=== PATIENT | female | born 1955 | race Caucasian/White ===

== ENCOUNTER 2022-03-02 14:04 | Outpatient (CLI) | payer OTHER, SELFPAY ==
--- OUTSIDE RECORDS SUMMARY | 2022-03-02 07:40 | XMS_ITS | Encounter Summary ---
:1955 Author Organization [facility] Address [address] [place] [address] Care Team Providers Name Role Phone Luis Pierce MD Primary Care Provider Unavailable Reason for Visit Reason Comments ANKLE PAIN VIA INTERFACE Encounter Details Date Type Department Care Team Description 10/04/1999 Orders Only [facility] SPRAIN/STRAIN OF ANKLE NOS; [address] LOWER LEG INJURY NOS [place], [place] [id number] Social History Tobacco Use Types Packs/Day Years Used Date Smoking Tobacco: Never Assessed Sex Assigned at Date Recorded Not on file documented as of this encounter Progress Notes Nick Umana - 10/04/1999 12:00 AM CSTS; Right ankle twisted, inversion injury. While walking stepped into a hole walking the dog. She also had a question about some back pain and some unsteadiness of her right leg, which she will pursue at my request here. O: However, ON EXAM, she is tender over the lateral fibulocalcaneal ligament. X-RAY appears to be negative. The anterior component is nil. She has negative Drawer sign, good pulses, good color. She has slight area of ecchymosis already. So I am going to have her go into an ankle air cast, elevate her leg, and over the next several days walk gingerly and recheck with her usual clinic, at [facility], for follow-up care. A: Right ankle sprain. P: As above. IN SUMMARY: RIGHT ANKLE SPRAIN cc: T PREPPER documented in this encounter Procedure Notes Brittney Steen - 10/04/1999 12:00 AM CSTAssociated Order(s): ANKLE 3 VIEWS CLINICAL DATA: Evaluate for fibular fracture. INTERPRETATION: RIGHT ANKLE - 10/04/99. FINDINGS: There is satisfactory alignment of the right ankle without evidence of fracture or dislocation. There is some soft tissue swelling over the lateral malleolus and evidence of a joint effusion suggesting possible hemarthrosis. IMPRESSION: Right ankle joint effusion and soft tissue swelling over the lateral malleolus. No evidence of an underlying fracture. Brittney Steen MD cc: Radiology SP Full Range I Spucc T PREPPER documented in this encounter Plan of Treatment Not on filedocumented as of this encounter Procedures Procedure Name Priority Date/Time Associated Diagnosis Comme nts RADEX ANKLE COMPL 10/04/1999 12:00 AM Lower Leg Injury Nos Results for this MINIMUM 3 VIEWS PAINT PREPPER procedure ar e in the results section. documented in this encounter Results ANKLE 3 VIEWS (10/04/1999 12:00 AM PAINT PREPPER) Anatomical Region Laterality Modality Other Specimen (Source) Anatomical Location Collection Method / Collectio n Time Received Time / Laterality Volume 10/04/1999 Transcriptions Brittney Steen - 10/04/1999 12:00 AM C STCLINICAL DATA: Evaluate for fibular fracture. INTERPRETATION: RIGHT ANKLE - 10/04/99. FINDINGS: There is satisfactory alignmen t of the right ankle without evidence of fracture or dislocation. The re is some soft tissue swelling over the lateral malleolus and evidence of a joint effusion suggesting possible hemarthrosis. IMPRESSION: Right ankle joint effusion a nd soft tissue swelling over the lateral malleolus. No evidence of an und erlying fracture. Brittney Steen MD cc: Radiology SP Full Range I Spucc Full Range Spucc RAD_1 documented in this encounter Visit Diagnoses Diagnosis Sprain of ankle, unspecified site Injury, other and unspecified, knee, leg , ankle, and foot documented in this encounter Care Teams Stamp Pad Finisher Relationship Specialty Start Date End Date Luis Pierce MD PCP - General 05/27/1998 documented as of this encounter
[2022-03-02 09:34] LABS: Albumin* 4.4 g/dL (3.3-5.0); Chloride* 105 mmol/L (96-114); Potassium* 4.6 mmol/L (3.6-5.1); Sodium* 139 mmol/L (135-149)
[2022-03-02 09:36] LABS: Bilirubin Total* 0.8 mg/dL (0.1-1.5); Creatinine* 1.6 mg/dL (0.5-1.5); Estimated Glomerular Filt Rate 35 ml/min
[2022-03-02 09:37] LABS: Alanine Aminotransferase* 46 U/L (4-35); Alkaline Phosphatase* 108 U/L (40-150); Aspartate Amino Transferase* 33 U/L (12-35); Blood Urea Nitrogen* 41 mg/dL (7-30); Carbon Dioxide* 22 mmol/L (20-32); Glucose* 153 mg/dL (60-115); Total Protein* 7.1 g/dL (6.0-8.3)
[2022-03-02 09:38] LABS: Calcium* 9.5 mg/dL (8.4-10.6)
== END 2022-03-02 14:05 | disposition home or self-care (01) ==
PROVIDERS: PCP Family Medicine; Visit Provider Family Medicine
DX: E11.9 Type 2 diabetes mellitus without complications (principal); I10 Essential (primary) hypertension
CPT/HCPCS: 80053

== ENCOUNTER 2022-04-07 09:19 | Outpatient (CLI) | payer OTHER, SELFPAY ==
--- OUTSIDE RECORDS SUMMARY | 2022-04-07 07:21 | XMS_ITS | Encounter Summary ---
:1955 Author Organization [employer] Address [address] [place] [address] Care Team Providers Name Role Phone Alisha Kimball MD Primary Care Provider Reason for Visit Reason Comments Dental Exam none Dental Hygiene Encounter Details Date Type Department Care Team Description 02/24/2022 Office Visit [facility] Gen Gonzalez [facility] [address] [place] [address] Dental Exam (none); Dentistry [place], Exam Dental Hygiene [address] [place] [address] Social History Tobacco Use Types Packs/Day Years Used Date Smoking Tobacco: Never Smokeless Tobacco: Never Alcohol Use Standard Drinks/Week Comments No 0 (1 standard drink = 0.6 oz pure alcoho l) Sex Assigned at Date Recorded Not on file documented as of this encounter Last Filed Vital Signs Vital Sign Reading Time Taken Comments Blood Pressure - - Pulse 62 02/24/2022 11:05 AM CDT Temperature - - Respiratory Rate - - Oxygen Saturation - - Inhaled Oxygen Concentration - - Weight - - Height - - Body Mass Index - - documented in this encounter Patient Instructions Patient InstructionsJamaal Cleveland DDS - 02/24/2022 11:10 AM CDT Your next hygiene recall is due 06/26/2022 YOUR PERSONAL DENTAL RISK REPORT CARIES (TOOTH DECAY) PERIODONTAL (GUM) DISEASE ORAL CANCER LOW mod high LOW mod high LOW elevated ^ ^ ^ Risk Level: LOW How to Maintain Your Low Risk: Hygiene recall at 12 to 18 months. Instruction from dental professional on brushing, flossing, and use of oral hygiene products. Congratulations on your low risk for tooth decay. Making healthy life style choices including brushing twice a day; daily flossing; and healthy dietary choices should help you maintain this low risk. Risk Level: LOW Risk Factors: Have had a diagnosis of gum disease either with or without past treatment. Intermediate levels of plaque. How to Maintain Your Low Risk: Return visit with the dental hygienist at 6 month intervals to assess periodontal condition and provide necessary treatment. Oral hygiene instruction by the dentist, dental hygienist, or dental production administrative assistant. Congratulations on your low risk for gum disease. Making healthy life style choices including brushing twice a day; daily flossing; and not using tobacco should help you maintain this low risk. Risk Level: LOW Risk Factors: Incidence of oral cancer increases with age. How to Maintain your Low Risk: Congratulations on your low risk for oral cancer. Making healthy life style choices such as not using tobacco and low to moderate alcohol use should help you maintain this low risk. Melia, we look forward to seeing you at your next visit! Thank you for choosing [facility]. documented in this encounter Progress Notes Addie Gonzalez RD - 02/24/2022 11:10 AM CDT HYGIENE PROPHY NOTE COLLABORATIVE AGREEMENT: The patient consents to have charting and prophylaxis by the dental hygienist performed with the understanding that this care is not a substitute for an examination by a dentist. These activities were performed under a collaborating agreement with Josue Kerns DDS (License #: [id number]) PROCEDURAL PAUSE: Patient identity verified: Yes Treatment plan/site verified with the patient: Yes Instruments/equipment verified: Yes Any medication/allergy contraindications: No PRESENTATION: Plaque: Localized, light supra-gingival , interproximal, and posterior buccal Calculus: Localized, moderate supra-gingival , sub-gingival, and mandibular anterior Stain: Localized, light coffee/tea Bleeding: Localized light Gingival tissue: Normal Mucogingival concerns: Present recession ACTIVITIES: Hand scale, Essential selective polishing, and Flossed all contacts PATIENT EDUCATION: Caries risk, Periodontal risk, OHI, Demonstrated flossing, Oral care adjuncts, and Fluoride rinse NEXT PLANNED HYGIENE VISIT: Hygiene Prophy with exam Addie Gonzalez RDH 02/24/2022, 11:31 AM --End of Note-- Jamaal Cleveland DDS - 02/24/2022 11:10 AM CDT RECALL EXAM NOTE REASON FOR VISIT/CHIEF COMPLAINT: Loc is a 67 y.o. female who presents for Dental Exam (none) andDental Hygiene CHART REVIEW: Reviewed with patient: Medical history, Dental history, Problem list, Periodontal charting, and Radiographs. SOFT TISSUE, HEAD AND NECK EXAMINATION: Lips: Normal Tongue: Normal Palate: Normal Throat: Normal Floor of the mouth: Normal Mucosa: Normal Head and neck: Normal TMD EVALUATION: Palpation Pain: None Joint Sounds: None Pain with Range of Motion: None OCCLUSAL EXAMINATION: Unchanged COSMETIC CONCERNS: Patient's Perception: Acceptable Dentist's Perception: Acceptable TREATMENT REVIEW AND FOLLOW-UP: Discussed the dental findings, treatment options, and prognosis withthe patient. All questions answered and informed consent was obtained. Recommended Recall Interval: Examination: 8 months Recall prophy: 4 months Planned Recall Interval: Examination: 8 months Recall prophy: 4 months No treatment indicated at this time. Next Planned Visit: recall. Jamaal Cleveland DDS 02/24/2022, 11:18 AM --End of Note-- documented in this encounter Plan of Treatment Scheduled Orders Name Type Priority Associated Order Schedule Diagnoses PROPHYLAXIS-ADULT Dental Procedures Routine 1 Occ urrences RECALL starting 2021 PERIODIC ORAL Dental Procedures Routine 1 Occurre nces EVALUATION starting 2021 [id number] Dental Procedures Routine 1 Oc currences starting 2021 TOPICAL FLUORIDE Dental Procedures Routine 1 Occu rrences VARNISH starting 2021 documented as of this encounter Procedures Procedure Name Priority Date/Time Associated Diagnosis Comme nts PERIODIC ORAL Routine 02/24/2022 11:10 AM Chronic periodontiti s, EVALUATION CDT localized, slight PROPHYLAXIS-ADULT Routine 02/24/2022 11:10 AM Chronic periodon titis, RECALL CDT localized, slight documented in this encounter Visit Diagnoses Diagnosis Chronic periodontitis, localized, slight - Primary documented in this encounter Care Teams Cigarette Examiner Relationship Specialty Start Date End Date Alisha Kimball MD PCP - General 07/08/05 [address] [place] [address] documented as of this encounter
--- OUTSIDE RECORDS SUMMARY | 2022-04-07 07:21 | XMS_ITS | Encounter Summary ---
:1955 Author Organization [facility] Address [address], [place] [address] Care Team Providers Name Role Phone Alisha Kimball MD Primary Care Provider Reason for Visit Reason Comments Dental Hygiene none Encounter Details Date Type Department Care Team Description 10/16/2021 Office Visit [facility] Addie Gonzalez ental Hygiene (none) [facility] [address] [address] [phone] (Wo rk) Social History Tobacco Use Types Packs/Day Years Used Date Smoking Tobacco: Never Smokeless Tobacco: Never Alcohol Use Standard Drinks/Week Comments No 0 (1 standard drink = 0.6 oz pure alcoho l) Sex Assigned at Date Recorded Not on file documented as of this encounter Last Filed Vital Signs Vital Sign Reading Time Taken Comments Blood Pressure - - Pulse 80 10/16/2021 9:17 AM CDT Temperature - - Respiratory Rate - - Oxygen Saturation - - Inhaled Oxygen Concentration - - Weight - - Height - - Body Mass Index - - documented in this encounter Patient Instructions Patient InstructionsAddie Gonzalez RDH - 10/16/2021 10:04 AM CDT Your next hygiene recall is due 02/15/2022 YOUR PERSONAL DENTAL RISK REPORT CARIES (TOOTH DECAY) PERIODONTAL (GUM) DISEASE ORAL CANCER LOW mod high low MOD high LOW elevated ^ ^ ^ Risk [...] you maintain this low risk. Risk Level: MODERATE Risk Factors: Have had a diagnosis of gum disease either with or without past treatment. No recent progression of gum disease. Intermediate levels of plaque. How to Reduce Your Risk: Return visit with the dental hygienist at 3 month intervals to assess periodontal condition and provide necessary treatment. Specific information about what causes periodontal disease and what steps can be taken to help control it. Use specific products to assist with proper oral hygiene such as electric toothbrush with timer. Schedule a separate appointment to assess the results of treatment provided for periodontal disease. Risk Level: LOW Risk Factors: Incidence of [...] in this encounter Progress Notes Addie Gonzalez RDH - 10/16/2021 9:20 AM CDT HYGIENE PROPHY NOTE (NO EXAM) REASON FOR VISIT/CHIEF COMPLAINT: Loc is a 66 y.o. female who presents for Dental Hygiene (none) COLLABORATIVE AGREEMENT: The patient consents to have charting and prophylaxis by the dental hygienist performed with the understanding that this care is not a substitute for an examination by a dentist. These activities were performed under a collaborating agreement with Josue Kerns DDS (License #: [id number]) CHART REVIEW: Reviewed with patient: Medical history, Dental history, Problem list, Periodontal charting and Radiographs PROCEDURAL PAUSE: Patient identity verified: Yes Treatment plan/site verified with the patient: Yes Instruments/equipment verified: Yes Any medication/allergy contraindications: No PRESENTATION: Plaque: Localized, light supra-gingival , interproximal and posterior buccal Calculus: Localized, light supra-gingival , interproximal and mandibular anterior Stain: Localized, light coffee/tea Bleeding: Localized light Gingival tissue: Normal Mucogingival concerns: Present recession ACTIVITIES: Hand scale, Essential selective polishing and Flossed all contacts PATIENT EDUCATION: Caries risk, Periodontal risk, OHI, Demonstrated flossing, Oral care adjuncts andFluoride rinse TREATMENT REVIEW AND FOLLOW-UP: Discussed the Prognosis and Treatment options with the patient. All questions answered and informed consent was obtained. Recommended Recall Interval: Examination: 8 months : Recall prophy: 4 months Planned Recall Interval: Examination: 8 months : Recall prophy: 4 months Next Planned Hygiene Visit: Hygiene Prophy with exam Addie Gonzalez RDH 10/16/2021, 10:05 AM --End of Note-- documented in this encounter Plan of Treatment Not on filedocumented as of this encounter Procedures Procedure Name Priority Date/Time Associated Diagnosis Comme nts PROPHYLAXIS-ADULT Routine 10/16/2021 9:20 AM CDT Chronic perio dontitis, RECALL localized, slight documented in this encounter Visit Diagnoses Diagnosis Chronic periodontitis, localized, slight - Primary documented in this encounter Care Teams Low Heel Builder Relationship Specialty Start Date End Date Alihsa Kimball MD PCP - General 07/08/05 [address] [place] [address] documented as of this encounter
--- OUTSIDE RECORDS SUMMARY | 2022-04-07 07:21 | XMS_ITS | Encounter Summary ---
:1955 Author Organization [facility] Address [address] [place] [address] Care Team Providers Name Role Phone Alisha Kimball MD Primary Care Provider Reason for Referral Consult/Transfer Care (Routine) - Incomplete Specialty Diagnoses / Procedures Referred By Contact Refer red To Contact Diagnoses CAREPLAN: ANTI-COAGULATION Paroxysmal atrial fibrillation (HRC) Madiha Olivares III, MD [address] [place] [address] Referral ID Status Reason Start Date Expiration Date Visits V isits Requested Authorized [id number] Incomplete 06/14/2020 09/13/2021 1 1 Scheduling Instructions . LSTERED GOODS CRAFTER Reason for Visit Reason Comments Medication Questions Encounter Details Date Type Department Care Team Description 06/14/2020 Telephone [facility] Alisha Kimball MD Medication Questions Practice [address] [facility] [address] [facility] [place] [address] [place] [address] [phone] Social History Tobacco Use Types Packs/Day Years Used Date Smoking Tobacco: Never Smokeless Tobacco: Never Alcohol Use Standard Drinks/Week Comments No 0 (1 standard drink = 0.6 oz pure alcoho l) Sex Assigned at Date Recorded Not on file documented as of this encounter Patient Instructions Patient InstructionsMadiha Olivares III, MD - 06/14/2020 1:12 PM CST LSTERED GOODS CRAFTER documented in this encounter Nursing Notes Addie Gonzalez RDH - 06/12/2021 9:58 AM CST Pt. Requested removal, the patient takes eliquis. Addie Gonzalez RDH 06/12/2021, 9:59 AM LSTERED GOODS CRAFTER Madiha Olivares III, MD - 06/14/2020 5:06 PM CST Order is signed. Madiha Olivares III, MD LSTERED GOODS CRAFTER Juan Hoffman - 06/14/2020 2:16 PM CST Pt called states that she is not starting the warfarin until Jul. For now she needs just 15 days worth of Eliquis sent to [facility]. Per pt, please just send 15 days worth of medication, she will do labs when she comes back from [place], thank you LSTERED GOODS CRAFTER Mary De La O - 06/14/2020 1:52 PM CST Patient called back and states that she will make it work and to cancel this request. LSTERED GOODS CRAFTER Mickie Welsh RN - 06/14/2020 1:40 PM CST Public Health Educator discussed with pt. Pt states she has enough elquist until 07/05/19. Pt will be back in town 2week of July. Pt states she can go Wednesday morning to get labs as she is leaving for [place] on wed06/19/20-07/19/19. Please advise. Mickie Welsh RN 06/14/2020, 1:42 PM LSTERED GOODS CRAFTER Madiha Olivares III, MD - 06/14/2020 1:12 PM CST Will order for warfarin initiation and refer to the coumadin clinic. Needs baseline labs. RN please inform patient.Madiha Olivares III, MD [employer] CRAFTER Rocio Garcia - 06/14/2020 10:15 AM CST Medications - Med Change / Question Are you having symptoms? No Is this a medication change or a general question? Med Question What is the name of the medication, or what is it for? Warfarin , requesting to go off the: ELIQUIS 5 MG tablet 180 Tablet 3 06/15/2019 Sig: ?TAKE 1 TABLET BY MOUTH TWICE A DAY What is your question or concern? As discussed, I was asked to call back when i have decided to start Warfarin. We are leaving for a month, next week Wednesday. Will forward to [facility] - Dr Olivares (Dr Kimball out of clinic) Who prescribed it? Alisha Kimball MD Is it okay to leave a detailed message on your voicemail? Yes For this medication, patient would like it filled at the pharmacy listed in Meds & Orders. [Senior Training And Development Rep/Appt Center: Verify the pharmacy patient would like to use for this request is highlighted in blue in Pharmacy Selection under Meds & Orders] Rocio Garcia Please route to: Care Team Pool If this is a Medicaid drug change, please route to: clinic specific Refill automotive salesperson LSTERED GOODS CRAFTER documented in this encounter Plan of Treatment Scheduled Referrals Name Type Priority Associated Diagnoses Order S chedule [facility] Anticoagulation Dosing Referral Routine CAREPLAN: Or dered: Order ANTI-COAGULATION 06/14/2020 Paroxysmal atrial fibrillation (HRC) documented as of this encounter Visit Diagnoses Diagnosis CAREPLAN: ANTI-COAGULATION 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
--- OUTSIDE RECORDS SUMMARY | 2022-04-07 07:21 | XMS_ITS | Clinical Summary ---
:1955 Author Organization [employer] Address [address] [place] [address] Care Team Providers Name Role Phone Alisha Kimball MD Primary Care Provider Source Comments You are receiving this document as you are listed as the primary care provider,follow-up provider, or the patient has been referred to you for consultation.This is in compliance with the Medicare and Medicaid EHR Incentive Program,which states Providers who transition their patient to another setting of careor provider of care or refers their patient to another provider of care shouldprovide summarycare record for each transition of care or referral. [place] Allergies Active Allergy Reactions Severity Noted Date Comments Sulfa Antibiotics Redness, Swelling 02/25/2005 Medications Medication Sig Dispensed Refills Start Date End Date Status blood glucose Dispense 1 meter. 1 Each 0 12/19/2014 Active monitoring device lancets (ACCU-CHEK Testing blood 102 Each 11 01/03/2020 Active FASTCLIX)Indications: sugars 1 time(s) Type 2 diabetes a day. Pharmacist mellitus without may substitute complication, without meter/supplies if long-term current use insurance or of insulin (HRC) patient requires specific equipment or model blood glucose Test once daily. 100 Each 3 01/10/2020 Active (ACCU-CHEK STACEY PLUS) Use as directed. test stripIndications: Pharmacy dispense Type 2 diabetes brand based on mellitus without insurance. complication, without long-term current use of insulin (HRC) losartan (COZAAR) 50 Take 1 Tablet by 90 Tablet 3 04/16/2020 Active MG tabletIndications: mouth daily. Essential hypertension (HRC) chlorthalidone Take 1 Tablet by 90 Tablet 3 04/16/2020 Active (HYGROTON) 25 MG mouth daily. tabletIndications: Essential hypertension (HRC) apixaban (ELIQUIS) 5 Take 1 Tablet by 30 Tablet 0 06/14/2020 Active MG tabletIndications: mouth two times a Paroxysmal atrial day. fibrillation (HRC) metFORMIN XR TAKE 4 TABLETS BY 360 Tablet 2 08/26/2020 Active (GLUCOPHAGE XR) 500 MG MOUTH DAILY WITH 24 hour release tablet BREAKFAST. atorvastatin (LIPITOR) TAKE 1/2 TABLET 45 Tablet 2 08/26/2020 Active 10 MG tablet BY MOUTH EVERY DAY sotalol (BETAPACE) 80 0 04/14/2021 Active MG tablet magnesium oxide Take 400 mg by 0 11/19/2021 Active (MAG-OX) 400 MG tablet mouth daily. Active Problems Problem Noted Date Paroxysmal atrial fibrillation 12/08/2017 Type 2 diabetes mellitus without complication, without long-term current 12/07/2017 use of insulin Elevated liver enzymes 12/09/2016 Adenomatous polyp of colon 04/08/2016 Hypercholesterolemia 10/31/2012 Essential hypertension 10/26/2011 Family history of osteoporosis 04/28/2010 Mallet finger 08/09/2007 Resolved Problems Problem Noted Date Resolved Date CAREPLAN: ANTI-COAGULATION 06/14/2020 08/16/2020 Overview: See addendum to anticoagulation encounte r from 06/14/20. Pt cont on Eliquis but is no longer with [facility]. Per pt Anticoagulation is being managed by [facility]. Kian Barnes RN/[facility] 08/16/2020 10:36 AM Heart palpitations 11/05/2014 12/08/2017 CAREPLAN: [facility] 01/23/2013 06/07/2013 Overview: Background: Engaged in Disease Management-Diabetes: Marisol Cruz RN [phone] Diabetes mellitus, type 2 05/14/2010 12/07/2017 Encounters Date Type Specialty Care Team Description 02/24/2022 Office Visit General Dentistry Addie Gonzalez Exam (none); A, [facility] Dental Hygiene Yard[facility], Exam from Last 3 Months Immunizations Name Administration Dates Next Due Flu Vac (3+ yrs) 04/01/2012, 05/01/2011, 04/18/2010 Influenza IIV3 (Trivalent) Fluzone 03/28/2019 Highdose, 65+ Yrs (46848) Influenza IIV4 (Quadrivalent) 0.5mL 04/11/2018, 05/19/2017, 04/30/2016, (56095) 04/27/2014 Influenza IIV4 (Quadrivalent) Fluad, 04/11/2020 65+ Yrs Influenza, Unspecified Formulation 04/28/2007 PCV13 (Prevnar) 01/03/2020 PPSV23 (Pneumovax) 10/31/2012 Td 06/01/1994 Tdap 04/01/2012, 09/09/2006 Varicella 10/18/1996 (Deferred: Immune by Disease) Zoster (Zostavax) 05/19/2017 Zoster RZV (Shingrix) 01/03/2020 Family History Medical History Relation Name Comments Coronary Artery Disease Father Heart Attack Father Hyperlipidemia Father Hypertension Father Cancer, Ovary Mother 70's Cancer, Uterine Mother Depression Mother Diabetes, Type II Mother Hyperlipidemia Mother Hypertension Mother Osteoporosis Mother Schizophrenia Brother 4 Thyroid Disorder Brother 4 ?Graves disease Diabetes, Type II Brother 5 Cancer, Ovary Maternal Grandmother 40's Cerebrovascular Disease Maternal Grandmother Osteoporosis Maternal Grandmother ADHD Son 4 Cancer, Breast Negative Family History Glaucoma Negative Family History Macular Degeneration Negative Family History Relation Name Status Comments Father (Age 64) [place] Mother (Age 76) ovarian cancer Brother 1 Alive Brother 2 Alive Brother 3 Alive Brother 4 Alive Brother 5 Alive Maternal Grandfather accident Maternal Grandmother [place] Paternal Grandfather [place] Paternal Grandmother [place] Sister Alive Son 1 Alive Son 2 Alive Son 3 Alive Son 4 Alive Social History Tobacco Use Types Packs/Day Years Used Date Smoking Tobacco: Never Smokeless Tobacco: Never Alcohol Use Standard Drinks/Week Comments No 0 (1 standard drink = 0.6 oz pure alcoho l) Sex Assigned at Date Recorded Not on file Last Filed Vital Signs Vital Sign Reading Time Taken Comments Blood Pressure 144/115 04/16/2020 11:54 AM CDT Pulse 62 02/24/2022 11:05 AM CDT Temperature 36.6 ??C (97.8 ??F) 04/16/2020 11:54 AM CDT Respiratory Rate 20 04/16/2020 11:54 AM CDT Oxygen Saturation 98% 04/16/2020 11:54 AM CDT Inhaled Oxygen Concentration - - Weight 83 kg (183 lb) 04/16/2020 11:54 AM CDT Height 162 cm (5' 3.78) 01/03/2020 8:07 AM CDT Body Mass Index 31.63 01/03/2020 8:07 AM CDT Plan of Treatment Health Maintenance Due Date Last Done Comments COVID-19 Vaccine (#1) 1955 HepB (1) 1974 Diabetes: HGBA1C 07/12/2020 04/11/2020, 01/03/2020, 12/02/2018, Additional history exists Diabetes: Foot Exam 01/02/2021 01/03/2020, 12/12/2018, 12/08/2017, Additional history exists Medicare Annual Wellness 01/02/2021 01/03/2020, 01/03/2020 Visit Pneumococcal 65+ Yrs (3 - 01/02/2021 01/03/2020, 10/31/2012 PPSV23) Diabetes: Eye Exam 01/24/2021 01/25/2020, 01/25/2020, 01/24/2019, Additional history exists Mammogram 02/11/2021 02/12/2020, 02/10/2019, 01/18/2018, Additional history exists Colonoscopy 04/01/2021 04/01/2016, 01/26/2006, 01/26/2006 Diabetes: Creatinine 04/11/2021 04/11/2020, 01/03/2020, 12/02/2018, Additional history exists Diabetes: Urine 04/11/2021 04/11/2020, 01/03/2020, Microalbumin 12/16/2018, Additional history exists Influenza (#1) 2022 04/18/2020, 04/11/2020, 03/28/2019, Additional history exists DTaP/Tdap/Td (3 - Tdap) 04/01/2022 04/01/2012, 09/09/2006, 06/01/1994 Diabetes: Lipid Panel 01/02/2025 01/03/2020, 12/02/2018, 11/26/2017, Additional history exists Hep C Screening (Preventive Completed 12/07/2016 Services) Dexa Completed 02/22/2020, 05/15/2010 Zoster/Shingles Completed 04/18/2020, 02/16/2020, 01/03/2020, Additional history exists HepA Aged Out No longer eligib le based on patient 's age to complete this topic Hib Aged Out No longer eligib le based on patient 's age to complete this topic IPV (Polio) Aged Out No longer eligib le based on patient 's age to complete this topic MCV4 Aged Out No longer eligib le based on patient 's age to complete this topic Procedures Procedure Name Priority Date/Time Associated Diagnosis Comme nts PROPHYLAXIS-ADULT Routine 02/24/2022 11:10 AM Chronic periodon titis, RECALL CDT localized, slight PERIODIC ORAL Routine 02/24/2022 11:10 AM Chronic periodontiti s, EVALUATION CDT localized, slight from Last 3 Months Insurance Payer Benefit Plan / Subscriber ID Effective Phone Address T ype Group Dates [facility] [id number] 2017-Pres Commercial [place] DENT[place]ICARE MEDICARE [id number] 2019-Pres Medi care ent [facility] MEDICARE [id number] 2018-Pres Commercial SUPPLEMENT ent [phone] [id number] (Work) Loc [place] Personal/Family Self 1955 [address] (Home) [place], [place] [phone] (Work) 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
--- OUTSIDE RECORDS SUMMARY | 2022-04-07 07:21 | XMS_ITS | Encounter Summary ---
:1955 Author Organization [email or web address] Address [address] [address] Care Team Providers Name Role Phone Alisha Kimball MD Primary Care Provider Reason for Visit Reason Comments Dental Hygiene no cc;s Encounter Details Date Type Department Care Team Description 10/08/2020 Office Visit [facility] Dori Mayer De nta Hygiene (no Dentistry [facility] cc;s) [id number] [facility] [id number] [place] [phone] Social History Tobacco Use Types Packs/Day Years Used Date Smoking Tobacco: Never Smokeless Tobacco: Never Alcohol Use Standard Drinks/Week Comments No 0 (1 standard drink = 0.6 oz pure alcoho l) Sex Assigned at Date Recorded Not on file documented as of this encounter Last Filed Vital Signs Vital Sign Reading Time Taken Comments Blood Pressure - - Pulse 90 10/08/2020 9:20 AM CDT Temperature - - Respiratory Rate - - Oxygen Saturation - - Inhaled Oxygen Concentration - - Weight - - Height - - Body Mass Index - - documented in this encounter Patient Instructions Patient InstructionsDori Mayer [facility] - 10/08/2020 9:10 AM CDT Your next hygiene recall is due 02/07/2021 YOUR PERSONAL DENTAL RISK REPORT CARIES (TOOTH DECAY) PERIODONTAL (GUM) DISEASE ORAL CANCER LOW mod high low MOD high LOW elevated ^ ^ ^ Risk Level: LOW How to Maintain Your Low Risk: Congratulations on your low risk for tooth decay. Making healthy life style choices including brushing twice a day; daily flossing; and healthy dietary choices should help you maintain this low risk. Risk Level: MODERATE Risk Factors: Diagnosed with either Type I or Type II diabetes. How to Reduce Your Risk: Return visit with the dental hygienist at 3 month intervals to assess periodontal condition and provide necessary treatment. Risk Level: LOW Risk Factors: Incidence of [...] [facility]. documented in this encounter Progress Notes Kenzie Flaherty DDS - 10/08/2020 9:10 AM CDT RECALL EXAM NOTE REASON FOR VISIT/CHIEF COMPLAINT: Loc is a 65 y.o. female who presents for Dental Hygiene (no cc;s) CHART REVIEW: Reviewed with patient: Medical history, Dental history, Problem list, Periodontal charting and Radiographs SOFT TISSUE, HEAD AND NECK EXAMINATION: Lips: Normal Tongue: Normal Palate: Normal Throat: Normal Floor of the mouth: Normal Mucosa: Normal Head and neck: Normal TMD EVALUATION: Palpation Pain: None Joint Sounds: None Pain with Range of Motion: None OCCLUSAL EXAMINATION: Unchanged COSMETIC CONCERNS: Patient's Perception: Acceptable Dentist's Perception: Acceptable TREATMENT REVIEW AND FOLLOW-UP: Discussed the Dental findings, Prognosis and Treatment options with the patient. All questions answered and informed consent was obtained. Recommended Recall Interval: Examination: 6 months : Recall prophy: 6 months Planned Recall Interval: Examination: 6 months : Recall prophy: 6 months Next Planned Visit: 6 mo recall Kenzie Flaherty DDS 10/08/2020, 9:34 AM --End of Note-- Kenzie Flaherty DDS - 10/08/2020 9:10 AM CDT HYGIENE PROPHY NOTE Patient given 1%-1.5% hydrogen peroxide, rinsed for 60 seconds prior to procedure. COLLABORATIVE AGREEMENT: The patient consents to have charting and prophylaxis by the dental hygienist performed with the understanding that this care is not a substitute for an examination by a dentist. These activities were performed under a collaborating agreement with Jamaal Cleveland DDS (License #:[id number]) PRESENTATION: Oral Hygiene: Fair Plaque: Localized, light supra-gingival and interproximal Calculus: Localized, light mandibular anterior Stain: None Bleeding: Localized light Gingival tissue: Normal Mucogingival concerns: Absent ACTIVITIES: Hand scale, Essential selective polishing and Flossed all contacts PATIENT EDUCATION: Caries risk, Periodontal risk and Oral cancer risk NEXT PLANNED HYGIENE VISIT: Hygiene Prophy with exam Dori Mayer RDH 10/08/2020, 9:55 AM --End of Note-- documented in this encounter Plan of Treatment Not on filedocumented as of this encounter Procedures Procedure Name Priority Date/Time Associated Diagnosis Comme nts PERIODIC ORAL Routine 10/08/2020 9:10 AM Routine adult health EVALUATION CDT maintenance PROPHYLAXIS-ADULT Routine 10/08/2020 9:10 AM Routine adult hea lth RECALL CDT maintenance documented in this encounter Visit Diagnoses Diagnosis Routine adult health maintenance - Prima ry Routine general medical examination at a health care facility documented in this encounter Care Teams Software 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
--- OUTSIDE RECORDS SUMMARY | 2022-04-07 07:21 | XMS_ITS | Encounter Summary ---
:1955 [facility] [address] [place] [address] Care Team Providers Name Role Phone Ailsha Kimball MD Primary Care Provider Reason for Referral Procedure/Equipment (Routine) - Incomplete Specialty Diagnoses / Procedures Referred By Contact Refer red To Contact Diagnoses Screening for osteoporosis Alisha Kimball MD Procedures DEXA Bone Density Spine/Hip [address] [place] [address] Referral ID Status Reason Start Date Expiration Date Visits V isits Requested Authorized [id number] Incomplete 01/03/2020 04/03/2021 1 1 Reason for Visit Reason Comments ROUTINE HEALTH MAINTENANCE Welcome To Medicare FOLLOW-UP,DIABETES MEDICATION CHECK SKIN LESION left elbow NOISES IN THE EAR ADVANCE DIRECTIVES DISCUSSION pt has one at home Encounter Details Date Type Department Care Team Description 01/03/2020 Office Visit [facility] Alisha Bui, Welcome to Medicare preventive visit (Primary Dx); Practice MD Encounter for routine adult health exami nation without abnormal findings; [address] Type 2 diabetes mellitus without complic ation, without long-term current use of insulin (HRC); [place] [address] [place] [address] Essential hypertension; [phone] Paroxysmal atri al fibrillation (HRC); (Work) Screening for osteoporosis; Immunity status testing; Common wart Social History Tobacco Use Types Packs/Day Years Used Date Smoking Tobacco: Never Smokeless Tobacco: Never Alcohol Use Standard Drinks/Week Comments No 0 (1 standard drink = 0.6 oz pure alcoho l) Sex Assigned at Date Recorded Not on file documented as of this encounter Last Filed Vital Signs Vital Sign Reading Time Taken Comments Blood Pressure 127/106 01/03/2020 8:59 AM CDT Pulse 93 01/03/2020 8:59 AM CDT Temperature 36.2 ??C (97.2 ??F) 01/03/2020 8:07 AM CDT Respiratory Rate 16 01/03/2020 8:07 AM CDT Oxygen Saturation - - Inhaled Oxygen Concentration - - Weight 85.2 kg (187 lb 12.8 oz) 01/03/2020 8:07 AM CDT Height 162 cm (5' 3.78) 01/03/2020 8:07 AM CDT Body Mass Index 32.46 01/03/2020 8:07 AM CDT documented in this encounter Patient Instructions Patient Mercy Joiner - 01/03/2020 8:00 AM CDT Images from the original note were not included. Annual Wellness Visit Summary Your care team is recommending the following tests, procedures or services. Some of these recommendations may not be fully covered by Medicare or your insurance. If you have questions, check with your insurance to determine coverage before completing these services. Health Maintenance Due Health Maintenance Due Topic Date Due ??? Medicare Welcome Visit 1955 ??? HepB (1 of 3 - Risk 3-dose series) 1973 ??? Zoster (2 of 3) 07/14/2017 ??? Pneumococcal (1 of 2 - PCV13 first series - PCV13) 2019 ??? Diabetes: HGBA1C 03/04/2019 ??? Diabetes: Creatinine 12/03/2019 ??? Diabetes: Foot Exam 12/13/2019 ??? Diabetes: Urine Microalbumin 12/17/2019 ??? Diabetes: Eye Exam 01/25/2020 If your Medicare Welcome or Annual Wellness Visit is showing you are due in the above list, this will be updated after this visit. You had this completed today and are not due for another year. Well Visit, Women 50 to 65: Care Instructions Your Care Instructions Physical exams can help you stay healthy. Your doctor has checked your overall health and may have suggested ways to take good care of yourself. He or she also may have recommended tests. At home, you can help prevent illness with healthy eating, regular exercise, and other steps. Follow-up care is a [place] part of your treatment and safety. Be sure to make and go to all appointments, and call your doctor if you are having problems. It's also a good idea to know your test results and keep a list of the medicines you take. How can you care for yourself at home? ?? Reach and stay at a healthy weight. This will lower your risk for many problems, such as obesity,diabetes, heart disease, and high blood pressure. ?? Get at least 30 minutes of exercise on most days of the week. Walking is a good choice. You also may want to do other activities, such as running, swimming, cycling, or playing tennis or team sports. ?? Do not smoke. Smoking can make health problems worse. If you need help quitting, talk to your doctor about stop-smoking programs and medicines. These can increase your chances of quitting for good. ?? Protect your skin from too much sun. When you're outdoors from 10 a.m. to 4 p.m., stay in the shade or cover up with clothing and a hat with a wide brim. Wear sunglasses that block UV rays. Even when it's cloudy, put broad-spectrum sunscreen (SPF 30 or higher) on any exposed skin. ?? See a dentist one or two times a year for checkups and to have your teeth cleaned. ?? Wear a seat belt in the car. Follow your doctor's advice about when to have certain tests. These tests can spot problems early. ?? Cholesterol. Your doctor will tell you how often to have this done based on your age, family history, or other things that can increase your risk for heart attack and stroke. ?? Blood pressure. Have your blood pressure checked during a routine doctor visit. Your doctor will tell you how often to check your blood pressure based on your age, your blood pressure results, and other factors. ?? Mammogram. Ask your doctor how often you should have a mammogram, which is an X-ray of your breasts. A mammogram can spot breast cancer before it can be felt and when it is easiest to treat. ?? Pap test and pelvic exam. Ask your doctor how often you should have a Pap test. You may not need to have a Pap test as often as you used to. ?? Vision. Have your eyes checked every year or two or as often as your doctor suggests. Some experts recommend that you have yearly exams for glaucoma and other age-related eye problems starting at age 50. ?? Hearing. Tell your doctor if you notice any change in your hearing. You can have tests to find out how well you hear. ?? Diabetes. Ask your doctor whether you should have tests for diabetes. ?? Colorectal cancer. Your risk for colorectal cancer gets higher as you get older. Some experts saythat adults should start regular screening at age 50 and stop at age 75. Others say to start before age 50 or continue after age 75. Talk with your doctor about your risk and when to start and stop screening. ?? Thyroid disease. Talk to your doctor about whether to have your thyroid checked as part of a regular physical exam. Women have an increased chance of a thyroid problem. ?? Osteoporosis. You should begin tests for bone density at age 65. If you are younger than 65, ask your doctor whether you have factors that may increase your risk for this disease. You may want to have this test before age 65. ?? Heart attack and stroke risk. At least every 4 to 6 years, you should have your risk for heart attack and stroke assessed. Your doctor uses factors such as your age, blood pressure, cholesterol, andwhether you smoke or have diabetes to show what your risk for a heart attack or stroke is over the next 10 years. When should you call for help? Watch closely for changes in your health, and be sure to contact your doctor if you have any problems or symptoms that concern you. Where can you learn more? 1. Go to https://Calend[employer]/healthlibrary or bunkersofa/Submitnetlibrary. 2. Enter Y074 in the search box. Current as of: February 22, 2019?Content Version: 12.4 ?? [id number] [employer]. Care instructions adapted under license by your healthcare professional. If you have questions abouta medical condition or this instruction, always ask your healthcare professional. [employer] disclaims any warranty or liability for your use of this information. Well Visit, Over 65: Care Instructions Your Care Instructions Physical exams can help you stay healthy. Your doctor has checked your overall health and may have suggested ways to take good care of yourself. He or she also may have recommended tests. At home, you can help prevent illness with healthy eating, regular exercise, and other steps. Follow-up care is a israel part of your treatment and safety. Be sure to make and go to all appointments, and call your doctor if you are having problems. It's also a good idea to know your test results and keep a list of the medicines you take. How can you care for yourself at home? ?? Reach and stay at a healthy weight. This will lower your risk for many problems, such as obesity,diabetes, heart disease, and high blood pressure. ?? Get at least 30 minutes of exercise on most days of the week. Walking is a good choice. You also may want to do other activities, such as running, swimming, cycling, or playing tennis or team sports. ?? Do not smoke. Smoking can make health problems worse. If you need help quitting, talk to your doctor about stop-smoking programs and medicines. These can increase your chances of quitting for good. ?? Protect your skin from too much sun. When you're outdoors from 10 a.m. to 4 p.m., stay in the shade or cover up with clothing and a hat with a wide brim. Wear sunglasses that block UV rays. Even when it's cloudy, put broad-spectrum sunscreen (SPF 30 or higher) on any exposed skin. ?? See a dentist one or two times a year for checkups and to have your teeth cleaned. ?? Wear a seat belt in the car. Follow your doctor's advice about when to have certain tests. These tests can spot problems early. For men and women ?? Cholesterol. Your doctor will tell you how often to have this done based on your overall health and other things that can increase your risk for heart attack and stroke. ?? Blood pressure. Have your blood pressure checked during a routine doctor visit. Your doctor will tell you how often to check your blood pressure based on your age, your blood pressure results, and other factors. ?? Diabetes. Ask your doctor whether you should have tests for diabetes. ?? Vision. Experts recommend that you have yearly exams for glaucoma and other age-related eye problems. ?? Hearing. Tell your doctor if you notice any change in your hearing. You can have tests to find out how well you hear. ?? Colon cancer tests. Keep having colon cancer tests as your doctor recommends. You can have one ofseveral types of tests. ?? Heart attack and stroke risk. At least every 4 to 6 years, you should have your risk for heart attack and stroke assessed. Your doctor uses factors such as your age, blood pressure, cholesterol, andwhether you smoke or have diabetes to show what your risk for a heart attack or stroke is over the next 10 years. ?? Osteoporosis. Talk to your doctor about whether you should have a bone density test to find out whether you have thinning bones. Ask your doctor if you need to take a calcium plus vitamin D supplement. You may be able to get enough calcium and vitamin D through your diet. For women ?? Pap test and pelvic exam. You may no longer need a Pap test. Talk with your doctor about whether to stop or continue to have Pap tests. ?? Breast exam and mammogram. Ask how often you should have a mammogram, which is an X-ray of your breasts. A mammogram can spot breast cancer before it can be felt and when it is easiest to treat. ?? Thyroid disease. Talk to your doctor about whether to have your thyroid checked as part of a regular physical exam. Women have an increased chance of a thyroid problem. For men ?? Prostate exam. Talk to your doctor about whether you should have a blood test (called a PSA test)for prostate cancer. Experts recommend that you discuss the benefits and risks of the test with yourdoctor before you decide whether to have this test. Some experts say that men ages 70 and older no longer need testing. ?? Abdominal aortic aneurysm. Ask your doctor whether you should have a test to check for an aneurysm. You may need a test if you ever smoked or if your parent, brother, sister, or child has had an aneurysm. When should you call for help? Watch closely for changes in your health, and be sure to contact your doctor if you have any problems or symptoms that concern you. Where can you learn more? 1. Go to https://Calendly.[employer] or [employer]ofa/[employer]. 2. Enter K859 in the search box. Current as of: February 22, 2019?Content Version: 12.4 ?? [employer]. Care instructions adapted under license by your healthcare professional. If you have questions abouta medical condition or this instruction, always ask your healthcare professional. [employer] disclaims any warranty or liability for your use of this information. Warts: Care Instructions Your Care Instructions A wart is a harmless skin growth caused by a virus. The virus makes the top layer of skin grow quickly, causing a wart. Warts usually go away on their own in months or years. There are several types ofwarts. Common warts appear most often on the hands, but they may be anywhere on the body. Plantar warts occur on the soles of the feet and may cause pain when you walk. Warts spread easily. You can reinfect yourself by touching the wart and then touching another part of your body. You can infect others by sharing towels, razors, or other personal items. Most warts do not need treatment and go away on their own. But if warts cause pain or spread, your doctor may recommend that you use an hovc-vqk-dmvqsuk treatment. These include salicylic acid or duct tape. Or your doctor may prescribe a stronger medicine to put on warts or may inject them with medicine. The doctor also can remove warts through surgery or by freezing them. Follow-up care is a [place]rael part of your treatment and safety. Be sure to make and go to all appointments, and call your doctor if you are having problems. It's also a good idea to know your test results and keep a list of the medicines you take. How can you care for yourself at home? For common warts ?? Use salicylic acid or duct tape as your doctor directs. You put the medicine or the tape on a wart for several days and then file down the skin on the wart. You use the salicylic acid treatmentfor 2 to 3 months or the tape for 1 to 2 months. ?? If your doctor prescribes medicine to put on warts, use it exactly as directed. Call your doctor if you think you are having a problem with your medicine. For plantar (foot) warts ?? Wear comfortable shoes and socks. Avoid high heels and shoes that put a lot of pressure on your foot. ?? Pad the wart with doughnut-shaped felt or a moleskin patch. You can buy these at a drugstore. Putthe pad around the plantar wart so that it relieves pressure on the wart. You also can place pads orcushions in your shoes to make walking more comfortable. ?? Take an bznq-kqb-gpjxnzg pain medicine, such as acetaminophen (Tylenol), ibuprofen (Advil, Motrin), or naproxen (Aleve). Read and follow all instructions on the label. ?? Do not take two or more pain medicines at the same time unless the doctor told you to. Many pain medicines have acetaminophen, which is Tylenol. Too much acetaminophen (Tylenol) can be harmful. To avoid spreading warts ?? Keep warts covered with a bandage or athletic tape. ?? Do not bite your nails or cuticles. This may spread warts from one finger to another. When should you call for help? Call your doctor now or seek immediate medical care if: ? You have signs of infection, such as: ? Increased pain, swelling, warmth, or redness. ? Red streaks leading from a wart. ? Pus draining from a wart. ? A fever. ??Watch closely for changes in your health, and be sure to contact your doctor if: ? You do not get better as expected. Where can you learn more? 1. Go to https://Calendly.[employer]/healthlibrary or [employer]ofa/Submitnetlibrary. 2. Enter K886 in the search box. Current as of: May 03, 2019?Content Version: 12.4 ?? [employer]. Care instructions adapted under license by your healthcare professional. If you have questions abouta medical condition or this instruction, always ask your healthcare professional. [employer] disclaims any warranty or liability for your use of this information. documented in this encounter Progress Notes Alisha Kimball MD - 01/03/2020 8:00 AM CDT Preventive and Medicare Welcome Subjective/Historical: Loc Velasco is a 64 y.o. old female Chief Complaint Patient presents with ??? ROUTINE HEALTH MAINTENANCE ??? Welcome To Medicare ??? FOLLOW-UP,DIABETES ??? MEDICATION CHECK ??? SKIN LESION left elbow ??? NOISES IN THE EAR ??? ADVANCE DIRECTIVES DISCUSSION pt has one at home Current Concerns: Feeling well. Occasional diarrhea in the middle of the night, otherwise no medication side effects. The diarrhea is not bothersome enough to stop the metformin. Her dyspnea on exertion is better. Otherwise good exercise tolerance. Weight is up, but she and her just joined [employer]. If she checks her blood pressure at home it is normal. BP Readings from Last 5 Encounters: 01/03/20 (!) 127/106 08/09/19 (!) 147/89 03/28/19 107/86 12/12/18 (!) 155/85 10/11/18 (!) 144/80 Has her eye exam scheduled. Would like covid-19 antibody testing. Had symptoms consistent with covid-19 in July when she was in [place]. Wart left elbow. No treatment. Patient accompanied by: unaccompanied Living situation: alone in house-two story Have you had a vision exam in the last 2 years? Yes Do you or anyone else have concerns about your drinking? No Do you feel safe in your current relationship and living arrangement? Yes Mini-Cog Assessment Word Recall: 3 Clock Draw: 2 Total: 5 Additional Assessments Completed: PHQ-2 was administered today with a total score of: 0 Is a Health Care Directive on file? no. Pertinent Positives from Medicare Wellness Form: MEDICARE ANNUAL WELLNESS CONCERNS 01/03/2020 Do you have rugs (not carpet) in your home? Yes Are you able to manage your finances yourself? No The patient's health maintenance, problem list, past medical history, past surgical history, family history, medication list, allergies, and immunization records have been reviewed and updated in the patient record as necessary. High-risk medications being taken: none Observed: BP (!) 127/106 (BP Location: Right Arm, BP Cuff Size: Large) Pulse 93 Temp 97.2 ??F (36.2 ??C) (Tympanic) Resp 16 Ht 5' 3.78 (1.62 m) Wt 187 lb 12.8 oz (85.2 kg) BMI 32.46 kg/m?? Vision Results: Visual Acuity Screening Right eye Left eye Both eyes Without correction: 04/11 04/19 With correction: General: Appears stated age, alert and comfortable HEENT: normal eyes, ears, throat, oropharynx Neck: thyroid normal Lungs: clear to auscultation, no wheezes or rales Breasts: no skin changes, no dominant masses, no axillary lymphadenopathy CV: regular rate and rhythm, normal S1 and S2, without murmur, no carotid bruits Abd: Soft, non-tender, no masses, no hepatomegaly or splenomegaly. : pelvic exam not indicated Skin: typical wart left elbow. After permission was obtained this was frozen X 3 with liquid nitrogen with thawing between treatments. Assessment/Plan: ICD-10-CM 1. Type 2 diabetes mellitus without complication, without long-term current use of insulin (HRC) E11.9 blood glucose (ACCU-CHEK STACEY PLUS) test strip lancets (ACCU-CHEK FASTCLIX) Hgb A1C Microalbumin/Creatinine Ratio Lipid Panel and Direct LDL(If Needed) Diabetic Foot Check (Ep101) Basic Metabolic Panel ALT (SGPT) 2. Welcome to Medicare preventive visit Z00.00 Welcome To Medicare (Ippe) (G0402) 3. Encounter for routine adult health examination without abnormal findings Z00.00 4. Essential hypertension I10 losartan (COZAAR) 50 MG tablet Basic Metabolic Panel 5. Paroxysmal atrial fibrillation (HRC) I48.0 Hemoglobin, Blood 6. Screening for osteoporosis Z13.820 DEXA Bone Density Spine/Hip 7. Immunity status testing Z01.84 SARS-CoV-2 IgG Antibody (Inhouse) 8. Common wart B07.8 86521 Destruc Benign Lesions; Up 14 Counseling and education provided today includes proper nutrition and health habits, fall prevention, and for those items ordered above. Plan for future preventive services in Patient Instructions. Patient also counseled on: -protection from UV light Vit D and calcium supplements Medication reduction opportunity: None 1. Hypertension. Not at goal here today. She will work on weight loss and monitor her blood pressure. 2. Controlled type 2 diabetes. Labs today. 3. Wart. Treated as above. Routine wound care and follow up prn problems with healing or other concerns. She will follow up in 2-3 weeks for re-treatment as needed. Alisha Kimball MD 01/03/2020, 7:47 AM documented in this encounter Plan of Treatment Not on filedocumented as of this encounter Results DEXA Bone Density Spine/Hip (02/22/2020 9:18 AM CDT) Anatomical Region Laterality Modality Lower Extremity, Spine, Hip, L-Spine Oth er Specimen (Source) Anatomical Location Collection Method / Collectio n Time Received Time / Laterality Volume Narrative 02/22/2020 12:58 PM CDT Indication:Screening Formula Room Worker and Model of Instrument: meevl Demographics Age: 65 y.o. Gender: female Height :5' 3.6 Weight (lbs):186.2lbs Race: Medical/Surgical History Menstrual periods:None Age of menopause:46 History of hip fractures in parents:No History of previous fractures occurring spontaneously, or a fracture as a result of a fall from a standing height or less:No If yes, indicated area: Glucocorticoids use:No Currently taking medication:None Have or had listed medical conditions:No ne Dietary/Habit Alcohol 3units or more per day (on QuikCycle):No Currently smoking:No Other pertinent history: Dual-X-ray Absorptiometry (DXA Results) AP spine (L1-L4) Left hip (neck) Left ? ?hip (total) ?? BMD (gm/cm2) 1.229 1.069 1.046 ? T score 1.7 2.0 0.9 ? Z score 3.5 3.5 2.1 ?? %change from previous scan dated: ??05/05 07/14 8.1% ??-11.6% ?? FRAX Score: 10 YR Risk Hip Fracture % ?? Typical threshold to start therapy in pa tients is a 10-year risk of hip fracture >3%. Clinician? s judgment and/or patient preferences may indicate treatment for people with 10-year fractu re probabilities above or below these levels. 10 YR Risk Major Osteoporotic Fracture % ?? Typical threshold to start therapy in pa tients is a 10-year risk of any osteoporotic fracture >20%.Clinicians ju dgment and/or patient preferences may indicate treatment for people with 1 0-year fracture probabilities above or below these levels. Comments: *WHO criteria are for postmenopausal [place] women. *Degenerative joint disease, compression fractures, or calcification artifacts may falsely increase bone mine ral density. Diagnosis: *No evidence of osteopenia/osteoporosis. Recommendations:. *Recommend lifestyle modifications, incl uding proper calcium/vitamin d intake, weight bearing exercises, and fa ll prevention. *Consider follow up DXA ??in 3-5 years, unless clinical circumstances change. The changes in bone mineral density at the spine and hip ??were statistically significant and clinically important. WHO DEFINITIONS: Normal BMD: T-score ? -1.0 Osteopenia: T-score between -1.0 and -2. 5 Osteoporosis: T-score ? -2.5 FRAX Score : ??The FRAX?? algorithms giv e the 10-year probability of fracture. The output is a 10-year probab ility of hip fracture and the 10-year probability of a major osteoporo tic fracture (clinical spine, forearm, hip or shoulder fracture). ?? The FRAX score takes into account the dayron ne density, but also age, gender, weight, height, previous fracture, paren benny hip fracture, smoking status, glucocorticoid intake, history of RA, se condary osteoporosis, and high alcohol intake in determining fracture r isk in patients with osteopenia and osteoporosis. FRAX and Fracture Risk Categories in [facility] [place] of major osteoporotic fracture risk (clinical spine, forearm, hip, or s h[place]): < 10% ? = ? low fracture risk ? 10% and <15% ?= ? mildly increased fracture risk ? 15% and <20% ?= ? moderately increased fracture risk ? 20% and <30% ?= ?high fracture risk ? 30% ? = ? very high fracture risk A clinician may consider FDA-approved me dical therapies in postmenopausal women and men aged 50 years and older, i f one or more of the following is present (clinical correlation required a nd therapy may not always be indicated): 1. ??The patient has a hip or vertebral (clinical or morphometric) fracture. 2. ??T-score ? -2.5 at the femoral neck, hip, or spine after appropriate evaluation to exclude secondary causes. 3. ??Low bone mass (T-score between -1.0 and -2.5 at the femoral neck, hip or spine) and a 10-year probability of a hip fracture ? 3% or a 10-year probability of a major osteoporosis-rela rafiq fracture ? 20% based on the FRAX scores. 4. ??Clinicians judgment and/or patient preferences may result in a decision to patients with 10-year fractu re probabilities above or below these levels. Alisha Kimball MD RAD DEXA SARS-CoV-2 IgG Antibody (Inhouse) (01/03/2020 9:17 AM CDT) [facility] Method Time Signature [id number] Negative Negative 01/03/2020 [facility] G Antibody 3:53 PM CDT LABORATORY Interp SARS CoV-2 0.01 01/03/2020 [facility] IgG Index 3:53 PM CDT LABORATORY SARS The magnitude of 01/03/2020 [facility] CoV-2-IgG the reported 3:53 PM CDT LABORATORY Index Index is not Comment indicative of the amount of antibody present in the patient sample. SARS The SARS-CoV-2 01/03/2020 [facility] CoV-2-IgG IgG assay is 3:53 PM CDT LABORATORY Comment 1 only for use under the Food and Drug Administration's Emergency Use Authorization (EUA). SARS Negative Results 01/03/2020 [facility] CoV-2-IgG do not rule out 3:53 PM CDT LABORATORY Comment 2 SARS-CoV-2 infection, particularly in those who have been in contact with the virus. Follow-up with a molecular diagnostic test should be considered to R/O infection. SARS Results from 01/03/2020 [facility] CoV-2-IgG antibody testing 3:53 PM CDT LABORATORY Comment 3 should not be used as the sole basis to diagnose or exclude SARS-CoV-2 infection or to inform infection status. Specimen Anatomical Collection Method / Collection Time Recei dawn Time (Source) Location / Volume Laterality Blood Venipuncture / 01/03/2020 9:17 01/03/2020 9:17 Unknown AM CDT AM CDT Alisha Kimball MD LAB_1 Performing Organization Address City/State/ZIP Code Phon e Number [facility] [address] [place] [address] Hemoglobin, Blood (01/03/2020 9:17 AM CDT) athologist [facility] [place] Hemoglobin 13.6 12.0 - 15.5 01/03/2020 [facility] g/dL 9:20 AM CDT LABORATORY Specimen Anatomical Collection Method / Collection Time Recei dawn Time (Source) Location / Volume Laterality Blood Venipuncture / 01/03/2020 9:17 01/03/2020 9:17 Unknown AM CDT AM CDT Alisha Kimball MD LAB_1 Performing Organization Address City/[facility]/ZIP Code Phon e Number [facility] [address] [place] [address] (ABNORMAL) ALT (SGPT) (01/03/2020 9:17 AM CDT) athologist Signature ALT (SGPT) 56 (H) 0 - 55 U/L 01/03/2020 [facility] 3:07 PM CDT CENTRAL LAB Specimen Anatomical Collection Method / Collection Time Recei dawn Time (Source) Location / Volume Laterality Blood Venipuncture / 01/03/2020 9:17 01/03/2020 9:17 Unknown AM CDT AM CDT Alisha Kimball MD LAB_1 Performing Organization Address City/[facility]/ZIP Code Phon e Number [facility] CENTRAL LAB [address] [address] (ABNORMAL) Basic Metabolic Panel (01/03/2020 9:17 AM CDT) [facility] Method Time Signature Sodium 140 136 - 145 01/03/2020 [facility] mmol/L 3:07 PM CDT CENTRAL LAB Potassium 4.8 3.5 - 5.1 01/03/2020 [facility] mmol/L 3:07 PM CDT CENTRAL LAB Chloride 108 98 - 109 01/03/2020 [facility] mmol/L 3:07 PM CDT CENTRAL LAB CO2 21 20 - 29 01/03/2020 [facility] mmol/L 3:07 PM CDT CENTRAL LAB Anion Gap 11 7 - 16 01/03/2020 [facility] mmol/L 3:07 PM CDT CENTRAL LAB Calcium 9.4 8.4 - 01/03/2020 [facility] 10.4 3:07 PM CDT CENTRAL LAB mg/dL BUN 18 7 - 26 01/03/2020 [facility] mg/dL 3:07 PM CDT CENTRAL LAB Creatinine 0.90 0.55 - 01/03/2020 [facility] 1.02 3:07 PM CDT CENTRAL LAB mg/dL GFR, Estimated >60 >60 01/03/2020 [facility] mL/min/1. 3:07 PM CDT CENTRAL LAB 73m2 Glucose 132 (H) 70 - 100 01/03/2020 [facility] mg/dL 3:07 PM CDT CENTRAL LAB Comment: The given reference range is fo r the fasting state. Non-fasting reference range for glucose is 70 - 180 mg/dL. Hours Fasting 12 01/03/2020 3:07 PM CDT [facility] Specimen Anatomical Collection Method / Collection Time Recei dawn Time (Source) Location / Volume Laterality Blood Venipuncture / 01/03/2020 9:17 01/03/2020 9:17 Unknown AM CDT AM CDT Alisha Kimball MD LAB_1 Performing Organization Address City/State/ZIP Code Phon e Number [facility] [address] [address] [facility] [address] [place], [place] [address] [phone] (ABNORMAL) Lipid Panel and Direct LDL(If Needed) (01/03/2020 9:17 AM CDT) [facility] Method Time Signature Cholesterol 157 0 - 199 01/03/2020 [facility] mg/dL 3:07 PM CDT CENTRAL LAB Triglyceride 157 (H) <=149 01/03/2020 [facility] mg/dL 3:07 PM CDT CENTRAL LAB HDL Cholesterol 46 >=40 01/03/2020 [facility] mg/dL 3:07 PM CDT CENTRAL LAB LDL, Calculated 80 <130 01/03/2020 [facility] mg/dL 3:07 PM CDT CENTRAL LAB Non HDL Chol, 111 mg/dL 01/03/2020 [facility] Calculated 3:07 PM CDT CENTRAL LAB Cholesterol/HDL 3.4 01/03/2020 [facility] Ratio 3:07 PM CDT CENTRAL LAB Hours Fasting 12 01/03/2020 [facility] 3:07 PM CDT LABORATORY Specimen Anatomical Collection Method / Collection Time Recei dawn Time (Source) Location / Volume Laterality Blood Venipuncture / 01/03/2020 9:17 01/03/2020 9:17 Unknown AM CDT AM CDT Alisha Kimball MD LAB_1 Performing Organization Address City/[facility] Phon e Number [facility] C[facility]TRAL LAB [address] [address] [facility] [address] [place] [address] (ABNORMAL) Hgb A1C (01/03/2020 9:17 AM CDT) [facility] gist Method Time Signature Hemoglobin A1C 7.6 (H) <=5.6 % 01/03/2020 [facility] 1:12 PM CDT CENTRAL LAB Specimen Anatomical Collection Method / Collection Time Recei dawn Time (Source) Location / Volume Laterality Blood Venipuncture / 01/03/2020 9:17 01/03/2020 9:17 Unknown AM CDT AM CDT Narrative [facility] C[facility]AL [facility] - 01/03/2020 1:12 PM CDT For patients not previously diagnosed with diabetes: 5.7-6.4%: Increased risk for diabetes 6.5% and greater: Diagnostic for diabete s For patients diagnosed with diabetes: <8.0%: Goal of therapy for ages 18-75 Clinicians may recommend a higher or low er goal for specific individuals. Alisha Kimball MD LAB_1 Performing Organization Address City/[facility] Phon e Number [facility] CENTRAL LAB [address] [place] [address] documented in this encounter Visit Diagnoses Diagnosis Welcome to Medicare preventive visit - P rimary Encounter for routine adult health exami nation without abnormal findings Type 2 diabetes mellitus without complic ation, without long-term current use of insulin (HRC) Essential hypertension (HRC) Unspecified essential hypertension Paroxysmal atrial fibrillation (HRC) Atrial fibrillation Screening for osteoporosis Special screening for osteoporosis Immunity status testing Antibody response examination Common wart Other specified viral warts Screening for osteoporosis Special screening for osteoporosis documented in this encounter Care Teams Retort Feeder Ground Bone Relationship Specialty Start Date End Date Alisha Kimball MD PCP - General 07/08/05 [address] [place] [address] documented as of this encounter
--- OUTSIDE RECORDS SUMMARY | 2022-04-07 07:21 | XMS_ITS | Encounter Summary ---
:1955 Author Organization [facility] Address [address] [place] [address] Care Team Providers Name Role Phone Alisha Kimball MD Primary Care Provider Reason for Visit Reason Comments HYPERTENSION, ESSENTIAL Takes BP medication everyday in the morning and at night. Losartan was increased on Fr iday. No side affects from medications other than diarr hea in the middle of night and has felt squeezing on th e left side of her head. She had this last night. Atrial Fibrillation Wondering if there is anothe r medication instead of eliquis. Its very expensive. Health Maintanence Declined Encounter Details Date Type Department Care Team Description 04/16/2020 Office Visit [facility] Alisha Kimball, Kathi painting hypertension; Practice Paroxysmal atrial fibrillation (HRC) [address] [place] [address] [place] [address] [phone] Social History Tobacco Use Types Packs/Day Years Used Date Smoking Tobacco: Never Smokeless Tobacco: Never Alcohol Use Standard Drinks/Week Comments No 0 (1 standard drink = 0.6 oz pure alcoho l) Sex Assigned at Date Recorded Not on file documented as of this encounter Last Filed Vital Signs Vital Sign Reading Time Taken Comments Blood Pressure 144/115 04/16/2020 11:54 AM CDT Pulse 97 04/16/2020 11:54 AM CDT Temperature 36.6 ??C (97.8 ??F) 04/16/2020 11:54 AM CDT Respiratory Rate 20 04/16/2020 11:54 AM CDT Oxygen Saturation 98% 04/16/2020 11:54 AM CDT Inhaled Oxygen Concentration - - Weight 83 kg (183 lb) 04/16/2020 11:54 AM CDT Height - - Body Mass Index 31.63 01/03/2020 8:07 AM CDT documented in this encounter Patient Instructions Patient InstructionsAlisha Kimball MD - 04/16/2020 11:40 AM CDT Images from the original note were not included. For blood thinner: Let me know when you have about 2 weeks of the Eliquis left and we can transition to the warfarin. For blood pressure: Go abck to the losartan 50 mg daily. Keep taking the atenolol. ADD chlorthalidone 25 mg daily in the morning. Call with problems. Please check your blood pressure a few times at home and let me know if it is usually higher than 139/89 (either number). Remember to sit quietly for 5 minutes before you check your blood pressure. Taking Warfarin Safely (Short-Term): After Your Visit Your Care Instructions Warfarin is a medicine that you take to prevent blood clots. It is often called a blood thinner. Doctors give warfarin (such as Coumadin) to reduce the risk of blood clots. You may be at risk for bloodclots if you have certain kinds of surgery or some other health problems. Your doctor will tell you when you can stop taking warfarin. Warfarin slows the amount of time it takes for your blood to clot. It can cause bleeding problems. Even if you've been taking warfarin for a while, it's important to know how to take it safely. Foods and other medicines can affect the way warfarin works. Some can make warfarin work too well. This can cause bleeding problems. And some can make it work poorly, so that it does not prevent blood clots very well. You will need regular blood tests to check how long it takes for your blood to form a clot. This test is called a PT or prothrombin time test. The result of the test is called an INR level. Depending on the test results, your doctor or anticoagulation clinic may adjust your dose of warfarin. Follow-up care is a israel part of your treatment and safety. Be sure to make and go to all appointments, and call your doctor if you are having problems. It's also a good idea to know your test results and keep a list of the medicines you take. How can you care for yourself at home? Take warfarin safely ?? Take your warfarin at the same time each day. ?? If you miss a dose of warfarin, don't take an extra dose to make up for it. Your doctor can tell you exactly what to do so you don't take too much or too little. ?? Wear medical alert jewelry that lets others know that you take warfarin. You can buy this at [facility]. ?? Don't take warfarin if you are or planning to get . Talk to your doctor about how you can prevent getting while you are taking it. ?? Don't change your dose or stop taking warfarin unless your doctor tells you to. Effects of medicines and food on warfarin ?? Don't start or stop taking any medicines, vitamins, or natural remedies unless you first talk to your doctor. Many medicines can affect how warfarin works. These include aspirin and other pain relievers, bccz-hgi-hfemmgo medicines, multivitamins, dietary supplements, and herbal products. ?? Tell all of your doctors and pharmacists that you take warfarin. Some prescription medicines can affect how warfarin works. ?? Keep the amount of vitamin K in your diet about the same from day to day. Do not suddenly eat a lot more or a lot less food that is rich in vitamin K than you usually do. Vitamin K affects how warfarin works and how your blood clots. Talk with your doctor before making big changes in your diet. Vitamin K is in many foods, such as: ?? Leafy greens, such as kale, cabbage, spinach, Rwandan chard, and lettuce. ?? Canola and soybean oils. ?? Green vegetables, such as asparagus, broccoli, and [place] sprouts. ?? Vegetable drinks, green tea leaves, and some dietary supplement drinks. ?? Avoid cranberry juice and other cranberry products. They can increase the effects of warfarin. ?? Limit your use of alcohol. Avoid bleeding by preventing falls and injuries ?? Wear slippers or shoes with nonskid soles. ?? Remove throw rugs and clutter. ?? Rearrange furniture and electrical cords to keep them out of walking paths. ?? Keep stairways, porches, and outside walkways well lit. Use night-lights in hallways and bathrooms. ?? Be extra careful when you work with sharp tools or knives. When should you call for help? Call 911 anytime you think you may need emergency care. For example, call if: ?? You have a sudden, severe headache that is different from past headaches. Call your doctor now or seek immediate medical care if: ?? You have any abnormal bleeding, such as: ?? Nosebleeds. ?? Vaginal bleeding that is different (heavier, more frequent, at a different time of the month) than what you are used to. ?? Bloody or black stools, or rectal bleeding. ?? Bloody or pink urine. Watch closely for changes in your health, and be sure to contact your doctor if you have any problems. Where can you learn more? Go to [employer] and enter N172 in the search box. Current as of: September 13, 2013 Content Version: 10.1 ?? 5791-0917 [employer]. documented in this encounter Progress Notes Alisha Kimball MD - 04/16/2020 11:40 AM CDT S: Loc Velasco is a 65 y.o. old female seen for a blood pressure check. When I saw her 01/03/2020 her blood pressure was elevated (127/106). At that time, she reported that she was checking her bloodpressure at home and normal. She was seen for a blood pressure check on 04/11/2020 and 167/106. Her losartan was increased from 50 to 100 mg daily. No side effects. Has been checking her blood pressure at home and still high. This morning it was 160/120. Recalls swelling with amlodipine. Had lightheadedness and passed out with HCTZ. Still taking the atenolol for rate control for her atrial fibrillation. Also, the Eliquis is too expensive. Would like to see if there is something else she can take. O: BP (!) 144/115 (BP Location: Right Arm, BP Cuff Size: Large) Pulse 97 Temp 97.8 ??F (36.6 ??C) (Tympanic) Resp 20 Wt 183 lb (83 kg) LMP (Exact Date) SpO2 98% No BMI 31.63 kg/m?? . CV: irregularly irregular rhythm with a normal rate, normal S1 and S2. No murmur, rub, or gallop. A/P: 1. Hypertension. Not at goal. Discussed. Since increasing the losartan did not lower her blood pressure, will go back to 50 mg daily. See the patient instructions. 2. Atrial fibrillation with increased stroke risk. See the patient instructions. Alisha Kimball MD documented in this encounter Plan of Treatment Not on filedocumented as of this encounter Visit Diagnoses Diagnosis Essential hypertension (HRC) Unspecified essential hypertension Paroxysmal atrial fibrillation (HRC) Atrial fibrillation documented in this encounter Care Teams Validation Scientist Relationship Specialty Start Date End Date Alisha Kimball MD PCP - General 07/08/05 [address] [place] [address] documented as of this encounter
--- OUTSIDE RECORDS SUMMARY | 2022-04-07 07:21 | XMS_ITS | Encounter Summary ---
:1955 Author [facility] Address [address] [place] [address] Care Team Providers Name Role Phone Alisha Kimball MD Primary Care Provider Reason for Visit Reason Onset Date Comments Refill 01/09/2020 Encounter Details Date Type Department Care Team Description 01/09/[address] [facility] Alisha Kimball MD Refill [address] [facility]. [address] [place] [address] [place], [place] [phone] (Wo rk) Social History Tobacco Use Types Packs/Day Years Used Date Smoking Tobacco: Never Smokeless Tobacco: Never Alcohol Use Standard Drinks/Week Comments No 0 (1 standard drink = 0.6 oz pure alcoho l) Sex Assigned at Date Recorded Not on file documented as of this encounter Nursing Notes Alisha Kimball MD - 01/09/2020 12:43 PM CDT OK. See orders. Alisha Kimball MD Timo Ngo - 01/09/2020 12:03 PM CDT Accu Chek Edilma Plus Test Strips please change to test once daily required by insurance documented in this encounter Plan of Treatment Not on filedocumented as of this encounter Visit Diagnoses Diagnosis Type 2 diabetes mellitus without complic ation, without long-term current use of insulin (HRC) documented in this encounter Care Teams Clam Grower Relationship Specialty Start Date End Date Alisha Kimball MD PCP - General 07/08/05 [address] [place] [address] documented as of this encounter
--- OUTSIDE RECORDS SUMMARY | 2022-04-07 07:21 | XMS_ITS | Encounter Summary ---
:1955 Author Organization [facility] Address [address] [place] [address] Care Team Providers Name Role Phone Alisha Kimball MD Primary Care Provider Encounter Details Date Type Department Care Team Description 01/03/2020 Lab Visit [facility] Type [address] [address] [facility] without complication, [place], [place] [address] without long-term current [phone] use of insulin (HRC) Social History Tobacco Use Types Packs/Day Years Used Date Smoking Tobacco: Never Smokeless Tobacco: Never Alcohol Use Standard Drinks/Week Comments No 0 (1 standard drink = 0.6 oz pure alcoho l) Sex Assigned at Date Recorded Not on file documented as of this encounter Plan of Treatment Not on filedocumented as of this encounter Procedures Procedure Name Priority Date/Time Associated Diagnosis Comme nts ALBUMIN/CREAT RATIO Routine 01/03/2020 11:20 AM Type 2 diabete s Results for this CDT mellitus without procedure a re in complication, the results without long-term section. current use of insulin (HRC) documented in this encounter Results Microalb/Creat Ratio (01/03/2020 11:20 AM CDT) [facility] Method Time Signature Albumin, 28.6 mg/L 01/03/2020 [employer] Urine, Random 4:36 PM CDT CENTRAL LAB Creatinine, 155 >20 mg/dL 01/03/2020 [employer] Urine, Random 4:36 PM CDT CENTRAL LAB Albumin/Creati 18 <30 mg/g 01/03/2020 [employer] nine Ratio, 4:36 PM CDT CENTRAL LAB Urine, Random Specimen Anatomical Collection Method Collection Time Receive d Time (Source) Location / / Volume Laterality Urine Non-blood 01/03/2020 11:20 01/03/2020 Collection / AM CDT 11:34 AM CDT Unknown Alisha Kimball MD LAB_1 Performing Organization Address City/State/ZIP Code Phon e Number [facility] [address] [address] documented in this encounter Visit Diagnoses Diagnosis Type 2 diabetes mellitus without complic ation, without long-term current use of insulin (HRC) documented in this encounter Care Teams Optical Engineer Relationship Specialty Start Date End Date Alisha Kimball MD PCP - General 07/08/05 [address] [place] [address] documented as of this encounter
--- OUTSIDE RECORDS SUMMARY | 2022-04-07 07:21 | XMS_ITS | Encounter Summary ---
:1955 Author Organization [employer] Address [address] [place] [address] Care Team Providers Name Role Phone Alisha Kimball MD Primary Care Provider Reason for Visit Reason Comments BP CHECK,NURSE IMMUNIZATIONS Encounter Details Date Type Department Care Team Description 04/11/2020 Nursing Visit [facility] ial hypertension; Department Encounter for immunization [address] [place], [place] [address] Social History Tobacco Use Types Packs/Day Years Used Date Smoking Tobacco: Never Smokeless Tobacco: Never Alcohol Use Standard Drinks/Week Comments No 0 (1 standard drink = 0.6 oz pure alcoho l) Sex Assigned at Date Recorded Not on file documented as of this encounter Last Filed Vital Signs Vital Sign Reading Time Taken Comments Blood Pressure 167/136 04/11/2020 9:09 AM CDT Pulse 102 04/11/2020 9:09 AM CDT Temperature - - Respiratory Rate - - Oxygen Saturation - - Inhaled Oxygen Concentration - - Weight - - Height - - Body Mass Index - - documented in this encounter Patient Instructions Patient InstructionsLyn Irvin LPN - 04/11/2020 9:10 AM CDT Images from the original note were not included. Start taking 2 of your 50 mg losartan and follow up with you primary care provider in 1-2 weeks. If you start to have and symptoms go to ED or call 911. High Blood Pressure: Care Instructions Overview It's normal for blood pressure to go up and down throughout the day. But if it stays up, you have high blood pressure. Another name for high blood pressure is hypertension. Despite what a lot of people think, high blood pressure usually doesn't cause headaches or make you feel dizzy or lightheaded. It usually has no symptoms. But it does increase your risk of stroke, heart attack, and other problems. You and your doctor will talk about your risks of these problems based on your blood pressure. Your doctor will give you a goal for your blood pressure. Your goal will be based on your health andyour age. Lifestyle changes, such as eating healthy and being active, are always important to help lower bloodpressure. You might also take medicine to reach your blood pressure goal. Follow-up care is a israel part of your treatment and safety. Be sure to make and go to all appointments, and call your doctor if you are having problems. It's also a good idea to know your test results and keep a list of the medicines you take. How can you care for yourself at home? Medical treatment ?? If you stop taking your medicine, your blood pressure will go back up. You may take one or more types of medicine to lower your blood pressure. Be safe with medicines. Take your medicine exactly as prescribed. Call your doctor if you think you are having a problem with your medicine. ?? Talk to your doctor before you start taking aspirin every day. Aspirin can help certain people lower their risk of a heart attack or stroke. But taking aspirin isn't right for everyone, because it can cause serious bleeding. ?? See your doctor regularly. You may need to see the doctor more often at first or until your bloodpressure comes down. ?? If you are taking blood pressure medicine, talk to your doctor before you take decongestants or anti-inflammatory medicine, such as ibuprofen. Some of these medicines can raise blood pressure. ?? Learn how to check your blood pressure at home. Lifestyle changes ?? Stay at a healthy weight. This is especially important if you put on weight around the waist. Losing even 10 pounds can help you lower your blood pressure. ?? If your doctor recommends it, get more exercise. Walking is a good choice. Bit by bit, increase the amount you walk every day. Try for at least 30 minutes on most days of the week. You also may wantto swim, bike, or do other activities. ?? Avoid or limit alcohol. Talk to your doctor about whether you can drink any alcohol. ?? Try to limit how much sodium you eat to less than 2,300 milligrams (mg) a day. Your doctor may ask you to try to eat less than 1,500 mg a day. ?? Eat plenty of fruits (such as bananas and oranges), vegetables, legumes, whole grains, and low-fat dairy products. ?? Lower the amount of saturated fat in your diet. Saturated fat is found in animal products such asmilk, cheese, and meat. Limiting these foods may help you lose weight and also lower your risk for heart disease. ?? Do not smoke. Smoking increases your risk for heart attack and stroke. If you need help quitting,talk to your doctor about stop-smoking programs and medicines. These can increase your chances of quitting for good. When should you call for help? Call 911 anytime you think you may need emergency care. This may mean having symptoms that suggest that your blood pressure is causing a serious heart or blood vessel problem. Your blood pressure may be over 180/120. ??For example, call 911 if: ? You have symptoms of a heart attack. These may include: ? Chest pain or pressure, or a strange feeling in the chest. ? Sweating. ? Shortness of breath. ? Nausea or vomiting. ? Pain, pressure, or a strange feeling in the back, neck, jaw, or upper belly or in one or both shoulders or arms. ? Lightheadedness or sudden weakness. ? A fast or irregular heartbeat. ? You have symptoms of a stroke. These may include: ? Sudden numbness, tingling, weakness, or loss of movement in your face, arm, or leg, especially on only one side of your body. ? Sudden vision changes. ? Sudden trouble speaking. ? Sudden confusion or trouble understanding simple statements. ? Sudden problems with walking or balance. ? A sudden, severe headache that is different from past headaches. ? You have severe back or belly pain. ?? Do not wait until your blood pressure comes down on its own. Get help right away. ?? Call your doctor now or seek immediate care if: ? Your blood pressure is much higher than normal (such as 180/120 or higher), but you don't havesymptoms. ? You think high blood pressure is causing symptoms, such as: ? Severe headache. ? Blurry vision. ??Watch closely for changes in your health, and be sure to contact your doctor if: ? Your blood pressure measures higher than your doctor recommends at least 2 times. That means the top number is higher or the bottom number is higher, or both. ? You think you may be having side effects from your blood pressure medicine. Where can you learn more? 1. Go to https://EarDish/OKWaverary or Couchsurfing/CookstrraCitiLogics. 2. Enter X567 in the search box. Current as of: June 18, 2019?Content Version: 12.4 ?? [id number] [employer]. Care instructions adapted under license by your healthcare professional. If you have questions abouta medical condition or this instruction, always ask your healthcare professional. [employer] disclaims any warranty or liability for your use of this information. documented in this encounter Progress Notes Lyn Irvin LPN - 04/11/2020 9:10 AM CDT Sole Velasco here today for follow up blood pressure check. Medications were reviewed: currently prescribed and taking blood pressure medication(s) O BP (!) 167/136 (BP Location: Right Arm, BP Cuff Size: Regular) Pulse (!) 102 Blood pressures recorded: BP Readings from Last 1 Encounters: 04/11/20 0909 (!) 167/136 04/11/20 0854 (!) 164/130 Pt reports no chest pain, SOB, or any other cardiac symptoms. She reports she has not missed any does of BP medications. A Blood pressure above goal. If patient is experiencing emergent symptoms and/or blood pressure valuesare greater than 210/120, emergently triage the patient. Call an RN stat if the nursing staff is notavailable or not comfortable with emergent triage protocol. Is the RN/MTM available and the patient is willing to wait? Yes. P: Patient will be seen by Clinician today for elevated blood pressure. Per Marcy LOCO pt is to starttaking 2- of her 50 mg tabs of losartan and follow up with pcp in 1-2 weeks Lyn Irvin LPN 04/11/2020, 11:08 AM Loc Velasco here for injection(s). ordered per standing order . See orders. Contraindications and side effects discussed with patient patient verbalized understanding of risks, possible side effects, and benefits of the injection and gave permission to administer the stated immunization(s). No precautions or contraindications noted. Tolerated injection well. See immunization/injection report for administration documentation. Lyn Irvin LPN Lali Dietrich PA-C - 04/11/2020 9:10 AM CDT Patient reportedly denies chest pain or SOB. In for routine BP check. Recommended increasing losartan from 50mg to 100mg daily. Follow up with PCP in 1-2 weeks Lali Dietrich PA-C documented in this encounter Plan of Treatment Not on filedocumented as of this encounter Visit Diagnoses Diagnosis Essential hypertension (HRC) Unspecified essential hypertension Encounter for immunization Need for other specified prophylactic va ccination against single bacterial disease documented in this encounter Care Teams Dye Lab Technician Relationship Specialty Start Date End Date Alisha Kimball MD PCP - General 07/08/05 [address] [place] [address] documented as of this encounter
--- OUTSIDE RECORDS SUMMARY | 2022-04-07 07:21 | XMS_ITS | Encounter Summary ---
:1955 Author Organization [email or web address] Address [address] [place] [address] Care Team Providers Name Role Phone Alisha Kimball MD Primary Care Provider Reason for Visit Reason Comments BLOOD PRESSURE CHECK Encounter Details Date Type Department Care Team Description 05/31/2020 Telephone [facility] Alisha Kimball MD BLOOD PRESSURE CHECK Practice [address] [place] [address] [place], [place] [id number] [phone] Social History Tobacco Use Types Packs/Day Years Used Date Smoking Tobacco: Never Smokeless Tobacco: Never Alcohol Use Standard Drinks/Week Comments No 0 (1 standard drink = 0.6 oz pure alcoho l) Sex Assigned at Date Recorded Not on file documented as of this encounter Nursing Notes Weekly, Tesha Mcmahon LPN - 06/07/2020 12:22 PM CST Spoke with patient, relayed message below from Dr. Kimabll. Patient denies having any light-headedness when she stands. Patient will decrease Losartan to 1/2 tab and will call back with BP readings. Informed patient if she has light-headedness, dizziness, vision changes, or headache to call or go to ER. Patient verbalized understanding. Tesha Rojas LPN 06/07/2020, 12:25 PM Nga Cuello LPN - 06/07/2020 10:00 AM CST Left message for patient to call back regarding Dr Kimball questions. Please call back at [phone] and ask for Nga Kimball's nurse. Nga Ballard LPN TRUCTION MANAGEMENT ASSISTANT Reina Velasquez LPN - 05/31/2020 10:58 AM CST Roofer Helper Vinyl [employer]ating left a message for patient to return call to clinic. Reina Velasquez LPN TRUCTION MANAGEMENT ASSISTANT Alisha Kimball MD - 05/31/2020 9:38 AM CST Some of the readings are pretty low. Does she have lightheadedness when she stands up? Does she wantto decrease her losartan to 1/2 tab daily and monitor her blood pressure? Thanks! Alisha Kimball MD Vero Ramirez - 05/31/2020 8:59 AM CST Miscellaneous Questions & FYI's [Bag Sealer: If this call is after 3 p.m., communicate to patient: If we are not able to get back to you by the end of the day and your symptoms worsen please contact the Careline at [phone] at .] Is this a question/concern or an FYI? Question Is this a symptom? No What is your question or concern? Patient is following up with blood pressure readings and chlorthalidon medication, patient states medication is working, patient states she feels fine here are some of her blood pressure readings she started on 05/25/2020 114/84, 104/68,100/85, 94/78, 97/83, patient states no need to return call. Have you recently been seen for this? no Is it okay to leave a detailed message on your voicemail? Yes Vero Robin If unable to handle, please route to None OR Care Team Pool [DIRECTOR LONG TERM CARE/RMA/LPNs: please call the patient to gather additional details, as needed.] TRUCTION MANAGEMENT ASSISTANT documented in this encounter Plan of Treatment Not on filedocumented as of this encounter Visit Diagnoses Not on filedocumented in this encounter Care Teams Cardiac Technologist Relationship Specialty Start Date End Date Alisha Kimball MD PCP - General 07/08/05 [address] [place] [address] documented as of this encounter
--- OUTSIDE RECORDS SUMMARY | 2022-04-07 07:21 | XMS_ITS | Encounter Summary ---
:1955 Author Organization [employer] Address [address], [place] [address] Care Team Providers Name Role Phone Alisha Kimball MD Primary Care Provider Reason for Visit Reason Comments Dental Hygiene none Encounter Details Date Type Department Care Team Description 02/07/2021 Office Visit [facility] Gen Gonzalez [facility] [address] [place] [address] Dental Hygiene (none) Dentistry [place], Exam [address] [place] [address] Social History Tobacco Use Types Packs/Day Years Used Date Smoking Tobacco: Never Smokeless Tobacco: Never Alcohol Use Standard Drinks/Week Comments No 0 (1 standard drink = 0.6 oz pure alcoho l) Sex Assigned at Date Recorded Not on file documented as of this encounter Last Filed Vital Signs Vital Sign Reading Time Taken Comments Blood Pressure - - Pulse 61 02/07/2021 9:11 AM CDT Temperature - - Respiratory Rate - - Oxygen Saturation - - Inhaled Oxygen Concentration - - Weight - - Height - - Body Mass Index - - documented in this encounter Patient Instructions Patient InstructionsAddie Gonzalez RDH - 02/07/2021 9:00 AM CDT Your next hygiene recall is due 06/09/2021 YOUR PERSONAL DENTAL RISK REPORT CARIES (TOOTH [...] treatment. No recent progression of gum disease. Diagnosed with either Type I or Type II diabetes. Intermediate levels of plaque. How to Reduce [...] encounter Progress Notes Addie Gonzalez RDH - 02/07/2021 9:00 AM CDT HYGIENE PROPHY NOTE (NO EXAM) [...] agreement with Josue Kerns DDS (License #: [id number]) CHART REVIEW: Reviewed with patient: Medical history, Dental history, Problem list, Periodontal charting and Radiographs PRESENTATION: Oral Hygiene: Good Plaque: Localized, light supra-gingival , interproximal and posterior buccal Calculus: Localized, light supra-gingival , sub-gingival and mandibular anterior Stain: None Bleeding: Localized light Gingival tissue: Normal Mucogingival concerns: Present recession ACTIVITIES: Hand scale, Essential selective polishing and Flossed all contacts PATIENT EDUCATION: Caries risk, Periodontal risk, Etiology of periodontal disease, OHI, Demonstratedflossing, Oral care adjuncts and Fluoride rinse Recommended soft picks to aid in interproximal plaque removal. TREATMENT REVIEW AND FOLLOW-UP: Discussed the Prognosis and Treatment options with the patient. All questions answered and informed consent was obtained. Recommended Recall Interval: Examination: 8 months : Recall prophy: 4 months Planned Recall Interval: Examination: 8 months : Recall prophy: 4 months Next Planned Hygiene Visit: Hygiene Prophy with exam Addie Gonzalez RDH 02/07/2021, 9:42 AM --End of Note-- documented in this encounter Plan of Treatment Not on filedocumented as of this encounter Procedures Procedure Name Priority Date/Time Associated Diagnosis Comme nts PROPHYLAXIS-ADULT Routine 02/07/2021 9:00 AM CDT Chronic perio dontitis, RECALL localized, slight 14 EXISTING PFM CROWN Routine 07/09/2009 12:00 AM FACTORY SUPERVISOR documented in this encounter Visit Diagnoses Diagnosis Chronic periodontitis, localized, slight - Primary documented in this encounter Care Teams Repairing Calibrator Relationship Specialty Start Date End Date Alisha Kimball MD PCP - General 07/08/05 [address] [place] [address] documented as of this encounter
--- OUTSIDE RECORDS SUMMARY | 2022-04-07 07:21 | XMS_ITS | Encounter Summary ---
:1955 Author Organization [facility] Address [address] [place] [address] Care Team Providers Name Role Phone Alisha Kimball MD Primary Care Provider Reason for Visit Procedure/Equipment (Routine) - Incomplete Specialty Diagnoses / Procedures Referred By Contact Refer red To Contact Diagnoses Screening for osteoporosis Alisha Kimball MD Procedures DEXA Bone Density Spine/Hip [address] [place] [address] Referral ID Status Reason Start Date Expiration Date Visits V isits Requested Authorized [id number] Incomplete 01/03/2020 04/03/2021 1 1 Encounter Details Date Type Department Care Team Description 02/22/2020 Ancillary [facility] Alisha Kimball Scre ening for Procedure 401 Bone Density osteoporosis [address] [facility] [address] [place], [place] [phone] [id number] Social History Tobacco Use Types Packs/Day Years Used Date Smoking Tobacco: Never Smokeless Tobacco: Never Alcohol Use Standard Drinks/Week Comments No 0 (1 standard drink = 0.6 oz pure alcoho l) Sex Assigned at Date Recorded Not on file documented as of this encounter Plan of Treatment Not on filedocumented as of this encounter Procedures Procedure Name Priority Date/Time Associated Diagnosis Comme nts DXA BONE DENSITY Routine 02/22/2020 9:18 AM Screening for Resu lts for this SPINE/HIP CDT osteoporosis procedure are i n the results section. documented in this encounter Results DEXA Bone Density Spine/Hip (02/22/2020 9:18 AM CDT) Anatomical Region Laterality Modality Lower Extremity, Spine, Hip, L-Spine Oth er Specimen (Source) Anatomical Location Collection Method / Collectio n Time Received Time / Laterality Volume Narrative 02/22/2020 12:58 PM CDT Indication:Screening Driver'S License Examiner and Model of Instrument: Tour Engine Demographics Age: 65 y.o. Gender: female Height [...] Alcohol 3units or more per day (on Hatch):No Currently smoking:No Other pertinent history: Dual-X-ray Absorptiometry [...] Typical threshold to start therapy in [facility] is a 10-year risk of hip fracture [...] osteoporosis. FRAX and Fracture Risk Categories in ter ms of major osteoporotic fracture risk (clinical [...] these levels. Alisha Kimball MD RAD DEXA documented in this encounter Visit Diagnoses Diagnosis Screening for osteoporosis Special screening for osteoporosis documented in this encounter Care Teams Powder Line Repairer Relationship Specialty Start Date End Date Alisha Kimball MD PCP - General 07/08/05 [address] [place] [address] documented as of this encounter
--- OUTSIDE RECORDS SUMMARY | 2022-04-07 07:21 | XMS_ITS | Encounter Summary ---
:1955 Author Organization [facility] Address [address] [place] [address] Care Team Providers Name Role Phone Alisha Kimball MD Primary Care Provider Encounter Details Date Type Department Care Team Description 06/14/2020 Anticoagulation [facility] Alisha Kimball MD Anticoagulation Cent er [address] [place] [address] [address] [place], [place] [phone] Social History Tobacco Use Types Packs/Day Years Used Date Smoking Tobacco: Never Smokeless Tobacco: Never Alcohol Use Standard Drinks/Week Comments No 0 (1 standard drink = 0.6 oz pure alcoho l) Sex Assigned at Date Recorded Not on file documented as of this encounter Progress Notes Kian Barnes, RN - 06/14/2020 2:27 PM CST See TE from 06/14/2020-pt is currently on Eliquis and is not starting Coumadin/Warfarin/Jantoven until 07/2020. Kian Barnes RN/[facility] 06/14/2020 2:33 PM Marysol Agarwal RN - 06/14/2020 2:27 PM CST Will postpone for 07/18/2020 follow-up. Provider sent refill of Eliquis for patient. [facility] and is planning on switching to warfarin at that time. Marysol Davidson RN 06/14/2020, 7:19 PM ROCESS ENGINEER Floresita Wyatt - 06/14/2020 2:27 PM CST Per INR Reg: no INR recheck date . Please review. Floresita Wyatt 08/16/2020, 9:41 AM ROCESS ENGINEER Kian Barnes RN - 06/14/2020 2:27 PM CST Spoke with pt and per pt she is no longer with [facility] since then first of the year. She is now getting her primary through [facility]. Per pt she cont on Eliquis but anticoagulation is now managed by [facility]. Will discontinued anticoagulation care with [facility]. Sending as FYI to PCP. Kian Barnes RN/[facility] 08/16/2020 10:32 AM ROCESS ENGINEER documented in this encounter Plan of Treatment Not on filedocumented as of this encounter Visit Diagnoses Not on filedocumented in this encounter Care Teams Brood Hatchery Manager Relationship Specialty Start Date End Date Alisha Kimball MD PCP - General 07/08/05 [address] [place] [address] documented as of this encounter
--- OUTSIDE RECORDS SUMMARY | 2022-04-07 07:21 | XMS_ITS | Encounter Summary ---
:1955 Author Organization [facility] [place] Address [address] [place] [address] Care Team Providers Name Role Phone Alisha Kimball MD Primary Care Provider Encounter Details Date Type Department Care Team Description 01/03/2020 Lab Visit [facility] Type 2 diabetes mellitus wit hout complication, without long-term current use of insulin ([facility]); [address] Essential hypertension; [place] [address] Paroxysmal atrial fibrillati on ([facility]); [phone] Immunity status testing Social History Tobacco Use Types Packs/Day Years Used Date Smoking Tobacco: Never Smokeless Tobacco: Never Alcohol Use Standard Drinks/Week Comments No 0 (1 standard drink = 0.6 oz pure alcoho l) Sex Assigned at Date Recorded Not on file documented as of this encounter Plan of Treatment Not on filedocumented as of this encounter Procedures Procedure Name Priority Date/Time Associated Diagnosis Comme nts SARS-COV-2 IGG Routine 01/03/2020 9:17 AM Immunity status Resu lts for this ANTIBODY CDT testing procedure are i n the results section. LIPID PANEL AND Routine 01/03/2020 9:17 AM Type 2 diabetes Res ults for this DIRECT LDL(IF CDT mellitus without procedure are in NEEDED) complication, without the re sults long-term current use sectio n. of insulin ([facility]) BASIC METABOLIC Routine 01/03/2020 9:17 AM Type 2 diabetes Res ults for this PANEL CDT mellitus without procedure a re in complication, without the re sults long-term current use sectio n. of insulin ([facility]) Essential hypertension HEMOGLOBIN, BLOOD Routine 01/03/2020 9:17 AM Paroxysmal atrial Results for this CDT fibrillation (HRC) procedure are in the results section. HGB A1C Routine 01/03/2020 9:17 AM Type 2 diabetes Result s for this CDT mellitus without procedure a re in complication, without the re sults long-term current use sectio n. of insulin (HRC) ALT (SGPT) Routine 01/03/2020 9:17 AM Type 2 diabetes Result s for this CDT mellitus without procedure a re in complication, without the re sults long-term current use sectio n. of insulin (HRC) documented in this encounter Results Microalb/Creat Ratio (01/03/2020 11:20 AM CDT) mojio Method Time Signature Albumin, 28.6 mg/L 01/03/2020 [facility] Urine, Random 4:36 PM CDT C[facility]AL LAB Creatinine, 155 >20 mg/dL 01/03/2020 [facility] Urine, Random 4:36 PM CDT C[facility]AL LAB Albumin/Creati 18 <30 mg/g 01/03/2020 [facility] nine Ratio, 4:36 PM CDT CENTRAL LAB Urine, Random Specimen Anatomical Collection Method Collection Time Receive d Time (Source) Location / / Volume Laterality Urine Non-blood 01/03/2020 11:20 01/03/2020 Collection / AM CDT 11:34 AM CDT Unknown Alisha Kimball MD LAB_1 Performing Organization Address City/State/ZIP Code Phon e Number [facility] [address] [address] SARS-CoV-2 IgG Antibody (Inhouse) (01/03/2020 9:17 AM CDT) mojio Method Time Signature [id number] Negative Negative 01/03/2020 [facility] Antibody 3:53 PM CDT LABORATORY Interp SARS CoV-2 0.01 01/03/2020 [facility] IgG Index 3:53 PM CDT LABORATORY SARS The magnitude of 01/03/2020 [facility] CoV-2-IgG the reported 3:53 PM CDT LABORATORY Index Index is not Comment indicative of the amount of antibody present in the patient sample. SARS The SARS-CoV-2 01/03/2020 [facility] CoV-2-IgG IgG assay is 3:53 PM CDT LABORATORY Comment 1 only for use under the Food and Drug Administration's Emergency Use Authorization (EUA). SARS Negative Results 01/03/2020 [facility] CoV-2-IgG do not rule out 3:53 PM CDT LABORATORY Comment 2 SARS-CoV-2 infection, particularly in those who have been in contact with the virus. Follow-up with a molecular diagnostic test should be considered to R/O infection. SARS Results from 01/03/2020 [facility] CoV-2-IgG antibody testing 3:53 PM CDT LABORATORY Comment 3 should not be used as the sole basis to diagnose or exclude SARS-CoV-2 infection or to inform infection status. Specimen Anatomical Collection Method / Collection Time Recei dawn Time (Source) Location / Volume Laterality Blood Venipuncture / 01/03/2020 9:17 01/03/2020 9:17 Unknown AM CDT AM CDT Alisha Kimball MD LAB_1 Performing Organization Address City/[facility]/ZIP Code Phon e Number [facility] [address] [place] [address] Hemoglobin, Blood (01/03/2020 9:17 AM CDT) athologist Signature Hemoglobin 13.6 12.0 - 15.5 01/03/2020 [facility] g/dL 9:20 AM CDT LABORATORY Specimen Anatomical Collection Method / Collection Time Recei dawn Time (Source) Location / Volume Laterality Blood Venipuncture / 01/03/2020 9:17 01/03/2020 9:17 Unknown AM CDT AM CDT Alisha Kimball MD LAB_1 Performing Organization Address City/[facility] e Number [facility] [address] [place], [place] [id number] (ABNORMAL) ALT (SGPT) (01/03/2020 9:17 AM CDT) P athologist Signature ALT (SGPT) 56 (H) 0 - 55 U/L 01/03/2020 [facility] 3:07 PM CDT CENTRAL LAB Specimen Anatomical Collection Method / Collection Time Recei dawn Time (Source) Location / Volume Laterality Blood Venipuncture / 01/03/2020 9:17 01/03/2020 9:17 Unknown AM CDT AM CDT Alisha Kimball MD LAB_1 Performing Organization Address [facility]/ZIP Code Phon e Number [facility] [address] [address] (ABNORMAL) Basic Metabolic Panel (01/03/2020 9:17 AM CDT) [facility] Method Time Signature Sodium 140 136 - 145 01/03/2020 [facility] mmol/L 3:07 PM CDT CENTRAL LAB Potassium 4.8 3.5 - 5.1 01/03/2020 [facility] mmol/L 3:07 PM CDT CENTRAL LAB Chloride 108 98 - 109 01/03/2020 [facility] mmol/L 3:07 PM CDT CENTRAL LAB CO2 21 20 - 29 01/03/2020 [facility] mmol/L 3:07 PM CDT CENTRAL LAB Anion Gap 11 7 - 16 01/03/2020 [facility] mmol/L 3:07 PM CDT [facility]AL LAB Calcium 9.4 8.4 - 01/03/2020 [facility] 10.4 3:07 PM CDT [facility] mg/dL BUN 18 7 - 26 01/03/2020 [facility] mg/dL 3:07 PM CDT [facility] LAB Creatinine 0.90 0.55 - 01/03/2020 [facility] 1.02 3:07 PM CDT C[facility] LAB mg/dL GFR, Estimated >60 >60 01/03/2020 [facility] mL/min/1. 3:07 PM CDT CENTRAL LAB 73m2 Glucose 132 (H) 70 - 100 01/03/2020 [facility] mg/dL 3:07 PM CDT CENTRAL LAB Comment: [...] Alisha Kimball MD LAB_1 Performing Organization Address [facility]/ZIP Code Phon e Number [facility] [address] [address] [facility] [address] [place], [place] [id number] [place] [address] (ABNORMAL) Lipid Panel and Direct LDL(If Needed) (01/03/2020 9:17 AM CDT) [facility] Method Time Signature Cholesterol 157 0 - 199 01/03/2020 [facility] mg/dL 3:07 PM CDT CENTRAL LAB Triglyceride 157 (H) <=149 01/03/2020 [facility] mg/dL 3:07 PM CDT [facility] HDL Cholesterol 46 >=40 01/03/2020 [facility] mg/dL 3:07 PM CDT [facility] LDL, Calculated 80 <130 01/03/2020 [facility] mg/dL 3:07 PM CDT [facility] Non HDL Chol, 111 mg/dL 01/03/2020 [facility] Calculated 3:07 PM CDT [facility] Cholesterol/HDL 3.4 01/03/2020 [facility] Ratio 3:07 PM CDT [facility]AL [facility] Hours Fasting 12 01/03/2020 [facility] 3:07 PM CDT LABORATORY Specimen Anatomical Collection Method / Collection Time Recei adwn Time (Source) Location / Volume Laterality Blood Venipuncture / 01/03/2020 9:17 01/03/2020 9:17 Unknown AM CDT AM CDT Alisha Kimball MD LAB_1 Performing Organization Address City/State/[facility] Code Phon e Number [facility] C[facility] LAB [address] [address] [facility] [address] [place] [id number] [phone] (ABNORMAL) Hgb A1C (01/03/2020 9:17 AM CDT) [facility] Method Time Signature Hemoglobin A1C 7.6 (H) <=5.6 % 01/03/2020 [facility] 1:12 PM CDT CENTRAL LAB Specimen Anatomical Collection Method / Collection Time Recei dawn Time (Source) Location / Volume Laterality Blood Venipuncture / 01/03/2020 9:17 01/03/2020 9:17 Unknown AM CDT AM CDT Narrative [facility] - 01/03/2020 1:12 PM CDT For patients not previously diagnosed with diabetes: 5.7-6.4%: Increased risk for diabetes 6.5% and greater: Diagnostic for diabete s For patients diagnosed with diabetes: <8.0%: Goal of therapy for ages 18-75 Clinicians may recommend a higher or low er goal for specific individuals. Alisha Kimball MD LAB_1 Performing Organization Address City/State/ZIP Code Phon e Number [facility] [address] [phone] documented in this encounter Visit Diagnoses Diagnosis Type 2 diabetes mellitus without complic ation, without long-term current use of insulin ([facility]) Essential hypertension ([facility]) Unspecified essential hypertension Paroxysmal atrial fibrillation ([facility]C) Atrial fibrillation Immunity status testing Antibody response examination documented in this encounter Care Teams Needle Felt Making Machine Operator Relationship Specialty Start Date End Date Alisha Kimball MD PCP - General 07/08/05 [address] [place] [address] documented as of this encounter
--- OUTSIDE RECORDS SUMMARY | 2022-04-07 07:21 | XMS_ITS | Encounter Summary ---
:1955 Author Organization [employer] Address [address] [place] [address] Care Team Providers Name Role Phone Alisha Kimball MD Primary Care Provider Reason for Visit Reason Comments LAB TESTS, NOS Encounter Details Date Type Department Care Team Description 04/03/2020 Telephone [facility] Alisha Oneill MD LAB TESTS, NOS [address] [facility] [address] [place], [place] [address] [place] [address] [phone] (Wo rk) Social History Tobacco Use Types Packs/Day Years Used Date Smoking Tobacco: Never Smokeless Tobacco: Never Alcohol Use Standard Drinks/Week Comments No 0 (1 standard drink = 0.6 oz pure alcoho l) Sex Assigned at Date Recorded Not on file documented as of this encounter Nursing Notes Francesca Cho CMA - 04/03/2020 2:42 PM CDT Labs ordered. Having her 3 month check from her 01/2020 appointment. Maricarmen Paez - 04/03/2020 1:29 PM CDT Please clarify what lab testing is needed as patient is on lab schedule for 04/11/20. Thanks AV lab documented in this encounter Plan of Treatment Not on filedocumented as of this encounter Results (ABNORMAL) Hgb A1C (04/11/2020 8:48 AM CDT) [facility] gist Method Time Signature Hemoglobin A1C 7.2 (H) <=5.6 % 04/11/2020 [facility] 10:07 PM CDT CENTRAL LAB Specimen Anatomical Collection Method / Collection Time Recei dawn Time (Source) Location / Volume Laterality Blood Venipuncture / 04/11/2020 8:48 04/11/2020 8:48 Unknown AM CDT AM CDT Narrative [facility] - 04/11/2020 10:07 PM CDT For patients not previously diagnosed with diabetes: 5.7-6.4%: Increased risk for diabetes 6.5% and greater: Diagnostic for diabete s For patients diagnosed with diabetes: <8.0%: Goal of therapy for ages 18-75 Clinicians may recommend a higher or low er goal for specific individuals. Ailsha Kimball MD LAB_1 Performing Organization Address City/State/ZIP Code Phon e Number [facility] [address] [address] documented in this encounter Visit Diagnoses Diagnosis Type 2 diabetes mellitus without complic ation, without long-term current use of insulin (HRC) - Primary Hypercholesterolemia Pure hypercholesterolemia documented in this encounter Care Teams Lodging Manager Relationship Specialty Start Date End Date Alisha Kimball MD PCP - General 07/08/05 [address] [place] [address] documented as of this encounter
--- OUTSIDE RECORDS SUMMARY | 2022-04-07 07:21 | XMS_ITS | Encounter Summary ---
:1955 Author Organization [facility] Address [address] [place] [address] Care Team Providers Name Role Phone Alisha Kimball MD Primary Care Provider Reason for Referral Procedure/Equipment (Routine) - Incomplete Specialty Diagnoses / Procedures Referred By Contact Refer red To Contact Procedures Alisha Kimball MD MM Mammogram Screening [facility] [address] [place] [address] Referral ID Status Reason Start Date Expiration Date Visits V isits Requested Authorized [id number] Incomplete 02/12/2020 05/13/2021 1 1 Reason for Visit Procedure/Equipment (Routine) - Incomplete Specialty Diagnoses / Procedures Referred By Contact Refer red To Contact Procedures Alisha Kimball MD MM Mammogram Screening [facility] [address] [place] [address] Referral ID Status Reason Start Date Expiration Date Visits V isits Requested Authorized [id number] Incomplete 02/12/2020 05/13/2021 1 1 Encounter Details Date Type Department Care Team Description 02/12/2020 Ancillary Procedure [facility] Mammography [address] [facility] [place] [address] Social History Tobacco Use Types Packs/Day Years Used Date Smoking Tobacco: Never Smokeless Tobacco: Never Alcohol Use Standard Drinks/Week Comments No 0 (1 standard drink = 0.6 oz pure alcoho l) Sex Assigned at Date Recorded Not on file documented as of this encounter Plan of Treatment Not on filedocumented as of this encounter Procedures Procedure Name Priority Date/Time Associated Diagnosis Comme nts MM MAMMOGRAM Routine 02/12/2020 9:26 AM Results f or this SCREENING BILAT W CDT procedure are in CAD the results section. documented in this encounter Results MM Mammogram Screening Bilat W CAD (02/12/2020 9:26 AM CDT) Anatomical Region Laterality Modality Breast Bilateral Mammography Specimen (Source) Anatomical Location Collection Method / Collectio n Time Received Time / Laterality Volume Impressions 02/12/2020 4:57 PM CDT : ACR BI-RADS Category 1: Negative RECOMMENDATION: Follow Up Imaging in 12 months - Bilateral The results and recommendations of this examination will be communicated to the patient. Narrative 02/12/2020 4:57 PM CDT MM MAMMOGRAM SCREENING BILAT W CAD performed on 02/12/20 Compared to: 02/10/2019 MM Mammogram Scr eening Bilat W CAD, 01/18/2018 MM Mammogram Screening Bilat W CAD, and MM Mammogram Screening Bilat W CAD FINDINGS: Bilateral screening mammogram was performed with the assistance of Computer-Aided Detection. The breasts are almost entirely fatty. There is no radiographic evidence of mal ignancy. ?? Alisha Kimball MD RAD MIKEY documented in this encounter Visit Diagnoses Not on filedocumented in this encounter Care Teams Relief Docking Master Relationship Specialty Start Date End Date Alisha Kimball MD PCP - General 07/08/05 [address] [place] [address] documented as of this encounter
--- OUTSIDE RECORDS SUMMARY | 2022-04-07 07:21 | XMS_ITS | Encounter Summary ---
:1955 Author Organization [email or web address] Address [address] [place] [address] Care Team Providers Name Role Phone Alisha Kimball MD Primary Care Provider Reason for Visit Reason Comments Medication Questions Encounter Details Date Type Department Care Team Description 01/10/2020 Telephone [facility] Alisha Kimball MD Medication Questions Practice [address] [place] [address] [place] [address] [phone] Social History Tobacco Use Types Packs/Day Years Used Date Smoking Tobacco: Never Smokeless Tobacco: Never Alcohol Use Standard Drinks/Week Comments No 0 (1 standard drink = 0.6 oz pure alcoho l) Sex Assigned at Date Recorded Not on file documented as of this encounter Nursing Notes Alisha Kimball MD - 01/10/2020 3:34 PM CDT OK. See orders. Alisha Kimball MD Sue Alexander - 01/10/2020 3:10 PM CDT It needs to be specific for medicare Alisha Kimball MD - 01/10/2020 3:08 PM CDT This was already done yesterday unless I am not understanding what is needed. Thanks! Alisha Kimball MD Henri Weinberg - 01/10/2020 2:27 PM CDT Medications - Med Change / Question What is the name of the medication? blood glucose (ACCU-CHEK STACEY PLUS) test strip What is your question or concern? Please change the script to test once a day for non insulin pt due to medicare part B requirements. Is the patient there waiting? No Henri Weinberg Please route to: Care Team Pool documented in this encounter Plan of Treatment Not on filedocumented as of this encounter Visit Diagnoses Diagnosis Type 2 diabetes mellitus without complic ation, without long-term current use of insulin (HRC) documented in this encounter Care Teams Cat Cracker Operator Relationship Specialty Start Date End Date Alisha Kimball MD PCP - General 07/08/05 [address] [place] [address] documented as of this encounter
--- OUTSIDE RECORDS SUMMARY | 2022-04-07 07:21 | XMS_ITS | Encounter Summary ---
:1955 Author Organization [employer] Address [address] [place] [address] Care Team Providers Name Role Phone Alisha Kimball MD Primary Care Provider Reason for Visit Reason Comments Dental Exam none Dental Hygiene Encounter Details Date Type Department Care Team Description 06/12/2021 Office Visit [facility] [address] [place] [address] Dental Exam (none); Dentistry [facility], Exam Dental Hygiene [address] [place] [address] Social History Tobacco Use Types Packs/Day Years Used Date Smoking Tobacco: Never Smokeless Tobacco: Never Alcohol Use Standard Drinks/Week Comments No 0 (1 standard drink = 0.6 oz pure alcoho l) Sex Assigned at Date Recorded Not on file documented as of this encounter Last Filed Vital Signs Vital Sign Reading Time Taken Comments Blood Pressure - - Pulse 61 06/12/2021 9:19 AM HUMAN RESOURCES MANAGER MANUFACTURING Temperature - - Respiratory Rate - - Oxygen Saturation - - Inhaled Oxygen Concentration - - Weight - - Height - - Body Mass Index - - documented in this encounter Patient Instructions Patient InstructionsJamaal Cleveland DDS - 06/12/2021 9:20 AM CST Your next hygiene recall is due 10/12/2021 YOUR PERSONAL DENTAL RISK REPORT CARIES (TOOTH DECAY) PERIODONTAL (GUM) DISEASE ORAL CANCER LOW mod high low MOD high LOW elevated ^ ^ ^ Risk Level: LOW How to Maintain Your Low Risk: Hygiene recall at 12 to 18 months. Instruction from dental professional on brushing, flossing, and use of oral hygiene products. Radiographs to detect decay. Congratulations on your low risk for tooth [...] assess periodontal condition and provide necessary treatment. Use of a specific antibacterial oral rinse to reduce the decay causing bacteria in the mouth. Specific information about what causes periodontal disease [...] next visit! Thank you for choosing [facility]. N RESOURCES MANAGER MANUFACTURING documented in this encounter Progress Notes Jamaal Cleveland DDS - 06/12/2021 9:20 AM CST RECALL EXAM NOTE REASON FOR VISIT/CHIEF COMPLAINT: Loc is a 66 y.o. female who presents for No chief complaint on file. CHART REVIEW: Reviewed with patient: Medical history, [...] 8 months : Recall prophy: 4 months No treatment indicated at this time. Next Planned Visit: recall. Jamaal Cleveland DDS 06/12/2021, 9:45 AM --End of Note-- N RESOURCES MANAGER MANUFACTURING Addie Gonzalez RDH - 06/12/2021 9:20 AM CST HYGIENE PROPHY NOTE COLLABORATIVE AGREEMENT: The patient consents to have charting, radiographs and prophylaxis by the dental hygienist performed with the understanding that this care is not a substitute for an examination by a dentist. These activities were performed under a collaborating agreement with Josue Kerns DDS (License #: [id number]) PROCEDURAL PAUSE: Patient identity verified: Yes Treatment plan/site verified with the patient: Yes Instruments/equipment verified: Yes Any medication/allergy contraindications: Yes, see health hx. PRESENTATION: Oral Hygiene: Good Plaque: Localized, light supra-gingival , interproximal and posterior buccal Calculus: Localized, moderate supra-gingival , sub-gingival, mandibular anterior and slight calc around moarls. Stain: Localized, light coffee/tea Bleeding: Localized light Gingival tissue: Normal Mucogingival concerns: Present recession ACTIVITIES: Hand scale, Essential selective polishing and Flossed all contacts PATIENT EDUCATION: Caries risk, Periodontal risk, Etiology of periodontal disease, OHI, Demonstratedflossing, Oral care adjuncts and Fluoride rinse NEXT PLANNED HYGIENE VISIT: Hygiene Prophy no exam Addie Gonzalez RDH 06/12/2021, 10:00 AM --End of Note-- N RESOURCES MANAGER MANUFACTURING documented in this encounter Plan of Treatment Not on filedocumented as of this encounter Procedures Procedure Name Priority Date/Time Associated Diagnosis Comme nts [id number] Routine 06/12/2021 9:20 AM HUMAN RESOURCES MANAGER MANUFACTURING Chronic charlie odontitis, localized, slight PERIODIC ORAL Routine 06/12/2021 9:20 AM HUMAN RESOURCES MANAGER MANUFACTURING Chronic periodont itis, EVALUATION localized, slight PROPHYLAXIS-ADULT Routine 06/12/2021 9:20 AM HUMAN RESOURCES MANAGER MANUFACTURING Chronic perio dontitis, RECALL localized, slight documented in this encounter Visit Diagnoses Diagnosis Chronic periodontitis, localized, slight - Primary documented in this encounter Care Teams Geospatial Extractor Analysis Relationship Specialty Start Date End Date Alisha Kimball MD PCP - General 07/08/05 [address] [place] [address] documented as of this encounter
--- OUTSIDE RECORDS SUMMARY | 2022-04-07 07:21 | XMS_ITS | Encounter Summary ---
:1955 Author Organization [facility] Address [address] [place] [address] Care Team Providers Name Role Phone Carroll Avalos MD Primary Care Provider Encounter Details Date Type Department Care Team Description 04/11/2020 Lab Visit [place] Elevated liver enzymes (Primary Dx); Laboratory Essential hypertension; [address] [facility] TANNER (dyspnea on exertion); [place], [place] [address] Type 2 diabetes mellitus wit hout complication, without long-term current use of insulin (HRC); [phone] Hypercholestero lemia Social History Tobacco Use Types Packs/Day Years Used Date Smoking Tobacco: Never Smokeless Tobacco: Never Alcohol Use Standard Drinks/Week Comments No 0 (1 standard drink = 0.6 oz pure alcoho l) Sex Assigned at Date Recorded Not on file documented as of this encounter Progress Notes Carroll Avalos MD - 04/11/2020 9:00 AM CDT Addended by: CARROLL AVALSO on: 04/14/2020 01:10 PM Modules accepted: Orders documented in this encounter Plan of Treatment Not on filedocumented as of this encounter Procedures Procedure Name Priority Date/Time Associated Diagnosis Comme nts ALBUMIN/CREAT RATIO Routine 04/11/2020 11:00 Resu lts for this AM CDT procedure are i n the results section. BASIC METABOLIC Routine 04/11/2020 8:48 AM Essential Result s for this PANEL CDT hypertension procedure are i n the results section. COMPLETE BLOOD Routine 04/11/2020 8:48 AM Essential Results for this COUNT-NO DIFF CDT hypertension procedure are in the results section. TSH, SENSITIVE Routine 04/11/2020 8:48 AM TANNER (dyspnea on Resu lts for this (WITH REFLEX) CDT exertion) procedure are in the results section. HGB A1C Routine 04/11/2020 8:48 AM Type 2 diabetes Result s for this CDT mellitus without procedure a re in complication, without the re sults long-term current use sectio n. of insulin (HRC) ALT (SGPT) Routine 04/11/2020 8:48 AM Essential Results f or this CDT hypertension procedure are i n the results section. documented in this encounter Results (ABNORMAL) Microalb/Creat Ratio (04/11/2020 11:00 AM CDT) [facility] Method Time Signature Albumin, 72.7 mg/L 04/11/2020 [employer] Urine, Random 5:52 PM CDT [facility] Creatinine, 129 >20 mg/dL 04/11/2020 [facility] Urine, Random 5:52 PM CDT C[facility]AL [facility] Albumin/Creati 56 (H) <30 mg/g 04/11/2020 [facility] nine Ratio, 5:52 PM CDT C[facility]AL LAB Urine, Random Specimen Anatomical Collection Method Collection Time Receive d Time (Source) Location / / Volume Laterality Urine,random 04/11/2020 11:00 04/11/2020 AM CDT 12:31 PM CDT Kareen Cohen APRN, ISI LAB_1 Performing Organization Address City/State/ZIP Code Phon e Number [facility] [address] [address] (ABNORMAL) Hgb A1C (04/11/2020 8:48 AM CDT) [employer] Method Time Signature Hemoglobin A1C 7.2 (H) <=5.6 % 04/11/2020 [facility] 10:07 PM CDT C[facility] Specimen Anatomical Collection Method / Collection Time Recei dawn Time (Source) Location / Volume Laterality Blood Venipuncture / 04/11/2020 8:48 04/11/2020 8:48 Unknown AM CDT AM CDT Narrative [facility] - 04/11/2020 10:07 PM CDT For patients not previously diagnosed with diabetes: 5.7-6.4%: Increased risk for diabetes 6.5% and greater: Diagnostic for diabete s For patients diagnosed with diabetes: <8.0%: Goal of therapy for ages 18-75 Clinicians may recommend a higher or low er goal for specific individuals. Carroll Avalos MD LAB_1 Performing Organization Address [facility] e Number [facility] C[facility]AL LAB [address] [address] TSH with Free T4 (if TSH Abnormal) (04/11/2020 8:48 AM CDT) athologist Signature TSH, Reflex 3.02 0.30 - 04/11/2020 [facility] 4.50 11:53 AM CDT CENTRAL LAB uIU/mL Specimen Anatomical Collection Method / Collection Time Recei dawn Time (Source) Location / Volume Laterality Blood Venipuncture / 04/11/2020 8:48 04/11/2020 8:48 Unknown AM CDT AM CDT [facility] CEN[facility]AL LAB - 04/11/2020 11:53 AM CDT Lab will automatically reflex to Free T4 when TSH results are <0.30 uIU/mL or >4.50 mIU/mL. Janice Gill PA-C LAB_1 Performing Organization Address [facility] e Number [facility] [address] [place] [address] (ABNORMAL) ALT (SGPT) (04/11/2020 8:48 AM CDT) athologist Signature ALT (SGPT) 63 (H) 0 - 55 U/L 04/11/2020 [facility] 11:44 AM CDT CENTRAL LAB Specimen Anatomical Collection Method / Collection Time Recei dawn Time (Source) Location / Volume Laterality Blood Venipuncture / 04/11/2020 8:48 04/11/2020 8:48 Unknown AM CDT AM CDT Janice Gill PA-C LAB_1 Performing Organization Address [facility] e Number [facility] [address] [address] (ABNORMAL) BASIC METABOLIC PANEL (04/11/2020 8:48 AM CDT) [facility] gist Method Time Signature Sodium 139 136 - 145 04/11/2020 [facility] mmol/L 11:44 AM CDT CENTRAL LAB Potassium 4.6 3.5 - 5.1 04/11/2020 [facility] mmol/L 11:44 AM CDT C[facility]AL LAB Chloride 105 98 - 109 04/11/2020 [facility] mmol/L 11:44 AM CDT C[facility]AL LAB CO2 26 20 - 29 04/11/2020 [facility] mmol/L 11:44 AM CDT C[facility] Anion Gap 8 7 - 16 04/11/2020 [facility] mmol/L 11:44 AM CDT [facility] Calcium 9.1 8.4 - 04/11/2020 [facility] 10.4 11:44 AM CDT [facility] mg/dL BUN 16 7 - 26 04/11/2020 [facility] mg/dL 11:44 AM CDT [facility] Creatinine 0.87 0.55 - 04/11/2020 [facility] 1.02 11:44 AM CDT [facility]AL [facility] mg/dL GFR, Estimated >60 >60 04/11/2020 [facility] mL/min/1. 11:44 AM CDT C[facility] LAB 73m2 Glucose 128 (H) 70 - 100 04/11/2020 [facility] mg/dL 11:44 AM CDT CENTRAL LAB Comment: The given reference range is fo r the fasting state. Non-fasting reference range for glucose is 70 - 180 mg/dL. Hours Fasting N/A 04/11/2020 11:44 AM CDT [facility] Specimen Anatomical Collection Method / Collection Time Recei dawn Time (Source) Location / Volume Laterality Blood Venipuncture / 04/11/2020 8:48 04/11/2020 8:48 Unknown AM CDT AM CDT Janice Gill PA-C LAB_1 Performing Organization Address City/State/ZIP Code Phon e Number [facility] [address] [address] [facility] [address] [place] [address], [facility] CBC (aka HEMOGRAM/PLTS) (04/11/2020 8:48 AM CDT) P athologist Signature WBC 7.1 3.5 - 10.5 04/11/2020 [place] x10(9)/L 8:58 AM CDT LAB RBC 4.71 3.90 - 5.03 04/11/2020 [place] x10(12)/L 8:58 AM CDT LAB Hemoglobin 13.9 12.0 - 15.5 04/11/2020 [place] g/dL 8:58 AM CDT LAB HCT 42.3 34.9 - 44.5 04/11/2020 [place] % 8:58 AM CDT LAB MCV 89.8 80.0 - 04/11/2020 [place] 100.0 fL 8:58 AM CDT LAB MCH 29.5 27.6 - 33.3 04/11/2020 [place] pg 8:58 AM CDT LAB MCHC 32.9 31.5 - 35.2 04/11/2020 [place] g/dL 8:58 AM CDT LAB RDW 13.1 11.9 - 15.5 04/11/2020 [place] % 8:58 AM CDT LAB Platelets 223 150 - 450 04/11/2020 [place] x10(9)/L 8:58 AM CDT LAB Specimen Anatomical Collection Method / Collection Time Recei dawn Time (Source) Location / Volume Laterality Blood Venipuncture / 04/11/2020 8:48 04/11/2020 8:48 Unknown AM CDT AM CDT Janice Gill PA-C LAB_1 Performing Organization Address City/State/ZIP Code Phon e Number [facility] [address] [place] [address] documented in this encounter Visit Diagnoses Diagnosis Elevated liver enzymes - Primary Nonspecific elevation of levels of trans aminase or lactic acid dehydrogenase (LDH) Essential hypertension (HRC) Unspecified essential hypertension TANNER (dyspnea on exertion) Other dyspnea and respiratory abnormalit y Type 2 diabetes mellitus without complic ation, without long-term current use of insulin (HRC) Hypercholesterolemia Pure hypercholesterolemia documented in this encounter Care Teams Production Controller Relationship Specialty Start Date End Date Carroll Avalos MD PCP - General 07/08/[address] [place] [address] (work) documented as of this encounter
--- OUTSIDE RECORDS SUMMARY | 2022-04-07 07:21 | XMS_ITS | Encounter Summary ---
:1955 Author Organization [facility] Address [address] [place] [address] Care Team Providers Name Role Phone Carroll Avalos MD Primary Care Provider Reason for Referral Medication Prior Authorization (Routine) - Closed Specialty Diagnoses / Procedures Referred By Contact Refer red To Contact Carroll Avalos MD [address] [place] [address] Referral ID Status Reason Start Date Expiration Date Visits Requ ested Visits Authorized [id number] Closed 1 1 N KEEPER Reason for Visit Reason Comments Refill metFORMIN XR (GLUCOPHAGE XR) 500 MG 24 hour release tablet [Pharmacy Med Name: METFORMIN HCL ER 500 MG TABL ET]; atorvastatin (LIPITOR) 10 MG tablet [Pharmacy Med Name: ATORVASTATIN 10 MG TABLET] Encounter Details Date Type Department Care Team Description 08/25/2020 Refill [facility] Carroll Avalos MD Refill (metFORMIN XR [address] [facility] [address] (GLUCOPHAGE XR) 500 [place] [address] [place] [address] 24 hour release tablet [phone] (Wo rk) [Pharmacy Med Name: METFORMIN HCL ER 500 MG TABLET]; atorva statin (LIPITOR) 10 MG tablet [Pharmacy Med N dameon: ATORVASTATIN 10 MG TABLET]) Social History Tobacco Use Types Packs/Day Years Used Date Smoking Tobacco: Never Smokeless Tobacco: Never Alcohol Use Standard Drinks/Week Comments No 0 (1 standard drink = 0.6 oz pure alcoho l) Sex Assigned at Date Recorded Not on file documented as of this encounter Nursing Notes Tesha Cagle RN - 08/26/2020 4:23 PM CST Per standing order. Tesha Cagle RN 08/26/2020, 4:23 PM N KEEPER Interface, Out Surescripts Prov Query - 08/25/2020 11:42 AM CST atorvastatin (LIPITOR) 10 MG tablet [Pharmacy Med Name: ATORVASTATIN 10 MG TABLET] Miscellaneous - 12 Month Visit -> Refill x 9 months, qty: 45, refills: 2 (until due for an office visit) Last qualifying visit: 04/16/2020 (with CARROLL AVALOS) Next scheduled visit: None Last ordered by CARROLL AVALOS: 08/16/2019 (375 days ago) QTY: 45, Refills: 3, Sig: take 0.5 tablets by mouth daily. (changed but equivalent) Powered by [facility], Reference: [id number], 08/25/2020 11:42:56 AM Luis Eduardo COREY: ARNOLD REFILL RN ([id number]) metFORMIN XR (GLUCOPHAGE XR) 500 MG 24 hour release tablet [Pharmacy Med Name: METFORMIN HCL ER 500 MG TABLET] Metformin -> Refill x 9 months, qty: 360, refills: 2 (until due for a(n) Cr check and HBA1C check) Last qualifying visit: 04/16/2020 (with CARROLL AVALOS) Next scheduled visit: None Last ordered by CARROLL AVALOS: 08/16/2019 (375 days ago) QTY: 360, Refills: 3, Sig: take 4 tabletsby mouth daily with breakfast. (unchanged) Cr: 0.87 mg/dL on 04/11/2020 HBA1C: 7.2 % on 04/11/2020 Powered by [employer], Reference: [id number], 08/25/2020 11:42:56 AM AVIAN KEEPER, Pool: ARNOLD REFILL CAITLYN ([id number]) N KEEPER Interface, Out DCITS Prov Query - 08/25/2020 11:42 AM CST The following lab order(s) may be associated with the Result Note below: COMPLETE BLOOD COUNT-NO DIFF Notes recorded by Lucy Mancuso RN on 04/11/2020 at 10:39 AM CDT Letter sent with results. Lucy Mancuso RN 04/11/2020, 10:39 AM N KEEPER documented in this encounter Plan of Treatment Not on filedocumented as of this encounter Visit Diagnoses Not on filedocumented in this encounter Care Teams Automobile Tester Relationship Specialty Start Date End Date Carroll Avalos MD PCP - General 07/08/05 [address] [place] [address] documented as of this encounter
--- OUTSIDE RECORDS SUMMARY | 2022-04-07 07:21 | XMS_ITS | Encounter Summary ---
:1955 Author Organization [facility] Address [address] [place] [address] Care Team Providers Name Role Phone Alisha Kimball MD Primary Care Provider Encounter Details Date Type Department Care Team Description 04/12/2020 Lab Visit [facility] [place] [address] [place], [place] [address] Social History Tobacco Use [...] on filedocumented in this encounter Care Teams Seed Cleaner Relationship Specialty Start Date End Date Alisha Kimball MD PCP - General 07/08/[address] [place], [place] [id number] documented as of this encounter
--- OUTSIDE RECORDS SUMMARY | 2022-04-07 07:21 | XMS_ITS | Encounter Summary ---
:1955 Author Organization [facility] Address [address] [place] [address] Care Team Providers Name Role Phone Alisha Kimball MD Primary Care Provider Encounter Details Date Type Department Care Team Description 08/16/2020 [facility] er [address] [facility] [address] [facility] [place] [address] [address] [place], [place] [phone] Social History Tobacco Use Types Packs/Day Years [...] on filedocumented in this encounter Care Teams Stereoplotter Operator Relationship Specialty Start Date End Date Alisha Kimball MD PCP - General 07/08/05 [address] [place] [address] documented as of this encounter
--- OUTSIDE RECORDS SUMMARY | 2022-04-07 07:21 | XMS_ITS | Encounter Summary ---
:1955 Author Organization [facility] Address [address] [place] [address] Care Team Providers Name Role Phone Alisha Kimball MD Primary Care Provider Reason for Visit Reason Comments BP,ELEVATED Encounter Details Date Type Department Care Team Description 04/11/2020 Telephone [place] [facility] Alisha Remy MD BP,ELEVATED [address] [place] [address] [place] [address] (Wo rk) Social History Tobacco Use Types Packs/Day Years Used Date Smoking Tobacco: Never Smokeless Tobacco: Never Alcohol Use Standard Drinks/Week Comments No 0 (1 standard drink = 0.6 oz pure alcoho l) Sex Assigned at Date Recorded Not on file documented as of this encounter Nursing Notes Vero Robin - 04/12/2020 8:43 AM CDT Patient called back, scheduled appointment with Dr. Kimball on 04/16/20 Perfecto Morel I - 04/12/2020 8:35 AM CDT Left message to call back and schedule. Perfecto Morel 04/12/2020, 8:36 AM Alisha Kimball MD - 04/12/2020 8:29 AM CDT Needs OV with me or adult nurse in 1-2 weeks for blood pressure check. Will need repeat Cr and K (non-fasting) at that visit. Thanks! Alisha Kimball MD Nena Leal MD - 04/11/2020 6:58 PM CDT Looks like it was already taken care of by a provider. Increased her dose to 100mg losartan. Will let Dr. Kimball decide how she wants patient to follow up 1- 2 weeks. Thanks! Nena Leal MD 04/11/2020, 6:59 PM Maria E Castillo LPN - 04/11/2020 6:40 PM CDT Should patient schedule OV or Video/phone visit with Dr. Kimball? Please advise. Maria E Castillo LPN Tara Lozano RN - 04/11/2020 11:35 AM CDT Please see nurse appointment from today. Message to covering provider to review. Tara Lozano RN 04/11/2020, 11:35 AM Treasure Romano - 04/11/2020 11:11 AM CDT Symptoms Describe your symptoms (if pain, include location): Patient was seen at [facility] today, and had her BP checked. It was 167/136. Was told to call her clinic. What have you tried at home (please specify medication name, if any)? Patient on Losartan. Have you recently been seen for this? Yes: [[facility]: Refer to Symptoms Indicating Need for Triage list to determine urgency level and next steps - if Urgent or Routine, schedule appointment within the appropriate timeframe.If patient wants to speak to an RN, please warm transfer/route to RN for further triage.] [[facility]: Add/verify patient preferred pharmacy is highlighted in blue in the Pharmacy Selection under Meds & Orders] [[facility]: If this call is after 3 p.m., communicate to patient: If we are not able to get back to you by the end of the day and your symptoms worsen, please contact the Careline [phone] OR at .] Is it okay to leave a detailed message on your voicemail? Yes I can transfer you to talk to a Triage Nurse or I am happy to get you scheduled with your primary daytime caregiver or one of their partners for a Video/Phone Visit to take care of your concern. Which would you prefer? Triage Nurse Treasure Romano Please warm transfer/route to Care Team Support RN / Primary RN / Triage Pool for further triage -OR- follow your regular process documented in this encounter Plan of Treatment Not on filedocumented as of this encounter Visit Diagnoses Diagnosis Essential hypertension (HRC) - Primary Unspecified essential hypertension documented in this encounter Care Teams Vice President Client Services Relationship Specialty Start Date End Date Alisha Kimball MD PCP - General 07/08/05 [address] [place] [address] documented as of this encounter
--- OUTSIDE RECORDS SUMMARY | 2022-04-07 07:21 | XMS_ITS | Encounter Summary ---
:1955 Author Organization [facility] Address [address] [address] Care Team Providers Name Role Phone Alisha Kimball MD Primary Care Provider Reason for Visit Reason Comments Dental Hygiene none Encounter Details Date Type Department Care Team Description 02/14/2020 Office Visit [facility] Yaquelin Garcia Hy[facility] (none) [facility] [address] [address] [phone] Social History Tobacco Use Types Packs/Day Years Used Date Smoking Tobacco: Never Smokeless Tobacco: Never Alcohol Use Standard Drinks/Week Comments No 0 (1 standard drink = 0.6 oz pure alcoho l) Sex Assigned at Date Recorded Not on file documented as of this encounter Last Filed Vital Signs Vital Sign Reading Time Taken Comments Blood Pressure - - Pulse 100 02/14/2020 10:25 AM CDT Temperature - - Respiratory Rate - - Oxygen Saturation - - Inhaled Oxygen Concentration - - Weight - - Height - - Body Mass Index - - documented in this encounter Patient Instructions Patient InstructionsYaquelin Garcia [facility] - 02/14/2020 10:20 AM CDT Your next hygiene recall is due: 08/12/2020 PERSONAL DENTAL RISK REPORT FOR LAYO VELASCO Caries (Tooth Decay) Risk low mod high ^ Risk Level: MODERATE Risk Factors: Caries (tooth decay) in the last two years. How to Reduce Your Child's Risk: Hygiene recall at 6 to 12 months. Rinse with fluoride rinse once to twice daily at times other than when brushing. Use specific products to assist with proper oral hygiene such as an electric toothbrush with a timer. Instruction from dental professional on brushing, flossing, and use of oral hygiene products. We look forward to seeing Melia at her next visit! Thank you for choosing [facility]. documented in this encounter Progress Notes Yaquelin Garcia RDH - 02/14/2020 10:20 AM CDT HYGIENE PROPHY NOTE COLLABORATIVE AGREEMENT: The patient consents to have charting, radiographs and prophylaxis by the dental hygienist performed with the understanding that this care is not a substitute for an examination by a dentist. These activities were performed under a collaborating agreement with Jamaal Cleveland DDS (License #:[id number]) PRESENTATION: Oral Hygiene: Good Plaque: Localized, light supra-gingival , interproximal, mandibular anterior and posterior buccal Calculus: Localized, moderate interproximal and mandibular anterior Stain: None Bleeding: None Gingival tissue: Normal Mucogingival concerns: Absent ACTIVITIES: Hand scale, Flossed all contacts and No [place] PATIENT EDUCATION: Caries risk, Periodontal risk, Oral cancer risk, OHI, Oral care adjuncts and Fluoride rinse NEXT PLANNED HYGIENE VISIT: Hygiene Prophy no exam Patient given 1%-1.5% hydrogen peroxide, rinsed for 60 seconds prior to procedure. Yaquelin Garcia 02/14/2020, 10:43 AM --End of Note-- Kenzie Flaherty DDS - 02/14/2020 10:20 AM CDT RECALL EXAM NOTE REASON FOR VISIT/CHIEF COMPLAINT: Layo is a 65 y.o. female who presents for Dental Hygiene (none) CHART REVIEW: Reviewed with patient: Medical history, [...] : Recall prophy: 4 months Next Planned Visit: queenie diego DDS 02/14/2020, 10:54 AM --End of Note-- documented in this encounter Plan of Treatment Not on filedocumented as of this encounter Procedures Procedure Name Priority Date/Time Associated Diagnosis Comme nts [id number] Routine 02/14/2020 10:20 AM Localized gingi vitis CDT PERIODIC ORAL EVALUATION Routine 02/14/2020 10:20 AM Localized gingivitis CDT PROPHYLAXIS-ADULT RECALL Routine 02/14/2020 10:20 AM Localized gingivitis CDT documented in this encounter Visit Diagnoses Diagnosis Localized gingivitis - Primary Gingivitis Chronic gingivitis, plaque induced documented in this encounter Care Teams Recreational Resort Manager Relationship Specialty Start Date End Date Alisha Kimball MD PCP - General 07/08/05 [address] [place] [address] documented as of this encounter
--- OUTSIDE RECORDS SUMMARY | 2022-04-07 07:22 | XMS_ITS | Encounter Summary ---
:1955 Author Organization [facility] Address [address] [address] Care Team Providers Name Role Phone Alisha Kimball MD Primary Care Provider Reason for Visit Reason Comments Consult, New Patient Diabetes Consult/Transfer Care (Routine) - Closed Specialty Diagnoses / Procedures Referred By Contact Refer red To Contact Diagnoses Type 2 diabetes mellitus without complication, without long-term current use of insulin (HRC) Alisha Kimball MD [address] [facility] [place] [address] Referral ID Status Reason Start Date Expiration Date Visits Requ ested Visits Authorized [id number] Closed 07/26/2018 10/25/2019 1 1 Encounter Details Date Type Department Care Team Description 07/28/2018 Office Visit [facility] [address], Type 2 diabetes Endocrinology Clinic MD mellitus without [address] complication, [place] [address] [place], [place] long-term current use [phone] of insulin (HRC) [phone] (Primary Dx) (Work) Social History Tobacco Use Types Packs/Day Years Used Date Smoking Tobacco: Never Smokeless Tobacco: Never Alcohol Use Standard Drinks/Week Comments No 0 (1 standard drink = 0.6 oz pure alcoho l) Sex Assigned at Date Recorded Not on file documented as of this encounter Last Filed Vital Signs Vital Sign Reading Time Taken Comments Blood Pressure 117/78 07/28/2018 1:09 PM FLEET SALESPERSON Pulse 60 07/28/2018 1:09 PM FLEET SALESPERSON Temperature - - Respiratory Rate - - Oxygen Saturation - - Inhaled Oxygen Concentration - - Weight 84.4 kg (186 lb) 07/28/2018 1:09 PM FLEET SALESPERSON Height 162.6 cm (5' 4) 07/28/2018 1:09 PM FLEET SALESPERSON Body Mass Index 31.93 07/28/2018 1:09 PM FLEET SALESPERSON documented in this encounter Progress Notes Brock Bolden MD - 07/28/2018 1:15 PM CST Endocrine New Patient Visit Reason for visit: Type 2 diabetes HPI: Loc Velasco is a 63 y.o. old female seen in consultation. Diagnosed: 10 years ago Diabetes Course: able to get control intermittently with weight loss and diabetic medi fast diet Current Diabetes Regimen: metformin 2000 mg daily Review of Blood Sugars: no meter, random glucoses Am 120, bedtime 117 Hypoglycemia: none Neuropathy: none Retinopathy: yearly, none Nephropathy: none Exercising multiple times per week, eating a diabetic medi fast diet, down 10 lbs since summer 2017.Has really focused on exercise and diet since retiring recently. A 10 pt ROS was completed and negative other than positive for above Past medical, family, and social history reviewed. Physical Exam: BP 117/78 Pulse 60 Ht 5' 4 (1.626 m) Wt 186 lb (84.4 kg) BMI 31.93 kg/m?? Gen:NAD, appears euthyroid Eyes:no lid lag or exopthlamos CV:RRR without murmurs or gallops Lung:CTAB Abd:Soft and nontender Neuro:no tremor, DTR 2+ Skin:warm and moist Psych: normal affect Labs: Component Latest Ref Rng & Units 05/23/2018 12/02/2017 11/26/2017 Sodium 136 - 145 mmol/L 139 Potassium 3.5 - 5.1 mmol/L 4.3 Chloride 98 - 109 mmol/L 107 CO2 20 - 29 mmol/L 23 Anion Gap (calc.) 7 - 16 mmol/L 9 Glucose 70 - 180 mg/dl 132 Calcium 8.4 - 10.4 mg/dl 9.8 BUN 7 - 26 mg/dl 18 Creatinine 0.55 - 1.02 mg/dl 0.86 GFR, Estimated >60 ml/min/1.73m2 >60 GFR, Est., If Black >60 ml/min/1.73m2 >60 Hours Fasting hours 12 Cholesterol 0 - 199 mg/dl 162 Triglyceride 0 - 149 mg/dl 123 HDL >40 mg/dl 41 LDL, Calc. 0 - 129 mg/dl 96 Non HDL Chol, Calc 0 - 159 mg/dl 121 Microalbumin, Ur Random mg/L 2.3 Creatinine,Ur Random mg/dl 46 Ratio <30 mg/g creatinine 5 Hgb A1c 4.3 - 5.6 % 8.2 (H) Assessment and Plan: 1. Type 2 diabetes mellitus: No complications, improving control, A1C 7.5% today. Does not want to add new medications to metformin, able to bring A1C down with regular exercise and dieting. Anticipatethat now that she is retired will continue to improve glycemic control with goal A1C 7%. 2. Diabetes Complications: -Renal: Normal microalbumin/creatinine ratio and serum creatinine, recheck 12/21 -Neurologic: Normal exam, no symptoms of neuropathy, continue to follow. -Ophthalmology: Up to date -Blood pressure: At goal, continue to follow. -Cholesterol: Atorvastatin 10 -Smoking status: non smoker RTC PRN. Brock Bolden MD 07/28/2018, 2:45 PM T SALESPERSON Marysol Carey, RN - 07/28/2018 1:15 PM CST Discussed during appointment with Dr. Bolden. Marysol Carey, CAITLYN 07/28/2018, 4:44 PM T SALESPERSON documented in this encounter Nursing Notes Kian Hoffman, [facility] - 07/28/2018 1:15 PM CST How many time BS checked in a day: not checking Did patient bring blood glucose history (log book, pump, meter,or CGM)? no Medication list updated? Yes ASA: No BP Readings from Last 3 Encounters: 07/28/18 117/78 06/10/18 117/69 04/25/18 134/88 Hgb A1c (%) Date Value 05/23/2018 8.2 (H) 11/26/2017 7.7 (H) 03/04/2017 7.8 (H) LDL, Calc. (mg/dl) Date Value 11/26/2017 96 12/01/2016 82 11/30/2015 72 Tobacco Usage: reports that she has never smoked. She has never used smokeless tobacco. Kian Hoffman CMA T SALESPERSON documented in this encounter Plan of Treatment Not on filedocumented as of this encounter Procedures Procedure Name Priority Date/Time Associated Diagnosis Comme nts HGB A1C,POINT OF Routine 07/28/2018 2:30 PM Type 2 diabetes Re sults for this CARE FLEET SALESPERSON mellitus without procedure a re in complication, the results without long-term section. current use of insulin (HRC) documented in this encounter Results (ABNORMAL) Hgb A1c, Point of Care (07/28/2018 2:30 PM FLEET SALESPERSON) [facility] gist Method Time Signature Point of Care 7.5 (H) 4.3 - 5.6 [facility] Comment: This Rapid A1c test is designed for maureen toring patients with an established diagnosis o f diabetes mellitus. This rapid method is not suitable to establish the initial diagno sis of diabetes mellitus. Performed using Point of Care Instrument ation. Specimen Anatomical Collection Method Collection Time Receive d Time (Source) Location / / Volume Laterality 07/28/2018 2:30 PM 9 4:23 FLEET SALESPERSON PM FLEET SALESPERSON Brock Bolden MD LAB_1 Performing Organization Address City/State/ZIP Code Phon e Number [facility] [phone] documented in this encounter Visit Diagnoses Diagnosis Type 2 diabetes mellitus without complic ation, without long-term current use of insulin (HRC) - Primary documented in this encounter Care Teams Pebble Mill Operator Relationship Specialty Start Date End Date Alisha Kimball MD PCP - General 07/08/05 [address] [place] [address] documented as of this encounter
--- OUTSIDE RECORDS SUMMARY | 2022-04-07 07:22 | XMS_ITS | Encounter Summary ---
:1955 Author Organization [facility] Address [address] [place] [address] Care Team Providers Name Role Phone Alisha Kimball MD Primary Care Provider Reason for Visit Reason Comments Routine Eye Exam RAMIN 01/19 . Patient s tates no visual changes or problems. States that she do es use systane for dry eyes. Has some allergies. Using otc re aders. Diabetic Exam, Yearly BS-controlled with oral meds . BS-105 this AM. Last A1C 6.7 11/2018. [id number] Encounter Details Date Type Department Care Team Description 01/24/2019 Office Visit [facility] Eric Keller, OD Diabetes type 2, no ocular involvement ( HRC) (Primary Dx); [address] [place] [address] [place], [place] [phone] Social History Tobacco Use Types Packs/Day Years Used Date Smoking Tobacco: Never Smokeless Tobacco: Never Alcohol Use Standard Drinks/Week Comments No 0 (1 standard drink = 0.6 oz pure alcoho l) Sex Assigned at Date Recorded Not on file documented as of this encounter Patient Instructions Patient InstructionsEric Keller, RAJEEV - 01/24/2019 10:00 AM CDT No diabetic eye disease. Healthy stable eyes overall Return 1 year documented in this encounter Progress Notes Eric Keller, RAJEEV - 01/24/2019 10:00 AM CDT HPI Chief Complaint Patient presents with ??? Routine Eye Exam RAMIN 01/19 . Patient states no visual changes or problems. States that she does use systane for dry eyes. Has some allergies. Using otc readers. ??? Diabetic Exam, Yearly BS-controlled with oral meds. BS-105 this AM. Last A1C 6.7 11/2018. [id number] Routine Eye Exam Loc Velasco is a 63 y.o. year old female here for a routine eye exam. Diabetes is Type II (adult) and is managed by oral meds. Hgb A1c (%) Date Value 05/23/2018 8.2 (H) 11/26/2017 7.7 (H) 03/04/2017 7.8 (H) Hemoglobin A1C (%) Date Value 12/02/2018 6.7 (H) Point of Care A1c (%) Date Value 07/28/2018 7.5 (H) Assessment 1) Diabetic patient without retinopathy 2) Presbyopia OU Plan Spectacle Prescription: see script Return to clinic in 1 year(s) Eric Keller OD documented in this encounter Plan of Treatment Not on filedocumented as of this encounter Visit Diagnoses Diagnosis Diabetes type 2, no ocular involvement ( HRC) - Primary Presbyopia documented in this encounter Care Teams Chemical Treatment Operator Relationship Specialty Start Date End Date Alisha Kimball MD PCP - General 07/08/05 [address] [place] [address] documented as of this encounter
--- OUTSIDE RECORDS SUMMARY | 2022-04-07 07:22 | XMS_ITS | Encounter Summary ---
:1955 Author Organization [facility] Address [address] [place] [address] Care Team Providers Name Role Phone Alisha Kimball MD Primary Care Provider Reason for Visit Reason Comments DIZZINESS VOMITING Encounter Details Date Type Department Care Team Description 08/21/2018 Nurse Triage Careline Unassigned, DIZZINESS; VOMITING [address] Provider [place], [place] [address] [place] [address] [place] [address] Social History Tobacco Use Types Packs/Day Years Used Date Smoking Tobacco: Never Smokeless Tobacco: Never Alcohol Use Standard Drinks/Week Comments No 0 (1 standard drink = 0.6 oz pure alcoho l) Sex Assigned at Date Recorded Not on file documented as of this encounter Nursing Notes Brandee Granger, RN - 08/21/2018 8:23 AM CST Verified patient identity using three identifiers: Yes Situation/Background (brief explanation of current symptoms/situation): Pt has had vertigo since yesterday morning, also has some right ear pressure and vomited once this morning. Pt is unable to walk without assistance. Denies any 911 symptoms. Reviewed with patient pertinent medical history(as it related to the call): Yes Reviewed with patient pertinent medications (as they relate to call): Yes Reviewed with patient pertinent allergies (as they relate to call): No Reason for Disposition ??? SEVERE dizziness (vertigo) (e.g., unable to walk without assistance) Answer Assessment - Initial Assessment Questions 1. DESCRIPTION: Describe your dizziness. With head movement. everything gets swirly 2. VERTIGO: Do you feel like either you or the room is spinning or tilting? Swirly. 3. LIGHTHEADED: Do you feel lightheaded? (e.g., somewhat faint, woozy, weak upon standing) Denies 4. SEVERITY: How bad is it? Can you walk? - MILD - Feels unsteady but walking normally. - MODERATE - Feels very unsteady when walking, but not falling; interferes with normal activities (e.g., school, work) . - SEVERE - Unable to walk without falling (requires assistance). Severe 5. ONSET: When did the dizziness begin? Yesterday morning 6. AGGRAVATING FACTORS: Does anything make it worse? (e.g., standing, change in head position) Worse today than it was yesterday. 7. CAUSE: What do you think is causing the dizziness? Unsure 8. RECURRENT SYMPTOM: Have you had dizziness before? If so, ask: When was the last time? What happened that time? Denies 9. OTHER SYMPTOMS: Do you have any other symptoms? (e.g., headache, weakness, numbness, vomiting, earache) Pressure on right side, vomited. Protocols used: DIZZINESS - [id number] Plan: Pt to be seen in the ER. Pt verbalizes understanding and agrees with plan. Advised patient/caller to call back CareLine if there are further questions or concerns or to be seen if situation becomes emergent. The CareLine is available 25/01. Brandee Granger RN 08/21/2018, 8:34 AM OYMENT EDUCATIONAL COORD Cheyenne Gutierrez - 08/21/2018 8:21 AM CST Verified patient identity using three identifiers: Yes Caller's relationship to patient: Self At which care system or clinic is the patient normally seen? [facility] Symptoms Describe the reason for call/symptoms (include location and duration if applicable): Last two days have been experiencing dizziness. Feel a little pressure on left side of ear. This morning felt very dizzy, and has vomiting this morning. Plan:Caller transferred directly to CareLine nurse. OYMENT EDUCATIONAL COORD documented in this encounter Plan of Treatment Not on filedocumented as of this encounter Visit Diagnoses Not on filedocumented in this encounter Care Teams Hoof And Shoe Inspector Relationship Specialty Start Date End Date Alisha Kimball MD PCP - General 07/08/05 [address] [place] [address] documented as of this encounter
--- OUTSIDE RECORDS SUMMARY | 2022-04-07 07:22 | XMS_ITS | Encounter Summary ---
:1955 Author Organization [facility] Address [address] [place] [address] Care Team Providers Name Role Phone Carroll Kimball MD Primary Care Provider Reason for Visit Reason Comments Refill metFORMIN XR (GLUCOPHAGE XR) 500 MG 24 hour release tablet [Pharmacy Med Name: METFORMIN HCL ER 500 MG TABL ET] Encounter Details Date Type Department Care Team Description 07/03/2019 Refill [facility] Carroll Kimball MD Refill (metFORMIN XR Practice [address] (GLUCOPHAGE XR) 500 MG [address] [place] [address] 24 hour release tablet [place], [place] [id number] [Pharmacy Med Name: [phone] METFORMIN HCL ER 500 MG TABLET]) Social History Tobacco Use Types Packs/Day Years Used Date Smoking Tobacco: Never Smokeless Tobacco: Never Alcohol Use Standard Drinks/Week Comments No 0 (1 standard drink = 0.6 oz pure alcoho l) Sex Assigned at Date Recorded Not on file documented as of this encounter Nursing Notes Erlinda Dickerson RN - 07/03/2019 11:38 AM CST per standing order Erlinda Dickerson RN BODY REPAIR TEACHER Interface, Out Surescripts Prov Query - 07/03/2019 1:51 AM CST metFORMIN XR (GLUCOPHAGE XR) 500 MG 24 hour release tablet [Pharmacy Med Name: METFORMIN HCL ER 500 MG TABLET] Metformin -> Refill x 3 months (courtesy refill. overdue for an office visit) Last qualifying visit: 12/12/2018 (in [facility]) Next scheduled visit: None Last ordered by CARROLL KIMBALL: 02/01/2019 (152 days ago) QTY: 360, Refills: 1, Sig: take 4 tabletsby mouth daily with breakfast. (unchanged) Cr: 1.02 mg/dL on 12/02/2018 Powered by [employer], Reference: [id number], 07/03/2019 1:51:36 AM LEORA, Pool: ARNOLD REFILL CAITLYN ([id number]) BODY REPAIR TEACHER documented in this encounter Plan of Treatment Not on filedocumented as of this encounter Visit Diagnoses Not on filedocumented in this encounter Care Teams Cellophane Worker Relationship Specialty Start Date End Date Carroll Kimball MD PCP - General 07/08/05 [address] [place] [address] documented as of this encounter
--- OUTSIDE RECORDS SUMMARY | 2022-04-07 07:22 | XMS_ITS | Encounter Summary ---
:1955 Author Organization [facility] Address [address] [place] [address] Care Team Providers Name Role Phone Alisha Kimball MD Primary Care Provider Encounter Details Date Type Department Care Team Description 08/21/2018 Partner ED External to [facility], Provider DIZZINESS Social History Tobacco Use Types Packs/Day Years [...] on filedocumented in this encounter Care Teams Transformation Lead Relationship Specialty Start Date End Date Alisha Kimball MD PCP - General 07/08/05 [address] [place] [id number] documented as of this encounter
--- OUTSIDE RECORDS SUMMARY | 2022-04-07 07:22 | XMS_ITS | Encounter Summary ---
:1955 Author Organization [facility] Address [address], [place] [address] Care Team Providers Name Role Phone Alisha Kimball MD Primary Care Provider Reason for Visit Reason Comments Dental Hygiene cc Encounter Details Date Type Department Care Team Description 10/11/2018 Office Visit [facility] [address]ina Gu[address] [address] [place] [address] Dental Hygiene (cc) Dentistry [place], Ex[place] [address] [place], [place] [address] Social History Tobacco Use Types Packs/Day Years Used Date Smoking Tobacco: Never Smokeless Tobacco: Never Alcohol Use Standard Drinks/Week Comments No 0 (1 standard drink = 0.6 oz pure alcoho l) Sex Assigned at Date Recorded Not on file documented as of this encounter Last Filed Vital Signs Vital Sign Reading Time Taken Comments Blood Pressure 144/80 10/11/2018 10:07 AM CDT Pulse 83 10/11/2018 10:07 AM CDT Temperature - - Respiratory Rate - - Oxygen Saturation - - Inhaled Oxygen Concentration - - Weight - - Height - - Body Mass Index - - documented in this encounter Patient Instructions Patient InstructionsKesha Guaman - 10/11/2018 10:00 AM CDT Your next hygiene recall is due: 04/09/2019 YOUR PERSONAL DENTAL RISK REPORT Caries (Tooth Decay) Risk Periodontal (Gum) Disease Risk Oral Cancer Risk low mod high low mod high low elevated ^ ^ ^ Your Risk Level: LOW You currently have no risk factors for caries (tooth decay). How to Maintain Your Low Risk: Congratulations on your low risk for tooth decay. Making healthy life style choices including brushing twice a day; daily flossing; and healthy dietary choices should help you maintain this low risk. Your Risk Level: LOW Your Risk Factors: Diagnosed with either Type I or Type II diabetes. How to Maintain Your Low Risk: Congratulations on your low risk for gum disease. Making healthy life style choices including brushing twice a day; daily flossing; and not using tobacco should help you maintain this low risk. Your Risk Level: LOW Your Risk Factors: Incidence of oral cancer increases with age. How to Maintain your Low Risk: Congratulations on your low risk for oral cancer. Making healthy life style choices such as not using tobacco and low to moderate alcohol use should help you maintain this low risk. Loc, we look forward to seeing you at your next visit! Thank you for choosing [facility]. documented in this encounter Progress Notes Jamaal Cleveland DDS - 10/11/2018 10:00 AM CDT RECALL EXAM NOTE Loc is a 63 y.o. female who presents for Dental Hygiene (cc) CHART REVIEW: Reviewed health history, dental history, problem list, periodontal charting and radiographs with the patient. SOFT TISSUE, HEAD AND NECK EXAM: Lips: normal Tongue: normal Palate: normal Throat: normal Floor of the mouth: normal Mucosa: normal Head and neck: normal TMD EVALUATION: Palpation Pain: None Joint Sounds: None Pain with Range of Motion: None OCCLUSAL EXAMINATION: Unchanged COSMETIC CONCERNS: Patient's Perception: acceptable Dentist's Perception: acceptable TREATMENT REVIEW AND FOLLOW-UP: Discussed the dental findings, prognosis and treatment options with the patient and they expressed understanding. All questions were answered and informed consent was obtained. Recommended Recall: Examination in 8 months; Recall prophy in 4 months. Planned Recall: Examination in 8 months; Recall prophy in 4 months. Next Planned Visit: 4 month prophylaxis no exam Jamaal Cleveland DDS 10/11/2018, 10:37 AM Completed dental procedures in this visit ??? PROPHYLAXIS-ADULT RECALL ??? PERIODIC ORAL EVALUATION --End of Note-- Kesha Guaman - 10/11/2018 10:00 AM CDT HYGIENE PROPHY NOTE COLLABORATIVE AGREEMENT: The patient consents to have charting and prophylaxis by the dental hygienist performed with the understanding that this care is not a substitute for an examination by a dentist. PRESENTATION: Oral Hygiene: normal Plaque: generalized; moderate; supra-gingival Calculus: localized; light; supra-gingival and mandibular anterior Stain: none Bleeding: generalized; moderate Gingival tissue: inflamed Mucogingival concerns: present gingivitis ACTIVITIES: OHI, hand scale, essential selective polishing and flossed all contacts PATIENT EDUCATION: caries risk assessment, OHI, oral cancer risk and periodontal risk NEXT RECALL VISIT: Hygiene Prophy with exam Recommend annita Guaman 10/11/2018, 10:50 AM Completed dental procedures in this visit ??? PROPHYLAXIS-ADULT RECALL ??? PERIODIC ORAL EVALUATION --End of Note-- documented in this encounter Plan of Treatment Not on filedocumented as of this encounter Procedures Procedure Name Priority Date/Time Associated Diagnosis Comme nts PERIODIC ORAL EVALUATION Routine 10/11/2018 10:00 AM Gingiviti s CDT PROPHYLAXIS-ADULT RECALL Routine 10/11/2018 10:00 AM Gingiviti s CDT documented in this encounter Visit Diagnoses Diagnosis Gingivitis - Primary Chronic gingivitis, plaque induced documented in this encounter Care Teams Firebreak Cutter Relationship Specialty Start Date End Date Alisha Kimball MD PCP - General 07/08/05 [address] [place] [address] documented as of this encounter
--- OUTSIDE RECORDS SUMMARY | 2022-04-07 07:22 | XMS_ITS | Encounter Summary ---
:1955 Author Organization [employer] Address [address] [place] [address] Care Team Providers Name Role Phone Carroll Kimball MD Primary Care Provider Encounter Details Date Type Department Care Team Description 12/16/2018 Lab Visit [facility] Type 2 diabetes mellitus [address] [facility] without complication, [place], [place] [address] without long-term current [phone] use of insulin (HRC) Social History Tobacco Use Types Packs/Day Years Used Date Smoking Tobacco: Never Smokeless Tobacco: Never Alcohol Use Standard Drinks/Week Comments No 0 (1 standard drink = 0.6 oz pure alcoho l) Sex Assigned at Date Recorded Not on file documented as of this encounter Progress Notes Carroll Kimball MD - 12/16/2018 8:00 AM CDT Addended by: CARROLL KIMBALL on: 12/19/2018 09:32 AM Modules accepted: Orders documented in this encounter Plan of Treatment Not on filedocumented as of this encounter Procedures Procedure Name Priority Date/Time Associated Diagnosis Comme nts ALBUMIN/CREAT RATIO Routine 12/16/2018 7:55 AM Type 2 diabetes Results for this CDT mellitus without procedure a re in complication, the results without long-term section. current use of insulin (HRC) documented in this encounter Results (ABNORMAL) Microalbumin/Creatinine Ratio (12/16/2018 7:55 AM CDT) [facility] Method Time Signature Albumin, 64.8 mg/L 12/16/2018 [facility] Urine, Random 4:17 PM CDT [facility] Creatinine, 209 >20 mg/dL 12/16/2018 [facility] Urine, Random 4:17 PM CDT [facility] Albumin/Creati 31 (H) <30 mg/g 12/16/2018 [facility] nine Ratio, 4:17 PM CDT [facility] Urine, Random Specimen Anatomical Collection Method Collection Time Receive d Time (Source) Location / / Volume Laterality Urine,random 12/16/2018 7:55 AM 9 7:55 CDT AM CDT Carroll Kimball MD LAB_1 Performing Organization Address City/State/ZIP Code Phon e Number [facility] [address] [address] documented in this encounter Visit Diagnoses Diagnosis Type 2 diabetes mellitus without complic ation, without long-term current use of insulin (HRC) documented in this encounter Care Teams Inter Fold Roll Cutter Relationship Specialty Start Date End Date Carroll Kimball MD PCP - General 07/08/05 [address] [place] [address] documented as of this encounter
--- OUTSIDE RECORDS SUMMARY | 2022-04-07 07:22 | XMS_ITS | Encounter Summary ---
:1955 [facility] Address [address] [place] [address] Care Team Providers Name Role Phone Alisha Kimball MD Primary Care Provider Reason for Visit Reason Comments COVID Screening Encounter Details Date Type Department Care Team Description 11/09/2019 Telephone [facility] Alisha Steinberg MD COVID Screening [address] [facility]. [address] [facility] [place] [address] [place], [place] [id number] (Wo rk) Social History Tobacco Use Types Packs/Day Years Used Date Smoking Tobacco: Never Smokeless Tobacco: Never Alcohol Use Standard Drinks/Week Comments No 0 (1 standard drink = 0.6 oz pure alcoho l) Sex Assigned at Date Recorded Not on file documented as of this encounter Nursing Notes Ines Medel - 11/09/2019 12:50 PM CDT Initial Screening: Patient information Best number to contact patient: [phone] Reason for Visit: Other: F/U 1 YEAR DIABETIC APPT In the last 14 days have you had close contact with a person known to have COVID-19 or been instructed to self-isolate? No Are symptoms urgent/emergent? No Do you have any of these symptoms (fever greater than 100, cough, shortness of breath or difficulty breathing, sore throat, new loss of smell, or new loss of taste)?No - close encounter and follow regular process documented in this encounter Plan of Treatment Not on filedocumented as of this encounter Visit Diagnoses Not on filedocumented in this encounter Care Teams Copy Operator Relationship Specialty Start Date End Date Alisha Kimball MD PCP - General 07/08/05 [address] [place] [address] documented as of this encounter
--- OUTSIDE RECORDS SUMMARY | 2022-04-07 07:22 | XMS_ITS | Encounter Summary ---
:1955 [facility] Address [address] [place] [address] Care Team Providers Name Role Phone Carroll Kimball MD Primary Care Provider Reason for Visit Reason Comments Refill metoprolol succinate (TOPROL -XL) 200 MG 24 hour release tablet [Pharmacy Med Name: METOPROLOL SUCC ER 200 MG TAB] Encounter Details Date Type Department Care Team Description 01/23/2019 Refill [facility] Carroll Kimball MD Refill (metoprolol Practice [address] succinate (TOPROL-XL) [address] [place] [address] 200 MG 24 hour release [place], [place] [id number] tablet [Pharmacy Med [phone] Name: MET OPROLOL SUCC ER 200 MG TAB]) Social History Tobacco Use Types Packs/Day Years Used Date Smoking Tobacco: Never Smokeless Tobacco: Never Alcohol Use Standard Drinks/Week Comments No 0 (1 standard drink = 0.6 oz pure alcoho l) Sex Assigned at Date Recorded Not on file documented as of this encounter Nursing Notes Meaghan Briggs RN - 01/24/2019 11:19 AM CDT Refilled per standing order. Meaghan Briggs RN Interface, Out Surescripts Prov Query - 01/23/2019 7:41 AM CDT metoprolol succinate (TOPROL-XL) 200 MG 24 hour release tablet [Pharmacy Med Name: METOPROLOL SUCC ER 200 MG TAB] Miscellaneous - 12 Month Visit -> Refill x 12 months, qty: 90, refills: 3 (until due for an office visit) Last qualifying visit: 12/12/2018 (in [facility]) Next scheduled visit: None Last ordered by CARROLL KIMBALL: 05/04/2018 (264 days ago) QTY: 90, Refills: 2, Sig: take 1 tablet by mouth daily at bedtime (changed but equivalent) Powered by QA on Request, Reference: [id number], 01/23/2019 7:41:13 AM CDT, Pool: ARNOLD REFILL RN ([id number]) documented in this encounter Plan of Treatment Not on filedocumented as of this encounter Visit Diagnoses Diagnosis Essential hypertension (HRC) Unspecified essential hypertension documented in this encounter Care Teams Seasonal Package Handler Relationship Specialty Start Date End Date Carroll Kimball MD PCP - General 07/08/05 [address] [place] [address] documented as of this encounter
--- OUTSIDE RECORDS SUMMARY | 2022-04-07 07:22 | XMS_ITS | Encounter Summary ---
:1955 Author Organization [facility] Address [address] [place] [address] Care Team Providers Name Role Phone Alisha Kimball MD Primary Care Provider Reason for Referral Procedure/Equipment (Routine) - Incomplete Specialty Diagnoses / Procedures Referred By Contact Refer red To Contact Procedures Alisha Kimball MD MM Mammogram Screening [address] [place] [address] Referral ID Status Reason Start Date Expiration Date Visits V isits Requested Authorized [id number] Incomplete 02/10/2019 05/11/2020 1 1 Reason for Visit Procedure/Equipment (Routine) - Incomplete Specialty Diagnoses / Procedures Referred By Contact Refer red To Contact Procedures Alisha Kimball MD MM Mammogram Screening [place] [address] [place] [address] Referral ID Status Reason Start Date Expiration Date Visits V isits Requested Authorized [id number] Incomplete 02/10/2019 05/11/2020 1 1 Encounter Details Date Type Department Care Team Description 02/10/2019 Ancillary Procedure [facility] Mammography [address] [place] [address] Social History Tobacco Use Types [...] Associated Diagnosis Comme nts MM MAMMOGRAM Routine 02/10/2019 10:54 AM Results for this SCREENING BILAT W CDT procedure are in CAD the results section. documented in this encounter Results MM Mammogram Screening Bilat W CAD (02/10/2019 10:54 AM CDT) Anatomical Region Laterality Modality Breast Bilateral Mammography Specimen (Source) Anatomical Location Collection Method / Collectio n Time Received Time / Laterality Volume Impressions 02/13/2019 7:44 AM CDT : ACR BI-RADS Category 1: Negative RECOMMENDATION: Follow Up Imaging in 12 months The results and recommendations of this examination will be communicated to the patient. Narrative 02/13/2019 7:44 AM CDT MM MAMMOGRAM SCREENING BILAT W CAD performed on 02/10/19 Compared to: 01/18/2018 MM Mammogram Scr eening Bilat W CAD, 01/18/2017 MM Mammogram Screening Bilat W CAD, and 12/2015 MM Mammogram Screening Bilat W CAD FINDINGS: Bilateral screening mammogram was performed with the assistance of Computer-Aided Detection. The breasts are almost entirely fatty. There is no radiographic evidence of mal ignancy. ?? Alisha Kimball MD RAD MIKEY documented in this encounter Visit Diagnoses Not on filedocumented in this encounter Care Teams Cook Helper Relationship Specialty Start Date End Date Alisha Kimball MD PCP - General 07/08/05 [address] [place] [address] documented as of this encounter
--- OUTSIDE RECORDS SUMMARY | 2022-04-07 07:22 | XMS_ITS | Encounter Summary ---
:1955 Author Organization [facility] Address [address] [place] [address] Care Team Providers Name Role Phone Alisha Kimball MD Primary Care Provider Reason for Visit Reason Comments COVID Screening Encounter Details Date Type Department Care Team Description 01/01/2020 Telephone [facility] Alisha Steinberg MD COVID Screening [address] [place] [address] [place] [address] (Wo rk) Social History Tobacco Use Types Packs/Day Years Used Date Smoking Tobacco: Never Smokeless Tobacco: Never Alcohol Use Standard Drinks/Week Comments No 0 (1 standard drink = 0.6 oz pure alcoho l) Sex Assigned at Date Recorded Not on file documented as of this encounter Nursing Notes Marysol Mason - 01/01/2020 10:39 AM CDT Initial Screening: Patient information Best number to contact patient: [phone] Reason for Call: COVID Screening/Testing Request In the last 14 days have you had close contact with a person known to have COVID-19 or been instructed to self-isolate? No Are symptoms urgent/emergent? No Do you currently have any of these symptoms? None: Close the TE and Follow your normal workflow documented in this encounter Plan of Treatment Not on filedocumented as of this encounter Visit Diagnoses Not on filedocumented in this encounter Care Teams Boiler Reliner Relationship Specialty Start Date End Date Alisha Kimball MD PCP - General 07/08/05 [address] [place] [address] documented as of this encounter
--- OUTSIDE RECORDS SUMMARY | 2022-04-07 07:22 | XMS_ITS | Encounter Summary ---
:1955 Author Organization [facility] Address [address] [place] [address] Care Team Providers Name Role Phone Alisha Kimball MD Primary Care Provider Encounter Details Date Type Department Care Team Description 08/25/2018 Orders Only [facility] Audiology Primary/Referring, [address] [place], [place] [id number] Social History Tobacco Use Types Packs/Day Years Used Date Smoking Tobacco: Never Smokeless Tobacco: Never Alcohol Use Standard Drinks/Week Comments No 0 (1 standard drink = 0.6 oz pure alcoho l) Sex Assigned at Date Recorded Not on file documented as of this encounter Plan of Treatment Not on filedocumented as of this encounter Procedures Procedure Name Priority Date/Time Associated Comments Diagnosis AUDIOLOGY DIAGNOSTIC 08/25/2018 12:00 AM Results for this EEG TECHNOLOGIST procedure are i n the results section. documented in this encounter Results AUDIOLOGY DIAGNOSTIC (08/25/2018 12:00 AM EEG TECHNOLOGIST) Specimen (Source) Anatomical Location Collection Method / Collectio n Time Received Time / Laterality Volume 08/25/2018 Narrative This result has an attachment that is no t available. Phy No Primary/Referring DUMMY/OTHER/AR documented in this encounter Visit Diagnoses Not on filedocumented in this encounter Care Teams Photography Instructor Relationship Specialty Start Date End Date Alisha Kimball MD PCP - General 07/08/[address] [place], [place] [id number] documented as of this encounter
--- OUTSIDE RECORDS SUMMARY | 2022-04-07 07:22 | XMS_ITS | Encounter Summary ---
:1955 Author Organization [facility] Address [address] [place] [address] Care Team Providers Name Role Phone Alisha Kimball MD Primary Care Provider Encounter Details Date Type Department Care Team Description 12/02/2018 Lab Visit [facility] Type 2 diabetes mellitus [address] [facility] without complication, [place], [place] [address] without long-term current [phone] use of insulin (HRC) Social History Tobacco [...] Name Priority Date/Time Associated Diagnosis Comme nts LIPID PANEL AND Routine 12/02/2018 7:34 AM Type 2 diabetes Res ults for this DIRECT LDL(IF CDT mellitus without procedure are in NEEDED) complication, the results without long-term section. current use of insulin (HRC) BASIC METABOLIC Routine 12/02/2018 7:34 AM Type 2 diabetes Res ults for this PANEL CDT mellitus without procedure a re in complication, the results without long-term section. current use of insulin (HRC) HGB A1C Routine 12/02/2018 7:34 AM Type 2 diabetes Result s for this CDT mellitus without procedure a re in complication, the results without long-term section. current use of insulin (HRC) documented in this encounter Results (ABNORMAL) Basic Metabolic Panel (12/02/2018 7:34 AM CDT) Patholo gist Method Time Signature Sodium 138 136 - 145 12/02/2018 [facility] mmol/L 11:30 AM CDT [facility] Potassium 4.6 3.5 - 5.1 12/02/2018 [facility] mmol/L 11:30 AM CDT [facility] Chloride 104 98 - 109 12/02/2018 [facility] mmol/L 11:30 AM CDT C[facility] CO2 26 20 - 29 12/02/2018 [facility] mmol/L 11:30 AM CDT [facility] Anion Gap 8 7 - 16 12/02/2018 [facility] mmol/L 11:30 AM CDT [facility] Calcium 10.0 8.4 - 12/02/2018 [facility] 10.4 11:30 AM CDT C[facility] mg/dL BUN 28 (H) 7 - 26 12/02/2018 [facility] mg/dL 11:30 AM CDT [facility] Creatinine 1.02 0.55 - 12/02/2018 [facility] 1.02 11:30 AM CDT C[facility]AL [facility] mg/dL GFR, Estimated 58 (L) >60 12/02/2018 [facility] mL/min/1. 11:30 AM T [facility]AL [facility] 73m2 GFR, Est If >60 >60 12/02/2018 [facility] mL/min/1. 11:30 AM CDT [facility]AL [facility] Australian 73m2 Glucose 108 (H) 70 - 100 12/02/2018 [facility] mg/dL 11:30 AM T [facility] Comment: The given reference range is fo r the fasting state. Non-fasting reference range for glucose is 70 - 180 mg/dL. Hours Fasting 12 12/02/2018 11:30 AM T [facility] Specimen Anatomical Collection Method / Collection Time Recei dawn Time (Source) Location / Volume Laterality Blood Venipuncture / 12/02/2018 7:34 12/02/2018 7:34 Unknown AM CDT AM CDT Narrative [facility] - 12/02/2018 11:30 AM CDT The National Kidney Disease Education Pr ogram suggests measuring Cystatin C in patients with eGFRcrea of 45 to 59 ml/mi n/1.73^2 who do not have other markers of kidney damage (i.e. elevated urine Album in/Creatinine Ratio or a prior Cystatin C confirming the presence of chronic kidne y disease). Alisha Kimball MD LAB_1 Performing Organization Address [facility] Phon e Number [facility] [address] [address] [facility] [address] [place] [address], [place] Lipid Panel and Direct LDL(If Needed) (12/02/2018 7:34 AM CDT) [facility] [employer] Method Time Signature Cholesterol 167 0 - 199 12/02/2018 [facility] mg/dL 11:30 AM CDT [facility] Triglyceride 146 <=149 12/02/2018 [facility] mg/dL 11:30 AM CDT [facility] HDL Cholesterol 44 >=40 12/02/2018 [facility] mg/dL 11:30 AM CDT [facility] LDL, Calculated 94 <130 12/02/2018 [facility] mg/dL 11:30 AM CDT [facility] Non HDL Chol, 123 <=159 12/02/2018 [facility] Calculated mg/dL 11:30 AM CDT [facility] Cholesterol/HDL 3.8 12/02/2018 [facility] Ratio 11:30 AM CDT [facility] Hours Fasting 12 12/02/2018 [facility] 11:30 AM CDT Specimen Anatomical Collection Method / Collection Time Recei dawn Time (Source) Location / Volume Laterality Blood Venipuncture / 12/02/2018 7:34 12/02/2018 7:34 Unknown AM CDT AM CDT Alisha Kimball MD LAB_1 Performing Organization Address [facility] Phon e Number [facility] [address] [address] [facility] [address] [place] [address], [place] (ABNORMAL) Hgb A1C (12/02/2018 7:34 AM CDT) [facility] [employer] Method Time Signature Hemoglobin A1C 6.7 (H) <=5.6 % 12/02/2018 [facility] 12:44 PM CDT [facility] Specimen Anatomical Collection Method / Collection Time Recei dawn Time (Source) Location / Volume Laterality Blood Venipuncture / 12/02/2018 7:34 12/02/2018 7:34 Unknown AM CDT AM CDT Narrative [facility] - 12/02/2018 12:44 PM CDT For patients not previously diagnosed with diabetes: 5.7-6.4%: Increased risk for diabetes 6.5% and greater: Diagnostic for diabete s For patients diagnosed with diabetes: <8.0%: Goal of therapy for ages 18-75 Clinicians may recommend a higher or low er goal for specific individuals. Alisha Kimball MD LAB_1 Performing Organization Address City/State/ZIP Code Phon e Number [facility] [address] [address] documented in this encounter Visit Diagnoses Diagnosis Type 2 diabetes mellitus without complic ation, without long-term current use of insulin (HRC) documented in this encounter Care Teams Running Rigger Relationship Specialty Start Date End Date Alisha Kimball MD PCP - General 07/08/05 [address] [place] [address] documented as of this encounter
--- OUTSIDE RECORDS SUMMARY | 2022-04-07 07:22 | XMS_ITS | Encounter Summary ---
:1955 Author Organization [facility] Address [address] [place] [address] Care Team Providers Name Role Phone Alisha Kimball MD Primary Care Provider Reason for Visit Reason Comments Consult, New Patient vertigo started sat. went to ER [facility] Encounter Details Date Type Department Care Team Description 08/25/2018 Office Visit [facility] Margot Sow M D Perceived hearing changes (Primary Dx); [address] Sensorineural hearing loss ( SNHL) of both ears; [address] [place] [address] [place], [place] [phone] [address] Social History Tobacco Use Types Packs/Day Years Used Date Smoking Tobacco: Never Smokeless Tobacco: Never Alcohol Use Standard Drinks/Week Comments No 0 (1 standard drink = 0.6 oz pure alcoho l) Sex Assigned at Date Recorded Not on file documented as of this encounter Patient Instructions Patient InstructionsMilagro Fink CMA - 08/25/2018 10:00 AM CST Please call our clinic with any questions or concerns at [phone], option 3. [facility] HEALTH CASE MANAGER documented in this encounter Progress Notes Margot Sow MD - 08/25/2018 10:00 AM CST OTOLARYNGOLOGY NEWPATIENT CHIEF COMPLAINT: Chief Complaint Patient presents with ??? Consult, New Patient vertigo started sat. [facility] I was asked to see Loc Velasco by PATIENT SELF REFERRAL HPI: Loc Velasco is a 63 y.o. old female who presents for complaint of hearing changes and hearing loss and vertigo. She says she feels like everything is muffled and her hearing has worsened over the past several weeks. She says it is muffled like she has her fingers in the ears all the time. Shedid see her primary care provider who sent her to see us for the evaluation and treatment. The patient said about one week ago she had brief episodes of vertigo. It lasted only for a few minutes and then resolved by itself. She says she still has an imbalance sensation but she does not have the [id number]-[id number] spinning anymore. She said every time she turns her head she would have vertigo. When she stops turning the head the vertigo resolves. She did go to the emergency room and a thorough workup wasnegative. She was sent to see us for further evaluation and treatment. Allergies: Allergies Allergen Reactions ??? Sulfa Antibiotics Redness and Swelling PMHx: Past Medical History: Diagnosis Date ??? BP (high blood pressure) (HRC) ??? Diabetes (HRC) ??? Diabetes mellitus type II (HRC) 05/14/2010 ??? Diverticulosis of colon ??? Heart disease ??? Hypertension (HRC) ??? Normal delivery X 3 PSHx: Past Surgical History: Procedure Laterality Date ??? HYSTERECTOMY 1998 menorrhagia ??? OTHER - PROCEDURES 1998 [place] for stress incontinence FAMHx: Family History Problem Relation Age of Onset ??? Cancer, Ovary Maternal Grandmother 40's ??? Osteoporosis Maternal Grandmother ??? Cerebrovascular Disease Maternal Grandmother ??? Cancer, Ovary Mother 70's ??? Osteoporosis Mother ??? Diabetes, Type II Mother ??? Hypertension Mother ??? Hyperlipidemia Mother ??? Depression Mother ??? Hypertension Father ??? Coronary Artery Disease Father ??? Hyperlipidemia Father ??? ADHD Son ??? Thyroid Disorder Brother ?Graves disease ??? Diabetes, Type II Brother ??? Glaucoma Negative Family History ??? Macular Degeneration Negative Family History ??? Cancer, Breast Negative Family History SOHx: Social History Tobacco Use ??? Smoking status: Never Smoker ??? Smokeless tobacco: Never Used Substance Use Topics ??? Alcohol use: No ??? Drug use: No MEDS: Outpatient Medications Prior to Visit Medication Sig Dispense Refill ??? amLODIPine (NORVASC) 5 MG tablet TAKE 1 TABLET BY MOUTH DAILY 90 Tablet 2 ??? atorvastatin (LIPITOR) 10 MG tablet TAKE 1 TABLET BY MOUTH EVERY DAY (Patient taking differently: TAKE 1/2 TABLET BY MOUTH EVERY DAY) 90 Tablet 3 ??? blood glucose (ACCU-CHEK STACEY PLUS) test strip Use to test two times a day. Use as directed. Pharmacy dispense brand based on insurance. 200 Each 3 ??? blood glucose monitoring device Dispense 1 meter. 1 Each PRN ??? desoximetasone (TOPICORT) 0.25 % cream Apply to affected area twice daily for 1-2 weeks. Not forface. 60 g 1 ??? ELIQUIS 5 MG tablet TAKE 1 TABLET BY MOUTH TWICE A DAY 180 Tablet 3 ??? fluticasone (FLONASE) 50 MCG/ACT nasal solution Place 1 [place] into both nostrils daily. decreaseto 1 spray per nostril daily if symptoms controlled 16 g 0 ??? lancets (ACCU-CHEK FASTCLIX LANCETS) Testing blood sugars 1 time(s) a day. Pharmacist may substitute meter/supplies if insurance or patient requires specific equipment or model 102 Each 11 ??? losartan (COZAAR) 50 MG tablet TAKE 1 TABLET BY MOUTH EVERY DAY 90 Tablet 2 ??? magnesium 250 MG oral tablet Take 1 Tablet by mouth daily at bedtime. ??? meclizine (ANTIVERT) 12.5 MG tablet Take 12.5 mg by mouth three times a day as needed. ??? metFORMIN XR (GLUCOPHAGE XR) 500 MG 24 hour release tablet TAKE 4 TABLETS BY MOUTH DAILY WITH BREAKFAST (Patient taking differently: TAKE 2 TABLETS AM AND TAKE 2 TABLETS PM) 360 Tablet 0 ??? metoprolol succinate (TOPROL-XL) 200 MG 24 hour release tablet TAKE 1 TABLET BY MOUTH DAILY AT BEDTIME 90 Tablet 2 ??? neomycin-polymyxin B-hydrocortisone (CORTISPORIN) 3.5-21011-3 ear drop solution 3 Drops 4 times a day. ??? traZODone (AKA DESYREL) 50 MG tablet Take 0.5-2 Tabs by mouth daily at bedtime. 30 Tab 5 No facility-administered medications prior to visit. REVIEW OF SYSTEM: GENERAL/CONSTITUTIONAL: The patient denies fever, fatigue, weakness, or unexplained weight loss HEENT: HEAD: No headache. No history of head trauma EYES: No nystagmus, no conjunctivitis, no discharge or watery eyes. EARS: No drainage, positive for hearing changes, no pain, no pressure, no tinnitus, positive for vertigo. NOSE: No rhinorrhea, no postnasal drip, no epistaxis, no anosmia, no sneezing, or nasal obstruction, no sinus pain or pressure. MOUTH/THROAT: No hoarseness, no pharyngitis/tonsillitis, no odynophagia, no dysphagia, no blood in the saliva, no mouth lesions/ulcers, no dental caries. NECK: No neck pain, no neck swollen gland , no enlarge lymph nodes CARDIOVASCULAR: The patient denies chest pain, irregular heartbeats, sudden changes in heartbeat or palpitation. RESPIRATORY: The patient denies chronic dry cough, coughing up blood, repeated pneumonias, wheezing or night sweats. GASTROINTESTINAL: The patient denies decreased appetite, nausea, vomiting, vomiting blood or coffee ground material, diarrhea, constipation, gas. MUSCULOSKELETAL: The patient denies arm, buttock, thigh or calf cramps. No joint or muscle pain. SKIN: The patient denies easy bruising. Denies any skin lesions. NEUROLOGIC: The patient denies muscle spasm, loss of consciousness, sensitivity or pain in the handsand feet. HEMATOLOGIC/LYMPHATIC: The patient denies anemia, bleeding tendency or clotting tendency. PHYSICAL EXAM: GENERAL: She is a well-appearing well developed, well nourished female in no acute distress. She is breathing comfortably. Normal ability to communicate. Skin: no cutaneous lesions of concern. Neurologic: Alert and oriented x 3 and Cranial Nerves II - XII grossly intact HEENT: Head: Normal cephalic and atraumatic. Eyes: PERRL. Eyes are normal with no nystagmus. No visual disturbances, No double vision. Ears: Pinnas are normally formed bilaterally. EAC patent and without mass or lesions . Both sides are completely impacted cerumen. After informedconsent cerumen was removed today. Please see the procedure note below Tympanic membranes are intact with no evidence of perforation, drainage, or effusion. No retractionon either side. Nose: She has healthy-appearing nasal mucosa. Naris is patent. No mass or lesions noted. Septum is relative straight Inferior turbinate normal size Mouth: Oral cavity and oropharynx is clear with no mucosal lesions noted. Bimanual oral exam shows no evidence of mass Dentition is good Midline Uvula and no cleft Salivary: Salivary glands normal in size and location. Neck: Neck is supple with no abnormal sized lymph nodes noted. Thyroid is normal size and mobile. Facial function: Bilateral symmetrical facial nerve motion bilateral House Brackman scale I/ Hematologic/Lymphatic: No lymphadenopathy palpable. Respiratory: Respiration even, chest symmetrical with bilateral expansion. Psych: Her affect is normal. Audiogram shows: I personally reviewed the audiogram with the patient. Patient has bilateral mild high-frequency hearing loss. Type A tympanogram bilaterally The Marlen-Hallpike was positive for geometric nystagmus; a finding that is consistent with benign positional vertigo PROCEDURE: (Bilateral cerumen removal) CERUMINECTOMY UNDER Binocular Microscopy: Cerumen was removed from both ears utilizing several speculums, suction tips, alligator forceps and loop curettes under otologic microscope. Large plug of cerumen impaction was removed succesfully. After ceruminectomy, tympanic membranes bilaterally intact. The procedure took 15 minutes. IMPRESSION: ICD-10-CM 1. Perceived hearing changes H90.5 2. Sensorineural hearing loss (SNHL) of both ears H90.3 3. Bilateral impacted cerumen H61.23 [id number] Removal Impact Cerumen 1/Both Ears 4. Vertigo PLAN: I advised additional mass or lesions. She did have complete cerumen impaction and after informed consent cerumen was removed. The patient has just a very mild high-frequency hearing loss. She does not need a hearing aid. The patient does have vertigo which is consistent with a nine positional vertigo. We talked about treatment options and the patient would like to try that home first. I advised her she does not resolvecompletely within two weeks then she was advised to call me so I consider see physical therapy for an Isauro maneuver. Risks and benefits and side effects of the medications were thoroughly explained to the patient. Theside effects were meticulously explained to the patient and she indicated understanding. Margot Sow MD 08/25/2018, 1:04 PM This note created using speech-recognition software and may contain unintended word substitutions. [facility] HEALTH CASE MANAGER documented in this encounter Plan of Treatment Not on filedocumented as of this encounter Visit Diagnoses Diagnosis Perceived hearing changes - Primary Other disorders of ear Sensorineural hearing loss (SNHL) of bot h ears Bilateral impacted cerumen Impacted cerumen documented in this encounter Care Teams Senior Medical Technologist Relationship Specialty Start Date End Date Alisha Kimball MD PCP - General 07/08/05 [address] [place] [address] documented as of this encounter
--- OUTSIDE RECORDS SUMMARY | 2022-04-07 07:22 | XMS_ITS | Encounter Summary ---
:1955 Author Organization [facility] Address [address] [place] [address] Care Team Providers Name Role Phone Alisha Kimball MD Primary Care Provider Reason for Visit Reason Comments Blood Pressure, low LIGHTHEADEDNESS Encounter Details Date Type Department Care Team Description 09/21/2018 Nurse Triage [facility] Alisha Kimball, Blood Pr essure, low; Practice [facility] [address] [facility]. [address] [place] [address] [place], [place] [phone] [facility] Social History Tobacco Use Types Packs/Day Years Used Date Smoking Tobacco: Never Smokeless Tobacco: Never Alcohol Use Standard Drinks/Week Comments No 0 (1 standard drink = 0.6 oz pure alcoho l) Sex Assigned at Date Recorded Not on file documented as of this encounter Nursing Notes Tara Lzoano RN - 09/21/2018 3:48 PM CDT Patient informed and agrees with plan. Tara Lozano RN 09/21/2018, 3:50 PM Alisha Kimball MD - 09/21/2018 3:44 PM CDT Please ask her to stop the amlodipine and let me know if her blood pressure does not come up above 100 most of the time or if she notes blood pressures higher than 139/89. Thanks! Alisha Kimball MD Tara Lozano RN - 09/21/2018 3:22 PM CDT Patient/home care coordinator request: Input needed ongoing symptoms Specific Request: patient states her B/P has been low like this for months so does not feel she needs SDA and occasional dizziness when first rising in am. She prefers to DC one of her B/P medications.Also to note has lost weight with [facility] weight loss program. Clinician sign order and route to RN Reason for Disposition ??? [1] Systolic BP 90-110 AND [2] taking blood pressure medications AND [3] dizzy, lightheaded or weak Answer Assessment - Initial Assessment Questions 1. BLOOD PRESSURE: What is the blood pressure? Did you take at least two measurements 5 minutes apart? 91/73 2. ONSET: When did you take your blood pressure? This am 3. HOW: How did you obtain the blood pressure? (e.g., visiting nurse, automatic home BP monitor) In S office and at [facility] 4. HISTORY: Do you have a history of low blood pressure? What is your blood pressure normally? 160/105 5. MEDICATIONS: Are you taking any medications for blood pressure? If yes: Have they been changedrecently? yes 6. PULSE RATE: Do you know what your pulse rate is? no 7. OTHER SYMPTOMS: Have you been sick recently? Have you had a recent injury? no 8. : Is there any chance you are ? When was your last menstrual period? na Protocols used: LOW BLOOD [id number] Vero Robin - 09/21/2018 3:03 PM CDT Symptoms [Associate Professor Of Economics/Appt Center: If this call is after 3 p.m., communicate to patient: If we are not able to get back to you by the end of the day and your symptoms worsen, please contact the Careline [phone] OR at .] [Associate Professor Of Economics/Appt Center: Refer to Symptoms Indicating Need for Triage list to determine urgency level.] Describe your symptoms (if pain, include location): Patient is in a weight loss program and loosing weight, she gets her blood pressure checked weekly, last reading 09/16/18 her blood pressure was 91/73 patient states the reading before was the same. Patient states sometimes she feels lightheaded, declined triage. Patient would like to know if provider can review her blood pressure medications and hopes too possibly stop a few of her medications. Patient states her medications should be up to date. Patient will schedule an appointment if recommended, please advise When did they start? month What have you tried at home (please specify medication name, if any)? n/a Have you recently been seen for this? No [Associate Professor Of Economics/Appt Center: Add/verify patient preferred pharmacy is highlighted in blue in the Pharmacy Selection under Meds & Orders] Is it okay to leave a detailed message on your voicemail? Yes Is there anything else I can help you with today? Vero Robin Please warm transfer/route to RNs for further triage documented in this encounter Plan of Treatment Not on filedocumented as of this encounter Visit Diagnoses Not on filedocumented in this encounter Care Teams Dry Cell Assembly Machine Tender Relationship Specialty Start Date End Date Alisha Kimball MD PCP - General 07/08/05 [address] [place] [address] documented as of this encounter
--- OUTSIDE RECORDS SUMMARY | 2022-04-07 07:22 | XMS_ITS | Encounter Summary ---
:1955 Author Organization [facility] Address [address] [place] [address] Care Team Providers Name Role Phone Alisha Kimball MD Primary Care Provider Reason for Visit Reason Comments COVID Screening Encounter Details Date Type Department Care Team Description 01/01/2020 Telephone [facility] Alisha Steinberg MD COVID Screening [address] [place] [address] [place] [address] (Wo rk) Social History Tobacco Use Types Packs/Day Years Used Date Smoking Tobacco: Never Smokeless Tobacco: Never Alcohol Use Standard Drinks/Week Comments No 0 (1 standard drink = 0.6 oz pure alcoho l) Sex Assigned at Date Recorded Not on file documented as of this encounter Nursing Notes Dallas Sanchez - 01/01/2020 10:14 AM CDT Initial Screening: Patient information Best number to contact patient: [phone] Reason for Call: COVID Screening/Testing Request In [...] on filedocumented in this encounter Care Teams Putaway Driver Relationship Specialty Start Date End Date Alisha Kimball MD PCP - General 07/08/05 [address] [place] [address] documented as of this encounter
--- OUTSIDE RECORDS SUMMARY | 2022-04-07 07:22 | XMS_ITS | Encounter Summary ---
:1955 Author Organization [facility] Address [address] [place] [address] Care Team Providers Name Role Phone Alisha Kimball MD Primary Care Provider Reason for Referral Consult/Transfer Care (Routine) - Closed Specialty Diagnoses / Procedures Referred By Contact Refer red To Contact Diagnoses Essential hypertension (HRC) Alisha Kimball MD [address] [place] [address] Referral ID Status Reason Start Date Expiration Date Visits Requ ested Visits Authorized [id number] Closed 12/12/2018 03/12/2020 1 1 Scheduling Instructions Your provider has recommended an appoint ment to follow up on your high blood pressure. It is best to schedule your ap pointment on the way out of the clinic. If you prefer, you may call your primary ca re clinic or a roof plumber will contact you to assist you in setting up this appointmen t. There are no co-pays for nurse blood pressure checks or medication therapy frankie ceja (clinical pharmacist). Reason for Visit Reason Comments ROUTINE HEALTH MAINTENANCE Encounter Details Date Type Department Care Team Description 12/12/2018 Office Visit [facility] Alisha Kimball Encounte r for routine adult health examination without abnormal findings (Primary Dx); Practice MD Type 2 diabetes mellitus without complic ation, without long-term current use of insulin (HRC); [address] Paroxysmal atrial fibrillation (HRC); [place] [address] [place] [address] Essential hypertension [phone] Social History Tobacco Use Types Packs/Day Years Used Date Smoking Tobacco: Never Smokeless Tobacco: Never Alcohol Use Standard Drinks/Week Comments No 0 (1 standard drink = 0.6 oz pure alcoho l) Sex Assigned at Date Recorded Not on file documented as of this encounter Last Filed Vital Signs Vital Sign Reading Time Taken Comments Blood Pressure 155/85 12/12/2018 8:35 AM CDT Pulse 52 12/12/2018 8:35 AM CDT Temperature 36.3 ??C (97.4 ??F) 12/12/2018 8:02 AM CDT Respiratory Rate 16 12/12/2018 8:02 AM CDT Oxygen Saturation - - Inhaled Oxygen Concentration - - Weight 83.5 kg (184 lb) 12/12/2018 8:02 AM CDT Height 162.6 cm (5' 4) 12/12/2018 8:02 AM CDT Body Mass Index 31.58 12/12/2018 8:02 AM CDT documented in this encounter Patient Instructions Patient InstructionsSabina Oneill Gen - 12/12/2018 8:00 AM CDT Images from the original note were not included. Well Visit, Women 50 to 65: Care [...] can you learn more? 1. Go to https://Dec[employer] Rocket/[employer]OS or [employer]. 2. Enter Y074 in the search box. Current as of: June 16, 2018 Content Version: 12.0 ?? [id number] [employer]. Care instructions adapted under license by your healthcare professional. If you have questions about a medical condition or this instruction, always ask your healthcare professional. [employer] disclaims any warranty or liability for your use of this information. documented in this encounter Progress Notes Alisha Kimball MD - 12/12/2018 8:00 AM CDT Routine Health Maintenance: Historical: Loc Velasco is a 63 y.o. old female Chief Complaint Patient presents with ??? ROUTINE HEALTH MAINTENANCE Current concerns: None. Working hard on weight loss and exercise and losing weight. Hgb A1c (%) Date Value 05/23/2018 8.2 (H) 11/26/2017 7.7 (H) Hemoglobin A1C (%) Date Value 12/02/2018 6.7 (H) Point of Care A1c (%) Date Value 07/28/2018 7.5 (H) States has her blood pressure checked every week at [facility] and normal. No medication side effects.Wonders if she can get off any of her medications. No bleeding with the Eliquis. Occasional palpitations. No loss of consciousness, chest pain, shortness of breath. Good exercise tolerance without symptoms. No foot symptoms. Yearly eye exams. Sleeping well most nights and has not taken trazodone for months. Menses are: absent- hysterectomy History of abnormal pap tests? Yes; Age: years ago Diet, fruits/ vegetables: 5 or more servings each day Present exercise habits: 30 minutes or more, >5 times per week Do you have any concerns about your hearing? no Have you: - felt little interest or pleasure in doing things, for a few days or more in the last 2 weeks? OR - felt down, depressed or hopeless for a few days or more in the last 2 weeks? YES ; PHQ9 was administered today with a total score of PHQ-9 12/12/2018 PHQ9 Score - Smartform (Adult) 2 . See flowsheet for details. Do you feel unsafe at home? no I have reviewed the medical, surgical, family and social histories. Observed: BP (!) 158/102 Pulse (!) 55 Temp 97.4 ??F (36.3 ??C) (Tympanic) Resp 16 Ht 5' 4 (1.626 m) Wt 184 lb (83.5 kg) BMI 31.58 kg/m?? General: Appears stated age, alert and comfortable HEENT: normal eyes, ears, throat, oropharynx Neck: supple. No LAD. No thyromegaly or mass. Lungs: clear to auscultation, no wheezes or rales Breasts: no skin changes, no dominant masses, no axillary lymphadenopathy CV: regular rate and rhythm, normal S1 and S2 without murmur or click Abd: Soft, non-tender, no masses, no hepatomegaly or splenomegaly. : not examined. Skin: no significant abnormalities noted Extremities: no cyanosis, clubbing, or edema. Assessment/Plan: ICD-10-CM 1. Encounter for routine adult health examination without abnormal findings Z00.00 2. Type 2 diabetes mellitus without complication, without long-term current use of insulin (HRC) E11.9 Diabetic Foot Check (Ep101) Microalbumin/Creatinine Ratio Patient counseled: -protection from UV light -calcium and vitamin D recommendations 1. Controlled type 2 diabetes. Since ongoing weight loss planned, could trial decreasing her metformin to 3 tabs daily and check glucoses and see how she does. Encouraged to stay on the atorvastatin. A1C in 6 months. 2. Hypertension. Not at goal today. Since normal at [facility], continue to watch. She will follow up on the nurse schedule in 2 weeks. 3. Atrial fibrillation. No ongoing symptoms. Continue Eliquis. Alisha Kimball MD documented in this encounter Plan of Treatment Scheduled Referrals Name Type Priority Associated Diagnoses Order S chedule Hypertension Follow Up Referral Routine Essential hyperten bobbi Ordered: 12/12/2018 ([id number]) documented as of this encounter Results (ABNORMAL) Microalbumin/Creatinine Ratio (12/16/2018 7:55 AM CDT) [facility] gist Method Time Signature Albumin, 64.8 mg/L 12/16/2018 [facility] Urine, Random 4:17 PM CDT [facility] Creatinine, 209 >20 mg/dL 12/16/2018 [facility], Random 4:17 PM CDT [facility] Albumin/Creati 31 (H) <30 mg/g 12/16/2018 [facility] nine Ratio, 4:17 PM CDT [facility] Urine, Random Specimen Anatomical Collection Method Collection Time Receive d Time (Source) Location / / Volume Laterality Urine,random 12/16/2018 7:55 AM 9 7:55 CDT AM CDT Alisha Kimball MD LAB_1 Performing Organization Address City/State/ZIP Code Phon e Number [facility] [address] [phone] documented in this encounter Visit Diagnoses Diagnosis Encounter for routine adult health exami nation without abnormal findings - Primary Type 2 diabetes mellitus without complic ation, without long-term current use of insulin (HRC) Paroxysmal atrial fibrillation (HRC) Atrial fibrillation Essential hypertension (HRC) Unspecified essential hypertension documented in this encounter Care Teams Screen Printing Machine Operator Helper Relationship Specialty Start Date End Date Alisha Kimball MD PCP - General 07/08/[address] [place] [address] documented as of this encounter
--- OUTSIDE RECORDS SUMMARY | 2022-04-07 07:22 | XMS_ITS | Encounter Summary ---
:1955 Author Organization [email or web address] Address [address] [place] [address] Care Team Providers Name Role Phone Alisha Kimball MD Primary Care Provider Reason for Visit Reason Comments BP CHECK,NURSE SHOT,FLU Encounter Details Date Type Department Care Team Description 03/28/2019 Nursing Visit [facility] ial hypertension; Department Encounter for immunization [address] [place], [place] [address] Social History Tobacco Use Types Packs/Day Years Used Date Smoking Tobacco: Never Smokeless Tobacco: Never Alcohol Use Standard Drinks/Week Comments No 0 (1 standard drink = 0.6 oz pure alcoho l) Sex Assigned at Date Recorded Not on file documented as of this encounter Last Filed Vital Signs Vital Sign Reading Time Taken Comments Blood Pressure 107/86 03/28/2019 8:50 AM CDT Pulse 93 03/28/2019 8:50 AM CDT Temperature - - Respiratory Rate - - Oxygen Saturation - - Inhaled Oxygen Concentration - - Weight - - Height - - Body Mass Index - - documented in this encounter Patient Instructions Patient InstructionsJanneth Stahl LPN - 03/28/2019 8:50 AM CDT Images from the original note were not included. High Blood Pressure: Care Instructions Overview It's [...] When should you call for help? Call anytime you think you may need emergency care. This may mean having symptoms that suggest thatyour blood pressure is causing a serious heart or blood vessel problem. Your blood pressure may be over 180/120. ?? For example, call if: ? You have symptoms of a [...] movement in your face, arm, or leg, especiallyon only one side of your body. ? [...] as: ? Severe headache. ? Blurry vision. ?? Watch closely for changes in your health, [...] can you learn more? 1. Go to https://Justworks/[employer]Integr[employer] Tracking or HW/[employer] Tracking. 2. Enter X567 in the search box. Current as of: January 23, 2018 Content Version: 12.0 ?? [id number] [employer]. Care instructions adapted under license by your healthcare professional. If you have questions about a medical condition or this instruction, always ask your healthcare professional. [employer] disclaims any warranty or liability for your use of this information. documented in this encounter Progress Notes Janneth Stahl LPN - 03/28/2019 8:50 AM CDT S Loc Velasco here today for follow up blood pressure check. Medications were reviewed: currently prescribed and taking blood pressure medication(s) O BP 107/86 Pulse 93 Blood pressures recorded: BP Readings from Last 1 Encounters: 03/28/19 0850 107/86 A Blood pressure at goal. P Follow-up blood pressure annually or as previously recommended by PCP. Janneth Stahl LPN 03/28/2019, 9:17 AM Loc Velasco here for injection(s). ordered per standing order . See orders. Contraindications and side effects discussed with patient patient verbalized understanding of risks, possible side effects, and benefits of the injection and gave permission to administer the stated immunization(s). No precautions or contraindications noted. Tolerated injection well. See immunization/injection report for administration documentation. Janneth Stahl LPN documented in this encounter Nursing Notes Denice Franz RN - 03/28/2019 8:50 AM CDT Clinician managed. Due to: No plan of care noted 12/12/[address] Kimball: 2. Hypertension. Not at goal today. Since normal at [facility], continue to watch. She will follow up on the nurse schedule in 2 weeks. Last BP: BP Readings from Last 3 Encounters: 12/12/18 (!) 155/85 10/11/18 (!) 144/80 07/28/18 117/78 Denice Franz RN 03/27/2019, 4:29 PM documented in this encounter Plan of Treatment Not on filedocumented as of this encounter Visit Diagnoses Diagnosis Essential hypertension (HRC) Unspecified essential hypertension Encounter for immunization Need for other specified prophylactic va ccination against single bacterial disease documented in this encounter Care Teams Tile Power Shear Operator Relationship Specialty Start Date End Date Alisha Kimball MD PCP - General 07/08/05 [address] [place] [address] documented as of this encounter
--- OUTSIDE RECORDS SUMMARY | 2022-04-07 07:22 | XMS_ITS | Encounter Summary ---
:1955 Author Organization [facility] Address [address] [place] [address] Care Team Providers Name Role Phone Alisha Kimball MD Primary Care Provider Encounter Details Date Type Department Care Team Description 08/18/2019 Office Visit [facility] Dyspn [facility]a on exertion Cardiac Non-Invasive Lab (Primary Dx) [address] [place] [address] Social History Tobacco Use Types Packs/Day Years Used Date Smoking Tobacco: Never Smokeless Tobacco: Never Alcohol Use Standard Drinks/Week Comments No 0 (1 standard drink = 0.6 oz pure alcoho l) Sex Assigned at Date Recorded Not on file documented as of this encounter Patient Instructions Patient InstructionsFernando Colon - 08/18/2019 8:00 AM CST You had a test called: Exercise stress echocardiogram. This test will help your care provider team determine if you have narrowing in the arteries to your heart muscle, if you have any irregular heart rhythm or if you have any problems with your heart valves or other heart structures. For this test you received a contrast agent called Optison. This agent improves the accuracy of the test to detect potential heart problems. Your test will be interpreted by a physician later today. Your test results will be available to Janice Gill PA-C within one week. Please follow up with [facility] if you have not received your test results. GATION ATTORNEY ASSOCIATE documented in this encounter Progress Notes Fernando Colon - 08/18/2019 8:00 AM CST Test ordered Treadmill stress echocardiogram Was today's stress test appointment changed? No. Primary Care Provider: Alisha Kimball MD. Ordering provider: EMILY Garcia Chief complaint: Dyspnea on exertion Trigger: exertional Duration: a few seconds Relieved by: random Last episode: three days ago Medical History Past Medical History: Diagnosis Date ??? BP (high blood pressure) (HRC) ??? Diabetes (HRC) ??? Diabetes mellitus type II (HRC) 05/14/2010 ??? Diverticulosis of colon ??? Heart disease ??? Hypertension (HRC) ??? Normal delivery X 3 ??? Vertigo Surgical History Past Surgical History: Procedure Laterality Date ??? HYSTERECTOMY 1998 menorrhagia ??? OTHER - PROCEDURES 1998 [place] for stress incontinence Family History Family History Problem Relation Age of Onset ??? Cancer, Ovary Maternal Grandmother 40's ??? Osteoporosis Maternal Grandmother ??? Cerebrovascular Disease Maternal Grandmother ??? Cancer, Ovary Mother 70's ??? Osteoporosis Mother ??? Diabetes, Type II Mother ??? Hypertension Mother ??? Hyperlipidemia Mother ??? Depression Mother ??? Cancer, Uterine Mother ??? Hypertension Father ??? Coronary Artery Disease Father ??? Hyperlipidemia Father ??? Heart Attack Father ??? ADHD Son ??? Thyroid Disorder Brother ?Graves disease ??? Schizophrenia Brother ??? Diabetes, Type II Brother ??? Glaucoma Negative Family History ??? Macular Degeneration Negative Family History ??? Cancer, Breast Negative Family History Problem List Patient Active Problem List Diagnosis ??? Mallet finger ??? Family history of osteoporosis ??? Hypercholesterolemia ??? Adenomatous polyp of colon ??? Elevated liver enzymes ??? Type 2 diabetes mellitus without complication, without long-term current use of insulin (HRC) ??? Paroxysmal atrial fibrillation (HRC) Tobacco History Social History Tobacco Use Smoking Status Never Smoker Smokeless Tobacco Never Used Medications Current Outpatient Medications Medication Sig Dispense Refill ??? atenolol (TENORMIN) 100 MG tablet Take 1 Tablet by mouth daily. 90 Tablet 3 ??? atorvastatin (LIPITOR) 10 MG tablet Take 0.5 Tablets by mouth daily. 45 Tablet 3 ??? blood glucose (ACCU-CHEK STACEY PLUS) test strip Use to test two times a day. Use as directed. Pharmacy dispense brand based on insurance. 200 Each 3 ??? blood glucose monitoring device Dispense 1 meter. 1 Each PRN ??? ELIQUIS 5 MG tablet TAKE 1 TABLET BY MOUTH TWICE A DAY 180 Tablet 3 ??? fluticasone (FLONASE) 50 MCG/ACT nasal solution Place 1 Bud into both nostrils daily. decreaseto 1 spray per nostril daily if symptoms controlled 16 g 0 ??? lancets (ACCU-CHEK FASTCLIX LANCETS) Testing blood sugars 1 time(s) a day. Pharmacist may substitute meter/supplies if insurance or patient requires specific equipment or model 102 Each 11 ??? losartan (COZAAR) 50 MG tablet Take 1 Tablet by mouth daily. 90 Tablet 3 ??? magnesium 250 MG oral tablet Take 1 Tablet by mouth daily at bedtime. ??? metFORMIN XR (GLUCOPHAGE XR) 500 MG 24 hour release tablet Take 4 Tablets by mouth daily with breakfast. 360 Tablet 3 No current facility-administered medications for this visit. Beta jomar held last 24 hours: YES Beta jomar held last 48 hours: NO Pre-procedure evaluation of patient's current pain: Pain Location: none Miscellaneous screening evaluation: Yes: contraindications for optison: no O Cholesterol Date Value 12/02/2018 167 mg/dL 11/26/2017 162 mg/dl HDL (mg/dl) Date Value 11/26/2017 41 HDL Cholesterol (mg/dL) Date Value 12/02/2018 44 LDL, Calc. (mg/dl) Date Value 11/26/2017 96 LDL, Calculated (mg/dL) Date Value 12/02/2018 94 Triglyceride Date Value 12/02/2018 146 mg/dL 11/26/2017 123 mg/dl Potassium (mmol/L) Date Value 12/02/2018 4.6 11/26/2017 4.3 Hemoglobin (g/dl) Date Value 05/21/2017 12.9 No results found for: TROP Finger stick glucose test: N/A. Was there a pre-test consultation? No. A Test completed, results filed separately. Is there a post-test consultation? No. P Follow up Care: Patient will follow up with Janice Taveras at [facility]. Discharge Instructions: follow up with Brainne Tainter Test done with magazine supervisor present: no 22 gauge IV catheter inserted by WP in the left antecubital. IV site appears: normal with intact catheter. IV D/C'd by:.MR. Fernando Nicholas Thiernobrissa Janice Reed PA-C - 08/18/2019 8:00 AM CST Please let Melia know great news, her stress did not show any evidence of ischemia/infarction suggesting blockages. She has excellent functional capacity for her age. Is she still experiencing SOB episodes? Janice Gill PA-C GATION ATTORNEY ASSOCIATE Angie Fong RN - 08/18/2019 8:00 AM CST Called Melia with results and feedback from Janice. On occasion, she continues the SOB episodes. They are short in duration and random in occurrence. Angie Fong RN 08/18/2019, 2:29 PM Janice Reed PA-C - 08/18/2019 8:00 AM CST We had discussed considering a heart monitor depending on the frequency of her symptoms. If she would like to pursue we can order, otherwise, she should continue to monitor her symptoms and follow up with PCP if do not improve or worsen. Janice Gill PA-C Angie Watkins RN - 08/18/2019 8:00 AM CST Left another message for Melia to call us back to discuss her preferences based on Janice's recommendations. Angie Fong RN 08/28/2019, 2:52 PM GATION ATTORNEY ASSOCIATE documented in this encounter Plan of Treatment Not on filedocumented as of this encounter Procedures Procedure Name Priority Date/Time Associated Comments Diagnosis EJECTION FRACTION Routine 08/18/2019 8:14 AM Resu lts for this LITIGATION ATTORNEY ASSOCIATE procedure are i n the results section. CARDIAC STRESS Routine 08/18/2019 8:14 AM Dyspnea on Results for this ECHOCARDIOGRAM LITIGATION ATTORNEY ASSOCIATE exertion procedure are in the results section. documented in this encounter Results EJECTION FRACTION (08/18/2019 8:14 AM LITIGATION ATTORNEY ASSOCIATE) P athologist Signature EF 60 % PROSOLV EF test type ECHO PROSOLV Specimen (Source) Anatomical Collection Method Collection Time Re ceived Time Location / / Volume Laterality 08/18/2019 8:14 AM LITIGATION ATTORNEY ASSOCIATE Janice Gill PA-C [facility] HUMAN PROJECTILE/RH Performing Organization Address City/State/ZIP Code Phon e Number PROS[facility]V [address] [place] [address] CARDIAC TREADMILL STRESS ECHOCARDIOGRAM (08/18/2019 8:14 AM LITIGATION ATTORNEY ASSOCIATE) Specimen (Source) Anatomical Collection Method Collection Time Re ceived Time Location / / Volume Laterality 08/18/2019 8:14 AM LITIGATION ATTORNEY ASSOCIATE Narrative [facility] - 08/18/2019 10:40 AM LITIGATION ATTORNEY ASSOCIATE Contrast:Optison 3.0 ml ?Contrast Allergy:NO Indication: SOB ? CONCLUSION: Patient exercised 8 minutes 52 seconds on a Pratik protocol. ?? Excellent functional aerobic capacity. ?? No chest pain with exercise. ?? Negative ECG test for diagnostic ST dep ression. ?? Normal Stress Echo test, no evidence fo r ischemia. ?? Left Ventricular Ejection Fraction: 60 % ?? ICD Codes: History: ??HTN, Hyperlipidemia, DM, Obe sity, Family History of ? CAD ?? Cardiac Medications:Beta-jomar, Lipid lowering agent, ? Angiotens in Receptor Jomar, Anticoagulant, ? Diabetes medication Medications held in past 24 hours -All meds held ?? IV Information: IV Inserted By: ?Sue Piper, RN IV Site: ? Left Antecub ital IV Site Appearance: ??Normal post mini ter ?removal IV Size: ? 22G IV Removed By: ? Fernando Ruegem er, ExP IV Other: ? Treadmill Stress Protocol Exercise Duration: 8 min ?52 s ? METS: ??11.5 Resting heart rate:66 ? Peak HR: 13 3 85.8 ?% max pred HR ?DP ?? 2 0216 ?= Resting BP: 140 ?? / 88 ? Peak BP: ??152 ?? / 86 Reasons for Termination:Fatigue Symptoms: ??No symptoms Protocol:Pratik ECG Analysis Resting ECG - NSR with rare PACs Exercise ECG- No significant ST segment change. Arrhythmia - ??PACs REST ECHO Analysis Two or more contiguous regional [place] w ere unable to be seen ?? on pre-contrast images, therefore Optis on was used on this ?? study.Globally normal resting LV systol ic function with no ?? regional wall motion abnormalities. Nor mal resting LVEF. STRESS ECHO Analysis Normal augmentation of global function post exercise with no ?? regional wall motion abnormalities. ?Kraig Chamberlain MD ??(Electronically Signed) ??Final Date:18 August 2019 10:40 Procedure Note Kraig Chamberlain MD - 08/18/2019Forma tting of this note might be different from the original. Contrast:Optison 3.0 ml Contrast Allerg y:NO Indication: SOB CONCLUSION: Patient exercised 8 minutes 52 seconds on a Pratik protocol. Excellent functional aerobic capacity. No chest pain with exercise. Negative ECG test for diagnostic ST dep ression. Normal Stress Echo test, no evidence fo r ischemia. Left Ventricular Ejection Fraction: 60 % ICD Codes: History: HTN, Hyperlipidemia, DM, Obesi ty, Family History of CAD Cardiac Medications:Beta-jomar, Lipid lowering agent, Angiotensin Receptor Jomar, Anticoagu lant, Diabetes medication Medications held in past 24 hours -All meds held IV Information: IV Inserted By: Sue Gonzalez RN IV Site: Left Antecubital IV Site Appearance: Normal post cathete r removal IV Size: 22G IV Removed By: Fernando Colon, ExP IV Other: Treadmill Stress Protocol Exercise Duration: 8 min 52 s METS: 11. 5 Resting heart rate:66 Peak HR: 133 85.8 % [place] [id number] = Resting BP: 140 / 88 Peak BP: 152 / 86 Reasons for Termination:Fatigue Symptoms: No symptoms Protocol:Pratik ECG Analysis Resting ECG - NSR with rare PACs Exercise ECG- No significant ST segment change. Arrhythmia - PACs REST ECHO Analysis Two or more contiguous regional [place] w ere unable to be seen on pre-contrast images, therefore Optis on was used on this study.Globally normal resting LV systol ic function with no regional wall motion abnormalities. Nor mal resting LVEF. STRESS ECHO Analysis Normal augmentation of global function post exercise with no regional wall motion abnormalities. Kraig Chamberlain MD (Electronically Signed) Final Date:18 August 2019 10:40 Janice Gill PA-C [facility] STRESS/RH Performing Organization Address City/State/ZIP Code Phon e Number [facility] [address] [place] [address] documented in this encounter Visit Diagnoses Diagnosis Dyspnea on exertion - Primary Other dyspnea and respiratory abnormalit y documented in this encounter Care Teams Cardiology Coordinator Relationship Specialty Start Date End Date Alisha Kimball MD PCP - General 07/08/05 [address] [place] [address] documented as of this encounter
--- OUTSIDE RECORDS SUMMARY | 2022-04-07 07:22 | XMS_ITS | Encounter Summary ---
:1955 [facility] Address [address] [place] [address] Care Team Providers Name Role Phone Carroll Avalos MD Primary Care Provider Reason for Visit Reason Comments Refill atorvastatin (LIPITOR) 10 MG tablet [Pharmacy Med Name: ATORVASTATIN 10 MG TABLET] Encounter Details Date Type Department Care Team Description [facility] Refill (atorvastatin [facility] [address] (LIPITOR) 10 [place] [address] [place] [address] [Pharmacy Med Name: [phone] (Wo rk) ATORVASTATIN 10 MG TABLET]) Social History Tobacco Use Types Packs/Day Years Used Date Smoking Tobacco: Never Smokeless Tobacco: Never Alcohol Use Standard Drinks/Week Comments No 0 (1 standard drink = 0.6 oz pure alcoho l) Sex Assigned at Date Recorded Not on file documented as of this encounter Nursing Notes Interface, Out Marketing Technology Conceptsscripts Prov Query - 08/16/2019 12:23 PM CST The patient chart could not be locked at 08/16/2019 12:23 PM by [facility] in order to process this refill request. Please try re-routing to attempt to retry processing through [facility]. ESSOR OF RELIGIOUS STUDIES Mickie Welsh RN - 08/16/2019 12:21 PM CST Telemetry Tech discussed with pt. Pt states she needs both metformin and atorvastatin refilled. Pt states she takes 5mg of atorvastatin daily. Pt is going out of town for 2 weeks to [place] but then will schedule follow up with pcp when she returns. Mickie Welsh RN 08/16/2019, 12:23 PM ESSOR OF RELIGIOUS STUDIES Meaghan Briggs RN - 08/16/2019 12:00 PM CST Further Assistance Needed on Refill from Nursing/Triage Please clarify how patient is taking medication. order states pt taking differently Next steps: Nursing/Triage to complete refill as appropriate. Requested Prescriptions Pending Prescriptions Disp Refills ??? atorvastatin (LIPITOR) 10 MG tablet [Pharmacy Med Name: ATORVASTATIN 10 MG TABLET] 90 Tablet 1 Sig: TAKE 1 TABLET BY MOUTH EVERY DAY Meaghan Briggs RN 08/16/2019, 12:00 PM ESSOR OF RELIGIOUS STUDIES Interface, Out Surescripts Prov Query - 08/15/2019 6:31 PM CST atorvastatin (LIPITOR) 10 MG tablet [Pharmacy Med Name: ATORVASTATIN 10 MG TABLET] Miscellaneous - 12 Month Visit -> Refill x 6 months, qty: 90, refills: 1 (until due for an office visit) Last qualifying visit: 12/12/2018 ([facility] Next scheduled visit: None Last ordered by CARROLL AVALOS K: 02/01/2018 (560 days ago) QTY: 90, Refills: 3, Sig: take 1 tablet by mouth every day (unchanged) Powered by [facility], Reference: [id number], 08/15/2019 6:31:46 PM PROFESSOR OF RELIGIOUS STUDIES, Pool: ARNOLD REFILL RN ([id number]) ESSOR OF RELIGIOUS STUDIES documented in this encounter Plan of Treatment Not on filedocumented as of this encounter Visit Diagnoses Not on filedocumented in this encounter Care Teams Restorative Coordinator Relationship Specialty Start Date End Date Carroll Avalos MD PCP - General 07/08/05 [address] [place] [address] documented as of this encounter
--- OUTSIDE RECORDS SUMMARY | 2022-04-07 07:22 | XMS_ITS | Encounter Summary ---
:1955 Author Organization [facility] Address [address] [place] [address] Care Team Providers Name Role Phone Alisha Kimball MD Primary Care Provider Reason for Visit Reason Comments Medication Questions Encounter Details Date Type Department Care Team Description 07/01/2019 Telephone [facility] Alisha Kimball MD Medication Questions Practice [address] [place] [address] [place] [address] [phone] Social History Tobacco Use Types Packs/Day Years Used Date Smoking Tobacco: Never Smokeless Tobacco: Never Alcohol Use Standard Drinks/Week Comments No 0 (1 standard drink = 0.6 oz pure alcoho l) Sex Assigned at Date Recorded Not on file documented as of this encounter Nursing Notes Anitra Bustillos CMA - 07/03/2019 12:05 PM CST Pt informed and agreed w/ plan. OYEE SERVICE OFFICER Alisha Kimball MD - 07/03/2019 11:21 AM CST OK. See orders. Call with problems or if increased palpitations. Thanks! Alisha Kimball MD OYEE SERVICE OFFICER Anitra Bustillos CMA - 07/03/2019 9:53 AM CST Pt states she would like to try the atenolol please. Pended. OYEE SERVICE OFFICER Alisha Kimball MD - 07/03/2019 8:48 AM CST If I change her to metoprolol tartrate, will need to take it twice daily. The atenolol will be once daily. Does she have a preference? Thanks! Alisha Kimball MD OYEE SERVICE OFFICER Marysol Edward - 07/01/2019 3:54 PM CST ALTERNATIVE REQUESTED:PT PAYING $36 FOR METOP. PT REQUESTING LOWER OUT OF POCKET COST ATENOLOL 100 MG TABLET $9 - METOPROLOL TARTRATE 100 MG TAB $9 OYEE SERVICE OFFICER documented in this encounter Plan of Treatment Not on filedocumented as of this encounter Visit Diagnoses Diagnosis Paroxysmal atrial fibrillation (HRC) - P rimary Atrial fibrillation documented in this encounter Care Teams Ski Tow Operator Relationship Specialty Start Date End Date Alisha Kimball MD PCP - General 07/08/05 [address] [facility] [place] [address] documented as of this encounter
--- OUTSIDE RECORDS SUMMARY | 2022-04-07 07:22 | XMS_ITS | Encounter Summary ---
:1955 Author Organization [facility] Address [address] [address] Care Team Providers Name Role Phone Carroll Avalos MD Primary Care Provider Reason for Visit Reason Comments Refill metFORMIN XR (GLUCOPHAGE XR) 500 MG 24 hour release tablet [Pharmacy Med Name: METFORMIN ER 500 MG TABLET] Encounter Details Date Type Department Care Team Description [facility] (metFORMIN XR 205 [facility] [address] (GLUCOPHAGE XR) 500 [place] [address] [place] [address] 24 hour release tablet [phone] (Wo rk) [Pharmacy Med Name: METFORMIN ER 500 MG TABLET]) Social History Tobacco Use Types Packs/Day Years Used Date Smoking Tobacco: Never Smokeless Tobacco: Never Alcohol Use Standard Drinks/Week Comments No 0 (1 standard drink = 0.6 oz pure alcoho l) Sex Assigned at Date Recorded Not on file documented as of this encounter Nursing Notes Senia Cramer RN - 10/24/2018 9:23 AM CDT per standing order Senia Cramer RN Interface, Out Surescripts Prov Query - 10/21/2018 12:52 AM CDT metFORMIN XR (GLUCOPHAGE XR) 500 MG 24 hour release tablet [Pharmacy Med Name: METFORMIN ER 500 MG TABLET] Diabetes - Biguanides -> HgbA1C is not needed if being used for polycystic ovary treatment -> Refill x 3 months (until due for a(n) Cr check) Last qualifying visit: 12/07/2017 (in [facility]) Next scheduled visit: None Last ordered by CARROLL AVALOS K: 07/25/2018 (88 days ago) QTY: 360, Refills: 0, Sig: take 4 tablets by mouth daily with breakfast (unchanged) Cr: 0.86 mg/dL on 11/26/2017 HBA1C: 7.5 % on 07/28/2018 Powered by [employer], Reference: [id number], 10/21/2018 12:52:35 AM CDT, Pool: ARNOLD AMEZQUITA RN ([id number]) Interface, Out [employer] Query - 10/21/2018 12:52 AM CDT The following lab order(s) may be associated with the Result Note below: AST Notes Recorded by Dallas Nguyen RN on 11/26/2017 at 12:44 PM Letter sent with normal AST/ALT lab results. Dallas Nguyen RN 11/26/2017, 12:44 PM Interface, Out [employer] Query - 10/21/2018 12:52 AM CDT The following lab order(s) may be associated with the Result Note below: HGB A1C,POINT OF CARE Notes recorded by Marysol Carey, RN on 07/28/2018 at 4:44 PM SPRING MACHINE OPERATOR Discussed during appointment with Dr. Bolden. Marysol Carey RN 07/28/2018, 4:44 PM documented in this encounter Plan of Treatment Not on filedocumented as of this encounter Visit Diagnoses Not on filedocumented in this encounter Care Teams Federal Mediation Commissioner Relationship Specialty Start Date End Date Carroll Avalos MD PCP - General 07/08/05 [address] [place] [address] documented as of this encounter
--- OUTSIDE RECORDS SUMMARY | 2022-04-07 07:22 | XMS_ITS | Encounter Summary ---
:1955 Author Organization [facility] Address [address] [place] [address] Care Team Providers Name Role Phone Alisha Kimball MD Primary Care Provider Reason for Referral Consult/Transfer Care (Routine) - Closed Specialty Diagnoses / Procedures Referred By Contact Refer red To Contact Diagnoses Type 2 diabetes mellitus without complication, without long-term current use of insulin (HRC) Alisha Kimball MD [address] [place] [address] Referral ID Status Reason Start Date Expiration Date Visits Requ ested Visits Authorized [id number] Closed 07/26/2018 10/25/2019 1 1 Scheduling Instructions Your provider has recommended an appoint ment with [facility]. You may call [phone] to schedule your a ppointment. If you prefer, a manufacturing scheduler will contact you within the next 3 business d ays to assist you in setting up this appointment. We suggest you call your [facility] insurance company about your coverage and benefits for this appointment. ODS TIME ANALYST Reason for Visit Reason Comments QUESTIONS, GENERAL Orders Needed Encounter Details Date Type Department Care Team Description 07/26/2018 Telephone [facility] Alisha Kimball MD QUESTIONS, GENERAL; Practice [address] Orders Needed [address] [place] [address] [place] [address] [phone] Social History Tobacco Use Types Packs/Day Years Used Date Smoking Tobacco: Never Smokeless Tobacco: Never Alcohol Use Standard Drinks/Week Comments No 0 (1 standard drink = 0.6 oz pure alcoho l) Sex Assigned at Date Recorded Not on file documented as of this encounter Nursing Notes Floresita Morris LPN - 07/26/2018 1:46 PM CST Pt is notified of all info below. Floresita Morris LPN 07/26/2018, 1:47 PM ODS TIME ANALYST Alisha Kimball MD - 07/26/2018 1:43 PM CST Order placed for Endocrinology. Alisha Kimball MD ODS TIME ANALYST Maria E Castillo LPN - 07/26/2018 10:58 AM CST Please review/sign pended order and route response back to Leslie BARRETT SLP TEACHER.Thank you, Maria E Castillo LPN ODS TIME ANALYST Radha Malik - 07/26/2018 9:17 AM CST Miscellaneous Questions [Appt Center: If this call is after 3 p.m., communicate to patient: If we are not able to get back to you by the end of the day and your symptoms worsen please contact the Careline at [phone] OR at .] Is this a question/concern or an FYI? Question/Concern What is your question or concern? PT IS WONDERING IF THEY NEED AN ORDER TO BE SEEN W/ A DIABETIC SPECIALIST Have you recently been seen for this? No Is it okay to leave a detailed message on your voicemail? Yes Radha Malik Is the patient requesting a referral for a provider or clinic outside of our family of care? (Ex. [facility]) No Orders - All Orders [Appt Center: If this call is after 3 p.m., communicate to patient: If we are not able to get back to you by the end of the day and your symptoms worsen please contact the Careline at [phone] OR at .] What order (Lab, Radiology, Specialty, DME, etc) is being requested? DIABETIC SPECIALIST Why is this order being requested? MANAGE DIABETES, PT RECEIVED A LETTER THROUGH THE MAIL TO BE SEEN W/ STEEL TIER. Have you been seen recently for this concern? No [Appt Center:If patient was seen at an outside location, please obtain records] Is it okay to leave a detailed message on your voicemail? Yes [Appt Center: Instruct patient to check with insurance company for coverage] Is there anything else I can help you with today? Radha Malik ODS TIME ANALYST documented in this encounter Plan of Treatment Scheduled Referrals Name Type Priority Associated Diagnoses Order [facility] Endocrinology Referral Routine Type 2 diabetes Ordered: Consult-Adults mellitus without complication, without long-term current use of insulin (HRC) documented as of this encounter Visit Diagnoses Diagnosis Type 2 diabetes mellitus without complic ation, without long-term current use of insulin (HRC) - Primary documented in this encounter Care Teams R D Intern Relationship Specialty Start Date End Date Alisha Kimball MD PCP - General 07/08/05 [address] [place] [address] documented as of this encounter
--- OUTSIDE RECORDS SUMMARY | 2022-04-07 07:22 | XMS_ITS | Encounter Summary ---
:1955 Author [facility] Address [address], [place] [address] Care Team Providers Name Role Phone Alisha Kimball MD Primary Care Provider Reason for Visit Reason Comments Dental Hygiene cc none Encounter Details Date Type Department Care Team Description 02/09/2019 Office Visit [facility] Regina Guaman Dental Hygiene (cc Dentistry [address] [facility] none) [address] [place] [address] [id number] Social History Tobacco Use Types Packs/Day Years Used Date Smoking Tobacco: Never Smokeless Tobacco: Never Alcohol Use Standard Drinks/Week Comments No 0 (1 standard drink = 0.6 oz pure alcoho l) Sex Assigned at Date Recorded Not on file documented as of this encounter Last Filed Vital Signs Vital Sign Reading Time Taken Comments Blood Pressure - - Pulse 112 02/09/2019 9:05 AM CDT Temperature - - Respiratory Rate - - Oxygen Saturation - - Inhaled Oxygen Concentration - - Weight - - Height - - Body Mass Index - - documented in this encounter Progress Notes Kesha Guaman - 02/09/2019 9:00 AM CDT HYGIENE PROPHY NOTE (NO EXAM) REASON FOR VISIT/CHIEF COMPLAINT: Loc is a 64 y.o. female who presents for Dental Hygiene (cc none) COLLABORATIVE AGREEMENT: The patient consents to have charting and prophylaxis by the dental hygienist performed with the understanding that this care is not a substitute for an examination by a dentist. CHART REVIEW: Reviewed with patient: Medical history, Dental history, Problem list, Periodontal charting and Radiographs PRESENTATION: Oral Hygiene: Good Plaque: Generalized, moderate supra-gingival Calculus: None Stain: None Bleeding: Generalized light Gingival tissue: Normal localized gingivitis Mucogingival concerns: Absent ACTIVITIES: Hand scale, Essential selective polishing and Flossed all contacts PATIENT EDUCATION: OHI and Fluoride rinse TREATMENT REVIEW AND FOLLOW-UP: Discussed the Prognosis and Treatment options with the patient. All questions answered and informed consent was obtained. Recommended Recall Interval: Examination in 8 months : Recall prophy in 4 months. Planned Recall Interval: Examination in 8 months : Recall prophy in 4 months. Next Planned Hygiene Visit: Hygiene Prophy with exam Kesha Guaman 02/09/2019, 9:38 AM Completed dental procedures in this visit ??? PROPHYLAXIS-ADULT RECALL --End of Note-- documented in this encounter Plan of Treatment Not on filedocumented as of this encounter Procedures Procedure Name Priority Date/Time Associated Diagnosis Comme nts PROPHYLAXIS-ADULT Routine 02/09/2019 9:00 AM CDT Gingivitis RECALL documented in this encounter Visit Diagnoses Diagnosis Gingivitis - Primary Chronic gingivitis, plaque induced documented in this encounter Care Teams Customer Servicer Relationship Specialty Start Date End Date Alisha Kimball MD PCP - General 07/08/05 [address] [place] [address] documented as of this encounter
--- OUTSIDE RECORDS SUMMARY | 2022-04-07 07:22 | XMS_ITS | Encounter Summary ---
:1955 Author [facility] Address [address] [place] [address] Care Team Providers Name Role Phone Carroll Kimball MD Primary Care Provider Reason for Visit Reason Comments Refill ELIQUIS 5 MG tablet [Pharmac y Med Name: ELIQUIS 5 MG TABLET] Encounter Details Date Type Department Care Team Description 06/15/2019 Refill [facility] Carroll Kimball MD Refill (ELIQUIS 5 MG Practice [address] tablet [Pharmacy Med [address] [place] [address] Name: ELIQUIS 5 [place] [address] TABLET]) [phone] Social History Tobacco Use Types Packs/Day Years Used Date Smoking Tobacco: Never Smokeless Tobacco: Never Alcohol Use Standard Drinks/Week Comments No 0 (1 standard drink = 0.6 oz pure alcoho l) Sex Assigned at Date Recorded Not on file documented as of this encounter Nursing Notes Interface, Out Surescripts Prov Query - 06/15/2019 10:22 AM CST ELIQUIS 5 MG tablet [Pharmacy Med Name: ELIQUIS 5 MG TABLET] None Exists -> Medication cannot be delegated. Last qualifying visit: 12/12/2018 (in [facility]) Next scheduled visit: None Last ordered by CARROLL KIMBALL: 06/16/2018 (364 days ago) QTY: 180, Refills: 3, Sig: take 1 tablet by mouth twice a day (unchanged) Powered by [employer], Reference: [id number], 06/15/2019 10:21:58 AM LEORA, Pool: ARNOLD REFILL RN ([id number]) ERCIAL SERVICE TECHNICIAN documented in this encounter Plan of Treatment Not on filedocumented as of this encounter Visit Diagnoses Diagnosis Paroxysmal atrial fibrillation (HRC) Atrial fibrillation documented in this encounter Care Teams Scroll Shear Operator Relationship Specialty Start Date End Date Carroll Kimball MD PCP - General 07/08/05 [address] [place] [address] documented as of this encounter
--- OUTSIDE RECORDS SUMMARY | 2022-04-07 07:22 | XMS_ITS | Encounter Summary ---
:1955 Author Organization [facility] Address [address] [place] [address] Care Team Providers Name Role Phone Alisha Kimball MD Primary Care Provider Reason for Visit Reason Comments ENT Clinic Visit Encounter Details Date Type Department Care Team Description 08/25/2018 Office Visit [facility] Specialty Geraldine Ackerman (Primary Dx); Center Audiology GENESIS May Sensorineural hearing loss of both ears [address] [place] [address] [place], [place] [phone] [address] Social History Tobacco Use Types Packs/Day Years Used Date Smoking Tobacco: Never Smokeless Tobacco: Never Alcohol Use Standard Drinks/Week Comments No 0 (1 standard drink = 0.6 oz pure alcoho l) Sex Assigned at Date Recorded Not on file documented as of this encounter Patient Instructions Patient InstructionsGeraldine Ackerman AU.D. - 08/25/2018 9:00 AM CST Audiology/ENT Thank you for choosing [facility] Audiology and Otolaryngology for your ear and hearing needs. Your performance improvement analyst has provided you with written follow up documentation for today's visit. Below please find additional information and resources regarding hearing that you may find helpful. Hearing Preservation: It is important to preserve your hearing. Personal headphone devices should be worn at levels not higher than 50% of the volume range. Hearing protection (ear plugs) should be worn wherever appropriate, including use of lawn mowers, snow blowers, chain saws, power tools, firearms, and while listening to live music. Hearing protection is available from all [facility] locations. Resources: Smoke and Carbon Monoxide detectors: Special smoke and carbon Monoxide alerting devices for individuals with hearing loss can be obtained from [employer]. or www.Pressflip Telephone: Amplified Telephone products may be available to you at no charge through the [place] [employer] Telephone Equipment Distribution program (appweevr). This is an income based program. The phone number is [phone] (voice) or [phone] (TTY). www.Raptr.eVariant. [facility] has printed WEN program information available upon request. Contact Information: Thank you again for allowing [facility] to participate in your hearing care. For questions regarding your visit please call [phone]. For a return audiology appointment, please call [phone]. If you require urgent after hours care, please call the Care Line at [phone]. EWER documented in this encounter Progress Notes Geraldine Ackerman AU.D. - 08/25/2018 9:00 AM CST Subjective: oLc Velasco, 63 y.o. old female, comes in today for an ENT appointment with Dr. Stephens [facility] and audiometric testing is ordered. Loc is being seen due to vertigo. She needs assistance while walking in the hallway. She reports that she went to the ER 4 daysago due to vertigo, nausea and vomiting. She reports that the medication for the vertigo had been helping, but not today. She denies any otalgia, pressure, fullness, drainage, tinnitus, family history of hearing loss, history of noise exposure or history of ear surgery. Objective: Otoscopic inspection of the ear canals shows both ear canals essentially free of wax or debris. Tympanogram is within normal limits for both ears. Acoustic Reflex Thresholds (ARTs) are within normal limits, ipsilaterally and contralaterally, from 500 Hz through 4k Hz, in the right ear and only present ipsilaterally for the left ear. The audiogram demonstrates a mild sensorineural hearing loss, bilaterally. Speech automation qa analyst thresholds are in agreement with pure tones. Word recognition is excellent for both ears when presented at conversational level. Results were reviewed with boy Monterroso be seen by ENT today. Assessment: Mild sensorineural hearing loss, bilaterally. The left ear is slightly worse than the right ear. Normal tympanometry, bilaterally. ARTs present except for left contralateral condition. Plan: Follow up with ENT at scheduled appointment today. Genesis Mansfield Upkeep Mechanic EWER documented in this encounter Plan of Treatment Not on filedocumented as of this encounter Visit Diagnoses Diagnosis Vertigo - Primary Dizziness and giddiness Sensorineural hearing loss of both ears Sensorineural hearing loss, bilateral documented in this encounter Care Teams Home Help Aide Relationship Specialty Start Date End Date Alisha Kimball MD PCP - General 07/08/05 [address] [place] [address] documented as of this encounter
--- OUTSIDE RECORDS SUMMARY | 2022-04-07 07:22 | XMS_ITS | Encounter Summary ---
:1955 Author Organization [facility] Address [address] [place] [address] Care Team Providers Name Role Phone Alisha Kimball MD Primary Care Provider Reason for Visit Reason Comments Ed Discharge Follow-up Encounter Details Date Type Department Care Team Description 09/21/2018 Telephone [facility] Alisha Kimball MD Ed Discharge Follow-up Practice [address] [place] [address] [place] [address] [phone] Social History Tobacco Use Types Packs/Day Years Used Date Smoking Tobacco: Never Smokeless Tobacco: Never Alcohol Use Standard Drinks/Week Comments No 0 (1 standard drink = 0.6 oz pure alcoho l) Sex Assigned at Date Recorded Not on file documented as of this encounter Nursing Notes Yudy Gonzalez RN - 09/21/2018 1:36 PM CDT ED Visit Follow-Up: Patient did not qualify: Patient was discharged from a specialty service and hasa scheduled f/u appt with their specialist related to the discharge diagnosis Is patient managed by central anticoagulation? Yes Were any new meds prescribed during hospitalization/ED visit? NO Yudy Gonzalez RN documented in this encounter Plan of Treatment Not on filedocumented as of this encounter Visit Diagnoses Not on filedocumented in this encounter Care Teams Field Contact Person Relationship Specialty Start Date End Date Alisha Kimball MD PCP - General 07/08/05 [address] [place] [address] documented as of this encounter
--- OUTSIDE RECORDS SUMMARY | 2022-04-07 07:23 | XMS_ITS | Encounter Summary ---
:1955 Author Organization [facility] Address [address] [place] [address] Care Team Providers Name Role Phone Alisha Kimball MD Primary Care Provider Reason for Visit Reason Comments Refill ELIQUIS 5 MG tablet [Pharmac y Med Name: ELIQUIS 5 MG TABLET] Encounter Details Date Type Department Care Team Description 06/12/2018 Refill [facility] Janice Gill , Refill (ELIQUIS 5 MG Cardiology PA-C tablet [Pharmacy Med [address] [place] [address] Name: ELIQUIS 5 [place] [address] TABLET]) [phone] Social History Tobacco Use Types Packs/Day Years Used Date Smoking Tobacco: Never Smokeless Tobacco: Never Alcohol Use Standard Drinks/Week Comments No 0 (1 standard drink = 0.6 oz pure alcoho l) Sex Assigned at Date Recorded Not on file documented as of this encounter Nursing Notes Paula Salcido RN - 06/20/2018 4:44 PM CST Eliquis Rx filled by PCP. Will close encounter. Paula Salcido RN 06/20/2018, 4:45 PM LING BARREL PAINTER Lyn Payne - 06/16/2018 4:50 PM CST Pt informed. Lyn Payne 06/16/2018, 4:50 PM LING BARREL PAINTER Alisha Kimball MD - 06/16/2018 4:32 PM CST Done. Alisha Kimball MD LING BARREL PAINTER Tara Ricketts - 06/16/2018 4:07 PM CST .Patient states Dr. Kimball is supposed to order this and not the rod and tube straightener. Requesting 90 day supply and is leaving town this Wednesday for a few months. LING BARREL PAINTER Interface, Out Surescripts Prov Query - 06/12/2018 8:29 AM CST The following lab order(s) may be associated with the Result Note below: COMPLETE BLOOD COUNT-NO DIFF Notes Recorded by Dallas Nguyen RN on 05/24/2017 at 1:23 PM Letter sent with lab results and Janice Gill's comment and recommendations Dallas Nguyen RN 05/24/2017, 1:23 PM ------ Notes Recorded by Janice Gill PA-C on 05/21/2017 at 1:06 PM Baseline labs prior to starting Eliquis. Normal aside from mildly elevated ALT, which appears to be chronic and stable. Will recheck ALT again in 6 months. No changes to current plan. Janice Gill PA-C 05/21/2017, 1:06 PM Interface, Out Surescripts Prov Query - 06/12/2018 8:29 AM CST The following lab order(s) may be associated with the Result Note below: ALT (SGPT) Notes Recorded by Dallas Nguyen RN on 11/26/2017 at 12:44 PM Letter sent with normal AST/ALT lab results. Dallas Nguyen RN 11/26/2017, 12:44 PM LING BARREL PAINTER Interface, Out Surescripts Prov Query - 06/12/2018 8:29 AM CST ELIQUIS 5 MG tablet [Pharmacy Med Name: ELIQUIS 5 MG TABLET] Cardiovascular: Factor X & Factor II Inhibitors -> Refill x 3 months (courtesy refill, overdue for a(n) HGB check and PLT check) Last qualifying visit: 09/02/2017 (in CARDIOLOGY with JANICE GILL) Next scheduled visit: None Last ordered by JANICE GILL S: 03/16/2018 (88 days ago) QTY: 180, Refills: 0, Sig: take 1 tablet by mouth two times a day. (changed but equivalent) ALT: 44 U/L on 11/26/2017 HGB: 12.9 g/dL on 05/21/2017 PLT: 219 k/cmm on 05/21/2017 PATIENT IS DUE FOR: - COMPLETE BLOOD COUNT Powered by [employer], Reference: [id number], 06/12/2018 8:29:39 AM TUMBLING BARREL PAINTER, Pool: Cardiology Refill RN ([id number]) LING BARREL PAINTER documented in this encounter Plan of Treatment Not on filedocumented as of this encounter Visit Diagnoses Diagnosis Paroxysmal atrial fibrillation (HRC) - P rimary Atrial fibrillation documented in this encounter Care Teams Marketing Support Coordinator Relationship Specialty Start Date End Date Alisha Kimball MD PCP - General 07/08/05 [address] [place] [address] documented as of this encounter
--- OUTSIDE RECORDS SUMMARY | 2022-04-07 07:23 | XMS_ITS | Encounter Summary ---
:1955 Author Organization [employer] Address [address] [place] [address] Care Team Providers Name Role Phone Alisha Kimball MD Primary Care Provider Encounter Details Date Type Department Care Team Description 11/26/2017 Lab Visit [facility] Essential hypertension (Prim levy Dx); [address] [facility] Paroxysmal atrial fibrillati on ([facility]); [place] [address] Controlled type 2 diabetes m ellitus without complication, without long-term current use of insulin ([facility]); [phone] Type 2 diabetes mellitus with hyperosmolarity without coma, without long-term current use of insulin ([facility]) Social History Tobacco Use Types Packs/Day Years Used Date Smoking Tobacco: Never Smokeless Tobacco: Never Alcohol Use Standard Drinks/Week Comments No 0 (1 standard drink = 0.6 oz pure alcoho l) Sex Assigned at Date Recorded Not on file documented as of this encounter Progress Notes Dallas Nguyen RN - 11/26/2017 12:44 PM CDT Letter sent with normal AST/ALT lab results. Dallas Nguyen RN 11/26/2017, 12:44 PM documented in this encounter Plan of Treatment Not on filedocumented as of this encounter Procedures Procedure Name Priority Date/Time Associated Diagnosis Comme nts LIPID PANEL AND Routine 11/26/2017 7:30 AM Controlled type 2 R esults for this DIRECT LDL(IF CDT diabetes mellitus procedure are in NEEDED) without complication, the re sults without long-term section. current use of insulin (HRC) BASIC METABOLIC Routine 11/26/2017 7:30 AM Controlled type 2 R esults for this PANEL CDT diabetes mellitus procedure are in without complication, the re sults without long-term section. current use of insulin (HRC) HGB A1C Routine 11/26/2017 7:30 AM Controlled type 2 Resu lts for this CDT diabetes mellitus procedure are in without complication, the re sults without long-term section. current use of insulin (HRC) ALT (SGPT) Routine 11/26/2017 7:30 AM Paroxysmal atrial Resu lts for this CDT fibrillation (HRC) procedure are in the results section. AST Routine 11/26/2017 7:30 AM Paroxysmal atrial Resu lts for this CDT fibrillation (HRC) procedure are in the results section. documented in this encounter Results Microalb/Creat Ratio (12/02/2017 7:57 AM CDT) [facility] Signature Albumin, 2.3 mg/L [facility] Creatinine,Ur 46 mg/dl [facility] Alb/Creat 5 <30 mg/g [facility] Ratio, Urine, creatinine [facility] Random Specimen Anatomical Collection Method Collection Time Receive d Time (Source) Location / / Volume Laterality Urine specimen 12/02/2017 7:57 AM 018 7:58 (specimen) CDT AM CDT Narrative [facility] - 12/02/2017 1:00 PM C DT Performed at [facility], [address] [place] [address] ??[phone] Alisha Kimball MD LAB_1 Performing Organization Address City/State/ZIP Code Phon e Number [facility] [phone] Basic Metabolic Panel (11/26/2017 7:30 AM CDT) Analysis Performed At Patho logist Time Signature Sodium 139 136 - 145 [facility] mmol/L [facility] Potassium 4.3 3.5 - 5.1 [facility]/L [facility] Chloride 107 98 - 109 [facility]/L [facility] CO2 23 20 - 29 [facility]/L [facility] Anion Gap 9 7 - 16 [facility] (calc.) mmol/L [facility] Glucose 132 70 - 180 [facility] mg/dl [facility] Calcium 9.8 8.4 - 10.4 [facility] mg/dl [facility] BUN 18 7 - 26 [facility] mg/dl [facility] Creatinine 0.86 0.55 - [facility] 1.02 mg/dl [facility] GFR, Estimated >60 >60 [facility] ml/min/1.7 [facility] 3m2 GFR, Est., If >60 >60 [facility] Black ml/min/1.7 [facility] 3m2 Specimen Anatomical Collection Method Collection Time Receive d Time (Source) Location / / Volume Laterality 11/26/2017 7:30 AM 8 7:33 CDT AM CDT Narrative [facility] - 11/26/2017 12:05 PM CDT Performed at [facility], [address] [place] [address] ??[phone] Alisha Kimball MD LAB_1 Performing Organization Address [facility] Phon e Number [facility] [phone] (ABNORMAL) Hgb A1c (11/26/2017 7:30 AM CDT) P athologist Signature Hgb A1c 7.7 (H) 4.3 - 5.6 [facility] % Comment: See (NOTE) For patients not previously diagnosed wi th diabetes: 5.7-6.4%: Increased risk for diabetes (p rediabetic) 6.5% and greater: Diagnostic for diabete s ?? For diabetic patients: <8.0%: Goal of therapy for ages 18-75 - physicians may recommend a higher or lower goal for specific indiv iduals Specimen Anatomical Collection Method Collection Time Receive d Time (Source) Location / / Volume Laterality 11/26/2017 7:30 AM 8 7:33 CDT AM CDT Narrative [facility] - 11/26/2017 12:56 PM CDT Performed at [facility], [address] [place] [address] ??[phone] Alisha Kimball MD LAB_1 Performing Organization Address [facility] Phon e Number [facility] [phone] Lipid Panel and Direct LDL(If Needed) (11/26/2017 7:30 AM CDT) Patholo gist Method Time Signature Hours Fasting 12 hours [facility] Cholesterol 162 0 - 199 [facility] mg/dl [facility] Triglyceride 123 0 - 149 [facility] mg/[facility] HDL 41 >40 mg/dl [facility] LDL, Calc. 96 0 - 129 [facility] mg/dl [facility] Non HDL Chol, 121 0 - 159 [facility] Calc mg/dl [facility] Specimen Anatomical Collection Method Collection Time Receive d Time (Source) Location / / Volume Laterality 11/26/2017 7:30 AM 8 7:33 CDT AM CDT Narrative [facility] - 11/26/2017 12:05 PM CDT Performed at [facility], [address] [place] [address] ??[phone] Alisha Kimball MD LAB_1 Performing Organization Address [facility] Phon e Number [facility] [phone] ALT (SGPT) (11/26/2017 7:30 AM CDT) P athologist Signature ALT (SGPT) 44 0 - 55 U/L [facility] Specimen Anatomical Collection Method Collection Time Receive d Time (Source) Location / / Volume Laterality 11/26/2017 7:30 AM 8 7:33 CDT AM CDT Narrative [facility] - 11/26/2017 12:06 PM CDT Performed at [address] ??[phone] Janice Gill PA-C LAB_1 Performing Organization Address [facility] Phon e Number [facility] [phone] AST (11/26/2017 7:30 AM CDT) P athologist Signature AST (SGOT) 26 10 - 40 U/L [facility] Specimen Anatomical Collection Method Collection Time Receive d Time (Source) Location / / Volume Laterality 11/26/2017 7:30 AM 8 7:33 CDT AM CDT Narrative [facility] - 11/26/2017 12:06 PM CDT Performed at [facility], [address] [place] [address] ??[phone] Janice S Tainter PA-C LAB_1 Performing Organization Address City/State/ZIP Code Phon e Number [facility] [phone] documented in this encounter Visit Diagnoses Diagnosis Essential hypertension (HRC) - Primary Unspecified essential hypertension Paroxysmal atrial fibrillation (HRC) Atrial fibrillation Controlled type 2 diabetes mellitus with out complication, without long-term current use of insulin (HRC) Type 2 diabetes mellitus with hyperosmol arity without coma, without long-term current use of insulin (HRC) Type 2 diabetes mellitus with hyperosmol arity without coma, without long-term current use of insulin (HRC) documented in this encounter Care Teams Cyber Transport Systems Specialist Relationship Specialty Start Date End Date Alisha Kimball MD PCP - General 07/08/05 [address] [place] [address] documented as of this encounter
--- OUTSIDE RECORDS SUMMARY | 2022-04-07 07:23 | XMS_ITS | Encounter Summary ---
:1955 Author Organization [facility] Address [address] [place] [address] Care Team Providers Name Role Phone Alisha Kimball MD Primary Care Provider Encounter Details Date Type Department Care Team Description [facility]/23/2018 [facility] for long[facility]term [address] [address] (current) use of [place], [place] [address] medications [phone] Social History Tobacco Use Types Packs/Day Years [...] Priority Date/Time Associated Diagnosis Comme nts HGB A1C Routine 05/23/2018 7:45 AM Encounter for Results for this TILE DITCHER long-term (current) procedur e are in use of medications the resul ts section. documented in this encounter Results (ABNORMAL) Hgb A1c (05/23/2018 7:45 AM TILE DITCHER) P athologist Signature Hgb A1c 8.2 (H) 4.3 - 5.6 [facility] % [...] Time (Source) Location / / Volume Laterality 05/23/2018 7:45 AM 8 7:46 TILE DITCHER AM TILE DITCHER Narrative [facility] - 05/23/2018 2:[address] Performed at [facility], [address] [place] [address] ??[phone] Alisha Kimball MD LAB_1 Performing Organization Address City/State/ZIP Code Phon e Number [facility] [phone] documented in this encounter Visit Diagnoses Diagnosis Encounter for long-term (current) use of medications Encounter for long-term (current) use of other medications documented in this encounter Care Teams Chicken Fancier Relationship Specialty Start Date End Date Alisha Kimball MD PCP - General 07/08/05 [address] [place] [address] documented as of this encounter
--- OUTSIDE RECORDS SUMMARY | 2022-04-07 07:23 | XMS_ITS | Encounter Summary ---
:1955 Author Organization [facility] Address [address] [place] [address] Care Team Providers Name Role Phone Carroll Avalos MD Primary Care Provider Reason for Visit Reason Comments Refill atorvastatin (LIPITOR) 10 MG tablet [Pharmacy Med Name: ATORVASTATIN 10 MG TABLET] Encounter Details Date Type Department Care Team Description [facility] (atorvastatin [address] [facility] [address] (LIPITOR) 10 [place] [address] [place] [address] [Pharmacy Med Name: [phone] (Wo rk) ATORVASTATIN 10 MG TABLET]) Social History Tobacco Use Types Packs/Day Years Used Date Smoking Tobacco: Never Smokeless Tobacco: Never Alcohol Use Standard Drinks/Week Comments No 0 (1 standard drink = 0.6 oz pure alcoho l) Sex Assigned at Date Recorded Not on file documented as of this encounter Nursing Notes Senia Cramer RN - 02/01/2018 2:11 PM CDT per standing order Senia Cramer RN Interface, Out Surescripts Prov Query - 02/01/2018 1:04 AM CDT atorvastatin (LIPITOR) 10 MG tablet [Pharmacy Med Name: ATORVASTATIN 10 MG TABLET] Cholesterol - Statins -> Refill x 12 months, qty: 90, refills: 3 (until due for an office visit) Last qualifying visit: 12/07/2017 (in [facility]) Next scheduled visit: None Last ordered by CARROLL AVALOS: 01/22/2017 (375 days ago) QTY: 90, Refills: 3, Sig: take one tabletby mouth every day (changed but equivalent) LDL: 96 mg/dL on 11/26/2017 Powered by [employer], Reference: [id number], 02/01/2018 1:04:55 AM CDT, Pool: ARNOLD AMEZQUITA RN ([id number]) Interface, Out DVS [employer] Query - 02/01/2018 1:04 AM CDT The following lab order(s) may be associated with the Result Note below: AST Notes Recorded by Dallas Nguyen RN on 11/26/2017 at 12:44 PM Letter sent with normal AST/ALT lab results. Dallas Nguyen RN 11/26/2017, 12:44 PM documented in this encounter Plan of Treatment Not on filedocumented as of this encounter Visit Diagnoses Not on filedocumented in this encounter Care Teams Broke Beater Machine Operator Relationship Specialty Start Date End Date Carroll Avalos MD PCP - General 07/08/05 [address] [place], [place] [id number] documented as of this encounter
--- OUTSIDE RECORDS SUMMARY | 2022-04-07 07:23 | XMS_ITS | Encounter Summary ---
:1955 Author Organization [employer] Address [address] [place] [address] Care Team Providers Name Role Phone Alisha Kimball MD Primary Care Provider Reason for Visit Reason Comments Dental Hygiene none Encounter Details Date Type Department Care Team Description 06/10/2018 Office Visit [facility] Tiffanie Fletcher Dental Hygiene (none) Dentistry [address] [facility] [address] [place] [address] [phone] Social History Tobacco Use Types Packs/Day Years Used Date Smoking Tobacco: Never Smokeless Tobacco: Never Alcohol Use Standard Drinks/Week Comments No 0 (1 standard drink = 0.6 oz pure alcoho l) Sex Assigned at Date Recorded Not on file documented as of this encounter Last Filed Vital Signs Vital Sign Reading Time Taken Comments Blood Pressure 117/69 06/10/2018 10:55 AM TURNING LATHE TENDER Pulse - - Temperature - - Respiratory Rate - - Oxygen Saturation - - Inhaled Oxygen Concentration - - Weight - - Height - - Body Mass Index - - documented in this encounter Progress Notes Janiya Fletcher - 06/10/2018 11:00 AM CST HYGIENE PROPHY NOTE (NO EXAM) Loc (63 y.o.) was seen today for Dental Hygiene (none) COLLABORATIVE AGREEMENT Patient consents to have charting and prophylaxis by the dental hygienist performed with the understanding that this care is not a substitute for an examination by a dentist. CHART REVIEW Reviewed health history, dental history and periodontal charting with the patient. PRESENTATION Oral Hygiene: normal Plaque: localized; moderate; interproximal Calculus:localized; light; supra-gingival Stain: localized; light; coffee/tea Bleeding: localized; light Gingival tissue:normal Mucogingival concerns: absent ACTIVITIES Treatment included OHI, hand scale, tooth brush prophy, flossed all contacts and demonstrated flossing PATIENT EDUCATION Discussion topics included OHI REMINERALIZATION COUNSELING Patient's readiness for change is preparation Caries risk factors of recent or active caries to be addressed Patient has not been compliant with previous recommendations to address caries risk. The dental professional reviewed remineralization with the patient. Today's activities included application of fluoride. There were no prescribed pharmacy prescriptions and/or OTC meds. The patient was not given any health education materials at this visit. Follow up plan is recall TREATMENT REVIEW AND FOLLOW-UP Discussed the prognosis and treatment options with the patient and they expressed understanding. All questions were answered and informed consent was obtained. Recommended Recall Examination due in 8 months Recall prophy due in 4 months Planned Recall Examination planned in 8 months Recall prophy planned in 4 months NEXT VISIT Next planned visit is recall Janiya Fletcher 06/10/2018, 11:07 AM Completed dental procedures in this visit There are no completed dental procedures in this visit. --End of Note-- ING LATHE TENDER documented in this encounter Plan of Treatment Not on filedocumented as of this encounter Procedures Procedure Name Priority Date/Time Associated Diagnosis Comme nts PROPHYLAXIS-ADULT Routine 06/10/2018 11:00 AM TURNING LATHE TENDER Localized gi ngivitis RECALL documented in this encounter Visit Diagnoses Diagnosis Localized gingivitis - Primary Visit for periodic health examination Unspecified general medical examination documented in this encounter Care Teams Timber Cutter Relationship Specialty Start Date End Date Alisha Kimball MD PCP - General 07/08/[address] [place] [address] documented as of this encounter
--- OUTSIDE RECORDS SUMMARY | 2022-04-07 07:23 | XMS_ITS | Encounter Summary ---
:1955 Author Organization [facility] Address [address] [place] [address] Care Team Providers Name Role Phone Alisha Kimball MD Primary Care Provider Encounter Details Date Type Department Care Team Description 12/02/2017 Notes/[facility] [place], Type [address] [facility] [place] [address] without coma, without [phone] [place], [place] [address] insulin ([facility]) Social History Tobacco Use Types Packs/Day Years [...] Priority Date/Time Associated Diagnosis Comme nts ALBUMIN/CREAT Routine 12/02/2017 7:57 AM Type 2 diabetes Resul ts for this RATIO CDT mellitus with procedure are in hyperosmolarity without the results coma, without long-term sect ion. current use of insulin ([facility]) documented in this encounter Results Microalb/Creat Ratio (12/02/2017 7:57 AM CDT) [facility] gist Method Time Signature Albumin, 2.3 mg/L [facility] Creatinine,Ur 46 mg/dl [facility] Alb/Creat 5 <30 mg/g [facility] Ratio, Urine, creatinine [facility] Random Specimen Anatomical Collection Method Collection Time Receive d Time (Source) Location / / Volume Laterality Urine specimen 12/02/2017 7:57 AM 018 7:58 (specimen) CDT AM CDT Narrative [facility] - 12/02/2017 1:00 PM C DT Performed at [facility], [address] [place] [address] ??[phone] Alisha Kimball MD LAB_1 Performing Organization Address City/State/ZIP Code Phon e Number [facility] [phone] documented in this encounter Visit Diagnoses Diagnosis Type 2 diabetes mellitus with hyperosmol arity without coma, without long-term current use of insulin (HRC) documented in this encounter Care Teams Subscription Crew Leader Relationship Specialty Start Date End Date Alisha Kimball MD PCP - General 07/08/05 [address] [place] [address] documented as of this encounter
--- OUTSIDE RECORDS SUMMARY | 2022-04-07 07:23 | XMS_ITS | Encounter Summary ---
:1955 Author [facility] Address [address] [place] [address] Care Team Providers Name Role Phone Alisha Kimball MD Primary Care Provider Reason for Visit Reason Comments INJURY, EYE Encounter Details Date Type Department Care Team Description 12/25/2017 Nurse Triage Careline Unknown, Physician INJURY, EYE [address] [place], [place] [address] [place], [place] [address] (Wo rk) Social History Tobacco Use Types Packs/Day Years Used Date Smoking Tobacco: Never Smokeless Tobacco: Never Alcohol Use Standard Drinks/Week Comments No 0 (1 standard drink = 0.6 oz pure alcoho l) Sex Assigned at Date Recorded Not on file documented as of this encounter Nursing Notes Emerson Harris RN - 12/25/2017 12:46 PM CDT Reason for Disposition ??? Scratch on white of the eye (sclera) Answer Assessment - Initial Assessment Questions 1. MECHANISM: How did the injury happen? Poked self with fingernail in right eye 2. ONSET: When did the injury happen? (Minutes or hours ago) 10:30 pm 3. LOCATION: What part of the eye is injured? (cornea, sclera, eyelid, or periorbital tissue) sclear 4. APPEARANCE: What does the eye look like? bloody 5. VISION: Is the vision blurred? no 6. PAIN: Is it painful? If so, ask: How bad is the pain? (e.g., Scale 1-10; or mild, moderate, severe) no 7. SIZE: For cuts, bruises, or swelling, ask: How large is it? (e.g., inches or centimeters) It did but now better 8. TETANUS: For any breaks in the skin, ask: When was the last tetanus booster? na 9. CONTACTS: Do you wear contacts? no 10. OTHER SYMPTOMS: Do you have any other symptoms? (e.g., headache, neck pain, vomiting) no 11. : Is there any chance you are ? When was your last menstrual period? na Protocols used: EYE [id number] Dr. Gino Francisco paged at 12:50 PM Returned page at 1:04 PM Instructed to: Ciprofloxacin 0.3% one drop to affected eye QID for 7 days. Emerson Harris RN - 12/25/2017 12:43 PM CDT Verified patient identity using three identifiers: Yes Jayson [facility] [address] Situation/Background (brief explanation of current symptoms/situation): Poked self with fingernail, bleeding on sclera. Diabetes, heart issues, on blood tinner and high blood pressure, several meds Johnna Hunt - 12/25/2017 10:07 AM CDT Verified patient identity using three identifiers: Yes Caller's relationship to patient: Self At which care system or clinic is the patient normally seen? [facility] Symptoms Describe the reason for call/symptoms (include location and duration if applicable): Her right eye feels itchy and has some redness since yesterday. Plan:The current callback time to speak with a nurse is 2.5 hours. If your symptoms change or worsen, or if you have not received a call back in the stated timeframe, please call us back documented in this encounter Plan of Treatment Not on filedocumented as of this encounter Visit Diagnoses Not on filedocumented in this encounter Care Teams Oracle Business Analyst Relationship Specialty Start Date End Date Alisha Kimball MD PCP - General 07/08/05 [address] [place] [address] documented as of this encounter
--- OUTSIDE RECORDS SUMMARY | 2022-04-07 07:23 | XMS_ITS | Encounter Summary ---
:1955 Author Organization [facility] Address [address] [place] [address] Care Team Providers Name Role Phone Alisha Kimball MD Primary Care Provider Reason for Referral Procedure/Equipment (Routine) - Incomplete Specialty Diagnoses / Procedures Referred By Contact Refer red To Contact Procedures Alisha Kimball MD [facility] Mammogram Screening [facility] [address] [place] [address] Referral ID Status Reason Start Date Expiration Date Visits V isits Requested Authorized [id number] Incomplete 01/18/2018 04/19/2019 1 1 Reason for Visit Procedure/Equipment (Routine) - Incomplete Specialty Diagnoses / Procedures Referred By Contact Refer red To Contact Procedures Alisha Kimball MD [facility] Mammogram Scre[facility] [address] [place] [address] Referral ID Status Reason Start Date Expiration Date Visits V isits Requested Authorized [id number] Incomplete 01/18/2018 04/19/2019 1 1 Encounter Details Date Type Department Care Team Description 01/18/2018 Imaging [facility] [address] [place] [address] Social History Tobacco Use Types [...] Associated Diagnosis Comme nts MM MAMMOGRAM Routine 01/18/2018 12:49 PM Results for this SCREENING BILAT W CDT procedure are in CAD the results section. documented in this encounter Results MM Mammogram Screening Bilat W CAD (01/18/2018 12:49 PM CDT) Anatomical Region Laterality Modality Breast Bilateral Mammography Specimen (Source) Anatomical Location Collection Method / Collectio n Time Received Time / Laterality Volume Impressions 01/19/2018 1:43 PM CDT : ACR BI-RADS Category 1: Negative RECOMMENDATION: Follow Up Imaging in 12 months - Bilateral The results and recommendations of this examination will be communicated to the patient. Narrative 01/19/2018 1:43 PM CDT MM MAMMOGRAM SCREENING BILAT W CAD performed on 01/18/18 Compared to: 01/18/2017 MM Mammogram Scr eening Bilat W CAD, 01/08/2016 MM Mammogram Screening Bilat W CAD, and 10/2014 MAMMOGRAM SCREENING BILATERAL FINDINGS: Bilateral screening mammogram was performed with the assistance of Computer-Aided Detection. The breasts have scattered areas of fibroglandular density. There is no radiographic evidence of mal ignancy. ?? Alisha Kimball MD RAD MIKEY documented in this encounter Visit Diagnoses Not on filedocumented in this encounter Care Teams Skein Washer Relationship Specialty Start Date End Date Alisha Kimball MD PCP - General 07/08/05 [address] [place] [address] documented as of this encounter
--- OUTSIDE RECORDS SUMMARY | 2022-04-07 07:23 | XMS_ITS | Encounter Summary ---
:1955 Author Organization [facility] Address [address] [address] Care Team Providers Name Role Phone Alisha Kimball MD Primary Care Provider Reason for Visit Reason Comments Dental Hygiene none Encounter Details Date Type Department Care Team Description 02/07/2018 Office Visit [facility] Tiffanie Fletcher [address] [place], [place] [id number] Dental Hygiene (none) Dentistry [place], Exam [address] [place], [place] [phone] Social History Tobacco Use Types Packs/Day Years Used Date Smoking Tobacco: Never Smokeless Tobacco: Never Alcohol Use Standard Drinks/Week Comments No 0 (1 standard drink = 0.6 oz pure alcoho l) Sex Assigned at Date Recorded Not on file documented as of this encounter Last Filed Vital Signs Vital Sign Reading Time Taken Comments Blood Pressure 131/77 02/07/2018 8:56 AM CDT Pulse - - Temperature - - Respiratory Rate - - Oxygen Saturation - - Inhaled Oxygen Concentration - - Weight - - Height - - Body Mass Index - - documented in this encounter Patient Instructions Patient InstructionsJaniya Fletcher - 02/07/2018 8:50 AM CDT Your next hygiene recall is due 06/09/2018 PERSONAL DENTAL RISK REPORT FOR LOC VELASCO Caries (Tooth Decay) Risk Periodontal (Gum Disease) Risk Oral Cancer Risk Your Risk Level Low High Moderate Low X This exam Your Risk Level Moderate Low High Moderate X Low X This exam Your Risk Level Low Elevated Low X This exam Your Risk Factors How To Reduce Your Risk Instruction on brushing; flossing; and use of oral hygiene products Dental films for evaluation of the presence and progression of decay Your Risk Factors Missing non third molar teeth Diagnosed with either Type I or Type II diabetes How To Reduce Your Risk Return visit with the dental hygienist at 3 month intervals to assess periodontal condition and provide necessary treatment Use of specific products to assist with proper oral hygiene; for example; electric toothbrush with timer Oral hygiene instruction by the dentist; dental hygienist or dental regional administrative assistant Specific information about what causes periodontal disease and what steps can be taken to helpcontrol it Return visit with the dental hygienist at 6 month intervals Your Risk Factors Incidence of oral cancer increases with age How To Reduce Your Risk CONGRATULATIONS. The results of your dental risk assessment indicate you are at low risk for tooth decay. Making healthy life style choices including brushing twice a day; daily flossing and healthy dietary choices should help you maintain this low risk. CONGRATULATIONS. The results of your dental risk assessment indicate you are at low risk for gum disease. Making healthy life style choices including brushing twice a day; daily flossing and not using tobacco should help you maintain this low risk. CONGRATULATIONS. The results of your dental risk assessment indicate you are at low risk for oral cancer. Making healthy life style choices such as not using tobacco and low to moderate alcohol use should help you maintain this low risk. [place], we look forward to seeing you at your next visit! Thank you for choosing [facility]. documented in this encounter Progress Notes Janiya Fletcher - 02/07/2018 8:50 AM CDT PROPHY NOTE PROPHY/ASSESSMENT:88355::PROPHY NOTE Collaborative Agreement Patient consents to have charting and prophylaxis by the dental hygienist performed with the understanding that this care is not a substitute for examination by a dentist. Presentation ?? Oral Hygiene: normal ?? Plaque: localized; light; supra-gingival ?? Calculus:localized; light; interproximal ?? Stain: localized; light; coffee/tea ?? Bleeding: localized; light ?? Gingival tissue: normal ?? Mucogingival concerns: absent Activities ?? Treatment included: OHI, hand scale, essential selective polishing, flossed all contacts and demonstrated flossing Patient Education ?? Discussion topics: caries risk assessment, fluoride rinse, OHI, oral cancer risk, periodontal risk and remineralization strategies ?? Remineralization counseling - Patient's readiness for change is action - Risk factors for caries including recent or active caries to be addressed - Patient has not been compliant with previous recommendations to address caries risk - The hygienist reviewed remineralization at today's visit. - Today's activities included application of fluoride - The patient was not given health education materials on dry mouth - Prescriptions for pharmacy and/or over the counter products include OTC Fluoride - Follow up plan: 6 monthrecall Janiya Fletcher 02/07/2018, 9:13 AM Completed dental procedures in this visit There are no completed dental procedures in this visit. Jamaal Cleveland DDS - 02/07/2018 8:50 AM CDT RECALL EXAM NOTE Chief Complaint Patient presents with ??? Dental Hygiene none Chart Review ?? Reviewed health history, dental history, periodontal charting and radiographs with the patient. Soft tissue, head and neck examination ?? Lips: normal ?? Tongue: normal ?? Palate: normal ?? Throat: normal ?? Floor of the mouth: normal ?? Mucosa: normal ?? Head and neck: normal TMD Evaluation ?? Palpation pain: none ?? Joint sounds: none ?? Pain with range of motion: none Occlusal examination ?? Occlusion: unchanged Cosmetic concerns ?? Patient's perception: acceptable ?? Dentist???s perception: acceptable Treatment Review and Follow-up ?? Dental Findings were described to the patient and they did express understanding ?? Treatment options and prognosis were discussed ?? Informed patient consent was obtained; after all questions were answered ?? Recommended Recall Examination: 6 months Recall prophy: 4 months ?? Planned Recall Examination: 8 months Recall prophy: 4 months NTI, not interested in replacing missing teeth, #2 is stable Jamaal Cleveland DDS 02/07/2018, 9:27 AM Remineralization counseling: See Hygiene Note documented in this encounter Plan of Treatment Not on filedocumented as of this encounter Procedures Procedure Name Priority Date/Time Associated Diagnosis Comme nts PERIODIC ORAL EVALUATION Routine 02/07/2018 10:03 AM Localized gingivitis CDT PROPHYLAXIS-ADULT RECALL Routine 02/07/2018 10:03 AM Localized gingivitis CDT documented in this encounter Visit Diagnoses Diagnosis Localized gingivitis - Primary documented in this encounter Care Teams Needlemaker Relationship Specialty Start Date End Date Alisha Kimball MD PCP - General 07/08/05 [address] [place] [address] documented as of this encounter
--- OUTSIDE RECORDS SUMMARY | 2022-04-07 07:23 | XMS_ITS | Encounter Summary ---
:1955 Author Organization [email or web address] Address [address] [place] [address] Care Team Providers Name Role Phone Alisha Kimball MD Primary Care Provider Reason for Visit Reason Comments Refill Encounter Details Date Type Department Care Team Description 06/16/2018 Telephone [facility] maxi Alisha Kimball MD Refill [address] [facility]. [address] [place] [address] [place], [place] [phone] (Wo rk) Social History Tobacco Use Types Packs/Day Years Used Date Smoking Tobacco: Never Smokeless Tobacco: Never Alcohol Use Standard Drinks/Week Comments No 0 (1 standard drink = 0.6 oz pure alcoho l) Sex Assigned at Date Recorded Not on file documented as of this encounter Nursing Notes Alisha Kimball MD - 06/16/2018 4:44 PM CST Done. Alisha Kimball MD ENT SCHEDULER Tara Ricketts - 06/16/2018 4:05 PM CST Eliquis 5 mg.Patient states PCP is supposed to order from now on and not the poultry vaccinator. Resent the Refill request to Dr. Kimball. ENT SCHEDULER Francesca Cho CMA - 06/16/2018 3:28 PM CST CA: What prescription is patient requesting a refill on? ENT SCHEDULER Francesca Cho CMA - 06/16/2018 3:27 PM CST ----- Message from Rocio Garcia sent at 06/16/2018 3:14 PM PATIENT SCHEDULER ----- Contact: Melia Patient is calling about their refill request, please complete as soon as possible. Thanks, Rocio Garcia ENT SCHEDULER Rocio Garcia - 06/16/2018 3:13 PM CST Patient called to check status of this refill request. [facility] on Wednesday06/20/18 ENT SCHEDULER documented in this encounter Plan of Treatment Not on filedocumented as of this encounter Visit Diagnoses Not on filedocumented in this encounter Care Teams Microsoft Solutions Architect Relationship Specialty Start Date End Date Alisha Kimball MD PCP - General 07/08/05 [address] [place] [address] documented as of this encounter
--- OUTSIDE RECORDS SUMMARY | 2022-04-07 07:23 | XMS_ITS | Encounter Summary ---
:1955 Author Organization [facility] Address [address] [place] [address] Care Team Providers Name Role Phone Alisha Kimball MD Primary Care Provider Reason for Visit Reason Comments ROUTINE HEALTH MAINTENANCE Smartset/Labs and urine wer e done last week. Encounter Details Date Type Department Care Team Description 12/07/2017 Office Visit [facility] Alisha Kimball, German r for routine adult health examination without abnormal findings (Primary Dx); Practice MD Type 2 diabetes mellitus without complic ation, without long-term current use of insulin (HRC); [address]; [place] [address] [address] Paroxysmal atrial fibrillation ([facility]); [phone] [place], [place] Screening for H IV (human immunodeficiency virus); [address] Encounter for screening mammogram for ma lignant neoplasm of breast Social History Tobacco Use Types Packs/Day Years Used Date Smoking Tobacco: Never Smokeless Tobacco: Never Alcohol Use Standard Drinks/Week Comments No 0 (1 standard drink = 0.6 oz pure alcoho l) Sex Assigned at Date Recorded Not on file documented as of this encounter Last Filed Vital Signs Vital Sign Reading Time Taken Comments Blood Pressure 128/75 12/07/2017 1:55 PM CDT Pulse 58 12/07/2017 1:55 PM CDT Temperature 37.2 ??C (99 ??F) 12/07/2017 1:26 PM CDT Respiratory Rate - - Oxygen Saturation - - Inhaled Oxygen Concentration - - Weight 87.1 kg (192 lb) 12/07/2017 1:26 PM CDT Height 163.2 cm (5' 4.25) 12/07/2017 1:26 PM CDT Body Mass Index 32.7 12/07/2017 1:26 PM CDT documented in this encounter Patient Instructions Patient InstructionsTammie Francesca Salome, CONTAINER FINISHER - 12/07/2017 1:52 PM CDT Images from the original note were not included. For rash: Topicort cream to itchy patches in a thin layer twice daily for 1-2 weeks as needed. Let me know after 7-10 days if this is not helpful or sooner if you are worse. If this does not help, I will have you see a Floor Specialist. Well Visit, Women 50 to 65: Care [...] Wear a seat belt in the car. ?? Limit alcohol to 1 drink a day. Too much alcohol can cause health problems. Follow your doctor's advice about when to [...] you should have tests for diabetes. ?? Colon cancer. You should begin tests for colon cancer at age 50. You may have one of several tests. Your doctor will tell you how often to have tests based on your age and risk. Risks include whether you already had a precancerous polyp removed from your colon or whether your parents, sisters and brothers, or children have had colon cancer. ?? Thyroid disease. Talk to your doctor [...] can you learn more? 1. Go to [employer] or [employer]. 2. Enter Y074 in the search box. Current as of: November 17, 2016 Content Version: 11.6 ?? 9519-0485 [employer]. Dermatitis: Care Instructions Your Care Instructions Dermatitis is the general name used for any rash or inflammation of the skin. Different kinds of dermatitis cause different kinds of rashes. Common causes of a rash include new medicines, plants (such as poison oak or poison quincy), heat, and stress. Certain illnesses can also cause a rash. An allergic reaction to something that touches your skin, such as latex, nickel, or poison quincy, is called contact dermatitis. Contact dermatitis may also be caused by something that irritates the skin,such as bleach, a chemical, or soap. These types of rashes cannot be spread from person to person. How long your rash will last depends on what caused it. Rashes may last a few days or months. Follow-up care is a israel part of your treatment and safety. Be sure to make and go to all appointments, and call your doctor if you are having problems. It's also a good idea to know your test results and keep a list of the medicines you take. How can you care for yourself at home? ?? Do not scratch the rash. Cut your nails short, and file them smooth. Or wear gloves if this helpskeep you from scratching. ?? Wash the area with water only. Pat dry. ?? Put cold, wet cloths on the rash to reduce itching. ?? Keep cool, and stay out of the sun. ?? Leave the rash open to the air as much as possible. ?? If the rash itches, use hydrocortisone cream. Follow the directions on the label. Calamine lotionmay help for plant rashes. ?? Take an ndzz-goi-gvqmlit antihistamine, such as diphenhydramine (Benadryl) or loratadine (Claritin), to help calm the itching. Read and follow all instructions on the label. ?? If your doctor prescribed a cream, use it as directed. If your doctor prescribed medicine, take it exactly as directed. When should you call for help? Call your doctor now or seek immediate medical care if: ? ?? You have symptoms of infection, such as: ? Increased pain, swelling, warmth, or redness. ? Red streaks leading from the area. ? Pus draining from the area. ? A fever. ? ?? You have joint pain along with the rash. ?Watch closely for changes in your health, and be sure to contact your doctor if: ? ?? Your rash is changing or getting worse. ? ?? You are not getting better as expected. Where can you learn more? 1. Go to [employer] or [employer]. 2. Enter F270 in the search box. Current as of: April 08, 2017 Content Version: 11.6 ?? [id number] [employer]. documented in this encounter Progress Notes Alisha Kimball MD - 12/07/2017 1:22 PM CDT Routine Health Maintenance: Historical: Loc Velasco is a 62 y.o. old female Chief Complaint Patient presents with ??? ROUTINE HEALTH MAINTENANCE Smartset/Labs and urine were done last week. Current concerns: 1. We talked about her atrial fibrillation. Presented with palpitations and syncope. Has been takingmetoprolol 200 mg and the Eliquis without side effects or bleeding. No palpitations and good exercise tolerance without symptoms. 2. Hgb A1c (%) Date Value 11/26/2017 7.7 (H) 03/04/2017 7.8 (H) Has been increasing her exercise and working on weight loss. Does not want to add more medication. 3. Rash on and off bilateral shins. Itchy. Occasional swelling in her lower legs. Was seen for this before and given triamcinolone 0.1% cream and helped some. Mostly resolved right side, but still has the rash on her left side. No history of similar rash. No new soaps, lotions. Only new medication is the Eliquis. No contacts with a similar rash. The rash is not spreading beyond her legs. Normal DEXA 2009. Menses are: absent- postmenopausal Hysterectomy 1998 History of abnormal pap tests? No Diet, fruits/ vegetables: 3-5 or more servings each day Present exercise habits: 1 mile a day walking Do you have any concerns about your hearing? no Have you: - felt little interest or pleasure in doing things, for a few days or more in the last 2 weeks? OR - felt down, depressed or hopeless for a few days or more in the last 2 weeks? no Do you feel unsafe at home? no I have reviewed the medical, surgical, family and social histories. Observed: BP 128/75 Pulse (!) 58 Temp 99 ??F (37.2 ??C) (Tympanic) Ht 5' 4.25 (1.632 m) Wt 192 lb (87.1 kg) BMI 32.7 kg/m2 General: Appears stated age, alert and comfortable [...] hepatomegaly or splenomegaly. : not examined. Skin: patchy red papular rash left beavers. No skin breakdown. Extremities: no cyanosis, clubbing, or edema.Feet in good repair. Normal sensation to monofilament testing bilaterally. Assessment/Plan: ICD-10-CM 1. Encounter for routine adult health examination without abnormal findings Z00.00 2. Screening for HIV (human immunodeficiency virus) Z11.4 HIV 1/2 Ag/Ab 4th Generation 3. Encounter for screening mammogram for malignant neoplasm of breast Z12.31 MM Mammogram Screening Bilat W CAD 4. Screening for malignant neoplasm of cervix Z12.4 5. Type 2 diabetes mellitus without complication, without long-term current use of insulin (HRC) E11.9 HGB A1C (Glycated)- future, expected in 12 weeks Diabetic Foot Check (Ep101) 6. Rash R21 desoximetasone (TOPICORT) 0.25 % cream Patient counseled: -protection from UV light -calcium and vitamin D recommendations 1. Paroxysmal atrial fibrillation. Stable with current treatment, which will be continued. She will follow up prn symptoms or other concerns. 2. Controlled type 2 diabetes but A1C is higher than preferred. Discussed treatment options. She wants to continue to work on weight loss and will repeat her A1C in 3 months. 3. Rash, consistent with dermatitis. May be stasis dermatitis. Discussed. See the patient instructions. If incompletely helpful, will have her see Dermatology. Alisha Kimball MD documented in this encounter Plan of Treatment Not on filedocumented as of this encounter Visit Diagnoses Diagnosis Encounter for routine adult health exam[facility] without abnormal findings - Primary Type 2 diabetes mellitus without complic ation, without long-term current use of insulin (HRC) Rash Rash and other nonspecific skin eruption Paroxysmal atrial fibrillation (HRC) Atrial fibrillation Screening for HIV (human immunodeficienc y virus) Special screening examination for other specified viral diseases Encounter for screening mammogram for ma lignant neoplasm of breast Other screening mammogram documented in this encounter Care Teams Railcar Switcher Relationship Specialty Start Date End Date Alisha Kimball MD PCP - General 07/08/05 [address] [place] [address] documented as of this encounter
--- OUTSIDE RECORDS SUMMARY | 2022-04-07 07:23 | XMS_ITS | Encounter Summary ---
:1955 Author Organization [email or web address] Address [address] [place] [address] Care Team Providers Name Role Phone Alisha Kimball MD Primary Care Provider Encounter Details Date Type Department Care Team Description [facility]/27[facility] [address] [facility] [address] [facility] [place] [address] [place] [address] (Wo rk) Social History Tobacco Use Types Packs/Day Years Used Date Smoking Tobacco: Never Smokeless Tobacco: Never Alcohol Use Standard Drinks/Week Comments No 0 (1 standard drink = 0.6 oz pure alcoho l) Sex Assigned at Date Recorded Not on file documented as of this encounter Progress Notes Elvin Hoffman CMA - 04/27/2018 9:23 AM CDT Reviewed and pt notified. Elvin Hoffman CMA 04/27/2018, 9:23 AM documented in this encounter Nursing Notes Interface, Out Surescripts Prov Query - 04/27/2018 1:37 AM CDT ORDER THE FOLLOWING: - HEMOGLOBIN A1C: Pended to encounter. - LAST QUALIFYING VISIT IN [facility]: 12/07/2017 - NEXT SCHEDULED VISIT: None - NEXT LAB VISIT,APPOINTMENT: 05/23/2018 We recently received a refill request on one of your medications. While reviewing your chart, we noticed that you are going to be due for lab work within the next 3 months for the following medication: METFORMIN XR (GLUCOPHAGE XR) 500 MG 24 HOUR RELEASE TABLET You can schedule your appointment online at oNoise or by calling the appointment center at the phone number listed above. Thank you for choosing [facility] Powered by [employer], Reference: [id number], 04/27/2018 1:37:44 AM CDT, Pool: ARNOLD AMEZQUITA RN ([id number]) Interface, Out [email or web address] Query - 04/27/2018 1:37 AM CDT The following lab order(s) may be associated with the Result Note below: AST Notes Recorded by Dallas Nguyen RN on 11/26/2017 at 12:44 PM Letter sent with normal AST/ALT lab results. Dallas Nguyen RN 11/26/2017, 12:44 PM documented in this encounter Plan of Treatment Not on filedocumented as of this encounter Results (ABNORMAL) Hgb A1c (05/23/2018 7:45 AM CARPENTER) P athologist Signature Hgb A1c 8.2 (H) [...] Volume Laterality 05/23/2018 7:45 AM 8 7:46 CARPENTER AM CARPENTER Narrative [facility] - 05/23/2018 2:[address] Performed at [facility], [address] [place] [address] ??[id number] Alisha Kimball MD LAB_1 Performing Organization Address City/State/[facility] Code Phon e Number [facility] [phone] documented in this encounter Visit Diagnoses Diagnosis Encounter for long-term (current) use of medications - Primary Encounter for long-term (current) use of other medications Encounter for long-term (current) use of medications Encounter for long-term (current) use of other medications documented in this encounter Care Teams Stitcher Utility Relationship Specialty Start Date End Date Alisha Kimball MD PCP - General 07/08/05 [address] [place] [address] documented as of this encounter
--- OUTSIDE RECORDS SUMMARY | 2022-04-07 07:23 | XMS_ITS | Encounter Summary ---
:1955 Author Organization [facility] Address [address] [address] Care Team Providers Name Role Phone Carroll Avalos MD Primary Care Provider Reason for Visit Reason Comments Refill metFORMIN XR (GLUCOPHAGE XR) 500 MG 24 hour release tablet [Pharmacy Med Name: METFORMIN ER 500 MG TABLET] Encounter Details Date Type Department Care Team Description [facility] (metFORMIN XR [address] [facility] [address] (GLUCOPHAGE XR) [address] [place] [address] [place] [address] 24 hour release tablet [id number] (Wo rk) [Pharmacy Med Name: METFORMIN ER 500 MG TABLET]) Social History Tobacco Use Types Packs/Day Years Used Date Smoking Tobacco: Never Smokeless Tobacco: Never Alcohol Use Standard Drinks/Week Comments No 0 (1 standard drink = 0.6 oz pure alcoho l) Sex Assigned at Date Recorded Not on file documented as of this encounter Nursing Notes Denice Faust RN - 01/31/2018 11:30 AM CDT per standing order Denice Faust RN Interface, Out Surescripts Prov Query - 01/30/2018 1:20 AM CDT metFORMIN XR (GLUCOPHAGE XR) 500 MG 24 hour release tablet [Pharmacy Med Name: METFORMIN ER 500 MG TABLET] Diabetes - Biguanides -> The most recent order on 12/07/2017. -> HgbA1C is not needed if being used for polycystic ovary treatment -> Refill x 6 months, qty: 360, refills: 1 (until due for a(n) HBA1C check) Last qualifying visit: 12/07/2017 (in [facility]) Next scheduled visit: None Last ordered by CARROLL AVALOS K: 12/07/2016 (419 days ago) QTY: 360, Refills: 11, Sig: take 4 tabs by mouth daily with breakfast. (changed but equivalent) Cr: 0.86 mg/dL on 11/26/2017 HBA1C: 7.7 % on 11/26/2017 Powered by [employer], Reference: [id number], 01/30/2018 1:20:32 AM CDT, Pool: ARNOLD AMEZQUITA RN ([id number]) Interface, Out [employer] Prov Query - 01/30/2018 1:20 AM CDT The following lab order(s) may be associated with the Result Note below: AST Notes Recorded by Dallas Nguyen RN on 11/26/2017 at 12:44 PM Letter sent with normal AST/ALT lab results. Dallas Nguyen RN 11/26/2017, 12:44 PM documented in this encounter Plan of Treatment Not on filedocumented as of this encounter Visit Diagnoses Not on filedocumented in this encounter Care Teams Recreation Counselor Relationship Specialty Start Date End Date Carroll Avalos MD PCP - General 07/08/05 [address] [place] [address] documented as of this encounter
--- OUTSIDE RECORDS SUMMARY | 2022-04-07 07:23 | XMS_ITS | Encounter Summary ---
:1955 Author Organization [facility] Address [address], [place] [address] Care Team Providers Name Role Phone Carroll Kimball MD Primary Care Provider Reason for Visit Reason Comments Refill amLODIPine (NORVASC) 5 MG ta blet [Pharmacy Med Name: AMLODIPINE BESYLATE 5 MG TAB] Encounter Details Date Type Department Care Team Description 04/28/2018 Refill [facility] ice Carroll Kimball MD Refill (amLODIPine [address] [facility] [address] (NORVASC) 5 [place] [address] [place] [address] [Pharmacy Med Name: [phone] (Wo rk) AMLODIPINE BESYLATE 5 MG TAB]) Social History Tobacco Use Types Packs/Day Years Used Date Smoking Tobacco: Never Smokeless Tobacco: Never Alcohol Use Standard Drinks/Week Comments No 0 (1 standard drink = 0.6 oz pure alcoho l) Sex Assigned at Date Recorded Not on file documented as of this encounter Nursing Notes Shanta Paez RN - 04/28/2018 12:11 PM CDT Per standing order Shanta Paez RN Interface, Out Surescripts Prov Query - 04/28/2018 1:40 AM CDT amLODIPine (NORVASC) 5 MG tablet [Pharmacy Med Name: AMLODIPINE BESYLATE 5 MG TAB] Cardiovascular - Calcium Channel Blockers -> Refill x 9 months, qty: 90, refills: 2 (until due for an office visit) Last qualifying visit: 12/07/2017 (in [facility]) Next scheduled visit: None Last ordered by CARROLL KIMBALL: 05/11/2017 (352 days ago) QTY: 90, Refills: 3, Sig: take one tabletby mouth every day (changed but equivalent) SBP: 134 mm Hg on 04/25/2018 DBP: 88 mm Hg on 04/25/2018 Powered by [employer], Reference: [id number], 04/28/2018 1:40:49 AM CDT, Pool: ARNOLD REFILL RN ([id number]) documented in this encounter Plan of Treatment Not on filedocumented as of this encounter Visit Diagnoses Not on filedocumented in this encounter Care Teams Electrician Supervisor Relationship Specialty Start Date End Date Carroll Kimball MD PCP - General 07/08/05 [address] [place] [address] documented as of this encounter
--- OUTSIDE RECORDS SUMMARY | 2022-04-07 07:23 | XMS_ITS | Encounter Summary ---
:1955 Author Organization [employer] Address [address], [place] [address] Care Team Providers Name Role Phone Alisha Kimball MD Primary Care Provider Reason for Visit Reason Comments Broken Tooth Encounter Details Date Type Department Care Team Description 02/22/2018 Telephone [facility] Unassigned, Provider Broken [facility]oth Dentistry [id number] [place] [address] Social History Tobacco Use Types Packs/Day Years Used Date Smoking Tobacco: Never Smokeless Tobacco: Never Alcohol Use Standard Drinks/Week Comments No 0 (1 standard drink = 0.6 oz pure alcoho l) Sex Assigned at Date Recorded Not on file documented as of this encounter Nursing Notes Michelle Quintero I - 02/22/2018 12:24 PM CDT EMERGENCY/PROBLEM FOCUS PRIOR VISIT QUESTIONNAIRE 1. Have you ever been seen in our office before? [] No [x] Yes Last Seen: [x] Less than 5 years [] 5 years or more Comments: 2. What is causing your problem? [] Accident [] Lost Samaritan [x] Broken Tooth [] Chipped Tooth [] Toothache Location: [] Upper Left [] Lower Left [] Upper Front [] Lower Front [x] Upper Right [] Lower Right Comments: 3. What kind of discomfort are you in? [] No Discomfort [] Awake Last Night [] Radiating Pain [] Throbbing Pain Comments: back side feels sharp 4. When does the discomfort occur? [] Cold Sensitive [] Constantly [] Pressure Sensitive [] Hot Sensitive [] Occasionally [] Other (fill in comments) Comments: 5. How long has the degree of discomfort lasted? [] Longer Duration [x] Other (enter duration in comments) Comments: Broke off today Are you experiencing any other signs or symptoms? [] Bleeding/Oozing [] Fever [] Other (list other signs/symptoms in comments) Comments: Are you taking medications for this problem? [x] No [] Yes (list meds in comments) Comments: 6. Have you been advised to take antibiotics prior to dental treatment? [x] No [] Yes Comments: documented in this encounter Plan of Treatment Not on filedocumented as of this encounter Visit Diagnoses Not on filedocumented in this encounter Care Teams Report Specialist Relationship Specialty Start Date End Date Alisha Kimball MD PCP - General 07/08/05 [address] [place] [address] documented as of this encounter
--- OUTSIDE RECORDS SUMMARY | 2022-04-07 07:23 | XMS_ITS | Encounter Summary ---
:1955 Author Organization [facility] Address [address] [place] [address] Care Team Providers Name Role Phone Alisha Kimball MD Primary Care Provider Reason for Visit Reason Comments Orders Needed Encounter Details Date Type Department Care Team Description 05/02/2018 Telephone [facility] Alisha Steinberg MD Orders Needed [address] [place] [address] [place], [place] [id number] (Wo rk) Social History Tobacco Use Types Packs/Day Years Used Date Smoking Tobacco: Never Smokeless Tobacco: Never Alcohol Use Standard Drinks/Week Comments No 0 (1 standard drink = 0.6 oz pure alcoho l) Sex Assigned at Date Recorded Not on file documented as of this encounter Nursing Notes Anitra Bustillos CMA - 05/02/2018 1:59 PM CDT Pt informed and agreed w/ plan. Alisha Kimball MD - 05/02/2018 1:03 PM CDT Just the A1C. Thanks! Alisha Kimball MD Anitra Bustillos CMA - 05/02/2018 12:03 PM CDT Pt has lab appointment next month. A1C order in chart. Pt wanted to confirm if she needed any other labs due to medication she is taking. BMP normal November 2017. Outpatient Medications Prior to Visit Medication Sig Dispense Refill ??? amLODIPine (NORVASC) 5 MG tablet TAKE 1 TABLET BY MOUTH DAILY 90 Tablet 2 ??? apixaban (ELIQUIS) 5 MG tablet Take 1 Tablet by mouth two times a day. 180 Tablet 0 ??? atorvastatin (LIPITOR) 10 MG tablet TAKE 1 TABLET BY MOUTH EVERY DAY 90 Tablet 3 ??? blood glucose (ACCU-CHEK STACEY PLUS) test strip Use to test two times a day. Use as directed. Pharmacy dispense brand based on insurance. 200 Each 3 ??? blood glucose monitoring device Dispense 1 meter. 1 Each PRN ??? desoximetasone (TOPICORT) 0.25 % cream Apply to affected area twice daily for 1-2 weeks. Not forface. 60 g 1 ??? fluticasone (FLONASE) 50 MCG/ACT nasal solution Place 1 Island into both nostrils daily. decreaseto 1 spray [...] 4 TABLETS BY MOUTH DAILY WITH BREAKFAST 360 Tablet 1 ??? metoprolol succinate (TOPROL-XL) 200 MG 24 hour release tablet Take 1 Tab by mouth daily at bedtime. 90 Tab 3 ??? traZODone (AKA DESYREL) 50 MG tablet Take 0.5-2 Tabs by mouth daily at bedtime. 30 Tab 5 No facility-administered medications prior to visit. Vero Robin - 05/02/2018 10:42 AM CDT Orders - Laboratory [[facility]: If this call is after 3 p.m., communicate to patient: If we are not able to get back to you by the end of the day and your symptoms worsen please contact the Careline at [phone] OR at .] What lab order is being requested? Patient has future lab apppointment for A1c and would like to know if she is due for any other labs in regards too her metoprolol & eliquist medications prior to future refills on these medications Why is this order being requested future refills on medication, patient doesn't want to have to comein twice for a lab visit Have you been seen recently for this concern? No [[facility]:If patient was seen at an outside location, please obtain records] Is it okay to leave a detailed message on your voicemail? Yes [[facility]: Instruct patient to check with insurance company for coverage] Is there anything else I can help you with today? Vero Robin Please route to: Care Team Pool documented in this encounter Plan of Treatment Not on filedocumented as of this encounter Visit Diagnoses Not on filedocumented in this encounter Care Teams Naval Marine Engineer Relationship Specialty Start Date End Date Alisha Kimball MD PCP - General 07/08/05 [address] [place] [address] documented as of this encounter
--- OUTSIDE RECORDS SUMMARY | 2022-04-07 07:23 | XMS_ITS | Encounter Summary ---
:1955 Author Organization [facility] Address [address] [place] [address] Care Team Providers Name Role Phone Alisha Kimball MD Primary Care Provider Reason for Visit Reason Comments [facility] 5 Encounter Details Date Type Department Care Team Description 05/13/2018 Office Visit [facility] [place] D[place] [address] [place] [address] [facility] [place], Exam Services (5) [address] [place] [address] Social History Tobacco Use Types Packs/Day Years Used Date Smoking Tobacco: Never Smokeless Tobacco: Never Alcohol Use Standard Drinks/Week Comments No 0 (1 standard drink = 0.6 oz pure alcoho l) Sex Assigned at Date Recorded Not on file documented as of this encounter Progress Notes Jamaal [place] DDS - 05/13/2018 1:50 PM CST DENTAL VISIT NOTE Loc (63 y.o.) was seen today for [facility] (5) CHART REVIEW Reviewed health history, dental history, problem list, periodontal charting and radiographs with thepatient. TREATMENT DISCUSSION Discussed the dental findings, prognosis and treatment options with the patient. All questions were answered and the the patient gave informed consent to proceed with treatment/services. PROCEDURES PERFORMED AT THIS VISIT ANESTHESIA Topical with 20% benzocaine. 1.0 carpules 4% septocaine with 1:100,000 epinephrine was administered with infiltration in #5. There were no adverse side effects observed. Anesthesia delivered by Jamaal [place] DDS CROWN AND BRIDGE PREP Preoperative radiograph was reviewed Prepared #5 with minimal removal of tooth structure Isolation with high speed suction and cheek guard Retraction cord (with chemical hemostatic agent). The polyvinyl siloxane impression material was made with triple tray in 1 M1 shade. Imprint and genie wash. Temporary BIS-GMA crown material seated with non-eugenol Verified occlusion, contacts, margins, aesthetics and cement removal. Patient was advised of post op sensitivity and gingival soreness NEXT VISIT Next planned visit is crown seat #5 Care was assisted by Dari [place] DDS 05/13/2018, 3:20 PM Completed dental procedures in this visit ??? 5 PORCELAIN CROWN --End of Note-- CING SALON ATTENDANT documented in this encounter Plan of Treatment Not on filedocumented as of this encounter Procedures Procedure Name Priority Date/Time Associated Diagnosis Comme nts 5 PORCELAIN CROWN Routine 05/13/2018 3:01 PM REDUCING SALON ATTENDANT Fracture of c rown, enamel, and dentin of tooth without pulp exposure documented in this encounter Visit Diagnoses Diagnosis Fracture of crown, enamel, and dentin of tooth without pulp exposure - Primary documented in this encounter Care Teams Veneer Stock Grader Relationship Specialty Start Date End Date Alisha Kimball MD PCP - General 07/08/05 [address] [place] [address] documented as of this encounter
--- OUTSIDE RECORDS SUMMARY | 2022-04-07 07:23 | XMS_ITS | Encounter Summary ---
:1955 Author Organization [facility] Address [address] [place] [address] Care Team Providers Name Role Phone Alisha Kimball MD Primary Care Provider Reason for Visit Reason Comments [facility] 5 Encounter Details Date Type Department Care Team Description 05/31/2018 Office Visit [facility] [place] [address] [place] [address] [facility] [place], Exam Services ([phone] [address] [place] [address] Social History Tobacco Use Types Packs/Day Years Used Date Smoking Tobacco: Never Smokeless Tobacco: Never Alcohol Use Standard Drinks/Week Comments No 0 (1 standard drink = 0.6 oz pure alcoho l) Sex Assigned at Date Recorded Not on file documented as of this encounter Progress Notes Jamaal [place] DDS - 05/31/2018 3:30 PM CST DENTAL VISIT NOTE Loc (63 y.o.) was seen today for [facility] (5) CHART REVIEW Reviewed health history, dental history, problem list, periodontal charting and radiographs with thepatient. TREATMENT DISCUSSION Discussed the dental findings, prognosis and treatment options with the patient. All questions were answered and the the patient gave informed consent to proceed with treatment/services. PROCEDURES PERFORMED AT THIS VISIT CROWN AND BRIDGE SEAT #5 crown cementation with resin-modified glass ionomer Radiographs made with druze in place and reviewed. Verified occlusion, contacts, margins, aesthetics and cement removal. Adjusted and polished proximalcontacts, patient comfortable Patient was advised of normal post-operative instructions. NEXT VISIT Next planned visit is prophy. Care was assisted by pablo [place] DDS 05/31/2018, 3:49 PM Completed dental procedures in this visit ??? 5 CROWN SEAT --End of Note-- DUMPER documented in this encounter Plan of Treatment Not on filedocumented as of this encounter Procedures Procedure Name Priority Date/Time Associated Diagnosis Comme nts 5 CROWN SEAT Routine 05/31/2018 3:30 PM MOLD DUMPER Fracture of tooth enamel and dentin documented in this encounter Visit Diagnoses Diagnosis Fracture of tooth enamel and dentin - Pr imary documented in this encounter Care Teams Application Dba Relationship Specialty Start Date End Date Alisha Kimball MD PCP - General 07/08/05 [address] [place] [address] documented as of this encounter
--- OUTSIDE RECORDS SUMMARY | 2022-04-07 07:23 | XMS_ITS | Encounter Summary ---
:1955 Author Organization [email or web address] Address [address] [place] [address] Care Team Providers Name Role Phone Alisha Kimball MD Primary Care Provider Reason for Visit Reason Comments MEDICATION THERAPY MANAGEMENT Encounter Details Date Type Department Care Team Description 04/25/2018 Office Visit [facility] Izaiah Lema, Type 2 diabetes [address] [facility] [place] [place] [address] complication, without [phone] [place], [place] long-term cur rent use [address] of insulin (HRC) [phone] (Primary Dx) (Work) Social History Tobacco Use Types Packs/Day Years Used Date Smoking Tobacco: Never Smokeless Tobacco: Never Alcohol Use Standard Drinks/Week Comments No 0 (1 standard drink = 0.6 oz pure alcoho l) Sex Assigned at Date Recorded Not on file documented as of this encounter Last Filed Vital Signs Vital Sign Reading Time Taken Comments Blood Pressure 134/88 04/25/2018 8:16 AM CDT Pulse 61 04/25/2018 8:16 AM CDT Temperature - - Respiratory Rate - - Oxygen Saturation - - Inhaled Oxygen Concentration - - Weight - - Height - - Body Mass Index - - documented in this encounter Patient Instructions Patient InstructionsIzaiah Lema, PharmD - 04/25/2018 8:00 AM CDT Plan 1) A1c lab in 2 weeks. 2) Intensify effort with diet and weight loss (10-15 lbs) 3)Suggest holding magnesium to see if any improvement in stool. Melia to check with member services to see if MTM benefit will continue on new insurance plan. Follow up with MTM Pharmacist in 6 months. Rx considerations: add SGLT-2. documented in this encounter Progress Notes Izaiah Lema, PharmD - 04/25/2018 8:00 AM CDT Subjective Loc Velasco is a 63 y.o. old female is seen today for follow up on diabetes as part of the [facility] program. Last MTM encounter was 6 months ago. There have been no changes in medications since that appointment. Melia plans to retire in July 2018. Current diabetes Tx: metformin ER 1000 mg BID Previous use of other DM medications not identified. BG Monitorin-2 times daily BG levels reported via self-report: - fasting AM: around 130 - less than 130 when checks later in the day, but does not check 2h PP Hypoglycemia frequency: no DM complications: -Renal: neg for albuminuria - on ARB -Neurologic: neg for peripheral sensory neuropathy. -Ophthalmologic: neg for diabetic retinopathy Diagnosed ASCVD: no. CVWizard Summary:Risk for a heart attack or stroke in the next 10 years is 13.37%. On atorvastatin 10 mg daily. H/o elevated transaminases and fatty liver. Non smoker. BP reasonably controlled on losartan 50 mg and amlodipine 5 mg daily. Also takes metoprolol succinate 200 mg at HS for pAFib. Aspirin not indicated as she is taking apixaban. BP Readings from Last 3 Encounters: 04/25/18 134/88 02/07/18 131/77 12/07/17 128/75 + palpitations Denies chest pain/pressure, increased edema, exertional dyspnea. Last comprehensive foot exam: December 2016 Last dilated eye exam: January 2018 Physical activity:30 minutes or more, >3-5 times per week. [place] Getting next summer so has goal of losing weight. Diet: three meals a day - contemplating plant based diet. Lean protein snack in the evening. Patient endorses ease of bruising and chronic sleep problems. Also having occasional episodes of diarrhea in the early AM hours. Patient denies dizziness, lightheadedness, drowsiness, bleeding, cough, nausea, vomiting, abdominal pain, constipation, urination problems, muscle aches, weakness, fatigue, cramping, headache, mood changes, or rash felt to be related to medication use. Adherence: # of missed doses in the past week: 0 Objective Adherence: Ability to assess medication adherence objectively: Able. According to VMAT, patient adherence is: Good - > 80% adherent to all chronic medications. Allergies for Loc Velasco Status Agent Date Noted Reaction Type Active SULFA ANTIBIOTICS 02/25/2005 Redness Swelling Social History Substance Use Topics ??? Smoking status: Never Smoker ??? Smokeless tobacco: Never Used ??? Alcohol use No Hgb A1c (%) Date Value 11/26/2017 7.7 (H) Creatinine (mg/dl) Date Value 11/26/2017 0.86 Potassium (mmol/L) Date Value 11/26/2017 4.3 Sodium (mmol/L) Date Value 11/26/2017 139 Ratio (mg/g creatinine) Date Value 12/02/2017 5 Cholesterol (mg/dl) Date Value 11/26/2017 162 HDL (mg/dl) Date Value 11/26/2017 41 LDL, Calc. (mg/dl) Date Value 11/26/2017 96 Triglyceride (mg/dl) Date Value 11/26/2017 123 ALT (SGPT) (U/L) Date Value 11/26/2017 44 AST (SGOT) (U/L) Date Value 11/26/2017 26 Lab Results Component Value Date/Time TSH 1.84 12/01/2016 07:14 AM BP 134/88 (BP Location: Right Arm, BP Cuff Size: Adult Regular) Pulse 61 Estimated body mass index is 32.7 kg/(m^2) as calculated from the following: Height as of 12/07/17: 5' 4.25 (1.632 m). Weight as of 12/07/17: 192 lb (87.1 kg). Assessment BP goal: <130/80. Pt is not at goal. LDL goal: moderate intensity statin. Pt is at goal. HgbA1C goal: <7%. Pt is not at goal. 1. Diabetes and metformin. Effectiveness - Lab monitoring needed. Status: Pending 2. Loose stool possibly caused by magnesium or metoprolol. Could also be dietary. Plan 1) A1c lab in 2 weeks. 2) Intensify effort with diet and weight loss (10-15 lbs) 3)Suggest holding magnesium to see if any improvement in stool. Melia to check with member services to see if MTM benefit will continue on new insurance plan. Follow up with MTM Pharmacist in 6 months. Rx considerations: add SGLT-2. Updated Kromatid med list and reviewed medications including indications with patient. Total time spent with patient 30 minutes. Anen PreciadoD, [facility] Clinical Pharmacist Medication Therapy Management Program Recipient of visit: Patient Medicare CI: no # of DTPs: 1 # of DTPs resolved: 1 documented in this encounter Plan of Treatment Not on filedocumented as of this encounter Visit Diagnoses Diagnosis Type 2 diabetes mellitus without complic ation, without long-term current use of insulin (HRC) - Primary documented in this encounter Care Teams Out Patient Therapist Relationship Specialty Start Date End Date Alisha Kimball MD PCP - General 07/08/05 [address] [place] [address] documented as of this encounter
--- OUTSIDE RECORDS SUMMARY | 2022-04-07 07:23 | XMS_ITS | Encounter Summary ---
:1955 Author Organization [facility] Address [address] [facility] [place] [address] Care Team Providers Name Role Phone Alisha Kimball MD Primary Care Provider Reason for Visit Reason Comments Diabetic Exam, Yearly RAMIN: 01/18 Dr. Keller. Last A1 C: 7.7 Last BS: 130 in the am. No vision changes or complaints . Poked OD December 22 and has been on drops 4 times a day. Call ed nurse line and was able to be treated. 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 [address] [address] [facility] [phone] [place], [place] [id number] Social History Tobacco Use Types Packs/Day Years Used Date Smoking Tobacco: Never Smokeless Tobacco: Never Alcohol Use Standard Drinks/Week Comments No 0 (1 standard drink = 0.6 oz pure alcoho l) Sex Assigned at Date Recorded Not on file documented as of this encounter Patient Instructions Patient InstructionsEric Keller, OD - 01/18/2018 2:20 PM CDT Mild diabetic vessel change in the right eye similar to last year. Does not affect your vision. Keepthe blood sugar well controled and it will heal. Return 1 year documented in this encounter Progress Notes Eric Keller, OD - 01/19/2018 12:23 AM CDT HPI Chief Complaint Patient presents with ??? Diabetic Exam, Yearly RAMIN: 01/18 Dr. Keller. Last A1C: 7.7 Last BS: 130 in the am. No vision changes or complaints. Poked OD December 22 and has been on drops 4 times a day. Called nurse line and was able to be treated. wears OTC +2.00 Routine Eye Exam Loc Velasco is a 62 y.o. year old female here for a routine eye exam. Diabetes is Type II (adult) and is managed by oral meds. 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
--- OUTSIDE RECORDS SUMMARY | 2022-04-07 07:23 | XMS_ITS | Encounter Summary ---
:1955 Author Organization [facility] Address [address] [place] [address] Care Team Providers Name Role Phone Alisha Kimball MD Primary Care Provider Reason for Visit Reason Onset Date Comments Refill 03/16/2018 Encounter Details Date Type Department Care Team Description 03/16/2018 Refill [facility] Janice Gill , PAMehreenC Refill Cardiology [address] [place] [address] Social History Tobacco Use Types Packs/Day Years [...] on filedocumented in this encounter Care Teams Boring Machine Set Up Operator Jig Relationship Specialty Start Date End Date Alisha Kimball MD PCP - General 07/08/05 [address] [place] [address] documented as of this encounter
--- OUTSIDE RECORDS SUMMARY | 2022-04-07 07:24 | XMS_ITS | Encounter Summary ---
:1955 Author Organization [facility] Address [address] [place] [address] Care Team Providers Name Role Phone Alisha Kimball MD Primary Care Provider Reason for Referral Procedure/Equipment (Routine) - Incomplete Specialty Diagnoses / Procedures Referred By Contact Refer red To Contact Diagnoses Snoring Excessive daytime sleepiness Alvarado Friedman MD [address] [place] [id number] Referral ID Status Reason Start Date Expiration Date Visits V isits Requested Authorized [id number] Incomplete 03/30/2017 06/29/2018 1 1 Scheduling Instructions Your provider has placed a sleep service s referral. This referral will be reviewed by a sleep specialist and you will be conta cted to schedule one of the following visits or procedures based upon this expert rev iew: Consultation/Office Visit with a Sleep Medicine Specialist Consultation/Office Visit with an Insom sebas Specialist In-Center Overnight Sleep Study Portable/Home Sleep Test If you do not hear from our scheduling s taff within the next 7 days, please contact us at [phone]. Procedure/Equipment (Routine) - Closed Specialty Diagnoses / Procedures Referred By Contact Refer red To Contact Diagnoses PAF (paroxysmal atrial fibrillation) ([facility]) Alvarado Friedman MD [address] [place] [id number] Referral ID Status Reason Start Date Expiration Date Visits Requ ested Visits Authorized [id number] Closed 03/30/2017 06/29/2018 1 1 Scheduling Instructions You will be contacted within a week by bk cárdenas regarding your monitor applications support specialist. This recommended service may not be cove red by your insurance coverage. We suggest you call your health insurance company a bout your coverage and benefits for this appointment. Procedure/Equipment (Routine) - Closed Specialty Diagnoses / Procedures Referred By Contact Refer red To Contact Diagnoses PAF (paroxysmal atrial fibrillation) ([facility]) Alvarado Friedman MD [address] [place] [address] Referral ID Status Reason Start Date Expiration Date Visits Requ ested Visits Authorized [id number] Closed 03/30/2017 06/29/2018 1 1 Scheduling Instructions Your provider has recommended an appoint ment with [facility]iology. You may call [phone] to schedule your appoi ntment. If you prefer, a project scheduler will contact you within the next 3 business d ays to assist you in setting up this appointment. We suggest you call your [facility] insurance company about your coverage and benefits for this appointment. Reason for Visit Reason Comments CONSULT Consult/Transfer Care (Routine) - Closed Specialty Diagnoses / Procedures Referred By Contact Refer red To Contact Diagnoses Syncope, [place] [address] [place], [place] [address] Referral ID Status Reason Start Date Expiration Date Visits Requ ested Visits Authorized [id number] Closed 03/23/2017 06/22/2018 1 1 Encounter Details Date Type Department Care Team Description 03/30/2017 Office Visit [facility] Alvarado Friedman P AF (paroxysmal atrial fibrillation) ([facility]) (Primary Dx); Cardiology Pre-syncope; [address] [place] [address]. [address] [place] [address] Syncope and collapse; [place] [address] [place], [place] Snoring; [phone] Excessive daytime sleepiness Social History Tobacco Use Types Packs/Day Years Used Date Smoking Tobacco: Never Smokeless Tobacco: Never Alcohol Use Standard Drinks/Week Comments No 0 (1 standard drink = 0.6 oz pure alcoho l) Sex Assigned at Date Recorded Not on file documented as of this encounter Last Filed Vital Signs Vital Sign Reading Time Taken Comments Blood Pressure 146/97 03/30/2017 8:43 AM CDT Pulse 74 03/30/2017 8:43 AM CDT Temperature - - Respiratory Rate 18 03/30/2017 8:43 AM CDT Oxygen Saturation 99% 03/30/2017 8:43 AM CDT Inhaled Oxygen Concentration - - Weight 82.9 kg (182 lb 12 oz) 03/30/2017 8:43 AM CDT Height 163 cm (5' 4.17) 03/30/2017 8:43 AM CDT Body Mass Index 31.2 03/30/2017 8:43 AM CDT documented in this encounter Patient Instructions Patient InstructionsAlvarado Friedman MD - 03/30/2017 8:[address] Friedman recommends that you... 1) Please schedule an appt. to have an Echocardiogram at your earliest convenience. DATE: TIME: 2) Please schedule an appt. to have an Event monitor placed as soon as available. DATE: TIME: 3) Start taking Metoprolol Tartrate 12.5 mg twice daily. Call clinic if you experience heart palpitations. 4) A referral for a sleep study has been made, you will be contact in the next few days. 5) Follow up in the Heart Center in 4-6 weeks with an Advanced Care Provider. Thank you for choosing [facility] for your Cardiology care. You may contact us at [facility] at [phone]. After hours, you may contact the Care Line at [phone] or . Learning About Atrial Fibrillation What is atrial fibrillation? Atrial fibrillation (say AY-tree-rosendo izx-ebkl-XED-shun) is the most common type of irregular heartbeat (arrhythmia). Normally, the heart beats in a strong, steady rhythm. In atrial fibrillation, a problem with the heart's electrical system causes the two upper parts of the heart (the atria) to quiver, or fibrillate. Your heart rate also may be faster than normal. Atrial fibrillation can be dangerous because if the heartbeat isn't strong and steady, blood can collect, or pool, in the atria. And pooled blood is more likely to form clots. Clots can travel to the brain, block blood flow, and cause a stroke. Atrial fibrillation can also lead to heart failure. Treatment for atrial fibrillation helps prevent stroke and heart failure. It also helps relieve symptoms. Atrial fibrillation is often caused by another heart problem. It may happen after heart surgery. It may also be caused by other problems, such as an overactive thyroid gland or lung disease. Many people with atrial fibrillation are able to live full and active lives. What are the symptoms? Some people feel symptoms when they have episodes of atrial fibrillation. But other people don't notice any symptoms. If you have symptoms, you may feel: ?? A fluttering, racing, or pounding feeling in your chest called palpitations. ?? Weak or tired. ?? Dizzy or lightheaded. ?? Short of breath. ?? Chest pain. ?? Confused. You may notice signs of atrial fibrillation when you check your pulse. Your pulse may seem uneven orfast. What can you expect when you have atrial fibrillation? At first, spells of atrial fibrillation may come on suddenly and last a short time. It may go away on its own or it goes away after treatment. This is called paroxysmal atrial fibrillation. Over time, the spells may last longer and occur more often. They often don't go away on their own. How is it treated? Treatments can help you feel better and prevent future problems, especially stroke and heart failure. The main types of treatment slow the heart rate, control the heart rhythm, and help prevent stroke. Your treatment will depend on the cause of your atrial fibrillation, your symptoms, and your risk forstroke. ?? Heart rate treatment. Medicine may be used to slow your heart rate. Your heartbeat may still be irregular. But these medicines keep your heart from beating too fast. They may also help relieve your symptoms. ?? Heart rhythm treatment. Different treatments may be used to try to stop atrial fibrillation and keep it from returning. They can also relieve symptoms. These treatments include medicine, electrical cardioversion to shock the heart back to a normal rhythm, a procedure called catheter ablation, and heart surgery. ?? Stroke prevention. You and your doctor can decide how to lower your risk. You may decide to take a blood-thinning medicine, such as aspirin or an anticoagulant. How can you live well with it? You can live well and help manage atrial fibrillation by having a heart-healthy lifestyle. To have a heart-healthy lifestyle: ?? Don't smoke. ?? Eat heart-healthy foods. ?? Be active. Talk to your doctor about what type and level of exercise is safe for you. ?? Stay at a healthy weight. Lose weight if you need to. ?? Manage stress. ?? Avoid alcohol if it triggers symptoms. ?? Manage other health problems such as high blood pressure, high cholesterol, and diabetes. ?? Avoid getting sick from the flu. Get a flu shot every year. When should you call for help? Call 911 anytime you think you may need emergency care. For example, call if: ?? You have symptoms of a stroke. These may include: ?? Sudden numbness, tingling, weakness, or loss of movement in your face, arm, or leg, especially ononly one side of your body. ?? Sudden vision changes. ?? Sudden trouble speaking. ?? Sudden confusion or trouble understanding simple statements. ?? Sudden problems with walking or balance. ?? A sudden, severe headache that is different from past headaches. Call your doctor now or seek immediate medical care if: ?? You have new or increased shortness of breath. ?? You feel dizzy or lightheaded, or you feel like you may faint. Watch closely for changes in your health, and be sure to contact your doctor if you have any problems. Follow-up care is a israel part of your treatment and safety. Be sure to make and go to all appointments, and call your doctor if you are having problems. It's also a good idea to know your test results and keep a list of the medicines you take. Where can you learn more? 1. Go to [employer] or [employer]. 2. Enter L274 in the search box. Current as of: September 30, 2015 Content Version: 11.3 ?? 8035-8404 [employer]. Apixaban (Eliquis) Taking an anticoagulant to prevent stroke Apixaban (Eliquis) helps prevent blood clots from forming in the chambers of the heart and reduces the risk of stroke (a blood clot going from the heart to the brain). Apixaban is a useful alternative medication to warfarin (Coumadin, Jantoven) for some people who have atrial fibrillation, an irregular heart rhythm. Taking any anticoagulant medication increases your risk of serious bleeding. Understanding exactly how to take apixaban every day is important. You need to learn to recognize the signs of abnormal bleeding or clotting to minimize complications while taking the medicine. What is apixaban? Apixaban is a newer prescription oral anticoagulant. Apixaban is the generic name for the medication. Eliquis is the brand name. How do I use apixaban? Apixaban is available as a tablet in 2 doses: 5 and 2.5 milligrams (mg). Take the dose your doctor prescribes 2 times a day. Take daily tablets as close to 12 hours apart as possible. Factors that may affect what dose of apixaban you take include your age, weight, health of your kidneys and other medications you may take. Your clinician will decide which dose you should take. You may take apixaban with or without food. What guidelines should I follow in taking apixaban? Tell your clinician if you need to have a medical, surgical or dental procedure. You may need to temporarily stop your apixaban for 1 to 3 days before a medical, surgical or dental procedure, dependingon your situation. Spinal procedures and the use of a certain type of catheter (indwelling epidural catheter) for giving anesthesia or pain medication increase the risk of spinal bleeding (hematoma), which can lead to long-term or permanent paralysis if taking apixaban or any anticoagulant. Do not stop taking the medication without first talking to your doctor. Suddenly stopping apixaban or missing doses increases your risk of stroke. What if I miss a dose? If you miss a dose of apixaban, take that dose as soon as you remember the same day. Never double a dose if you miss a dose. Do not take 2 tablets at the same time. How do I store apixaban? Store the medication at room temperature. How does apixaban work? Apixaban works by blocking a specific blood-clotting factor (substance). This clotting factor is called factor Xa. Various blood-clotting factors are used in the formation of blood clots. Sometimes, people refer to anticoagulant medication as a ???blood thinner.?? An anticoagulant does not actually thin the blood or dissolve a clot. An anticoagulant works by decreasing the risk of abnormal clots from forming, which also can slightly increase the risk of bleeding. How well does apixaban work? Studies have found apixaban works for most people as well as or better than warfarin for stroke prevention when taken as prescribed. Apixaban may be more helpful than warfarin if your INR is often outside the goal range. Apixaban is not prescribed for people who have: ?? Prosthetic (artificial) heart valves ?? Certain heart valve conditions ?? Severe kidney disease ?? Active bleeding or very high risk for bleeding ?? Other clotting diseases, such as blood clots in the leg veins or the lungs or after a heart attack What are the possible side effects of apixaban? The most important possible side effect is bleeding. You are at greater risk of bleeding while taking apixaban if you: ?? Have a history of bleeding ?? Are 80 years or older ?? At high risk of falling ?? Have kidney or liver disease ?? Have had a recent stomach ulcer or other problems with stomach or intestinal bleeding ?? Have spinal surgery or spinal punctures with or without an indwelling epidural catheter ?? Take aspirin products or other nonsteroidal anti-inflammatory drugs, which also increase your risk of bleeding--See ???What do I do about other medications I take??? Although no medication is available to reverse the effects of apixaban on clotting, the effects wearoff faster than the effects of warfarin. Usually, the effects of apixaban wear off within 24 hours of stopping the medication. What should I watch for? Watching for any early signs of abnormal bleeding or clotting is very important. Call 911 or go to the nearest emergency center for: ?? A serious fall with possible or actual injury to the head ?? Coughing up blood ?? Severe, ongoing headaches ?? Vomiting red blood or material that looks like coffee grounds ?? Black or bloody stool (bowel movement) ?? Dark brown or bloody urine ?? Dizziness or visual or speech problems ?? Weakness, numbness or tingling in your limbs ?? Shortness of breath or other breathing problems ?? Chest tightness ?? Swelling of face or tongue ?? Nosebleeds if frequent or heavy and do not stop within 10 to 15 minutes Call your clinic for: ?? Frequent bruises or bruises that continue to get bigger ?? Swellings that feel tender for no clear reason, especially in your legs ?? Bleeding heavily from your gums after brushing your teeth ?? Prolonged bleeding from small cuts ?? Heavy or prolonged menstrual periods Do I need blood testing while taking apixaban? You do not need routine monitoring for medication levels or INR testing while taking apixaban. Although your INR might change while taking apixaban, INR testing does not reflect the level of apixaban in your body. Your doctor will order a blood test to check how your kidneys are working before you start apixaban.The dose of apixaban you take depends on the health of your kidneys. If you have kidney problems, you may need to take the smaller dose of apixaban. Once you start apixaban, you should have a blood test at least 1 time a year, or more often if you are at risk for kidney disease, to check how your kidneys are doing. Tell your doctor if you develop any new kidney problems. What do I do about other medications I take? Certain medications may affect the way apixaban works and increase your risk of bleeding. Tell all clinicians (including emergency center or urgent care doctors, pharmacists and dentists) about taking apixaban and any other prescription and itey-uhz-dsngpqo medications, including herbal supplements and vitamins. In general, avoid the medications listed on Page 6 while taking apixaban, unless your clinician instructs otherwise. Your clinician may give you instructions about other medications you take not listedon Page 6. Talk with your clinician if you have questions. Medications to avoid while taking apixaban Medications to avoid Type of medication Aspirin and aspirin-containing products Analgesic--used to relieve pain, fever and inflammation (swelling) Ibuprofen (Advil, Motrin) Naproxen (Aleve, Naprosyn) Nonsteroidal anti-inflammatory drug (NSAID)--used to treat inflammation Warfarin (Coumadin, Jantoven) Heparin and heparin-containing products Anticoagulant--used to prevent blood clots Clopidogrel (Plavix) Prasugrel (Effient) Antiplatelet--used to prevent blood clots Ketoconazole (Nizoral) Itraconazole (Onmel, Sporanox) Antifungal--used to treat fungal infections Rifampin (Rifater, Rifamate, Rimactane, Rifadin) Antimycobacterial--used to treat certain types of infection [place]???s Wort(Ridgeside perforatum) Herbal product--used to help treat depression Do I need to change my diet while taking apixaban? You do not need to follow any special diet while taking apixaban. Is it OK to drink alcohol? Alcohol does not directly affect how apixaban works in your body. However, drinking too much alcoholcan lead to falls and injury, with an increased risk of bleeding due to taking apixaban. Do I need to change my activities? Because apixaban is an anticoagulant, you must take care if you participate in contact sports or other activities that put you at risk for bruising, cuts or serious injury. The risk for bleeding is higher while on apixaban. You can enjoy most activities, such as golf, biking, sailing or walking. Avoid situations that couldeasily result in cuts or bruises, falling or injury to the head. What other special considerations do I need to take? ?? Apixaban???s effect on an unborn baby is not known. If you are planning to become or are, notify your clinician immediately to discuss potential risks versus benefits of continuingapixaban. ?? If you are or plan to breastfeed, tell your clinician. Whether apixaban passes intobreast milk is not known. ?? Carry a medical identification card in your wallet to indicate you take the anticoagulant apixaban. How long do I need to take apixaban? How long you need to have anticoagulant therapy depends on your diagnosis and medical history. Some people need to take apixaban for only a few months. Other people need to take apixaban indefinitely. As you continue with your therapy, your clinician will be better able to determine the length of yourtherapy. ECHOCARDIOGRAM Your doctor wants you to have a test called an echocardiogram. This test uses ultrasound waves to evaluate your heart muscle and valve function. The test will take 30 minutes to one hour. WHEN IS MY TEST? Your appointment is on: Date: Time: If for any reason you are unable to keep this appointment, please call the [facility] at [phone]. BEFORE THE TEST: You do not need to do anything special to prepare for the test. DURING THE TEST: A addiction specialist will explain the test to you. An ultrasound transducer and gel will be placed on your chest and pictures will be made. Some tests require the use of a contrast solution. This is given through an intravenous needle (IV) that is placed in your hand or arm. The contrast solution helps the flatwork presser take better pictures of your heart. AFTER THE EXAM: Your test results will be sent to your physician, who will discuss the results with you. WHERE DO I GO IF MY TEST IS BEING PERFORMED AT [facility]? If this test is performed in the [facility]In[facility] Lab, it is located on the second (main) floor of [facility]. hvac services professional can direct you to the proper area. Fiber Drier Operator locations are at the main entrance, at the south entrance and at the north entrance. HOW TO GET TO [facility]: [facility] is located at the intersection of [address] and [address], just a few blocks away from the [facility] and the junction of [address] For automated directions, call . PARKING: The [place] parking ramp is the most convenient place to park for Heart Center appointments. The [facility] entrance is off of [address]. To receive a reduction in your parking fee, please ask the Heart [facility] receptionist to validate your parking ticket. WHERE DO I GO IF MY TEST IS BEING PERFORMED AT THE [facility]? Call [phone] for directions. HEART MONITORING TECHNIQUES Please remember to check with your insurance company on your financial responsibility prior to any office visits, procedures, or surgeries. ELECTROCARDIOGRAM (ECG) An ECG may be performed to detect obvious problems, although your physician will only do so if it isfelt that it will yield important data. The ECG allows the doctor to look at the electrical activitythat occurs every time your heart beats. It precisely measures the heart signals looking at 12 different views of the heart muscle, particularly studying its conductive pattern. But as precise as it is, the ECG can only analyze the condition of the heart during the time you arelying on the table with the electrodes attached. It cannot predict whether your heart may perform erratically after the electrodes are removed and you go home. WHAT ARE ARRHYTHMIAS? Cardiac arrythmias are irregularities in the heartbeat. Sometimes you can feel them; sometimes youcan't. Some are not serious and will not be treated while your physician may choose to treat others,either with prescription drugs, a pacemaker or an implantable defibrillator. HOLTER RECORDER If you are having frequent symptoms (like dizziness or heart fluttering) - or your doctor suspects That non-symptomatic arrythmias may be occurring - he or she may choose to perform a Holter. This is asmall recorder that is worn for a 24 or 48 hour period that records your heart activity. When you return after 24/48 hours, the tape is scanned on a special machine while a pathology technician looks for any changes in heartbeat occurring over that 24/48 hour period, whether you felt them or not. While the Holter may show other cardiac arrythmias associated with your heart, it can only record data during the 24 or 48 hour period it is connected to you with electrodes. Sometimes your doctor will be satisfied with the results and not feel that a longer-term monitor is necessary. But at other times the physician may suspect an arrythmia that can only be caught by a memory loop recorder, and thus will want you to wear one to catch the intermittent problem. Sometimes both procedures will be ordered. MEMORY LOOP MONITORING Memory Loop Monitoring is the process of recording the heartbeat over a longer period of time, up to30 days. The longer it is worn the greater the chances of capturing the event. While the Holter has a 24 hour tape that is scanned for cardiac arrythmias, the memory loop recorder (let's call it MLR for short) has a relatively small amount of memory, perhaps only 5-30 minutestotal. But that's all it needs. Some MLR's have only one memory bank while others have multiple memory downs. The first memory bank is the most useful and often all that is needed, so we'll discuss that first. When the patient is connected to the MLR, its memory bank starts filling with ECG data. Typically this bank can store 2-3 minutes of memory, so it takes 2-3 minutes to fill. Once filled, for every new heartbeat that comes in, the MLR throws away the oldest one in memory (because it's no longer needed). We call this a moving window of ECG data. Now when the patient feels something strange and pushes the symptom button, that last two minutes of memory data are frozen in memory. This memory data can now be transmitted to a central receiving center via a standard telephone. [Remember; Since the data is frozen in memory, it is not critical that you [place] to the phone. Get there quickly but safely.] Some recorders are equipped with two or more additional memory downs, which means that if you have asecond or third symptom on the way to the phone, you can push the symptom button again to capture the new events. These are handy but not mandatory. As well, some MLR's can be programmed to record events up to five minutes or more. ANOTHER WAY TO LOOK AT IT.......... Picture in your mind, a bottle of water with a hole in its bottom. As new water is poured into the top and old water leaks out of the bottom, a fresh supply of water is always maintained. Now, drop a marble into the water and pretend that it is a cardiac arrythmia. If you put your fingerover the hole (i.e. Push the Symptom button) fast enough, you'll capture the marble in water (its memory). With the MLR, we've given you two minutes to push that button, but you should push it as soon as youfeel the symptom. BUT WAIT....................... What happens if you haven't filed the bottle with water and the marble is still dropped? Because the bottle doesn't have any memory (water in this case) the marble will exit the hole beforeyou can plug it with your finger!!!! That's exactly what happens if you aren't wearing the MLR when your arrythmia occurs. It is gone before you get the electrodes connected to your skin, and your heart is back in normal rhythm. Thus, if you've just gotten out of the shower and feel a symptom that you want to record, it is simply too late to capture that data. Dry off, connect the electrodes properly and wait for the next one (but if the symptom continues, you can capture it once the electrodes are in place). Likewise, if you are tempted to take the MLR off during sleep or other activity, and feel the symptom that you wanted to capture, it's likely too late to attach the electrodes and capture anything. Thearrythmia, again, is likely gone. [It is for this reason that the recorder and electrodes should always be worn: so they are in place at the time of need! They can not be applied [id number]. They must always be in place so the offending arrythmia can be captured in the memory bank.] YOU'VE HEARD ABOUT CLOSING THE GATE AFTER THE HORSES ARE GONE? THAT'S EXACTLY WHAT HAPPENS WHEN YOU DON'T WEAR THE ELECTRODES WITH A MEMORY LOOP MONITOR. documented in this encounter Progress Notes Alvarado Friedman MD - 03/30/2017 8:40 AM CDT Cardiology Clinic Initial Consultation Note Referring MD: Alisha Kimball MD Reason: syncope, PAF HISTORY OF PRESENT ILLNESS: Loc Velasco is a 62 y.o. female with a history of DM, HTN, HLD who presents for cardiac evaluation. She describes three episodes of syncope. The first episode was last fall that she cannot describein great detail other than she was out walking when she suddenly went down. Awoke quickly without injury or feeling unwell. She does not recall a prodrome. For the past 1-2 months she has felt dizziness/presyncope. She describes it as a wooziness, lightheadedness. No associated CP, SOB, no flushing orfeeling of warmth. Does not recall palpitations with this prodrome. She noted these symptoms when walking around or when standing up quickly. About 3 weeks ago, she had 2 syncopal episodes. The episodes were associated with the dizziness prodrome as described above then passing out for about 20 seconds. No observed seizures activity, no tongue biting, no incontinence. She awoke and felt well, almost refreshed after the episodes. No major injuries with the episodes. She was seen by her PCP who cut her HCTZ in half and told her to drink a lot of fluid. Since that time, she has had no dizziness or syncope. She notes a second issue, that is possibly unrelated. She has had intermittent palpitations. Itdoes not seem to be associated with the dizziness. No associated CP, SOB. If palpitations are prolonged she feels sick to her stomach, fatigued, or BOLAND. She does snore, she has excessive daytime sleepiness. PAST MEDICAL HISTORY: DM HTN HLD FmHx CAD in 50s-60s No CVA No bleeding OUTPATIENT MEDICATIONS: Outpatient Medications Prior to Visit Medication Sig Dispense Refill ??? amLODIPine (NORVASC) 5 MG tablet Take 1 Tab by mouth daily. 90 Tab 4 ??? aspirin (ASPIRIN, ENTERIC-COATED) 81 MG enteric coated tablet Take 81 mg by mouth daily. ??? atorvastatin (LIPITOR) 10 MG tablet TAKE ONE TABLET BY MOUTH EVERY DAY (Patient taking differently: taking 1/2 tablet daily) 90 Tab 3 ??? B-COMPLEX-C OR Take 1 Tab by mouth daily. ??? blood glucose (ACCU-CHEK STACEY PLUS) test strip Use to test two times a day. Use as directed. Pharmacy dispense brand based on insurance. 200 Each 3 ??? blood glucose monitoring device Dispense 1 meter. 1 Each PRN ??? hydroCHLOROthiazide (ORETIC) 25 MG tablet Take 0.5 Tabs by mouth daily. 90 Tab 3 ??? lancets (ACCU-CHEK FASTCLIX LANCETS) Testing blood sugars 1 time(s) a day. Pharmacist may substitute meter/supplies if insurance or patient requires specific equipment or model 102 Each 11 ??? lancets (ACCU-CHEK MULTICLIX LANCETS) Once daily and as needed 100 Each prn ??? losartan (COZAAR) 50 MG tablet Take 1 Tab by mouth daily. 90 Tab 3 ??? MAGNESIUM OR Take 1 Tab by mouth daily. ??? metFORMIN XR (GLUCOPHAGE XR) 500 MG 24 hour release tablet Take 4 Tabs by mouth daily with breakfast. 360 Tab 11 ??? traZODone (AKA DESYREL) 50 MG tablet Take 0.5-2 Tabs by mouth daily at bedtime. 30 Tab 5 No facility-administered medications prior to visit. ALLERGIES: Allergies Allergen Reactions ??? Sulfa Antibiotics Redness and Swelling SOCIAL HISTORY: Non smoker FAMILY HISTORY: Dad had IA in 60s pGFA IA at 59 PGMa had CVA in 70s No afib, dysrhythmias, PPM/ICD, SCD Family History Problem Relation Age of Onset ??? Cancer, Ovary Maternal Grandmother 40's ??? Osteoporosis Maternal Grandmother ??? Cerebrovascular Disease Maternal Grandmother ??? Cancer, Ovary Mother 70's ??? Osteoporosis Mother ??? Diabetes, Type II Mother ??? Hypertension Mother ??? Hyperlipidemia Mother ??? Depression Mother ??? Hypertension Father ??? Coronary Artery Disease Father ??? Hyperlipidemia Father ??? Thyroid Disorder Brother ?Graves disease ??? Diabetes, Type II Brother ??? ADHD Son ??? Glaucoma Negative Family History ??? Macular Degeneration Negative Family History REVIEW OF SYSTEMS: Pertinent positive ROS as discussed above in the HPI. The remainder of the complete review of systems is negative. EXAM Filed Vitals: 03/30/17 0843 BP: (!) 146/97 Pulse: 74 Resp: 18 SpO2: 99% Weight: 182 lb 12 oz (82.9 kg) Height: 5' 4.17 (1.63 m) Gen: Alert and oriented, NAD Neck: No JVD, no carotid bruits Eyes: sclera anicteric Pulm:Clear to auscultation bilaterally CV: RRR, nl S1 & s2, no S3 or S4, no murmurs, rubs, or gallops. Abd: Soft, non-distended Ext: Warm and well perfused, no edema Skin: No rash Neuro: Grossly non-focal Psych: normal affect LABS Lab Results Component Value Date/Time BUN 23 03/04/2017 09:26 AM SODIUM 140 03/04/2017 09:26 AM K 4.4 03/04/2017 09:26 AM CHLORIDE 107 03/04/2017 09:26 AM CO2 23 03/04/2017 09:26 AM GLUCOSE 146 03/04/2017 09:26 AM CREATININE 0.81 03/04/2017 09:26 AM GFR >60 03/04/2017 09:26 AM GFR >60 03/04/2017 09:26 AM CA 10.0 03/04/2017 09:26 AM ANIONGAP 10 03/04/2017 09:26 AM Creatinine (mg/dl) Date Value 03/04/2017 0.81 12/01/2016 0.77 06/15/2016 0.92 Hemoglobin (g/dl) Date Value 03/04/2017 12.9 08/24/2014 14.7 10/30/2013 14.5 WBC (k/ul) Date Value 03/04/2017 7.2 08/24/2014 8.2 10/30/2013 5.4 Hgb A1c (%) Date Value 03/04/2017 7.8 (H) 12/01/2016 7.2 (H) 03/06/2016 6.6 (H) Cholesterol (mg/dl) Date Value 12/01/2016 141 11/30/2015 143 10/27/2014 139 HDL (mg/dl) Date Value 12/01/2016 41 11/30/2015 41 10/27/2014 39 (L) LDL, Calc. (mg/dl) Date Value 12/01/2016 82 11/30/2015 72 10/27/2014 87 Triglyceride (mg/dl) Date Value 12/01/2016 88 11/30/2015 150 (H) 10/27/2014 63 Lab Results Component Value Date/Time TSH 1.84 12/01/2016 07:14 AM EKG 03/04/17: Sinus with PACs holter 03/2017: frequent PACs, PAF Stress 03/2017 ECG Stress Conclusions The patient exercised for 7 minutes 30 seconds on the Pratik protocol. Above average functional capacity for age. Rare 3-18 beat runs of SVT in recovery. No chest pain with exercise. Negative stress ECG for ST segment depression. ? Myocardial Perfusion Conclusions Myocardial perfusion imaging reveals no scan evidence of any significant territory of ischemia or infarction. Left ventricular size and wall motion are normal. Left ventricular ejection fraction is normal, EF 65%. No prior study available. ASSESSMENT: 1. Presyncope/syncope - improved Possibly orthostatic hypotension related to dehydration and medication induced. Symptoms now much improved after decreased in HCTZ and increased PO intake. Cannot definitively exclude associated with dysrhythmia (although symptomatically seems to be separate issue) - therefore will get event monitor. 2. PAF We discussed rate vs rhythm control strategies. I would suggest starting low dose BB and increasing dose as needed for symptom control. Event monitor above will give us some idea if ongoing issues with tachy/keyana Recommend echo to r.o structural heart disease. Recommend screening for MARYANNE Would avoid / minimize caffeine / alcohol 3. CHADSVAS 3 (HTN, DM, female) We discussed risk of stroke associated with afib. We discussed risks/benefits of anticoagulation using [employer] anticoagulation camille We will likely start apixaban 5 mg BID for stroke prevention. However, this was deferred until follow-up visit to ensure issue with syncope has resolved. PLAN: 1. Start metoprolol tartrate 12.5 mg BID 2. Event monitor 3. Echocardiogram 4. Referral to sleep medicine to r/o MARYANNE 5. Follow-up with CAMILLE in 6-8 weeks -- can titrate BB if needed for symptom control, further discussion about apixaban for stroke prevention Thank you for involving me in the care of your patient. If you have any questions or need additionalassistance please do not hesitate to contact me. Alvarado Friedman MD Cardiology Pager [phone] documented in this encounter Plan of Treatment Scheduled Referrals Name Type Priority Associated Diagnoses Order S chedule ECHOCARDIOGRAM Referral Routine PAF (paroxysmal atrial Ord ered: 03/30/2017 fibrillation) (HRC) Event Monitor Referral Routine PAF (paroxysmal atrial Orde red: 03/30/2017 fibrillation) (HRC) documented as of this encounter Visit Diagnoses Diagnosis PAF (paroxysmal atrial fibrillation) (HR C) - Primary Atrial fibrillation Pre-syncope Syncope and collapse Syncope and collapse Snoring Other dyspnea and respiratory abnormalit y Excessive daytime sleepiness documented in this encounter Care Teams Manager Category Relationship Specialty Start Date End Date Alisha Kimball MD PCP - General 07/08/05 [address] [place] [address] documented as of this encounter
--- OUTSIDE RECORDS SUMMARY | 2022-04-07 07:24 | XMS_ITS | Encounter Summary ---
:1955 Author [facility] Address [address] [place] [address] Care Team Providers Name Role Phone Alisha Kimball MD Primary Care Provider Reason for Visit Reason Comments RESULTS, TEST Dr. Roe requested that we contact the patient to let her know that an order was placed for APAP and a follow up. Voicemail was left for patient to return the call. Encounter Details Date Type Department Care Team Description 08/09/2017 [facility] Jonna Roe , RESULTS, TEST ([facility] Carrabelle MD Roe requested that [address] [facility] [address] [place] [address] we [place] the [place] [address] [place] [address] to let her know that [phone] (Wo rk) an order was placed for APAP and a follow up. Voicemail w as left for patient to return the call.) Social History Tobacco Use Types Packs/Day Years Used Date Smoking Tobacco: Never Smokeless Tobacco: Never Alcohol Use Standard Drinks/Week Comments No 0 (1 standard drink = 0.6 oz pure alcoho l) Sex Assigned at Date Recorded Not on file documented as of this encounter Nursing Notes Faye Bishop - 08/09/2017 10:[address] Roe requested that we contact the patient to let her know that an order was placed for APAP and a follow up. Voicemail was left for patient to return the call. ERY RN documented in this encounter Plan of Treatment Not on filedocumented as of this encounter Visit Diagnoses Not on filedocumented in this encounter Care Teams Resort Housekeeper Relationship Specialty Start Date End Date Alisha Kimball MD PCP - General 07/08/05 [address] [place] [address] documented as of this encounter
--- OUTSIDE RECORDS SUMMARY | 2022-04-07 07:24 | XMS_ITS | Encounter Summary ---
:1955 Author Organization [facility] Address [address] [place] [address] Care Team Providers Name Role Phone Alisha Kimball MD Primary Care Provider Reason for Visit Reason Comments MEDICATION REVIEW AND EDUCATION Encounter Details Date Type Department Care Team Description 04/23/2017 Office Visit [facility] Kailey Christine Essential hypertension (Prim levy Dx); [facility] Diabetes mellitus, type 2 (H RC) [place], [place] [id number] Social History Tobacco Use Types Packs/Day Years Used Date Smoking Tobacco: Never Smokeless Tobacco: Never Alcohol Use Standard Drinks/Week Comments No 0 (1 standard drink = 0.6 oz pure alcoho l) Sex Assigned at Date Recorded Not on file documented as of this encounter Last Filed Vital Signs Vital Sign Reading Time Taken Comments Blood Pressure 125/80 04/23/2017 7:41 AM CDT Pulse 57 04/23/2017 7:41 AM CDT Temperature - - Respiratory Rate - - Oxygen Saturation - - Inhaled Oxygen Concentration - - Weight - - Height - - Body Mass Index - - documented in this encounter Patient Instructions Patient InstructionsMarian Davis PharmMelany - 04/23/2017 8:00 AM CDT 1) Continue current medications. Please see me back on October 22, 2017 at 8AM. The appointment has been made for you. Thank you for coming in to see me today. Please do not hesitate to give me a call with any other questions or concerns. Marian Davis PharmD documented in this encounter Progress Notes Marian Davis, Wagner - 04/23/2017 8:00 AM CDT Images from the original note were not included. Subjective Loc Velasco is a 62 y.o. old female who was referred by [employer] for diabetes management/education and HTN management/education. Diabetes: Metformin XR 500 mg (total daily dose: 2000 mg) - patient takes 2 tablets in the morning and 2 tablets in the evening. In the past she used to take all at breakfast, but that had resulted in stomach aches for her. She now reports that is better. Patient reports that she measures her glucose levels once daily in the morning before breakfast. They usually are ~90-100, with her highest reading at 130. Patient denies hypoglycemia. Patient reports tolerating. Patient also reports taking a daily aspirin 81 mg. Hypertension: amlodipine 5 mg daily losartan 50 mg daily Patient reports tolerating Paroxysmal Atrial Fibrillation: Toprol XL 100 mg at bedtime Patient reports she just started taking yesterday. Patient reports tolerating. Hypercholesterolemia: Atorvastatin 10 mg daily Patient reports no muscle pain and reports tolerating. Review of Systems CONSTITUTIONAL: Negative EYES: no changes in vision - patient checks yearly CARDIOVASCULAR: no chest pain - patient has palpations (PAF) GASTROINTESTINAL: no nausea, no abdominal pain, no melena, no constipation, no diarrhea MUSCULOSKELETAL: no muscle pains NEUROLOGIC: no numbness or tingling of hands, no numbness or tingling of feet PSYCHIATRIC: No confusion ENDOCRINE: no cold intolerance, no heat intolerance Barriers to care: None Medication experiences impacting decision: no Adherence: ??? # of times per day patient takes meds: 2 ??? # of missed doses in the past week: 0 ??? Use of supportive adherence tools: none ??? Med cost concerns: no Pt denies dizziness, headache, confusion/memory problems, chest pain/pressure, nausea, constipation,diarrhea, muscle pain, numbness or tingling, edema, bleeding and hypoglycemia. Exercise: Patient reports walking 1 mile a day. Patient reports that she is trying to loose weight. Diet: Patient reports that she eats yogurt with strawberries for breakfast and includes protein for dinner. Does not eat past 5pm. Objective Adherence: Ability to assess medication adherence objectively: Able. According to VMAT, patient adherence is: Good - > 80% adherent to all chronic medications. BP 125/80 Pulse (!) 57 Estimated body mass index is 31.24 kg/(m^2) as calculated from the following: Height as of 04/22/17: 5' 4 (1.626 m). Weight as of 04/22/17: 182 lb (82.6 kg). Cholesterol (mg/dl) Date Value 12/01/2016 141 11/30/2015 143 HDL (mg/dl) Date Value 12/01/2016 41 11/30/2015 41 LDL, Calc. (mg/dl) Date Value 12/01/2016 82 11/30/2015 72 Triglyceride (mg/dl) Date Value 12/01/2016 88 11/30/2015 150 (H) ALT (SGPT) (U/L) Date Value 12/07/2016 68 (H) Potassium (mmol/L) Date Value 03/04/2017 4.4 Creatinine (mg/dl) Date Value 03/04/2017 0.81 Sodium (mmol/L) Date Value 03/04/2017 140 Lab Results Component Value Date/Time TSH 1.84 12/01/2016 07:14 AM No results found for: INR Hgb A1c (%) Date Value 03/04/2017 7.8 (H) 12/01/2016 7.2 (H) 03/06/2016 6.6 (H) 10-year ASCVD Risk Score: CVWizard Summary:Risk for a heart attack or stroke in the next 10 years is10.21% (using the ACC/AHA ASCVD risk score) based on age 62, female gender, BP 125/80 mm Hg, on BP medication, total cholesterol 141 mg/dl, HDL 41 mg/dl, diabetes diagnosis identified, current tobacco use not identified. Cardiovascular risk could be reduced with attention to the following, in order ofpriority: statin use or intensification; aspirin use; improving blood sugar control; weight loss; Assessment BP goal: <140/90. Pt is at goal. LDL goal: moderate intensity statin. Pt is at goal. Patient had elevated liver enzymes, which could have possibly increased in the past due to the atorvastatin HgbA1C goal: <8%. Pt is at goal. Hyperlipidemia: Patient had elevated liver enzymes, which could have possibly increased in the past due to the atorvastatin. Hence, a moderate intensity statin versus a higher intensity in this case. Plan 1) No current drug therapy problems. Patient is to continue current medications. Follow up with [facility] Pharmacist in 6 months/ Updated [employer] med list and reviewed medications including indications with patient. Total time spent with patient 30 minutes. Marian Davis PharmD Clinical Pharmacist Medication Therapy Management Program Recipient of visit: Patient Medicare CI: no # of DTPs: 0 # of DTPs resolved: 0 Kailey Christine PharmD - 04/23/2017 8:00 AM CDT Agree with note. Case discussed with resident. Kailey Christine PHARMD documented in this encounter Plan of Treatment Not on filedocumented as of this encounter Visit Diagnoses Diagnosis Essential hypertension (HRC) - Primary Unspecified essential hypertension Diabetes mellitus, type 2 (HRC) Type II or unspecified type diabetes dinora litus without mention of complication, not stated as uncontrolled documented in this encounter Care Teams Granulator Tender Relationship Specialty Start Date End Date Alisha Kimball MD PCP - General 07/08/05 [address] [place] [address] documented as of this encounter
--- OUTSIDE RECORDS SUMMARY | 2022-04-07 07:24 | XMS_ITS | Encounter Summary ---
:1955 [facility] Organization [facility] Address [address] [place] [address] Care Team Providers Name Role Phone Alisha Kimball MD Primary Care Provider Reason for Visit Procedure/Equipment (Routine) - Incomplete Specialty Diagnoses / Procedures Referred By Contact Refer red To Contact Diagnoses Right ear pain Kareen Cohen, CHAVO, Procedures MR Brain W/WO IV Cont MR Brain WO IV Cont PRODUCTION ASSEMBLY OPERATOR [address] [place] [address] Referral ID Status Reason Start Date Expiration Date Visits V isits Requested Authorized [id number] Incomplete 05/19/2017 08/18/2018 1 1 Encounter Details Date Type Department Care Team Description 06/07/2017 Imaging [facility] Specialty Kareen Cohen, Right ear pain Center MRI RUBBING BED OPERATOR, PRODUCTION ASSEMBLY OPERATOR [address] [place] [address] [place] [address] [phone] (Wo rk) Social History Tobacco Use Types Packs/Day Years Used Date Smoking Tobacco: Never Smokeless Tobacco: Never Alcohol Use Standard Drinks/Week Comments No 0 (1 standard drink = 0.6 oz pure alcoho l) Sex Assigned at Date Recorded Not on file documented as of this encounter Progress Notes Kareen Cohen APRN, DNP - 06/10/2017 8:19 AM CST Normal head MRI, no evidence of structural problems that could be causing the pain. Kareen Cohen APRN, DNP 06/10/2017, 8:19 AM ATION CHECKER documented in this encounter Plan of Treatment Not on filedocumented as of this encounter Procedures Procedure Name Priority Date/Time Associated Diagnosis Comme nts MR BRAIN W/WO IV Routine 06/07/2017 10:01 AM Right ear pain Re sults for this CONT QUOTATION CHECKER procedure are i n the results section. 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 CONTRAST: 8 mL Gadavist COMPARISON: ??None FINDINGS: No restricted diffusion sugges tive of acute infarct. No mass, acute hemorrhage, or extra-axial fluid c ollections. The ventricles and sulci are age-appropriate in size, shape , and position. Scattered foci of nonspecific T2/FLAIR hyperintense signal in the cerebral white matter and reed is nonspecific but consistent with mild to moderate chronic small vessel ischemic changes. The cerebellum is unremarkable. No abnormal contrast enhancement identified. The pituitary gland is unremarkable. The major intracranial vascular flow voids are maintained. The orbits are unr emarkable. The calvarium and skull base are unremarkable. ??The paranasal s inuses are clear. The mastoid air cells are clear. Dedicated imaging of the cranial nerves was performed. No cerebellopontine angle or prepontine mass. No pathologic enhancement along the course of either trigeminal nerve. No vascular imp ingement in the region of the trigeminal root entry zones. CONCLUSION: 1. ??No acute infarct, mass, or hemorrha ge. 2. ??No definite mass or pathologic enha ncement involving either trigeminal nerve or the cerebellopontine angles. 3. ??Age-related changes as detailed abo ve. Procedure Note Alexis Flaherty MD - 06/07/2017Formatt ing of this note might be different from the original. 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 CONTRAST: 8 mL Gadavist COMPARISON: None FINDINGS: No restricted diffusion sugges tive of acute infarct. No mass, acute hemorrhage, or extra-axial fluid c ollections. The ventricles and sulci are age-appropriate in size, shape , and position. Scattered foci of nonspecific T2/FLAIR hyperintense signal in the cerebral white matter and reed is nonspecific but consistent with mild to moderate chronic small vessel ischemic changes. The cerebellum is unremarkable. No abnormal contrast enhancement identified. The pituitary gland is unremarkable. The major intracranial vascular flow voids are maintained. The orbits are unr emarkable. The calvarium and skull base are unremarkable. The paranasal sin uses are clear. The mastoid air cells are clear. Dedicated imaging of the cranial nerves was performed. No cerebellopontine angle or prepontine mass. No pathologic enhancement along the course of either trigeminal nerve. No vascular imp ingement in the region of the trigeminal root entry zones. CONCLUSION: 1. No acute infarct, mass, or hemorrhage . 2. No definite mass or pathologic enhanc ement involving either trigeminal nerve or the cerebellopontine angles. 3. Age-related changes as detailed above . Kareen Cohen APRN, CNP RAD MRI documented in this encounter Visit Diagnoses Diagnosis Right ear pain Otalgia, unspecified documented in this encounter Administered Medications Inactive Administered Medications - up to 3 most recent administrations Medication Order MAR Action Action Date Dose Rate Site gadobutrol (GADAVIST) 1 Given 06/07/2017 10:03 AM QUOTATION CHECKER 8 mL Right Arm MMOL/ML injection 10 mL 10 mL, Intravenous, ONCE (NON-SCHEDULED), Starting on Wed06/07/17 at 1002, Until Wed06/07/17 at 1003, For 1 dose documented in this encounter Care Teams Heel Cementer Relationship Specialty Start Date End Date Alisha Kimball MD PCP - General 07/08/[address] [place] [address] documented as of this encounter
--- OUTSIDE RECORDS SUMMARY | 2022-04-07 07:24 | XMS_ITS | Encounter Summary ---
:1955 Author Organization [facility] Address [address] [place] [address] Care Team Providers Name Role Phone Alisha Kimball MD Primary Care Provider Reason for Visit Reason Comments RESULTS, TEST Encounter Details Date Type Department Care Team Description 03/23/2017 Telephone [facility] Torey Marcelo MD RESULTS, TEST Practice [address] [facility] [address] [place] [address] [place], [place] [address] [phone] Social History Tobacco Use Types Packs/Day Years Used Date Smoking Tobacco: Never Smokeless Tobacco: Never Alcohol Use Standard Drinks/Week Comments No 0 (1 standard drink = 0.6 oz pure alcoho l) Sex Assigned at Date Recorded Not on file documented as of this encounter Nursing Notes Torey Marcelo MD - 03/26/2017 5:39 PM CDT Patient advised of holter report. She will follow up next week with cardiology as arranged. Torey Marcelo MD 03/26/2017, 5:40 PM Lyn Irvin LPN - 03/23/2017 1:58 PM CDT Pt notified. She did a holter monitor over the weekend. There was an appt on 03/19 for the hooker off and she turned it in yesterday. She will wait for cardiology to call her to schedule consult. Will FYI Dr Marcleo. Lyn Irvin LPN 03/23/2017, 1:59 PM Lyn Irvin LPN - 03/23/2017 1:10 PM CDT Left message to call back. Lyn Irvin LPN 03/23/2017, 1:10 PM Lyn Irvin LPN - 03/23/2017 1:08 PM CDT ----- Message from Torey Marcelo MD sent at 03/23/2017 12:52 PM CDT ----- Please call patient. Your stress test was normal except for a few brief runs of abnormal rapid heartbeat. This might be the cause of your fainting spell. I would like you to also have the holter monitor test and I am going to refer you to a hardness tester for a consultation also. Torey Marcelo MD 03/23/2017, 12:52 PM documented in this encounter Plan of Treatment Not on filedocumented as of this encounter Visit Diagnoses Not on filedocumented in this encounter Care Teams Basket Maker Relationship Specialty Start Date End Date Alisha Kimball MD PCP - General 07/08/05 [address] [place] [address] documented as of this encounter
--- OUTSIDE RECORDS SUMMARY | 2022-04-07 07:24 | XMS_ITS | Encounter Summary ---
:1955 Author Organization [facility] Address [address] [facility] [place] [address] Care Team Providers Name Role Phone Alsiha Kimball MD Primary Care Provider Reason for Visit Reason Comments RASH Bilateral front of legs Encounter Details Date Type Department Care Team Description 09/08/2017 Office Visit [facility] Gonsalo Vernon (Pr imary Dx) Practice NAMRATA Johnson [address] [place], [place] [address] [place], [place] [phone] Social History Tobacco Use Types Packs/Day Years Used Date Smoking Tobacco: Never Smokeless Tobacco: Never Alcohol Use Standard Drinks/Week Comments No 0 (1 standard drink = 0.6 oz pure alcoho l) Sex Assigned at Date Recorded Not on file documented as of this encounter Last Filed Vital Signs Vital Sign Reading Time Taken Comments Blood Pressure 132/92 09/08/2017 8:42 AM CALL OR CONTACT CENTRE MANAGER Pulse 60 09/08/2017 8:42 AM CALL OR CONTACT CENTRE MANAGER Temperature - - Respiratory Rate 20 09/08/2017 8:42 AM CALL OR CONTACT CENTRE MANAGER Oxygen Saturation - - Inhaled Oxygen Concentration - - Weight - - Height - - Body Mass Index - - documented in this encounter Patient Instructions Patient InstructionsAlex Vernon MBBS - 09/08/2017 8:40 AM CALL OR CONTACT CENTRE MANAGER Images from the original note were not included. Aquaphor ointment daily or cetaphil cream Zyrtec/Claritin/Benadryl pills as needed Triamcinolone ointment 3 times a day for not more than 3 weeks at a time. Cool compresses. Return to clinic for worsening or no improvement in symptoms. Rash: Care Instructions Your Care Instructions A rash is any irritation or inflammation of the skin. Rashes have many possible causes, including allergy, infection, illness, heat, and emotional stress. Follow-up care is a israel part of your treatment and safety. Be sure to make and go to all appointments, and call your doctor if you are having problems. It's also a good idea to know your test results and keep a list of the medicines you take. How can you care for yourself at home? ?? Wash the area with water only. Soap can make dryness and itching worse. Pat dry. ?? Put cold, wet cloths on the rash to reduce itching. ?? Keep cool, and stay out of the sun. ?? Leave the rash open to the air as much of the time as possible. ?? Sometimes petroleum jelly (Vaseline) can help relieve the discomfort caused by a rash. A moisturizing lotion, such as Cetaphil, also may help. Calamine lotion may help for rashes caused by contact with something (such as a plant or soap) that irritated the skin. Use it 3 or 4 times a day. ?? If your doctor prescribed a cream, use it as directed. If your doctor prescribed medicine, take it exactly as directed. ?? If your rash itches so badly that it interferes with your normal activities, take an xruv-muc-okugmfh antihistamine, such as diphenhydramine (Benadryl) or loratadine (Claritin). Read and follow all instructions on the label. When should you call for help? Call your doctor now or seek immediate medical care if: ? ?? You have signs of infection, such as: ?? Increased pain, swelling, warmth, or redness. ?? Red streaks leading from the area. ?? Pus draining from the area. ?? A fever. ? ?? You have joint pain along with the rash. ?Watch closely for changes in your health, and be sure to contact your doctor if: ? ?? Your rash is changing or getting worse. For example, call if you have pain along with the rash,the rash is spreading, or you have new blisters. ? ?? You do not get better after 1 week. Where can you learn more? 1. Go to [employer] or [employer]. 2. Enter U711 in the search box. Current as of: April 16, 2016 Content Version: 11.5 ?? 2892-0148 [employer]. Hives: Care Instructions Your Care Instructions Hives are raised, red, itchy patches of skin. They are also called wheals or welts. They usually have red borders and pale centers. Hives range in size from ?? inch to 3 inches or more across. They mayseem to move from place to place on the skin. Several hives may form a large area of raised, red skin. You can get hives after an insect sting, after taking medicine or eating certain foods, or because of infection or stress. Other causes include plants, things you breathe in, makeup, heat, cold, sunlight, and latex. You cannot spread hives to other people. Hives may last a few minutes or a few days, but a single spot may last less than 36 hours. Follow-up care is a israel part of your treatment and safety. Be sure to make and go to all appointments, and call your doctor if you are having problems. It's also a good idea to know your test results and keep a list of the medicines you take. How can you care for yourself at home? ?? Avoid whatever you think may have caused your hives, such as a certain food or medicine. However,you may not know the cause. ?? Put a cool, wet towel on the area to relieve itching. ?? Take an phxe-gbj-bavphtq antihistamine, such as diphenhydramine (Benadryl), cetirizine (Zyrtec), or loratadine (Claritin), to help stop the hives and calm the itching. Read and follow directions on the label. These medicines can make you feel sleepy. Do not drive while using them. ?? Stay away from strong soaps, detergents, and chemicals. These can make itching worse. When should you call for help? Call 911 anytime you think you may need emergency care. For example, call if: ? ?? You have symptoms of a severe allergic reaction. These may include: ?? Sudden raised, red areas (hives) all over your body. ?? Swelling of the throat, mouth, lips, or tongue. ?? Trouble breathing. ?? Passing out (losing consciousness). Or you may feel very lightheaded or suddenly feel weak, confused, or restless. ?Call your doctor now or seek immediate medical care if: ? ?? You have symptoms of an allergic reaction, such as: ?? A rash or hives (raised, red areas on the skin). ?? Itching. ?? Swelling. ?? Belly pain, nausea, or vomiting. ? ?? You get hives after you start a new medicine. ? ?? Hives have not gone away after 24 hours. ?Watch closely for changes in your health, and be sure to contact your doctor if: ? ?? You do not get better as expected. Where can you learn more? 1. Go to [employer] or [employer]. 2. Enter K772 in the search box. Current as of: September 21, 2016 Content Version: 11.5 ?? 5212-2629 [employer]. OR CONTACT CENTRE MANAGER documented in this encounter Progress Notes Alex Vernon MBBS - 09/08/2017 8:40 AM CST Historical: Chief Complaint Patient presents with ??? RASH Bilateral front of legs Rash Where is the rash? lower legs anteriorly. She was in [place] when it started. She was wearing and her lower legs were exposed. It has gotten worse. How long have you had this rash? 2 week(s) Are you exposed to irritants (plants, animals, chemicals, a change in lotion, soaps, or detergents)?No Have you had a recent change in medications? YES, Magnesium started around the same time the rash began Do you have any family members or contacts with similar symptoms? No Do you have any joint pain? No Do you have a fever? No Have you had a similar rash in the past? No Is the rash itchy? YES Is the rash painful? No More red at night. Very itchy. Rx: Benadryl cream and OTC Hydrocortisone cream that help temporarily. I have personally reviewed the patient's allergies, medications and past medical history in detail and updated the patient record as necessary. Observed: BP (!) 132/92 Pulse 60 Resp 20 Physical Exam: General Appearance: alert, well appearing and in no apparent distress HEENT: oropharynx clear, ear canals clear and TMs normal Heart: regular rate and rhythm and no murmurs, gallops or rubs Lungs: clear to ausculation and no wheezes, rales or rhonchi Skin: anterior aspect of both the lower legs, there are pinpoint red spots. The lower legs skin is dry. No swelling, tenderness, warmth. Assessment/Plan: Rash - triamcinolone acetonide (KENALOG) 0.1 % ointment; Apply to affected area 2-3 times a day for 3 weeks. Unclear etiology for the rash. It could likely be from dry skin versus any allergen. Advised patientto identify any possible allergen, trigger and to avoid them. Wash all clothes, sheets in hot water.Use products for sensitive skin without any perfumes, dyes, preservatives. Patient has not been applying any moisturizer to her leg since the rash. Advised patient to use a good moisturizer like Aquaphor ointment or Cetaphil cream. Prescribed triamcinolone ointment to help with the itching and not usefor more than 3 weeks at a time. Ofdm-csn-jrbmdta antihistamines to help with the itching. Cool compresses, cool to lukewarm showers. Follow up if there is no improvement over the next 1-2 weeks or worsening of symptoms. Follow up for any evidence of infection or new symptoms. Patient verbalizes understanding and agrees to plan. Please see orders and patient instructions NAMRATA Sharp OR CONTACT CENTRE MANAGER documented in this encounter Plan of Treatment Not on filedocumented as of this encounter Visit Diagnoses Diagnosis Rash - Primary Rash and other nonspecific skin eruption documented in this encounter Care Teams Chartered Accountant Relationship Specialty Start Date End Date Alisha Kimball MD PCP - General 07/08/05 [address] [place] [address] documented as of this encounter
--- OUTSIDE RECORDS SUMMARY | 2022-04-07 07:24 | XMS_ITS | Encounter Summary ---
:1955 Author Organization [facility] Address [address] [place] [address] Care Team Providers Name Role Phone Alisha Kimball MD Primary Care Provider Encounter Details Date Type Department Care Team Description 03/04/2017 Lab Visit [facility] [place] [address] [place], [place] [address] Social History Tobacco Use [...] on filedocumented in this encounter Care Teams Toaster Operator Relationship Specialty Start Date End Date Alisha Kimball MD PCP - General 07/08/[address] [place], [place] [id number] documented as of this encounter
--- OUTSIDE RECORDS SUMMARY | 2022-04-07 07:24 | XMS_ITS | Encounter Summary ---
:1955 Author Organization [facility] Address [address] [place] [address] Care Team Providers Name Role Phone Alisha Kimball MD Primary Care Provider Reason for Referral Consult/Transfer Care (Routine) - Closed Specialty Diagnoses / Procedures Referred By Contact Refer red To Contact Diagnoses Syncope, unspecified [place] [address] [place], [place] [address] Referral ID Status Reason Start Date Expiration Date Visits Requ ested Visits Authorized [id number] Closed 03/23/2017 06/22/2018 1 1 Scheduling Instructions Your provider has recommended an appoint ment with [facility]. You may call [phone] to schedule your appoi ntment. If you prefer, a summer sessions director will contact you within the next 3 business d ays to assist you in setting up this appointment. We suggest you call your [facility] insurance company about your coverage and benefits for this appointment. Encounter Details Date Type Department Care Team Description 03/23/2017 Notes/Orders [facility] Torey Marcelo Syncope, unspecified Practice MD Ian syncope type (Primary [address]) [place] [id number] Social History Tobacco Use Types Packs/Day Years Used Date Smoking Tobacco: Never Smokeless Tobacco: Never Alcohol Use Standard Drinks/Week Comments No 0 (1 standard drink = 0.6 oz pure alcoho l) Sex Assigned at Date Recorded Not on file documented as of this encounter Plan of Treatment Scheduled Referrals Name Type Priority Associated Diagnoses Order S chedule Cardiology Referral Routine Syncope, unspecified Ordered : 03/23/2017 Consult-Adults syncope type documented as of this encounter Visit Diagnoses Diagnosis Syncope, unspecified syncope type - Prim levy documented in this encounter Care Teams Animal Trainer Relationship Specialty Start Date End Date Alisha Kimball MD PCP - General 07/08/05 [address] [place] [address] documented as of this encounter
--- OUTSIDE RECORDS SUMMARY | 2022-04-07 07:24 | XMS_ITS | Encounter Summary ---
:1955 [facility] Address [address] [place] [address] Care Team Providers Name Role Phone Alisha Kimball MD Primary Care Provider Reason for Visit Reason Comments ERRONEOUS ENTRY Encounter Details Date Type Department Care Team Description 03/05/2017 Telephone [facility] Torey Marcelo Axel ERRONEOUS ENTRY [address] [place], [place] [address] Social History Tobacco Use [...] on filedocumented in this encounter Care Teams Tower Technician Relationship Specialty Start Date End Date Alisha Kimball MD PCP - General 07/08/[address] [place], [place] [id number] documented as of this encounter
--- OUTSIDE RECORDS SUMMARY | 2022-04-07 07:24 | XMS_ITS | Encounter Summary ---
:1955 Author Organization [facility] Address [address] [place] [address] Care Team Providers Name Role Phone Alisha Kimball MD Primary Care Provider Reason for Visit Reason Comments Follow Up Test Results Event monitor Encounter Details Date Type Department Care Team Description 04/16/2017 Telephone [facility] Alvarado Friedman F olnaveed Up Test Cardiology MD Results (Event [address] [facility] monitor) [place] [address] [place], [place] [phone] [address] Social History Tobacco Use Types Packs/Day Years Used Date Smoking Tobacco: Never Smokeless Tobacco: Never Alcohol Use Standard Drinks/Week Comments No 0 (1 standard drink = 0.6 oz pure alcoho l) Sex Assigned at Date Recorded Not on file documented as of this encounter Nursing Notes Alisha Mayfield, RN - 04/16/2017 4:54 PM CDT Received fax from [employer], Dr. Friedman reviewed and found Atrial Fib. She ordered pt to increase Metoprolol to 25 mg BID and have appt soon to discuss AC. Pt states she didn't realize she was supposed to take 1/2 tab BID and has been taking 25 mg BID. Pt was given revisit with her on at 4:00 PM, already has echo scheduled at 10:[address] Friedman again and she ordered pt to increase to 37.5 mg BID and may increase further at appt. Pt notified and agreeable with no further questions. Dose changed in Epic historically, will need new RX sent to pharmacy at next appt for Metoprolol. Alejandro Mayfield RN 04/16/2017, 5:07 PM documented in this encounter Plan of Treatment Not on filedocumented as of this encounter Visit Diagnoses Diagnosis Heart palpitations - Primary Palpitations PAF (paroxysmal atrial fibrillation) (HR C) Atrial fibrillation documented in this encounter Care Teams Executive Steward Relationship Specialty Start Date End Date Alisha Kimball MD PCP - General 07/08/05 [address] [place] [address] documented as of this encounter
--- OUTSIDE RECORDS SUMMARY | 2022-04-07 07:24 | XMS_ITS | Encounter Summary ---
:1955 Author Organization [email or web address] Address [address] [place] [address] Care Team Providers Name Role Phone Alisha Kimball MD Primary Care Provider Reason for Visit Reason Comments MEDICATION THERAPY MANAGEMENT Encounter Details Date Type Department Care Team Description 10/25/2017 Office Visit [facility] Kailey Christine Essential hypertension [address] [facility] Meghann, PharmD (Primary Dx) [place], [place] [id number] Social History Tobacco Use Types Packs/Day Years Used Date Smoking Tobacco: Never Smokeless Tobacco: Never Alcohol Use Standard Drinks/Week Comments No 0 (1 standard drink = 0.6 oz pure alcoho l) Sex Assigned at Date Recorded Not on file documented as of this encounter Last Filed Vital Signs Vital Sign Reading Time Taken Comments Blood Pressure 124/80 10/25/2017 7:32 AM CDT Pulse 60 10/25/2017 7:32 AM CDT Temperature - - Respiratory Rate - - Oxygen Saturation - - Inhaled Oxygen Concentration - - Weight - - Height - - Body Mass Index - - documented in this encounter Patient Instructions Patient InstructionsKailey Christine, PharmD - 10/25/2017 7:30 AM CDT 1) Call [facility] to see if they will send you a new meter 2) Keep up your good work Please see me back on 04/29 at 7:30AM. The appointment has been made for you. Thank you for coming in to see me today. Please do not hesitate to give me a call with any other questions or concerns. To schedule follow up appointments with me please call: [phone]. To leave a phone message for me please call the clinic directly. [facility] at [phone] (stay onthe line -- don't push an option) and leave a message with the administrative receptionist. Kailey Christine PharmD documented in this encounter Progress Notes Kailey Christine PharmD - 10/25/2017 7:30 AM CDT Subjective Loc Velasco is a 62 y.o. old female who was referred by [employer] for medication review/education. Pt reports doing well since last visit. At last visit we continued current medications. She is scheduled to see her PCP next month and have lab work completed at that time. BG readings: not checking, her meter is not working Hypoglycemia: denies symptoms Lifestyle: Diet: trying to limit portions and get more fruits and veggies Exercise: walking 1-2 miles at lunch and again in the evening No other problems or concerns today. Adherence: ??? # of missed doses in the past week: 0 Objective Adherence: Ability to assess medication adherence objectively: Able. According to VMAT, patient adherence is: Good - > 80% adherent to all chronic medications. BP 124/80 Pulse 60 Estimated body mass index is 31.77 kg/(m^2) as calculated from the following: Height as of 09/02/17: 5' 4.5 (1.638 m). Weight as of 09/02/17: 188 lb (85.3 kg). Cholesterol (mg/dl) Date Value 12/01/2016 141 11/30/2015 143 HDL (mg/dl) Date Value 12/01/2016 41 11/30/2015 41 LDL, Calc. (mg/dl) Date Value 12/01/2016 82 11/30/2015 72 Triglyceride (mg/dl) Date Value 12/01/2016 88 11/30/2015 150 (H) ALT (SGPT) (U/L) Date Value 05/21/2017 70 (H) Potassium (mmol/L) Date Value 03/04/2017 4.4 Creatinine (mg/dl) Date Value 05/21/2017 0.77 Sodium (mmol/L) Date Value 03/04/2017 140 Lab Results Component Value Date/Time TSH 1.84 12/01/2016 07:14 AM INR (no units) Date Value 05/21/2017 1.0 Hgb A1c (%) Date Value 03/04/2017 7.8 (H) 12/01/2016 7.2 (H) 03/06/2016 6.6 (H) 10-year ASCVD Risk Score: CVWizard Summary:Risk for a heart attack or stroke in the next 10 years is12.83% (using the ACC/AHA ASCVD risk score) based on age 62, female gender, BP 141/86 mm Hg, on BP medication, total cholesterol 141 mg/dl, HDL 41 mg/dl, diabetes diagnosis identified, current tobacco use not identified. Cardiovascular risk could be reduced with attention to the following, in order ofpriority: statin use or intensification; improving blood sugar control; weight loss; lowering blood pressure; Assessment BP goal: <140/90. Pt is at goal. LDL goal: high intensity statin. Pt is not at goal. Pt has LFT elevations HgbA1C goal: <8%. Pt is at goal. Plan 1) Pt to call [facility] and request a new meter given that we do not have any Edilma's in the clinic. 2) Have lab work completed as planned 3) Keep up good work with lifestyle changes Follow up with [place] Pharmacist in 6 months Updated [facility] med list and reviewed medications including indications with patient. Total time spent with patient 30 minutes. Kailey Christine, PharmD Clinical Pharmacist Medication Therapy Management Program Recipient of visit: Patient Medicare CI: no # of DTPs: 0 # of DTPs resolved: 0 documented in this encounter Plan of Treatment Not on filedocumented as of this encounter Visit Diagnoses Diagnosis Essential hypertension (HRC) - Primary Unspecified essential hypertension documented in this encounter Care Teams Neurourologist Relationship Specialty Start Date End Date Alisha Kimball MD PCP - General 07/08/05 [address] [place] [address] documented as of this encounter
--- OUTSIDE RECORDS SUMMARY | 2022-04-07 07:24 | XMS_ITS | Encounter Summary ---
:1955 Author Organization [facility] Address [address] [place] [address] Care Team Providers Name Role Phone Alisha Kimball MD Primary Care Provider Reason for Visit Procedure/Equipment (Routine) - Incomplete Specialty Diagnoses / Procedures Referred By Contact Refer red To Contact Diagnoses Syncope, unspecified syncope type Torey Marcelo MD Procedures NM Card Exercise Rest/Stress Spect [address] [place], [place] [address] Referral ID Status Reason Start Date Expiration Date Visits V isits Requested Authorized [id number] Incomplete 03/04/2017 06/03/2018 6 6 Encounter Details Date Type Department Care Team Description 03/22/2017 [facility] Torey Marcelo, Syncope, unspecified [address] [place] [address] [facility] [phone] [place] [address] (Wo rk) Social History Tobacco Use Types Packs/Day Years Used Date Smoking Tobacco: Never Smokeless Tobacco: Never Alcohol Use Standard Drinks/Week Comments No 0 (1 standard drink = 0.6 oz pure alcoho l) Sex Assigned at Date Recorded Not on file documented as of this encounter Progress Notes Torey Marcelo MD - 03/23/2017 12:52 PM CDT Please call patient. Your stress test was normal except for a few brief runs of abnormal rapid heartbeat. This might be the cause of your fainting spell. I would like you to also have the holter monitor test and I am going to refer you to a traffic rate clerk for a consultation also. Torey Marcelo MD 03/23/2017, 12:52 PM documented in this encounter Plan of Treatment Not on filedocumented as of this encounter Procedures Procedure Name Priority Date/Time Associated Diagnosis Comme nts NM CARD MYOCARD Routine 03/22/2017 9:59 AM Syncope, unspecifie d Results for this EXERCISE CDT syncope type procedure are i n REST/STRESS SPECT the result s section. documented in this encounter Results NM Card Exercise Rest/Stress Spect (03/22/2017 9:59 AM CDT) Anatomical Region Laterality Modality Chest, NM Cardiac Nuclear Medicine Specimen (Source) Anatomical Collection Method Collection Time Re ceived Time Location / / Volume Laterality 03/22/2017 7:00 AM CDT Narrative 03/22/2017 11:40 AM CDT Indications: ?Syncope and collapse ECG Stress Conclusions ? The patient exercised for 7 minut es 30 seconds on the Pratik ? protocol. ? Above average functional capacity for age. ? Rare 3-18 beat runs of SVT in rec overy. ? No chest pain with exercise. ? Negative stress ECG for ST segmen t depression. ?? Myocardial Perfusion Conclusions ? Myocardial perfusion imaging reve als no scan evidence of ? any significant territory of isch emia or infarction. ? Left ventricular size and wall mo tion are normal. ? Left ventricular ejection fractio n is normal, EF 65%. ? No prior study available. ?? Roddy Thurston MD, FACC, FASE (Electronically Signed) Final Date: ?22 March 2017 1 1:40 Procedure Note Yadira Thurston MD - 03/22/2017Formatti ng of this note might be different from the original. Indications: Syncope and collapse ECG Stress Conclusions The patient exercised for 7 minutes 30 seconds on the Pratik protocol. Above average functional capacity for a ge. Rare 3-18 beat runs of SVT in recovery. No chest pain with exercise. Negative stress ECG for ST segment depr ession. Myocardial Perfusion Conclusions Myocardial perfusion imaging reveals no scan evidence of any significant territory of ischemia o r infarction. Left ventricular size and wall motion a re normal. Left ventricular ejection fraction is n ormal, EF 65%. No prior study available. Roddy Thurston MD, FACC, TONYA (Electronically Signed) Final Date: 22 March 2017 11:40 Torey Marcelo MD RAD [facility] documented in this encounter Visit Diagnoses Diagnosis Syncope, unspecified syncope type documented in this encounter Care Teams Metal Painter Relationship Specialty Start Date End Date Alisha Kimball MD PCP - General 07/08/05 [address] [place] [address] documented as of this encounter
--- OUTSIDE RECORDS SUMMARY | 2022-04-07 07:24 | XMS_ITS | Encounter Summary ---
:1955 Author Organization [facility] Address [address], [place] [address] Care Team Providers Name Role Phone Alisha Kimball MD Primary Care Provider Reason for Referral Consult/Transfer Care (Routine) - Closed Specialty Diagnoses / Procedures Referred By Contact Refer red To Contact Diagnoses Obstructive sleep apnea syndrome Jonna Roe MD [address] [place] [address] Referral ID Status Reason Start Date Expiration Date Visits Requ ested Visits Authorized [id number] Closed 08/08/2017 11/07/2018 1 1 Scheduling Instructions . ETIC AGENT Procedure/Equipment (Routine) - Closed Specialty Diagnoses / Procedures Referred By Contact Refer red To Contact Diagnoses Obstructive sleep apnea syndrome Jonna Roe MD Procedures Positive Airway Pressure - New [address] [place] [address] Referral ID Status Reason Start Date Expiration Date Visits Requ ested Visits Authorized [id number] Closed 08/08/2017 11/07/2018 1 1 ETIC AGENT Reason for Visit Reason Comments SLEEP,DISTURBANCE Procedure/Equipment (Routine) - Closed Specialty Diagnoses / Procedures Referred By Contact Refer red To Contact Diagnoses Sleep disturbance Alvarado Friedman MD [address] [place] [address] Referral ID Status Reason Start Date Expiration Date Visits Requ ested Visits Authorized [id number] Closed 03/30/2017 06/29/2018 1 1 Encounter Details Date Type Department Care Team Description 07/28/2017 Sleep Procedure [facility] Ob structive sleep apnea [facility] syndrome (Primary Dx) [address] [place] [address] Social History Tobacco Use Types Packs/Day Years Used Date Smoking Tobacco: Never Smokeless Tobacco: Never Alcohol Use Standard Drinks/Week Comments No 0 (1 standard drink = 0.6 oz pure alcoho l) Sex Assigned at Date Recorded Not on file documented as of this encounter Last Filed Vital Signs Vital Sign Reading Time Taken Comments Blood Pressure - - Pulse - - Temperature - - Respiratory Rate - - Oxygen Saturation - - Inhaled Oxygen Concentration - - Weight 83 kg (183 lb) 07/28/2017 10:09 PM ATHLETIC AGENT Height 162.6 cm (5' 4) 07/28/2017 10:09 PM ATHLETIC AGENT Body Mass Index 31.41 07/28/2017 10:09 PM ATHLETIC AGENT documented in this encounter Patient Instructions Patient InstructionsLuz Marina Esteves - 07/28/2017 7:30 PM CST [facility] 1. Your sleep study needs to be reviewed by a Sleep Specialist prior to scheduling a follow-up visitor other procedure or potential treatment. 2. Your provider???s clinic will be contacting you in the next 10 to 14 days to discuss the next steps. 3. If you have any questions or problems with your treatment plan, please contact your ordering provider???s clinic as the Sleep Center technologists are not able to discuss the details of your sleep procedure. No notes on file ETIC AGENT documented in this encounter Plan of Treatment Scheduled Referrals Name Type Priority Associated Diagnoses Order S chedule SLEEP STUDY RESULTS Referral Routine Obstructive sleep retail area manager ea Ordered: 08/08/2017 (PULM) syndrome documented as of this encounter Procedures Procedure Name Priority Date/Time Associated Diagnosis Comme [facility] SLEEP CENTER TECH - Routine 07/28/2017 9:45 AM Obstructive sle ep Results for this SPLIT NIGHT ATHLETIC AGENT apnea syndrome procedure are in the results section. documented in this encounter Results Sleep Center Tech - Split Night (07/28/2017 9:45 AM ATHLETIC AGENT) [facility] gist Method Time Signature Embla Report Interpreted EMBLA Status CLOVER Specimen (Source) Anatomical Collection Method Collection Time Re ceived Time Location / / Volume Laterality 07/28/2017 9:45 AM ATHLETIC AGENT Jonna Roe MD [facility] Performing Organization Address City/State/ZIP Code Phon e Number [facility] [place] [address] [place] [address] documented in this encounter Visit Diagnoses Diagnosis Obstructive sleep apnea syndrome - Prima ry Obstructive sleep apnea (adult) (pediatr ic) documented in this encounter Care Teams Quality Internship Relationship Specialty Start Date End Date Alisha Kimball MD PCP - General 07/08/05 [address] [place] [address] documented as of this encounter
--- OUTSIDE RECORDS SUMMARY | 2022-04-07 07:24 | XMS_ITS | Encounter Summary ---
:1955 Author Organization [facility] Address [address] [place] [address] Care Team Providers Name Role Phone Alisha Kimball MD Primary Care Provider Reason for Visit Procedure/Equipment (Routine) - Incomplete Specialty Diagnoses / Procedures Referred By Contact Refer red To Contact Diagnoses Syncope, unspecified syncope type Torey Marcelo MD Procedures NM Card Exercise Rest/Stress Spect [address] [place], [place] [address] Referral ID Status Reason Start Date Expiration Date Visits V isits Requested Authorized [id number] Incomplete 03/04/2017 06/03/2018 6 6 Encounter Details Date Type Department Care Team Description 03/22/2017 Office Visit [facility] Torey Marcelo, Cardiac Non-Invasive Lab [address] [place] [address] [place] [address] [place], [place] [phone] (Wo rk) Social History Tobacco Use Types Packs/Day Years Used Date Smoking Tobacco: Never Smokeless Tobacco: Never Alcohol Use Standard Drinks/Week Comments No 0 (1 standard drink = 0.6 oz pure alcoho l) Sex Assigned at Date Recorded Not on file documented as of this encounter Patient Instructions Patient InstructionsDariusz Orellana - 03/22/2017 9:00 AM CDT You had a test called: Myocardial perfusion imaging test with exercise. This test will help your care provider team determine if you have narrowing in the arteries to your heart muscle or if you have any irregular heart rhythm. For this test you received a small dose of radioactive material. Your test will be interpreted by a physician later today. Your test results will be available to Dr. Marcelo within one week. Please follow up with [facility] if you have not received your test results. documented in this encounter Progress Notes Dariusz Orellana - 03/22/2017 9:00 AM CDT Test ordered Exercise with Nuclear Med imaging Was today's stress test appointment changed? No. Primary Care Provider: Alisha Kimball MD. Ordering provider: Dr. Davian Whipple Chief complaint: Syncopal/ near syncopal episodes Trigger: random Duration: up to 30 seconds Relieved by: time Medical History Past Medical History: Diagnosis Date ??? Diabetes mellitus type II (HRC) 05/14/2010 ??? Diverticulosis of colon ??? Hypertension (HRC) ??? Normal delivery X 3 Surgical History Past Surgical History: Procedure Laterality Date ??? HYSTERECTOMY 1998 menorrhagia ??? OTHER - PROCEDURES 1999 [place] for stress incontinence Family History Family [...] History ??? Macular Degeneration Negative Family History Problem List Patient Active Problem List Diagnosis ??? Mallet finger ??? Family history of osteoporosis ??? Diabetes mellitus, type 2 (HRC) ??? Hypertension (HRC) ??? Hypercholesterolemia ??? Heart palpitations ??? Adenomatous polyp of colon ??? Elevated liver enzymes Tobacco History History Smoking Status ??? Never Smoker Smokeless Tobacco ??? Never Used Medications Current Outpatient Prescriptions Medication Sig Dispense Refill ??? amLODIPine (NORVASC) 5 MG tablet Take 1 Tab by mouth daily. 90 Tab 4 ??? aspirin (ASPIRIN, ENTERIC-COATED) 81 MG enteric coated tablet Take 81 mg by mouth daily. ??? atorvastatin (LIPITOR) 10 MG tablet TAKE ONE TABLET BY MOUTH EVERY DAY 90 Tab 3 ??? B-COMPLEX-C OR Take [...] daily at bedtime. 30 Tab 5 No current facility-administered medications for this visit. Beta nick held last 24 hours: NOT APPLICABLE Beta nick held last 48 hours: NOT APPLICABLE Pre-procedure evaluation of patient's current pain: Pain Location: none Miscellaneous screening evaluation: Yes: caffeine in last 12 hours: no, Theophylline in last 24 hours: no and Persantine/Aggrenox in last 48 hours: no O Cholesterol (mg/dl) Date Value 12/01/2016 141 HDL (mg/dl) Date Value 12/01/2016 41 LDL, Calc. (mg/dl) Date Value 12/01/2016 82 Triglyceride (mg/dl) Date Value 12/01/2016 88 Potassium (mmol/L) Date Value 03/04/2017 4.4 Hemoglobin (g/dl) Date Value 03/04/2017 12.9 No results found for: TROP Finger stick glucose test: N/A. Was there a pre-test consultation? No. A Test completed, results filed separately. Is there a post-test consultation? No. P Follow up Care: Patient will follow up with Dr Marcelo at [facility]. Test done with delivery consultant present: no 20 gauge IV catheter inserted by NM in the right antecubital. IV site appears: normal with intact catheter. IV D/C'd by:CARLY. Dariusz Orellana documented in this encounter Plan of Treatment [...] study available. ?? Roddy Thurston MD, FACC, TONYA (Electronically Signed) Final Date: ?22 March 2017 [...] prior study available. Roddy Thurston MD, FACC, FASAstrid (Electronically Signed) Final Date: 22 March 2017 11:40 Torey Marcelo MD RAD [facility] documented in this encounter Visit Diagnoses Not on filedocumented in this encounter Care Teams Petroleum Refining Firer Relationship Specialty Start Date End Date Alisha Kimball MD PCP - General 07/08/05 [address] [place] [address] documented as of this encounter
--- OUTSIDE RECORDS SUMMARY | 2022-04-07 07:24 | XMS_ITS | Encounter Summary ---
:1955 Author Organization [facility] Address [address] [place] [address] Care Team Providers Name Role Phone Alisha Kimball MD Primary Care Provider Reason for Referral Procedure/Equipment (Routine) - Closed Specialty Diagnoses / Procedures Referred By Contact Refer red To Contact Diagnoses Sleep disturbance Alvarado Friedman MD [address] [place] [address] Referral ID Status Reason Start Date Expiration Date Visits Requ ested Visits Authorized [id number] Closed 03/30/2017 06/29/2018 1 1 Scheduling Instructions 1. Your provider has ordered a sleep trena dy. 2. You will either be scheduled for this procedure at check-out today, or the [facility] Center will contact you within 14 business days to schedule this important test. 3. Please read through the Sleep Study p atient instructions packet that was provided to you. 4. Based on the results of your overnigh t testing, you will receive further instructions from your technologist in t he morning as to the next steps in this process. 5. Based on the outcome of your sleep st udy, one of the following may happen: a. You may be asked to stay for the rest of the day for additional testing b. You may be able to receive your treat ment/equipment at an appointment later in the morning or within a few days after your sleep study with a home medical equipment company at a location near the [facility]. At the time you receive your equipment, you will be scheduled for a follow-up vi sit with your provider about 6 to 8 weeks after you start treatment. c. You may be asked to schedule another sleep study to trial special equipment to help you sleep. d. You may need to schedule a follow-up visit 1 to 2 weeks after your test to discuss the results of your sleep study. At that appointment, you and your provider will determine the next steps. 6. Before you leave the Sleep Center in the morning, we will explain which option applies to you. 7. For any further questions about your sleep testing or treatment plan, please contact your provider. 8. It is highly recommended that you con tact your insurance provider to verify that you have coverage for your sleep study a nd home medical equipment (CPAP) if your study shows you do indeed have obstructi ve sleep apnea (MARYANNE). Encounter Details Date Type Department Care Team Description 03/30/2017 Notes/Orders [facility] Alvarado Friedman, [facility] Cardiology (Primary Dx) [address] [facility] [address] [place] [address] [place], [place] [phone] [id number] Social History Tobacco Use Types Packs/Day Years Used Date Smoking Tobacco: Never Smokeless Tobacco: Never Alcohol Use Standard Drinks/Week Comments No 0 (1 standard drink = 0.6 oz pure alcoho l) Sex Assigned at Date Recorded Not on file documented as of this encounter Plan of Treatment Scheduled Referrals Name Type Priority Associated Diagnoses Order S chedule Sleep Study-Split Night Referral Routine Sleep disturbance Ordered: 03/30/2017 documented as of this encounter Visit Diagnoses Diagnosis Sleep disturbance - Primary Sleep disturbance, unspecified documented in this encounter Care Teams Java [employer] Software Engineer Relationship Specialty Start Date End Date Alisha Kimball MD PCP - General 07/08/05 [address] [place] [address] documented as of this encounter
--- OUTSIDE RECORDS SUMMARY | 2022-04-07 07:24 | XMS_ITS | Encounter Summary ---
:1955 Author Organization [employer] Address [address] [place] [address] Care Team Providers Name Role Phone Alisha Kimball MD Primary Care Provider Reason for Visit Reason Comments Ear Pain right ear pain, liquid in ea r Encounter Details Date Type Department Care Team Description 05/19/2017 Office Visit [facility] Kareen Cohen, Diabete s mellitus, type 2 (HRC) (Primary Dx); Practice [facility] OME (otitis media with effusion), right; [address] Impacted cerumen of right ear; [place] [address] [place], [place] Encounter for immunization [phone] Social History Tobacco Use Types Packs/Day Years Used Date Smoking Tobacco: Never Smokeless Tobacco: Never Alcohol Use Standard Drinks/Week Comments No 0 (1 standard drink = 0.6 oz pure alcoho l) Sex Assigned at Date Recorded Not on file documented as of this encounter Last Filed Vital Signs Vital Sign Reading Time Taken Comments Blood Pressure 148/100 05/19/2017 2:27 PM PROFESSOR/NURSE ANESTHETIST Pulse 68 05/19/2017 2:27 PM PROFESSOR/NURSE ANESTHETIST Temperature - - Respiratory Rate - - Oxygen Saturation - - Inhaled Oxygen Concentration - - Weight 83 kg (183 lb) 05/19/2017 2:27 PM PROFESSOR/NURSE ANESTHETIST Height - - Body Mass Index 31.41 04/22/2017 3:56 PM CDT documented in this encounter Patient Instructions Patient InstructionsKareen Cohen, CHAVO, RADHA - 05/19/2017 2:20 PM PROFESSOR/NURSE ANESTHETIST Images from the original note were not included. Middle Ear Fluid: Care Instructions Your Care Instructions Fluid often builds up inside the ear during a cold or allergies. Usually the fluid drains away, but sometimes a small tube in the ear, called the eustachian tube, stays blocked for months. Symptoms of fluid buildup may include: ?? Popping, ringing, or a feeling of fullness or pressure in the ear. ?? Trouble hearing. ?? Balance problems and dizziness. In most cases, you can treat yourself at home. Follow-up care is a israel part of your treatment and safety. Be sure to make and go to all appointments, and call your doctor if you are having problems. It's also a good idea to know your test results and keep a list of the medicines you take. How can you care for yourself at home? ?? In most cases, the fluid clears up within a few months without treatment. You may need more testsif the fluid does not clear up after 3 months. ?? If your doctor prescribed antibiotics, take them as directed. Do not stop taking them just because you feel better. You need to take the full course of antibiotics. When should you call for help? Call your doctor now or seek immediate medical care if: ?? You have symptoms of infection, such as: ?? Increased pain, swelling, warmth, or redness. ?? Pus draining from the area. ?? A fever. Watch closely for changes in your health, and be sure to contact your doctor if: ?? You notice changes in hearing. ?? You do not get better as expected. Where can you learn more? 1. Go to [employer] or [employer]. 2. Enter S930 in the search box. Current as of: January 31, 2016 Content Version: 11.3 ?? [id number] [employer], [employer]. ESSOR/NURSE ANESTHETIST documented in this encounter Progress Notes Norma Lianez, POLICE DETENTION ATTENDANT - 05/19/2017 3:04 PM CST S: Patient has cerumen impaction. States has been using ear wax softening agent No. O: Cerumen observed in right ear canal(s). A: Patient history has been obtained. Kareen Cohen reviewed history, assessed ears and placed order for ear lavage. P: Right ear lavaged with tap water. some of the cerumen was removed. Norma Lainez CMA 05/19/2017, 3:03 PM ESSOR/NURSE ANESTHETIST Kareen Cohen, CHAVO, RADHA - 05/19/2017 2:20 PM CST Chief complaint: Chief Complaint Patient presents with ??? Ear Pain right ear pain, liquid in ear HPI: Loc Velasco is a 62 y.o. old female who presents to the clinic with right sided ear discomfort. She also feels fullness in the right ear and hears a sloshing sound. Pain on the outside of the ear. Has never had symptoms similar to this in the past. No history of ear infection. No problems with hearing. No recent cold symptoms. Denies seasonal allergies, but notes she does find herself sneezing a lot. She notes that she has had to have her ears cleaned out in the past due to wax build up. She is also concerned about an intermittent sharp pain she feels near her right ear. The pain doesn't feel like it's originating from inside the ear, but will have a sharp, jabbing pain for a few seconds up to a few minutes. She notes when she puts pressure on the outside of the ear, the pain seems tolessen just a little. The pain then goes away. She has been having this pain off and on for about a month. No problems with hearing. No fevers. Feels otherwise well. I have personally reviewed the patient's allergies, medications, past medical history, family history, social history, rooming notes and problem list in detail and updated the patient record as necessary. Outpatient Medications Prior to Visit Medication Sig Dispense Refill ??? amLODIPine (NORVASC) 5 MG tablet TAKE ONE TABLET BY MOUTH EVERY DAY 90 Tab 3 ??? aspirin (ASPIRIN, ENTERIC-COATED) 81 MG enteric coated tablet Take 81 mg by mouth daily. ??? atorvastatin (LIPITOR) 10 MG tablet TAKE ONE TABLET BY MOUTH EVERY DAY (Patient taking differently: taking 1/2 tablet daily) 90 Tab 3 ??? blood glucose (ACCU-CHEK STACEY PLUS) test strip Use to test two times a day. Use as directed. Pharmacy dispense brand based on insurance. 200 Each 3 ??? blood glucose monitoring device Dispense 1 meter. 1 Each PRN ??? lancets (ACCU-CHEK FASTCLIX LANCETS) Testing blood sugars 1 time(s) a day. Pharmacist may substitute meter/supplies if insurance or patient requires specific equipment or model 102 Each 11 ??? lancets (ACCU-CHEK MULTICLIX LANCETS) Once daily and as needed 100 Each prn ??? losartan (COZAAR) 50 MG tablet TAKE ONE TABLET BY MOUTH EVERY DAY 90 Tab 3 ??? metFORMIN XR (GLUCOPHAGE XR) 500 MG 24 hour release tablet Take 4 Tabs by mouth daily with breakfast. 360 Tab 11 ??? metoprolol succinate (TOPROL XL) 100 MG 24 hour release tablet Take 1 Tab by mouth daily at bedtime. 30 Tab 11 ??? traZODone (AKA DESYREL) 50 MG tablet Take 0.5-2 Tabs by mouth daily at bedtime. 30 Tab 5 No facility-administered medications prior to visit. Allergies Allergen Reactions ??? Sulfa Antibiotics Redness and Swelling Review of Systems: Detailed review of systems including constitutional, skin, eyes, ENT, resp, CVS, GI & , revealed no abnormality except as detailed above. Physical Examination: BP (!) 148/100 Pulse 68 Wt 183 lb (83 kg) BMI 31.41 kg/m2 General: alert, well-appearing, very pleasant affect Eyes: PERRL and conjunctivae clear Ears: moderate amount of cerumen in the R ear, post cerumen removal, serous fluid noted behind R TM.L TM pearly torres with good light reflex. No erythema in ear canals bilaterally. Nose: no rhinorrhea/nasal discharge Mouth/Throat: no exudates, no erythema, no dental tenderness and structures midline Neck: supple and no adenopathy Chest/Pulmonary: chest clear with equal lung sounds bilaterally and no tachypnea Cardiovascular: irregular rhythm with normal rate, S1, S2 normal, no murmur Assessment/Plan: OME (otitis media with effusion), right - fluticasone (FLONASE) 50 MCG/ACT nasal solution; Place 1 [place] into both nostrils daily. decrease to 1 spray per nostril daily if symptoms controlled Impacted cerumen of right ear - Ear lavage, impacted cerumen RIGHT Encounter for immunization - ZOSTER (SHINGLES) - Influenza Cerumen removed from R ear. Will start Flonase daily to see if this will help improve the serous otitis. Education provided regarding the nature of the condition and that it can last several weeks. Avoid thcd-zmzymcahw-feiirktjihrgyfm combinations products due to blood pressure. I think the intermittent sharp ear pain might represent a trigeminal neuralgia. If this persists, she should follow up with primary and consider an MRI of the brain. She verbalizes understanding and agrees with plan of care. Kareen Cohen APRN, DNP 05/19/2017, 4:25 PM ESSOR/NURSE ANESTHETIST documented in this encounter Plan of Treatment Not on filedocumented as of this encounter Visit Diagnoses Diagnosis Diabetes mellitus, type 2 (HRC) - Primar y Type II or unspecified type diabetes dinora litus without mention of complication, not stated as uncontrolled OME (otitis media with effusion), right Impacted cerumen of right ear Impacted cerumen Encounter for immunization Need for other specified prophylactic va ccination against single bacterial disease documented in this encounter Care Teams Legal Process Specialist Relationship Specialty Start Date End Date Alisha Kimball MD PCP - General 07/08/05 [address] [place] [address] documented as of this encounter
--- OUTSIDE RECORDS SUMMARY | 2022-04-07 07:24 | XMS_ITS | Encounter Summary ---
:1955 Author Organization [facility] Address [address] [place] [address] Care Team Providers Name Role Phone Alisha Kimball MD Primary Care Provider Encounter Details Date Type Department Care Team Description 03/25/2017 Orders Only [facility] Torey Marcelo, Cardiac Non-Invasive Lab [address] [place] [address] [place], [place] [phone] (Wo rk) Social History Tobacco Use [...] Name Priority Date/Time Associated Diagnosis Comme nts KNOT PICKER CLOTH 03/25/2017 12:00 AM Resul ts for this CDT procedure are i n the results section. documented in this encounter Results KNOT PICKER CLOTH (03/25/2017 12:00 AM CDT) Specimen (Source) Anatomical Location Collection Method / Collectio n Time Received Time / Laterality Volume 03/25/2017 Narrative This result has an attachment that is no t available. Torey Marcelo MD DUMMY/OTHER/AR documented in this encounter Visit Diagnoses Not on filedocumented in this encounter Care Teams Art Department Head Relationship Specialty Start Date End Date Alisha Kimball MD PCP - General 07/08/[address] [place] [address] documented as of this encounter
--- OUTSIDE RECORDS SUMMARY | 2022-04-07 07:24 | XMS_ITS | Encounter Summary ---
:1955 Author [facility] Address [address] [place] [address] Care Team Providers Name Role Phone Alisha Kimball MD Primary Care Provider Encounter Details Date Type Department Care Team Description 06/07/2017 Correspondence [facility] Rad[facility], MRI SAFETY SHEET [address] [facility] [place] [address] Social History Tobacco Use Types Packs/Day Years [...] on filedocumented in this encounter Care Teams Information Security Specialist Relationship Specialty Start Date End Date Alisha Kimball MD PCP - General 07/08/[address] [place], [place] [phone] documented as of this encounter
--- OUTSIDE RECORDS SUMMARY | 2022-04-07 07:24 | XMS_ITS | Encounter Summary ---
:1955 Author Organization [facility] [address] [place] [address] Care Team Providers Name Role Phone Alisha Kimball MD Primary Care Provider Reason for Visit Procedure/Equipment (Routine) - Closed Specialty Diagnoses / Procedures Referred By Contact Refer red To Contact Diagnoses Syncope, unspecified [place] [address] [place], [place] [address] Referral ID Status Reason Start Date Expiration Date Visits Requ ested Visits Authorized [id number] Closed 03/04/2017 06/03/2018 1 1 Encounter Details Date Type Department Care Team Description 03/19/2017 Office Visit [facility] Cardiac Non-Invasive Lab [address] [place] [id number] Social History Tobacco Use Types Packs/Day Years Used Date Smoking Tobacco: Never Smokeless Tobacco: Never Alcohol Use Standard Drinks/Week Comments No 0 (1 standard drink = 0.6 oz pure alcoho l) Sex Assigned at Date Recorded Not on file documented as of this encounter Plan of Treatment Scheduled Referrals Name Type Priority Associated Diagnoses Order S chedule Holter Monitor Referral Routine Syncope, unspecified synco pe Ordered: 03/04/2017 type documented as of this encounter Visit Diagnoses Not on filedocumented in this encounter Care Teams Rn Documentation Relationship Specialty Start Date End Date Alisha Kimball MD PCP - General 07/08/[address] [place], [place] [id number] documented as of this encounter
--- OUTSIDE RECORDS SUMMARY | 2022-04-07 07:24 | XMS_ITS | Encounter Summary ---
:1955 Author Organization [facility] Address [address] [place] [address] Care Team Providers Name Role Phone Alisha Kimball MD Primary Care Provider Reason for Visit Reason Comments Follow-up Encounter Details Date Type Department Care Team Description 05/21/2017 Office Visit [facility] Janice Gill ssential hypertension (Primary Dx); Cardiology EMILY Whipple Paroxysmal atrial fibrillati on (HRC) [address] [place] [address] [id number] Social History Tobacco Use Types Packs/Day Years Used Date Smoking Tobacco: Never Smokeless Tobacco: Never Alcohol Use Standard Drinks/Week Comments No 0 (1 standard drink = 0.6 oz pure alcoho l) Sex Assigned at Date Recorded Not on file documented as of this encounter Last Filed Vital Signs Vital Sign Reading Time Taken Comments Blood Pressure 135/84 05/21/2017 8:53 AM SWITCHBOARD MECHANIC Pulse 57 05/21/2017 8:53 AM SWITCHBOARD MECHANIC Temperature - - Respiratory Rate - - Oxygen Saturation 98% 05/21/2017 8:05 AM SWITCHBOARD MECHANIC Inhaled Oxygen Concentration - - Weight 83 kg (183 lb) 05/21/2017 8:05 AM SWITCHBOARD MECHANIC Height 162.6 cm (5' 4) 05/21/2017 8:05 AM SWITCHBOARD MECHANIC Body Mass Index 31.41 05/21/2017 8:05 AM SWITCHBOARD MECHANIC documented in this encounter Patient Instructions Patient InstructionsJanice Gill PA-C - 05/21/2017 8:00 AM CST CARDIOLOGY PATIENT INSTRUCTIONS It was a pleasure to meet you, Melia. As we discussed, I recommend the followin) Increase Toprol XL to 200 mg daily 2) Start Eliquis 5 mg twice daily, you will need baseline labs with starting this medication 3) STOP ASA 81 mg daily 4) Routine exercise 5) Monitor Heart rate and blood pressure at home 6) Plan for follow up in 3 months, sooner if concerns develop Date Time Please do not hesitate to contact us with any questions or concerns. Regards, Janice Gill PA-C You may contact us at: --[facility] scheduling number- [phone] If having symptoms of concern, please ask to speak to a nurse. The flight crew scheduler will have a nurse call you to discuss your concerns. --After hours, contact the CareLine at [phone] or Here are Optional Education Web Sites to check out: WWW.[email or web address] Thank you for choosing [facility] for your Cardiology Care. CHBOARD MECHANIC documented in this encounter Progress Notes Roopa Nguyen RN - 05/24/2017 1:23 PM CST Letter sent with lab results and Janice Gill's comment and recommendations Roopa Nguyen RN 05/24/2017, 1:23 PM CHBOARD MECHANIC Roopa Nguyen RN - 05/24/2017 1:18 PM SWITCHBOARD MECHANIC Addended by: ROOPA NGUYEN on: 05/24/2017 01:18 PM Modules accepted: Orders CHBOARD MECHANIC Janice Gill PA-C - 05/21/2017 1:06 PM CST Baseline labs prior to starting Eliquis. Normal aside from mildly elevated ALT, which appears to be chronic and stable. Will recheck ALT again in 6 months. No changes to current plan. Janice Gill PA-C 05/21/2017, 1:06 PM CHBOARD MECHANIC Janice Gill PA-C - 05/21/2017 8:00 AM CST Cardiology Clinic Note 05/21/2017 SUBJECTIVE:Loc Velasco is a 62 y/o female w/ PMH significant for DM, HTN, HLD, PAF who presents for follow-up. She was recently seen for evaluation of PAF and syncope. She last saw Dr. Friedman in cardiology clinicon 04/22 at which time she was noting intermittent palpitations. Her metoprolol tartrate and HCTZ were discontinued. She was started on metoprolol succinate 100 mg every evening and a follow-up Holter m onitor was performed. Today, patient presents with her to review results of her Holter monitor and to discuss anticoagulation. Since last visit she reports that she has felt better with the switch from metoprolol tartrate to metoprolol succinate. She continues to have intermittent episodes of heart fluttering, palpitations, rapid heart rate. She did report some of these on the monitor, but states that she did not report all of the episodes. She plans to follow-up with pulmonology for a sleep study, but has not yet been able to do so. Her son was injured initially been in [place], and they have been traveling back and forth for the last couple of weeks. PAST MEDICAL HISTORY: PAF--on Apixaban DM HTN HLD FmHx CAD in 50s-60s MEDICATIONS: Amlodipine 5 mg daily Atorvastatin 10 mg daily Losartan 50 mg daily Toprol-XL 100 mg daily ROS: Pertinent findings per HPI. EXAM: Vitals: 05/21/17 0853 BP: 135/84 Pulse: (!) 57 Gen: Pleasant 62-year-old female sitting in examination chair in no acute distress Neck: Supple. No JVD Pulm: Clear to auscultation bilaterally. Normal effort of breathing. CV: Normal rate, regular rhythm , nl S1 & s2. No murmur Ext: Warm and well perfused, no edema. No cyanosis or clubbing. Skin: No rash. Psych: Normal affect Tests: Holter 03/2017: frequent PACs, PAF Stress 03/2017: ECG Stress Conclusions The patient exercised for 7 minutes 30 seconds on the Pratik protocol. Above average functional capacity for age. Rare 3-18 beat runs of SVT in recovery. No chest pain with exercise. Negative stress ECG for ST segment depression. Myocardial Perfusion Conclusions Myocardial perfusion imaging reveals no scan evidence of any significant territory of ischemia or infarction. Left ventricular size and wall motion are normal. Left ventricular ejection fraction is normal, EF 65%. No prior study available. Echo : Normal LV size and systolic function. ?? Normal RV size and function. ?? Moderate biatrial enlargement. ?? No significant valvular abnormalities. ?? No prior echo available. ?? Left Ventricular Ejection Fraction: 60 % Holter 05/2017: Sinus rhythm, PACs, atrial fibrillation. Heart rate 50-160 BPM. ASSESSMENT: 1. Orthostatic hypotension / syncope-- resolved. 2. PAF with intermittent RVR-- recent event monitor again showing RVR. Increase BB today. Discussed anticoagulation in detail with patient and her . CHADSVASc 3 (HTN, DM, female). We discussed risk of stroke associated with afib. We discussed the pros and cons of NOAC versus Coumadin. We discussed the potential risk of bleeding with anticoagulation. Patient was in agreement to proceed with starting Apixaban today. Baseline monitoring labs will be performed. 3. HTN-- elevated on initial check, at goal on recheck. Continue to monitor with recently stopping HCTZ. PLAN: 1) Increase Toprol XL to 200 mg daily 2) Start Eliquis 5 mg twice daily, you will need baseline labs with starting this medication 3) STOP ASA 81 mg daily 4) Routine exercise 5) Monitor Heart rate and blood pressure at home 6) Plan for follow up in 3 months, sooner if concerns develop Thank you for involving me in the care of your patient. If you have any questions or need additionalassistance please do not hesitate to contact me. Janice Gill PA-C 05/21/2017 [facility] Over 50% of the time of this visit was spent face to face with the patient coordinating care and counseling on anticoagulation indication of atrial fibrillation, discussing different anticoagulation medications, reviewing recent monitor report. part time flexible clerk was over 25 minutes. CHBOARD MECHANIC documented in this encounter Plan of Treatment Not on filedocumented as of this encounter Procedures Procedure Name Priority Date/Time Associated Diagnosis Comme nts CREATININE / GFR Routine 05/21/2017 9:10 Essential Results for this AM SWITCHBOARD MECHANIC hypertension procedure are i n the results section. APTT (ACTIVATED Routine 05/21/2017 9:10 Essential Results f or this PARTIAL THROMBOPLASTIN AM SWITCHBOARD MECHANIC hypertension proce dure are in TIME the results section. COMPLETE BLOOD Routine 05/21/2017 9:10 Essential Results fo r this COUNT-NO DIFF AM SWITCHBOARD MECHANIC hypertension procedure are in the results section. ALT (SGPT) Routine 05/21/2017 9:10 Essential Results for this AM SWITCHBOARD MECHANIC hypertension procedure are i n the results section. INR/PROTIME Routine 05/21/2017 9:10 Essential Results for this AM SWITCHBOARD MECHANIC hypertension procedure are i n the results section. documented in this encounter Results ALT (SGPT) (11/26/2017 7:30 AM CDT) athologist Signature ALT (SGPT) 44 0 - 55 U/L [facility] Specimen Anatomical Collection Method Collection Time Receive d Time (Source) Location / / Volume Laterality 11/26/2017 7:30 AM 8 7:33 CDT AM CDT Narrative [facility] - 11/26/2017 12:06 PM CDT Performed at [address] ??[id number] Janice Gill PA-C LAB_1 Performing Organization Address City/State/ZIP Code Phon e Number [facility] [phone] AST (11/26/2017 7:30 AM CDT) athologist Signature AST (SGOT) 26 10 - 40 U/L [facility] Specimen Anatomical Collection Method Collection Time Receive d Time (Source) Location / / Volume Laterality 11/26/2017 7:30 AM 8 7:33 CDT AM CDT Narrative [facility] - 11/26/2017 12:06 PM CDT Performed at [facility], [address] [place] [id number] Janice Gill PA-C LAB_1 Performing Organization Address City/[facility]/ZIP [facility] Phon e Number [facility] [phone] APTT (ACTIVATED PARTIAL THROMBOPLASTIN TIME (05/21/2017 9:10 AM SWITCHBOARD MECHANIC) athologist Signature PTT 29.0 24.0 - 37.0 [facility] Specimen Anatomical Collection Method Collection Time Receive d Time (Source) Location / / Volume Laterality 05/21/2017 9:10 AM 7 9:13 SWITCHBOARD MECHANIC AM SWITCHBOARD MECHANIC Narrative [facility] - 05/21/2017 9:38 AM CS T Performed at [facility] , [address] [place] [id number] Janice Gill PA-C LAB_1 Performing Organization Address [facility] Phon e Number [address] [address], [facility] INR/PROTIME (05/21/2017 9:10 AM SWITCHBOARD MECHANIC) athologist Signature Protime 12.3 12.0 - 14.5 [facility] INR 1.0 0.9 - 1.1 [facility] Specimen Anatomical Collection Method Collection Time Receive d Time (Source) Location / / Volume Laterality 05/21/2017 9:10 AM 7 9:13 SWITCHBOARD MECHANIC AM SWITCHBOARD MECHANIC Narrative [facility] - 05/21/2017 9:38 AM CS T Performed at [facility] , [address] [place] [id number] Janice Gill PA-C LAB_1 Performing Organization Address City/[facility]/ZIP [facility] Phon e Number [address] [address], [facility] CREATININE / GFR (05/21/2017 9:10 AM SWITCHBOARD MECHANIC) athologist Signature Creatinine 0.77 0.55 - [facility] 1.02 mg/dl HOSPITAL GFR, Estimated >60 >60 [facility] ml/min/1.7 [facility] 3m2 GFR, Est., If >60 >60 [facility] Black ml/min/1.7 [facility] 3m2 Specimen Anatomical Collection Method Collection Time Receive d Time (Source) Location / / Volume Laterality 05/21/2017 9:10 AM 7 9:13 SWITCHBOARD MECHANIC AM SWITCHBOARD MECHANIC [facility] - 05/21/2017 9:46 AM CS T Performed at [facility] , [address] [place] [address] Janice MONTELONGOC LAB_1 Performing Organization Address [facility] Phon e Number [address] [address] [place] [address], [facility] HEMOGRAM/PLTS (05/21/2017 9:10 AM SWITCHBOARD MECHANIC) athologist Signature WBC 6.8 4.0 - 11.0 [facility] RBC 4.34 4.0 - 5.2 [facility] Hemoglobin 12.9 12.0 - 16.0 [facility] g/dl [facility] HCT 38.8 36.0 - [address].0 [facility] MCV 89.4 80 - 100 fl [facility] MCH 29.7 26 - 34 pg [facility] MCHC 33.2 32 - 36 [facility] g/dl [facility] RDW 13.0 11.5 - 14.5 [facility] Platelets 219 150 - 450 [facility] MPV 9.6 9.4 - 12.4 [facility] Specimen Anatomical Collection Method Collection Time Receive d Time (Source) Location / / Volume Laterality 05/21/2017 9:10 AM 7 9:13 SWITCHBOARD MECHANIC AM SWITCHBOARD MECHANIC [facility] - 05/21/2017 9:25 AM CS T Performed at [facility] , [address] [place] [address] Janice Gill PA-C LAB_1 Performing Organization Address City/[facility] Phon e Number [address] [address], [facility] [phone] (ABNORMAL) ALT (SGPT) (05/21/2017 9:10 AM SWITCHBOARD MECHANIC) P athologist Signature ALT (SGPT) 70 (H) 0 - 55 U/L [facility] Specimen Anatomical Collection Method Collection Time Receive d Time (Source) Location / / Volume Laterality 05/21/2017 9:10 AM 7 9:13 SWITCHBOARD MECHANIC AM SWITCHBOARD MECHANIC Narrative [facility] - 05/21/2017 9:46 AM CS T Performed at [facility] , [address] [place] [address] Janice Gill PA-C LAB_1 Performing Organization Address City/State/ZIP Code Phon e Number [id number] [place] [address] documented in this encounter Visit Diagnoses Diagnosis Essential hypertension (HRC) - Primary Unspecified essential hypertension Paroxysmal atrial fibrillation (HRC) Atrial fibrillation Essential hypertension (HRC) - Primary Unspecified essential hypertension Paroxysmal atrial fibrillation (HRC) Atrial fibrillation Controlled type 2 diabetes mellitus with out complication, without long-term current use of insulin (HRC) Type 2 diabetes mellitus with hyperosmol arity without coma, without long-term current use of insulin (HRC) documented in this encounter Care Teams Compensation Specialist Relationship Specialty Start Date End Date Alisha Kimball MD PCP - General 07/08/05 [address] [place] [address] documented as of this encounter
--- OUTSIDE RECORDS SUMMARY | 2022-04-07 07:24 | XMS_ITS | Encounter Summary ---
:1955 Author Organization [facility] Address [address] [place] [address] Care Team Providers Name Role Phone Alisha Kimball MD Primary Care Provider Encounter Details Date Type Department Care Team Description 04/22/2017 Notes/Orders [facility] Tamy Friedman MD Cardiology [address] [facility] [address] [place] [address] [place] [address] [phone] Social History Tobacco Use Types Packs/Day Years [...] on filedocumented in this encounter Care Teams Pasteurizing Supervisor Relationship Specialty Start Date End Date Alisha Kimball MD PCP - General 07/08/[address] [place], [place] [id number] documented as of this encounter
--- OUTSIDE RECORDS SUMMARY | 2022-04-07 07:24 | XMS_ITS | Encounter Summary ---
:1955 Author Organization [facility] Address [address] [facility] [place] [address] Care Team Providers Name Role Phone Alisha Kimball MD Primary Care Provider Encounter Details Date Type Department Care Team Description 09/02/2017 Office Visit [facility] Janice Gill aroxysmal atrial fibrillation (HRC) (Primary Dx); Cardiology EMILY Whipple Heart palpitations; [address] [place] [address] Essential hypertension; [place] [address] TANNER (dyspnea on exertion) [phone] Social History Tobacco Use Types Packs/Day Years Used Date Smoking Tobacco: Never Smokeless Tobacco: Never Alcohol Use Standard Drinks/Week Comments No 0 (1 standard drink = 0.6 oz pure alcoho l) Sex Assigned at Date Recorded Not on file documented as of this encounter Last Filed Vital Signs Vital Sign Reading Time Taken Comments Blood Pressure 147/89 09/02/2017 7:55 AM CONSUMER CREDIT COUNSELOR Pulse 64 09/02/2017 7:55 AM CONSUMER CREDIT COUNSELOR Temperature - - Respiratory Rate 18 09/02/2017 7:21 AM CONSUMER CREDIT COUNSELOR Oxygen Saturation 97% 09/02/2017 7:21 AM CONSUMER CREDIT COUNSELOR Inhaled Oxygen Concentration - - Weight 85.3 kg (188 lb) 09/02/2017 7:21 AM CONSUMER CREDIT COUNSELOR Height 163.8 cm (5' 4.5) 09/02/2017 7:21 AM CONSUMER CREDIT COUNSELOR Body Mass Index 31.77 09/02/2017 7:21 AM CONSUMER CREDIT COUNSELOR documented in this encounter Patient Instructions Patient InstructionsJanice Gill PA-C - 09/02/2017 7:20 AM CST CARDIOLOGY PATIENT INSTRUCTIONS It was a pleasure to see you, Melia. As we discussed, I recommend the followin) Continue current cardiac medications 2) Monitor symptoms, if changes or worsening symptoms please call and we can consider repeating a monitor 3) Labs to be completed 11/2017 4) You can follow with Dr. Kimball for atrial fibrillation, return to cardiology if concerns Please do not hesitate to contact us with any questions or concerns. RegardsJanice PA-C You may contact us at: --[facility] [place] scheduling number- [phone] If having symptoms of concern, please ask to speak to a nurse. The tierce filler will have a nurse call you to discuss your concerns. --After hours, contact the CareLine at [phone] or UMER CREDIT COUNSELOR documented in this encounter Progress Notes Janice Gill PA-C - 09/02/2017 7:20 AM CST Cardiology Clinic Note 09/02/2017 SUBJECTIVE:Loc Velasco is a 62 y/o female [...] a follow-up Holter m onitor was performed. Last seen by myself 05/2017 at which time we started her on Eliquis for [id number] score of 3. Today, patient reports she is doing relatively well. Has not had any further dizziness, lightheadedness or syncope. Does continue to have intermittent episodes of pounding in her chest, mostly at nightwhen lying in bed or while sitting and watching TV. Does not notice these episodes during the day. So metimes can last a few minutes, other times can last up to an hour. Always resolves on its own without intervention. Does not seem to be related to exertion or activity. Otherwise, is active throughoutthe day. Walks 30 minutes - 1 hour daily at lunch time. No chest pain. On occasion when walking up hill she will feel short of breath but attributes this to weight gain and deconditioning. Can walk up and down stairs multiple times at her home without these symptoms. No bleeding concerns on Apixaban. PAST MEDICAL HISTORY: 1. PAF--on Apixaban 2. DM 3. HTN 4. HLD 5. FmHx CAD in 50s-60s MEDICATIONS: Amlodipine 5 mg daily Apixaban 5 mg bid Atorvastatin 10 mg daily Losartan 50 mg daily Toprol-XL 200 mg daily ROS: Pertinent findings per HPI. EXAM: Vitals: 09/02/17 0755 BP: (!) 147/89 Pulse: 64 Resp: Gen: Pleasant 62-year-old female sitting in examination chair in no acute distress Neck: Supple. No JVD. Pulm: Clear to auscultation bilaterally. Normal effort of breathing. CV: Normal rate, regular rhythm , nl S1 & s2. No murmur Ext: Warm and well perfused, no edema. No cyanosis or clubbing. Skin: No rash. Psych: Normal affect. Labs: Component Latest Ref Rng & Units 05/21/2017 12/07/2016 ALT (SGPT) 0 - 55 U/L 70 (H) 68 (H) Component Latest Ref Rng & Units 05/21/2017 03/04/2017 Hemoglobin 12.0 - 16.0 g/dl 12.9 12.9 Component Latest Ref Rng & Units 05/21/2017 03/04/2017 Creatinine 0.55 - 1.02 mg/dl 0.77 0.81 GFR, Estimated >60 ml/min/1.73m2 >60 >60 GFR, Est., If Black >60 ml/min/1.73m2 >60 >60 Tests: Holter 03/2017: frequent PACs, PAF Stress [...] syncope-- resolved. 2. PAF with intermittent RVR-- Intermittent reports of palpitations, may be symptoms related to paroxysms of atrial fibrillation, also noted to have frequent PACs on Holter monitor. In NSR by exam today. She declines repeat monitor. We discussed medication options of antiarrhythmic vs alternative medic ations for rate and symptom control and she would prefer to not add in new medication at this time. She would like to continue to monitor symptoms and if change or worsening will consider repeating testing. Continue metoprolol and apixaban. 3. HTN-- elevated on initial check, improved on recheck. Patient adamant that result of white coat hypertension, always elevated at medical appts. Has yearly appt with PCP in a couple months, if still elevated at that time may consider increasing amlodipine vs losartan. 4. SOB-- Patient reports SOB with walking up hills, only in morning. Feels may be related to deconditioning and weight gain. No symptoms when walking up and down stairs at home. Had stress test 03/2017 that did not show evidence of ischemia or infarction. Discussed repeating stress test with new symptoms, patient would prefer to monitor for now. We reviewed symptoms that would warrant immediate//prompt evaluation. PLAN: 1) Continue current cardiac medications 2) Monitor symptoms, if changes or worsening symptoms please call and we can consider repeating a monitor 3) Labs to be completed 11/2017 4) You can follow with Dr. Kimball for atrial fibrillation, return to cardiology if concerns Thank you for involving me in the care of your patient. If you have any questions or need additionalassistance please do not hesitate to contact me. Janice Gill PA-C 09/02/2017 [facility] [place] Over 50% of the time of this visit was spent face to face with the patient coordinating care and counseling on symptoms, testing, rate vs rhythm control for atrial fibrillation. director multimedia was over 25 minutes. UMER CREDIT COUNSELOR documented in this encounter Plan of Treatment Not on filedocumented as of this encounter Visit Diagnoses Diagnosis Paroxysmal atrial fibrillation (HRC) - P rimary Atrial fibrillation Heart palpitations Palpitations Essential hypertension (HRC) Unspecified essential hypertension TANNER (dyspnea on exertion) Other dyspnea and respiratory abnormalit y documented in this encounter Care Teams Seam Presser Relationship Specialty Start Date End Date Alisha Kimball MD PCP - General 07/08/05 [address] [place] [address] documented as of this encounter
--- OUTSIDE RECORDS SUMMARY | 2022-04-07 07:24 | XMS_ITS | Encounter Summary ---
:1955 Author Organization [facility] Address [address] [place] [address] Care Team Providers Name Role Phone Alisha Kimball MD Primary Care Provider Reason for Visit Procedure/Equipment (Routine) - Closed Specialty Diagnoses / Procedures Referred By Contact Refer red To Contact Diagnoses PAF (paroxysmal atrial fibrillation) (HRC) Alvarado Friedman MD [address] [place] [id number] Referral ID Status Reason Start Date Expiration Date Visits Requ ested Visits Authorized [id number] Closed 03/30/2017 06/29/2018 1 1 Encounter Details Date Type Department Care Team Description 04/22/2017 Office Visit [facility] atrial Cardiac Non-Invasive Lab fibrillation (HRC) [address] [place] [address] (Primary Dx) [place], [place] [id number] Social History Tobacco Use Types Packs/Day Years Used Date Smoking Tobacco: Never Smokeless Tobacco: Never Alcohol Use Standard Drinks/Week Comments No 0 (1 standard drink = 0.6 oz pure alcoho l) Sex Assigned at Date Recorded Not on file documented as of this encounter Patient Instructions Patient InstructionsMerna Hawthorne - 04/22/2017 10:00 AM CDT You had a test called: Echocardiogram. This test will help your care provider team determine if you have any problems with your heart valves or other heart structures. Your test will be interpreted by a physician later today. Your test results will be available to Dr. Friedman. Please follow up with your clinic if you have not received your test results within one week. documented in this encounter Progress Notes Alvarado Friedman MD - 04/22/2017 3:51 PM CDT Discussed in clinic documented in this encounter Plan of Treatment Not on filedocumented as of this encounter Procedures Procedure Name Priority Date/Time Associated Diagnosis Comme nts EJECTION FRACTION Routine 04/22/2017 10:16 Result s for this AM CDT procedure are i n the results section. CARDIAC ROUTINE Routine 04/22/2017 10:16 Paroxysmal atrial Res ults for this ECHOCARDIOGRAM AM CDT fibrillation (HRC) procedu re are in the results section. documented in this encounter Results EJECTION FRACTION (04/22/2017 10:16 AM CDT) P athologist Signature EF 60 % PROSOLV EF test type ECHO PROSOLV Specimen (Source) Anatomical Collection Method Collection Time Re ceived Time Location / / Volume Laterality 04/22/2017 10:16 AM CDT Alvarado Friedman MD [facility] DRESS OPERATOR/RH Performing Organization Address City/State/ZIP Code Phon e Number PROSOLV [address] [place] [address] CARDIAC ROUTINE ECHOCARDIOGRAM (04/22/2017 10:16 AM CDT) Specimen (Source) Anatomical Collection Method Collection Time Re ceived Time Location / / Volume Laterality 04/22/2017 10:16 AM CDT Narrative PROSOLV - 04/22/2017 3:39 PM CDT Contrast: ?Contrast Allergy: Clinical Indications:Paroxysmal atrial fibrillation ?? CONCLUSION: Normal LV size and systolic function. ? ? Normal RV size and function. ?? Moderate biatrial enlargement. ?? No significant valvular abnormalities. ?? No prior echo available. ?? Left Ventricular Ejection Fraction: 60 % ICD Codes: ? Technical Quality: Patient Vital Signs: Ht HT ??64 ?Ht(in): ?Wt (lb) :182 ?BSA: ?? 1.93 ?BP: ?138 ??/ 90 ? IV Information: IV Inserted By: IV Site: IV Site Appearance: IV Size: IV Removed By: IV Other: ?2D, Doppler a nd color flow Doppler study ?performed. ? Measurements: M-MODE IVS to PW Ratio MM ?1.1 ? 2D ECHO Body Height ? 64 in ? Body Weight ? 182 lb ? Body Surface Area ? 1.9 m? LV Diastolic Diameter Base LX ? 4.4 cm ?3.5-5.7 LV Systolic Diameter Base LX ?2. 6 cm ?2.3-4.9 LV Diastolic Diameter Index ? 2. 3 cm/m? IVS Diastolic Thickness ? 0.98 cm ? 0.6-1.1 cm LVPW Diastolic Thickness ? 0.91 cm ? 0.6-1.1 cm Aorta at Sinuses Diameter ? 3 .1 cm ? Ascending Aorta Diameter ? 2.9 cm ? LA Area 4C View ? 20.6 cm? LA Area 2C View ? 19.2 cm?<= 20 cm?? LA Volume ? 58.7 cm? LA Volume Index ? 30.4 cm??/m? 16-34 cm??/m?? DOPPLER AV Peak Velocity ?116 cm/s ? AV Peak Gradient ?5.4 mmHg ? AV Mean Gradient ?3 mmHg ? AV Velocity Time Integral ? 2 5.9 cm ? LVOT Peak Velocity ?85 cm/s ? LVOT Peak Gradient ?2.9 mmHg ? LVOT Mean Gradient ?2 mmHg ? LVOT Velocity Time Integral ? 20 .2 cm ? LVOT Diameter ? 2.1 cm ? LVOT Area ? 3.5 cm? LVOT AV VTI Ratio ? 0.78 ? AV Stroke Volume ?70 cm? AV Area Cont Eq vti ? 2.7 cm? AV Area Cont Eq pk ?2.5 cm? Mitral E Point Velocity ? 106 cm/s ? Mitral ??A Point Velocity ?72.3 cm/s ? Mitral E to A Ratio ? 1.5 ? MV Deceleration Time ?182 ms ? PV Peak Velocity ?96.4 cm/s ? PV Peak Gradient ?3.7 mmHg ? TR Peak Velocity ?186 cm/s ? TR Peak Gradient ?13.8 mmHg ? LV E' Lateral Velocity ?9.6 cm/s ? LV E' Septal Velocity ? 7.1 cm/s ? Mitral E to LV E' Lateral Ratio ?? 11.1 ? Mitral E to LV E' Septal Ratio ?15 ? COLOR DOPPLER LVOT Diameter ? 2.1 cm ? LA Area 4C View ? 20.6 cm? LA Area 2C View ? 19.2 cm?<= 20 cm?? LA Volume ? 58.7 cm? LA Volume Index ? 30.4 ml/m?16-34 cm??/m? Left Ventricle: ? Normal LV size an d systolic function. Grade II ? diastolic filling pattern. Right Ventricle: ?Normal RV size an d function. Left Atrium: ?Moderate biatri al enlargement. Right Atrium: Aortic Valve: ? The aortic valve is suboptimally visualized. Mitral Valve: ? Normal mitral va lve anatomy. Trace mitral ? regurgita tion. Tricuspid Valve: ?Trace to mild tri cuspid regurgitation. Pulmonic Valve: Aorta: ?Aorta subopt imally visualized. Pericardium: ?Normal pericard ium. IVC: ?IVC is <2.2 cm and collapses --> estimated RA ? pressure approx 3mmHg. IAS: ?Interatrial septum not well visualized, but ? probably intact. 3D Imaging/Contrast: ?Josue Mcmahon MD ??(Electronically Signed) ??Final Date:22 April 2017 15:38 Procedure Note Josue Mcmahon MD - 04/22/2017Formattin g of this note might be different from the original. Contrast: Contrast Allergy: Clinical Indications:Paroxysmal atrial fibrillation CONCLUSION: Normal LV size and systolic function. Normal RV size and function. Moderate biatrial enlargement. No significant valvular abnormalities. No prior echo available. Left Ventricular Ejection Fraction: 60 % ICD Codes: Technical Quality: Patient Vital Signs: Ht HT 64 Ht(in): Wt (lb):182 BSA: 1.93 BP: 138 / 90 IV Information: IV Inserted By: IV Site: IV Site Appearance: IV Size: IV Removed By: IV Other: 2D, Doppler and color flow Doppler stud y performed. Measurements: M-MODE IVS to PW Ratio MM 1.1 2D ECHO Body Height 64 in Body Weight 182 lb Body Surface Area 1.9 m?? LV Diastolic Diameter Base LX 4.4 cm 3. 5-5.7 LV Systolic Diameter Base LX 2.6 cm 2.3 -4.9 LV Diastolic Diameter Index 2.3 cm/m?? IVS Diastolic Thickness 0.98 cm 0.6-1.1 cm LVPW Diastolic Thickness 0.91 cm 0.6-1. 1 cm Aorta at Sinuses Diameter 3.1 cm Ascending Aorta Diameter 2.9 cm LA Area 4C View 20.6 cm?? LA Area 2C View 19.2 cm?? <= 20 cm?? LA Volume 58.7 cm?? LA Volume Index 30.4 cm??/m?? 16-34 cm? ?/m?? DOPPLER AV Peak Velocity 116 cm/s AV Peak Gradient 5.4 mmHg AV Mean Gradient 3 mmHg AV Velocity Time Integral 25.9 cm LVOT Peak Velocity 85 cm/s LVOT Peak Gradient 2.9 mmHg LVOT Mean Gradient 2 mmHg LVOT Velocity Time Integral 20.2 cm LVOT Diameter 2.1 cm LVOT Area 3.5 cm?? LVOT AV VTI Ratio 0.78 AV Stroke Volume 70 cm?? AV Area Cont Eq vti 2.7 cm?? AV Area Cont Eq pk 2.5 cm?? Mitral E Point Velocity 106 cm/s Mitral A Point Velocity 72.3 cm/s Mitral E to A Ratio 1.5 MV Deceleration Time 182 ms PV Peak Velocity 96.4 cm/s PV Peak Gradient 3.7 mmHg TR Peak Velocity 186 cm/s TR Peak Gradient 13.8 mmHg LV E' Lateral Velocity 9.6 cm/s LV E' Septal Velocity 7.1 cm/s Mitral E to LV E' Lateral Ratio 11.1 Mitral E to LV E' Septal Ratio 15 COLOR DOPPLER LVOT Diameter 2.1 cm LA Area 4C View 20.6 cm?? LA Area 2C View 19.2 cm?? <= 20 cm?? LA Volume 58.7 cm?? LA Volume Index 30.4 ml/m?? 16-34 cm??/ m?? Left Ventricle: Normal LV size and syst olic function. Grade II diastolic filling pattern. Right Ventricle: Normal RV size and fun ction. Left Atrium: Moderate biatrial enlargem ent. Right Atrium: Aortic Valve: The aortic valve is subop timally visualized. Mitral Valve: Normal mitral valve anato my. Trace mitral regurgitation. Tricuspid Valve: Trace to mild tricuspi d regurgitation. Pulmonic Valve: Aorta: Aorta suboptimally visualized. Pericardium: Normal pericardium. IVC: IVC is <2.2 cm and collapses --> e stimated RA pressure approx 3mmHg. IAS: Interatrial septum not well visual ized, but probably intact. 3D Imaging/Contrast: Josue Mcmahon MD (Electronically Signed) Final Date:22 April 2017 15:38 Alvarado Friedman MD [facility]ART CENTER ECHO/RH Performing Organization Address City/State/ZIP Code Phon e Number PROSOLV [address] [place] [address] documented in this encounter Visit Diagnoses Diagnosis Paroxysmal atrial fibrillation (HRC) - P rimary Atrial fibrillation documented in this encounter Care Teams Forex Trader Relationship Specialty Start Date End Date Alisha Kimball MD PCP - General 07/08/05 [address] [place] [address] documented as of this encounter
--- OUTSIDE RECORDS SUMMARY | 2022-04-07 07:24 | XMS_ITS | Encounter Summary ---
:1955 Author Organization [facility] Address [address] [place] [address] Care Team Providers Name Role Phone Alisha Kimball MD Primary Care Provider Reason for Referral Procedure/Equipment (Routine) - Incomplete Specialty Diagnoses / Procedures Referred By Contact Refer red To Contact Diagnoses PAF (paroxysmal atrial fibrillation) (HRC) Alvarado Friedman MD [address] [place] [address] Referral ID Status Reason Start Date Expiration Date Visits V isits Requested Authorized [id number] Incomplete 04/22/2017 07/22/2018 1 1 Scheduling Instructions Your provider has [...] next 7 days, please contact us at [phone]. Reason for Visit Reason Comments Revisit f/u echo, f/u event monitor recordings, discuss anticoagulation Encounter Details Date Type Department Care Team Description 04/22/2017 Office Visit [facility] Alvarado Friedman P AF (paroxysmal atrial fibrillation) (HRC) (Primary Dx); Cardiology Essential hypertension [address] [facility] [address] [place] [address] [place], [place] [phone] Social History Tobacco Use Types Packs/Day Years Used Date Smoking Tobacco: Never Smokeless Tobacco: Never Alcohol Use Standard Drinks/Week Comments No 0 (1 standard drink = 0.6 oz pure alcoho l) Sex Assigned at Date Recorded Not on file documented as of this encounter Last Filed Vital Signs Vital Sign Reading Time Taken Comments Blood Pressure 128/90 04/22/2017 3:59 PM CDT Pulse 68 04/22/2017 3:59 PM CDT Temperature - - Respiratory Rate 18 04/22/2017 3:56 PM CDT Oxygen Saturation 99% 04/22/2017 3:56 PM CDT Inhaled Oxygen Concentration - - Weight 82.6 kg (182 lb) 04/22/2017 3:56 PM CDT Height 162.6 cm (5' 4) 04/22/2017 3:56 PM CDT Body Mass Index 31.24 04/22/2017 3:56 PM CDT documented in this encounter Patient Instructions Patient InstructionsJeanna Khalil LPN - 04/22/2017 4:00 PM CDT It was a pleasure to see you today at [facility]. Dr. Friedman recommends that you... 1) Stop taking Metoprolol Tartrate and stop taking HCTZ. 2) Start taking Metoprolol Succinate 100 mg every evening. 3) Schedule to have a sleep study consult. Future Appointments Provider Department Center 04/23/2017 8:00 AM Kailey Christine, PharmD [facility] 05/21/2017 8:00 AM Janice Gill PA-C [facility] Cardiology [facility] Thank you for choosing [facility] for your Cardiology care. You may contact us at [facility] at [phone]. After hours, you may contact the Care Line at [phone] or . PRESCRIPTION FOR HEART HEALTHY EATING ?? Increase intake of fruits, vegetables and whole grains. Aim for 5-9 servings of fruits and vegetables daily with 20-30 grams of fiber daily. ?? Limit intake of saturated fat (from meat, eggs, dairy) and trans-fat (from fast-food, packaged/processed foods). Choose leaner meats, non-fat dairy products and healthier fats such as olive oil and canola oil. ?? Increase intake of omega-3 fatty acids in the form of seafood, especially salmon and tuna (3oz twice a week) and/or daily fish oil supplements (2-3 grams daily). ?? Eat a small handful of nuts daily (1oz.), especially almonds or walnuts. ?? Choose heart healthy margarines and other products containing plant-sterols. Brands include Benecol, Smart Balance, and TakeControl ?? Limit alcohol intake to one drink daily for women and two drinks daily for men for those who choose to consume alcohol. Red wine is particularly good for the heart. ?? Drinking green or black tea daily and eating dark chocolate in small amounts may also be beneficial. ?? Go to www.nhlbi.nih.gov and look under TLC Diet for more information, or ask for our resource list of recommended websites and cookbooks. documented in this encounter Progress Notes Alvarado Friedman MD - 04/22/2017 4:00 PM CDT Cardiology Clinic Note SUBJECTIVE I saw Loc Velasco for follow up today in cardiology clinic. This is a 62 y.o. woman history of DM, HTN, HLD who presents for follow-up. She was recently seen for evaluation of PAF and syncope. She was started on low dose BB. Subsequent event monitor showed afib with RVR - BB dose increased slightly. She reports some ongoing mild dizziness, but improved compared to prior. Not clearly related to palpitations (but unsure). No syncope. She has noted intermittent palpitations, possibly more at night.Possibly more recently with stress (son was injured in [place]). Possibly fatigue associated with BB. PAST MEDICAL HISTORY: PAF DM HTN HLD FmHx CAD in 50s-60s MEDICATIONS: Current Outpatient Prescriptions Medication Sig Dispense Refill [...] with breakfast. 360 Tab 11 ??? metoprolol tartrate (LOPRESSOR) 25 MG tablet Take 1.5 Tabs by mouth two times a day. 60 Tab 11 ??? traZODone (AKA DESYREL) 50 MG tablet Take 0.5-2 Tabs by mouth daily at bedtime. 30 Tab 5 No current facility-administered medications for this visit. EXAM Filed Vitals: 04/22/17 1556 04/22/17 1559 BP: (!) 148/91 (!) 128/90 Pulse: 75 68 Resp: 18 SpO2: 99% Weight: 182 lb (82.6 kg) Height: 5' 4 (1.626 m) Gen: Alert and oriented, NAD Neck: No JVD Pulm:Clear to auscultation bilaterally CV: RRR , nl S1 & s2, no S3 or S4, no murmurs, rubs, or gallops. Abd: Soft, non-distended Ext: Warm and well perfused, no edema Skin: No rash. Psych: Normal affect LABS Lab Results Component Value Date/Time [...] 12/01/2016 88 11/30/2015 150 (H) 10/27/2014 63 EKG 03/04/17: Sinus with PACs holter 03/2017: [...] EF 65%. No prior study available. Echo 04/2017 Normal LV size and systolic function. ?? Normal RV size and function. ?? Moderate biatrial enlargement. ?? No significant valvular abnormalities. ?? No prior echo available. ?? Left Ventricular Ejection Fraction: 60 % ASSESSMENT: 1. Orthostatic hypotension / syncope, resolved. 2. PAF with intermittent RVR. Increase BB today. May need further dose esscalation. 3. CHADSVAS 3 (HTN, DM, female). We discussed risk of stroke associated with afib. Pt would like to wait until follow-up appointment to start apixaban 5 mg BID for stroke prevention. PLAN: 1) Stop taking Metoprolol Tartrate 2) Stop taking HCTZ. 3) Start taking Metoprolol Succinate 100 mg every evening. This dose may need to be further increased depending on response to therapy. 4) Schedule to have a sleep study consult. 5) Keep follow-up appointment with cardiology in 1 month - may need further adjustments of metoprolol and initiation of anticoagulation. Thank you for involving me in the care of your patient. If you have any questions or need additionalassistance please do not hesitate to contact me. Alvarado Friedman MD Cardiology Pager [phone] documented in this encounter Plan of Treatment Not on filedocumented as of this encounter Visit Diagnoses Diagnosis PAF (paroxysmal atrial fibrillation) (HR C) - Primary Atrial fibrillation Essential hypertension (HRC) Unspecified essential hypertension documented in this encounter Care Teams Welder Manufacture Relationship Specialty Start Date End Date Alisha Kimball MD PCP - General 07/08/05 [address] [place] [address] documented as of this encounter
--- OUTSIDE RECORDS SUMMARY | 2022-04-07 07:24 | XMS_ITS | Encounter Summary ---
:1955 Author Organization [facility] Address [address] [place] [address] Care Team Providers Name Role Phone Alisha Kimball MD Primary Care Provider Encounter Details Date Type Department Care Team Description 07/28/2017 Office Visit [address] [id number] Social History Tobacco Use Types Packs/Day Years [...] on filedocumented in this encounter Care Teams Aviation Tactical Readiness Officer Relationship Specialty Start Date End Date Alisha Kimball MD PCP - General 07/08/[address] [place], [place] [phone] documented as of this encounter
--- OUTSIDE RECORDS SUMMARY | 2022-04-07 07:24 | XMS_ITS | Encounter Summary ---
:1955 Author Organization [facility] Address [address] [address] Care Team Providers Name Role Phone Carroll Avalos MD Primary Care Provider Reason for Visit Reason Comments Refill amLODIPine (NORVASC) 5 MG ta blet [Pharmacy Med Name: AMLODIPINE BESYLATE 5MG TABS]; losartan (COZAAR) 50 MG tablet [Pharmacy Med Name: LOSARTAN POTASSIUM 50MG TABS] Encounter Details Date Type Department Care Team Description 05/11/2017 Refill [facility] Carroll Avalos MD Refill (am[facility]ine [facility] [address] (NORVASC) 5 MG tablet [address] [place] [address] [Pharmacy Med Name: [place] [address] AMLODIPINE BESYLATE 5MG [phone] TABS]; lo sartan (COZAAR) 50 MG tablet [P harmacy Med Name: LOSAR DE SOUZA POTASSIUM 50MG TABS]) Social History Tobacco Use Types Packs/Day Years Used Date Smoking Tobacco: Never Smokeless Tobacco: Never Alcohol Use Standard Drinks/Week Comments No 0 (1 standard drink = 0.6 oz pure alcoho l) Sex Assigned at Date Recorded Not on file documented as of this encounter Nursing Notes Interface, Out Surescripts Prov Query - 05/11/2017 7:41 AM CST amLODIPine (NORVASC) 5 MG tablet [Pharmacy Med Name: AMLODIPINE BESYLATE 5MG TABS] Protocol: Cardiovascular - Calcium Channel Blockers -> This medication was discontinued on 03/04/2017 by GABRIELLE KAPLAN. -> Refill x 12 months, qty: 90, refills: 3 (until due for an office visit) Last qualifying visit: 03/04/2017 (in Family Practice) Next scheduled visit: None Last ordered by CARROLL AVALOS K: 01/22/2017 (109 days ago) QTY: 90, Refills: 0, Sig: take one tabletby mouth every day (unchanged) SBP: 125 mm Hg on 04/23/2017 DBP: 80 mm Hg on 04/23/2017 Powered by [employer], Reference: [id number], 05/11/2017 7:41:05 AM Luis Eduardo COREY: ARNOLD AMEZQUITA RN ([id number]) losartan (COZAAR) 50 MG tablet [Pharmacy Med Name: LOSARTAN POTASSIUM 50MG TABS] Protocol: Cardiovascular - Angiotensin II Receptor Blockers -> The most recent order on 05/07/2017. -> Refill x 12 months, qty: 90, refills: 3 (until due for an office visit, Cr check and K check) Last qualifying visit: 03/04/2017 (in Family Practice) Next scheduled visit: None Last ordered by CARROLL AVALOS K: 05/07/2016 (369 days ago) QTY: 90, Refills: 3, Sig: take 1 tab by mouth daily. (changed but equivalent) SBP: 125 mm Hg on 04/23/2017 DBP: 80 mm Hg on 04/23/2017 Cr: 0.81 mg/dL on 03/04/2017 K: 4.4 mEq/L on 03/04/2017 Powered by [employer], Reference: [id number], 05/11/2017 7:41:05 AM BUGGY LADLE TENDER, Pool: ARNOLD AMEZQUITA RN ([id number]) Y LADLE TENDER Interface, Out Gradeable Query - 05/11/2017 7:41 AM CST The following lab order(s) may be associated with the Result Note below: BASIC METABOLIC PANEL Notes Recorded by Torey Marcelo MD on 03/05/2017 at 6:39 PM Your A1C has gone up to 7.8 indicating diabetes not as well controlled. I recommend adding another medication. Please follow up with your primary doctor to discuss. Your other labs were normal. Torey Marcelo MD 03/05/2017, 6:39 PM Y LADLE TENDER documented in this encounter Plan of Treatment Not on filedocumented as of this encounter Visit Diagnoses Not on filedocumented in this encounter Care Teams Chilling Hood Operator Relationship Specialty Start Date End Date Carroll Avalos MD PCP - General 07/08/05 [address] [place] [address] documented as of this encounter
--- OUTSIDE RECORDS SUMMARY | 2022-04-07 07:24 | XMS_ITS | Encounter Summary ---
:1955 Author Organization [facility] Address [address] [place] [address] Care Team Providers Name Role Phone Alisha Kimball MD Primary Care Provider Reason for Visit Reason Comments Disease Registry Encounter Details Date Type Department Care Team Description 09/28/2017 Telephone [facility] Alisha Steinberg MD Disease Registry [address] [facility]. [address] [place] [address] [place], [place] [phone] (Wo rk) Social History Tobacco Use Types Packs/Day Years Used Date Smoking Tobacco: Never Smokeless Tobacco: Never Alcohol Use Standard Drinks/Week Comments No 0 (1 standard drink = 0.6 oz pure alcoho l) Sex Assigned at Date Recorded Not on file documented as of this encounter Nursing Notes Vero Robin - 09/29/2017 10:09 AM CDT Patient declined, has upcoming appointment with Dr. Kimball and has appointment in October with Pharm Dfor blood pressure check Jelena Corral - 09/28/2017 2:35 PM CDT lvm for patient to call back. Jelena Corral 09/28/2017, 2:35 PM Francesca Cho CMA - 09/28/2017 2:30 PM CDT This patient was identified from the Disease Registry as being out of goal or almost out of goal forone or more of their Optimal Care Measures. Please contact the patient by phone. The patient is due for the following care items: Diabetes - Patient is due for Blood pressure check The following visits are recommended: ?? Nurse BP Check Francesca Cho 09/28/2017, 2:31 PM documented in this encounter Plan of Treatment Not on filedocumented as of this encounter Visit Diagnoses Not on filedocumented in this encounter Care Teams Dredge Pipe Installer Relationship Specialty Start Date End Date Alisha Kimball MD PCP - General 07/08/05 [address] [place] [address] documented as of this encounter
--- OUTSIDE RECORDS SUMMARY | 2022-04-07 07:24 | XMS_ITS | Encounter Summary ---
:1955 Author Organization [facility] Address [address] [place] [address] Care Team Providers Name Role Phone Alisha Kimball MD Primary Care Provider Reason for Visit Reason Comments Lab Orders Needed Encounter Details Date Type Department Care Team Description 10/12/2017 Telephone [facility] Alisha Steinberg MD Lab Orders Needed [address] [place] [address] [place], [place] [phone] (Wo rk) Social History Tobacco Use Types Packs/Day Years Used Date Smoking Tobacco: Never Smokeless Tobacco: Never Alcohol Use Standard Drinks/Week Comments No 0 (1 standard drink = 0.6 oz pure alcoho l) Sex Assigned at Date Recorded Not on file documented as of this encounter Nursing Notes Alisha Kimball MD - 10/13/2017 7:47 AM CDT OK. See orders. Alisha Kimball MD Paula Saini - 10/12/2017 6:54 PM CDT Patient on lab schedule for lab visit. No lab orders found in chart. Please place lab orders or contact patient to discuss lab visit. Thank you. SP lab. documented in this encounter Plan of Treatment Not on filedocumented as of this encounter Results Basic Metabolic Panel (11/26/2017 7:30 AM CDT) [...] AM 8 7:33 CDT AM CDT Narrative [facility] - 11/26/2017 12:05 PM CDT Performed at [facility], [address] [place] [address] ??[id number] Alisha Kimball MD LAB_1 Performing Organization Address City/State/ZIP Code Phon e Number [facility] [phone] (ABNORMAL) Hgb A1c (11/26/2017 7:30 AM CDT) [...] - 11/26/2017 12:56 PM CDT Performed at [facility], [address] [place] [address] ??[id number] Alisha Kimball MD LAB_1 Performing Organization Address [facility] Phon e Number [facility] [phone] Lipid Panel and Direct LDL(If Needed) (11/26/2017 7:30 AM CDT) [facility] Method Time Signature Hours Fasting 12 hours [...] - 11/26/2017 12:05 PM CDT Performed at [facility], [address] [place] [address] ??[id number] Alisha Kimball MD LAB_1 Performing Organization Address [facility] Phon e Number [facility] [phone] documented in this encounter Visit Diagnoses Diagnosis Controlled type 2 diabetes mellitus with out complication, without long-term current use of insulin (HRC) - Primary Essential hypertension (HRC) - Primary Unspecified essential hypertension Paroxysmal atrial fibrillation (HRC) Atrial fibrillation Controlled type 2 diabetes mellitus with out complication, without long-term current use of insulin (HRC) Type 2 diabetes mellitus with hyperosmol arity without coma, without long-term current use of insulin (HRC) documented in this encounter Care Teams Windows Technical Specialist Relationship Specialty Start Date End Date Alisha Kimball MD PCP - General 07/08/05 [address] [place] [address] documented as of this encounter
--- OUTSIDE RECORDS SUMMARY | 2022-04-07 07:24 | XMS_ITS | Encounter Summary ---
:1955 Author Organization [facility] Address [address], [place] [address] Care Team Providers Name Role Phone Alisha Kimball MD Primary Care Provider Encounter Details Date Type Department Care Team Description 03/04/2017 Notes/Orders [facility] Torey Marcelo Syncope, unspecified syncope type; Rakesh Sosa MD Diabetes mellitus, type 2 ([facility]) [address] [place] [id number] [phone] Social History Tobacco Use Types Packs/Day Years Used Date Smoking Tobacco: Never Smokeless Tobacco: Never Alcohol Use Standard Drinks/Week Comments No 0 (1 standard drink = 0.6 oz pure alcoho l) Sex Assigned at Date Recorded Not on file documented as of this encounter Progress Notes Torey Marcelo MD - 03/05/2017 6:39 PM CDT Your A1C has gone up to 7.8 indicating diabetes not as well controlled. I recommend adding another medication. Please follow up with your primary doctor to discuss. Your other labs were normal. Torey Marcelo MD 03/05/2017, 6:39 PM documented in this encounter Plan of Treatment Not on filedocumented as of this encounter Procedures Procedure Name Priority Date/Time Associated Diagnosis Comme nts BASIC METABOLIC Routine 03/04/2017 9:26 AM Syncope, unspecifie d Results for this PANEL CDT syncope type procedure are i n the results section. COMPLETE BLOOD Routine 03/04/2017 9:26 AM Syncope, unspecified Results for this COUNT-NO DIFF CDT syncope type procedure are in the results section. HGB A1C Routine 03/04/2017 9:26 AM Diabetes mellitus, Res ults for this CDT type 2 (HRC) procedure are i n the results section. documented in this encounter Results (ABNORMAL) Hgb A1c (03/04/2017 9:26 AM CDT) P athologist Signature Hgb A1c 7.8 (H) 4.3 - 5.6 [facility] % [...] Time (Source) Location / / Volume Laterality 03/04/2017 9:26 AM 7 9:27 CDT AM CDT Narrative [facility] - 03/04/2017 3:36 PM C DT Performed at [facility], [address] [place] [address] ??[id number] Torey Marcelo MD LAB_1 Performing Organization Address City/State/ZIP Code Phon e Number [facility] [phone] Basic Metabolic Panel (03/04/2017 9:26 AM CDT) Analysis Performed At Patho logist Time Signature Sodium 140 136 - 145 [facility] mmol/L [facility] Potassium 4.4 3.5 - 5.1 [facility]/L [facility] Chloride 107 98 - 109 [facility]L [facility] CO2 23 20 - 29 [facility]/L [facility] Anion Gap 10 7 - 16 [facility] (calc.) mmol/L [facility] Glucose 146 70 - 180 [facility] mg/dl [facility] Calcium 10.0 8.4 - 10.2 [facility] mg/dl [facility] BUN 23 7 - 26 [facility] mg/dl [facility] Creatinine 0.81 0.55 - [facility] 1.02 mg/dl [facility] GFR, Estimated >60 >60 [facility] ml/min/1.7 [facility] 3m2 GFR, Est., If >60 >60 [facility] Black ml/min/1.7 [facility] 3m2 Specimen Anatomical Collection Method Collection Time Receive d Time (Source) Location / / Volume Laterality 03/04/2017 9:26 AM 7 9:27 CDT AM CDT Narrative [facility] - 03/04/2017 3:55 PM C DT Performed at [address] ??[id number] Toery Marcelo MD LAB_1 Performing Organization Address [facility] Phon e Number [facility] [phone] Complete Blood Count-No Diff (03/04/2017 9:26 AM CDT) athologist Signature WBC 7.2 4.0 - 11.0 [facility] k/ul RBC 4.39 4.0 - 5.2 [facility] M/ul Hemoglobin 12.9 12.0 - 16.0 [facility] g/dl HCT 38.3 36.0 - 46.0 [facility] % MCV 87.2 80 - 100 fl [facility] MCH 29.4 26 - 34 pg [facility] MCHC 33.7 32 - 36 [facility] g/dl RDW 13.1 11.5 - 14.5 [facility] % Platelets 260 150 - 450 [facility] k/ul Specimen Anatomical Collection Method Collection Time Receive d Time (Source) Location / / Volume Laterality 03/04/2017 9:26 AM 7 9:27 CDT AM CDT Narrative [facility] - 03/04/2017 4:02 PM C DT Performed at [address] ??[id number] Torey Marcelo MD LAB_1 Performing Organization Address [facility] Phon e Number [facility] [phone] documented in this encounter Visit Diagnoses Diagnosis Syncope, unspecified syncope type Diabetes mellitus, type 2 (HRC) Type II or unspecified type diabetes dinora litus without mention of complication, not stated as uncontrolled documented in this encounter Care Teams Alodize Machine Helper Relationship Specialty Start Date End Date Alisha Kimball MD PCP - General 07/08/05 [address] [place] [address] documented as of this encounter
--- OUTSIDE RECORDS SUMMARY | 2022-04-07 07:24 | XMS_ITS | Encounter Summary ---
:1955 Author Organization [facility] Address [address] [facility] [place] [address] Care Team Providers Name Role Phone Alisha Kimball MD Primary Care Provider Encounter Details Date Type Department Care Team Description 07/28/2017 Consent for [facility] RH INFORM ED CONSENT FOR Procedure/Treatment SLEEP/AU ABRAM/VIDEO Social History Tobacco Use Types Packs/Day Years [...] on filedocumented in this encounter Care Teams Edi Manager Relationship Specialty Start Date End Date Alisha Kimball MD PCP - General 07/08/[address] [place], [place] [phone] documented as of this encounter
--- OUTSIDE RECORDS SUMMARY | 2022-04-07 07:24 | XMS_ITS | Encounter Summary ---
:1955 Author Organization [facility] Address [address], [place] [address] Care Team Providers Name Role Phone Alisha Kimball MD Primary Care Provider Reason for Visit Reason Comments Dental Exam none Dental Hygiene Encounter Details Date Type Department Care Team Description 09/17/2017 Office Visit [facility] Travis Turner Denta l Exam (none); Dentistry [facility] Dental Hygiene [address] [facility] [address] [facility] [address] [facility] [address] [place] [address] [place], [place] [phone] Social History Tobacco Use Types Packs/Day Years Used Date Smoking Tobacco: Never Smokeless Tobacco: Never Alcohol Use Standard Drinks/Week Comments No 0 (1 standard drink = 0.6 oz pure alcoho l) Sex Assigned at Date Recorded Not on file documented as of this encounter Last Filed Vital Signs Vital Sign Reading Time Taken Comments Blood Pressure 141/78 09/17/2017 2:16 PM CDT Pulse 54 09/17/2017 2:16 PM CDT Temperature - - Respiratory Rate - - Oxygen Saturation - - Inhaled Oxygen Concentration - - Weight - - Height - - Body Mass Index - - documented in this encounter Patient Instructions Patient InstructionsTravis Turner RD - 09/17/2017 2:00 PM CDT Your next hygiene recall is due 03/16/2018 PERSONAL DENTAL RISK REPORT FOR LOC [facility] Caries (Tooth Decay) Risk Periodontal (Gum Disease) Risk Oral Cancer Risk Your Risk Level Moderate High Moderate X Low This exam Your Risk Level Moderate Low High Moderate X Low X This exam Your Risk Level Low Elevated Low X This exam Your Risk Factors How To Reduce Your Risk Rinse with fluoride rinse once or twice daily at times other than when brushing Your Risk Factors Have had a diagnosis of gum disease; with or without past treatment Diagnosed with either Type I or Type II diabetes How To Reduce Your Risk Use of specific products to assist with proper oral hygiene; for example; electric toothbrush with timer Specific information about what causes periodontal disease and what steps can be taken to help control it Return visit with the dental hygienist [...] should help you maintain this low risk. [place], we look forward to seeing you at your next visit! Thank you for choosing [facility]. documented in this encounter Progress Notes Travis Turner RDH - 09/17/2017 2:00 PM CDT PROPHY NOTE PROPHY/ASSESSMENT:[id number]::PROPHY NOTE Presentation ?? Oral Hygiene: normal ?? Plaque: localized; light; supra-gingival and sub-gingival ?? Calculus:localized; light; supra-gingival and sub-gingival ?? Stain: localized; moderate; coffee/tea ?? Bleeding: localized; light ?? Gingival tissue: normal ?? Mucogingival concerns: absent Activities ?? Treatment included: OHI, hand scale and essential selective polishing Patient Education ?? Discussion topics: OHI Travis Turner 09/17/2017, 2:54 PM Completed dental procedures in this visit ??? PROPHYLAXIS-ADULT RECALL ??? PERIODIC ORAL EVALUATION Chief Complaint: Treatment Options: ??? [id number] Montse Leblanc DDS - 09/17/2017 2:00 PM CDT RECALL EXAM NOTE Chief Complaint Patient presents with ??? Dental Exam none ??? Dental Hygiene Chart Review ?? Reviewed health history, dental history, problem list, periodontal charting and radiographs with the patient Soft tissue, head and neck examination ?? Lips: normal ?? Tongue: normal ?? Palate: normal ?? Throat: normal ?? Floor of the mouth: normal ?? Mucosa: normal ?? Head and neck: normal TMD Evaluation ?? Palpation pain: none ?? Joint sounds: none ?? Pain with range of motion: none Occlusal examination ?? Angle relationship: Right molar: class I Right cuspid: class I Left molar: class II Left cuspid:class II ?? Maxillary midline: R 4mm ?? Mandibular midline: within normal limits ?? Overbite: 6 mm ?? Overjet: 5 mm ?? Crossbite: none ?? Space loss: none ?? Crowding: not evident ?? Occlusion: all teeth ?? Attrition: normal ?? Erosion: absent ?? Overall occlusal relationship: stable Cosmetic concerns ?? Patient???s perception: acceptable ?? Dentist???s perception: acceptable Treatment Review and Follow-up ?? Dental Findings: were described to the patient: yes; and they expressed understanding: yes ?? Treatment options and prognosis were discussed: yes ?? Informed patient consent was obtained: yes; after all questions were answered: yes ?? Recommended Recall Examination: 6 months Recall prophy: 6 months ?? Planned Recall Examination: 6 months Recall prophy: 6 months Montse Leblanc DDS 09/17/2017, 2:52 PM documented in this encounter Plan of Treatment Not on filedocumented as of this encounter Procedures Procedure Name Priority Date/Time Associated Diagnosis Comme nts [id number] Routine 09/17/2017 2:54 PM CDT Chronic charlie odontitis, localized, slight PERIODIC ORAL Routine 09/17/2017 2:54 PM CDT Chronic periodont itis, EVALUATION localized, slight PROPHYLAXIS-ADULT Routine 09/17/2017 2:54 PM CDT Chronic perio dontitis, RECALL localized, slight 20 EXISTING ROOT CANAL Routine 10/02/2011 11:00 PM TREATMENT CDT 15 EXISTING PFM CROWN Routine 07/09/2009 12:00 AM [facility] 19 EXISTING PFM CROWN Routine 07/09/2009 12:00 AM [facility] 20 EXISTING PFM CROWN Routine 07/09/2009 12:00 AM [facility] 5 DO EXISTING AMALGAM Routine 07/09/2009 12:00 AM [facility]ILLING [facility] 21 DO EXISTING AMALGAM Routine 07/09/2009 12:00 AM [facility] 13 DO EXISTING AMALGAM Routine 07/09/2009 12:00 AM [facility] 2 MO EXISTING AMALGAM Routine 07/09/2009 12:00 AM [facility] 2 L EXISTING AMALGAM Routine 07/09/2009 12:00 AM [facility] 4 MOD EXISTING AMALGAM Routine 07/09/2009 12:00 AM [facility] 29 O EXISTING AMALGAM Routine 07/09/2009 12:00 AM [facility] documented in this encounter Visit Diagnoses Diagnosis Chronic periodontitis, localized, slight - Primary Gingivitis, chronic, non-plaque induced Chronic gingivitis, non-plaque induced Fractured dental yazidi with loss o f material Fractured dental restorative material wi th loss of material Tooth fracture Open wound of tooth (broken) (fractured) (due to trauma), without mention of complication Visit for periodic health examination Unspecified general medical examination Pulp necrosis Necrosis of dental pulp Tooth sensitivity Other specified diseases of hard tissues of teeth Open margin on tooth yazidi Open yazidi margins Caries of dentin Dental caries extending into dentine Periodontal disease Unspecified gingival and periodontal dis ease documented in this encounter Care Teams Cosmetic Sales Relationship Specialty Start Date End Date Alisha Kimball MD PCP - General 07/08/05 [address] [place] [address] documented as of this encounter
--- OUTSIDE RECORDS SUMMARY | 2022-04-07 07:24 | XMS_ITS | Encounter Summary ---
:1955 Author Organization [facility] Address [address] [place] [address] Care Team Providers Name Role Phone Alisha Kimball MD Primary Care Provider Reason for Referral Consult/Transfer Care (Routine) - Closed Specialty Diagnoses / Procedures Referred By Contact Refer red To Contact Diagnoses Psychophysiological insomnia Tomás Oswald MD [address] [place] [address] Referral ID Status Reason Start Date Expiration Date Visits Requ ested Visits Authorized [id number] Closed 08/30/2017 11/29/2018 1 1 Scheduling Instructions [facility] staff will be co ntacting you to schedule your CBT for Insomnia appointment. NO CAGE SUPERVISOR Consult/Transfer Care (Routine) - Closed Specialty Diagnoses / Procedures Referred By Contact Refer red To Contact Diagnoses MARYANNE (obstructive sleep apnea) Tomás Oswald MD [address] [place] [address] Referral ID Status Reason Start Date Expiration Date Visits Requ ested Visits Authorized [id number] Closed 08/30/2017 11/29/2018 1 1 Scheduling Instructions DENTAL DEVICE FOR SLEEP APNEA: Your phys ician has ordered that you receive a dental orthotic for sleep apnea. Dental devices are created by dental providers, however are usually covered under your medical insur ance. In most cases, your medical insurance will require prior authorization for the dental device. Remember, prior authorization does not mean you are covered 100% - you may be responsible for a co-payment, co-insurance and/or deductible. INSURED BY [employer]: If you are in sured by [facility] and plan to use a HP or HP Partner Provider of Dental Orthoti cs, we will request prior authorization for you. You will be notified by [facility] ers Insurance of their decision. If approved and if you plan to use a HP Provider of Dental Orthotics, the dental office will contact you to schedule an appointment. If you have not been called, please call one of these clinics where this service is provided [facility] [phone]. [facility] (scheduling at [facility] and [place]) [phone]. If you choose to use a non-HP or HP Part ner provider, you will be responsible for working with your dentist and insurance company to obtain prior authorization. [facility]: You will b e responsible for working with your dentist and insurance company to obtain prior au thorization. Today you will be provided with the order for the dental orthotic. Addit ional information will be provided upon request. It may take up to 4 weeks for y our insurance company to make a determination on prior authorization. NO CAGE SUPERVISOR Reason for Visit Reason Comments New Arrival Screening #[address] Roe, neck measures 15 inches. Consult/Transfer Care (Routine) - Closed Specialty Diagnoses / Procedures Referred By Contact Refer red To Contact Diagnoses Obstructive sleep apnea syndrome Jonna Roe MD [address] [place] [address] Referral ID Status Reason Start Date Expiration Date Visits Requ ested Visits Authorized [id number] Closed 08/08/2017 11/07/2018 1 1 Encounter Details Date Type Department Care Team Description 08/30/2017 [facility] Visit [facility] Tomás Oswald, MARYANNE (o bstructive sleep apnea) (Primary Dx); [facility] Psychophysiological insomnia Clinic [address] [facility] [address] [facility] [id number] [phone] Social History Tobacco Use Types Packs/Day Years Used Date Smoking Tobacco: Never Smokeless Tobacco: Never Alcohol Use Standard Drinks/Week Comments No 0 (1 standard drink = 0.6 oz pure alcoho l) Sex Assigned at Date Recorded Not on file documented as of this encounter Last Filed Vital Signs Vital Sign Reading Time Taken Comments Blood Pressure 132/80 08/30/2017 12:43 PM [employer]INO [employer] SUPERVISOR Pulse 60 08/30/2017 12:43 PM [employer]INO [employer]AGE SUPERVISOR Temperature 36 ??C (96.8 ??F) 08/30/2017 12:43 PM CASINO CAGE SUPERVISOR Respiratory Rate 12 08/30/2017 12:43 PM CASINO CAGE SUPERVISOR Oxygen Saturation 97% 08/30/2017 12:43 PM CASINO CAGE SUPERVISOR Inhaled Oxygen Concentration - - Weight 83.9 kg (185 lb) 08/30/2017 12:43 PM CASINO CAGE SUPERVISOR Height 162.6 cm (5' 4) 08/30/2017 12:43 PM CASINO CAGE SUPERVISOR Body Mass Index 31.76 08/30/2017 12:43 PM CASINO CAGE SUPERVISOR documented in this encounter Progress Notes Tomás Oswald MD - 08/30/2017 1:00 PM CST Outpatient Sleep Medicine Consultation 08/30/2017 Name: Loc Velasco Age: 62 y.o. Date of : 1955 Date of Consultation: 08/30/2017 Consultation is requested by: Jonna Roe MD [address] [place], [place] [id number] Primary care provider: Alisha Kimball MD Reason for Sleep Consult: Follow up sleep study Assessment and Plan: Summary Diagnoses/Recommendations: 1. MARYANNE, borderline ?? Clinical examination: Mallampati 3, neck size 15, BMI 31 ?? Polysomnography: RDI of 5.9 AHI 5.5. ?? Patient is unwilling to try CPAP Recommendations: ?? Dental appliance fitting ?? Consider home sleep apnea screening test once dental appliance fitted 2. psychophysiological insomnia Recommendations ?? Cognitive behavioral therapy referral 3. DM, HTN, HLD, PAF ?? Is followed by primary care and cardiology I spent today 40 minutes with the patient, 30 minutes were related to discussion of sleep apnea, psychophysiological insomnia, medical condition, treatment options and long-term prognosis. Patient willfollow up as needed in our clinic Plan as given to patient as above. See AVS. Chief Complaint: Sleep apnea test History of Present Illness: Loc Velasco is a 62 y.o. female she is dealing was significant medical problems including hypertension, hyperlipidemia, paroxysmal atrial fibrillation and diabetes. In light of the significant medical problems she was referred for sleep study. Here she did not sleep well. Her sleep efficiency was 36 percent. She slept only 43 hours. The patient not during these short sleep amount a AHI of 5.5. She was referred for an APAP set up but she does not like the CPAP machine. She overall has no real sleep concerns. I am she has a hard time falling asleep but not in the morning getting up. She is tired in the afternoon. She is tossing and turning all night in order to fall asleep. She has some mind racing before she goes to bed. She is technically tired at the time of her bedtime but then again takes a half an hour to 2 hours to fall asleep. Trazodone did not agree with her. Patient made it very clear to me that under no circumstances she will try a CPAP machine. It is veryuncomfortable for her. She does not like any headgear. She cannot fall asleep with it. Sleep testin07/2017 Baseline: 1. This study was performed in order to evaluate for MARYANNE. 2. A sleep aid medication was self-administered. 3. The total sleep time was 184.0 minutes. The sleep latency was normal at 11.7 minutes. The REM sleep latency was delayed 307.0 minutes. Sleep efficiency was very poor at 36.2%. The sleep architecture was preserved with some sleep stage changes and arousals with an arousal index of 6.5. 4. Sleep Architecture: Stage N1 4.3%, Stage N2 35.6%, Stage N3 43.2%, Stage R 16.8%, with 312.0 minutes of WASO . 5. Snoring: Was reported as loud. 6. Respiratory Events: A total of 0 obstructive apneas, 0 central apneas, 0 mixed apneas, 17 hypopneas, and 1 RERAs were noted for an RDI of 5.9 and an AHI of 5.5. The REM RDI was 11.6. The lowest O2 saturationwas 85.0 and the total sleep time with an SpO2 ? 88% was 8.6 minutes on room air. 7. Positional Data: Lateral AHI 5.9, Lateral RDI 5.9, Lateral TST 88.4%, Supine AHI 2.8, Supine RDI 5.6, Supine TST 11.6%. 8. This study indicates mild obstructive sleep apnea. Other: 1. EEG: No epileptiform activity was noted during this recording. 2. EMG: Frequent periodic limb movements were noted. PLM index was 35.9, with a PLM arousal index of2.0. 3. EKG: No significant cardiac arrhythmias were noted. 4. TCM/EtCO2: Mean N/A mmHg, Max N/A mmHg Recommendations: 1. Consider a trial of auto-titrating CPAP to establish optimal treatment pressure(s). SLEEP-WAKE SCHEDULE: Regular Workday bedtime 9-10 pm, Awakening 4:30-5 am. Uses alarm: Yes Nonworkday bedtime 11 pm, Awakening 8 am. Hours of sleep/night: 7 hours/night Awakenings: occasional She wakes up feeling unrefreshed Naps: None Her bedroom is dark, quiet, TV and radio are off. TV in Bed: no INSOMNIA: frequent Typical sleep latency: 30 minutes; prolonged 7 nights/week Sleep promoting agent: no SLEEPINESS: ?? Excessive daytime sleepiness (EDS): Mild?!, ESS 04/27. ?? Driving concerns with sleepiness: No SLEEP COMPLAINTS: Cardio-respiratory MARYANNE - Snoring: Yes, loud ?? Morning headaches: No, ?? Dry mouth: No, ?? Snort arousals: No, Coexisting Lung disease: no Coexisting Heart disease: YES Does patient have a bed partner: yes Has bed partner been sleeping separately because of snoring: No RLS symptoms: No Limb discomfort on falling asleep: none Discomfort in legs or arms that resolves with stretching or walking: none Periodic limb movement: none Narcolepsy: has no sudden urges of sleep attacks ??? Cataplexy: denies ??? Sleep paralysis: denies ??? Hallucinations: denies Sleep Behaviors: ?? Leg movements: no ?? Bruxism: No ?? Automatic behaviors: none Other subjective complaints: ?? Anxiety or rumination: Yes mindracing when fa;lling asleep ?? Leg/limb symptoms: none ?? Pain and discomfort at night: none ?? Waking up with heart pounding or racing: none ?? Nocturnal GERD or aspiration while sleeping: No Parasomnia: No NREM - denies recurrent persistent confusional arousal, night eating, sleep walking or sleep terrors REM - denies dream enactment; injuries Medications: Current Outpatient Prescriptions Medication Sig Dispense Refill ??? amLODIPine (NORVASC) 5 MG tablet TAKE ONE TABLET BY MOUTH EVERY DAY 90 Tab 3 ??? apixaban (ELIQUIS) 5 MG tablet Take 1 Tab by mouth two times a day. 180 Tab 3 ??? atorvastatin (LIPITOR) 10 MG tablet TAKE ONE TABLET BY MOUTH EVERY DAY (Patient taking differently: taking 1/2 tablet daily) 90 Tab 3 ??? blood glucose (ACCU-CHEK STACEY PLUS) test strip Use to test two times a day. Use as directed. Pharmacy dispense brand based on insurance. 200 Each 3 ??? blood glucose monitoring device Dispense 1 meter. 1 Each PRN ??? fluticasone (FLONASE) 50 MCG/ACT nasal solution Place 1 [place] into both nostrils daily. decreaseto 1 spray [...] breakfast. 360 Tab 11 ??? metoprolol succinate (TOPROL-XL) 200 MG 24 hour release tablet Take 1 Tab by mouth daily at bedtime. 90 Tab 3 ??? traZODone (AKA DESYREL) 50 MG tablet Take 0.5-2 Tabs by mouth daily at bedtime. 30 Tab 5 No current facility-administered medications for this visit. Allergies Allergen Reactions ??? Sulfa Antibiotics Redness and Swelling Immunizations: Current Immunizations Reviewed on 05/19/2017 Name Date Flu Vac (3+ yrs) 04/18/2010 Influenza (Fluarix 0.5, 3+ yrs or FluLaval 0.5) 05/19/2017 Influenza Vaccine - Historical 04/28/2007 PPSV23 (Pneumovax) 10/31/2012 Td 06/01/1994 Tdap 04/01/2012, 09/09/2006 Varicella Deferred (Immune by Disease) Zoster (shingles) 05/19/2017 Past Medical History: Does not need 02 supplement at night Past Medical History: Diagnosis Date ??? Diabetes mellitus type II 05/14/2010 ??? Diverticulosis of colon ??? Hypertension (HRC) ??? Normal delivery X 3 Past Surgical History: No h/o upper airway surgery Past Surgical History: Procedure Laterality Date ??? HYSTERECTOMY 1998 menorrhagia ??? OTHER - PROCEDURES 1999 [place] for stress incontinence Social History: Social History Substance Use Topics ??? Smoking status: Never Smoker ??? Smokeless tobacco: Never Used ??? Alcohol use No Family History: Family History Problem Relation Age of Onset [...] History ??? Macular Degeneration Negative Family History Review of Systems: A complete 12 point review of systems was negative other than HPI as above. Physical Examination: Vitals Comprehensive 08/30/2017 Ht 5' 4 Wt 185 lb Kg 83.915 kg BP 132/80 BP Pos Sitting BP Site Right Arm BP Cuff Regular BMI 31.75 BSA 1.95 Temp 96.8 Temp Src Tympanic Pulse 60 Patient Positon - BP Location - BP Method - BP Cuff Size - Resp 12 O2 Sat 97 On Oxygen? No Peak Flow - Pain Score - Exclude in GC - Neck Circum 15 LMP - Mallampati: Class III: soft palate, fauces, base of uvula Tonsils: +1 Constitutional: . Awake, alert, cooperative, dressed casually, good eye contact, comfortably sittingin a chair, in no apparent distress Mood: euthymic; affect congruent with full range and intensity. Attention/Concentration: Normal Eyes: No icterus. ENT: No retrognathia, micrognathia, does not have small and crowded oropharynx, does not have low-lying soft palate, macroglossia/scalloped tongue, and elongated uvula, and adequate dentition Cardiovascular: Regular S1 and S2, Neck: supple, no thyroid enlargement. Pulmonary: Chest symmetric, lungs clear bilaterally and no crackles, wheezes or rales Abdomen: Obese/Protuberant/scaffoid Extremities: No pedal edema. Gait normal. Neurologic: alert, oriented x3, Psych: alert, oriented, normal affect. Data: All pertinent previous laboratory data reviewed Lab Results Component Value Date/Time Alkaline Phosphatase 85 12/07/2016 0921 Bilirubin, Total 0.5 12/07/2016 0921 Bilirubin, Direct 0.2 12/07/2016 0921 Protein, Total 7.1 12/07/2016 0921 Albumin 3.8 12/07/2016 0921 AST (SGOT) 31 12/07/2016 0921 ALT (SGPT) 70 (H) 05/21/2017 0910 Lab Results Component Value Date/Time SELAM Screen Negative 12/07/2016 0921 Lab Results Component Value Date/Time WBC 6.8 05/21/2017 0910 RBC 4.34 05/21/2017 0910 Hemoglobin 12.9 05/21/2017 0910 HCT 38.8 05/21/2017 0910 MCV 89.4 05/21/2017 0910 RDW 13.0 05/21/2017 0910 Platelets 219 05/21/2017 0910 Lab Results Component Value Date/Time TSH, Sensitive 1.84 12/01/2016 0714 Above ancillary tests were personally reviewed during the office visit. Thank you for this consultation. I appreciate the opportunity to participate in your patient's care.We will continue to follow Ms. Velasco with you. Tomás Oswald MD, PhD Diplomate of the [place] Board of [employer]iatry and Neurology Certified in Sleep Medicine, [place] [employer] Special[employer] 08/30/2017 CC: Alisha Kimball MD NO CAGE SUPERVISOR documented in this encounter Plan of Treatment Scheduled Referrals Name Type Priority Associated Diagnoses Order S chedule Dental Sleep Apnea Referral Routine MARYANNE (obstructive sleep apnea) Ordered: Consult 08/30/2017 Cbt For Insomnia Referral Routine Psychophysiological inso mnia Ordered: 08/30/2017 documented as of this encounter Visit Diagnoses Diagnosis MARYANNE (obstructive sleep apnea) - Primary Obstructive sleep apnea (adult) (pediatr ic) Psychophysiological insomnia Persistent disorder of initiating or ted ntaining sleep documented in this encounter Care Teams Recruitment Internship Relationship Specialty Start Date End Date Alisha Kimball MD PCP - General 07/08/05 [address] [place] [address] documented as of this encounter
--- OUTSIDE RECORDS SUMMARY | 2022-04-07 07:25 | XMS_ITS | Encounter Summary ---
:1955 [facility] Address [address], [place] [address] Care Team Providers Name Role Phone Alisha Kimball MD Primary Care Provider Reason for Visit Reason Comments MEDICATION THERAPY MANAGEMENT Encounter Details Date Type Department Care Team Description 03/12/2016 Office Visit [facility] Tesha Maxwell, Diabetes mellitus, type 2 (H RC) (Primary Dx); [address] [facility] PharmD Essential hypertension; [place], [place] [address] Hypercholeste rolemia (HRC) [address] [facility] [phone] [place] [address] Social History Tobacco Use Types Packs/Day Years Used Date Smoking Tobacco: Never Smokeless Tobacco: Never Alcohol Use Standard Drinks/Week Comments No 0 (1 standard drink = 0.6 oz pure alcoho l) Sex Assigned at Date Recorded Not on file documented as of this encounter Last Filed Vital Signs Vital Sign Reading Time Taken Comments Blood Pressure 124/93 03/12/2016 7:38 AM CDT Pulse 77 03/12/2016 7:36 AM CDT Temperature - - Respiratory Rate - - Oxygen Saturation - - Inhaled Oxygen Concentration - - Weight 82.1 kg (181 lb) 03/12/2016 7:30 AM CDT Height - - Body Mass Index 31.07 12/09/2015 10:17 AM CDT documented in this encounter Patient Instructions Patient InstructionsTesha Maxwell PharmD - 03/12/2016 7:26 AM CDT 1) Increase to amlodipine 5mg 1.5 tabs daily. 2) Monitor for swelling. Please let me know if swelling returns. 3) Your follow-up blood pressure check is scheduled for April 09 at 8:00am. Please call me or e-mail if you have questions. Thanks, Tesha Maxwell PharmD [facility] on Wednesday & Wednesday [facility] on & Wednesday documented in this encounter Progress Notes Tesha Maxwell PharmD - 03/12/2016 7:25 AM CDT Sole Velasco is a 61 y.o. old female who was referred by Employer group for diabetes management/education. Melia presents today for follow-up. She has been doing well since our last visit, reductionto amlodipine 5mg daily has eliminated her ankle swelling. She has not been checking her blood pressure at home. Patient reports increased physical activity walking 2+ miles daily and/or biking. She has lost some weight and has noted a significant improvement in blood sugars. Her most recent A1C was 6.6, done from 7.3. Continues to meet cholesterol guidelines with atorvastatin 10mg daily and is taking aspirin 81mg daily. Eye exam is up to date, however is due for foot exam. Pt denies dizziness, headache, fatigue, chest pain/pressure, palpitations, cough , heartburn/reflux, diarrhea, muscle pain, edema, bruising, bleeding and hypoglycemia Exercise: walking and/or biking daily Diet:low sodium, carb counting Medication optimization: Patient reports missing a dose of medication in the past week: no O Adherence: Ability to assess medication adherence objectively: Able. According to VMAT, patient adherence is: Good - > 80% adherent to all chronic medications. ALLERGIES: Allergies Allergen Reactions ??? Sulfa Drugs Redness and Swelling PROBLEM LIST: Patient Active Problem List Diagnosis ??? Mallet finger ??? Family history of osteoporosis ??? Diabetes mellitus, type 2 (HRC) ??? Hypertension (HRC) ??? Hypercholesterolemia (HRC) ??? Heart palpitations History Smoking status ??? Never Smoker Smokeless tobacco ??? Never Used ASPIRIN USE: Yes There were no vitals taken for this visit. BP Readings from Last 2 Encounters: 12/09/15 118/84 10/10/15 134/86 HGB A1C (%) Date Value 03/06/2016 6.6* Lab Results Component Value Date/Time TSH, WITH REFLEX 1.465 10/30/2013 07:37 AM Estimated body mass index is 31.40 kg/(m^2) as calculated from the following: Height as of 12/09/15: 5' 4 (1.626 m). Weight as of 12/09/15: 183 lb (83.008 kg). CHOLESTEROL (mg/dl) Date Value 11/30/2015 143 HDL (mg/dl) Date Value 11/30/2015 41 LDL, CALC. (mg/dl) Date Value 11/30/2015 72 TRIGLYCERIDE (mg/dl) Date Value 11/30/2015 150* 10/30/2013 118 AST (SGOT) (U/L) Date Value 12/16/2012 31 ALT (SGPT) (U/L) Date Value 11/30/2015 74* BILIRUBIN, TOTAL (mg/dl) Date Value 12/16/2012 0.9 CREATININE (mg/dl) Date Value 11/30/2015 0.73 GFR, ESTIMATED (ml/min/1.73m2) Date Value 11/30/2015 >60 GFR, EST., IF BLACK (ml/min/1.73m2) Date Value 11/30/2015 >60 POTASSIUM (mmol/L) Date Value 11/30/2015 4.8 SODIUM (mmol/L) Date Value 11/30/2015 143 A BP goal :<140/90. Pt is not at goal. LDL goal: moderate intensity statin. Pt is at goal. HgbA1C goal: <8%. Pt is at goal. 1. HTN and amlodipine. Effectiveness - Dosage Too Low: dosage adjustment recommended P 1) per CPA increase to amlodipine 5mg 1.5 tabs daily. Patient to monitor for edema, if noted she will contact me right away. Will consider alternative BP medication is higher amlodipine dose is not tolerated. 2) A copy of the After Visit Summary was provided to patient, details were reviewed by me and all questions were answered. 3) Follow-up appointment scheduled for April 09 at 8:00am. Updated [employer] list and reviewed medications including indications with patient. Total time spent with patient 15 minutes. Tesha Maxwell PharmD Clinical Pharmacist Medication Therapy Management Program documented in this encounter Plan of Treatment Not on filedocumented as of this encounter Visit Diagnoses Diagnosis Diabetes mellitus, type 2 (HRC) - Primar y Type II or unspecified type diabetes dinora litus without mention of complication, not stated as uncontrolled Essential hypertension (HRC) Unspecified essential hypertension Hypercholesterolemia Pure hypercholesterolemia documented in this encounter Care Teams Occupational Health Physician Relationship Specialty Start Date End Date Alisha Kimball MD PCP - General 07/08/05 [address] [place] [address] documented as of this encounter
--- OUTSIDE RECORDS SUMMARY | 2022-04-07 07:25 | XMS_ITS | Encounter Summary ---
:1955 [facility] Address [address] [place] [address] Care Team Providers Name Role Phone Alisha Kimball MD Primary Care Provider Encounter Details Date Type Department Care Team Description 04/01/2016 Consent for [facility] Department [facility] INFORM ED CONSENT Procedure/Treatment RECORD Social History Tobacco Use Types Packs/Day Years [...] on filedocumented in this encounter Care Teams Regional Guide Relationship Specialty Start Date End Date Alisha Kimball MD PCP - General 07/08/05 [address] [place] [id number] documented as of this encounter
--- OUTSIDE RECORDS SUMMARY | 2022-04-07 07:25 | XMS_ITS | Encounter Summary ---
:1955 Author Organization [facility] Address [address] [facility] [place] [address] Care Team Providers Name Role Phone Alisha Kimball MD Primary Care Provider Reason for Visit Procedure/Equipment (Routine) - Closed Specialty Diagnoses / Procedures Referred By Contact Refer red To Contact Diagnoses Encounter for screening for malignant neoplasm of colon Alisha Kimball MD [address] [place] [address] Referral ID Status Reason Start Date Expiration Date Visits Requ ested Visits Authorized [id number] Closed 12/09/2015 03/09/2017 1 1 Encounter Details Date Type Department Care Team Description 04/01[facility]2016 [facility] Jean Claude [facility]auhan[facility]ia [facility] [address] [place] [address] [place], [place] [phone] Social History Tobacco Use Types Packs/Day Years Used Date Smoking Tobacco: Never Smokeless Tobacco: Never Alcohol Use Standard Drinks/Week Comments No 0 (1 standard drink = 0.6 oz pure alcoho l) Sex Assigned at Date Recorded Not on file documented as of this encounter Last Filed Vital Signs Vital Sign Reading Time Taken Comments Blood Pressure 119/77 04/01/2016 8:35 AM CDT Pulse 73 04/01/2016 8:40 AM CDT Temperature - - Respiratory Rate 18 04/01/2016 8:40 AM CDT Oxygen Saturation 94% 04/01/2016 8:40 AM CDT Inhaled Oxygen Concentration - - Weight - - Height - - Body Mass Index - - documented in this encounter Patient Instructions Patient InstructionsDenisse Blair RN - 04/01/2016 8:35 AM CDT Images from the original note were not included. Today's Exam Findings: - The examined portion of the ileum was normal. - Diverticulosis in the sigmoid colon and in the descending colon. - Two 7 mm polyps in the rectum. Resected and retrieved. Colon Polyps: Care Instructions Your Care Instructions Colon polyps are growths in the colon or the rectum. The cause of most colon polyps is not known, and most people who get them do not have any problems. But a certain kind can turn into cancer. For this reason, regular testing for colon polyps is important for people age 50 and older and anyone who has an increased risk for colon cancer. Polyps are usually found through routine colon cancer screening tests. Although most colon polyps are not cancerous, they are usually removed and then tested for cancer. Screening for colon cancer saves lives because the cancer can usually be cured if it is caught early. If you have a polyp that is the type that can turn into cancer, you may need more tests to examine your entire colon. The doctor will remove any other polyps that he or she finds, and you will be tested more often. Follow-up care is a israel part of your treatment and safety. Be sure to make and go to all appointments, and call your doctor if you are having problems. It's also a good idea to know your test results and keep a list of the medicines you take. How can you care for yourself at home? Regular exams to look for colon polyps are the best way to prevent polyps from turning into colon cancer. These can include a test for blood in the stool (fecal occult blood test), colonoscopy, and sigmoidoscopy. Talk with your doctor about a testing schedule that is right for you. To prevent polyps There is no home treatment for colon polyps. But you can take steps to prevent them from forming. ?? Get regular exercise and stay at a healthy body weight. Exercise can lower your chance of gettingcolon cancer. Get at least 30 minutes of exercise on most days of the week. Walking is a good choice. You also may want to do other activities, such as running, swimming, cycling, or playing tennis or team sports. ?? Limit alcohol to 2 drinks a day for men and 1 drink a day for women. Too much alcohol can cause health problems. ?? Do not smoke. Smoking can raise your risk of getting colon polyps. If you need help quitting, talk to your doctor about stop-smoking programs and medicines. These can increase your chances of quitting for good. ?? Eat lots of fruits and vegetables, and limit animal fat in your diet. When should you call for help? Call your doctor now or seek immediate medical care if: ?? You have severe belly pain. ?? Your stools are maroon or very bloody. Watch closely for changes in your health, and be sure to contact your doctor if: ?? You have a fever. ?? You have nausea or vomiting. ?? You have a change in bowel habits (new constipation or diarrhea). ?? Your symptoms get worse or are not improving as expected. Where can you learn more? Go to n1health/Nano ePrint and enter C571 in the search box. Current as of: May 24, 2015 Content Version: 108 ?? [id number] Get[employer]. Learning About Diverticulosis and Diverticulitis What are diverticulosis and diverticulitis? In diverticulosis and diverticulitis, pouches called diverticula form in the wall of the large intestine, or colon. ?? In diverticulosis, the pouches do not cause any pain or other symptoms. ?? In diverticulitis, the pouches get inflamed or infected and cause symptoms. Doctors aren't sure what causes these pouches in the colon. But they think that a low-fiber diet mayplay a role. Without fiber to add bulk to the stool, the colon has to work harder than normal to push the stool forward. The pressure from this may cause pouches to form in weak spots along the colon. Some people with diverticulosis get diverticulitis. But experts don't know why this happens. What are the symptoms? ?? In diverticulosis, most people don't have symptoms. But pouches sometimes bleed. ?? In diverticulitis, symptoms may last from a few hours to a week or more. They include: ?? Belly pain. This is usually in the lower left side. It is sometimes worse when you move. This is the most common symptom. ?? Fever and chills. ?? Bloating and gas. ?? Diarrhea or constipation. ?? Nausea and sometimes vomiting. ?? Not feeling like eating. How can you prevent these problems? You may be able to lower your chance of getting diverticulitis. You can do this by taking steps to prevent constipation. ?? Eat fruits, vegetables, beans, and whole grains every day. These foods are high in fiber. ?? Drink plenty of fluids (enough so that your urine is light yellow or clear like water). If you have kidney, heart, or liver disease and have to limit fluids, talk with your doctor before you increase the amount of fluids you drink. ?? Get at least 30 minutes of exercise on most days of the week. Walking is a good choice. You also may want to do other activities, such as running, swimming, cycling, or playing tennis or team sports. ?? Take a fiber supplement, such as Citrucel or Metamucil, every day if needed. Read and follow all instructions on the label. ?? Schedule time each day for a bowel movement. Having a daily routine may help. Take your time and do not strain when having a bowel movement. Some people avoid nuts, seeds, berries, and popcorn. They believe that these foods might get trappedin the diverticula and cause pain. But there is no proof that these foods cause diverticulitis or make it worse. How are these problems treated? ?? The best way to treat diverticulosis is to avoid constipation. (See the tips above.) ?? Treatment for diverticulitis includes antibiotics and often a change in your diet. You may need only liquids at first. Your doctor may suggest pain medicines for pain or belly cramps. In some cases,surgery may be needed. Follow-up care is a israel part of your treatment and safety. Be sure to make and go to all appointments, and call your doctor if you are having problems. It's also a good idea to know your test results and keep a list of the medicines you take. Where can you learn more? Go to n1health/Nano ePrint and enter E426 in the search box. Current as of: May 24, 2015 Content Version: 108 ?? [id number] [employer], [employer]. documented in this encounter Progress Notes Jean Claude Chauhan MD - 04/08/2016 12:25 PM CDT Quick Note: Colon 5 years Jean Claude Chauhan MD - 04/01/2016 8:00 AM CDT CC: Colonoscopy HPI: Patient here for colonoscopy. Clinically asymptomatic. History and Physical PMH: Reviewed PSH: Reviewed Social Hx: Reviewed Allergies: Reviewed Medications: Reviewed Family History: Reviewed (No history of colon cancer) Review of Systems: Pertinent ROS done. Exam: Alert, awake and oriented. Vitals: See documentation flowsheet. Pre-Sedation Assessment Head and Neck: Examined Chest: Clear to auscultation. No wheezes or rales. CVS: Regular, rate, rhythm. Abdomen: Abdomen soft, non-tender without masses or organomegaly. Extremities: Examined Hx sedation/anesthesia reaction: No Airway abnormal: No ASA: P2 A patient with mild systemic dz Plan: Colonoscopy under moderate sedation Supervising provider: Jean Claude Chauhan MD Potential risks and complications of procedure have been discussed with patient. Consent obtained prior to procedure. Jean Claude Chauhan MD 04/01/2016, 7:59 AM documented in this encounter Plan of Treatment Not on filedocumented as of this encounter Procedures Procedure Name Priority Date/Time Associated Diagnosis Comme nts COLONOSCOPY Routine 04/01/2016 8:03 AM Screen for colon Resul ts for this CDT cancer procedure are i n the results section . SURGICAL PATH Routine 04/01/2016 7:00 AM Screen for colon Resu lts for this CDT cancer procedure are i n the results section . documented in this encounter Results COLONOSCOPY [[id number]] (04/01/2016 8:03 AM CDT) Specimen (Source) Anatomical Collection Method Collection Time Re ceived Time Location / / Volume Laterality 04/01/2016 8:03 AM CDT Narrative [facility]) - 04/01/2016 8:31 AM CDT Instrument Name: 181 Indications: ? Screening for c olorectal malignant neoplasm Providers: ? Jean Claude Hanna i, Rosi Lauren LPN, Ivelisse May. ? CAITLYN Palmer Referring MD: ?Yadira Cutler Medicines: ? Midazolam 4 mg IV, Fentanyl 100 micrograms IV Complications: ? No immediate com plications. Procedure: ? Pre-Anesthesia Assessment: ? - Prior t o the procedure, a History and Physical was ? performed , and patient medications and allergies were ? reviewed. The patient is competent. The risks and ? benefits of the procedure and the sedation options ? and risks were discussed with the patient. All ? questions were answered and informed consent was ? obtained. Patient identification and proposed ? procedure were verified by the physician in the ? pre-proce dure area. Mental Status Examination: alert ? and orimaisha conroy. Airway Examination: normal ? oropharyn geal airway and neck mobility. Respiratory ? Examinati on: clear to auscultation. CV Examination: ? normal. P rophylactic Antibiotics: The patient does ? not requi re prophylactic antibiotics. Prior ? Anticoagu lants: The patient has taken no previous ? anticoagu lant or antiplatelet agents. ASA Grade ? Assessmen t: II - A patient with mild systemic ? disease. After reviewing the risks and benefits, the ? patient w as deemed in satisfactory condition to ? undergo t he procedure. The anesthesia plan was to use ? moderate sedation / analgesia (conscious sedation). ? Immediate ly prior to administration of medications, ? the patie nt was re-assessed for adequacy to receive ? sedatives . The heart rate, respiratory rate, oxygen ? saturatio ns, blood pressure, adequacy of pulmonary ? ventilati on, and response to care were monitored ? throughou t the procedure. The physical status of the ? patient w as re-assessed after the procedure. ? After I o btained informed consent, the scope was ? passed un lucien direct vision. Prior to sedation, ? patient waldemar dentity and procedure was reverified. ? Throughou t the procedure, the patient's blood ? pressure, pulse, and oxygen saturations were ? monitored continuously. The PCF-H190L was introduced ? through t he anus and advanced to the terminal ileum. ? The colon oscopy was performed without difficulty. The ? patient t olerated the procedure well. The quality of ? the bowel preparation was good. Findings: ? The perianal and digital rectal e xaminations were normal. ? The terminal ileum appeared niurka l. ? Multiple small and large-mouthed diverticula were found in the ? sigmoid colon and in the descendi ng colon. ? Two sessile polyps were found in the rectum. The polyps were 7 mm in ? size. These polyps were removed w ith a cold biopsy forceps. Resection ? and retrieval were complete. ? Small internal hemerrhoids. Impression: ?- The examined portion of the ileum was normal. ? - Diverti culosis in the sigmoid colon and in the ? descendin g colon. ? - Two 7 m m polyps in the rectum. Resected and ? retrieved . Recommendation: ?- Return to refe ring physician ? - Await P ath results. I will contact with letter in ? 1-2 weeks . ? - High fi lakshmi diet. Procedure Code(s): ?? --- Professional - -- ? 67599, PT , Colonoscopy, flexible; with biopsy, single ? or multip le Diagnosis Code(s): ?? --- Professional - -- ? Z12.11, E ncounter for screening for malignant ? neoplasm of colon ? K62.1, Re ctal polyp ? K57.30, D iverticulosis of large intestine without ? perforati on or abscess without bleeding CPT copyright 2015 [employer]. All rights reserved. The codes documented in this report are preliminary and upon regional director of finance review may be revised to meet current complianc e requirements. Attending Participation: MD Jean Claude Stanton, 04/01/2016 8:30:39 AM Number of Addenda: 0 Note Initiated On: 04/01/2016 8:03 AM Procedure Note Jean Claude Chauhan MD - 04/01/2016Ras ng of this note might be different from the original. Instrument Name: 181 Indications: Screening for colorectal ma lignant neoplasm Providers: Jean Claude Chauhan, Rosi brian LPN, Ivelisse Palmer RN Referring MD: Alisha Kimball MD Medicines: Midazolam 4 mg IV, Fentanyl 1 00 micrograms IV Complications: No immediate complication s. Procedure: Pre-Anesthesia Assessment: - Prior to the procedure, a History and Physical was performed, and patient medications and allergies were reviewed. The patient is competent. The risks and benefits of the procedure and the sedat ion options and risks were discussed with the patie nt. All questions were answered and informed co nsent was obtained. Patient identification and pr oposed procedure were verified by the physicia n in the pre-procedure area. Mental Status Exami nation: alert and oriented. Airway Examination: niurka l oropharyngeal airway and neck mobility. Respiratory Examination: clear to auscultation. CV Examination: normal. Prophylactic Antibiotics: The p atient does not require prophylactic antibiotics. P rior Anticoagulants: The patient has taken n o previous anticoagulant or antiplatelet agents. A SA Grade Assessment: II - A patient with mild sy stemic disease. After reviewing the risks and benefits, the patient was deemed in satisfactory cond ition to undergo the procedure. The anesthesia p quynh was to use moderate sedation / analgesia (consciou s sedation). Immediately prior to administration of medications, the patient was re-assessed for adequac y to receive sedatives. The heart rate, respiratory rate, oxygen saturations, blood pressure, adequacy o f pulmonary ventilation, and response to care were monitored throughout the procedure. The physical status of the patient was re-assessed after the proce dure. After I obtained informed consent, the scope was passed under direct vision. Prior to se dation, patient identity and procedure was reve rified. Throughout the procedure, the patient's blood pressure, pulse, and oxygen saturations were monitored continuously. The PCF-H190L w as introduced through the anus and advanced to the te rminal ileum. The colonoscopy was performed without d ifficulty. The patient tolerated the procedure well. T he quality of the bowel preparation was good. Findings: The perianal and digital rectal examina tions were normal. The terminal ileum appeared normal. Multiple small and large-mouthed divert icula were found in the sigmoid colon and in the descending col on. Two sessile polyps were found in the re ctum. The polyps were 7 mm in size. These polyps were removed with a cold biopsy forceps. Resection and retrieval were complete. Small internal hemerrhoids. Impression: - The examined portion of th e ileum was normal. - Diverticulosis in the sigmoid colon a nd in the descending colon. - Two 7 mm polyps in the rectum. Resect ed and retrieved. Recommendation: - Return to refering kian bautista - Await Path results. I will contact [facility] letter in 1-2 weeks. - High fiber diet. Procedure Code(s): --- Professional --- 43004, PT, Colonoscopy, flexible; with biopsy, single or multiple Diagnosis Code(s): --- Professional --- Z12.11, Encounter for screening for mal ignant neoplasm of colon K62.1, Rectal polyp K57.30, Diverticulosis of large intesti ne without perforation or abscess without bleeding CPT copyright 2015 [employer]. All rights reserved. The codes documented in this report are preliminary and upon regional director of finance review may be revised to meet current complianc e requirements. Attending Participation: MD Jean Claude Stanton, 04/01/2016 8:30:39 AM Number of Addenda: 0 Note Initiated On: 04/01/2016 8:03 AM Jean Claude Chauhan MD DIGESTIVE CARE Performing Organization Address City/State/ZIP Code Phon e Number [facility] [employer], [place] Surgical Path - Colonoscopy (04/01/2016 7:00 AM CDT) [facility] gist Method Time Signature Histology (NOTE) [facility] Final [facility] Patient Name: LOC QUINTANILLA Taken: 04/01/2016 Received: 04/01/2016 Reported: 04/02/2016 Physician(s): JEAN CLAUDE CHAUHAN ? Final Pathologic Diagnosis Colon, rectum polyps, polypectomy -- ?1. ??Tubular adenoma and hyperplastic polyp ?2. ??No high grade dysplasia seen *Electronically Signed Out By* ? Denice Becerril MD Procedures/Addenda Clinical History Screening Colon Gross Description The specimen is received in formalin and labeled with the pa tient's name. ??The specimen consists of six mtz-white irregular sof t tissue fragments averaging 0.2 cm. ??The specimen is filtered and e ntirely submitted in one cassette. ??js jds/04/01/2016 Microscopic Description Microscopic examination is performed. ?? kds/04/02/2016 Denice Becerril MD [facility] Department of Pathology [address] [place] [address] ??[id number] Specimen Anatomical Collection Method Collection Time Receive d Time (Source) Location / / Volume Laterality COLON STRUCTURE / 04/01/2016 7:00 AM 03/06 Unknown CDT 11:14 AM CDT Jean Claude Chauhan MD LAB_1 Performing Organization Address City/State/ZIP Code Phon e Number [id number] [phone] documented in this encounter Visit Diagnoses Diagnosis Screen for colon cancer - Primary Special screening for malignant neoplasm s, colon documented in this encounter Administered Medications Inactive Administered Medications - up to 3 most recent administrations Medication Order MAR Action Action Date Dose Rate Site fentaNYL (SUBLIMAZE) injection Given 04/01/2016 8:08 AM CDT 100 mcg 25-100 mcg 25-100 mcg, Intravenous, PRN WITH PROCEDURES, Sedation, Procedure, Starting on Wed04/01/16 at 0759, Until Wed04/01/16 at 1558, For 8 hours, Give as directed by provider under procedural sedation protocol. midazolam (VERSED) injection 0.5-2 mg Given 04/01/2016 8:08 AM CDT 2 mg 0.5-2 mg, Intravenous, PRN WITH PROCEDURES, Sedation, Starting on Wed04/01/16 at 0759, Until Wed04/01/16 at 1558, For 8 hours, Give as directed by provider under procedural sedation protocol. documented in this encounter Care Teams Field Services Analyst Relationship Specialty Start Date End Date Alisha Kimball MD PCP - General 07/08/[address] [place] [address] documented as of this encounter
--- OUTSIDE RECORDS SUMMARY | 2022-04-07 07:25 | XMS_ITS | Encounter Summary ---
:1955 Author Organization [facility] Address [address] [place] [address] Care Team Providers Name Role Phone Alisha Kimball MD Primary Care Provider Reason for Visit Reason Comments Future Appointments Encounter Details Date Type Department Care Team Description 01/28/2017 Telephone [facility] Tesha Maxwell, Future Appointments [address] [facility] [place] [address] [address] [facility] [phone] [place], [place] [address] (Wo rk) Social History Tobacco Use Types Packs/Day Years Used Date Smoking Tobacco: Never Smokeless Tobacco: Never Alcohol Use Standard Drinks/Week Comments No 0 (1 standard drink = 0.6 oz pure alcoho l) Sex Assigned at Date Recorded Not on file documented as of this encounter Nursing Notes Paula Escobar - 01/28/2017 4:09 PM CDT LM to r/s, provider leaving clinic. 01/28 4:07pm documented in this encounter Plan of Treatment Not on filedocumented as of this encounter Visit Diagnoses Not on filedocumented in this encounter Care Teams Cooking Chef Relationship Specialty Start Date End Date Alisha Kimball MD PCP - General 07/08/05 [address] [facility] [place] [place] [phone] documented as of this encounter
--- OUTSIDE RECORDS SUMMARY | 2022-04-07 07:25 | XMS_ITS | Encounter Summary ---
:1955 Author Organization [facility] Address [address] [address] Care Team Providers Name Role Phone Alisha Kimball MD Primary Care Provider Reason for Visit Reason Comments HTN MANAGEMENT AND EDUCATION Encounter Details Date Type Department Care Team Description 04/09/2016 Office Visit [facility] Tesha Maxwell, Essential hypertension [address] [facility] PharmD (Primary Dx) [place] [address] [address] [facility] [phone] [place], [place] [address] Social History Tobacco Use Types Packs/Day Years Used Date Smoking Tobacco: Never Smokeless Tobacco: Never Alcohol Use Standard Drinks/Week Comments No 0 (1 standard drink = 0.6 oz pure alcoho l) Sex Assigned at Date Recorded Not on file documented as of this encounter Last Filed Vital Signs Vital Sign Reading Time Taken Comments Blood Pressure 133/94 04/09/2016 7:49 AM CDT Pulse 76 04/09/2016 7:49 AM CDT Temperature - - Respiratory Rate - - Oxygen Saturation - - Inhaled Oxygen Concentration - - Weight - - Height - - Body Mass Index - - documented in this encounter Patient Instructions Patient InstructionsPeTesha wallace, PharmD - 04/09/2016 7:50 AM CDT 1) Reduce to amlodipine 5mg daily. 2) Start losartan 25mg 1 tab daily. 3) Have your potassium and kidney function rechecked in 2-4 weeks. 4) Your follow-up appointment is scheduled for , May 07 at 8:00am at the [facility]. Please call me or e-mail if you have questions. Thanks, Tesha Maxwell PharmD [facility] on Wednesday & Wednesday [facility] on & Wednesday documented in this encounter Progress Notes Tesha Maxwell PharmD - 04/09/2016 7:38 AM CDT S Loc Velasco is a 61 y.o. old female who was referred by [employer] for HTN management/education and diabetes management/education. Melia presents today for blood pressure recheck. At her last visit we increased amlodipine to 7.5mg daily. Previously 10mg daily caused lower leg edema. Only slight edema noted on current dosage. She has not checked her blood pressure at home. At this time she is only on amlodipine for blood pressure control. She was on lisinopril in the past, however this was not tolerated secondary to cough. Patient continues with regular walking and dietary improvements. She has been focusing on reducing sodium recently. Pt denies dizziness, headache, fatigue, chest pain/pressure, palpitations, cough , diarrhea, musclepain, bruising, bleeding and hypoglycemia Exercise: no change Diet:no change Medication optimization: Patient reports missing a dose [...] (HRC) ??? Hypercholesterolemia (HRC) ??? Heart palpitations ??? Adenomatous polyp of colon History Smoking status ??? Never Smoker Smokeless tobacco ??? Never Used ASPIRIN USE: Yes BP 138/98 mmHg Pulse 74 BP Readings from Last 2 Encounters: 04/09/16 133/94 04/01/16 119/77 HGB A1C (%) Date Value 03/06/2016 6.6* Lab Results Component Value Date/Time TSH, WITH REFLEX 1.465 10/30/2013 07:37 AM Estimated body mass index is 31.05 kg/(m^2) as calculated from the following: Height as of 12/09/15: 5' 4 (1.626 m). Weight as of 03/12/16: 181 lb (82.101 kg). CHOLESTEROL (mg/dl) Date Value 11/30/2015 143 [...] at goal. HgbA1C goal: <7%. Pt is at goal. 1. HTN and amlodipine. Indication - Additional Drug Therapy needed: synergistic/potentiating 2. HTN and losartan. Safety/screening - Lab monitoring needed. P 1) Patient will return to amlodipine 5mg daily and add losartan 25mg daily per cpa. 2) Potassium and kidney function levels to be rechecked in 2-4 weeks. Lab orders entered. 3) A copy of the After Visit Summary was provided to patient, details were reviewed by me and all questions were answered. 4) Follow-up appointment scheduled for May 07 at 8:00am. Updated [facility] med list and reviewed medications including indications with patient. Total time spent with patient 30 minutes. Tesha Maxwell PharmD Clinical Pharmacist Medication Therapy Management Program documented in this encounter Plan of Treatment Not on filedocumented as of this encounter Results Creatinine / GFR (05/04/2016 3:49 PM CDT) Analysis Performed At Patho logist Time Signature Creatinine 0.72 0.55 - [facility] 1.02 mg/dl LAB[facility]ATORIES GFR, Estimated >60 >60 [facility] ml/min/1.7 LAB[facility]ATORIES 3m2 GFR, Est., If >60 >60 [facility] Black ml/min/1.7 LABORATORIES 3m2 Specimen Anatomical Collection Method Collection Time Receive d Time (Source) Location / / Volume Laterality 05/04/2016 3:49 PM 6 3:50 CDT PM CDT Narrative [facility] - 05/04/2016 7:28 PM C DT Performed at [facility], [address] [place] [address] ??[phone] Alisha Kimball MD LAB_1 Performing Organization Address [facility] Phon e Number [facility] [phone] Potassium (05/04/2016 3:49 PM CDT) P athologist Signature Potassium 4.2 3.5 - 5.1 [facility] mmol/L Specimen Anatomical Collection Method Collection Time Receive d Time (Source) Location / / Volume Laterality 05/04/2016 3:49 PM 6 3:50 CDT PM CDT Narrative [facility] - 05/04/2016 7:28 PM C DT Performed at [facility], [address] [place] [address] ??[phone] Alisha Kimball MD LAB_1 Performing Organization Address City/[facility] Phon e Number [facility] [phone] documented in this encounter Visit Diagnoses Diagnosis Essential hypertension (HRC) - Primary Unspecified essential hypertension Essential hypertension (HRC) Unspecified essential hypertension documented in this encounter Care Teams Printed Circuit Boards Router Relationship Specialty Start Date End Date Alisha Kimball MD PCP - General 07/08/05 [address] [place] [address] documented as of this encounter
--- OUTSIDE RECORDS SUMMARY | 2022-04-07 07:25 | XMS_ITS | Encounter Summary ---
:1955 Author Organization [facility] Address [address], [place] [address] Care Team Providers Name Role Phone Alisha Kimball MD Primary Care Provider Reason for Visit Reason Comments PHARMACIST COUNSELING diabetes Encounter Details Date Type Department Care Team Description 02/10/2016 Pharmacy [facility] [place] on PHARMACIST COUNSELING Pharmacy [address] [facility] (diabetes) [address] [place], [place] [address] [phone] (Wo rk) Social History Tobacco Use Types Packs/Day Years Used Date Smoking Tobacco: Never Smokeless Tobacco: Never Alcohol Use Standard Drinks/Week Comments No 0 (1 standard drink = 0.6 oz pure alcoho l) Sex Assigned at Date Recorded Not on file documented as of this encounter Nursing Notes ALISON BECKER - 02/12/2016 3:59 PM CDT Medication-Related Problems Identified: No problem identified Pharmacist Action Items: No pharmacist action Additional Comments: picked up Time spent assisting patient (in minutes): < 5 Encounter can be closed. ALISON BECKER 02/12/2016, 3:59 PM Brenton Pickard [facility] - 02/10/2016 10:42 AM CDT Topic / Disease State: Diabetes: Clinic Pharmacy Diabetes Encounter Notes Loc Velasco was at [facility] to speak with the pharmacist about their diabetes. Optimal Diabetes Care results as follows: Guideline Goal Previous Result/Current Result A1c less than 8.0% HGB A1C (%) Date Value 11/30/2015 7.3* 07/27/2015 7.2* Blood Pressure 139/89 or lower BP Readings from Last 2 Encounters: 12/09/15 118/84 10/10/15 134/86 LDL 99 or lower LDL, CALC. (mg/dl) Date Value 11/30/2015 72 10/27/2014 87 Tobacco use Tobacco Free reports that she has never smoked. She has never used smokeless tobacco. Please create two Diabetes Report Cards by going to the Letters section, generating and printing twocopies of the Rx Diabetes Report Card ([id number]). One copy will be provided to the patient and the second copy will be used to complete Epic documentation after patient consultation occurs. Patient at Goal? Yes. Please document using .rphdoc after speaking with the patient. documented in this encounter Plan of Treatment Not on filedocumented as of this encounter Visit Diagnoses Not on filedocumented in this encounter Care Teams Battery Repairer Relationship Specialty Start Date End Date Alisha Kimball MD PCP - General 07/08/05 [address] [place] [address] documented as of this encounter
--- OUTSIDE RECORDS SUMMARY | 2022-04-07 07:25 | XMS_ITS | Encounter Summary ---
:1955 Author Organization [facility] Address [address], [place] [address] Care Team Providers Name Role Phone Alisha Kimball MD Primary Care Provider Reason for Visit Reason Comments MEDICATION THERAPY MANAGEMENT Encounter Details Date Type Department Care Team Description 06/18/2016 Office Visit [facility] Tesha Maxwell, Essential hypertension [address] [facility] PharmD (Primary Dx) [place] [address] [address] [facility] [phone] [place], [place] [address] Social History Tobacco Use Types Packs/Day Years Used Date Smoking Tobacco: Never Smokeless Tobacco: Never Alcohol Use Standard Drinks/Week Comments No 0 (1 standard drink = 0.6 oz pure alcoho l) Sex Assigned at Date Recorded Not on file documented as of this encounter Last Filed Vital Signs Vital Sign Reading Time Taken Comments Blood Pressure 123/86 06/18/2016 7:39 AM PRINTER OPERATOR Pulse 81 06/18/2016 7:39 AM PRINTER OPERATOR Temperature - - Respiratory Rate - - Oxygen Saturation - - Inhaled Oxygen Concentration - - Weight - - Height - - Body Mass Index - - documented in this encounter Patient Instructions Patient InstructionsPeltTesha smith PharmD - 06/18/2016 7:34 AM CST 1) Your blood pressure is in goal range today. Continue on amlodipine 5mg daily, [id number] daily and losartan 50mg daily. 2) Your follow-up visit is scheduled for , September 24 at 8:00am. Please call me or e-mail if you have questions. Thanks, Tesha Maxwell PharmD [facility] on Wednesday & Wednesday [facility] on & Wednesday TER OPERATOR documented in this encounter Progress Notes Tesha Maxwell PharmD - 06/18/2016 7:31 AM CST S Loc Velasco is a 61 y.o. old female who was referred by provider for HTN management/education and diabetes management/education. Melia presents today for blood pressure follow-up. She was started on hctz 25mg daily at her last visit. Patient noted when taken at night it caused leg pains, however moving it to morning dosing resolved this issue. Labs were checked earlier this week and show good tolerance of the diuretic. Patient has not checked blood pressure at home. She notes a 5 pound weight loss in the last few weeks. At this time she is taking amlodipine 5mg daily, hctz 25mg daily and losartan 50mg daily. Pt denies dizziness, headache, chest pain/pressure, palpitations, cramps, edema, bruising and bleeding Exercise: no change Diet:no change Medication optimization: Patient reports missing a dose of medication in the past week: no O Adherence: Ability to assess medication adherence objectively: Able. According to VMAT, patient adherence is: Good - > 80% adherent to all chronic medications. ALLERGIES: Allergies Allergen Reactions ??? Sulfa Antibiotics Redness and Swelling PROBLEM LIST: Patient Active [...] visit. BP Readings from Last 2 Encounters: 06/04/16 122/95 05/07/16 131/99 HGB A1C (%) Date Value 03/06/2016 6.6* [...] Value 12/16/2012 0.9 CREATININE (mg/dl) Date Value 06/15/2016 0.92 GFR, ESTIMATED (ml/min/1.73m2) Date Value 06/15/2016 >60 GFR, EST., IF BLACK (ml/min/1.73m2) Date Value 06/15/2016 >60 POTASSIUM (mmol/L) Date Value 06/15/2016 4.2 SODIUM (mmol/L) Date Value 11/30/2015 143 A BP goal :<140/90. Pt is at goal. LDL goal: moderate intensity statin. Pt is at goal. HgbA1C goal: <7%. Pt is at goal. No new DTPs identified P 1) Continue current medication regimen. 2) A copy of the After Visit Summary was provided to patient, details were reviewed by me and all questions were answered. 3) Follow-up appointment scheduled for September 24 at 8:00am. Updated eGood med list and reviewed medications including indications with patient. Total time spent with patient 15 minutes. Tesha Maxwell PharmD Clinical Pharmacist Medication Therapy Management Program TER OPERATOR documented in this encounter Plan of Treatment Not on filedocumented as of this encounter Visit Diagnoses Diagnosis Essential hypertension (HRC) - Primary Unspecified essential hypertension documented in this encounter Care Teams Senior Staff Accountant Relationship Specialty Start Date End Date Alisha Kimball MD PCP - General 07/08/[address] [place] [address] documented as of this encounter
--- OUTSIDE RECORDS SUMMARY | 2022-04-07 07:25 | XMS_ITS | Encounter Summary ---
:1955 Author Organization [facility] Address [address] [place] [address] Care Team Providers Name Role Phone Alisha Kimball MD Primary Care Provider Encounter Details Date Type Department Care Team Description 06/15/2016 Lab Visit [facility] Essential hypertension [address] [place], [place] [address] Social History Tobacco Use Types Packs/Day Years Used Date Smoking Tobacco: Never Smokeless Tobacco: Never Alcohol Use Standard Drinks/Week Comments No 0 (1 standard drink = 0.6 oz pure alcoho l) Sex Assigned at Date Recorded Not on file documented as of this encounter Progress Notes Tesha Maxwell PharmD - 06/17/2016 11:02 AM CHILD ABUSE WORKER Quick Note: Normal labs. Will discuss at clinic visit 06/18/16. Tesha Maxwell PharmD 06/17/2016, 11:02 AM D ABUSE WORKER documented in this encounter Plan of Treatment Not on filedocumented as of this encounter Procedures Procedure Name Priority Date/Time Associated Diagnosis Comme nts CREATININE / GFR Routine 06/15/2016 4:28 PM Essential hyperten bobbi Results for this CHILD ABUSE WORKER procedure are i n the results section. POTASSIUM Routine 06/15/2016 4:28 PM Essential hypertension Results for this CHILD ABUSE WORKER procedure are i n the results section. documented in this encounter Results Creatinine / GFR (06/15/2016 4:28 PM CHILD ABUSE WORKER) Analysis Performed At Patho logist Time Signature Creatinine 0.92 0.55 - [facility] 1.02 mg/dl LAB[facility]ATORIES GFR, Estimated >60 >60 [facility] ml/min/1.7 LAB[facility]ATORIES 3m2 GFR, Est., If >60 >60 [facility] Black ml/min/1.7 LABORATORIES 3m2 Specimen Anatomical Collection Method Collection Time Receive d Time (Source) Location / / Volume Laterality 06/15/2016 4:28 PM 6 4:29 CHILD ABUSE WORKER PM CHILD ABUSE WORKER Narrative [facility] - 06/15/2016 6:[address] Performed at [facility], [address] [place] [address] ??[phone] Alisha Kimball MD LAB_1 Performing Organization Address City/[facility] Phon e Number [facility] [phone] Potassium (06/15/2016 4:28 PM CHILD ABUSE WORKER) P athologist Signature Potassium 4.2 3.5 - 5.1 [facility] mmol/L Specimen Anatomical Collection Method Collection Time Receive d Time (Source) Location / / Volume Laterality 06/15/2016 4:28 PM 6 4:29 CHILD ABUSE WORKER PM CHILD ABUSE WORKER Narrative [facility] - 06/15/2016 6:[address] Performed at [facility], [address] [place] [address] ??[phone] Alisha Kimball MD LAB_1 Performing Organization Address City/[facility] Phon e Number [facility] [phone] documented in this encounter Visit Diagnoses Diagnosis Essential hypertension (HRC) Unspecified essential hypertension documented in this encounter Care Teams Produce Inspector Relationship Specialty Start Date End Date Alisha Kimball MD PCP - General 07/08/05 [address] [place] [address] documented as of this encounter
--- OUTSIDE RECORDS SUMMARY | 2022-04-07 07:25 | XMS_ITS | Encounter Summary ---
:1955 Author Organization [facility] Address [address] [place] [address] Care Team Providers Name Role Phone Alisha Kimball MD Primary Care Provider Reason for Visit Reason Comments Disease Registry diabetes Encounter Details Date Type Department Care Team Description 05/22/2016 Telephone [facility] Alisha Kimball MD Disease Registry Practice [address] (diabetes) [address] [place] [address] [place], [place] [id number] [phone] Social History Tobacco Use Types Packs/Day Years Used Date Smoking Tobacco: Never Smokeless Tobacco: Never Alcohol Use Standard Drinks/Week Comments No 0 (1 standard drink = 0.6 oz pure alcoho l) Sex Assigned at Date Recorded Not on file documented as of this encounter Nursing Notes Tara Ricketts - 05/29/2016 12:11 PM CST Patient scheduled for 06/04/16 OR MANUFACTURING TEST ENGINEER Tara Ricketts - 05/22/2016 2:25 PM CST [facility] to schedule. OR MANUFACTURING TEST ENGINEER Francesca Cho CMA - 05/22/2016 2:01 PM CST This patient was identified from the Disease Registry as being out of goal or almost out of goal forone or more of their Optimal Care Measures. Diabetes - Patient is due for Blood pressure check To help the patient achieve their health goals, we recommend the following: ?? Nurse BP Check Francesca Cho 05/22/2016, 2:01 PM OR MANUFACTURING TEST ENGINEER documented in this encounter Plan of Treatment Not on filedocumented as of this encounter Visit Diagnoses Not on filedocumented in this encounter Care Teams Roll Shop Supervisor Relationship Specialty Start Date End Date Alisha Kimball MD PCP - General 07/08/05 [address] [place] [address] documented as of this encounter
--- OUTSIDE RECORDS SUMMARY | 2022-04-07 07:25 | XMS_ITS | Encounter Summary ---
:1955 Author Organization [employer] Address [address] [place] [address] Care Team Providers Name Role Phone Alisha Kimball MD Primary Care Provider Reason for Visit Reason Comments Routine Eye Exam RAMIN 01/17 . Patient s tates no visual changes. Patient states she uses otc readers. Patient uses systane PRN Diabetic Exam, Yearly BS- controlled with metformi n. Last BS was 135 taken a couple days ago. A1C- 7.2 11/2016. D Mx7yrs? 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 [address] [address] [facility] [phone] [place], [place] [id number] Social History Tobacco Use Types Packs/Day Years Used Date Smoking Tobacco: Never Smokeless Tobacco: Never Alcohol Use Standard Drinks/Week Comments No 0 (1 standard drink = 0.6 oz pure alcoho l) Sex Assigned at Date Recorded Not on file documented as of this encounter Patient Instructions Patient InstructionsEric Keller, OD - 01/18/2017 11:00 AM CDT Very mild diabetic changes in your right retina. Just continue to work on your blood sugar and bloodpressure and this will heal itself. documented in this encounter Progress Notes rEic Keller, OD - 01/18/2017 3:44 PM CDT HPI Chief Complaint Patient presents with ??? Routine Eye Exam RAMIN 01/17 . Patient states no visual changes. Patient states she uses otc readers. Patient uses systane PRN ??? Diabetic Exam, Yearly BS- controlled with metformin. Last BS was 135 taken a couple days ago. A1C- 7.2 11/2016. [id number]? Routine Eye Exam Loc Velasco is a 61 y.o. year old female here for a routine eye exam. Diabetes is Type II (adult) and is managed by oral meds. Hgb A1c (%) Date Value 12/01/2016 7.2 (H) 03/06/2016 6.6 (H) 11/30/2015 7.3 (H) Assessment 1) Mild NPDR OD 2) Presbyopia OU Plan Educated patient that he or she can significantly lower the risk of vision loss by maintaining strict control of blood sugar and blood pressure and visiting eye doctor regularly. Return to clinic in 1 year(s) Eric Keller, RAJEEV documented in this encounter Plan of Treatment Not on filedocumented as of this encounter Visit Diagnoses Diagnosis Type 2 diabetes mellitus with right eye affected by mild nonproliferative retinopathy without macular edema, without long-term current use of insulin (HRC) - Primary Presbyopia documented in this encounter Care Teams Literary Writer Relationship Specialty Start Date End Date Ailsha Kimball MD PCP - General 07/08/05 [address] [place] [address] documented as of this encounter
--- OUTSIDE RECORDS SUMMARY | 2022-04-07 07:25 | XMS_ITS | Encounter Summary ---
:1955 [facility] Address [address] [place] [address] Care Team Providers Name Role Phone Alisha Kimball MD Primary Care Provider Reason for Referral Procedure/Equipment (Routine) - Incomplete Specialty Diagnoses / Procedures Referred By Contact Refer red To Contact Diagnoses Left foot pain Izaiah Rouse DPM Procedures XR Foot Lt AP/Lat/MO/LO 4Vws [address] [place] [address] Referral ID Status Reason Start Date Expiration Date Visits V isits Requested Authorized [id number] Incomplete 01/22/2017 04/23/2018 1 1 Reason for Visit Consult/Transfer Care (Routine) - Closed Specialty Diagnoses / Procedures Referred By Contact Refer red To Contact Diagnoses Alisha Hamilton MD [address] [place] [address] Referral ID Status Reason Start Date Expiration Date Visits Requ ested Visits Authorized [id number] Closed 12/07/2016 03/08/2018 1 1 Encounter Details Date Type Department Care Team Description 01/22/2017 Office Visit [facility] [place], Ana fo ot pain (Primary Dx); [facility] Izaiah Barker DPM Hallux valgus, left; 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 [id number] Social History Tobacco Use Types Packs/Day Years Used Date Smoking Tobacco: Never Smokeless Tobacco: Never Alcohol Use Standard Drinks/Week Comments No 0 (1 standard drink = 0.6 oz pure alcoho l) Sex Assigned at Date Recorded Not on file documented as of this encounter Patient Instructions Patient InstructionsDorie Frias MA - 01/22/2017 1:00 PM CDT Thank you for choosing [facility]. If you have any questions or concerns, please contact us at [phone]. For felt metatarsal pads or foam toe separators: www.[employer] www.[employer] Dr. Osullivan's color[facility] medical centerBalconyTV catalog www.[employer] Ped[employer]Fix www.[employer]Store.Corvalius Bunion (hallux abducto valgus) A bunion is caused by muscle imbalance. The great toe is pulled toward the smaller toes. The metatarsal head is pushed outward creating a lump on the side of your foot. Imbalance is the result of foot structure and instability. Bunions do not improve with time. They usually enlarge, however this is a fairly slow process. Shoesdo not necessarily cause bunions, however, they can hasten development and definitely cause bunions to hurt. Bunions often run in families. We inherit a certain foot structure, which may be predisposed to bunion development. Bunion pain is likely a combination of shoes rubbing on the bump, nerve irritation, compression between the toes, joint misalignment, arthritis and altered gait. Most bunion pain can be improved simply by wearing compatible shoes. People with bunions cannot choose footwear simply because they like the style. Your bunion should determine which shoes are to be worn. Wide shoes with nonirritating seams,soft leather and a square toe box are most compatible with a bunion. Shoes should fit appropriately right out of the box but may need to be professionally stretched and modified to accommodate the bump. Heels, dress shoes and shoes with pointed toes will not be comfortable. Shoe inserts or orthotics will often times help with bunion pain, however inserts make shoe fit morechallenging. Pads placed over the bunion can also help relieve the pain. Injection may help with nerve irritation. Bunion surgery involves cutting and repositioning the bones surrounding the bunion. Pins and screws are used to hold the bones in place during the healing process. The goal of bunion surgery is to reduce the size of the bunion bump. Realignment of the toe and joint is attempted. Some first toes cannotbe forced back into normal alignment even with surgery. Surgery is helpful in most cases but does not necessarily create a normal foot. Healing after surgery requires about six weeks of protection. This allows the bone to heal. Maximum recovery takes about one year. The scar tissue and joint structures require this amount of time to finish the healing process. Expect stiffness, swelling and numbness during that time frame. Bunion surgery does involve side effects. Some side effects are predictable and others are less common but do occur. A scar will be visible and could be irritated by shoes. The shoe may rub on the screw or internal pin requiring surgical removal of these fixation devices. The screw and pin would likely be left inplace for a full year. The first toe may loose motion after bunion surgery. The amount of stiffness is variable. Some people never regain normal motion of the first toe. This is due to scar tissue inherent to any surgery. The first toe may drift toward the second toe or away from the second toe. Spreading of the first and second toes is a rare occurrence after bunion surgery. This can be quite bothers ome and would need to be surgically repaired. Toe drift toward the second toe could result in a recurrent bunion and revision surgery. Joint fusion is one option to correct an unstable, drifting toe. This procedure straightens the toe, however, no motion remains. Fusion may be necessary to correct complications of bunion surgery or as the original procedure in severe cases. All surgical procedures involve risk of infection, numbness, pain, delayed healing, osteotomy dislocation, blood clots, continued foot pain, etc. Bunion surgery is quite complex and should not be takenlightly. Any skin incision can lead to infection. Deep infection might involve the bone and thus repeat surgery and six weeks of IV antibiotics. Scar tissue can cause nerve pain or numbness. This is generally temporary but can be permanent. We do not have treatments that cure nerve problems. Second toe pain could be related to altered mechanics and pressure transferred to the second toe. Most feet with bunions have pre-existing second toe problems. Delayed bone healing would lengthen the healing time. Some bones simply do not heal. This requires repeat surgery, electronic bone stimulation and/or extended protection. Smokers have an approximate 20% chance of poor bone healing. This is double that of a non-sm oker. The bone cut may displace. This may need to be repaired with a second operation. Displacement can cause joint malalignment. Immobility after surgery can cause blood clots in the legs and lungs. This could result in . Foot pain is complex. Most feet hurt for more than one reason. Fixing the bunion would not necessarily create a pain free foot. Appropriate shoes, healthy body weight, avoidance of bare foot walking and moderation of activity will always be necessary to enjoy foot comfort. Your bunion may involve arthritis, which is incurable even with surgery. Long standing bunions often involve chronic irritation to the surrounding nerves. Nerve pain may not resolve even with reducing the bunion bump since permanent nerve damage may be present Bunion surgery is nevertheless quite successful. Most surgical patients are pleased with their foot following bunion surgery. Many of the issues described above can be controlled by taking proper care of your foot during the healing process. Cosmetic bunion surgery is discouraged for the reasons listed above. A bunion that is comfortable when wearing appropriate shoes should simply be treated with appropriate shoes. Your surgeon would be happy to fully describe any of the above issues. You should pursue a full understanding of the operation,recovery process and any potential problems that could develop. For more information on your condition, please visit these accredited websites: [employer] http://www.acfas.org [employer] http://www.apma.org/ BUNION What is a bunion? For the purposes of this article, I am going to use the term bunion to mean three different problems; soft tissue enlargement, hallux abducto valgus and metatarsus primus varus. All three of these problems usually occur together and are what most people think of as a typical bunion. The true definition of the word bunion, however, is an enlargement on the side of the foot near the base of the bigtoe (hallux). The enlargement is made up of a bursa (fluid filled sac) under the skin. So, technically, the term bunion is just the soft tissue enlargement that occurs, but in this article the term bunion will mean; soft tissue enlargement, hallux abducto valgus and metatarsus primus varus. All three of these things together are what people usually think of as a bunion. The soft tissue enlargement usually occurs because of two structural (bony) deformities called hallux abducto valgus (HAV) and metatarsus primus varus (MPV). HAV is a fancy way of saying that your big toe (hallux) is rotated and leaning toward your other toes. Sometimes the deformity becomes really severe and the big toe can either sit on top or underneath your second toe. Metatarsus primus varus involves the first metatarsal being rotated and leaning too far toward your other foot. The hard bone you feel when you touch the bunion (the side of your big toe joint) is the head of the first metatarsalthat has shifted out of position. Bunions are much more common in women than in men. Some suggest this is due to the poor fitting shoes women wear. Causes of Bunions Are shoes to blame? Yes and no. Research studies have shown that in countries where people do not wear shoes there are not as many bunions, but bunions are still found in some non-shoe wearing people. In countries where people do where shoes, there is a greater number of people who have bunions, but not everyone who wears shoes gets bunions. That means there must be other factors besides shoes that contribute to bunions. Studies have shown that 63-68% of people who have bunions have a family history of bunions. So, heredity definitely plays a part. You do not inherit the bunions, but you inherit the foot type that may lead to bunions. Certain foot types cause the bones to change position and go out of alignment. This in turn allows the muscles and tendons to take advantage over other muscles and tendons and over timethese changes may lead to bunions. Take a look at your grandparents', parents', aunts' or uncles', and sisters' and brothers' feet. There may be bunions in your family that you were not aware of. Proposed causes of bunions: ?? Shoes (especially high heeled shoes) ?? Flat feet (pes planus) and pronation (foot rolls in) ?? Metatarsus primus varus (first metatarsal bone rotates) ?? Short or long first metatarsal bone ?? Round first metatarsal head ?? Hypermobility (excess motion) of the metatarsocuneiform joint ?? Amputation of the second toe ?? Neuromuscular disorders (cerebral palsy, poliomyelitis) ?? Rheumatoid arthritis ?? Contracture (shortening) of the achilles tendon ?? Ruptured posterior tibialis tendon ?? Buck-Danlos syndrome (hyperelasticity) Signs & Symptoms of Bunions Bunions are usually termed mild, moderate or severe. Just because you have a bunion does not mean you have to have pain. There are some people with very severe bunions and no pain and people with mild bunions and a lot of pain. ?? Pain on the inside of your foot at the big toe joint (1st MTPJ) ?? Swelling on the inside of your foot at the big toe joint ?? Redness on the inside of your foot at the big toe joint ?? Numbness or burning in the big toe (hallux) ?? Decreased motion at the big toe joint ?? Painful bursa (fluid-filled sac) on the inside of your foot at the big toe joint ?? Pain while wearing shoes - especially shoes too narrow or with high heels ?? Pain during activities ?? Maurice in between the big toe and second toe ?? Callous formation on the side or bottom of the big toe or big toe joint ?? Callous under the second toe joint (2nd MTPJ) ?? Pain in the second toe joint Diagnosis/Tests (Exam) Your foot doctor (popped corn oven attendant) will ask you questions about the symptoms you are having while examining your foot. You will also probably be asked to stand and walk barefoot to further assess your foot function. The presence of a bunion is usually obvious, but sometimes there is more going on that ariel bunion, so your popped corn oven attendant will usually take an x-ray. The popped corn oven attendant will measure angles between the bones to help determine the stage of the bunion. Bunions are usually termed mild, moderate or severe. It is considered normal if your big toe bends up to 15 degrees toward your second toe. If the angle is more than 15 degrees, then it is considered hallux valgus. Bunions can start out mild and progress to severe. There is no clear-cut way to predict if a bunion will get worse. The severity of the bunion and the symptoms you have will help determine what treatment is recommended for you. Treatment for Bunions Conservative (non-surgical) treatment will not make the bunion go away, but it will hopefully decrease the signs and symptoms you have and help you get rid of the pain and get you back to your activities. ?? Wider shoes ?? Extra depth shoes ?? Stretch shoes (where bunion is) ?? Cut an x or cross in the shoe (where bunion is) ?? Ice ?? Padding, splints, toe spacers ?? NSAIDs ?? Arch supports ?? Custom orthoses (orthotics) ?? Change activities ?? Physical therapy Surgical treatment for bunions is sometimes needed. If you are limited by pain, cannot fit in shoes comfortably and are not able to do your daily activities then surgery may be a good option for you. There are many different surgical procedures to repair bunions. Your foot doctor (popped corn oven attendant) will review your foot exam findings, your x-rays, your age, your health, your lifestyle, your physical activity level and discuss with you which procedure he or she would recommend. Surgical procedures for bunions range from soft tissue repair to cutting and realigning the bones. It is not recommended that youhave bunion surgery for cosmetic reasons (you do not like how your foot looks) or because you want to fit in a certain pair of shoes. There is the risk that even after surgery, the bunion will reoccur 9-10% of the time. Prevention of Bunions ?? Do not wear high heels if there is a family history of bunions ?? Wear shoes that have enough width and depth in the toe box ?? Use a motion control arch support if you over-pronate (foot rolls in) For more information on your condition, please visit these accredited websites: [employer] http://www.acfas.org [employer] http://www.apma.org/ documented in this encounter Progress Notes Izaiah Rouse, LAURA - 01/22/2017 1:00 PM CDT Subjective: Loc Velasco is a 61 y.o. diabetic (on oral meds) female who presents for initial evaluation Chief complaint: Left foot bunion Preferred name: Melia Blood sugar this a.m.: didn't take today Accompanied by: unaccompanied. 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 Negative review of systems: fever, chills, joint stiffness, limping, heartburn, rash, open wound, numbness, weakness, blood in stool, chest pain with activity, leg pain when walking, shortness of breath with activity, chronic cough, easy bleeding/bruising, excessive thirst, fatigue, depression, anxiety, swelling of ankles, back pain, painful urination and joint or muscle pain Personal medical history: diabetes and high blood pressure Family medical history: diabetes, osteoporosis and heart disease Other pertinent history: n/a Specific questions or requests from the provider? Patient is her for an evaluation and treatment options Did you have X-rays taken today? yes Exam General: No apparent distress, relaxed comfortable. Pt is cooperative with history and exam. Vitals are reviewed from the nursing note. Vascular: Pedal pulses are palpable. There is adequate capillary fill to digits. Neuro: Gross touch is intact to the digits. There is no pain with percussion of the 1st proper dorsal digital nerve. Derm: Skin is warm to the touch. The skin overlying the dorsal medial first metatarsal head is red and irritated. MS: Patient has a moderate hallux valgus deformity. There is tenderness with palpation over the medial first metatarsal head. There is no first metatarsal cuneiform joint hypermobility. There is no first metatarsal pharyngeal joint crepitus. The deformity is not fully reducible. HEENT: Hearing is intact to spoken word. No evidence of visual impairment that would prevent caring for themselves. Lymph: No evidence of bruising or lymphedema Psych: Patient is appropriate in their interactions. They appear motivated to improve health. Radiographs: I took radiographs and I reviewed them independently with the patient in clinic. They demonstrate an increased first intermetatarsal angle. There is an increased hallux valgus angle. Thereis uncovering of the fibular sesamoid. Patient also has significant metatarsus adductus Assessment: Hallux valgus on the left complicated by metatarsus adductus Plan: We discussed conservative measures for this. These would include icing, anti-inflammatories, activity modification, shoe gear modification including wider shoes, softer shoes, or having shoes stretched. We orthotics could be helpful, however, they can also take it more room in her shoe and causeincreased pain. Surgical options were also discussed. This patient would likely need a midfoot arthrodesis with cheilectomy performed distally. We discussed how the procedure is performed. We discussed the fact that this is a same-day surgical procedure. Patient would be strictly nonweightbearing for six weeks followed by four weeks in a [employer] . They would need to be out of work for 2-6 weeks. Sutures would be removed at 10-14 days. Risks and benefits were discussed. Risks of the surgical procedure include infection, numbness, nerve irritation, painful scar, delayed or nonunion, delayed wound healing, under correction of the deformity, overcorrection of the deformity resulting in hallux varus, recurrence of the deformity, potential need for future surgery, potential for deep vein thrombosis or pulmonary embolism, incomplete relief of pain, possible development of a chronic pain syndrome. We also discussed risk of DVT following surgery. For now the patient wishes to proceed with conservative care with spacers and padding. He will call if she is interested in surgical intervention. Izaiah Rouse DPM documented in this encounter Plan of Treatment Not on filedocumented as of this encounter Results XR Foot Lt AP/Lat/MO/LO 4Vws (01/22/2017 12:31 PM CDT) Anatomical Region Laterality Modality Lower Extremity, Foot, Foot & Ankle Comp uted Radiography Specimen (Source) Anatomical Collection Method Collection Time Re ceived Time Location / / Volume Laterality 01/22/2017 12:31 PM CDT Narrative 01/22/2017 7:15 PM CDT XR FOOT LT AP/LAT/MO/LO 4VWS 01/22/2017 12:31 PM INDICATION: Left foot pain. ? COMPARISON: 04/28/2010 FINDINGS: Moderate hallux valgus deformi ty is progressed since 2009 with increased valgus angulation and hypertro phic changes of the first MTP joint. Second through fourth hammertoe d eformity. Pes planus. Small plantar calcaneal spur. Procedure Note Travis Pollard MD - 01/22/2017For matting of this note might be different from the original. XR FOOT LT AP/LAT/MO/LO 4VWS 01/22/2017 12:31 PM INDICATION: Left foot pain. COMPARISON: 04/28/2010 FINDINGS: Moderate hallux valgus deformi ty is progressed since 2009 with increased valgus angulation and hypertro phic changes of the first MTP joint. Second through fourth hammertoe d eformity. Pes planus. Small plantar calcaneal spur. Izaiah Rouse DPM RAD GD documented in this encounter Visit Diagnoses Diagnosis Left foot pain - Primary Pain in limb Hallux valgus, left Metatarsus adductus Congenital metatarsus varus Left foot pain Pain in limb documented in this encounter Care Teams Museum Guide Relationship Specialty Start Date End Date Alisha Kimball MD PCP - General 07/08/05 [address] [place] [address] documented as of this encounter
--- OUTSIDE RECORDS SUMMARY | 2022-04-07 07:25 | XMS_ITS | Encounter Summary ---
:1955 Author Organization [facility] Address [address] [place] [address] Care Team Providers Name Role Phone Alisha Kimball MD Primary Care Provider Reason for Visit Reason Comments MEDICATION THERAPY MANAGEMENT Encounter Details Date Type Department Care Team Description 10/22/2016 Office Visit [facility] Tesha Maxwell, Essential hypertension (Prim levy Dx); [address] [facility] PharmD Diabetes mellitus, type 2 (HRC); [place], [place] [address] Hypercholeste rolemia [address] [facility] [phone] [place], [place] [id number] Social History Tobacco Use Types Packs/Day Years Used Date Smoking Tobacco: Never Smokeless Tobacco: Never Alcohol Use Standard Drinks/Week Comments No 0 (1 standard drink = 0.6 oz pure alcoho l) Sex Assigned at Date Recorded Not on file documented as of this encounter Last Filed Vital Signs Vital Sign Reading Time Taken Comments Blood Pressure 119/85 10/22/2016 7:33 AM CDT Pulse 77 10/22/2016 7:33 AM CDT Temperature - - Respiratory Rate - - Oxygen Saturation - - Inhaled Oxygen Concentration - - Weight - - Height - - Body Mass Index - - documented in this encounter Patient Instructions Patient InstructionsPeTesha wallace PharmD - 10/22/2016 7:30 AM CDT 1) Have labs prior to seeing Alisha Kimball MD. 2) Continue on all current medications. You are meeting diabetes, cholesterol and blood pressure goals. 3) Your follow-up is scheduled for April 22 at 8:00am. Please call me or e-mail if you have questions. Thanks, Tesha Maxwell PharmD [facility] on Wednesday & Wednesday [facility] on & Wednesday documented in this encounter Progress Notes Tesha Maxwell PharmD - 10/22/2016 7:22 AM CDT Subjective Loc Velasco is a 61 y.o. old female is here for 6 month follow-up. She has been doing well. Patient is disappointed she lost weight, but gained it back over the winter. She has been walking now with the warmer weather. Patient checked blood pressure outside of clinic a few times and levels were ingoal range. Blood sugar continue to be in goal, however she is only checking once daily for the mostpart. She is scheduled for her annual check up with Alisha Kimball MD in December at which time she will have foot exam, otherwise all HM are up to date. No changes in medication regimen since our last visit. Patient continues to tolerate all without concern. Adherence: # of missed doses in the past week: 0 Pt denies dizziness, headache, fatigue, chest pain/pressure, palpitations, cough , heartburn/reflux,diarrhea, muscle pain, edema, bruising, bleeding and hypoglycemia. Objective Adherence: Ability to assess medication adherence objectively: Able. According to VMAT, patient adherence is: Good - > 80% adherent to all chronic medications. BP 119/85 mmHg Pulse 77 BP Readings from Last 2 Encounters: 06/18/16 123/86 06/04/16 122/95 HGB A1C (%) Date Value 03/06/2016 6.6* [...] 4.2 SODIUM (mmol/L) Date Value 11/30/2015 143 10-year ASCVD Risk Score: CVWizard Summary:Risk for a heart attack or stroke in the next 10 years is8.44% (using the ACC/AHA ASCVD risk score) Assessment BP goal: <140/90. Pt is at goal. LDL goal: moderate intensity statin. Pt is at goal. HgbA1C goal: <8%. Pt is at goal. 1. Diabetes and metformin. Effectiveness - Lab monitoring needed Status: Resolved Plan 1) Patient will have labs drawn 1 week prior to PCP visit. 2) BP in goal today. No change to medications. 3) A copy of the After Visit Summary was provided to patient, details were reviewed by me and all questions were answered. 4) Follow-up with me scheduled for , April 22 at 8:00am or sooner if questions or concerns arise. Updated Normal med list and reviewed medications including indications [...] mention of complication, not stated as uncontrolled Hypercholesterolemia Pure hypercholesterolemia documented in this encounter Care Teams Journey Lineman Relationship Specialty Start Date End Date Alisha Kimball MD PCP - General 07/08/05 [address] [place] [address] documented as of this encounter
--- OUTSIDE RECORDS SUMMARY | 2022-04-07 07:25 | XMS_ITS | Encounter Summary ---
:1955 Author Organization [facility] Address [address] [place] [address] Care Team Providers Name Role Phone Carroll Kimball MD Primary Care Provider Encounter Details Date Type Department Care Team Description 03/06/2016 Lab Visit [facility] Diabetes mellitus, type 2 [address] [place], [place] [id number] Social History Tobacco Use Types Packs/Day Years Used Date Smoking Tobacco: Never Smokeless Tobacco: Never Alcohol Use Standard Drinks/Week Comments No 0 (1 standard drink = 0.6 oz pure alcoho l) Sex Assigned at Date Recorded Not on file documented as of this encounter Progress Notes Carroll Kimball MD - 03/10/2016 8:13 AM CDT Addended by: CARROLL KIMBALL on: 03/10/2016 08:13 AM Modules accepted: Orders documented in this encounter Plan of Treatment Not on filedocumented as of this encounter Procedures Procedure Name Priority Date/Time Associated Diagnosis Comme nts HGB A1C Routine 03/06/2016 7:31 AM Diabetes mellitus, Res ults for this CDT type 2 ([facility]) procedure are i n the results section . documented in this encounter Results (ABNORMAL) HGB A1C (Glycated)- future, expected in 12 weeks (03/06/2016 7:31 AM CDT) P athologist Signature Hgb A1c 6.6 (H) 4.3 - 5.6 [facility] % [...] Time (Source) Location / / Volume Laterality 03/06/2016 7:31 AM 6 7:32 CDT AM CDT Narrative [facility] - 03/06/2016 12:43 PM CDT Performed at [facility], [address] [place] [address] ??[phone] Carroll Kimball MD LAB_1 Performing Organization Address City/State/ZIP Code Phon e Number [facility] [phone] documented in this encounter Visit Diagnoses Diagnosis Diabetes mellitus, type 2 (HRC) Type II or unspecified type diabetes dinora litus without mention of complication, not stated as uncontrolled documented in this encounter Care Teams Circulation Librarian Relationship Specialty Start Date End Date Carroll Kimball MD PCP - General 07/08/05 [address] [place] [address] documented as of this encounter
--- OUTSIDE RECORDS SUMMARY | 2022-04-07 07:25 | XMS_ITS | Encounter Summary ---
:1955 Author Organization [facility] Address [address] [place] [address] Care Team Providers Name Role Phone Alisha Kimball MD Primary Care Provider Encounter Details Date Type Department Care Team Description 11/16/2016 Refill Order [facility] Alisha Kimball MD [address] [facility]. [address] [place] [address] [place] [address] (Wo rk) Social History Tobacco Use Types Packs/Day Years Used Date Smoking Tobacco: Never Smokeless Tobacco: Never Alcohol Use Standard Drinks/Week Comments No 0 (1 standard drink = 0.6 oz pure alcoho l) Sex Assigned at Date Recorded Not on file documented as of this encounter Plan of Treatment Not on filedocumented as of this encounter Results Sodium (12/01/2016 7:14 AM CDT) athologist Signature Sodium 140 136 - 145 [facility] mmol/L Specimen Anatomical Collection Method Collection Time Receive d Time (Source) Location / / Volume Laterality 12/01/2016 7:14 AM 7 7:16 CDT AM CDT Narrative [facility] - 12/01/2016 1:01 PM C DT Performed at [facility], [address] [place] [address] ??[phone] Alisha Kimball MD LAB_1 Performing Organization Address City/State/ZIP Code Phon e Number [facility] [phone] documented in this encounter Visit Diagnoses Diagnosis Encounter for long-term (current) use of medications - Primary Encounter for long-term (current) use of other medications Encounter for long-term (current) use of medications Encounter for long-term (current) use of other medications Diabetes mellitus, type 2 (HRC) Type II or unspecified type diabetes dinora litus without mention of complication, not stated as uncontrolled Hypercholesterolemia Pure hypercholesterolemia Essential hypertension (HRC) Unspecified essential hypertension Screening for thyroid disorder documented in this encounter Care Teams Cross Tie Cutter Relationship Specialty Start Date End Date Alisha Kimball MD PCP - General 07/08/05 [address] [place] [address] documented as of this encounter
--- OUTSIDE RECORDS SUMMARY | 2022-04-07 07:25 | XMS_ITS | Encounter Summary ---
:1955 Author Organization [facility] Address [address] [place] [address] Care Team Providers Name Role Phone Alisha Kimball MD Primary Care Provider Reason for Visit Procedure/Equipment (Routine) - Incomplete Specialty Diagnoses / Procedures Referred By Contact Refer red To Contact Diagnoses Left foot pain Izaiah Rouse, DPM Procedures XR Foot Lt AP/Lat/MO/LO 4Vws [address] [place] [address] Referral ID Status Reason Start Date Expiration Date Visits V isits Requested Authorized [id number] Incomplete 01/22/2017 04/23/2018 1 1 Encounter Details Date Type Department Care Team Description 01/22/2017 [facility] Specialty Garry Rouse R, Left foot pain Center [address] Radiology DPM [address] [place] [address] [place] [address] [phone] (Wo rk) Social History Tobacco Use Types [...] Name Priority Date/Time Associated Diagnosis Comme nts XR FOOT LT Routine 01/22/2017 12:31 PM Left foot pain Result s for this AP/LAT/MO/LO 4VWS CDT procedure are in the results section. documented in this encounter Results XR Foot Lt AP/Lat/MO/LO [...] encounter Visit Diagnoses Diagnosis Left foot pain Pain in limb documented in this encounter Care Teams Core Finisher Relationship Specialty Start Date End Date Alisha Kimball MD PCP - General 07/08/05 [address] [place] [address] documented as of this encounter
--- OUTSIDE RECORDS SUMMARY | 2022-04-07 07:25 | XMS_ITS | Encounter Summary ---
:1955 Author Organization [facility] Address [address] [address] Care Team Providers Name Role Phone Carroll Avalos MD Primary Care Provider Reason for Visit Reason Comments Refill amLODIPine (NORVASC) 5 MG ta blet [Pharmacy Med Name: AMLODIPINE 5MG TAB] Encounter Details Date Type Department Care Team Description [facility] (amLODIPine [address] [facility] [address] (NORVASC) 5 [place] [address] [place] [address] [Pharmacy Med Name: [phone] (Wo rk) AMLODIPINE 5MG TAB]) Social History Tobacco Use Types Packs/Day Years Used Date Smoking Tobacco: Never Smokeless Tobacco: Never Alcohol Use Standard Drinks/Week Comments No 0 (1 standard drink = 0.6 oz pure alcoho l) Sex Assigned at Date Recorded Not on file documented as of this encounter Nursing Notes Interface, Out Surescripts Prov Query - 01/22/2017 3:19 AM CDT amLODIPine (NORVASC) 5 MG tablet [Pharmacy Med Name: AMLODIPINE 5MG TAB] Protocol: Cardiovascular - Calcium Channel Blockers -> The requested medication was previously set to No Print/No Fill by an non-prescriber. -> Refill x 12 months (until due for an office visit, DBP check and SBP check) Last qualifying visit: 12/07/2016 (in Family Practice) Next scheduled visit: None Last ordered by CARROLL AVALOS: 04/09/2016 (288 days ago as No Print/No Fill on 04/09/2016 by RASHAD FRAGA), Sig: take 1 tab by mouth daily. (changed but equivalent) SBP: 114 mm Hg on 12/07/2016 DBP: 79 mm Hg on 12/07/2016 Powered by [employer], Reference: [id number], 01/22/2017 3:19:00 AM CDT, Luis Eduardo: ARNOLD AMEZQUITA RN ([id number]) documented in this encounter Plan of Treatment Not on filedocumented as of this encounter Visit Diagnoses Not on filedocumented in this encounter Care Teams Lock Maintenance Supervisor Relationship Specialty Start Date End Date Carroll Avalos MD PCP - General 07/08/05 [address] [place] [address] documented as of this encounter
--- OUTSIDE RECORDS SUMMARY | 2022-04-07 07:25 | XMS_ITS | Encounter Summary ---
:1955 Author Organization [facility] Address [address] [facility] [place] [address] Care Team Providers Name Role Phone Alisha Kimball MD Primary Care Provider Reason for Visit Reason Comments HTN MANAGEMENT AND EDUCATION Encounter Details Date Type Department Care Team Description 06/04/2016 Office Visit [facility] Hans, Tesha, Essential hypertension (Prim levy Dx); [address] [facility] PharmD Diabetes mellitus, type 2 (HRC); [place], [place] [address] Hypercholeste rolemia (HRC) [address] [facility] [phone] [place] [address] Social History Tobacco Use Types Packs/Day Years Used Date Smoking Tobacco: Never Smokeless Tobacco: Never Alcohol Use Standard Drinks/Week Comments No 0 (1 standard drink = 0.6 oz pure alcoho l) Sex Assigned at Date Recorded Not on file documented as of this encounter Last Filed Vital Signs Vital Sign Reading Time Taken Comments Blood Pressure 122/95 06/04/2016 7:49 AM CHILD CARE NURSE Pulse 86 06/04/2016 7:49 AM CHILD CARE NURSE Temperature - - Respiratory Rate - - Oxygen Saturation - - Inhaled Oxygen Concentration - - Weight - - Height - - Body Mass Index - - documented in this encounter Patient Instructions Patient InstructionsSoKenroy gordon - 06/04/2016 7:48 AM CST We will start you on Hydrochlorothiazide 25 mg once daily. Keep taking all your other medications asprescribed. We would like to see you back in 2 weeks for a blood pressure follow up and labs. Make sure you get labs done today as well. Your follow up appointment is scheduled for at 8:00 am. Please call me or e-mail if you have questions. Thanks, Gamal Jasmine D CARE NURSE documented in this encounter Progress Notes Kenroy Anderson - 06/04/2016 7:57 AM CST S Loc Velasco is a 61 y.o. old female who was referred by [employer] for HTN management/education. This is a 1 month follow up from her last appointment. At that time, we increased her losartan from 25 mg to 50 mg once daily and labs in 2 weeks. She forgot to get the labs checked but will have them done today. She has tolerated the medication well and complains of no side effects. No other changes in her medications. She does not measure her blood pressure at home. Her blood sugars have remained controlled on metformin and her last A1c was at goal. She denies any episodes of hypoglycemia. Pt denies dizziness, headache, chest pain/pressure, palpitations, orthostatic effects, cough , edema, bruising, bleeding and hypoglycemia. Exercise: she continues to walk 2x per day about 30 minutes each Diet: limiting the salt in her diet and trying to lose weight Medication optimization: Patient reports missing a dose [...] ??? Never Used ASPIRIN USE: Yes BP 122/95 mmHg Pulse 86 Estimated body mass index is 31.05 kg/(m^2) as calculated from the following: Height as of 12/09/15: 5' 4 (1.626 m). Weight as of 03/12/16: 181 lb (82.101 kg). BP Readings from Last 3 Encounters: 06/04/16 122/95 05/07/16 131/99 04/09/16 133/94 HGB A1C (%) Date Value 03/06/2016 6.6* 11/30/2015 7.3* 07/27/2015 7.2* CHOLESTEROL (mg/dl) Date Value 11/30/2015 143 HDL (mg/dl) Date Value 11/30/2015 41 LDL, CALC. (mg/dl) Date Value 11/30/2015 72 TRIGLYCERIDE (mg/dl) Date Value 11/30/2015 150* 10/30/2013 118 SODIUM (mmol/L) Date Value 11/30/2015 143 POTASSIUM (mmol/L) Date Value 05/04/2016 4.2 CREATININE (mg/dl) Date Value 05/04/2016 0.72 AST (SGOT) (U/L) Date Value 12/16/2012 31 ALT (SGPT) (U/L) Date Value 11/30/2015 74* BILIRUBIN, TOTAL (mg/dl) Date Value 12/16/2012 0.9 A BP goal :<140/90. Pt is not at goal. LDL goal: moderate intensity statin. Pt is at goal. HgbA1C goal: <7%. Pt is at goal. 1. HTN and amlodipine and losartan. Indication - Additional Drug Therapy needed: synergistic/potentiating 2. HTN and losartan. Safety/screening - Lab monitoring needed. P 1. Per cpa patient to start HCTZ 25 mg once daily in addition to all her other medications. Monitor for side effects of orthostatic hypotension, dizziness, and possible allergic reaction. She has a past intolerance to sulfa antibiotics listed in her chart but she states it was several years ago to a certain antibiotic (unsure of which one) that caused some redness and swelling. Cross- reactivity is rare with sulfa antibiotics and HCTZ. This was discussed with the patient and she was agreeable to trying HCTZ and monitoring for reaction. 2. Patient instructed to get labs done after our visit today for K, Scr. 3. A copy of the AVS was provided to the patient and all questions answered. 4. Follow up appointment set up for June 18 at 8:00 am. Updated eyefactive list and reviewed medications including indications with patient. Total time spent with patient 30 minutes. Monica Jasmine, PharmD IV Student Appointment conducted by student. Case discussed with student and I agree with student's plan/note. Tesha Maxwell PharmD 06/04/2016, 8:46 AM D CARE NURSE documented in this encounter Plan of Treatment Not on filedocumented as of this encounter Visit Diagnoses Diagnosis Essential hypertension (HRC) - Primary Unspecified essential hypertension Diabetes mellitus, type 2 (HRC) Type II or unspecified type diabetes dinora litus without mention of complication, not stated as uncontrolled Hypercholesterolemia Pure hypercholesterolemia documented in this encounter Care Teams Observation Nurse Relationship Specialty Start Date End Date Alisha Kimball MD PCP - General 07/08/05 [address] [place] [address] documented as of this encounter"
--- OUTSIDE RECORDS SUMMARY | 2022-04-07 07:25 | XMS_ITS | Encounter Summary ---
:1955 Author Organization [facility] Address [address] [place] [address] Care Team Providers Name Role Phone Alisha Kimball MD Primary Care Provider Encounter Details Date Type Department Care Team Description 12/07/2016 Lab Visit [facility] Need for hepatitis C screeni ng test; [address] Elevated [place] [address] Social History Tobacco Use Types [...] Procedure Name Priority Date/Time Associated Comments Diagnosis HEPATITIS A ANTIBODY, Routine 12/07/2016 9:21 AM Elevated live r Results for this IGG CDT enzymes procedure are i n the results section. CERULOPLASMIN Routine 12/07/2016 9:21 AM Elevated liver Result s for this CDT enzymes procedure are i n the results section. HEPATITIS B SURFACE Routine 12/07/2016 9:21 AM Elevated liver Results for this ANTIBODY CDT enzymes procedure are i n the results section. LIVER PANEL(HEPATIC Routine 12/07/2016 9:21 AM Elevated liver Results for this FUNCTION PANEL) CDT enzymes procedure ar e in the results section. HEPATITIS C ANTIBODY, Routine 12/07/2016 9:21 AM Need for hepa titis Results for this WITH REFLEX CDT C screening test procedure are in Elevated liver the results enzymes section. FERRITIN Routine 12/07/2016 9:21 AM Elevated liver Results for this CDT enzymes procedure are i n the results section. SELAM SCREEN Routine 12/07/2016 9:21 AM Elevated liver Results for this CDT enzymes procedure are i n the results section. HBSAG (HEPATITIS B Routine 12/07/2016 9:21 AM Elevated liver R esults for this SURFACE AG) CDT enzymes procedure are i n the results section. ESR Routine 12/07/2016 9:21 AM Elevated liver Results for this CDT enzymes procedure are i n the results section. documented in this encounter Results (ABNORMAL) Hepatitis A Antibody, IgG (12/07/2016 9:21 AM CDT) [facility] Method Time Signature Hepatitis A Negative POSR [facility] Ab, IgG (Non LABORATORIES Reactive) (A) Specimen Anatomical Collection Method Collection Time Receive d Time (Source) Location / / Volume [facility] 12/07/2016 9:21 AM 7 9:22 CDT AM CDT Narrative [facility] - 12/07/2016 5:10 PM C DT Performed at [facility], [address] [place] [address] ??[id number] Alisha Kimball MD LAB_1 Performing Organization Address City/[facility] Phon e Number [facility] [phone] Ferritin (12/07/2016 9:21 AM CDT) athologist Signature Ferritin 114 9 - 204 [facility] ng/ml Specimen Anatomical Collection Method Collection Time Receive d Time (Source) Location / / Volume Laterality 12/07/2016 9:21 AM 7 9:22 CDT AM CDT Narrative [facility] - 12/07/2016 1:54 PM C DT Performed at [facility], [address] [place] [address] ??[id number] Alisha Kimball MD LAB_1 Performing Organization Address [facility] Phon e Number [facility] [phone] Ceruoplasmin (12/07/2016 9:21 AM CDT) Component Value Ref Test Analysis Performed At [facility] Method Time Signature Ceruloplasmin 21 [facility] Reference range: 17 to 54 [facility] Unit: mg/dL Ceruloplasmin (NOTE) [facility] REFERENCE INTERVAL: Ceruloplasmin LABORATORIES Access complete set of age- and/or gender-specific reference ?? intervals for this test in the [facility] Director Of Patient Care y ?? (Digital Message Display). [address] [place] [address] www.Digital Message Display, Sadi Alba MD, Lab. Director Specimen Anatomical Collection Method Collection Time Receive d Time (Source) Location / / Volume Laterality 12/07/2016 9:21 AM 7 9:22 CDT AM CDT Narrative [facility] - 12/08/2016 1:54 PM C DT Performed by [facility], [address], [place] [address] Alisha Kimball MD LAB_1 Performing Organization Address City/[facility] Phon e Number [facility] [phone] SELAM Screen (12/07/2016 9:21 AM CDT) Analysis Performed At Patho logist Time Signature SELAM Screen Negative NEG [facility] Specimen Anatomical Collection Method Collection Time Receive d Time (Source) Location / / Volume Laterality 12/07/2016 9:21 AM 7 9:22 CDT AM CDT Narrative [facility] - 12/08/2016 4:48 PM C DT Performed at [address] ??[id number] Alisha Kimball MD LAB_1 Performing Organization Address City/[facility]/ZIP Code Phon e Number [facility] [phone] ESR (12/07/2016 9:21 AM CDT) P athologist Signature ESR 6 0 - 20 [facility] mm/hr Specimen Anatomical Collection Method Collection Time Receive d Time (Source) Location / / Volume Laterality 12/07/2016 9:21 AM 7 9:22 CDT AM CDT Narrative [facility] - 12/07/2016 2:59 PM C DT Performed at [facility], [address] [place] [address] ??[id number] Alisha Kimball MD LAB_1 Performing Organization Address City/[facility]/ZIP Code Phon e Number [facility] [phone] HBsAg (Hepatitis B Surface Antigen) (12/07/2016 9:21 AM CDT) [facility] Method Time Signature HBsAg Negative (Non NEGNR [facility] Reactive) LABORATORIES Specimen Anatomical Collection Method Collection Time Receive d Time (Source) Location / / Volume Laterality 12/07/2016 9:21 AM 7 9:22 CDT AM CDT Narrative [facility] - 12/07/2016 5:10 PM C DT Performed at [address] ??[id number] Alisha Kimball MD LAB_1 Performing Organization Address City/[facility] Phon e Number [facility] [phone] (ABNORMAL) Hepatitis B Surface Antibody (12/07/2016 9:21 AM CDT) [facility] Time Signature Hep B Surf AB <2.0 (L) >11.9 [facility] Result mIU/ml LABORATORIES Hep B Surf AB Negative (Non Reactive) [facility] Interp Individual is considered not immune LABORATORIES to HBV infection. Specimen Anatomical Collection Method Collection Time Receive d Time (Source) Location / / Volume Laterality 12/07/2016 9:21 AM 7 9:22 CDT AM CDT Narrative [facility] - 12/07/2016 5:11 PM C DT Performed at [facility], [address] [place] [address] ??[id number] Alisha Kimball MD LAB_1 Performing Organization Address City/[facility] Phon e Number [facility] [phone] (ABNORMAL) Liver Panel(Hepatic Function Panel) (12/07/2016 9:21 AM CDT) [facility] Time Signature Alkaline 85 40 - 150 [facility] Phosphatase U/L LABORATORIES Bilirubin, Total 0.5 0.2 - 1.2 [facility] mg/dl LABORATORIES Bilirubin, 0.2 0.0 - 0.5 [facility] Direct mg/dl LABORATORIES ALT (SGPT) 68 (H) 0 - 55 [facility] U/L LAB[facility] AST (SGOT) 31 10 - 40 [facility] U/L LABOR[facility] Protein, Total 7.1 6.4 - 8.3 [facility] g/dl LABORATORIES Albumin 3.8 3.5 - 5.0 [facility] g/dl LAB[facility] A/G Ratio, calc. 1.2 >1.0 [facility] Specimen Anatomical Collection Method Collection Time Receive d Time (Source) Location / / Volume Laterality 12/07/2016 9:21 AM 7 9:22 CDT AM CDT Narrative [facility] - 12/07/2016 1:39 PM C DT Performed at [address] ??[id number] Alisha Kimball MD LAB_1 Performing Organization Address [facility] Phon e Number [facility] [phone] HEP C recommended for patients born between 5744-6834 (12/07/2016 9:21 AM CDT) [facility] Method Time Signature Anti-HCV Negative (Non NEGNR [facility] Reactive) LABORATORIES Comment: Antibodies to HCV not detected. Does not exclude the possibility of exposure to HCV. Specimen Anatomical Collection Method Collection Time Receive d Time (Source) Location / / Volume Laterality 12/07/2016 9:21 AM 7 9:22 CDT AM CDT Narrative [facility] - 12/07/2016 2:01 PM C DT Performed at [address] ??[phone] Alisha Kimball MD LAB_1 Performing Organization Address City/[facility] Phon e Number [facility] [phone] documented in this encounter Visit Diagnoses Diagnosis Need for hepatitis C screening test Special screening examination for other specified viral diseases Elevated liver enzymes Nonspecific elevation of levels of trans aminase or lactic acid dehydrogenase (LDH) documented in this encounter Care Teams [employer] 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
--- OUTSIDE RECORDS SUMMARY | 2022-04-07 07:25 | XMS_ITS | Encounter Summary ---
:1955 Author Organization [facility] Address [address] [facility] [place] [address] Care Team Providers Name Role Phone Alisha Kimball MD Primary Care Provider Reason for Referral Procedure/Equipment (Routine) - Incomplete Specialty Diagnoses / Procedures Referred By Contact Refer red To Contact Diagnoses Syncope, unspecified syncope type Torey Norton MD Procedures NM Card Exercise Rest/Stress Spect [address] [place] [id number] Referral ID Status Reason Start Date Expiration Date Visits V isits Requested Authorized [id number] Incomplete 03/04/2017 06/03/2018 6 6 Procedure/Equipment (Routine) - Closed Specialty Diagnoses / Procedures Referred By Contact Refer red To Contact Diagnoses Syncope, [place] [address] [place], [place] [address] Referral ID Status Reason Start Date Expiration Date Visits Requ ested Visits Authorized [id number] Closed 03/04/2017 06/03/2018 1 1 Scheduling Instructions You will be contacted within a week by bk cárdenas 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 This recommended service may not be cove red by your insurance coverage. We suggest you call your health insurance company a bout your coverage and benefits for this appointment. Reason for Visit Reason Comments LIGHTHEADEDNESS Encounter Details Date Type Department Care Team Description 03/04/2017 Office Visit [facility] Torey Norton Syncope, unspecified syncope type (Primary Dx); Rakesh Sosa MD Diabetes mellitus, type 2 ([facility]) [address] [facility] [address] [place] [address] [phone] Social History Tobacco Use Types Packs/Day Years Used Date Smoking Tobacco: Never Smokeless Tobacco: Never Alcohol Use Standard Drinks/Week Comments No 0 (1 standard drink = 0.6 oz pure alcoho l) Sex Assigned at Date Recorded Not on file documented as of this encounter Last Filed Vital Signs Vital Sign Reading Time Taken Comments Blood Pressure 119/80 03/04/2017 8:47 AM CDT Pulse 81 03/04/2017 8:47 AM CDT Temperature - - Respiratory Rate 12 03/04/2017 8:47 AM CDT Oxygen Saturation - - Inhaled Oxygen Concentration - - Weight 83.5 kg (184 lb) 03/04/2017 8:47 AM CDT Height - - Body Mass Index 31.58 12/07/2016 8:21 AM CDT documented in this encounter Patient Instructions Patient InstructionsTorey Norton MD - 03/04/2017 8:40 AM CDT Drink 8 cups water/day Have bp rechecked in about a week documented in this encounter Progress Notes Torey Norton MD - 03/04/2017 8:40 AM CDT Historical: Chief Complaint Patient presents with ??? LIGHTHEADEDNESS Dizziness How long have you had these symptoms? 4month(s) Is there anything that relieves your symptoms? sitting still Is there a sense of movement or spinning with your dizziness? YES Do you feel lightheaded or as if you might faint? YES Fainted 5 days ago, down for 20seconds as keptin sitting position by her sister in law. Does your dizziness get worse when standing? YES Does your dizziness get worse with head movement? No Have you ever had dizziness like this before? No Are there any treatments you have tried? No Episodes are usually brief presyncope feeling with no palpitations, cp or nausea, no dyspnea, no blood in stool. No unexpected wt loss Episodes occur with activity only like house work but not with walking. Family history father had CAD less than age 55 I have personally reviewed the patient's allergies, medications and past medical history in detail and updated the patient record as necessary. Observed:BP 119/80 Pulse 81 Resp 12 Wt 184 lb (83.5 kg) BMI 31.58 kg/m2 Physical Exam: General Appearance: alert, well appearing and in no apparent distress Neck: no lymphadenopathy and no thyromegaly or nodules Heart: regular rate and rhythm and no murmurs, gallops or rubs Lungs: clear to ausculation and no wheezes, rales or rhonchi ECG Sinus rhythm with PACs, no other abnormalities. No prior. Assessment/Plan: (R55) Syncope, unspecified syncope type (primary encounter diagnosis) Plan: ECG 12-LEAD ROUTINE [[id number]], Complete Blood Count-No Diff, Basic Metabolic Panel, Holter Monitor, NM Card Exercise Rest/Stress Spect Increase water intake Decrease HCTZ to 1/2 pill daily Recheck bp one week (E11.9) Diabetes mellitus, type 2 ([facility]C) Plan: Hgb A1c Please see orders and patient instructions Torey Norton MD documented in this encounter Plan of Treatment Scheduled Referrals Name Type Priority Associated Diagnoses Order S chedule Holter Monitor Referral Routine Syncope, unspecified synco pe Ordered: 03/04/2017 type documented as of this encounter Procedures Procedure Name Priority Date/Time Associated Diagnosis Comme nts ECG 12-LEAD ROUTINE Routine 03/04/2017 9:40 AM Syncope, unspec ified Results for this CDT syncope type procedure are i n the results section. documented in this encounter Results NM [...] prior study available. ?? Roddy Thurston MD, TONYA DAMON (Electronically Signed) Final Date: ?22 March 2017 [...] No prior study available. Roddy Thurston MD, TONYA DAMON (Electronically Signed) Final Date: 22 March 2017 11:40 Torey Ian Norton MD RAD NM ECG 12-LEAD ROUTINE [[id number]] (03/04/2017 9:40 AM CDT) P athologist Signature Ventricular Rate 75 BPM [facility] Atrial Rate 75 BPM [facility] P-R Interval 150 ms [facility] QRS Duration 86 ms [facility] QT 394 ms [facility] QTc 439 ms [facility] P [place] 55 degrees [facility] R [place] 37 degrees [facility] T [place] 39 degrees [facility] Specimen (Source) Anatomical Collection Method Collection Time Re ceived Time Location / / Volume Laterality 03/04/2017 9:40 AM CDT Narrative [facility] - 03/12/2017 11:27 AM CDT Sinus rhythm with Premature atrial complexes Otherwise normal ECG No previous ECGs available Confirmed by MD NORTON MARVIN G ([id number]), KIARA Nunez ([id number]) on 03/12/2017 11:27:44 AM Procedure Note Torey Norton MD - 03/12/2017Form atting of this note might be different from the original. Sinus rhythm with Premature atrial compl exes Otherwise normal ECG No previous ECGs available Confirmed by MD NORTON MARVIN G ([id number]), KIARA Nunez ([id number]) on 03/12/2017 11:27:44 AM Torey Norton MD EKG Performing Organization Address City/State/ZIP Code Phon e Number [facility] (ABNORMAL) Hgb A1c (03/04/2017 9:26 AM CDT) [...] 3:36 PM C DT Performed at [facility], [address] [place] [id number] Torey Norton MD LAB_1 Performing Organization Address City/State/ZIP Code Phon e Number [facility] [phone] Basic Metabolic Panel (03/04/2017 9:26 AM CDT) [...] 03/04/2017 3:55 PM C DT Performed at [address] ??[id number] Torey Norton MD LAB_1 Performing Organization Address City/State/ZIP Code Phon e Number [facility] [phone] Complete Blood Count-No Diff (03/04/2017 9:26 AM [...] 03/04/2017 4:02 PM C DT Performed at [facility], [address] [place] [address] ??[id number] Torey Norton MD LAB_1 Performing Organization Address City/State/ZIP Code Phon e Number [facility] [phone] documented in this encounter Visit Diagnoses Diagnosis Syncope, unspecified syncope type - Prim levy Diabetes mellitus, type 2 ([facility]C) Type II or unspecified type diabetes dinora litus without mention of complication, not stated as uncontrolled Syncope, unspecified syncope type Diabetes mellitus, type 2 ([facility]) Type II or unspecified type diabetes dinora litus without mention of complication, not stated as uncontrolled Syncope, unspecified syncope type documented in this encounter 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
--- OUTSIDE RECORDS SUMMARY | 2022-04-07 07:25 | XMS_ITS | Encounter Summary ---
:1955 Author Organization [facility] Address [address] [address] Care Team Providers Name Role Phone Alisha Kimball MD Primary Care Provider Reason for Referral Consult/Transfer Care (Routine) - Closed Specialty Diagnoses / Procedures Referred By Contact Refer red To Contact Diagnoses Alisha Hamilton MD [address] [place] [address] Referral ID Status Reason Start Date Expiration Date Visits Requ ested Visits Authorized [id number] Closed 12/07/2016 03/08/2018 1 1 Scheduling Instructions If an appointment with [facility] Fo ot and Ankle Surgery was advised and you have not been contacted to schedule that appo intment within 3 business days, please call [phone] for assistance. We suggest you call your health insurance company about your coverage and benefits for this appo intment. Reason for Visit Reason Comments ROUTINE HEALTH MAINTENANCE smartset/had labs done last week. Encounter Details Date Type Department Care Team Description 12/07/2016 Office Visit Alisha Fry, Diabetes mellitus, type 2 (HRC) (Primary Dx); Practice MD Encounter for routine adult health exami nation without abnormal findings; [address] Elevated liver enzymes; [place] [address] [place] [address] Need for hepatitis C screening test; [phone] [employer] (Work) Social History Tobacco Use Types Packs/Day Years Used Date Smoking Tobacco: Never Smokeless Tobacco: Never Alcohol Use Standard Drinks/Week Comments No 0 (1 standard drink = 0.6 oz pure alcoho l) Sex Assigned at Date Recorded Not on file documented as of this encounter Last Filed Vital Signs Vital Sign Reading Time Taken Comments Blood Pressure 114/79 12/07/2016 8:28 AM CDT Pulse 77 12/07/2016 8:28 AM CDT Temperature 36.6 ??C (97.8 ??F) 12/07/2016 8:21 AM CDT Respiratory Rate - - Oxygen Saturation - - Inhaled Oxygen Concentration - - Weight 83.9 kg (185 lb) 12/07/2016 8:21 AM CDT Height 162.6 cm (5' 4) 12/07/2016 8:21 AM CDT Body Mass Index 31.76 12/07/2016 8:21 AM CDT documented in this encounter Patient Instructions Patient InstructionsFrancesca Cho, SUPERVISOR SEWER MAINTENANCE - 12/07/2016 8:15 AM CDT Images from the original note were not included. For liver: Labs today. If they are normal, I will recommend an ultrasound. Decrease your atorvastatin to 1/2 tab daily. Well Visit, Women 50 to 65: Care [...] can you learn more? 1. Go to [employer] or [employer]. 2. Enter Y074 in the search box. Current as of: January 21, 2016 Content Version: 11.2 ?? [id number] [employer], [employer]. Nonalcoholic Steatohepatitis (SMITH): Care Instructions Your Care Instructions Nonalcoholic steatohepatitis (SMITH) is liver inflammation. It is caused by a buildup of fat in the liver. The fat buildup is not caused by drinking alcohol. Because of the inflammation, the liver does not work as well as it should. SMITH is part of a group of liver diseases called nonalcoholic fatty liver disease. In these diseases, fat builds up in the liver and sometimes causes liver damage. This damage can get worse over time. Follow-up care is a israel part of your treatment and safety. Be sure to make and go to all appointments, and call your doctor if you are having problems. It's also a good idea to know your test results and keep a list of the medicines you take. How can you care for yourself at home? ?? Stay at a healthy weight. Or if you need to, slowly get to a healthy weight. ?? Control your cholesterol. Talk to your doctor about ways to lower your cholesterol, if needed. You might try getting active, taking medicines, and making healthy changes to your diet. ?? Eat healthy foods. This includes fruits, vegetables, lean meats and dairy, and whole grains. ?? If you have diabetes, keep your blood sugar at your target level. ?? Get at least 30 minutes of exercise on most days of the week. Walking is a good choice. You also may want to do other activities, such as running, swimming, cycling, or playing tennis or team sports. ?? Limit alcohol, or do not drink. Alcohol can damage the liver and cause health problems. When should you call for help? Call your doctor now or seek immediate medical care if: ?? You have yellowing of the skin or the whites of the eyes. (This is called jaundice.) ?? You have pain in the upper right part of your belly. Watch closely for changes in your health, and be sure to contact your doctor if: ?? You have swelling in your legs or belly. ?? Your skin itches. Where can you learn more? 1. Go to [employer] or [employer]. 2. Enter F761 in the search box. Current as of: February 11, 2016 Content Version: 11.2 ?? [id number] [employer], [employer]. documented in this encounter Progress Notes Alisha Kimball MD - 12/07/2016 8:15 AM CDT Routine Health Maintenance: Historical: Loc Velasco is a 61 y.o. old female Chief Complaint Patient presents with ??? ROUTINE HEALTH MAINTENANCE smartset/had labs done last week. Current concerns: 1. Her left great toe points out and pushes on her other toes. Uncomfortable. Would like to see Podiatry. 2. We talked about her recent labs. Hgb A1c (%) Date Value 12/01/2016 7.2 (H) 03/06/2016 6.6 (H) Last November, her A1C was 7.3. Does not do as well with diet/exercise in the winter. Taking the metformin as directed without side effects. Committed to losing weight and does not want more medication for her diabetes. ALT (SGPT) (U/L) Date Value 12/01/2016 87 (H) Has a history of blood transfusion in 1996 with her hysterectomy. No tattoo or IVDU. Denies multiplesex partners. No known exposure to hepatitis. Menses are: absent- hysterectomy History of abnormal pap tests? No Diet, fruits/ vegetables: -4 servings each day Present exercise habits: 30 minutes or more, >7 times per week. walking Do you have any concerns about [...] surgical, family and social histories. Observed: BP 114/79 Pulse 77 Temp 97.8 ??F (36.6 ??C) (Tympanic) Ht 5' 4 (1.626 m) Wt 185 lb (83.9 kg) BMI 31.76 kg/m2 General: Appears stated age, alert and comfortable HEENT: normal eyes, ears, throat, oropharynx. Neck: supple. No LAD. No thyromegaly or mass. Lungs: clear to auscultation, no wheezes or rales Breasts: no skin changes, no dominant masses, no axillary lymphadenopathy CV: regular rate and rhythm, normal S1 and S2 without murmur or click Abd: Soft, non-tender, no masses, no hepatomegaly or splenomegaly. : not examined. Skin: no significant abnormalities noted Extremities: no cyanosis, clubbing, or edema. Feet in good repair. Normal light touch sensation. Bunion deformity left great toe. Assessment/Plan: ICD-10-CM 1. Diabetes mellitus, type 2 (HRC) E11.9 metFORMIN XR (GLUCOPHAGE XR) 500 MG 24 hour release tablet 2. Encounter for routine adult health examination without abnormal findings Z00.00 3. Elevated liver enzymes R74.8 HEP C recommended for patients born between 3276-2655 Liver Panel(Hepatic Function Panel) Hepatitis B Surface Antibody HBsAg (Hepatitis B Surface Antigen) ESR SELAM Screen Ceruoplasmin Ferritin Hepatitis A Antibody, IgG 4. Need for hepatitis C screening test Z11.59 HEP C recommended for patients born between 7101-9350 5. Bunion M21.619 Foot & Ankle/Podiatry Consult-Adult/Peds Patient counseled: -protection from UV light -calcium and vitamin D recommendations 1. Elevated liver enzymes. May be from the atorvastatin, although low dose. Possible fatty liver. Consider other cause. Discussed. See the patient instructions. 2. Bunion. She will see Podiatry. Alisha Kimball MD documented in this encounter Plan of Treatment Scheduled Referrals Name Type Priority Associated Diagnoses Order S chedule Foot & Ankle/Podiatry Referral Routine Bunion Ordere d: 12/07/2016 Consult-Adult/Peds documented as of this encounter Results (ABNORMAL) Hepatitis A Antibody, IgG (12/07/2016 9:21 AM CDT) [facility] Method Time Signature Hepatitis A Negative POSR [facility] Ab, IgG (Non LABORATORIES Reactive) (A) Specimen Anatomical Collection Method Collection Time Receive d Time (Source) Location / / Volume Laterality 12/07/2016 9:21 AM 7 9:22 CDT AM CDT Narrative [facility] - 12/07/2016 5:10 PM C DT Performed at [facility], [address] [place] [address] ??[id number] Alisha Kimball MD LAB_1 Performing Organization Address [facility] [address] [facility] Phon e Number [facility] [phone] Ferritin (12/07/2016 9:21 AM CDT) P athologist Signature Ferritin 114 9 - 204 [facility] ng/ml Specimen Anatomical Collection Method Collection Time Receive d Time (Source) Location / / Volume Laterality 12/07/2016 9:21 AM 7 9:22 CDT AM CDT Narrative [facility] - 12/07/2016 1:54 PM C DT Performed at [facility], [address] [place] [address] ??[id number] Alisha Kimball MD LAB_1 Performing Organization Address City/[facility] [address]/[facility] Phon e Number [facility] [phone] Ceruoplasmin (12/07/2016 9:21 AM CDT) Component Value Ref Test Analysis Performed At Patholo gist Range Method Time Signature Ceruloplasmin 21 [facility] Reference range: 17 to 54 [facility]O [facility] Unit: mg/dL Ceruloplasmin (NOTE) [facility] REFERENCE INTERVAL: Ceruloplasmin LABORATORIES Access complete set of age- and/or gender-specific reference ?? intervals for this test in the [facility] Maintenance Supervisor Mechanical y ?? ([employer]). [place] [address] [email or web address], Sadi Alba MD, Lab. Director Specimen Anatomical Collection Method Collection Time Receive d Time (Source) Location / / Volume Laterality 12/07/2016 9:21 AM 7 9:22 CDT AM CDT Narrative [facility] - 12/08/2016 1:54 PM C DT Performed by [facility], [address] [place], [place] [address] Alisha Kimball MD LAB_1 Performing Organization Address City/[facility] [address]/[facility] Phon e Number [facility] [phone] SELAM Screen (12/07/2016 9:21 AM CDT) Analysis Performed At Patho logist Time Signature SELAM Screen Negative NEG [facility] Specimen Anatomical Collection Method Collection Time Receive d Time (Source) Location / / Volume Laterality 12/07/2016 9:21 AM 7 9:22 CDT AM CDT Narrative [facility] - 12/08/2016 4:48 PM C DT Performed at [facility], [address] [place] [address] ??[id number] Alisha Kimball MD LAB_1 Performing Organization Address City/[facility] [address]/[facility] Phon e Number [facility] [phone] ESR (12/07/2016 9:21 AM CDT) P athologist Signature ESR 6 0 - 20 [facility] mm/hr Specimen Anatomical Collection Method Collection Time Receive d Time (Source) Location / / Volume Laterality 12/07/2016 9:21 AM 7 9:22 CDT AM CDT Narrative [facility] - 12/07/2016 2:59 PM C DT Performed at [facility], [address] [place] [address] ??[id number] Alisha Kimball MD LAB_1 Performing Organization Address [facility] [address]/[facility] Phon e Number [facility] [phone] HBsAg (Hepatitis B Surface Antigen) (12/07/2016 9:21 AM CDT) [facility] Signature HBsAg Negative (Non NEGNR [facility] Reactive) LABORATORIES Specimen Anatomical Collection Method Collection Time Receive d Time (Source) Location / / Volume Laterality 12/07/2016 9:21 AM 7 9:22 CDT AM CDT Narrative [facility] - 12/07/2016 5:10 PM C DT Performed at [address] ??[phone] Alisha Kimball MD LAB_1 Performing Organization Address [facility] [address]/[facility] Phon e Number [facility] [phone] (ABNORMAL) Hepatitis B Surface Antibody (12/07/2016 9:21 AM CDT) [facility] Signature Hep B Surf AB <2.0 (L) [...] 12/07/2016 5:11 PM C DT Performed at [address] ??[address] Alisha Kimball MD LAB_1 Performing Organization Address [facility] [address]/[facility] Phon e Number [facility] [phone] (ABNORMAL) Liver Panel(Hepatic Function Panel) (12/07/2016 9:21 AM CDT) [facility] Signature Alkaline 85 40 - 150 [facility] [...] 12/07/2016 1:39 PM C DT Performed at [address] ??[address] Alisha Kimball MD LAB_1 Performing Organization Address [facility] [address]/[facility] Phon e Number [facility] [phone] HEP C recommended for patients born between 1352-6014 (12/07/2016 9:21 AM CDT) [facility] Method Time Signature Anti-HCV Negative (Non NEGNR [facility] Reactive) LABORATORIES Comment: Antibodies to HCV not detected. Does not exclude the possibility of exposure to HCV. Specimen Anatomical Collection Method Collection Time Receive d Time (Source) Location / / Volume [facility] 12/07/2016 9:21 AM 7 9:22 CDT AM CDT Narrative [facility] - 12/07/2016 2:01 PM C DT Performed at [address] ??[id number] Alisha Kimball MD LAB_1 Performing Organization Address City/[facility] [address]/[facility] Phon e Number [facility] [phone] documented in this encounter Visit Diagnoses Diagnosis Diabetes mellitus, type 2 (HRC) - Primar y Type II or unspecified type diabetes dinora litus without mention of complication, not stated as uncontrolled Encounter for routine adult health exami nation without abnormal findings Elevated liver enzymes Nonspecific elevation of levels of trans aminase or lactic acid dehydrogenase (LDH) Need for hepatitis C screening test Special screening examination for other specified viral diseases Bunion Need for hepatitis C screening test Special screening examination for other specified viral diseases Elevated liver enzymes Nonspecific elevation of levels of trans aminase or lactic acid dehydrogenase (LDH) documented in this encounter Care Teams Research Professor Of Biostatistics Relationship Specialty Start Date End Date Alisha Kimball MD PCP - General 07/08/05 [address] [place] [address] documented as of this encounter
--- OUTSIDE RECORDS SUMMARY | 2022-04-07 07:25 | XMS_ITS | Encounter Summary ---
:1955 [facility] Address [address] [place] [address] Care Team Providers Name Role Phone Alisha Kimball MD Primary Care Provider Encounter Details Date Type Department Care Team Description 12/01/2016 Lab Visit [facility] Encounter for long-term (cur rent) use of medications; [address] [facility] Diabetes mellitus, type 2 (H RC); [place] [address] Hypercholesterolemia; [phone] Essential hyper tension; Screening for t hyroid disorder Social History Tobacco Use Types Packs/Day Years Used Date Smoking Tobacco: Never Smokeless Tobacco: Never Alcohol Use Standard Drinks/Week Comments No 0 (1 standard drink = 0.6 oz pure alcoho l) Sex Assigned at Date Recorded Not on file documented as of this encounter Progress Notes Alisha Kimball MD - 12/02/2016 5:27 PM CDT Will discuss with the patient at her next visit 12/07/2016. Alisha Kimball MD documented in this encounter Plan of Treatment Not on filedocumented as of this encounter Procedures Procedure Name Priority Date/Time Associated Diagnosis Comme nts LIPID PANEL AND Routine 12/01/2016 7:14 AM Diabetes mellitus, Results for this DIRECT LDL(IF CDT type 2 (HRC) procedure are in NEEDED) Hypercholesterolemia the res ults section. CREATININE / GFR Routine 12/01/2016 7:14 AM Essential Resul ts for this CDT hypertension procedure are i n the results section. TSH, SENSITIVE Routine 12/01/2016 7:14 AM Screening for thyroi d Results for this CDT disorder procedure are i n the results section. HGB A1C Routine 12/01/2016 7:14 AM Diabetes mellitus, Res ults for this CDT type 2 (HRC) procedure are i n the results section. ALT (SGPT) Routine 12/01/2016 7:14 AM Diabetes mellitus, Res ults for this CDT type 2 (HRC) procedure are i n the results section. SODIUM Routine 12/01/2016 7:14 AM Encounter for Results for this CDT long-term (current) procedur e are in use of medications the resul ts section. POTASSIUM Routine 12/01/2016 7:14 AM Essential Results f or this CDT hypertension procedure are i n the results section. documented in this encounter Results TSH (12/01/2016 7:14 AM CDT) athologist Signature TSH, Sensitive 1.84 0.30 - [facility] 4.50 LAB[facility]ATORIES uIU/ml Specimen Anatomical Collection Method Collection Time Receive d Time (Source) Location / / Volume Laterality 12/01/2016 7:14 AM 7 7:16 CDT AM CDT Narrative [facility] - 12/01/2016 1:13 PM C DT Performed at [address] ??[id number] Alisha Kimball MD LAB_1 Performing Organization Address [facility] Phon e Number [facility] [phone] (ABNORMAL) ALT (SGPT) (12/01/2016 7:14 AM CDT) athologist Signature ALT (SGPT) 87 (H) 0 - 55 U/L [facility] Specimen Anatomical Collection Method Collection Time Receive d Time (Source) Location / / Volume Laterality 12/01/2016 7:14 AM 7 7:16 CDT AM CDT Narrative [facility] - 12/01/2016 1:01 PM C DT Performed at [facility], [address] [place] [address] ??[phone] Alisha Kimball MD LAB_1 Performing Organization Address [facility] Phon e Number [facility] [phone] Potassium (12/01/2016 7:14 AM CDT) P athologist Signature Potassium 3.9 3.5 - 5.1 [facility] mmol/L Specimen Anatomical Collection Method Collection Time Receive d Time (Source) Location / / Volume Laterality 12/01/2016 7:14 AM 7 7:16 CDT AM CDT Narrative [facility] - 12/01/2016 1:01 PM C DT Performed at [facility], [address] [place] [address] ??[id number] Alisha Kimball MD LAB_1 Performing Organization Address [facility] e Number [facility] [phone] Creatinine / GFR (12/01/2016 7:14 AM CDT) Analysis Performed At [facility] logist Time Signature Creatinine 0.77 0.55 - [facility] 1.02 mg/dl LABORATORIES GFR, Estimated >60 >60 [facility] ml/min/1.7 LABORATORIES 3m2 GFR, Est., If >60 >60 [facility] Black ml/min/1.7 LABORATORIES 3m2 Specimen Anatomical Collection Method Collection Time Receive d Time (Source) Location / / Volume Laterality 12/01/2016 7:14 AM 7 7:16 CDT AM CDT Narrative [facility] - 12/01/2016 1:01 PM C DT Performed at [facility], [address] [place] [address] ??[phone] Alisha Kimball MD LAB_1 Performing Organization Address City/State/[facility] Phon e Number [facility] [phone] Lipid Panel and Direct LDL(If Needed) (12/01/2016 7:14 AM CDT) Patholo gist Method Time Signature Hours Fasting 12 hours [facility] Cholesterol 141 0 - 199 [facility] mg/dl [facility] Triglyceride 88 0 - 149 [facility] mg/dl LAB[facility] HDL 41 >40 mg/dl [facility] LDL, Calc. 82 0 - 129 [facility] mg/dl LAB[facility] Non HDL Chol, 100 mg/dl [facility] Calc [facility] Specimen Anatomical Collection Method Collection Time Receive d Time (Source) Location / / Volume Laterality 12/01/2016 7:14 AM 7 7:16 CDT AM CDT Narrative [facility] - 12/01/2016 1:01 PM C DT Performed at [facility], [address] [place] [address] ??[phone] Alisha Kimball MD LAB_1 Performing Organization Address City/[facility]/ZIP Code Phon e Number [facility] [phone] (ABNORMAL) Hgb A1c (12/01/2016 7:14 AM CDT) P athologist Signature Hgb A1c 7.2 (H) 4.3 - 5.6 [facility] % Comment: See (NOTE) For patients not previously diagnosed wi diabetes: 5.7-6.4%: Increased risk for diabetes (p [...] AM CDT Narrative [facility] - 12/01/2016 1:00 PM C DT Performed at [facility], [address] [place] [address] ??[phone] Alisha Kimball MD LAB_1 Performing Organization Address City/[facility] Code Phon e Number [facility] [phone] Sodium (12/01/2016 7:14 AM CDT) P athologist Signature Sodium 140 136 - 145 [facility] mmol/L Specimen Anatomical Collection Method Collection Time Receive d Time (Source) Location / / Volume Laterality 12/01/2016 7:14 AM 7 7:16 CDT AM CDT Narrative [facility] - 12/01/2016 1:01 PM C DT Performed at [facility], [address] [place] [address] ??[phone] Alisha Kimball MD LAB_1 Performing Organization Address City/State/ZIP Code Phon e Number [facility] [phone] documented in this encounter Visit Diagnoses Diagnosis Encounter for long-term (current) use of medications Encounter for long-term (current) use of other medications Diabetes mellitus, type 2 (HRC) Type II or unspecified type diabetes dinora litus without mention of complication, not stated as uncontrolled Hypercholesterolemia Pure hypercholesterolemia Essential hypertension (HRC) Unspecified essential hypertension Screening for thyroid disorder documented in this encounter Care Teams Performance Manager Relationship Specialty Start Date End Date Alisha Kimball MD PCP - General 07/08/05 [address] [place] [address] documented as of this encounter
--- OUTSIDE RECORDS SUMMARY | 2022-04-07 07:25 | XMS_ITS | Encounter Summary ---
:1955 Author Organization [facility] Address [address] [place] [address] Care Team Providers Name Role Phone Alisha Kimball MD Primary Care Provider Reason for Referral Procedure/Equipment (Routine) - Incomplete Specialty Diagnoses / Procedures Referred By Contact Refer red To Contact Diagnoses Elevated liver enzymes Alisha Kimball MD Procedures US [facility] Complete [address] [place] [address] Referral ID Status Reason Start Date Expiration Date Visits V isits Requested Authorized [id number] Incomplete 12/09/2016 03/10/2018 1 1 Reason for Visit Reason Comments LAB RESULTS Encounter Details Date Type Department Care Team Description 12/08/2016 Telephone [facility] Alisha Kimball MD LAB RESULTS [address] [facility]. [address] [place] [address] [place] [address] (Wo rk) Social History Tobacco Use Types Packs/Day Years Used Date Smoking Tobacco: Never Smokeless Tobacco: Never Alcohol Use Standard Drinks/Week Comments No 0 (1 standard drink = 0.6 oz pure alcoho l) Sex Assigned at Date Recorded Not on file documented as of this encounter Nursing Notes Alisha Kimball MD - 12/09/2016 12:13 PM CDT Called the patient. Reviewed normal labs. Likely atorvastatin but may be fatty liver. Ultrasound. Alisha Kimball MD Treasure Romano - 12/09/2016 9:51 AM CDT Patient returning call. Please call back at [phone]. Ok to leave a detailed message. Treasure Romano Alisha Kimball MD - 12/08/2016 5:09 PM CDT Left message to call back. Alisha Kimball MD documented in this encounter Plan of Treatment Not on filedocumented as of this encounter Results US Abd Complete (12/17/2016 8:25 AM CDT) Anatomical Region Laterality Modality Abdomen Ultrasound Specimen (Source) Anatomical Collection Method Collection Time Re ceived Time Location / / Volume Laterality 12/17/2016 8:25 AM CDT Narrative 12/18/2016 9:21 PM CDT US ABD COMPLETE 12/17/2016 8:25 AM INDICATION: Elevated liver enzymes. COMPARISON: None. FINDINGS: GALLBLADDER: Normal, without cholelithia sis. BILE DUCTS: No bile duct dilation. The c ommon hepatic duct measures 3 mm. LIVER: Liver is very heterogeneous and f atty infiltrated. No discrete mass lesion is seen. Main portal vein demonst rates normal direction of flow. SPLEEN: Normal in size. RIGHT KIDNEY: 10.1 cm in length. Normal. No hydronephrosis. LEFT KIDNEY: 10.8 cm in length. No hydro nephrosis. Small 6 mm cyst seen in the mid kidney. PANCREAS: Pancreas is not well-seen due to bowel gas. Portions which are seen are unremarkable. AORTA: Normal in caliber. IVC: Normal, patent where seen. No ascites. CONCLUSION: 1. ??Liver is heterogeneous and very fat ty infiltrated. No focal mass lesion. 2. ??Small left renal cyst. Procedure Note Tara Eden MD - 12/18/2016Formatti ng of this note might be different from the original. US ABD COMPLETE 12/17/2016 8:25 AM INDICATION: Elevated liver enzymes. COMPARISON: None. FINDINGS: GALLBLADDER: Normal, without cholelithia sis. BILE DUCTS: No bile duct dilation. The c ommon hepatic duct measures 3 mm. LIVER: Liver is very heterogeneous and f atty infiltrated. No discrete mass lesion is seen. Main portal vein demonst rates normal direction of flow. SPLEEN: Normal in size. RIGHT KIDNEY: 10.1 cm in length. Normal. No hydronephrosis. LEFT KIDNEY: 10.8 cm in length. No hydro nephrosis. Small 6 mm cyst seen in the mid kidney. PANCREAS: Pancreas is not well-seen due to bowel gas. Portions which are seen are unremarkable. AORTA: Normal in caliber. IVC: Normal, patent where seen. No ascites. CONCLUSION: 1. Liver is heterogeneous and very fatty infiltrated. No focal mass lesion. 2. Small left renal cyst. Alisha Kimball MD [facility] documented in this encounter Visit Diagnoses Diagnosis Elevated liver enzymes - Primary Nonspecific elevation of levels of trans aminase or lactic acid dehydrogenase (LDH) Elevated liver enzymes Nonspecific elevation of levels of trans aminase or lactic acid dehydrogenase (LDH) documented in this encounter Care Teams Assembler Rubber Footwear Relationship Specialty Start Date End Date Alisha Kimball MD PCP - General 07/08/05 [address] [place] [address] documented as of this encounter
--- OUTSIDE RECORDS SUMMARY | 2022-04-07 07:25 | XMS_ITS | Encounter Summary ---
:1955 Author Organization [facility] Address [address] [place] [address] Care Team Providers Name Role Phone Alisha Kimball MD Primary Care Provider Reason for Referral Procedure/Equipment (Routine) - Incomplete Specialty Diagnoses / Procedures Referred By Contact Refer red To Contact Procedures Alisha Kimball MD [facility] Mammogram Screening Bilat [address] [place] [address] Referral ID Status Reason Start Date Expiration Date Visits V isits Requested Authorized [id number] Incomplete 01/18/2017 04/19/2018 1 1 Reason for Visit Procedure/Equipment (Routine) - Incomplete Specialty Diagnoses / Procedures Referred By Contact Refer red To Contact Procedures Alisha Kimball MD MM Mammogram Screening [place] [address] [place] [address] Referral ID Status Reason Start Date Expiration Date Visits V isits Requested Authorized [id number] Incomplete 01/18/2017 04/19/2018 1 1 Encounter Details Date Type Department Care Team Description 01/18/2017 Imaging [facility] Mammography [address] [facility] [place] [place] [address] Social History Tobacco Use Types [...] Associated Diagnosis Comme nts MM MAMMOGRAM Routine 01/18/2017 10:05 AM Results for this SCREENING BILAT W CDT procedure are in CAD the results section. documented in this encounter Results MM Mammogram Screening Bilat W CAD (01/18/2017 10:05 AM CDT) Anatomical Region Laterality Modality Breast Bilateral Mammography Specimen (Source) Anatomical Location Collection Method / Collectio n Time Received Time / Laterality Volume Impressions 01/18/2017 12:44 PM CDT : ACR BI-RADS Category 1: Negative RECOMMENDATION: Follow Up Imaging in 12 months - Bilateral The results and recommendations of this examination will be communicated to the patient. Narrative 01/18/2017 12:44 PM CDT MM MAMMOGRAM SCREENING BILAT W CAD performed on 01/18/17 Compared to: 01/08/2016 MM Mammogram Scr eening Bilat W CAD, 11/05/2014 MAMMOGRAM SCREENING BILATERAL, and 11/01 BILAT Mammogram screening FINDINGS: Bilateral screening mammogram was performed with the assistance of Computer-Aided Detection. The breasts have scattered areas of fibroglandular density. There is no radiographic evidence of mal ignancy. ?? Alisha Kimball MD [facility] documented in this encounter Visit Diagnoses Not on filedocumented in this encounter Care Teams Psychiatric Social Worker Relationship Specialty Start Date End Date Alisha Kimball MD PCP - General 07/08/05 [address] [place] [address] documented as of this encounter
--- OUTSIDE RECORDS SUMMARY | 2022-04-07 07:25 | XMS_ITS | Encounter Summary ---
:1955 Author Organization [facility] Address [address] [place] [address] Care Team Providers Name Role Phone Alisha Kimball MD Primary Care Provider Reason for Visit Reason Onset Date Comments ERRONEOUS ENTRY 01/22/2017 elisaamlod Encounter Details Date Type Department Care Team Description 01/22/2017 Refill [facility] Alisha Kimball MD ERRONEOUS ENTRY Practice [address] [facility] (ator,amlod) [address] [place] [address] [place] [address] [phone] Social History Tobacco Use Types Packs/Day Years [...] on filedocumented in this encounter Care Teams Member Services Representative Relationship Specialty Start Date End Date Alisha Kimball MD PCP - General 07/08/05 [address] [place] [address] documented as of this encounter
--- OUTSIDE RECORDS SUMMARY | 2022-04-07 07:25 | XMS_ITS | Encounter Summary ---
:1955 Author Organization [facility] Address [address] [place] [address] Care Team Providers Name Role Phone Alisha Kimball MD Primary Care Provider Reason for Visit Reason Comments Dental Conversion [facility] EDR to Reardan convers ion Encounter Details Date Type Department Care Team Description 12/10/2016 Dental Conversion [facility] Conchis S, DMD [address] [place] [address] [place] [address] [phone] Social History Tobacco Use Types Packs/Day Years Used Date Smoking Tobacco: Never Smokeless Tobacco: Never Alcohol Use Standard Drinks/Week Comments No 0 (1 standard drink = 0.6 oz pure alcoho l) Sex Assigned at Date Recorded Not on file documented as of this encounter Discharge Summaries Interface, In Edr Dental Conversion - 03/27/2017 12:00 AM CDT EDR Pt Notes: anybody fine CCB Interface, In Edr Dental Conversion - 04/24/2015 12:00 AM CDT The following Past and Current Health Conditions, if any, were recorded in EDR as YES; notes included: Under physician care of current problem - Yes; Notes: diabetic diagnosed May 2010 ( no meds) High blood pressure. Blood Pressure: 123/ 74. Diabetes. Diabetes is controlled. Diabetes Type II. Medical Additional Notes1: Pulse :83. Amount alcohol used per week2(Compare with Amount alcohol used per week1 amount, if presented; Use greater amount): 0. Medical History Completed by the Patient The following Dental Information, if any, was recorded in EDR: Previous dentist: Dr Alvarado. Last dental visit: 09-24-10. Last dental cleanin03-31-11. Dental exam frequency every 6 months. Reason for this appointment: Specific Concern. Brushes teeth daily. Flosses daily. Foods eaten between meals: Fruits/Vegetables. Drinks these beverages between meals: Water . Uses Fluoridated toothpaste. Primary water source: [facility], Unfiltered. Additional Notes: b 3xdn f 1-2xd. The following Past Dental Treatment, if any, was recorded in EDR: Had >= 1 filling(s) in past three years. Family history of extensive tooth decay. Had oral surgery. Has cold sensitive teeth. Has mouth odor or bad tastes. Is aware of swelling or lumps. Nervous about dental work. The following, if any, are the patient?s Allergy Information: Allergy Medication(s): Sulfa. ASA Physical Status Class II The patient current physician, medical clinic and medications, if any, are: The patient's physician: Dr Alisha Kimball. The patient's medical clinic: [facility]. Current Medication 1: Vitamin Multi. Current Medication Dosage1 : Otc. Current Medication Frequency1 : Daily. Current Medication Dosage2 : Otc. Current Medication Frequency2 : Daily. Current Medication Dosage3 : Otc. Current Medication Frequency3 : Daily. Current Medication 4: Baby Aspirin. Current Medication Dosage4 : 81 Mg. Current Medication Frequency4 : Daily. Current Medication Dosage5 : Otc. Current Medication 6 : Norvasc. Current Medication Frequency6 : Daily. Current Medication 10 : Metformin. Current Medication Wimahx75 : 500mg. Current Medication Ctcmrdktg39 : Daily. Current Medication 11 : Generic Lipitor. Current Medication Nnjftnkes89 : Daily. Health History Note Interface, In Edr Dental Conversion - 09/21/2011 12:00 AM CDT The following Past and Current Health Conditions, if any, were recorded in EDR as YES; notes included: Under physician care of current problem - Yes; Notes: diabetic diagnosed May 2010 ( no meds) Diabetes. Diabetes is controlled. Diabetes Type II. Medical Additional Notes1: 25. Pt adv to follow up w/ . pt was fine when checked by MD took again at end of appt 166/108 rec seeing MD. Amount alcohol used per week2(Compare with Amount alcohol used per week1 amount, if presented; Use greater amount): 0. Medical History Completed by the Patient The following Dental Information, if any, was recorded in EDR: Previous dentist: Dr Alvarado. Last dental visit: 09-24-10. Last dental cleanin03-31-11. Dental exam frequency every 6 months. Reason for this appointment: Specific Concern. Brushes teeth daily. Flosses daily. Foods eaten between meals: Fruits/Vegetables. Drinks these beverages between meals: Water . Uses Fluoridated toothpaste. Primary water source: [facility], Unfiltered. Additional Notes: b 3xdn f 1-2xd. The following Past Dental Treatment, if any, was recorded in EDR: Had >= 1 filling(s) in past three years. Family history of extensive tooth decay. Had oral surgery. Has cold sensitive teeth. Has mouth odor or bad tastes. Is aware of swelling or lumps. Nervous about dental work. The following, if any, are the patient?s Allergy Information: Allergy Medication(s): Sulfa. The patient current physician, medical clinic and medications, if any, are: The patient's physician: Dr Alisha Kimball. The patient's medical clinic: [facility]. Current Medication 1: Vitamin Multi. Current Medication Dosage1 : Otc. Current Medication Frequency1 : Daily. Current Medication 2: Vitamin D. Current Medication Dosage2 : Otc. Current Medication Frequency2 : Daily. Current Medication 3: Fiber Pill. Current Medication Dosage3 : Otc. Current Medication Frequency3 : Daily. Current Medication 4: Baby Aspirin. Current Medication Dosage4 : 81 Mg. Current Medication Frequency4 : Daily. Current Medication 5 : Fish Oil Occasionally. Current Medication Dosage5 : Otc. Current Medication 6 : Chromium. Current Medication Dosage6 : Otc. Health History Note Interface, In Edr Dental Conversion - 07/08/2009 12:00 AM CST The following Past and Current Health Conditions, if any, were recorded in EDR as YES; notes included: Medical Additional Notes1: 25. Pt adv to follow up w/ .. Amount alcohol used per week2(Compare with Amount alcohol used per week1 amount, if presented; Use greater amount): 0. Medical History Completed by the Patient The following Dental Information, if any, was recorded in EDR: Last dental visit: 09-07-2006. Last dental cleanin09-07-06. Dental exam frequency every 6 months. Reason for this appointment: Specific Concern. Brushes teeth daily. Flosses daily. Foods eaten between meals: Fruits/Vegetables. Drinks these beverages between meals: Water . Uses Fluoridated toothpaste. Primary water source: [facility], Unfiltered. Additional Notes: b 3xdn f 1-2xd. The following Past Dental Treatment, if any, was recorded in EDR: Had >= 1 filling(s) in past three years. Family history of extensive tooth decay. Had oral surgery. Has cold sensitive teeth. Has mouth odor or bad tastes. Is aware of swelling or lumps. Nervous about dental work. The following, if any, are the patient?s Allergy Information: Allergy Medication(s): Sulfa. The patient current physician, medical clinic and medications, if any, are: The patient's physician: Dr Alisha Kimball. The patient's medical clinic: [facility]. Current Medication 1: Vitamin Multi. Current Medication 2: Vitamin D. Current Medication 3: Fiber Pill. Current Medication 4: Baby Aspirin. Current Medication 5 : Fish Oil Occasionally. Current Medication 6 : Chromium. 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 Will need to pay FFS for Apr 11 appt. Miscellaneous - Interface, In Edr Dental Conversion - 02/18/2012 12:00 AM CDT 02/18/2012: PIU Updated: Miscellaneous - Interface, In Edr Dental Conversion - 11/05/2011 12:00 AM CDT 11/05/2011: Left Message: In comment section states may be interested in 5% discount option. $ 1203.00 - $60.15= $1142.85 pt total Miscellaneous - Interface, In Edr Dental Conversion - 10/02/2011 12:00 AM CDT 10/02/2011: Email To Physician: Reva Kimball, We have a mutual patient who we saw today and has an upcoming annual regular appointment with you soon. Her name is Melia Velasco (#[id number]). Our concern is that she continues to have an elevated blood pressure while at the dentist. 10/01/11: 161/98 03/31/11: 160/97 09/24/10: 141/98 05/20/09: 148/96 She reports that it isn't a concern when she goes to your office or at home. I'm curious what your findings/ readings will be at your office and if her blood pressure is erratic or only elevated at our office. Perhaps we may need better tracting of her blood pressure or consider an anti-anxiety med for dental visits to help reduce blood pressure at our office. I'll be interested in what you find and what you think. Thanks! Froy Alvarado DDS Miscellaneous - Interface, In Edr Dental Conversion - 08/19/2011 12:00 AM LITIGATION SERVICES MANAGER 08/19/2011: Address Updated: Phone number updated. sg GATION SERVICES MANAGER documented in this encounter Plan of Treatment Not on filedocumented as of this encounter Visit Diagnoses Not on filedocumented in this encounter Care Teams Box Printing Machine Operator Relationship Specialty Start Date End Date Alisha Kimball MD PCP - General 07/08/05 [address] [place] [address] documented as of this encounter
--- OUTSIDE RECORDS SUMMARY | 2022-04-07 07:25 | XMS_ITS | Encounter Summary ---
:1955 Author Organization [facility] Address [address] [place] [address] Care Team Providers Name Role Phone Alisha Kimball MD Primary Care Provider Reason for Visit Procedure/Equipment (Routine) - Incomplete Specialty Diagnoses / Procedures Referred By Contact Refer red To Contact Diagnoses Elevated liver enzymes Alisha Kimball MD Procedures US Abd Complete [address] [place] [address] Referral ID Status Reason Start Date Expiration Date Visits V isits Requested Authorized [id number] Incomplete 12/09/2016 03/10/2018 1 1 Encounter Details Date Type Department Care Team Description 12/17/2016 Imaging [facility] Specialty Alisha Kimball, Elevated liver enzymes Center Ultrasound [address] [place] [address] [place] [address] [phone] Social History Tobacco Use Types Packs/Day Years Used Date Smoking Tobacco: Never Smokeless Tobacco: Never Alcohol Use Standard Drinks/Week Comments No 0 (1 standard drink = 0.6 oz pure alcoho l) Sex Assigned at Date Recorded Not on file documented as of this encounter Plan of Treatment Not on filedocumented as of this encounter Procedures Procedure Name Priority Date/Time Associated Diagnosis Comme nts US ABD COMPLETE Routine 12/17/2016 8:25 AM Elevated liver Resu lts for this CDT enzymes procedure are i n the results section. documented in this encounter Results US Abd Complete (12/17/2016 [...] Small left renal cyst. Alisha Kimball MD RAD US documented in this encounter Visit Diagnoses Diagnosis Elevated liver enzymes Nonspecific elevation of levels of trans aminase or lactic acid dehydrogenase (LDH) documented in this encounter Care Teams Informatica Developer Relationship Specialty Start Date End Date Alisha Kimball MD PCP - General 07/08/05 [address] [place] [address] documented as of this encounter
--- OUTSIDE RECORDS SUMMARY | 2022-04-07 07:25 | XMS_ITS | Encounter Summary ---
:1955 Author Organization [facility] Address [address] [address] Care Team Providers Name Role Phone Alisha Kimball MD Primary Care Provider Reason for Visit Reason Comments HTN MANAGEMENT AND EDUCATION Encounter Details Date Type Department Care Team Description 05/07/2016 Office Visit [facility] Tesha Maxwell, Essential hypertension (Prim levy Dx); [address] [facility] PharmD Diabetes mellitus, type 2 (HRC) [address] [address] [facility] [phone] [place], [place] [address] Social History Tobacco Use Types Packs/Day Years Used Date Smoking Tobacco: Never Smokeless Tobacco: Never Alcohol Use Standard Drinks/Week Comments No 0 (1 standard drink = 0.6 oz pure alcoho l) Sex Assigned at Date Recorded Not on file documented as of this encounter Last Filed Vital Signs Vital Sign Reading Time Taken Comments Blood Pressure 131/99 05/07/2016 7:17 AM CDT Pulse 77 05/07/2016 7:17 AM CDT Temperature - - Respiratory Rate - - Oxygen Saturation - - Inhaled Oxygen Concentration - - Weight - - Height - - Body Mass Index - - documented in this encounter Patient Instructions Patient InstructionsPeTesha wallace PharmD - 05/07/2016 7:05 AM CDT 1) Increase to losartan 50mg 1 tab daily. 2) Continue amlodipine 5mg 1 tab daily. 3) Recheck potassium and kidney function in 2 weeks. Labs have been ordered. 4) Your follow-up appointment is scheduled for June 04 at 8:00am. Please call me or e-mail if you have questions. Thanks, Tesha Maxwell PharmD [facility] on Wednesday & Wednesday [facility] on & Wednesday documented in this encounter Progress Notes Tesha Maxwell PharmD - 05/07/2016 7:04 AM CDT S Loc Velasco is a 61 y.o. old female who was referred by [employer] for HTN management/education. Melia presents today for blood pressure recheck. At her last visit amlodipine was increased to 7.5mg daily, however patient has been taking 5mg daily. Historically 10mg daily has lead to lower leg edema. Patient has not noted increased edema with amlodipine 5mg. She continues on losartan 25mg daily as well. Patient notes she took her blood pressure medications at 5:30am this morning instead of 5:00pm last night. Blood pressure at dental visit earlier this week was 143/91, but patient states her blood pressure is classically up at the dentist. Pt denies dizziness, headache, chest pain/pressure, palpitations, shortness of breath, constipation, diarrhea, numbness or tingling, edema, bruising, bleeding and hypoglycemia Exercise: no change Diet:continues to work on reducing sodium Medication optimization: Patient reports missing a dose [...] visit. BP Readings from Last 2 Encounters: 04/09/16 [...] Value 12/16/2012 0.9 CREATININE (mg/dl) Date Value 05/04/2016 0.72 GFR, ESTIMATED (ml/min/1.73m2) Date Value 05/04/2016 >60 GFR, EST., IF BLACK (ml/min/1.73m2) Date Value 05/04/2016 >60 POTASSIUM (mmol/L) Date Value 05/04/2016 4.2 SODIUM (mmol/L) Date Value 11/30/2015 143 A BP goal :<140/90. Pt is not at goal. LDL goal: moderate intensity statin. Pt is at goal. HgbA1C goal: <7%. Pt is at goal. 1. HTN and losartan. Effectiveness - Dosage Too Low: dosage adjustment recommended 2. HTN and losartan. Safety/screening - Lab monitoring needed. P 1) per CPA increase to losartan 50mg 1 tab by mouth daily. New RX sent to [facility]. 2) Patient to have potassium and kidney function rechecked in 2 weeks. 3) Reminded patient she was to increase to amlodipine 7.5mg daily at her last visit. Since this was not done will remain on 5mg daily with losartan increase. 4) A copy of the After Visit Summary was provided to patient, details were reviewed by me and all questions were answered. 5) Follow-up appointment scheduled for Thursday, Giorgio 1st at 8:00am. Updated EPIC med list and reviewed medications including indications with patient. Total time spent with patient 15 minutes. Tesha Maxwell PharmD Clinical Pharmacist Medication Therapy Management Program documented in this encounter Plan of Treatment Not on filedocumented as of this encounter Results Creatinine / GFR (06/15/2016 4:28 PM STRIPPER CUTTER MACHINE) Analysis Performed At Patho logist Time Signature Creatinine 0.92 0.55 - [facility] 1.02 mg/dl [facility] GFR, Estimated >60 >60 [facility] ml/min/1.7 [facility]ATORIES 3m2 GFR, Est., If >60 >60 [facility] Black ml/min/1.7 LAB[facility]ATORIES 3m2 Specimen Anatomical Collection Method Collection Time Receive d Time (Source) Location / / Volume Laterality 06/15/2016 4:28 PM 6 4:29 STRIPPER CUTTER MACHINE PM STRIPPER CUTTER MACHINE Narrative [facility] - 06/15/2016 6:[address] Performed at [facility], [address] [place] [address] ??[phone] Alisha Kimball MD LAB_1 Performing Organization Address City/[facility] Phon e Number [facility] [phone] Potassium (06/15/2016 4:28 PM STRIPPER CUTTER MACHINE) P athologist Signature Potassium 4.2 3.5 - 5.1 [facility] mmol/L Specimen Anatomical Collection Method Collection Time Receive d Time (Source) Location / / Volume Laterality 06/15/2016 4:28 PM 6 4:29 STRIPPER CUTTER MACHINE PM STRIPPER CUTTER MACHINE Narrative [facility] - 06/15/2016 6:[address] Performed at [facility], [address] [place] [address] ??[phone] Alisha Kimball MD LAB_1 Performing Organization Address City/[facility] Phon e Number [facility] [phone] documented in this encounter Visit Diagnoses Diagnosis Essential hypertension (HRC) - Primary Unspecified essential hypertension Diabetes mellitus, type 2 (HRC) Type II or unspecified type diabetes dinora litus without mention of complication, not stated as uncontrolled Essential hypertension (HRC) Unspecified essential hypertension documented in this encounter Care Teams Head Of It Relationship Specialty Start Date End Date Alisha Kimball MD PCP - General 07/08/05 [address] [place] [address] documented as of this encounter
--- OUTSIDE RECORDS SUMMARY | 2022-04-07 07:25 | XMS_ITS | Encounter Summary ---
:1955 Author Organization [facility] Address [address] [place] [address] Care Team Providers Name Role Phone Alisha Kimball MD Primary Care Provider Encounter Details Date Type Department Care Team Description 05/04/2016 Lab Visit [facility] Essential hypertension [address] [place], [place] [address] Social History Tobacco Use [...] Diagnosis Comme nts CREATININE / GFR Routine 05/04/2016 3:49 PM Essential hyperten bobbi Results for this CDT procedure are i n the results section. POTASSIUM Routine 05/04/2016 3:49 PM Essential hypertension Results for this CDT procedure are i n the results section. documented in this encounter Results Creatinine / GFR (05/04/2016 [...] 05/04/2016 7:28 PM C DT Performed at [facility], [address] [place] [address] ??[id number] Alisha Kimball MD LAB_1 Performing Organization Address City/[facility] Phon e Number [facility] [phone] Potassium (05/04/2016 3:49 PM CDT) P athologist Signature Potassium 4.2 3.5 - 5.1 [facility] mmol/L Specimen Anatomical Collection Method Collection Time Receive d Time (Source) Location / / Volume Laterality 05/04/2016 3:49 PM 6 3:50 CDT PM CDT Narrative [facility] - 05/04/2016 7:28 PM C DT Performed at [facility], [address] [place] [address] ??[phone] Alisha Kimball MD LAB_1 Performing Organization Address [facility] Phon e Number [facility] [phone] documented in this encounter Visit Diagnoses Diagnosis Essential hypertension (HRC) Unspecified essential hypertension documented in this encounter Care Teams Instructor Bridge Relationship Specialty Start Date End Date Alisha Kimball MD PCP - General 07/08/05 [address] [place] [address] documented as of this encounter
--- OUTSIDE RECORDS SUMMARY | 2022-04-07 07:26 | XMS_ITS | Encounter Summary ---
:1955 Author Organization [employer] Address [address] [place] [address] Care Team Providers Name Role Phone Alisha Kimball MD Primary Care Provider Reason for Visit Reason Comments HTN MANAGEMENT AND EDUCATION Encounter Details Date Type Department Care Team Description 09/12/2015 Office Visit [facility] Tesha Maxwell, Essential hypertension (Prim levy Dx); [address] [facility] PharmD Diabetes mellitus, type 2 (HRC) [place] [address] [address] [facility] [phone] [place], [place] [address] Social History Tobacco Use Types Packs/Day Years Used Date Smoking Tobacco: Never Smokeless Tobacco: Never Alcohol Use Standard Drinks/Week Comments No 0 (1 standard drink = 0.6 oz pure alcoho l) Sex Assigned at Date Recorded Not on file documented as of this encounter Last Filed Vital Signs Vital Sign Reading Time Taken Comments Blood Pressure 132/94 09/12/2015 7:53 AM CLUB STEWARD Pulse 75 09/12/2015 7:53 AM CLUB STEWARD Temperature - - Respiratory Rate - - Oxygen Saturation - - Inhaled Oxygen Concentration - - Weight - - Height - - Body Mass Index - - documented in this encounter Patient Instructions Patient InstructionsPeTesha wallace PharmD - 09/12/2015 7:34 AM CST 1) Increase to amlodipine 10mg 1 tab nightly. 2) Monitor for lightheadedness, dizziness or lower leg swelling. 3) Goal blood pressure is less than 140/90. 4) Your follow-up visit is scheduled for October 09 at 8:00am. Please call me or e-mail if you have questions. Thanks, Tesha Maxwell PharmD [facility] on Wednesday & Wednesday [facility] on & Wednesday STEWARD documented in this encounter Progress Notes Tesha Maxwell PharmD - 09/12/2015 7:31 AM CST Sole Velasco is a 60 y.o. old female who was referred by [employer] for HTN management/education. Patient presents today for a blood pressure check. At last check patients blood pressure was high but she wanted to work on lifestyle modifications at that time. Today patient reports that she has been exercising and walking more, and is now up to 2 miles per day. Patient also has type II diabetesand reports that her blood sugars have been better than at time of last visit, with morning levels of 120s-130s. Patient took her blood pressure medication last night and reports no recent missed doses. However, today patients blood pressure was high on initial evaluation at 143/92. Upon the second check patient's systolic pressure dropped within goal but her diastolic was still elevated at 132/95. Pt denies dizziness, headache, chest pain/pressure, palpitations, constipation, muscle pain and edema Exercise: Reports increased walking daily and additional exercises 3 days per week. Diet:Going to work on trying to eat better Medication optimization: Patient reports missing a dose of medication in the past week: no O Adherence: Ability to assess medication adherence objectively: Able. According to VMAT, patient adherence is: Fair - > 80% adherent to majority of all chronic medications. ALLERGIES: Allergies Allergen Reactions ??? Sulfa Drugs Redness and Swelling PROBLEM LIST: Patient Active Problem List Diagnosis ??? Mallet Finger ??? Family history of osteoporosis ??? Diabetes mellitus, type 2 ??? Hypertension ??? Hypercholesterolemia ??? Heart palpitations History Smoking status ??? Never Smoker Smokeless tobacco ??? Never Used ASPIRIN USE: Yes BP 132/94 mmHg Pulse 75 BP Readings from Last 2 Encounters: 07/29/15 135/91 12/27/14 149/97 HGBA1C (%) Date Value 07/27/2015 7.2* Lab Results Component Value Date/Time TSH 1.465 10/30/2013 07:37 AM Estimated body mass index is 32.01 kg/(m^2) as calculated from the following: Height as of 11/05/14: 5' 4 (1.626 m). Weight as of 07/29/15: 186 lb 9.6 oz (84.641 kg). CHOL (mg/dl) Date Value 10/27/2014 139 HDL (mg/dl) Date Value 10/27/2014 39* LDL (mg/dl) Date Value 10/27/2014 87 TRI (mg/dl) Date Value 10/27/2014 63 10/30/2013 118 AST (U/L) Date Value 12/16/2012 31 ALT (U/L) Date Value 10/30/2013 52 BILIRUBINTOT (mg/dl) Date Value 12/16/2012 0.9 CREATININE (mg/dl) Date Value 08/24/2014 0.81 GFR (ml/min/1.73m2) Date Value 08/24/2014 >60 08/24/2014 >60 K (mmol/L) Date Value 08/24/2014 4.2 SODIUM (mmol/L) Date Value 08/24/2014 143 A BP goal :<140/90. Pt is not at goal. LDL goal: moderate intensity statin. Pt is at goal. HgbA1C goal: <8%. Pt is at goal. 1. HTN and amlodipine. Effectiveness - Dosage Too Low: dosage adjustment recommended Patient's blood pressure was elevated above goal on multiple evaluations. P 1. Per CPA patient's amlodipine was increased from 5 mg 1 tablet daily to 10 mg 1 tablet daily. 2. Patient was informed of potential side effects to look for with the dose increase like ankle swelling, dizziness, and/or lightheadedness. 3.A copy of the After Visit Summary was provided to patient, details were reviewed by me and all questions were answered. 4. Follow-up scheduled for October 09 at 8:00am Updated [employer] med list and reviewed medications including indications with patient. Total time spent with patient 30 minutes. Tesha Maxwell PharmD Clinical Pharmacist Medication Therapy Management Program STEWARD documented in this encounter Plan of Treatment Not on filedocumented as of this encounter Visit Diagnoses Diagnosis Essential hypertension (HRC) - Primary Unspecified essential hypertension Diabetes mellitus, type 2 (HRC) Type II or unspecified type diabetes dinora litus without mention of complication, not stated as uncontrolled documented in this encounter Care Teams Bank Reconciliator Relationship Specialty Start Date End Date Alisha Kimball MD PCP - General 07/08/05 [address] [place] [address] documented as of this encounter
--- OUTSIDE RECORDS SUMMARY | 2022-04-07 07:26 | XMS_ITS | Encounter Summary ---
:1955 Author Organization [employer] Address [address] [place] [address] Care Team Providers Name Role Phone Alisha Kimball MD Primary Care Provider Reason for Visit Reason Comments MEDICATION THERAPY MANAGEMENT SEGIP Encounter Details Date Type Department Care Team Description 11/05/2014 Office Visit [facility] Tesha Maxwell, Diabetes mellitus, type 2 (H RC) (Primary Dx); [address] PharmD Essential hypertension; [place] [address] [address] Hypercholesterolemia [phone] [place], [place] [id number] Social History Tobacco Use Types Packs/Day Years Used Date Smoking Tobacco: Never Smokeless Tobacco: Never Alcohol Use Standard Drinks/Week Comments No 0 (1 standard drink = 0.6 oz pure alcoho l) Sex Assigned at Date Recorded Not on file documented as of this encounter Last Filed Vital Signs Vital Sign Reading Time Taken Comments Blood Pressure 123/83 11/05/2014 2:08 PM CDT Pulse 76 11/05/2014 2:08 PM CDT Temperature - - Respiratory Rate - - Oxygen Saturation - - Inhaled Oxygen Concentration - - Weight - - Height - - Body Mass Index - - documented in this encounter Patient Instructions Patient InstructionsPeTesha wallace PharmD - 11/05/2014 2:09 PM CDT 1) Your diabetes, blood pressure and cholesterol control are all great at this time. 2) Watch for low blood sugars and symptoms. If you are noticing them we may need to further reduce your metformin. 3) Make an appointment with Medication Therapy Management Clinical Pharmacist in 6 month(s) for follow-up evaluation. Please call me or e-mail if you have questions. Thanks, Tesha Maxwell PharmD [facility] on Wednesday & Wednesday: [phone] [phone] [facility] on & Wednesday: [phone] [phone] documented in this encounter Progress Notes Tesha Maxwell PharmD - 11/05/2014 1:59 PM CDT S Loc Velasco is a 59 yr old female who was referred by [employer] for follow-up visit for diabetes management/education. Melia presents today for her 6 month follow-up. She is doing great. Sinceour last visit she has lost 20#, changed her diet and increased her exercise. Her blood sugars are excellent and her A1C is now 5.8. Patient has not had difficulty with hypoglycemia or hypoglycemic symptoms. About once weekly she notes rapid heart rate ~30-45 minutes after taking amlodipine and atorvastatin. To rule out possible side effect from amlodipine she will hold it per Alisha Kimball MD recommendation and watch for improvements. Today patient denies lower leg edema, hypoglycemia, increased bleeding/bruising. Medication optimization: Patient reports missing a dose of medication in the past week: no O Adherence: Ability to assess medication adherence objectively: Able. According to VMAT, patient adherence is: Good - > 80% adherent to all chronic medications. BP 123/83 Pulse 76 HGB A1C (%) Date Value 10/27/2014 5.8* LDL, CALC. (mg/dl) Date Value 10/27/2014 87 AST (SGOT) (U/L) Date Value 12/16/2012 31 ALT (SGPT) (U/L) Date Value 10/30/2013 52 BILIRUBIN, TOTAL (mg/dl) Date Value 12/16/2012 0.9 CREATININE (mg/dl) Date Value 08/24/2014 0.81 GFR EST IF (ml/min/1.73m2) Date Value 08/24/2014 >60 GFR, ESTIMATED (ml/min/1.73m2) Date Value 08/24/2014 >60 POTASSIUM (mmol/L) Date Value 08/24/2014 4.2 SODIUM (mmol/L) Date Value 08/24/2014 143 A BP goal :<140/90 Pt is at goal. LDL goal: medium intensity statin. Pt is at goal. HgbA1C goal: <7%. Pt is at goal. 1. Diabetes and Metformin. Safety - Adverse Drug Reaction: adverse reactions present, increased risk of hypoglycemia P 1) Stressed with continued weight loss and diet changes symptoms of hypoglycemia may increase. Patient aware of what symptoms to watch for and when to contact clinic. 2) A copy of the After Visit Summary was provided to patient, details were reviewed by me and all questions were answered. 3) Patient to make appointment with me in 6 month(s) for follow-up. Updated [employer] list and reviewed medications including indications with [...] hypercholesterolemia documented in this encounter Care Teams Systems Operator Relationship Specialty Start Date End Date Alisha Kimball MD PCP - General 07/08/05 [address] [place] [address] documented as of this encounter
--- OUTSIDE RECORDS SUMMARY | 2022-04-07 07:26 | XMS_ITS | Encounter Summary ---
:1955 Author Organization [facility] Address [address], [place] [address] Care Team Providers Name Role Phone Alisha Kimball MD Primary Care Provider Reason for Visit Reason Comments Refill Encounter Details Date Type Department Care Team Description 2015 Refill [facility] Alisha Remy MD Refill [address] [facility]. [address] [place] [address] [place], [place] [id number] (Wo rk) Social History Tobacco Use Types Packs/Day Years Used Date Smoking Tobacco: Never Smokeless Tobacco: Never Alcohol Use Standard Drinks/Week Comments No 0 (1 standard drink = 0.6 oz pure alcoho l) Sex Assigned at Date Recorded Not on file documented as of this encounter Nursing Notes Meaghan Briggs RN - 02/08/2015 9:09 AM CDT per standing order. Meaghan Briggs RN Interface, Out Surescripts Prov Query - 2015 9:48 PM CDT atorvastatin (AKA LIPITOR) 10 MG tablet [Pharmacy Med Name: ATORVASTATIN CALCIUM 10MG TABS] - REFILL: 12 months - PROTOCOL: Antilipid: HMG-CoA Reductase Inhibitors - RATIONALE: This refill should last until the patient is due for an office visit. - LAST QUALIFYING VISIT IN FAMILY PRACTICE: 12/27/2014 - NEXT SCHEDULED VISIT: None - LAST REFILLED ON: 12/09/2013, QTY: 90, Refills: 3, Sig: take 1 tablet by mouth daily. (changed butequivalent) - LDL: 87.0mg/dL on 10/27/2014 Powered by [employer], Reference: [id number], 2015 9:48:30 PM CDT, Pool: [place] REFILL RN ([id number]) documented in this encounter Plan of Treatment Not on filedocumented as of this encounter Visit Diagnoses Not on filedocumented in this encounter Care Teams Truck Headlight Assembler Relationship Specialty Start Date End Date Alisha Kimball MD PCP - General 07/08/05 [address] [place] [address] documented as of this encounter
--- OUTSIDE RECORDS SUMMARY | 2022-04-07 07:26 | XMS_ITS | Encounter Summary ---
:1955 Author Organization [employer] Address [address] [place] [address] Care Team Providers Name Role Phone Alisha Kimball MD Primary Care Provider Encounter Details Date Type Department Care Team Description 10/27/2014 Orders Only [place] Diabetes mellit us, type 2 ([facility]); Laboratory Hypercholesterolemia [address] [place] [address] Social History Tobacco Use Types [...] Diagnosis Comme nts LIPID PANEL AND Routine 10/27/2014 9:03 Hypercholesterolemia R esults for this DIRECT LDL(IF AM CDT procedure are in NEEDED) the results section. HGB A1C Routine 10/27/2014 9:03 Diabetes mellitus, type 2 Results for this AM CDT (HRC) procedure are i n the results section. documented in this encounter Results (ABNORMAL) LIPID PANEL AND DIRECT LDL(IF NEEDED) (10/27/2014 9:03 AM CDT) [facility] gist Method Time Signature Hours Fasting 12 hours [facility] Cholesterol 139 0 - 199 [facility] mg/dl [facility] Triglyceride 63 0 - 149 [facility] mg/dl [facility] HDL 39 (L) >40 mg/dl [facility] LDL, Calc. 87 0 - 129 [facility] mg/dl [facility] Non HDL Chol, 100 mg/dl [facility] Calc [facility] Specimen Anatomical Collection Method Collection Time Receive d Time (Source) Location / / Volume Laterality 10/27/2014 9:03 AM 5 9:04 CDT AM CDT Narrative [facility] - 10/29/2014 12:02 PM CDT Performed at [facility], [address] [place] [phone] Alisha Kimball MD LAB_1 Performing Organization Address [facility] Phon e Number [facility] [phone] (ABNORMAL) HGB A1C (10/27/2014 9:03 AM CDT) P athologist Signature Hgb A1c 5.8 (H) 4.3 - 5.6 [facility] % [...] Time (Source) Location / / Volume Laterality 10/27/2014 9:03 AM 5 9:04 CDT AM CDT Narrative [facility] - 10/29/2014 12:07 PM CDT Performed at [facility], [address] [place] [address] ??[phone] Alisha Kimball MD LAB_1 Performing Organization Address [facility] Phon e Number [facility] [phone] documented in this encounter Visit Diagnoses Diagnosis Diabetes mellitus, type 2 (HRC) Type II or unspecified type diabetes dinora litus without mention of complication, not stated as uncontrolled Hypercholesterolemia Pure hypercholesterolemia documented in this encounter Care Teams Housekeeping Director Relationship Specialty Start Date End Date Alisha Kimball MD PCP - General 07/08/05 [address] [place] [address] documented as of this encounter
--- OUTSIDE RECORDS SUMMARY | 2022-04-07 07:26 | XMS_ITS | Encounter Summary ---
:1955 Author Organization [employer] Address [address] [place] [address] Care Team Providers Name Role Phone Alisha Kimball MD Primary Care Provider Reason for Referral Procedure/Equipment (Routine) - Incomplete Specialty Diagnoses / Procedures Referred By Contact Refer red To Contact Procedures David Kat MD US PELVIS COMPLETE W IVT [address] (RH/HSC) [place] [address] Referral ID Status Reason Start Date Expiration Date Visits V isits Requested Authorized [id number] Incomplete 08/24/2014 1 1 E CONTROLLER Reason for Visit Reason Comments ABDOMINAL PAIN pain in lt overy area, hx hy sterectomy, mother had cervical cancer Encounter Details Date Type Department Care Team Description 08/24/2014 Office Visit [facility] David Kat Abdominal pa in, generalized (Primary Dx); Rakesh Lunsford MD Pelvic pain in female; [address] Abdominal bloating [place], [place] [id number] Social History Tobacco Use Types Packs/Day Years Used Date Smoking Tobacco: Never Smokeless Tobacco: Never Alcohol Use Standard Drinks/Week Comments No 0 (1 standard drink = 0.6 oz pure alcoho l) Sex Assigned at Date Recorded Not on file documented as of this encounter Last Filed Vital Signs Vital Sign Reading Time Taken Comments Blood Pressure 133/88 08/24/2014 9:35 AM GAUGE CONTROLLER Pulse 78 08/24/2014 9:35 AM GAUGE CONTROLLER Temperature 36.1 ??C (97 ??F) 08/24/2014 9:35 AM GAUGE CONTROLLER Respiratory Rate 14 08/24/2014 9:35 AM GAUGE CONTROLLER Oxygen Saturation 96% 08/24/2014 9:35 AM GAUGE CONTROLLER Inhaled Oxygen Concentration - - Weight 77.1 kg (170 lb) 08/24/2014 9:35 AM GAUGE CONTROLLER Height 162.6 cm (5' 4) 08/24/2014 9:35 AM GAUGE CONTROLLER Body Mass Index 29.18 08/24/2014 9:35 AM GAUGE CONTROLLER documented in this encounter Patient Instructions Patient InstructionsDavid Kat MD - 08/24/2014 10:08 AM CST Images from the original note were not included. Abdominal Pain: After Your Visit Your Care Instructions Abdominal pain has many possible causes. Some aren't serious and get better on their own in a few days. Others need more testing and treatment. If your pain continues or gets worse, you need to be rechecked and may need more tests to find out what is wrong. You may need surgery to correct the problem. Don't ignore new symptoms, such as fever, nausea and vomiting, urination problems, pain that gets worse, and dizziness. These may be signs of a more serious problem. Your doctor may have recommended a follow-up visit in the next 8 to 12 hours. If you are not gettingbetter, you may need more tests or treatment. The doctor has checked you carefully, but problems can develop later. If you notice any problems or new symptoms, get medical treatment right away. Follow-up care is a israel part of your treatment and safety. Be sure to make and go to all appointments, and call your doctor if you are having problems. It's also a good idea to know your test results and keep a list of the medicines you take. How can you care for yourself at home? ?? Rest until you feel better. ?? To prevent dehydration, drink plenty of fluids, enough so that your urine is light yellow or clear like water. Choose water and other caffeine-free clear liquids until you feel better. If you have kidney, heart, or liver disease and have to limit fluids, talk with your doctor before you increase the amount of fluids you drink. ?? If your stomach is upset, eat mild foods, such as rice, dry toast or crackers, bananas, and applesauce. Try eating several small meals instead of two or three large ones. ?? Wait until 48 hours after all symptoms have gone away before you have spicy foods, alcohol, and drinks that contain caffeine. ?? Do not eat foods that are high in fat. ?? Avoid anti-inflammatory medicines such as aspirin, ibuprofen (Advil, Motrin), and naproxen (Aleve). These can cause stomach upset. Talk to your doctor if you take daily aspirin for another health problem. When should you call for help? Call 911 anytime you think you may need emergency care. For example, call if: ?? You passed out (lost consciousness). ?? You pass maroon or very bloody stools. ?? You vomit blood or what looks like coffee grounds. ?? You have new, severe belly pain. Call your doctor now or seek immediate medical care if: ?? Your pain gets worse, especially if it becomes focused in one area of your belly. ?? You have a new or higher fever. ?? Your stools are black and look like tar, or they have streaks of blood. ?? You have unexpected vaginal bleeding. ?? You have symptoms of a urinary tract infection. These may include: ?? Pain when you urinate. ?? Urinating more often than usual. ?? Blood in your urine. ?? You are dizzy or lightheaded, or you feel like you may faint. Watch closely for changes in your health, and be sure to contact your doctor if: ?? You are not getting better after 1 day (24 hours). Where can you learn more? Go to [employer] and enter E907 in the search box. Current as of: December 06, 2013 Content Version: 10.3 ?? [id number] [employer]. E CONTROLLER documented in this encounter Progress Notes David Kat MD - 08/24/2014 9:58 AM CST HPI: Loc Velasco is a 59 yr old female presenting with a chief complaint of: 1) LLQ abdominal pain - Started on about Wednesday. Pain is a 5-6/10. Pain has been a soreness. Worsened with standing, sitting, and walking. No fevers, no N/V. No vaginal bleeding, no vaginal discharge. Patient states feeling some indigestion and bloating (bleching/burping). Still tolerating liquids/solids. Previous hysterectomy 15 years ago due to abnormal PAP, one residual ovary. Not a smoker. No abdominal trauma. A few episodes of loose stools on Wednesday, resolved. No blood in stools. No raw/uncooked meats. Patient has not traveled/traveled overseas recently, nor been around ill contacts thathave recently traveled. ROS: See above. All other systems were reviewed and were negative. O: VS:BP 133/88 Pulse 78 Temp(Src) 97 ??F (36.1 ??C) Resp 14 Ht 5' 4 (1.626 m) Wt 170 lb (77.111 kg) BMI 29.17 kg/m2 SpO2 96% HEENT: NC/AT. Anicteric. PERRL. EOM intact. TM's clear bilaterally. Nasal mucosa pink and moist, no septal deviation. No anterior/posterior cervical lymphadenopathy. Neck supple. CV: S1/S2 auscultated. No murmur. No rubs. No gallops. RESP: Normal respiratory effort. No use of accessory muscles. No acute respiratory distress. Clear to auscultation bilaterally. No wheezes, no rhonchi, no crackles. ABD: Soft, mild lower left pelvic pain. BS positive in 4 quadrants. No HSM. No palpable masses. No rebound/guarding. FEMALE GENITALIA: Normal external genitalia. Normal internal vaginal mucosa. No discharge present. No abnormalities to vaginal vault, no blood. No cervix present. Right adnexal tenderness (Sabina, [employer] present). EXT: No C/C/E. SKIN: Warm, dry. No apparent rashes or lesions. ASSESSMENT/PLAN: 1) Abdominal/pelvic pain - Check pelvic and abdominal US. Check lab work (See EPIC orders). Follow up in 2-[address] abdomen recommended, patient declined at this time. David Kat MD 08/24/2014, 9:58 AM E CONTROLLER documented in this encounter Plan of Treatment Not on filedocumented as of this encounter Results US PELVIS COMPLETE W IVT (RH/HSC) (08/24/2014 3:20 PM GAUGE CONTROLLER) Anatomical Region Laterality Modality Pelvis Ultrasound Specimen (Source) Anatomical Collection Method Collection Time Re ceived Time Location / / Volume Laterality 08/24/2014 3:20 PM GAUGE CONTROLLER Narrative 08/24/2014 4:34 PM GAUGE CONTROLLER US PELVIS COMPLETE W/IVT (UTERUS/OVARIES) 08/24/2014 3:20 PM INDICATION: Left lower quadrant pain TECHNIQUE: Transabdominal scans were per formed. Endovaginal ultrasound was performed to better visualize the adnexa . COMPARISON: None. FINDINGS: Uterus is surgically absent. The ovaries could not be seen on either side with either transabdominal or transvaginal images. No significant free fluid in the cul-de- sac. CONCLUSION: 1. ??Status post hysterectomy. 2. ??Nonvisualization of the ovaries. Procedure Note Leia Mora MD - 08/24/2014 US PELVIS COMPLETE W/IVT (UTERUS/OVARIES ) 08/24/2014 3:20 PM INDICATION: Left lower quadrant pain TECHNIQUE: Transabdominal scans were per formed. Endovaginal ultrasound was performed to better visualize the adnexa . COMPARISON: None. FINDINGS: Uterus is surgically absent. The ovaries could not be seen on either side with either transabdominal or transvaginal images. No significant free fluid in the cul-de- sac. CONCLUSION: 1. Status post hysterectomy. 2. Nonvisualization of the ovaries. David Kat MD RAD H. PYLORI IGG (08/24/2014 10:24 AM GAUGE CONTROLLER) Tvinci Method Time Signature H. pylori IgG Negative NEG [facility] Specimen Anatomical Collection Method Collection Time Receive d Time (Source) Location / / Volume Laterality 08/24/2014 10:24 08/24/2014 AM GAUGE CONTROLLER 10:25 AM GAUGE CONTROLLER Narrative [facility] - 08/27/2014 2:[address] Performed at [facility], [address] [place] [phone] David Kat MD LAB_1 Performing Organization Address City/State/ZIP Code Phon e Number [facility] [phone] URINE CULTURE (08/24/2014 10:24 AM GAUGE CONTROLLER) Component Value Ref Test Analysis Performed At Patholo gist Range Method Time Signature Specimen Urine [facility] Description Midstream [facility] Special Unspecified [facility] Requests [facility] Culture No Growth [facility] After 1 Day [facility] Report Status Final [facility] 08/25/2014 [facility] Specimen Anatomical Collection Method Collection Time Receive d Time (Source) Location / / Volume Laterality 08/24/2014 10:24 08/24/2014 AM GAUGE CONTROLLER 10:25 AM GAUGE CONTROLLER Narrative [facility] - 08/25/2014 1:[address] Performed at [facility] , [address] [place] [id number] David Kat MD LAB_1 Performing Organization Address City/[facility] Code Phon e Number [facility] [phone] (ABNORMAL) UA WITH MICRO (08/24/2014 10:24 AM GAUGE CONTROLLER) [facility] [employer] Method Time Signature Urine Color Yellow [facility] Urine Clarity Clear [facility] Sp Gr 1.015 1.005 - [facility] 1.030 [facility] Leuk Sml (A) NEG [facility] Nitr Negative NEG [facility] pH 5.5 4.5 - 8.0 [facility] Prot Negative NEG mg/dl [facility] Gluc Negative NEG [facility] Ket Negative NEG [facility] Urob 0.2 0.2 - 1.0 [facility] EU/dl [facility] Bili Negative NEG [facility] Blood Negative NEG [facility] RBC'S 0 0 - 3 [facility] /hpf [facility] WBC'S 0-2 0 - 5 [facility] /hpf [facility] Epith, Occ /hpf [facility] Squamous [facility] Bact 0 [facility] Casts 0 /lpf [facility] Comment Urine [facility] Cultured [facility] Other Unspun Micro [facility] Specimen Anatomical Collection Method Collection Time Receive d Time (Source) Location / / Volume Laterality 08/24/2014 10:24 08/24/2014 AM GAUGE CONTROLLER 10:25 AM GAUGE CONTROLLER Narrative [facility] - 08/24/2014 10:37 AM GAUGE CONTROLLER Performed at [facility], [address] [facility], [place], [place] ??[phone] David Kat MD LAB_1 Performing Organization Address City/State/ZIP Code Phon e Number [facility] [phone] (ABNORMAL) BASIC METABOLIC PANEL (08/24/2014 10:24 AM GAUGE CONTROLLER) Tv[employer]i Method Time Signature Sodium 143 135 - 145 [facility] mmol/L [facility] Potassium 4.2 3.5 - 5.3 [facility] mmol/L [facility] Chloride 99 95 - 106 [facility] mmol/L [facility] CO2 26 22 - 30 [facility] mmol/L [facility] Anion Gap 18 (H) 7 - 16 [facility] (calc.) mmol/L [facility] Glucose 106 70 - 180 [facility] mg/dl [facility] Calcium 9.9 8.4 - 10.2 [facility] mg/dl [facility] BUN 23 (H) 7 - 20 [facility] mg/dl [facility] Creatinine 0.81 0.52 - [facility] 1.04 mg/dl [facility] GFR, Estimated >60 >60 [facility] ml/min/1.7 [facility] 3m2 GFR, Est., If >60 >60 [facility] Black ml/min/1.7 [facility] 3m2 Specimen Anatomical Collection Method Collection Time Receive d Time (Source) Location / / Volume Laterality 08/24/2014 10:24 08/24/2014 AM GAUGE CONTROLLER 10:25 AM GAUGE CONTROLLER Narrative [facility] - 08/24/2014 2:[address] Performed at [facility], [address] [place] [phone] David Kat MD LAB_1 Performing Organization Address [facility] Phon e Number [facility] [phone] (ABNORMAL) C-REACTIVE PROTEIN (08/24/2014 10:24 AM GAUGE CONTROLLER) Patholo gist Method Time Signature C-Reactive 5.7 (H) 0.0 - 0.9 [facility] Protein mg/dl [facility] Comment: Note: results are expressed in mg/dL. Specimen Anatomical Collection Method Collection Time Receive d Time (Source) Location / / Volume Laterality 08/24/2014 10:24 08/24/2014 AM GAUGE CONTROLLER 10:25 AM GAUGE CONTROLLER Narrative [facility] - 08/24/2014 2:[address] Performed at [facility], [address] [place] [phone] David Kat MD LAB_1 Performing Organization Address City/[facility] Phon e Number [facility] [phone] HEMOGRAM/PLTS/DIFF (08/24/2014 10:24 AM GAUGE CONTROLLER) Analysis Performed At Patho logist Time Signature WBC 8.2 4.0 - 11.0 [facility] k/ul [facility] RBC 4.86 4.0 - 5.2 [facility] M/ul [facility] Hemoglobin 14.7 12.0 - [facility] 16.0 g/dl [facility] HCT 43.6 36.0 - [facility] 46.0 % [facility] MCV 90.0 80 - 100 [facility] fl [facility] MCH 30.2 26 - 34 pg [facility] MCHC 33.6 32 - 36 [facility] g/dl [facility] RDW 12.4 11.5 - [facility] 14.5 % [facility] Platelets 249 150 - 450 [facility] k/ul [facility] PMN/Band 66 % [facility] Lymph 24 % [facility] Noble 7 % [facility] Eos 2 % [facility] Baso 1 % [facility] Neutrophil 5.4 1.8 - 7.7 [facility] Absolute k/ul [facility] Lymph Absolute 2.0 1.0 - 4.8 [facility] k/ul [facility] Noble Absolute 0.6 0.1 - 0.7 [facility] k/ul [facility] Eos Absolute 0.2 0.0 - 0.5 [facility] k/ul [facility] Baso Absolute 0.1 0.0 - 0.2 [facility] k/ul [facility] Specimen Anatomical Collection Method Collection Time Receive d Time (Source) Location / / Volume Laterality 08/24/2014 10:24 08/24/2014 AM GAUGE CONTROLLER 10:25 AM GAUGE CONTROLLER Narrative [facility] - 08/24/2014 10:39 AM GAUGE CONTROLLER Performed at [facility], [address] [place], [place] ??[phone] David Kat MD LAB_1 Performing Organization Address City/State/ZIP Code Phon e Number [facility] [phone] documented in this encounter Visit Diagnoses Diagnosis Abdominal pain, generalized - Primary Pelvic pain in female Unspecified symptom associated with fema le genital organs Abdominal bloating Flatulence, eructation, and gas pain Abdominal pain, generalized documented in this encounter Care Teams Quality Process Lead Relationship Specialty Start Date End Date Alisha Kimball MD PCP - General 07/08/05 [address] [place] [address] documented as of this encounter
--- OUTSIDE RECORDS SUMMARY | 2022-04-07 07:26 | XMS_ITS | Encounter Summary ---
:1955 Author Organization [employer] Address [address] [place] [address] Care Team Providers Name Role Phone Alisha Kimball MD Primary Care Provider Reason for Visit Reason Comments ROUTINE HEALTH MAINTENANCE Diabetic Foot Assessment Health Maintanence Declined hiv and hep c Encounter Details Date Type Department Care Team Description 11/05/2014 Office Visit [facility] Alisha Kimball, [facility] (Primary Dx); Practice MD Diabetes mellitus, type 2 (HRC); [address] [place] [address] [place], [place] [phone] Social History Tobacco Use Types Packs/Day Years Used Date Smoking Tobacco: Never Smokeless Tobacco: Never Alcohol Use Standard Drinks/Week Comments No 0 (1 standard drink = 0.6 oz pure alcoho l) Sex Assigned at Date Recorded Not on file documented as of this encounter Last Filed Vital Signs Vital Sign Reading Time Taken Comments Blood Pressure 131/85 11/05/2014 8:16 AM CDT Pulse 58 11/05/2014 8:16 AM CDT Temperature 36.2 ??C (97.2 ??F) 11/05/2014 8:16 AM CDT Respiratory Rate 14 11/05/2014 8:16 AM CDT Oxygen Saturation - - Inhaled Oxygen Concentration - - Weight 73 kg (161 lb) 11/05/2014 8:16 AM CDT Height 162.6 cm (5' 4) 11/05/2014 8:16 AM CDT Body Mass Index 27.64 11/05/2014 8:16 AM CDT documented in this encounter Patient Instructions Patient InstructionsAlisha Kimball MD - 11/05/2014 8:10 AM CDT For diabetes: Decrease the metformin to 2 tabs in the morning. Let me know if your glucoses are creeping up. If you are doing well, please repeat the A1C in 3-4 months. The lab has orders and you can make a Lab Onlyappointment online or by calling [phone]. For blood pressure: Hold the amlodipine for 2-3 weeks. Let me know if you still have the palpitations. Well Visit, Women 50 to 65: After Your Visit Your Care Instructions Physical exams can help [...] your chances of quitting for good. ?? Always wear sunscreen on exposed skin. Make sure the sunscreen blocks ultraviolet rays (both UVA and UVB) and has a sun protection factor (SPF) of at least 15. Use it every day, even when it is cloudy. Some doctors may recommend a higher SPF, such as 30. ?? See a dentist one or two [...] heart attack and stroke. ?? Blood pressure. You will likely have your blood pressure checked at any visit to your doctor. If you are healthy and have a blood pressure below 120/80 mm Hg, have your blood pressure checked at least every 1 to 2 years. This can be done during a routine doctor visit. If you have slightly higher orhigh blood pressure, or are at risk for heart disease, your doctor will suggest more frequent tests. ?? Mammogram. Ask your doctor how often [...] concern you. Where can you learn more? Go to [employer] and enter Y074 in the search box. Current as of: October 26, 2013 Content Version: 10.3 ?? [id number] [employer]. documented in this encounter Progress Notes Alisha Kimball MD - 11/05/2014 8:30 AM CDT Routine Health Maintenance: Historical: Loc Velasco is a 59 yr old female Chief Complaint Patient presents with ??? ROUTINE HEALTH MAINTENANCE ??? Diabetic Foot Assessment ??? Health Maintanence Declined hiv and hep c Current concerns: Diabetes: Blood glucose records? yes, but did not bring records; patient estimate of fasting results: Test results for the last 1 week: lowest result highest result Fasting readings 80 94 Insulin? none In the last month have you experienced low blood sugar symptoms? no Do you... - exercise? 30 minutes or more, >5 times per week; Any chest pain, chest pressure or worsening shortness of breath? no - have difficulty taking medications as prescribed? no - miss any diabetes medication doses? never - drink sugared beverages (soda, fruit juice etc)? never - often feel depressed? no HGB A1C (%) Date Value 10/27/2014 5.8* LDL, CALC. (mg/dl) Date Value 10/27/2014 87 BP Readings from Last 3 Encounters: 11/05/14 131/85 08/24/14 133/88 05/21/14 126/89 History Smoking status ??? Never Smoker Smokeless tobacco ??? Never Used Intentional weight loss. Plans for more. Exercising a lot and good exercise tolerance. Has some stomach upset since going from metformin 1000 mg daily to 2000 mg daily. Also notes that about 30 minutes after taking the atorvastatin and amlodipine at night, about once per week or once every other week, she has racing heart that lasts about 2 minutes. No lightheadedness, syncope, chest pain, shortness of breath. She does not get this at any other time. Wonders if this is a side effect of either medication. Menses are: absent- hysterectomy Diet, fruits/ vegetables: 5 or more servings [...] surgical, family and social histories. Observed: BP 131/85 Pulse 58 Temp(Src) 97.2 ??F (36.2 ??C) (Tympanic) Resp 14 Ht 5' 4 (1.626 m) Wt 161 lb (73.029 kg) BMI 27.62 kg/m2 Estimated body mass index is 27.62 kg/(m^2) as calculated from the following: Height as of this encounter: 5' 4 (1.626 m). Weight as of this encounter: 161 lb (73.029 kg). General: Appears stated age, alert and comfortable HEENT: normal ears, eyes, throat, oropharynx Neck: supple. No LAD. No thyromegaly or mass. Lungs: clear to auscultation, no wheezes or rales Breasts: no skin changes, no dominant masses, no axillary lymphadenopathy CV: regular rate and rhythm, normal S1 and S2, without murmur, no carotid bruits Abd: Soft, non-tender, no masses, no hepatomegaly or splenomegaly. : pelvic exam not indicated Skin: no significant abnormalities noted Extremities: no cyanosis, clubbing, or edema. Feet in good repair. Normal sensation to monofilament testing bilaterally Assessment/Plan: ICD-9-CM 1. Preventative health care V70.0 2. Diabetes mellitus, type 2 250.00 MICROALB/CREAT RATIO DIABETIC FOOT CHECK (EP101) HGB A1C 3. Heart palpitations 785.1 Patient counseled: -protection from UV light -calcium and vitamin D recommendations 1. Type 2 diabetes. Good control. See the patient instructions. 2. Hypertension at goal. Unclear if the palpitations are a side effect from the amlodipine. Symptomsare infrequent. Discussed OK to hold the amlodipine for 2-3 weeks and see what happens with her symptoms. She will follow up prn new or worsening symptoms or other concerns. Alisha Kimball MD documented in this encounter Plan of Treatment Not on filedocumented as of this encounter Results MICROALB/CREAT RATIO (11/05/2014 8:58 AM CDT) [facility] gist Method Time Signature Albumin, <0.5 mg/dl [facility] Urine, Random [facility] Creatinine,Ur 63.6 mg/dl [facility] Alb/Creat <8 <30 mg/g [facility] Ratio, Urine, creatinine [facility] Random Specimen Anatomical Collection Method Collection Time Receive d Time (Source) Location / / Volume Laterality Urine specimen 11/05/2014 8:58 AM 015 8:59 (specimen) CDT AM CDT Narrative [facility] - 11/05/2014 1:39 PM C DT Performed at [facility], [address] [place] [phone] Alisha Kimball MD LAB_1 Performing Organization Address City/State/[facility] Phon e Number [facility] [phone] documented in this encounter Visit Diagnoses Diagnosis Preventative health care - Primary Routine general medical examination at a health care facility Diabetes mellitus, type 2 (HRC) Type II or unspecified type diabetes dinora litus without mention of complication, not stated as uncontrolled Heart palpitations Palpitations Diabetes mellitus, type 2 (HRC) Type II or unspecified type diabetes dinora litus without mention of complication, not stated as uncontrolled documented in this encounter Care Teams Escort Car Driver Relationship Specialty Start Date End Date Alisha Kimball MD PCP - General 07/08/05 [address] [place] [address] documented as of this encounter
--- OUTSIDE RECORDS SUMMARY | 2022-04-07 07:26 | XMS_ITS | Encounter Summary ---
:1955 Author Organization [facility] Address [address] [place] [address] Care Team Providers Name Role Phone Alisha Kimball MD Primary Care Provider Encounter Details Date Type Department Care Team Description 05/21/2014 Orders Only [facility] Alisha Kimball Hypercholes terolemia (Primary Dx); Rakesh Blevins MD Diabetes mellitus, type 2 [address] [facility]. [address] [place] [address] [facility] [phone] [place], [place] [id number] Social History Tobacco Use Types Packs/Day Years Used Date Smoking Tobacco: Never Smokeless Tobacco: Never Alcohol Use Standard Drinks/Week Comments No 0 (1 standard drink = 0.6 oz pure alcoho l) Sex Assigned at Date Recorded Not on file documented as of this encounter Plan of Treatment Not on filedocumented as of this encounter Results (ABNORMAL) LIPID PANEL AND DIRECT LDL(IF NEEDED) (10/27/2014 9:03 AM CDT) [facility] Method Time Signature Hours Fasting 12 hours [...] - 10/29/2014 12:02 PM CDT [facility], [address] [place] [address] ??[id number] Alisha Kimball MD LAB_1 Performing Organization Address [facility] Phon e Number [facility] [phone] (ABNORMAL) HGB A1C (10/27/2014 9:03 AM CDT) P athologist Signature Hgb A1c 5.8 (H) 4.3 - 5.6 [facility] % Comment: See (NOTE) For patients [...] AM 5 9:04 CDT AM CDT Narrative [facility] - 10/29/2014 12:07 PM CDT [facility]formed at [facility], [address] [place] [address] ??[id number] Alisha Kimball MD LAB_1 Performing Organization Address [facility] e Number [facility] [phone] documented in this encounter Visit Diagnoses Diagnosis Hypercholesterolemia - Primary Pure hypercholesterolemia Diabetes mellitus, type 2 (HRC) Type II or unspecified type diabetes dionra litus without mention of complication, not stated as uncontrolled Diabetes mellitus, type 2 (HRC) Type II or unspecified type diabetes dinora litus without mention of complication, not stated as uncontrolled Hypercholesterolemia Pure hypercholesterolemia documented in this encounter Care Teams Adjunct Mathematics Instructor Relationship Specialty Start Date End Date Alisha Kimball MD PCP - General 07/08/05 [address] [place] [address] documented as of this encounter
--- OUTSIDE RECORDS SUMMARY | 2022-04-07 07:26 | XMS_ITS | Encounter Summary ---
:1955 [address] [facility] Address [address], [place] [address] Care Team Providers Name Role Phone Alisha Kimball MD Primary Care Provider Reason for Visit Reason Comments JERSEY TREVINO MD ear pain Encounter Details Date Type Department Care Team Description 12/27/2014 Office Visit [facility] Treasure Pak (upper respiratory infection) (Primary Dx); Rakesh Mcmahon MD Sore throat [address] [facility] [address] [place] [address] [phone] Social History Tobacco Use Types Packs/Day Years Used Date Smoking Tobacco: Never Smokeless Tobacco: Never Alcohol Use Standard Drinks/Week Comments No 0 (1 standard drink = 0.6 oz pure alcoho l) Sex Assigned at Date Recorded Not on file documented as of this encounter Last Filed Vital Signs Vital Sign Reading Time Taken Comments Blood Pressure 149/97 12/27/2014 10:20 AM CDT Pulse 71 12/27/2014 10:20 AM CDT Temperature 36.4 ??C (97.6 ??F) 12/27/2014 10:20 AM CDT Respiratory Rate - - Oxygen Saturation - - Inhaled Oxygen Concentration - - Weight 73 kg (161 lb) 12/27/2014 10:20 AM CDT Height - - Body Mass Index 27.64 11/05/2014 8:16 AM CDT documented in this encounter Progress Notes Treasure Pak MD - 12/27/2014 11:46 AM CDT Subjective: 59-year-old female comes in complaining of over two week history of very sore throat. She was somewhat concerned about strep although this has gone on for a long time. Low-grade fever. Minimal cough. Some headache and facial tenderness. Mild postnasal drainage. Mostly is just a very sore throat. Sometimes into her right ear. After 2-1/2 weeks, just is not getting any better. Objective:BP 149/97 Pulse 71 Temp(Src) 97.6 ??F (36.4 ??C) (Tympanic) Wt 161 lb (73.029 kg) She appears well. Both tympanic membranes look okay. Oropharynx shows injection. No exudate. Neck is supple with tender nodes, especially on the left. Lungs are clear. Strep is negative. Assessment: Persistent pharyngitis symptoms. Plan: Given her history, I did go ahead and start her on amoxicillin 875 mg twice daily. Blood pressure was up today but she states that is just because she is not feeling well. She just had her physical within the last month or two and things were fine. She will continue to monitor. Call if symptoms are not improving. documented in this encounter Plan of Treatment Not on filedocumented as of this encounter Procedures Procedure Name Priority Date/Time Associated Diagnosis Comme nts STREP GRP A, RAPID Waiting 12/27/2014 10:27 AM Sore throat Re sults for this SCREEN CDT procedure are i n the results section. documented in this encounter Results STREP GRP A, RAPID SCREEN Perform a culture if negative screen?: No (12/27/2014 10:27 AM CDT) [facility] gist Method Time Signature Grp A Rapid Negative NEG [facility] Specimen Anatomical Collection Method Collection Time Receive d Time (Source) Location / / Volume Laterality 12/27/2014 10:27 12/27/2014 AM CDT 10:28 AM CDT Narrative [facility] - 12/27/2014 10:36 AM CDT Performed at [facility], [address] [place] [address] Treasure Pak MD LAB_1 Performing Organization Address City/State/ZIP Code Phon e Number [facility] [phone] documented in this encounter Visit Diagnoses Diagnosis URI (upper respiratory infection) - Prim levy Acute upper respiratory infections of un specified site Sore throat Acute pharyngitis documented in this encounter Care Teams Medical Data Analyst Relationship Specialty Start Date End Date Alisha Kimball MD PCP - General 07/08/05 [address] [place] [address] documented as of this encounter
--- OUTSIDE RECORDS SUMMARY | 2022-04-07 07:26 | XMS_ITS | Encounter Summary ---
:1955 Author Organization [facility] Address [address] [facility] [place] [address] Care Team Providers Name Role Phone Alisha Kimball MD Primary Care Provider Reason for Visit Reason Onset Date Comments Medication Questions 06/02/2014 Encounter Details Date Type Department Care Team Description 06/02/2014 Telephone [facility] Alisha Kimball MD Medication Questions Practice [address] [place] [address] [place], [place] [phone] Social History Tobacco Use Types Packs/Day Years Used Date Smoking Tobacco: Never Smokeless Tobacco: Never Alcohol Use Standard Drinks/Week Comments No 0 (1 standard drink = 0.6 oz pure alcoho l) Sex Assigned at Date Recorded Not on file documented as of this encounter Nursing Notes Valeria Villa - 06/12/2014 9:23 AM CST Lm Encounter closed ERCIAL REPORTER Alisha Kimball MD - 06/05/2014 5:28 PM CST Refill sent. Alisha Kimball MD ERCIAL REPORTER Tara Ricketts - 06/05/2014 3:59 PM CST Pt returned your call. She was on the bus, call dropped. Francesca Cash CMA - 06/05/2014 8:16 AM CST Provider to review and recommend Patient states the symptoms comes and goes. She stated she will get a gut ache from the metformin, and a blow out ( diarrhea) sometimes in bed. She can deal with these symptoms, the gut ache and blow outs only happen once in a while. She has no pills left due to doubling up. She is ok to stay on the metformin. It seems to be working. Francesca Cash CMA - 06/04/2014 11:15 AM CST Left message to call back. Alisha Frank MD - 06/04/2014 11:03 AM CST MTM note reviewed. How is her stomach upset with the metformin? Thanks! Alisha Kimball MD ERCIAL REPORTER Erlinda Dickerson RN - 06/04/2014 8:08 AM CST Last Visit: 10/30/13 See below Erlinda Dickerson RN ERCIAL REPORTER Jodi Dick - 06/02/2014 12:55 PM CST Patient states metformin dose has been increased. Pharmacy would need prescription to reflect new dose. Please review ERCIAL REPORTER documented in this encounter Plan of Treatment Not on filedocumented as of this encounter Visit Diagnoses Diagnosis Diabetes mellitus, type 2 (HRC) - Primar y Type II or unspecified type diabetes dinora litus without mention of complication, not stated as uncontrolled documented in this encounter Care Teams Scallop Cutter Relationship Specialty Start Date End Date Alisha Kimball MD PCP - General 07/08/05 [address] [place] [address] documented as of this encounter
--- OUTSIDE RECORDS SUMMARY | 2022-04-07 07:26 | XMS_ITS | Encounter Summary ---
:1955 Author Organization [employer] [facility] [employer] Address [address] [address] Care Team Providers Name Role Phone Alisha Kimball MD Primary Care Provider Reason for Visit Reason Comments PHARMACIST COUNSELING diabetes Encounter Details Date Type Department Care Team Description 05/23/2015 Pharmacy [facility] [place] [facility] PHARMACIST COUNSELING Pharmacy [address] [facility] (diabetes) [address] [place], [place] [phone] (Wo rk) Social History Tobacco Use Types Packs/Day Years Used Date Smoking Tobacco: Never Smokeless Tobacco: Never Alcohol Use Standard Drinks/Week Comments No 0 (1 standard drink = 0.6 oz pure alcoho l) Sex Assigned at Date Recorded Not on file documented as of this encounter Nursing Notes Brenton Pickard RPh - 05/24/2015 2:53 PM CST Medication-Related Problems Identified: No problem identified Pharmacist Action Items: No pharmacist action Additional Comments: Time spent assisting patient (in minutes): < 5 Encounter can be closed. Brenton Pickard 05/24/2015, 2:54 PM CASHIER Brenton Pickard RPh - 05/23/2015 12:53 PM CST Topic / Disease State: Diabetes: Clinic Pharmacy Diabetes Encounter Notes Loc Velasco was at [facility] to speak with the pharmacist about their diabetes. Optimal Diabetes Care results as follows: Guideline Goal Previous Result/Current Result A1c less than 8.0% HGBA1C (%) Date Value 10/27/2014 5.8* 05/21/2014 7.5* Blood Pressure 139/89 or lower BP Readings from Last 2 Encounters: 12/27/14 149/97 11/05/14 123/83 LDL 99 or lower LDL (mg/dl) Date Value 10/27/2014 87 10/30/2013 78 Tobacco use Tobacco Free reports that she has never smoked. She has never used smokeless tobacco. Please create two Diabetes Report Cards by going to the Letters section, generating and printing twocopies of the Rx Diabetes Report Card (18820). One copy will be provided to the patient and the second copy will be used to complete Epic documentation after patient consultation occurs. Patient at Goal? No. Please document using .rphdoc after speaking with the patient. CASHIER documented in this encounter Plan of Treatment Not on filedocumented as of this encounter Visit Diagnoses Not on filedocumented in this encounter Care Teams Extractor Plant Operator Relationship Specialty Start Date End Date Alisha Kimball MD PCP - General 07/08/05 [address] [place] [address] documented as of this encounter
--- OUTSIDE RECORDS SUMMARY | 2022-04-07 07:26 | XMS_ITS | Encounter Summary ---
:1955 Author Organization [facility] Address [address] [place] [address] Care Team Providers Name Role Phone Alisha Kimball MD Primary Care Provider Reason for Visit Reason Comments RESULTS, TEST Encounter Details Date Type Department Care Team Description 08/28/2014 Telephone Urgent Care David Rojas, RESULTS, TEST [address] [place]UAQUIN Aguilera [phone] Social History Tobacco Use Types Packs/Day Years Used Date Smoking Tobacco: Never Smokeless Tobacco: Never Alcohol Use Standard Drinks/Week Comments No 0 (1 standard drink = 0.6 oz pure alcoho l) Sex Assigned at Date Recorded Not on file documented as of this encounter Nursing Notes David Kat MD - 08/28/2014 5:19 PM CST Called patient with all lab/US results, patient feeling better. Patient appreciative of call. David Kat MD 08/28/2014, 5:20 PM E SAMPLE AND PATTERN SUPERVISOR documented in this encounter Plan of Treatment Not on filedocumented as of this encounter Visit Diagnoses Not on filedocumented in this encounter Care Teams Plant Health Care Technician Relationship Specialty Start Date End Date Alisha Kimball MD PCP - General 07/08/[address] [place], [place] [phone] documented as of this encounter
--- OUTSIDE RECORDS SUMMARY | 2022-04-07 07:26 | XMS_ITS | Encounter Summary ---
:1955 Author Organization Pending [facility] to [facility] Address [address] [place] [address] Care Team Providers Name Role Phone Alisha Kimball MD Primary Care Provider Reason for Referral Procedure/Equipment (Routine) - Incomplete Specialty Diagnoses / Procedures Referred By Contact Refer red To Contact Procedures Provider, Not On File MAMMOGRAM SCREENING BILATERAL [address] [place] [address] Referral ID Status Reason Start Date Expiration Date Visits V isits Requested Authorized [id number] Incomplete 11/05/2014 1 1 Reason for Visit Procedure/Equipment (Routine) - Incomplete Specialty Diagnoses / Procedures Referred By Contact Refer red To Contact Procedures Provider, Not On File MAMMOGRAM SCREENING BILATERAL [address] [place] [address] Referral ID Status Reason Start Date Expiration Date Visits V isits Requested Authorized [id number] Incomplete 11/05/2014 1 1 Encounter Details Date Type Department Care Team Description 11/05/[address] [facility] ury Mammography [address] [place], [place] [id number] Social History Tobacco Use Types Packs/Day Years [...] Associated Diagnosis Comme nts MM MAMMOGRAM Routine 11/05/2014 9:24 AM Results f or this SCREENING BILAT W CDT procedure are in CAD the results section. documented in this encounter Results MAMMOGRAM SCREENING BILATERAL (11/05/2014 9:24 AM CDT) Anatomical Region Laterality Modality Breast Bilateral Mammography Specimen (Source) Anatomical Location Collection Method / Collectio n Time Received Time / Laterality Volume Narrative 11/05/2014 3:20 PM CDT BILATERAL FULL FIELD DIGITAL SCREENING MAMMOGRAM Performed on 11/05/2014 Comparison: MAMMOGRAM SCREENING W/CAD BI LAT 11/01/13 and MAMMOGRAM SCREENING W/CAD BILAT 10/24/12. Findings: The breasts have scattered fib roglandular densities. There is no radiographic evidence of malignancy.This study was evaluated with the assistance of Computer-Aided Detection. ??Repeat routine screening mammogram in one year is recommended. ACR BI-RADS Category 1: Negative Not On File Provider RAD MIKEY documented in this encounter Visit Diagnoses Not on filedocumented in this encounter Care Teams Hand Driller Relationship Specialty Start Date End Date Alisha Kimball MD PCP - General 07/08/05 [address] [place] [address] documented as of this encounter
--- OUTSIDE RECORDS SUMMARY | 2022-04-07 07:26 | XMS_ITS | Encounter Summary ---
:1955 Author Organization [facility] Address [address] [place] [address] Care Team Providers Name Role Phone Alisha Kimball MD Primary Care Provider Encounter Details Date Type Department Care Team Description 11/30/2015 Lab Visit [place] Essential hyper tension; Laboratory Hypercholesterolemia (HRC); [address] [facility] Diabetes mellitus, type 2 (H RC) [place], [place] [address] Social History Tobacco Use Types Packs/Day Years Used Date Smoking Tobacco: Never Smokeless Tobacco: Never Alcohol Use Standard Drinks/Week Comments No 0 (1 standard drink = 0.6 oz pure alcoho l) Sex Assigned at Date Recorded Not on file documented as of this encounter Progress Notes Alisha Kimball MD - 12/03/2015 10:12 PM CDT Quick Note: Will discuss with the patient at her next visit 12/09/2015. Alisha Kimball MD documented in this encounter Plan of Treatment Not on filedocumented as of this encounter Procedures Procedure Name Priority Date/Time Associated Diagnosis Comme nts LIPID PANEL AND Routine 11/30/2015 9:08 Hypercholesterolemia ( HRC) Results for this DIRECT LDL(IF AM CDT procedure are in NEEDED) the results section. CREATININE / GFR Routine 11/30/2015 9:08 Essential hypertensio n Results for this AM CDT procedure are i n the results section. ALBUMIN/CREAT Routine 11/30/2015 9:08 Diabetes mellitus, type 2 Results for this RATIO AM CDT (HRC) procedure are i n the results section. HGB A1C Routine 11/30/2015 9:08 Diabetes mellitus, type 2 Results for this AM CDT (HRC) procedure are i n the results section. ALT (SGPT) Routine 11/30/2015 9:08 Diabetes mellitus, type 2 Results for this AM CDT (HRC) procedure are i n the results section. SODIUM Routine 11/30/2015 9:08 Essential hypertension Re sults for this AM CDT procedure are i n the results section. POTASSIUM Routine 11/30/2015 9:08 Essential hypertension Re sults for this AM CDT procedure are i n the results section. documented in this encounter Results MICROALB/CREAT RATIO (11/30/2015 9:08 AM CDT) Patholo gist Method Time Signature Albumin, 0.8 mg/dl [facility] Urine, [facility] Creatinine,Ur 178.3 mg/dl [facility] Alb/Creat 4 <30 mg/g [facility] Ratio, Urine, creatinine LAB[facility]ATORIES Random Specimen Anatomical Collection Method Collection Time Receive d Time (Source) Location / / Volume Laterality Urine specimen 11/30/2015 9:08 AM 2 016 9:30 (specimen) CDT AM CDT Narrative [facility] - 12/03/2015 2:50 PM C DT Performed at [facility], [address] [place] [address] ??[id number] Alisha Kimball MD LAB_1 Performing Organization Address [facility] Phon e Number [facility] [phone] (ABNORMAL) ALT (SGPT) (11/30/2015 9:08 AM CDT) P athologist Signature ALT (SGPT) 74 (H) 0 - 69 U/L [facility] Specimen Anatomical Collection Method Collection Time Receive d Time (Source) Location / / Volume Laterality 11/30/2015 9:08 AM 201 6 9:10 CDT AM CDT Narrative [facility] - 12/03/2015 12:22 PM CDT Performed at [facility], [address] [place] [address] ??[id number] Alisha Kimball MD LAB_1 Performing Organization Address City/[facility] Phon e Number [facility] [phone] (ABNORMAL) HGB A1C (11/30/2015 9:08 AM CDT) P athologist Signature Hgb A1c 7.3 (H) 4.3 - 5.6 [facility] % [...] Time (Source) Location / / Volume Laterality 11/30/2015 9:08 AM 6 9:10 CDT AM CDT Narrative [facility] - 12/03/2015 12:24 PM CDT Performed at [facility], [address] [place] [address] ??[phone] Alisha Kimball MD LAB_1 Performing Organization Address City/[facility] Phon e Number [facility] [phone] (ABNORMAL) LIPID PANEL AND DIRECT LDL(IF NEEDED) (11/30/2015 9:08 AM CDT) Patholo gist Method Time Signature Hours Fasting 14.0 hours [facility] Cholesterol 143 0 - 199 [facility] mg/dl [facility] Triglyceride 150 (H) 0 - 149 [facility] mg/dl [facility] HDL 41 >40 mg/dl [facility] LDL, Calc. 72 0 - 129 [facility] mg/dl [facility] Non HDL Chol, 102 mg/dl [facility] Calc [facility] Specimen Anatomical Collection Method Collection Time Receive d Time (Source) Location / / Volume Laterality 11/30/2015 9:08 AM 6 9:10 CDT AM CDT Narrative [facility] - 12/03/2015 12:22 PM CDT Performed at [facility], [address] [place] [address] ??[phone] Alisha Kimball MD LAB_1 Performing Organization Address [facility] Phon e Number [facility] [phone] SODIUM (11/30/2015 9:08 AM CDT) P athologist Signature Sodium 143 135 - 145 [facility] mmol/L Specimen Anatomical Collection Method Collection Time Receive d Time (Source) Location / / Volume Laterality 11/30/2015 9:08 AM 6 9:10 CDT AM CDT Narrative [facility] - 12/03/2015 12:22 PM CDT Performed at [facility], [address] [place] [address] ??[id number] Alisha Kimball MD LAB_1 Performing Organization Address City/[facility] Phon e Number [facility] [phone] POTASSIUM (11/30/2015 9:08 AM CDT) P athologist Signature Potassium 4.8 3.5 - 5.3 [facility] mmol/L Specimen Anatomical Collection Method Collection Time Receive d Time (Source) Location / / Volume Laterality 11/30/2015 9:08 AM 6 9:10 CDT AM CDT Narrative [facility] - 12/03/2015 12:22 PM CDT Performed at [facility], [address] [place] [address] ??[id number] Alisha Kimball MD LAB_1 Performing Organization Address [facility] Phon e Number [facility] [phone] CREATININE / GFR (11/30/2015 9:08 AM CDT) Analysis Performed At Patho logist Time Signature Creatinine 0.73 0.52 - [facility] 1.04 mg/dl [facility] GFR, Estimated >60 >60 [facility] ml/min/1.7 LAB[facility] 3m2 GFR, Est., If >60 >60 [facility] Black ml/min/1.7 LAB[facility] 3m2 Specimen Anatomical Collection Method Collection Time Receive d Time (Source) Location / / Volume Laterality 11/30/2015 9:08 AM 6 9:10 CDT AM CDT Narrative [facility] - 12/03/2015 12:22 PM CDT Performed at [facility], [address] [place] [address] ??[id number] Alisha Kimball MD LAB_1 Performing Organization Address City/[facility] Phon e Number [facility] [phone] documented in this encounter Visit Diagnoses Diagnosis Essential hypertension (HRC) Unspecified essential hypertension Hypercholesterolemia Pure hypercholesterolemia Diabetes mellitus, type 2 (HRC) Type II or unspecified type diabetes dinora litus without mention of complication, not stated as uncontrolled documented in this encounter Care Teams Admissions Supervisor Relationship Specialty Start Date End Date Alisha Kimball MD PCP - General 07/08/05 [address] [place] [address] documented as of this encounter
--- OUTSIDE RECORDS SUMMARY | 2022-04-07 07:26 | XMS_ITS | Encounter Summary ---
:1955 Author Organization Formerly [facility] Address [address] [place] [address] Care Team Providers Name Role Phone Alisha Kimball MD Primary Care Provider Reason for Referral Procedure/Equipment (Routine) - Incomplete Specialty Diagnoses / Procedures Referred By Contact Refer red To Contact Procedures Alisha Kimball MD MM Mammogram Screening Bilat [address] [place] [address] Referral ID Status Reason Start Date Expiration Date Visits V isits Requested Authorized [id number] Incomplete 01/08/2016 04/08/2017 1 1 Reason for Visit Procedure/Equipment (Routine) - Incomplete Specialty Diagnoses / Procedures Referred By Contact Refer red To Contact Procedures Alisha Kimball MD MM Mammogram Screening [address] [place] [address] Referral ID Status Reason Start Date Expiration Date Visits V isits Requested Authorized [id number] Incomplete 01/08/2016 04/08/2017 1 1 Encounter Details Date Type Department Care Team Description 01/08/2016 Imaging [facility] Mammography [address] [place] [address] Social History Tobacco Use Types [...] Associated Diagnosis Comme nts MM MAMMOGRAM Routine 01/08/2016 12:51 PM Results for this SCREENING BILAT W CDT procedure are in CAD the results section. documented in this encounter Results MM Mammogram Screening Bilat W CAD (01/08/2016 12:51 PM CDT) Anatomical Region Laterality Modality Breast Bilateral Mammography Specimen (Source) Anatomical Location Collection Method / Collectio n Time Received Time / Laterality Volume Narrative 01/09/2016 11:01 AM CDT BILATERAL FULL FIELD DIGITAL SCREENING MAMMOGRAM Performed on 01/08/2016 Comparison: MAMMOGRAM SCREENING W/CAD BI LAT 11/05/14, MAMMOGRAM SCREENING W/CAD BILAT 11/01/13 and MAMMOGRAM SCREEN ING W/CAD BILAT 10/24/12. Findings: The breasts have scattered fib roglandular densities. There is no radiographic evidence of malignancy.This study was evaluated with the assistance of Computer-Aided Detection. ??Repeat routine screening mammogram in one year is recommended. ACR BI-RADS Category 1: Negative Alisha Kimball MD RAD MIKEY documented in this encounter Visit Diagnoses Not on filedocumented in this encounter Care Teams Second Operator Relationship Specialty Start Date End Date Alisha Kimball MD PCP - General 07/08/05 [address] [place] [address] documented as of this encounter
--- OUTSIDE RECORDS SUMMARY | 2022-04-07 07:26 | XMS_ITS | Encounter Summary ---
:1955 Author [facility] Address [address] [place] [address] Care Team Providers Name Role Phone Alisha Kimball MD Primary Care Provider Reason for Visit Reason Comments LAB TESTS, NOS Encounter Details Date Type Department Care Team Description 11/20/2015 Telephone [facility] Alisha Steinberg MD LAB TESTS, NOS [address] [facility]. [address] [place] [address] [place] [address] [phone] (Wo rk) Social History Tobacco Use Types Packs/Day Years Used Date Smoking Tobacco: Never Smokeless Tobacco: Never Alcohol Use Standard Drinks/Week Comments No 0 (1 standard drink = 0.6 oz pure alcoho l) Sex Assigned at Date Recorded Not on file documented as of this encounter Nursing Notes Francesca Cho CMA - 11/20/2015 8:37 AM CDT Labs ordered Amanda Arce - 11/20/2015 8:24 AM CDT Patient on Lab Only Visit Schedule, no lab orders found in patient's chart. Please review and enter future lab orders or notify the patient that lab work is not needed. Lab Only Visit scheduled for: Patient coming to lab 11/29 for A1c. Thank you documented in this encounter Plan of Treatment Not on filedocumented as of this encounter Results MICROALB/CREAT RATIO (11/30/2015 9:08 AM CDT) Patholo gist Method Time Signature Albumin, 0.8 mg/dl [facility] Urine, [facility] Creatinine,Ur 178.3 mg/dl [facility] Alb/Creat 4 <30 mg/g [facility] Ratio, Urine, creatinine [facility] Random Specimen Anatomical Collection Method Collection Time Receive d Time (Source) Location / / Volume Laterality Urine specimen 11/30/2015 9:08 AM 016 9:30 (specimen) CDT AM CDT Narrative [facility] - 12/03/2015 2:50 PM C DT Performed at [facility], [address] [place] [address] ??[id number] Alisha Kimball MD LAB_1 Performing Organization Address [facility] Phon e Number [facility] [phone] (ABNORMAL) ALT (SGPT) (11/30/2015 9:08 AM CDT) athologist Signature ALT (SGPT) 74 (H) 0 - 69 U/L [facility] Specimen Anatomical Collection Method Collection Time Receive d Time (Source) Location / / Volume Laterality 11/30/2015 9:08 AM 6 9:10 CDT AM CDT Narrative [facility] - 12/03/2015 12:22 PM CDT Performed at [facility], [address] [place] [address] ??[id number] Alisha Kimball MD LAB_1 Performing Organization Address [facility] Phon e Number [facility] [phone] (ABNORMAL) HGB A1C (11/30/2015 9:08 AM CDT) [...] - 12/03/2015 12:24 PM CDT Performed at [facility], [address] [place] [address] ??[id number] Alisha Kimball MD LAB_1 Performing Organization Address [facility] Phon e Number [facility] [phone] (ABNORMAL) LIPID PANEL AND DIRECT LDL(IF NEEDED) [...] - 12/03/2015 12:22 PM CDT Performed at [facility], [address] [place] [address] ??[phone] Alisha Kimball MD LAB_1 Performing Organization Address [facility] Phon e Number [facility] [phone] SODIUM (11/30/2015 9:08 AM CDT) P athologist Signature Sodium 143 135 - 145 [facility] mmol/L Specimen Anatomical Collection Method Collection Time Receive d Time (Source) Location / / Volume Laterality 11/30/2015 9:08 AM 6 9:10 CDT AM CDT Narrative [facility] - 12/03/2015 12:22 PM CDT Performed at [facility], [address] [place] [address] ??[id number] Alisha Kimball MD LAB_1 Performing Organization Address [facility]/ZIP Code Phon e Number [facility] [phone] POTASSIUM (11/30/2015 9:08 AM CDT) P athologist Signature Potassium 4.8 3.5 - 5.3 [facility] mmol/L Specimen Anatomical Collection Method Collection Time Receive d Time (Source) Location / / Volume Laterality 11/30/2015 9:08 AM 6 9:10 CDT AM CDT Narrative [facility] - 12/03/2015 12:22 PM CDT Performed at [facility], [address] [place] [address] ??[id number] Alisha Kimball MD LAB_1 Performing Organization Address [facility] Code Phon e Number [facility] [phone] CREATININE / GFR (11/30/2015 9:08 AM CDT) [...] - 12/03/2015 12:22 PM CDT Performed at [facility], [address] [place] [address] ??[id number] Alisha Kimball MD LAB_1 Performing Organization Address [facility] Phon e Number [facility] [phone] documented in this encounter Visit Diagnoses Diagnosis Essential hypertension (HRC) - Primary Unspecified essential hypertension Hypercholesterolemia Pure hypercholesterolemia Diabetes mellitus, type 2 (HRC) Type II or unspecified type diabetes dinora litus without mention of complication, not stated as uncontrolled Essential hypertension (HRC) Unspecified essential hypertension Hypercholesterolemia Pure hypercholesterolemia Diabetes mellitus, type 2 (HRC) Type II or unspecified type diabetes dinora litus without mention of complication, not stated as uncontrolled documented in this encounter Care Teams Planting Material Remover Relationship Specialty Start Date End Date Alisha Kimball MD PCP - General 07/08/05 [address] [place] [address] documented as of this encounter
--- OUTSIDE RECORDS SUMMARY | 2022-04-07 07:26 | XMS_ITS | Encounter Summary ---
:1955 Author Organization [facility] Address [address] [place] [address] Care Team Providers Name Role Phone Alisha Kimball MD Primary Care Provider Reason for Visit Reason Comments MEDICATION THERAPY MANAGEMENT Encounter Details Date Type Department Care Team Description 07/29/2015 Office Visit [facility] Tesha Maxwell, Diabetes mellitus, type 2 (H RC) (Primary Dx); [address] PharmD Essential hypertension; [place] [address] [address] Hypercholesterolemia (HRC) [phone] [place] [address] Social History Tobacco Use Types Packs/Day Years Used Date Smoking Tobacco: Never Smokeless Tobacco: Never Alcohol Use Standard Drinks/Week Comments No 0 (1 standard drink = 0.6 oz pure alcoho l) Sex Assigned at Date Recorded Not on file documented as of this encounter Last Filed Vital Signs Vital Sign Reading Time Taken Comments Blood Pressure 135/91 07/29/2015 8:03 AM UNDERWRITING MANAGER Pulse 72 07/29/2015 8:03 AM UNDERWRITING MANAGER Temperature - - Respiratory Rate - - Oxygen Saturation - - Inhaled Oxygen Concentration - - Weight 84.6 kg (186 lb 9.6 oz) 07/29/2015 7:51 AM UNDERWRITING MANAGER Height - - Body Mass Index 32.03 11/05/2014 8:16 AM CDT documented in this encounter Patient Instructions Patient InstructionsTesha Maxwell, PharmD - 07/29/2015 7:49 AM CST 1) Your blood pressure is running slightly high today. This will continue to improve with weight loss and diet improvements. 2) I will let you know what your A1C is when it is available. 3) Your follow-up blood pressure check is scheduled for August 30 at 8:00am at the [facility] Please call me or e-mail if you have questions. Thanks, Tesha Maxwell PharmD [facility] on Wednesday & Wednesday [facility] on & Wednesday RWRITING MANAGER documented in this encounter Progress Notes Tesha Maxwell PharmD - 07/29/2015 7:47 AM CST Sole Velasco is a 60 y.o. old female who was referred by Employer group for diabetes management/education. Melia presents today for follow-up. Since our last visit she has gained back all the weightshe lost, but is working to take it back off. She has noted her morning blood sugars have increased,but afternoon and post workout numbers remain goal range. A1C results are still pending from a . Morning sugars per patient are running in the 120-130 range, otherwise all other reading well within goal. On her own she reduced her metformin dosage to 1000mg then 1500mg daily due to stomach upset at the 2000mg daily dosage. Blood pressure remains slightly elevated, likely secondary to weight gain. Patient requesting 1 month of continued lifestyle changes vs increasing amlodipine dosage at this time. States no missed dosesof amlodipine. Patient continues on atorvastatin 10mg and aspirin 81mg daily. Pt denies dizziness, headache, fatigue, chest pain/pressure, palpitations, cough , heartburn/reflux,nausea, constipation, diarrhea, muscle pain, numbness or tingling, edema, bruising, bleeding and hypoglycemia Exercise: restarted walking daily ~1.5 miles per day Diet:fine tuning to reduce sodium and carbohydrates again Medication optimization: Patient reports missing a dose of medication in the past week: yes O Adherence: Ability to assess medication adherence [...] visit. BP Readings from Last 2 Encounters: 12/27/14 149/97 11/05/14 123/83 HGBA1C (%) Date Value 10/27/2014 5.8* Lab Results Component Value Date/Time TSH 1.465 10/30/2013 07:37 AM Estimated body mass index is 27.62 kg/(m^2) as calculated from the following: Height as of 11/05/14: 5' 4 (1.626 m). Weight as of 12/27/14: 161 lb (73.029 kg). CHOL (mg/dl) Date Value 10/27/2014 139 [...] Dosage Too Low: dosage adjustment recommended 2. Diabetes and Metformin. Adherence: patient prefers not to take as prescribed P 1) Will allow 1 month of improved lifestyle/diet. If BP remains elevated in 1 month will increase toamlodipine 10mg daily. 2) Encouraged patient to increase to metformin XL 500mg 2 tabs twice daily. Okay to split dosing if this helps improve GI tolerance. Patient verbalizes understanding. 3) Will contact patient when A1C is available to review. 4) A copy of the After Visit Summary was provided to patient, details were reviewed by me and all questions were answered. 5) Follow-up BP check scheduled for August 30 at 8:00am. Updated [employer] med list and reviewed medications including indications with patient. Total time spent with patient 30 minutes. Tesha Maxwell PharmD Clinical Pharmacist Medication Therapy Management Program RWRITING MANAGER documented in this encounter Plan of Treatment Not on filedocumented as of this encounter Visit Diagnoses Diagnosis Diabetes mellitus, type 2 (HRC) - Primar y Type II or unspecified type diabetes dinora litus without mention of complication, not stated as uncontrolled Essential hypertension (HRC) Unspecified essential hypertension Hypercholesterolemia Pure hypercholesterolemia documented in this encounter Care Teams Equipment Driver Relationship Specialty Start Date End Date Alisha Kimball MD PCP - General 07/08/05 [address] [place] [address] documented as of this encounter
--- OUTSIDE RECORDS SUMMARY | 2022-04-07 07:26 | XMS_ITS | Encounter Summary ---
:1955 Author Organization [facility] Address [address] [place] [address] Care Team Providers Name Role Phone Carroll Avalos MD Primary Care Provider Reason for Visit Reason Comments Medication Questions amlodipine 10 mg Encounter Details Date Type Department Care Team Description 01/08/2016 Telephone [facility] Carroll Avalos MD Medication Questions Practice [address] (amlodipine 10 mg) [address] [place] [address] [place] [address] [phone] Social History Tobacco Use Types Packs/Day Years Used Date Smoking Tobacco: Never Smokeless Tobacco: Never Alcohol Use Standard Drinks/Week Comments No 0 (1 standard drink = 0.6 oz pure alcoho l) Sex Assigned at Date Recorded Not on file documented as of this encounter Progress Notes Carroll Avalos MD - 01/13/2016 1:19 PM CDT Addended by: CARROLL AVALOS on: 01/13/2016 01:19 PM Modules accepted: Orders, Medications documented in this encounter Nursing Notes Carroll Avaols MD - 01/13/2016 1:19 PM CDT OK. See orders. Carroll Avalos MD Sabina Oneill - 01/10/2016 8:13 AM CDT Patient called back and she would like to have the 5 mg and in a 90 day supply. Sabina Oneill 01/10/2016, 8:14 AM Veronica Darden - 01/09/2016 4:48 PM CDT Patient is returning call. Please try back. Francesca Cho CMA - 01/09/2016 4:10 PM CDT Left message to call back. Carroll Avalos MD - 01/09/2016 9:24 AM CDT Per 12/09/2015 visit, 1/ tab (5 mg). Carroll Avalos MD Veronica Thompson - 01/08/2016 4:37 PM CDT RE: the new rx written September 2015 for amlodipine 10 mg one qd. The patient stated she's taking one-half tablet. After reviewing note from office visit it appears that she should be taking the whole 10 mg tablet. Can you reach out to the patient and verify/clarify, as her BP did appear elevated at thatvisit. documented in this encounter Plan of Treatment Not on filedocumented as of this encounter Visit Diagnoses Not on filedocumented in this encounter Care Teams Environmental Advisor Relationship Specialty Start Date End Date Carroll Avalos MD PCP - General 07/08/[address] [place] [address] documented as of this encounter
--- OUTSIDE RECORDS SUMMARY | 2022-04-07 07:26 | XMS_ITS | Encounter Summary ---
:1955 Author Organization [facility] Address [address] [place] [address] Care Team Providers Name Role Phone Alisha Kimball MD Primary Care Provider Reason for Visit Reason Comments Routine Eye Exam RAMIN 2012 Dr Alfaro. Only we ars +1.75 OTC readers- works well. DVA stable. No eye pain. Use s Systane 2x/day for eye dryness. Diabetic Exam, Yearly Type II, Last A1C on 11/2015 at 7.3. Bs today at 120. Encounter Details Date Type Department Care Team Description 01/08/2016 Office Visit [facility] Abraham Rivas, Visit for eye and vision exa m (Primary Dx); [address] OD Presbyopia; [place] [address] Type 2 diabetes mellitus without complic ations ([facility]) [phone] [place] [address] Social History Tobacco Use Types Packs/Day Years Used Date Smoking Tobacco: Never Smokeless Tobacco: Never Alcohol Use Standard Drinks/Week Comments No 0 (1 standard drink = 0.6 oz pure alcoho l) Sex Assigned at Date Recorded Not on file documented as of this encounter Patient Instructions Patient InstructionsAbraham Rivas, OD - 01/08/2016 1:47 PM CDT Cataracts and cataract surgery A cataract is a clouding of the lens of the eye. This change is very common and usually related to aging. The eye works like a camera. A cloudy lens will make the ???pictures?? blurred. The main treatment for cataract is surgery. The time for surgery is when vision interferes with daily activities enough to warrant the risks of surgery. Until that time, patients can live with their vision as it is or try a new eyeglass prescription. Most people have plenty of time to decide about surgery. Your doctor cannot decide for you. Examples of the problems that cataract might cause include difficulty reading the newspaper, troublewith glare when driving at night, or blurry vision with a hobby or other pastime. A decision for surgery would follow a discussion of the risks, benefits, potential complications andalternatives with your security control assessor. Fortunately, complications from cataract surgery are relatively uncommon, but certainly risk can occur, such as bleeding, swelling, infection, irregular appearance of the pupil, the need for more surgery, loss of vision, and complications of anesthesia. Surgery is usually done as an outpatient (you go home the same day). Typically patients are at the surgery between 2 and 3 hours ???door to door?? . Of that time about 30 minutes is spent in the operating room. Following surgery, eye drops are prescribed for a few weeks to assist in healing. When thehealing is stable, a measurement is made for new glasses. Surgery is only done for 1 eye at a time. Cataract surgery is usually a very successful operation. More than one million people have this procedure every year in the [place] , and 95% have a successful result. Helpful Websites: http://www.nei.nih.gov/health http://www.eyesurgeryeducation.com/ Diabetes and the Eyes Over time, high blood sugars can damage blood vessels in an area of the back of the eye called the retina. When thinking of the eye like a camera, the retina is like the film, which takes the light andsends the image to the brain. The damage to blood vessels in the retina is referred to as diabetic retinopathy. The changes that take place can include: * Abnormal narrowing and thickening of the blood vessels * Fluid swelling of the retina * Growth of new and abnormal blood vessels that cause scarring * Bleeding into the center part of the eye * Complete loss of areas of blood vessels The vision at any given time may or may not be normal. Therefore it is very important that any person diagnosed with diabetes have a yearly eye exam with dilated pupils to check for these changes and try to prevent any worsening that may even cause blindness. Treatments for diabetic retinopathy can include: * Laser to stop abnormal blood vessels * Vitrectomy to remove the gel-like substance that fills the inside of the eye * Injection of medicines in or near the eye to reduce swelling People with diabetes should schedule examinations at least once a year. More frequent medical eye examinations may be necessary after a diagnosis of diabetic retinopathy. If you have diabetes, early detection of diabetic retinopathy is the best protection against loss ofvision. You can significantly lower your risk of vision loss by maintaining strict control of your blood sugar and blood pressure and visiting your eye doctor regularly. documented in this encounter Progress Notes Abraham Rivas, OD - 01/08/2016 1:47 PM CDT HPI Chief Complaint Patient presents with ??? Routine Eye Exam RAMIN 2012 Dr Alfaro. Only wears +1.75 OTC readers- works well. DVA stable. No eye pain. Uses Systane 2x/day for eye dryness. ??? Diabetic Exam, Yearly Type II, Last A1C on 11/2015 at 7.3. Bs today at 120. Routine Eye Exam Loc Velasco is a 60 y.o. year old female here for a routine eye exam. The last eye exam was on 06/30 at [facility] Dr. alfaro Diabetes is Type II (adult) and is managed by oral meds. HGBA1C (%) Date Value 11/30/2015 7.3* 07/27/2015 7.2* 10/27/2014 5.8* Assessment No DR< presbyopia Plan Spectacle Prescription: see script Return to clinic in 1 year(s) Abraham Rivas OD Franci Resendiz - 01/08/2016 1:21 PM CDT 1:21 PM documented in this encounter Plan of Treatment Not on filedocumented as of this encounter Visit Diagnoses Diagnosis Visit for eye and vision exam - Primary Examination of eyes and vision Presbyopia Type 2 diabetes mellitus without complic ations (HRC) Type II or unspecified type diabetes dinora litus without mention of complication, not stated as uncontrolled documented in this encounter Care Teams Booster Plant Operator Relationship Specialty Start Date End Date Alisha Kimball MD PCP - General 07/08/05 [address] [place] [address] documented as of this encounter
--- OUTSIDE RECORDS SUMMARY | 2022-04-07 07:26 | XMS_ITS | Encounter Summary ---
:1955 Author Organization [facility] Address [address] [place] [address] Care Team Providers Name Role Phone Alisha Kimball MD Primary Care Provider Reason for Visit Reason Comments Refill Encounter Details Date Type Department Care Team Description 09/11/2014 Refill [facility] Alisha Steinberg MD Refill [address] [facility]. [address] [place] [address] [place], [place] [id number] (Wo rk) Social History Tobacco Use Types Packs/Day Years Used Date Smoking Tobacco: Never Smokeless Tobacco: Never Alcohol Use Standard Drinks/Week Comments No 0 (1 standard drink = 0.6 oz pure alcoho l) Sex Assigned at Date Recorded Not on file documented as of this encounter Nursing Notes Erlinda Dickerson RN - 09/11/2014 12:32 PM CDT Refilled per standing orders. Erlinda Dickerson RDagoberto Interface, Out Surescripts Prov Query - 09/11/2014 7:15 AM CDT ACCU-CHEK STACEY PLUS strip [Pharmacy Med Name: ACCU-CHEK STACEY PLUS STRP] - REFILL: 12 months (manual update required, due to unreadable sig) - PROTOCOL: Diabetes Supplies - RATIONALE: This refill should last until the patient is due for an office visit. - LAST QUALIFYING VISIT IN FAMILY PRACTICE: 08/24/2014 - NEXT SCHEDULED VISIT: None - LAST REFILLED ON: 10/31/2012, QTY: 100, Refills: 0, Sig: two times a day. (changed) Powered by [employer], Reference: [id number], 09/11/2014 7:15:14 AM CDT, Pool: ARNOLD AMEZQUITA RN ([id number]) documented in this encounter Plan of Treatment Not on filedocumented as of this encounter Visit Diagnoses Not on filedocumented in this encounter Care Teams Head Mechanic Relationship Specialty Start Date End Date Alisha Kimball MD PCP - General 07/08/05 [address] [place] [address] documented as of this encounter
--- OUTSIDE RECORDS SUMMARY | 2022-04-07 07:26 | XMS_ITS | Encounter Summary ---
:1955 Author Organization [facility] Address [address] [place] [address] Care Team Providers Name Role Phone Alisha Kimball MD Primary Care Provider Reason for Visit Reason Comments LAB TESTS, NOS Encounter Details Date Type Department Care Team Description 07/25/2015 Telephone [facility] Alisha Steinberg MD LAB TESTS, NOS [address] [facility]. [address] [place] [address] [place] [address] [phone] (Wo rk) Social History Tobacco Use Types Packs/Day Years Used Date Smoking Tobacco: Never Smokeless Tobacco: Never Alcohol Use Standard Drinks/Week Comments No 0 (1 standard drink = 0.6 oz pure alcoho l) Sex Assigned at Date Recorded Not on file documented as of this encounter Nursing Notes Francesca Cho CMA - 07/25/2015 8:07 AM CST Lab ordered EMENTATION ENGINEER Yudy Werner - 07/25/2015 8:04 AM CST Patient on Lab Only Visit Schedule, no lab orders found in patient's chart. Please review and enter Future Lab Orders or notify the patient that lab work is not needed. Lab Only Visit scheduled for:07-27-15 After placing Future Orders, please route this Telephone Encounter to the following pool: AV LAB -A1C EMENTATION ENGINEER documented in this encounter Plan of Treatment Not on filedocumented as of this encounter Results (ABNORMAL) HGB A1C (07/27/2015 9:21 AM IMPLEMENTATION ENGINEER) P athologist Signature Hgb A1c 7.2 (H) [...] Time (Source) Location / / Volume Laterality 07/27/2015 9:21 AM 6 9:23 IMPLEMENTATION ENGINEER AM IMPLEMENTATION ENGINEER Narrative [facility] - 07/29/2015 11:47 AM IMPLEMENTATION ENGINEER Performed at [facility], [address] [place] [address] ??[id number] Alisha Kimball MD LAB_1 Performing Organization Address City/State[place] [facility] [place] [facility] [phone] documented in this encounter Visit Diagnoses Diagnosis Diabetes mellitus, type 2 (HRC) - Primar y Type II or unspecified type diabetes dinora litus without mention of complication, not stated as uncontrolled Diabetes mellitus, type 2 (HRC) Type II or unspecified type diabetes dinora litus without mention of complication, not stated as uncontrolled documented in this encounter Care Teams Registered Art Therapist Relationship Specialty Start Date End Date Alisha Kimball MD PCP - General 07/08/05 [address] [place] [address] documented as of this encounter
--- OUTSIDE RECORDS SUMMARY | 2022-04-07 07:26 | XMS_ITS | Encounter Summary ---
:1955 Author Organization [facility] Address [address] [facility] [place] [address] Care Team Providers Name Role Phone Alisha Kimball MD Primary Care Provider Reason for Visit Reason Comments Medication Questions Encounter Details Date Type Department Care Team Description 01/02/2015 Telephone [facility] Alisha Kimball MD Medication Questions Medicine [address] [place] [address] [place], [place] [id number] [phone] Social History Tobacco Use Types Packs/Day Years Used Date Smoking Tobacco: Never Smokeless Tobacco: Never Alcohol Use Standard Drinks/Week Comments No 0 (1 standard drink = 0.6 oz pure alcoho l) Sex Assigned at Date Recorded Not on file documented as of this encounter Nursing Notes Tesha Maxwell PharmD - 01/02/2015 10:37 AM CDT RX for new lancets to fit new Accucheck Plus lancet device. Patient will pick out hand when able. Tesha Maxwell PharmD 01/02/2015, 10:37 AM TOT Tara Ricketts - 01/02/2015 10:20 AM CDT Patient would like to speak to his provider Name of patient's provider: Tesha Maxwell Summarize the patient's question or concern: patient has an Edilma plus monitor and the lancets she has used in the past don't work with this monitor. Please order the correct lancets. She is out and does not know what to use instead. Is it okay to leave detailed message on your voicemail? yes If after 3pm, can this wait until tomorrow? today Tara Ricketts documented in this encounter Plan of Treatment Not on filedocumented as of this encounter Visit Diagnoses Not on filedocumented in this encounter Care Teams Press Shop Supervisor Relationship Specialty Start Date End Date Alisha Kimball MD PCP - General 07/08/05 [address] [place] [address] documented as of this encounter
--- OUTSIDE RECORDS SUMMARY | 2022-04-07 07:26 | XMS_ITS | Encounter Summary ---
:1955 Author Organization [facility] Address [address] [place] [address] Care Team Providers Name Role Phone Alisha Kimball MD Primary Care Provider Encounter Details Date Type Department Care Team Description 07/27/2015 Orders Only [facility] Diabetes mellitus, type 2 [address] [facility]) [place], [place] [address] Social History Tobacco Use [...] Associated Diagnosis Comme nts HGB A1C Routine 07/27/2015 9:21 AM Diabetes mellitus, Res ults for this SCHOOL CROSSING GUARD type 2 ([facility]) procedure are i n the results section . documented in this encounter Results (ABNORMAL) HGB A1C (07/27/2015 9:21 AM SCHOOL CROSSING GUARD) athologist Signature Hgb A1c 7.2 (H) 4.3 [...] Volume Laterality 07/27/2015 9:21 AM 6 9:23 SCHOOL CROSSING GUARD AM SCHOOL CROSSING GUARD Narrative [facility] - 07/29/2015 11:47 AM SCHOOL CROSSING GUARD Performed at [facility], [address] [place] [address] ??[phone] Alisha Kimball MD LAB_1 Performing Organization Address City/State/ZIP Code Phon e Number [facility] [phone] documented in this encounter Visit Diagnoses Diagnosis Diabetes mellitus, type 2 (HRC) Type II or unspecified type diabetes dinora litus without mention of complication, not stated as uncontrolled documented in this encounter Care Teams Catia Designer Relationship Specialty Start Date End Date Alisha Kimball MD PCP - General 07/08/05 [address] [place] [address] documented as of this encounter
--- OUTSIDE RECORDS SUMMARY | 2022-04-07 07:26 | XMS_ITS | Encounter Summary ---
:1955 Author Organization [facility] Address [address] [place] [address] Care Team Providers Name Role Phone Alisha Kimball MD Primary Care Provider Encounter Details Date Type Department Care Team Description 11/05/2014 Orders Only [facility] Diabetes mellitus, type [address] ([facility]) [place] [address] Social History Tobacco Use Types [...] Associated Diagnosis Comme nts ALBUMIN/CREAT RATIO Routine 11/05/2014 8:58 AM Diabetes mellit us, Results for this CDT type 2 ([facility]) procedure are i n the results section. documented in this encounter Results MICROALB/CREAT RATIO (11/05/2014 8:58 AM CDT) [facility] gist Method Time Signature Albumin, <0.5 [...] 11/05/2014 1:39 PM C DT Performed at [facility], [address] [place] [address] ??[id number] Alisha Kimball MD LAB_1 Performing Organization Address City/State/ZIP Code Phon e Number [facility] [phone] documented in this encounter Visit Diagnoses Diagnosis Diabetes mellitus, type 2 (HRC) Type II or unspecified type diabetes dinora litus without mention of complication, not stated as uncontrolled documented in this encounter Care Teams Mounter Relationship Specialty Start Date End Date Alisha Kimball MD PCP - General 07/08/05 [address] [place] [address] documented as of this encounter
--- OUTSIDE RECORDS SUMMARY | 2022-04-07 07:26 | XMS_ITS | Encounter Summary ---
:1955 Author [facility] Address [address] [place] [address] Care Team Providers Name Role Phone Alisha Kimball MD Primary Care Provider Reason for Visit Reason Comments Refill Encounter Details Date Type Department Care Team Description 2015 Refill [facility] Alisha Remy MD Refill [address] [facility]. [address] [place] [address] [place], [place] [phone] (Wo rk) Social History Tobacco Use Types Packs/Day Years Used Date Smoking Tobacco: Never Smokeless Tobacco: Never Alcohol Use Standard Drinks/Week Comments No 0 (1 standard drink = 0.6 oz pure alcoho l) Sex Assigned at Date Recorded Not on file documented as of this encounter Nursing Notes Meaghan Briggs RN - 02/08/2015 9:10 AM CDT per standing order. Meaghan Briggs RN Interface, Out Surescripts Prov Query - 2015 9:48 PM CDT amLODIPine (AKA NORVASC) 5 MG tablet [Pharmacy Med Name: AMLODIPINE BESYLATE 5MG TABS] - REFILL: 12 months (if violations resolved) - VIOLATION #1: DBP is abnormal (97.0mm Hg is greater than 89.0mm Hg) - VIOLATION #2: SBP is abnormal (149.0mm Hg is greater than 139.0mm Hg) - PROTOCOL: Calcium Channel Blockers - RATIONALE: This refill should last until the patient is due for an office visit check, DBP check and SBP check. - LAST QUALIFYING VISIT IN FAMILY PRACTICE: 12/27/2014 - NEXT SCHEDULED VISIT: None - LAST REFILLED ON: 12/09/2013, QTY: 90, Refills: 3, Sig: take 1 tablet by mouth daily. (changed butequivalent) - SBP: 149.0mm Hg on 12/27/2014 - DBP: 97.0mm Hg on 12/27/2014 Powered by coin4ce, Reference: [id number], 2015 9:48:30 PM CDT, Pool: ARNOLD REFILL RN ([id number]) documented in this encounter Plan of Treatment Not on filedocumented as of this encounter Visit Diagnoses Not on filedocumented in this encounter Care Teams Operations Forester Relationship Specialty Start Date End Date Alisha Kimball MD PCP - General 07/08/05 [address] [place] [address] documented as of this encounter
--- OUTSIDE RECORDS SUMMARY | 2022-04-07 07:26 | XMS_ITS | Encounter Summary ---
:1955 Author Organization [facility] Address [address] [place] [address] Care Team Providers Name Role Phone Alisha Kimball MD Primary Care Provider Reason for Referral Procedure/Equipment (Routine) - Closed Specialty Diagnoses / Procedures Referred By Contact Refer red To Contact Diagnoses Encounter for screening for malignant neoplasm of colon Alisha Kimball MD [address] [place] [address] Referral ID Status Reason Start Date Expiration Date Visits Requ ested Visits Authorized [id number] Closed 12/09/2015 03/09/2017 1 1 Scheduling Instructions Your provider has recommended an appoint ment for a screening colonoscopy with [facility] . You may call the [facility] at [phone] to schedule your colonoscopy. Screening colonoscopies are performed at [facility] in [place], as well as at [facility]. Reason for Visit Reason Comments ROUTINE HEALTH MAINTENANCE smartset Encounter Details Date Type Department Care Team Description 12/09/2015 Office Visit [facility] Alisha Kimball, [facility] (Primary Dx); Practice MD Screening for HIV (human immunodeficienc y virus); [address] Encounter for screening for malignant neoplasm of colon; [place] [address] [address] Need for hepatitis C screening test; [phone] [place], [place] Diabetes mellit us, type 2 (HRC); [address] Insomnia, unspecified type; [phone] SK (seborrheic keratosis) (Work) Social History Tobacco Use Types Packs/Day Years Used Date Smoking Tobacco: Never Smokeless Tobacco: Never Alcohol Use Standard Drinks/Week Comments No 0 (1 standard drink = 0.6 oz pure alcoho l) Sex Assigned at Date Recorded Not on file documented as of this encounter Last Filed Vital Signs Vital Sign Reading Time Taken Comments Blood Pressure 118/84 12/09/2015 10:17 AM CDT Pulse 85 12/09/2015 10:17 AM CDT Temperature 36.6 ??C (97.8 ??F) 12/09/2015 10:17 AM CDT Respiratory Rate - - Oxygen Saturation - - Inhaled Oxygen Concentration - - Weight 83 kg (183 lb) 12/09/2015 10:17 AM CDT Height 162.6 cm (5' 4) 12/09/2015 10:17 AM CDT Body Mass Index 31.41 12/09/2015 10:17 AM CDT documented in this encounter Patient Instructions Patient InstructionsAlisha Kimball MD - 12/09/2015 10:21 AM CDT Images from the original note were not included. For sleep: Try the trazodone 1/2-2 tabs about 30 minutes before bedtime. Call with problems or if this is not helpful. If you are sleeping better, but still tired during the day, let me know. For blood pressure: Decrease your amlodipine to 5 mg (1/2 tab) daily. Let me know if your swelling does not get better or if you are worse or have new symptoms. Please return for a blood pressure check in 2-4 weeks. Well Visit, Women 50 to 65: Care [...] wear sunscreen on exposed skin. Make sure to use a broad-spectrum sunscreen that has a sunprotection factor (SPF) of 30 or higher. Use it every day, even when it is cloudy. ?? See a dentist one or two [...] Where can you learn more? Go to OrthoScan/TopChalks and enter Y074 in the search box. Current as of: August 24, 2014 Content Version: 108 ?? [id number] [employer]. Colonoscopy: Before Your Procedure What is a colonoscopy? A colonoscopy is a test that lets a doctor look inside your colon. The doctor uses a thin, lighted tube called a colonoscope to look for problems. These include small growths called polyps, cancer, or bleeding. During the test, the doctor can take samples of tissue that can be checked for cancer or other problems. This is called a biopsy. The doctor can also take out polyps. Before the test, you will need to stop eating solid foods. You also will drink a liquid or take a tablet that cleans out your colon. This helps your doctor be able to see inside your colon during the test. Follow-up care is a israel part of your treatment and safety. Be sure to make and go to all appointments, and call your doctor if you are having problems. It's also a good idea to know your test results and keep a list of the medicines you take. What happens before the procedure? Procedures can be stressful. This information will help you understand what you can expect. And it will help you safely prepare for your procedure. Preparing for the procedure ?? Understand exactly what procedure is planned, along with the risks, benefits, and other options. ?? Tell your doctors ALL the medicines, vitamins, supplements, and herbal remedies you take. Some ofthese can increase the risk of bleeding or interact with anesthesia. ?? If you take blood thinners, such as warfarin (Coumadin), clopidogrel (Plavix), or aspirin, be sure to talk to your doctor. He or she will tell you if you should stop taking these medicines before your procedure. Make sure that you understand exactly what your doctor wants you to do. ?? Your doctor will tell you which medicines to take or stop before your procedure. You may need to stop taking certain medicines a week or more before the procedure. So talk to your doctor as soon as you can. ?? If you have an advance directive, let your doctor know. It may include a living will and a durable power of litigation attorney for health care. Bring a copy to the hospital. If you don't have one, you may want to prepare one. It lets your doctor and loved ones know your health care wishes. Doctors advise that everyone prepare these papers before any type of surgery or procedure. Before the procedure ?? Follow your doctor's directions about when to stop eating solid foods and drink only clear liquids. You can drink water, clear juices, clear broths, flavored ice pops, and gelatin (such as Jell-O). Do not eat or drink anything red or purple. This includes grape juice and grape-flavored ice pops. Italso includes fruit punch and cronin gelatin. ?? Drink the colon prep liquid as your doctor tells you. You will want to stay home, because the liquid will make you go to the bathroom a lot. Your stools will be loose and watery. It is very important to drink all of the liquid. If you have problems drinking it, call your doctor. Some doctors may have you take a tablet rather than drink a liquid. ?? Do not eat any solid foods after you drink the colon prep. ?? Stop drinking clear liquids 6 to 8 hours before the test. What happens on the day of the procedure? ?? Follow the instructions exactly about when to stop eating and drinking. If you don't, your procedure may be canceled. If your doctor told you to take your medicines on the day of the procedure, takethem with only a sip of water. ?? Take a bath or shower before you come in for your procedure. Do not apply lotions, perfumes, deodorants, or nail uzbek. ?? Take off all jewelry and piercings. And take out contact lenses, if you wear them. At the doctor's office or hospital ?? Bring a picture ID. ?? You will be kept comfortable and safe by your anesthesia provider. The anesthesia may make you sleep. ?? You will lie on your back or your side with your knees drawn up toward your belly. The doctor will gently put a gloved finger into your anus. Then the doctor puts the scope in and moves it into yourcolon. The scope goes in easily because it is lubricated. ?? The doctor may also use small tools to take tissue samples for a biopsy or to remove polyps. Thisdoes not hurt. ?? The test usually takes 30 to 45 minutes. But it may take longer. It depends on what is found and what is done. Going home ?? Be sure you have someone to drive you home. Anesthesia and pain medicine make it unsafe for you to drive. ?? You will be given more specific instructions about recovering from your procedure. When should you call your doctor? ?? You have questions or concerns. ?? You don't understand how to prepare for your procedure. ?? You are having trouble with the bowel prep. ?? You become ill before the procedure (such as fever, flu, or a cold). ?? You need to reschedule or have changed your mind about having the procedure. Where can you learn more? Go to OrthoScan/TopChalks and enter C315 in the search box. Current as of: May 24, 2015 Content Version: 108 ?? [id number] [employer]. documented in this encounter Progress Notes Alisha Kimball MD - 12/09/2015 9:47 AM CDT Routine Health Maintenance: Historical: Loc Velasco is a 60 y.o. old female Chief Complaint Patient presents with ??? ROUTINE HEALTH MAINTENANCE smartset Current concerns: 1. Since increasing her amlodipine, has had increased ankle swelling. Working on weight loss and would like to go back to amlodipine 5 mg daily. 12/09/15 : 183 lb (83.008 kg) 10/10/15 : 189 lb (85.73 kg) Walking daily with good exercise tolerance. 2. Trouble falling and staying asleep. She is not sure why. Sometimes nocturia. No snoring or apnea.Falling asleep at work. Melatonin did not help. Has hangover with Aleve PM. 3. Mole left chest. Catches on clothing and painful and bleeds. Menses are: absent- hysterectomy. History of abnormal pap tests? No Diet, fruits/ vegetables: 4 to 5 servings each day Present exercise habits: walking a mile everyday. She has an exercise routine 30 minutes 3 times a week. Do you have any concerns about your [...] surgical, family and social histories. Observed: BP 118/84 mmHg Pulse 85 Temp(Src) 97.8 ??F (36.6 ??C) (Tympanic) Ht 5' 4 (1.626 m) Wt 183 lb (83.008 kg) BMI 31.40 kg/m2 General: Appears stated age, alert and [...] no masses, no hepatomegaly or splenomegaly. : vagina: normal external genitalia normal cervix: Normal and Pap taken Skin: left chest 3-4 mm dark brown rough, flat papule consistent with seborrheic keratosis. After permission was obtained this was frozen X 1 with liquid nitrogen. Extremities: trace bilateral ankle edema. Assessment/Plan: ICD-10-CM 1. Preventative health care Z00.00 2. Screening for HIV (human immunodeficiency virus) Z11.4 HIV ANTIBODY 3. Encounter for screening for malignant neoplasm of colon Z12.11 COLONOSCOPY-PREVENTATIVE 4. Need for hepatitis C screening test Z11.59 HEPATITIS C ANTIBODY, WITH REFLEX 5. Diabetes mellitus, type 2 (HRC) E11.9 HGB A1C 6. Insomnia, unspecified type G47.00 traZODone (AKA DESYREL) 50 MG tablet 7. Skin tag L91.8 [id number] DESTRUC BENIGN LESIONS; UP 14 Patient counseled: -protection from UV light -calcium and vitamin D recommendations 1. Hypertension. Having side effects with amlodipine 10 mg. Since working on lifestyle changes, willtrial lower dose and see how she does. See the patient instructions. If the swelling does not resolve and/or her blood pressure goes back up, she will follow up. It looks like she had a cough with lisinopril. Could trial losartan. 2. Symptomatic seborrheic keratosis. Treated as above. Routine wound care and follow up prn problemswith healing or other concerns. Biopsy if this persists. 3. Chronic insomnia. Discussed treatment options. She would like to try another medication. See the patient instructions. Alisha Kimball MD documented in this encounter Plan of Treatment Scheduled Referrals Name Type Priority Associated Diagnoses Order S chedule COLONOSCOPY-PREVENTAT Referral Routine Encounter for dragan hernandez Ordered: 12/09/2015 JEFFRY (V76.51) for malignant neoplasm of colon documented as of this encounter Results (ABNORMAL) HGB A1C (Glycated)- [...] AM 6 7:32 CDT AM CDT Narrative [facility] - 03/06/2016 12:43 PM CDT Performed at [facility], [address] [place] [address] ??[id number] Alisha Kimball MD LAB_1 Performing Organization Address City/State/ZIP Code Phon e Number [facility] [phone] documented in this encounter Visit Diagnoses Diagnosis Preventative health care - Primary Routine general medical examination at a health care facility Screening for HIV (human immunodeficienc y virus) Special screening examination for other specified viral diseases Encounter for screening for malignant ne oplasm of colon Special screening for malignant neoplasm s, colon Need for hepatitis C screening test Special screening examination for other specified viral diseases Diabetes mellitus, type 2 (HRC) Type II or unspecified type diabetes dinora litus without mention of complication, not stated as uncontrolled Insomnia, unspecified type SK (seborrheic keratosis) Other seborrheic keratosis Diabetes mellitus, type 2 (HRC) Type II or unspecified type diabetes dinora litus without mention of complication, not stated as uncontrolled documented in this encounter Care Teams Principal Embedded Software Engineer Relationship Specialty Start Date End Date Alisha Kimball MD PCP - General 07/08/05 [address] [place] [address] documented as of this encounter
--- OUTSIDE RECORDS SUMMARY | 2022-04-07 07:26 | XMS_ITS | Encounter Summary ---
:1955 Author Organization [facility] Address [address] [address] Care Team Providers Name Role Phone Alisha Kimball MD Primary Care Provider Reason for Visit Reason Onset Date Comments Refill 11/13/2015 Encounter Details Date Type Department Care Team Description 11/13/2015 Refill [facility] Tesha Maxwell PharmD Refill [address] [facility]. [address] [place] [address] [place], [place] [phone] (Wo rk) Social History Tobacco Use Types Packs/Day Years Used Date Smoking Tobacco: Never Smokeless Tobacco: Never Alcohol Use Standard Drinks/Week Comments No 0 (1 standard drink = 0.6 oz pure alcoho l) Sex Assigned at Date Recorded Not on file documented as of this encounter Nursing Notes Tesha Maxwell PharmD - 11/13/2015 7:34 AM CDT per CPA refill for metformin sent to [facility] pharmacy. Tesha Maxwell PharmD 11/13/2015, 7:35 AM documented in this encounter Plan of Treatment Not on filedocumented as of this encounter Visit Diagnoses Diagnosis Diabetes mellitus, type 2 (HRC) - Primar y Type II or unspecified type diabetes dinora litus without mention of complication, not stated as uncontrolled documented in this encounter Care Teams Shop Mechanic Relationship Specialty Start Date End Date Alisha Kimball MD PCP - General 07/08/05 [address] [facility] [place] [address] documented as of this encounter
--- OUTSIDE RECORDS SUMMARY | 2022-04-07 07:26 | XMS_ITS | Encounter Summary ---
:1955 Author Organization [facility] Address [address] [place] [address] Care Team Providers Name Role Phone Alisha Kimball MD Primary Care Provider Reason for Visit Reason Comments Refill atorvastatin (LIPITOR) 10 MG tablet [Pharmacy Med Name: ATORVASTATIN 10MG TABS] Encounter Details Date Type Department Care Team Description 02/09/2016 Refill [facility] Alisha Kimball MD Refill (atorvastatin Medicine [address] (LIPITOR) 10 MG tablet [address] [place] [address] [Pharmacy Med Name: [place] [address] ATORVASTATIN 10MG TABS]) [phone] Social History Tobacco Use Types Packs/Day Years Used Date Smoking Tobacco: Never Smokeless Tobacco: Never Alcohol Use Standard Drinks/Week Comments No 0 (1 standard drink = 0.6 oz pure alcoho l) Sex Assigned at Date Recorded Not on file documented as of this encounter Nursing Notes Meaghan Briggs RN - 02/10/2016 10:51 AM CDT per standing order Meaghan Briggs RN Interface, Out Surescripts Prov Query - 02/09/2016 6:45 AM CDT The following lab order(s) may be associated with the Result Note below: LIPID PANEL AND DIRECT LDL(IF NEEDED) Notes Recorded by Alisha Kimball MD on 12/03/2015 at 10:12 PM Will discuss with the patient at her next visit 12/09/2015. Alisha Kimball MD Interface, Out Ferevo Prov Query - 02/09/2016 6:45 AM CDT atorvastatin (LIPITOR) 10 MG tablet [Pharmacy Med Name: ATORVASTATIN 10MG TABS] Protocol: Cholesterol - Statins -> Refill x 12 months (until due for an office visit) Last qualifying visit: 12/09/2015 (in Family Practice) Next scheduled visit: None Last ordered: 02/08/2015 (366 days ago) QTY: 90, Refills: 3, Sig: take one tablet by mouth every day(unchanged) LDL: 72 mg/dL on 11/30/2015 Powered by [facility], Reference: [id number], 02/09/2016 6:45:41 AM CDT, Pool: ARNOLD AMEZQUITA RN ([id number]) documented in this encounter Plan of Treatment Not on filedocumented as of this encounter Visit Diagnoses Not on filedocumented in this encounter Care Teams Clubhouse Attendant Relationship Specialty Start Date End Date Alisha Kimball MD PCP - General 07/08/05 [address] [place] [address] documented as of this encounter
--- OUTSIDE RECORDS SUMMARY | 2022-04-07 07:26 | XMS_ITS | Encounter Summary ---
:1955 Author Organization [facility] Address [address] [place] [address] Care Team Providers Name Role Phone Alisha Kimball MD Primary Care Provider Reason for Visit Procedure/Equipment (Routine) - Incomplete Specialty Diagnoses / Procedures Referred By Contact Refer red To Contact Procedures David Kat MD US PELVIS COMPLETE W IVT [address] ([facility] [place] [address] Referral ID Status Reason Start Date Expiration Date Visits V isits Requested Authorized [id number] Incomplete 08/24/2014 1 1 Encounter Details Date Type Department Care Team Description 08/24/2014 [facility] Radiology Ul trasound David Kat MD [address] [place] [address] Social History Tobacco Use Types Packs/Day [...] Priority Date/Time Associated Diagnosis Comme nts US PELVIC COMPLETE Routine 08/24/2014 3:20 PM Res ults for 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 documented in this encounter Results US PELVIS COMPLETE W IVT (RH/HSC) (08/24/2014 3:20 PM W[employer] CHEMIST) Anatomical Region Laterality Modality Pelvis Ultrasound Specimen (Source) Anatomical Collection Method Collection Time Re ceived Time Location / / Volume Laterality 08/24/2014 3:20 PM [employer] CHEMIST Narrative 08/24/2014 4:34 PM [employer] CHEMIST US PELVIS COMPLETE W/IVT (UTERUS/OVARIES) 08/24/2014 3:20 [...] Nonvisualization of the ovaries. David Kat MD [facility] US documented in this encounter Visit Diagnoses Not on filedocumented in this encounter Care Teams Managed Security Sales Consultant Relationship Specialty Start Date End Date Alisha Kimball MD PCP - General 07/08/05 [address] [place] [address] documented as of this encounter
--- OUTSIDE RECORDS SUMMARY | 2022-04-07 07:26 | XMS_ITS | Encounter Summary ---
:1955 Author Organization [facility] Address [address] [place] [address] Care Team Providers Name Role Phone Alisha Kimball MD Primary Care Provider Encounter Details Date Type Department Care Team Description 08/24/2014 Orders Only [facility] Abdominal pain, [address] [place] [address] Social History Tobacco Use Types [...] Name Priority Date/Time Associated Diagnosis Comme nts COMPLETE BLOOD Waiting 08/24/2014 10:24 AM Abdominal pain, Res ults for this COUNT-W/DIFF SUBSTANCE ABUSE THERAPIST generalized procedure are i n the results section. URINE CULTURE Routine 08/24/2014 10:24 AM Abdominal pain, Resu lts for this SUBSTANCE ABUSE THERAPIST generalized procedure are i n the results section. BASIC METABOLIC Routine 08/24/2014 10:24 AM Abdominal pain, Re sults for this PANEL SUBSTANCE ABUSE THERAPIST generalized procedure are i n the results section. H. PYLORI IGG Routine 08/24/2014 10:24 AM Abdominal pain, Resu lts for this SUBSTANCE ABUSE THERAPIST generalized procedure are i n the results section. C-REACTIVE PROTEIN Routine 08/24/2014 10:24 AM Abdominal pain, Results for this SUBSTANCE ABUSE THERAPIST generalized procedure are i n the results section. UA WITH MICRO Waiting 08/24/2014 10:24 AM Abdominal pain, Resu lts for this SUBSTANCE ABUSE THERAPIST generalized procedure are i n the results section. documented in this encounter Results H. PYLORI IGG (08/24/2014 10:24 AM SUBSTANCE ABUSE THERAPIST) [facility] Method Time Signature H. pylori IgG Negative NEG [facility] Specimen Anatomical Collection Method Collection Time Receive d Time (Source) Location / / Volume Laterality 08/24/2014 10:24 08/24/2014 AM SUBSTANCE ABUSE THERAPIST 10:25 AM SUBSTANCE ABUSE THERAPIST Narrative [facility] - 08/27/2014 2:[address] Performed at [facility], [address] [place] [address] ??[phone] David Kat MD LAB_1 Performing Organization Address City/[facility] Phon e Number [facility] [phone] URINE CULTURE (08/24/2014 10:24 AM SUBSTANCE ABUSE THERAPIST) Component Value Ref Test Analysis Performed At [facility] Method Time Signature Specimen Urine [facility] Description Midstream [facility] Special Unspecified [facility] Culture No Growth [facility] After 1 Day [facility] Report Status Final [facility] 08/25/2014 [facility] Specimen Anatomical Collection Method Collection Time Receive d Time (Source) Location / / Volume Laterality 08/24/2014 10:24 08/24/2014 AM SUBSTANCE ABUSE THERAPIST 10:25 AM SUBSTANCE ABUSE THERAPIST Narrative [facility] - 08/25/2014 1:[address] Performed at [facility] , [address] [place] [id number] David Kat MD LAB_1 Performing Organization Address City/[facility] Code Phon e Number [facility] [phone] (ABNORMAL) UA WITH MICRO (08/24/2014 10:24 AM SUBSTANCE ABUSE THERAPIST) [facility] Method Time Signature Urine Color Yellow [facility] [...] / Volume Laterality 08/24/2014 10:24 08/24/2014 AM SUBSTANCE ABUSE THERAPIST 10:25 AM SUBSTANCE ABUSE THERAPIST Narrative [facility] - 08/24/2014 10:37 AM SUBSTANCE ABUSE THERAPIST Performed at [facility], [address] [place] [address] ??[phone] David Kat MD LAB_1 Performing Organization Address City/[facility] Phon e Number [facility] [phone] (ABNORMAL) BASIC METABOLIC PANEL (08/24/2014 10:24 AM SUBSTANCE ABUSE THERAPIST) [facility] [place] Method Time Signature Sodium 143 135 - [...] / Volume Laterality 08/24/2014 10:24 08/24/2014 AM SUBSTANCE ABUSE THERAPIST 10:25 AM SUBSTANCE ABUSE THERAPIST Narrative [facility] - 08/24/2014 2:[address] Performed at [facility], [address] [place] [address] ??[phone] David aKt MD LAB_1 Performing Organization Address City/[facility] Phon e Number [facility] [phone] (ABNORMAL) C-REACTIVE PROTEIN (08/24/2014 10:24 AM SUBSTANCE ABUSE THERAPIST) [facility] [place] Method Time Signature C-Reactive 5.7 (H) 0.0 - 0.9 [facility] Protein mg/dl LAB[facility]ATORIES Comment: Note: results are expressed in mg/dL. Specimen Anatomical Collection Method Collection Time Receive d Time (Source) Location / / Volume Laterality 08/24/2014 10:24 08/24/2014 AM SUBSTANCE ABUSE THERAPIST 10:25 AM SUBSTANCE ABUSE THERAPIST Narrative [facility] - 08/24/2014 2:[address] Performed at [facility], [address] ??[phone] David Kat MD LAB_1 Performing Organization Address City/State/ZIP Code Phon e Number [facility] [phone] HEMOGRAM/PLTS/DIFF (08/24/2014 10:24 AM SUBSTANCE ABUSE THERAPIST) Analysis Performed At [facility] logist Time Signature WBC 8.2 4.0 - [...] [facility] Lymph 24 % [facility] Ford 7 % [facility] Eos 2 % [facility] Baso 1 % [facility] Neutrophil 5.4 1.8 - 7.7 [facility] Absolute k/ul LABORATOR[facility] Lymph Absolute 2.0 1.0 - 4.8 [facility] k/ul [facility] Ford Absolute 0.6 0.1 - 0.7 [facility] k/ul [facility] Eos Absolute 0.2 0.0 - 0.5 [facility] k/ul [facility] Baso Absolute 0.1 0.0 - 0.2 [facility] k/ul [facility] Specimen Anatomical Collection Method Collection Time Receive d Time (Source) Location / / Volume Laterality 08/24/2014 10:24 08/24/2014 AM SUBSTANCE ABUSE THERAPIST 10:25 AM SUBSTANCE ABUSE THERAPIST Narrative [facility] - 08/24/2014 10:39 AM SUBSTANCE ABUSE THERAPIST Performed at [facility], [address] [place], [place] ??[address] David Kat MD LAB_1 Performing Organization Address City/State/ZIP Code Phon e Number [facility] [phone] documented in this encounter Visit Diagnoses Diagnosis Abdominal pain, generalized documented in this encounter Care Teams Door Manager Relationship Specialty Start Date End Date Alisha Kimball MD PCP - General 07/08/[address] [place] [address] documented as of this encounter
--- OUTSIDE RECORDS SUMMARY | 2022-04-07 07:26 | XMS_ITS | Encounter Summary ---
:1955 Author Organization Count includes the [facility] Address [address] [place] [address] Care Team Providers Name Role Phone Alisha Kimball MD Primary Care Provider Reason for Visit Reason Onset Date Comments Medication Questions 12/17/2014 Encounter Details Date Type Department Care Team Description 12/17/2014 Telephone [facility] Tesha Maxwell, Medication Questions [address] [facility] [place] [address] [address] [facility] [phone] [place], [place] [address] (Wo rk) Social History Tobacco Use Types Packs/Day Years Used Date Smoking Tobacco: Never Smokeless Tobacco: Never Alcohol Use Standard Drinks/Week Comments No 0 (1 standard drink = 0.6 oz pure alcoho l) Sex Assigned at Date Recorded Not on file documented as of this encounter Nursing Notes Tesha Maxwell PharmD - 12/19/2014 8:52 AM CDT New order for Edilma meter sent to pharmacy. Tesha Owens PharmD Rocio Garcia - 12/19/2014 8:44 AM CDT Patient calling back, requesting Accu-Chek Edilma be sent to [facility]. Tesha Maxwell PharmD - 12/17/2014 2:22 PM CDT Returned patient's call. Patient was in [place] for a wedding and left her glucometer. She still has all the testing supplies at home and would like a replacement instead of a new meter if possible. She will contact clinic with her Accu-check meter type tomorrow or Wednesday so I can reorder it for her. Tesha Maxwell PharmD 12/17/2014, 2:23 PM Crystal Marc - 12/17/2014 11:14 AM CDT Pt would like to speak with Tesha about her diabetic testing supplies please call her back. This is her direct work number. But she will be a lunch then a meeting from 11:30 thru 2 pm. Please try calling her back documented in this encounter Plan of Treatment Not on filedocumented as of this encounter Visit Diagnoses Not on filedocumented in this encounter Care Teams Dry Cell Sealer Relationship Specialty Start Date End Date Alisha Kimball MD PCP - General 07/08/05 [address] [place] [address] documented as of this encounter
--- OUTSIDE RECORDS SUMMARY | 2022-04-07 07:26 | XMS_ITS | Encounter Summary ---
:1955 Author Organization [facility] Address [address] [place] [address] Care Team Providers Name Role Phone Alisha Kimball MD Primary Care Provider Reason for Visit Reason Comments HTN MANAGEMENT AND EDUCATION Encounter Details Date Type Department Care Team Description 12/09/2015 Office Visit [facility] Tesha Maxwell, Diabetes mellitus, type 2 (H RC) (Primary Dx); [address] PharmD Essential hypertension; [place] [address] [address] Hypercholesterolemia (HRC) [phone] [place] [address] Social History Tobacco Use Types Packs/Day Years Used Date Smoking Tobacco: Never Smokeless Tobacco: Never Alcohol Use Standard Drinks/Week Comments No 0 (1 standard drink = 0.6 oz pure alcoho l) Sex Assigned at Date Recorded Not on file documented as of this encounter Patient Instructions Patient InstructionsPeTesha wallace PharmD - 12/09/2015 10:57 AM CDT 1) Okay to cut back on amlodipine to 5mg daily to help with swelling. 2) Move atorvastatin 10mg daily to morning to see if this helps reduce insomnia. 3) Trazodone is a good option for sleep, it is does not interact with current medications. 4) Your follow-up appointment is scheduled for , March 12 at 8:00am at the [facility]. Please call me or e-mail if you have questions. Thanks, Anne MurrietaD [facility] on Wednesday & Wednesday [facility] on & Wednesday documented in this encounter Progress Notes Tesha Maxwell PharmD - 12/09/2015 10:56 AM CDT Sole Velasco is a 60 y.o. old female who was referred by [employer] for HTN management/education and diabetes management/education. Melia presents today immediately following her PCP visit. Her blood pressure at PCP appointment was well within goal, however lower leg edema was noted and amlodipine was reduced to 5mg daily. Patient reports she has significantly increased her activity level and is now exercising twice daily most days. Although A1C was slightly higher patient feels this too willbe improved at next check as home readings are improving. Patient's biggest complaint today is difficulty sleeping. She was given trazodone at her appointment today, but questions if some of her evening medications could be contributing to her sleeplessness. Continues to meet all diabetes goals, despite above concerns. Pt denies dizziness, chest pain/pressure, cough , diarrhea, muscle pain, numbness or tingling, bruising, bleeding and hypoglycemia Exercise: increased Diet:no change Medication optimization: Patient reports missing [...] ??? Never Used ASPIRIN USE: Yes BP Readings from Last 2 Encounters: 12/09/15 118/84 10/10/15 134/86 HGBA1C (%) Date Value 11/30/2015 7.3* Lab Results Component Value Date/Time TSH 1.465 10/30/2013 07:37 AM Estimated body mass index is 31.40 kg/(m^2) as calculated from the following: Height as of 11/05/14: 5' 4 (1.626 m). Weight as of an earlier encounter on 12/09/15: 183 lb (83.008 kg). CHOL (mg/dl) Date Value 11/30/2015 143 HDL (mg/dl) Date Value 11/30/2015 41 LDL (mg/dl) Date Value 11/30/2015 72 TRI (mg/dl) Date Value 11/30/2015 150* 10/30/2013 118 AST (U/L) Date Value 12/16/2012 31 ALT (U/L) Date Value 11/30/2015 74* BILIRUBINTOT (mg/dl) Date Value 12/16/2012 0.9 CREATININE (mg/dl) Date Value 11/30/2015 0.73 GFR (ml/min/1.73m2) Date Value 11/30/2015 >60 11/30/2015 >60 K (mmol/L) Date Value 11/30/2015 4.8 SODIUM (mmol/L) Date Value 11/30/2015 143 A BP goal :<140/90. Pt is at goal. LDL goal: moderate intensity statin. Pt is at goal. HgbA1C goal: <8%. Pt is at goal. 1. Hyperlipidemia and atorvastatin. Safety - Adverse Drug Reaction: adverse reactions present, insomnia P 1) Recommend patient move atorvastatin 10mg daily to morning dosing and monitor for improvement in insomnia. Reassured patient trazodone is a good option and recommend she take it 30-60 minutes prior to planned bedtime. 2) Agree with reduction in amlodipine dosage. Pt to contact me or Alisha Kimball MD if swelling continues. Patient agrees. 3) A copy of the After Visit Summary was provided to patient, details were reviewed by me and all questions were answered. 4) Follow-up appointment scheduled for March 12 at 8:00am Updated DXY med list and reviewed medications including indications with patient. Total time spent with patient 15 minutes. Tseha Maxwell PharmD Clinical Pharmacist Medication Therapy Management [...] hypercholesterolemia documented in this encounter Care Teams Mold Tooling Technician Relationship Specialty Start Date End Date Alisha Kimball MD PCP - General 07/08/05 [address] [place] [address] documented as of this encounter
--- OUTSIDE RECORDS SUMMARY | 2022-04-07 07:27 | XMS_ITS | Encounter Summary ---
:1955 Author Organization [facility] Address [address] [place] [address] Care Team Providers Name Role Phone Alisha Kimball MD Primary Care Provider Reason for Visit Reason Comments MEDICATION THERAPY MANAGEMENT SEGIP Encounter Details Date Type Department Care Team Description 05/21/2014 Office Visit [facility] Tesha Maxwell, Diabetes mellitus, type 2 (P rimary Dx); [address] PharmD Hypertension; [place] [address] [address] Hypercholesterolemia [phone] [place], [place] [address] Social History Tobacco Use Types Packs/Day Years Used Date Smoking Tobacco: Never Smokeless Tobacco: Never Alcohol Use Standard Drinks/Week Comments No 0 (1 standard drink = 0.6 oz pure alcoho l) Sex Assigned at Date Recorded Not on file documented as of this encounter Last Filed Vital Signs Vital Sign Reading Time Taken Comments Blood Pressure 126/89 05/21/2014 10:42 AM ANGIOGRAPHY NURSE Pulse 83 05/21/2014 10:42 AM ANGIOGRAPHY NURSE Temperature - - Respiratory Rate - - Oxygen Saturation - - Inhaled Oxygen Concentration - - Weight - - Height - - Body Mass Index - - documented in this encounter Patient Instructions Patient InstructionsPeTesha wallace PharmD - 05/21/2014 10:24 AM CST 1) Currently you are meeting all your diabetes goals. Continue on your current medication regimen. 2) I will let Alisha Kimball MD know you are having difficulty with stomach upset from the higher dose of metformin. 3) I will fax in your SEGIP enrollment form today. 4) Make an appointment with Medication Therapy Management Clinical Pharmacist in 6 month(s) for follow-up evaluation. Sooner if questions of concerns arise. Please call me or e-mail if you have questions. Thanks, Tesha Maxwell PharmD [facility] on Wednesday & Wednesday: [phone] [facility] on & Wednesday: [phone] OGRAPHY NURSE documented in this encounter Progress Notes Tesha Maxwell PharmD - 05/21/2014 10:23 AM CST S Loc Velasco was referred to Medication Therapy Management Services by [facility] for diabetes management/education. Melia presents today for general medication review and enrollment into the SEG program. She had her A1C drawn earlier this morning. Late Summer and early Fall Melia reports she was having difficulty controlling her blood sugars secondary to the stress of a move and reduced exercise. She is now settled and able to be more active. She did increase her metformin ER as requested by Alisha Kimball MD, since the increase she has noted stomach pain/discomfort on a frequent basis. She did nothave any stomach issues with the 2 tablets daily dose. Her blood sugars have improved noting all in goal range over the past month. Melia reports she takes her medications in the evening. Her blood pressure is well controlled at home. Melia reports her low dose statin helps greatly to control her cholesterol. She does follow a goodcholesterol/BP/DM diet, but notes reduction in exercise makes a big impact on her numbers. Patient is up to date on her eye exam, but is due for a foot exam. Today she denies lower leg edema, increasedbleeding/bruising, diffuse muscle pain/weakness, and hypoglycemia. Overall Adherence: Patient reports missing a dose of medication [...] mellitus, type 2 ??? Hypertension ??? Hypercholesterolemia History Smoking status ??? Never Smoker Smokeless tobacco ??? Never Used ASPIRIN USE: Yes There were no vitals taken for this visit. BP Readings from Last 2 Encounters: 10/30/13 123/82 10/31/12 128/86 HGB A1C (%) Date Value 04/16/2014 7.9* Estimated body mass index is 30.88 kg/(m^2) as calculated from the following: Height as of 10/30/13: 5' 4 (1.626 m). Weight as of 10/30/13: 180 lb (81.647 kg). CHOLESTEROL (mg/dl) Date Value 10/30/2013 140 HDL (mg/dl) Date Value 10/30/2013 38* LDL, CALC. (mg/dl) Date Value 10/30/2013 78 TRIGLYCERIDE (mg/dl) Date Value 10/30/2013 118 09/09/2006 137 AST (SGOT) (U/L) Date Value 12/16/2012 31 ALT (SGPT) (U/L) Date Value 10/30/2013 52 BILIRUBIN, TOTAL (mg/dl) Date Value 12/16/2012 0.9 CREATININE (mg/dl) Date Value 10/30/2013 0.73 GFR EST IF (ml/min/1.73m2) Date Value 10/30/2013 >60.0 GFR, ESTIMATED (ml/min/1.73m2) Date Value 10/30/2013 >60.0 POTASSIUM (mmol/L) Date Value 10/30/2013 4.2 A BP goal: <140/90 Pt is at goal. LDL goal: <100 Pt is at goal. On low dose statin HgbA1C goal: <8%. Pt is at goal. 1. Medical condition and drug therapy involved: Diabetes and metformin. Drug therapy problem: adverse reactions present, stomach upset on 2000mg dosage. P 1) Will alert PCP to stomach upset. If A1C comes back in low 7 range recommend returning to metformin ER 500mg 2 tablets daily to help reduce risk of stomach upset. 2) A copy of the After Visit Summary was provided to patient, details were reviewed by me and all questions were answered. 3) SEGIP form faxed for enrollment. 4) Patient to make appointment with me in 6 month(s) for follow-up, sooner if needed. Updated [facility] med list and reviewed medications including indications with patient. Total time spent with patient 15 minutes. Tesha Maxwell PharmD Clinical Pharmacist Medication Therapy Management Program OGRAPHY NURSE documented in this encounter Plan of Treatment Not on filedocumented as of this encounter Visit Diagnoses Diagnosis Diabetes mellitus, type 2 (HRC) - Primar y Type II or unspecified type diabetes dinora litus without mention of complication, not stated as uncontrolled Hypertension (HRC) Unspecified essential hypertension Hypercholesterolemia Pure hypercholesterolemia documented in this encounter Care Teams Press Operator Carbon Products Relationship Specialty Start Date End Date Alisha Kimball MD PCP - General 07/08/05 [address] [place] [address] documented as of this encounter
--- OUTSIDE RECORDS SUMMARY | 2022-04-07 07:27 | XMS_ITS | Encounter Summary ---
:1955 Author Organization [facility] Address [address] [place] [address] Care Team Providers Name Role Phone Alisha Kimball MD Primary Care Provider Reason for Visit Reason Onset Date Comments PHARMACIST COUNSELING 07/07/2013 diabetes Encounter Details Date Type Department Care Team Description 07/07/2013 Pharmacy [facility], Tesha, PHARMACIS T COUNSELING Pharmacy PharmD (diabetes) [address] [facility]. [address] [place] [address] [facility] [phone] [place], [place] [address] (Wo rk) Social History [...] on filedocumented in this encounter Care Teams Grove Superintendent Relationship Specialty Start Date End Date Alisha Kimball MD PCP - General 07/08/05 [address] [place], [place] [address] documented as of this encounter
--- OUTSIDE RECORDS SUMMARY | 2022-04-07 07:27 | XMS_ITS | Encounter Summary ---
:1955 Author Organization [facility] Address [address] [place] [address] Care Team Providers Name Role Phone Alisha Kimball MD Primary Care Provider Encounter Details Date Type Department Care Team Description 05/21/2014 Orders Only [facility] Diabetes mellitus, type [address] [place] [address] Social History Tobacco Use Types [...] Diagnosis Comme nts CREATININE / GFR Routine 05/21/2014 7:33 AM Diabetes mellitus , Results for this DIRECTOR HEART type 2 procedure are i n the results section. HGB A1C Routine 05/21/2014 7:33 AM Diabetes mellitus, Res ults for this DIRECTOR HEART type 2 procedure are i n the results section. documented in this encounter Results CREATININE / GFR (05/21/2014 7:33 AM DIRECTOR HEART) Analysis Performed At Patho logist Time Signature Creatinine 0.90 0.52 - [facility] 1.04 mg/dl [facility] GFR, Estimated >60 >60 [facility] ml/min/1.7 [facility] 3m2 GFR, Est., If >60 >60 [facility] Black ml/min/1.7 [facility]ATOR[facility] 3m2 Specimen Anatomical Collection Method Collection Time Receive d Time (Source) Location / / Volume Laterality 05/21/2014 7:33 AM 4 7:34 DIRECTOR HEART AM DIRECTOR HEART Narrative [facility] - 05/21/2014 1:[address] Performed at [facility] [employer] [facility], [address] [place] [address] ??[id number] Alisha Kimball MD LAB_1 Performing Organization Address [facility] e Number [employer] [facility] [phone] (ABNORMAL) HGB A1C (05/21/2014 7:33 AM DIRECTOR HEART) P athologist Signature Hgb A1c 7.5 (H) 4.3 - 5.6 [facility] % [...] Time (Source) Location / / Volume Laterality 05/21/2014 7:33 AM 4 7:34 DIRECTOR HEART AM DIRECTOR HEART Narrative [facility] - 05/21/2014 1:[address] Performed at [facility], [address] [place] [address] ??[phone] Alisha Kimball MD LAB_1 Performing Organization Address [facility] e Number [facility] [phone] documented in this encounter Visit Diagnoses Diagnosis Diabetes mellitus, type 2 (HRC) Type II or unspecified type diabetes dinora litus without mention of complication, not stated as uncontrolled documented in this encounter Care Teams Engineer Sergeant Relationship Specialty Start Date End Date Alisha Kimball MD PCP - General 07/08/05 [address] [place] [address] documented as of this encounter
--- OUTSIDE RECORDS SUMMARY | 2022-04-07 07:27 | XMS_ITS | Encounter Summary ---
:1955 Author Organization [facility] Address [address] [place] [address] Care Team Providers Name Role Phone Alisha Kimball MD Primary Care Provider Reason for Referral Procedure/Equipment (Routine) - Incomplete Specialty Diagnoses / Procedures Referred By Contact Refer red To Contact Diagnoses Encounter for screening mammogram for malignant neoplasm of breast Alisha Kimball MD Procedures BILAT Mammogram screening [address] [place] [address] Referral ID Status Reason Start Date Expiration Date Visits V isits Requested Authorized [id number] Incomplete 10/30/2013 1 1 Reason for Visit Reason Comments ROUTINE HEALTH MAINTENANCE Encounter Details Date Type Department Care Team Description 10/30/2013 Office Visit [facility] Alisha Kimball, [facility] (Primary Dx); Practice MD Encounter for screening mammogram for ma lignant neoplasm of breast [address] [place] [address] [place], [place] [id number] Social History Tobacco Use Types Packs/Day Years Used Date Smoking Tobacco: Never Smokeless Tobacco: Never Alcohol Use Standard Drinks/Week Comments No 0 (1 standard drink = 0.6 oz pure alcoho l) Sex Assigned at Date Recorded Not on file documented as of this encounter Last Filed Vital Signs Vital Sign Reading Time Taken Comments Blood Pressure 123/82 10/30/2013 10:23 AM CDT Pulse 80 10/30/2013 10:23 AM CDT Temperature 36.7 ??C (98 ??F) 10/30/2013 10:18 AM CDT Respiratory Rate - - Oxygen Saturation - - Inhaled Oxygen Concentration - - Weight 81.6 kg (180 lb) 10/30/2013 10:18 AM CDT Height 162.6 cm (5' 4) 10/30/2013 10:18 AM CDT Body Mass Index 30.9 10/30/2013 10:18 AM CDT documented in this encounter Progress Notes Alisha Kimball MD - 10/30/2013 10:02 AM CDT Routine Health Maintenance: Historical: Loc Velasco is a 58 yr old female Chief Complaint Patient presents with ??? ROUTINE HEALTH MAINTENANCE Current concerns: Left ear crackling, when she yawns she can hear it. No pain. They both itch for 2 years. No hearing loss or otorrhea. No URI symptoms. No treatment. Glucoses OK. No medication side effects. Has had an eye exam this year. Labs drawn this morning and pending. Menses are: absent- hysterectomy Diet, fruits/ vegetables: 5 or more servings each day Present exercise habits: 30 minutes or more, >3-5 times per week/ walking. Good exercise tolerance. Do you have any concerns about your [...] surgical, family and social histories. Observed: BP 123/82 Pulse 80 Temp(Src) 98 ??F (36.7 ??C) (Tympanic) Ht 5' 4 (1.626 m) Wt 180 lb (81.647 kg) BMI 30.88 kg/m2 Estimated body mass index is 30.88 kg/(m^2) as calculated from the following: Height as of this encounter: 5' 4 (1.626 m). Weight as of this encounter: 180 lb (81.647 kg). General: Appears stated age, alert and comfortable HEENT: normal eyes, throat, oropharynx. Right canal clear and tympanic membrane normal. Left tympanic membrane normal but there is a large amount of dry-looking wax in the canal, which may be causing her symptoms. After permission was obtained the left canal was irrigated with water with cerumen removal and resolution of symptoms. Neck: supple. No LAD. No thyromegaly or mass. Lungs: clear to auscultation, no wheezes or rales Breasts: no skin changes, no dominant masses, no axillary lymphadenopathy CV: regular rate and rhythm, normal S1 and S2 without murmur or click Abd: Soft, non-tender, no masses, no hepatomegaly or splenomegaly. : pelvic exam not indicated Skin: no significant abnormalities noted Assessment/Plan: ICD-9-CM 1. Preventative health care V70.0 2. Encounter for screening mammogram for malignant neoplasm of breast V76.12 MAMMOGRAM SCREENING W/CAD BILAT Patient counseled: -protection from UV light -sleep hygiene -aspirin use -calcium and vitamin D recommendations Alisha Kimball MD documented in this encounter Plan of Treatment Not on filedocumented as of this encounter Results BILAT Mammogram screening (11/01/2013 9:19 AM CDT) Anatomical Region Laterality Modality Breast Bilateral Mammography Specimen (Source) Anatomical Location Collection Method / Collectio n Time Received Time / Laterality Volume Narrative 11/01/2013 4:06 PM CDT BILATERAL FULL FIELD DIGITAL SCREENING MAMMOGRAM Performed on 11/01/2013 Comparison: MAMMOGRAM SCREENING W/CAD BI LAT 10/24/12 and MAMMOGRAM SCREENING W/CAD BILAT 09/21/11. Findings: The breasts are fatty replaced . There is no radiographic evidence of malignancy. This study was e valuated with the assistance of Computer-Aided Detection. ??Repeat routi ne screening mammogram in one year is recommended. ACR BI-RADS Category 1: Negative Procedure Note Judie Santo MD - 11/01/2013Forma tting of this note might be different from the original. BILATERAL FULL FIELD DIGITAL SCREENING M AMMOGRAM Performed on 11/01/2013 Comparison: MAMMOGRAM SCREENING W/CAD BI LAT 10/24/12 and MAMMOGRAM SCREENING W/CAD BILAT 09/21/11. Findings: The breasts are fatty replaced . There is no radiographic evidence of malignancy. This study was evaluated with the assistance of Computer-Aided Detection. Repeat routine screening mammogram in one year is recommended. ACR BI-RADS Category 1: Negative Alisha Kimball MD RAD MIKEY documented in this encounter Visit Diagnoses Diagnosis Preventative health care - Primary Routine general medical examination at a health care facility Encounter for screening mammogram for ma lignant neoplasm of breast Other screening mammogram Encounter for screening mammogram for ma lignant neoplasm of breast Other screening mammogram documented in this encounter Care Teams Performance Improvement Coordinator Relationship Specialty Start Date End Date Alisha Kimball MD PCP - General 07/08/05 [address] [place] [address] documented as of this encounter
--- OUTSIDE RECORDS SUMMARY | 2022-04-07 07:27 | XMS_ITS | Encounter Summary ---
:1955 Author [facility] Address [address], [place] [address] Care Team Providers Name Role Phone Alisha Kimball MD Primary Care Provider Reason for Visit Reason Comments Refill Encounter Details Date Type Department Care Team Description 09/24/2013 Refill [facility] Alisha Steinberg MD Refill [address] [facility]. [address] [place] [address] [place], [place] [id number] (Wo rk) Social History Tobacco Use Types Packs/Day Years Used Date Smoking Tobacco: Never Smokeless Tobacco: Never Alcohol Use Standard Drinks/Week Comments No 0 (1 standard drink = 0.6 oz pure alcoho l) Sex Assigned at Date Recorded Not on file documented as of this encounter Nursing Notes Denice Faust RN - 09/25/2013 2:00 PM CDT per standing order Denice Faust RN Interface, Out Surescripts Prov Query - 09/24/2013 8:48 PM CDT atorvastatin (AKA LIPITOR) 10 MG tablet [Pharmacy Med Name: ATORVASTATIN CALCIUM 10MG TABS] - REFILL: 3 months - PROTOCOL: Antilipid: HMG-CoA Reductase Inhibitors - RATIONALE: This refill should last until the patient is due for an office visit. - LAST PRIMARY CARE VISIT: 10/31/2012 - NEXT PRIMARY CARE VISIT: 10/30/2013 - LAST REFILLED ON: 10/31/2012, QTY: 90, Refills: 3, Sig: take 1 tab by mouth daily. (changed but equivalent) - LDL: 73.0mg/dL on 12/16/2012 ADDITIONAL SCHEDULING ACTIONS TAKEN: - BLOOD PRESSURE for amLODIPINE (AKA NORVASC) 5 MG tablet (Sent to [employer] ENGINEER POOL) - LIPID PANEL (12 HR. FASTING) for atorvastatin (AKA LIPITOR) 10 MG tablet (Sent to [employer]INEER POOL) Powered by [employer], Reference: [id number], 09/24/2013 8:49:09 PM CDT documented in this encounter Plan of Treatment Not on filedocumented as of this encounter Visit Diagnoses Diagnosis Pure hypercholesterolemia - Primary documented in this encounter Care Teams Prekindergarten Teacher Relationship Specialty Start Date End Date Alisha Kimball MD PCP - General 07/08/05 [address] [place] [address] documented as of this encounter
--- OUTSIDE RECORDS SUMMARY | 2022-04-07 07:27 | XMS_ITS | Encounter Summary ---
:1955 Author Organization [facility] Address [address] [place] [address] Care Team Providers Name Role Phone Alisha Kimball MD Primary Care Provider Encounter Details Date Type Department Care Team Description 10/30/2013 Orders Only [facility] Diabetes mellitus, type 2; [address] Hypercholesterolemia; [place] [address] Hypertension; [phone] Screening for t hyroid disorder; Screening, anem ia, deficiency, iron Social History Tobacco Use Types Packs/Day Years [...] Diagnosis Comme nts LIPID PANEL AND Routine 10/30/2013 7:37 Hypercholesterolemia R esults for this DIRECT LDL(IF AM CDT procedure are in NEEDED) the results section. CREATININE / GFR Routine 10/30/2013 7:37 Diabetes mellitus, ty pe 2 Results for this AM CDT procedure are i n the results section. COMPLETE BLOOD Routine 10/30/2013 7:37 Screening, anemia, Resu lts for this COUNT-NO DIFF AM CDT deficiency, iron procedure are in the results section. ALBUMIN/CREAT Routine 10/30/2013 7:37 Diabetes mellitus, type 2 Results for this RATIO AM CDT procedure are i n the results section. TSH, SENSITIVE Routine 10/30/2013 7:37 Screening for thyroid R esults for this (WITH REFLEX) AM CDT disorder procedure are in the results section. HGB A1C Routine 10/30/2013 7:37 Diabetes mellitus, type 2 Results for this AM CDT procedure are i n the results section. ALT (SGPT) Routine 10/30/2013 7:37 Diabetes mellitus, type 2 Results for this AM CDT procedure are i n the results section. SODIUM Routine 10/30/2013 7:37 Hypertension Results for this AM CDT procedure are i n the results section. POTASSIUM Routine 10/30/2013 7:37 Hypertension Results for this AM CDT procedure are i n the results section. documented in this encounter Results HEMOGRAM/PLTS (10/30/2013 7:37 AM CDT) athologist Signature WBC 5.4 4.0 - 11.0 [facility] k/ul RBC 4.81 4.0 - 5.2 [facility] M/ul Hemoglobin 14.5 12.0 - 16.0 [facility] g/dl HCT 42.3 36.0 - 46.0 [facility] % MCV 87.9 80 - 100 fl [facility] MCH 30.1 26 - 34 pg [facility] MCHC 34.3 32 - 36 [facility] g/dl RDW 12.6 11.5 - 14.5 [facility] % Platelets 250 150 - 450 [facility] k/ul Specimen Anatomical Collection Method Collection Time Receive d Time (Source) Location / / Volume Laterality 10/30/2013 7:37 AM 4 7:39 CDT AM CDT Narrative [facility] - 10/30/2013 1:03 PM C DT Performed at [facility], [address] [place] [address] ??[id number] Alisha Kimball MD LAB_1 Performing Organization Address City/State/ZIP Code Phon e Number [facility] [phone] TSH, SENSITIVE with FT4, FT3 (if needed) (10/30/2013 7:37 AM CDT) athologist Signature TSH, with 1.465 0.300 - [facility] Reflex 5.000 [facility]IES uIU/ml Specimen Anatomical Collection Method Collection Time Receive d Time (Source) Location / / Volume Laterality 10/30/2013 7:37 AM 4 7:39 CDT AM CDT Narrative [facility] - 10/30/2013 2:45 PM C DT Performed at [facility], [address] [place] [address] ??[phone] Alisha Kimball MD LAB_1 Performing Organization Address [facility]/ZIP Code Phon e Number [facility] [phone] SODIUM (10/30/2013 7:37 AM CDT) athologist Signature Sodium 140 135 - 145 [facility] mmol/L Specimen Anatomical Collection Method Collection Time Receive d Time (Source) Location / / Volume Laterality 10/30/2013 7:37 AM 4 7:39 CDT AM CDT Narrative [facility] - 10/30/2013 2:04 PM C DT Performed at [facility], [address] [place] [address] ??[phone] Alisha Kimball MD LAB_1 Performing Organization Address [facility] Code Phon e Number [facility] [phone] POTASSIUM (10/30/2013 7:37 AM CDT) athologist Signature Potassium 4.2 3.5 - 5.3 [facility] mmol/L Specimen Anatomical Collection Method Collection Time Receive d Time (Source) Location / / Volume Laterality 10/30/2013 7:37 AM 4 7:39 CDT AM CDT Narrative [facility] - 10/30/2013 2:04 PM C DT Performed at [facility], [address] [place] [address] ??[phone] Alisha Kimball MD LAB_1 Performing Organization Address City/[facility]/ZIP Code Phon e Number [facility] [phone] ALT (SGPT) (10/30/2013 7:37 AM CDT) athologist Signature ALT (SGPT) 52 0 - 69 U/L [facility] Specimen Anatomical Collection Method Collection Time Receive d Time (Source) Location / / Volume Laterality 10/30/2013 7:37 AM 4 7:39 CDT AM CDT Narrative [facility] - 10/30/2013 2:04 PM C DT Performed at [facility], [address] [place] [address] ??[phone] Alisha Kimball MD LAB_1 Performing Organization Address City/[facility] Code Phon e Number [facility] [phone] MICROALB/CREAT RATIO (10/30/2013 7:37 AM CDT) Patholo gist Method Time Signature Albumin, 0.6 mg/dl [facility] Urine, Random [facility] Creatinine,Ur 112.8 mg/dl [facility] Random [facility] Alb/Creat 5 <30 mg/g [facility] Ratio, Urine, creatinine LAB[facility]ATOR[facility] Random Specimen Anatomical Collection Method Collection Time Receive d Time (Source) Location / / Volume Laterality Urine specimen 10/30/2013 7:37 AM 014 7:40 (specimen) CDT AM CDT Narrative [facility] - 10/30/2013 1:21 PM C DT Performed at [facility], [address] [place] [address] ??[phone] Alisha Kimball MD LAB_1 Performing Organization Address [facility] Phon e Number [facility] [phone] CREATININE / GFR (10/30/2013 7:37 AM CDT) Analysis Performed At Path logist Time Signature Creatinine 0.73 0.52 - [facility] 1.04 mg/dl [facility] GFR, Estimated >60.0 >60 [facility] ml/min/1.7 [facility] 3m2 GFR, Est., If >60.0 >60 [facility] Black ml/min/1.7 [facility] 3m2 Specimen Anatomical Collection Method Collection Time Receive d Time (Source) Location / / Volume Laterality 10/30/2013 7:37 AM 201 4 7:39 CDT AM CDT Narrative [facility] - 10/30/2013 2:04 PM C DT Performed at [facility], [address] [place] [address] ??[phone] Alisha Kimball MD LAB_1 Performing Organization Address City/[facility]/ZIP [facility] Phon e Number [facility] [phone] (ABNORMAL) LIPID PANEL AND DIRECT LDL(IF NEEDED) (10/30/2013 7:37 AM CDT) Patholo gist Method Time Signature Hours Fasting 12 hours [facility] Cholesterol 140 0 - 199 [facility] mg/dl [facility] Triglyceride 118 0 - 149 [facility] mg/dl [facility] HDL 38 (L) >40 mg/dl [facility] LDL, Calc. 78 0 - 129 [facility] mg/dl [facility] Non HDL Chol, 102 mg/dl [facility] Calc [facility] Specimen Anatomical Collection Method Collection Time Receive d Time (Source) Location / / Volume Laterality 10/30/2013 7:37 AM 4 7:39 CDT AM CDT Narrative [facility] - 10/30/2013 2:04 PM C DT Performed at [facility], [address] [place] [address] ??[phone] Alisha Kimball MD LAB_1 Performing Organization Address [facility] Phon e Number [facility] [phone] (ABNORMAL) HGB A1C (10/30/2013 7:37 AM CDT) P athologist Signature Hgb A1c 7.0 (H) 4.3 - 6.1 [facility] % Comment: The usual A1C goal for people with diabe jaci, age 18-75, is <8.0%. Physicians may recommend a higher or lo wer goal for specific individuals. Specimen Anatomical Collection Method Collection Time Receive d Time (Source) Location / / Volume Laterality 10/30/2013 7:37 AM 4 7:39 CDT AM CDT Narrative [facility] - 10/30/2013 1:58 PM C DT Performed at [facility], [address] [place] [address] ??[phone] Alisha Kimball MD LAB_1 Performing Organization Address City/[facility] Phon e Number [facility] [phone] documented in this encounter Visit Diagnoses Diagnosis Diabetes mellitus, type 2 (HRC) Type II or unspecified type diabetes dinora litus without mention of complication, not stated as uncontrolled Hypercholesterolemia Pure hypercholesterolemia Hypertension (HRC) Unspecified essential hypertension Screening for thyroid disorder Screening, anemia, deficiency, iron Screening for iron deficiency anemia documented in this encounter Care Teams Sales Representative Electric Service Relationship Specialty Start Date End Date Alisha Kimball MD PCP - General 07/08/[address] [place] [address] documented as of this encounter
--- OUTSIDE RECORDS SUMMARY | 2022-04-07 07:27 | XMS_ITS | Encounter Summary ---
:1955 Author Organization [facility] Address [address] [place] [address] Care Team Providers Name Role Phone Alisha Kimball MD Primary Care Provider Reason for Visit Procedure/Equipment (Routine) - Incomplete Specialty Diagnoses / Procedures Referred By Contact Refer red To Contact Diagnoses Encounter for screening mammogram for malignant neoplasm of breast Alisha Kimball MD Procedures BILAT Mammogram screening [address] [place] [address] Referral ID Status Reason Start Date Expiration Date Visits V isits Requested Authorized [id number] Incomplete 10/30/2013 1 1 Encounter Details Date Type Department Care Team Description 11/01/2013 Imaging [facility] unter for screening Mammography mammogram for malignant [address] [place] [address] Social History Tobacco Use Types [...] Associated Diagnosis Comme nts MM MAMMOGRAM Routine 11/01/2013 9:19 AM Encounter for Results for this SCREENING BILAT W CDT screening mammogram pro cedure are in CAD for malignant the results neoplasm of breast section. documented in this encounter Results BILAT Mammogram screening (11/01/2013 [...] this encounter Visit Diagnoses Diagnosis Encounter for screening mammogram for ma lignant neoplasm of breast Other screening mammogram documented in this encounter Care Teams Fur Stylist Relationship Specialty Start Date End Date Alisha Kimball MD PCP - General 07/08/05 [address] [place] [address] documented as of this encounter
--- OUTSIDE RECORDS SUMMARY | 2022-04-07 07:27 | XMS_ITS | Encounter Summary ---
:1955 Author Organization [facility] Address [address] [facility] [place] [address] Care Team Providers Name Role Phone Alisha Kimball MD Primary Care Provider Encounter Details Date Type Department Care Team Description 11/01/2013 Orders Only [facility] MD [employer] Contact Bill [address] [place] [address] Mailstop [id number] [phone] (Wo rk) Social History Tobacco Use Types [...] on filedocumented in this encounter Care Teams Ndt Inspector Relationship Specialty Start Date End Date Alisha Kimball MD PCP - General 07/08/[address] [place] [address] documented as of this encounter
--- OUTSIDE RECORDS SUMMARY | 2022-04-07 07:27 | XMS_ITS | Encounter Summary ---
:1955 Author Organization [facility] Address [address], [place] [address] Care Team Providers Name Role Phone Alisha Kimball MD Primary Care Provider Reason for Visit Reason Onset Date Comments LAB TESTS, NOS 05/17/2014 Encounter Details Date Type Department Care Team Description 05/17/2014 Telephone [facility] Alisha Steinberg MD LAB TESTS, NOS [address] [facility]. [address] [place] [address] [place] [address] [phone] (Wo rk) Social History Tobacco Use Types Packs/Day Years Used Date Smoking Tobacco: Never Smokeless Tobacco: Never Alcohol Use Standard Drinks/Week Comments No 0 (1 standard drink = 0.6 oz pure alcoho l) Sex Assigned at Date Recorded Not on file documented as of this encounter Nursing Notes Alisha Kimball MD - 05/18/2014 2:54 PM CST OK. See orders. Alisha Kimball MD YLENE PLANT OPERATOR [facility] - 05/17/2014 7:04 PM CST Patient on Lab Only Visit Schedule, no lab orders found in patient's chart. Patient is coming in tiffanie A1C. Please review and enter Future Lab Orders or notify the patient that lab work is not needed. Lab Only Visit scheduled for: 05/21/14. After placing Future Orders, please route this Telephone Encounter to the following pool: [place] LAB POOL. Thank you YLENE PLANT OPERATOR documented in this encounter Plan of Treatment Not on filedocumented as of this encounter Results CREATININE / GFR (05/21/2014 7:33 AM ACETYLENE PLANT OPERATOR) Analysis Performed At Patho logist Time Signature Creatinine 0.90 0.52 - [facility] 1.04 mg/dl LAB[facility]ATORIES GFR, Estimated >60 >60 [facility] ml/min/1.7 LAB[facility]ATORIES 3m2 GFR, Est., If >60 >60 [facility] Black ml/min/1.7 LABORATORIES 3m2 Specimen Anatomical Collection Method Collection Time Receive d Time (Source) Location / / Volume Laterality 05/21/2014 7:33 AM 4 7:34 ACETYLENE PLANT OPERATOR AM ACETYLENE PLANT OPERATOR Narrative [facility] - 05/21/2014 1:[address] Performed at [facility], [address] [place] [address] ??[phone] Alisha Kimball MD LAB_1 Performing Organization Address [facility] Code Phon e Number [facility] [facility] [phone] (ABNORMAL) HGB A1C (05/21/2014 7:33 AM ACETYLENE PLANT OPERATOR) P athologist Signature Hgb A1c 7.5 (H) [...] Volume Laterality 05/21/2014 7:33 AM 4 7:34 ACETYLENE PLANT OPERATOR AM ACETYLENE PLANT OPERATOR Narrative [facility] - 05/21/2014 1:[address] Performed at [facility], [address] [place] [address] ??[phone] Alisha Kimball MD LAB_1 Performing Organization Address [facility]/ZIP Code Phon e Number [facility] [phone] documented in this encounter Visit Diagnoses Diagnosis Diabetes mellitus, type 2 (HRC) - Primar y Type II or unspecified type diabetes dinora litus without mention of complication, not stated as uncontrolled Diabetes mellitus, type 2 (HRC) Type II or unspecified type diabetes dinora litus without mention of complication, not stated as uncontrolled documented in this encounter Care Teams Soap Press Feeder Relationship Specialty Start Date End Date Alisha Kimball MD PCP - General 07/08/05 [address] [place] [address] documented as of this encounter
--- OUTSIDE RECORDS SUMMARY | 2022-04-07 07:27 | XMS_ITS | Encounter Summary ---
:1955 Author Organization [facility] Address [address] [place] [address] Care Team Providers Name Role Phone Alisha Kimball MD Primary Care Provider Reason for Visit Reason Comments Refill Encounter Details Date Type Department Care Team Description 04/15/2014 Refill [facility] Alisha Steinberg MD Refill [address]50 [facility] [address] [place] [address] [place], [place] [phone] (Wo rk) Social History Tobacco Use Types Packs/Day Years Used Date Smoking Tobacco: Never Smokeless Tobacco: Never Alcohol Use Standard Drinks/Week Comments No 0 (1 standard drink = 0.6 oz pure alcoho l) Sex Assigned at Date Recorded Not on file documented as of this encounter Nursing Notes Denice Faust RN - 04/16/2014 12:08 PM CDT per standing order Denice Faust RN 04/15/2014 7:44 PM CDT metFORMIN (AKA GLUCOPHAGE XR) 500 MG 24 hour release tablet [Pharmacy Med Name: METFORMIN HCL ER 500MG TB24] - WARNING: Ignore HbA1c check if Metformin is being used for PCOS only (not diabetes). - REFILL: 9 months (if warnings resolved) - PROTOCOL: Diabetes - Biguanides - RATIONALE: This refill should last until the patient is due for a(n) Cr check and HBA1C check. - LAST VISIT IN FAMILY PRACTICE: 10/30/2013 - NEXT SCHEDULED VISIT: None - LAST REFILLED ON: 12/16/2012, QTY: 180, Refills: 4, Sig: take 2 tabs by mouth daily with breakfast. (changed but equivalent) - Cr: 0.73mg/dL on 10/29/2013 - HBA1C: 7.0% on 10/29/2013 Powered by [employer], Reference: [id number], 04/15/2014 7:44:25 PM CDT, Pool: ARNOLD REFILL CAITLYN ([id number]) documented in this encounter Plan of Treatment Not on filedocumented as of this encounter Visit Diagnoses Not on filedocumented in this encounter Care Teams Lidar Scientist Relationship Specialty Start Date End Date Alisha Kimball MD PCP - General 07/08/05 [address] [place] [address] documented as of this encounter
--- OUTSIDE RECORDS SUMMARY | 2022-04-07 07:27 | XMS_ITS | Encounter Summary ---
:1955 Author Organization [facility] Address [address] [place] [address] Care Team Providers Name Role Phone Alisha Kimball MD Primary Care Provider Reason for Visit Reason Onset Date Comments ERRONEOUS ENTRY 04/17/2014 Encounter Details Date Type Department Care Team Description 04/17/2014 Telephone [facility] Alisha Kimball MD ERRONEOUS ENTRY [address] [facility]. [address] [place] [address] [place] [address] [phone] (Wo rk) Social History Tobacco Use Types [...] on filedocumented in this encounter Care Teams Backside Grinder Relationship Specialty Start Date End Date Alisha Kimball MD PCP - General 07/08/05 [address] [place], [place] [phone] documented as of this encounter
--- OUTSIDE RECORDS SUMMARY | 2022-04-07 07:27 | XMS_ITS | Encounter Summary ---
:1955 Author Organization [facility] Address [address] [place] [address] Care Team Providers Name Role Phone Alisha Kimball MD Primary Care Provider Encounter Details Date Type Department Care Team Description 10/30/2013 Orders Only [facility] Alisha Kimball, Diabetes mellitus, Practice type 2 (Primary Dx) [address] [facility]. [address] [place] [address] [place], [place] [phone] Social History Tobacco Use Types Packs/Day Years Used Date Smoking Tobacco: Never Smokeless Tobacco: Never Alcohol Use Standard Drinks/Week Comments No 0 (1 standard drink = 0.6 oz pure alcoho l) Sex Assigned at Date Recorded Not on file documented as of this encounter Plan of Treatment Not on filedocumented as of this encounter Results (ABNORMAL) HGB A1C (04/16/2014 7:33 AM CDT) P athologist Signature Hgb A1c 7.9 (H) 4.3 - 5.6 [facility] % Comment: PLEASE NOTE CHANGE IN REFERENCE RANGE See (NOTE) For patients not previously diagnosed wi th diabetes: 5.7-6.4%: Increased risk for diabetes (p rediabetic) 6.5% and greater: Diagnostic for diabete s ?? For diabetic patients: <8.0%: Goal of therapy for ages 18-75 - physicians may recommend a higher or lower goal for specific indiv iduals Specimen Anatomical Collection Method Collection Time Receive d Time (Source) Location / / Volume Laterality 04/16/2014 7:33 AM 4 7:34 CDT AM CDT Narrative [facility] - 04/16/2014 12:25 PM CDT Performed at [facility], [address] [place] [address] ??[phone] Alisha Kimball MD LAB_1 Performing Organization Address City/State/ZIP Code Phon e Number [facility] [phone] documented in this encounter Visit Diagnoses Diagnosis Diabetes mellitus, type 2 (HRC) - Primar y Type II or unspecified type diabetes dinora litus without mention of complication, not stated as uncontrolled Diabetes mellitus, type 2 (HRC) Type II or unspecified type diabetes dinroa litus without mention of complication, not stated as uncontrolled documented in this encounter Care Teams Tape Transferrer Relationship Specialty Start Date End Date Alisha Kimball MD PCP - General 07/08/05 [address] [place] [address] documented as of this encounter
--- OUTSIDE RECORDS SUMMARY | 2022-04-07 07:27 | XMS_ITS | Encounter Summary ---
:1955 Author Organization [facility] Address [address] [facility] [place] [address] Care Team Providers Name Role Phone Alisha Kimball MD Primary Care Provider Encounter Details Date Type Department Care Team Description 09/24/2013 Notes/Orders [facility] Alisha Kimball, Issue of repeat Practice MD prescriptions (Primary [address] [place]) [place] [address] [place], [place] [phone] [facility] Social History Tobacco Use Types Packs/Day Years Used Date Smoking Tobacco: Never Smokeless Tobacco: Never Alcohol Use Standard Drinks/Week Comments No 0 (1 standard drink = 0.6 oz pure alcoho l) Sex Assigned at Date Recorded Not on file documented as of this encounter Nursing Notes Kip Hoffman - 09/27/2013 7:03 AM CDT Pt has a lab appt on 09/29/13 for FLP and appt on 10/30/13 with pcp. No letter needed. Kip Hoffman CMA 09/27/2013, 7:04 AM Interface, Out Surescripts Prov Query - 09/24/2013 8:48 PM CDT SCHEDULE THE FOLLOWING: - BLOOD PRESSURE BY: 10/26/2013 (Coming due as of 10/26/2013 for amLODIPINE (AKA NORVASC) 5 MG tablet) - LIPID PANEL (12 HR. FASTING) BY: 12/11/2013 (Coming due as of 12/11/2013 for atorvastatin (AKA LIPITOR) 10 MG tablet) - LAST PRIMARY CARE VISIT: 10/31/2012 - NEXT PRIMARY CARE VISIT: 10/30/2013 - NEXT LAB APPOINTMENT: 09/29/2013 Powered by [employer], Reference: [id number], 09/24/2013 8:49:09 PM CDT documented in this encounter Plan of Treatment Not on filedocumented as of this encounter Visit Diagnoses Diagnosis Issue of repeat prescriptions - Primary documented in this encounter Care Teams Methods Analyst Data Processing Relationship Specialty Start Date End Date Alisha Kimball MD PCP - General 07/08/05 [address] [facility] [place] [address] documented as of this encounter
--- OUTSIDE RECORDS SUMMARY | 2022-04-07 07:27 | XMS_ITS | Encounter Summary ---
:1955 [address] [address] Address [address] [place] [address] Care Team Providers Name Role Phone Alisha Kimball MD Primary Care Provider Reason for Visit Reason Onset Date Comments LAB TESTS, NOS 09/22/2013 Encounter Details Date Type Department Care Team Description 09/22/2013 Telephone [facility] Alisha Kimball MD LAB TESTS, NOS [address] [place] [address] [place] [address] [phone] (Wo rk) Social History Tobacco Use Types Packs/Day Years Used Date Smoking Tobacco: Never Smokeless Tobacco: Never Alcohol Use Standard Drinks/Week Comments No 0 (1 standard drink = 0.6 oz pure alcoho l) Sex Assigned at Date Recorded Not on file documented as of this encounter Nursing Notes Floresita Morris LPN - 09/22/2013 1:39 PM CDT Orders placed. Floresita De León LPN 09/22/2013, 1:39 PM [facility] - 09/22/2013 1:34 PM CDT Patient on Lab Only Visit Schedule, no lab orders found in patient's chart. Patient coming in for anA1C and for cholesterol. Please review and enter Future Lab Orders or notify the patient that lab work is not needed. Lab Only Visit scheduled for: 09/29/13. After placing Future Orders, please route this Telephone Encounter to the following pool: [place] LAB POOL. Thank you documented in this encounter Plan of Treatment Not on filedocumented as of this encounter Results HEMOGRAM/PLTS (10/30/2013 7:37 AM CDT) P athologist Signature WBC 5.4 4.0 - 11.0 [...] 10/30/2013 1:03 PM C DT Performed at [facility], [address] [place] [address] ??[phone] Alisha Kimball MD LAB_1 Performing Organization Address City/State/ZIP Code Phon e Number [facility] [phone] TSH, SENSITIVE with FT4, FT3 (if needed) (10/30/2013 7:37 AM CDT) athologist Signature TSH, with 1.465 0.300 - [facility] Reflex 5.000 LABORATORIES uIU/ml Specimen Anatomical Collection Method Collection Time Receive d Time (Source) Location / / Volume Laterality 10/30/2013 7:37 AM 4 7:39 CDT AM CDT Narrative [facility] - 10/30/2013 2:45 PM C DT Performed at [facility], [address] [place] [address] ??[phone] Alisha Kimball MD LAB_1 Performing Organization Address City/[facility]/ZIP Code Phon e Number [facility] [phone] SODIUM (10/30/2013 7:37 AM CDT) athologist Signature Sodium 140 135 - 145 [facility] mmol/L Specimen Anatomical Collection Method Collection Time Receive d Time (Source) Location / / Volume Laterality 10/30/2013 7:37 AM 4 7:39 CDT AM CDT Narrative [facility] - 10/30/2013 2:04 PM C DT Performed at [facility], [address] [place] [address] ??[phone] Alisha Kimball MD LAB_1 Performing Organization Address City/[facility] Code Phon e Number [facility] [phone] POTASSIUM (10/30/2013 7:37 AM CDT) athologist Signature Potassium 4.2 3.5 - 5.3 [facility] mmol/L Specimen Anatomical Collection Method Collection Time Receive d Time (Source) Location / / Volume Laterality 10/30/2013 7:37 AM 4 7:39 CDT AM CDT Narrative [facility] - 10/30/2013 2:04 PM C DT Performed at [facility], [address] [place] [address] ??[phone] Alisha Kimball MD LAB_1 Performing Organization Address City/[facility] Phon e Number [facility] [phone] ALT (SGPT) (10/30/2013 7:37 AM CDT) athologist Signature ALT (SGPT) 52 0 - 69 U/L [facility] Specimen Anatomical Collection Method Collection Time Receive d Time (Source) Location / / Volume Laterality 10/30/2013 7:37 AM 4 7:39 CDT AM CDT Narrative [facility] - 10/30/2013 2:04 PM C DT Performed at [facility], [address] [place] [address] ??[phone] Alisha Kimball MD LAB_1 Performing Organization Address City/State/ZIP Code Phon e Number [facility] [phone] MICROALB/CREAT RATIO (10/30/2013 7:37 AM CDT) [facility] gist Method Time Signature Albumin, 0.6 mg/dl [...] 10/30/2013 1:21 PM C DT Performed at [facility], [address] [place] [address] ??[phone] Alisha Kimball MD LAB_1 Performing Organization Address City/[facility]/ZIP Code Phon e Number [facility] [phone] CREATININE / GFR (10/30/2013 7:37 AM CDT) Analysis Performed At [facility] logist Time Signature Creatinine 0.73 0.52 - [...] 10/30/2013 2:04 PM C DT Performed at [facility], [address] [place] [address] ??[phone] Alisha Kimball MD LAB_1 Performing Organization Address City/State/ZIP Code Phon e Number [facility] [phone] (ABNORMAL) LIPID PANEL AND DIRECT LDL(IF NEEDED) (10/30/2013 7:37 AM CDT) [facility] Method Time Signature Hours Fasting 12 [...] 10/30/2013 2:04 PM C DT Performed at [facility], [address] [place] [address] ??[phone] Alisha Kimball MD LAB_1 Performing Organization Address [facility] Phon e Number [facility] [phone] (ABNORMAL) HGB A1C (10/30/2013 7:37 AM CDT) [...] 10/30/2013 1:58 PM C DT Performed at [facility], [address] [place] [address] ??[phone] Alisha Kimball MD LAB_1 Performing Organization Address City/[facility] Phon e Number [facility] [phone] documented in this encounter Visit Diagnoses Diagnosis Diabetes mellitus, type 2 (HRC) - Primar y Type II or unspecified type diabetes dinora litus without mention of complication, not stated as uncontrolled Hypertension (HRC) Unspecified essential hypertension Hypercholesterolemia Pure hypercholesterolemia Screening for thyroid disorder Screening, anemia, deficiency, iron Screening for iron deficiency anemia Diabetes mellitus, type 2 (HRC) Type II or unspecified type diabetes dinora litus without mention of complication, not stated as uncontrolled Hypercholesterolemia Pure hypercholesterolemia Hypertension (HRC) Unspecified essential hypertension Screening for thyroid disorder Screening, anemia, deficiency, iron Screening for iron deficiency anemia documented in this encounter Care Teams Forgeman Helper Relationship Specialty Start Date End Date Alisha Kimball MD PCP - General 07/08/05 [address] [place] [address] documented as of this encounter
--- OUTSIDE RECORDS SUMMARY | 2022-04-07 07:27 | XMS_ITS | Encounter Summary ---
:1955 Author Organization [facility] Address [address], [place] [address] Care Team Providers Name Role Phone Alisha Kimball MD Primary Care Provider Reason for Visit Reason Comments Refill Encounter Details Date Type Department Care Team Description 12/09/2013 Refill [facility] Alisha Steinberg MD Refill [address] [facility]. [address] [place] [address] [place], [place] [phone] (Wo rk) Social History Tobacco Use Types Packs/Day Years Used Date Smoking Tobacco: Never Smokeless Tobacco: Never Alcohol Use Standard Drinks/Week Comments No 0 (1 standard drink = 0.6 oz pure alcoho l) Sex Assigned at Date Recorded Not on file documented as of this encounter Nursing Notes Meaghan Briggs RN - 12/12/2013 7:57 AM CDT per standing order. Meaghan Briggs RN 12/09/2013 2:54 PM CDT 1) amLODIPine (AKA NORVASC) 5 MG tablet [Pharmacy Med Name: AMLODIPINE 5MG TAB] - REFILL: 12 months - PROTOCOL: Calcium Channel Blockers - RATIONALE: This refill should last until the patient is due for an office visit check, DBP check and SBP check. - LAST PRIMARY CARE VISIT: 10/30/2013 - NEXT PRIMARY CARE VISIT: None - LAST REFILLED ON: 10/24/2012, QTY: 90, Refills: 4, Sig: take 1 tab by mouth daily. (changed but equivalent) - SBP: 123.0mm Hg on 10/30/2013 - DBP: 82.0mm Hg on 10/30/2013 2) atorvastatin (AKA LIPITOR) 10 MG tablet [Pharmacy Med Name: ATORVASTATIN CALCIUM 10MG TABS] - REFILL: 12 months - PROTOCOL: Antilipid: HMG-CoA Reductase Inhibitors - RATIONALE: This refill should last until the patient is due for an office visit check and LDL check. - LAST PRIMARY CARE VISIT: 10/30/2013 - NEXT PRIMARY CARE VISIT: None - LAST REFILLED ON: 09/24/2013, QTY: 90, Refills: 0, Sig: take 1 tablet by mouth daily. (unchanged) - LDL: 78.0mg/dL on 10/30/2013 Powered by [employer], Reference: [id number], 12/09/2013 2:55:15 PM CDT documented in this encounter Plan of Treatment Not on filedocumented as of this encounter Visit Diagnoses Diagnosis Unspecified essential hypertension (HRC) Unspecified essential hypertension Pure hypercholesterolemia documented in this encounter Care Teams Workers Compensation Administrator Relationship Specialty Start Date End Date Alisha Kimball MD PCP - General 07/08/[address] [place] [address] documented as of this encounter
--- OUTSIDE RECORDS SUMMARY | 2022-04-07 07:28 | XMS_ITS | Encounter Summary ---
:1955 Author Organization [facility] Address [address] [address] Care Team Providers Name Role Phone Alisha Kimball MD Primary Care Provider Reason for Visit Reason Comments DIABETES EDUCATION Encounter Details Date Type Department Care Team Description 07/08/2010 Office Visit [facility] Janiya Naqvi Diabet es mellitus type Program Meghann RN, CDE II ([facility]) (Primary Dx) [address] [place] [phone] Social History Tobacco Use Types Packs/Day Years Used Date Smoking Tobacco: Never Alcohol Use Standard Drinks/Week Comments Not Asked 0 (1 standard drink = 0.6 oz pure alcoho l) Sex Assigned at Date Recorded Not on file documented as of this encounter Last Filed Vital Signs Vital Sign Reading Time Taken Comments Blood Pressure - - Pulse - - Temperature - - Respiratory Rate - - Oxygen Saturation - - Inhaled Oxygen Concentration - - Weight 81.9 kg (180 lb 9.6 oz) 07/08/2010 4:50 PM FICTION AND NONFICTION AUTHOR Height - - Body Mass Index 30.76 04/28/2010 8:10 AM CDT documented in this encounter Progress Notes Janiya Naqvi RN, CDE - 07/08/2010 6:08 PM CST SUBJECTIVE Loc Velasco is referred by standing order for Diabetes Education. Accompanied by: unaccompanied Changes since last encounter: diet: eating smaller portions, no sweets, had some higher sugars over the L[place] weekend(no sweets, just too many carbs(dips, crackers,etc) Exercise: brisk walk(~1 mile)3 times/wk in the [facility] with friends before work, plans to join [employer] medication(s): none hypoglycemia: none monitoring blood sugars: 2 times daily at varying times I down 10 lbs in past 6 weeks OBJECTIVES SMBG pattern/BG ranges: Fasting 95-120,146 2hrs pc 195 Lunch 105,104; 2hrs pc 119 Supper 93,96; 2h pc 136,141 HS 99-157,183,197 ASSESSMENT Diabetes, Type 2, new onset and improved. Clinical goals not met include: Glycemia Education Assessment: Education topics reviewed: Acute Complications EDUCATION PLAN / PATIENT INSTRUCTIONS Your self-management goals: continue testing blood sugar twice daily Increase exercise program Appointments to be scheduled (Appointment center [phone]): Diabetes classes: is registered to attend 09/2010 Dietitian:is scheduled to see Viki Palm on 07/29/10 for consultation Diabetes Nurse Specialist: see 4-6 weeks post DM classes Time spent with the patient: 60 minutes for diabetes education and counseling. Janiya Naqvi RN, CDE 07/08/2010, 5:33 PM ION AND NONFICTION AUTHOR documented in this encounter Plan of Treatment Not on filedocumented as of this encounter Visit Diagnoses Diagnosis Diabetes mellitus type II (HRC) - Primar y Type II or unspecified type diabetes dinora litus without mention of complication, not stated as uncontrolled documented in this encounter Care Teams Tombstone Setter Relationship Specialty Start Date End Date Alisha Kimball MD PCP - General 07/08/05 [address] [place] [address] documented as of this encounter
--- OUTSIDE RECORDS SUMMARY | 2022-04-07 07:28 | XMS_ITS | Encounter Summary ---
:1955 Author Organization [facility] Address [address] [place] [address] Care Team Providers Name Role Phone Alisha Kimball MD Primary Care Provider Reason for Referral Specialty Diagnoses / Procedures Referred By Contact Refer red To Contact Alisha Kimball MD [address] [place] [address] Referral ID Status Reason Start Date Expiration Date Visits Requ ested Visits Authorized Scheduling Instructions If an appointment with [facility] and [facility] Health was advised and you have not been contacted to schedule that appo intment within 3 business days, please call [phone] for assistance. Specialty Diagnoses / Procedures Referred By Contact Refer red To Contact Alisha Kimball MD [address] [place] [address] Referral ID Status Reason Start Date Expiration Date Visits Requ ested Visits Authorized Scheduling Instructions If an [facility] was advised and you have not been contacted to schedule that appo intment within 3 business days, please call [phone] for assistance. Reason for Visit Reason Comments ROUTINE HEALTH MAINTENANCE Encounter Details Date Type Department Care Team Description 04/28/2010 Office Visit [facility] Alisha Kimball, [facility] (Primary Dx); Practice Breast screening, unspecified; [address] Screening for lipoid disorders; [place] [address] [place], [place] Diabetes mellitus screening; [phone] [id number] Screening; [phone] Thyroid disorde r screen; (Work) Family history of osteoporosis; [phone] Breast cancer s creening; (Fax) Symptoms involv ing skin and integumentary tissues; SK (seborrheic keratosis); Foot pain; Sleep disturban ce Social History Tobacco Use Types Packs/Day Years Used Date Smoking Tobacco: Never Alcohol Use Standard Drinks/Week Comments Not Asked 0 (1 standard drink = 0.6 oz pure alcoho l) Sex Assigned at Date Recorded Not on file documented as of this encounter Last Filed Vital Signs Vital Sign Reading Time Taken Comments Blood Pressure 124/92 04/28/2010 8:10 AM CDT Pulse 72 04/28/2010 8:10 AM CDT Temperature - - Respiratory Rate - - Oxygen Saturation - - Inhaled Oxygen Concentration - - Weight 85.7 kg (189 lb) 04/28/2010 8:10 AM CDT Height 163.2 cm (5' 4.25) 04/28/2010 8:10 AM CDT Body Mass Index 32.19 04/28/2010 8:10 AM CDT documented in this encounter Progress Notes Alisha Kimball - 04/28/2010 8:25 AM CDT S: Loc Velasco is a 55 yr old female [id number] seen today for a physical exam. She is status post hysterectomy and unilateral oophorectomy for benign disease. Remote H/O abnormal pap. Last cholesterol and mammogram reviewed. Last FBG 89 09/08. Colon cancer screening up to date with normal colonoscopy 2005, repeat in 8-10 years. Good home and car safety, which were reviewed. No concerns about domestic violence. She does not get regular exercise. Calcium intake was reviewed and recommendations were made for supplementation and a handout was given. Eye and dental exams reviewed. Sunscreen use reviewed. History Substance Use Topics ??? Tobacco Use: Never ??? Alcohol Use: Not on file Past Medical History Diagnosis Date ??? Normal delivery X 3 ??? Diverticulosis of colon Past Surgical History Procedure Date ??? Hysterectomy 1999 menorrhagia ??? Other - procedures 1998 [place] for stress incontinence Allergies Allergen Reactions ??? Sulfa Drugs Redness and Swelling Current outpatient prescriptions Medication Sig ??? Aspirin (ASPIR-81 OR) None Entered ??? docusate sodium (COLACE) 100 MG capsule None Entered ??? MULTIPLE VITAMIN OR None Entered ??? VITAMIN D OR None Entered Family History Problem Relation ??? Cancer, Ovary Maternal Grandmother 40's ??? Cancer, Ovary Mother 70's ??? Osteoporosis Mother ??? Osteoporosis Maternal Grandmother ??? Diabetes, Type II Mother ??? Hypertension Mother ??? Hypertension Father ??? Coronary Artery Disease Father ??? Cerebrovascular Disease Maternal Grandmother ??? Hyperlipidema Mother ??? Hyperlipidema Father ??? 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 Otherwise as above. ROS: A comprehensive review of systems was done today and was significant for a few concerns. 1. Not sleeping well. States she will have problems for about a week and then it will get better. She is not sure why this happens. Very tired during the day. Will fall asleep at her computer. Does getup to the bathroom at night, but this is not new. Never rested in the morning. No known snoring or apnea. If she takes Tylenol PM she sleeps better and somewhat more rested. 2. Left lateral foot pain for awhile. Night pain and pain with walking and any movement of her foot.Crunching sound. Dorsal and medial swelling. No redness or heat. 3. The tops of her feet sometimes hurt. No swelling, redness, or heat with this. Not related to certain shoes. 4. Skin lesions left chest and right upper back catch on clothing and itch and hurt. She would like them removed. Otherwise a comprehensive review of systems is negative. PE Please see the nurse's note for vitals signs. General: NAD Skin: no rash or worrisome lesions. Typical seborrheic keratoses right upper back and left chest, which are the bothersome lesions. Back lesion shows trauma. After permission was obtained these were frozen X 1 with liquid nitrogen. HEENT: PERRL/EOMI. TM's/canals normal. OP clear. Neck: supple. No LAD. No thyromegaly or mass. No bruit. Lungs: CTA bilaterally with good and equal air movement. CV: RRR, normal S1 and S2. No murmur, rub, or gallop. Peripheral pulses full and equal. Axillae: no mass or adenopathy. Breasts: no skin change, nipple discharge, tenderness to palpation, or mass. Abdomen: active bowel sounds, soft, nontender. No organomegaly or mass. : external genitalia and vaginal mucosa without lesions. A bimanual exam shows no mass. Extremities: no cyanosis, clubbing, or edema. Deep tendon reflexes are intact and symmetric. Left lateral mid-churn tender. No erythema, edema, increased warmth. CMS intact distally. X-ray: Mild degenerative spurring in the midfoot. A/P: 1. RHM. Please see today's orders. 2. Sleep problems. Will refer to sleep medicine to discuss sleep study for possible sleep apnea. 3. Left foot pain, cause not clear. May be the DJD. ?stress fracture. Does a lot of walking at work.Discussed Podiatry consult vs. bone scan and she would like to see Podiatry first. Symptomatic treatment for now. 4. Symptomatic seborrheic keratoses, status post cryotherapy. Routine wound care and follow up prn problems with healing or other concerns. 5. Family history osteoporosis. Will do DEXA. Alisha Kimball MD documented in this encounter Nursing Notes 04/28/2010 8:20 AM CDT >> Verónica Wilhelm LPN Mon Apr 28, 2010 8:16 AM Loc Velasco is here today for rhm. Are you having pain today, that you want to discuss with the provider? -NO BP was taken on the RIGHT arm. Large cuff used- YES Method of control? -Hysterectomy PARA 4004 Patient does Self Breast exams? -YES. Mammogram done? -Yes, date: 07/14. PAP done? -No Bone Density study done? -No testing done. HDL (mg/dl) Date Value 09/09/06 3:39 PM 40 LDL, CALC. (mg/dl) Date Value 09/09/06 3:39 PM 138 Immunizations reviewed? -YES Do you ever feel physically threatened or emotionally afraid? -NOT ASKED. Tobacco Status reviewed? (see History: Social-Substance) -YES home health attendant offered? -DECLINED. Aspirin taken daily? - YES Health Education given? -No. Patient's phone number Telephone Information: Mobile Not on file. Verónica Wilhelm LPN documented in this encounter Plan of Treatment Scheduled Referrals Name Type Priority Associated Diagnoses Order S chedule FOOT & ANKLE/PODIATRY Referral Routine Foot pain Ordere d: 04/28/2010 CONSULT-ADULT/PEDS SLEEP DISORDER Referral Routine Sleep disturbance Ordered: 05/01/2010 CONSULT-ADULT documented as of this encounter Procedures Procedure Name Priority Date/Time Associated Comments Diagnosis LIPID PANEL AND Routine 04/28/2010 8:57 AM Screening for Resul ts for this DIRECT LDL(IF CDT lipoid disorders procedure are in NEEDED) the results section. CREATININE / GFR Routine 04/28/2010 8:57 AM Screening Resul ts for this CDT procedure are i n the results section. COMPLETE BLOOD Routine 04/28/2010 8:57 AM Screening Results for this COUNT-NO DIFF CDT procedure are in the results section. TSH, SENSITIVE (WITH Routine 04/28/2010 8:57 AM Thyroid disord er Results for this REFLEX) CDT screen procedure are i n the results section. ALT (SGPT) Routine 04/28/2010 8:57 AM Screening Results f or this CDT procedure are i n the results section. GLUCOSE - FASTING > Routine 04/28/2010 8:57 AM Diabetes mellit us Results for this 8 HRS FASTING CDT screening procedure are in the results section. documented in this encounter Results MAMMOGRAM SCREENING BILATERAL (07/21/2010 9:27 AM CREDIT FRONT OFFICE DEVELOPER) Anatomical Region Laterality Modality Breast Bilateral Mammography Specimen (Source) Anatomical Location Collection Method / Collectio n Time Received Time / Laterality Volume Narrative 07/22/2010 2:03 PM CREDIT FRONT OFFICE DEVELOPER BILATERAL FULL FIELD DIGITAL SCREENING MAMMOGRAM Performed on 07/21/2010 Comparison: MAMMOGRAM SCREENING W/CAD BI LAT 07/16/09. Findings: The breasts have scattered fib roglandular densities. There is no radiographic evidence of malignancy.This study was evaluated with the assistance of Computer-Aided Detection. ??Repeat routine screening mammogram in one year is recommended. ACR BI-RADS Category 1: Negative Procedure Note Mai Berkowitz - 07/22/2010Formatting o f this note might be different from the original. BILATERAL FULL FIELD DIGITAL SCREENING M AMMOGRAM Performed on 07/21/2010 Comparison: MAMMOGRAM SCREENING W/CAD BI LAT 07/16/09. Findings: The breasts have scattered fib roglandular densities. There is no radiographic evidence of malignancy.This study was evaluated with the assistance of Computer-Aided Detection. Repeat routine screening mammogram in one year is recommended. ACR BI-RADS Category 1: Negative Alisha Kimball MD RAD MIKEY DEXA BONE DENSITY SPINE/HIP ROUTINE (05/15/2010 7:58 AM CREDIT FRONT OFFICE DEVELOPER) Anatomical Region Laterality Modality Lower Extremity, Spine, Hip, L-Spine Oth er Specimen (Source) Anatomical Location Collection Method / Collectio n Time Received Time / Laterality Volume Narrative 05/15/2010 8:11 AM CREDIT FRONT OFFICE DEVELOPER WHO Criteria for the diagnosis of osteoporosis: T-score >-1 Normal T-score between -1 and -2.5 Osteopenia T-score <-2.5 Osteoporosis Fracture risk: T-score -1 ?? 2 times increased ?-2 ?? 4 times incre ased ?-3 ?? 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 Country of origin:[place] Race: Medical/Surgical History Menstrual periods:1-None Age of menopause:46 Taking or have been taking Estrogen repl acement therapy for more than one year:No Family history of osteoporosis:Diagnosed by dexa scan Broken bones after the age of 45 not due to major trauma:No If yes, indicate which area: Currently taking medication for the prev ention/treatment of osteoporosis: 1-No Have or had listed medical conditions:Di abetes Had surgical procedures listed:Other Taking or have taken listed medications: 1-None Fallen in the last 12 months:No Dietary/Habit Alcohol 3units or more per day (on [place] ge):No Currently smoking:No If no, smoked for more than 2 years in t he past:No Do you take calcium supplements:No Regularly take vitamin D supplements:Yes Drink more than two cups of caffeinated coffee or soft drinks daily:No Other pertinent history:screening-hyster ectomy Dual-X-ray Absorptiometry (DXA Results) AP spine (L1-L4) Left hip (neck) Left h ip (total) Left forearm (1/3) BMD (gm/cm2) 1.137 1.200 1.183 ? T score 0.8 3.2 2.0 ? Z score 2.0 4.3 2.7 ?? %change from previous scan ?N/A Diagnosis: *No evidence of osteopenia/osteoporosis. Recommendations: *Ensure appropriate calcium and vitamin D intake. Comments: *Degenerative joint disease, compression fractures, or calcification artifacts may falsely increase bone mine ral density. *Progression of bone mineral content and area from L1-L4 does not follow the usual pattern. 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 Country of origin:[place] Race: Medical/Surgical History Menstrual periods:1-None Age of menopause:46 Taking or have been taking Estrogen repl acement therapy for more than one year:No Family history of osteoporosis:Diagnosed by dexa scan Broken bones after the age of 45 not due to major trauma:No If yes, indicate which area: Currently taking medication for the prev ention/treatment of osteoporosis: 1-No Have or had listed medical conditions:Di abetes Had surgical procedures listed:Other Taking or have taken listed medications: 1-None Fallen in the last 12 months:No Dietary/Habit Alcohol 3units or more per day (on avera ge):No Currently smoking:No If no, smoked for more than 2 years in t he past:No Do you take calcium supplements:No Regularly take vitamin D supplements:Yes Drink more than two cups of caffeinated coffee or soft drinks daily:No Other pertinent history:screening-hyster ectomy Dual-X-ray Absorptiometry (DXA Results) AP spine (L1-L4) Left hip (neck) Left h ip (total) Left forearm (1/3) BMD (gm/cm2) 1.137 1.200 1.183 T score 0.8 3.2 2.0 Z score 2.0 4.3 2.7 %change from previous scan N/A Diagnosis: *No evidence of osteopenia/osteoporosis. Recommendations: *Ensure appropriate calcium and vitamin D intake. Comments: *Degenerative joint disease, compression fractures, or calcification artifacts may falsely increase bone mineral density. *Progression of bone mineral content and area from L1-L4 does not follow the usual pattern. Alisha Kimball MD RAD DEXA XR FOOT LEFT (04/28/2010 9:25 AM CDT) Anatomical Region Laterality Modality Lower Extremity, Foot, Foot & Ankle Comp uted Radiography Specimen (Source) Anatomical Collection Method Collection Time Re ceived Time Location / / Volume Laterality 04/28/2010 9:25 AM CDT Narrative 04/28/2010 10:13 AM CDT LEFT FOOT, THREE-VIEW 04/28/2010 INDICATION: Pain. COMPARISON: Old report 04/02/2008. Direct films not available. FINDINGS: Mild degenerative change with slight hallux valgus deformity left great toe. Moderate sized plantar calca evon spur. Mild degenerative spurring in the midfoot. Otherwise negative Procedure Note [place] Link - 04/28/2010Formatting o f this note might be different from the original. LEFT FOOT, THREE-VIEW 04/28/2010 INDICATION: Pain. COMPARISON: Old report 04/02/2008. Direct films not available. FINDINGS: Mild degenerative change with slight hallux valgus deformity left great toe. Moderate sized plantar calca evon spur. Mild degenerative spurring in the midfoot. Otherwise negative Alisha Kimball MD RAD GD (ABNORMAL) GLUCOSE - FASTING > 8 HRS FASTING (V77.1) (04/28/2010 8:57 AM CDT) Patholo gist Method Time Signature Glucose 134 (H) 70 - 100 [facility] mg/dl Hours Fasting 15 hours [facility] Specimen Anatomical Collection Method Collection Time Receive d Time (Source) Location / / Volume Laterality 04/28/2010 8:57 AM 0 9:03 CDT AM CDT Alisha Kimball MD LAB_1 Performing Organization Address City/[facility] Phon e Number [employer] [phone] [address] ALT (SGPT) (04/28/2010 8:57 AM CDT) athologist Signature ALT (SGPT) 57 0 - 69 U/L [facility] Specimen Anatomical Collection Method Collection Time Receive d Time (Source) Location / / Volume Laterality 04/28/2010 8:57 AM 0 9:03 CDT AM CDT Alisha Kimball MD LAB_1 Performing Organization Address [facility] Phon e Number [employer] [phone] [address] CREATININE / GFR (04/28/2010 8:57 AM CDT) Analysis Performed At Patho logist Time Signature Creatinine 0.79 0.52 - [facility] 1.04 mg/dl GFR, Estimated >60.0 >60 [facility] ml/min/1.7 3m2 GFR, Est., If >60.0 >60 [facility] Black ml/min/1.7 3m2 Specimen Anatomical Collection Method Collection Time Receive d Time (Source) Location / / Volume Laterality 04/28/2010 8:57 AM 0 9:03 CDT AM CDT Alisha Kimball MD LAB_1 Performing Organization Address City/State/ZIP Code Phon e Number [facility] [employer] [phone] [address] HEMOGRAM/PLTS (04/28/2010 8:57 AM CDT) athologist Signature WBC 7.0 4.0 - 11.0 [facility] k/ul RBC 5.06 4.0 - 5.2 [facility] M/ul Hemoglobin 14.9 12.0 - 16.0 [facility] g/dl HCT 45.1 36.0 - 46.0 [facility] % MCV 89.2 80 - 100 fl [facility] MCH 29.5 26 - 34 pg [facility] MCHC 33.1 32 - 36 [facility] g/dl RDW 13.2 11.5 - 14.5 [facility] % Platelets 263 150 - 450 [facility] k/ul Specimen Anatomical Collection Method Collection Time Receive d Time (Source) Location / / Volume Laterality 04/28/2010 8:57 AM 0 9:03 CDT AM CDT Alisha Kimball MD LAB_1 Performing Organization Address City/[facility]/ZIP Code Phon e Number [employer] [phone] [address] TSH, SENSITIVE (WITH REFLEX)[[id number]] - Clinics ONLY (04/28/2010 8:57 AM CDT) athologist Signature TSH, with 1.966 0.465 - [facility] Reflex 4.68 uIU/ml Specimen Anatomical Collection Method Collection Time Receive d Time (Source) Location / / Volume Laterality 04/28/2010 8:57 AM 0 9:03 CDT AM CDT Alisha Kimball MD LAB_1 Performing Organization Address City/[facility]/ZIP Code Phon e Number [employer] [phone] [address] (ABNORMAL) LIPID PANEL AND DIRECT LDL(IF NEEDED) (04/28/2010 8:57 AM CDT) [facility] gist Method Time Signature Cholesterol 241 (H) 0 - 199 [facility] mg/dl Triglyceride 202 (H) 0 - 149 [facility] mg/dl HDL 44 >40 mg/dl [facility] LDL, Calc. 157 (H) 0 - 129 [facility] mg/dl Hours Fasting 15 hours [facility] Specimen Anatomical Collection Method Collection Time Receive d Time (Source) Location / / Volume Laterality 04/28/2010 8:57 AM 201 0 9:03 CDT AM CDT Alisha Kimball MD LAB_1 Performing Organization Address City/State/ZIP Code Phon e Number [facility] [phone] [facility] [address] [address] documented in this encounter Visit Diagnoses Diagnosis Preventative health care - Primary Routine general medical examination at a health care facility Breast screening, unspecified Screening for lipoid disorders Diabetes mellitus screening Screening for diabetes mellitus Screening Screening for unspecified condition Thyroid disorder screen Screening for thyroid disorder Family history of osteoporosis Symptoms involving skin and integumentar y tissues Other symptoms involving skin and integu mentary tissues SK (seborrheic keratosis) Other seborrheic keratosis Foot pain Pain in limb Sleep disturbance Sleep disturbance, unspecified Foot pain Pain in limb Family history of osteoporosis Breast cancer screening Breast screening, unspecified documented in this encounter Care Teams Urban Forester Relationship Specialty Start Date End Date Alisha Kimball MD PCP - General 07/08/05 [address] [place], [place] [id number] documented as of this encounter
--- OUTSIDE RECORDS SUMMARY | 2022-04-07 07:28 | XMS_ITS | Encounter Summary ---
:1955 Author Organization [facility] Address [address] [place] [address] Care Team Providers Name Role Phone Alisha Kimball MD Primary Care Provider Reason for Visit Reason Comments DIABETES, MELLITUS Encounter Details Date Type Department Care Team Description 10/31/2012 Office Visit [facility] Alisha Kimball, Diabetes mellitus type II (HRC) (Primary Dx); Practice MD Need for prophylactic vaccination agains t Streptococcus pneumoniae (pneumococcus); [address] Hypercholesterolemia; [place] [address] [place], [place] Elevated liver enzymes [phone] Social History Tobacco Use Types Packs/Day Years Used Date Smoking Tobacco: Never Smokeless Tobacco: Never Alcohol Use Standard Drinks/Week Comments No 0 (1 standard drink = 0.6 oz pure alcoho l) Sex Assigned at Date Recorded Not on file documented as of this encounter Last Filed Vital Signs Vital Sign Reading Time Taken Comments Blood Pressure 128/86 10/31/2012 3:48 PM CDT Pulse 83 10/31/2012 2:59 PM CDT Temperature - - Respiratory Rate 12 10/31/2012 2:59 PM CDT Oxygen Saturation - - Inhaled Oxygen Concentration - - Weight 81.7 kg (180 lb 3.2 oz) 10/31/2012 2:59 PM CDT Height - - Body Mass Index 30.69 10/24/2012 8:53 AM CDT documented in this encounter Patient Instructions Patient InstructionsAlisha Kimball MD - 10/31/2012 3:43 PM CDT For diabetes: 1. Start metformin XR 500 mg once in the morning. Call with problems. 2. Check a few morning glucoses (goal<140) and glucoses about 2 hours after your evening meal (goal <180). 3. We will call you in about 2 weeks to see how you are doing. For cholesterol: 1. Start atorvastatin 10 mg at bedtime. Call with problems. 2. If you are doing well, please return for fasting labs in 4 weeks. The lab has orders and you can make a Lab Only appointment online or by calling [phone]. Understanding Optimal Diabetes Care Goals The five optimal diabetes care goals shown below were designed to measure how well your diabetes is being managed. When all five goals are achieved, your risk for health problems associated with diabetes is greatly reduced. The [employer] [facility] Team is available to help you reach your goals. Diabetes is a disease requiring daily attention. For this reason, you are the most important person of the [employer] [facility] Team. Name: Loc Velasco Guideline Goal What it is and why it is important Previous Result/ Current Result A1c less than 8.0% Measures how well you have controlled your blood glucose in the last 12-16 weeks HGB A1C (%) Date Value 10/24/2012 10.5* 10/24/2011 8.1* Blood Pressure 139/89 or lower Controlling your blood pressure can help prevent complications, such as heart disease, stroke, kidney disease and eye disease BP Readings from Last 1 Encounters: 10/31/12 127/90 LDL 99 or lower Measures the level of ???bad?? cholesterol. Keeping this low will help prevent heart disease LDL, CALC. (mg/dl) Date Value 10/24/2012 151* Tobacco use Tobacco Free Tobacco use and diabetes increase your risk for heart disease and together your risk significantly increases reports that she has never smoked. She has never used smokeless tobacco. Aspirin Daily if advised Reduces the tendency of blood to stick together which helps reduce the riskfor heart attack or stroke Taking Aspirin? yes If you have any questions regarding your optimal disease care goals, please contact your primary care provider and together let us reach our health goals. There are classes available to you throughout the year to give you the support you need to make healthy lifestyle choices. For a list of these classes, please visit [email or web address] and click on the Health and Wellness tab or call the appointment center at [phone] to register for a class. Depending on your insurance coverage, a fee to participate in certain classes may apply documented in this encounter Progress Notes Alisha Kimball MD - 10/31/2012 8:01 PM CDT S: Loc Velasco is a 57 yr old female never smoker seen for follow up of her type 2 diabetes. Shewas seen for a [facility] visit recently and she had her labs repeated: HGB A1C (%) Date Value 10/24/2012 10.5* LDL, CALC. (mg/dl) Date Value 10/24/2012 151* . CREATININE (mg/dl) Date Value 10/24/2012 0.68 ALT (SGPT) (U/L) Date Value 10/24/2012 72* No history of abnormal liver enzymes. No EtOH use. She does not take marissa medication for her diabetes or cholesterol. Since seeing her lab results she has been trying to eat better. Has lost some weight. Does not want insulin. Morning glucoses 160-170. Pre-dinner glucoses 130's. O: BP 128/86 Pulse 83 Resp 12 Wt 180 lb 3.2 oz (81.738 kg) BMI 30.69 kg/m2. No exam was done today. A/P: 1. Type II diabetes. Not at goal. Again, declines insulin. She is committed to weight loss and exercise. Declines lidder and diabetes nurse visits. See the patient instructions. 2. Hypercholesterolemia. Not at goal. Discussed recommendations and she will try atorvastatin. Will follow liver enzymes. Likely has fatty liver. Additional labs as ordered. Alisha Kimball MD documented in this encounter Plan of Treatment Not on filedocumented as of this encounter Results (ABNORMAL) HGB A1C (12/16/2012 7:33 AM CDT) P athologist Signature Hgb A1c 8.1 (H) 4.3 - 6.1 [facility] % Comment: The usual A1C goal for people with diabe jaci, age 18-75, is <8.0%. Physicians may recommend a higher or lo wer goal for specific individuals. Specimen Anatomical Collection Method Collection Time Receive d Time (Source) Location / / Volume Laterality 12/16/2012 7:33 AM 3 7:39 CDT AM CDT Narrative [facility] - 12/16/2012 2:00 PM C DT Performed at [facility], [address] [place] [address] ??[phone] Alisha Kimball MD LAB_1 Performing Organization Address [facility] Phon e Number [facility] [phone] LIVER PANEL(HEPATIC FUNCTION PANEL) (12/16/2012 7:33 AM CDT) [facility] Method Time Signature Alkaline 90 38 - 126 [facility] Phosphatase U/L [facility] Bilirubin, Total 0.9 0.2 - 1.3 [facility] mg/dl [facility] Bilirubin, 0.0 0.0 - 0.3 [facility] Direct mg/dl [facility] ALT (SGPT) 54 0 - 69 U/L [facility] AST (SGOT) 31 0 - 55 U/L [facility] Protein, Total 7.3 6.3 - 8.2 [facility] g/dl [facility] Albumin 4.3 3.5 - 5.0 [facility] g/dl [facility] A/G Ratio, calc. 1.4 >1.0 [facility] Specimen Anatomical Collection Method Collection Time Receive d Time (Source) Location / / Volume Laterality 12/16/2012 7:33 AM 3 7:39 CDT AM CDT Narrative [facility] - 12/16/2012 12:42 PM CDT Performed at [facility], [address] [place] [address] ??[phone] Alisha Kimball MD LAB_1 Performing Organization Address [facility] Phon e Number [facility] [phone] LIPID PANEL AND DIRECT LDL(IF NEEDED) (12/16/2012 7:33 AM CDT) [employer] Method Time Signature Hours Fasting 12 hours [facility] Cholesterol 140 0 - 199 [facility] mg/dl [facility] Triglyceride 101 0 - 149 [facility] mg/dl [facility] HDL 47 >40 mg/dl [facility] LDL, Calc. 73 0 - 129 [facility] mg/dl [facility] Non HDL Chol, 93 mg/dl [facility] Calc [facility] Specimen Anatomical Collection Method Collection Time Receive d Time (Source) Location / / Volume Laterality 12/16/2012 7:33 AM 3 7:39 CDT AM CDT Narrative [facility] - 12/16/2012 12:42 PM CDT Performed at [facility], [address] [place] [address] ??[phone] Alisha Kimball MD LAB_1 Performing Organization Address City/State/ZIP Code Phon e Number [facility] [phone] documented in this encounter Visit Diagnoses Diagnosis Diabetes mellitus type II (HRC) - Primar y Type II or unspecified type diabetes dinora litus without mention of complication, not stated as uncontrolled Need for prophylactic vaccination agains t Streptococcus pneumoniae (pneumococcus) Need for prophylactic vaccination agains t streptococcus pneumoniae (pneumococcus) Hypercholesterolemia Pure hypercholesterolemia Elevated liver enzymes Nonspecific elevation of levels of trans aminase or lactic acid dehydrogenase (LDH) Diabetes mellitus type II (HRC) Type II or unspecified type diabetes dinora litus without mention of complication, not stated as uncontrolled Hypercholesterolemia Pure hypercholesterolemia Elevated liver enzymes Nonspecific elevation of levels of trans aminase or lactic acid dehydrogenase (LDH) documented in this encounter Care Teams Systems Requirements Planner Relationship Specialty Start Date End Date Alisha Kimball MD PCP - General 07/08/05 [address] [place] [address] documented as of this encounter
--- OUTSIDE RECORDS SUMMARY | 2022-04-07 07:28 | XMS_ITS | Encounter Summary ---
:1955 Author Organization [facility] Address [address] [place] [address] Care Team Providers Name Role Phone Alisha Kimball MD Primary Care Provider Encounter Details Date Type Department Care Team Description 05/14/2010 Orders Only [facility] Hyperglycemia [address] [place] [address] Social History Tobacco Use Types [...] Associated Diagnosis Comme nts HGB A1C Routine 05/14/2010 7:35 AM Hyperglycemia Results for this MOLDER MACHINE TENDER procedure are i n the results section. GLUCOSE - FASTING > Routine 05/14/2010 7:35 AM Hyperglycemia R esults for this 8 HRS FASTING MOLDER MACHINE TENDER procedure are in the results section. documented in this encounter Results (ABNORMAL) GLUCOSE - FASTING > 8 HRS FASTING (V77.1) (05/14/2010 7:35 AM MOLDER MACHINE TENDER) [facility] Method Time Signature Glucose 106 (H) 70 - 100 [facility] mg/dl Hours Fasting 12 hours [facility] Specimen Anatomical Collection Method Collection Time Receive d Time (Source) Location / / Volume Laterality 05/14/2010 7:35 AM 0 7:46 MOLDER MACHINE TENDER AM MOLDER MACHINE TENDER Alisha Kimball MD LAB_1 Performing Organization Address City/State/ZIP Code Phon e Number [facility] [phone] [facility] [address] [phone] (ABNORMAL) HGB A1C (05/14/2010 7:35 AM MOLDER MACHINE TENDER) athologist Signature Hgb A1c 7.4 (H) 4.3 - 6.1 % [facility] Comment: The usual A1C goal for people with diabe jaci, age 18-75, is < 7.0%. Physicians may recommend a higher or lo wer goal for specific individuals. Specimen Anatomical Collection Method Collection Time Receive d Time (Source) Location / / Volume Laterality 05/14/2010 7:35 AM 0 7:46 MOLDER MACHINE TENDER AM MOLDER MACHINE TENDER Alisha Kimball MD LAB_1 Performing Organization Address City/State/ZIP Code Phon e Number [facility] [phone] [phone] documented in this encounter Visit Diagnoses Diagnosis Hyperglycemia Other abnormal glucose documented in this encounter Care Teams Public Safety Police Relationship Specialty Start Date End Date Alisha Kimball MD PCP - General 07/08/05 [address] [place] [address] documented as of this encounter
--- OUTSIDE RECORDS SUMMARY | 2022-04-07 07:28 | XMS_ITS | Encounter Summary ---
:1955 Author Organization [facility] Address [address] [place] [address] Care Team Providers Name Role Phone Alisha Kimball MD Primary Care Provider Reason for Visit Reason Onset Date Comments RESULTS, X-RAY 04/02/2008 Encounter Details Date Type Department Care Team Description 04/02/2008 Telephone [facility] Alexis Frazier, PAEb RESULTS, X-RAY [address] [place] [address] [place], [place] [phone] (Wo rk) Social History Tobacco Use Types Packs/Day Years Used Date Smoking Tobacco: Never Alcohol Use Standard Drinks/Week Comments Not Asked 0 (1 standard drink = 0.6 oz pure alcoho l) Sex Assigned at Date Recorded Not on file documented as of this encounter Nursing Notes Deepthi Cabrera - 04/06/2008 11:10 AM CDT Unable to reach pt by phone, letter sent. Deepthi Cabrera CMA Deepthi Cabrera - 04/04/2008 2:52 PM CDT LMTCB Deepthi Cabrera CMA Deepthi Cabrera - 04/02/2008 9:00 AM CDT LMTCB Deepthi Cabrera CMA Notes recorded by Alexis Ponce on 03/30/2008 at 10:42 PM Notify patient no fracture. Has heel spurs. F/U with podiatry. Alexis Ponce PA-C documented in this encounter Plan of Treatment Not on filedocumented as of this encounter Visit Diagnoses Not on filedocumented in this encounter Care Teams Network Security Analyst Relationship Specialty Start Date End Date Alisha Kimball MD PCP - General 07/08/05 [address] [place] [address] documented as of this encounter
--- OUTSIDE RECORDS SUMMARY | 2022-04-07 07:28 | XMS_ITS | Encounter Summary ---
:1955 Author Organization [facility] Address [address] [facility] [address] Care Team Providers Name Role Phone Alisha iKmball MD Primary Care Provider Reason for Visit Reason Onset Date Comments QUESTIONS, GENERAL 11/04/2011 Encounter Details Date Type Department Care Team Description 11/04/2011 Telephone [facility] maxi Alisha Kimball MD QUESTIONS, GENERAL [address] [place] [address] [place], [place] [phone] (Wo rk) Social History Tobacco Use Types Packs/Day Years Used Date Smoking Tobacco: Never Alcohol Use Standard Drinks/Week Comments No 0 (1 standard drink = 0.6 oz pure alcoho l) Sex Assigned at Date Recorded Not on file documented as of this encounter Nursing Notes Francesca Cho CMA - 11/04/2011 9:45 AM CDT Patient informed and agree's with plan. I sent her to [facility] to schedule with procedure nurse. TOT Ben Calero - 11/04/2011 9:15 AM CDT Patient would like to speak to her either provider or nurse. Name of patient's provider: BAILEY Question regarding: Future Appointment Summarize the patient's question or concern: pt states Told her to contact her nurse, Rishi, and set up a time BP check. Pt would like to be seen this afternoon. Rishi- please call pt back. Thanks, Ben Calero documented in this encounter Plan of Treatment Not on filedocumented as of this encounter Visit Diagnoses Not on filedocumented in this encounter Care Teams Threshing Department Supervisor Relationship Specialty Start Date End Date Alisha Kimball MD PCP - General 07/08/05 [address] [place] [address] documented as of this encounter
--- OUTSIDE RECORDS SUMMARY | 2022-04-07 07:28 | XMS_ITS | Encounter Summary ---
:1955 Author Organization [facility] Address [address] [place] [address] Care Team Providers Name Role Phone Alisha Kimball MD Primary Care Provider Encounter Details Date Type Department Care Team Description 05/15/2010 Imaging [facility] [address] Fami ly history of Bone Density osteoporosis [address] [place] [address] Social History Tobacco Use Types Packs/Day [...] Diagnosis Comme nts DXA BONE DENSITY Routine 05/15/2010 7:58 AM Family history of Results for this SPINE/HIP GAMING HOST osteoporosis procedure are i n the results section. documented in this encounter Results DEXA BONE DENSITY SPINE/HIP ROUTINE (05/15/2010 7:58 AM GAMING HOST) Anatomical Region Laterality Modality Lower Extremity, Spine, Hip, L-Spine Oth er Specimen (Source) Anatomical Location Collection Method / Collectio n Time Received Time / Laterality Volume Narrative 05/15/2010 8:11 AM GAMING HOST WHO Criteria for the diagnosis of osteoporosis: T-score >-1 Normal T-score between -1 and -2.5 Osteopenia T-score <-2.5 Osteoporosis Fracture risk: T-score -1 ?? 2 times increased ?-2 ?? 4 times incre ased ?-3 ?? 6 times incre ased *With previous fragility fracture, risk of subsequent fracture doubles again SCREENING FOR OSTEO, HOLD CALCIUM Ice Cream Freezer and Model of Instrument: LoveThis Demographics Age: 55 yr Gender: female Height [...] Alcohol 3units or more per day (on [employer]):No Currently smoking:No If no, smoked for more [...] doubles again SCREENING FOR OSTEO, HOLD CALCIUM Ice Cream Freezer and Model of Instrument: [employer] Demographics Age: 55 yr Gender: female Height [...] Alcohol 3units or more per day (on [employer]):No Currently smoking:No If no, smoked for more [...] usual pattern. Alisha Kimball MD RAD DEXA documented in this encounter Visit Diagnoses Diagnosis Family history of osteoporosis documented in this encounter Care Teams Acid Pumper Relationship Specialty Start Date End Date Alisha Kimball MD PCP - General 07/08/05 [address] [place] [address] documented as of this encounter
--- OUTSIDE RECORDS SUMMARY | 2022-04-07 07:28 | XMS_ITS | Encounter Summary ---
:1955 Author Organization [email or web address] Address [address] [place] [address] Care Team Providers Name Role Phone Alisha Kimball MD Primary Care Provider Reason for Visit Reason Comments LAB RESULTS glucose Encounter Details Date Type Department Care Team Description 04/28/2010 Telephone [facility] Alisha Kimball MD LAB RESULTS (glucose) Practice [address] [place] [address] [place], [place] [address] [phone] Social History Tobacco Use Types Packs/Day Years Used Date Smoking Tobacco: Never Alcohol Use Standard Drinks/Week Comments Not Asked 0 (1 standard drink = 0.6 oz pure alcoho l) Sex Assigned at Date Recorded Not on file documented as of this encounter Nursing Notes Francesca Cho CMA - 04/29/2010 9:25 AM CDT I called and let Melia know. She will make appointment with lab for the blood draw. Francesca Cho TOT Alisha Kimball - 04/28/2010 10:37 PM CDT Please call Melia. Her glucose is elevated and in a diabetes range (134), which may or may not mean she has diabetes. This should be repeated at her convenience (1-2 weeks) and will also do A1C. See orders. Thanks! lAisha Kimball MD documented in this encounter Plan of Treatment Not on filedocumented as of this encounter Results (ABNORMAL) GLUCOSE - FASTING > 8 HRS FASTING (V77.1) (05/14/2010 7:35 AM REGIONAL SERVICE MANAGER) Patholo gist Method Time Signature Glucose 106 (H) 70 - 100 [facility] mg/dl Hours Fasting 12 hours [facility] Specimen Anatomical Collection Method Collection Time Receive d Time (Source) Location / / Volume Laterality 05/14/2010 7:35 AM 0 7:46 REGIONAL SERVICE MANAGER AM REGIONAL SERVICE MANAGER Alisha Kimball MD LAB_1 Performing Organization Address City/[facility] Phon e Number [facility] [phone] [phone] (ABNORMAL) HGB A1C (05/14/2010 7:35 AM REGIONAL SERVICE MANAGER) athologist Signature Hgb A1c 7.4 (H) 4.3 - 6.1 % [facility] Comment: The usual A1C goal for people with diabe jaci, age 18-75, is < 7.0%. Physicians may recommend a higher or lo wer goal for specific individuals. Specimen Anatomical Collection Method Collection Time Receive d Time (Source) Location / / Volume Laterality 05/14/2010 7:35 AM 0 7:46 REGIONAL SERVICE MANAGER AM REGIONAL SERVICE MANAGER Alisha Kimball MD LAB_1 Performing Organization Address City/[facility] Phon e Number [facility] [phone] [address] documented in this encounter Visit Diagnoses Diagnosis Hyperglycemia - Primary Other abnormal glucose documented in this encounter Care Teams Group Underwriter Relationship Specialty Start Date End Date Alisha Kimball MD PCP - General 07/08/05 [address] [place] [address] documented as of this encounter
--- OUTSIDE RECORDS SUMMARY | 2022-04-07 07:28 | XMS_ITS | Encounter Summary ---
:1955 Author Organization [facility] Address [address] [facility] [place] [address] Care Team Providers Name Role Phone Alisha Kimball MD Primary Care Provider Reason for Visit Reason Onset Date Comments PHARMACIST COUNSELING 01/02/2013 diabetes Encounter Details Date Type Department Care Team Description 01/02/2013 Pharmacy [facility] Daria Galvez PHARMAC IST COUNSELING Pharmacy PharmD (diabetes) [address] [facility]. [address] [place] [address] [place], [place] [phone] [address] (Wo rk) Social History Tobacco Use Types [...] on filedocumented in this encounter Care Teams Musculoskeletal Physician Relationship Specialty Start Date End Date Alisha Kimball MD PCP - General 07/08/05 [address] [place], [place] [id number] documented as of this encounter
--- OUTSIDE RECORDS SUMMARY | 2022-04-07 07:28 | XMS_ITS | Encounter Summary ---
:1955 Author Organization [facility] Address [address] [place] [address] Care Team Providers Name Role Phone Alisha Kimball MD Primary Care Provider Encounter Details Date Type Department Care Team Description 09/21/2011 Imaging [facility] ury Mammography [address] [place] [address] Social History Tobacco Use Types [...] Associated Diagnosis Comme nts MM MAMMOGRAM Routine 09/21/2011 8:44 AM Results f or this SCREENING BILAT W CDT procedure are in CAD the results section. documented in this encounter Results MAMMOGRAM SCREENING BILATERAL (09/21/2011 8:44 AM CDT) Anatomical Region Laterality Modality Breast Bilateral Mammography Specimen (Source) Anatomical Location Collection Method / Collectio n Time Received Time / Laterality Volume Narrative 09/22/2011 1:19 PM CDT BILATERAL FULL FIELD DIGITAL SCREENING MAMMOGRAM Performed on 09/21/2011 Comparison: MAMMOGRAM SCREENING W/CAD BI LAT 07/16/09. Findings: The breasts are fatty replaced . There is no radiographic evidence of malignancy. This study was e valuated with the assistance of Computer-Aided Detection. ??Repeat routi ne screening mammogram in one year is recommended. ACR BI-RADS Category 1: Negative Procedure Note Glen Amaya MD - 09/22/2011Forma tting of this note might be different from the original. BILATERAL FULL FIELD DIGITAL SCREENING M AMMOGRAM Performed on 09/21/2011 Comparison: MAMMOGRAM SCREENING W/CAD BI LAT 07/16/09. Findings: The breasts are fatty replaced . There is no radiographic evidence of malignancy. This study was evaluated with the assistance of Computer-Aided Detection. Repeat routine screening mammogram in one year is recommended. ACR BI-RADS Category 1: Negative Alisha Kimball MD RAD MIKEY documented in this encounter Visit Diagnoses Not on filedocumented in this encounter Care Teams Import Clerk Relationship Specialty Start Date End Date Alisha Kimball MD PCP - General 07/08/05 [address] [place] [address] documented as of this encounter
--- OUTSIDE RECORDS SUMMARY | 2022-04-07 07:28 | XMS_ITS | Encounter Summary ---
:1955 Author Organization Replaced by [facility] Address [address] [place] [address] Care Team Providers Name Role Phone Alisha Kimball MD Primary Care Provider Encounter Details Date Type Department Care Team Description 01/13/2013 Orders Only [facility] Diabetes mellitus type II [address] (HRC) [place] [address] Social History Tobacco Use Types [...] Diagnosis Comme nts CREATININE / GFR Routine 01/13/2013 7:33 AM Diabetes mellitus Results for this CDT type II (HRC) procedure are in the results section. HGB A1C Routine 01/13/2013 7:33 AM Diabetes mellitus Resu lts for this CDT type II (HRC) procedure are in the results section. documented in this encounter Results CREATININE / GFR (01/13/2013 7:33 AM CDT) Analysis Performed At Patho logist Time Signature Creatinine 0.75 0.52 - [facility] 1.04 mg/dl LABORATORIES GFR, Estimated >60.0 >60 [facility] ml/min/1.7 LABORATORIES 3m2 GFR, Est., If >60.0 >60 [facility] Black ml/min/1.7 LABORATORIES 3m2 Specimen Anatomical Collection Method Collection Time Receive d Time (Source) Location / / Volume Laterality 01/13/2013 7:33 AM 3 7:38 CDT AM CDT Narrative [facility] - 01/13/2013 12:39 PM CDT Performed at [facility], [address] [place] [address] ??[id number] Alisha Kimball MD LAB_1 Performing Organization Address [facility] Phon e Number [facility] [phone] (ABNORMAL) HGB A1C (01/13/2013 7:33 AM CDT) P athologist Signature Hgb A1c 7.4 (H) 4.3 - 6.1 [facility] % Comment: The usual A1C goal for people with diabe jaci, age 18-75, is <8.0%. Physicians may recommend a higher or lo wer goal for specific individuals. Specimen Anatomical Collection Method Collection Time Receive d Time (Source) Location / / Volume Laterality 01/13/2013 7:33 AM 3 7:38 CDT AM CDT Narrative [facility] - 01/13/2013 3:07 PM C DT Performed at [facility], [address] [place] [address] ??[id number] Alisha Kimball MD LAB_1 Performing Organization Address [facility] e Number [facility] [phone] documented in this encounter Visit Diagnoses Diagnosis Diabetes mellitus type II (HRC) Type II or unspecified type diabetes dinora litus without mention of complication, not stated as uncontrolled documented in this encounter Care Teams Ophthalmic Technician Relationship Specialty Start Date End Date Alisha Kimball MD PCP - General 07/08/05 [address] [place] [address] documented as of this encounter
--- OUTSIDE RECORDS SUMMARY | 2022-04-07 07:28 | XMS_ITS | Encounter Summary ---
:1955 Author Organization [employer] Address [address] [facility] [place] [address] Care Team Providers Name Role Phone Alisha Kimball MD Primary Care Provider Reason for Visit Reason Onset Date Comments LAB TESTS, NOS 10/26/2011 Encounter Details Date Type Department Care Team Description 10/26/2011 Telephone [facility] Alisha Steinberg MD LAB TESTS, NOS [address] [facility]. [address] [place] [address] [place] [address] [phone] (Wo rk) Social History Tobacco Use Types Packs/Day Years Used Date Smoking Tobacco: Never Alcohol Use Standard Drinks/Week Comments No 0 (1 standard drink = 0.6 oz pure alcoho l) Sex Assigned at Date Recorded Not on file documented as of this encounter Nursing Notes Alisha Kimball MD - 10/26/2011 5:08 PM CDT Aware. Alisha Kimball MD Kareen Dugan - 10/26/2011 4:46 PM CDT It was requested that we add on a Lipid panel to this patient from Wednesday, but we do not have the appropriate sample. [facility]. documented in this encounter Plan of Treatment Not on filedocumented as of this encounter Visit Diagnoses Not on filedocumented in this encounter Care Teams Egg Grader Relationship Specialty Start Date End Date Alisha Kimball MD PCP - General 07/08/05 [address] [place] [address] documented as of this encounter
--- OUTSIDE RECORDS SUMMARY | 2022-04-07 07:28 | XMS_ITS | Encounter Summary ---
:1955 Author Organization [facility] Address [address] [place] [address] Care Team Providers Name Role Phone Alisha Kimball MD Primary Care Provider Encounter Details Date Type Department Care Team Description 04/28/2010 Imaging [facility] Foot pain [address] [place] [address] Social History Tobacco Use Types [...] Diagnosis Comme nts XR FOOT LT Routine 04/28/2010 9:25 AM Foot pain Results f or this AP/MO/LAT CDT procedure are i n the results section. documented in this encounter Results XR FOOT LEFT (04/28/2010 9:25 AM CDT) [...] Otherwise negative Alisha Kimball MD RAD GD documented in this encounter Visit Diagnoses Diagnosis Foot pain Pain in limb documented in this encounter Care Teams Ophthalmology Technician Relationship Specialty Start Date End Date Alisha Kimball MD PCP - General 07/08/05 [address] [place] [address] documented as of this encounter
--- OUTSIDE RECORDS SUMMARY | 2022-04-07 07:28 | XMS_ITS | Encounter Summary ---
:1955 Author Organization [employer] Address [address] [place] [address] Care Team Providers Name Role Phone Alisha Kimball MD Primary Care Provider Reason for Visit Reason Onset Date Comments DIABETES EDUCATION 09/26/2010 Encounter Details Date Type Department Care Team Description 09/24/2010 Office Visit [facility] Diabetes u ncomplicated Program adult-type II (Primary Dx) [address] [place] [address] Social History Tobacco Use Types Packs/Day Years Used Date Smoking Tobacco: Never Alcohol Use Standard Drinks/Week Comments Not Asked 0 (1 standard drink = 0.6 oz pure alcoho l) Sex Assigned at Date Recorded Not on file documented as of this encounter Progress Notes Adali Arora RN, CDE - 09/26/2010 9:11 AM CDT Loc Velasco attended the 4 hour class part 1 of 2 in the diabetes class series Diabetes -PuttingYourself In The Marketing Intern's Seat using conversation maps. Referring provider: Alisha Kimball MD Content areas included: Describing the diabetes disease process and treatment options Monitoring blood glucose, urine ketones (when appropriate), and using the results to improve control. Utilizing medications (if applicable) for therapeutic effectiveness Preventing, detecting and treating acute complications Preventing (through risk reduction behavior) detecting and treating chronic complications Integrating psychosocial adjustment into daily life Goal setting to promote health, and problem solving for daily living A total of 240 minutes spent with patient in education and counseling. Adali Arora RN CDE 09/26/2010 9:11 AM documented in this encounter Plan of Treatment Not on filedocumented as of this encounter Visit Diagnoses Diagnosis Diabetes uncomplicated adult-type II - P rimary Type II or unspecified type diabetes dinora litus without mention of complication, not stated as uncontrolled documented in this encounter Care Teams Comic Writer Relationship Specialty Start Date End Date Alisha Kimball MD PCP - General 07/08/05 [address] [place] [address] documented as of this encounter
--- OUTSIDE RECORDS SUMMARY | 2022-04-07 07:28 | XMS_ITS | Encounter Summary ---
:1955 Author Organization [facility] Address [address] [place] [address] Care Team Providers Name Role Phone Alisha Kimball MD Primary Care Provider Encounter Details Date Type Department Care Team Description 10/24/2011 Orders Only [facility] Diabetes mellitus type II [address] (HRC) [place] [address] Social History Tobacco Use Types [...] Associated Diagnosis Comme nts HGB A1C Routine 10/24/2011 9:31 AM Diabetes mellitus Resu lts for this CDT type II ([facility]) procedure are in the results section . documented in this encounter Results (ABNORMAL) HGB A1C (10/24/2011 9:31 AM CDT) P athologist Signature Hgb A1c 8.1 (H) 4.3 - 6.1 % [facility] Comment: The usual A1C goal for people with diabe jaci, age 18-75, is < 7.0%. Physicians may recommend a higher or lo wer goal for specific individuals. Specimen Anatomical Collection Method Collection Time Receive d Time (Source) Location / / Volume Laterality 10/24/2011 9:31 AM 2 9:41 CDT AM CDT Alisha iKmball MD LAB_1 Performing Organization Address City/State/ZIP Code Phon e Number [facility] [phone] [facility] [address] [phone] documented in this encounter Visit Diagnoses Diagnosis Diabetes mellitus type II (HRC) Type II or unspecified type diabetes dinora litus without mention of complication, not stated as uncontrolled documented in this encounter Care Teams Veneer Supervisor Relationship Specialty Start Date End Date Alisha Kimball MD PCP - General 07/08/05 [address] [place] [address] documented as of this encounter
--- OUTSIDE RECORDS SUMMARY | 2022-04-07 07:28 | XMS_ITS | Encounter Summary ---
:1955 Author Organization [employer] Address [address] [place] [address] Care Team Providers Name Role Phone Alisha Kimball MD Primary Care Provider Reason for Visit Reason Onset Date Comments CLASS,DIABETES DIABETES EDUCATION 09/29/2010 Encounter Details Date Type Department Care Team Description 09/30/2010 Office Visit [facility] Pr ogram DM w/o complication type [address] II, uncontrolled ([place] [address] Dx) [phone] Social History Tobacco Use Types Packs/Day Years Used Date Smoking Tobacco: Never Alcohol Use Standard Drinks/Week Comments Not Asked 0 (1 standard drink = 0.6 oz pure alcoho l) Sex Assigned at Date Recorded Not on file documented as of this encounter Progress Notes Meaghan Palm RD, LEO - 10/07/2010 5:56 PM CDT Loc Velasco attended the 4 hour class part 2 of 2 in the diabetes class series Diabetes -PuttingYourself In The Director Global Sales's Seat using conversation maps. Incorporating appropriate nutritional management (healthy eating, carbohydrate counting, low sodium,low fat, low saturated fat and label reading) Incorporating physical activity into lifestyle to help manage diabetes Review goal setting to promote health and problem solving for daily living A total of 240 minutes spent with patient in education and counseling. Meaghan Palm RD, LEO 09/29/2010 5:55 PM documented in this encounter Plan of Treatment Not on filedocumented as of this encounter Visit Diagnoses Diagnosis Type II or unspecified type diabetes dinora litus without mention of complication, uncontrolled - Primary documented in this encounter Care Teams Industrial Economics Teacher Relationship Specialty Start Date End Date Alisha Kimball MD PCP - General 07/08/05 [address] [place] [address] documented as of this encounter
--- OUTSIDE RECORDS SUMMARY | 2022-04-07 07:28 | XMS_ITS | Encounter Summary ---
:1955 Author Organization [employer] Address [address] [place] [address] Care Team Providers Name Role Phone Alisha Kimball MD Primary Care Provider Reason for Visit Reason Comments Nutrition Counseling Encounter Details Date Type Department Care Team Description 07/29/2010 Office Visit [facility] Meaghan Palm, Diab etes mellitus type Clinic RD, LD II ([facility]) (Primary Dx) [address] [place] [address] Social History Tobacco Use Types Packs/Day Years Used Date Smoking Tobacco: Never Alcohol Use Standard Drinks/Week Comments Not Asked 0 (1 standard drink = 0.6 oz pure alcoho l) Sex Assigned at Date Recorded Not on file documented as of this encounter Progress Notes Meaghan Palm, RD, LD - 07/29/2010 2:39 PM CST SUBJECTIVE: Loc Velasco was referred by Alisha Kimball MD for initial medical nutrition therapy for Type 2 Diabetes. Pt was accompanied by:alone Current situation: pt highly Motivated to drop weight and increase exercise, doesn't want to take any diabetic medications. Pt has lost 12 lbs Prior nutrition education/familiarity with meal planning: high, followed a low carb high protein diet in the past PSYCHOSOCIAL HX Pt lives With spouse, who is following similar eating habits. 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 Changes since dx: eating smaller portions, no sweets, Large amount of vegetables and protein in diet Exercise: brisk walk(~1 mile)3 times/wk in the [facility] with friends before work, thinking about to join [employer] but hasn't gotten to it yet. NUTRITION HX Appetite: likes salt and crispy, but good for ice cream Recent Changes in diet: lower portion high protein Food Preparation: Where food is eaten: work and home, rarely eats out Meal preparation/shopping:share Use of Convenience food: low, tends to prepare most of food ex. Frozen dinners for lunch at work. Restaurants/Takeout:low Food Record / Dietary recall: Breakfast @ around 5:30 egg wrap with vegetable Beverage milk or water, little juice. coffee. Snack - 9am rhona, Lunch @ noon soup with lots of vegetables with wasa cracker, or lean cuisine - lower calories with added vegetable Beverage water, not much diet pop once a week. Snack - lite yogurt, Ciespace bar or Glucerna Dinner @ around 5-5:30 Meatloaf, courtney slaw or veggies, yam.. Beverage water. Snacks: worse time is here- fruit, crackers and peanut butter, almonds 10-15 . OBJECTIVE: Wt Readings from Last 3 Encounters: 07/08/2010 180 lb 9.6 oz (81.92 kg) 04/28/2010 189 lb (85.73 kg) 05/07/2009 187 lb (84.823 kg) Prior Encounter Medications Medication Sig Dispense Refill ??? Aspirin (ASPIR-81 OR) None Entered ??? blood glucose (ACCU-CHEK STACEY) strip two times a day. 100 Each PRN ??? docusate sodium (COLACE) 100 MG capsule None Entered ??? lancets (ACCU-CHEK MULTICLIX LANCETS) two times a day. 100 Each prn ??? MULTIPLE VITAMIN OR None Entered ??? VITAMIN D OR None Entered HGB A1C (%) Date Value 05/14/10 7:35 AM 7.4* LDL, CALC. (mg/dl) Date Value 04/28/10 8:57 AM 157* GLUCOSE (mg/dl) Date Value 09/09/06 3:39 PM 89 GLUCOSE,FASTING (mg/dl) Date Value 05/14/10 7:35 AM 106* Instruction Provided at today's appt: Materials used:My Meal Plan, Optional: Serving size reference, Carb Counting Activity, Suggested Menus, High Fiber foods, Advised Calorie level - continue at 1400 calories Medical Nutrition Therapy (MNT) Assessment: Type 2 Diabetes Pt Does understand concepts of controlled carb meal plan. Calorie Intake. 6476-1630 calories with 15-30 grams of carb per meal Protein Intake: very high, calculated at 85 grams per Day. Around 26-28% total calories Vit/Mineral Intake: excellent Carb/Fiber/Sugar: Intake of foods rich in fiber is very good, limited natural as well as processed sugar in diet.. Fat/Saturated Fat Intake. Saturated fat intake is above ideal with evidence of dairy intake amounts of high fat meat/dairy products, butter, eggs. Prepares food with olive or canola oil, Use of MUFA-nuts, seeds, olive and canola oil - often some use of omega 3 rich foods Sodium Intake of processed foods, restaurant prepared items and salt at the table is low. PLAN Behavior Change Goals: - Choose 1-2 carb grams/choices for meals and 1 carb grams/choices for 2-3 snacks. - Eat three evenly spread meals per day most days of the week, use snacks . - - Increase carb in diet, consistently - do not skip. - Decrease saturated fat in diet. - Choose foods with <300 mg sodium per serving most of the time. - Choose foods with 1-3 g sat fat and no trans fats per serving most of the time - - Measure portions using measuring cups, spoons, chart provided. - Consume up to 3 caffeinated beverages per day and at least 6 glasses of water/hydrating liquid. . Referrals: will be attending September diabetes class Next medical nutrition therapy visit scheduled for: jeannine Pt was invited to call or email this provider in the future if any questions or problems arise. Meaghan Palm RD, MS, CDE 07/29/2010 60 minutes in education and counseling OPERATOR documented in this encounter Plan of Treatment Not on filedocumented as of this encounter Visit Diagnoses Diagnosis Diabetes mellitus type II ([facility]) - Primar y Type II or unspecified type diabetes dinora litus without mention of complication, not stated as uncontrolled documented in this encounter Care Teams Machine Assembler For Puller Over Relationship Specialty Start Date End Date Alisha Kimball MD PCP - General 07/08/05 [address] [place] [address] documented as of this encounter
--- OUTSIDE RECORDS SUMMARY | 2022-04-07 07:28 | XMS_ITS | Encounter Summary ---
:1955 Author Organization [facility] Address [address], [place] [address] Care Team Providers Name Role Phone Alisha Kimball MD Primary Care Provider Reason for Visit Reason Comments DIABETES EDUCATION Encounter Details Date Type Department Care Team Description 06/05/2010 Office Visit [facility] Janiya Naqvi Diabet es mellitus type Program CAITLYN Zavaleta, CDE II ([facility]) (Primary Dx) [address] [place] [phone] Social History Tobacco Use Types Packs/Day Years Used Date Smoking Tobacco: Never Alcohol Use Standard Drinks/Week Comments Not Asked 0 (1 standard drink = 0.6 oz pure alcoho l) Sex Assigned at Date Recorded Not on file documented as of this encounter Patient Instructions Patient InstructionsJaniya Naqvi RN, CDE - 06/05/2010 5:22 PM ENGLISH AS A SECOND LANGUAGE TEACHER 1. Test blood sugar 1-2 times daily--before meals or 2 hours after a meal 2. Attend diabetes classes in 2-3 months 3. See a[place] diabetes nurse on Wednesday at 430PM 4. Schedule appointment to see dietitian ISH AS A SECOND LANGUAGE TEACHER documented in this encounter Progress Notes Janiya Naqvi RN, CDE - 06/05/2010 5:15 PM CST SUBJECTIVE Loc Velasco is referred by Dr.Karen Kimball([facility]) for Diabetes Education. Accompanied by: unaccompanied, prefers being addressed as Melia Previous Diabetes Education? No Reason for visit per patient to learn SMBG and more about diabetes In your own words, what is diabetes? Sugar is too high in the blood What are your thoughts and feelings about diabetes? I'd like to try to control this w/o medication On a scale of 1-5, where 5 is the highest, what is your level of stress right now? 3 Diabetes medications taken: none Physical Activity: walks 3 days per wk and plans to join [employer] Diet/Eating Habits: eats 3 meals /day, has increased veggies, eats low carb bread or wrap, has reduced portions, eliminated evening snacking, drinks plenty of water, also drinks skim milk Brfst: sm bowl of oatmeal w/blueberries Lunch brings lunch to work Supper meat, salad and other veg and rhona Hypoglycemia/DKA history: no problems noted. OBJECTIVE BG 97, 1.5 hours after eating SMBG pattern/BG ranges: Does not monitor ASSESSMENT Diabetes, Type 2, uncontrolled and new onset. Clinical goals not met include: Glycemia Education Assessment: Education topics reviewed: General assessment of all topic areas Diabetes disease process Monitoring Medications (oral agents) Physical activity/exercise Nutrition Acute Complications Successful return demonstration of: Care and use of AccuChek Edilma meter and lancing device EDUCATION PLAN / PATIENT INSTRUCTIONS Your self-management goals: 1. Test blood sugar 1-2 times daily--before meals or 2 hours after a meal Appointments to be scheduled (Appointment center [phone]): 1. Attend diabetes classes in 2-3 months 2. See [place] diabetes nurse on Wednesday at 430PM Time spent with the patient: 60 minutes for diabetes education and counseling. Janiya Naqvi RN, CDE 06/05/2010, 4:35 PM ISH AS A SECOND LANGUAGE TEACHER documented in this encounter Plan of Treatment Not on filedocumented as of this encounter Visit Diagnoses Diagnosis Diabetes mellitus type II ([facility]C) - Primar y Type II or unspecified type diabetes dinora litus without mention of complication, not stated as uncontrolled documented in this encounter Care Teams Armature Winder Relationship Specialty Start Date End Date Alisha Kimball MD PCP - General 07/08/05 [address] [place] [address] documented as of this encounter
--- OUTSIDE RECORDS SUMMARY | 2022-04-07 07:28 | XMS_ITS | Encounter Summary ---
:1955 Author Organization [facility] Address [address] [place] [address] Care Team Providers Name Role Phone Alisha Kimball MD Primary Care Provider Reason for Referral Procedure/Equipment (Routine) - Closed Specialty Diagnoses / Procedures Referred By Contact Refer red To Contact Procedures Wy Mammogram MAMMOGRAM SCREENING BILATERAL [address] [place] [address] Referral ID Status Reason Start Date Expiration Date Visits Requ ested Visits Authorized [id number] Closed 10/24/2012 1 1 Reason for Visit Procedure/Equipment (Routine) - Closed Specialty Diagnoses / Procedures Referred By Contact Refer red To Contact Procedures Wy Mammogram MAMMOGRAM SCREENING BILATERAL [address] [facility] [place] [address] Referral ID Status Reason Start Date Expiration Date Visits Requ ested Visits Authorized [id number] Closed 10/24/2012 1 1 Encounter Details Date Type Department Care Team Description 10/24/2012 Imaging [facility] Mammography [address] [place] [address] Social History Tobacco Use Types [...] Associated Diagnosis Comme nts MM MAMMOGRAM Routine 10/24/2012 8:29 AM Results f or this SCREENING BILAT W CDT procedure are in CAD the results section. documented in this encounter Results MAMMOGRAM SCREENING BILATERAL (10/24/2012 8:29 AM CDT) Anatomical Region Laterality Modality Breast Bilateral Mammography Specimen (Source) Anatomical Location Collection Method / Collectio n Time Received Time / Laterality Volume Narrative 10/24/2012 1:22 PM CDT BILATERAL FULL FIELD DIGITAL SCREENING MAMMOGRAM Performed on 10/24/2012 Comparison: MAMMOGRAM SCREENING W/CAD BI LAT 07/21/10. Findings: The breasts have scattered fib roglandular densities. There is no radiographic evidence of malignancy.This study was evaluated with the assistance of Computer-Aided Detection. ??Repeat routine screening mammogram in one year is recommended. ACR BI-RADS Category 1: Negative Procedure Note Glen Amaya MD - 10/24/2012Forma tting of this note might be different from the original. BILATERAL FULL FIELD DIGITAL SCREENING M AMMOGRAM Performed on 10/24/2012 Comparison: MAMMOGRAM SCREENING W/CAD BI LAT 07/21/10. Findings: The breasts have scattered fib roglandular densities. There is no radiographic evidence of malignancy.This study was evaluated with the assistance of Computer-Aided Detection. Repeat routine screening mammogram in one year is recommended. ACR BI-RADS Category 1: Negative Alisha Kimball MD RAD MIKEY documented in this encounter Visit Diagnoses Not on filedocumented in this encounter Care Teams Wind Energy Mechanic Relationship Specialty Start Date End Date Alisha Kimball MD PCP - General 07/08/05 [address] [place] [address] documented as of this encounter
--- OUTSIDE RECORDS SUMMARY | 2022-04-07 07:28 | XMS_ITS | Encounter Summary ---
:1955 Author Organization [facility] Address [address] [place] [address] Care Team Providers Name Role Phone Alisha Kimball MD Primary Care Provider Reason for Visit Reason Comments EXAM,ROUTINE patient is having problems w ith her near vison, she currently wears no glasses Encounter Details Date Type Department Care Team Description 04/28/2010 Office Visit [facility] Lebron Alfaro, Examination of eyes and visi on (Primary Dx); [address] OD Myopia; [place] [address] Presbyopia [phone] Social History Tobacco Use Types Packs/Day Years Used Date Smoking Tobacco: Never Alcohol Use Standard Drinks/Week Comments Not Asked 0 (1 standard drink = 0.6 oz pure alcoho l) Sex Assigned at Date Recorded Not on file documented as of this encounter Patient Instructions Patient InstructionsLebron Alfaro, OD - 04/28/2010 10:46 AM CDT Thank you for choosing [facility] for your eye care needs. Many tests were done to check your eye health today including: pupil reaction, eye muscle function, peripheral (side) vision, visual acuity, and eye pressure. The health of your eyes was also checked, both on the outside as well as the inside of each eye. Your eyeglass prescription or contact prescription may have also been updated. Early detection of eye health problems is important to keep your eyes healthy over your lifetime. Atyour eye exam we are looking for signs of glaucoma, diabetes, high blood pressure, cataract, dry eye, eye allergies, and many other conditions. Frequently Asked Questions: Why do you use eye drops? We use a clear drop to dilate, or open the pupil wider. This allows us to have a clearer, wider view inside the eye to look for signs of eye disease. We use a different eye drop to check the pressure inside the eye; this is usually the yellow eye drop. How long will my eyes be blurry today? Your vision will be blurry up close for about an hour, and your eyes will stay dilated for about 4 hours. You will need to wear sunglasses when you are outside today. If you do not have any sunglasses with you, there are some disposable ones available. Please usecaution in getting around for the few hours that your eyes are dilated. How can I contact the clinic in the future? Appointment Center: [phone] Eye Dept: [phone] Online Services: [email or web address] For after hours care, call the CareLine at [phone] or . We look forward to taking care of your eye care needs in the years to come. documented in this encounter Progress Notes Lebron Alfaro, OD - 04/28/2010 11:07 AM CDT HPI Chief Complaint Patient presents with ??? EXAM,ROUTINE patient is having problems with her near vison, she currently wears no glasses History Reviewed Assessment Myopia, presbyopia Plan Spectacle Prescription given Return to clinic in 2 year(s) for a full exam. Lebron Alfaro OD documented in this encounter Plan of Treatment Not on filedocumented as of this encounter Visit Diagnoses Diagnosis Examination of eyes and vision - Primary Myopia Presbyopia documented in this encounter Care Teams Fittings Tightener Relationship Specialty Start Date End Date Alisha Kimball MD PCP - General 07/08/05 [address] [place] [address] documented as of this encounter
--- OUTSIDE RECORDS SUMMARY | 2022-04-07 07:28 | XMS_ITS | Encounter Summary ---
:1955 Author Organization [facility] Address [address] [facility] [place] [address] Care Team Providers Name Role Phone Alisha Kimball MD Primary Care Provider Reason for Visit Reason Onset Date Comments Pharmacy 12/16/2012 diabetes Encounter Details Date Type Department Care Team Description 12/16/2012 Pharmacy [facility] Daria Vallecillo, Pharmacy (diabetes) [address] [facility] [place] [address] [address] [facility] [phone] [place], [place] [address] (Wo rk) Social History Tobacco Use Types [...] on filedocumented in this encounter Care Teams City Manager Relationship Specialty Start Date End Date Alisha Kimball MD PCP - General 07/08/[address] [place], [place] [id number] documented as of this encounter
--- OUTSIDE RECORDS SUMMARY | 2022-04-07 07:28 | XMS_ITS | Encounter Summary ---
:1955 Author Organization [facility] Address [address] [address] Care Team Providers Name Role Phone Alisha Kimball MD Primary Care Provider Reason for Visit Reason Comments ROUTINE HEALTH MAINTENANCE eyes are burning/ ears itch y for a while/ refill bp med/ check varicose veins are itc hy/ pap/ breast exam Encounter Details Date Type Department Care Team Description 10/24/2012 Office Visit [facility] Alisha Kimball, [facility] (Primary Dx); Practice MD Screening breast examination; [address] Breast cancer screening; [place] [address] [place] [address] Diabetes mellitus type II (HRC); [phone] Hypertension; (Work) Dry eyes; Varicose veins of leg with pain Social History Tobacco Use Types Packs/Day Years Used Date Smoking Tobacco: Never Smokeless Tobacco: Never Alcohol Use Standard Drinks/Week Comments No 0 (1 standard drink = 0.6 oz pure alcoho l) Sex Assigned at Date Recorded Not on file documented as of this encounter Last Filed Vital Signs Vital Sign Reading Time Taken Comments Blood Pressure 132/87 10/24/2012 8:53 AM CDT Pulse 73 10/24/2012 8:53 AM CDT Temperature 36.6 ??C (97.9 ??F) 10/24/2012 8:53 AM CDT Respiratory Rate - - Oxygen Saturation - - Inhaled Oxygen Concentration - - Weight 82.1 kg (181 lb) 10/24/2012 8:53 AM CDT Height 163.2 cm (5' 4.25) 10/24/2012 8:53 AM CDT Body Mass Index 30.83 10/24/2012 8:53 AM CDT documented in this encounter Patient Instructions Patient Alisha Viveros MD - 10/24/2012 9:26 AM CDT Images from the original note were not included. Understanding Optimal Diabetes Care Goals The five optimal diabetes care goals shown below were designed to measure how well your diabetes is being managed. When all five goals are achieved, your risk for health problems associated with diabetes is greatly reduced. The [employer] Diabetes Team is available to help you reach your goals. Diabetes is a disease requiring daily attention. For this reason, you are the most important person of the [employer] Diabetes Team. Name: Loc Velasco Guideline Goal What it is and why it is important Previous Result/ Current Result A1c less than 8.0% Measures how well you have controlled your blood glucose in the last 12-16 weeks HGB A1C (%) Date Value 10/24/2011 8.1* 05/14/2010 7.4* Blood Pressure 139/89 or lower Controlling your blood pressure can help prevent complications, such as heart disease, stroke, kidney disease and eye disease BP Readings from Last 1 Encounters: 10/24/12 132/87 LDL 99 or lower Measures the level of ???bad?? cholesterol. Keeping this low will help prevent heart disease LDL, CALC. (mg/dl) Date Value 04/28/2010 157* Tobacco use Tobacco Free Tobacco use and [...] a list of these classes, please visit [email or web address] and click on the Health and Wellness tab or call the appointment center at [phone] to register for a class. Depending on your insurance coverage, a fee to participate in certain classes may apply Dry Eyes: After Your Visit Your Care Instructions Dry eyes may feel dry, hot, kyle, gritty, or even teary. Sometimes a dry climate, allergies, contact lenses, smoke, or pollution can bother dry eyes. Older people often have dry eyes because our eyes do not make as many tears as we age. Diseases such as rheumatoid arthritis, lupus, and Sj??gren's syndrome and some medicines also cause dry eyes. Your doctor may want to do tests for some of these conditions. Whatever the cause of your dry eyes, it is important to work with your doctor to find ways to help your eyes feel better. While you may have slightly blurred vision from time to time, dry eyes usually do not cause lasting problems with vision. Follow-up care is a israel part of your treatment and safety. Be sure to make and go to all appointments, and call your doctor if you are having problems. It???s also a good idea to know your test resultsand keep a list of the medicines you take. How can you care for yourself at home? ?? Take breaks often when you read, watch TV, or use a computer. Close your eyes. Do not rub your eyes. Sqle-xjz-nmtwfwc artificial tears may help you when you are doing these activities. ?? Avoid smoke and other things that irritate the eyes. ?? Use wraparound sunglasses to protect your eyes from the sun, wind, and grit. ?? Use a vaporizer or humidifier to add moisture to your bedroom. Follow the directions for cleaningthe machine. ?? Do not use fans while you sleep. ?? If you usually wear contact lenses, use rewetting drops or wear your glasses until your eyes feelbetter. ?? Take your medicine exactly as prescribed. Call your doctor if you think you are having a problem with your medicine. ?? Try using artificial tears at least 4 times a day. ?? If you need drops more than 4 times a day, use preservative-free artificial tears. They are less likely to irritate your eyes than artificial tears with preservatives. ?? Use a lubricating ointment or gel at bedtime. Lubricants are thicker and last longer, so there isless burning, dryness, and itching when you wake up in the morning. Be aware that they may blur yourvision for a short time. ?? To put in eyedrops or ointment: ?? Tilt your head back, and pull your lower eyelid down with one finger. ?? Drop or squirt the medicine inside the lower lid. ?? Close your eye for 30 to 60 seconds to let the drops or ointment move around. ?? Do not touch the ointment or dropper tip to your eyelashes or any other surface. ?? Put a warm, moist compress on your eyelids every morning for about 5 minutes. Then massage your eyelids lightly. This helps increase the natural wetness of your eyes. When should you call for help? Watch closely for changes in your health, and be sure to contact your doctor if: ?? Your eyes are still dry, irritated, or teary, and artificial tears do not help. ?? You do not get better as expected. Where can you learn more? Go to [employer] and enter D231 in the search box. Last Revised: September 19, 2010 ?? [id number] [employer]. documented in this encounter Progress Notes Alisha Kimball MD - 10/23/2012 8:43 PM CDT S: Loc Velasco is a 57 yr old female P3004 seen today for a physical exam. She is status post hysterectomy and unilateral oophorectomy for benign disease. Remote H/O abnormal pap. Last cholesterol and mammogram reviewed. Colon cancer screening up to date with colonoscopy 2005, repeat 8-10 years. Good home and car safety, which were reviewed. No concerns about domestic violence. She does get regular exercise with good exercise tolerance. Normal DEXA 2009. Calcium intake was reviewed and she is doing well with diet. Eye and dental exams reviewed. History Substance Use Topics ??? Smoking status: Never Smoker ??? Smokeless tobacco: Never Used ??? Alcohol Use: No Past Medical History Diagnosis Date ??? Normal delivery X 3 ??? Diverticulosis of colon ??? Diabetes mellitus type II 05/14/2010 ??? Hypertension Past Surgical History Procedure Laterality Date ??? Hysterectomy 1999 menorrhagia ??? Other - procedures 1998 [place] for stress incontinence Allergies Allergen Reactions ??? Sulfa Drugs Redness and Swelling Current Outpatient Prescriptions Medication Sig ??? amLODIPINE (AKA NORVASC) 5 MG tablet Take 1 Tab by mouth daily. ??? aspirin (ASPIRIN, ENTERIC-COATED) 81 MG enteric coated tablet Take 81 mg by mouth daily. ??? blood glucose (ACCU-CHEK STACEY) strip two times a day. ??? Cholecalciferol (VITAMIN D) 1000 UNIT capsule 1,000 Units daily. ??? Coenzyme Q10 (COQ-10 OR) ??? Cyanocobalamin (VITAMIN B12 OR) ??? GLUCOSAMINE SULFATE OR ??? lancets (ACCU-CHEK MULTICLIX LANCETS) Once daily and as needed ??? multivitamin (MULTIPLE VITAMIN) tablet 1 Tab daily. ??? omega-3 fatty acids (FISH OIL) 1000 MG capsule 1 Cap two times a day. No current facility-administered medications for this visit. Family History Problem Relation Age of Onset ??? Cancer, Ovary Maternal Grandmother 40's ??? Cancer, Ovary Mother 70's ??? Osteoporosis Mother ??? Osteoporosis Maternal Grandmother ??? Diabetes, Type II Mother ??? Hypertension Mother ??? Hypertension Father ??? Coronary Artery Disease Father ??? Cerebrovascular Disease Maternal Grandmother ??? Hyperlipidema Mother ??? Hyperlipidema Father ??? Thyroid Disorder Brother ?Graves disease ??? Diabetes, Type II Brother SHx: The patient is and works for the [employer]. Otherwise as above. ROS: A comprehensive review of systems was done today and was significant for a few concerns. 1. Not checking glucoses. Has lost some weight. 2. Bilateral itchy, watery, red eyes for months. No eye pain or vision changes. No discharge. No history of allergic rhinitis. Using Visine uren-euf-lekumkf and seems to help, but needs to keep using it. 3. Right calf varicose veins are itchy and painful. Otherwise a comprehensive review of systems is negative. PE BP 132/87 Pulse 73 Temp(Src) 97.9 ??F (36.6 ??C) (Tympanic) Ht 5' 4.25 (1.632 m) Wt 181 lb (82.101 kg) BMI 30.83 kg/m2 General: NAD Skin: no rash or worrisome lesions. HEENT: PERRL/EOMI. Mild bilateral conjunctival injection. No periorbital erythema or edema. No ocular discharge. TM's/canals normal. OP clear. Neck: supple. No [...] without lesions. A bimanual exam shows no tenderness to palpation or mass. Extremities: no cyanosis, clubbing, or edema. Bilateral varicose veins. Deep tendon reflexes are intact and symmetric. A/P: 1. RHM. Please see today's orders. 2. Hypertension. At goal. Continue current medication and follow up 6-12 months. 3. Type II diabetes. Labs today. 4. Dry eyes. She will stop the Visine and try plain artificial tears. If not helpful, she will see her eye care provider. She will follow up prn new or worsening symptoms or other concerns. 5. Symptomatic varicose veins. She will schedule with [facility]. Phone number supplied. Alisha Kimball MD documented in this encounter Plan of Treatment Not on filedocumented as of this encounter Procedures Procedure Name Priority Date/Time Associated Comments Diagnosis LIPID PANEL AND Routine 10/24/2012 9:45 AM Diabetes mellitus R esults for this DIRECT LDL(IF CDT type II (HRC) procedure are in NEEDED) the results section. CREATININE / GFR Routine 10/24/2012 9:45 AM Diabetes mellitus Results for this CDT type II (HRC) procedure are in the results section. HGB A1C Routine 10/24/2012 9:45 AM Diabetes mellitus Resu lts for this CDT type II (HRC) procedure are in the results section. ALT (SGPT) Routine 10/24/2012 9:45 AM Diabetes mellitus Resu lts for this CDT type II (HRC) procedure are in the results section. documented in this encounter Results (ABNORMAL) HGB A1C (10/24/2012 9:45 AM CDT) P athologist Signature Hgb A1c 10.5 (H) 4.3 - 6.1 [facility] % Comment: The usual A1C goal for people with diabe jaci, age 18-75, is <8.0%. Physicians may recommend a higher or lo wer goal for specific individuals. Specimen Anatomical Collection Method Collection Time Receive d Time (Source) Location / / Volume Laterality 10/24/2012 9:45 AM 3 9:52 CDT AM CDT Alisha Kimball MD LAB_1 Performing Organization Address [facility] e Number [facility] [employer] [phone] [phone] CREATININE / GFR (10/24/2012 9:45 AM CDT) Analysis Performed At [facility] logis Time Signature Creatinine 0.68 0.52 - [facility] 1.04 mg/dl GFR, Estimated >60.0 >60 [facility] ml/min/1.7 3m2 GFR, Est., If >60.0 >60 [facility] Black ml/min/1.7 3m2 Specimen Anatomical Collection Method Collection Time Receive d Time (Source) Location / / Volume Laterality 10/24/2012 9:45 AM 3 9:52 CDT AM CDT Alisha Kimball MD LAB_1 Performing Organization Address [facility] Phon e Number [facility] [employer] [phone] [phone] (ABNORMAL) ALT (SGPT) (10/24/2012 9:45 AM CDT) athologist Signature ALT (SGPT) 72 (H) 0 - 69 U/L [facility] Specimen Anatomical Collection Method Collection Time Receive d Time (Source) Location / / Volume Laterality 10/24/2012 9:45 AM 3 9:52 CDT AM CDT Alisha Kimball MD LAB_1 Performing Organization Address [facility] Phon e Number [employer] [phone] [address] (ABNORMAL) LIPID PANEL AND DIRECT LDL(IF NEEDED) (10/24/2012 9:45 AM CDT) [facility] Method Time Signature Cholesterol 242 (H) 0 - 199 [facility] mg/dl Triglyceride 242 (H) 0 - 149 [facility] mg/dl HDL 43 >40 mg/dl [facility] LDL, Calc. 151 (H) 0 - 129 [facility] mg/dl Non HDL Chol, 199 mg/dl [facility] Calc Hours Fasting 14 hours [facility] Specimen Anatomical Collection Method Collection Time Receive d Time (Source) Location / / Volume Laterality 10/24/2012 9:45 AM 3 9:52 CDT AM CDT Alisha Kimball MD LAB_1 Performing Organization Address [facility] Phon e Number [employer] [phone] [phone] documented in this encounter Visit Diagnoses Diagnosis Preventative health care - Primary Routine general medical examination at a health care facility Screening breast examination Other screening breast examination Diabetes mellitus type II (HRC) Type II or unspecified type diabetes dinora litus without mention of complication, not stated as uncontrolled Hypertension (HRC) Unspecified essential hypertension Dry eyes Tear film insufficiency, unspecified Varicose veins of leg with pain Varicose veins of lower extremities with other complications documented in this encounter Care Teams Ross Lift Operator Relationship Specialty Start Date End Date Alisha Kimball MD PCP - General 07/08/05 [address] [place] [address] documented as of this encounter
--- OUTSIDE RECORDS SUMMARY | 2022-04-07 07:28 | XMS_ITS | Encounter Summary ---
:1955 Author [facility] Address [address] [place] [address] Care Team Providers Name Role Phone Alisha Kimball MD Primary Care Provider Reason for Referral Specialty Diagnoses / Procedures Referred By Contact Refer red To Contact Alisha Kimball MD [address] [place] [phone] Referral ID Status Reason Start Date Expiration Date Visits Requ ested Visits Authorized Scheduling Instructions . MANUFACTURING COORDINATOR Specialty Diagnoses / Procedures Referred By Contact Refer red To Contact Alisha Kimball MD [address] [place] [id number] Referral ID Status Reason Start Date Expiration Date Visits Requ ested Visits Authorized Scheduling Instructions If scheduling assistance is needed, plea se inquire with the medical office staff upon exiting your appointment or contact the ordering clinic for recommended locations. This recommended service/s may not be co boogie by your i nsurance coverage. To find out your specific benefit coverage, plea se call the number on your insurance card. MANUFACTURING COORDINATOR Specialty Diagnoses / Procedures Referred By Contact Refer red To Contact Alisha Kimball MD [address] [place] [address] Referral ID Status Reason Start Date Expiration Date Visits Requ ested Visits Authorized Scheduling Instructions If scheduling assistance is needed, plea se inquire with the medical office staff upon exiting your appointment or contact the ordering clinic for recommended locations. This recommended service/s may not be co boogie by your i nsurance coverage. To find out your specific benefit coverage, niurka abdullahi call the number on your insurance card. MANUFACTURING COORDINATOR Reason for Visit Reason Comments LAB RESULTS glucose and A1C Encounter Details Date Type Department Care Team Description 05/14/2010 Telephone [facility] Alisha Kimball MD LAB RESULTS (glucose Practice [address] and A1C) [address] [place] [address] [place] [address] [phone] Social History Tobacco Use Types Packs/Day Years Used Date Smoking Tobacco: Never Alcohol Use Standard Drinks/Week Comments Not Asked 0 (1 standard drink = 0.6 oz pure alcoho l) Sex Assigned at Date Recorded Not on file documented as of this encounter Nursing Notes Francesca Cho CMA - 05/15/2010 3:35 PM CST Loc was notified. Francesca Cho MANUFACTURING COORDINATOR [place] [facility] - 05/15/2010 2:52 PM CST Patient is returning nurse's call MANUFACTURING COORDINATOR Francesca Cho CMA - 05/15/2010 9:00 AM CST [facility] Francesca Cho MANUFACTURING COORDINATOR Alisha Kimball - 05/14/2010 6:49 PM CST Please call Melia. Her glucose is better, but not normal. Her A1C suggests higher glucoses over the past 3 months, so she has diabetes. Should see operations mgr and log raft worker to learn glucose monitoring. See orders. Thanks! Alisha Kimball MD MANUFACTURING COORDINATOR documented in this encounter Plan of Treatment Scheduled Referrals Name Type Priority Associated Diagnoses Order S chedule DIABETES ED CLASSES Referral Routine Diabetes mellitus typ e Ordered: 05/14/2010 II ([facility]) DIABETES ED DIETITIAN Referral Routine Diabetes mellitus t ype Ordered: 05/14/2010 VISIT II ([facility]) DIABETES ED NURSE VISIT Referral Routine Diabetes mellitus type Ordered: 05/14/2010 II ([facility]) documented as of this encounter Visit Diagnoses Diagnosis Diabetes mellitus type II ([facility]) - Primar y Type II or unspecified type diabetes dinora litus without mention of complication, not stated as uncontrolled documented in this encounter Care Teams Laboratory Animal Care Veterinarian Relationship Specialty Start Date End Date Alisha Kimball MD PCP - General 07/08/05 [address] [place] [address] documented as of this encounter
--- OUTSIDE RECORDS SUMMARY | 2022-04-07 07:28 | XMS_ITS | Encounter Summary ---
:1955 Author Organization [facility] Address [address] [place] [address] Care Team Providers Name Role Phone Alisha Kimball MD Primary Care Provider Reason for Visit Reason Comments FOLLOW-UP,DIABETES Encounter Details Date Type Department Care Team Description 10/31/2012 Telephone [facility] Alisha Steinberg MD FOLLOW-UP,DIABETES [address] [facility]. [address] [place] [address] [place], [place] [id number] (Wo rk) Social History Tobacco Use Types Packs/Day Years Used Date Smoking Tobacco: Never Smokeless Tobacco: Never Alcohol Use Standard Drinks/Week Comments No 0 (1 standard drink = 0.6 oz pure alcoho l) Sex Assigned at Date Recorded Not on file documented as of this encounter Nursing Notes Francesca Cho CMA - 11/14/2012 2:22 PM CDT Patient informed and will call tomorrow to leave glucose numbers. Francesca Cho CMA - 11/14/2012 9:51 AM CDT [email or web address] Alisha Vazquez MD - 10/31/2012 8:09 PM CDT Please call the patient for glucoses. Thanks! lAisha Kimball MD documented in this encounter Plan of Treatment Not on filedocumented as of this encounter Visit Diagnoses Not on filedocumented in this encounter Care Teams Hoisting Engineer Relationship Specialty Start Date End Date Alisha Kimball MD PCP - General 07/08/05 [address] [place] [address] documented as of this encounter
--- OUTSIDE RECORDS SUMMARY | 2022-04-07 07:28 | XMS_ITS | Encounter Summary ---
:1955 Author Organization [facility] Address [address] [facility] [place] [address] Care Team Providers Name Role Phone Alisha Kimball MD Primary Care Provider Reason for Visit Reason Comments LAB RESULTS A1C, lipids Encounter Details Date Type Department Care Team Description 12/16/2012 Telephone [facility] Alisha Kimball MD LAB RESULTS (A1C, Practice [address] lipids) [address] [place] [address] [place] [address] [phone] Social History Tobacco Use Types Packs/Day Years Used Date Smoking Tobacco: Never Smokeless Tobacco: Never Alcohol Use Standard Drinks/Week Comments No 0 (1 standard drink = 0.6 oz pure alcoho l) Sex Assigned at Date Recorded Not on file documented as of this encounter Nursing Notes Deepthi Cabrera CMA - 12/19/2012 2:28 PM CDT 12/19/2012 Message below reviewed with patient, she is agreeable with the plan and expressed understanding.Deepthi Cabrera CMA Rocio Garcia - 12/19/2012 2:25 PM CDT Pt calling back, please try again Deepthi Cabrera CMA - 12/19/2012 1:52 PM CDT 12/19/2012 Left message to call back. Deepthi Cabrera CMA Rocio Garcia - 12/19/2012 8:36 AM CDT Pt calling back, please try again. Deepthi Cabrera CMA - 12/16/2012 3:56 PM CDT 12/16/2012 Left message to call back. Deepthi Cabrera CMA Alisha Kimball MD - 12/16/2012 3:42 PM CDT Please call Melia. A1C is SO much better (10.5-->8.1!). If she is doing well with the metformin, please recommend that she increase this to 1000 mg (2 tabs) daily. Repeat labs in 4 weeks. See orders. LDL is at goal and would recommend that she continue with the atorvastatin if she is doing OK with this. Thanks! Alisha Kimball MD documented in this encounter Plan of Treatment Not on filedocumented as of this encounter Results CREATININE / GFR (01/13/2013 [...] AM 3 7:38 CDT AM CDT Narrative [facility] - 01/13/2013 12:39 PM CDT Performed at [facility], [address] [place] [address], [place], [place] ??[id number] Alisha Kimball MD LAB_1 Performing Organization Address City/State/ZIP Code Phon e Number [facility] [phone] documented in this encounter Visit Diagnoses Diagnosis Diabetes mellitus type II (HRC) - Primar y Type II or unspecified type diabetes dinora litus without mention of complication, not stated as uncontrolled Diabetes mellitus type II (HRC) Type II or unspecified type diabetes dinora litus without mention of complication, not stated as uncontrolled documented in this encounter Care Teams Associate Director Qa Relationship Specialty Start Date End Date Alisha Kimball MD PCP - General 07/08/05 [address] [place] [address] documented as of this encounter
--- OUTSIDE RECORDS SUMMARY | 2022-04-07 07:28 | XMS_ITS | Encounter Summary ---
:1955 Author Organization [facility] Address [address] [place] [address] Care Team Providers Name Role Phone Alisha Kimball MD Primary Care Provider Encounter Details Date Type Department Care Team Description 07/16/2009 Imaging [facility] Screening, Mammography Unspecified [address] [place] [address] Social History Tobacco Use Types Packs/Day Years [...] Associated Diagnosis Comme nts MM MAMMOGRAM Routine 07/16/2009 8:43 AM Breast Screening, Resu lts for this SCREENING BILAT W SAP PI DEVELOPER Unspecified procedure are in CAD the results section. documented in this encounter Results MAMMOGRAM SCREENING BILATERAL [[id number]] (07/16/2009 8:43 AM SAP PI DEVELOPER) Anatomical Region Laterality Modality Breast Bilateral Mammography Specimen (Source) Anatomical Location Collection Method / Collectio n Time Received Time / Laterality Volume Narrative 07/17/2009 1:31 PM SAP PI DEVELOPER BILATERAL FULL FIELD DIGITAL SCREENING MAMMOGRAM Performed on 07/16/2009 Comparison: MAMMOGRAM, SCREENING (DIGITA L) 08/16/07 Findings: The breasts have scattered fib roglandular densities. There is no radiographic evidence of malignancy.This study was evaluated with the assistance of Computer-Aided Detection. ??Repeat routine screening mammogram in one year is recommended. ACR BI-RADS Category 1: Negative Procedure Note Luis Mcgarry - 07/17/2009For matting of this note might be different from the original. BILATERAL FULL FIELD DIGITAL SCREENING M AMMOGRAM Performed on 07/16/2009 Comparison: MAMMOGRAM, SCREENING (DIGITA L) 08/16/07 Findings: The breasts have scattered fib roglandular densities. There is no radiographic evidence of malignancy.This study was evaluated with the assistance of Computer-Aided Detection. Repeat routine screening mammogram in one year is recommended. ACR BI-RADS Category 1: Negative Alisha Kimball MD RAD MIKEY documented in this encounter Visit Diagnoses Diagnosis Breast screening, unspecified documented in this encounter Care Teams Lieutenant Governor Relationship Specialty Start Date End Date Alisha Kimball MD PCP - General 07/08/05 [address] [place] [address] documented as of this encounter
--- OUTSIDE RECORDS SUMMARY | 2022-04-07 07:28 | XMS_ITS | Encounter Summary ---
:1955 Author Organization [facility] Address [address] [place] [address] Care Team Providers Name Role Phone Alisha Kimball MD Primary Care Provider Encounter Details Date Type Department Care Team Description 03/29/2008 Imaging [facility] Foot Pain [address] [place] [address] Social History Tobacco Use Types [...] Diagnosis Comme nts XR FOOT LT Routine 03/29/2008 3:47 PM Foot Pain Results f or this AP/MO/LAT CDT procedure are i n the results section. documented in this encounter Results XR FOOT LEFT (03/29/2008 3:47 PM CDT) Anatomical Region Laterality Modality Lower Extremity, Foot, Foot & Ankle Comp uted Radiography Specimen (Source) Anatomical Collection Method Collection Time Re ceived Time Location / / Volume Laterality 03/29/2008 3:47 PM CDT Narrative 03/30/2008 5:20 PM CDT LEFT FOOT 3 VIEWS 03/29/08 INDICATION: ??Pain. IMPRESSION: No fractures identified. Plantar spurrin g of the calcaneus. Procedure Note Luis Mcgarry - 04/02/2008For matting of this note might be different from the original. LEFT FOOT 3 VIEWS 03/29/08 INDICATION: Pain. IMPRESSION: No fractures identified. Plantar spurrin g of the calcaneus. Alexis DANGELO GD documented in this encounter Visit Diagnoses Diagnosis Foot pain Pain in limb documented in this encounter Care Teams Meat Curer Relationship Specialty Start Date End Date Alisha Kimball MD PCP - General 07/08/05 [address] [place] [address] documented as of this encounter
--- OUTSIDE RECORDS SUMMARY | 2022-04-07 07:28 | XMS_ITS | Encounter Summary ---
:1955 Author Organization [facility] Address [address] [place] [address] Care Team Providers Name Role Phone Alisha Kimball MD Primary Care Provider Encounter Details Date Type Department Care Team Description 01/15/2013 Orders Only [facility] Alisha Kimball, Diabetes mellitus type Practice MD II ([facility]) (Primary Dx) [address] [facility]. [address] [place] [address] [place] [address] [phone] Social History Tobacco Use Types Packs/Day Years [...] documented in this encounter Care Teams Admissions Assistant Relationship Specialty Start Date End Date Alisha Kimball MD PCP - General 07/08/05 [address] [place], [place] [id number] documented as of this encounter
--- OUTSIDE RECORDS SUMMARY | 2022-04-07 07:28 | XMS_ITS | Encounter Summary ---
:1955 Author Organization [facility] Address [address] [place] [address] Care Team Providers Name Role Phone Alisha Kimball MD Primary Care Provider Encounter Details Date Type Department Care Team Description 12/16/2012 Orders Only [facility] Diabetes mellitus type II (H RC); [address] Hypercholesterolemia; [place] [address] Elevated liver enzymes [phone] Social History Tobacco Use Types Packs/Day Years [...] Diagnosis Comme nts LIPID PANEL AND Routine 12/16/2012 7:33 Hypercholesterolemia R esults for this DIRECT LDL(IF AM CDT procedure are in NEEDED) the results section. LIVER Routine 12/16/2012 7:33 Elevated liver e nzymes Results for this PANEL(HEPATIC AM CDT Hypercholesterolemia proced ure are in FUNCTION PANEL) the results section. HGB A1C Routine 12/16/2012 7:33 Diabetes mellitus type II Results for this AM CDT (HRC) procedure are i n the results section. documented in this encounter Results (ABNORMAL) HGB A1C (12/16/2012 [...] 12/16/2012 2:00 PM C DT Performed at [facility], [address] [place] [address] ??[id number] Alisha Kimball MD LAB_1 Performing Organization Address [facility] Phon e Number [facility] [phone] LIVER PANEL(HEPATIC FUNCTION PANEL) (12/16/2012 7:33 AM CDT) [facility] CX Method Time Signature Alkaline 90 38 - [...] - 12/16/2012 12:42 PM CDT Performed at [facility], [address] [place] [id number] Alisha Kimball MD LAB_1 Performing Organization Address City/[facility] Phon e Number [facility] [phone] LIPID PANEL AND DIRECT LDL(IF NEEDED) (12/16/2012 7:33 AM CDT) [facility] CX Method Time Signature Hours Fasting 12 hours [...] - 12/16/2012 12:42 PM CDT Performed at [facility], [address] [place] [address] ??[phone] Alisha Kimball MD LAB_1 Performing Organization Address City/State/[facility] Code Phon e Number [facility] [phone] documented in this encounter Visit Diagnoses Diagnosis Diabetes mellitus type II (HRC) Type II or unspecified type diabetes dinora litus without mention of complication, not stated as uncontrolled Hypercholesterolemia Pure hypercholesterolemia Elevated liver enzymes Nonspecific elevation of levels of trans aminase or lactic acid dehydrogenase (LDH) documented in this encounter Care Teams Felt Tipping Machine Tender Relationship Specialty Start Date End Date Alisha Kimball MD PCP - General 07/08/05 [address] [place] [id number] documented as of this encounter
--- OUTSIDE RECORDS SUMMARY | 2022-04-07 07:29 | XMS_ITS | Encounter Summary ---
:1955 Author Organization [facility] Address [address] [place] [address] Care Team Providers Name Role Phone Alisha Kimball MD Primary Care Provider Encounter Details Date Type Department Care Team Description 11/25/2005 Telephone [facility] Mari Pickens MD [address] [facility] [address] [facility] [place] [address] [address] [place], [place] [address] (Wo rk) Social History Tobacco Use Types Packs/Day Years Used Date Smoking Tobacco: Never Alcohol Use Standard Drinks/Week Comments Not Asked 0 (1 standard drink = 0.6 oz pure alcoho l) Sex Assigned at Date Recorded Not on file documented as of this encounter Nursing Notes Dot Fairbanks - 11/25/2005 8:25 AM CDT Encounter initiated. documented in this encounter Plan of Treatment Not on filedocumented as of this encounter Visit Diagnoses Not on filedocumented in this encounter Care Teams Building Services Technician Relationship Specialty Start Date End Date Alisha Kimball MD PCP - General 07/08/[address] [place] [address] documented as of this encounter
--- OUTSIDE RECORDS SUMMARY | 2022-04-07 07:29 | XMS_ITS | Encounter Summary ---
:1955 Author Organization [facility] Address [address] [place] [address] Care Team Providers Name Role Phone Alisha Kimball MD Primary Care Provider Encounter Details Date Type Department Care Team Description 01/01/2006 Notes/Orders [facility] Linda Roberts, Gastroenterology WIND DEVELOPMENT DIRECTOR[address] [id number] Social History Tobacco Use Types Packs/Day Years Used Date Smoking Tobacco: Never Alcohol Use Standard Drinks/Week Comments Not Asked 0 (1 standard drink = 0.6 oz pure alcoho l) Sex Assigned at Date Recorded Not on file documented as of this encounter Plan of Treatment Not on filedocumented as of this encounter Visit Diagnoses Not on filedocumented in this encounter Care Teams Classroom Aide Relationship Specialty Start Date End Date Alisha Kimball MD PCP - General 07/08/[address] [place], [place] [phone] documented as of this encounter
--- OUTSIDE RECORDS SUMMARY | 2022-04-07 07:29 | XMS_ITS | Encounter Summary ---
:1955 Author Organization [facility] Address [address] [place] [address] Care Team Providers Name Role Phone Miky Sultana MD Primary Care Provider Reason for Referral Specialty Diagnoses / Procedures Referred By Contact Refer red To Contact Miky Sultana MD [address] [place] [address] Referral ID Status Reason Start Date Expiration Date Visits Requ ested Visits Authorized HEAR OPERATOR Reason for Visit Reason Comments COUGH CONSTIPATION with bloating Encounter Details Date Type Department Care Team Description 06/17/2005 Office Visit [facility] Miky Sultana MD CONSTIPATION NOS Practice [address] (Primary Dx) [address] [place] [address] [place] [address] [phone] Social History Tobacco Use Types Packs/Day Years Used Date Smoking Tobacco: Never Alcohol Use Standard Drinks/Week Comments Not Asked 0 (1 standard drink = 0.6 oz pure alcoho l) Sex Assigned at Date Recorded Not on file documented as of this encounter Last Filed Vital Signs Vital Sign Reading Time Taken Comments Blood Pressure 122/64 06/17/2005 9:23 AM RIPSHEAR OPERATOR Pulse 78 06/17/2005 9:23 AM RIPSHEAR OPERATOR Temperature 36.9 ??C (98.4 ??F) 06/17/2005 9:23 AM RIPSHEAR OPERATOR Respiratory Rate 26 06/17/2005 9:23 AM RIPSHEAR OPERATOR Oxygen Saturation - - Inhaled Oxygen Concentration - - Weight 84.5 kg (186 lb 3.2 oz) 06/17/2005 9:23 AM RIPSHEAR OPERATOR Height - - Body Mass Index - - documented in this encounter Progress Notes 06/17/2005 9:20 AM RIPSHEAR OPERATOR This office note has been dictated. MD Rd Caballero Mark - 06/17/2005 12:00 AM CSTProblem: Constipation. Subjective: Patient states that she has had chronic problems with constipation and now has had some increased bloating as well. It seemed to get somewhat worse since she had a hysterectomy. She had also had a cough when she made the appointment, but the cough is pretty much resolving. She has had no fever or chills. She has had no nausea or vomiting. She has noted no black or tar-looking stools and has noted no blood in her stool. Objective: The patient is alert, active in no distress. Vital signs are as noted. Lungs are clear. Heart: Regular rhythm, no murmurs or S3 heard. Abdomen: No tenderness or organomegaly is present. Assessment: Change in stool habits/constipation. Plan: I think the first thing to do is to get a colonoscopy to make sure there aren't any structural problems with the colon. In the meantime, she will use some Milk of Magnesia for the constipation and try to increase fluid and fiber in her diet including a trial of Metamucil. P cc: HEAR OPERATOR documented in this encounter Plan of Treatment Scheduled Referrals Name Type Priority Associated Diagnoses Order S chedule COLONOSCOPY-DIAGNOSTIC Referral Routine Constipation Nos O rdered: 06/17/2005 documented as of this encounter Visit Diagnoses Diagnosis Unspecified constipation - Primary documented in this encounter Care Teams Varnish Dipper Relationship Specialty Start Date End Date Miky Sultana MD PCP - General 09/21/01 07/07/05 [address] [place] [address] documented as of this encounter
--- OUTSIDE RECORDS SUMMARY | 2022-04-07 07:29 | XMS_ITS | Encounter Summary ---
:1955 Author Organization [facility] Address [address] [place] [address] Care Team Providers Name Role Phone Carroll Avalos MD Primary Care Provider Reason for Visit Reason Comments LAB RESULTS positive parapertussis DNA Encounter Details Date Type Department Care Team Description 07/09/2005 Telephone [facility] Carroll Avalos, LAB RESU LTS (positive Practice parapertussis DNA) [address] [facility]. [address] [place] [address] [place], [place] [id number] Social History Tobacco Use Types Packs/Day Years Used Date Smoking Tobacco: Never Alcohol Use Standard Drinks/Week Comments Not Asked 0 (1 standard drink = 0.6 oz pure alcoho l) Sex Assigned at Date Recorded Not on file documented as of this encounter Nursing Notes 07/09/2005 11:59 PM SUPERVISOR PHOSPHATIC FERTILIZER >> CARROLL AVALOS Mon Jul 20, 2005 1:54 PM No further treatment and, again, contacts do not need treatment unless they develop symptoms. Thanks ! Carroll Avalos MD >> JORGE PONCE Mon Jul 20, 2005 1:22 PM Pt. called back today. Informed that her parapertussis came back positive. Pt. did take a Z-pack s tarting on 07/08/05 and took the full course. Is feeling better, no further sx. Does she need furthe r treatment? Pt. uses [facility] pharmacy. Has allergy to Sulfa. >> KRYSTYNA GARCÍA Fri Jul 17, 2005 10:57 AM 10:50 AM MLTRC again-see encounter note. Pt Tx on visit. Krystyna García, RN >> CARROLL AVALOS Gloria Jul 09, 2005 1:21 PM Called Jackie at [facility]. She recommended treating the patient but no prophylaxi s for contacts. Unable to reach the patient and message left at home to call back. Office number lety conroy is a fax number. Carroll Avalos MD documented in this encounter Plan of Treatment Not on filedocumented as of this encounter Visit Diagnoses Not on filedocumented in this encounter Care Teams Internal Security Manager Relationship Specialty Start Date End Date Carroll Avalos MD PCP - General 07/08/05 [address] [place] [address] documented as of this encounter
--- OUTSIDE RECORDS SUMMARY | 2022-04-07 07:29 | XMS_ITS | Encounter Summary ---
:1955 Author Organization [facility] Address [address] [place] [address] Care Team Providers Name Role Phone Alisha Kimball MD Primary Care Provider Reason for Visit Reason Onset Date Comments Dental Concerns 09/11/2006 Encounter Details Date Type Department Care Team Description 09/11/2006 Telephone [facility] Faye Patel RN Dental Concerns [address] [place], [place] [address] Social History Tobacco Use Types Packs/Day Years Used Date Smoking Tobacco: Never Alcohol Use Standard Drinks/Week Comments Not Asked 0 (1 standard drink = 0.6 oz pure alcoho l) Sex Assigned at Date Recorded Not on file documented as of this encounter Nursing Notes Faye Patel - 09/11/2006 8:14 AM CST Awoke this morning with swollen face, right side-Upper right tooth has been bothering all week and not face is swollen but tooth does not hurt. Temp=?doesn't feel warm(instructed to check temp and c/b if T>100(o). Plan:will page dentist at 8am 8:12 AM Vero from [facility] calling to take information and will call back patient. Faye Patel RN IE BREAKER documented in this encounter Plan of Treatment Not on filedocumented as of this encounter Visit Diagnoses Not on filedocumented in this encounter Care Teams Auto Parts Handler Relationship Specialty Start Date End Date Alisha Kimball MD PCP - General 07/08/[address] [place] [address] documented as of this encounter
--- OUTSIDE RECORDS SUMMARY | 2022-04-07 07:29 | XMS_ITS | Encounter Summary ---
:1955 Author Organization [facility] Address [address] [place] [address] Care Team Providers Name Role Phone Alisha Kimball MD Primary Care Provider Encounter Details Date Type Department Care Team Description 12/19/2007 Office Visit [facility] Kiah August H, OTR/L Mallet Finger (Primary [address] [facility] [address] Dx) [address] 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 ICD-9-code: 736.1 Date of Onset: 06/02/07 Date of Surgery: not applicable Referring Physician: Jigar Mcgarry V Order Date(s): 08/09/07 Date of initial evaluation/progress note(s): 08/17/2007 , 11/01/07, 12/13/07 Injury: Left Hand Dominance: Right CURRENT HOME PROGRAM : A/PROM, blocking, digisleeves, taped flexion, tendon glides VISIT NUMBER: 11 out of 11 PAIN: Intensity Level: Current Sore at PIP after stretch 4/10 SUBJECTIVE Patient reports her fingers feel stiff. OBJECTIVE Left middle PIP 0-70 DIP 9-39 ring PIP0-84 DIP 0-44 post treatment TREATMENT Physical Agent Modalities: Fluidotherapy 10 minutes for increased tissue extensibility Therapeutic Exercises: 10 minutes AROM/PROM of digits, Blocking and Tendon Glides Instructed pt. To completed taped flexion of middle finger. Physical Agent Modalities: Ultrasound: Pulsed, 3 MHz, 1.0 intensity, 2 minutes of set up time, 8 minutes of treatment, location: Dorsal/volar middle and ring fingers, for purpose of decrease inflammation/pain and Treatment number: 1 ASSESSMENT Pain: decreased Edema: decreased Range of Motion increased Strength : needs improvement, will formally test next visit. Functional limitations TREATMENT PLAN Ultrasound, Active ROM, Passive ROM, Strengthening and Check hopper operator/3pt. Pinch strength. Will continue to see pt. 1x/week for next 6 weeks. MINUTES SEEN: 30 Treatment Charges: Physical Agent Modalities: Ultrasound: Quantity: 1 Treatment: Therapeutic Exercises: Quantity: 1 Kiah Beal OTR/L documented in this encounter Plan of Treatment Not on filedocumented as of this encounter Visit Diagnoses Diagnosis Mallet finger - Primary documented in this encounter Care Teams Engraver Flatware Relationship Specialty Start Date End Date Alisha Kimball MD PCP - General 07/08/05 [address] [place] [address] documented as of this encounter
--- OUTSIDE RECORDS SUMMARY | 2022-04-07 07:29 | XMS_ITS | Encounter Summary ---
:1955 Author Organization [facility] Address [address] [place] [address] Care Team Providers Name Role Phone Alisha Kimball MD Primary Care Provider Encounter Details Date Type Department Care Team Description 01/26/2006 Correspondence [facility] Priyank Ferraro Colonoscopy Gastroenterology MD Malik Informed Consent [address] [address] [address] JUAQUIN [place] [address] [address] [place], [place] [phone] Social History Tobacco Use Types Packs/Day Years Used Date Smoking Tobacco: Never Alcohol Use Standard Drinks/Week Comments Not Asked 0 (1 standard drink = 0.6 oz pure alcoho l) Sex Assigned at Date Recorded Not on file documented as of this encounter Progress Notes Malik Ferraro - 01/26/2006 12:00 AM CDT documented in this encounter Plan of Treatment Not on filedocumented as of this encounter Visit Diagnoses Not on filedocumented in this encounter Care Teams Senior Ui Developer Relationship Specialty Start Date End Date Alisha Kimball MD PCP - General 07/08/[address] [place], [place] [phone] documented as of this encounter
--- OUTSIDE RECORDS SUMMARY | 2022-04-07 07:29 | XMS_ITS | Encounter Summary ---
:1955 Author Organization [facility] Address [address], [place] [address] Care Team Providers Name Role Phone Alisha Kimball MD Primary Care Provider Reason for Visit Reason Onset Date Comments COUGH 07/08/2005 cough Encounter Details Date Type Department Care Team Description 07/08/2005 Telephone [place] [facility] Miky Salinas MD COUGH (cough) [address] [place] [address] [place] [address] [phone] (Wo rk) Social History Tobacco Use Types Packs/Day Years Used Date Smoking Tobacco: Never Alcohol Use Standard Drinks/Week Comments Not Asked 0 (1 standard drink = 0.6 oz pure alcoho l) Sex Assigned at Date Recorded Not on file documented as of this encounter Nursing Notes 07/08/2005 11:59 PM PARTS SALESPERSON >> JORGE PONCE Wed Jul 08, 2005 9:48 AM Pt. has had a bad cough for a couple of days. Had a similar cough a while back and thought it was due to her BP meds so stopped those and the cough stopped. Pt's cough has been mostly dry, sometimes slightly productive. Is to the point of gagging at times. Not sleeping well. Has no fever. No c hest tightness, SOB. With the cough, has a runny nose and ear feels plugged. Scheduled pt. for 3:[address] Kimball. >> CATALINA APARICIO Wed Jul 08, 2005 8:29 AM Pt is calling regarding a constant cough, would like advise documented in this encounter Plan of Treatment Not on filedocumented as of this encounter Visit Diagnoses Not on filedocumented in this encounter Care Teams Utilization Review Specialist Relationship Specialty Start Date End Date Alisha Kimball MD PCP - General 07/08/05 [address] [place] [address] documented as of this encounter
--- OUTSIDE RECORDS SUMMARY | 2022-04-07 07:29 | XMS_ITS | Encounter Summary ---
:1955 [facility] Address [address], [place] [address] Care Team Providers Name Role Phone Alisha Kimball MD Primary Care Provider Reason for Referral Specialty Diagnoses / Procedures Referred By Contact Refer red To Contact Mauro Keyes MD [address] [place] [address] Referral ID Status Reason Start Date Expiration Date Visits Requ ested Visits Authorized D CARE ADVOCATE Reason for Visit Reason Comments Follow-up, NOS finger Encounter Details Date Type Department Care Team Description 08/02/2007 Office Visit [place] [facility] Mauro Keyes (Primary Medicine Carmen Amos MD Dx) [address] [facility]. [address] [place] [address] [place] [address] Social History Tobacco Use Types Packs/Day Years Used Date Smoking Tobacco: Never Alcohol Use Standard Drinks/Week Comments Not Asked 0 (1 standard drink = 0.6 oz pure alcoho l) Sex Assigned at Date Recorded Not on file documented as of this encounter Last Filed Vital Signs Vital Sign Reading Time Taken Comments Blood Pressure 116/62 08/02/2007 2:26 PM FIELD CARE ADVOCATE Pulse 76 08/02/2007 2:26 PM FIELD CARE ADVOCATE Temperature - - Respiratory Rate 16 08/02/2007 2:26 PM FIELD CARE ADVOCATE Oxygen Saturation - - Inhaled Oxygen Concentration - - Weight 73.9 kg (163 lb) 08/02/2007 2:26 PM FIELD CARE ADVOCATE Height 165.1 cm (5' 5) 08/02/2007 2:26 PM FIELD CARE ADVOCATE Body Mass Index 27.12 08/02/2007 2:26 PM FIELD CARE ADVOCATE documented in this encounter Progress Notes Mauro Keyes V - 08/02/2007 3:28 PM CST This office note has been dictated. D CARE ADVOCATE Mauro Keyes V - 08/02/2007 12:00 AM FIELD CARE ADVOCATE Ms. Velasco is a 52-year-old lady who comes in today because of swelling and stiffness of the left third digit. The patient sustained a crush injury when this left third digit got caught in a car door. She was seen here at the clinic and at that time an x-ray done was negative. The finger was splinted, and she actually wore the splint for 7 to 8 weeks. She had been compliant with it. Upon removal of the splint, the finger was still swollen, and there was a loss of range of motion. This has not recovered after not wearing the splint for about a week or two; hence, her visit here for further evaluation. There is no actual pain, just stiffness with attempt in moving it. PHYSICAL EXAM: Awake, alert, not in distress. Vitals as above. Left third digit is swollen in sausage shape. There is no erythema, no redness, no tenderness on palpation, but patient cannot flex at the interphalangeal joint areas. Chart was reviewed and x-ray done then was indeed read as normal. ASSESSMENT AND PLAN: Swelling with loss of range of motion of the left third digit after a crush injury with splinting two months ago. We will refer her to the hand surgeon for further evaluation. P cc: D CARE ADVOCATE documented in this encounter Plan of Treatment Not on filedocumented as of this encounter Visit Diagnoses Diagnosis Finger pain - Primary Pain in limb documented in this encounter Care Teams Occupational Health Professional Relationship Specialty Start Date End Date Alisha Kimball MD PCP - General 07/08/05 [address] [place] [address] documented as of this encounter
--- OUTSIDE RECORDS SUMMARY | 2022-04-07 07:29 | XMS_ITS | Encounter Summary ---
:1955 [address] [facility] Address [address] [address] Care Team Providers Name Role Phone Alisha Kimball MD Primary Care Provider Encounter Details Date Type Department Care Team Description 08/22/2007 Office Visit Specialty [facility] Janiya Knowles Mal let Finger (Primary [address] [facility] A, OTR/L Dx) [address] [place] [address] [place], [place] [phone] Social History Tobacco Use Types Packs/Day Years Used Date Smoking Tobacco: Never Alcohol Use Standard Drinks/Week Comments Not Asked 0 (1 standard drink = 0.6 oz pure alcoho l) Sex Assigned at Date Recorded Not on file documented as of this encounter Progress Notes Janiya Knowles - 08/22/2007 10:02 AM CST HAND OCCUPATIONAL THERAPY DAILY NOTE 08/22/2007 Patient Name: Loc Velasco [id number] Payor: SELF [id number] Plan: SELF INSURED Product Type: *No Product type* Diagnosis: Mallet finger of left 3rd digit with stiffness throughout other joints and fingers. ICD-9-code: 736.1 Date of Onset: 06/02/07 Date of Surgery: not applicable Referring Physician: Jigar Mcgarry V Order Date(s): 08/09/07 Date of initial evaluation/progress note(s): 08/17/2007 Injury: Left Hand Dominance: Right VISIT NUMBER: 2 out of 2 SUBJECTIVE Patient reports pain only when bumping it. Completing her exercises and splint tape changing. Prefers the dorsal splint more than the volar splint. OBJECTIVE index: PIP 90 DIP 30 Ring: PIP 90 DIP 30 Small: PIP 70 DIP 30 TREATMENT Therapeutic procedures: 15 minutes and AROM of fingers with mallet splint on and protected. and Splint fabrication: 15 minutes. Fabrication of mallet splint with increased extension, able to achieve slight hyperextension. ASSESSMENT Pain: decreased Range of Motion increased Functional limitations TREATMENT PLAN Active ROM, Passive ROM and Splint check MINUTES SEEN: 30 Treatment Charges: Treatment: Orthotic / Prosthetic Check out / Adjustment: Quantity: 1 Therapeutic Procedure: Quantity: 1 Janiya Knowles,OTR/L,CHT LE MOLDER documented in this encounter Plan of Treatment Not on filedocumented as of this encounter Visit Diagnoses Diagnosis Mallet finger - Primary documented in this encounter Care Teams Costume Director Relationship Specialty Start Date End Date Alisha Kimball MD PCP - General 07/08/05 [address] [place] [address] documented as of this encounter
--- OUTSIDE RECORDS SUMMARY | 2022-04-07 07:29 | XMS_ITS | Encounter Summary ---
:1955 Author Organization [facility] Address [address], [place] [address] Care Team Providers Name Role Phone Alisha Kimball MD Primary Care Provider Reason for Referral Specialty Diagnoses / Procedures Referred By Contact Refer red To Contact Alexis Ponce PA -C [address], [place] [address] Referral ID Status Reason Start Date Expiration Date Visits Requ ested Visits Authorized Scheduling Instructions [facility] an [facility] was advised and you have not been contacted to schedule that appo intment within 3 business days, please call [phone] for assistance. Reason for Visit Reason Comments ANKLE PAIN Lt ankle into foot pain x 2 weeks swollen by end of day may have stepped off stairs wrong. Unable to sleep due to pain Encounter Details Date Type Department Care Team Description 03/29/2008 Office Visit [facility] Alexis Ponce Foot Pa in (Primary Dx) Practice EMILY [address], [place] [address] [place], [place] [phone] Social History Tobacco Use Types Packs/Day Years Used Date Smoking Tobacco: Never Alcohol Use Standard Drinks/Week Comments Not Asked 0 (1 standard drink = 0.6 oz pure alcoho l) Sex Assigned at Date Recorded Not on file documented as of this encounter Last Filed Vital Signs Vital Sign Reading Time Taken Comments Blood Pressure 118/88 03/29/2008 3:18 PM CDT Pulse 68 03/29/2008 3:18 PM CDT Temperature 36.9 ??C (98.5 ??F) 03/29/2008 3:18 PM CDT Respiratory Rate - - Oxygen Saturation - - Inhaled Oxygen Concentration - - Weight 79.6 kg (175 lb 6.4 oz) 03/29/2008 3:18 PM CDT Height - - Body Mass Index 30.11 08/09/2007 4:16 PM CATERPILLAR TRACTOR OPERATOR documented in this encounter Patient Instructions Patient InstructionsAlexis Ponce - 03/29/2008 4:20 PM CDT Purchase arch supports for both shoes. Start taking Ibuprofen 200 mg tablets - 3 - 4 tablets (600 - 800 mg) every 6 - 8 hours with food Maximum Ibuprofen is 3200 mg or 16 tablets in 24 hours. Ibuprofen = Advil and Motrin Ice foot a couple times daily. Follow up with the cow puncher. documented in this encounter Progress Notes Alexis Ponce - 03/30/2008 9:54 AM CDT SUBJECTIVE: Loc Velasco is a 53 yr old female who presents today for evaluation of left foot/ankle pain and swelling that started approximately 1 month ago. States that she may have stepped wrong but cannot recall any specific injury. Describes the pain as shooting from the top of her foot and down towards her ankle. Has swelling that worsens as the day goes on. Denies any redness or bruising. Has not tried anything for the pain or swelling. No changes in shoewear. Reports a H/O plantar fasciitis. Has flat feet. States that 3 years ago she had a puncture wound that was deep in the same area where shehas been experiencing the pain. Medications: None Allergies Allergen Reactions ??? Sulfa Drugs Redness and Swelling OBJECTIVE: BP 118/88 Pulse 68 Temp (Src) 98.5 ??F (36.9 ??C) (Oral) Wt 175 lb 6.4 oz (79.561 kg) LMP Hysterectomy M/S: Gait is a little slow. She has a very low arch and feet are flat. She can get on and off the exam table without assistance. Examinationof the left foot reveals minimal swelling around the medial malleolus. At the top of the ankle is a small scar where previous puncture wound occurred. She has tenderness in this area. Has FROM but has pain at the extremes. Muscle strength and sensation are intact. Dorsalis pedis pulse is present. Ankle X-rays are unremarkable for any fracture. ASSESSMENT/PLAN: 1. Left foot/ankle pain Recommended that she purchase arch supports for both feet. Ice application a couple times per day. Ibuprofen 600-800mg 3-4 times daily with food. Podiatry referral given for custom orthodics. She was agreeable with the plan and expressed understanding. Alexis Ponce PA-C documented in this encounter Plan of Treatment Scheduled Referrals Name Type Priority Associated Diagnoses Order S chedule FOOT & ANKLE/PODIATRY Referral Routine Foot Pain Ordere d: 03/29/2008 CONSULT-ADULT/PEDS documented as of this encounter Results XR FOOT LEFT (03/29/2008 [...] Plantar spurrin g of the calcaneus. Alexis Ponce PA-C RAD GD documented in this encounter Visit Diagnoses Diagnosis Foot pain - Primary Pain in limb Foot pain Pain in limb documented in this encounter Care Teams Research Professor Relationship Specialty Start Date End Date Alisha Kimball MD PCP - General 07/08/05 [address] [place] [address] documented as of this encounter
--- OUTSIDE RECORDS SUMMARY | 2022-04-07 07:29 | XMS_ITS | Encounter Summary ---
:1955 Author [facility] Address [address] [place] [address] Care Team Providers Name Role Phone Miky Sultana MD Primary Care Provider Reason for Visit Reason Comments LAB RESULTS Encounter Details Date Type Department Care Team Description 02/26/2005 Telephone [facility] Carroll Steinberg MD LAB RESULTS [address] [facility]. [address] [place] [address] [place], [place] [phone] (Wo rk) Social History Tobacco Use Types Packs/Day Years Used Date Smoking Tobacco: Never Alcohol Use Standard Drinks/Week Comments Not Asked 0 (1 standard drink = 0.6 oz pure alcoho l) Sex Assigned at Date Recorded Not on file documented as of this encounter Nursing Notes 02/26/2005 11:59 PM CDT >> VERONICA DICKENS shahnaz Mar 03, 2005 9:10 AM Patient aware. Will have BP checked03/16/05. Veronica Dickens RN >> VERONICA Johnson Mar 03, 2005 9:01 AM Left message to call back. Veronica Dickens RN >> CARROLL AVALOS [facility] Feb 26, 2005 9:04 AM Called the patient. Left a message. Labs from yesterday normal. I recommended starting lisinopril 10 mg daily. Potential side effects reviewed. See orders. Blood pressure recheck in 2 weeks. Call if pr oblems with medication. Carroll Avalos MD documented in this encounter Plan of Treatment Not on filedocumented as of this encounter Visit Diagnoses Diagnosis Unspecified essential hypertension (HRC) - Primary Unspecified essential hypertension documented in this encounter Care Teams Hoop Coiler Relationship Specialty Start Date End Date Miky Sultana MD PCP - General 09/21/01 07/07/05 [place] [id number] documented as of this encounter
--- OUTSIDE RECORDS SUMMARY | 2022-04-07 07:29 | XMS_ITS | Encounter Summary ---
:1955 Author Organization [facility] Address [address] [place] [address] Care Team Providers Name Role Phone Alisha Kimball MD Primary Care Provider Encounter Details Date Type Department Care Team Description 01/08/2006 Orders Only [facility] Mammogram I, Sp S CREENING MAMM-MAILG Mammography NEOPL NEC (Primary [address] Dx) [place], [place] [id number] Social History Tobacco Use Types Packs/Day Years Used Date Smoking Tobacco: Never Alcohol Use Standard Drinks/Week Comments Not Asked 0 (1 standard drink = 0.6 oz pure alcoho l) Sex Assigned at Date Recorded Not on file documented as of this encounter Procedure Notes Luis Mcgarry - 01/08/2006 12:00 AM CDTAssociated Order(s): MAMMOGRAM, SCREENING EXAMINATION: BILATERAL MAMMOGRAM 01/08/06: ACR BIRADS CATEGORY 1 - NEGATIVE MAMMOGRAM. Exam was reviewed with computer aided detection (CAD) system for a second read. No radiographic evidence for malignancy. No change compared to 05/16/98. Luis Mcgarry MD A cc: Radiology SP Alisha Kimball MD documented in this encounter Plan of Treatment Not on filedocumented as of this encounter Procedures Procedure Name Priority Date/Time Associated Diagnosis Comme nts MAMMOGRAM, SCREENING Routine 01/08/2006 Screening Mamm-Mailg Results for this Neopl Nec procedure are i n the results section . documented in this encounter Results BILATERAL SCREEN (01/08/2006) Anatomical Region Laterality Modality Breast Other Transcriptions Luis Mcgarry - 01/08/2006 12 :00 AM CDTEXAMINATION: BILATERAL MAMMOGRAM 01/08/06: ACR BIRADS CATEGORY 1 - NEGATIVE MAMMOGR AM. Exam was reviewed with computer aided de tection (CAD) system for a second read. No radiographic evidence for darius goldsmith. No change compared to 05/16/98. Luis Mcgarry MD A cc: Radiology SP Alisha Kimball MD Alisha Kimball MD RAD_BI documented in this encounter Visit Diagnoses Diagnosis Other screening mammogram - Primary documented in this encounter Care Teams Wetland Scientist Relationship Specialty Start Date End Date Alisha Kimball MD PCP - General 07/08/05 [address] [place] [address] documented as of this encounter
--- OUTSIDE RECORDS SUMMARY | 2022-04-07 07:29 | XMS_ITS | Encounter Summary ---
:1955 Author Organization [facility] Address [address] [place] [address] Care Team Providers Name Role Phone Alisha Kimball MD Primary Care Provider Encounter Details Date Type Department Care Team Description 01/08/2006 Correspondence None Hp Danisha, Provider consent to release Social History Tobacco Use Types Packs/Day Years Used Date Smoking Tobacco: Never Alcohol Use Standard Drinks/Week Comments Not Asked 0 (1 standard drink = 0.6 oz pure alcoho l) Sex Assigned at Date Recorded Not on file documented as of this encounter Progress Notes Hp Danisha, Provider - 01/08/2006 12:00 AM CDT documented in this encounter Plan of Treatment Not on filedocumented as of this encounter Visit Diagnoses Not on filedocumented in this encounter Care Teams Neuropsychology Director Relationship Specialty Start Date End Date Alisha Kimball MD PCP - General 07/08/[address] [place], [place] [id number] documented as of this encounter
--- OUTSIDE RECORDS SUMMARY | 2022-04-07 07:29 | XMS_ITS | Encounter Summary ---
:1955 Author Organization [facility] Address [address] [place] [address] Care Team Providers Name Role Phone Alisha Kimball MD Primary Care Provider Encounter Details Date Type Department Care Team Description 01/26/2006 Office Visit [facility] BRE Ferraro SCREEN FOR Gastroenterology MD Malik MALIG NEOPLASMS, [address] [place] [address] [facility] [address] [place], [place] [phone] Social History Tobacco Use Types Packs/Day Years Used Date Smoking Tobacco: Never Alcohol Use Standard Drinks/Week Comments Not Asked 0 (1 standard drink = 0.6 oz pure alcoho l) Sex Assigned at Date Recorded Not on file documented as of this encounter Progress Notes Malik Ferraro - 01/26/2006 12:00 AM CDT Malik Ferraro - 01/26/2006 12:00 AM CDT Malik Ferraro - 01/26/2006 12:00 AM CDT Malik Ferraro - 01/26/2006 12:00 AM CDT Malik Ferraro - 01/26/2006 12:00 AM CDT documented in this encounter Plan of Treatment Not on filedocumented as of this encounter Visit Diagnoses Diagnosis Special screening for malignant neoplasm s, colon documented in this encounter Care Teams Ledge Man Relationship Specialty Start Date End Date Alisha Kimball MD PCP - General 07/08/05 [address] [place] [address] documented as of this encounter
--- OUTSIDE RECORDS SUMMARY | 2022-04-07 07:29 | XMS_ITS | Encounter Summary ---
:1955 Author Organization [facility] Address [address] [place] [address] Care Team Providers Name Role Phone Alisha Kimball MD Primary Care Provider Reason for Referral Specialty Diagnoses / Procedures Referred By Contact Refer red To Contact Wendi Berry PA- C [address] [place] [address] Referral ID Status Reason Start Date Expiration Date Visits Requ ested Visits Authorized Reason for Visit Reason Comments Follow Up mallet injury Encounter Details Date Type Department Care Team Description 11/01/2007 Office Visit Specialty Center Jigar Mcgarry Mall et Finger (Primary [address] [facility], Dx) Surgery [address] [place] [phone] Social History Tobacco Use Types Packs/Day Years Used Date Smoking Tobacco: Never Alcohol Use Standard Drinks/Week Comments Not Asked 0 (1 standard drink = 0.6 oz pure alcoho l) Sex Assigned at Date Recorded Not on file documented as of this encounter Progress Notes Wendi Berry - 11/01/2007 12:00 AM CDT SUBJECTIVE: She is a woman who was seen for evaluation back in August for a mallet finger to the left long finger. X-rays had been previously reviewed by Dr. Mcgarry, there was no fracture. She has been wearing the splint for greater than eight weeks now. She has gotten the splints from the hand therapist. OBJECTIVE: Today on examination the splint is removed very carefully holding the finger in extension. She has almost no lag, maybe just a few degrees. But overall it looks really good. The skin looks like it is in good condition. ASSESSMENT and PLAN: We put the splint back on and we will send her to hand therapy for weaning her out of the splint. I told her to have a little bit of a protocol that she can follow. And we will see her back with any issues. P cc: documented in this encounter Plan of Treatment Not on filedocumented as of this encounter Visit Diagnoses Diagnosis Mallet finger - Primary documented in this encounter Care Teams Rough Rice Tender Relationship Specialty Start Date End Date Alisha Kimball MD PCP - General 07/08/05 [address] [place] [address] documented as of this encounter
--- OUTSIDE RECORDS SUMMARY | 2022-04-07 07:29 | XMS_ITS | Encounter Summary ---
:1955 Author Organization [facility] Address [address] [place] [address] Care Team Providers Name Role Phone Alisha Kimball MD Primary Care Provider Encounter Details Date Type Department Care Team Description 01/12/2007 Correspondence None Hp Rois, Provider CONSENT AND RELEASE Social History Tobacco Use Types Packs/Day Years Used Date Smoking Tobacco: Never Alcohol Use Standard Drinks/Week Comments Not Asked 0 (1 standard drink = 0.6 oz pure alcoho l) Sex Assigned at Date Recorded Not on file documented as of this encounter Progress Notes Hp Rois, Provider - 01/12/2007 12:00 AM CDT documented in this encounter Plan of Treatment Not on filedocumented as of this encounter Visit Diagnoses Not on filedocumented in this encounter Care Teams Chiller Hand Relationship Specialty Start Date End Date Alisha Kimball MD PCP - General 07/08/[address] [place], [place] [phone] documented as of this encounter
--- OUTSIDE RECORDS SUMMARY | 2022-04-07 07:29 | XMS_ITS | Encounter Summary ---
:1955 Author [facility] Address [address], [place] [address] Care Team Providers Name Role Phone Alisha Kimball MD Primary Care Provider Encounter Details Date Type Department Care Team Description 11/30/2007 [facility] Kiah August H, OTR/L Mallet Finger (Primary [address] Dx) [address] [place] [phone] Social History Tobacco Use Types Packs/Day Years Used Date Smoking Tobacco: Never Alcohol Use Standard Drinks/Week Comments Not Asked 0 (1 standard drink = 0.6 oz pure alcoho l) Sex Assigned at Date Recorded Not on file documented as of this encounter Progress Notes Kiah August H - 11/30/2007 3:20 PM CDT HAND OCCUPATIONAL THERAPY DAILY NOTE 11/30/2007 Patient Name: Loc Velasco [id number] Payor: SELF [id number] Plan: SELF INSURED Product Type: *No Product type* Diagnosis: Mallet finger of left 3rd digit with stiffness throughout other joints and fingers. ICD-9-code: 736.1 Date of Onset: 06/02/07 Date of Surgery: not applicable Referring Physician: Jigar Mcgarry V Order Date(s): 08/09/07 Date of initial evaluation/progress note(s): 08/17/2007 , 11/01/07 Injury: Left Hand Dominance: Right CURRENT HOME PROGRAM : wean use of mallet splint, A/PROM, blocking, digisleeves VISIT NUMBER: 8 out of 8 PAIN: Intensity Level: Current 0/10 SUBJECTIVE Patient reports pain post stretching. OBJECTIVE Left middle PIP 0-72 DIP8-41 post treatment. TREATMENT Physical Agent Modalities: Paraffin wax 10 minutes for increased tissue extensibility Therapeutic Exercises: 20 minutes AROM/PROM of digits, Blocking and Tendon Glides Instructed pt. To not passively stretch and complete blocked flexion of middle finger DIP. Gentle joint mobilization to ring finger PIP joint. Fitted pt. With middle and ring finger edema sleeves to be worn intermittently throughout the day. ASSESSMENT At risk for injury : Edema: Range of Motion needs improvement Strength : Functional limitations TREATMENT PLAN Active ROM, Passive ROM, Splint Check and Paraffin Bath MINUTES SEEN: 30 Treatment Charges: Physical Agent Modalities: Paraffin bath Treatment: Therapeutic Exercises: Quantity: 1 Kiah Beal OTR/L documented in this encounter Plan of Treatment Not on filedocumented as of this encounter Visit Diagnoses Diagnosis Mallet finger - Primary documented in this encounter Care Teams Competitive Intelligence Manager Relationship Specialty Start Date End Date Alisha Kimball MD PCP - General 07/08/05 [address] [place] [address] documented as of this encounter
--- OUTSIDE RECORDS SUMMARY | 2022-04-07 07:29 | XMS_ITS | Encounter Summary ---
:1955 Author Organization [facility] Address [address] [facility] [place] [address] Care Team Providers Name Role Phone Alisha Kimball MD Primary Care Provider Reason for Visit Reason Comments INJURY, HAND hit today on door Right Encounter Details Date Type Department Care Team Description 01/12/2007 Office Visit [facility] Francisco Gupta Wrist Injury (Primary Medicine R, Dx) [address] [facility]. [address] [place] [address] [place] [address] [phone] Social History Tobacco Use Types Packs/Day Years Used Date Smoking Tobacco: Never Alcohol Use Standard Drinks/Week Comments Not Asked 0 (1 standard drink = 0.6 oz pure alcoho l) Sex Assigned at Date Recorded Not on file documented as of this encounter Last Filed Vital Signs Vital Sign Reading Time Taken Comments Blood Pressure 124/84 01/12/2007 1:40 PM CDT Pulse 72 01/12/2007 1:40 PM CDT Temperature 36.7 ??C (98 ??F) 01/12/2007 1:40 PM CDT Respiratory Rate - - Oxygen Saturation - - Inhaled Oxygen Concentration - - Weight 91.5 kg (201 lb 12.8 oz) 01/12/2007 1:40 PM CDT Height 165.1 cm (5' 5) 01/12/2007 1:40 PM CDT Body Mass Index 33.58 01/12/2007 1:40 PM CDT documented in this encounter Progress Notes Francisco Gupta R - 01/12/2007 2:31 PM CDT This office note has been dictated. Francisco Gupta MD Francisco Gupta - 01/12/2007 12:00 AM CDT The patient is a 51-year-old patient of Dr. Kimball who comes in for right hand/wrist injury. Apparently, her dog was running after another animal and, in the process, the patient hit the dorsum of her right hand and wrist against a door. The fingers are feeling numb. Otherwise, her past medical history is negative. She is not on any regular medications. On exam, there is a swelling of the dorsum of the right hand. There is some tenderness in the wrist also. I do not appreciate any swelling. The snuffbox is not tender. Elbows are normal. There is a small abrasion in the top of the right index finger, otherwise unremarkable exam. X-rays essentially reveal no fracture or dislocation. ASSESSMENT AND PLAN: Right hand and wrist soft tissue injury. I gave her a wrist splint to use for the next two or three days. Apply ice and antiinflammatories to be used p.r.n. Recheck in the next week or two if not improved, otherwise follow up p.r.n. P cc: documented in this encounter Procedure Notes Jose Salcido - 01/12/2007 12:00 AM CDTAssociated Order(s): WRIST 3 VIEWS (STANDARD) CLINICAL DATA: INJURY EXAMINATION: RIGHT WRIST 01/12/2007: FINDINGS: There is deformity in the ulnar styloid consistent with old fracture. Right wrist is otherwise normal. No acute fracture noted. Raman Spence MD P cc: Francisco Gupta MD Radiology [place] Jose Salcido - 01/12/2007 12:00 AM CDTAssociated Order(s): HAND 3 VIEWS (STANDARD) CLINICAL DATA: INJURY EXAMINATION: RIGHT HAND 3 VIEWS 01/12/2007: FINDINGS: Normal. No fracture. Raman Spence MD P cc: Francisco Gupta MD Radiology [place] documented in this encounter Plan of Treatment Not on filedocumented as of this encounter Procedures Procedure Name Priority Date/Time Associated Diagnosis Comme nts RADEX HAND MINIMUM 3 Routine 01/12/2007 Wrist Injury Results for this VIEWS procedure are i n the results section . RADEX WRST COMPL Routine 01/12/2007 Wrist Injury Results for this MINIMUM 3 VIEWS procedure ar e in the results section . documented in this encounter Results WRIST 3 VIEWS (STANDARD) (01/12/2007) Anatomical Region Laterality Modality Other Transcriptions Jose Salcido - 01/12/2007 12:00 AM C DT CLINICAL DATA: INJURY EXAMINATION: RIGHT WRIST 01/12/2007: FINDINGS: There is deformity in the uln ar styloid consistent with old fracture. Right wrist is otherwise norm al. No acute fracture noted. Raman Spence MD P cc: Francisco Gupta MD Radiology [place] Francisco Gupta MD RAD_1 Hand 3 views (01/12/2007) Anatomical Region Laterality Modality Other Transcriptions Jose Salcido - 01/12/2007 12:00 AM C DT CLINICAL DATA: INJURY EXAMINATION: RIGHT HAND 3 VIEWS 007: FINDINGS: Normal. No fracture. Raman Spence MD P cc: Francisco Gupta MD Radiology [place] Francisco Gupta MD RAD_1 documented in this encounter Visit Diagnoses Diagnosis Wrist injury - Primary Injury, other and unspecified, elbow, fo rearm, and wrist documented in this encounter Care Teams Residency Program Coordinator Relationship Specialty Start Date End Date Alisha Kimball MD PCP - General 07/08/05 [address] [place] [address] documented as of this encounter
--- OUTSIDE RECORDS SUMMARY | 2022-04-07 07:29 | XMS_ITS | Encounter Summary ---
:1955 Author Organization [facility] Address [address], [place] [address] Care Team Providers Name Role Phone Alisha Kimball MD Primary Care Provider Reason for Visit Reason Comments COUGH for several days Encounter Details Date Type Department Care Team Description 07/08/2005 Office Visit [facility] Alisha Kimball, COUGH (P rimary Dx); Practice MD SCREEN FOR LIPID DISORDERS [address] [facility]. [address] [place] [address] [place] [address] [phone] Social History Tobacco Use Types Packs/Day Years Used Date Smoking Tobacco: Never Alcohol Use Standard Drinks/Week Comments Not Asked 0 (1 standard drink = 0.6 oz pure alcoho l) Sex Assigned at Date Recorded Not on file documented as of this encounter Last Filed Vital Signs Vital Sign Reading Time Taken Comments Blood Pressure - - Pulse 78 07/08/2005 3:51 PM EXPEDITER Temperature 37 ??C (98.6 ??F) 07/08/2005 3:51 PM EXPEDITER Respiratory Rate 18 07/08/2005 3:51 PM EXPEDITER Oxygen Saturation 97% 07/08/2005 3:51 PM EXPEDITER Inhaled Oxygen Concentration - - Weight 83.9 kg (185 lb) 07/08/2005 3:51 PM EXPEDITER Height - - Body Mass Index - - documented in this encounter Progress Notes Alisha Kimball - 07/08/2005 12:00 AM CSTSUBJECTIVE: This is a 50-year-old, nonsmoker, seen today for evaluation of cough. She has had a cough for about two days. She describes paroxysms of coughing where she coughs so hard that she vomits. It is day and night. No fevers. No breathing difficulties. No wheezing. She denies any history of asthma or any other breathing problems. She really has not had much nasal congestion, runny nose. Occasional runny nose with her coughing spells. Sometimes she will have ear pain with her coughing spells as well. She has been using Comtrex which doesn't seem to help. There are some people at work with cough like this. No ill contacts at home. She has been a little bit hoarse because of the coughing. OBJECTIVE: Please see the nurse's note for vitals. General: Speaking in full sentences. No apparent distress. HEENT: Oropharynx clear. Mucous membranes moist. Neck is supple without adenopathy. Lungs are clear to auscultation bilaterally with good and equal air movement. Cardiovascular: Regular rate and rhythm, normal S1 and S2, no murmurs, rubs, or gallops. ASSESSMENT AND PLAN: Paroxysmal cough, suspicious for pertussis. I did elect to put her on Azithromycin. See orders. A pertussis swab was done and is pending. Will also treat with Robitussin with Codeine for nighttime and Tessalon Perles during the day. Potential side effects of all of her medications were reviewed and she will let me know if she has problems. She will also let me know if her cough does not seem to be improving over the next week or so, or sooner with any acutely worsening symptoms, fevers, difficulty breathing, or any other concerns. P cc: DITER documented in this encounter Plan of Treatment Not on filedocumented as of this encounter Procedures Procedure Name Priority Date/Time Associated Comments Diagnosis BORDETELLA PERTUSSIS Routine 07/08/2005 4:28 PM Cough R esults for this / PARAPERTUSSIS, EXPEDITER procedure a re in MOLECULAR DETECTION the resu lts section. documented in this encounter Results (ABNORMAL) B PERTUSSIS/PARA,PCR (07/08/2005 4:28 PM EXPEDITER) Component Value Ref Test Analysis Performed At [facility] Method Time Signature B Positive - [facility] pertussis/pa BORDETELLA ra PCR PARAPERTUSSIS DNA DETECTED (A) Comment: Negative - No Bordetella pertus sis DNA Detected Comment Referred to [facility] Specimen Anatomical Collection Method Collection Time Receive d Time (Source) Location / / Volume Laterality 07/08/2005 4:28 PM 6 4:29 EXPEDITER PM EXPEDITER Alisha Kimball MD LAB_1 Performing Organization Address City/State/ZIP Code Phon e Number [facility] [phone] [place] [address] [phone] documented in this encounter Visit Diagnoses Diagnosis Cough - Primary Screening for lipoid disorders documented in this encounter Care Teams Ground Instructor Advanced Relationship Specialty Start Date End Date Alisha Kimball MD PCP - General 07/08/05 [address] [place] [address] documented as of this encounter
--- OUTSIDE RECORDS SUMMARY | 2022-04-07 07:29 | XMS_ITS | Encounter Summary ---
:1955 Author Organization [facility] Address [address], [place] [address] Care Team Providers Name Role Phone Alisha Kimball MD Primary Care Provider Encounter Details Date Type Department Care Team Description 11/17/2007 [facility] Visit [facility] Kiah August H, OTR/L Mallet Finger (Primary [address] Dx) [address] [place] [phone] Social History Tobacco Use Types Packs/Day Years Used Date Smoking Tobacco: Never Alcohol Use Standard Drinks/Week Comments Not Asked 0 (1 standard drink = 0.6 oz pure alcoho l) Sex Assigned at Date Recorded Not on file documented as of this encounter Progress Notes Kiah August H - 11/17/2007 3:59 PM CDT HAND OCCUPATIONAL THERAPY DAILY NOTE 11/17/2007 Patient Name: Loc Velasco [id number] Payor: SELF [id number] Plan: SELF INSURED Product Type: *No Product [...] : wean use of mallet splint, A/PROM, blocking VISIT NUMBER: 6 out of 6 PAIN: Intensity Level: Current minimal with exercises/stretches. SUBJECTIVE Patient reports her middle finger DIP is in full extension in the mornings after wearing the splint all night. OBJECTIVE Left middle PIP 0-60 DIP 11-39 ring PIP 0-85 DIP 0-46 TREATMENT Physical Agent Modalities: Fluidotherapy 10 minutes for increased tissue extensibility Therapeutic Exercises: 20 minutes AROM/PROM of digits, Blocking and Tendon Glides Instructed pt. To not passively stretch and complete blocked flexion of middle finger DIP. Added light padding to figure 8 splint. ASSESSMENT At risk for injury : Edema: Range of Motion needs improvement Strength : Functional limitations TREATMENT PLAN Active ROM, Passive ROM, Splint Check and Paraffin Bath MINUTES SEEN: 30 Treatment Charges: Physical Agent Modalities: Fluidotherapy / whirlpool Treatment: Therapeutic Exercises: Quantity: 1 Kiah Beal,OTR/L documented in this encounter Plan of Treatment Not on filedocumented as of this encounter Visit Diagnoses Diagnosis Mallet finger - Primary documented in this encounter Care Teams Pad Tufter Relationship Specialty Start Date End Date Alisha Kimball MD PCP - General 07/08/05 [address] [place] [address] documented as of this encounter
--- OUTSIDE RECORDS SUMMARY | 2022-04-07 07:29 | XMS_ITS | Encounter Summary ---
:1955 Author Organization [facility] Address [address] [place] [address] Care Team Providers Name Role Phone Alisha Kimball MD Primary Care Provider Reason for Visit Reason Comments INJURY, FINGERS 3rd finger lt hand caught in car door last night Encounter Details Date Type Department Care Team Description 06/02/2007 Office Visit [facility] Gino Chavez, Rupt ure of Extensor Tendons of Hand and Wrist (Primary Dx); Practice MD Finger Injury [address] [place] [address] [address] [phone] [place] [address] (Wo rk) Social History Tobacco Use Types Packs/Day Years Used Date Smoking Tobacco: Never Alcohol Use Standard Drinks/Week Comments Not Asked 0 (1 standard drink = 0.6 oz pure alcoho l) Sex Assigned at Date Recorded Not on file documented as of this encounter Last Filed Vital Signs Vital Sign Reading Time Taken Comments Blood Pressure 122/84 06/02/2007 9:19 AM FILE SYSTEM INSTALLER Pulse 72 06/02/2007 9:19 AM FILE SYSTEM INSTALLER Temperature - - Respiratory Rate - - Oxygen Saturation - - Inhaled Oxygen Concentration - - Weight 75.8 kg (167 lb 3.2 oz) 06/02/2007 9:19 AM FILE SYSTEM INSTALLER Height - - Body Mass Index 27.82 01/12/2007 1:40 PM CDT documented in this encounter Progress Notes Gino Chavez - 06/02/2007 10:36 AM CST Loc Velasco is a 52 yr old female who normally sees Alisha Kimball MD. Last night the wind blew her car door closed and it jammed her middle finger. Her finger did not get smashed in the mechanism though. Since then hurts near DIP joint and cannot fully extend that joint. No prior finger problems. No redness, warmth, or fever. OBJECTIVE: No apparent distress BP 122/84 Pulse 72 Wt 167 lb 3.2 oz (75.84 kg) LMP Hysterectomy Finger with flexion at DIP. NO swelling. Minimal tenderness. No laxity X-Ray was normal to my reading ASSESSMENT: extensor tendon rupture. PLAN: placed in extension splint by nursing. Should maintain full extension for 7 weeks without allowing finger to bend at all during this time. Gino Chavez MD SYSTEM INSTALLER documented in this encounter Procedure Notes Milagro Valera - 06/02/2007 12:00 AM CSTAssociated Order(s): FINGER(S) INITIAL& FOLLOW UP CLINICAL DATA: LEFT MIDDLE FINGER JAMMED BY A CAR DOOR YESTERDAY, UNABLE TO EXTEND DIP EXAMINATION: LEFT THIRD FINGER 06/02/2007: FINDINGS: Normal examination. Milagro Valera MD A cc: Gino Chavez MD Radiology [place] SYSTEM INSTALLER documented in this encounter Plan of Treatment Not on filedocumented as of this encounter Procedures Procedure Name Priority Date/Time Associated Diagnosis Comme nts RADEX FNGR MINIMUM Routine 06/02/2007 12:00 AM Finger Injury R esults for this 2 VIEWS FILE SYSTEM INSTALLER procedure are i n the results section. documented in this encounter Results Finger (06/02/2007 12:00 AM FILE SYSTEM INSTALLER) Anatomical Region Laterality Modality Other Transcriptions Milagro Valera - 06/02/2007 12:00 AM CS T CLINICAL DATA: LEFT MIDDLE FINGER JAMMED BY A CAR DOOR YESTERDAY, UNABLE TO EXTEND DIP EXAMINATION: LEFT THIRD FINGER 06/02/20 07: FINDINGS: Normal examination. Milagro Valera MD A cc: Gino Chavez MD Radiology [place] Gino Chavez MD PROC_SINGLE documented in this encounter Visit Diagnoses Diagnosis Rupture of extensor tendons of hand and wrist - Primary Nontraumatic rupture of extensor tendons of hand and wrist Finger injury Injury, other and unspecified, finger documented in this encounter Care Teams Professor Of Biology Relationship Specialty Start Date End Date Alisha Kimball MD PCP - General 07/08/05 [address] [place] [address] documented as of this encounter
--- OUTSIDE RECORDS SUMMARY | 2022-04-07 07:29 | XMS_ITS | Encounter Summary ---
:1955 Author Organization [facility] Address [address], [place] [address] Care Team Providers Name Role Phone Alisha Kimball MD Primary Care Provider Encounter Details Date Type Department Care Team Description 12/13/2007 [facility] Visit [facility] Kiah August H, OTR/L Mallet Finger (Primary [address] Dx) [address] [place] [phone] Social History Tobacco Use Types Packs/Day Years Used Date Smoking Tobacco: Never Alcohol Use Standard Drinks/Week Comments Not Asked 0 (1 standard drink = 0.6 oz pure alcoho l) Sex Assigned at Date Recorded Not on file documented as of this encounter Progress Notes Kiah August H - 12/13/2007 9:27 AM CDT HAND OCCUPATIONAL THERAPY DAILY/PROGRESS NOTE 12/13/2007 Patient Name: Loc Velasco [id number] Payor: SELF [id number] Plan: SELF INSURED Product Type: *No Product [...] mallet splint, A/PROM, blocking, digisleeves VISIT NUMBER: 10 out of 10 PAIN: Intensity Level: Current 0/10 At rest, 3/10 with stretch SUBJECTIVE Patient reports she was gardening this weekend. OBJECTIVE Sensation: intact AROM: middle PIP 0-72 (at best) DIP 9-38 Edema: minimal TREATMENT Physical Agent Modalities: Fluidotherapy 10 minutes for increased tissue extensibility Therapeutic Exercises: 20 minutes AROM/PROM of digits, Blocking and Tendon Glides Instructed pt. To not passively stretch and complete blocked flexion of middle finger DIP. ASSESSMENT Pain: decreased Edema: decreased Range of Motion increased Strength : needs improvement, will formally test next visit. Functional limitations Pt. Has difficulty with filing as middle finger is stiff. Pt. Is dropping items. Previous goals met. New goals : In 4 weeks,pt. Will increase GIANG of middle finger by 15 degrees inorder to complete grasping of smaller objects without dropping them. TREATMENT PLAN Ultrasound, Active ROM, Passive ROM, Strengthening and Check homeworker/3pt. Pinch strength. Will continue to see pt. 1x/week for next 6 weeks. MINUTES SEEN: 30 Treatment Charges: Physical Agent Modalities: Fluidotherapy / whirlpool Treatment: Therapeutic Exercises: Quantity: 1 Kiah Beal,OTR/L documented in this encounter Plan of Treatment Not on filedocumented as of this encounter Visit Diagnoses Diagnosis Mallet finger - Primary documented in this encounter Care Teams Grey Washer Relationship Specialty Start Date End Date Alisha Kimball MD PCP - General 07/08/05 [address] [place] [address] documented as of this encounter
--- OUTSIDE RECORDS SUMMARY | 2022-04-07 07:29 | XMS_ITS | Encounter Summary ---
:1955 Author Organization [email or web address] Address [address] [place] [address] Care Team Providers Name Role Phone Carroll Kimball MD Primary Care Provider Reason for Visit Reason Comments MOLE she is fasting CONSTIPATION noticed a buldge in back Encounter Details Date Type Department Care Team Description 09/09/2006 Office Visit [facility] Carroll Kimball, Skin Les ion (Primary Dx); Practice Vaccin for DTP; [address] Screening Cholesterol Level; [place] [address] [address] Screening for Diabetes Mellitus; [phone] [place], [place] Frequent Urinat ion; [address] Cystocele; [phone] Constipation; (Work) Hypercholesteremia Social History Tobacco Use Types Packs/Day Years Used Date Smoking Tobacco: Never Alcohol Use Standard Drinks/Week Comments Not Asked 0 (1 standard drink = 0.6 oz pure alcoho l) Sex Assigned at Date Recorded Not on file documented as of this encounter Last Filed Vital Signs Vital Sign Reading Time Taken Comments Blood Pressure 132/78 09/09/2006 2:20 PM SETTLEMENT CLERK Pulse 82 09/09/2006 2:20 PM SETTLEMENT CLERK Temperature 37.1 ??C (98.7 ??F) 09/09/2006 2:20 PM SETTLEMENT CLERK Respiratory Rate 26 09/09/2006 2:20 PM SETTLEMENT CLERK Oxygen Saturation - - Inhaled Oxygen Concentration - - Weight 88.1 kg (194 lb 3.2 oz) 09/09/2006 2:20 PM SETTLEMENT CLERK Height - - Body Mass Index - - documented in this encounter Progress Notes Carroll Kimball - 09/11/2006 9:44 PM SETTLEMENT CLERK Addended by: CARROLL KIMBALL on: 09/11/2006 9:44:12 PM Modules accepted: Orders LEMENT CLERK Carroll Kimball - 09/09/2006 3:23 PM CST This office note has been dictated. Carroll Kimball MD LEMENT CLERK Carroll Kimball - 09/09/2006 12:00 AM SETTLEMENT CLERK SUBJECTIVE: Loc is seen today with several concerns. She starts out by saying that today when she went to the bathroom she noticed there was some type of bulge coming from her vagina. This was not painful. She says that she has not noticed this before. She is status post hysterectomy for menorrhagia. She believes this was in 1996. She had some type of bladder procedure at the same time for urinary incontinence. Since her hysterectomy she's had a pelvic pressure and also frequent urination. Occasionally some urinary urgency, but she denies any urinary incontinence at this time. At the same time she has had, what she thinks is, excessive thirst and some fatigue. She says her constipation continues. She had a normal colonoscopy except for some diverticulosis and internal hemorrhoids last summer. When she's constipated she'll feel abdominal cramping. She's tried increasing fluids and fiber intake, but it doesn't seem to help. She will sometimes use an mkmv-fvl-lloapyp stool softener. She's not sure if that helps. Her stool continues to be firm. She'll have an a bowel movement maybe every other day. She says there's a big mole on her back that's been there for a while. It's increasing in size and has become crusty. She has a history of significant sun exposure. No personal or family history of skin cancer. OBJECTIVE: Please see nursing note for vitals. Skin: On the right mid back is an 8 millimeter, round, raised, grayish, rough textured lesion consistent with a seborrheic keratosis. Otherwise no rash or remarkable lesions. Lungs are clear to auscultation bilaterally with good and equal movement. Cardiac: Regular rate and rhythm, normal S1 and S2, no murmurs, rubs or gallops. Neck is supple without adenopathy. No thyromegaly or mass. Abdomen: Active bowel sounds, soft, nontender, no organomegaly or mass. : external genitalia are normal appearance. With Valsalva she has, what appears to be, a cystocele. ASSESSMENT and PLAN: 1) Probable cystocele. I've recommended that she see Dr. Rutherford in Gynecology for this. A phone number was supplied and she'll make that appointment at her convenience and followup prn after that. 2) Skin lesion, back. It has a benign appearance and I'd have her observe this for now. 3) Chronic constipation. I believe this is the source of her abdominal pain and she may have some irritable bowel syndrome. She'll try some MiraLax. See orders. If she doesn't find that helpful or if she has problems with it, she will let me know. She'll continue with extra fiber and fluids. She also may have some pelvic floor dysfunction and if the problem persists she may benefit from physical therapy. 4) Urinary frequency, urgency. Likely this is related to her cystocele, but we'll check some lab studies, especially since she also says she has some polydipsia and fatigue. 5) Routine health maintenance. She's due for a diabetes and cholesterol screening. See orders. Results by mail. A cc: LEMENT CLERK documented in this encounter Plan of Treatment Not on filedocumented as of this encounter Procedures Procedure Name Priority Date/Time Associated Diagnosis Comme nts BASIC METABOLIC Routine 09/09/2006 3:39 PM Frequent Urination Results for this PANEL SETTLEMENT CLERK procedure are i n the results section. UA MICRO IF Routine 09/09/2006 3:39 PM Frequent Urination Res ults for this SETTLEMENT CLERK procedure are i n the results section. LIPID PANEL, FAST > Routine 09/09/2006 3:39 PM Screening Re sults for this 12 HOUR SETTLEMENT CLERK Cholesterol Level procedure are in the results section. URINE CULTURE Routine 09/09/2006 3:39 PM Frequent Urination Re sults for this SETTLEMENT CLERK procedure are i n the results section. UA MICRO Routine 09/09/2006 3:39 PM Results f or this SETTLEMENT CLERK procedure are i n the results section. documented in this encounter Results UA MICRO (09/09/2006 3:39 PM SETTLEMENT CLERK) [facility] [employer] Method Time Signature RBC'S 0-3 0 - 3 [facility] /hpf WBC'S 3-5 0 - 5 [facility] /hpf Epith, Many /hpf [facility] Squamous Bact Occ [facility] Casts 0 /lpf [facility] Other Mod Mucous [facility] Specimen Anatomical Collection Method Collection Time Receive d Time (Source) Location / / Volume Laterality 09/09/2006 3:39 PM 7 3:40 SETTLEMENT CLERK PM SETTLEMENT CLERK Carroll Kimball MD LAB_1 Performing Organization Address [facility]/ZIP [facility] Phon e Number [facility] [phone] [facility] [address] [place] [phone] URINE CULTURE (09/09/2006 3:39 PM SETTLEMENT CLERK) Component Value Ref Test Analysis Performed At [facility] Range Method Time Signature Specimen Urine [facility] Description Midstream Special Unspecified [facility] Requests Culture No Growth [facility] After 1 Day Report Status Final [id number] [facility] Specimen Anatomical Collection Method Collection Time Receive d Time (Source) Location / / Volume Laterality 09/09/2006 3:39 PM 7 3:40 SETTLEMENT CLERK PM SETTLEMENT CLERK Carroll Kimball MD LAB_1 Performing Organization Address City/[facility] Phon e Number [facility] [phone] [facility] [address] [place] [phone] (ABNORMAL) UA MICRO IF (09/09/2006 3:39 PM SETTLEMENT CLERK) [facility] Method Time Signature Appr Yellow [facility] Appr Clear [facility] Sp Gr >1.030 (H) 1.005 - [facility] 1.03 Leuk Sml (A) [place] [facility] Nitr Neg [place] [facility] pH 5.5 4.5 - 8.0 [facility] Prot Neg [place] mg/dl [facility] Gluc Neg [place] mg/dl [facility] Ket Tr (A) [place] mg/dl [facility] Urob 0.2 0.2 - 1.0 [facility] EU/dl Bili Neg [place] [facility] Blood Neg [place] Comment Urine [facility] Cultured Specimen Anatomical Collection Method Collection Time Receive d Time (Source) Location / / Volume Laterality 09/09/2006 3:39 PM 7 3:40 SETTLEMENT CLERK PM SETTLEMENT CLERK Carroll Kimball MD LAB_1 Performing Organization Address [facility] Phon e Number [facility] [employer] [phone] [facility] [address] [place] [phone] BASIC METABOLIC PANEL (09/09/2006 3:39 PM SETTLEMENT CLERK) athologist Signature BUN 20 10 - 26 [facility] mg/dl Sodium 140 135 - 145 [facility] mmol/L Potassium 4.2 3.5 - 5.3 [facility] mmol/L Chloride 105 95 - 105 [facility] mmol/L CO2 25 22 - 31 [facility] mmol/L Glucose 89 65 - 115 [facility] mg/dl Creatinine 0.9 0.6 - 1.3 [facility] mg/dl GFR, Estimated 69.9 >60 [facility] ml/min/1.7 3m2 GFR, Est., If >80.0 >60 [facility] Black ml/min/1.7 3m2 Calcium 9.4 8.2 - 10.0 [facility] mg/dl Anion Gap 10 7 - 17 [facility] (calc.) mmol/L Specimen Anatomical Collection Method Collection Time Receive d Time (Source) Location / / Volume Laterality 09/09/2006 3:39 PM 7 3:40 SETTLEMENT CLERK PM SETTLEMENT CLERK Carroll Kimball MD LAB_1 Performing Organization Address [facility] Phon e Number [facility] [employer] [phone] [phone] (ABNORMAL) CHOLESTEROL LIPID PANEL FAST >12HR (09/09/2006 3:39 PM SETTLEMENT CLERK) P athologist Signature Cholesterol 205 (H) <200 mg/dl [facility] Comment: Result should not be interpreted without the patient's history of cardiovascular risk factors. Triglyceride 137 <200 mg/dl [facility] HDL 40 >35 mg/dl [facility] LDL, Calc. 138 mg/dl [facility] Hours Fasting 12 hours [facility] Specimen Anatomical Collection Method Collection Time Receive d Time (Source) Location / / Volume Laterality 09/09/2006 3:39 PM 7 3:40 SETTLEMENT CLERK PM SETTLEMENT CLERK Carroll Kimball MD LAB_1 Performing Organization Address City/State/ZIP Code Phon e Number [facility] [phone] [facility] [address] [phone] documented in this encounter Visit Diagnoses Diagnosis Skin lesion - Primary Unspecified disorder of skin and subcuta neous tissue Need for prophylactic vaccination with c ombined cagpetqboq-uqfkcug-yxziqoidy (DTP) vaccine Screening cholesterol level Screening for lipoid disorders Screening for diabetes mellitus Frequent urination Urinary frequency Cystocele Cystocele, midline Constipation Unspecified constipation Hypercholesteremia Pure hypercholesterolemia documented in this encounter Care Teams Sound Tester Relationship Specialty Start Date End Date Carroll Kimball MD PCP - General 07/08/05 [address] [place] [address] documented as of this encounter
--- OUTSIDE RECORDS SUMMARY | 2022-04-07 07:29 | XMS_ITS | Encounter Summary ---
:1955 Author Organization [facility] Address [address], [place] [address] Care Team Providers Name Role Phone Alisha Kimball MD Primary Care Provider Encounter Details Date Type Department Care Team Description 01/30/2008 Office Visit [facility] Kiah August H, OTR/L Mallet Finger (Primary [address] Dx) [address] [place] [phone] Social History Tobacco Use Types Packs/Day Years Used Date Smoking Tobacco: Never Alcohol Use Standard Drinks/Week Comments Not Asked 0 (1 standard drink = 0.6 oz pure alcoho l) Sex Assigned at Date Recorded Not on file documented as of this encounter Progress Notes Kiah August H - 01/30/2008 3:33 PM CDT HAND OCCUPATIONAL THERAPY DAILY/DISCHARGE NOTE 01/30/2008 Patient Name: Loc Velasco [id number] Payor: SELF [id number] Plan: SELF INSURED Product Type: *No Product [...] digisleeves, taped flexion, tendon glides VISIT NUMBER: 15 out of 15 PAIN: Intensity Level: Current 0/10 SUBJECTIVE Patient reports buttoning and tying is difficult. OBJECTIVE Left middle PIP 0-79 DIP 9-44 ring PIP 0-94 DIP 0-51 Left api product manager strength 24,35,26 Left 3pt. Pinch 10,12,11 TREATMENT Physical Agent Modalities: Fluidotherapy 10 minutes for increased tissue extensibility Therapeutic Exercises: 20 minutes AROM/PROM of digits, Blocking and Tendon Glides. Instructed pt. Toadd strengthening pieces to therapy. ASSESSMENT Goals partially met. Pt. Has maximized benefits in hand therapy. Pt. Will continue with home exercise program for increase ROM and strength in her left hand. Pt. Continues to have end range flexion of ring and middle fingers at the PIP and DIP joints. Pt. Isunable to make a tight fist. MINUTES SEEN: 30 Treatment Charges: Physical Agent Modalities: Fluidotherapy / whirlpool Treatment: Therapeutic Exercises: Quantity: 1 YOLANDA Ellis/Salome documented in this encounter Plan of Treatment Not on filedocumented as of this encounter Visit Diagnoses Diagnosis Mallet finger - Primary documented in this encounter Care Teams Planner Scheduler Relationship Specialty Start Date End Date Alisha Kimball MD PCP - General 07/08/05 [address] [place] [address] documented as of this encounter
--- OUTSIDE RECORDS SUMMARY | 2022-04-07 07:29 | XMS_ITS | Encounter Summary ---
:1955 Author Organization [facility] Address [address], [place] [address] Care Team Providers Name Role Phone Miky Sultana MD Primary Care Provider Encounter Details Date Type Department Care Team Description 02/25/2005 Correspondence None Hp Rois, Provider CONSENT AND RELEASE Social History Tobacco Use Types Packs/Day Years Used Date Smoking Tobacco: Never Alcohol Use Standard Drinks/Week Comments Not Asked 0 (1 standard drink = 0.6 oz pure alcoho l) Sex Assigned at Date Recorded Not on file documented as of this encounter Progress Notes Hp Rois, Provider - 02/25/2005 12:00 AM CDT documented in this encounter Plan of Treatment Not on filedocumented as of this encounter Visit Diagnoses Not on filedocumented in this encounter Care Teams Industrial Specialist Relationship Specialty Start Date End Date Miky Sultana MD PCP - General 09/21/01 07/07/05 [address] [place] [address] documented as of this encounter
--- OUTSIDE RECORDS SUMMARY | 2022-04-07 07:29 | XMS_ITS | Encounter Summary ---
:1955 Author Organization [facility] Address [address], [place] [address] Care Team Providers Name Role Phone Alisha Kimball MD Primary Care Provider Encounter Details Date Type Department Care Team Description 01/02/2008 Office Visit Specialty Center Kiah August H, OTR/L Mallet Finger (Primary [address] Dx) [address] [place] [phone] Social History Tobacco Use Types Packs/Day Years Used Date Smoking Tobacco: Never Alcohol Use Standard Drinks/Week Comments Not Asked 0 (1 standard drink = 0.6 oz pure alcoho l) Sex Assigned at Date Recorded Not on file documented as of this encounter Progress Notes Kiah August H - 01/02/2008 4:37 PM CDT HAND OCCUPATIONAL THERAPY DAILY NOTE 01/02/2008 Patient Name: Loc Velasco [id number] Payor: SELF [id number] Plan: SELF INSURED Product Type: *No Product [...] digisleeves, taped flexion, tendon glides VISIT NUMBER: 13 out of 13 PAIN: Intensity Level: Current /10 with stretch SUBJECTIVE Patient reports she is making progress slowly and she continues to push on her fingers. OBJECTIVE Automotive Exhaust Emissions Technician strength: right 39,44,43 left 24,22,25 3pt. Pinch: right 14,14,13 left 6,7,9 Left middle PIP 0-71 DIP 0-40 TREATMENT Physical Agent Modalities: Fluidotherapy 10 minutes for increased tissue extensibility Therapeutic Exercises: 10 minutes AROM/PROM of digits, Blocking and Tendon Glides Physical Agent Modalities: Ultrasound: continuous, 3 MHz, 1.0 intensity, 2 minutes of set up time, 8 minutes of treatment, location: Dorsal/volar middle and ring fingers, for purpose of decrease inflammation/pain and Treatment number: 3 ASSESSMENT Pain: decreased Edema: decreased Range of Motion increased Strength : needs improvement, Functional limitations TREATMENT PLAN Ultrasound, Active ROM, Passive ROM, initiate Strengthening as indicated Will continue to see pt. 1x/week MINUTES SEEN: 30 Treatment Charges: Physical Agent Modalities: Ultrasound: Quantity: 1 Treatment: Therapeutic Exercises: Quantity: 1 Kiah Beal OTR/L documented in this encounter Plan of Treatment Not on filedocumented as of this encounter Visit Diagnoses Diagnosis Mallet finger - Primary documented in this encounter Care Teams Ward Helper Relationship Specialty Start Date End Date Alisha Kimball MD PCP - General 07/08/05 [address] [place] [address] documented as of this encounter
--- OUTSIDE RECORDS SUMMARY | 2022-04-07 07:29 | XMS_ITS | Encounter Summary ---
:1955 Author Organization [facility] Address [address] [address] Care Team Providers Name Role Phone Alisha Kimball MD Primary Care Provider Encounter Details Date Type Department Care Team Description 11/27/2005 Office Visit [facility] Mari Pickens MD LICHENIFICATION [address] [place], [place] [address] [address] [address] [place], [place] [address] (Wo rk) Social History Tobacco Use Types Packs/Day Years Used Date Smoking Tobacco: Never Alcohol Use Standard Drinks/Week Comments Not Asked 0 (1 standard drink = 0.6 oz pure alcoho l) Sex Assigned at Date Recorded Not on file documented as of this encounter Consult Notes Mari Pickens - 11/27/2005 12:00 AM CDTSUBJECTIVE: The patient is a 50 -year-old woman who presents to clinic today with a very pruritic lichenified eruption limited primarily to her left pretibial surface that started approximately six months ago. It was suggested that she see us by Dr. Keyes. A week ago she was given topical triamcinolone cream and she has seen some but not significant improvement. She tells me this all started at an area where she had cut her leg on her car causing a small wound to appear. She denies the use of any topical antibiotic ointments to the area. Itching started around the wound and she started scratching. Over the last four months the pruritic area has expanded significantly to affect almost her entire lower left leg. She is traveling out to [place] to attend her son's graduation within the next week and would like this as clear as possible. She has never had any problem with it on her right lower leg or elsewhere. OBJECTIVE: Exam reveals extensive lichenification involving the entire left pretibial surface. Right lower leg and arms were clear. ASSESSMENT: Lichen simplex chronicus. PLAN: Begin Clobetasol cream b.i.d. to affected area for the next two to three weeks. She is to call me after two to three weeks. If there is no improvement, we will pursue skin biopsy. 11/27/2005 10:56 A cc: documented in this encounter Nursing Notes 11/27/2005 10:00 AM CDT >> ERENDIRA GRIER 11/27/2005 10:10 am Loc Velasco is here today forrash on left leg since July. Primary care provider is MD Erendira Cutler RN, 11/27/2005, 10:10 AM documented in this encounter Plan of Treatment Not on filedocumented as of this encounter Visit Diagnoses Diagnosis Lichenification and lichen simplex chron icus documented in this encounter Care Teams Regional Sales Leader Relationship Specialty Start Date End Date Alisha Kimball MD PCP - General 07/08/05 [address] [place] [address] documented as of this encounter
--- OUTSIDE RECORDS SUMMARY | 2022-04-07 07:29 | XMS_ITS | Encounter Summary ---
:1955 Author Organization [facility] Address [address], [place] [address] Care Team Providers Name Role Phone Alisha Kimball MD Primary Care Provider Encounter Details Date Type Department Care Team Description 11/10/2007 Office Visit [facility] Kiah August H, OTR/L Mallet Finger (Primary [address] Dx) [address] [place] [phone] Social History Tobacco Use Types Packs/Day Years Used Date Smoking Tobacco: Never Alcohol Use Standard Drinks/Week Comments Not Asked 0 (1 standard drink = 0.6 oz pure alcoho l) Sex Assigned at Date Recorded Not on file documented as of this encounter Progress Notes Kiah August H - 11/10/2007 3:36 PM CDT HAND OCCUPATIONAL THERAPY DAILY NOTE 11/10/2007 Patient Name: Loc Velasco [id number] Payor: SELF [id number] Plan: SELF INSURED Product Type: *No Product [...] of mallet splint, A/PROM, blocking VISIT NUMBER: 5 out of 5 PAIN: Intensity Level: Current 5/10 pain in left ring PIP joint. SUBJECTIVE Patient reports middle finger tip is dropping a little. Pt. Reports volar middle finger feels funny tingling/numb. OBJECTIVE Left middle finger DIP 10-32 TREATMENT Physical Agent Modalities: Paraffin bath for increased tissue extensibility of digits, 5 minutes. Orthotic Fitting/Trainin minutes. Patient received treatment in Hand- Occupational Therapy and was fitted with: Left , long finger, Custom Finger- Based Splint: Finger 8 Splint to limited extension of PIP joint as pt. 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 Patient is to wear this splint: days only and wear mallet splint while sleeping. Proper fit assessed by therapist. Patient trained in wear and care of splint. Also, patient understands that if redness or other signs of pressure appear and do not diminish after 30 minutes patient should contact this department as soon as possible. Therapeutic Exercises: 25 minutes, AROM/PROM of digits, instructed pt. In Blocking and Tendon Glides Instructed pt. To exclude passive stretch and blocked flexion of middle finger DIP. ASSESSMENT At risk for injury : Edema: Range of Motion needs improvement Strength : Functional limitations TREATMENT PLAN Active ROM, Passive ROM, Splint Check and Paraffin Bath MINUTES SEEN: 45 Treatment Charges: Physical Agent Modalities: Paraffin bath Treatment: Orthotic/Prosthetic (mgmt/training/assess/fit) Quantity: 1 Therapeutic Exercises: Quantity: 1 Finger splint YOLANDA Ellis/Salome documented in this encounter Plan of Treatment Not on filedocumented as of this encounter Visit Diagnoses Diagnosis Mallet finger - Primary documented in this encounter Care Teams Net Developer Software Engineer C Relationship Specialty Start Date End Date Alisha Kimball MD PCP - General 07/08/05 [address] [place] [address] documented as of this encounter
--- OUTSIDE RECORDS SUMMARY | 2022-04-07 07:29 | XMS_ITS | Encounter Summary ---
:1955 Author Organization [facility] Address [address] [place] [address] Care Team Providers Name Role Phone Alisha Kimball MD Primary Care Provider Encounter Details Date Type Department Care Team Description 01/26/2006 Orders Only [facility] MD [employer] Contact Bill [address] [place] [address] Mailstop [id number] [phone] (Wo rk) Social History Tobacco Use Types [...] on filedocumented in this encounter Care Teams Steel Roller Relationship Specialty Start Date End Date Alisha Kimball MD PCP - General 07/08/[address] [place] [address] documented as of this encounter
--- OUTSIDE RECORDS SUMMARY | 2022-04-07 07:29 | XMS_ITS | Encounter Summary ---
:1955 Author Organization [facility] Address [address], [place] [address] Care Team Providers Name Role Phone Alisha Kimball MD Primary Care Provider Encounter Details Date Type Department Care Team Description 08/31/2007 Office Visit [facility] Arlene Hensley Ma llet Finger (Primary [facility] OTR/L Dx) [address] [place] [address] [place], [place] [phone] Social History Tobacco Use Types Packs/Day Years Used Date Smoking Tobacco: Never Alcohol Use Standard Drinks/Week Comments Not Asked 0 (1 standard drink = 0.6 oz pure alcoho l) Sex Assigned at Date Recorded Not on file documented as of this encounter Progress Notes [place]Nicolasa hensley - 08/31/2007 7:05 AM CST HAND OCCUPATIONAL THERAPY DAILY NOTE 08/31/2007 Patient Name: Loc Velasco [id number] Payor: SELF [id number] Plan: SELF INSURED Product Type: *No Product type* Diagnosis: Mallet finger of left 3rd digit with stiffness throughout other joints and fingers. ICD-9-code: 736.1 Date of Onset: 06/02/07 Date of Surgery: not applicable Referring Physician: Jigar Mcgarry V Order Date(s): 08/09/07 Date of initial evaluation/progress note(s): 08/17/2007 Injury: Left Hand Dominance: Right CURRENT HOME PROGRAM : multimedia designer use of mallet splint VISIT NUMBER: 3 out of 3 PAIN: Intensity Level: Current Not rated/10 SUBJECTIVE Patient reports multimedia designer use of splint. Changes splint every two days or so. OBJECTIVE Pt with improved DIP ext. TREATMENT Splint check/adjustment: 25 minutes. Remolded volar splint into increased DIP extension. Adjusted dorsal splint to improve fit. Washed and dried fingere and splints. Issued wicking fabric stockinette to assist with skin quality to decrease the chance of maceration of tissue. ASSESSMENT At risk for injury : Edema: Range of Motion Strength : Functional limitations TREATMENT PLAN Pt will continue multimedia designer splinting through . Will reschedule her Dr Meza to coincide with that date which will be 8 weeks post initiation of splinting. Will also schedule to return to OT that same date for initiation of gentle range of motion 3x/day, continuing with splint use at all other times. Pt to return sooner if needed for splint adjustments. Pt to call if questions arise. MINUTES SEEN: 30 Treatment Charges: Treatment: Orthotic / Prosthetic Check out / Adjustment: Quantity: 2 Nicolasa Hensley OTR, CHT, MLD OYMENT ENGINEER documented in this encounter Plan of Treatment Not on filedocumented as of this encounter Visit Diagnoses Diagnosis Mallet finger - Primary documented in this encounter Care Teams Industrial Coffee Grinder Relationship Specialty Start Date End Date Alisha Kimball MD PCP - General 07/08/05 [address] [place] [address] documented as of this encounter
--- OUTSIDE RECORDS SUMMARY | 2022-04-07 07:29 | XMS_ITS | Encounter Summary ---
:1955 Author Organization [facility] Address [address], [place] [address] Care Team Providers Name Role Phone Alisha Kimball MD Primary Care Provider Encounter Details Date Type Department Care Team Description 12/27/2007 Office Visit Specialty Center Kiah August H, OTR/L Mallet Finger (Primary [address] Dx) [address] [place] [phone] Social History Tobacco Use Types Packs/Day Years Used Date Smoking Tobacco: Never Alcohol Use Standard Drinks/Week Comments Not Asked 0 (1 standard drink = 0.6 oz pure alcoho l) Sex Assigned at Date Recorded Not on file documented as of this encounter Progress Notes Kiah August H - 12/27/2007 10:05 AM CDT HAND OCCUPATIONAL THERAPY DAILY NOTE 12/27/2007 Patient Name: Loc Velasco [id number] Payor: SELF [id number] Plan: SELF INSURED Product Type: *No Product [...] digisleeves, taped flexion, tendon glides VISIT NUMBER: 12 out of 12 PAIN: Intensity Level: Current Up to 8/10 with passive stretch at dorsal middle finger DIP SUBJECTIVE Patient reports she is taping OBJECTIVE Left middle finger PIP 0-74 DIP 9-40 ring PIP 6-85 DIP 0-49 post treatment TREATMENT Physical Agent Modalities: Fluidotherapy 10 minutes for increased tissue extensibility Therapeutic Exercises: 10 minutes AROM/PROM of digits, Blocking and Tendon Glides Physical Agent Modalities: Ultrasound: continuous, 3 MHz, 1.0 intensity, 2 minutes of set up time, 8 minutes of treatment, location: Dorsal/volar middle and ring fingers, for purpose of decrease inflammation/pain and Treatment number: 2 ASSESSMENT Pain: decreased Edema: decreased Range of Motion increased Strength : needs improvement, will formally test next visit. Functional limitations TREATMENT PLAN Ultrasound, Active ROM, Passive ROM, Strengthening and Check fiction and nonfiction writer prose/3pt. Pinch strength. Will continue to see pt. 1x/week for next 6 weeks. MINUTES SEEN: 30 Treatment Charges: Physical Agent Modalities: Ultrasound: Quantity: 1 Treatment: Therapeutic Exercises: Quantity: 1 Kiah Beal OTR/Salome documented in this encounter Plan of Treatment Not on filedocumented as of this encounter Visit Diagnoses Diagnosis Mallet finger - Primary documented in this encounter Care Teams Girl Friday Relationship Specialty Start Date End Date Alisha Kimball MD PCP - General 07/08/05 [address] [place] [address] documented as of this encounter
--- OUTSIDE RECORDS SUMMARY | 2022-04-07 07:29 | XMS_ITS | Encounter Summary ---
:1955 Author Organization [facility] Address [address] [address] Care Team Providers Name Role Phone Alisha Kimball MD Primary Care Provider Encounter Details Date Type Department Care Team Description 08/17/2007 Office Visit Specialty Center Arlene Hensley Ma llet Finger (Primary [address] [facility] OTR/L Dx) [address] [place] [address] [place], [place] [phone] Social History Tobacco Use Types Packs/Day Years Used Date Smoking Tobacco: Never Alcohol Use Standard Drinks/Week Comments Not Asked 0 (1 standard drink = 0.6 oz pure alcoho l) Sex Assigned at Date Recorded Not on file documented as of this encounter Progress Notes [place]Nicolasa hensley - 08/17/2007 9:00 AM CST HAND OCCUPATIONAL THERAPY SPLINT EVALUATION NOTE 08/17/2007 Patient Name: Loc Velasco [id number] Payor: SELF [id number] Plan: SELF INSURED Product Type: *No Product type* Diagnosis: Mallet finger of left 3rd digit with stiffness throughout other joints and fingers. ICD-9-code: 736.1 Date of Onset: 06/02/07 Date of Surgery: not applicable Referring Physician: Jigar Mcgarry V Order Date(s): 08/09/07 Date of initial evaluation/progress note(s): 08/17/2007 Injury: Left Hand Dominance: Right Past Medical History: not applicable History of Injury: Slammed finger on a car door Previous therapy for this condition splinting only, but splint included DIP and PIP Precautions: Mallet finger precautions. 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 Problems with tying shoes and cutting meat. Bumps her finger frequently, which causses increase in swelling. Drops things more often. Eating: Moderately limited Writing: Mildly limited Dressing: Moderately limited Grooming: Moderately limited Gripping: Severely limited Driving: Mildly limited Work tasks: Moderately limited Household tasks: Moderately limited Other home tasks: Mildly limited Leisure activities: No problem PATIENT CONCERNS/GOALS: More mobility and try to get the finger straighter again. PAIN: Intensity Level: Current 0/10, Worst 5/10, Least 0/10 Location: Across dorsal 3rd DIP of left hand. SENSATION: pt reports that there is decrease in sensation across the tip of the finger. EDEMA: Moderate edema through left 3rd DIP and PIP Circumferential measurements: 3rd DIP left 5.3cm, right 5.2 cm PIP left 6.5, right 6.2 WOUND / INCISION: not applicable SCAR: not applicable ACTIVE RANGE OF MOTION Left Hand Index Middle Ring Small MCP PIP 0 88 0 31 0 81 0 73 DIP 0 31 20 42 0 37 0 55 GIANG 119 53 118 128 Pt with passive ext of long DIP to neutral only, with no hyperextension present. At risk for injury : Pain: Edema: Range of Motion Strength : Functional limitations TREATMENT TODAY INCLUDED: Completion of evaluation. Splint fabrication: 15 minutes Self care retrainin minutes and instructed pt in techniques for managing her grooming with splint. Education about precautions and importance of maintaining full ext at all times. Therapeutic procedure: 5 minutes. Gentle passive range of motion to increase 3rd PIP flex.. Passive range of motion when washing to increase ext of DIP, without hyperext at PIP. Loc Velasco received treatment in Hand-Occupational Therapy and was fitted with: Left , long finger, Custom mallet splint with PIP free. One was fabricated dorsally, the other volarly, so pt can alternate use to protect skin. Loc is to wear this splint: real time analyst Proper fit assessed by therapist. Patient trained in wear and care of splint. Also, patient understands that if redness or other signs of pressure appear and do not diminish after 30 minutes she should contact this department as soonas possible. Patient received initial education regarding: Anatomy and Positioning Current Home Exercise Program: 08/17/2007 : Gentle passive range of motion to increase 3rd PIP flex..Passive range of motion when washing to increase ext of DIP, without hyperext at PIP. SHORT TERM GOALS: will be completed in 4 week(s) Loc will be: independent in applying, checking and removing properly fitted splint in 1 visit, understand precautions re: diagnosis and splint use in one visit and call the clinic with any questionsre: home program or splint fit in order to allow future independence with self cares. BOOM PUMP OPERATOR GOALS: to be completed in 12 weeks. Patient will have functional use of the involved upper extremity for the majority of home and work activities upon discharge from Hand Occupational Therapy. REHAB POTENTIAL: Good TOLERANCE TOWARD TREATMENT: Excellent TREATMENT PLAN:May include the following when deemed appropriate: Splint Fabrication/Fitting: Edema Management: Therapeutic Exercise: Strengthening Manual Techniques: Patient Education: Loc Velasco will continue hand / occupational therapy 1 times per week for 12 weeks. Questions regarding this hand therapy evaluation can be directed to [phone]. MINUTES SEEN: 50 NEXT TREATMENT: Remold splints into increased extension. Review Home Exercise Program. Determine range of motion gains. Assess frequency needs. Nicolasa Hensley, OTR, CHT, MLD Treatment Charges: Evaluations: O.T. Evaluation Qty: 1 Treatment: Selfcare Activities: Quantity: 1 Orthotic/Prosthetic (mgmt/training/assess/fit) Quantity: 1 Custom Splints: Finger splint - Quantity: 1 MANAGER documented in this encounter Plan of Treatment Not on filedocumented as of this encounter Visit Diagnoses Diagnosis Mallet finger - Primary documented in this encounter Care Teams Powder Room Attendant Relationship Specialty Start Date End Date Alisha Kimball MD PCP - General 07/08/[address] [place] [address] documented as of this encounter
--- OUTSIDE RECORDS SUMMARY | 2022-04-07 07:29 | XMS_ITS | Encounter Summary ---
:1955 Author Organization [facility] Address [address], [place] [address] Care Team Providers Name Role Phone Alisha Kimball MD Primary Care Provider Reason for Referral Specialty Diagnoses / Procedures Referred By Contact Refer red To Contact Jigar Mcgarry MD [address] [place] [address] Referral ID Status Reason Start Date Expiration Date Visits Requ ested Visits Authorized TOP SETTER Reason for Visit Reason Comments NEW MEMBER VISIT eval crush injury to her lef t long finger referred by Dr. Alisha Kimball DOI 06/02/07 Encounter Details Date Type Department Care Team Description 08/09/2007 [facility] Visit [facility] Jigar Mcgarry et Finger (Primary [address] Plastic [facility] Hand VMD Dx) Surgery [address] [place] [address] [place] [phone] Social History Tobacco Use Types Packs/Day Years Used Date Smoking Tobacco: Never Alcohol Use Standard Drinks/Week Comments Not Asked 0 (1 standard drink = 0.6 oz pure alcoho l) Sex Assigned at Date Recorded Not on file documented as of this encounter Last Filed Vital Signs Vital Sign Reading Time Taken Comments Blood Pressure 121/84 08/09/2007 4:16 PM CAN TOP SETTER Pulse 73 08/09/2007 4:16 PM CAN TOP SETTER Temperature 36.7 ??C (98.1 ??F) 08/09/2007 4:16 PM CAN TOP SETTER Respiratory Rate 16 08/09/2007 4:16 PM CAN TOP SETTER Oxygen Saturation - - Inhaled Oxygen Concentration - - Weight 73.5 kg (162 lb) 08/09/2007 4:16 PM CAN TOP SETTER Height 162.6 cm (5' 4) 08/09/2007 4:16 PM CAN TOP SETTER Body Mass Index 27.81 08/09/2007 4:16 PM CAN TOP SETTER documented in this encounter Patient Instructions Patient InstructionsJigar Mcgarry V - 08/09/2007 4:45 PM CST Hand Therapy CATIA. Return to clinic in 8 weeks. Jigar Mcgarry MD Plastic and Hand Surgery TOP SETTER documented in this encounter Progress Notes Jigar Mcgarry V - 08/09/2007 12:00 AM CAN TOP SETTER Loc Velasco is a 52 -year-old patient who is referred to me by Dr. Alisha Kimball with stiffness of the left third digit. The patient had sustained a crush injury from a car door on June 02. An x-ray taken at that time was unremarkable. Patient was treated for seven weeks with a splint. From her description, she had a marked mallet. The splint was across her PIP and her DIP. She has a result in significant stiffness now of her PIP both of her long finger and also her other digits on this hand. In addition, she still has a bit of a mallet, although it sounds like it is much better than it was previously. She presently has a 20 degree extension lag. I reviewed her x-rays from her original injury, and they are unremarkable. I believe that her main problem is continued mallet. We will send her to our hand therapist to make a specific custom-made splint just for across her DIP . At the same time encourage range of motion exercises of her PIP of all of her digits. I will see her back in approximately eight weeks. P cc: MD Alisha Matos MD TOP SETTER documented in this encounter Plan of Treatment Not on filedocumented as of this encounter Visit Diagnoses Diagnosis Mallet finger - Primary documented in this encounter Care Teams Hardboard Press Operator Relationship Specialty Start Date End Date Alisha Kimball MD PCP - General 07/08/05 [address] [place] [address] documented as of this encounter
--- OUTSIDE RECORDS SUMMARY | 2022-04-07 07:30 | XMS_ITS | Encounter Summary ---
:1955 Author Organization [employer] Address [address] [place] [address] Care Team Providers Name Role Phone Luis Pierce MD Primary Care Provider Unavailable Reason for Visit Reason Comments PAIN, FOOT VIA INTERFACE Encounter Details Date Type Department Care Team Description 02/17/2000 Office Visit [facility] Anam Mosquera DPM PAIN IN LIMB Surgery/Podiatry [address] [place], [place] [address] (Wo rk) Social History Tobacco Use Types Packs/Day Years Used Date Smoking Tobacco: Never Assessed Sex Assigned at Date Recorded Not on file documented as of this encounter Progress Notes Anam Mosquera - 02/17/2000 12:00 AM CDTS: 45-year-old patient here today for evaluation of pain and swelling in the right foot. She had an ankle sprain 10/04/99 and has had problems ever since. She is uncertain whether the current problem is related to her ankle sprain. The ankle sprain is now completely resolved and her pain is more medially on the dorsum of the foot. The foot is swollen to the point where she can't wear her normal shoes. The patient has tried icing, decreased activities and ibuprofen without much benefit. She is allergic to Sulfa medications. 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 O: Edema is noted throughout the entire right foot and she has mild edema on the left side. I could not reproduce any pain with palpation over the metatarsocuneiform region. She has a fairly normal foot structure with pain over the sinus tarsi region. The ankle is not necessarily unstable. She has good range of motion at all joints. Muscle strength is normal and equal bilaterally. She is wearing some type of a sandal today. Neurologic and vascular exam is normal. No dermatologic findings are noted. A: Foot pain right. P: Recommended NSAID's, ice, rest and appropriate shoes. She was given a prescription for Naprosyn and may need to be seen again in about a month if she does not see improvement. I would consider orthotics versus Physical Therapy versus compression therapy. cc: Miky Sultana MD documented in this encounter Plan of Treatment Not on filedocumented as of this encounter Visit Diagnoses Diagnosis Pain in limb documented in this encounter Care Teams Configuration Management Specialist Relationship Specialty Start Date End Date Luis Pierce MD PCP - General 05/27/1998 documented as of this encounter
--- OUTSIDE RECORDS SUMMARY | 2022-04-07 07:30 | XMS_ITS | Encounter Summary ---
:1955 Author Organization [facility] Address [address] [place] [address] Care Team Providers Name Role Phone Luis Pierce MD Primary Care Provider Unavailable Encounter Details Date Type Department Care Team Description 08/18/2001 Office Visit [facility] Hiram Romero MD CONJUNCTIVITIS NOS [address] [place] [address] [place], [place] [phone] Social History Tobacco Use Types Packs/Day Years Used Date Smoking Tobacco: Never Assessed Sex Assigned at Date Recorded Not on file documented as of this encounter Progress Notes Hiram Lincoln - 08/18/2001 12:00 AM CSTS: The patient is a 46 -year-old female who reports that about 14 or 15 days ago, she had onset of some eye redness and also she had some mattery material in her eyes intermittently in the morning. She called the clinic nine days ago and was prescribed Tobramycin eyedrops. She has been using these and the eye symptoms have continued with mattering, but not every morning. She has a very mild eye irritation. She states that also for several mornings, her eyes have been more reddened and then usually by later in the day, the redness diminishes. She does have some itchy eyes, intermittently, also for the past two weeks. She has minimal nose congestion. She has not noted fevers. She has used no new or different soaps or facial creams or makeup or clothes detergent. O: On examination now, blood pressure is 112/80. Temperature is 96.9. Pulse is 68. Respiratory rate is 16. Eye examination at this time reveals normal appearing sclera and pupils and iris areas and the eyelids are also normal. No erythema is noted. Eyelids are not swollen or tender. No evidence of any foreign body on the eye or under the lids. A: Bilateral eye symptoms and itching. Possibly allergic eye symptoms. does not seem like a bacterial eye infection. P: She was given Livostin allergy eyedrops to use one drop four times a day to each eye as needed. If continued, increased, or new symptoms, or problems, she can follow-up. IN SUMMARY: eye symptoms cc: MAKER APPRENTICE documented in this encounter Plan of Treatment Not on filedocumented as of this encounter Visit Diagnoses Diagnosis Conjunctivitis unspecified Conjunctivitis, unspecified documented in this encounter Care Teams Minute Clerk For Basic Traffic Relationship Specialty Start Date End Date Luis Pierce MD PCP - General 05/27/1998 documented as of this encounter
--- OUTSIDE RECORDS SUMMARY | 2022-04-07 07:30 | XMS_ITS | Encounter Summary ---
:1955 Author [facility] Address [address] [place] [address] Care Team Providers Name Role Phone Luis Pierce MD Primary Care Provider Unavailable Encounter Details Date Type Department Care Team Description 05/03/2000 Orders Only Social History Tobacco Use Types Packs/Day Years Used Date Smoking Tobacco: Never Assessed Sex Assigned at Date Recorded Not on file documented as of this encounter Procedure Notes Leia Mora - 05/03/2000 12:00 AM CSTAssociated Order(s): L-SPINE 2-3 VIEWS CLINICAL DATA: ATYPICAL LOW BACK PAIN INTERPRETATION: LUMBAR SPINE 05/04/00: FINDINGS: There is disk space narrowing and end plate spurring from L2-3 to L5-S1 compatible with degenerative disk disease. Degenerative facet joint disease is also seen at L4-5 and L5-S1. No acute fracture of subluxation. Leia Mora MD cc: Radiology [place] Full Range I Wyucc MILL TECHNICIAN documented in this encounter Plan of Treatment Not on filedocumented as of this encounter Procedures Procedure Name Priority Date/Time Associated Diagnosis Comme nts RADEX SPI LUMBOSAC 05/03/2000 12:00 AM Re sults for this 2/3 VIEWS WINDMILL TECHNICIAN procedure are i n the results section. documented in this encounter Results L-SPINE 2-3 VIEWS (05/03/2000 12:00 AM WINDMILL TECHNICIAN) Anatomical Region Laterality Modality Other Specimen (Source) Anatomical Location Collection Method / Collectio n Time Received Time / Laterality Volume 05/03/2000 Transcriptions Leia Mora - 05/03/2000 12:00 AM CSTC LINICAL DATA: ATYPICAL LOW BACK PAIN INTERPRETATION: LUMBAR SPINE 05/04/00: FINDINGS: There is disk space narrowing and end plate spurring from L2-3 to L5-S1 compatible with degenerative di sk disease. Degenerative facet joint disease is also seen at L4-5 and L 5-S1. No acute fracture of subluxation. Leia Mora MD cc: Radiology [place] Full Range I [facility] Full Range Wyuc RAD_1 documented in this encounter Visit Diagnoses Not on filedocumented in this encounter Care Teams Architectural Modeler Relationship Specialty Start Date End Date Luis Pierce MD PCP - General 05/27/1998 documented as of this encounter
--- OUTSIDE RECORDS SUMMARY | 2022-04-07 07:30 | XMS_ITS | Encounter Summary ---
:1955 Author Organization [facility] Address [address] [place] [address] Care Team Providers Name Role Phone Luis Pierce MD Primary Care Provider Unavailable Reason for Visit Reason Comments BACK PAIN VIA INTERFACE Encounter Details Date Type Department Care Team Description 12/18/1999 Office Visit [facility] Michele ury LOW BACK PAIN(ACUTE)<6 WEEKS ; [address] [place] [address] Social History Tobacco Use Types Packs/Day Years Used Date Smoking Tobacco: Never Assessed Sex Assigned at Date Recorded Not on file documented as of this encounter Progress Notes Nick Rodriguez W - 12/18/1999 12:00 AM CDTS: One to two week history of intermittent low back discomfort. The low back discomfort was worse today it seemed to be radiating toward the right lower abdomen. She felt yucky today and may have had some chills. Denies abdominal pain, urinary symptoms or change in bowel habits. Hysterectomy and removal of one ovary in August 1998. O: Temperature 97.3, blood pressure 122/80. Appears well. Ambulates without discomfort. There is no tenderness to palpation over the low back. No costovertebral angle tenderness to percussion. Abdomen is soft and nontender with no masses or organomegaly noted. Urinalysis shows specific gravity 1.004, with negative leukocyte esterase and nitrite with 0 red cells per high power field, 0 to 2 white cells per high power field and no bacteria. A: Low back pain. P: Etdd-xmu-upczmhg ibuprofen 800 mg three times a day. Local application of heat using a heating pad on a low setting for one half hour three four times a day daily may also be helpful. Recheck if symptoms persist or worsen. Addendum: She notes that her back pain is aggravated by sitting or laying. IN SUMMARY: low back pain documented in this encounter Plan of Treatment Not on filedocumented as of this encounter Visit Diagnoses Diagnosis Lumbago Laboratory examination documented in this encounter Care Teams Patient Admitting Clerk Relationship Specialty Start Date End Date Luis Pierce MD PCP - General 05/27/1998 documented as of this encounter
--- OUTSIDE RECORDS SUMMARY | 2022-04-07 07:30 | XMS_ITS | Encounter Summary ---
:1955 Author Organization [facility] Address [address] [place] [address] Care Team Providers Name Role Phone Luis Pierce MD Primary Care Provider Unavailable Encounter Details Date Type Department Care Team Description 12/12/1998 Orders Only Epic, [place] [address] Social History Tobacco Use Types Packs/Day Years Used Date Smoking Tobacco: Never Assessed Sex Assigned at Date Recorded Not on file documented as of this encounter Plan of Treatment Not on filedocumented as of this encounter Procedures Procedure Name Priority Date/Time Associated Diagnosis Comme nts URINE CULTURE Routine 12/12/1998 7:06 PM Results for this CDT procedure are i n the results section . documented in this encounter Results URINE CULTURE (MIDSTREAM) (12/12/1998 7:06 PM CDT) [facility] Method Time Signature Specimen Urine [facility] Description Special None [facility] Requests Culture No Growth [facility] After 1 Day Report Status Final [facility] Report Status [id number] [facility] Specimen Anatomical Collection Method Collection Time Receive d Time (Source) Location / / Volume Laterality 12/12/1998 7:06 PM 199 9 7:07 CDT PM CDT Narrative [facility] - 12/12/1998 7:06 PM CDT Ordered by [facility] Internal Processing Epic LAB_1 Performing Organization Address City/State/ZIP Code Phon e Number [facility] [phone] [facility] [address] [address] documented in this encounter Visit Diagnoses Not on filedocumented in this encounter Care Teams Branch Operation Evaluation Manager Relationship Specialty Start Date End Date Luis Pierce MD PCP - General 05/27/1998 documented as of this encounter
--- OUTSIDE RECORDS SUMMARY | 2022-04-07 07:30 | XMS_ITS | Encounter Summary ---
:1955 Author Organization [facility] Address [address] [place] [address] Care Team Providers Name Role Phone Luis Pierce MD Primary Care Provider Unavailable Encounter Details Date Type Department Care Team Description 12/30/1998 Office Visit [facility] Emily uBrrows, ENURESIS NOS [address] PAR[employer], [place] [address] [address] [facility] [phone] [place], [place] [address] (Wo rk) Social History Tobacco Use Types Packs/Day Years Used Date Smoking Tobacco: Never Assessed Sex Assigned at Date Recorded Not on file documented as of this encounter Progress Notes Emily Lei - 12/30/1998 12:00 AM CDTS: A 43-year-old female returning in follow-up of urinary frequency and urgency that has been present since bladder repair on 08/22/98. She has been seen numerous times in the past and has been treated for bladder infections and has had no relief in her symptoms. At last visit, she had a UA/UC and was cathed for postresidual and there was none. Trial of Ditropan. She is taking 2.5 mg b.i.d. and has had significant improvement in symptoms. 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 She states that she can sit for about four hours at a time. She can actually go out shopping and is not looking for the first bathroom to be available. Her frequency is gone and her nocturia is left. She is satisfied with the results. O: Blood pressure: 122/78. Patient has not had sexual intercourse so she is not aware if she has had an improvement in leakage of urine with intercourse. She will monitor that over the next couple of months. I did talk to her again about the use of Innova stimulator and she is going to think about this some more and if she would like to proceed, she is going to give me a call and a referral for DME for Innova stimulator will be given to the patient and then she will follow up approximately two months later. If she should have return of her symptoms, I would at that point in time, do a vaginal exam and wet prep. A: Improvement in urinary frequency and urgency. P: As above. cc: documented in this encounter Plan of Treatment Not on filedocumented as of this encounter Visit Diagnoses Diagnosis Unspecified urinary incontinence documented in this encounter Care Teams Web Portal Developer Relationship Specialty Start Date End Date Luis Pierce MD PCP - General 05/27/1998 documented as of this encounter
--- OUTSIDE RECORDS SUMMARY | 2022-04-07 07:30 | XMS_ITS | Encounter Summary ---
:1955 Author Organization [facility] Address [address] [place] [address] Care Team Providers Name Role Phone Luis Pierce MD Primary Care Provider Unavailable Reason for Visit Reason Comments ANKLE PAIN VIA INTERFACE Encounter Details Date Type Department Care Team Description 10/04/1999 Orders Only [facility] SPRAIN/STRAIN OF ANKLE NOS; [address] LOWER LEG INJURY NOS [place], [place] [id number] Social History Tobacco Use Types Packs/Day Years [...] and recheck with her usual clinic, at [place], for follow-up care. A: Right ankle sprain. P: As above. IN SUMMARY: RIGHT ANKLE SPRAIN cc: INSPECTOR documented in this encounter Procedure Notes Brittney [...] cc: Radiology SP Full Range I Spucc INSPECTOR documented in this encounter Plan of Treatment Not on filedocumented as of this encounter Procedures Procedure Name Priority Date/Time Associated Diagnosis Comme nts RADEX ANKLE COMPL 10/04/1999 12:00 AM Lower Leg Injury Nos Results for this MINIMUM 3 VIEWS DIE INSPECTOR procedure ar e in the results section. documented in this encounter Results ANKLE 3 VIEWS (10/04/1999 12:00 AM DIE INSPECTOR) Anatomical Region Laterality Modality Other Specimen (Source) [...] foot documented in this encounter Care Teams Medical Equipment Sales Relationship Specialty Start Date End Date Luis Pierce MD PCP - General 05/27/1998 documented as of this encounter
--- OUTSIDE RECORDS SUMMARY | 2022-04-07 07:30 | XMS_ITS | Encounter Summary ---
:1955 Author Organization [facility] Address [address] [address] Care Team Providers Name Role Phone Luis Pierce MD Primary Care Provider Unavailable Encounter Details Date Type Department Care Team Description 12/17/1998 Orders Only Hafsa Lei APRN, CNP [address] [place], [place] [address] (Wo rk) Social History Tobacco Use Types Packs/Day Years Used Date Smoking Tobacco: Never Assessed Sex Assigned at Date Recorded Not on file documented as of this encounter Plan of Treatment Not on filedocumented as of this encounter Procedures Procedure Name Priority Date/Time Associated Diagnosis Comme nts URINE CULTURE Routine 12/17/1998 4:36 PM Results for this CDT procedure are i n the results section . documented in this encounter Results URINE CULTURE (MIDSTREAM) (12/17/1998 4:36 PM CDT) Component Value Ref Test Analysis Performed At [facility] Range Method Time Signature Specimen Urine [facility] Description Special Sensitivity [facility] Requests Culture No Growth [facility] After 1 Day Report Status Final [facility] Report Status [id number] [facility] Specimen Anatomical Collection Method Collection Time Receive d Time (Source) Location / / Volume Laterality 12/17/1998 4:36 PM 9 7:24 CDT PM CDT Emily Lei APRN, CNP LAB_1 Performing Organization Address City/State/ZIP Code Phon e Number [facility] [phone] [facility] [address] [address] documented in this encounter Visit Diagnoses Not on filedocumented in this encounter Care Teams Home Health Aid Relationship Specialty Start Date End Date Luis Pierce MD PCP - General 05/27/1998 documented as of this encounter
--- OUTSIDE RECORDS SUMMARY | 2022-04-07 07:30 | XMS_ITS | Encounter Summary ---
:1955 Author Organization [facility] Address [address] [place] [address] Care Team Providers Name Role Phone Luis Pierce MD Primary Care Provider Unavailable Encounter Details Date Type Department Care Team Description 02/22/2001 Office Visit [facility] Miky Sultana MD CHONDROMALACIA PATELLAE Practice [address] [facility] [address] [place] [address] [place] [address] Social History Tobacco Use Types Packs/Day Years Used Date Smoking Tobacco: Never Assessed Sex Assigned at Date Recorded Not on file documented as of this encounter Progress Notes Miky Sultana - 02/22/2001 12:00 AM CDTS: The patient fell on her right knee back in September of this year. Because of persistent pain in January, we obtained an magnetic resonance imaging scan which showed chondromalacia patella and some bruising of the patellofemoral joints. No meniscus or ligamentous injuries were noted. She returns today stating that she is continuing with pain and catching in the knee. She has been unable to ride a bike and has pain with any prolonged walking or any other activities. She has noted no swelling in the knee. O: Weight is 186 pounds. Blood pressure is 150/88. Examination of the right knee reveals no swelling or effusion. There is no localized tenderness. There is some crepitus and apprehension with range of motion. Collateral ligaments are stable and nontender. Drawer sign and Tee tests are negative. Mik test is negative. A: Persistent chondromalacia patella, right knee. P: The patient was referred to physical therapy. A steroid injection was also offered but she declined at this time. if it is not improving with the therapy, she will return for consideration of a steroid injection. IN SUMMARY: FOLLOW UP RIGHT KNEE PAIN cc: documented in this encounter Plan of Treatment Not on filedocumented as of this encounter Visit Diagnoses Diagnosis Chondromalacia of patella documented in this encounter Care Teams Drafter Geological Relationship Specialty Start Date End Date Luis Pierce MD PCP - General 05/27/1998 documented as of this encounter
--- OUTSIDE RECORDS SUMMARY | 2022-04-07 07:30 | XMS_ITS | Encounter Summary ---
:1955 [address] [facility] Address [address] [place] [address] Care Team Providers Name Role Phone Miky Sultana MD Primary Care Provider Encounter Details Date Type Department Care Team Description 11/20/2002 Office Visit [facility] Miky Sultana MD TENOSYNOVITIS Practice [address] [facility] FOOT/ANKLE [address] [place] [address] [place] [address] [phone] Social History Tobacco Use Types Packs/Day Years Used Date Smoking Tobacco: Never Alcohol Use Standard Drinks/Week Comments Not Asked 0 (1 standard drink = 0.6 oz pure alcoho l) Sex Assigned at Date Recorded Not on file documented as of this encounter Last Filed Vital Signs Vital Sign Reading Time Taken Comments Blood Pressure 140/70 11/20/2002 1:40 PM CDT Pulse 62 11/20/2002 1:40 PM CDT Temperature - - Respiratory Rate - - Oxygen Saturation - - Inhaled Oxygen Concentration - - Weight 86.6 kg (191 lb) 11/20/2002 1:40 PM CDT Height - - Body Mass Index - - documented in this encounter Progress Notes 11/20/2002 1:40 PM CDT Loc Velasco is here today for rt foot problem. Are you having other pain today, that you want to discuss with the provider? -NO Preventive Services up to date? -YES Immunizations up to date? -YES Do you ever feel physically threatened or emotionally afraid? -NO Tobacco Status reviewed? (see History Social-Substance) -YES environmental services attendant offered? -NOT APPLICABLE. Aspirin taken daily? -NO BP was taken on the RIGHT arm. Large cuff used? -NO Health Education given? -NO. Contact phone number [phone](home) [phone] (work), alternate phone number . James Tai Hudson, NANCY 11/20/2002 1:25 PM No current prescriptions on file. Alyxdheeraj Miky Sultana - 11/20/2002 12:00 AM CDTPROBLEM: R foot pain SUBJECTIVE: The patient complains of pain in the top of her R foot for a couple of weeks. There's been no recent history of injury. She notes particularly increased pain when she first gets up and walks and also if she does any twisting motion with her foot. She has some pain up into the calf as well. She doesn't recall any recent or remote injuries to that area, but she states it feels similar to when she's had beavers splints when she was growing up. OBJECTIVE: Weight is 191 pounds, blood pressure 140/70, pulse 62, exam of R lower leg and foot reveals no obvious swelling. There's no localized tenderness to palpation. The area of tenderness is along the anterior compartment muscles and the dorsiflexor tendons. ASSESSMENT: Probable anterior compartment tendonitis R foot. PLAN: Patient will wear a supportive tie shoe and was given Naproxen 500 mg b.i.d. She was referred to Podiatry for further evaluation. P cc: Miky Sultana - 11/20/2002 12:00 AM CDT documented in this encounter Plan of Treatment Not on filedocumented as of this encounter Visit Diagnoses Diagnosis Tenosynovitis of foot and ankle documented in this encounter Care Teams Estimator Lumber Relationship Specialty Start Date End Date Miky Sultana MD PCP - General 09/21/01 07/07/05 [address] [place] [address] documented as of this encounter
--- OUTSIDE RECORDS SUMMARY | 2022-04-07 07:30 | XMS_ITS | Encounter Summary ---
:1955 Author Organization [facility] Address [address] [place] [address] Care Team Providers Name Role Phone Miky Sultana MD Primary Care Provider Encounter Details Date Type Department Care Team Description 01/15/2000 Orders Only Nitish Gotti MD SEBORRHEI C KERATOSIS NOS Social History Tobacco Use Types Packs/Day Years Used Date Smoking Tobacco: Never Assessed Sex Assigned at Date Recorded Not on file documented as of this encounter Plan of Treatment Not on filedocumented as of this encounter Procedures Procedure Name Priority Date/Time Associated Diagnosis Comme [facility] DERMATOPATHOLOGY Routine 01/15/2000 Seborrheic Keratosis Nos Results for this procedure are i n the results section . documented in this encounter Results DERMATOPATHOLOGY (01/15/2000) Component Value Ref Test Analysis Performed At [facility] Method Time [facility] Dermatopathology [facility] DERMATOPATHOLOG[facility] Patient: BENY VERDUGO : 09/11/1937 Med Rec: [id number] Phone: ??-- Date of BX: 01/15/2000 Date Acc: 01/16/2000 Date of DX: 01/20/2000 Physician: NITISH GOTTI MD INTERP: Mat Delgado Mark S. MICRO: ??The specimen shows hyperkeratosis with basaloid epidermal hyperplasia and horn cyst formation typical of a seborrheic keratosis. DIAGNOSIS: ??NECK, LEFT : SEBORRHEIC KERATOSIS SNOMED-T: ??[id number] SNOMED-M: [id number] ICD9-CM: 702.19 {} Specimen (Source) Anatomical Location Collection Method / Collectio n Time Received Time / Laterality Volume 01/15/2000 Nitish Gotti MD PAPS Performing Organization Address City/State/ZIP Code Phon e Number [facility] DERMATOPATHOLOGY [address] [place] [address] documented in this encounter Visit Diagnoses Diagnosis Other seborrheic keratosis documented in this encounter Care Teams Apartment Rental Agent Relationship Specialty Start Date End Date Miky Sultana MD PCP - General 09/21/01 07/07/05 [address] [place] [address] documented as of this encounter
--- OUTSIDE RECORDS SUMMARY | 2022-04-07 07:30 | XMS_ITS | Encounter Summary ---
:1955 Author Organization [employer] Address [address] [place] [address] Care Team Providers Name Role Phone Miky Sultana MD Primary Care Provider Reason for Visit Reason Comments INFECTION, URINARY TRACT Encounter Details Date Type Department Care Team Description 02/25/2005 Office Visit [facility] Alisha Kimball, URINARY FREQUENCY (Primary Dx); Practice NONSPECIF SKIN ERUPT NEC; [address] [place] [address] [place] [address] [phone] Social History Tobacco Use Types Packs/Day Years Used Date Smoking Tobacco: Never Alcohol Use Standard Drinks/Week Comments Not Asked 0 (1 standard drink = 0.6 oz pure alcoho l) Sex Assigned at Date Recorded Not on file documented as of this encounter Last Filed Vital Signs Vital Sign Reading Time Taken Comments Blood Pressure 168/108 02/25/2005 2:01 PM (from Extend ed CDT Vitals) Pulse 84 02/25/2005 2:00 PM CDT Temperature 37.2 ??C (98.9 ??F) 02/25/2005 2:00 PM CDT Respiratory Rate 18 02/25/2005 2:00 PM CDT Oxygen Saturation - - Inhaled Oxygen - - Concentration Weight 88.5 kg (195 lb) 02/25/2005 2:00 PM CDT Height - - Body Mass Index - - documented in this encounter Progress Notes 02/25/2005 1:40 PM CDT This office note has been dictated. MD Jigar Cutler Karen K - 02/25/2005 12:00 AM CDTSUBJECTIVE: This is my first visit with this 50 -wqbz-pcb-rwogel seen today primarily for evaluation of some irritation in her perineal area. She says that it gets so bad that she can't sit comfortably. She has had this three times in the past year. She has not been seen for this before. It apparently resolved in its own. She has tried changing her underwear, going without underwear. She has tried everything she can think of including Vagisil powder and cream and this doesn't seem to help. She does have some burning with urination but this seems to be external. She has not had any urinary frequency, urgency or voiding in small amounts. No associated fevers, abdominal pain, or back pain. She has no known history of diabetes and denies any unexplained weight loss, fatigue, polyuria or polydipsia. OBJECTIVE: Please see nurses note for vitals. : She has some sharply marginated areas of erythema in her perineal area that is really diffuse. There are no discrete lesions. No pain, exudate or scale. ASSESSMENT AND PLAN: 1. Perineal irritation, most consistent with a yeast infection. I recommended a trial of Nystatin cream bid layered with bpke-wfc-pwdczge 1% cortisone cream. She is counseled that this should resolve fairly quickly with this treatment over the next couple of weeks. If that is not the case or if things are getting worse, she will let me know. We also discussed the importance of keeping that area extremely dry. I agree with going without underwear at nighttime, for example. She may even need to use a natural sciences department chair after showering. 2. Hypertension. She tells me her blood pressure, overall, has been increasing along with her weight. We reviewed her chart today. There is a family history of hypertension in both parents. Her father also had an [place]. We discussed medications. I recommended first doing some screening lab work. See orders. If those results are normal, I will contact her to get her started on some blood pressure medication. A cc: documented in this encounter Plan of Treatment Not on filedocumented as of this encounter Results HEMOGRAM/PLTS (02/25/2005 2:35 PM CDT) athologist Signature WBC 8.5 4.0 - 11.0 [facility] k/ul RBC 4.58 4.0 - 5.2 [facility] M/ul Hemoglobin 13.9 12.0 - 16.0 [facility] g/dl HCT 40.0 36.0 - 46.0 [facility] % MCV 87.1 80 - 100 fl [facility] MCH 30.3 26 - 34 pg [facility] MCHC 34.8 32 - 36 % [facility] RDW 13.1 11.5 - 14.5 [facility] % Platelets 286 150 - 450 [facility] k/ul Specimen Anatomical Collection Method Collection Time Receive d Time (Source) Location / / Volume Laterality 02/25/2005 2:35 PM 5 2:36 CDT PM CDT Alisha Kimball MD LAB_1 Performing Organization Address [facility] Phon e Number [facility] [employer] [phone] [phone] SODIUM (02/25/2005 2:35 PM CDT) athologist Signature Sodium 140 135 - 145 [facility] mmol/L Specimen Anatomical Collection Method Collection Time Receive d Time (Source) Location / / Volume Laterality 02/25/2005 2:35 PM 5 2:36 CDT PM CDT Alisha Kimball MD LAB_1 Performing Organization Address [facility] Phon e Number [facility] [phone] [phone] POTASSIUM (02/25/2005 2:35 PM CDT) athologist Signature Potassium 4.2 3.5 - 5.3 [facility] mmol/L Specimen Anatomical Collection Method Collection Time Receive d Time (Source) Location / / Volume Laterality 02/25/2005 2:35 PM 5 2:36 CDT PM CDT Alisha Kimball MD LAB_1 Performing Organization Address City/State/ZIP Code Phon e Number [facility] [phone] [facility] [address] [address] GLUCOSE - RANDOM < 8HR FASTING (V77.1) (02/25/2005 2:35 PM CDT) athologist Signature Glucose 111 65 - 115 [facility] mg/dl Hours Fasting 2 hours [facility] Specimen Anatomical Collection Method Collection Time Receive d Time (Source) Location / / Volume Laterality 02/25/2005 2:35 PM 5 2:36 CDT PM CDT Alisha Kimball MD LAB_1 Performing Organization Address City/[facility] Phon e Number [facility] [phone] [facility] [address] [place] [phone] CO2 (02/25/2005 2:35 PM CDT) athologist Signature CO2 28 22 - 31 [facility] mmol/L Specimen Anatomical Collection Method Collection Time Receive d Time (Source) Location / / Volume Laterality 02/25/2005 2:35 PM 5 2:36 CDT PM CDT Alisha Kimball MD LAB_1 Performing Organization Address City/[facility] Phon e Number [facility] [phone] [facility] [address] [place] [phone] CREATININE / GFR (02/25/2005 2:35 PM CDT) athologist Signature Creatinine 0.9 0.6 - 1.3 [facility] mg/dl GFR, Estimated 70.2 >60 [facility] ml/min/1.7 3m2 GFR, Est., If >80.0 >60 [facility] Black ml/min/1.7 3m2 Specimen Anatomical Collection Method Collection Time Receive d Time (Source) Location / / Volume Laterality 02/25/2005 2:35 PM 5 2:36 CDT PM CDT Alisha Kimball MD LAB_1 Performing Organization Address City/[facility]/ZIP Code Phon e Number [facility] [phone] [facility] [address] [address] CHLORIDE (02/25/2005 2:35 PM CDT) P athologist Signature Chloride 104 95 - 105 [facility] mmol/L Specimen Anatomical Collection Method Collection Time Receive d Time (Source) Location / / Volume Laterality 02/25/2005 2:35 PM 5 2:36 CDT PM CDT Alisha Kimball MD LAB_1 Performing Organization Address [facility]/ZIP Code Phon e Number [facility] [phone] [facility] [address] [place] [phone] CALCIUM (02/25/2005 2:35 PM CDT) P athologist Signature Calcium 9.5 8.2 - 10.0 [facility] mg/dl Specimen Anatomical Collection Method Collection Time Receive d Time (Source) Location / / Volume Laterality 02/25/2005 2:35 PM 5 2:36 CDT PM CDT Alisha Kimball MD LAB_1 Performing Organization Address City/[facility]/ZIP Code Phon e Number [facility] [phone] [facility] [address] [place] [phone] BUN (02/25/2005 2:35 PM CDT) P athologist Signature BUN 17 10 - 26 [facility] mg/dl Specimen Anatomical Collection Method Collection Time Receive d Time (Source) Location / / Volume Laterality 02/25/2005 2:35 PM 5 2:36 CDT PM CDT Alisha Kimball MD LAB_1 Performing Organization Address City/[facility]/ZIP Code Phon e Number [facility] [phone] [facility] [address] [place] [phone] ALT (SGPT) (02/25/2005 2:35 PM CDT) athologist Signature ALT (SGPT) 34 0 - 55 U/L [facility] Specimen Anatomical Collection Method Collection Time Receive d Time (Source) Location / / Volume Laterality 02/25/2005 2:35 PM 5 2:36 CDT PM CDT Alisha Kimball MD LAB_1 Performing Organization Address [facility] Phon e Number [facility] [employer] [phone] [facility] [address] [place] [phone] AST (02/25/2005 2:35 PM CDT) athologist Signature AST (SGOT) 16 <45 U/L [facility] Specimen Anatomical Collection Method Collection Time Receive d Time (Source) Location / / Volume Laterality 02/25/2005 2:35 PM 5 2:36 CDT PM CDT Alisha Kimball MD LAB_1 Performing Organization Address [facility] Phon e Number [facility] [employer] [phone] [address] URINE CULTURE IF (02/25/2005 1:40 PM CDT) [facility] gist Method Time Signature Urine Cult If UC Not [facility] Indicated Specimen Anatomical Collection Method Collection Time Receive d Time (Source) Location / / Volume Laterality 02/25/2005 1:40 PM 5 1:41 CDT PM CDT Alisha Kimball MD LAB_1 Performing Organization Address [facility] Phon e Number [facility] [employer] [phone] [address] UA MICRO IF (02/25/2005 1:40 PM CDT) [facility] gist Method Time Signature Appr Yellow [facility] Appr Clear [facility] Sp Gr 1.025 1.005 - [facility] 1.030 Leuk Neg [place] [facility] Nitr Neg [place] [facility] pH 6.0 4.5 - 8.0 [facility] Prot Neg [place] mg/dl [facility] Gluc Neg [place] mg/dl [facility] Ket Neg [place] mg/dl [facility] Urob 0.2 0.2 - 1.0 [facility] EU/dl Bili Neg [place] [facility] Blood Neg [place] [facility] Comment Micro Not [facility] Indicated Specimen Anatomical Collection Method Collection Time Receive d Time (Source) Location / / Volume Laterality 02/25/2005 1:40 PM 5 1:41 CDT PM CDT Alisha Kimball MD LAB_1 Performing Organization Address City/State/ZIP Code Phon e Number [facility] [phone] [address] documented in this encounter Visit Diagnoses Diagnosis Urinary frequency - Primary Rash and other nonspecific skin eruption Elevated blood pressure reading without diagnosis of hypertension documented in this encounter Care Teams Criminal Analyst Relationship Specialty Start Date End Date Miky Sultana MD PCP - General 09/21/01 07/07/05 [address] [place] [address] documented as of this encounter
--- OUTSIDE RECORDS SUMMARY | 2022-04-07 07:30 | XMS_ITS | Encounter Summary ---
:1955 Author Organization [facility] Address [address] [facility] [place] [place] [address] Care Team Providers Name Role Phone Luis Pierce MD Primary Care Provider Unavailable Reason for Visit Reason Comments PAIN, NOS VIA INTERFACE Encounter Details Date Type Department Care Team Description 01/27/2000 Office Visit [facility] Miky Sultana MD [facility] NOS Practice [address] [facility] [address] [place] [address] [place] [address] Social History Tobacco Use Types Packs/Day Years Used Date Smoking Tobacco: Never Assessed Sex Assigned at Date Recorded Not on file documented as of this encounter Progress Notes Miky Sultana - 01/27/2000 12:00 AM CDTS: The patient sprained her ankle back in October but now has been noting some progressive discomfort in the right foot, as the day goes on. By evening time she has trouble dorsiflexing or plantarflexion because of the discomfort. Discomfort is primarily on the dorsal aspect and arch area. By morning again the foot feels pretty good. She has tried some different shoes but it hasn't seemed to help. O: Examination of the right foot reveals no localized tenderness over the dorsum or plantar aspect of the foot. There is no tenderness over the heel. She has good range of motion at the ankle and throughout the foot and no localized tenderness along the metatarsal. When she stands, she does pronate significantly and has a pes planus configuration to her foot. A/P: Mid foot pain-nonspecific metatarsalgia. It appears that she would benefit from arch supports and was referred to podiatry for consideration of orthotics. In the meantime she will use anti-inflammatory medications and maybe even try an hrei-zup-atkrjcp arch support. cc: documented in this encounter Plan of Treatment Not on filedocumented as of this encounter Visit Diagnoses Diagnosis Enthesopathy of ankle and tarsus, unspec ified documented in this encounter Care Teams Art Gallery Internship Relationship Specialty Start Date End Date Luis Pierce MD PCP - General 05/27/1998 documented as of this encounter
--- OUTSIDE RECORDS SUMMARY | 2022-04-07 07:30 | XMS_ITS | Encounter Summary ---
:1955 Author Organization [facility] Address [address] [place] [address] Care Team Providers Name Role Phone Miky Sultana MD Primary Care Provider Encounter Details Date Type Department Care Team Description 02/25/2005 Notes/Orders [place] [facility] Alisha Kimball, URINARY FREQUENCY; Practice ELEV BL PRES W/O HYPERTN [address] [place] [address] [place], [place] [id number] Social History Tobacco Use Types Packs/Day Years Used Date Smoking Tobacco: Never Alcohol Use Standard Drinks/Week Comments Not Asked 0 (1 standard drink = 0.6 oz pure alcoho l) Sex Assigned at Date Recorded Not on file documented as of this encounter Plan of Treatment Not on filedocumented as of this encounter Procedures Procedure Name Priority Date/Time Associated Comments Diagnosis CREATININE / GFR Routine 02/25/2005 2:[address] W/O R esults for this CDT Hypertn procedure are i n the results section. COMPLETE BLOOD Routine 02/25/2005 2:35 [address] Pres W/O Res ults for this COUNT-NO DIFF CDT Hypertn procedure are in the results section. ANION GAP (CALC.) Routine 02/25/2005 2:35 PM Resu lts for this CDT procedure are i n the results section. CO2 (CARBON DIOXIDE) Routine 02/25/2005 2:35 [address] Pres W /O Results for this CDT Hypertn procedure are i n the results section. ALT (SGPT) Routine 02/25/2005 2:35 [address] Pres W/O Resul ts for this CDT Hypertn procedure are i n the results section. AST Routine 02/25/2005 2:35 PM [address] Pres W/O Resul ts for this CDT Hypertn procedure are i n the results section. SODIUM Routine 02/25/2005 2:35 [address] Pres W/O Resul ts for this CDT Hypertn procedure are i n the results section. POTASSIUM Routine 02/25/2005 2:35 [address] Pres W/O Resul ts for this CDT Hypertn procedure are i n the results section. GLUCOSE Routine 02/25/2005 2:35 [address] Pres W/O Resul ts for this CDT Hypertn procedure are i n the results section. CHLORIDE (CL) Routine 02/25/2005 2:35 [address] Pres W/O Resu lts for this CDT Hypertn procedure are i n the results section. CALCIUM Routine 02/25/2005 2:35 [address] Pres W/O Resul ts for this CDT Hypertn procedure are i n the results section. BUN Routine 02/25/2005 2:35 [address] Pres W/O Resul ts for this CDT Hypertn procedure are i n the results section. URINE CULTURE IF Routine 02/25/2005 1:40 PM Urinary Frequency Results for this CDT procedure are i n the results section. UA MICRO IF Routine 02/25/2005 1:40 PM Urinary Frequency Resu lts for this CDT procedure are i n the results section. documented in this encounter Results ANION GAP (CALC.) (02/25/2005 2:35 PM CDT) athologist Signature Anion Gap 8 7 - 17 [facility] (calc.) mmol/L Specimen Anatomical Collection Method Collection Time Receive d Time (Source) Location / / Volume Laterality 02/25/2005 2:35 PM 5 2:36 CDT PM CDT Alisha Kimball MD LAB_1 Performing Organization Address City/State/ZIP Code Phon e Number [facility] [phone] [facility] [address] [address] HEMOGRAM/PLTS (02/25/2005 2:35 PM CDT) athologist Signature WBC 8.5 4.0 - 11.0 [facility] k/ul RBC 4.58 4.0 - 5.2 [facility] M/ul Hemoglobin 13.9 12.0 - 16.0 [facility] g/dl HCT 40.0 36.0 - 46.0 [facility] % MCV 87.1 80 - 100 fl [facility] MCH 30.3 26 - 34 pg [facility] MCHC 34.8 32 - 36 % [facility] RDW 13.1 11.5 - 14.5 [facility] % Platelets 286 150 - 450 [facility] k/ul Specimen Anatomical Collection Method Collection Time Receive d Time (Source) Location / / Volume Laterality 02/25/2005 2:35 PM 5 2:36 CDT PM CDT Alisha Kimball MD LAB_1 Performing Organization Address [facility] Phon e Number [id number] [phone] [address] SODIUM (02/25/2005 2:35 PM CDT) athologist Signature Sodium 140 135 - 145 [facility] mmol/L Specimen Anatomical Collection Method Collection Time Receive d Time (Source) Location / / Volume Laterality 02/25/2005 2:35 PM 5 2:36 CDT PM CDT Alisha Kimball MD LAB_1 Performing Organization Address [facility] Phon e Number [employer] [phone] [address] POTASSIUM (02/25/2005 2:35 PM CDT) athologist Signature Potassium 4.2 3.5 - 5.3 [facility] mmol/L Specimen Anatomical Collection Method Collection Time Receive d Time (Source) Location / / Volume Laterality 02/25/2005 2:35 PM 5 2:36 CDT PM CDT Alisha Kimball MD LAB_1 Performing Organization Address [facility]/ZIP Code Phon e Number [employer] [phone] [facility] [address] [place] [phone] GLUCOSE - RANDOM < 8HR FASTING (V77.1) (02/25/2005 2:35 PM CDT) athologist Signature Glucose 111 65 - 115 [facility] mg/dl Hours Fasting 2 hours [facility] Specimen Anatomical Collection Method Collection Time Receive d Time (Source) Location / / Volume Laterality 02/25/2005 2:35 PM 5 2:36 CDT PM CDT Alisha Kimball MD LAB_1 Performing Organization Address City/[facility]/ZIP Code Phon e Number [employer] [phone] [facility] [address] [place] [phone] CO2 (02/25/2005 2:35 PM CDT) athologist Signature CO2 28 22 - 31 [facility] mmol/L Specimen Anatomical Collection Method Collection Time Receive d Time (Source) Location / / Volume Laterality 02/25/2005 2:35 PM 5 2:36 CDT PM CDT Alisha Kimball MD LAB_1 Performing Organization Address City/[facility]/ZIP Code Phon e Number [facility] [phone] [facility] [address] [place] [phone] CREATININE / GFR (02/25/2005 2:35 PM CDT) [...] Organization Address City/State/ZIP Code Phon e Number [facility] [phone] [facility] [address] [place] [phone] CHLORIDE (02/25/2005 2:35 PM CDT) athologist Signature Chloride 104 95 - 105 [facility] mmol/L Specimen Anatomical Collection Method Collection Time Receive d Time (Source) Location / / Volume Laterality 02/25/2005 2:35 PM 5 2:36 CDT PM CDT Alisha Kimball MD LAB_1 Performing Organization Address City/[facility] Code Phon e Number [employer] [phone] [facility] [address] [place] [phone] CALCIUM (02/25/2005 2:35 PM CDT) athologist Signature Calcium 9.5 8.2 - 10.0 [facility] mg/dl Specimen Anatomical Collection Method Collection Time Receive d Time (Source) Location / / Volume Laterality 02/25/2005 2:35 PM 5 2:36 CDT PM CDT Alisha Kimball MD LAB_1 Performing Organization Address City/[facility]/ZIP Code Phon e Number [facility] [phone] [facility] [address] [place] [phone] BUN (02/25/2005 2:35 PM CDT) athologist Signature BUN 17 10 - 26 [facility] mg/dl Specimen Anatomical Collection Method Collection Time Receive d Time (Source) Location / / Volume Laterality 02/25/2005 2:35 PM 5 2:36 CDT PM CDT Alisha Kimball MD LAB_1 Performing Organization Address City/[facility]/ZIP Code Phon e Number [employer] [phone] [facility] [address] [place] [phone] ALT (SGPT) (02/25/2005 2:35 PM CDT) athologist Signature ALT (SGPT) 34 0 - 55 U/L [facility] Specimen Anatomical Collection Method Collection Time Receive d Time (Source) Location / / Volume Laterality 02/25/2005 2:35 PM 5 2:36 CDT PM CDT Alisha Kimball MD LAB_1 Performing Organization Address [facility] Phon e Number [facility] [employer] [phone] [facility] [address] [place] [phone] AST (02/25/2005 2:35 PM CDT) athologist Signature AST (SGOT) 16 <45 U/L [facility] Specimen Anatomical Collection Method Collection Time Receive d Time (Source) Location / / Volume Laterality 02/25/2005 2:35 PM 5 2:36 CDT PM CDT Alisha Kimball MD LAB_1 Performing Organization Address [facility] Phon e Number [employer] [phone] [phone] URINE CULTURE IF (02/25/2005 1:40 PM CDT) [facility] gist Method Time Signature Urine Cult If UC Not [facility] Indicated Specimen Anatomical Collection Method Collection Time Receive d Time (Source) Location / / Volume Laterality 02/25/2005 1:40 PM 5 1:41 CDT PM CDT Alisha Kimball MD LAB_1 Performing Organization Address [facility] Phon e Number [employer] [phone] [facility] [address] [place] [phone] UA MICRO IF (02/25/2005 1:40 PM CDT) [facility] gist Method Time Signature Appr Yellow [...] Organization Address City/State/ZIP Code Phon e Number [facility] [phone] [facility] [address] [phone] documented in this encounter Visit Diagnoses Diagnosis Urinary frequency Elevated blood pressure reading without diagnosis of hypertension documented in this encounter Care Teams Mission Coordinator Relationship Specialty Start Date End Date Miky Sultana MD PCP - General 09/21/01 07/07/05 [address] [place] [place] [address] documented as of this encounter
--- OUTSIDE RECORDS SUMMARY | 2022-04-07 07:30 | XMS_ITS | Encounter Summary ---
:1955 Author Organization [facility] Address [address] [place] [address] Care Team Providers Name Role Phone Luis Pierce MD Primary Care Provider Unavailable Encounter Details Date Type Department Care Team Description 12/12/1998 Office Visit Luis Lozano MD [address] [place] [address] (Wo rk) Social History Tobacco Use Types Packs/Day Years Used Date Smoking Tobacco: Never Assessed Sex Assigned at Date Recorded Not on file documented as of this encounter Progress Notes Luis Lozano - 12/12/1998 12:00 AM CDTS. A [age] year old who comes in with probably about ten days of sort of urgent and frequent urination, but in the past forty-eight hours this became significantly acute, feeling more urge, and now some burning of initiation of the stream, a sense of sort of dribbling and poor emptying and certainly a frequency of urination. She doubts that she has had fevers or chills. She does not have any backache. This is about her third episode after having a bladder repair and a hysterectomy in August of this year. She is concerned that this might become a pattern. She said that the bladder repair worked nicely and it did take care of her stress incontinence. She had what sounds like Macrobid on one occasion which sort of helped. She had Cipro about 1 month ago even though her urinalysis was essentially negative and she was advised not to take the medicine. Some number of days later she became miserable and it used it and it worked rather dramatically. This is important to note, because her urinalysis now tonight is negative, that is O-2 WBC's, and negative leukocyte Estrace and negative Nitrites. O. Examination shows a lady who looks well. Has a temperature of 98.6, Pulse 80, Blood Pressure is 160/90. No CVA tenderness. No bladder tenderness. A. Urinary Tract Infection, Suspected. P. Patient will be given Cipro 250 mg 1 bid 14 only. I will be culturing the urine. I have told her to make careful notations of how she responds to the Cipro and finally consider voiding after intercourse and possibly consideration should be given to even prophylactic treatment if this is effective. IN SUMMARY; URINARY TRACT INFECTION cc: documented in this encounter Plan of Treatment Not on filedocumented as of this encounter Visit Diagnoses Not on filedocumented in this encounter Care Teams It Corporate Recruiter Relationship Specialty Start Date End Date Luis Pierce MD PCP - General 05/27/1998 documented as of this encounter
--- OUTSIDE RECORDS SUMMARY | 2022-04-07 07:30 | XMS_ITS | Encounter Summary ---
:1955 Author Organization [facility] Address [address] [address] Care Team Providers Name Role Phone Luis Pierce MD Primary Care Provider Unavailable Encounter Details Date Type Department Care Team Description 01/17/2001 Office Visit [facility] Miky Sultana MD INT [facility] [address] [facility] NOS [address] [place] [address] [place] [address] [phone] Social History Tobacco Use Types Packs/Day Years Used Date Smoking Tobacco: Never Assessed Sex Assigned at Date Recorded Not on file documented as of this encounter Progress Notes Miky Sultana - 01/17/2001 12:00 AM CDTPROBLEM: Knee pain SUBJECTIVE: Patient states that she fell on her right knee back in September. She's had pain in the knee since then, and now has been noting intermittent swelling as well as pain going up and down stairs. The pain is keeping her from doing any kneeling or any active exercise. It feels weak, like it's going to give out on her. She had no prior history of problems with the knee. OBJECTIVE: Weight is 185 pounds. Blood pressure is 150/96; pulse, 84 and regular. On recheck, her blood pressure was 148/86. Examination of the knee reveals no significant effusion. Collateral ligaments are stable and nontender. Drawer signs and Tee test are negative. Mik's test is questionably positive to the medial compartment. There's no pain with compression of the patella. ASSESSMENT: Possible internal derangement, right knee. PLAN: Patient was referred for a magnetic resonance imaging scan. If significant cartilage tear or other surgical lesion is present, she'll be referred to Orthopedics. Otherwise, we will consider an injection or physical therapy. IN SUMMARY: Possible internal derangement, right knee. cc: documented in this encounter Plan of Treatment Not on filedocumented as of this encounter Visit Diagnoses Diagnosis Unspecified internal derangement of knee documented in this encounter Care Teams Roadmaster Relationship Specialty Start Date End Date Luis Pierce MD PCP - General 05/27/1998 documented as of this encounter
--- OUTSIDE RECORDS SUMMARY | 2022-04-07 07:30 | XMS_ITS | Encounter Summary ---
:1955 Author Organization [facility] Address [address], [place] [address] Care Team Providers Name Role Phone Luis Pierce MD Primary Care Provider Unavailable Encounter Details Date Type Department Care Team Description 08/09/2001 Orders Only [facility] Miky Salinas MD [address] [place] [address] [place] [id number] (Wo rk) Social History Tobacco Use Types Packs/Day Years Used Date Smoking Tobacco: Never Assessed Sex Assigned at Date Recorded Not on file documented as of this encounter Plan of Treatment Not on filedocumented as of this encounter Visit Diagnoses Not on filedocumented in this encounter Care Teams Light Rail Transit Operator Relationship Specialty Start Date End Date Luis Pierce MD PCP - General 05/27/1998 documented as of this encounter
--- OUTSIDE RECORDS SUMMARY | 2022-04-07 07:30 | XMS_ITS | Encounter Summary ---
:1955 Author Organization [facility] Address [address] [place] [address] Care Team Providers Name Role Phone Luis Pierce MD Primary Care Provider Unavailable Encounter Details Date Type Department Care Team Description 08/18/2001 Orders Only [facility] Hiram Romero MD [address] [place] [address] [place] [address] [phone] (Wo rk) Social History Tobacco Use Types Packs/Day Years Used Date Smoking Tobacco: Never Assessed Sex Assigned at Date Recorded Not on file documented as of this encounter Plan of Treatment Not on filedocumented as of this encounter Visit Diagnoses Not on filedocumented in this encounter Care Teams Junior High School Teacher Relationship Specialty Start Date End Date Luis Pierce MD PCP - General 05/27/1998 documented as of this encounter
--- OUTSIDE RECORDS SUMMARY | 2022-04-07 07:30 | XMS_ITS | Encounter Summary ---
:1955 Author Organization [facility] Address [address] [place] [address] Care Team Providers Name Role Phone Alisha Kimball MD Primary Care Provider Encounter Details Date Type Department Care Team Description 05/03/2000 Orders Only [facility] [address] [place] [address] Social History Tobacco Use Types Packs/Day Years Used Date Smoking Tobacco: Never Assessed Sex Assigned at Date Recorded Not on file documented as of this encounter Plan of Treatment Not on filedocumented as of this encounter Procedures Procedure Name Priority Date/Time Associated Diagnosis Comme nts URINE CULTURE Routine 05/03/2000 6:54 PM Results for this POLISHER BALANCE SCREWHEAD procedure are i n the results section . documented in this encounter Results URINE CULTURE (MIDSTREAM) (05/03/2000 6:54 PM POLISHER BALANCE SCREWHEAD) [facility] Method Time Signature Specimen Urine [facility] Description Special None [facility] Requests Culture No Growth [facility] After 1 Day Report Status Final [facility] Report Status [id number] [facility] Specimen Anatomical Collection Method Collection Time Receive d Time (Source) Location / / Volume Laterality 05/03/2000 6:54 PM 0 6:55 POLISHER BALANCE SCREWHEAD PM POLISHER BALANCE SCREWHEAD Full Range [facility] LAB_1 Performing Organization Address City/State/ZIP Code Phon e Number [facility] [phone] [facility] [address] [address] documented in this encounter Visit Diagnoses Not on filedocumented in this encounter Care Teams Chief Electrician Relationship Specialty Start Date End Date Alisha Kimball MD PCP - General 07/08/[address] [place] [address] documented as of this encounter
--- OUTSIDE RECORDS SUMMARY | 2022-04-07 07:30 | XMS_ITS | Encounter Summary ---
:1955 Author Organization [facility] Address [address] [address] Care Team Providers Name Role Phone Luis Pierce MD Primary Care Provider Unavailable Encounter Details Date Type Department Care Team Description 11/22/2000 Orders Only [facility] Miky Salinas MD [address] [place] [address] [place] [address] (Wo rk) Social History Tobacco Use Types Packs/Day Years Used Date Smoking Tobacco: Never Assessed Sex Assigned at Date Recorded Not on file documented as of this encounter Plan of Treatment Not on filedocumented as of this encounter Visit Diagnoses Not on filedocumented in this encounter Care Teams Salmon Troll Fisher Relationship Specialty Start Date End Date Luis Pierce MD PCP - General 05/27/1998 documented as of this encounter
--- OUTSIDE RECORDS SUMMARY | 2022-04-07 07:30 | XMS_ITS | Encounter Summary ---
:1955 Author Organization [facility] Address [address] [place] [address] Care Team Providers Name Role Phone Alisha Kimball MD Primary Care Provider Encounter Details Date Type Department Care Team Description 08/02/2001 Orders Only [facility] [address] [place], [place] [address] Social History Tobacco Use Types Packs/Day Years Used Date Smoking Tobacco: Never Assessed Sex Assigned at Date Recorded Not on file documented as of this encounter Plan of Treatment Not on filedocumented as of this encounter Procedures Procedure Name Priority Date/Time Associated Diagnosis Comme nts STREP GRP A, RAPID Waiting 08/02/2001 6:56 PM Res ults for this SCREEN CELL INSPECTOR procedure are i n the results section. documented in this encounter Results RAPID, GPA STREP SCREEN (WAITI (08/02/2001 6:56 PM CELL INSPECTOR) [facility] gist Method Time Signature Patient Home [id number] [employer] Phone # Patient Work [id number] [employer] Phone # Grp A Rapid Negative [facility] Screen Grp A Culture Negative [facility] Final Specimen Anatomical Collection Method Collection Time Receive d Time (Source) Location / / Volume Laterality 08/02/2001 6:56 PM 2 6:57 CELL INSPECTOR PM CELL INSPECTOR Full Range [facility] LAB_1 Performing Organization Address City/State/ZIP Code Phon e Number [facility] [phone] [employer] [address] [address] documented in this encounter Visit Diagnoses Not on filedocumented in this encounter Care Teams Linecasting Machine Keyboard Operator Relationship Specialty Start Date End Date Alisha Kimball MD PCP - General 07/08/05 [address] [place] [address] documented as of this encounter
--- OUTSIDE RECORDS SUMMARY | 2022-04-07 07:30 | XMS_ITS | Encounter Summary ---
:1955 Author Organization [facility] Address [address] [place] [address] Care Team Providers Name Role Phone Luis Pierce MD Primary Care Provider Unavailable Reason for Visit Reason Comments BACK PAIN VIA INTERFACE Encounter Details Date Type Department Care Team Description 05/03/2000 Orders Only [facility] ury LOW BACK PAIN(ACUTE)<6 WEEKS ; [address] [place] [address] Social History Tobacco Use Types Packs/Day Years Used Date Smoking Tobacco: Never Assessed Sex Assigned at Date Recorded Not on file documented as of this encounter Progress Notes Luis Lozano - 05/03/2000 12:00 AM CSTS: This is a 45 year-old lady who comes in with a history of back pain. This discomfort has been present for four weeks with an insidious onset and has localized pretty much into the right side of her back. She puts her hand pretty much over the sacroiliac area and says that it involves her upper sacrum, her upper part of her buttock area rather and swings around and comes somewhat upward into and towards her anterior abdomen. She feels that it might be in her kidneys but she doesn't really point to her flank area in back. Over the course of this time she apparently just more or less put up with this condition and hasn't been too concerned. Hasn't been too uncomfortable. She has not had a history of back trouble in her life. Now for the past 3 days, 2 to 3 days, she has had a significant acceleration of this pain. She describes it as pretty constant but significantly worse in the morning. She had difficulty getting out of bed for example. She wouldn't really call it stiffness but apparently was just pretty nasty and uncomfortable. Today she had difficulty getting up to go to work and was two hours late. She had some sense of nausea when some of the pain became severe. She noticed one situation that after urinating she felt that she had slight relief. This patient has no pain radiating down her leg at all. O: On examination she moves about relatively easily from chair to examining table. She does not seem to be particularly stiff and in fact she claims that she is feeling better this evening then she was earlier in the day. Her temperature is 97.7, pulse 80, respirations 16, blood pressure 128/82. Examination of heart and lungs is normal. Abdomen is unremarkable. No CVA tenderness. She has mild or almost no tenderness to percussion over the lumbar spine. She is mildly tender over the sacroiliac to fairly aggressive pressure and percussion but not too much different then the opposite side. There is really no sensation of soreness when I palpate around the buttock area, around the lateral hip. Manipulation of the hip itself is perfectly normal. No tenderness or pain related to moving her hip in the socket. She has negative leg raising bilaterally. Her range of motion is excellent. She can flex, although she does get slight aggravation of the pain by flexion. She can hyperextend again with a little bit of discomfort. I did not do a rectal or a pelvic examination. I did send her over for an x-ray of the lumbosacral spine because it seemed to be a very atypical case. I also did a sed rate which is 12. On the x-ray of her back, I am calling this a normal film but there is a suggestion that she has constipation. We talked about that at some length. She has been constipated in the past. She in fact has laxatives on hand but she claims that she has had what she considers normal stooling recently, including today. A: Atypical back pain. P: I will await the reading of the radiologist and also if she would like to, she can take a laxative this evening and see if she has any results. She can certainly push her Motrin up to 600 mg or 800 mg q.i.d. until we try to make a more firm diagnosis. Her sed rate is 12 as mentioned. If she continues to have this discomfort, I guess she will need further evaluation such as a pelvic examination, maybe consultation but at this point I don't have specific explanation for her pain unless she is jr enough to have a clean out and it turns out to be a constipation problem. ADDENDUM: She had a urinalysis that was negative and normal. IN SUMMARY: ATYPICAL BACK PAIN cc: ICAL SERVICES MANAGER documented in this encounter Plan of Treatment Not on filedocumented as of this encounter Visit Diagnoses Diagnosis Lumbago Laboratory examination documented in this encounter Care Teams Ui Developer With Angular Js Relationship Specialty Start Date End Date Luis Pierce MD PCP - General 05/27/1998 documented as of this encounter
--- OUTSIDE RECORDS SUMMARY | 2022-04-07 07:30 | XMS_ITS | Encounter Summary ---
:1955 Author Organization [facility] Address [address] [place] [address] Care Team Providers Name Role Phone Alisha Kimball MD Primary Care Provider Encounter Details Date Type Department Care Team Description 08/27/1999 Orders Only Miky Sultana MD [address] [facility] [place] [address] (Wo rk) Social History Tobacco Use Types Packs/Day Years Used Date Smoking Tobacco: Never Assessed Sex Assigned at Date Recorded Not on file documented as of this encounter Plan of Treatment Not on filedocumented as of this encounter Visit Diagnoses Not on filedocumented in this encounter Care Teams Silver Designer Relationship Specialty Start Date End Date Alisha Kimball MD PCP - General 07/08/05 [address] [place] [id number] documented as of this encounter
--- OUTSIDE RECORDS SUMMARY | 2022-04-07 07:30 | XMS_ITS | Encounter Summary ---
:1955 Author Organization [facility] Address [address] [place] [address] Care Team Providers Name Role Phone Alisha Kimball MD Primary Care Provider Encounter Details Date Type Department Care Team Description 05/03/2000 Orders Only [facility] [address] [place], [place] [phone] Social History Tobacco Use Types Packs/Day Years Used Date Smoking Tobacco: Never Assessed Sex Assigned at Date Recorded Not on file documented as of this encounter Plan of Treatment Not on filedocumented as of this encounter Procedures Procedure Name Priority Date/Time Associated Diagnosis Comme nts ACCUCHECK GLU Waiting 05/03/2000 6:54 PM Results for this RANDOM <8HR FAST TIEING MACHINE OPERATOR procedure a re in (WAITING) the results section. UA WITH MICRO Waiting 05/03/2000 6:54 PM Results for this TIEING MACHINE OPERATOR procedure are i n the results section. ESR Waiting 05/03/2000 6:54 PM Results f or this TIEING MACHINE OPERATOR procedure are i n the results section. documented in this encounter Results ESR (05/03/2000 6:54 PM TIEING MACHINE OPERATOR) P athologist Signature ESR 12 0 - 20 [facility] mm/hr Specimen Anatomical Collection Method Collection Time Receive d Time (Source) Location / / Volume Laterality 05/03/2000 6:54 PM 0 6:55 TIEING MACHINE OPERATOR PM TIEING MACHINE OPERATOR Full Range [facility] LAB_1 Performing Organization Address City/State/ZIP Code Phon e Number [facility] [phone] [employer] [address] [address] UA WITH MICRO (05/03/2000 6:54 PM TIEING MACHINE OPERATOR) Analysis Performed At Patho logist Time Signature Appr Yellow [facility] Appr Clear [facility] Sp Gr 1.005 1.005 - [facility] 1.030 Leuk Neg [facility] Nitr Neg [facility] pH 5.0 4.5 - 8.0 [facility] Prot Neg mg/dl [facility] Gluc Neg mg/dl [facility] Ket Neg mg/dl [facility] Urob 0.2 0.2 - 1.0 [facility] EU/dl Bili Neg [facility] Blood Neg [facility] RBC'S 0-3 0 - 3 /hpf [facility] WBC'S 0-2 0 - 5 /hpf [facility] Epith, Occ /hpf [facility] Squamous Bact Few [facility] Casts 0 /lpf [facility] Specimen Anatomical Collection Method Collection Time Receive d Time (Source) Location / / Volume Laterality 05/03/2000 6:54 PM 0 6:55 TIEING MACHINE OPERATOR PM TIEING MACHINE OPERATOR Full Range [employer] LAB_1 Performing Organization Address City/[facility] Phon e Number [place] [phone] [facility] [address] [place] [phone] ACCUCHECK GLU RANDOM <8HR FAST WAITING (05/03/2000 6:54 PM TIEING MACHINE OPERATOR) Component Value Ref Test Analysis Performed At Patholo gist Range Method Time Signature Glucose, bG 92 65 - 115 [facility] Strip mg/dl Glucose, bG Semi-quantitative result (bG) may be [employer] [facility] Strip 5-10% lower than quantitative result. Hours Fasting 2 hours [facility] Specimen Anatomical Collection Method Collection Time Receive d Time (Source) Location / / Volume Laterality 05/03/2000 6:54 PM 0 6:55 TIEING MACHINE OPERATOR PM TIEING MACHINE OPERATOR Full Range [employer] LAB_1 Performing Organization Address [facility] Phon e Number [place] [phone] [facility] [address] [place] [phone] documented in this encounter Visit Diagnoses Not on filedocumented in this encounter Care Teams Print Shop Chief Clerk Relationship Specialty Start Date End Date Alisha Kimball MD PCP - General 07/08/[address] [place] [address] documented as of this encounter
--- OUTSIDE RECORDS SUMMARY | 2022-04-07 07:30 | XMS_ITS | Encounter Summary ---
:1955 Author Organization [facility] Address [address] [place] [address] Care Team Providers Name Role Phone Luis Pierce MD Primary Care Provider Unavailable Encounter Details Date Type Department Care Team Description 08/02/2001 Office Visit [facility] [place] [facility]; [address] ACUTE PHARYNGITIS(SORE THROA T); [place] [address] LABORATORY EXAMINATION [phone] Social History Tobacco Use Types Packs/Day Years Used Date Smoking Tobacco: Never Assessed Sex Assigned at Date Recorded Not on file documented as of this encounter Progress Notes Larry Radford - 08/02/2001 12:00 AM CSTSUBJECTIVE: This 46 -year-old female comes in because she noticed yesterday a scratchy throat and then her right ear started to throb a little bit. She really hasn't had any runny nose or cough. She doesn't think it is strep. OBJECTIVE: The patient doesn't look ill. Vital signs: Temperature is 97.2, weight 180 pounds. Physical examination reveals an alert female in no acute distress. HEENT: Tympanic membrane on the right has normal color but may have a little fluid on the inferior aspect in the middle ear. The left tympanic membrane, drum may be bulging slightly also but no erythema. Pharynx is a little erythematous, exudate. Neck was negative. Rapid Strep test is negative. ASSESSMENT: Otalgia, viral. Acute pharyngitis, viral. PLAN: Jdvf-mvy-[id number] decongestant. IN SUMMARY: ACUTE PHARYNGITIS, OTAL[place]IA cc: RING MACHINE OPERATOR documented in this encounter Plan of Treatment Not on filedocumented as of this encounter Visit Diagnoses Diagnosis Otalgia, unspecified Acute pharyngitis Laboratory examination documented in this encounter Care Teams Review Consultant Relationship Specialty Start Date End Date Luis Pierce MD PCP - General 05/27/1998 documented as of this encounter
--- OUTSIDE RECORDS SUMMARY | 2022-04-07 07:30 | XMS_ITS | Encounter Summary ---
:1955 Author Organization [facility] Address [address] [place] [address] Care Team Providers Name Role Phone Alisha Kimball MD Primary Care Provider Encounter Details Date Type Department Care Team Description 12/18/1999 Orders Only [facility] [address] [place], [place] [phone] Social History Tobacco Use Types Packs/Day Years Used Date Smoking Tobacco: Never Assessed Sex Assigned at Date Recorded Not on file documented as of this encounter Plan of Treatment Not on filedocumented as of this encounter Procedures Procedure Name Priority Date/Time Associated Diagnosis Comme nts UA WITH MICRO Waiting 12/18/1999 7:09 PM Results for this CDT procedure are i n the results section . documented in this encounter Results (ABNORMAL) UA WITH MICRO (12/18/1999 7:09 PM CDT) [facility] gist Method Time Signature Appr Pale Yel [facility] Appr Clear [facility] Sp Gr 1.004 (L) 1.005 - [facility] 1.030 Leuk Neg [facility] Nitr Neg [facility] pH 5.0 4.5 - 8.0 [facility] Prot Neg mg/dl [facility] Gluc Neg mg/dl [facility] Ket Neg mg/dl [facility] Urob 0.2 0.2 - 1.0 [facility] EU/dl Bili Neg [facility] Blood Neg [facility] RBC'S 0 0 - 3 [facility] /hpf WBC'S 0-2 0 - 5 [facility] /hpf Epith, Few /hpf [facility] Squamous Bact 0 [facility] Casts 0 /lpf [facility] Other 0 [facility] Specimen Anatomical Collection Method Collection Time Receive d Time (Source) Location / / Volume Laterality 12/18/1999 7:09 PM 0 7:10 CDT PM CDT Im [facility] LAB_1 Performing Organization Address City/State/ZIP Code Phon e Number [facility] [phone] [facility] [address] [address] documented in this encounter Visit Diagnoses Not on filedocumented in this encounter Care Teams Front Office Secretary Relationship Specialty Start Date End Date Alisha Kimball MD PCP - General 07/08/05 [address] [place], [place] [id number] documented as of this encounter
--- OUTSIDE RECORDS SUMMARY | 2022-04-07 07:31 | XMS_ITS | Encounter Summary ---
:1955 Author Organization [facility] Address [address] [place] [address] Care Team Providers Name Role Phone Luis Pierce MD Primary Care Provider Unavailable Encounter Details Date Type Department Care Team Description 09/03/1998 Office Visit [place] [facility] and Regan Pierce rt SURGERY FOLLOW-UP Gynecology MD Cristina [address] [place] [address] Social History Tobacco Use Types Packs/Day Years Used Date Smoking Tobacco: Never Assessed Sex Assigned at Date Recorded Not on file documented as of this encounter Progress Notes Luis Pierce - 09/03/1998 12:00 AM CSTS: Patient is 43 year old who presents two weeks post-op for a postoperative evaluation. She was seen the week prior at which time she has had her superpubic catheter removed. Four stitches were placed at the catheter site to control leaking of urine. Those stitches were removed today. She has had no problems postoperatively, and her urinary symptoms have resolved. O: On examination, the abdomen was supple, nontender, with no masses. The incisions themselves were all healing well. Bimanual examination revealed no masses at the cuff. There was good support of the urethrovesical junction with no appreciable induration. A: Routine postoperative examination. P: Patient will return in four weeks for final postoperative evaluation. cc: ER VULCANIZING MACHINE OPERATOR documented in this encounter Plan of Treatment Not on filedocumented as of this encounter Visit Diagnoses Diagnosis Follow-up examination following surgery documented in this encounter Care Teams Strike Operations Officer Relationship Specialty Start Date End Date Luis Pierce MD PCP - General 05/27/1998 documented as of this encounter
--- OUTSIDE RECORDS SUMMARY | 2022-04-07 07:31 | XMS_ITS | Encounter Summary ---
:1955 Author Organization [facility] Address [address] [place] [address] Care Team Providers Name Role Phone Luis Pierce MD Primary Care Provider Unavailable Encounter Details Date Type Department Care Team Description 09/01/1998 Office Visit Deepthi Ashraf M D NONSPECIF SKIN ERUPT NEC [address] [place], [place] [phone] (Wo rk) Social History Tobacco Use Types Packs/Day Years Used Date Smoking Tobacco: Never Assessed Sex Assigned at Date Recorded Not on file documented as of this encounter Plan of Treatment Not on filedocumented as of this encounter Visit Diagnoses Diagnosis Rash and other nonspecific skin eruption documented in this encounter Care Teams Card Hand Relationship Specialty Start Date End Date Luis Pierce MD PCP - General 05/27/1998 documented as of this encounter
--- OUTSIDE RECORDS SUMMARY | 2022-04-07 07:31 | XMS_ITS | Encounter Summary ---
:1955 [facility] Address [address] [place] [address] Care Team Providers Name Role Phone Alisha Kimball MD Primary Care Provider Encounter Details Date Type Department Care Team Description 12/12/1998 Orders Only So Li MD [address] [place], [place] [address] (Wo rk) Social History Tobacco Use Types Packs/Day Years Used Date Smoking Tobacco: Never Assessed Sex Assigned at Date Recorded Not on file documented as of this encounter Plan of Treatment Not on filedocumented as of this encounter Visit Diagnoses Not on filedocumented in this encounter Care Teams Refinery Operator Polymerization Plant Relationship Specialty Start Date End Date Alisha Kimball MD PCP - General 07/08/[address] [place], [place] [phone] documented as of this encounter
--- OUTSIDE RECORDS SUMMARY | 2022-04-07 07:31 | XMS_ITS | Encounter Summary ---
:1955 Author Organization [facility] Address [address] [place] [address] Care Team Providers Name Role Phone Luis Pierce MD Primary Care Provider Unavailable Encounter Details Date Type Department Care Team Description 09/01/1998 Office Visit Francisco Gupta MD [address] [place], [place] [address] (Wo rk) Social History Tobacco Use Types Packs/Day Years Used Date Smoking Tobacco: Never Assessed Sex Assigned at Date Recorded Not on file documented as of this encounter Progress Notes Francisco Gupta - 09/01/1998 12:00 AM CSTS: This is a 43 -year-old female who has recently had a hysterectomy and bladder repair, and a suprapubic cut which she moved five days ago. Patient reports dysturia but no vomiting, no flank tenderness. O: patient is oriented times 3, no distress. Vital signs are stable. Head, eyes, ears, nose, throat exam unremarkable. No flank tenderness, no suprapubic tenderness. Her urinalysis is positive for 600 white blood cells. A: Uncomplicated urinary tract infection. P: Macrobid, 100 b.i.d. for ten days, and drink plenty of fluids. If signs of pyelonephritis, follow up as needed. cc: ING SCHEDULER documented in this encounter Plan of Treatment Not on filedocumented as of this encounter Visit Diagnoses Not on filedocumented in this encounter Care Teams Global Mobility Specialist Relationship Specialty Start Date End Date Luis Pierce MD PCP - General 05/27/1998 documented as of this encounter
--- OUTSIDE RECORDS SUMMARY | 2022-04-07 07:31 | XMS_ITS | Encounter Summary ---
:1955 Author Organization [facility] Address [address] [place] [address] Care Team Providers Name Role Phone Alisha Kimball MD Primary Care Provider Encounter Details Date Type Department Care Team Description 09/01/1998 Orders Only Deepthi Ashraf Social History Tobacco Use Types Packs/Day Years Used Date Smoking Tobacco: Never Assessed Sex Assigned at Date Recorded Not on file documented as of this encounter Plan of Treatment Not on filedocumented as of this encounter Visit Diagnoses Not on filedocumented in this encounter Care Teams Business Planner Relationship Specialty Start Date End Date Alisha Kimball MD PCP - General 07/08/[address] [place], [place] [phone] documented as of this encounter
--- OUTSIDE RECORDS SUMMARY | 2022-04-07 07:31 | XMS_ITS | Encounter Summary ---
:1955 Author Organization [facility] Address [address] [place] [address] Care Team Providers Name Role Phone Luis Pierce MD Primary Care Provider Unavailable Encounter Details Date Type Department Care Team Description 09/18/1998 Orders Only Francisco Gupta MD [address] [place], [place] [address] (Wo rk) Social History Tobacco Use Types Packs/Day Years Used Date Smoking Tobacco: Never Assessed Sex Assigned at Date Recorded Not on file documented as of this encounter Plan of Treatment Not on filedocumented as of this encounter Procedures Procedure Name Priority Date/Time Associated Diagnosis Comme nts UA WITH MICRO Routine 09/18/1998 4:33 PM Results for this BUSINESS MANAGEMENT CONSULTANT procedure are i n the results section . documented in this encounter Results UA WITH MICRO (09/18/1998 4:33 PM BUSINESS MANAGEMENT CONSULTANT) Analysis Performed At Patho logist Time Signature Appr Yellow [facility] Appr Clear [facility] Sp Gr 1.006 1.005 - [facility] 1.030 Leuk 0 0 [facility] Nitr 0 0 [facility] pH 5.0 4.5 - 8.0 [facility] Prot 0 0 mg/dl [facility] Gluc 0 0 g/dl [facility] Ket 0 0 [facility] Urob 0.1-1 0.1 - 1 [facility] mg/dl Bili 0 0 [facility] Blood 0 0 [facility] RBC'S 0 0 - 3 /hpf [facility] WBC'S 0-2 0 - 5 /hpf [facility] Epith, Occ [facility] Squamous Bact 0 [facility] Casts 0 /lpf [facility] Specimen Anatomical Collection Method Collection Time Receive d Time (Source) Location / / Volume Laterality 09/18/1998 4:33 PM 9 4:34 BUSINESS MANAGEMENT CONSULTANT PM BUSINESS MANAGEMENT CONSULTANT Francisco Gupta MD LAB_1 Performing Organization Address City/State/ZIP Code Phon e Number [facility] [phone] [address] documented in this encounter Visit Diagnoses Not on filedocumented in this encounter Care Teams Box Office Manager Relationship Specialty Start Date End Date Luis Pierce MD PCP - General 05/27/1998 documented as of this encounter
--- OUTSIDE RECORDS SUMMARY | 2022-04-07 07:31 | XMS_ITS | Encounter Summary ---
:1955 Author Organization [facility] Address [address] [place] [address] Care Team Providers Name Role Phone Luis Pierce MD Primary Care Provider Unavailable Encounter Details Date Type Department Care Team Description 09/30/1998 Office Visit [place] [facility] and Regan Pierce rt SURGERY FOLLOW-UP Gynecology MD Cristina [address] [place] [address] Social History Tobacco Use Types Packs/Day Years Used Date Smoking Tobacco: Never Assessed Sex Assigned at Date Recorded Not on file documented as of this encounter Progress Notes Luis Pierce - 09/30/1998 12:00 AM CSTS: The patient is a 43 -year-old who presents for a postoperative examination. Six weeks prior she had undergone a total abdominal hysterectomy with Schwartz's procedure. 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 She also had some genuine urinary stress incontinence. She has done well with the exception of continuing to feel slightly fatigued. She understands that this may in fact be part of the postop routine postoperative healing process. Nonetheless, a hemoglobin will be repeated. She has had no problems with voiding except for simple case of some urgency which resolves spontaneously. Presently she has no discharge or bleeding. O: On examination the abdomen was supple and nontender with the incision sites all healing well. Speculum examination revealed no discharge in the vault with no lesions. The cuff was intact with small fold sign of granulation tissue measuring 2 millimeters in diameter. This was treated with silver nitrate. Bimanual examination revealed no masses at the cough. There were no masses in either adnexa and no tenderness noted. Rectal/vaginal confirms those findings. A: Routine postop examination. P: Patient will follow-up in one year for pap smear or earlier on a as needed basis. cc: ER ROLLER GRINDER documented in this encounter Plan of Treatment Not on filedocumented as of this encounter Visit Diagnoses Diagnosis Follow-up examination following surgery documented in this encounter Care Teams Mother Baby Rn Relationship Specialty Start Date End Date Luis Pierce MD PCP - General 05/27/1998 documented as of this encounter
--- OUTSIDE RECORDS SUMMARY | 2022-04-07 07:31 | XMS_ITS | Encounter Summary ---
:1955 Author Organization [facility] Address [address] [place] [address] Care Team Providers Name Role Phone Luis Pierce MD Primary Care Provider Unavailable Encounter Details Date Type Department Care Team Description 08/30/1998 Office Visit Francisco Gupta MD UTI [address] [place], [place] [address] (Wo rk) Social History Tobacco Use Types Packs/Day Years Used Date Smoking Tobacco: Never Assessed Sex Assigned at Date Recorded Not on file documented as of this encounter Plan of Treatment Not on filedocumented as of this encounter Visit Diagnoses Diagnosis Urinary tract infection, site not specif ied documented in this encounter Care Teams Rail Assembler Relationship Specialty Start Date End Date Luis Pierce MD PCP - General 05/27/1998 documented as of this encounter
--- OUTSIDE RECORDS SUMMARY | 2022-04-07 07:31 | XMS_ITS | Encounter Summary ---
:1955 Author Organization [facility] Address [address] [place] [address] Care Team Providers Name Role Phone Luis Pierce MD Primary Care Provider Unavailable Encounter Details Date Type Department Care Team Description 09/30/1998 Orders Only Luis Pierce MD Social History Tobacco Use Types Packs/Day Years Used Date Smoking Tobacco: Never Assessed Sex Assigned at Date Recorded Not on file documented as of this encounter Plan of Treatment Not on filedocumented as of this encounter Procedures Procedure Name Priority Date/Time Associated Diagnosis Comme nts HEMOGLOBIN, BLOOD Routine 09/30/1998 11:03 AM Res ults for this SENIOR QA ANALYST procedure are i n the results section. documented in this encounter Results (ABNORMAL) HEMOGLOBIN, BLOOD (09/30/1998 11:03 AM SENIOR QA ANALYST) [facility] Method Time Signature Hemoglobin 11.9 (L) 12.0 - [facility] 16.0 g/dl Hemoglobin Result [facility] Checked Specimen Anatomical Collection Method Collection Time Receive d Time (Source) Location / / Volume Laterality 09/30/1998 11:03 09/30/1998 AM SENIOR QA ANALYST 11:04 AM SENIOR QA ANALYST Luis Pierce MD LAB_1 Performing Organization Address City/State/ZIP Code Phon e Number [facility] [phone] [facility] [address] [address] documented in this encounter Visit Diagnoses Not on filedocumented in this encounter Care Teams Herb Doctor Relationship Specialty Start Date End Date Luis Pierce MD PCP - General 05/27/1998 documented as of this encounter
--- OUTSIDE RECORDS SUMMARY | 2022-04-07 07:31 | XMS_ITS | Encounter Summary ---
:1955 Author Organization [facility] Address [address] [place] [address] Care Team Providers Name Role Phone Luis Pierce MD Primary Care Provider Unavailable Reason for Visit Reason Comments UTI VIA INTERFACE Encounter Details Date Type Department Care Team Description 12/12/1998 [facility] [address] [place] [address] Social History Tobacco Use Types Packs/Day Years Used Date Smoking Tobacco: Never Assessed Sex Assigned at Date Recorded Not on file documented as of this encounter Plan of Treatment Not on filedocumented as of this encounter Visit Diagnoses Diagnosis Urinary tract infection, site not specif ied documented in this encounter Care Teams Journal Entry Audit Clerk Relationship Specialty Start Date End Date Luis Pierce MD PCP - General 05/27/1998 documented as of this encounter
--- OUTSIDE RECORDS SUMMARY | 2022-04-07 07:31 | XMS_ITS | Encounter Summary ---
:1955 Author Organization [facility] Address [address] [place] [address] Care Team Providers Name Role Phone Luis Pierce MD Primary Care Provider Unavailable Encounter Details Date Type Department Care Team Description 09/18/1998 Orders Only Francisco Gupta MD [address] [place], [place] [address] (Wo rk) Social History Tobacco Use Types Packs/Day Years Used Date Smoking Tobacco: Never Assessed Sex Assigned at Date Recorded Not on file documented as of this encounter Plan of Treatment Not on filedocumented as of this encounter Procedures Procedure Name Priority Date/Time Associated Diagnosis Comme nts URINE CULTURE Routine 09/18/1998 4:33 PM Results for this BODY SHOP WORKER procedure are i n the results section . documented in this encounter Results URINE CULTURE ([place]) (09/18/1998 4:33 PM BODY SHOP WORKER) [facility] Method Time Signature Specimen Urine [facility] Description Special None [facility] Requests Culture No Growth [facility] After 1 Day Report Status Final [facility] Report Status [id number] [facility] Specimen Anatomical Collection Method Collection Time Receive d Time (Source) Location / / Volume Laterality 09/18/1998 4:33 PM 9 4:34 BODY SHOP WORKER PM BODY SHOP WORKER Francisco Gupta MD LAB_1 Performing Organization Address City/State/ZIP Code Phon e Number [facility] [phone] [facility] [address] [address] documented in this encounter Visit Diagnoses Not on filedocumented in this encounter Care Teams Apparel Patternmaker Relationship Specialty Start Date End Date Luis Pierce MD PCP - General 05/27/1998 documented as of this encounter
--- OUTSIDE RECORDS SUMMARY | 2022-04-07 07:32 | XMS_ITS | Encounter Summary ---
:1955 Author Organization [facility] Address [address] [place] [address] Care Team Providers Name Role Phone Alisha Kimball MD Primary Care Provider Encounter Details Date Type Department Care Team Description 10/06/1994 Orders Only Miky Sultana MD [address] [facility] [address] [place] [address] (Wo rk) Social History Tobacco Use Types Packs/Day Years Used Date Smoking Tobacco: Never Assessed Sex Assigned at Date Recorded Not on file documented as of this encounter Plan of Treatment Not on filedocumented as of this encounter Visit Diagnoses Not on filedocumented in this encounter Care Teams Gas Station Service Attendant Relationship Specialty Start Date End Date Alisha Kimball MD PCP - General 07/08/05 [address] [place] [place] [phone] documented as of this encounter
--- OUTSIDE RECORDS SUMMARY | 2022-04-07 07:32 | XMS_ITS | Encounter Summary ---
:1955 Author Organization [facility] Address [address] [place] [address] Care Team Providers Name Role Phone Miky Sultana MD Primary Care Provider Encounter Details Date Type Department Care Team Description 05/13/1998 Office Visit [place] [facility] GAB Pierce GIAmber EXAMINATION; and Gynecology Luis Evans MD EXCESSIVE MENSTRUATION; [address] [place]; [place] [address] FEMALE STRESS INCONTINENCE [phone] Social History Tobacco Use Types Packs/Day Years Used Date Smoking Tobacco: Never Assessed Sex Assigned at Date Recorded Not on file documented as of this encounter Progress Notes Luis Pierce - 05/13/1998 12:00 AM CSTS: Pt is a 43 y/o Para 3 0 0 4 who presents for routine annual examination. In March she had undergone an endometrial aspirate for menometrorrhagia which showed simple hyperplasia without atypia. Since that time, she continues to have problems with excessive bleeding. This will occur 2-3 weeks out of the month. A more definitive therapy has been requested. Pt presently is not a candidate for OCs because of her blood pressure (130/88 today). Options were discussed and at this point in time, she has asked if possible a simpler definitive procedure like an endometrial ablation. Because of the amount of bleeding, the size of the endometrial cavity, an office hysteroscopy will be performed prior to further decision making. Review of systems revealed no other significant problems other than some urinary stress incontinence that does not appear to have any component of urgency. She is presently scheduled for a mammogram later this week. O: Neck was supple, non tender with no masses or thyromegaly. Lungs were clear to percussion and auscultation. Back showed no CVA tenderness. Cardiovascular exam showed regular rate and rhythm with S1, S2 and no murmurs. Breasts bilaterally were supple, non tender with no masses, erythema or discharge. Nodes were negative. Abdomen was non tender with no masses, hepatosplenomegaly. Pelvic examination revealed normal female genitalia with no lesions. The vaginal vault showed a moderate amount of blood. The cervix was multiparous with menses per os. There was no cervical motion tenderness or lesions noted. Uterus was anteflexed, multiparous in size, non tender with no masses or adnexa in either adnexa. A: Routine annual examination with menometrorrhagia. P: Pt will undergo office hysteroscopy as noted above. Following that, a more definitive procedure will be undertaken. She is presently scheduled for a mammogram. If she were to undergo a hysterectomy, a procedure may be undertaken for her urinary incontinence. cc: UP WORKER documented in this encounter Plan of Treatment Not on filedocumented as of this encounter Visit Diagnoses Diagnosis Gynecological examination Excessive or frequent menstruation Metrorrhagia Female stress incontinence documented in this encounter Care Teams Mortgage Loan Computation Clerk Relationship Specialty Start Date End Date Miky Sultana MD PCP - General 06/17/1996 05/26/1998 [place] [address] documented as of this encounter
--- OUTSIDE RECORDS SUMMARY | 2022-04-07 07:32 | XMS_ITS | Encounter Summary ---
:1955 Author Organization [facility] [facility] Address [address] [address] Care Team Providers Name Role Phone Luis Pierce MD Primary Care Provider Unavailable Encounter Details Date Type Department Care Team Description 11/13/1996 Office Visit Miky Sultana MD [address] [facility] [place] [address] (Wo rk) Social History Tobacco Use Types Packs/Day Years Used Date Smoking Tobacco: Never Assessed Sex Assigned at Date Recorded Not on file documented as of this encounter Progress Notes Miky Sultana - 11/13/1996 12:00 AM CDTS: The pt has been having problems since about 07/07/96 with numbness in her right hand involving the 2nd, 3rd and 4th fingers. 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 She has been using wrist braces and some Ibuprofen and feels that there is a little relief with that. She oftentimes wakes up at night with numbness in her right hand if she doesn't wear her wrist brace. O: Examination of the right wrist and hand reveals full ROM. There is no muscle atrophy present. Sensation is intact. Tinel and Phalen's signs, however, are positive. A: Right carpal tunnel syndrome work related if the pt's history is correct. No permanent disability is anticipated. P: The pt will continue her wrist brace and Ibuprofen for now. We will refer her for an EMG of the right upper extremity and she will follow up in one month. She will be limited at work in that she should wear her wrist brace while working. cc: Miky Sultana - 11/13/1996 12:00 AM CDTS: The pt was seen on 10/17/96 with an exacerbation of right plantar fasciitis. She was advised increased stretching exercises along with Ibuprofen. She states that it is somewhat better, although it still will give her trouble on some occasions. O: Examination of the right foot reveals minimal tenderness at the anteromedial aspect of the heel. A: Right plantar fasciitis improved. P: Pt will continue with her stretching exercises and supportive shoes. She will follow up as needed. Incidental note: The pt has an itchy mole on her right upper arm. It appears to be a small seborrheic keratosis. This was treated with liquid nitrogen x two and she will follow up if that still gives her trouble. cc: documented in this encounter Plan of Treatment Not on filedocumented as of this encounter Visit Diagnoses Not on filedocumented in this encounter Care Teams Sheeter Operator Relationship Specialty Start Date End Date Luis Pierce MD PCP - General 05/27/1998 documented as of this encounter
--- OUTSIDE RECORDS SUMMARY | 2022-04-07 07:32 | XMS_ITS | Encounter Summary ---
:1955 Author Organization [facility] Address [address] [place] [address] Care Team Providers Name Role Phone Luis Pierce MD Primary Care Provider Unavailable Encounter Details Date Type Department Care Team Description 06/07/1995 Office Visit Miky Sultana MD [address] [place] [address] (Wo rk) Social History Tobacco Use Types Packs/Day Years Used Date Smoking Tobacco: Never Assessed Sex Assigned at Date Recorded Not on file documented as of this encounter Progress Notes Miky Sultana MD - 06/07/1995 12:00 AM CSTS: The pt has had an URI for four weeks and now has developed a cough for the past 5-6 days. The cough has become more and more painful, but minimally productive. She does not smoke and has no history of asthma. She denies any SOB. She's had very little nasal congestion. O: ENT exam is negative. Neck: No adenopathy. Chest: Lungs are essentially clear. A: Persistent bronchitis. P: Trimethoprim Sulfa DS one b.i.d. for 10 days along with rest, fluids and humidity. Pt will follow up if there is no improvement within 10 days. cc: RVISOR PACKING documented in this encounter Plan of Treatment Not on filedocumented as of this encounter Visit Diagnoses Not on filedocumented in this encounter Care Teams Nutrient Management Specialist Relationship Specialty Start Date End Date Luis Pierce MD PCP - General 05/27/1998 documented as of this encounter
--- OUTSIDE RECORDS SUMMARY | 2022-04-07 07:32 | XMS_ITS | Encounter Summary ---
:1955 Author Organization [facility] Address [address] [place] [address] Care Team Providers Name Role Phone Luis Pierce MD Primary Care Provider Unavailable Encounter Details Date Type Department Care Team Description 07/16/1998 Orders Only Luis Pierce MD Social History Tobacco Use Types Packs/Day Years Used Date Smoking Tobacco: Never Assessed Sex Assigned at Date Recorded Not on file documented as of this encounter Plan of Treatment Not on filedocumented as of this encounter Procedures Procedure Name Priority Date/Time Associated Diagnosis Comme nts URINE CULTURE Routine 07/16/1998 4:03 PM Results for this SR. DIRECTOR PRODUCT MANAGEMENT procedure are i n the results section . documented in this encounter Results URINE CULTURE ([place]) (07/16/1998 4:03 PM SR. DIRECTOR PRODUCT MANAGEMENT) [facility] Method Time Signature Specimen Urine [facility] Description Cath/Bladder Special None [facility] Requests Culture No Growth [facility] After 2 Days Report Status Final [facility] Report Status [id number] [facility] Specimen Anatomical Collection Method Collection Time Receive d Time (Source) Location / / Volume Laterality 07/16/1998 4:03 PM 9 4:03 SR. DIRECTOR PRODUCT MANAGEMENT PM SR. DIRECTOR PRODUCT MANAGEMENT Luis Pierce MD LAB_1 Performing Organization Address City/State/ZIP Code Phon e Number [facility] [phone] [address] documented in this encounter Visit Diagnoses Not on filedocumented in this encounter Care Teams Machine Featheredger And Reducer Relationship Specialty Start Date End Date Luis Pierce MD PCP - General 05/27/1998 documented as of this encounter
--- OUTSIDE RECORDS SUMMARY | 2022-04-07 07:32 | XMS_ITS | Encounter Summary ---
:1955 Author Organization [facility] Address [address] [address] Care Team Providers Name Role Phone Luis Pierce MD Primary Care Provider Unavailable Encounter Details Date Type Department Care Team Description 05/27/1998 Other Services Luis Pierce MD Social History Tobacco Use Types Packs/Day Years Used Date Smoking Tobacco: Never Assessed Sex Assigned at Date Recorded Not on file documented as of this encounter Plan of Treatment Not on filedocumented as of this encounter Visit Diagnoses Diagnosis Postcoital bleeding documented in this encounter Care Teams General Manager Food Relationship Specialty Start Date End Date Luis Pierce MD PCP - General 05/27/1998 documented as of this encounter
--- OUTSIDE RECORDS SUMMARY | 2022-04-07 07:32 | XMS_ITS | Encounter Summary ---
:1955 Author Organization [facility] Address [address] [place] [address] Care Team Providers Name Role Phone Luis Pierce MD Primary Care Provider Unavailable Encounter Details Date Type Department Care Team Description 08/19/1998 Office Visit [facility] and Regan Pierce rt SURGERY FOLLOW-UP Gynecology MD Cristina [address] [place] [address] Social History Tobacco Use Types Packs/Day Years Used Date Smoking Tobacco: Never Assessed Sex Assigned at Date Recorded Not on file documented as of this encounter Progress Notes Luis Pierce - 08/19/1998 12:00 AM COLOR REPAIRER Pt is a 43-year-old para 3004 who presents with menorrhagia and genuine urinary stress incontinence. She underwent an endometrial aspirate which showed simple hyperplasia without cellular atypia. Because of difficulties in controlling her bleeding, patient has requested definitive treatment. This in conjunction with her stress incontinence. The decision was made for her to undergo a DEWAYNE with Schwartz's procedure. Pt at this time, would like to conserve he ovaries if no other indications were noted for a oophorectomy. The informed consent was obtained. Routine pre-operative instructions were given. The basis workup was essentially unremarkable. Pt has been complaining of a yeast-type vaginitis symptoms for which she will be treated with Diflucan(azole). 150 mg p.o. stat. She has been on Amoxicillin for an otitis which has resolved. Please see pre-operative evaluation for further details. cc: R REPAIRER documented in this encounter Plan of Treatment Not on filedocumented as of this encounter Visit Diagnoses Diagnosis Follow-up examination following surgery documented in this encounter Care Teams Spray Pilot Relationship Specialty Start Date End Date Luis Pierce MD PCP - General 05/27/1998 documented as of this encounter
--- OUTSIDE RECORDS SUMMARY | 2022-04-07 07:32 | XMS_ITS | Encounter Summary ---
:1955 Author Organization [facility] Address [address] [place] [address] Care Team Providers Name Role Phone Alisha Kimball MD Primary Care Provider Encounter Details Date Type Department Care Team Description 08/19/1998 Orders Only Luis Pierce Social History Tobacco Use Types Packs/Day Years Used Date Smoking Tobacco: Never Assessed Sex Assigned at Date Recorded Not on file documented as of this encounter Plan of Treatment Not on filedocumented as of this encounter Visit Diagnoses Not on filedocumented in this encounter Care Teams Information Technology Instructor Relationship Specialty Start Date End Date Alisha Kimball MD PCP - General 07/08/[address] [place], [place] [id number] documented as of this encounter
--- OUTSIDE RECORDS SUMMARY | 2022-04-07 07:32 | XMS_ITS | Encounter Summary ---
:1955 Author Organization [facility] Address [address], [place] [address] Care Team Providers Name Role Phone Luis Pierce MD Primary Care Provider Unavailable Encounter Details Date Type Department Care Team Description 05/15/1994 Office Visit Francisco Albarran MD [address] [place], [place] [address] (Wo rk) Social History Tobacco Use Types Packs/Day Years Used Date Smoking Tobacco: Never Assessed Sex Assigned at Date Recorded Not on file documented as of this encounter Progress Notes Francisco Albarran MD - 05/15/1994 12:00 AM CSTS: 39 y/o female with a sore throat for 1-2 days. She had a strep throat last month. Her noticed that she had some white spots in the back of her throat. O: No nodes. Throat is clear except for some mild redness with a 5-10 mm patch of whitish discoloration on the left side of the soft palate. The tonsils are not visible. Strep test negative. A: Probable aphthous ulcer. P: The pt was reassured and we'll treat symptomatically. cc: RVISOR PHOSPHATIC FERTILIZER documented in this encounter Plan of Treatment Not on filedocumented as of this encounter Visit Diagnoses Not on filedocumented in this encounter Care Teams Manager Pharmaceutical Relationship Specialty Start Date End Date Luis Pierce MD PCP - General 05/27/1998 documented as of this encounter
--- OUTSIDE RECORDS SUMMARY | 2022-04-07 07:32 | XMS_ITS | Encounter Summary ---
:1955 Author Organization [facility] Address [address] [place] [address] Care Team Providers Name Role Phone Alisha Kimball MD Primary Care Provider Encounter Details Date Type Department Care Team Description 10/24/1997 Orders Only Alexis Gross MD Social History Tobacco Use Types Packs/Day Years Used Date Smoking Tobacco: Never Assessed Sex Assigned at Date Recorded Not on file documented as of this encounter Plan of Treatment Not on filedocumented as of this encounter Visit Diagnoses Not on filedocumented in this encounter Care Teams Party Host/Hostess Relationship Specialty Start Date End Date Alisha Kimball MD PCP - General 07/08/[address] [place], [place] [id number] documented as of this encounter
--- OUTSIDE RECORDS SUMMARY | 2022-04-07 07:32 | XMS_ITS | Encounter Summary ---
:1955 Author Organization [facility] Address [address] [address] Care Team Providers Name Role Phone Luis Pierce MD Primary Care Provider Unavailable Encounter Details Date Type Department Care Team Description 01/08/1997 Office Visit Miky Sultana MD [address] [facility] [place] [address] (Wo rk) Social History Tobacco Use Types Packs/Day Years Used Date Smoking Tobacco: Never Assessed Sex Assigned at Date Recorded Not on file documented as of this encounter Progress Notes Miky Sultana - 01/08/1997 12:00 AM CDTS: The pt has been noting pain along with numbness and tingling in the median nerve distribution of the right hand as 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 She also does some keying and both of these activities cause numbness in the hand. She has been using a wrist brace with some improvement and also has used some Ibuprofen. She had an EMG recently and returns to discuss the results. O: Examination of the right hand reveals no muscle atrophy. Phalen's sign is positive. The EMG from 12/25/96 showed changes consistent with carpal tunnel syndrome on the right. A: Persistent carpal tunnel syndrome work related. Extent of permanent disability if any is undetermined. P: Pt declined a surgery referral. She will continue with her wrist braces and Ibuprofen. It does not appear that she needs any other work restrictions other than using the wrist braces at work. She will follow up in two months or sooner if she has increased problems. cc: documented in this encounter Plan of Treatment Not on filedocumented as of this encounter Visit Diagnoses Not on filedocumented in this encounter Care Teams Quality Assurance Supervisor Relationship Specialty Start Date End Date Luis Pierce MD PCP - General 05/27/1998 documented as of this encounter
--- OUTSIDE RECORDS SUMMARY | 2022-04-07 07:32 | XMS_ITS | Encounter Summary ---
:1955 Author Organization [facility] Address [address] [place] [address] Care Team Providers Name Role Phone Luis Pierce MD Primary Care Provider Unavailable Encounter Details Date Type Department Care Team Description 10/17/1996 Office Visit Miky Sultana MD [address] [facility] [place] [address] (Wo rk) Social History Tobacco Use Types Packs/Day Years Used Date Smoking Tobacco: Never Assessed Sex Assigned at Date Recorded Not on file documented as of this encounter Progress Notes Miky Sultana - 10/17/1996 12:00 AM CDT S: The patient complains of persistent pain in the right heel and it especially hurts when she gets up in the morning and she was diagnosed with plantar fasciitis and has a pair of shoe inserts but it does not seem to be helping. O: Blood pressure is 100/82, temperature is 98.1. Examination of the right foot reveals tenderness at the anteromedial aspect of the heel consistent with plantar fasciitis. A: Persistent plantar fasciitis. P: The patient was given our handout and instructed in stretching exercises. She will also try Ibuprofen 800 mg t.i.d. for 2-3 weeks and then follow up at that time for possible steroid injection if there is still no improvement. INCIDENTAL NOTE: The patient had plugged ears and the ears were lavaged with improvement. cc: documented in this encounter Plan of Treatment Not on filedocumented as of this encounter Visit Diagnoses Not on filedocumented in this encounter Care Teams Remnants Cutter Relationship Specialty Start Date End Date Luis Pierce MD PCP - General 05/27/1998 documented as of this encounter
--- OUTSIDE RECORDS SUMMARY | 2022-04-07 07:32 | XMS_ITS | Encounter Summary ---
:1955 Author Organization [facility] Address [address] [place] [address] Care Team Providers Name Role Phone Luis Pierce MD Primary Care Provider Unavailable Encounter Details Date Type Department Care Team Description 07/16/1998 Office Visit [facility] EMILY Pierce MENSTRUATION; and Gynecology Luis Evans MD FEMALE STRESS INCONTINENCE [address] [place] [address] Social History Tobacco Use Types Packs/Day Years Used Date Smoking Tobacco: Never Assessed Sex Assigned at Date Recorded Not on file documented as of this encounter Progress Notes Luis Pierce - 07/16/1998 12:00 AM CSTS: Patient is a 43-year-old Para [address], presently using vasectomy for control. She had been seen previously for menometrorrhagia. She had undergone office hysteroscopy with an endometrial aspirate. She was noted to have some polyps and at the time of the hysteroscopy as well as an aspIRATE showing simple hyperplasia without atypia. Today she prevents for further evaluation of her incontinence. She has a five to ten year history of progressive increasing urinary incontinence for which she looses urine with cough, sneezing, lifting, running and even at times walking. She gives no history of urgency. She will even loose urine with an empty bladder, however, at times feels that she has incomplete emptying of her bladder. She will even on occasions have problems initiating a stream. There is perhaps a menstrual component, i.e. post completion of her menses problems with initiating stream of urine as well as some increased incontinence. Her loss of urine is also intermittent and for the last several days has not been a problem for her. She admits to nocturia two to three times per night. Her fluid intake does not appear to be history excessive and she has only limited intake of caffeine. Her PAST MEDICAL HISTORY: significant for normal spontaneous vaginal delivery x 3, one of which was twin gestations. Her last was her largest weighing only 8 lbs even. There were no obstetrical complications. She gives no other history consistent with hernias or connective tissue disorders. O: The physical examination itself revealed a well estrogenized vaginal vault with no perineal defects. The cervix itself was multiparous, freely mobile with no discharge per os. Bimanual examination revealed a large anterior defect in the mid line extending from the urethral meatus up to the mid portion of the bladder. Only a small cystocele was noted however, large loss of support of the urethra vesicle junction itself was noted. There was good support bilaterally so no paravaginal defect was noted. There was also no apparent rectal defect. Uterus was mildly enlarged, globular with no tenderness. The adnexa bilaterally were unremarkable. rectovaginal examination confirmed those findings with no apparent rectocele noted. A/P: Menorrhagia with urinary stress incontinence. A post void residual today was less than 75 cc. Urine culture was sent and is pending. Options were discussed and it was agreed upon that she would undergo for her apparent genuine urinary stress incontinence, a bailey procedure. Different types of procedures discussed. She also asked for a definitive procedure in regards to her bleeding. Her blood loss is significant in amount that it interferes with daily activities. Patient was given urolog which will be evaluated prior to surgery. Patient has opted for surgery in early to mid September. During this interim she will have some further evaluation, i.e. evaluation of urologs, attempts at bladder training and double voiding techniques. Patient has requested preservation of her ovaries. Risks and benefits of such preservative measures were discussed. This will be further discussed at the time of her outpatient work up. cc: ORICAL INTERPRETER documented in this encounter Plan of Treatment Not on filedocumented as of this encounter Visit Diagnoses Diagnosis Excessive or frequent menstruation Female stress incontinence documented in this encounter Care Teams Instructor Military Science Relationship Specialty Start Date End Date Luis Pierce MD PCP - General 05/27/1998 documented as of this encounter
--- OUTSIDE RECORDS SUMMARY | 2022-04-07 07:32 | XMS_ITS | Encounter Summary ---
:1955 Author Organization [facility] Address [address] [facility] [place] [address] Care Team Providers Name Role Phone Luis Pierce MD Primary Care Provider Unavailable Encounter Details Date Type Department Care Team Description 10/12/1995 Office Visit Miky Sultana MD [address] [facility] [place] [address] (Wo rk) Social History Tobacco Use Types Packs/Day Years Used Date Smoking Tobacco: Never Assessed Sex Assigned at Date Recorded Not on file documented as of this encounter Progress Notes Miky Sultana MD - 10/12/1995 12:00 AM CDTS: The pt comes in for a general PE and pap smear. 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 She's been doing well with the Loestrin for the past year or so, but now has had three episodes of mild vaginal spotting or bleeding in the past month along with some back pain and urinary frequency and slight dysuria. She's concerned that she might have lost a tampon in her vagina. She's had no fever, chills, nausea or vomiting. O: Height is 65-1/4. Weight: 170 lbs. BP: 148/90 initially and 138/88 on recheck. Pulse 60 and regular. HEENT exam is normal. Neck: No adenopathy. Thyroid WNL. Chest: Lungs are clear. Heart: Regular. No murmurs or S3 heard. Breasts: No masses. Abdomen: No tenderness or organomegaly. Extremities: No edema. Pulse is WNL. Neurologic exam is intact. Pelvic exam reveals normal external genitalia. The vagina is actually clear. Cervix is normal. Uterus is small and non tender. No adnexal masses are present and no tenderness is present. Rectovaginal exam is confirmatory. CBC is normal. UA is pending. A: (1) Good general health. (2) Persistent menstrual disorder. (3) R/O UTI. P: If there is evidence of infection on her UA, we will treat that. Otherwise, she will see how things go over the next month, and if she continues to have menstrual irregularities, she will return. I'll also check a mammogram along with her pap smear. cc: documented in this encounter Plan of Treatment Not on filedocumented as of this encounter Visit Diagnoses Not on filedocumented in this encounter Care Teams Seismic Plotter Relationship Specialty Start Date End Date Luis Pierce MD PCP - General 05/27/1998 documented as of this encounter
--- OUTSIDE RECORDS SUMMARY | 2022-04-07 07:32 | XMS_ITS | Encounter Summary ---
:1955 Author Organization [facility] Address [address], [place] [address] Care Team Providers Name Role Phone Luis Pierce MD Primary Care Provider Unavailable Encounter Details Date Type Department Care Team Description 08/22/1998 Other Services Dar Haas MD [address] [facility] [address] [address] (Wo rk) Social History Tobacco Use Types Packs/Day Years Used Date Smoking Tobacco: Never Assessed Sex Assigned at Date Recorded Not on file documented as of this encounter Plan of Treatment Not on filedocumented as of this encounter Visit Diagnoses Diagnosis Excessive or frequent menstruation documented in this encounter Care Teams Diesel Truck Technician Relationship Specialty Start Date End Date Luis Pierce MD PCP - General 05/27/1998 documented as of this encounter
--- OUTSIDE RECORDS SUMMARY | 2022-04-07 07:32 | XMS_ITS | Encounter Summary ---
:1955 Author Organization [facility] Address [address] [place] [address] Care Team Providers Name Role Phone Alisha Kimball MD Primary Care Provider Encounter Details Date Type Department Care Team Description 10/26/1994 Orders Only Miky Sultana MD [address] [facility] [place] [address] (Wo rk) Social History Tobacco Use Types Packs/Day Years Used Date Smoking Tobacco: Never Assessed Sex Assigned at Date Recorded Not on file documented as of this encounter Plan of Treatment Not on filedocumented as of this encounter Visit Diagnoses Not on filedocumented in this encounter Care Teams Rag Cutting Machine Feeder Relationship Specialty Start Date End Date Alisha Kimball MD PCP - General 07/08/05 [address], [place] [id number] documented as of this encounter
--- OUTSIDE RECORDS SUMMARY | 2022-04-07 07:32 | XMS_ITS | Encounter Summary ---
:1955 Author Organization [facility] Address [address] [place] [address] Care Team Providers Name Role Phone Luis Pierce MD Primary Care Provider Unavailable Encounter Details Date Type Department Care Team Description 06/10/1995 Office Visit Miky Sultana MD [address] [place] [address] (Wo rk) Social History Tobacco Use Types Packs/Day Years Used Date Smoking Tobacco: Never Assessed Sex Assigned at Date Recorded Not on file documented as of this encounter Progress Notes Miky Sultana MD - 06/10/1995 12:00 AM CSTS: The patient was seen on 06-07-95 and diagnosed with persistent bronchitis and treated with Trimethoprim Sulfa. She developed allergic reaction earlier this week with rash and itching and presents today because she has been taking Benadryl and has not seemed to adequately control the itching or rash. O: Examination reveals a rather fine erythematous slightly raised blanching rash on the upper torso and neck. A: Allergic reaction to Trimethoprim Sulfa. P: The patient was given Hydroxizine 25-50 mg as often as QID for the itching and expect it to resolve over the next 2-3 days. She will follow up as needed. cc: EHOLDER MANAGER documented in this encounter Plan of Treatment Not on filedocumented as of this encounter Visit Diagnoses Not on filedocumented in this encounter Care Teams Title I Director Relationship Specialty Start Date End Date Luis Pierce MD PCP - General 05/27/1998 documented as of this encounter
--- OUTSIDE RECORDS SUMMARY | 2022-04-07 07:32 | XMS_ITS | Encounter Summary ---
:1955 Author Organization [facility] Address [address] [place] [address] Care Team Providers Name Role Phone Miky Sultana MD Primary Care Provider Encounter Details Date Type Department Care Team Description 03/25/1998 Orders Only Social History Tobacco Use Types Packs/Day Years Used Date Smoking Tobacco: Never Assessed Sex Assigned at Date Recorded Not on file documented as of this encounter Plan of Treatment Not on filedocumented as of this encounter Procedures Procedure Name Priority Date/Time Associated Comments Diagnosis HCG, QUALITATIVE Routine 03/25/1998 12:27 Results for this W/REFLEX QUANT PM CDT procedure are in the results section. documented in this encounter Visit Diagnoses Not on filedocumented in this encounter Care Teams Certified Welding Inspector Relationship Specialty Start Date End Date Miky Sultana MD PCP - General 06/17/1996 05/26/1998 [address] [place] [address] documented as of this encounter
--- OUTSIDE RECORDS SUMMARY | 2022-04-07 07:32 | XMS_ITS | Encounter Summary ---
:1955 Author Organization [facility] Address [address] [place] [address] Care Team Providers Name Role Phone Alisha Kimball MD Primary Care Provider Encounter Details Date Type Department Care Team Description 06/10/1995 Orders Only Miky Sultana MD [address] [facility] [place] [address] (Wo rk) Social History Tobacco Use Types Packs/Day Years Used Date Smoking Tobacco: Never Assessed Sex Assigned at Date Recorded Not on file documented as of this encounter Plan of Treatment Not on filedocumented as of this encounter Visit Diagnoses Not on filedocumented in this encounter Care Teams Collections Clerk Relationship Specialty Start Date End Date Alisha Kimball MD PCP - General 07/08/05 [address], [place] [id number] documented as of this encounter
--- OUTSIDE RECORDS SUMMARY | 2022-04-07 07:32 | XMS_ITS | Encounter Summary ---
:1955 Author Organization [facility] Address [address] [place] [address] Care Team Providers Name Role Phone Luis Pierce MD Primary Care Provider Unavailable Encounter Details Date Type Department Care Team Description 08/22/1998 Other Services Indra Willams MD [facility] [address] Social History Tobacco Use Types Packs/Day Years Used Date Smoking Tobacco: Never Assessed Sex Assigned at Date Recorded Not on file documented as of this encounter Plan of Treatment Not on filedocumented as of this encounter Visit Diagnoses Diagnosis Excessive or frequent menstruation Dysplasia of cervix (uteri) Cervicitis and endocervicitis documented in this encounter Care Teams Marionette Performer Relationship Specialty Start Date End Date Luis Pierce MD PCP - General 05/27/1998 documented as of this encounter
--- OUTSIDE RECORDS SUMMARY | 2022-04-07 07:32 | XMS_ITS | Encounter Summary ---
:1955 Author Organization [facility] Address [address] [place] [address] Care Team Providers Name Role Phone lAisha Kimball MD Primary Care Provider Encounter Details Date Type Department Care Team Description 06/07/1995 Orders Only Miky Sultana MD [address] [facility] [place] [facility] [address] (Wo rk) Social History Tobacco Use Types Packs/Day Years Used Date Smoking Tobacco: Never Assessed Sex Assigned at Date Recorded Not on file documented as of this encounter Plan of Treatment Not on filedocumented as of this encounter Visit Diagnoses Not on filedocumented in this encounter Care Teams Software Systems Analyst Relationship Specialty Start Date End Date Alisha Kimball MD PCP - General 07/08/05 [address] [place], [place] [id number] documented as of this encounter
--- OUTSIDE RECORDS SUMMARY | 2022-04-07 07:32 | XMS_ITS | Encounter Summary ---
:1955 Author Organization [facility] Address [address] [place] [address] Care Team Providers Name Role Phone Luis Pierce MD Primary Care Provider Unavailable Encounter Details Date Type Department Care Team Description 08/27/1998 Office Visit [place] [facility] Luis Evans MD FOLLOW-UP [address] [place] [address] Social History Tobacco Use Types Packs/Day Years Used Date Smoking Tobacco: Never Assessed Sex Assigned at Date Recorded Not on file documented as of this encounter Progress Notes Luis Pierce - 08/27/1998 12:00 AM CSTS: Patient is a 43 -year-old who presents one week status post DEWAYNE RSO with Schwartz procedure. She was discharged to home on post-operative day number four. Today she presents for attempts at removing her catheter. Patient was able to void 225 cc with only a 35 cc post-void residual. O: The suprapubic catheter was subsequently removed as were the anahi. She has some loss of urine from the suprapubic site which was then closed with two mattress sutures of 4/O nylon suture and two simple sutures. The incision otherwise was healing well. Patient has had no problems with fevers, chills, etc. She has had a normal amount of vaginal discharge but otherwise has done well. A: Routine post-operative exam. Wound check. P: Patient will return in one week for suture removal and repeat wound check. cc: ING CLERK documented in this encounter Plan of Treatment Not on filedocumented as of this encounter Visit Diagnoses Diagnosis Routine follow-up documented in this encounter Care Teams Signal Repairer Relationship Specialty Start Date End Date Luis Pierce MD PCP - General 05/27/1998 documented as of this encounter
--- OUTSIDE RECORDS SUMMARY | 2022-04-07 07:32 | XMS_ITS | Encounter Summary ---
:1955 Author Organization [facility] Address [address] [address] Care Team Providers Name Role Phone Luis Pierce MD Primary Care Provider Unavailable Encounter Details Date Type Department Care Team Description 08/17/1998 Office Visit Francisco Gupta MD [address] [place], [place] [address] (Wo rk) Social History Tobacco Use Types Packs/Day Years Used Date Smoking Tobacco: Never Assessed Sex Assigned at Date Recorded Not on file documented as of this encounter Progress Notes Francisco Gupta - 08/17/1998 12:00 AM CSTS: 43-year-old female who has been having some right earache over the last two days with cervical lymph node. Otherwise no cough. No SOB. No pleurisy. No vomiting. No diarrhea. Patient is worried because she is scheduled to have a hysterectomy on August 22. O: Vital signs are stable. The right TM is mildly erythematous and there is white fluid congestion. There is also cervical lymphadenopathy in the right. The pharynx is not congested. The neck is supple and the lungs are clear. The rest of the exam is negative. A: Otitis media with effusion. P: Will go ahead and give her Amoxicillin 500 mg t.i.d. for ten days. Analgesics and decongestants p.r.n. should also help. If not better in the next several days should come back, otherwise follow-up p.r.n. At this point I don't think there is any reason to cancel the hysterectomy. IN SUMMARY: OTITIS MEDIA cc: UTIVE SALES MANAGER documented in this encounter Plan of Treatment Not on filedocumented as of this encounter Visit Diagnoses Not on filedocumented in this encounter Care Teams Chromium Plater Relationship Specialty Start Date End Date Luis Pierce MD PCP - General 05/27/1998 documented as of this encounter
--- OUTSIDE RECORDS SUMMARY | 2022-04-07 07:32 | XMS_ITS | Encounter Summary ---
:1955 Author Organization [facility] Address [address] [place] [address] Care Team Providers Name Role Phone Alisha Kimball MD Primary Care Provider Encounter Details Date Type Department Care Team Description 01/26/1995 Orders Only Miky Sultana MD [address] [facility] [place] [address] (Wo rk) Social History Tobacco Use Types Packs/Day Years Used Date Smoking Tobacco: Never Assessed Sex Assigned at Date Recorded Not on file documented as of this encounter Plan of Treatment Not on filedocumented as of this encounter Visit Diagnoses Not on filedocumented in this encounter Care Teams Protein Chemist Relationship Specialty Start Date End Date Alisha Kimball MD PCP - General 07/08/05 [address], [place] [id number] documented as of this encounter
--- OUTSIDE RECORDS SUMMARY | 2022-04-07 07:32 | XMS_ITS | Encounter Summary ---
:1955 Author Organization [facility] Address [address] [address] Care Team Providers Name Role Phone Luis Pierce MD Primary Care Provider Unavailable Encounter Details Date Type Department Care Team Description 03/12/1997 Office Visit Miky Sultana MD [address] [facility] [place] [address] (Wo rk) Social History Tobacco Use Types Packs/Day Years Used Date Smoking Tobacco: Never Assessed Sex Assigned at Date Recorded Not on file documented as of this encounter Progress Notes Miky Sultana - 03/12/1997 12:00 AM CDTS: The pt has a history of carpal tunnel syndrome associated with work activities including writing and keying. The carpal tunnel syndrome was confirmed on an EMG on 12/25/96. She has been using wrist braces at work along with Ibuprofen as needed and states that the condition has been much improved. O: Examination of the right wrist reveals no obvious muscle atrophy. Strength appears to be normal. Phalen's sign is still positive. A: Right carpal tunnel syndrome symptomatically improved. P: The pt will continue with her present work restrictions which include wearing a wrist brace as needed with work activities. We will continue the restriction for six months, and she will follow up at that time or sooner if problems get worse. cc: documented in this encounter Plan of Treatment Not on filedocumented as of this encounter Visit Diagnoses Not on filedocumented in this encounter Care Teams Carry In Worker Relationship Specialty Start Date End Date Luis Pierce MD PCP - General 05/27/1998 documented as of this encounter
--- OUTSIDE RECORDS SUMMARY | 2022-04-07 07:32 | XMS_ITS | Encounter Summary ---
:1955 Author Organization [facility] Address [address] [place] [address] Care Team Providers Name Role Phone Luis Pierce MD Primary Care Provider Unavailable Encounter Details Date Type Department Care Team Description 10/24/1997 Office Visit Alexis Gross MD Social History Tobacco Use Types Packs/Day Years Used Date Smoking Tobacco: Never Assessed Sex Assigned at Date Recorded Not on file documented as of this encounter Progress Notes Alexis Gross - 10/24/1997 12:00 AM CDTS: The patient is a 22 year old white female who has been ill with a cough for a little greater than three weeks now. It started out with sore throat and fever but that problem resolved. She even had a throat culture on 10/04/97 and that was negative. The cough persists, it is dry and it is starting to wear her out. She denies fevers or chills. No nausea, vomiting or diarrhea. PAST MEDICAL HISTORY: negative. Medications: none. Allergies: Sulfa O: temp 97.1, BP 140/90. General appearance: healthy appearing female. Ears: tympanic membranes are torres. Oropharynx is note red. Neck supple without adenopathy. Lungs clear to auscultation. A: Bronchitis. P: EES 400 mg one po four times a day for ten days, #40. Encouraged her to drink a lot of fluids. use cough syrup and get as much rest a possible. Return to clinic in seven to ten days if not better for recheck. cc: documented in this encounter Plan of Treatment Not on filedocumented as of this encounter Visit Diagnoses Not on filedocumented in this encounter Care Teams Turn Supervisor Relationship Specialty Start Date End Date Luis Pierce MD PCP - General 05/27/1998 documented as of this encounter
--- OUTSIDE RECORDS SUMMARY | 2022-04-07 07:32 | XMS_ITS | Encounter Summary ---
:1955 Author Organization [facility] Address [address] [place] [address] Care Team Providers Name Role Phone Alisha Kimball MD Primary Care Provider Encounter Details Date Type Department Care Team Description 08/17/1998 Orders Only Francisco Gupta Social History Tobacco Use Types Packs/Day Years Used Date Smoking Tobacco: Never Assessed Sex Assigned at Date Recorded Not on file documented as of this encounter Plan of Treatment Not on filedocumented as of this encounter Visit Diagnoses Not on filedocumented in this encounter Care Teams Patient Care Coordinator Relationship Specialty Start Date End Date Alisha Kimball MD PCP - General 07/08/[address] [place], [place] [id number] documented as of this encounter
--- OUTSIDE RECORDS SUMMARY | 2022-04-07 07:32 | XMS_ITS | Encounter Summary ---
:1955 Author Organization [facility] Address [address] [place] [address] Care Team Providers Name Role Phone Luis Pierce MD Primary Care Provider Unavailable Encounter Details Date Type Department Care Team Description 06/01/1994 Office Visit Miky Sultana MD [address] [facility] [place] [address] (Wo rk) Social History Tobacco Use Types Packs/Day Years Used Date Smoking Tobacco: Never Assessed Sex Assigned at Date Recorded Not on file documented as of this encounter Progress Notes Miky Sultana MD - 06/01/1994 12:00 AM CSTS: The pt comes in for a general physical and pap smear. Her only complaint is excessively heavy periods with a lot of discomfort. She complained about it three years ago when she was in for a physical and feels it's gotten much worse since then. She's gotten to the point where she dreads her periods. They are regular but they've increased somewhat in frequency over the past couple of years. They are now every three weeks. PMH is essentially unremarkable. O: PE reveals a WDWN female with essentially normal findings on exam. Breast exam reveals no masses. Pelvic exam reveals normal external genitalia. The vagina is clear. Cervix is normal. Uterus is slightly enlarged but symmetric and non tender. No adnexal masses are present. A: (1) Good general health. (2) Uterine bleeding disorder. P: Will check a CBC, UA, pap smear and mammogram. Follow up will be arranged if there are significant abnormalities. The pt was given Desogen 28 to use per normal instructions to try to settle her periods down. She will follow up in three months or sooner if she has her problems. cc: AL MANAGER documented in this encounter Plan of Treatment Not on filedocumented as of this encounter Visit Diagnoses Not on filedocumented in this encounter Care Teams Sale Professional Digital Marketing Relationship Specialty Start Date End Date Luis Pierce MD PCP - General 05/27/1998 documented as of this encounter
[2022-04-07 10:56] LABS: Chloride* 108 mmol/L (96-114); Sodium* 139 mmol/L (135-149)
[2022-04-07 10:57] LABS: Potassium* 4.8 mmol/L (3.6-5.1)
[2022-04-07 10:59] LABS: Estimated Glomerular Filt Rate 61 ml/min
[2022-04-07 11:00] LABS: Blood Urea Nitrogen* 25 mg/dL (7-30); Calcium* 9.7 mg/dL (8.4-10.6); Carbon Dioxide* 22 mmol/L (20-32); Glucose* 131 mg/dL (60-115)
== END 2022-04-07 09:20 | disposition home or self-care (01) ==
PROVIDERS: PCP Family Medicine; Visit Provider Family Medicine
DX: N17.9 Acute kidney failure, unspecified (principal); I10 Essential (primary) hypertension; E11.9 Type 2 diabetes mellitus without complications; I48.91 Unspecified atrial fibrillation
CPT/HCPCS: 80048; 82043; 82570

== ENCOUNTER 2022-04-13 07:25 | Outpatient (CLI) | payer OTHER, SELFPAY ==
--- OUTSIDE RECORDS SUMMARY | 2022-04-13 07:32 | XMS_ITS | Encounter Summary ---
:1955 Author Organization [facility] Address [address] [place] [address] Care Team Providers Name Role Phone Carroll Avalos MD Primary Care Provider Reason for Referral Medication Prior Authorization (Routine) - Closed Specialty Diagnoses / Procedures Referred By Contact Refer red To Contact Carroll Avalos MD [address] [place] [address] Referral ID Status Reason Start Date Expiration Date Visits Requ ested Visits Authorized [id number] Closed 1 1 ECT ON DELIVERY CLERK Reason for Visit Reason Comments Refill metFORMIN XR (GLUCOPHAGE XR) 500 MG 24 hour release tablet [Pharmacy Med Name: METFORMIN HCL ER 500 MG TABL ET]; atorvastatin (LIPITOR) 10 MG tablet [Pharmacy Med Name: ATORVASTATIN 10 MG TABLET] Encounter Details Date Type Department Care Team Description 08/25/2020 [facility] Carroll Avalos MD Refill (metFORMIN XR [address] [facility] [address] (GLUCOPHAGE XR) 500 [place] [address] [place] [address] 24 hour release tablet [id number] (Wo rk) [Pharmacy Med Name: METFORMIN HCL [...] order. Tesha Cagle RN 08/26/2020, 4:23 PM ECT ON DELIVERY CLERK Interface, Out Surescripts Prov Query - 08/25/2020 [...] mouth daily. (changed but equivalent) Powered by [facility], Reference: [id number], 08/25/2020 11:42:56 AM Luis Eduardo COREY: ARNOLD REFILL RN ([id number]) metFORMIN XR (GLUCOPHAGE XR) 500 MG 24 [...] HBA1C: 7.2 % on 04/11/2020 Powered by [employer], Reference: [id number], 08/25/2020 11:42:56 AM COLLECT ON DELIVERY CLERK, Pool: ARNOLD REFILL CAITLYN ([id number]) ECT ON DELIVERY CLERK Interface, Out InDemand Interpreting Prov Query - 08/25/2020 11:42 AM CST The following lab order(s) may be associated with the Result Note below: COMPLETE BLOOD COUNT-NO DIFF Notes recorded by Lucy Mancuso RN on 04/11/2020 at 10:39 AM CDT Letter sent with results. Lucy Mancuso RN 04/11/2020, 10:39 AM ECT ON DELIVERY CLERK documented in this encounter Plan of Treatment Not on filedocumented as of this encounter Visit Diagnoses Not on filedocumented in this encounter Care Teams Forest Scientist Relationship Specialty Start Date End Date Carroll Avalos MD PCP - General 07/08/05 [address] [place] [address] documented as of this encounter
--- OUTSIDE RECORDS SUMMARY | 2022-04-13 07:32 | XMS_ITS | Encounter Summary ---
:1955 Author Organization [facility] Address [address] [place] [address] Care Team Providers Name Role Phone Alisha Kimball MD Primary Care Provider Encounter Details Date Type Department Care Team Description 08/16/2020 [facility] [address] [place] [address] [address] [place], [place] [address] [phone] Social History Tobacco Use Types Packs/Day Years [...] on filedocumented in this encounter Care Teams Assistant Import Manager Relationship Specialty Start Date End Date Alisha Kimball MD PCP - General 07/08/05 [address] [place] [address] documented as of this encounter
--- OUTSIDE RECORDS SUMMARY | 2022-04-13 07:32 | XMS_ITS | Encounter Summary ---
:1955 Author Organization [facility] Address [address], [place] [address] Care Team Providers Name Role Phone Alisha Kimball MD Primary Care Provider Reason for Visit Reason Comments Dental Hygiene no cc;s Encounter Details Date Type Department Care Team Description 10/08/2020 Office Visit [facility] Dori Mayer De nta Hygiene (no Dentistry [facility] cc;s) [address] [facility] [address] [place] [phone] Social History Tobacco Use Types Packs/Day Years [...] this encounter Patient Instructions Patient InstructionsDori Mayer [facility] - 10/08/2020 9:10 AM CDT [...] collaborating agreement with Jamaal Cleveland DDS (License #:[id number]) PRESENTATION: Oral Hygiene: Fair Plaque: Localized, light [...] facility documented in this encounter Care Teams Behavioral Health Professional Relationship Specialty Start Date End Date Alisha Kimball MD PCP - General 07/08/05 [address] [place] [address] documented as of this encounter
--- OUTSIDE RECORDS SUMMARY | 2022-04-13 07:32 | XMS_ITS | Encounter Summary ---
:1955 Author Organization [facility] Address [address] [address] Care Team Providers Name Role Phone Alisha Kimball MD Primary Care Provider Reason for Visit Reason Comments Dental Hygiene none Encounter Details Date Type Department Care Team Description 02/07/2021 Office Visit [facility] Gen Gonzalez [facility] [address] [place] [address] Dental Hygiene (none) Dentistry [facility], Exam [address] [place] [address] Social History Tobacco Use Types [...] agreement with Josue Kerns DDS (License #: [id number]) CHART REVIEW: Reviewed with patient: Medical history, [...] EXISTING PFM CROWN Routine 07/09/2009 12:00 AM HARD ROCK DRILL OPERATOR documented in this encounter Visit Diagnoses Diagnosis Chronic periodontitis, localized, slight - Primary documented in this encounter Care Teams Forest Worker Relationship Specialty Start Date End Date Alisha Kimball MD PCP - General 07/08/05 [address] [place] [address] documented as of this encounter
--- OUTSIDE RECORDS SUMMARY | 2022-04-13 07:32 | XMS_ITS | Clinical Summary ---
:1955 Author Organization [facility] Address [address] [place] [address] Care Team Providers Name Role Phone Alisha [...] for each transition of care or referral. [employer] Allergies Active Allergy Reactions Severity Noted Date [...] 10:36 AM Heart palpitations 11/05/2014 12/08/2017 CAREPLAN: [facility] 01/23/2013 06/07/2013 Overview: Background: Engaged in Disease Management-Diabetes: Marisol Cruz RN [phone] Diabetes mellitus, type 2 05/14/2010 12/07/2017 Encounters Date Type Specialty Care Team Description 02/24/2022 Office Visit General Dentistry Addie Gonzalez Exam (none); A, [facility] Dental Hygiene [facility], Exam from Last 3 Months Immunizations Name Administration Dates Next Due Flu Vac (3+ yrs) 04/01/2012, 05/01/2011, 04/18/2010 Influenza IIV3 (Trivalent) Fluzone 03/28/2019 Highdose, 65+ Yrs ([id number]) Influenza IIV4 (Quadrivalent) 0.5mL 04/11/2018, 05/19/2017, 04/30/2016, ([id number]) 04/27/2014 Influenza IIV4 (Quadrivalent) Fluad, 04/11/2020 65+ [...] Relation Name Status Comments Father (Age 64) DC Mother (Age 76) ovarian cancer Brother 1 Alive Brother 2 Alive Brother 3 Alive Brother 4 Alive Brother 5 Alive Maternal Grandfather accident Maternal Grandmother DC Paternal Grandfather DC Paternal Grandmother DC Sister Alive Son 1 Alive Son 2 [...] Effective Phone Address T ype Group Dates [facility] [id number] 2017-Pres Commercial [place] DENT[place] MED[place] MEDICARE [id number] 2019-Pres Medi care ent [employer] MEDICARE [id number] 2018-Pres Commercial SUPPLEMENT ent [phone] (Work) Loc [place] Personal/Family Self 1955 [address] (Home) [place], [place] [phone] (Work) Care Teams Memorial Counselor Relationship Specialty Start Date End Date Alisha Kimball MD PCP - General 07/08/05 [address] [place] [address]
--- OUTSIDE RECORDS SUMMARY | 2022-04-13 07:32 | XMS_ITS | Encounter Summary ---
:1955 Author Organization [facility] Address [address], [place] [address] Care Team Providers Name Role Phone Alisha Kimball MD Primary Care Provider Reason for Visit Reason Comments Dental Hygiene none Encounter Details Date Type Department Care Team Description 10/16/2021 Office Visit [facility] Addie Gonzalez ental Hygiene (none) [facility] [address] [address] [phone] (Wo rk) Social History Tobacco Use Types [...] agreement with Josue Kerns DDS (License #: [id number]) CHART REVIEW: Reviewed with patient: Medical history, [...] Primary documented in this encounter Care Teams Associate Store Leader Relationship Specialty Start Date End Date Alisha Kimball MD PCP - General 07/08/05 [address] [place] [address] documented as of this encounter
--- OUTSIDE RECORDS SUMMARY | 2022-04-13 07:32 | XMS_ITS | Encounter Summary ---
:1955 Author Organization [facility] Address [address] [place] [address] Care Team Providers Name Role Phone Alisha Kimball MD Primary Care Provider Reason for Visit Reason Comments Dental Exam none Dental Hygiene Encounter Details Date Type Department Care Team Description 02/24/2022 Office Visit [facility] Gen Gonzalez [facility] [address] [place] [address] Dental Exam (none); Dentistry Yard[facility], Exam Dental Hygiene [address] [place] [address] Social History Tobacco Use Types [...] by the dentist, dental hygienist, or dental commercial real estate assistant. Congratulations on your low risk for [...] agreement with Josue Kerns DDS (License #: [id number]) PROCEDURAL PAUSE: Patient identity verified: Yes Treatment [...] Routine 1 Occurre nces EVALUATION starting 2021 [id number] Dental Procedures Routine 1 Oc currences starting [...] Primary documented in this encounter Care Teams Process Pumper Relationship Specialty Start Date End Date Alisha Kimball MD PCP - General 07/08/05 [address] [place] [address] documented as of this encounter
--- OUTSIDE RECORDS SUMMARY | 2022-04-13 07:32 | XMS_ITS | Encounter Summary ---
:1955 Author Organization [employer] Address [address] [place] [address] Care Team Providers Name Role Phone Alisha Kimball MD Primary Care Provider Reason for Visit Reason Comments Dental Exam none Dental Hygiene Encounter Details Date Type Department Care Team Description 06/12/2021 Office Visit [facility] Gen Gonzalez [facility] [address] [place] [address] Dental Exam (none); Dentistry Yard[facility], Exam Dental Hygiene [address] [place] [address] Social History Tobacco Use Types [...] - - Pulse 61 06/12/2021 9:19 AM FILM CLEANER Temperature - - Respiratory Rate - - [...] next visit! Thank you for choosing [facility]. CLEANER documented in this encounter Progress Notes Jamaal [...] DDS 06/12/2021, 9:45 AM --End of Note-- CLEANER Addie Gonzalez RDH - 06/12/2021 9:20 AM CST HYGIENE PROPHY NOTE COLLABORATIVE AGREEMENT: The patient consents to have charting, radiographs and prophylaxis by the dental hygienist performed with the understanding that this care is not a substitute for an examination by a dentist. These activities were performed under a collaborating agreement with Josue Kerns DDS (License #: [id number]) PROCEDURAL PAUSE: Patient identity verified: Yes Treatment [...] RDH 06/12/2021, 10:00 AM --End of Note-- CLEANER documented in this encounter Plan of Treatment Not on filedocumented as of this encounter Procedures Procedure Name Priority Date/Time Associated Diagnosis Comme nts [id number] Routine 06/12/2021 9:20 AM FILM CLEANER Chronic charlie odontitis, localized, slight PERIODIC ORAL Routine 06/12/2021 9:20 AM FILM CLEANER Chronic periodont itis, EVALUATION localized, slight PROPHYLAXIS-ADULT Routine 06/12/2021 9:20 AM FILM CLEANER Chronic perio dontitis, RECALL localized, slight documented in this encounter Visit Diagnoses Diagnosis Chronic periodontitis, localized, slight - Primary documented in this encounter Care Teams Blood Bank Manager Relationship Specialty Start Date End Date Alisha Kimball MD PCP - General 07/08/05 [address] [place] [address] documented as of this encounter
--- OUTSIDE RECORDS SUMMARY | 2022-04-13 07:32 | XMS_ITS | Encounter Summary ---
:1955 Author Organization [facility] Address [address] [place] [address] Care Team Providers Name Role Phone Alisha Kimball MD Primary Care Provider Reason for Referral Consult/Transfer Care (Routine) - Incomplete Specialty Diagnoses / Procedures Referred By Contact Refer red To Contact Diagnoses CAREPLAN: ANTI-COAGULATION Paroxysmal atrial fibrillation (HRC) Madiha Olivares III, MD [address] [place] [address] Referral ID Status Reason Start Date Expiration Date Visits V isits Requested Authorized [id number] Incomplete 06/14/2020 09/13/2021 1 1 Scheduling Instructions . MODYNAMICIST Reason for Visit Reason Comments Medication Questions Encounter Details Date Type Department Care Team Description 06/14/2020 Telephone [facility] Alisha Kimball MD Medication Questions Practice [address] [facility] [address] [facility] [place] [address] [place] [address] [phone] Social History Tobacco Use Types Packs/Day Years Used Date Smoking Tobacco: Never Smokeless Tobacco: Never Alcohol Use Standard Drinks/Week Comments No 0 (1 standard drink = 0.6 oz pure alcoho l) Sex Assigned at Date Recorded Not on file documented as of this encounter Patient Instructions Patient InstructionsMadiha Olivares III, MD - 06/14/2020 1:12 PM CST MODYNAMICIST documented in this encounter Nursing Notes Addie Gonzalez RDH - 06/12/2021 9:58 AM CST Pt. Requested removal, the patient takes eliquis. Addie Gonzalez RDH 06/12/2021, 9:59 AM MODYNAMICIST Maidha Olivares III, MD - 06/14/2020 5:06 PM CST Order is signed. Madiha Olivares III, MD MODYNAMICIST Juan Hoffman - 06/14/2020 2:16 PM CST Pt called states that she is not starting the warfarin until Jul. For now she needs just 15 days worth of Eliquis sent [facility]. Per pt, please just send 15 days worth of medication, she will do labs when she comes back from [place], thank you MODYNAMICIST Mary De La O - 06/14/2020 1:52 PM CST Patient called back and states that she will make it work and to cancel this request. MODYNAMICIST Mickie Welsh RN - 06/14/2020 1:40 PM CST Gill Box Tender discussed with pt. Pt states she has enough elquist until 07/05/19. Pt will be back in town 2week of July. Pt states she can go Wednesday morning to get labs as she is leaving for [place] on wed06/19/20-07/19/19. Please advise. Mickie Welsh RN 06/14/2020, 1:42 PM MODYNAMICIST Madiha Olivares III, MD - 06/14/2020 1:12 PM CST Will order for warfarin initiation and refer to the coumadin clinic. Needs baseline labs. RN please inform patient.Madiha Olivares III, MD MODYNAMICIST Rocio Garcia - 06/14/2020 10:15 AM CST [...] month, next week Wednesday. Will forward to [facility] - Dr Olivares (Dr Kimball out of clinic) Who prescribed it? Alisha Kimball MD Is it okay to leave a detailed message on your voicemail? Yes For this medication, patient would like it filled at the pharmacy listed in Meds & Orders. [Chemical Tank Worker/Appt Center: Verify the pharmacy patient would like to use for this request is highlighted in blue in Pharmacy Selection under Meds & Orders] Rocio Garcia Please route to: Care Team Pool If this is a Medicaid drug change, please route to: clinic specific Refill spooler operator automatic MODYNAMICIST documented in this encounter Plan of Treatment Scheduled Referrals Name Type Priority Associated Diagnoses Order S chedule HP Anticoagulation Dosing Referral Routine CAREPLAN: Or dered: Order ANTI-COAGULATION 06/14/2020 Paroxysmal atrial fibrillation (HRC) documented as of this encounter Visit Diagnoses Diagnosis CAREPLAN: ANTI-COAGULATION 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
--- OUTSIDE RECORDS SUMMARY | 2022-04-13 07:33 | XMS_ITS | Encounter Summary ---
:1955 Author Organization [facility] Address [address] [place] [address] Care Team Providers Name Role Phone Alisha Kimball MD Primary Care Provider Reason for Visit Reason Comments Routine Eye Exam RAMIN 01/19 . Patient s tates no visual changes or problems. States that she do es use systane for dry eyes. Has some allergies. Using otc re aders. Diabetic Exam, Yearly BS-controlled with oral meds . BS-105 this AM. Last A1C 6.7 11/2018. [id number] Encounter Details Date Type Department Care Team Description 01/24/2019 Office Visit [facility] Eric Keller, OD Diabetes type 2, no ocular involvement ( HRC) (Primary Dx); [address] [place] [address] [place], [place] [phone] Social History Tobacco Use Types Packs/Day Years [...] BS-105 this AM. Last A1C 6.7 11/2018. [id number] Routine Eye Exam Loc Velasco is a [...] Presbyopia documented in this encounter Care Teams Manager Business Information Relationship Specialty Start Date End Date Alisha Kimball MD PCP - General 07/08/05 [address] [place] [address] documented as of this encounter
--- OUTSIDE RECORDS SUMMARY | 2022-04-13 07:33 | XMS_ITS | Encounter Summary ---
:1955 Author Organization [facility] Address [address] [place] [address] Care Team Providers Name Role Phone Carroll Avalos MD Primary Care Provider Reason for Visit Reason Comments Refill atorvastatin (LIPITOR) 10 MG tablet [Pharmacy Med Name: ATORVASTATIN 10 MG TABLET] Encounter Details Date Type Department Care Team Description [facility] Refill (atorvastatin [address] [facility] [address] (LIPITOR) 10 [place] [address] [place] [address] [Pharmacy Med Name: [phone] (Wo rk) ATORVASTATIN 10 MG TABLET]) Social History Tobacco Use Types Packs/Day Years Used Date Smoking Tobacco: Never Smokeless Tobacco: Never Alcohol Use Standard Drinks/Week Comments No 0 (1 standard drink = 0.6 oz pure alcoho l) Sex Assigned at Date Recorded Not on file documented as of this encounter Nursing Notes Interface, Out Ziipascripts Prov Query - 08/16/2019 12:23 PM CST The patient chart could not be locked at 08/16/2019 12:23 PM by [employer] in order to process this refill request. Please try re-routing to attempt to retry processing through [employer]. GER CREDIT Mickie Welsh RN - 08/16/2019 12:21 PM CST Chief Unit Forester discussed with pt. Pt states she needs both metformin and atorvastatin refilled. Pt states she takes 5mg of atorvastatin daily. Pt is going out of town for 2 weeks to [place] but then will schedule follow up with pcp when she returns. Mickie Welsh RN 08/16/2019, 12:23 PM GER CREDIT Meaghan Briggs RN - 08/16/2019 12:00 PM [...] DAY Meaghan Briggs RN 08/16/2019, 12:00 PM GER CREDIT Interface, Out Surescripts Prov Query - 08/15/2019 6:31 PM CST atorvastatin (LIPITOR) 10 MG tablet [Pharmacy Med Name: ATORVASTATIN 10 MG TABLET] Miscellaneous - 12 Month Visit -> Refill x 6 months, qty: 90, refills: 1 (until due for an office visit) Last qualifying visit: 12/12/2018 (in [place] [facility]) Next scheduled visit: None Last ordered by CARROLL AVALOS K: 02/01/2018 (560 days ago) QTY: 90, Refills: 3, Sig: take 1 tablet by mouth every day (unchanged) Powered by [employer], Reference: [id number], 08/15/2019 6:31:46 PM MANAGER CREDIT, Pool: ARNOLD REFILL RN ([id number]) GER CREDIT documented in this encounter Plan of Treatment Not on filedocumented as of this encounter Visit Diagnoses Not on filedocumented in this encounter Care Teams Tennis Professional Relationship Specialty Start Date End Date Carroll Avalos MD PCP - General 07/08/05 [address] [place] [address] documented as of this encounter
--- OUTSIDE RECORDS SUMMARY | 2022-04-13 07:33 | XMS_ITS | Encounter Summary ---
:1955 Author Organization [facility] Address [address] [place] [address] Care Team Providers Name Role Phone Alisha Kimball MD Primary Care Provider Reason for Visit Procedure/Equipment (Routine) - Incomplete Specialty Diagnoses / Procedures Referred By Contact Refer red To Contact Diagnoses Screening for osteoporosis Alisha Kimball MD Procedures DEXA Bone Density Spine/Hip [address] [place] [address] Referral ID Status Reason Start Date Expiration Date Visits V isits Requested Authorized [id number] Incomplete 01/03/2020 04/03/2021 1 1 Encounter Details Date Type Department Care Team Description 02/22/2020 [facility] Alisha Kimball Scre ening for Procedure 401 Bone Density osteoporosis [address] [facility] [address] [place], [place] [phone] Social History Tobacco Use Types Packs/Day Years [...] Volume Narrative 02/22/2020 12:58 PM CDT Indication:Screening Children'S Book Author and Model of Instrument: Drync Demographics Age: 65 y.o. Gender: female Height [...] Alcohol 3units or more per day (on Helmedix):No Currently smoking:No Other pertinent history: Dual-X-ray Absorptiometry [...] Typical threshold to start therapy in [facility] wests is a 10-year risk of hip fracture [...] osteoporosis documented in this encounter Care Teams Hatch Boss Relationship Specialty Start Date End Date Alisha Kimball MD PCP - General 07/08/05 [address] [place] [address] documented as of this encounter
--- OUTSIDE RECORDS SUMMARY | 2022-04-13 07:33 | XMS_ITS | Encounter Summary ---
:1955 Author Organization [facility] Address [address] [place] [address] Care Team Providers Name Role Phone Alisha Kimball MD Primary Care Provider Reason for Visit Reason Onset Date Comments Refill 01/09/2020 Encounter Details Date Type Department Care Team Description 01/09/2020 Refill [facility] Alisha Kimball MD Refill [address] [facility]. [address] [place] [address] [place], [place] [phone] (Wo rk) Social History Tobacco Use Types [...] (HRC) documented in this encounter Care Teams Plateman Relationship Specialty Start Date End Date Alisha Kimball MD PCP - General 07/08/05 [address] [place] [address] documented as of this encounter
--- OUTSIDE RECORDS SUMMARY | 2022-04-13 07:33 | XMS_ITS | Encounter Summary ---
:1955 Author Organization [facility] Address [address] [place] [address] Care Team Providers Name Role Phone Alisha Kimball MD Primary Care Provider Reason for Visit Reason Comments Dental Hygiene none Encounter Details Date Type Department Care Team Description 06/06/2020 Office Visit [facility] Alisha Avila, Yates al Hygiene (none) Dentistry [facility] [id number] [place] [address] [phone] Social History Tobacco Use Types Packs/Day Years Used Date Smoking Tobacco: Never Smokeless Tobacco: Never Alcohol Use Standard Drinks/Week Comments No 0 (1 standard drink = 0.6 oz pure alcoho l) Sex Assigned at Date Recorded Not on file documented as of this encounter Last Filed Vital Signs Vital Sign Reading Time Taken Comments Blood Pressure - - Pulse 102 06/06/2020 7:09 AM AURICULAR DETOXIFICATION SPECIALIST Temperature - - Respiratory Rate - - Oxygen Saturation - - Inhaled Oxygen Concentration - - Weight - - Height - - Body Mass Index - - documented in this encounter Progress Notes Alisha Avila, RD - 06/06/2020 7:10 AM CST HYGIENE PROPHY NOTE (NO EXAM) REASON FOR VISIT/CHIEF COMPLAINT: Loc is a 65 y.o. female who presents for Dental Hygiene COLLABORATIVE AGREEMENT: The patient consents to have charting and prophylaxis by the dental hygienist performed with the understanding that this care is not a substitute for an examination by a dentist. These activities were performed under a collaborating agreement with Beth Lauren DDS (License #: [id number]) CHART REVIEW: Reviewed with patient: Medical history, Dental history, Problem list, Periodontal charting and Radiographs PRESENTATION: Oral Hygiene: Fair Plaque: Generalized, light supra-gingival and sub-gingival Calculus: Generalized, light supra-gingival and sub-gingival Stain: Localized, light coffee/tea Bleeding: Generalized moderate Gingival tissue: Inflamed and Edematous Mucogingival concerns: Absent ACTIVITIES: Hand scale, Essential selective polishing and Flossed all contacts PATIENT EDUCATION: OHI TREATMENT REVIEW AND FOLLOW-UP: Discussed the Prognosis and Treatment options with the patient. All questions answered and informed consent was obtained. Recommended Recall Interval: Examination: 4 months : Recall prophy: 4 months Planned Recall Interval: Examination: 4 months : Recall prophy: 4 months Patient given 1%-1.5% hydrogen peroxide, rinsed for 60 seconds prior to procedure. Polished today for stain-pt doesn't get the arabic very often Next Planned Hygiene Visit: Hygiene Prophy with exam Alisha Avila 06/06/2020, 7:38 AM --End of Note-- CULAR DETOXIFICATION SPECIALIST documented in this encounter Plan of Treatment Not on filedocumented as of this encounter Procedures Procedure Name Priority Date/Time Associated Diagnosis Comme nts PROPHYLAXIS-ADULT Routine 06/06/2020 7:10 AM AURICULAR DETOXIFICATION SPECIALIST Gingivitis RECALL documented in this encounter Visit Diagnoses Diagnosis Gingivitis - Primary Chronic gingivitis, plaque induced Routine adult health maintenance Routine general medical examination at a health care facility documented in this encounter Care Teams Truck Driver Instructor Relationship Specialty Start Date End Date Alisha Kimball MD PCP - General 07/08/05 [address] [place] [address] documented as of this encounter
--- OUTSIDE RECORDS SUMMARY | 2022-04-13 07:33 | XMS_ITS | Encounter Summary ---
:1955 Author Organization [facility] Address [address] [place] [address] Care Team Providers Name Role Phone Alisha Kimball MD Primary Care Provider Encounter Details Date Type Department Care Team Description 01/03/2020 Lab Visit [facility] Type 2 diabetes mellitus wit hout complication, without long-term current use of insulin ([facility]); [address] Essential hypertension; [place] [address] Paroxysmal atrial fibrillati on ([facility]); [phone] Immunity status testing Social History Tobacco Use [...] long-term current use sectio n. of insulin ([facility]) BASIC METABOLIC Routine 01/03/2020 9:17 AM Type 2 diabetes Res ults for this PANEL CDT mellitus without procedure a re in complication, without the re sults long-term current use sectio n. of insulin ([facility]) Essential hypertension HEMOGLOBIN, BLOOD Routine 01/03/2020 [...] Results Microalb/Creat Ratio (01/03/2020 11:20 AM CDT) [facility] Method Time Signature Albumin, 28.6 mg/L 01/03/2020 [facility] Urine, Random 4:36 PM CDT CENTRAL LAB Creatinine, 155 >20 mg/dL 01/03/2020 [facility] Urine, Random 4:36 PM CDT CENTRAL LAB Albumin/Creati 18 <30 mg/g 01/03/2020 [facility] nine Ratio, 4:36 PM CDT CENTRAL LAB Urine, Random Specimen Anatomical Collection Method Collection Time Receive d Time (Source) Location / / Volume Laterality Urine Non-blood 01/03/2020 11:20 01/03/2020 Collection / AM CDT 11:34 AM CDT Unknown Alisha Kimball MD LAB_1 Performing Organization Address City/State/ZIP Code Phon e Number [facility] CENTRAL LAB [address] [address] SARS-CoV-2 IgG Antibody (Inhouse) (01/03/2020 9:17 AM CDT) [facility] Method Time Signature LYQG-[id number]-Bh Negative Negative 01/03/2020 [facility] G Antibody 3:53 PM CDT LABORATORY Interp SARS CoV-2 0.01 01/03/2020 [facility] IgG Index 3:53 PM CDT LABORATORY SARS The magnitude of 01/03/2020 [facility] CoV-2-IgG the reported 3:53 PM CDT LABORATORY Index Index is not Comment indicative of the amount of antibody present in the patient sample. SARS The SARS-CoV-2 01/03/2020 [facility] CoV-2-IgG IgG assay is 3:53 PM CDT LABORATORY Comment 1 only for use under the Food and Drug Administration's Emergency Use Authorization (EUA). SARS Negative Results 01/03/2020 [facility] CoV-2-IgG do not rule out 3:53 PM CDT LABORATORY Comment 2 SARS-CoV-2 infection, particularly in those who have been in contact with the virus. Follow-up with a molecular diagnostic test should be considered to R/O infection. SARS Results from 01/03/2020 [facility] CoV-2-IgG antibody testing 3:53 PM CDT LABORATORY [...] City/[facility]/ZIP Code Phon e Number [facility] [address] [place] [address] Hemoglobin, Blood (01/03/2020 9:17 AM CDT) athologist Signature Hemoglobin 13.6 12.0 - 15.5 01/03/2020 [place] g/dL 9:20 AM CDT LABORATORY Specimen Anatomical Collection Method / Collection Time Recei dawn Time (Source) Location / Volume Laterality Blood Venipuncture / 01/03/2020 9:17 01/03/2020 9:17 Unknown AM CDT AM CDT Alisha Kimball MD LAB_1 Performing Organization Address City/[facility] e Number [place] [facility] [address] [place], [place] [phone] (ABNORMAL) ALT (SGPT) (01/03/2020 9:17 AM CDT) P athologist Signature ALT (SGPT) 56 (H) 0 - 55 U/L 01/03/2020 [facility] 3:07 PM CDT CENTRAL LAB Specimen Anatomical Collection Method / Collection Time Recei dawn Time (Source) Location / Volume Laterality Blood Venipuncture / 01/03/2020 9:17 01/03/2020 9:17 Unknown AM CDT AM CDT Alisha Kimball MD LAB_1 Performing Organization Address [facility]/ZIP Code Phon e Number [facility] C[facility]AL LAB [address] [address] (ABNORMAL) Basic Metabolic Panel (01/03/2020 9:17 AM CDT) [facility] Method Time Signature Sodium 140 136 - 145 01/03/2020 [facility] mmol/L 3:07 PM CDT CENTRAL LAB Potassium 4.8 3.5 - 5.1 01/03/2020 [facility] mmol/L 3:07 PM CDT CENTRAL LAB Chloride 108 98 - 109 01/03/2020 [facility] mmol/L 3:07 PM CDT CENTRAL LAB CO2 21 20 - 29 01/03/2020 [facility] mmol/L 3:07 PM CDT CENTRAL LAB Anion Gap 11 7 - 16 01/03/2020 [facility] mmol/L 3:07 PM CDT CENTRAL LAB Calcium 9.4 8.4 - 01/03/2020 [facility] 10.4 3:07 PM CDT CENTRAL LAB mg/dL BUN 18 7 - 26 01/03/2020 [facility] mg/dL 3:07 PM CDT CENTRAL LAB Creatinine 0.90 0.55 - 01/03/2020 [facility] 1.02 3:07 PM CDT CENTRAL LAB mg/dL GFR, Estimated >60 >60 01/03/2020 [facility] mL/min/1. 3:07 PM CDT CENTRAL LAB 73m2 Glucose 132 (H) 70 - 100 01/03/2020 [facility] mg/dL 3:07 PM CDT CENTRAL LAB [...] Alisha Kimball MD LAB_1 Performing Organization Address [facility]/ZIP Code Phon e Number [facility] CENTRAL LAB [address] [address] [facility] [address] [place], [place] [id number] [place] [address] (ABNORMAL) Lipid Panel and Direct LDL(If Needed) (01/03/2020 9:17 AM CDT) [facility] Method Time Signature Cholesterol 157 0 - 199 01/03/2020 [facility] mg/dL 3:07 PM CDT CENTRAL LAB Triglyceride 157 (H) <=149 01/03/2020 [facility] mg/dL 3:07 PM CDT CENTRAL LAB HDL Cholesterol 46 >=40 01/03/2020 [facility] mg/dL 3:07 PM CDT CENTRAL LAB LDL, Calculated 80 <130 01/03/2020 [facility] mg/dL 3:07 PM CDT CENTRAL LAB Non HDL Chol, 111 mg/dL 01/03/2020 [facility] Calculated 3:07 PM CDT CENTRAL LAB Cholesterol/HDL 3.4 01/03/2020 [facility] Ratio 3:07 PM CDT CENTRAL LAB Hours Fasting 12 01/03/2020 [place] 3:07 PM CDT LABORATORY Specimen Anatomical Collection Method / Collection Time Recei dawn Time (Source) Location / Volume Laterality Blood Venipuncture / 01/03/2020 9:17 01/03/2020 9:17 Unknown AM CDT AM CDT Alisha Kimball MD LAB_1 Performing Organization Address City/State/[facility] Code Phon e Number [facility] CENTRAL LAB [address] [address] [place] [facility] [address] [place] [address] [phone] (ABNORMAL) Hgb A1C (01/03/2020 9:17 AM CDT) [facility] Method Time Signature Hemoglobin A1C 7.6 (H) <=5.6 % 01/03/2020 [facility] 1:12 PM CDT CENTRAL LAB Specimen Anatomical Collection Method / Collection Time Recei dawn Time (Source) Location / Volume Laterality Blood Venipuncture / 01/03/2020 9:17 01/03/2020 9:17 Unknown AM CDT AM CDT Narrative [facility] - 01/03/2020 1:12 PM CDT For patients not previously diagnosed with diabetes: 5.7-6.4%: Increased risk for diabetes 6.5% and greater: Diagnostic for diabete s For patients diagnosed with diabetes: <8.0%: Goal of therapy for ages 18-75 Clinicians may recommend a higher or low er goal for specific individuals. Alisha Kimball MD LAB_1 Performing Organization Address City/State/ZIP Code Phon e Number [facility] CENTRAL LAB [address] [phone] documented in this encounter Visit Diagnoses Diagnosis Type 2 diabetes mellitus without complic ation, without long-term current use of insulin ([facility]) Essential hypertension ([facility]) Unspecified essential hypertension Paroxysmal atrial fibrillation ([facility]) Atrial fibrillation Immunity status testing Antibody response examination documented in this encounter Care Teams Furnace Charger Relationship Specialty Start Date End Date Alisha Kimball MD PCP - General 07/08/05 [address] [place] [address] documented as of this encounter
--- OUTSIDE RECORDS SUMMARY | 2022-04-13 07:33 | XMS_ITS | Encounter Summary ---
:1955 Author Organization [facility] Address [address] [place] [address] Care Team Providers Name Role Phone Alisha Kimball MD Primary Care Provider Reason for Visit Reason Comments Dental Hygiene none Encounter Details Date Type Department Care Team Description 02/14/[address] [facility] Yaquelin Garcia Hygiene (none) [facility] [address] [address] [phone] Social History Tobacco Use Types Packs/Day Years [...] this encounter Patient Instructions Patient InstructionsYaquelin Garcia [facility] - 02/14/2020 10:20 AM CDT Your next [...] collaborating agreement with Jamaal Cleveland DDS (License #:[id number]) PRESENTATION: Oral Hygiene: Good Plaque: Localized, light supra-gingival , interproximal, mandibular anterior and posterior buccal Calculus: Localized, moderate interproximal and mandibular anterior Stain: None Bleeding: None Gingival tissue: Normal Mucogingival concerns: Absent ACTIVITIES: Hand scale, Flossed all contacts and No thai PATIENT EDUCATION: Caries risk, Periodontal risk, Oral [...] Name Priority Date/Time Associated Diagnosis Comme nts [id number] Routine 02/14/2020 10:20 AM Localized gingi vitis CDT PERIODIC ORAL EVALUATION Routine 02/14/2020 10:20 AM Localized gingivitis CDT PROPHYLAXIS-ADULT RECALL Routine 02/14/2020 10:20 AM Localized gingivitis CDT documented in this encounter Visit Diagnoses Diagnosis Localized gingivitis - Primary Gingivitis Chronic gingivitis, plaque induced documented in this encounter Care Teams Wire Wrapper Machine Operator Relationship Specialty Start Date End Date Alisha Kimball MD PCP - General 07/08/05 [address] [place] [address] documented as of this encounter
--- OUTSIDE RECORDS SUMMARY | 2022-04-13 07:33 | XMS_ITS | Encounter Summary ---
:1955 Author Organization [facility] Address [address] [place] [address] Care Team Providers Name Role Phone Alisha iKmball MD Primary Care Provider Reason for Visit Reason Comments Medication Questions Encounter Details Date Type Department Care Team Description 07/01/2019 Telephone [facility] Alisha Kimball MD Medication Questions Practice [address] [place] [address] [place] [address] [phone] Social History Tobacco Use Types Packs/Day Years Used Date Smoking Tobacco: Never Smokeless Tobacco: Never Alcohol Use Standard Drinks/Week Comments No 0 (1 standard drink = 0.6 oz pure alcoho l) Sex Assigned at Date Recorded Not on file documented as of this encounter Nursing Notes Anitra Bustillos CMA - 07/03/2019 12:05 PM CST Pt informed and agreed w/ plan. AGE GRINDER Alisha Kimball MD - 07/03/2019 11:21 AM CST OK. See orders. Call with problems or if increased palpitations. Thanks! Alisha Kimball MD AGE GRINDER Anitra Bustillos CMA - 07/03/2019 9:53 AM CST Pt states she would like to try the atenolol please. Pended. AGE GRINDER Alisha Kimball MD - 07/03/2019 8:48 AM CST If I change her to metoprolol tartrate, will need to take it twice daily. The atenolol will be once daily. Does she have a preference? Thanks! Alisha Kimball MD AGE GRINDER Marysol Edward - 07/01/2019 3:54 PM CST ALTERNATIVE REQUESTED:PT PAYING $36 FOR METOP. PT REQUESTING LOWER OUT OF POCKET COST ATENOLOL 100 MG TABLET $9 - METOPROLOL TARTRATE 100 MG TAB $9 AGE GRINDER documented in this encounter Plan of Treatment Not on filedocumented as of this encounter Visit Diagnoses Diagnosis Paroxysmal atrial fibrillation (HRC) - P rimary Atrial fibrillation documented in this encounter Care Teams Inspector Missile Relationship Specialty Start Date End Date Alisha Kimball MD PCP - General 07/08/05 [address] [facility] [place] [address] documented as of this encounter
--- OUTSIDE RECORDS SUMMARY | 2022-04-13 07:33 | XMS_ITS | Encounter Summary ---
:1955 Author Organization [facility] Address [address] [place] [address] Care Team Providers Name Role Phone Alisha Kimball MD Primary Care Provider Reason for Referral Procedure/Equipment (Routine) - Incomplete Specialty Diagnoses / Procedures Referred By Contact Refer red To Contact Procedures Alisha Kimball MD [facility] Mammogram Screening [facility] [address] [place] [address] Referral ID Status Reason Start Date Expiration Date Visits V isits Requested Authorized [id number] Incomplete 02/12/2020 05/13/2021 1 1 Reason for Visit Procedure/Equipment (Routine) - Incomplete Specialty Diagnoses / Procedures Referred By Contact Refer red To Contact Procedures Alisha Kimball MD MM Mammogram Screening [facility] [address] [place] [address] Referral ID Status Reason Start Date Expiration Date Visits V isits Requested Authorized [id number] Incomplete 02/12/2020 05/13/2021 1 1 Encounter Details Date Type Department Care Team Description 02/12/2020 Ancillary Procedure [facility] [address] [place] [address] Social History Tobacco Use Types [...] on filedocumented in this encounter Care Teams Deckhand Oyster Dredge Relationship Specialty Start Date End Date Alisha Kimball MD PCP - General 07/08/05 [address] [place] [address] documented as of this encounter
--- OUTSIDE RECORDS SUMMARY | 2022-04-13 07:33 | XMS_ITS | Encounter Summary ---
:1955 Author Organization [facility] Address [address] [place] [address] Care Team Providers Name Role Phone Alisha Kimball MD Primary Care Provider Encounter Details Date Type Department Care Team Description 04/12/2020 Lab [place] [address] [place], [place] [address] Social History Tobacco Use [...] on filedocumented in this encounter Care Teams Body Stylist Relationship Specialty Start Date End Date Alisha Kimball MD PCP - General 07/08/[address] [place], [place] [phone] documented as of this encounter
--- OUTSIDE RECORDS SUMMARY | 2022-04-13 07:33 | XMS_ITS | Encounter Summary ---
:1955 Author Organization [facility] Address [address] [place] [address] Care Team Providers Name Role Phone Alisha Kimball MD Primary Care Provider Reason for Visit Reason Comments COVID Screening Encounter Details Date Type Department Care Team Description 01/01/2020 Telephone [facility] Alisha Steinberg MD COVID Screening [address] [place] [address] [place] [address] (Wo rk) Social History Tobacco [...] Patient information Best number to contact patient: [phone] Reason for Call: COVID Screening/Testing Request In [...] on filedocumented in this encounter Care Teams Newspaper Copy Editor Relationship Specialty Start Date End Date Alisha Kimball MD PCP - General 07/08/05 [address] [place] [address] documented as of this encounter
--- OUTSIDE RECORDS SUMMARY | 2022-04-13 07:33 | XMS_ITS | Encounter Summary ---
:1955 Author Organization [facility] Address [address] [place] [address] Care Team Providers Name Role Phone Alisha Kimball MD Primary Care Provider Reason for Visit Reason Comments COVID Screening Encounter Details Date Type Department Care Team Description 12/15/2019 Telephone [facility] Alisha Steinberg MD COVID Screening [address] [facility] [address] [place] [address] [place] [address] (Wo rk) Social History Tobacco Use Types Packs/Day Years Used Date Smoking Tobacco: Never Smokeless Tobacco: Never Alcohol Use Standard Drinks/Week Comments No 0 (1 standard drink = 0.6 oz pure alcoho l) Sex Assigned at Date Recorded Not on file documented as of this encounter Nursing Notes Kesha Salter - 12/15/2019 8:25 AM CDT Initial Screening: Patient information Best number to contact patient: [phone] Reason for Call: COVID Screening/Testing Request In the last 14 days have you had close contact with a person known to have COVID-19 or been instructed to self-isolate? No Are symptoms urgent/emergent? No Do you currently have any of these symptoms? None Did not attend a large community event or gathering (e.g., protest or community clean-up) - Close encounter and follow regular process documented in this encounter Plan of Treatment Not on filedocumented as of this encounter Visit Diagnoses Not on filedocumented in this encounter Care Teams Conveyor Belt Operator Relationship Specialty Start Date End Date Alisha Kimball MD PCP - General 07/08/05 [address] [place] [address] documented as of this encounter
--- OUTSIDE RECORDS SUMMARY | 2022-04-13 07:33 | XMS_ITS | Encounter Summary ---
:1955 Author Organization [facility] Address [address] [place] [address] Care Team Providers Name Role Phone Carroll Kimball MD Primary Care Provider Reason for Visit Reason Comments Refill metFORMIN XR (GLUCOPHAGE XR) 500 MG 24 hour release tablet [Pharmacy Med Name: METFORMIN HCL ER 500 MG TABL ET] Encounter Details Date Type Department Care Team Description 07/03/2019 Refill [facility] Carroll Kimball MD Refill (metFORMIN XR Practice [address] (GLUCOPHAGE XR) 500 MG [address] [place] [address] 24 hour release tablet [place], [place] [id number] [Pharmacy Med Name: [phone] METFORMIN HCL ER 500 MG TABLET]) Social [...] CST per standing order Erlinda Dickerson RN SPORTATION INSPECTOR Interface, Out Surescripts Prov Query - 07/03/2019 1:51 AM CST metFORMIN XR (GLUCOPHAGE XR) 500 MG 24 hour release tablet [Pharmacy Med Name: METFORMIN HCL ER 500 MG TABLET] Metformin -> Refill x 3 months (courtesy refill. overdue for an office visit) Last qualifying visit: 12/12/2018 (in [facility]) Next scheduled visit: None Last ordered by CARROLL KIMBALL: 02/01/2019 (152 days ago) QTY: 360, Refills: 1, Sig: take 4 tabletsby mouth daily with breakfast. (unchanged) Cr: 1.02 mg/dL on 12/02/2018 Powered by [employer], Reference: [id number], 07/03/2019 1:51:36 AM LEORA, Pool: ARNOLD REFILL CAITLYN ([id number]) SPORTATION INSPECTOR documented in this encounter Plan of Treatment Not on filedocumented as of this encounter Visit Diagnoses Not on filedocumented in this encounter Care Teams Water Use Inspector Relationship Specialty Start Date End Date Carroll Kimball MD PCP - General 07/08/05 [address] [place] [address] documented as of this encounter
--- OUTSIDE RECORDS SUMMARY | 2022-04-13 07:33 | XMS_ITS | Encounter Summary ---
:1955 Author Organization [facility] Address [address] [place] [address] Care Team Providers Name Role Phone Ailsha Kimball MD Primary Care Provider Reason for Visit Reason Comments LAB TESTS, NOS Encounter Details Date Type Department Care Team Description 04/03/2020 Telephone [facility] Alisha Oneill MD LAB TESTS, NOS [address] [facility] [address] [place], [place] [address] [place] [address] [phone] (Wo rk) Social History Tobacco Use Types [...] (ABNORMAL) Hgb A1C (04/11/2020 8:48 AM CDT) [facility] gist Method Time Signature Hemoglobin A1C 7.2 (H) <=5.6 % 04/11/2020 [facility] 10:07 PM CDT CENTRAL LAB Specimen Anatomical Collection Method / Collection Time Recei dawn Time (Source) Location / Volume Laterality Blood Venipuncture / 04/11/2020 8:48 04/11/2020 8:48 Unknown AM CDT AM CDT Narrative [facility] - 04/11/2020 10:07 PM CDT For patients not previously diagnosed with diabetes: 5.7-6.4%: Increased risk for diabetes 6.5% and greater: Diagnostic for diabete s For patients diagnosed with diabetes: <8.0%: Goal of therapy for ages 18-75 Clinicians may recommend a higher or low er goal for specific individuals. Alisha Kimball MD LAB_1 Performing Organization Address City/State/ZIP Code Phon e Number [facility] [address] [address] documented in this encounter Visit Diagnoses Diagnosis Type 2 diabetes mellitus without complic ation, without long-term current use of insulin (HRC) - Primary Hypercholesterolemia Pure hypercholesterolemia documented in this encounter Care Teams Java Web Services Developer Relationship Specialty Start Date End Date Alisha Kimball MD PCP - General 07/08/05 [address] [place] [address] documented as of this encounter
--- OUTSIDE RECORDS SUMMARY | 2022-04-13 07:33 | XMS_ITS | Encounter Summary ---
:1955 Author Organization [facility] Address [address] [place] [address] Care Team Providers Name Role Phone Alisha Kimball MD Primary Care Provider Encounter Details Date Type Department Care Team Description 08/18/2019 Office Visit [facility] Dyspn ea on exertion Cardiac Non-Invasive Lab (Primary Dx) [address] [place] [address] Social History Tobacco Use Types [...] within one week. Please follow up with [facility] clinic if you have not received your test results. ONNEL TRAINING OFFICER documented in this encounter Progress Notes Fernando [...] (FLONASE) 50 MCG/ACT nasal solution Place [address] [place] into both nostrils daily. decreaseto 1 spray [...] will follow up with Janice Taveras at [facility]iology clinic. Discharge Instructions: follow up with Brainne Tainter Test done with paraprofessional interpreter present: no 22 gauge IV catheter inserted by WP in the left antecubital. IV site appears: normal with intact catheter. IV D/C'd by:.MR. Fernando Nicholas Thiernobrissa Janice Reed PA-C - 08/18/2019 8:00 AM CST Please let Mleia know great news, her stress did not show any evidence of ischemia/infarction suggesting blockages. She has excellent functional capacity for her age. Is she still experiencing SOB episodes? Janice Gill PA-C ONNEL TRAINING OFFICER Angie Fong RN - 08/18/2019 8:00 AM [...] recommendations. Angie Fong RN 08/28/2019, 2:52 PM ONNEL TRAINING OFFICER documented in this encounter Plan of Treatment Not on filedocumented as of this encounter Procedures Procedure Name Priority Date/Time Associated Comments Diagnosis EJECTION FRACTION Routine 08/18/2019 8:14 AM Resu lts for this PERSONNEL TRAINING OFFICER procedure are i n the results section. CARDIAC STRESS Routine 08/18/2019 8:14 AM Dyspnea on Results for this ECHOCARDIOGRAM PERSONNEL TRAINING OFFICER exertion procedure are in the results section. documented in this encounter Results EJECTION FRACTION (08/18/2019 8:14 AM PERSONNEL TRAINING OFFICER) P athologist Signature EF 60 % PROS[facility] EF test type ECHO [facility] Specimen (Source) Anatomical Collection Method Collection Time Re ceived Time Location / / Volume Laterality 08/18/2019 8:14 AM PERSONNEL TRAINING OFFICER Janice Gill PA-C [facility]PORT OPERATIONS OFFICER/RH Performing Organization Address City/State/ZIP Code Phon e Number [facility] [address] [place] [address] CARDIAC TREADMILL STRESS ECHOCARDIOGRAM (08/18/2019 8:14 AM PERSONNEL TRAINING OFFICER) Specimen (Source) Anatomical Collection Method Collection Time Re ceived Time Location / / Volume Laterality 08/18/2019 8:14 AM PERSONNEL TRAINING OFFICER Narrative [facility] - 08/18/2019 10:40 AM PERSONNEL TRAINING OFFICER Contrast:Optison 3.0 ml ?Contrast Allergy:NO Indication: SOB [...] 133 85.8 % [place] [id number] = Resting BP: 140 / 88 Peak [...] Phon e Number [facility] [address] [place] [address] documented in this encounter Visit Diagnoses Diagnosis Dyspnea on exertion - Primary Other dyspnea and respiratory abnormalit y documented in this encounter Care Teams Motor Builder Winder Relationship Specialty Start Date End Date Alisha Kimball MD PCP - General 07/08/05 [address] [place] [address] documented as of this encounter
--- OUTSIDE RECORDS SUMMARY | 2022-04-13 07:33 | XMS_ITS | Encounter Summary ---
:1955 Author Organization [facility] Address [address] [address] Care Team Providers Name Role Phone Alisha Kimball MD Primary Care Provider Reason for Visit Reason Comments Dental Hygiene cc none Encounter Details Date Type Department Care Team Description 06/13/2019 Office Visit [facility] Regina Guaman Dental Hygiene (cc Dentistry [address] [facility] none) [address] [place] [phone] Social History Tobacco Use Types Packs/Day Years Used Date Smoking Tobacco: Never Smokeless Tobacco: Never Alcohol Use Standard Drinks/Week Comments No 0 (1 standard drink = 0.6 oz pure alcoho l) Sex Assigned at Date Recorded Not on file documented as of this encounter Last Filed Vital Signs Vital Sign Reading Time Taken Comments Blood Pressure - - Pulse 108 06/13/2019 9:15 AM ARTILLERY MAINTENANCE SUPERVISOR Temperature - - Respiratory Rate - - Oxygen Saturation - - Inhaled Oxygen Concentration - - Weight - - Height - - Body Mass Index - - documented in this encounter Patient Instructions Patient InstructionsKesha Guaman - 06/13/2019 9:10 AM CST Your next hygiene recall is due: 10/13/2019 YOUR PERSONAL DENTAL RISK REPORT Caries (Tooth Decay) Risk Periodontal (Gum) Disease Risk Oral Cancer Risk LOW mod high low MOD high LOW [...] next visit! Thank you for choosing [facility]. LLERY MAINTENANCE SUPERVISOR documented in this encounter Progress Notes Jamaal Cleveland DDS - 06/13/2019 9:10 AM CST RECALL [EXAM] NOTE REASON FOR VISIT/CHIEF COMPLAINT: Loc is a 64 y.o. female who presents for Dental Hygiene (cc none) CHART REVIEW: Reviewed with patient: Medical history, [...] 4 months. Next Planned Visit: 4 month recall prophylaxis no exam. Pt not interested in replacing missing teeth --End of Note-- LLERY MAINTENANCE SUPERVISOR Jamaal Cleveland DDS - 06/13/2019 9:10 AM CST [HYGIENE PROPHY] NOTE Consent given PRESENTATION: Oral Hygiene: Good Plaque: Generalized, light supra-gingival Calculus: Localized, light mandibular anterior Stain: None Bleeding: None Gingival tissue: Normal Mucogingival concerns: Absent ACTIVITIES: Hand scale, Essential selective polishing and Flossed all contacts PATIENT EDUCATION: Caries risk, Periodontal risk, Oral cancer risk and OHI NEXT PLANNED HYGIENE VISIT: Hygiene Prophy no exam Kesha Guaman 06/13/2019, 9:49 AM --End of Note-- LLERY MAINTENANCE SUPERVISOR documented in this encounter Plan of Treatment Not on filedocumented as of this encounter Procedures Procedure Name Priority Date/Time Associated Diagnosis Comme nts PERIODIC ORAL EVALUATION Routine 06/13/2019 9:10 AM ARTILLERY MAINTENANCE SUPERVISOR Locali zed gingivitis PROPHYLAXIS-ADULT RECALL Routine 06/13/2019 9:10 AM ARTILLERY MAINTENANCE SUPERVISOR Locali zed gingivitis documented in this encounter Visit Diagnoses Diagnosis Localized gingivitis - Primary documented in this encounter Care Teams Briquette Operator Relationship Specialty Start Date End Date Alisha Kimball MD PCP - General 07/08/05 [address] [place] [address] documented as of this encounter
--- OUTSIDE RECORDS SUMMARY | 2022-04-13 07:33 | XMS_ITS | Encounter Summary ---
:1955 Author [facility] Address [address] [place] [address] Care Team Providers Name Role Phone Alisha Kimball MD Primary Care Provider Reason for Visit Reason Comments COVID Screening Encounter Details Date Type Department Care Team Description 11/09/2019 Telephone [facility] Alisha Steinberg MD COVID Screening [address] [facility]. [address] [facility] [place] [address] [place], [place] [phone] (Wo rk) Social History Tobacco Use Types [...] Patient information Best number to contact patient: [phone] Reason for Visit: Other: F/U 1 YEAR [...] on filedocumented in this encounter Care Teams Emotional Disabilities Teacher Relationship Specialty Start Date End Date Alisha Kimball MD PCP - General 07/08/05 [address] [place] [address] documented as of this encounter
--- OUTSIDE RECORDS SUMMARY | 2022-04-13 07:33 | XMS_ITS | Encounter Summary ---
:1955 Author Organization [facility] Address [address] [place] [address] Care Team Providers Name Role Phone Alisha [...] Department Care Team Description 04/16/2020 Office Visit [facility] Alisha Kimball, Kathi painting hypertension; Practice Paroxysmal atrial fibrillation (HRC) [address] [place] [address] [place] [address] [phone] Social History Tobacco Use Types Packs/Day Years [...] take warfarin. [facility] ?? Don't take warfarin if you [...] These include aspirin and other pain relievers, [id number] medicines, multivitamins, dietary supplements, and herbal products. [...] Leafy greens, such as kale, cabbage, spinach, Moldovan chard, and lettuce. ?? Canola and soybean oils. ?? Green vegetables, such as asparagus, broccoli, and [place] sprouts. ?? Vegetable drinks, green tea leaves, [...] Where can you learn more? Go to [employer]/Sustainability Roundtable and enter N172 in the search box. Current as of: September 13, 2013 Content Version: 10.1 ?? [id number] [employer]. documented in this encounter Progress Notes Alisha [...] fibrillation documented in this encounter Care Teams Latexer Relationship Specialty Start Date End Date Alisha Kimball MD PCP - General 07/08/05 [address] [place] [address] documented as of this encounter
--- OUTSIDE RECORDS SUMMARY | 2022-04-13 07:33 | XMS_ITS | Encounter Summary ---
:[address] [facility] Address [address] [facility] [place] [address] Care Team Providers Name Role Phone Alisha Kimball MD Primary Care Provider Reason for Visit Reason Comments FOLLOW-UP,HEART increased TANNER Encounter Details Date Type Department Care Team Description 08/09/2019 Office Visit [facility] Janice Gill (dyspnea on exertion) (Primary Dx); Cardiology EMILY Whipple Paroxysmal atrial fibrillati on (HRC); [address] [facility] Essential hypertension; [place] [address] Hyperlipidemia, unspecified hyperlipidemia type [phone] Social History Tobacco Use Types Packs/Day Years Used Date Smoking Tobacco: Never Smokeless Tobacco: Never Alcohol Use Standard Drinks/Week Comments No 0 (1 standard drink = 0.6 oz pure alcoho l) Sex Assigned at Date Recorded Not on file documented as of this encounter Last Filed Vital Signs Vital Sign Reading Time Taken Comments Blood Pressure 147/89 08/09/2019 7:34 AM ANTIQUE DEALER Pulse 68 08/09/2019 7:34 AM ANTIQUE DEALER Temperature - - Respiratory Rate 15 08/09/2019 7:34 AM ANTIQUE DEALER Oxygen Saturation 96% 08/09/2019 7:34 AM ANTIQUE DEALER Inhaled Oxygen Concentration - - Weight 81.2 kg (179 lb) 08/09/2019 7:34 AM ANTIQUE DEALER Height 163.8 cm (5' 4.5) 08/09/2019 7:34 AM ANTIQUE DEALER Body Mass Index 30.25 08/09/2019 7:34 AM ANTIQUE DEALER documented in this encounter Patient Instructions Patient InstructionsJanice Gill PA-C - 08/09/2019 7:20 AM CST CARDIOLOGY PATIENT INSTRUCTIONS It was a pleasure to see youMelia. I recommend the following: # Schedule a treadmill stress echocardiogram / Hold beta nick 24 hours before test( Atenolol ) # We will check a thyroid test and blood count with your next lab draw # If stress test reassuring, after you make the switch to Atenolol, we can do a 24-48 hour Holter monitor to assess rate control # Follow up pending results of testing Please do not hesitate to contact us at [phone] with any questions or concerns. Regards, Janice Gill PA-C QUE DEALER documented in this encounter Progress Notes Janice Gill PA-C - 08/09/2019 7:20 AM CST Cardiology Clinic Note 08/09/2019 SUBJECTIVE:Loc Velasco is a 62 y/o female w/ PMH significant for DMII, HTN, HLD and PAF who presents for follow-up. Initially seen in Cardiology Clinic 03/2017 for evaluation of PAF and syncope. Her medical therapy was adjusted and she was started on anticoagulation. I last saw the patient 09/2017 at which time she was noting palpitations but did not wish to pursue any rhythm monitoring. Today, Melia presents for evaluation of SOB. Experiences when walking up and down stairs and when getting out the car to walk into a store or building. Does not happen every time, more intermittent. Noassociated chest pain, dizziness or lightheadedness. No edema or weight gain. Exercises 4 times a week without any symptoms. Continues to have occasional palpitations, notable while sitting watching TVor lying down at night. About the same as our visit 2 years ago, no worsening. Does snore and has attempted to do a sleep study but was unable to sleep. Was switched from metoprolol to atenolol by her PCP to help with cost of the medication, however, she has not yet made the switch in medications as she is using up her current supply of metoprolol. She denies any bleeding concerns on Eliquis. PAST MEDICAL HISTORY: 1. PAF, on Apixaban 2. DMII 3. HTN 4. HLD 5. FmHx CAD in 50s-60s MEDICATIONS: Atenolol 100 mg daily - not yet taking, still taking Toprol XL 200 mg daily Atorvastatin 10 mg daily Eliquis 5 mg b.i.d. Losartan 50 mg daily ROS: Pertinent findings per HPI. EXAM: Vitals: 08/09/19 0734 BP: (!) 147/89 Pulse: 68 Resp: 15 Gen: Pleasant, no acute distress Neck: Supple. No JVD. Pulm: Clear to auscultation bilaterally. Normal effort of breathing. CV: Normal rate, regular rhythm , nl S1 & s2. No murmur Ext: Warm and well perfused, no edema. No cyanosis or clubbing. Skin: No rash. Psych: Normal affect. Wt Readings from Last 3 Encounters: 08/09/19 179 lb (81.2 kg) 12/12/18 184 lb (83.5 kg) 07/28/18 186 lb (84.4 kg) BP Readings from Last 3 Encounters: 08/09/19 (!) 147/89 03/28/19 107/86 12/12/18 (!) 155/85 Labs: Component Latest Ref Rng & Units 11/26/2017 AST (SGOT) 10 - 40 U/L 26 ALT (SGPT) 0 - 55 U/L 44 Component Latest Ref Rng & Units 12/02/2018 7:34 AM Cholesterol 0 - 199 mg/dL 167 Triglyceride <=149 mg/dL 146 HDL >=40 mg/dL 44 LDL, Calc. <130 mg/dL 94 Non HDL Chol, Calc <=159 mg/dL 123 Chol/HDL Ratio 3.8 Hours Fasting 12 Component Latest Ref Rng & Units 12/02/2018 7:34 AM BUN 7 - 26 mg/dL 28 (H) Creatinine 0.55 - 1.02 mg/dL 1.02 GFR, Estimated >60 mL/min/1.73m2 58 (L) GFR, Est., If Black >60 mL/min/1.73m2 >60 Component Latest Ref Rng & Units 12/02/2018 7:34 AM Sodium 136 - 145 mmol/L 138 Potassium 3.5 - 5.1 mmol/L 4.6 Stress 03/2017: ECG Stress Conclusions The patient [...] EF 65%. No prior study available. Echo 04/2017: Normal LV size and systolic function. ?? Normal RV size and function. ?? Moderate biatrial enlargement. ?? No significant valvular abnormalities. ?? No prior echo available. ?? Left Ventricular Ejection Fraction: 60 % Holter 05/2017: Sinus rhythm, PACs, atrial fibrillation. Heart rate 50-160 BPM. ASSESSMENT: # TANNER: Has typical and atypical features for angina. She does have a significant family history of early CAD and risk factors herself. Will proceed with treadmill stress echocardiogram for risk stratification. We can also get an assessment of the LVEF with this. She had no significant valve disease onher echocardiogram 2 years ago, so I have a low suspicion this has drastically changed. If stress echo is normal, we may consider proceeding with a Holter monitor to evaluate for rate control with her PAF episodes. Although with the consistency of her symptoms happening when walking up and down stairsand when getting out of the car would be unlikely that she is going into AFib consistently at these times. Will update a TSH and hemoglobin. # PAF with intermittent RVR: Currently on Toprol-XL 200 mg daily for rate control. She is on Eliquisfor [id number] score of 3. # HTN: Mildly elevated in clinic today, she reports intermittent readings at home. She is working with her PCP on blood pressure control and would prefer to defer any medication changes to her at this time. # HLD: On statin, no CAD. Last LDL 94. # DMII: Last a1c 6.7%, management per PCP. PLAN: # Schedule a treadmill stress echocardiogram / Hold beta nick 24 hours before test( Atenolol ) # We will check a thyroid test and blood count with your next lab draw # If stress test reassuring, after you make the switch to Atenolol, we can do a 24-48 hour Holter monitor to assess rate control # Follow up pending results of testing Thank you for involving me in the care of your patient. If you have any questions or need additionalassistance please do not hesitate to contact me. Janice Gill PA-C [facility] QUE DEALER documented in this encounter Plan of Treatment Not on filedocumented as of this encounter Results TSH with Free T4 (if TSH Abnormal) (04/11/2020 8:48 AM CDT) athologist Signature TSH, Reflex 3.02 0.30 - 04/11/2020 [facility] 4.50 11:53 AM CDT CENTRAL LAB uIU/mL Specimen Anatomical Collection Method / Collection Time Recei dawn Time (Source) Location / Volume Laterality Blood Venipuncture / 04/11/2020 8:48 04/11/2020 8:48 Unknown AM CDT AM CDT Narrative [facility]AL [facility] - 04/11/2020 11:53 AM CDT Lab will automatically reflex to Free T4 when TSH results are <0.30 uIU/mL or >4.50 mIU/mL. Janice Gill PA-C LAB_1 Performing Organization Address City/State/[facility] Code Phon e Number [facility] [address] [phone] documented in this encounter Visit Diagnoses Diagnosis TANNER (dyspnea on exertion) - Primary Other dyspnea and respiratory abnormalit y Paroxysmal atrial fibrillation (HRC) Atrial fibrillation Essential hypertension (HRC) Unspecified essential hypertension Hyperlipidemia, unspecified hyperlipidem ia type (HRC) documented in this encounter Care Teams Surgery Specialist Relationship Specialty Start Date End Date Alisha Kimball MD PCP - General 07/08/05 [address] [place] [address] documented as of this encounter
--- OUTSIDE RECORDS SUMMARY | 2022-04-13 07:33 | XMS_ITS | Encounter Summary ---
:1955 Author [facility] Address [address] [place] [address] Care Team Providers Name Role Phone Alisha Kimball MD Primary Care Provider Reason for Visit Reason Comments BP,ELEVATED Encounter Details Date Type Department Care Team Description 04/11/2020 Telephone [facility] Alisha Remy MD BP,ELEVATED [address] [place] [address] [place] [address] (Wo rk) Social History Tobacco [...] pain, include location): Patient was seen at [facility] today, and had her BP checked. It was 167/136. Was told to call her clinic. What have you tried at home (please specify medication name, if any)? Patient on Losartan. Have you recently been seen for this? Yes: [Power Lineworker/Appt Center: Refer to Symptoms Indicating Need for Triage list to determine urgency level and next steps - if Urgent or Routine, schedule appointment within the appropriate timeframe.If patient wants to speak to an RN, please warm transfer/route to RN for further triage.] [Power Lineworker/Appt Center: Add/verify patient preferred pharmacy is highlighted in blue in the Pharmacy Selection under Meds & Orders] [Power Lineworker/Appt Center: If this call is after 3 p.m., communicate to patient: If we are not able to get back to you by the end of the day and your symptoms worsen, please contact the Careline [phone] OR at .] Is it okay to leave a detailed message on your voicemail? Yes I can transfer you to talk to a Triage Nurse or I am happy to get you scheduled with your primary nursing care partner or one of their partners for a [...] hypertension documented in this encounter Care Teams Sand System Operator Relationship Specialty Start Date End Date Alisha Kimball MD PCP - General 07/08/05 [address] [place] [address] documented as of this encounter
--- OUTSIDE RECORDS SUMMARY | 2022-04-13 07:33 | XMS_ITS | Encounter Summary ---
:1955 Author Organization [facility] Address [address] [place] [address] Care Team Providers Name Role Phone Alisha Kimball MD Primary Care Provider Reason for Visit Reason Comments BP CHECK,NURSE SHOT,FLU Encounter Details Date Type Department Care Team Description 03/28/2019 Nursing Visit [facility] ial hypertension; Department Encounter for immunization [address] [place], [place] [address] Social History Tobacco Use [...] can you learn more? 1. Go to [email or web address] or [email or web address]. 2. Enter X567 in the search box. Current as of: January 23, 2018 Content Version: 12.0 ?? [id number] [employer]. Care instructions adapted under license by your healthcare professional. If you have questions about a medical condition or this instruction, always ask your healthcare professional. [employer] disclaims any warranty or liability for your [...] Not at goal today. Since normal at [facility], continue to watch. She will follow up [...] disease documented in this encounter Care Teams Production Shift Supervisor Relationship Specialty Start Date End Date Alisha Kimball MD PCP - General 07/08/05 [address] [place] [address] documented as of this encounter
--- OUTSIDE RECORDS SUMMARY | 2022-04-13 07:33 | XMS_ITS | Encounter Summary ---
:1955 Author Organization [employer] Address [address] [place] [address] Care Team Providers Name Role Phone Carroll Avalos MD Primary Care Provider Encounter Details Date Type Department Care Team Description 04/11/2020 Lab Visit Doran Elevated liver enzymes (Primary Dx); Laboratory Essential hypertension; [address] [facility] (dyspnea on exertion); [place], [place] [address] Type 2 diabetes mellitus wit hout complication, without long-term current use of insulin (HRC); [phone] Hypercholestero lemia Social History Tobacco Use Types Packs/Day Years Used Date Smoking Tobacco: Never Smokeless Tobacco: Never Alcohol Use Standard Drinks/Week Comments No 0 (1 standard drink = 0.6 oz pure alcoho l) Sex Assigned at Date Recorded Not on file documented as of this encounter Progress Notes Carroll Avalos MD - 04/11/2020 9:00 AM CDT Addended by: CARROLL AVALOS on: 04/14/2020 01:10 PM Modules accepted: Orders [...] (ABNORMAL) Microalb/Creat Ratio (04/11/2020 11:00 AM CDT) [facility] Signature Albumin, 72.7 mg/L 04/11/2020 [employer] Urine, Random 5:52 PM CDT [facility]AL [facility] Creatinine, 129 >20 mg/dL 04/11/2020 [facility] Urine, Random 5:52 PM CDT CENTRAL LAB Albumin/Creati 56 (H) <30 mg/g 04/11/2020 [facility] nine Ratio, 5:52 PM CDT CEN[facility]AL LAB Urine, Random Specimen Anatomical Collection Method Collection Time Receive d Time (Source) Location / / Volume Laterality Urine,random 04/11/2020 11:00 04/11/2020 AM CDT 12:31 PM CDT Kareen Cohen APRN, ISI LAB_1 Performing Organization Address City/State/ZIP Code Phon e Number [facility] [address] [address] (ABNORMAL) Hgb A1C (04/11/2020 8:48 AM CDT) [employer] Method Time Signature Hemoglobin A1C 7.2 (H) <=5.6 % 04/11/2020 [facility] 10:07 PM CDT C[facility]AL LAB Specimen Anatomical Collection Method / Collection Time Recei dawn Time (Source) Location / Volume Laterality Blood Venipuncture / 04/11/2020 8:48 04/11/2020 8:48 Unknown AM CDT AM CDT Narrative [facility] - 04/11/2020 10:07 PM CDT For patients not previously diagnosed with diabetes: 5.7-6.4%: Increased risk for diabetes 6.5% and greater: Diagnostic for diabete s For patients diagnosed with diabetes: <8.0%: Goal of therapy for ages 18-75 Clinicians may recommend a higher or low er goal for specific individuals. Carroll Avalos MD LAB_1 Performing Organization Address [facility] e Number [facility] [address] [address] TSH with Free T4 (if TSH Abnormal) (04/11/2020 8:48 AM CDT) athologist Signature TSH, Reflex 3.02 0.30 - 04/11/2020 [facility] 4.50 11:53 AM CDT CENTRAL LAB uIU/mL Specimen Anatomical Collection Method / Collection Time Recei dawn Time (Source) Location / Volume Laterality Blood Venipuncture / 04/11/2020 8:48 04/11/2020 8:48 Unknown AM CDT AM CDT Critical access hospital CENTRAL LAB - 04/11/2020 11:53 AM CDT Lab will automatically reflex to Free T4 when TSH results are <0.30 uIU/mL or >4.50 mIU/mL. Janice Gill PA-C LAB_1 Performing [address] [facility] e Number [facility] [address] [place] [phone] (ABNORMAL) ALT (SGPT) (04/11/2020 8:48 AM CDT) athologist Signature ALT (SGPT) 63 (H) 0 - 55 U/L 04/11/2020 [facility] 11:44 AM CDT CENTRAL LAB Specimen Anatomical Collection Method / Collection Time Recei dawn Time (Source) Location / Volume Laterality Blood Venipuncture / 04/11/2020 8:48 04/11/2020 8:48 Unknown AM CDT AM CDT Janice Gill PA-C LAB_1 Performing Organization Address [facility] e Number [facility] [address] [address] (ABNORMAL) BASIC METABOLIC PANEL (04/11/2020 8:48 AM CDT) [facility] gist Method Time Signature Sodium 139 136 - 145 04/11/2020 [facility] mmol/L 11:44 AM CDT CENTRAL LAB Potassium 4.6 3.5 - 5.1 04/11/2020 [facility] mmol/L 11:44 AM CDT CENTRAL LAB Chloride 105 98 - 109 04/11/2020 [facility] mmol/L 11:44 AM CDT CENTRAL LAB CO2 26 20 - 29 04/11/2020 [facility] mmol/L 11:44 AM CDT CEN[facility]AL LAB Anion Gap 8 7 - 16 04/11/2020 [facility] mmol/L 11:44 AM CDT CENTRAL LAB Calcium 9.1 8.4 - 04/11/2020 [facility] 10.4 11:44 AM CDT C[facility]AL LAB mg/dL BUN 16 7 - 26 04/11/2020 [facility] mg/dL 11:44 AM CDT CENTRAL LAB Creatinine 0.87 0.55 - 04/11/2020 [facility] 1.02 11:44 AM CDT CENTRAL LAB mg/dL GFR, Estimated >60 >60 04/11/2020 [facility] mL/min/1. 11:44 AM CDT CENTRAL LAB 73m2 Glucose 128 (H) 70 - 100 04/11/2020 [facility] mg/dL 11:44 AM CDT CENTRAL LAB Comment: The given reference range is fo r the fasting state. Non-fasting reference range for glucose is 70 - 180 mg/dL. Hours Fasting N/A 04/11/2020 11:44 AM CDT [facility] Specimen Anatomical Collection Method / Collection Time Recei dawn Time (Source) Location / Volume Laterality Blood Venipuncture / 04/11/2020 8:48 04/11/2020 8:48 Unknown AM CDT AM CDT Janice Gill PA-C LAB_1 Performing Organization Address City/State/ZIP Code Phon e Number [facility] [address] [address] [facility] [address] [place], [place] [phone], [facility] CBC (aka HEMOGRAM/PLTS) (04/11/2020 8:48 AM CDT) P athologist Signature WBC 7.1 3.5 - 10.5 04/11/2020 [facility] x10(9)/L 8:58 AM CDT LAB RBC 4.71 3.90 - 5.03 04/11/2020 [facility] x10(12)/L 8:58 AM CDT LAB Hemoglobin 13.9 12.0 - 15.5 04/11/2020 [facility] g/dL 8:58 AM CDT LAB HCT 42.3 34.9 - 44.5 04/11/2020 [facility] % 8:58 AM CDT LAB MCV 89.8 80.0 - 04/11/2020 [facility] 100.0 fL 8:58 AM CDT LAB MCH 29.5 27.6 - 33.3 04/11/2020 [facility] pg 8:58 AM CDT LAB MCHC 32.9 31.5 - 35.2 04/11/2020 [facility] g/dL 8:58 AM CDT LAB RDW 13.1 11.9 - 15.5 04/11/2020 [facility] % 8:58 AM CDT LAB Platelets 223 150 - 450 04/11/2020 [facility] x10(9)/L 8:58 AM CDT LAB Specimen Anatomical Collection Method / Collection Time Recei dawn Time (Source) Location / Volume Laterality Blood Venipuncture / 04/11/2020 8:48 04/11/2020 8:48 Unknown AM CDT AM CDT Janice Gill PA-C LAB_1 Performing Organization Address City/State/ZIP Code Phon e Number [facility] [address] [place] [address] documented in this encounter Visit [...] hypercholesterolemia documented in this encounter Care Teams Knife Sharpener Relationship Specialty Start Date End Date Carroll Avalos MD PCP - General 07/08/[address] [place] [address] (work) documented as of this encounter
--- OUTSIDE RECORDS SUMMARY | 2022-04-13 07:33 | XMS_ITS | Encounter Summary ---
:1955 Author Organization [facility] Address [address] [place] [address] Care Team Providers Name Role Phone Alisha Kimball MD Primary Care Provider Reason for Referral Procedure/Equipment (Routine) - Incomplete Specialty Diagnoses / Procedures Referred By Contact Refer red To Contact Procedures Alisha Kimball MD [facility] [address] [place] [address] Referral ID Status Reason Start Date Expiration Date Visits V isits Requested Authorized [id number] Incomplete 02/10/2019 05/11/2020 1 1 Reason for Visit Procedure/Equipment (Routine) - Incomplete Specialty Diagnoses / Procedures Referred By Contact Refer red To Contact Procedures Alisha Kimball MD [facility] M[facility]ogram Scre[facility] [address] [place] [address] Referral ID Status Reason Start Date Expiration Date Visits V isits Requested Authorized [id number] Incomplete 02/10/2019 05/11/2020 1 1 Encounter Details Date Type Department Care Team Description 02/10/2019 Ancillary Procedure [facility] [address] [place] [address] Social History Tobacco Use Types [...] on filedocumented in this encounter Care Teams Lang Path Therapist Relationship Specialty Start Date End Date Alisha Kimball MD PCP - General 07/08/05 [address] [place] [address] documented as of this encounter
--- OUTSIDE RECORDS SUMMARY | 2022-04-13 07:33 | XMS_ITS | Encounter Summary ---
:1955 Author Organization [facility] Address [address] [place] [address] Care Team Providers Name Role Phone Carroll Avalos MD Primary Care Provider Reason for Visit Reason Comments Refill ELIQUIS 5 MG tablet Encounter Details Date Type Department Care Team Description 06/15/2019 Telephone [facility] Carroll Avalos MD Refill (ELIQUIS 5 MG Practice [address] tablet) [address] [place] [address] [place] [address] [phone] Social History Tobacco Use Types Packs/Day Years Used Date Smoking Tobacco: Never Smokeless Tobacco: Never Alcohol Use Standard Drinks/Week Comments No 0 (1 standard drink = 0.6 oz pure alcoho l) Sex Assigned at Date Recorded Not on file documented as of this encounter Nursing Notes Interface, Out Surescripts Prov Query - 06/15/2019 10:51 AM CST apixaban (ELIQUIS) 5 MG tablet None Exists -> A duplicate request was processed on 06/15/2019. -> Medication cannot be delegated. Last qualifying visit: 12/12/2018 (in [facility]) Next scheduled visit: None Last ordered by CARROLL AVALOS K: 06/16/2018 (364 days ago) QTY: 180, Refills: 3, Sig: take 1 tablet by mouth twice a day (changed but equivalent) Powered by [employer], Reference: [id number], 06/15/2019 10:51:31 AM Luis Eduardo COREY: ARNOLD AMEZQUITA RN ([id number]) Rocio Watts - 06/15/2019 10:49 AM CST Patient is leaving [facility] on 06/18/19 thru 08/05/18 and currently does not have enough medication to get her thru 08/05/19. RESTAURANT documented in this encounter Plan of Treatment Not on filedocumented as of this encounter Visit Diagnoses Diagnosis Paroxysmal atrial fibrillation (HRC) Atrial fibrillation documented in this encounter Care Teams Private Advisor Relationship Specialty Start Date End Date Carroll Avalos MD PCP - General 07/08/05 [address] [place] [address] documented as of this encounter
--- OUTSIDE RECORDS SUMMARY | 2022-04-13 07:33 | XMS_ITS | Encounter Summary ---
:1955 Author Organization [facility] Address [address] [facility] [place] [address] Care Team Providers Name Role Phone Alisha Kimball MD Primary Care Provider Reason for Visit Reason Comments BLOOD PRESSURE CHECK Encounter Details Date Type Department Care Team Description 05/31/2020 Telephone [facility] Alisha Kimball MD BLOOD PRESSURE CHECK Practice [address] [place] [address] [place], [place] [address] [phone] Social History Tobacco Use Types Packs/Day Years Used Date Smoking Tobacco: Never Smokeless Tobacco: Never Alcohol Use Standard Drinks/Week Comments No 0 (1 standard drink = 0.6 oz pure alcoho l) Sex Assigned at Date Recorded Not on file documented as of this encounter Nursing Notes Weekly, Tesha Mcmahon LPN - 06/07/2020 12:22 PM CST Spoke with patient, relayed message below from Dr. Kimball. Patient denies having any light-headedness when she [...] Dr Kimball questions. Please call back at [phone] and ask for Nga Kimball's nurse. Nga Ballard LPN F BOX FINISHER Reina Velasquez LPN - 05/31/2020 10:58 AM CST Animal Anatomist left a message for patient to return call to clinic. Reina Velasquez LPN F BOX FINISHER Alisha Kimball MD - 05/31/2020 9:38 AM CST Some of the readings are pretty low. Does she have lightheadedness when she stands up? Does she wantto decrease her losartan to 1/2 tab daily and monitor her blood pressure? Thanks! Alisha Kimball MD Vero Ramirez - 05/31/2020 8:59 AM CST Miscellaneous Questions & FYI's [Medical Coding Manager: If this call is after 3 p.m., communicate to patient: If we are not able to get back to you by the end of the day and your symptoms worsen please contact the Careline at [phone] at .] Is this a question/concern or [...] route to None OR Care Team Pool [VOTING MACHINE REPAIRER/RMA/LPNs: please call the patient to gather additional details, as needed.] F BOX FINISHER documented in this encounter Plan of Treatment Not on filedocumented as of this encounter Visit Diagnoses Not on filedocumented in this encounter Care Teams Rn Clinical Resource Relationship Specialty Start Date End Date Alisha Kimball MD PCP - General 07/08/05 [address] [place] [address] documented as of this encounter
--- OUTSIDE RECORDS SUMMARY | 2022-04-13 07:33 | XMS_ITS | Encounter Summary ---
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 [place] [address] [place], [place] [phone] [address] Social History Tobacco Use Types Packs/Day Years Used Date Smoking Tobacco: Never Smokeless Tobacco: Never Alcohol Use Standard Drinks/Week Comments No 0 (1 standard drink = 0.6 oz pure alcoho l) Sex Assigned at Date Recorded Not on file documented as of this encounter Patient Instructions Patient InstructionsEric Keller, RAJEEV - 01/25/2020 9:20 AM CDT Your eyes are healthy No diabetic changes Continue readers as needed. Return 1 year documented in this encounter Progress Notes Eric Keller OD - 01/25/2020 9:20 AM CDT Chief Complaint Patient presents with ??? Eye Exam HPI RAMIN 01/2019 Krishna Overall no vision changes, just readers otcs Ou feel- using systane drops 1-2 x daily, sometimes Lumify, and most [facility] the [facility] - A couple days ago 120 in the am, metformin, type II, last a1c 01/2020 7.6 Last edited by Lien Miles on 01/25/2020 9:29 AM. (History) Routine Eye Exam Loc Velasco is a 64 y.o. year old female here for a routine eye exam. Diabetes is Type II (adult) and is managed by oral meds. 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
--- OUTSIDE RECORDS SUMMARY | 2022-04-13 07:33 | XMS_ITS | Encounter Summary ---
:1955 Author Organization [facility] Address [address] [place] [address] Care Team Providers Name Role Phone Alisha Kimball MD Primary Care Provider Reason for Referral Procedure/Equipment (Routine) - Incomplete Specialty Diagnoses / Procedures Referred By Contact Refer red To Contact Diagnoses Screening for osteoporosis Alisha Kimball MD Procedures DEXA Bone Density Spine/Hip [address] [place] [address] Referral ID Status Reason Start Date Expiration Date Visits V isits Requested Authorized [id number] Incomplete 01/03/2020 04/03/2021 1 1 Reason for Visit Reason Comments ROUTINE HEALTH MAINTENANCE Welcome To Medicare FOLLOW-UP,DIABETES MEDICATION CHECK SKIN LESION left elbow NOISES IN THE EAR ADVANCE DIRECTIVES DISCUSSION pt has one at home Encounter Details Date Type Department Care Team Description 01/03/2020 Office Visit [place] Alisha Bui, Welcome to Medicare preventive visit (Primary Dx); Practice MD Encounter for routine adult health exami nation without abnormal findings; [address] Type 2 diabetes mellitus without complic ation, without long-term current use of insulin (HRC); [place] [address] [place] [address] Essential hypertension; [phone] Paroxysmal atri al fibrillation (HRC); (Work) Screening [...] can you learn more? 1. Go to https://La Miu.ContextPlane/healthlibrary or [address] Stark/24M Technologieslibrary. 2. Enter Y074 in the search box. Current as of: February 22, 2019?Content Version: 12.4 ?? 9669-0580 Pipeline. Care instructions adapted under license by your healthcare professional. If you have questions abouta medical condition or this instruction, always ask your healthcare professional. Pipeline disclaims any warranty or liability for your [...] can you learn more? 1. Go to [email or web address]://La Miu.ContextPlane/Qualtré or [address] Stark/[employer]. 2. Enter K859 in the search box. Current as of: February 22, 2019?Content Version: 12.4 ?? Pipeline. Care instructions adapted under license by your healthcare professional. If you have questions abouta medical condition or this instruction, always ask your healthcare professional. Pipeline disclaims any warranty or liability for your [...] doctor may recommend that you use an ajqu-msu-xojprdz treatment. These include salicylic acid or duct [...] make walking more comfortable. ?? Take an yksk-ubw-lmkalvr pain medicine, such as acetaminophen (Tylenol), ibuprofen [...] can you learn more? 1. Go to https://La Miu.ContextPlane/healthlibrary or [address] Stark/24M Technologieslibrary. 2. Enter K886 in the search box. Current as of: May 03, 2019?Content Version: 12.4 ?? Pipeline. Care instructions adapted under license by your healthcare professional. If you have questions abouta medical condition or this instruction, always ask your healthcare professional. Pipeline disclaims any warranty or liability for your [...] covid-19 in July when she was in [place]. Wart left elbow. No treatment. Patient accompanied [...] IgG Antibody (Inhouse) 8. 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 Gender: female Height [...] Alcohol 3units or more per day (on Isagen):No Currently smoking:No Other pertinent history: Dual-X-ray Absorptiometry [...] osteoporosis. FRAX and Fracture Risk Categories in [facility] [place] of major osteoporotic fracture risk [...] IgG Antibody (Inhouse) (01/03/2020 9:17 AM CDT) [facility] Method Time Signature [id number] Negative Negative 01/03/2020 [facility] G Antibody 3:53 PM CDT LABORATORY Interp SARS CoV-2 0.01 01/03/2020 [facility] IgG Index 3:53 PM CDT LABORATORY SARS The magnitude of 01/03/2020 [facility] CoV-2-IgG the reported 3:53 PM CDT LABORATORY Index Index is not Comment indicative of the amount of antibody present in the patient sample. SARS The SARS-CoV-2 01/03/2020 [facility] CoV-2-IgG IgG assay is 3:53 PM CDT LABORATORY Comment 1 only for use under the Food and Drug Administration's Emergency Use Authorization (EUA). SARS Negative Results 01/03/2020 [facility] CoV-2-IgG do not rule out 3:53 PM CDT LABORATORY Comment 2 SARS-CoV-2 infection, particularly in those who have been in contact with the virus. Follow-up with a molecular diagnostic test should be considered to R/O infection. SARS Results from 01/03/2020 [facility] CoV-2-IgG antibody testing 3:53 PM CDT LABORATORY [...] Organization Address City/State/ZIP Code Phon e Number [facility] [address] [place] [address] Hemoglobin, Blood (01/03/2020 9:17 AM CDT) athologist [facility] [place] Hemoglobin 13.6 12.0 - 15.5 01/03/2020 [place] g/dL 9:20 AM CDT LABORATORY Specimen Anatomical Collection Method / Collection Time Recei dawn Time (Source) Location / Volume Laterality Blood Venipuncture / 01/03/2020 9:17 01/03/2020 9:17 Unknown AM CDT AM CDT Alisha Kimball MD LAB_1 Performing Organization Address City/Special Care [facility]/ZIP Code Phon e Number [facility] [address] [place] [address] (ABNORMAL) ALT (SGPT) (01/03/2020 9:17 AM CDT) athologist Signature ALT (SGPT) 56 (H) 0 - 55 U/L 01/03/2020 [facility] 3:07 PM CDT CENTRAL LAB Specimen Anatomical Collection Method / Collection Time Recei dawn Time (Source) Location / Volume Laterality Blood Venipuncture / 01/03/2020 9:17 01/03/2020 9:17 Unknown AM CDT AM CDT Alisha Kimball MD LAB_1 Performing Organization Address City/Special Care [facility]/ZIP Code Phon e Number [facility] CENTRAL LAB [address] [address] (ABNORMAL) Basic Metabolic Panel (01/03/2020 9:17 AM CDT) [facility] Method Time Signature Sodium 140 136 - 145 01/03/2020 [facility] mmol/L 3:07 PM CDT CENTRAL LAB Potassium 4.8 3.5 - 5.1 01/03/2020 [facility] mmol/L 3:07 PM CDT CENTRAL LAB Chloride 108 98 - 109 01/03/2020 [facility] mmol/L 3:07 PM CDT CENTRAL LAB CO2 21 20 - 29 01/03/2020 [facility] mmol/L 3:07 PM CDT CENTRAL LAB Anion Gap 11 7 - 16 01/03/2020 [facility] mmol/L 3:07 PM CDT CENTRAL LAB Calcium 9.4 8.4 - 01/03/2020 [facility] 10.4 3:07 PM CDT CENTRAL LAB mg/dL BUN 18 7 - 26 01/03/2020 [facility] mg/dL 3:07 PM CDT CENTRAL LAB Creatinine 0.90 0.55 - 01/03/2020 [facility] 1.02 3:07 PM CDT CENTRAL LAB mg/dL GFR, Estimated >60 >60 01/03/2020 [facility] mL/min/1. 3:07 PM CDT CENTRAL LAB 73m2 Glucose 132 (H) 70 - 100 01/03/2020 [facility] mg/dL 3:07 PM CDT CENTRAL [...] Organization Address City/State/ZIP Code Phon e Number [facility] C[facility]TRAL LAB [address] [address] [facility] [address] [place], [place] [address] [phone] (ABNORMAL) Lipid Panel and Direct LDL(If Needed) (01/03/2020 9:17 AM CDT) [facility] Method Time Signature Cholesterol 157 0 [...] CDT CENTRAL LAB Hours Fasting 12 01/03/2020 [place] 3:07 PM CDT LABORATORY Specimen Anatomical Collection Method / Collection Time Recei dawn Time (Source) Location / Volume Laterality Blood Venipuncture / 01/03/2020 9:17 01/03/2020 9:17 Unknown AM CDT AM CDT Alisha Kimball MD LAB_1 Performing Organization Address City/Special Care Hospital/[facility] Phon e Number [facility] CENTRAL LAB [address] [address] [place] [facility] [address] [place] [address] (ABNORMAL) Hgb A1C (01/03/2020 9:17 AM CDT) [facility] gist Method Time Signature Hemoglobin A1C 7.6 (H) <=5.6 % 01/03/2020 [facility] 1:12 PM CDT CENTRAL LAB Specimen Anatomical Collection Method / Collection Time Recei dawn Time (Source) Location / Volume Laterality Blood Venipuncture / 01/03/2020 9:17 01/03/2020 9:17 Unknown AM CDT AM CDT Narrative [facility] C[facility]TRAL LAB - 01/03/2020 1:12 PM CDT For patients not previously diagnosed with diabetes: 5.7-6.4%: Increased risk for diabetes 6.5% and greater: Diagnostic for diabete s For patients diagnosed with diabetes: <8.0%: Goal of therapy for ages 18-75 Clinicians may recommend a higher or low er goal for specific individuals. Alisha Kimball MD LAB_1 Performing Organization Address City/Special Care Hospital/[facility] Phon e Number [facility] CENTRAL LAB [address] [place] [address] documented in this encounter Visit Diagnoses Diagnosis [...] osteoporosis documented in this encounter Care Teams Reverberatory Furnace Operator Relationship Specialty Start Date End Date Alisha Kimball MD PCP - General 07/08/05 [address] [place] [address] documented as of this encounter
--- OUTSIDE RECORDS SUMMARY | 2022-04-13 07:33 | XMS_ITS | Encounter Summary ---
:1955 Author Organization [facility] Address [address] [place] [address] Care Team Providers Name Role Phone Alisha Kimball MD Primary Care Provider Encounter Details Date Type Department Care Team Description 01/03/2020 Lab Visit [facility] Type 2 diabetes mellitus [address] [facility] without complication, [place], [place] [address] without long-term current [phone] use of insulin (HRC) Social History Tobacco [...] Results Microalb/Creat Ratio (01/03/2020 11:20 AM CDT) [facility] Method Time Signature Albumin, 28.6 mg/L 01/03/2020 [facility] Urine, Random 4:36 PM CDT CENTRAL LAB Creatinine, 155 >20 mg/dL 01/03/2020 [facility] Urine, Random 4:36 PM CDT CENTRAL LAB Albumin/Creati 18 <30 mg/g 01/03/2020 [facility] nine Ratio, 4:36 PM CDT CENTRAL LAB Urine, Random Specimen Anatomical Collection Method Collection Time Receive d Time (Source) Location / / Volume Laterality Urine Non-blood 01/03/2020 11:20 01/03/2020 Collection / AM CDT 11:34 AM CDT Unknown Alisha Kimball MD LAB_1 Performing Organization Address City/State/ZIP Code Phon e Number [facility] [address] [address] documented in this encounter Visit Diagnoses Diagnosis Type 2 diabetes mellitus without complic ation, without long-term current use of insulin (HRC) documented in this encounter Care Teams Systems Integrator Relationship Specialty Start Date End Date Alisha Kimball MD PCP - General 07/08/05 [address] [place] [address] documented as of this encounter
--- OUTSIDE RECORDS SUMMARY | 2022-04-13 07:33 | XMS_ITS | Encounter Summary ---
:1955 Author Organization [employer] Address [address] [place] [address] Care Team Providers Name Role Phone Alisha Kimball MD Primary Care Provider Reason for Visit Reason Comments BP CHECK,NURSE IMMUNIZATIONS Encounter Details Date Type Department Care Team Description 04/11/2020 Nursing Visit [facility] ial hypertension; Department Encounter for immunization [address] [place], [place] [address] Social History Tobacco Use [...] can you learn more? 1. Go to [email or web address] or [email or web address]/TonchidotraGrowBLOX. 2. Enter X567 in the search box. Current as of: June 18, 2019?Content Version: 12.4 ?? 2454-0245 Natero. Care instructions adapted under license by your healthcare professional. If you have questions abouta medical condition or this instruction, always ask your healthcare professional. [employer] disclaims any warranty or liability for your [...] disease documented in this encounter Care Teams Airplane Pilot Commercial Relationship Specialty Start Date End Date Alisha Kimball MD PCP - General 07/08/05 [address] [place] [address] documented as of this encounter
--- OUTSIDE RECORDS SUMMARY | 2022-04-13 07:33 | XMS_ITS | Encounter Summary ---
:1955 Author Organization [facility] Address [address] [place] [address] Care Team Providers Name Role Phone Carroll Avalos MD Primary Care Provider Reason for Visit Reason Comments Refill metFORMIN XR (GLUCOPHAGE XR) 500 MG 24 hour release tablet; losartan (COZAAR) 50 MG tablet Encounter Details Date Type Department Care Team Description 02/01/2019 Telephone [facility] Carroll Avalos MD Refill (metFORMIN XR Practice [address] (GLUCOPHAGE XR) 500 MG [address] [place] [address] 24 hour release tablet; [place] [address] losartan (COZAAR) 50 MG [phone] tablet) Social History Tobacco Use Types Packs/Day Years Used Date Smoking Tobacco: Never Smokeless Tobacco: Never Alcohol Use Standard Drinks/Week Comments No 0 (1 standard drink = 0.6 oz pure alcoho l) Sex Assigned at Date Recorded Not on file documented as of this encounter Nursing Notes Anne Dc RN - 02/01/2019 1:16 PM CDT Per standing order Anne Dc RN 02/01/2019, 1:16 PM Interface, Out Surescripts Prov Query - 02/01/2019 11:29 AM CDT losartan (COZAAR) 50 MG tablet Hypertension -> Refill x 12 months, qty: 90, refills: 3 (until due for a(n) Cr check and K check) Last qualifying visit: 12/12/2018 (in [facility]) Next scheduled visit: None Last ordered by CARROLL AVALOS K: 04/27/2018 (280 days ago) QTY: 90, Refills: 2, Sig: take 1 tablet by mouth every day (changed but equivalent) Cr: 1.02 mg/dL on 12/02/2018 K: 4.6 mEq/L on 12/02/2018 Powered by Wiki[employer]PR, Reference: [id number], 02/01/2019 11:29:51 AM Luis Eduardo NOBLE: ARNOLD REFILL RN ([id number]) metFORMIN XR (GLUCOPHAGE XR) 500 MG 24 hour release tablet Metformin -> Refill x 6 months, qty: 360, refills: 1 (until due for an office visit) Last qualifying visit: 12/12/2018 (in [facility]) Next scheduled visit: None Last ordered by CARROLL AVALOS K: 10/24/2018 (100 days ago) QTY: 360, Refills: 0, Sig: take 4 tabletsby mouth daily with breakfast (changed but equivalent) Cr: 1.02 mg/dL on 12/02/2018 Powered by Wiki-PR, Reference: [id number], 02/01/2019 11:29:51 AM CDT, Pool: ARNOLD AMEZQUITA RN ([id number]) Mary De La O - 02/01/2019 11:27 AM CDT Patient needs this sent daniel today. documented in this encounter Plan of Treatment Not on filedocumented as of this encounter Visit Diagnoses Not on filedocumented in this encounter Care Teams Director Of Intelligence Relationship Specialty Start Date End Date Carroll Avalos MD PCP - General 07/08/05 [address] [place] [address] documented as of this encounter
--- OUTSIDE RECORDS SUMMARY | 2022-04-13 07:34 | XMS_ITS | Encounter Summary ---
:1955 Author Organization [employer] Address [address] [place] [address] Care Team Providers Name Role Phone Carroll Kimball MD Primary Care Provider Encounter Details Date Type Department Care Team Description 12/16/[address] [facility] Type 2 diabetes mellitus [address] [facility] without complication, [place], [place] [address] without long-term current [phone] use of insulin (HRC) Social History Tobacco [...] (ABNORMAL) Microalbumin/Creatinine Ratio (12/16/2018 7:55 AM CDT) [facility] Method Time Signature Albumin, 64.8 mg/L 12/16/2018 [facility] Urine, Random 4:17 PM CDT CENTRAL LAB Creatinine, 209 >20 mg/dL 12/16/2018 [facility] Urine, Random 4:17 PM CDT CENTRAL LAB Albumin/Creati 31 (H) <30 mg/g 12/16/2018 [facility] nine Ratio, 4:17 PM CDT CENTRAL LAB Urine, Random Specimen Anatomical Collection Method Collection Time Receive d Time (Source) Location / / Volume Laterality Urine,random 12/16/2018 7:55 AM 9 7:55 CDT AM CDT Carroll Kimball MD LAB_1 Performing Organization Address City/State/ZIP Code Phon e Number [facility] C[facility] [address] [address] documented in this encounter Visit Diagnoses Diagnosis Type 2 diabetes mellitus without complic ation, without long-term current use of insulin (HRC) documented in this encounter Care Teams Line Pilot Relationship Specialty Start Date End Date Carroll Kimball MD PCP - General 07/08/05 [address] [place] [address] documented as of this encounter
--- OUTSIDE RECORDS SUMMARY | 2022-04-13 07:34 | XMS_ITS | Encounter Summary ---
:1955 Author Organization [facility] Address [address] [place] [address] Care Team Providers Name Role Phone Alisha Kimball MD Primary Care Provider Reason for Visit Reason Comments Blood Pressure, low LIGHTHEADEDNESS Encounter Details Date Type Department Care Team Description 09/21/2018 Nurse Triage [facility] Alisha Kimball, Blood Pr essure, low; Practice [facility] [address] [facility]. [address] [place] [address] [place], [place] [phone] [facility] Social History Tobacco Use Types Packs/Day Years Used Date Smoking Tobacco: Never Smokeless Tobacco: Never Alcohol Use Standard Drinks/Week Comments No 0 (1 standard drink = 0.6 oz pure alcoho l) Sex Assigned at Date Recorded Not on file documented as of this encounter Nursing Notes Tara Lozano RN - 09/21/2018 3:48 PM CDT Patient [...] Lozano RN - 09/21/2018 3:22 PM CDT Patient/day care provider request: Input needed ongoing symptoms Specific Request: patient states her B/P has been low like this for months so does not feel she needs SDA and occasional dizziness when first rising in am. She prefers to DC one of her B/P medications.Also to note has lost weight with [facility] weight loss program. Clinician sign order and [...] BP monitor) In S office and at [facility] 4. HISTORY: Do you have a history [...] menstrual period? na Protocols used: LOW BLOOD [id number] Vero Robin - 09/21/2018 3:03 PM CDT Symptoms [Medical Radiation Therapist/Appt Center: If this call is after 3 p.m., communicate to patient: If we are not able to get back to you by the end of the day and your symptoms worsen, please contact the Careline [phone] OR at .] [Medical Radiation Therapist/Appt Center: Refer to Symptoms Indicating Need for [...] you recently been seen for this? No [Medical Radiation Therapist/Appt Center: Add/verify patient preferred pharmacy is highlighted [...] on filedocumented in this encounter Care Teams Product Safety Compliance Leader Relationship Specialty Start Date End Date Alisha Kimball MD PCP - General 07/08/05 [address] [place] [address] documented as of this encounter
--- OUTSIDE RECORDS SUMMARY | 2022-04-13 07:34 | XMS_ITS | Encounter Summary ---
:1955 [address] [facility] Address [address], [place] [address] Care Team Providers Name Role Phone Alisha Kimball MD Primary Care Provider Reason for Visit Reason Comments Dental Hygiene cc Encounter Details Date Type Department Care Team Description 10/11/2018 Office Visit [facility] Regina Guaman [address] [place] [address] Dental Hygiene (cc) Dentistry [place], Exam [address] [place], [place] [address] Social History Tobacco Use [...] induced documented in this encounter Care Teams Arterial Embalmer Relationship Specialty Start Date End Date Alisha Kimball MD PCP - General 07/08/05 [address] [place] [address] documented as of this encounter
--- OUTSIDE RECORDS SUMMARY | 2022-04-13 07:34 | XMS_ITS | Encounter Summary ---
:1955 Author Organization [facility] Address [address] [place] [address] Care Team Providers Name Role Phone Carroll Kimball MD Primary Care Provider Reason for Visit Reason Comments Refill metoprolol succinate (TOPROL -XL) 200 MG 24 hour release tablet [Pharmacy Med Name: METOPROLOL SUCC ER 200 MG TAB] Encounter Details Date Type Department Care Team Description 01/23/2019 Refill [facility] Carroll Kimball MD Refill (metoprolol Practice [address] succinate (TOPROL-XL) [address] [place] [address] 200 MG 24 hour release [place], [place] [address] tablet [Pharmacy Med [phone] Name: MET OPROLOL SUCC ER 200 MG [...] AM CDT Refilled per standing order. Meaghan Birggs RN Interface, Out Surescripts Prov Query - 01/23/2019 7:41 AM CDT metoprolol succinate (TOPROL-XL) 200 MG 24 hour release tablet [Pharmacy Med Name: METOPROLOL SUCC ER 200 MG TAB] Miscellaneous - 12 Month Visit -> Refill x 12 months, qty: 90, refills: 3 (until due for an office visit) Last qualifying visit: 12/12/2018 (in [facility]) Next scheduled visit: None Last ordered by CARROLL KIMBALL: 05/04/2018 (264 days ago) QTY: 90, Refills: 2, Sig: take 1 tablet by mouth daily at bedtime (changed but equivalent) Powered by [employer], Reference: [id number], 01/23/2019 7:41:13 AM CDT, Pool: ARNOLD REFILL RN ([id number]) documented in this encounter Plan of Treatment Not on filedocumented as of this encounter Visit Diagnoses Diagnosis Essential hypertension (HRC) Unspecified essential hypertension documented in this encounter Care Teams Wool Shearing Supervisor Relationship Specialty Start Date End Date Carroll Kimball MD PCP - General 07/08/05 [address] [place] [address] documented as of this encounter
--- OUTSIDE RECORDS SUMMARY | 2022-04-13 07:34 | XMS_ITS | Encounter Summary ---
:1955 Author Organization [facility] Address [address] [place] [address] Care Team Providers Name Role Phone Alisha Kimball MD Primary Care Provider Reason for Visit Reason Comments Ed Discharge Follow-up Encounter Details Date Type Department Care Team Description 09/21/2018 Telephone [facility] Alisha Kimball MD Ed Discharge Follow-up Practice [address] [place] [address] [place] [address] [phone] Social History Tobacco Use Types Packs/Day Years [...] filedocumented in this encounter Care Teams Manager Category Relationship Specialty Start Date End Date Alisha Kimball MD PCP - General 07/08/05 [address] [place] [address] documented as of this encounter
--- OUTSIDE RECORDS SUMMARY | 2022-04-13 07:34 | XMS_ITS | Encounter Summary ---
:1955 Author Organization [facility] Address [address] [place] [address] Care Team Providers Name Role Phone Alisha Kimball MD Primary Care Provider Reason for Visit Reason Comments Lab Orders Needed Encounter Details Date Type Department Care Team Description 11/14/2018 Telephone [facility] Alisha Steinberg MD Lab Orders Needed [address] [place] [address] [place], [place] [id number] (Wo rk) Social History Tobacco Use Types Packs/Day Years Used Date Smoking Tobacco: Never Smokeless Tobacco: Never Alcohol Use Standard Drinks/Week Comments No 0 (1 standard drink = 0.6 oz pure alcoho l) Sex Assigned at Date Recorded Not on file documented as of this encounter Nursing Notes Francesca Cho CMA - 11/14/2018 2:04 PM CDT Labs ordered May Chisholm - 11/14/2018 1:24 PM CDT Is the patient requesting a referral for a provider or clinic outside of our family of care? (Ex. [facility]) No Orders - All Orders [Appt Center: If this call is after 3 p.m., communicate to patient: If we are not able to get back to you by the end of the day and your symptoms worsen please contact the Careline at [phone] OR at .] What order (Lab, Radiology, Specialty, DME, etc) is being requested? Pt requesting A1C labs prior to [facility] on 12/12 Why is this order being requested? Pt wanting to go over lab results at [facility] Have you been seen recently for this concern? No [Appt Center:If patient was seen at an outside location, please obtain records] Is it okay to leave a detailed message on your voicemail? Yes [Appt Center: Instruct patient to check with insurance company for coverage] Is there anything else I can help you with today? May Chisholm documented in this encounter Plan of Treatment Not on filedocumented as of this encounter Results (ABNORMAL) Basic Metabolic Panel (12/02/2018 7:34 AM CDT) [facility] Method Time Signature Sodium 138 136 - 145 12/02/2018 [facility] mmol/L 11:30 AM CDT [facility] Potassium 4.6 3.5 - 5.1 12/02/2018 [facility] mmol/L 11:30 AM CDT [facility] Chloride 104 98 - 109 12/02/2018 [facility] mmol/L 11:30 AM CDT [facility] CO2 26 20 - 29 12/02/2018 [facility] mmol/L 11:30 AM CDT [facility] Anion Gap 8 7 - 16 12/02/2018 [facility] mmol/L 11:30 AM CDT [facility] Calcium 10.0 8.4 - 12/02/2018 [facility] 10.4 11:30 AM CDT [facility] mg/dL BUN 28 (H) 7 - 26 12/02/2018 [facility] mg/dL 11:30 AM CDT [facility] Creatinine 1.02 0.55 - 12/02/2018 [facility] 1.02 11:30 AM CDT [facility] mg/dL GFR, Estimated 58 (L) >60 12/02/2018 [facility] mL/min/1. 11:30 AM CDT [facility]AL [facility] 73m2 GFR, Est If >60 >60 12/02/2018 [facility] mL/min/1. 11:30 AM CDT C[facility]AL [facility] Macedonian 73m2 Glucose 108 (H) 70 - 100 12/02/2018 [facility] mg/dL 11:30 AM CDT [facility] Comment: The given reference range is fo r the fasting state. Non-fasting reference range for glucose is 70 - 180 mg/dL. Hours Fasting 12 12/02/2018 11:30 AM CDT [facility] Specimen Anatomical Collection Method / Collection Time Recei dawn Time (Source) Location / Volume Laterality Blood Venipuncture / 12/02/2018 7:34 12/02/2018 7:34 Unknown AM CDT AM CDT Narrative [facility] - 12/02/2018 11:30 AM CDT [...] Organization Address City/State/ZIP Code Phon e Number [facility] [address] [address] [facility] [address] [place] [address] Lipid Panel and Direct LDL(If Needed) (12/02/2018 7:34 AM CDT) [facility] gist Method Time Signature Cholesterol 167 0 - 199 12/02/2018 [facility] mg/dL 11:30 AM CDT [facility] Triglyceride [...] CDT [facility] Hours Fasting 12 12/02/2018 [facility] 11:30 AM CDT Specimen Anatomical Collection Method / Collection Time Recei dawn Time (Source) Location / Volume Laterality Blood Venipuncture / 12/02/2018 7:34 12/02/2018 7:34 Unknown AM CDT AM CDT Alisha Kimball MD LAB_1 Performing Organization Address [facility] Phon e Number [facility] [address] [address] [facility] [address] [place] [address], [facility] (ABNORMAL) Hgb A1C (12/02/2018 7:34 AM CDT) [facility] gist Method Time Signature Hemoglobin A1C 6.7 (H) <=5.6 % 12/02/2018 [facility] 12:44 PM CDT [facility]AL [facility] Specimen Anatomical Collection Method / Collection Time Recei dawn Time (Source) Location / Volume Laterality Blood Venipuncture / 12/02/2018 7:34 12/02/2018 7:34 Unknown AM CDT AM CDT Narrative [facility] - 12/02/2018 12:44 PM CDT For patients not previously diagnosed with diabetes: 5.7-6.4%: Increased risk for diabetes 6.5% and greater: Diagnostic for diabete s For patients diagnosed with diabetes: <8.0%: Goal of therapy for ages 18-75 Clinicians may recommend a higher or low er goal for specific individuals. Alisha Kimball MD LAB_1 Performing Organization Address City/[facility] Phon e Number [facility] [address] [address] documented in this encounter Visit Diagnoses Diagnosis Type 2 diabetes mellitus without complic ation, without long-term current use of insulin (HRC) - Primary Screening for diabetes mellitus documented in this encounter Care Teams Supervisor Specialty Plant Relationship Specialty Start Date End Date Alisha Kimball MD PCP - General 07/08/05 [address] [place] [address] documented as of this encounter
--- OUTSIDE RECORDS SUMMARY | 2022-04-13 07:34 | XMS_ITS | Encounter Summary ---
:1955 Author Organization [facility] Address [address] [address] Care Team Providers Name Role Phone Alisha Kimball MD Primary Care Provider Reason for Visit Reason Comments Consult, New Patient Diabetes Consult/Transfer Care (Routine) - Closed Specialty Diagnoses / Procedures Referred By Contact Refer red To Contact Diagnoses Type 2 diabetes mellitus without complication, without long-term current use of insulin (HRC) Alisha Kimball MD [address] [facility] [address] Referral ID Status Reason Start Date Expiration Date Visits Requ ested Visits Authorized [id number] Closed 07/26/2018 10/25/2019 1 1 Encounter Details Date Type Department Care Team Description 07/28/2018 Office Visit [facility] [address], Type 2 diabetes Endocrinology Clinic MD mellitus without [address] complication, [place] [address] [place], [place] long-term current use [phone] of insulin (HRC) [phone] (Primary Dx) (Work) Social History Tobacco Use Types Packs/Day Years Used Date Smoking Tobacco: Never Smokeless Tobacco: Never Alcohol Use Standard Drinks/Week Comments No 0 (1 standard drink = 0.6 oz pure alcoho l) Sex Assigned at Date Recorded Not on file documented as of this encounter Last Filed Vital Signs Vital Sign Reading Time Taken Comments Blood Pressure 117/78 07/28/2018 1:09 PM TRANSITIONAL STUDIES INSTRUCTOR Pulse 60 07/28/2018 1:09 PM TRANSITIONAL STUDIES INSTRUCTOR Temperature - - Respiratory Rate - - Oxygen Saturation - - Inhaled Oxygen Concentration - - Weight 84.4 kg (186 lb) 07/28/2018 1:09 PM TRANSITIONAL STUDIES INSTRUCTOR Height 162.6 cm (5' 4) 07/28/2018 1:09 PM TRANSITIONAL STUDIES INSTRUCTOR Body Mass Index 31.93 07/28/2018 1:09 PM TRANSITIONAL STUDIES INSTRUCTOR documented in this encounter Progress Notes Brock [...] 10 -Smoking status: non smoker RTC PRN. Brcok Bolden MD 07/28/2018, 2:45 PM SITIONAL STUDIES INSTRUCTOR Marysol Carey, RN - 07/28/2018 1:15 PM CST Discussed during appointment with Dr. Bolden. Marysol Carey, CAITLYN 07/28/2018, 4:44 PM SITIONAL STUDIES INSTRUCTOR documented in this encounter Nursing Notes Kian Hoffman, [facility] - 07/28/2018 1:15 PM CST How many [...] never used smokeless tobacco. Kian Hoffman CMA SITIONAL STUDIES INSTRUCTOR documented in this encounter Plan of Treatment Not on filedocumented as of this encounter Procedures Procedure Name Priority Date/Time Associated Diagnosis Comme nts HGB A1C,POINT OF Routine 07/28/2018 2:30 PM Type 2 diabetes Re sults for this CARE TRANSITIONAL STUDIES INSTRUCTOR mellitus without procedure a re in complication, the results without long-term section. current use of insulin (HRC) documented in this encounter Results (ABNORMAL) Hgb A1c, Point of Care (07/28/2018 2:30 PM TRANSITIONAL STUDIES INSTRUCTOR) [facility] gist Method Time Signature Point of [...] Volume Laterality 07/28/2018 2:30 PM 9 4:23 TRANSITIONAL STUDIES INSTRUCTOR PM TRANSITIONAL STUDIES INSTRUCTOR Brock Bolden MD LAB_1 Performing Organization Address City/State/ZIP Code Phon e Number [facility] [phone] documented in this encounter Visit Diagnoses Diagnosis Type 2 diabetes mellitus without complic ation, without long-term current use of insulin (HRC) - Primary documented in this encounter Care Teams Storage Architect Relationship Specialty Start Date End Date Alisha Kimball MD PCP - General 07/08/05 [address] [place] [address] documented as of this encounter
--- OUTSIDE RECORDS SUMMARY | 2022-04-13 07:34 | XMS_ITS | Encounter Summary ---
:1955 Author Organization [facility] Address [address] [place] [address] Care Team Providers Name Role Phone Alisha Kimball MD Primary Care Provider Reason for Visit Reason Comments Refill ELIQUIS 5 MG tablet [Pharmac y Med Name: ELIQUIS 5 MG TABLET] Encounter Details Date Type Department Care Team Description 06/12/2018 Refill [facility] Janice Gill , Refill (ELIQUIS 5 MG Cardiology PA-C tablet [Pharmacy Med [address] [place] [address] Name: ELIQUIS 5 [place] [address] TABLET]) [phone] Social History Tobacco Use Types Packs/Day Years [...] encounter. Paula Salcido RN 06/20/2018, 4:45 PM MOLDING PRESS OPERATOR Lyn Payne - 06/16/2018 4:50 PM CST Pt informed. Lyn Payne 06/16/2018, 4:50 PM MOLDING PRESS OPERATOR Alisha Kimball MD - 06/16/2018 4:32 PM CST Done. Alisha Kimball MD MOLDING PRESS OPERATOR Tara Ricketts - 06/16/2018 4:07 PM CST .Patient states Dr. Kimball is supposed to order this and not the structural iron erector. Requesting 90 day supply and is leaving town this Wednesday for a few months. MOLDING PRESS OPERATOR Interface, Out Surescripts Prov Query - 06/12/2018 [...] results. Dallas Nguyen RN 11/26/2017, 12:44 PM MOLDING PRESS OPERATOR Interface, Out Surescripts Prov Query - 06/12/2018 [...] FOR: - COMPLETE BLOOD COUNT Powered by Bababoo, Reference: [id number], 06/12/2018 8:29:39 AM COLD MOLDING PRESS OPERATOR, Pool: Cardiology Refill RN ([id number]) MOLDING PRESS OPERATOR documented in this encounter Plan of Treatment Not on filedocumented as of this encounter Visit Diagnoses Diagnosis Paroxysmal atrial fibrillation (HRC) - P rimary Atrial fibrillation documented in this encounter Care Teams Strategy Manager Relationship Specialty Start Date End Date Alisha Kimball MD PCP - General 07/08/05 [address] [place] [address] documented as of this encounter
--- OUTSIDE RECORDS SUMMARY | 2022-04-13 07:34 | XMS_ITS | Encounter Summary ---
:1955 Author Organization [employer] Address [address] [place] [address] Care Team Providers Name Role Phone Alisha Kimball MD Primary Care Provider Encounter Details Date Type Department Care Team Description 12/02/2018 Lab Visit [facility] Type 2 diabetes mellitus [address] [facility] without complication, [place], [place] [address] without long-term current [phone] use of insulin (HRC) Social History Tobacco [...] Signature Sodium 138 136 - 145 12/02/2018 [facility] mmol/L 11:30 AM CDT CENTRAL LAB Potassium 4.6 3.5 - 5.1 12/02/2018 [facility] mmol/L 11:30 AM CDT C[facility]AL [facility] Chloride 104 98 - 109 12/02/2018 [facility] mmol/L 11:30 AM CDT C[facility]AL [facility] CO2 26 20 - 29 12/02/2018 [facility] mmol/L 11:30 AM CDT [facility] Anion Gap 8 7 - 16 12/02/2018 [facility] mmol/L 11:30 AM CDT C[facility]AL [facility] Calcium 10.0 8.4 - 12/02/2018 [facility] 10.4 11:30 AM CDT C[facility]AL [facility] mg/dL BUN 28 (H) 7 - 26 12/02/2018 [facility] mg/dL 11:30 AM CDT C[facility]AL LAB Creatinine 1.02 0.55 - 12/02/2018 [facility] 1.02 11:30 AM CDT CEN[facility]AL LAB mg/dL GFR, Estimated 58 (L) >60 12/02/2018 [facility] mL/min/1. 11:30 AM T C[facility]AL LAB 73m2 GFR, Est If >60 >60 12/02/2018 [facility] mL/min/1. 11:30 AM CDT CENTRAL LAB Hong [place] 73m2 Glucose 108 (H) 70 - 100 12/02/2018 [facility] mg/dL 11:30 AM T CENTRAL LAB Comment: The given reference range is fo r the fasting state. Non-fasting reference range for glucose is 70 - 180 mg/dL. Hours Fasting 12 12/02/2018 11:30 AM T [facility] Specimen Anatomical Collection Method / Collection Time Recei dawn Time (Source) Location / Volume Laterality Blood Venipuncture / 12/02/2018 7:34 12/02/2018 7:34 Unknown AM CDT AM CDT Narrative [facility] C[facility]TRAL [facility] - 12/02/2018 11:30 AM CDT [...] Kimball MD LAB_1 Performing Organization Address [facility] Phon e Number [facility] [address] [address] [facility] [address] [place], [place] [phone] [address], [place] Lipid Panel and Direct LDL(If Needed) (12/02/2018 7:34 AM CDT) [facility] Method Time Signature Cholesterol 167 0 - [...] CDT [facility]AL [facility] Hours Fasting 12 12/02/2018 [facility] 11:30 AM CDT Specimen Anatomical Collection Method / Collection Time Recei dawn Time (Source) Location / Volume Laterality Blood Venipuncture / 12/02/2018 7:34 12/02/2018 7:34 Unknown AM CDT AM CDT Alisha Kimball MD LAB_1 Performing Organization Address [facility] Phon e Number [facility] [address] [address] [facility] [address] [place] [address], [place] (ABNORMAL) Hgb A1C (12/02/2018 7:34 AM CDT) [facility] Method Time Signature Hemoglobin A1C 6.7 (H) <=5.6 % 12/02/2018 [facility] 12:44 PM CDT [facility]AL [facility] Specimen Anatomical Collection Method / Collection Time Recei dawn Time (Source) Location / Volume Laterality Blood Venipuncture / 12/02/2018 7:34 12/02/2018 7:34 Unknown AM CDT AM CDT Narrative [facility] - 12/02/2018 12:44 PM CDT For patients not previously diagnosed with diabetes: 5.7-6.4%: Increased risk for diabetes 6.5% and greater: Diagnostic for diabete s For patients diagnosed with diabetes: <8.0%: Goal of therapy for ages 18-75 Clinicians may recommend a higher or low er goal for specific individuals. Alisha Kimball MD LAB_1 Performing Organization Address City/State/ZIP Code Phon e Number [facility] [address] [address] documented in this encounter Visit Diagnoses Diagnosis Type 2 diabetes mellitus without complic ation, without long-term current use of insulin (HRC) documented in this encounter Care Teams Steel Box Toe Inserter Relationship Specialty Start Date End Date Alisha Kimball MD PCP - General 07/08/05 [address] [place] [address] documented as of this encounter
--- OUTSIDE RECORDS SUMMARY | 2022-04-13 07:34 | XMS_ITS | Encounter Summary ---
:1955 Author Organization [facility] Address [address] [address] Care Team Providers Name Role Phone Carroll Avalos MD Primary Care Provider Reason for Visit Reason Comments Refill metFORMIN XR (GLUCOPHAGE XR) 500 MG 24 hour release tablet [Pharmacy Med Name: METFORMIN ER 500 MG TABLET] Encounter Details Date Type Department Care Team Description [facility]ill (metFORMIN XR [facility] [address] (GLUCOPHAGE XR) 500 [place] [address] [place] [address] 24 hour release tablet [phone] (Wo rk) [Pharmacy Med Name: METFORMIN ER [...] Cr check) Last qualifying visit: 12/07/2017 (in [facility]) Next scheduled visit: None Last ordered by CARROLL AVALOS K: 07/25/2018 (88 days ago) QTY: 360, Refills: 0, Sig: take 4 tablets by mouth daily with breakfast (unchanged) Cr: 0.86 mg/dL on 11/26/2017 HBA1C: 7.5 % on 07/28/2018 Powered by Electro-LuminX, Reference: [id number], 10/21/2018 12:52:35 AM CDT, Pool: ARNOLD AMEZQUITA RN ([id number]) Interface, Out vLex Query - 10/21/2018 12:52 AM CDT The following lab order(s) may be associated with the Result Note below: AST Notes Recorded by Dallas Nguyen RN on 11/26/2017 at 12:44 PM Letter sent with normal AST/ALT lab results. Dallas Nguyen RN 11/26/2017, 12:44 PM Interface, Out vLex Query - 10/21/2018 12:52 AM CDT The following lab order(s) may be associated with the Result Note below: HGB A1C,POINT OF CARE Notes recorded by Marysol Carey, RN on 07/28/2018 at 4:44 PM ARTIFICIAL GLASS EYE MAKER Discussed during appointment with Dr. Bolden. Marysol Carey RN 07/28/2018, 4:44 PM documented in this encounter Plan of Treatment Not on filedocumented as of this encounter Visit Diagnoses Not on filedocumented in this encounter Care Teams Tunnel Drier Operator Relationship Specialty Start Date End Date Carroll Avalos MD PCP - General 07/08/05 [address] [place] [address] documented as of this encounter
--- OUTSIDE RECORDS SUMMARY | 2022-04-13 07:34 | XMS_ITS | Encounter Summary ---
:1955 Author Organization [facility] Address [address] [place] [address] Care Team Providers Name Role Phone Alisha Kimball MD Primary Care Provider Reason for Visit Reason Comments Consult, New Patient vertigo started sat. went to ER [place] Encounter Details Date Type Department Care Team Description 08/25/2018 Office Visit Specialty Center Margot Sow M D Perceived hearing changes (Primary Dx); [address] Sensorineural hearing loss ( SNHL) of both ears; [address] [place] [address] [place], [place] [phone] [address] Social History Tobacco Use Types Packs/Day [...] clinic with any questions or concerns at [phone], option 3. ETING TECHNOLOGY SPECIALIST documented in this encounter Progress Notes Margot Sow MD - 08/25/2018 10:00 AM CST OTOLARYNGOLOGY NEWPATIENT CHIEF COMPLAINT: Chief Complaint Patient presents with ??? Consult, New Patient [facility] I was asked to see Loc Velasco [...] sensation but she does not have the ggdoa-vd-ghvsk spinning anymore. She said every time she [...] (FLONASE) 50 MCG/ACT nasal solution Place 1 [place] into both nostrils daily. decreaseto 1 spray [...] 90 Tablet 2 ??? neomycin-polymyxin B-hydrocortisone (CORTISPORIN) [id number] ear drop solution 3 Drops 4 times [...] ears H90.3 3. Bilateral impacted cerumen H61.23 [address]6098 Removal Impact Cerumen 1/Both Ears 4. Vertigo [...] software and may contain unintended word substitutions. ETING TECHNOLOGY SPECIALIST documented in this encounter Plan of Treatment Not on filedocumented as of this encounter Visit Diagnoses Diagnosis Perceived hearing changes - Primary Other disorders of ear Sensorineural hearing loss (SNHL) of bot h ears Bilateral impacted cerumen Impacted cerumen documented in this encounter Care Teams Block Operator Relationship Specialty Start Date End Date Alisha Kimball MD PCP - General 07/08/05 [address] [place] [address] documented as of this encounter
--- OUTSIDE RECORDS SUMMARY | 2022-04-13 07:34 | XMS_ITS | Encounter Summary ---
:1955 Author Organization [facility] Address [address] [place] [address] Care Team Providers Name Role Phone Alisha Kimball MD Primary Care Provider Reason for Referral Consult/Transfer Care (Routine) - Closed Specialty Diagnoses / Procedures Referred By Contact Refer red To Contact Diagnoses Essential hypertension (HRC) Alisha Kimball MD [address] [place] [address] Referral ID Status Reason Start Date Expiration Date Visits Requ ested Visits Authorized [id number] Closed 12/12/2018 03/12/2020 1 1 Scheduling Instructions Your provider has recommended an appoint ment to follow up on your high blood pressure. It is best to schedule your ap pointment on the way out of the clinic. If you prefer, you may call your primary ca re clinic or a virtual reality specialist will contact you to assist you in setting up this appointmen t. There are no co-pays for nurse blood pressure checks or medication therapy frankie ceja (clinical pharmacist). Reason for Visit Reason Comments ROUTINE HEALTH MAINTENANCE Encounter Details Date Type Department Care Team Description 12/12/2018 Office Visit [facility] Alisha Kimball Encounte r for routine adult health examination without abnormal findings (Primary Dx); Practice MD Type 2 diabetes mellitus without complic ation, without long-term current use of insulin (HRC); [address] Paroxysmal atrial fibrillation (HRC); [place] [address] [place] [address] Essential hypertension [phone] Social History Tobacco Use Types Packs/Day Years [...] can you learn more? 1. Go to [email or web address]/[email or web address] or Noomeo/Marketecture. 2. Enter Y074 in the search box. Current as of: June 16, 2018 Content Version: 12.0 ?? [id number] Lever. Care instructions adapted under license by your healthcare professional. If you have questions about a medical condition or this instruction, always ask your healthcare professional. Lever disclaims any warranty or liability for your [...] her blood pressure checked every week at [facility] and normal. No medication side effects.Wonders if [...] Not at goal today. Since normal at [facility], continue to watch. She will follow up on the nurse schedule in 2 weeks. 3. Atrial fibrillation. No ongoing symptoms. Continue Eliquis. Alisha Kimball MD documented in this encounter Plan of Treatment Scheduled Referrals Name Type Priority Associated Diagnoses Order S chedule Hypertension Follow Up Referral Routine Essential hyperten bobbi Ordered: 12/12/2018 ([id number]) documented as of this encounter Results (ABNORMAL) Microalbumin/Creatinine Ratio (12/16/2018 7:55 AM CDT) [facility] gist Method Time Signature Albumin, 64.8 mg/L 12/16/2018 [employer] Urine, Random 4:17 PM CDT [facility] Creatinine, 209 >20 mg/dL 12/16/2018 [facility] Quan Urine, Random 4:17 PM CDT [facility] Albumin/Creati 31 (H) <30 mg/g 12/16/2018 [facility] Quan nine Ratio, 4:17 PM CDT [facility] Urine, Random Specimen Anatomical Collection Method Collection Time Receive d Time (Source) Location / / Volume Laterality Urine,random 12/16/2018 7:55 AM 9 7:55 CDT AM CDT Alisha Kimball MD LAB_1 Performing Organization Address City/State/ZIP Code Phon e Number [employer] [facility] [address] [phone] documented in this encounter Visit Diagnoses Diagnosis Encounter for routine adult health exami nation without abnormal findings - Primary Type 2 diabetes mellitus without complic ation, without long-term current use of insulin (HRC) Paroxysmal atrial fibrillation (HRC) Atrial fibrillation Essential hypertension (HRC) Unspecified essential hypertension documented in this encounter Care Teams Budget Consultant Relationship Specialty Start Date End Date Alisha Kimball MD PCP - General 07/08/[address] [place] [address] documented as of this encounter
--- OUTSIDE RECORDS SUMMARY | 2022-04-13 07:34 | XMS_ITS | Encounter Summary ---
:1955 Author Organization [facility] Address [address] [place] [address] Care Team Providers Name Role Phone Alisha Kimball MD Primary Care Provider Reason for Visit Reason Comments DIZZINESS VOMITING Encounter Details Date Type Department Care Team Description 08/21/2018 Nurse Triage Careline Unassigned, DIZZINESS; VOMITING [address] Provider [place], [place] [address] [place] [address] [place] [address] Social History Tobacco Use Types Packs/Day Years [...] right side, vomited. Protocols used: DIZZINESS - [id number] Plan: Pt to be seen in the ER. Pt verbalizes understanding and agrees with plan. Advised patient/caller to call back CareLine if there are further questions or concerns or to be seen if situation becomes emergent. The CareLine is available 25/01. Brandee Granger RN 08/21/2018, 8:34 AM DUCT AND RESERVOIR KEEPER Cheyenne Gutierrez - 08/21/2018 8:21 AM CST Verified patient identity using three identifiers: Yes Caller's relationship to patient: Self At which care system or clinic is the patient normally seen? [facility] Symptoms Describe the reason for call/symptoms (include location and duration if applicable): Last two days have been experiencing dizziness. Feel a little pressure on left side of ear. This morning felt very dizzy, and has vomiting this morning. Plan:Caller transferred directly to CareLine nurse. DUCT AND RESERVOIR KEEPER documented in this encounter Plan of Treatment Not on filedocumented as of this encounter Visit Diagnoses Not on filedocumented in this encounter Care Teams Executive Services Administrator Relationship Specialty Start Date End Date Alisha Kimball MD PCP - General 07/08/05 [address] [place] [address] documented as of this encounter
--- OUTSIDE RECORDS SUMMARY | 2022-04-13 07:34 | XMS_ITS | Encounter Summary ---
:1955 Author Organization [facility] Address [address] [place] [address] Care Team Providers Name Role Phone Alisha Kimball MD Primary Care Provider Encounter Details Date Type Department Care Team Description 08/21/2018 Partner ED External to [facility], Provider DIZZINESS Social History Tobacco Use Types [...] filedocumented in this encounter Care Teams Manager User Experience Relationship Specialty Start Date End Date Alisha Kimball MD PCP - General 07/08/05 [address] [place] [id number] documented as of this encounter
--- OUTSIDE RECORDS SUMMARY | 2022-04-13 07:34 | XMS_ITS | Encounter Summary ---
:1955 Author Organization [facility] Address [address], [place] [address] Care Team Providers Name Role Phone Carroll Avalos MD Primary Care Provider Reason for Visit Reason Comments Refill metFORMIN XR (GLUCOPHAGE XR) 500 MG 24 hour release tablet [Pharmacy Med Name: METFORMIN ER 500 MG TABLET] Encounter Details Date Type Department Care Team Description 07/24/[facility] Refill (metFORMIN XR [facility] [address] (GLUCOPHAGE XR) [address] [place] [address] [place] [address] 24 hour release tablet [phone] (Wo rk) [Pharmacy Med Name: METFORMIN ER 500 MG TABLET]) Social History Tobacco Use Types Packs/Day Years Used Date Smoking Tobacco: Never Smokeless Tobacco: Never Alcohol Use Standard Drinks/Week Comments No 0 (1 standard drink = 0.6 oz pure alcoho l) Sex Assigned at Date Recorded Not on file documented as of this encounter Nursing Notes Anne Neumann, CAITLYN - 07/25/2018 3:13 PM CST per standing order. Anne Neumann RN ERO Interface, Out Surescripts Prov Query - 07/24/2018 8:20 AM CST metFORMIN XR (GLUCOPHAGE XR) 500 MG 24 hour release tablet [Pharmacy Med Name: METFORMIN ER 500 MG TABLET] Diabetes - Biguanides -> HgbA1C is not needed if being used for polycystic ovary treatment -> HBA1C is abnormal (8.2 % is greater than 7.9 %) -> Refill x 3 months (until due for a(n) HBA1C check) Last qualifying visit: 12/07/2017 (in [facility]) Next scheduled visit: None Last ordered by CARROLL AVALOS K: 01/31/2018 (174 days ago) QTY: 360, Refills: 1, Sig: take 4 tabletsby mouth daily with breakfast (unchanged) Cr: 0.86 mg/dL on 11/26/2017 HBA1C: 8.2 % on 05/23/2018 Powered by [employer]Key, Reference: [id number], 07/24/2018 8:19:59 AM ZANJERO, Pool: ARNOLD AMEZQUITA RN ([id number]) ERO Interface, Out Salezeo Prov Query - 07/24/2018 8:20 AM CST The following lab order(s) may be associated with the Result Note below: AST Notes Recorded by Dallas Nguyen RN on 11/26/2017 at 12:44 PM Letter sent with normal AST/ALT lab results. Dallas Nguyen RN 11/26/2017, 12:44 PM ERO documented in this encounter Plan of Treatment Not on filedocumented as of this encounter Visit Diagnoses Not on filedocumented in this encounter Care Teams Account Retention Representative Relationship Specialty Start Date End Date Carroll Avalos MD PCP - General 07/08/05 [address] [place] [address] documented as of this encounter
--- OUTSIDE RECORDS SUMMARY | 2022-04-13 07:34 | XMS_ITS | Encounter Summary ---
:1955 Author Organization [facility] Address [address] [place] [address] Care Team Providers Name Role Phone Alisha Kimball MD Primary Care Provider Reason for Visit Reason Comments Refill Encounter Details Date Type Department Care Team Description 06/16/2018 Telephone [facility] maxi Alisha Kimball MD Refill [address] [facility]. [address] [place] [address] [place], [place] [phone] (Wo rk) Social History Tobacco Use Types Packs/Day Years Used Date Smoking Tobacco: Never Smokeless Tobacco: Never Alcohol Use Standard Drinks/Week Comments No 0 (1 standard drink = 0.6 oz pure alcoho l) Sex Assigned at Date Recorded Not on file documented as of this encounter Nursing Notes Alisha Kimball MD - 06/16/2018 4:44 PM CST Done. Alisha Kimball MD WARE DATABASE ARCHITECT Tara Ricketts - 06/16/2018 4:05 PM CST Eliquis 5 mg.Patient states PCP is supposed to order from now on and not the brush clearer surveying. Resent the Refill request to Dr. Kimball. WARE DATABASE ARCHITECT Francesca Cho CMA - 06/16/2018 3:28 PM CST CA: What prescription is patient requesting a refill on? WARE DATABASE ARCHITECT Francesca Cho CMA - 06/16/2018 3:27 PM CST ----- Message from Rocio Garcia sent at 06/16/2018 3:14 PM SOFTWARE DATABASE ARCHITECT ----- Contact: Melia Patient is calling about their refill request, please complete as soon as possible. Thanks, Rocio Garcia WARE DATABASE ARCHITECT Rocio Garcia - 06/16/2018 3:13 PM CST Patient called to check status of this refill request. [facility] Wednesday06/20/18 WARE DATABASE ARCHITECT documented in this encounter Plan of Treatment Not on filedocumented as of this encounter Visit Diagnoses Not on filedocumented in this encounter Care Teams Cloth Booker Relationship Specialty Start Date End Date Alisha Kimball MD PCP - General 07/08/05 [address] [place] [address] documented as of this encounter
--- OUTSIDE RECORDS SUMMARY | 2022-04-13 07:35 | XMS_ITS | Encounter Summary ---
:1955 Author Organization [employer] Address [address] [place] [address] Care Team Providers Name Role Phone Alisha Kimball MD Primary Care Provider Reason for Visit Reason Comments Problem Focused Exam UR bkn tooth Encounter Details Date Type Department Care Team Description 02/22/2018 Office Visit [facility] Jamaal Cleveland Pro blehollis Focused Exam Dentistry DDS (UR bkn tooth) [address] [place] [phone] Social History Tobacco Use Types Packs/Day Years Used Date Smoking Tobacco: Never Smokeless Tobacco: Never Alcohol Use Standard Drinks/Week Comments No 0 (1 standard drink = 0.6 oz pure alcoho l) Sex Assigned at Date Recorded Not on file documented as of this encounter Progress Notes Jamaal Cleveland DDS - 02/22/2018 2:50 PM CDT DENTAL VISIT NOTE Chief Complaint Patient presents with ??? Problem Focused Exam UR bkn tooth S bkn tooth UR buccal while eating at lunch today, no sens, not chewing on it , no pain. Sharp to tongue and lip is irritated with it. O #5 old DO amalgam intact, BC fx off, above gingival margin, no decay. Neg perc and palpation, perio wnl. PA is wnl. A [place] fx 5, old amalgam, previously noted incomplete fx line on MMR P rec full coverage, discussed risk of endo in future. Offer sed fill today, pat agrees, fuji II LC placed, pat comfortable. rtc crown prep Chart Review ?? Reviewed health history, dental history, problem list, periodontal charting and radiographs with thepatient. Treatment Discussion ?? Today's treatment plan was discussed with the patient ?? Treatment options and prognosis was discussed Patient Consent ?? All questions were answered and the patient gives informed consent Procedures performed at this visit Sedative Hindu ?? Tooth #(s): 5 OB ?? Liner/varnish base used: fuji conditioner ?? Shade used: A2; filling material: glass ionomer fuji II LC Next Visit ?? Next planned visit: crown prep 5 Care was assisted by: Dari Cleveland DDS 02/22/2018, 5:50 PM Completed dental procedures in this visit ??? LIMITED ORAL EVALUATION ??? FILM-PERIAPICAL FIRST ??? 5 HARISH SEDATIVE FILLING documented in this encounter Plan of Treatment Not on filedocumented as of this encounter Procedures Procedure Name Priority Date/Time Associated Diagnosis Comme nts 5 HARISH SEDATIVE FILLING Routine 02/22/2018 3:15 PM CDT Fracture of tooth enamel and dentin FILM-PERIAPICAL FIRST Routine 02/22/2018 3:15 PM CDT Fracture of tooth enamel and dentin documented in this encounter Visit Diagnoses Diagnosis Fracture of tooth enamel and dentin - Pr imary documented in this encounter Care Teams Apprentice Architect Relationship Specialty Start Date End Date Alisha Kimball MD PCP - General 07/08/05 [address] [place] [address] documented as of this encounter
--- OUTSIDE RECORDS SUMMARY | 2022-04-13 07:35 | XMS_ITS | Encounter Summary ---
:1955 Author Organization [facility] Address [address] [place] [address] Care Team Providers Name Role Phone Alisha Kimball MD Primary Care Provider Reason for Visit Reason Comments MEDICATION THERAPY MANAGEMENT Encounter Details Date Type Department Care Team Description 10/25/2017 Office Visit [facility] Kailey Christine Essential hypertension [address] [facility] Meghann, PharmD (Primary Dx) [place], [place] [id number] Social History Tobacco Use Types Packs/Day Years [...] follow up appointments with me please call: [phone]. To leave a phone message for me please call the clinic directly. [facility] at [phone] (stay onthe line -- don't push an option) and leave a message with the medical secretary receptionist. Kailey Christine PharmD documented in this encounter Progress Notes Kailey Christine PharmD - 10/25/2017 7:30 AM CDT Subjective Loc Velasco is a 62 y.o. old female who was referred by [employer] for medication review/education. Pt reports doing well [...] with [place] Pharmacist in 6 months Updated iCouch med list and reviewed medications including indications [...] hypertension documented in this encounter Care Teams Operations Intern Relationship Specialty Start Date End Date Alisha Kimball MD PCP - General 07/08/05 [address] [place] [address] documented as of this encounter
--- OUTSIDE RECORDS SUMMARY | 2022-04-13 07:35 | XMS_ITS | Encounter Summary ---
:1955 Author Organization [facility] Address [address] [place] [address] Care Team Providers Name Role Phone Alisha Kimball MD Primary Care Provider Reason for Visit Reason Comments INJURY, EYE Encounter Details Date Type Department Care Team Description 12/25/2017 Nurse Triage Careline Unknown, Physician INJURY, EYE [address] [place], [place] [address] [place], [place] [address] (Wo rk) Social History Tobacco Use Types [...] last menstrual period? na Protocols used: EYE [id number] Dr. Gino Francisco paged at 12:50 PM Returned page at 1:04 PM Instructed to: Ciprofloxacin 0.3% one drop to affected eye QID for 7 days. Emerson Harris RN - 12/25/2017 12:43 PM CDT Verified patient identity using three identifiers: Yes [facility] [address] Situation/Background (brief explanation of current symptoms/situation): Poked self with fingernail, bleeding on sclera. Diabetes, heart issues, on blood tinner and high blood pressure, several meds Johnna Hunt - 12/25/2017 10:07 AM CDT Verified patient identity using three identifiers: Yes Caller's relationship to patient: Self At which care system or clinic is the patient normally seen? [facility] Symptoms Describe the reason for call/symptoms [...] on filedocumented in this encounter Care Teams Reconciling Clerk Relationship Specialty Start Date End Date Alisha Kimball MD PCP - General 07/08/05 [address] [place] [address] documented as of this encounter
--- OUTSIDE RECORDS SUMMARY | 2022-04-13 07:35 | XMS_ITS | Encounter Summary ---
:1955 Author Organization [facility] Address [address] [place] [address] Care Team Providers Name Role Phone Alisha Kimball MD Primary Care Provider Reason for Visit Reason Comments RESULTS, TEST Dr. Roe requested that we contact the patient to let her know that an order was placed for APAP and a follow up. Voicemail was left for patient to return the call. Encounter Details Date Type Department Care Team Description 08/09/2017 [facility] Jonna Roe , RESULTS, TEST ([facility] MD Roe requested that [address] [place] [address] [place] the [place] [address] [place] [address] to let her know that [phone] (Wo rk) an order was placed for [...] left for patient to return the call. CTURAL WELDER documented in this encounter Plan of Treatment Not on filedocumented as of this encounter Visit Diagnoses Not on filedocumented in this encounter Care Teams Offset Lithographic Press Operator Relationship Specialty Start Date End Date Alisha Kimball MD PCP - General 07/08/05 [address] [place] [address] documented as of this encounter
--- OUTSIDE RECORDS SUMMARY | 2022-04-13 07:35 | XMS_ITS | Encounter Summary ---
:1955 Author Organization [facility] Address [address] [place] [address] Care Team Providers Name Role Phone Alisha Kimball MD Primary Care Provider Reason for Visit Reason Comments Disease Registry Encounter Details Date Type Department Care Team Description 09/28/2017 Telephone [facility] Alisha Steinberg MD Disease Registry [address] [facility]. [address] [place] [address] [place], [place] [phone] (Wo rk) Social History Tobacco Use Types [...] on filedocumented in this encounter Care Teams Perforator Typist Relationship Specialty Start Date End Date Alisha Kimball MD PCP - General 07/08/05 [address] [place] [address] documented as of this encounter
--- OUTSIDE RECORDS SUMMARY | 2022-04-13 07:35 | XMS_ITS | Encounter Summary ---
:1955 Author Organization [facility] Address [address] [place] [address] Care Team Providers Name Role Phone Alisha Kimball MD Primary Care Provider Reason for Visit Reason Comments [facility] 5 Encounter Details Date Type Department Care Team Description 05/31/2018 Office Visit [facility] [place] [address] [place] [address] [facility] [place] Exam Services (5) [address] [place] [address] Social History Tobacco Use Types [...] Loc (63 y.o.) was seen today for [facility] (5) CHART REVIEW Reviewed [...] with resin-modified glass ionomer Radiographs made with mu-ism in place and reviewed. Verified occlusion, contacts, margins, aesthetics and cement removal. Adjusted and polished proximalcontacts, patient comfortable Patient was advised of normal post-operative instructions. NEXT VISIT Next planned visit is prophy. Care was assisted by pablo Cleveland DDS 05/31/2018, 3:49 PM Completed dental procedures in this visit ??? 5 CROWN SEAT --End of Note-- OR INDUSTRIAL ENGINEER documented in this encounter Plan of Treatment Not on filedocumented as of this encounter Procedures Procedure Name Priority Date/Time Associated Diagnosis Comme nts 5 CROWN SEAT Routine 05/31/2018 3:30 PM SENIOR INDUSTRIAL ENGINEER Fracture of tooth enamel and dentin documented in this encounter Visit Diagnoses Diagnosis Fracture of tooth enamel and dentin - Pr imary documented in this encounter Care Teams Vessel Liner Relationship Specialty Start Date End Date Alisha Kimball MD PCP - General 07/08/05 [address] [place] [address] documented as of this encounter
--- OUTSIDE RECORDS SUMMARY | 2022-04-13 07:35 | XMS_ITS | Encounter Summary ---
:1955 Author Organization [facility] Address [address] [place] [address] Care Team Providers Name Role Phone Alisha Kimball MD Primary Care Provider Encounter Details Date Type Department Care Team Description 04/27/2018 Refill Order [facility] Alisha Kimball MD [address] [facility] [address] [facility] [place] [address] [place] [address] (Wo rk) Social History Tobacco [...] to encounter. - LAST QUALIFYING VISIT IN [facility]: 12/07/2017 - NEXT SCHEDULED VISIT: [...] You can schedule your appointment online at [facility] or by calling the appointment center at the phone number listed above. Thank you for choosing [facility]. [facility] Powered by [employer]stone, Reference: [id number], 04/27/2018 1:37:44 AM CDT, Pool: ARNOLD AMEZQUITA RN ([id number]) Interface, Out Quisic Query - 04/27/2018 1:37 AM CDT The [...] Results (ABNORMAL) Hgb A1c (05/23/2018 7:45 AM INSTITUTE SCIENTIST) P athologist Signature Hgb A1c 8.2 (H) [...] Volume Laterality 05/23/2018 7:45 AM 8 7:46 INSTITUTE SCIENTIST AM INSTITUTE SCIENTIST Narrative [facility] - 05/23/2018 2:[address] Performed at [facility], [address] [place] [address] ??[id number] Alisha Kimball MD LAB_1 Performing Organization Address City/State/[facility] Code Phon e Number [facility] [phone] documented in this encounter Visit Diagnoses Diagnosis Encounter for long-term (current) use of medications - Primary Encounter for long-term (current) use of other medications Encounter for long-term (current) use of medications Encounter for long-term (current) use of other medications documented in this encounter Care Teams Blacksmith Assistant Relationship Specialty Start Date End Date Alisha Kimball MD PCP - General 07/08/05 [address] [place] [address] documented as of this encounter
--- OUTSIDE RECORDS SUMMARY | 2022-04-13 07:35 | XMS_ITS | Encounter Summary ---
:1955 Author Organization [employer] Address [address] [place] [address] Care Team Providers Name Role Phone Alisha Kimball MD Primary Care Provider Reason for Visit Reason Comments ROUTINE HEALTH MAINTENANCE Smartset/Labs and urine wer e done last week. Encounter Details Date Type Department Care Team Description 12/07/2017 Office Visit [facility] Alisha Kimball, German r for routine adult health examination without abnormal findings (Primary Dx); Practice MD Type 2 diabetes mellitus without complic ation, without long-term current use of insulin (HRC); [address]; [place] [address] [address] Paroxysmal atrial fibrillation ([facility]); [phone] [place], [place] Screening for H IV (human immunodeficiency virus); [address] Encounter for screening mammogram for ma lignant [...] encounter Patient Instructions Patient InstructionsTammie Francesca Salome, TILE CONDUIT LAYER - 12/07/2017 1:52 PM CDT Images from the original note were not included. For rash: Topicort cream to itchy patches in a thin layer twice daily for 1-2 weeks as needed. Let me know after 7-10 days if this is not helpful or sooner if you are worse. If this does not help, I will have you see a Bow Maker. Well Visit, Women 50 to 65: Care [...] can you learn more? 1. Go to [employer] or [employer]. 2. Enter Y074 in the search box. Current as of: November 17, 2016 Content Version: 11.6 ?? [id number] [employer]. Dermatitis: Care Instructions Your Care Instructions [...] help for plant rashes. ?? Take an [id number] antihistamine, such as diphenhydramine (Benadryl) or loratadine [...] can you learn more? 1. Go to [employer] or [employer]. 2. Enter F270 in the search box. Current as of: April 08, 2017 Content Version: 11.6 ?? [phone] [employer], QA on Request. documented in this encounter Progress Notes Alisha [...] Diagnosis Encounter for routine adult health exami [facility] [place] without abnormal findings - Primary Type 2 [...] mammogram documented in this encounter Care Teams Fabrication Department Supervisor Relationship Specialty Start Date End Date Alisha Kimball MD PCP - General 07/08/05 [address] [place] [address] documented as of this encounter
--- OUTSIDE RECORDS SUMMARY | 2022-04-13 07:35 | XMS_ITS | Encounter Summary ---
:1955 Author Organization [facility] Address [address] [place] [address] Care Team Providers Name Role Phone Alisha Kimball MD Primary Care Provider Reason for Visit Reason Comments Lab Orders Needed Encounter Details Date Type Department Care Team Description 10/12/2017 Telephone [facility] Alisha Steinberg MD Lab Orders Needed [address] [place] [address] [place], [place] [id number] (Wo rk) Social History Tobacco Use Types [...] AM 8 7:33 CDT AM CDT Narrative [facility] - 11/26/2017 12:05 PM CDT Performed at [facility], [address] [place] [address] ??[id number] Alisha Kimball MD LAB_1 Performing Organization Address City/State/ZIP Code Phon e Number [facility] [phone] (ABNORMAL) Hgb A1c (11/26/2017 7:30 AM CDT) [...] - 11/26/2017 12:56 PM CDT Performed at [facility], [address] [place] [address] ??[address] Alisha Kimball MD LAB_1 Performing Organization Address [facility] Phon e Number [facility] [phone] Lipid Panel and Direct LDL(If Needed) (11/26/2017 7:30 AM CDT) [facility] Method Time Signature Hours Fasting 12 hours [...] - 11/26/2017 12:05 PM CDT Performed at [facility], [address] [place] [address] ??[phone] Alisha Kimball MD LAB_1 Performing Organization Address [facility] Phon e Number [facility] [phone] documented in this encounter Visit Diagnoses Diagnosis [...] (HRC) documented in this encounter Care Teams Product Engineering Manager Relationship Specialty Start Date End Date Alisha Kimball MD PCP - General 07/08/05 [address] [place] [address] documented as of this encounter
--- OUTSIDE RECORDS SUMMARY | 2022-04-13 07:35 | XMS_ITS | Encounter Summary ---
:1955 Author Organization [facility] Address [address] [facility] [place] [address] Care Team Providers Name Role Phone Alisha [...] on filedocumented in this encounter Care Teams Mystery Shopper Relationship Specialty Start Date End Date Alisha Kimball MD PCP - General 07/08/[address] [place], [place] [id number] documented as of this encounter
--- OUTSIDE RECORDS SUMMARY | 2022-04-13 07:35 | XMS_ITS | Encounter Summary ---
:1955 Author Organization [facility] Address [address] [facility] [place] [address] Care Team Providers Name Role Phone Alisha Kimball MD Primary Care Provider Encounter Details Date Type Department Care Team Description 09/02/2017 Office Visit [facility] Janice Gill aroxysmal atrial fibrillation (HRC) (Primary Dx); Cardiology EMILY Whipple Heart palpitations; [address] [place] [address] Essential hypertension; [place] [address] TANNER (dyspnea on exertion) [phone] Social History Tobacco Use Types Packs/Day Years Used Date Smoking Tobacco: Never Smokeless Tobacco: Never Alcohol Use Standard Drinks/Week Comments No 0 (1 standard drink = 0.6 oz pure alcoho l) Sex Assigned at Date Recorded Not on file documented as of this encounter Last Filed Vital Signs Vital Sign Reading Time Taken Comments Blood Pressure 147/89 09/02/2017 7:55 AM OPERATIONS ASSISTANT Pulse 64 09/02/2017 7:55 AM OPERATIONS ASSISTANT Temperature - - Respiratory Rate 18 09/02/2017 7:21 AM OPERATIONS ASSISTANT Oxygen Saturation 97% 09/02/2017 7:21 AM OPERATIONS ASSISTANT Inhaled Oxygen Concentration - - Weight 85.3 kg (188 lb) 09/02/2017 7:21 AM OPERATIONS ASSISTANT Height 163.8 cm (5' 4.5) 09/02/2017 7:21 AM OPERATIONS ASSISTANT Body Mass Index 31.77 09/02/2017 7:21 AM OPERATIONS ASSISTANT documented in this encounter Patient Instructions Patient [...] RegardsJanice PA-C You may contact us at: --[facility] scheduling number- [phone] If having symptoms of concern, please ask to speak to a nurse. The program scheduler will have a nurse call you to discuss your concerns. --After hours, contact the CareLine at [phone] or ATIONS ASSISTANT documented in this encounter Progress Notes Janice [...] time we started her on Eliquis for [id number] score of 3. Today, patient reports she [...] to contact me. Janice Gill PA-C 09/02/2017 [facility] Over 50% of the time of this visit was spent face to face with the patient coordinating care and counseling on symptoms, testing, rate vs rhythm control for atrial fibrillation. time clock inspector was over 25 minutes. ATIONS ASSISTANT documented in this encounter Plan of Treatment Not on filedocumented as of this encounter Visit Diagnoses Diagnosis Paroxysmal atrial fibrillation (HRC) - P rimary Atrial fibrillation Heart palpitations Palpitations Essential hypertension (HRC) Unspecified essential hypertension TANNER (dyspnea on exertion) Other dyspnea and respiratory abnormalit y documented in this encounter Care Teams Oncology Account Specialist Relationship Specialty Start Date End Date Alisha Kimball MD PCP - General 07/08/05 [address] [place] [address] documented as of this encounter
--- OUTSIDE RECORDS SUMMARY | 2022-04-13 07:35 | XMS_ITS | Encounter Summary ---
:1955 Author Organization [facility] Address [address] [place] [address] Care Team Providers Name Role Phone Alisha Kimball MD Primary Care Provider Reason for Visit Reason Comments Future Appointments Encounter Details Date Type Department Care Team Description [facility]/20[facility] App[facility]ments [address] [facility] [address] [place] [address] [place] [address] (Wo rk) Social History Tobacco Use Types Packs/Day Years Used Date Smoking Tobacco: Never Smokeless Tobacco: Never Alcohol Use Standard Drinks/Week Comments No 0 (1 standard drink = 0.6 oz pure alcoho l) Sex Assigned at Date Recorded Not on file documented as of this encounter Nursing Notes Francisco Buck - 03/14/2018 9:35 AM CDT MEHRDAD Pt and R/s on 04/25/18 @ 8am with Izaiah Lema. Francisco Buck 03/14/2018, 9:36 AM Francisco Buck - 01/20/2018 11:45 AM CDT LM. Will post pone until February and f/u with trying to keep appt with new MTM provider for the week of that appt. Francisco Buck 01/20/2018, 11:45 AM Tita Escobar - 01/20/2018 9:12 AM CDT Miscellaneous Questions & FYI's [School Counselor: If this call is after 3 p.m., communicate to patient: If we are not able to get back to you by the end of the day and your symptoms worsen please contact the Careline at [phone] at .] Is this a question/concern or an FYI? Question/Concern What is your question or concern? Pt has appt scheduled w/MTM for 04/29/18. Schedule for new MTM is not out yet, but pt doesn't want to lose her appt (Pt states it doesn't have to be that day, but needs to be that week and at [facility].) Routing to Clinic Assistants so that pt can be rescheduled once new MTM's schedule is available. Have you recently been seen for this? No Is it okay to leave a detailed message on your voicemail? Yes Tita Escobar Please route to: None (asset protection detective if unable to handle) documented in this encounter Plan of Treatment Not on filedocumented as of this encounter Visit Diagnoses Not on filedocumented in this encounter Care Teams Quality Control Specialist Relationship Specialty Start Date End Date Alisha Kimball MD PCP - General 07/08/05 [address] [place] [address] documented as of this encounter
--- OUTSIDE RECORDS SUMMARY | 2022-04-13 07:35 | XMS_ITS | Encounter Summary ---
:1955 Author Organization [facility] Address [address] [place] [address] Care Team Providers Name Role Phone Alisha Kimball MD Primary Care Provider Reason for Referral Consult/Transfer Care (Routine) - Closed Specialty Diagnoses / Procedures Referred By Contact Refer red To Contact Diagnoses Psychophysiological insomnia Tomás Oswald MD [address] [place] [address] Referral ID Status Reason Start Date Expiration Date Visits Requ ested Visits Authorized [id number] Closed 08/30/2017 11/29/2018 1 1 Scheduling Instructions [facility] staff will be co ntacting you to schedule your CBT for Insomnia appointment. ATOLOGIST Consult/Transfer Care (Routine) - Closed Specialty Diagnoses / Procedures Referred By Contact Refer red To Contact Diagnoses MARYANNE (obstructive sleep apnea) Tomás Oswald MD [address] [place] [address] Referral ID Status Reason Start Date Expiration Date Visits Requ ested Visits Authorized [id number] Closed 08/30/2017 11/29/2018 1 1 Scheduling Instructions [...] a co-payment, co-insurance and/or deductible. INSURED BY [employer]: If you are in sured by [facility] and plan to use a HP or HP Partner Provider of Dental Orthoti cs, we will request prior authorization for you. You will be notified by [facility] ers Insurance of their decision. If approved and if you plan to use a [employer] Provider of Dental Orthotics, the dental office will contact you to schedule an appointment. If you have not been called, please call one of these clinics where this service is provided [facility] . [facility] (scheduling at [facility] and [place]) [phone]. If you choose to use a non-HP or HP Part ner provider, you will be responsible for working with your dentist and insurance company to obtain prior authorization. [facility]: You will b e responsible for working with your dentist and insurance company to obtain prior au thorization. Today you will be provided with the order for the dental orthotic. Addit ional information will be provided upon request. It may take up to 4 weeks for y our insurance company to make a determination on prior authorization. ATOLOGIST Reason for Visit Reason Comments New Arrival Screening #[address] Roe, neck measures 15 inches. Consult/Transfer Care (Routine) - Closed Specialty Diagnoses / Procedures Referred By Contact Refer red To Contact Diagnoses Obstructive sleep apnea syndrome Jonna Roe MD [address] [place] [address] Referral ID Status Reason Start Date Expiration Date Visits Requ ested Visits Authorized [id number] Closed 08/08/2017 11/07/2018 1 1 Encounter Details Date Type Department Care Team Description 08/30/2017 [facility] Tomás Oswald, MARYANNE (o bstructive sleep apnea) (Primary Dx); [facility] MD Psychophysiological insomnia Clinic [address] [facility] [address] [facility] [place] [address] [phone] Social History Tobacco Use Types Packs/Day Years Used Date Smoking Tobacco: Never Smokeless Tobacco: Never Alcohol Use Standard Drinks/Week Comments No 0 (1 standard drink = 0.6 oz pure alcoho l) Sex Assigned at Date Recorded Not on file documented as of this encounter Last Filed Vital Signs Vital Sign Reading Time Taken Comments Blood Pressure 132/80 08/30/2017 12:43 PM NEONATOLOGIST Pulse 60 08/30/2017 12:43 PM NEONATOLOGIST Temperature 36 ??C (96.8 ??F) 08/30/2017 12:43 PM NEONATOLOGIST Respiratory Rate 12 08/30/2017 12:43 PM NEONATOLOGIST Oxygen Saturation 97% 08/30/2017 12:43 PM NEONATOLOGIST Inhaled Oxygen Concentration - - Weight 83.9 kg (185 lb) 08/30/2017 12:43 PM NEONATOLOGIST Height 162.6 cm (5' 4) 08/30/2017 12:43 PM NEONATOLOGIST Body Mass Index 31.76 08/30/2017 12:43 PM NEONATOLOGIST documented in this encounter Progress Notes Tomás Oswald MD - 08/30/2017 1:00 PM CST Outpatient Sleep Medicine Consultation 08/30/2017 Name: Loc Velasco Age: 62 y.o. Date of : 1955 Date of Consultation: 08/30/2017 Consultation is requested by: Jonna Roe MD [address] [place], [place] [id number] Primary care provider: Alisha Kimball MD Reason [...] (FLONASE) 50 MCG/ACT nasal solution Place 1 [place] into both nostrils daily. decreaseto 1 spray [...] Tomás Oswald MD, PhD Diplomate of the [place] [employer] of [employer]iat[employer] and Neurology Certified in Sleep Medicine, [place] [employer] 08/30/2017 CC: Alisha Kimball MD ATOLOGIST documented in this encounter Plan of Treatment [...] sleep documented in this encounter Care Teams Brokerage Clerk Relationship Specialty Start Date End Date Alisha Kimball MD PCP - General 07/08/05 [address] [place] [address] documented as of this encounter
--- OUTSIDE RECORDS SUMMARY | 2022-04-13 07:35 | XMS_ITS | Encounter Summary ---
:1955 Author Organization [facility] Address [address] [place] [address] Care Team Providers Name Role Phone Carroll Avalos MD Primary Care Provider Reason for Visit Reason Comments Refill atorvastatin (LIPITOR) 10 MG tablet [Pharmacy Med Name: ATORVASTATIN 10 MG TABLET] Encounter Details Date Type Department Care Team Description [facility] Refill (atorvastatin [address] [facility] [address] (LIPITOR) 10 [place] [address] [place] [address] [Pharmacy Med Name: [phone] (Wo rk) ATORVASTATIN 10 MG TABLET]) Social [...] office visit) Last qualifying visit: 12/07/2017 (in [facility]) Next scheduled visit: None Last ordered by CARROLL AVALOS: 01/22/2017 (375 days ago) QTY: 90, Refills: 3, Sig: take one tabletby mouth every day (changed but equivalent) LDL: 96 mg/dL on 11/26/2017 Powered by [employer], Reference: [id number], 02/01/2018 1:04:55 AM CDT, Pool: ARNOLD AMEZQUITA RN ([id number]) Interface, Out Chartboost Query - 02/01/2018 1:04 AM CDT The [...] on filedocumented in this encounter Care Teams Analytical Research Chemist Relationship Specialty Start Date End Date Carroll Avalos MD PCP - General 07/08/05 [address] [place], [place] [id number] documented as of this encounter
--- OUTSIDE RECORDS SUMMARY | 2022-04-13 07:35 | XMS_ITS | Encounter Summary ---
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 [address] [address] [facility] [phone] [place], [place] [id number] Social History Tobacco Use Types Packs/Day Years [...] Presbyopia documented in this encounter Care Teams Reagent Tender Relationship Specialty Start Date End Date Alisha Kimball MD PCP - General 07/08/05 [address] [place] [address] documented as of this encounter
--- OUTSIDE RECORDS SUMMARY | 2022-04-13 07:35 | XMS_ITS | Encounter Summary ---
:1955 [facility] Address [address] [place] [address] Care Team Providers Name Role Phone Alisha Kimball MD Primary Care Provider Reason for Visit Reason Comments Refill metoprolol succinate (TOPROL -XL) 200 MG 24 hour release tablet [Pharmacy Med Name: METOPROLOL SUCC ER 200 MG TAB] Encounter Details Date Type Department Care Team Description 05/04/2018 Refill [facility] Alisha Kimball MD Refill (metoprolol Practice [address] succinate (TOPROL-XL) [address] [place] [address] 200 MG 24 hour release [place], [place] [id number] tablet [Pharmacy Med [phone] Name: MET OPROLOL SUCC ER 200 MG TAB]) Social History Tobacco Use Types Packs/Day Years Used Date Smoking Tobacco: Never Smokeless Tobacco: Never Alcohol Use Standard Drinks/Week Comments No 0 (1 standard drink = 0.6 oz pure alcoho l) Sex Assigned at Date Recorded Not on file documented as of this encounter Nursing Notes Denice Faust RN - 05/04/2018 12:01 PM CDT per standing order Denice Faust RN Interface, Out Surescripts Prov Query - 05/04/2018 11:35 AM CDT metoprolol succinate (TOPROL-XL) 200 MG 24 hour release tablet [Pharmacy Med Name: METOPROLOL SUCC ER 200 MG TAB] Cardiovascular - Beta Blockers -> Refill x 9 months, qty: 90, refills: 2 (until due for an office visit) Last qualifying visit: 12/07/2017 (in [facility]) Next scheduled visit: None Last ordered by BLANCA ALMAGUER S: 05/21/2017 (348 days ago) QTY: 90, Refills: 3, Sig: take 1 tab by mouth daily at bedtime. (changed but equivalent) SBP: 134 mm Hg on 04/25/2018 DBP: 88 mm Hg on 04/25/2018 Heart Rate: 61 bpm on 04/25/2018 Powered by [employer], Reference: [id number], 05/04/2018 11:35:31 AM CDT, Pool: ARNOLD AMEZQUITA RN ([id number]) documented in this encounter Plan of Treatment Not on filedocumented as of this encounter Visit Diagnoses Diagnosis Essential hypertension (HRC) Unspecified essential hypertension documented in this encounter Care Teams Federal Mediator Relationship Specialty Start Date End Date Alisha Kimball MD PCP - General 07/08/05 [address] [place] [address] documented as of this encounter
--- OUTSIDE RECORDS SUMMARY | 2022-04-13 07:35 | XMS_ITS | Encounter Summary ---
:1955 Author Organization [facility] Address [address], [place] [address] Care Team Providers Name Role Phone Carroll Kimball MD Primary Care Provider Reason for Visit Reason Comments Refill amLODIPine (NORVASC) 5 MG ta blet [Pharmacy Med Name: AMLODIPINE BESYLATE 5 MG TAB] Encounter Details Date Type Department Care Team Description 04/28/2018 [facility] Refill (amLODIPine [address] [facility] [address] (NORVASC) 5 [place] [address] [place] [address] [Pharmacy Med Name: [phone] (Wo rk) AMLODIPINE BESYLATE 5 MG TAB]) [...] office visit) Last qualifying visit: 12/07/2017 (in [facility]) Next scheduled visit: None Last ordered by CARROLL KIMBALL: 05/11/2017 (352 days ago) QTY: 90, Refills: 3, Sig: take one tabletby mouth every day (changed but equivalent) SBP: 134 mm Hg on 04/25/2018 DBP: 88 mm Hg on 04/25/2018 Powered by britebill, Reference: [id number], 04/28/2018 1:40:49 AM CDT, Pool: ARNOLD REFILL RN ([id number]) documented in this encounter Plan of Treatment Not on filedocumented as of this encounter Visit Diagnoses Not on filedocumented in this encounter Care Teams Water Trainer Relationship Specialty Start Date End Date Carroll Kimball MD PCP - General 07/08/05 [address] [place] [address] documented as of this encounter
--- OUTSIDE RECORDS SUMMARY | 2022-04-13 07:35 | XMS_ITS | Encounter Summary ---
:1955 Author Organization [employer] Address [address] [place] [address] Care Team Providers Name Role Phone Alisha Kimball MD Primary Care Provider Encounter Details Date Type Department Care Team Description 11/26/2017 Lab Visit [facility] Essential hypertension (Prim levy Dx); [address] [facility] Paroxysmal atrial fibrillati on ([facility]); [place] [address] Controlled type 2 diabetes m ellitus without complication, without long-term current use of insulin ([facility]); [phone] Type 2 diabetes mellitus with hyperosmolarity without coma, without long-term current use of insulin ([facility]) Social History Tobacco Use Types Packs/Day [...] Results Microalb/Creat Ratio (12/02/2017 7:57 AM CDT) [facility] Method Time Signature Albumin, 2.3 mg/L [...] 12/02/2017 1:00 PM C DT Performed at [facility], [address] [place] [address] ??[address] Alisha Kimball MD LAB_1 Performing Organization Address City/State/ZIP Code Phon e Number [facility] [phone] Basic Metabolic Panel (11/26/2017 7:30 AM CDT) [...] 12:05 PM CDT Performed at [facility], [address] [place] [address] ??[address] Alisha Kimball MD LAB_1 Performing Organization Address [facility] Phon e Number [facility] [phone] (ABNORMAL) Hgb A1c (11/26/2017 7:30 AM CDT) [...] 12:56 PM CDT Performed at [facility], [address] [place] [address] ??[address] Alisha Kimball MD LAB_1 Performing Organization Address [facility] Phon e Number [facility] [phone] Lipid Panel and Direct LDL(If Needed) (11/26/2017 [...] 12:05 PM CDT Performed at [facility], [address] [place] [address] ??[address] Alisha Kimball MD LAB_1 Performing Organization Address [facility] Phon e Number [facility] [phone] ALT (SGPT) (11/26/2017 7:30 AM CDT) P athologist Signature ALT (SGPT) 44 0 - 55 U/L [facility] Specimen Anatomical Collection Method Collection Time Receive d Time (Source) Location / / Volume Laterality 11/26/2017 7:30 AM 8 7:33 CDT AM CDT Narrative [facility] - 11/26/2017 12:06 PM CDT Performed at [address] ??[address] Janice Gill PA-C LAB_1 Performing Organization Address [facility] Phon e Number [facility] [phone] AST (11/26/2017 7:30 AM CDT) P athologist Signature AST (SGOT) 26 10 - 40 U/L [facility] Specimen Anatomical Collection Method Collection Time Receive d Time (Source) Location / / Volume Laterality 11/26/2017 7:30 AM 8 7:33 CDT AM CDT Narrative [facility] - 11/26/2017 12:06 PM CDT Performed at [facility], [address] [place] [address] ??[address] Janice S Tainter PA-C LAB_1 Performing Organization Address City/State/ZIP Code Phon e Number [facility] [phone] documented in this encounter Visit Diagnoses Diagnosis [...] ([facility]) documented in this encounter Care Teams Parachute Harness Rigger Relationship Specialty Start Date End Date Alisha Kimball MD PCP - General 07/08/05 [address] [place] [address] documented as of this encounter
--- OUTSIDE RECORDS SUMMARY | 2022-04-13 07:35 | XMS_ITS | Encounter Summary ---
:1955 Author Organization [facility] Address [address] [place] [address] Care Team Providers Name Role Phone Alisha Kimball MD Primary Care Provider Reason for Visit Procedure/Equipment (Routine) - Incomplete Specialty Diagnoses / Procedures Referred By Contact Refer red To Contact Diagnoses Right ear pain Kareen Cohen, CHAVO, Procedures MR Brain W/WO IV Cont MR Brain WO IV Cont COMPILATION CLERK [address] [place] [address] Referral ID Status Reason Start Date Expiration Date Visits V isits Requested Authorized [id number] Incomplete 05/19/2017 08/18/2018 1 1 Encounter Details Date Type Department Care Team Description 06/07/2017 Imaging [facility] Specialty Kareen Cohen, Right ear pain Center MRI CLINICAL STATISTICAL PROGRAMMER, COMPILATION CLERK [address] [place] [address] [place] [address] [phone] (Wo rk) Social History Tobacco Use Types [...] Kareen Cohen APRN, DNP 06/10/2017, 8:19 AM UE AND GROOVE MACHINE OPERATOR documented in this encounter Plan of Treatment Not on filedocumented as of this encounter Procedures Procedure Name Priority Date/Time Associated Diagnosis Comme nts MR BRAIN W/WO IV Routine 06/07/2017 10:01 AM Right ear pain Re sults for this CONT TONGUE AND GROOVE MACHINE OPERATOR procedure are i n the results section. documented in this encounter Results MR Brain W/WO IV Cont (06/07/2017 10:01 AM TONGUE AND GROOVE MACHINE OPERATOR) Anatomical Region Laterality Modality Head Magnetic Resonance Specimen (Source) Anatomical Collection Method Collection Time Re ceived Time Location / / Volume Laterality 06/07/2017 10:01 AM TONGUE AND GROOVE MACHINE OPERATOR Narrative 06/07/2017 12:58 PM TONGUE AND GROOVE MACHINE OPERATOR SPECIALTY CTR II HEAD MRI WITHOUT AND [...] gadobutrol (GADAVIST) 1 Given 06/07/2017 10:03 AM TONGUE AND GROOVE MACHINE OPERATOR 8 mL Right Arm MMOL/ML injection 10 mL 10 mL, Intravenous, ONCE (NON-SCHEDULED), Starting on Wed06/07/17 at 1002, Until Wed06/07/17 at 1003, For 1 dose documented in this encounter Care Teams Stock Analyst Relationship Specialty Start Date End Date Alisha Kimball MD PCP - General 07/08/[address] [place] [address] documented as of this encounter
--- OUTSIDE RECORDS SUMMARY | 2022-04-13 07:35 | XMS_ITS | Encounter Summary ---
:1955 Author Organization [facility] Address [address] [place] [address] Care Team Providers Name Role Phone Alisha Kimball MD Primary Care Provider Encounter Details Date Type Department Care Team Description 05/23/2018 [facility] En[facility] for long-term [address] Harshal Gotti (current) use of [place], [place] [address] medications [phone] Social History Tobacco Use Types Packs/Day Years [...] 7:45 AM Encounter for Results for this CASH POSTING REPRESENTATIVE long-term (current) procedur e are in use of medications the resul ts section. documented in this encounter Results (ABNORMAL) Hgb A1c (05/23/2018 7:45 AM CASH POSTING REPRESENTATIVE) P athologist Signature Hgb A1c 8.2 (H) [...] Volume Laterality 05/23/2018 7:45 AM 8 7:46 CASH POSTING REPRESENTATIVE AM CASH POSTING REPRESENTATIVE Narrative [facility] - 05/23/2018 2:[address] Performed at [facility], [address] [place] [address] ??[phone] Alisha Kimball MD LAB_1 Performing Organization Address City/State/ZIP Code Phon e Number [facility] [phone] documented in this encounter Visit Diagnoses Diagnosis Encounter for long-term (current) use of medications Encounter for long-term (current) use of other medications documented in this encounter Care Teams Marketing Analyst Relationship Specialty Start Date End Date Alisha Kimball MD PCP - General 07/08/05 [address] [place] [address] documented as of this encounter
--- OUTSIDE RECORDS SUMMARY | 2022-04-13 07:35 | XMS_ITS | Encounter Summary ---
:[address] [facility] Address [address] [place] [address] Care Team Providers Name Role Phone Alisha Kimball MD Primary Care Provider Reason for Visit Reason Comments [facility] 5 Encounter Details Date Type Department Care Team Description 05/13/2018 Office Visit [facility] [place] [address] [place] [address] [facility] [place], Exam Services (5) [address] [place] [address] Social History Tobacco Use Types [...] Loc (63 y.o.) was seen today for [facility] (5) CHART REVIEW Reviewed [...] ??? 5 PORCELAIN CROWN --End of Note-- MOTIVE AIRCONDITIONING MECHANIC documented in this encounter Plan of Treatment Not on filedocumented as of this encounter Procedures Procedure Name Priority Date/Time Associated Diagnosis Comme nts 5 PORCELAIN CROWN Routine 05/13/2018 3:01 PM AUTOMOTIVE AIRCONDITIONING MECHANIC Fracture of c rown, enamel, and dentin of tooth without pulp exposure documented in this encounter Visit Diagnoses Diagnosis Fracture of crown, enamel, and dentin of tooth without pulp exposure - Primary documented in this encounter Care Teams Wet Process Miller Relationship Specialty Start Date End Date Alisha Kimball MD PCP - General 07/08/05 [address] [place] [address] documented as of this encounter
--- OUTSIDE RECORDS SUMMARY | 2022-04-13 07:35 | XMS_ITS | Encounter Summary ---
:1955 Author Organization [facility] Address [address] [address] Care Team Providers Name Role Phone Alisha Kimball MD Primary Care Provider Reason for Visit Reason Comments Dental Hygiene none Encounter Details Date Type Department Care Team Description 02/07/2018 Office Visit [facility] Tiffanie Fletcher [address] [place], [place] [id number] Dental Hygiene (none) Dentistry [facility], Exam [address] [place], [place] [id number] Social History Tobacco Use Types Packs/Day Years [...] by the dentist; dental hygienist or dental administrative assistant office manager Specific information about what causes periodontal disease [...] should help you maintain this low risk. [place], we look forward to seeing you at your next visit! Thank you for choosing [facility]. documented in this encounter Progress Notes Janiya Fletcher - 02/07/2018 8:50 AM CDT PROPHY NOTE PROPHY/ASSESSMENT:[id number]::PROPHY NOTE Collaborative Agreement Patient consents to have [...] Primary documented in this encounter Care Teams Hand Striper Relationship Specialty Start Date End Date Alisha Kimball MD PCP - General 07/08/05 [address] [place] [address] documented as of this encounter
--- OUTSIDE RECORDS SUMMARY | 2022-04-13 07:35 | XMS_ITS | Encounter Summary ---
:1955 Author Organization [facility] Address [address] [place] [address] Care Team Providers Name Role Phone Alisha Kimball MD Primary Care Provider Encounter Details Date Type Department Care Team Description 06/07/2017 [facility] Radiology, MRI SAFETY SHEET [address] [facility] Provider [place] [address] Social History Tobacco Use Types Packs/Day Years [...] on filedocumented in this encounter Care Teams Provider Service Representative Relationship Specialty Start Date End Date Alisha Kimball MD PCP - General 07/08/[address] [place], [place] [address] documented as of this encounter
--- OUTSIDE RECORDS SUMMARY | 2022-04-13 07:35 | XMS_ITS | Encounter Summary ---
:1955 Author Organization [facility] Address [address] [place] [address] Care Team Providers Name Role Phone Alisha Kimball MD Primary Care Provider Reason for Visit Reason Comments MEDICATION THERAPY MANAGEMENT Encounter Details Date Type Department Care Team Description 04/25/2018 Office Visit [facility] Izaiah Lema, Type [address] [facility] [place] [address] complication, without [phone] [place], [place] long-term cur rent use [address] of insulin ([facility]C) [phone] (Primary Dx) (Work) Social History Tobacco Use [...] up on diabetes as part of the [facility] program. Last MTM encounter was 6 months [...] 6 months. Rx considerations: add SGLT-2. Updated [employer] med list and reviewed medications including indications with patient. Total time spent with patient 30 minutes. Anne PreciadoD, [facility] Clinical Pharmacist Medication Therapy Management Program Recipient of visit: Patient Medicare CI: no # of DTPs: 1 # of DTPs resolved: 1 documented in this encounter Plan of Treatment Not on filedocumented as of this encounter Visit Diagnoses Diagnosis Type 2 diabetes mellitus without complic ation, without long-term current use of insulin ([facility]) - Primary documented in this encounter Care Teams Quality Auditor Relationship Specialty Start Date End Date Alisha Kimball MD PCP - General 07/08/05 [address] [place] [address] documented as of this encounter
--- OUTSIDE RECORDS SUMMARY | 2022-04-13 07:35 | XMS_ITS | Encounter Summary ---
:1955 Author Organization [facility] Address [address], [place] [address] Care Team Providers Name Role Phone Alisha Kimball MD Primary Care Provider Reason for Referral Consult/Transfer Care (Routine) - Closed Specialty Diagnoses / Procedures Referred By Contact Refer red To Contact Diagnoses Obstructive sleep apnea syndrome Jonna Roe MD [address] [place] [address] Referral ID Status Reason Start Date Expiration Date Visits Requ ested Visits Authorized [id number] Closed 08/08/2017 11/07/2018 1 1 Scheduling Instructions . ER SALES Procedure/Equipment (Routine) - Closed Specialty Diagnoses / Procedures Referred By Contact Refer red To Contact Diagnoses Obstructive sleep apnea syndrome Jonna Roe MD Procedures Positive Airway Pressure - New [address] [place] [address] Referral ID Status Reason Start Date Expiration Date Visits Requ ested Visits Authorized [id number] Closed 08/08/2017 11/07/2018 1 1 ER SALES Reason for Visit Reason Comments SLEEP,DISTURBANCE Procedure/Equipment (Routine) - Closed Specialty Diagnoses / Procedures Referred By Contact Refer red To Contact Diagnoses Sleep disturbance Alvarado Friedman MD [address] [place] [address] Referral ID Status Reason Start Date Expiration Date Visits Requ ested Visits Authorized [id number] Closed 03/30/2017 06/29/2018 1 1 Encounter Details Date Type Department Care Team Description 07/28/2017 Sleep Procedure [facility] Sleep Ob structive sleep apnea Health Center syndrome (Primary Dx) [address] [place] [address] Social History Tobacco Use Types Packs/Day Years [...] 83 kg (183 lb) 07/28/2017 10:09 PM DRIVER SALES Height 162.6 cm (5' 4) 07/28/2017 10:09 PM DRIVER SALES Body Mass Index 31.41 07/28/2017 10:09 PM DRIVER SALES documented in this encounter Patient Instructions Patient InstructionsLuz Marina Esteves - 07/28/2017 7:30 PM CST [facility] Sleep Health Center 1. Your sleep study [...] your sleep procedure. No notes on file ER SALES documented in this encounter Plan of Treatment Scheduled Referrals Name Type Priority Associated Diagnoses Order S chedule SLEEP STUDY RESULTS Referral Routine Obstructive sleep casino cashier ea Ordered: 08/08/2017 (PULM) syndrome documented as of this encounter Procedures Procedure Name Priority Date/Time Associated Diagnosis Comme [facility] SLEEP CENTER TECH - Routine 07/28/2017 9:45 AM Obstructive sle ep Results for this SPLIT NIGHT DRIVER SALES apnea syndrome procedure are in the results section. documented in this encounter Results Sleep Center Tech - Split Night (07/28/2017 9:45 AM DRIVER SALES) [facility] gist Method Time Signature Embla Report Interpreted EMBLA Status CLOVER Specimen (Source) Anatomical Collection Method Collection Time Re ceived Time Location / / Volume Laterality 07/28/2017 9:45 AM DRIVER SALES Jonna Roe MD [facility] Performing Organization Address City/State/ZIP Code Phon e Number [facility] [address] [place] [address] documented in this encounter Visit Diagnoses Diagnosis Obstructive sleep apnea syndrome - Prima ry Obstructive sleep apnea (adult) (pediatr ic) documented in this encounter Care Teams Sas Programmer Analyst Relationship Specialty Start Date End Date Alisha Kimball MD PCP - General 07/08/05 [address] [place] [address] documented as of this encounter
--- OUTSIDE RECORDS SUMMARY | 2022-04-13 07:35 | XMS_ITS | Encounter Summary ---
:1955 Author Organization [facility] Address [address] [place] [address] Care Team Providers Name Role Phone Alisha Kimball MD Primary Care Provider Reason for Referral Procedure/Equipment (Routine) - Incomplete Specialty Diagnoses / Procedures Referred By Contact Refer red To Contact Procedures Alisha Kimball MD MM Mammogram Screening [place] [address] [place] [address] Referral ID Status Reason Start Date Expiration Date Visits V isits Requested Authorized [id number] Incomplete 01/18/2018 04/19/2019 1 1 Reason for Visit Procedure/Equipment (Routine) - Incomplete Specialty Diagnoses / Procedures Referred By Contact Refer red To Contact Procedures Alisha Kimball MD MM Mammogram Screening [place] [address] [place] [address] Referral ID Status Reason Start Date Expiration Date Visits V isits Requested Authorized [id number] Incomplete 01/18/2018 04/19/2019 1 1 Encounter Details Date Type Department Care Team Description 01/18/2018 Imaging [facility] ury Mammography [address] [place] [address] Social History Tobacco Use Types [...] on filedocumented in this encounter Care Teams Lead Press Operator Relationship Specialty Start Date End Date Alisha Kimball MD PCP - General 07/08/05 [address] [place] [address] documented as of this encounter
--- OUTSIDE RECORDS SUMMARY | 2022-04-13 07:35 | XMS_ITS | Encounter Summary ---
:1955 Author Organization [facility] Address [address] [place] [address] Care Team Providers Name Role Phone Alisha Kimball MD Primary Care Provider Encounter Details Date Type Department Care Team Description 07/28/2017 Correspondence [facility] Sleep RH SLEEP QUESTIONNAIRE [address] [address] Social History Tobacco Use Types Packs/Day Years [...] filedocumented in this encounter Care Teams Business Continuity Coordinator Relationship Specialty Start Date End Date Alisha Kimball MD PCP - General 07/08/[address] [place], [place] [address] documented as of this encounter
--- OUTSIDE RECORDS SUMMARY | 2022-04-13 07:35 | XMS_ITS | Encounter Summary ---
:1955 Author Organization [facility] Address [address] [facility] [place] [address] Care Team Providers Name Role Phone Alisha Kimball MD Primary Care Provider Reason for Visit Reason Comments RASH Bilateral front of legs Encounter Details Date Type Department Care Team Description 09/08/[address] [facility] Gonsalo Vernon (Pr imary Dx) Practice NAMRATA Johnson [address] [place], [place] [address] [place], [place] [phone] [address] Social History Tobacco Use Types Packs/Day Years Used Date Smoking Tobacco: Never Smokeless Tobacco: Never Alcohol Use Standard Drinks/Week Comments No 0 (1 standard drink = 0.6 oz pure alcoho l) Sex Assigned at Date Recorded Not on file documented as of this encounter Last Filed Vital Signs Vital Sign Reading Time Taken Comments Blood Pressure 132/92 09/08/2017 8:42 AM TANK ASSEMBLER Pulse 60 09/08/2017 8:42 AM TANK ASSEMBLER Temperature - - Respiratory Rate 20 09/08/2017 8:42 AM TANK ASSEMBLER Oxygen Saturation - - Inhaled Oxygen Concentration - - Weight - - Height - - Body Mass Index - - documented in this encounter Patient Instructions Patient InstructionsAlex Vernon MBBS - 09/08/2017 8:40 AM TANK ASSEMBLER Images from the original note were not [...] interferes with your normal activities, take an gwxj-lxh-fmszngt antihistamine, such as diphenhydramine (Benadryl) or loratadine [...] can you learn more? 1. Go to [employer] or [employer]. 2. Enter U711 in the search box. Current as of: April 16, 2016 Content Version: 11.5 ?? [phone] [employer]. Hives: Care Instructions Your Care Instructions [...] area to relieve itching. ?? Take an yhln-vix-ufjzgdw antihistamine, such as diphenhydramine (Benadryl), cetirizine (Zyrtec), [...] can you learn more? 1. Go to [employer] or [employer]. 2. Enter K772 in the search box. Current as of: September 21, 2016 Content Version: 11.5 ?? [id number] [employer]. ASSEMBLER documented in this encounter Progress Notes Alex [...] more than 3 weeks at a time. Hmxs-mri-pblnlgm antihistamines to help with the itching. Cool compresses, cool to lukewarm showers. Follow up if there is no improvement over the next 1-2 weeks or worsening of symptoms. Follow up for any evidence of infection or new symptoms. Patient verbalizes understanding and agrees to plan. Please see orders and patient instructions NAMRATA Sharp ASSEMBLER documented in this encounter Plan of Treatment Not on filedocumented as of this encounter Visit Diagnoses Diagnosis Rash - Primary Rash and other nonspecific skin eruption documented in this encounter Care Teams Public Health Registrar Relationship Specialty Start Date End Date Alisha Kimball MD PCP - General 07/08/05 [address] [place] [address] documented as of this encounter
--- OUTSIDE RECORDS SUMMARY | 2022-04-13 07:35 | XMS_ITS | Encounter Summary ---
:1955 Author Organization [facility] Address [address] [place] [address] Care Team Providers Name Role Phone Alisha Kimball MD Primary Care Provider Encounter Details Date Type Department Care Team Description 12/02/2017 Notes/Orders [facility] [place], Type 2 diabetes mellitus [address] [facility] Erendira [place] [address] without coma, without [phone] [place] [address] insulin ([facility]) Social History Tobacco Use Types [...] long-term sect ion. current use of insulin ([facility]) documented in this encounter Results Microalb/Creat Ratio (12/02/2017 7:57 AM CDT) [facility] gist Method Time Signature Albumin, 2.3 mg/L [facility] Creatinine,Ur 46 mg/dl [facility] Alb/Creat 5 <30 mg/g [facility] Ratio, Urine, creatinine [facility] Specimen Anatomical Collection Method Collection Time Receive d Time (Source) Location / / Volume Laterality Urine specimen 12/02/2017 7:57 AM 018 7:58 (specimen) CDT AM CDT Narrative [facility] - 12/02/2017 1:00 PM C DT Performed at [facility], [address] [place] [phone] Alisha Kimball MD LAB_1 Performing Organization Address City/State/ZIP Code Phon e Number [facility] [phone] documented in this encounter Visit Diagnoses Diagnosis Type 2 diabetes mellitus with hyperosmol arity without coma, without long-term current use of insulin ([facility]) documented in this encounter Care Teams Media Reporter Relationship Specialty Start Date End Date Alisha Kimball MD PCP - General 07/08/05 [address] [place] [address] documented as of this encounter
--- OUTSIDE RECORDS SUMMARY | 2022-04-13 07:35 | XMS_ITS | Encounter Summary ---
:1955 Author Organization [facility] Address [address] [address] Care Team Providers Name Role Phone Alisha Kimball MD Primary Care Provider Reason for Visit Reason Comments Broken Tooth Encounter Details Date Type Department Care Team Description 02/22/2018 Telephone [facility] Unassigned, Provider Broken Tooth Dentistry [address] [place] [address] Social History Tobacco Use Types Packs/Day Years [...] causing your problem? [] Accident [] Lost Moravian [x] Broken Tooth [] Chipped Tooth [] [...] on filedocumented in this encounter Care Teams Clinical Trial Leader Relationship Specialty Start Date End Date Alisha Kimball MD PCP - General 07/08/05 [address] [place] [address] documented as of this encounter
--- OUTSIDE RECORDS SUMMARY | 2022-04-13 07:35 | XMS_ITS | Encounter Summary ---
:1955 Author Organization [facility] Address [address], [place] [address] Care Team Providers Name Role Phone Alisha Kimball MD Primary Care Provider Reason for Visit Reason Comments Dental Exam none Dental Hygiene Encounter Details Date Type Department Care Team Description 09/17/2017 Office Visit [facility] Travis Turner Denta l Exam (none); Dentistry [facility] Dental Hygiene [address] [facility] 103 [facility] 103 [place] [address] [place], [place] [id number] Social History Tobacco Use Types Packs/Day Years [...] should help you maintain this low risk. [place], we look forward to seeing you at your next visit! Thank you for choosing [facility]. documented in this encounter Progress Notes Travis Turner RDH - 09/17/2017 2:00 PM CDT PROPHY NOTE PROPHY/ASSESSMENT:[id number]::PROPHY NOTE Presentation ?? Oral Hygiene: normal ?? [...] ORAL EVALUATION Chief Complaint: Treatment Options: ??? [id number] Montse Leblanc DDS - 09/17/2017 2:00 PM [...] Name Priority Date/Time Associated Diagnosis Comme nts [id number] Routine 09/17/2017 2:54 PM CDT Chronic charlie odontitis, localized, slight PERIODIC ORAL Routine 09/17/2017 2:54 PM CDT Chronic periodont itis, EVALUATION localized, slight PROPHYLAXIS-ADULT Routine 09/17/2017 2:54 PM CDT Chronic perio dontitis, RECALL localized, slight 20 EXISTING ROOT CANAL Routine 10/02/2011 11:00 PM TREATMENT CDT 15 EXISTING PFM CROWN Routine 07/09/2009 12:00 AM MASTER OCEAN YACHT 19 EXISTING PFM CROWN Routine 07/09/2009 12:00 AM MASTER OCEAN YACHT 20 EXISTING PFM CROWN Routine 07/09/2009 12:00 AM MASTER OCEAN YACHT 5 DO EXISTING AMALGAM Routine 07/09/2009 12:00 AM FILLING MASTER OCEAN YACHT 21 DO EXISTING AMALGAM Routine 07/09/2009 12:00 AM FILLING MASTER OCEAN YACHT 13 DO EXISTING AMALGAM Routine 07/09/2009 12:00 AM FILLING MASTER OCEAN YACHT 2 MO EXISTING AMALGAM Routine 07/09/2009 12:00 AM FILLING MASTER OCEAN YACHT 2 L EXISTING AMALGAM Routine 07/09/2009 12:00 AM FILLING MASTER OCEAN YACHT 4 MOD EXISTING AMALGAM Routine 07/09/2009 12:00 AM FILLING MASTER OCEAN YACHT 29 O EXISTING AMALGAM Routine 07/09/2009 12:00 AM FILLING MASTER OCEAN YACHT documented in this encounter Visit Diagnoses Diagnosis Chronic periodontitis, localized, slight - Primary Gingivitis, chronic, non-plaque induced Chronic gingivitis, non-plaque induced Fractured dental pentecostalism with loss o f material Fractured dental restorative material wi th loss of material Tooth fracture Open wound of tooth (broken) (fractured) (due to trauma), without mention of complication Visit for periodic health examination Unspecified general medical examination Pulp necrosis Necrosis of dental pulp Tooth sensitivity Other specified diseases of hard tissues of teeth Open margin on tooth pentecostalism Open pentecostalism margins Caries of dentin Dental caries extending into dentine Periodontal disease Unspecified gingival and periodontal dis ease documented in this encounter Care Teams Physical Therapist Technician Relationship Specialty Start Date End Date Alisha Kimball MD PCP - General 07/08/05 [address] [place] [address] documented as of this encounter
--- OUTSIDE RECORDS SUMMARY | 2022-04-13 07:35 | XMS_ITS | Encounter Summary ---
:1955 Author Organization [facility] Address [address] [place] [address] Care Team Providers Name Role Phone Carroll Avalos MD Primary Care Provider Reason for Visit Reason Comments Refill losartan (COZAAR) 50 MG tabl et [Pharmacy Med Name: LOSARTAN POTASSIUM 50 MG TAB] Encounter Details Date Type Department Care Team Description [facility] Refill (losartan [address] [facility] [address] (COZAAR) 50 [place] [address] [place] [address] [Pharmacy Med Name: [phone] (Wo rk) LOSARTAN POTASSIUM 50 MG TAB]) Social History Tobacco Use Types Packs/Day Years Used Date Smoking Tobacco: Never Smokeless Tobacco: Never Alcohol Use Standard Drinks/Week Comments No 0 (1 standard drink = 0.6 oz pure alcoho l) Sex Assigned at Date Recorded Not on file documented as of this encounter Nursing Notes Shanta Paez RN - 04/27/2018 3:38 PM CDT Per standing order Shanta Paez RN Interface, Out Surescripts Prov Query - 04/27/2018 1:37 AM CDT losartan (COZAAR) 50 MG tablet [Pharmacy Med Name: LOSARTAN POTASSIUM 50 MG TAB] Cardiovascular - Angiotensin II Receptor Blockers -> Refill x 9 months, qty: 90, refills: 2 (until due for a(n) Cr check and K check) Last qualifying visit: 12/07/2017 (in [facility]) Next scheduled visit: None Last ordered by CARROLL AVALOS K: 05/11/2017 (351 days ago) QTY: 90, Refills: 3, Sig: take one tabletby mouth every day (changed but equivalent) SBP: 134 mm Hg on 04/25/2018 DBP: 88 mm Hg on 04/25/2018 Cr: 0.86 mg/dL on 11/26/2017 K: 4.3 mEq/L on 11/26/2017 Powered by Prifloat, Reference: [id number], 04/27/2018 1:37:43 AM CDT, Pool: ARNOLD AMEZQUITA RN ([id number]) Interface, Out [email or web address] Query - 04/27/2018 1:37 AM CDT The [...] on filedocumented in this encounter Care Teams Large Animal Veterinarian Relationship Specialty Start Date End Date Carroll Avalos MD PCP - General 07/08/05 [address] [place] [address] documented as of this encounter
--- OUTSIDE RECORDS SUMMARY | 2022-04-13 07:36 | XMS_ITS | Encounter Summary ---
:1955 Author Organization [facility] Address [address] [place] [address] Care Team Providers Name Role Phone Alisha Kimball MD Primary Care Provider Reason for Referral Procedure/Equipment (Routine) - Incomplete Specialty Diagnoses / Procedures Referred By Contact Refer red To Contact Diagnoses Left foot pain Izaiah Rouse DPM Procedures XR Foot Lt AP/Lat/MO/LO 4Vws [address] [place] [address] Referral ID Status Reason Start Date Expiration Date Visits V isits Requested Authorized [id number] Incomplete 01/22/2017 04/23/2018 1 1 Reason for Visit Consult/Transfer Care (Routine) - Closed Specialty Diagnoses / Procedures Referred By Contact Refer red To Contact Diagnoses Alisha Hamilton MD [address] [place] [address] Referral ID Status Reason Start Date Expiration Date Visits Requ ested Visits Authorized [id number] Closed 12/07/2016 03/08/2018 1 1 Encounter Details Date Type Department Care Team Description 01/22/2017 Office Visit [facility] [place], [place] fo ot pain (Primary Dx); [facility] Izaiah Barker DPM Hallux valgus, left; 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 [address] Social History Tobacco Use Types Packs/Day [...] questions or concerns, please contact us at [phone]. For felt metatarsal pads or foam toe separators: www.Praccel www.Sift Co. Dr. Osullivan's [facility] medical centerOmnisoft Services catalog www.CGTrader PediFix www.DrugSupplyStore.Buzzwire Bunion (hallux abducto valgus) A bunion is [...] your condition, please visit these accredited websites: [employer] http://www.acfas.org [employer] http://www.apma.org/ BUNION What is [...] high heels ?? Pain during activities ?? [place] in between the big toe and second toe ?? Callous formation on the side or bottom of the big toe or big toe joint ?? Callous under the second toe joint (2nd MTPJ) ?? Pain in the second toe joint Diagnosis/Tests (Exam) Your foot doctor (ab initio etl developer) will ask you questions about the symptoms you are having while examining your foot. You will also probably be asked to stand and walk barefoot to further assess your foot function. The presence of a bunion is usually obvious, but sometimes there is more going on that ariel bunion, so your ab initio etl developer will usually take an x-ray. The ab initio etl developer will measure angles between the bones to [...] procedures to repair bunions. 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
--- OUTSIDE RECORDS SUMMARY | 2022-04-13 07:36 | XMS_ITS | Encounter Summary ---
:1955 Author Organization [facility] Address [address] [facility] [address] Care Team Providers Name Role Phone Alisha Kimball MD Primary Care Provider Reason for Referral Procedure/Equipment (Routine) - Incomplete Specialty Diagnoses / Procedures Referred By Contact Refer red To Contact Diagnoses Syncope, unspecified syncope type Torey Norton MD Procedures NM Card Exercise Rest/Stress Spect [address] [place] [id number] Referral ID Status Reason Start Date Expiration Date Visits V isits Requested Authorized [id number] Incomplete 03/04/2017 06/03/2018 6 6 Procedure/Equipment (Routine) - Closed Specialty Diagnoses / Procedures Referred By Contact Refer red To Contact Diagnoses Syncope, unspecified [place] [address] [place], [place] [address] Referral ID Status Reason Start Date Expiration Date Visits Requ ested Visits Authorized [id number] Closed 03/04/2017 06/03/2018 1 1 Scheduling Instructions You will be contacted within a week by bk cárdenas regarding your monitor supply chain coordinator. This recommended service may not be cove red by your insurance coverage. We suggest you call your health insurance company a bout your coverage and benefits for this appointment. Reason for Visit Reason Comments LIGHTHEADEDNESS Encounter Details Date Type Department Care Team Description 03/04/2017 Office Visit [facility] Torey Norton Syncope, unspecified syncope type (Primary Dx); Rakesh Sosa MD Diabetes mellitus, type 2 ([facility]) [address] [facility] [address] [place] [address] [phone] Social History Tobacco Use Types Packs/Day Years [...] (primary encounter diagnosis) Plan: ECG 12-LEAD ROUTINE [[id number]], Complete Blood Count-No Diff, Basic Metabolic Panel, [...] Norton MD RAD NM ECG 12-LEAD ROUTINE [[id number]] (03/04/2017 9:40 AM CDT) P athologist Signature Ventricular Rate 75 BPM [facility] Atrial Rate 75 BPM [facility] P-R Interval 150 ms [facility] QRS Duration 86 ms [facility] QT 394 ms [facility] QTc 439 ms [facility] P [place] 55 degrees MUSE [facility] R [place] 37 degrees M[facility] T [place] 39 degrees [facility] Specimen (Source) Anatomical Collection Method Collection Time Re ceived Time Location / / Volume Laterality 03/04/2017 9:40 AM CDT Narrative [facility] - 03/12/2017 11:27 AM CDT Sinus rhythm with Premature atrial complexes Otherwise normal ECG No previous ECGs available Confirmed by MD NORTON MARVIN G ([id number]), KIARA Nunez ([id number]) on 03/12/2017 11:27:44 AM Procedure Note Torey Norton MD - 03/12/2017Form atting of this note might be different from the original. Sinus rhythm with Premature atrial compl exes Otherwise normal ECG No previous ECGs available Confirmed by MD NORTON MARVIN G ([id number]), KIARA Nunez ([id number]) on 03/12/2017 11:27:44 AM Torey Norton MD [...] 03/04/2017 3:36 PM C DT Performed at [facility], [address] [place] [id number] Torey Norton MD LAB_1 Performing Organization Address City/State/ZIP Code Phon e Number [facility] [phone] Basic Metabolic Panel (03/04/2017 9:26 AM CDT) [...] 03/04/2017 3:55 PM C DT Performed at [address] ??[address] Torey Norton MD LAB_1 Performing Organization Address City/State/ZIP Code Phon e Number [facility] [phone] Complete Blood Count-No Diff (03/04/2017 9:26 AM [...] 03/04/2017 4:02 PM C DT Performed at [facility], [address] [place] [address] ??[id number] Torey Norton MD LAB_1 Performing Organization Address City/State/ZIP Code Phon e Number [facility] [phone] documented in this encounter Visit Diagnoses Diagnosis [...] type documented in this encounter Care Teams Human Resources Trainer Relationship Specialty Start Date End Date Alisha Kimball MD PCP - General 07/08/05 [address] [place] [address] documented as of this encounter
--- OUTSIDE RECORDS SUMMARY | 2022-04-13 07:36 | XMS_ITS | Encounter Summary ---
:1955 Author Organization [facility] [address] [place] [address] Care Team Providers Name Role Phone Alisha Kimball MD Primary Care Provider Reason for Visit Procedure/Equipment (Routine) - Closed Specialty Diagnoses / Procedures Referred By Contact Refer red To Contact Diagnoses Syncope, unspecified [place] [address] [place], [place] [address] Referral ID Status Reason Start Date Expiration Date Visits Requ ested Visits Authorized [id number] Closed 03/04/2017 06/03/2018 1 1 Encounter Details Date Type Department Care Team Description 03/19/2017 Office Visit [facility] Cardiac Non-Invasive Lab [address] [place] [address] Social History Tobacco Use Types Packs/Day Years [...] on filedocumented in this encounter Care Teams Fire Fighter [employer] Relationship Specialty Start Date End Date Alisha Kimball MD PCP - General 07/08/[address] [place], [place] [id number] documented as of this encounter
--- OUTSIDE RECORDS SUMMARY | 2022-04-13 07:36 | XMS_ITS | Encounter Summary ---
:1955 Author Organization [employer] Address [address] [facility] [address] Care Team Providers Name Role Phone Alisha Kimball MD Primary Care Provider Reason for Visit Reason Comments Ear Pain right ear pain, liquid in ea r Encounter Details Date Type Department Care Team Description 05/19/2017 Office Visit [facility] Kareen Cohen, Diabete s mellitus, type 2 (HRC) (Primary Dx); Practice ISI TONY OME (otitis media with effusion), right; [address] Impacted cerumen of right ear; [place] [address] [place], [place] Encounter for immunization [phone] [id number] Social History Tobacco Use Types Packs/Day Years Used Date Smoking Tobacco: Never Smokeless Tobacco: Never Alcohol Use Standard Drinks/Week Comments No 0 (1 standard drink = 0.6 oz pure alcoho l) Sex Assigned at Date Recorded Not on file documented as of this encounter Last Filed Vital Signs Vital Sign Reading Time Taken Comments Blood Pressure 148/100 05/19/2017 2:27 PM JAVA SOFTWARE ENGINEER Pulse 68 05/19/2017 2:27 PM JAVA SOFTWARE ENGINEER Temperature - - Respiratory Rate - - Oxygen Saturation - - Inhaled Oxygen Concentration - - Weight 83 kg (183 lb) 05/19/2017 2:27 PM JAVA SOFTWARE ENGINEER Height - - Body Mass Index 31.41 04/22/2017 3:56 PM CDT documented in this encounter Patient Instructions Patient InstructionsKareen Cohen, CHAVO, RADHA - 05/19/2017 2:20 PM JAVA SOFTWARE ENGINEER Images from the original note were not [...] can you learn more? 1. Go to [employer] or Erly/Vatler. 2. Enter S930 in the search box. Current as of: January 31, 2016 Content Version: 11.3 ?? [id number] [employer], [employer] SOFTWARE ENGINEER documented in this encounter Progress Notes Norma Lainez, GROUP EXERCISE MANAGER - 05/19/2017 3:04 PM CST S: Patient has cerumen impaction. States has been using ear wax softening agent No. O: Cerumen observed in right ear canal(s). A: Patient history has been obtained. Kareen Cohen reviewed history, assessed ears and placed order for ear lavage. P: Right ear lavaged with tap water. some of the cerumen was removed. Norma Lainez CMA 05/19/2017, 3:03 PM SOFTWARE ENGINEER Kareen Cohen, CHAVO, RADHA - 05/19/2017 2:20 [...] (FLONASE) 50 MCG/ACT nasal solution; Place 1 [place] into both nostrils daily. decrease to 1 [...] that it can last several weeks. Avoid raps-wmppcazbq-sicgxlbovtrswaj combinations products due to blood pressure. I think the intermittent sharp ear pain might represent a trigeminal neuralgia. If this persists, she should follow up with primary and consider an MRI of the brain. She verbalizes understanding and agrees with plan of care. Kareen Cohen APRN, DNP 05/19/2017, 4:25 PM SOFTWARE ENGINEER documented in this encounter Plan of [...] disease documented in this encounter Care Teams Tool And Die Maker Relationship Specialty Start Date End Date Alisha Kimball MD PCP - General 07/08/05 [address] [place] [address] documented as of this encounter
--- OUTSIDE RECORDS SUMMARY | 2022-04-13 07:36 | XMS_ITS | Encounter Summary ---
:1955 Author Organization [facility] Address [address] [place] [address] Care Team Providers Name Role Phone Alisha Kimball MD Primary Care Provider Reason for Visit Reason Onset Date Comments ERRONEOUS ENTRY 01/22/2017 elisaamlod Encounter Details Date Type Department Care Team Description 01/22/2017 Refill [facility] Alisha Kimball MD ERRONEOUS ENTRY Practice [address] [facility] (ator,amlod) [address] [place] [address] [place] [address] [phone] Social History Tobacco Use Types Packs/Day Years [...] on filedocumented in this encounter Care Teams Patent Leather Sorter Relationship Specialty Start Date End Date Alisha Kimball MD PCP - General 07/08/05 [address] [place] [address] documented as of this encounter
--- OUTSIDE RECORDS SUMMARY | 2022-04-13 07:36 | XMS_ITS | Encounter Summary ---
:1955 Author Organization [facility] Address [address], [place] [address] Care Team Providers Name Role Phone Carroll Avalos MD Primary Care Provider Reason for Visit Reason Comments Refill amLODIPine (NORVASC) 5 MG ta blet [Pharmacy Med Name: AMLODIPINE BESYLATE 5MG TABS]; losartan (COZAAR) 50 MG tablet [Pharmacy Med Name: LOSARTAN POTASSIUM 50MG TABS] Encounter Details Date Type Department Care Team Description 05/11/2017 Refill [facility] Carroll Avalos MD Refill (amLODIPine Practice [address] (NORVASC) 5 MG tablet [address] [place] [address] [Pharmacy Med Name: [place] [address] AMLODIPINE BESYLATE 5MG [phone] TABS]; lo sartan (COZAAR) 50 MG tablet [...] 80 mm Hg on 04/23/2017 Powered by Mind FactoryAR, Reference: [id number], 05/11/2017 7:41:05 AM Luis Eduardo COREY: ARNOLD AMEZQUITA RN ([id number]) losartan (COZAAR) 50 MG tablet [Pharmacy Med [...] K: 4.4 mEq/L on 03/04/2017 Powered by Mind FactoryAR, Reference: [id number], 05/11/2017 7:41:05 AM MINK FARMER, Pool: ARNOLD AMEZQUITA RN ([id number]) FARMER Interface, Out [employer] Query - 05/11/2017 7:41 AM CST The [...] normal. Torey Marcelo MD 03/05/2017, 6:39 PM FARMER documented in this encounter Plan of Treatment Not on filedocumented as of this encounter Visit Diagnoses Not on filedocumented in this encounter Care Teams Methods Specialist Relationship Specialty Start Date End Date Carroll Avalos MD PCP - General 07/08/05 [address] [place] [address] documented as of this encounter
--- OUTSIDE RECORDS SUMMARY | 2022-04-13 07:36 | XMS_ITS | Encounter Summary ---
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 [place] [address] [address] [facility] [phone] [place], [place] [id number] Social History Tobacco Use Types Packs/Day Years [...] itself. documented in this encounter Progress Notes Eric Keller, OD - 01/18/2017 3:44 PM CDT HPI Chief Complaint Patient presents with ??? Routine Eye Exam RAMIN 01/17 . Patient states no visual changes. Patient states she uses otc readers. Patient uses systane PRN ??? Diabetic Exam, Yearly BS- controlled with metformin. Last BS was 135 taken a couple days ago. A1C- 7.2 11/2016. QCt4arp? Routine Eye Exam Loc [place] is a [...] Presbyopia documented in this encounter Care Teams Associate Professor Computer Science Relationship Specialty Start Date End Date Alisha Kimball MD PCP - General 07/08/05 [address] [place] [address] documented as of this encounter
--- OUTSIDE RECORDS SUMMARY | 2022-04-13 07:36 | XMS_ITS | Encounter Summary ---
:1955 Author Organization [facility] Address [address] [place] [address] Care Team Providers Name Role Phone Alisha Kimball MD Primary Care Provider Reason for Referral Procedure/Equipment (Routine) - Incomplete Specialty Diagnoses / Procedures Referred By Contact Refer red To Contact Procedures Alisha Kimball MD MM Mammogram Screening [facility] [address] [place] [address] Referral ID Status Reason Start Date Expiration Date Visits V isits Requested Authorized [id number] Incomplete 01/18/2017 04/19/2018 1 1 Reason for Visit Procedure/Equipment (Routine) - Incomplete Specialty Diagnoses / Procedures Referred By Contact Refer red To Contact Procedures Alisha Kimball MD MM Mammogram Screening [place] [address] [place] [address] Referral ID Status Reason Start Date Expiration Date Visits V isits Requested Authorized [id number] Incomplete 01/18/2017 04/19/2018 1 1 Encounter Details Date Type Department Care Team Description 01/18/2017 Imaging [facility] ury Mammography [address] [place] [address] Social History Tobacco Use Types [...] filedocumented in this encounter Care Teams Manager Telemarketing Relationship Specialty Start Date End Date Alisha Kimball MD PCP - General 07/08/05 [address] [place] [address] documented as of this encounter
--- OUTSIDE RECORDS SUMMARY | 2022-04-13 07:36 | XMS_ITS | Encounter Summary ---
:1955 Author [facility] Address [address] [place] [address] Care Team Providers Name Role Phone Alisha Kimball MD Primary Care Provider Reason for Referral Procedure/Equipment (Routine) - Closed Specialty Diagnoses / Procedures Referred By Contact Refer red To Contact Diagnoses Sleep disturbance Alvarado Friedman MD [address] [place] [address] Referral ID Status Reason Start Date Expiration Date Visits Requ ested Visits Authorized [id number] Closed 03/30/2017 06/29/2018 1 1 Scheduling Instructions [...] company at a location near the sleep [facility]. At the time you receive your equipment, [...] Type Department Care Team Description 03/30/2017 Notes/Orders [facility] Alvarado Friedman, [facility] Cardiology (Primary Dx) [address] [facility] [address] [place] [address] [place], [place] [phone] [id number] Social History Tobacco Use Types Packs/Day Years [...] unspecified documented in this encounter Care Teams Mortgage Loan Counselor Relationship Specialty Start Date End Date Alisha Kimball MD PCP - General 07/08/05 [address] [place] [address] documented as of this encounter
--- OUTSIDE RECORDS SUMMARY | 2022-04-13 07:36 | XMS_ITS | Encounter Summary ---
:1955 Author Organization [facility] Address [address] [place] [address] Care Team Providers Name Role Phone Alisha Kimball MD Primary Care Provider Encounter Details Date Type Department Care Team Description 03/04/2017 Lab [place] [address] [place], [place] [address] Social History Tobacco Use [...] on filedocumented in this encounter Care Teams Medical Collections Specialist Relationship Specialty Start Date End Date Alisha Kimball MD PCP - General 07/08/[address] [place], [place] [phone] documented as of this encounter
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
--- OUTSIDE RECORDS SUMMARY | 2022-04-13 07:36 | XMS_ITS | Encounter Summary ---
:1955 Author Organization [facility] Address [address] [place] [address] Care Team Providers Name Role Phone Alisha Kimball MD Primary Care Provider Reason for Visit Reason Comments RESULTS, TEST Encounter Details Date Type Department Care Team Description 03/23/2017 Telephone [facility] Torey Marcelo MD RESULTS, TEST Practice [address] [facility] [address] [place] [address] [place], [place] [address] [phone] Social History Tobacco Use Types Packs/Day Years [...] was an appt on 03/19 for the supervisor salvage and she turned it in yesterday. She will wait for cardiology to call her to schedule consult. Will FYI Dr Marcelo. Lyn Irvin LPN 03/23/2017, 1:59 PM Lyn [...] am going to refer you to a artificial marble worker for a consultation also. Torey Marcelo MD 03/23/2017, 12:52 PM documented in this encounter Plan of Treatment Not on filedocumented as of this encounter Visit Diagnoses Not on filedocumented in this encounter Care Teams Extruder Tender Relationship Specialty Start Date End Date Alisha Kimball MD PCP - General 07/08/05 [address] [place] [address] documented as of this encounter
--- OUTSIDE RECORDS SUMMARY | 2022-04-13 07:36 | XMS_ITS | Encounter Summary ---
:1955 [facility] Address [address], [place] [address] Care Team Providers Name Role Phone Carroll Kimball MD Primary Care Provider Reason for Visit Reason Comments Refill atorvastatin (LIPITOR) 10 MG tablet [Pharmacy Med Name: ATORVASTATIN 10MG TABS] Encounter Details Date Type Department Care Team Description [facility] (atorvastatin [facility] [address] (LIPITOR) 10 [place] [address] [place] [address] [Pharmacy Med Name: [phone] (Wo rk) ATORVASTATIN 10MG TABS]) Social History Tobacco Use Types Packs/Day Years Used Date Smoking Tobacco: Never Smokeless Tobacco: Never Alcohol Use Standard Drinks/Week Comments No 0 (1 standard drink = 0.6 oz pure alcoho l) Sex Assigned at Date Recorded Not on file documented as of this encounter Nursing Notes Senia Cramer RN - 01/22/2017 9:18 AM CDT per standing order Senia Cramer RN Interface, Out Surescripts Prov Query - 01/22/2017 3:19 AM CDT atorvastatin (LIPITOR) 10 MG tablet [Pharmacy Med Name: ATORVASTATIN 10MG TABS] Protocol: Cholesterol - Statins -> Refill x 12 months (until due for an office visit) Last qualifying visit: 12/07/2016 (in Family Practice) Next scheduled visit: None Last ordered by CARROLL KIMBALL: 02/10/2016 (347 days ago) QTY: 90, Refills: 3, Sig: take one tabletby mouth every day (unchanged) LDL: 82 mg/dL on 12/01/2016 Powered by [employer], Reference: [id number], 01/22/2017 3:19:00 AM CDT, Pool: ARNOLD REFILL CAITLYN ([id number]) Interface, Out oneforty Query - 01/22/2017 3:19 AM CDT The following lab order(s) may be associated with the Result Note below: LIPID PANEL AND DIRECT LDL(IF NEEDED) Notes Recorded by Carroll Kimball MD on 12/02/2016 at 5:27 PM Will discuss with the patient at her next visit 12/07/2016. Carroll Kimball MD documented in this encounter Plan of Treatment Not on filedocumented as of this encounter Visit Diagnoses Not on filedocumented in this encounter Care Teams Detention Attendant Relationship Specialty Start Date End Date Carroll Kimball MD PCP - General 07/08/[address] [place] [address] documented as of this encounter
--- OUTSIDE RECORDS SUMMARY | 2022-04-13 07:36 | XMS_ITS | Encounter Summary ---
:1955 Author Organization [facility] Address [address] [place] [address] Care Team Providers Name Role Phone Alisha Kimball MD Primary Care Provider Reason for Visit Procedure/Equipment (Routine) - Incomplete Specialty Diagnoses / Procedures Referred By Contact Refer red To Contact Diagnoses Elevated liver enzymes Alisha Kimball MD Procedures US Abd Complete [address] [place] [address] Referral ID Status Reason Start Date Expiration Date Visits V isits Requested Authorized [id number] Incomplete 12/09/2016 03/10/2018 1 1 Encounter Details Date Type Department Care Team Description 12/17/2016 Imaging [facility] Specialty Alisha Kimball, Elevated liver enzymes Center Ultrasound [address] [place] [address] [place] [address] [phone] Social History Tobacco Use Types Packs/Day Years [...] (LDH) documented in this encounter Care Teams Motor Patrol Operator Relationship Specialty Start Date End Date Alisha Kimball MD PCP - General 07/08/05 [address] [place] [address] documented as of this encounter
--- OUTSIDE RECORDS SUMMARY | 2022-04-13 07:36 | XMS_ITS | Encounter Summary ---
:1955 Author Organization [facility] Address [address] [place] [address] Care Team Providers Name Role Phone Alisha Kimball MD Primary Care Provider Encounter Details Date Type Department Care Team Description 03/25/2017 Orders Only [facility] Torey Marcelo, Cardiac Non-Invasive Lab [address] [place] [address] [place], [place] [phone] (Wo rk) Social History Tobacco Use [...] Name Priority Date/Time Associated Diagnosis Comme nts OFFICE WORKER 03/25/2017 12:00 AM Resul ts for this CDT procedure are i n the results section. documented in this encounter Results OFFICE WORKER (03/25/2017 12:00 AM CDT) Specimen (Source) Anatomical Location Collection Method / Collectio n Time Received Time / Laterality Volume 03/25/2017 Narrative This result has an attachment that is no t available. Torey Marcelo MD DUMMY/OTHER/AR documented in this encounter Visit Diagnoses Not on filedocumented in this encounter Care Teams Shoemaker Apprentice Relationship Specialty Start Date End Date Alisha Kimball MD PCP - General 07/08/[address] [place] [address] documented as of this encounter
--- OUTSIDE RECORDS SUMMARY | 2022-04-13 07:36 | XMS_ITS | Encounter Summary ---
:1955 Author Organization [facility] Address [address] [place] [address] Care Team Providers Name Role Phone Alisha Kimball MD Primary Care Provider Reason for Visit Reason Comments Follow Up Test Results Event monitor Encounter Details Date Type Department Care Team Description 04/16/2017 Telephone [facility] Alvarado Friedman F olnaveed Up Test Cardiology MD Results (Event [address] [facility] monitor) [place] [address] [place], [place] [phone] [address] Social History Tobacco Use Types Packs/Day Years Used Date Smoking Tobacco: Never Smokeless Tobacco: Never Alcohol Use Standard Drinks/Week Comments No 0 (1 standard drink = 0.6 oz pure alcoho l) Sex Assigned at Date Recorded Not on file documented as of this encounter Nursing Notes Alisha Mayfield, RN - 04/16/2017 4:54 PM CDT Received fax from [employer], Dr. Friedman reviewed and found Atrial Fib. [...] fibrillation documented in this encounter Care Teams Tree Topper Relationship Specialty Start Date End Date Alisha Kimball MD PCP - General 07/08/05 [address] [place] [address] documented as of this encounter
--- OUTSIDE RECORDS SUMMARY | 2022-04-13 07:36 | XMS_ITS | Encounter Summary ---
:1955 Author Organization [facility] Address [address] [place] [address] Care Team Providers Name Role Phone Alisha Kimball MD Primary Care Provider Reason for Referral Procedure/Equipment (Routine) - Incomplete Specialty Diagnoses / Procedures Referred By Contact Refer red To Contact Diagnoses Snoring Excessive daytime sleepiness Alvarado Friedman MD [address] [place] [address] Referral ID Status Reason Start Date Expiration Date Visits V isits Requested Authorized [id number] Incomplete 03/30/2017 06/29/2018 1 1 Scheduling Instructions [...] next 7 days, please contact us at [phone]. Procedure/Equipment (Routine) - Closed Specialty Diagnoses / Procedures Referred By Contact Refer red To Contact Diagnoses PAF (paroxysmal atrial fibrillation) (HRC) Alvarado Friedman MD [address] [place] [id number] Referral ID Status Reason Start Date Expiration Date Visits Requ ested Visits Authorized [id number] Closed 03/30/2017 06/29/2018 1 1 Scheduling Instructions You will be contacted within a week by bk cárdenas regarding your monitor group home supervisor. This recommended service may not be cove red by your insurance coverage. We suggest you call your health insurance company a bout your coverage and benefits for this appointment. Procedure/Equipment (Routine) - Closed Specialty Diagnoses / Procedures Referred By Contact Refer red To Contact Diagnoses PAF (paroxysmal atrial fibrillation) (HRC) Alvarado Friedman MD [address] [place] [address] Referral ID Status Reason Start Date Expiration Date Visits Requ ested Visits Authorized [id number] Closed 03/30/2017 06/29/2018 1 1 Scheduling Instructions Your provider has recommended an appoint ment with [facility]. You may call [phone] to schedule your appoi ntment. If you prefer, a outsole scheduler will contact you within the next 3 business d ays to assist you in setting up this appointment. We suggest you call your [facility] insurance company about your coverage and benefits for this appointment. Reason for Visit Reason Comments CONSULT Consult/Transfer Care (Routine) - Closed Specialty Diagnoses / Procedures Referred By Contact Refer red To Contact Diagnoses Syncope, [place] [address] [place], [place] [address] Referral ID Status Reason Start Date Expiration Date Visits Requ ested Visits Authorized [id number] Closed 03/23/2017 06/22/2018 1 1 Encounter Details Date Type Department Care Team Description 03/30/2017 Office Visit [facility] Alvarado Friedman P AF (paroxysmal atrial fibrillation) (HRC) (Primary Dx); Cardiology Pre-syncope; [address] [place] [address]. [address] [place] [address] Syncope and collapse; [place] [address] [place], [place] Snoring; [phone] Excessive daytime sleepiness Social History Tobacco Use [...] Advanced Care Provider. Thank you for choosing [facility] for your Cardiology care. You may contact us at [facility] at [phone]. After hours, you may contact the Care Line at [phone] or . Learning About Atrial Fibrillation What is atrial fibrillation? Atrial fibrillation (say AY-tree-rosendo ioy-zqkh-MUW-shun) is the most common type of irregular [...] can you learn more? 1. Go to [facility] or [employer] [facility]. 2. Enter L274 in the search box. Current as of: September 30, 2015 Content Version: 11.3 ?? [id number] Swivl. Apixaban (Eliquis) Taking an anticoagulant to prevent [...] taking apixaban and any other prescription and prdt-rvq-wfkevhr medications, including herbal supplements and vitamins. In [...] Antimycobacterial--used to treat certain types of infection Sewell???s Wort(Purcell perforatum) Herbal product--used to help treat depression [...] keep this appointment, please call the [facility] at [phone]. BEFORE THE TEST: You do not need to do anything special to prepare for the test. DURING THE TEST: A phone manager will explain the test to you. An ultrasound transducer and gel will be placed on your chest and pictures will be made. Some tests require the use of a contrast solution. This is given through an intravenous needle (IV) that is placed in your hand or arm. The contrast solution helps the qual research manager take better pictures of your heart. AFTER THE EXAM: Your test results will be sent to your physician, who will discuss the results with you. WHERE DO I GO IF MY TEST IS BEING PERFORMED AT [facility]? If this test is performed in the [facility] Non-Invasive Lab, it is located on the second (main) floor of [facility]. developmental services worker can direct you to the proper area. Slasher Runner locations are at the main entrance, at the south entrance and at the north entrance. HOW TO GET TO [facility]: [facility] is located at the intersection of [facility] and [facility], just a few blocks away from the [facility] and the junction of [facility] [address]. For automated directions, call . PARKING: The [place] parking ramp is the most convenient place to park for Heart Center appointments. The [facility] entrance is off of [facility]. To receive a reduction in your parking fee, please ask the Heart program director/morning show host to validate your parking ticket. WHERE DO I GO IF MY TEST IS BEING PERFORMED AT THE [facility]? Call [phone] for directions. HEART MONITORING TECHNIQUES Please remember [...] scanned on a special machine while a csr technician looks for any changes in heartbeat [...] of need! They can not be applied hbflj-jkh-molf. They must always be in place so [...] HISTORY: Non smoker FAMILY HISTORY: Dad had [place] in 60s pGFA [place] at 59 PGMa had CVA in 70s [...] afib. We discussed risks/benefits of anticoagulation using Appside anticoagulation camille We will likely start apixaban [...] contact me. Alvarado Friedman MD Cardiology Pager [phone] documented in this encounter Plan of Treatment [...] sleepiness documented in this encounter Care Teams Patient Observation Assistant Relationship Specialty Start Date End Date Alisha Kimball MD PCP - General 07/08/05 [address] [place] [address] documented as of this encounter
--- OUTSIDE RECORDS SUMMARY | 2022-04-13 07:36 | XMS_ITS | Encounter Summary ---
:1955 Author Organization [facility] Address [address] [place] [address] Care Team Providers Name Role Phone Alisha Kimball MD Primary Care Provider Reason for Visit Reason Comments ERRONEOUS ENTRY Encounter Details Date Type Department Care Team Description 03/05/2017 Telephone [facility] Torey Marcelo Axel ERRONEOUS ENTRY [address] [place], [place] [address] Social History Tobacco Use [...] on filedocumented in this encounter Care Teams Bias Cutter Helper Relationship Specialty Start Date End Date Alisha iKmball MD PCP - General 07/08/[address] [place], [place] [id number] documented as of this encounter
--- OUTSIDE RECORDS SUMMARY | 2022-04-13 07:36 | XMS_ITS | Encounter Summary ---
:1955 Author Organization [facility] Address [address] [place] [address] Care Team Providers Name Role Phone Alisha Kimball MD Primary Care Provider Encounter Details Date Type Department Care Team Description 12/07/2016 Lab Visit [facility] Need for hepatitis C screeni ng test; [address] [place] [address] Social History Tobacco Use Types [...] A Antibody, IgG (12/07/2016 9:21 AM CDT) [facility] Method Time Signature Hepatitis A Negative POSR [facility] Ab, IgG (Non LABORATORIES Reactive) (A) Specimen Anatomical Collection Method Collection Time Receive d Time (Source) Location / / Volume [facility] 12/07/2016 9:21 AM 7 9:22 CDT AM CDT Narrative [facility] - 12/07/2016 5:10 PM C DT Performed at [facility], [address] [place] [address] ??[address] Alisha Kimball MD LAB_1 Performing Organization Address City/[facility] Phon e Number [facility] [phone] Ferritin (12/07/2016 9:21 AM CDT) athologist Signature Ferritin 114 9 - 204 [facility] ng/ml Specimen Anatomical Collection Method Collection Time Receive d Time (Source) Location / / Volume Laterality 12/07/2016 9:21 AM 7 9:22 CDT AM CDT Narrative [facility] - 12/07/2016 1:54 PM C DT Performed at [facility], [address] [place] [address] ??[id number] Alisha Kimball MD LAB_1 Performing Organization Address [facility] Phon e Number [facility] [phone] Ceruoplasmin (12/07/2016 9:21 AM CDT) Component Value Ref Test Analysis Performed At [facility] Method Time Signature Ceruloplasmin 21 [facility] Reference range: 17 to 54 [facility] Unit: mg/dL Ceruloplasmin (NOTE) [facility] REFERENCE INTERVAL: Ceruloplasmin LABORATORIES Access complete set of age- and/or gender-specific reference ?? intervals for this test in the mig33 Laboratory Shared Services Manager y ?? ([employer]). [address] [place] [address] [email or web address], Sadi Alba MD, Lab. Director Specimen Anatomical Collection Method Collection Time Receive d Time (Source) Location / / Volume Laterality 12/07/2016 9:21 AM 7 9:22 CDT AM CDT Narrative [facility] - 12/08/2016 1:54 PM C DT Performed by [facility], [address], [place] [address] Alisha Kimball MD LAB_1 Performing Organization Address City/[facility] Phon e Number [facility] [phone] SELAM Screen (12/07/2016 9:21 AM CDT) Analysis Performed At Patho logist Time Signature SELAM Screen Negative NEG [facility] Specimen Anatomical Collection Method Collection Time Receive d Time (Source) Location / / Volume Laterality 12/07/2016 9:21 AM 7 9:22 CDT AM CDT Narrative [facility] - 12/08/2016 4:48 PM C DT Performed at [address] ??[address] Alisha Kimball MD LAB_1 Performing Organization Address City/[facility]/ZIP Code Phon e Number [facility] [phone] ESR (12/07/2016 9:21 AM CDT) P athologist Signature ESR 6 0 - 20 [facility] mm/hr Specimen Anatomical Collection Method Collection Time Receive d Time (Source) Location / / Volume Laterality 12/07/2016 9:21 AM 7 9:22 CDT AM CDT Narrative [facility] - 12/07/2016 2:59 PM C DT Performed at [facility], [address] [place] [address] ??[address] Alisha Kimball MD LAB_1 Performing Organization Address City/[facility]/ZIP Code Phon e Number [facility] [phone] HBsAg (Hepatitis B Surface Antigen) (12/07/2016 9:21 AM CDT) [facility] Method Time Signature HBsAg Negative (Non NEGNR [facility] Reactive) LABORATORIES Specimen Anatomical Collection Method Collection Time Receive d Time (Source) Location / / Volume Laterality 12/07/2016 9:21 AM 7 9:22 CDT AM CDT Narrative [facility] - 12/07/2016 5:10 PM C DT Performed at [address] ??[address] Alisha Kimball MD LAB_1 Performing Organization Address City/[facility] Phon e Number [facility] [phone] (ABNORMAL) Hepatitis B Surface Antibody (12/07/2016 9:21 AM CDT) [facility] Time Signature Hep B Surf AB [...] 12/07/2016 5:11 PM C DT Performed at [facility], [address] [place] [address] ??[address] Alisha Kimball MD LAB_1 Performing Organization Address City/[facility] Phon e Number [facility] [phone] (ABNORMAL) Liver Panel(Hepatic Function Panel) (12/07/2016 9:21 AM CDT) [facility] Time Signature Alkaline 85 40 - [...] 12/07/2016 1:39 PM C DT Performed at [address] ??[address] Alisha Kimball MD LAB_1 Performing Organization Address [facility] Phon e Number [facility] [phone] HEP C recommended for patients born between 3536-6447 (12/07/2016 9:21 AM CDT) [facility] Method Time Signature Anti-HCV Negative (Non NEGNR [facility] Reactive) LABORATORIES Comment: Antibodies to HCV not detected. Does not exclude the possibility of exposure to HCV. Specimen Anatomical Collection Method Collection Time Receive d Time (Source) Location / / Volume Laterality 12/07/2016 9:21 AM 7 9:22 CDT AM CDT Narrative [facility] - 12/07/2016 2:01 PM C DT Performed at [address] ??[address] Alisha Kimball MD LAB_1 Performing Organization Address City/[facility] Phon e Number [facility] [phone] documented in this encounter Visit Diagnoses Diagnosis Need for hepatitis C screening test Special screening examination for other specified viral diseases Elevated liver enzymes Nonspecific elevation of levels of trans aminase or lactic acid dehydrogenase (LDH) documented in this encounter Care Teams Entrepreneur Relationship Specialty Start Date End Date Alisha Kimball MD PCP - General 07/08/05 [address] [place] [address] documented as of this encounter
--- OUTSIDE RECORDS SUMMARY | 2022-04-13 07:36 | XMS_ITS | Encounter Summary ---
:1955 Author [facility] Address [address] [place] [address] Care Team Providers Name Role Phone Alisha Kimball MD Primary Care Provider Reason for Referral Procedure/Equipment (Routine) - Incomplete Specialty Diagnoses / Procedures Referred By Contact Refer red To Contact Diagnoses Elevated liver enzymes Alisha Kimball MD Procedures [facility] Complete [address] [place] [address] Referral ID Status Reason Start Date Expiration Date Visits V isits Requested Authorized [id number] Incomplete 12/09/2016 03/10/2018 1 1 Reason for Visit Reason Comments LAB RESULTS Encounter Details Date Type Department Care Team Description 12/08/2016 Telephone [facility] Alisha Kimball MD LAB RESULTS [address] [facility]. [address] [place] [address] [place] [address] (Wo rk) Social History Tobacco [...] Patient returning call. Please call back at [phone]. Ok to leave a detailed message. Treasure [...] Small left renal cyst. Alisha Kimball MD [facility] documented in this encounter Visit Diagnoses Diagnosis Elevated liver enzymes - Primary Nonspecific elevation of levels of trans aminase or lactic acid dehydrogenase (LDH) Elevated liver enzymes Nonspecific elevation of levels of trans aminase or lactic acid dehydrogenase (LDH) documented in this encounter Care Teams Middle School Technology Teacher Relationship Specialty Start Date End Date Alisha Kimball MD PCP - General 07/08/05 [address] [place] [address] documented as of this encounter
--- OUTSIDE RECORDS SUMMARY | 2022-04-13 07:36 | XMS_ITS | Encounter Summary ---
:1955 Author Organization [facility] Address [address] [place] [address] Care Team Providers Name Role Phone Alisha Kimball MD Primary Care Provider Reason for Visit Procedure/Equipment (Routine) - Incomplete Specialty Diagnoses / Procedures Referred By Contact Refer red To Contact Diagnoses Left foot pain Izaiah Rouse, DPM Procedures XR Foot Lt AP/Lat/MO/LO 4Vws [address] [place] [address] Referral ID Status Reason Start Date Expiration Date Visits V isits Requested Authorized [id number] Incomplete 01/22/2017 04/23/2018 1 1 Encounter Details Date Type Department Care Team Description 01/22/2017 Imaging [facility] Specialty Garry Rouse R, Left foot pain Center [address] Radiology DPM [address] [place] [address] [place] [address] [phone] (Wo rk) Social History Tobacco Use Types [...] limb documented in this encounter Care Teams Appeals Board Referee Relationship Specialty Start Date End Date Alisha Kimball MD PCP - General 07/08/05 [address] [place] [address] documented as of this encounter
--- OUTSIDE RECORDS SUMMARY | 2022-04-13 07:36 | XMS_ITS | Encounter Summary ---
:1955 Author Organization [facility] Address [address] [place] [address] Care Team Providers Name Role Phone Alisha Kimball MD Primary Care Provider Reason for Visit Reason Comments Dental Conversion Legacy EDR to Tillar convers ion Encounter Details Date Type Department Care Team Description 12/10/2016 Dental Conversion [facility] Conchis S, DMD [address] [place] [address] [place] [address] [phone] Social History Tobacco Use Types Packs/Day Years [...] . Uses Fluoridated toothpaste. Primary water source: [facility], Unfiltered. Additional Notes: b 3xdn f 1-2xd. [...] Dr Alisha Kimball. The patient's medical clinic: [facility]. Current Medication 1: Vitamin Multi. Current Medication [...] Current Medication 10 : Metformin. Current Medication Jjozio89 : 500mg. Current Medication Mlbitrqrc69 : Daily. Current Medication 11 : Generic Lipitor. Current Medication Ffwzglfcl77 : Daily. Health History Note Interface, In [...] . Uses Fluoridated toothpaste. Primary water source: [facility], Unfiltered. Additional Notes: b 3xdn f 1-2xd. [...] Dr Alisha Kimball. The patient's medical clinic: [facility]. Current Medication 1: Vitamin Multi. Current Medication [...] . Uses Fluoridated toothpaste. Primary water source: [facility], Unfiltered. Additional Notes: b 3xdn f 1-2xd. [...] Dr Alisha Kimball. The patient's medical clinic: [facility]. Current Medication 1: Vitamin Multi. Current Medication 2: Vitamin D. Current Medication 3: Fiber Pill. Current Medication 4: Baby Aspirin. Current Medication 5 : Fish Oil Occasionally. Current Medication 6 : Chromium. 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 Her name is Melia Velasco (#[id number]). Our concern is that she continues to [...] Edr Dental Conversion - 08/19/2011 12:00 AM MAJOR CASE DETECTIVE 08/19/2011: Address Updated: Phone number updated. sg R CASE DETECTIVE documented in this encounter Plan of Treatment Not on filedocumented as of this encounter Visit Diagnoses Not on filedocumented in this encounter Care Teams Insurance Verification Specialist Relationship Specialty Start Date End Date Alisha Kimball MD PCP - General 07/08/05 [address] [place] [address] documented as of this encounter
--- OUTSIDE RECORDS SUMMARY | 2022-04-13 07:36 | XMS_ITS | Encounter Summary ---
:1955 Author Organization [facility] Address [address] [place] [address] Care Team Providers Name Role Phone Alisha Kimball MD Primary Care Provider Reason for Referral Consult/Transfer Care (Routine) - Closed Specialty Diagnoses / Procedures Referred By Contact Refer red To Contact Diagnoses Syncope, [place] [address] [place], [place] [address] Referral ID Status Reason Start Date Expiration Date Visits Requ ested Visits Authorized [id number] Closed 03/23/2017 06/22/2018 1 1 Scheduling Instructions Your provider has recommended an appoint ment with [facility]. You may call [phone] to schedule your appoi ntment. If you prefer, a body shop floorperson will contact you within the next 3 business d ays to assist you in setting up this appointment. We suggest you call your [facility] insurance company about your coverage and benefits for this appointment. Encounter Details Date Type Department Care Team Description 03/23/2017 Notes/Orders [facility] Torey Marcelo Syncope, unspecified Practice MD Ian syncope type (Primary [address] [place]x) [place] [phone] Social History Tobacco Use Types Packs/Day Years [...] levy documented in this encounter Care Teams Bluing Oven Tender Relationship Specialty Start Date End Date Alisha Kimball MD PCP - General 07/08/05 [address] [place] [address] documented as of this encounter
--- OUTSIDE RECORDS SUMMARY | 2022-04-13 07:36 | XMS_ITS | Encounter Summary ---
:1955 Author Organization [facility] Address [address] [place] [address] Care Team Providers Name Role Phone Alisha Kimball MD Primary Care Provider Reason for Visit Procedure/Equipment (Routine) - Incomplete Specialty Diagnoses / Procedures Referred By Contact Refer red To Contact Diagnoses Syncope, unspecified syncope type Torey Marcelo MD Procedures NM Card Exercise Rest/Stress Spect [address] [place], [place] [address] Referral ID Status Reason Start Date Expiration Date Visits V isits Requested Authorized [id number] Incomplete 03/04/2017 06/03/2018 6 6 Encounter Details Date Type Department Care Team Description 03/22/2017 Office Visit [facility] Torey Marcelo, Cardiac Non-Invasive Lab [address] [place] [address] [place] [address] [place], [place] [phone] [address] (Wo rk) Social History Tobacco Use Types [...] within one week. Please follow up with [facility] if you have not received your test [...] will follow up with Dr Marcelo at [facility]. Test done with diplomatic interpreter present: no 20 gauge IV catheter inserted [...] on filedocumented in this encounter Care Teams Image Consultant Relationship Specialty Start Date End Date Alisha Kimball MD PCP - General 07/08/05 [address] [place] [address] documented as of this encounter
--- OUTSIDE RECORDS SUMMARY | 2022-04-13 07:36 | XMS_ITS | Encounter Summary ---
:1955 Author Organization [facility] Address [address] [place] [address] Care Team Providers Name Role Phone Alisha Kimball MD Primary Care Provider Reason for Visit Reason Comments Future Appointments Encounter Details Date Type Department Care Team Description 01/28/2017 Telephone [facility] Tesha Maxwell, Future Appointments [address] [facility] [place] [address] 8450 [facility] [phone] [place], [place] [address] (Wo rk) Social History [...] on filedocumented in this encounter Care Teams Butter Printer Relationship Specialty Start Date End Date Alisha Kimball MD PCP - General 07/08/05 [address] [facility] [place] [id number] documented as of this encounter
--- OUTSIDE RECORDS SUMMARY | 2022-04-13 07:36 | XMS_ITS | Encounter Summary ---
:1955 Author Organization [facility] Address [address] [place] [address] Care Team Providers Name Role Phone Alisha Kimball MD Primary Care Provider Reason for Visit Procedure/Equipment (Routine) - Closed Specialty Diagnoses / Procedures Referred By Contact Refer red To Contact Diagnoses PAF (paroxysmal atrial fibrillation) (HRC) Alvarado Friedman MD [address] [place] [id number] Referral ID Status Reason Start Date Expiration Date Visits Requ ested Visits Authorized [id number] Closed 03/30/2017 06/29/2018 1 1 Encounter Details Date Type Department Care Team Description 04/22/2017 Office Visit [facility] atrial Cardiac Non-Invasive Lab fibrillation (HRC) [address] [place] [address] (Primary Dx) [place], [place] [id number] Social History Tobacco Use Types Packs/Day Years [...] AM CDT Alvarado Friedman MD [facility] AUTO DEALER/RH Performing Organization Address City/State/ZIP Code Phon e Number [facility] [address] [place] [address] CARDIAC ROUTINE ECHOCARDIOGRAM (04/22/2017 10:16 AM CDT) [...] Phon e Number [facility] [address] [place] [address] documented in this encounter Visit Diagnoses Diagnosis Paroxysmal atrial fibrillation (HRC) - P rimary Atrial fibrillation documented in this encounter Care Teams Sling Operator Relationship Specialty Start Date End Date Alisha Kimball MD PCP - General 07/08/05 [address] [place] [address] documented as of this encounter
--- OUTSIDE RECORDS SUMMARY | 2022-04-13 07:36 | XMS_ITS | Encounter Summary ---
:1955 Author Organization [employer] Address [address] [place] [address] Care Team Providers Name Role Phone Alisha Kimball MD Primary Care Provider Reason for Visit Reason Comments MEDICATION REVIEW AND EDUCATION Encounter Details Date Type Department Care Team Description 04/23/2017 Office Visit [facility] Kailey Christine Essential hypertension (Prim levy Dx); [facility] Diabetes mellitus, type 2 (H RC) [place], [place] [phone] Social History Tobacco Use Types Packs/Day Years [...] with MTM Pharmacist in 6 months/ Updated FindIt med list and reviewed medications including indications [...] documented in this encounter Care Teams Escort Service Attendant Relationship Specialty Start Date End Date Alisha Kimball MD PCP - General 07/08/05 [address] [place] [address] documented as of this encounter
--- OUTSIDE RECORDS SUMMARY | 2022-04-13 07:36 | XMS_ITS | Encounter Summary ---
:1955 Author Organization [facility] Address [address] [place] [address] Care Team Providers Name Role Phone Alisha Kimball MD Primary Care Provider Encounter Details Date Type Department Care Team Description 04/22/2017 Notes/Orders [facility] Tamy Friedman MD Cardiology [address] [facility] [address] [place] [address] [place] [address] [phone] Social History Tobacco Use Types Packs/Day Years [...] on filedocumented in this encounter Care Teams Geriatric Case Manager Relationship Specialty Start Date End Date Alisha Kimball MD PCP - General 07/08/[address] [place], [place] [id number] documented as of this encounter
--- OUTSIDE RECORDS SUMMARY | 2022-04-13 07:37 | XMS_ITS | Encounter Summary ---
:1955 Author Organization [facility] Address [address] [address] Care Team Providers Name Role Phone Alisha Kimball MD Primary Care Provider Reason for Visit Reason Comments MEDICATION THERAPY MANAGEMENT Encounter Details Date Type Department Care Team Description 03/12/2016 Office Visit [facility] Tesha Maxwell, Diabetes mellitus, type 2 (H RC) (Primary Dx); [address] [facility] PharmD Essential hypertension; [place], [place] [address] Hypercholeste rolemia (HRC) [address] [facility] [phone] [place] [address] Social History Tobacco Use Types [...] you have questions. Thanks, Tesha Maxwell PharmD [facility] on Wednesday & Wednesday [facility] on & Wednesday documented in this encounter [...] scheduled for April 09 at 8:00am. Updated Smarp. list and reviewed medications including indications with [...] hypercholesterolemia documented in this encounter Care Teams Capital Campaign Fundraiser Relationship Specialty Start Date End Date Alisha Kimball MD PCP - General 07/08/05 [address] [place] [address] documented as of this encounter
--- OUTSIDE RECORDS SUMMARY | 2022-04-13 07:37 | XMS_ITS | Encounter Summary ---
:1955 Author Organization [facility] Address [address] [place] [address] Care Team Providers Name Role Phone Alisha Kimball MD Primary Care Provider Reason for Visit Reason Comments Refill atorvastatin (LIPITOR) 10 MG tablet [Pharmacy Med Name: ATORVASTATIN 10MG TABS] Encounter Details Date Type Department Care Team Description 02/09/2016 Refill [facility] Alisha Kimball MD Refill (atorvastatin Medicine [address] (LIPITOR) 10 MG tablet [address] [place] [address] [Pharmacy Med Name: [place] [address] ATORVASTATIN 10MG TABS]) [phone] Social History Tobacco Use Types Packs/Day Years [...] visit 12/09/2015. Alisha Kimball MD Interface, Out Sparkbrowser Prov Query - 02/09/2016 6:45 AM CDT [...] LDL: 72 mg/dL on 11/30/2015 Powered by evocatal, Reference: [id number], 02/09/2016 6:45:41 AM CDT, Pool: ARNOLD AMEZQUITA RN ([id number]) documented in this encounter Plan of Treatment Not on filedocumented as of this encounter Visit Diagnoses Not on filedocumented in this encounter Care Teams Freelance Designer Relationship Specialty Start Date End Date Alisha Kimball MD PCP - General 07/08/05 [address] [place] [address] documented as of this encounter
--- OUTSIDE RECORDS SUMMARY | 2022-04-13 07:37 | XMS_ITS | Encounter Summary ---
:1955 Author Organization [facility] Address [address], [place] [address] Care Team Providers Name Role Phone Alisha Kimball MD Primary Care Provider Reason for Visit Reason Comments HTN MANAGEMENT AND EDUCATION Encounter Details Date Type Department Care Team Description 05/07/2016 Office Visit [facility] Tesha Maxwell, Essential hypertension (Prim levy Dx); 205 [facility][1] PharmD Diabetes mellitus, type 2 (HRC) [place] [address] [facility] [phone] [place], [place] [address] Social History Tobacco Use [...] you have questions. Thanks, Tesha Maxwell PharmD [facility] on Wednesday & Wednesday [facility] on & Wednesday documented in this encounter [...] by mouth daily. New RX sent to [facility]. 2) Patient to have potassium and kidney [...] Results Creatinine / GFR (06/15/2016 4:28 PM NUCLEAR DESIGN ENGINEER) Analysis Performed At Patho logist Time Signature Creatinine 0.92 0.55 - [facility] 1.02 mg/dl LABORATORIES GFR, Estimated >60 >60 [facility] ml/min/1.7 LABORATORIES 3m2 GFR, Est., If >60 >60 [facility] Black ml/min/1.7 LABORATORIES 3m2 Specimen Anatomical Collection Method Collection Time Receive d Time (Source) Location / / Volume Laterality 06/15/2016 4:28 PM 6 4:29 NUCLEAR DESIGN ENGINEER PM NUCLEAR DESIGN ENGINEER Narrative [facility] - 06/15/2016 6:[address] Performed at [facility], [address] [place] [address] ??[phone] Alisha Kimball MD LAB_1 Performing Organization Address City/[facility] Phon e Number [facility] [phone] Potassium (06/15/2016 4:28 PM NUCLEAR DESIGN ENGINEER) P athologist Signature Potassium 4.2 3.5 - 5.1 [facility] mmol/L Specimen Anatomical Collection Method Collection Time Receive d Time (Source) Location / / Volume Laterality 06/15/2016 4:28 PM 6 4:29 NUCLEAR DESIGN ENGINEER PM NUCLEAR DESIGN ENGINEER Narrative [facility] - 06/15/2016 6:[address] Performed at [facility], [address] [place] [address] ??[phone] Alisha Kimball MD LAB_1 Performing Organization Address City/[facility] Phon e Number [facility] [phone] documented in this encounter Visit Diagnoses Diagnosis Essential hypertension (HRC) - Primary Unspecified essential hypertension Diabetes mellitus, type 2 (HRC) Type II or unspecified type diabetes dinora litus without mention of complication, not stated as uncontrolled Essential hypertension (HRC) Unspecified essential hypertension documented in this encounter Care Teams Crt Relationship Specialty Start Date End Date Alisha Kimball MD PCP - General 07/08/05 [address] [place] [address] documented as of this encounter
--- OUTSIDE RECORDS SUMMARY | 2022-04-13 07:37 | XMS_ITS | Encounter Summary ---
:1955 Author Organization [employer] Address [address] [place] [address] Care Team Providers Name Role Phone Alisha Kimball MD Primary Care Provider Reason for Visit Reason Comments HTN MANAGEMENT AND EDUCATION Encounter Details Date Type Department Care Team Description 09/12/2015 Office Visit [facility] Tesha Maxwell, Essential hypertension (Prim levy Dx); 205 [facility] PharmD Diabetes mellitus, type 2 (HRC) [place] [address] [address] [phone] [place], [place] [address] Social History Tobacco Use Types Packs/Day Years Used Date Smoking Tobacco: Never Smokeless Tobacco: Never Alcohol Use Standard Drinks/Week Comments No 0 (1 standard drink = 0.6 oz pure alcoho l) Sex Assigned at Date Recorded Not on file documented as of this encounter Last Filed Vital Signs Vital Sign Reading Time Taken Comments Blood Pressure 132/94 09/12/2015 7:53 AM OCEANOGRAPHY TEACHER Pulse 75 09/12/2015 7:53 AM OCEANOGRAPHY TEACHER Temperature - - Respiratory Rate - - [...] you have questions. Thanks, Tesha Maxwell PharmD [facility] on Wednesday & Wednesday [facility] on & Wednesday NOGRAPHY TEACHER documented in this encounter Progress Notes Tesha [...] scheduled for October 09 at 8:00am Updated [employer] med list and reviewed medications including indications with patient. Total time spent with patient 30 minutes. Tesha Maxwell PharmD Clinical Pharmacist Medication Therapy Management Program NOGRAPHY TEACHER documented in this encounter Plan of Treatment Not on filedocumented as of this encounter Visit Diagnoses Diagnosis Essential hypertension (HRC) - Primary Unspecified essential hypertension Diabetes mellitus, type 2 (HRC) Type II or unspecified type diabetes dinora litus without mention of complication, not stated as uncontrolled documented in this encounter Care Teams Sales Order Processor Relationship Specialty Start Date End Date Alisha Kimball MD PCP - General 07/08/05 [address] [place] [address] documented as of this encounter
--- OUTSIDE RECORDS SUMMARY | 2022-04-13 07:37 | XMS_ITS | Encounter Summary ---
:1955 Author Organization [facility] Address [address] [facility] [place] [address] Care Team Providers Name Role Phone Alisha Kimball MD Primary Care Provider Reason for Visit Procedure/Equipment (Routine) - Closed Specialty Diagnoses / Procedures Referred By Contact Refer red To Contact Diagnoses Encounter for screening for malignant neoplasm of colon Alisha Kimball MD [address] [place] [address] Referral ID Status Reason Start Date Expiration Date Visits Requ ested Visits Authorized [id number] Closed 12/09/2015 03/09/2017 1 1 Encounter Details Date Type Department Care Team Description 04/01/2016 [facility] Specialty Jean Claude Chauhan, Center Gastroenterol safia MERLOS [address] [place] [address] [place], [place] [phone] Social History Tobacco Use Types Packs/Day [...] Where can you learn more? Go to [employer]Yurpy and enter C571 in the search box. Current as of: May 24, 2015 Content Version: 108 ?? [phone] [employer]. Learning About Diverticulosis and Diverticulitis What are [...] Where can you learn more? Go to [employer]Yur[employer] and enter E426 in the search box. Current as of: May 24, 2015 Content Version: 108 ?? [phone] [employer]. documented in this encounter Progress Notes Jean [...] . documented in this encounter Results COLONOSCOPY [[id number]] (04/01/2016 8:03 AM CDT) Specimen (Source) Anatomical [...] Code(s): ?? --- Professional - -- ? 76803, PT , Colonoscopy, flexible; with biopsy, single ? or multip le Diagnosis Code(s): ?? --- Professional - -- ? Z12.11, E ncounter for screening for malignant ? neoplasm of colon ? K62.1, Re ctal polyp ? K57.30, D iverticulosis of large intestine without ? perforati on or abscess without bleeding CPT copyright 2015 [employer]. All rights reserved. The codes documented in this report are preliminary and upon retail agent review may be revised to meet current [...] - Await Path results. I will contact [facility] letter in 1-2 weeks. - High fiber diet. Procedure Code(s): --- Professional --- 67433, PT, Colonoscopy, flexible; with biopsy, single or multiple Diagnosis Code(s): --- Professional --- Z12.11, Encounter for screening for mal ignant neoplasm of colon K62.1, Rectal polyp K57.30, Diverticulosis of large intesti ne without perforation or abscess without bleeding CPT copyright 2015 [employer]. All rights reserved. The codes documented in this report are preliminary and upon retail agent review may be revised to meet current complianc e requirements. Attending Participation: MD Jean Claude Stanton, 04/01/2016 8:30:39 AM Number of Addenda: 0 Note Initiated On: 04/01/2016 8:03 AM Jean Claude Chauhan MD DIGESTIVE CARE Performing Organization Address City/State/ZIP Code Phon e Number GI (PROVATION) GI (PROVATION) [place], [place] Surgical Path - Colonoscopy (04/01/2016 7:00 AM CDT) [facility] gist Method Time Signature Histology (NOTE) REGIONS [...] is performed. ?? kds/04/02/2016 Denice Becerril MD [facility] Department of Pathology [address] [place] [address] ??[id number] Specimen Anatomical Collection Method Collection Time Receive d Time (Source) Location / / Volume Laterality COLON STRUCTURE / 04/01/2016 7:00 AM 03/06 Unknown CDT 11:14 AM CDT Jean Claude Chauhan MD LAB_1 Performing Organization Address City/State/ZIP Code Phon e Number [address] [phone] [address] [phone] documented in this encounter Visit Diagnoses Diagnosis [...] protocol. documented in this encounter Care Teams Rate Setter Relationship Specialty Start Date End Date Alisha Kimball MD PCP - General 07/08/[address] [place] [address] documented as of this encounter
--- OUTSIDE RECORDS SUMMARY | 2022-04-13 07:37 | XMS_ITS | Encounter Summary ---
:1955 Author Organization [facility] Address [address] [place] [address] Care Team Providers Name Role Phone Alisha Kimball MD Primary Care Provider Reason for Visit Reason Comments LAB TESTS, NOS Encounter Details Date Type Department Care Team Description 11/20/2015 Telephone [facility] Alisha Steinberg MD LAB TESTS, NOS [address] [facility]. [address] [place] [address] [place] [address] [phone] (Wo rk) Social History Tobacco Use Types [...] 12/03/2015 2:50 PM C DT Performed at [facility], [address] [place] [address] ??[phone] Alisha Kimball MD LAB_1 Performing Organization Address [facility] Phon e Number [facility] [phone] (ABNORMAL) ALT (SGPT) (11/30/2015 9:08 AM CDT) athologist Signature ALT (SGPT) 74 (H) 0 - 69 U/L [facility] Specimen Anatomical Collection Method Collection Time Receive d Time (Source) Location / / Volume Laterality 11/30/2015 9:08 AM 6 9:10 CDT AM CDT Narrative [facility] - 12/03/2015 12:22 PM CDT Performed at [facility], [address] [place] [address] ??[address] Alisha Kimball MD LAB_1 Performing Organization Address City/[facility] Phon e Number [facility] [phone] (ABNORMAL) HGB A1C (11/30/2015 9:08 AM CDT) [...] - 12/03/2015 12:24 PM CDT Performed at [facility], [address] [place] [address] ??[phone] Alisha Kimball MD LAB_1 Performing Organization Address [facility] Phon e Number [facility] [phone] (ABNORMAL) LIPID PANEL AND DIRECT LDL(IF NEEDED) [...] - 12/03/2015 12:22 PM CDT Performed at [facility], [address] [place] [address] ??[phone] Alisha Kimball MD LAB_1 Performing Organization Address [facility] Phon e Number [facility] [phone] SODIUM (11/30/2015 9:08 AM CDT) P athologist Signature Sodium 143 135 - 145 [facility] mmol/L Specimen Anatomical Collection Method Collection Time Receive d Time (Source) Location / / Volume Laterality 11/30/2015 9:08 AM 6 9:10 CDT AM CDT Narrative [facility] - 12/03/2015 12:22 PM CDT Performed at [facility], [address] [place] [address] ??[phone] Alisha Kimball MD LAB_1 Performing Organization Address [facility]/ZIP Code Phon e Number [facility] [phone] POTASSIUM (11/30/2015 9:08 AM CDT) P athologist Signature Potassium 4.8 3.5 - 5.3 [facility] mmol/L Specimen Anatomical Collection Method Collection Time Receive d Time (Source) Location / / Volume Laterality 11/30/2015 9:08 AM 6 9:10 CDT AM CDT Narrative [facility] - 12/03/2015 12:22 PM CDT Performed at [facility], [address] [place] [address] ??[phone] Alisha Kimball MD LAB_1 Performing Organization Address [facility] Code Phon e Number [facility] [phone] CREATININE / GFR (11/30/2015 9:08 AM CDT) [...] - 12/03/2015 12:22 PM CDT Performed at [facility], [address] [place] [address] ??[address] Alisha Kimball MD LAB_1 Performing Organization Address [facility] Phon e Number [facility] [phone] documented in this encounter Visit Diagnoses Diagnosis [...] uncontrolled documented in this encounter Care Teams Power Saw Operator Relationship Specialty Start Date End Date Alisha Kimball MD PCP - General 07/08/05 [address] [place] [address] documented as of this encounter
--- OUTSIDE RECORDS SUMMARY | 2022-04-13 07:37 | XMS_ITS | Encounter Summary ---
:1955 Author Organization [facility] Address [address] [place] [address] Care Team Providers Name Role Phone Alisha [...] Department Care Team Description 01/08/2016 Office Visit [facility] Abraham Rivas, Visit for eye and vision exa m (Primary Dx); [address] OD Presbyopia; [place] [address] Type 2 diabetes mellitus without complic ations ([facility]) [phone] [place] [address] Social History Tobacco Use Types [...] risks, benefits, potential complications andalternatives with your ethnology teacher. Fortunately, complications from cataract surgery are relatively [...] last eye exam was on 06/[facility] [address]. alfaro Diabetes is Type II (adult) [...] uncontrolled documented in this encounter Care Teams Software Trainer Relationship Specialty Start Date End Date Alisha Kimball MD PCP - General 07/08/05 [address] [place] [address] documented as of this encounter
--- OUTSIDE RECORDS SUMMARY | 2022-04-13 07:37 | XMS_ITS | Encounter Summary ---
:1955 Author Organization [facility] Address [address] [place] [address] Care Team Providers Name Role Phone Carroll Kimball MD Primary Care Provider Encounter Details Date Type Department Care Team Description 03/06/2016 Lab Visit [facility] Diabetes mellitus, type 2 [address] [place], [place] [phone] Social History Tobacco Use Types Packs/Day Years [...] Res ults for this CDT type 2 ([facility]) procedure are i n the results [...] AM 6 7:32 CDT AM CDT Narrative [facility] - 03/06/2016 12:43 PM CDT Performed at [facility], [address] [place] [address] ??[phone] Carroll Kimball MD LAB_1 Performing Organization Address City/State/ZIP Code Phon e Number [facility] [phone] documented in this encounter Visit Diagnoses Diagnosis Diabetes mellitus, type 2 (HRC) Type II or unspecified type diabetes dinora litus without mention of complication, not stated as uncontrolled documented in this encounter Care Teams Export Agent Relationship Specialty Start Date End Date Carroll Kimball MD PCP - General 07/08/05 [address] [place] [address] documented as of this encounter
--- OUTSIDE RECORDS SUMMARY | 2022-04-13 07:37 | XMS_ITS | Encounter Summary ---
:1955 Author Organization [facility] Address [address] [place] [address] Care Team Providers Name Role Phone Alisha Kimball MD Primary Care Provider Encounter Details Date Type Department Care Team Description 11/16/2016 Refill Order [facility] Alisha Kimball MD [address] [facility]. [address] [place] [address] [place] [address] (Wo rk) Social History Tobacco [...] 12/01/2016 1:01 PM C DT Performed at [facility], [address] [place] [address] ??[phone] Alisha Kimball MD LAB_1 Performing Organization Address City/State/ZIP Code Phon e Number [facility] [phone] documented in this encounter Visit Diagnoses Diagnosis [...] disorder documented in this encounter Care Teams Cable Placer Relationship Specialty Start Date End Date Alisha Kimball MD PCP - General 07/08/05 [address] [place] [address] documented as of this encounter
--- OUTSIDE RECORDS SUMMARY | 2022-04-13 07:37 | XMS_ITS | Encounter Summary ---
:1955 Author Organization [facility] Address [address] [place] [address] Care Team Providers Name Role Phone Carroll Avalos MD Primary Care Provider Reason for Visit Reason Comments Medication Questions amlodipine 10 mg Encounter Details Date Type Department Care Team Description 01/08/2016 Telephone [facility] Carroll Avalos MD Medication Questions Practice [address] (amlodipine 10 mg) [address] [place] [address] [place] [address] [phone] Social History Tobacco Use Types Packs/Day Years [...] documented in this encounter Nursing Notes Carroll Avalos MD - 01/13/2016 1:19 PM CDT [place]. [...] on filedocumented in this encounter Care Teams Display Artist Relationship Specialty Start Date End Date Carroll Avalos MD PCP - General 07/08/[address] [place] [address] documented as of this encounter
--- OUTSIDE RECORDS SUMMARY | 2022-04-13 07:37 | XMS_ITS | Encounter Summary ---
:1955 Author Organization [facility] Address [address] [place] [address] Care Team Providers Name Role Phone Alisha Kimball MD Primary Care Provider Encounter Details Date Type Department Care Team Description 05/04/2016 Lab Visit [facility] Essential hypertension [address] [place], [place] [address] Social History Tobacco Use [...] 05/04/2016 7:28 PM C DT Performed at [facility], [address] [place] [address] ??[phone] Alisha Kimball MD LAB_1 Performing Organization Address City/[facility] Phon e Number [facility] [phone] Potassium (05/04/2016 3:49 PM CDT) P athologist Signature Potassium 4.2 3.5 - 5.1 [facility] mmol/L Specimen Anatomical Collection Method Collection Time Receive d Time (Source) Location / / Volume Laterality 05/04/2016 3:49 PM 6 3:50 CDT PM CDT Narrative [facility] - 05/04/2016 7:28 PM C DT Performed at [facility], [address] [place] [address] ??[address] Alisha Kimball MD LAB_1 Performing Organization Address [facility] Phon e Number [facility] [phone] documented in this encounter Visit Diagnoses Diagnosis Essential hypertension (HRC) Unspecified essential hypertension documented in this encounter Care Teams Heavy Mobile Equipment Repairer Relationship Specialty Start Date End Date Alisha Kimball MD PCP - General 07/08/05 [address] [place] [address] documented as of this encounter
--- OUTSIDE RECORDS SUMMARY | 2022-04-13 07:37 | XMS_ITS | Encounter Summary ---
:1955 Author Organization [facility] Address [address] [place] [address] Care Team Providers Name Role Phone Alisha Kimball MD Primary Care Provider Reason for Visit Reason Comments Lab Orders Needed Encounter Details Date Type Department Care Team Description 11/18/2016 Telephone [facility] Alisha Steinberg MD Lab Orders Needed [address] [place] [address] [place], [place] [id number] (Wo rk) Social History Tobacco Use Types Packs/Day Years Used Date Smoking Tobacco: Never Smokeless Tobacco: Never Alcohol Use Standard Drinks/Week Comments No 0 (1 standard drink = 0.6 oz pure alcoho l) Sex Assigned at Date Recorded Not on file documented as of this encounter Nursing Notes Francesca Cho CMA - 11/18/2016 11:17 AM CDT Provider FYI Patient requesting for lab to be ordered before her RHM in 12/2016. TOT Bertha Han RN - 11/18/2016 10:57 AM CDT Future Appointment - Labs Needed Patient has been instructed to have lab work done before the next appointment. Labs that are needed: For RHM and A1c Upcoming appointment date: Future Appointments Date Time Provider Department Center 12/01/2016 7:30 AM LAB VISIT, SP SP LAB [facility] 12/07/2016 8:20 AM Alisha Kimball MD [place] 01/11/2017 9:00 AM [place] [facility] [place] 01/18/2017 11:00 AM Eric Keller OD WD OPT [id number] 04/22/2017 8:00 AM Tesha Maxwell PharmD SP Rx [facility] PCP: Alisha Kimball MD If Alisha Kimball MD is out of the clinic, is it okay to wait until they return? No Bertha Han RN [Transportation Assistant: Please help schedule an upcoming appointment for a lab visit.] Please route to: Care Team Pool Floresita Fuchs - 11/18/2016 10:29 AM CDT What referral/order is being requested: LABS Why is the referral/order needed: (What is the medical condition for which the referral is needed?):FOR RHM & A1C Is it okay to leave detailed message on your voicemail? YES [Transportation Assistant/Appt Center: If this call is after 3 p.m., communicate to patient: If we are not able to get back to you by the end of the day and your symptoms worsen please contact the Careline at [phone] OR at .] [Transportation Assistant: Please inform patient that a referral does not guarantee insurance coverage. Patients should call the member services number on the back of their insurance ID card to understand whatcoverage for the services they are requesting.] Is there anything else I can help you with today? NO Jessee Fuchs 11/18/2016, 10:29 AM documented in this encounter Plan of Treatment Not on filedocumented as of this encounter Results TSH (12/01/2016 7:14 AM CDT) P athologist Signature TSH, Sensitive 1.84 0.30 - [facility] uIU/ml Specimen Anatomical Collection Method Collection Time Receive d Time (Source) Location / / Volume Laterality 12/01/2016 7:14 AM 7 7:16 CDT AM CDT Narrative [facility] - 12/01/2016 1:13 PM C DT Performed at [address] ??[address] Alisha Kimball MD LAB_1 Performing Organization Address City/[facility] Phon e Number [facility] [phone] (ABNORMAL) ALT (SGPT) (12/01/2016 7:14 AM CDT) athologist Signature ALT (SGPT) 87 (H) 0 - 55 U/L [facility] Specimen Anatomical Collection Method Collection Time Receive d Time (Source) Location / / Volume Laterality 12/01/2016 7:14 AM 7 7:16 CDT AM CDT Narrative [facility] - 12/01/2016 1:01 PM C DT Performed at [address] ??[address] Alisha Kimball MD LAB_1 Performing Organization Address City/[facility] Phon e Number [facility] [phone] Potassium (12/01/2016 7:14 AM CDT) athologist Signature Potassium 3.9 3.5 - 5.1 [facility] mmol/L Specimen Anatomical Collection Method Collection Time Receive d Time (Source) Location / / Volume Laterality 12/01/2016 7:14 AM 7 7:16 CDT AM CDT Narrative [facility] - 12/01/2016 1:01 PM C DT Performed at [facility], [address] [place] [address] ??[phone] Alisha Kimball MD LAB_1 Performing Organization Address City/[facility] Phon e Number [facility] [phone] Creatinine / GFR (12/01/2016 7:14 AM CDT) Analysis Performed At Patho logist Time Signature Creatinine 0.77 0.55 - [facility] 1.02 mg/dl [facility] GFR, Estimated >60 >60 [facility] ml/min/1.7 [facility] 3m2 GFR, Est., If >60 >60 [facility] Black ml/min/1.7 [facility] 3m2 Specimen Anatomical Collection Method Collection Time Receive d Time (Source) Location / / Volume Laterality 12/01/2016 7:14 AM 7 7:16 CDT AM CDT Narrative [facility] - 12/01/2016 1:01 PM C DT Performed at [address] ??[address] Alisha Kimball MD LAB_1 Performing Organization Address [facility] Phon e Number [facility] [phone] Lipid Panel and Direct LDL(If Needed) (12/01/2016 7:14 AM CDT) [facility] gist Method Time Signature Hours Fasting 12 [...] 12/01/2016 1:01 PM C DT Performed at [facility], [address] [place] [address] ??[address] Alisha Kimball MD LAB_1 Performing Organization Address [facility] Phon e Number [facility] [phone] (ABNORMAL) Hgb A1c (12/01/2016 7:14 AM CDT) [...] 12/01/2016 1:00 PM C DT Performed at [facility], [address] ??[address] Alisha Kimball MD LAB_1 Performing Organization Address City/State/ZIP Code Phon e Number [facility] [phone] documented in this encounter Visit Diagnoses Diagnosis Diabetes mellitus, type 2 (HRC) - Primar y Type II or unspecified type diabetes dinora litus without mention of complication, not stated as uncontrolled Essential hypertension (HRC) Unspecified essential hypertension Hypercholesterolemia Pure hypercholesterolemia Screening for thyroid disorder Encounter for long-term (current) use of medications Encounter for long-term (current) use of other medications Diabetes mellitus, type 2 (HRC) Type II or unspecified type diabetes dinora litus without mention of complication, not stated as uncontrolled Hypercholesterolemia Pure hypercholesterolemia Essential hypertension (HRC) Unspecified essential hypertension Screening for thyroid disorder documented in this encounter Care Teams Haul Cane Brakeman Relationship Specialty Start Date End Date Alisha Kimball MD PCP - General 07/08/05 [address] [place] [address] documented as of this encounter
--- OUTSIDE RECORDS SUMMARY | 2022-04-13 07:37 | XMS_ITS | Encounter Summary ---
:1955 Author Organization [facility] Address [address] [place] [address] Care Team Providers Name Role Phone Alisha Kimball MD Primary Care Provider Reason for Visit Reason Comments FALL ARM PAIN SHOULDER PAIN Encounter Details Date Type Department Care Team Description 02/16/2016 Nurse Triage Careline Unknown, FALL; ARM PAIN; [address] Physician SHOULDER PAIN [place], [place] [address] [phone] [place], [place] [address] Social History Tobacco Use Types Packs/Day Years Used Date Smoking Tobacco: Never Smokeless Tobacco: Never Alcohol Use Standard Drinks/Week Comments No 0 (1 standard drink = 0.6 oz pure alcoho l) Sex Assigned at Date Recorded Not on file documented as of this encounter Nursing Notes Sonali Houston RN - 02/16/2016 4:32 PM CDT Protocol: SHOULDER [id number] Affirmative: Looks like a dislocated joint Disposition of Go To ED Now suggested. 1. MECHANISM: How did the injury happen? Response: fell on sidewalk Feels weak 2. ONSET: When did the injury happen? (Minutes or hours ago) Response: [id number] 3. APPEARANCE of INJURY: What does the injury look like? Response: Braces self with right arm 4. SEVERITY: Can you move the shoulder normally? Response: Raise Arm in fornt of ridge not able to raise on the side Can lift a little 6. PAIN: Is there pain? If so, ask: How bad is the pain? (e.g., Scale 1-10; or mild, moderate, severe) Response: Aching 4/10 8. OTHER SYMPTOMS: Do you have any other symptoms? (e.g., loss of sensation) Response: Increased weakness No break in skin - on knee Will be bruised Sonali Houston RN - 02/16/2016 4:25 PM CDT Verified and full name. Yes Situation/Symptom: Patient was walking and fell on sidewalk skinned chin hit knee But injured right shoulder Pertinent Medical history: Diabetes Type II BS checks in am 120's metformin Primary clinic [place] AV Reviewed Snapshot and medication that are pertinent to reason for call What were you planning to do if Careline not available Encouraged to call back anytime with any questions, concerns, changes in symptoms. Pt/caller verbalized understanding of recommendations, denies further questions and is agreeable to plan. Sonali Houston RN Johnna Hunt - 02/16/2016 4:15 PM CDT Which care system or clinic is the patient normally seen at? [facility]. Situation: Medical:Fell while walking today and injured her arm and shoulder. Does she need to be seen? Plan:A nurse will return your call. If your symptoms change for the worse, please call us back [phone].. documented in this encounter Plan of Treatment Not on filedocumented as of this encounter Visit Diagnoses Not on filedocumented in this encounter Care Teams Utilization Review Rn Relationship Specialty Start Date End Date Alisha Kimball MD PCP - General 07/08/05 [address] [place] [address] documented as of this encounter
--- OUTSIDE RECORDS SUMMARY | 2022-04-13 07:37 | XMS_ITS | Encounter Summary ---
:1955 Author Organization [facility] Address [address] [place] [address] Care Team Providers Name Role Phone Alisha Kimball MD Primary Care Provider Encounter Details Date Type Department Care Team Description 11/30/2015 Lab Visit [facility] Essential hyper tension; Laboratory Hypercholesterolemia (HRC); [address] [facility] Diabetes mellitus, type 2 (H RC) [place], [place] [address] Social History Tobacco Use [...] PM C DT Performed at [facility], [address] [place] [address] ??[address] Alisha Kimball MD LAB_1 Performing Organization Address [facility] Phon e Number [email or web address] [phone] (ABNORMAL) ALT (SGPT) (11/30/2015 9:08 AM CDT) P athologist Signature ALT (SGPT) 74 (H) 0 - 69 U/L [facility] Specimen Anatomical Collection Method Collection Time Receive d Time (Source) Location / / Volume Laterality 11/30/2015 9:08 AM 201 6 9:10 CDT AM CDT Narrative [facility] - 12/03/2015 12:22 PM CDT Performed at [facility], [address] [place] [address] ??[address] Alisha Kimball MD LAB_1 Performing Organization Address City/[facility] Phon e Number [email or web address] [phone] (ABNORMAL) HGB A1C (11/30/2015 9:08 AM CDT) [...] 12:24 PM CDT Performed at [facility], [address] [place] [address] ??[address] Alisha Kimball MD LAB_1 Performing Organization Address City/[facility] Phon e Number [facility] [phone] (ABNORMAL) LIPID PANEL AND DIRECT LDL(IF NEEDED) [...] 12:22 PM CDT Performed at [facility], [address] [place] [address] ??[address] Alisha Kimball MD LAB_1 Performing Organization Address [facility] Phon e Number [facility] [phone] SODIUM (11/30/2015 9:08 AM CDT) P athologist Signature Sodium 143 135 - 145 [facility] mmol/L Specimen Anatomical Collection Method Collection Time Receive d Time (Source) Location / / Volume Laterality 11/30/2015 9:08 AM 6 9:10 CDT AM CDT Narrative [facility] - 12/03/2015 12:22 PM CDT Performed at [facility], [address] [place] [address] ??[address] Alisha Kimball MD LAB_1 Performing Organization Address City/[facility] Phon e Number [facility] [phone] POTASSIUM (11/30/2015 9:08 AM CDT) P athologist Signature Potassium 4.8 3.5 - 5.3 [facility] mmol/L Specimen Anatomical Collection Method Collection Time Receive d Time (Source) Location / / Volume Laterality 11/30/2015 9:08 AM 6 9:10 CDT AM CDT Narrative [facility] - 12/03/2015 12:22 PM CDT Performed at [facility], [address] [place] [address] ??[address] Alisha Kimball MD LAB_1 Performing Organization Address [facility] Phon e Number [facility] [phone] CREATININE / GFR (11/30/2015 9:08 AM CDT) [...] 12:22 PM CDT Performed at [facility], [address] [place] [address] ??[address] Alisha Kimball MD LAB_1 Performing Organization Address City/[facility] Phon e Number [facility] [phone] documented in this encounter Visit Diagnoses Diagnosis Essential hypertension (HRC) Unspecified essential hypertension Hypercholesterolemia Pure hypercholesterolemia Diabetes mellitus, type 2 (HRC) Type II or unspecified type diabetes dinora litus without mention of complication, not stated as uncontrolled documented in this encounter Care Teams Human Resources Compliance Manager Relationship Specialty Start Date End Date Alisha Kimball MD PCP - General 07/08/05 [address] [place] [address] documented as of this encounter
--- OUTSIDE RECORDS SUMMARY | 2022-04-13 07:37 | XMS_ITS | Encounter Summary ---
:1955 Author Organization [facility] Address [address] [facility] [place] [address] Care Team Providers Name Role Phone Alisha Kimball MD Primary Care Provider Reason for Visit Reason Comments HTN MANAGEMENT AND EDUCATION Encounter Details Date Type Department Care Team Description 06/04/2016 Office Visit [facility] Hans, Tesha, Essential hypertension (Prim levy Dx); [address] [facility] PharmD Diabetes mellitus, type 2 (HRC); [place], [place] [address] Hypercholeste rolemia (HRC) [address] [facility] [phone] [place] [address] Social History Tobacco Use Types Packs/Day Years Used Date Smoking Tobacco: Never Smokeless Tobacco: Never Alcohol Use Standard Drinks/Week Comments No 0 (1 standard drink = 0.6 oz pure alcoho l) Sex Assigned at Date Recorded Not on file documented as of this encounter Last Filed Vital Signs Vital Sign Reading Time Taken Comments Blood Pressure 122/95 06/04/2016 7:49 AM DEMAND MANAGER Pulse 86 06/04/2016 7:49 AM DEMAND MANAGER Temperature - - Respiratory Rate - [...] if you have questions. Thanks, Gamal Jasmine ND MANAGER documented in this encounter Progress Notes Kenroy [...] for June 18 at 8:00 am. Updated muzu tv list and reviewed medications including indications with patient. Total time spent with patient 30 minutes. Monica Jasmine, PharmD IV Student Appointment conducted by student. Case discussed with student and I agree with student's plan/note. Tesha Maxwell PharmD 06/04/2016, 8:46 AM ND MANAGER documented in this encounter Plan of Treatment Not on filedocumented as of this encounter Visit Diagnoses Diagnosis Essential hypertension (HRC) - Primary Unspecified essential hypertension Diabetes mellitus, type 2 (HRC) Type II or unspecified type diabetes dinora litus without mention of complication, not stated as uncontrolled Hypercholesterolemia Pure hypercholesterolemia documented in this encounter Care Teams Paint Stock Clerk Relationship Specialty Start Date End Date Alisha Kimball MD PCP - General 07/08/05 [address] [place] [address] documented as of this encounter
--- OUTSIDE RECORDS SUMMARY | 2022-04-13 07:37 | XMS_ITS | Encounter Summary ---
:1955 Author Organization [facility] Address [address] [place] [address] Care Team Providers Name Role Phone Alisha Kimball MD Primary Care Provider Encounter Details Date Type Department Care Team Description 06/15/2016 Lab Visit [facility] Essential hypertension [address] [place], [place] [address] Social History Tobacco Use Types Packs/Day Years Used Date Smoking Tobacco: Never Smokeless Tobacco: Never Alcohol Use Standard Drinks/Week Comments No 0 (1 standard drink = 0.6 oz pure alcoho l) Sex Assigned at Date Recorded Not on file documented as of this encounter Progress Notes Tesha Maxwell PharmD - 06/17/2016 11:02 AM METAL MOULDER'S ASSISTANT Quick Note: Normal labs. Will discuss at clinic visit 06/18/16. Tesha Maxwell PharmD 06/17/2016, 11:02 AM L MOULDER'S ASSISTANT documented in this encounter Plan of Treatment Not on filedocumented as of this encounter Procedures Procedure Name Priority Date/Time Associated Diagnosis Comme nts CREATININE / GFR Routine 06/15/2016 4:28 PM Essential hyperten bobbi Results for this METAL MOULDER'S ASSISTANT procedure are i n the results section. POTASSIUM Routine 06/15/2016 4:28 PM Essential hypertension Results for this METAL MOULDER'S ASSISTANT procedure are i n the results section. documented in this encounter Results Creatinine / GFR (06/15/2016 4:28 PM METAL MOULDER'S ASSISTANT) Analysis Performed At Patho logist Time Signature Creatinine 0.92 0.55 - [facility] 1[facility] mg/dl [facility] GFR, Estimated >60 >60 [facility] ml/min/1.7 [facility] 3m2 GFR, Est., If >60 >60 [facility] ml/min/1.7 [facility] 3m2 Specimen Anatomical Collection Method Collection Time Receive d Time (Source) Location / / Volume Laterality 06/15/2016 4:28 PM 6 4:29 METAL MOULDER'S ASSISTANT PM METAL MOULDER'S ASSISTANT Narrative [facility] - 06/15/2016 6:[address] Performed at [facility], [address] [place] [address] ??[address] Alisha Kimball MD LAB_1 Performing Organization Address City/[facility] Phon e Number [facility] [phone] Potassium (06/15/2016 4:28 PM METAL MOULDER'S ASSISTANT) P athologist Signature Potassium 4.2 3.5 - 5.1 [facility] mmol/L Specimen Anatomical Collection Method Collection Time Receive d Time (Source) Location / / Volume Laterality 06/15/2016 4:28 PM 6 4:29 METAL MOULDER'S ASSISTANT PM METAL MOULDER'S ASSISTANT Narrative [facility] - 06/15/2016 6:[address] Performed at [facility], [address] [place] [address] ??[address] Alisha Kimball MD LAB_1 Performing Organization Address City/[facility] Phon e Number [facility] [phone] documented in this encounter Visit Diagnoses Diagnosis Essential hypertension (HRC) Unspecified essential hypertension documented in this encounter Care Teams Infrastructure Software Engineer Relationship Specialty Start Date End Date Alisha Kimball MD PCP - General 07/08/05 [address] [place] [address] documented as of this encounter
--- OUTSIDE RECORDS SUMMARY | 2022-04-13 07:37 | XMS_ITS | Encounter Summary ---
:1955 Author Organization [facility] Address [address], [place] [address] Care Team Providers Name Role Phone Alisha Kimball MD Primary Care Provider Reason for Visit Reason Onset Date Comments Refill 11/13/2015 Encounter Details Date Type Department Care Team Description 11/13/2015 Refill [facility] Tesha Maxwell PharmD Refill [address] [facility]. [address] [place] [address] [place], [place] [id number] (Wo rk) Social History Tobacco Use Types Packs/Day Years Used Date Smoking Tobacco: Never Smokeless Tobacco: Never Alcohol Use Standard Drinks/Week Comments No 0 (1 standard drink = 0.6 oz pure alcoho l) Sex Assigned at Date Recorded Not on file documented as of this encounter Nursing Notes Tesha Maxwell PharmD - 11/13/2015 7:34 AM CDT per CPA refill for metformin sent to [facility] pharmacy. Tesha Maxwell PharmD 11/13/2015, 7:35 AM documented in this encounter Plan of Treatment Not on filedocumented as of this encounter Visit Diagnoses Diagnosis Diabetes mellitus, type 2 (HRC) - Primar y Type II or unspecified type diabetes dinora litus without mention of complication, not stated as uncontrolled documented in this encounter Care Teams Community Health Program Representative Relationship Specialty Start Date End Date Alisha Kimball MD PCP - General 07/08/05 [address] [place] [place] [address] documented as of this encounter
--- OUTSIDE RECORDS SUMMARY | 2022-04-13 07:37 | XMS_ITS | Encounter Summary ---
:1955 Author Organization [facility] Address [address] [place] [address] Care Team Providers Name Role Phone Alisha Kimball MD Primary Care Provider Encounter Details Date Type Department Care Team Description 12/01/2016 Lab Visit [facility] Encounter for long-term (cur rent) use of medications; [address] [facility] Diabetes mellitus, type 2 (H RC); [place] [address] Hypercholesterolemia; [phone] Essential hyper tension; Screening for t hyroid [...] 12/01/2016 1:13 PM C DT Performed at [address] ??[id number] Alisha Kimball MD LAB_1 Performing Organization Address [facility] Phon e Number [facility] [phone] (ABNORMAL) ALT (SGPT) (12/01/2016 7:14 AM CDT) athologist Signature ALT (SGPT) 87 (H) 0 - 55 U/L [facility] Specimen Anatomical Collection Method Collection Time Receive d Time (Source) Location / / Volume Laterality 12/01/2016 7:14 AM 7 7:16 CDT AM CDT Narrative [facility] - 12/01/2016 1:01 PM C DT Performed at [facility], [address] [place] [address] ??[id number] Alisha Kimball MD LAB_1 Performing Organization Address [facility] Phon e Number [facility] [phone] Potassium (12/01/2016 7:14 AM CDT) P athologist Signature Potassium 3.9 3.5 - 5.1 [facility] mmol/L Specimen Anatomical Collection Method Collection Time Receive d Time (Source) Location / / Volume Laterality 12/01/2016 7:14 AM 7 7:16 CDT AM CDT Narrative [facility] - 12/01/2016 1:01 PM C DT Performed at [facility], [address] [place] [address] ??[id number] Alisha Kimball MD LAB_1 Performing Organization Address [facility] e Number [facility] [phone] Creatinine / GFR (12/01/2016 7:14 AM CDT) Analysis Performed At [facility] logist Time Signature Creatinine 0.77 0.55 - [...] PM C DT Performed at [facility], [address] [place] [address] ??[id number] Alisha Kimball MD LAB_1 Performing Organization Address City/State/[facility] Phon e Number [facility] [phone] Lipid Panel and Direct LDL(If Needed) (12/01/2016 [...] PM C DT Performed at [facility], [address] [place] [address] ??[id number] Alisha Kimball MD LAB_1 Performing Organization Address City/[facility]/ZIP Code Phon e Number [facility] [phone] (ABNORMAL) Hgb A1c (12/01/2016 7:14 AM CDT) [...] 12/01/2016 1:00 PM C DT Performed at [facility], [address] [place] [address] ??[id number] Alisha Kimball MD LAB_1 Performing Organization Address City/[facility] Code Phon e Number [facility] [phone] Sodium (12/01/2016 7:14 AM CDT) P athologist Signature Sodium 140 136 - 145 [facility] mmol/L Specimen Anatomical Collection Method Collection Time Receive d Time (Source) Location / / Volume Laterality 12/01/2016 7:14 AM 7 7:16 CDT AM CDT Narrative [facility] - 12/01/2016 1:01 PM C DT Performed at [facility], [address] [place] [address] ??[id number] Alisha Kimball MD LAB_1 Performing Organization Address City/State/ZIP Code Phon e Number [facility] [phone] documented in this encounter Visit Diagnoses Diagnosis Encounter for long-term (current) use of medications Encounter for long-term (current) use of other medications Diabetes mellitus, type 2 (HRC) Type II or unspecified type diabetes dinora litus without mention of complication, not stated as uncontrolled Hypercholesterolemia Pure hypercholesterolemia Essential hypertension (HRC) Unspecified essential hypertension Screening for thyroid disorder documented in this encounter Care Teams Injection Mold Technician Relationship Specialty Start Date End Date Alisha Kimball MD PCP - General 07/08/05 [address] [place] [address] documented as of this encounter
--- OUTSIDE RECORDS SUMMARY | 2022-04-13 07:37 | XMS_ITS | Encounter Summary ---
:1955 Author Organization [facility] Address [address] [address] Care Team Providers Name Role Phone Alisha Kimball MD Primary Care Provider Reason for Visit Reason Comments MEDICATION THERAPY MANAGEMENT Encounter Details Date Type Department Care Team Description 06/18/2016 Office Visit [facility] Tesha Maxwell, Essential hypertension [address] [facility] PharmD (Primary Dx) [place] [address] [address] [facility] [phone] [place], [place] [address] Social History Tobacco Use Types Packs/Day Years Used Date Smoking Tobacco: Never Smokeless Tobacco: Never Alcohol Use Standard Drinks/Week Comments No 0 (1 standard drink = 0.6 oz pure alcoho l) Sex Assigned at Date Recorded Not on file documented as of this encounter Last Filed Vital Signs Vital Sign Reading Time Taken Comments Blood Pressure 123/86 06/18/2016 7:39 AM FIRE SPRINKLER INSPECTOR Pulse 81 06/18/2016 7:39 AM FIRE SPRINKLER INSPECTOR Temperature - - Respiratory Rate - - Oxygen Saturation - - Inhaled Oxygen Concentration - - Weight - - Height - - Body Mass Index - - documented in this encounter Patient Instructions Patient InstructionsPeltTesha smith PharmD - 06/18/2016 7:34 AM CST 1) Your blood pressure is in goal range today. Continue on amlodipine 5mg daily, [id number] daily and losartan 50mg daily. 2) Your follow-up visit is scheduled for , September 24 at 8:00am. Please call me or e-mail if you have questions. Thanks, Tesha Maxwell PharmD [facility] on Wednesday & Wednesday [facility] on & Wednesday SPRINKLER INSPECTOR documented in this encounter Progress Notes Tesha [...] scheduled for September 24 at 8:00am. Updated [facility] med list and reviewed medications including indications with patient. Total time spent with patient 15 minutes. Tesha Maxwell PharmD Clinical Pharmacist Medication Therapy Management Program SPRINKLER INSPECTOR documented in this encounter Plan of Treatment Not on filedocumented as of this encounter Visit Diagnoses Diagnosis Essential hypertension (HRC) - Primary Unspecified essential hypertension documented in this encounter Care Teams Manager User Experience Relationship Specialty Start Date End Date Alisha Kimball MD PCP - General 07/08/[address] [place] [address] documented as of this encounter
--- OUTSIDE RECORDS SUMMARY | 2022-04-13 07:37 | XMS_ITS | Encounter Summary ---
:1955 Author Organization [facility] Address [address] [place] [address] Care Team Providers Name Role Phone Alisha Kimball MD Primary Care Provider Reason for Visit Reason Comments Disease Registry diabetes Encounter Details Date Type Department Care Team Description 05/22/2016 Telephone [facility] Alisha Kimball MD Disease Registry Practice [address] (diabetes) [address] [place] [address] [place], [place] [id number] [phone] Social History Tobacco Use Types Packs/Day Years Used Date Smoking Tobacco: Never Smokeless Tobacco: Never Alcohol Use Standard Drinks/Week Comments No 0 (1 standard drink = 0.6 oz pure alcoho l) Sex Assigned at Date Recorded Not on file documented as of this encounter Nursing Notes Tara Ricketts - 05/29/2016 12:11 PM CST Patient scheduled for 06/04/16 INE II COREMAKER Tara Ricketts - 05/22/2016 2:25 PM CST [facility] to schedule. INE II COREMAKER Francesca Cho CMA - 05/22/2016 2:01 PM [...] BP Check Francesca Cho 05/22/2016, 2:01 PM INE II COREMAKER documented in this encounter Plan of Treatment Not on filedocumented as of this encounter Visit Diagnoses Not on filedocumented in this encounter Care Teams Geriatric Assistant Relationship Specialty Start Date End Date Alisha Kimball MD PCP - General 07/08/05 [address] [place] [address] documented as of this encounter
--- OUTSIDE RECORDS SUMMARY | 2022-04-13 07:37 | XMS_ITS | Encounter Summary ---
:1955 Author Organization [facility] Address [address] [place] [address] Care Team Providers Name Role Phone Alisha Kimball MD Primary Care Provider Reason for Visit Reason Comments MEDICATION THERAPY MANAGEMENT Encounter Details Date Type Department Care Team Description 10/22/2016 Office Visit [facility] Tesha Maxwell, Essential hypertension (Prim levy Dx); [address] [facility] PharmD Diabetes mellitus, type 2 (HRC); [place], [place] [address] Hypercholeste rolemia [address] [facility] [phone] [place], [place] [id number] Social History Tobacco Use Types Packs/Day Years [...] [facility] & Wednesday [facility] on & Wednesday documented in this encounter [...] sooner if questions or concerns arise. Updated [employer] med list and reviewed medications including indications [...] hypercholesterolemia documented in this encounter Care Teams Medical Reimbursement Specialist Relationship Specialty Start Date End Date Alisha Kimball MD PCP - General 07/08/05 [address] [place] [address] documented as of this encounter
--- OUTSIDE RECORDS SUMMARY | 2022-04-13 07:37 | XMS_ITS | Encounter Summary ---
:1955 Author Organization [facility] Address [address] [place] [address] Care Team Providers Name Role Phone Alisha Kimball MD Primary Care Provider Reason for Referral Procedure/Equipment (Routine) - Incomplete Specialty Diagnoses / Procedures Referred By Contact Refer red To Contact Procedures Alisha Kimball MD MM Mammogram Screening [address] [place] [address] Referral ID Status Reason Start Date Expiration Date Visits V isits Requested Authorized [id number] Incomplete 01/08/2016 04/08/2017 1 1 Reason for Visit Procedure/Equipment (Routine) - Incomplete Specialty Diagnoses / Procedures Referred By Contact Refer red To Contact Procedures Alisha Kimball MD MM Mammogram Screening [address] [place] [address] Referral ID Status Reason Start Date Expiration Date Visits V isits Requested Authorized [id number] Incomplete 01/08/2016 04/08/2017 1 1 Encounter Details Date Type Department Care Team Description 01/08/2016 Imaging [facility] Mamm[facility] [address] [place] [address] Social History Tobacco Use Types [...] on filedocumented in this encounter Care Teams Market Analyst Relationship Specialty Start Date End Date Alisha Kimball MD PCP - General 07/08/05 [address] [place] [address] documented as of this encounter
--- OUTSIDE RECORDS SUMMARY | 2022-04-13 07:37 | XMS_ITS | Encounter Summary ---
:1955 Author Organization [facility] Address [address] [place] [address] Care Team Providers Name Role Phone Alisha [...] on filedocumented in this encounter Care Teams Cover Machine Operator Relationship Specialty Start Date End Date Alisha Kimball MD PCP - General 07/08/05 [address] [place], [place] [id number] documented as of this encounter
--- OUTSIDE RECORDS SUMMARY | 2022-04-13 07:37 | XMS_ITS | Encounter Summary ---
:1955 Author Organization [facility] Address [address] [place] [address] Care Team Providers Name Role Phone Alisha Kimball MD Primary Care Provider Reason for Visit Reason Comments HTN MANAGEMENT AND EDUCATION Encounter Details Date Type Department Care Team Description 12/09/2015 Office Visit [facility] Tesha Maxwell, Diabetes mellitus, type 2 (H RC) (Primary Dx); [address] PharmD Essential hypertension; [place] [address] [address] Hypercholesterolemia (HRC) [phone] [place] [address] Social History Tobacco Use Types [...] , March 12 at 8:00am at the [facility]. Please call me or e-mail if you have questions. Thanks, Anne MurrietaD [facility] on Wednesday & Wednesday [facility] on & Wednesday documented in [...] scheduled for March 12 at 8:00am Updated State med list and reviewed medications including indications [...] hypercholesterolemia documented in this encounter Care Teams Sign Language Interpreter Relationship Specialty Start Date End Date Alisha Kimball MD PCP - General 07/08/05 [address] [place] [address] documented as of this encounter
--- OUTSIDE RECORDS SUMMARY | 2022-04-13 07:37 | XMS_ITS | Encounter Summary ---
:1955 Author Organization [facility] Address [address] [place] [address] Care Team Providers Name Role Phone Carroll Avalos MD Primary Care Provider Reason for Visit Reason Comments Refill Metformin Encounter Details Date Type Department Care Team Description 11/16/2016 Refill [facility] Carroll Avalos MD Refill (Metformin) [address] [facility]. [address] [place] [address] [place] [address] (Wo rk) Social History Tobacco Use Types Packs/Day Years Used Date Smoking Tobacco: Never Smokeless Tobacco: Never Alcohol Use Standard Drinks/Week Comments No 0 (1 standard drink = 0.6 oz pure alcoho l) Sex Assigned at Date Recorded Not on file documented as of this encounter Nursing Notes Anne Neumann RN - 11/18/2016 8:14 AM CDT per standing order Anne Neumann RN 11/18/2016, 8:14 AM Lyn Payne - 11/18/2016 8:13 AM CDT Pt needs this refilled daniel. She is completely out of medication, and she is going out of town. Lyn Payne 11/18/2016, 8:13 AM Interface, Out Surescripts Prov Query - 11/16/2016 6:02 PM CDT metFORMIN XR (GLUCOPHAGE XR) 500 MG 24 hour release tablet [Pharmacy Med Name: METFORMIN HCL ER 500MG TB24] Protocol: Diabetes - Biguanides -> HgbA1C is not needed if being used for polycystic ovary treatment -> Refill x 3 months (until due for an office visit) Last qualifying visit: 12/09/2015 (in Family Practice) Next scheduled visit: 12/07/2016 (in Family Practice) Last ordered by CARROLL AVALOS K: 11/13/2015 (369 days ago) QTY: 360, Refills: 3, Sig: take 4 tabs bymouth daily with breakfast. (changed but equivalent) Cr: 0.92 mg/dL on 06/15/2016 HBA1C: 6.6 % on 03/06/2016 Powered by [employer], Reference: [id number], 11/16/2016 6:02:46 PM CDT, Pool: ARNOLD AMEZQUITA RN ([id number]) Interface, Out [employer] Query - 11/16/2016 6:02 PM CDT The following lab order(s) may be associated with the Result Note below: CREATININE / GFR Notes Recorded by Tesha Maxwell PharmD on 06/17/2016 at 11:02 AM Normal labs. Will discuss at clinic visit 06/18/16. Tesha Maxwell PharmD 06/17/2016, 11:02 AM documented in this encounter Plan of Treatment Not on filedocumented as of this encounter Visit Diagnoses Not on filedocumented in this encounter Care Teams Coding Quality Coordinator Relationship Specialty Start Date End Date Carroll Avalos MD PCP - General 07/08/05 [address] [place] [address] documented as of this encounter
--- OUTSIDE RECORDS SUMMARY | 2022-04-13 07:37 | XMS_ITS | Encounter Summary ---
:1955 Author Organization [facility] Address [address], [place] [address] Care Team Providers Name Role Phone Alisha Kimball MD Primary Care Provider Reason for Visit Reason Comments PHARMACIST COUNSELING diabetes Encounter Details Date Type Department Care Team Description 02/10/2016 Pharmacy [facility] [place] on PHARMACIST COUNSELING Pharmacy [address] [facility] (diabetes) [address] [place], [place] [address] [phone] (Wo rk) Social History Tobacco Use Types [...] ALISON BECKER 02/12/2016, 3:59 PM Brenton Pickard [facility] - 02/10/2016 10:42 AM CDT Topic / Disease State: Diabetes: Clinic Pharmacy Diabetes Encounter Notes Loc Velasco was at [facility] to speak with the pharmacist [...] twocopies of the Rx Diabetes Report Card (01827). One copy will be provided to the patient and the second copy will be used to complete Epic documentation after patient consultation occurs. Patient at Goal? Yes. Please document using .rphdoc after speaking with the patient. documented in this encounter Plan of Treatment Not on filedocumented as of this encounter Visit Diagnoses Not on filedocumented in this encounter Care Teams Local Intermodal Truck Driver Relationship Specialty Start Date End Date Alisha Kimball MD PCP - General 07/08/05 [address] [place] [address] documented as of this encounter
--- OUTSIDE RECORDS SUMMARY | 2022-04-13 07:37 | XMS_ITS | Encounter Summary ---
:1955 Author Organization [facility] Address [address] [place] [address] Care Team Providers Name Role Phone Alisha Kimball MD Primary Care Provider Reason for Referral Procedure/Equipment (Routine) - Closed Specialty Diagnoses / Procedures Referred By Contact Refer red To Contact Diagnoses Encounter for screening for malignant neoplasm of colon Alisha Kimball MD [address] [place] [address] Referral ID Status Reason Start Date Expiration Date Visits Requ ested Visits Authorized [id number] Closed 12/09/2015 03/09/2017 1 1 Scheduling Instructions Your provider has recommended an appoint ment for a screening colonoscopy with [facility] . You may call the [facility] at [phone] to schedule your colonoscopy. Screening colonoscopies are performed at [facility] in [place], as well as at [facility]. Reason for Visit Reason Comments ROUTINE HEALTH MAINTENANCE smartset Encounter Details Date Type Department Care Team Description 12/09/2015 Office Visit [facility] Alisha Kimball, [facility] (Primary Dx); Practice MD Screening for HIV (human immunodeficienc y virus); [address] Encounter for screening for malignant neoplasm of colon; [place] [address] [address] Need for hepatitis C screening test; [phone] [place], [place] Diabetes mellit us, type 2 (HRC); [address] Insomnia, unspecified type; [phone] [place] (seborrheic keratosis) (Work) Social History Tobacco [...] Where can you learn more? Go to [employer] and enter Y074 in the search box. Current as of: August 24, 2014 Content Version: 108 ?? [phone] [employer]. Colonoscopy: Before Your Procedure What is [...] living will and a durable power of assistant county attorney for health care. Bring a copy [...] not apply lotions, perfumes, deodorants, or nail divehi. ?? Take off all jewelry and piercings. [...] Where can you learn more? Go to [employer] and enter C315 in the search box. Current as of: May 24, 2015 Content Version: 108 ?? [id number] [employer]. documented in this encounter Progress Notes Alisha [...] 50 MG tablet 7. Skin tag L91.8 90491 DESTRUC BENIGN LESIONS; UP 14 Patient counseled: [...] AM 6 7:32 CDT AM CDT N[address] [facility] - 03/06/2016 12:43 PM CDT Performed at [facility], [address] [place] [id number] Alisha Kimball MD LAB_1 Performing Organization Address City/State/ZIP Code Phon e Number [facility] [phone] documented in this encounter Visit Diagnoses Diagnosis [...] uncontrolled documented in this encounter Care Teams Javascript Front End Developer Relationship Specialty Start Date End Date Alisha Kimball MD PCP - General 07/08/05 [address] [place] [address] documented as of this encounter
--- OUTSIDE RECORDS SUMMARY | 2022-04-13 07:37 | XMS_ITS | Encounter Summary ---
:1955 Author Organization [facility] Address [address] [place] [address] Care Team Providers Name Role Phone Alisha Kimball MD Primary Care Provider Reason for Referral Consult/Transfer Care (Routine) - Closed Specialty Diagnoses / Procedures Referred By Contact Refer red To Contact Diagnoses Alisha Hamilton MD [address] [place] [address] Referral ID Status Reason Start Date Expiration Date Visits Requ ested Visits Authorized [id number] Closed 12/07/2016 03/08/2018 1 1 Scheduling Instructions If an appointment with [facility] Ankle Surgery was advised and you have not been contacted to schedule that appo intment within 3 business days, please call [phone] for assistance. We suggest you call your [...] [address] Elevated liver enzymes; [place] [address] [place] [address] Need for hepatitis C screening test; [phone] Cb (Work) Social History Tobacco Use Types [...] this encounter Patient Instructions Patient InstructionsFrancesca Cho, ATTENDANT SALES - 12/07/2016 8:15 AM CDT Images from [...] can you learn more? 1. Go to [employer] or [employer]. 2. Enter Y074 in the search box. Current as of: January 21, 2016 Content Version: 11.2 ?? [id number] [employer], [employer]. Nonalcoholic Steatohepatitis (SMITH): Care Instructions Your Care [...] can you learn more? 1. Go to [employer] or [employer]. 2. Enter F761 in the search box. Current as of: February 11, 2016 Content Version: 11.2 ?? [id number] [employer], [employer]. documented in this encounter Progress Notes Alisha [...] HEP C recommended for patients born between 9913-6405 Liver Panel(Hepatic Function Panel) Hepatitis B Surface Antibody HBsAg (Hepatitis B Surface Antigen) ESR SELAM Screen Ceruoplasmin Ferritin Hepatitis A Antibody, IgG 4. Need for hepatitis C screening test Z11.59 HEP C recommended for patients born between 5138-8589 5. Bunion M21.619 Foot & Ankle/Podiatry Consult-Adult/Peds [...] A Antibody, IgG (12/07/2016 9:21 AM CDT) [facility] Method Time Signature Hepatitis A Negative POSR [facility] Ab, IgG (Non LABORATORIES Reactive) (A) Specimen Anatomical Collection Method Collection Time Receive d Time (Source) Location / / Volume Laterality 12/07/2016 9:21 AM 7 9:22 CDT AM CDT Narrative [facility] - 12/07/2016 5:10 PM C DT Performed at [facility], [address] [place] [address] ??[address] Alisha Kimball MD LAB_1 Performing Organization Address [facility] [place] Phon e Number [facility] [phone] Ferritin (12/07/2016 9:21 AM CDT) P athologist Signature Ferritin 114 9 - 204 [facility] ng/ml Specimen Anatomical Collection Method Collection Time Receive d Time (Source) Location / / Volume Laterality 12/07/2016 9:21 AM 7 9:22 CDT AM CDT Narrative [facility] - 12/07/2016 1:54 PM C DT Performed at [facility], [address] [place] [address] ??[id number] Alisha Kimball MD LAB_1 Performing Organization Address City/[facility] [place] Phon e Number [facility] [phone] Ceruoplasmin (12/07/2016 9:21 AM CDT) Component Value Ref Test Analysis Performed At Patholo gist Range Method Time Signature Ceruloplasmin 21 [facility] Reference range: 17 to 54 [facility] Unit: mg/dL Ceruloplasmin (NOTE) [facility] REFERENCE INTERVAL: Ceruloplasmin LABORATORIES Access complete set of age- and/or gender-specific reference ?? intervals for this test in the [employer] Counter Supply Worker y ?? ([employer] [address] www.[employer], Sadi Alba MD, Lab. Director Specimen Anatomical Collection Method Collection Time Receive d Time (Source) Location / / Volume Laterality 12/07/2016 9:21 AM 7 9:22 CDT AM CDT Narrative [facility] - 12/08/2016 1:54 PM C DT Performed by [facility], [address] [place], [place] [address] Alisha Kimball MD LAB_1 Performing Organization Address City/[facility] [place] Phon e Number [facility] [phone] SLEAM Screen (12/07/2016 9:21 AM CDT) Analysis Performed At Patho logist Time Signature SELAM Screen Negative NEG [facility] Specimen Anatomical Collection Method Collection Time Receive d Time (Source) Location / / Volume Laterality 12/07/2016 9:21 AM 7 9:22 CDT AM CDT Narrative [facility] - 12/08/2016 4:48 PM C DT Performed at [facility], [address] [place] [address] ??[address] Alisha Kimball MD LAB_1 Performing Organization Address City/[facility] [place] Phon e Number [facility] [phone] ESR (12/07/2016 9:21 AM CDT) P athologist Signature ESR 6 0 - 20 [facility] mm/hr Specimen Anatomical Collection Method Collection Time Receive d Time (Source) Location / / Volume Laterality 12/07/2016 9:21 AM 7 9:22 CDT AM CDT Narrative [facility] - 12/07/2016 2:59 PM C DT Performed at [facility], [address] [place] [address] ??[address] Alisha Kimball MD LAB_1 Performing Organization Address [facility] [place] Phon e Number [facility] [phone] HBsAg (Hepatitis B Surface Antigen) (12/07/2016 9:21 AM CDT) [facility] Signature HBsAg Negative (Non NEGNR [facility] Reactive) LABORATORIES Specimen Anatomical Collection Method Collection Time Receive d Time (Source) Location / / Volume Laterality 12/07/2016 9:21 AM 7 9:22 CDT AM CDT Narrative [facility] - 12/07/2016 5:10 PM C DT Performed at [address] ??[address] Alisha Kimball MD LAB_1 Performing Organization Address [facility] [place] Phon e Number [facility] [phone] (ABNORMAL) Hepatitis B Surface Antibody (12/07/2016 9:21 AM CDT) [facility] Signature Hep B Surf AB <2.0 (L) [...] 12/07/2016 5:11 PM C DT Performed at [address] ??[address] Alisha Kimball MD LAB_1 Performing Organization Address [facility] [place] Phon e Number [facility] [phone] (ABNORMAL) Liver Panel(Hepatic Function Panel) (12/07/2016 9:21 AM CDT) [facility] Signature Alkaline 85 40 - 150 [facility] [...] 12/07/2016 1:39 PM C DT Performed at [address] ??[address] Alisha Kimball MD LAB_1 Performing Organization Address [facility] [place] Phon e Number [facility] [phone] HEP C recommended for patients born between 3154-2624 (12/07/2016 9:21 AM CDT) [facility] Method Time Signature Anti-HCV Negative (Non NEGNR [facility] Reactive) LABORATORIES Comment: Antibodies to HCV not detected. Does not exclude the possibility of exposure to HCV. Specimen Anatomical Collection Method Collection Time Receive d Time (Source) Location / / Volume [facility] 12/07/2016 9:21 AM 7 9:22 CDT AM CDT Narrative [facility] - 12/07/2016 2:01 PM C DT Performed at [address] ??[address] Ailsha Kimball MD LAB_1 Performing Organization Address City/[facility] [place] Phon e Number [facility] [phone] documented in this encounter Visit Diagnoses Diagnosis [...] (LDH) documented in this encounter Care Teams Conveyancer Relationship Specialty Start Date End Date Alisha Kimball MD PCP - General 07/08/05 [address] [place] [address] documented as of this encounter
--- OUTSIDE RECORDS SUMMARY | 2022-04-13 07:38 | XMS_ITS | Encounter Summary ---
:1955 Author Organization [facility] Address [address] [place] [address] Care Team Providers Name Role Phone Alisha Kimball MD Primary Care Provider Encounter Details Date Type Department Care Team Description 11/05/2014 Orders Only [facility] Diabetes mellitus, type [address] ([facility]) [place] [address] Social History Tobacco Use Types [...] us, Results for this CDT type 2 ([facility]) procedure are i n the results section. documented in this encounter Results MICROALB/CREAT RATIO (11/05/2014 8:58 AM CDT) [facility] gist Method Time Signature Albumin, <0.5 [...] 11/05/2014 1:39 PM C DT Performed at [facility], [address] [place] [address] ??[address] Alisha Kimball MD LAB_1 Performing Organization Address City/State/ZIP Code Phon e Number [facility] [phone] documented in this encounter Visit Diagnoses Diagnosis Diabetes mellitus, type 2 (HRC) Type II or unspecified type diabetes dinora litus without mention of complication, not stated as uncontrolled documented in this encounter Care Teams Roll Scale Worker Relationship Specialty Start Date End Date Alisha Kimball MD PCP - General 07/08/05 [address] [place] [address] documented as of this encounter
--- OUTSIDE RECORDS SUMMARY | 2022-04-13 07:38 | XMS_ITS | Encounter Summary ---
:1955 Author Organization [facility] Address [address] [place] [address] Care Team Providers Name Role Phone Alisha Kimball MD Primary Care Provider Reason for Visit Reason Comments ROUTINE HEALTH MAINTENANCE Diabetic Foot Assessment Health Maintanence Declined hiv and hep c Encounter Details Date Type Department Care Team Description 11/05/2014 Office Visit [facility] Alisha Kimball, [facility] (Primary Dx); Practice MD Diabetes mellitus, type 2 (HRC); [address] [place] [address] [place], [place] [id number] Social History Tobacco Use Types Packs/Day Years [...] a Lab Onlyappointment online or by calling [phone]. For blood pressure: Hold the amlodipine for [...] Where can you learn more? Go to [employer] and enter Y074 in the search box. Current as of: October 26, 2013 Content Version: 10.3 ?? [id number] [employer]. documented in this encounter Progress Notes Alisha [...] Results MICROALB/CREAT RATIO (11/05/2014 8:58 AM CDT) [employer] gist Method Time Signature Albumin, <0.5 mg/dl [...] 11/05/2014 1:39 PM C DT Performed at [facility], [address] [place] [address] ??[address] Alisha Kimball MD LAB_1 Performing Organization Address City/State/[facility] Phon e Number [facility] [phone] documented in this encounter Visit Diagnoses Diagnosis [...] uncontrolled documented in this encounter Care Teams Verification Lead Relationship Specialty Start Date End Date Alisha Kimball MD PCP - General 07/08/05 [address] [place] [address] documented as of this encounter
--- OUTSIDE RECORDS SUMMARY | 2022-04-13 07:38 | XMS_ITS | Encounter Summary ---
:1955 Author Organization [facility] Address [address] [facility] [address] Care Team Providers Name Role Phone Alisha Kimball MD Primary Care Provider Reason for Visit Reason Comments Medication Questions Encounter Details Date Type Department Care Team Description 01/02/2015 Telephone [place] [facility] Alisha Kimball MD Medication Questions Medicine [address] [place] [address] [place], [place] [address] [phone] Social History Tobacco Use Types Packs/Day Years [...] new Accucheck Plus lancet device. Patient will apple picker when able. Tesha Maxwell PharmD 01/02/2015, 10:37 [...] on filedocumented in this encounter Care Teams Academic Support Coordinator Relationship Specialty Start Date End Date Alisha Kimball MD PCP - General 07/08/05 [address] [place] [address] documented as of this encounter
--- OUTSIDE RECORDS SUMMARY | 2022-04-13 07:38 | XMS_ITS | Encounter Summary ---
:1955 Author Organization [facility] Address [address] [place] [address] Care Team Providers Name Role Phone Alisha Kimball MD Primary Care Provider Reason for Visit Reason Comments Refill Encounter Details Date Type Department Care Team Description 2015 Refill [place] [facility] Alisha Remy MD Refill [address] [facility]. [address] [place] [address] [place], [place] [phone] (Wo rk) Social History Tobacco Use Types [...] DBP: 97.0mm Hg on 12/27/2014 Powered by [employer], Reference: [id number], 2015 9:48:30 PM CDT, Pool: ARNOLD REFILL RN ([id number]) documented in this encounter Plan of Treatment Not on filedocumented as of this encounter Visit Diagnoses Not on filedocumented in this encounter Care Teams Plunger Scoop Operator Relationship Specialty Start Date End Date Alisha Kimball MD PCP - General 07/08/05 [address] [place] [address] documented as of this encounter
--- OUTSIDE RECORDS SUMMARY | 2022-04-13 07:38 | XMS_ITS | Encounter Summary ---
:1955 Author Organization [facility] Address [address] [place] [address] Care Team Providers Name Role Phone Alisha Kimball MD Primary Care Provider Reason for Visit Reason Comments MEDICATION THERAPY MANAGEMENT Encounter Details Date Type Department Care Team Description 07/29/2015 Office Visit [facility] Tesha Maxwell, Diabetes mellitus, type 2 (H RC) (Primary Dx); [address] PharmD Essential hypertension; [place] [address] [address] Hypercholesterolemia (HRC) [phone] [place] [address] Social History Tobacco Use Types Packs/Day Years Used Date Smoking Tobacco: Never Smokeless Tobacco: Never Alcohol Use Standard Drinks/Week Comments No 0 (1 standard drink = 0.6 oz pure alcoho l) Sex Assigned at Date Recorded Not on file documented as of this encounter Last Filed Vital Signs Vital Sign Reading Time Taken Comments Blood Pressure 135/91 07/29/2015 8:03 AM SENIOR CONSUMER INSIGHTS CONSULTANT Pulse 72 07/29/2015 8:03 AM SENIOR CONSUMER INSIGHTS CONSULTANT Temperature - - Respiratory Rate - - Oxygen Saturation - - Inhaled Oxygen Concentration - - Weight 84.6 kg (186 lb 9.6 oz) 07/29/2015 7:51 AM SENIOR CONSUMER INSIGHTS CONSULTANT Height - - Body Mass Index 32.03 [...] for August 30 at 8:00am at the [facility] Please call me or e-mail if you have questions. Thanks, Tesha Maxwell PharmD [facility] on Wednesday & Wednesday [facility] on & Wednesday OR CONSUMER INSIGHTS CONSULTANT documented in this encounter Progress Notes Tesha [...] scheduled for August 30 at 8:00am. Updated [email or web address] med list and reviewed medications including indications with patient. Total time spent with patient 30 minutes. Tesha Maxwell PharmD Clinical Pharmacist Medication Therapy Management Program OR CONSUMER INSIGHTS CONSULTANT documented in this encounter Plan of Treatment Not on filedocumented as of this encounter Visit Diagnoses Diagnosis Diabetes mellitus, type 2 (HRC) - Primar y Type II or unspecified type diabetes dinora litus without mention of complication, not stated as uncontrolled Essential hypertension (HRC) Unspecified essential hypertension Hypercholesterolemia Pure hypercholesterolemia documented in this encounter Care Teams Stripper And Opaquer Apprentice Relationship Specialty Start Date End Date Alisha Kimball MD PCP - General 07/08/05 [address] [place] [address] documented as of this encounter
--- OUTSIDE RECORDS SUMMARY | 2022-04-13 07:38 | XMS_ITS | Encounter Summary ---
:1955 Author Organization [facility] Address [address] [place] [address] Care Team Providers Name Role Phone Alisha Kimball MD Primary Care Provider Reason for Visit Procedure/Equipment (Routine) - Incomplete Specialty Diagnoses / Procedures Referred By Contact Refer red To Contact Procedures David Kat MD US PELVIS COMPLETE W IVT [address] ([facility] [place] [place] [address] Referral ID Status Reason Start Date Expiration Date Visits V isits Requested Authorized [id number] Incomplete 08/24/2014 1 1 Encounter Details Date Type Department Care Team Description 08/24/2014 Imaging [facility]iology Ul trasound David Kat MD [address] [place] [address] Social History Tobacco Use Types Packs/Day [...] PM Res ults for this W EV DRAWER IN procedure are i n the results section. documented in this encounter Results US PELVIS COMPLETE W IVT (RH/H[facility]) (08/24/2014 3:20 PM DRAWER IN) Anatomical Region Laterality Modality Pelvis Ultrasound Specimen (Source) Anatomical Collection Method Collection Time Re ceived Time Location / / Volume Laterality 08/24/2014 3:20 PM DRAWER IN Narrative 08/24/2014 4:34 PM DRAWER IN US PELVIS COMPLETE W/IVT (UTERUS/OVARIES) 08/24/2014 3:20 [...] post hysterectomy. 2. Nonvisualization of the ovaries. Davdi Kat MD [facility] US documented in this encounter Visit Diagnoses Not on filedocumented in this encounter Care Teams Parking Lot Supervisor Relationship Specialty Start Date End Date Alisha Kimball MD PCP - General 07/08/05 [address] [place] [address] documented as of this encounter
--- OUTSIDE RECORDS SUMMARY | 2022-04-13 07:38 | XMS_ITS | Encounter Summary ---
:1955 Author Organization [facility] Address [address] [place] [address] Care Team Providers Name Role Phone Alisha Kimball MD Primary Care Provider Reason for Referral Procedure/Equipment (Routine) - Incomplete Specialty Diagnoses / Procedures Referred By Contact Refer red To Contact Procedures Provider, Not On File MAMMOGRAM SCREENING BILATERAL [address] [place] [address] Referral ID Status Reason Start Date Expiration Date Visits V isits Requested Authorized [id number] Incomplete 11/05/2014 1 1 Reason for Visit Procedure/Equipment (Routine) - Incomplete Specialty Diagnoses / Procedures Referred By Contact Refer red To Contact Procedures Provider, Not On File MAMMOGRAM SCREENING BILATERAL [address] [place] [address] Referral ID Status Reason Start Date Expiration Date Visits V isits Requested Authorized [id number] Incomplete 11/05/2014 1 1 Encounter Details Date Type Department Care Team Description 11/05/2014 Imaging [facility] Mammography [address] [place], [place] [phone] Social History Tobacco Use Types Packs/Day Years [...] filedocumented in this encounter Care Teams Assistant Track Coach Relationship Specialty Start Date End Date Alisha Kimball MD PCP - General 07/08/05 [address] [place] [address] documented as of this encounter
--- OUTSIDE RECORDS SUMMARY | 2022-04-13 07:38 | XMS_ITS | Encounter Summary ---
:1955 Author Organization [facility] Address [address] [place] [address] Care Team Providers Name Role Phone Alisha Kimball MD Primary Care Provider Reason for Visit Reason Comments LAB TESTS, NOS Encounter Details Date Type Department Care Team Description 07/25/2015 Telephone [facility] Alisha Steinberg MD LAB TESTS, NOS [address] [facility]. [address] [place] [address] [place] [address] [phone] (Wo rk) Social History Tobacco Use Types Packs/Day Years Used Date Smoking Tobacco: Never Smokeless Tobacco: Never Alcohol Use Standard Drinks/Week Comments No 0 (1 standard drink = 0.6 oz pure alcoho l) Sex Assigned at Date Recorded Not on file documented as of this encounter Nursing Notes Francesca Cho CMA - 07/25/2015 8:07 AM CST Lab ordered T INSPECTOR Yudy Werner - 07/25/2015 8:04 AM CST Patient on Lab Only Visit Schedule, no lab orders found in patient's chart. Please review and enter Future Lab Orders or notify the patient that lab work is not needed. Lab Only Visit scheduled for:07-27-15 After placing Future Orders, please route this Telephone Encounter to the following pool: AV LAB -A1C T INSPECTOR documented in this encounter Plan of Treatment Not on filedocumented as of this encounter Results (ABNORMAL) HGB A1C (07/27/2015 9:21 AM PRINT INSPECTOR) P athologist Signature Hgb A1c 7.2 (H) [...] Volume Laterality 07/27/2015 9:21 AM 6 9:23 PRINT INSPECTOR AM PRINT INSPECTOR Narrative [facility] - 07/29/2015 11:47 AM PRINT INSPECTOR Performed at [facility], [address] [place] [address] ??[id number] Alisha Kimball MD LAB_1 Performing Organization Address City/State/ZIP [facility] Phon e Number [facility] [phone] documented in this encounter Visit Diagnoses Diagnosis Diabetes mellitus, type 2 (HRC) - Primar y Type II or unspecified type diabetes dinora litus without mention of complication, not stated as uncontrolled Diabetes mellitus, type 2 (HRC) Type II or unspecified type diabetes dinora litus without mention of complication, not stated as uncontrolled documented in this encounter Care Teams Pointing Machine Operator Relationship Specialty Start Date End Date Alisha Kimball MD PCP - General 07/08/05 [address] [place] [address] documented as of this encounter
--- OUTSIDE RECORDS SUMMARY | 2022-04-13 07:38 | XMS_ITS | Encounter Summary ---
:1955 Author Organization [facility] Address [address] [place] [address] Care Team Providers Name Role Phone Alisha Kimball MD Primary Care Provider Encounter Details Date Type Department Care Team Description 07/27/2015 Orders Only [facility] Diabetes mellitus, type 2 [address] [facility]) [place], [place] [address] Social History Tobacco Use [...] AM Diabetes mellitus, Res ults for this ANALYTICAL TECH type 2 ([facility]) procedure are i n the results section . documented in this encounter Results (ABNORMAL) HGB A1C (07/27/2015 9:21 AM ANALYTICAL TECH) athologist Signature Hgb A1c 7.2 (H) 4.3 [...] Volume Laterality 07/27/2015 9:21 AM 6 9:23 ANALYTICAL TECH AM ANALYTICAL TECH Narrative [facility] - 07/29/2015 11:47 AM ANALYTICAL TECH Performed at [facility], [address] [place] [address] Alisha Kimball MD LAB_1 Performing Organization Address City/State/ZIP Code Phon e Number [facility] [phone] documented in this encounter Visit Diagnoses Diagnosis Diabetes mellitus, type 2 (HRC) Type II or unspecified type diabetes dinora litus without mention of complication, not stated as uncontrolled documented in this encounter Care Teams Baker Chef Relationship Specialty Start Date End Date Alisha Kimball MD PCP - General 07/08/05 [address] [place] [address] documented as of this encounter
--- OUTSIDE RECORDS SUMMARY | 2022-04-13 07:38 | XMS_ITS | Encounter Summary ---
:1955 Author Organization [facility] Address [address] [place] [address] Care Team Providers Name Role Phone Alisha Kimball MD Primary Care Provider Reason for Visit Reason Onset Date Comments Medication Questions 12/17/2014 Encounter Details Date Type Department Care Team Description 12/17/2014 Telephone [facility] Tesha Maxwell, Medication Questions [address] [facility] [place] [address] [address] [facility] [phone] [place], [place] [address] (Wo rk) Social History [...] back, requesting Accu-Chek Edilma be sent to [facility]. Tesha Maxwell PharmD - 12/17/2014 2:22 [...] on filedocumented in this encounter Care Teams Food Order Delivery Runner Relationship Specialty Start Date End Date Alisha Kimball MD PCP - General 07/08/05 [address] [place] [address] documented as of this encounter
--- OUTSIDE RECORDS SUMMARY | 2022-04-13 07:38 | XMS_ITS | Encounter Summary ---
:1955 Author Organization [facility] Address [address] [place] [address] Care Team Providers Name Role Phone Alisha [...] call. David Kat MD 08/28/2014, 5:20 PM TRUCK MILK RECEIVER documented in this encounter Plan of Treatment Not on filedocumented as of this encounter Visit Diagnoses Not on filedocumented in this encounter Care Teams Napping Machine Operator Relationship Specialty Start Date End Date Alisha Kimball MD PCP - General 07/08/[address] [place], [place] [phone] documented as of this encounter
--- OUTSIDE RECORDS SUMMARY | 2022-04-13 07:38 | XMS_ITS | Encounter Summary ---
:1955 Author Organization [employer] Address [address] [place] [address] Care Team Providers Name Role Phone Alisha Kimball MD Primary Care Provider Reason for Visit Reason Comments MEDICATION THERAPY MANAGEMENT SEGIP Encounter Details Date Type Department Care Team Description 11/05/2014 Office Visit [facility] Tesha Maxwell, Diabetes mellitus, type 2 (H RC) (Primary Dx); [address] PharmD Essential hypertension; [place] [address] [address] Hypercholesterolemia [phone] [place], [place] [phone] Social History Tobacco Use Types Packs/Day Years [...] you have questions. Thanks, Tesha Maxwell PharmD [facility] on Wednesday & Wednesday: [phone] [phone] [facility] on & Wednesday: [phone] documented in this encounter Progress Notes [...] me in 6 month(s) for follow-up. Updated Avenida list and reviewed medications including indications with [...] hypercholesterolemia documented in this encounter Care Teams Sas Clinical Programmer Relationship Specialty Start Date End Date Alisha Kimball MD PCP - General 07/08/05 [address] [place] [address] documented as of this encounter
--- OUTSIDE RECORDS SUMMARY | 2022-04-13 07:38 | XMS_ITS | Encounter Summary ---
:1955 Author Organization [facility] Address [address], [place] [address] Care Team Providers Name Role Phone Alisha Kimball MD Primary Care Provider Reason for Visit Reason Comments JERSEY TREVINO MD ear pain Encounter Details Date Type Department Care Team Description 12/27/2014 Office Visit [facility] Treasure Pak (upper respiratory infection) (Primary Dx); Rakesh Mcmahon MD Sore throat [address] [facility] [address] [place] [address] [phone] Social History Tobacco Use Types Packs/Day Years [...] negative screen?: No (12/27/2014 10:27 AM CDT) [facility] gist Method Time Signature Grp A Rapid Negative NEG [facility] Specimen Anatomical Collection Method Collection Time Receive d Time (Source) Location / / Volume Laterality 12/27/2014 10:27 12/27/2014 AM CDT 10:28 AM CDT Narrative [facility] - 12/27/2014 10:36 AM CDT Performed at [facility], [address] [place] [address] Treasure Pak MD LAB_1 Performing Organization Address City/State/ZIP Code Phon e Number [facility] [phone] documented in this encounter Visit Diagnoses Diagnosis URI (upper respiratory infection) - Prim levy Acute upper respiratory infections of un specified site Sore throat Acute pharyngitis documented in this encounter Care Teams Measurement Technician Relationship Specialty Start Date End Date Alisha Kimball MD PCP - General 07/08/05 [address] [place] [address] documented as of this encounter
--- OUTSIDE RECORDS SUMMARY | 2022-04-13 07:38 | XMS_ITS | Encounter Summary ---
:1955 Author Organization [email or web address] Address [address] [place] [address] Care Team Providers Name Role Phone Alisha Kimball MD Primary Care Provider Reason for Visit Reason Comments Refill Encounter Details Date Type Department Care Team Description 09/11/2014 [facility]ill [facility] Alisha Steinberg MD Refill [address] [facility]. [address] [place] [address] [place], [place] [phone] (Wo rk) Social History Tobacco Use Types [...] Query - 09/11/2014 7:15 AM CDT ACCU-CHEK SATCEY PLUS strip [Pharmacy Med Name: ACCU-CHEK STACEY [...] two times a day. (changed) Powered by [employer], Reference: [id number], 09/11/2014 7:15:14 AM CDT, Pool: ARNOLD AMEZQUITA RN ([id number]) documented in this encounter Plan of Treatment Not on filedocumented as of this encounter Visit Diagnoses Not on filedocumented in this encounter Care Teams Punch Hand Relationship Specialty Start Date End Date Alisha Kimball MD PCP - General 07/08/05 [address] [place] [address] documented as of this encounter
--- OUTSIDE RECORDS SUMMARY | 2022-04-13 07:38 | XMS_ITS | Encounter Summary ---
:1955 Author Organization [facility] Address [address], [place] [address] Care Team Providers Name Role Phone Alisha Kimball MD Primary Care Provider Reason for Visit Reason Comments Refill Encounter Details Date Type Department Care Team Description 2015 Refill [facility] Alisha Remy MD Refill [address] [facility]. [address] [place] [address] [place], [place] [phone] (Wo rk) Social History Tobacco Use Types [...] - LDL: 87.0mg/dL on 10/27/2014 Powered by [employer], Reference: [id number], 2015 9:48:30 PM CDT, Pool: [place] REFILL RN ([id number]) documented in this encounter Plan of Treatment Not on filedocumented as of this encounter Visit Diagnoses Not on filedocumented in this encounter Care Teams Dimpling Machine Operator Relationship Specialty Start Date End Date Alisha Kimball MD PCP - General 07/08/05 [address] [place] [address] documented as of this encounter
--- OUTSIDE RECORDS SUMMARY | 2022-04-13 07:38 | XMS_ITS | Encounter Summary ---
:1955 Author Organization [employer] Address [address], [place] [address] Care Team Providers Name Role Phone Alisha Kimball MD Primary Care Provider Reason for Visit Reason Comments PHARMACIST COUNSELING diabetes Encounter Details Date Type Department Care Team Description 05/23/2015 Pharmacy [facility] [place] on PHARMACIST COUNSELING Pharmacy [address] [facility] (diabetes) [address] [place], [place] [phone] (Wo rk) Social History Tobacco Use Types [...] be closed. Brenton Pickard 05/24/2015, 2:54 PM L D RN Brenton Pickard RPh - 05/23/2015 12:53 PM CST Topic / Disease State: Diabetes: Clinic Pharmacy Diabetes Encounter Notes Loc Velasco was at [facility] to speak with the pharmacist about [...] twocopies of the Rx Diabetes Report Card (43221). One copy will be provided to the patient and the second copy will be used to complete Epic documentation after patient consultation occurs. Patient at Goal? No. Please document using .rphdoc after speaking with the patient. L D RN documented in this encounter Plan of Treatment Not on filedocumented as of this encounter Visit Diagnoses Not on filedocumented in this encounter Care Teams Quality Tech Relationship Specialty Start Date End Date Alisha Kimball MD PCP - General 07/08/05 [address] [place] [address] documented as of this encounter
--- OUTSIDE RECORDS SUMMARY | 2022-04-13 07:39 | XMS_ITS | Encounter Summary ---
:1955 Author Organization [facility] Address [address], [place] [address] Care Team Providers Name Role Phone Alisha Kimball MD Primary Care Provider Reason for Visit Reason Comments Refill Encounter Details Date Type Department Care Team Description 12/09/2013 Refill [facility] Alisha Steinberg MD Refill [address] [facility]. [address] [place] [address] [place], [place] [phone] (Wo rk) Social History Tobacco Use Types [...] - LDL: 78.0mg/dL on 10/30/2013 Powered by [employer], Reference: [id number], 12/09/2013 2:55:15 PM CDT documented in this encounter Plan of Treatment Not on filedocumented as of this encounter Visit Diagnoses Diagnosis Unspecified essential hypertension (HRC) Unspecified essential hypertension Pure hypercholesterolemia documented in this encounter Care Teams Pot Annealer Relationship Specialty Start Date End Date Alisha Kimball MD PCP - General 07/08/[address] [place] [address] documented as of this encounter
--- OUTSIDE RECORDS SUMMARY | 2022-04-13 07:39 | XMS_ITS | Encounter Summary ---
:1955 Author Organization [facility] Address [address] [place] [address] Care Team Providers Name Role Phone Alisha Kimball MD Primary Care Provider Reason for Visit Reason Comments LAB RESULTS A1C Encounter Details Date Type Department Care Team Description 04/19/2014 Telephone [facility] Alisha Steinberg MD LAB RESULTS (A1C) [address] [facility]. [address] [place] [address] [place], [place] [phone] (Wo rk) Social History Tobacco Use Types Packs/Day Years Used Date Smoking Tobacco: Never Smokeless Tobacco: Never Alcohol Use Standard Drinks/Week Comments No 0 (1 standard drink = 0.6 oz pure alcoho l) Sex Assigned at Date Recorded Not on file documented as of this encounter Nursing Notes Nikkie Eason RN - 04/20/2014 9:02 AM CDT Pt informed of entire PCP message below. Pt states understanding and agrees with plan of care. No further questions at this time.Nikkie Eason RN 04/20/2014, 9:02 AM Francesca Winn CMA - 04/19/2014 9:55 AM CDT Left message to call back. Alisha Kimball MD - 04/19/2014 7:57 AM CDT Please call the patient. A1C is up a lot (7.0--->7.9). Please verify metformin dose of 1000 mg once in the morning. If no side effects, recommend increased dose of 2000 mg once daily in the morning.A1C in 4-6 weeks. Please also offer physical education specialist and diabetes education visits. Thanks! Alisha Kimball MD documented in this encounter Plan of Treatment Not on filedocumented as of this encounter Visit Diagnoses Not on filedocumented in this encounter Care Teams Last Turner Relationship Specialty Start Date End Date Alisha Kimball MD PCP - General 07/08/05 [address] [place] [address] documented as of this encounter
--- OUTSIDE RECORDS SUMMARY | 2022-04-13 07:39 | XMS_ITS | Encounter Summary ---
:1955 Author Organization [facility] Address [address] [place] [address] Care Team Providers Name Role Phone Alisha Kimball MD Primary Care Provider Encounter Details Date Type Department Care Team Description 01/13/2013 Orders Only [facility] Diabetes mellitus type II [address] (HRC) [place] [address] Social History Tobacco Use Types [...] AM 3 7:38 CDT AM CDT Narrative [facility] - 01/13/2013 12:39 PM CDT Performed at [facility], [address] [place] [phone] Alisha Kimball MD LAB_1 Performing Organization Address [facility] Phon e Number [facility] [phone] (ABNORMAL) HGB A1C (01/13/2013 7:33 AM CDT) [...] AM 3 7:38 CDT AM CDT Narrative [facility] - 01/13/2013 3:07 PM C DT Performed at [facility], [address] [place] [address] ??[id number] Alisha Kimball MD LAB_1 Performing Organization Address [facility] e Number [facility] [phone] documented in this encounter Visit Diagnoses Diagnosis Diabetes mellitus type II (HRC) Type II or unspecified type diabetes dinora litus without mention of complication, not stated as uncontrolled documented in this encounter Care Teams Cable Braider Relationship Specialty Start Date End Date Alisha Kimball MD PCP - General 07/08/05 [address] [place] [address] documented as of this encounter
--- OUTSIDE RECORDS SUMMARY | 2022-04-13 07:39 | XMS_ITS | Encounter Summary ---
:1955 Author Organization [facility] Address [address] [place] [address] Care Team Providers Name Role Phone Alisha Kimball MD Primary Care Provider Encounter Details Date Type Department Care Team Description 12/16/2012 Orders Only [facility] Diabetes mellitus type II (H RC); [address] Hypercholesterolemia; [place] [address] Elevated liver enzymes [phone] Social History Tobacco Use Types Packs/Day Years [...] 12/16/2012 2:00 PM C DT Performed at [facility], [address] [place] [address] ??[phone] Alisha Kimball MD LAB_1 Performing Organization Address [facility] Phon e Number [facility] [phone] LIVER PANEL(HEPATIC FUNCTION PANEL) (12/16/2012 7:33 AM CDT) [facility] my4oneone Method Time Signature Alkaline 90 38 - [...] 12:42 PM CDT Performed at [facility], [address] [place] [address] ??[phone] Alisha Kimball MD LAB_1 Performing Organization Address City/[facility] Phon e Number [facility] [phone] LIPID PANEL AND DIRECT LDL(IF NEEDED) (12/16/2012 7:33 AM CDT) [facility] my4oneone Method Time Signature Hours Fasting 12 hours [...] 12:42 PM CDT Performed at [facility], [address] [place] [address] ??[id number] Alisha Kimball MD LAB_1 Performing Organization Address City/State/[facility] Code Phon e Number [facility] [phone] documented in this encounter Visit Diagnoses Diagnosis Diabetes mellitus type II (HRC) Type II or unspecified type diabetes dinora litus without mention of complication, not stated as uncontrolled Hypercholesterolemia Pure hypercholesterolemia Elevated liver enzymes Nonspecific elevation of levels of trans aminase or lactic acid dehydrogenase (LDH) documented in this encounter Care Teams Mathematics Faculty Member Relationship Specialty Start Date End Date Alisha Kimball MD PCP - General 07/08/05 [address] [place], [place] [phone] documented as of this encounter
--- OUTSIDE RECORDS SUMMARY | 2022-04-13 07:39 | XMS_ITS | Encounter Summary ---
:1955 Author Organization [facility] Address [address] [facility] [place] [address] Care Team Providers Name Role Phone Alisha Kimball MD Primary Care Provider Encounter Details Date Type Department Care Team Description 09/24/2013 Notes/Orders [facility] Alisha Kimball, Issue of repeat Practice MD prescriptions (Primary [address] [place]x) [place] [address] [place], [place] [phone] [facility] Social History Tobacco Use Types Packs/Day Years [...] - NEXT LAB APPOINTMENT: 09/29/2013 Powered by [employer], Reference: [id number], 09/24/2013 8:49:09 PM CDT documented in this encounter Plan of Treatment Not on filedocumented as of this encounter Visit Diagnoses Diagnosis Issue of repeat prescriptions - Primary documented in this encounter Care Teams Metal Sprayer Protective Coating Relationship Specialty Start Date End Date Alisha Kimball MD PCP - General 07/08/05 [address] [facility] [place] [address] documented as of this encounter
--- OUTSIDE RECORDS SUMMARY | 2022-04-13 07:39 | XMS_ITS | Encounter Summary ---
:1955 Author Organization [facility] Address [address] [place] [address] Care Team Providers Name Role Phone Alisha Kimball MD Primary Care Provider Encounter Details Date Type Department Care Team Description 10/30/2013 Orders Only [facility] Alisha Kimball, Diabetes mellitus, Practice type 2 (Primary Dx) [address] [facility]. [address] [place] [address] [place], [place] [phone] Social History Tobacco Use Types Packs/Day Years [...] - 04/16/2014 12:25 PM CDT Performed at [facility], [address] [place] [address] ??[phone] Alisha Kimball MD LAB_1 Performing Organization Address City/State/ZIP Code Phon e Number [facility] [phone] documented in this encounter Visit Diagnoses Diagnosis Diabetes mellitus, type 2 (HRC) - Primar y Type II or unspecified type diabetes dinora litus without mention of complication, not stated as uncontrolled Diabetes mellitus, type 2 (HRC) Type II or unspecified type diabetes dinora litus without mention of complication, not stated as uncontrolled documented in this encounter Care Teams Violin Restorer Relationship Specialty Start Date End Date Alisha Kimball MD PCP - General 07/08/05 [address] [place] [address] documented as of this encounter
--- OUTSIDE RECORDS SUMMARY | 2022-04-13 07:39 | XMS_ITS | Encounter Summary ---
:1955 Author Organization [facility] Address [address] [address] Care Team Providers Name Role Phone Alisha Kimball MD Primary Care Provider Reason for Visit Reason Comments Refill Encounter Details Date Type Department Care Team Description 09/24/2013 Refill [facility] Alisha Steinberg MD Refill 8450 [facility]. [address] [place] [address] [place], [place] [phone] (Wo rk) Social History Tobacco Use Types [...] (AKA NORVASC) 5 MG tablet (Sent to [employer] LOAN INTERVIEWER POOL) - LIPID PANEL (12 HR. FASTING) for atorvastatin (AKA LIPITOR) 10 MG tablet (Sent to [employer] LO[employer] INTERVIEWER POOL) Powered by [employer], Reference: [id number], 09/24/2013 8:49:09 PM CDT documented in this encounter Plan of Treatment Not on filedocumented as of this encounter Visit Diagnoses Diagnosis Pure hypercholesterolemia - Primary documented in this encounter Care Teams Second Butler Relationship Specialty Start Date End Date Alisha Kimball MD PCP - General 07/08/05 [address] [place] [address] documented as of this encounter
--- OUTSIDE RECORDS SUMMARY | 2022-04-13 07:39 | XMS_ITS | Encounter Summary ---
:1955 Author Organization [facility] Address [address] [employer] [facility] [place] [address] Care Team Providers Name Role Phone Alisha Kimball MD Primary Care Provider Reason for Visit Reason Onset Date Comments Blood Glucose Readings 11/15/2012 Encounter Details Date Type Department Care Team Description 11/15/2012 Telephone [facility] Alisha Kimball MD Blood Glucose Readings Practice [address] [place] [address] [place] [address] [phone] Social History Tobacco Use Types Packs/Day Years Used Date Smoking Tobacco: Never Smokeless Tobacco: Never Alcohol Use Standard Drinks/Week Comments No 0 (1 standard drink = 0.6 oz pure alcoho l) Sex Assigned at Date Recorded Not on file documented as of this encounter Nursing Notes Deepthi Cabrera CMA - 11/25/2012 8:11 AM CDT 11/25/2012 Message below reviewed with patient, she is agreeable with the plan and expressed understanding. Shehas worked on diet and exercise, she is tolerating Lipitor well, she will return for lab work. Lety Cabrera CMA Francesca Cho CMA - 11/24/2012 3:12 PM CDT Left message to call back. Mary De La O - 11/22/2012 5:00 PM CDT Pt tried calling back, please call pt back after 2 pm Francesca Cho CMA - 11/22/2012 9:59 AM CDT [email or web address] Alisha Kimball MD - 11/21/2012 5:01 PM CDT No answer. Please call the patient 11/22. The more recent glucoses are looking good! Has she also made changes in diet and exercise? If she is tolerating the metformin, can continue with this dose. If glucoses creeping up again, would recommend going to 1000 mg daily. Labs previously ordered next week or the week after. Is she doing OK with the atorvastatin? Thanks! Alisha Kimball MD Crystal Lindsay - 11/15/2012 8:10 AM CDT As instructed pt is calling with her blood sugar readings. They are: 11/01/12- 5:30am 159 7:45pm 283 11/02/12- 6:00am 153 8:00pm 148 11/03/12- 6:00am 176 8:00pm 140 11/04/12- 5:30am 200 8:30pm 131 11/05/12- 6:15am 135 8:30pm 163 11/06/12- 6:45am 141 8:20pm 134 11/07/12- 5:30am 131 8:00pm 144 11/08/12- 5:30am 134 4:45pm 117 11/09/12- 6:00am 123 5:00pm 107 11/10/12- 5:45am 131 5:45pm 123 11/11/12- 5:30am 142 11/12/12- 6:30am 152 11/13/12- 6:30am 168 11/14/12- 5:00pm 107 documented in this encounter Plan of Treatment Not on filedocumented as of this encounter Visit Diagnoses Not on filedocumented in this encounter Care Teams Air Pollution Compliance Inspector Relationship Specialty Start Date End Date Alisha Kimball MD PCP - General 07/08/05 [address] [place] [address] documented as of this encounter
--- OUTSIDE RECORDS SUMMARY | 2022-04-13 07:39 | XMS_ITS | Encounter Summary ---
:1955 Author Organization [facility] Address [address] [place] [address] Care Team Providers Name Role Phone Alisha Kimball MD Primary Care Provider Reason for Visit Reason Onset Date Comments ERRONEOUS ENTRY 04/17/2014 Encounter Details Date Type Department Care Team Description 04/17/2014 Telephone [facility]i Alisha Kimball MD ERRONEOUS ENTRY [address] [facility]. [address] [place] [address] [place] [address] [phone] (Wo rk) Social History Tobacco Use Types [...] on filedocumented in this encounter Care Teams Geotechnical Field Technician Relationship Specialty Start Date End Date Alisha Kimball MD PCP - General 07/08/05 [address] [place], [place] [phone] documented as of this encounter
--- OUTSIDE RECORDS SUMMARY | 2022-04-13 07:39 | XMS_ITS | Encounter Summary ---
:1955 Author Organization [facility] Address [address] [facility] [address] Care Team Providers Name Role Phone Alisha Kimball MD Primary Care Provider Reason for Visit Reason Onset Date Comments PHARMACIST COUNSELING 01/02/2013 diabetes Encounter Details Date Type Department Care Team Description 01/02/2013 Pharmacy [facility] Galvez PHARMAC IST COUNSELING Pharmacy PharmD (diabetes) [address] [facility]. [address] [place] [address] [place], [place] [phone] (Wo rk) Social History Tobacco Use Types [...] on filedocumented in this encounter Care Teams Poke In Relationship Specialty Start Date End Date Alisha Kimball MD PCP - General 07/08/05 [address] [place], [place] [phone] documented as of this encounter
--- OUTSIDE RECORDS SUMMARY | 2022-04-13 07:39 | XMS_ITS | Encounter Summary ---
:1955 Author Organization [facility] Address [address] [place] [address] Care Team Providers Name Role Phone Alisha Kimball MD Primary Care Provider Reason for Visit Reason Onset Date Comments PHARMACIST COUNSELING 07/07/2013 diabetes Encounter Details Date Type Department Care Team Description 07/07/2013 Pharmacy [place] [facility], Tesha, PHARMACIS T COUNSELING Pharmacy PharmD (diabetes) [address] [facility]. [address] [place] [address] [facility] [phone] [place], [place] [address] (Wo rk) Social History [...] on filedocumented in this encounter Care Teams Cylinder Handler Relationship Specialty Start Date End Date Alisha Kimball MD PCP - General 07/08/05 [address] [place], [place] [phone] documented as of this encounter
--- OUTSIDE RECORDS SUMMARY | 2022-04-13 07:39 | XMS_ITS | Encounter Summary ---
:1955 Author Organization [facility] Address [address] [employer] [facility] [place] [address] Care Team Providers Name Role Phone Alisha Kimball MD Primary Care Provider Reason for Visit Reason Onset Date Comments Medication Questions 06/02/2014 Encounter Details Date Type Department Care Team Description 06/02/2014 Telephone [facility] Alisha Kimball MD Medication Questions Practice [address] [place] [address] [place], [place] [address] [phone] Social History Tobacco Use Types Packs/Day Years Used Date Smoking Tobacco: Never Smokeless Tobacco: Never Alcohol Use Standard Drinks/Week Comments No 0 (1 standard drink = 0.6 oz pure alcoho l) Sex Assigned at Date Recorded Not on file documented as of this encounter Nursing Notes Valeria Villa - 06/12/2014 9:23 AM CST Lm Encounter closed TESTER Alisha Kimball MD - 06/05/2014 5:28 PM CST Refill sent. Alisha Kimball MD TESTER Tara Ricketts - 06/05/2014 3:59 PM CST [...] with the metformin? Thanks! Alisha Kimball MD TESTER Erlinda Dickerson RN - 06/04/2014 8:08 AM CST Last Visit: 10/30/13 See below Erlinda Dickerson RN TESTER Jodi Dick - 06/02/2014 12:55 PM CST Patient states metformin dose has been increased. Pharmacy would need prescription to reflect new dose. Please review TESTER documented in this encounter Plan of Treatment Not on filedocumented as of this encounter Visit Diagnoses Diagnosis Diabetes mellitus, type 2 (HRC) - Primar y Type II or unspecified type diabetes dinora litus without mention of complication, not stated as uncontrolled documented in this encounter Care Teams Sorority Mother Relationship Specialty Start Date End Date Alisha Kimball MD PCP - General 07/08/05 [address] [place] [address] documented as of this encounter
--- OUTSIDE RECORDS SUMMARY | 2022-04-13 07:39 | XMS_ITS | Encounter Summary ---
:1955 Author Organization [facility] Address [address] [place] [address] Care Team Providers Name Role Phone Alisha Kimball MD Primary Care Provider Reason for Visit Reason Comments MEDICATION THERAPY MANAGEMENT SEGIP Encounter Details Date Type Department Care Team Description 05/21/2014 Office Visit [facility] Tesha Maxwell, Diabetes mellitus, type 2 (P rimary Dx); [address] PharmD Hypertension; [place] [address] [address] Hypercholesterolemia [phone] [place], [place] [phone] Social History Tobacco Use Types Packs/Day Years Used Date Smoking Tobacco: Never Smokeless Tobacco: Never Alcohol Use Standard Drinks/Week Comments No 0 (1 standard drink = 0.6 oz pure alcoho l) Sex Assigned at Date Recorded Not on file documented as of this encounter Last Filed Vital Signs Vital Sign Reading Time Taken Comments Blood Pressure 126/89 05/21/2014 10:42 AM DIRECTOR OF FEDERAL SALES Pulse 83 05/21/2014 10:42 AM DIRECTOR OF [employer] Temperature - - Respiratory Rate - - [...] you have questions. Thanks, Tesha Maxwell PharmD [facility] on Wednesday & Wednesday: [phone] [facility] on & Wednesday: [phone] [employer]OR [employer] documented in this encounter Progress Notes Tesha Maxwell PharmD - 05/21/2014 10:23 AM CST S Loc Velasco was referred to Medication Therapy Management Services by [facility] for diabetes management/education. Melia presents today for [...] month(s) for follow-up, sooner if needed. Updated [facility] med list and reviewed medications including indications with patient. Total time spent with patient 15 minutes. Tesha Maxwell PharmD Clinical Pharmacist Medication Therapy Management Program [employer] documented in this encounter Plan of Treatment Not on filedocumented as of this encounter Visit Diagnoses Diagnosis Diabetes mellitus, type 2 (HRC) - Primar y Type II or unspecified type diabetes dinora litus without mention of complication, not stated as uncontrolled Hypertension (HRC) Unspecified essential hypertension Hypercholesterolemia Pure hypercholesterolemia documented in this encounter Care Teams Recovery Coach Relationship Specialty Start Date End Date Alisha Kimball MD PCP - General 07/08/05 [address] [place] [address] documented as of this encounter
--- OUTSIDE RECORDS SUMMARY | 2022-04-13 07:39 | XMS_ITS | Encounter Summary ---
:1955 Author Organization [facility] Address [address] [place] [address] Care Team Providers Name Role Phone Alisha Kimball MD Primary Care Provider Reason for Referral Procedure/Equipment (Routine) - Incomplete Specialty Diagnoses / Procedures Referred By Contact Refer red To Contact Diagnoses Encounter for screening mammogram for malignant neoplasm of breast Alisha Kimball MD Procedures BILAT Mammogram screening [address] [place] [address] Referral ID Status Reason Start Date Expiration Date Visits V isits Requested Authorized [id number] Incomplete 10/30/2013 1 1 Reason for Visit Reason Comments ROUTINE HEALTH MAINTENANCE Encounter Details Date Type Department Care Team Description 10/30/2013 Office Visit [facility] Alisha Kimball, [facility] (Primary Dx); Practice MD Encounter for screening mammogram for ma lignant neoplasm of breast [address] [place] [address] [place], [place] [phone] Social History Tobacco Use Types Packs/Day Years [...] mammogram documented in this encounter Care Teams Strategic Debriefing Specialist Relationship Specialty Start Date End Date Alisha Kimball MD PCP - General 07/08/05 [address] [place] [address] documented as of this encounter
--- OUTSIDE RECORDS SUMMARY | 2022-04-13 07:39 | XMS_ITS | Encounter Summary ---
:1955 Author Organization [facility] Address [address] [place] [address] Care Team Providers Name Role Phone Alisha Kimball MD Primary Care Provider Reason for Visit Procedure/Equipment (Routine) - Incomplete Specialty Diagnoses / Procedures Referred By Contact Refer red To Contact Diagnoses Encounter for screening mammogram for malignant neoplasm of breast Alisha Kimball MD Procedures BILAT Mammogram screening [address] [facility] [place] [address] Referral ID Status Reason Start Date Expiration Date Visits V isits Requested Authorized [id number] Incomplete 10/30/2013 1 1 Encounter Details Date Type Department Care Team Description 11/01/2013 Imaging [facility] Enco unter for screening Mammography mammogram for malignant [address] [place] [address] Social History Tobacco Use Types [...] mammogram documented in this encounter Care Teams Template Layout Worker Relationship Specialty Start Date End Date Alisha Kimball MD PCP - General 07/08/05 [address] [place] [address] documented as of this encounter
--- OUTSIDE RECORDS SUMMARY | 2022-04-13 07:39 | XMS_ITS | Encounter Summary ---
:1955 Author Organization [facility] Address [address] [facility] [place] [address] Care Team Providers Name Role Phone Alisha Kimball MD Primary Care Provider Reason for Visit Reason Comments LAB RESULTS A1C, lipids Encounter Details Date Type Department Care Team Description 12/16/2012 Telephone [facility] Alisha Kimball MD LAB RESULTS (A1C, Practice [address] lipids) [address] [place] [address] [place] [address] [phone] Social History Tobacco Use Types Packs/Day Years [...] - 01/13/2013 12:39 PM CDT Performed at [facility], [address] [place] [address], [place], [place] ??[id number] Alisha Kimball MD LAB_1 Performing Organization Address City/State/ZIP Code Phon e Number [facility] [phone] documented in this encounter Visit Diagnoses Diagnosis Diabetes mellitus type II (HRC) - Primar y Type II or unspecified type diabetes dinora litus without mention of complication, not stated as uncontrolled Diabetes mellitus type II (HRC) Type II or unspecified type diabetes dinora litus without mention of complication, not stated as uncontrolled documented in this encounter Care Teams Automatic Presser Relationship Specialty Start Date End Date Alisha Kimball MD PCP - General 07/08/05 [address] [place] [address] documented as of this encounter
--- OUTSIDE RECORDS SUMMARY | 2022-04-13 07:39 | XMS_ITS | Encounter Summary ---
:1955 Author Organization [facility] Address [address] [place] [address] Care Team Providers Name Role Phone Alisha Kimball MD Primary Care Provider Reason for Visit Reason Onset Date Comments LAB TESTS, NOS 09/22/2013 Encounter Details Date Type Department Care Team Description 09/22/2013 Telephone [facility] Alisha Kimball MD LAB TESTS, NOS [address] [facility]. [address] [place] [address] [place] [address] [phone] (Wo rk) Social History Tobacco Use Types [...] this Telephone Encounter to the following pool: [place] [facility] POOL. Thank you documented in this [...] 10/30/2013 1:03 PM C DT Performed at [facility], [address] [place] [phone] Alisha Kimball MD LAB_1 Performing Organization Address City/State/ZIP Code Phon e Number [facility] [phone] TSH, SENSITIVE with FT4, FT3 (if needed) (10/30/2013 7:37 AM CDT) athologist Signature TSH, with 1.465 0.300 - [facility] Reflex 5.000 [facility]ATORIES uIU/ml Specimen Anatomical Collection Method Collection Time Receive d Time (Source) Location / / Volume Laterality 10/30/2013 7:37 AM 4 7:39 CDT AM CDT Narrative [facility] - 10/30/2013 2:45 PM C DT Performed at [facility], [address] [place] [address] ??[phone] Alisha Kimball MD LAB_1 Performing Organization Address City/[facility]/ZIP Code Phon e Number [facility] [phone] SODIUM (10/30/2013 7:37 AM CDT) athologist Signature Sodium 140 135 - 145 [facility] mmol/L Specimen Anatomical Collection Method Collection Time Receive d Time (Source) Location / / Volume Laterality 10/30/2013 7:37 AM 4 7:39 CDT AM CDT Narrative [facility] - 10/30/2013 2:04 PM C DT Performed at [facility], [address] [place] [address] ??[id number] Alisha Kimball MD LAB_1 Performing Organization Address City/[facility] Code Phon e Number [facility] [phone] POTASSIUM (10/30/2013 7:37 AM CDT) athologist Signature Potassium 4.2 3.5 - 5.3 [facility] mmol/L Specimen Anatomical Collection Method Collection Time Receive d Time (Source) Location / / Volume Laterality 10/30/2013 7:37 AM 4 7:39 CDT AM CDT Narrative [facility] - 10/30/2013 2:04 PM C DT Performed at [facility], [address] [place] [address] ??[phone] Alisha Kimball MD LAB_1 Performing Organization Address City/[facility] Phon e Number [facility] [phone] ALT (SGPT) (10/30/2013 7:37 AM CDT) athologist Signature ALT (SGPT) 52 0 - 69 U/L [facility] Specimen Anatomical Collection Method Collection Time Receive d Time (Source) Location / / Volume Laterality 10/30/2013 7:37 AM 4 7:39 CDT AM CDT Narrative [facility] - 10/30/2013 2:04 PM C DT Performed at [facility], [address] [place] [id number] Alisha Kimball MD LAB_1 Performing Organization Address City/State/ZIP Code Phon e Number [facility] [phone] MICROALB/CREAT RATIO (10/30/2013 7:37 AM CDT) [facility] gist Method Time Signature Albumin, 0.6 [...] 10/30/2013 1:21 PM C DT Performed at [facility], [address] [place] [phone] Alisha Kimball MD LAB_1 Performing Organization Address City/[facility]/ZIP Code Phon e Number [facility] [phone] CREATININE / GFR (10/30/2013 7:37 AM CDT) Analysis Performed At [facility] logist Time Signature Creatinine 0.73 0.52 - [...] 10/30/2013 2:04 PM C DT Performed at [facility], [address] [place] [address] ??[phone] Alisha Kimball MD LAB_1 Performing Organization Address City/State/ZIP Code Phon e Number [facility] [phone] (ABNORMAL) LIPID PANEL AND DIRECT LDL(IF NEEDED) (10/30/2013 7:37 AM CDT) [facility] Method Time Signature Hours Fasting 12 [...] PM C DT Performed at [facility], [address] [place] [phone] Alisha Kimball MD LAB_1 Performing Organization Address [facility] Phon e Number [facility] [phone] (ABNORMAL) HGB A1C (10/30/2013 7:37 AM CDT) [...] PM C DT Performed at [facility], [address] [place] [address] Alisha Kimball MD LAB_1 Performing Organization Address City/[facility] Phon e Number [facility] [phone] documented in this encounter Visit Diagnoses Diagnosis Diabetes mellitus, type 2 (HRC) - Primar y Type II or unspecified type diabetes idnora litus without mention of complication, not stated [...] anemia documented in this encounter Care Teams Gas Fitter Relationship Specialty Start Date End Date Alisha Kimball MD PCP - General 07/08/05 [address] [place] [address] documented as of this encounter
--- OUTSIDE RECORDS SUMMARY | 2022-04-13 07:39 | XMS_ITS | Encounter Summary ---
:1955 Author Organization [facility] Address [address] [place] [address] Care Team Providers Name Role Phone Alisha Kimball MD Primary Care Provider Reason for Visit Reason Comments FOLLOW-UP,DIABETES Encounter Details Date Type Department Care Team Description 10/31/2012 Telephone [facility] Alisha Steinberg MD FOLLOW-UP,DIABETES [address] [facility]. [address] [place] [address] [place], [place] [phone] (Wo rk) Social History Tobacco Use Types [...] Please call the patient for glucoses. Thanks! Alisha Kimball MD documented in this encounter Plan of Treatment Not on filedocumented as of this encounter Visit Diagnoses Not on filedocumented in this encounter Care Teams Strike Off Machine Operator Relationship Specialty Start Date End Date Alisha Kimball MD PCP - General 07/08/05 [address] [place] [address] documented as of this encounter
--- OUTSIDE RECORDS SUMMARY | 2022-04-13 07:39 | XMS_ITS | Encounter Summary ---
:1955 Author Organization [facility] Address [address] [place] [address] Care Team Providers Name Role Phone Alisha Kimball MD Primary Care Provider Encounter Details Date Type Department Care Team Description 08/24/2014 Orders Only [facility] Abdominal pain, [address] [place] [address] Social History Tobacco Use Types [...] Abdominal pain, Res ults for this COUNT-W/DIFF INSPECTOR MULTIFOCAL LENS generalized procedure are i n the results section. URINE CULTURE Routine 08/24/2014 10:24 AM Abdominal pain, Resu lts for this INSPECTOR MULTIFOCAL LENS generalized procedure are i n the results section. BASIC METABOLIC Routine 08/24/2014 10:24 AM Abdominal pain, Re sults for this PANEL INSPECTOR MULTIFOCAL LENS generalized procedure are i n the results section. H. PYLORI IGG Routine 08/24/2014 10:24 AM Abdominal pain, Resu lts for this INSPECTOR MULTIFOCAL LENS generalized procedure are i n the results section. C-REACTIVE PROTEIN Routine 08/24/2014 10:24 AM Abdominal pain, Results for this INSPECTOR MULTIFOCAL LENS generalized procedure are i n the results section. UA WITH MICRO Waiting 08/24/2014 10:24 AM Abdominal pain, Resu lts for this INSPECTOR MULTIFOCAL LENS generalized procedure are i n the results section. documented in this encounter Results H. PYLORI IGG (08/24/2014 10:24 AM INSPECTOR MULTIFOCAL LENS) [facility] Method Time Signature H. pylori IgG Negative NEG [facility] Specimen Anatomical Collection Method Collection Time Receive d Time (Source) Location / / Volume Laterality 08/24/2014 10:24 08/24/2014 AM INSPECTOR MULTIFOCAL LENS 10:25 AM INSPECTOR MULTIFOCAL LENS Narrative [facility] - 08/27/2014 2:[address] Performed at [facility], [address] [place] [phone] David Kat MD LAB_1 Performing Organization Address City/[facility] Phon e Number [facility] [phone] URINE CULTURE (08/24/2014 10:24 AM INSPECTOR MULTIFOCAL LENS) Component Value Ref Test Analysis Performed At [facility] Method Time Signature Specimen Urine [facility] Description Midstream [facility] Special Unspecified [facility] Requests LABORATORIES Culture No Growth [facility] After 1 Day [facility]ATORIES Report Status Final [facility] 08/25/2014 LABORATORIES Specimen Anatomical Collection Method Collection Time Receive d Time (Source) Location / / Volume Laterality 08/24/2014 10:24 08/24/2014 AM INSPECTOR MULTIFOCAL LENS 10:25 AM INSPECTOR MULTIFOCAL LENS Narrative [facility] - 08/25/2014 1:[address] Performed at [facility] , [address] [place] [id number] David Kat MD LAB_1 Performing Organization Address City/[facility] Code Phon e Number [facility] [phone] (ABNORMAL) UA WITH MICRO (08/24/2014 10:24 AM INSPECTOR MULTIFOCAL LENS) [facility] Method Time Signature Urine Color Yellow [...] / Volume Laterality 08/24/2014 10:24 08/24/2014 AM INSPECTOR MULTIFOCAL LENS 10:25 AM INSPECTOR MULTIFOCAL LENS Narrative [facility] - 08/24/2014 10:37 AM INSPECTOR MULTIFOCAL LENS Performed at [facility], [address] [place] [phone] David Kat MD LAB_1 Performing Organization Address City/[facility] Phon e Number [facility] [phone] (ABNORMAL) BASIC METABOLIC PANEL (08/24/2014 10:24 AM INSPECTOR MULTIFOCAL LENS) [facility] [employer] Method Time Signature Sodium 143 135 - [...] / Volume Laterality 08/24/2014 10:24 08/24/2014 AM INSPECTOR MULTIFOCAL LENS 10:25 AM INSPECTOR MULTIFOCAL LENS Narrative [facility] - 08/24/2014 2:[address] Performed at [facility], [address] [place] [phone] David Kat MD LAB_1 Performing Organization Address City/[facility] Phon e Number [facility] [phone] (ABNORMAL) C-REACTIVE PROTEIN (08/24/2014 10:24 AM INSPECTOR MULTIFOCAL LENS) [facility] [employer] Method Time Signature C-Reactive 5.7 (H) 0.0 - 0.9 [facility] Protein mg/dl LABORATORIES Comment: Note: results are expressed in mg/dL. Specimen Anatomical Collection Method Collection Time Receive d Time (Source) Location / / Volume Laterality 08/24/2014 10:24 08/24/2014 AM INSPECTOR MULTIFOCAL LENS 10:25 AM INSPECTOR MULTIFOCAL LENS Narrative [facility] - 08/24/2014 2:[address] Performed at [facility], [address] ??[id number] David Kat MD LAB_1 Performing Organization Address City/State/ZIP Code Phon e Number [facility] [phone] HEMOGRAM/PLTS/DIFF (08/24/2014 10:24 AM INSPECTOR MULTIFOCAL LENS) Analysis Performed At [facility] logist Time Signature WBC 8.2 4.0 - [...] [facility] Lymph 24 % [facility] Chaffee 7 % [facility] Eos 2 % [facility] Baso 1 % [facility] Neutrophil 5.4 1.8 - 7.7 [facility] Absolute k/ul LABORATORIES Lymph Absolute 2.0 1.0 - 4.8 [facility] k/ul LABORATOR[facility] [place]fee Absolute 0.6 0.1 - 0.7 [facility] k/ul [facility] Eos Absolute 0.2 0.0 - 0.5 [facility] k/ul [facility] Baso Absolute 0.1 0.0 - 0.2 [facility] k/ul [facility] Specimen Anatomical Collection Method Collection Time Receive d Time (Source) Location / / Volume Laterality 08/24/2014 10:24 08/24/2014 AM INSPECTOR MULTIFOCAL LENS 10:25 AM INSPECTOR MULTIFOCAL LENS Narrative [facility] - 08/24/2014 10:39 AM INSPECTOR MULTIFOCAL LENS Performed at [facility], [address] [place], [place] ??[phone] David Kat MD LAB_1 Performing Organization Address City/State/ZIP Code Phon e Number [facility] [phone] documented in this encounter Visit Diagnoses Diagnosis Abdominal pain, generalized documented in this encounter Care Teams Parts Counter Sales Person Relationship Specialty Start Date End Date Alisha Kimball MD PCP - General 07/08/[address] [place] [address] documented as of this encounter
--- OUTSIDE RECORDS SUMMARY | 2022-04-13 07:39 | XMS_ITS | Encounter Summary ---
:1955 Author Organization [email or web address] Address [address] [place] [address] Care Team Providers Name Role Phone Alisha Kimball MD Primary Care Provider Reason for Visit Reason Comments DIABETES, MELLITUS Encounter Details Date Type Department Care Team Description 10/31/2012 Office Visit [facility] Alisha Kimball, Diabetes mellitus type II (HRC) (Primary Dx); Practice MD Need for prophylactic vaccination agains t Streptococcus pneumoniae (pneumococcus); [address] Hypercholesterolemia; [place] [address] [place], [place] Elevated liver enzymes [phone] Social History Tobacco Use Types Packs/Day Years [...] Lab Only appointment online or by calling [phone]. Understanding Optimal Diabetes Care Goals The five optimal diabetes care goals shown below were designed to measure how well your diabetes is being managed. When all five goals are achieved, your risk for health problems associated with diabetes is greatly reduced. The [facility] Team is available to help you reach your goals. Diabetes is a disease requiring daily attention. For this reason, you are the most important person of the [facility] Team. Name: Loc Velasco Guideline Goal [...] a list of these classes, please visit [email or web address] and click on the Health and Wellness tab or call the appointment center at [phone] to register for a class. Depending on your insurance coverage, a fee to participate in certain classes may apply documented in this encounter Progress Notes Alisha Kimball MD - 10/31/2012 8:01 PM CDT S: Loc Velasco is a 57 yr old female never smoker seen for follow up of her type 2 diabetes. Shewas seen for a [facility] visit recently and she had her labs [...] committed to weight loss and exercise. Declines hub inventory specialist and diabetes nurse visits. See the patient [...] 12/16/2012 2:00 PM C DT Performed at [facility], [address] [place] [address] ??[phone] Alisha Kimball MD LAB_1 Performing Organization Address [facility] Phon e Number [facility] [phone] LIVER PANEL(HEPATIC FUNCTION PANEL) (12/16/2012 7:33 AM CDT) [facility] Method Time Signature Alkaline 90 38 - [...] - 12/16/2012 12:42 PM CDT Performed at [facility], [address] [place] [address] ??[phone] Alisha Kimball MD LAB_1 Performing Organization Address [facility] Phon e Number [facility] [phone] LIPID PANEL AND DIRECT LDL(IF NEEDED) (12/16/2012 7:33 AM CDT) PhotoTLC Method Time Signature Hours Fasting 12 hours [...] - 12/16/2012 12:42 PM CDT Performed at [facility], [address] [place] [address] ??[phone] Alisha Kimball MD LAB_1 Performing Organization Address City/State/ZIP Code Phon e Number [facility] [phone] documented in this encounter Visit Diagnoses Diagnosis [...] (LDH) documented in this encounter Care Teams Punch Out Crew Member Relationship Specialty Start Date End Date Alisha Kimball MD PCP - General 07/08/05 [address] [place] [address] documented as of this encounter
--- OUTSIDE RECORDS SUMMARY | 2022-04-13 07:39 | XMS_ITS | Encounter Summary ---
:1955 Author Organization [facility] Address [address] [place] [address] Care Team Providers Name Role Phone Alisha Kimball MD Primary Care Provider Encounter Details Date Type Department Care Team Description 04/16/2014 Orders Only [facility] Diabetes mellitus, type [address] [place] [address] Social History Tobacco Use Types [...] Associated Diagnosis Comme nts HGB A1C Routine 04/16/2014 7:33 AM Diabetes mellitus, Res ults for this CDT type 2 procedure are i n the results section . documented in this encounter Results (ABNORMAL) HGB A1C (04/16/2014 [...] - 04/16/2014 12:25 PM CDT Performed at [facility], [address] [place] [address] ??[phone] Alisha Kimball MD LAB_1 Performing Organization Address City/State/ZIP Code Phon e Number [facility] [phone] documented in this encounter Visit Diagnoses Diagnosis Diabetes mellitus, type 2 (HRC) Type II or unspecified type diabetes dinora litus without mention of complication, not stated as uncontrolled documented in this encounter Care Teams Mental Health Therapist Relationship Specialty Start Date End Date Alisha Kimball MD PCP - General 07/08/05 [address] [place] [address] documented as of this encounter
--- OUTSIDE RECORDS SUMMARY | 2022-04-13 07:39 | XMS_ITS | Encounter Summary ---
:1955 Author Organization [facility] Address [address] [facility] [address] Care Team Providers Name Role Phone Alisha Kimball MD Primary Care Provider Reason for Visit Reason Onset Date Comments LAB TESTS, NOS 05/17/2014 Encounter Details Date Type Department Care Team Description 05/17/2014 Telephone [facility] Alisha Steinberg MD LAB TESTS, NOS [address] [facility] [place]. [address] [place] [address] [place] [address] [phone] (Wo rk) Social History Tobacco Use Types Packs/Day Years Used Date Smoking Tobacco: Never Smokeless Tobacco: Never Alcohol Use Standard Drinks/Week Comments No 0 (1 standard drink = 0.6 oz pure alcoho l) Sex Assigned at Date Recorded Not on file documented as of this encounter Nursing Notes Alisha Kimball MD - 05/18/2014 2:54 PM CST OK. See orders. Alisha Kimball MD NDING ENGINEER Mercy Davidson - 05/17/2014 7:04 PM CST [...] following pool: [place] LAB POOL. Thank you NDING ENGINEER documented in this encounter Plan of Treatment Not on filedocumented as of this encounter Results CREATININE / GFR (05/21/2014 7:33 AM GROUNDING ENGINEER) Analysis Performed At Patho logist Time Signature Creatinine 0.90 0.52 - [facility] 1.04 mg/dl LAB[facility] GFR, Estimated >60 >60 [facility] ml/min/1.7 [facility]ATORIES 3m2 GFR, Est., If >60 >60 [facility] Black ml/min/1.7 LABORATORIES 3m2 Specimen Anatomical Collection Method Collection Time Receive d Time (Source) Location / / Volume Laterality 05/21/2014 7:33 AM 4 7:34 GROUNDING ENGINEER AM GROUNDING ENGINEER Narrative [facility] - 05/21/2014 1:[address] Performed at [facility], [address] [place] [address] ??[phone] Alisha Kimball MD LAB_1 Performing Organization Address [facility] Code Phon e Number [facility] [phone] (ABNORMAL) HGB A1C (05/21/2014 7:33 AM GROUNDING ENGINEER) P athologist Signature Hgb A1c 7.5 (H) [...] Volume Laterality 05/21/2014 7:33 AM 4 7:34 GROUNDING ENGINEER AM GROUNDING ENGINEER Narrative [facility] - 05/21/2014 1:[address] Performed at [facility], [address] [place] [address] ??[phone] Alisha Kimball MD LAB_1 Performing Organization Address [facility]/ZIP Code Phon e Number [facility] [phone] documented in this encounter Visit Diagnoses Diagnosis Diabetes mellitus, type 2 (HRC) - Primar y Type II or unspecified type diabetes dinora litus without mention of complication, not stated as uncontrolled Diabetes mellitus, type 2 (HRC) Type II or unspecified type diabetes dinora litus without mention of complication, not stated as uncontrolled documented in this encounter Care Teams Meter Maintenance Person Relationship Specialty Start Date End Date Alisha Kimball MD PCP - General 07/08/05 [address] [place] [address] documented as of this encounter
--- OUTSIDE RECORDS SUMMARY | 2022-04-13 07:39 | XMS_ITS | Encounter Summary ---
:1955 Author Organization [facility] Address [address] [place] [address] Care Team Providers Name Role Phone Alisha Kimball MD Primary Care Provider Encounter Details Date Type Department Care Team Description 05/21/2014 Orders Only [facility] Diabetes mellitus, type [address] [place] [address] Social History Tobacco Use [...] AM Diabetes mellitus , Results for this MOTION PICTURE PROJECTIONIST type 2 procedure are i n the results section. HGB A1C Routine 05/21/2014 7:33 AM Diabetes mellitus, Res ults for this MOTION PICTURE PROJECTIONIST type 2 procedure are i n the results section. documented in this encounter Results CREATININE / GFR (05/21/2014 7:33 AM MOTION PICTURE PROJECTIONIST) Analysis Performed At Patho logist Time Signature Creatinine 0.90 0.52 - [facility] 1.04 mg/dl LAB[facility]ATORIES GFR, Estimated >60 >60 [facility] ml/min/1.7 LAB[facility]ATORIES 3m2 GFR, Est., If >60 >60 [facility] Black ml/min/1.7 LAB[facility]ATORIES 3m2 Specimen Anatomical Collection Method Collection Time Receive d Time (Source) Location / / Volume Laterality 05/21/2014 7:33 AM 4 7:34 MOTION PICTURE PROJECTIONIST AM MOTION PICTURE PROJECTIONIST Narrative [facility] - 05/21/2014 1:[address] Performed at [facility], [address] [place] [address] ??[phone] Alisha Kimball MD LAB_1 Performing Organization Address [facility] e Number [facility] [phone] (ABNORMAL) HGB A1C (05/21/2014 7:33 AM MOTION PICTURE PROJECTIONIST) P athologist Signature Hgb A1c 7.5 (H) [...] Volume Laterality 05/21/2014 7:33 AM 4 7:34 MOTION PICTURE PROJECTIONIST AM MOTION PICTURE PROJECTIONIST Narrative [facility] - 05/21/2014 1:[address] [facility], [address] [place] [address] ??[phone] Alisha Kimball MD LAB_1 Performing Organization Address [facility] e Number [facility] [phone] documented in this encounter Visit Diagnoses Diagnosis Diabetes mellitus, type 2 (HRC) Type II or unspecified type diabetes dinora litus without mention of complication, not stated as uncontrolled documented in this encounter Care Teams Power Plant Operators Supervisor Relationship Specialty Start Date End Date Alisha Kimball MD PCP - General 07/08/05 [address] [place] [address] documented as of this encounter
--- OUTSIDE RECORDS SUMMARY | 2022-04-13 07:39 | XMS_ITS | Encounter Summary ---
:1955 Author Organization [employer] Address [address] [facility] [place] [address] Care Team Providers Name Role Phone Alisha Kimball MD Primary Care Provider Reason for Referral Procedure/Equipment (Routine) - Incomplete Specialty Diagnoses / Procedures Referred By Contact Refer red To Contact Procedures David Kat MD US PELVIS COMPLETE W IVT [address] (RH/HSC) [place] [address] Referral ID Status Reason Start Date Expiration Date Visits V isits Requested Authorized [id number] Incomplete 08/24/2014 1 1 NG HELPER Reason for Visit Reason Comments ABDOMINAL PAIN pain in lt overy area, hx hy sterectomy, mother had cervical cancer Encounter Details Date Type Department Care Team Description 08/24/2014 Office Visit [facility] David Kat Abdominal pa in, generalized (Primary Dx); Rakesh Lunsford MD Pelvic pain in female; [address] Abdominal bloating [place], [place] [id number] Social History Tobacco Use Types Packs/Day Years Used Date Smoking Tobacco: Never Smokeless Tobacco: Never Alcohol Use Standard Drinks/Week Comments No 0 (1 standard drink = 0.6 oz pure alcoho l) Sex Assigned at Date Recorded Not on file documented as of this encounter Last Filed Vital Signs Vital Sign Reading Time Taken Comments Blood Pressure 133/88 08/24/2014 9:35 AM MINING HELPER Pulse 78 08/24/2014 9:35 AM MINING HELPER Temperature 36.1 ??C (97 ??F) 08/24/2014 9:35 AM MINING HELPER Respiratory Rate 14 08/24/2014 9:35 AM MINING HELPER Oxygen Saturation 96% 08/24/2014 9:35 AM MINING HELPER Inhaled Oxygen Concentration - - Weight 77.1 kg (170 lb) 08/24/2014 9:35 AM MINING HELPER Height 162.6 cm (5' 4) 08/24/2014 9:35 AM MINING HELPER Body Mass Index 29.18 08/24/2014 9:35 AM MINING HELPER documented in this encounter Patient Instructions Patient [...] Where can you learn more? Go to Gist[employer] and enter [phone] in the search box. Current as of: December 06, 2013 Content Version: 10.3 ?? [id number] [employer]. NG HELPER documented in this encounter Progress Notes David [...] No cervix present. Right adnexal tenderness (Sabina, ADVERTISEMENT COMPOSITOR present). EXT: No C/C/E. SKIN: Warm, dry. No apparent rashes or lesions. ASSESSMENT/PLAN: 1) Abdominal/pelvic pain - Check pelvic and abdominal US. Check lab work (See EPIC orders). Follow up in 2-[address] abdomen recommended, patient declined at this time. David Kat MD 08/24/2014, 9:58 AM NG HELPER documented in this encounter Plan of Treatment Not on filedocumented as of this encounter Results US PELVIS COMPLETE W IVT (RH/HSC) (08/24/2014 3:20 PM MINING HELPER) Anatomical Region Laterality Modality Pelvis Ultrasound Specimen (Source) Anatomical Collection Method Collection Time Re ceived Time Location / / Volume Laterality 08/24/2014 3:20 PM MINING HELPER Narrative 08/24/2014 4:34 PM MINING HELPER US PELVIS COMPLETE W/IVT (UTERUS/OVARIES) 08/24/2014 3:20 [...] RAD H. PYLORI IGG (08/24/2014 10:24 AM MINING HELPER) Tradier Method Time Signature H. pylori IgG Negative NEG [facility] Specimen Anatomical Collection Method Collection Time Receive d Time (Source) Location / / Volume Laterality 08/24/2014 10:24 08/24/2014 AM MINING HELPER 10:25 AM MINING HELPER Narrative [facility] - 08/27/2014 2:[address] Performed at [facility], [address] [place] [address] ??[phone] David Kat MD LAB_1 Performing Organization Address City/State/ZIP Code Phon e Number [facility] [phone] URINE CULTURE (08/24/2014 10:24 AM MINING HELPER) Component Value Ref Test Analysis Performed At Patholo gist Range Method Time Signature Specimen Urine [facility] Description [facility] Special Unspecified [facility] Requests [facility] Culture No Growth [facility] After 1 Day [facility] Report Status Final [facility] 08/25/2014 [facility]ATORIES Specimen Anatomical Collection Method Collection Time Receive d Time (Source) Location / / Volume Laterality 08/24/2014 10:24 08/24/2014 AM MINING HELPER 10:25 AM MINING HELPER Narrative [facility] - 08/25/2014 1:[address] Performed at [facility] , [address] [place] [address] David Kat MD LAB_1 Performing Organization Address City/[facility] Code Phon e Number [facility] [phone] (ABNORMAL) UA WITH MICRO (08/24/2014 10:24 AM MINING HELPER) [facility] [employer] Method Time Signature Urine Color Yellow [facility] [...] / Volume Laterality 08/24/2014 10:24 08/24/2014 AM MINING HELPER 10:25 AM MINING HELPER Narrative [facility] - 08/24/2014 10:37 AM MINING HELPER Performed at [facility], [address] [facility], [place], [place] ??[address] David Kat MD LAB_1 Performing Organization Address City/State/ZIP Code Phon e Number [facility] [phone] (ABNORMAL) BASIC METABOLIC PANEL (08/24/2014 10:24 AM MINING HELPER) Tradier Method Time Signature Sodium 143 135 - [...] / Volume Laterality 08/24/2014 10:24 08/24/2014 AM MINING HELPER 10:25 AM MINING HELPER Narrative [facility] - 08/24/2014 2:[address] Performed at [facility], [address] [place] [address] ??[phone] Dvaid Kat MD LAB_1 Performing Organization Address [facility] Phon e Number [facility] [phone] (ABNORMAL) C-REACTIVE PROTEIN (08/24/2014 10:24 AM MINING HELPER) Patholo gist Method Time Signature C-Reactive 5.7 (H) 0.0 - 0.9 [facility] Protein mg/dl LAB[facility]ATORIES Comment: Note: results are expressed in mg/dL. Specimen Anatomical Collection Method Collection Time Receive d Time (Source) Location / / Volume Laterality 08/24/2014 10:24 08/24/2014 AM MINING HELPER 10:25 AM MINING HELPER Narrative [facility] - 08/24/2014 2:[address] Performed at [facility], [address] [place] [address] ??[phone] David Kat MD LAB_1 Performing Organization Address City/[facility] Phon e Number [facility] [phone] HEMOGRAM/PLTS/DIFF (08/24/2014 10:24 AM MINING HELPER) Analysis Performed At Patho logist Time Signature [...] [facility] Lymph 24 % [facility] Nicollet 7 % [facility] Eos 2 % [facility] Baso 1 % [facility] Neutrophil 5.4 1.8 - 7.7 [facility] Absolute k/ul LAB[facility] Lymph Absolute 2.0 1.0 - 4.8 [facility] k/ul [facility] Nicollet Absolute 0.6 0.1 - 0.7 [facility] k/ul [facility] Eos Absolute 0.2 0.0 - 0.5 [facility] k/ul [facility] Baso Absolute 0.1 0.0 - 0.2 [facility] k/ul [facility] Specimen Anatomical Collection Method Collection Time Receive d Time (Source) Location / / Volume Laterality 08/24/2014 10:24 08/24/2014 AM MINING HELPER 10:25 AM MINING HELPER Narrative [facility] - 08/24/2014 10:39 AM MINING HELPER Performed at [facility], [address] [place], [place] ??[id number] David Kat MD LAB_1 Performing Organization Address City/State/ZIP Code Phon e Number [facility] [phone] documented in this encounter Visit Diagnoses Diagnosis Abdominal pain, generalized - Primary Pelvic pain in female Unspecified symptom associated with fema le genital organs Abdominal bloating Flatulence, eructation, and gas pain Abdominal pain, generalized documented in this encounter Care Teams Binder Coverstitch Relationship Specialty Start Date End Date Alisha Kimball MD PCP - General 07/08/05 [address] [place] [address] documented as of this encounter
--- OUTSIDE RECORDS SUMMARY | 2022-04-13 07:39 | XMS_ITS | Encounter Summary ---
:1955 Author Organization [facility] Address [address] [place] [address] Care Team Providers Name Role Phone Alisha Kimball MD Primary Care Provider Encounter Details Date Type Department Care Team Description 10/30/2013 Orders Only [facility] Diabetes mellitus, type 2; [address] Hypercholesterolemia; [place] [address] Hypertension; [phone] Screening for t hyroid disorder; Screening, anem [...] 10/30/2013 1:03 PM C DT Performed at [facility], [address] [place] [address] ??[phone] Alisha Kimball MD LAB_1 Performing Organization Address City/State/ZIP Code Phon e Number [facility] [phone] TSH, SENSITIVE with FT4, FT3 (if needed) (10/30/2013 7:37 AM CDT) athologist Signature TSH, with 1.465 0.300 - [facility] Reflex 5.000 LABORATORIES uIU/ml Specimen Anatomical Collection Method Collection Time Receive d Time (Source) Location / / Volume Laterality 10/30/2013 7:37 AM 4 7:39 CDT AM CDT Narrative [facility] - 10/30/2013 2:45 PM C DT Performed at [facility], [address] [place] [address] ??[phone] Alisha Kimball MD LAB_1 Performing Organization Address [facility]/ZIP Code Phon e Number [facility] [phone] SODIUM (10/30/2013 7:37 AM CDT) athologist Signature Sodium 140 135 - 145 [facility] mmol/L Specimen Anatomical Collection Method Collection Time Receive d Time (Source) Location / / Volume Laterality 10/30/2013 7:37 AM 4 7:39 CDT AM CDT Narrative [facility] - 10/30/2013 2:04 PM C DT Performed at [facility], [address] [place] [address] ??[phone] Alisha Kimball MD LAB_1 Performing Organization Address [facility] Code Phon e Number [facility] [phone] POTASSIUM (10/30/2013 7:37 AM CDT) athologist Signature Potassium 4.2 3.5 - 5.3 [facility] mmol/L Specimen Anatomical Collection Method Collection Time Receive d Time (Source) Location / / Volume Laterality 10/30/2013 7:37 AM 4 7:39 CDT AM CDT Narrative [facility] - 10/30/2013 2:04 PM C DT Performed at [facility], [address] [place] [address] ??[phone] Alisha Kimball MD LAB_1 Performing Organization Address City/[facility]/ZIP Code Phon e Number [facility] [phone] ALT (SGPT) (10/30/2013 7:37 AM CDT) athologist Signature ALT (SGPT) 52 0 - 69 U/L [facility] Specimen Anatomical Collection Method Collection Time Receive d Time (Source) Location / / Volume Laterality 10/30/2013 7:37 AM 4 7:39 CDT AM CDT Narrative [facility] - 10/30/2013 2:04 PM C DT Performed at [facility], [address] [place] [address] ??[phone] Alisha Kimball MD LAB_1 Performing Organization Address City/[facility] Code Phon e Number [facility] [phone] MICROALB/CREAT RATIO (10/30/2013 7:37 AM CDT) Patholo [...] 10/30/2013 1:21 PM C DT Performed at [facility], [address] [place] [address] ??[phone] Alisha Kimball MD LAB_1 Performing Organization Address [facility] Phon e Number [facility] [phone] CREATININE / GFR (10/30/2013 7:37 AM CDT) [...] 10/30/2013 2:04 PM C DT Performed at [facility], [address] [place] [address] ??[phone] Alisha Kimball MD LAB_1 Performing Organization Address City/[facility]/ZIP [facility] Phon e Number [facility] [phone] (ABNORMAL) LIPID PANEL AND DIRECT LDL(IF NEEDED) [...] 10/30/2013 2:04 PM C DT Performed at [facility], [address] [place] [address] ??[phone] Alisha Kimabll MD LAB_1 Performing Organization Address [facility] Phon e Number [facility] [phone] (ABNORMAL) HGB A1C (10/30/2013 7:37 AM CDT) [...] 10/30/2013 1:58 PM C DT Performed at [facility], [address] [place] [address] ??[phone] Alisha Kimball MD LAB_1 Performing Organization Address City/[facility] Phon e Number [facility] [phone] documented in this encounter Visit Diagnoses Diagnosis Diabetes mellitus, type 2 (HRC) Type II or unspecified type diabetes dinora litus without mention of complication, not stated as uncontrolled Hypercholesterolemia Pure hypercholesterolemia Hypertension (HRC) Unspecified essential hypertension Screening for thyroid disorder Screening, anemia, deficiency, iron Screening for iron deficiency anemia documented in this encounter Care Teams Legal Process Specialist Relationship Specialty Start Date End Date Alisha Kimball MD PCP - General 07/08/[address] [place] [address] documented as of this encounter
--- OUTSIDE RECORDS SUMMARY | 2022-04-13 07:39 | XMS_ITS | Encounter Summary ---
:1955 Author Organization [facility] Address [address] [facility] [place] [address] Care Team Providers Name Role Phone Alisha Kimball MD Primary Care Provider Encounter Details Date Type Department Care Team Description 11/01/2013 Orders Only [facility] Claims MD Cande Security Contact Bill [address] [place] [address] Mailstop [id number] [phone] (Wo rk) Social History Tobacco Use Types [...] on filedocumented in this encounter Care Teams Professor Of Economics Relationship Specialty Start Date End Date Alisha Kimball MD PCP - General 07/08/[address] [place] [address] documented as of this encounter
--- OUTSIDE RECORDS SUMMARY | 2022-04-13 07:40 | XMS_ITS | Encounter Summary ---
:1955 Author Organization [facility] Address [address] [address] Care Team Providers Name Role Phone Alisha Kimball MD Primary Care Provider Encounter Details Date Type Department Care Team Description 11/30/2007 Office Visit [facility] Kiah August H, OTR/L Mallet Finger (Primary [address] Dx) [address] [place] [phone] Social History Tobacco Use Types Packs/Day Years Used Date Smoking Tobacco: Never Alcohol Use Standard Drinks/Week Comments Not Asked 0 (1 standard drink = 0.6 oz pure alcoho l) Sex Assigned at Date Recorded Not on file documented as of this encounter Progress Notes Kiah August H - 11/30/2007 3:20 PM CDT HAND OCCUPATIONAL THERAPY DAILY NOTE 11/30/2007 Patient Name: Loc Velasco [id number] Payor: SELF [id number] Plan: SELF INSURED Product Type: *No Product [...] Primary documented in this encounter Care Teams Retail Shift Leader Relationship Specialty Start Date End Date Alisha Kimball MD PCP - General 07/08/05 [address] [place] [address] documented as of this encounter
--- OUTSIDE RECORDS SUMMARY | 2022-04-13 07:40 | XMS_ITS | Encounter Summary ---
:1955 Author Organization [facility] Address [address] [place] [address] Care Team Providers Name Role Phone Alisha Kimball MD Primary Care Provider Encounter Details Date Type Department Care Team Description 10/24/2011 Orders Only [facility] Diabetes mellitus type II [address] (HRC) [place] [address] Social History Tobacco Use Types [...] AM 2 9:41 CDT AM CDT Alisha Kimball MD LAB_1 Performing Organization Address City/State/ZIP Code Phon e Number [facility] [phone] [facility] [address] [address] documented in this encounter Visit Diagnoses Diagnosis Diabetes mellitus type II (HRC) Type II or unspecified type diabetes dinora litus without mention of complication, not stated as uncontrolled documented in this encounter Care Teams Dip Tube Assembler Machine Relationship Specialty Start Date End Date Alisha Kimball MD PCP - General 07/08/05 [address] [place] [address] documented as of this encounter
--- OUTSIDE RECORDS SUMMARY | 2022-04-13 07:40 | XMS_ITS | Encounter Summary ---
:1955 Author Organization [facility] Address [address] [place] [address] Care Team Providers Name Role Phone Alisha Kimball MD Primary Care Provider Reason for Visit Reason Comments EXAM,ROUTINE patient is having problems w ith her near vison, she currently wears no glasses Encounter Details Date Type Department Care Team Description 04/28/2010 Office Visit [facility] Lebron Alfaro, Examination of eyes and visi on (Primary Dx); [address] OD Myopia; [place] [address] Presbyopia [phone] Social History Tobacco Use Types Packs/Day Years Used Date Smoking Tobacco: Never Alcohol Use Standard Drinks/Week Comments Not Asked 0 (1 standard drink = 0.6 oz pure alcoho l) Sex Assigned at Date Recorded Not on file documented as of this encounter Patient Instructions Patient InstructionsLebron Alfaro, OD - 04/28/2010 10:46 AM CDT Thank you for choosing [facility] for your eye care needs. Many tests [...] the clinic in the future? Appointment Center: [phone] Eye Dept: [phone] Online Services: [email or web address] For after hours care, call the CareLine at [phone] or . We look forward to taking [...] Presbyopia documented in this encounter Care Teams Commercial Art Instructor Relationship Specialty Start Date End Date Alisha Kimball MD PCP - General 07/08/05 [address] [place] [address] documented as of this encounter
--- OUTSIDE RECORDS SUMMARY | 2022-04-13 07:40 | XMS_ITS | Encounter Summary ---
:1955 Author [facility] Address [address] [address] Care Team Providers Name Role Phone Alisha Kimball MD Primary Care Provider Reason for Visit Reason Comments DIABETES EDUCATION Encounter Details Date Type Department Care Team Description 06/05/2010 Office Visit [facility] Janiya Naqvi Diabet es mellitus type Program CAITLYN Zavaleta, CDE II ([facility]) (Primary Dx) [address] [place] [address] [phone] Social History Tobacco Use Types Packs/Day Years Used Date Smoking Tobacco: Never Alcohol Use Standard Drinks/Week Comments Not Asked 0 (1 standard drink = 0.6 oz pure alcoho l) Sex Assigned at Date Recorded Not on file documented as of this encounter Patient Instructions Patient InstructionsJaniya Naqvi RN, CDE - 06/05/2010 5:22 PM BRONZE CHASER 1. Test blood sugar 1-2 times daily--before meals or 2 hours after a meal 2. Attend diabetes classes in 2-3 months 3. See Camille diabetes nurse on Wednesday at 430PM 4. Schedule appointment to see dietitian ZE CHASER documented in this encounter Progress Notes Janiya Naqvi RN, CDE - 06/05/2010 5:15 PM CST SUBJECTIVE Loc Velasco is referred by Dr.Karen Kimball([facility]) for Diabetes Education. Accompanied by: unaccompanied, prefers [...] days per wk and plans to join [employer] Diet/Eating Habits: eats 3 meals /day, has [...] meal Appointments to be scheduled (Appointment center [phone]): 1. Attend diabetes classes in 2-3 months 2. See Camille diabetes nurse on Wednesday at 430PM Time spent with the patient: 60 minutes for diabetes education and counseling. Janiya Naqvi RN, CDE 06/05/2010, 4:35 PM ZE CHASER documented in this encounter Plan of Treatment Not on filedocumented as of this encounter Visit Diagnoses Diagnosis Diabetes mellitus type II (HRC) - Primar y Type II or unspecified type diabetes dinora litus without mention of complication, not stated as uncontrolled documented in this encounter Care Teams Pulp Beater Relationship Specialty Start Date End Date Alisha Kimball MD PCP - General 07/08/05 [address] [place] [address] documented as of this encounter
--- OUTSIDE RECORDS SUMMARY | 2022-04-13 07:40 | XMS_ITS | Encounter Summary ---
:1955 Author Organization [employer] Address [address] [place] [address] Care Team Providers Name Role Phone Alisha Kimball MD Primary Care Provider Reason for Visit Reason Comments BP CHECK,NURSE Encounter Details Date Type Department Care Team Description 11/09/2011 Nursing Visit [facility] Financial Agent/Cm/Maryjo, Simona Unspecifi ed essential Department Nursing hypertension (Primary [address] [place]) [place] [address] [place], [place] [phone] Social History Tobacco Use Types Packs/Day Years Used Date Smoking Tobacco: Never Smokeless Tobacco: Never Alcohol Use Standard Drinks/Week Comments No 0 (1 standard drink = 0.6 oz pure alcoho l) Sex Assigned at Date Recorded Not on file documented as of this encounter Last Filed Vital Signs Vital Sign Reading Time Taken Comments Blood Pressure 128/92 11/09/2011 11:26 AM CDT Pulse 74 11/09/2011 11:26 AM CDT Temperature - - Respiratory Rate - - Oxygen Saturation - - Inhaled Oxygen Concentration - - Weight 85.3 kg (188 lb) 11/09/2011 11:16 AM CDT Height - - Body Mass Index 32.02 04/28/2010 8:10 AM CDT documented in this encounter Patient Instructions Patient InstructionsMay Xiong LPN - 11/09/2011 11:28 AM CDT What is high blood pressure? As your heart beats, it pumps blood through the blood vessels. The force of your blood against the vessel [place] is called blood pressure. It is measured and written as two numbers, such as 120/80. (This is read as 120 over 80.) The top number measures the blood pressure when your heart is pumping. Thebottom number measures blood pressure when your heart is resting between beats. If either number is high, your blood pressure is too high. For most people, normal blood pressure is less than 120/80. High blood pressure is also called hypertension. The condition has nothing to do with being hyper or very active. Why is high blood pressure harmful? High blood pressure can harm your body in many ways. It makes your heart work harder than it has to.It increases your risk of stroke, heart attack, heart failure, kidney failure and poor circulation. If you have high blood pressure with obesity, smoking, high cholesterol or diabetes, your risk of having a heart attack or stroke increases. What you can do to improve blood pressure control: ?? Increase physical activity and exercise. Get 30 minutes of moderate physical activity (such as brisk walking) most, if not all, days of the week. ?? Maintain a healthy weight or lose weight if needed. A weight loss of just 10 pounds can make a difference! ?? Follow a heart-healthy diet, such as the DASH eating plan, that encourages plenty of fruits and vegetables, whole grains and limit saturated fat, trans fat and sodium (salt). ?? Limit eating foods that are made with large amounts of salt, such as soups, processed meats, chips, condiments and frozen dinners. ?? Develop effective ways to manage stress, such as deep breathing or exercise. ?? Limit alcohol to no more than two drinks a day (men) or 1 drink a day (women). ?? Take your medications every day as prescribed. Do not stop taking your medications without talking to your clinic. documented in this encounter Progress Notes May Xiong LPN - 11/09/2011 11:33 AM CDT Sole Velasco here today for follow up blood pressure check. O BP 128/92 Pulse 74 Wt 188 lb (85.276 kg) Blood pressures recorded with automated. Borderline readings. P Results sent to Dr. Kimball for plan. May Xiong LPN documented in this encounter Plan of Treatment Not on filedocumented as of this encounter Visit Diagnoses Diagnosis Unspecified essential hypertension (HRC) - Primary Unspecified essential hypertension documented in this encounter Care Teams Dexigraph Operator Relationship Specialty Start Date End Date Alisha Kimball MD PCP - General 07/08/05 [address] [place] [address] documented as of this encounter
--- OUTSIDE RECORDS SUMMARY | 2022-04-13 07:40 | XMS_ITS | Encounter Summary ---
:1955 Author Organization [email or web address] Address [address] [place] [address] Care Team Providers Name Role Phone Alisha Kimball MD Primary Care Provider Reason for Referral Specialty Diagnoses / Procedures Referred By Contact Refer red To Contact Wendi Berry PA- C [address] [place] [address] Referral ID Status Reason Start Date Expiration Date Visits Requ ested Visits Authorized Reason for Visit Reason Comments Follow Up mallet injury Encounter Details Date Type Department Care Team Description 11/01/2007 Office Visit Specialty Center Jigar Mcgarry Mall et Finger (Primary [address], Dx) Surgery [address] [place] [phone] Social History Tobacco Use Types Packs/Day Years [...] Primary documented in this encounter Care Teams Customer Experience Intern Relationship Specialty Start Date End Date Alisha Kimball MD PCP - General 07/08/05 [address] [place] [address] documented as of this encounter
--- OUTSIDE RECORDS SUMMARY | 2022-04-13 07:40 | XMS_ITS | Encounter Summary ---
:1955 Author Organization [email or web address] Address [address], [place] [address] Care Team Providers Name Role Phone Alisha Kimball MD Primary Care Provider Encounter Details Date Type Department Care Team Description 12/27/2007 Office Visit Specialty Center Kiah August H, OTR/L Mallet Finger (Primary [address] Dx) [address] [place] [phone] Social History Tobacco Use Types Packs/Day Years Used Date Smoking Tobacco: Never Alcohol Use Standard Drinks/Week Comments Not Asked 0 (1 standard drink = 0.6 oz pure alcoho l) Sex Assigned at Date Recorded Not on file documented as of this encounter Progress Notes Kiah August H - 12/27/2007 10:05 AM CDT HAND OCCUPATIONAL THERAPY DAILY NOTE 12/27/2007 Patient Name: Loc Velasco [id number] Payor: SELF [id number] Plan: SELF INSURED Product Type: *No Product [...] Active ROM, Passive ROM, Strengthening and Check banana expert/3pt. Pinch strength. Will continue to see pt. 1x/week for next 6 weeks. MINUTES SEEN: 30 Treatment Charges: Physical Agent Modalities: Ultrasound: Quantity: 1 Treatment: Therapeutic Exercises: Quantity: 1 Kiah Beal OTR/Salome documented in this encounter Plan of Treatment Not on filedocumented as of this encounter Visit Diagnoses Diagnosis Mallet finger - Primary documented in this encounter Care Teams Front Office Agent Relationship Specialty Start Date End Date Alisha Kimball MD PCP - General 07/08/05 [address] [place] [address] documented as of this encounter
--- OUTSIDE RECORDS SUMMARY | 2022-04-13 07:40 | XMS_ITS | Encounter Summary ---
:1955 Author Organization [facility] Address [address] [place] [address] Care Team Providers Name Role Phone Alisha Kimball MD Primary Care Provider Reason for Referral Specialty Diagnoses / Procedures Referred By Contact Refer red To Contact Alisha Kimball MD [address] [place] [phone] Referral ID Status Reason Start Date Expiration Date Visits Requ ested Visits Authorized Scheduling Instructions . LEAD LINEMAN Specialty Diagnoses / Procedures Referred By Contact Refer red To Contact Alisha Kimball MD [address] [place] [phone] Referral ID Status Reason Start Date Expiration [...] call the number on your insurance card. LEAD LINEMAN Specialty Diagnoses / Procedures Referred By Contact Refer red To Contact Alisha Kimball MD [address] [place] [phone] Referral ID Status Reason Start Date Expiration [...] call the number on your insurance card. LEAD LINEMAN Reason for Visit Reason Comments LAB RESULTS glucose and A1C Encounter Details Date Type Department Care Team Description 05/14/2010 Telephone [facility] Alisha Kimball MD LAB RESULTS (glucose Practice [address] and A1C) [address] [place] [address] [place] [address] [phone] Social History Tobacco Use Types Packs/Day Years Used Date Smoking Tobacco: Never Alcohol Use Standard Drinks/Week Comments Not Asked 0 (1 standard drink = 0.6 oz pure alcoho l) Sex Assigned at Date Recorded Not on file documented as of this encounter Nursing Notes Francesca Cho CMA - 05/15/2010 3:35 PM CST Loc was notified. Francesca Cho LEAD LINEMAN [facility] - 05/15/2010 2:52 PM CST Patient is returning nurse's call LEAD LINEMAN Francesca Cho CMA - 05/15/2010 9:00 AM CST [facility] Francesca Cho LEAD LINEMAN Alisha Kimball - 05/14/2010 6:49 PM CST Please call Melia. Her glucose is better, but not normal. Her A1C suggests higher glucoses over the past 3 months, so she has diabetes. Should see environmental educator and marketing analytics analyst to learn glucose monitoring. See orders. Thanks! Alisha Kimball MD LEAD LINEMAN documented in this encounter Plan of Treatment Scheduled Referrals Name Type Priority Associated Diagnoses Order S chedule DIABETES ED CLASSES Referral Routine Diabetes mellitus typ e Ordered: 05/14/2010 II ([facility]) DIABETES ED DIETITIAN Referral Routine Diabetes mellitus t ype Ordered: 05/14/2010 VISIT II ([facility]) DIABETES ED NURSE VISIT Referral Routine Diabetes mellitus type Ordered: 05/14/2010 II ([facility]) documented as of this encounter Visit Diagnoses Diagnosis Diabetes mellitus type II ([facility]) - Primar y Type II or unspecified type diabetes dinora litus without mention of complication, not stated as uncontrolled documented in this encounter Care Teams Ornamental Plaster Sticker Relationship Specialty Start Date End Date Alisha Kimball MD PCP - General 07/08/05 [address] [place] [address] documented as of this encounter
--- OUTSIDE RECORDS SUMMARY | 2022-04-13 07:40 | XMS_ITS | Encounter Summary ---
:1955 Author Organization [facility] Address [address] [place] [address] Care Team Providers Name Role Phone Alisha Kimball MD Primary Care Provider Encounter Details Date Type Department Care Team Description 07/16/2009 Imaging [facility] Screening, Mammography Unspecified [address] [place] [address] Social History Tobacco Use Types [...] Resu lts for this SCREENING BILAT W STOCK COUNTER Unspecified procedure are in CAD the results section. documented in this encounter Results MAMMOGRAM SCREENING BILATERAL [[id number]] (07/16/2009 8:43 AM STOCK COUNTER) Anatomical Region Laterality Modality Breast Bilateral Mammography Specimen (Source) Anatomical Location Collection Method / Collectio n Time Received Time / Laterality Volume Narrative 07/17/2009 1:31 PM STOCK COUNTER BILATERAL FULL FIELD DIGITAL SCREENING MAMMOGRAM Performed [...] unspecified documented in this encounter Care Teams General Office Clerk Relationship Specialty Start Date End Date Alisha Kimball MD PCP - General 07/08/05 [address] [place] [address] documented as of this encounter
--- OUTSIDE RECORDS SUMMARY | 2022-04-13 07:40 | XMS_ITS | Encounter Summary ---
:1955 Author Organization [facility] Address [address] [place] [address] Care Team Providers Name Role Phone Alisha Kimball MD Primary Care Provider Reason for Visit Reason Comments LAB RESULTS glucose Encounter Details Date Type Department Care Team Description 04/28/2010 Telephone [facility] Alisha Kimball MD LAB RESULTS (glucose) Practice [address] [place] [address] [place], [place] [id number] [phone] Social History Tobacco Use Types Packs/Day Years [...] will also do A1C. See orders. Thanks! Alisha Kimball MD documented in this encounter Plan of Treatment Not on filedocumented as of this encounter Results (ABNORMAL) GLUCOSE - FASTING > 8 HRS FASTING (V77.1) (05/14/2010 7:35 AM VEIN ACCESS TECHNICIAN) Patholo gist Method Time Signature Glucose 106 (H) 70 - 100 [facility] mg/dl Hours Fasting 12 hours [facility] Specimen Anatomical Collection Method Collection Time Receive d Time (Source) Location / / Volume Laterality 05/14/2010 7:35 AM 0 7:46 VEIN ACCESS TECHNICIAN AM VEIN ACCESS TECHNICIAN Alisha Kimball MD LAB_1 Performing Organization Address City/[facility] Phon e Number [facility] [employer] [phone] [address] (ABNORMAL) HGB A1C (05/14/2010 7:35 AM VEIN ACCESS TECHNICIAN) athologist Signature Hgb A1c 7.4 (H) 4.3 - 6.1 % [facility] Comment: The usual A1C goal for people with diabe jaci, age 18-75, is < 7.0%. Physicians may recommend a higher or lo wer goal for specific individuals. Specimen Anatomical Collection Method Collection Time Receive d Time (Source) Location / / Volume Laterality 05/14/2010 7:35 AM 0 7:46 VEIN ACCESS TECHNICIAN AM VEIN ACCESS TECHNICIAN Alisha Kimball MD LAB_1 Performing Organization Address City/[facility] Phon e Number [facility] [employer] [phone] [address] documented in this encounter Visit Diagnoses Diagnosis Hyperglycemia - Primary Other abnormal glucose documented in this encounter Care Teams Industrial Retrofit Designer Relationship Specialty Start Date End Date Alisha Kimball MD PCP - General 07/08/05 [address] [place] [address] documented as of this encounter
--- OUTSIDE RECORDS SUMMARY | 2022-04-13 07:40 | XMS_ITS | Encounter Summary ---
:1955 Author Organization [facility] Address [address] [address] Care Team Providers Name Role Phone Alisha Kimball MD Primary Care Provider Encounter Details Date Type Department Care Team Description 11/01/2007 Office Visit Specialty Center Kiah August H, OTR/L Mallet Finger (Primary [address] Dx) [address] [place] [address] [phone] Social History Tobacco Use Types Packs/Day Years Used Date Smoking Tobacco: Never Alcohol Use Standard Drinks/Week Comments Not Asked 0 (1 standard drink = 0.6 oz pure alcoho l) Sex Assigned at Date Recorded Not on file documented as of this encounter Progress Notes Kiah August H - 11/01/2007 4:00 PM CDT HAND OCCUPATIONAL THERAPY PROGRESS REPORT 11/01/2007 Patient Name: Loc Velasco [id number] Payor: SELF [id number] Plan: SELF INSURED Product Type: *No Product [...] wean use of mallet splint, A/PROM, blocking This patient has attended 4 of 4 sessions since the initial visit on (date) 08/17/07. This patient has 0 No Shows & 0 Cancellations. 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 Is concerned her ring and small fingers are also stiff and swollen. PAIN: Intensity Level: Current 0/10, Worst 5/10, Least 0/10 Location: Middle,ring and small fingers Pain Quality: Soreness SENSATION: per patient report and WITHIN NORMAL LIMITS EDEMA: Min ring and small finger WOUND / INCISION: N/A SCAR: N/A ACTIVE RANGE OF MOTION Left: FINGER: Limited: Long Finger: MP: 0-82 PIP: 0-26 DIP: 0-10 Ring Finger: MP: 0-93 PIP: 0-95 DIP: 0-14 Small Finger: MP: 0-89 PIP: 0-69 DIP: 0-35 STRENGTH: Not tested secondary to precautions ASSESSMENT At risk for injury : Edema: Range of Motion needs improvement Strength : Functional limitations ACHIEVEMENT OF SHORT-TERM GOALS: met Today's treatment: Self Care/Home Management and Training: Patient Education: Home Exercise Program 10 minutes Instructed pt. In contrast bath to decrease pain, edema and increase tissue extensibility. Pt. Was also instructed to only wear splint for vigorous activities such as gardening and wear splint while sleeping . Therapeutic Exercises: 15 minutes, blocking, AROM of middle, ring and small fingers and PROM of middle,ring and small fingers excluding DIP of middle finger. Pt. Needed moderate cues and demonstration to complete ex. Correctly. TREATMENT PLAN Loc Velasco will continue with the initially prescribed treatment plan with focus on the following: Check Out for Orthotics/Prosthetics Manual Therapy Techniques: Physical Agent Modalities: Heat Cold Fluidotherapy Paraffin Wax Immersion Self Care/Home Management and Training: Patient Education: Home Exercise Program Therapeutic Exercise: AROM, AAROM, PROM, Blocking, Tendon Gliding and Place and Hold NEW SHORT-TERM GOALS: to be completed in 4 weeks. Patient will be able to complete all dressing and feeding tasks independently. Pt. Will be able to garden with no/minally any difficulties. REHAB POTENTIAL: Excellent TOLERANCE TOWARD TREATMENT: Excellent Patient will continue with hand/occupational therapy 1 times per week for 4 Weeks and may be modified as deemed appropriate. PLAN for Next Treatment: Active ROM, Passive ROM, blocking and Fluidotherapy if edema decreases Treatment time: 25 Kiah Beal OTR/L Treatment charges: Treatment: Self Care/Home Management and Training: Quantity: 1 Therapeutic Exercises: Quantity: 1 documented in this encounter Plan of Treatment Not on filedocumented as of this encounter Visit Diagnoses Diagnosis Mallet finger - Primary documented in this encounter Care Teams Harvest Manager Relationship Specialty Start Date End Date Alisha Kimball MD PCP - General 07/08/05 [address] [place] [address] documented as of this encounter
--- OUTSIDE RECORDS SUMMARY | 2022-04-13 07:40 | XMS_ITS | Encounter Summary ---
:1955 Author Organization [facility] Address [address] [place] [address] Care Team Providers Name Role Phone Alisha Kimball MD Primary Care Provider Reason for Visit Reason Comments PAIN, FOOT +new pt, top of left foot pa in, x-rays 04-28-10, ref by Mina Encounter Details Date Type Department Care Team Description 05/26/2010 Office Visit Specialty Center Noy Lanza hritis of foot [address] [facility] LAURA Robles joint (Pr imary Dx) Surgery [address] [place] [address] Social History Tobacco Use Types Packs/Day Years Used Date Smoking Tobacco: Never Alcohol Use Standard Drinks/Week Comments Not Asked 0 (1 standard drink = 0.6 oz pure alcoho l) Sex Assigned at Date Recorded Not on file documented as of this encounter Last Filed Vital Signs Vital Sign Reading Time Taken Comments Blood Pressure 98/58 05/26/2010 2:55 PM MINIATURE SET DESIGNER Pulse 64 05/26/2010 2:55 PM MINIATURE SET DESIGNER Temperature 36.4 ??C (97.5 ??F) 05/26/2010 2:55 PM MINIATURE SET DESIGNER Respiratory Rate - - Oxygen Saturation - - Inhaled Oxygen Concentration - - Weight - - Height - - Body Mass Index - - documented in this encounter Progress Notes Travis Lanza - 05/26/2010 3:45 PM CST Chief Complaint: Loc Velasco is a 55 yr old female who was asked to be seen by Dr. Alisha Kimball for problems she is having with the left foot. She is relating discomfort on the dorsum of both feet, but the left foot is causing her more problems. She describes restricted motion and a crunchy sensation on ambulation. She feels like something going to break. This has been a problem gradually increasing over the last year. She has tried working with shoewear and over the counter inserts with some mild improvement. Has also been doing some stretching. Continues to be a significant problem and she is requesting evaluation and recommendations. She has a previous history of plantar fascial symptoms.She relates a history of a very active lifestyle with no significant chronic foot problems until recently. Patient's problem list, medications, nurse's notes, and past medical and social history were reviewed in the electronic medical record. Famaly history positive for diabetes and heart disease ALLERGIES: Sulfa drugs REVIEW OF SYSTEMS: Ten point reveiw of systems was negative with the exception of limping, excessivethirst and blurry vision. PHYSICAL EXAM: BP 98/58 Pulse 64 Temp(Src) 97.5 ??F (36.4 ??C) (Oral) LMP Hysterectomy GENERAL APPEARANCE: Patient is alert and fully cooperative with the history and examination. No signof distress is noted during the visit. PSYCHIATRIC: Affect is pleasent and appropriate. Patient appears motivated to improve health. RESPIRATORY: Breathing is regular and unlabored while sitting. HEENT: Hearing is intact to spoken word. Speech is clear. No gross evidence of visual impairment that would impact ambulation. MUSCULOSKELETAL: Examination of the foot and ankle shows significant restriction of subtalar joint motion on the left foot. She does experience some discomfort on stressing the subtalar joint left foot. On the right foot she has normal subtalar joint motion. There is no obvious swelling or erythema present, skin color and temperature within normal limits Muscle testing, tone and turgor was unremarkable. No significant equinus deformity. No torsional abnormalities or leg length inequality noted. X-rays were available of the left foot showing significant rear foot and midfoot degenerative changes. VASCULAR: Pedal pulses were palpable. Skin color and temperature was within normal limits. Capillaryrefill was less than two seconds at the level of the digits. No significant edema or varicosities were noted. NEUROLOGIC: Light touch and vibratory sensation was generally intact bilaterally. No evidence of weakness in the lower extremity. No clinical signs of neuropathy. No abnormal reflexes noted. DERMATOLOGIC: Skin is intact to both lower extremities without significant lesions, rashs, or abrasions. No paronychia or evidence of soft tissue infection noted. ASSESSMENT/PLAN: Patient's history and examination are consistent with significant rear foot and midfoot degenerative changes. I discussed my findings and the x-rays with the patient. She has significant limitation of subtalar joint and rear foot motion on the left foot. She relates stable shoe wear and orthotics seem to be very helpful. Discussed custom orthotics, and patient would like to continue with [id number] products. Discussed some general stretching and range of motion exercises, alsodiscussed shoewear and important features. She did not want to consider a cortisone injection at this time and will followup if her symptoms worsen. She will continue oral anti-inflammatory medication as tolerated and needed. All questions were answered. Travis Lanza DPM ATURE SET DESIGNER documented in this encounter Plan of Treatment Scheduled Referrals Name Type Priority Associated Diagnoses Order S chedule FOOT & ANKLE/PODIATRY Referral Routine Foot pain Ordere d: 04/28/2010 CONSULT-ADULT/PEDS documented as of this encounter Visit Diagnoses Diagnosis Osteoarthritis of foot joint - Primary Osteoarthrosis, unspecified whether gene ralized or localized, ankle and foot documented in this encounter Care Teams Asphalt Surface Heater Operator Relationship Specialty Start Date End Date Alisha Kimball MD PCP - General 07/08/05 [address] [place] [address] documented as of this encounter
--- OUTSIDE RECORDS SUMMARY | 2022-04-13 07:40 | XMS_ITS | Encounter Summary ---
:1955 Author Organization [facility] Address [address], [place] [address] Care Team Providers Name Role Phone Alisha Kimball MD Primary Care Provider Encounter Details Date Type Department Care Team Description 01/02/2008 Office Visit Specialty Center Kiah August H, OTR/L Mallet Finger (Primary [address] Dx) [address] [place] [address] [phone] Social History Tobacco Use Types Packs/Day Years Used Date Smoking Tobacco: Never Alcohol Use Standard Drinks/Week Comments Not Asked 0 (1 standard drink = 0.6 oz pure alcoho l) Sex Assigned at Date Recorded Not on file documented as of this encounter Progress Notes Kiah August H - 01/02/2008 4:37 PM CDT HAND OCCUPATIONAL THERAPY DAILY NOTE 01/02/2008 Patient Name: Loc Velasco [id number] Payor: SELF [id number] Plan: SELF INSURED Product Type: *No Product [...] continues to push on her fingers. OBJECTIVE Log Data Technician strength: right 39,44,43 left 24,22,25 3pt. [...] Primary documented in this encounter Care Teams Rn Intern Relationship Specialty Start Date End Date Alisha Kimball MD PCP - General 07/08/05 [address] [place] [address] documented as of this encounter
--- OUTSIDE RECORDS SUMMARY | 2022-04-13 07:40 | XMS_ITS | Encounter Summary ---
:1955 Author Organization [facility] Address [address] [address] Care Team Providers Name Role Phone Alisha Kimball MD Primary Care Provider Encounter Details Date Type Department Care Team Description 11/10/2007 [facility] Kiah August H, OTR/L Mallet Finger (Primary [address] Dx) [address] [place] [phone] Social History Tobacco Use Types Packs/Day Years Used Date Smoking Tobacco: Never Alcohol Use Standard Drinks/Week Comments Not Asked 0 (1 standard drink = 0.6 oz pure alcoho l) Sex Assigned at Date Recorded Not on file documented as of this encounter Progress Notes Kiah August H - 11/10/2007 3:36 PM CDT HAND OCCUPATIONAL THERAPY DAILY NOTE 11/10/2007 Patient Name: Loc Velasco [id number] Payor: SELF [id number] Plan: SELF INSURED Product Type: *No Product [...] Primary documented in this encounter Care Teams Asphalt Mixer Relationship Specialty Start Date End Date Alisha Kimball MD PCP - General 07/08/05 [address] [place] [address] documented as of this encounter
--- OUTSIDE RECORDS SUMMARY | 2022-04-13 07:40 | XMS_ITS | Encounter Summary ---
:1955 Author Organization [facility] Address [address], [place] [address] Care Team Providers Name Role Phone Alisha Kimball MD Primary Care Provider Encounter Details Date Type Department Care Team Description 01/30/2008 Office Visit Specialty Center Kiah August H, OTR/L Mallet Finger (Primary [address] Dx) [address] [place] [address] [phone] Social History Tobacco Use Types Packs/Day Years Used Date Smoking Tobacco: Never Alcohol Use Standard Drinks/Week Comments Not Asked 0 (1 standard drink = 0.6 oz pure alcoho l) Sex Assigned at Date Recorded Not on file documented as of this encounter Progress Notes Kiah August H - 01/30/2008 3:33 PM CDT HAND OCCUPATIONAL THERAPY DAILY/DISCHARGE NOTE 01/30/2008 Patient Name: Loc Velasco [id number] Payor: SELF [id number] Plan: SELF INSURED Product Type: *No Product [...] 9-44 ring PIP 0-94 DIP 0-51 Left old coin dealer strength 24,35,26 Left 3pt. Pinch 10,12,11 TREATMENT [...] Primary documented in this encounter Care Teams Cafeteria Attendant Relationship Specialty Start Date End Date Alisha Kimball MD PCP - General 07/08/05 [address] [place] [address] documented as of this encounter
--- OUTSIDE RECORDS SUMMARY | 2022-04-13 07:40 | XMS_ITS | Encounter Summary ---
:1955 Author Organization [facility] Address [address] [place] [address] Care Team Providers Name Role Phone Alisha Kimball MD Primary Care Provider Reason for Visit Reason Onset Date Comments RESULTS, X-RAY 04/02/2008 Encounter Details Date Type Department Care Team Description 04/02/2008 Telephone [facility] Alexis Frazier, PAEb RESULTS, X-RAY [address] [place] [address] [place], [place] [phone] (Wo rk) Social History Tobacco Use Types [...] on filedocumented in this encounter Care Teams Waybill Clerk Relationship Specialty Start Date End Date Alisha Kimball MD PCP - General 07/08/05 [address] [place] [address] documented as of this encounter
--- OUTSIDE RECORDS SUMMARY | 2022-04-13 07:40 | XMS_ITS | Encounter Summary ---
:1955 Author Organization [facility] Address [address] [place] [address] Care Team Providers Name Role Phone Alisha Kimball MD Primary Care Provider Encounter Details Date Type Department Care Team Description 03/29/2008 Imaging [facility] [address] [place] [address] Social History Tobacco Use Types [...] limb documented in this encounter Care Teams Science Instructor Relationship Specialty Start Date End Date Alisha Kimball MD PCP - General 07/08/05 [address] [place] [address] documented as of this encounter
--- OUTSIDE RECORDS SUMMARY | 2022-04-13 07:40 | XMS_ITS | Encounter Summary ---
:1955 Author Organization [facility] Address [address] [place] [address] Care Team Providers Name Role Phone Alisha Kimball MD Primary Care Provider Encounter Details Date Type Department Care Team Description 01/16/2008 Office Visit Specialty Center Kiah August H, OTR/L Mallet Finger (Primary [address] Dx) [address] [place] [phone] Social History Tobacco Use Types Packs/Day Years Used Date Smoking Tobacco: Never Alcohol Use Standard Drinks/Week Comments Not Asked 0 (1 standard drink = 0.6 oz pure alcoho l) Sex Assigned at Date Recorded Not on file documented as of this encounter Progress Notes Kiah August H - 01/16/2008 3:59 PM CDT HAND OCCUPATIONAL THERAPY DAILY NOTE 01/16/2008 Patient Name: Loc Velasco [id number] Payor: SELF [id number] Plan: SELF INSURED Product Type: *No Product [...] digisleeves, taped flexion, tendon glides VISIT NUMBER: 14 out of 14 PAIN: Intensity Level: Current 7/10 with stretch SUBJECTIVE Patient reports she is able to complete work tasks with minimal compensation. OBJECTIVE Left PIP DIP 0-79 10-46 (blocked flexion 47) post treatment. TREATMENT Physical Agent Modalities: Fluidotherapy 10 minutes for increased tissue extensibility Therapeutic Exercises: 20 minutes AROM/PROM of digits, Blocking and Tendon Glides. Instructed and issued pt. Theraputty for increased production team member/pinch strength. ASSESSMENT Pain: decreased Edema: decreased Range of Motion increased Strength : needs improvement Functional limitations TREATMENT PLAN Active ROM, Passive ROM,strengthening Will continue to see pt. In 2 weeks MINUTES SEEN: 30 Treatment Charges: Exercise Supplies: Theraputty Physical Agent Modalities: Fluidotherapy / whirlpool Treatment: Therapeutic Exercises: Quantity: 1 Kiah Beal,OTR/L documented in this encounter Plan of Treatment Not on filedocumented as of this encounter Visit Diagnoses Diagnosis Mallet finger - Primary documented in this encounter Care Teams Components Engineer Relationship Specialty Start Date End Date Alisha Kimball MD PCP - General 07/08/05 [address] [place] [address] documented as of this encounter
--- OUTSIDE RECORDS SUMMARY | 2022-04-13 07:40 | XMS_ITS | Encounter Summary ---
:1955 Author Organization [facility] Address [address] [place] [address] Care Team Providers Name Role Phone Alisha Kimball MD Primary Care Provider Encounter Details Date Type Department Care Team Description 05/15/2010 [facility] [address] Fami ly history of Bone Density osteoporosis [address] [place] [address] Social History Tobacco Use Types [...] Family history of Results for this SPINE/HIP [facility] osteoporosis procedure are i n the results section. documented in this encounter Results DEXA BONE DENSITY SPINE/HIP ROUTINE (05/15/2010 7:58 AM [facility]URNER) Anatomical Region Laterality Modality Lower Extremity, Spine, Hip, L-Spine Oth er Specimen (Source) Anatomical Location Collection Method / Collectio n Time Received Time / Laterality Volume Narrative 05/15/2010 8:11 AM GR[facility]URNER WHO Criteria for the diagnosis of osteoporosis: T-score >-1 Normal T-score between -1 and -2.5 Osteopenia T-score <-2.5 Osteoporosis Fracture risk: T-score -1 ?? 2 times increased ?-2 ?? 4 times incre ased ?-3 ?? 6 times incre ased *With previous fragility fracture, risk of subsequent fracture doubles again SCREENING FOR OSTEO, HOLD CALCIUM Sql Developer Dba and Model of Instrument: [email or web address] Demographics Age: 55 yr Gender: female Height [...] Alcohol 3units or more per day (on Inspirotec):No Currently smoking:No If no, smoked for more [...] doubles again SCREENING FOR OSTEO, HOLD CALCIUM Sql Developer Dba and Model of Instrument: [email or web address] Demographics Age: 55 yr Gender: female Height [...] Alcohol 3units or more per day (on Inspirotec):No Currently smoking:No If no, smoked for more [...] osteoporosis documented in this encounter Care Teams County Judge Relationship Specialty Start Date End Date Alisha Kimball MD PCP - General 07/08/05 [address] [place] [address] documented as of this encounter
--- OUTSIDE RECORDS SUMMARY | 2022-04-13 07:40 | XMS_ITS | Encounter Summary ---
:1955 Author Organization [facility] Address [address] [place] [address] Care Team Providers Name Role Phone Alisha Kimball MD Primary Care Provider Reason for Visit Reason Comments Nutrition Counseling Encounter Details Date Type Department Care Team Description 07/29/2010 Office Visit [facility] Meaghan Palm, Diab etes mellitus type Clinic RD, LD II ([facility]) (Primary Dx) [address] [place] [address] Social History Tobacco Use Types [...] spouse, who is following similar eating habits. 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 Changes since dx: eating smaller portions, no sweets, Large amount of vegetables and protein in diet Exercise: brisk walk(~1 mile)3 times/wk in the [facility] with friends before work, thinking [...] once a week. Snack - lite yogurt, [employer] bar or Glucerna Dinner @ around 5-5:30 [...] of controlled carb meal plan. Calorie Intake. [phone] calories with 15-30 grams of carb per [...] 07/29/2010 60 minutes in education and counseling MAKER documented in this encounter Plan of Treatment Not on filedocumented as of this encounter Visit Diagnoses Diagnosis Diabetes mellitus type II ([facility]) - Primar y Type II or unspecified type diabetes dinora litus without mention of complication, not stated as uncontrolled documented in this encounter Care Teams Internal Medicine Nurse Practitioner Relationship Specialty Start Date End Date Alisha Kimball MD PCP - General 07/08/05 [address] [place] [address] documented as of this encounter
--- OUTSIDE RECORDS SUMMARY | 2022-04-13 07:40 | XMS_ITS | Encounter Summary ---
:1955 Author Organization [facility] Address [address] [place] [address] Care Team Providers Name Role Phone Alisha Kimball MD Primary Care Provider Reason for Visit Reason Onset Date Comments QUESTIONS, GENERAL 10/03/2007 Encounter Details Date Type Department Care Team Description 10/03/2007 Telephone Specialty Center 401 Jigar Mcgarry V, QUESTIONS, GENERAL [facility] [address] [place] [address] [place] [address] [phone] (Wo rk) Social History Tobacco Use Types Packs/Day Years Used Date Smoking Tobacco: Never Alcohol Use Standard Drinks/Week Comments Not Asked 0 (1 standard drink = 0.6 oz pure alcoho l) Sex Assigned at Date Recorded Not on file documented as of this encounter Nursing Notes Shanice Palmer - 10/03/2007 9:18 AM CDT Called patient. Patient will come in for the later appointment to ensure that she has been splinted for a long enough period of time. She agrees to continue with range of motion of her other fingers aswell as the other joints of the affected finger to prevent stiffness. Shanice Palmer LPN Kacie Partida - 10/03/2007 8:45 AM CDT Melia is calling this morning to cancel appt. With Dr. Mcgarry 10/04/07 and states she is supposed towait until October [address] Mcgarry will not be available until 10/31 and she wants to know if it's ok to wait that long. Kacie Partida documented in this encounter Plan of Treatment Not on filedocumented as of this encounter Visit Diagnoses Not on filedocumented in this encounter Care Teams Optical Lab Technician Relationship Specialty Start Date End Date Alisha Kimball MD PCP - General 07/08/05 [address] [place] [address] documented as of this encounter
--- OUTSIDE RECORDS SUMMARY | 2022-04-13 07:40 | XMS_ITS | Encounter Summary ---
:1955 Author Organization [facility] Address [address], [place] [address] Care Team Providers Name Role Phone Alisha Kimball MD Primary Care Provider Encounter Details Date Type Department Care Team Description 12/07/2007 Office Visit [facility] Kiah August H, OTR/L Mallet Finger (Primary [address] Dx) [address] [place] [phone] Social History Tobacco Use Types Packs/Day Years Used Date Smoking Tobacco: Never Alcohol Use Standard Drinks/Week Comments Not Asked 0 (1 standard drink = 0.6 oz pure alcoho l) Sex Assigned at Date Recorded Not on file documented as of this encounter Progress Notes Kiah August H - 12/07/2007 4:16 PM CDT HAND OCCUPATIONAL THERAPY DAILY NOTE 12/07/2007 Patient Name: Loc Velasco [id number] Payor: SELF [id number] Plan: SELF INSURED Product Type: *No Product [...] mallet splint, A/PROM, blocking, digisleeves VISIT NUMBER: 9 out of 9 PAIN: Intensity Level: Current 0/10 however pt. Has pain with stretch. SUBJECTIVE Patient reports she is wearing digisleeves at times during the day. OBJECTIVE Right middle finger PIP 0-66 [id number] TREATMENT Physical Agent Modalities: Paraffin wax 10 minutes for increased tissue extensibility Therapeutic Exercises: 20 minutes AROM/PROM of digits, Blocking and Tendon Glides Instructed pt. To not passively stretch and complete blocked flexion of middle finger DIP. Gentle joint mobilization to ring finger PIP joint. ASSESSMENT At risk for injury : Edema: Range of Motion needs improvement Strength : Functional limitations TREATMENT PLAN Active ROM, Passive ROM, and Paraffin Bath MINUTES SEEN: 30 Treatment Charges: Physical Agent Modalities: Paraffin bath Treatment: Therapeutic Exercises: Quantity: 1 Kiah Beal OTR/L documented in this encounter Plan of Treatment Not on filedocumented as of this encounter Visit Diagnoses Diagnosis Mallet finger - Primary documented in this encounter Care Teams Performance Test Engineer Relationship Specialty Start Date End Date Alisha Kimball MD PCP - General 07/08/05 [address] [place] [address] documented as of this encounter
--- OUTSIDE RECORDS SUMMARY | 2022-04-13 07:40 | XMS_ITS | Encounter Summary ---
:1955 Author Organization [facility], [facility]–1983 Address [address] [place] [address] Care Team Providers Name Role Phone Alisha Kimball MD Primary Care Provider Reason for Referral Specialty Diagnoses / Procedures Referred By Contact Refer red To Contact Alisha Kimball MD [address] [place] [address] Referral ID Status Reason Start Date Expiration Date Visits Requ ested Visits Authorized Scheduling Instructions If an appointment with [facility] was advised and you have not been contacted to schedule that appo intment within 3 business days, please call [phone] for assistance. Specialty Diagnoses / Procedures Referred By Contact Refer red To Contact Alisha Kimball MD [address] [place] [address] Referral ID Status Reason Start Date Expiration Date Visits Requ ested Visits Authorized Scheduling Instructions If an appointment with [facility] was advised and you have not been contacted to schedule that appo intment within 3 business days, please call [phone] for assistance. Reason for Visit Reason Comments ROUTINE HEALTH MAINTENANCE Encounter Details Date Type Department Care Team Description 04/28/2010 Office Visit [facility] Alisha Kimball, [facility] (Primary Dx); Practice Breast screening, unspecified; 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 Otherwise as above. ROS: A comprehensive review [...] reflexes are intact and symmetric. Left lateral mid-drawing in machine tender. No erythema, edema, increased warmth. CMS [...] Tobacco Status reviewed? (see History: Social-Substance) -YES child care attendant offered? -DECLINED. Aspirin taken daily? - [...] Results MAMMOGRAM SCREENING BILATERAL (07/21/2010 9:27 AM LINE INSTALLER) Anatomical Region Laterality Modality Breast Bilateral Mammography Specimen (Source) Anatomical Location Collection Method / Collectio n Time Received Time / Laterality Volume Narrative 07/22/2010 2:03 PM LINE INSTALLER BILATERAL FULL FIELD DIGITAL SCREENING MAMMOGRAM Performed [...] BONE DENSITY SPINE/HIP ROUTINE (05/15/2010 7:58 AM LINE INSTALLER) Anatomical Region Laterality Modality Lower Extremity, Spine, Hip, L-Spine Oth er Specimen (Source) Anatomical Location Collection Method / Collectio n Time Received Time / Laterality Volume Narrative 05/15/2010 8:11 AM LINE INSTALLER WHO Criteria for the diagnosis of osteoporosis: T-score >-1 Normal T-score between -1 and -2.5 Osteopenia T-score <-2.5 Osteoporosis Fracture risk: T-score -1 ?? 2 times increased ?-2 ?? 4 times incre ased ?-3 ?? 6 times incre ased *With previous fragility fracture, risk of subsequent fracture doubles again SCREENING FOR OSTEO, HOLD CALCIUM Greenskeeper and Model of Instrument: [employer] Demographics Age: 55 yr Gender: female Height [...] Alcohol 3units or more per day (on Newvem ge):No Currently smoking:No If no, smoked for [...] doubles again SCREENING FOR OSTEO, HOLD CALCIUM Greenskeeper and Model of Instrument: [employer] Demographics Age: 55 yr Gender: female Height [...] Signature Glucose 134 (H) 70 - 100 [facility] mg/dl Hours Fasting 15 hours [facility] Specimen Anatomical Collection Method Collection Time Receive d Time (Source) Location / / Volume Laterality 04/28/2010 8:57 AM 0 9:03 CDT AM CDT Alisha Kimball MD LAB_1 Performing Organization Address City/[facility] Phon e Number [employer] [phone] [address] ALT (SGPT) (04/28/2010 8:57 AM CDT) athologist Signature ALT (SGPT) 57 0 - 69 U/L [facility] Specimen Anatomical Collection Method Collection Time Receive d Time (Source) Location / / Volume Laterality 04/28/2010 8:57 AM 0 9:03 CDT AM CDT Alisha Kimball MD LAB_1 Performing Organization Address [facility] Phon e Number [employer] [phone] [address] CREATININE / GFR (04/28/2010 8:57 AM CDT) Analysis Performed At Patho logist Time Signature Creatinine 0.79 0.52 - [facility] 1.04 mg/dl GFR, Estimated >60.0 >60 [facility] ml/min/1.7 3m2 GFR, Est., If >60.0 >60 [facility] Black ml/min/1.7 3m2 Specimen Anatomical Collection Method Collection Time Receive d Time (Source) Location / / Volume Laterality 04/28/2010 8:57 AM 0 9:03 CDT AM CDT Alisha Kimball MD LAB_1 Performing Organization Address City/State/ZIP Code Phon e Number [facility] [employer] [phone] [address] HEMOGRAM/PLTS (04/28/2010 8:57 AM CDT) athologist Signature WBC 7.0 4.0 - 11.0 [facility] k/ul RBC 5.06 4.0 - 5.2 [facility] M/ul Hemoglobin 14.9 12.0 - 16.0 [facility] g/dl HCT 45.1 36.0 - 46.0 [facility] % MCV 89.2 80 - 100 fl [facility] MCH 29.5 26 - 34 pg [facility] MCHC 33.1 32 - 36 [facility] g/dl RDW 13.2 11.5 - 14.5 [facility] % Platelets 263 150 - 450 [facility] k/ul Specimen Anatomical Collection Method Collection Time Receive d Time (Source) Location / / Volume Laterality 04/28/2010 8:57 AM 0 9:03 CDT AM CDT Alisha Kimball MD LAB_1 Performing Organization Address City/[facility]/ZIP Code Phon e Number [employer] [phone] [address] TSH, SENSITIVE (WITH REFLEX)[0191] - Clinics ONLY (04/28/2010 8:57 AM CDT) athologist Signature TSH, with 1.966 0.465 - [facility] Reflex 4.68 uIU/ml Specimen Anatomical Collection Method Collection Time Receive d Time (Source) Location / / Volume Laterality 04/28/2010 8:57 AM 0 9:03 CDT AM CDT Alisha Kimball MD LAB_1 Performing Organization Address City/[facility]/ZIP Code Phon e Number [employer] [phone] [address] (ABNORMAL) LIPID PANEL AND DIRECT LDL(IF NEEDED) (04/28/2010 8:57 AM CDT) [facility] gist Method Time Signature Cholesterol 241 (H) 0 - 199 [facility] mg/dl Triglyceride 202 (H) 0 - 149 [facility] mg/dl HDL 44 >40 mg/dl [facility] LDL, Calc. 157 (H) 0 - 129 [facility] mg/dl Hours Fasting 15 hours [facility] Specimen Anatomical Collection Method Collection Time Receive d Time (Source) Location / / Volume Laterality 04/28/2010 8:57 AM 201 0 9:03 CDT AM CDT Alisha Kimball MD LAB_1 Performing Organization Address City/State/ZIP Code Phon e Number [facility] [phone] [facility] [address] [address] documented in this encounter Visit [...] unspecified documented in this encounter Care Teams Key Carrier Relationship Specialty Start Date End Date Alisha Kimball MD PCP - General 07/08/05 [address] [place], [place] [id number] documented as of this encounter
--- OUTSIDE RECORDS SUMMARY | 2022-04-13 07:40 | XMS_ITS | Encounter Summary ---
:1955 Author Organization [facility] Address [address] [facility] [place] [address] Care Team Providers Name Role Phone Alisha Kimball MD Primary Care Provider Reason for Visit Reason Onset Date Comments QUESTIONS, GENERAL 11/04/2011 Encounter Details Date Type Department Care Team Description 11/04/2011 Telephone [facility] maxi Alisha Kimball MD QUESTIONS, GENERAL [address] [place] [address] [place], [place] [phone] (Wo rk) Social History Tobacco Use Types [...] with plan. I sent her to [facility] to schedule with procedure nurse. TOT Ben [...] on filedocumented in this encounter Care Teams Instructor Bridge Relationship Specialty Start Date End Date Alisha Kimball MD PCP - General 07/08/05 [address] [place] [address] documented as of this encounter
--- OUTSIDE RECORDS SUMMARY | 2022-04-13 07:40 | XMS_ITS | Encounter Summary ---
:1955 Author Organization [facility] Address [address] [place] [address] Care Team Providers Name Role Phone Alisha Kimball MD Primary Care Provider Reason for Visit Reason Onset Date Comments CLASS,DIABETES DIABETES EDUCATION 09/29/2010 Encounter Details Date Type Department Care Team Description 09/30/2010 Office Visit [facility] ogram DM w/o complication type [address] II, uncontrolled ([place] [address] Dx) [phone] Social History Tobacco Use Types Packs/Day Years [...] diabetes class series Diabetes -PuttingYourself In The Bus Person's Seat using conversation maps. Incorporating appropriate nutritional [...] documented in this encounter Care Teams Blood Donor Recruiter Relationship Specialty Start Date End Date Alisha Kimball MD PCP - General 07/08/05 [address] [place] [address] documented as of this encounter
--- OUTSIDE RECORDS SUMMARY | 2022-04-13 07:40 | XMS_ITS | Encounter Summary ---
:1955 Author Organization [facility] Address [address] [place] [address] Care Team Providers Name Role Phone Alisha Kimball MD Primary Care Provider Encounter Details Date Type Department Care Team Description 09/21/2011 Imaging [facility] ury Mammography [address] [place] [address] Social History Tobacco Use Types [...] on filedocumented in this encounter Care Teams Creative Services Director Relationship Specialty Start Date End Date Alisha Kimball MD PCP - General 07/08/05 [address] [place] [address] documented as of this encounter
--- OUTSIDE RECORDS SUMMARY | 2022-04-13 07:40 | XMS_ITS | Encounter Summary ---
:1955 Author Organization [facility] Address [address] [place] [address] Care Team Providers Name Role Phone Alisha Kimball MD Primary Care Provider Encounter Details Date Type Department Care Team Description 05/14/2010 Orders Only [facility] Hyperglycemia [address] [place] [address] Social History Tobacco Use Types [...] 05/14/2010 7:35 AM Hyperglycemia Results for this CHEMOTHERAPIST procedure are i n the results section. GLUCOSE - FASTING > Routine 05/14/2010 7:35 AM Hyperglycemia R esults for this 8 HRS FASTING CHEMOTHERAPIST procedure are in the results section. documented in this encounter Results (ABNORMAL) GLUCOSE - FASTING > 8 HRS FASTING (V77.1) (05/14/2010 7:35 AM CHEMOTHERAPIST) [facility] Method Time Signature Glucose 106 (H) 70 - 100 [facility] mg/dl Hours Fasting 12 hours [facility] Specimen Anatomical Collection Method Collection Time Receive d Time (Source) Location / / Volume Laterality 05/14/2010 7:35 AM 0 7:46 CHEMOTHERAPIST AM CHEMOTHERAPIST Alisha Kimball MD LAB_1 Performing Organization Address City/State/ZIP Code Phon e Number [facility] [phone] [facility] [address] [phone] (ABNORMAL) HGB A1C (05/14/2010 7:35 AM CHEMOTHERAPIST) athologist Signature Hgb A1c 7.4 (H) 4.3 - 6.1 % [facility] Comment: The usual A1C goal for people with diabe jaci, age 18-75, is < 7.0%. Physicians may recommend a higher or lo wer goal for specific individuals. Specimen Anatomical Collection Method Collection Time Receive d Time (Source) Location / / Volume Laterality 05/14/2010 7:35 AM 0 7:46 CHEMOTHERAPIST AM CHEMOTHERAPIST Alisha Kimball MD LAB_1 Performing Organization Address City/State/ZIP Code Phon e Number [facility] [phone] [phone] documented in this encounter Visit Diagnoses Diagnosis Hyperglycemia Other abnormal glucose documented in this encounter Care Teams Marketing Intern Relationship Specialty Start Date End Date Alisha Kimball MD PCP - General 07/08/05 [address] [place] [address] documented as of this encounter
--- OUTSIDE RECORDS SUMMARY | 2022-04-13 07:40 | XMS_ITS | Encounter Summary ---
:1955 Author Organization [facility] Address [address] [place] [address] Care Team Providers Name Role Phone Alisha Kimball MD Primary Care Provider Reason for Visit Reason Comments ROUTINE HEALTH MAINTENANCE no pap today/ breast exam Encounter Details Date Type Department Care Team Description 10/26/2011 Office Visit [facility] Alisha Kimball, [facility] (Primary Dx); Practice MD Diabetes mellitus type II ([facility]); [address] Screening breast examination; [place] [address] [place] [address] Hypertension [phone] Social History Tobacco Use Types Packs/Day Years Used Date Smoking Tobacco: Never Alcohol Use Standard Drinks/Week Comments No 0 (1 standard drink = 0.6 oz pure alcoho l) Sex Assigned at Date Recorded Not on file documented as of this encounter Last Filed Vital Signs Vital Sign Reading Time Taken Comments Blood Pressure 158/102 10/26/2011 3:59 PM CDT Pulse 60 10/26/2011 3:59 PM CDT Temperature 36.6 ??C (97.9 ??F) 10/26/2011 3:59 PM CDT Respiratory Rate - - Oxygen Saturation - - Inhaled Oxygen Concentration - - Weight 86.2 kg (190 lb) 10/26/2011 3:59 PM CDT Height - - Body Mass Index 32.36 04/28/2010 8:10 AM CDT documented in this encounter Patient Instructions Patient InstructionsAlisha Kimball MD - 10/26/2011 4:26 PM CDT For blood pressure: Start amlodipine 5 mg nightly. Please call with problems. If you are doing well, please have your blood pressure checked in about 2 weeks with me or the adultnurse. For diabetes: Please check morning and 2-hour post-meal glucoses for about 2 weeks and call with numbers. Understanding Optimal Diabetes Care Goals The five optimal diabetes care goals shown below were designed to measure how well your diabetes is being managed. When all five goals are achieved, your risk for health problems associated with diabetes is greatly reduced. The [facility] Team is available to help you reach your goals. Diabetes is a disease requiring daily attention. For this reason, you are the most important person of the [facility] Team. Name: Loc Velasco Guideline Goal What it is and why it is important Previous Result/Current Result A1c less than 8.0% Measures how well you have controlled your blood glucose in the last 12-16 weeks HGB A1C (%) Date Value 10/24/2011 8.1* 05/14/2010 7.4* Blood Pressure 139/89 or lower Controlling your blood pressure can help prevent complications, such as heart disease, stroke, kidney disease and eye disease BP Readings from Last 1 Encounters: 10/26/11 158/102 LDL 99 or lower Measures the level of ???bad?? cholesterol. Keeping this low will help prevent heart disease LDL, CALC. (mg/dl) Date Value 04/28/2010 157* Tobacco use Tobacco Free Tobacco use and diabetes increase your risk for heart disease and together your risk significantly increases reports that she has never smoked. She does not have any smokeless tobacco history on file. Aspirin Daily if advised Reduces the tendency [...] a list of these classes, please visit [email or web address] and click on the Health and Wellness tab or call the appointment center at [phone] to register for a class. Depending on your insurance coverage, a fee to participate in certain classes may apply documented in this encounter Progress Notes Alisha Kimball MD - 10/26/2011 4:21 PM CDT S: Loc Velasco is a 56 yr old female [id number] seen today for a physical exam. She is status post hysterectomy and unilateral oophorectomy for benign disease. Remote H/O abnormal pap. Last cholesterol and mammogram reviewed. Last FBG 106 05/2010. Colon cancer screening up to date with [...] Smoking status: Never Smoker ??? Smokeless tobacco: Not on file ??? Alcohol Use: Not on file Past Medical History Diagnosis Date ??? Normal delivery X 3 ??? Diverticulosis of colon ??? Diabetes mellitus type II 05/14/2010 Past Surgical History Procedure Date ??? Hysterectomy 1998 menorrhagia ??? Other - procedures 1999 [place] for stress incontinence Allergies Allergen Reactions ??? Sulfa Drugs Redness and Swelling Current Outpatient Prescriptions Medication Sig ??? Aspirin (ASPIR-81 OR) None Entered ??? aspirin (ASPIRIN, ENTERIC-COATED) 81 MG enteric coated tablet Take 81 mg by mouth daily. ??? blood glucose (ACCU-CHEK STACEY) strip two times a day. ??? Coenzyme Q10 (COQ-10 OR) ??? Cyanocobalamin (VITAMIN B12 OR) ??? docusate sodium (COLACE) 100 MG capsule None Entered ??? GLUCOSAMINE SULFATE OR ??? lancets (ACCU-CHEK MULTICLIX LANCETS) two times a day. ??? MULTIPLE VITAMIN OR None Entered ??? [place]-3 Fatty Acids (FISH OIL OR) ??? 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 Otherwise as above. ROS: A comprehensive review of systems was done today and was significant for no concerns. We talkedabout her recent labs. HGB A1C (%) Date Value 10/24/2011 8.1* Ran out of test strips and not checking glucoses lately, but generally fasting glucoses<140. Doesnot recall checking glucoses after eating. Unfortunately, an LDL was not done with her last labs. Thinks she is doing well with her diet. Walking about 3 miles per day. Prefers not to take medication for her diabetes. Notes that her blood pressure has been high at the dentist's office and her dentist will not perform her root canal until her hypertension is addressed, so she would like to go back on medication for this. Was on lisinopril in the past and had a cough. Otherwise a comprehensive review of systems is negative. PE Please see the nurse's note for vitals signs. General: NAD Skin: no rash or worrisome lesions. HEENT: PERRL/EOMI. TM's/canals normal. OP clear. Neck: [...] 1. RHM. Please see today's orders. 2. Type II diabetes mellitus. Not at goal. See the patient instructions. Discussed treatment options. If fasting glucoses are as good as she recalls, could consider Januvia monotherapy if her postprandial glucoses are the problem. If both are high, would recommend metformin to start, although she may need a second oral agent. 3. Hypertension. See the patient instructions. 4. Probable hypercholesterolemia. LDL with next labs, since this could not be added. Alisha Kimball MD documented in this encounter Plan of Treatment Not on filedocumented as of this encounter Visit Diagnoses Diagnosis Preventative health care - Primary Routine general medical examination at a health care facility Diabetes mellitus type II ([facility]) Type II or unspecified type diabetes dinora litus without mention of complication, not stated as uncontrolled Screening breast examination Other screening breast examination Hypertension ([facility]) Unspecified essential hypertension documented in this encounter Care Teams Printed Circuit Boards Router Relationship Specialty Start Date End Date Alisha Kimball MD PCP - General 07/08/05 [address] [place] [address] documented as of this encounter
--- OUTSIDE RECORDS SUMMARY | 2022-04-13 07:40 | XMS_ITS | Encounter Summary ---
:1955 Author Organization [facility] Address [address] [place] [address] Care Team Providers Name Role Phone Alisha Kimball MD Primary Care Provider Encounter Details Date Type Department Care Team Description 04/28/2010 Imaging [facility] Foot pain [address] [place] [address] Social History Tobacco Use Types [...] limb documented in this encounter Care Teams Bank Accountant Relationship Specialty Start Date End Date Alisha Kimball MD PCP - General 07/08/05 [address] [place] [address] documented as of this encounter
--- OUTSIDE RECORDS SUMMARY | 2022-04-13 07:40 | XMS_ITS | Encounter Summary ---
:1955 Author Organization [facility] Address [address] [address] Care Team Providers Name Role Phone Alisha Kimball MD Primary Care Provider Reason for Referral Specialty Diagnoses / Procedures Referred By Contact Refer red To Contact Alexis Ponce PA -C [address], [place] [address] Referral ID Status Reason Start Date Expiration Date Visits Requ ested Visits Authorized Scheduling Instructions [facility] an [facility] was advised and you have not been contacted to schedule that appo intment within 3 business days, please call [phone] for assistance. Reason for Visit Reason Comments ANKLE PAIN Lt ankle into foot pain x 2 weeks swollen by end of day may have stepped off stairs wrong. Unable to sleep due to pain Encounter Details Date Type Department Care Team Description 03/29/2008 Office Visit [facility] Alexis Ponce Foot Pa in (Primary Dx) Practice EMILY [address] [address] [place], [place] [phone] [id number] Social History Tobacco Use Types Packs/Day Years [...] Body Mass Index 30.11 08/09/2007 4:16 PM SEWER documented in this encounter Patient Instructions Patient [...] couple times daily. Follow up with the slasher runner. documented in this encounter Progress Notes Alexis [...] limb documented in this encounter Care Teams Nuclear Unit Operator Relationship Specialty Start Date End Date Alisha Kimball MD PCP - General 07/08/05 [address] [place] [address] documented as of this encounter
--- OUTSIDE RECORDS SUMMARY | 2022-04-13 07:40 | XMS_ITS | Encounter Summary ---
:1955 Author Organization [employer] Address [address], [place] [address] Care Team Providers Name Role Phone Alisha Kimball MD Primary Care Provider Reason for Visit Reason Comments ROUTINE HEALTH MAINTENANCE eyes are burning/ ears itch y for a while/ refill bp med/ check varicose veins are itc hy/ pap/ breast exam Encounter Details Date Type Department Care Team Description 10/24/2012 Office Visit [facility] Alisha Kimball, [facility] (Primary Dx); Practice MD Screening breast examination; [address] Breast cancer screening; [place] [address] [place] [address] Diabetes mellitus type II (HRC); [phone] Hypertension; (Work) Dry eyes; Varicose veins of [...] associated with diabetes is greatly reduced. The [facility] Diabetes Team is available to help you reach your goals. Diabetes is a disease requiring daily attention. For this reason, you are the most important person of the [email or web address] Diabetes Team. Name: Loc Velasco Guideline Goal [...] a list of these classes, please visit [email or web address] and click on the Health and Wellness tab or call the appointment center at [phone] to register for a class. Depending on your insurance coverage, a fee to participate in certain classes may apply Dry Eyes: After Your Visit Your Care Instructions Dry eyes may feel dry, hot, kyel, gritty, or even teary. Sometimes a dry [...] your eyes. Do not rub your eyes. Avtz-xfe-fdkgupd artificial tears may help you when you [...] Where can you learn more? Go to [facility] and enter D231 in the search box. Last Revised: September 19, 2010 ?? [id number] [employer]. documented in this encounter Progress Notes [...] The patient is and works for the [employer]. Otherwise as above. ROS: A comprehensive review of systems was done today and was significant for a few concerns. 1. Not checking glucoses. Has lost some weight. 2. Bilateral itchy, watery, red eyes for months. No eye pain or vision changes. No discharge. No history of allergic rhinitis. Using Visine kzjh-inh-zhrflhn and seems to help, but needs to [...] Symptomatic varicose veins. She will schedule with [facility]. Phone number supplied. Alisha [...] Alisha Kimball MD LAB_1 Performing Organization Address [facility] e Number [facility] [employer] [phone] [phone] CREATININE / GFR (10/24/2012 9:45 AM CDT) Analysis Performed At [facility] logis Time Signature Creatinine 0.68 0.52 - [facility] 1.04 mg/dl GFR, Estimated >60.0 >60 [facility] ml/min/1.7 3m2 GFR, Est., If >60.0 >60 [facility] Black ml/min/1.7 3m2 Specimen Anatomical Collection Method Collection Time Receive d Time (Source) Location / / Volume Laterality 10/24/2012 9:45 AM 3 9:52 CDT AM CDT Alisha Kimball MD LAB_1 Performing Organization Address [facility] Phon e Number [facility] [employer] [phone] [phone] (ABNORMAL) ALT (SGPT) (10/24/2012 9:45 AM CDT) athologist Signature ALT (SGPT) 72 (H) 0 - 69 U/L [facility] Specimen Anatomical Collection Method Collection Time Receive d Time (Source) Location / / Volume Laterality 10/24/2012 9:45 AM 3 9:52 CDT AM CDT Alisha Kimball MD LAB_1 Performing Organization Address [facility] Phon e Number [employer] [phone] [phone] (ABNORMAL) LIPID PANEL AND DIRECT LDL(IF NEEDED) (10/24/2012 9:45 AM CDT) [facility] Method Time Signature Cholesterol 242 (H) 0 - 199 [facility] mg/dl Triglyceride 242 (H) 0 - 149 [facility] mg/dl HDL 43 >40 mg/dl [facility] LDL, Calc. 151 (H) 0 - 129 [facility] mg/dl Non HDL Chol, 199 mg/dl [facility] Calc Hours Fasting 14 hours [facility] Specimen Anatomical Collection Method Collection Time Receive d Time (Source) Location / / Volume Laterality 10/24/2012 9:45 AM 3 9:52 CDT AM CDT Alisha Kimball MD LAB_1 Performing Organization Address [facility] Phon e Number [employer] [phone] [phone] documented in this encounter Visit Diagnoses Diagnosis [...] complications documented in this encounter Care Teams Seed Sorter Relationship Specialty Start Date End Date Alisha Kimball MD PCP - General 07/08/05 [address] [place] [address] documented as of this encounter
--- OUTSIDE RECORDS SUMMARY | 2022-04-13 07:40 | XMS_ITS | Encounter Summary ---
:1955 Author Organization [facility] Address [address], [place] [address] Care Team Providers Name Role Phone Alisha Kimball MD Primary Care Provider Encounter Details Date Type Department Care Team Description 12/13/2007 Office Visit [facility] Kiah August H, OTR/L Mallet Finger (Primary [address] Dx) [address] [place] [phone] Social History Tobacco Use Types Packs/Day Years Used Date Smoking Tobacco: Never Alcohol Use Standard Drinks/Week Comments Not Asked 0 (1 standard drink = 0.6 oz pure alcoho l) Sex Assigned at Date Recorded Not on file documented as of this encounter Progress Notes Kiah August H - 12/13/2007 9:27 AM CDT HAND OCCUPATIONAL THERAPY DAILY/PROGRESS NOTE 12/13/2007 Patient Name: Loc Velasco [id number] Payor: SELF [id number] Plan: SELF INSURED Product Type: *No Product [...] Active ROM, Passive ROM, Strengthening and Check desktop specialist/3pt. Pinch strength. Will continue to see pt. 1x/week for next 6 weeks. MINUTES SEEN: 30 Treatment Charges: Physical Agent Modalities: Fluidotherapy / whirlpool Treatment: Therapeutic Exercises: Quantity: 1 Kiah Beal,OTR/L documented in this encounter Plan of Treatment Not on filedocumented as of this encounter Visit Diagnoses Diagnosis Mallet finger - Primary documented in this encounter Care Teams Pipe Supervisor Relationship Specialty Start Date End Date Alisha Kimball MD PCP - General 07/08/05 [address] [place] [address] documented as of this encounter
--- OUTSIDE RECORDS SUMMARY | 2022-04-13 07:40 | XMS_ITS | Encounter Summary ---
:1955 Author Organization [facility] Address [address] [place] [address] Care Team Providers Name Role Phone Alisha Kimball MD Primary Care Provider Encounter Details Date Type Department Care Team Description 07/21/2010 Imaging [facility] cancer screening Mammography [address] [place] [address] Social History Tobacco Use Types [...] Associated Diagnosis Comme nts MM MAMMOGRAM Routine 07/21/2010 9:27 AM Breast cancer Results for this SCREENING BILAT W CUTTER ALUMINUM SHEET screening procedure are in CAD the results section. documented in this encounter Results MAMMOGRAM SCREENING BILATERAL (07/21/2010 9:27 AM CUTTER ALUMINUM SHEET) Anatomical Region Laterality Modality Breast Bilateral Mammography Specimen (Source) Anatomical Location Collection Method / Collectio n Time Received Time / Laterality Volume Narrative 07/22/2010 2:03 PM CUTTER ALUMINUM SHEET BILATERAL FULL FIELD DIGITAL SCREENING MAMMOGRAM Performed [...] in this encounter Visit Diagnoses Diagnosis Breast cancer screening Breast screening, unspecified documented in this encounter Care Teams Electronic Warfare Technical Relationship Specialty Start Date End Date Alisha Kimball MD PCP - General 07/08/05 [address] [place] [address] documented as of this encounter
--- OUTSIDE RECORDS SUMMARY | 2022-04-13 07:41 | XMS_ITS | Encounter Summary ---
:1955 Author Organization [facility] Address [address] [place] [address] Care Team Providers Name Role Phone Alisha [...] filedocumented in this encounter Care Teams Creative Director Relationship Specialty Start Date End Date Alisha Kimball MD PCP - General 07/08/[address] [place], [place] [id number] documented as of this encounter
--- OUTSIDE RECORDS SUMMARY | 2022-04-13 07:41 | XMS_ITS | Encounter Summary ---
:1955 Author Organization [facility] Address [address] [place] [address] Care Team Providers Name Role Phone Alisha Kimball MD Primary Care Provider Encounter Details Date Type Department Care Team Description 01/26/2006 Orders Only [facility] MD [employer] Contact Bill [address] [place] [address] Mailstop [id number] [phone] (Wo rk) Social History Tobacco Use Types [...] on filedocumented in this encounter Care Teams Park Guard Relationship Specialty Start Date End Date Alisha Kimball MD PCP - General 07/08/[address] [place] [address] documented as of this encounter
--- OUTSIDE RECORDS SUMMARY | 2022-04-13 07:41 | XMS_ITS | Encounter Summary ---
:1955 Author Organization [facility] Address [address] [place] [address] Care Team Providers Name Role Phone Alisha [...] on filedocumented in this encounter Care Teams Running Rigger Relationship Specialty Start Date End Date Alisha Kimball MD PCP - General 07/08/[address] [place], [place] [id number] documented as of this encounter
--- OUTSIDE RECORDS SUMMARY | 2022-04-13 07:41 | XMS_ITS | Encounter Summary ---
:1955 Author Organization [facility] Address [address] [place] [address] Care Team Providers Name Role Phone Alisha Kimball MD Primary Care Provider Encounter Details Date Type Department Care Team Description 11/25/2005 Telephone [facility] Mari Pickens MD [address] [facility] [address] [facility] [place] [address] [address] [place], [place] [address] (Wo rk) Social History [...] on filedocumented in this encounter Care Teams Leave Coordinator Relationship Specialty Start Date End Date Alisha Kimball MD PCP - General 07/08/[address] [place] [address] documented as of this encounter
--- OUTSIDE RECORDS SUMMARY | 2022-04-13 07:41 | XMS_ITS | Encounter Summary ---
:1955 Author Organization [facility] Address [address], [place] [address] Care Team Providers Name Role Phone Alisha Kimball MD Primary Care Provider Reason for Referral Specialty Diagnoses / Procedures Referred By Contact Refer red To Contact Jigar Mcgarry MD [address] [place] [address] Referral ID Status Reason Start Date Expiration Date Visits Requ ested Visits Authorized TIENT CODER Reason for Visit Reason Comments NEW MEMBER VISIT eval crush injury to her lef t long finger referred by Dr. Alisha Kimball DOI 06/02/07 Encounter Details Date Type Department Care Team Description 08/09/2007 Office Visit [facility] Jigar Mcgarry et Finger (Primary [address] Plastic & Hand VMD Dx) Surgery [address] [place] [address] [place] [phone] Social History Tobacco Use Types Packs/Day Years Used Date Smoking Tobacco: Never Alcohol Use Standard Drinks/Week Comments Not Asked 0 (1 standard drink = 0.6 oz pure alcoho l) Sex Assigned at Date Recorded Not on file documented as of this encounter Last Filed Vital Signs Vital Sign Reading Time Taken Comments Blood Pressure 121/84 08/09/2007 4:16 PM INPATIENT CODER Pulse 73 08/09/2007 4:16 PM INPATIENT CODER Temperature 36.7 ??C (98.1 ??F) 08/09/2007 4:16 PM INPATIENT CODER Respiratory Rate 16 08/09/2007 4:16 PM INPATIENT CODER Oxygen Saturation - - Inhaled Oxygen Concentration - - Weight 73.5 kg (162 lb) 08/09/2007 4:16 PM INPATIENT CODER Height 162.6 cm (5' 4) 08/09/2007 4:16 PM INPATIENT CODER Body Mass Index 27.81 08/09/2007 4:16 PM INPATIENT CODER documented in this encounter Patient Instructions Patient InstructionsJigar Mcgarry V - 08/09/2007 4:45 PM CST Hand Therapy CATIA. Return to clinic in 8 weeks. Jigar Mcgarry MD Plastic and Hand Surgery TIENT CODER documented in this encounter Progress Notes Jigar Mcgarry V - 08/09/2007 12:00 AM INPATIENT CODER Loc Velasco is a 52 -year-old patient [...] weeks. P cc: MD Alisha Matos MD TIENT CODER documented in this encounter Plan of Treatment Not on filedocumented as of this encounter Visit Diagnoses Diagnosis Mallet finger - Primary documented in this encounter Care Teams Exhibit Preparator Relationship Specialty Start Date End Date Alisha Kimball MD PCP - General 07/08/05 [address] [place] [address] documented as of this encounter
--- OUTSIDE RECORDS SUMMARY | 2022-04-13 07:41 | XMS_ITS | Encounter Summary ---
:1955 Author Organization [facility] Address [address], [place] [address] Care Team Providers Name Role Phone Alisha Kimball MD Primary Care Provider Encounter Details Date Type Department Care Team Description 11/27/2005 Office Visit [facility] Mari Pickens MD [facility] [address] [place], [place] [address] [address] [place], [place] [address] (Wo rk) Social History [...] left leg. She is traveling out to [place] to attend her son's graduation within the [...] icus documented in this encounter Care Teams Separations Scientist Relationship Specialty Start Date End Date Alisha Kimball MD PCP - General 07/08/05 [address] [place] [address] documented as of this encounter
--- OUTSIDE RECORDS SUMMARY | 2022-04-13 07:41 | XMS_ITS | Encounter Summary ---
:1955 Author Organization [facility] Address [address], [place] [address] Care Team Providers Name Role Phone Alisha Kimball MD Primary Care Provider Encounter Details Date Type Department Care Team Description 08/17/2007 [facility] Arlene Hensley Ma llet Finger (Primary [address] OTR/L Dx) 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 Loc is to wear this splint: multimedia assistant Proper fit assessed by therapist. Patient trained [...] to allow future independence with self cares. HANDLE AND VENT MACHINE OPERATOR GOALS: to be completed in 12 [...] hand therapy evaluation can be directed to [phone]. MINUTES SEEN: 50 NEXT TREATMENT: Remold splints into increased extension. Review Home Exercise Program. Determine range of motion gains. Assess frequency needs. Nicolasa Hensley, OTR, CHT, MLD Treatment Charges: Evaluations: O.T. Evaluation Qty: 1 Treatment: Selfcare Activities: Quantity: 1 Orthotic/Prosthetic (mgmt/training/assess/fit) Quantity: 1 Custom Splints: Finger splint - Quantity: 1 ING TEACHER documented in this encounter Plan of Treatment Not on filedocumented as of this encounter Visit Diagnoses Diagnosis Mallet finger - Primary documented in this encounter Care Teams Warehouse Packaging Supervisor Relationship Specialty Start Date End Date Alisha Kimball MD PCP - General 07/08/[address] [place] [address] documented as of this encounter
--- OUTSIDE RECORDS SUMMARY | 2022-04-13 07:41 | XMS_ITS | Encounter Summary ---
:1955 Author Organization [facility] Address [address] [place] [address] Care Team Providers Name Role Phone Alisha Kimball MD Primary Care Provider Encounter Details Date Type Department Care Team Description 01/26/2006 Correspondence [facility] Priyank Ferraro Colonoscopy Gastroenterology MD Malik Informed Consent [address] [address] RADIO JUAQUIN [address] [address] [address] [place], [place] [phone] Social History Tobacco Use Types Packs/Day Years [...] on filedocumented in this encounter Care Teams Staff Sonographer Relationship Specialty Start Date End Date Alisha Kimball MD PCP - General 07/08/[address] [place], [place] [phone] documented as of this encounter
--- OUTSIDE RECORDS SUMMARY | 2022-04-13 07:41 | XMS_ITS | Encounter Summary ---
:1955 Author Organization [facility] Address [address] [place] [address] Care Team Providers Name Role Phone Alisha Kimball MD Primary Care Provider Encounter Details Date Type Department Care Team Description 01/01/2006 Notes/Orders [employer] Linda Roberts, Gastroenterology AUDIOPROSTHOLOGIST[address] [phone] Social History Tobacco Use Types Packs/Day Years Used Date Smoking Tobacco: Never Alcohol Use Standard Drinks/Week Comments Not Asked 0 (1 standard drink = 0.6 oz pure alcoho l) Sex Assigned at Date Recorded Not on file documented as of this encounter Plan of Treatment Not on filedocumented as of this encounter Visit Diagnoses Not on filedocumented in this encounter Care Teams Dispatcher Service Relationship Specialty Start Date End Date Alisha Kimball MD PCP - General 07/08/[address] [place], [place] [phone] documented as of this encounter
--- OUTSIDE RECORDS SUMMARY | 2022-04-13 07:41 | XMS_ITS | Encounter Summary ---
:1955 Author Organization [facility] Address [address] [place] [address] Care Team Providers Name Role Phone Alisha Kimball MD Primary Care Provider Encounter Details Date Type Department Care Team Description 08/16/2007 Orders Only [facility] Mammogram I, Sp O ther Screening Mammography Mammogram (Primary [address] [place] [address] Social History Tobacco Use Types Packs/Day Years Used Date Smoking Tobacco: Never Alcohol Use Standard Drinks/Week Comments Not Asked 0 (1 standard drink = 0.6 oz pure alcoho l) Sex Assigned at Date Recorded Not on file documented as of this encounter Procedure Notes Brittney Steen - 08/16/2007 12:00 AM CSTAssociated Order(s): MAMMOGRAM, SCREENING (DIGITAL) EXAMINATION: BILATERAL DIGITAL MAMMOGRAM 08/16/2007: ACR BIRADS CATEGORY 1 - NEGATIVE MAMMOGRAM. Exam reviewed with computer aided detection (CAD) system for a second read. COMPARISON: 01/08/2006 BREAST COMPOSITION: Scattered fibroglandular. No change. No mammographic evidence for malignancy. RECOMMENDATIONS: Normal interval F/U. Brittney Steen MD D: cc: Radiology SP ER WASHER documented in this encounter Plan of Treatment Not on filedocumented as of this encounter Procedures Procedure Name Priority Date/Time Associated Diagnosis Comme nts SCREENING MAMMO Routine 08/16/2007 12:00 AM Other Screening Re sults for this DIRECT DIGITAL IMG FILTER WASHER Mammogram procedure are in [facility] the results section. documented in this encounter Results MAMMOGRAM, SCREENING (DIGITAL) (08/16/2007 12:00 AM FILTER WASHER) Anatomical Region Laterality Modality Breast Other Transcriptions Brittney Steen - 08/16/2007 12:[address] EXAMINATION: BILATERAL DIGITAL MAMMOGRAM 08/16/2007: ACR BIRADS CATEGORY 1 - NEGATIVE MAMMOG WAI. Exam reviewed with computer aided detec tion (CAD) system for a second read. COMPARISON: 01/08/2006 BREAST COMPOSITION: Scattered fibroglan dular. No change. No mammographic evidence for malignancy. RECOMMENDATIONS: Normal interval F/U. Brittney Steen MD D: cc: Radiology SP Alisha Kimball MD RAD_BI documented in this encounter Visit Diagnoses Diagnosis Other screening mammogram - Primary documented in this encounter Care Teams Sash Sticker Relationship Specialty Start Date End Date Alisha Kimball MD PCP - General 07/08/05 [address] [place] [address] documented as of this encounter
--- OUTSIDE RECORDS SUMMARY | 2022-04-13 07:41 | XMS_ITS | Encounter Summary ---
:1955 Author Organization [facility] Address [address] [place] [address] Care Team Providers Name Role Phone Carroll Kimball MD Primary Care Provider Reason for Visit Reason Comments MOLE she is fasting CONSTIPATION noticed a buldge in back Encounter Details Date Type Department Care Team Description 09/09/2006 Office Visit [facility] Carroll Kimball, Skin Les ion (Primary Dx); Practice Vaccin for DTP; [address] Screening Cholesterol Level; [place] [address] [address] Screening for Diabetes Mellitus; [phone] [place], [place] Frequent Urinat ion; [address] Cystocele; [phone] Constipation; (Work) Hypercholesteremia Social History Tobacco Use Types Packs/Day Years Used Date Smoking Tobacco: Never Alcohol Use Standard Drinks/Week Comments Not Asked 0 (1 standard drink = 0.6 oz pure alcoho l) Sex Assigned at Date Recorded Not on file documented as of this encounter Last Filed Vital Signs Vital Sign Reading Time Taken Comments Blood Pressure 132/78 09/09/2006 2:20 PM SCRUMMASTER Pulse 82 09/09/2006 2:20 PM SCRUMMASTER Temperature 37.1 ??C (98.7 ??F) 09/09/2006 2:20 PM SCRUMMASTER Respiratory Rate 26 09/09/2006 2:20 PM SCRUMMASTER Oxygen Saturation - - Inhaled Oxygen Concentration - - Weight 88.1 kg (194 lb 3.2 oz) 09/09/2006 2:20 PM SCRUMMASTER Height - - Body Mass Index - - documented in this encounter Progress Notes Carroll Kimball - 09/11/2006 9:44 PM SCRUMMASTER Addended by: CARROLL KIMBALL on: 09/11/2006 9:44:12 PM Modules accepted: Orders MMASTER Carroll Kimball - 09/09/2006 3:23 PM CST This office note has been dictated. Carroll Kimball MD MMASTER Carroll Kimball - 09/09/2006 12:00 AM SCRUMMASTER SUBJECTIVE: Loc is seen today with several [...] to help. She will sometimes use an yhyg-yom-fkxxvhd stool softener. She's not sure if that [...] See orders. Results by mail. A cc: MMASTER documented in this encounter Plan of Treatment Not on filedocumented as of this encounter Procedures Procedure Name Priority Date/Time Associated Diagnosis Comme nts BASIC METABOLIC Routine 09/09/2006 3:39 PM Frequent Urination Results for this PANEL SCRUMMASTER procedure are i n the results section. UA MICRO IF Routine 09/09/2006 3:39 PM Frequent Urination Res ults for this SCRUMMASTER procedure are i n the results section. LIPID PANEL, FAST > Routine 09/09/2006 3:39 PM Screening Re sults for this 12 HOUR SCRUMMASTER Cholesterol Level procedure are in the results section. URINE CULTURE Routine 09/09/2006 3:39 PM Frequent Urination Re sults for this SCRUMMASTER procedure are i n the results section. UA MICRO Routine 09/09/2006 3:39 PM Results f or this SCRUMMASTER procedure are i n the results section. documented in this encounter Results UA MICRO (09/09/2006 3:39 PM SCRUMMASTER) [facility] Method Time Signature RBC'S 0-3 0 - 3 [facility] /hpf WBC'S 3-5 0 - 5 [facility] /hpf Epith, Many /hpf [facility] Squamous Bact Occ [facility] Casts 0 /lpf [facility] Other Mod Mucous [facility] Specimen Anatomical Collection Method Collection Time Receive d Time (Source) Location / / Volume Laterality 09/09/2006 3:39 PM 7 3:40 SCRUMMASTER PM SCRUMMASTER Carroll Kimball MD LAB_1 Performing Organization Address [facility]/ZIP [facility] Phon e Number [employer] [phone] [facility] [address] [place] [phone] URINE CULTURE (09/09/2006 3:39 PM SCRUMMASTER) Component Value Ref Test Analysis Performed At [facility] Range Method Time Signature Specimen Urine [facility] Description Midstream Special Unspecified [facility] Requests Culture No Growth [facility] After 1 Day Report Status Final [id number] [facility] Specimen Anatomical Collection Method Collection Time Receive d Time (Source) Location / / Volume Laterality 09/09/2006 3:39 PM 7 3:40 SCRUMMASTER PM SCRUMMASTER Carroll Kimball MD LAB_1 Performing Organization Address City/[facility] Phon e Number [employer] [phone] [facility] [address] [place] [phone] (ABNORMAL) UA MICRO IF (09/09/2006 3:39 PM SCRUMMASTER) [facility] Method Time Signature Appr Yellow [facility] Appr [...] Volume Laterality 09/09/2006 3:39 PM 7 3:40 SCRUMMASTER PM SCRUMMASTER Carroll Kimball MD LAB_1 Performing Organization Address [facility] Phon e Number [facility] The [facility] [phone] [facility] [address] [place] [phone] BASIC METABOLIC PANEL (09/09/2006 3:39 PM SCRUMMASTER) athologist Signature BUN 20 10 - 26 [...] Volume Laterality 09/09/2006 3:39 PM 7 3:40 SCRUMMASTER PM SCRUMMASTER Carroll Kimball MD LAB_1 Performing Organization Address [facility] Phon e Number [facility] [employer] [phone] [phone] (ABNORMAL) CHOLESTEROL LIPID PANEL FAST >12HR (09/09/2006 3:39 PM SCRUMMASTER) P athologist Signature Cholesterol 205 (H) <200 mg/dl [facility] Comment: Result should not be interpreted without the patient's history of cardiovascular risk factors. Triglyceride 137 <200 mg/dl [facility] HDL 40 >35 mg/dl [facility] LDL, Calc. 138 mg/dl [facility] Hours Fasting 12 hours [facility] Specimen Anatomical Collection Method Collection Time Receive d Time (Source) Location / / Volume Laterality 09/09/2006 3:39 PM 7 3:40 SCRUMMASTER PM SCRUMMASTER Carroll Kimball MD LAB_1 Performing Organization Address City/State/ZIP Code Phon e Number [facility] [phone] [facility] [address] [phone] documented in this encounter Visit Diagnoses Diagnosis Skin lesion - Primary Unspecified disorder of skin and subcuta neous tissue Need for prophylactic vaccination with c ombined yeazlqqdrn-mriwqlk-ckbvuybxn (DTP) vaccine Screening cholesterol level Screening for lipoid disorders Screening for diabetes mellitus Frequent urination Urinary frequency Cystocele Cystocele, midline Constipation Unspecified constipation Hypercholesteremia Pure hypercholesterolemia documented in this encounter Care Teams Flat Hammerer Relationship Specialty Start Date End Date Carroll Kimball MD PCP - General 07/08/05 [address] [place] [address] documented as of this encounter
--- OUTSIDE RECORDS SUMMARY | 2022-04-13 07:41 | XMS_ITS | Encounter Summary ---
:1955 Author Organization [facility] Address [address], [place] [address] Care Team Providers Name Role Phone Alisha Kimball MD Primary Care Provider Reason for Referral Specialty Diagnoses / Procedures Referred By Contact Refer red To Contact Mauro Keyes MD [address] [place] [address] Referral ID Status Reason Start Date Expiration Date Visits Requ ested Visits Authorized OFILMER Reason for Visit Reason Comments Follow-up, NOS finger Encounter Details Date Type Department Care Team Description 08/02/2007 Office Visit [facility] Mauro Keyes (Primary Medicine Carmen Amos MD Dx) [address] [facility]. [address] [place] [address] [place] [address] Social History Tobacco Use Types Packs/Day Years Used Date Smoking Tobacco: Never Alcohol Use Standard Drinks/Week Comments Not Asked 0 (1 standard drink = 0.6 oz pure alcoho l) Sex Assigned at Date Recorded Not on file documented as of this encounter Last Filed Vital Signs Vital Sign Reading Time Taken Comments Blood Pressure 116/62 08/02/2007 2:26 PM MICROFILMER Pulse 76 08/02/2007 2:26 PM MICROFILMER Temperature - - Respiratory Rate 16 08/02/2007 2:26 PM MICROFILMER Oxygen Saturation - - Inhaled Oxygen Concentration - - Weight 73.9 kg (163 lb) 08/02/2007 2:26 PM MICROFILMER Height 165.1 cm (5' 5) 08/02/2007 2:26 PM MICROFILMER Body Mass Index 27.12 08/02/2007 2:26 PM MICROFILMER documented in this encounter Progress Notes Mauro Keyes V - 08/02/2007 3:28 PM CST This office note has been dictated. OFILMER Mauro Keeys V - 08/02/2007 12:00 AM MICROFILMER Ms. Velasco is a 52-year-old lady who [...] hand surgeon for further evaluation. P cc: OFILMER documented in this encounter Plan of Treatment Not on filedocumented as of this encounter Visit Diagnoses Diagnosis Finger pain - Primary Pain in limb documented in this encounter Care Teams Patient Service Specialist Relationship Specialty Start Date End Date Alisha Kimball MD PCP - General 07/08/05 [address] [place] [address] documented as of this encounter
--- OUTSIDE RECORDS SUMMARY | 2022-04-13 07:41 | XMS_ITS | Encounter Summary ---
:1955 Author Organization [facility] Address [address], [place] [address] Care Team Providers Name Role Phone Alisha Kimball MD Primary Care Provider Encounter Details Date Type Department Care Team Description 08/22/2007 Office Visit [facility] Janiya Knowles Mal let Finger (Primary [address] [facility] A, OTR/L Dx) 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 ICD-9-code: 736.1 Date of Onset: 06/02/07 Date of Surgery: not applicable Referring Physician: Jiagr Mcgarry V Order Date(s): 08/09/07 Date of [...] 1 Therapeutic Procedure: Quantity: 1 Janiya Knowles,OTR/L,CHT ERING TEACHER documented in this encounter Plan of Treatment Not on filedocumented as of this encounter Visit Diagnoses Diagnosis Mallet finger - Primary documented in this encounter Care Teams Japanese Professor Relationship Specialty Start Date End Date Alisha Kimball MD PCP - General 07/08/05 [address] [place] [address] documented as of this encounter
--- OUTSIDE RECORDS SUMMARY | 2022-04-13 07:41 | XMS_ITS | Encounter Summary ---
:1955 Author Organization [facility] Address [address] [address] Care Team Providers Name Role Phone Alisha Kimball MD Primary Care Provider Encounter Details Date Type Department Care Team Description 08/31/2007 Office Visit Specialty Center Arlene Hensley Ma llet Finger (Primary [address] [facility] OTR/L Dx) 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 ICD-9-code: 736.1 Date of Onset: 06/02/07 Date of Surgery: not applicable Referring Physician: Jigar Mcgarry V Order Date(s): 08/09/07 Date of initial evaluation/progress note(s): 08/17/2007 Injury: Left Hand Dominance: Right CURRENT HOME PROGRAM : multimedia services coordinator use of mallet splint VISIT NUMBER: 3 out of 3 PAIN: Intensity Level: Current Not rated/10 SUBJECTIVE Patient reports multimedia services coordinator use of splint. Changes splint every two [...] limitations TREATMENT PLAN Pt will continue multimedia services coordinator splinting through . Will reschedule her Dr [...] Quantity: 2 Nicolasa Hensley OTR, CHT, MLD ENT SITTER documented in this encounter Plan of Treatment Not on filedocumented as of this encounter Visit Diagnoses Diagnosis Mallet finger - Primary documented in this encounter Care Teams Manager Requirements Relationship Specialty Start Date End Date Alisha Kimball MD PCP - General 07/08/05 [address] [place] [address] documented as of this encounter
--- OUTSIDE RECORDS SUMMARY | 2022-04-13 07:41 | XMS_ITS | Encounter Summary ---
:1955 Author Organization [facility] Address [address] [place] [address] Care Team Providers Name Role Phone Alisha Kimball MD Primary Care Provider Encounter Details Date Type Department Care Team Description 01/26/2006 Office Visit [facility] BRE Ferraro SCREEN FOR Gastroenterology MD Malik MALIG NEOPLASMS, [address] [place] [address] [facility] [address] [place], [place] [id number] Social History Tobacco Use Types Packs/Day Years [...] Ferraro - 01/26/2006 12:00 AM CDT Malik eFrraro - 01/26/2006 12:00 AM CDT documented in this encounter Plan of Treatment Not on filedocumented as of this encounter Visit Diagnoses Diagnosis Special screening for malignant neoplasm s, colon documented in this encounter Care Teams Office 365 Consultant Relationship Specialty Start Date End Date Alisha Kimball MD PCP - General 07/08/05 [address] [place] [address] documented as of this encounter
--- OUTSIDE RECORDS SUMMARY | 2022-04-13 07:41 | XMS_ITS | Encounter Summary ---
:1955 Author Organization [facility] Address [address] [place] [address] Care Team Providers Name Role Phone Alisha Kimball MD Primary Care Provider Reason for Visit Reason Comments CONSULT prolasp bladder Encounter Details Date Type Department Care Team Description 10/06/2006 Office Visit [facility] Froy Rutherford Vagin al Prolapse and Gynecology (Primary Dx) [address] [place] [address] Social History Tobacco Use Types Packs/Day Years Used Date Smoking Tobacco: Never Alcohol Use Standard Drinks/Week Comments Not Asked 0 (1 standard drink = 0.6 oz pure alcoho l) Sex Assigned at Date Recorded Not on file documented as of this encounter Last Filed Vital Signs Vital Sign Reading Time Taken Comments Blood Pressure 122/72 10/06/2006 9:20 AM CDT Pulse - - Temperature - - Respiratory Rate - - Oxygen Saturation - - Inhaled Oxygen Concentration - - Weight 88.9 kg (196 lb) 10/06/2006 9:20 AM CDT Height - - Body Mass Index - - documented in this encounter Progress Notes Froy Rutherford - 10/06/2006 12:00 AM CDT This 51-year-old patient comes in today because her primary care provider noticed that she had a little bit of a cystocele. She is feeling well. She is not having any symptoms from this. She did have a hysterectomy because of bleeding approximately 10 years ago and at that time also had a bladder repair. She is sexually active and is not having any discomfort. She has no bleeding. She does have one ovary left. Both her mother and grandmother had ovarian cancer and we had a long discussion regarding her risk for ovarian cancer. There is no family history of bowel cancer or breast cancer. The patient does have yearly mammograms. She has had a colonoscopy. She has no urgency incontinence or stress urinary incontinence. On examination she has a mild cystocele. Her vagina is otherwise well supported. I suggested she do Kegel examinations and use Premarin vaginal cream once or twice a week as needed. In addition she requested a hydrocortisone antifungal preparation to use on her vaginal area and this was prescribed for her. She will be seen back on a prn basis. P cc: documented in this encounter Plan of Treatment Not on filedocumented as of this encounter Visit Diagnoses Diagnosis Vaginal prolapse - Primary Unspecified prolapse of vaginal eng[place] documented in this encounter Care Teams Intelligent Systems Engineer Relationship Specialty Start Date End Date Alisha Kimball MD PCP - General 07/08/05 [address] [place] [address] documented as of this encounter
--- OUTSIDE RECORDS SUMMARY | 2022-04-13 07:41 | XMS_ITS | Encounter Summary ---
:1955 Author Organization [facility] Address [address] [facility] [place] [address] Care Team Providers Name Role Phone Alisha Kimball MD Primary Care Provider Reason for Visit Reason Comments INJURY, HAND hit today on door Right Encounter Details Date Type Department Care Team Description 01/12/2007 Office Visit [facility] Francisco Gupta Wrist Injury (Primary Medicine R, Dx) [address] [facility]. [address] [place] [address] [place] [address] [phone] Social History Tobacco Use Types Packs/Day Years [...] wrist documented in this encounter Care Teams Rodeo Rider Relationship Specialty Start Date End Date Alisha Kimball MD PCP - General 07/08/05 [address] [place] [address] documented as of this encounter
--- OUTSIDE RECORDS SUMMARY | 2022-04-13 07:41 | XMS_ITS | Encounter Summary ---
:1955 Author Organization [facility] Address [address] [place] [address] Care Team Providers Name Role Phone Alisha Kimball MD Primary Care Provider Reason for Visit Reason Onset Date Comments Dental Concerns 09/11/2006 Encounter Details Date Type Department Care Team Description 09/11/2006 Telephone Careline Faye Patel RN Dental Concerns [address] [place], [place] [address] Social History Tobacco Use Types [...] dentist at 8am 8:12 AM Vero from [facility] calling to take information and will call back patient. Faye Patel RN ROAD FIRER documented in this encounter Plan of Treatment Not on filedocumented as of this encounter Visit Diagnoses Not on filedocumented in this encounter Care Teams Rubber Calender Helper Relationship Specialty Start Date End Date Alisha Kimball MD PCP - General 07/08/[address] [place] [address] documented as of this encounter
--- OUTSIDE RECORDS SUMMARY | 2022-04-13 07:42 | XMS_ITS | Encounter Summary ---
:1955 Author Organization [facility] Address [address] [place] [address] Care Team Providers Name Role Phone Miky Sultana MD Primary Care Provider Reason for Visit Reason Comments LAB RESULTS Encounter Details Date Type Department Care Team Description 02/26/2005 Telephone [facility] Carroll Steinberg MD LAB RESULTS [address] [facility]. [address] [place] [address] [place], [place] [id number] (Wo rk) Social History Tobacco Use Types [...] back. Veronica Dickens RN >> CARROLL AVALOS [facility] Feb 26, 2005 9:04 AM Called [...] hypertension documented in this encounter Care Teams Service Restorer Emergency Relationship Specialty Start Date End Date Miky Sultana MD PCP - General 09/21/01 07/07/05 [place] [address] documented as of this encounter
--- OUTSIDE RECORDS SUMMARY | 2022-04-13 07:42 | XMS_ITS | Encounter Summary ---
:1955 Author Organization [facility] Address [address] [place] [address] Care Team Providers Name Role Phone Luis Pierce MD Primary Care Provider Unavailable Encounter Details Date Type Department Care Team Description 02/22/2001 Office Visit [facility] Miky Sultana MD [facility] [address] [facility] [address] [place] [address] [place] [address] Social History Tobacco Use Types Packs/Day Years [...] patella documented in this encounter Care Teams Metal Worker Relationship Specialty Start Date End Date Luis Pierce MD PCP - General 05/27/1998 documented as of this encounter
--- OUTSIDE RECORDS SUMMARY | 2022-04-13 07:42 | XMS_ITS | Encounter Summary ---
:1955 Author Organization [facility] Address [address] [place] [address] Care Team Providers Name Role Phone Miky Sultana MD Primary Care Provider Encounter Details Date Type Department Care Team Description 12/01/2002 Office Visit [facility] Juan Daniel, EYE & VISION EXAMINATION; [address] [place], [place]; [place] [address] [place] [phone] [place], [place] [address] Social History Tobacco Use Types Packs/Day Years Used Date Smoking Tobacco: Never Alcohol Use Standard Drinks/Week Comments Not Asked 0 (1 standard drink = 0.6 oz pure alcoho l) Sex Assigned at Date Recorded Not on file documented as of this encounter Progress Notes Dari Frances - 12/01/2002 12:00 AM CDT documented in this encounter Plan of Treatment Not on filedocumented as of this encounter Visit Diagnoses Diagnosis Examination of eyes and vision Myopia Presbyopia documented in this encounter Care Teams Purchasing Contracting Clerk Relationship Specialty Start Date End Date Miky Sultana MD PCP - General 09/21/01 07/07/05 [address] [place] [address] documented as of this encounter
--- OUTSIDE RECORDS SUMMARY | 2022-04-13 07:42 | XMS_ITS | Encounter Summary ---
:1955 Author Organization [facility] Address [address] [address] Care Team Providers Name Role Phone Luis Pierce MD Primary Care Provider Unavailable Encounter Details Date Type Department Care Team Description 11/22/2000 Office Visit [facility] Miky Salinas MD COUGH; [address] [place] [address] [place] [address] [phone] (Wo rk) Social History Tobacco Use Types Packs/Day Years Used Date Smoking Tobacco: Never Assessed Sex Assigned at Date Recorded Not on file documented as of this encounter Progress Notes Miky Sultana - 11/22/2000 12:00 AM CDTS: The patient states that she had a bad cold about five weeks ago. Her symptoms seemed to be improving but now she has had a persistent cough that becomes productive or purulent appearing sputum. She has had no fever or chills. The cough is fairly paroxysmal. She has had no fever. No history of asthma or allergies. She does not smoke. She is allergic to SULFA and is on no current medications. O: Weight is 183 pounds. BP: 150/100. Temperature is 96.9. Ears, nose and throat is negative. Neck - no adenopathy. Chest - a few rhonchi were present at the right base. No rales were noted. Chest x-ray is normal. A: Persistent bronchitis. P: EES 400 mg four times a day x 10 day along with Robitussin DM for nighttime cough. She will follow-up if there is no improvement within ten days. She will also come back in a month or two and recheck on her blood pressure. IN SUMMARY: bronchitis cc: documented in this encounter Procedure Notes Luis Glaser - 11/22/2000 12:00 AM CDTAssociated Order(s): CHEST 2 VIEW (PA/LATERAL) CLINICAL DATA: cough, rhonchi right base. EXAMINATION: IN SUMMARY: chest 11/22/00: Findings: The chest is normal. Luis Glaser M.D. cc: Miky Sultana MD Radiology [place] documented in this encounter Plan of Treatment Not on filedocumented as of this encounter Procedures Procedure Name Priority Date/Time Associated Diagnosis Comme nts RADEX CH 2 VIEWS 11/22/2000 12:00 AM Cough Resu lts for this FRNT&LAT CDT procedure are i n the results section. documented in this encounter Results CHEST 2 VIEW (PA/LATERAL) (11/22/2000 12:00 AM CDT) Anatomical Region Laterality Modality Other Specimen (Source) Anatomical Location Collection Method / Collectio n Time Received Time / Laterality Volume 11/22/2000 Transcriptions Luis Glaser - 11/22/2000 12:00 AM CDTCLINICAL DATA: cough, rhonchi right base. EXAMINATION: IN SUMMARY: chest 11/22/00: Findings: The chest is normal. Luis Glaser M.D. cc: Miky Sultana MD Radiology [place] Miky Sultana MD RAD_1 documented in this encounter Visit Diagnoses Diagnosis Cough Bronchitis, not specified as acute or ch ronic documented in this encounter Care Teams Nickel Operator Relationship Specialty Start Date End Date Luis Pierce MD PCP - General 05/27/1998 documented as of this encounter
--- OUTSIDE RECORDS SUMMARY | 2022-04-13 07:42 | XMS_ITS | Encounter Summary ---
:1955 Author Organization Pending sale to [facility] Address [address] [address] Care Team Providers Name Role Phone Luis Pierce MD Primary Care Provider Unavailable Encounter Details Date Type Department Care Team Description 08/09/2001 Orders Only [facility] Miky Salinas MD [address] [place] [address] [place] [address] (Wo rk) Social History Tobacco Use Types Packs/Day Years Used Date Smoking Tobacco: Never Assessed Sex Assigned at Date Recorded Not on file documented as of this encounter Plan of Treatment Not on filedocumented as of this encounter Visit Diagnoses Not on filedocumented in this encounter Care Teams Head Of Marketing Adometry Relationship Specialty Start Date End Date Luis Pierce MD PCP - General 05/27/1998 documented as of this encounter
--- OUTSIDE RECORDS SUMMARY | 2022-04-13 07:42 | XMS_ITS | Encounter Summary ---
:1955 Author Organization [facility] Address [address] [place] [address] Care Team Providers Name Role Phone Luis Pierce MD Primary Care Provider Unavailable Encounter Details Date Type Department Care Team Description 08/18/2001 Office Visit [facility] Hiram Romero MD CONJUNCTIVITIS NOS [address] [place] [address] [place], [place] [phone] Social History Tobacco Use Types Packs/Day [...] can follow-up. IN SUMMARY: eye symptoms cc: OMER ADVOCACY MANAGER documented in this encounter Plan of Treatment Not on filedocumented as of this encounter Visit Diagnoses Diagnosis Conjunctivitis unspecified Conjunctivitis, unspecified documented in this encounter Care Teams Technical Support Internship Relationship Specialty Start Date End Date Luis Pierce MD PCP - General 05/27/1998 documented as of this encounter
--- OUTSIDE RECORDS SUMMARY | 2022-04-13 07:42 | XMS_ITS | Encounter Summary ---
:1955 Author Organization [facility] Address [address] [place] [address] Care Team Providers Name Role Phone Luis [...] cc: Radiology [place] Full Range I [place] ON TROLL FISHER documented in this encounter Plan of Treatment Not on filedocumented as of this encounter Procedures Procedure Name Priority Date/Time Associated Diagnosis Comme nts RADEX SPI LUMBOSAC 05/03/2000 12:00 AM Re sults for this 2/3 VIEWS SALMON TROLL FISHER procedure are i n the results section. documented in this encounter Results L-SPINE 2-3 VIEWS (05/03/2000 12:00 AM SALMON TROLL FISHER) Anatomical Region Laterality Modality Other Specimen (Source) [...] MD cc: Radiology [place] Full Range I [facility] Full Range Wyuc RAD_1 documented in this encounter Visit Diagnoses Not on filedocumented in this encounter Care Teams Director Statistical Programming Relationship Specialty Start Date End Date Luis Pierce MD PCP - General 05/27/1998 documented as of this encounter
--- OUTSIDE RECORDS SUMMARY | 2022-04-13 07:42 | XMS_ITS | Encounter Summary ---
:1955 Author Organization [facility] Address [address] [place] [address] Care Team Providers Name Role Phone Alisha Kimball MD Primary Care Provider Encounter Details Date Type Department Care Team Description 08/02/2001 Orders Only [facility] [address] [place] [address] Social History Tobacco Use Types Packs/Day Years Used Date Smoking Tobacco: Never Assessed Sex Assigned at Date Recorded Not on file documented as of this encounter Plan of Treatment Not on filedocumented as of this encounter Procedures Procedure Name Priority Date/Time Associated Diagnosis Comme nts STREP GRP A, RAPID Waiting 08/02/2001 6:56 PM Res ults for this SCREEN MANAGER SUSTAINABILITY procedure are i n the results section. documented in this encounter Results RAPID, GPA STREP SCREEN (WAITI (08/02/2001 6:56 PM MANAGER SUSTAINABILITY) [facility] gist Method Time Signature Patient Home [id number] liveBooks Phone # Patient Work [phone] live[employer] Phone # Grp A Rapid Negative [facility] Grp A Culture Negative [facility] Final Specimen Anatomical Collection Method Collection Time Receive d Time (Source) Location / / Volume Laterality 08/02/2001 6:56 PM 2 6:57 MANAGER SUSTAINABILITY PM MANAGER SUSTAINABILITY Full Range [facility] LAB_1 Performing Organization Address City/State/ZIP Code Phon e Number [facility] [phone] [employer] [address] [address] documented in this encounter Visit Diagnoses Not on filedocumented in this encounter Care Teams Typo Machine Operator Relationship Specialty Start Date End Date Alisha Kimball MD PCP - General 07/08/05 [address] [place] [address] documented as of this encounter
--- OUTSIDE RECORDS SUMMARY | 2022-04-13 07:42 | XMS_ITS | Encounter Summary ---
:1955 Author Organization [facility] Address [address] [place] [address] Care Team Providers Name Role Phone Miky Sultana MD Primary Care Provider Encounter Details Date Type Department Care Team Description 02/25/2005 Notes/Orders [facility] Alisha Kimball, URINARY FREQUENCY; Practice ELEV BL PRES W/O HYPERTN [address] [place] [address] [place], [place] [phone] Social History Tobacco Use Types Packs/Day Years [...] Signature Anion Gap 8 7 - 17 [facility] (calc.) mmol/L Specimen Anatomical Collection Method Collection Time Receive d Time (Source) Location / / Volume Laterality 02/25/2005 2:35 PM 5 2:36 CDT PM CDT Alisha Kimball MD LAB_1 Performing Organization Address City/State/ZIP Code Phon e Number [facility] [phone] [facility] [address] [address] HEMOGRAM/PLTS (02/25/2005 2:35 PM CDT) athologist Signature WBC 8.5 4.0 - 11.0 [facility] k/ul RBC 4.58 4.0 - 5.2 [facility] M/ul Hemoglobin 13.9 12.0 - 16.0 [facility] g/dl HCT 40.0 36.0 - 46.0 [facility] % MCV 87.1 80 - 100 fl [facility] MCH 30.3 26 - 34 pg [facility] MCHC 34.8 32 - 36 % [facility] RDW 13.1 11.5 - 14.5 [facility] % Platelets 286 150 - 450 [facility] k/ul Specimen Anatomical Collection Method Collection Time Receive d Time (Source) Location / / Volume Laterality 02/25/2005 2:35 PM 5 2:36 CDT PM CDT Alisha Kimball MD LAB_1 Performing Organization Address [facility] Phon e Number [facility] [phone] [address] SODIUM (02/25/2005 2:35 PM CDT) athologist Signature Sodium 140 135 - 145 [facility] mmol/L Specimen Anatomical Collection Method Collection Time Receive d Time (Source) Location / / Volume Laterality 02/25/2005 2:35 PM 5 2:36 CDT PM CDT Alisha Kimball MD LAB_1 Performing Organization Address [facility] Phon e Number [facility] [phone] [address] POTASSIUM (02/25/2005 2:35 PM CDT) athologist Signature Potassium 4.2 3.5 - 5.3 [facility] mmol/L Specimen Anatomical Collection Method Collection Time Receive d Time (Source) Location / / Volume Laterality 02/25/2005 2:35 PM 5 2:36 CDT PM CDT Alisha Kimball MD LAB_1 Performing Organization Address [facility]/ZIP Code Phon e Number [facility] [phone] [facility] [address] [place] [phone] GLUCOSE - RANDOM < 8HR FASTING (V77.1) (02/25/2005 2:35 PM CDT) athologist Signature Glucose 111 65 - 115 [facility] mg/dl Hours Fasting 2 hours [facility] Specimen Anatomical Collection Method Collection Time Receive d Time (Source) Location / / Volume Laterality 02/25/2005 2:35 PM 5 2:36 CDT PM CDT Alisha Kimball MD LAB_1 Performing Organization Address City/[facility]/ZIP Code Phon e Number [facility] [phone] [facility] [address] [place] [phone] CO2 (02/25/2005 2:35 PM CDT) athologist Signature CO2 28 22 - 31 [facility] mmol/L Specimen Anatomical Collection Method Collection Time Receive d Time (Source) Location / / Volume Laterality 02/25/2005 2:35 PM 5 2:36 CDT PM CDT Alisha Kimball MD LAB_1 Performing Organization Address City/[facility]/ZIP Code Phon e Number [employer] [facility] [phone] [facility] [address] [place] [phone] CREATININE / GFR (02/25/2005 2:35 PM CDT) [...] Organization Address City/State/ZIP Code Phon e Number [employer] [facility] [phone] [facility] [address] [place] [address] CHLORIDE (02/25/2005 2:35 PM CDT) athologist Signature Chloride 104 95 - 105 [facility] mmol/L Specimen Anatomical Collection Method Collection Time Receive d Time (Source) Location / / Volume Laterality 02/25/2005 2:35 PM 5 2:36 CDT PM CDT Alisha Kimball MD LAB_1 Performing Organization Address City/[facility] Code Phon e Number GOOD [phone] [facility] [address] [place] [address] CALCIUM (02/25/2005 2:35 PM CDT) athologist Signature Calcium 9.5 8.2 - 10.0 [facility] mg/dl Specimen Anatomical Collection Method Collection Time Receive d Time (Source) Location / / Volume Laterality 02/25/2005 2:35 PM 5 2:36 CDT PM CDT Alisha Kimball MD LAB_1 Performing Organization Address City/[facility]/ZIP Code Phon e Number [employer] [facility] [phone] [facility] [address] [place] [address] BUN (02/25/2005 2:35 PM CDT) athologist Signature BUN 17 10 - 26 [facility] mg/dl Specimen Anatomical Collection Method Collection Time Receive d Time (Source) Location / / Volume Laterality 02/25/2005 2:35 PM 5 2:36 CDT PM CDT Alisha Kimball MD LAB_1 Performing Organization Address City/[facility]/ZIP Code Phon e Number GOOD [phone] [facility] [address] [place] [phone] ALT (SGPT) (02/25/2005 2:35 PM CDT) athologist Signature ALT (SGPT) 34 0 - 55 U/L [facility] Specimen Anatomical Collection Method Collection Time Receive d Time (Source) Location / / Volume Laterality 02/25/2005 2:35 PM 5 2:36 CDT PM CDT Alisha Kimball MD LAB_1 Performing Organization Address [facility] Phon e Number [facility] Commtimize [phone] [facility] [address] [place] [address] AST (02/25/2005 2:35 PM CDT) athologist Signature AST (SGOT) 16 <45 U/L [facility] Specimen Anatomical Collection Method Collection Time Receive d Time (Source) Location / / Volume Laterality 02/25/2005 2:35 PM 5 2:36 CDT PM CDT Alisha Kimball MD LAB_1 Performing Organization Address [facility] Phon e Number GOOD [phone] [address] URINE CULTURE IF (02/25/2005 1:40 PM CDT) [facility] gist Method Time Signature Urine Cult If UC Not [facility] Indicated Specimen Anatomical Collection Method Collection Time Receive d Time (Source) Location / / Volume Laterality 02/25/2005 1:40 PM 5 1:41 CDT PM CDT Alisha Kimball MD LAB_1 Performing Organization Address [facility] Phon e Number [facility] [phone] [facility] [address] [place] [phone] UA MICRO IF (02/25/2005 1:40 PM CDT) [facility] gist Method Time Signature Appr Yellow [...] Organization Address City/State/ZIP Code Phon e Number [facility] [phone] [facility] [address] [phone] documented in this encounter Visit Diagnoses Diagnosis Urinary frequency Elevated blood pressure reading without diagnosis of hypertension documented in this encounter Care Teams Soda Maker Relationship Specialty Start Date End Date Miky Sultana MD PCP - General 09/21/01 07/07/05 [address] [place] [address] documented as of this encounter
--- OUTSIDE RECORDS SUMMARY | 2022-04-13 07:42 | XMS_ITS | Encounter Summary ---
:1955 Author Organization [facility] Address [address], [place] [address] Care Team Providers Name Role Phone Alisha Kimball MD Primary Care Provider Reason for Visit Reason Comments COUGH for several days Encounter Details Date Type Department Care Team Description 07/08/2005 Office Visit [facility] Alisha Kimball, COUGH (P rimary Dx); Practice MD SCREEN FOR LIPID DISORDERS [address] [facility]. [address] [place] [address] [place] [address] [phone] Social History Tobacco Use Types Packs/Day Years Used Date Smoking Tobacco: Never Alcohol Use Standard Drinks/Week Comments Not Asked 0 (1 standard drink = 0.6 oz pure alcoho l) Sex Assigned at Date Recorded Not on file documented as of this encounter Last Filed Vital Signs Vital Sign Reading Time Taken Comments Blood Pressure - - Pulse 78 07/08/2005 3:51 PM SALES TRAINING MANAGER Temperature 37 ??C (98.6 ??F) 07/08/2005 3:51 PM SALES TRAINING MANAGER Respiratory Rate 18 07/08/2005 3:51 PM SALES TRAINING MANAGER Oxygen Saturation 97% 07/08/2005 3:51 PM SALES TRAINING MANAGER Inhaled Oxygen Concentration - - Weight 83.9 kg (185 lb) 07/08/2005 3:51 PM SALES TRAINING MANAGER Height - - Body Mass Index - [...] breathing, or any other concerns. P cc: S TRAINING MANAGER documented in this encounter Plan of Treatment Not on filedocumented as of this encounter Procedures Procedure Name Priority Date/Time Associated Comments Diagnosis BORDETELLA PERTUSSIS Routine 07/08/2005 4:28 PM Cough R esults for this / PARAPERTUSSIS, SALES TRAINING MANAGER procedure a re in MOLECULAR DETECTION the resu lts section. documented in this encounter Results (ABNORMAL) B PERTUSSIS/PARA,PCR (07/08/2005 4:28 PM SALES TRAINING MANAGER) Component Value Ref Test Analysis Performed At [facility] Method Time Signature B Positive - [facility] pertussis/pa BORDETELLA ra PCR PARAPERTUSSIS DNA DETECTED (A) Comment: Negative - No Bordetella pertus sis DNA Detected Comment Referred to [employer] Specimen Anatomical Collection Method Collection Time Receive d Time (Source) Location / / Volume Laterality 07/08/2005 4:28 PM 6 4:29 SALES TRAINING MANAGER PM SALES TRAINING MANAGER Alisha Kimball MD LAB_1 Performing Organization Address City/State/ZIP Code Phon e Number [facility] [phone] [facility] [address] [phone] documented in this encounter Visit Diagnoses Diagnosis Cough - Primary Screening for lipoid disorders documented in this encounter Care Teams Aircraft Electrical Systems Specialist Relationship Specialty Start Date End Date Alisha Kimball MD PCP - General 07/08/05 [address] [place] [address] documented as of this encounter
--- OUTSIDE RECORDS SUMMARY | 2022-04-13 07:42 | XMS_ITS | Encounter Summary ---
:1955 Author Organization [facility] Address [address] [place] [address] Care Team Providers Name Role Phone Alisha Kimball MD Primary Care Provider Encounter Details Date Type Department Care Team Description 05/03/2000 Orders Only [facility] [address] [place], [place] [address] Social History Tobacco Use Types Packs/Day Years Used Date Smoking Tobacco: Never Assessed Sex Assigned at Date Recorded Not on file documented as of this encounter Plan of Treatment Not on filedocumented as of this encounter Procedures Procedure Name Priority Date/Time Associated Diagnosis Comme nts URINE CULTURE Routine 05/03/2000 6:54 PM Results for this CRYSTALLOGRAPHY TEACHER procedure are i n the results section . documented in this encounter Results URINE CULTURE (MIDSTREAM) (05/03/2000 6:54 PM CRYSTALLOGRAPHY TEACHER) [facility] Method Time Signature Specimen Urine [facility] Description Special None [facility] Requests Culture No Growth [facility] After 1 Day Report Status Final [facility] Report Status [id number] [facility] Specimen Anatomical Collection Method Collection Time Receive d Time (Source) Location / / Volume Laterality 05/03/2000 6:54 PM 0 6:55 CRYSTALLOGRAPHY TEACHER PM CRYSTALLOGRAPHY TEACHER Full Range [facility] LAB_1 Performing Organization Address City/State/ZIP Code Phon e Number [facility] [phone] [facility] [address] [phone] documented in this encounter Visit Diagnoses Not on filedocumented in this encounter Care Teams Sewing Machine Operator Paper Bags Relationship Specialty Start Date End Date Alisha Kimball MD PCP - General 07/08/[address] [place] [address] documented as of this encounter
--- OUTSIDE RECORDS SUMMARY | 2022-04-13 07:42 | XMS_ITS | Encounter Summary ---
:1955 Author Organization [facility] Address [address], [place] [address] Care Team Providers Name Role Phone Miky [...] filedocumented in this encounter Care Teams Roll Forming Supervisor Relationship Specialty Start Date End Date Miky Sultana MD PCP - General 09/21/01 07/07/05 [address] [address] documented as of this encounter
--- OUTSIDE RECORDS SUMMARY | 2022-04-13 07:42 | XMS_ITS | Encounter Summary ---
:1955 Author Organization [facility] Address [address] [place] [address] Care Team Providers Name Role Phone Alisha Kimball MD Primary Care Provider Reason for Referral Specialty Diagnoses / Procedures Referred By Contact Refer red To Contact Mauro Keyes MD [address] [place] [address] Referral ID Status Reason Start Date Expiration Date Visits Requ ested Visits Authorized Specialty Diagnoses / Procedures Referred By Contact Refer red To Contact Mauro Keyes MD [address] [place] [phone] Referral ID Status Reason Start Date Expiration Date Visits Requ ested Visits Authorized Reason for Visit Reason Comments RASH also cut on leg in Jul. Encounter Details Date Type Department Care Team Description 11/17/2005 Office Visit [facility] Mauro Keyes NONSPECI F SKIN ERUPT NEC (Primary Dx); Timbo Amos MD SCREENING MAMM-MAILG NEOPL NEC; 50 [facility]. [address] [facility] [place] [address] [place] [address] Social History Tobacco Use Types Packs/Day Years Used Date Smoking Tobacco: Never Alcohol Use Standard Drinks/Week Comments Not Asked 0 (1 standard drink = 0.6 oz pure alcoho l) Sex Assigned at Date Recorded Not on file documented as of this encounter Last Filed Vital Signs Vital Sign Reading Time Taken Comments Blood Pressure 122/60 11/17/2005 9:00 AM CDT Pulse 68 11/17/2005 9:00 AM CDT Temperature 36.6 ??C (97.9 ??F) 11/17/2005 9:00 AM CDT Respiratory Rate 16 11/17/2005 9:00 AM CDT Oxygen Saturation - - Inhaled Oxygen Concentration - - Weight 86.6 kg (191 lb) 11/17/2005 9:00 AM CDT Height - - Body Mass Index - - documented in this encounter Progress Notes 11/17/2005 9:00 AM CDT This office note has been dictated. documented in this encounter Consult Mauro Poon V - 11/17/2005 12:00 AM CDTSUBJECTIVE: Ms. Velacso is a 50 -year-old lady who comes in today because of a rash. She claims that she hit her left lower beavers area and at that time she had a small wound. As far as the healing process she says she started noticing pruritus around the area and she started scratching. This is July of 2005. Since then the area around has continued to itch and patient has been putting hydrocortisone on a daily basis and has been doing that since then. According to her this has progressed. Now there are two patches that are extremely pruritic and slightly erythematous. One is in the left upper area of the lower leg and another patch is further down. The area that has the healed scar is the upper patch. Patient also claims that she has not been using lotion. In spite of using the hydrocortisone it still gets extremely pruritic that the patient scratches. She has not shaved her legs secondary to this. She wants some medication because in the next few weeks she will attending a graduation and wants to wear stockings with her dress and she is unable to wear nylon stockings secondary to the pruritus this brings. No other lesions noted. OBJECTIVE: Physical exam. Awake, alert, not in distress. Vitals as above. Examination of the left lower leg area, there are two patches slightly erythematous with signs of excoriation. The upper one has a small healed scar. The lower one has some thickened skin consistent with some lichenification. There is a very faint erythematous rash that probably points to this being allergic or irritation-like in etiology. ASSESSMENT PLAN: Nonspecific rash, not specific dermatitis, likely aggravated by very dry skin as noted in today's exam. Patient will apply triamcinolone twice a day and she was advised to apply unscented mild moisturizing lotion to the areas as well. She will set up an appointment with Dermatology for further evaluation and management if this progresses. A cc: documented in this encounter Plan of Treatment Not on filedocumented as of this encounter Visit Diagnoses Diagnosis Rash and other nonspecific skin eruption - Primary Other screening mammogram Routine general medical examination at [facility] Routine general medical examination at [facility] documented in this encounter Care Teams Manager Games Relationship Specialty Start Date End Date Alisha Kimball MD PCP - General 07/08/05 [address] [place] [address] documented as of this encounter
--- OUTSIDE RECORDS SUMMARY | 2022-04-13 07:42 | XMS_ITS | Encounter Summary ---
:1955 Author Organization [facility] Address [address] [place] [address] Care Team Providers Name Role Phone Carroll Avalos MD Primary Care Provider Reason for Visit Reason Comments LAB RESULTS positive parapertussis DNA Encounter Details Date Type Department Care Team Description 07/09/2005 Telephone [facility] Carroll Avalos, LAB RESU LTS (positive Practice parapertussis DNA) [address] [facility]. [address] [place] [address] [place], [place] [id number] Social History Tobacco Use Types Packs/Day Years Used Date Smoking Tobacco: Never Alcohol Use Standard Drinks/Week Comments Not Asked 0 (1 standard drink = 0.6 oz pure alcoho l) Sex Assigned at Date Recorded Not on file documented as of this encounter Nursing Notes 07/09/2005 11:59 PM SUPERVISOR HEADING >> CARROLL AVALOS Mon Jul 20, 2005 [...] she need furthe r treatment? Pt. uses [facility] pharmacy. Has allergy to Sulfa. >> KRYSTYNA GARCÍA Fri Jul 17, 2005 10:57 AM 10:50 AM MLTRC again-see encounter note. Pt Tx on visit. Krystyna García, RN >> CARROLL AVALOS Lgoria Jul 09, 2005 1:21 PM Called Jackie at [facility]. She recommended treating the patient but no prophylaxi s for contacts. Unable to reach the patient and message left at home to call back. Office number lety conroy is a fax number. Carroll Avalos MD documented in this encounter Plan of Treatment Not on filedocumented as of this encounter Visit Diagnoses Not on filedocumented in this encounter Care Teams Mold Stacker Relationship Specialty Start Date End Date Carroll Avalos MD PCP - General 07/08/05 [address] [place] [address] documented as of this encounter
--- OUTSIDE RECORDS SUMMARY | 2022-04-13 07:42 | XMS_ITS | Encounter Summary ---
:1955 Author Organization [facility] Address [address] [address] Care Team Providers Name Role Phone Luis Pierce MD Primary Care Provider Unavailable Encounter Details Date Type Department Care Team Description 11/22/2000 Orders Only [facility] Miky Salinas MD [address] [place] [address] [place] [address] (Wo rk) Social History Tobacco Use Types Packs/Day Years Used Date Smoking Tobacco: Never Assessed Sex Assigned at Date Recorded Not on file documented as of this encounter Plan of Treatment Not on filedocumented as of this encounter Visit Diagnoses Not on filedocumented in this encounter Care Teams Die Barber Relationship Specialty Start Date End Date Luis Pierce MD PCP - General 05/27/1998 documented as of this encounter
--- OUTSIDE RECORDS SUMMARY | 2022-04-13 07:42 | XMS_ITS | Encounter Summary ---
:1955 Author Organization [employer] Address [address] [place] [address] Care Team Providers Name Role Phone Luis Pierce MD Primary Care Provider Unavailable Reason for Visit Reason Comments PAIN, FOOT VIA INTERFACE Encounter Details Date Type Department Care Team Description 02/17/2000 Office Visit [facility] Anam Mosquera DPM PAIN IN LIMB Surgery/Podiatry [address] [place], [place] [address] (Wo rk) Social History [...] limb documented in this encounter Care Teams Forge Operator Relationship Specialty Start Date End Date Luis Pierce MD PCP - General 05/27/1998 documented as of this encounter
--- OUTSIDE RECORDS SUMMARY | 2022-04-13 07:42 | XMS_ITS | Encounter Summary ---
:1955 Author Organization [employer] [facility] Address [address] [place] [address] Care Team Providers Name Role Phone Miky Sultana MD Primary Care Provider Reason for Visit Reason Comments INFECTION, URINARY TRACT Encounter Details Date Type Department Care Team Description 02/25/2005 Office Visit [facility] Alisha Kimball, URINARY FREQUENCY (Primary Dx); Practice NONSPECIF SKIN ERUPT NEC; [address] [place] [address] [place] [address] [phone] Social History Tobacco Use Types Packs/Day Years [...] is my first visit with this 50 -fmrb-vml-qnoqyf seen today primarily for evaluation of some [...] trial of Nystatin cream bid layered with ebri-ong-nhiyvmw 1% cortisone cream. She is counseled that [...] She may even need to use a chair inspector and leveler after showering. 2. Hypertension. She tells me her blood pressure, overall, has been increasing along with her weight. We reviewed her chart today. There is a family history of hypertension in both parents. Her father also had an NE. We discussed medications. I recommended first doing some screening lab work. See orders. If those results are normal, I will contact her to get her started on some blood pressure medication. A cc: documented in this encounter Plan of Treatment Not on filedocumented as of this encounter Results HEMOGRAM/PLTS (02/25/2005 2:35 PM CDT) athologist Signature WBC 8.5 4.0 - 11.0 [facility] k/ul RBC 4.58 4.0 - 5.2 [facility] M/ul Hemoglobin 13.9 12.0 - 16.0 [facility] g/dl HCT 40.0 36.0 - 46.0 [facility] % MCV 87.1 80 - 100 fl [facility] MCH 30.3 26 - 34 pg [facility] MCHC 34.8 32 - 36 % [facility] RDW 13.1 11.5 - 14.5 [facility] % Platelets 286 150 - 450 [facility] k/ul Specimen Anatomical Collection Method Collection Time Receive d Time (Source) Location / / Volume Laterality 02/25/2005 2:35 PM 5 2:36 CDT PM CDT Alisha Kimball MD LAB_1 Performing Organization Address [facility] Phon e Number [facility] [phone] [phone] SODIUM (02/25/2005 2:35 PM CDT) athologist Signature Sodium 140 135 - 145 [facility] mmol/L Specimen Anatomical Collection Method Collection Time Receive d Time (Source) Location / / Volume Laterality 02/25/2005 2:35 PM 5 2:36 CDT PM CDT Alisha Kimball MD LAB_1 Performing Organization Address [facility] Phon e Number [facility] [phone] [phone] POTASSIUM (02/25/2005 2:35 PM CDT) athologist Signature Potassium 4.2 3.5 - 5.3 [facility] mmol/L Specimen Anatomical Collection Method Collection Time Receive d Time (Source) Location / / Volume Laterality 02/25/2005 2:35 PM 5 2:36 CDT PM CDT Alisha Kimball MD LAB_1 Performing Organization Address City/State/ZIP Code Phon e Number [employer] [phone] [facility] [address] [phone] GLUCOSE - RANDOM < 8HR FASTING (V77.1) (02/25/2005 2:35 PM CDT) athologist Signature Glucose 111 65 - 115 [facility] mg/dl Hours Fasting 2 hours [facility] Specimen Anatomical Collection Method Collection Time Receive d Time (Source) Location / / Volume Laterality 02/25/2005 2:35 PM 5 2:36 CDT PM CDT Alisha Kimball MD LAB_1 Performing Organization Address City/[facility] Phon e Number [facility] [phone] [facility] [address] [place] [phone] CO2 (02/25/2005 2:35 PM CDT) athologist Signature CO2 28 22 - 31 [facility] mmol/L Specimen Anatomical Collection Method Collection Time Receive d Time (Source) Location / / Volume Laterality 02/25/2005 2:35 PM 5 2:36 CDT PM CDT Alisha Kimball MD LAB_1 Performing Organization Address City/[facility] Phon e Number [facility] [phone] [facility] [address] [place] [phone] CREATININE / GFR (02/25/2005 2:35 PM CDT) athologist Signature Creatinine 0.9 0.6 - 1.3 [facility] mg/dl GFR, Estimated 70.2 >60 [facility] ml/min/1.7 3m2 GFR, Est., If >80.0 >60 [facility] Black ml/min/1.7 3m2 Specimen Anatomical Collection Method Collection Time Receive d Time (Source) Location / / Volume Laterality 02/25/2005 2:35 PM 5 2:36 CDT PM CDT Alisha Kimball MD LAB_1 Performing Organization Address City/[facility]/ZIP Code Phon e Number [facility] [phone] [facility] [address] [phone] CHLORIDE (02/25/2005 2:35 PM CDT) P athologist Signature Chloride 104 95 - 105 [facility] mmol/L Specimen Anatomical Collection Method Collection Time Receive d Time (Source) Location / / Volume Laterality 02/25/2005 2:35 PM 5 2:36 CDT PM CDT Alisha Kimball MD LAB_1 Performing Organization Address [facility]/ZIP Code Phon e Number [facility] [phone] [facility] [address] [place] [phone] CALCIUM (02/25/2005 2:35 PM CDT) P athologist Signature Calcium 9.5 8.2 - 10.0 [facility] mg/dl Specimen Anatomical Collection Method Collection Time Receive d Time (Source) Location / / Volume Laterality 02/25/2005 2:35 PM 5 2:36 CDT PM CDT Alisha Kimball MD LAB_1 Performing Organization Address City/[facility]/ZIP Code Phon e Number [facility] [phone] [facility] [address] [place] [phone] BUN (02/25/2005 2:35 PM CDT) P athologist Signature BUN 17 10 - 26 [facility] mg/dl Specimen Anatomical Collection Method Collection Time Receive d Time (Source) Location / / Volume Laterality 02/25/2005 2:35 PM 5 2:36 CDT PM CDT Alisha Kimball MD LAB_1 Performing Organization Address City/[facility]/ZIP Code Phon e Number [facility] [phone] [facility] [address] [place] [phone] ALT (SGPT) (02/25/2005 2:35 PM CDT) athologist Signature ALT (SGPT) 34 0 - 55 U/L [facility] Specimen Anatomical Collection Method Collection Time Receive d Time (Source) Location / / Volume Laterality 02/25/2005 2:35 PM 5 2:36 CDT PM CDT Alisha Kimball MD LAB_1 Performing Organization Address [facility] Phon e Number [facility] [phone] [facility] [address] [place] [phone] AST (02/25/2005 2:35 PM CDT) athologist Signature AST (SGOT) 16 <45 U/L [facility] Specimen Anatomical Collection Method Collection Time Receive d Time (Source) Location / / Volume Laterality 02/25/2005 2:35 PM 5 2:36 CDT PM CDT Alisha Kimball MD LAB_1 Performing Organization Address [facility] Phon e Number [facility] [phone] [address] URINE CULTURE IF (02/25/2005 1:40 PM CDT) [facility] gist Method Time Signature Urine Cult If UC Not [facility] Indicated Specimen Anatomical Collection Method Collection Time Receive d Time (Source) Location / / Volume Laterality 02/25/2005 1:40 PM 5 1:41 CDT PM CDT Alisha Kimball MD LAB_1 Performing Organization Address [facility] Phon e Number [facility] [phone] [phone] UA MICRO IF (02/25/2005 1:40 PM CDT) [facility] gist Method Time Signature Appr Yellow [...] Organization Address City/State/ZIP Code Phon e Number [facility] [phone] [phone] documented in this encounter Visit Diagnoses Diagnosis Urinary frequency - Primary Rash and other nonspecific skin eruption Elevated blood pressure reading without diagnosis of hypertension documented in this encounter Care Teams Printing Worker Supervisor Relationship Specialty Start Date End Date Miky Sultana MD PCP - General 09/21/01 07/07/05 [address] [place] [address] documented as of this encounter
--- OUTSIDE RECORDS SUMMARY | 2022-04-13 07:42 | XMS_ITS | Encounter Summary ---
:1955 Author Organization [facility] Address [address] [address] Care Team Providers Name Role Phone Alisha Kmiball MD Primary Care Provider Reason for Visit Reason Onset Date Comments COUGH 07/08/2005 cough Encounter Details Date Type Department Care Team Description 07/08/2005 Telephone [facility] Miky Salinas MD COUGH (cough) [address] [place] [address] [place] [address] [phone] (Wo rk) Social History Tobacco Use Types Packs/Day Years Used Date Smoking Tobacco: Never Alcohol Use Standard Drinks/Week Comments Not Asked 0 (1 standard drink = 0.6 oz pure alcoho l) Sex Assigned at Date Recorded Not on file documented as of this encounter Nursing Notes 07/08/2005 11:59 PM INBOUND SALES REPRESENTATIVE >> JORGE PONCE Wed Jul 08, 2005 [...] on filedocumented in this encounter Care Teams Captain'S Assistant Relationship Specialty Start Date End Date Alisha Kimball MD PCP - General 07/08/05 [address] [place] [address] documented as of this encounter
--- OUTSIDE RECORDS SUMMARY | 2022-04-13 07:42 | XMS_ITS | Encounter Summary ---
:1955 Author Organization [facility] Address [address] [place] [address] Care Team Providers Name Role Phone Luis Pierce MD Primary Care Provider Unavailable Encounter Details Date Type Department Care Team Description 08/18/2001 Orders Only [facility] Hiram Romero MD [address] [place] [address] [place] [address] [phone] (Wo rk) Social History Tobacco Use Types Packs/Day Years Used Date Smoking Tobacco: Never Assessed Sex Assigned at Date Recorded Not on file documented as of this encounter Plan of Treatment Not on filedocumented as of this encounter Visit Diagnoses Not on filedocumented in this encounter Care Teams Print Cutter Relationship Specialty Start Date End Date Luis Pierce MD PCP - General 05/27/1998 documented as of this encounter
--- OUTSIDE RECORDS SUMMARY | 2022-04-13 07:42 | XMS_ITS | Encounter Summary ---
:1955 Author Organization [facility] Address [address] [place] [address] Care Team Providers Name Role Phone Alisha Kimball MD Primary Care Provider Encounter Details Date Type Department Care Team Description 05/03/2000 Orders Only [facility] [address] [place] [phone] Social History Tobacco Use Types Packs/Day Years Used Date Smoking Tobacco: Never Assessed Sex Assigned at Date Recorded Not on file documented as of this encounter Plan of Treatment Not on filedocumented as of this encounter Procedures Procedure Name Priority Date/Time Associated Diagnosis Comme nts ACCUCHECK GLU Waiting 05/03/2000 6:54 PM Results for this RANDOM <8HR FAST GUYLINE OPERATOR procedure a re in (WAITING) the results section. UA WITH MICRO Waiting 05/03/2000 6:54 PM Results for this GUYLINE OPERATOR procedure are i n the results section. ESR Waiting 05/03/2000 6:54 PM Results f or this GUYLINE OPERATOR procedure are i n the results section. documented in this encounter Results ESR (05/03/2000 6:54 PM GUYLINE OPERATOR) P athologist Signature ESR 12 0 - 20 [facility] mm/hr Specimen Anatomical Collection Method Collection Time Receive d Time (Source) Location / / Volume Laterality 05/03/2000 6:54 PM 0 6:55 GUYLINE OPERATOR PM GUYLINE OPERATOR Full Range [facility] LAB_1 Performing Organization Address City/State/ZIP Code Phon e Number [facility] [phone] [facility] [address] [phone] UA WITH MICRO (05/03/2000 6:54 PM GUYLINE OPERATOR) Analysis Performed At Patho logist Time [...] Volume Laterality 05/03/2000 6:54 PM 0 6:55 GUYLINE OPERATOR PM GUYLINE OPERATOR Full Range [facility] LAB_1 Performing Organization Address City/[facility] Phon e Number [employer] [phone] [facility] [address] [place] [phone] ACCUCHECK GLU RANDOM <8HR FAST WAITING (05/03/2000 6:54 PM GUYLINE OPERATOR) Component Value Ref Test Analysis Performed At Patholo gist Range Method Time Signature Glucose, bG 92 65 - 115 [facility] Strip mg/dl Glucose, bG Semi-quantitative result (bG) may be [facility] Strip 5-10% lower than quantitative result. Hours Fasting 2 hours [facility] Specimen Anatomical Collection Method Collection Time Receive d Time (Source) Location / / Volume Laterality 05/03/2000 6:54 PM 0 6:55 GUYLINE OPERATOR PM GUYLINE OPERATOR Full Range [facility] LAB_1 Performing Organization Address [facility] Phon e Number [employer] [phone] [facility] [address] [place] [phone] documented in this encounter Visit Diagnoses Not on filedocumented in this encounter Care Teams Male Impersonator Relationship Specialty Start Date End Date Alisha Kimball MD PCP - General 07/08/[address] [place] [address] documented as of this encounter
--- OUTSIDE RECORDS SUMMARY | 2022-04-13 07:42 | XMS_ITS | Encounter Summary ---
:1955 Author Organization [facility] Address [address], [place] [address] Care Team Providers Name Role Phone Luis Pierce MD Primary Care Provider Unavailable Encounter Details Date Type Department Care Team Description 01/17/[address] [facility] Miky Sultana MD INT DERANGEMENT [facility] [address] [facility] NOS [address] [place] [address] [place] [address] [phone] Social History Tobacco Use Types Packs/Day Years [...] knee documented in this encounter Care Teams Installer Interior Assemblies Relationship Specialty Start Date End Date Luis Pierce MD PCP - General 05/27/1998 documented as of this encounter
--- OUTSIDE RECORDS SUMMARY | 2022-04-13 07:42 | XMS_ITS | Encounter Summary ---
:1955 Author Organization [facility] Address [address] [address] Care Team Providers Name Role Phone Miky Sultana MD Primary Care Provider Reason for Visit Reason Comments BP CHECK,NURSE Encounter Details Date Type Department Care Team Description 03/16/2005 Office Visit [employer] [facility] [employer] Auto Repair Teacher/Christopher/Simona Sibley HYPERTENSI ON NOS Department Nursing [address] [facility] [address] [place] [address] [place] [address] [phone] Social History Tobacco Use Types Packs/Day Years Used Date Smoking Tobacco: Never Alcohol Use Standard Drinks/Week Comments Not Asked 0 (1 standard drink = 0.6 oz pure alcoho l) Sex Assigned at Date Recorded Not on file documented as of this encounter Last Filed Vital Signs Vital Sign Reading Time Taken Comments Blood Pressure 124/86 03/16/2005 4:36 PM CDT (from Ex tended Vitals) Pulse 78 03/16/2005 4:35 PM CDT Temperature - - Respiratory Rate - - Oxygen Saturation - - Inhaled Oxygen Concentration - - Weight - - Height - - Body Mass Index - - documented in this encounter Progress Notes 03/16/2005 4:15 PM CDT S: Loc Velasco here today for follow up blood pressure check. O: Blood pressures recorded. Additional readings taken, see extended vitals for documentation. A: Readings within normal limits. P: Copy of today's visit will be sent to Dr. Kimball. Rachael Martinez LPN 03/16/2005 4:37 PM documented in this encounter Plan of Treatment Not on filedocumented as of this encounter Visit Diagnoses Diagnosis Unspecified essential hypertension (HRC) Unspecified essential hypertension documented in this encounter Care Teams Director Of Rehabilitative Services Relationship Specialty Start Date End Date Miky Sultana MD PCP - General 09/21/01 07/07/05 [address] [place] [address] documented as of this encounter
--- OUTSIDE RECORDS SUMMARY | 2022-04-13 07:43 | XMS_ITS | Encounter Summary ---
:1955 Author Organization [facility] Address [address] [place] [address] Care Team Providers Name Role Phone Luis Pierce MD Primary Care Provider Unavailable Encounter Details Date Type Department Care Team Description 08/22/1998 Other Services Indra Willams MD [facility] [address] Social History Tobacco Use Types Packs/Day Years Used Date Smoking Tobacco: Never Assessed Sex Assigned at Date Recorded Not on file documented as of this encounter Plan of Treatment Not on filedocumented as of this encounter Visit Diagnoses Diagnosis Excessive or frequent menstruation Dysplasia of cervix (uteri) Cervicitis and endocervicitis documented in this encounter Care Teams Co Founder And Director Relationship Specialty Start Date End Date Luis Pierce MD PCP - General 05/27/1998 documented as of this encounter
--- OUTSIDE RECORDS SUMMARY | 2022-04-13 07:43 | XMS_ITS | Encounter Summary ---
:1955 Author Organization [facility] Address [address] [place] [address] Care Team Providers Name Role Phone Luis Pierce MD Primary Care Provider Unavailable Encounter Details Date Type Department Care Team Description 12/17/1998 Orders Only Hafsa Lei, AUTO DAMAGE TRAINEE, LICENSED MASTER SOCIAL WORKER [address] [place], [place] [address] (Wo rk) Social History Tobacco Use Types Packs/Day Years Used Date Smoking Tobacco: Never Assessed Sex Assigned at Date Recorded Not on file documented as of this encounter Plan of Treatment Not on filedocumented as of this encounter Procedures Procedure Name Priority Date/Time Associated Diagnosis Comme nts UA WITH MICRO Waiting 12/17/1998 4:36 PM Results for this CDT procedure are i n the results section . documented in this encounter Results UA WITH MICRO (12/17/1998 4:36 PM CDT) Analysis Performed At Patho logist Time Signature Appr Yellow [facility] Appr Clear [facility] Sp Gr 1.022 1.005 - [facility] 1.030 Leuk 0 0 [facility] Nitr 0 0 [facility] pH 5.0 4.5 - 8.0 [facility] Prot 0 0 mg/dl [facility] Gluc 0 0 g/dl [facility] Ket 0 0 [facility] Urob 0.1-1 0.1 - 1 [facility] mg/dl Bili 0 0 [facility] Blood 0 0 [facility] RBC'S 0 0 - 3 /hpf [facility] WBC'S 0 0 - 5 /hpf [facility] Epith, 0 /hpf [facility] Squamous Bact 0 [facility] Casts 0 /lpf [facility] Other 0 [facility] Specimen Anatomical Collection Method Collection Time Receive d Time (Source) Location / / Volume Laterality 12/17/1998 4:36 PM 9 4:37 CDT PM CDT Emily Lei APRN, ISI LAB_1 Performing Organization Address City/State/ZIP Code Phon e Number [facility] [phone] [facility] [address] [address] documented in this encounter Visit Diagnoses Not on filedocumented in this encounter Care Teams Mold Carpenter Relationship Specialty Start Date End Date Luis Pierce MD PCP - General 05/27/1998 documented as of this encounter
--- OUTSIDE RECORDS SUMMARY | 2022-04-13 07:43 | XMS_ITS | Encounter Summary ---
:1955 Author Organization [facility] Address [address] [place] [address] Care Team Providers Name Role Phone Luis Pierce MD Primary Care Provider Unavailable Encounter Details Date Type Department Care Team Description 12/17/1998 Office Visit Hafsa Lei, TABLEAU ARCHITECT, TELESALES REPRESENTATIVE [address] [place], [place] [address] (Wo rk) Social History Tobacco Use Types Packs/Day Years Used Date Smoking Tobacco: Never Assessed Sex Assigned at Date Recorded Not on file documented as of this encounter Progress Notes Emily Lei - 12/17/1998 12:00 AM CDTS: 43-year-old female who returns because of frequency and urgency. She has had at least two or three other prior episodes of this. She had been treated in the past as if she has had a bladder infection, however she does not have resolution in her symptoms with utilizing antibiotics. She is sexually active with one partner, believed to be a monogamous relationship. She had bladder repair on 08/22/98. She had a suprapubic catheter placed at that time, which was removed. Actually in reviewing the chart her symptoms have started after this surgery. She has noted the last time she had sex with her she leaked urine. She has never done this in the past. She has had Macrobid and Cipro in the past for her symptoms with no resolutions. She has had a hysterectomy and she has one ovary remaining. She has no vaginal symptoms. SHE HAS AN ALLERGY TO SULFA. O: Height is 5'5. Weight is 182. She is afebrile. Pulse 76 and regular. Blood pressure 120/76. There is no CVA tenderness. Abdomen soft, flat no mass or organomegaly, rebound, or rigidity. There is no palpable tenderness. In reviewing her lab she has had a urinalysis on 08/30/98, 09/18/98, 12/12/98. Urine was cultured on 09/18/98 and 12/12/98 both negative for infection. Urinalysis today is completely normal. Told the patient of the possibility of bladder spasm. She is having difficulty. Had her void and did not catheter for post void residual which there was absolutely none. The patient has no history of glaucoma. Trial of Ditropan will be done. A: Urinary frequency and urgency. P: Trial of Ditropan 2.5 to 5 mg three times a day, prn. She's getting a prescription for #90. She is going to monitor her symptoms to see if this takes care of her symptoms, if not she is going to return to clinic. We'll do a wet prep at that time and if she continues to have some symptoms would send her out to urology. PROBLEM: URINARY cc: documented in this encounter Plan of Treatment Not on filedocumented as of this encounter Visit Diagnoses Not on filedocumented in this encounter Care Teams Dye Tank Tender Relationship Specialty Start Date End Date Luis Pierce MD PCP - General 05/27/1998 documented as of this encounter
--- OUTSIDE RECORDS SUMMARY | 2022-04-13 07:43 | XMS_ITS | Encounter Summary ---
:1955 Author Organization [facility] Address [address] [place] [address] Care Team Providers Name Role Phone Alisha Kimball MD Primary Care Provider Encounter Details Date Type Department Care Team Description 09/18/1998 Orders Only Francisco Gupta Social History Tobacco Use Types Packs/Day Years Used Date Smoking Tobacco: Never Assessed Sex Assigned at Date Recorded Not on file documented as of this encounter Plan of Treatment Not on filedocumented as of this encounter Visit Diagnoses Not on filedocumented in this encounter Care Teams Memorial Mason Relationship Specialty Start Date End Date Alisha Kimball MD PCP - General 07/08/[address] [place], [place] [id number] documented as of this encounter
--- OUTSIDE RECORDS SUMMARY | 2022-04-13 07:43 | XMS_ITS | Encounter Summary ---
:1955 [address] [facility] Address [address] [place] [address] Care Team Providers Name Role Phone Luis Pierce MD Primary Care Provider Unavailable Encounter Details Date Type Department Care Team Description 12/12/1998 Office Visit Luis Lozano MD [address] [place] [address] (Wo rk) Social History Tobacco [...] on filedocumented in this encounter Care Teams Hooker Inspector Relationship Specialty Start Date End Date Luis Piecre MD PCP - General 05/27/1998 documented as of this encounter
--- OUTSIDE RECORDS SUMMARY | 2022-04-13 07:43 | XMS_ITS | Encounter Summary ---
:1955 Author Organization [facility] Address [address] [place] [address] Care Team Providers Name Role Phone Alisha [...] on filedocumented in this encounter Care Teams Inspector Heating And Refrigeration Relationship Specialty Start Date End Date Alisha Kimball MD PCP - General 07/08/[address] [place], [place] [id number] documented as of this encounter
--- OUTSIDE RECORDS SUMMARY | 2022-04-13 07:43 | XMS_ITS | Encounter Summary ---
:1955 Author Organization [facility] Address [address], [place] [address] Care Team Providers Name Role Phone Luis Pierce MD Primary Care Provider Unavailable Encounter Details Date Type Department Care Team Description 08/22/1998 Other Services Luis Pierce MD Social History Tobacco Use Types Packs/Day Years Used Date Smoking Tobacco: Never Assessed Sex Assigned at Date Recorded Not on file documented as of this encounter Plan of Treatment Not on filedocumented as of this encounter Visit Diagnoses Diagnosis Excessive or frequent menstruation Female stress incontinence Other and unspecified ovarian cyst documented in this encounter Care Teams Ice Scraper Relationship Specialty Start Date End Date Luis Pierce MD PCP - General 05/27/1998 documented as of this encounter
--- OUTSIDE RECORDS SUMMARY | 2022-04-13 07:43 | XMS_ITS | Encounter Summary ---
:1955 Author Organization [facility] Address [address] [place] [address] Care Team Providers Name Role Phone Luis Pierce MD Primary Care Provider Unavailable Encounter Details Date Type Department Care Team Description 12/12/1998 Orders Only Epic, [place] [address] Social History Tobacco Use Types Packs/Day Years [...] URINE CULTURE ([place]) (12/12/1998 7:06 PM CDT) [facility] Method Time Signature Specimen [facility]rine [facility] Description Special None [facility] Requests Culture No Growth [facility] After 1 Day Report Status Final [facility] Report Status [id number] [facility] Specimen Anatomical Collection Method Collection Time Receive d Time (Source) Location / / Volume Laterality 12/12/1998 7:06 PM 199 9 7:07 CDT PM CDT Narrative [facility] - 12/12/1998 7:06 PM CDT Ordered by [facility] Internal Processing Epic LAB_1 Performing Organization Address City/State/ZIP Code Phon e Number [facility] [phone] [facility] [address] [address] documented in this encounter Visit Diagnoses Not on filedocumented in this encounter Care Teams Child Care Lead Teacher Relationship Specialty Start Date End Date Luis Pierce MD PCP - General 05/27/1998 documented as of this encounter
--- OUTSIDE RECORDS SUMMARY | 2022-04-13 07:43 | XMS_ITS | Encounter Summary ---
:1955 Author Organization [facility] Address [address] [place] [address] Care Team Providers Name Role Phone Luis Pierce MD Primary Care Provider Unavailable Encounter Details Date Type Department Care Team Description 09/03/1998 Office Visit [facility] Pierce rt SURGERY FOLLOW-UP Gynecology MD Cristina [address] [place] [address] Social History Tobacco Use Types [...] four weeks for final postoperative evaluation. cc: EY MAINTAINER documented in this encounter Plan of Treatment Not on filedocumented as of this encounter Visit Diagnoses Diagnosis Follow-up examination following surgery documented in this encounter Care Teams Neurology Technologist Relationship Specialty Start Date End Date Luis Pierce MD PCP - General 05/27/1998 documented as of this encounter
--- OUTSIDE RECORDS SUMMARY | 2022-04-13 07:43 | XMS_ITS | Encounter Summary ---
:1955 Author Organization [facility] Address [address] [place] [address] Care Team Providers Name Role Phone Alisha Kimball MD Primary Care Provider Encounter Details Date Type Department Care Team Description 12/12/1998 Orders Only So Li MD [address] [place], [place] [address] (Wo rk) Social History Tobacco Use Types Packs/Day Years Used Date Smoking Tobacco: Never Assessed Sex Assigned at Date Recorded Not on file documented as of this encounter Plan of Treatment Not on filedocumented as of this encounter Visit Diagnoses Not on filedocumented in this encounter Care Teams Bark Tanner Relationship Specialty Start Date End Date Alisha Kimball MD PCP - General 07/08/[address] [place], [place] [phone] documented as of this encounter
--- OUTSIDE RECORDS SUMMARY | 2022-04-13 07:43 | XMS_ITS | Encounter Summary ---
:1955 Author Organization [facility] Address [address] [place] [address] Care Team Providers Name Role Phone Alisha [...] on filedocumented in this encounter Care Teams Direct Marketing Specialist Relationship Specialty Start Date End Date Alisha Kimball MD PCP - General 07/08/[address] [place], [place] [id number] documented as of this encounter
--- OUTSIDE RECORDS SUMMARY | 2022-04-13 07:43 | XMS_ITS | Encounter Summary ---
:1955 Author Organization [facility] Address [address] [place] [address] Care Team Providers Name Role Phone Luis Pierce MD Primary Care Provider Unavailable Reason for Visit Reason Comments UTI VIA INTERFACE Encounter Details Date Type Department Care Team Description 12/12/1998 [facility] [address] [place] [address] Social History Tobacco Use Types Packs/Day Years Used Date Smoking Tobacco: Never Assessed Sex Assigned at Date Recorded Not on file documented as of this encounter Plan of Treatment Not on filedocumented as of this encounter Visit Diagnoses Diagnosis Urinary tract infection, site not specif ied documented in this encounter Care Teams Show Card Letterer Relationship Specialty Start Date End Date Luis Pierce MD PCP - General 05/27/1998 documented as of this encounter
--- OUTSIDE RECORDS SUMMARY | 2022-04-13 07:43 | XMS_ITS | Encounter Summary ---
:1955 Author Organization [employer] Address [address] [address] Care Team Providers Name Role Phone Luis Pierce MD Primary Care Provider Unavailable Encounter Details Date Type Department Care Team Description 08/17/1998 Office Visit Francisco Gupta MD [address] [place], [place] [address] (Wo rk) Social History [...] the hysterectomy. IN SUMMARY: OTITIS MEDIA cc: ROOM ATTENDANT documented in this encounter Plan of Treatment Not on filedocumented as of this encounter Visit Diagnoses Not on filedocumented in this encounter Care Teams Outdoor Studies Professor Relationship Specialty Start Date End Date Luis Pierce MD PCP - General 05/27/1998 documented as of this encounter
--- OUTSIDE RECORDS SUMMARY | 2022-04-13 07:43 | XMS_ITS | Encounter Summary ---
:1955 Author Organization [facility] Address [address] [place] [address] Care Team Providers Name Role Phone Luis Pierce MD Primary Care Provider Unavailable Encounter Details Date Type Department Care Team Description 12/17/1998 Orders Only Hafsa Lei APRN, CNP [address] [place], [place] [address] (Wo rk) Social History [...] Component Value Ref Test Analysis Performed At [facility] Range Method Time Signature Specimen Urine [facility] Description Special Sensitivity [facility] Requests Culture No Growth [facility] After 1 Day Report Status Final [facility] Report Status [id number] [facility] Specimen Anatomical Collection Method Collection Time Receive d Time (Source) Location / / Volume Laterality 12/17/1998 4:36 PM 9 7:24 CDT PM CDT Emily Lei APRN, CNP LAB_1 Performing Organization Address City/State/ZIP Code Phon e Number [facility] [phone] [facility] [address] [address] documented in this encounter Visit Diagnoses Not on filedocumented in this encounter Care Teams Information Technology Project Manager Relationship Specialty Start Date End Date Luis Pierce MD PCP - General 05/27/1998 documented as of this encounter
--- OUTSIDE RECORDS SUMMARY | 2022-04-13 07:43 | XMS_ITS | Encounter Summary ---
:1955 Author Organization [facility] Address [address] [address] Care Team Providers Name Role Phone Luis Pierce MD Primary Care Provider Unavailable Encounter Details Date Type Department Care Team Description 08/22/1998 Other Services Dar Haas MD [address] [facility] [place] [address] (Wo rk) Social History Tobacco Use Types Packs/Day Years Used Date Smoking Tobacco: Never Assessed Sex Assigned at Date Recorded Not on file documented as of this encounter Plan of Treatment Not on filedocumented as of this encounter Visit Diagnoses Diagnosis Excessive or frequent menstruation documented in this encounter Care Teams Forester Silviculture Relationship Specialty Start Date End Date Luis Pierce MD PCP - General 05/27/1998 documented as of this encounter
--- OUTSIDE RECORDS SUMMARY | 2022-04-13 07:43 | XMS_ITS | Encounter Summary ---
:1955 Author Organization [facility] Address [address] [facility] [place] [address] Care Team Providers Name Role Phone Miky [...] Procedure Name Priority Date/Time Associated Diagnosis Comme [facility] DERMATOPATHOLOGY Routine 01/15/2000 Seborrheic Keratosis Nos Results for this procedure are i n the results section . documented in this encounter Results DERMATOPATHOLOGY (01/15/2000) Component Value Ref Test Analysis Performed At [facility] Method Time [facility] Dermatopathology [facility] DERMATOPATHOLOGY Patient: BENY VERDUGO : 09/11/1937 Med Rec: [id number] Phone: ??-- Date of BX: 01/15/2000 Date Acc: 01/16/2000 Date of DX: 01/20/2000 Physician: NITISH GOTTI MD INTERP: Mat Delgado Mark S. MICRO: ??The specimen shows hyperkeratosis with basaloid epidermal hyperplasia and horn cyst formation typical of a seborrheic keratosis. DIAGNOSIS: ??NECK, LEFT : SEBORRHEIC KERATOSIS SNOMED-T: ??[id number] SNOMED-M: [id number] ICD9-CM: 702.19 {} Specimen (Source) Anatomical Location Collection Method / Collectio n Time Received Time / Laterality Volume 01/15/2000 Nitish Gotti MD PAPS Performing Organization Address City/State/ZIP Code Phon e Number [facility] DERMATOPATHOLOGY [address] [place] [address] documented in this encounter Visit Diagnoses Diagnosis Other seborrheic keratosis documented in this encounter Care Teams In Flight Refueling System Repairer Relationship Specialty Start Date End Date Miky Sultana MD PCP - General 09/21/01 07/07/05 [address] [place] [address] documented as of this encounter
--- OUTSIDE RECORDS SUMMARY | 2022-04-13 07:43 | XMS_ITS | Encounter Summary ---
:1955 Author Organization [facility] Address [address] [place] [address] Care Team Providers Name Role Phone Luis Pierce MD Primary Care Provider Unavailable Encounter Details Date Type Department Care Team Description 08/27/1998 Office Visit [facility] and Gynecology Luis Evans MD FOLLOW-UP [address] [place] [address] Social History Tobacco Use Types [...] removal and repeat wound check. cc: ING MACHINE OPERATOR documented in this encounter Plan of Treatment Not on filedocumented as of this encounter Visit Diagnoses Diagnosis Routine follow-up documented in this encounter Care Teams Frozen Foods Manager Relationship Specialty Start Date End Date Luis Pierce MD PCP - General 05/27/1998 documented as of this encounter
--- OUTSIDE RECORDS SUMMARY | 2022-04-13 07:43 | XMS_ITS | Encounter Summary ---
:1955 Author Organization [facility] Address [address] [place] [address] Care Team Providers Name Role Phone Luis Pierce MD Primary Care Provider Unavailable Encounter Details Date Type Department Care Team Description 09/01/1998 Office Visit Francisco Gupta MD [address] [place], [place] [address] (Wo rk) Social History Tobacco Use [...] of pyelonephritis, follow up as needed. cc: UNTING LECTURER documented in this encounter Plan of Treatment Not on filedocumented as of this encounter Visit Diagnoses Not on filedocumented in this encounter Care Teams Foster Care Social Worker Relationship Specialty Start Date End Date Luis Pierce MD PCP - General 05/27/1998 documented as of this encounter
--- OUTSIDE RECORDS SUMMARY | 2022-04-13 07:43 | XMS_ITS | Encounter Summary ---
:1955 Author Organization [facility] Address [address] [place] [address] Care Team Providers Name Role Phone Luis Pierce MD Primary Care Provider Unavailable Encounter Details Date Type Department Care Team Description 12/30/1998 Office Visit [facility] Emily Burrows, ENURESIS NOS [address] BROKE BEATER OPERATOR, SPECIAL [place] [address] [facility] [phone] [place], [place] [address] (Wo rk) Social History [...] incontinence documented in this encounter Care Teams Cafeteria Attendant Relationship Specialty Start Date End Date Luis Pierce MD PCP - General 05/27/1998 documented as of this encounter
--- OUTSIDE RECORDS SUMMARY | 2022-04-13 07:43 | XMS_ITS | Encounter Summary ---
:1955 Author Organization [facility] Address [address] [place] [address] Care Team Providers Name Role Phone Luis Pierce MD Primary Care Provider Unavailable Encounter Details Date Type Department Care Team Description 09/18/1998 Orders Only Francisco Gupta MD [address] [place], [place] [address] (Wo rk) Social History Tobacco Use Types Packs/Day Years Used Date Smoking Tobacco: Never Assessed Sex Assigned at Date Recorded Not on file documented as of this encounter Plan of Treatment Not on filedocumented as of this encounter Procedures Procedure Name Priority Date/Time Associated Diagnosis Comme nts UA WITH MICRO Routine 09/18/1998 4:33 PM Results for this MICROGRAPHICS SERVICES SUPERVISOR procedure are i n the results section . documented in this encounter Results UA WITH MICRO (09/18/1998 4:33 PM MICROGRAPHICS SERVICES SUPERVISOR) Analysis Performed At Patho logist Time Signature [...] Volume Laterality 09/18/1998 4:33 PM 9 4:34 MICROGRAPHICS SERVICES SUPERVISOR PM MICROGRAPHICS SERVICES SUPERVISOR Francisco Gupta MD LAB_1 Performing Organization Address City/State/ZIP Code Phon e Number [facility] [phone] [address] documented in this encounter Visit Diagnoses Not on filedocumented in this encounter Care Teams Track Repairer Relationship Specialty Start Date End Date Luis Pierce MD PCP - General 05/27/1998 documented as of this encounter
--- OUTSIDE RECORDS SUMMARY | 2022-04-13 07:43 | XMS_ITS | Encounter Summary ---
:1955 Author Organization [facility] Address [address] [place] [address] Care Team Providers Name Role Phone Luis Pierce MD Primary Care Provider Unavailable Encounter Details Date Type Department Care Team Description 09/18/1998 Orders Only Francisco Gupta MD [address] [place], [place] [address] (Wo rk) Social History Tobacco Use Types Packs/Day Years Used Date Smoking Tobacco: Never Assessed Sex Assigned at Date Recorded Not on file documented as of this encounter Plan of Treatment Not on filedocumented as of this encounter Procedures Procedure Name Priority Date/Time Associated Diagnosis Comme nts URINE CULTURE Routine 09/18/1998 4:33 PM Results for this HARDBOARD PRESS OPERATOR procedure are i n the results section . documented in this encounter Results URINE CULTURE (MIDSTREAM) (09/18/1998 4:33 PM HARDBOARD PRESS OPERATOR) [facility] Method Time Signature Specimen Urine [facility] Description Special None [facility] Requests Culture No Growth [facility] After 1 Day Report Status Final [facility] Report Status [id number] [facility] Specimen Anatomical Collection Method Collection Time Receive d Time (Source) Location / / Volume Laterality 09/18/1998 4:33 PM 9 4:34 HARDBOARD PRESS OPERATOR PM HARDBOARD PRESS OPERATOR Francisco Gupta MD LAB_1 Performing Organization Address City/State/ZIP Code Phon e Number [facility] [phone] [facility] [address] [address] documented in this encounter Visit Diagnoses Not on filedocumented in this encounter Care Teams Billiard Table Mechanic Relationship Specialty Start Date End Date Luis Pierce MD PCP - General 05/27/1998 documented as of this encounter
--- OUTSIDE RECORDS SUMMARY | 2022-04-13 07:43 | XMS_ITS | Encounter Summary ---
:1955 Author Organization [facility] Address [address] [place] [address] Care Team Providers Name Role Phone Luis [...] 09/30/1998 11:03 AM Res ults for this SHINGLES ROOFER procedure are i n the results section. documented in this encounter Results (ABNORMAL) HEMOGLOBIN, BLOOD (09/30/1998 11:03 AM SHINGLES ROOFER) [facility] Method Time Signature Hemoglobin 11.9 (L) 12.0 - [facility] 16.0 g/dl Hemoglobin Result [facility] Checked Specimen Anatomical Collection Method Collection Time Receive d Time (Source) Location / / Volume Laterality 09/30/1998 11:03 09/30/1998 AM SHINGLES ROOFER 11:04 AM SHINGLES ROOFER Luis Pierce MD LAB_1 Performing Organization Address City/State/ZIP Code Phon e Number [facility] [phone] [facility] [address] [address] documented in this encounter Visit Diagnoses Not on filedocumented in this encounter Care Teams Playroom Attendant Relationship Specialty Start Date End Date Luis Pierce MD PCP - General 05/27/1998 documented as of this encounter
--- OUTSIDE RECORDS SUMMARY | 2022-04-13 07:43 | XMS_ITS | Encounter Summary ---
:1955 Author Organization [facility] Address [address] [place] [address] Care Team Providers Name Role Phone Luis Pierce MD Primary Care Provider Unavailable Reason for Visit Reason Comments BACK PAIN VIA INTERFACE Encounter Details Date Type Department Care Team Description 12/18/1999 Office Visit [facility] Michele ury LOW BACK PAIN(ACUTE)<6 WEEKS ; [address] [place] [address] Social History Tobacco Use Types [...] no bacteria. A: Low back pain. P: Chvd-iuj-[id number] ibuprofen 800 mg three times a day. [...] examination documented in this encounter Care Teams Cloth Finishing Range Back Tender Relationship Specialty Start Date End Date Luis Pierce MD PCP - General 05/27/1998 documented as of this encounter
--- OUTSIDE RECORDS SUMMARY | 2022-04-13 07:43 | XMS_ITS | Encounter Summary ---
:1955 Author Organization [facility] Address [address] [address] Care Team Providers Name Role Phone Luis Pierce MD Primary Care Provider Unavailable Reason for Visit Reason Comments COUGH VIA INTERFACE Encounter Details Date Type Department Care Team Description 08/27/1999 Office Visit [facility] Miky Salinas MD BRONCHITIS NOS [address] [place] [address] [place] [id number] (Wo rk) Social History Tobacco Use Types Packs/Day Years Used Date Smoking Tobacco: Never Assessed Sex Assigned at Date Recorded Not on file documented as of this encounter Progress Notes Miky Sultana - 08/27/1999 12:00 AM CSTS: The patient complains of cough and cold for one and a half weeks. The cough is keeping her up at night. Other than the cough she is actually feeling a bit better. Started out with a sore throat and nasal congestion. Her cough has been somewhat productive and she has noted no significant shortness of breath or wheezing. She has no history of asthma and she does not smoke. O: Weight is 180 pounds. Blood pressure is 130/98. Temperature is 97.0. The patient is in no distress. Ears, nose and throat exam is negative. Neck no adenopathy. Chest-lungs are clear with no wheezing or rales present. She has a frequent tight sounding cough, however. A: Persistent viral bronchitis. P: The patient was given guaifenesin with codeine to use for the nighttime cough. Humidity and rest were also recommended. She will follow up if there is no improvement into early next week. cc: HEATER OPERATOR documented in this encounter Plan of Treatment Not on filedocumented as of this encounter Visit Diagnoses Diagnosis Bronchitis, not specified as acute or ch ronic documented in this encounter Care Teams Embroidery Patternmaker Relationship Specialty Start Date End Date Luis Pierce MD PCP - General 05/27/1998 documented as of this encounter
--- OUTSIDE RECORDS SUMMARY | 2022-04-13 07:43 | XMS_ITS | Encounter Summary ---
:1955 Author Organization [facility] Address [address] [place] [address] Care Team Providers Name Role Phone Luis Pierce MD Primary Care Provider Unavailable Encounter Details Date Type Department Care Team Description 08/19/1998 Orders Only Luis Pierce MD Social History Tobacco Use Types Packs/Day Years Used Date Smoking Tobacco: Never Assessed Sex Assigned at Date Recorded Not on file documented as of this encounter Plan of Treatment Not on filedocumented as of this encounter Procedures Procedure Name Priority Date/Time Associated Diagnosis Comme nts HEMOGLOBIN, BLOOD Waiting 08/19/1998 9:37 AM Resu lts for this LEAD ESTHETICIAN procedure are i n the results section. PHONED RESULTS Routine 08/19/1998 9:37 AM Results for this LEAD ESTHETICIAN procedure are i n the results section. documented in this encounter Results PHONED RESULTS (08/19/1998 9:37 AM LEAD ESTHETICIAN) [facility] Method Time Signature Phoned HGB called to Meaghan Guerrero ([facility]) at [facility] Results [id number] on [id number] Specimen Anatomical Collection Method Collection Time Receive d Time (Source) Location / / Volume Laterality 08/19/1998 9:37 AM 9 9:38 LEAD ESTHETICIAN AM LEAD ESTHETICIAN Luis Pierce MD LAB_1 Performing Organization Address City/State/ZIP Code Phon e Number [facility] [phone] [address] (ABNORMAL) HEMOGLOBIN, BLOOD (08/19/1998 9:37 AM LEAD ESTHETICIAN) [facility] Method Time Signature Hemoglobin 7.7 (L) 12.0 - [facility] 16.0 g/dl Hemoglobin Result [facility] Checked Specimen Anatomical Collection Method Collection Time Receive d Time (Source) Location / / Volume Laterality 08/19/1998 9:37 AM 9 9:38 LEAD ESTHETICIAN AM LEAD ESTHETICIAN Luis Pierce MD LAB_1 Performing Organization Address City/State/ZIP Code Phon e Number [facility] [phone] [facility] [address] [address] documented in this encounter Visit Diagnoses Not on filedocumented in this encounter Care Teams Senior Power Scheduler Relationship Specialty Start Date End Date Luis Pierce MD PCP - General 05/27/1998 documented as of this encounter
--- OUTSIDE RECORDS SUMMARY | 2022-04-13 07:43 | XMS_ITS | Encounter Summary ---
:1955 Author Organization [facility] Address [address] [place] [address] Care Team Providers Name Role Phone Luis Pierce MD Primary Care Provider Unavailable Encounter Details Date Type Department Care Team Description 09/01/1998 Office Visit Deepthi Ashraf M D NONSPECIF SKIN ERUPT NEC [address] [place], [place] [address] (Wo rk) Social History Tobacco Use Types Packs/Day Years Used Date Smoking Tobacco: Never Assessed Sex Assigned at Date Recorded Not on file documented as of this encounter Plan of Treatment Not on filedocumented as of this encounter Visit Diagnoses Diagnosis Rash and other nonspecific skin eruption documented in this encounter Care Teams Medical Clinic Manager Relationship Specialty Start Date End Date Luis Pierce MD PCP - General 05/27/1998 documented as of this encounter
--- OUTSIDE RECORDS SUMMARY | 2022-04-13 07:43 | XMS_ITS | Encounter Summary ---
:1955 [facility] Address [address] [place] [address] Care Team Providers Name Role Phone Alisha Kimball MD Primary Care Provider Encounter Details Date Type Department Care Team Description 08/27/1999 Orders Only Miky Sultana MD [address] [facility] [place] [address] (Wo rk) Social History Tobacco Use Types Packs/Day Years Used Date Smoking Tobacco: Never Assessed Sex Assigned at Date Recorded Not on file documented as of this encounter Plan of Treatment Not on filedocumented as of this encounter Visit Diagnoses Not on filedocumented in this encounter Care Teams Confidential Investigator Relationship Specialty Start Date End Date Alisha Kimball MD PCP - General 07/08/05 [address] [place], [place] [id number] documented as of this encounter
--- OUTSIDE RECORDS SUMMARY | 2022-04-13 07:43 | XMS_ITS | Encounter Summary ---
:1955 Author Organization [facility] Address [address] [place] [address] Care Team Providers Name Role Phone Luis Pierce MD Primary Care Provider Unavailable Encounter Details Date Type Department Care Team Description 12/12/1998 Orders Only Epic, [place] [address] Social History Tobacco Use Types Packs/Day Years Used Date Smoking Tobacco: Never Assessed Sex Assigned at Date Recorded Not on file documented as of this encounter Plan of Treatment Not on filedocumented as of this encounter Procedures Procedure Name Priority Date/Time Associated Diagnosis Comme nts URINE CULTURE IF Waiting 12/12/1998 6:29 PM Resul ts for this CDT procedure are i n the results section. UA WITH MICRO Waiting 12/12/1998 6:29 PM Results for this CDT procedure are i n the results section. documented in this encounter Results URINE CULTURE IF (12/12/1998 6:29 PM CDT) [facility] Method Time Signature Urine Cult If UC Not [facility] Indicated Specimen Anatomical Collection Method Collection Time Receive d Time (Source) Location / / Volume Laterality 12/12/1998 6:29 PM 9 6:30 CDT PM CDT Narrative [facility] - 12/12/1998 6:29 PM CDT Ordered by [facility] Internal Processing Epic LAB_1 Performing Organization Address City/State/ZIP Code Phon e Number [facility] [phone] [facility] [address] [address] UA WITH MICRO (12/12/1998 6:29 PM CDT) Analysis Performed At Patho logist [...] 0-2 0 - 5 /hpf [facility] Epith, Few /hpf [facility] Squamous Bact 0 [facility] Casts 0 /lpf [facility] Specimen Anatomical Collection Method Collection Time Receive d Time (Source) Location / / Volume Laterality 12/12/1998 6:29 PM 199 9 6:30 CDT PM CDT Narrative [facility] - 12/12/1998 6:29 PM CDT Ordered by [facility] Internal Processing Epic LAB_1 Performing Organization Address City/State/ZIP Code Phon e Number [facility] [phone] [facility] [address] [address] documented in this encounter Visit Diagnoses Not on filedocumented in this encounter Care Teams Candy Packer Relationship Specialty Start Date End Date Luis Pierce MD PCP - General 05/27/1998 documented as of this encounter
--- OUTSIDE RECORDS SUMMARY | 2022-04-13 07:43 | XMS_ITS | Encounter Summary ---
:1955 Author Organization [facility] Address [address] [place] [address] Care Team Providers Name Role Phone Luis Pierce MD Primary Care Provider Unavailable Encounter Details Date Type Department Care Team Description 08/30/1998 Office Visit Francisco Gupta MD UTI [address] [place], [place] [address] (Wo rk) Social History Tobacco Use Types Packs/Day Years Used Date Smoking Tobacco: Never Assessed Sex Assigned at Date Recorded Not on file documented as of this encounter Plan of Treatment Not on filedocumented as of this encounter Visit Diagnoses Diagnosis Urinary tract infection, site not specif ied documented in this encounter Care Teams Clinical Biochemical Geneticist Relationship Specialty Start Date End Date Luis Pierce MD PCP - General 05/27/1998 documented as of this encounter
--- OUTSIDE RECORDS SUMMARY | 2022-04-13 07:44 | XMS_ITS | Encounter Summary ---
:1955 Author Organization [facility] Address [address] [place] [address] Care Team Providers Name Role Phone Miky Sultana MD Primary Care Provider Encounter Details Date Type Department Care Team Description 03/26/1998 Office Visit Luis Pierce MD Social History Tobacco Use Types Packs/Day Years Used Date Smoking Tobacco: Never Assessed Sex Assigned at Date Recorded Not on file documented as of this encounter Progress Notes Luis Pierce - 03/26/1998 12:00 AM CDTS: Pt is a 43 y/o multiparous female who presents for menometrorrhagia. She has a longstanding history of heavy vaginal bleeding i.e. menorrhagia. This was initially treated with oral contraceptives, but most recently had to discontinue this because of elevated blood pressures. She has since that time had increasing problems again with heavy bleeding. Her most recent episode in February was that of three weeks of heavy bleeding requiring changing a pad one q.hour. Recently she has been on no medications. Options were discussed and it was agreed upon that she would undergo an endometrial aspirate. This was performed under sterile conditions using 10 cc of 1% Lidocaine for a paracervical block. The uterus sounded to 10-11 cms. A moderate to large amount of tissue was obtained, and procedure itself was deemed technically satisfactory. Procedure itself was well tolerated and there were no complications. A: Perimenopausal bleeding with menometrorrhagia. P: Pt will call for follow-up test results x 6 days. She will during that interim schedule herself for a mammogram as well as for routine annual examination. cc: documented in this encounter Plan of Treatment Not on filedocumented as of this encounter Procedures Procedure Name Priority Date/Time Associated Diagnosis Comme nts CLINICAL PATH, Routine 03/26/1998 4:53 PM Results for this OTHER CDT procedure are i n the results section. documented in this encounter Results PATHOLOGY (03/26/1998 4:53 PM CDT) [facility] gist Method Time Signature Source/Site Endo [facility] Aspirate Report Status See Separate [facility] Report Specimen Anatomical Collection Method Collection Time Receive d Time (Source) Location / / Volume Laterality 03/26/1998 4:53 PM 8 4:54 CDT PM CDT Luis Pierce MD LAB_1 Performing Organization Address City/State/ZIP Code Phon e Number [facility] [phone] [facility] [address] [place] [address] documented in this encounter Visit Diagnoses Not on filedocumented in this encounter Care Teams Spring Tacker Relationship Specialty Start Date End Date Miky Sultana MD PCP - General 06/17/1996 05/26/1998 [address] [place] [address] documented as of this encounter
--- OUTSIDE RECORDS SUMMARY | 2022-04-13 07:44 | XMS_ITS | Encounter Summary ---
:1955 Author Organization [facility] Address [address] [facility] [place] [address] Care Team Providers Name Role Phone Luis Pierce MD Primary Care Provider Unavailable Encounter Details Date Type Department Care Team Description 10/12/1995 Office Visit Miky Sultana MD [address] [facility] [place] [address] (Wo rk) Social History Tobacco Use Types [...] on filedocumented in this encounter Care Teams J2Ee Architect Relationship Specialty Start Date End Date Luis Pierce MD PCP - General 05/27/1998 documented as of this encounter
--- OUTSIDE RECORDS SUMMARY | 2022-04-13 07:44 | XMS_ITS | Encounter Summary ---
:1955 Author Organization [facility] Address [address] [address] Care Team Providers Name Role Phone Alisha Kimball MD Primary Care Provider Encounter Details Date Type Department Care Team Description 06/07/1995 Orders Only Miky Sultana MD [address] [facility] [address] [facility] [place] [address] (Wo rk) Social History Tobacco Use Types Packs/Day Years Used Date Smoking Tobacco: Never Assessed Sex Assigned at Date Recorded Not on file documented as of this encounter Plan of Treatment Not on filedocumented as of this encounter Visit Diagnoses Not on filedocumented in this encounter Care Teams Inserting Press Operator Relationship Specialty Start Date End Date Alisha Kimball MD PCP - General 07/08/05 [address] [place] [id number] documented as of this encounter
--- OUTSIDE RECORDS SUMMARY | 2022-04-13 07:44 | XMS_ITS | Encounter Summary ---
:1955 Author Organization [facility] Address [address] [place] [address] Care Team Providers Name Role Phone Luis Pierce MD Primary Care Provider Unavailable Encounter Details Date Type Department Care Team Description 07/16/1998 Office Visit [facility] EMILY Pierce MENSTRUATION; and Gynecology Luis Evans MD FEMALE STRESS INCONTINENCE [address] [place] [address] Social History Tobacco Use Types [...] time of her outpatient work up. cc: WRAPPER documented in this encounter Plan of Treatment Not on filedocumented as of this encounter Visit Diagnoses Diagnosis Excessive or frequent menstruation Female stress incontinence documented in this encounter Care Teams Abrasive Grinder Relationship Specialty Start Date End Date Luis Pierce MD PCP - General 05/27/1998 documented as of this encounter
--- OUTSIDE RECORDS SUMMARY | 2022-04-13 07:44 | XMS_ITS | Encounter Summary ---
:1955 Author Organization [facility] Address [address] [address] Care Team Providers Name Role Phone Luis [...] bleeding documented in this encounter Care Teams Asset Accountant Relationship Specialty Start Date End Date Luis Pierce MD PCP - General 05/27/1998 documented as of this encounter
--- OUTSIDE RECORDS SUMMARY | 2022-04-13 07:44 | XMS_ITS | Encounter Summary ---
:1955 Author Organization [facility] Address [address] [place] [address] Care Team Providers Name Role Phone Alisha [...] on filedocumented in this encounter Care Teams Manufacturing Maintenance Mechanic Relationship Specialty Start Date End Date Alisha Kimball MD PCP - General 07/08/[address] [place], [place] [id number] documented as of this encounter
--- OUTSIDE RECORDS SUMMARY | 2022-04-13 07:44 | XMS_ITS | Encounter Summary ---
:1955 Author Organization [facility] Address [address] [address] Care Team Providers Name Role Phone Luis Pierce MD Primary Care Provider Unavailable Encounter Details Date Type Department Care Team Description 01/08/1997 Office Visit Miky Sultana MD [address] [facility] [address] (Wo rk) Social History Tobacco Use Types [...] on filedocumented in this encounter Care Teams Maintenance Repairman Relationship Specialty Start Date End Date Luis Pierce MD PCP - General 05/27/1998 documented as of this encounter
--- OUTSIDE RECORDS SUMMARY | 2022-04-13 07:44 | XMS_ITS | Encounter Summary ---
:1955 Author Organization [facility] Address [address] [place] [address] Care Team Providers Name Role Phone Luis [...] on filedocumented in this encounter Care Teams Freight Weigher Relationship Specialty Start Date End Date Luis Pierce MD PCP - General 05/27/1998 documented as of this encounter
--- OUTSIDE RECORDS SUMMARY | 2022-04-13 07:44 | XMS_ITS | Encounter Summary ---
:1955 Author Organization [facility] Address [address] [place] [address] Care Team Providers Name Role Phone Luis [...] Routine 07/16/1998 4:03 PM Results for this HEARING CONSULTANT procedure are i n the results section . documented in this encounter Results URINE CULTURE (MIDSTREAM) (07/16/1998 4:03 PM HEARING CONSULTANT) [facility] Method Time Signature Specimen Urine [facility] Description Cath/Bladder Special None [facility] Requests Culture No Growth [facility] After 2 Days Report Status Final [facility] Report Status [id number] [facility] Specimen Anatomical Collection Method Collection Time Receive d Time (Source) Location / / Volume Laterality 07/16/1998 4:03 PM 9 4:03 HEARING CONSULTANT PM HEARING CONSULTANT Luis Pierce MD LAB_1 Performing Organization Address City/State/ZIP Code Phon e Number [facility] [phone] [address] documented in this encounter Visit Diagnoses Not on filedocumented in this encounter Care Teams Laundry Helper Relationship Specialty Start Date End Date Luis Pierce MD PCP - General 05/27/1998 documented as of this encounter
--- OUTSIDE RECORDS SUMMARY | 2022-04-13 07:44 | XMS_ITS | Encounter Summary ---
:1955 Author Organization [employer] Address [address] [place], [place] [address] [place] [address] Care Team Providers Name Role Phone Luis Pierce MD Primary Care Provider Unavailable Encounter Details Date Type Department Care Team Description 10/27/1995 Orders Only Miky Sultana MD [address] [facility] [place] [address] (Wo rk) Social History Tobacco Use Types Packs/Day Years Used Date Smoking Tobacco: Never Assessed Sex Assigned at Date Recorded Not on file documented as of this encounter Procedure Notes Froy Hudson MD - 10/27/1995 12:00 AM CDTAssociated Order(s): MAMMOGRAM, SCREENING ORDERING PHYSICIAN CLINICAL DATA: SCREEN MAMMO INTERPRETATION: BILATERAL MAMMOGRAM - 10/27/95: INDICATION: Screening evaluation. Comparison: 07/02/94. Largely fatty replaced breasts are negative. No nodule or microcalcification is seen. IMPRESSION: Negative mammogram, unchanged from previous study. ACR BIRADS CATEGORY 1 - NEGATIVE MAMMOGRAM Froy Hudson MD cc: Radiology SP Miky Sultana MD documented in this encounter Plan of Treatment Not on filedocumented as of this encounter Procedures Procedure Name Priority Date/Time Associated Diagnosis Comme nts MAMMOGRAM, 10/27/1995 12:00 AM Results for this SCREENING CDT procedure are i n the results section. documented in this encounter Results MAMMOGRAM, SCREENING (10/27/1995 12:00 AM CDT) Anatomical Region Laterality Modality Breast Other Specimen (Source) Anatomical Location Collection Method / Collectio n Time Received Time / Laterality Volume 10/27/1995 Transcriptions Froy Hudson MD - 10/27/1995 12:00 AM CDTORDERING PHYSICIAN CLINICAL DATA: SCREEN MAMMO INTERPRETATION: BILATERAL MAMMOGRAM - : INDICATION: Screening evaluation. Comparison: 07/02/94. Largely fatty replaced breasts are negat clarke. No nodule or microcalcification is seen. IMPRESSION: Negative mammogram, unchange d from previous study. ACR BIRADS CATEGORY 1 - NEGATIVE MAMMOGR AM Froy Hudson MD cc: Radiology SP Miky Sultana MD Miky Sultana MD RAD_BI documented in this encounter Visit Diagnoses Not on filedocumented in this encounter Care Teams Milk Hauler Relationship Specialty Start Date End Date Luis Pierce MD PCP - General 05/27/1998 documented as of this encounter
--- OUTSIDE RECORDS SUMMARY | 2022-04-13 07:44 | XMS_ITS | Encounter Summary ---
:1955 Author Organization [facility] Address [address] [address] Care Team Providers Name Role Phone Miky Sultana MD Primary Care Provider Encounter Details Date Type Department Care Team Description 10/05/1997 Notes/Orders Social History Tobacco Use Types Packs/Day Years Used Date Smoking Tobacco: Never Assessed Sex Assigned at Date Recorded Not on file documented as of this encounter Plan of Treatment Not on filedocumented as of this encounter Procedures Procedure Name Priority Date/Time Associated Diagnosis Comme nts STREP GRP A, RAPID Waiting 10/05/1997 11:05 AM Re sults for this SCREEN GAUGE OPERATOR procedure are i n the results section. documented in this encounter Results RAPID, GPA STREP SCREEN (WAITING) (10/05/1997 11:05 AM GAUGE OPERATOR) [facility] Method Time Signature Patient Home [id number] [employer] [facility] Phone # Patient Work [phone] [employer] [facility] Phone # Grp A Rapid Negative [facility] Screen Grp A Culture Negative [facility] Final Specimen Anatomical Collection Method Collection Time Receive d Time (Source) Location / / Volume Laterality 10/05/1997 11:05 10/05/1997 AM GAUGE OPERATOR 11:06 AM GAUGE OPERATOR Wy Nursing Rn LAB_1 Performing Organization Address City/State/ZIP Code Phon e Number [facility] [phone] [facility] [address] [place] [phone] documented in this encounter Visit Diagnoses Not on filedocumented in this encounter Care Teams Oracle Fusion Middleware Architect Relationship Specialty Start Date End Date Miky Sultana MD PCP - General 06/17/1996 05/26/1998 [address] [place] [address] documented as of this encounter
--- OUTSIDE RECORDS SUMMARY | 2022-04-13 07:44 | XMS_ITS | Encounter Summary ---
:1955 Author Organization [facility] Address [address] [place] [address] Care Team Providers Name Role Phone Luis Pierce MD Primary Care Provider Unavailable Encounter Details Date Type Department Care Team Description 06/07/1995 Office Visit Miky Sultana MD [address] [facility] [place] [address] (Wo rk) Social History Tobacco Use Types [...] is no improvement within 10 days. cc: AVER TIRE MOLD documented in this encounter Plan of Treatment Not on filedocumented as of this encounter Visit Diagnoses Not on filedocumented in this encounter Care Teams Pit Laborer Relationship Specialty Start Date End Date Luis Pierce MD PCP - General 05/27/1998 documented as of this encounter
--- OUTSIDE RECORDS SUMMARY | 2022-04-13 07:44 | XMS_ITS | Encounter Summary ---
:1955 Author Organization [facility] Address [address] [place] [address] Care Team Providers Name Role Phone Miky Sultana MD Primary Care Provider Encounter Details Date Type Department Care Team Description 05/13/1998 Office Visit [facility] Pierce GIAmber EXAMINATION; and Gynecology Luis Evans MD EXCESSIVE MENSTRUATION; [address] [place]; [place] [address] FEMALE STRESS INCONTINENCE [phone] Social History Tobacco Use Types Packs/Day Years [...] be undertaken for her urinary incontinence. cc: SEWER documented in this encounter Plan of Treatment Not on filedocumented as of this encounter Visit Diagnoses Diagnosis Gynecological examination Excessive or frequent menstruation Metrorrhagia Female stress incontinence documented in this encounter Care Teams Lead Painter Relationship Specialty Start Date End Date Miky Sultana MD PCP - General 06/17/1996 05/26/1998 [place] [address] documented as of this encounter
--- OUTSIDE RECORDS SUMMARY | 2022-04-13 07:44 | XMS_ITS | Encounter Summary ---
:1955 Author Organization [facility] Address [address] [place] [address] Care Team Providers Name Role Phone Luis Pierce MD Primary Care Provider Unavailable Encounter Details Date Type Department Care Team Description 06/10/1995 Office Visit Miky Sultana MD [address] [facility] [place] [address] (Wo rk) Social History Tobacco Use Types [...] She will follow up as needed. cc: ER'S LICENSE REVIEWING OFFICER documented in this encounter Plan of Treatment Not on filedocumented as of this encounter Visit Diagnoses Not on filedocumented in this encounter Care Teams Director Of Solutions Architecture Relationship Specialty Start Date End Date Luis Pierce MD PCP - General 05/27/1998 documented as of this encounter
--- OUTSIDE RECORDS SUMMARY | 2022-04-13 07:44 | XMS_ITS | Encounter Summary ---
:1955 Author Organization [facility] Address [address] [address] Care Team Providers Name Role Phone Luis Pierce MD Primary Care Provider Unavailable Encounter Details Date Type Department Care Team Description 03/12/1997 Office Visit Miky Sultana MD [address] [facility] [address] (Wo rk) Social History Tobacco Use Types [...] filedocumented in this encounter Care Teams Certified Nurses' Aide Relationship Specialty Start Date End Date Luis Pierce MD PCP - General 05/27/1998 documented as of this encounter
--- OUTSIDE RECORDS SUMMARY | 2022-04-13 07:44 | XMS_ITS | Encounter Summary ---
:1955 Author Organization [facility] Address [address] [place] [address] Care Team Providers Name Role Phone Alisha Kimball MD Primary Care Provider Encounter Details Date Type Department Care Team Description 01/26/1995 Orders Only Miky Sultana MD [address] [facility] [place] [address] (Wo rk) Social History Tobacco Use Types Packs/Day Years Used Date Smoking Tobacco: Never Assessed Sex Assigned at Date Recorded Not on file documented as of this encounter Plan of Treatment Not on filedocumented as of this encounter Visit Diagnoses Not on filedocumented in this encounter Care Teams Laborer Sawmill Relationship Specialty Start Date End Date Alisha Kimball MD PCP - General 07/08/05 [address] [place], [place] [id number] documented as of this encounter
--- OUTSIDE RECORDS SUMMARY | 2022-04-13 07:44 | XMS_ITS | Encounter Summary ---
:1955 Author Organization [facility] Address [address] [place] [address] Care Team Providers Name Role Phone Alisha [...] on filedocumented in this encounter Care Teams Vp Organizational Development Relationship Specialty Start Date End Date Alisha Kimball MD PCP - General 07/08/[address] [place], [place] [id number] documented as of this encounter
--- OUTSIDE RECORDS SUMMARY | 2022-04-13 07:44 | XMS_ITS | Encounter Summary ---
:1955 Author Organization [facility] Address [address] [place] [address] Care Team Providers Name Role Phone Alisha Kimball MD Primary Care Provider Encounter Details Date Type Department Care Team Description 10/06/1994 Orders Only Miky Sultana MD [address] [facility] [place] [address] (Wo rk) Social History Tobacco Use Types Packs/Day Years Used Date Smoking Tobacco: Never Assessed Sex Assigned at Date Recorded Not on file documented as of this encounter Plan of Treatment Not on filedocumented as of this encounter Visit Diagnoses Not on filedocumented in this encounter Care Teams Chief Load Dispatcher Relationship Specialty Start Date End Date Alisha Kimball MD PCP - General 07/08/05 [address] [place], [place] [id number] documented as of this encounter
--- OUTSIDE RECORDS SUMMARY | 2022-04-13 07:44 | XMS_ITS | Encounter Summary ---
:1955 Author Organization [facility] Address [address] [place] [address] Care Team Providers Name Role Phone Luis Pierce MD Primary Care Provider Unavailable Encounter Details Date Type Department Care Team Description 10/17/1996 Office Visit Miky Sultana MD [address] [facility] [place] [address] (Wo rk) Social History Tobacco Use Types [...] on filedocumented in this encounter Care Teams Automatic Glove Former Relationship Specialty Start Date End Date Luis Pierce MD PCP - General 05/27/1998 documented as of this encounter
--- OUTSIDE RECORDS SUMMARY | 2022-04-13 07:45 | XMS_ITS | Encounter Summary ---
:1955 Author Organization [facility] Address [address], [place] [address] Care Team Providers Name Role Phone Luis Pierce MD Primary Care Provider Unavailable Encounter Details Date Type Department Care Team Description 05/15/1994 Office Visit Francisco Albarran MD [address] [place], [place] [address] (Wo rk) Social History [...] was reassured and we'll treat symptomatically. cc: OR TECHNICAL RECRUITER documented in this encounter Plan of Treatment Not on filedocumented as of this encounter Visit Diagnoses Not on filedocumented in this encounter Care Teams Cabinetmaker Supervisor Relationship Specialty Start Date End Date Luis Pierce MD PCP - General 05/27/1998 documented as of this encounter
--- OUTSIDE RECORDS SUMMARY | 2022-04-13 07:45 | XMS_ITS | Encounter Summary ---
:1955 Author Organization [facility] Address [address] [place] [address] Care Team Providers Name Role Phone Luis Pierce MD Primary Care Provider Unavailable Encounter Details Date Type Department Care Team Description 06/01/1994 Office Visit Miky Sultana MD [address] [facility] [place] [address] (Wo rk) Social History Tobacco Use Types [...] sooner if she has her problems. cc: ET SUPERINTENDENT documented in this encounter Plan of Treatment Not on filedocumented as of this encounter Visit Diagnoses Not on filedocumented in this encounter Care Teams Gymnastics Coach Relationship Specialty Start Date End Date Luis Pierce MD PCP - General 05/27/1998 documented as of this encounter
--- OUTSIDE RECORDS SUMMARY | 2022-04-13 07:45 | XMS_ITS | Encounter Summary ---
:1955 Author Organization [facility] Address [address] [place] [address] Care Team Providers Name Role Phone Luis Pierce MD Primary Care Provider Unavailable Encounter Details Date Type Department Care Team Description 07/02/1994 Orders Only Miky Sultana MD [address] [facility] [place] [address] (Wo rk) Social History Tobacco Use Types Packs/Day Years Used Date Smoking Tobacco: Never Assessed Sex Assigned at Date Recorded Not on file documented as of this encounter Plan of Treatment Not on filedocumented as of this encounter Results MAMMOGRAM, BILATERAL DIAGNOSTI (07/02/1994 12:00 AM CASTER OPERATOR) Anatomical Region Laterality Modality Breast Other Specimen (Source) Anatomical Location Collection Method / Collectio n Time Received Time / Laterality Volume 07/02/1994 Miky Sultana MD RAD_BI documented in this encounter Visit Diagnoses Not on filedocumented in this encounter Care Teams Silk Finisher Relationship Specialty Start Date End Date Luis Pierce MD PCP - General 05/27/1998 documented as of this encounter
[2022-04-13 09:44] LABS: Creatinine Urine 67.1 mg/dL
[2022-04-13 09:46] LABS: Microalbumin Creatinine Ratio 10 mg/g (0-30); Microalbumin Urine 1 mg/dL
== END 2022-04-13 07:26 | disposition home or self-care (01) ==
PROVIDERS: PCP Family Medicine; Visit Provider Family Medicine
DX: E11.9 Type 2 diabetes mellitus without complications (principal); N17.9 Acute kidney failure, unspecified; I10 Essential (primary) hypertension; E78.5 Hyperlipidemia, unspecified; Z79.01 Long term (current) use of anticoagulants
CPT/HCPCS: 82043; 82570

== ENCOUNTER 2022-05-29 13:26 | Outpatient (CLI) | payer OTHER, SELFPAY ==
--- OUTSIDE RECORDS SUMMARY | 2022-05-29 13:29 | XMS_ITS | Encounter Summary ---
:1955 Author Organization [facility] Address [address] [address] Care Team Providers Name Role Phone Alisha Kimball MD Primary Care Provider Reason for Visit Reason Comments Dental Hygiene none Encounter Details Date Type Department Care Team Description 10/16/2021 Office Visit [facility] Addie Gonzalez ental Hygiene (none) Dentistry A, [facility] [address] [address] [phone] (Wo rk) Social History Tobacco Use Types [...] agreement with Josue Kerns DDS (License #: [id number]) CHART REVIEW: Reviewed with patient: Medical history, [...] documented in this encounter Plan of Treatment Upcoming Encounters Date Type Specialty Care Team Description 06/09/2022 Appointment General Dentistry Elaine Garcia [facility] [address] [place], [place] [phone] (Wo rk) documented as of this encounter Procedures Procedure Name Priority Date/Time Associated Diagnosis Comme nts PROPHYLAXIS-ADULT Routine 10/16/2021 9:20 AM CDT Chronic perio dontitis, RECALL localized, slight documented in this encounter Visit Diagnoses Diagnosis Chronic periodontitis, localized, slight - Primary documented in this encounter Care Teams Client Application Support Specialist Relationship Specialty Start Date End Date Alisha Kimball MD PCP - General 07/08/05 [address] [place] [address] documented as of this encounter
--- OUTSIDE RECORDS SUMMARY | 2022-05-29 13:29 | XMS_ITS | Encounter Summary ---
:1955 Author Organization [employer] Address [address] [place] [address] Care Team Providers Name Role Phone Alisha Kimball MD Primary Care Provider Encounter Details Date Type Department Care Team Description 08/16/2020 [facility]ticoagulation [facility] er [address] [facility] [address] [place] [address] [address] [place], [place] [address] [phone] Social History Tobacco Use Types Packs/Day Years Used Date Smoking Tobacco: Never Smokeless Tobacco: Never Alcohol Use Standard Drinks/Week Comments No 0 (1 standard drink = 0.6 oz pure alcoho l) Sex Assigned at Date Recorded Not on file documented as of this encounter Plan of Treatment Upcoming Encounters Date Type Specialty Care Team Description 06/09/2022 Appointment General Dentistry Elaine Garcia, [facility] [address] [place], [place] [phone] (Wo rk) documented as of this encounter Visit Diagnoses Not on filedocumented in this encounter Care Teams Clinical Research Nurse Relationship Specialty Start Date End Date Alisha Kimball MD PCP - General 07/08/[address] [place], [place] [phone] documented as of this encounter
--- OUTSIDE RECORDS SUMMARY | 2022-05-29 13:29 | XMS_ITS | Encounter Summary ---
:1955 Author Organization [employer] Address [address] [place] [address] Care Team Providers Name Role Phone Alisha Kimball MD Primary Care Provider Encounter Details Date Type Department Care Team Description 01/03/2020 Lab Visit [facility] Type 2 diabetes mellitus [address] [facility] without complication, [place], [place] [address] without long-term current [phone] use of insulin (HRC) Social History Tobacco [...] Description 06/09/2022 Appointment General Dentistry Elaine Garcia, [facility] [address] [place] [address] (Wo rk) documented as of this encounter Procedures Procedure Name Priority Date/Time Associated Diagnosis Comme nts ALBUMIN/CREAT RATIO Routine 01/03/2020 11:20 AM Type 2 diabete s Results for this CDT mellitus without procedure a re in complication, the results without long-term section. current use of insulin (HRC) documented in this encounter Results Microalb/Creat Ratio (01/03/2020 11:20 AM CDT) [facility] Method Time Signature Albumin, 28.6 mg/L 01/03/2020 [facility] Urine, Random 4:36 PM CDT [facility] Creatinine, 155 >20 mg/dL 01/03/2020 [facility] Urine, Random 4:36 PM CDT C[facility]AL [facility] Albumin/Creati 18 <30 mg/g 01/03/2020 [facility] nine Ratio, 4:36 PM CDT C[facility]AL [facility] Urine, Random Specimen Anatomical Collection Method Collection Time Receive d Time (Source) Location / / Volume Laterality Urine Non-blood 01/03/2020 11:20 01/03/2020 Collection / AM CDT 11:34 AM CDT Unknown Alisha Kimball MD LAB_1 Performing Organization Address City/State/[facility] Code Phon e Number [facility] C[facility]AL [facility] [address] [phone] documented in this encounter Visit Diagnoses Diagnosis Type 2 diabetes mellitus without complic ation, without long-term current use of insulin (HRC) documented in this encounter Care Teams Hand Tapper Relationship Specialty Start Date End Date Alisha Kimball MD PCP - General 07/08/05 [address] [place] [address] documented as of this encounter
--- OUTSIDE RECORDS SUMMARY | 2022-05-29 13:29 | XMS_ITS | Encounter Summary ---
:1955 Author Organization [facility] Address [address] [address] Care Team Providers Name Role Phone Alisha Kimball MD Primary Care Provider Reason for Visit Reason Comments Dental Hygiene none Encounter Details Date Type Department Care Team Description 02/14/2020 Office Visit [facility] [place] Yaquelin Garcia Hygiene (none) [facility] [address] [address] [phone] Social History Tobacco Use Types Packs/Day Years [...] this encounter Patient Instructions Patient InstructionsYaquelin Garcia RD - 02/14/2020 10:20 AM CDT Your next [...] collaborating agreement with Jamaal Cleveland DDS (License #:[id number]) PRESENTATION: Oral Hygiene: Good Plaque: Localized, light supra-gingival , interproximal, mandibular anterior and posterior buccal Calculus: Localized, moderate interproximal and mandibular anterior Stain: None Bleeding: None Gingival tissue: Normal Mucogingival concerns: Absent ACTIVITIES: Hand scale, Flossed all contacts and No bhutanese PATIENT EDUCATION: Caries risk, Periodontal risk, Oral [...] Description 06/09/2022 Appointment General Dentistry Elaine Garcia, [facility] [address] [place] [address] (Wo rk) documented as of this encounter Procedures Procedure Name Priority Date/Time Associated Diagnosis Comme nts [id number] Routine 02/14/2020 10:20 AM Localized gingi vitis CDT PERIODIC ORAL EVALUATION Routine 02/14/2020 10:20 AM Localized gingivitis CDT PROPHYLAXIS-ADULT RECALL Routine 02/14/2020 10:20 AM Localized gingivitis CDT documented in this encounter Visit Diagnoses Diagnosis Localized gingivitis - Primary Gingivitis Chronic gingivitis, plaque induced documented in this encounter Care Teams Geodetic Surveyor Technologist Relationship Specialty Start Date End Date Alisha Kimball MD PCP - General 07/08/05 [address] [place] [address] documented as of this encounter
--- OUTSIDE RECORDS SUMMARY | 2022-05-29 13:29 | XMS_ITS | Encounter Summary ---
:1955 Author Organization [employer] Address [address] [place] [address] Care Team Providers Name Role Phone Alisha Kimball MD Primary Care Provider Encounter Details Date Type Department Care Team Description 06/14/2020 [facility] Anticoagulation Cent er [address] [place] [address] [address] [place], [place] [address] [phone] Social History Tobacco Use Types Packs/Day Years [...] Barnes RN/[facility] 06/14/2020 2:33 PM NT MANAGEMENT MANAGER Marysol Davidson RN - 06/14/2020 2:27 PM CST Will postpone for 07/18/2020 follow-up. Provider sent refill of Eliquis for patient. [facility] and is planning on switching to warfarin at that time. Marysol Davidson, CAITLYN 06/14/2020, 7:19 PM NT MANAGEMENT MANAGER Floresita Wyatt - 06/14/2020 2:27 PM CST Per INR Reg: no INR recheck date . Please review. Floresita Wyatt 08/16/2020, 9:41 AM NT MANAGEMENT MANAGER Kian Barnes RN - 06/14/2020 2:27 PM CST Spoke with pt and per pt she is no longer with [facility] since then first of the year. She is now getting her primary through [facility]. Per pt she cont on Eliquis but anticoagulation is now managed by [facility]. Will discontinued anticoagulation care with [facility]. Sending as FYI to PCP. Kian Barnes RN/[facility] 08/16/2020 10:32 AM NT MANAGEMENT MANAGER documented in this encounter Plan of Treatment Upcoming Encounters Date Type Specialty Care Team Description 06/09/2022 Appointment General Dentistry Elaine Garcia, [facility] [address] [place], [place] [phone] (Wo rk) documented as of this encounter Visit Diagnoses Not on filedocumented in this encounter Care Teams Lobby Concierge Relationship Specialty Start Date End Date Alisha Kimball MD PCP - General 07/08/05 [address] [place] [address] documented as of this encounter
--- OUTSIDE RECORDS SUMMARY | 2022-05-29 13:29 | XMS_ITS | Encounter Summary ---
:1955 Author Organization [facility] Address [address] [place] [address] Care Team Providers Name Role Phone Carroll Avalos MD Primary Care Provider Reason for Visit Reason Comments Refill atenolol (TENORMIN) 100 MG t ablet [Pharmacy Med Name: ATENOLOL 100 MG TABLET] Encounter Details Date Type Department Care Team Description 05/21/2020 Refill [facility] Carroll Avalos MD Refill (atenolol Practice [address] (TENORMIN) 100 MG tablet [address] [place] [address] [Pharmacy Med Name: [place] [address] ATENOLOL 100 MG TABLET]) [phone] Social History Tobacco Use Types Packs/Day Years Used Date Smoking Tobacco: Never Smokeless Tobacco: Never Alcohol Use Standard Drinks/Week Comments No 0 (1 standard drink = 0.6 oz pure alcoho l) Sex Assigned at Date Recorded Not on file documented as of this encounter Nursing Notes Nadia Garcia RN - 05/22/2020 11:55 AM CST Medication(s) approved by RN per Refill Protocol/Standing Order Nadia Garcia RN 05/22/2020, 11:55 AM OW WORKER HELPER Interface, Out Surescripts Prov Query - 05/21/2020 12:02 AM CST atenolol (TENORMIN) 100 MG tablet [Pharmacy Med Name: ATENOLOL 100 MG TABLET] Miscellaneous - 12 Month Visit -> Refill x 12 months, qty: 90, refills: 3 (until due for an office visit) Last qualifying visit: 04/16/2020 (with CARROLL AVALOS) Next scheduled visit: None Last ordered by CARROLL AVALOS: 07/03/2019 (323 days ago) QTY: 90, Refills: 3, Sig: take 1 tablet by mouth daily. (changed but equivalent) Powered by [employer], Reference: [id number], 05/21/2020 12:02:43 AM BARROW WORKER HELPER, Pool: ARNOLD REFILL RN ([id number]) OW WORKER HELPER documented in this encounter Plan of Treatment Upcoming Encounters Date Type Specialty Care Team Description 06/09/2022 Appointment General Dentistry Elaine Garcia, [facility] [address] [place] [address] (Wo rk) documented as of this encounter Visit Diagnoses Diagnosis Paroxysmal atrial fibrillation (HRC) Atrial fibrillation documented in this encounter Care Teams Stripping Machine Operator Relationship Specialty Start Date End Date Carroll Avalos MD PCP - General 07/08/[address] [place], [place] [id number] documented as of this encounter
--- OUTSIDE RECORDS SUMMARY | 2022-05-29 13:29 | XMS_ITS | Encounter Summary ---
:1955 Author Organization [facility] Address [address] [place] [address] Care Team Providers Name Role Phone Alisha Kimball MD Primary Care Provider Reason for Referral Procedure/Equipment (Routine) - Incomplete Specialty Diagnoses / Procedures Referred By Contact Refer red To Contact Procedures Alisha Kimball MD [facility] Scre[facility] [address] [place] [address] Referral ID Status Reason Start Date Expiration Date Visits V isits Requested Authorized [id number] Incomplete 02/12/2020 05/13/2021 1 1 Reason for Visit Procedure/Equipment (Routine) - Incomplete Specialty Diagnoses / Procedures Referred By Contact Refer red To Contact Procedures Alisha Kimball MD [facility] Mammogram Screening [facility] [address] [place] [address] Referral ID Status Reason Start Date Expiration Date Visits V isits Requested Authorized [id number] Incomplete 02/12/2020 05/13/2021 1 1 Encounter Details Date Type Department Care Team Description 02/12/2020 Ancillary Procedure [facility] Mammography [address] [facility] [place] [address] Social History Tobacco Use Types Packs/Day Years Used Date Smoking Tobacco: Never Smokeless Tobacco: Never Alcohol Use Standard Drinks/Week Comments No 0 (1 standard drink = 0.6 oz pure alcoho l) Sex Assigned at Date Recorded Not on file documented as of this encounter Plan of Treatment Upcoming Encounters Date Type Specialty Care Team Description 06/09/2022 Appointment General Dentistry Radha Elainetejinder May, [facility] [address] [place] [address] (Wo rk) documented as of this encounter [...] on filedocumented in this encounter Care Teams Electrical Prospecting Engineer Relationship Specialty Start Date End Date Alisha Kimball MD PCP - General 07/08/05 [address] [place] [address] documented as of this encounter
--- OUTSIDE RECORDS SUMMARY | 2022-05-29 13:29 | XMS_ITS | Encounter Summary ---
:1955 Author Organization [employer] Address [address] [place] [address] Care Team Providers Name Role Phone Alisha Kimball MD Primary Care Provider Reason for Visit Reason Comments Eye Exam Encounter Details Date Type Department Care Team Description 01/25/2020 Office Visit [facility] Eric Keller, OD Diabetes type 2, no ocular involvement ( HRC) (Primary Dx); [address] [place] [address] [place], [place] [phone] [address] Social History Tobacco Use Types Packs/Day Years Used Date Smoking Tobacco: Never Smokeless Tobacco: Never Alcohol Use Standard Drinks/Week Comments No 0 (1 standard drink = 0.6 oz pure alcoho l) Sex Assigned at Date Recorded Not on file documented as of this encounter Patient Instructions Patient InstructionsEric Keller, OD - 01/25/2020 9:20 AM CDT Your eyes [...] most of the time systane kathy at bedtine reitred DM - A couple days ago 120 [...] Description 06/09/2022 Appointment General Dentistry Elaine Garcia, [facility] [address] [place], [place] [phone] (Wo rk) documented as of this encounter Visit Diagnoses Diagnosis Diabetes type 2, no ocular involvement ( HRC) - Primary Presbyopia documented in this encounter Care Teams Chief Environmental Commitment Officer Relationship Specialty Start Date End Date Alisha Kimball MD PCP - General 07/08/05 [address] [place] [address] documented as of this encounter
--- OUTSIDE RECORDS SUMMARY | 2022-05-29 13:29 | XMS_ITS | Encounter Summary ---
:1955 Author Organization [facility] Address [address] [place] [address] Care Team Providers Name Role Phone Carroll Avalos MD Primary Care Provider Encounter Details Date Type Department Care Team Description 04/11/2020 Lab Visit [place] Elevated liver enzymes (Primary Dx); Laboratory Essential hypertension; [address] [facility] (dyspnea on exertion); [place], [place] [address] Type 2 diabetes mellitus wit hout complication, without long-term current use of insulin (HRC); [phone] Hypercholestero lemia Social History Tobacco Use Types [...] Dentistry Elaine Garcia, [facility] [address] [place] [address] (Wo rk) documented as of [...] (ABNORMAL) Microalb/Creat Ratio (04/11/2020 11:00 AM CDT) [facility] Live Method Time Signature Albumin, 72.7 mg/L 04/11/2020 [facility] Urine, Random 5:52 PM CDT CENTRAL LAB Creatinine, 129 >20 mg/dL 04/11/2020 [facility] Urine, Random 5:52 PM CDT CENTRAL LAB Albumin/Creati 56 (H) <30 mg/g 04/11/2020 [facility] nine Ratio, 5:52 PM CDT CENTRAL LAB Urine, Random Specimen Anatomical Collection Method Collection Time Receive d Time (Source) Location / / Volume Laterality Urine,random 04/11/2020 11:00 04/11/2020 AM CDT 12:31 PM CDT Kareen Cohen APRN, MOTORBOAT OPERATOR LAB_1 Performing Organization Address City/State/ZIP Code Phon e Number [facility]AL [facility] [address] [address] (ABNORMAL) Hgb A1C (04/11/2020 8:48 AM CDT) [facility] Live Method Time Signature Hemoglobin A1C 7.2 (H) <=5.6 % 04/11/2020 [facility] 10:07 PM CDT CENTRAL LAB Specimen Anatomical Collection Method / Collection Time Recei dawn Time (Source) Location / Volume Laterality Blood Venipuncture / 04/11/2020 8:48 04/11/2020 8:48 Unknown AM CDT AM CDT [facility] CEN[facility]AL LAB - 04/11/2020 10:07 PM CDT For patients not previously diagnosed with diabetes: 5.7-6.4%: Increased risk for diabetes 6.5% and greater: Diagnostic for diabete s For patients diagnosed with diabetes: <8.0%: Goal of therapy for ages 18-75 Clinicians may recommend a higher or low er goal for specific individuals. Carroll Avalos MD LAB_1 Performing Organization Address [facility] e Number [facility] [address] [place] [address] TSH with Free T4 (if TSH Abnormal) (04/11/2020 8:48 AM CDT) athologist Signature TSH, Reflex 3.02 0.30 - 04/11/2020 [facility] 4.50 11:53 AM CDT CENTRAL LAB uIU/mL Specimen Anatomical Collection Method / Collection Time Recei dawn Time (Source) Location / Volume Laterality Blood Venipuncture / 04/11/2020 8:48 04/11/2020 8:48 Unknown AM CDT AM CDT [facility] - 04/11/2020 11:53 AM CDT Lab will automatically reflex to Free T4 when TSH results are <0.30 uIU/mL or >4.50 mIU/mL. Janice Gill PA-C LAB_1 Performing Organization Address [facility] e Number [facility] [address] [place] [address] (ABNORMAL) ALT (SGPT) (04/11/2020 8:48 AM CDT) athologist Signature ALT (SGPT) 63 (H) 0 - 55 U/L 04/11/2020 [facility] 11:44 AM CDT CENTRAL LAB Specimen Anatomical Collection Method / Collection Time Recei dawn Time (Source) Location / Volume Laterality Blood Venipuncture / 04/11/2020 8:48 04/11/2020 8:48 Unknown AM CDT AM CDT Janice Sole Bridget DIAZ LAB_1 Performing Organization Address City/[facility]/ZIP Code Phon e Number [facility]AL [facility] [address] [address] (ABNORMAL) BASIC METABOLIC PANEL (04/11/2020 8:48 AM CDT) [facility] Method Time Signature Sodium 139 136 - 145 04/11/2020 [facility] mmol/L 11:44 AM CDT CENTRAL LAB Potassium 4.6 3.5 - 5.1 04/11/2020 [facility] mmol/L 11:44 AM CDT CENTRAL LAB Chloride 105 98 - 109 04/11/2020 [facility] mmol/L 11:44 AM CDT CENTRAL LAB CO2 26 20 - 29 04/11/2020 [facility] mmol/L 11:44 AM CDT CENTRAL LAB Anion Gap 8 7 - 16 04/11/2020 [facility] mmol/L 11:44 AM CDT CENTRAL LAB Calcium 9.1 8.4 - 04/11/2020 [facility] 10.4 11:44 AM CDT CENTRAL LAB mg/dL BUN 16 7 - 26 04/11/2020 [facility] mg/dL 11:44 AM CDT CENTRAL LAB Creatinine 0.87 0.55 - 04/11/2020 [facility] 1.02 11:44 AM CDT CENTRAL LAB mg/dL GFR, Estimated >60 >60 04/11/2020 [facility] mL/min/1. 11:44 AM CDT CENTRAL LAB 73m2 Glucose 128 (H) 70 - 100 04/11/2020 [facility] mg/dL 11:44 AM CDT CENTRAL LAB Comment: The given reference range is fo r the fasting state. Non-fasting reference range for glucose is 70 - 180 mg/dL. Hours Fasting N/A 04/11/2020 11:44 AM CDT [facility] Specimen Anatomical Collection Method / Collection Time Recei dawn Time (Source) Location / Volume Laterality Blood Venipuncture / 04/11/2020 8:48 04/11/2020 8:48 Unknown AM CDT AM CDT Janice Gill PA-C LAB_1 Performing Organization Address City/[facility]/ZIP Code Phon e Number [facility] CENTRAL LAB [address] [address] [facility] [address] [place], [place] [phone] CBC (aka HEMOGRAM/PLTS) (04/11/2020 8:48 AM CDT) P athologist Signature WBC 7.1 3.5 - 10.5 04/11/2020 [facility] x10(9)/L 8:58 AM CDT LAB RBC 4.71 3.90 - 5.03 04/11/2020 [facility] x10(12)/L 8:58 AM CDT LAB Hemoglobin 13.9 12.0 - 15.5 04/11/2020 [facility] g/dL 8:58 AM CDT LAB HCT 42.3 34.9 - 44.5 04/11/2020 [facility] % 8:58 AM CDT LAB MCV 89.8 80.0 - 04/11/2020 [facility] 100.0 fL 8:58 AM CDT LAB MCH 29.5 27.6 - 33.3 04/11/2020 [facility] pg 8:58 AM CDT LAB MCHC 32.9 31.5 - 35.2 04/11/2020 [facility] g/dL 8:58 AM CDT LAB RDW 13.1 11.9 - 15.5 04/11/2020 [facility] % 8:58 AM CDT LAB Platelets 223 150 - 450 04/11/2020 [facility] x10(9)/L 8:58 AM CDT LAB Specimen Anatomical Collection Method / Collection Time Recei dawn Time (Source) Location / Volume Laterality Blood Venipuncture / 04/11/2020 8:48 04/11/2020 8:48 Unknown AM CDT AM CDT Janice Gill PA-C LAB_1 Performing Organization Address City/State/ZIP Code Phon e Number [facility] [address] [place] [address] documented in this encounter Visit [...] hypercholesterolemia documented in this encounter Care Teams Bus Starter Relationship Specialty Start Date End Date Carroll Avalos MD PCP - General 07/08/05 [address] [place] [address] documented as of this encounter
--- OUTSIDE RECORDS SUMMARY | 2022-05-29 13:29 | XMS_ITS | Encounter Summary ---
:1955 Author Organization [employer] Address [address] [place] [address] Care Team Providers Name Role Phone Alisha Kimball MD Primary Care Provider Reason for Visit Reason Comments Dental Exam none Dental Hygiene Encounter Details Date Type Department Care Team Description 06/12/2021 Office Visit [facility] Gen Gonzalez, [facility] [address] [place] [address] Dental Exam (none); Dentistry [facility], [facility] [address] [place] [address] Social History Tobacco Use Types [...] - - Pulse 61 06/12/2021 9:19 AM COORDINATE MEASURING MACHINE OPERATOR Temperature - - Respiratory Rate - [...] next visit! Thank you for choosing [facility]. DINATE MEASURING MACHINE OPERATOR documented in this encounter Progress Notes Jamaal [...] DDS 06/12/2021, 9:45 AM --End of Note-- DINATE MEASURING MACHINE OPERATOR Addie Gonzalez RDH - 06/12/2021 9:20 AM CST HYGIENE PROPHY NOTE COLLABORATIVE AGREEMENT: The patient consents to have charting, radiographs and prophylaxis by the dental hygienist performed with the understanding that this care is not a substitute for an examination by a dentist. These activities were performed under a collaborating agreement with Josue Kerns DDS (License #: [id number]) PROCEDURAL PAUSE: Patient identity verified: Yes Treatment [...] RDH 06/12/2021, 10:00 AM --End of Note-- DINATE MEASURING MACHINE OPERATOR documented in this encounter Plan of Treatment Upcoming Encounters Date Type Specialty Care Team Description 06/09/2022 Appointment General Dentistry Elaine Garcia [facility] [address] [place] [address] (Wo rk) documented as of this encounter Procedures Procedure Name Priority Date/Time Associated Diagnosis Comme nts [id number] Routine 06/12/2021 9:20 AM COORDINATE MEASURING MACHINE OPERATOR Chronic charlie odontitis, localized, slight PERIODIC ORAL Routine 06/12/2021 9:20 AM COORDINATE MEASURING MACHINE OPERATOR Chronic periodont itis, EVALUATION localized, slight PROPHYLAXIS-ADULT Routine 06/12/2021 9:20 AM COORDINATE MEASURING MACHINE OPERATOR Chronic perio dontitis, RECALL localized, slight documented in this encounter Visit Diagnoses Diagnosis Chronic periodontitis, localized, slight - Primary documented in this encounter Care Teams Industrial Maintenance Technician Relationship Specialty Start Date End Date Alisha Kimball MD PCP - General 07/08/05 [address] [place] [address] documented as of this encounter
--- OUTSIDE RECORDS SUMMARY | 2022-05-29 13:29 | XMS_ITS | Encounter Summary ---
:1955 Author Organization [facility] Address [address] [place] [address] Care Team Providers Name Role Phone Carroll Avalos MD Primary Care Provider Reason for Referral Medication Prior Authorization (Routine) - Closed Specialty Diagnoses / Procedures Referred By Contact Refer red To Contact Carroll Avalos MD [address] [place] [address] Referral ID Status Reason Start Date Expiration Date Visits Requ ested Visits Authorized [id number] Closed 1 1 RIAL CONTROLLER Reason for Visit Reason Comments Refill metFORMIN XR (GLUCOPHAGE XR) 500 MG 24 hour release tablet [Pharmacy Med Name: METFORMIN HCL ER 500 MG TABL ET]; atorvastatin (LIPITOR) 10 MG tablet [Pharmacy Med Name: ATORVASTATIN 10 MG TABLET] Encounter Details Date Type Department Care Team Description 08/25/2020 [facility] Carroll Avalso MD Refill (metFORMIN XR [address] [facility] [address] (GLUCOPHAGE XR) [address] [place] [address] [place] [address] 24 hour release tablet [phone] (Wo rk) [Pharmacy Med Name: METFORMIN HCL [...] order. Tesha Cagle RN 08/26/2020, 4:23 PM RIAL CONTROLLER Interface, Out Surescripts Prov Query - 08/25/2020 [...] mouth daily. (changed but equivalent) Powered by [facility], Reference: [id number], 08/25/2020 11:42:56 AM MATERIAL CONTROLLER, Luis Eduardo: ARNOLD REFILL CAITLYN ([id number]) metFORMIN XR (GLUCOPHAGE XR) 500 MG 24 [...] HBA1C: 7.2 % on 04/11/2020 Powered by [employer], Reference: [id number], 08/25/2020 11:42:56 AM MATERIAL CONTROLLER, Pool: ARNOLD REFILL CAITLYN ([id number]) RIAL CONTROLLER Interface, Out Farseer Prov Query - 08/25/2020 11:42 AM CST The following lab order(s) may be associated with the Result Note below: COMPLETE BLOOD COUNT-NO DIFF Notes recorded by Lucy Mancuso RN on 04/11/2020 at 10:39 AM CDT Letter sent with results. Lucy Mancuso RN 04/11/2020, 10:39 AM RIAL CONTROLLER documented in this encounter Plan of Treatment Upcoming Encounters Date Type Specialty Care Team Description 06/09/2022 Appointment General Dentistry Elaine Garcia, [facility] [address] [place] [address] (Wo rk) documented as of this encounter Visit Diagnoses Not on filedocumented in this encounter Care Teams Assistant Quality Manager Relationship Specialty Start Date End Date Carroll Avalos MD PCP - General 07/08/05 [address] [place] [address] documented as of this encounter
--- OUTSIDE RECORDS SUMMARY | 2022-05-29 13:29 | XMS_ITS | Encounter Summary ---
:1955 Author Organization [employer] Address [address] [place] [address] Care Team Providers Name Role Phone Alisha Kimball MD Primary Care Provider Reason for Visit Reason Comments Dental Exam none Dental Hygiene Encounter Details Date Type Department Care Team Description 02/24/2022 Office Visit [place] Gen Gonzalez, [facility] [address] [place] [address] Dental Exam (none); Dentistry [facility], Exam Dental Hygiene [address] [place] [address] Social History Tobacco Use Types [...] by the dentist, dental hygienist, or dental assistant track coach. Congratulations on your low risk for gum [...] agreement with Josue Kerns DDS (License #: [id number]) PROCEDURAL PAUSE: Patient identity verified: Yes Treatment [...] Description 06/09/2022 Appointment General Dentistry Elaine Garcia [facility] [address] [place] [address] (Wo rk) Scheduled Orders Name Type Priority Associated Order Schedule Diagnoses PROPHYLAXIS-ADULT Dental Procedures Routine 1 Occ urrences RECALL starting 2021 PERIODIC ORAL Dental Procedures Routine 1 Occurre nces EVALUATION starting 2021 [id number] Dental Procedures Routine 1 Oc currences starting [...] Primary documented in this encounter Care Teams Signal Supervisor Relationship Specialty Start Date End Date Alisha Kimball MD PCP - General 07/08/05 [address] [place] [address] documented as of this encounter
--- OUTSIDE RECORDS SUMMARY | 2022-05-29 13:29 | XMS_ITS | Encounter Summary ---
:1955 Author Organization [employer] Address [address] [place] [address] Care Team Providers Name Role Phone Alisha Kimball MD Primary Care Provider Reason for Visit Reason Comments Medication Questions Encounter Details Date Type Department Care Team Description 01/10/2020 Telephone [facility] Alisha Kimball MD Medication Questions Practice [address] [place] [address] [place], [place] [phone] Social History Tobacco Use Types Packs/Day Years [...] 06/09/2022 Appointment General Dentistry Elaine Garcia, [facility] [address] [place], [place] [phone] (Wo rk) documented as of this encounter Visit Diagnoses Diagnosis Type 2 diabetes mellitus without complic ation, without long-term current use of insulin (HRC) documented in this encounter Care Teams Change Management Analyst Relationship Specialty Start Date End Date Alisha Kimball MD PCP - General 07/08/05 [address] [place] [address] documented as of this encounter
--- OUTSIDE RECORDS SUMMARY | 2022-05-29 13:29 | XMS_ITS | Encounter Summary ---
:1955 Author Organization [employer] Address [address] [address] Care Team Providers Name Role Phone Alisha Kimball MD Primary Care Provider Reason for Referral Consult/Transfer Care (Routine) - Incomplete Specialty Diagnoses / Procedures Referred By Contact Refer red To Contact Diagnoses CAREPLAN: ANTI-COAGULATION Paroxysmal atrial fibrillation (HRC) Madiha Olivares III, MD [address] [place] [address] Referral ID Status Reason Start Date Expiration Date Visits V isits Requested Authorized [id number] Incomplete 06/14/2020 09/13/2021 1 1 Scheduling Instructions . ER SHANK Reason for Visit Reason Comments Medication Questions Encounter Details Date Type Department Care Team Description 06/14/2020 Telephone [facility] Alisha Kimball MD Medication Questions Practice [address] [facility] 50 [facility] [place] [address] [place], [place] [phone] Social History Tobacco Use Types Packs/Day Years Used Date Smoking Tobacco: Never Smokeless Tobacco: Never Alcohol Use Standard Drinks/Week Comments No 0 (1 standard drink = 0.6 oz pure alcoho l) Sex Assigned at Date Recorded Not on file documented as of this encounter Patient Instructions Patient InstructionsMadiha Olivares III, MD - 06/14/2020 1:12 PM CST ER SHANK documented in this encounter Nursing Notes Addie Gonzalez RDH - 06/12/2021 9:58 AM CST Pt. Requested removal, the patient takes eliquis. Addie Gonzalez RDH 06/12/2021, 9:59 AM ER SHANK Madiha Olivares III, MD - 06/14/2020 5:06 PM CST Order is signed. Madiha Olivares III, MD ER SHANK Juan Hoffman - 06/14/2020 2:16 PM CST Pt called states that she is not starting the warfarin until Jul. For now she needs just 15 days worth of Eliquis [facility]. Per pt, please just send 15 days worth of medication, she will do labs when she comes back from [place], thank you ER SHANK Mary De La O - 06/14/2020 1:52 PM CST Patient called back and states that she will make it work and to cancel this request. ER SHANK Mickie Welsh RN - 06/14/2020 1:40 PM CST Autoglazier discussed with pt. Pt states she has enough elquist until 07/05/19. Pt will be back in town 2week of July. Pt states she can go Wednesday morning to get labs as she is leaving for [place] on wed06/19/20-07/19/19. Please advise. Mickie Welsh RN 06/14/2020, 1:42 PM ER SHANK Madiha Olivares III, MD - 06/14/2020 1:12 PM CST Will order for warfarin initiation and refer to the coumadin clinic. Needs baseline labs. RN please inform patient.Madiha Olivares III, MD ER SHANK Rocio Garcia - 06/14/2020 10:15 AM CST [...] month, next week Wednesday. Will forward to [facility] - Dr Olivares (Dr Kimball out of clinic) Who prescribed it? Alisha Kibmall MD Is it okay to leave a detailed message on your voicemail? Yes For this medication, patient would like it filled at the pharmacy listed in Meds & Orders. [Carton Gluing Machine Operator/Appt Center: Verify the pharmacy patient would like to use for this request is highlighted in blue in Pharmacy Selection under Meds & Orders] Rocio Garcia Please route to: Care Team Pool If this is a Medicaid drug change, please route to: clinic specific Refill poultry hanger ER SHANK documented in this encounter Plan of Treatment Upcoming Encounters Date Type Specialty Care Team Description 06/09/2022 Appointment General Dentistry Elaine Garcia, [facility] [address] [place] [address] (Wo rk) Scheduled Referrals Name Type Priority Associated Diagnoses Order S chedule HP Anticoagulation Dosing Referral Routine CAREPLAN: Or dered: Order ANTI-COAGULATION 06/14/2020 Paroxysmal atrial fibrillation (HRC) documented as of this encounter Visit Diagnoses Diagnosis CAREPLAN: ANTI-COAGULATION 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
--- OUTSIDE RECORDS SUMMARY | 2022-05-29 13:29 | XMS_ITS | Encounter Summary ---
:1955 Author Organization [employer] Address [address] [address] Care Team Providers Name Role Phone Alisha Kimball MD Primary Care Provider Reason for Visit Reason Onset Date Comments Refill 01/09/2020 Encounter Details Date Type Department Care Team Description 01/09/[address] [facility] maxi Alisha Kimball MD Refill [address] [facility]. [address] [place] [address] [place], [place] [phone] (Wo rk) Social History Tobacco Use Types [...] Description 06/09/2022 Appointment General Dentistry Elaine Garcia, [address] [address] [place], [place] [phone] (Wo rk) documented as of this encounter Visit Diagnoses Diagnosis Type 2 diabetes mellitus without complic ation, without long-term current use of insulin (HRC) documented in this encounter Care Teams Network Support Manager Relationship Specialty Start Date End Date Alisha Kimball MD PCP - General 07/08/05 [address] [place] [address] documented as of this encounter
--- OUTSIDE RECORDS SUMMARY | 2022-05-29 13:29 | XMS_ITS | Encounter Summary ---
:1955 Author Organization [facility] Address [address] [place] [address] Care Team Providers Name Role [...] Office Visit [facility] Alisha Kimball [facility] hypertension; Practice Paroxysmal atrial fibrillation (HRC) [address] [place] [address] [place] [address] [phone] Social History Tobacco Use Types Packs/Day Years [...] take warfarin. [facility]. ?? Don't take warfarin if you [...] These include aspirin and other pain relievers, ahbz-tkc-aldbaij medicines, multivitamins, dietary supplements, and herbal products. [...] Leafy greens, such as kale, cabbage, spinach, Indonesian chard, and lettuce. ?? Canola and soybean oils. ?? Green vegetables, such as asparagus, broccoli, and Montezuma sprouts. ?? Vegetable drinks, green tea leaves, [...] Where can you learn more? Go to [email or web address] and enter N172 in the search box. Current as of: September 13, 2013 Content Version: 10.1 ?? 2510-1412 SaveUp. documented in this encounter Progress Notes Alisha [...] Description 06/09/2022 Appointment General Dentistry Elaine Garcia, [facility] [address] [place], [place] [phone] (Wo rk) documented as of this encounter Visit Diagnoses Diagnosis Essential hypertension (HRC) Unspecified essential hypertension Paroxysmal atrial fibrillation (HRC) Atrial fibrillation documented in this encounter Care Teams Senior Caregiver Relationship Specialty Start Date End Date Alisha Kimball MD PCP - General 07/08/05 [address] [place], [place] [phone] documented as of this encounter
--- OUTSIDE RECORDS SUMMARY | 2022-05-29 13:29 | XMS_ITS | Encounter Summary ---
:1955 Author Organization [employer] Address [address], [place] [address] Care Team Providers Name Role Phone Alisha Kimball MD Primary Care Provider Reason for Visit Reason Comments BLOOD PRESSURE CHECK Encounter Details Date Type Department Care Team Description 05/31/2020 Telephone [facility] Alisha Kimball MD BLOOD PRESSURE CHECK Practice [address] [place] [address] [place], [place] [phone] Social History Tobacco Use Types Packs/Day Years [...] Dr Kimball questions. Please call back at [phone] and ask for Nga Kimball's nurse. Nga Ballard LPN FOOD SHREDDER OPERATOR Reina Velasquez LPN - 05/31/2020 10:58 AM CST Divinity Professor left a message for patient to return call to clinic. Reina Velasquez LPN FOOD SHREDDER OPERATOR Alisha Kimball MD - 05/31/2020 9:38 AM CST Some of the readings are pretty low. Does she have lightheadedness when she stands up? Does she wantto decrease her losartan to 1/2 tab daily and monitor her blood pressure? Thanks! Alisha Kimball MD Vero Ramirez - 05/31/2020 8:59 AM CST Miscellaneous Questions & FYI's [Driftman: If this call is after 3 p.m., communicate to patient: If we are not able to get back to you by the end of the day and your symptoms worsen please contact the Careline at [phone] at .] Is this a question/concern or [...] route to None OR Care Team Pool [PROVIDER CONTRACTING CONSULTANT/RMA/LPNs: please call the patient to gather additional details, as needed.] FOOD SHREDDER OPERATOR documented in this encounter Plan of Treatment Upcoming Encounters Date Type Specialty Care Team Description 06/09/2022 Appointment General Dentistry Elaine Garcia, [facility] [address] [place] [address] (Wo rk) documented as of this encounter Visit Diagnoses Not on filedocumented in this encounter Care Teams Meat Sales And Storage Manager Relationship Specialty Start Date End Date Alisha Kimball MD PCP - General 07/08/05 [address] [place], [place] [phone] documented as of this encounter
--- OUTSIDE RECORDS SUMMARY | 2022-05-29 13:29 | XMS_ITS | Encounter Summary ---
:1955 Author Organization [employer] Address [address], [place] [address] Care Team Providers Name Role Phone Alisha Kimball MD Primary Care Provider Reason for Visit Reason Comments LAB TESTS, NOS Encounter Details Date Type Department Care Team Description 04/03/2020 Telephone [facility] Alisha Kimball MD LAB TESTS, N[place] [address] [facility] [address] [place], [place] [address] [place] [address] [phone] (Wo rk) Social History Tobacco Use Types [...] Team Description 06/09/2022 Appointment General Dentistry Radha Elaine Gomez, [facility] [address] [place] [address] (Wo rk) documented as of this encounter Results (ABNORMAL) Hgb A1C (04/11/2020 8:48 AM CDT) [facility] gist Method Time Signature Hemoglobin A1C 7.2 (H) <=5.6 % 04/11/2020 [facility] 10:07 PM CDT CENTRAL LAB Specimen Anatomical Collection Method / Collection Time Recei dawn Time (Source) Location / Volume Laterality Blood Venipuncture / 04/11/2020 8:48 04/11/2020 8:48 Unknown AM CDT AM CDT Narrative [facility] - 04/11/2020 10:07 PM CDT For patients not previously diagnosed with diabetes: 5.7-6.4%: Increased risk for diabetes 6.5% and greater: Diagnostic for diabete s For patients diagnosed with diabetes: <8.0%: Goal of therapy for ages 18-75 Clinicians may recommend a higher or low er goal for specific individuals. Alisha Kimball MD LAB_1 Performing Organization Address City/State/ZIP Code Phon e Number [facility] [address] [phone] documented in this encounter Visit Diagnoses Diagnosis Type 2 diabetes mellitus without complic ation, without long-term current use of insulin (HRC) - Primary Hypercholesterolemia Pure hypercholesterolemia documented in this encounter Care Teams Grades 6 Through 8 Teacher Relationship Specialty Start Date End Date Alisha Kimball MD PCP - General 07/08/05 [address] [place] [address] documented as of this encounter
--- OUTSIDE RECORDS SUMMARY | 2022-05-29 13:29 | XMS_ITS | Encounter Summary ---
:1955 Author Organization [employer] Address [address], [place] [address] Care Team Providers Name Role Phone Alisha Kimball MD Primary Care Provider Reason for Visit Reason Comments Dental Hygiene no cc;s Encounter Details Date Type Department Care Team Description 10/08/2020 Office Visit [facility] Dori Mayer De nta Hygiene (no Dentistry RD cc;s) [address] [facility] [address] [place] [phone] Social History Tobacco Use Types Packs/Day Years [...] this encounter Patient Instructions Patient InstructionsDori Mayer [facility] - 10/08/2020 9:10 AM CDT [...] were performed under a collaborating agreement with aJmaal [place] DDS (License #:[id number]) PRESENTATION: Oral Hygiene: Fair Plaque: Localized, light [...] Description 06/09/2022 Appointment General Dentistry Elaine Garcia [facility] [address] [place] [address] (Wo rk) documented as of this encounter [...] facility documented in this encounter Care Teams Biodiesel Engineering Manager Relationship Specialty Start Date End Date Alisha Kimball MD PCP - General 07/08/05 [address] [place] [address] documented as of this encounter
--- OUTSIDE RECORDS SUMMARY | 2022-05-29 13:29 | XMS_ITS | Encounter Summary ---
:1955 Author Organization [facility] Address [address] [place] [address] Care Team Providers Name Role Phone Alisha Kimball MD Primary Care Provider Encounter Details Date Type Department Care Team Description 01/03/2020 Lab Visit Center Laboratory Type 2 diabetes mellitus wit hout complication, without long-term current use of insulin (HR); [address] Essential hypertension; [place] [address] Paroxysmal atrial fibrillati on (HRC); [phone] Immunity status testing Social History Tobacco Use [...] Description 06/09/2022 Appointment General Dentistry Elaine Garcia, [facility] [address] [place] [address] (Wo rk) documented as of [...] current use sectio n. of insulin (HRC) BASIC METABOLIC Routine 01/03/2020 9:17 AM Type 2 diabetes Res ults for this PANEL CDT mellitus without procedure a re in complication, without the re sults long-term current use sectio n. of insulin ([facility]) Essential hypertension HEMOGLOBIN, BLOOD Routine 01/03/2020 9:17 AM Paroxysmal atrial Results for this CDT fibrillation (HRC) procedure are in the results section. HGB A1C Routine 01/03/2020 9:17 AM Type 2 diabetes Result s for this CDT mellitus without procedure a re in complication, without the re sults long-term current use sectio n. of insulin ([facility]) ALT (SGPT) Routine 01/03/2020 9:17 AM Type 2 diabetes Result s for this CDT mellitus without procedure a re in complication, without the re sults long-term current use sectio n. of insulin ([facility]) documented in this encounter Results Microalb/Creat Ratio (01/03/2020 11:20 AM CDT) [facility] USMD Method Time Signature Albumin, 28.6 mg/L 01/03/2020 [facility] Urine, Random 4:36 PM CDT CENTRAL LAB Creatinine, 155 >20 mg/dL 01/03/2020 [facility] Urine, Random 4:36 PM CDT CENTRAL LAB Albumin/Creati 18 <30 mg/g 01/03/2020 [facility] nine Ratio, 4:36 PM CDT CENTRAL LAB Urine, Random Specimen Anatomical Collection Method Collection Time Receive d Time (Source) Location / / Volume Laterality Urine Non-blood 01/03/2020 11:20 01/03/2020 Collection / AM CDT 11:34 AM CDT Unknown Alisha Kimball MD LAB_1 Performing Organization Address City/State/ZIP Code Phon e Number [facility] [address] [address] SARS-CoV-2 IgG Antibody (Inhouse) (01/03/2020 9:17 AM CDT) [facility] USMD Method Time Signature [id number]-LlM6-Ed Negative Negative 01/03/2020 [facility] Antibody 3:53 PM CDT LABORATORY Interp SARS CoV-2 0.01 01/03/2020 [facility] IgG Index 3:53 PM CDT LABORATORY SARS The magnitude of 01/03/2020 [facility] CoV-2-IgG the reported 3:53 PM CDT LABORATORY Index Index is not Comment indicative of the amount of antibody present in the patient sample. SARS The SARS-CoV-2 01/03/2020 [facility] CoV-2-IgG IgG assay is 3:53 PM CDT LABORATORY Comment 1 only for use under the Food and Drug Administration's Emergency Use Authorization (EUA). SARS Negative Results 01/03/2020 [facility] CoV-2-IgG do not rule out 3:53 PM CDT LABORATORY Comment 2 SARS-CoV-2 infection, particularly in those who have been in contact with the virus. Follow-up with a molecular diagnostic test should be considered to R/O infection. SARS Results from 01/03/2020 [facility] CoV-2-IgG antibody testing 3:53 PM CDT LABORATORY [...] Organization Address City/State/ZIP Code Phon e Number [facility] [address] [place] [address] Hemoglobin, Blood (01/03/2020 9:17 AM CDT) athologist Signature Hemoglobin 13.6 12.0 - 15.5 01/03/2020 [facility] g/dL 9:20 AM CDT LABORATORY Specimen Anatomical Collection Method / Collection Time Recei dawn Time (Source) Location / Volume Laterality Blood Venipuncture / 01/03/2020 9:17 01/03/2020 9:17 Unknown AM CDT AM CDT Alisha Kimball MD LAB_1 Performing Organization Address City/[facility] Phon e Number [facility] [address] [place], [place] [phone] (ABNORMAL) ALT (SGPT) (01/03/2020 9:17 AM CDT) athologist Signature ALT (SGPT) 56 (H) 0 - 55 U/L 01/03/2020 [facility] 3:07 PM CDT CENTRAL LAB Specimen Anatomical Collection Method / Collection Time Recei dawn Time (Source) Location / Volume Laterality Blood Venipuncture / 01/03/2020 9:17 01/03/2020 9:17 Unknown AM CDT AM CDT Alisha Kimball MD LAB_1 Performing Organization Address City/State/ZIP Code Phon e Number [facility] CENTRAL LAB [address] [address] (ABNORMAL) Basic Metabolic Panel (01/03/2020 9:17 AM CDT) [facility] Method Time Signature Sodium 140 136 - 145 01/03/2020 [facility] mmol/L 3:07 PM CDT CENTRAL LAB Potassium 4.8 3.5 - 5.1 01/03/2020 [facility] mmol/L 3:07 PM CDT CENTRAL LAB Chloride 108 98 - 109 01/03/2020 [facility] mmol/L 3:07 PM CDT CENTRAL LAB CO2 21 20 - 29 01/03/2020 [facility] mmol/L 3:07 PM CDT CENTRAL LAB Anion Gap 11 7 - 16 01/03/2020 [facility] mmol/L 3:07 PM CDT CENTRAL LAB Calcium 9.4 8.4 - 01/03/2020 [facility] 10.4 3:07 PM CDT CENTRAL LAB mg/dL BUN 18 7 - 26 01/03/2020 [facility] mg/dL 3:07 PM CDT CENTRAL LAB Creatinine 0.90 0.55 - 01/03/2020 [facility] 1.02 3:07 PM CDT CENTRAL LAB mg/dL GFR, Estimated >60 >60 01/03/2020 [facility] mL/min/1. 3:07 PM CDT CENTRAL LAB 73m2 Glucose 132 (H) 70 - 100 01/03/2020 [facility] mg/dL 3:07 PM CDT CENTRAL LAB [...] MD LAB_1 Performing Organization Address [facility]/ZIP [facility] Phon e Number [facility] CENTRAL LAB [address] [address] [facility] [address] [place] [address], [facility] [phone] (ABNORMAL) Lipid Panel and Direct LDL(If Needed) (01/03/2020 9:17 AM CDT) [facility] Method Time Signature Cholesterol 157 0 - 199 01/03/2020 [facility] mg/dL 3:07 PM CDT CENTRAL LAB Triglyceride 157 (H) <=149 01/03/2020 [facility] mg/dL 3:07 PM CDT CENTRAL LAB HDL Cholesterol 46 >=40 01/03/2020 [facility] mg/dL 3:07 PM CDT CENTRAL LAB LDL, Calculated 80 <130 01/03/2020 [facility] mg/dL 3:07 PM CDT CENTRAL LAB Non HDL Chol, 111 mg/dL 01/03/2020 [facility] Calculated 3:07 PM CDT CENTRAL LAB Cholesterol/HDL 3.4 01/03/2020 [facility] Ratio 3:07 PM CDT CENTRAL LAB Hours Fasting 12 01/03/2020 [facility] 3:07 PM CDT LABORATORY Specimen Anatomical Collection Method / Collection Time Recei dawn Time (Source) Location / Volume Laterality Blood Venipuncture / 01/03/2020 9:17 01/03/2020 9:17 Unknown AM CDT AM CDT Alisha Kimball MD LAB_1 Performing Organization Address City/[facility]/ZIP Code Phon e Number [facility] CENTRAL LAB [address] [address] [facility] [address] [place] [address], [facility] [phone] (ABNORMAL) Hgb A1C (01/03/2020 9:17 AM CDT) [facility] USMD Method Time Signature Hemoglobin A1C 7.6 (H) <=5.6 % 01/03/2020 [facility] 1:12 PM CDT CENTRAL LAB Specimen Anatomical Collection Method / Collection Time Recei dawn Time (Source) Location / Volume Laterality Blood Venipuncture / 01/03/2020 9:17 01/03/2020 9:17 Unknown AM CDT AM CDT Narrative [facility] - 01/03/2020 1:12 PM CDT For patients not previously diagnosed with diabetes: 5.7-6.4%: Increased risk for diabetes 6.5% and greater: Diagnostic for diabete s For patients diagnosed with diabetes: <8.0%: Goal of therapy for ages 18-75 Clinicians may recommend a higher or low er goal for specific individuals. Alisha Kimball MD LAB_1 Performing Organization Address City/State/ZIP Code Phon e Number [facility] [address] [address] documented in this encounter Visit Diagnoses Diagnosis Type 2 diabetes mellitus without complic ation, without long-term current use of insulin (HRC) Essential hypertension (HRC) Unspecified essential hypertension Paroxysmal atrial fibrillation (HRC) Atrial fibrillation Immunity status testing Antibody response examination documented in this encounter Care Teams Event Mgr Relationship Specialty Start Date End Date Alisha Kimball MD PCP - General 07/08/05 [address] [place] [address] documented as of this encounter
--- OUTSIDE RECORDS SUMMARY | 2022-05-29 13:29 | XMS_ITS | Encounter Summary ---
:1955 Author Organization [employer] Address [address], [place] [address] Care Team Providers Name Role Phone Alisha Kimball MD Primary Care Provider Reason for Visit Reason Comments BP CHECK,NURSE IMMUNIZATIONS Encounter Details Date Type Department Care Team Description 04/11/2020 Nursing Visit [facility] ial hypertension; Department Encounter for immunization [address] [place], [place] [address] Social History Tobacco Use [...] can you learn more? 1. Go to [email or web address] Software or Bomoda/[employer]raPhurnace Software. 2. Enter X567 in the search box. Current as of: June 18, 2019?Content Version: 12.4 ?? 2404-8740 [employer]. Care instructions adapted under license by your healthcare professional. If you have questions abouta medical condition or this instruction, always ask your healthcare professional. [employer] disclaims any warranty or liability for your [...] 06/09/2022 Appointment General Dentistry Elaine Garcia, [facility] [address] [place], [place] [phone] (Wo rk) documented as of this encounter Visit Diagnoses Diagnosis Essential hypertension (HRC) Unspecified essential hypertension Encounter for immunization Need for other specified prophylactic va ccination against single bacterial disease documented in this encounter Care Teams Professor Of Sport Management Relationship Specialty Start Date End Date Alisha Kimball MD PCP - General 07/08/05 [address] [place], [place] [phone] documented as of this encounter
--- OUTSIDE RECORDS SUMMARY | 2022-05-29 13:29 | XMS_ITS | Encounter Summary ---
:1955 Author Organization [employer] Address [address], [place] [address] Care Team Providers Name Role Phone Alisha Kimball MD Primary Care Provider Reason for Visit Reason Comments Dental Hygiene none Encounter Details Date Type Department Care Team Description 06/06/[address] [facility] Alisha Avila, [place] al Hygiene (none) Dentistry 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 [address] [place] [address] (Wo rk) documented as of this encounter Procedures Procedure Name Priority Date/Time Associated Diagnosis Comme nts PROPHYLAXIS-ADULT Routine 06/06/2020 7:10 AM SHIP CONSTRUCTION TEACHER Gingivitis RECALL documented in this encounter Visit Diagnoses Diagnosis Gingivitis - Primary Chronic gingivitis, plaque induced Routine adult health maintenance Routine general medical examination at a health care facility documented in this encounter Care Teams Sales Attendant Building Materials Relationship Specialty Start Date End Date Alisha Kimball MD PCP - General 07/08/05 [address] [place] [address] documented as of this encounter
--- OUTSIDE RECORDS SUMMARY | 2022-05-29 13:29 | XMS_ITS | Encounter Summary ---
:1955 Author Organization [employer] Address [address], [place] [address] Care Team Providers Name Role Phone Alisha Kimball MD Primary Care Provider Reason for Visit Procedure/Equipment (Routine) - Incomplete Specialty Diagnoses / Procedures Referred By Contact Refer red To Contact Diagnoses Screening for osteoporosis Alisha Kimball MD Procedures DEXA Bone Density Spine/Hip [address] [place] [address] Referral ID Status Reason Start Date Expiration Date Visits V isits Requested Authorized [id number] Incomplete 01/03/2020 04/03/2021 1 1 Encounter Details Date Type Department Care Team Description 02/22/2020 [facility] Alisha Kimball Scre ening for Procedure 401 Bone Density osteoporosis [address] [facility] [id number] [place] [id number] Social History Tobacco Use Types Packs/Day Years Used Date Smoking Tobacco: Never Smokeless Tobacco: Never Alcohol Use Standard Drinks/Week Comments No 0 (1 standard drink = 0.6 oz pure alcoho l) Sex Assigned at Date Recorded Not on file documented as of this encounter Plan of Treatment Upcoming Encounters Date Type Specialty Care Team Description 06/09/2022 Appointment General Dentistry Elaine Garcia, [facility] [address] [place], [place] [phone] (Wo rk) documented as of this encounter [...] Volume Narrative 02/22/2020 12:58 PM CDT Indication:Screening In Store Marketing Representative and Model of Instrument: I-lighting Demographics Age: 65 y.o. Gender: female Height [...] Alcohol 3units or more per day (on Lontra):No Currently smoking:No Other pertinent history: Dual-X-ray Absorptiometry [...] osteoporosis documented in this encounter Care Teams Liquor Maker Relationship Specialty Start Date End Date Alisha Kimball MD PCP - General 07/08/05 [address] [place] [address] documented as of this encounter
--- OUTSIDE RECORDS SUMMARY | 2022-05-29 13:29 | XMS_ITS | Encounter Summary ---
:1955 Author Organization [employer] Address [address] [place] [address] Care Team Providers Name Role Phone Alisha Kimball MD Primary Care Provider Encounter Details Date Type Department Care Team Description 04/12/2020 Lab Visit [facility] [address] [place], [place] [address] Social History Tobacco Use [...] Description 06/09/2022 Appointment General Dentistry Elaine Garcia, [facility] [address] [place], [place] [phone] (Wo rk) documented as of this encounter Visit Diagnoses Not on filedocumented in this encounter Care Teams Armored Transport Service Manager Relationship Specialty Start Date End Date Alisha Kimball MD PCP - General 07/08/[address] [place], [place] [phone] documented as of this encounter
--- OUTSIDE RECORDS SUMMARY | 2022-05-29 13:29 | XMS_ITS | Encounter Summary ---
:1955 Author Organization [employer] Address [address] [address] Care Team Providers Name Role Phone Alisha Kimball MD Primary Care Provider Reason for Visit Reason Comments Dental Hygiene none Encounter Details Date Type Department Care Team Description 02/07/2021 Office Visit [facility] Gen Gonzalez [facility] [address] [place] [address] Dental Hygiene (none) Dentistry [facility], Exam [address] [place] [address] Social History Tobacco Use Types [...] agreement with Josue Kerns DDS (License #: [id number]) CHART REVIEW: Reviewed with patient: Medical history, [...] General Dentistry Elaine Garcia [facility] [address] [place] [address] (Wo rk) documented as of this encounter Procedures Procedure Name Priority Date/Time Associated Diagnosis Comme nts PROPHYLAXIS-ADULT Routine 02/07/2021 9:00 AM CDT Chronic perio dontitis, RECALL localized, slight 14 EXISTING PFM CROWN Routine 07/09/2009 12:00 AM PACKAGING DESIGNER documented in this encounter Visit Diagnoses Diagnosis Chronic periodontitis, localized, slight - Primary documented in this encounter Care Teams Instructional Support Services Director Relationship Specialty Start Date End Date Alisha Kimball MD PCP - General 07/08/05 [address] [place] [address] documented as of this encounter
--- OUTSIDE RECORDS SUMMARY | 2022-05-29 13:29 | XMS_ITS | Clinical Summary ---
:1955 Author Organization [employer] Address [address] [place] [address] Care Team Providers Name Role Phone Alisha [...] for each transition of care or referral. [facility] Allergies Active Allergy Reactions Severity Noted Date [...] 10:36 AM Heart palpitations 11/05/2014 12/08/2017 CAREPLAN: [facility] 01/23/2013 06/07/2013 Overview: Background: Engaged in Disease Management-Diabetes: Marisol Cruz RN [phone] Diabetes mellitus, type 2 05/14/2010 12/07/2017 Immunizations Name Administration Dates Next Due Flu Vac (3+ yrs) 04/01/2012, 05/01/2011, 04/18/2010 Influenza IIV3 (Trivalent) Fluzone 03/28/2019 Highdose, 65+ Yrs (71726) Influenza IIV4 (Quadrivalent) 0.5mL 04/11/2018, 05/19/2017, 04/30/2016, (20230) 04/27/2014 Influenza IIV4 (Quadrivalent) Fluad, 04/11/2020 65+ [...] Relation Name Status Comments Father (Age 64) [place] Mother (Age 76) ovarian cancer Brother 1 Alive Brother 2 Alive Brother 3 Alive Brother 4 Alive Brother 5 Alive Maternal Grandfather accident Maternal Grandmother ME Paternal Grandfather ME Paternal Grandmother ME Sister Alive Son 1 Alive Son 2 [...] 01/03/2020 8:07 AM CDT Plan of Treatment Upcoming Encounters Date Type Specialty Care Team Description 06/09/2022 Appointment General Dentistry Elaine Garcia, [facility] [address] [place] [address] (Wo rk) Health Maintenance Due Date Last Done Comments [...] patient 's age to complete this topic Insurance Payer Benefit Plan / Subscriber ID Effective Phone Address T ype Group Dates Unda [facility] [id number] 2017-Pres Commercial DENT[place]AN OF [place] DENTAL ent MEDICARE MEDICARE [id number] 2019-Pres Medi care ent [employer] [place] MEDICARE [id number] 2018-Pres Commercial SUPPLEMENT ent [phone] (Work) Rod Loc Yadira Personal/Family Self 1955 [address] (Home) [place], [place] [phone] (Work) Care Teams Director Human Services Relationship Specialty Start Date End Date Alisha Kimball MD PCP - General 07/08/05 [address] [place] [address]
--- OUTSIDE RECORDS SUMMARY | 2022-05-29 13:29 | XMS_ITS | Encounter Summary ---
:1955 Author Organization [employer] Address [address] [place] [address] Care Team Providers Name Role Phone Alisha Kimball MD Primary Care Provider Reason for Visit Reason Comments BP,ELEVATED Encounter Details Date Type Department Care Team Description 04/11/2020 Telephone [facility] Alisha Remy MD BP,ELEVATED [address] [facility] [address] [place] [address] [place] [address] (Wo rk) Social History Tobacco [...] and schedule. Perfecto Morel 04/12/2020, 8:36 AM TOT Alisha Kimball MD - 04/12/2020 8:29 AM [...] pain, include location): Patient was seen at [facility] today, and had her BP checked. It was 167/136. Was told to call her clinic. What have you tried at home (please specify medication name, if any)? Patient on Losartan. Have you recently been seen for this? Yes: [[facility]: Refer to Symptoms Indicating Need for Triage list to determine urgency level and next steps - if Urgent or Routine, schedule appointment within the appropriate timeframe.If patient wants to speak to an RN, please warm transfer/route to RN for further triage.] [[facility]: Add/verify patient preferred pharmacy is highlighted in blue in the Pharmacy Selection under Meds & Orders] [[facility]: If this call is after 3 p.m., communicate to patient: If we are not able to get back to you by the end of the day and your symptoms worsen, please contact the Careline [phone] OR at .] Is it okay to leave a detailed message on your voicemail? Yes I can transfer you to talk to a Triage Nurse or I am happy to get you scheduled with your primary palliative care specialist or one of their partners for a [...] Description 06/09/2022 Appointment General Dentistry Elaine Garcia, [facility] [address] [place] [address] (Wo rk) documented as of this encounter Visit Diagnoses Diagnosis Essential hypertension (HRC) - Primary Unspecified essential hypertension documented in this encounter Care Teams Energy Conservation Technician Relationship Specialty Start Date End Date Alisha Kimball MD PCP - General 07/08/05 [address] [place] [address] documented as of this encounter
--- OUTSIDE RECORDS SUMMARY | 2022-05-29 13:30 | XMS_ITS | Encounter Summary ---
:1955 Author Organization [employer] Address [address] [place] [address] Care Team Providers Name Role Phone Alisha Kimball MD Primary Care Provider Reason for Visit Reason Comments Consult, New Patient Diabetes Consult/Transfer Care (Routine) - Closed Specialty Diagnoses / Procedures Referred By Contact Refer red To Contact Diagnoses Type 2 diabetes mellitus without complication, without long-term current use of insulin (HRC) Alisha Kimball MD [address] [facility] [place] [address] Referral ID Status Reason Start Date Expiration Date Visits Requ ested Visits Authorized [id number] Closed 07/26/2018 10/25/2019 1 1 Encounter Details Date Type Department Care Team Description 07/28/2018 Office Visit [facility] [address], Type 2 diabetes Endocrinology Clinic MD mellitus without [address] complication, [place] [address] [place], [place] long-term current use [phone] of insulin (HRC) [phone] (Primary Dx) (Work) Social History Tobacco Use Types Packs/Day Years Used Date Smoking Tobacco: Never Smokeless Tobacco: Never Alcohol Use Standard Drinks/Week Comments No 0 (1 standard drink = 0.6 oz pure alcoho l) Sex Assigned at Date Recorded Not on file documented as of this encounter Last Filed Vital Signs Vital Sign Reading Time Taken Comments Blood Pressure 117/78 07/28/2018 1:09 PM CONE PICKER Pulse 60 07/28/2018 1:09 PM CONE PICKER Temperature - - Respiratory Rate - - Oxygen Saturation - - Inhaled Oxygen Concentration - - Weight 84.4 kg (186 lb) 07/28/2018 1:09 PM CONE PICKER Height 162.6 cm (5' 4) 07/28/2018 1:09 PM CONE PICKER Body Mass Index 31.93 07/28/2018 1:09 PM CONE PICKER documented in this encounter Progress Notes Brock [...] PRN. Brock Bolden MD 07/28/2018, 2:45 PM PICKER Marysol Carey, RN - 07/28/2018 1:15 PM CST Discussed during appointment with Dr. Bolden. Marysol Carey, CAITLYN 07/28/2018, 4:44 PM PICKER documented in this encounter Nursing Notes Kian Hoffman, [facility] - 07/28/2018 1:15 PM CST How [...] never used smokeless tobacco. Kian Hoffman CMA PICKER documented in this encounter Plan of Treatment Upcoming Encounters Date Type Specialty Care Team Description 06/09/2022 Appointment General Dentistry Elaine Garcia, [facility] [address] [place] [address] (Wo rk) documented as of this encounter Procedures Procedure Name Priority Date/Time Associated Diagnosis Comme nts HGB A1C,POINT OF Routine 07/28/2018 2:30 PM Type 2 diabetes Re sults for this CARE CONE PICKER mellitus without procedure a re in complication, the results without long-term section. current use of insulin (HRC) documented in this encounter Results (ABNORMAL) Hgb A1c, Point of Care (07/28/2018 2:30 PM CONE PICKER) [facility] gist Method Time Signature Point of [...] Volume Laterality 07/28/2018 2:30 PM 9 4:23 CONE PICKER PM CONE PICKER Brock Bolden MD LAB_1 Performing Organization Address City/State/ZIP Code Phon e Number [facility] [phone] documented in this encounter Visit Diagnoses Diagnosis Type 2 diabetes mellitus without complic ation, without long-term current use of insulin (HRC) - Primary documented in this encounter Care Teams Residential Installer Relationship Specialty Start Date End Date Alisha Kimball MD PCP - General 07/08/[address] [place] [address] documented as of this encounter
--- OUTSIDE RECORDS SUMMARY | 2022-05-29 13:30 | XMS_ITS | Encounter Summary ---
:1955 Author Organization [employer] Address [address], [place] [address] Care Team Providers Name Role Phone Alisha Kimball MD Primary Care Provider Reason for Visit Reason Comments Dental Hygiene cc Encounter Details Date Type Department Care Team Description 10/11/2018 Office Visit [facility] Regina [address] [address] [place] [address] Dental Hygiene (cc) Dentistry [facility], Exam [address] [place], [place] [address] Social History Tobacco Use [...] documented in this encounter Patient Instructions Patient Kesha Louie - 10/11/2018 10:00 AM CDT Your next [...] Dentistry Elaine Garcia, [facility] [address] [place], [place] [phone] (Wo rk) documented as of this encounter Procedures Procedure Name Priority Date/Time Associated Diagnosis Comme nts PERIODIC ORAL EVALUATION Routine 10/11/2018 10:00 AM Gingiviti s CDT PROPHYLAXIS-ADULT RECALL Routine 10/11/2018 10:00 AM Gingiviti s CDT documented in this encounter Visit Diagnoses Diagnosis Gingivitis - Primary Chronic gingivitis, plaque induced documented in this encounter Care Teams Senior Architect/Design Manager Relationship Specialty Start Date End Date Alisha Kimball MD PCP - General 07/08/05 [address] [place] [address] documented as of this encounter
--- OUTSIDE RECORDS SUMMARY | 2022-05-29 13:30 | XMS_ITS | Encounter Summary ---
:1955 Author Organization [employer] Address [address] [place] [address] Care Team Providers Name Role Phone Alisha Kimball MD Primary Care Provider Reason for Visit Reason Comments COVID Screening Encounter Details Date Type Department Care Team Description [facility] [address] [facility] [address] [place] [address] [place], [place] [phone] (Wo rk) Social History Tobacco Use Types [...] Patient information Best number to contact patient: [phone] Reason for Call: COVID Screening/Testing Request In [...] Appointment General Dentistry Elaine Garcia, [facility] [address] [place], [place] [phone] (Wo rk) documented as of this encounter Visit Diagnoses Not on filedocumented in this encounter Care Teams Clinical Outcomes Manager Relationship Specialty Start Date End Date Alisha Kimball MD PCP - General 07/08/05 [address] [place], [place] [phone] documented as of this encounter
--- OUTSIDE RECORDS SUMMARY | 2022-05-29 13:30 | XMS_ITS | Encounter Summary ---
:1955 Author Organization [facility] Address [address] [place] [address] Care Team Providers Name Role Phone Alisha Kimball MD Primary Care Provider Reason for Referral Procedure/Equipment (Routine) - Incomplete Specialty Diagnoses / Procedures Referred By Contact Refer red To Contact Diagnoses Screening for osteoporosis Alisha Kimball MD Procedures DEXA Bone Density Spine/Hip [address] [place] [address] Referral ID Status Reason Start Date Expiration Date Visits V isits Requested Authorized [id number] Incomplete 01/03/2020 04/03/2021 1 1 Reason for Visit Reason Comments ROUTINE HEALTH MAINTENANCE Welcome To Medicare FOLLOW-UP,DIABETES MEDICATION CHECK SKIN LESION left elbow NOISES IN THE EAR ADVANCE DIRECTIVES DISCUSSION pt has one at home Encounter Details Date Type Department Care Team Description 01/03/2020 Office Visit [facility] Alisha Bui, Welcome to Medicare preventive visit (Primary Dx); Practice MD Encounter for routine adult health exami nation without abnormal findings; [address] Type 2 diabetes mellitus without complic ation, without long-term current use of insulin (HRC); [place] [address] [place] [address] Essential hypertension; [phone] Paroxysmal atri al fibrillation (HRC); (Work) Screening [...] can you learn more? 1. Go to https://UBmatrix.Zapier/healthlibrary or Lotaris/Teadslibrary. 2. Enter Y074 in the search box. Current as of: February 22, 2019?Content Version: 12.4 ?? [id number] MyPublisher, Incorporated. Care instructions adapted under license by your healthcare professional. If you have questions abouta medical condition or this instruction, always ask your healthcare professional. MyPublisher, [facility] disclaims any warranty or liability for your [...] can you learn more? 1. Go to https://UBmatrix.Zapier/Pegg'd or Lotaris/Omnireliant. 2. Enter K859 in the search box. Current as of: February 22, 2019?Content Version: 12.4 ?? Topic. Care instructions adapted under license by your healthcare professional. If you have questions abouta medical condition or this instruction, always ask your healthcare professional. Topic disclaims any warranty or liability for your [...] doctor may recommend that you use an okag-tvf-jodqhbz treatment. These include salicylic acid or duct [...] make walking more comfortable. ?? Take an ynmp-ujn-khhuhzr pain medicine, such as acetaminophen (Tylenol), ibuprofen [...] can you learn more? 1. Go to https://UBmatrix.Zapier/healthlibrary or Lotaris/Teadslibrary. 2. Enter K886 in the search box. Current as of: May 03, 2019?Content Version: 12.4 ?? Topic. Care instructions adapted under license by your healthcare professional. If you have questions abouta medical condition or this instruction, always ask your healthcare professional. Topic disclaims any warranty or liability for your [...] covid-19 in July when she was in [place]. Wart left elbow. No treatment. Patient accompanied [...] IgG Antibody (Inhouse) 8. Common wart B07.8 93052 Destruc Benign Lesions; Up 14 Counseling and [...] Team Description 06/09/2022 [facility]ointment [facility] [address] [place] [address] (Wo rk) documented as of this encounter Results DEXA Bone Density Spine/Hip (02/22/2020 9:18 AM CDT) Anatomical Region Laterality Modality Lower Extremity, Spine, Hip, L-Spine Ot er Specimen (Source) Anatomical Location Collection Method / Collectio n Time Received Time / Laterality Volume Narrative 02/22/2020 12:58 PM CDT Indication:Screening Carpenter and Model of Instrument: NSH Holdco Demographics Age: 65 y.o. Gender: female Height [...] Alcohol 3units or more per day (on Caktus):No Currently smoking:No Other pertinent history: Dual-X-ray Absorptiometry (DXA Results) AP spine (L1-L4) Left hip (neck) Left ? ?hip (total) ?? BMD (gm/cm2) 1.229 1.069 1.046 ? T score 1.7 2.0 0.9 ? Z score 3.5 3.5 2.1 ?? %change from previous scan dated: ??11/1 1/10 8.1% ??-11.6% ?? FRAX Score: 10 YR Risk Hip Fracture % ?? Typical threshold to start therapy in [facility] is a 10-year risk of hip fracture >3%. Clinician? s judgment and/or patient preferences may indicate treatment for people with 10-year fractu re probabilities above or below these levels. 10 YR Risk Major Osteoporotic Fracture % ?? Typical threshold to start therapy in [facility] is a 10-year risk of any osteoporotic [...] osteoporosis. FRAX and Fracture Risk Categories in [facility] of major osteoporotic fracture risk (clinical spine, [...] IgG Antibody (Inhouse) (01/03/2020 9:17 AM CDT) [facility] Method Time Signature HPRR-OxG1-Ul Negative Negative 01/03/2020 [facility] G Antibody 3:53 PM CDT LABORATORY Interp SARS CoV-2 0.01 01/03/2020 [facility] IgG Index 3:53 PM CDT LABORATORY SARS The magnitude of 01/03/2020 [facility] CoV-2-IgG the reported 3:53 PM CDT LABORATORY Index Index is not Comment indicative of the amount of antibody present in the patient sample. SARS The SARS-CoV-2 01/03/2020 [facility] CoV-2-IgG IgG assay is 3:53 PM CDT LABORATORY Comment 1 only for use under the Food and Drug Administration's Emergency Use Authorization (EUA). SARS Negative Results 01/03/2020 [facility] CoV-2-IgG do not rule out 3:53 PM CDT LABORATORY Comment 2 SARS-CoV-2 infection, particularly in those who have been in contact with the virus. Follow-up with a molecular diagnostic test should be considered to R/O infection. SARS Results from 01/03/2020 [facility] CoV-2-IgG antibody testing 3:53 PM CDT LABORATORY [...] MD LAB_1 Performing Organization Address City/[facility]/ZIP [facility] Phon e Number [facility] [address] [place] [address] Hemoglobin, Blood (01/03/2020 9:17 AM CDT) athologist Signature Hemoglobin 13.6 12.0 - 15.5 01/03/2020 [facility] g/dL 9:20 AM CDT LABORATORY Specimen Anatomical Collection Method / Collection Time Recei dawn Time (Source) Location / Volume Laterality Blood Venipuncture / 01/03/2020 9:17 01/03/2020 9:17 Unknown AM CDT AM CDT Alisha Kimball MD LAB_1 Performing Organization Address City/[facility] Phon e Number [facility] [address] [place], [place] [phone] (ABNORMAL) ALT (SGPT) (01/03/2020 9:17 AM CDT) P athologist Signature ALT (SGPT) 56 (H) 0 - 55 U/L 01/03/2020 [facility] 3:07 PM CDT CENTRAL LAB Specimen Anatomical Collection Method / Collection Time Recei dawn Time (Source) Location / Volume Laterality Blood Venipuncture / 01/03/2020 9:17 01/03/2020 9:17 Unknown AM CDT AM CDT Alisha Kimball MD LAB_1 Performing Organization Address City/[facility] Phon e Number [facility] CENTRAL LAB [address] [address] (ABNORMAL) Basic Metabolic Panel (01/03/2020 9:17 AM CDT) [facility] Method Time Signature Sodium 140 136 - 145 01/03/2020 [facility] mmol/L 3:07 PM CDT CENTRAL LAB Potassium 4.8 3.5 - 5.1 01/03/2020 [facility] mmol/L 3:07 PM CDT CENTRAL LAB Chloride 108 98 - 109 01/03/2020 [facility] mmol/L 3:07 PM CDT CENTRAL LAB CO2 21 20 - 29 01/03/2020 [facility] mmol/L 3:07 PM CDT CENTRAL LAB Anion Gap 11 7 - 16 01/03/2020 [facility] mmol/L 3:07 PM CDT CENTRAL LAB Calcium 9.4 8.4 - 01/03/2020 [facility] 10.4 3:07 PM CDT CENTRAL LAB mg/dL BUN 18 7 - 26 01/03/2020 [facility] mg/dL 3:07 PM CDT CENTRAL LAB Creatinine 0.90 0.55 - 01/03/2020 [facility] 1.02 3:07 PM CDT CENTRAL LAB mg/dL GFR, Estimated >60 >60 01/03/2020 [facility] mL/min/1. 3:07 PM CDT CENTRAL LAB 73m2 Glucose 132 (H) 70 - 100 01/03/2020 [facility] mg/dL 3:07 PM CDT CENTRAL LAB [...] Kimball MD LAB_1 Performing Organization Address [facility]/ZIP [facility] Ph[place] e Number [facility] C[facility]AL LAB [address] [address] [facility] [address] [phone] (ABNORMAL) Lipid Panel and Direct LDL(If Needed) (01/03/2020 9:17 AM CDT) [facility] Method Time Signature Cholesterol 157 0 - 199 01/03/2020 [facility] mg/dL 3:07 PM CDT CENTRAL LAB Triglyceride 157 (H) <=149 01/03/2020 [facility] mg/dL 3:07 PM CDT CENTRAL LAB HDL Cholesterol 46 >=40 01/03/2020 [facility] mg/dL 3:07 PM CDT CENTRAL LAB LDL, Calculated 80 <130 01/03/2020 [facility] mg/dL 3:07 PM CDT CENTRAL LAB Non HDL Chol, 111 mg/dL 01/03/2020 [facility] Calculated 3:07 PM CDT CENTRAL LAB Cholesterol/HDL 3.4 01/03/2020 [facility] Ratio 3:07 PM CDT CENTRAL LAB Hours Fasting 12 01/03/2020 [facility] 3:07 PM CDT LABORATORY Specimen Anatomical Collection Method / Collection Time Recei dawn Time (Source) Location / Volume Laterality Blood Venipuncture / 01/03/2020 9:17 01/03/2020 9:17 Unknown AM CDT AM CDT Alisha Kimball MD LAB_1 Performing Organization Address City/State/[facility] Code Phon e Number [facility] [address] [address] [facility] [address] [place], [place] [address] [phone] (ABNORMAL) Hgb A1C (01/03/2020 9:17 AM CDT) [facility] Method Time Signature Hemoglobin A1C 7.6 (H) <=5.6 % 01/03/2020 [facility] 1:12 PM CDT CENTRAL LAB Specimen Anatomical Collection Method / Collection Time Recei dawn Time (Source) Location / Volume Laterality Blood Venipuncture / 01/03/2020 9:17 01/03/2020 9:17 Unknown AM CDT AM CDT Narrative [facility] - 01/03/2020 1:12 PM CDT For patients not previously diagnosed with diabetes: 5.7-6.4%: Increased risk for diabetes 6.5% and greater: Diagnostic for diabete s For patients diagnosed with diabetes: <8.0%: Goal of therapy for ages 18-75 Clinicians may recommend a higher or low er goal for specific individuals. Alisha Kimball MD LAB_1 Performing Organization Address City/State/ZIP Code Phon e Number [facility] CENTRAL LAB [address] [address] documented in this encounter Visit Diagnoses Diagnosis Welcome to Medicare preventive visit [facility] Encounter for routine adult health exami nation [...] osteoporosis documented in this encounter Care Teams Chlorinator Operator Relationship Specialty Start Date End Date Alisha Kimball MD PCP - General 07/08/05 [address] [place] [address] documented as of this encounter
--- OUTSIDE RECORDS SUMMARY | 2022-05-29 13:30 | XMS_ITS | Encounter Summary ---
:1955 Author Organization [facility] Address [address] [place] [address] Care Team Providers Name Role Phone Alisha Kimball MD Primary Care Provider Reason for Visit Reason Comments FOLLOW-UP,HEART increased TANNER Encounter Details Date Type Department Care Team Description 08/09/2019 Office Visit [facility] Janice Gill (dyspnea on exertion) (Primary Dx); Cardiology EMILY Whipple Paroxysmal atrial fibrillati on (HRC); [address] [facility] Essential hypertension; [place] [address] Hyperlipidemia, unspecified hyperlipidemia type [phone] Social History Tobacco Use Types Packs/Day Years Used Date Smoking Tobacco: Never Smokeless Tobacco: Never Alcohol Use Standard Drinks/Week Comments No 0 (1 standard drink = 0.6 oz pure alcoho l) Sex Assigned at Date Recorded Not on file documented as of this encounter Last Filed Vital Signs Vital Sign Reading Time Taken Comments Blood Pressure 147/89 08/09/2019 7:34 AM IRONER Pulse 68 08/09/2019 7:34 AM IRONER Temperature - - Respiratory Rate 15 08/09/2019 7:34 AM IRONER Oxygen Saturation 96% 08/09/2019 7:34 AM IRONER Inhaled Oxygen Concentration - - Weight 81.2 kg (179 lb) 08/09/2019 7:34 AM IRONER Height 163.8 cm (5' 4.5) 08/09/2019 7:34 AM IRONER Body Mass Index 30.25 08/09/2019 7:34 AM IRONER documented in this encounter Patient Instructions Patient InstructionsJanice Gill PA-C - 08/09/2019 7:20 AM CST CARDIOLOGY PATIENT INSTRUCTIONS It was a pleasure to see you, Melia. I recommend the following: # Schedule a [...] do not hesitate to contact us at [phone] with any questions or concerns. Regards, Janice Gill PA-C ER documented in this encounter Progress Notes Janice [...] for rate control. She is on Eliquisfor GRTYC2TYIk score of 3. # HTN: Mildly elevated [...] please do not hesitate to contact me. EMILY [facility] ER documented in this encounter Plan of Treatment Upcoming Encounters Date Type Specialty Care Team Description 06/09/2022 Appointment General Dentistry Radha Elaine te Yadira, [facility] [address] [place], [place] [phone] (Wo rk) documented as of this encounter Results TSH with Free T4 (if TSH Abnormal) (04/11/2020 8:48 AM CDT) athologist Signature TSH, Reflex 3.02 0.30 - 04/11/2020 [facility] 4.50 11:53 AM CDT CENTRAL LAB uIU/mL Specimen Anatomical Collection Method / Collection Time Recei dawn Time (Source) Location / Volume Laterality Blood Venipuncture / 04/11/2020 8:48 04/11/2020 8:48 Unknown AM CDT AM CDT Narrative [facility] C[facility] - 04/11/2020 11:53 AM CDT Lab will automatically reflex to Free T4 when TSH results are <0.30 uIU/mL or >4.50 mIU/mL. Janice Gill PA-C LAB_1 Performing Organization Address City/State/ZIP Code Phon e Number [facility] CEN[facility] [address] [address] documented in this encounter Visit Diagnoses Diagnosis TANNER (dyspnea on exertion) - Primary Other dyspnea and respiratory abnormalit y Paroxysmal atrial fibrillation (HRC) Atrial fibrillation Essential hypertension (HRC) Unspecified essential hypertension Hyperlipidemia, unspecified hyperlipidem ia type (HRC) documented in this encounter Care Teams Plate Embosser Relationship Specialty Start Date End Date Alisha Kimball MD PCP - General 07/08/05 [address] [place], [place] [phone] documented as of this encounter
--- OUTSIDE RECORDS SUMMARY | 2022-05-29 13:30 | XMS_ITS | Encounter Summary ---
:1955 Author Organization [facility] Address [address] [place] [address] Care Team Providers Name Role Phone Alisha Kimball MD Primary Care Provider Encounter Details Date Type Department Care Team Description 08/25/2018 Orders Only [facility] Specialty No Center Audiology Primary/Referring, [address] [place] [address] Social History Tobacco Use Types [...] Dentistry Elaine Garcia, [facility] [address] [place] [address] (Wo rk) documented as of this encounter Procedures Procedure Name Priority Date/Time Associated Comments Diagnosis AUDIOLOGY DIAGNOSTIC 08/25/2018 12:00 AM Results for this EQUIPMENT WORKER procedure are i n the results section. documented in this encounter Results AUDIOLOGY DIAGNOSTIC (08/25/2018 12:00 AM EQUIPMENT WORKER) Specimen (Source) Anatomical Location Collection Method / Collectio n Time Received Time / Laterality Volume 08/25/2018 Narrative This result has an attachment that is no t available. Phy No Primary/Referring DUMMY/OTHER/AR documented in this encounter Visit Diagnoses Not on filedocumented in this encounter Care Teams Electric Arc Welder Relationship Specialty Start Date End Date Alisha Kimball MD PCP - General 07/08/05 [address] [place] [address] documented as of this encounter
--- OUTSIDE RECORDS SUMMARY | 2022-05-29 13:30 | XMS_ITS | Encounter Summary ---
:1955 Author Organization [facility] Address [address] [place] [address] Care Team Providers Name Role Phone Carroll Avalos MD Primary Care Provider Reason for Visit Reason Comments Refill metFORMIN XR (GLUCOPHAGE XR) 500 MG 24 hour release tablet; losartan (COZAAR) 50 MG tablet Encounter Details Date Type Department Care Team Description 02/01/2019 Telephone [facility] Carroll Avalos MD Refill (metFORMIN XR Practice [address] (GLUCOPHAGE XR) 500 MG [address] [place] [address] 24 hour release tablet; [place] [address] losartan (COZAAR) 50 MG [phone] tablet) Social History Tobacco Use Types Packs/Day [...] K check) Last qualifying visit: 12/12/2018 (in [facility]) Next scheduled visit: None Last ordered by CARROLL AVALOS K: 04/27/2018 (280 days ago) QTY: 90, Refills: 2, Sig: take 1 tablet by mouth every day (changed but equivalent) Cr: 1.02 mg/dL on 12/02/2018 K: 4.6 mEq/L on 12/02/2018 Powered by CloudJay, Reference: [id number], 02/01/2019 11:29:51 AM Luis Eduardo NOBLE: ARNOLD REFILL RN ([id number]) metFORMIN XR (GLUCOPHAGE XR) 500 MG 24 hour release tablet Metformin -> Refill x 6 months, qty: 360, refills: 1 (until due for an office visit) Last qualifying visit: 12/12/2018 (in [facility]) Next scheduled visit: None Last ordered by CARROLL AVALOS K: 10/24/2018 (100 days ago) QTY: 360, Refills: 0, Sig: take 4 tabletsby mouth daily with breakfast (changed but equivalent) Cr: 1.02 mg/dL on 12/02/2018 Powered by CloudJay, Reference: [id number], 02/01/2019 11:29:51 AM CDT, Pool: ARNOLD AMEZQUITA RN ([id number]) Electronically signed by Jorge, [employer] Prov Query at 02/01/2019 1:16 PM CDT Mary De La O - 02/01/2019 11:27 AM CDT Patient needs this sent daniel today. documented in this encounter Plan of Treatment Upcoming Encounters Date Type Specialty Care Team Description 06/09/2022 Appointment General Dentistry Elaine Garcia, [facility] [address] [place], [place] [phone] (Wo rk) documented as of this encounter Visit Diagnoses Not on filedocumented in this encounter Care Teams Electric Sign Wirer Relationship Specialty Start Date End Date Carroll Avalos MD PCP - General 07/08/05 [address] [place], [place] [phone] documented as of this encounter
--- OUTSIDE RECORDS SUMMARY | 2022-05-29 13:30 | XMS_ITS | Encounter Summary ---
:1955 Author Organization [facility] Address [address], [place] [address] Care Team Providers Name Role Phone Carroll Avalos MD Primary Care Provider Reason for Visit Reason Comments Refill metFORMIN XR (GLUCOPHAGE XR) 500 MG 24 hour release tablet [Pharmacy Med Name: METFORMIN HCL ER 500 MG TABL ET] Encounter Details Date Type Department Care Team Description 07/03/2019 Refill [facility] Carroll Avalos MD Refill (metFORMIN XR Practice [address] (GLUCOPHAGE XR) 500 MG [address] [place] [address] 24 hour release tablet [place], [place] [id number] [Pharmacy Med Name: [phone] METFORMIN HCL ER 500 MG TABLET]) Social [...] CST per standing order Erlinda Dickerson RN TOP LINER HELPER Interface, Out Surescripts Prov Query - 07/03/2019 1:51 AM CST metFORMIN XR (GLUCOPHAGE XR) 500 MG 24 hour release tablet [Pharmacy Med Name: METFORMIN HCL ER 500 MG TABLET] Metformin -> Refill x 3 months (courtesy refill. overdue for an office visit) Last qualifying visit: 12/12/2018 (in [facility]) Next scheduled visit: None Last ordered by CARROLL AVALOS: 02/01/2019 (152 days ago) QTY: 360, Refills: 1, Sig: take 4 tabletsby mouth daily with breakfast. (unchanged) Cr: 1.02 mg/dL on 12/02/2018 Powered by Personal Web Systems, Reference: [id number], 07/03/2019 1:51:36 AM HOT TOP LINER HELPER, Pool: ARNOLD REFILL RN ([id number]) TOP LINER HELPER documented in this encounter Plan of Treatment Upcoming Encounters Date Type Specialty Care Team Description 06/09/2022 Appointment General Dentistry Elaine Garcia, [facility] [address] [place], [place] [phone] (Wo rk) documented as of this encounter Visit Diagnoses Not on filedocumented in this encounter Care Teams Needle Leader Relationship Specialty Start Date End Date Carroll Avalos MD PCP - General 07/08/05 [address] [place] [phone] documented as of this encounter
--- OUTSIDE RECORDS SUMMARY | 2022-05-29 13:30 | XMS_ITS | Encounter Summary ---
:1955 Author Organization [facility] Address [address] [place] [address] Care Team Providers Name Role Phone Carroll Avalos MD Primary Care Provider Reason for Visit Reason Comments Refill metoprolol succinate (TOPROL -XL) 200 MG 24 hour release tablet [Pharmacy Med Name: METOPROLOL SUCC ER 200 MG TAB] Encounter Details Date Type Department Care Team Description 01/23/2019 Refill [facility] Carroll Avalos MD Refill (metoprolol Practice [address] succinate (TOPROL-XL) [address] [place] [address] 200 MG 24 hour release [place], [place] [phone] tablet [Pharmacy Med [phone] Name: MET OPROLOL SUCC ER 200 MG [...] office visit) Last qualifying visit: 12/12/2018 (in [facility]) Next scheduled visit: None Last ordered by CARROLL AVALOS K: 05/04/2018 (264 days ago) QTY: 90, Refills: 2, Sig: take 1 tablet by mouth daily at bedtime (changed but equivalent) Powered by FanDuel, Reference: [id number], 01/23/2019 7:41:13 AM CDT, Pool: ARNOLD REFILL RN ([id number]) documented in this encounter Plan of Treatment Upcoming Encounters Date Type Specialty Care Team Description 06/09/2022 Appointment General Dentistry Elaine Garcia, [facility] [address] [place], [place] [phone] (Wo rk) documented as of this encounter Visit Diagnoses Diagnosis Essential hypertension (HRC) Unspecified essential hypertension documented in this encounter Care Teams Scrap Handler Relationship Specialty Start Date End Date Carroll Avalos MD PCP - General 07/08/[address] [place], [place] [phone] documented as of this encounter
--- OUTSIDE RECORDS SUMMARY | 2022-05-29 13:30 | XMS_ITS | Encounter Summary ---
:1955 Author Organization [facility] Address [address] [place] [address] Care Team Providers Name Role Phone Carroll Avalos MD Primary Care Provider Reason for Visit Reason Comments Refill metFORMIN XR (GLUCOPHAGE XR) 500 MG 24 hour release tablet [Pharmacy Med Name: METFORMIN ER 500 MG TABLET] Encounter Details Date Type Department Care Team Description 10/21/2018 [facility] Refill (metFORMIN XR [address] [facility] [address] (GLUCOPHAGE XR) 500 [place] [address] [place] [address] 24 hour release tablet [phone] (Wo rk) [Pharmacy Med Name: METFORMIN ER [...] Cr check) Last qualifying visit: 12/07/2017 (in [facility]) Next scheduled visit: None Last ordered by CARROLL AVALOS K: 07/25/2018 (88 days ago) QTY: 360, Refills: 0, Sig: take 4 tablets by mouth daily with breakfast (unchanged) Cr: 0.86 mg/dL on 11/26/2017 HBA1C: 7.5 % on 07/28/2018 Powered by [employer] Gaming, Reference: [id number], 10/21/2018 12:52:35 AM CDT, Pool: ARNOLD AMEZQUITA RN ([id number]) Interface, Out NextG Networks Query - 10/21/2018 12:52 AM CDT The following lab order(s) may be associated with the Result Note below: AST Notes Recorded by Dallas Nguyen RN on 11/26/2017 at 12:44 PM Letter sent with normal AST/ALT lab results. Dallas Nguyen RN 11/26/2017, 12:44 PM Interface, Out [employer] Query - 10/21/2018 12:52 AM CDT The following lab order(s) may be associated with the Result Note below: HGB A1C,POINT OF CARE Notes recorded by Marysol Carey, RN on 07/28/2018 at 4:44 PM FRONT DESK REPRESENTATIVE Discussed during appointment with Dr. Bolden. Marysol Carey RN 07/28/2018, 4:44 PM documented in this encounter Plan of Treatment Upcoming Encounters Date Type Specialty Care Team Description 06/09/2022 Appointment General Dentistry Elaine Garcia, [facility] [address] [place], [place] [phone] (Wo rk) documented as of this encounter Visit Diagnoses Not on filedocumented in this encounter Care Teams Coal Weigher Relationship Specialty Start Date End Date Carroll Avalos MD PCP - General 07/08/05 [address] [place] [address] documented as of this encounter
--- OUTSIDE RECORDS SUMMARY | 2022-05-29 13:30 | XMS_ITS | Encounter Summary ---
:1955 Author Organization [facility] Address [address] [place] [address] Care Team Providers Name Role Phone Alisha Kimball MD Primary Care Provider Encounter Details Date Type Department Care Team Description 08/18/2019 Office Visit [facility] Dyspn ea on exertion Cardiac Non-Invasive Lab (Primary Dx) [address] [place], [place] [phone] Social History Tobacco Use Types Packs/Day Years [...] within one week. Please follow up with [facility] if you have not received your test results. MACHINE OPERATOR documented in this encounter Progress Notes Fernando [...] (FLONASE) 50 MCG/ACT nasal solution Place 1 [place] into both nostrils daily. decreaseto 1 spray [...] will follow up with Janice Taveras at [facility]. Discharge Instructions: follow up with Kaley Gill Test done with risk investigator present: no 22 gauge IV catheter inserted by WP in the left antecubital. IV site appears: normal with intact catheter. IV D/C'd by:.MR. Fernando Nicholas Benvadim Janice Reed PA-C - 08/18/2019 8:00 AM CST Please let Melia know great news, her stress did not show any evidence of ischemia/infarction suggesting blockages. She has excellent functional capacity for her age. Is she still experiencing SOB episodes? Janice Gill PA-C Angie Watkins RN - 08/18/2019 8:00 AM CST Called [...] recommendations. Angie Fong RN 08/28/2019, 2:52 PM MACHINE OPERATOR documented in this encounter Plan of Treatment Upcoming Encounters Date Type Specialty Care Team Description 06/09/2022 Appointment General Dentistry Elaine Garcia, [facility] [address] [place] [address] (Wo rk) documented as of this encounter Procedures Procedure Name Priority Date/Time Associated Comments Diagnosis EJECTION FRACTION Routine 08/18/2019 8:14 AM Resu lts for this TUFT MACHINE OPERATOR procedure are i n the results section. CARDIAC STRESS Routine 08/18/2019 8:14 AM Dyspnea on Results for this ECHOCARDIOGRAM TUFT MACHINE OPERATOR exertion procedure are in the results section. documented in this encounter Results EJECTION FRACTION (08/18/2019 8:14 AM TUFT MACHINE OPERATOR) P athologist Signature EF 60 % PROSOLV EF test type ECHO PROSOLV Specimen (Source) Anatomical Collection Method Collection Time Re ceived Time Location / / Volume Laterality 08/18/2019 8:14 AM TUFT MACHINE OPERATOR Janice Gill PA-C [facility] LICENSED PRACTICAL NURSE/RH Performing Organization Address City/State/ZIP Code Phon e Number PROSOLV [address] [place] [address] CARDIAC TREADMILL STRESS ECHOCARDIOGRAM (08/18/2019 8:14 AM TUFT MACHINE OPERATOR) Specimen (Source) Anatomical Collection Method Collection Time Re ceived Time Location / / Volume Laterality 08/18/2019 8:14 AM TUFT MACHINE OPERATOR Narrative PROSOLV - 08/18/2019 10:40 AM TUFT MACHINE OPERATOR Contrast:Optison 3.0 ml ?Contrast Allergy:NO Indication: SOB [...] ?? IV Information: IV Inserted By: ?Sue Gonzalez RN IV Site: ? Left Antecub ital IV Site Appearance: ??Normal post mini ter ?removal IV Size: ? 22G IV Removed By: ? Fernando Gunderson er, ExP IV Other: ? Treadmill Stress [...] 133 85.8 % [place] [id number] = Resting BP: 140 / 88 Peak [...] Number PROSOLV [address] [place] [address] documented in this encounter Visit Diagnoses Diagnosis Dyspnea on exertion - Primary Other dyspnea and respiratory abnormalit y documented in this encounter Care Teams Radio Repair Teacher Relationship Specialty Start Date End Date Alisha Kimball MD PCP - General 07/08/05 [address] [place] [address] documented as of this encounter
--- OUTSIDE RECORDS SUMMARY | 2022-05-29 13:30 | XMS_ITS | Encounter Summary ---
:1955 Author Organization [employer] Address [address] [place] [address] Care Team Providers Name Role Phone Alisha Kimball MD Primary Care Provider Reason for Visit Reason Comments Lab Orders Needed Encounter Details Date Type Department Care Team Description 11/14/2018 [facility] Orders Needed [address] [place] [address] [place], [place] [phone] (Wo rk) Social History Tobacco Use Types [...] outside of our family of care? (Ex. [facility]) No Orders - All Orders [Appt Center: If this call is after 3 p.m., communicate to patient: If we are not able to get back to you by the end of the day and your symptoms worsen please contact the Careline at [phone] OR at .] What order (Lab, Radiology, Specialty, DME, etc) is being requested? Pt requesting A1C labs prior to [facility] on 12/12 Why is this order being requested? Pt wanting to go over lab results at [facility] Have you been seen recently for this [...] Elaine Garcia, [facility] [address] [place] [address] (Wo rk) documented as of this encounter Results (ABNORMAL) Basic Metabolic Panel (12/02/2018 7:34 AM CDT) [facility] Method Time Signature Sodium 138 136 - [...] mg/dL GFR, Estimated 58 (L) >60 12/02/2018 [facility] mL/min/1. 11:30 AM CDT CENTRAL LAB 73m2 GFR, Est If >60 >60 12/02/2018 [facility] mL/min/1. 11:30 AM CDT CENTRAL LAB Belgian 73m2 Glucose 108 (H) 70 - 100 12/02/2018 [facility] mg/dL 11:30 AM CDT CENTRAL LAB Comment: The given reference range is fo r the fasting state. Non-fasting reference range for glucose is 70 - 180 mg/dL. Hours Fasting 12 12/02/2018 11:30 AM CDT [facility] Specimen Anatomical Collection Method / Collection Time Recei dawn Time (Source) Location / Volume Laterality Blood Venipuncture / 12/02/2018 7:34 12/02/2018 7:34 Unknown AM CDT AM CDT Narrative [facility] CENTRAL LAB - 12/02/2018 11:30 AM CDT [...] Organization Address City/State/ZIP Code Phon e Number [facility] CENTRAL LAB [address] [facility] [address] [place], [place] [phone] 0 [phone], [facility] Lipid Panel and Direct LDL(If Needed) (12/02/2018 7:34 AM CDT) [facility] Method Time Signature Cholesterol 167 0 - 199 12/02/2018 [facility] mg/dL 11:30 AM CDT CENTRAL LAB Triglyceride 146 <=149 12/02/2018 [facility] mg/dL 11:30 AM CDT CENTRAL LAB HDL Cholesterol 44 >=40 12/02/2018 [facility] mg/dL 11:30 AM CDT CENTRAL LAB LDL, Calculated 94 <130 12/02/2018 [facility] mg/dL 11:30 AM CDT CENTRAL LAB Non HDL Chol, 123 <=159 12/02/2018 [facility] Calculated mg/dL 11:30 AM CDT CENTRAL LAB Cholesterol/HDL 3.8 12/02/2018 [facility] Ratio 11:30 AM CDT CENTRAL LAB Hours Fasting 12 12/02/[address] [facility] 11:30 AM CDT Specimen Anatomical Collection Method / Collection Time Recei dawn Time (Source) Location / Volume Laterality Blood Venipuncture / 12/02/2018 7:34 12/02/2018 7:34 Unknown AM CDT AM CDT Alisha Kimball MD LAB_1 Performing Organization Address City/[facility] Phon e Number [facility] [address] [facility] [address] [place] [address], [facility] (ABNORMAL) Hgb A1C (12/02/2018 7:34 AM CDT) [facility] gist Method Time Signature Hemoglobin A1C 6.7 (H) <=5.6 % 12/02/2018 [facility] 12:44 PM CDT CENTRAL LAB Specimen Anatomical Collection Method / Collection Time Recei dawn Time (Source) Location / Volume Laterality Blood Venipuncture / 12/02/2018 7:34 12/02/2018 7:34 Unknown AM CDT AM CDT Narrative [facility] - 12/02/2018 12:44 PM CDT For patients not previously diagnosed with diabetes: 5.7-6.4%: Increased risk for diabetes 6.5% and greater: Diagnostic for diabete s For patients diagnosed with diabetes: <8.0%: Goal of therapy for ages 18-75 Clinicians may recommend a higher or low er goal for specific individuals. Alisha Kimball MD LAB_1 Performing Organization Address City/[facility] Phon e Number [facility] [address] [address] documented in this encounter Visit Diagnoses Diagnosis Type 2 diabetes mellitus without complic ation, without long-term current use of insulin (HRC) - Primary Screening for diabetes mellitus documented in this encounter Care Teams Manager Compensation Relationship Specialty Start Date End Date Alisha Kimball MD PCP - General 07/08/05 [address] [facility] [place] [address] documented as of this encounter
--- OUTSIDE RECORDS SUMMARY | 2022-05-29 13:30 | XMS_ITS | Encounter Summary ---
:1955 Author Organization [facility] Address [address] [address] Care Team Providers Name Role Phone Alisha Kimball MD Primary Care Provider Reason for Visit Reason Comments Dental Hygiene cc none Encounter Details Date Type Department Care Team Description 02/09/2019 Office Visit [facility] Regina Guaman Dental Hygiene (cc Dentistry [address] [facility] none) [address] [place] [phone] Social History Tobacco Use Types Packs/Day Years [...] Description 06/09/2022 Appointment General Dentistry Elaine Garcia, [facility] [address] [place], [place] [phone] (Wo rk) documented as of this encounter Procedures Procedure Name Priority Date/Time Associated Diagnosis Comme nts PROPHYLAXIS-ADULT Routine 02/09/2019 9:00 AM CDT Gingivitis RECALL documented in this encounter Visit Diagnoses Diagnosis Gingivitis - Primary Chronic gingivitis, plaque induced documented in this encounter Care Teams Profiling Machine Set Up Operator Tool Relationship Specialty Start Date End Date Alisha Kimball MD PCP - General 07/08/[address] [place] [address] documented as of this encounter
--- OUTSIDE RECORDS SUMMARY | 2022-05-29 13:30 | XMS_ITS | Encounter Summary ---
:1955 Author Organization [facility] Address [address] [place] [address] Care Team Providers Name Role Phone Carroll Avalos MD Primary Care Provider Reason for Visit Reason Comments Refill atorvastatin (LIPITOR) 10 MG tablet [Pharmacy Med Name: ATORVASTATIN 10 MG TABLET] Encounter Details Date Type Department Care Team Description [facility] Refill (atorvastatin [facility] [address] (LIPITOR) 10 [place] [address] [place] [address] [Pharmacy Med Name: [phone] (Wo rk) ATORVASTATIN 10 MG TABLET]) Social History Tobacco Use Types Packs/Day Years Used Date Smoking Tobacco: Never Smokeless Tobacco: Never Alcohol Use Standard Drinks/Week Comments No 0 (1 standard drink = 0.6 oz pure alcoho l) Sex Assigned at Date Recorded Not on file documented as of this encounter Nursing Notes Interface, Out Gumhouseripts Prov Query - 08/16/2019 12:23 PM CST The patient chart could not be locked at 08/16/2019 12:23 PM by [employer] in order to process this refill request. Please try re-routing to attempt to retry processing through [employer]. ON JUNCTURE GRINDER Mickie Welsh RN - 08/16/2019 12:21 PM CST Channel [place] discussed with pt. Pt states she needs both metformin and atorvastatin refilled. Pt states she takes 5mg of atorvastatin daily. Pt is going out of town for 2 weeks to [place] but then will schedule follow up with pcp when she returns. Mickie Welsh RN 08/16/2019, 12:23 PM ON JUNCTURE GRINDER Meaghan Briggs RN - 08/16/2019 12:00 PM [...] DAY Meaghan Briggs RN 08/16/2019, 12:00 PM ON JUNCTURE GRINDER Interface, Out Surescripts Prov Query - 08/15/2019 6:31 PM CST atorvastatin (LIPITOR) 10 MG tablet [Pharmacy Med Name: ATORVASTATIN 10 MG TABLET] Miscellaneous - 12 Month Visit -> Refill x 6 months, qty: 90, refills: 1 (until due for an office visit) Last qualifying visit: 12/12/2018 (in [facility]) Next scheduled visit: None Last ordered by CARROLL AVALOS K: 02/01/2018 (560 days ago) QTY: 90, Refills: 3, Sig: take 1 tablet by mouth every day (unchanged) Powered by [employer], Reference: [id number], 08/15/2019 6:31:46 PM FUSION JUNCTURE GRINDER, Pool: ARNOLD REFILL RN ([id number]) ON JUNCTURE GRINDER documented in this encounter Plan of Treatment Upcoming Encounters Date Type Specialty Care Team Description 06/09/2022 Appointment General Dentistry Elaine Garcia, [facility] [address] [place], [place] [phone] (Wo rk) documented as of this encounter Visit Diagnoses Not on filedocumented in this encounter Care Teams Production Technologist Relationship Specialty Start Date End Date Carroll Avalos MD PCP - General 07/08/05 [address] [place], [place] [phone] documented as of this encounter
--- OUTSIDE RECORDS SUMMARY | 2022-05-29 13:30 | XMS_ITS | Encounter Summary ---
:1955 Author Organization [employer] Address [address] [place] [address] Care Team Providers Name Role Phone Alisha Kimball MD Primary Care Provider Reason for Visit Reason Comments BP CHECK,NURSE SHOT,FLU Encounter Details Date Type Department Care Team Description 03/28/2019 Nursing Visit [facility] iamert hypertension; Department Encounter for immunization [address] [place], [place] [address] Social History Tobacco Use [...] can you learn more? 1. Go to [email or web address] or [email or web address]. 2. Enter X567 in the search box. Current as of: January 23, 2018 Content Version: 12.0 ?? [id number] [employer]. Care instructions adapted under license by your healthcare professional. If you have questions about a medical condition or this instruction, always ask your healthcare professional. [employer] disclaims any warranty or liability for your [...] Not at goal today. Since normal at [facility], continue to watch. She will [...] Elaine Garcia, [facility] [address] [place], [place] [phone] (Wo rk) documented as of this encounter Visit Diagnoses Diagnosis Essential hypertension (HRC) Unspecified essential hypertension Encounter for immunization Need for other specified prophylactic va ccination against single bacterial disease documented in this encounter Care Teams District Administrative Assistant Relationship Specialty Start Date End Date Alisha Kimball MD PCP - General 07/08/05 [address] [place], [place] [phone] documented as of this encounter
--- OUTSIDE RECORDS SUMMARY | 2022-05-29 13:30 | XMS_ITS | Encounter Summary ---
:1955 Author Organization [facility] Address [address] [place] [address] Care Team Providers Name Role Phone Alisha Kimball MD Primary Care Provider Reason for Visit Reason Comments DIZZINESS VOMITING Encounter Details Date Type Department Care Team Description 08/21/2018 Nurse Triage Careline Unassigned, DIZZINESS; VOMITING [address] [place], [place] [address] [place] [address] [place] [address] Social History Tobacco Use Types Packs/Day Years Used Date Smoking Tobacco: Never Smokeless Tobacco: Never Alcohol Use Standard Drinks/Week Comments No 0 (1 standard drink = 0.6 oz pure alcoho l) Sex Assigned at Date Recorded Not on file documented as of this encounter Nursing Notes Brandee Granger RN - 08/21/2018 8:23 AM CST Verified [...] right side, vomited. Protocols used: DIZZINESS - [id number] Plan: Pt to be seen in the ER. Pt verbalizes understanding and agrees with plan. Advised patient/caller to call back CareLine if there are further questions or concerns or to be seen if situation becomes emergent. The CareLine is available 25/01. Brandee Granger RN 08/21/2018, 8:34 AM ETRICIAN Cheyenne Gutierrez - 08/21/2018 8:21 AM CST Verified patient identity using three identifiers: Yes Caller's relationship to patient: Self At which care system or clinic is the patient normally seen? [facility] Symptoms Describe the reason for call/symptoms (include location and duration if applicable): Last two days have been experiencing dizziness. Feel a little pressure on left side of ear. This morning felt very dizzy, and has vomiting this morning. Plan:Caller transferred directly to CareLine nurse. ETRICIAN documented in this encounter Plan of Treatment Upcoming Encounters Date Type Specialty Care Team Description 06/09/2022 Appointment General Dentistry Elaine Garcia, [facility] [address] [place] [address] (Wo rk) documented as of this encounter Visit Diagnoses Not on filedocumented in this encounter Care Teams Patient Accounts Specialist Relationship Specialty Start Date End Date Alisha Kimball MD PCP - General 07/08/05 [address] [place] [address] documented as of this encounter
--- OUTSIDE RECORDS SUMMARY | 2022-05-29 13:30 | XMS_ITS | Encounter Summary ---
:1955 Author Organization [employer] Address [address] [place] [address] Care Team Providers Name Role Phone Alisha Kimball MD Primary Care Provider Reason for Visit Reason Comments Routine Eye Exam RAMIN 01/19 . Patient s tates no visual changes or problems. States that she do es use systane for dry eyes. Has some allergies. Using otc re aders. Diabetic Exam, Yearly BS-controlled with oral meds . BS-105 this AM. Last A1C 6.7 11/2018. [id number] Encounter Details Date Type Department Care Team Description 01/24/2019 Office Visit [facility] Eric Keller, RAJEEV Diabetes type 2, no ocular involvement ( HRC) (Primary Dx); [address] [place] [address] [place], [place] [phone] [address] Social History Tobacco Use Types Packs/Day Years Used Date Smoking Tobacco: Never Smokeless Tobacco: Never Alcohol Use Standard Drinks/Week Comments No 0 (1 standard drink = 0.6 oz pure alcoho l) Sex Assigned at Date Recorded Not on file documented as of this encounter Patient Instructions Patient InstructionsEric Keller OD - 01/24/2019 10:00 AM CDT No diabetic eye disease. Healthy stable eyes overall Return 1 year documented in this encounter Progress Notes Eric Keller OD - 01/24/2019 10:00 AM CDT HPI Chief Complaint Patient presents with ??? Routine Eye Exam RAMIN 01/19 . Patient states no visual changes or problems. States that she does use systane for dry eyes. Has some allergies. Using otc readers. ??? Diabetic Exam, Yearly BS-controlled with oral meds. BS-105 this AM. Last A1C 6.7 11/2018. [id number] Routine Eye Exam Loc [place] is a [...] Description 06/09/2022 Appointment General Dentistry Elaine Garcia, [facility] [address] [place] [address] (Wo rk) documented as of this encounter Visit Diagnoses Diagnosis Diabetes type 2, no ocular involvement ( HRC) - Primary Presbyopia documented in this encounter Care Teams Content Development Specialist Relationship Specialty Start Date End Date Alisha Kimball MD PCP - General 07/08/05 [address] [place], [place] [phone] documented as of this encounter
--- OUTSIDE RECORDS SUMMARY | 2022-05-29 13:30 | XMS_ITS | Encounter Summary ---
:1955 Author Organization [employer] Address [address], [place] [address] Care Team Providers Name Role Phone Alisha Kimball MD Primary Care Provider Reason for Visit Reason Comments Ed Discharge Follow-up Encounter Details Date Type Department Care Team Description 09/21/2018 Telephone [facility] Alisha Kimball MD Ed Discharge Follow-up Practice [address] [place] [address] [place], [place] [phone] Social History Tobacco Use Types Packs/Day Years [...] Elaine Garcia, [facility] [phone] [place] [address] (Wo rk) documented as of this encounter Visit Diagnoses Not on filedocumented in this encounter Care Teams Last Repairer Helper Relationship Specialty Start Date End Date Alisha Kimball MD PCP - General 07/08/05 [address] [place], [place] [phone] documented as of this encounter
--- OUTSIDE RECORDS SUMMARY | 2022-05-29 13:30 | XMS_ITS | Encounter Summary ---
:1955 Author Organization [facility] Address [address], [place] [address] Care Team Providers Name Role Phone Carroll Avalos MD Primary Care Provider Reason for Visit Reason Comments Refill ELIQUIS 5 MG tablet Encounter Details Date Type Department Care Team Description 06/15/2019 Telephone [facility] Carroll Avalos MD Refill (ELIQUIS 5 MG Practice [address] tablet) [address] [place] [address] [place], [place] [phone] Social History Tobacco Use Types Packs/Day Years [...] be delegated. Last qualifying visit: 12/12/2018 (in [facility]) Next scheduled visit: None Last ordered by CARROLL AVALOS K: 06/16/2018 (364 days ago) QTY: 180, Refills: 3, Sig: take 1 tablet by mouth twice a day (changed but equivalent) Powered by [employer], Reference: [id number], 06/15/2019 10:51:31 AM Luis Eduardo COREY: ARNOLD AMEZQUITA RN ([id number]) RVISOR TELEPHONE ANSWERING SERVICE Rocio Garcia - 06/15/2019 10:49 AM CST Patient is leaving [facility] on 06/18/19 thru 08/05/18 and currently does not have enough medication to get her thru 08/05/19. RVISOR TELEPHONE ANSWERING SERVICE documented in this encounter Plan of Treatment Upcoming Encounters Date Type Specialty Care Team Description 06/09/2022 Appointment General Dentistry Elaine Garcia, [facility] [address] [place], [place] [phone] (Wo rk) documented as of this encounter Visit Diagnoses Diagnosis Paroxysmal atrial fibrillation (HRC) Atrial fibrillation documented in this encounter Care Teams Post Tensioning Ironworker Helper Relationship Specialty Start Date End Date Carroll Avalos MD PCP - General 07/08/05 [address] [place], [place] [phone] documented as of this encounter
--- OUTSIDE RECORDS SUMMARY | 2022-05-29 13:30 | XMS_ITS | Encounter Summary ---
:1955 Author Organization [facility] Address [address] [place] [address] Care Team Providers Name Role Phone Alisha Kimball MD Primary Care Provider Reason for Visit Reason Comments Blood Pressure, low [facility] Encounter Details Date Type Department Care Team Description 09/21/2018 Nurse Triage [facility] Alisha Kimball, Blood Pr essure, low; Practice [facility] [address] [facility]. [address] [place] [address] [place], [place] [phone] [facility] Social History Tobacco Use Types Packs/Day [...] Lozano RN - 09/21/2018 3:22 PM CDT Patient/director of patient care request: Input needed ongoing symptoms Specific Request: patient states her B/P has been low like this for months so does not feel she needs SDA and occasional dizziness when first rising in am. She prefers to DC one of her B/P medications.Also to note has lost weight with [facility] weight loss program. Clinician sign order [...] BP monitor) In S office and at [facility] 4. HISTORY: Do you have a [...] menstrual period? na Protocols used: LOW BLOOD [id number] Vero Robin - 09/21/2018 3:03 PM CDT Symptoms [Aircraft Engine Dismantler/Appt Center: If this call is after 3 p.m., communicate to patient: If we are not able to get back to you by the end of the day and your symptoms worsen, please contact the Careline [phone] OR at .] [Aircraft Engine Dismantler/Appt Center: Refer to Symptoms Indicating Need for [...] you recently been seen for this? No [Aircraft Engine Dismantler/Appt Center: Add/verify patient preferred pharmacy is highlighted [...] General Dentistry Elaine Garcia, [facility] [address] [place] [address] (Wo rk) documented as of this encounter Visit Diagnoses Not on filedocumented in this encounter Care Teams Bobbin Cleaner Hand Relationship Specialty Start Date End Date Alisha Kimball MD PCP - General 07/08/05 [address] [place] [address] documented as of this encounter
--- OUTSIDE RECORDS SUMMARY | 2022-05-29 13:30 | XMS_ITS | Encounter Summary ---
:1955 Author Organization [employer] Address [address] [place] [address] Care Team Providers Name Role Phone Carroll Kimball MD Primary Care Provider Encounter Details Date Type Department Care Team Description 12/16/2018 Lab Visit [facility] Type 2 diabetes mellitus [address] [facility] without complication, [place], [place] [address] without long-term current [phone] use of insulin (HRC) Social History Tobacco [...] General Dentistry Elaine Garcia, [facility] [address] [place] [address] (Wo rk) documented as of this encounter Procedures Procedure Name Priority Date/Time Associated Diagnosis Comme nts ALBUMIN/CREAT RATIO Routine 12/16/2018 7:55 AM Type 2 diabetes Results for this CDT mellitus without procedure a re in complication, the results without long-term section. current use of insulin (HRC) documented in this encounter Results (ABNORMAL) Microalbumin/Creatinine Ratio (12/16/2018 7:55 AM CDT) [facility] Method Time Signature Albumin, 64.8 mg/L 12/16/2018 [facility] Urine, Random 4:17 PM CDT CENTRAL LAB Creatinine, 209 >20 mg/dL 12/16/2018 [facility] Urine, Random 4:17 PM CDT CENTRAL LAB Albumin/Creati 31 (H) <30 mg/g 12/16/2018 [facility] Ratio, 4:17 PM CDT CENTRAL LAB Urine, Random Specimen Anatomical Collection Method Collection Time Receive d Time (Source) Location / / Volume Laterality Urine,random 12/16/2018 7:55 AM 9 7:55 CDT AM CDT Carroll Kimball MD LAB_1 Performing Organization Address City/State/ZIP Code Phon e Number [facility] [address] [address] documented in this encounter Visit Diagnoses Diagnosis Type 2 diabetes mellitus without complic ation, without long-term current use of insulin (HRC) documented in this encounter Care Teams Baking Assistant Relationship Specialty Start Date End Date Carroll Kimball MD PCP - General 07/08/05 [address] [place] [address] documented as of this encounter
--- OUTSIDE RECORDS SUMMARY | 2022-05-29 13:30 | XMS_ITS | Encounter Summary ---
:1955 Author Organization [facility] Address [address] [place] [address] Care Team Providers Name Role Phone Alisha Kimball MD Primary Care Provider Reason for Referral Procedure/Equipment (Routine) - Incomplete Specialty Diagnoses / Procedures Referred By Contact Refer red To Contact Procedures Alisha Kimball MD MM Mammogram Screening [place] [address] [place] [address] Referral ID Status Reason Start Date Expiration Date Visits V isits Requested Authorized [id number] Incomplete 02/10/2019 05/11/2020 1 1 Reason for Visit Procedure/Equipment (Routine) - Incomplete Specialty Diagnoses / Procedures Referred By Contact Refer red To Contact Procedures Alisha Kimball MD MM Mammogram Screening [place] [address] [place] [address] Referral ID Status Reason Start Date Expiration Date Visits V isits Requested Authorized [id number] Incomplete 02/10/2019 05/11/2020 1 1 Encounter Details Date Type Department Care Team Description 02/10/2019 Ancillary Procedure [facility] Mammography [address] [facility] [place] [address] Social History Tobacco Use Types [...] 06/09/2022 Appointment General Dentistry Radha Elainetejinder May, [facility] [address] [place] [address] (Wo rk) documented as of this encounter [...] on filedocumented in this encounter Care Teams Sports Activities Foul Judge Relationship Specialty Start Date End Date Alisha Kimball MD PCP - General 07/08/[address] [place] [address] documented as of this encounter
--- OUTSIDE RECORDS SUMMARY | 2022-05-29 13:30 | XMS_ITS | Encounter Summary ---
:1955 Author Organization [facility] Address [address] [place] [address] Care Team Providers Name Role Phone Alisha Kimball MD Primary Care Provider Reason for Referral Consult/Transfer Care (Routine) - Closed Specialty Diagnoses / Procedures Referred By Contact Refer red To Contact Diagnoses Essential hypertension (HRC) Alisha Kimball MD [address] [place] [address] Referral ID Status Reason Start Date Expiration Date Visits Requ ested Visits Authorized [id number] Closed 12/12/2018 03/12/2020 1 1 Scheduling Instructions Your provider has recommended an appoint ment to follow up on your high blood pressure. It is best to schedule your ap pointment on the way out of the clinic. If you prefer, you may call your primary ca re clinic or a maintenance scheduler will contact you to assist you in [...] [address] Paroxysmal atrial fibrillation (HRC); [place] [address] [place] [address] Essential hypertension [phone] Social History Tobacco Use Types Packs/Day Years [...] this encounter Patient Instructions Patient InstructionsSabina Oneill - 12/12/2018 8:00 AM CDT Images from [...] can you learn more? 1. Go to https://Widemile/[employer]Point Technologies or ClipMine/[employer]. 2. Enter Y074 in the search box. Current as of: June 16, 2018 Content Version: 12.0 ?? 4480-7503 [employer]. Care instructions adapted under license by your healthcare professional. If you have questions about a medical condition or this instruction, always ask your healthcare professional. [employer] disclaims any warranty or liability for your [...] her blood pressure checked every week at [facility] and normal. No medication side effects.Wonders [...] at goal today. Since normal at [facility], continue to watch. She will follow up on the nurse schedule in 2 weeks. 3. Atrial fibrillation. No ongoing symptoms. Continue Eliquis. Alisha Kimball MD documented in this encounter Plan of Treatment Upcoming Encounters Date Type Specialty Care Team Description 06/09/2022 Appointment General Dentistry Elaine Garcia, [facility] [address] [place], [place] [phone] (Wo rk) Scheduled Referrals Name Type Priority Associated Diagnoses Order S chedule Hypertension Follow Up Referral Routine Essential hyperten bobbi Ordered: 12/12/2018 ([id number]) documented as of this encounter Results (ABNORMAL) Microalbumin/Creatinine Ratio (12/16/2018 7:55 AM CDT) [facility] gist Method Time Signature Albumin, 64.8 mg/L 12/16/2018 [facility] Urine, Random 4:17 PM CDT CENTRAL LAB Creatinine, 209 >20 mg/dL 12/16/2018 [facility] Urine, Random 4:17 PM CDT CENTRAL LAB Albumin/Creati 31 (H) <30 mg/g 12/16/2018 [facility] nine Ratio, 4:17 PM CDT CENTRAL LAB Urine, Random Specimen Anatomical Collection Method Collection Time Receive d Time (Source) Location / / Volume Laterality Urine,random 12/16/2018 7:55 AM 9 7:55 CDT AM CDT Alisha Kimball MD LAB_1 Performing Organization Address City/State/ZIP Code Phon e Number [facility] CENTRAL LAB [address] [address] documented in this encounter Visit Diagnoses Diagnosis Encounter for routine adult health exami nation without abnormal findings - Primary Type 2 diabetes mellitus without complic ation, without long-term current use of insulin (HRC) Paroxysmal atrial fibrillation (HRC) Atrial fibrillation Essential hypertension (HRC) Unspecified essential hypertension documented in this encounter Care Teams Senior Courtroom Clerk Relationship Specialty Start Date End Date Alisha Kimball MD PCP - General 07/08/05 [address] [place] [address] documented as of this encounter
--- OUTSIDE RECORDS SUMMARY | 2022-05-29 13:30 | XMS_ITS | Encounter Summary ---
:1955 Author Organization [employer] Address [address] [place] [address] Care Team Providers Name Role Phone Alisha Kimball MD Primary Care Provider Reason for Visit Reason Comments COVID Screening Encounter Details Date Type Department Care Team Description 01/01/2020 Telephone [facility] Alisha Steinberg MD COVID Screening [address] [facility]. [address] [place] [address] [place] [address] (Wo rk) Social History Tobacco [...] Patient information Best number to contact patient: [phone] Reason for Call: COVID Screening/Testing Request In [...] Description 06/09/2022 Appointment General Dentistry Elaine Garcia, [address] [place] [address] (Wo rk) documented as of this encounter Visit Diagnoses Not on filedocumented in this encounter Care Teams Office Runner Relationship Specialty Start Date End Date Alisha Kimball MD PCP - General 07/08/05 [address] [place], [place] [phone] documented as of this encounter
--- OUTSIDE RECORDS SUMMARY | 2022-05-29 13:30 | XMS_ITS | Encounter Summary ---
:1955 Author Organization [employer] Address [address] [place] [address] Care Team Providers Name Role Phone Alisha Kimball MD Primary Care Provider Reason for Visit Reason Comments Medication Questions Encounter Details Date Type Department Care Team Description 07/01/2019 Telephone [facility] Alisha Kimball MD Medication Questions Practice [address] [place] [address] [place], [place] [id number] [phone] Social History Tobacco Use Types Packs/Day Years Used Date Smoking Tobacco: Never Smokeless Tobacco: Never Alcohol Use Standard Drinks/Week Comments No 0 (1 standard drink = 0.6 oz pure alcoho l) Sex Assigned at Date Recorded Not on file documented as of this encounter Nursing Notes Anitra Bustillos CMA - 07/03/2019 12:05 PM CST Pt informed and agreed w/ plan. [employer] MEMBER Alisha Kimball MD - 07/03/2019 11:21 AM CST OK. See orders. Call with problems or if increased palpitations. Thanks! Alisha Kimball MD [employer] MEM[employer] Anitra Bustillos CMA - 07/03/2019 9:53 AM CST Pt states she would like to try the atenolol please. Pended. [employer] MEMBER Alisha Kimball MD - 07/03/2019 8:48 AM CST If I change her to metoprolol tartrate, will need to take it twice daily. The atenolol will be once daily. Does she have a preference? Thanks! Alisha Kimball MD [employer] MEMBER Marysol Edward - 07/01/2019 3:54 PM CST ALTERNATIVE REQUESTED:PT PAYING $36 FOR METOP. PT REQUESTING LOWER OUT OF POCKET COST ATENOLOL 100 MG TABLET $9 - METOPROLOL TARTRATE 100 MG TAB $9 [employer] MEMBER documented in this encounter Plan of Treatment Upcoming Encounters Date Type Specialty Care Team Description 06/09/2022 Appointment General Dentistry Elaine Garcia, [facility] [address] [place], [place] [phone] (Wo rk) documented as of this encounter Visit Diagnoses Diagnosis Paroxysmal atrial fibrillation (HRC) - P rimary Atrial fibrillation documented in this encounter Care Teams Power Plant Supervisor Relationship Specialty Start Date End Date Alisha Kimball MD PCP - General 07/08/05 [address] [place] [address] documented as of this encounter
--- OUTSIDE RECORDS SUMMARY | 2022-05-29 13:30 | XMS_ITS | Encounter Summary ---
:1955 Author Organization [facility] Address [address] [place] [address] Care Team Providers Name Role Phone Alisha Kimball MD Primary Care Provider Reason for Visit Reason Comments ENT Clinic Visit Encounter Details Date Type Department Care Team Description 08/25/2018 Office Visit [facility] Specialty Geraldine Ackerman (Primary Dx); Center Audiology [facility] May Sensorineural hearing loss of both ears [address] [place] [address] [place], [place] [phone] [address] Social History Tobacco Use Types Packs/Day Years Used Date Smoking Tobacco: Never Smokeless Tobacco: Never Alcohol Use Standard Drinks/Week Comments No 0 (1 standard drink = 0.6 oz pure alcoho l) Sex Assigned at Date Recorded Not on file documented as of this encounter Patient Instructions Patient InstructionsGeraldine Ackerman AU.D. - 08/25/2018 9:00 AM CST Audiology/ENT Thank you for choosing [facility] Audiology and Otolaryngology for your ear and hearing needs. Your portrait artist has provided you with written follow up [...] music. Hearing protection is available from all [facility] Audiology locations. Resources: Smoke and Carbon Monoxide detectors: Special smoke and carbon Monoxide alerting devices for individuals with hearing loss can be obtained from [employer]. or www.Hexago Telephone: Amplified Telephone products may be available to you at no charge through the [place] [employer] of [employer] Telephone Equipment Distribution program ([employer]). This is an income based program. The phone number is [phone] (voice) or [phone] (TTY). www.Right Relevance.Angiocrine Bioscience. [facility] Audiology has printed WEN program information available upon request. Contact Information: Thank you again for allowing [facility] to participate in your hearing care. For questions regarding your visit please call [phone]. For a return audiology appointment, please call [phone]. If you require urgent after hours care, please call the Care Line at [phone]. D OBSERVER documented in this encounter Progress Notes Geraldine Ackerman AU.D. - 08/25/2018 9:00 AM CST Subjective: Loc Velasco, 63 y.o. old female, comes in today for an ENT appointment with Dr. Stephens [facility] and audiometric testing is ordered. [...] a mild sensorineural hearing loss, bilaterally. Speech campus receptionist thresholds are in agreement with pure tones. [...] ENT at scheduled appointment today. [facility] [place] Slipper Maker D OBSERVER documented in this encounter Plan of Treatment Upcoming Encounters Date Type Specialty Care Team Description 06/09/2022 Appointment General Dentistry Elaine Garcia, [facility] [address] [place], [place] [phone] (Wo rk) documented as of this encounter Visit Diagnoses Diagnosis Vertigo - Primary Dizziness and giddiness Sensorineural hearing loss of both ears Sensorineural hearing loss, bilateral documented in this encounter Care Teams Chief Lock Tender Operator Relationship Specialty Start Date End Date Alisha Kimball MD PCP - General 07/08/05 [address] [place] [address] documented as of this encounter
--- OUTSIDE RECORDS SUMMARY | 2022-05-29 13:30 | XMS_ITS | Encounter Summary ---
:1955 Author Organization [employer] Address [address] [place] [address] Care Team Providers Name Role Phone Alisha Kimball MD Primary Care Provider Reason for Visit Reason Comments COVID Screening Encounter Details Date Type Department Care Team Description 01/01/2020 [facility]phone [facility] COVID Screening [address] [facility]. [address] [place] [address] [place] [address] (Wo rk) Social History Tobacco [...] Patient information Best number to contact patient: [phone] Reason for Call: COVID Screening/Testing Request In [...] Description 06/09/2022 Appointment General Dentistry Elaine Garcia, [facility] [address] [place], [place] [phone] (Wo rk) documented as of this encounter Visit Diagnoses Not on filedocumented in this encounter Care Teams Loan Servicing Officer Relationship Specialty Start Date End Date Alisha Kimball MD PCP - General 07/08/05 [address] [place], [place] [phone] documented as of this encounter
--- OUTSIDE RECORDS SUMMARY | 2022-05-29 13:30 | XMS_ITS | Encounter Summary ---
:1955 Author Organization [facility] Address [address] [place] [address] Care Team Providers Name Role Phone Alisha Kimball MD Primary Care Provider Encounter Details Date Type Department Care Team Description 12/02/2018 Lab Visit [facility] Type 2 diabetes mellitus [address] [facility] without complication, [place], [place] [address] without long-term current [phone] use of insulin (HRC) Social History Tobacco [...] Dentistry Elaine Garcia, [facility] [address] [place] [address] (Wo rk) documented as of [...] Basic Metabolic Panel (12/02/2018 7:34 AM CDT) [facility] Method Time Signature Sodium 138 136 - 145 12/02/2018 [facility] mmol/L 11:30 AM CDT CENTRAL LAB Potassium 4.6 3.5 - 5.1 12/02/2018 [facility] mmol/L 11:30 AM CDT CENTRAL LAB Chloride 104 98 - 109 12/02/2018 [facility] mmol/L 11:30 AM CDT CENTRAL LAB CO2 26 20 - 29 12/02/2018 [facility] mmol/L 11:30 AM CDT CENTRAL LAB Anion Gap 8 7 - 16 12/02/2018 [facility] mmol/L 11:30 AM CDT CENTRAL LAB Calcium 10.0 8.4 - 12/02/2018 [facility] 10.4 11:30 AM T CENTRAL LAB mg/dL BUN 28 (H) 7 - 26 12/02/2018 [facility] mg/dL 11:30 AM T CENTRAL LAB Creatinine 1.02 0.55 - 12/02/2018 [facility] 1.02 11:30 AM T CENTRAL LAB mg/dL GFR, Estimated 58 (L) >60 12/02/2018 [facility] mL/min/1. 11:30 AM T CENTRAL LAB 73m2 GFR, Est If >60 >60 12/02/2018 [facility] mL/min/1. 11:30 AM T CENTRAL LAB Tuvaluan 73m2 Glucose 108 (H) 70 - 100 12/02/2018 [facility] mg/dL 11:30 AM T CENTRAL LAB Comment: The given reference range is fo r the fasting state. Non-fasting reference range for glucose is 70 - 180 mg/dL. Hours Fasting 12 12/02/2018 11:30 AM T [facility] Specimen Anatomical Collection Method / Collection Time Recei dawn Time (Source) Location / Volume Laterality Blood Venipuncture / 12/02/2018 7:34 12/02/2018 7:34 Unknown AM CDT AM CDT Narrative [facility] CENTRAL LAB - 12/02/2018 11:30 AM [...] Kimball MD LAB_1 Performing Organization Address [facility] Phon e Number [facility] CENTRAL [facility] [address] [address] [facility] [address] [place] [address], [place] Lipid Panel and Direct LDL(If Needed) (12/02/2018 7:34 AM CDT) [facility] Method Time Signature Cholesterol 167 0 - [...] CDT CENTRAL LAB Hours Fasting 12 12/02/2018 [facility] 11:30 AM CDT Specimen Anatomical Collection Method / Collection Time Recei dawn Time (Source) Location / Volume Laterality Blood Venipuncture / 12/02/2018 7:34 12/02/2018 7:34 Unknown AM CDT AM CDT Alisha Kimball MD LAB_1 Performing Organization Address City/[facility] Phon e Number [facility] [address] [address] [facility] [address] [place] [address], [place] (ABNORMAL) Hgb A1C (12/02/2018 7:34 AM CDT) Patholo gist Method Time Signature Hemoglobin A1C 6.7 (H) <=5.6 % 12/02/2018 [facility] 12:44 PM CDT CENTRAL LAB Specimen Anatomical Collection Method / Collection Time Recei dawn Time (Source) Location / Volume Laterality Blood Venipuncture / 12/02/2018 7:34 12/02/2018 7:34 Unknown AM CDT AM CDT Narrative [facility] - 12/02/2018 12:44 PM CDT For patients not previously diagnosed with diabetes: 5.7-6.4%: Increased risk for diabetes 6.5% and greater: Diagnostic for diabete s For patients diagnosed with diabetes: <8.0%: Goal of therapy for ages 18-75 Clinicians may recommend a higher or low er goal for specific individuals. Alisha Kimball MD LAB_1 Performing Organization Address City/State/ZIP Code Phon e Number [facility] [address] [address] documented in this encounter Visit Diagnoses Diagnosis Type 2 diabetes mellitus without complic ation, without long-term current use of insulin (HRC) documented in this encounter Care Teams Running Specialist Relationship Specialty Start Date End Date Alisha Kimball MD PCP - General 07/08/05 [address] [place] [address] documented as of this encounter
--- OUTSIDE RECORDS SUMMARY | 2022-05-29 13:30 | XMS_ITS | Encounter Summary ---
:1955 Author Organization [facility] Address [address] [place] [address] Care Team Providers Name Role Phone Carroll Kimball MD Primary Care Provider Reason for Visit Reason Comments Refill ELIQUIS 5 MG tablet [Pharmac y Med Name: ELIQUIS 5 MG TABLET] Encounter Details Date Type Department Care Team Description 06/15/2019 Refill [facility] Carroll Kimball MD Refill (ELIQUIS 5 MG Practice [address] tablet [Pharmacy Med [address] [place] [address] Name: ELIQUIS 5 [place] [address] TABLET]) [phone] Social History Tobacco Use Types Packs/Day Years [...] be delegated. Last qualifying visit: 12/12/2018 (in [facility]) Next scheduled visit: None Last ordered by CARROLL KIMBALL: 06/16/2018 (364 days ago) QTY: 180, Refills: 3, Sig: take 1 tablet by mouth twice a day (unchanged) Powered by vendome [id number], Reference: [id number], 06/15/2019 10:21:58 AM TIRE MECHANIC, Pool: ARNOLD REFILL RN ([id number]) MECHANIC documented in this encounter Plan of Treatment Upcoming Encounters Date Type Specialty Care Team Description 06/09/2022 Appointment General Dentistry Elaine Garcia, [facility] [address] [place], [place] [phone] (Wo rk) documented as of this encounter Visit Diagnoses Diagnosis Paroxysmal atrial fibrillation (HRC) Atrial fibrillation documented in this encounter Care Teams Jewel Blocker And Sawyer Relationship Specialty Start Date End Date Carroll Kimball MD PCP - General 07/08/05 [address] [place], [place] [phone] documented as of this encounter
--- OUTSIDE RECORDS SUMMARY | 2022-05-29 13:30 | XMS_ITS | Encounter Summary ---
:1955 Author Organization [employer] [employer] Address [address], [place] [address] Care Team Providers Name Role Phone Alisha Kimball MD Primary Care Provider Reason for Visit Reason Comments Dental Hygiene cc none Encounter Details Date Type Department Care Team Description 06/13/2019 Office Visit [facility] (cc Dentistry [address] [facility] none) [address] [place] [phone] Social History Tobacco Use Types Packs/Day Years Used Date Smoking Tobacco: Never Smokeless Tobacco: Never Alcohol Use Standard Drinks/Week Comments No 0 (1 standard drink = 0.6 oz pure alcoho l) Sex Assigned at Date Recorded Not on file documented as of this encounter Last Filed Vital Signs Vital Sign Reading Time Taken Comments Blood Pressure - - Pulse 108 06/13/2019 9:15 AM SHADOWGRAPH SCALE OPERATOR Temperature - - Respiratory Rate - [...] next visit! Thank you for choosing [facility]. OWGRAPH SCALE OPERATOR documented in this encounter Progress Notes [...] in replacing missing teeth --End of Note-- OWGRAPH SCALE OPERATOR Jamaal Cleveland DDS - 06/13/2019 9:10 AM [...] [place] 06/13/2019, 9:49 AM --End of Note-- OWGRAPH SCALE OPERATOR documented in this encounter Plan of Treatment Upcoming Encounters Date Type Specialty Care Team Description 06/09/2022 Appointment General Dentistry Elaine Garcia, [facility] [address] [place] [address] (Wo rk) documented as of this encounter Procedures Procedure Name Priority Date/Time Associated Diagnosis Comme nts PERIODIC ORAL EVALUATION Routine 06/13/2019 9:10 AM SHADOWGRAPH SCALE OPERATOR Locali zed gingivitis PROPHYLAXIS-ADULT RECALL Routine 06/13/2019 9:10 AM SHADOWGRAPH SCALE OPERATOR Locali zed gingivitis documented in this encounter Visit Diagnoses Diagnosis Localized gingivitis - Primary documented in this encounter Care Teams Cosmetics Counter Manager Relationship Specialty Start Date End Date Alisha Kimball MD PCP - General 07/08/05 [address] [place] [address] documented as of this encounter
--- OUTSIDE RECORDS SUMMARY | 2022-05-29 13:30 | XMS_ITS | Encounter Summary ---
:1955 Author Organization [facility] Address [address] [place] [address] Care Team Providers Name Role Phone Alisha Kimball MD Primary Care Provider Encounter Details Date Type Department Care Team Description 08/21/2018 Partner ED External to [facility], Provider DIZZINESS Social History Tobacco [...] General Dentistry Elaine Garcia, [facility] [address] [place] [address] (Wo rk) documented as of this encounter Visit Diagnoses Not on filedocumented in this encounter Care Teams Automotive Electrician Helper Relationship Specialty Start Date End Date Alisha Kimball MD PCP - General 07/08/05 [address] [place] [address] documented as of this encounter
--- OUTSIDE RECORDS SUMMARY | 2022-05-29 13:30 | XMS_ITS | Encounter Summary ---
:1955 Author Organization [employer] Address [address] [place] [address] Care Team Providers Name Role Phone Alisha Kimball MD Primary Care Provider Reason for Visit Reason Comments Consult, New Patient vertigo started sat. went to ER con[place] Encounter Details Date Type Department Care Team Description 08/25/2018 Office Visit [facility] Margot Sow M D Perceived hearing changes (Primary Dx); [address] Sensorineural hearing loss ( SNHL) of both ears; [address] [place] [address] [place], [place] [phone] [address] Social History Tobacco Use Types Packs/Day Years Used Date Smoking Tobacco: Never Smokeless Tobacco: Never Alcohol Use Standard Drinks/Week Comments No 0 (1 standard drink = 0.6 oz pure alcoho l) Sex Assigned at Date Recorded Not on file documented as of this encounter Patient Instructions Patient InstructionsNoMilagro freitas CMA - 08/25/2018 10:00 AM CST Please call our clinic with any questions or concerns at [phone], option 3. CULTURAL SERVICE WORKER documented in this encounter Progress Notes Margot Sow MD - 08/25/2018 10:00 AM CST OTOLARYNGOLOGY NEWPATIENT CHIEF COMPLAINT: Chief Complaint Patient presents with ??? Consult, New Patient vertigo started sat. went to ER ezio I was asked to see Loc Velasco [...] sensation but she does not have the jhfwx-sa-gaubg spinning anymore. She said every time she [...] (FLONASE) 50 MCG/ACT nasal solution Place 1 [place] into both nostrils daily. decreaseto 1 spray [...] 90 Tablet 2 ??? neomycin-polymyxin B-hydrocortisone (CORTISPORIN) 3.5-77586-4 ear drop solution 3 Drops 4 times [...] ears H90.3 3. Bilateral impacted cerumen H61.23 29673 Removal Impact Cerumen 1/Both Ears 4. Vertigo [...] software and may contain unintended word substitutions. CULTURAL SERVICE WORKER documented in this encounter Plan of Treatment Upcoming Encounters Date Type Specialty Care Team Description 06/09/2022 [facility]ment [facility] [address] [place], [place] [phone] (Wo rk) documented as of this encounter Visit Diagnoses Diagnosis Perceived hearing changes - Primary Other disorders of ear Sensorineural hearing loss (SNHL) of bot h ears Bilateral impacted cerumen Impacted cerumen documented in this encounter Care Teams Cloth Shrinking Machine Operator Helper Relationship Specialty Start Date End Date Alisha Kimball MD PCP - General 07/08/[address] [place], [place] [phone] documented as of this encounter
--- OUTSIDE RECORDS SUMMARY | 2022-05-29 13:30 | XMS_ITS | Encounter Summary ---
:1955 Author Organization [employer] Address [address] [place] [address] Care Team Providers Name Role Phone Alisha Kimball MD Primary Care Provider Reason for Visit Reason Comments COVID Screening Encounter Details Date Type Department Care Team Description [facility] [address] [facility]. [address] [place] [address] [place], [place] [phone] (Wo rk) Social History Tobacco Use Types [...] Patient information Best number to contact patient: [phone] Reason for Visit: Other: F/U 1 YEAR [...] 06/09/2022 Appointment General Dentistry Elaine Garcia, [facility] [address] [place], [place] [phone] (Wo rk) documented as of this encounter Visit Diagnoses Not on filedocumented in this encounter Care Teams Brim Stretcher Relationship Specialty Start Date End Date Alisha Kimball MD PCP - General 07/08/05 [address] [place] [address] documented as of this encounter
--- OUTSIDE RECORDS SUMMARY | 2022-05-29 13:31 | XMS_ITS | Encounter Summary ---
:1955 Author Organization [employer] Address [address] [place] [address] Care Team Providers Name Role Phone Alisha Kimball MD Primary Care Provider Reason for Visit Reason Comments MEDICATION THERAPY MANAGEMENT Encounter Details Date Type Department Care Team Description 04/25/2018 Office Visit [facility] Izaiah Lema, Type 2 diabetes [address] [facility] [place] [address] complication, without [phone] [place], [place] long-term cur rent use [address] of insulin (HRC) [phone] (Primary Dx) (Work) Social History Tobacco Use [...] up on diabetes as part of the [facility] [place] program. Last MTM encounter was 6 months [...] 6 months. Rx considerations: add SGLT-2. Updated EPIC med list and reviewed medications including indications with patient. Total time spent with patient 30 minutes. Izaiah Lema, AnneD, [facility], [facility] Clinical Pharmacist Medication Therapy Management Program Recipient of visit: Patient Medicare CI: no # of DTPs: 1 # of DTPs resolved: 1 documented in this encounter Plan of Treatment Upcoming Encounters Date Type Specialty Care Team Description 06/09/2022 Appointment General Dentistry Elaine Garcia, [facility] [address] [place] [address] (Wo rk) documented as of this encounter Visit Diagnoses Diagnosis Type 2 diabetes mellitus without complic ation, without long-term current use of insulin (HRC) - Primary documented in this encounter Care Teams Marketing Rotation Associate Relationship Specialty Start Date End Date Alisha Kimball MD PCP - General 07/08/05 [address] [place], [place] [phone] documented as of this encounter
--- OUTSIDE RECORDS SUMMARY | 2022-05-29 13:31 | XMS_ITS | Encounter Summary ---
:1955 Author Organization [facility] Address [address] [place] [address] Care Team Providers Name Role Phone Alisha Kimball MD Primary Care Provider Reason for Visit Reason Comments INJURY, EYE Encounter Details Date Type Department Care Team Description 12/25/2017 Nurse Triage Careline Unknown, Physician INJURY, EYE [address] [place], [place] [address] [place] [address] [phone] (Wo rk) Social History Tobacco Use Types [...] last menstrual period? na Protocols used: EYE [id number] Dr. Gino Francisco paged at 12:50 PM Returned page at 1:04 PM Instructed to: Ciprofloxacin 0.3% one drop to affected eye QID for 7 days. Emerson Harris RN - 12/25/2017 12:43 PM CDT Verified patient identity using three identifiers: Yes Jayson [facility] [address] Situation/Background (brief explanation of current symptoms/situation): Poked self with fingernail, bleeding on sclera. Diabetes, heart issues, on blood tinner and high blood pressure, several meds Johnna Hunt - 12/25/2017 10:07 AM CDT Verified patient identity using three identifiers: Yes Caller's relationship to patient: Self At which care system or clinic is the patient normally seen? [facility] Symptoms Describe the reason for call/symptoms [...] Description 06/09/2022 Appointment General Dentistry Elaine Garcia, [facility] [address] [place], [place] [phone] (Wo rk) documented as of this encounter Visit Diagnoses Not on filedocumented in this encounter Care Teams Space Control Agent Relationship Specialty Start Date End Date Alisha Kimball MD PCP - General 07/08/05 [address] [place] [address] documented as of this encounter
--- OUTSIDE RECORDS SUMMARY | 2022-05-29 13:31 | XMS_ITS | Encounter Summary ---
:1955 Author Organization [employer] Address [address] [place] [address] Care Team Providers Name Role Phone Alisha Kimball MD Primary Care Provider Reason for Visit Reason Comments Problem Focused Exam UR bkn tooth Encounter Details Date Type Department Care Team Description 02/22/2018 Office Visit [place] [facility] [place] Pro blem Focused Exam Dentistry DDS (UR bkn tooth) [address] [facility] [address] [place] [address] [phone] Social History Tobacco Use Types Packs/Day Years [...] palpation, perio wnl. PA is wnl. A [place] fx 5, old amalgam, previously noted incomplete [...] consent Procedures performed at this visit Sedative Congregational ?? Tooth #(s): 5 OB ?? Liner/varnish [...] Elaine Garcia, [facility] [address] [place] [address] (Wo rk) documented as of this encounter [...] imary documented in this encounter Care Teams Buckle Stringer Relationship Specialty Start Date End Date Alisha Kimball MD PCP - General 07/08/05 [address] [place] [address] documented as of this encounter
--- OUTSIDE RECORDS SUMMARY | 2022-05-29 13:31 | XMS_ITS | Encounter Summary ---
:[address] [facility] Address [address] [place] [address] Care Team Providers Name Role Phone Alisha Kimball MD Primary Care Provider Reason for Visit Reason Comments Refill metoprolol succinate (TOPROL -XL) 200 MG 24 hour release tablet [Pharmacy Med Name: METOPROLOL SUCC ER 200 MG TAB] Encounter Details Date Type Department Care Team Description 05/04/2018 Refill [facility] Alisha Kimball MD Refill (metoprolol Practice [address] succinate (TOPROL-XL) [address] [place] [address] 200 MG 24 hour release [place], [place] [phone] tablet [Pharmacy Med [phone] Name: MET OPROLOL SUCC ER 200 MG [...] office visit) Last qualifying visit: 12/07/2017 (in [facility]) Next scheduled visit: None Last ordered by BLANCA ALMAGUER S: 05/21/2017 (348 days ago) QTY: 90, Refills: 3, Sig: take 1 tab by mouth daily at bedtime. (changed but equivalent) SBP: 134 mm Hg on 04/25/2018 DBP: 88 mm Hg on 04/25/2018 Heart Rate: 61 bpm on 04/25/2018 Powered by [employer], Reference: [id number], 05/04/2018 11:35:31 AM CDT, Pool: ARNOLD AMEZQUITA RN ([id number]) documented in this encounter Plan of Treatment Upcoming Encounters Date Type Specialty Care Team Description 06/09/2022 Appointment General Dentistry Elaine Garcia, [facility] [address] [place] [address] (Wo rk) documented as of this encounter Visit Diagnoses Diagnosis Essential hypertension (HRC) Unspecified essential hypertension documented in this encounter Care Teams Radio Operator Ground Relationship Specialty Start Date End Date Alisha Kimball MD PCP - General 07/08/05 [address] [place] [address] documented as of this encounter
--- OUTSIDE RECORDS SUMMARY | 2022-05-29 13:31 | XMS_ITS | Encounter Summary ---
:1955 Author Organization [employer] Address [address] [place] [address] Care Team Providers Name Role Phone Carroll Avalos MD Primary Care Provider Reason for Visit Reason Comments Refill amLODIPine (NORVASC) 5 MG ta blet [Pharmacy Med Name: AMLODIPINE BESYLATE 5 MG TAB] Encounter Details Date Type Department Care Team Description [facility] Refill (amLODIPine [facility] [address] (NORVASC) 5 [place] [address] [place] [address] [Pharmacy Med Name: [phone] (Wo rk) AMLODIPINE BESYLATE 5 MG TAB]) [...] office visit) Last qualifying visit: 12/07/2017 (in [facility]) Next scheduled visit: None Last ordered by CARROLL AVALOS: 05/11/2017 (352 days ago) QTY: 90, Refills: 3, Sig: take one tabletby mouth every day (changed but equivalent) SBP: 134 mm Hg on 04/25/2018 DBP: 88 mm Hg on 04/25/2018 Powered by [employer], Reference: [id number], 04/28/2018 1:40:49 AM CDT, Pool: ARNOLD REFILL RN ([id number]) documented in this encounter Plan of Treatment Upcoming Encounters Date Type Specialty Care Team Description 06/09/2022 Appointment General Dentistry Elaine Garcia, [facility] [address] [place], [place] [phone] (Wo rk) documented as of this encounter Visit Diagnoses Not on filedocumented in this encounter Care Teams Tool Setter Relationship Specialty Start Date End Date Carroll Avalos MD PCP - General 07/08/05 [address] [place], [place] [phone] documented as of this encounter
--- OUTSIDE RECORDS SUMMARY | 2022-05-29 13:31 | XMS_ITS | Encounter Summary ---
:1955 Author Organization [employer] Address [address] [place] [address] Care Team Providers Name Role Phone Alisha Kimball MD Primary Care Provider Reason for Visit Reason Comments Refill Encounter Details Date Type Department Care Team Description 06/16/2018 Telephone [facility]i Alisha Kimball MD Refill [address]50 [facility]. [address] [place] [address] [place], [place] [phone] (Wo rk) Social History Tobacco Use Types Packs/Day Years Used Date Smoking Tobacco: Never Smokeless Tobacco: Never Alcohol Use Standard Drinks/Week Comments No 0 (1 standard drink = 0.6 oz pure alcoho l) Sex Assigned at Date Recorded Not on file documented as of this encounter Nursing Notes Alisha Kimball MD - 06/16/2018 4:44 PM CST Done. Alisha Kimball MD T CLERK Tara Ricketts - 06/16/2018 4:05 PM CST Eliquis 5 mg.Patient states PCP is supposed to order from now on and not the news videotape editor. Resent the Refill request to Dr. Kimball. T CLERK Francesca Cho CMA - 06/16/2018 3:28 PM CST CA: What prescription is patient requesting a refill on? T CLERK Francesca Cho CMA - 06/16/2018 3:27 PM CST ----- Message from Rocio Garcia sent at 06/16/2018 3:14 PM VAULT CLERK ----- Contact: Melia Patient is calling about their refill request, please complete as soon as possible. Thanks, Rocio Garcia T CLERK Rocio Garcia - 06/16/2018 3:13 PM CST Patient called to check status of this refill request. Leaving [facility] on Wednesday06/20/18 T CLERK documented in this encounter Plan of Treatment Upcoming Encounters Date Type Specialty Care Team Description 06/09/2022 Appointment General Dentistry Elaine Garcia, [facility] [address] [place], [place] [phone] (Wo rk) documented as of this encounter Visit Diagnoses Not on filedocumented in this encounter Care Teams Workers Compensation Paralegal Relationship Specialty Start Date End Date Alisha Kimball MD PCP - General 07/08/05 [address] [place] [address] documented as of this encounter
--- OUTSIDE RECORDS SUMMARY | 2022-05-29 13:31 | XMS_ITS | Encounter Summary ---
:1955 Author Organization [employer] Address [address] [place] [address] Care Team Providers Name Role Phone Alisha Kimball MD Primary Care Provider Reason for Visit Reason Comments ROUTINE HEALTH MAINTENANCE Smartset/Labs and urine wer e done last week. Encounter Details Date Type Department Care Team Description 12/07/2017 Office Visit [facility] Alisha Kimball, German r for routine adult health examination without abnormal findings (Primary Dx); Practice MD Type 2 diabetes mellitus without complic ation, without long-term current use of insulin (HRC); [address]; [place] [address] [address] Paroxysmal atrial fibrillation ([facility]); [phone] [place], [place] Screening for H IV (human immunodeficiency virus); [address] Encounter for screening mammogram for ma lignant [...] this encounter Patient Instructions Patient InstructionsFrancesca Cho, ISAIAS - 12/07/2017 1:52 PM CDT Images from the original note were not included. For rash: Topicort cream to itchy patches in a thin layer twice daily for 1-2 weeks as needed. Let me know after 7-10 days if this is not helpful or sooner if you are worse. If this does not help, I will have you see a Hospital Sales Representative. Well Visit, Women 50 to 65: Care [...] can you learn more? 1. Go to [employer]/CipherMax or [employer]My[employer]/Cubicle. 2. Enter Y074 in the search box. Current as of: November 17, 2016 Content Version: 11.6 ?? [id number] [employer]. Dermatitis: Care Instructions Your Care Instructions [...] help for plant rashes. ?? Take an nqrd-yrj-jleyxwm antihistamine, such as diphenhydramine (Benadryl) or loratadine [...] can you learn more? 1. Go to [employer] or [employer]/Cubicle. 2. Enter F270 in the search box. Current as of: April 08, 2017 Content Version: 11.6 ?? [id number] [employer] Referral.IM. documented in this encounter Progress Notes Alisha [...] incompletely helpful, will have her see Dermatology. Ailsha Kimball MD documented in this encounter Plan of Treatment Upcoming Encounters Date Type Specialty Care Team Description 06/09/2022 Appointment General Dentistry Elaine Garcia, [facility] [address] [place], [place] [phone] (Wo rk) documented as of this encounter Visit Diagnoses Diagnosis Encounter for routine adult health exami [facility] without abnormal findings - Primary Type 2 [...] mammogram documented in this encounter Care Teams Communications Department Chair Relationship Specialty Start Date End Date Alisha Kimball MD PCP - General 07/08/05 [address] [place] [address] documented as of this encounter
--- OUTSIDE RECORDS SUMMARY | 2022-05-29 13:31 | XMS_ITS | Encounter Summary ---
:1955 Author Organization [facility] Address [address] [place] [address] Care Team Providers Name Role Phone Alisha Kimball MD Primary Care Provider Reason for Visit Reason Onset Date Comments Refill 03/16/2018 Encounter Details Date Type Department Care Team Description 03/16/2018 Refill [facility] Cheyannebanner Janice Whipple , PAMehreenC Refill Cardiology [address] [place] [phone] Social History Tobacco Use Types Packs/Day Years [...] Elaine Garcia, [facility] [address] [place], [place] [phone] (Wo rk) documented as of this encounter Visit Diagnoses Not on filedocumented in this encounter Care Teams Financial Sales Representative Relationship Specialty Start Date End Date Alisha Kimball MD PCP - General 07/08/[address] [place], [place] [phone] documented as of this encounter
--- OUTSIDE RECORDS SUMMARY | 2022-05-29 13:31 | XMS_ITS | Encounter Summary ---
:1955 Author Organization [employer] Address [address] [place] [address] Care Team Providers Name Role Phone Carroll Avalos MD Primary Care Provider Reason for Visit Reason Comments Refill metFORMIN XR (GLUCOPHAGE XR) 500 MG 24 hour release tablet [Pharmacy Med Name: METFORMIN ER 500 MG TABLET] Encounter Details Date Type Department Care Team Description [facility] [facility] Refill (metFORMIN XR 205 [facility] [address] (GLUCOPHAGE XR) 500 [place] [address] [place] [address] 24 hour release tablet [phone] (Wo rk) [Pharmacy Med Name: METFORMIN ER [...] HBA1C check) Last qualifying visit: 12/07/2017 ([facility]) Next scheduled visit: None Last ordered by CARROLL AVALOS K: 12/07/2016 (419 days ago) QTY: 360, Refills: 11, Sig: take 4 tabs by mouth daily with breakfast. (changed but equivalent) Cr: 0.86 mg/dL on 11/26/2017 HBA1C: 7.7 % on 11/26/2017 Powered by [employer], Reference: [id number], 01/30/2018 1:20:32 AM CDT, Pool: ARNOLD AMEZQUITA RN ([id number]) Interface, Out Wild[employer]angent Query - 01/30/2018 1:20 AM CDT The [...] Description 06/09/2022 Appointment General Dentistry Elaine Garcia, [facility] [address] [place] [address] (Wo rk) documented as of this encounter Visit Diagnoses Not on filedocumented in this encounter Care Teams Tucking Machine Operator Relationship Specialty Start Date End Date Carroll Avalos MD PCP - General 07/08/05 [address] [place] [address] documented as of this encounter
--- OUTSIDE RECORDS SUMMARY | 2022-05-29 13:31 | XMS_ITS | Encounter Summary ---
:1955 Author Organization [employer] Address [address] [place] [address] Care Team Providers Name Role Phone Alisha Kimball MD Primary Care Provider Reason for Visit Reason Comments Orders Needed Encounter Details Date Type Department Care Team Description 05/02/2018 Telephone [facility] Alisha Steinberg MD Orders Needed [address] [place] [address] [place], [place] [phone] (Wo rk) Social History Tobacco Use Types [...] (FLONASE) 50 MCG/ACT nasal solution Place 1 [place] into both nostrils daily. decreaseto 1 spray [...] 05/02/2018 10:42 AM CDT Orders - Laboratory [Fisheries Specialist/Appt Center: If this call is after 3 p.m., communicate to patient: If we are not able to get back to you by the end of the day and your symptoms worsen please contact the Careline at [phone] OR at .] What lab order is [...] been seen recently for this concern? No [Fisheries Specialist/Appt Center:If patient was seen at an outside location, please obtain records] Is it okay to leave a detailed message on your voicemail? Yes [Fisheries Specialist/Appt Center: Instruct patient to check with insurance company for coverage] Is there anything else I can help you with today? Vero Robin Please route to: Care Team Pool documented in this encounter Plan of Treatment Upcoming Encounters Date Type Specialty Care Team Description 06/09/2022 Appointment General Dentistry Elaine Garcia, [facility] [address] [place], [place] [phone] (Wo rk) documented as of this encounter Visit Diagnoses Not on filedocumented in this encounter Care Teams Small Electric Engine Technician Relationship Specialty Start Date End Date Alisha Kimball MD PCP - General 07/08/05 [address] [place] [address] documented as of this encounter
--- OUTSIDE RECORDS SUMMARY | 2022-05-29 13:31 | XMS_ITS | Encounter Summary ---
:1955 Author Organization [facility] Address [address] [place] [address] Care Team Providers Name Role Phone Alisha Kimball MD Primary Care Provider Encounter Details Date Type Department Care Team Description 09/02/2017 Office Visit [facility] Janice Gill aroxysmal atrial fibrillation (HRC) (Primary Dx); Cardiology EMILY Whipple Heart palpitations; [address] [place] [address] Essential hypertension; [place] [address] TANNER (dyspnea on exertion) [phone] Social History Tobacco Use Types Packs/Day Years Used Date Smoking Tobacco: Never Smokeless Tobacco: Never Alcohol Use Standard Drinks/Week Comments No 0 (1 standard drink = 0.6 oz pure alcoho l) Sex Assigned at Date Recorded Not on file documented as of this encounter Last Filed Vital Signs Vital Sign Reading Time Taken Comments Blood Pressure 147/89 09/02/2017 7:55 AM DEPUTY HARBORMASTER Pulse 64 09/02/2017 7:55 AM DEPUTY HARBORMASTER Temperature - - Respiratory Rate 18 09/02/2017 7:21 AM DEPUTY HARBORMASTER Oxygen Saturation 97% 09/02/2017 7:21 AM DEPUTY HARBORMASTER Inhaled Oxygen Concentration - - Weight 85.3 kg (188 lb) 09/02/2017 7:21 AM DEPUTY HARBORMASTER Height 163.8 cm (5' 4.5) 09/02/2017 7:21 AM DEPUTY HARBORMASTER Body Mass Index 31.77 09/02/2017 7:21 AM DEPUTY HARBORMASTER documented in this encounter Patient Instructions Patient [...] RegardsJanice PA-C You may contact us at: --[facility] scheduling number- [phone] If having symptoms of concern, please ask to speak to a nurse. The receptionist scheduler will have a nurse call you to discuss your concerns. --After hours, contact the CareLine at [phone] or TY HARBORMASTER documented in this encounter Progress Notes Janice [...] every evening and a follow-up Holter m tonja was performed. Last seen by myself 05/2017 at which time we started her on Eliquis for [id number] score of 3. Today, patient reports she [...] to contact me. Janice Gill PA-C 09/02/2017 [facility] Over 50% of the time of this visit was spent face to face with the patient coordinating care and counseling on symptoms, testing, rate vs rhythm control for atrial fibrillation. radio time salesperson was over 25 minutes. TY HARBORMASTER documented in this encounter Plan of Treatment Upcoming Encounters Date Type Specialty Care Team Description 06/09/2022 Appointment General Dentistry Elaine Garcia, [facility] [address] [place] [address] (Wo rk) documented as of this encounter Visit Diagnoses Diagnosis Paroxysmal atrial fibrillation (HRC) - P rimary Atrial fibrillation Heart palpitations Palpitations Essential hypertension (HRC) Unspecified essential hypertension TANNER (dyspnea on exertion) Other dyspnea and respiratory abnormalit y documented in this encounter Care Teams Extras Casting Director Relationship Specialty Start Date End Date Alisha Kimball MD PCP - General 07/08/05 [address] [place] [address] documented as of this encounter
--- OUTSIDE RECORDS SUMMARY | 2022-05-29 13:31 | XMS_ITS | Encounter Summary ---
:1955 Author Organization [facility] Address [address], [place] [address] Care Team Providers Name Role Phone Alisha Kimball MD Primary Care Provider Reason for Visit Reason Comments Dental Hygiene none Encounter Details Date Type Department Care Team Description 06/10/2018 Office Visit [facility] Tiffanie Fletcher Dental Hygiene (none) Dentistry [address] [facility] [address] [place] [address] [phone] Social History Tobacco Use Types Packs/Day Years Used Date Smoking Tobacco: Never Smokeless Tobacco: Never Alcohol Use Standard Drinks/Week Comments No 0 (1 standard drink = 0.6 oz pure alcoho l) Sex Assigned at Date Recorded Not on file documented as of this encounter Last Filed Vital Signs Vital Sign Reading Time Taken Comments Blood Pressure 117/69 06/10/2018 10:55 AM ASSEMBLER INSTALLER STRUCTURES Pulse - - Temperature - - Respiratory [...] procedures in this visit. --End of Note-- MBLER INSTALLER STRUCTURES documented in this encounter Plan of Treatment Upcoming Encounters Date Type Specialty Care Team Description 06/09/2022 Appointment General Dentistry Elaine Garcia, [facility] [address] [place], [place] [id number] (Wo rk) documented as of this encounter Procedures Procedure Name Priority Date/Time Associated Diagnosis Comme nts PROPHYLAXIS-ADULT Routine 06/10/2018 11:00 AM ASSEMBLER INSTALLER STRUCTURES Localized gi ngivitis RECALL documented in this encounter Visit Diagnoses Diagnosis Localized gingivitis - Primary Visit for periodic health examination Unspecified general medical examination documented in this encounter Care Teams Civil Engineering Teacher Relationship Specialty Start Date End Date Alisha Kimball MD PCP - General 07/08/05 [address] [place] [address] documented as of this encounter
--- OUTSIDE RECORDS SUMMARY | 2022-05-29 13:31 | XMS_ITS | Encounter Summary ---
:1955 Author Organization [facility] Address [address] [place] [address] Care Team Providers Name Role Phone Alisha Kimball MD Primary Care Provider Reason for Referral Consult/Transfer Care (Routine) - Closed Specialty Diagnoses / Procedures Referred By Contact Refer red To Contact Diagnoses Type 2 diabetes mellitus without complication, without long-term current use of insulin (HRC) Alisha Kimball MD [address] [facility] [place] [address] Referral ID Status Reason Start Date Expiration Date Visits Requ ested Visits Authorized [id number] Closed 07/26/2018 10/25/2019 1 1 Scheduling Instructions Your provider [facility]. You may call [phone] to schedule your a ppointment. If you prefer, a porcelain enamel repairer will contact you within the next 3 business d ays to assist you in setting up this appointment. We suggest you call your [employer] Scribbles insurance company about your coverage and benefits for this appointment. TED PRODUCTS ASSEMBLER Reason for Visit Reason Comments QUESTIONS, GENERAL Orders Needed Encounter Details Date Type Department Care Team Description 07/26/2018 Telephone [facility] Alisha Kimball MD QUESTIONS, GENERAL; Practice [address] Orders Needed [address] [place] [address] [place] [address] [phone] Social History Tobacco Use Types Packs/Day Years [...] below. Floresita Morris LPN 07/26/2018, 1:47 PM TED PRODUCTS ASSEMBLER Alisha Kimball MD - 07/26/2018 1:43 PM CST Order placed for Endocrinology. Alisha Kimball MD TED PRODUCTS ASSEMBLER Maria E Castillo LPN - 07/26/2018 10:58 AM CST Please review/sign pended order and route response back to Leslie [facility]RETT [facility] MEDICINE DOCTOR.Thank you, Maria E Castillo LPN Radha Capellan - 07/26/2018 9:17 AM CST Miscellaneous Questions [Appt Center: If this call is after 3 p.m., communicate to patient: If we are not able to get back to you by the end of the day and your symptoms worsen please contact the Careline at [phone] OR at .] Is this a question/concern [...] outside of our family of care? (Ex. [facility]) No Orders - All Orders [Appt Center: If this call is after 3 p.m., communicate to patient: If we are not able to get back to you by the end of the day and your symptoms worsen please contact the Careline at [phone] OR at .] What order (Lab, Radiology, Specialty, DME, etc) is being requested? DIABETIC SPECIALIST Why is this order being requested? MANAGE DIABETES, PT RECEIVED A LETTER THROUGH THE MAIL TO BE SEEN W/ TAB CARD PRESS OPERATOR. Have you been seen recently for this concern? No [Appt Center:If patient was seen at an outside location, please obtain records] Is it okay to leave a detailed message on your voicemail? Yes [Appt Center: Instruct patient to check with insurance company for coverage] Is there anything else I can help you with today? Radha Malik TED PRODUCTS ASSEMBLER documented in this encounter Plan of Treatment Upcoming Encounters Date Type Specialty Care Team Description 06/09/2022 Appointment General Dentistry Elaine Garcia, [facility] [address] [place], [place] [id number] (Wo rk) Scheduled Referrals Name Type Priority Associated Diagnoses Order S [facility] Endocrinology Referral Routine Type 2 diabetes Ordered: Consult-Adults mellitus without complication, without long-term current use of insulin (HRC) documented as of this encounter Visit Diagnoses Diagnosis Type 2 diabetes mellitus without complic ation, without long-term current use of insulin (HRC) - Primary documented in this encounter Care Teams Bulb Inspector Relationship Specialty Start Date End Date Alisha Kimball MD PCP - General 07/08/05 [address] [place] [address] documented as of this encounter
--- OUTSIDE RECORDS SUMMARY | 2022-05-29 13:31 | XMS_ITS | Encounter Summary ---
:1955 Author Organization [facility] Address [address] [place] [address] Care Team Providers Name Role Phone Alisha Kimball MD Primary Care Provider Encounter Details Date Type Department Care Team Description 11/26/2017 Lab Visit [facility] Essential hypertension (Prim levy Dx); [address] [facility] Paroxysmal atrial fibrillati on ([facility]); [place] [address] Controlled type 2 diabetes m ellitus without complication, without long-term current use of insulin ([facility]); [phone] Type 2 diabetes mellitus with hyperosmolarity without coma, without long-term current use of insulin ([facility]) Social History Tobacco Use Types Packs/Day [...] Dentistry Elaine Garcia, [facility] [address] [place] [address] (Wo rk) documented as of [...] Results Microalb/Creat Ratio (12/02/2017 7:57 AM CDT) Patholo gist Method Time Signature Albumin, 2.3 mg/L [...] 1:00 PM C DT Performed at [facility], [address] [place] [address] Alisha Kimball MD LAB_1 Performing Organization Address City/State/ZIP Code Phon e Number [facility] [phone] Basic Metabolic Panel (11/26/2017 7:30 AM CDT) [...] - 11/26/2017 12:05 PM CDT Performed at [address] ??[address] Alisha Kimball MD LAB_1 Performing Organization Address [facility] Phon e Number [facility] [phone] (ABNORMAL) Hgb A1c (11/26/2017 7:30 AM CDT) [...] - 11/26/2017 12:56 PM CDT Performed at [address] ??[address] Alisha Kimball MD LAB_1 Performing Organization Address City/State/ZIP Code Phon e Number [facility] [phone] Lipid Panel and Direct LDL(If Needed) (11/26/2017 7:30 AM CDT) [facility] gist Method Time Signature Hours Fasting 12 [...] - 11/26/2017 12:05 PM CDT Performed at [address] ??[address] Alisha Kimball MD LAB_1 Performing Organization Address City/[facility] Phon e Number [facility] [phone] ALT (SGPT) (11/26/2017 7:30 AM CDT) athologist Signature ALT (SGPT) 44 0 - 55 U/L [facility] Specimen Anatomical Collection Method Collection Time Receive d Time (Source) Location / / Volume Laterality 11/26/2017 7:30 AM 8 7:33 CDT AM CDT Narrative [facility] - 11/26/2017 12:06 PM CDT Performed at [address] ??[address] Janice Gill PA-C LAB_1 Performing Organization Address City/[facility]/ZIP Code Phon e Number [facility] [phone] AST (11/26/2017 7:30 AM CDT) P athologist Signature AST (SGOT) 26 10 - 40 U/L [facility] Specimen Anatomical Collection Method Collection Time Receive d Time (Source) Location / / Volume Laterality 11/26/2017 7:30 AM 8 7:33 CDT AM CDT Narrative [facility] - 11/26/2017 12:06 PM CDT Performed at [facility], [address] [place] [address], [place], [place] ??[address] Janice Gill PA-C LAB_1 Performing Organization Address City/State/ZIP Code Phon e Number [facility] [phone] documented in this encounter Visit Diagnoses Diagnosis [...] (HRC) documented in this encounter Care Teams Asset Administrator Relationship Specialty Start Date End Date Alisha Kimball MD PCP - General 07/08/05 [address] [place] [address] documented as of this encounter
--- OUTSIDE RECORDS SUMMARY | 2022-05-29 13:31 | XMS_ITS | Encounter Summary ---
:1955 Author Organization [facility] Address [address] [place] [address] Care Team Providers Name Role Phone Alisha Kimball MD Primary Care Provider Reason for Visit Reason Comments [facility] 5 Encounter Details Date Type Department Care Team Description 05/13/2018 Office Visit [facility] Charles Cleveland DDS [address] [place] [address] [facility] [place], Exam Services (5) [address] [place] [address] Social History Tobacco Use Types [...] Loc (63 y.o.) was seen today for [facility] (5) CHART REVIEW Reviewed [...] ??? 5 PORCELAIN CROWN --End of Note-- MOWER documented in this encounter Plan of Treatment Upcoming Encounters Date Type Specialty Care Team Description 06/09/2022 Appointment General Dentistry Elaine Garcia, [facility] [address] [place] [address] (Wo rk) documented as of this encounter Procedures Procedure Name Priority Date/Time Associated Diagnosis Comme nts 5 PORCELAIN CROWN Routine 05/13/2018 3:01 PM LAWN MOWER Fracture of c rown, enamel, and dentin of tooth without pulp exposure documented in this encounter Visit Diagnoses Diagnosis Fracture of crown, enamel, and dentin of tooth without pulp exposure - Primary documented in this encounter Care Teams Guide Plant Relationship Specialty Start Date End Date Alisha Kimball MD PCP - General 07/08/05 [address] [place] [address] documented as of this encounter
--- OUTSIDE RECORDS SUMMARY | 2022-05-29 13:31 | XMS_ITS | Encounter Summary ---
:1955 Author Organization [employer] [facility] Address [address] [place] [address] Care Team Providers Name Role Phone Alisha Kimball MD Primary Care Provider Encounter Details Date Type Department Care Team Description 04/27/2018 Refill Order [facility] Alisha Kimball MD [address] [facility] [address] [facility] [place] [address] [place] [address] (Wo rk) Social History Tobacco [...] to encounter. - LAST QUALIFYING VISIT IN [facility]: 12/07/2017 - NEXT SCHEDULED VISIT: [...] You can schedule your appointment online at invi or by calling the appointment center at the phone number listed above. Thank you for choosing [email or web address]. The [facility] Refill Center Powered by [employer], Reference: [id number], 04/27/2018 1:37:44 AM CDT, Pool: ARNOLD AMEZQUITA RN ([id number]) Interface, Out sciencebite Query - 04/27/2018 1:37 AM CDT The [...] Description 06/09/2022 Appointment General Dentistry Elaine Garcia, [facility] [address] [place], [place] [phone] (Wo rk) documented as of this encounter Results (ABNORMAL) Hgb A1c (05/23/2018 7:45 AM PROJECT CONSULTANT) athologist Signature Hgb A1c 8.2 (H) 4.3 [...] Volume Laterality 05/23/2018 7:45 AM 8 7:46 PROJECT CONSULTANT AM PROJECT CONSULTANT Narrative [facility] - 05/23/2018 2:[address] Performed at [facility], [address] [place] [address] ??[address] Alisha Kimball MD LAB_1 Performing Organization Address City/State/ZIP Code Phon e Number [facility] [phone] documented in this encounter Visit Diagnoses Diagnosis Encounter for long-term (current) use of medications - Primary Encounter for long-term (current) use of other medications Encounter for long-term (current) use of medications Encounter for long-term (current) use of other medications documented in this encounter Care Teams District Court Judge Relationship Specialty Start Date End Date Alisha Kimball MD PCP - General 07/08/05 [address] [place] [address] documented as of this encounter
--- OUTSIDE RECORDS SUMMARY | 2022-05-29 13:31 | XMS_ITS | Encounter Summary ---
:1955 Author Organization [facility] [facility] Address [address] [place] [address] Care Team Providers Name Role Phone Alisha Kimball MD Primary Care Provider Reason for Visit Reason Comments Lab Orders Needed Encounter Details Date Type Department Care Team Description 10/12/2017 Telephone [facility] Alisha Kimball MD Lab Orders Needed [address] [place] [address] [place], [place] [phone] (Wo rk) Social History Tobacco Use Types [...] General Dentistry Elaine Garcia, [facility] [address] [place], [place] [phone] (Wo rk) documented as of this encounter Results Basic Metabolic [...] 12:05 PM CDT Performed at [facility], [address] [place] [address] ??[address] Alisha Kimball MD LAB_1 Performing Organization Address City/State/ZIP Code Phon e Number [facility] [phone] (ABNORMAL) Hgb A1c (11/26/2017 7:30 AM CDT) [...] 12:56 PM CDT Performed at [facility], [address] [place] [address] ??[address] Alisha Kimball MD LAB_1 Performing Organization Address City/[facility] Phon e Number [facility] [phone] Lipid Panel and Direct LDL(If Needed) (11/26/2017 7:30 AM CDT) [facility] Method Time Signature Hours Fasting 12 [...] 12:05 PM CDT Performed at [facility], [address] [place] [address] ??[address] Alisha Kimball MD LAB_1 Performing Organization Address City/[facility] Phon e Number [facility] [phone] documented in this encounter Visit Diagnoses Diagnosis [...] (HRC) documented in this encounter Care Teams Cartographic Aide Relationship Specialty Start Date End Date Alisha Kimball MD PCP - General 07/08/05 [address] [place] [id number] documented as of this encounter
--- OUTSIDE RECORDS SUMMARY | 2022-05-29 13:31 | XMS_ITS | Encounter Summary ---
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 [address] [address] [facility] [phone] [place], [place] [phone] Social History Tobacco Use Types Packs/Day Years [...] 06/09/2022 Appointment General Dentistry Elaine Garcia, [place] [address] [place], [place] [phone] (Wo rk) documented as of this encounter Visit Diagnoses Diagnosis Type 2 diabetes mellitus with right eye affected by mild nonproliferative retinopathy without macular edema, without long-term current use of insulin (HRC) - Primary Presbyopia documented in this encounter Care Teams Supervisor Finishing Relationship Specialty Start Date End Date Alisha Kimball MD PCP - General 07/08/05 [address] [place] [address] documented as of this encounter
--- OUTSIDE RECORDS SUMMARY | 2022-05-29 13:31 | XMS_ITS | Encounter Summary ---
:1955 Author Organization [facility] Address [address] [place] [address] Care Team Providers Name Role Phone Carroll Avalos MD Primary Care Provider Reason for Visit Reason Comments Refill metFORMIN XR (GLUCOPHAGE XR) 500 MG 24 hour release tablet [Pharmacy Med Name: METFORMIN ER 500 MG TABLET] Encounter Details Date Type Department Care Team Description 07/24/2018 [facility] Refill (metFORMIN XR [address] [facility] [address] (GLUCOPHAGE XR) 500 [place] [address] [place] [address] 24 hour release tablet [phone] (Wo rk) [Pharmacy Med Name: METFORMIN ER [...] CST per standing order. Anne Neumann RN [employer] Interface, Out Surescripts Prov Query - 07/24/2018 [...] HBA1C check) Last qualifying visit: 12/07/2017 (in [facility]) Next scheduled visit: None Last ordered by CARROLL AVALOS K: 01/31/2018 (174 days ago) QTY: 360, Refills: 1, Sig: take 4 tabletsby mouth daily with breakfast (unchanged) Cr: 0.86 mg/dL on 11/26/2017 HBA1C: 8.2 % on 05/23/2018 Powered by Mobile Complete, Reference: [id number], 07/24/2018 8:19:59 AM CULINARY INTERNSHIP, Pool: ARNOLD AMEZQUITA RN ([id number]) [employer] Interface, Out TheFriendMail Query - 07/24/2018 8:20 AM CST The following lab order(s) may be associated with the Result Note below: AST Notes Recorded by Dlalas Nguyen RN on 11/26/2017 at 12:44 PM Letter sent with normal AST/ALT lab results. Dallas Nguyen RN 11/26/2017, 12:44 PM [employer] documented in this encounter Plan of Treatment Upcoming Encounters Date Type Specialty Care Team Description 06/09/2022 Appointment General Dentistry Elaine Garcia, [address] [place], [place] [phone] (Wo rk) documented as of this encounter Visit Diagnoses Not on filedocumented in this encounter Care Teams Polysomnographic Tech Relationship Specialty Start Date End Date Carroll Avalos MD PCP - General 07/08/05 [address] [place] [address] documented as of this encounter
--- OUTSIDE RECORDS SUMMARY | 2022-05-29 13:31 | XMS_ITS | Encounter Summary ---
:1955 Author Organization [employer] Address [address], [place] [address] Care Team Providers Name Role Phone Alisha Kimball MD Primary Care Provider Reason for Visit Reason Comments Broken Tooth Encounter Details Date Type Department Care Team Description 02/22/2018 Telephone [facility] Unassigned, Provider Broken Tooth Dentistry [address] [place] [id number] [place] [address] Social History Tobacco Use Types Packs/Day Years [...] causing your problem? [] Accident [] Lost Rastafarian [x] Broken Tooth [] Chipped Tooth [] [...] 06/09/2022 Appointment General Dentistry Elaine Garcia, [facility] [address] [place] [address] (Wo rk) documented as of this encounter Visit Diagnoses Not on filedocumented in this encounter Care Teams Unit Secretary Relationship Specialty Start Date End Date Alisha Kimball MD PCP - General 07/08/05 [address] [place], [place] [phone] documented as of this encounter
--- OUTSIDE RECORDS SUMMARY | 2022-05-29 13:31 | XMS_ITS | Encounter Summary ---
:1955 Author Organization [employer] Address [address], [place] [address] Care Team Providers Name Role Phone Alisha Kimball MD Primary Care Provider Reason for Visit Reason Comments Dental Hygiene none Encounter Details Date Type Department Care Team Description 02/07/2018 Office Visit [facility] Tiffanie Fletcher [address] [place], [place] [id number] Dental Hygiene (none) Dentistry [place], Exam [address] [place] [address] Social History Tobacco Use Types [...] by the dentist; dental hygienist or dental dental assistant teacher Specific information about what causes periodontal disease [...] should help you maintain this low risk. [place], we look forward to seeing you at your next visit! Thank you for choosing [facility]. documented in this encounter Progress Notes Janiya Fletcher - 02/07/2018 8:50 AM CDT PROPHY NOTE PROPHY/ASSESSMENT:50376::PROPHY NOTE Collaborative Agreement Patient consents to have [...] General Dentistry Elaine Garcia, [facility] [address] [place], [place] [phone] (Wo rk) documented as of this encounter Procedures Procedure Name Priority Date/Time Associated Diagnosis Comme [facility] PERIODIC ORAL EVALUATION Routine 02/07/2018 10:03 AM Localized gingivitis CDT PROPHYLAXIS-ADULT RECALL Routine 02/07/2018 10:03 AM Localized gingivitis CDT documented in this encounter Visit Diagnoses Diagnosis Localized gingivitis - Primary documented in this encounter Care Teams Steam Bone Press Tender Relationship Specialty Start Date End Date Alisha Kimball MD PCP - General 07/08/05 [address] [place] [address] documented as of this encounter
--- OUTSIDE RECORDS SUMMARY | 2022-05-29 13:31 | XMS_ITS | Encounter Summary ---
:1955 Author Organization [facility] Address [address], [place] [address] Care Team Providers Name Role Phone Alisha Kimball MD Primary Care Provider Reason for Visit Reason Comments Disease Registry Encounter Details Date Type Department Care Team Description 09/28/2017 Telephone [facility] Alisha Steinberg MD Disease Registry [address] [facility]. [address] [place] [address] [place], [place] [id number] (Wo rk) Social History Tobacco Use Types [...] Dentistry Elaine Garcia, [facility] [address] [place] [address] (Wo rk) documented as of this encounter Visit Diagnoses Not on filedocumented in this encounter Care Teams Manager Gaming Relationship Specialty Start Date End Date Alisha Kimball MD PCP - General 07/08/05 [address] [place] [address] documented as of this encounter
--- OUTSIDE RECORDS SUMMARY | 2022-05-29 13:31 | XMS_ITS | Encounter Summary ---
:1955 Author Organization [facility] Address [address] [place] [address] Care Team Providers Name Role Phone Alisha Kimball MD Primary Care Provider Reason for Visit Reason Comments Refill ELIQUIS 5 MG tablet [Pharmac y Med Name: ELIQUIS 5 MG TABLET] Encounter Details Date Type Department Care Team Description 06/12/2018 Refill [facility] Janice Gill , Refill (ELIQUIS 5 MG Cardiology PA-C tablet [Pharmacy Med [address] [place] [address] Name: ELIQUIS 5 [place] [address] TABLET]) [phone] Social History Tobacco Use Types Packs/Day Years [...] encounter. Paula Salcido RN 06/20/2018, 4:45 PM OR STEAM FITTER FURNACE INSTALLER Lyn Payne - 06/16/2018 4:50 PM CST Pt informed. Lyn Payne 06/16/2018, 4:50 PM OR STEAM FITTER FURNACE INSTALLER Alisha Kimball MD - 06/16/2018 4:32 PM CST Done. Alisha Kimball MD OR STEAM FITTER FURNACE INSTALLER Tara Ricketts - 06/16/2018 4:07 PM CST .Patient states Dr. Kimball is supposed to order this and not the pastoral assistant. Requesting 90 day supply and is leaving town this Wednesday for a few months. OR STEAM FITTER FURNACE INSTALLER Interface, Out Surescripts Prov Query - 06/12/2018 [...] results. Dallas Nguyen RN 11/26/2017, 12:44 PM OR STEAM FITTER FURNACE INSTALLER Interface, Out Surescripts Prov Query - 06/12/2018 [...] FOR: - COMPLETE BLOOD COUNT Powered by [employer], Reference: [id number], 06/12/2018 8:29:39 AM PIPE OR STEAM FITTER FURNACE INSTALLER, Pool: Cardiology Refill RN ([id number]) OR STEAM FITTER FURNACE INSTALLER documented in this encounter Plan of Treatment Upcoming Encounters Date Type Specialty Care Team Description 06/09/2022 Appointment General Dentistry Elaine Garcia, RDH [address] [place] [address] (Wo rk) documented as of this encounter Visit Diagnoses Diagnosis Paroxysmal atrial fibrillation (HRC) - P rimary Atrial fibrillation documented in this encounter Care Teams Pasteurizing Machine Operator Relationship Specialty Start Date End Date Alisha Kimball MD PCP - General 07/08/05 [address] [place] [address] documented as of this encounter
--- OUTSIDE RECORDS SUMMARY | 2022-05-29 13:31 | XMS_ITS | Encounter Summary ---
:1955 Author Organization [employer] Address [address] [place] [address] Care Team Providers Name Role Phone Alisha Kimball MD Primary Care Provider Reason for Visit Reason Comments MEDICATION THERAPY MANAGEMENT Encounter Details Date Type Department Care Team Description 10/25/2017 Office Visit [facility] Kailey Christine Essential hypertension [address] Zavaleta, PharmD (Primary Dx) [place], [place] [phone] Social History Tobacco Use Types Packs/Day Years [...] follow up appointments with me please call: [phone]. To leave a phone message for me please call the clinic directly. [facility] at [phone] (stay onthe line -- don't push an option) and leave a message with the sales receptionist. Kailey Christine, PharmMelany documented in this encounter Progress Notes Kailey Christine PharmMelany - 10/25/2017 7:30 AM CDT Subjective Loc Velasco is a 62 y.o. old female who was referred by Insurance [employer] for medication review/education. Pt reports doing well [...] work with lifestyle changes Follow up with MTM Pharmacist in 6 months Updated [place] med list and reviewed medications including indications with patient. Total time spent with patient 30 minutes. Kailey Christine PharmD Clinical Pharmacist Medication Therapy Management Program Recipient of visit: Patient Medicare CI: no # of DTPs: 0 # of DTPs resolved: 0 documented in this encounter Plan of Treatment Upcoming Encounters Date Type Specialty Care Team Description 06/09/2022 Appointment General Dentistry Elaine Garcia, [facility] [address] [place] [address] (Wo rk) documented as of this encounter Visit Diagnoses Diagnosis Essential hypertension (HRC) - Primary Unspecified essential hypertension documented in this encounter Care Teams Art Objects Repairer Relationship Specialty Start Date End Date Alisha Kimball MD PCP - General 07/08/05 [address] [place] [address] documented as of this encounter
--- OUTSIDE RECORDS SUMMARY | 2022-05-29 13:31 | XMS_ITS | Encounter Summary ---
:1955 Author Organization [facility] Address [address] [address] Care Team Providers Name Role Phone Alisha Kimball MD Primary Care Provider Reason for Visit Reason Comments Dental Exam none Dental Hygiene Encounter Details Date Type Department Care Team Description 09/17/2017 Office Visit [facility] Travis Turner Denta l Exam (none); Dentistry [facility] Dental Hygiene [address] [facility] [address] [facility] 103 [facility] 103 [place] [address] [place] [address] Social History Tobacco Use Types Packs/Day Years [...] this encounter Patient Instructions Patient InstructionsTravis Turner RDH - 09/17/2017 2:00 PM CDT Your next [...] should help you maintain this low risk. [place], we look forward to seeing you at your next visit! Thank you for choosing [facility]. documented in this encounter Progress Notes Travis Turner RDH - 09/17/2017 2:00 PM CDT PROPHY NOTE PROPHY/ASSESSMENT:[id number]::PROPHY NOTE Presentation ?? Oral Hygiene: normal ?? [...] ORAL EVALUATION Chief Complaint: Treatment Options: ??? [id number] Montse Leblanc DDS - 09/17/2017 2:00 PM [...] 6 months Recall prophy: 6 months Montse Leblnac DDS 09/17/2017, 2:52 PM documented in this encounter Plan of Treatment Upcoming Encounters Date Type Specialty Care Team Description 06/09/2022 Appointment General Dentistry Elaine Garcia, [facility] [address] [place] [address] (Wo rk) documented as of this encounter Procedures Procedure Name Priority Date/Time Associated Diagnosis Comme nts [id number] Routine 09/17/2017 2:54 PM CDT Chronic charlie odontitis, localized, slight PERIODIC ORAL Routine 09/17/2017 2:54 PM CDT Chronic periodont itis, EVALUATION localized, slight PROPHYLAXIS-ADULT Routine 09/17/2017 2:54 PM CDT Chronic perio dontitis, RECALL localized, slight 20 EXISTING ROOT CANAL Routine 10/02/2011 11:00 PM TREATMENT CDT 15 EXISTING PFM CROWN Routine 07/09/2009 12:00 AM DYE BLENDER 19 EXISTING PFM CROWN Routine 07/09/2009 12:00 AM DYE BLENDER 20 EXISTING PFM CROWN Routine 07/09/2009 12:00 AM DYE BLENDER 5 DO EXISTING AMALGAM Routine 07/09/2009 12:00 AM FILLING DYE BLENDER 21 DO EXISTING AMALGAM Routine 07/09/2009 12:00 AM FILLING DYE BLENDER 13 DO EXISTING AMALGAM Routine 07/09/2009 12:00 AM FILLING DYE BLENDER 2 MO EXISTING AMALGAM Routine 07/09/2009 12:00 AM FILLING DYE BLENDER 2 L EXISTING AMALGAM Routine 07/09/2009 12:00 AM FILLING DYE BLENDER 4 MOD EXISTING AMALGAM Routine 07/09/2009 12:00 AM FILLING DYE BLENDER 29 O EXISTING AMALGAM Routine 07/09/2009 12:00 AM FILLING DYE BLENDER documented in this encounter Visit Diagnoses Diagnosis Chronic periodontitis, localized, slight - Primary Gingivitis, chronic, non-plaque induced Chronic gingivitis, non-plaque induced Fractured dental taoist with loss o f material Fractured dental restorative material wi th loss of material Tooth fracture Open wound of tooth (broken) (fractured) (due to trauma), without mention of complication Visit for periodic health examination Unspecified general medical examination Pulp necrosis Necrosis of dental pulp Tooth sensitivity Other specified diseases of hard tissues of teeth Open margin on tooth taoist Open taoist margins Caries of dentin Dental caries extending into dentine Periodontal disease Unspecified gingival and periodontal dis ease documented in this encounter Care Teams Director Of Cloud Services Relationship Specialty Start Date End Date Alisha Kimball MD PCP - General 07/08/05 [address] [place] [address] documented as of this encounter
--- OUTSIDE RECORDS SUMMARY | 2022-05-29 13:31 | XMS_ITS | Encounter Summary ---
:1955 Author Organization [facility] Address [address] [place] [address] Care Team Providers Name Role Phone Carroll Avalos MD Primary Care Provider Reason for Visit Reason Comments Refill losartan (COZAAR) 50 MG tabl et [Pharmacy Med Name: LOSARTAN POTASSIUM 50 MG TAB] Encounter Details Date Type Department Care Team Description 04/27/2018 [facility] Carroll Avalos MD Refill (losartan [address] [facility] [address] (COZAAR) 50 [place] [address] [place] [address] [Pharmacy Med Name: [phone] (Wo rk) LOSARTAN POTASSIUM 50 MG TAB]) [...] K check) Last qualifying visit: 12/07/2017 (in [facility]) Next scheduled visit: None Last ordered by CARROLL AVALOS K: 05/11/2017 (351 days ago) QTY: 90, Refills: 3, Sig: take one tabletby mouth every day (changed but equivalent) SBP: 134 mm Hg on 04/25/2018 DBP: 88 mm Hg on 04/25/2018 Cr: 0.86 mg/dL on 11/26/2017 K: 4.3 mEq/L on 11/26/2017 Powered by [employer], Reference: [id number], 04/27/2018 1:37:43 AM CDT, Pool: ARNOLD AMEZQUITA RN ([id number]) Interface, Out Nuvilex Prov Query - 04/27/2018 1:37 AM CDT The [...] [facility] [address] [place], [place] [id number] (Wo rk) documented as of this encounter Visit Diagnoses Not on filedocumented in this encounter Care Teams Ethologist Relationship Specialty Start Date End Date Carroll Avalos MD PCP - General 07/08/05 [address] [place], [place] [phone] documented as of this encounter
--- OUTSIDE RECORDS SUMMARY | 2022-05-29 13:31 | XMS_ITS | Encounter Summary ---
:1955 Author Organization [facility] Address [address] [place] [address] Care Team Providers Name Role Phone Alisha Kimball MD Primary Care Provider Encounter Details Date Type Department Care Team Description 12/02/2017 Notes/Orders [facility] [place], Type 2 diabetes mellitus 205 [facility] [place] [address] without coma, without [phone] [place] [address] insulin (HRC) Social History Tobacco Use Types [...] Dentistry Elaine Garcia, [facility] [address] [place] [address] (Wo rk) documented as of this encounter Procedures Procedure Name Priority Date/Time Associated Diagnosis Comme nts ALBUMIN/CREAT Routine 12/02/2017 7:57 AM Type 2 diabetes Resul ts for this RATIO CDT mellitus with procedure are in hyperosmolarity without the results coma, without long-term sect ion. current use of insulin (HRC) documented in this encounter Results Microalb/Creat Ratio (12/02/2017 7:57 AM CDT) [facility] gist Method Time Signature Albumin, 2.3 mg/L [...] 1:00 PM C DT Performed at [facility], [address] [place] [address] ??[id number] Alisha Kimball MD LAB_1 Performing Organization Address City/State/[facility] Code Phon e Number [facility] [phone] documented in this encounter Visit Diagnoses Diagnosis Type 2 diabetes mellitus with hyperosmol arity without coma, without long-term current use of insulin (HRC) documented in this encounter Care Teams Call Center Director Relationship Specialty Start Date End Date Alisha Kimball MD PCP - General 07/08/05 [address] [place] [address] documented as of this encounter
--- OUTSIDE RECORDS SUMMARY | 2022-05-29 13:31 | XMS_ITS | Encounter Summary ---
:1955 Author Organization [facility] Address [address] [place] [address] Care Team Providers Name Role Phone Alisha Kimball MD Primary Care Provider Reason for Visit Reason Comments [facility] 5 Encounter Details Date Type Department Care Team Description 05/31/2018 Office Visit [facility] Charles Cleveland DDS [address] [place] [address] [facility] [place], Exam Services (5) [address] [place] [address] Social History Tobacco Use Types [...] Loc (63 y.o.) was seen today for [facility] (5) CHART REVIEW Reviewed [...] with resin-modified glass ionomer Radiographs made with mormonism in place and reviewed. Verified occlusion, contacts, margins, aesthetics and cement removal. Adjusted and polished proximalcontacts, patient comfortable Patient was advised of normal post-operative instructions. NEXT VISIT Next planned visit is prophy. Care was assisted by pablo Cleveland DDS 05/31/2018, 3:49 PM Completed dental procedures in this visit ??? 5 CROWN SEAT --End of Note-- L COMBINATION TRUCK DRIVER documented in this encounter Plan of Treatment Upcoming Encounters Date Type Specialty Care Team Description 06/09/2022 Appointment General Dentistry Elaine Garcia, [facility] [address] [place] [address] (Wo rk) documented as of this encounter Procedures Procedure Name Priority Date/Time Associated Diagnosis Comme nts 5 CROWN SEAT Routine 05/31/2018 3:30 PM LOCAL COMBINATION TRUCK DRIVER Fracture of tooth enamel and dentin documented in this encounter Visit Diagnoses Diagnosis Fracture of tooth enamel and dentin - Pr imary documented in this encounter Care Teams Spray Maker Relationship Specialty Start Date End Date Alisha Kimball MD PCP - General 07/08/05 [address] [place] [address] documented as of this encounter
--- OUTSIDE RECORDS SUMMARY | 2022-05-29 13:31 | XMS_ITS | Encounter Summary ---
:1955 Author Organization [employer] [facility] [employer] Address [address] [place] [address] Care Team Providers Name Role Phone Alisha Kimball MD Primary Care Provider Reason for Visit Reason Comments Future Appointments Encounter Details Date Type Department Care Team Description [facility]/20[facility]2018 [facility] Appointments 205 [facility] [address] [place] [address] [place], [place] [phone] (Wo rk) Social History Tobacco Use Types [...] Izaiah Lema. Francisco Buck 03/14/2018, 9:36 AM Frnacisco Buck - 01/20/2018 11:45 AM CDT LM. Will post pone until February and f/u with trying to keep appt with new MTM provider for the week of that appt. Francisco Buck 01/20/2018, 11:45 AM Tita Escobar - 01/20/2018 9:12 AM CDT Miscellaneous Questions & FYI's [Bushing And Broach Operator: If this call is after 3 p.m., communicate to patient: If we are not able to get back to you by the end of the day and your symptoms worsen please contact the Careline at [phone] at .] Is this a question/concern or [...] Yes Tita Escobar Please route to: None (concrete swimming pool installer if unable to handle) documented in this encounter Plan of Treatment Upcoming Encounters Date Type Specialty Care Team Description 06/09/2022 Appointment General Dentistry Elaine Garcia, [facility] [address] [place], [place] [phone] (Wo rk) documented as of this encounter Visit Diagnoses Not on filedocumented in this encounter Care Teams Blacksmith Hammer Operator Relationship Specialty Start Date End Date Alisha Kimball MD PCP - General 07/08/05 [address] [place], [place] [phone] documented as of this encounter
--- OUTSIDE RECORDS SUMMARY | 2022-05-29 13:31 | XMS_ITS | Encounter Summary ---
:1955 Author Organization [facility] Address [address] [place] [address] Care Team Providers Name Role Phone Alisha Kimball MD Primary Care Provider Reason for Referral Procedure/Equipment (Routine) - Incomplete Specialty Diagnoses / Procedures Referred By Contact Refer red To Contact Procedures Alisha Kimball MD MM Mammogram Screening [facility] [address] [place] [address] Referral ID Status Reason Start Date Expiration Date Visits V isits Requested Authorized [id number] Incomplete 01/18/2018 04/19/2019 1 1 Reason for Visit Procedure/Equipment (Routine) - Incomplete Specialty Diagnoses / Procedures Referred By Contact Refer red To Contact Procedures Alisha Kimball MD MM Mammogram Screening [facility] [address] [place] [address] Referral ID Status Reason Start Date Expiration Date Visits V isits Requested Authorized [id number] Incomplete 01/18/2018 04/19/2019 1 1 Encounter Details Date Type Department Care Team Description 01/18/2018 Imaging [facility] ury Mammography [address] [place] [address] Social History Tobacco Use Types [...] Appointment General Dentistry Radha Elaine te [place], [address] [place] [address] (Wo rk) documented as of this encounter [...] on filedocumented in this encounter Care Teams Flask Fitter Relationship Specialty Start Date End Date Alisha Kimball MD PCP - General 07/08/05 [address] [place] [address] documented as of this encounter
--- OUTSIDE RECORDS SUMMARY | 2022-05-29 13:31 | XMS_ITS | Encounter Summary ---
:1955 Author Organization [facility] Address [address] [place] [address] Care Team Providers Name Role Phone Carroll Avalos MD Primary Care Provider Reason for Visit Reason Comments Refill atorvastatin (LIPITOR) 10 MG tablet [Pharmacy Med Name: ATORVASTATIN 10 MG TABLET] Encounter Details Date Type Department Care Team Description 02/[facility] Refill (atorvastatin [address] [facility] [address] (LIPITOR) 10 [place] [address] [place] [address] [Pharmacy Med Name: [phone] (Wo rk) ATORVASTATIN 10 MG TABLET]) Social [...] office visit) Last qualifying visit: 12/07/2017 (in [facility]) Next scheduled visit: None Last ordered by CARROLL AVALOS K: 01/22/2017 (375 days ago) QTY: 90, Refills: 3, Sig: take one tabletby mouth every day (changed but equivalent) LDL: 96 mg/dL on 11/26/2017 Powered by [employer], Reference: [id number], 02/01/2018 1:04:55 AM CDT, Pool: ARNOLD AMEZQUITA RN ([id number]) Interface, Out Ingenic Prov Query - 02/01/2018 1:04 AM CDT The [...] Dentistry Elaine Garcia, [facility] [address] [place] [address] (Wo rk) documented as of this encounter Visit Diagnoses Not on filedocumented in this encounter Care Teams Plastic Panel Installer Relationship Specialty Start Date End Date Carroll Avalos MD PCP - General 07/08/05 [address] [place] [address] documented as of this encounter
--- OUTSIDE RECORDS SUMMARY | 2022-05-29 13:31 | XMS_ITS | Encounter Summary ---
:1955 Author Organization [employer] Address [address] [place] [address] Care Team Providers Name Role Phone Alisha Kimball MD Primary Care Provider Encounter Details Date Type Department Care Team Description 05/23/2018 Lab Visit [facility] or Encounter for long-term [address] [facility] (current) use of [place], [place] [address] medications [phone] Social History Tobacco Use Types Packs/Day Years Used Date Smoking Tobacco: Never Smokeless Tobacco: Never Alcohol Use Standard Drinks/Week Comments No 0 (1 standard drink = 0.6 oz pure alcoho l) Sex Assigned at Date Recorded Not on file documented as of this encounter Plan of Treatment Upcoming Encounters Date Type Specialty Care Team Description 06/09/2022 Appointment General Dentistry Elaine Garcia, [facility] [address] [place] [address] (Wo rk) documented as of this encounter Procedures Procedure Name Priority Date/Time Associated Diagnosis Comme nts HGB A1C Routine 05/23/2018 7:45 AM Encounter for Results for this LICENSED TAX CONSULTANT long-term (current) procedur e are in use of medications the resul ts section. documented in this encounter Results (ABNORMAL) Hgb A1c (05/23/2018 7:45 AM LICENSED TAX CONSULTANT) P athologist Signature Hgb A1c 8.2 (H) [...] Volume Laterality 05/23/2018 7:45 AM 8 7:46 LICENSED TAX CONSULTANT AM LICENSED TAX CONSULTANT Narrative [facility] - 05/23/2018 2:[address] Performed at [address] ??[id number] Alisha Kimball MD LAB_1 Performing Organization Address City/State/ZIP Code Phon e Number [facility] [phone] documented in this encounter Visit Diagnoses Diagnosis Encounter for long-term (current) use of medications Encounter for long-term (current) use of other medications documented in this encounter Care Teams Siding Applicator Relationship Specialty Start Date End Date Alisha Kimball MD PCP - General 07/08/05 [address] [place] [address] documented as of this encounter
--- OUTSIDE RECORDS SUMMARY | 2022-05-29 13:31 | XMS_ITS | Encounter Summary ---
:1955 Author Organization [facility] Address [address] [place] [address] Care Team Providers Name Role Phone Alisha Kimball MD Primary Care Provider Reason for Visit Reason Comments RASH Bilateral front of legs Encounter Details Date Type Department Care Team Description 09/08/[address] [facility] ([place], [place]) Gonsalo Vernon (Pr imary Dx) Practice NAMRATA Johnson [address] [place], [place] [address] [place], [place] [phone] [address] Social History Tobacco Use Types Packs/Day Years Used Date Smoking Tobacco: Never Smokeless Tobacco: Never Alcohol Use Standard Drinks/Week Comments No 0 (1 standard drink = 0.6 oz pure alcoho l) Sex Assigned at Date Recorded Not on file documented as of this encounter Last Filed Vital Signs Vital Sign Reading Time Taken Comments Blood Pressure 132/92 09/08/2017 8:[address] OPERATIONS CLERK Pulse 60 09/08/2017 8:[address] OPERATIONS CLERK Temperature - - Respiratory Rate 20 09/08/2017 8:[address] OPERATIONS CLERK Oxygen Saturation - - Inhaled Oxygen Concentration - - Weight - - Height - - Body Mass Index - - documented in this encounter Patient Instructions Patient InstructionsAlex Vrenon MBBS - 09/08/2017 8:[address] OPERATIONS CLERK Images from the original note were not [...] interferes with your normal activities, take an bvzq-wjt-znccuol antihistamine, such as diphenhydramine (Benadryl) or loratadine [...] can you learn more? 1. Go to [employer]/SeptRx or [employer]/ColonaryConceptsrary. 2. Enter U711 in the search box. Current as of: April 16, 2016 Content Version: 11.5 ?? [id number] [employer]. Hives: Care Instructions Your Care Instructions [...] area to relieve itching. ?? Take an yrvm-zvk-alxshxz antihistamine, such as diphenhydramine (Benadryl), cetirizine (Zyrtec), [...] can you learn more? 1. Go to [employer]/SeptRx or [employer]/Single[employer]. 2. Enter K772 in the search box. Current as of: September 21, 2016 Content Version: 11.5 ?? 7732-1666 [employer]. T OPERATIONS CLERK documented in this encounter Progress Notes Alex [...] more than 3 weeks at a time. Ngtv-iig-echeeda antihistamines to help with the itching. Cool compresses, cool to lukewarm showers. Follow up if there is no improvement over the next 1-2 weeks or worsening of symptoms. Follow up for any evidence of infection or new symptoms. Patient verbalizes understanding and agrees to plan. Please see orders and patient instructions NAMRATA Sharp T OPERATIONS CLERK documented in this encounter Plan of Treatment Upcoming Encounters Date Type Specialty Care Team Description 06/09/2022 Appointment General Dentistry Elaine Garcia, [facility] [address] [place] [address] (Wo rk) documented as of this encounter Visit Diagnoses Diagnosis Rash - Primary Rash and other nonspecific skin eruption documented in this encounter Care Teams Press Clipper Relationship Specialty Start Date End Date Alisha Kimball MD PCP - General 07/08/05 [address] [place] [address] documented as of this encounter
--- OUTSIDE RECORDS SUMMARY | 2022-05-29 13:32 | XMS_ITS | Encounter Summary ---
:1955 Author Organization [facility] Address [address] [place] [address] Care Team Providers Name Role Phone Alisha Kimball MD Primary Care Provider Encounter Details Date Type Department Care Team Description 06/07/2017 Correspondence [facility] Radiology, MRI SAFETY SHEET [address] [facility] Provider AND COMPATIBILITY FORM [place], [place] [id number] Social History Tobacco Use Types Packs/Day Years Used Date Smoking Tobacco: Never Smokeless Tobacco: Never Alcohol Use Standard Drinks/Week Comments No 0 (1 standard drink = 0.6 oz pure alcoho l) Sex Assigned at Date Recorded Not on file documented as of this encounter Plan of Treatment Upcoming Encounters Date Type Specialty Care Team Description 06/09/2022 Appointment General Dentistry Elaine Garcia, [facility] [address] [place] [address] (Wo rk) documented as of this encounter Visit Diagnoses Not on filedocumented in this encounter Care Teams Wrapper Off Relationship Specialty Start Date End Date Alisha Kimball MD PCP - General 07/08/[address] [place], [place] [phone] documented as of this encounter
--- OUTSIDE RECORDS SUMMARY | 2022-05-29 13:32 | XMS_ITS | Encounter Summary ---
:1955 Author Organization [facility] Address [address] [place] [address] Care Team Providers Name Role Phone Alisha Kimball MD Primary Care Provider Reason for Visit Procedure/Equipment (Routine) - Incomplete Specialty Diagnoses / Procedures Referred By Contact Refer red To Contact Diagnoses Right ear pain Kareen Cohen, CHAVO, Procedures MR Brain W/WO IV Cont MR Brain WO IV Cont TOOL COORDINATOR [address] [place] [address] Referral ID Status Reason Start Date Expiration Date Visits V isits Requested Authorized [id number] Incomplete 05/19/2017 08/18/2018 1 1 Encounter Details Date Type Department Care Team Description 06/07/2017 Imaging [facility] Specialty Kaeren Cohen, Right ear pain Center MRI JOURNEYMAN CARPENTER, TOOL COORDINATOR [address] [place] [address] [place] [address] [phone] (Wo rk) Social History Tobacco Use Types [...] Kareen Cohen APRN, DNP 06/10/2017, 8:19 AM GRINDING MACHINE OPERATOR documented in this encounter Plan of Treatment Upcoming Encounters Date Type Specialty Care Team Description 06/09/2022 Appointment General Dentistry Elaine Garcia, [facility] [address] [place] [address] (Wo rk) documented as of this encounter Procedures Procedure Name Priority Date/Time Associated Diagnosis Comme nts MR BRAIN W/WO IV Routine 06/07/2017 10:01 AM Right ear pain Re sults for this CONT TOOL GRINDING MACHINE OPERATOR procedure are i n the results section. documented in this encounter Results MR Brain W/WO IV Cont (06/07/2017 10:01 AM TOOL GRINDING MACHINE OPERATOR) Anatomical Region Laterality Modality Head Magnetic Resonance Specimen (Source) Anatomical Collection Method Collection Time Re ceived Time Location / / Volume Laterality 06/07/2017 10:01 AM TOOL GRINDING MACHINE OPERATOR Narrative 06/07/2017 12:58 PM TOOL GRINDING MACHINE OPERATOR [facility] MRI WITHOUT AND [...] note might be different from the original. [facility] MRI WITHOUT AND [...] as detailed above . Kareen Cohen APRN, TOOL COORDINATOR RAD MRI documented in this encounter Visit Diagnoses Diagnosis Right ear pain Otalgia, unspecified documented in this encounter Administered Medications Inactive Administered Medications - up to 3 most recent administrations Medication Order MAR Action Action Date Dose Rate Site gadobutrol (GADAVIST) 1 Given 06/07/2017 10:03 AM TOOL GRINDING MACHINE OPERATOR 8 mL Right Arm MMOL/ML injection 10 mL 10 mL, Intravenous, ONCE (NON-SCHEDULED), Starting on Wed06/07/17 at 1002, Until Wed06/07/17 at 1003, For 1 dose documented in this encounter Care Teams Precise Winder Relationship Specialty Start Date End Date Alisha Kimball MD PCP - General 07/08/[address] [place] [address] documented as of this encounter
--- OUTSIDE RECORDS SUMMARY | 2022-05-29 13:32 | XMS_ITS | Encounter Summary ---
:1955 Author Organization [facility] Address [address] [place] [address] Care Team Providers Name Role Phone Alisha Kimball MD Primary Care Provider Encounter Details Date Type Department Care Team Description 04/22/2017 Notes/Orders [facility] Tamy Friedman MD Cardiology [address] [facility] [address] [place] [address] [place], [place] [phone] Social History Tobacco Use Types Packs/Day Years [...] General Dentistry Elaine Garcia, [facility] [address] [place], [place] [phone] (Wo rk) documented as of this encounter Visit Diagnoses Not on filedocumented in this encounter Care Teams Chief Client Officer Relationship Specialty Start Date End Date Alisha Kimball MD PCP - General 07/08/[address] [place], [place] [phone] documented as of this encounter
--- OUTSIDE RECORDS SUMMARY | 2022-05-29 13:32 | XMS_ITS | Encounter Summary ---
:1955 [facility] Address [address] [place] [address] Care Team Providers Name Role Phone Alisha Kimball MD Primary Care Provider Encounter Details Date Type Department Care Team Description 07/28/2017 Office Visit [address] [address] Social History Tobacco Use Types [...] [facility] [address] [place], [place] [phone] (Wo rk) documented as of this encounter Visit Diagnoses Not on filedocumented in this encounter Care Teams Flattening Press Operator Relationship Specialty Start Date End Date Alisha Kimball MD PCP - General 07/08/[address] [place], [place] [phone] documented as of this encounter
--- OUTSIDE RECORDS SUMMARY | 2022-05-29 13:32 | XMS_ITS | Encounter Summary ---
:1955 Author Organization [facility] Address [address] [place] [address] Care Team Providers Name Role Phone Alisha Kimball MD Primary Care Provider Reason for Visit Reason Comments Follow-up, NOS Encounter Details Date Type Department Care Team Description [facility], Follow-up, NOS [address] [facility] [place] [address], [place] [address] [address] [facility] [phone] [place], [place] [address] (Wo rk) Social History Tobacco Use Types Packs/Day Years Used Date Smoking Tobacco: Never Smokeless Tobacco: Never Alcohol Use Standard Drinks/Week Comments No 0 (1 standard drink = 0.6 oz pure alcoho l) Sex Assigned at Date Recorded Not on file documented as of this encounter Nursing Notes Kareen Cohen APRN, DNP - 05/19/2017 4:53 PM CST Talked with patient regarding MRI. Would recommend getting a baseline MRI for suspected trigeminal neuralgia. Patient would like to go ahead and have the imaging done. Kareen Cohen APRN, DNP 05/19/2017, 4:53 PM TROGRAPHIC ANALYST documented in this encounter Plan of Treatment Upcoming Encounters Date Type Specialty Care Team Description 06/09/2022 Appointment General Dentistry Elaine Garcia, [facility] [address] [place] [address] (Wo rk) documented as of this encounter Visit Diagnoses Diagnosis Right ear pain - Primary Otalgia, unspecified documented in this encounter Care Teams Travelift Operator Relationship Specialty Start Date End Date Alisha Kimball MD PCP - General 07/08/[address] [place], [place] [id number] documented as of this encounter
--- OUTSIDE RECORDS SUMMARY | 2022-05-29 13:32 | XMS_ITS | Encounter Summary ---
:1955 Author Organization [facility] Address [address] [place] [address] Care Team Providers Name Role Phone Alisha Kimball MD Primary Care Provider Encounter Details Date Type Department Care Team Description 05/15/[address] [facility] Tamy Friedman MD Cardiac Non-Invasive Lab [address] [facility] [address] [place] [address] [place] [address] [phone] Social History Tobacco Use Types Packs/Day Years Used Date Smoking Tobacco: Never Smokeless Tobacco: Never Alcohol Use Standard Drinks/Week Comments No 0 (1 standard drink = 0.6 oz pure alcoho l) Sex Assigned at Date Recorded Not on file documented as of this encounter Progress Notes Alvarado Friedman MD - 05/18/2017 3:57 PM CST Frequent skipped beats (PACs) and episodes of afib with rapid rates seen on monitor. Given follow-up in cardiology is close, I would recommend discussing further treatment plans at thatvisit. INAL JUSTICE DEPARTMENT CHAIR Esteliat Lozano RN - 05/18/2017 2:07 PM CST Pt was switched to toprol 100 mg qd. Pt has cardiology f/u 05/21/17 Vandana oLzano RN INAL JUSTICE DEPARTMENT CHAIR documented in this encounter Plan of Treatment Upcoming Encounters Date Type Specialty Care Team Description 06/09/2022 Appointment General Dentistry Radha Elaine Gomez, [facility] [address] [place] [address] (Wo rk) documented as of this encounter Procedures Procedure Name Priority Date/Time Associated Diagnosis Comme nts DESIGN PRINTER BALLOON 05/15/2017 12:00 AM Resul ts for this CRIMINAL JUSTICE DEPARTMENT CHAIR procedure are i n the results section. documented in this encounter Results DESIGN PRINTER BALLOON (05/15/2017 12:00 AM CRIMINAL JUSTICE DEPARTMENT CHAIR) Specimen (Source) Anatomical Location Collection Method / Collectio n Time Received Time / Laterality Volume 05/15/2017 Narrative This result has an attachment that is no t available. Alvarado Friedman MD DUMMY/OTHER/AR documented in this encounter Visit Diagnoses Not on filedocumented in this encounter Care Teams Ship Rigger Relationship Specialty Start Date End Date Alisha Kimball MD PCP - General 07/08/05 [address] [place], [place] [phone] documented as of this encounter
--- OUTSIDE RECORDS SUMMARY | 2022-05-29 13:32 | XMS_ITS | Encounter Summary ---
:1955 Author Organization [facility] Address [address] [place] [address] Care Team Providers Name Role Phone Alisha Kimball MD Primary Care Provider Reason for Visit Reason Comments MEDICATION REVIEW AND EDUCATION Encounter Details Date Type Department Care Team Description 04/23/2017 Office Visit [facility] Kailey Christine Essential hypertension (Prim levy Dx); [address] Jensen Zavaleta PharmD Diabetes mellitus, type 2 (H RC) [place], [place] [phone] Social History Tobacco Use Types Packs/Day Years [...] this encounter Patient Instructions Patient InstructionsMarian Davis PharmD - 04/23/2017 8:00 AM CDT 1) Continue current medications. Please see me back on October 22, 2017 at 8AM. The appointment has been made for you. Thank you for coming in to see me today. Please do not hesitate to give me a call with any other questions or concerns. Marian Davis PharmD documented in this encounter Progress Notes Marian Davis PharmD - 04/23/2017 8:00 AM CDT Images from [...] with MTM Pharmacist in 6 months/ Updated [employer] med list and reviewed medications including indications [...] Description 06/09/2022 Appointment General Dentistry Elaine Garcia, [address] [place], [place] [phone] (Wo rk) documented as of this encounter Visit Diagnoses Diagnosis Essential hypertension (HRC) - Primary Unspecified essential hypertension Diabetes mellitus, type 2 (HRC) Type II or unspecified type diabetes dinora litus without mention of complication, not stated as uncontrolled documented in this encounter Care Teams Airplane Patrol Pilot Relationship Specialty Start Date End Date Alisha Kimball MD PCP - General 07/08/05 [address] [place] [address] documented as of this encounter
--- OUTSIDE RECORDS SUMMARY | 2022-05-29 13:32 | XMS_ITS | Encounter Summary ---
:1955 Author Organization [facility] Address [address] [place] [address] Care Team Providers Name Role Phone Alisha Kimball MD Primary Care Provider Reason for Referral Consult/Transfer Care (Routine) - Closed Specialty Diagnoses / Procedures Referred By Contact Refer red To Contact Diagnoses Psychophysiological insomnia Tomás Oswald MD [address] [place] [address] Referral ID Status Reason Start Date Expiration Date Visits Requ ested Visits Authorized [id number] Closed 08/30/2017 11/29/2018 1 1 Scheduling Instructions [facility] staff will be co ntacting you to schedule your CBT for Insomnia appointment. T MANAGEMENT LEAD Consult/Transfer Care (Routine) - Closed Specialty Diagnoses / Procedures Referred By Contact Refer red To Contact Diagnoses MARYANNE (obstructive sleep apnea) Tomás Oswald MD [address] [place] [address] Referral ID Status Reason Start Date Expiration Date Visits Requ ested Visits Authorized [id number] Closed 08/30/2017 11/29/2018 1 1 Scheduling Instructions [...] a co-payment, co-insurance and/or deductible. INSURED BY [employer]: If you are in sured by [facility] and plan to use a [facility] or [facility] Partner Provider of Dental Orthoti cs, we will request prior authorization for you. You will be notified by [facility] of their decision. If approved and if you plan to use a HP Provider of Dental Orthotics, the dental office will contact you to schedule an appointment. If you have not been called, please call one of these clinics where this service is provided [facility] [phone]. [facility] (scheduling at [facility] and [place]) [phone]. If you choose to use a non-HP or HP Part ner provider, you will be responsible for working with your dentist and insurance company to obtain prior authorization. [facility]: You will b e responsible for working with your dentist and insurance company to obtain prior au thorization. Today you will be provided with the order for the dental orthotic. Addit ional information will be provided upon request. It may take up to 4 weeks for y our insurance company to make a determination on prior authorization. T MANAGEMENT LEAD Reason for Visit Reason Comments New Arrival Screening #[address] Roe, neck measures 15 inches. Consult/Transfer Care (Routine) - Closed Specialty Diagnoses / Procedures Referred By Contact Refer red To Contact Diagnoses Obstructive sleep apnea syndrome Jonna Roe MD [address] [place] [address] Referral ID Status Reason Start Date Expiration Date Visits Requ ested Visits Authorized [id number] Closed 08/08/2017 11/07/2018 1 1 Encounter Details Date Type Department Care Team Description 08/30/2017 [facility] Tomás Oswald, MARYANNE (o bstructive sleep apnea) (Primary Dx); [address] [facility] [address] [facility] 401 [facility] [place] [address] [phone] Social History Tobacco Use Types Packs/Day Years Used Date Smoking Tobacco: Never Smokeless Tobacco: Never Alcohol Use Standard Drinks/Week Comments No 0 (1 standard drink = 0.6 oz pure alcoho l) Sex Assigned at Date Recorded Not on file documented as of this encounter Last Filed Vital Signs Vital Sign Reading Time Taken Comments Blood Pressure 132/80 08/30/2017 12:43 PM ASSET MANAGEMENT LEAD Pulse 60 08/30/2017 12:43 PM ASSET MANAGEMENT LEAD Temperature 36 ??C (96.8 ??F) 08/30/2017 12:43 PM ASSET MANAGEMENT LEAD Respiratory Rate 12 08/30/2017 12:43 PM ASSET MANAGEMENT LEAD Oxygen Saturation 97% 08/30/2017 12:43 PM ASSET MANAGEMENT LEAD Inhaled Oxygen Concentration - - Weight 83.9 kg (185 lb) 08/30/2017 12:43 PM ASSET MANAGEMENT LEAD Height 162.6 cm (5' 4) 08/30/2017 12:43 PM ASSET MANAGEMENT LEAD Body Mass Index 31.76 08/30/2017 12:43 PM ASSET MANAGEMENT LEAD documented in this encounter Progress Notes Tomás Oswald MD - 08/30/2017 1:00 PM CST Outpatient Sleep Medicine Consultation 08/30/2017 Name: Loc Velasco Age: 62 y.o. Date of : 1955 Date of Consultation: 08/30/2017 Consultation is requested by: Jonna Roe MD [address] [place] [address] Primary care provider: Alisha Kimball MD Reason [...] (FLONASE) 50 MCG/ACT nasal solution Place 1 Gilbert into both nostrils daily. decreaseto 1 spray [...] - PROCEDURES [address] [place] for stress incontinence Social History: Social [...] Tomás Oswald MD, PhD Diplomate of the [place] [employer] and Neurology Certified in Sleep Medicine, [place] [employer] 08/30/2017 CC: Alisha Kimball MD T MANAGEMENT LEAD documented in this encounter Plan of Treatment Upcoming Encounters Date Type Specialty Care Team Description 06/09/2022 Appointment General Dentistry Elaine Garcia [facility] [address] [place] [address] (Wo rk) Scheduled Referrals Name Type Priority [...] sleep documented in this encounter Care Teams Roofing Layer Relationship Specialty Start Date End Date Alisha Kimball MD PCP - General 07/08/05 [address] [place] [address] documented as of this encounter
--- OUTSIDE RECORDS SUMMARY | 2022-05-29 13:32 | XMS_ITS | Encounter Summary ---
:1955 Author Organization [email or web address] Address [address] [address] Care Team Providers Name Role Phone Alisha Kimball MD Primary Care Provider Reason for Referral Consult/Transfer Care (Routine) - Closed Specialty Diagnoses / Procedures Referred By Contact Refer red To Contact Diagnoses Obstructive sleep apnea syndrome Jonna Roe MD [address] [place] [address] Referral ID Status Reason Start Date Expiration Date Visits Requ ested Visits Authorized [id number] Closed 08/08/2017 11/07/2018 1 1 Scheduling Instructions . NESS WRITER Procedure/Equipment (Routine) - Closed Specialty Diagnoses / Procedures Referred By Contact Refer red To Contact Diagnoses Obstructive sleep apnea syndrome Jonna Roe MD Procedures Positive Airway Pressure - New [address] [place] [address] Referral ID Status Reason Start Date Expiration Date Visits Requ ested Visits Authorized [id number] Closed 08/08/2017 11/07/2018 1 1 NESS WRITER Reason for Visit Reason Comments SLEEP,DISTURBANCE Procedure/Equipment (Routine) - Closed Specialty Diagnoses / Procedures Referred By Contact Refer red To Contact Diagnoses Sleep disturbance Alvarado Friedman MD [address] [place] [address] Referral ID Status Reason Start Date Expiration Date Visits Requ ested Visits Authorized [id number] Closed 03/30/2017 06/29/2018 1 1 Encounter Details Date Type Department Care Team Description 07/28/2017 Sleep Procedure [facility] Sleep Ob structive sleep apnea Health Center syndrome (Primary Dx) [address] [place] [address] Social History Tobacco Use Types Packs/Day Years [...] 83 kg (183 lb) 07/28/2017 10:09 PM BUSINESS WRITER Height 162.6 cm (5' 4) 07/28/2017 10:09 PM BUSINESS WRITER Body Mass Index 31.41 07/28/2017 10:09 PM BUSINESS WRITER documented in this encounter Patient Instructions Patient InstructionsSaLuz Marina jefferson - 07/28/2017 7:30 PM CST [facility] Sleep Health Center 1. Your [...] your sleep procedure. No notes on file NESS WRITER documented in this encounter Plan of Treatment Upcoming Encounters Date Type Specialty Care Team Description 06/09/2022 Appointment General Dentistry Elaine Garcia, [facility] [address] [place] [address] (Wo rk) Scheduled Referrals Name Type Priority Associated Diagnoses Order S chedule SLEEP STUDY RESULTS Referral Routine Obstructive sleep record center specialist ea Ordered: 08/08/2017 (PULM) syndrome documented as of this encounter Procedures Procedure Name Priority Date/Time Associated Diagnosis Comme [facility] SLEEP CENTER TECH - Routine 07/28/2017 9:45 AM Obstructive sle ep Results for this SPLIT NIGHT BUSINESS WRITER apnea syndrome procedure are in the results section. documented in this encounter Results Sleep Center Tech - Split Night (07/28/2017 9:45 AM BUSINESS WRITER) [facility] gist Method Time Signature Embla Report Interpreted EMBLA Status BURKET Specimen (Source) Anatomical Collection Method Collection Time Re ceived Time Location / / Volume Laterality 07/28/2017 9:45 AM BUSINESS WRITER Jonna Roe MD [facility] [employer] Performing Organization Address City/State/ZIP Code Phon e Number [facility] [address] [place] [address] documented in this encounter Visit Diagnoses Diagnosis Obstructive sleep apnea syndrome - Prima ry Obstructive sleep apnea (adult) (pediatr ic) documented in this encounter Care Teams Change Lead Relationship Specialty Start Date End Date Alisha Kimball MD PCP - General 07/08/[address] [place], [place] [phone] documented as of this encounter
--- OUTSIDE RECORDS SUMMARY | 2022-05-29 13:32 | XMS_ITS | Encounter Summary ---
:1955 Author Organization [facility] Address [address] [place] [address] Care Team Providers Name Role Phone Alisha Kimball MD Primary Care Provider Reason for Visit Reason Comments Follow-up Encounter Details Date Type Department Care Team Description 05/21/2017 Office Visit [facility] Janice Gill ssential hypertension (Primary Dx); Cardiology EMILY Whipple Paroxysmal atrial fibrillati on (HRC) [address] [place] [address] Social History Tobacco Use Types Packs/Day Years Used Date Smoking Tobacco: Never Smokeless Tobacco: Never Alcohol Use Standard Drinks/Week Comments No 0 (1 standard drink = 0.6 oz pure alcoho l) Sex Assigned at Date Recorded Not on file documented as of this encounter Last Filed Vital Signs Vital Sign Reading Time Taken Comments Blood Pressure 135/84 05/21/2017 8:53 AM JIRA ADMINISTRATOR Pulse 57 05/21/2017 8:53 AM JIRA ADMINISTRATOR Temperature - - Respiratory Rate - - Oxygen Saturation 98% 05/21/2017 8:05 AM JIRA ADMINISTRATOR Inhaled Oxygen Concentration - - Weight 83 kg (183 lb) 05/21/2017 8:05 AM JIRA ADMINISTRATOR Height 162.6 cm (5' 4) 05/21/2017 8:05 AM JIRA ADMINISTRATOR Body Mass Index 31.41 05/21/2017 8:05 AM JIRA ADMINISTRATOR documented in this encounter Patient Instructions Patient [...] Gill PA-C You may contact us at: --[facility] scheduling number- [phone] If having symptoms of concern, please ask to speak to a nurse. The apiculturist will have a nurse call you to discuss your concerns. --After hours, contact the CareLine at [phone] or Here are Optional Education Web Sites to check out: WWW.Networked Organisms.MartMania WWW.[facility].ORG [email or web address] Thank you for choosing [facility] for your Cardiology Care. ADMINISTRATOR documented in this encounter Progress Notes Roopa Nguyen RN - 05/24/2017 1:23 PM CST Letter sent with lab results and Janice Gill's comment and recommendations Roopa Nguyen RN 05/24/2017, 1:23 PM ADMINISTRATOR Roopa Nguyen RN - 05/24/2017 1:18 PM JIRA ADMINISTRATOR Addended by: ROOPA NGUYEN on: 05/24/2017 01:18 PM Modules accepted: Orders ADMINISTRATOR Janice Gill PA-C - 05/21/2017 1:06 PM CST Baseline labs prior to starting Eliquis. Normal aside from mildly elevated ALT, which appears to be chronic and stable. Will recheck ALT again in 6 months. No changes to current plan. Janice Gill PA-C 05/21/2017, 1:06 PM ADMINISTRATOR Janice Gill PA-C - 05/21/2017 8:00 AM [...] Her son was injured initially been in [place], and they have been traveling back and [...] to contact me. Janice Gill PA-C 05/21/2017 [facility] Over 50% of the time of this visit was spent face to face with the patient coordinating care and counseling on anticoagulation indication of atrial fibrillation, discussing different anticoagulation medications, reviewing recent monitor report. english horn player was over 25 minutes. ADMINISTRATOR documented in this encounter Plan of Treatment Upcoming Encounters Date Type Specialty Care Team Description 06/09/2022 Appointment General Dentistry Elaine Garcia, [facility] [address] [place] [address] (Wo rk) documented as of this encounter Procedures Procedure Name Priority Date/Time Associated Diagnosis Comme nts CREATININE / GFR Routine 05/21/2017 9:10 Essential Results for this AM JIRA ADMINISTRATOR hypertension procedure are i n the results section. APTT (ACTIVATED Routine 05/21/2017 9:10 Essential Results f or this PARTIAL THROMBOPLASTIN AM JIRA ADMINISTRATOR hypertension proce dure are in TIME the results section. COMPLETE BLOOD Routine 05/21/2017 9:10 Essential Results fo r this COUNT-NO DIFF AM JIRA ADMINISTRATOR hypertension procedure are in the results section. ALT (SGPT) Routine 05/21/2017 9:10 Essential Results for this AM JIRA ADMINISTRATOR hypertension procedure are i n the results section. INR/PROTIME Routine 05/21/2017 9:10 Essential Results for this AM JIRA ADMINISTRATOR hypertension procedure are i n the results [...] 12:06 PM CDT Performed at [facility], [address] [place] [address] ??[id number] Janice Gill PA-C LAB_1 Performing Organization Address City/State/ZIP Code Phon e Number [facility] [phone] AST (11/26/2017 7:30 AM CDT) athologist Signature AST (SGOT) 26 10 - 40 U/L [facility] Specimen Anatomical Collection Method Collection Time Receive d Time (Source) Location / / Volume Laterality 11/26/2017 7:30 AM 8 7:33 CDT AM CDT Narrative [facility] - 11/26/2017 12:06 PM CDT Performed at [facility], [address] [place] [address] ??[address] Janice Gill PA-C LAB_1 Performing Organization Address City/[facility]/ZIP Code Phon e Number [facility] [phone] APTT (ACTIVATED PARTIAL THROMBOPLASTIN TIME (05/21/2017 9:10 AM JIRA ADMINISTRATOR) athologist Signature PTT 29.0 24.0 - 37.0 [facility] Specimen Anatomical Collection Method Collection Time Receive d Time (Source) Location / / Volume Laterality 05/21/2017 9:10 AM 7 9:13 JIRA ADMINISTRATOR AM JIRA ADMINISTRATOR Narrative [facility] - 05/21/2017 9:38 AM CS T Performed at [facility] , [address] [place] [address] Janice Gill PA-C LAB_1 Performing Organization Address City/[facility] Phon e Number [address] [address], [facility] INR/PROTIME (05/21/2017 9:10 AM JIRA ADMINISTRATOR) athologist Signature Protime 12.3 12.0 - 14.[address] [facility] INR 1.0 0.9 - 1.1 [facility] Specimen Anatomical Collection Method Collection Time Receive d Time (Source) Location / / Volume Laterality 05/21/2017 9:10 AM 7 9:13 JIRA ADMINISTRATOR AM JIRA ADMINISTRATOR Narrative [facility] - 05/21/2017 9:38 AM CS T Performed at [facility] , [address] [place] [address] Janice Gill PA-C LAB_1 Performing Organization Address City/[facility]/ZIP Code Phon e Number [address] [address], [facility] [phone] CREATININE / GFR (05/21/2017 9:10 AM JIRA ADMINISTRATOR) athologist Signature Creatinine 0.77 0.55 - [facility] 1.02 mg/dl HOSPITAL GFR, Estimated >60 >60 [facility] ml/min/1.7 [facility] 3m2 GFR, Est., If >60 >60 [facility] Black ml/min/1.7 [facility] 3m2 Specimen Anatomical Collection Method Collection Time Receive d Time (Source) Location / / Volume Laterality 05/21/2017 9:10 AM 7 9:13 JIRA ADMINISTRATOR AM JIRA ADMINISTRATOR [facility] - 05/21/2017 9:46 AM CS T Performed at [facility] , [address] [place] [address] Janice Gill PA-C LAB_1 Performing Organization Address City/State/[place] [address] [place] [address], [facility] HEMOGRAM/PLTS (05/21/2017 9:10 AM JIRA ADMINISTRATOR) athologist Signature WBC 6.8 4.0 - 11.0 [facility] RBC 4.34 4.0 - 5.2 [facility] Hemoglobin 12.9 12.0 - 16.0 [facility] g/dl [facility] HCT 38.8 36.0 - 46.0 [facility] MCV 89.4 80 - 100 fl [facility] MCH 29.7 26 - 34 pg [facility] MCHC 33.2 32 - 36 [facility] g/dl [facility] RDW 13.0 11.5 - 14.5 [facility] Platelets 219 150 - 450 [facility] MPV 9.6 9.4 - 12.4 [facility] Specimen Anatomical Collection Method Collection Time Receive d Time (Source) Location / / Volume Laterality 05/21/2017 9:10 AM 7 9:13 JIRA ADMINISTRATOR AM JIRA ADMINISTRATOR [facility] - 05/21/2017 9:25 AM CS T Performed at [facility] , [address] [place] [address] Janice Gill PA-C LAB_1 Performing Organization Address [facility] Phon e Number [address] (ABNORMAL) ALT (SGPT) (05/21/2017 9:10 AM JIRA ADMINISTRATOR) P athologist Signature ALT (SGPT) 70 (H) 0 - 55 U/L [facility] Specimen Anatomical Collection Method Collection Time Receive d Time (Source) Location / / Volume Laterality 05/21/2017 9:10 AM 201 7 9:13 JIRA ADMINISTRATOR AM JIRA ADMINISTRATOR Narrative [facility] - 05/21/2017 9:46 AM CS T Performed at [facility] , [address] [place] [address] Janice Gill PA-C LAB_1 Performing Organization Address [facility] Phon e Number [address] [address] [place] [address], [facility] documented in this encounter Visit Diagnoses Diagnosis [...] (HRC) documented in this encounter Care Teams Carpenter Repairer Relationship Specialty Start Date End Date Alisha Kimball MD PCP - General 07/08/05 [address] [place] [address] documented as of this encounter
--- OUTSIDE RECORDS SUMMARY | 2022-05-29 13:32 | XMS_ITS | Encounter Summary ---
:1955 Author Organization [facility] Address [address] [place] [address] Care Team Providers Name Role Phone Alisha Kimball MD Primary Care Provider Encounter Details Date Type Department Care Team Description 07/28/2017 Correspondence [facility] SLEEP QUESTIONNAIRE [address] [address] Social History Tobacco Use Types [...] [facility] [address] [place] [address] (Wo rk) documented as of this encounter Visit Diagnoses Not on filedocumented in this encounter Care Teams Computerized Mill Recorder Relationship Specialty Start Date End Date Alisha Kimball MD PCP - General 07/08/[address] [place], [place] [phone] documented as of this encounter
--- OUTSIDE RECORDS SUMMARY | 2022-05-29 13:32 | XMS_ITS | Encounter Summary ---
:1955 Author Organization [facility] Address [address], [place] [address] Care Team Providers Name Role Phone Carroll Avalos MD Primary Care Provider Reason for Visit Reason Comments Refill amLODIPine (NORVASC) 5 MG ta blet [Pharmacy Med Name: AMLODIPINE BESYLATE 5MG TABS]; losartan (COZAAR) 50 MG tablet [Pharmacy Med Name: LOSARTAN POTASSIUM 50MG TABS] Encounter Details Date Type Department Care Team Description 05/11/2017 Refill [facility] Carroll Avalos MD Refill (amLODIPine Practice [address] (NORVASC) 5 MG tablet [address] [place] [address] [Pharmacy Med Name: [place] [address] AMLODIPINE BESYLATE 5MG [phone] TABS]; lo sartan (COZAAR) 50 MG tablet [...] 80 mm Hg on 04/23/2017 Powered by [employer], Reference: [id number], 05/11/2017 7:41:05 AM Luis Eduardo COREY: ARNOLD AMEZQUITA RN ([id number]) losartan (COZAAR) 50 MG tablet [Pharmacy Med [...] K: 4.4 mEq/L on 03/04/2017 Powered by [employer], Reference: [id number], 05/11/2017 7:41:05 AM ICHTHYOLOGY TEACHER, Pool: ARNOLD AMEZQUITA RN ([id number]) HYOLOGY TEACHER Interface, Out KDW Prov Query - 05/11/2017 7:41 AM CST The [...] normal. Torey Marcelo MD 03/05/2017, 6:39 PM HYOLOGY TEACHER documented in this encounter Plan of Treatment Upcoming Encounters Date Type Specialty Care Team Description 06/09/2022 Appointment General Dentistry Elaine Garcia, [facility] [address] [place] [address] (Wo rk) documented as of this encounter Visit Diagnoses Not on filedocumented in this encounter Care Teams Premium Note Interest Calculator Clerk Relationship Specialty Start Date End Date Carroll Avalos MD PCP - General 07/08/05 [address] [place] [address] documented as of this encounter
--- OUTSIDE RECORDS SUMMARY | 2022-05-29 13:32 | XMS_ITS | Encounter Summary ---
:1955 Author Organization [facility] Address [address] [place] [address] Care Team Providers Name Role Phone Alisha Kimball MD Primary Care Provider Reason for Visit Reason Comments RESULTS, TEST Dr. Roe requested that we contact the patient to let her know that an order was placed for APAP and a follow up. Voicemail was left for patient to return the call. Encounter Details Date Type Department Care Team Description 08/09/2017 [facility] Jonna Roe , RESULTS, TEST (Dr [facility] MD Roe requested that [address] [place] [address] [place] [address] to let her know that [phone] (Wo rk) an order was placed for [...] left for patient to return the call. BI DEVELOPER documented in this encounter Plan of Treatment Upcoming Encounters Date Type Specialty Care Team Description 06/09/2022 Appointment General Dentistry Elaine Garcia, [facility] [address] [place], [place] [phone] (Wo rk) documented as of this encounter Visit Diagnoses Not on filedocumented in this encounter Care Teams Electric Razor Assembler Relationship Specialty Start Date End Date Alisha Kimball MD PCP - General 07/08/05 [address] [place] [address] documented as of this encounter
--- OUTSIDE RECORDS SUMMARY | 2022-05-29 13:32 | XMS_ITS | Encounter Summary ---
:1955 Author Organization [facility] Address [address] [place] [address] Care Team Providers Name Role Phone Alisha [...] Description 06/09/2022 Appointment General Dentistry Elaine Garcia, [facility] [address] [place] [address] (Wo rk) documented as of this encounter Visit Diagnoses Not on filedocumented in this encounter Care Teams Log Handling Equipment Operator Relationship Specialty Start Date End Date Alisha Kimball MD PCP - General 07/08/05 [address] [place], [place] [phone] documented as of this encounter
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
--- OUTSIDE RECORDS SUMMARY | 2022-05-29 13:32 | XMS_ITS | Encounter Summary ---
:1955 Author Organization [facility] Address [address] [place] [address] Care Team Providers Name Role Phone Alisha Kimball MD Primary Care Provider Reason for Visit Reason Comments Ear Pain right ear pain, liquid in ea r Encounter Details Date Type Department Care Team Description 05/19/2017 Office Visit [facility] [place] Kareen Cohen, Diabete s mellitus, type 2 (HRC) (Primary Dx); Practice ISI TONY OME (otitis media with effusion), right; [address] Impacted cerumen of right ear; [place] [address] [place], [place] Encounter for immunization [phone] [id number] Social History Tobacco Use Types Packs/Day Years Used Date Smoking Tobacco: Never Smokeless Tobacco: Never Alcohol Use Standard Drinks/Week Comments No 0 (1 standard drink = 0.6 oz pure alcoho l) Sex Assigned at Date Recorded Not on file documented as of this encounter Last Filed Vital Signs Vital Sign Reading Time Taken Comments Blood Pressure 148/100 05/19/2017 2:27 PM SAFETY ADVISOR Pulse 68 05/19/2017 2:27 PM SAFETY ADVISOR Temperature - - Respiratory Rate - - Oxygen Saturation - - Inhaled Oxygen Concentration - - Weight 83 kg (183 lb) 05/19/2017 2:27 PM SAFETY ADVISOR Height - - Body Mass Index 31.41 04/22/2017 3:56 PM CDT documented in this encounter Patient Instructions Patient InstructionsKareen Cohen, CHAVO, DNP - 05/19/2017 2:20 PM SAFETY ADVISOR Images from the original note were not [...] can you learn more? 1. Go to Stand In/Rabixo or StoreFront.net/G[employer]. 2. Enter S930 in the search box. Current as of: January 31, 2016 Content Version: 11.3 ?? [id number] [email or web address], [employer]. TY ADVISOR documented in this encounter Progress Notes Norma Lainez, ISAIAS - 05/19/2017 3:04 PM CST S: Patient has cerumen impaction. States has been using ear wax softening agent No. O: Cerumen observed in right ear canal(s). A: Patient history has been obtained. Kareen Cohen reviewed history, assessed ears and placed order for ear lavage. P: Right ear lavaged with tap water. some of the cerumen was removed. Norma Lainez CMA 05/19/2017, 3:03 PM TY ADVISOR Kareen Cohen, CHAVO, RADHA - 05/19/2017 2:20 [...] (FLONASE) 50 MCG/ACT nasal solution; Place 1 Anthon into both nostrils daily. decrease to 1 [...] that it can last several weeks. Avoid tnqn-ptdfubjbj-eutzxdstpkcdryb combinations products due to blood pressure. I think the intermittent sharp ear pain might represent a trigeminal neuralgia. If this persists, she should follow up with primary and consider an MRI of the brain. She verbalizes understanding and agrees with plan of care. Kareen Cohen APRN, DNP 05/19/2017, 4:25 PM TY ADVISOR documented in this encounter Plan of Treatment Upcoming Encounters Date Type Specialty Care Team Description 06/09/2022 Appointment General Dentistry Elaine Garcia, [facility] [address] [place], [place] [phone] (Wo rk) documented as of this encounter [...] disease documented in this encounter Care Teams Territory Sales Manager Relationship Specialty Start Date End Date Alisha Kimball MD PCP - General 07/08/05 [address] [place], [place] [phone] documented as of this encounter
--- OUTSIDE RECORDS SUMMARY | 2022-05-29 13:33 | XMS_ITS | Encounter Summary ---
:1955 Author Organization [facility] Address [address] [place] [address] Care Team Providers Name Role Phone Alisha Kimball MD Primary Care Provider Reason for Visit Procedure/Equipment (Routine) - Incomplete Specialty Diagnoses / Procedures Referred By Contact Refer red To Contact Diagnoses Syncope, unspecified syncope type Torey Marcelo MD Procedures NM Card Exercise Rest/Stress Spect [address] [place], [place] [address] Referral ID Status Reason Start Date Expiration Date Visits V isits Requested Authorized [id number] Incomplete 03/04/2017 06/03/2018 6 6 Encounter Details Date Type Department Care Team Description 03/22/2017 [facility] Torey Marcelo, Syncope, unspecified [address] [place]by [place] [address] [facility] [phone] [place] [address] (Wo rk) Social History Tobacco [...] am going to refer you to a tank builder and erector for a consultation also. Torey Marcelo MD 03/23/2017, 12:52 PM documented in this encounter Plan of Treatment Upcoming Encounters Date Type Specialty Care Team Description 06/09/2022 Appointment General Dentistry Radha Elaine Gomez, [facility] [address] [place] [address] (Wo rk) documented as of this encounter [...] prior study available. Roddy Thurston MD, FACC, FASE (Electronically Signed) Final Date: 22 March 2017 11:40 Torey Marcelo MD [place] documented in this encounter Visit Diagnoses Diagnosis Syncope, unspecified syncope type documented in this encounter Care Teams Hydraulic Press In Operator Relationship Specialty Start Date End Date Alisha Kimball MD PCP - General 07/08/05 [address] [place] [address] documented as of this encounter
--- OUTSIDE RECORDS SUMMARY | 2022-05-29 13:33 | XMS_ITS | Encounter Summary ---
:1955 Author Organization [facility] Address [address] [place] [address] Care Team Providers Name Role Phone Alisha Kimball MD Primary Care Provider Reason for Referral Consult/Transfer Care (Routine) - Closed Specialty Diagnoses / Procedures Referred By Contact Refer red To Contact Diagnoses Alisha Hamilton MD [address] [place] [address] Referral ID Status Reason Start Date Expiration Date Visits Requ ested Visits Authorized [id number] Closed 12/07/2016 03/08/2018 1 1 Scheduling Instructions If an appointment with [facility] Fo ot and Ankle Surgery was advised and you have not been contacted to schedule that appo intment within 3 business days, please call [phone] for assistance. We suggest you call your [...] nation without abnormal findings; [address] Elevated liver enzymes; [place] [address] [place] [address] Need for hepatitis C screening test; [phone] Cb (Work) Social History Tobacco Use Types [...] this encounter Patient Instructions Patient InstructionsFrancesca Cho, MONTESSORI LEAD TEACHER - 12/07/2016 8:15 AM CDT Images from [...] can you learn more? 1. Go to Push IO/p3dsystems or G-cluster/Sedimap. 2. Enter Y074 in the search box. Current as of: January 21, 2016 Content Version: 11.2 ?? [id number] [employer], [employer]. Nonalcoholic Steatohepatitis (SMITH): Care Instructions Your Care [...] can you learn more? 1. Go to [employer]/p3dsystems or [employer]-cluster/Sedimap. 2. Enter F761 in the search box. Current as of: February 11, 2016 Content Version: 11.2 ?? [id number] [employer], [employer]. documented in this encounter Progress Notes Alisha [...] HEP C recommended for patients born between 5659-2857 Liver Panel(Hepatic Function Panel) Hepatitis B Surface Antibody HBsAg (Hepatitis B Surface Antigen) ESR SELAM Screen Ceruoplasmin Ferritin Hepatitis A Antibody, IgG 4. Need for hepatitis C screening test Z11.59 HEP C recommended for patients born between 5632-1421 5. Bunion M21.619 Foot & Ankle/Podiatry Consult-Adult/Peds [...] Description 06/09/2022 Appointment General Dentistry Elaine Garcia, [facility] [address] [place], [place] [phone] (Wo rk) Scheduled Referrals Name Type Priority Associated Diagnoses Order S chedule Foot & Ankle/Podiatry Referral Routine Bunion Ordere d: 12/07/2016 Consult-Adult/Peds documented as of this encounter Results (ABNORMAL) Hepatitis A Antibody, IgG (12/07/2016 9:21 AM CDT) [facility] Signature Hepatitis A Negative POSR [facility] Ab, IgG (Non LABORATORIES Reactive) (A) Specimen Anatomical Collection Method Collection Time Receive d Time (Source) Location / / Volume Laterality 12/07/2016 9:21 AM 7 9:22 CDT AM CDT Narrative [facility] - 12/07/2016 5:10 PM C DT Performed at [facility], [address] [place] [address] ??[address] Alisha Kimball MD LAB_1 Performing Organization Address City/State/ZIP Code Phon e Number [facility] [phone] Ferritin (12/07/2016 9:21 AM CDT) athologist Signature Ferritin 114 9 - 204 [facility] ng/ml Specimen Anatomical Collection Method Collection Time Receive d Time (Source) Location / / Volume Laterality 12/07/2016 9:21 AM 7 9:22 CDT AM CDT Narrative [facility] - 12/07/2016 1:54 PM C DT Performed at [facility], [address] [place] [address] ??[address] Alisha Kimball MD LAB_1 Performing Organization Address City/State/ZIP Code Phon e Number [facility] [phone] Ceruoplasmin (12/07/2016 9:21 AM CDT) Component Value Ref Test Analysis Performed At [facility] gist Range Method Time Signature Ceruloplasmin 21 [facility] Reference range: 17 to 54 LABO RATORIES Unit: mg/dL Ceruloplasmin (NOTE) [facility] REFERENCE INTERVAL: Ceruloplasmin LABORATORIES Access complete set of age- and/or gender-specific reference ?? intervals for this test in the [email or web address] Laboratory Partner Cco y ?? (ClearFit). [facility] [place] [address] [email or web address], Sadi Alba MD, Lab. Director Specimen Anatomical Collection Method Collection Time Receive d Time (Source) Location / / Volume Laterality 12/07/2016 9:21 AM 7 9:22 CDT AM CDT Narrative [facility] - 12/08/2016 1:54 PM C DT Performed by [facility], [address] [place] [address] bhavana [place], [place] [address] Alisha Kimball MD LAB_1 Performing Organization Address City/State/ZIP Code Phon e Number [facility] [phone] SELAM Screen (12/07/2016 9:21 AM CDT) athologist Signature SELAM Screen Negative NEG [facility] Specimen Anatomical Collection Method Collection Time Receive d Time (Source) Location / / Volume Laterality 12/07/2016 9:21 AM 7 9:22 CDT AM CDT Narrative [facility] - 12/08/2016 4:48 PM C DT Performed at [facility], [address] [place] [address] ??[address] Alisha Kimball MD LAB_1 Performing Organization Address City/State/ZIP Code Phon e Number [facility] [phone] ESR (12/07/2016 9:21 AM CDT) athologist Signature ESR 6 0 - 20 [facility] mm/hr Specimen Anatomical Collection Method Collection Time Receive d Time (Source) Location / / Volume Laterality 12/07/2016 9:21 AM 7 9:22 CDT AM CDT Narrative [facility] - 12/07/2016 2:59 PM C DT Performed at [address] ??[address] Alisha Kimball MD LAB_1 Performing Organization Address [facility] Code Phon e Number [facility] [phone] HBsAg (Hepatitis B Surface Antigen) (12/07/2016 9:21 AM CDT) [facility] Method Time Signature HBsAg Negative (Non NEGNR [facility] Reactive) LABORATORIES Specimen Anatomical Collection Method Collection Time Receive d Time (Source) Location / / Volume Laterality 12/07/2016 9:21 AM 7 9:22 CDT AM CDT Narrative [facility] - 12/07/2016 5:10 PM C DT Performed at [address] ??[address] Alisha Kimball MD LAB_1 Performing Organization Address [facility] Phon e Number [facility] [phone] (ABNORMAL) Hepatitis B Surface Antibody (12/07/2016 9:21 AM CDT) [facility] Method Time Signature Hep B Surf AB <2.0 [...] 5:11 PM C DT Performed at [address] ??[address] Alisha Kimball MD LAB_1 Performing Organization Address [facility] Phon e Number [facility] [phone] (ABNORMAL) Liver Panel(Hepatic Function Panel) (12/07/2016 9:21 AM CDT) [facility] Method Time Signature Alkaline 85 40 - 150 [...] 1:39 PM C DT Performed at [address] ??[address] Alisha Kimball MD LAB_1 Performing Organization Address City/[facility] Phon e Number [facility] [phone] HEP C recommended for patients born between 7476-1501 (12/07/2016 9:21 AM CDT) [facility] Method Time Signature Anti-HCV Negative (Non NEGNR [facility] Reactive) LABORATORIES Comment: Antibodies to HCV not detected. Does not exclude the possibility of exposure to HCV. Specimen Anatomical Collection Method Collection Time Receive d Time (Source) Location / / Volume Laterality 12/07/2016 9:21 AM 7 9:22 CDT AM CDT Narrative [facility] - 12/07/2016 2:01 PM C DT Performed at [address] ??[address] Alisha Kimball MD LAB_1 Performing Organization Address City/[facility] Phon e Number [facility] [phone] documented in this encounter Visit Diagnoses Diagnosis Diabetes mellitus, type 2 (HRC) - Primar y Type II or unspecified type diabetes dinora litus without mention of complication, not stated as uncontrolled Encounter for routine adult health exami [facility] without abnormal findings Elevated liver enzymes Nonspecific [...] (LDH) documented in this encounter Care Teams Bibliographic Services Specialist Relationship Specialty Start Date End Date Alisha Kimball MD PCP - General 07/08/05 [address] [place] [address] documented as of this encounter
--- OUTSIDE RECORDS SUMMARY | 2022-05-29 13:33 | XMS_ITS | Encounter Summary ---
:1955 Author Organization [facility] Address [address] [place] [address] Care Team Providers Name Role Phone Carroll Avalos MD Primary Care Provider Reason for Visit Reason Comments Refill atorvastatin (LIPITOR) 10 MG tablet [Pharmacy Med Name: ATORVASTATIN 10MG TABS] Encounter Details Date Type Department Care Team Description 01/22/[address] [facility] Refill (atorvastatin [facility] [address] (LIPITOR) 10 [place] [address] [place] [address] [Pharmacy Med Name: [phone] (Wo rk) ATORVASTATIN 10MG TABS]) Social History [...] visit: None Last ordered by CARROLL AVALOS: 02/10/2016 (347 days ago) QTY: 90, Refills: 3, Sig: take one tabletby mouth every day (unchanged) LDL: 82 mg/dL on 12/01/2016 Powered by [employer], Reference: [id number], 01/22/2017 3:19:00 AM CDT, Pool: ARNOLD AMEZQUITA RN ([id number]) Interface, Out YadaHome Query - 01/22/2017 3:19 AM CDT The following lab order(s) may be associated with the Result Note below: LIPID PANEL AND DIRECT LDL(IF NEEDED) Notes Recorded by Carroll Avalos MD on 12/02/2016 at 5:27 PM Will discuss with the patient at her next visit 12/07/2016. Carroll Avalos MD documented in this encounter Plan of Treatment Upcoming Encounters Date Type Specialty Care Team Description 06/09/2022 Appointment General Dentistry Elaine Garcia, [facility] [address] [place] [address] (Wo rk) documented as of this encounter Visit Diagnoses Not on filedocumented in this encounter Care Teams Acetaldehyde Converter Operator Relationship Specialty Start Date End Date Carroll Avalos MD PCP - General 07/08/05 [address] [place] [address] documented as of this encounter
--- OUTSIDE RECORDS SUMMARY | 2022-05-29 13:33 | XMS_ITS | Encounter Summary ---
:1955 Author Organization [facility] Address [address] [place] [address] Care Team Providers Name Role Phone lAisha Kimball MD Primary Care Provider Reason for Visit Reason Comments Follow Up Test Results Event monitor Encounter Details Date Type Department Care Team Description 04/16/2017 Telephone [facility] Alvarado Friedman F ollow Up Test Cardiology MD Results (Event [address] [facility] monitor) [place] [address] [place], [place] [phone] [address] Social History Tobacco Use Types Packs/Day Years Used Date Smoking Tobacco: Never Smokeless Tobacco: Never Alcohol Use Standard Drinks/Week Comments No 0 (1 standard drink = 0.6 oz pure alcoho l) Sex Assigned at Date Recorded Not on file documented as of this encounter Nursing Notes Alisha Mayfield, RN - 04/16/2017 4:54 PM CDT Received fax from [employer], Dr. Friedman reviewed and found Atrial Fib. [...] Dentistry Elaine Garcia, [facility] [address] [place] [address] (Wo rk) documented as of this encounter Visit Diagnoses Diagnosis Heart palpitations - Primary Palpitations PAF (paroxysmal atrial fibrillation) (HR C) Atrial fibrillation documented in this encounter Care Teams Facility Attendant Relationship Specialty Start Date End Date Alisha Kimball MD PCP - General 07/08/05 [address] [place] [address] documented as of this encounter
--- OUTSIDE RECORDS SUMMARY | 2022-05-29 13:33 | XMS_ITS | Encounter Summary ---
:1955 Author Organization [facility] Address [address] [place] [address] Care Team Providers Name Role Phone Ailsha Kimball MD Primary Care Provider Encounter Details Date Type Department Care Team Description 03/25/2017 Orders Only [facility] Torey Marcelo, Cardiac Non-Invasive Lab [address] [place] [address] [place] [address] [place], [place] [phone] (Wo rk) Social History Tobacco Use Types [...] 06/09/2022 Appointment General Dentistry Elaine Garcia, [facility] [address] [place], [place] [phone] (Wo rk) documented as of this encounter Procedures Procedure Name Priority Date/Time Associated Diagnosis Comme nts ORACLE IDENTITY MANAGEMENT CONSULTANT 03/25/2017 12:00 AM Resul ts for this CDT procedure are i n the results section. documented in this encounter Results ORACLE IDENTITY MANAGEMENT CONSULTANT (03/25/2017 12:00 AM CDT) Specimen (Source) Anatomical Location Collection Method / Collectio n Time Received Time / Laterality Volume 03/25/2017 Narrative This result has an attachment that is no t available. Torey Marcelo MD DUMMY/OTHER/AR documented in this encounter Visit Diagnoses Not on filedocumented in this encounter Care Teams Box Spring Maker Relationship Specialty Start Date End Date Alisha Kimball MD PCP - General 07/08/05 [address] [place] [address] documented as of this encounter
--- OUTSIDE RECORDS SUMMARY | 2022-05-29 13:33 | XMS_ITS | Encounter Summary ---
:1955 Author Organization [facility] Address [address] [place] [address] Care Team Providers Name Role Phone Carroll Avalos MD Primary Care Provider Reason for Visit Reason Comments Refill amLODIPine (NORVASC) 5 MG ta blet [Pharmacy Med Name: AMLODIPINE 5MG TAB] Encounter Details Date Type Department Care Team Description 01/22/2017 [facility] Refill (amLODIPine [address] [facility] [address] (NORVASC) 5 [place] [address] [place] [address] [Pharmacy Med Name: [phone] (Wo rk) AMLODIPINE 5MG TAB]) Social History [...] 79 mm Hg on 12/07/2016 Powered by [employer]), Reference: [id number], 01/22/2017 3:19:00 AM CDT, Pool: ARNOLD AMEZQUITA RN ([id number]) documented in this encounter Plan of Treatment Upcoming Encounters Date Type Specialty Care Team Description 06/09/2022 Appointment General Dentistry Elaine Garcia, [facility] [address] [place] [address] (Wo rk) documented as of this encounter Visit Diagnoses Not on filedocumented in this encounter Care Teams Machine Stoppage Frequency Checker Relationship Specialty Start Date End Date Carroll Avalos MD PCP - General 07/08/05 [address] [place], [place] [phone] documented as of this encounter
--- OUTSIDE RECORDS SUMMARY | 2022-05-29 13:33 | XMS_ITS | Encounter Summary ---
:1955 Author Organization [facility] Address [address] [place] [address] Care Team Providers Name Role Phone Alisha Kimball MD Primary Care Provider Reason for Visit Procedure/Equipment (Routine) - Incomplete Specialty Diagnoses / Procedures Referred By Contact Refer red To Contact Diagnoses Syncope, unspecified syncope type Torey Marcelo MD Procedures NM Card Exercise Rest/Stress Spect [address] [place], [place] [address] Referral ID Status Reason Start Date Expiration Date Visits V isits Requested Authorized [id number] Incomplete 03/04/2017 06/03/2018 6 6 Encounter Details Date Type Department Care Team Description 03/22/2017 Office Visit [facility] Torey Marcelo, Cardiac Non-Invasive Lab [address] [place] [address] [place] [address] [place], [place] [phone] [address] (Wo rk) Social History Tobacco Use Types [...] within one week. Please follow up with [facility] if you have not received your [...] Surgical History: Procedure Laterality Date ??? HYSTERECTOMY 1999 menorrhagia ??? OTHER - PROCEDURES 1999 FR[place]ICK [...] will follow up with Dr Marcelo at [facility]. Test done with packaging line attendant present: no 20 gauge IV catheter inserted by NM in the right antecubital. IV site appears: normal with intact catheter. IV D/C'd by:ALLIE Orellana documented in this encounter Plan of Treatment Upcoming Encounters Date Type Specialty Care Team Description 06/09/2022 Appointment General Dentistry Elaine Garcia, [facility] [address] [place] [address] (Wo rk) documented as of this encounter [...] March 2017 11:40 Torey Marcelo MD RAD CO documented in this encounter Visit Diagnoses Not on filedocumented in this encounter Care Teams Correspondence Specialist Relationship Specialty Start Date End Date Alisha Kimball MD PCP - General 07/08/05 [address] [place] [address] documented as of this encounter
--- OUTSIDE RECORDS SUMMARY | 2022-05-29 13:33 | XMS_ITS | Encounter Summary ---
:1955 Author Organization [facility] Address [address] [place] [address] Care Team Providers Name Role Phone Alisha Kimball MD Primary Care Provider Reason for Referral Procedure/Equipment (Routine) - Incomplete Specialty Diagnoses / Procedures Referred By Contact Refer red To Contact Diagnoses Elevated liver enzymes Alisha Kimball MD Procedures [facility] Complete [address] [place] [address] Referral ID Status Reason Start Date Expiration Date Visits V isits Requested Authorized [id number] Incomplete 12/09/2016 03/10/2018 1 1 Reason for Visit Reason Comments LAB RESULTS Encounter Details Date Type Department Care Team Description 12/08/2016 Telephone [facility] Alisha Kimball MD LAB RESULTS [address] [facility]. [address] [place] [address] [place] [address] (Wo rk) Social History Tobacco [...] Patient returning call. Please call back at [phone]. Ok to leave a detailed message. Treasure Romano Alisha Kimball MD - 12/08/2016 5:09 PM CDT Left message to call back. Alisha Kimball MD documented in this encounter Plan of Treatment Upcoming Encounters Date Type Specialty Care Team Description 06/09/2022 Appointment [facility] [address] [place] [address] (Wo rk) documented as of this encounter Results US Abd [...] Small left renal cyst. Alisha Kimball MD [facility] documented in this encounter Visit Diagnoses Diagnosis Elevated liver enzymes - Primary Nonspecific elevation of levels of trans aminase or lactic acid dehydrogenase (LDH) Elevated liver enzymes Nonspecific elevation of levels of trans aminase or lactic acid dehydrogenase (LDH) documented in this encounter Care Teams Machine Staker Relationship Specialty Start Date End Date Alisha Kimball MD PCP - General 07/08/05 [address] [place] [address] documented as of this encounter
--- OUTSIDE RECORDS SUMMARY | 2022-05-29 13:33 | XMS_ITS | Encounter Summary ---
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 [address] [address] [facility] [phone] [place], [place] [id number] Social History Tobacco Use Types Packs/Day Years [...] a couple days ago. A1C- 7.2 11/2016. [id number]? Routine Eye Exam Loc [place] is a [...] Description 06/09/2022 Appointment General Dentistry Elaine Garcia, [facility] [address] [place], [place] [phone] (Wo rk) documented as of this encounter Visit Diagnoses Diagnosis Type 2 diabetes mellitus with right eye affected by mild nonproliferative retinopathy without macular edema, without long-term current use of insulin (HRC) - Primary Presbyopia documented in this encounter Care Teams Tracer Lathe Set Up Operator Relationship Specialty Start Date End Date Alisha Kimball MD PCP - General 07/08/05 [address] [place] [address] documented as of this encounter
--- OUTSIDE RECORDS SUMMARY | 2022-05-29 13:33 | XMS_ITS | Encounter Summary ---
:1955 Author Organization [facility] Address [address] [place] [address] Care Team Providers Name Role Phone Alisha Kimball MD Primary Care Provider Reason for Visit Reason Comments ERRONEOUS ENTRY Encounter Details Date Type Department Care Team Description 03/05/2017 Telephone [facility] Torey Marcelo ERRONEOUS ENTRY [address] [place], [place] [address] Social History Tobacco Use [...] General Dentistry Elaine Garcia, [facility] [address] [place], [place] [phone] (Wo rk) documented as of this encounter Visit Diagnoses Not on filedocumented in this encounter Care Teams Air And Hydronic Balancing Technician Relationship Specialty Start Date End Date Alisha Kimball MD PCP - General 07/08/[address] [place], [place] [id number] documented as of this encounter
--- OUTSIDE RECORDS SUMMARY | 2022-05-29 13:33 | XMS_ITS | Encounter Summary ---
:1955 Author Organization [facility] Address [address], [place] [address] Care Team Providers Name Role Phone Alisha Kimball MD Primary Care Provider Encounter Details Date Type Department Care Team Description 03/04/2017 Notes/Orders [facility] Torey Marcelo Syncope, unspecified syncope type; Practice MD Ian Diabetes mellitus, type 2 ([facility]) [address] [place] [id number] [place] [address] [phone] Social History Tobacco Use Types Packs/Day Years [...] Dentistry Elaine Garcia, [facility] [address] [place] [address] (Wo rk) documented as of this encounter [...] 03/04/2017 3:36 PM C DT Performed at [facility], [address] [place] [address] Torey Marcelo MD LAB_1 Performing Organization Address City/State/ZIP Code Phon e Number [facility] [phone] Basic Metabolic Panel (03/04/2017 9:26 AM CDT) [...] 03/04/2017 3:55 PM C DT Performed at [address] ??[address] Torey Marcelo MD LAB_1 Performing Organization Address City/[facility] Phon e Number [facility] [phone] Complete Blood Count-No Diff (03/04/2017 9:26 AM CDT) P athologist Signature WBC 7.2 4.0 - 11.0 [...] 03/04/2017 4:02 PM C DT Performed at [address] ??[address] Torey Marcelo MD LAB_1 Performing Organization Address City/[facility] Phon e Number [facility] [phone] documented in this encounter Visit Diagnoses Diagnosis Syncope, unspecified syncope type Diabetes mellitus, type 2 (HRC) Type II or unspecified type diabetes dinora litus without mention of complication, not stated as uncontrolled documented in this encounter Care Teams Salad Maker Relationship Specialty Start Date End Date Alisha Kimball MD PCP - General 07/08/05 [address] [place] [address] documented as of this encounter
--- OUTSIDE RECORDS SUMMARY | 2022-05-29 13:33 | XMS_ITS | Encounter Summary ---
:1955 Author Organization [facility] [address] [place] [address] Care Team Providers Name Role Phone Alisha Kimball MD Primary Care Provider Reason for Visit Procedure/Equipment (Routine) - Closed Specialty Diagnoses / Procedures Referred By Contact Refer red To Contact Diagnoses Syncope, [place] [address] [place], [place] [address] Referral ID Status Reason Start Date Expiration Date Visits Requ ested Visits Authorized [id number] Closed 03/04/2017 06/03/2018 1 1 Encounter Details Date Type Department Care Team Description 03/19/2017 Office Visit [facility] Cardiac Non-Invasive Lab [address] [place] [address] Social History Tobacco Use Types Packs/Day Years [...] [facility] [address] [place] [address] (Wo rk) Scheduled Referrals Name Type Priority Associated Diagnoses Order S chedule Holter Monitor Referral Routine Syncope, unspecified synco pe Ordered: 03/04/2017 type documented as of this encounter Visit Diagnoses Not on filedocumented in this encounter Care Teams Rac Specialist Relationship Specialty Start Date End Date Alisha Kimball MD PCP - General 07/08/05 [address] [place] [address] documented as of this encounter
--- OUTSIDE RECORDS SUMMARY | 2022-05-29 13:33 | XMS_ITS | Encounter Summary ---
:1955 Author Organization [facility] Address [address] [place] [address] Care Team Providers Name Role Phone Alisha Kimball MD Primary Care Provider Reason for Referral Procedure/Equipment (Routine) - Incomplete Specialty Diagnoses / Procedures Referred By Contact Refer red To Contact Diagnoses Left foot pain Izaiah Rouse DPM Procedures XR Foot Lt AP/Lat/MO/LO 4Vws [address] [place] [address] Referral ID Status Reason Start Date Expiration Date Visits V isits Requested Authorized [id number] Incomplete 01/22/2017 04/23/2018 1 1 Reason for Visit Consult/Transfer Care (Routine) - Closed Specialty Diagnoses / Procedures Referred By Contact Refer red To Contact Diagnoses Alisha Hamilton MD [address] [address] Referral ID Status Reason Start Date Expiration Date Visits Requ ested Visits Authorized [id number] Closed 12/07/2016 03/08/2018 1 1 Encounter Details Date Type Department Care Team Description 01/22/2017 Office Visit [facility] [place], Ana fo ot pain (Primary Dx); [facility] Izaiah Barker DPM Hallux valgus, left; 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 [address] Social History Tobacco Use Types Packs/Day Years Used Date Smoking Tobacco: Never Smokeless Tobacco: Never Alcohol Use Standard Drinks/Week Comments No 0 (1 standard drink = 0.6 oz pure alcoho l) Sex Assigned at Date Recorded Not on file documented as of this encounter Patient Instructions Patient InstructionsDonatoDorie mccoy MA - 01/22/2017 1:00 PM CDT Thank you for choosing [facility]. If you have any questions or concerns, please contact us at [phone]. For felt metatarsal pads or foam toe separators: www.Chimerix www.Pikum Dr. Os[employer] Renew Fibre catalog www.Complix PediFix www.DrugSupplyStore.Syntonic Wireless Bunion (hallux abducto valgus) A bunion is [...] your condition, please visit these accredited websites: [place] [employer] http://www.acfas.org [place] Podiatric Medical Association http://www.apma.org/ BUNION What is [...] high heels ?? Pain during activities ?? Kimberly in between the big toe and second toe ?? Callous formation on the side or bottom of the big toe or big toe joint ?? Callous under the second toe joint (2nd MTPJ) ?? Pain in the second toe joint Diagnosis/Tests (Exam) Your foot doctor (photocopying equipment mechanic) will ask you questions about the symptoms you are having while examining your foot. You will also probably be asked to stand and walk barefoot to further assess your foot function. The presence of a bunion is usually obvious, but sometimes there is more going on that ariel bunion, so your photocopying equipment mechanic will usually take an x-ray. The photocopying equipment mechanic will measure angles between the bones to [...] procedures to repair bunions. 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
--- OUTSIDE RECORDS SUMMARY | 2022-05-29 13:33 | XMS_ITS | Encounter Summary ---
:1955 Author Organization [facility] Address [address] [place] [address] Care Team Providers Name Role Phone Alisha Kimball MD Primary Care Provider Reason for Visit Procedure/Equipment (Routine) - Incomplete Specialty Diagnoses / Procedures Referred By Contact Refer red To Contact Diagnoses Left foot pain Izaiah Rouse, DPYadira Procedures XR Foot Lt AP/Lat/MO/LO 4Vws [address] [place] [address] Referral ID Status Reason Start Date Expiration Date Visits V isits Requested Authorized [id number] Incomplete 01/22/2017 04/23/2018 1 1 Encounter Details Date Type Department Care Team Description 01/22/2017 [facility] Garry Rouse R, Left foot pain Center [address] Radiology DPM [address] [place] [address] [place] [address] [phone] (Wo rk) Social History Tobacco Use Types [...] Dentistry Elaine Garcia, [facility] [address] [place], [place] [phone] (Wo rk) documented as of this encounter [...] limb documented in this encounter Care Teams Metal Tank Erector Relationship Specialty Start Date End Date Alisha Kimball MD PCP - General 07/08/05 [address] [place] [address] documented as of this encounter
--- OUTSIDE RECORDS SUMMARY | 2022-05-29 13:33 | XMS_ITS | Encounter Summary ---
:1955 Author [facility] Address [address] [place] [address] Care Team Providers Name Role Phone Alisha Kimball MD Primary Care Provider Reason for Referral Consult/Transfer Care (Routine) - Closed Specialty Diagnoses / Procedures Referred By Contact Refer red To Contact Diagnoses Syncope, unspecified [place] [address] [place], [place] [address] Referral ID Status Reason Start Date Expiration Date Visits Requ ested Visits Authorized [id number] Closed 03/23/2017 06/22/2018 1 1 Scheduling Instructions Your provider has recommended an appoint ment with [facility]. You may call [phone] to schedule your appoi ntment. If you prefer, a sign language instructor will contact you within the next 3 business d ays to assist you in setting up this appointment. We suggest you call your [facility] eCert company about your coverage and benefits for this appointment. Encounter Details Date Type Department Care Team Description 03/23/2017 Notes/Orders [facility] Torey Marcelo Syncope, unspecified Practice MD Ian syncope type (Primary [address] [place]x) [place] [address] [phone] Social History Tobacco Use Types Packs/Day Years [...] Elaine Garcia, [facility] [address] [place] [address] (Wo rk) Scheduled Referrals Name Type Priority Associated Diagnoses Order S chedule Cardiology Referral Routine Syncope, unspecified Ordered : 03/23/2017 Consult-Adults syncope type documented as of this encounter Visit Diagnoses Diagnosis Syncope, unspecified syncope type - Prim levy documented in this encounter Care Teams Car Coupler Relationship Specialty Start Date End Date Alisha Kimball MD PCP - General 07/08/05 [address] [place] [address] documented as of this encounter
--- OUTSIDE RECORDS SUMMARY | 2022-05-29 13:33 | XMS_ITS | Encounter Summary ---
:1955 Author Organization [facility] Address [address] [place] [address] Care Team Providers Name Role Phone Alisha Kimball MD Primary Care Provider Encounter Details Date Type Department Care Team Description 12/07/2016 Lab Visit [facility] Need for hepatitis C screeni ng test; [address] [place] [address] Social History Tobacco Use Types [...] General Dentistry Elaine Garcia, [facility] [address] [place] [address] (Wo rk) documented as of [...] A Antibody, IgG (12/07/2016 9:21 AM CDT) [facility] gist Method Time Signature Hepatitis A Negative POSR [facility] Ab, IgG (Non LABORATORIES Reactive) (A) Specimen Anatomical Collection Method Collection Time Receive d Time (Source) Location / / Volume Laterality 12/07/2016 9:21 AM 7 9:22 CDT AM CDT Narrative [facility] - 12/07/2016 5:10 PM C DT Performed at [facility], [address] [place] [address] ??[address] Alisha Kimball MD LAB_1 Performing Organization Address [facility] Phon e Number [facility] [phone] Ferritin (12/07/2016 9:21 AM CDT) athologist Signature Ferritin 114 9 - 204 [facility] ng/ml Specimen Anatomical Collection Method Collection Time Receive d Time (Source) Location / / Volume Laterality 12/07/2016 9:21 AM 7 9:22 CDT AM CDT Narrative [facility] - 12/07/2016 1:54 PM C DT Performed at [facility], [address] [place] [address] ??[address] Alisha Kimball MD LAB_1 Performing Organization Address City/[facility] Phon e Number [facility] [phone] Ceruoplasmin (12/07/2016 9:21 AM CDT) Component Value Ref Test Analysis Performed At [facility] gist Range Method Time Signature Ceruloplasmin 21 [facility] Reference range: 17 to 54 LABFORMERLY [facility] Unit: mg/dL Ceruloplasmin (NOTE) [facility] REFERENCE INTERVAL: Ceruloplasmin LABORATORIES Access complete set of age- and/or gender-specific reference ?? intervals for this test in the [facility] Flexographic Press Plate Setter y ?? ([facility] [place] [facility]). [facility] [place] [address] www.[facility] [place] [facility], Sdai Alba MD, Lab. Director Specimen Anatomical Collection Method Collection Time Receive d Time (Source) Location / / Volume Laterality 12/07/2016 9:21 AM 7 9:22 CDT AM CDT Narrative [facility] - 12/08/2016 1:54 PM C DT Performed by [employer], [facility] Corey bateman [place], [place] [address] Alisha Kimball MD LAB_1 Performing Organization Address City/State/ZIP Code Phon e Number [facility] [phone] SELAM Screen (12/07/2016 9:21 AM CDT) athologist Signature SELAM Screen Negative NEG [facility] Specimen Anatomical Collection Method Collection Time Receive d Time (Source) Location / / Volume Laterality 12/07/2016 9:21 AM 7 9:22 CDT AM CDT Narrative [facility] - 12/08/2016 4:48 PM C DT Performed at [facility], [address] [place] [address] ??[address] Alisha Kimball MD LAB_1 Performing Organization Address City/State/ZIP Code Phon e Number [facility] [phone] ESR (12/07/2016 9:21 AM CDT) athologist Signature ESR 6 0 - 20 [facility] mm/hr Specimen Anatomical Collection Method Collection Time Receive d Time (Source) Location / / Volume Laterality 12/07/2016 9:21 AM 7 9:22 CDT AM CDT Narrative [facility] - 12/07/2016 2:59 PM C DT Performed at [facility], [address] [place] [address] ??[address] Alisha Kimball MD LAB_1 Performing Organization Address [facility] Phon e Number [facility] [facility] [phone] HBsAg (Hepatitis B Surface Antigen) (12/07/2016 9:21 AM CDT) [facility] Time Signature HBsAg Negative (Non NEGNR [facility] Reactive) LABORATORIES Specimen Anatomical Collection Method Collection Time Receive d Time (Source) Location / / Volume Laterality 12/07/2016 9:21 AM 7 9:22 CDT AM CDT Narrative [facility] - 12/07/2016 5:10 PM C DT Performed at [address] ??[address] Alisha Kimball MD LAB_1 Performing Organization Address [facility] Phon e Number [facility] [place] [facility] [phone] (ABNORMAL) Hepatitis B Surface Antibody (12/07/2016 9:21 AM CDT) [facility] Time Signature Hep B Surf AB <2.0 [...] 12/07/2016 5:11 PM C DT Performed at [address] ??[address] Alisha Kimball MD LAB_1 Performing Organization Address [facility] Phon e Number [facility] [place] [facility] [phone] (ABNORMAL) Liver Panel(Hepatic Function Panel) (12/07/2016 9:21 AM CDT) [facility] Method Time Signature Alkaline 85 40 - [...] 12/07/2016 1:39 PM C DT Performed at [address] ??[address] Alisha Kimball MD LAB_1 Performing Organization Address [facility] Phon e Number [facility] [place] [facility] [phone] HEP C recommended for patients born between 7725-2910 (12/07/2016 9:21 AM CDT) [facility] Method Time Signature Anti-HCV Negative (Non NEGNR [facility] Reactive) LABORATORIES Comment: Antibodies to HCV not detected. Does not exclude the possibility of exposure to HCV. Specimen Anatomical Collection Method Collection Time Receive d Time (Source) Location / / Volume Laterality 12/07/2016 9:21 AM 7 9:22 CDT AM CDT Narrative [facility] [place] [facility] - 12/07/2016 2:01 PM C DT Performed at [address] ??[address] Alisha Kimball MD LAB_1 Performing Organization Address City/[facility] Phon e Number [facility] [place] [facility] [phone] documented in this encounter Visit Diagnoses Diagnosis Need for hepatitis C screening test Special screening examination for other specified viral diseases Elevated liver enzymes Nonspecific elevation of levels of trans aminase or lactic acid dehydrogenase (LDH) documented in this encounter Care Teams Station Tender Relationship Specialty Start Date End Date Alisha Kimball MD PCP - General 07/08/05 [address] [place] [address] documented as of this encounter
--- OUTSIDE RECORDS SUMMARY | 2022-05-29 13:33 | XMS_ITS | Encounter Summary ---
:1955 Author Organization [employer] Address [address], [place] [address] Care Team Providers Name Role Phone Alisha Kimball MD Primary Care Provider Reason for Visit Reason Comments RESULTS, TEST Encounter Details Date Type Department Care Team Description 03/23/2017 Telephone [facility] Torey Marcelo MD RESULTS, TEST Practice [address] [facility] [address] [place] [address] [place], [place] [address] [phone] Social History Tobacco Use Types Packs/Day Years [...] was an appt on 03/19 for the music supervisor and she turned it in yesterday. She [...] am going to refer you to a public health informatician for a consultation also. Torey Marcelo MD 03/23/2017, 12:52 PM documented in this encounter Plan of Treatment Upcoming Encounters Date Type Specialty Care Team Description 06/09/2022 Appointment General Dentistry Elaine Garcia, [facility] [address] [place] [address] (Wo rk) documented as of this encounter Visit Diagnoses Not on filedocumented in this encounter Care Teams Informatica Relationship Specialty Start Date End Date Alisha Kimball MD PCP - General 07/08/05 [address] [place], [place] [id number] documented as of this encounter
--- OUTSIDE RECORDS SUMMARY | 2022-05-29 13:33 | XMS_ITS | Encounter Summary ---
:1955 Author Organization [facility] Address [address] [place] [address] Care Team Providers Name Role Phone Alisha Kimball MD Primary Care Provider Reason for Referral Procedure/Equipment (Routine) - Incomplete Specialty Diagnoses / Procedures Referred By Contact Refer red To Contact Diagnoses Snoring Excessive daytime sleepiness Alvarado Friedman MD [address] [place] [address] Referral ID Status Reason Start Date Expiration Date Visits V isits Requested Authorized [id number] Incomplete 03/30/2017 06/29/2018 1 1 Scheduling Instructions [...] next 7 days, please contact us at [phone]. 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 This recommended service may not be cove red by your insurance coverage. We suggest you call your health insurance company a bout your coverage and benefits for this appointment. Procedure/Equipment (Routine) - Closed Specialty Diagnoses / Procedures Referred By Contact Refer red To Contact Diagnoses PAF (paroxysmal atrial fibrillation) ([facility]) Alvarado Friedman MD [address] [place] [address] Referral ID Status Reason Start Date Expiration Date Visits Requ ested Visits Authorized [id number] Closed 03/30/2017 06/29/2018 1 1 Scheduling Instructions Your provider has recommended an appoint ment [facility]. You may call [phone] to schedule your appoi ntment. If you prefer, a bagman/woman will contact you within the next 3 business d ays to assist you in setting up this appointment. We suggest you call your [facility] insurance company about your coverage and benefits for this appointment. Reason for Visit Reason Comments CONSULT Consult/Transfer Care (Routine) - Closed Specialty Diagnoses / Procedures Referred By Contact Refer red To Contact Diagnoses Syncope, unspecified [place] [address] [place], [place] [address] Referral ID Status Reason Start Date Expiration Date Visits Requ ested Visits Authorized [id number] Closed 03/23/2017 06/22/2018 1 1 Encounter Details Date Type Department Care Team Description 03/30/2017 Office Visit [facility] Alvarado Friedman P AF (paroxysmal atrial fibrillation) ([facility]) (Primary Dx); Cardiology Pre-syncope; [address] [place] [address]. [address] [place] [address] Syncope and collapse; [place] [address] [place], [place] Snoring; [phone] [address] Excessive daytime sleepiness Social History Tobacco Use [...] Advanced Care Provider. Thank you for choosing [facility] for your Cardiology care. You may contact us at [facility] at [phone]. After hours, you may contact the Care Line at [phone] or . Learning About Atrial Fibrillation What is atrial fibrillation? Atrial fibrillation (say AY-tree-rosendo mvd-ovpm-REF-shun) is the most common type of irregular [...] can you learn more? 1. Go to OnHand/[employer] or Swap.com / Netcycler/onlinelibrary. 2. Enter L274 in the search box. Current as of: September 30, 2015 Content Version: 11.3 ?? [id number] Live On The Go, [facility]. Apixaban (Eliquis) Taking an anticoagulant to prevent [...] taking apixaban and any other prescription and ikhl-ivy-asfvsfe medications, including herbal supplements and vitamins. In [...] Antimycobacterial--used to treat certain types of infection Rodrigo???s Wort([employer] perforatum) Herbal product--used to help treat depression [...] keep this appointment, please call the [facility] at [phone]. BEFORE THE TEST: You do not need to do anything special to prepare for the test. DURING THE TEST: A development mgr will explain the test to you. An ultrasound transducer and gel will be placed on your chest and pictures will be made. Some tests require the use of a contrast solution. This is given through an intravenous needle (IV) that is placed in your hand or arm. The contrast solution helps the television repairman take better pictures of your heart. AFTER THE EXAM: Your test results will be sent to your physician, who will discuss the results with you. WHERE DO I GO IF MY TEST IS BEING PERFORMED AT [facility]? If this test is performed in the [facility], it is located on the second (main) floor of [facility]. nutritional services director can direct you to the proper area. Coupon And Bond Collection Clerk locations are at the main entrance, at the south entrance and at the north entrance. HOW TO GET TO [facility]: [facility] is located at the intersection of [facility] and [facility], just a few blocks away from the [facility] and the junction of [address]. For automated directions, call . PARKING: The west parking ramp is the most convenient place to park for [facility] appointments. The west [facility] entrance is off of [facility]. To receive a reduction in your parking fee, please ask the Heart human resources receptionist to validate your parking ticket. WHERE DO I GO IF MY TEST IS BEING PERFORMED AT THE [facility]? Call [phone] for directions. HEART MONITORING TECHNIQUES Please remember [...] scanned on a special machine while a geotechnician looks for any changes in heartbeat occurring [...] of need! They can not be applied yfgum-yun-rnrp. They must always be in place so [...] HISTORY: Non smoker FAMILY HISTORY: Dad had AR in 60s pGFA AR at 59 PGMa had CVA in 70s [...] afib. We discussed risks/benefits of anticoagulation using [employer] anticoagulation camille We will likely start apixaban [...] contact me. Alvarado Friedman MD Cardiology Pager [phone] documented in this encounter Plan of Treatment Upcoming Encounters Date Type Specialty Care Team Description 06/09/2022 Appointment General Dentistry Elaine Garcia, [facility] [address] [place], [place] [phone] (Wo rk) Scheduled Referrals Name Type Priority [...] sleepiness documented in this encounter Care Teams Echo Tech Relationship Specialty Start Date End Date Alisha Kimball MD PCP - General 07/08/05 [address] [place] [address] documented as of this encounter
--- OUTSIDE RECORDS SUMMARY | 2022-05-29 13:33 | XMS_ITS | Encounter Summary ---
:1955 Author Organization [employer] Address [address] [place] [address] Care Team Providers Name Role Phone Alisha Kimball MD Primary Care Provider Reason for Referral Procedure/Equipment (Routine) - Closed Specialty Diagnoses / Procedures Referred By Contact Refer red To Contact Diagnoses Sleep disturbance Alvarado Friedman MD [address] [place] [address] Referral ID Status Reason Start Date Expiration Date Visits Requ ested Visits Authorized [id number] Closed 03/30/2017 06/29/2018 1 1 Scheduling Instructions [...] company at a location near the [facility]. At the time you receive your equipment, [...] Description 03/30/2017 Notes/Orders [facility] Alvarado Friedman [facility] Cardiology (Primary Dx) [address] [facility] [address] [place] [address] [place], [place] [phone] [address] Social History Tobacco Use Types Packs/Day Years Used Date Smoking Tobacco: Never Smokeless Tobacco: Never Alcohol Use Standard Drinks/Week Comments No 0 (1 standard drink = 0.6 oz pure alcoho l) Sex Assigned at Date Recorded Not on file documented as of this encounter Plan of Treatment Upcoming Encounters Date Type Specialty Care Team Description 06/09/2022 Appointment General Dentistry Elaine Garcia, [facility] [address] [place], [place] [phone] (Wo rk) Scheduled Referrals Name Type Priority Associated Diagnoses Order S chedule Sleep Study-Split Night Referral Routine Sleep disturbance Ordered: 03/30/2017 documented as of this encounter Visit Diagnoses Diagnosis Sleep disturbance - Primary Sleep disturbance, unspecified documented in this encounter Care Teams Overhead Worker Relationship Specialty Start Date End Date Alisha Kimball MD PCP - General 07/08/05 [address] [place] [address] documented as of this encounter
--- OUTSIDE RECORDS SUMMARY | 2022-05-29 13:33 | XMS_ITS | Encounter Summary ---
:1955 Author Organization [facility] Address [address] [place] [address] Care Team Providers Name Role Phone Alisha Kimball MD Primary Care Provider Encounter Details Date Type Department Care Team Description 03/04/2017 Lab Visit [facility] [address] [place], [place] [address] Social History Tobacco Use [...] Appointment General Dentistry Elaine Garcia, [facility] [address] [place], [place] [phone] (Wo rk) documented as of this encounter Visit Diagnoses Not on filedocumented in this encounter Care Teams Chief Construction Inspector Relationship Specialty Start Date End Date Alisha Kimball MD PCP - General 07/08/[address] [place], [place] [phone] documented as of this encounter
--- OUTSIDE RECORDS SUMMARY | 2022-05-29 13:33 | XMS_ITS | Encounter Summary ---
:1955 Author Organization [facility] Address [address] [place] [address] Care Team Providers Name Role Phone Alisha Kimball MD Primary Care Provider Reason for Referral Procedure/Equipment (Routine) - Incomplete Specialty Diagnoses / Procedures Referred By Contact Refer red To Contact Diagnoses Syncope, unspecified syncope type Torey Norton MD Procedures NM Card Exercise Rest/Stress Spect [id number] [place] [id number] Referral ID Status Reason Start Date Expiration Date Visits V isits Requested Authorized [id number] Incomplete 03/04/2017 06/03/2018 6 6 Procedure/Equipment (Routine) - Closed Specialty Diagnoses / Procedures Referred By Contact Refer red To Contact Diagnoses Syncope, [place] [address] [place], [place] [address] Referral ID Status Reason Start Date Expiration Date Visits Requ ested Visits Authorized [id number] Closed 03/04/2017 06/03/2018 1 1 Scheduling Instructions You will be contacted within a week by amber cárdenas regarding 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 This recommended service may not be cove red by your insurance coverage. We suggest you call your health insurance company a bout your coverage and benefits for this appointment. Reason for Visit Reason Comments LIGHTHEADEDNESS Encounter Details Date Type Department Care Team Description 03/04/2017 Office Visit [facility] Torey Norton Syncope, unspecified syncope type (Primary Dx); Rakesh Sosa MD Diabetes mellitus, type 2 ([facility]) [address] [facility] [address] [place] [address] [phone] Social History Tobacco Use Types Packs/Day Years [...] (primary encounter diagnosis) Plan: ECG 12-LEAD ROUTINE [[id number]], Complete Blood Count-No Diff, Basic Metabolic Panel, [...] General Dentistry Elaine Garcia, [facility] [address] [place] [address] (Wo rk) Scheduled Referrals Name [...] prior study available. ?? Roddy Thurston MD, FACAmber, TONYA (Electronically Signed) Final Date: ?22 March [...] No prior study available. Roddy Thurston MD, FACAmber, TONYA (Electronically Signed) Final Date: 22 March 2017 11:40 Torey Norton MD RAD DE ECG 12-LEAD ROUTINE [[id number]] (03/04/2017 9:40 AM CDT) P athologist Signature Ventricular Rate 75 BPM MUSE RHP Atrial Rate 75 BPM MUSE RHP P-R Interval 150 ms MUSE RHP QRS Duration 86 ms MUSE RHP QT 394 ms MUSE RHP QTc 439 ms MUSE RHP P Kinards 55 degrees MUSE RHP R Kinards 37 degrees MUSE RHP T Kinards 39 degrees MUSE RHP Specimen (Source) Anatomical Collection Method Collection Time Re ceived Time Location / / Volume Laterality 03/04/2017 9:40 AM CDT Narrative MUSE RHP - 03/12/2017 11:27 AM CDT Sinus rhythm with Premature atrial complexes Otherwise normal ECG No previous ECGs available Confirmed by MD NORTON MARVIN G ([id number]), KIARA Nunez ([id number]) on 03/12/2017 11:27:44 AM Procedure Note Torey Norton MD - 03/12/2017Form atting of this note might be different from the original. Sinus rhythm with Premature atrial compl exes Otherwise normal ECG No previous ECGs available Confirmed by MD NOROTN MARVIN G ([id number]), KAIRA Nunez ([id number]) on 03/12/2017 11:27:44 AM Torey Norton MD EKG Performing Organization Address [facility] Code Phon e Number MUSE RHP (ABNORMAL) [...] 03/04/2017 3:36 PM C DT Performed at [facility], [address] [place] [address] ??[phone] Torey Norton MD LAB_1 Performing Organization Address [facility] Phon e Number [facility] [phone] Basic Metabolic Panel (03/04/2017 9:26 AM CDT) [...] 03/04/2017 3:55 PM C DT Performed at [facility], [address] [place] [address] ??[phone] Torey Norton MD LAB_1 Performing Organization Address City/State/ZIP Code Phon e Number [facility] [phone] Complete Blood Count-No Diff (03/04/2017 9:26 AM [...] 03/04/2017 4:02 PM C DT Performed at [facility], [address] [place] [address] ??[phone] Torey Norton MD LAB_1 Performing Organization Address City/State/ZIP Code Phon e Number [facility] [phone] documented in this encounter Visit Diagnoses Diagnosis [...] type documented in this encounter Care Teams Account Director Relationship Specialty Start Date End Date Alisha Kimball MD PCP - General 07/08/05 [address] [place] [address] documented as of this encounter
--- OUTSIDE RECORDS SUMMARY | 2022-05-29 13:33 | XMS_ITS | Encounter Summary ---
:1955 Author Organization [facility] Address [address] [place] [address] Care Team Providers Name Role Phone Alisha Kimball MD Primary Care Provider Reason for Visit Reason Comments Future Appointments Encounter Details Date Type Department Care Team Description 01/28/2017 Telephone [facility] Tesha Maxwell, Future Appointments [address] [facility] Pharm[address] [place], [place] [phone] [address] [facility] [phone] [place], [place] [address] (Wo rk) Social History [...] Dentistry Elaine Garcia, [facility] [address] [place], [place] [phone] (Wo rk) documented as of this encounter Visit Diagnoses Not on filedocumented in this encounter Care Teams Medical Review Coordinator Relationship Specialty Start Date End Date Alisha Kimball MD PCP - General 07/08/05 [address] [place] [address] documented as of this encounter
--- OUTSIDE RECORDS SUMMARY | 2022-05-29 13:33 | XMS_ITS | Encounter Summary ---
:1955 Author Organization [employer] Address [address] [place] [address] Care Team Providers Name Role Phone Alisha Kimball MD Primary Care Provider Reason for Visit Reason Comments Dental Conversion [facility] to [facility] convers ion Encounter Details Date Type Department Care Team Description 12/10/2016 Dental Conversion [place] [facility] ClemyHafsa weinstein Dentistry Conchis S, DMD [address] [place] [address] [place] [address] [place] [address] [phone] Social History Tobacco Use Types Packs/Day Years [...] . Uses Fluoridated toothpaste. Primary water source: [facility], Unfiltered. Additional Notes: b 3xdn f 1-2xd. [...] Dr Alisha Kimball. The patient's medical clinic: [facility]. Current Medication 1: Vitamin Multi. Current [...] Current Medication 10 : Metformin. Current Medication Ykayif67 : 500mg. Current Medication Dhzrouecw67 : Daily. Current Medication 11 : Generic Lipitor. Current Medication Vtmbwnnit79 : Daily. Health History Note Interface, In [...] . Uses Fluoridated toothpaste. Primary water source: [facility], Unfiltered. Additional Notes: b 3xdn f 1-2xd. [...] Dr Alisha Kimball. The patient's medical clinic: [facility]. Current Medication 1: Vitamin Multi. Current [...] . Uses Fluoridated toothpaste. Primary water source: [facility], Unfiltered. Additional Notes: b 3xdn f 1-2xd. [...] Dr Alisha Kimball. The patient's medical clinic: [facility]. Current Medication 1: Vitamin Multi. Current Medication 2: Vitamin D. Current Medication 3: Fiber Pill. Current Medication 4: Baby Aspirin. Current Medication 5 : Fish Oil Occasionally. Current Medication 6 : Chromium. 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 Her name is Melia Velasco (#[id number]). Our concern is that she continues to [...] Edr Dental Conversion - 08/19/2011 12:00 AM PRODUCT CRAFTSMAN 08/19/2011: Address Updated: Phone number updated. sg UCT CRAFTSMAN documented in this encounter Plan of Treatment Upcoming Encounters Date Type Specialty Care Team Description 06/09/2022 Appointment General Dentistry Elaine Garcia, [facility] [address] [place], [place] [phone] (Wo rk) documented as of this encounter Visit Diagnoses Not on filedocumented in this encounter Care Teams Natural Gas Engineer Relationship Specialty Start Date End Date Alisha Kimball MD PCP - General 07/08/05 [address] [place] [address] documented as of this encounter
--- OUTSIDE RECORDS SUMMARY | 2022-05-29 13:33 | XMS_ITS | Encounter Summary ---
:1955 Author Organization [facility] Address [address], [place] [address] Care Team Providers Name Role Phone Alisha Kimball MD Primary Care Provider Reason for Visit Reason Onset Date Comments ERRONEOUS ENTRY 01/22/2017 sheba pérez Encounter Details Date Type Department Care Team Description 01/22/2017 Refill [facility] Alisha Kimball MD ERRONEOUS ENTRY Practice [address] (sheba pérez) [address] [place] [address] [place], [place] [phone] Social History Tobacco Use Types Packs/Day Years Used Date Smoking Tobacco: Never Smokeless Tobacco: Never Alcohol Use Standard Drinks/Week Comments No 0 (1 standard drink = 0.6 oz pure alcoho l) Sex Assigned at Date Recorded Not on file documented as of this encounter Plan of Treatment Upcoming Encounters Date Type Specialty Care Team Description 06/09/2022 Appointment General Dentistry Elaine Garcia, [facility] [address] [place] [address] (Wo rk) documented as of this encounter Visit Diagnoses Not on filedocumented in this encounter Care Teams Needle Polisher Relationship Specialty Start Date End Date Alisha Kimball MD PCP - General 07/08/[address] [place], [place] [phone] documented as of this encounter
--- OUTSIDE RECORDS SUMMARY | 2022-05-29 13:33 | XMS_ITS | Encounter Summary ---
:1955 Author Organization [facility] Address [address] [place] [address] Care Team Providers Name Role Phone Alisha Kimball MD Primary Care Provider Reason for Referral Procedure/Equipment (Routine) - Incomplete Specialty Diagnoses / Procedures Referred By Contact Refer red To Contact Procedures Alisha Kimball MD MM Mammogram Screening [facility] [address] [place] [address] Referral ID Status Reason Start Date Expiration Date Visits V isits Requested Authorized [id number] Incomplete 01/18/2017 04/19/2018 1 1 Reason for Visit Procedure/Equipment (Routine) - Incomplete Specialty Diagnoses / Procedures Referred By Contact Refer red To Contact Procedures Alisha Kimball MD MM Mammogram Screening [facility] [address] [place] [address] Referral ID Status Reason Start Date Expiration Date Visits V isits Requested Authorized [id number] Incomplete 01/18/2017 04/19/2018 1 1 Encounter Details Date Type Department Care Team Description 01/18/2017 Imaging [facility] ury Mammography [address] [place] [address] Social History Tobacco Use Types [...] Appointment General Dentistry Radha Elaine te Yadira, [facility] [address] [place] [address] (Wo rk) documented as of this encounter [...] filedocumented in this encounter Care Teams Certified Industrial Hygienist Relationship Specialty Start Date End Date Alisha Kimball MD PCP - General 07/08/[address] [place] [address] documented as of this encounter
--- OUTSIDE RECORDS SUMMARY | 2022-05-29 13:33 | XMS_ITS | Encounter Summary ---
:1955 Author Organization [facility] Address [address] [place] [address] Care Team Providers Name Role Phone Alisha Kimball MD Primary Care Provider Reason for Visit Procedure/Equipment (Routine) - Closed Specialty Diagnoses / Procedures Referred By Contact Refer red To Contact Diagnoses PAF (paroxysmal atrial fibrillation) (HRC) Alvarado Friedman MD [address] [place] [address] Referral ID Status Reason Start Date Expiration Date Visits Requ ested Visits Authorized [id number] Closed 03/30/2017 06/29/2018 1 1 Encounter Details Date Type Department Care Team Description 04/22/2017 Office Visit [facility] atrial Cardiac Non-Invasive Lab fibrillation (HRC) [address] [facility] (Primary Dx) [place], [place] [phone] Social History Tobacco Use Types Packs/Day Years Used Date Smoking Tobacco: Never Smokeless Tobacco: Never Alcohol Use Standard Drinks/Week Comments No 0 (1 standard drink = 0.6 oz pure alcoho l) Sex Assigned at Date Recorded Not on file documented as of this encounter Patient Instructions Patient InstructionsMerna Hawthorne Yu - 04/22/2017 10:00 AM CDT You had [...] Description 06/09/2022 Appointment General Dentistry Elaine Garcia, [facility] [address] [place] [address] (Wo rk) documented as of this encounter [...] AM CDT Alvarado Friedman MD [facility] Performing Organization Address City/State/ZIP Code Phon e Number [facility] [address] [place] [address] CARDIAC ROUTINE ECHOCARDIOGRAM (04/22/2017 10:16 AM CDT) [...] (Electronically Signed) Final Date:22 April 2017 15:38 Alavrado Friedman MD [facility]/RH Performing Organization Address City/State/ZIP Code Phon e Number [facility] [address] [place] [address] documented in this encounter Visit Diagnoses Diagnosis Paroxysmal atrial fibrillation (HRC) - P rimary Atrial fibrillation documented in this encounter Care Teams Mold Engraver Relationship Specialty Start Date End Date Alisha Kimball MD PCP - General 07/08/05 [address] [place] [address] documented as of this encounter
--- OUTSIDE RECORDS SUMMARY | 2022-05-29 13:33 | XMS_ITS | Encounter Summary ---
:1955 Author Organization On license of [facility] Address [address] [place] [address] Care Team Providers Name Role Phone Alisha Kimball MD Primary Care Provider Reason for Visit Procedure/Equipment (Routine) - Incomplete Specialty Diagnoses / Procedures Referred By Contact Refer red To Contact Diagnoses Elevated liver enzymes Alisha Kimball MD Procedures [facility] Complete [address] [place] [address] Referral ID Status Reason Start Date Expiration Date Visits V isits Requested Authorized [id number] Incomplete 12/09/2016 03/10/2018 1 1 Encounter Details Date Type Department Care Team Description 12/17/2016 Imaging On license of [facility] Specialty Alisha Kimball, Elevated liver enzymes Center Ultrasound [address] [place] [address] [place], [place] [phone] Social History Tobacco Use Types Packs/Day Years [...] Elaine Garcia, [facility] [address] [place], [place] [phone] (Wo rk) documented as of this encounter [...] Small left renal cyst. Alisha Kimball MD [facility] documented in this encounter Visit Diagnoses Diagnosis Elevated liver enzymes Nonspecific elevation of levels of trans aminase or lactic acid dehydrogenase (LDH) documented in this encounter Care Teams Solutions Market Consultant Relationship Specialty Start Date End Date Alisha Kimball MD PCP - General 07/08/05 [address] [place] [address] documented as of this encounter
--- OUTSIDE RECORDS SUMMARY | 2022-05-29 13:34 | XMS_ITS | Encounter Summary ---
:1955 Author Organization [facility] Address [address], [place] [address] Care Team Providers Name Role Phone Alisha Kimball MD Primary Care Provider Reason for Visit Reason Onset Date Comments Refill 11/13/2015 Encounter Details Date Type Department Care Team Description 11/13/2015 Refill [facility] Tesha Maxwell PharmD [facility] [address] [facility] [address] [place] [address] [place], [place] [phone] (Wo rk) Social History Tobacco Use Types Packs/Day Years Used Date Smoking Tobacco: Never Smokeless Tobacco: Never Alcohol Use Standard Drinks/Week Comments No 0 (1 standard drink = 0.6 oz pure alcoho l) Sex Assigned at Date Recorded Not on file documented as of this encounter Nursing Notes Tesha Maxwell PharmD - 11/13/2015 7:34 AM CDT per CPA refill for metformin sent to [facility] pharmacy. Tesha Maxwell PharmD 11/13/2015, 7:35 AM documented in this encounter Plan of Treatment Upcoming Encounters Date Type Specialty Care Team Description 06/09/2022 Appointment General Dentistry Elaine Garcia, [facility] [address] [place] [address] (Wo rk) documented as of this encounter Visit Diagnoses Diagnosis Diabetes mellitus, type 2 (HRC) - Primar y Type II or unspecified type diabetes dinora litus without mention of complication, not stated as uncontrolled documented in this encounter Care Teams Bias Machine Operator Helper Relationship Specialty Start Date End Date Alisha Kimball MD PCP - General 07/08/05 [address] [place] [address] documented as of this encounter
--- OUTSIDE RECORDS SUMMARY | 2022-05-29 13:34 | XMS_ITS | Encounter Summary ---
:1955 Author Organization [facility] Address [address], [place] [address] Care Team Providers Name Role Phone Alisha Kimball MD Primary Care Provider Reason for Visit Reason Comments PHARMACIST COUNSELING diabetes Encounter Details Date Type Department Care Team Description 02/10/2016 Pharmacy [facility], Ho on PHARMACIST COUNSELING Pharmacy [address] [facility] (diabetes) [address] [place], [place] [address] [phone] (Wo rk) Social History Tobacco Use Types [...] ALISON BECKER 02/12/2016, 3:59 PM Brenton Pickard [facility] - 02/10/2016 10:42 AM CDT Topic / Disease State: Diabetes: Clinic Pharmacy Diabetes Encounter Notes Loc Velasco was at [facility] to speak with the pharmacist [...] twocopies of the Rx Diabetes Report Card ([id number]). One copy will be provided to the patient and the second copy will be used to complete Epic documentation after patient consultation occurs. Patient at Goal? Yes. Please document using .rphdoc after speaking with the patient. documented in this encounter Plan of Treatment Upcoming Encounters Date Type Specialty Care Team Description 06/09/2022 Appointment General Dentistry Elaine Garcia, [facility] [address] [place], [place] [phone] (Wo rk) documented as of this encounter Visit Diagnoses Not on filedocumented in this encounter Care Teams Roll Forming Machine Set Up Operator Relationship Specialty Start Date End Date Alisha Kimball MD PCP - General 07/08/05 [address], [place] [phone] documented as of this encounter
--- OUTSIDE RECORDS SUMMARY | 2022-05-29 13:34 | XMS_ITS | Encounter Summary ---
:1955 Author Organization [facility] Address [address] [place] [address] Care Team Providers Name Role Phone Alisha Kimball MD Primary Care Provider Reason for Visit Reason Comments MEDICATION THERAPY MANAGEMENT Encounter Details Date Type Department Care Team Description 10/22/2016 Office Visit [facility] Tesha Maxwell, Essential hypertension (Prim levy Dx); [address] [facility] PharmD Diabetes mellitus, type 2 (HRC); [place], [place] [address] Hypercholeste rolemia [address] [facility] [phone] [place] [address] Social History Tobacco Use Types [...] you have questions. Thanks, Tesha Maxwell PharmD [facility] on Wednesday & Wednesday [facility] on & Wednesday documented in this [...] sooner if questions or concerns arise. Updated [email or web address] list and reviewed medications including indications with [...] Elaine Garcia, [facility] [address] [place] [address] (Wo rk) documented as of this encounter Visit Diagnoses Diagnosis Essential hypertension (HRC) - Primary Unspecified essential hypertension Diabetes mellitus, type 2 (HRC) Type II or unspecified type diabetes dinora litus without mention of complication, not stated as uncontrolled Hypercholesterolemia Pure hypercholesterolemia documented in this encounter Care Teams Manager Combination Relationship Specialty Start Date End Date Alisha Kimball MD PCP - General 07/08/05 [address] [place], [place] [phone] documented as of this encounter
--- OUTSIDE RECORDS SUMMARY | 2022-05-29 13:34 | XMS_ITS | Encounter Summary ---
:1955 Author Organization [employer] Address [address] [place] [address] Care Team Providers Name Role Phone Alisha Kimball MD Primary Care Provider Reason for Visit Reason Comments HTN MANAGEMENT AND EDUCATION Encounter Details Date Type Department Care Team Description 09/12/2015 Office Visit [facility] Tesha Maxwell, Essential hypertension (Prim levy Dx); [address] [facility] PharmD Diabetes mellitus, type 2 (HRC) [place] [address] [address] [facility] [phone] [place], [place] [address] Social History Tobacco Use Types Packs/Day Years Used Date Smoking Tobacco: Never Smokeless Tobacco: Never Alcohol Use Standard Drinks/Week Comments No 0 (1 standard drink = 0.6 oz pure alcoho l) Sex Assigned at Date Recorded Not on file documented as of this encounter Last Filed Vital Signs Vital Sign Reading Time Taken Comments Blood Pressure 132/94 09/12/2015 7:53 AM PAD MACHINE FEEDER Pulse 75 09/12/2015 7:53 AM PAD MACHINE FEEDER Temperature - - Respiratory Rate - - [...] have questions. Thanks, Tesha Maxwell PharmD [facility] on Wednesday & Wednesday [facility] on & Wednesday MACHINE FEEDER documented in this encounter Progress Notes Tesha Maxwell PharmD - 09/12/2015 7:31 AM CST S Loc Velasco is a 60 y.o. old [...] scheduled for October 09 at 8:00am Updated [employer] med list and reviewed medications including indications with patient. Total time spent with patient 30 minutes. Tesha Maxwell PharmD Clinical Pharmacist Medication Therapy Management Program MACHINE FEEDER documented in this encounter Plan of Treatment Upcoming Encounters Date Type Specialty Care Team Description 06/09/2022 Appointment General Dentistry Elaine Garcia, [facility] [address] [place], [place] [phone] (Wo rk) documented as of this encounter Visit Diagnoses Diagnosis Essential hypertension (HRC) - Primary Unspecified essential hypertension Diabetes mellitus, type 2 (HRC) Type II or unspecified type diabetes dinora litus without mention of complication, not stated as uncontrolled documented in this encounter Care Teams Power Bender Operator Relationship Specialty Start Date End Date Alisha Kimball MD PCP - General 07/08/05 [address] [place], [place] [phone] documented as of this encounter
--- OUTSIDE RECORDS SUMMARY | 2022-05-29 13:34 | XMS_ITS | Encounter Summary ---
:1955 Author Organization [employer] Address [address] [place] [address] Care Team Providers Name Role Phone Alisha Kimball MD Primary Care Provider Reason for Visit Reason Comments MEDICATION THERAPY MANAGEMENT Encounter Details Date Type Department Care Team Description 03/12/2016 Office Visit [facility] Tesha Maxwell, Diabetes mellitus, type 2 (H RC) (Primary Dx); [address] [facility] PharmD Essential hypertension; [place], [place] [address] Hypercholeste rolemia (HRC) [address] [facility] [phone] [place] [address] Social History Tobacco Use Types [...] Patient Instructions Patient InstructionsPeTesha wallace PharmD - 03/12/2016 7:26 AM CDT 1) Increase to amlodipine 5mg 1.5 tabs daily. 2) Monitor for swelling. Please let me know if swelling returns. 3) Your follow-up blood pressure check is scheduled for April 09 at 8:00am. Please call me or e-mail if you have questions. Thanks, Tesha Maxwell PharmD [facility] on Wednesday & Wednesday [facility] on & Wednesday documented in this encounter Progress Notes Tesha Maxwell PharmD - 03/12/2016 7:25 AM CDT S Loc Velasco is a [...] scheduled for April 09 at 8:00am. Updated vivit list and reviewed medications including indications with patient. Total time spent with patient 15 minutes. Tesha Maxwell PharmD Clinical Pharmacist Medication Therapy Management Program documented in this encounter Plan of Treatment Upcoming Encounters Date Type Specialty Care Team Description 06/09/2022 Appointment General Dentistry Elaine Garcia, [facility] [address] [place], [place] [phone] (Wo rk) documented as of this encounter Visit Diagnoses Diagnosis Diabetes mellitus, type 2 (HRC) - Primar y Type II or unspecified type diabetes dinora litus without mention of complication, not stated as uncontrolled Essential hypertension (HRC) Unspecified essential hypertension Hypercholesterolemia Pure hypercholesterolemia documented in this encounter Care Teams Steam Conditioner Operator Relationship Specialty Start Date End Date Alisha Kimball MD PCP - General 07/08/[address] [place] [address] documented as of this encounter
--- OUTSIDE RECORDS SUMMARY | 2022-05-29 13:34 | XMS_ITS | Encounter Summary ---
:1955 Author Organization [employer] Address [address] [place] [address] Care Team Providers Name Role Phone Carroll Kimball MD Primary Care Provider Encounter Details Date Type Department Care Team Description 03/06/2016 Lab Visit [facility] Diabetes mellitus, type 2 205 [facility]) [place], [place] [phone] Social History Tobacco Use Types Packs/Day Years [...] [facility] [address] [place], [place] [phone] (Wo rk) documented as of this encounter Procedures Procedure Name Priority Date/Time Associated Diagnosis Comme nts HGB A1C Routine 03/06/2016 7:31 AM Diabetes mellitus, Res ults for this CDT type 2 ([facility]) procedure are i [...] AM 6 7:32 CDT AM CDT Narrative [facility] - 03/06/2016 12:43 PM CDT Performed at [facility], [address] [place] [address] ??[phone] Carroll Kimball MD LAB_1 Performing Organization Address City/State/ZIP Code Phon e Number [facility] [phone] documented in this encounter Visit Diagnoses Diagnosis Diabetes mellitus, type 2 (HRC) Type II or unspecified type diabetes dinora litus without mention of complication, not stated as uncontrolled documented in this encounter Care Teams Technician Plant And Maintenance Relationship Specialty Start Date End Date Carroll Kimball MD PCP - General 07/08/05 [address] [place] [address] documented as of this encounter
--- OUTSIDE RECORDS SUMMARY | 2022-05-29 13:34 | XMS_ITS | Encounter Summary ---
:1955 Author Organization [employer] Address [address] [address] Care Team Providers Name Role Phone Alisha Kimball MD Primary Care Provider Reason for Visit Reason Comments Disease Registry diabetes Encounter Details Date Type Department Care Team Description 05/22/2016 Telephone [facility] Alisha Kimball MD Disease Registry Practice [address] (diabetes) [address] [place] [address] [place], [place] [phone] Social History Tobacco Use Types Packs/Day Years Used Date Smoking Tobacco: Never Smokeless Tobacco: Never Alcohol Use Standard Drinks/Week Comments No 0 (1 standard drink = 0.6 oz pure alcoho l) Sex Assigned at Date Recorded Not on file documented as of this encounter Nursing Notes Tara Ricketts - 05/29/2016 12:11 PM CST Patient scheduled for 06/04/16 [employer] Tara Ricketts - 05/22/2016 2:25 PM CST [facility] to schedule. [employer] Francesca Cho CMA - 05/22/2016 2:01 PM [...] BP Check Francesca Cho 05/22/2016, 2:01 PM [employer] documented in this encounter Plan of Treatment Upcoming Encounters Date Type Specialty Care Team Description 06/09/2022 Appointment General Dentistry Elaine Garcia, [facility] [address] [place] [address] (Wo rk) documented as of this encounter Visit Diagnoses Not on filedocumented in this encounter Care Teams Tray Checker Relationship Specialty Start Date End Date Alisha Kimball MD PCP - General 07/08/05 [address] [place] [address] documented as of this encounter
--- OUTSIDE RECORDS SUMMARY | 2022-05-29 13:34 | XMS_ITS | Encounter Summary ---
:1955 Author Organization [facility] Address [address] [place] [address] Care Team Providers Name Role Phone Alisha Kimball MD Primary Care Provider Reason for Visit Reason Comments FALL ARM PAIN SHOULDER PAIN Encounter Details Date Type Department Care Team Description 02/16/2016 Nurse Triage Careline Unknown, FALL; ARM PAIN; [address] Physician SHOULDER PAIN [place], [place] [address] [phone] [place], [place] [address] Social History Tobacco Use Types Packs/Day Years Used Date Smoking Tobacco: Never Smokeless Tobacco: Never Alcohol Use Standard Drinks/Week Comments No 0 (1 standard drink = 0.6 oz pure alcoho l) Sex Assigned at Date Recorded Not on file documented as of this encounter Nursing Notes Sonali Houston RN - 02/16/2016 4:32 PM CDT Protocol: SHOULDER [id number] Affirmative: Looks like a dislocated joint Disposition of Go To ED Now suggested. 1. MECHANISM: How did the injury happen? Response: fell on sidewalk Feels weak 2. ONSET: When did the injury happen? (Minutes or hours ago) Response: [id number] 3. APPEARANCE of INJURY: What does the [...] clinic is the patient normally seen at? [facility]. Situation: Medical:Fell while walking today and injured her arm and shoulder. Does she need to be seen? Plan:A nurse will return your call. If your symptoms change for the worse, please call us back [phone].. documented in this encounter Plan of Treatment Upcoming Encounters Date Type Specialty Care Team Description 06/09/2022 Appointment General Dentistry Elaine Garcia, [facility] [address] [place] [address] (Wo rk) documented as of this encounter Visit Diagnoses Not on filedocumented in this encounter Care Teams Strain Technician Relationship Specialty Start Date End Date Alisha Kimball MD PCP - General 07/08/05 [address] [place] [address] documented as of this encounter
--- OUTSIDE RECORDS SUMMARY | 2022-05-29 13:34 | XMS_ITS | Encounter Summary ---
:1955 Author Organization [employer] Address [address] [place] [address] Care Team Providers Name Role Phone Alisha Kimball MD Primary Care Provider Reason for Visit Reason Comments HTN MANAGEMENT AND EDUCATION Encounter Details Date Type Department Care Team Description 05/07/2016 Office Visit [facility] Tesha Maxwell, Essential hypertension (Prim levy Dx); 205 [facility] PharmD Diabetes mellitus, type 2 (HRC) [place] [address] [address] [facility] [phone] [place], [place] [address] Social History Tobacco Use [...] you have questions. Thanks, Tesha Maxwell PharmD [facility] on Wednesday & Wednesday [facility] on & Wednesday documented in this [...] by mouth daily. New RX sent to [facility]. 2) Patient to have potassium and kidney [...] were answered. 5) Follow-up appointment scheduled for June 04 at 8:00am. Updated [place] med list and reviewed medications including indications with patient. Total time spent with patient 15 minutes. Tesha Maxwell PharmD Clinical Pharmacist Medication Therapy Management Program documented in this encounter Plan of Treatment Upcoming Encounters Date Type Specialty Care Team Description 06/09/2022 Appointment General Dentistry Elaine Garcia, [facility] [address] [place] [address] (Wo rk) documented as of this encounter Results Creatinine / GFR (06/15/2016 4:28 PM MORTARMAN) Analysis Performed At Patho logist Time Signature Creatinine 0.92 0.55 - [facility] 1.02 mg/dl [facility] GFR, Estimated >60 >60 [facility] ml/min/1.7 [facility]ATORIES 3m2 GFR, Est., If >60 >60 [facility] Black ml/min/1.7 LABORATORIES 3m2 Specimen Anatomical Collection Method Collection Time Receive d Time (Source) Location / / Volume Laterality 06/15/2016 4:28 PM 6 4:29 MORTARMAN PM MORTARMAN Narrative [facility] - 06/15/2016 6:[address] Performed at [facility], [address] [place] [address] ??[phone] Alisha Kimball MD LAB_1 Performing Organization Address City/[facility] Phon e Number [facility] [phone] Potassium (06/15/2016 4:28 PM MORTARMAN) P athologist Signature Potassium 4.2 3.5 - 5.1 [facility] mmol/L Specimen Anatomical Collection Method Collection Time Receive d Time (Source) Location / / Volume Laterality 06/15/2016 4:28 PM 6 4:29 MORTARMAN PM MORTARMAN Narrative [facility] - 06/15/2016 6:[address] Performed at [facility], [address] [place] [address] ??[id number] Alisha Kimball MD LAB_1 Performing Organization Address City/[facility] Phon e Number [facility] [phone] documented in this encounter Visit Diagnoses Diagnosis Essential hypertension (HRC) - Primary Unspecified essential hypertension Diabetes mellitus, type 2 (HRC) Type II or unspecified type diabetes dinora litus without mention of complication, not stated as uncontrolled Essential hypertension (HRC) Unspecified essential hypertension documented in this encounter Care Teams Police Communications Operator Relationship Specialty Start Date End Date Alisha Kimball MD PCP - General 07/08/05 [address] [place] [address] documented as of this encounter
--- OUTSIDE RECORDS SUMMARY | 2022-05-29 13:34 | XMS_ITS | Encounter Summary ---
:1955 Author Organization [facility] Address [address] [place] [address] Care Team Providers Name Role Phone Alisha Kimball MD Primary Care Provider Encounter Details Date Type Department Care Team Description 11/16/2016 Refill Order [facility] Alisha Kimball MD [address] [facility]. [address] [place] [address] [place], [place] [phone] (Wo rk) Social History Tobacco Use Types [...] Appointment General Dentistry Elaine Garcia, [facility] [address] [place], [place] [phone] (Wo rk) documented as of this encounter Results Sodium (12/01/2016 7:14 AM CDT) P athologist Signature Sodium 140 136 - 145 [facility] mmol/L Specimen Anatomical Collection Method Collection Time Receive d Time (Source) Location / / Volume Laterality 12/01/2016 7:14 AM 7 7:16 CDT AM CDT Narrative [facility] - 12/01/2016 1:01 PM C DT Performed at [facility], [address] [place] [address] ??[phone] Alisha Kimball MD LAB_1 Performing Organization Address City/State/ZIP Code Phon e Number [facility] [phone] documented in this encounter Visit Diagnoses Diagnosis [...] disorder documented in this encounter Care Teams Pinball Machine Repairer Relationship Specialty Start Date End Date Alisha Kimball MD PCP - General 07/08/05 [address] [place] [address] documented as of this encounter
--- OUTSIDE RECORDS SUMMARY | 2022-05-29 13:34 | XMS_ITS | Encounter Summary ---
:1955 Author Organization [facility] Address [address] [place] [address] Care Team Providers Name Role Phone Alisha Kimball MD Primary Care Provider Reason for Referral Procedure/Equipment (Routine) - Incomplete Specialty Diagnoses / Procedures Referred By Contact Refer red To Contact Procedures Alisha Kimball MD MM Mammogram Screening [facility] [address] [place] [address] Referral ID Status Reason Start Date Expiration Date Visits V isits Requested Authorized [id number] Incomplete 01/08/2016 04/08/2017 1 1 Reason for Visit Procedure/Equipment (Routine) - Incomplete Specialty Diagnoses / Procedures Referred By Contact Refer red To Contact Procedures Alisha Kimball MD MM Mammogram Screening [place] [address] [place] [address] Referral ID Status Reason Start Date Expiration Date Visits V isits Requested Authorized [id number] Incomplete 01/08/2016 04/08/2017 1 1 Encounter Details Date Type Department Care Team Description 01/08/2016 Imaging [facility] ury Mammography [address] [place] [address] Social History Tobacco Use Types [...] 06/09/2022 Appointment General Dentistry Radha Elaine Gomez, [facility] [address] [place] [address] (Wo rk) documented as of this encounter [...] on filedocumented in this encounter Care Teams Turntable Worker Relationship Specialty Start Date End Date Alisha Kimball MD PCP - General 07/08/05 [address] [place] [address] documented as of this encounter
--- OUTSIDE RECORDS SUMMARY | 2022-05-29 13:34 | XMS_ITS | Encounter Summary ---
:1955 Author Organization [facility] Address [address] [place] [address] Care Team Providers Name Role Phone Alisha Kimball MD Primary Care Provider Reason for Visit Procedure/Equipment (Routine) - Closed Specialty Diagnoses / Procedures Referred By Contact Refer red To Contact Diagnoses Encounter for screening for malignant neoplasm of colon Alisha Kimball MD [address] [place] [address] Referral ID Status Reason Start Date Expiration Date Visits Requ ested Visits Authorized [id number] Closed 12/09/2015 03/09/2017 1 1 Encounter Details Date Type Department Care Team Description 04/01/2016 Procedure Visit [facility] Jean Claude Chauhan, [facility] [address] [place] [address] [place], [place] [phone] [address] Social History Tobacco Use Types Packs/Day [...] Where can you learn more? Go to [employer] and enter C571 in the search box. Current as of: May 24, 2015 Content Version: 108 ?? [phone] [employer]. Learning About Diverticulosis and Diverticulitis What are [...] Where can you learn more? Go to [employer] and enter E426 in the search box. Current as of: May 24, 2015 Content Version: 108 ?? [phone] [employer] documented in this encounter Progress Notes Jean [...] Elaine Garcia, [facility] [address] [place] [address] (Wo rk) documented as of this encounter [...] . documented in this encounter Results COLONOSCOPY [[id number]] (04/01/2016 8:03 AM CDT) Specimen (Source) Anatomical Collection Method Collection Time Re ceived Time Location / / Volume Laterality 04/01/2016 8:03 AM CDT Narrative [facility]) - 04/01/2016 8:31 AM CDT Instrument Name: 181 Indications: ? Screening for c olorectal malignant neoplasm Providers: ? Jean Claude Hanna i, Rosi Lauren LPN, Ivelisse Wood ? CAITLYN Palmer Referring MD: ?Yadira Cutler [...] area. Mental Status Examination: alert ? and jaswant conroy. Airway Examination: normal ? oropharyn geal [...] direct vision. Prior to sedation, ? patient i dentity and procedure was reverified. ? Throughou [...] ? retrieved . Recommendation: ?- [facility] ? - Await P ath results. I will contact with letter in ? 1-2 weeks . ? - High fi lakshmi diet. Procedure Code(s): ?? --- Professional - -- ? 32482, PT , Colonoscopy, flexible; with biopsy, single ? or multip le Diagnosis Code(s): ?? --- Professional - -- ? Z12.11, E ncounter for screening for malignant ? neoplasm of colon ? K62.1, Re ctal polyp ? K57.30, D iverticulosis of large intestine without ? perforati on or abscess without bleeding CPT copyright 2015 [employer]. All rights reserved. The codes documented in this report are preliminary and upon certified coder review may be revised to meet current complianc e requirements. Attending Participation: MD Jean Claude Stanton, 04/01/2016 8:30:39 AM Number of Addenda: 0 Note Initiated On: 04/01/2016 8:03 AM Procedure Note Jean Claude Chauhan MD - 04/01/2016Formatti ng of this note might be different from the original. Instrument Name: 181 Indications: Screening for colorectal ma lignant neoplasm Providers: Jean Claude Chauhan, Rosi brian LPN, Ivelisse Palmer, RN Referring MD: Alisha Kimball MD Medicines: [...] and retrieved. Recommendation: - Return to [facility]ering [facility] michele - Await Path results. I will contact [facility] letter in 1-2 weeks. - High fiber diet. Procedure Code(s): --- Professional --- 44972, PT, Colonoscopy, flexible; with biopsy, single or multiple Diagnosis Code(s): --- Professional --- Z12.11, Encounter for screening for mal ignant neoplasm of colon K62.1, Rectal polyp K57.30, Diverticulosis of large intesti ne without perforation or abscess without bleeding CPT copyright 2015 [employer]. All rights reserved. The codes documented in this report are preliminary and upon certified coder review may be revised to meet current complianc e requirements. Attending Participation: MD Jean Claude Stanton, 04/01/2016 8:30:39 AM Number of Addenda: 0 Note Initiated On: 04/01/2016 8:03 AM Jean Claude Chauhan MD DIGESTIVE CARE Performing Organization Address City/State/ZIP Code Phon e Number [facility]) [facility] ([facility]) [place], [place] Surgical Path - Colonoscopy (04/01/2016 7:00 AM CDT) [facility] gist Method Time Signature Histology (NOTE) REGIONS [...] received in formalin and labeled with the prince duong's name. ??The specimen consists of six mtz-white irregular sof t tissue fragments averaging 0.2 cm. ??The specimen is filtered and e ntirely submitted in one cassette. ??js jds/04/01/2016 Microscopic Description Microscopic examination is performed. ?? kds/04/02/2016 Denice Becerril MD [facility] Department of Pathology [address] [place] [address] ??[id number] Specimen Anatomical Collection Method Collection Time Receive d Time (Source) Location / / Volume Laterality COLON STRUCTURE / 04/01/2016 7:00 AM 03/06 Unknown CDT 11:14 AM CDT Jean Claude Chauhan MD LAB_1 Performing Organization Address City/State/ZIP Code Phon e Number [phone] [address] documented in this encounter Visit Diagnoses Diagnosis [...] protocol. documented in this encounter Care Teams Cma Or Lpn Relationship Specialty Start Date End Date Alisha Kimball MD PCP - General 07/08/05 [address] [place] [address] documented as of this encounter
--- OUTSIDE RECORDS SUMMARY | 2022-05-29 13:34 | XMS_ITS | Encounter Summary ---
:1955 Author Organization [employer] Address [address] [place] [address] Care Team Providers Name Role Phone Alisha Kimball MD Primary Care Provider Reason for Visit Reason Comments HTN MANAGEMENT AND EDUCATION Encounter Details Date Type Department Care Team Description 06/04/2016 Office Visit [facility] Hans, Tesha, Essential hypertension (Prim levy Dx); [address] [facility] PharmD Diabetes mellitus, type 2 (HRC); [place], [place] [address] Hypercholeste rolemia (HRC) [address] [facility] [phone] [place] [address] Social History Tobacco Use Types Packs/Day Years Used Date Smoking Tobacco: Never Smokeless Tobacco: Never Alcohol Use Standard Drinks/Week Comments No 0 (1 standard drink = 0.6 oz pure alcoho l) Sex Assigned at Date Recorded Not on file documented as of this encounter Last Filed Vital Signs Vital Sign Reading Time Taken Comments Blood Pressure 122/95 06/04/2016 7:49 AM MATERIAL FLOW ANALYST Pulse 86 06/04/2016 7:49 AM MATERIAL FLOW ANALYST Temperature - - Respiratory Rate - - [...] if you have questions. Thanks, Gamal Jasmine RIAL FLOW ANALYST documented in this encounter Progress Notes Kenroy Anderson - 06/04/2016 7:57 AM CST Sole Velasco is a 61 y.o. old [...] for June 18 at 8:00 am. Updated [employer] med list and reviewed medications including indications with patient. Total time spent with patient 30 minutes. Monica Jasmine, AnneD IV Student Appointment conducted by student. Case discussed with student and I agree with student's plan/note. Tesha Maxwell PharmD 06/04/2016, 8:46 AM RIAL FLOW ANALYST documented in this encounter Plan of Treatment Upcoming Encounters Date Type Specialty Care Team Description 06/09/2022 Appointment General Dentistry Elaine Garcia, [facility] [address] [place] [address] (Wo rk) documented as of this encounter Visit Diagnoses Diagnosis Essential hypertension (HRC) - Primary Unspecified essential hypertension Diabetes mellitus, type 2 (HRC) Type II or unspecified type diabetes dinora litus without mention of complication, not stated as uncontrolled Hypercholesterolemia Pure hypercholesterolemia documented in this encounter Care Teams Entry Level Sales Associate Relationship Specialty Start Date End Date Alisha Kimball MD PCP - General 07/08/[address] [place] [address] documented as of this encounter
--- OUTSIDE RECORDS SUMMARY | 2022-05-29 13:34 | XMS_ITS | Encounter Summary ---
:1955 Author Organization [employer] Address [address] [place] [address] Care Team Providers Name Role Phone Alisha Kimball MD Primary Care Provider Encounter Details Date Type Department Care Team Description 05/04/2016 Lab Visit [facility] Essential hypertension [address] [place], [place] [address] Social History Tobacco Use [...] Description 06/09/2022 Appointment General Dentistry Elaine Garcia, [address] [place], [place] [phone] (Wo rk) documented as of this encounter [...] (05/04/2016 3:49 PM CDT) Analysis Performed At [facility] logist Time Signature Creatinine 0.72 0.55 - [facility] 1.02 mg/dl LABORATORIES GFR, Estimated >60 >60 [facility] ml/min/1.7 LABORATORIES 3m2 GFR, Est., If >60 >60 [facility] Black ml/min/1.7 LABORATORIES 3m2 Specimen Anatomical Collection Method Collection Time Receive d Time (Source) Location / / Volume Laterality 05/04/2016 3:49 PM 6 3:50 CDT PM CDT Narrative [facility] - 05/04/2016 7:28 PM C DT Performed at [facility], [address] [place] [id number] Alisha Kimball MD LAB_1 Performing Organization Address City/[facility] Phon e Number [facility] [phone] Potassium (05/04/2016 3:49 PM CDT) P athologist Signature Potassium 4.2 3.5 - 5.1 [facility] mmol/L Specimen Anatomical Collection Method Collection Time Receive d Time (Source) Location / / Volume Laterality 05/04/2016 3:49 PM 6 3:50 CDT PM CDT Narrative [facility] - 05/04/2016 7:28 PM C DT Performed at [facility], [address] [place] [address] ??[id number] Alisha Kimball MD LAB_1 Performing Organization Address City/[facility] Phon e Number [facility] [phone] documented in this encounter Visit Diagnoses Diagnosis Essential hypertension (HRC) Unspecified essential hypertension documented in this encounter Care Teams Professor Of Floriculture Relationship Specialty Start Date End Date Alisha Kimball MD PCP - General 07/08/05 [address] [place] [address] documented as of this encounter
--- OUTSIDE RECORDS SUMMARY | 2022-05-29 13:34 | XMS_ITS | Encounter Summary ---
:1955 Author Organization [employer] Address [address] [place] [address] Care Team Providers Name Role Phone Alisha Kimball MD Primary Care Provider Encounter Details Date Type Department Care Team Description 12/01/2016 Lab Visit [facility] Encounter for long-term (cur rent) use of medications; [address] [facility] Diabetes mellitus, type 2 (H RC); [place] [address] Hypercholesterolemia; [phone] Essential hyper tension; Screening for t hyroid [...] Dentistry Elaine Garcia, [facility] [address] [place], [place] [phone] (Wo rk) documented as of this encounter [...] 12/01/2016 1:13 PM C DT Performed at [facility], [address] [place] [address] ??[id number] Alisha Kimball MD LAB_1 Performing Organization Address City/State/ZIP Code Phon e Number [facility] [phone] (ABNORMAL) ALT (SGPT) (12/01/2016 7:14 AM CDT) athologist Signature ALT (SGPT) 87 (H) 0 - 55 U/L [facility] Specimen Anatomical Collection Method Collection Time Receive d Time (Source) Location / / Volume Laterality 12/01/2016 7:14 AM 7 7:16 CDT AM CDT Narrative [facility] - 12/01/2016 1:01 PM C DT Performed at [facility], [address] [place] [address] ??[id number] Alisha Kimball MD LAB_1 Performing Organization Address [facility] Phon e Number [facility] [phone] Potassium (12/01/2016 7:14 AM CDT) P athologist Signature Potassium 3.9 3.5 - 5.1 [facility] mmol/L Specimen Anatomical Collection Method Collection Time Receive d Time (Source) Location / / Volume Laterality 12/01/2016 7:14 AM 7 7:16 CDT AM CDT Narrative [facility] - 12/01/2016 1:01 PM C DT Performed at [facility], [address] [place] [address] ??[address] Alisha Kimball MD LAB_1 Performing Organization Address [facility] Phon e Number [facility] [phone] Creatinine / GFR (12/01/2016 7:14 AM CDT) [facility] Time Signature Creatinine 0.77 0.55 - [facility] 1.02 mg/dl LABORATORIES GFR, Estimated >60 >60 [facility] ml/min/1.7 LABORATORIES 3m2 GFR, Est., If >60 >60 [facility] Black ml/min/1.7 LABORATORIES 3m2 Specimen Anatomical Collection Method Collection Time Receive d Time (Source) Location / / Volume Laterality 12/01/2016 7:14 AM 7 7:16 CDT AM CDT Narrative [facility] - 12/01/2016 1:01 PM C DT Performed at [facility], [address] [place] [address] ??[id number] Alisha Kimball MD LAB_1 Performing Organization Address [facility] Phon e Number [facility] [phone] Lipid Panel and Direct LDL(If Needed) (12/01/2016 [...] 12/01/2016 1:01 PM C DT Performed at [address] ??[address] Alisha Kimball MD LAB_1 Performing Organization Address [facility] Phon e Number [facility] [phone] (ABNORMAL) Hgb A1c (12/01/2016 7:14 AM CDT) athologist Signature Hgb A1c 7.2 (H) 4.3 [...] 12/01/2016 1:00 PM C DT Performed at [address] ??[address] Alisha Kimball MD LAB_1 Performing Organization Address City/[facility] Phon e Number [facility] [phone] Sodium (12/01/2016 7:14 AM CDT) athologist Signature Sodium 140 136 - 145 [facility] mmol/L Specimen Anatomical Collection Method Collection Time Receive d Time (Source) Location / / Volume Laterality 12/01/2016 7:14 AM 7 7:16 CDT AM CDT Narrative [facility] - 12/01/2016 1:01 PM C DT Performed at [facility], [address] ??[id number] Alisha Kimball MD LAB_1 Performing Organization Address City/State/ZIP Code Phon e Number [facility] [phone] documented in this encounter Visit Diagnoses Diagnosis Encounter for long-term (current) use of medications Encounter for long-term (current) use of other medications Diabetes mellitus, type 2 (HRC) Type II or unspecified type diabetes dinora litus without mention of complication, not stated as uncontrolled Hypercholesterolemia Pure hypercholesterolemia Essential hypertension (HRC) Unspecified essential hypertension Screening for thyroid disorder documented in this encounter Care Teams Top Dyeing Machine Loader Relationship Specialty Start Date End Date Alisha Kimball MD PCP - General 07/08/05 [address] [place] [address] documented as of this encounter
--- OUTSIDE RECORDS SUMMARY | 2022-05-29 13:34 | XMS_ITS | Encounter Summary ---
:1955 Author Organization [employer] Address [address] [place] [address] Care Team Providers Name Role Phone Alisha [...] Dentistry Elaine Garcia, [facility] [address] [place] [address] (Wo rk) documented as of this encounter Visit Diagnoses Not on filedocumented in this encounter Care Teams Line Crew Supervisor Relationship Specialty Start Date End Date Alisha Kimball MD PCP - General 07/08/05 [address] [place] [address] documented as of this encounter
--- OUTSIDE RECORDS SUMMARY | 2022-05-29 13:34 | XMS_ITS | Encounter Summary ---
:1955 Author Organization [employer] Address [address] [place] [address] Care Team Providers Name Role Phone Alisha [...] Department Care Team Description 01/08/2016 Office Visit [facility] Abraham Rivas, Visit for eye and vision exa m (Primary Dx); [address] OD Presbyopia; [place] [address] Type 2 diabetes mellitus without complic ations ([facility]) [phone] [place], [place] [id number] Social History Tobacco Use Types Packs/Day Years [...] risks, benefits, potential complications andalternatives with your diamond setter apprentice. Fortunately, complications from cataract surgery are relatively [...] in this encounter Progress Notes Abraham Rivas, RAJEEV - 01/08/2016 1:47 PM CDT HPI Chief [...] last eye exam was on 06/30 at [facility] [address]. alfaro Diabetes is Type II (adult) [...] Dentistry Elaine Garcia, [facility] [address] [place] [address] (Wo rk) documented as of this encounter Visit Diagnoses Diagnosis Visit for eye and vision exam - Primary Examination of eyes and vision Presbyopia Type 2 diabetes mellitus without complic ations (HRC) Type II or unspecified type diabetes dinora litus without mention of complication, not stated as uncontrolled documented in this encounter Care Teams Circus Roustabout Relationship Specialty Start Date End Date Alisha Kimball MD PCP - General 07/08/05 [address] [place] [address] documented as of this encounter
--- OUTSIDE RECORDS SUMMARY | 2022-05-29 13:34 | XMS_ITS | Encounter Summary ---
:1955 Author Organization [employer] Address [address], [place] [address] Care Team Providers Name Role Phone Alisha Kimball MD Primary Care Provider Reason for Visit Reason Comments MEDICATION THERAPY MANAGEMENT Encounter Details Date Type Department Care Team Description 06/18/2016 Office Visit [facility] Tesha Maxwell, Essential hypertension [address] [facility] PharmD (Primary Dx) [place] [address] [facility] [phone] [place], [place] [address] Social History Tobacco Use Types Packs/Day Years Used Date Smoking Tobacco: Never Smokeless Tobacco: Never Alcohol Use Standard Drinks/Week Comments No 0 (1 standard drink = 0.6 oz pure alcoho l) Sex Assigned at Date Recorded Not on file documented as of this encounter Last Filed Vital Signs Vital Sign Reading Time Taken Comments Blood Pressure 123/86 06/18/2016 7:39 AM SOLAR INSTALLATION FOREMAN Pulse 81 06/18/2016 7:39 AM SOLAR INSTALLATION FOREMAN Temperature - - Respiratory Rate - - Oxygen Saturation - - Inhaled Oxygen Concentration - - Weight - - Height - - Body Mass Index - - documented in this encounter Patient Instructions Patient InstructionsPeltTesha smith PharmD - 06/18/2016 7:34 AM CST 1) Your blood pressure is in goal range today. Continue on amlodipine 5mg daily, [id number] daily and losartan 50mg daily. 2) Your follow-up visit is scheduled for , September 24 at 8:00am. Please call me or e-mail if you have questions. Thanks, Tesha Maxwell PharmD [facility] on Wednesday & Wednesday [facility] on & Wednesday R INSTALLATION FOREMAN documented in this encounter Progress Notes Tesha [...] scheduled for September 24 at 8:00am. Updated [employer] list and reviewed medications including indications with patient. Total time spent with patient 15 minutes. Tesha Maxwell PharmD Clinical Pharmacist Medication Therapy Management Program R INSTALLATION FOREMAN documented in this encounter Plan of Treatment Upcoming Encounters Date Type Specialty Care Team Description 06/09/2022 Appointment General Dentistry Elaine Garcia, [facility] [address] [place] [address] (Wo rk) documented as of this encounter Visit Diagnoses Diagnosis Essential hypertension (HRC) - Primary Unspecified essential hypertension documented in this encounter Care Teams Cereal Supervisor Relationship Specialty Start Date End Date Alisha Kimball MD PCP - General 07/08/05 [address] [place] [address] documented as of this encounter
--- OUTSIDE RECORDS SUMMARY | 2022-05-29 13:34 | XMS_ITS | Encounter Summary ---
:1955 Author Organization [employer] Address [address] [place] [address] Care Team Providers Name Role Phone Carroll Avalos MD Primary Care Provider Reason for Visit Reason Comments Refill Metformin Encounter Details Date Type Department Care Team Description 11/16/2016 Refill [facility] Carroll Avalos MD Refill (Metformin) [address] [facility]. [address] [place] [address] [place], [place] [phone] (Wo rk) Social History Tobacco Use Types [...] Lyn Payne 11/18/2016, 8:13 AM Interface, Out Tangled Query - 11/16/2016 6:02 PM CDT metFORMIN [...] HBA1C: 6.6 % on 03/06/2016 Powered by [employer], Reference: [id number], 11/16/2016 6:02:46 PM CDT, Pool: ARNOLD AMEZQUITA RN ([id number]) Interface, Out Tangled Query - 11/16/2016 6:02 PM CDT The [...] Team Description 06/09/2022 Appointment General Dentistry Elaine Gacria, [facility] [address] [place], [place] [phone] (Wo rk) documented as of this encounter Visit Diagnoses Not on filedocumented in this encounter Care Teams Air Plant Engineer Relationship Specialty Start Date End Date Carroll Avalos MD PCP - General 07/08/05 [address] [place], [place] [phone] documented as of this encounter
--- OUTSIDE RECORDS SUMMARY | 2022-05-29 13:34 | XMS_ITS | Encounter Summary ---
:1955 Author Organization [employer] Address [address] [place] [address] Care Team Providers Name Role Phone Alisha Kimball MD Primary Care Provider Reason for Visit Reason Comments Refill atorvastatin (LIPITOR) 10 MG tablet [Pharmacy Med Name: ATORVASTATIN 10MG TABS] Encounter Details Date Type Department Care Team Description 02/09/2016 Refill [facility] Alisha Kimball MD Refill (atorvastatin Medicine [address] (LIPITOR) 10 MG tablet [address] [place] [address] [Pharmacy Med Name: [place] [address] ATORVASTATIN 10MG TABS]) [phone] Social History Tobacco Use Types Packs/Day Years [...] visit 12/09/2015. Alisha Kimball MD Interface, Out [employer] Prov Query - 02/09/2016 6:45 AM CDT [...] LDL: 72 mg/dL on 11/30/2015 Powered by [employer], Reference: [id number], 02/09/2016 6:45:41 AM CDT, Pool: ARNOLD AMEZQUITA RN ([id number]) documented in this encounter Plan of Treatment Upcoming Encounters Date Type Specialty Care Team Description 06/09/2022 Appointment General Dentistry Elaine Garcia, [facility] [address] [place] [address] (Wo rk) documented as of this encounter Visit Diagnoses Not on filedocumented in this encounter Care Teams In Processing Instructor Relationship Specialty Start Date End Date Alisha Kimball MD PCP - General 07/08/05 [address] [place] [address] documented as of this encounter
--- OUTSIDE RECORDS SUMMARY | 2022-05-29 13:34 | XMS_ITS | Encounter Summary ---
:1955 Author Organization [employer] Address [address] [place] [address] Care Team Providers Name Role Phone Alisha Kimball MD Primary Care Provider Reason for Visit Reason Comments HTN MANAGEMENT AND EDUCATION Encounter Details Date Type Department Care Team Description 10/10/2015 Office Visit [facility] Tesha Maxwell, Essential hypertension (Prim levy Dx); [address] [facility] PharmD Diabetes mellitus, type 2 (HRC) [place] [address] [address] [facility] [phone] [place], [place] [address] Social History Tobacco Use Types Packs/Day Years Used Date Smoking Tobacco: Never Smokeless Tobacco: Never Alcohol Use Standard Drinks/Week Comments No 0 (1 standard drink = 0.6 oz pure alcoho l) Sex Assigned at Date Recorded Not on file documented as of this encounter Last Filed Vital Signs Vital Sign Reading Time Taken Comments Blood Pressure 134/86 10/10/2015 7:32 AM CDT Pulse 72 10/10/2015 7:32 AM CDT Temperature - - Respiratory Rate - - Oxygen Saturation - - Inhaled Oxygen Concentration - - Weight 85.7 kg (189 lb) 10/10/2015 7:33 AM CDT Height - - Body Mass Index 32.44 11/05/2014 8:16 AM CDT documented in this encounter Patient Instructions Patient InstructionsPeTesha wallace, PharmD - 10/10/2015 7:23 AM CDT 1) Continue on amlodipine 10mg 1 tab daily. Your blood pressure is in goal today on first check. 2) Continue your walking efforts. 3) Follow-up with me as you have scheduled. Please call me or e-mail if you have questions. Thanks, Tesha Maxwell PharmD [facility] on Wednesday & Wednesday [facility] on & Wednesday documented in this encounter Progress Notes Tesha Maxwell PharmD - 10/10/2015 7:22 AM CDT S Loc Velasco is a 60 y.o. old female who was referred by Employer group for HTN management/education. Melia presents today for blood pressure follow-up. She has been taking amlodipine 10mg daily since our last visit without issue. Blood pressure at home has been good. She denies lower leg edema, ayala, dizziness, chest pain and lightheadedness. Morning blood sugars continue to improve. She notes today's reading was 113 and most levels are in the ball park at this time. She will have A1C rechecked in November. Continues on metformin XR 500mg 4 tabsdaily. Denies hypoglycemia. Meeting cholesterol goals at this time. Exercise: walking daily 2+ miles Diet:reduced sodium and carbohydrate Medication optimization: Patient reports missing a dose [...] visit. BP Readings from Last 2 Encounters: 09/12/15 132/94 07/29/15 135/91 HGBA1C (%) Date Value 07/27/2015 7.2* Lab [...] HgbA1C goal: <8%. Pt is at goal. No new DTPs identified P 1) Continue current medication regimen 2) Patient will continue with lifestyle improvements to aid with weight control and reducing BP, BG. 3) A copy of the After Visit Summary was provided to patient, details were reviewed by me and all questions were answered. 4) Follow-up visit scheduled for December 08 at 11:00am. Updated [employer] med list and reviewed medications including indications with patient. Total time spent with patient 15 minutes. Tesha Maxwell PharmD Clinical Pharmacist Medication Therapy Management Program documented in this encounter Plan of Treatment Upcoming Encounters Date Type Specialty Care Team Description 06/09/2022 Appointment General Dentistry Elaine Garcia, [facility] [address] [place] [address] (Wo rk) documented as of this encounter Visit Diagnoses Diagnosis Essential hypertension (HRC) - Primary Unspecified essential hypertension Diabetes mellitus, type 2 (HRC) Type II or unspecified type diabetes dinora litus without mention of complication, not stated as uncontrolled documented in this encounter Care Teams Rail Track Maintainer Relationship Specialty Start Date End Date Alisha Kimball MD PCP - General 07/08/05 [address] [place] [address] documented as of this encounter
--- OUTSIDE RECORDS SUMMARY | 2022-05-29 13:34 | XMS_ITS | Encounter Summary ---
:1955 Author Organization [employer] Address [address] [place] [address] Care Team Providers Name Role Phone Alisha Kimball MD Primary Care Provider Reason for Visit Reason Comments Lab Orders Needed Encounter Details Date Type Department Care Team Description 11/18/2016 Telephone [facility] maxiAlisha Weiss MD Lab Orders Needed [address] [place] [address] [place], [place] [phone] (Wo rk) Social History Tobacco Use Types [...] [place] FP HP [place] 01/11/2017 9:00 AM [facility] I W[place] MIKEY HP [place] 01/18/2017 11:00 AM Eric Keller OD WD OPT [id number] 04/22/2017 8:00 AM Tesha Maxwell, AnneD SP Rx HPSP PCP: Alisha Kimball MD If Alisha Kimball MD is out of the clinic, is it okay to wait until they return? No Bertha Han, RN [Cash Management Coordinator: Please help schedule an upcoming appointment for a lab visit.] Please route to: Care Team Pool Floresita Fuchs - 11/18/2016 10:29 AM CDT What referral/order is being requested: LABS Why is the referral/order needed: (What is the medical condition for which the referral is needed?):FOR RHM & A1C Is it okay to leave detailed message on your voicemail? YES [Cash Management Coordinator/Appt Center: If this call is after 3 p.m., communicate to patient: If we are not able to get back to you by the end of the day and your symptoms worsen please contact the Careline at [phone] OR at .] [Cash Management Coordinator: Please inform patient that a referral does [...] [facility] [address] [place] [address] (Wo rk) documented as of this encounter Results TSH (12/01/2016 7:14 AM CDT) athologist Signature TSH, Sensitive 1.84 0.30 - [facility] uIU/ml Specimen Anatomical Collection Method Collection Time Receive d Time (Source) Location / / Volume Laterality 12/01/2016 7:14 AM 7 7:16 CDT AM CDT Narrative [facility] - 12/01/2016 1:13 PM C DT Performed at [address] ??[address] Alisha Kimball MD LAB_1 Performing Organization Address City/[facility] Code Phon e Number [facility] [phone] (ABNORMAL) ALT (SGPT) (12/01/2016 7:14 AM CDT) athologist Signature ALT (SGPT) 87 (H) 0 - 55 U/L [facility] Specimen Anatomical Collection Method Collection Time Receive d Time (Source) Location / / Volume Laterality 12/01/2016 7:14 AM 7 7:16 CDT AM CDT Narrative [facility] - 12/01/2016 1:01 PM C DT Performed at [address] ??[id number] Alisha Kimball MD LAB_1 Performing Organization Address City/[facility]/ZIP Code Phon e Number [facility] [phone] Potassium (12/01/2016 7:14 AM CDT) athologist Signature Potassium 3.9 3.5 - 5.1 [facility] mmol/L Specimen Anatomical Collection Method Collection Time Receive d Time (Source) Location / / Volume Laterality 12/01/2016 7:14 AM 7 7:16 CDT AM CDT Narrative [facility] - 12/01/2016 1:01 PM C DT Performed at [address] ??[address] Alisha Kimball MD LAB_1 Performing Organization Address City/[facility]/ZIP Code Phon e Number [facility] [phone] Creatinine / GFR (12/01/2016 7:14 AM CDT) [...] 12/01/2016 1:01 PM C DT Performed at [address] ??[address] Alisha Kimball MD LAB_1 Performing Organization Address [facility] Phon e Number [facility] [phone] Lipid Panel and Direct LDL(If Needed) (12/01/2016 7:14 AM CDT) [facility] gist Method Time Signature Hours Fasting 12 [...] 12/01/2016 1:01 PM C DT Performed at [facility], [address] [place] [address] ??[id number] Alisha Kimball MD LAB_1 Performing Organization Address [facility] Phon e Number [facility] [phone] (ABNORMAL) Hgb A1c (12/01/2016 7:14 AM CDT) [...] AM 7 7:16 CDT AM CDT Narrative [facility] - 12/01/2016 1:00 PM C DT Performed at [facility], [address] [place] [address] ??[address] Alisha Kimball MD LAB_1 Performing Organization Address City/State/ZIP Code Phon e Number [facility] [phone] documented in this encounter Visit Diagnoses Diagnosis [...] disorder documented in this encounter Care Teams Business Solutions Architect Relationship Specialty Start Date End Date Alisha Kimball MD PCP - General 07/08/05 [address] [place] [address] documented as of this encounter
--- OUTSIDE RECORDS SUMMARY | 2022-05-29 13:34 | XMS_ITS | Encounter Summary ---
:1955 Author Organization [employer] Address [address] [place] [address] Care Team Providers Name Role Phone Carroll Avalos MD Primary Care Provider Reason for Visit Reason Comments Medication Questions amlodipine 10 mg Encounter Details Date Type Department Care Team Description 01/08/2016 Telephone [facility] Carroll Avalos MD Medication Questions Practice [address] (amlodipine 10 mg) [address] [place] [address] [place] [address] [phone] Social History Tobacco Use Types Packs/Day Years [...] 01/09/2016 9:24 AM CDT Per 12/09/2015 visit, 1/5 tab (5 mg). Carroll Avalos MD Veronica [...] Appointment General Dentistry Elaine Garcia, [facility] [address] [place] [address] (Wo rk) documented as of this encounter Visit Diagnoses Not on filedocumented in this encounter Care Teams Electrical Solderer Relationship Specialty Start Date End Date Carroll Avalos MD PCP - General 07/08/05 [address] [place] [address] documented as of this encounter
--- OUTSIDE RECORDS SUMMARY | 2022-05-29 13:34 | XMS_ITS | Encounter Summary ---
:1955 Author Organization [facility] Address [address] [place] [address] Care Team Providers Name Role Phone Alisha Kimball MD Primary Care Provider Reason for Visit Reason Comments LAB TESTS, NOS Encounter Details Date Type Department Care Team Description 11/20/2015 Telephone [facility] maxi Alisha Kimball MD LAB TESTS, NOS [address] [place] [address] [place] [address] [phone] (Wo rk) Social History Tobacco Use Types Packs/Day Years Used Date Smoking Tobacco: Never Smokeless Tobacco: Never Alcohol Use Standard Drinks/Week Comments No 0 (1 standard drink = 0.6 oz pure alcoho l) Sex Assigned at Date Recorded Not on file documented as of this encounter Nursing Notes Francesca Cho CMA - 11/20/2015 8:37 AM CDT Labs ordered mAanda Arce - 11/20/2015 8:24 AM CDT Patient [...] Elaine Garcia, [facility] [address] [place] [address] (Wo rk) documented as of this encounter Results MICROALB/CREAT RATIO (11/30/2015 9:08 AM CDT) [facility] gist Method Time Signature Albumin, 0.8 mg/dl [...] 12/03/2015 2:50 PM C DT Performed at [facility], [address] [place] [address] ??[id number] Alisha Kimball MD LAB_1 Performing Organization Address City/[facility] Code Phon e Number [facility] [phone] (ABNORMAL) ALT (SGPT) (11/30/2015 9:08 AM CDT) athologist Signature ALT (SGPT) 74 (H) 0 - 69 U/L [facility] Specimen Anatomical Collection Method Collection Time Receive d Time (Source) Location / / Volume Laterality 11/30/2015 9:08 AM 201 6 9:10 CDT AM CDT Narrative [facility] - 12/03/2015 12:22 PM CDT Performed at [facility], [address] [place] [address] ??[id number] Alisha Kimball MD LAB_1 Performing Organization Address City/[facility]/ZIP [facility] Phon e Number [facility] [phone] (ABNORMAL) HGB A1C (11/30/2015 9:08 AM CDT) athologist Signature Hgb A1c 7.3 (H) 4.3 [...] - 12/03/2015 12:24 PM CDT Performed at [facility], [address] [place] [address] ??[address] Alisha Kimball MD LAB_1 Performing Organization Address City/[facility] Phon e Number [facility] [phone] (ABNORMAL) LIPID PANEL AND DIRECT LDL(IF NEEDED) [...] - 12/03/2015 12:22 PM CDT Performed at [facility], [address] [place] [address] ??[address] Alisha Kimball MD LAB_1 Performing Organization Address City/[facility] Phon e Number [facility] [phone] SODIUM (11/30/2015 9:08 AM CDT) P athologist Signature Sodium 143 135 - 145 [facility] mmol/L Specimen Anatomical Collection Method Collection Time Receive d Time (Source) Location / / Volume Laterality 11/30/2015 9:08 AM 6 9:10 CDT AM CDT Narrative [facility] - 12/03/2015 12:22 PM CDT Performed at [facility], [address] [place] [address] ??[address] Alisha Kimball MD LAB_1 Performing Organization [address] [facility] Phon e Number [facility] [phone] POTASSIUM (11/30/2015 9:08 AM CDT) P athologist Signature Potassium 4.8 3.5 - 5.3 [facility] mmol/L Specimen Anatomical Collection Method Collection Time Receive d Time (Source) Location / / Volume Laterality 11/30/2015 9:08 AM 6 9:10 CDT AM CDT Narrative [facility] - 12/03/2015 12:22 PM CDT Performed at [facility], [address] [place] [address] ??[address] Alisha Kimball MD LAB_1 Performing Organization Address [facility] Phon e Number [facility] [phone] CREATININE / GFR (11/30/2015 9:08 AM CDT) [...] - 12/03/2015 12:22 PM CDT Performed at [facility], [address] [place] [id number] Alisha Kimball MD LAB_1 Performing Organization [address] [facility] Phon e Number [facility] [phone] documented in this encounter Visit Diagnoses Diagnosis [...] uncontrolled documented in this encounter Care Teams Compress Machine Operator Relationship Specialty Start Date End Date Alsiha Kimball MD PCP - General 07/08/05 [address] [place] [address] documented as of this encounter
--- OUTSIDE RECORDS SUMMARY | 2022-05-29 13:34 | XMS_ITS | Encounter Summary ---
:1955 Author Organization [employer] Address [address] [place] [address] Care Team Providers Name Role Phone Alisha Kimball MD Primary Care Provider Encounter Details Date Type Department Care Team Description 06/15/2016 Lab Visit [facility] Essential hypertension [address] [place], [place] [address] Social History Tobacco Use Types Packs/Day Years Used Date Smoking Tobacco: Never Smokeless Tobacco: Never Alcohol Use Standard Drinks/Week Comments No 0 (1 standard drink = 0.6 oz pure alcoho l) Sex Assigned at Date Recorded Not on file documented as of this encounter Progress Notes Tesha Maxwell PharmD - 06/17/2016 11:02 AM DAIRY AND FOOD LABORATORY ASSISTANT Quick Note: Normal labs. Will discuss at clinic visit 06/18/16. Tesha Maxwell PharmD 06/17/2016, 11:02 AM Y AND FOOD LABORATORY ASSISTANT documented in this encounter Plan of Treatment Upcoming Encounters Date Type Specialty Care Team Description 06/09/2022 Appointment [place] [address] [place] [address] (Wo rk) documented as of this encounter Procedures Procedure Name Priority Date/Time Associated Diagnosis Comme nts CREATININE / GFR Routine 06/15/2016 4:28 PM Essential hyperten bobbi Results for this DAIRY AND FOOD LABORATORY ASSISTANT procedure are i n the results section. POTASSIUM Routine 06/15/2016 4:28 PM Essential hypertension Results for this DAIRY AND FOOD LABORATORY ASSISTANT procedure are i n the results section. documented in this encounter Results Creatinine / GFR (06/15/2016 4:28 PM DAIRY AND FOOD LABORATORY ASSISTANT) Analysis Performed At Patho logist Time Signature Creatinine 0.92 0.55 - [facility] 1.02 mg/dl [facility] GFR, Estimated >60 >60 [facility] ml/min/1.7 LAB[facility]ATORIES 3m2 GFR, Est., If >60 >60 [facility] Black ml/min/1.7 LABORATORIES 3m2 Specimen Anatomical Collection Method Collection Time Receive d Time (Source) Location / / Volume Laterality 06/15/2016 4:28 PM 6 4:29 DAIRY AND FOOD LABORATORY ASSISTANT PM DAIRY AND FOOD LABORATORY ASSISTANT Narrative [facility] - 06/15/2016 6:[address] Performed at [facility], [address] [place] [address] ??[phone] Alisha Kimball MD LAB_1 Performing Organization Address [facility] Phon e Number [facility] [phone] Potassium (06/15/2016 4:28 PM DAIRY AND FOOD LABORATORY ASSISTANT) P athologist Signature Potassium 4.2 3.5 - 5.1 [facility] mmol/L Specimen Anatomical Collection Method Collection Time Receive d Time (Source) Location / / Volume Laterality 06/15/2016 4:28 PM 6 4:29 DAIRY AND FOOD LABORATORY ASSISTANT PM DAIRY AND FOOD LABORATORY ASSISTANT Narrative [facility] - 06/15/2016 6:[address] Performed at [facility], [address] [place] [address] ??[phone] Alisha Kimball MD LAB_1 Performing Organization Address City/[facility] Phon e Number [facility] [phone] documented in this encounter Visit Diagnoses Diagnosis Essential hypertension (HRC) Unspecified essential hypertension documented in this encounter Care Teams Converting Technician Relationship Specialty Start Date End Date Alisha Kimball MD PCP - General 07/08/05 [address] [place] [address] documented as of this encounter
--- OUTSIDE RECORDS SUMMARY | 2022-05-29 13:34 | XMS_ITS | Encounter Summary ---
:1955 Author Organization [employer] Address [address] [address] Care Team Providers Name Role Phone Alisha Kimball MD Primary Care Provider Reason for Visit Reason Comments HTN MANAGEMENT AND EDUCATION Encounter Details Date Type Department Care Team Description 04/09/2016 Office Visit [facility] Tesha Maxwell, Essential hypertension [address] [facility] PharmD (Primary Dx) [place] [address] [address] [facility] [phone] [place], [place] [address] Social History Tobacco Use [...] Patient Instructions Patient InstructionsPeTesha wallace PharmD - 04/09/2016 7:50 AM CDT 1) Reduce to amlodipine 5mg daily. 2) Start losartan 25mg 1 tab daily. 3) Have your potassium and kidney function rechecked in 2-4 weeks. 4) Your follow-up appointment is scheduled for , November 3rd at 8:00am at the [facility]. Please call me or e-mail if you have questions. Thanks, Tesha Maxwell PharmD [facility] on Wednesday & Wednesday [facility] [...] scheduled for May 07 at 8:00am. Updated [employer] list and reviewed medications including indications with patient. Total time spent with patient 30 minutes. Tesha Maxwell PharmD Clinical Pharmacist Medication Therapy Management Program documented in this encounter Plan of Treatment Upcoming Encounters Date Type Specialty Care Team Description 06/09/2022 Appointment General Dentistry Elaine Garcia, [facility] [address] [place] [address] (Wo rk) documented as of [...] 05/04/2016 7:28 PM C DT Performed at [facility], [address] [place] [phone] Alisha Kimball MD LAB_1 Performing Organization Address City/[facility] Phon e Number [facility] [phone] Potassium (05/04/2016 3:49 PM CDT) P athologist Signature Potassium 4.2 3.5 - 5.1 [facility] mmol/L Specimen Anatomical Collection Method Collection Time Receive d Time (Source) Location / / Volume Laterality 05/04/2016 3:49 PM 6 3:50 CDT PM CDT Narrative [facility] - 05/04/2016 7:28 PM C DT Performed at [facility], [address] [place] [phone] Alisha Kimball MD LAB_1 Performing Organization Address City/[facility] Phon e Number [facility] [phone] documented in this encounter Visit Diagnoses Diagnosis Essential hypertension (HRC) - Primary Unspecified essential hypertension Essential hypertension (HRC) Unspecified essential hypertension documented in this encounter Care Teams Excelsior Machine Tender Relationship Specialty Start Date End Date Alisha Kimball MD PCP - General 07/08/05 [address] [place] [address] documented as of this encounter
--- OUTSIDE RECORDS SUMMARY | 2022-05-29 13:34 | XMS_ITS | Encounter Summary ---
:1955 Author Organization [facility] Address [address] [place] [address] Care Team Providers Name Role Phone Alisha Kimball MD Primary Care Provider Reason for Visit Reason Comments HTN MANAGEMENT AND EDUCATION Encounter Details Date Type Department Care Team Description 12/09/2015 Office Visit [facility] Tesha Maxwell, Diabetes mellitus, type 2 (H RC) (Primary Dx); [address] PharmD Essential hypertension; [place] [address] [address] Hypercholesterolemia (HRC) [phone] [place] [address] Social History Tobacco Use Types Packs/Day Years Used Date Smoking Tobacco: Never Smokeless Tobacco: Never Alcohol Use Standard Drinks/Week Comments No 0 (1 standard drink = 0.6 oz pure alcoho l) Sex Assigned at Date Recorded Not on file documented as of this encounter Patient Instructions Patient InstructionsTesha Maxwell PharmD - 12/09/2015 10:57 AM CDT 1) [...] , March 12 at 8:00am at the [facility]. Please call me or e-mail if you have questions. Thanks, Anne MurrietaD [facility] on Wednesday & Wednesday [facility] on & Wednesday documented in this encounter Progress Notes Tesha Maxwell PharmD - 12/09/2015 10:56 AM CDT [facility] is a [...] were answered. 4) Follow-up appointment scheduled for , March 12 at 8:00am Updated [employer] med list and reviewed medications including indications with patient. Total time spent with patient 15 minutes. Tesha Maxwell PharmD Clinical Pharmacist Medication Therapy Management Program documented in this encounter Plan of Treatment Upcoming Encounters Date Type Specialty Care Team Description 06/09/2022 Appointment General Dentistry Elaine Garcia, [facility] [address] [place] [address] (Wo rk) documented as of this encounter Visit Diagnoses Diagnosis Diabetes mellitus, type 2 (HRC) - Primar y Type II or unspecified type diabetes dinora litus without mention of complication, not stated as uncontrolled Essential hypertension (HRC) Unspecified essential hypertension Hypercholesterolemia Pure hypercholesterolemia documented in this encounter Care Teams Tractor Mechanic Apprentice Relationship Specialty Start Date End Date Alisha Kimball MD PCP - General 07/08/05 [address] [place] [address] documented as of this encounter
--- OUTSIDE RECORDS SUMMARY | 2022-05-29 13:34 | XMS_ITS | Encounter Summary ---
:1955 Author Organization [employer] Address [address] [place] [address] Care Team Providers Name Role Phone Alisha Kimball MD Primary Care Provider Encounter Details Date Type Department Care Team Description 11/30/2015 Lab Visit [place] Essential hyper tension; Laboratory Hypercholesterolemia (HRC); [address] [facility] Diabetes mellitus, type 2 (H RC) [place], [place] [address] Social History Tobacco Use Types Packs/Day [...] Appointment General Dentistry Elaine Garcia, [facility] [address] [place] [address] (Wo rk) documented as of [...] Results MICROALB/CREAT RATIO (11/30/2015 9:08 AM CDT) [facility] Method Time Signature Albumin, 0.8 mg/dl [...] at [facility], [address] [place] [phone] Alisha Kimball MD LAB_1 Performing Organization Address City/State/ZIP Code Phon e Number [facility] [phone] (ABNORMAL) ALT (SGPT) (11/30/2015 9:08 AM CDT) athologist Signature ALT (SGPT) 74 (H) 0 - 69 U/L [facility] Specimen Anatomical Collection Method Collection Time Receive d Time (Source) Location / / Volume Laterality 11/30/2015 9:08 AM 201 6 9:10 CDT AM CDT Narrative [facility] - 12/03/2015 12:22 PM CDT Performed at [facility], [address] [place] [address] ??[phone] Alisha Kimball MD LAB_1 Performing Organization Address [facility] Phon e Number [facility] [phone] (ABNORMAL) HGB A1C (11/30/2015 9:08 AM CDT) [...] - 12/03/2015 12:24 PM CDT Performed at [facility], [address] [place] [address] ??[address] Alisha Kimball MD LAB_1 Performing Organization Address [facility] Phon e Number [facility] [phone] (ABNORMAL) LIPID PANEL AND DIRECT LDL(IF NEEDED) [...] - 12/03/2015 12:22 PM CDT Performed at [facility], [address] [place] [address] ??[address] Alisha Kimball MD LAB_1 Performing Organization Address City/State/ZIP Code Phon e Number [facility] [phone] SODIUM (11/30/2015 9:08 AM CDT) P athologist Signature Sodium 143 135 - 145 [facility] mmol/L Specimen Anatomical Collection Method Collection Time Receive d Time (Source) Location / / Volume Laterality 11/30/2015 9:08 AM 6 9:10 CDT AM CDT Narrative [facility] - 12/03/2015 12:22 PM CDT Performed at [facility], [address] [place] [address] ??[phone] Alisha Kimball MD LAB_1 Performing Organization Address City/[facility] Code Phon e Number [facility] [phone] POTASSIUM (11/30/2015 9:08 AM CDT) P athologist Signature Potassium 4.8 3.5 - 5.3 [facility] mmol/L Specimen Anatomical Collection Method Collection Time Receive d Time (Source) Location / / Volume Laterality 11/30/2015 9:08 AM 6 9:10 CDT AM CDT Narrative [facility] - 12/03/2015 12:22 PM CDT Performed at [facility], [address] [place] [address] ??[id number] Alisha Kimball MD LAB_1 Performing Organization Address City/[facility]/ZIP Code Phon e Number [facility] [phone] CREATININE / GFR (11/30/2015 9:08 AM CDT) [...] at [facility], [address] ??[address] Alisha Kimball MD LAB_1 Performing Organization Address City/State/ZIP Code Phon e Number [facility] [phone] documented in this encounter Visit Diagnoses Diagnosis Essential hypertension (HRC) Unspecified essential hypertension Hypercholesterolemia Pure hypercholesterolemia Diabetes mellitus, type 2 (HRC) Type II or unspecified type diabetes dinora litus without mention of complication, not stated as uncontrolled documented in this encounter Care Teams Dentist Relationship Specialty Start Date End Date Alisha Kimball MD PCP - General 07/08/05 [address] [place] [address] documented as of this encounter
--- OUTSIDE RECORDS SUMMARY | 2022-05-29 13:34 | XMS_ITS | Encounter Summary ---
:1955 Author Organization [facility] Address [address] [place] [address] Care Team Providers Name Role Phone Alisha Kimball MD Primary Care Provider Reason for Referral Procedure/Equipment (Routine) - Closed Specialty Diagnoses / Procedures Referred By Contact Refer red To Contact Diagnoses Encounter for screening for malignant neoplasm of colon Alisha Kimball MD [address] [place] [address] Referral ID Status Reason Start Date Expiration Date Visits Requ ested Visits Authorized [id number] Closed 12/09/2015 03/09/2017 1 1 Scheduling Instructions Your provider has recommended an appoint ment for a screening colonoscopy with [facility] . You may call the [facility] at [phone] to schedule your colonoscopy. Screening colonoscopies are performed at [facility] in [place], as well as at [facility]. Reason for Visit Reason Comments ROUTINE HEALTH MAINTENANCE smartset Encounter Details Date Type Department Care Team Description 12/09/2015 Office Visit [facility] Alisha Kimball, [facility] (Primary Dx); Practice MD Screening for HIV (human immunodeficienc y virus); [address] Encounter for screening for malignant neoplasm of colon; [place] [address] [address] Need for hepatitis C screening test; [phone] [place], [place] Diabetes mellit us, type 2 (HRC); [address] Insomnia, unspecified type; [phone] [place] (seborrheic keratosis) (Work) Social History Tobacco [...] Where can you learn more? Go to [employer] and enter Y074 in the search box. Current as of: August 24, 2014 Content Version: 108 ?? [phone] [employer] (formerly [employer]). Colonoscopy: Before Your Procedure What is a [...] will and a durable power of assistant district attorney for health care. Bring a copy [...] not apply lotions, perfumes, deodorants, or nail pap[place] guinean. ?? Take off all jewelry and piercings. [...] Where can you learn more? Go to [employer] and enter C315 in the search box. Current as of: May 24, 2015 Content Version: 108 ?? [id number] [employer], [employer]. documented in this encounter Progress Notes Alisha [...] 50 MG tablet 7. Skin tag L91.8 77046 DESTRUC BENIGN LESIONS; UP 14 Patient counseled: [...] try another medication. See the patient instructions. Alisah Kimball MD documented in this encounter Plan of Treatment Upcoming Encounters Date Type Specialty Care Team Description 06/09/2022 Appointment General Dentistry Elaine Garcia, [facility] [address] [place] [address] (Wo rk) Scheduled Referrals Name Type Priority [...] AM 6 7:32 CDT AM CDT Narrative [facility] - 03/06/2016 12:43 PM CDT Performed at [facility], [address] [place] [address] ??[address] Alisha Kimball MD LAB_1 Performing Organization Address City/State/[facility] Phon e Number [facility] [phone] documented in this encounter Visit Diagnoses Diagnosis [...] uncontrolled documented in this encounter Care Teams Upholsterer Limousine And Hearse Relationship Specialty Start Date End Date Alisha Kimball MD PCP - General 07/08/05 [address] [place] [address] documented as of this encounter
--- OUTSIDE RECORDS SUMMARY | 2022-05-29 13:35 | XMS_ITS | Encounter Summary ---
:1955 Author Organization [employer] Address [address], [place] [address] Care Team Providers Name Role Phone Alisha Kimball MD Primary Care Provider Reason for Visit Reason Comments Refill Encounter Details Date Type Department Care Team Description 09/11/2014 Refill [facility] Alisha Kimball MD Refill [address] [facility]. [address] [place] [address] [place], [place] [phone] (Wo rk) Social History Tobacco Use Types Packs/Day Years Used Date Smoking Tobacco: Never Smokeless Tobacco: Never Alcohol Use Standard Drinks/Week Comments No 0 (1 standard drink = 0.6 oz pure alcoho l) Sex Assigned at Date Recorded Not on file documented as of this encounter Nursing Notes Erlinda Dickerson RN - 09/11/2014 12:32 PM CDT Refilled per standing orders. Erlinda Dickerson R.N. Interface, Out Surescripts Prov Query - 09/11/2014 [...] two times a day. (changed) Powered by [employer], Reference: [id number], 09/11/2014 7:15:14 AM CDT, Pool: [place] REFILL RN ([id number]) documented in this encounter Plan of Treatment Upcoming Encounters Date Type Specialty Care Team Description 06/09/2022 Appointment General Dentistry Elaine Garcia, [facility] [address] [place] [address] (Wo rk) documented as of this encounter Visit Diagnoses Not on filedocumented in this encounter Care Teams Mortgage Processing Clerk Relationship Specialty Start Date End Date Alisha Kimball MD PCP - General 07/08/05 [address] [place], [place] [phone] documented as of this encounter
--- OUTSIDE RECORDS SUMMARY | 2022-05-29 13:35 | XMS_ITS | Encounter Summary ---
:1955 Author Organization [employer] Address [address] [place] [address] Care Team Providers Name Role Phone Alisha Kimball MD Primary Care Provider Reason for Visit Reason Comments MEDICATION THERAPY MANAGEMENT SEGIP Encounter Details Date Type Department Care Team Description 11/05/2014 Office Visit [facility] Tesha Maxwell, Diabetes mellitus, type 2 (H RC) (Primary Dx); [address] PharmD Essential hypertension; [place] [address] [address] Hypercholesterolemia [phone] [place], [place] [address] Social History Tobacco Use Types Packs/Day Years [...] you have questions. Thanks, Tesha Maxwell PharmD [facility] on Wednesday & Wednesday: [phone] [facility] on & Wednesday: [phone] x2 documented in this encounter Progress Notes [...] me in 6 month(s) for follow-up. Updated PneumRx med list and reviewed medications including indications with patient. Total time spent with patient 30 minutes. Tesha Maxwell PharmD Clinical Pharmacist Medication Therapy Management Program documented in this encounter Plan of Treatment Upcoming Encounters Date Type Specialty Care Team Description 06/09/2022 Appointment General Dentistry Elaine Garcia, [facility] [address] [place], [place] [phone] (Wo rk) documented as of this encounter Visit Diagnoses Diagnosis Diabetes mellitus, type 2 (HRC) - Primar y Type II or unspecified type diabetes dinora litus without mention of complication, not stated as uncontrolled Essential hypertension (HRC) Unspecified essential hypertension Hypercholesterolemia Pure hypercholesterolemia documented in this encounter Care Teams Retail Bakery Manager Relationship Specialty Start Date End Date Alisha Kimball MD PCP - General 07/08/05 [address] [place] [address] documented as of this encounter
--- OUTSIDE RECORDS SUMMARY | 2022-05-29 13:35 | XMS_ITS | Encounter Summary ---
:1955 Author Organization [employer] Address [address] [place] [address] Care Team Providers Name Role Phone Alisha Kimball MD Primary Care Provider Encounter Details Date Type Department Care Team Description 07/27/2015 Orders Only [facility] Diabetes mellitus, type 2 [address] [facility] ([facility]) [place], [place] [address] Social History Tobacco Use [...] Dentistry Elaine Garcia, [facility] [address] [place] [address] (Wo rk) documented as of this encounter Procedures Procedure Name Priority Date/Time Associated Diagnosis Comme nts HGB A1C Routine 07/27/2015 9:21 AM Diabetes mellitus, Res ults for this BOTTOMING MACHINE OPERATOR type 2 ([facility]) procedure are i n the results section . documented in this encounter Results (ABNORMAL) HGB A1C (07/27/2015 9:21 AM BOTTOMING MACHINE OPERATOR) P athologist Signature Hgb A1c 7.2 (H) [...] Volume Laterality 07/27/2015 9:21 AM 6 9:23 BOTTOMING MACHINE OPERATOR AM BOTTOMING MACHINE OPERATOR Narrative [facility] - 07/29/2015 11:47 AM BOTTOMING MACHINE OPERATOR Performed at [facility], [address] [place] [address] ??[phone] Alisha Kimball MD LAB_1 Performing Organization Address City/State/ZIP Code Phon e Number [facility] [phone] documented in this encounter Visit Diagnoses Diagnosis Diabetes mellitus, type 2 (HRC) Type II or unspecified type diabetes dinora litus without mention of complication, not stated as uncontrolled documented in this encounter Care Teams Residence Counselor Relationship Specialty Start Date End Date Alisha Kimball MD PCP - General 07/08/05 [address] [place] [address] documented as of this encounter
--- OUTSIDE RECORDS SUMMARY | 2022-05-29 13:35 | XMS_ITS | Encounter Summary ---
:1955 Author Organization [employer] Address [address] [place] [address] Care Team Providers Name Role Phone Alisha Kimball MD Primary Care Provider Reason for Visit Reason Onset Date Comments Medication Questions 12/17/2014 Encounter Details Date Type Department Care Team Description 12/17/2014 Telephone [facility] Tesha Maxwell, Medication Questions [address] [place] [address] [address] [facility] [phone] [place], [place] [address] (Wo rk) Social History [...] back, requesting Accu-Chek Edilma be sent to [facility]. Tesha Maxwell PharmD - 12/17/2014 2:22 PM CDT Returned patient's call. Patient was in OR for a wedding and left her glucometer. [...] General Dentistry Elaine Garcia, [facility] [address] [place], [place] [phone] (Wo rk) documented as of this encounter Visit Diagnoses Not on filedocumented in this encounter Care Teams Racking Machine Operator Relationship Specialty Start Date End Date Alisha Kimball MD PCP - General 07/08/05 [address] [place] [address] documented as of this encounter
--- OUTSIDE RECORDS SUMMARY | 2022-05-29 13:35 | XMS_ITS | Encounter Summary ---
:[address] Address [address] [place] [address] Care Team Providers Name Role Phone Alisha Kimball MD Primary Care Provider Reason for Visit Reason Comments LAB TESTS, NOS Encounter Details Date Type Department Care Team Description 07/25/2015 Telephone [facility] Alisha Kimball MD LAB TESTS, NOS 8450 [facility]. [address] [place] [address] [place] [address] [phone] (Wo rk) Social History Tobacco Use Types Packs/Day Years Used Date Smoking Tobacco: Never Smokeless Tobacco: Never Alcohol Use Standard Drinks/Week Comments No 0 (1 standard drink = 0.6 oz pure alcoho l) Sex Assigned at Date Recorded Not on file documented as of this encounter Nursing Notes Francesca Cho CMA - 07/25/2015 8:07 AM CST Lab ordered NOLOGY COACH Yudy Werner - 07/25/2015 8:04 AM CST Patient on Lab Only Visit Schedule, no lab orders found in patient's chart. Please review and enter Future Lab Orders or notify the patient that lab work is not needed. Lab Only Visit scheduled for:07-27-15 After placing Future Orders, please route this Telephone Encounter to the following pool: AV LAB -A1C NOLOGY COACH documented in this encounter Plan of Treatment Upcoming Encounters Date Type Specialty Care Team Description 06/09/2022 Appointment General Dentistry Elaine Garcia, [facility] [address] [place] [address] (Wo rk) documented as of this encounter Results (ABNORMAL) HGB A1C (07/27/2015 9:21 AM TECHNOLOGY COACH) P athologist Signature Hgb A1c 7.2 (H) [...] Volume Laterality 07/27/2015 9:21 AM 6 9:23 TECHNOLOGY COACH AM TECHNOLOGY COACH Narrative [facility] - 07/29/2015 11:47 AM TECHNOLOGY COACH Performed at [facility], [address] [place] [address] ??[address] Alisha Kimball MD LAB_1 Performing Organization Address City/State/ZIP Code Phon e Number [facility] [phone] documented in this encounter Visit Diagnoses Diagnosis Diabetes mellitus, type 2 (HRC) - Primar y Type II or unspecified type diabetes dinora litus without mention of complication, not stated as uncontrolled Diabetes mellitus, type 2 (HRC) Type II or unspecified type diabetes dinora litus without mention of complication, not stated as uncontrolled documented in this encounter Care Teams Slicing Machine Tender Relationship Specialty Start Date End Date Alisha Kimball MD PCP - General 07/08/05 [address] [place] [address] documented as of this encounter
--- OUTSIDE RECORDS SUMMARY | 2022-05-29 13:35 | XMS_ITS | Encounter Summary ---
:1955 Author Organization [facility] Address [address] [place] [address] Care Team Providers Name Role Phone Alisha Kimball MD Primary Care Provider Reason for Visit Procedure/Equipment (Routine) - Incomplete Specialty Diagnoses / Procedures Referred By Contact Refer red To Contact Procedures David Kat MD US PELVIS COMPLETE W IVT [address] (RH/[facility] [place] [place] [address] Referral ID Status Reason Start Date Expiration Date Visits V isits Requested Authorized [id number] Incomplete 08/24/2014 1 1 Encounter Details Date Type Department Care Team Description 08/24/2014 Imaging [facility] Ul trasound David Kat MD [address] [place] [address] Social History Tobacco Use Types Packs/Day Years Used Date Smoking Tobacco: Never Smokeless Tobacco: Never Alcohol Use Standard Drinks/Week Comments No 0 (1 standard drink = 0.6 oz pure alcoho l) Sex Assigned at Date Recorded Not on file documented as of this encounter Plan of Treatment Upcoming Encounters Date Type Specialty Care Team Description 06/09/2022 Appointment General Dentistry Elaine Garcia, [address] [place], [place] [phone] (Wo rk) documented as of this encounter Procedures Procedure Name Priority Date/Time Associated Diagnosis Comme nts US PELVIC COMPLETE Routine 08/24/2014 3:20 PM Res ults for this W EV RUSTIC TERRAZZO SETTER procedure are i n the results section. documented in this encounter Results US PELVIS COMPLETE W IVT (RH/HSC) (08/24/2014 3:20 PM RUSTIC TERRAZZO SETTER) Anatomical Region Laterality Modality Pelvis Ultrasound Specimen (Source) Anatomical Collection Method Collection Time Re ceived Time Location / / Volume Laterality 08/24/2014 3:20 PM RUSTIC TERRAZZO SETTER Narrative 08/24/2014 4:34 PM RUSTIC TERRAZZO SETTER US PELVIS COMPLETE W/IVT (UTERUS/OVARIES) 08/24/2014 3:20 [...] Nonvisualization of the ovaries. David Kat MD [facility] US documented in this encounter Visit Diagnoses Not on filedocumented in this encounter Care Teams Preparation Operator Relationship Specialty Start Date End Date Alisha Kimball MD PCP - General 07/08/05 [address] [place] [address] documented as of this encounter
--- OUTSIDE RECORDS SUMMARY | 2022-05-29 13:35 | XMS_ITS | Encounter Summary ---
:1955 Author Organization [employer] Address [address] [address] Care Team Providers Name Role Phone Alisha Kimball MD Primary Care Provider Reason for Visit Reason Comments Refill Encounter Details Date Type Department Care Team Description 2015 Refill [facility] Alisha Remy MD Refill [address] [facility]. [address] [place] [address] [place], [place] [phone] (Wo rk) Social History Tobacco Use Types [...] - LDL: 87.0mg/dL on 10/27/2014 Powered by [employer], Reference: [id number], 2015 9:48:30 PM CDT, Pool: ARNOLD REFILL RN ([id number]) documented in this encounter Plan of Treatment Upcoming Encounters Date Type Specialty Care Team Description 06/09/2022 Appointment General Dentistry Elaine Garcia, [facility] [address] [place], [place] [phone] (Wo rk) documented as of this encounter Visit Diagnoses Not on filedocumented in this encounter Care Teams Air Brake Rigger Relationship Specialty Start Date End Date Alisha Kimball MD PCP - General 07/08/05 [address] [place] [address] documented as of this encounter
--- OUTSIDE RECORDS SUMMARY | 2022-05-29 13:35 | XMS_ITS | Encounter Summary ---
:1955 Author Organization [employer] Address [address] [place] [address] Care Team Providers Name Role Phone Alisha Kimball MD Primary Care Provider Encounter Details Date Type Department Care Team Description 11/05/2014 Orders Only [facility] Diabetes mellitus, type [address] (HRC) [place] [address] Social History Tobacco Use Types [...] Dentistry Elaine Garcia, [facility] [address] [place] [address] (Wo rk) documented as of this encounter Procedures Procedure Name Priority Date/Time Associated Diagnosis Comme nts ALBUMIN/CREAT RATIO Routine 11/05/2014 8:58 AM Diabetes mellit us, Results for this CDT type 2 (HRC) procedure are i n the results section. documented in this encounter Results MICROALB/CREAT RATIO (11/05/2014 8:58 AM CDT) [facility] gist Method Time Signature Albumin, <0.5 mg/dl [facility] Creatinine,Ur 63.6 mg/dl [facility] Alb/Creat <8 <30 mg/g [facility] Ratio, Urine, creatinine [facility] Random Specimen Anatomical Collection Method Collection Time Receive d Time (Source) Location / / Volume Laterality Urine specimen 11/05/2014 8:58 AM 015 8:59 (specimen) CDT AM CDT Narrative [facility] - 11/05/2014 1:39 PM C DT Performed at [facility], [address] [place] [address] ??[phone] Alisha Kimball MD LAB_1 Performing Organization Address City/State/ZIP Code Phon e Number [facility] [phone] documented in this encounter Visit Diagnoses Diagnosis Diabetes mellitus, type 2 (HRC) Type II or unspecified type diabetes dinora litus without mention of complication, not stated as uncontrolled documented in this encounter Care Teams Car Seat Coverer Relationship Specialty Start Date End Date Alisha Kimball MD PCP - General 07/08/05 [address] [place] [address] documented as of this encounter
--- OUTSIDE RECORDS SUMMARY | 2022-05-29 13:35 | XMS_ITS | Encounter Summary ---
:1955 Author Organization [employer] Address [address], [place] [address] Care Team Providers Name Role Phone Alisha Kimball MD Primary Care Provider Reason for Visit Reason Comments Refill Encounter Details Date Type Department Care Team Description 2015 Refill [facility] Alisha Remy MD Refill [address]50 [facility]. [address] [place] [address] [place], [place] [phone] (Wo rk) Social History Tobacco Use Types [...] DBP: 97.0mm Hg on 12/27/2014 Powered by [employer], Reference: [id number], 2015 9:48:30 PM CDT, Pool: ARNOLD REFILL RN ([id number]) documented in this encounter Plan of Treatment Upcoming Encounters Date Type Specialty Care Team Description 06/09/2022 Appointment General Dentistry Elaine Garcia, [facility] [address] [place], [place] [phone] (Wo rk) documented as of this encounter Visit Diagnoses Not on filedocumented in this encounter Care Teams Manager Market Development Relationship Specialty Start Date End Date Alisha Kimball MD PCP - General 07/08/[address] [place] [address] documented as of this encounter
--- OUTSIDE RECORDS SUMMARY | 2022-05-29 13:35 | XMS_ITS | Encounter Summary ---
:1955 Author Organization [facility] Address [address] [place] [address] Care Team Providers Name Role Phone Alisha Kimball MD Primary Care Provider Reason for Visit Reason Comments RESULTS, TEST Encounter Details Date Type Department Care Team Description 08/28/2014 Telephone Urgent Care David Rojas, RESULTS, TEST [address] [facility] MD [place] [phone] Social History Tobacco Use Types [...] call. David Kat MD 08/28/2014, 5:20 PM R AND GREASER documented in this encounter Plan of Treatment Upcoming Encounters Date Type Specialty Care Team Description 06/09/2022 Appointment General Dentistry Elaine Garcia, [facility] [address] [place], [place] [phone] (Wo rk) documented as of this encounter Visit Diagnoses Not on filedocumented in this encounter Care Teams Agricultural Extension Specialist Relationship Specialty Start Date End Date Alisha Kimball MD PCP - General 07/08/05 [address] [place] [address] documented as of this encounter
--- OUTSIDE RECORDS SUMMARY | 2022-05-29 13:35 | XMS_ITS | Encounter Summary ---
:1955 Author Organization [employer] Address [address], [place] [address] Care Team Providers Name Role Phone Alisha Kimball MD Primary Care Provider Reason for Visit Reason Comments JERSEY TREVINO MD ear pain Encounter Details Date Type Department Care Team Description 12/27/2014 Office Visit [facility] Treasure Pak (upper respiratory infection) (Primary Dx); Rakesh Mcmahon MD Sore throat [address] [address] [phone] Social History Tobacco Use Types Packs/Day Years [...] General Dentistry Elaine Garcia, [facility] [address] [place] [address] (Wo rk) documented as of this encounter Procedures Procedure Name Priority Date/Time Associated Diagnosis Comme nts STREP GRP A, RAPID Waiting 12/27/2014 10:27 AM Sore throat Re sults for this SCREEN CDT procedure are i n the results section. documented in this encounter Results STREP GRP A, RAPID SCREEN Perform a culture if negative screen?: No (12/27/2014 10:27 AM CDT) [facility] Method Time Signature Grp A Rapid Negative NEG [facility] Specimen Anatomical Collection Method Collection Time Receive d Time (Source) Location / / Volume Laterality 12/27/2014 10:27 12/27/2014 AM CDT 10:28 AM CDT Narrative [facility] - 12/27/2014 10:36 AM CDT Performed at [facility], [address] [place] [address] Treasure Pak MD LAB_1 Performing Organization Address City/State/ZIP Code Phon e Number [facility] [phone] documented in this encounter Visit Diagnoses Diagnosis URI (upper respiratory infection) - Prim levy Acute upper respiratory infections of un specified site Sore throat Acute pharyngitis documented in this encounter Care Teams Major Case Detective Relationship Specialty Start Date End Date Alisha Kimball MD PCP - General 07/08/05 [address] [place] [address] documented as of this encounter
--- OUTSIDE RECORDS SUMMARY | 2022-05-29 13:35 | XMS_ITS | Encounter Summary ---
:1955 Author Organization [facility] Address [address] [place] [address] Care Team Providers Name Role Phone Alisha Kimball MD Primary Care Provider Reason for Referral Procedure/Equipment (Routine) - Incomplete Specialty Diagnoses / Procedures Referred By Contact Refer red To Contact Procedures Provider, Not On File MAMMOGRAM SCREENING BILATERAL [address] [place] [address] Referral ID Status Reason Start Date Expiration Date Visits V isits Requested Authorized [id number] Incomplete 11/05/2014 1 1 Reason for Visit Procedure/Equipment (Routine) - Incomplete Specialty Diagnoses / Procedures Referred By Contact Refer red To Contact Procedures Provider, Not On File MAMMOGRAM SCREENING BILATERAL [address] [place] [address] Referral ID Status Reason Start Date Expiration Date Visits V isits Requested Authorized [id number] Incomplete 11/05/2014 1 1 Encounter Details Date Type Department Care Team Description 11/05/2014 Imaging [facility] ury Mammography [address] [place], [place] [phone] Social History Tobacco Use Types Packs/Day Years [...] Dentistry Elaine Garcia, [facility] [address] [place] [address] (Wo rk) documented as of [...] on filedocumented in this encounter Care Teams Communications Intern Relationship Specialty Start Date End Date Alisha Kimball MD PCP - General 07/08/05 [address] [place] [address] documented as of this encounter
--- OUTSIDE RECORDS SUMMARY | 2022-05-29 13:35 | XMS_ITS | Encounter Summary ---
:1955 Author Organization [email or web address] Address [address], [place] [address] Care Team Providers Name Role Phone Alisha [place] MD Primary Care Provider Reason for Visit Reason Comments MEDICATION THERAPY MANAGEMENT Encounter Details Date Type Department Care Team Description 07/29/2015 Office Visit [facility] Tesha Maxwell, Diabetes mellitus, type 2 (H RC) (Primary Dx); [address] PharmD Essential hypertension; [place] [address] [address] Hypercholesterolemia (HRC) [phone] [place] [address] Social History Tobacco Use Types Packs/Day Years Used Date Smoking Tobacco: Never Smokeless Tobacco: Never Alcohol Use Standard Drinks/Week Comments No 0 (1 standard drink = 0.6 oz pure alcoho l) Sex Assigned at Date Recorded Not on file documented as of this encounter Last Filed Vital Signs Vital Sign Reading Time Taken Comments Blood Pressure 135/91 07/29/2015 8:03 AM CATERING CHEF Pulse 72 07/29/2015 8:03 AM CATERING CHEF Temperature - - Respiratory Rate - - Oxygen Saturation - - Inhaled Oxygen Concentration - - Weight 84.6 kg (186 lb 9.6 oz) 07/29/2015 7:51 AM CATERING CHEF Height - - Body Mass Index 32.03 11/05/2014 8:16 AM CDT documented in this encounter Patient Instructions Patient InstructionsTesha Maxwell PharmD - 07/29/2015 7:49 AM CST 1) Your blood pressure is running slightly high today. This will continue to improve with weight loss and diet improvements. 2) I will let you know what your A1C is when it is available. 3) Your follow-up blood pressure check is scheduled for August 30 at 8:00am at the [facility] ([place]). Please call me or e-mail if you have questions. Thanks, Tesha Maxwell PharmD [employer] on Wednesday & Wednesday [facility] on & Wednesday RING CHEF documented in this encounter Progress Notes Tesha [...] answered. 5) Follow-up BP check scheduled for Wednesday, August 30 at 8:00am. Updated [facility] med list and reviewed medications including indications with patient. Total time spent with patient 30 minutes. Tesha Maxwell PharmD Clinical Pharmacist Medication Therapy Management Program RING CHEF documented in this encounter Plan of Treatment Upcoming Encounters Date Type Specialty Care Team Description 06/09/2022 Appointment General Dentistry Elaine Garcia, [facility] [address] [place] [address] (Wo rk) documented as of this encounter Visit Diagnoses Diagnosis Diabetes mellitus, type 2 (HRC) - Primar y Type II or unspecified type diabetes dinora litus without mention of complication, not stated as uncontrolled Essential hypertension (HRC) Unspecified essential hypertension Hypercholesterolemia Pure hypercholesterolemia documented in this encounter Care Teams Adobe Maker Relationship Specialty Start Date End Date Alisha [place] MD PCP - General 07/08/05 [address] [place], [place] [id number] documented as of this encounter
--- OUTSIDE RECORDS SUMMARY | 2022-05-29 13:35 | XMS_ITS | Encounter Summary ---
:1955 Author Organization [facility] Address [address], [place] [address] Care Team Providers Name Role Phone Alisha [place] MD Primary Care Provider Reason for Visit Reason Comments PHARMACIST COUNSELING diabetes Encounter Details Date Type Department Care Team Description 05/23/2015 Pharmacy [facility], [facility] on PHARMACIST COUNSELING Pharmacy [address] [facility] (diabetes) [address] [place], [place] [address] [phone] (Wo rk) Social History Tobacco Use Types [...] be closed. Brenton Pickard 05/24/2015, 2:54 PM IAGE SETTER Brenton Pickard RPh - 05/23/2015 12:53 PM CST Topic / Disease State: Diabetes: Clinic Pharmacy Diabetes Encounter Notes Loc Velasco was at [facility] to speak with the pharmacist about [...] twocopies of the Rx Diabetes Report Card (39336). One copy will be provided to the patient and the second copy will be used to complete Epic documentation after patient consultation occurs. Patient at Goal? No. Please document using .rphdoc after speaking with the patient. IAGE SETTER documented in this encounter Plan of Treatment Upcoming Encounters Date Type Specialty Care Team Description 06/09/2022 Appointment General Dentistry Elaine Garcia, [facility] [address] [place] [address] (Wo rk) documented as of this encounter Visit Diagnoses Not on filedocumented in this encounter Care Teams Tie Mill Operator Relationship Specialty Start Date End Date Alisha [place] MD PCP - General 07/08/05 [address] [place], [place] [phone] documented as of this encounter
--- OUTSIDE RECORDS SUMMARY | 2022-05-29 13:35 | XMS_ITS | Encounter Summary ---
:1955 Author Organization [facility] Address [address] [place] [address] Care Team Providers Name Role Phone Alisha [place] MD Primary Care Provider Reason for Visit Reason Comments ROUTINE HEALTH MAINTENANCE Diabetic Foot Assessment Health Maintanence Declined hiv and hep c Encounter Details Date Type Department Care Team Description 11/05/2014 Office Visit [facility] Alisha [place], [facility] (Primary Dx); Practice MD Diabetes mellitus, type 2 (HRC); [address] [place] [place] [address] [place], [place] [phone] Social History Tobacco Use Types Packs/Day Years [...] a Lab Onlyappointment online or by calling [phone]. For blood pressure: Hold the amlodipine for [...] Where can you learn more? Go to [employer]/Cloudvu and enter Y074 in the search box. Current as of: October 26, 2013 Content Version: 10.3 ?? [id number] [employer] documented in this encounter Progress Notes Alisha [...] Dentistry Elaine Garcia, [facility] [address] [place] [address] (Wo rk) documented as of this encounter Results MICROALB/CREAT RATIO (11/05/2014 8:58 AM CDT) [facility] Method Time Signature Albumin, <0.5 mg/dl [facility] Urine, Random [facility] Creatinine,Ur 63.6 mg/dl [facility] Alb/Creat <8 <30 mg/g [facility] Ratio, Urine, creatinine LABORATORIES Random Specimen Anatomical Collection Method Collection Time Receive d Time (Source) Location / / Volume Laterality Urine specimen 11/05/2014 8:58 AM 015 8:59 (specimen) CDT AM CDT Narrative [facility] - 11/05/2014 1:39 PM C DT Performed at [facility], [address] [place] [address] ??[phone] Alisha [place] MD LAB_1 Performing Organization Address City/State/[facility] Code Phon e Number [facility] [phone] documented in this encounter Visit Diagnoses Diagnosis [...] uncontrolled documented in this encounter Care Teams Hearing Aid Specialist Relationship Specialty Start Date End Date Alisha [place] MD PCP - General 07/08/05 [address] [place] [address] documented as of this encounter
--- OUTSIDE RECORDS SUMMARY | 2022-05-29 13:35 | XMS_ITS | Encounter Summary ---
:1955 Author Organization [employer] Address [address], [place] [address] Care Team Providers Name Role Phone Alisha [place] MD Primary Care Provider Encounter Details Date Type Department Care Team Description 10/27/2014 Orders Only [place] Diabetes mellit us, type 2 (HR); Laboratory Hypercholesterolemia [address] [place] [address] Social History Tobacco Use Types [...] Dentistry Elaine Garcia, [facility] [address] [place] [address] (Wo rk) documented as of [...] DIRECT LDL(IF NEEDED) (10/27/2014 9:03 AM CDT) [facility] Method Time Signature Hours Fasting 12 [...] - 10/29/2014 12:02 PM CDT [facility], [address] [place] [address] ??[phone] Alisha [place] MD LAB_1 Performing Organization Address City/[facility] Phon e Number [facility] [phone] (ABNORMAL) HGB A1C (10/27/2014 9:03 AM CDT) [...] - 10/29/2014 12:07 PM CDT Performed at [facility], [address] [place] [address] Alisha [place] MD LAB_1 Performing Organization Address City/[facility] Phon e Number [facility] [phone] documented in this encounter Visit Diagnoses Diagnosis Diabetes mellitus, type 2 (HRC) Type II or unspecified type diabetes dinora litus without mention of complication, not stated as uncontrolled Hypercholesterolemia Pure hypercholesterolemia documented in this encounter Care Teams Manager Chemical Relationship Specialty Start Date End Date Alisha [place] MD PCP - General 07/08/05 [address] [place] [address] documented as of this encounter
--- OUTSIDE RECORDS SUMMARY | 2022-05-29 13:35 | XMS_ITS | Encounter Summary ---
:1955 Author Organization [facility] Address [address] [place] [address] Care Team Providers Name Role Phone Alisha [place] MD Primary Care Provider Reason for Visit Reason Comments Medication Questions Encounter Details Date Type Department Care Team Description 01/02/2015 Telephone [facility] Alisha [place] MD Medication Questions Medicine [address] [place] [address] [place], [place] [phone] Social History Tobacco Use Types Packs/Day Years [...] new Accucheck Plus lancet device. 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 Tesha Maxwell PharmD 01/02/2015, 10:37 [...] General Dentistry Elaine Garcia, [facility] [address] [place] [address] (Wo rk) documented as of this encounter Visit Diagnoses Not on filedocumented in this encounter Care Teams Gasateria Attendant Relationship Specialty Start Date End Date Alisha [place] MD PCP - General 07/08/05 [address] [place], [place] [phone] documented as of this encounter
--- OUTSIDE RECORDS SUMMARY | 2022-05-29 13:36 | XMS_ITS | Encounter Summary ---
:1955 Author Organization [facility] Address [address] [place] [address] Care Team Providers Name Role Phone Alisha [place] MD Primary Care Provider Reason for Referral Procedure/Equipment (Routine) - Incomplete Specialty Diagnoses / Procedures Referred By Contact Refer red To Contact Procedures David Kat MD US PELVIS COMPLETE W IVT [address] (RH/HSC) [place] [address] Referral ID Status Reason Start Date Expiration Date Visits V isits Requested Authorized [id number] Incomplete 08/24/2014 1 1 ER OPERATORS SUPERVISOR Reason for Visit Reason Comments ABDOMINAL PAIN pain in lt overy area, hx hy sterectomy, mother had cervical cancer Encounter Details Date Type Department Care Team Description 08/24/2014 Office Visit [facility] David Kat Abdominal pa in, generalized (Primary Dx); Rakesh Lunsford MD Pelvic pain in female; [address] Abdominal bloating [place], [place] [phone] Social History Tobacco Use Types Packs/Day Years Used Date Smoking Tobacco: Never Smokeless Tobacco: Never Alcohol Use Standard Drinks/Week Comments No 0 (1 standard drink = 0.6 oz pure alcoho l) Sex Assigned at Date Recorded Not on file documented as of this encounter Last Filed Vital Signs Vital Sign Reading Time Taken Comments Blood Pressure 133/88 08/24/2014 9:35 AM BAILER OPERATORS SUPERVISOR Pulse 78 08/24/2014 9:35 AM BAILER OPERATORS SUPERVISOR Temperature 36.1 ??C (97 ??F) 08/24/2014 9:35 AM BAILER OPERATORS SUPERVISOR Respiratory Rate 14 08/24/2014 9:35 AM BAILER OPERATORS SUPERVISOR Oxygen Saturation 96% 08/24/2014 9:35 AM BAILER OPERATORS SUPERVISOR Inhaled Oxygen Concentration - - Weight 77.1 kg (170 lb) 08/24/2014 9:35 AM BAILER OPERATORS SUPERVISOR Height 162.6 cm (5' 4) 08/24/2014 9:35 AM BAILER OPERATORS SUPERVISOR Body Mass Index 29.18 08/24/2014 9:35 AM BAILER OPERATORS SUPERVISOR documented in this encounter Patient Instructions Patient [...] Where can you learn more? Go to [employer]/TribeHired and enter E907 in the search box. Current as of: December 06, 2013 Content Version: 10.3 ?? [id number] Stupil. ER OPERATORS SUPERVISOR documented in this encounter Progress Notes David [...] No cervix present. Right adnexal tenderness (Sabina, DIGITAL CONTENT MARKETING MANAGER present). EXT: No C/C/E. SKIN: Warm, dry. No apparent rashes or lesions. ASSESSMENT/PLAN: 1) Abdominal/pelvic pain - Check pelvic and abdominal US. Check lab work (See EPIC orders). Follow up in 2-[address] abdomen recommended, patient declined at this time. David Kat MD 08/24/2014, 9:58 AM ER OPERATORS SUPERVISOR documented in this encounter Plan of Treatment Upcoming Encounters Date Type Specialty Care Team Description 06/09/2022 Appointment [facility] [address] [place] [address] (Wo rk) documented as of this encounter Results US PELVIS COMPLETE W IVT (RH/HSC) (08/24/2014 3:20 PM BAILER OPERATORS SUPERVISOR) Anatomical Region Laterality Modality Pelvis Ultrasound Specimen (Source) Anatomical Collection Method Collection Time Re ceived Time Location / / Volume Laterality 08/24/2014 3:20 PM BAILER OPERATORS SUPERVISOR Narrative 08/24/2014 4:34 PM BAILER OPERATORS SUPERVISOR US PELVIS COMPLETE W/IVT (UTERUS/OVARIES) 08/24/2014 3:20 [...] of the ovaries. David Kat MD RAD US H. PYLORI IGG (08/24/2014 10:24 AM BAILER OPERATORS SUPERVISOR) [facility] gist Method Time Signature H. pylori IgG Negative NEG [facility] Specimen Anatomical Collection Method Collection Time Receive d Time (Source) Location / / Volume Laterality 08/24/2014 10:24 08/24/2014 AM BAILER OPERATORS SUPERVISOR 10:25 AM BAILER OPERATORS SUPERVISOR Narrative [facility] - 08/27/2014 2:[address] Performed at [facility], [address] [place] [address] ??[phone] David Kat MD LAB_1 Performing Organization Address City/State/ZIP Code Phon e Number [facility] [phone] URINE CULTURE (08/24/2014 10:24 AM BAILER OPERATORS SUPERVISOR) Component Value Ref Test Analysis Performed At [facility] Contour Range Method Time Signature Specimen Urine [facility] Description Midstream [facility] Special Unspecified [facility] Requests [facility] Culture No Growth [facility] After 1 Day [facility] Report Status Final [facility] 08/25/2014 LAB[facility]ATORIES Specimen Anatomical Collection Method Collection Time Receive d Time (Source) Location / / Volume Laterality 08/24/2014 10:24 08/24/2014 AM BAILER OPERATORS SUPERVISOR 10:25 AM BAILER OPERATORS SUPERVISOR Narrative [facility] - 08/25/2014 1:[address] Performed at [facility] , [address] [place] [id number] David Kat MD LAB_1 Performing Organization Address City/[facility]/ZIP Code Phon e Number [facility] [phone] (ABNORMAL) UA WITH MICRO (08/24/2014 10:24 AM BAILER OPERATORS SUPERVISOR) [facility] Method Time Signature Urine Color Yellow [...] / Volume Laterality 08/24/2014 10:24 08/24/2014 AM BAILER OPERATORS SUPERVISOR 10:25 AM BAILER OPERATORS SUPERVISOR Narrative [facility] - 08/24/2014 10:37 AM BAILER OPERATORS SUPERVISOR Performed at [facility], [address] [place], [place] ??[address] David Kat MD LAB_1 Performing Organization Address [facility] Phon e Number [facility] [phone] (ABNORMAL) BASIC METABOLIC PANEL (08/24/2014 10:24 AM BAILER OPERATORS SUPERVISOR) [facility] Method Time Signature Sodium 143 135 - [...] / Volume Laterality 08/24/2014 10:24 08/24/2014 AM BAILER OPERATORS SUPERVISOR 10:25 AM BAILER OPERATORS SUPERVISOR Narrative [facility] - 08/24/2014 2:[address] Performed at [facility], [address] [place] [address] ??[phone] David aKt MD LAB_1 Performing Organization Address [facility] Phon e Number [facility] [phone] (ABNORMAL) C-REACTIVE PROTEIN (08/24/2014 10:24 AM BAILER OPERATORS SUPERVISOR) [facility] Method Time Signature C-Reactive 5.7 (H) 0.0 - 0.9 [facility] Protein mg/dl LABORATORIES Comment: Note: results are expressed in mg/dL. Specimen Anatomical Collection Method Collection Time Receive d Time (Source) Location / / Volume Laterality 08/24/2014 10:24 08/24/2014 AM BAILER OPERATORS SUPERVISOR 10:25 AM BAILER OPERATORS SUPERVISOR Narrative [facility] - 08/24/2014 2:[address] Performed at [facility], [address] [place] [phone] David Kat MD LAB_1 Performing Organization Address City/State/ZIP Code Phon e Number [facility] [phone] HEMOGRAM/PLTS/DIFF (08/24/2014 10:24 AM BAILER OPERATORS SUPERVISOR) [facility] Signature WBC 8.2 4.0 - 11.0 [...] [facility] Lymph 24 % [facility] Pine 7 % [facility] Eos 2 % [facility] Baso 1 % [facility] Neutrophil 5.4 1.8 - 7.7 [facility] Absolute k/ul LAB[facility] Lymph Absolute 2.0 1.0 - 4.8 [facility] k/ul [facility] Pine Absolute 0.6 0.1 - 0.7 [facility] k/ul [facility] Eos Absolute 0.2 0.0 - 0.5 [facility] k/ul [facility] Baso Absolute 0.1 0.0 - 0.2 [facility] k/ul [facility] Specimen Anatomical Collection Method Collection Time Receive d Time (Source) Location / / Volume Laterality 08/24/2014 10:24 08/24/2014 AM BAILER OPERATORS SUPERVISOR 10:25 AM BAILER OPERATORS SUPERVISOR Narrative [facility] - 08/24/2014 10:39 AM BAILER OPERATORS SUPERVISOR Performed at [facility], [address] [place], [place] ??[address] David Kat MD LAB_1 Performing Organization Address City/[facility] Code Phon e Number [facility] [phone] documented in this encounter Visit Diagnoses Diagnosis Abdominal pain, generalized - Primary Pelvic pain in female Unspecified symptom associated with fema le genital organs Abdominal bloating Flatulence, eructation, and gas pain Abdominal pain, generalized documented in this encounter Care Teams Machine Assembler Supervisor Relationship Specialty Start Date End Date Alisha [place] MD PCP - General 07/08/05 [address] [place] [address] documented as of this encounter
--- OUTSIDE RECORDS SUMMARY | 2022-05-29 13:36 | XMS_ITS | Encounter Summary ---
:1955 Author Organization [email or web address] Address [address] [place] [address] Care Team Providers Name Role Phone Alisha [place] MD Primary Care Provider Reason for Visit Reason Onset Date Comments LAB TESTS, NOS 09/22/2013 Encounter Details Date Type Department Care Team Description 09/22/2013 Telephone [facility] maxi Alisha [place] MD LAB TESTS, NOS [address] [place] [address] [place] [address] [phone] (Wo rk) Social History Tobacco Use Types [...] this Telephone Encounter to the following pool: [facility]. Thank you documented in this encounter Plan of Treatment Upcoming Encounters Date Type Specialty Care Team Description 06/09/2022 Appointment General Dentistry Elaine Garcia, [facility] [address] [place] [address] (Wo rk) documented as of this encounter Results HEMOGRAM/PLTS (10/30/2013 [...] PM C DT Performed at [facility], [address] [place] [phone] Alisha [place] MD LAB_1 Performing Organization Address City/State/ZIP Code Phon e Number [facility] [phone] TSH, SENSITIVE with FT4, FT3 (if needed) (10/30/2013 7:37 AM CDT) athologist Signature TSH, with 1.465 0.300 - [facility] Reflex 5.000 LAB[facility]ATORIES uIU/ml Specimen Anatomical Collection Method Collection Time Receive d Time (Source) Location / / Volume Laterality 10/30/2013 7:37 AM 4 7:39 CDT AM CDT Narrative [facility] - 10/30/2013 2:45 PM C DT Performed at [facility], [address] [place] [address] ??[phone] Alisha [place] MD LAB_1 Performing Organization Address City/[facility]/ZIP Code Phon e Number [facility] [phone] SODIUM (10/30/2013 7:37 AM CDT) athologist Signature Sodium 140 135 - 145 [facility] mmol/L Specimen Anatomical Collection Method Collection Time Receive d Time (Source) Location / / Volume Laterality 10/30/2013 7:37 AM 4 7:39 CDT AM CDT Narrative [facility] - 10/30/2013 2:04 PM C DT Performed at [facility], [address] [place] [address] ??[phone] Alisha [place] MD LAB_1 Performing Organization Address City/[facility] Code Phon e Number [facility] [phone] POTASSIUM (10/30/2013 7:37 AM CDT) athologist Signature Potassium 4.2 3.5 - 5.3 [facility] mmol/L Specimen Anatomical Collection Method Collection Time Receive d Time (Source) Location / / Volume Laterality 10/30/2013 7:37 AM 4 7:39 CDT AM CDT Narrative [facility] - 10/30/2013 2:04 PM C DT Performed at [facility], [address] [place] [address] ??[phone] Alisha [place] MD LAB_1 Performing Organization Address City/[facility]/ZIP Code Phon e Number [facility] [phone] ALT (SGPT) (10/30/2013 7:37 AM CDT) athologist Signature ALT (SGPT) 52 0 - 69 U/L [facility] Specimen Anatomical Collection Method Collection Time Receive d Time (Source) Location / / Volume Laterality 10/30/2013 7:37 AM 4 7:39 CDT AM CDT Narrative [facility] - 10/30/2013 2:04 PM C DT Performed at [facility], [address] [place] [address] ??[phone] Alisha [place] MD LAB_1 Performing Organization Address City/[facility]/ZIP Code Phon e Number [facility] [phone] MICROALB/CREAT RATIO (10/30/2013 7:37 AM CDT) Patholo [...] 10/30/2013 1:21 PM C DT Performed at [facility], [address] [place] [address] ??[phone] Alisha Kimball MD LAB_1 Performing Organization Address [facility]/ZIP Code Phon e Number [facility] [phone] CREATININE / GFR (10/30/2013 7:37 AM CDT) Analysis Performed At Patho logist [...] 10/30/2013 2:04 PM C DT Performed at [facility], [address] [place] [address] ??[phone] Alisha [place] MD LAB_1 Performing Organization Address City/[facility]/ZIP Code Phon e Number [facility] [phone] (ABNORMAL) LIPID PANEL AND DIRECT LDL(IF NEEDED) [...] PM C DT Performed at [facility], [address] [place] [address] ??[phone] Alisha [place] MD LAB_1 Performing Organization Address [facility] Phon e Number [facility] [phone] (ABNORMAL) HGB A1C (10/30/2013 7:37 AM CDT) [...] PM C DT Performed at [facility], [address] [place] [address] ??[phone] Alisha [place] MD LAB_1 Performing Organization Address City/[facility] Phon e Number [facility] [phone] documented in this encounter Visit Diagnoses Diagnosis [...] anemia documented in this encounter Care Teams Hosiery Pairer Relationship Specialty Start Date End Date Alisha [place] MD PCP - General 07/08/05 [address] [place] [address] documented as of this encounter
--- OUTSIDE RECORDS SUMMARY | 2022-05-29 13:36 | XMS_ITS | Encounter Summary ---
:1955 Author Organization [facility] Address [address], [place] [address] Care Team Providers Name Role Phone Alisha Kimball MD Primary Care Provider Reason for Visit Reason Onset Date Comments Pharmacy 12/16/2012 diabetes Encounter Details Date Type Department Care Team Description 12/16/2012 Pharmacy [facility] Daria Vallecillo, Pharmacy (diabetes) [address] [facility] [place] [address] [facility] [phone] [place], [place] [address] (Wo rk) Social History [...] Appointment General Dentistry Elaine Garcia, [facility] [address] [place] [address] (Wo rk) documented as of this encounter Visit Diagnoses Not on filedocumented in this encounter Care Teams Digital Measurement Advisor Relationship Specialty Start Date End Date Alisha Kimball MD PCP - General 07/08/05 [address] [place], [place] [phone] documented as of this encounter
--- OUTSIDE RECORDS SUMMARY | 2022-05-29 13:36 | XMS_ITS | Encounter Summary ---
:1955 Author Organization [facility] Address [address], [place] [address] Care Team Providers Name Role Phone Alisha Kimball MD Primary Care Provider Reason for Visit Reason Comments Refill Encounter Details Date Type Department Care Team Description 12/09/2013 Refill [facility] Alisha Kimball MD Refill [address] [facility]. [address] [place] [address] [place], [place] [phone] (Wo rk) Social History Tobacco Use Types [...] - LDL: 78.0mg/dL on 10/30/2013 Powered by [employer], Reference: [id number], 12/09/2013 2:55:15 PM CDT documented in this encounter Plan of Treatment Upcoming Encounters Date Type Specialty Care Team Description 06/09/2022 Appointment General Dentistry Elaine Garcia, [facility] [address] [place] [address] (Wo rk) documented as of this encounter Visit Diagnoses Diagnosis Unspecified essential hypertension (HRC) Unspecified essential hypertension Pure hypercholesterolemia documented in this encounter Care Teams Environmental Services Lead Relationship Specialty Start Date End Date Alisha Kimball MD PCP - General 07/08/05 [address] [place] [address] documented as of this encounter
--- OUTSIDE RECORDS SUMMARY | 2022-05-29 13:36 | XMS_ITS | Encounter Summary ---
:1955 Author Organization [facility] Address [address] [place] [address] Care Team Providers Name Role Phone Alisha Kimball MD Primary Care Provider Reason for Visit Reason Comments Diabetic Exam, Yearly Doesn't want a refraction to day. Complains of dry,red, burning, and itchy eys in the morning . Uses pure moist CL all purpose clear for rewetting drops.2- 3 times daily and clear eyes complete 203 times daily. Sh has used thes for about 1 year and it has not gotten any better .. She has type 2 diabetes, her blood surgers are good. She takes oral medication for control. No problems with distance vi bobbi. Wear OTC readers fpr the computer and reading. Encounter Details Date Type Department Care Team Description 06/30/2013 Office Visit [facility] Lebron Alfaro, Type II or unspecified type diabetes mellitus without mention of complication, not stated as uncontrolled (Primary Dx); [address] OD Tear film insufficiency, uns pecified [place], [place] [id number] Social History Tobacco Use Types Packs/Day Years Used Date Smoking Tobacco: Never Smokeless Tobacco: Never Alcohol Use Standard Drinks/Week Comments No 0 (1 standard drink = 0.6 oz pure alcoho l) Sex Assigned at Date Recorded Not on file documented as of this encounter Patient Instructions Patient InstructionsLebron Alfaro, OD - 06/30/2013 2:04 PM CST Diabetes and the Eyes Over time, high [...] pressure and visiting your eye doctor regularly. Dry Eye Your eyes constantly produce tears at a slow and steady rate so that they stay moist and comfortable. Some people are not able to produce enough tears or the appropriate quality of tears to keep their eyes healthy and comfortable. This condition is known as dry eye. Symptoms of dry eye include scratchiness, stinging, itching, stringy mucus in the eyes, and blurry vision. Sometimes people with dry eye will experience excess tearing. This is the eye???s response to the discomfort from dry eye. When the eyes get irritated, the gland that makes tears releases a larger thanusual volume of tears, which overwhelm the tear drainage system. These excess tears then overflow from your eyes. Dry eye often increases with age as tear production slows. For women, this is especially true after menopause. Other factors that may predispose you to dry eye include certain medications, prolonged computer use, contact lens wear, a history of ocular surgery, and certain systemic diseases including diabetes, thyroid disease, or rheumatoid arthritis. Your eye care provider can diagnose dry eye by examining your eyes. Diagnostic drops are used to check for patterns of dryness on the eye???s surface. Sometimes specialized tests are indicated to measure tear production. Treatments for dry eye include eye drops called artificial tears to lubricate the eyes and help maintain moisture. Your eye care provider may conserve your tears by closing the channels through which your tears drain. You can also try to prevent tears from evaporating by avoiding wind and dry air. Smoking irritates dry eyes and should be avoided. Artificial Tears Artificial tears are an effective treatment for symptoms from dry and irritated eyes. It is important to use your artificial tears FREQUENTLY, before symptoms occur, especially before extended times ofreading, computer work, driving, or outdoor activities. The most common cause of continued symptoms from dry and irritated eyes is failure to use these lubricants enough to bring about and maintain adequate relief. Because these drops cannot be used too often, it is safe to increase their frequency asyour symptoms change. The usual dose is 2-4 times a day. These artificial tears can be purchased [id number] at our pharmacy and most discount stores. Use them frequently until your symptoms are controlled, or as directed by your doctor. For long-term therapy, experiment by slowly reducing the number of installations each day to determine the minimum treatment needed to keep you symptom-free. For most people, any of the following brands of artificial tear work well: Systane, Blink Tears, Refresh, Genteal, Theratears Some people are sensitive to the chemical preservatives in the drops, and need to use preservative-free tears. While more expensive, they may be better tolerated and can be used more frequently. They come in a break open vial. Once open, this vial should be kept clean (not in pocket or purse) and thrown away after 8 hours. Celluvisc, Cellufresh, Refresh Plus, Theratears A third type of lubricant is ointment or gel. While they are thicker and can blur the vision temporarily, they are usually the most effective in healing any damage to the eye's surface. Often they are placed in the eye right at bedtime to provide lubrication when sleeping, particularly if one's eyes do not close completely. Genteal gel, Blink Gel Tears, Refresh PM, Puralube For treating dry eyes, avoid products that advertise to get the red out. These have ingredients thattake the red out only temporarily but then actually increase dryness of the eyes. FITS ADMINISTRATOR documented in this encounter Progress Notes Lebron Alfaro, OD - 06/30/2013 2:31 PM CST HPI Chief Complaint Patient presents with ??? Diabetic Exam, Yearly Doesn't want a refraction today. Complains of dry,red, burning, and itchy eys in the morning. Uses pure moist CL all purpose clear for rewetting drops.2- 3 times daily and clear eyes complete 203 times daily. Sh has used thes for about 1 year and it has not gotten any better.. She has type 2 diabetes, her blood surgers are good. She takes oral medication for control. No problems with distance vision. Wear OTC readers fpr the computer and reading. Routine Eye Exam Loc Velasco is a 58 yr year old female here for a routine diabetic eye exam. The last eye exam was on 04/2010 at [facility] with Dr. Alfaro Diabetes is Type II (adult) and is managed by oral meds. HGB A1C (%) Date Value 01/13/2013 7.4* 12/16/2012 8.1* 10/24/2012 10.5* Assessment No evidence of diabetic retinopathy, dry eyes Plan Artificial tears as needed Return to clinic in 1 year(s) Lebron Alfaro, RAJEEV FITS ADMINISTRATOR documented in this encounter Plan of Treatment Upcoming Encounters Date Type Specialty Care Team Description 06/09/2022 Appointment General Dentistry Elaine Garcia, [facility] [address] [place], [place] [phone] (Wo rk) documented as of this encounter Visit Diagnoses Diagnosis Type II or unspecified type diabetes dinora litus without mention of complication, not stated as uncontrolled (HRC) - Primary Type II or unspecified type diabetes dinora litus without mention of complication, not stated as uncontrolled Tear film insufficiency, unspecified documented in this encounter Care Teams Life Science Technical Officer Relationship Specialty Start Date End Date Alisha Kimball MD PCP - General 07/08/05 [address] [place] [address] documented as of this encounter
--- OUTSIDE RECORDS SUMMARY | 2022-05-29 13:36 | XMS_ITS | Encounter Summary ---
:1955 Author Organization [employer] Address [address] [place] [address] Care Team Providers Name Role Phone Alisha Kimball MD Primary Care Provider Reason for Visit Reason Comments MEDICATION THERAPY MANAGEMENT SEGIP Encounter Details Date Type Department Care Team Description 05/21/2014 Office Visit [facility] Tesha Maxwell, Diabetes mellitus, type 2 (P rimary Dx); [address] PharmD Hypertension; [place] [address] [address] Hypercholesterolemia [phone] [place], [place] [phone] Social History Tobacco Use Types Packs/Day Years Used Date Smoking Tobacco: Never Smokeless Tobacco: Never Alcohol Use Standard Drinks/Week Comments No 0 (1 standard drink = 0.6 oz pure alcoho l) Sex Assigned at Date Recorded Not on file documented as of this encounter Last Filed Vital Signs Vital Sign Reading Time Taken Comments Blood Pressure 126/89 05/21/2014 10:42 AM LAB ASSISTANT Pulse 83 05/21/2014 10:42 AM LAB ASSISTANT Temperature - - Respiratory Rate - - [...] you have questions. Thanks, Tesha Maxwell PharmD [facility] on Wednesday & Wednesday: [phone] [facility] on & Wednesday: [phone] ASSISTANT documented in this encounter Progress Notes Tesha Maxwell PharmD - 05/21/2014 10:23 AM CST S Loc Velasco was referred to Medication Therapy Management Services by [facility] for diabetes management/education. Melia presents today for general medication review and enrollment into the SEGIP program. She had her A1C drawn earlier [...] month(s) for follow-up, sooner if needed. Updated [facility] med list and reviewed medications including indications with patient. Total time spent with patient 15 minutes. Tesha Maxwell PharmD Clinical Pharmacist Medication Therapy Management Program ASSISTANT documented in this encounter Plan of Treatment Upcoming Encounters Date Type Specialty Care Team Description 06/09/2022 Appointment General Dentistry Elaine Garcia, [facility] [address] [place], [place] [phone] (Wo rk) documented as of this encounter Visit Diagnoses Diagnosis Diabetes mellitus, type 2 (HRC) - Primar y Type II or unspecified type diabetes dinora litus without mention of complication, not stated as uncontrolled Hypertension (HRC) Unspecified essential hypertension Hypercholesterolemia Pure hypercholesterolemia documented in this encounter Care Teams Loop Drier Operator Relationship Specialty Start Date End Date Alisha Kimball MD PCP - General 07/08/05 [address] [place] [address] documented as of this encounter
--- OUTSIDE RECORDS SUMMARY | 2022-05-29 13:36 | XMS_ITS | Encounter Summary ---
:1955 Author Organization [employer] Address [address] [place] [address] Care Team Providers Name Role Phone Alisha Kimball MD Primary Care Provider Encounter Details Date Type Department Care Team Description 10/30/2013 Orders Only [facility] Diabetes mellitus, type 2; [address] Hypercholesterolemia; [place] [address] Hypertension; [phone] Screening for t hyroid disorder; Screening, anem [...] General Dentistry Elaine Garcia, [facility] [address] [place] [address] (Wo rk) documented as of [...] 1:03 PM C DT Performed at [facility], [address] [place] [address] ??[phone] Alisha Kimball MD LAB_1 Performing Organization Address City/State/ZIP Code Phon e Number [facility] [phone] TSH, SENSITIVE with FT4, FT3 (if needed) (10/30/2013 7:37 AM CDT) P athologist Signature TSH, with 1.465 0.300 - [facility]lex 5.000 [facility]IES uIU/ml Specimen Anatomical Collection Method Collection Time Receive d Time (Source) Location / / Volume Laterality 10/30/2013 7:37 AM 4 7:39 CDT AM CDT Narrative [facility] - 10/30/2013 2:45 PM C DT Performed at [facility], [address] [place] [address] ??[id number] Alisha Kimball MD LAB_1 Performing Organization Address City/[facility]/ZIP Code Phon e Number [facility] [phone] SODIUM (10/30/2013 7:37 AM CDT) athologist Signature Sodium 140 135 - 145 [facility] mmol/L Specimen Anatomical Collection Method Collection Time Receive d Time (Source) Location / / Volume Laterality 10/30/2013 7:37 AM 4 7:39 CDT AM CDT Narrative [facility] - 10/30/2013 2:04 PM C DT Performed at [facility], [address] [place] [address] ??[phone] Alisha Kimball MD LAB_1 Performing Organization Address [facility] Phon e Number [facility] [phone] POTASSIUM (10/30/2013 7:37 AM CDT) athologist Signature Potassium 4.2 3.5 - 5.3 [facility] mmol/L Specimen Anatomical Collection Method Collection Time Receive d Time (Source) Location / / Volume Laterality 10/30/2013 7:37 AM 4 7:39 CDT AM CDT Narrative [facility] - 10/30/2013 2:04 PM C DT Performed at [facility], [address] [place] [address] ??[phone] Alisha Kimball MD LAB_1 Performing Organization Address City/[facility]/ZIP Code Phon e Number [facility] [phone] ALT (SGPT) (10/30/2013 7:37 AM CDT) athologist Signature ALT (SGPT) 52 0 - 69 U/L [facility] Specimen Anatomical Collection Method Collection Time Receive d Time (Source) Location / / Volume Laterality 10/30/2013 7:37 AM 4 7:39 CDT AM CDT Narrative [facility] - 10/30/2013 2:04 PM C DT Performed at [facility], [address] [place] [address] ??[phone] Alisha Kimball MD LAB_1 Performing Organization Address [facility] Phon e Number [facility] [phone] MICROALB/CREAT RATIO (10/30/2013 7:37 AM CDT) Patholo [...] 10/30/2013 1:21 PM C DT Performed at [facility], [address] [place] [address] ??[phone] Alisha Kimball MD LAB_1 Performing Organization Address City/[facility] Phon e Number [facility] [phone] CREATININE / GFR (10/30/2013 7:37 AM CDT) [...] 2:04 PM C DT Performed at [facility], [address] [place] [address] ??[phone] Alisha Kimball MD LAB_1 Performing Organization Address City/[facility]/ZIP Code Phon e Number [facility] [phone] (ABNORMAL) LIPID PANEL AND DIRECT LDL(IF NEEDED) (10/30/2013 7:37 AM CDT) [facility] Method Time Signature Hours Fasting 12 [...] 10/30/2013 2:04 PM C DT Performed at [facility], [address] [place] [address] ??[phone] Alisha Kimball MD LAB_1 Performing Organization Address [facility] Phon e Number [facility] [phone] (ABNORMAL) HGB A1C (10/30/2013 7:37 AM CDT) [...] 10/30/2013 1:58 PM C DT Performed at [facility], [address] [place] [address] ??[phone] Alisha Kimball MD LAB_1 Performing Organization Address [facility]/ZIP Code Phon e Number [facility] [phone] documented in this encounter Visit Diagnoses Diagnosis Diabetes mellitus, type 2 (HRC) Type II or unspecified type diabetes dinora litus without mention of complication, not stated as uncontrolled Hypercholesterolemia Pure hypercholesterolemia Hypertension (HRC) Unspecified essential hypertension Screening for thyroid disorder Screening, anemia, deficiency, iron Screening for iron deficiency anemia documented in this encounter Care Teams Manager Strategic Marketing Relationship Specialty Start Date End Date Alisha Kimball MD PCP - General 07/08/05 [address] [place] [address] documented as of this encounter
--- OUTSIDE RECORDS SUMMARY | 2022-05-29 13:36 | XMS_ITS | Encounter Summary ---
:1955 Author Organization [facility] Address [address] [place] [address] Care Team Providers Name Role Phone Alisha Kimball MD Primary Care Provider Encounter Details Date Type Department Care Team Description 05/21/2014 Orders Only [facility] Diabetes mellitus, type [address] [place] [address] Social History Tobacco Use Types Packs/Day Years Used Date Smoking Tobacco: Never Smokeless Tobacco: Never Alcohol Use Standard Drinks/Week Comments No 0 (1 standard drink = 0.6 oz pure alcoho l) Sex Assigned at Date Recorded Not on file documented as of this encounter Plan of Treatment Upcoming Encounters Date Type Specialty Care Team Description 06/09/2022 Appointment General Dentistry Elaine Garcia, [facility] [address] [place] [address] (Wo rk) documented as of this encounter Procedures Procedure Name Priority Date/Time Associated Diagnosis Comme nts CREATININE / GFR Routine 05/21/2014 7:33 AM Diabetes mellitus, Results for this RFID ANALYST type 2 procedure are i n the results section. HGB A1C Routine 05/21/2014 7:33 AM Diabetes mellitus, Res ults for this RFID ANALYST type 2 procedure are i n the results section. documented in this encounter Results CREATININE / GFR (05/21/2014 7:33 AM RFID ANALYST) Analysis Performed At Patho logist Time Signature Creatinine 0.90 0.52 - [facility] 1.04 mg/dl LAB[facility]ATORIES GFR, Estimated >60 >60 [facility] ml/min/1.7 LAB[facility]ATORIES 3m2 GFR, Est., If >60 >60 [facility] ml/min/1.7 LABORATORIES 3m2 Specimen Anatomical Collection Method Collection Time Receive d Time (Source) Location / / Volume Laterality 05/21/2014 7:33 AM 4 7:34 RFID ANALYST AM RFID ANALYST Narrative [facility] - 05/21/2014 1:[address] Performed at [facility], [address] [place] [address] ??[phone] Alisha Kimball MD LAB_1 Performing Organization Address City/[facility] Phon e Number [facility] [phone] (ABNORMAL) HGB A1C (05/21/2014 7:33 AM RFID ANALYST) P athologist Signature Hgb A1c 7.5 (H) [...] Volume Laterality 05/21/2014 7:33 AM 4 7:34 RFID ANALYST AM RFID ANALYST Narrative [facility] - 05/21/2014 1:[address] Performed at [facility], [address] [place] [address] ??[phone] Alisha Kimball MD LAB_1 Performing Organization Address City/[facility] Phon e Number [facility] [phone] documented in this encounter Visit Diagnoses Diagnosis Diabetes mellitus, type 2 (HRC) Type II or unspecified type diabetes dinora litus without mention of complication, not stated as uncontrolled documented in this encounter Care Teams Electrification Adviser Relationship Specialty Start Date End Date Alisha Kimball MD PCP - General 07/08/05 [address] [place] [address] documented as of this encounter
--- OUTSIDE RECORDS SUMMARY | 2022-05-29 13:36 | XMS_ITS | Encounter Summary ---
:1955 Author Organization [employer] Address [address], [place] [address] Care Team Providers Name Role Phone Alisha Kimball MD Primary Care Provider Encounter Details Date Type Department Care Team Description 10/30/2013 Orders Only [facility] Alisha Kimball, Diabetes mellitus, Practice MD type 2 (Primary Dx) [address] [facility]. [address] [place] [address] [place], [place] [phone] Social History Tobacco Use Types Packs/Day Years Used Date Smoking Tobacco: Never Smokeless Tobacco: Never Alcohol Use Standard Drinks/Week Comments No 0 (1 standard drink = 0.6 oz pure alcoho l) Sex Assigned at Date Recorded Not on file documented as of this encounter Plan of Treatment Upcoming Encounters Date Type Specialty Care Team Description 06/09/2022 Appointment General Dentistry Elaine Garcia, [address] [place] [address] (Wo rk) documented as of [...] AM 4 7:34 CDT AM CDT Narrative [facility] - 04/16/2014 12:25 PM CDT Performed at [facility], [address] [place] [address] ??[phone] Alisha Kimball MD LAB_1 Performing Organization Address City/State/ZIP Code Phon e Number [facility] [phone] documented in this encounter Visit Diagnoses Diagnosis Diabetes mellitus, type 2 (HRC) - Primar y Type II or unspecified type diabetes dinora litus without mention of complication, not stated as uncontrolled Diabetes mellitus, type 2 (HRC) Type II or unspecified type diabetes dinora litus without mention of complication, not stated as uncontrolled documented in this encounter Care Teams Laborer [employer] Relationship Specialty Start Date End Date Alisha Kimball MD PCP - General 07/08/05 [address] [place] [address] documented as of this encounter
--- OUTSIDE RECORDS SUMMARY | 2022-05-29 13:36 | XMS_ITS | Encounter Summary ---
:1955 Author Organization [facility] Address [address], [place] [address] Care Team Providers Name Role Phone Alisha Kimball MD Primary Care Provider Reason for Visit Reason Onset Date Comments Disease Registry 10/24/2013 Encounter Details Date Type Department Care Team Description 10/24/2013 Telephone [facility] Alisha Kimball MD Disease Registry [address] [facility]. [address] [place] [address] [place] [address] [phone] (Wo rk) Social History Tobacco Use Types Packs/Day Years Used Date Smoking Tobacco: Never Smokeless Tobacco: Never Alcohol Use Standard Drinks/Week Comments No 0 (1 standard drink = 0.6 oz pure alcoho l) Sex Assigned at Date Recorded Not on file documented as of this encounter Nursing Notes Francesca Cho CMA - 10/24/2013 1:46 PM CDT Erroneous Entry documented in this encounter Plan of Treatment Upcoming Encounters Date Type Specialty Care Team Description 06/09/2022 Appointment General Dentistry Elaine Garcia, [facility] [address] [place], [place] [phone] (Wo rk) documented as of this encounter Visit Diagnoses Not on filedocumented in this encounter Care Teams Vacuum Caster Relationship Specialty Start Date End Date Alisha Kimball MD PCP - General 07/08/[address] [place] [address] documented as of this encounter
--- OUTSIDE RECORDS SUMMARY | 2022-05-29 13:36 | XMS_ITS | Encounter Summary ---
:1955 Author Organization [facility] Address [address] [place] [address] Care Team Providers Name Role Phone Alisha Kimball MD Primary Care Provider Encounter Details Date Type Department Care Team Description 01/13/2013 Orders Only [facility] Diabetes mellitus type II [address] (HRC) [place] [address] Social History Tobacco Use Types Packs/Day Years Used Date Smoking Tobacco: Never Smokeless Tobacco: Never Alcohol Use Standard Drinks/Week Comments No 0 (1 standard drink = 0.6 oz pure alcoho l) Sex Assigned at Date Recorded Not on file documented as of this encounter Plan of Treatment Upcoming Encounters Date Type Specialty Care Team Description 06/09/2022 Appointment General Dentistry Elaine Garcia, [address] [place], [place] [phone] (Wo rk) documented as of this encounter [...] - 01/13/2013 12:39 PM CDT Performed at [facility], [address] [place] [address] ??[id number] Alisha Kimball MD LAB_1 Performing Organization Address [facility] Phon e Number [facility] [phone] (ABNORMAL) HGB A1C (01/13/2013 7:33 AM CDT) [...] AM CDT Narrative [facility] - 01/13/2013 3:07 PM C DT Performed at [facility], [address] [place] [address] ??[id number] Alisha Kimball MD LAB_1 Performing Organization Address [facility] Phon e Number [facility] [phone] documented in this encounter Visit Diagnoses Diagnosis Diabetes mellitus type II (HRC) Type II or unspecified type diabetes dinora litus without mention of complication, not stated as uncontrolled documented in this encounter Care Teams Rope Coiling Machine Operator Relationship Specialty Start Date End Date Alisha Kimball MD PCP - General 07/08/05 [address] [place] [address] documented as of this encounter
--- OUTSIDE RECORDS SUMMARY | 2022-05-29 13:36 | XMS_ITS | Encounter Summary ---
:1955 Author Organization [facility] Address [address] [place] [address] Care Team Providers Name Role Phone Alisha Kimball MD Primary Care Provider Encounter Details Date Type Department Care Team Description 04/16/2014 Orders Only [facility] Diabetes mellitus, type [address] [place] [address] Social History Tobacco Use Types [...] [facility] [address] [place] [address] (Wo rk) documented as of [...] AM 4 7:34 CDT AM CDT Narrative [facility] - 04/16/2014 12:25 PM CDT Performed at [facility], [address] [place] [address] ??[id number] Alisha Kimball MD LAB_1 Performing Organization Address City/State/ZIP Code Phon e Number [facility] [phone] documented in this encounter Visit Diagnoses Diagnosis Diabetes mellitus, type 2 (HRC) Type II or unspecified type diabetes dinora litus without mention of complication, not stated as uncontrolled documented in this encounter Care Teams Rink Rat Relationship Specialty Start Date End Date Alisha Kimball MD PCP - General 07/08/05 [address] [place] [address] documented as of this encounter
--- OUTSIDE RECORDS SUMMARY | 2022-05-29 13:36 | XMS_ITS | Encounter Summary ---
:1955 Author Organization [facility] Address [address] [place] [address] Care Team Providers Name Role Phone Alisha Kimball MD Primary Care Provider Encounter Details Date Type Department Care Team Description 11/01/2013 Orders Only [facility] MD [employer] Contact Bill [address] [place] [address] Mailstop [id number] [phone] (Wo rk) Social History Tobacco Use Types Packs/Day Years Used Date Smoking Tobacco: Never Smokeless Tobacco: Never Alcohol Use Standard Drinks/Week Comments No 0 (1 standard drink = 0.6 oz pure alcoho l) Sex Assigned at Date Recorded Not on file documented as of this encounter Plan of Treatment Upcoming Encounters Date Type Specialty Care Team Description 06/09/2022 Appointment General Dentistry Elaine Garcia, [facility] [address] [place], [place] [phone] (Wo rk) documented as of this encounter Visit Diagnoses Not on filedocumented in this encounter Care Teams Roll Hauler Relationship Specialty Start Date End Date Alisha Kimball MD PCP - General 07/08/[address] [place], [place] [phone] documented as of this encounter
--- OUTSIDE RECORDS SUMMARY | 2022-05-29 13:36 | XMS_ITS | Encounter Summary ---
:1955 Author Organization [employer] Address [address] [place] [address] Care Team Providers Name Role Phone Alisha Kimball MD Primary Care Provider Encounter Details Date Type Department Care Team Description 05/21/2014 Orders Only [facility] Alisha Kimball Hypercholes terolemia (Primary Dx); Rakesh Blevins MD Diabetes mellitus, type 2 [address] [place] [address] [address] [phone] [place], [place] [phone] Social History Tobacco Use Types Packs/Day Years Used Date Smoking Tobacco: Never Smokeless Tobacco: Never Alcohol Use Standard Drinks/Week Comments No 0 (1 standard drink = 0.6 oz pure alcoho l) Sex Assigned at Date Recorded Not on file documented as of this encounter Plan of Treatment Upcoming Encounters Date Type Specialty Care Team Description 06/09/2022 Appointment General Dentistry Elaine Garcia, [facility] [address] [place] [address] (Wo rk) documented as of this encounter Results (ABNORMAL) LIPID PANEL AND DIRECT LDL(IF NEEDED) (10/27/2014 9:03 AM CDT) [facility] Method Time Signature Hours Fasting 12 [...] - 10/29/2014 12:02 PM CDT Performed at [facility], [address] [place] [address] ??[phone] Alisha Kimball MD LAB_1 Performing Organization Address [facility] Phon e Number [facility] [phone] (ABNORMAL) HGB A1C (10/27/2014 9:03 AM CDT) [...] - 10/29/2014 12:07 PM CDT Performed at [facility], [address] [place] [address] ??[phone] Alisha Kimball MD LAB_1 Performing Organization Address [facility] Phon e Number [facility] [phone] documented in this encounter Visit Diagnoses Diagnosis Hypercholesterolemia - Primary Pure hypercholesterolemia Diabetes mellitus, type 2 (HRC) Type II or unspecified type diabetes dinora litus without mention of complication, not stated as uncontrolled Diabetes mellitus, type 2 (HRC) Type II or unspecified type diabetes dinora litus without mention of complication, not stated as uncontrolled Hypercholesterolemia Pure hypercholesterolemia documented in this encounter Care Teams Car Pre Cooler Relationship Specialty Start Date End Date Alisha Kimball MD PCP - General 07/08/05 [address] [place], [place] [phone] documented as of this encounter
--- OUTSIDE RECORDS SUMMARY | 2022-05-29 13:36 | XMS_ITS | Encounter Summary ---
:1955 Author Organization [facility] Address [address] [place] [address] Care Team Providers Name Role Phone Alisha Kimball MD Primary Care Provider Encounter Details Date Type Department Care Team Description 08/24/2014 Orders Only [facility] Abdominal pain, [address] [place] [address] Social History Tobacco Use Types [...] 06/09/2022 Appointment General Dentistry Elaine Garcia, [facility] [address] [place], [place] [phone] (Wo rk) documented as of this encounter Procedures Procedure Name Priority Date/Time Associated Diagnosis Comme nts COMPLETE BLOOD Waiting 08/24/2014 10:24 AM Abdominal pain, Res ults for this COUNT-W/DIFF LINEN GRADER generalized procedure are i n the results section. URINE CULTURE Routine 08/24/2014 10:24 AM Abdominal pain, Resu lts for this LINEN GRADER generalized procedure are i n the results section. BASIC METABOLIC Routine 08/24/2014 10:24 AM Abdominal pain, Re sults for this PANEL LINEN GRADER generalized procedure are i n the results section. H. PYLORI IGG Routine 08/24/2014 10:24 AM Abdominal pain, Resu lts for this LINEN GRADER generalized procedure are i n the results section. C-REACTIVE PROTEIN Routine 08/24/2014 10:24 AM Abdominal pain, Results for this LINEN GRADER generalized procedure are i n the results section. UA WITH MICRO Waiting 08/24/2014 10:24 AM Abdominal pain, Resu lts for this LINEN GRADER generalized procedure are i n the results section. documented in this encounter Results H. PYLORI IGG (08/24/2014 10:24 AM LINEN GRADER) [facility] gist Method Time Signature H. pylori IgG Negative NEG [facility] Specimen Anatomical Collection Method Collection Time Receive d Time (Source) Location / / Volume Laterality 08/24/2014 10:24 08/24/2014 AM LINEN GRADER 10:25 AM LINEN GRADER Narrative [facility] - 08/27/2014 2:[address] Performed at [facility], [address] [place] [address] ??[phone] David Kat MD LAB_1 Performing Organization Address [facility] Phon e Number [facility] [phone] URINE CULTURE (08/24/2014 10:24 AM LINEN GRADER) Component Value Ref Test Analysis Performed At [facility] Range Method Time Signature Specimen Urine [facility] Description [facility] Special Unspecified [facility] Requests [facility] Culture No Growth [facility] After 1 Day [facility] Report Status Final [facility] 08/25/2014 [facility]ATORIES Specimen Anatomical Collection Method Collection Time Receive d Time (Source) Location / / Volume Laterality 08/24/2014 10:24 08/24/2014 AM LINEN GRADER 10:25 AM LINEN GRADER Narrative [facility] - 08/25/2014 1:[address] Performed at [facility] , [address] [place] [address] David Kat MD LAB_1 Performing Organization Address City/[facility]/ZIP [facility] Phon e Number [facility] [phone] (ABNORMAL) UA WITH MICRO (08/24/2014 10:24 AM LINEN GRADER) [facility] gist Method Time Signature Urine Color Yellow [facility] [...] / Volume Laterality 08/24/2014 10:24 08/24/2014 AM LINEN GRADER 10:25 AM LINEN GRADER Narrative [facility] - 08/24/2014 10:37 AM LINEN GRADER Performed at [facility], [address] [place] [address] ??[phone] David Kat MD LAB_1 Performing Organization Address City/[facility] Phon e Number [facility] [phone] (ABNORMAL) BASIC METABOLIC PANEL (08/24/2014 10:24 AM LINEN GRADER) [facility] gist Method Time Signature Sodium 143 135 - [...] / Volume Laterality 08/24/2014 10:24 08/24/2014 AM LINEN GRADER 10:25 AM LINEN GRADER Narrative [facility] - 08/24/2014 2:[address] Performed at [facility], [address] ??[phone] David Kat MD LAB_1 Performing Organization Address City/State/ZIP Code Phon e Number [facility] [phone] (ABNORMAL) C-REACTIVE PROTEIN (08/24/2014 10:24 AM LINEN GRADER) [facility] gist Method Time Signature C-Reactive 5.7 (H) 0.0 - 0.9 [facility] Protein mg/dl LABORATORIES Comment: Note: results are expressed in mg/dL. Specimen Anatomical Collection Method Collection Time Receive d Time (Source) Location / / Volume Laterality 08/24/2014 10:24 08/24/2014 AM LINEN GRADER 10:25 AM LINEN GRADER Narrative [facility] - 08/24/2014 2:[address] Performed at [facility], [address] [place] [address] ??[phone] David Kat MD LAB_1 Performing Organization Address City/[facility]/ZIP Code Phon e Number [facility] [phone] HEMOGRAM/PLTS/DIFF (08/24/2014 10:24 AM LINEN GRADER) Analysis Performed At Patho logist Time Signature [...] [facility] Lymph 24 % [facility] Esmeralda 7 % [facility] Eos 2 % [facility] Baso 1 % [facility] Neutrophil 5.4 1.8 - 7.7 [facility] Absolute k/ul LAB[facility]IES Lymph Absolute 2.0 1.0 - 4.8 [facility] k/ul [facility] Esmeralda Absolute 0.6 0.1 - 0.7 [facility] k/ul [facility] Eos Absolute 0.2 0.0 - 0.5 [facility] k/ul [facility] Baso Absolute 0.1 0.0 - 0.2 [facility] k/ul [facility] Specimen Anatomical Collection Method Collection Time Receive d Time (Source) Location / / Volume Laterality 08/24/2014 10:24 08/24/2014 AM LINEN GRADER 10:25 AM LINEN GRADER Narrative [facility] - 08/24/2014 10:39 AM LINEN GRADER Performed at [facility], [address] [place], [place] ??[address] David Kat MD LAB_1 Performing Organization Address City/State/ZIP Code Phon e Number [facility] [phone] documented in this encounter Visit Diagnoses Diagnosis Abdominal pain, generalized documented in this encounter Care Teams Farm Equipment Mechanic Relationship Specialty Start Date End Date Alisha Kimball MD PCP - General 07/08/05 [address] [place] [address] documented as of this encounter
--- OUTSIDE RECORDS SUMMARY | 2022-05-29 13:36 | XMS_ITS | Encounter Summary ---
:1955 Author Organization [employer] Address [address], [place] [address] Care Team Providers Name Role Phone Alisha Kimball MD Primary Care Provider Reason for Visit Reason Comments Refill Encounter Details Date Type Department Care Team Description 04/15/2014 Refill [facility] Alisha Steinberg MD Refill [address] [facility]. [address] [place] [address] [place], [place] [phone] (Wo rk) Social History Tobacco Use Types [...] - HBA1C: 7.0% on 10/29/2013 Powered by [employer], Reference: [id number], 04/15/2014 7:44:25 PM CDT, Pool: ARNOLD REFILL RN ([id number]) documented in this encounter Plan of Treatment Upcoming Encounters Date Type Specialty Care Team Description 06/09/2022 Appointment General Dentistry Elaine Garcia, R[facility] [address] [place], [place] [phone] (Wo rk) documented as of this encounter Visit Diagnoses Not on filedocumented in this encounter Care Teams Table Filler Relationship Specialty Start Date End Date Alisha Kimball MD PCP - General 07/08/05 [address] [place], [place] [phone] documented as of this encounter
--- OUTSIDE RECORDS SUMMARY | 2022-05-29 13:36 | XMS_ITS | Encounter Summary ---
:1955 Author Organization [email or web address] Address [address] [place] [address] Care Team Providers Name Role Phone Alisha Kimball MD Primary Care Provider Reason for Visit Reason Onset Date Comments LAB TESTS, NOS 05/17/2014 Encounter Details Date Type Department Care Team Description 05/17/2014 Telephone [facility] Alisha Steinberg MD LAB TESTS, NOS [address] [place] [address] [place] [address] [phone] (Wo rk) Social History Tobacco Use Types Packs/Day Years Used Date Smoking Tobacco: Never Smokeless Tobacco: Never Alcohol Use Standard Drinks/Week Comments No 0 (1 standard drink = 0.6 oz pure alcoho l) Sex Assigned at Date Recorded Not on file documented as of this encounter Nursing Notes Alisha Kimball MD - 05/18/2014 2:54 PM CST OK. See orders. Alisha Kimball MD MAID [facility] - 05/17/2014 7:04 PM CST Patient on Lab Only Visit Schedule, no lab orders found in patient's chart. Patient is coming in tiffanie A1C. Please review and enter Future Lab Orders or notify the patient that lab work is not needed. Lab Only Visit scheduled for: 05/21/14. After placing Future Orders, please route this Telephone Encounter to the following pool: [place] LAB POOL. Thank you MAID documented in this encounter Plan of Treatment Upcoming Encounters Date Type Specialty Care Team Description 06/09/2022 Appointment General Dentistry Radha Elaine te Yadira, [facility] [address] [place] [address] (Wo rk) documented as of this encounter Results CREATININE / GFR (05/21/2014 7:33 AM WARD MAID) Analysis Performed At Patho logist Time Signature Creatinine 0.90 0.52 - [facility] 1.04 mg/dl [facility] GFR, Estimated >60 >60 [facility] ml/min/1.7 LAB[facility]ATORIES 3m2 GFR, Est., If >60 >60 [facility] Black ml/min/1.7 LABORATORIES 3m2 Specimen Anatomical Collection Method Collection Time Receive d Time (Source) Location / / Volume Laterality 05/21/2014 7:33 AM 4 7:34 WARD MAID AM WARD MAID Narrative [facility] - 05/21/2014 1:[address] Performed at [facility], [address] [place] [address] ??[phone] Alisha Kimball MD LAB_1 Performing Organization Address City/State/ZIP Code Phon e Number [facility] [phone] (ABNORMAL) HGB A1C (05/21/2014 7:33 AM WARD MAID) P athologist Signature Hgb A1c 7.5 (H) [...] Volume Laterality 05/21/2014 7:33 AM 4 7:34 WARD MAID AM WARD MAID Narrative [facility] - 05/21/2014 1:[address] Performed at [facility], [address] [place] [address] ??[phone] Alisha Kimball MD LAB_1 Performing Organization Address City/State/ZIP Code Phon e Number [facility] [phone] documented in this encounter Visit Diagnoses Diagnosis Diabetes mellitus, type 2 (HRC) - Primar y Type II or unspecified type diabetes dinora litus without mention of complication, not stated as uncontrolled Diabetes mellitus, type 2 (HRC) Type II or unspecified type diabetes dinora litus without mention of complication, not stated as uncontrolled documented in this encounter Care Teams Starbucks Barista Relationship Specialty Start Date End Date Alisha Kimball MD PCP - General 07/08/05 [address] [place] [address] documented as of this encounter
--- OUTSIDE RECORDS SUMMARY | 2022-05-29 13:36 | XMS_ITS | Encounter Summary ---
:1955 Author Organization [employer] Address [address] [place] [address] Care Team Providers Name Role Phone Alisha Kimball MD Primary Care Provider Encounter Details Date Type Department Care Team Description 09/24/2013 Notes/Orders [facility] Alisha Kimball, Issue of repeat Practice prescriptions (Primary [address] [place]x) [place] [address] [place], [place] [phone] [address] Social History Tobacco Use Types Packs/Day Years [...] - NEXT LAB APPOINTMENT: 09/29/2013 Powered by [employer], Reference: [id number], 09/24/2013 8:49:09 PM CDT documented in this encounter Plan of Treatment Upcoming Encounters Date Type Specialty Care Team Description 06/09/2022 Appointment General Dentistry Elaine Garcia, [facility] [address] [place], [place] [phone] (Wo rk) documented as of this encounter Visit Diagnoses Diagnosis Issue of repeat prescriptions - Primary documented in this encounter Care Teams Industrial Engineering Technician Relationship Specialty Start Date End Date Alisha Kimball MD PCP - General 07/08/05 [address] [place], [place] [phone] documented as of this encounter
--- OUTSIDE RECORDS SUMMARY | 2022-05-29 13:36 | XMS_ITS | Encounter Summary ---
:1955 Author Organization [facility] Address [address], [place] [address] Care Team Providers Name Role Phone Alisha Kimball MD Primary Care Provider Encounter Details Date Type Department Care Team Description 01/15/2013 Orders Only [facility] Alisha Kimball, Diabetes mellitus type Practice MD II (HRC) (Primary Dx) [address] [facility]. [address] [place] [address] [place] [address] [phone] Social History Tobacco Use Types Packs/Day Years [...] Dentistry Elaine Garcia, [facility] [address] [place], [place] [phone] (Wo rk) documented as of this encounter Visit Diagnoses Diagnosis Diabetes mellitus type II (HRC) - Primar y Type II or unspecified type diabetes dinora litus without mention of complication, not stated as uncontrolled documented in this encounter Care Teams Insurance Claim Auditor Relationship Specialty Start Date End Date Alisha Kimball MD PCP - General 07/08/05 [address] [place], [place] [phone] documented as of this encounter
--- OUTSIDE RECORDS SUMMARY | 2022-05-29 13:36 | XMS_ITS | Encounter Summary ---
:1955 Author Organization [employer] Address [address] [place] [address] Care Team Providers Name Role Phone Alisha Kimball MD Primary Care Provider Reason for Visit Reason Comments LAB RESULTS A1C Encounter Details Date Type Department Care Team Description 04/19/2014 Telephone [facility] Alisha Steinberg MD LAB RESULTS (A1C) [address] [place] [address] [place], [place] [phone] (Wo rk) Social History Tobacco Use Types [...] time.Nikkie Eason RN 04/20/2014, 9:02 AM Francesca Cho CMA - 04/19/2014 9:55 AM CDT Left message to call back. Alisha Kimball MD - 04/19/2014 7:57 AM CDT Please call the patient. A1C is up a lot (7.0--->7.9). Please verify metformin dose of 1000 mg once in the morning. If no side effects, recommend increased dose of 2000 mg once daily in the morning.A1C in 4-6 weeks. Please also offer flame annealing machine operator and diabetes education visits. Thanks! Alisha Kimball MD documented in this encounter Plan of Treatment Upcoming Encounters Date Type Specialty Care Team Description 06/09/2022 Appointment General Dentistry Elaine Garcia, [facility] [address] [place] [address] (Wo rk) documented as of this encounter Visit Diagnoses Not on filedocumented in this encounter Care Teams Laborer Driver Relationship Specialty Start Date End Date Alisha Kimball MD PCP - General 07/08/05 [address] [place] [address] documented as of this encounter
--- OUTSIDE RECORDS SUMMARY | 2022-05-29 13:36 | XMS_ITS | Encounter Summary ---
:1955 Author Organization [facility] Address [address] [place] [address] Care Team Providers Name Role Phone Alisha Kimball MD Primary Care Provider Reason for Visit Procedure/Equipment (Routine) - Incomplete Specialty Diagnoses / Procedures Referred By Contact Refer red To Contact Diagnoses Encounter for screening mammogram for malignant neoplasm of breast Alisha Kimball MD Procedures BILAT Mammogram screening [address] [facility] [place] [address] Referral ID Status Reason Start Date Expiration Date Visits V isits Requested Authorized [id number] Incomplete 10/30/2013 1 1 Encounter Details Date Type Department Care Team Description 11/01/2013 Imaging [facility] Enco unter for screening Mammography mammogram for malignant [address] [place] [address] Social History Tobacco Use Types [...] Elaine Garcia, [facility] [address] [place], [place] [phone] (Wo rk) documented as of this encounter [...] mammogram documented in this encounter Care Teams Field Assembly Supervisor Relationship Specialty Start Date End Date Alisha Kimball MD PCP - General 07/08/05 [address] [place] [address] documented as of this encounter
--- OUTSIDE RECORDS SUMMARY | 2022-05-29 13:36 | XMS_ITS | Encounter Summary ---
:1955 Author Organization [employer] Address [address], [place] [address] Care Team Providers Name Role Phone Alisha [place] MD Primary Care Provider Reason for Visit Reason Onset Date Comments PHARMACIST COUNSELING 01/02/2013 diabetes Encounter Details Date Type Department Care Team Description 01/02/2013 Pharmacy [facility] Daria Galvez PHARMAC IST COUNSELING Pharmacy PharmD (diabetes) [address] [facility]. [address] [place] [address] [place], [place] [phone] (Wo rk) Social History Tobacco Use Types [...] General Dentistry Elaine Garcia, [facility] [address] [place] [address] (Wo rk) documented as of this encounter Visit Diagnoses Not on filedocumented in this encounter Care Teams Vp Biology Relationship Specialty Start Date End Date Alisha Kimball MD PCP - General 07/08/05 [address] [place], [place] [phone] documented as of this encounter
--- OUTSIDE RECORDS SUMMARY | 2022-05-29 13:36 | XMS_ITS | Encounter Summary ---
:1955 Author Organization [employer] Address [address], [place] [address] Care Team Providers Name Role Phone Alisha Kimball MD Primary Care Provider Reason for Visit Reason Onset Date Comments Medication Questions 06/02/2014 Encounter Details Date Type Department Care Team Description 06/02/2014 Telephone [facility] Alisha Kimball MD Medication Questions Practice [address] [place] [address] [place], [place] [id number] [phone] Social History Tobacco Use Types Packs/Day Years Used Date Smoking Tobacco: Never Smokeless Tobacco: Never Alcohol Use Standard Drinks/Week Comments No 0 (1 standard drink = 0.6 oz pure alcoho l) Sex Assigned at Date Recorded Not on file documented as of this encounter Nursing Notes Valeria Villa - 06/12/2014 9:23 AM CST Lm Encounter closed ER AND UNLOADER Alisha Kimball MD - 06/05/2014 5:28 PM CST Refill sent. Alisha Kimball MD ER AND UNLOADER Tara Ricketts - 06/05/2014 3:59 PM CST [...] AM CST Left message to call back. ER AND UNLOADER Alisha Kimball MD - 06/04/2014 11:03 AM CST MTM note reviewed. How is her stomach upset with the metformin? Thanks! Alisha Kimball MD ER AND UNLOADER Erlinda Dickerson RN - 06/04/2014 8:08 AM CST Last Visit: 10/30/13 See below Erlinda Dickerson RN ER AND UNLOADER Jodi Dick - 06/02/2014 12:55 PM CST Patient states metformin dose has been increased. Pharmacy would need prescription to reflect new dose. Please review ER AND UNLOADER documented in this encounter Plan of Treatment Upcoming Encounters Date Type Specialty Care Team Description 06/09/2022 Appointment General Dentistry Elaine Garcia, [facility] [address] [place] [address] (Wo rk) documented as of this encounter Visit Diagnoses Diagnosis Diabetes mellitus, type 2 (HRC) - Primar y Type II or unspecified type diabetes dinora litus without mention of complication, not stated as uncontrolled documented in this encounter Care Teams Excavating Machine Operator Relationship Specialty Start Date End Date Alisha Kimball MD PCP - General 07/08/[address] [place] [address] documented as of this encounter
--- OUTSIDE RECORDS SUMMARY | 2022-05-29 13:36 | XMS_ITS | Encounter Summary ---
:1955 Author Organization [employer] Address [address], [place] [address] Care Team Providers Name Role Phone Alisha Kimball MD Primary Care Provider Reason for Visit Reason Onset Date Comments PHARMACIST COUNSELING 07/07/2013 diabetes Encounter Details Date Type Department Care Team Description 07/07/2013 Pharmacy [facility], [place]ha, PHARMACIS T COUNSELING Pharmacy PharmD (diabetes) [address] [facility]. [address] [place] [address] [facility] [phone] [place], [place] [address] (Wo rk) Social History [...] Dentistry Elaine Garcia, [facility] [address] [place], [place] [phone] (Wo rk) documented as of this encounter Visit Diagnoses Not on filedocumented in this encounter Care Teams Rags Laborer Relationship Specialty Start Date End Date Alisha Kimball MD PCP - General 07/08/05 [address] [place], [place] [id number] documented as of this encounter
--- OUTSIDE RECORDS SUMMARY | 2022-05-29 13:36 | XMS_ITS | Encounter Summary ---
:1955 Author Organization [facility] Address [address], [place] [address] Care Team Providers Name Role Phone Alisha Kimball MD Primary Care Provider Reason for Visit Reason Onset Date Comments ERRONEOUS ENTRY 04/17/2014 Encounter Details Date Type Department Care Team Description 04/17/2014 Telephone [facility] Alisha Kimball MD ERRONEOUS ENTRY [address] [facility]. [address] [place] [address] [place] [address] [phone] (Wo rk) Social History Tobacco Use Types [...] Dentistry Elaine Garcia, [facility] [address] [place] [address] (Wo rk) documented as of this encounter Visit Diagnoses Not on filedocumented in this encounter Care Teams On Site Manager Relationship Specialty Start Date End Date Alisha Kimball MD PCP - General 07/08/05 [address] [place], [place] [phone] documented as of this encounter
--- OUTSIDE RECORDS SUMMARY | 2022-05-29 13:36 | XMS_ITS | Encounter Summary ---
:1955 Author Organization [employer] Address [address], [place] [address] Care Team Providers Name Role Phone Alisha Kimball MD Primary Care Provider Reason for Visit Reason Comments Refill Encounter Details Date Type Department Care Team Description 09/24/2013 Refill [facility] Alisha Kimball MD Refill [address] [facility]. [address] [place] [address] [place], [place] [phone] (Wo rk) Social History Tobacco Use Types [...] (AKA NORVASC) 5 MG tablet (Sent to [employer]LL[employer] EXCEPTIONAL NEEDS TEACHER POOL) - LIPID PANEL (12 HR. FASTING) for atorvastatin (AKA LIPITOR) 10 MG tablet (Sent to [employer] REFILLWIZARD EXCEPTIONAL NEEDS TEACHER POOL) Powered by [employer], Reference: [id number], 09/24/2013 8:49:09 PM CDT documented in this encounter Plan of Treatment Upcoming Encounters Date Type Specialty Care Team Description 06/09/2022 Appointment General Dentistry Elaine Garcia, [facility] [address] [place] [address] (Wo rk) documented as of this encounter Visit Diagnoses Diagnosis Pure hypercholesterolemia - Primary documented in this encounter Care Teams Pipe Installer Relationship Specialty Start Date End Date Alisha Kimball MD PCP - General 07/08/05 [address] [place], [place] [phone] documented as of this encounter
--- OUTSIDE RECORDS SUMMARY | 2022-05-29 13:36 | XMS_ITS | Encounter Summary ---
:1955 Author Organization [employer] Address [address] [place] [address] Care Team Providers Name Role Phone Alisha Kimball MD Primary Care Provider Reason for Visit Reason Comments LAB RESULTS A1C, lipids Encounter Details Date Type Department Care Team Description 12/16/2012 Telephone [facility] Alisha Kimball MD LAB RESULTS (A1C, Practice [address] lipids) [address] [place] [address] [place] [address] [phone] Social History Tobacco Use Types Packs/Day Years [...] Appointment General Dentistry Elaine Garcia, [facility] [address] [place] [address] (Wo rk) documented as of this encounter Results CREATININE / GFR (01/13/2013 7:33 AM CDT) Analysis Performed At [facility] Time Signature Creatinine 0.75 0.52 - [facility] 1.04 mg/dl LABORATORIES GFR, Estimated >60.0 >60 [facility] ml/min/1.7 LABORATORIES 3m2 GFR, Est., If >60.0 >60 [facility] Black ml/min/1.7 LABORATORIES 3m2 Specimen Anatomical Collection Method Collection Time Receive d Time (Source) Location / / Volume Laterality 01/13/2013 7:33 AM 3 7:38 CDT AM CDT Narrative [facility] - 01/13/2013 12:39 PM CDT Performed at [facility], [address] [place] [address] ??[id number] Alisha Kimball MD LAB_1 Performing Organization Address City/State/[facility] Phon e Number [facility] [phone] documented in this encounter Visit Diagnoses Diagnosis Diabetes mellitus type II (HRC) - Primar y Type II or unspecified type diabetes dinora litus without mention of complication, not stated as uncontrolled Diabetes mellitus type II (HRC) Type II or unspecified type diabetes dinora litus without mention of complication, not stated as uncontrolled documented in this encounter Care Teams Light Armored Reconnaissance Officer Relationship Specialty Start Date End Date Alisha Kimball MD PCP - General 07/08/05 [address] [place] [address] documented as of this encounter
--- OUTSIDE RECORDS SUMMARY | 2022-05-29 13:36 | XMS_ITS | Encounter Summary ---
:1955 Author Organization [employer] Address [address], [place] [address] Care Team Providers Name Role Phone Alisha Kimball MD Primary Care Provider Reason for Referral Procedure/Equipment (Routine) - Incomplete Specialty Diagnoses / Procedures Referred By Contact Refer red To Contact Diagnoses Encounter for screening mammogram for malignant neoplasm of breast Alisha Kimball MD Procedures BILAT Mammogram screening [address] [place] [address] Referral ID Status Reason Start Date Expiration Date Visits V isits Requested Authorized [id number] Incomplete 10/30/2013 1 1 Reason for Visit Reason Comments ROUTINE HEALTH MAINTENANCE Encounter Details Date Type Department Care Team Description 10/30/2013 Office Visit [facility] Alisha Kimball, [facility] (Primary Dx); Practice MD Encounter for screening mammogram for ma lignant neoplasm of breast [address] [place] [address] [place] [address] [phone] Social History Tobacco Use Types Packs/Day Years [...] Team Description 06/09/2022 [facility] [address] [place] [address] (Wo rk) documented as of this encounter Results BILAT Mammogram [...] mammogram documented in this encounter Care Teams Head Cd Reactor Operator Relationship Specialty Start Date End Date Alisha Kimball MD PCP - General 07/08/05 [address] [place] [address] documented as of this encounter
--- OUTSIDE RECORDS SUMMARY | 2022-05-29 13:37 | XMS_ITS | Encounter Summary ---
:1955 Author Organization [employer] Address [address], [place] [address] Care Team Providers Name Role Phone Alisha Kimball MD Primary Care Provider Reason for Visit Reason Comments BP CHECK,NURSE Encounter Details Date Type Department Care Team Description 11/09/2011 Nursing Visit [place] [facility] Make Up Operator Helper/Cm/Maryjo, Simona Unspecifi ed essential Department Nursing hypertension (Primary [address] Dx) [place] [address] [place], [place] [phone] Social History Tobacco Use Types Packs/Day Years [...] Appointment General Dentistry Elaine Garcia, [facility] [address] [place] [address] (Wo rk) documented as of this encounter Visit Diagnoses Diagnosis Unspecified essential hypertension (HRC) - Primary Unspecified essential hypertension documented in this encounter Care Teams Oil Heater Installer Relationship Specialty Start Date End Date Alisha Kimball MD PCP - General 07/08/05 [address] [place] [address] documented as of this encounter
--- OUTSIDE RECORDS SUMMARY | 2022-05-29 13:37 | XMS_ITS | Encounter Summary ---
:1955 Author Organization [employer] Address [address] [address] Care Team Providers Name Role Phone Alisha Kimball MD Primary Care Provider Reason for Visit Reason Comments FOLLOW-UP,DIABETES Encounter Details Date Type Department Care Team Description 10/31/2012 Telephone [facility] maxi Alisha Kimball MD FOLLOW-UP,DIABETES [address] [place] [address] [place] [address] [phone] (Wo rk) Social History Tobacco Use Types [...] - 11/14/2012 9:51 AM CDT lmtrc Alisha Kimball MD - 10/31/2012 8:09 PM CDT Please call the patient for glucoses. Thanks! Alisha Kimball MD documented in this encounter Plan of Treatment Upcoming Encounters Date Type Specialty Care Team Description 06/09/2022 Appointment General Dentistry Elaine Garcia, [facility] [address] [place], [place] [phone] (Wo rk) documented as of this encounter Visit Diagnoses Not on filedocumented in this encounter Care Teams Splicer Machine Operator Relationship Specialty Start Date End Date Alisha Kimball MD PCP - General 07/08/05 [address] [place], [place] [phone] documented as of this encounter
--- OUTSIDE RECORDS SUMMARY | 2022-05-29 13:37 | XMS_ITS | Encounter Summary ---
:1955 Author Organization [employer] Address [address], [place] [address] Care Team Providers Name Role Phone Alisha Kimball MD Primary Care Provider Reason for Visit Reason Comments DIABETES EDUCATION Encounter Details Date Type Department Care Team Description 07/08/2010 Office Visit [place] [facility] Janiya Naqvi Diabfortunato es mellitus type Program Meghann RN, CDE II ([facility]) (Primary Dx) [address] [place] [address] Social History Tobacco Use Types Packs/Day Years [...] (180 lb 9.6 oz) 07/08/2010 4:50 PM PRINCIPAL BIOSTATISTICIAN Height - - Body Mass Index 30.76 04/28/2010 8:10 AM CDT documented in this encounter Progress Notes Janiya Naqvi RN, CDE - 07/08/2010 6:08 PM CST SUBJECTIVE Loc Velasco is referred by standing order for Diabetes Education. Accompanied by: unaccompanied Changes since last encounter: diet: eating smaller portions, no sweets, had some higher sugars over the [place] weekend(no sweets, just too many carbs(dips, crackers,etc) Exercise: brisk walk(~1 mile)3 times/wk in the [facility] with friends before work, plans to join [employer] medication(s): none hypoglycemia: none monitoring blood sugars: [...] program Appointments to be scheduled (Appointment center [phone]): Diabetes classes: is registered to attend 09/2010 Dietitian:is scheduled to see Viki Palm on 07/29/10 for consultation Diabetes Nurse Specialist: see 4-6 weeks post DM classes Time spent with the patient: 60 minutes for diabetes education and counseling. Janiya Naqvi RN, CDE 07/08/2010, 5:33 PM CIPAL BIOSTATISTICIAN documented in this encounter Plan of Treatment Upcoming Encounters Date Type Specialty Care Team Description 06/09/2022 Appointment General Dentistry Elaine Garcia, [facility] [address] [place] [address] (Wo rk) documented as of this encounter Visit Diagnoses Diagnosis Diabetes mellitus type II (HRC) - Primar y Type II or unspecified type diabetes dinora litus without mention of complication, not stated as uncontrolled documented in this encounter Care Teams Quill Stripper Relationship Specialty Start Date End Date Alisha Kimball MD PCP - General 07/08/05 [address] [place] [address] documented as of this encounter
--- OUTSIDE RECORDS SUMMARY | 2022-05-29 13:37 | XMS_ITS | Encounter Summary ---
:1955 Author Organization [facility] Address [address] [place] [address] Care Team Providers Name Role Phone Alisha Kimball MD Primary Care Provider Encounter Details Date Type Department Care Team Description 07/16/2009 Imaging [facility] Screening, Mammography Unspecified [address] [place], [place] [phone] Social History Tobacco Use Types Packs/Day Years [...] Elaine Garcia, [facility] [address] [place], [place] [phone] (Wo rk) documented as of this encounter Procedures Procedure Name Priority Date/Time Associated Diagnosis Comme nts MM MAMMOGRAM Routine 07/16/2009 8:43 AM Breast Screening, Resu lts for this SCREENING BILAT W BURNER SHAFT Unspecified procedure are in CAD the results section. documented in this encounter Results MAMMOGRAM SCREENING BILATERAL [[id number]] (07/16/2009 8:43 AM BURNER SHAFT) Anatomical Region Laterality Modality Breast Bilateral Mammography Specimen (Source) Anatomical Location Collection Method / Collectio n Time Received Time / Laterality Volume Narrative 07/17/2009 1:31 PM BURNER SHAFT BILATERAL FULL FIELD DIGITAL SCREENING MAMMOGRAM Performed [...] unspecified documented in this encounter Care Teams Bag Press Operator Relationship Specialty Start Date End Date Alisha Kimball MD PCP - General 07/08/05 [address] [place] [address] documented as of this encounter
--- OUTSIDE RECORDS SUMMARY | 2022-05-29 13:37 | XMS_ITS | Encounter Summary ---
:1955 Author Organization [employer] Address [address] [place] [address] Care Team Providers Name Role Phone Alisha Kimball MD Primary Care Provider Reason for Visit Reason Comments Nutrition Counseling Encounter Details Date Type Department Care Team Description 07/29/2010 Office Visit [place] Dietitian's Meaghan Palm, Diab etes mellitus type Clinic RD, LD II ([facility]) (Primary Dx) [address] [place] [address] Social History Tobacco Use Types [...] spouse, who is following similar eating habits. 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 Changes since dx: eating smaller portions, no sweets, Large amount of vegetables and protein in diet Exercise: brisk walk(~1 mile)3 times/wk in the [facility] with friends before work, thinking about to [...] once a week. Snack - lite yogurt, [employer] bar or Glucerna Dinner @ around 5-5:30 [...] of controlled carb meal plan. Calorie Intake. 7819-7655 calories with 15-30 grams of carb per [...] water/hydrating liquid. . Referrals: will be attending March diabetes class Next medical nutrition therapy visit scheduled for: jeannine Pt was invited to call or email this provider in the future if any questions or problems arise. Meaghan Palm RD, MS, CDE 07/29/2010 60 minutes in education and counseling ROUTE CONTROLLER documented in this encounter Plan of Treatment Upcoming Encounters Date Type Specialty Care Team Description 06/09/2022 Appointment [place] [address] [place] [address] (Wo rk) documented as of this encounter Visit Diagnoses Diagnosis Diabetes mellitus type II (HRC) - Primar y Type II or unspecified type diabetes dinora litus without mention of complication, not stated as uncontrolled documented in this encounter Care Teams Relationship Assoc Relationship Specialty Start Date End Date Alisha Kimball MD PCP - General 07/08/05 [address] [place] [address] documented as of this encounter
--- OUTSIDE RECORDS SUMMARY | 2022-05-29 13:37 | XMS_ITS | Encounter Summary ---
:1955 Author Organization [facility] Address [address] [place] [address] Care Team Providers Name Role Phone Alisha Kimball MD Primary Care Provider Reason for Referral Specialty Diagnoses / Procedures Referred By Contact Refer red To Contact Alisha Kimball MD [address] [place] [address] Referral ID Status Reason Start Date Expiration Date Visits Requ ested Visits Authorized Scheduling Instructions . OR CATEGORY MANAGER Specialty Diagnoses / Procedures Referred By Contact Refer red To Contact Alisha Kimball MD [address] [place] [address] Referral ID Status Reason Start Date Expiration [...] call the number on your insurance card. OR CATEGORY MANAGER Specialty Diagnoses / Procedures Referred By Contact Refer red To Contact Alisha Kimball MD [address] [place] [address] Referral ID Status Reason Start Date Expiration [...] call the number on your insurance card. OR CATEGORY MANAGER Reason for Visit Reason Comments LAB RESULTS glucose and A1C Encounter Details Date Type Department Care Team Description 05/14/2010 Telephone [facility] Alisha Kimball MD LAB RESULTS (glucose Practice [address] and A1C) [address] [place] [address] [place], [place] [phone] Social History Tobacco Use Types Packs/Day Years Used Date Smoking Tobacco: Never Alcohol Use Standard Drinks/Week Comments Not Asked 0 (1 standard drink = 0.6 oz pure alcoho l) Sex Assigned at Date Recorded Not on file documented as of this encounter Nursing Notes Francesca Cho CMA - 05/15/2010 3:35 PM CST Loc was notified. Francesca Cho OR CATEGORY MANAGER La Solis - 05/15/2010 2:52 PM CST Patient is returning nurse's call OR CATEGORY MANAGER Francesca Cho CMA - 05/15/2010 9:00 AM CST [facility] Francesca Cho OR CATEGORY MANAGER Alisha Kimball - 05/14/2010 6:49 PM CST Please call Melia. Her glucose is better, but not normal. Her A1C suggests higher glucoses over the past 3 months, so she has diabetes. Should see critical care educator and ginger farmer to learn glucose monitoring. See orders. Thanks! Alisha Kimball MD OR CATEGORY MANAGER documented in this encounter Plan of Treatment Upcoming Encounters Date Type Specialty Care Team Description 06/09/2022 Appointment General Dentistry Radha Elaine Gomez, [facility] [address] [place] [address] (Wo rk) Scheduled Referrals Name Type Priority Associated Diagnoses Order S [facility] DIABETES ED CLASSES Referral Routine Diabetes mellitus typ e Ordered: 05/14/2010 II (HRC) DIABETES ED DIETITIAN Referral Routine Diabetes mellitus t ype Ordered: 05/14/2010 VISIT II ([facility]) DIABETES ED NURSE VISIT Referral Routine Diabetes mellitus type Ordered: 05/14/2010 II ([facility]) documented as of this encounter Visit Diagnoses Diagnosis Diabetes mellitus type II (HRC) - Primar y Type II or unspecified type diabetes dinora litus without mention of complication, not stated as uncontrolled documented in this encounter Care Teams Needle Loom Weaver Relationship Specialty Start Date End Date Alisha Kimball MD PCP - General 07/08/05 [address] [place] [address] documented as of this encounter
--- OUTSIDE RECORDS SUMMARY | 2022-05-29 13:37 | XMS_ITS | Encounter Summary ---
:1955 Author Organization [facility] Address [address] [place] [address] Care Team Providers Name Role Phone Alsiha Kimball MD Primary Care Provider Reason for Referral Procedure/Equipment (Routine) - Closed Specialty Diagnoses / Procedures Referred By Contact Refer red To Contact Procedures Wy Mammogram MAMMOGRAM SCREENING BILATERAL [address] [place] [address] Referral ID Status Reason Start Date Expiration Date Visits Requ ested Visits Authorized [id number] Closed 10/24/2012 1 1 Reason for Visit Procedure/Equipment (Routine) - Closed Specialty Diagnoses / Procedures Referred By Contact Refer red To Contact Procedures Wy Mammogram MAMMOGRAM SCREENING BILATERAL [address] [facility] [place] [address] Referral ID Status Reason Start Date Expiration Date Visits Requ ested Visits Authorized [id number] Closed 10/24/2012 1 1 Encounter Details Date Type Department Care Team Description 10/24/2012 Imaging [facility] Mammography [address] [place] [address] Social History Tobacco Use Types [...] General Dentistry Elaine Garcia, [facility] [address] [place] [address] (Wo rk) documented as of this encounter [...] on filedocumented in this encounter Care Teams Electro Mechanical Solar Technician Relationship Specialty Start Date End Date Alisha Kimball MD PCP - General 07/08/05 [address] [place] [address] documented as of this encounter
--- OUTSIDE RECORDS SUMMARY | 2022-05-29 13:37 | XMS_ITS | Encounter Summary ---
:1955 Author Organization [employer] Address [address] [place] [address] Care Team Providers Name Role Phone Alisha Kimball MD Primary Care Provider Encounter Details Date Type Department Care Team Description 12/16/2012 Orders Only [facility] Diabetes mellitus type II (H RC); [address] Hypercholesterolemia; [place] [address] Elevated liver enzymes [phone] Social History Tobacco Use Types Packs/Day Years [...] Elaine Garcia, [facility] [address] [place] [address] (Wo rk) documented as of [...] 12/16/2012 2:00 PM C DT Performed at [facility], [address] [place] [address] ??[id number] Alisha Kimball MD LAB_1 Performing Organization Address [facility] Phon e Number [facility] [phone] LIVER PANEL(HEPATIC FUNCTION PANEL) (12/16/2012 7:33 AM CDT) Patholo gist Method Time Signature Alkaline 90 38 - [...] - 12/16/2012 12:42 PM CDT Performed at [facility], [address] [place] [address] ??[id number] Alisha Kimball MD LAB_1 Performing Organization Address [facility] Phon e Number [facility] [phone] LIPID PANEL AND DIRECT LDL(IF NEEDED) (12/16/2012 7:33 AM CDT) [facility] gist Method Time Signature Hours Fasting [...] - 12/16/2012 12:42 PM CDT Performed at [facility], [address] [place] [address] ??[id number] Ailsha Kimball MD LAB_1 Performing Organization Address City/State/ZIP Code Phon e Number [facility] [phone] documented in this encounter Visit Diagnoses Diagnosis Diabetes mellitus type II (HRC) Type II or unspecified type diabetes dinora litus without mention of complication, not stated as uncontrolled Hypercholesterolemia Pure hypercholesterolemia Elevated liver enzymes Nonspecific elevation of levels of trans aminase or lactic acid dehydrogenase (LDH) documented in this encounter Care Teams City Collector Relationship Specialty Start Date End Date Alisha Kimball MD PCP - General 07/08/05 [address] [place] [address] documented as of this encounter
--- OUTSIDE RECORDS SUMMARY | 2022-05-29 13:37 | XMS_ITS | Encounter Summary ---
:1955 Author Organization [employer] Address [address] [place] [address] Care Team Providers Name Role Phone Alisha Kimball MD Primary Care Provider Reason for Visit Reason Onset Date Comments CLASS,DIABETES DIABETES EDUCATION 09/29/2010 Encounter Details Date Type Department Care Team Description 09/30/2010 Office Visit [facility] DM w/o complication type [address] II, uncontrolled ([place] [address] Dx) [phone] Social History Tobacco Use Types Packs/Day Years [...] diabetes class series Diabetes -PuttingYourself In The Lockstitch Machine Operator's Seat using conversation maps. Incorporating appropriate nutritional [...] 06/09/2022 Appointment General Dentistry Elaine Garcia, [address] [address] [place], [place] [phone] (Wo rk) documented as of this encounter Visit Diagnoses Diagnosis Type II or unspecified type diabetes dinora litus without mention of complication, uncontrolled - Primary documented in this encounter Care Teams Piano Professor Relationship Specialty Start Date End Date Alisha Kimball MD PCP - General 07/08/05 [address] [place], [place] [phone] documented as of this encounter
--- OUTSIDE RECORDS SUMMARY | 2022-05-29 13:37 | XMS_ITS | Encounter Summary ---
:1955 Author Organization [facility] Address [address] [place] [address] Care Team Providers Name Role Phone Alisha Kimball MD Primary Care Provider Reason for Referral Specialty Diagnoses / Procedures Referred By Contact Refer red To Contact Alisha Kimball MD [address] [place] [address] Referral ID Status Reason Start Date Expiration Date Visits Requ ested Visits Authorized Scheduling Instructions [facility] an [facility] was advised and you have not been contacted to schedule that appo intment within 3 business days, please call [phone] for assistance. Specialty Diagnoses / Procedures Referred By Contact Refer red To Contact Alisha Kimball MD [address] [place] [address] Referral ID Status Reason Start Date Expiration Date Visits Requ ested Visits Authorized Scheduling Instructions If an appointment with [facility] was advised and you have not been contacted to schedule that appo intment within 3 business days, please call [phone] for assistance. Reason for Visit Reason Comments ROUTINE HEALTH MAINTENANCE Encounter Details Date Type Department Care Team Description 04/28/2010 Office Visit [facility] Alisha Kimball, [facility] (Primary Dx); Practice Breast screening, unspecified; 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 Otherwise as above. ROS: A comprehensive review [...] reflexes are intact and symmetric. Left lateral mid-pen tender. No erythema, edema, increased warmth. CMS [...] Tobacco Status reviewed? (see History: Social-Substance) -YES gas station attendant offered? -DECLINED. Aspirin taken daily? - YES Health Education given? -No. Patient's phone number Telephone Information: Mobile Not on file. Verónica Wilhelm LPN documented in this encounter Plan of Treatment Upcoming Encounters Date Type Specialty Care Team Description 06/09/2022 Appointment General Dentistry Elaine Garcia, [facility] [address] [place] [address] (Wo rk) Scheduled Referrals Name Type Priority [...] > Routine 04/28/2010 8:57 AM Diabetes mellit Results for this 8 HRS FASTING CDT screening procedure are in the results section. documented in this encounter Results MAMMOGRAM SCREENING BILATERAL (07/21/2010 9:27 AM TRANSPLANT COORDINATOR) Anatomical Region Laterality Modality Breast Bilateral Mammography Specimen (Source) Anatomical Location Collection Method / Collectio n Time Received Time / Laterality Volume Narrative 07/22/2010 2:03 PM TRANSPLANT COORDINATOR BILATERAL FULL FIELD DIGITAL SCREENING MAMMOGRAM Performed on 07/21/2010 Comparison: MAMMOGRAM SCREENING W/CAD BI LAT 07/16/09. Findings: The breasts have scattered fib roglandular densities. There is no radiographic evidence of malignancy.This study was evaluated with the assistance of Computer-Aided Detection. ??Repeat routine screening mammogram in one year is recommended. ACR BI-RADS Category 1: Negative Procedure Note Woo Mai Yu - 07/22/2010Formatting o f this note might [...] BONE DENSITY SPINE/HIP ROUTINE (05/15/2010 7:58 AM TRANSPLANT COORDINATOR) Anatomical Region Laterality Modality Lower Extremity, Spine, Hip, L-Spine Oth er Specimen (Source) Anatomical Location Collection Method / Collectio n Time Received Time / Laterality Volume Narrative 05/15/2010 8:11 AM TRANSPLANT COORDINATOR WHO Criteria for the diagnosis of osteoporosis: T-score >-1 Normal T-score between -1 and -2.5 Osteopenia T-score <-2.5 Osteoporosis Fracture risk: T-score -1 ?? 2 times increased ?-2 ?? 4 times incre ased ?-3 ?? 6 times incre ased *With previous fragility fracture, risk of subsequent fracture doubles again SCREENING FOR OSTEO, HOLD CALCIUM Steam Shovel Operating Engineer and Model of Instrument: UrGift Demographics Age: 55 yr Gender: female Height [...] Alcohol 3units or more per day (on Doodle Mobile):No Currently smoking:No If no, smoked for more [...] doubles again SCREENING FOR OSTEO, HOLD CALCIUM Steam Shovel Operating Engineer and Model of Instrument: UrGift Demographics Age: 55 yr Gender: female Height [...] Alcohol 3units or more per day (on Doodle Mobile):No Currently smoking:No If no, smoked for more [...] Glucose 134 (H) 70 - 100 [facility] mg/dl Hours Fasting 15 hours [facility] Specimen Anatomical Collection Method Collection Time Receive d Time (Source) Location / / Volume Laterality 04/28/2010 8:57 AM 0 9:03 CDT AM CDT Alisha Kimball MD LAB_1 Performing Organization Address City/[facility] Phon e Number [facility] [phone] [facility] [address] [phone] ALT (SGPT) (04/28/2010 8:57 AM CDT) P athologist Signature ALT (SGPT) 57 0 - 69 U/L [facility] Specimen Anatomical Collection Method Collection Time Receive d Time (Source) Location / / Volume Laterality 04/28/2010 8:57 AM 0 9:03 CDT AM CDT Alisha Kimball MD LAB_1 Performing Organization Address [facility] Phon e Number [employer] [phone] [facility] [address] [phone] CREATININE / GFR (04/28/2010 8:57 AM CDT) Analysis Performed At Patho logist Time Signature Creatinine 0.79 0.52 - [facility] 1.04 mg/dl GFR, Estimated >60.0 >60 [facility] ml/min/1.7 3m2 GFR, Est., If >60.0 >60 [facility] Black ml/min/1.7 3m2 Specimen Anatomical Collection Method Collection Time Receive d Time (Source) Location / / Volume Laterality 04/28/2010 8:57 AM 0 9:03 CDT AM CDT Alisha Kimball MD LAB_1 Performing Organization Address [facility]/ZIP [facility] Phon e Number [facility] [phone] [facility] [address] [place] [address] HEMOGRAM/PLTS (04/28/2010 8:57 AM CDT) P athologist Signature WBC 7.0 4.0 - 11.0 [facility] k/ul RBC 5.06 4.0 - 5.2 [facility] M/ul Hemoglobin 14.9 12.0 - 16.0 [facility] g/dl HCT 45.1 36.0 - 46.0 [facility] % MCV 89.2 80 - 100 fl [facility] MCH 29.5 26 - 34 pg [facility] MCHC 33.1 32 - 36 [facility] g/dl RDW 13.2 11.5 - 14.5 [facility] % Platelets 263 150 - 450 [facility] k/ul Specimen Anatomical Collection Method Collection Time Receive d Time (Source) Location / / Volume Laterality 04/28/2010 8:57 AM 0 9:03 CDT AM CDT Alisha Kimball MD LAB_1 Performing Organization Address City/[facility] Phon e Number [facility] [phone] [address] TSH, SENSITIVE (WITH REFLEX)[[id number]] - Clinics ONLY (04/28/2010 8:57 AM CDT) P athologist Signature TSH, with 1.966 0.465 - [facility] Reflex 4.68 uIU/ml Specimen Anatomical Collection Method Collection Time Receive d Time (Source) Location / / Volume Laterality 04/28/2010 8:57 AM 0 9:03 CDT AM CDT Alisha Kimball MD LAB_1 Performing Organization Address City/[facility]/ZIP [facility] Phon e Number [facility] [phone] [address] (ABNORMAL) LIPID PANEL AND DIRECT LDL(IF NEEDED) (04/28/2010 8:57 AM CDT) [facility] Method Time Signature Cholesterol 241 (H) 0 - 199 [facility] mg/dl Triglyceride 202 (H) 0 - 149 [facility] mg/dl HDL 44 >40 mg/dl [facility] LDL, Calc. 157 (H) 0 - 129 [facility] mg/dl Hours Fasting 15 hours [facility] Specimen Anatomical Collection Method Collection Time Receive d Time (Source) Location / / Volume Laterality 04/28/2010 8:57 AM 0 9:03 CDT AM CDT Alisha Kimball MD LAB_1 Performing Organization Address [facility] Phon e Number [employer] [phone] [address] documented in this encounter [...] unspecified documented in this encounter Care Teams Antitank Assault Gunner Relationship Specialty Start Date End Date Alisha Kimball MD PCP - General 07/08/05 [address] [place] [address] documented as of this encounter
--- OUTSIDE RECORDS SUMMARY | 2022-05-29 13:37 | XMS_ITS | Encounter Summary ---
:1955 Author Organization [employer] Address [address] [place] [address] Care Team Providers Name Role Phone Alisha Kimball MD Primary Care Provider Reason for Visit Reason Onset Date Comments LAB TESTS, NOS 10/26/2011 Encounter Details Date Type Department Care Team Description 10/26/2011 Telephone [facility] Alisha Steinberg MD LAB TESTS, NOS [address] [place] [address] [place] [address] [phone] (Wo rk) Social History Tobacco Use Types [...] we do not have the appropriate sample. [facility]. documented in this encounter Plan of Treatment Upcoming Encounters Date Type Specialty Care Team Description 06/09/2022 Appointment General Dentistry Elaine Garcia, [facility] [address] [place], [place] [phone] (Wo rk) documented as of this encounter Visit Diagnoses Not on filedocumented in this encounter Care Teams Gas Furnace Installer Relationship Specialty Start Date End Date Alisha Kimball MD PCP - General 07/08/05 [address] [place], [place] [phone] documented as of this encounter
--- OUTSIDE RECORDS SUMMARY | 2022-05-29 13:37 | XMS_ITS | Encounter Summary ---
:1955 Author Organization [employer] Address [address] [place] [address] Care Team Providers Name Role Phone Alisha [...] (Pr imary Dx) Surgery [address] [place] [address] Social History Tobacco Use Types Packs/Day Years Used Date Smoking Tobacco: Never Alcohol Use Standard Drinks/Week Comments Not Asked 0 (1 standard drink = 0.6 oz pure alcoho l) Sex Assigned at Date Recorded Not on file documented as of this encounter Last Filed Vital Signs Vital Sign Reading Time Taken Comments Blood Pressure 98/58 05/26/2010 2:55 PM GAS TESTER Pulse 64 05/26/2010 2:55 PM GAS TESTER Temperature 36.4 ??C (97.5 ??F) 05/26/2010 2:55 PM GAS TESTER Respiratory Rate - - Oxygen Saturation - [...] and patient would like to continue with qozp-akw-gjvkjpu products. Discussed some general stretching and range of motion exercises, alsodiscussed shoewear and important features. She did not want to consider a cortisone injection at this time and will followup if her symptoms worsen. She will continue oral anti-inflammatory medication as tolerated and needed. All questions were answered. Travis Lanza DPM TESTER documented in this encounter Plan of Treatment Upcoming Encounters Date Type Specialty Care Team Description 06/09/2022 [facility]ment [facility] [address] [place] [address] (Wo rk) Scheduled Referrals Name Type Priority Associated Diagnoses Order S chedule FOOT & ANKLE/PODIATRY Referral Routine Foot pain Ordere d: 04/28/2010 CONSULT-ADULT/PEDS documented as of this encounter Visit Diagnoses Diagnosis Osteoarthritis of foot joint - Primary Osteoarthrosis, unspecified whether gene ralized or localized, ankle and foot documented in this encounter Care Teams Coater Slate Relationship Specialty Start Date End Date Alisha Kimball MD PCP - General 07/08/05 [address] [place] [address] documented as of this encounter
--- OUTSIDE RECORDS SUMMARY | 2022-05-29 13:37 | XMS_ITS | Encounter Summary ---
:1955 Author Organization [facility] Address [address] [place] [address] Care Team Providers Name Role Phone Alisha Kimball MD Primary Care Provider Reason for Visit Reason Onset Date Comments RESULTS, X-RAY 04/02/2008 Encounter Details Date Type Department Care Team Description 04/02/2008 Telephone [facility] Alexis Frazier, PAMehreenC RESULTS, X-RAY [address] [place] [address] [place], [place] [address] (Wo rk) Social History Tobacco Use Types [...] Description 06/09/2022 Appointment General Dentistry Elaine Garcia, [address] [place] [address] (Wo rk) documented as of this encounter Visit Diagnoses Not on filedocumented in this encounter Care Teams Parks Recreation Director Relationship Specialty Start Date End Date Alisha Kimball MD PCP - General 07/08/05 [address] [place] [address] documented as of this encounter
--- OUTSIDE RECORDS SUMMARY | 2022-05-29 13:37 | XMS_ITS | Encounter Summary ---
:1955 Author Organization Counts include 234 beds at the [facility] Address [address] [place] [address] Care Team Providers Name Role Phone Alisha Kimball MD Primary Care Provider Encounter Details Date Type Department Care Team Description 07/21/2010 Imaging [facility] Cari cancer screening Mammography [address] [place] [address] Social History Tobacco Use Types [...] Dentistry Elaine Garcia, [facility] [address] [place] [address] (Wo rk) documented as of this encounter Procedures Procedure Name Priority Date/Time Associated Diagnosis Comme nts MM MAMMOGRAM Routine 07/21/2010 9:27 AM Breast cancer Results for this SCREENING BILAT W RN PROCEDURES screening procedure are in CAD the results section. documented in this encounter Results MAMMOGRAM SCREENING BILATERAL (07/21/2010 9:27 AM RN PROCEDURES) Anatomical Region Laterality Modality Breast Bilateral Mammography Specimen (Source) Anatomical Location Collection Method / Collectio n Time Received Time / Laterality Volume Narrative 07/22/2010 2:03 PM RN PROCEDURES BILATERAL FULL FIELD DIGITAL SCREENING MAMMOGRAM Performed [...] unspecified documented in this encounter Care Teams Instrument Mechanic Relationship Specialty Start Date End Date Alisha Kimball MD PCP - General 07/08/05 [address] [place] [address] documented as of this encounter
--- OUTSIDE RECORDS SUMMARY | 2022-05-29 13:37 | XMS_ITS | Encounter Summary ---
:1955 Author Organization [facility] [facility] Address [address], [place] [address] Care Team Providers Name Role Phone Alisha Kimball MD Primary Care Provider Reason for Visit Reason Comments ROUTINE HEALTH MAINTENANCE eyes are burning/ ears itch y for a while/ refill bp med/ check varicose veins are itc hy/ pap/ breast exam Encounter Details Date Type Department Care Team Description 10/24/2012 Office Visit [facility] Alisha Kimball, [facility] (Primary Dx); Practice MD Screening breast examination; [address] Breast cancer screening; [place] [address] [place] [address] Diabetes mellitus type II (HRC); [phone] Hypertension; (Work) Dry eyes; Varicose veins of [...] Patient Instructions Patient InstructionsAlisha Kimball MD - 10/24/2012 9:26 AM CDT Images from the original note were not included. Understanding Optimal Diabetes Care Goals The five optimal diabetes care goals shown below were designed to measure how well your diabetes is being managed. When all five goals are achieved, your risk for health problems associated with diabetes is greatly reduced. The [facility] Team is available to help you reach your goals. Diabetes is a disease requiring daily attention. For this reason, you are the most important person of the [facility] Diabetes Team. Name: Loc Velasco Guideline Goal [...] a list of these classes, please visit [email or web address] and click on the Health and Wellness tab or call the appointment center at [phone] to register for a class. Depending on [...] your eyes. Do not rub your eyes. Autw-bnj-peoirni artificial tears may help you when you [...] Where can you learn more? Go to [employer] and enter D231 in the search box. Last Revised: September 19, 2010 ?? [phone] [employer]. documented in this encounter Progress Notes [...] Hysterectomy 1999 menorrhagia ??? Other - procedures 1999 FREDERICK [...] The patient is and works for the [employer]. Otherwise as above. ROS: A comprehensive review of systems was done today and was significant for a few concerns. 1. Not checking glucoses. Has lost some weight. 2. Bilateral itchy, watery, red eyes for months. No eye pain or vision changes. No discharge. No history of allergic rhinitis. Using Visine gbcp-dwx-nwstgqo and seems to help, but needs to [...] Symptomatic varicose veins. She will schedule with [facility]. Phone number supplied. Alisha Kimball MD documented in this encounter Plan of Treatment Upcoming Encounters Date Type Specialty Care Team Description 06/09/2022 Appointment General Dentistry Elaine Garcia, [facility] [address] [place] [address] (Wo rk) documented as of this encounter [...] Kimball MD LAB_1 Performing Organization Address [facility] Phon e Number [facility] [employer] [facility] [phone] [facility] [address] [place] [phone] CREATININE / GFR (10/24/2012 9:45 AM CDT) Analysis Performed At [facility] logist Time Signature Creatinine 0.68 0.52 - [facility] 1.04 mg/dl GFR, Estimated >60.0 >60 [facility] ml/min/1.7 3m2 GFR, Est., If >60.0 >60 [facility] Black ml/min/1.7 3m2 Specimen Anatomical Collection Method Collection Time Receive d Time (Source) Location / / Volume Laterality 10/24/2012 9:45 AM 3 9:52 CDT AM CDT Alisha Kimball MD LAB_1 Performing Organization Address [facility] Phon e Number [employer] [phone] [facility] [address] [place] [phone] (ABNORMAL) ALT (SGPT) (10/24/2012 9:45 AM CDT) P athologist Signature ALT (SGPT) 72 (H) 0 - 69 U/L [facility] Specimen Anatomical Collection Method Collection Time Receive d Time (Source) Location / / Volume Laterality 10/24/2012 9:45 AM 3 9:52 CDT AM CDT Alisha Kimball MD LAB_1 Performing Organization Address [facility] Phon e Number [facility] [phone] [facility] [address] [place] [phone] (ABNORMAL) LIPID PANEL AND DIRECT LDL(IF NEEDED) (10/24/2012 9:45 AM CDT) [facility] gist Method Time Signature Cholesterol 242 (H) 0 - 199 [facility] mg/dl Triglyceride 242 (H) 0 - 149 [facility] mg/dl HDL 43 >40 mg/dl [facility] LDL, Calc. 151 (H) 0 - 129 [facility] mg/dl Non HDL Chol, 199 mg/dl [facility] Calc Hours Fasting 14 hours [facility] Specimen Anatomical Collection Method Collection Time Receive d Time (Source) Location / / Volume Laterality 10/24/2012 9:45 AM 3 9:52 CDT AM CDT Alisha Kimball MD LAB_1 Performing Organization Address [facility] Phon e Number [facility] [phone] [address] documented in this encounter Visit [...] complications documented in this encounter Care Teams Machine Rug Cleaner Relationship Specialty Start Date End Date Alisha Kimball MD PCP - General 07/08/05 [address] [place] [address] documented as of this encounter
--- OUTSIDE RECORDS SUMMARY | 2022-05-29 13:37 | XMS_ITS | Encounter Summary ---
:1955 Author Organization [employer] Address [address] [place] [address] Care Team Providers Name Role Phone Alisha Kimball MD Primary Care Provider Reason for Visit Reason Comments LAB RESULTS glucose Encounter Details Date Type Department Care Team Description 04/28/2010 Telephone [facility] Alisha Kimball MD LAB RESULTS (glucose) Practice [address] [place] [address] [place], [place] [id number] [phone] Social History Tobacco Use Types Packs/Day Years [...] lab for the blood draw. Francesca Cho Alisha Vazquez - 04/28/2010 10:37 PM CDT Please call [...] Description 06/09/2022 Appointment General Dentistry Elaine Garcia asa May, [facility] [address] [place] [address] (Wo rk) documented as of this encounter Results (ABNORMAL) GLUCOSE - FASTING > 8 HRS FASTING (V77.1) (05/14/2010 7:35 AM RESIDENT CARE ASSISTANT) Patholo gist Method Time Signature Glucose 106 (H) 70 - 100 [facility] mg/dl Hours Fasting 12 hours [facility] Specimen Anatomical Collection Method Collection Time Receive d Time (Source) Location / / Volume Laterality 05/14/2010 7:35 AM 0 7:46 RESIDENT CARE ASSISTANT AM RESIDENT CARE ASSISTANT Alisha Kimball MD LAB_1 Performing Organization Address City/[facility] Phon e Number [employer] [phone] [facility] [address] [place] [address] (ABNORMAL) HGB A1C (05/14/2010 7:35 AM RESIDENT CARE ASSISTANT) P athologist Signature Hgb A1c 7.4 (H) 4.3 - 6.1 % [facility] Comment: The usual A1C goal for people with diabe jaci, age 18-75, is < 7.0%. Physicians may recommend a higher or lo wer goal for specific individuals. Specimen Anatomical Collection Method Collection Time Receive d Time (Source) Location / / Volume Laterality 05/14/2010 7:35 AM 0 7:46 RESIDENT CARE ASSISTANT AM RESIDENT CARE ASSISTANT Alisha Kimball MD LAB_1 Performing Organization Address City/[facility] Phon e Number [employer] [phone] [address] documented in this encounter Visit Diagnoses Diagnosis Hyperglycemia - Primary Other abnormal glucose documented in this encounter Care Teams Anode Worker Relationship Specialty Start Date End Date Alisha Kimball MD PCP - General 1/4/06 [address] [place] [address] documented as of this encounter
--- OUTSIDE RECORDS SUMMARY | 2022-05-29 13:37 | XMS_ITS | Encounter Summary ---
:1955 Author Organization [facility] Address [address] [place] [address] Care Team Providers Name Role Phone Alisha Kimball MD Primary Care Provider Reason for Visit Reason Comments EXAM,ROUTINE patient is having problems w ith her near vison, she currently wears no glasses Encounter Details Date Type Department Care Team Description 04/28/2010 Office Visit [facility] Lebron Alfaro, Examination of eyes and visi on (Primary Dx); [address] OD Myopia; [place] [address] Presbyopia [phone] Social History Tobacco Use Types Packs/Day Years Used Date Smoking Tobacco: Never Alcohol Use Standard Drinks/Week Comments Not Asked 0 (1 standard drink = 0.6 oz pure alcoho l) Sex Assigned at Date Recorded Not on file documented as of this encounter Patient Instructions Patient InstructionsLebron Alfaro, OD - 04/28/2010 10:46 AM CDT [facility]. Many tests [...] the clinic in the future? Appointment Center: [phone] Eye Dept: [phone] Online Services: [email or web address] For after hours care, call the CareLine at [phone] or . We look forward to taking care of your eye care needs in the years to come. documented in this encounter Progress Notes Lebron Alfaro, RAJEEV - 04/28/2010 11:07 AM CDT HPI Chief [...] Dentistry Elaine Garcia, [facility] [address] [place], [place] [phone] (Wo rk) documented as of this encounter Visit Diagnoses Diagnosis Examination of eyes and vision - Primary Myopia Presbyopia documented in this encounter Care Teams Sanitary Landfill Supervisor Relationship Specialty Start Date End Date Alisha Kimball MD PCP - General 07/08/[address] [place] [address] documented as of this encounter
--- OUTSIDE RECORDS SUMMARY | 2022-05-29 13:37 | XMS_ITS | Encounter Summary ---
:1955 Author Organization [facility] Address [address] [place] [address] Care Team Providers Name Role Phone Alisha Kimball MD Primary Care Provider Reason for Visit Reason Onset Date Comments QUESTIONS, GENERAL 11/04/2011 Encounter Details Date Type Department Care Team Description 11/04/2011 Telephone [facility] maxi Alisha Kimball MD QUESTIONS, GENERAL [address] [place] [address] [place], [place] [phone] (Wo rk) Social History Tobacco Use Types Packs/Day Years Used Date Smoking Tobacco: Never Alcohol Use Standard Drinks/Week Comments No 0 (1 standard drink = 0.6 oz pure alcoho l) Sex Assigned at Date Recorded Not on file documented as of this encounter Nursing Notes Francesca Cho CMA - 11/04/2011 9:45 AM CDT Patient informed and agree's with plan. I sent her to [facility] to schedule with procedure nurse. TOT [...] General Dentistry Elaine Garcia, [facility] [address] [place], [place] [phone] (Wo rk) documented as of this encounter Visit Diagnoses Not on filedocumented in this encounter Care Teams Seasonal Sales Associate Relationship Specialty Start Date End Date Alisha Kimball MD PCP - General 07/08/05 [address] [place], [place] [phone] documented as of this encounter
--- OUTSIDE RECORDS SUMMARY | 2022-05-29 13:37 | XMS_ITS | Encounter Summary ---
:1955 Author Organization [facility] Address [address], [place] [address] Care Team Providers Name Role Phone Alisha Kimball MD Primary Care Provider Reason for Referral Specialty Diagnoses / Procedures Referred By Contact Refer red To Contact Alexis Ponce PA -C [address], [place] [address] Referral ID Status Reason Start Date Expiration Date Visits Requ ested Visits Authorized Scheduling Instructions If an appointment with [facility] Fo ot and Ankle Surgery was advised and you have not been contacted to schedule that appo intment within 3 business days, please call [phone] for assistance. Reason for Visit Reason Comments ANKLE PAIN Lt ankle into foot pain x 2 weeks swollen by end of day may have stepped off stairs wrong. Unable to sleep due to pain Encounter Details Date Type Department Care Team Description 03/29/2008 Office Visit [facility] Alexis Ponce Foot Pa in (Primary Dx) Practice EMILY [address] [address] [place], [place] [phone] Social History Tobacco Use Types Packs/Day Years [...] Body Mass Index 30.11 08/09/2007 4:16 PM PALM AND BACK FORGER documented in this encounter Patient Instructions Patient [...] couple times daily. Follow up with the continuous miner. documented in this encounter Progress Notes Alexis [...] [facility] [address] [place] [address] (Wo rk) Scheduled Referrals Name Type Priority [...] limb documented in this encounter Care Teams Process Architect Relationship Specialty Start Date End Date Alisha Kimball MD PCP - General 07/08/05 [address] [place] [address] documented as of this encounter
--- OUTSIDE RECORDS SUMMARY | 2022-05-29 13:37 | XMS_ITS | Encounter Summary ---
:1955 Author Organization [employer] Address [address] [place] [address] Care Team Providers Name Role Phone Alisha Kimball MD Primary Care Provider Encounter Details Date Type Department Care Team Description 05/15/2010 Imaging [facility] [address] history of Bone Density osteoporosis [address] [place] [address] Social History Tobacco Use Types [...] Dentistry Elaine Garcia, [facility] [address] [place] [address] (Wo rk) documented as of this encounter Procedures Procedure Name Priority Date/Time Associated Diagnosis Comme nts DXA BONE DENSITY Routine 05/15/2010 7:58 AM Family history of Results for this SPINE/HIP ALUMINUM CAN COLLECTOR osteoporosis procedure are i n the results section. documented in this encounter Results DEXA BONE DENSITY SPINE/HIP ROUTINE (05/15/2010 7:58 AM ALUMINUM CAN COLLECTOR) Anatomical Region Laterality Modality Lower Extremity, Spine, Hip, L-Spine Oth er Specimen (Source) Anatomical Location Collection Method / Collectio n Time Received Time / Laterality Volume Narrative 05/15/2010 8:11 AM ALUMINUM CAN COLLECTOR WHO Criteria for the diagnosis of osteoporosis: T-score >-1 Normal T-score between -1 and -2.5 Osteopenia T-score <-2.5 Osteoporosis Fracture risk: T-score -1 ?? 2 times increased ?-2 ?? 4 times incre ased ?-3 ?? 6 times incre ased *With previous fragility fracture, risk of subsequent fracture doubles again SCREENING FOR OSTEO, HOLD CALCIUM Driver Salesman and Model of Instrument: [employer] NLG Demographics Age: 55 yr Gender: female Height (inches) :5' 4.1 Weight (lbs):190 lbs BMI:Body mass index is 32.51 lbs/(in^2). Country of origin:[facility] Race: Medical/Surgical History Menstrual periods:1-None Age of [...] Alcohol 3units or more per day (on AisleFinder):No Currently smoking:No If no, smoked for more [...] doubles again SCREENING FOR OSTEO, HOLD CALCIUM Driver Salesman and Model of Instrument: Arria NLG Demographics Age: 55 yr Gender: female Height (inches) :5' 4.1 Weight (lbs):190 lbs BMI:Body mass index is 32.51 lbs/(in^2). Country of origin:[facility] Race: Medical/Surgical History Menstrual periods:1-None Age of [...] osteoporosis documented in this encounter Care Teams Insurance Sales Agent Relationship Specialty Start Date End Date Alisha Kimball MD PCP - General 07/08/05 [address] [place] [address] documented as of this encounter
--- OUTSIDE RECORDS SUMMARY | 2022-05-29 13:37 | XMS_ITS | Encounter Summary ---
:1955 Author Organization [employer] Address [address], [place] [address] Care Team Providers Name Role Phone Alisha Kimball MD Primary Care Provider Reason for Visit Reason Comments FOLLOW-UP,BP Encounter Details Date Type Department Care Team Description 05/07/2009 Office Visit [facility] Alisha Kimball, Elevated Blood Pressure (Primary Dx); Practice MD Breast Screening, Unspecified [address] [facility]. [address] [place] [address] [place] [address] [phone] Social History Tobacco Use Types Packs/Day Years Used Date Smoking Tobacco: Never Alcohol Use Standard Drinks/Week Comments Not Asked 0 (1 standard drink = 0.6 oz pure alcoho l) Sex Assigned at Date Recorded Not on file documented as of this encounter Last Filed Vital Signs Vital Sign Reading Time Taken Comments Blood Pressure 120/78 05/07/2009 8:35 AM SPECTROGRAPHER Pulse 76 05/07/2009 8:35 AM SPECTROGRAPHER Temperature - - Respiratory Rate 16 05/07/2009 8:35 AM SPECTROGRAPHER Oxygen Saturation - - Inhaled Oxygen Concentration - - Weight 84.8 kg (187 lb) 05/07/2009 8:35 AM SPECTROGRAPHER Height - - Body Mass Index 32.1 08/09/2007 4:16 PM SPECTROGRAPHER documented in this encounter Progress Notes Alisha Kimball - 05/07/2009 9:20 AM CST S: Loc Velasco is a 54 yr old female never smoker seen with concerns about her blood pressure. She was seeing her dentist last week for a tooth abscess (which she is successfully treating with PCN)and her blood pressure was 160's/108. She had it checked yesterday and it was 150/110. She has a remote history of hypertension and was on medication until she lost weight and was able to go off. Both parents have hypertension. Occasional morning headaches or blurry vision. Good exercise tolerance. Nouse of Sudafed/jhla-luh-middtlu decongestants. Rare EtOH and caffeine use. O: BP 120/78 Pulse 76 Resp 16 Wt 187 lb (84.823 kg) LMP Hysterectomy. General: NAD. HEENT: no icterus. Fundi benign. Neck: supple. No LAD. No thyromegaly or mass. No bruit. Lungs: CTA bilaterally with good and equal air movement. CV: RRR, normal S1 and S2. No murmur, rub, or gallop. Peripheral pulses full and equal. Abdomen: active bowel sounds, soft, nontender. No organomegaly or mass. Extremities: no cyanosis, clubbing, or edema. A/P: Elevated blood pressure with a history of hypertension. For now, would observe without medication and have her check her blood pressure occasionally outside the clinic. She is aware of guidelines and will call if her blood pressure stays elevated. Alisha Kimball MD TROGRAPHER documented in this encounter Plan of Treatment Upcoming Encounters Date Type Specialty Care Team Description 06/09/2022 Appointment [facility] [address] [place] [address] (Wo rk) documented as of this encounter Results MAMMOGRAM SCREENING BILATERAL [[id number]] (07/16/2009 8:43 AM SPECTROGRAPHER) Anatomical Region Laterality Modality Breast Bilateral Mammography Specimen (Source) Anatomical Location Collection Method / Collectio n Time Received Time / Laterality Volume Narrative 07/17/2009 1:31 PM SPECTROGRAPHER BILATERAL FULL FIELD DIGITAL SCREENING MAMMOGRAM Performed [...] in this encounter Visit Diagnoses Diagnosis Elevated blood pressure - Primary Elevated blood pressure reading without diagnosis of hypertension Breast screening, unspecified Breast screening, unspecified documented in this encounter Care Teams Arc And Gas Welder Relationship Specialty Start Date End Date Alisha Kimball MD PCP - General 07/08/05 [address] [place] [address] documented as of this encounter
--- OUTSIDE RECORDS SUMMARY | 2022-05-29 13:37 | XMS_ITS | Encounter Summary ---
:1955 Author Organization [employer] Address [address], [place] [address] Care Team Providers Name Role Phone Alisha Kimball MD Primary Care Provider Reason for Visit Reason Onset Date Comments Blood Glucose Readings 11/15/2012 Encounter Details Date Type Department Care Team Description 11/15/2012 Telephone [facility] Alisha Kimball MD Blood Glucose Readings Practice [address] [place] [address] [place] [address] [phone] Social History Tobacco Use Types Packs/Day Years [...] return for lab work. Lety Cabrera CMA Francesac Cho CMA - 11/24/2012 3:12 PM CDT [...] she doing OK with the atorvastatin? Thanks! Alisah Kimball MD Crystal Lindsay - 11/15/2012 8:10 [...] Dentistry Elaine Garcia, [facility] [address] [place], [place] [phone] (Wo rk) documented as of this encounter Visit Diagnoses Not on filedocumented in this encounter Care Teams Surgery Teacher Relationship Specialty Start Date End Date Alisha Kimball MD PCP - General 07/08/05 [address] [place] [address] documented as of this encounter
--- OUTSIDE RECORDS SUMMARY | 2022-05-29 13:37 | XMS_ITS | Encounter Summary ---
:1955 Author Organization [email or web address] Address [address] [place] [address] Care Team Providers Name Role Phone Alisha Kimball MD Primary Care Provider Reason for Visit Reason Onset Date Comments DIABETES EDUCATION 09/26/2010 Encounter Details Date Type Department Care Team Description 09/24/2010 Office Visit [facility] Diabetes u ncomplicated Program adult-type II (Primary Dx) [address] [place] [address] Social History Tobacco Use Types [...] diabetes class series Diabetes -PuttingYourself In The Photo Print Specialist's Seat using conversation maps. Referring provider: Alisha [...] Dentistry Elaine Garcia, [facility] [address] [place] [address] (Wo rk) documented as of this encounter Visit Diagnoses Diagnosis Diabetes uncomplicated adult-type II - P rimary Type II or unspecified type diabetes dinora litus without mention of complication, not stated as uncontrolled documented in this encounter Care Teams Sculpture Conservator Relationship Specialty Start Date End Date Alisha Kimball MD PCP - General 07/08/05 [address] [place], [place] [phone] documented as of this encounter
--- OUTSIDE RECORDS SUMMARY | 2022-05-29 13:37 | XMS_ITS | Encounter Summary ---
:1955 Author Organization [employer] Address [address], [place] [address] Care Team Providers Name Role Phone Alisha Kimball MD Primary Care Provider Reason for Visit Reason Comments ROUTINE HEALTH MAINTENANCE no pap today/ breast exam Encounter Details Date Type Department Care Team Description 10/26/2011 Office Visit [facility] Alisha Kimball, [facility] (Primary Dx); Practice MD Diabetes mellitus type II ([facility]); [address] Screening breast examination; [place] [address] [place] [address] Hypertension [phone] Social History Tobacco Use Types Packs/Day Years [...] associated with diabetes is greatly reduced. The [employer] Diabetes Team is available to help you reach your goals. Diabetes is a disease requiring daily attention. For this reason, you are the most important person of the [employer] Diabetes Team. Name: Loc Velasco Guideline Goal [...] a list of these classes, please visit [email or web address] and click on the Health and Wellness tab or call the appointment center at [phone] to register for a class. Depending on [...] ??? MULTIPLE VITAMIN OR None Entered ??? [place]-3 Fatty Acids (FISH OIL OR) ??? 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 Otherwise as above. ROS: A comprehensive review [...] General Dentistry Elaine Garcia, [facility] [address] [place], [place] [phone] (Wo rk) documented as of this encounter Visit Diagnoses Diagnosis Preventative health care - Primary Routine general medical examination at a health care facility Diabetes mellitus type II (HRC) Type II or unspecified type diabetes dinora litus without mention of complication, not stated as uncontrolled Screening breast examination Other screening breast examination Hypertension (HRC) Unspecified essential hypertension documented in this encounter Care Teams Erecting Engineer Relationship Specialty Start Date End Date Alisha Kimball MD PCP - General 07/08/05 [address] [place] [address] documented as of this encounter
--- OUTSIDE RECORDS SUMMARY | 2022-05-29 13:37 | XMS_ITS | Encounter Summary ---
:1955 Author Organization [facility] Address [address] [place] [address] Care Team Providers Name Role Phone Alisha Kimball MD Primary Care Provider Encounter Details Date Type Department Care Team Description 09/21/2011 Imaging [facility] [address] [place] [address] Social History Tobacco Use Types [...] Elaine Garcia, [facility] [address] [place], [place] [phone] (Wo rk) documented as of this encounter [...] on filedocumented in this encounter Care Teams Distribution Lead Relationship Specialty Start Date End Date Alisha Kimball MD PCP - General 07/08/05 [address] [place] [address] documented as of this encounter
--- OUTSIDE RECORDS SUMMARY | 2022-05-29 13:37 | XMS_ITS | Encounter Summary ---
:1955 Author Organization [employer] Address [address] [place] [address] Care Team Providers Name Role Phone Alisha Kimball MD Primary Care Provider Reason for Visit Reason Comments DIABETES, MELLITUS Encounter Details Date Type Department Care Team Description 10/31/2012 Office Visit [facility] Alisha Kimball, Diabetes mellitus type II (HRC) (Primary Dx); Practice MD Need for prophylactic vaccination agains t Streptococcus pneumoniae (pneumococcus); [address] Hypercholesterolemia; [place] [address] [place], [place] Elevated liver enzymes [phone] Social History Tobacco Use Types Packs/Day Years [...] Lab Only appointment online or by calling [phone]. Understanding Optimal Diabetes Care Goals The five optimal diabetes care goals shown below were designed to measure how well your diabetes is being managed. When all five goals are achieved, your risk for health problems associated with diabetes is greatly reduced. The [employer] Diabetes Team is available to help you reach your goals. Diabetes is a disease requiring daily attention. For this reason, you are the most important person of the [employer] Diabetes Team. Name: Loc Velasco Guideline Goal [...] a list of these classes, please visit [email or web address] and click on the Health and Wellness tab or call the appointment center at [phone] to register for a class. Depending on your insurance coverage, a fee to participate in certain classes may apply documented in this encounter Progress Notes Alisha Kimball MD - 10/31/2012 8:01 PM CDT S: Loc Velasco is a 57 yr old female never smoker seen for follow up of her type 2 diabetes. Shewas seen for a [facility] visit recently and she had her labs [...] committed to weight loss and exercise. Declines crusher plant operator and diabetes nurse visits. See the patient instructions. 2. Hypercholesterolemia. Not at goal. Discussed recommendations and she will try atorvastatin. Will follow liver enzymes. Likely has fatty liver. Additional labs as ordered. Alisha Kimball MD documented in this encounter Plan of Treatment Upcoming Encounters Date Type Specialty Care Team Description 06/09/2022 Appointment General Dentistry Elaine Garcia, [facility] [address] [place] [address] (Wo rk) documented as of this encounter [...] 12/16/2012 2:00 PM C DT Performed at [facility], [address] [place] [id number] Alisha Kimball MD LAB_1 Performing Organization Address [facility] Phon e Number [facility] [phone] LIVER PANEL(HEPATIC FUNCTION PANEL) (12/16/2012 7:33 AM [...] - 12/16/2012 12:42 PM CDT Performed at [facility], [address] [place] [id number] Alisha Kimball MD LAB_1 Performing Organization Address City/[facility] Phon e Number [facility] [phone] LIPID PANEL AND DIRECT LDL(IF NEEDED) (12/16/2012 7:33 AM CDT) [facility] gist Method Time Signature Hours Fasting [...] - 12/16/2012 12:42 PM CDT Performed at [facility], [address] [place] [id number] Alisha Kimball MD LAB_1 Performing Organization Address City/State/ZIP Code Phon e Number [facility] [phone] documented in this encounter Visit Diagnoses Diagnosis [...] (LDH) documented in this encounter Care Teams Minute Clerk Relationship Specialty Start Date End Date Alisha Kimball MD PCP - General 07/08/05 [address] [place] [address] documented as of this encounter
--- OUTSIDE RECORDS SUMMARY | 2022-05-29 13:37 | XMS_ITS | Encounter Summary ---
:1955 Author Organization [facility] Address [address] [place] [address] Care Team Providers Name Role Phone Alisha Kimball MD Primary Care Provider Encounter Details Date Type Department Care Team Description 03/29/2008 Imaging [facility] Foot Pain [address] [place] [address] Social History Tobacco Use Types [...] General Dentistry Elaine Garcia, [facility] [address] [place], [place] [phone] (Wo rk) documented as of this encounter [...] spurrin g of the calcaneus. Procedure Note Malgorzata, Luis Roel - 04/02/2008For matting of this note might be different from the original. LEFT FOOT 3 VIEWS 03/29/08 INDICATION: Pain. IMPRESSION: No fractures identified. Plantar spurrin g of the calcaneus. Alexis DANGELO GD documented in this encounter Visit Diagnoses Diagnosis Foot pain Pain in limb documented in this encounter Care Teams Toby Maker Relationship Specialty Start Date End Date Alisha Kimball MD PCP - General 07/08/05 [address] [place] [address] documented as of this encounter
--- OUTSIDE RECORDS SUMMARY | 2022-05-29 13:37 | XMS_ITS | Encounter Summary ---
:1955 Author [facility] Address [address] [place] [address] Care Team Providers Name Role Phone Alisha Kimball MD Primary Care Provider Encounter Details Date Type Department Care Team Description 05/14/2010 Orders Only [facility] Hyperglycemia [address] [place] [address] Social History Tobacco Use Types [...] General Dentistry Elaine Garcia, [facility] [address] [place] [address] (Wo rk) documented as of this encounter Procedures Procedure Name Priority Date/Time Associated Diagnosis Comme nts HGB A1C Routine 05/14/2010 7:35 AM Hyperglycemia Results for this CLOTHING PRESSER procedure are i n the results section. GLUCOSE - FASTING > Routine 05/14/2010 7:35 AM Hyperglycemia R esults for this 8 HRS FASTING CLOTHING PRESSER procedure are in the results section. documented in this encounter Results (ABNORMAL) GLUCOSE - FASTING > 8 HRS FASTING (V77.1) (05/14/2010 7:35 AM CLOTHING PRESSER) [facility] Method Time Signature Glucose 106 (H) 70 - 100 [facility] mg/dl Hours Fasting 12 hours [facility] Specimen Anatomical Collection Method Collection Time Receive d Time (Source) Location / / Volume Laterality 05/14/2010 7:35 AM 0 7:46 CLOTHING PRESSER AM CLOTHING PRESSER Alisha Kimball MD LAB_1 Performing Organization Address [facility] Phon e Number [facility] [employer] [phone] [phone] (ABNORMAL) HGB A1C (05/14/2010 7:35 AM CLOTHING PRESSER) athologist Signature Hgb A1c 7.4 (H) 4.3 - 6.1 % [facility] Comment: The usual A1C goal for people with diabe jaci, age 18-75, is < 7.0%. Physicians may recommend a higher or lo wer goal for specific individuals. Specimen Anatomical Collection Method Collection Time Receive d Time (Source) Location / / Volume Laterality 05/14/2010 7:35 AM 0 7:46 CLOTHING PRESSER AM CLOTHING PRESSER Alisha Kimball MD LAB_1 Performing Organization Address [facility] Phon e Number [facility] [employer] [phone] [phone] documented in this encounter Visit Diagnoses Diagnosis Hyperglycemia Other abnormal glucose documented in this encounter Care Teams Heavy Forger Helper Relationship Specialty Start Date End Date Alisha Kimball MD PCP - General 07/08/05 [address] [place] [address] documented as of this encounter
--- OUTSIDE RECORDS SUMMARY | 2022-05-29 13:37 | XMS_ITS | Encounter Summary ---
:1955 Author Organization [facility] Address [address] [place] [address] Care Team Providers Name Role Phone Alisha Kimball MD Primary Care Provider Encounter Details Date Type Department Care Team Description 10/24/2011 Orders Only [facility] Diabetes mellitus type II [address] (HRC) [place] [address] Social History Tobacco Use Types [...] [facility] [address] [place], [place] [phone] (Wo rk) documented as of this encounter Procedures Procedure Name Priority Date/Time Associated Diagnosis Comme nts HGB A1C Routine 10/24/2011 9:31 AM Diabetes mellitus Resu lts for this CDT type II ([facility]) procedure are in the results section . documented in this encounter Results (ABNORMAL) HGB A1C (10/24/2011 9:31 AM CDT) P athologist Signature Hgb A1c 8.1 (H) 4.3 - 6.1 % [facility] Comment: The usual A1C goal for people with diabe jaci, age 18-75, is < 7.0%. Physicians may recommend a higher or lo wer goal for specific individuals. Specimen Anatomical Collection Method Collection Time Receive d Time (Source) Location / / Volume Laterality 10/24/2011 9:31 AM 2 9:41 CDT AM CDT Alisha Kimball MD LAB_1 Performing Organization Address City/State/ZIP Code Phon e Number [facility] [phone] [address] documented in this encounter Visit Diagnoses Diagnosis Diabetes mellitus type II ([facility]) Type II or unspecified type diabetes dinora litus without mention of complication, not stated as uncontrolled documented in this encounter Care Teams Vice President Sales Relationship Specialty Start Date End Date Alisha Kimball MD PCP - General 07/08/05 [address] [place] [address] documented as of this encounter
--- OUTSIDE RECORDS SUMMARY | 2022-05-29 13:37 | XMS_ITS | Encounter Summary ---
:1955 Author Organization [employer] Address [address] [place] [address] Care Team Providers Name Role Phone Alisha Kimball MD Primary Care Provider Reason for Visit Reason Comments DIABETES EDUCATION Encounter Details Date Type Department Care Team Description 06/05/2010 Office Visit [facility] Janiya Naqvi Diabet es mellitus type Program Meghann RN, CDE II ([facility]) (Primary Dx) [address] [place] [address] Social History Tobacco Use Types Packs/Day Years Used Date Smoking Tobacco: Never Alcohol Use Standard Drinks/Week Comments Not Asked 0 (1 standard drink = 0.6 oz pure alcoho l) Sex Assigned at Date Recorded Not on file documented as of this encounter Patient Instructions Patient InstructionsJaniya Naqvi RN, CDE - 06/05/2010 5:22 PM POULTRY DRESSER 1. Test blood sugar 1-2 times daily--before meals or 2 hours after a meal 2. Attend diabetes classes in 2-3 months 3. See Camille diabetes nurse on Wednesday at 430PM 4. Schedule appointment to see dietitian TRY DRESSER documented in this encounter Progress Notes Janiya Naqvi RN, CDE - 06/05/2010 5:15 PM CST SUBJECTIVE Loc Velasco is referred by [facility] for Diabetes Education. Accompanied by: unaccompanied, prefers [...] days per wk and plans to join [employer] Diet/Eating Habits: eats 3 meals /day, has [...] meal Appointments to be scheduled (Appointment center [phone]): 1. Attend diabetes classes in 2-3 months 2. See Camille diabetes nurse on Wednesday at 430PM Time spent with the patient: 60 minutes for diabetes education and counseling. Janiya Nqavi RN, CDE 06/05/2010, 4:35 PM TRY DRESSER documented in this encounter Plan of Treatment Upcoming Encounters Date Type Specialty Care Team Description 06/09/2022 Appointment General Dentistry Elaine Garcia, [facility] [address] [place] [address] (Wo rk) documented as of this encounter Visit Diagnoses Diagnosis Diabetes mellitus type II ([facility]) - Primar y Type II or unspecified type diabetes dinora litus without mention of complication, not stated as uncontrolled documented in this encounter Care Teams Bale Stacker Relationship Specialty Start Date End Date Alisha Kimball MD PCP - General 07/08/05 [address] [place] [address] documented as of this encounter
--- OUTSIDE RECORDS SUMMARY | 2022-05-29 13:37 | XMS_ITS | Encounter Summary ---
:1955 Author Organization [employer] Address [address] [place] [address] Care Team Providers Name Role Phone Alisha Kimball MD Primary Care Provider Encounter Details Date Type Department Care Team Description 04/28/2010 Imaging [facility] Foot pain [address] [place] [address] Social History Tobacco Use Types [...] General Dentistry Elaine Garcia, [facility] [address] [place] [address] (Wo rk) documented as of [...] limb documented in this encounter Care Teams Sales Representative Raw Fibers Relationship Specialty Start Date End Date Alisha Kimball MD PCP - General 07/08/05 [address] [place] [address] documented as of this encounter
--- OUTSIDE RECORDS SUMMARY | 2022-05-29 13:38 | XMS_ITS | Encounter Summary ---
:1955 Author Organization [employer] Address [address] [place] [address] Care Team Providers Name Role Phone Alisha Kimball MD Primary Care Provider Encounter Details Date Type Department Care Team Description 11/17/2007 Office Visit Specialty Center Kiah August H, OTR/L Mallet Finger (Primary [address] Dx) [address] [place] [phone] Social History Tobacco Use Types Packs/Day Years Used Date Smoking Tobacco: Never Alcohol Use Standard Drinks/Week Comments Not Asked 0 (1 standard drink = 0.6 oz pure alcoho l) Sex Assigned at Date Recorded Not on file documented as of this encounter Progress Notes Kiah August H - 11/17/2007 3:59 PM CDT HAND OCCUPATIONAL THERAPY DAILY NOTE 11/17/2007 Patient Name: Loc Velasco [id number] Payor: SELF [id number] Plan: SELF INSURED Product Type: *No Product [...] whirlpool Treatment: Therapeutic Exercises: Quantity: 1 Kiah Ebal,OTR/L documented in this encounter Plan of Treatment Upcoming Encounters Date Type Specialty Care Team Description 06/09/2022 Appointment General Dentistry Elaine Garcia, [facility] [address] [place], [place] [phone] (Wo rk) documented as of this encounter Visit Diagnoses Diagnosis Mallet finger - Primary documented in this encounter Care Teams Director Of Product Management Relationship Specialty Start Date End Date Alisha Kimball MD PCP - General 07/08/05 [address] [place] [address] documented as of this encounter
--- OUTSIDE RECORDS SUMMARY | 2022-05-29 13:38 | XMS_ITS | Encounter Summary ---
:1955 Author Organization [employer] Address [address] [address] Care Team Providers Name Role Phone Alisha Kimball MD Primary Care Provider Encounter Details Date Type Department Care Team Description 01/30/2008 Office Visit Specialty Center Kiah August H, OTR/L Mallet Finger (Primary [address] Dx) [address] [place] [phone] Social History Tobacco Use Types Packs/Day Years Used Date Smoking Tobacco: Never Alcohol Use Standard Drinks/Week Comments Not Asked 0 (1 standard drink = 0.6 oz pure alcoho l) Sex Assigned at Date Recorded Not on file documented as of this encounter Progress Notes Kiah August H - 01/30/2008 3:33 PM CDT HAND OCCUPATIONAL THERAPY DAILY/DISCHARGE NOTE 01/30/2008 Patient Name: Loc Velasco [id number] Payor: SELF [id number] Plan: SELF INSURED Product Type: *No Product [...] 9-44 ring PIP 0-94 DIP 0-51 Left chopped strand operator strength 24,35,26 Left 3pt. Pinch 10,12,11 TREATMENT [...] whirlpool Treatment: Therapeutic Exercises: Quantity: 1 Kiah BealOTR/L documented in this encounter Plan of Treatment Upcoming Encounters Date Type Specialty Care Team Description 06/09/2022 Appointment General Dentistry Elaine Garcia, [facility] [address] [place], [place] [phone] (Wo rk) documented as of this encounter Visit Diagnoses Diagnosis Mallet finger - Primary documented in this encounter Care Teams Cloth Brushing And Sueding Supervisor Relationship Specialty Start Date End Date Alisha Kimball MD PCP - General 07/08/05 [address] [place] [address] documented as of this encounter
--- OUTSIDE RECORDS SUMMARY | 2022-05-29 13:38 | XMS_ITS | Encounter Summary ---
:1955 Author Organization [facility] Address [address] [place] [address] Care Team Providers Name Role Phone Alisha Kimball MD Primary Care Provider Encounter Details Date Type Department Care Team Description 11/10/2007 Office Visit Specialty Center Kiah August H, OTR/L Mallet Finger (Primary [address] Dx) [address] [place] [phone] Social History Tobacco Use Types Packs/Day Years Used Date Smoking Tobacco: Never Alcohol Use Standard Drinks/Week Comments Not Asked 0 (1 standard drink = 0.6 oz pure alcoho l) Sex Assigned at Date Recorded Not on file documented as of this encounter Progress Notes Kiah August H - 11/10/2007 3:36 PM CDT HAND OCCUPATIONAL THERAPY DAILY NOTE 11/10/2007 Patient Name: Loc Velasco [id number] Payor: SELF [id number] Plan: SELF INSURED Product Type: *No Product [...] Appointment General Dentistry Elaine Garcia, [facility] [address] [place] [address] (Wo rk) documented as of this encounter Visit Diagnoses Diagnosis Mallet finger - Primary documented in this encounter Care Teams Stereo Equipment Installer Relationship Specialty Start Date End Date Alisha Kimball MD PCP - General 07/08/05 [address] [place] [address] documented as of this encounter
--- OUTSIDE RECORDS SUMMARY | 2022-05-29 13:38 | XMS_ITS | Encounter Summary ---
:1955 Author Organization [employer] Address [address] [address] Care Team Providers Name Role Phone Alisha Kimball MD Primary Care Provider Encounter Details Date Type Department Care Team Description 12/19/2007 Office Visit Specialty Center Kiah August H, OTR/L Mallet Finger (Primary [address] Dx) [address] [place] [phone] Social History Tobacco Use Types Packs/Day Years Used Date Smoking Tobacco: Never Alcohol Use Standard Drinks/Week Comments Not Asked 0 (1 standard drink = 0.6 oz pure alcoho l) Sex Assigned at Date Recorded Not on file documented as of this encounter Progress Notes Kiah August H - 12/19/2007 3:53 PM CDT HAND OCCUPATIONAL THERAPY DAILY NOTE 12/19/2007 Patient Name: Loc Velasco [id number] Payor: SELF [id number] Plan: SELF INSURED Product Type: *No Product [...] Active ROM, Passive ROM, Strengthening and Check elderly companion/3pt. Pinch strength. Will continue to see pt. 1x/week for next 6 weeks. MINUTES SEEN: 30 Treatment Charges: Physical Agent Modalities: Ultrasound: Quantity: 1 Treatment: Therapeutic Exercises: Quantity: 1 Kiah Beal OTR/Salome documented in this encounter Plan of Treatment Upcoming Encounters Date Type Specialty Care Team Description 06/09/2022 Appointment General Dentistry Elaine Garcia, [facility] [address] [place] [address] (Wo rk) documented as of this encounter Visit Diagnoses Diagnosis Mallet finger - Primary documented in this encounter Care Teams Marketing Strategy Manager Relationship Specialty Start Date End Date Alisha Kimball MD PCP - General 07/08/05 [address] [place] [address] documented as of this encounter
--- OUTSIDE RECORDS SUMMARY | 2022-05-29 13:38 | XMS_ITS | Encounter Summary ---
:1955 Author Organization [facility] Address [address] [address] Care Team Providers Name Role Phone Alisha Kimball MD Primary Care Provider Encounter Details Date Type Department Care Team Description 08/22/2007 Office Visit Specialty Center Janiya Knowles let Finger (Primary [address] A, OTR/L Dx) [address] [place] [address] [place], [place] [phone] Social History Tobacco Use Types Packs/Day Years Used Date Smoking Tobacco: Never Alcohol Use Standard Drinks/Week Comments Not Asked 0 (1 standard drink = 0.6 oz pure alcoho l) Sex Assigned at Date Recorded Not on file documented as of this encounter Progress Notes Janiya Knowles A - 08/22/2007 10:02 AM CST HAND OCCUPATIONAL THERAPY DAILY NOTE 08/22/2007 Patient Name: Loc Velasco [id number] Payor: SELF [id number] Plan: SELF INSURED Product Type: *No Product [...] 1 Therapeutic Procedure: Quantity: 1 Janiya Knowles,OTR/L,CHT GRINDER SET UP OPERATOR GEAR documented in this encounter Plan of Treatment Upcoming Encounters Date Type Specialty Care Team Description 06/09/2022 Appointment General Dentistry Elaine Garcia, [facility] [address] [place], [place] [phone] (Wo rk) documented as of this encounter Visit Diagnoses Diagnosis Mallet finger - Primary documented in this encounter Care Teams Sanforizer Relationship Specialty Start Date End Date Alisha Kimball MD PCP - General 07/08/05 [address] [place] [address] documented as of this encounter
--- OUTSIDE RECORDS SUMMARY | 2022-05-29 13:38 | XMS_ITS | Encounter Summary ---
:1955 Author Organization [facility] Address [address], [place] [address] Care Team Providers Name Role Phone Alisha Kimball MD Primary Care Provider Encounter Details Date Type Department Care Team Description 08/17/2007 Office Visit Specialty Center Arlene Hensley Ma llet Finger (Primary [address] OTR/L Dx) 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 Loc is to wear this splint: motion and time study teacher Proper fit assessed by therapist. Patient trained [...] to allow future independence with self cares. CUSTODIAL GOALS: to be completed in 12 weeks. [...] hand therapy evaluation can be directed to [phone]. MINUTES SEEN: 50 NEXT TREATMENT: Remold splints into increased extension. Review Home Exercise Program. Determine range of motion gains. Assess frequency needs. Nicolasa Hensley, OTR, CHT, MLD Treatment Charges: Evaluations: O.T. Evaluation Qty: 1 Treatment: Selfcare Activities: Quantity: 1 Orthotic/Prosthetic (mgmt/training/assess/fit) Quantity: 1 Custom Splints: Finger splint - Quantity: 1 MOTIVE ALIGNMENT SPECIALIST documented in this encounter Plan of Treatment Upcoming Encounters Date Type Specialty Care Team Description 06/09/2022 Appointment General Dentistry Elaine Garcia, [facility] [address] [place], [place] [phone] (Wo rk) documented as of this encounter Visit Diagnoses Diagnosis Mallet finger - Primary documented in this encounter Care Teams Trash Truck Driver Relationship Specialty Start Date End Date Alisha Kimball MD PCP - General 07/08/05 [address] [place] [address] documented as of this encounter
--- OUTSIDE RECORDS SUMMARY | 2022-05-29 13:38 | XMS_ITS | Encounter Summary ---
:1955 Author Organization [employer] Address [address], [place] [address] Care Team Providers Name Role Phone Alisha Kimball MD Primary Care Provider Reason for Visit Reason Comments COUGH for several days Encounter Details Date Type Department Care Team Description 07/08/2005 Office Visit [facility] Alisha Kimball, COUGH (P rimary Dx); Practice MD SCREEN FOR LIPID DISORDERS [address] [place] [address] [place] [address] [phone] Social History Tobacco Use Types Packs/Day Years Used Date Smoking Tobacco: Never Alcohol Use Standard Drinks/Week Comments Not Asked 0 (1 standard drink = 0.6 oz pure alcoho l) Sex Assigned at Date Recorded Not on file documented as of this encounter Last Filed Vital Signs Vital Sign Reading Time Taken Comments Blood Pressure - - Pulse 78 07/08/2005 3:51 PM SCARFER Temperature 37 ??C (98.6 ??F) 07/08/2005 3:51 PM SCARFER Respiratory Rate 18 07/08/2005 3:51 PM SCARFER Oxygen Saturation 97% 07/08/2005 3:51 PM SCARFER Inhaled Oxygen Concentration - - Weight 83.9 kg (185 lb) 07/08/2005 3:51 PM SCARFER Height - - Body Mass Index - [...] breathing, or any other concerns. P cc: FER documented in this encounter Plan of Treatment Upcoming Encounters Date Type Specialty Care Team Description 06/09/2022 Appointment General Dentistry Elaine Garcia, [facility] [address] [place], [place] [phone] (Wo rk) documented as of this encounter Procedures Procedure Name Priority Date/Time Associated Comments Diagnosis BORDETELLA PERTUSSIS Routine 07/08/2005 4:28 PM Cough R esults for this / PARAPERTUSSIS, SCARFER procedure a re in MOLECULAR DETECTION the resu lts section. documented in this encounter Results (ABNORMAL) B PERTUSSIS/PARA,PCR (07/08/2005 4:28 PM SCARFER) Component Value Ref Test Analysis Performed At [facility] Method Time Signature B Positive - [facility] pertussis/pa BORDETELLA ra PCR PARAPERTUSSIS DNA DETECTED (A) Comment: Negative - No Bordetella pertus sis DNA Detected Comment Referred to [employer] [facility] Specimen Anatomical Collection Method Collection Time Receive d Time (Source) Location / / Volume Laterality 07/08/2005 4:28 PM 6 4:29 SCARFER PM SCARFER Alisha Kimball MD LAB_1 Performing Organization Address City/State/ZIP Code Phon e Number [facility] [phone] [address] documented in this encounter Visit Diagnoses Diagnosis Cough - Primary Screening for lipoid disorders documented in this encounter Care Teams Camera Control Operator Relationship Specialty Start Date End Date Alisha Kimball MD PCP - General 07/08/05 [address] [place] [address] documented as of this encounter
--- OUTSIDE RECORDS SUMMARY | 2022-05-29 13:38 | XMS_ITS | Encounter Summary ---
:1955 Author Organization [employer] Address [address] [place] [address] Care Team Providers Name Role Phone Alisha Kimball MD Primary Care Provider Reason for Visit Reason Onset Date Comments QUESTIONS, GENERAL 10/03/2007 Encounter Details Date Type Department Care Team Description 10/03/2007 Telephone Specialty Center [address], QUESTIONS, GENERAL [facility] [address] [place] [address] [place] [address] [phone] (Wo rk) Social History Tobacco Use Types [...] General Dentistry Elaine Garcia, [facility] [address] [place], [place] [phone] (Wo rk) documented as of this encounter Visit Diagnoses Not on filedocumented in this encounter Care Teams It Solutions Architect Relationship Specialty Start Date End Date Alisha Kimball MD PCP - General 07/08/05 [address] [place] [address] documented as of this encounter
--- OUTSIDE RECORDS SUMMARY | 2022-05-29 13:38 | XMS_ITS | Encounter Summary ---
:1955 Author Organization [employer] Address [address], [place] [address] Care Team Providers Name Role Phone Alisha Kimball MD Primary Care Provider Reason for Referral Specialty Diagnoses / Procedures Referred By Contact Refer red To Contact Mauro Keyes MD [address] [place] [address] Referral ID Status Reason Start Date Expiration Date Visits Requ ested Visits Authorized CT MARKETING INTERN Reason for Visit Reason Comments Follow-up, NOS finger Encounter Details Date Type Department Care Team Description 08/02/2007 Office Visit [facility] Mauro Keyes (Primary Medicine Carmen Amos MD Dx) [address] [facility]. [address] [place] [address] [place] [address] Social History Tobacco Use Types Packs/Day Years Used Date Smoking Tobacco: Never Alcohol Use Standard Drinks/Week Comments Not Asked 0 (1 standard drink = 0.6 oz pure alcoho l) Sex Assigned at Date Recorded Not on file documented as of this encounter Last Filed Vital Signs Vital Sign Reading Time Taken Comments Blood Pressure 116/62 08/02/2007 2:26 PM DIRECT MARKETING INTERN Pulse 76 08/02/2007 2:26 PM DIRECT MARKETING INTERN Temperature - - Respiratory Rate 16 08/02/2007 2:26 PM DIRECT MARKETING INTERN Oxygen Saturation - - Inhaled Oxygen Concentration - - Weight 73.9 kg (163 lb) 08/02/2007 2:26 PM DIRECT MARKETING INTERN Height 165.1 cm (5' 5) 08/02/2007 2:26 PM DIRECT MARKETING INTERN Body Mass Index 27.12 08/02/2007 2:26 PM DIRECT MARKETING INTERN documented in this encounter Progress Notes Mauro Keyes V - 08/02/2007 3:28 PM CST This office note has been dictated. CT MARKETING INTERN Mauro Keyes V - 08/02/2007 12:00 AM DIRECT MARKETING INTERN Ms. Velasco is a 52-year-old lady who [...] hand surgeon for further evaluation. P cc: CT MARKETING INTERN documented in this encounter Plan of Treatment Upcoming Encounters Date Type Specialty Care Team Description 06/09/2022 Appointment General Dentistry Elaine Garcia, [facility] [address] [place] [address] (Wo rk) documented as of this encounter Visit Diagnoses Diagnosis Finger pain - Primary Pain in limb documented in this encounter Care Teams Fish Processing Supervisor Relationship Specialty Start Date End Date Alisha Kimball MD PCP - General 07/08/05 [address] [place] [address] documented as of this encounter
--- OUTSIDE RECORDS SUMMARY | 2022-05-29 13:38 | XMS_ITS | Encounter Summary ---
:1955 Author Organization [facility] Address [address] [address] Care Team Providers Name Role Phone Alisha Kimball MD Primary Care Provider Encounter Details Date Type Department Care Team Description 08/31/2007 Office Visit [facility] Center Arlene Hensley Ma llet Finger (Primary [address] OTR/L Dx) 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 ICD-9-code: 736.1 Date of Onset: 06/02/07 Date of Surgery: not applicable Referring Physician: Jigar Mcgarry V Order Date(s): 08/09/07 Date of initial evaluation/progress note(s): 08/17/2007 Injury: Left Hand Dominance: Right CURRENT HOME PROGRAM : real time operator use of mallet splint VISIT NUMBER: 3 out of 3 PAIN: Intensity Level: Current Not rated/10 SUBJECTIVE Patient reports real time operator use of splint. Changes splint every two [...] Functional limitations TREATMENT PLAN Pt will continue real time operator splinting through . Will reschedule her Dr [...] Check out / Adjustment: Quantity: 2 Nicolasa Hensley, OTR, CHT, MLD N I FARMWORKER documented in this encounter Plan of Treatment Upcoming Encounters Date Type Specialty Care Team Description 06/09/2022 Appointment General Dentistry Elaine Garcia, [address] [place] [address] (Wo rk) documented as of this encounter Visit Diagnoses Diagnosis Mallet finger - Primary documented in this encounter Care Teams Bacteriology Teacher Relationship Specialty Start Date End Date Alisha Kimball MD PCP - General 07/08/05 [address] [place] [address] documented as of this encounter
--- OUTSIDE RECORDS SUMMARY | 2022-05-29 13:38 | XMS_ITS | Encounter Summary ---
:1955 Author Organization [facility] Address [address] [place] [address] Care Team Providers Name Role Phone Alisha Kimball MD Primary Care Provider Reason for Visit Reason Onset Date Comments COUGH 07/08/2005 cough Encounter Details Date Type Department Care Team Description 07/08/2005 Telephone [facility] Miky Salinas MD COUGH (cough) [address] [place] [address] [place] [address] [phone] (Wo rk) Social History Tobacco Use Types Packs/Day Years Used Date Smoking Tobacco: Never Alcohol Use Standard Drinks/Week Comments Not Asked 0 (1 standard drink = 0.6 oz pure alcoho l) Sex Assigned at Date Recorded Not on file documented as of this encounter Nursing Notes 07/08/2005 11:59 PM HARNESS MENDER >> JORGE PONCE Wed Jul 08, 2005 [...] 06/09/2022 Appointment General Dentistry Elaine Garcia, [facility] [address] [place] [address] (Wo rk) documented as of this encounter Visit Diagnoses Not on filedocumented in this encounter Care Teams Mechanical Process Engineer Relationship Specialty Start Date End Date Alisha Kimball MD PCP - General 07/08/05 [address] [place] [address] documented as of this encounter
--- OUTSIDE RECORDS SUMMARY | 2022-05-29 13:38 | XMS_ITS | Encounter Summary ---
:1955 Author Organization [employer] Address [address], [place] [address] Care Team Providers Name Role Phone Alisha Kimball MD Primary Care Provider Encounter Details Date Type Department Care Team Description 12/13/2007 Office Visit Specialty Center Kiah August H, OTR/L Mallet Finger (Primary [address] Dx) [address] [place] [phone] Social History Tobacco Use Types Packs/Day Years Used Date Smoking Tobacco: Never Alcohol Use Standard Drinks/Week Comments Not Asked 0 (1 standard drink = 0.6 oz pure alcoho l) Sex Assigned at Date Recorded Not on file documented as of this encounter Progress Notes Kiah August H - 12/13/2007 9:27 AM CDT HAND OCCUPATIONAL THERAPY DAILY/PROGRESS NOTE 12/13/2007 Patient Name: Loc Velasco [id number] Payor: SELF [id number] Plan: SELF INSURED Product Type: *No Product [...] Active ROM, Passive ROM, Strengthening and Check cooperer/3pt. Pinch strength. Will continue to see pt. 1x/week for next 6 weeks. MINUTES SEEN: 30 Treatment Charges: Physical Agent Modalities: Fluidotherapy / whirlpool Treatment: Therapeutic Exercises: Quantity: 1 Kiah Beal OTR/L documented in this encounter Plan of Treatment Upcoming Encounters Date Type Specialty Care Team Description 06/09/2022 Appointment General Dentistry Elaine Garcia, [facility] [address] [place] [address] (Wo rk) documented as of this encounter Visit Diagnoses Diagnosis Mallet finger - Primary documented in this encounter Care Teams Incoming Freight Clerk Relationship Specialty Start Date End Date Alisha Kimball MD PCP - General 07/08/05 [address] [place], [place] [phone] documented as of this encounter
--- OUTSIDE RECORDS SUMMARY | 2022-05-29 13:38 | XMS_ITS | Encounter Summary ---
:1955 Author Organization [employer] Address [address], [place] [address] Care Team Providers Name Role Phone Alisha Kimball MD Primary Care Provider Encounter Details Date Type Department Care Team Description 01/02/2008 Office Visit Specialty Center Kiah August H, OTR/L Mallet Finger (Primary [address] Dx) [address] [place] [phone] Social History Tobacco Use Types Packs/Day Years Used Date Smoking Tobacco: Never Alcohol Use Standard Drinks/Week Comments Not Asked 0 (1 standard drink = 0.6 oz pure alcoho l) Sex Assigned at Date Recorded Not on file documented as of this encounter Progress Notes Kiah August H - 01/02/2008 4:37 PM CDT HAND OCCUPATIONAL THERAPY DAILY NOTE 01/02/2008 Patient Name: Loc Velasco [id number] Payor: SELF [id number] Plan: SELF INSURED Product Type: *No Product [...] continues to push on her fingers. OBJECTIVE Guidance Consultant strength: right 39,44,43 left 24,22,25 3pt. Pinch: [...] Dentistry Elaine Garcia, [facility] [address] [place] [address] (Wo rk) documented as of this encounter Visit Diagnoses Diagnosis Mallet finger - Primary documented in this encounter Care Teams Collector Of Port Relationship Specialty Start Date End Date Alisha Kimball MD PCP - General 07/08/05 [address] [place] [address] documented as of this encounter
--- OUTSIDE RECORDS SUMMARY | 2022-05-29 13:38 | XMS_ITS | Encounter Summary ---
:1955 Author Organization [employer] Address [address] [place] [address] Care Team Providers Name Role Phone Alisha Kimball MD Primary Care Provider Reason for Visit Reason Comments INJURY, FINGERS 3rd finger lt hand caught in car door last night Encounter Details Date Type Department Care Team Description 06/02/2007 Office Visit [facility] Gino Chavez, Rupt ure of Extensor Tendons of Hand and Wrist (Primary Dx); Practice MD Finger Injury [address] [place] [address] [address] [phone] [place] [address] (Wo rk) Social History Tobacco Use Types Packs/Day Years Used Date Smoking Tobacco: Never Alcohol Use Standard Drinks/Week Comments Not Asked 0 (1 standard drink = 0.6 oz pure alcoho l) Sex Assigned at Date Recorded Not on file documented as of this encounter Last Filed Vital Signs Vital Sign Reading Time Taken Comments Blood Pressure 122/84 06/02/2007 9:[address] ASSOCIATE JUSTICE Pulse 72 06/02/2007 9:[address] ASSOCIATE JUSTICE Temperature - - Respiratory Rate - - Oxygen Saturation - - Inhaled Oxygen Concentration - - Weight 75.8 kg (167 lb 3.2 oz) 06/02/2007 9:[address] ASSOCIATE JUSTICE Height - - Body Mass Index 27.82 [...] all during this time. Gino Chavez MD ALS COURT ASSOCIATE JUSTICE documented in this encounter Procedure Notes Milagro Valera - 06/02/2007 12:00 AM CSTAssociated Order(s): FINGER(S) INITIAL& FOLLOW UP CLINICAL DATA: LEFT MIDDLE FINGER JAMMED BY A CAR DOOR YESTERDAY, UNABLE TO EXTEND DIP EXAMINATION: LEFT THIRD FINGER 06/02/2007: FINDINGS: Normal examination. Milagro Valera MD A cc: Gino Chavez MD Radiology [place] ALS [facility] ASSOCIATE JUSTICE documented in this encounter Plan of Treatment Upcoming Encounters Date Type Specialty Care Team Description 06/09/2022 Appointment General Dentistry Elaine Garcia, [facility] [address] [place] [address] (Wo rk) documented as of this encounter Procedures Procedure Name Priority Date/Time Associated Diagnosis Comme nts RADEX FNGR MINIMUM Routine 06/02/2007 12:00 AM Finger Injury R esults for this [address] ASSOCIATE JUSTICE procedure are i n the results section. documented in this encounter Results Finger (06/02/2007 12:[address] ASSOCIATE JUSTICE) Anatomical Region Laterality Modality Other Transcriptions Milagro [...] finger documented in this encounter Care Teams Centrifuge Separator Operator Relationship Specialty Start Date End Date Alisha Kimball MD PCP - General 07/08/05 [address] [place] [address] documented as of this encounter
--- OUTSIDE RECORDS SUMMARY | 2022-05-29 13:38 | XMS_ITS | Encounter Summary ---
:1955 Author Organization [facility] Address [address] [place] [address] Care Team Providers Name Role Phone Alisha Kimball MD Primary Care Provider Reason for Visit Reason Onset Date Comments Dental Concerns 09/11/2006 Encounter Details Date Type Department Care Team Description 09/11/2006 Telephone [facility] Faye Patel RN Dental Concerns [address] [place], [place] [address] Social History Tobacco Use Types [...] dentist at 8am 8:12 AM Vero from [facility] calling to take information and will call back patient. Faye Patel RN CTOR OF PRODUCT DESIGN documented in this encounter Plan of Treatment Upcoming Encounters Date Type Specialty Care Team Description 06/09/2022 Appointment General Dentistry Elaine Garcia, [facility] [address] [place] [address] (Wo rk) documented as of this encounter Visit Diagnoses Not on filedocumented in this encounter Care Teams Quality Control Representative Relationship Specialty Start Date End Date Alisha Kimball MD PCP - General 07/08/05 [address] [place] [address] documented as of this encounter
--- OUTSIDE RECORDS SUMMARY | 2022-05-29 13:38 | XMS_ITS | Encounter Summary ---
:1955 Author Organization [facility] Address [address] [place] [address] Care Team Providers Name Role Phone Alisha Kimball MD Primary Care Provider Encounter Details Date Type Department Care Team Description 01/01/2006 Notes/Orders [facility] Linda Roberts, Gastroenterology ADMISSION SPECIALIST[address] [phone] Social History Tobacco Use Types Packs/Day Years Used Date Smoking Tobacco: Never Alcohol Use Standard Drinks/Week Comments Not Asked 0 (1 standard drink = 0.6 oz pure alcoho l) Sex Assigned at Date Recorded Not on file documented as of this encounter Plan of Treatment Upcoming Encounters Date Type Specialty Care Team Description 06/09/2022 Appointment General Dentistry Elaine Garcia, [facility] [address] [place], [place] [phone] (Wo rk) documented as of this encounter Visit Diagnoses Not on filedocumented in this encounter Care Teams Gang Drill Operator Relationship Specialty Start Date End Date Alisha Kimball MD PCP - General 07/08/[address] [place], [place] [phone] documented as of this encounter
--- OUTSIDE RECORDS SUMMARY | 2022-05-29 13:38 | XMS_ITS | Encounter Summary ---
:1955 Author Organization [employer] Address [address] [place] [address] Care Team Providers Name Role Phone Alisha Kimball MD Primary Care Provider Reason for Referral Specialty Diagnoses / Procedures Referred By Contact Refer red To Contact Wendi Berry, REGINALD Clark [address] [place] [address] Referral ID Status Reason Start Date Expiration Date Visits Requ ested Visits Authorized Reason for Visit Reason Comments Follow Up mallet injury Encounter Details Date Type Department Care Team Description 11/01/2007 Office Visit Specialty Center Jigar Mcgarry Mall et Finger (Primary [address] Plastic & Hand V, Dx) Surgery [address] [place] [phone] Social History Tobacco Use Types Packs/Day Years [...] Garcia, [facility] [address] [place] [address] (Wo rk) documented as of this encounter Visit Diagnoses Diagnosis Mallet finger - Primary documented in this encounter Care Teams Stock Preparation Supervisor Relationship Specialty Start Date End Date Alisha Kimball MD PCP - General 07/08/05 [address] [place], [place] [phone] documented as of this encounter
--- OUTSIDE RECORDS SUMMARY | 2022-05-29 13:38 | XMS_ITS | Encounter Summary ---
:1955 Author Organization [facility] Address [address] [place] [address] Care Team Providers Name Role Phone Alisha [...] Appointment General Dentistry Elaine Garcia, [facility] [address] [place], [place] [phone] (Wo rk) documented as of this encounter Visit Diagnoses Not on filedocumented in this encounter Care Teams Zigzag Stitcher Relationship Specialty Start Date End Date Alisha Kimball MD PCP - General 07/08/[address] [place], [place] [phone] documented as of this encounter
--- OUTSIDE RECORDS SUMMARY | 2022-05-29 13:38 | XMS_ITS | Encounter Summary ---
:1955 Author Organization [employer] Address [address], [place] [address] Care Team Providers Name Role Phone Alisha Kimball MD Primary Care Provider Reason for Visit Reason Comments INJURY, HAND hit today on door Right Encounter Details Date Type Department Care Team Description 01/12/2007 Office Visit [facility] Francisco Gupta Wrist Injury (Primary Medicine R, Dx) [address] [facility]. [address] [place] [address] [place] [address] [phone] Social History Tobacco Use Types Packs/Day Years [...] Description 06/09/2022 Appointment [facility]istry [facility] [address] [place] [address] (Wo rk) documented as of [...] wrist documented in this encounter Care Teams Public Bath Attendant Relationship Specialty Start Date End Date Alisha Kimball MD PCP - General 07/08/05 [address] [place] [address] documented as of this encounter
--- OUTSIDE RECORDS SUMMARY | 2022-05-29 13:38 | XMS_ITS | Encounter Summary ---
:1955 Author Organization [employer] Address [address], [place] [address] Care Team Providers Name Role Phone Alisha Kimball MD Primary Care Provider Encounter Details Date Type Department Care Team Description 11/01/2007 Office Visit Specialty Center Kiah August H, OTR/L Mallet Finger (Primary [address] Dx) [address] 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
--- OUTSIDE RECORDS SUMMARY | 2022-05-29 13:38 | XMS_ITS | Encounter Summary ---
:1955 Author Organization [facility] Address [address] [place] [address] Care Team Providers Name Role Phone Alisha Kimball MD Primary Care Provider Encounter Details Date Type Department Care Team Description 01/26/2006 Correspondence [facility] Colonoscopy Gastroenterology MD Malik Informed Consent [address] [address] RADIO JUAQUIN [address] [address] [place], [place] [phone] Social History Tobacco Use Types Packs/Day Years [...] [facility] [address] [place], [place] [phone] (Wo rk) documented as of this encounter Visit Diagnoses Not on filedocumented in this encounter Care Teams Golf Course Designer Relationship Specialty Start Date End Date Alisha Kimball MD PCP - General 07/08/[address] [place], [place] [phone] documented as of this encounter
--- OUTSIDE RECORDS SUMMARY | 2022-05-29 13:38 | XMS_ITS | Encounter Summary ---
:1955 Author Organization [employer] Address [address] [place] [address] Care Team Providers Name Role Phone Alisha Kimball MD Primary Care Provider Reason for Visit Reason Comments CONSULT prolasp bladder Encounter Details Date Type Department Care Team Description 10/06/2006 Office Visit [facility] Froy Rutherford Vagin al Prolapse and Gynecology (Primary Dx) [address] [place] [address] Social History Tobacco Use Types [...] General Dentistry Elaine Garcia, [facility] [address] [place] [address] (Wo rk) documented as of this encounter Visit Diagnoses Diagnosis Vaginal prolapse - Primary Unspecified prolapse of vaginal eng[place] documented in this encounter Care Teams Permit Specialist Relationship Specialty Start Date End Date Alisha Kimball MD PCP - General 07/08/05 [address] [place] [address] documented as of this encounter
--- OUTSIDE RECORDS SUMMARY | 2022-05-29 13:38 | XMS_ITS | Encounter Summary ---
:1955 Author Organization [employer] Address [address] [address] Care Team Providers Name Role Phone Alisha Kimball MD Primary Care Provider Reason for Referral Specialty Diagnoses / Procedures Referred By Contact Refer red To Contact Jigar Mcgarry MD [address] [place] [address] Referral ID Status Reason Start Date Expiration Date Visits Requ ested Visits Authorized H UNIT TREATER Reason for Visit Reason Comments NEW MEMBER VISIT eval crush injury to her lef t long finger referred by Dr. Alisha Kimblal DOI 06/02/07 Encounter Details Date Type Department Care Team Description 08/09/2007 [facility] Visit [facility] Jigar Mcgarry et Finger (Primary [address] Pl[address] & Hand VMD Dx) Surgery [address] [place] [address] Social History Tobacco Use Types Packs/Day Years Used Date Smoking Tobacco: Never Alcohol Use Standard Drinks/Week Comments Not Asked 0 (1 standard drink = 0.6 oz pure alcoho l) Sex Assigned at Date Recorded Not on file documented as of this encounter Last Filed Vital Signs Vital Sign Reading Time Taken Comments Blood Pressure 121/84 08/09/2007 4:16 PM BATCH UNIT TREATER Pulse 73 08/09/2007 4:16 PM BATCH UNIT TREATER Temperature 36.7 ??C (98.1 ??F) 08/09/2007 4:16 PM BATCH UNIT TREATER Respiratory Rate 16 08/09/2007 4:16 PM BATCH UNIT TREATER Oxygen Saturation - - Inhaled Oxygen Concentration - - Weight 73.5 kg (162 lb) 08/09/2007 4:16 PM BATCH UNIT TREATER Height 162.6 cm (5' 4) 08/09/2007 4:16 PM BATCH UNIT TREATER Body Mass Index 27.81 08/09/2007 4:16 PM BATCH UNIT TREATER documented in this encounter Patient Instructions Patient InstructionsSchJigar murcia V - 08/09/2007 4:45 PM CST Hand Therapy CATIA. Return to clinic in 8 weeks. Jigar Mcgarry MD Plastic and Hand Surgery H UNIT TREATER documented in this encounter Progress Notes Jigar Mcgarry V - 08/09/2007 12:00 AM BATCH UNIT TREATER Loc Velasco is a 52 -year-old patient [...] weeks. P cc: MD Alisha Matos MD H UNIT TREATER documented in this encounter Plan of Treatment Upcoming Encounters Date Type Specialty Care Team Description 06/09/2022 Appointment General Dentistry Elaine Garcia [facility] [address] [place] [address] (Wo rk) documented as of this encounter Visit Diagnoses Diagnosis Mallet finger - Primary documented in this encounter Care Teams Drawing In Machine Tender Helper Relationship Specialty Start Date End Date Alisha Kimball MD PCP - General 07/08/05 [address] [place] [address] documented as of this encounter
--- OUTSIDE RECORDS SUMMARY | 2022-05-29 13:38 | XMS_ITS | Encounter Summary ---
:1955 Author Organization [facility] Address [address] [place] [address] Care Team Providers Name Role Phone Alisha Kimball MD Primary Care Provider Encounter Details Date Type Department Care Team Description 01/08/2006 Correspondence None Hp Rois, Provider consent to release Social History Tobacco Use Types Packs/Day Years Used Date Smoking Tobacco: Never Alcohol Use Standard Drinks/Week Comments Not Asked 0 (1 standard drink = 0.6 oz pure alcoho l) Sex Assigned at Date Recorded Not on file documented as of this encounter Progress Notes Hp Rois, Provider - 01/08/2006 12:00 AM CDT documented in this encounter Plan of Treatment Upcoming Encounters Date Type Specialty Care Team Description 06/09/2022 Appointment General Dentistry Elaine Garcia, [facility] [address] [place], [place] [phone] (Wo rk) documented as of this encounter Visit Diagnoses Not on filedocumented in this encounter Care Teams Director Counseling Bureau Relationship Specialty Start Date End Date Alisha Kimball MD PCP - General 07/08/[address] [place], [place] [phone] documented as of this encounter
--- OUTSIDE RECORDS SUMMARY | 2022-05-29 13:38 | XMS_ITS | Encounter Summary ---
:1955 Author Organization [facility] Address [address] [place] [address] Care Team Providers Name Role Phone Alisha Kimball MD Primary Care Provider Reason for Referral Specialty Diagnoses / Procedures Referred By Contact Refer red To Contact Mauro Keyes MD [address] [place] [address] Referral ID Status Reason Start Date Expiration Date Visits Requ ested Visits Authorized Specialty Diagnoses / Procedures Referred By Contact Refer red To Contact Mauro Keyes MD [address] [place] [address] Referral ID Status Reason Start Date Expiration Date Visits Requ ested Visits Authorized Reason for Visit Reason Comments RASH also cut on leg in Jul. Encounter Details Date Type Department Care Team Description 11/17/2005 Office Visit [facility] Mauro Keyes F SKIN ERUPT NEC (Primary Dx); Timbo Amos MD SCREENING MAMM-MAILG NEOPL NEC; [address] 50 [place] [address] [place] [address] [phone] Social History Tobacco Use Types Packs/Day Years [...] been dictated. documented in this encounter Consult Notes Mauro Keyes V - 11/17/2005 12:00 AM CDTSUBJECTIVE: Ms. Velasco is a 50 -year-old lady who comes [...] Dentistry Elaine Garcia, [facility] [address] [place], [place] [phone] (Wo rk) documented as of this encounter Visit Diagnoses Diagnosis Rash and other nonspecific skin eruption - Primary Other screening mammogram Routine general medical examination at [facility] facility Routine general medical examination at a [facility] facility documented in this encounter Care Teams Equity Research Associate Relationship Specialty Start Date End Date Alisha Kimball MD PCP - General 07/08/05 [address] [place] [address] documented as of this encounter
--- OUTSIDE RECORDS SUMMARY | 2022-05-29 13:38 | XMS_ITS | Encounter Summary ---
:1955 Author Organization [facility] Address [address], [place] [address] Care Team Providers Name Role Phone Alisha Kimball MD Primary Care Provider Encounter Details Date Type Department Care Team Description 01/16/2008 Office Visit Special[facility] Kiah August H, OTR/L Mallet Finger (Primary [address] Dx) [address] [place] [phone] Social History Tobacco Use Types Packs/Day Years Used Date Smoking Tobacco: Never Alcohol Use Standard Drinks/Week Comments Not Asked 0 (1 standard drink = 0.6 oz pure alcoho l) Sex Assigned at Date Recorded Not on file documented as of this encounter Progress Notes Kiah August H - 01/16/2008 3:59 PM CDT HAND OCCUPATIONAL THERAPY DAILY NOTE 01/16/2008 Patient Name: Loc Velasco [id number] Payor: SELF [id number] Plan: SELF INSURED Product Type: *No Product [...] Instructed and issued pt. Theraputty for increased associate professor of theatre/pinch strength. ASSESSMENT Pain: decreased Edema: decreased Range [...] General Dentistry Elaine Garcia, [facility] [address] [place] [address] (Wo rk) documented as of this encounter Visit Diagnoses Diagnosis Mallet finger - Primary documented in this encounter Care Teams Home Care Manager Relationship Specialty Start Date End Date Alisha Kimball MD PCP - General 07/08/05 [address] [place] [address] documented as of this encounter
--- OUTSIDE RECORDS SUMMARY | 2022-05-29 13:38 | XMS_ITS | Encounter Summary ---
:1955 [facility] Address [address] [place] [address] Care Team Providers Name Role Phone Alisha Kimball MD Primary Care Provider Encounter Details Date Type Department Care Team Description 08/16/2007 [facility] Only [facility] I, Sp O ther Screening Mammography Mammogram (Primary [address]x) [place], [place] [phone] Social History Tobacco Use Types Packs/Day Years [...] Brittney Steen MD D: cc: Radiology SP IER SELF SERVICE GASOLINE documented in this encounter Plan of Treatment Upcoming Encounters Date Type Specialty Care Team Description 06/09/2022 Appointment General Dentistry Elaine Garcia, [facility] [address] [place] [address] (Wo rk) documented as of this encounter Procedures Procedure Name Priority Date/Time Associated Diagnosis Comme nts SCREENING MAMMO Routine 08/16/2007 12:00 AM Other Screening Re sults for this DIRECT DIGITAL IMG CASHIER SELF SERVICE GASOLINE Mammogram procedure are in BECCA the results section. documented in this encounter Results MAMMOGRAM, SCREENING (DIGITAL) (08/16/2007 12:00 AM CASHIER SELF SERVICE GASOLINE) Anatomical Region Laterality Modality Breast Other Transcriptions [...] Primary documented in this encounter Care Teams Computer Assembler Relationship Specialty Start Date End Date Alisha Kimball MD PCP - General 07/08/05 [address] [place] [address] documented as of this encounter
--- OUTSIDE RECORDS SUMMARY | 2022-05-29 13:38 | XMS_ITS | Encounter Summary ---
:1955 Author Organization [facility] Address [address] [address] Care Team Providers Name Role Phone Alisha Kimball MD Primary Care Provider Encounter Details Date Type Department Care Team Description 12/07/2007 Office Visit Specialty Center Kiah August H, OTR/L Mallet Finger (Primary [address] Dx) [address] [place] [phone] Social History Tobacco Use Types Packs/Day Years Used Date Smoking Tobacco: Never Alcohol Use Standard Drinks/Week Comments Not Asked 0 (1 standard drink = 0.6 oz pure alcoho l) Sex Assigned at Date Recorded Not on file documented as of this encounter Progress Notes Kiah August H - 12/07/2007 4:16 PM CDT HAND OCCUPATIONAL THERAPY DAILY NOTE 12/07/2007 Patient Name: Loc Velasco [id number] Payor: SELF [id number] Plan: SELF INSURED Product Type: *No Product [...] Appointment General Dentistry Elaine Garcia, [facility] [address] [place], [place] [phone] (Wo rk) documented as of this encounter Visit Diagnoses Diagnosis Mallet finger - Primary documented in this encounter Care Teams Second Worker Relationship Specialty Start Date End Date Alisha Kimball MD PCP - General 07/08/05 [address] [place] [address] documented as of this encounter
--- OUTSIDE RECORDS SUMMARY | 2022-05-29 13:38 | XMS_ITS | Encounter Summary ---
:1955 Author Organization [facility] Address [address] [place] [address] Care Team Providers Name Role Phone Carroll Avalos MD Primary Care Provider Reason for Visit Reason Comments MOLE she is fasting CONSTIPATION noticed a buldge in back Encounter Details Date Type Department Care Team Description 09/09/2006 Office Visit [facility] Carroll Avalos, Skin Les ion (Primary Dx); Practice [facility] for DTP; [address] Screening Cholesterol Level; [place] [address] [address] Screening for Diabetes Mellitus; [phone] [place], [place] Frequent Urinat ion; [address] Cystocele; [phone] Constipation; (Work) Hypercholesteremia Social History Tobacco Use Types Packs/Day Years Used Date Smoking Tobacco: Never Alcohol Use Standard Drinks/Week Comments Not Asked 0 (1 standard drink = 0.6 oz pure alcoho l) Sex Assigned at Date Recorded Not on file documented as of this encounter Last Filed Vital Signs Vital Sign Reading Time Taken Comments Blood Pressure 132/78 09/09/2006 2:20 PM CURVE CLEANER Pulse 82 09/09/2006 2:20 PM CURVE CLEANER Temperature 37.1 ??C (98.7 ??F) 09/09/2006 2:20 PM CURVE CLEANER Respiratory Rate 26 09/09/2006 2:20 PM CURVE CLEANER Oxygen Saturation - - Inhaled Oxygen Concentration - - Weight 88.1 kg (194 lb 3.2 oz) 09/09/2006 2:20 PM CURVE CLEANER Height - - Body Mass Index - - documented in this encounter Progress Notes Carroll Avalos - 09/11/2006 9:44 PM CURVE CLEANER Addended by: CARROLL AVALOS on: 09/11/2006 9:44:12 PM Modules accepted: Orders E CLEANER Carroll Avalos - 09/09/2006 3:23 PM CST This office note has been dictated. Carroll Avalos MD E CLEANER Carroll Avalos - 09/09/2006 12:00 AM CURVE CLEANER SUBJECTIVE: Loc is seen today with several [...] to help. She will sometimes use an cbdp-ast-helbpau stool softener. She's not sure if that [...] See orders. Results by mail. A cc: E CLEANER documented in this encounter Plan of Treatment Upcoming Encounters Date Type Specialty Care Team Description 06/09/2022 Appointment General Dentistry Elaine Garcia, [facility] [address] [place] [address] (Wo rk) documented as of this encounter Procedures Procedure Name Priority Date/Time Associated Diagnosis Comme nts BASIC METABOLIC Routine 09/09/2006 3:39 PM Frequent Urination Results for this PANEL CURVE CLEANER procedure are i n the results section. UA MICRO IF Routine 09/09/2006 3:39 PM Frequent Urination Res ults for this CURVE CLEANER procedure are i n the results section. LIPID PANEL, FAST > Routine 09/09/2006 3:39 PM Screening Re sults for this 12 HOUR CURVE CLEANER Cholesterol Level procedure are in the results section. URINE CULTURE Routine 09/09/2006 3:39 PM Frequent Urination Re sults for this CURVE CLEANER procedure are i n the results section. UA MICRO Routine 09/09/2006 3:39 PM Results f or this CURVE CLEANER procedure are i n the results section. documented in this encounter Results UA MICRO (09/09/2006 3:39 PM CURVE CLEANER) [facility] Finjan Method Time Signature RBC'S 0-3 0 - 3 [facility] /hpf WBC'S 3-5 0 - 5 [facility] /hpf Epith, Many /hpf [facility] Squamous Bact Occ [facility] Casts 0 /lpf [facility] Other Mod Mucous [facility] Specimen Anatomical Collection Method Collection Time Receive d Time (Source) Location / / Volume Laterality 09/09/2006 3:39 PM 7 3:40 CURVE CLEANER PM CURVE CLEANER Carroll Avalos MD LAB_1 Performing Organization Address [facility]/ZIP [facility] Phon e Number [facility] [phone] [facility] [address] [place] [address] URINE CULTURE (09/09/2006 3:39 PM CURVE CLEANER) Component Value Ref Test Analysis Performed At [facility] Nexavis Method Time Signature Specimen Urine [facility] Description Midstream Special Unspecified [facility] Requests Culture No Growth [facility] After 1 Day Report Status Final [id number] [facility] Specimen Anatomical Collection Method Collection Time Receive d Time (Source) Location / / Volume Laterality 09/09/2006 3:39 PM 7 3:40 CURVE CLEANER PM CURVE CLEANER Carroll Avalos MD LAB_1 Performing Organization Address [facility] Phon e Number [facility] [phone] [facility] [address] [place] [address] (ABNORMAL) UA MICRO IF (09/09/2006 3:39 PM CURVE CLEANER) [facility] Finjan Method Time Signature Appr Yellow [facility] Appr [...] Volume Laterality 09/09/2006 3:39 PM 7 3:40 CURVE CLEANER PM CURVE CLEANER Carroll Avalos MD LAB_1 Performing Organization Address [facility] Phon e Number [facility] [phone] [address] BASIC METABOLIC PANEL (09/09/2006 3:39 PM CURVE CLEANER) athologist Signature BUN 20 10 - 26 [...] Volume Laterality 09/09/2006 3:39 PM 7 3:40 CURVE CLEANER PM CURVE CLEANER Carroll Avalos MD LAB_1 Performing Organization Address City/[facility] Phon e Number [facility] [phone] [address] (ABNORMAL) CHOLESTEROL LIPID PANEL FAST >12HR (09/09/2006 3:39 PM CURVE CLEANER) P athologist Signature Cholesterol 205 (H) <200 mg/dl [facility] Comment: Result should not be interpreted without the patient's history of cardiovascular risk factors. Triglyceride 137 <200 mg/dl [facility] HDL 40 >35 mg/dl [facility] LDL, Calc. 138 mg/dl [facility] Hours Fasting 12 hours [facility] Specimen Anatomical Collection Method Collection Time Receive d Time (Source) Location / / Volume Laterality 09/09/2006 3:39 PM 7 3:40 CURVE CLEANER PM CURVE CLEANER Carroll Avalos MD LAB_1 Performing Organization Address City/State/ZIP Code Phon e Number [facility] [phone] [facility] [address] [address] documented in this encounter Visit Diagnoses Diagnosis Skin lesion - Primary Unspecified disorder of skin and subcuta neous tissue Need for prophylactic vaccination with c ombined jsfxfnnyrn-oxqkkjp-paekpnhtn (DTP) vaccine Screening cholesterol level Screening for lipoid disorders Screening for diabetes mellitus Frequent urination Urinary frequency Cystocele Cystocele, midline Constipation Unspecified constipation Hypercholesteremia Pure hypercholesterolemia documented in this encounter Care Teams Meteorology Professor Relationship Specialty Start Date End Date Carroll Avalos MD PCP - General 07/08/05 [address] [place], [place] [phone] documented as of this encounter
--- OUTSIDE RECORDS SUMMARY | 2022-05-29 13:38 | XMS_ITS | Encounter Summary ---
:1955 Author Organization [facility] Address [address] [place] [address] Care Team Providers Name Role Phone Alisha Kimball MD Primary Care Provider Encounter Details Date Type Department Care Team Description 01/08/2006 Orders Only [facility] Mammogram I, Sp S CREENING MAMM-MAILG Mammography NEOPL NEC (Primary [address]) [place] [address] Social History Tobacco Use Types [...] Garcia, [facility] [address] [place], [place] [phone] (Wo rk) documented as of this encounter [...] Primary documented in this encounter Care Teams Tank Car Repairer Relationship Specialty Start Date End Date Alisha Kimball MD PCP - General 07/08/05 [address] [place] [address] documented as of this encounter
--- OUTSIDE RECORDS SUMMARY | 2022-05-29 13:38 | XMS_ITS | Encounter Summary ---
:1955 Author Organization [facility] Address [address], [place] [address] Care Team Providers Name Role Phone Alisha Kimball MD Primary Care Provider Encounter Details Date Type Department Care Team Description 11/25/2005 Telephone [facility] Mari Luna MD [address] [facility] [address] [facility] [place], [place] [address] [address] [address] [place], [place] [address] (Wo rk) Social History [...] Elaine Garcia, [facility] [address] [place], [place] [phone] (Wo rk) documented as of this encounter Visit Diagnoses Not on filedocumented in this encounter Care Teams Physical Therapy Director Relationship Specialty Start Date End Date Alisha Kimball MD PCP - General 07/08/[address] [place] [address] documented as of this encounter
--- OUTSIDE RECORDS SUMMARY | 2022-05-29 13:38 | XMS_ITS | Encounter Summary ---
:1955 Author Organization [facility] Address [address] [address] Care Team Providers Name Role Phone Alisha Kimball MD Primary Care Provider Encounter Details Date Type Department Care Team Description 11/27/2005 Office Visit [place] [facility] Mari Pickens MD LICHENIFICATION [address] [place], [place] [address] [address] [address] [place], [place] [address] (Wo rk) Social History [...] left leg. She is traveling out to [place] to attend her son's graduation within the [...] Care Team Description 06/09/2022 Appointment General Dentistry lEaine Garcia, [facility] [address] [place], [place] [phone] (Wo rk) documented as of this encounter Visit Diagnoses Diagnosis Lichenification and lichen simplex chron icus documented in this encounter Care Teams Floor Sanding Machine Operator Relationship Specialty Start Date End Date Alisha Kimball MD PCP - General 07/08/05 [address] [place] [address] documented as of this encounter
--- OUTSIDE RECORDS SUMMARY | 2022-05-29 13:38 | XMS_ITS | Encounter Summary ---
:1955 Author Organization [employer] Address [address] [place] [address] Care Team Providers Name Role Phone Alisha Kimball MD Primary Care Provider Encounter Details Date Type Department Care Team Description 11/30/2007 Office Visit Specialty Center Kiah August H, OTR/L Mallet Finger (Primary [address] Dx) [address] [place] [phone] Social History Tobacco Use Types Packs/Day Years Used Date Smoking Tobacco: Never Alcohol Use Standard Drinks/Week Comments Not Asked 0 (1 standard drink = 0.6 oz pure alcoho l) Sex Assigned at Date Recorded Not on file documented as of this encounter Progress Notes Kiah August H - 11/30/2007 3:20 PM CDT HAND OCCUPATIONAL THERAPY DAILY NOTE 11/30/2007 Patient Name: Loc Velasco [id number] Payor: SELF [id number] Plan: SELF INSURED Product Type: *No Product [...] bath Treatment: Therapeutic Exercises: Quantity: 1 Kiah Beal,OTR/L documented in this encounter Plan of Treatment Upcoming Encounters Date Type Specialty Care Team Description 06/09/2022 Appointment General Dentistry Elaine Garcia, [facility] [address] [place], [place] [phone] (Wo rk) documented as of this encounter Visit Diagnoses Diagnosis Mallet finger - Primary documented in this encounter Care Teams Marine Engine Mechanic Relationship Specialty Start Date End Date Alisha Kimball MD PCP - General 07/08/05 [address] [place] [address] documented as of this encounter
--- OUTSIDE RECORDS SUMMARY | 2022-05-29 13:38 | XMS_ITS | Encounter Summary ---
:1955 Author Organization [employer] Address [address], [place] [address] Care Team Providers Name Role Phone Alisha Kimball MD Primary Care Provider Encounter Details Date Type Department Care Team Description 12/27/2007 Office Visit Specialty Center Kiah August H, OTR/L Mallet Finger (Primary [address] Dx) [address] [place] [phone] Social History Tobacco Use Types Packs/Day Years Used Date Smoking Tobacco: Never Alcohol Use Standard Drinks/Week Comments Not Asked 0 (1 standard drink = 0.6 oz pure alcoho l) Sex Assigned at Date Recorded Not on file documented as of this encounter Progress Notes Kiah August H - 12/27/2007 10:05 AM CDT HAND OCCUPATIONAL THERAPY DAILY NOTE 12/27/2007 Patient Name: Loc Velasco [id number] Payor: SELF [id number] Plan: SELF INSURED Product Type: *No Product [...] Active ROM, Passive ROM, Strengthening and Check conditioner tender/3pt. Pinch strength. Will continue to see pt. 1x/week for next 6 weeks. MINUTES SEEN: 30 Treatment Charges: Physical Agent Modalities: Ultrasound: Quantity: 1 Treatment: Therapeutic Exercises: Quantity: 1 Kiah Beal OTR/L documented in this encounter Plan of Treatment Upcoming Encounters Date Type Specialty Care Team Description 06/09/2022 Appointment General Dentistry Elaine Garcia, [facility] [address] [place] [address] (Wo rk) documented as of this encounter Visit Diagnoses Diagnosis Mallet finger - Primary documented in this encounter Care Teams Medical Associate Relationship Specialty Start Date End Date Alisha Kimball MD PCP - General 07/08/05 [address] [place] [address] documented as of this encounter
--- OUTSIDE RECORDS SUMMARY | 2022-05-29 13:38 | XMS_ITS | Encounter Summary ---
:1955 Author Organization [facility] Address [address] [place] [address] Care Team Providers Name Role Phone Alisha Kimball MD Primary Care Provider Encounter Details Date Type Department Care Team Description 01/26/2006 [facility] MD Malik MALIG NEOPLASMS, [address] [place] [address] [address] [address] [place] [address] Social History Tobacco Use Types [...] Appointment General Dentistry Elaine Garcia, [facility] [address] [place], [place] [phone] (Wo rk) documented as of this encounter Visit Diagnoses Diagnosis Special screening for malignant neoplasm s, colon documented in this encounter Care Teams Furniture Inspector Relationship Specialty Start Date End Date Alisha Kimball MD PCP - General 07/08/05 [address] [place] [address] documented as of this encounter
--- OUTSIDE RECORDS SUMMARY | 2022-05-29 13:38 | XMS_ITS | Encounter Summary ---
:1955 Author Organization [facility] Address [address] [place] [address] Care Team Providers Name Role Phone Alisha Kimball MD Primary Care Provider Encounter Details Date Type Department Care Team Description 01/26/2006 Orders Only [facility] MD [employer] Contact Bill [address] [place] [address] Mailstop [id number] [phone] (Wo rk) Social History Tobacco Use Types [...] Garcia, [facility] [address] [place], [place] [phone] (Wo rk) documented as of this encounter Visit Diagnoses Not on filedocumented in this encounter Care Teams Scrap Dealer Relationship Specialty Start Date End Date Alisha Kimball MD PCP - General 07/08/[address] [place], [place] [phone] documented as of this encounter
--- OUTSIDE RECORDS SUMMARY | 2022-05-29 13:38 | XMS_ITS | Encounter Summary ---
:1955 Author Organization [employer] [facility] Address [address] [place] [address] Care Team Providers Name Role Phone Carroll Avalos MD Primary Care Provider Reason for Visit Reason Comments LAB RESULTS positive parapertussis DNA Encounter Details Date Type Department Care Team Description 07/09/2005 Telephone [facility] Carroll Avalos, LAB RESU LTS (positive Practice parapertussis DNA) [address] [place] [address] [place], [place] [phone] Social History Tobacco Use Types Packs/Day Years Used Date Smoking Tobacco: Never Alcohol Use Standard Drinks/Week Comments Not Asked 0 (1 standard drink = 0.6 oz pure alcoho l) Sex Assigned at Date Recorded Not on file documented as of this encounter Nursing Notes 07/09/2005 11:59 PM BLOOMING MILL SUPERVISOR >> CARROLL AVALOS Mon Jul 20, 2005 [...] she need furthe r treatment? Pt. uses [facility] pharmacy. Has allergy to Sulfa. >> KRYSTYNA GARCÍA Fri Jul 17, 2005 10:57 AM 10:50 AM MLTRC again-see encounter note. Pt Tx on visit. Krystyna García, RN >> CARROLL AVALOS Gloria Jul 09, 2005 1:21 PM Called Jackie at [facility]. She recommended treating the patient but no prophylaxi s for contacts. Unable to reach the patient and message left at home to call back. Office number lety conroy is a fax number. Carroll Avalos MD documented in this encounter Plan of Treatment Upcoming Encounters Date Type Specialty Care Team Description 06/09/2022 Appointment General Dentistry Elaine Garcia, [facility] [address] [place], [place] [phone] (Wo rk) documented as of this encounter Visit Diagnoses Not on filedocumented in this encounter Care Teams Entry Level Sales Associate Relationship Specialty Start Date End Date Carroll Avalos MD PCP - General 07/08/05 [address] [place], [place] [phone] documented as of this encounter
--- OUTSIDE RECORDS SUMMARY | 2022-05-29 13:39 | XMS_ITS | Encounter Summary ---
:1955 Author Organization [facility] Address [address], [place] [address] Care Team Providers Name Role Phone Luis Pierce MD Primary Care Provider Unavailable Reason for Visit Reason Comments PAIN, NOS VIA INTERFACE Encounter Details Date Type Department Care Team Description 01/27/2000 Office Visit [facility] Miky Sultana MD ANKLE ENTHESOPATHY NOS Practice [address] [facility] [address] [place] [address] [place] [address] Social History Tobacco Use Types Packs/Day Years [...] anti-inflammatory medications and maybe even try an cubj-yir-gpspjso arch support. cc: documented in this encounter Plan of Treatment Upcoming Encounters Date Type Specialty Care Team Description 06/09/2022 Appointment General Dentistry Elaine Garcia, [facility] [address] [place] [address] (Wo rk) documented as of this encounter Visit Diagnoses Diagnosis Enthesopathy of ankle and tarsus, unspec ified documented in this encounter Care Teams Personnel Manager Relationship Specialty Start Date End Date Luis Pierce MD PCP - General 05/27/1998 documented as of this encounter
--- OUTSIDE RECORDS SUMMARY | 2022-05-29 13:39 | XMS_ITS | Encounter Summary ---
:1955 Author Organization [facility] Address [address] [place] [address] Care Team Providers Name Role Phone Luis Pierce MD Primary Care Provider Unavailable Encounter Details Date Type Department Care Team Description 08/18/2001 Orders Only [facility] Hiram Romero MD [address] [place] [address] [place] [address] [phone] (Wo rk) Social History Tobacco Use Types Packs/Day Years Used Date Smoking Tobacco: Never Assessed Sex Assigned at Date Recorded Not on file documented as of this encounter Plan of Treatment Upcoming Encounters Date Type Specialty Care Team Description 06/09/2022 Appointment General Dentistry Elaine Garcia, [facility] [address] [place] [address] (Wo rk) documented as of this encounter Visit Diagnoses Not on filedocumented in this encounter Care Teams Healthcare Receptionist Relationship Specialty Start Date End Date Luis Pierce MD PCP - General 05/27/1998 documented as of this encounter
--- OUTSIDE RECORDS SUMMARY | 2022-05-29 13:39 | XMS_ITS | Encounter Summary ---
:1955 Author Organization [facility] Address [address] [place] [address] Care Team Providers Name Role Phone Alisha Kimball MD Primary Care Provider Encounter Details Date Type Department Care Team Description 05/03/2000 Orders Only [facility] [address] [place], [place] [address] Social History Tobacco Use Types Packs/Day Years Used Date Smoking Tobacco: Never Assessed Sex Assigned at Date Recorded Not on file documented as of this encounter Plan of Treatment Upcoming Encounters Date Type Specialty Care Team Description 06/09/2022 Appointment General Dentistry Elaine Garcia, [facility] [address] [place] [address] (Wo rk) documented as of this encounter Procedures Procedure Name Priority Date/Time Associated Diagnosis Comme nts ACCUCHECK GLU Waiting 05/03/2000 6:54 PM Results for this RANDOM <8HR FAST OFFICE PROFESSIONALS procedure a re in (WAITING) the results section. UA WITH MICRO Waiting 05/03/2000 6:54 PM Results for this OFFICE PROFESSIONALS procedure are i n the results section. ESR Waiting 05/03/2000 6:54 PM Results f or this OFFICE PROFESSIONALS procedure are i n the results section. documented in this encounter Results ESR (05/03/2000 6:54 PM OFFICE PROFESSIONALS) P athologist Signature ESR 12 0 - 20 [facility] mm/hr Specimen Anatomical Collection Method Collection Time Receive d Time (Source) Location / / Volume Laterality 05/03/2000 6:54 PM 0 6:55 OFFICE PROFESSIONALS PM OFFICE PROFESSIONALS Full Range [facility] [place]_1 Performing Organization Address City/[facility]/ZIP Code Phon e Number [facility] [phone] [facility] [address] [place] [phone] UA WITH MICRO (05/03/2000 6:54 PM OFFICE PROFESSIONALS) P athologist Signature Appr Yellow [facility] Appr Clear [facility] [...] / / Volume Laterality 05/03/2000 6:54 PM 10//200 0 6:55 OFFICE PROFESSIONALS PM OFFICE PROFESSIONALS Full Range [employer] LAB_1 Performing Organization Address [facility]/ZIP Code Phon e Number [facility] [phone] [facility] [address] [place] [phone] ACCUCHECK GLU RANDOM <8HR FAST WAITING (05/03/2000 6:54 PM OFFICE PROFESSIONALS) Component Value Ref Test Analysis Performed At Patholo gist Range Method Time Signature Glucose, bG 92 65 - 115 [facility] Strip mg/dl Glucose, bG Semi-quantitative result (bG) may be [facility] Strip 5-10% lower than quantitative result. Hours Fasting 2 hours [facility] Specimen Anatomical Collection Method Collection Time Receive d Time (Source) Location / / Volume Laterality 05/03/2000 6:54 PM 10/30/200 0 6:55 OFFICE PROFESSIONALS PM OFFICE PROFESSIONALS Full Range [facility] [place] LAB_1 Performing Organization Address City/[facility]/ZIP Code Phon e Number [facility] [phone] [facility] [address] [phone] documented in this encounter Visit Diagnoses Not on filedocumented in this encounter Care Teams Tobacco Educator Relationship Specialty Start Date End Date Alisha Kimball MD PCP - General 07/08/[address] [place] [address] documented as of this encounter
--- OUTSIDE RECORDS SUMMARY | 2022-05-29 13:39 | XMS_ITS | Encounter Summary ---
:1955 Author Organization [facility] Address [address] [place] [address] Care Team Providers Name Role Phone Luis Pierce MD Primary Care Provider Unavailable Reason for Visit Reason Comments BACK PAIN VIA INTERFACE Encounter Details Date Type Department Care Team Description 12/18/1999 Office Visit [facility] Michele ury LOW BACK PAIN(ACUTE)<6 WEEKS ; [address] [place] [address] Social History Tobacco Use Types Packs/Day Years Used Date Smoking Tobacco: Never Assessed Sex Assigned at Date Recorded Not on file documented as of this encounter Progress Notes RodriguezNick quinonez W - 12/18/1999 12:00 AM CDTS: One [...] no bacteria. A: Low back pain. P: Fmrd-bjl-pigllmn ibuprofen 800 mg three times a day. [...] General Dentistry Elaine Garcia, [facility] [address] [place] [address] (Wo rk) documented as of this encounter Visit Diagnoses Diagnosis Lumbago Laboratory examination documented in this encounter Care Teams Web Operations Administrator Relationship Specialty Start Date End Date Luis Pierce MD PCP - General 05/27/1998 documented as of this encounter
--- OUTSIDE RECORDS SUMMARY | 2022-05-29 13:39 | XMS_ITS | Encounter Summary ---
:1955 Author Organization [facility] Address [address] [place] [address] Care Team Providers Name Role Phone Alisah Kimball MD Primary Care Provider Encounter Details Date Type Department Care Team Description 08/27/1999 Orders Only Miky Sultana MD [address] [facility] [place] [address] (Wo rk) Social History Tobacco Use Types Packs/Day Years Used Date Smoking Tobacco: Never Assessed Sex Assigned at Date Recorded Not on file documented as of this encounter Plan of Treatment Upcoming Encounters Date Type Specialty Care Team Description 06/09/2022 Appointment General Dentistry Elaine Garcia, [facility] [address] [place], [place] [phone] (Wo rk) documented as of this encounter Visit Diagnoses Not on filedocumented in this encounter Care Teams Special Needs Teacher Relationship Specialty Start Date End Date Alisha Kimball MD PCP - General 07/08/05 [address] [place], [place] [phone] documented as of this encounter
--- OUTSIDE RECORDS SUMMARY | 2022-05-29 13:39 | XMS_ITS | Encounter Summary ---
:1955 Author Organization [facility] Address [address], [place] [address] Care Team Providers Name Role Phone Luis Pierce MD Primary Care Provider Unavailable Encounter Details Date Type Department Care Team Description 01/17/2001 Office Visit [facility] Miky Sultana MD INT DERANGEMENT KNEE Practice [address] [facility] NOS [address] [place] [address] [place] [address] [phone] Social History Tobacco Use Types Packs/Day Years [...] Dentistry Elaine Garcia, [facility] [address] [place] [address] (Wo rk) documented as of this encounter Visit Diagnoses Diagnosis Unspecified internal derangement of knee documented in this encounter Care Teams Linotypist Relationship Specialty Start Date End Date Luis Pierce MD PCP - General 05/27/1998 documented as of this encounter
--- OUTSIDE RECORDS SUMMARY | 2022-05-29 13:39 | XMS_ITS | Encounter Summary ---
:1955 Author Organization [facility] Address [address] [place] [address] Care Team Providers Name Role Phone Alisha Kimball MD Primary Care Provider Encounter Details Date Type Department Care Team Description 12/18/1999 Orders Only [facility] [address] [place], [place] [phone] Social History Tobacco Use Types Packs/Day Years Used Date Smoking Tobacco: Never Assessed Sex Assigned at Date Recorded Not on file documented as of this encounter Plan of Treatment Upcoming Encounters Date Type Specialty Care Team Description 06/09/2022 Appointment General Dentistry Elaine Garcia, [facility] [address] [place] [address] (Wo rk) documented as of this encounter Procedures Procedure Name Priority Date/Time Associated Diagnosis Comme nts UA WITH MICRO Waiting 12/18/1999 7:09 PM Results for this CDT procedure are i n the results section . documented in this encounter Results (ABNORMAL) UA WITH MICRO (12/18/1999 7:09 PM CDT) [facility] Method Time Signature Appr Pale Yel [facility] [...] 0 7:10 CDT PM CDT Im Trauma [facility] LAB_1 Performing Organization Address City/State/ZIP Code Phon e Number [facility] [phone] [facility] [address] [address] documented in this encounter Visit Diagnoses Not on filedocumented in this encounter Care Teams Nursing Informatics Clinical Analyst Relationship Specialty Start Date End Date Alisha Kimball MD PCP - General 07/08/[address] [place], [place] [phone] documented as of this encounter
--- OUTSIDE RECORDS SUMMARY | 2022-05-29 13:39 | XMS_ITS | Encounter Summary ---
:1955 Author Organization [employer] [facility] Address [address] [place] [address] Care Team Providers Name Role Phone Luis [...] cc: Radiology [place] Full Range I [employer] CULTURAL AIRCRAFT PILOT documented in this encounter Plan of Treatment Upcoming Encounters Date Type Specialty Care Team Description 06/09/2022 Appointment General Dentistry Elaine Garcia, [facility] [address] [place] [address] (Wo rk) documented as of this encounter Procedures Procedure Name Priority Date/Time Associated Diagnosis Comme nts RADEX SPI LUMBOSAC 05/03/2000 12:00 AM Re sults for this 2/3 VIEWS AGRICULTURAL AIRCRAFT PILOT procedure are i n the results section. documented in this encounter Results L-SPINE 2-3 VIEWS (05/03/2000 12:00 AM AGRICULTURAL AIRCRAFT PILOT) Anatomical Region Laterality Modality Other Specimen (Source) Anatomical Location Collection Method / Collectio n Time Received Time / Laterality Volume 05/03/2000 Transcriptions Leia Mora H - 05/03/2000 12:00 AM [facility] LINICAL DATA: ATYPICAL LOW BACK PAIN INTERPRETATION: LUMBAR SPINE 05/04/00: FINDINGS: There is disk space narrowing and end plate spurring from L2-3 to L5-S1 compatible with degenerative di sk disease. Degenerative facet joint disease is also seen at L4-5 and L 5-S1. No acute fracture of subluxation. Leia Mora MD cc: Radiology [place] Full Range I [facility] Full Range [facility] RAD_1 documented in this encounter Visit Diagnoses Not on filedocumented in this encounter Care Teams Forestry Engineer Relationship Specialty Start Date End Date Luis Pierce MD PCP - General 05/27/1998 documented as of this encounter
--- OUTSIDE RECORDS SUMMARY | 2022-05-29 13:39 | XMS_ITS | Encounter Summary ---
:1955 Author Organization [facility] Address [address], [place] [address] Care Team Providers Name Role Phone Miky [...] General Dentistry Elaine Garcia, [facility] [address] [place] [address] (Wo rk) documented as of this encounter Procedures Procedure Name Priority Date/Time Associated Diagnosis Comme [facility] DERMATOPATHOLOGY Routine 01/15/2000 Seborrheic Keratosis Nos Results for this procedure are i n the results section . documented in this encounter Results DERMATOPATHOLOGY (01/15/2000) Component Value Ref Test Analysis Performed At [facility] Method Time Signature Dermatopathology [facility] DERMATOPATHOLOGY Patient: BENY VERDUGO : 09/11/1937 Med Rec: [id number] Phone: ??-- Date of BX: 01/15/2000 Date Acc: 01/16/2000 Date of DX: 01/20/2000 Physician: NITISH GOTTI MD INTERP: Mat Delgado,Miky Soni MICRO: ??The specimen shows hyperkeratosis with basaloid epidermal hyperplasia and horn cyst formation typical of a seborrheic keratosis. DIAGNOSIS: ??NECK, LEFT : SEBORRHEIC KERATOSIS SNOMED-T: ??T-[id number] SNOMED-M: M-14115 ICD9-CM: 702.19 {} Specimen (Source) Anatomical Location Collection Method / Collectio n Time Received Time / Laterality Volume 01/15/2000 Nitish Gotti MD PAPS Performing Organization Address City/State/[facility] Code Phon e Number [facility] DERMATOPATHOLOGY [address] [place] [address] documented in this encounter Visit Diagnoses Diagnosis Other seborrheic keratosis documented in this encounter Care Teams Vacuum Frame Operator Relationship Specialty Start Date End Date Miky Sultana MD PCP - General 09/21/01 07/07/05 [address] [place] [address] documented as of this encounter
--- OUTSIDE RECORDS SUMMARY | 2022-05-29 13:39 | XMS_ITS | Encounter Summary ---
:1955 Author Organization [facility] Address [address] [place] [address] Care Team Providers Name Role Phone Alisha Kimball MD Primary Care Provider Encounter Details Date Type Department Care Team Description 05/03/2000 Orders Only [facility] [address] [place], [place] [phone] Social History Tobacco Use Types Packs/Day Years Used Date Smoking Tobacco: Never Assessed Sex Assigned at Date Recorded Not on file documented as of this encounter Plan of Treatment Upcoming Encounters Date Type Specialty Care Team Description 06/09/2022 Appointment General Dentistry Elaine Garcia, [facility] [address] [place] [address] (Wo rk) documented as of this encounter Procedures Procedure Name Priority Date/Time Associated Diagnosis Comme nts URINE CULTURE Routine 05/03/2000 6:54 PM Results for this PHYSICAL SECURITY MANAGER procedure are i n the results section . documented in this encounter Results URINE CULTURE (MIDSTREAM) (05/03/2000 6:54 PM PHYSICAL SECURITY MANAGER) [facility] Method Time Signature Specimen Urine [facility] Description Special None [facility] Requests Culture No Growth [facility] After 1 Day Report Status Final [facility] Report Status [id number] [facility] Specimen Anatomical Collection Method Collection Time Receive d Time (Source) Location / / Volume Laterality 05/03/2000 6:54 PM 0 6:55 PHYSICAL SECURITY MANAGER PM PHYSICAL SECURITY MANAGER Full Range [facility] LAB_1 Performing Organization Address City/State/ZIP Code Phon e Number [facility] [phone] [place] [id number] [address] [address] documented in this encounter Visit Diagnoses Not on filedocumented in this encounter Care Teams Telephone Operator Relationship Specialty Start Date End Date Alisha Kimball MD PCP - General 07/08/05 [address] [place] [address] documented as of this encounter
--- OUTSIDE RECORDS SUMMARY | 2022-05-29 13:39 | XMS_ITS | Encounter Summary ---
:1955 Author Organization [facility] Address [address] [place] [address] Care Team Providers Name Role Phone Alisha Kimabll MD Primary Care Provider Encounter Details Date Type Department Care Team Description 08/02/2001 Orders Only [facility] [address] [place], [place] [address] Social History Tobacco Use Types Packs/Day Years Used Date Smoking Tobacco: Never Assessed Sex Assigned at Date Recorded Not on file documented as of this encounter Plan of Treatment Upcoming Encounters Date Type Specialty Care Team Description 06/09/2022 Appointment General Dentistry Elaine Garcia, [facility] [address] [place] [address] (Wo rk) documented as of this encounter Procedures Procedure Name Priority Date/Time Associated Diagnosis Comme nts STREP GRP A, RAPID Waiting 08/02/2001 6:56 PM Res ults for this SCREEN FARMWORKER PULLET FARM procedure are i n the results section. documented in this encounter Results RAPID, GPA STREP SCREEN (WAITI (08/02/2001 6:56 PM [employer]ARM[employer]) Cook Taste [facility] gist Method Time Signature Patient Home [id number] [facility] Phone # Patient Work [phone] [facility] Phone # Grp A Rapid Negative [facility] Screen Grp A Culture Negative [facility] Final Specimen Anatomical Collection Method Collection Time Receive d Time (Source) Location / / Volume Laterality 08/02/2001 6:56 PM 2 6:57 [employer] PM [employer] Full Range [facility] LAB_1 Performing Organization Address City/State/ZIP Code Phon e Number [facility] [phone] [facility] [address] [address] documented in this encounter Visit Diagnoses Not on filedocumented in this encounter Care Teams English Teacher Relationship Specialty Start Date End Date Alisha Kimball MD PCP - General 07/08/05 [address], [place] [phone] documented as of this encounter
--- OUTSIDE RECORDS SUMMARY | 2022-05-29 13:39 | XMS_ITS | Encounter Summary ---
:1955 Author Organization [facility] Address [address] [facility] [place] [address] Care Team Providers Name Role Phone Miky Sultana MD Primary Care Provider Encounter Details Date Type Department Care Team Description 11/20/2002 Office Visit [facility] Miky Sultana MD TENOSYNOVITIS Practice [address] [facility] FOOT/ANKLE [address] [place] [address] [place] [address] Social History Tobacco Use Types Packs/Day Years [...] Tobacco Status reviewed? (see History Social-Substance) -YES cell attendant helper offered? -NOT APPLICABLE. Aspirin taken daily? -NO BP was taken on the RIGHT arm. Large cuff used? -NO Health Education given? -NO. Contact phone number [phone](home) [phone] (work), alternate phone number . James Hudson, NANCY 11/20/2002 1:25 PM No current prescriptions on file. Miky Arroyo - 11/20/2002 12:00 AM CDTPROBLEM: R foot [...] General Dentistry Elaine Garcia, [facility] [address] [place] [address] (Wo rk) documented as of this encounter Visit Diagnoses Diagnosis Tenosynovitis of foot and ankle documented in this encounter Care Teams Cementer Machine Joiner Relationship Specialty Start Date End Date Miky Sultana MD PCP - General 09/21/01 07/07/05 [address] [place] [address] documented as of this encounter
--- OUTSIDE RECORDS SUMMARY | 2022-05-29 13:39 | XMS_ITS | Encounter Summary ---
:1955 Author Organization [facility] Address [address] [address] Care Team Providers Name Role Phone Miky Sultana MD Primary Care Provider Reason for Visit Reason Comments LAB RESULTS Encounter Details Date Type Department Care Team Description 02/26/2005 Telephone [facility] Carroll Steinberg MD LAB RESULTS [address] [facility]. [address] [place] [address] [place], [place] [phone] (Wo rk) Social History Tobacco Use Types [...] back. Veronica Dickens RN >> CARROLL AVALOS [facility] Feb 26, 2005 9:04 AM Called [...] 06/09/2022 Appointment General Dentistry Elaine Garcia, [facility] [address] [place] [address] (Wo rk) documented as of this encounter Visit Diagnoses Diagnosis Unspecified essential hypertension (HRC) - Primary Unspecified essential hypertension documented in this encounter Care Teams Bessemer Bottom Maker Relationship Specialty Start Date End Date Miky Sultana MD PCP - General 09/21/01 07/07/[address] [place] [address] [place] [address] documented as of this encounter
--- OUTSIDE RECORDS SUMMARY | 2022-05-29 13:39 | XMS_ITS | Encounter Summary ---
:1955 Author Organization [facility] Address [address] [address] Care Team Providers Name Role Phone Miky Sultana MD Primary Care Provider Reason for Visit Reason Comments BP CHECK,NURSE Encounter Details Date Type Department Care Team Description 03/16/2005 Office Visit [facility]/Christopher/Simona Sibley HYPERTENSI ON NOS Department Nursing [address] [place] [address] [place] [address] [phone] Social History Tobacco Use Types Packs/Day Years [...] Dentistry Elaine Garcia, [facility] [address] [place] [address] (Wo rk) documented as of this encounter Visit Diagnoses Diagnosis Unspecified essential hypertension (HRC) Unspecified essential hypertension documented in this encounter Care Teams Mirror Painter Relationship Specialty Start Date End Date Miky Sultana MD PCP - General 09/21/01 07/07/[address] [place] [address] [place] [address] documented as of this encounter
--- OUTSIDE RECORDS SUMMARY | 2022-05-29 13:39 | XMS_ITS | Encounter Summary ---
:1955 Author Organization [employer] Address [address] [place] [address] Care Team Providers Name Role Phone Luis Pierce MD Primary Care Provider Unavailable Reason for Visit Reason Comments ANKLE PAIN VIA INTERFACE Encounter Details Date Type Department Care Team Description 10/04/1999 Orders Only [facility] SPRAIN/STRAIN OF ANKLE NOS; [address] [facility] LOWER LEG INJURY NOS [place], [place] [id number] Social History Tobacco Use Types Packs/Day Years [...] and recheck with her usual clinic, at [place], for follow-up care. A: Right ankle sprain. P: As above. IN SUMMARY: RIGHT ANKLE SPRAIN cc: K ABSORPTION FLOOR LAYER documented in this encounter Procedure Notes Brittney [...] cc: Radiology SP Full Range I Spucc K ABSORPTION FLOOR LAYER documented in this encounter Plan of Treatment Upcoming Encounters Date Type Specialty Care Team Description 06/09/2022 Appointment General Dentistry Elaine Garcia, [facility] [address] [place] [address] (Wo rk) documented as of this encounter Procedures Procedure Name Priority Date/Time Associated Diagnosis Comme nts RADEX ANKLE COMPL 10/04/1999 12:00 AM Lower Leg Injury Nos Results for this MINIMUM 3 VIEWS SHOCK ABSORPTION FLOOR LAYER procedure ar e in the results section. documented in this encounter Results ANKLE 3 VIEWS (10/04/1999 12:00 AM SHOCK ABSORPTION FLOOR LAYER) Anatomical Region Laterality Modality Other Specimen (Source) [...] foot documented in this encounter Care Teams Supervisor Wood Room Relationship Specialty Start Date End Date Luis Pierce MD PCP - General 05/27/1998 documented as of this encounter
--- OUTSIDE RECORDS SUMMARY | 2022-05-29 13:39 | XMS_ITS | Encounter Summary ---
:1955 Author Organization [employer] Address [address] [place] [address] Care Team Providers Name Role Phone Miky Sultana MD Primary Care Provider Reason for Visit Reason Comments INFECTION, URINARY TRACT Encounter Details Date Type Department Care Team Description 02/25/2005 Office Visit [facility] Alisha Kimball, URINARY FREQUENCY (Primary Dx); Practice NONSPECIF SKIN ERUPT NEC; [address] ELEV BL PRES W/[place] [address] [place] [address] [phone] Social History Tobacco Use Types Packs/Day Years [...] is my first visit with this 50 -anaa-qbh-zxnwxw seen today primarily for evaluation of some [...] trial of Nystatin cream bid layered with esqs-xmm-[id number] 1% cortisone cream. She is counseled that [...] She may even need to use a executive chairman of the board after showering. 2. Hypertension. She tells me her blood pressure, overall, has been increasing along with her weight. We reviewed her chart today. There is a family history of hypertension in both parents. Her father also had an NV. We discussed medications. I recommended first doing some screening lab work. See orders. If those results are normal, I will contact her to get her started on some blood pressure medication. A cc: documented in this encounter Plan of Treatment Upcoming Encounters Date Type Specialty Care Team Description 06/09/2022 Appointment General Dentistry Elaine Garcia, [facility] [address] [place] [address] (Wo rk) documented as of this encounter Results HEMOGRAM/PLTS (02/25/2005 2:35 PM CDT) athologist Signature WBC 8.5 4.0 - 11.0 [facility] k/ul RBC 4.58 4.0 - 5.2 [facility] M/ul Hemoglobin 13.9 12.0 - 16.0 [facility] g/dl HCT 40.0 36.0 - 46.0 [facility] % MCV 87.1 80 - 100 fl [facility] MCH 30.3 26 - 34 pg [facility] MCHC 34.8 32 - 36 % [facility] RDW 13.1 11.5 - 14.5 [facility] % Platelets 286 150 - 450 [facility] k/ul Specimen Anatomical Collection Method Collection Time Receive d Time (Source) Location / / Volume Laterality 02/25/2005 2:35 PM 5 2:36 CDT PM CDT Alisha Kimball MD LAB_1 Performing Organization Address City/[facility] Phon e Number [facility] [phone] [address] SODIUM (02/25/2005 2:35 PM CDT) athologist Signature Sodium 140 135 - 145 [facility] mmol/L Specimen Anatomical Collection Method Collection Time Receive d Time (Source) Location / / Volume Laterality 02/25/2005 2:35 PM 5 2:36 CDT PM CDT Alisha Kimball MD LAB_1 Performing Organization Address [facility] Phon e Number [facility] [phone] [address] POTASSIUM (02/25/2005 2:35 PM CDT) athologist Signature Potassium 4.2 3.5 - 5.3 [facility] mmol/L Specimen Anatomical Collection Method Collection Time Receive d Time (Source) Location / / Volume Laterality 02/25/2005 2:35 PM 5 2:36 CDT PM CDT Alisha Kimball MD LAB_1 Performing Organization Address [facility] Phon e Number [facility] [phone] [facility] [address] [phone] GLUCOSE - RANDOM < 8HR FASTING (V77.1) (02/25/2005 2:35 PM CDT) athologist Signature Glucose 111 65 - 115 [facility] mg/dl Hours Fasting 2 hours [facility] Specimen Anatomical Collection Method Collection Time Receive d Time (Source) Location / / Volume Laterality 02/25/2005 2:35 PM 5 2:36 CDT PM CDT Alisha Kimball MD LAB_1 Performing Organization Address [facility] Phon e Number [facility] [phone] [facility] [address] [place] [phone] CO2 (02/25/2005 2:35 PM CDT) athologist Signature CO2 28 22 - 31 [facility] mmol/L Specimen Anatomical Collection Method Collection Time Receive d Time (Source) Location / / Volume Laterality 02/25/2005 2:35 PM 5 2:36 CDT PM CDT Alisha Kimball MD LAB_1 Performing Organization Address [facility] Phon e Number [facility] [phone] [facility] [address] [place] [phone] CREATININE / GFR (02/25/2005 2:35 PM CDT) athologist Signature Creatinine 0.9 0.6 - 1.3 [facility] mg/dl GFR, Estimated 70.2 >60 [facility] ml/min/1.7 3m2 GFR, Est., If >80.0 >60 [facility] Black ml/min/1.7 3m2 Specimen Anatomical Collection Method Collection Time Receive d Time (Source) Location / / Volume Laterality 02/25/2005 2:35 PM 5 2:36 CDT PM CDT Alisha Kimball MD LAB_1 Performing Organization Address [facility] Phon e Number [facility] [phone] [facility] [address] [address] CHLORIDE (02/25/2005 2:35 PM CDT) athologist Signature Chloride 104 95 - 105 [facility] mmol/L Specimen Anatomical Collection Method Collection Time Receive d Time (Source) Location / / Volume Laterality 02/25/2005 2:35 PM 5 2:36 CDT PM CDT Alisha Kimball MD LAB_1 Performing Organization Address [facility] Phon e Number [facility] [phone] [facility] [address] [place] [phone] CALCIUM (02/25/2005 2:35 PM CDT) athologist Signature Calcium 9.5 8.2 - 10.0 [facility] mg/dl Specimen Anatomical Collection Method Collection Time Receive d Time (Source) Location / / Volume Laterality 02/25/2005 2:35 PM 5 2:36 CDT PM CDT Alisha Kimball MD LAB_1 Performing Organization Address [facility] Phon e Number [facility] [phone] [facility] [address] [place] [phone] BUN (02/25/2005 2:35 PM CDT) athologist Signature BUN 17 10 - 26 [facility] mg/dl Specimen Anatomical Collection Method Collection Time Receive d Time (Source) Location / / Volume Laterality 02/25/2005 2:35 PM 5 2:36 CDT PM CDT Alisha Kimball MD LAB_1 Performing Organization Address [facility] Phon e Number [facility] [employer] [phone] [facility] [address] [place] [phone] ALT (SGPT) (02/25/2005 2:35 PM CDT) athologist Signature ALT (SGPT) 34 0 - 55 U/L [facility] Specimen Anatomical Collection Method Collection Time Receive d Time (Source) Location / / Volume Laterality 02/25/2005 2:35 PM 5 2:36 CDT PM CDT Alisha Kimball MD LAB_1 Performing Organization Address [facility] Phon e Number [employer] [phone] [address] AST (02/25/2005 2:35 PM CDT) athologist Signature AST (SGOT) 16 <45 U/L [facility] Specimen Anatomical Collection Method Collection Time Receive d Time (Source) Location / / Volume Laterality 02/25/2005 2:35 PM 5 2:36 CDT PM CDT Alisha Kimball MD LAB_1 Performing Organization Address [facility] Phon e Number [employer] [phone] [facility] [address] [place] [phone] URINE CULTURE IF (02/25/2005 1:40 PM CDT) [facility] Method Time Signature Urine Cult If UC Not [facility] Indicated Specimen Anatomical Collection Method Collection Time Receive d Time (Source) Location / / Volume Laterality 02/25/2005 1:40 PM 5 1:41 CDT PM CDT Alisha Kimball MD LAB_1 Performing Organization Address [facility] Phon e Number [facility] [employer] [phone] [facility] [address] [place] [phone] UA MICRO IF (02/25/2005 1:40 PM CDT) [facility] Method Time Signature Appr Yellow [facility] Appr [...] Organization Address City/State/ZIP Code Phon e Number [facility] [phone] [facility] [address] [address] documented in this encounter Visit Diagnoses Diagnosis Urinary frequency - Primary Rash and other nonspecific skin eruption Elevated blood pressure reading without diagnosis of hypertension documented in this encounter Care Teams General Clerk Relationship Specialty Start Date End Date Miky Sultana MD PCP - General 09/21/01 07/07/05 [address] [place] [address] documented as of this encounter
--- OUTSIDE RECORDS SUMMARY | 2022-05-29 13:39 | XMS_ITS | Encounter Summary ---
:1955 Author Organization [employer] Address [address] [place] [address] Care Team Providers Name Role Phone Luis Pierce MD Primary Care Provider Unavailable Encounter Details Date Type Department Care Team Description 11/22/2000 Office Visit [facility] Miky Salinas MD COUGH; [address] [place] [address] [place] [address] [phone] (Wo rk) Social History Tobacco Use Types [...] Description 06/09/2022 Appointment General Dentistry Elaine Garcia, [address] [place] [address] (Wo rk) documented as of this encounter [...] ronic documented in this encounter Care Teams Hydraulic Engineer Relationship Specialty Start Date End Date Luis Pierce MD PCP - General 05/27/1998 documented as of this encounter
--- OUTSIDE RECORDS SUMMARY | 2022-05-29 13:39 | XMS_ITS | Encounter Summary ---
:1955 Author Organization [employer] Address [address] [place] [address] Care Team Providers Name Role Phone Luis Pierce MD Primary Care Provider Unavailable Reason for Visit Reason Comments PAIN, FOOT VIA INTERFACE Encounter Details Date Type Department Care Team Description 02/17/2000 Office Visit [facility] Anam Mosquera DPM PAIN IN LIMB Surgery/Podiatry [address] [place], [place] [address] (Wo rk) Social History [...] Elaine Garcia, [facility] [address] [place] [address] (Wo rk) documented as of this encounter Visit Diagnoses Diagnosis Pain in limb documented in this encounter Care Teams Business Operations Consultant Relationship Specialty Start Date End Date Luis Pierce MD PCP - General 05/27/1998 documented as of this encounter
--- OUTSIDE RECORDS SUMMARY | 2022-05-29 13:39 | XMS_ITS | Encounter Summary ---
:1955 Author Organization [employer] Address [address], [place] [address] Care Team Providers Name Role Phone Miky Sultana MD Primary Care Provider Encounter Details Date Type Department Care Team Description 02/25/2005 Notes/Orders [facility] Alisha Kimball, URINARY FREQUENCY; Practice ELEV BL PRES W/O HYPERTN [address] [place] [address] [place], [place] [phone] Social History Tobacco Use Types Packs/Day Years Used Date Smoking Tobacco: Never Alcohol Use Standard Drinks/Week Comments Not Asked 0 (1 standard drink = 0.6 oz pure alcoho l) Sex Assigned at Date Recorded Not on file documented as of this encounter Plan of Treatment Upcoming Encounters Date Type Specialty Care Team Description 06/09/2022 Appointment General Dentistry Elaine Garcia, [facility] [address] [place], [place] [phone] (Wo rk) documented as of this encounter [...] ANION GAP (CALC.) (02/25/2005 2:35 PM CDT) P athologist Signature Anion Gap 8 7 - 17 [facility] (calc.) mmol/L Specimen Anatomical Collection Method Collection Time Receive d Time (Source) Location / / Volume Laterality 02/25/2005 2:35 PM 5 2:36 CDT PM CDT Alisha Kimball MD LAB_1 Performing Organization Address City/State/ZIP Code Phon e Number [facility] [phone] [address] HEMOGRAM/PLTS (02/25/2005 2:35 PM CDT) athologist Signature WBC 8.5 4.0 - 11.0 [facility] k/ul RBC 4.58 4.0 - 5.2 [facility] M/ul Hemoglobin 13.9 12.0 - 16.0 [facility] g/dl HCT 40.0 36.0 - 46.0 [facility] % MCV 87.1 80 - 100 fl [facility] MCH 30.3 26 - 34 pg [facility] MCHC 34.8 32 - 36 % [facility] RDW 13.1 11.5 - 14.5 [facility] % Platelets 286 150 - 450 [facility] k/ul Specimen Anatomical Collection Method Collection Time Receive d Time (Source) Location / / Volume Laterality 02/25/2005 2:35 PM 5 2:36 CDT PM CDT Alisha Kimball MD LAB_1 Performing Organization Address City/[facility]/ZIP [facility] Phon e Number [employer] [phone] [address] SODIUM (02/25/2005 2:35 PM CDT) athologist Signature Sodium 140 135 - 145 [facility] mmol/L Specimen Anatomical Collection Method Collection Time Receive d Time (Source) Location / / Volume Laterality 02/25/2005 2:35 PM 5 2:36 CDT PM CDT Alisha Kimball MD LAB_1 Performing Organization Address City/[facility] Phon e Number [facility] [employer] [phone] [address] POTASSIUM (02/25/2005 2:35 PM CDT) athologist Signature Potassium 4.2 3.5 - 5.3 [facility] mmol/L Specimen Anatomical Collection Method Collection Time Receive d Time (Source) Location / / Volume Laterality 02/25/2005 2:35 PM 5 2:36 CDT PM CDT Alisha Kimball MD LAB_1 Performing Organization Address [facility]/ZIP Code Phon e Number [facility] [phone] [facility] [address] [phone] GLUCOSE - RANDOM < 8HR FASTING (V77.1) (02/25/2005 2:35 PM CDT) athologist Signature Glucose 111 65 - 115 [facility] mg/dl Hours Fasting 2 hours [facility] Specimen Anatomical Collection Method Collection Time Receive d Time (Source) Location / / Volume Laterality 02/25/2005 2:35 PM 5 2:36 CDT PM CDT Alisha Kimball MD LAB_1 Performing Organization Address [facility] Phon e Number [facility] [employer] [phone] [facility] [address] [place] [phone] CO2 (02/25/2005 2:35 PM CDT) athologist Signature CO2 28 22 - 31 [facility] mmol/L Specimen Anatomical Collection Method Collection Time Receive d Time (Source) Location / / Volume Laterality 02/25/2005 2:35 PM 5 2:36 CDT PM CDT Alisha Kimball MD LAB_1 Performing Organization Address City/[facility] Phon e Number [facility] [employer] [phone] [facility] [address] [place] [phone] CREATININE / GFR (02/25/2005 2:35 PM CDT) athologist Signature Creatinine 0.9 0.6 - 1.3 [facility] mg/dl GFR, Estimated 70.2 >60 [facility] ml/min/1.7 3m2 GFR, Est., If >80.0 >60 [facility] Black ml/min/1.7 3m2 Specimen Anatomical Collection Method Collection Time Receive d Time (Source) Location / / Volume Laterality 02/25/2005 2:35 PM 5 2:36 CDT PM CDT Alisha Kimball MD LAB_1 Performing Organization Address [facility] Phon e Number [facility] [employer] [phone] [facility] [address] [phone] CHLORIDE (02/25/2005 2:35 PM CDT) P athologist Signature Chloride 104 95 - 105 [facility] mmol/L Specimen Anatomical Collection Method Collection Time Receive d Time (Source) Location / / Volume Laterality 02/25/2005 2:35 PM 5 2:36 CDT PM CDT Alisha Kimball MD LAB_1 Performing Organization Address [facility] Phon e Number [facility] [employer] [phone] [facility] [address] [place] [phone] CALCIUM (02/25/2005 2:35 PM CDT) athologist Signature Calcium 9.5 8.2 - 10.0 [facility] mg/dl Specimen Anatomical Collection Method Collection Time Receive d Time (Source) Location / / Volume Laterality 02/25/2005 2:35 PM 5 2:36 CDT PM CDT Alisha Kimball MD LAB_1 Performing Organization Address [facility] Phon e Number [facility] [phone] [facility] [address] [place] [phone] BUN (02/25/2005 2:35 PM CDT) athologist Signature BUN 17 10 - 26 [facility] mg/dl Specimen Anatomical Collection Method Collection Time Receive d Time (Source) Location / / Volume Laterality 02/25/2005 2:35 PM 5 2:36 CDT PM CDT Alisha Kimball MD LAB_1 Performing Organization Address [facility] Phon e Number [facility] [employer] [phone] [facility] [address] [place] [phone] ALT (SGPT) (02/25/2005 2:35 PM CDT) athologist Signature ALT (SGPT) 34 0 - 55 U/L [facility] Specimen Anatomical Collection Method Collection Time Receive d Time (Source) Location / / Volume Laterality 02/25/2005 2:35 PM 5 2:36 CDT PM CDT Alisha Kimball MD LAB_1 Performing Organization Address [facility] Phon e Number [facility] [employer] [phone] [phone] AST (02/25/2005 2:35 PM CDT) athologist Signature AST (SGOT) 16 <45 U/L [facility] Specimen Anatomical Collection Method Collection Time Receive d Time (Source) Location / / Volume Laterality 02/25/2005 2:35 PM 5 2:36 CDT PM CDT Alisha Kimball MD LAB_1 Performing Organization Address [facility] Phon e Number [employer] [phone] [phone] URINE CULTURE IF (02/25/2005 1:40 PM CDT) [facility] Method Time Signature Urine Cult If UC Not [facility] Indicated Specimen Anatomical Collection Method Collection Time Receive d Time (Source) Location / / Volume Laterality 02/25/2005 1:40 PM 5 1:41 CDT PM CDT Alisha Kimball MD LAB_1 Performing Organization Address [facility] Phon e Number [facility] [employer] [phone] [phone] UA MICRO IF (02/25/2005 1:40 PM CDT) [facility] gist Method Time Signature Appr Yellow [facility] [...] Address City/State/ZIP Code Phon e Number [facility] [phone] [facility] [address] [phone] documented in this encounter Visit Diagnoses Diagnosis Urinary frequency Elevated blood pressure reading without diagnosis of hypertension documented in this encounter Care Teams Yarn Mercerizer Operator Relationship Specialty Start Date End Date Miky Sultana MD PCP - General 09/21/01 07/07/[address] [place] [address] [place] [address] documented as of this encounter
--- OUTSIDE RECORDS SUMMARY | 2022-05-29 13:39 | XMS_ITS | Encounter Summary ---
:1955 Author Organization [facility] Address [address], [place] [address] Care Team Providers Name Role Phone Luis Pierce MD Primary Care Provider Unavailable Encounter Details Date Type Department Care Team Description 11/22/2000 Orders Only [facility] Miky Salinas MD [address] [place] [address] [place] [address] (Wo rk) Social History Tobacco Use Types Packs/Day Years Used Date Smoking Tobacco: Never Assessed Sex Assigned at Date Recorded Not on file documented as of this encounter Plan of Treatment Upcoming Encounters Date Type Specialty Care Team Description 06/09/2022 Appointment General Dentistry Elaine Garcia, [facility] [address] [place] [address] (Wo rk) documented as of this encounter Visit Diagnoses Not on filedocumented in this encounter Care Teams Meter Maintenance Person Relationship Specialty Start Date End Date Luis Pierce MD PCP - General 05/27/1998 documented as of this encounter
--- OUTSIDE RECORDS SUMMARY | 2022-05-29 13:39 | XMS_ITS | Encounter Summary ---
:1955 Author Organization [facility] Address [address] [address] Care Team Providers Name Role Phone Miky Sultana MD Primary Care Provider Encounter Details Date Type Department Care Team Description 12/01/2002 Office Visit [facility] Juan Daniel, EYE & VISION EXAMINATION; [address] [place]; [place] [address] [place] [phone] [place], [place] [address] Social History Tobacco Use [...] Appointment General Dentistry Elaine Garcia, [facility] [address] [place], [place] [phone] (Wo rk) documented as of this encounter Visit Diagnoses Diagnosis Examination of eyes and vision Myopia Presbyopia documented in this encounter Care Teams Harbor Tug Captain Relationship Specialty Start Date End Date Miky Sultana MD PCP - General 09/21/01 07/07/05 [address] [facility] [place] [address] documented as of this encounter
--- OUTSIDE RECORDS SUMMARY | 2022-05-29 13:39 | XMS_ITS | Encounter Summary ---
:1955 Author Organization [facility] Address [address], [place] [address] Care Team Providers Name Role Phone Luis Pierce MD Primary Care Provider Unavailable Encounter Details Date Type Department Care Team Description 08/09/2001 Orders Only [facility] Prac Miky Salinas MD [address] [place] [address] [place] [address] (Wo rk) Social History Tobacco Use Types Packs/Day Years Used Date Smoking Tobacco: Never Assessed Sex Assigned at Date Recorded Not on file documented as of this encounter Plan of Treatment Upcoming Encounters Date Type Specialty Care Team Description 06/09/2022 Appointment General Dentistry Elaine Garcia, [facility] [address] [place] [address] (Wo rk) documented as of this encounter Visit Diagnoses Not on filedocumented in this encounter Care Teams Wire Wrapper Machine Operator Relationship Specialty Start Date End Date Luis Pierce MD PCP - General 05/27/1998 documented as of this encounter
--- OUTSIDE RECORDS SUMMARY | 2022-05-29 13:39 | XMS_ITS | Encounter Summary ---
:1955 Author Organization [facility] Address [address] [place] [address] Care Team Providers Name Role Phone Luis Pierce MD Primary Care Provider Unavailable Encounter Details Date Type Department Care Team Description 08/18/2001 Office Visit [facility] Hiram Romero MD CONJUNCTIVITIS NOS [address] [place] [address] [place], [place] [phone] [address] Social History Tobacco Use Types Packs/Day Years [...] can follow-up. IN SUMMARY: eye symptoms cc: TEACHER documented in this encounter Plan of Treatment Upcoming Encounters Date Type Specialty Care Team Description 06/09/2022 Appointment General Dentistry Elaine Garcia, [facility] [address] [place] [address] (Wo rk) documented as of this encounter Visit Diagnoses Diagnosis Conjunctivitis unspecified Conjunctivitis, unspecified documented in this encounter Care Teams Us Marketing Director Relationship Specialty Start Date End Date Luis Pierce MD PCP - General 05/27/1998 documented as of this encounter
--- OUTSIDE RECORDS SUMMARY | 2022-05-29 13:39 | XMS_ITS | Encounter Summary ---
:1955 Author Organization [facility] Address [address] [address] Care Team Providers Name Role Phone Luis Pierce MD Primary Care Provider Unavailable Encounter Details Date Type Department Care Team Description 02/22/2001 Office Visit [facility] Miky Sultana MD CHONDROMALACIA PATELLAE Practice [address] [facility] [address] [place] [address] [place] [address] Social History Tobacco Use Types Packs/Day Years [...] Dentistry Elaine Garcia, [facility] [address] [place] [address] (Wo rk) documented as of this encounter Visit Diagnoses Diagnosis Chondromalacia of patella documented in this encounter Care Teams Mandrel Cleaner Relationship Specialty Start Date End Date Luis Pierce MD PCP - General 05/27/1998 documented as of this encounter
--- OUTSIDE RECORDS SUMMARY | 2022-05-29 13:39 | XMS_ITS | Encounter Summary ---
:1955 Author Organization [employer] Address [address] [place] [address] Care Team Providers Name Role Phone Luis Pierce MD Primary Care Provider Unavailable Reason for Visit Reason Comments BACK PAIN VIA INTERFACE Encounter Details Date Type Department Care Team Description 05/03/2000 Orders Only [facility] Michele urtyler LOW BACK PAIN(ACUTE)<6 WEEKS ; [address] [place] [address] Social History Tobacco Use Types [...] normal. IN SUMMARY: ATYPICAL BACK PAIN cc: PROCESSING CLERK documented in this encounter Plan of Treatment Upcoming Encounters Date Type Specialty Care Team Description 06/09/2022 Appointment General Dentistry Elaine Garcia, [facility] [address] [place] [address] (Wo rk) documented as of this encounter Visit Diagnoses Diagnosis Lumbago Laboratory examination documented in this encounter Care Teams Supervisor Pig Machine Relationship Specialty Start Date End Date Luis Pierce MD PCP - General 05/27/1998 documented as of this encounter
--- OUTSIDE RECORDS SUMMARY | 2022-05-29 13:39 | XMS_ITS | Encounter Summary ---
:1955 Author Organization [facility] Address [address] [address] Care Team Providers Name Role Phone Miky [...] General Dentistry Elaine Garcia, [facility] [address] [place] [address] (Wo rk) documented as of this encounter Visit Diagnoses Not on filedocumented in this encounter Care Teams Hot Plate Plywood Press Offbearer Relationship Specialty Start Date End Date Miky Sultana MD PCP - General 09/21/01 07/07/05 [address] [place] [address] documented as of this encounter
--- OUTSIDE RECORDS SUMMARY | 2022-05-29 13:39 | XMS_ITS | Encounter Summary ---
:1955 Author Organization [employer] Address [address] [place] [address] Care Team Providers Name Role Phone Luis Pierce MD Primary Care Provider Unavailable Encounter Details Date Type Department Care Team Description 08/02/2001 Office Visit [facility] Michele ury OTALGIA NOS; [address] ACUTE PHARYNGITIS(SORE THROA T); [place] [address] LABORATORY EXAMINATION [phone] Social History Tobacco Use Types Packs/Day Years [...] ASSESSMENT: Otalgia, viral. Acute pharyngitis, viral. PLAN: Visx-ijj-eitaspj decongestant. IN SUMMARY: ACUTE PHARYNGITIS, OTALGIA cc: STATION MANAGER documented in this encounter Plan of Treatment Upcoming Encounters Date Type Specialty Care Team Description 06/09/2022 Appointment General Dentistry Elaine Garcia, [facility] [address] [place] [address] (Wo rk) documented as of this encounter Visit Diagnoses Diagnosis Otalgia, unspecified Acute pharyngitis Laboratory examination documented in this encounter Care Teams Answerer Relationship Specialty Start Date End Date Luis Pierce MD PCP - General 05/27/1998 documented as of this encounter
--- OUTSIDE RECORDS SUMMARY | 2022-05-29 13:39 | XMS_ITS | Encounter Summary ---
:1955 Author Organization [facility] Address [address], [place] [address] Care Team Providers Name Role Phone Miky Sultana MD Primary Care Provider Reason for Referral Specialty Diagnoses / Procedures Referred By Contact Refer red To Contact Miky Sultana MD [address] [place] [address] Referral ID Status Reason Start Date Expiration Date Visits Requ ested Visits Authorized ZER PERSON Reason for Visit Reason Comments COUGH CONSTIPATION with bloating Encounter Details Date Type Department Care Team Description 06/17/2005 Office Visit [facility] Miky Sultana MD CONSTIPATION NOS Practice [address] [facility] (Primary Dx) [address] [place] [address] [place] [address] [phone] Social History Tobacco Use Types Packs/Day Years Used Date Smoking Tobacco: Never Alcohol Use Standard Drinks/Week Comments Not Asked 0 (1 standard drink = 0.6 oz pure alcoho l) Sex Assigned at Date Recorded Not on file documented as of this encounter Last Filed Vital Signs Vital Sign Reading Time Taken Comments Blood Pressure 122/64 06/17/2005 9:23 AM FREEZER PERSON Pulse 78 06/17/2005 9:23 AM FREEZER PERSON Temperature 36.9 ??C (98.4 ??F) 06/17/2005 9:23 AM FREEZER PERSON Respiratory Rate 26 06/17/2005 9:23 AM FREEZER PERSON Oxygen Saturation - - Inhaled Oxygen Concentration - - Weight 84.5 kg (186 lb 3.2 oz) 06/17/2005 9:23 AM FREEZER PERSON Height - - Body Mass Index - - documented in this encounter Progress Notes 06/17/2005 9:20 AM FREEZER PERSON This office note has been dictated. MD [...] including a trial of Metamucil. P cc: ZER PERSON documented in this encounter Plan of Treatment Upcoming Encounters Date Type Specialty Care Team Description 06/09/2022 Appointment General Dentistry Elaine Garcia, [facility] [address] [place] [address] (Wo rk) Scheduled Referrals Name Type Priority Associated Diagnoses Order S chedule COLONOSCOPY-DIAGNOSTIC Referral Routine Constipation Nos O rdered: 06/17/2005 documented as of this encounter Visit Diagnoses Diagnosis Unspecified constipation - Primary documented in this encounter Care Teams Clinical Operations Consultant Relationship Specialty Start Date End Date Miky Sultana MD PCP - General 09/21/01 07/07/05 [address] [place] [address] documented as of this encounter
--- OUTSIDE RECORDS SUMMARY | 2022-05-29 13:40 | XMS_ITS | Encounter Summary ---
:1955 Author Organization [facility] Address [address] [place] [address] Care Team Providers Name Role Phone Luis [...] [facility] [address] [place] [address] (Wo rk) documented as of this encounter Procedures Procedure Name Priority Date/Time Associated Diagnosis Comme nts HEMOGLOBIN, BLOOD Routine 09/30/1998 11:03 AM Res ults for this PATCHER HELPER procedure are i n the results section. documented in this encounter Results (ABNORMAL) HEMOGLOBIN, BLOOD (09/30/1998 11:03 AM PATCHER HELPER) [facility] Method Time Signature Hemoglobin 11.9 (L) 12.0 - [facility] 16.0 g/dl Hemoglobin Result [facility] Checked Specimen Anatomical Collection Method Collection Time Receive d Time (Source) Location / / Volume Laterality 09/30/1998 11:03 09/30/1998 AM PATCHER HELPER 11:04 AM PATCHER HELPER Luis Pierce MD LAB_1 Performing Organization Address City/State/ZIP Code Phon e Number [facility] [phone] [facility] [address] [address] documented in this encounter Visit Diagnoses Not on filedocumented in this encounter Care Teams Clip Bolter And Wrapper Relationship Specialty Start Date End Date Luis Pierce MD PCP - General 05/27/1998 documented as of this encounter
--- OUTSIDE RECORDS SUMMARY | 2022-05-29 13:40 | XMS_ITS | Encounter Summary ---
:1955 Author Organization [employer] Address [address] [place] [address] Care Team Providers Name Role Phone Luis Pierce MD Primary Care Provider Unavailable Encounter Details Date Type Department Care Team Description 12/17/1998 Office Visit Hafsa Lei, LINE RIDER, BUTTON STATION WORKER [address] [place], [place] [address] (Wo rk) Social History [...] Dentistry Elaine Garcia, [facility] [address] [place] [address] (Wo rk) documented as of this encounter Visit Diagnoses Not on filedocumented in this encounter Care Teams Lead Worker Of Housekeeping And Laundry Relationship Specialty Start Date End Date Luis Pierce MD PCP - General 05/27/1998 documented as of this encounter
--- OUTSIDE RECORDS SUMMARY | 2022-05-29 13:40 | XMS_ITS | Encounter Summary ---
:1955 Author Organization [facility] Address [address] [place] [address] Care Team Providers Name Role Phone Luis [...] Dentistry Elaine Garcia, [facility] [address] [place] [address] (Wo rk) documented as of this encounter Procedures Procedure Name Priority Date/Time Associated Diagnosis Comme nts HEMOGLOBIN, BLOOD Waiting 08/19/1998 9:37 AM Resu lts for this ACCOUNTING ASSISTANT procedure are i n the results section. PHONED RESULTS Routine 08/19/1998 9:37 AM Results for this ACCOUNTING ASSISTANT procedure are i n the results section. documented in this encounter Results PHONED RESULTS (08/19/1998 9:37 AM ACCOUNTING ASSISTANT) [facility] gist Method Time Signature Phoned HGB called to Meaghan Guerrero ([place] OB) at [employer] Results [id number] on [id number] Specimen Anatomical Collection Method Collection Time Receive d Time (Source) Location / / Volume Laterality 08/19/1998 9:37 AM 9 9:38 ACCOUNTING ASSISTANT AM ACCOUNTING ASSISTANT Luis Pierce MD LAB_1 Performing Organization Address City/State/ZIP Code Phon e Number [facility] [phone] [phone] (ABNORMAL) HEMOGLOBIN, BLOOD (08/19/1998 9:37 AM ACCOUNTING ASSISTANT) [facility] Method Time Signature Hemoglobin 7.7 (L) 12.0 - [facility] 16.0 g/dl Hemoglobin Result [facility] Checked Specimen Anatomical Collection Method Collection Time Receive d Time (Source) Location / / Volume Laterality 08/19/1998 9:37 AM 9:38 ACCOUNTING ASSISTANT AM ACCOUNTING ASSISTANT Luis Pierce MD LAB_1 Performing Organization Address City/State/ZIP Code Phon e Number [facility] [phone] [address] documented in this encounter Visit Diagnoses Not on filedocumented in this encounter Care Teams Shift Coordinator Relationship Specialty Start Date End Date Luis Pierce MD PCP - General 05/27/1998 documented as of this encounter
--- OUTSIDE RECORDS SUMMARY | 2022-05-29 13:40 | XMS_ITS | Encounter Summary ---
:1955 Author Organization [facility] Address [address] [place] [address] Care Team Providers Name Role Phone Luis Pierce MD Primary Care Provider Unavailable Encounter Details Date Type Department Care Team Description 09/01/1998 Office Visit Francisco Gupta MD [address] [place], [place] [address] (Wo rk) Social History [...] of pyelonephritis, follow up as needed. cc: [employer] documented in this encounter Plan of Treatment Upcoming Encounters Date Type Specialty Care Team Description 06/09/2022 Appointment General Dentistry Elaine Garcia, [facility] [address] [place] [address] (Wo rk) documented as of this encounter Visit Diagnoses Not on filedocumented in this encounter Care Teams Hide And Skin Classer Relationship Specialty Start Date End Date Luis Pierce MD PCP - General 05/27/1998 documented as of this encounter
--- OUTSIDE RECORDS SUMMARY | 2022-05-29 13:40 | XMS_ITS | Encounter Summary ---
:1955 Author Organization [facility] Address [address] [place] [address] Care Team Providers Name Role Phone Luis Pierce MD Primary Care Provider Unavailable Encounter Details Date Type Department Care Team Description 09/30/1998 Office Visit [facility] Pierce rt SURGERY FOLLOW-UP Gynecology MD Cristina [address] [place] [address] Social History Tobacco Use Types [...] earlier on a as needed basis. cc: UCT TEST SPECIALIST documented in this encounter Plan of Treatment Upcoming Encounters Date Type Specialty Care Team Description 06/09/2022 Appointment General Dentistry Elaine Garcia, [facility] [address] [place] [address] (Wo rk) documented as of this encounter Visit Diagnoses Diagnosis Follow-up examination following surgery documented in this encounter Care Teams Project Geophysicist Relationship Specialty Start Date End Date Luis Pierce MD PCP - General 05/27/1998 documented as of this encounter
--- OUTSIDE RECORDS SUMMARY | 2022-05-29 13:40 | XMS_ITS | Encounter Summary ---
:1955 Author Organization [facility] Address [address], [place] [address] Care Team Providers Name Role Phone Luis Pierce MD Primary Care Provider Unavailable Reason for Visit Reason Comments COUGH VIA INTERFACE Encounter Details Date Type Department Care Team Description 08/27/1999 Office Visit [facility] Miky Salinas MD BRONCHITIS NOS [address] [place] [address] [place] [address] (Wo rk) Social History Tobacco Use Types [...] no improvement into early next week. cc: INCISOR OPERATOR documented in this encounter Plan of Treatment Upcoming Encounters Date Type Specialty Care Team Description 06/09/2022 Appointment General Dentistry Elaine Gracia, [facility] [address] [place] [address] (Wo rk) documented as of this encounter Visit Diagnoses Diagnosis Bronchitis, not specified as acute or ch ronic documented in this encounter Care Teams Electronic Tech Relationship Specialty Start Date End Date Luis Pierce MD PCP - General 05/27/1998 documented as of this encounter
--- OUTSIDE RECORDS SUMMARY | 2022-05-29 13:40 | XMS_ITS | Encounter Summary ---
:1955 Author Organization [facility] Address [address] [place] [address] Care Team Providers Name Role Phone Luis Pierce MD Primary Care Provider Unavailable Encounter Details Date Type Department Care Team Description 09/03/1998 Office Visit Deepthi Ashraf M D [address] [place] [address] (Wo rk) Social History Tobacco Use Types Packs/Day Years Used Date Smoking Tobacco: Never Assessed Sex Assigned at Date Recorded Not on file documented as of this encounter Progress Notes Deepthi Ashraf - 09/03/1998 12:00 AM CSTS. [age] year old woman here because of a rash on her legs. This has been for the last two days. It started on her thighs and it has been very itchy. It has now spread up to her abdomen with itchiness on her back and her arms although she has noticed no rash in those areas yet. She is also noticing a rash on the lower part of her legs. This becomes more red if she scratches it. No recent medications, apart from Macrobid that she started for a urinary tract infection later in the day after this rash had already begun. She is quite clear that she already had the rash before she began the medicine. She has been using Gold Wan and over the counter anti-itch cream since the rash began,but was also using it frequently before the rash began for diffuse skin itchiness and dry skin. She is allergic to Sulfa. She had a somewhat similar rash after childbirth 18 years ago which resolved without diagnosis, otherwise she has not had a rash like this. O. Temperature 96.9, Pulse 76, Respiratory Rate is 20. BP 130/80, appears comfortable. There is an erythematous macular rash on both of her thighs that does lenore, macules about l/2 to l centimeter in diameter. Along with a more reticular pattern, lower down on the thighs and on the lower legs. There is a slight erythema to her mid back area where she is having some itching, but no particular rash. There is a slight erythema to the lower abdomen. No rash on the upper trunk or arms seen. A. Rash, Suspect an allergic dermatitis. P. Possibilities for insetting agents would include the Gold Wan Lotion that she had been using so frequently as well as possible new sheets that had been placed on the bed. Although they had been washed first. She does deny any new laundry detergent, soaps, etc. She will change the sheets, stop the Gold Wan, and start using Atarax 25 mg. 4 x daily and may also use Triamcinolone Cream to the worst spots on her thighs twice daily. Recheck if not improving within the next week. IN SUMMARY: RASH THA WASHING SYSTEM OPERATOR documented in this encounter Plan of Treatment Upcoming Encounters Date Type Specialty Care Team Description 06/09/2022 Appointment General Dentistry Elaine Garcia, [address] [place] [address] (Wo rk) documented as of this encounter Visit Diagnoses Not on filedocumented in this encounter Care Teams Estate Planning Paralegal Relationship Specialty Start Date End Date Luis Pierce MD PCP - General 05/27/1998 documented as of this encounter
--- OUTSIDE RECORDS SUMMARY | 2022-05-29 13:40 | XMS_ITS | Encounter Summary ---
:1955 Author Organization [employer] Address [address] [place] [address] Care Team Providers Name Role Phone Luis Pierce MD Primary Care Provider Unavailable Encounter Details Date Type Department Care Team Description 08/22/1998 Other Services Indra Willams MD [facility] [address] Social History Tobacco Use Types Packs/Day Years Used Date Smoking Tobacco: Never Assessed Sex Assigned at Date Recorded Not on file documented as of this encounter Plan of Treatment Upcoming Encounters Date Type Specialty Care Team Description 06/09/2022 Appointment General Dentistry Elaine Garcia, [facility] [address] [place], [place] [address] (Wo rk) documented as of this encounter Visit Diagnoses Diagnosis Excessive or frequent menstruation Dysplasia of cervix (uteri) Cervicitis and endocervicitis documented in this encounter Care Teams Prop Maker Relationship Specialty Start Date End Date Luis Pierce MD PCP - General 05/27/1998 documented as of this encounter
--- OUTSIDE RECORDS SUMMARY | 2022-05-29 13:40 | XMS_ITS | Encounter Summary ---
:1955 Author Organization [facility] Address [address] [place] [address] Care Team Providers Name Role Phone Alisha Kimball MD Primary Care Provider Encounter Details Date Type Department Care Team Description 12/12/1998 Orders Only So Li MD [address] [place], [place] [address] (Wo rk) Social History Tobacco Use Types Packs/Day Years Used Date Smoking Tobacco: Never Assessed Sex Assigned at Date Recorded Not on file documented as of this encounter Plan of Treatment Upcoming Encounters Date Type Specialty Care Team Description 06/09/2022 Appointment General Dentistry Elaine Garcia, [facility] [address] [place] [address] (Wo rk) documented as of this encounter Visit Diagnoses Not on filedocumented in this encounter Care Teams It Intern Relationship Specialty Start Date End Date Alisha Kimball MD PCP - General 07/08/05 [address], [place] [address] documented as of this encounter
--- OUTSIDE RECORDS SUMMARY | 2022-05-29 13:40 | XMS_ITS | Encounter Summary ---
:1955 Author Organization [facility] Address [address] [place] [address] Care Team Providers Name Role Phone Luis Pierce MD Primary Care Provider Unavailable Encounter Details Date Type Department Care Team Description 08/30/1998 Office Visit Francisco Gupta MD UTI [address] [place], [place] [address] (Wo rk) Social History Tobacco Use Types Packs/Day Years Used Date Smoking Tobacco: Never Assessed Sex Assigned at Date Recorded Not on file documented as of this encounter Plan of Treatment Upcoming Encounters Date Type Specialty Care Team Description 06/09/2022 Appointment General Dentistry Elaine Garcia, [facility] [address] [place], [place] [id number] (Wo rk) documented as of this encounter Visit Diagnoses Diagnosis Urinary tract infection, site not specif ied documented in this encounter Care Teams Photocomposition Keyboard Operator Relationship Specialty Start Date End Date Luis Pierce MD PCP - General 05/27/1998 documented as of this encounter
--- OUTSIDE RECORDS SUMMARY | 2022-05-29 13:40 | XMS_ITS | Encounter Summary ---
:1955 Author Organization [facility] Address [address] [place] [address] Care Team Providers Name Role Phone Luis Pierce MD Primary Care Provider Unavailable Encounter Details Date Type Department Care Team Description 09/18/1998 Orders Only Francisco Gupta MD [address] [place], [place] [address] (Wo rk) Social History Tobacco Use Types Packs/Day Years Used Date Smoking Tobacco: Never Assessed Sex Assigned at Date Recorded Not on file documented as of this encounter Plan of Treatment Upcoming Encounters Date Type Specialty Care Team Description 06/09/2022 Appointment General Dentistry Elaine Garcia, [facility] [address] [place], [place] [phone] (Wo rk) documented as of this encounter Procedures Procedure Name Priority Date/Time Associated Diagnosis Comme nts UA WITH MICRO Routine 09/18/1998 4:33 PM Results for this PORTABLE SAWYER procedure are i n the results section . documented in this encounter Results UA WITH MICRO (09/18/1998 4:33 PM PORTABLE SAWYER) P athologist Signature Appr Yellow [facility] Appr [...] [facility] Epith, Occ [facility] Squamous Bact 0 [facility] Casts 0 /lpf [facility] Specimen Anatomical Collection Method Collection Time Receive d Time (Source) Location / / Volume Laterality 09/18/1998 4:33 PM 9 4:34 PORTABLE SAWYER PM PORTABLE SAWYER Francisco Gupta MD LAB_1 Performing Organization Address City/State/[facility] Code Phon e Number [facility] [phone] [facility] [address] [address] documented in this encounter Visit Diagnoses Not on filedocumented in this encounter Care Teams Hog Feeder Relationship Specialty Start Date End Date Luis Pierce MD PCP - General 05/27/1998 documented as of this encounter
--- OUTSIDE RECORDS SUMMARY | 2022-05-29 13:40 | XMS_ITS | Encounter Summary ---
:1955 Author Organization [facility] Address [address] [place] [address] Care Team Providers Name Role Phone Alisha [...] Dentistry Elaine Garcia, [facility] [address] [place] [address] (Wo rk) documented as of this encounter Visit Diagnoses Not on filedocumented in this encounter Care Teams Hair Worker Relationship Specialty Start Date End Date Alisha Kimball MD PCP - General 07/08/[address] [place], [place] [phone] documented as of this encounter
--- OUTSIDE RECORDS SUMMARY | 2022-05-29 13:40 | XMS_ITS | Encounter Summary ---
:1955 Author Organization [facility] Address [address] [place] [address] Care Team Providers Name Role Phone Luis Pierce MD Primary Care Provider Unavailable Encounter Details Date Type Department Care Team Description 08/19/1998 Office Visit [place] [facility] and Regan Pierce rt SURGERY FOLLOW-UP Gynecology MD Cristina [address] [place] [address] Social History Tobacco Use Types Packs/Day Years Used Date Smoking Tobacco: Never Assessed Sex Assigned at Date Recorded Not on file documented as of this encounter Progress Notes Luis Pierce - 08/19/1998 12:00 AM COMPONENT PREP OPERATOR Pt is a 43-year-old para 3004 who [...] see pre-operative evaluation for further details. cc: ONENT PREP OPERATOR documented in this encounter Plan of Treatment Upcoming Encounters Date Type Specialty Care Team Description 06/09/2022 Appointment General Dentistry Elaine Garcia, [facility] [address] [place] [address] (Wo rk) documented as of this encounter Visit Diagnoses Diagnosis Follow-up examination following surgery documented in this encounter Care Teams Boilers Inspector Relationship Specialty Start Date End Date Luis Pierce MD PCP - General 05/27/1998 documented as of this encounter
--- OUTSIDE RECORDS SUMMARY | 2022-05-29 13:40 | XMS_ITS | Encounter Summary ---
:1955 Author Organization [facility] Address [address] [place] [address] Care Team Providers Name Role Phone Luis Pierce MD Primary Care Provider Unavailable Encounter Details Date Type Department Care Team Description 08/22/1998 Other Services Dar Haas MD [address] [facility] [address] (Wo rk) Social History Tobacco Use Types Packs/Day Years Used Date Smoking Tobacco: Never Assessed Sex Assigned at Date Recorded Not on file documented as of this encounter Plan of Treatment Upcoming Encounters Date Type Specialty Care Team Description 06/09/2022 Appointment General Dentistry Elaine Garcia, [facility] [address] [place], [place] [phone] (Wo rk) documented as of this encounter Visit Diagnoses Diagnosis Excessive or frequent menstruation documented in this encounter Care Teams Guest Service Supervisor Relationship Specialty Start Date End Date Luis Pierce MD PCP - General 05/27/1998 documented as of this encounter
--- OUTSIDE RECORDS SUMMARY | 2022-05-29 13:40 | XMS_ITS | Encounter Summary ---
:1955 Author Organization [facility] Address [address] [place] [address] Care Team Providers Name Role Phone Luis Pierce MD Primary Care Provider Unavailable Encounter Details Date Type Department Care Team Description 08/30/1998 Orders Only Social History Tobacco Use Types Packs/Day Years Used Date Smoking Tobacco: Never Assessed Sex Assigned at Date Recorded Not on file documented as of this encounter Plan of Treatment Upcoming Encounters Date Type Specialty Care Team Description 06/09/2022 Appointment General Dentistry Elaine Garcia, [facility] [address] [place], [place] [phone] (Wo rk) documented as of this encounter Procedures Procedure Name Priority Date/Time Associated Diagnosis Comme nts UA WITH MICRO Waiting 08/30/1998 8:22 PM Results for this CONCRETE JOURNEYMAN procedure are i n the results section . documented in this encounter Results UA WITH MICRO (08/30/1998 8:22 PM CONCRETE JOURNEYMAN) P athologist Signature Appr Yellow [facility] Appr Hazy [facility] Sp Gr 1.011 1.005 - [facility] 1.030 Leuk Pos 0 [facility] Nitr 0 0 [facility] pH 5.0 4.5 - 8.0 [facility] Prot Tr 0 mg/dl [facility] Gluc 0 0 g/dl [facility] Ket 0 0 [facility] Urob 0.1-1 0.1 - 1 [facility] mg/dl Bili 0 0 [facility] Blood Lrg 0 [facility] RBC'S 10-20 0 - 3 /hpf [facility] WBC'S 6-10 0 - 5 /hpf [facility] Epith, Few [facility] Squamous Bact Occ [facility] Casts 0 /lpf [facility] Specimen Anatomical Collection Method Collection Time Receive d Time (Source) Location / / Volume Laterality 08/30/1998 8:22 PM 9 8:23 CONCRETE JOURNEYMAN PM CONCRETE JOURNEYMAN Im Trauma [facility] LAB_1 Performing Organization Address City/State/ZIP Code Phon e Number [facility] [phone] [facility] [address] [address] documented in this encounter Visit Diagnoses Not on filedocumented in this encounter Care Teams Denture Processor Relationship Specialty Start Date End Date Luis Pierce MD PCP - General 05/27/1998 documented as of this encounter
--- OUTSIDE RECORDS SUMMARY | 2022-05-29 13:40 | XMS_ITS | Encounter Summary ---
:1955 Author Organization [facility] Address [address] [place] [address] Care Team Providers Name Role Phone Luis Pierce MD Primary Care Provider Unavailable Encounter Details Date Type Department Care Team Description 12/17/1998 Orders Only Hafsa Lei A, STITCH SEPARATOR, AIRCRAFT REFUELER [address] [place], [place] [address] (Wo rk) Social History Tobacco Use Types Packs/Day Years Used Date Smoking Tobacco: Never Assessed Sex Assigned at Date Recorded Not on file documented as of this encounter Plan of Treatment Upcoming Encounters Date Type Specialty Care Team Description 06/09/2022 Appointment General Dentistry Elaine Garcia, [facility] [address] [place], [place] [phone] (Wo rk) documented as of this encounter Procedures Procedure Name Priority Date/Time Associated Diagnosis Comme nts UA WITH MICRO Waiting 12/17/1998 4:36 PM Results for this CDT procedure are i n the results section . documented in this encounter Results UA WITH MICRO (12/17/1998 4:36 PM CDT) P athologist Signature Appr Yellow [facility] Appr [...] 9 4:37 CDT PM CDT Emily Lei STITCH SEPARATOR, AIRCRAFT REFUELER LAB_1 Performing Organization Address City/State/ZIP Code Phon e Number [facility] [place] [place] [facility] [phone] [facility] [address] [address] documented in this encounter Visit Diagnoses Not on filedocumented in this encounter Care Teams Testing Analyst Relationship Specialty Start Date End Date Luis Pierce MD PCP - General 05/27/1998 documented as of this encounter
--- OUTSIDE RECORDS SUMMARY | 2022-05-29 13:40 | XMS_ITS | Encounter Summary ---
:1955 Author Organization [facility] Address [address] [place] [address] Care Team Providers Name Role Phone Alisha [...] Elaine Garcia, [facility] [address] [place] [address] (Wo rk) documented as of this encounter Visit Diagnoses Not on filedocumented in this encounter Care Teams Commercial Loan Assistant Relationship Specialty Start Date End Date Alisha Kimball MD PCP - General 07/08/[address] [place], [place] [phone] documented as of this encounter
--- OUTSIDE RECORDS SUMMARY | 2022-05-29 13:40 | XMS_ITS | Encounter Summary ---
:1955 Author Organization [facility] Address [address] [place] [address] Care Team Providers Name Role Phone Luis Pierce MD Primary Care Provider Unavailable Encounter Details Date Type Department Care Team Description 12/12/1998 Office Visit Luis Lozano MD [address] [place] [address] (Wo rk) Social History Tobacco [...] Elaine Garcia, [facility] [address] [place] [address] (Wo rk) documented as of this encounter Visit Diagnoses Not on filedocumented in this encounter Care Teams Clinic Mgr Relationship Specialty Start Date End Date Luis Pierce MD PCP - General 05/27/1998 documented as of this encounter
--- OUTSIDE RECORDS SUMMARY | 2022-05-29 13:40 | XMS_ITS | Encounter Summary ---
:1955 [address] [facility] Address [address] [place] [address] Care Team Providers Name Role Phone Luis [...] [facility] [address] [place], [place] [phone] (Wo rk) documented as of this encounter Visit Diagnoses Diagnosis Excessive or frequent menstruation Female stress incontinence Other and unspecified ovarian cyst documented in this encounter Care Teams Claim Specialist Relationship Specialty Start Date End Date Luis Pierce MD PCP - General 05/27/1998 documented as of this encounter
--- OUTSIDE RECORDS SUMMARY | 2022-05-29 13:40 | XMS_ITS | Encounter Summary ---
:1955 Author Organization [facility] Address [address] [place] [address] Care Team Providers Name Role Phone Luis Pierce MD Primary Care Provider Unavailable Encounter Details Date Type Department Care Team Description 12/12/1998 Orders Only Epic, [place] [address] Social History Tobacco Use Types Packs/Day Years Used Date Smoking Tobacco: Never Assessed Sex Assigned at Date Recorded Not on file documented as of this encounter Plan of Treatment Upcoming Encounters Date Type Specialty Care Team Description 06/09/2022 Appointment General Dentistry Elaine Garcia, [facility] [address] [place] [address] (Wo rk) documented as of this encounter Procedures Procedure Name Priority Date/Time Associated Diagnosis Comme nts URINE CULTURE Routine 12/12/1998 7:06 PM Results for this CDT procedure are i n the results section . documented in this encounter Results URINE CULTURE (MIDSTREAM) (12/12/1998 7:06 PM CDT) [facility] Method Time Signature Specimen Urine [facility] Description Special None [facility] Requests Culture No Growth [facility] After 1 Day Report Status Final [facility] Report Status [id number] [facility] Specimen Anatomical Collection Method Collection Time Receive d Time (Source) Location / / Volume Laterality 12/12/1998 7:06 PM 9 7:07 CDT PM CDT Narrative [facility] - 12/12/1998 7:06 PM CDT Ordered by [facility] Internal Processing Epic LAB_1 Performing Organization Address City/State/ZIP Code Phon e Number [facility] [phone] [facility] [address] [address] documented in this encounter Visit Diagnoses Not on filedocumented in this encounter Care Teams System Support Specialist Relationship Specialty Start Date End Date Luis Pierce MD PCP - General 05/27/1998 documented as of this encounter
--- OUTSIDE RECORDS SUMMARY | 2022-05-29 13:40 | XMS_ITS | Encounter Summary ---
:1955 Author Organization [employer] Address [address] [place] [address] Care Team Providers Name Role Phone Luis Pierce MD Primary Care Provider Unavailable Encounter Details Date Type Department Care Team Description 12/30/1998 Office Visit [place] Emily Lei, [facility] [address] NEEDLE FELT MAKING MACHINE OPERATOR, BRIM WELT SEWING MACHINE OPERATOR [place], [place] [phone] [facility] [phone] [place], [place] [address] (Wo rk) Social History [...] Garcia, [facility] [address] [place] [address] (Wo rk) documented as of this encounter Visit Diagnoses Diagnosis Unspecified urinary incontinence documented in this encounter Care Teams Coating Mixer Supervisor Relationship Specialty Start Date End Date Luis Pierce MD PCP - General 05/27/1998 documented as of this encounter
--- OUTSIDE RECORDS SUMMARY | 2022-05-29 13:40 | XMS_ITS | Encounter Summary ---
:1955 Author [facility] Address [address] [place] [address] Care Team Providers Name Role Phone Luis Pierce MD Primary Care Provider Unavailable Encounter Details Date Type Department Care Team Description 12/12/1998 Orders Only Epic[facility] [place] [address] Social History Tobacco Use Types Packs/Day Years Used Date Smoking Tobacco: Never Assessed Sex Assigned at Date Recorded Not on file documented as of this encounter Plan of Treatment Upcoming Encounters Date Type Specialty Care Team Description 06/09/2022 Appointment General Dentistry Elaine Garcia, [facility] [address] [place] [address] (Wo rk) documented as of [...] URINE CULTURE IF (12/12/1998 6:29 PM CDT) [facility] gist Method Time Signature Urine Cult If UC Not [facility] Indicated Specimen Anatomical Collection Method Collection Time Receive d Time (Source) Location / / Volume Laterality 12/12/1998 6:29 PM 9 6:30 CDT PM CDT Narrative [facility] - 12/12/1998 6:29 PM CDT Ordered by [place] [facility] Internal Processing Epic LAB_1 Performing Organization Address City/State/ZIP Code Phon e Number [facility] [phone] [facility] [address] [address] UA WITH MICRO (12/12/1998 6:29 PM CDT) P athologist Signature Appr Yellow [...] 199 9 6:30 CDT PM CDT Narrative [facility] - 12/12/1998 6:29 PM CDT Ordered by [place] [facility] Internal Processing Epic LAB_1 Performing Organization Address City/State/ZIP Code Phon e Number [facility] [phone] [facility] [address] [address] documented in this encounter Visit Diagnoses Not on filedocumented in this encounter Care Teams Supervisor Cigar Making Hand Relationship Specialty Start Date End Date Luis Pierce MD PCP - General 05/27/1998 documented as of this encounter
--- OUTSIDE RECORDS SUMMARY | 2022-05-29 13:40 | XMS_ITS | Encounter Summary ---
:1955 Author Organization [facility] Address [address] [place] [address] Care Team Providers Name Role Phone Luis Pierce MD Primary Care Provider Unavailable Reason for Visit Reason Comments UTI VIA INTERFACE Encounter Details Date Type Department Care Team Description 12/12/1998 Office Visit [facility] [place] UTI [address] [place] [address] Social History Tobacco Use Types Packs/Day Years Used Date Smoking Tobacco: Never Assessed Sex Assigned at Date Recorded Not on file documented as of this encounter Plan of Treatment Upcoming Encounters Date Type Specialty Care Team Description 06/09/2022 Appointment General Dentistry Elaine Garcia, [facility] [address] [place] [address] (Wo rk) documented as of this encounter Visit Diagnoses Diagnosis Urinary tract infection, site not specif ied documented in this encounter Care Teams Drug Coordinator Relationship Specialty Start Date End Date Luis Pierce MD PCP - General 05/27/1998 documented as of this encounter
--- OUTSIDE RECORDS SUMMARY | 2022-05-29 13:40 | XMS_ITS | Encounter Summary ---
:1955 Author Organization [facility] Address [address] [place] [address] Care Team Providers Name Role Phone Luis Pierce MD Primary Care Provider Unavailable Encounter Details Date Type Department Care Team Description 09/03/1998 Office Visit [place] Obst[facility] and Regan Pierce rt SURGERY FOLLOW-UP Gynecology MD Cristina [address] [place] [address] Social History Tobacco Use Types [...] four weeks for final postoperative evaluation. cc: ULOSE INSULATION HELPER documented in this encounter Plan of Treatment Upcoming Encounters Date Type Specialty Care Team Description 06/09/2022 Appointment General Dentistry Elaine Garcia, [facility] [address] [place] [address] (Wo rk) documented as of this encounter Visit Diagnoses Diagnosis Follow-up examination following surgery documented in this encounter Care Teams Manager Combination Relationship Specialty Start Date End Date Luis Pierce MD PCP - General 05/27/1998 documented as of this encounter
--- OUTSIDE RECORDS SUMMARY | 2022-05-29 13:40 | XMS_ITS | Encounter Summary ---
:1955 Author Organization [employer] [employer] Address [address] [place] [address] Care Team Providers Name Role Phone Luis Pierce MD Primary Care Provider Unavailable Encounter Details Date Type Department Care Team Description 08/27/1998 Office Visit [place] [facility] ANDREEA Pierce TPART and Gynecology Luis Evans MD FOLLOW-UP [address] [place] [address] Social History Tobacco Use Types [...] suture removal and repeat wound check. cc: WRITER documented in this encounter Plan of Treatment Upcoming Encounters Date Type Specialty Care Team Description 06/09/2022 Appointment General Dentistry Elaine Garcia, [facility] [address] [place] [address] (Wo rk) documented as of this encounter Visit Diagnoses Diagnosis Routine follow-up documented in this encounter Care Teams Batch Or Continuous Still Operator Relationship Specialty Start Date End Date Luis Pierce MD PCP - General 05/27/1998 documented as of this encounter
--- OUTSIDE RECORDS SUMMARY | 2022-05-29 13:40 | XMS_ITS | Encounter Summary ---
:1955 Author Organization [facility] Address [address] [place] [address] Care Team Providers Name Role Phone Luis Pierce MD Primary Care Provider Unavailable Encounter Details Date Type Department Care Team Description 09/18/1998 Orders Only Francisco Gupta MD [address] [place], [place] [address] (Wo rk) Social History Tobacco Use Types Packs/Day Years Used Date Smoking Tobacco: Never Assessed Sex Assigned at Date Recorded Not on file documented as of this encounter Plan of Treatment Upcoming Encounters Date Type Specialty Care Team Description 06/09/2022 Appointment General Dentistry Elaine Garcia, [facility] [address] [place], [place] [phone] (Wo rk) documented as of this encounter Procedures Procedure Name Priority Date/Time Associated Diagnosis Comme nts URINE CULTURE Routine 09/18/1998 4:33 PM Results for this LEARNING CONSULTANT procedure are i n the results section . documented in this encounter Results URINE CULTURE (MIDSTREAM) (09/18/1998 4:33 PM LEARNING CONSULTANT) [facility] Method Time Signature Specimen Urine [facility] Description Special None [facility] Requests Culture No Growth [facility] After 1 Day Report Status Final [facility] Report Status [id number] [facility] Specimen Anatomical Collection Method Collection Time Receive d Time (Source) Location / / Volume Laterality 09/18/1998 4:33 PM 9 4:34 LEARNING CONSULTANT PM LEARNING CONSULTANT Francisco Gupat MD LAB_1 Performing Organization Address City/State/ZIP Code Phon e Number [facility] [phone] [facility] [address] [address] documented in this encounter Visit Diagnoses Not on filedocumented in this encounter Care Teams Hops Farmworker Relationship Specialty Start Date End Date Luis Pierce MD PCP - General 05/27/1998 documented as of this encounter
--- OUTSIDE RECORDS SUMMARY | 2022-05-29 13:40 | XMS_ITS | Encounter Summary ---
:1955 Author Organization [facility] Address [address] [place] [address] Care Team Providers Name Role Phone Alisha [...] [facility] [address] [place] [address] (Wo rk) documented as of this encounter Visit Diagnoses Not on filedocumented in this encounter Care Teams Regional Education Coordinator Relationship Specialty Start Date End Date Alisha Kimball MD PCP - General 07/08/[address] [place], [place] [phone] documented as of this encounter
--- OUTSIDE RECORDS SUMMARY | 2022-05-29 13:40 | XMS_ITS | Encounter Summary ---
:1955 Author Organization [facility] Address [address] [place] [address] Care Team Providers Name Role Phone Luis Pierce MD Primary Care Provider Unavailable Encounter Details Date Type Department Care Team Description 12/17/1998 Orders Only Hafsa Lei APRN, EGG PACKER [address] [place], [place] [address] (Wo rk) Social History Tobacco Use Types Packs/Day Years Used Date Smoking Tobacco: Never Assessed Sex Assigned at Date Recorded Not on file documented as of this encounter Plan of Treatment Upcoming Encounters Date Type Specialty Care Team Description 06/09/2022 Appointment General Dentistry Elaine Garcia, [facility] [address] [place], [place] [phone] (Wo rk) documented as of this encounter Procedures Procedure Name Priority Date/Time Associated Diagnosis Comme nts URINE CULTURE Routine 12/17/1998 4:36 PM Results for this CDT procedure are i n the results section . documented in this encounter Results URINE CULTURE (MIDSTREAM) (12/17/1998 4:36 PM CDT) Component Value Ref Test Analysis Performed At [facility] Method Time Signature Specimen Urine [facility] Description Special Sensitivity [facility] Requests Culture No Growth [facility] After 1 Day Report Status Final [facility] Report Status [id number] [facility] Specimen Anatomical Collection Method Collection Time Receive d Time (Source) Location / / Volume Laterality 12/17/1998 4:36 PM 9 7:24 CDT PM CDT Emily Lei COLLEGE ASSOCIATE, EGG PACKER LAB_1 Performing Organization Address City/State/ZIP Code Phon e Number [facility] [phone] [address] documented in this encounter Visit Diagnoses Not on filedocumented in this encounter Care Teams Education Program Coordinator Relationship Specialty Start Date End Date Luis Pierce MD PCP - General 05/27/1998 documented as of this encounter
--- OUTSIDE RECORDS SUMMARY | 2022-05-29 13:40 | XMS_ITS | Encounter Summary ---
:1955 Author Organization [facility] Address [address] [place] [address] Care Team Providers Name Role Phone Luis Pierce MD Primary Care Provider Unavailable Encounter Details Date Type Department Care Team Description 09/01/1998 Office Visit Deepthi Ashraf M D NONSPECIF SKIN ERUPT NEC [address] [place], [place] [address] (Wo rk) Social History Tobacco Use Types Packs/Day Years Used Date Smoking Tobacco: Never Assessed Sex Assigned at Date Recorded Not on file documented as of this encounter Plan of Treatment Upcoming Encounters Date Type Specialty Care Team Description 06/09/2022 Appointment General Dentistry Elaine Garcia, [facility] [address] [place], [place] [phone] (Wo rk) documented as of this encounter Visit Diagnoses Diagnosis Rash and other nonspecific skin eruption documented in this encounter Care Teams Denture Technician Relationship Specialty Start Date End Date Luis Pierce MD PCP - General 05/27/1998 documented as of this encounter
--- OUTSIDE RECORDS SUMMARY | 2022-05-29 13:41 | XMS_ITS | Encounter Summary ---
:1955 Author Organization [facility] Address [address] [place] [address] Care Team Providers Name Role Phone Miky Sultana MD Primary Care Provider Encounter Details Date Type Department Care Team Description 05/13/1998 Office Visit [place] [facility] GAB Pierce EXAMINATION; and Gynecology Luis Evans MD EXCESSIVE MENSTRUATION; [address] [place]; [place] [address] FEMALE STRESS INCONTINENCE [phone] Social History Tobacco Use Types Packs/Day Years [...] Appointment General Dentistry Elaine Garcia, [facility] [address] [place] [address] (Wo rk) documented as of this encounter Visit Diagnoses Diagnosis Gynecological examination Excessive or frequent menstruation Metrorrhagia Female stress incontinence documented in this encounter Care Teams Registered Dental Assistant Relationship Specialty Start Date End Date Miky Sultana MD PCP - General 06/17/1996 05/26/1998 [facility] [place] [place] [address] documented as of this encounter
--- OUTSIDE RECORDS SUMMARY | 2022-05-29 13:41 | XMS_ITS | Encounter Summary ---
:1955 Author Organization [facility] Address [address] [address] Care Team Providers Name Role Phone Luis Pierce MD Primary Care Provider Unavailable Encounter Details Date Type Department Care Team Description 06/10/1995 Office Visit Miky Sultana MD [address] [facility] [address] (Wo rosaline) Social History Tobacco Use Types Packs/Day Years [...] She will follow up as needed. cc: RONMENTAL HEALTH SAFETY MANAGER documented in this encounter Plan of Treatment Upcoming Encounters Date Type Specialty Care Team Description 06/09/2022 Appointment General Dentistry Elaine Garcia, [facility] [address] [place], [place] [phone] (Wo rk) documented as of this encounter Visit Diagnoses Not on filedocumented in this encounter Care Teams Nude Model Relationship Specialty Start Date End Date Luis Pierce MD PCP - General 05/27/1998 documented as of this encounter
--- OUTSIDE RECORDS SUMMARY | 2022-05-29 13:41 | XMS_ITS | Encounter Summary ---
:1955 Author [facility] Address [address] [place] [address] Care Team Providers Name Role Phone Luis [...] [facility] [address] [place], [place] [phone] (Wo rk) documented as of this encounter Visit Diagnoses Diagnosis Postcoital bleeding documented in this encounter Care Teams Oxygen Equipment Preparer Relationship Specialty Start Date End Date Luis Pierce MD PCP - General 05/27/1998 documented as of this encounter
--- OUTSIDE RECORDS SUMMARY | 2022-05-29 13:41 | XMS_ITS | Encounter Summary ---
:1955 [facility] Address [address] [place] [address] Care Team Providers Name Role Phone Luis Pierce MD Primary Care Provider Unavailable Encounter Details Date Type Department Care Team Description 08/17/1998 Office Visit Francisco Gupta MD OTITIS MEDIA NOS [address] [place], [place] [address] (Wo rk) Social History Tobacco Use Types Packs/Day Years Used Date Smoking Tobacco: Never Assessed Sex Assigned at Date Recorded Not on file documented as of this encounter Plan of Treatment Upcoming Encounters Date Type Specialty Care Team Description 06/09/2022 Appointment General Dentistry Elaine Garcia, [facility] [address] [place], [place] [phone] (Wo rk) documented as of this encounter Visit Diagnoses Diagnosis Unspecified otitis media documented in this encounter Care Teams Laborer Demolition Relationship Specialty Start Date End Date Luis Pierce MD PCP - General 05/27/1998 documented as of this encounter
--- OUTSIDE RECORDS SUMMARY | 2022-05-29 13:41 | XMS_ITS | Encounter Summary ---
:1955 Author Organization [facility] Address [address] [address] Care Team Providers Name Role Phone Miky [...] General Dentistry Elaine Garcia, [facility] [address] [place] [address] (Wo rk) documented as of this encounter Procedures Procedure Name Priority Date/Time Associated Comments Diagnosis HCG, QUALITATIVE Routine 03/25/1998 12:27 Results for this W/REFLEX QUANT PM CDT procedure are in the results section. documented in this encounter Visit Diagnoses Not on filedocumented in this encounter Care Teams Proposal Engineer Relationship Specialty Start Date End Date Miky Sultana MD PCP - General 06/17/1996 05/26/1998 [address] [place] [address] documented as of this encounter
--- OUTSIDE RECORDS SUMMARY | 2022-05-29 13:41 | XMS_ITS | Encounter Summary ---
:1955 Author Organization [facility] Address [address], [place] [address] Care Team Providers Name Role Phone Luis Pierce MD Primary Care Provider Unavailable Encounter Details Date Type Department Care Team Description 01/08/1997 Office Visit Miky Sultana MD [address] [facility] [place] [address] (Wo rk) Social History Tobacco Use Types [...] Dentistry Elaine Garcia, [facility] [address] [place] [address] (Wo rk) documented as of this encounter Visit Diagnoses Not on filedocumented in this encounter Care Teams Pca Relationship Specialty Start Date End Date Luis Pierce MD PCP - General 05/27/1998 documented as of this encounter
--- OUTSIDE RECORDS SUMMARY | 2022-05-29 13:41 | XMS_ITS | Encounter Summary ---
:1955 Author Organization [facility] Address [address] [place] [address] Care Team Providers Name Role Phone Miky [...] Elaine Garcia, [facility] [address] [place] [address] (Wo rk) documented as of this encounter Procedures Procedure Name Priority Date/Time Associated Diagnosis Comme nts CLINICAL PATH, Routine 03/26/1998 4:53 PM Results for this OTHER CDT procedure are i n the results section. documented in this encounter Results PATHOLOGY (03/26/1998 4:53 PM CDT) [facility] gist Method Time Signature Source/Site Endo [facility] Aspirate Report Status See Separate [facility] Report Specimen Anatomical Collection Method Collection Time Receive d Time (Source) Location / / Volume Laterality 03/26/1998 4:53 PM 8 4:54 CDT PM CDT Luis Pierce MD LAB_1 Performing Organization Address City/State/ZIP Code Phon e Number [facility] [phone] [facility] [address] [phone] documented in this encounter Visit Diagnoses Not on filedocumented in this encounter Care Teams Army Officer Relationship Specialty Start Date End Date Miky Sultana MD PCP - General 06/17/1996 05/26/1998 [address] [place] [address] documented as of this encounter
--- OUTSIDE RECORDS SUMMARY | 2022-05-29 13:41 | XMS_ITS | Encounter Summary ---
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 She has been using [...] Dentistry Elaine Garcia, [facility] [address] [place] [address] (Wo rk) documented as of this encounter Visit Diagnoses Not on filedocumented in this encounter Care Teams Plate Maker Zinc Relationship Specialty Start Date End Date Luis Pierce MD PCP - General 05/27/1998 documented as of this encounter
--- OUTSIDE RECORDS SUMMARY | 2022-05-29 13:41 | XMS_ITS | Encounter Summary ---
:1955 Author Organization [facility] Address [address] [place] [address] Care Team Providers Name Role Phone Miky [...] Dentistry Elaine Garcia, [facility] [address] [place] [address] (Wo rk) documented as of this encounter Procedures Procedure Name Priority Date/Time Associated Diagnosis Comme nts STREP GRP A, RAPID Waiting 10/05/1997 11:05 AM Re sults for this SCREEN MECHANICAL SHOP LABORER procedure are i n the results section. documented in this encounter Results RAPID, GPA STREP SCREEN (WAITING) (10/05/1997 11:05 AM MECHANICAL SHOP LABORER) [facility] Method Time Signature Patient Home [id number] [employer] Phone # Patient Work [phone] [employer] Phone # Grp A Rapid Negative [employer] Screen Grp A Culture Negative [employer] Final Specimen Anatomical Collection Method Collection Time Receive d Time (Source) Location / / Volume Laterality 10/05/1997 11:05 10/05/1997 AM MECHANICAL SHOP LABORER 11:06 AM MECHANICAL SHOP LABORER Wy Nursing Rn LAB_1 Performing Organization Address City/State/ZIP Code Phon e Number [facility] [phone] [employer] [address] [phone] documented in this encounter Visit Diagnoses Not on filedocumented in this encounter Care Teams Fleshing Machine Operator Relationship Specialty Start Date End Date Miky Sultana MD PCP - General 06/17/1996 05/26/1998 [address] [place] [address] documented as of this encounter
--- OUTSIDE RECORDS SUMMARY | 2022-05-29 13:41 | XMS_ITS | Encounter Summary ---
:1955 Author Organization [facility] Address [address] [place] [address] Care Team Providers Name Role Phone Luis [...] General Dentistry Elaine Garcia, [facility] [address] [place] [address] (Wo rk) documented as of this encounter Visit Diagnoses Not on filedocumented in this encounter Care Teams Book Binder Relationship Specialty Start Date End Date Luis Pierce MD PCP - General 05/27/1998 documented as of this encounter
--- OUTSIDE RECORDS SUMMARY | 2022-05-29 13:41 | XMS_ITS | Encounter Summary ---
:1955 Author Organization [facility] Address [address] [address] Support Name Relationship Address Phone Gino Velasco Unavailable [address] [phone] [place] [address] Pt Declined 01/01/2020 Unavailable Unavailable Unavailab le Care Team Providers Name Role Phone Luis [...] [facility] [address] [place] [address] (Wo rk) documented as of this encounter Procedures Procedure Name Priority Date/Time Associated Diagnosis Comme nts URINE CULTURE Routine 07/16/1998 4:03 PM Results for this LIABILITY ANALYST procedure are i n the results section . documented in this encounter Results URINE CULTURE ([place]) (07/16/1998 4:03 PM LIABILITY ANALYST) [facility] Method Time Signature Specimen Urine [facility] Description Cath/Bladder Special None [facility] Requests Culture No Growth [facility] After 2 Days Report Status Final [facility] Report Status [id number] [facility] Specimen Anatomical Collection Method Collection Time Receive d Time (Source) Location / / Volume Laterality 07/16/1998 4:03 PM 9 4:03 LIABILITY ANALYST PM LIABILITY ANALYST Luis Pierce MD LAB_1 Performing Organization Address City/State/ZIP Code Phon e Number [facility] [phone] [facility] [address] [place] [phone] documented in this encounter Visit Diagnoses Not on filedocumented in this encounter Care Teams Naval Marine Engineer Relationship Specialty Start Date End Date Luis Pierce MD PCP - General 05/27/1998 documented as of this encounter
--- OUTSIDE RECORDS SUMMARY | 2022-05-29 13:41 | XMS_ITS | Encounter Summary ---
:1955 Author Organization [facility] Address [address] [address] Care Team Providers Name Role Phone Luis Pierce MD Primary Care Provider Unavailable Encounter Details Date Type Department Care Team Description 10/17/1996 Office Visit Miky Sultana MD [address] [facility] [place] [address] (Wo rk) Social History Tobacco Use Types [...] Dentistry Elaine Garcia, [facility] [address] [place] [address] (Wo rk) documented as of this encounter Visit Diagnoses Not on filedocumented in this encounter Care Teams Inside Sales Relationship Specialty Start Date End Date Luis Pierce MD PCP - General 05/27/1998 documented as of this encounter
--- OUTSIDE RECORDS SUMMARY | 2022-05-29 13:41 | XMS_ITS | Encounter Summary ---
:1955 Author Organization [facility] Address [address] [place] [address] Care Team Providers Name Role Phone Luis Pierce MD Primary Care Provider Unavailable Encounter Details Date Type Department Care Team Description 08/17/1998 Office Visit Francisco Gupta MD [address] [place], [place] [address] (Wo rk) Social History [...] the hysterectomy. IN SUMMARY: OTITIS MEDIA cc: CTOR OF INSTRUMENTAL MUSIC documented in this encounter Plan of Treatment Upcoming Encounters Date Type Specialty Care Team Description 06/09/2022 Appointment General Dentistry Elaine Garcia, [facility] [address] [place] [address] (Wo rk) documented as of this encounter Visit Diagnoses Not on filedocumented in this encounter Care Teams Fleet Operations Manager Relationship Specialty Start Date End Date Luis Pierce MD PCP - General 05/27/1998 documented as of this encounter
--- OUTSIDE RECORDS SUMMARY | 2022-05-29 13:41 | XMS_ITS | Encounter Summary ---
:1955 Author Organization [facility] Address [address] [place] [address] Care Team Providers Name Role Phone Alisha [...] General Dentistry Elaine Garcia, [facility] [address] [place] [address] (Wo rk) documented as of this encounter Visit Diagnoses Not on filedocumented in this encounter Care Teams Event Marketing Representative Relationship Specialty Start Date End Date Alisha Kimball MD PCP - General 07/08/[address] [place], [place] [phone] documented as of this encounter
--- OUTSIDE RECORDS SUMMARY | 2022-05-29 13:41 | XMS_ITS | Encounter Summary ---
:1955 Author Organization [facility] Address [address] [address] Care Team Providers Name Role Phone Luis Pierce MD Primary Care Provider Unavailable Encounter Details Date Type Department Care Team Description 10/12/1995 Office Visit Miky Sultana MD [address] [facility] [place] [address] (Wo rk) Social History Tobacco Use Types [...] General Dentistry Elaine Garcia, [facility] [address] [place] [address] (Wo rk) documented as of this encounter Visit Diagnoses Not on filedocumented in this encounter Care Teams Line Construction Engineer Relationship Specialty Start Date End Date Luis Pierce MD PCP - General 05/27/1998 documented as of this encounter
--- OUTSIDE RECORDS SUMMARY | 2022-05-29 13:41 | XMS_ITS | Encounter Summary ---
:1955 Author Organization [facility] Address [address] [place] [address] Care Team Providers Name Role Phone Alisha Kimball MD Primary Care Provider Encounter Details Date Type Department Care Team Description 06/07/1995 Orders Only Miky Sultana MD [address] [facility] [address] [facility] [place] [address] (Wo rk) Social History Tobacco Use Types Packs/Day Years Used Date Smoking Tobacco: Never Assessed Sex Assigned at Date Recorded Not on file documented as of this encounter Plan of Treatment Upcoming Encounters Date Type Specialty Care Team Description 06/09/2022 Appointment General Dentistry Elaine Garcia, [facility] [address] [place], [place] [phone] (Wo rk) documented as of this encounter Visit Diagnoses Not on filedocumented in this encounter Care Teams Therapist Asst Relationship Specialty Start Date End Date Alisha Kimball MD PCP - General 07/08/05 [address] [place], [place] [phone] documented as of this encounter
--- OUTSIDE RECORDS SUMMARY | 2022-05-29 13:41 | XMS_ITS | Encounter Summary ---
:1955 Author Organization [facility] Address [address] [place] [address] Care Team Providers Name Role Phone Luis Pierce MD Primary Care Provider Unavailable Encounter Details Date Type Department Care Team Description 07/16/1998 Office Visit [place] [facility] EMILY Pierce MENSTRUATION; and Gynecology Luis Evans MD FEMALE STRESS INCONTINENCE [address] [place], [place] [phone] Social History Tobacco Use Types Packs/Day Years [...] time of her outpatient work up. cc: AGING CLERK documented in this encounter Plan of Treatment Upcoming Encounters Date Type Specialty Care Team Description 06/09/2022 Appointment General Dentistry Elaine Garcia, [facility] [address] [place] [address] (Wo rk) documented as of this encounter Visit Diagnoses Diagnosis Excessive or frequent menstruation Female stress incontinence documented in this encounter Care Teams Husker Operator Relationship Specialty Start Date End Date Luis Pierce MD PCP - General 05/27/1998 documented as of this encounter
--- OUTSIDE RECORDS SUMMARY | 2022-05-29 13:41 | XMS_ITS | Encounter Summary ---
:1955 Author Organization [facility]placed by [facility] Address [address] [place] [address] Care Team Providers Name Role Phone Alisha [...] [facility] [address] [place] [address] (Wo rk) documented as of this encounter Visit Diagnoses Not on filedocumented in this encounter Care Teams Assistant Statistician Relationship Specialty Start Date End Date Alisha Kimball MD PCP - General 07/08/[address] [place], [place] [phone] documented as of this encounter
--- OUTSIDE RECORDS SUMMARY | 2022-05-29 13:41 | XMS_ITS | Encounter Summary ---
:1955 Author Organization [employer] Address [address] [place] [address] Care Team Providers Name Role Phone Miky Sultana MD Primary Care Provider Encounter Details Date Type Department Care Team Description 05/16/1998 Orders Only [facility] Kari, SCREENING MAMM-MAILG [address] Luis Evans MD NEOPL-OTHER [place], [place] [phone] Social History Tobacco Use Types Packs/Day Years Used Date Smoking Tobacco: Never Assessed Sex Assigned at Date Recorded Not on file documented as of this encounter Procedure Notes Brenden Soto - 05/16/1998 12:00 AM CSTAssociated Order(s): MAMMOGRAM, SCREENING CLINICAL DATA: SCREENING INTERPRETATION: Bilateral mammogram 05/16/98: ACR BIRADS CATEGORY 1 - NEGATIVE MAMMOGRAM. There is mild prominence to the ductal and fibroglandular elements. The breasts are symmetrical in their appearance, with no abnormal calcifications, areas of architectural distortion, or spiculated masses identified at this time. No significant change from 10/27/95. CONCLUSION: There are no primary or secondary signs of malignancy identified at this time. RECOMMENDATION: Continued periodic mammographic screening is recommended, according to protocols established for patients in this age group by the A.C.R and A.C.S. ACR BIRADS CATEGORY 1 - NEGATIVE MAMMOGRAM Brenden Soto M.D. cc: Luis Pierce MD Radiology [place] documented in this encounter Plan of Treatment Upcoming Encounters Date Type Specialty Care Team Description 06/09/2022 Appointment General Dentistry Radha, Elainetejinder May, [facility] [address] [place] [address] (Wo rk) documented as of this encounter Procedures Procedure Name Priority Date/Time Associated Diagnosis Comme nts MAMMOGRAM, 05/16/1998 12:00 AM Screening Mamm-Mailg Results for this SCREENING MANAGER OF INFORMATION Neopl-Other procedure are i n the results section. documented in this encounter Results MAMMOGRAM, SCREENING (05/16/1998 12:00 AM MANAGER OF INFORMATION) Anatomical Region Laterality Modality Breast Other Specimen (Source) Anatomical Location Collection Method / Collectio n Time Received Time / Laterality Volume 05/16/1998 Transcriptions Brenden Soto - 05/16/1998 12:00 AM [facility] LINICAL DATA: SCREENING INTERPRETATION: Bilateral mammogram 05/16/98: ACR BIRADS CATEGORY 1 - NEGATIVE MAMMOGR AM. There is mild prominence to the ductal a nd fibroglandular elements. The breasts are symmetrical in their appearance, wit h no abnormal calcifications, areas of architectural distortion, or spiculated masses identified at this time. No significant change from 10/27/95. CONCLUSION: There are no primary or seco ndary signs of malignancy identified at this time. RECOMMENDATION: Continued periodic mammo graphic screening is recommended, according to protocols established for p atients in this age group by the A.C.R and A.C.S. ACR BIRADS CATEGORY 1 - NEGATIVE MAMMOGR AM Brenden Soto M.D. cc: Luis Pierce MD Radiology [place] Brenden Soto MD RAD_BI documented in this encounter Visit Diagnoses Diagnosis Other screening mammogram documented in this encounter Care Teams Rod And Tube Straightener Relationship Specialty Start Date End Date Miky Sultana MD PCP - General 06/17/1996 05/26/1998 [place] [address] documented as of this encounter
--- OUTSIDE RECORDS SUMMARY | 2022-05-29 13:41 | XMS_ITS | Encounter Summary ---
:1955 Author Organization [facility] Address [address] [address] Care Team Providers Name Role Phone Luis Pierce MD Primary Care Provider Unavailable Encounter Details Date Type Department Care Team Description 03/12/1997 Office Visit Miky Sultana MD [address] [facility] [place] [address] (Wo rk) Social History Tobacco Use Types [...] General Dentistry Elaine Garcia, [facility] [address] [place] [address] (Wo rk) documented as of this encounter Visit Diagnoses Not on filedocumented in this encounter Care Teams Auger Machine Offbearer Relationship Specialty Start Date End Date Luis Pierce MD PCP - General 05/27/1998 documented as of this encounter
--- OUTSIDE RECORDS SUMMARY | 2022-05-29 13:41 | XMS_ITS | Encounter Summary ---
:1955 Author Organization [employer] Address [address] [address] Care Team Providers Name Role Phone Luis Pierce MD Primary Care Provider Unavailable Encounter Details Date Type Department Care Team Description 10/27/1995 Orders Only Miky Sultana MD [address] [facility] [place] [address] (Wo rk) Social History Tobacco Use Types [...] Dentistry Elaine Garcia, [facility] [address] [place], [place] [phone] (Wo rk) documented as of this encounter [...] filedocumented in this encounter Care Teams Meter Record Clerk Relationship Specialty Start Date End Date Luis Pierce MD PCP - General 05/27/1998 documented as of this encounter
--- OUTSIDE RECORDS SUMMARY | 2022-05-29 13:41 | XMS_ITS | Encounter Summary ---
:1955 Author Organization [facility] Address [address] [place] [address] Care Team Providers Name Role Phone Alisha Kimball MD Primary Care Provider Encounter Details Date Type Department Care Team Description 06/10/1995 Orders Only Miky Sultana MD [address] [facility] [address] [facility] [place] [address] (Wo rk) Social History Tobacco Use Types Packs/Day Years Used Date Smoking Tobacco: Never Assessed Sex Assigned at Date Recorded Not on file documented as of this encounter Plan of Treatment Upcoming Encounters Date Type Specialty Care Team Description 06/09/2022 Appointment General Dentistry Elaine Garcia, [facility] [address] [place], [place] [phone] (Wo rk) documented as of this encounter Visit Diagnoses Not on filedocumented in this encounter Care Teams Tearoom Host/Hostess Relationship Specialty Start Date End Date Alisha Kimball MD PCP - General 07/08/05 [address] [place], [place] [phone] documented as of this encounter
--- OUTSIDE RECORDS SUMMARY | 2022-05-29 13:42 | XMS_ITS | Encounter Summary ---
:1955 Author Organization [facility] Address [address] [place] [address] Care Team Providers Name Role Phone Alisha Kimball MD Primary Care Provider Encounter Details Date Type Department Care Team Description 10/06/1994 Orders Only Miky Sultana MD [address] [facility] [address] [place] [facility] [place] [address] (Wo rk) Social History Tobacco Use Types Packs/Day Years Used Date Smoking Tobacco: Never Assessed Sex Assigned at Date Recorded Not on file documented as of this encounter Plan of Treatment Upcoming Encounters Date Type Specialty Care Team Description 06/09/2022 Appointment General Dentistry Elaine Garcia, [facility] [address] [place], [place] [phone] (Wo rk) documented as of this encounter Visit Diagnoses Not on filedocumented in this encounter Care Teams Rail Car Mechanic Relationship Specialty Start Date End Date Alisha Kimball MD PCP - General 07/08/05 [address] [place], [place] [phone] documented as of this encounter
--- OUTSIDE RECORDS SUMMARY | 2022-05-29 13:42 | XMS_ITS | Encounter Summary ---
:1955 [address] [facility] Address [address] [facility] [place] [address] Care Team Providers Name Role Phone Luis Pierce MD Primary Care Provider Unavailable Encounter Details Date Type Department Care Team Description 07/02/1994 Orders Only Miky Sultana MD [address] [facility] [place] [address] (Wo rk) Social History Tobacco Use Types Packs/Day Years Used Date Smoking Tobacco: Never Assessed Sex Assigned at Date Recorded Not on file documented as of this encounter Plan of Treatment Upcoming Encounters Date Type Specialty Care Team Description 06/09/2022 Appointment General Dentistry Elaine Garcia, [facility] [address] [place], [place] [phone] (Wo rk) documented as of this encounter Results MAMMOGRAM, BILATERAL DIAGNOSTI (07/02/1994 12:00 AM LEAVE MANAGER) Anatomical Region Laterality Modality Breast Other Specimen (Source) Anatomical Location Collection Method / Collectio n Time Received Time / Laterality Volume 07/02/1994 Miky Sultana MD RAD_BI documented in this encounter Visit Diagnoses Not on filedocumented in this encounter Care Teams Flight Operations Specialist Relationship Specialty Start Date End Date Luis Pierce MD PCP - General 05/27/1998 documented as of this encounter
--- OUTSIDE RECORDS SUMMARY | 2022-05-29 13:42 | XMS_ITS | Encounter Summary ---
:1955 Author Organization [facility] Address [address], [place] [address] Care Team Providers Name Role Phone Luis Pierce MD Primary Care Provider Unavailable Encounter Details Date Type Department Care Team Description 06/07/1995 Office Visit Miky Sultana MD [address] [facility] [place] [address] (Wo rk) Social History Tobacco Use Types [...] is no improvement within 10 days. cc: MAKING MACHINE OPERATOR documented in this encounter Plan of Treatment Upcoming Encounters Date Type Specialty Care Team Description 06/09/2022 Appointment General Dentistry Elaine Garcia, [facility] [address] [place], [place] [phone] (Wo rk) documented as of this encounter Visit Diagnoses Not on filedocumented in this encounter Care Teams Section Crews Activities Clerk Relationship Specialty Start Date End Date Luis Pierce MD PCP - General 05/27/1998 documented as of this encounter
--- OUTSIDE RECORDS SUMMARY | 2022-05-29 13:42 | XMS_ITS | Encounter Summary ---
:1955 Author Organization [facility] Address [address], [place] [address] Care Team Providers Name Role Phone Luis Pierce MD Primary Care Provider Unavailable Encounter Details Date Type Department Care Team Description 05/15/1994 Office Visit Francisco Albarran MD [address] [place], [place] [address] (Wo rosaline) Social History Tobacco Use Types [...] was reassured and we'll treat symptomatically. cc: L TACKER documented in this encounter Plan of Treatment Upcoming Encounters Date Type Specialty Care Team Description 06/09/2022 Appointment General Dentistry Elaine Garcia, [facility] [address] [place] [address] (Wo rosaline) documented as of this encounter Visit Diagnoses Not on filedocumented in this encounter Care Teams Demolition Worker Relationship Specialty Start Date End Date Luis Pierce MD PCP - General 05/27/1998 documented as of this encounter
--- OUTSIDE RECORDS SUMMARY | 2022-05-29 13:42 | XMS_ITS | Encounter Summary ---
:1955 Author Organization [facility] Address [address] [place] [address] Care Team Providers Name Role Phone Alisha Kimball MD Primary Care Provider Encounter Details Date Type Department Care Team Description 01/26/1995 Orders Only Miky Sultana MD [address] [facility] [place] [address] (Wo rk) Social History Tobacco Use Types Packs/Day Years Used Date Smoking Tobacco: Never Assessed Sex Assigned at Date Recorded Not on file documented as of this encounter Plan of Treatment Upcoming Encounters Date Type Specialty Care Team Description 06/09/2022 Appointment General Dentistry Elaine Garcia, [facility] [address] [place], [place] [phone] (Wo rk) documented as of this encounter Visit Diagnoses Not on filedocumented in this encounter Care Teams Order Selector Relationship Specialty Start Date End Date Alisha Kimball MD PCP - General 07/08/05 [address] [place], [place] [phone] documented as of this encounter
--- OUTSIDE RECORDS SUMMARY | 2022-05-29 13:42 | XMS_ITS | Encounter Summary ---
:1955 Author Organization [facility] Address [address], [place] [address] Care Team Providers Name Role Phone Luis Pierce MD Primary Care Provider Unavailable Encounter Details Date Type Department Care Team Description 06/01/1994 Office Visit Miky Sultana MD [address] [facility] [place] [address] (Wo rk) Social History Tobacco Use Types [...] sooner if she has her problems. cc: ARS SUPERVISOR documented in this encounter Plan of Treatment Upcoming Encounters Date Type Specialty Care Team Description 06/09/2022 Appointment General Dentistry Elaine Garcia, [facility] [address] [place] [address] (Wo rk) documented as of this encounter Visit Diagnoses Not on filedocumented in this encounter Care Teams Barrel Loader Relationship Specialty Start Date End Date Luis Pierce MD PCP - General 05/27/1998 documented as of this encounter
--- OUTSIDE RECORDS SUMMARY | 2022-05-29 13:42 | XMS_ITS | Encounter Summary ---
:1955 Author Organization [facility] Address [address] [place] [address] Care Team Providers Name Role Phone Miky Sultana MD Primary Care Provider Encounter Details Date Type Department Care Team Description 07/02/1994 Orders Only [facility] Unknown, Physician Radiology [address] [place] [phone] (Wo rk) Social History Tobacco Use Types Packs/Day Years Used Date Smoking Tobacco: Never Assessed Sex Assigned at Date Recorded Not on file documented as of this encounter Procedure Notes Brenden Soto MD - 07/02/1994 12:00 AM CSTAssociated Order(s): BREAST IMAGING BILATERAL MAMMOGRAM 07/02/94: The breasts are normal in their appearance, with no abnormal calcifications or spiculated masses identified at this time. There is no significant change from 04/25/91. Conclusion: NEGATIVE MAMMOGRAM. There are no primary or secondary signs of malignancy identified at this time. Recommendation: CONTINUED PERIODIC MAMMOGRAPHIC SCREENING is recommended, according to the I.C.S.I. protocols established for patients in this age group. Brenden Soto M.D. cc: Radiology SP Miky Sultana MD documented in this encounter Plan of Treatment Upcoming Encounters Date Type Specialty Care Team Description 06/09/2022 Appointment General Dentistry Elaine Garcia, [facility] [address] [place], [place] [phone] (Wo rk) documented as of this encounter Procedures Procedure Name Priority Date/Time Associated Diagnosis Comme nts BREAST IMAGING 07/02/1994 Results for t his procedure are in the resu lts section. documented in this encounter Results BREAST IMAGING (07/02/1994) Anatomical Region Laterality Modality Breast Other Specimen (Source) Anatomical Location Collection Method / Collectio n Time Received Time / Laterality Volume Narrative 07/02/1994 Ordered by an unspecified provider. Transcriptions Brenden Soto MD - 07/02/1994 12:00 AM CSTBILATERAL MAMMOGRAM 07/02/94: The breasts are normal in their appearance, with no abnormal calcifications or spiculated masses identified at this time. There is no significant change from 04/25/91. Conclusion: NEGATIVE MAMMOGRAM. There ar e no primary or secondary signs of malignancy identified at this time. Recommendation: CONTINUED PERIODIC MAMMO GRAPHIC SCREENING is recommended, according to the I.C.S.I. protocols esta blished for patients in this age group. Brenden Soto M.D. cc: Radiology SP Miky Sultana MD Physician Unknown RAD_BI documented in this encounter Visit Diagnoses Not on filedocumented in this encounter Care Teams Embossing Press Operator Molded Goods Relationship Specialty Start Date End Date Miky Sultana MD PCP - General 09/21/01 07/07/[address] [place] [place] [address] documented as of this encounter
--- OUTSIDE RECORDS SUMMARY | 2022-05-29 13:42 | XMS_ITS | Encounter Summary ---
:1955 Author Organization [facility] Address [address] [place] [address] Care Team Providers Name Role Phone Alisha Kimball MD Primary Care Provider Encounter Details Date Type Department Care Team Description 10/26/1994 Orders Only Miky Sultana MD [address] [facility] [place] [address] (Wo rk) Social History Tobacco Use Types Packs/Day Years Used Date Smoking Tobacco: Never Assessed Sex Assigned at Date Recorded Not on file documented as of this encounter Plan of Treatment Upcoming Encounters Date Type Specialty Care Team Description 06/09/2022 Appointment General Dentistry Elaine Garcia, [facility] [address] [place], [place] [phone] (Wo rk) documented as of this encounter Visit Diagnoses Not on filedocumented in this encounter Care Teams Solderer Assembler Relationship Specialty Start Date End Date Alisha Kimball MD PCP - General 07/08/05 [address] [place], [place] [phone] documented as of this encounter
--- NOTE | 2022-05-29 14:00 | CRLHL7_ITS ---
For Patients: As a result of the Century Cures Act, medical imaging exams and procedure reports are released immediately into your electronic medical record. You may view this report before your referring provider. If you have questions, please contact your health care provider. BILATERAL SCREENING MAMMOGRAM WITH COMPUTER-AIDED DETECTION TECHNIQUE: CC and MLO views were obtained. These mammographic images have been obtained using full-field digital technique. These mammographic images were interpreted with the benefit of computer-aided detection. COMPARISON FILM: 03/11/21, 02/12/20 and 02/10/19 [facility]. FINDINGS: The breasts are almost entirely fatty IMPRESSION: There is no radiographic evidence for malignancy. ASSESSMENT: BI-RADS Category 1: Negative RECOMMENDATION: Routine screening mammogram in 1 year. A lay language report of this examination will be provided to the patient. Froy García M.D. Diagnostic Radiologist [email or web address] ROSCOE/Dictated by: Froy García MD @ 06/01/2022 8:48:00 AM (Electronically Signed)
== END 2022-05-29 13:27 | disposition home or self-care (01) ==
LOC: MAMMO 13:27
PROVIDERS: PCP Family Medicine; Visit Provider Family Medicine
DX: Z12.31 Encounter for screening mammogram for malignant neoplasm of breast (principal)
CPT/HCPCS: 77067

== ENCOUNTER 2022-06-04 12:52 | Outpatient (CLI) | payer OTHER, SELFPAY ==
--- OUTSIDE RECORDS SUMMARY | 2022-06-10 14:18 | XMS_ITS | Encounter Summary ---
:1955 Author Organization [facility] Address [address] [place] [address] Care Team Providers Name Role Phone Carroll Avalos MD Primary Care Provider Encounter Details Date Type Department Care Team Description 04/11/2020 Lab Visit [facility] Elevated liver enzymes (Primary Dx); Laboratory Essential hypertension; [address] [facility] TANNER (dyspnea on exertion); [place], [place] [address] Type 2 diabetes mellitus wit hout complication, without long-term current use of insulin (HRC); [phone] Hypercholestero lemia Social History Tobacco Use Types [...] (ABNORMAL) Microalb/Creat Ratio (04/11/2020 11:00 AM CDT) [email or web address] Method Time Signature Albumin, 72.7 mg/L 04/11/2020 Ordr[facility] Urine, Random 5:52 PM CDT C[facility]AL [facility] Creatinine, 129 >20 mg/dL 04/11/2020 [facility] Urine, Random 5:52 PM CDT CENTRAL LAB Albumin/Creati 56 (H) <30 mg/g 04/11/2020 [facility] nine Ratio, 5:52 PM CDT CENTRAL LAB Urine, Random Specimen Anatomical Collection Method Collection Time Receive d Time (Source) Location / / Volume Laterality Urine,random 04/11/2020 11:00 04/11/2020 AM CDT 12:31 PM CDT Kareen Cohen APRN, ISI LAB_1 Performing Organization Address City/State/ZIP Code Phon e Number [facility] [address] [phone] (ABNORMAL) Hgb A1C (04/11/2020 8:48 AM CDT) [facility] Method Time Signature Hemoglobin A1C 7.2 (H) <=5.6 % 04/11/2020 [facility] 10:07 PM CDT C[facility]AL [facility] Specimen Anatomical Collection Method / Collection Time Recei dawn Time (Source) Location / Volume Laterality Blood Venipuncture / 04/11/2020 8:48 04/11/2020 8:48 Unknown AM CDT AM CDT Narrative [facility] - 04/11/2020 10:07 PM CDT For patients not previously diagnosed with diabetes: 5.7-6.4%: Increased risk for diabetes 6.5% and greater: Diagnostic for diabete s For patients diagnosed with diabetes: <8.0%: Goal of therapy for ages 18-75 Clinicians may recommend a higher or low er goal for specific individuals. Carroll Avalos MD LAB_1 Performing Organization Address [facility] Phon e Number [facility] CENTRAL LAB [address] [address] TSH with Free T4 (if TSH Abnormal) (04/11/2020 8:48 AM CDT) athologist Signature TSH, Reflex 3.02 0.30 - 04/11/2020 [facility] 4.50 11:53 AM CDT CENTRAL LAB uIU/mL Specimen Anatomical Collection Method / Collection Time Recei dawn Time (Source) Location / Volume Laterality Blood Venipuncture / 04/11/2020 8:48 04/11/2020 8:48 Unknown AM CDT AM CDT [facility] CENTRAL LAB - 04/11/2020 11:53 AM CDT Lab will automatically reflex to Free T4 when TSH results are <0.30 uIU/mL or >4.50 mIU/mL. Janice Gill PA-C LAB_1 Performing Organization Address [facility] e Number [facility] [address] [place] [phone] (ABNORMAL) ALT (SGPT) (04/11/2020 8:48 AM CDT) athologist Signature ALT (SGPT) 63 (H) 0 - 55 U/L 04/11/2020 [facility] 11:44 AM CDT CENTRAL LAB Specimen Anatomical Collection Method / Collection Time Recei dawn Time (Source) Location / Volume Laterality Blood Venipuncture / 04/11/2020 8:48 04/11/2020 8:48 Unknown AM CDT AM CDT Janice Gill PA-C LAB_1 Performing Organization Address [facility] e Number [facility] [address] [address] (ABNORMAL) BASIC METABOLIC PANEL (04/11/2020 8:48 AM CDT) [facility] gist Method Time Signature Sodium 139 136 - 145 04/11/2020 [facility] mmol/L 11:44 AM CDT CEN[facility]AL LAB Potassium 4.6 3.5 - 5.1 04/11/2020 [facility] mmol/L 11:44 AM CDT CEN[facility]AL LAB Chloride 105 98 - 109 04/11/2020 [facility] mmol/L 11:44 AM CDT CEN[facility]AL LAB CO2 26 20 - 29 04/11/2020 [facility] mmol/L 11:44 AM CDT [facility]AL LAB Anion Gap 8 7 - 16 04/11/2020 [facility] mmol/L 11:44 AM CDT CENTRAL LAB Calcium 9.1 8.4 - 04/11/2020 [facility] 10.4 11:44 AM CDT CEN[facility]AL LAB mg/dL BUN 16 7 - 26 04/11/2020 [facility] mg/dL 11:44 AM CDT CENTRAL LAB Creatinine 0.87 0.55 - 04/11/2020 [facility] 1.02 11:44 AM CDT CENTRAL LAB mg/dL GFR, Estimated >60 >60 04/11/2020 [facility] mL/min/1. 11:44 AM CDT CENTRAL LAB 73m2 Glucose 128 (H) 70 - 100 04/11/2020 [facility] mg/dL 11:44 AM CDT CENTRAL LAB Comment: The given reference range is fo r the fasting state. Non-fasting reference range for glucose is 70 - 180 mg/dL. Hours Fasting N/A 04/11/2020 11:44 AM CDT [facility] Specimen Anatomical Collection Method / Collection Time Recei dawn Time (Source) Location / Volume Laterality Blood Venipuncture / 04/11/2020 8:48 04/11/2020 8:48 Unknown AM CDT AM CDT Janice Gill PA-C LAB_1 Performing Organization Address City/State/ZIP Code Phon e Number [facility] [address] [address] [facility] [address] [place] [address], [facility] CBC (aka HEMOGRAM/PLTS) (04/11/2020 8:48 AM CDT) P athologist Signature WBC 7.1 3.5 - 10.5 04/11/2020 [facility] x10(9)/L 8:58 AM CDT LAB RBC 4.71 3.90 - 5.03 04/11/2020 [facility] x10(12)/L 8:58 AM CDT LAB Hemoglobin 13.9 12.0 - 15.5 04/11/2020 [facility] g/dL 8:58 AM CDT LAB HCT 42.3 34.9 - 44.5 04/11/2020 [facility] % 8:58 AM CDT LAB MCV 89.8 80.0 - 04/11/2020 [facility] 100.0 fL 8:58 AM CDT LAB MCH 29.5 27.6 - 33.3 04/11/2020 [facility] pg 8:58 AM CDT LAB MCHC 32.9 31.5 - 35.2 04/11/2020 [facility] g/dL 8:58 AM CDT LAB RDW 13.1 11.9 - 15.5 04/11/2020 [facility] % 8:58 AM CDT LAB Platelets 223 150 - 450 04/11/2020 [facility] x10(9)/L 8:58 AM CDT LAB Specimen Anatomical Collection Method / Collection Time Recei dawn Time (Source) Location / Volume Laterality Blood Venipuncture / 04/11/2020 8:48 04/11/2020 8:48 Unknown AM CDT AM CDT Janice Gill PA-C LAB_1 Performing Organization Address City/State/ZIP Code Phon e Number [facility] [address] [place] [address] documented in this encounter Visit [...] hypercholesterolemia documented in this encounter Care Teams Pipe Insulator Helper Relationship Specialty Start Date End Date Carroll Avalos MD PCP - General 07/08/05 [address] [place] [address] documented as of this encounter
--- OUTSIDE RECORDS SUMMARY | 2022-06-10 14:18 | XMS_ITS | Encounter Summary ---
:1955 Author Organization [facility] Address [address], [place] [address] Care Team Providers Name Role Phone Alisha Kimball MD Primary Care Provider Reason for Visit Reason Comments Dental Hygiene none Encounter Details Date Type Department Care Team Description 10/16/2021 Office Visit [facility] Addie Gonzalez ental Hygiene (none) Dentistry A, [facility] [address] [address] [phone] (Wo rk) Social History Tobacco Use Types [...] agreement with Josue Kerns DDS (License #: [id number]) CHART REVIEW: Reviewed with patient: Medical history, [...] Primary documented in this encounter Care Teams Hydraulic Governor Assembler Relationship Specialty Start Date End Date Alisha Kimball MD PCP - General 07/08/05 [address] [place] [address] documented as of this encounter
--- OUTSIDE RECORDS SUMMARY | 2022-06-10 14:18 | XMS_ITS | Encounter Summary ---
:1955 Author Organization [facility] Address [address], [place] [address] Care Team Providers Name Role Phone Alisha Kimball MD Primary Care Provider Reason for Visit Reason Comments BP CHECK,NURSE IMMUNIZATIONS Encounter Details Date Type Department Care Team Description 04/11/2020 Nursing Visit [facility] ial hypertension; Department Encounter for immunization [address] [place], [place] [address] Social History Tobacco [...] can you learn more? 1. Go to [email or web address] or [email or web address]. 2. Enter X567 in the search box. Current as of: June 18, 2019?Content Version: 12.4 ?? [id number] [employer]. Care instructions adapted under license by your healthcare professional. If you have questions abouta medical condition or this instruction, always ask your healthcare professional. [employer] disclaims any warranty or liability for your [...] disease documented in this encounter Care Teams Yard Supervisor Cotton Gin Relationship Specialty Start Date End Date Alisha Kimball MD PCP - General 07/08/05 [address] [place] [address] documented as of this encounter
--- OUTSIDE RECORDS SUMMARY | 2022-06-10 14:18 | XMS_ITS | Clinical Summary ---
:1955 Author Organization [facility] Address [address] [place] [address] Care Team Providers Name Role Phone Alisha [...] for each transition of care or referral. [facility] Allergies Active Allergy Reactions Severity Noted Date [...] Engaged in Disease Management-Diabetes: Marisol Cruz RN [phone] Diabetes mellitus, type 2 05/14/2010 12/07/2017 Encounters Date Type Specialty Care Team Description 06/09/2022 Office Visit General Dentistry Yaquelin Garcia Den tal Hygiene (No cc) RD from Last 3 Months Immunizations Name Administration Dates Next Due Flu Vac (3+ yrs) 04/01/2012, 05/01/2011, 04/18/2010 Influenza IIV3 (Trivalent) Fluzone 03/28/2019 Highdose, 65+ Yrs (19585) Influenza IIV4 (Quadrivalent) 0.5mL 04/11/2018, 05/19/2017, 04/30/2016, (42080) 04/27/2014 Influenza IIV4 (Quadrivalent) Fluad, 04/11/2020 65+ [...] Relation Name Status Comments Father (Age 64) [place] Mother (Age 76) ovarian cancer Brother 1 Alive Brother 2 Alive Brother 3 Alive Brother 4 Alive Brother 5 Alive Maternal Grandfather accident Maternal Grandmother [place] Paternal Grandfather [place] Paternal Grandmother [place] Sister Alive Son 1 Alive Son 2 [...] Pressure 144/115 04/16/2020 11:54 AM CDT Pulse 55 06/09/2022 8:14 AM ACCOUNTS RECEIVABLE REPRESENTATIVE Temperature 36.6 ??C (97.8 ??F) 04/16/2020 11:54 [...] Date/Time Associated Diagnosis Comme nts PROPHYLAXIS-ADULT Routine 06/09/2022 8:10 AM ACCOUNTS RECEIVABLE REPRESENTATIVE Chronic perio dontitis, RECALL localized, slight from Last 3 Months Insurance Payer Benefit Plan / Subscriber ID Effective Phone Address T ype [employer] [facility] [id number] 2017-Pres [employer] DENT[place] MEDICARE [id number] 2019-Pres [facility] care ent [employer] MEDICARE [id number] 2018-Pres Commercial SUPPLEMENT ent Guarantor Name Account Type Relation to Date of Phone Billing Patient Address Loc [place] Personal/Family Self 1955 [address] (Home) [place] [facility] [place] [phone] [address] (Work) Loc [place] Personal/Family Self 1955 [address] (Home) [place] [facility] [place] [place] [phone] (Work) Care Teams Cmm Inspector Relationship Specialty Start Date End Date Alisha Kimball MD PCP - General 07/08/[address] [place] [address]
--- OUTSIDE RECORDS SUMMARY | 2022-06-10 14:18 | XMS_ITS | Encounter Summary ---
:1955 Author Organization [facility] Address [address], [place] [address] Care Team Providers Name Role Phone Alisha Kimball MD Primary Care Provider Reason for Visit Reason Comments Dental Hygiene no cc;s Encounter Details Date Type Department Care Team Description 10/08/2020 Office Visit [facility] Dori Mayer De nta Hygiene (no Dentistry RD cc;s) [address] [facility] [address] [place] [phone] Social History Tobacco Use Types Packs/Day Years [...] collaborating agreement with Jamaal Cleveland DDS (License #:[id number]) PRESENTATION: Oral Hygiene: Fair Plaque: Localized, light [...] facility documented in this encounter Care Teams Cataloging Assistant Relationship Specialty Start Date End Date Alisha Kimball MD PCP - General 07/08/05 [address] [place] [address] documented as of this encounter
--- OUTSIDE RECORDS SUMMARY | 2022-06-10 14:18 | XMS_ITS | Encounter Summary ---
:1955 Author Organization [employer] Address [address] [place] [address] Care Team Providers Name Role Phone Alisha Kimball MD Primary Care Provider Reason for Visit Reason Comments Dental Exam none Dental Hygiene Encounter Details Date Type Department Care Team Description 02/24/2022 Office Visit [facility] Gonzalez, [facility] [address] [place] [address] Dental Exam (none); Dentistry Yardic, Exam Dental Hygiene [address] [place] [address] Social History Tobacco Use Types [...] by the dentist, dental hygienist, or dental computer assistant. Congratulations on your low risk for [...] agreement with Josue Kerns DDS (License #: [id number]) PROCEDURAL PAUSE: Patient identity verified: Yes Treatment [...] Primary documented in this encounter Care Teams Motel Front Desk Attendant Relationship Specialty Start Date End Date Alisha Kimball MD PCP - General 07/08/05 [address] [place] [address] documented as of this encounter
--- OUTSIDE RECORDS SUMMARY | 2022-06-10 14:18 | XMS_ITS | Encounter Summary ---
:1955 Author Organization [employer] Address [address] [place] [address] Care Team Providers Name Role Phone Alisha Kimball MD Primary Care Provider Reason for Visit Reason Comments Medication Questions Encounter Details Date Type Department Care Team Description 01/10/2020 Telephone [facility] Alisha Kimball MD Medication Questions Practice [address] [place] [address] [place], [place] [address] [phone] Social History Tobacco Use Types Packs/Day Years [...] (HRC) documented in this encounter Care Teams Warpman Relationship Specialty Start Date End Date Alisha Kimball MD PCP - General 07/08/05 [address] [place] [address] documented as of this encounter
--- OUTSIDE RECORDS SUMMARY | 2022-06-10 14:18 | XMS_ITS | Encounter Summary ---
:1955 Author Organization [facility] Address [address] [place] [address] Care Team Providers Name Role Phone Alisha Kimball MD Primary Care Provider Encounter Details Date Type Department Care Team Description 01/03/2020 Lab Visit [facility] Type 2 diabetes mellitus [address] [facility] without complication, [place], [place] [address] without long-term current [phone] use of insulin (HRC) Social History Tobacco [...] Results Microalb/Creat Ratio (01/03/2020 11:20 AM CDT) [facility] Method Time Signature Albumin, 28.6 mg/L 01/03/2020 [employer] Urine, Random 4:36 PM CDT [facility] Creatinine, 155 >20 mg/dL 01/03/2020 [employer] Urine, Random 4:36 PM CDT C[facility]AL [facility] Albumin/Creati 18 <30 mg/g 01/03/2020 [employer] nine Ratio, 4:36 PM T CENTRAL LAB Urine, Random Specimen Anatomical Collection Method Collection Time Receive d Time (Source) Location / / Volume Laterality Urine Non-blood 01/03/2020 11:20 01/03/2020 Collection / AM CDT 11:34 AM CDT Unknown Alisha Kimball MD LAB_1 Performing Organization Address City/State/ZIP Code Phon e Number [facility] [address] [address] documented in this encounter Visit Diagnoses Diagnosis Type 2 diabetes mellitus without complic ation, without long-term current use of insulin (HRC) documented in this encounter Care Teams Application Security Consultant Relationship Specialty Start Date End Date Alisha Kimball MD PCP - General 07/08/05 [address] [place] [address] documented as of this encounter
--- OUTSIDE RECORDS SUMMARY | 2022-06-10 14:18 | XMS_ITS | Encounter Summary ---
:1955 Author Organization [facility] Address [address] [place] [address] Care Team Providers Name Role Phone Alisha [...] Visit [facility] Alisha Kimball [facility] hypertension; Practice Paroxysmal atrial fibrillation (HRC) [address] [place] [address] [place] [address] [phone] Social History Tobacco Use Types Packs/Day Years [...] take warfarin. [facility]. ?? Don't take warfarin if you [...] These include aspirin and other pain relievers, jjiq-qbu-inszexh medicines, multivitamins, dietary supplements, and herbal products. [...] Leafy greens, such as kale, cabbage, spinach, Pakistani chard, and lettuce. ?? Canola and soybean oils. ?? Green vegetables, such as asparagus, broccoli, and Kismet sprouts. ?? Vegetable drinks, green tea leaves, [...] Where can you learn more? Go to eRep[employer]/eRALOS3 and enter N172 in the search box. Current as of: September 13, 2013 Content Version: 10.1 ?? [id number] Prelert. documented in this encounter Progress Notes Alisha [...] fibrillation documented in this encounter Care Teams Die Cleaner Relationship Specialty Start Date End Date Alisha Kimball MD PCP - General 07/08/[address] [place] [address] documented as of this encounter
--- OUTSIDE RECORDS SUMMARY | 2022-06-10 14:18 | XMS_ITS | Encounter Summary ---
:1955 Author Organization [employer] Address [address] [place] [address] Care Team Providers Name Role Phone Alisha Kimball MD Primary Care Provider Reason for Visit Reason Comments Eye Exam Encounter Details Date Type Department Care Team Description 01/25/2020 Office Visit [facility] Eric Keller, OD Diabetes type 2, no ocular involvement ( HRC) (Primary Dx); [address] [place] [address] [place], [place] [phone] Social History Tobacco Use Types Packs/Day Years [...] Presbyopia documented in this encounter Care Teams Band Teacher Relationship Specialty Start Date End Date Alisha Kimball MD PCP - General 07/08/05 [address] [place] [address] documented as of this encounter
--- OUTSIDE RECORDS SUMMARY | 2022-06-10 14:18 | XMS_ITS | Encounter Summary ---
:1955 Author Organization [employer] Address [address], [place] [address] Care Team Providers Name Role Phone Alisha Kimball MD Primary Care Provider Reason for Visit Reason Onset Date Comments Refill 01/09/2020 Encounter Details Date Type Department Care Team Description 01/09/2020 Refill [facility] maxi Alisha Kimball MD Refill [address] [facility] [address] [place] [address] [place], [place] [phone] (Wo rk) Social History Tobacco Use Types [...] (HRC) documented in this encounter Care Teams Meal Room Hand Relationship Specialty Start Date End Date Alisha Kimball MD PCP - General 07/08/05 [address] [place] [address] documented as of this encounter
--- OUTSIDE RECORDS SUMMARY | 2022-06-10 14:18 | XMS_ITS | Encounter Summary ---
:1955 Author Organization [facility] Address [address] [place] [address] Care Team Providers Name Role Phone Alisha Kimball MD Primary Care Provider Encounter Details Date Type Department Care Team Description 08/16/2020 Anticoagulation [facility] Cent er [address] [facility] [address] [place] [address] [address] [place], [place] [address] [phone] Social History Tobacco Use Types Packs/Day Years [...] on filedocumented in this encounter Care Teams Screening Representative Relationship Specialty Start Date End Date Alisha Kimball MD PCP - General 07/08/05 [address] [place], [place] [id number] documented as of this encounter
--- OUTSIDE RECORDS SUMMARY | 2022-06-10 14:18 | XMS_ITS | Encounter Summary ---
:1955 Author Organization [employer] Address [address], [place] [address] Care Team Providers Name Role Phone Alisha Kimball MD Primary Care Provider Reason for Referral Consult/Transfer Care (Routine) - Incomplete Specialty Diagnoses / Procedures Referred By Contact Refer red To Contact Diagnoses CAREPLAN: ANTI-COAGULATION Paroxysmal atrial fibrillation (HRC) Madiha Olivares III, MD [address] [place] [address] Referral ID Status Reason Start Date Expiration Date Visits V isits Requested Authorized [id number] Incomplete 06/14/2020 09/13/2021 1 1 Scheduling Instructions . INALIST TECHNICIAN Reason for Visit Reason Comments Medication Questions Encounter Details Date Type Department Care Team Description 06/14/2020 Telephone [facility] Alisha Kimball MD Medication Questions Practice [address] [facility] [address] [facility] [place] [address] [place], [place] [phone] Social History Tobacco Use Types Packs/Day Years Used Date Smoking Tobacco: Never Smokeless Tobacco: Never Alcohol Use Standard Drinks/Week Comments No 0 (1 standard drink = 0.6 oz pure alcoho l) Sex Assigned at Date Recorded Not on file documented as of this encounter Patient Instructions Patient InstructionsMadiha Olivares III, MD - 06/14/2020 1:12 PM CST INALIST TECHNICIAN documented in this encounter Nursing Notes Addie Gonzalez RDH - 06/12/2021 9:58 AM CST Pt. Requested removal, the patient takes eliquis. Addie Gonzalez RDH 06/12/2021, 9:59 AM INALIST TECHNICIAN Madiha Olivares III, MD - 06/14/2020 5:06 PM CST Order is signed. Madiha Olivares III, MD INALIST TECHNICIAN Juan Hoffman - 06/14/2020 2:16 PM CST Pt called states that she is not starting the warfarin until Jul. For now she needs just 15 days worth of Eliquis [facility]. Per pt, please just send 15 days worth of medication, she will do labs when she comes back from [place], thank you INALIST TECHNICIAN Mary De La O - 06/14/2020 1:52 PM CST Patient called back and states that she will make it work and to cancel this request. INALIST TECHNICIAN Mickie Welsh RN - 06/14/2020 1:40 PM CST Cotton Ball Bagger discussed with pt. Pt states she has enough elquist until 07/05/19. Pt will be back in town 2week of July. Pt states she can go Wednesday morning to get labs as she is leaving for [place] on wed06/19/20-07/19/19. Please advise. Mickie Welsh RN 06/14/2020, 1:42 PM INALIST TECHNICIAN Madiha Olivares III, MD - 06/14/2020 1:12 PM CST Will order for warfarin initiation and refer to the coumadin clinic. Needs baseline labs. RN please inform patient.Madiha Olivares III, MD INALIST TECHNICIAN Rocio Garcia - 06/14/2020 10:15 AM CST [...] month, next week Wednesday. Will forward to [facility] - Dr Olivares (Dr Kimball out of clinic) Who prescribed it? Alisha Kimball MD Is it okay to leave a detailed message on your voicemail? Yes For this medication, patient would like it filled at the pharmacy listed in Meds & Orders. [Inventory Control Analyst/Appt Center: Verify the pharmacy patient would like to use for this request is highlighted in blue in Pharmacy Selection under Meds & Orders] Rocio Garcia Please route to: Care Team Pool If this is a Medicaid drug change, please route to: clinic specific Refill medical research scientist INALIST TECHNICIAN documented in this encounter Plan of Treatment Scheduled Referrals Name Type Priority Associated Diagnoses Order S chedule [facility] Anticoagulation Dosing Referral Routine CAREPLAN: Or dered: Order ANTI-COAGULATION 06/14/2020 Paroxysmal atrial fibrillation (HRC) documented as of this encounter Visit Diagnoses Diagnosis CAREPLAN: ANTI-COAGULATION 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
--- OUTSIDE RECORDS SUMMARY | 2022-06-10 14:18 | XMS_ITS | Encounter Summary ---
:1955 Author Organization [facility] Address [address] [place] [address] Care Team Providers Name Role Phone Alisha Kimball MD Primary Care Provider Encounter Details Date Type Department Care Team Description 06/14/[address] [facility] er [address] [place] [address] [address] [place], [place] [address] [phone] Social History Tobacco Use Types Packs/Day Years [...] Barnes RN/[facility] 06/14/2020 2:33 PM NNED LEATHER ROLLER Maryosl Davidson RN - 06/14/2020 2:27 PM CST Will postpone for 07/18/2020 follow-up. Provider sent ref[place] of Eliquis for [facility]. [facility] is planning on switching to warfarin at that time. Marysol Davidson, CAITLYN 06/14/2020, 7:19 PM NNED LEATHER ROLLER Floresita Wyatt - 06/14/2020 2:27 PM CST Per INR Reg: no INR recheck date . Please review. Floresita Wyatt 08/16/2020, 9:41 AM NNED LEATHER ROLLER Kian Barnes RN - 06/14/2020 2:27 PM CST Spoke with pt and per pt she is no longer with [facility] since then first of the year. She is now getting her primary through [facility]. Per pt she cont on Eliquis but anticoagulation is now managed by [facility]. Will discontinued anticoagulation care with [facility]. Sending as FYI to PCP. Kian Barnes RN[facility] 08/16/2020 10:32 AM NNED LEATHER ROLLER documented in this encounter Plan of Treatment Not on filedocumented as of this encounter Visit Diagnoses Not on filedocumented in this encounter Care Teams Senior Applications Developer Relationship Specialty Start Date End Date Alisha Kimball MD PCP - General 07/08/05 [address] [place] [address] documented as of this encounter
--- OUTSIDE RECORDS SUMMARY | 2022-06-10 14:18 | XMS_ITS | Encounter Summary ---
:1955 Author Organization [facility] Address [address] [place] [address] Care Team Providers Name Role Phone Alisha Kimball MD Primary Care Provider Reason for Visit Procedure/Equipment (Routine) - Incomplete Specialty Diagnoses / Procedures Referred By Contact Refer red To Contact Diagnoses Screening for osteoporosis Alisha Kimball MD Procedures DEXA Bone Density Spine/Hip [address] [place] [address] Referral ID Status Reason Start Date Expiration Date Visits V isits Requested Authorized [id number] Incomplete 01/03/2020 04/03/2021 1 1 Encounter Details Date Type Department Care Team Description 02/22/2020 Ancillary [facility] Alisha Kimball Scre ening for Procedure 401 Bone Density osteoporosis [address] [facility] [id number] [place] [address] Social History Tobacco Use Types Packs/Day Years [...] Volume Narrative 02/22/2020 12:58 PM CDT Indication:Screening Final Touch Up Painter and Model of Instrument: Bill.Forward Demographics Age: 65 y.o. Gender: female Height [...] Alcohol 3units or more per day (on [employer]):No Currently smoking:No Other pertinent history: Dual-X-ray Absorptiometry [...] osteoporosis documented in this encounter Care Teams Mobile Home Lot Utility Worker Relationship Specialty Start Date End Date Alisha Kimball MD PCP - General 07/08/05 [address] [place] [address] documented as of this encounter
--- OUTSIDE RECORDS SUMMARY | 2022-06-10 14:18 | XMS_ITS | Encounter Summary ---
:1955 Author Organization [employer] Address [address] [place] [address] Care Team Providers Name Role Phone Alisha Kimball MD Primary Care Provider Reason for Visit Reason Comments Dental Exam none Dental Hygiene Encounter Details Date Type Department Care Team Description 06/12/2021 Office Visit [facility] Gonzalez, [facility] [address] [place] [address] Dental Exam (none); Dentistry Yardic, Exam Dental Hygiene [address] [place] [address] Social History Tobacco Use Types [...] - - Pulse 61 06/12/2021 9:19 AM JR. SYSTEMS ADMINISTRATOR Temperature - - Respiratory Rate - [...] next visit! Thank you for choosing [facility]. . SYSTEMS ADMINISTRATOR documented in this encounter Progress Notes Jamaal [...] DDS 06/12/2021, 9:45 AM --End of Note-- . SYSTEMS ADMINISTRATOR Addie Gonzalez RDH - 06/12/2021 9:20 AM CST HYGIENE PROPHY NOTE COLLABORATIVE AGREEMENT: The patient consents to have charting, radiographs and prophylaxis by the dental hygienist performed with the understanding that this care is not a substitute for an examination by a dentist. These activities were performed under a collaborating agreement with Josue Kerns DDS (License #: [id number]) PROCEDURAL PAUSE: Patient identity verified: Yes Treatment [...] RDH 06/12/2021, 10:00 AM --End of Note-- . SYSTEMS ADMINISTRATOR documented in this encounter Plan of Treatment Not on filedocumented as of this encounter Procedures Procedure Name Priority Date/Time Associated Diagnosis Comme nts [id number] Routine 06/12/2021 9:20 AM JR. SYSTEMS ADMINISTRATOR Chronic charlie odontitis, localized, slight PERIODIC ORAL Routine 06/12/2021 9:20 AM JR. SYSTEMS ADMINISTRATOR Chronic periodont itis, EVALUATION localized, slight PROPHYLAXIS-ADULT Routine 06/12/2021 9:20 AM JR. SYSTEMS ADMINISTRATOR Chronic perio dontitis, RECALL localized, slight documented in this encounter Visit Diagnoses Diagnosis Chronic periodontitis, localized, slight - Primary documented in this encounter Care Teams Pedodontist Relationship Specialty Start Date End Date Alisha Kimball MD PCP - General 07/08/05 [address] [place] [address] documented as of this encounter
--- OUTSIDE RECORDS SUMMARY | 2022-06-10 14:18 | XMS_ITS | Encounter Summary ---
:1955 Author Organization [facility] Address [address] [place] [address] Care Team Providers Name Role Phone Carroll Avalos MD Primary Care Provider Reason for Referral Medication Prior Authorization (Routine) - Closed Specialty Diagnoses / Procedures Referred By Contact Refer red To Contact Carroll Avalos MD [address] [place] [address] Referral ID Status Reason Start Date Expiration Date Visits Requ ested Visits Authorized [id number] Closed 1 1 ING PRODUCTION MANAGER Reason for Visit Reason Comments Refill metFORMIN XR (GLUCOPHAGE XR) 500 MG 24 hour release tablet [Pharmacy Med Name: METFORMIN HCL ER 500 MG TABL ET]; atorvastatin (LIPITOR) 10 MG tablet [Pharmacy Med Name: ATORVASTATIN 10 MG TABLET] Encounter Details Date Type Department Care Team Description 08/25/2020 [facility] Carroll Avalos MD Refill (metFORMIN XR [address] [facility] [address] (GLUCOPHAGE XR) 500 [place] [address] [place] [address] 24 hour release tablet [phone] (Wo rk) [Pharmacy Med Name: METFORMIN HCL [...] order. Tesha Cagle RN 08/26/2020, 4:23 PM ING PRODUCTION MANAGER Interface, Out Surescripts Prov Query - 08/25/2020 [...] mouth daily. (changed but equivalent) Powered by [facility], Reference: [id number], 08/25/2020 11:42:56 AM TOURING PRODUCTION MANAGER, Luis Eduardo: ARNOLD REFILL CAITLYN ([id number]) metFORMIN XR (GLUCOPHAGE XR) 500 MG 24 [...] HBA1C: 7.2 % on 04/11/2020 Powered by [employer], Reference: [id number], 08/25/2020 11:42:56 AM TOURING PRODUCTION MANAGER, Pool: ARNOLD REFILL CAITLYN ([id number]) ING PRODUCTION MANAGER Interface, Out Lukkin Prov Query - 08/25/2020 11:42 AM CST The following lab order(s) may be associated with the Result Note below: COMPLETE BLOOD COUNT-NO DIFF Notes recorded by Lucy Mancuso RN on 04/11/2020 at 10:39 AM CDT Letter sent with results. Lucy Mancuso RN 04/11/2020, 10:39 AM ING PRODUCTION MANAGER documented in this encounter Plan of Treatment Not on filedocumented as of this encounter Visit Diagnoses Not on filedocumented in this encounter Care Teams Well Drill Operator Helper Cable Tool Relationship Specialty Start Date End Date Carroll Avalos MD PCP - General 07/08/05 [address] [place] [address] documented as of this encounter
--- OUTSIDE RECORDS SUMMARY | 2022-06-10 14:18 | XMS_ITS | Encounter Summary ---
:1955 Author Organization [facility] Address [address] [place] [address] Care Team Providers Name Role Phone Alisha Kimball MD Primary Care Provider Encounter Details Date Type Department Care Team Description 04/12/2020 Lab [place] [facility] [place] [address] [place], [place] [address] Social History Tobacco [...] on filedocumented in this encounter Care Teams Construction Inspector Relationship Specialty Start Date End Date Alisha Kimball MD PCP - General 07/08/[address] [place], [place] [id number] documented as of this encounter
--- OUTSIDE RECORDS SUMMARY | 2022-06-10 14:18 | XMS_ITS | Encounter Summary ---
:1955 Author Organization [facility] Address [address] [place] [address] Care Team Providers Name Role Phone Carroll Kimball MD Primary Care Provider Reason for Visit Reason Comments Refill atenolol (TENORMIN) 100 MG t ablet [Pharmacy Med Name: ATENOLOL 100 MG TABLET] Encounter Details Date Type Department Care Team Description 05/21/2020 Refill [facility] Carroll Kimball MD Refill (atenolol Practice [address] (TENORMIN) 100 MG tablet [address] [place] [address] [Pharmacy Med Name: [place] [address] ATENOLOL 100 MG TABLET]) [phone] Social History Tobacco Use Types Packs/Day Years [...] Order Nadia Garcia RN 05/22/2020, 11:55 AM T CAN ROUTER Interface, Out Surescripts Prov Query - 05/21/2020 12:02 AM CST atenolol (TENORMIN) 100 MG tablet [Pharmacy Med Name: ATENOLOL 100 MG TABLET] Miscellaneous - 12 Month Visit -> Refill x 12 months, qty: 90, refills: 3 (until due for an office visit) Last qualifying visit: 04/16/2020 (with CARROLL KIMBALL) Next scheduled visit: None Last ordered by CARROLL KIMBALL: 07/03/2019 (323 days ago) QTY: 90, Refills: 3, Sig: take 1 tablet by mouth daily. (changed but equivalent) Powered by [employer], Reference: [id number], 05/21/2020 12:02:43 AM PILOT CAN ROUTER, Luis Eduardo: ARNOLD REFILL RN ([id number]) T CAN ROUTER documented in this encounter Plan of Treatment Not on filedocumented as of this encounter Visit Diagnoses Diagnosis Paroxysmal atrial fibrillation (HRC) Atrial fibrillation documented in this encounter Care Teams Catalogue Clerk Relationship Specialty Start Date End Date Carroll Kimball MD PCP - General 07/08/05 [address] [place] [address] documented as of this encounter
--- OUTSIDE RECORDS SUMMARY | 2022-06-10 14:18 | XMS_ITS | Encounter Summary ---
:1955 Author Organization [facility] Address [address] [place] [address] Care Team Providers Name Role Phone Alisha Kimball MD Primary Care Provider Reason for Referral Procedure/Equipment (Routine) - Incomplete Specialty Diagnoses / Procedures Referred By Contact Refer red To Contact Procedures Alisha Kimball MD MM Mammogram Screening [facility] [address] [place] [address] Referral ID Status Reason Start Date Expiration Date Visits V isits Requested Authorized [id number] Incomplete 02/12/2020 05/13/2021 1 1 Reason for Visit Procedure/Equipment (Routine) - Incomplete Specialty Diagnoses / Procedures Referred By Contact Refer red To Contact Procedures Alisha Kimball MD MM Mammogram Screening [place] [address] [place] [address] Referral ID Status Reason Start Date Expiration Date Visits V isits Requested Authorized [id number] Incomplete 02/12/2020 05/13/2021 1 1 Encounter Details Date Type Department Care Team Description 02/12/2020 Ancillary Procedure [facility] [address] [facility] [place] [address] Social History Tobacco Use Types [...] on filedocumented in this encounter Care Teams Nanoelectronics Engineer Relationship Specialty Start Date End Date Alisha Kimball MD PCP - General 07/08/05 [address] [place] [address] documented as of this encounter
--- OUTSIDE RECORDS SUMMARY | 2022-06-10 14:18 | XMS_ITS | Encounter Summary ---
:1955 Author Organization [facility] Address [address] [place] [address] Care Team Providers Name Role Phone Alisha Kimball MD Primary Care Provider Reason for Visit Reason Comments BP,ELEVATED Encounter Details Date Type Department Care Team Description 04/11/2020 Telephone [facility] Alisha Remy MD BP,ELEVATED [address] [facility] [address] [place] [address] [place] [address] (Wo rk) Social History Tobacco [...] pain, include location): Patient was seen at [facility] today, and had her BP checked. It was 167/136. Was told to call her clinic. What have you tried at home (please specify medication name, if any)? Patient on Losartan. Have you recently been seen for this? Yes: [[facility]: Refer to Symptoms Indicating Need for Triage list to determine urgency level and next steps - if Urgent or Routine, schedule appointment within the appropriate timeframe.If patient wants to speak to an RN, please warm transfer/route to RN for further triage.] [[facility]: Add/verify patient preferred pharmacy is highlighted in blue in the Pharmacy Selection under Meds & Orders] [[facility]: If this call is after 3 p.m., communicate to patient: If we are not able to get back to you by the end of the day and your symptoms worsen, please contact the Careline [phone] OR at .] Is it okay to leave a detailed message on your voicemail? Yes I can transfer you to talk to a Triage Nurse or I am happy to get you scheduled with your primary rn urgent care or one of their partners for a [...] hypertension documented in this encounter Care Teams Ground Nuclear Weapons Assembly Officer Relationship Specialty Start Date End Date Alisha Kimball MD PCP - General 07/08/05 [address] [place] [address] documented as of this encounter
--- OUTSIDE RECORDS SUMMARY | 2022-06-10 14:18 | XMS_ITS | Encounter Summary ---
:1955 Author Organization [facility] Address [address] [address] Care Team Providers Name Role Phone Alisha Kimball MD Primary Care Provider Reason for Visit Reason Comments Dental Hygiene none Encounter Details Date Type Department Care Team Description 02/14/2020 Office Visit [facility] Yaquelin Garcia Hygiene (none) [facility] [address] [address] [phone] Social History Tobacco Use Types Packs/Day Years [...] collaborating agreement with Jamaal [place] DDS (License #:[id number]) PRESENTATION: Oral Hygiene: Good Plaque: Localized, light supra-gingival , interproximal, mandibular anterior and posterior buccal Calculus: Localized, moderate interproximal and mandibular anterior Stain: None Bleeding: None Gingival tissue: Normal Mucogingival concerns: Absent ACTIVITIES: Hand scale, Flossed all contacts and No citizen of [place] PATIENT EDUCATION: Caries risk, Periodontal risk, Oral [...] Name Priority Date/Time Associated Diagnosis Comme nts [id number] Routine 02/14/2020 10:20 AM Localized gingi vitis CDT PERIODIC ORAL EVALUATION Routine 02/14/2020 10:20 AM Localized gingivitis CDT PROPHYLAXIS-ADULT RECALL Routine 02/14/2020 10:20 AM Localized gingivitis CDT documented in this encounter Visit Diagnoses Diagnosis Localized gingivitis - Primary Gingivitis Chronic gingivitis, plaque induced documented in this encounter Care Teams Plate Take Out Worker Relationship Specialty Start Date End Date Alisha Kimball MD PCP - General 07/08/05 [address] [place] [address] documented as of this encounter
--- OUTSIDE RECORDS SUMMARY | 2022-06-10 14:18 | XMS_ITS | Encounter Summary ---
:1955 Author Organization [facility] Address [address] [address] Care Team Providers Name Role Phone Alisha Kimball MD Primary Care Provider Reason for Visit Reason Comments LAB TESTS, NOS Encounter Details Date Type Department Care Team Description 04/03/2020 Telephone [facility] Alisha Oneill MD LAB TESTS, NOS [address] [facility] [address] [place], [place] [address] [place] [address] [phone] (Wo rk) Social History Tobacco Use Types [...] (ABNORMAL) Hgb A1C (04/11/2020 8:48 AM CDT) [facility] gist Method Time Signature Hemoglobin A1C 7.2 (H) <=5.6 % 04/11/2020 [facility] 10:07 PM CDT CENTRAL LAB Specimen Anatomical Collection Method / Collection Time Recei dawn Time (Source) Location / Volume Laterality Blood Venipuncture / 04/11/2020 8:48 04/11/2020 8:48 Unknown AM CDT AM CDT Narrative [facility] - 04/11/2020 10:07 PM CDT For patients not previously diagnosed with diabetes: 5.7-6.4%: Increased risk for diabetes 6.5% and greater: Diagnostic for diabete s For patients diagnosed with diabetes: <8.0%: Goal of therapy for ages 18-75 Clinicians may recommend a higher or low er goal for specific individuals. Alisha Kimball MD LAB_1 Performing Organization Address City/State/ZIP Code Phon e Number [facility] [address] [address] documented in this encounter Visit Diagnoses Diagnosis Type 2 diabetes mellitus without complic ation, without long-term current use of insulin (HRC) - Primary Hypercholesterolemia Pure hypercholesterolemia documented in this encounter Care Teams Etl Bi Developer Relationship Specialty Start Date End Date Alisha Kimball MD PCP - General 07/08/05 [address] [place] [address] documented as of this encounter
--- OUTSIDE RECORDS SUMMARY | 2022-06-10 14:18 | XMS_ITS | Encounter Summary ---
:1955 Author Organization [facility] Address [address] [address] Care Team Providers Name Role Phone Alisha Kimball MD Primary Care Provider Reason for Visit Reason Comments Dental Hygiene none Encounter Details Date Type Department Care Team Description 02/07/2021 Office Visit [facility] Gen Gonzalez [facility] [address] [place] [address] Dental Hygiene (none) Dentistry [place], Exam [address] [place] [address] Social History Tobacco Use Types [...] agreement with Josue Kerns DDS (License #: [id number]) CHART REVIEW: Reviewed with patient: Medical history, [...] EXISTING PFM CROWN Routine 07/09/2009 12:00 AM POST DOCTORAL FELLOW documented in this encounter Visit Diagnoses Diagnosis Chronic periodontitis, localized, slight - Primary documented in this encounter Care Teams Parachute Mender Relationship Specialty Start Date End Date Alisha Kimball MD PCP - General 07/08/05 [address] [place] [address] documented as of this encounter
--- OUTSIDE RECORDS SUMMARY | 2022-06-10 14:18 | XMS_ITS | Encounter Summary ---
:1955 Author Organization [facility] Address [address] [address] Care Team Providers Name Role Phone Alisha Kimball MD Primary Care Provider Reason for Visit Reason Comments Dental Hygiene No cc Encounter Details Date Type Department Care Team Description 06/09/2022 Office Visit [facility] Yaquelin Garcia Hygiene (No cc) [facility] [address] [address] [phone] Social History Tobacco Use Types Packs/Day Years Used Date Smoking Tobacco: Never Smokeless Tobacco: Never Alcohol Use Standard Drinks/Week Comments No 0 (1 standard drink = 0.6 oz pure alcoho l) Sex Assigned at Date Recorded Not on file documented as of this encounter Last Filed Vital Signs Vital Sign Reading Time Taken Comments Blood Pressure - - Pulse 55 06/09/2022 8:14 AM RACK MAKER Temperature - - Respiratory Rate - - Oxygen Saturation - - Inhaled Oxygen Concentration - - Weight - - Height - - Body Mass Index - - documented in this encounter Patient Instructions Patient InstructionsYaquelin Garcia RD - 06/09/2022 8:10 AM CST Your next hygiene recall is due: 10/09/2022 PERSONAL DENTAL RISK REPORT FOR LAYO VELASCO Caries (Tooth Decay) Risk low mod high Risk Level: Child's Risk: We look forward to seeing Melia at her next visit! [email or web address] documented in this encounter Progress Notes Yaquelin Garcia RDH - 06/09/2022 8:10 AM CST HYGIENE PROPHY NOTE (NO EXAM) REASON FOR VISIT/CHIEF COMPLAINT: Layo is a 67 y.o. female who presents for Dental Hygiene (No cc) COLLABORATIVE AGREEMENT: The patient consents to have charting and prophylaxis by the dental hygienist performed with the understanding that this care is not a substitute for an examination by a dentist. These activities were performed under a collaborating agreement with Malina Garcia DDS (License #: [id number]) CHART REVIEW: Reviewed with patient: Medical history, Dental history, Problem list, Periodontal charting, and Radiographs PROCEDURAL PAUSE: Patient identity verified: Yes Treatment plan/site verified with the patient: Yes Instruments/equipment verified: Yes Any medication/allergy contraindications: No PRESENTATION: Plaque: Localized, light supra-gingival and interproximal Calculus: Localized, moderate supra-gingival , sub-gingival, interproximal, mandibular anterior, andposterior buccal Stain: None Bleeding: Localized light Gingival tissue: Normal Mucogingival concerns: Absent ACTIVITIES: Hand scale, Essential selective polishing, and Flossed all contacts PATIENT EDUCATION: Periodontal risk, OHI, and Oral care adjuncts TREATMENT REVIEW AND FOLLOW-UP: Discussed the prognosis and treatment options with the patient. All questions answered and informed consent was obtained. Recommended Recall Interval: Examination: 8 months : Recall prophy: 4 months Planned Recall Interval: Examination: 8 months : Recall prophy: 4 months Next Planned Hygiene Visit: Hygiene Prophy with exam Yaquelin Garcia RDH 06/09/2022, 9:01 AM --End of Note-- MAKER documented in this encounter Plan of Treatment Scheduled Orders Name Type Priority Associated Order Schedule Diagnoses PROPHYLAXIS-ADULT Dental Procedures Routine 1 Occ urrences RECALL starting 2021 PERIODIC ORAL Dental Procedures Routine 1 Occurre nces EVALUATION starting 2021 [id number] Dental Procedures Routine 1 Oc currences starting 2021 TOPICAL FLUORIDE Dental Procedures Routine 1 Occu rrences VARNISH starting 2021 documented as of this encounter Procedures Procedure Name Priority Date/Time Associated Diagnosis Comme nts PROPHYLAXIS-ADULT Routine 06/09/2022 8:10 AM RACK MAKER Chronic perio dontitis, RECALL localized, slight documented in this encounter Visit Diagnoses Diagnosis Chronic periodontitis, localized, slight - Primary documented in this encounter Care Teams City Planning Teacher Relationship Specialty Start Date End Date Alisha Kimball MD PCP - General 07/08/05 [address] [place] [address] documented as of this encounter
--- OUTSIDE RECORDS SUMMARY | 2022-06-10 14:18 | XMS_ITS | Encounter Summary ---
:1955 Author Organization [email or web address] Address [address], [place] [address] Care Team Providers Name Role Phone Alisha Kimball MD Primary Care Provider Reason for Visit Reason Comments Dental Hygiene none Encounter Details Date Type Department Care Team Description 06/06/2020 Office Visit [facility] Alisha Avila, Alfalfa al Hygiene (none) Dentistry [facility] [address] [address] [phone] Social History Tobacco Use Types Packs/Day Years Used Date Smoking Tobacco: Never Smokeless Tobacco: Never Alcohol Use Standard Drinks/Week Comments No 0 (1 standard drink = 0.6 oz pure alcoho l) Sex Assigned at Date Recorded Not on file documented as of this encounter Last Filed Vital Signs Vital Sign Reading Time Taken Comments Blood Pressure - - Pulse 102 06/06/2020 7:09 AM SALES FLOOR ASSOCIATE Temperature - - Respiratory Rate - - [...] agreement with Beth Lauren DDS (License #: [id number]) CHART REVIEW: Reviewed with patient: Medical history, [...] Avila 06/06/2020, 7:38 AM --End of Note-- S FLOOR ASSOCIATE documented in this encounter Plan of Treatment Not on filedocumented as of this encounter Procedures Procedure Name Priority Date/Time Associated Diagnosis Comme nts PROPHYLAXIS-ADULT Routine 06/06/2020 7:10 AM SALES FLOOR ASSOCIATE Gingivitis RECALL documented in this encounter Visit Diagnoses Diagnosis Gingivitis - Primary Chronic gingivitis, plaque induced Routine adult health maintenance Routine general medical examination at a health care facility documented in this encounter Care Teams Dog Daycare Provider Relationship Specialty Start Date End Date Alisha Kimball MD PCP - General 07/08/05 [address] [place] [address] documented as of this encounter
--- OUTSIDE RECORDS SUMMARY | 2022-06-10 14:19 | XMS_ITS | Encounter Summary ---
:1955 Author Organization [facility] Address [address] [place] [address] Care Team Providers Name Role Phone Carroll Avalos MD Primary Care Provider Reason for Visit Reason Comments Refill atorvastatin (LIPITOR) 10 MG tablet [Pharmacy Med Name: ATORVASTATIN 10 MG TABLET] Encounter Details Date Type Department Care Team Description 08/15/2019 [facility]ill [facility] Carroll Avalos MD Refill (atorvastatin [address] [facility] [address] (LIPITOR) 10 [place] [address] [place] [address] [Pharmacy Med Name: [phone] (Wo rk) ATORVASTATIN 10 MG TABLET]) Social History Tobacco Use Types Packs/Day Years Used Date Smoking Tobacco: Never Smokeless Tobacco: Never Alcohol Use Standard Drinks/Week Comments No 0 (1 standard drink = 0.6 oz pure alcoho l) Sex Assigned at Date Recorded Not on file documented as of this encounter Nursing Notes Interface, Out [email or web address] Prov Query - 08/16/2019 12:23 PM CST The patient chart could not be locked at 08/16/2019 12:23 PM by [employer] in order to process this refill request. Please try re-routing to attempt to retry processing through [employer]. ONNEL PLACEMENT SPECIALIST Mickie Welsh RN - 08/16/2019 12:21 PM CST [place] Tanner discussed with pt. Pt states she needs both metformin and atorvastatin refilled. Pt states she takes 5mg of atorvastatin daily. Pt is going out of town for 2 weeks to [place] but then will schedule follow up with pcp when she returns. Mickie Welsh RN 08/16/2019, 12:23 PM ONNEL PLACEMENT SPECIALIST Meaghan Briggs RN - 08/16/2019 12:00 PM [...] DAY Meaghan Briggs RN 08/16/2019, 12:00 PM ONNEL PLACEMENT SPECIALIST Interface, Out Surescripts Prov Query - 08/15/2019 6:31 PM CST atorvastatin (LIPITOR) 10 MG tablet [Pharmacy Med Name: ATORVASTATIN 10 MG TABLET] Miscellaneous - 12 Month Visit -> Refill x 6 months, qty: 90, refills: 1 (until due for an office visit) Last qualifying visit: 12/12/2018 (in [facility]) Next scheduled visit: None Last ordered by CARROLL AVALOS K: 02/01/2018 (560 days ago) QTY: 90, Refills: 3, Sig: take 1 tablet by mouth every day (unchanged) Powered by [employer], Reference: [id number], 08/15/2019 6:31:46 PM PERSONNEL PLACEMENT SPECIALIST, Pool: ARNOLD REFILL RN ([id number]) ONNEL PLACEMENT SPECIALIST documented in this encounter Plan of Treatment Not on filedocumented as of this encounter Visit Diagnoses Not on filedocumented in this encounter Care Teams Proof Coin Collector Relationship Specialty Start Date End Date Carroll Avalos MD PCP - General 07/08/05 [address] [facility] [place] [place] [address] documented as of this encounter
--- OUTSIDE RECORDS SUMMARY | 2022-06-10 14:19 | XMS_ITS | Encounter Summary ---
:1955 Author Organization [facility] Address [address] [place] [address] Care Team Providers Name Role Phone Alisha Kimball MD Primary Care Provider Encounter Details Date Type Department Care Team Description 01/03/2020 Lab Visit [facility] Type 2 diabetes mellitus wit hout complication, without long-term current use of insulin ([facility]); [address] Essential hypertension; [place] [address] Paroxysmal atrial fibrillati on ([facility]); [phone] Immunity status testing Social History Tobacco Use [...] long-term current use sectio n. of insulin ([facility]) BASIC METABOLIC Routine 01/03/2020 9:17 AM Type 2 diabetes Res ults for this PANEL CDT mellitus without procedure a re in complication, without the re sults long-term current use sectio n. of insulin ([facility]) Essential hypertension HEMOGLOBIN, BLOOD Routine 01/03/2020 [...] Results Microalb/Creat Ratio (01/03/2020 11:20 AM CDT) [email or web address] Method Time Signature Albumin, 28.6 mg/L 01/03/2020 [facility] Urine, Random 4:36 PM CDT CENTRAL LAB Creatinine, 155 >20 mg/dL 01/03/2020 [facility] Urine, Random 4:36 PM CDT CENTRAL LAB Albumin/Creati 18 <30 mg/g 01/03/2020 [facility] nine Ratio, 4:36 PM CDT CENTRAL LAB Urine, Random Specimen Anatomical Collection Method Collection Time Receive d Time (Source) Location / / Volume Laterality Urine Non-blood 01/03/2020 11:20 01/03/2020 Collection / AM CDT 11:34 AM CDT Unknown Alisha Kimball MD LAB_1 Performing Organization Address City/State/ZIP Code Phon e Number [facility] C[facility]TRAL LAB [address] [phone] SARS-CoV-2 IgG Antibody (Inhouse) (01/03/2020 9:17 AM CDT) [email or web address] Method Time Signature [facility]-XoO4-Zy Negative Negative 01/03/2020 [facility] G Antibody 3:53 PM CDT LABORATORY Interp SARS CoV-2 0.01 01/03/2020 [facility] IgG Index 3:53 PM CDT LABORATORY SARS The magnitude of 01/03/2020 [facility] CoV-2-IgG the reported 3:53 PM CDT LABORATORY Index Index is not Comment indicative of the amount of antibody present in the patient sample. SARS The SARS-CoV-2 01/03/2020 [facility] CoV-2-IgG IgG assay is 3:53 PM CDT LABORATORY Comment 1 only for use under the Food and Drug Administration's Emergency Use Authorization (EUA). SARS Negative Results 01/03/2020 [facility] CoV-2-IgG do not rule out 3:53 PM CDT LABORATORY Comment 2 SARS-CoV-2 infection, particularly in those who have been in contact with the virus. Follow-up with a molecular diagnostic test should be considered to R/O infection. SARS Results from 01/03/2020 [facility] CoV-2-IgG antibody testing 3:53 PM CDT LABORATORY [...] MD LAB_1 Performing Organization Address City/[facility]/ZIP Code [facility] e Number [facility] [address] [place] [address] Hemoglobin, Blood (01/03/2020 9:17 AM CDT) P athologist Signature Hemoglobin 13.6 12.0 - 15.5 01/03/2020 [facility] g/dL 9:20 AM CDT LABORATORY Specimen Anatomical Collection Method / Collection Time Recei dawn Time (Source) Location / Volume Laterality Blood Venipuncture / 01/03/2020 9:17 01/03/2020 9:17 Unknown AM CDT AM CDT Alisha Kimball MD LAB_1 Performing Organization Address City/[facility] e Number [facility] [address] [place], [place] [phone] (ABNORMAL) ALT (SGPT) (01/03/2020 9:17 AM CDT) P athologist Signature ALT (SGPT) 56 (H) 0 - 55 U/L 01/03/2020 [facility] 3:07 PM CDT CENTRAL LAB Specimen Anatomical Collection Method / Collection Time Recei dawn Time (Source) Location / Volume Laterality Blood Venipuncture / 01/03/2020 9:17 01/03/2020 9:17 Unknown AM CDT AM CDT Alisha Kimball MD LAB_1 Performing Organization Address City/[facility]/ZIP Code Phon e Number [facility] CENTRAL LAB [address] [address] (ABNORMAL) Basic Metabolic Panel (01/03/2020 9:17 AM CDT) [facility] Method Time Signature Sodium 140 136 - 145 01/03/2020 [facility] mmol/L 3:07 PM CDT CENTRAL LAB Potassium 4.8 3.5 - 5.1 01/03/2020 [facility] mmol/L 3:07 PM CDT CENTRAL LAB Chloride 108 98 - 109 01/03/2020 [facility] mmol/L 3:07 PM CDT CENTRAL LAB CO2 21 20 - 29 01/03/2020 [facility] mmol/L 3:07 PM CDT CENTRAL LAB Anion Gap 11 7 - 16 01/03/2020 [facility] mmol/L 3:07 PM CDT CENTRAL LAB Calcium 9.4 8.4 - 01/03/2020 [facility] 10.4 3:07 PM CDT CENTRAL LAB mg/dL BUN 18 7 - 26 01/03/2020 [facility] mg/dL 3:07 PM CDT CENTRAL LAB Creatinine 0.90 0.55 - 01/03/2020 [facility] 1.02 3:07 PM CDT CENTRAL LAB mg/dL GFR, Estimated >60 >60 01/03/2020 [facility] mL/min/1. 3:07 PM CDT CENTRAL LAB 73m2 Glucose 132 (H) 70 - 100 01/03/2020 [facility] mg/dL 3:07 PM CDT CENTRAL LAB Comment: [...] MD LAB_1 Performing Organization Address City/[facility]/ZIP Code Phon e Number [facility] C[facility]AL LAB [address] [address] [address] [place] [address], [facility] [phone] (ABNORMAL) Lipid Panel and Direct LDL(If Needed) (01/03/2020 9:17 AM CDT) [facility] Method Time Signature Cholesterol 157 0 - 199 01/03/2020 [facility] mg/dL 3:07 PM CDT CENTRAL LAB Triglyceride 157 (H) <=149 01/03/2020 [facility] mg/dL 3:07 PM CDT CENTRAL LAB HDL Cholesterol 46 >=40 01/03/2020 [facility] mg/dL 3:07 PM CDT CENTRAL LAB LDL, Calculated 80 <130 01/03/2020 [facility] mg/dL 3:07 PM CDT CENTRAL LAB Non HDL Chol, 111 mg/dL 01/03/2020 [facility] Calculated 3:07 PM CDT CENTRAL LAB Cholesterol/HDL 3.4 01/03/2020 [facility] Ratio 3:07 PM CDT CENTRAL LAB Hours Fasting 12 01/03/2020 [facility] 3:07 PM CDT LABORATORY Specimen Anatomical Collection Method / Collection Time Recei dawn Time (Source) Location / Volume Laterality Blood Venipuncture / 01/03/2020 9:17 01/03/2020 9:17 Unknown AM CDT AM CDT Alisha Kimball MD LAB_1 Performing Organization Address City/State/ZIP Code Phon e Number [facility] CENTRAL LAB [address] [address] [facility] [address] [place] [address] [phone] (ABNORMAL) Hgb A1C (01/03/2020 9:17 AM CDT) [facility] Method Time Signature Hemoglobin A1C 7.6 (H) <=5.6 % 01/03/2020 [facility] 1:12 PM CDT CENTRAL LAB Specimen Anatomical Collection Method / Collection Time Recei dawn Time (Source) Location / Volume Laterality Blood Venipuncture / 01/03/2020 9:17 01/03/2020 9:17 Unknown AM CDT AM CDT Narrative [facility] CENTRAL LAB - 01/03/2020 1:12 PM CDT For patients not previously diagnosed with diabetes: 5.7-6.4%: Increased risk for diabetes 6.5% and greater: Diagnostic for diabete s For patients diagnosed with diabetes: <8.0%: Goal of therapy for ages 18-75 Clinicians may recommend a higher or low er goal for specific individuals. Alisha Kimball MD LAB_1 Performing Organization Address City/State/ZIP Code Phon e Number [facility] C[facility]AL LAB [address] [phone] documented in this encounter Visit Diagnoses Diagnosis Type 2 diabetes mellitus without complic ation, without long-term current use of insulin ([facility]) Essential hypertension ([facility]) Unspecified essential hypertension Paroxysmal atrial fibrillation ([facility]) Atrial fibrillation Immunity status testing Antibody response examination documented in this encounter Care Teams Show Jumping Instructor Relationship Specialty Start Date End Date Alisha Kimball MD PCP - General 07/08/05 [address] [place] [address] documented as of this encounter
--- OUTSIDE RECORDS SUMMARY | 2022-06-10 14:19 | XMS_ITS | Encounter Summary ---
:1955 Author Organization [facility] Address [address] [place] [address] Care Team Providers Name Role Phone Alisha Kimball MD Primary Care Provider Reason for Visit Reason Comments BP CHECK,NURSE SHOT,FLU Encounter Details Date Type Department Care Team Description 03/28/2019 Nursing Visit [facility] hypertension; Department Encounter for immunization [address] [place], [place] [address] Social History Tobacco [...] can you learn more? 1. Go to [email or web address] or [email or web address]. 2. Enter X567 in the search box. Current as of: January 23, 2018 Content Version: 12.0 ?? [id number] [employer]. Care instructions adapted under license by your healthcare professional. If you have questions about a medical condition or this instruction, always ask your healthcare professional. [employer] disclaims any warranty or liability for your [...] at goal today. Since normal at [facility], continue to watch. She will follow [...] disease documented in this encounter Care Teams Aerobics Instructor Relationship Specialty Start Date End Date Alisha Kimball MD PCP - General 07/08/05 [address] [place] [address] documented as of this encounter
--- OUTSIDE RECORDS SUMMARY | 2022-06-10 14:19 | XMS_ITS | Encounter Summary ---
:1955 Author Organization [facility] Address [address] [place] [address] Care Team Providers Name Role Phone Carroll Avalos MD Primary Care Provider Reason for Visit Reason Comments Refill metFORMIN XR (GLUCOPHAGE XR) 500 MG 24 hour release tablet; losartan (COZAAR) 50 MG tablet Encounter Details Date Type Department Care Team Description 02/01/2019 Telephone [facility] Carroll Avalos MD Refill (metFORMIN XR Practice [address] (GLUCOPHAGE XR) 500 MG [address] [place] [address] 24 hour release tablet; [place] [address] losartan (COZAAR) 50 MG [phone] tablet) Social History Tobacco Use Types Packs/Day [...] K check) Last qualifying visit: 12/12/2018 (in [facility]) Next scheduled visit: None Last ordered by CARROLL AVALOS K: 04/27/2018 (280 days ago) QTY: 90, Refills: 2, Sig: take 1 tablet by mouth every day (changed but equivalent) Cr: 1.02 mg/dL on 12/02/2018 K: 4.6 mEq/L on 12/02/2018 Powered by [employer], Reference: [id number], 02/01/2019 11:29:51 AM Luis Eduardo NOBLE: ARNOLD REFILL RN ([id number]) metFORMIN XR (GLUCOPHAGE XR) 500 MG 24 hour release tablet Metformin -> Refill x 6 months, qty: 360, refills: 1 (until due for an office visit) Last qualifying visit: 12/12/2018 (in [facility]) Next scheduled visit: None Last ordered by CARROLL AVALOS K: 10/24/2018 (100 days ago) QTY: 360, Refills: 0, Sig: take 4 tabletsby mouth daily with breakfast (changed but equivalent) Cr: 1.02 mg/dL on 12/02/2018 Powered by [employer]mod[employer], Reference: [id number], 02/01/2019 11:29:51 AM CDT, Pool: ARNOLD AMEZQUITA RN ([id number]) Mary De La O - 02/01/2019 11:27 AM CDT Patient needs this sent daniel today. documented in this encounter Plan of Treatment Not on filedocumented as of this encounter Visit Diagnoses Not on filedocumented in this encounter Care Teams Cnc Service Engineer Relationship Specialty Start Date End Date Carroll Avalos MD PCP - General 07/08/05 [address] [place] [address] documented as of this encounter
--- OUTSIDE RECORDS SUMMARY | 2022-06-10 14:19 | XMS_ITS | Encounter Summary ---
:1955 Author Organization [facility] Address [address] [place] [address] Care Team Providers Name Role Phone Alisha Kimball MD Primary Care Provider Reason for Visit Reason Comments COVID Screening Encounter Details Date Type Department Care Team Description 01/01/2020 Telephone [facility] Alisha Steinberg MD COVID Screening [address] [facility]. [address] [place] [address] [place], [place] [phone] (Wo rk) Social History Tobacco Use Types [...] Patient information Best number to contact patient: [phone] Reason for Call: COVID Screening/Testing Request In [...] on filedocumented in this encounter Care Teams Call Center Nurse Relationship Specialty Start Date End Date Alisha Kimball MD PCP - General 07/08/05 [address] [place] [address] documented as of this encounter
--- OUTSIDE RECORDS SUMMARY | 2022-06-10 14:19 | XMS_ITS | Encounter Summary ---
:1955 Author Organization [facility] Address [address] [place] [address] Care Team Providers Name Role Phone Alisha Kimball MD Primary Care Provider Reason for Visit Reason Comments FOLLOW-UP,HEART increased TANNER Encounter Details Date Type Department Care Team Description 08/09/2019 Office Visit [facility] Janice Gill (dyspnea on exertion) (Primary Dx); Cardiology EMILY Whipple Paroxysmal atrial fibrillati on ([facility]); [address] [facility] Essential hypertension; [place] [address] Hyperlipidemia, unspecified hyperlipidemia type [phone] Social History Tobacco Use Types Packs/Day Years Used Date Smoking Tobacco: Never Smokeless Tobacco: Never Alcohol Use Standard Drinks/Week Comments No 0 (1 standard drink = 0.6 oz pure alcoho l) Sex Assigned at Date Recorded Not on file documented as of this encounter Last Filed Vital Signs Vital Sign Reading Time Taken Comments Blood Pressure 147/89 08/09/2019 7:34 AM IT COMPLIANCE MANAGER Pulse 68 08/09/2019 7:34 AM IT COMPLIANCE MANAGER Temperature - - Respiratory Rate 15 08/09/2019 7:34 AM IT COMPLIANCE MANAGER Oxygen Saturation 96% 08/09/2019 7:34 AM IT COMPLIANCE MANAGER Inhaled Oxygen Concentration - - Weight 81.2 kg (179 lb) 08/09/2019 7:34 AM IT COMPLIANCE MANAGER Height 163.8 cm (5' 4.5) 08/09/2019 7:34 AM IT COMPLIANCE MANAGER Body Mass Index 30.25 08/09/2019 7:34 AM IT COMPLIANCE MANAGER documented in this encounter Patient Instructions [...] do not hesitate to contact us at [phone] with any questions or concerns. Regards, Janice Gill PA-C COMPLIANCE MANAGER documented in this encounter Progress Notes Janice [...] for rate control. She is on Eliquisfor [id number] score of 3. # HTN: Mildly elevated [...] to contact me. EM[facility] COMPLIANCE MANAGER documented in this encounter Plan of Treatment Not on filedocumented as of this encounter Results TSH with Free T4 (if TSH Abnormal) (04/11/2020 8:48 AM CDT) P athologist Signature TSH, Reflex 3.02 0.30 - 04/11/2020 [facility] 4.50 11:53 AM CDT CENTRAL LAB uIU/mL Specimen Anatomical Collection Method / Collection Time Recei dawn Time (Source) Location / Volume Laterality Blood Venipuncture / 04/11/2020 8:48 04/11/2020 8:48 Unknown AM CDT AM CDT Narrative [facility] CENTRAL LAB - 04/11/2020 11:53 AM CDT Lab will automatically reflex to Free T4 when TSH results are <0.30 uIU/mL or >4.50 mIU/mL. Janice Gill PA-C LAB_1 Performing Organization Address City/State/ZIP Code Phon e Number [facility] [place] [address] [phone] documented in this encounter Visit Diagnoses Diagnosis TANNER (dyspnea on exertion) - Primary Other dyspnea and respiratory abnormalit y Paroxysmal atrial fibrillation (HRC) Atrial fibrillation Essential hypertension (HRC) Unspecified essential hypertension Hyperlipidemia, unspecified hyperlipidem ia type ([facility]) documented in this encounter Care Teams Amusement Machine Mechanic Relationship Specialty Start Date End Date Alisha Kimball MD PCP - General 07/08/05 [address] [place] [address] documented as of this encounter
--- OUTSIDE RECORDS SUMMARY | 2022-06-10 14:19 | XMS_ITS | Encounter Summary ---
:1955 Author Organization [facility] Address [address] [place] [address] Care Team Providers Name Role Phone Alisha Kimball MD Primary Care Provider Encounter Details Date Type Department Care Team Description 08/18/2019 Office Visit [facility] Dyspn ea on exertion Cardiac Non-Invasive Lab (Primary Dx) [address] [place], [place] [id number] Social History Tobacco Use Types Packs/Day Years [...] you have not received your test results. HOTHERAPIST documented in this encounter Progress Notes Fernando [...] (FLONASE) 50 MCG/ACT nasal solution Place 1 [place] into both nostrils daily. decreaseto 1 spray [...] up with Kaley Gill Test done with printer apprentice present: no 22 gauge IV catheter inserted [...] recommendations. Angie Fong RN 08/28/2019, 2:52 PM HOTHERAPIST documented in this encounter Plan of Treatment Not on filedocumented as of this encounter Procedures Procedure Name Priority Date/Time Associated Comments Diagnosis EJECTION FRACTION Routine 08/18/2019 8:14 AM Resu lts for this PSYCHOTHERAPIST procedure are i n the results section. CARDIAC STRESS Routine 08/18/2019 8:14 AM Dyspnea on Results for this ECHOCARDIOGRAM PSYCHOTHERAPIST exertion procedure are in the results section. documented in this encounter Results EJECTION FRACTION (08/18/2019 8:14 AM PSYCHOTHERAPIST) P athologist Signature EF 60 % PROSOLV EF test type ECHO PROSOLV Specimen (Source) Anatomical Collection Method Collection Time Re ceived Time Location / / Volume Laterality 08/18/2019 8:14 AM PSYCHOTHERAPIST Jaince Gill PA-C [facility] CATERER'S AIDE/RH Performing Organization Address City/State/ZIP Code Phon e Number [facility] [address] [place] [address] CARDIAC TREADMILL STRESS ECHOCARDIOGRAM (08/18/2019 8:14 AM PSYCHOTHERAPIST) Specimen (Source) Anatomical Collection Method Collection Time Re ceived Time Location / / Volume Laterality 08/18/2019 8:14 AM PSYCHOTHERAPIST Narrative [facility] - 08/18/2019 10:40 AM PSYCHOTHERAPIST Contrast:Optison 3.0 ml ?Contrast Allergy:NO Indication: SOB [...] 133 85.8 % [place] [id number] = Resting BP: 140 / 88 Peak [...] Phon e Number [facility] [address] [place] [address] documented in this encounter Visit Diagnoses Diagnosis Dyspnea on exertion - Primary Other dyspnea and respiratory abnormalit y documented in this encounter Care Teams Boat Tester Relationship Specialty Start Date End Date Alisha Kimball MD PCP - General 07/08/05 [address] [place] [address] documented as of this encounter
--- OUTSIDE RECORDS SUMMARY | 2022-06-10 14:19 | XMS_ITS | Encounter Summary ---
:1955 Author Organization [facility] Address [address] [place] [address] Care Team Providers Name Role Phone Alisha Kimball MD Primary Care Provider Reason for Visit Reason Comments COVID Screening Encounter Details Date Type Department Care Team Description [facility] [address] [facility]. [address] [place] [address] [place], [place] [phone] (Wo rk) Social History Tobacco Use Types [...] Patient information Best number to contact patient: [phone] Reason for Call: COVID Screening/Testing Request In [...] on filedocumented in this encounter Care Teams Merchandise Director Relationship Specialty Start Date End Date Alisha Kimball MD PCP - General 07/08/05 [address] [place] [address] documented as of this encounter
--- OUTSIDE RECORDS SUMMARY | 2022-06-10 14:19 | XMS_ITS | Encounter Summary ---
:1955 Author Organization [employer] Address [address] [place] [address] Care Team Providers Name Role Phone Alisha Kimball MD Primary Care Provider Reason for Referral Procedure/Equipment (Routine) - Incomplete Specialty Diagnoses / Procedures Referred By Contact Refer red To Contact Diagnoses Screening for osteoporosis Alisha Kimball MD Procedures DEXA Bone Density Spine/Hip [address] [place] [address] Referral ID Status Reason Start Date Expiration Date Visits V isits Requested Authorized [id number] Incomplete 01/03/2020 04/03/2021 1 1 Reason for Visit Reason Comments ROUTINE HEALTH MAINTENANCE Welcome To Medicare FOLLOW-UP,DIABETES MEDICATION CHECK SKIN LESION left elbow NOISES IN THE EAR ADVANCE DIRECTIVES DISCUSSION pt has one at home Encounter Details Date Type Department Care Team Description 01/03/2020 Office Visit [place] Alisha Bui, Welcome to Medicare preventive visit (Primary Dx); Practice MD Encounter for routine adult health exami nation without abnormal findings; [address] Type 2 diabetes mellitus without complic ation, without long-term current use of insulin (HRC); [place] [address] [place] [address] Essential hypertension; [phone] Paroxysmal atri al fibrillation (HRC); (Work) Screening [...] can you learn more? 1. Go to [email or web address] or [email or web address]/[email or web address]. 2. Enter Y074 in the search box. Current as of: February 22, 2019?Content Version: 12.4 ?? [id number] [employer]. Care instructions adapted under license by your healthcare professional. If you have questions abouta medical condition or this instruction, always ask your healthcare professional. [employer], [facility] disclaims any warranty or liability for your [...] can you learn more? 1. Go to [email or web address] or Exotel/Advent Solar. 2. Enter K859 in the search box. Current as of: February 22, 2019?Content Version: 12.4 ?? [employer]. Care instructions adapted under license by your healthcare professional. If you have questions abouta medical condition or this instruction, always ask your healthcare professional. [employer] disclaims any warranty or liability for your [...] doctor may recommend that you use an yiwz-iel-qmwjuuo treatment. These include salicylic acid or duct [...] make walking more comfortable. ?? Take an hwjn-vya-qhxkrbf pain medicine, such as acetaminophen (Tylenol), ibuprofen [...] can you learn more? 1. Go to [email or web address] or Exotel/Wallarmlibrary. 2. Enter K886 in the search box. Current as of: May 03, 2019?Content Version: 12.4 ?? [employer]. Care instructions adapted under license by your healthcare professional. If you have questions abouta medical condition or this instruction, always ask your healthcare professional. [employer] disclaims any warranty or liability for your [...] covid-19 in July when she was in [place]. Wart left elbow. No treatment. Patient accompanied [...] IgG Antibody (Inhouse) 8. Common wart B07.8 64340 Destruc Benign Lesions; Up 14 Counseling and [...] Volume Narrative 02/22/2020 12:58 PM CDT Indication:Screening Production Crew Supervisor and Model of Instrument: Amplifinity Demographics Age: 65 y.o. Gender: female Height [...] Alcohol 3units or more per day (on [employer] Game [employer]):No Currently smoking:No Other pertinent history: Dual-X-ray Absorptiometry [...] IgG Antibody (Inhouse) (01/03/2020 9:17 AM CDT) [facility] Method Time Signature RORD-TrW5-Fk Negative Negative 01/03/2020 [facility] G Antibody 3:53 PM CDT LABORATORY Interp SARS CoV-2 0.01 01/03/2020 [facility] IgG Index 3:53 PM CDT LABORATORY SARS The magnitude of 01/03/2020 [facility] CoV-2-IgG the reported 3:53 PM CDT LABORATORY Index Index is not Comment indicative of the amount of antibody present in the patient sample. SARS The SARS-CoV-2 01/03/2020 [facility] CoV-2-IgG IgG assay is 3:53 PM CDT LABORATORY Comment 1 only for use under the Food and Drug Administration's Emergency Use Authorization (EUA). SARS Negative Results 01/03/2020 [facility] CoV-2-IgG do not rule out 3:53 PM CDT LABORATORY Comment 2 SARS-CoV-2 infection, particularly in those who have been in contact with the virus. Follow-up with a molecular diagnostic test should be considered to R/O infection. SARS Results from 01/03/2020 [facility] CoV-2-IgG antibody testing 3:53 PM CDT LABORATORY [...] Organization Address City/State/ZIP Code Phon e Number [facility] [address] [place] [address] Hemoglobin, Blood (01/03/2020 9:17 AM CDT) athologist Signature Hemoglobin 13.6 12.0 - 15.5 01/03/2020 [facility] g/dL 9:20 AM CDT LABORATORY Specimen Anatomical Collection Method / Collection Time Recei dawn Time (Source) Location / Volume Laterality Blood Venipuncture / 01/03/2020 9:17 01/03/2020 9:17 Unknown AM CDT AM CDT Alisha Kimball MD LAB_1 Performing Organization Address City/[facility]/ZIP Code Phon e Number [facility] [address] [place] [address] (ABNORMAL) ALT (SGPT) (01/03/2020 9:17 AM CDT) [...] Organization Address City/State/ZIP Code Phon e Number [facility] CENTRAL LAB [address] [address] (ABNORMAL) Basic Metabolic Panel (01/03/2020 9:17 AM CDT) [facility] Method Time Signature Sodium 140 136 - [...] CENTRAL LAB Calcium 9.4 8.4 - 01/03/2020 [facility] 10.4 3:07 PM CDT CENTRAL LAB mg/dL BUN 18 7 - 26 01/03/2020 [facility] mg/dL 3:07 PM CDT CENTRAL LAB Creatinine 0.90 0.55 - 01/03/2020 [facility] 1.02 3:07 PM CDT CENTRAL LAB mg/dL [...] Organization Address City/State/ZIP Code Phon e Number [facility] CENTRAL LAB [address] [address] [facility] [address] [place], [place] [id number] [place] [address] (ABNORMAL) Lipid Panel and Direct LDL(If Needed) (01/03/2020 9:17 AM CDT) [facility] Method Time Signature Cholesterol 157 0 - 199 01/03/2020 [facility] mg/dL 3:07 PM CDT CENTRAL LAB Triglyceride 157 (H) <=149 01/03/2020 [facility] mg/dL 3:07 PM CDT CENTRAL LAB HDL Cholesterol 46 >=40 01/03/2020 [facility] mg/dL 3:07 PM CDT CENTRAL LAB LDL, Calculated 80 <130 01/03/2020 [facility] mg/dL 3:07 PM CDT CENTRAL LAB Non HDL Chol, 111 mg/dL 01/03/2020 [facility] Calculated 3:07 PM CDT CENTRAL LAB Cholesterol/HDL 3.4 01/03/2020 [facility] Ratio 3:07 PM CDT CENTRAL LAB Hours Fasting 12 01/03/2020 [facility] 3:07 PM CDT LABORATORY Specimen Anatomical Collection Method / Collection Time Recei dawn Time (Source) Location / Volume Laterality Blood Venipuncture / 01/03/2020 9:17 01/03/2020 9:17 Unknown AM CDT AM CDT Alisha Kimball MD LAB_1 Performing Organization Address City/[facility] Phon e Number [facility] CENTRAL LAB [address] [address] [facility] [address] [place] [address] (ABNORMAL) Hgb A1C (01/03/2020 9:17 AM CDT) [facility] Method Time Signature Hemoglobin A1C 7.6 (H) <=5.6 % 01/03/2020 [facility] 1:12 PM CDT CENTRAL LAB Specimen Anatomical Collection Method / Collection Time Recei dawn Time (Source) Location / Volume Laterality Blood Venipuncture / 01/03/2020 9:17 01/03/2020 9:17 Unknown AM CDT AM CDT Narrative [facility] C[facility]AL [facility] - 01/03/2020 1:12 PM CDT For patients not previously diagnosed with diabetes: 5.7-6.4%: Increased risk for diabetes 6.5% and greater: Diagnostic for diabete s For patients diagnosed with diabetes: <8.0%: Goal of therapy for ages 18-75 Clinicians may recommend a higher or low er goal for specific individuals. Alisha Kimball MD LAB_1 Performing Organization Address City/State/ZIP Code Phon e Number [facility] CENTRAL LAB [address] [place] [address] documented in this encounter Visit Diagnoses Diagnosis [...] osteoporosis documented in this encounter Care Teams Living Coach Relationship Specialty Start Date End Date Alisha Kimball MD PCP - General 07/08/05 [address] [place] [address] documented as of this encounter
--- OUTSIDE RECORDS SUMMARY | 2022-06-10 14:19 | XMS_ITS | Encounter Summary ---
:1955 Author Organization [facility] Address [address], [place] [address] Care Team Providers Name Role Phone Alisha Kimball MD Primary Care Provider Reason for Visit Reason Comments COVID Screening Encounter Details Date Type Department Care Team Description 01/01/2020 Telephone [facility] Alisha Steinberg MD COVID Screening [address] [facility]. [address] [place] [address] [place] [address] (Wo rk) Social History Tobacco [...] Patient information Best number to contact patient: [phone] Reason for Call: COVID Screening/Testing Request In [...] on filedocumented in this encounter Care Teams Breastfeeding Educator Relationship Specialty Start Date End Date Alisha Kimball MD PCP - General 07/08/05 [address] [place] [address] documented as of this encounter
--- OUTSIDE RECORDS SUMMARY | 2022-06-10 14:19 | XMS_ITS | Encounter Summary ---
:1955 Author Organization [employer] Address [address] [place] [address] Care Team Providers Name Role Phone Carroll Kimball MD Primary Care Provider Reason for Visit Reason Comments Refill ELIQUIS 5 MG tablet [Pharmac y Med Name: ELIQUIS 5 MG TABLET] Encounter Details Date Type Department Care Team Description 06/15/2019 Refill [facility] Carroll Kimball MD Refill (ELIQUIS 5 MG Practice [address] tablet [Pharmacy Med [address] [place] [address] Name: ELIQUIS 5 [place] [address] TABLET]) [phone] Social History Tobacco Use Types Packs/Day Years [...] mouth twice a day (unchanged) Powered by ePropertyData, Reference: [id number], 06/15/2019 10:21:58 AM SKEIN DYER, Pool: ARNOLD REFILL CAITLYN ([id number]) N DYER documented in this encounter Plan of Treatment Not on filedocumented as of this encounter Visit Diagnoses Diagnosis Paroxysmal atrial fibrillation (HRC) Atrial fibrillation documented in this encounter Care Teams Truck And Transport Mechanic Relationship Specialty Start Date End Date Carroll Kimball MD PCP - General 07/08/05 [address] [place] [address] documented as of this encounter
--- OUTSIDE RECORDS SUMMARY | 2022-06-10 14:19 | XMS_ITS | Encounter Summary ---
:1955 Author Organization [employer] Address [address] [place] [address] Care Team Providers Name Role Phone Alisha Kimball MD Primary Care Provider Reason for Visit Reason Comments COVID Screening Encounter Details Date Type Department Care Team Description [facility]/09[facility]2019 [facility] [address] [facility]. [address] [place] [address] [place], [place] [phone] (Wo rk) Social History Tobacco Use Types [...] Patient information Best number to contact patient: [phone] Reason for Visit: Other: F/U 1 YEAR [...] on filedocumented in this encounter Care Teams Hydroelectric Machinery Mechanic Helper Relationship Specialty Start Date End Date Alisha Kimball MD PCP - General 07/08/05 [address] [place] [address] documented as of this encounter
--- OUTSIDE RECORDS SUMMARY | 2022-06-10 14:19 | XMS_ITS | Encounter Summary ---
:1955 Author Organization [facility] Address [address] [address] Care Team Providers Name Role Phone Alisha Kimball MD Primary Care Provider Reason for Visit Reason Comments Dental Hygiene cc none Encounter Details Date Type Department Care Team Description 02/09/2019 Office Visit [facility] Regina Guaman Dental Hygiene (cc Dentistry [address] [facility] none) [address] [place] [phone] Social History Tobacco Use Types Packs/Day Years [...] induced documented in this encounter Care Teams [facility] Relationship Specialty Start Date End Date Ailsha Kimball MD PCP - General 07/08/05 [address] [place] [address] documented as of this encounter
--- OUTSIDE RECORDS SUMMARY | 2022-06-10 14:19 | XMS_ITS | Encounter Summary ---
:1955 Author Organization [facility] Address [address] [address] Care Team Providers Name Role Phone Carroll Avalos MD Primary Care Provider Reason for Visit Reason Comments Refill ELIQUIS 5 MG tablet Encounter Details Date Type Department Care Team Description 06/15/2019 Telephone [facility] Carroll Avalos MD Refill (ELIQUIS 5 MG Practice [address] tablet) [address] [place] [address] [place], [place] [phone] Social History Tobacco Use Types Packs/Day Years [...] be delegated. Last qualifying visit: 12/12/2018 (in [facility]) Next scheduled visit: None Last ordered by CARROLL AVALOS K: 06/16/2018 (364 days ago) QTY: 180, Refills: 3, Sig: take 1 tablet by mouth twice a day (changed but equivalent) Powered by dscovered, Reference: [id number], 06/15/2019 10:51:31 AM Luis Eduardo COREY: ARNOLD AMEZQUITA RN ([id number]) Rocio Watts - 06/15/2019 10:49 AM CST Patient is leaving [facility] on 06/18/19 thru 08/05/18 and currently does not have enough medication to get her thru 08/05/19. RMATICS APPLICATION ANALYST documented in this encounter Plan of Treatment Not on filedocumented as of this encounter Visit Diagnoses Diagnosis Paroxysmal atrial fibrillation (HRC) Atrial fibrillation documented in this encounter Care Teams Monument Erector Relationship Specialty Start Date End Date Carroll Avalos MD PCP - General 07/08/[address] [place] [address] documented as of this encounter
--- OUTSIDE RECORDS SUMMARY | 2022-06-10 14:19 | XMS_ITS | Encounter Summary ---
:1955 Author Organization [employer] Address [address] [address] Care Team Providers Name Role Phone Carroll Kimball MD Primary Care Provider Reason for Visit Reason Comments Refill metFORMIN XR (GLUCOPHAGE XR) 500 MG 24 hour release tablet [Pharmacy Med Name: METFORMIN HCL ER 500 MG TABL ET] Encounter Details Date Type Department Care Team Description 07/03/2019 Refill [facility] Carroll Kimball MD Refill (metFORMIN XR Practice [address] (GLUCOPHAGE XR) 500 MG [address] [place] [address] 24 hour release tablet [place], [place] [id number] [Pharmacy Med Name: [phone] METFORMIN HCL ER 500 MG TABLET]) Social [...] CST per standing order Erlinda Dickerson RN IZATION MANAGEMENT MANAGER Interface, Out Surescripts Prov Query - 07/03/2019 1:51 AM CST metFORMIN XR (GLUCOPHAGE XR) 500 MG 24 hour release tablet [Pharmacy Med Name: METFORMIN HCL ER 500 MG TABLET] Metformin -> Refill x 3 months (courtesy refill. overdue for an office visit) Last qualifying visit: 12/12/2018 (in [facility]) Next scheduled visit: None Last ordered by CARROLL KIMBALL: 02/01/2019 (152 days ago) QTY: 360, Refills: 1, Sig: take 4 tabletsby mouth daily with breakfast. (unchanged) Cr: 1.02 mg/dL on 12/02/2018 Powered by IntroFly, Reference: [id number], 07/03/2019 1:51:36 AM LEORA, Pool: ARNOLD REFILL CAITLYN ([id number]) IZATION MANAGEMENT MANAGER documented in this encounter Plan of Treatment Not on filedocumented as of this encounter Visit Diagnoses Not on filedocumented in this encounter Care Teams Wax Pattern Coater Relationship Specialty Start Date End Date Carroll Kimball MD PCP - General 07/08/05 [address] [place] [address] documented as of this encounter
--- OUTSIDE RECORDS SUMMARY | 2022-06-10 14:19 | XMS_ITS | Encounter Summary ---
:1955 Author Organization [facility] Address [address] [place] [address] Care Team Providers Name Role Phone Alisha Kimball MD Primary Care Provider Reason for Referral Procedure/Equipment (Routine) - Incomplete Specialty Diagnoses / Procedures Referred By Contact Refer red To Contact Procedures Alisha Kimball MD MM Mammogram Screening [facility] [address] [place] [address] Referral ID Status Reason Start Date Expiration Date Visits V isits Requested Authorized [id number] Incomplete 02/10/2019 05/11/2020 1 1 Reason for Visit Procedure/Equipment (Routine) - Incomplete Specialty Diagnoses / Procedures Referred By Contact Refer red To Contact Procedures Alisha Kimball MD MM Mammogram Screening [facility] [address] [place] [address] Referral ID Status Reason Start Date Expiration Date Visits V isits Requested Authorized [id number] Incomplete 02/10/2019 05/11/2020 1 1 Encounter Details Date Type Department Care Team Description 02/10/2019 Ancillary Procedure [facility] Mammography [address] [facility] [place] [address] Social History Tobacco Use Types [...] filedocumented in this encounter Care Teams Global Security Architect Relationship Specialty Start Date End Date Alisha Kimball MD PCP - General 07/08/05 [address] [place] [address] documented as of this encounter
--- OUTSIDE RECORDS SUMMARY | 2022-06-10 14:19 | XMS_ITS | Encounter Summary ---
:1955 Author Organization [employer] Address [address] [place] [address] Care Team Providers Name Role Phone Alisha Kimball MD Primary Care Provider Reason for Visit Reason Comments Medication Questions Encounter Details Date Type Department Care Team Description 07/01/2019 Telephone [facility] Alisha Kimball MD Medication Questions Practice [address] [place] [address] [place], [place] [id number] [phone] Social History Tobacco Use Types Packs/Day Years Used Date Smoking Tobacco: Never Smokeless Tobacco: Never Alcohol Use Standard Drinks/Week Comments No 0 (1 standard drink = 0.6 oz pure alcoho l) Sex Assigned at Date Recorded Not on file documented as of this encounter Nursing Notes Anitra Bustillos CMA - 07/03/2019 12:05 PM CST Pt informed and agreed w/ plan. RESSOR ASSEMBLER Alisha Kimball MD - 07/03/2019 11:21 AM CST OK. See orders. Call with problems or if increased palpitations. Thanks! Alisha Kimball MD RESSOR ASSEMBLER Anitra Bustillos CMA - 07/03/2019 9:53 AM CST Pt states she would like to try the atenolol please. Pended. RESSOR ASSEMBLER Alisha Kimball MD - 07/03/2019 8:48 AM CST If I change her to metoprolol tartrate, will need to take it twice daily. The atenolol will be once daily. Does she have a preference? Thanks! Alisha Kimball MD RESSOR ASSEMBLER Marysol Edward - 07/01/2019 3:54 PM CST ALTERNATIVE REQUESTED:PT PAYING $36 FOR METOP. PT REQUESTING LOWER OUT OF POCKET COST ATENOLOL 100 MG TABLET $9 - METOPROLOL TARTRATE 100 MG TAB $9 RESSOR ASSEMBLER documented in this encounter Plan of Treatment Not on filedocumented as of this encounter Visit Diagnoses Diagnosis Paroxysmal atrial fibrillation (HRC) - P rimary Atrial fibrillation documented in this encounter Care Teams Car Repairer Pullman Relationship Specialty Start Date End Date Alisha Kimball MD PCP - General 07/08/05 [address] [place] [address] documented as of this encounter
--- OUTSIDE RECORDS SUMMARY | 2022-06-10 14:19 | XMS_ITS | Encounter Summary ---
:1955 Author Organization [employer] Address [address], [place] [address] Care Team Providers Name Role Phone Alisha Kimball MD Primary Care Provider Reason for Visit Reason Comments Dental Hygiene cc none Encounter Details Date Type Department Care Team Description 06/13/2019 Office Visit [place] Regina Looney Dental Hygiene (cc Dentistry [address] [facility] none) [address] [place] [phone] Social History Tobacco Use Types Packs/Day Years Used Date Smoking Tobacco: Never Smokeless Tobacco: Never Alcohol Use Standard Drinks/Week Comments No 0 (1 standard drink = 0.6 oz pure alcoho l) Sex Assigned at Date Recorded Not on file documented as of this encounter Last Filed Vital Signs Vital Sign Reading Time Taken Comments Blood Pressure - - Pulse 108 06/13/2019 9:15 AM STAFFING BRANCH MANAGER Temperature - - Respiratory Rate - [...] next visit! Thank you for choosing [facility]. FING BRANCH MANAGER documented in this encounter Progress Notes Jamaal [...] in replacing missing teeth --End of Note-- FING BRANCH MANAGER Jamaal Cleveland DDS - 06/13/2019 9:10 AM [...] Guaman 06/13/2019, 9:49 AM --End of Note-- FING BRANCH MANAGER documented in this encounter Plan of Treatment Not on filedocumented as of this encounter Procedures Procedure Name Priority Date/Time Associated Diagnosis Comme nts PERIODIC ORAL EVALUATION Routine 06/13/2019 9:10 AM STAFFING BRANCH MANAGER Locali zed gingivitis PROPHYLAXIS-ADULT RECALL Routine 06/13/2019 9:10 AM STAFFING BRANCH MANAGER Locali zed gingivitis documented in this encounter Visit Diagnoses Diagnosis Localized gingivitis - Primary documented in this encounter Care Teams Division Sergeant Relationship Specialty Start Date End Date Alisha Kimball MD PCP - General 07/08/05 [address] [place] [address] documented as of this encounter
--- OUTSIDE RECORDS SUMMARY | 2022-06-10 14:20 | XMS_ITS | Encounter Summary ---
:1955 Author Organization [employer] Address [address] [place] [address] Care Team Providers Name Role Phone Alisha Kimball MD Primary Care Provider Encounter Details Date Type Department Care Team Description 12/16/2018 [facility] Type 2 diabetes mellitus [address] [facility] without complication, [place], [place] [address] without long-term current [phone] use of insulin (HRC) Social History Tobacco Use Types Packs/Day Years Used Date Smoking Tobacco: Never Smokeless Tobacco: Never Alcohol Use Standard Drinks/Week Comments No 0 (1 standard drink = 0.6 oz pure alcoho l) Sex Assigned at Date Recorded Not on file documented as of this encounter Progress Notes Alisha Kimball MD - 12/16/2018 8:00 AM CDT Addended by: ALISHA KIMBALL on: 12/19/2018 09:32 AM Modules accepted: [...] (ABNORMAL) Microalbumin/Creatinine Ratio (12/16/2018 7:55 AM CDT) [facility] Method Time Signature Albumin, 64.8 mg/L 12/16/[address] Development Urine, Random 4:17 PM CDT CENTRAL LAB Creatinine, 209 >20 mg/dL [facility]/16[facility] Urine, Random 4:17 PM CDT CENTRAL LAB Albumin/Creati 31 (H) <30 mg/g 12/16/2018 [facility] nine Ratio, 4:17 PM CDT CENTRAL LAB Urine, Random Specimen Anatomical Collection Method Collection Time Receive d Time (Source) Location / / Volume Laterality Urine,random 12/16/2018 7:55 AM 9 7:55 CDT AM CDT Alisha Kimball MD LAB_1 Performing Organization Address City/State/ZIP Code Phon e Number [facility] CENTRAL LAB [address] [phone] documented in this encounter Visit Diagnoses Diagnosis Type 2 diabetes mellitus without complic ation, without long-term current use of insulin (HRC) documented in this encounter Care Teams Molding Plasterer Relationship Specialty Start Date End Date Alisha Kimball MD PCP - General 07/08/05 [address] [place] [address] documented as of this encounter
--- OUTSIDE RECORDS SUMMARY | 2022-06-10 14:20 | XMS_ITS | Encounter Summary ---
:1955 Author Organization [email or web address] Address [address] [place] [address] Care Team Providers Name Role Phone Alisha Kimball MD Primary Care Provider Reason for Visit Reason Comments Lab Orders Needed Encounter Details Date Type Department Care Team Description [facility]/14[facility]2018 [facility] [address] [place] [address] [place], [place] [phone] (Wo rk) Social History Tobacco Use Types [...] outside of our family of care? (Ex. [facility]) No Orders - All Orders [Appt Center: If this call is after 3 p.m., communicate to patient: If we are not able to get back to you by the end of the day and your symptoms worsen please contact the Careline at [phone] OR at .] What order (Lab, Radiology, Specialty, DME, etc) is being requested? Pt requesting A1C labs prior to [facility] on 12/12 Why is this order being requested? Pt wanting to go over lab results at [facility] Have you been seen recently for [...] Basic Metabolic Panel (12/02/2018 7:34 AM CDT) [facility] Method Time Signature Sodium 138 136 - 145 12/02/2018 [facility] mmol/L 11:30 AM CDT [facility] Potassium 4.6 3.5 - 5.1 12/02/2018 [facility] mmol/L 11:30 AM CDT [facility] Chloride 104 98 - 109 12/02/2018 [facility] mmol/L 11:30 AM CDT [facility] CO2 26 20 - 29 12/02/2018 [facility] mmol/L 11:30 AM CDT [facility]AL [facility] Anion Gap 8 7 - 16 12/02/2018 [facility] mmol/L 11:30 AM CDT [facility] Calcium 10.0 8.4 - 12/02/2018 [facility] 10.4 11:30 AM CDT C[facility]AL [facility] mg/dL BUN 28 (H) 7 - 26 12/02/2018 [facility] mg/dL 11:30 AM CDT C[facility]AL [facility] Creatinine 1.02 0.55 - 12/02/2018 [facility] 1.02 11:30 AM CDT CEN[facility]AL LAB mg/dL GFR, Estimated 58 (L) >60 12/02/2018 [facility] mL/min/1. 11:30 AM CDT CENTRAL LAB 73m2 GFR, Est If >60 >60 12/02/2018 [facility] mL/min/1. 11:30 AM CDT CENTRAL LAB Faroese 73m2 Glucose 108 (H) 70 - 100 12/02/2018 [facility] mg/dL 11:30 AM CDT [facility]AL [facility] Comment: The given reference range is fo r the fasting state. Non-fasting reference range for glucose is 70 - 180 mg/dL. Hours Fasting 12 12/02/2018 11:30 AM CDT [facility] Specimen Anatomical Collection Method / Collection Time Recei dawn Time (Source) Location / Volume Laterality Blood Venipuncture / 12/02/2018 7:34 12/02/2018 7:34 Unknown AM CDT AM CDT Narrative [facility] CENTRAL LAB - 12/02/2018 11:30 [...] Organization Address City/State/ZIP Code Phon e Number [facility] CENTRAL LAB [address] [address] [facility] [address] [place] [address] Lipid Panel and Direct LDL(If Needed) (12/02/2018 7:34 AM CDT) [facility] gist Method Time Signature Cholesterol 167 0 - 199 12/02/2018 [facility] mg/dL 11:30 AM CDT CEN[facility]AL LAB Triglyceride 146 <=149 12/02/2018 [facility] mg/dL 11:30 AM CDT [facility] HDL Cholesterol 44 >=40 12/02/2018 [facility] mg/dL 11:30 AM CDT [facility] LDL, Calculated 94 <130 12/02/2018 [facility] mg/dL 11:30 AM CDT C[facility]AL [facility] Non HDL Chol, 123 <=159 12/02/2018 [facility] Calculated mg/dL 11:30 AM CDT C[facility]AL [facility] Cholesterol/HDL 3.8 12/02/2018 [facility] Ratio 11:30 AM CDT [facility] Hours Fasting 12 12/02/2018 [facility] 11:30 AM CDT Specimen Anatomical Collection Method / Collection Time Recei dawn Time (Source) Location / Volume Laterality Blood Venipuncture / 12/02/2018 7:34 12/02/2018 7:34 Unknown AM CDT AM CDT Alisha Kimball MD LAB_1 Performing Organization Address [facility] Phon e Number [facility] [address] [address] [facility] [address] [place] [address], [facility] (ABNORMAL) Hgb A1C (12/02/2018 7:34 AM CDT) [facility] gist Method Time Signature Hemoglobin A1C 6.7 (H) <=5.6 % 12/02/2018 [facility] 12:44 PM CDT CENTRAL LAB Specimen Anatomical Collection Method / Collection Time Recei dawn Time (Source) Location / Volume Laterality Blood Venipuncture / 12/02/2018 7:34 12/02/2018 7:34 Unknown AM CDT AM CDT Narrative [facility] - 12/02/2018 12:44 PM CDT For patients not previously diagnosed with diabetes: 5.7-6.4%: Increased risk for diabetes 6.5% and greater: Diagnostic for diabete s For patients diagnosed with diabetes: <8.0%: Goal of therapy for ages 18-75 Clinicians may recommend a higher or low er goal for specific individuals. Alisha Kimball MD LAB_1 Performing Organization Address City/[facility] Phon e Number [facility] [address] [address] documented in this encounter Visit Diagnoses Diagnosis Type 2 diabetes mellitus without complic ation, without long-term current use of insulin (HRC) - Primary Screening for diabetes mellitus documented in this encounter Care Teams Termite Inspector Relationship Specialty Start Date End Date Alisha Kimball MD PCP - General 07/08/[address] [place] [address] documented as of this encounter
--- OUTSIDE RECORDS SUMMARY | 2022-06-10 14:20 | XMS_ITS | Encounter Summary ---
:1955 Author Organization [employer] [facility] Address [address] [place] [address] Care Team Providers Name Role Phone Alisha Kimball MD Primary Care Provider Encounter Details Date Type Department Care Team Description 12/02/2018 Lab Visit [facility] Type 2 diabetes mellitus [address] [facility] without complication, [place], [place] [address] without long-term current [phone] use of insulin (HRC) Social History Tobacco [...] Basic Metabolic Panel (12/02/2018 7:34 AM CDT) [facility] Method Time Signature Sodium 138 136 - 145 12/02/2018 [facility] mmol/L 11:30 AM T CENTRAL LAB Potassium 4.6 3.5 - 5.1 12/02/2018 [facility] mmol/L 11:30 AM CDT CENTRAL LAB Chloride 104 98 - 109 12/02/2018 [facility] mmol/L 11:30 AM CDT CENTRAL LAB CO2 26 20 - 29 12/02/2018 [facility] mmol/L 11:30 AM CDT CENTRAL LAB Anion Gap 8 7 - 16 12/02/2018 [facility] mmol/L 11:30 AM CDT CENTRAL LAB Calcium 10.0 8.4 - 12/02/2018 [facility] 10.4 11:30 AM CDT CENTRAL LAB mg/dL BUN 28 (H) 7 - 26 12/02/2018 [facility] mg/dL 11:30 AM T CENTRAL LAB Creatinine 1.02 0.55 - 12/02/2018 [facility] 1.02 11:30 AM CDT CENTRAL LAB mg/dL GFR, Estimated 58 (L) >60 12/02/2018 [facility] mL/min/1. 11:30 AM T CENTRAL LAB 73m2 GFR, Est If >60 >60 12/02/2018 [facility] mL/min/1. 11:30 AM T CENTRAL LAB Danish 73m2 Glucose 108 (H) 70 - 100 12/02/2018 [facility] mg/dL 11:30 AM T CENTRAL LAB Comment: The given reference range is fo r the fasting state. Non-fasting reference range for glucose is 70 - 180 mg/dL. Hours Fasting 12 12/02/2018 11:30 AM T [facility] Specimen Anatomical Collection Method / Collection Time Recei dawn Time (Source) Location / Volume Laterality Blood Venipuncture / 12/02/2018 7:34 12/02/2018 7:34 Unknown AM CDT AM CDT Narrative [facility] CENTRAL LAB - 12/02/2018 11:30 AM CDT The National Kidney Disease Education Pr ogram suggests measuring Cystatin C in patients with eGFRcrea of 45 to 59 ml/mi n/1.73^2 who do not have other markers of kidney damage (i.e. elevated urine Album in/Creatinine Ratio or a prior Cystatin C confirming the presence of chronic kidne y disease). Alisha Kimball MD LAB_1 Performing Organization Address [facility] Phon e Number [facility] C[facility]AL LAB [address] [address] [facility] [address] [place] [address], [place] Lipid Panel and Direct LDL(If Needed) (12/02/2018 7:34 AM CDT) [facility] [employer] Method Time Signature Cholesterol 167 0 - [...] CDT CENTRAL LAB Hours Fasting 12 12/02/2018 [facility] 11:30 AM CDT Specimen Anatomical Collection Method / Collection Time Recei dawn Time (Source) Location / Volume Laterality Blood Venipuncture / 12/02/2018 7:34 12/02/2018 7:34 Unknown AM CDT AM CDT Alisha Kimball MD LAB_1 Performing Organization Address City/[facility] Phon e Number [facility] [address] [address] [facility] [address] [place] [address], [place] (ABNORMAL) Hgb A1C (12/02/2018 7:34 AM CDT) [facility] [employer] Method Time Signature Hemoglobin A1C 6.7 (H) <=5.6 % 12/02/2018 [facility] 12:44 PM CDT CENTRAL LAB Specimen Anatomical Collection Method / Collection Time Recei dawn Time (Source) Location / Volume Laterality Blood Venipuncture / 12/02/2018 7:34 12/02/2018 7:34 Unknown AM CDT AM CDT Narrative [facility] - 12/02/2018 12:44 PM CDT For patients not previously diagnosed with diabetes: 5.7-6.4%: Increased risk for diabetes 6.5% and greater: Diagnostic for diabete s For patients diagnosed with diabetes: <8.0%: Goal of therapy for ages 18-75 Clinicians may recommend a higher or low er goal for specific individuals. Alisha Kimball MD LAB_1 Performing Organization Address City/State/ZIP Code Phon e Number [facility] [address] [phone] documented in this encounter Visit Diagnoses Diagnosis Type 2 diabetes mellitus without complic ation, without long-term current use of insulin (HRC) documented in this encounter Care Teams Buggy Ladle Tender Relationship Specialty Start Date End Date Alisha Kimball MD PCP - General 07/08/05 [address] [place] [address] documented as of this encounter
--- OUTSIDE RECORDS SUMMARY | 2022-06-10 14:20 | XMS_ITS | Encounter Summary ---
:1955 Author Organization [employer] Address [address] [place] [address] Care Team Providers Name Role Phone Alisha Kimball MD Primary Care Provider Reason for Visit Reason Comments Routine Eye Exam RAMIN 01/19 . Patient s tates no visual changes or problems. States that she do es use systane for dry eyes. Has some allergies. Using otc re aders. Diabetic Exam, Yearly BS-controlled with oral meds . BS-105 this AM. Last A1C 6.7 11/2018. [id number] Encounter Details Date Type Department Care Team Description 01/24/2019 Office Visit [facility] Eric Keller, RAJEEV Diabetes type 2, no ocular involvement ( HRC) (Primary Dx); [address] [place] [address] [place], [place] [phone] [address] Social History Tobacco Use Types Packs/Day Years [...] BS-105 this AM. Last A1C 6.7 11/2018. [id number] Routine Eye Exam Loc [place] is a [...] Presbyopia documented in this encounter Care Teams Manufacturing Test Technician Relationship Specialty Start Date End Date Alisha Kimball MD PCP - General 07/08/05 [address] [place] [address] documented as of this encounter
--- OUTSIDE RECORDS SUMMARY | 2022-06-10 14:20 | XMS_ITS | Encounter Summary ---
:1955 Author Organization [facility] Address [address] [place] [address] Care Team Providers Name Role Phone Carroll Kimball MD Primary Care Provider Reason for Visit Reason Comments Refill metoprolol succinate (TOPROL -XL) 200 MG 24 hour release tablet [Pharmacy Med Name: METOPROLOL SUCC ER 200 MG TAB] Encounter Details Date Type Department Care Team Description 01/23/2019 Refill [facility] Carroll Kimball MD Refill (metoprolol Practice [address] succinate (TOPROL-XL) [address] [place] [address] 200 MG 24 hour release [place], [place] [id number] tablet [Pharmacy Med [phone] Name: MET OPROLOL SUCC ER 200 MG [...] office visit) Last qualifying visit: 12/12/2018 (in [facility]) Next scheduled visit: None Last ordered by CARROLL KIMBALL: 05/04/2018 (264 days ago) QTY: 90, Refills: 2, Sig: take 1 tablet by mouth daily at bedtime (changed but equivalent) Powered by [employer], Reference: [id number], 01/23/2019 7:41:13 AM CDT, Pool: ARNOLD REFILL RN ([id number]) documented in this encounter Plan of Treatment Not on filedocumented as of this encounter Visit Diagnoses Diagnosis Essential hypertension (HRC) Unspecified essential hypertension documented in this encounter Care Teams Cracker Off Relationship Specialty Start Date End Date Carroll Kimball MD PCP - General 07/08/05 [address] [place] [place] [address] documented as of this encounter
--- OUTSIDE RECORDS SUMMARY | 2022-06-10 14:20 | XMS_ITS | Encounter Summary ---
:1955 Author Organization [facility] Address [address] [place] [address] Care Team Providers Name Role Phone Carroll Avalos MD Primary Care Provider Reason for Visit Reason Comments Refill metFORMIN XR (GLUCOPHAGE XR) 500 MG 24 hour release tablet [Pharmacy Med Name: METFORMIN ER 500 MG TABLET] Encounter Details Date Type Department Care Team Description 10/21/2018 [facility]val[facility] Refill (metFORMIN XR [address] [facility] [address] (GLUCOPHAGE XR) 500 [place] [address] [place] [address] 24 hour release tablet [phone] (Wo rk) [Pharmacy Med Name: METFORMIN ER [...] Cr check) Last qualifying visit: 12/07/2017 (in [facility]) Next scheduled visit: None Last ordered by CARROLL AVALOS K: 07/25/2018 (88 days ago) QTY: 360, Refills: 0, Sig: take 4 tablets by mouth daily with breakfast (unchanged) Cr: 0.86 mg/dL on 11/26/2017 HBA1C: 7.5 % on 07/28/2018 Powered by [employer], Reference: [id number], 10/21/2018 12:52:35 AM CDT, Pool: ARNOLD AMEZQUITA RN ([id number]) Interface, Out [employer] Query - 10/21/2018 12:52 AM CDT The following lab order(s) may be associated with the Result Note below: AST Notes Recorded by Dallas Nguyen RN on 11/26/2017 at 12:44 PM Letter sent with normal AST/ALT lab results. Dallas Nguyen RN 11/26/2017, 12:44 PM Interface, Out [employer] Query - 10/21/2018 12:52 AM CDT The following lab order(s) may be associated with the Result Note below: HGB A1C,POINT OF CARE Notes recorded by Marysol Carey, RN on 07/28/2018 at 4:44 PM FUR DRESSING SUPERVISOR Discussed during appointment with Dr. Bolden. Marysol Carey RN 07/28/2018, 4:44 PM documented in this encounter Plan of Treatment Not on filedocumented as of this encounter Visit Diagnoses Not on filedocumented in this encounter Care Teams Intelligence Support Officer Relationship Specialty Start Date End Date Carroll Avalos MD PCP - General 07/08/05 [address] [facility] [place] [address] documented as of this encounter
--- OUTSIDE RECORDS SUMMARY | 2022-06-10 14:20 | XMS_ITS | Encounter Summary ---
:1955 Author Organization [employer] Address [address] [address] Care Team Providers Name Role Phone Alisha Kimball MD Primary Care Provider Reason for Visit Reason Comments Dental Hygiene cc Encounter Details Date Type Department Care Team Description 10/11/2018 Office Visit [facility] [address] [address] [place] [address] Dental Hygiene (cc) Dentistry [facility], Exam [address] [place], [place] [address] Social History Tobacco Use [...] induced documented in this encounter Care Teams Welding Machine Operator Submerged Arc Relationship Specialty Start Date End Date Alisha Kimball MD PCP - General 07/08/05 [address] [place] [address] documented as of this encounter
--- OUTSIDE RECORDS SUMMARY | 2022-06-10 14:20 | XMS_ITS | Encounter Summary ---
:1955 Author Organization [facility] Address [address] [place] [address] Care Team Providers Name Role Phone Alisha Kimball MD Primary Care Provider Reason for Visit Reason Comments Blood Pressure, low [facility] Encounter Details Date Type Department Care Team Description 09/21/2018 Nurse Triage [facility] Alisha Kimball, Blood Pr essure, low; Practice [facility] [address] [facility]. [address] [place] [address] [place], [place] [phone] [facility] Social History Tobacco Use [...] Lozano RN - 09/21/2018 3:22 PM CDT Patient/hearing care practitioner request: Input needed ongoing symptoms Specific Request: patient states her B/P has been low like this for months so does not feel she needs SDA and occasional dizziness when first rising in am. She prefers to DC one of her B/P medications.Also to note has lost weight with [facility] weight loss program. Clinician sign order [...] BP monitor) In S office and at [facility] 4. HISTORY: Do you have a history [...] menstrual period? na Protocols used: LOW BLOOD [id number] Vero Robin - 09/21/2018 3:03 PM CDT Symptoms [Chief Technical Officer/Appt Center: If this call is after 3 p.m., communicate to patient: If we are not able to get back to you by the end of the day and your symptoms worsen, please contact the Careline [phone] OR at .] [Chief Technical Officer/Appt Center: Refer to Symptoms Indicating Need for [...] you recently been seen for this? No [Chief Technical Officer/Appt Center: Add/verify patient preferred pharmacy is highlighted [...] on filedocumented in this encounter Care Teams Principal Administrative Clerk Relationship Specialty Start Date End Date Alisha Kimball MD PCP - General 07/08/05 [address] [facility] [facility] [place] [address] documented as of this encounter
--- OUTSIDE RECORDS SUMMARY | 2022-06-10 14:20 | XMS_ITS | Encounter Summary ---
:1955 Author Organization [employer] Address [address] [place] [address] Care Team Providers Name Role Phone Alisha Kimball MD Primary Care Provider Reason for Referral Consult/Transfer Care (Routine) - Closed Specialty Diagnoses / Procedures Referred By Contact Refer red To Contact Diagnoses Essential hypertension (HRC) Alisha Kimball MD [address] [place] [address] Referral ID Status Reason Start Date Expiration Date Visits Requ ested Visits Authorized [id number] Closed 12/12/2018 03/12/2020 1 1 Scheduling Instructions Your provider has recommended an appoint ment to follow up on your high blood pressure. It is best to schedule your ap pointment on the way out of the clinic. If you prefer, you may call your primary ca re clinic or a industrial garage servicer will contact you to assist you in setting up this appointmen t. There are no co-pays for nurse blood pressure checks or medication therapy frankie ceja (clinical pharmacist). Reason for Visit Reason Comments ROUTINE HEALTH MAINTENANCE Encounter Details Date Type Department Care Team Description 12/12/2018 Office Visit [facility] Alisha Kimball Encounte r for routine adult health examination without abnormal findings (Primary Dx); Practice MD Type 2 diabetes mellitus without complic ation, without long-term current use of insulin (HRC); [address] Paroxysmal atrial fibrillation (HRC); [place] [address] [place] [address] Essential hypertension [phone] Social History Tobacco Use Types Packs/Day Years [...] can you learn more? 1. Go to [email or web address]/EasyLink or [email or web address]. 2. Enter Y074 in the search box. Current as of: June 16, 2018 Content Version: 12.0 ?? [id number] [employer]. Care instructions adapted under license by your healthcare professional. If you have questions about a medical condition or this instruction, always ask your healthcare professional. [employer] disclaims any warranty or liability for your [...] her blood pressure checked every week at [facility] and normal. No medication side effects.Wonders if [...] Not at goal today. Since normal at [facility], continue to watch. She will follow up on the nurse schedule in 2 weeks. 3. Atrial fibrillation. No ongoing symptoms. Continue Eliquis. Alisha Kimball MD documented in this encounter Plan of Treatment Scheduled Referrals Name Type Priority Associated Diagnoses Order S chedule Hypertension Follow Up Referral Routine Essential hyperten bobbi Ordered: 12/12/2018 ([id number]) documented as of this encounter Results (ABNORMAL) Microalbumin/Creatinine Ratio (12/16/2018 7:55 AM CDT) [facility] gist Method Time Signature Albumin, 64.8 mg/L 12/16/2018 [facility]rine, Random 4:17 PM CDT CENTRAL LAB Creatinine, 209 >20 mg/dL 12/16/2018 [facility] Urine, Random 4:17 PM CDT CENTRAL LAB Albumin/Creati 31 (H) <30 mg/g 12/16/2018 [facility] nine Ratio, 4:17 PM CDT CENTRAL LAB Urine, Random Specimen Anatomical Collection Method Collection Time Receive d Time (Source) Location / / Volume Laterality Urine,random 12/16/2018 7:55 AM 9 7:55 CDT AM CDT Alisha Kimball MD LAB_1 Performing Organization Address City/State/ZIP Code Phon e Number [facility] CENTRAL [facility] [address] [phone] documented in this encounter Visit Diagnoses Diagnosis Encounter for routine adult health exami nation without abnormal findings - Primary Type 2 diabetes mellitus without complic ation, without long-term current use of insulin (HRC) Paroxysmal atrial fibrillation (HRC) Atrial fibrillation Essential hypertension (HRC) Unspecified essential hypertension documented in this encounter Care Teams Inbound Sales Manager Relationship Specialty Start Date End Date Alisha Kimball MD PCP - General 07/08/05 [address] [place] [address] documented as of this encounter
--- OUTSIDE RECORDS SUMMARY | 2022-06-10 14:21 | XMS_ITS | Encounter Summary ---
:1955 Author Organization [facility] Address [address] [place] [address] Care Team Providers Name Role Phone Alisha Kimball MD Primary Care Provider Encounter Details Date Type Department Care Team Description 04/27/2018 Refill Order [facility] Alisha Kimball MD [address] [facility] [address] [facility] [place] [address] [place] [address] (Wo rk) Social History Tobacco [...] to encounter. - LAST QUALIFYING VISIT [place] [facility]: 12/07/2017 - NEXT SCHEDULED VISIT: [...] You can schedule your appointment online at [facility] or by calling the appointment center at the phone number listed above. Thank you for choosing [facility] Powered by [employer] Reference: [id number], 04/27/2018 1:37:44 AM CDT, Pool: ARNOLD AMEZQUITA RN ([id number]) Interface, Out [employer] Query - 04/27/2018 1:37 AM CDT The [...] Results (ABNORMAL) Hgb A1c (05/23/2018 7:45 AM INVENTORY AUDITOR) P athologist Signature Hgb A1c 8.2 (H) [...] Volume Laterality 05/23/2018 7:45 AM 8 7:46 INVENTORY AUDITOR AM INVENTORY AUDITOR Narrative [facility] - 05/23/2018 2:[address] Performed at [facility], [address] [place] [id number] Alisha Kimball MD LAB_1 Performing Organization Address City/State/[facility] Code Phon e Number [facility] [phone] documented in this encounter Visit Diagnoses Diagnosis Encounter for long-term (current) use of medications - Primary Encounter for long-term (current) use of other medications Encounter for long-term (current) use of medications Encounter for long-term (current) use of other medications documented in this encounter Care Teams Stopper Maker Relationship Specialty Start Date End Date Alisha Kimball MD PCP - General 07/08/05 [address] [place] [address] documented as of this encounter
--- OUTSIDE RECORDS SUMMARY | 2022-06-10 14:21 | XMS_ITS | Encounter Summary ---
:1955 Author Organization [employer] [facility] Address [address] [place] [address] Care Team Providers Name Role Phone Alisha Kimball MD Primary Care Provider Reason for Visit Reason Comments Consult, New Patient Diabetes Consult/Transfer Care (Routine) - Closed Specialty Diagnoses / Procedures Referred By Contact Refer red To Contact Diagnoses Type 2 diabetes mellitus without complication, without long-term current use of insulin (HRC) Alisha Kimball MD [address] [place] [address] Referral ID Status Reason Start Date Expiration Date Visits Requ ested Visits Authorized [id number] Closed 07/26/2018 10/25/2019 1 1 Encounter Details Date Type Department Care Team Description 07/28/2018 Office Visit [facility] [address] Bolden, Type 2 diabetes Endocrinology Clinic MD mellitus without [address] complication, [place] [address] [place], [place] long-term current use [phone] of insulin (HRC) [phone] (Primary Dx) (Work) Social History Tobacco Use Types Packs/Day Years Used Date Smoking Tobacco: Never Smokeless Tobacco: Never Alcohol Use Standard Drinks/Week Comments No 0 (1 standard drink = 0.6 oz pure alcoho l) Sex Assigned at Date Recorded Not on file documented as of this encounter Last Filed Vital Signs Vital Sign Reading Time Taken Comments Blood Pressure 117/78 07/28/2018 1:09 PM [facility] Pulse 60 07/28/2018 1:09 PM [facility] Temperature - - Respiratory Rate - - Oxygen Saturation - - Inhaled Oxygen Concentration - - Weight 84.4 kg (186 lb) 07/28/2018 1:09 PM [facility] Height 162.6 cm (5' 4) 07/28/2018 1:09 PM [facility] Body Mass Index 31.93 07/28/2018 1:09 PM [facility] documented in this encounter Progress Notes Brock [...] PRN. Brock Bolden MD 07/28/2018, 2:45 PM [facility] Marysol Carey, RN - 07/28/2018 1:15 PM CST Discussed during appointment with Dr. Bolden. Marysol Carey, CAITLYN 07/28/2018, 4:44 PM [facility] documented in this encounter Nursing Notes Kian Hoffman, [facility] - 07/28/2018 1:15 PM CST How [...] never used smokeless tobacco. Kian Hoffman CMA [facility] documented in this encounter Plan of Treatment Not on filedocumented as of this encounter Procedures Procedure Name Priority Date/Time Associated Diagnosis Comme nts HGB A1C,POINT OF Routine 07/28/2018 2:30 PM Type 2 diabetes Re sults for this CARE [facility] mellitus without procedure a re in complication, the results without long-term section. current use of insulin (HRC) documented in this encounter Results (ABNORMAL) Hgb A1c, Point of Care (07/28/2018 2:30 PM [facility]) [facility] gist Method Time Signature Point of [...] Volume Laterality 07/28/2018 2:30 PM 9 4:23 [facility] PM [facility] Brock Bolden MD LAB_1 Performing Organization Address City/State/ZIP Code Phon e Number [facility] [phone] documented in this encounter Visit Diagnoses Diagnosis Type 2 diabetes mellitus without complic ation, without long-term current use of insulin (HRC) - Primary documented in this encounter Care Teams Facility Technician Relationship Specialty Start Date End Date Alisha Kimball MD PCP - General 07/08/05 [address] [place] [address] documented as of this encounter
--- OUTSIDE RECORDS SUMMARY | 2022-06-10 14:21 | XMS_ITS | Encounter Summary ---
:1955 Author Organization [facility] Address [address] [place] [address] Care Team Providers Name Role Phone Alisha Kimball MD Primary Care Provider Reason for Visit Reason Onset Date Comments Refill 03/16/2018 Encounter Details Date Type Department Care Team Description 03/16/2018 Refill [facility] [place] Janice Whipple , PAMehreenC Refill Cardiology [address] [place] [address] Social History Tobacco Use Types Packs/Day Years [...] on filedocumented in this encounter Care Teams Behavioral Instructor Relationship Specialty Start Date End Date Alisha Kimball MD PCP - General 07/08/[address] [place], [place] [id number] documented as of this encounter
--- OUTSIDE RECORDS SUMMARY | 2022-06-10 14:21 | XMS_ITS | Encounter Summary ---
:1955 Author Organization [facility] Address [address] [address] Care Team Providers Name Role Phone Alisha Kimball MD Primary Care Provider Reason for Visit Reason Comments Dental Hygiene none Encounter Details Date Type Department Care Team Description 06/10/2018 Office Visit [facility] Tiffanie Fletcher Dental Hygiene (none) Dentistry [address] [facility] [address] [place] [address] [phone] Social History Tobacco Use Types Packs/Day Years Used Date Smoking Tobacco: Never Smokeless Tobacco: Never Alcohol Use Standard Drinks/Week Comments No 0 (1 standard drink = 0.6 oz pure alcoho l) Sex Assigned at Date Recorded Not on file documented as of this encounter Last Filed Vital Signs Vital Sign Reading Time Taken Comments Blood Pressure 117/69 06/10/2018 10:55 AM GAS FURNACE INSTALLER Pulse - - Temperature - - Respiratory [...] procedures in this visit. --End of Note-- FURNACE INSTALLER documented in this encounter Plan of Treatment Not on filedocumented as of this encounter Procedures Procedure Name Priority Date/Time Associated Diagnosis Comme nts PROPHYLAXIS-ADULT Routine 06/10/2018 11:00 AM GAS FURNACE INSTALLER Localized gi ngivitis RECALL documented in this encounter Visit Diagnoses Diagnosis Localized gingivitis - Primary Visit for periodic health examination Unspecified general medical examination documented in this encounter Care Teams Christmas Tree Contractor Relationship Specialty Start Date End Date Alisha Kimball MD PCP - General 07/08/05 [address] [place] [address] documented as of this encounter
--- OUTSIDE RECORDS SUMMARY | 2022-06-10 14:21 | XMS_ITS | Encounter Summary ---
:1955 Author Organization [employer] Address [address] [address] Care Team Providers Name Role Phone Alisha Kimball MD Primary Care Provider Reason for Visit Reason Comments Broken Tooth Encounter Details Date Type Department Care Team Description 02/22/2018 Telephone [facility] Unassigned, Provider Broken Tooth Dentistry [address] [place] [id number] [place] [address] Social History Tobacco Use Types Packs/Day Years [...] causing your problem? [] Accident [] Lost Protestant [x] Broken Tooth [] Chipped Tooth [] [...] on filedocumented in this encounter Care Teams Embedded Developer Relationship Specialty Start Date End Date Alisha Kimball MD PCP - General 07/08/05 [address] [place] [address] documented as of this encounter
--- OUTSIDE RECORDS SUMMARY | 2022-06-10 14:21 | XMS_ITS | Encounter Summary ---
:1955 Author Organization [facility] Address [address] [place] [address] Care Team Providers Name Role Phone Alisha Kimball MD Primary Care Provider Reason for Visit Reason Comments Refill Encounter Details Date Type Department Care Team Description 06/16/2018 Telephone [facility] maxi Alisha Kimball MD Refill [address] [facility]. [address] [place] [address] [place], [place] [phone] (Wo rk) Social History Tobacco Use Types Packs/Day Years Used Date Smoking Tobacco: Never Smokeless Tobacco: Never Alcohol Use Standard Drinks/Week Comments No 0 (1 standard drink = 0.6 oz pure alcoho l) Sex Assigned at Date Recorded Not on file documented as of this encounter Nursing Notes Alisha Kimball MD - 06/16/2018 4:44 PM CST Done. Alisha Kimball MD PROOF REPRODUCER Tara Ricketts - 06/16/2018 4:05 PM CST Eliquis 5 mg.Patient states PCP is supposed to order from now on and not the piercer operator. Resent the Refill request to Dr. Kimball. PROOF REPRODUCER Francesca Cho CMA - 06/16/2018 3:28 PM CST CA: What prescription is patient requesting a refill on? PROOF REPRODUCER Francesca Cho CMA - 06/16/2018 3:27 PM CST ----- Message from Rocio Gacria sent at 06/16/2018 3:14 PM TYPE PROOF REPRODUCER ----- Contact: Melia Patient is calling about their refill request, please complete as soon as possible. Thanks, Rocio Garcia PROOF REPRODUCER Rocio Garcia - 06/16/2018 3:13 PM CST Patient called to check status of this refill request. [facility]aving [facility] on Wednesday06/20/18 PROOF REPRODUCER documented in this encounter Plan of Treatment Not on filedocumented as of this encounter Visit Diagnoses Not on filedocumented in this encounter Care Teams Manufacturing Maintenance Mechanic Relationship Specialty Start Date End Date Alisha Kimball MD PCP - General 07/08/05 [address] [place] [address] documented as of this encounter
--- OUTSIDE RECORDS SUMMARY | 2022-06-10 14:21 | XMS_ITS | Encounter Summary ---
:1955 Author Organization [facility] Address [address] [place] [address] Care Team Providers Name Role Phone Carroll Avalos MD Primary Care Provider Reason for Visit Reason Comments Refill metFORMIN XR (GLUCOPHAGE XR) 500 MG 24 hour release tablet [Pharmacy Med Name: METFORMIN ER 500 MG TABLET] Encounter Details Date Type Department Care Team Description [facility] Refill (metFORMIN XR [address] [facility] [address] (GLUCOPHAGE XR) 500 [place] [address] [place] [address] 24 hour release tablet [phone] (Wo rk) [Pharmacy Med Name: METFORMIN ER [...] HBA1C check) Last qualifying visit: 12/07/2017 [facility] Next scheduled visit: None Last ordered by CARROLL AVALOS K: 12/07/2016 (419 days ago) QTY: 360, Refills: 11, Sig: take 4 tabs by mouth daily with breakfast. (changed but equivalent) Cr: 0.86 mg/dL on 11/26/2017 HBA1C: 7.7 % on 11/26/2017 Powered by [employer] value, Reference: [id number], 01/30/2018 1:20:32 AM CDT, Pool: ARNOLD AMEZQUITA RN ([id number]) Interface, Out Storelift Query - 01/30/2018 1:20 AM CDT The [...] filedocumented in this encounter Care Teams Electric Wirer Relationship Specialty Start Date End Date Carroll Avalos MD PCP - General 07/08/05 [address] [place] [address] documented as of this encounter
--- OUTSIDE RECORDS SUMMARY | 2022-06-10 14:21 | XMS_ITS | Encounter Summary ---
:1955 Author Organization [employer] Address [address] [place] [address] Care Team Providers Name Role Phone Alisha Kimball MD Primary Care Provider Reason for Visit Reason Comments ROUTINE HEALTH MAINTENANCE Smartset/Labs and urine wer e done last week. Encounter Details Date Type Department Care Team Description 12/07/2017 Office Visit [facility] Alisha Kimball, German r for routine adult health examination without abnormal findings (Primary Dx); Practice MD Type 2 diabetes mellitus without complic ation, without long-term current use of insulin (HRC); [address]; [place] [address] [address] Paroxysmal atrial fibrillation ([facility]); [phone] [place], [place] Screening for H IV (human immunodeficiency virus); [address] Encounter for screening mammogram for ma lignant [...] help, I will have you see a Electrician Apprentice. Well Visit, Women 50 to 65: Care [...] can you learn more? 1. Go to [employer] or Polyheal/ISpeak. 2. Enter Y074 in the search box. Current as of: November 17, 2016 Content Version: 11.6 ?? [id number] [employer]. Dermatitis: Care Instructions Your Care Instructions [...] help for plant rashes. ?? Take an rbzq-kfh-mvpmvqq antihistamine, such as diphenhydramine (Benadryl) or loratadine [...] can you learn more? 1. Go to [employer] or [employer]. 2. Enter F270 in the search box. Current as of: April 08, 2017 Content Version: 11.6 ?? [phone] [employer], [employer]. documented in this encounter Progress Notes Alisha [...] Diagnosis Encounter for routine adult health exami [facility] [place] without abnormal findings - Primary Type 2 [...] mammogram documented in this encounter Care Teams Change Director Relationship Specialty Start Date End Date Alisha Kimball MD PCP - General 07/08/05 [address] [place] [address] documented as of this encounter
--- OUTSIDE RECORDS SUMMARY | 2022-06-10 14:21 | XMS_ITS | Encounter Summary ---
:1955 Author Organization [facility] Address [address] [place] [address] Care Team Providers Name Role Phone Alisha Kimball MD Primary Care Provider Reason for Referral Procedure/Equipment (Routine) - Incomplete Specialty Diagnoses / Procedures Referred By Contact Refer red To Contact Procedures Alisha Kimabll MD MM Mammogram Screening [facility] [address] [place] [address] Referral ID Status Reason Start Date Expiration Date Visits V isits Requested Authorized [id number] Incomplete 01/18/2018 04/19/2019 1 1 Reason for Visit Procedure/Equipment (Routine) - Incomplete Specialty Diagnoses / Procedures Referred By Contact Refer red To Contact Procedures Alisha Kimball MD MM Mammogram Screening [facility] [address] [place] [address] Referral ID Status Reason Start Date Expiration Date Visits V isits Requested Authorized [id number] Incomplete 01/18/2018 04/19/2019 1 1 Encounter Details Date Type Department Care Team Description 01/18/2018 Imaging Pending sale to [facility] ury Mammography [address] [place] [address] Social History Tobacco Use Types [...] on filedocumented in this encounter Care Teams Transportation Planning Technician Relationship Specialty Start Date End Date Alisha Kimball MD PCP - General 07/08/05 [address] [place] [address] documented as of this encounter
--- OUTSIDE RECORDS SUMMARY | 2022-06-10 14:21 | XMS_ITS | Encounter Summary ---
:1955 Author Organization [employer] Address [address] [place] [address] Care Team Providers Name Role Phone Carroll Kimball MD Primary Care Provider Reason for Visit Reason Comments Refill amLODIPine (NORVASC) 5 MG ta blet [Pharmacy Med Name: AMLODIPINE BESYLATE 5 MG TAB] Encounter Details Date Type Department Care Team Description 04/28/2018 Refill [facility] Carroll Kimball MD Refill (amLODIPine [address] [facility] [address] (NORVASC) 5 [place] [address] [place] [address] [Pharmacy Med Name: [phone] (Wo rk) AMLODIPINE BESYLATE 5 MG TAB]) [...] office visit) Last qualifying visit: 12/07/2017 (in [facility]) Next scheduled visit: None Last ordered by CARROLL KIMBALL: 05/11/2017 (352 days ago) QTY: 90, Refills: 3, Sig: take one tabletby mouth every day (changed but equivalent) SBP: 134 mm Hg on 04/25/2018 DBP: 88 mm Hg on 04/25/2018 Powered by [employer]TheHacker, Reference: [id number], 04/28/2018 1:40:49 AM CDT, Pool: ARNOLD REFILL RN ([id number]) documented in this encounter Plan of Treatment Not on filedocumented as of this encounter Visit Diagnoses Not on filedocumented in this encounter Care Teams Reconciler Relationship Specialty Start Date End Date Carroll Kimball MD PCP - General 07/08/05 [address] [place] [address] documented as of this encounter
--- OUTSIDE RECORDS SUMMARY | 2022-06-10 14:21 | XMS_ITS | Encounter Summary ---
:1955 Author Organization [employer] Address [address] [place] [address] Care Team Providers Name Role Phone Alisha Kimball MD Primary Care Provider Reason for Visit Reason Comments Orders Needed Encounter Details Date Type Department Care Team Description 05/02/2018 Telephone [facility] Alisha Steinberg MD Orders Needed [address] [place] [address] [place], [place] [phone] (Wo rk) Social History Tobacco Use Types [...] (FLONASE) 50 MCG/ACT nasal solution Place 1 [place] into both nostrils daily. decreaseto 1 spray [...] 05/02/2018 10:42 AM CDT Orders - Laboratory [Roll Mill Operator/Appt Center: If this call is after 3 p.m., communicate to patient: If we are not able to get back to you by the end of the day and your symptoms worsen please contact the Careline at [phone] OR at .] What lab order is [...] been seen recently for this concern? No [Roll Mill Operator/Appt Center:If patient was seen at an outside location, please obtain records] Is it okay to leave a detailed message on your voicemail? Yes [Roll Mill Operator/Appt Center: Instruct patient to check with insurance company for coverage] Is there anything else I can help you with today? Vero Robin Please route to: Care Team Pool documented in this encounter Plan of Treatment Not on filedocumented as of this encounter Visit Diagnoses Not on filedocumented in this encounter Care Teams Plant Security Guard Relationship Specialty Start Date End Date Alisha Kimball MD PCP - General 07/08/05 [address] [place] [address] documented as of this encounter
--- OUTSIDE RECORDS SUMMARY | 2022-06-10 14:21 | XMS_ITS | Encounter Summary ---
:1955 Author Organization [facility] Address [address] [place] [address] Care Team Providers Name Role Phone Alisha Kimball MD Primary Care Provider Reason for Visit Reason Comments Consult, New Patient vertigo started sat. went to ER [place] Encounter Details Date Type Department Care Team Description 08/25/2018 Office Visit [facility] Margot Sow M D Perceived hearing changes (Primary Dx); [address] Sensorineural hearing loss ( SNHL) of both ears; [address] [place] [address] [place], [place] [phone] [address] Social History Tobacco Use Types Packs/Day [...] clinic with any questions or concerns at [phone], option 3. TRIMMER documented in this encounter Progress Notes Margot [...] sensation but she does not have the foxqa-ix-ugcik spinning anymore. She said every time she [...] (FLONASE) 50 MCG/ACT nasal solution Place 1 [place] into both nostrils daily. decreaseto 1 spray [...] 90 Tablet 2 ??? neomycin-polymyxin B-hydrocortisone (CORTISPORIN) 3.5-91065-7 ear drop solution 3 Drops 4 times [...] ears H90.3 3. Bilateral impacted cerumen H61.23 [address] Removal Impact Cerumen 1/Both Ears 4. Vertigo [...] software and may contain unintended word substitutions. TRIMMER documented in this encounter Plan of Treatment Not on filedocumented as of this encounter Visit Diagnoses Diagnosis Perceived hearing changes - Primary Other disorders of ear Sensorineural hearing loss (SNHL) of bot h ears Bilateral impacted cerumen Impacted cerumen documented in this encounter Care Teams Science Analyst Relationship Specialty Start Date End Date Alisha Kimball MD PCP - General 07/08/05 [address] [place] [address] documented as of this encounter
--- OUTSIDE RECORDS SUMMARY | 2022-06-10 14:21 | XMS_ITS | Encounter Summary ---
:1955 Author Organization [facility] Address [address] [place] [address] Care Team Providers Name Role Phone Alisha Kimball MD Primary Care Provider Reason for Visit Reason Comments [facility] 5 Encounter Details Date Type Department Care Team Description 05/13/2018 Office Visit [facility] [place] [address] [place] [address] [facility] [place] (5) [address] [place] [address] Social History Tobacco Use Types [...] Loc (63 y.o.) was seen today for [facility] (5) CHART REVIEW Reviewed [...] ??? 5 PORCELAIN CROWN --End of Note-- URED CAR ESCORT documented in this encounter Plan of Treatment Not on filedocumented as of this encounter Procedures Procedure Name Priority Date/Time Associated Diagnosis Comme nts 5 P[place]ELAIN CROWN Routine 05/13/2018 3:01 PM ARMOURED CAR ESCORT Fracture of c rown, enamel, and dentin of tooth without pulp exposure documented in this encounter Visit Diagnoses Diagnosis Fracture of crown, enamel, and dentin of tooth without pulp exposure - Primary documented in this encounter Care Teams Web Production Artist Relationship Specialty Start Date End Date Ailsha Kimball MD PCP - General 07/08/05 [address] [place] [address] documented as of this encounter
--- OUTSIDE RECORDS SUMMARY | 2022-06-10 14:21 | XMS_ITS | Encounter Summary ---
:1955 [facility] Address [address] [place] [address] Care Team Providers Name Role Phone Alisha Kimball MD Primary Care Provider Encounter Details Date Type Department Care Team Description 08/25/2018 Orders Only [facility] Audiology Primary/Referring[facility] [address] [facility] [place] [address] Social History Tobacco Use Types Packs/Day Years [...] DIAGNOSTIC 08/25/2018 12:00 AM Results for this SENIOR PRODUCER procedure are i n the results section. documented in this encounter Results AUDIOLOGY DIAGNOSTIC (08/25/2018 12:00 AM SENIOR PRODUCER) Specimen (Source) Anatomical Location Collection Method / Collectio n Time Received Time / Laterality Volume 08/25/2018 Narrative This result has an attachment that is no t available. Phy No Primary/Referring DUMMY/OTHER/AR documented in this encounter Visit Diagnoses Not on filedocumented in this encounter Care Teams Cull Grader Relationship Specialty Start Date End Date Alisha Kimball MD PCP - General 07/08/[address] [place], [place] [address] documented as of this encounter
--- OUTSIDE RECORDS SUMMARY | 2022-06-10 14:21 | XMS_ITS | Encounter Summary ---
:1955 Author Organization [facility] Address [address] [place] [address] Care Team Providers Name Role Phone Alisha Kimball MD Primary Care Provider Reason for Visit Reason Comments INJURY, EYE Encounter Details Date Type Department Care Team Description 12/25/2017 Nurse Triage Careline Unknown, Physician INJURY, EYE [address] [place], [place] [address] [place] [address] [phone] (Wo rk) Social History Tobacco Use Types [...] last menstrual period? na Protocols used: EYE [id number] Dr. Gino Francisco paged at 12:50 PM Returned page at 1:04 PM Instructed to: Ciprofloxacin 0.3% one drop to affected eye QID for 7 days. Emerson Harris RN - 12/25/2017 12:43 PM CDT Verified patient identity using three identifiers: Yes Jayson [facility] [id number] Situation/Background (brief explanation of current symptoms/situation): Poked self with fingernail, bleeding on sclera. Diabetes, heart issues, on blood tinner and high blood pressure, several meds Johnna Hunt - 12/25/2017 10:07 AM CDT Verified patient identity using three identifiers: Yes Caller's relationship to patient: Self At which care system or clinic is the patient normally seen? [facility] Clinics Symptoms Describe the reason for call/symptoms [...] on filedocumented in this encounter Care Teams Hi Teacher Relationship Specialty Start Date End Date Alisha Kimball MD PCP - General 07/08/05 [address] [place] [address] documented as of this encounter
--- OUTSIDE RECORDS SUMMARY | 2022-06-10 14:21 | XMS_ITS | Encounter Summary ---
:1955 Author Organization [facility] Address [address] [place] [address] Care Team Providers Name Role Phone Alisha Kimball MD Primary Care Provider Reason for Visit Reason Comments Refill metoprolol succinate (TOPROL -XL) 200 MG 24 hour release tablet [Pharmacy Med Name: METOPROLOL SUCC ER 200 MG TAB] Encounter Details Date Type Department Care Team Description 05/04/2018 Refill [facility] Alisha Kimball MD Refill (metoprolol Practice [address] succinate (TOPROL-XL) [address] [place] [address] 200 MG 24 hour release [place], [place] [id number] tablet [Pharmacy Med [phone] Name: MET OPROLOL SUCC ER 200 MG [...] office visit) Last qualifying visit: 12/07/2017 (in [facility]) Next scheduled visit: None Last ordered by BLANCA ALMAGUER S: 05/21/2017 (348 days ago) QTY: 90, Refills: 3, Sig: take 1 tab by mouth daily at bedtime. (changed but equivalent) SBP: 134 mm Hg on 04/25/2018 DBP: 88 mm Hg on 04/25/2018 Heart Rate: 61 bpm on 04/25/2018 Powered by [employer], Reference: [id number], 05/04/2018 11:35:31 AM CDT, Pool: ARNOLD AMEZQUITA RN ([id number]) documented in this encounter Plan of Treatment Not on filedocumented as of this encounter Visit Diagnoses Diagnosis Essential hypertension (HRC) Unspecified essential hypertension documented in this encounter Care Teams Feed Weigher Relationship Specialty Start Date End Date Alisha Kimball MD PCP - General 07/08/05 [address] [place] [address] documented as of this encounter
--- OUTSIDE RECORDS SUMMARY | 2022-06-10 14:21 | XMS_ITS | Encounter Summary ---
:1955 Author Organization [facility] Address [address] [place] [address] Care Team Providers Name Role Phone Alisha Kimball MD Primary Care Provider Reason for Visit Reason Comments DIZZINESS VOMITING Encounter Details Date Type Department Care Team Description 08/21/2018 Nurse Triage Careline Unassigned, DIZZINESS; VOMITING [address] Provider [place], [place] [address] [place] [address] [place] [address] Social History Tobacco Use Types Packs/Day Years [...] right side, vomited. Protocols used: DIZZINESS - [id number] Plan: Pt to be seen in the ER. Pt verbalizes understanding and agrees with plan. Advised patient/caller to call back CareLine if there are further questions or concerns or to be seen if situation becomes emergent. The CareLine is available 25/01. Brandee Granger RN 08/21/2018, 8:34 AM MANAGEMENT DIRECTOR Cheyenne Gutierrez - 08/21/2018 8:21 AM CST Verified patient identity using three identifiers: Yes Caller's relationship to patient: Self At which care system or clinic is the patient normally seen? [facility] Symptoms Describe the reason for call/symptoms (include location and duration if applicable): Last two days have been experiencing dizziness. Feel a little pressure on left side of ear. This morning felt very dizzy, and has vomiting this morning. Plan:Caller transferred directly to CareLine nurse. MANAGEMENT DIRECTOR documented in this encounter Plan of Treatment Not on filedocumented as of this encounter Visit Diagnoses Not on filedocumented in this encounter Care Teams Aging Room Operator Relationship Specialty Start Date End Date Alisha Kimball MD PCP - General 07/08/05 [address] [place] [address] documented as of this encounter
--- OUTSIDE RECORDS SUMMARY | 2022-06-10 14:21 | XMS_ITS | Encounter Summary ---
:1955 Author Organization [facility] Address [address] [place] [address] Care Team Providers Name Role Phone Carroll Avalos MD Primary Care Provider Reason for Visit Reason Comments Refill metFORMIN XR (GLUCOPHAGE XR) 500 MG 24 hour release tablet [Pharmacy Med Name: METFORMIN ER 500 MG TABLET] Encounter Details Date Type Department Care Team Description 07/24/[address] [facility]valos MD Refill (metFORMIN XR [facility] [address] (GLUCOPHAGE XR) 500 [place] [address] [place] [address] 24 hour release tablet [phone] (Wo rk) [Pharmacy Med Name: METFORMIN ER [...] CST per standing order. Anne Neumann RN F BANK EXAMINER Interface, Out Surescripts Prov Query - 07/24/2018 [...] HBA1C check) Last qualifying visit: 12/07/2017 (in [facility]) Next scheduled visit: None Last ordered by CARROLL AVALOS K: 01/31/2018 (174 days ago) QTY: 360, Refills: 1, Sig: take 4 tabletsby mouth daily with breakfast (unchanged) Cr: 0.86 mg/dL on 11/26/2017 HBA1C: 8.2 % on 05/23/2018 Powered by [employer], Reference: [id number], 07/24/2018 8:19:59 AM CHIEF BANK EXAMINER, Pool: ARNOLD AMEZQUITA RN ([id number]) F BANK EXAMINER Interface, Out [facility] Query - 07/24/2018 8:20 AM CST The following lab order(s) may be associated with the Result Note below: AST Notes Recorded by Dallas Nguyen RN on 11/26/2017 at 12:44 PM Letter sent with normal AST/ALT lab results. Dallas Nguyen RN 11/26/2017, 12:44 PM F BANK EXAMINER documented in this encounter Plan of Treatment Not on filedocumented as of this encounter Visit Diagnoses Not on filedocumented in this encounter Care Teams Warehouse Technician Relationship Specialty Start Date End Date Carroll Avalos MD PCP - General 07/08/05 [address] [place] [address] documented as of this encounter
--- OUTSIDE RECORDS SUMMARY | 2022-06-10 14:21 | XMS_ITS | Encounter Summary ---
:1955 Author Organization [facility] Address [address] [place] [address] Care Team Providers Name Role Phone Alisha Kimball MD Primary Care Provider Encounter Details Date Type Department Care Team Description 05/23/2018 Lab Visit [facility] Encounter for long-term [address] [address] (current) use of [place], [place] [address] medications [phone] Social History Tobacco Use Types Packs/Day Years [...] 7:45 AM Encounter for Results for this FACILITY TECHNICIAN long-term (current) procedur e are in use of medications the resul ts section. documented in this encounter Results (ABNORMAL) Hgb A1c (05/23/2018 7:45 AM FACILITY TECHNICIAN) P athologist Signature Hgb A1c 8.2 (H) [...] Volume Laterality 05/23/2018 7:45 AM 8 7:46 FACILITY TECHNICIAN AM FACILITY TECHNICIAN Narrative [facility] - 05/23/2018 2:[address] Performed at [facility], [address] [place] [id number] Alisha Kimball MD LAB_1 Performing Organization Address City/State/ZIP Code Phon e Number [facility] [phone] documented in this encounter Visit Diagnoses Diagnosis Encounter for long-term (current) use of medications Encounter for long-term (current) use of other medications documented in this encounter Care Teams Truck Terminal Manager Relationship Specialty Start Date End Date Alisha Kimball MD PCP - General 07/08/05 [address] [place] [address] documented as of this encounter
--- OUTSIDE RECORDS SUMMARY | 2022-06-10 14:21 | XMS_ITS | Encounter Summary ---
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 [address] [address] [facility] [phone] [place], [place] [id number] Social History Tobacco Use Types Packs/Day Years [...] Presbyopia documented in this encounter Care Teams Analytical Data Miner Relationship Specialty Start Date End Date Alisha Kimball MD PCP - General 07/08/05 [address] [place] [address] documented as of this encounter
--- OUTSIDE RECORDS SUMMARY | 2022-06-10 14:21 | XMS_ITS | Encounter Summary ---
:1955 Author Organization [facility] Address [address] [place] [address] Care Team Providers Name Role Phone Alisha Kimball MD Primary Care Provider Reason for Referral Consult/Transfer Care (Routine) - Closed Specialty Diagnoses / Procedures Referred By Contact Refer red To Contact Diagnoses Type 2 diabetes mellitus without complication, without long-term current use of insulin (HRC) Alisha Kimball MD [address] [facility] [place] [address] Referral ID Status Reason Start Date Expiration Date Visits Requ ested Visits Authorized [id number] Closed 07/26/2018 10/25/2019 1 1 Scheduling Instructions Your provider has recommended an appoint ment with [facility]. You may call [phone] to schedule your a ppointment. If you prefer, a operating room scheduler will contact you within the next 3 business d ays to assist you in setting up this appointment. We suggest you call your [employer] insurance company about your coverage and benefits for this appointment. CIDE SQUAD SERGEANT Reason for Visit Reason Comments QUESTIONS, GENERAL Orders Needed Encounter Details Date Type Department Care Team Description 07/26/2018 Telephone [facility] Alisha Kimball MD QUESTIONS, GENERAL; Practice [address] Orders Needed [address] [place] [address] [place] [address] [phone] Social History Tobacco Use Types Packs/Day Years [...] below. Floresita Morris LPN 07/26/2018, 1:47 PM CIDE SQUAD SERGEANT Alisha Kimball MD - 07/26/2018 1:43 PM CST Order placed for Endocrinology. Alisha Kimball MD CIDE SQUAD SERGEANT Maria E Castillo LPN - 07/26/2018 10:58 AM CST Please review/sign pended order and route response back to Leslie BARRETT UNDERWEAR CUTTER.Thank you, Maria E Castillo LPN Radha Capellan - 07/26/2018 9:17 AM CST Miscellaneous Questions [Appt Center: If this call is after 3 p.m., communicate to patient: If we are not able to get back to you by the end of the day and your symptoms worsen please contact the Careline at [phone] OR at .] Is this a question/concern [...] symptoms worsen please contact the Careline at [phone] OR at .] What order (Lab, Radiology, Specialty, DME, etc) is being requested? DIABETIC SPECIALIST Why is this order being requested? MANAGE DIABETES, PT RECEIVED A LETTER THROUGH THE MAIL TO BE SEEN W/ TRAINING ASSOCIATE. Have you been seen recently for this concern? No [Appt Center:If patient was seen at an outside location, please obtain records] Is it okay to leave a detailed message on your voicemail? Yes [Appt Center: Instruct patient to check with insurance company for coverage] Is there anything else I can help you with today? Radha Malik CIDE SQUAD SERGEANT documented in this encounter Plan of Treatment Scheduled Referrals Name Type Priority Associated Diagnoses Order [facility] End[facility]ology Referral Routine Type 2 diabetes Ordered: Consult-Adults mellitus without complication, without long-term current use of insulin (HRC) documented as of this encounter Visit Diagnoses Diagnosis Type 2 diabetes mellitus without complic ation, without long-term current use of insulin (HRC) - Primary documented in this encounter Care Teams Front End Mechanic Relationship Specialty Start Date End Date Alisha Kimball MD PCP - General 07/08/05 [address] [place] [address] documented as of this encounter
--- OUTSIDE RECORDS SUMMARY | 2022-06-10 14:21 | XMS_ITS | Encounter Summary ---
:1955 Author Organization [facility] Address [address] [place] [address] Care Team Providers Name Role Phone Alisha Kimball MD Primary Care Provider Encounter Details Date Type Department Care Team Description 12/02/2017 Notes/Orders [facility] [place], Type 2 diabetes mellitus [address] [facility] [place] [address] without coma, without [phone] [place] [address] insulin ([facility]) Social History Tobacco Use Types Packs/Day [...] long-term sect ion. current use of insulin ([facility]) documented in this encounter Results Microalb/Creat Ratio (12/02/2017 7:57 AM CDT) [facility] gist Method Time Signature Albumin, 2.3 mg/L [facility] Creatinine,Ur 46 mg/dl [facility] Alb/Creat 5 <30 mg/g [facility] Ratio, Urine, creatinine [facility] Specimen Anatomical Collection Method Collection Time Receive d Time (Source) Location / / Volume Laterality Urine specimen 12/02/2017 7:57 AM 018 7:58 (specimen) CDT AM CDT Narrative [facility] - 12/02/2017 1:00 PM C DT Performed at [facility], [address] [place] [address] ??[id number] Alisha Kimball MD LAB_1 Performing Organization Address City/State/ZIP Code Phon e Number [facility] [phone] documented in this encounter Visit Diagnoses Diagnosis Type 2 diabetes mellitus with hyperosmol arity without coma, without long-term current use of insulin (HRC) documented in this encounter Care Teams Packaging Designer Relationship Specialty Start Date End Date Alisha Kimball MD PCP - General 07/08/05 [address] [place] [address] documented as of this encounter
--- OUTSIDE RECORDS SUMMARY | 2022-06-10 14:21 | XMS_ITS | Encounter Summary ---
:1955 Author Organization [facility] Address [address] [place] [address] Care Team Providers Name Role Phone Alisha Kimball MD Primary Care Provider Reason for Visit Reason Comments Ed Discharge Follow-up Encounter Details Date Type Department Care Team Description 09/21/2018 Telephone [facility] Alisha Kimball MD Ed Discharge Follow-up Practice [address] [place] [address] [place] [address] [phone] Social History Tobacco Use Types Packs/Day Years [...] filedocumented in this encounter Care Teams Electric Trucker Relationship Specialty Start Date End Date Alisha Kimball MD PCP - General 07/08/05 [address] [place] [address] documented as of this encounter
--- OUTSIDE RECORDS SUMMARY | 2022-06-10 14:21 | XMS_ITS | Encounter Summary ---
:1955 Author Organization [facility] Address [address] [place] [address] Care Team Providers Name Role Phone Carroll Avalos MD Primary Care Provider Reason for Visit Reason Comments Refill losartan (COZAAR) 50 MG tabl et [Pharmacy Med Name: LOSARTAN POTASSIUM 50 MG TAB] Encounter Details Date Type Department Care Team Description 04/27/2018 [facility]val[facility] MD Refill (losartan [facility] [address] (COZAAR) 50 [place] [address] [place] [address] [Pharmacy Med Name: [phone] (Wo rk) LOSARTAN POTASSIUM 50 MG TAB]) [...] K check) Last qualifying visit: 12/07/2017 (in [facility]) Next scheduled visit: None Last ordered by CARROLL AVALOS K: 05/11/2017 (351 days ago) QTY: 90, Refills: 3, Sig: take one tabletby mouth every day (changed but equivalent) SBP: 134 mm Hg on 04/25/2018 DBP: 88 mm Hg on 04/25/2018 Cr: 0.86 mg/dL on 11/26/2017 K: 4.3 mEq/L on 11/26/2017 Powered by [employer], Reference: [id number], 04/27/2018 1:37:43 AM CDT, Pool: ARNOLD AMEZQUITA RN ([id number]) Interface, Out [employer] Query - 04/27/2018 1:37 AM CDT The [...] filedocumented in this encounter Care Teams Business Sales Consultant Relationship Specialty Start Date End Date Carroll Avalos MD PCP - General 07/08/05 [address] [place] [address] documented as of this encounter
--- OUTSIDE RECORDS SUMMARY | 2022-06-10 14:21 | XMS_ITS | Encounter Summary ---
:1955 Author Organization [facility] Address [address], [place] [address] Care Team Providers Name Role Phone Alisha Kimball MD Primary Care Provider Reason for Visit Reason Comments Dental Hygiene none Encounter Details Date Type Department Care Team Description 02/07/2018 Office Visit [facility] Tiffanie Fletcher [address] [place], [place] [id number] Dental Hygiene (none) Dentistry [place], Exam [address] [place] [address] Social History Tobacco Use Types [...] by the dentist; dental hygienist or dental assistant counsel Specific information about what causes periodontal disease [...] should help you maintain this low risk. Meyers Chuck, we look forward to seeing you at your next visit! Thank you for choosing [facility]. documented in this encounter Progress Notes Janiya Fletcher - 02/07/2018 8:50 AM CDT PROPHY NOTE PROPHY/ASSESSMENT:27614::PROPHY NOTE Collaborative Agreement Patient consents to have [...] Primary documented in this encounter Care Teams Food Tester Relationship Specialty Start Date End Date Alisha Kimball MD PCP - General 07/08/05 [address] [place] [address] documented as of this encounter
--- OUTSIDE RECORDS SUMMARY | 2022-06-10 14:21 | XMS_ITS | Encounter Summary ---
:1955 Author Organization [facility] Address [address] [place] [address] Care Team Providers Name Role Phone Alisha Kimball MD Primary Care Provider Encounter Details Date Type Department Care Team Description 08/21/2018 Partner ED External to [facility], Provider DIZZINESS Social History Tobacco Use Types [...] on filedocumented in this encounter Care Teams Ticket Writer Relationship Specialty Start Date End Date Alisha Kimball MD PCP - General 07/08/[address] [place], [place] [id number] documented as of this encounter
--- OUTSIDE RECORDS SUMMARY | 2022-06-10 14:21 | XMS_ITS | Encounter Summary ---
:1955 Author Organization [facility] Address [address] [place] [address] Care Team Providers Name Role Phone Alisha Kimball MD Primary Care Provider Reason for Visit Reason Comments [facility] 5 Encounter Details Date Type Department Care Team Description 05/31/2018 Office Visit [facility] Charles Cleveland DDS [address] [place] [address] [facility] [place], Exam Services (5) [address] [place] [address] Social History Tobacco Use Types [...] Loc (63 y.o.) was seen today for [facility] (5) CHART REVIEW Reviewed [...] with resin-modified glass ionomer Radiographs made with church in place and reviewed. Verified occlusion, contacts, margins, aesthetics and cement removal. Adjusted and polished proximalcontacts, patient comfortable Patient was advised of normal post-operative instructions. NEXT VISIT Next planned visit is prophy. Care was assisted by pablo Cleveland DDS 05/31/2018, 3:49 PM Completed dental procedures in this visit ??? 5 CROWN SEAT --End of Note-- RIETARY TRADER documented in this encounter Plan of Treatment Not on filedocumented as of this encounter Procedures Procedure Name Priority Date/Time Associated Diagnosis Comme nts 5 CROWN SEAT Routine 05/31/2018 3:30 PM PROPRIETARY TRADER Fracture of tooth enamel and dentin documented in this encounter Visit Diagnoses Diagnosis Fracture of tooth enamel and dentin - Pr imary documented in this encounter Care Teams Army Senior Officer Relationship Specialty Start Date End Date Alisha Kimball MD PCP - General 07/08/05 [address] [place] [address] documented as of this encounter
--- OUTSIDE RECORDS SUMMARY | 2022-06-10 14:21 | XMS_ITS | Encounter Summary ---
:1955 Author Organization [facility] Address [address] [place] [address] Care Team Providers Name Role Phone Alisha Kimball MD Primary Care Provider Reason for Visit Reason Comments Problem Focused Exam UR bkn tooth Encounter Details Date Type Department Care Team Description 02/22/2018 Office Visit [facility] Jamaal Cleveland Pro blem Focused Exam Dentistry DDS (UR bkn tooth) [address] [facility] [address] [place] [address] [phone] Social History Tobacco Use Types Packs/Day Years [...] palpation, perio wnl. PA is wnl. A [place] fx 5, old amalgam, previously noted incomplete [...] consent Procedures performed at this visit Sedative Evangelical ?? Tooth #(s): 5 OB ?? Liner/varnish [...] imary documented in this encounter Care Teams Coat Joiner Lockstitch Relationship Specialty Start Date End Date Alisha Kimball MD PCP - General 07/08/05 [address] [place] [address] documented as of this encounter
--- OUTSIDE RECORDS SUMMARY | 2022-06-10 14:21 | XMS_ITS | Encounter Summary ---
:1955 Author Organization [facility] Address [address] [place] [address] Care Team Providers Name Role Phone Carroll Avalos MD Primary Care Provider Reason for Visit Reason Comments Refill atorvastatin (LIPITOR) 10 MG tablet [Pharmacy Med Name: ATORVASTATIN 10 MG TABLET] Encounter Details Date Type Department Care Team Description 02/01/2018 [facility] MD Refill (atorvastatin 205 [facility] [address] (LIPITOR) 10 [place] [address] [place] [address] [Pharmacy Med Name: [phone] (Wo rk) ATORVASTATIN 10 MG TABLET]) Social [...] office visit) Last qualifying visit: 12/07/2017 (in [facility]) Next scheduled visit: None Last ordered by CARROLL AVALOS: 01/22/2017 (375 days ago) QTY: 90, Refills: 3, Sig: take one tabletby mouth every day (changed but equivalent) LDL: 96 mg/dL on 11/26/2017 Powered by [employer], Reference: [id number], 02/01/2018 1:04:55 AM CDT, Pool: ARNOLD AMEZQUITA RN ([id number]) Interface, Out [employer] Prov Query - 02/01/2018 1:04 AM CDT [...] on filedocumented in this encounter Care Teams Flower Shop Laborer/Designer Relationship Specialty Start Date End Date Carroll Avalos MD PCP - General 07/08/05 [address] [place] [address] documented as of this encounter
--- OUTSIDE RECORDS SUMMARY | 2022-06-10 14:22 | XMS_ITS | Encounter Summary ---
:1955 Author Organization [facility] Address [address] [place] [address] Care Team Providers Name Role Phone Alisha Kimball MD Primary Care Provider Reason for Visit Reason Comments Lab Orders Needed Encounter Details Date Type Department Care Team Description 10/12/2017 Telephone [facility] maxi Alisha Kimball MD Lab Orders Needed [address] [place] [address] [place], [place] [phone] (Wo rk) Social History Tobacco Use Types [...] AM 8 7:33 CDT AM CDT Narrative [facility] - 11/26/2017 12:05 PM CDT Performed at [facility], [address] [place] [id number] Alisha Kimball MD LAB_1 Performing Organization Address City/State/ZIP Code Phon e Number [facility] [phone] (ABNORMAL) Hgb A1c (11/26/2017 7:30 AM CDT) [...] - 11/26/2017 12:56 PM CDT Performed at [facility], [address] [place] [id number] Alisha Kimball MD LAB_1 Performing Organization Address [facility] Phon e Number [facility] [phone] Lipid Panel and Direct LDL(If Needed) (11/26/2017 7:30 AM CDT) [facility] Method Time Signature Hours Fasting 12 [...] - 11/26/2017 12:05 PM CDT Performed at [facility], [address] [place] [address] ??[phone] Alisha Kimball MD LAB_1 Performing Organization Address [facility] Phon e Number [facility] [phone] documented in this encounter Visit Diagnoses Diagnosis [...] (HRC) documented in this encounter Care Teams Slitter Scorer Cut Off Operator Relationship Specialty Start Date End Date Alisha Kimball MD PCP - General 07/08/05 [address] [place] [address] documented as of this encounter
--- OUTSIDE RECORDS SUMMARY | 2022-06-10 14:22 | XMS_ITS | Encounter Summary ---
:1955 Author Organization [facility]ly [facility] Address [address] [place] [address] Care Team Providers Name Role Phone Alisha Kimball MD Primary Care Provider Encounter Details Date Type Department Care Team Description 04/22/2017 Notes/Orders [facility] Tamy Friedman MD Cardiology [address] [facility] [address] [place] [address] [place], [place] [id number] [phone] Social History Tobacco Use Types Packs/Day Years [...] on filedocumented in this encounter Care Teams Hoop Expander Relationship Specialty Start Date End Date Alisha Kimball MD PCP - General 07/08/[address] [place], [place] [id number] documented as of this encounter
--- OUTSIDE RECORDS SUMMARY | 2022-06-10 14:22 | XMS_ITS | Encounter Summary ---
:1955 Author Organization [facility] Address [address] [place] [address] Care Team Providers Name Role Phone Alisha Kimball MD Primary Care Provider Encounter Details Date Type Department Care Team Description 07/28/2017 Office Visit [address] [address] Social History Tobacco Use Types [...] filedocumented in this encounter Care Teams Track Patrol Relationship Specialty Start Date End Date Alisha Kimball MD PCP - General 07/08/[address] [place], [place] [id number] documented as of this encounter
--- OUTSIDE RECORDS SUMMARY | 2022-06-10 14:22 | XMS_ITS | Encounter Summary ---
:1955 Author Organization Formerly [facility] Address [address] [place] [address] Care Team Providers Name Role Phone Alisha Kimball MD Primary Care Provider Encounter Details Date Type Department Care Team Description 09/02/2017 Office Visit [facility] Janice Gill aroxysmal atrial fibrillation (HRC) (Primary Dx); Cardiology EMILY Whipple Heart palpitations; [address] [place] [address] Essential hypertension; [place] [address] TANNER (dyspnea on exertion) [phone] Social History Tobacco Use Types Packs/Day Years Used Date Smoking Tobacco: Never Smokeless Tobacco: Never Alcohol Use Standard Drinks/Week Comments No 0 (1 standard drink = 0.6 oz pure alcoho l) Sex Assigned at Date Recorded Not on file documented as of this encounter Last Filed Vital Signs Vital Sign Reading Time Taken Comments Blood Pressure 147/89 09/02/2017 7:55 AM FILM MOUNTER Pulse 64 09/02/2017 7:55 AM FILM MOUNTER Temperature - - Respiratory Rate 18 09/02/2017 7:21 AM FILM MOUNTER Oxygen Saturation 97% 09/02/2017 7:21 AM FILM MOUNTER Inhaled Oxygen Concentration - - Weight 85.3 kg (188 lb) 09/02/2017 7:21 AM FILM MOUNTER Height 163.8 cm (5' 4.5) 09/02/2017 7:21 AM FILM MOUNTER Body Mass Index 31.77 09/02/2017 7:21 AM FILM MOUNTER documented in this encounter Patient Instructions Patient [...] RegardsJanice PA-C You may contact us at: --[facility] scheduling number- [phone] If having symptoms of concern, please ask to speak to a nurse. The senior biostatistician/group leader will have a nurse call you to discuss your concerns. --After hours, contact the CareLine at [phone] or MOUNTER documented in this encounter Progress Notes Janice [...] time we started her on Eliquis for [id number] score of 3. Today, patient reports she [...] to contact me. Janice Gill PA-C 09/02/2017 [facility] Over 50% of the time of this visit was spent face to face with the patient coordinating care and counseling on symptoms, testing, rate vs rhythm control for atrial fibrillation. second time worker was over 25 minutes. MOUNTER documented in this encounter Plan of Treatment Not on filedocumented as of this encounter Visit Diagnoses Diagnosis Paroxysmal atrial fibrillation (HRC) - P rimary Atrial fibrillation Heart palpitations Palpitations Essential hypertension (HRC) Unspecified essential hypertension TANNER (dyspnea on exertion) Other dyspnea and respiratory abnormalit y documented in this encounter Care Teams Unattended Ground Sensor Specialist Relationship Specialty Start Date End Date Alisha Kimball MD PCP - General 07/08/05 [address] [place] [address] documented as of this encounter
--- OUTSIDE RECORDS SUMMARY | 2022-06-10 14:22 | XMS_ITS | Encounter Summary ---
:1955 Author Organization [facility] Address [address] [place] [address] Care Team Providers Name Role Phone Alisha Kimball MD Primary Care Provider Encounter Details Date Type Department Care Team Description 07/28/2017 Correspondence [facility] Sleep SLEEP QUESTIONNAIRE [facility] [address] [place] [address] Social History Tobacco Use Types Packs/Day [...] on filedocumented in this encounter Care Teams Time Study Analyst Relationship Specialty Start Date End Date Alisha Kimball MD PCP - General 07/08/05 [address] [place] [phone] documented as of this encounter
--- OUTSIDE RECORDS SUMMARY | 2022-06-10 14:22 | XMS_ITS | Encounter Summary ---
:1955 Author Organization [facility] Address [address] [place] [address] Care Team Providers Name Role Phone Alisha Kimball MD Primary Care Provider Reason for Visit Reason Comments Ear Pain right ear pain, liquid in ea r Encounter Details Date Type Department Care Team Description 05/19/2017 Office Visit [facility] Kareen Cohen, Diabete s mellitus, type 2 (HRC) (Primary Dx); Practice ISI TONY OME (otitis media with effusion), right; [address] Impacted cerumen of right ear; [place] [address] [place], [place] Encounter for immunization [phone] [id number] Social History Tobacco Use Types Packs/Day Years Used Date Smoking Tobacco: Never Smokeless Tobacco: Never Alcohol Use Standard Drinks/Week Comments No 0 (1 standard drink = 0.6 oz pure alcoho l) Sex Assigned at Date Recorded Not on file documented as of this encounter Last Filed Vital Signs Vital Sign Reading Time Taken Comments Blood Pressure 148/100 05/19/2017 2:27 PM ANATOMY PROFESSOR Pulse 68 05/19/2017 2:27 PM ANATOMY PROFESSOR Temperature - - Respiratory Rate - - Oxygen Saturation - - Inhaled Oxygen Concentration - - Weight 83 kg (183 lb) 05/19/2017 2:27 PM ANATOMY PROFESSOR Height - - Body Mass Index 31.41 04/22/2017 3:56 PM CDT documented in this encounter Patient Instructions Patient InstructionsKareen Cohen, CHAVO, DNP - 05/19/2017 2:20 PM ANATOMY PROFESSOR Images from the original note were not [...] can you learn more? 1. Go to [employer]/Well or [email or web address]. 2. Enter S930 in the search box. Current as of: January 31, 2016 Content Version: 11.3 ?? [id number] [employer], [employer]. OMY PROFESSOR documented in this encounter Progress Notes Norma [...] removed. Norma Lainez CMA 05/19/2017, 3:03 PM OMY PROFESSOR Kareen Cohen, CHAVO, RADHA - 05/19/2017 2:20 [...] (FLONASE) 50 MCG/ACT nasal solution; Place [employer] into both nostrils daily. decrease to 1 [...] that it can last several weeks. Avoid zksn-dyvgtippx-scwnghiutavkesq combinations products due to blood pressure. I think the intermittent sharp ear pain might represent a trigeminal neuralgia. If this persists, she should follow up with primary and consider an MRI of the brain. She verbalizes understanding and agrees with plan of care. Kareen Cohen APRN, RADHA 05/19/2017, 4:25 PM OMY PROFESSOR documented in this encounter Plan of Treatment [...] disease documented in this encounter Care Teams Director Emergency Services Relationship Specialty Start Date End Date Alisha Kimball MD PCP - General 07/08/05 [address] [place] [address] documented as of this encounter
--- OUTSIDE RECORDS SUMMARY | 2022-06-10 14:22 | XMS_ITS | Encounter Summary ---
:1955 Author Organization [employer] [facility] Address [address] [place] [address] Care Team Providers Name Role Phone Alisha Kimball MD Primary Care Provider Encounter Details Date Type Department Care Team Description 11/26/2017 Lab Visit [facility] Essential hypertension (Prim levy Dx); [address] [facility] Paroxysmal atrial fibrillati on ([facility]); [place] [address] Controlled type 2 diabetes m ellitus without complication, without long-term current use of insulin ([facility]); [phone] Type 2 diabetes mellitus with hyperosmolarity without coma, without long-term current use of insulin ([facility]) Social History Tobacco Use Types Packs/Day Years [...] 12/02/2017 1:00 PM C DT Performed at [facility], [address] [place] [phone] Alisha Kimball MD LAB_1 Performing Organization Address City/State/ZIP Code Phon e Number [facility] [phone] Basic Metabolic Panel (11/26/2017 7:30 AM CDT) [...] - 11/26/2017 12:05 PM CDT Performed at [facility], [address] [place] [address] ??[id number] Alisha Kimball MD LAB_1 Performing Organization Address [facility] Phon e Number [facility] [phone] (ABNORMAL) Hgb A1c (11/26/2017 7:30 AM CDT) [...] - 11/26/2017 12:56 PM CDT Performed at [facility], [address] [place] [address] ??[id number] Alisha Kimball MD LAB_1 Performing Organization Address [facility] Phon e Number [facility] [phone] Lipid Panel and Direct LDL(If Needed) (11/26/2017 [...] - 11/26/2017 12:05 PM CDT Performed at [facility], [address] [place] [address] ??[phone] Alisha Kimball MD LAB_1 Performing Organization Address City/[facility] Phon e Number [facility] [phone] ALT (SGPT) (11/26/2017 7:30 AM CDT) P athologist Signature ALT (SGPT) 44 0 - 55 U/L [facility] Specimen Anatomical Collection Method Collection Time Receive d Time (Source) Location / / Volume Laterality 11/26/2017 7:30 AM 8 7:33 CDT AM CDT Narrative [facility] - 11/26/2017 12:06 PM CDT Performed at [facility], [address] [place] [address] ??[id number] Janice Gill PA-C LAB_1 Performing Organization Address City/[facility]/ZIP [facility] Phon e Number [facility] [phone] AST (11/26/2017 7:30 AM CDT) P athologist Signature AST (SGOT) 26 10 - 40 U/L [facility] Specimen Anatomical Collection Method Collection Time Receive d Time (Source) Location / / Volume Laterality 11/26/2017 7:30 AM 8 7:33 CDT AM CDT Narrative [facility] - 11/26/2017 12:06 PM CDT Performed at [facility], [address] [place] [address] ??[phone] Janice Gill PA-C LAB_1 Performing Organization Address City/State/ZIP Code Phon e Number [facility] [phone] documented in this encounter Visit Diagnoses Diagnosis [...] (HRC) documented in this encounter Care Teams Solution Analyst Relationship Specialty Start Date End Date Alisha Kimball MD PCP - General 07/08/05 [address] [place] [address] documented as of this encounter
--- OUTSIDE RECORDS SUMMARY | 2022-06-10 14:22 | XMS_ITS | Encounter Summary ---
:1955 Author Organization [facility] Address [address], [place] [address] Care Team Providers Name Role Phone Alisha Kimball MD Primary Care Provider Reason for Visit Reason Comments Dental Exam none Dental Hygiene Encounter Details Date Type Department Care Team Description 09/17/2017 Office Visit [facility] Travis Turner Denta l Exam (none); Dentistry [facility] Dental Hygiene [address] [facility] [address] [facility] [address] [facility] [address] [place] [address] [place] [address] Social History Tobacco Use Types Packs/Day Years [...] should help you maintain this low risk. [place], we look forward to seeing you at your next visit! Thank you for choosing [facility]. documented in this encounter Progress Notes Travis Turner RDH - 09/17/2017 2:00 PM CDT PROPHY NOTE PROPHY/ASSESSMENT:[id number]::PROPHY NOTE Presentation ?? Oral Hygiene: normal ?? [...] ORAL EVALUATION Chief Complaint: Treatment Options: ??? [id number] Electronically signed by Travis Turner, [facility] at 09/17/2017 2:54 PM CDT Montse Leblanc DDS - 09/17/2017 2:00 PM [...] Name Priority Date/Time Associated Diagnosis Comme nts [id number] Routine 09/17/2017 2:54 PM CDT Chronic charlie odontitis, localized, slight PERIODIC ORAL Routine 09/17/2017 2:54 PM CDT Chronic periodont itis, EVALUATION localized, slight PROPHYLAXIS-ADULT Routine 09/17/2017 2:54 PM CDT Chronic perio dontitis, RECALL localized, slight 20 EXISTING ROOT CANAL Routine 10/02/2011 11:00 PM TREATMENT CDT 15 EXISTING PFM CROWN Routine 07/09/2009 12:00 AM THERAPIST SPEECH 19 EXISTING PFM CROWN Routine 07/09/2009 12:00 AM THERAPIST SPEECH 20 EXISTING PFM CROWN Routine 07/09/2009 12:00 AM THERAPIST SPEECH 5 DO EXISTING AMALGAM Routine 07/09/2009 12:00 AM FILLING THERAPIST SPEECH 21 DO EXISTING AMALGAM Routine 07/09/2009 12:00 AM FILLING THERAPIST SPEECH 13 DO EXISTING AMALGAM Routine 07/09/2009 12:00 AM FILLING THERAPIST SPEECH 2 MO EXISTING AMALGAM Routine 07/09/2009 12:00 AM FILLING THERAPIST SPEECH 2 L EXISTING AMALGAM Routine 07/09/2009 12:00 AM FILLING THERAPIST SPEECH 4 MOD EXISTING AMALGAM Routine 07/09/2009 12:00 AM FILLING THERAPIST SPEECH 29 O EXISTING AMALGAM Routine 07/09/2009 12:00 AM FILLING THERAPIST SPEECH documented in this encounter Visit Diagnoses Diagnosis Chronic periodontitis, localized, slight - Primary Gingivitis, chronic, non-plaque induced Chronic gingivitis, non-plaque induced Fractured dental lutheran with loss o f material Fractured dental restorative material wi th loss of material Tooth fracture Open wound of tooth (broken) (fractured) (due to trauma), without mention of complication Visit for periodic health examination Unspecified general medical examination Pulp necrosis Necrosis of dental pulp Tooth sensitivity Other specified diseases of hard tissues of teeth Open margin on tooth lutheran Open lutheran margins Caries of dentin Dental caries extending into dentine Periodontal disease Unspecified gingival and periodontal dis ease documented in this encounter Care Teams Correctional Classification Counselor Relationship Specialty Start Date End Date Alisha Kimball MD PCP - General 07/08/05 [address] [place] [address] documented as of this encounter
--- OUTSIDE RECORDS SUMMARY | 2022-06-10 14:22 | XMS_ITS | Encounter Summary ---
:1955 Author Organization [facility] Address [address] [address] Care Team Providers Name Role Phone Carroll Avalos MD Primary Care Provider Reason for Visit Reason Comments Refill amLODIPine (NORVASC) 5 MG ta blet [Pharmacy Med Name: AMLODIPINE BESYLATE 5MG TABS]; losartan (COZAAR) 50 MG tablet [Pharmacy Med Name: LOSARTAN POTASSIUM 50MG TABS] Encounter Details Date Type Department Care Team Description 05/11/2017 Refill [facility] Carroll Avalos MD Refill (amLODIPine Practice [address] (NORVASC) 5 MG tablet [address] [place] [address] [Pharmacy Med Name: [place] [address] AMLODIPINE BESYLATE 5MG [phone] TABS]; lo sartan (COZAAR) 50 MG tablet [...] 80 mm Hg on 04/23/2017 Powered by [employer], Reference: [id number], 05/11/2017 7:41:05 AM Luis dEuardo COREY: ARNOLD AMEZQUITA RN ([id number]) losartan (COZAAR) 50 MG tablet [Pharmacy Med [...] K: 4.4 mEq/L on 03/04/2017 Powered by [employer], Reference: [id number], 05/11/2017 7:41:05 AM TIRE CURER, Pool: ARNOLD AMEZQUITA RN ([id number]) CURER Interface, Out [place] Query - 05/11/2017 7:41 AM CST The [...] normal. Torey Marcelo MD 03/05/2017, 6:39 PM CURER documented in this encounter Plan of Treatment Not on filedocumented as of this encounter Visit Diagnoses Not on filedocumented in this encounter Care Teams Mentally Retarded Teacher Relationship Specialty Start Date End Date Carroll Avalos MD PCP - General 07/08/[address] [place] [address] documented as of this encounter
--- OUTSIDE RECORDS SUMMARY | 2022-06-10 14:22 | XMS_ITS | Encounter Summary ---
:1955 Author Organization [employer] Address [address] [address] Care Team Providers Name Role Phone Alisha Kimball MD Primary Care Provider Reason for Visit Reason Comments Disease Registry Encounter Details Date Type Department Care Team Description 09/28/2017 Telephone [facility] Alisha Steinberg MD Disease Registry [address] [facility]. [address] [place] [address] [place], [place] [phone] (Wo rk) Social History Tobacco Use Types [...] filedocumented in this encounter Care Teams Vp Platforms Relationship Specialty Start Date End Date Alisha Kimball MD PCP - General 07/08/05 [address] [place] [address] documented as of this encounter
--- OUTSIDE RECORDS SUMMARY | 2022-06-10 14:22 | XMS_ITS | Encounter Summary ---
:1955 Author Organization [facility] Address [address] [place] [address] Care Team Providers Name Role Phone Alisha Kimball MD Primary Care Provider Encounter Details Date Type Department Care Team Description 06/07/2017 Correspondence [facility] Rad[facility], MRI SAFETY SHEET [address] [facility] Provider [place] [address] Social History Tobacco Use Types Packs/Day Years [...] on filedocumented in this encounter Care Teams Electronic Prepress System Operator Relationship Specialty Start Date End Date Alisha Kimball MD PCP - General 07/08/[address] [place], [place] [phone] documented as of this encounter
--- OUTSIDE RECORDS SUMMARY | 2022-06-10 14:22 | XMS_ITS | Encounter Summary ---
:1955 Author Organization [facility] Address [address] [place] [address] Care Team Providers Name Role Phone Alisha [...] on filedocumented in this encounter Care Teams Barometers Calibrator Relationship Specialty Start Date End Date Alisha Kimball MD PCP - General 07/08/[address] [place], [place] [phone] documented as of this encounter
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
--- OUTSIDE RECORDS SUMMARY | 2022-06-10 14:22 | XMS_ITS | Encounter Summary ---
:1955 Author Organization [facility] Address [address] [place] [address] Care Team Providers Name Role Phone Alisha Kimball MD Primary Care Provider Reason for Referral Consult/Transfer Care (Routine) - Closed Specialty Diagnoses / Procedures Referred By Contact Refer red To Contact Diagnoses Psychophysiological insomnia Tomás Oswald MD [address] [place] [address] Referral ID Status Reason Start Date Expiration Date Visits Requ ested Visits Authorized [id number] Closed 08/30/2017 11/29/2018 1 1 Scheduling Instructions [facility] staff will be co ntacting you to schedule your CBT for Insomnia appointment. LE CUT SAWYER Consult/Transfer Care (Routine) - Closed Specialty Diagnoses / Procedures Referred By Contact Refer red To Contact Diagnoses MARYANNE (obstructive sleep apnea) Tomás Oswald MD [address] [place] [address] Referral ID Status Reason Start Date Expiration Date Visits Requ ested Visits Authorized [id number] Closed 08/30/2017 11/29/2018 1 1 Scheduling Instructions [...] a co-payment, co-insurance and/or deductible. INSURED BY [employer]: If you are in [facility] and plan to use a [facility] or HP Partner Provider of Dental Orthoti cs, we will request prior authorization for you. You will be notified by [facility] of their decision. If approved and if you plan to use a [facility] Provider of Dental Orthotics, the dental office will contact you to schedule an appointment. If you have not been called, please call one of these clinics where this service is provided [facility] . [facility] (scheduling at [facility]) [phone]. If you choose to use a non-HP or HP Part ner provider, you will be responsible for working with your dentist and insurance company to obtain prior authorization. [facility]: You will b e responsible for working with your dentist and insurance company to obtain prior au thorization. Today you will be provided with the order for the dental orthotic. Addit ional information will be provided upon request. It may take up to 4 weeks for y our insurance company to make a determination on prior authorization. LE CUT SAWYER Reason for Visit Reason Comments New Arrival Screening #[address] Roe, neck measures 15 inches. Consult/Transfer Care (Routine) - Closed Specialty Diagnoses / Procedures Referred By Contact Refer red To Contact Diagnoses Obstructive sleep apnea syndrome Jonna Roe MD [address] [place] [address] Referral ID Status Reason Start Date Expiration Date Visits Requ ested Visits Authorized [id number] Closed 08/08/2017 11/07/2018 1 1 Encounter Details Date Type Department Care Team Description 08/30/2017 [facility] Visit [facility] Oswald, MARYANNE (o bstructive sleep apnea) (Primary Dx); [facility] [address] [facility] [address] [facility] [place] [address] [phone] Social History Tobacco Use Types Packs/Day Years Used Date Smoking Tobacco: Never Smokeless Tobacco: Never Alcohol Use Standard Drinks/Week Comments No 0 (1 standard drink = 0.6 oz pure alcoho l) Sex Assigned at Date Recorded Not on file documented as of this encounter Last Filed Vital Signs Vital Sign Reading Time Taken Comments Blood Pressure 132/80 08/30/2017 12:43 PM DOUBLE CUT SAWYER Pulse 60 08/30/2017 12:43 PM DOUBLE CUT SAWYER Temperature 36 ??C (96.8 ??F) 08/30/2017 12:43 PM DOUBLE CUT SAWYER Respiratory Rate 12 08/30/2017 12:43 PM DOUBLE CUT SAWYER Oxygen Saturation 97% 08/30/2017 12:43 PM DOUBLE CUT SAWYER Inhaled Oxygen Concentration - - Weight 83.9 kg (185 lb) 08/30/2017 12:43 PM DOUBLE CUT SAWYER Height 162.6 cm (5' 4) 08/30/2017 12:43 PM DOUBLE CUT SAWYER Body Mass Index 31.76 08/30/2017 12:43 PM DOUBLE CUT SAWYER documented in this encounter Progress Notes Tomás Owsald MD - 08/30/2017 1:00 PM CST Outpatient Sleep Medicine Consultation 08/30/2017 Name: Loc Velasco Age: 62 y.o. Date of : 1955 Date of Consultation: 08/30/2017 Consultation is requested by: Jonna Roe MD [address] [place] [address] Primary care provider: Alisha Kimball MD Reason [...] (FLONASE) 50 MCG/ACT nasal solution Place 1 [place] into both nostrils daily. decreaseto 1 spray [...] Tomás Oswald MD, PhD Diplomate of the [place] Board of Psychiatry and Neurology Certified in Sleep Medicine, [place] Board of Medical Specialties 08/30/2017 CC: Alisha Kimball MD LE CUT SAWYER documented in this encounter Plan of Treatment [...] sleep documented in this encounter Care Teams Prison Officer Relationship Specialty Start Date End Date Alisha Kimball MD PCP - General 07/08/05 [address] [place] [address] documented as of this encounter
--- OUTSIDE RECORDS SUMMARY | 2022-06-10 14:22 | XMS_ITS | Encounter Summary ---
:1955 Author Organization [facility] [facility] Address [address] [place] [address] Care Team Providers Name Role Phone Alisha Kimball MD Primary Care Provider Reason for Visit Reason Comments Follow-up, NOS Encounter Details Date Type Department Care Team Description 05/19/2017 [facility] Cohen, Follow-up, NOS [address] [facility] WELDING OPERATOR, [place] [address] [address] [facility] [phone] [place], [place] [address] (Wo rk) Social History [...] Kareen Cohen APRN, DNP 05/19/2017, 4:53 PM TS [employer] documented in this encounter Plan of Treatment Not on filedocumented as of this encounter Visit Diagnoses Diagnosis Right ear pain - Primary Otalgia, unspecified documented in this encounter Care Teams Relay Assembler Relationship Specialty Start Date End Date Alisha Kimball MD PCP - General 07/08/05 [address] [place] [address] documented as of this encounter
--- OUTSIDE RECORDS SUMMARY | 2022-06-10 14:22 | XMS_ITS | Encounter Summary ---
:1955 Author Organization [email or web address] Address [address] [place] [address] Care Team Providers Name Role Phone Alisha Kimball MD Primary Care Provider Reason for Visit Reason Comments MEDICATION THERAPY MANAGEMENT Encounter Details Date Type Department Care Team Description 10/25/2017 Office Visit [facility] Kailey Christine Essential hypertension [address] [place] Jensen Zavaleta, PharmD (Primary Dx) [place], [place] [id number] Social History Tobacco Use Types Packs/Day Years [...] follow up appointments with me please call: [phone]. To leave a phone message for me please call the clinic directly. [facility] at [phone] (stay onthe line -- don't push an option) and leave a message with the medical secretary receptionist. Kailey Christine, PharmMelany documented in this encounter Progress Notes Kailey Christine PharmMelany - 10/25/2017 7:30 AM CDT Subjective Loc Velasco is a 62 y.o. old female who was referred by Insurance [employer] for medication review/education. Pt reports doing well [...] with MTM Pharmacist in 6 months Updated [employer] med list and reviewed medications including indications with patient. Total time spent with patient 30 minutes. Kailey Christine, AnneD Clinical Pharmacist Medication Therapy Management Program Recipient of visit: Patient Medicare CI: no # of DTPs: 0 # of DTPs resolved: 0 documented in this encounter Plan of Treatment Not on filedocumented as of this encounter Visit Diagnoses Diagnosis Essential hypertension (HRC) - Primary Unspecified essential hypertension documented in this encounter Care Teams Upholsterer Apprentice Relationship Specialty Start Date End Date Alisha Kimball MD PCP - General 07/08/05 [address] [place] [address] documented as of this encounter
--- OUTSIDE RECORDS SUMMARY | 2022-06-10 14:22 | XMS_ITS | Encounter Summary ---
:1955 Author Organization [facility] Address [address] [place] [address] Care Team Providers Name Role Phone Alisha Kimball MD Primary Care Provider Reason for Visit Reason Comments RASH Bilateral front of legs Encounter Details Date Type Department Care Team Description 09/08/2017 Office Visit [facility] Gonsalo Vernon (Pr imary Dx) Practice NAMRATA [place] [address] [place] [address] [place], [place] [address] [place], [place] [phone] [address] Social History Tobacco Use Types Packs/Day Years Used Date Smoking Tobacco: Never Smokeless Tobacco: Never Alcohol Use Standard Drinks/Week Comments No 0 (1 standard drink = 0.6 oz pure alcoho l) Sex Assigned at Date Recorded Not on file documented as of this encounter Last Filed Vital Signs Vital Sign Reading Time Taken Comments Blood Pressure 132/92 09/08/2017 8:42 AM SR SOLUTIONS CONSULTANT Pulse 60 09/08/2017 8:42 AM SR SOLUTIONS CONSULTANT Temperature - - Respiratory Rate 20 09/08/2017 8:42 AM SR SOLUTIONS CONSULTANT Oxygen Saturation - - Inhaled Oxygen Concentration - - Weight - - Height - - Body Mass Index - - documented in this encounter Patient Instructions Patient InstructionsAlex Vernon MBBS - 09/08/2017 8:40 AM SR SOLUTIONS CONSULTANT Images from the original note were not [...] interferes with your normal activities, take an otwp-hgc-gbqhosh antihistamine, such as diphenhydramine (Benadryl) or loratadine [...] can you learn more? 1. Go to [employer]/DB3 Mobile or Pickie/Cloud4Wirary. 2. Enter U711 in the search box. Current as of: April 16, 2016 Content Version: 11.5 ?? [id number] [employer]. Hives: Care Instructions Your Care Instructions [...] area to relieve itching. ?? Take an hzov-wmr-dpdeiat antihistamine, such as diphenhydramine (Benadryl), cetirizine (Zyrtec), [...] can you learn more? 1. Go to [employer] Mobile or Pickie/PredictionIO. 2. Enter K772 in the search box. Current as of: September 21, 2016 Content Version: 11.5 ?? 1022-1594 [employer]. SOLUTIONS CONSULTANT documented in this encounter Progress Notes Alex [...] more than 3 weeks at a time. Vtsv-gwq-aeqzwdg antihistamines to help with the itching. Cool compresses, cool to lukewarm showers. Follow up if there is no improvement over the next 1-2 weeks or worsening of symptoms. Follow up for any evidence of infection or new symptoms. Patient verbalizes understanding and agrees to plan. Please see orders and patient instructions NAMRATA Sharp SOLUTIONS CONSULTANT documented in this encounter Plan of Treatment Not on filedocumented as of this encounter Visit Diagnoses Diagnosis Rash - Primary Rash and other nonspecific skin eruption documented in this encounter Care Teams Highway Maintainer Relationship Specialty Start Date End Date Alisha Kimball MD PCP - General 07/08/05 [address] [place] [address] documented as of this encounter
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
--- OUTSIDE RECORDS SUMMARY | 2022-06-10 14:23 | XMS_ITS | Encounter Summary ---
:1955 Author Organization [employer] Address [address] [place] [address] Care Team Providers Name Role Phone Alisha Kimball MD Primary Care Provider Reason for Referral Procedure/Equipment (Routine) - Closed Specialty Diagnoses / Procedures Referred By Contact Refer red To Contact Diagnoses Sleep disturbance Alvarado Friedman MD [address] [place] [address] Referral ID Status Reason Start Date Expiration Date Visits Requ ested Visits Authorized [id number] Closed 03/30/2017 06/29/2018 1 1 Scheduling Instructions [...] company at a location near the sleep [facility]. At the time you receive your [...] Type Department Care Team Description 03/30/2017 Notes/Orders [facility] Alvarado Friedman S [facility] disturbance Cardiology (Primary Dx) [address] [facility] [address] [place] [address] [place], [place] [phone] Social History Tobacco Use Types Packs/Day Years [...] unspecified documented in this encounter Care Teams City Council Member Relationship Specialty Start Date End Date Alisha Kimball MD PCP - General 07/08/05 [address] [place] [address] documented as of this encounter
--- OUTSIDE RECORDS SUMMARY | 2022-06-10 14:23 | XMS_ITS | Encounter Summary ---
:1955 Author Organization [facility] Address [address] [place] [address] Care Team Providers Name Role Phone Alisha Kimball MD Primary Care Provider Reason for Visit Procedure/Equipment (Routine) - Incomplete Specialty Diagnoses / Procedures Referred By Contact Refer red To Contact Diagnoses Syncope, unspecified syncope type Torey Marcelo MD Procedures NM Card Exercise Rest/Stress Spect [address] [place], [place] [address] Referral ID Status Reason Start Date Expiration Date Visits V isits Requested Authorized [id number] Incomplete 03/04/2017 06/03/2018 6 6 Encounter Details Date Type Department Care Team Description 03/22/2017 [facility] Torey Marcelo, Syncope, unspecified [address] [place] [address] [facility] [phone] [place] [address] (Wo rk) Social History Tobacco [...] am going to refer you to a corporate travel agent for a consultation also. Torey Marcelo MD [...] NM documented in this encounter Visit Diagnoses Diagnosis Syncope, unspecified syncope type documented in this encounter Care Teams Chief Nursing Officer Relationship Specialty Start Date End Date Alisha Kimball MD PCP - General 07/08/05 [address]50 [place] [address] documented as of this encounter
--- OUTSIDE RECORDS SUMMARY | 2022-06-10 14:23 | XMS_ITS | Encounter Summary ---
:1955 Author Organization [facility] [address] [place] [address] Care Team Providers Name Role Phone Alisha Kimball MD Primary Care Provider Reason for Visit Procedure/Equipment (Routine) - Closed Specialty Diagnoses / Procedures Referred By Contact Refer red To Contact Diagnoses Syncope, unspecified [place] [address] [place], [place] [address] Referral ID Status Reason Start Date Expiration Date Visits Requ ested Visits Authorized [id number] Closed 03/04/2017 06/03/2018 1 1 Encounter Details Date Type Department Care Team Description 03/19/2017 Office Visit [facility] Cardiac Non-Invasive Lab [address] [place] [address] Social History Tobacco Use Types Packs/Day Years [...] filedocumented in this encounter Care Teams Manufacturing Teacher Relationship Specialty Start Date End Date Alisha Kimball MD PCP - General 07/08/[address] [place], [place] [id number] documented as of this encounter
--- OUTSIDE RECORDS SUMMARY | 2022-06-10 14:23 | XMS_ITS | Encounter Summary ---
:1955 Author [facility] Address [address] [place] [address] Care Team Providers Name Role Phone Alisha Kimball MD Primary Care Provider Reason for Referral Procedure/Equipment (Routine) - Incomplete Specialty Diagnoses / Procedures Referred By Contact Refer red To Contact Diagnoses Left foot pain Izaiah Rouse DPM Procedures XR Foot Lt AP/Lat/MO/LO 4Vws [address] [place] [address] Referral ID Status Reason Start Date Expiration Date Visits V isits Requested Authorized [id number] Incomplete 01/22/2017 04/23/2018 1 1 Reason for Visit Consult/Transfer Care (Routine) - Closed Specialty Diagnoses / Procedures Referred By Contact Refer red To Contact Diagnoses Alisha Hamilton MD [address] [facility] [place] [address] Referral ID Status Reason Start Date Expiration Date Visits Requ ested Visits Authorized [id number] Closed 12/07/2016 03/08/2018 1 1 Encounter Details Date Type Department Care Team Description 01/22/2017 Office Visit [facility] [place], Ana fo ot pain (Primary Dx); [facility] Izaiah Barker DPM Hallux valgus, left; 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 [address] Social History Tobacco Use Types Packs/Day Years Used Date Smoking Tobacco: Never Smokeless Tobacco: Never Alcohol Use Standard Drinks/Week Comments No 0 (1 standard drink = 0.6 oz pure alcoho l) Sex Assigned at Date Recorded Not on file documented as of this encounter Patient Instructions Patient InstructionsDonatoDorie mccoy MA - 01/22/2017 1:00 PM CDT Thank you for choosing [facility]. If you have any questions or concerns, please contact us at [phone]. For felt metatarsal pads or foam toe separators: www.[employer] www.Apaja Dr. Osullivan's uFaber catalog www.SMGBB PediFix www.DrugSupplyStore.Valopaa Bunion (hallux abducto valgus) A bunion is [...] your condition, please visit these accredited websites: [employer] http://www.acfas.org [employer] http://www.apma.org/ BUNION What is [...] high heels ?? Pain during activities ?? Jolo in between the big toe and second toe ?? Callous formation on the side or bottom of the big toe or big toe joint ?? Callous under the second toe joint (2nd MTPJ) ?? Pain in the second toe joint Diagnosis/Tests (Exam) Your foot doctor (vice president payment) will ask you questions about the symptoms you are having while examining your foot. You will also probably be asked to stand and walk barefoot to further assess your foot function. The presence of a bunion is usually obvious, but sometimes there is more going on that ariel bunion, so your vice president payment will usually take an x-ray. The vice president payment will measure angles between the bones to [...] procedures to repair bunions. 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 Small plantar calcaneal spur. Izaiah LOVEM RAD GD documented in this encounter Visit Diagnoses Diagnosis Left foot pain - Primary Pain in limb Hallux valgus, left Metatarsus adductus Congenital metatarsus varus Left foot pain Pain in limb documented in this encounter Care Teams Rn Teacher Relationship Specialty Start Date End Date Alisha Kimball MD PCP - General 07/08/05 [address] [place] [address] documented as of this encounter
--- OUTSIDE RECORDS SUMMARY | 2022-06-10 14:23 | XMS_ITS | Encounter Summary ---
:1955 Author Organization [facility] Address [address] [place] [address] Care Team Providers Name Role Phone Alisha Kimball MD Primary Care Provider Reason for Visit Reason Comments Follow Up Test Results Event monitor Encounter Details Date Type Department Care Team Description 04/16/2017 Telephone [facility] Alvarado Friedman F ollow Up Test Cardiology MD Results (Event [address] [facility] monitor) [place] [address] [place], [place] [phone] [address] Social History Tobacco Use Types Packs/Day Years Used Date Smoking Tobacco: Never Smokeless Tobacco: Never Alcohol Use Standard Drinks/Week Comments No 0 (1 standard drink = 0.6 oz pure alcoho l) Sex Assigned at Date Recorded Not on file documented as of this encounter Nursing Notes Alisha Mayfield, RN - 04/16/2017 4:54 PM CDT Received fax from [facility] [employer] [facility], Dr. Friedman reviewed and found Atrial Fib. [...] fibrillation documented in this encounter Care Teams Drupal Programmer Relationship Specialty Start Date End Date Alisha Kimball MD PCP - General 07/08/05 [address] [place] [address] documented as of this encounter
--- OUTSIDE RECORDS SUMMARY | 2022-06-10 14:23 | XMS_ITS | Encounter Summary ---
:1955 Author Organization [facility] Address [address] [place] [address] Care Team Providers Name Role Phone Alisha Kimball MD Primary Care Provider Reason for Referral Procedure/Equipment (Routine) - Incomplete Specialty Diagnoses / Procedures Referred By Contact Refer red To Contact Diagnoses Syncope, unspecified syncope type Torey Norton MD Procedures NM Card Exercise Rest/Stress Spect [address] [place] [id number] 24 Referral ID Status Reason Start Date Expiration Date Visits V isits Requested Authorized [id number] Incomplete 03/04/2017 06/03/2018 6 6 Procedure/Equipment (Routine) - Closed Specialty Diagnoses / Procedures Referred By Contact Refer red To Contact Diagnoses Syncope, unspecified [place] [address] [place], [place] [address] Referral ID Status Reason Start Date Expiration Date Visits Requ ested Visits Authorized [id number] Closed 03/04/2017 06/03/2018 1 1 Scheduling Instructions You will be contacted within a week by bk cárdenas regarding your monitor radio interference supervisor. This recommended service may not be cove red by your insurance coverage. We suggest you call your health insurance company a bout your coverage and benefits for this appointment. Reason for Visit Reason Comments LIGHTHEADEDNESS Encounter Details Date Type Department Care Team Description 03/04/2017 Office Visit [place] [facility] Torey Norton Syncope, unspecified syncope type (Primary Dx); Rakesh Sosa MD Diabetes mellitus, type 2 ([facility]) [address] [facility] [place] [address] [place] [address] [phone] Social History Tobacco Use Types Packs/Day Years [...] (primary encounter diagnosis) Plan: ECG 12-LEAD ROUTINE [144451], Complete Blood Count-No Diff, Basic Metabolic Panel, [...] prior study available. ?? Roddy Thurston MD, MARISOL, TONYA (Electronically Signed) Final Date: ?22 March [...] March 2017 11:40 Torey Norton MD RAD NM ECG 12-LEAD ROUTINE [[id number]] (03/04/2017 9:40 AM CDT) P athologist Signature Ventricular Rate 75 BPM [facility] Atrial Rate 75 BPM [facility] P-R Interval 150 ms [facility] QRS Duration 86 ms [facility] QT 394 ms [facility] QTc 439 ms [facility] P [place] 55 degrees [facility] R [place] 37 degrees [facility] T [place] 39 degrees [facility] Specimen (Source) Anatomical Collection Method Collection Time Re ceived Time Location / / Volume Laterality 03/04/2017 9:40 AM CDT Narrative [facility] - 03/12/2017 11:27 AM CDT Sinus rhythm with Premature atrial complexes Otherwise normal ECG No previous ECGs available Confirmed by MD NORTON MARVIN G ([id number]), KIARA Nunez ([id number]) on 03/12/2017 11:27:44 AM Procedure Note Torey Norton MD - 03/12/2017Form atting of this note might be different from the original. Sinus rhythm with Premature atrial compl exes Otherwise normal ECG No previous ECGs available Confirmed by MD NORTON MARVIN G ([id number]), KIARA Nunez ([id number]) on 03/12/2017 11:27:44 AM Torey Norton MD [...] 03/04/2017 3:36 PM C DT Performed at [facility], [address] [place] [address] Torey Norton MD LAB_1 Performing Organization Address City/State/ZIP Code Phon e Number [facility] [phone] Basic Metabolic Panel (03/04/2017 9:26 AM CDT) [...] 03/04/2017 3:55 PM C DT Performed at [facility], [address] [place] [address] ??[address] Torey Norton MD LAB_1 Performing Organization Address City/State/ZIP Code Phon e Number [facility] [phone] Complete Blood Count-No Diff (03/04/2017 9:26 AM [...] 03/04/2017 4:02 PM C DT Performed at [facility], [address] [place] [address] ??[address] Torey Norton MD LAB_1 Performing Organization Address City/State/ZIP Code Phon e Number [facility] [phone] documented in this encounter Visit Diagnoses Diagnosis [...] type documented in this encounter Care Teams Grader Tender Relationship Specialty Start Date End Date Alisha Kimball MD PCP - General 07/08/05 [address] [place] [address] documented as of this encounter
--- OUTSIDE RECORDS SUMMARY | 2022-06-10 14:23 | XMS_ITS | Encounter Summary ---
:[address] [address] Address [address], [place] [address] Care Team Providers Name Role Phone Alisha Kimball MD Primary Care Provider Encounter Details Date Type Department Care Team Description 03/04/2017 Notes/Orders [facility] Torey Marcelo Syncope, unspecified syncope type; Practice MD Ian Diabetes mellitus, type 2 ([facility]) [address] [address] [phone] Social History Tobacco Use Types Packs/Day Years [...] 03/04/2017 3:36 PM C DT Performed at [facility], [address] [place] [address] Torey Marcelo MD LAB_1 Performing Organization Address City/State/ZIP Code Phon e Number [facility] [phone] Basic Metabolic Panel (03/04/2017 9:26 AM CDT) [...] 03/04/2017 3:55 PM C DT Performed at [address] ??[address] Torey Marcelo MD LAB_1 Performing Organization Address [facility] Phon e Number [facility] [phone] Complete Blood Count-No Diff (03/04/2017 9:26 AM [...] 03/04/2017 4:02 PM C DT Performed at [address] ??[address] Torey Marcelo MD LAB_1 Performing Organization Address City/[facility] Phon e Number [facility] [phone] documented in this encounter Visit Diagnoses Diagnosis Syncope, unspecified syncope type Diabetes mellitus, type 2 ([facility]) Type II or unspecified type diabetes dinora litus without mention of complication, not stated as uncontrolled documented in this encounter Care Teams Agricultural Pilot Relationship Specialty Start Date End Date Alisha Kimball MD PCP - General 07/08/05 [address] [place] [address] documented as of this encounter
--- OUTSIDE RECORDS SUMMARY | 2022-06-10 14:23 | XMS_ITS | Encounter Summary ---
:1955 Author Organization [facility] Address [address] [place] [address] Care Team Providers Name Role Phone Alisha Kimball MD Primary Care Provider Reason for Visit Reason Comments Future Appointments Encounter Details Date Type Department Care Team Description 01/28/2017 Telephone [facility] Tesha Maxwell, Future Appointments [address] [facility] [place] [address] [facility] [phone] [place], [place] [address] (Wo rk) Social History [...] on filedocumented in this encounter Care Teams Locomotive Firer/Fireman Relationship Specialty Start Date End Date Alisha Kimball MD PCP - General 07/08/05 [address] [facility] [place] [place] [phone] documented as of this encounter
--- OUTSIDE RECORDS SUMMARY | 2022-06-10 14:23 | XMS_ITS | Encounter Summary ---
:1955 Author Organization [facility] Address [address] [place] [address] Care Team Providers Name Role Phone Carroll Avalos MD Primary Care Provider Reason for Visit Reason Comments Refill atorvastatin (LIPITOR) 10 MG tablet [Pharmacy Med Name: ATORVASTATIN 10MG TABS] Encounter Details Date Type Department Care Team Description [facility] Refill (atorvastatin [address] [facility] [address] (LIPITOR) 10 [place] [address] [place] [address] [Pharmacy Med Name: [phone] (Wo rk) ATORVASTATIN 10MG TABS]) Social History [...] LDL: 82 mg/dL on 12/01/2016 Powered by [employer], Reference: [id number], 01/22/2017 3:19:00 AM CDT, Pool: ARNOLD AMEZQUITA RN ([id number]) Interface, Out Fritter Query - 01/22/2017 3:19 AM CDT The [...] on filedocumented in this encounter Care Teams Dipper And Baker Relationship Specialty Start Date End Date Carroll Avalos MD PCP - General 07/08/05 [address] [place], [place] [phone] documented as of this encounter
--- OUTSIDE RECORDS SUMMARY | 2022-06-10 14:23 | XMS_ITS | Encounter Summary ---
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 [address] [address] [facility] [phone] [place], [place] [phone] Social History Tobacco Use Types Packs/Day Years [...] a couple days ago. A1C- 7.2 11/2016. TBa7sam? Routine Eye Exam Loc [place] is a [...] Presbyopia documented in this encounter Care Teams Cpas Relationship Specialty Start Date End Date Alisha Kimball MD PCP - General 07/08/[address] [place] [address] documented as of this encounter
--- OUTSIDE RECORDS SUMMARY | 2022-06-10 14:23 | XMS_ITS | Encounter Summary ---
:1955 Author Organization [employer] Address [address] [address] Care Team Providers Name Role Phone Alisha Kimball MD Primary Care Provider Reason for Visit Reason Comments RESULTS, TEST Encounter Details Date Type Department Care Team Description 03/23/2017 Telephone [facility] Torey Marcelo MD RESULTS, TEST Practice [address] [facility] [address] [place] [address] [place], [place] [address] [phone] Social History Tobacco Use Types Packs/Day Years [...] was an appt on 03/19 for the forging press setter up and she turned it in yesterday. She [...] am going to refer you to a rn interventional for a consultation also. Torey Marcelo MD 03/23/2017, 12:52 PM documented in this encounter Plan of Treatment Not on filedocumented as of this encounter Visit Diagnoses Not on filedocumented in this encounter Care Teams It Solutions Architect Relationship Specialty Start Date End Date Alisha Kimball MD PCP - General 07/08/05 [address] [place] [address] documented as of this encounter
--- OUTSIDE RECORDS SUMMARY | 2022-06-10 14:23 | XMS_ITS | Encounter Summary ---
:1955 Author Organization [facility] Address [address] [place] [address] Care Team Providers Name Role Phone Alisha Kimball MD Primary Care Provider Encounter Details Date Type Department Care Team Description 03/25/2017 Orders Only [facility] Torey Marcelo, Cardiac Non-Invasive Lab [address] [place] [address] [place], [place] [phone] (Wo rk) Social History Tobacco Use Types [...] Name Priority Date/Time Associated Diagnosis Comme nts INSTANT PRINT OPERATOR 03/25/2017 12:00 AM Resul ts for this CDT procedure are i n the results section. documented in this encounter Results INSTANT PRINT OPERATOR (03/25/2017 12:00 AM CDT) Specimen (Source) Anatomical Location Collection Method / Collectio n Time Received Time / Laterality Volume 03/25/2017 Narrative This result has an attachment that is no t available. Torey Marcelo MD DUMMY/OTHER/AR documented in this encounter Visit Diagnoses Not on filedocumented in this encounter Care Teams Trimming Department Blocker Relationship Specialty Start Date End Date Alisha Kimball MD PCP - General 07/08/[address] [place] [address] documented as of this encounter
--- OUTSIDE RECORDS SUMMARY | 2022-06-10 14:23 | XMS_ITS | Encounter Summary ---
:1955 Author Organization [facility] Address [address] [place] [address] Care Team Providers Name Role Phone Alisha Kimball MD Primary Care Provider Reason for Visit Procedure/Equipment (Routine) - Closed Specialty Diagnoses / Procedures Referred By Contact Refer red To Contact Diagnoses PAF (paroxysmal atrial fibrillation) (HRC) Alvarado Friedman MD [address] [place] [address] Referral ID Status Reason Start Date Expiration Date Visits Requ ested Visits Authorized [id number] Closed 03/30/2017 06/29/2018 1 1 Encounter Details Date Type Department Care Team Description 04/22/2017 Office [facility] fibrillation (HRC) [address] [facility] (Primary Dx) [place], [place] [phone] Social History Tobacco Use Types Packs/Day Years [...] AM CDT Alvarado Friedman MD [facility] MACHINE MILKER/RH Performing Organization Address City/State/ZIP Code Phon e Number [facility] [address] [place] [address] CARDIAC ROUTINE ECHOCARDIOGRAM (04/22/2017 10:16 AM CDT) [...] Phon e Number [facility] [address] [place] [address] documented in this encounter Visit Diagnoses Diagnosis Paroxysmal atrial fibrillation (HRC) - P rimary Atrial fibrillation documented in this encounter Care Teams Press Operator Meat Relationship Specialty Start Date End Date Alisha Kimball MD PCP - General 07/08/05 [address] [place] [address] documented as of this encounter
--- OUTSIDE RECORDS SUMMARY | 2022-06-10 14:23 | XMS_ITS | Encounter Summary ---
:1955 Author Organization [employer] Address [address] [place] [address] Care Team Providers Name Role Phone Carroll Avalos MD Primary Care Provider Reason for Visit Reason Comments Refill amLODIPine (NORVASC) 5 MG ta blet [Pharmacy Med Name: AMLODIPINE 5MG TAB] Encounter Details Date Type Department Care Team Description 01/22/2017 [facility] Carroll Avalos MD Refill (amLODIPine [address] [facility] [address] (NORVASC) 5 [place] [address] [place] [address] [Pharmacy Med Name: [phone] (Wo rk) AMLODIPINE 5MG TAB]) Social History [...] 79 mm Hg on 12/07/2016 Powered by [employer] Reference: [id number], 01/22/2017 3:19:00 AM CDT, Pool: ARNOLD AMEZQUITA RN ([id number]) documented in this encounter Plan of Treatment Not on filedocumented as of this encounter Visit Diagnoses Not on filedocumented in this encounter Care Teams Gasoline Dragline Operator Relationship Specialty Start Date End Date Carroll Avalos MD PCP - General 07/08/05 [address] [place] [address] documented as of this encounter
--- OUTSIDE RECORDS SUMMARY | 2022-06-10 14:23 | XMS_ITS | Encounter Summary ---
:1955 Author Organization Replaced by [facility] Address [address] [place] [address] Care Team Providers Name Role Phone Alisha Kimball MD Primary Care Provider Reason for Visit Procedure/Equipment (Routine) - Incomplete Specialty Diagnoses / Procedures Referred By Contact Refer red To Contact Diagnoses Left foot pain Izaiah Rouse, DPM Procedures XR Foot Lt AP/Lat/MO/LO 4Vws [address] [place] [address] Referral ID Status Reason Start Date Expiration Date Visits V isits Requested Authorized [id number] Incomplete 01/22/2017 04/23/2018 1 1 Encounter Details Date Type Department Care Team Description 01/22/2017 [facility] Garry Rouse R, Left foot pain Center [address] Radiology DPM [address] [place] [address] [place] [address] [phone] (Wo rk) Social History Tobacco Use Types [...] limb documented in this encounter Care Teams Group Underwriter Relationship Specialty Start Date End Date Alisha Kimball MD PCP - General 07/08/05 [address] [place] [address] documented as of this encounter
--- OUTSIDE RECORDS SUMMARY | 2022-06-10 14:23 | XMS_ITS | Encounter Summary ---
:1955 Author Organization [facility] Address [address] [place] [address] Care Team Providers Name Role Phone Alisha Kimball MD Primary Care Provider Reason for Visit Procedure/Equipment (Routine) - Incomplete Specialty Diagnoses / Procedures Referred By Contact Refer red To Contact Diagnoses Syncope, unspecified syncope type Torey Marcelo MD Procedures NM Card Exercise Rest/Stress Spect [address] [place], [place] [address] Referral ID Status Reason Start Date Expiration Date Visits V isits Requested Authorized [id number] Incomplete 03/04/2017 06/03/2018 6 6 Encounter Details Date Type Department Care Team Description 03/22/2017 Office Visit [facility] Torey Marcelo, Cardiac Non-Invasive Lab [address] [place] [address] [place] [address] [place], [place] [phone] (Wo rk) Social History Tobacco Use Types [...] within one week. Please follow up with [facility] if you have not received your [...] will follow up with Dr Marcelo at [facility]. Test done with claims adjuster supervisor present: no 20 gauge IV catheter inserted [...] Date: 22 March 2017 11:40 Torey Ian Marcelo MD RAD NM documented in this encounter Visit Diagnoses Not on filedocumented in this encounter Care Teams Line Camera Operator Relationship Specialty Start Date End Date Alisha Kimball MD PCP - General 07/08/05 [address] [place] [address] documented as of this encounter
--- OUTSIDE RECORDS SUMMARY | 2022-06-10 14:23 | XMS_ITS | Encounter Summary ---
:1955 Author Organization [facility] Address [address] [place] [address] Care Team Providers Name Role Phone Alisha Kimball MD Primary Care Provider Reason for Visit Procedure/Equipment (Routine) - Incomplete Specialty Diagnoses / Procedures Referred By Contact Refer red To Contact Diagnoses Elevated liver enzymes Alisha Kimball MD Procedures US Abd Complete [address] [place] [address] Referral ID Status Reason Start Date Expiration Date Visits V isits Requested Authorized [id number] Incomplete 12/09/2016 03/10/2018 1 1 Encounter Details Date Type Department Care Team Description 12/17/2016 Imaging [facility] Specialty Alisha Kimball, Elevated liver enzymes Center Ultrasound [address] [place] [address] [place] [address] [phone] Social History Tobacco Use Types Packs/Day Years [...] (LDH) documented in this encounter Care Teams Diesel Technician Relationship Specialty Start Date End Date Alisha Kimball MD PCP - General 07/08/05 [address] [place] [address] documented as of this encounter
--- OUTSIDE RECORDS SUMMARY | 2022-06-10 14:23 | XMS_ITS | Encounter Summary ---
:1955 Author Organization [facility] Address [address] [place] [address] Care Team Providers Name Role Phone Alisha Kimball MD Primary Care Provider Encounter Details Date Type Department Care Team Description 03/04/2017 [place] [facility] [place] [address] [place], [place] [address] Social History Tobacco Use [...] on filedocumented in this encounter Care Teams Carpet Layer Helper Relationship Specialty Start Date End Date Alisha Kimball MD PCP - General 07/08/[address] [place], [place] [id number] documented as of this encounter
--- OUTSIDE RECORDS SUMMARY | 2022-06-10 14:23 | XMS_ITS | Encounter Summary ---
:1955 Author Organization [facility] Address [address] [place] [address] Care Team Providers Name Role Phone Alisha Kimball MD Primary Care Provider Reason for Referral Procedure/Equipment (Routine) - Incomplete Specialty Diagnoses / Procedures Referred By Contact Refer red To Contact Diagnoses Snoring Excessive daytime sleepiness Alvarado Friedman MD [address] [place] [address] Referral ID Status Reason Start Date Expiration Date Visits V isits Requested Authorized [id number] Incomplete 03/30/2017 06/29/2018 1 1 Scheduling Instructions [...] next 7 days, please contact us at [phone]. Procedure/Equipment (Routine) - Closed Specialty Diagnoses / Procedures Referred By Contact Refer red To Contact Diagnoses PAF (paroxysmal atrial fibrillation) (HRC) Alvarado Friedman MD [address] [place] [address] Referral ID Status Reason Start Date Expiration Date Visits Requ ested Visits Authorized [id number] Closed 03/30/2017 06/29/2018 1 1 Scheduling Instructions You will be contacted within a week by bk cárdenas regarding your monitor claims support specialist. This recommended service may not be cove red by your insurance coverage. We suggest you call your health insurance company a bout your coverage and benefits for this appointment. Procedure/Equipment (Routine) - Closed Specialty Diagnoses / Procedures Referred By Contact Refer red To Contact Diagnoses PAF (paroxysmal atrial fibrillation) (HRC) Alvarado Friedman MD [address] [place] [address] Referral ID Status Reason Start Date Expiration Date Visits Requ ested Visits Authorized [id number] Closed 03/30/2017 06/29/2018 1 1 Scheduling Instructions Your provider has recommended an appoint ment with [facility] Cardiology. You may call [phone] to schedule your appoi ntment. If you prefer, a patient scheduler will contact you within the next 3 business d ays to assist you in setting up this appointment. We suggest you call your city hospital insurance company about your coverage and benefits for this appointment. Reason for Visit Reason Comments CONSULT Consult/Transfer Care (Routine) - Closed Specialty Diagnoses / Procedures Referred By Contact Refer red To Contact Diagnoses Syncope, [place] [address] [place], [place] [address] Referral ID Status Reason Start Date Expiration Date Visits Requ ested Visits Authorized [id number] Closed 03/23/2017 06/22/2018 1 1 Encounter Details Date Type Department Care Team Description 03/30/2017 Office Visit [facility] Alvarado Friedman P AF (paroxysmal atrial fibrillation) ([facility]) (Primary Dx); Cardiology Pre-syncope; [address] [place] [address]. [address] [place] [address] Syncope and collapse; [place] [address] [place], [place] Snoring; [phone] Excessive daytime sleepiness Social History Tobacco Use [...] Advanced Care Provider. Thank you for choosing [facility] for your Cardiology care. You may contact us at [facility] at [phone]. After hours, you may contact the Care Line at [phone] or . Learning About Atrial Fibrillation What is atrial fibrillation? Atrial fibrillation (say AY-tree-rosendo cib-swwn-LYS-shun) is the most common type of irregular [...] can you learn more? 1. Go to [employer] or [employer]/onlinelibrary. 2. Enter L274 in the search box. Current as of: September 30, 2015 Content Version: 11.3 ?? [id number] Driver Hire, [facility]. Apixaban (Eliquis) Taking an anticoagulant [...] taking apixaban and any other prescription and fqgs-jif-uteavso medications, including herbal supplements and vitamins. In [...] to treat certain types of infection Rodrigo???s Wort([place] perforatum) Herbal product--used to help treat depression [...] keep this appointment, please call the [facility] at [phone]. BEFORE THE TEST: You do not need to do anything special to prepare for the test. DURING THE TEST: A inspector structural bonding will explain the test to you. An ultrasound transducer and gel will be placed on your chest and pictures will be made. Some tests require the use of a contrast solution. This is given through an intravenous needle (IV) that is placed in your hand or arm. The contrast solution helps the healthcare administration intern take better pictures of your heart. AFTER THE EXAM: Your test results will be sent to your physician, who will discuss the results with you. WHERE DO I GO IF MY TEST IS BEING PERFORMED AT [facility]? If this test is performed in the [facility], it is located on the second (main) floor of [facility]. family services worker can direct you to the proper area. Environmental Compliance Specialist locations are at the main entrance, at the south entrance and at the north entrance. HOW TO GET TO [facility]: [facility] is located at the intersection of [facility] and [facility], just a few blocks away from the [facility] and the junction of [facility] [address]. For automated directions, call . PARKING: The west parking ramp is the most convenient place to park for [facility] appointments. The west [facility] entrance is off of [facility]. To receive a reduction in your parking fee, please ask the [facility] receptionist to validate your parking ticket. WHERE DO I GO IF MY TEST IS BEING PERFORMED AT THE [facility]? Call [phone] for directions. HEART MONITORING TECHNIQUES Please remember [...] scanned on a special machine while a survey field technician looks for any changes in heartbeat [...] of need! They can not be applied eoijh-azv-ucgn. They must always be in place so [...] HISTORY: Non smoker FAMILY HISTORY: Dad had MA in 60s pGFA MA at 59 PGMa had CVA in 70s [...] r.o structural heart disease. Recommend screening for MARYNANE Would avoid / minimize caffeine / alcohol 3. CHADSVAS 3 (HTN, DM, female) We discussed risk of stroke associated with afib. We discussed risks/benefits of anticoagulation using [facility] anticoagulation camille We will likely start apixaban [...] contact me. Alvarado Friedman MD Cardiology Pager [phone] documented in this encounter Plan of Treatment [...] sleepiness documented in this encounter Care Teams Marbleizer Relationship Specialty Start Date End Date Alisha Kimball MD PCP - General 07/08/05 [address] [place] [address] documented as of this encounter
--- OUTSIDE RECORDS SUMMARY | 2022-06-10 14:23 | XMS_ITS | Encounter Summary ---
:1955 Author Organization [facility] Address [address] [place] [address] Care Team Providers Name Role Phone Alisha Kimball MD Primary Care Provider Reason for Visit Reason Comments ERRONEOUS ENTRY Encounter Details Date Type Department Care Team Description 03/05/2017 Telephone [facility] Torey Marcelo ERRONEOUS ENTRY [address] [place], [place] [address] Social History Tobacco Use [...] filedocumented in this encounter Care Teams Hand Rug Cleaner Relationship Specialty Start Date End Date Alisha Kimball MD PCP - General 07/08/[address] [place], [place] [id number] documented as of this encounter
--- OUTSIDE RECORDS SUMMARY | 2022-06-10 14:24 | XMS_ITS | Encounter Summary ---
:1955 Author Organization [facility] Address [address] [place] [address] Care Team Providers Name Role Phone Alisha Kimball MD Primary Care Provider Encounter Details Date Type Department Care Team Description 06/15/2016 Lab Visit [facility] or Essential hypertension [address] [place], [place] [address] Social History Tobacco Use Types Packs/Day Years Used Date Smoking Tobacco: Never Smokeless Tobacco: Never Alcohol Use Standard Drinks/Week Comments No 0 (1 standard drink = 0.6 oz pure alcoho l) Sex Assigned at Date Recorded Not on file documented as of this encounter Progress Notes Tesha Maxwell PharmD - 06/17/2016 11:02 AM SORORITY SUPERVISOR Quick Note: Normal labs. Will discuss at clinic visit 06/18/16. Tesha Maxwell PharmD 06/17/2016, 11:02 AM RITY SUPERVISOR documented in this encounter Plan of Treatment Not on filedocumented as of this encounter Procedures Procedure Name Priority Date/Time Associated Diagnosis Comme nts CREATININE / GFR Routine 06/15/2016 4:28 PM Essential hyperten bobbi Results for this SORORITY SUPERVISOR procedure are i n the results section. POTASSIUM Routine 06/15/2016 4:28 PM Essential hypertension Results for this SORORITY SUPERVISOR procedure are i n the results section. documented in this encounter Results Creatinine / GFR (06/15/2016 4:28 PM SORORITY SUPERVISOR) Analysis Performed At Patho logist Time Signature Creatinine 0.92 0.55 - [facility] 1.02 mg/dl LABORATORIES GFR, Estimated >60 >60 [facility] ml/min/1.7 LABORATORIES 3m2 GFR, Est., If >60 >60 [facility] Black ml/min/1.7 LABORATORIES 3m2 Specimen Anatomical Collection Method Collection Time Receive d Time (Source) Location / / Volume Laterality 06/15/2016 4:28 PM 6 4:29 SORORITY SUPERVISOR PM SORORITY SUPERVISOR Narrative [facility] - 06/15/2016 6:[address] Performed at [facility], [address] [place] [id number] Alisha Kimball MD LAB_1 Performing Organization Address City/[facility] Phon e Number [facility] [phone] Potassium (06/15/2016 4:28 PM SORORITY SUPERVISOR) P athologist Signature Potassium 4.2 3.5 - 5.1 [facility] mmol/L Specimen Anatomical Collection Method Collection Time Receive d Time (Source) Location / / Volume Laterality 06/15/2016 4:28 PM 6 4:29 SORORITY SUPERVISOR PM SORORITY SUPERVISOR Narrative [facility] - 06/15/2016 6:[address] Performed at [facility], [address] [place] [address] Alisha Kimball MD LAB_1 Performing Organization Address City/[facility] Phon e Number [facility] [phone] documented in this encounter Visit Diagnoses Diagnosis Essential hypertension (HRC) Unspecified essential hypertension documented in this encounter Care Teams Silver Plater Relationship Specialty Start Date End Date Alisha Kimball MD PCP - General 07/08/05 [address] [place] [address] documented as of this encounter
--- OUTSIDE RECORDS SUMMARY | 2022-06-10 14:24 | XMS_ITS | Encounter Summary ---
:1955 Author Organization [facility] Address [address] [place] [address] Care Team Providers Name Role Phone Alisha Kimball MD Primary Care Provider Encounter Details Date Type Department Care Team Description 12/07/2016 Lab Visit [facility] Need for hepatitis C screeni ng test; [address] [place] [address] Social History Tobacco Use [...] A Antibody, IgG (12/07/2016 9:21 AM CDT) [facility] Method Time Signature Hepatitis A Negative POSR [facility] Ab, IgG (Non LABORATORIES Reactive) (A) Specimen Anatomical Collection Method Collection Time Receive d Time (Source) Location / / Volume [facility] 12/07/2016 9:21 AM 7 9:22 CDT AM CDT Narrative [facility] - 12/07/2016 5:10 PM C DT Performed at [facility], [address] [place] [address] ??[id number] Alisha Kimball MD LAB_1 Performing Organization Address City/[facility] Phon e Number [facility] [phone] Ferritin (12/07/2016 9:21 AM CDT) [facility] Signature Ferritin 114 9 - 204 [facility] ng/ml Specimen Anatomical Collection Method Collection Time Receive d Time (Source) Location / / Volume Laterality 12/07/2016 9:21 AM 7 9:22 CDT AM CDT Narrative [facility] - 12/07/2016 1:54 PM C DT Performed at [facility], [address] [place] [address] ??[id number] Alisha Kimball MD LAB_1 Performing Organization Address [facility] Phon e Number [facility] [phone] Ceruoplasmin (12/07/2016 9:21 AM CDT) Component Value Ref Test Analysis Performed At [facility] Range Method Time Signature Ceruloplasmin 21 [facility] Reference range: 17 to 54 [facility] Unit: mg/dL Ceruloplasmin (NOTE) [facility] REFERENCE INTERVAL: Ceruloplasmin LABORATORIES Access complete set of age- and/or gender-specific reference ?? intervals for this test in the [facility] Warp Changer y ?? ([facility] [address] [email or web address], Sadi Alba MD, Lab. Director Specimen Anatomical Collection Method Collection Time Receive d Time (Source) Location / / Volume Laterality 12/07/2016 9:21 AM 7 9:22 CDT AM CDT Narrative [facility] - 12/08/2016 1:54 PM C DT Performed by [facility], [address] [place], [place] [address] Alisha Kimball MD LAB_1 Performing Organization Address City/[facility] Code Phon e Number [facility] [phone] SELAM Screen (12/07/2016 9:21 AM CDT) athologist Signature SELAM Screen Negative NEG [facility] Specimen Anatomical Collection Method Collection Time Receive d Time (Source) Location / / Volume Laterality 12/07/2016 9:21 AM 7 9:22 CDT AM CDT Narrative [facility] - 12/08/2016 4:48 PM C DT Performed at [address] ??[id number] Alisha Kimball MD LAB_1 Performing Organization Address City/[facility]/ZIP Code Phon e Number [facility] [phone] ESR (12/07/2016 9:21 AM CDT) athologist Signature ESR 6 0 - 20 [facility] mm/hr Specimen Anatomical Collection Method Collection Time Receive d Time (Source) Location / / Volume Laterality 12/07/2016 9:21 AM 7 9:22 CDT AM CDT Narrative [facility] - 12/07/2016 2:59 PM C DT Performed at [facility], [address] [place] [address] ??[address] Alisha Kimball MD LAB_1 Performing Organization Address City/[facility] Phon e Number [facility] [phone] HBsAg (Hepatitis B Surface Antigen) (12/07/2016 9:21 AM CDT) [facility] Time Signature HBsAg Negative (Non NEGNR [facility] Reactive) LABORATORIES Specimen Anatomical Collection Method Collection Time Receive d Time (Source) Location / / Volume Laterality 12/07/2016 9:21 AM 7 9:22 CDT AM CDT Narrative [facility] - 12/07/2016 5:10 PM C DT Performed at [address] ??[id number] Alisha Kimball MD LAB_1 Performing Organization Address [facility] Phon e Number [facility] [phone] (ABNORMAL) Hepatitis B Surface Antibody (12/07/2016 9:21 AM CDT) [facility] Time Signature Hep B Surf AB [...] 12/07/2016 5:11 PM C DT Performed at [facility], [address] [place] [address] ??[address] Alisha Kimball MD LAB_1 Performing Organization Address City/[facility] Phon e Number [facility] [phone] (ABNORMAL) Liver Panel(Hepatic Function Panel) (12/07/2016 9:21 AM CDT) [facility] Time Signature Alkaline 85 40 - 150 [...] 12/07/2016 1:39 PM C DT Performed at [address] ??[id number] Alisha Kimball MD LAB_1 Performing Organization Address City/[facility] Phon e Number [facility] [phone] HEP C recommended for patients born between 7556-2100 (12/07/2016 9:21 AM CDT) [facility] Method Time Signature Anti-HCV Negative (Non NEGNR [facility] Reactive) LABORATORIES Comment: Antibodies to HCV not detected. Does not exclude the possibility of exposure to HCV. Specimen Anatomical Collection Method Collection Time Receive d Time (Source) Location / / Volume Laterality 12/07/2016 9:21 AM 7 9:22 CDT AM CDT Narrative [facility] - 12/07/2016 2:01 PM C DT Performed at [address] ??[address] Alisha Kimball MD LAB_1 Performing Organization Address City/[facility] Phon e Number [facility] [phone] documented in this encounter Visit Diagnoses Diagnosis Need for hepatitis C screening test Special screening examination for other specified viral diseases Elevated liver enzymes Nonspecific elevation of levels of trans aminase or lactic acid dehydrogenase (LDH) documented in this encounter Care Teams Switch Crew Supervisor Relationship Specialty Start Date End Date Alisha Kimball MD PCP - General 07/08/05 [address] [place] [address] documented as of this encounter
--- OUTSIDE RECORDS SUMMARY | 2022-06-10 14:24 | XMS_ITS | Encounter Summary ---
:1955 Author Organization [facility] Address [address] [place] [address] Care Team Providers Name Role Phone Alisha Kimball MD Primary Care Provider Reason for Visit Reason Comments MEDICATION THERAPY MANAGEMENT Encounter Details Date Type Department Care Team Description 10/22/2016 Office Visit [facility] Tesha Maxwell, Essential hypertension (Prim levy Dx); [address] [facility] PharmD Diabetes mellitus, type 2 (HRC); [place], [place] [address] Hypercholeste rolemia [address] [facility] [phone] [place] [address] Social History Tobacco Use Types [...] you have questions. Thanks, Tesha Maxwell PharmD [facility] on Wednesday & Wednesday [facility] on & Wednesday documented in this [...] sooner if questions or concerns arise. Updated [facility] list and reviewed medications including indications with [...] hypercholesterolemia documented in this encounter Care Teams Rear Admiral Relationship Specialty Start Date End Date Alisha Kimball MD PCP - General 07/08/05 [address] [place] [address] documented as of this encounter
--- OUTSIDE RECORDS SUMMARY | 2022-06-10 14:24 | XMS_ITS | Encounter Summary ---
:1955 Author Organization [facility] Address [address] [place] [address] Care Team Providers Name Role Phone Alisha Kimball MD Primary Care Provider Reason for Referral Consult/Transfer Care (Routine) - Closed Specialty Diagnoses / Procedures Referred By Contact Refer red To Contact Diagnoses Alisha Hamilton MD [address] [place] [address] Referral ID Status Reason Start Date Expiration Date Visits Requ ested Visits Authorized [id number] Closed 12/07/2016 03/08/2018 1 1 Scheduling Instructions If an appointment with [facility] Fo ot and Ankle Surgery was advised and you have not been contacted to schedule that appo intment within 3 business days, please call [phone] for assistance. We suggest you call your [...] [address] Elevated liver enzymes; [place] [address] [place] [address] Need for hepatitis C screening test; [phone] Cb (Work) Social History Tobacco Use Types [...] this encounter Patient Instructions Patient InstructionsFrancesca Cho, ELECTRIC TRACK SWITCH MAINTAINER - 12/07/2016 8:15 AM CDT Images from [...] can you learn more? 1. Go to [employer] or [employer]. 2. Enter Y074 in the search box. Current as of: January 21, 2016 Content Version: 11.2 ?? 0611-6975 [employer], SPEEDELO. Nonalcoholic Steatohepatitis (SMITH): Care Instructions Your Care [...] can you learn more? 1. Go to [employer] or [employer]. 2. Enter F761 in the search box. Current as of: February 11, 2016 Content Version: 11.2 ?? 4870-5885 [employer], SPEEDELO. documented in this encounter Progress Notes Alisha [...] HEP C recommended for patients born between 6695-0747 Liver Panel(Hepatic Function Panel) Hepatitis B Surface Antibody HBsAg (Hepatitis B Surface Antigen) ESR SELAM Screen Ceruoplasmin Ferritin Hepatitis A Antibody, IgG 4. Need for hepatitis C screening test Z11.59 HEP C recommended for patients born between 8797-4696 5. Bunion M21.619 Foot & Ankle/Podiatry Consult-Adult/Peds [...] A Antibody, IgG (12/07/2016 9:21 AM CDT) [facility] Method Time Signature Hepatitis A Negative POSR [facility] Ab, IgG (Non LABORATORIES Reactive) (A) Specimen Anatomical Collection Method Collection Time Receive d Time (Source) Location / / Volume Laterality 12/07/2016 9:21 AM 7 9:22 CDT AM CDT Narrative [facility] - 12/07/2016 5:10 PM C DT Performed at [facility], [address] [place] [address] ??[address] Alisha Kimball MD LAB_1 Performing Organization Address City/[facility] Phon e Number [facility] [phone] Ferritin (12/07/2016 9:21 AM CDT) athologist Signature Ferritin 114 9 - 204 [facility] ng/ml Specimen Anatomical Collection Method Collection Time Receive d Time (Source) Location / / Volume Laterality 12/07/2016 9:21 AM 7 9:22 CDT AM CDT Narrative [facility] - 12/07/2016 1:54 PM C DT Performed at [facility], [address] [place] [address] ??[address] Alisha Kimball MD LAB_1 Performing Organization Address City/[facility] Phon e Number [facility] [phone] Ceruoplasmin (12/07/2016 9:21 AM CDT) Component Value Ref Test Analysis Performed At [facility] gist Range Method Time Signature Ceruloplasmin 21 [facility] Reference range: 17 to 54 [facility] Unit: mg/dL Ceruloplasmin (NOTE) [facility] REFERENCE INTERVAL: Ceruloplasmin LABORATORIES Access complete set of age- and/or gender-specific reference ?? intervals for this test in the [facility] Metallography Teacher y ?? ([employer] [facility] [place] [address] www.[employer], Sadi Alba MD, Lab. Director Specimen Anatomical Collection Method Collection Time Receive d Time (Source) Location / / Volume Laterality 12/07/2016 9:21 AM 7 9:22 CDT AM CDT Narrative [facility] - 12/08/2016 1:54 PM C DT Performed by [facility], [address] [place] [address] bhavana [place], [place] [address] Alisha Kimball MD LAB_1 Performing Organization Address City/[facility] Phon e Number [facility] [phone] SELAM Screen (12/07/2016 9:21 AM CDT) athologist Signature SELAM Screen Negative NEG [facility] Specimen Anatomical Collection Method Collection Time Receive d Time (Source) Location / / Volume Laterality 12/07/2016 9:21 AM 7 9:22 CDT AM CDT Narrative [facility] - 12/08/2016 4:48 PM C DT Performed at [facility], [address] [place] [address] ??[address] Alisha Kimball MD LAB_1 Performing Organization Address City/[facility] Phon e Number [facility] [phone] ESR (12/07/2016 9:21 AM CDT) athologist Signature ESR 6 0 - 20 [facility] mm/hr Specimen Anatomical Collection Method Collection Time Receive d Time (Source) Location / / Volume Laterality 12/07/2016 9:21 AM 7 9:22 CDT AM CDT Narrative [facility] - 12/07/2016 2:59 PM C DT Performed at [facility], [address] [place] [address] ??[address] Alisha Kimball MD LAB_1 Performing Organization Address [facility] Phon e Number [facility] [phone] HBsAg (Hepatitis B Surface Antigen) (12/07/2016 9:21 AM CDT) [facility] Signature HBsAg Negative (Non NEGNR [facility] Reactive) LABORATORIES Specimen Anatomical Collection Method Collection Time Receive d Time (Source) Location / / Volume Laterality 12/07/2016 9:21 AM 7 9:22 CDT AM CDT Narrative [facility] - 12/07/2016 5:10 PM C DT Performed at [address] ??[address] Alisha Kimball MD LAB_1 Performing Organization Address [facility] Phon e Number [facility] [phone] (ABNORMAL) Hepatitis B Surface Antibody (12/07/2016 9:21 AM CDT) [facility] Signature Hep B Surf AB <2.0 (L) [...] 12/07/2016 5:11 PM C DT Performed at [address] ??[address] Alisha Kimball MD LAB_1 Performing Organization Address [facility] Phon e Number [facility] [phone] (ABNORMAL) Liver Panel(Hepatic Function Panel) (12/07/2016 9:21 AM CDT) [facility] Signature Alkaline 85 40 - 150 [facility] [...] 12/07/2016 1:39 PM C DT Performed at [address] ??[address] Alisha Kimball MD LAB_1 Performing Organization Address [facility] Phon e Number [facility] [phone] HEP C recommended for patients born between 1779-0712 (12/07/2016 9:21 AM CDT) [facility] gist Method Time Signature Anti-HCV Negative (Non NEGNR [facility] Reactive) LABORATORIES Comment: Antibodies to HCV not detected. Does not exclude the possibility of exposure to HCV. Specimen Anatomical Collection Method Collection Time Receive d Time (Source) Location / / Volume [facility] 12/07/2016 9:21 AM 7 9:22 CDT AM CDT Narrative [facility] - 12/07/2016 2:01 PM C DT Performed at [address] ??[address] Alisha Kimball MD LAB_1 Performing Organization Address City/[facility] Phon e Number [facility] [phone] documented in this encounter Visit Diagnoses Diagnosis [...] (LDH) documented in this encounter Care Teams Environmental Field Professional Relationship Specialty Start Date End Date Alisha Kimball MD PCP - General 07/08/05 [address] [place] [address] documented as of this encounter
--- OUTSIDE RECORDS SUMMARY | 2022-06-10 14:24 | XMS_ITS | Encounter Summary ---
:1955 Author Organization [facility] Address [address] [place] [address] Care Team Providers Name Role Phone Alisha Kimball MD Primary Care Provider Reason for Visit Procedure/Equipment (Routine) - Closed Specialty Diagnoses / Procedures Referred By Contact Refer red To Contact Diagnoses Encounter for screening for malignant neoplasm of colon Alisha Kimball MD [address] [place] [address] Referral ID Status Reason Start Date Expiration Date Visits Requ ested Visits Authorized [id number] Closed 12/09/2015 03/09/2017 1 1 Encounter Details Date Type Department Care Team Description 04/01/2016 Procedure Visit [facility] Jean Claude Chauhan, [facility] safia MERLOS [address] [place] [address] [place], [place] [phone] [address] Social History Tobacco Use Types Packs/Day [...] Where can you learn more? Go to [employer] and enter C571 in the search box. Current as of: May 24, 2015 Content Version: 108 ?? [id number] [employer]. Learning About Diverticulosis and Diverticulitis What are [...] Where can you learn more? Go to [employer] and enter E426 in the search box. Current as of: May 24, 2015 Content Version: 108 ?? [phone] [employer], [employer]. documented in this encounter Progress Notes Jean [...] . documented in this encounter Results COLONOSCOPY [[id number]] (04/01/2016 8:03 AM CDT) Specimen (Source) Anatomical [...] retrieved . Recommendation: ?- Return to refe teresa physician ? - Await P ath results. I will contact with letter in ? 1-2 weeks . ? - High fi lakshmi diet. Procedure Code(s): ?? --- Professional - -- ? 93948, PT , Colonoscopy, flexible; with biopsy, single ? or multip le Diagnosis Code(s): ?? --- Professional - -- ? Z12.11, E ncounter for screening for malignant ? neoplasm of colon ? K62.1, Re ctal polyp ? K57.30, D iverticulosis of large intestine without ? perforati on or abscess without bleeding CPT copyright 2015 [employer]. All rights reserved. The codes documented in this report are preliminary and upon hourly manager review may be revised to meet current [...] retrieved. Recommendation: - Return to refering kian michele - Await Path results. I will contact [facility] letter in 1-2 weeks. - High fiber diet. Procedure Code(s): --- Professional --- 05525, PT, Colonoscopy, flexible; with biopsy, single or multiple Diagnosis Code(s): --- Professional --- Z12.11, Encounter for screening for mal ignant neoplasm of colon K62.1, Rectal polyp K57.30, Diverticulosis of large intesti ne without perforation or abscess without bleeding CPT copyright 2015 [employer]. All rights reserved. The codes documented in this report are preliminary and upon hourly manager review may be revised to meet current complianc e requirements. Attending Participation: MD Jean Claude Stanton, 04/01/2016 8:30:39 AM Number of Addenda: 0 Note Initiated On: 04/01/2016 8:03 AM Jean Claude Chauhan MD DIGESTIVE CARE Performing Organization Address City/State/ZIP Code Phon e Number GI (PROVATION) GI (PROVATION) [place], [place] Surgical Path - Colonoscopy (04/01/2016 7:00 AM CDT) [facility] gist Method Time Signature Histology (NOTE) [facility] Final [facility] Patient Name: LOC VELASCO Taken: 04/01/2016 Received: 04/01/2016 Reported: 04/02/2016 Physician(s): [...] is performed. ?? kds/04/02/2016 Denice Becerril MD [facility] Department of Pathology [address] [place] [address] ??[address] Specimen Anatomical Collection Method Collection Time Receive d Time (Source) Location / / Volume Laterality COLON STRUCTURE / 04/01/2016 7:00 AM 03/06 Unknown CDT 11:14 AM CDT Jean Claude Chauhan MD LAB_1 Performing Organization Address City/State/ZIP Code Phon e Number [id number] [phone] documented in this encounter Visit Diagnoses Diagnosis [...] protocol. documented in this encounter Care Teams Winterizer Relationship Specialty Start Date End Date Alisha Kimball MD PCP - General 07/08/05 [address] [place] [address] documented as of this encounter
--- OUTSIDE RECORDS SUMMARY | 2022-06-10 14:24 | XMS_ITS | Encounter Summary ---
:1955 Author Organization [facility] Address [address] [place] [address] Care Team Providers Name Role Phone Alisha Kimball MD Primary Care Provider Reason for Visit Reason Comments FALL ARM PAIN SHOULDER PAIN Encounter Details Date Type Department Care Team Description 02/16/2016 Nurse Triage Careline Unknown, FALL; ARM PAIN; [address] Physician SHOULDER PAIN [place], [place] [address] [phone] [place], [place] [address] Social History Tobacco Use Types Packs/Day Years Used Date Smoking Tobacco: Never Smokeless Tobacco: Never Alcohol Use Standard Drinks/Week Comments No 0 (1 standard drink = 0.6 oz pure alcoho l) Sex Assigned at Date Recorded Not on file documented as of this encounter Nursing Notes Sonali Houston RN - 02/16/2016 4:32 PM CDT Protocol: SHOULDER [id number] Affirmative: Looks like a dislocated joint Disposition of Go To ED Now suggested. 1. MECHANISM: How did the injury happen? Response: fell on sidewalk Feels weak 2. ONSET: When did the injury happen? (Minutes or hours ago) Response: 1200 3. APPEARANCE of INJURY: What does the [...] clinic is the patient normally seen at? [facility]. Situation: Medical:Fell while walking today and injured her arm and shoulder. Does she need to be seen? Plan:A nurse will return your call. If your symptoms change for the worse, please call us back [phone].. documented in this encounter Plan of Treatment Not on filedocumented as of this encounter Visit Diagnoses Not on filedocumented in this encounter Care Teams Supervisor Hardboard Relationship Specialty Start Date End Date Alisha Kimball MD PCP - General 07/08/05 [address] [place] [address] documented as of this encounter
--- OUTSIDE RECORDS SUMMARY | 2022-06-10 14:24 | XMS_ITS | Encounter Summary ---
:1955 Author Organization [facility] Address [address] [place] [address] Care Team Providers Name Role Phone Carroll Avalos MD Primary Care Provider Reason for Visit Reason Comments Refill Metformin Encounter Details Date Type Department Care Team Description 11/16/2016 Refill [facility] Carroll Avalos MD Refill (Metformin) [address] [facility]. [address] [place] [address] [place], [place] [phone] (Wo rk) Social History Tobacco Use Types [...] Lyn Payne 11/18/2016, 8:13 AM Interface, Out Ayasdi Query - 11/16/2016 6:02 PM CDT metFORMIN [...] HBA1C: 6.6 % on 03/06/2016 Powered by Med ePad, Reference: [id number], 11/16/2016 6:02:46 PM CDT, Pool: ARNOLD AMEZQUITA RN ([id number]) Interface, Out Ayasdi Query - 11/16/2016 6:02 PM CDT The [...] filedocumented in this encounter Care Teams Dye House Hand Relationship Specialty Start Date End Date Carroll Avalos MD PCP - General 07/08/05 [address] [place] [address] documented as of this encounter
--- OUTSIDE RECORDS SUMMARY | 2022-06-10 14:24 | XMS_ITS | Encounter Summary ---
:1955 Author [facility] Address [address], [place] [address] Care Team Providers Name Role Phone Alisha Kimball MD Primary Care Provider Reason for Visit Reason Comments PHARMACIST COUNSELING diabetes Encounter Details Date Type Department Care Team Description 02/10/2016 Pharmacy [facility], [facility] on PHARMACIST COUNSELING Pharmacy [address] [facility] (diabetes) [address] [place], [place] [address] [phone] (Wo rk) Social History Tobacco Use Types [...] ALISON BECKER 02/12/2016, 3:59 PM Brenton Pickard [facility] - 02/10/2016 10:42 AM CDT Topic / Disease State: Diabetes: Clinic Pharmacy Diabetes Encounter Notes Loc Velasco was at [facility] to speak with the [...] twocopies of the Rx Diabetes Report Card ([id number]). One copy will be provided to the patient and the second copy will be used to complete Epic documentation after patient consultation occurs. Patient at Goal? Yes. Please document using .rphdoc after speaking with the patient. documented in this encounter Plan of Treatment Not on filedocumented as of this encounter Visit Diagnoses Not on filedocumented in this encounter Care Teams Counter Person Relationship Specialty Start Date End Date Alisha Kimball MD PCP - General 07/08/05 [address] [place] [address] documented as of this encounter
--- OUTSIDE RECORDS SUMMARY | 2022-06-10 14:24 | XMS_ITS | Encounter Summary ---
:1955 Author Organization [facility] Address [address] [place] [address] Care Team Providers Name Role Phone Alisha Kimball MD Primary Care Provider Reason for Visit Reason Comments Lab Orders Needed Encounter Details Date Type Department Care Team Description 11/18/2016 Telephone [facility] maxiAlisha Weiss MD Lab Orders Needed [address] [place] [address] [place], [place] [phone] (Wo rk) Social History Tobacco Use Types [...] W[place] FP HP [place] 01/11/2017 9:00 AM [facility] I WY MIKEY HP [place] 01/18/2017 11:00 AM Eric Keller OD WD OPT [id number] 04/22/2017 8:00 AM Tesha Maxwell, PharmD SP Rx HPSP PCP: Alisha Kimball MD If Alisha Kimball MD is out of the clinic, is it okay to wait until they return? No Bertha Han, RN [Hospice Care Consultant: Please help schedule an upcoming appointment for a lab visit.] Please route to: Care Team Pool Floresita Fuchs - 11/18/2016 10:29 AM CDT What referral/order is being requested: LABS Why is the referral/order needed: (What is the medical condition for which the referral is needed?):FOR RHM & A1C Is it okay to leave detailed message on your voicemail? YES [Hospice Care Consultant/Appt Center: If this call is after 3 p.m., communicate to patient: If we are not able to get back to you by the end of the day and your symptoms worsen please contact the Careline at [phone] OR at .] [Hospice Care Consultant: Please inform patient that a referral does [...] 12/01/2016 1:13 PM C DT Performed at [facility], [address] [place] [address] Alisha Kimball MD LAB_1 Performing Organization Address City/[facility]/ZIP Code Phon e Number [facility] [phone] (ABNORMAL) ALT (SGPT) (12/01/2016 7:14 AM CDT) P athologist Signature ALT (SGPT) 87 (H) 0 - 55 U/L [facility] Specimen Anatomical Collection Method Collection Time Receive d Time (Source) Location / / Volume Laterality 12/01/2016 7:14 AM 7 7:16 CDT AM CDT Narrative [facility] - 12/01/2016 1:01 PM C DT Performed at [address] ??[address] Alisha Kimball MD LAB_1 Performing Organization Address City/[facility] Phon e Number [facility] [phone] Potassium (12/01/2016 7:14 AM CDT) P athologist Signature Potassium 3.9 3.5 - 5.1 [facility] mmol/L Specimen Anatomical Collection Method Collection Time Receive d Time (Source) Location / / Volume Laterality 12/01/2016 7:14 AM 7 7:16 CDT AM CDT Narrative [facility] - 12/01/2016 1:01 PM C DT Performed at [facility], [address] [place] [address] ??[address] Alisha Kimball MD LAB_1 Performing Organization Address City/[facility] Code Phon e Number [facility] [phone] Creatinine / GFR (12/01/2016 7:14 AM CDT) [...] 12/01/2016 1:01 PM C DT Performed at [address] ??[address] Alisha Kimball MD LAB_1 Performing Organization [address] [facility] Phon e Number [facility] [phone] Lipid Panel and Direct LDL(If Needed) (12/01/2016 7:14 AM CDT) [facility] gist Method Time Signature Hours Fasting 12 [...] 12/01/2016 1:01 PM C DT Performed at [address] ??[address] Alisha Kimball MD LAB_1 Performing Organization Address [facility] Phon e Number [facility] [phone] (ABNORMAL) Hgb A1c (12/01/2016 7:14 AM CDT) [...] C DT Performed at [facility], [address] ??[address] Alisha Kimball MD LAB_1 Performing Organization Address City/State/[facility] Code Phon e Number [facility] [phone] documented in this encounter Visit Diagnoses Diagnosis [...] disorder documented in this encounter Care Teams Associate Veterinarian Relationship Specialty Start Date End Date Alisha Kimball MD PCP - General 07/08/05 [address] [place] [address] documented as of this encounter
--- OUTSIDE RECORDS SUMMARY | 2022-06-10 14:24 | XMS_ITS | Encounter Summary ---
:1955 Author Organization [employer] Address [address] [place] [address] Care Team Providers Name Role Phone Alisha Kimball MD Primary Care Provider Reason for Visit Reason Comments Dental Conversion Legacy EDR to [place] convers ion Encounter Details Date Type Department Care Team Description 12/10/2016 Dental Conversion [facility] Conchis S, DMD [address] [place] [address] [place] [address] [phone] Social History Tobacco Use Types Packs/Day Years [...] . Uses Fluoridated toothpaste. Primary water source: [facility], Unfiltered. Additional Notes: b 3xdn [...] Dr Alisha Kimball. The patient's medical clinic: [facility]. Current Medication 1: Vitamin Multi. Current [...] Current Medication 10 : Metformin. Current Medication Nuwpxd94 : 500mg. Current Medication Blyhceays40 : Daily. Current Medication 11 : Generic Lipitor. Current Medication Udgirzlov21 : Daily. Health History Note Interface, In [...] . Uses Fluoridated toothpaste. Primary water source: [facility], Unfiltered. Additional Notes: b 3xdn [...] Dr Alisha Kimball. The patient's medical clinic: [facility]. Current Medication 1: Vitamin Multi. Current [...] . Uses Fluoridated toothpaste. Primary water source: [facility], Unfiltered. Additional Notes: b 3xdn [...] Dr Alisha Kimball. The patient's medical clinic: [facility]. Current Medication 1: Vitamin Multi. Current Medication 2: Vitamin D. Current Medication 3: Fiber Pill. Current Medication 4: Baby Aspirin. Current Medication 5 : Fish Oil Occasionally. Current Medication 6 : Chromium. 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 Her name is Melia Velasco (#[id number]). Our concern is that she continues to [...] [facility] Con[facility] - 08/19/2011 12:00 AM DISTRIBUTION DISTRICT SUPERVISOR 08/19/2011: Address Updated: Phone number updated. sg RIBUTION DISTRICT SUPERVISOR documented in this encounter Plan of Treatment Not on filedocumented as of this encounter Visit Diagnoses Not on filedocumented in this encounter Care Teams Asphalt Screed Operator Relationship Specialty Start Date End Date Alisha Kimball MD PCP - General 07/08/05 [address] [place] [address] documented as of this encounter
--- OUTSIDE RECORDS SUMMARY | 2022-06-10 14:24 | XMS_ITS | Encounter Summary ---
:1955 Author Organization [facility] Address [address] [place] [address] Care Team Providers Name Role Phone Alisha Kimball MD Primary Care Provider Encounter Details Date Type Department Care Team Description 11/16/2016 Refill Order [facility] Alisha Kimball MD [address] [facility]. [address] [place] [address] [place], [place] [id number] (Wo rk) Social History Tobacco Use Types [...] 1:01 PM C DT Performed at [facility], [address] [place] [address] ??[id number] Alisha Kimball MD LAB_1 Performing Organization Address City/State/ZIP Code Phon e Number [facility] [phone] documented in this encounter Visit Diagnoses Diagnosis [...] disorder documented in this encounter Care Teams Retail Asset Protection Specialist Relationship Specialty Start Date End Date Alisha Kimball MD PCP - General 07/08/05 [address] [place] [address] documented as of this encounter
--- OUTSIDE RECORDS SUMMARY | 2022-06-10 14:24 | XMS_ITS | Encounter Summary ---
:1955 Author Organization [employer] Address [address] [place] [address] Care Team Providers Name Role Phone Alisha Kimball MD Primary Care Provider Encounter Details Date Type Department Care Team Description 12/01/2016 Lab Visit [facility] Encounter for long-term (cur rent) use of medications; 205 [facility] Diabetes mellitus, type 2 (H RC); [place] [address] Hypercholesterolemia; [phone] Essential hyper tension; Screening for t hyroid [...] 12/01/2016 1:13 PM C DT Performed at [address] ??[id number] Alisha Kimball MD LAB_1 Performing Organization Address [facility] Phon e Number [facility] [phone] (ABNORMAL) ALT (SGPT) (12/01/2016 7:14 AM CDT) athologist Signature ALT (SGPT) 87 (H) 0 - 55 U/L [facility] Specimen Anatomical Collection Method Collection Time Receive d Time (Source) Location / / Volume Laterality 12/01/2016 7:14 AM 7 7:16 CDT AM CDT Narrative [facility] - 12/01/2016 1:01 PM C DT Performed at [address] ??[id number] Alisha Kimball MD LAB_1 Performing Organization Address City/State/ZIP Code Phon e Number [facility] [phone] Potassium (12/01/2016 7:14 AM CDT) P athologist Signature Potassium 3.9 3.5 - 5.1 [facility] mmol/L Specimen Anatomical Collection Method Collection Time Receive d Time (Source) Location / / Volume Laterality 12/01/2016 7:14 AM 7 7:16 CDT AM CDT Narrative [facility] - 12/01/2016 1:01 PM C DT Performed at [facility], [address] [place] [address] ??[id number] Alisha Kimball MD LAB_1 Performing Organization Address City/[facility] Phon e Number [facility] [phone] Creatinine / GFR (12/01/2016 7:14 AM CDT) [facility] Time Signature Creatinine 0.77 0.55 - [...] Performed at [facility], [address] [place] [address] ??[address] Alisha Kimball MD LAB_1 Performing Organization Address City/[facility] Phon e Number [facility] [phone] Lipid Panel and Direct LDL(If Needed) (12/01/2016 [...] Performed at [facility], [address] [place] [address] ??[address] Alisha Kimball MD LAB_1 Performing Organization Address City/[facility] Phon e Number [facility] [phone] (ABNORMAL) Hgb A1c (12/01/2016 7:14 AM CDT) [...] Performed at [facility], [address] [place] [address] ??[id number] Alisha Kimball MD LAB_1 Performing Organization Address [facility] Phon e Number [facility] [phone] Sodium (12/01/2016 7:14 AM CDT) athologist Signature Sodium 140 136 - 145 [facility] mmol/L Specimen Anatomical Collection Method Collection Time Receive d Time (Source) Location / / Volume Laterality 12/01/2016 7:14 AM 7 7:16 CDT AM CDT Narrative [facility] - 12/01/2016 1:01 PM C DT Performed at [facility], [address] [place] [address] ??[id number] Alisha Kimball MD LAB_1 Performing Organization Address City/State/ZIP Code Phon e Number [facility] [phone] documented in this encounter Visit Diagnoses Diagnosis Encounter for long-term (current) use of medications Encounter for long-term (current) use of other medications Diabetes mellitus, type 2 (HRC) Type II or unspecified type diabetes dinora litus without mention of complication, not stated as uncontrolled Hypercholesterolemia Pure hypercholesterolemia Essential hypertension (HRC) Unspecified essential hypertension Screening for thyroid disorder documented in this encounter Care Teams Aircraft Powerplant Repairer Relationship Specialty Start Date End Date Alisha Kimball MD PCP - General 07/08/05 [address] [place] [address] documented as of this encounter
--- OUTSIDE RECORDS SUMMARY | 2022-06-10 14:24 | XMS_ITS | Encounter Summary ---
:1955 Author Organization [facility] Address [address] [place] [address] Care Team Providers Name Role Phone Alisha Kimball MD Primary Care Provider Reason for Referral Procedure/Equipment (Routine) - Incomplete Specialty Diagnoses / Procedures Referred By Contact Refer red To Contact Diagnoses Elevated liver enzymes Alisha Kimball MD Procedures [facility] Complete [address] [place] [address] Referral ID Status Reason Start Date Expiration Date Visits V isits Requested Authorized [id number] Incomplete 12/09/2016 03/10/2018 1 1 Reason for Visit Reason Comments LAB RESULTS Encounter Details Date Type Department Care Team Description 12/08/2016 Telephone [facility] Alisha Kimball MD LAB RESULTS 84[address] [facility]. [address] [place] [address] [place] [address] (Wo rk) Social History Tobacco [...] Patient returning call. Please call back at [phone]. Ok to leave a detailed message. Treasure [...] mass lesion. 2. Small left renal cyst. Alisah Kimball MD [facility] documented in this encounter Visit Diagnoses Diagnosis Elevated liver enzymes - Primary Nonspecific elevation of levels of trans aminase or lactic acid dehydrogenase (LDH) Elevated liver enzymes Nonspecific elevation of levels of trans aminase or lactic acid dehydrogenase (LDH) documented in this encounter Care Teams Drop Board Man Relationship Specialty Start Date End Date Alisha Kimball MD PCP - General 07/08/05 [address] [place] [address] documented as of this encounter
--- OUTSIDE RECORDS SUMMARY | 2022-06-10 14:24 | XMS_ITS | Encounter Summary ---
:1955 Author Organization [employer] Address [address] [place] [address] Care Team Providers Name Role Phone Alisha Kimball MD Primary Care Provider Reason for Visit Reason Comments Refill atorvastatin (LIPITOR) 10 MG tablet [Pharmacy Med Name: ATORVASTATIN 10MG TABS] Encounter Details Date Type Department Care Team Description 02/09/2016 Refill [facility] Alisha Kimball MD Refill (atorvastatin Medicine [address] (LIPITOR) 10 MG tablet [address] [place] [address] [Pharmacy Med Name: [place] [address] ATORVASTATIN 10MG TABS]) [phone] Social History Tobacco Use Types Packs/Day Years [...] visit 12/09/2015. Alisha Kimball MD Interface, Out [employer] [employer] Prov Query - 02/09/2016 6:45 AM CDT [...] LDL: 72 mg/dL on 11/30/2015 Powered by [employer], Reference: [id number], 02/09/2016 6:45:41 AM CDT, Pool: ARNOLD AMEZQUITA RN ([id number]) documented in this encounter Plan of Treatment Not on filedocumented as of this encounter Visit Diagnoses Not on filedocumented in this encounter Care Teams Cleaning And Washing Equipment Operator Relationship Specialty Start Date End Date Alisha Kimball MD PCP - General 07/08/05 [address] [facility] [place] [address] (work) documented as of this encounter
--- OUTSIDE RECORDS SUMMARY | 2022-06-10 14:24 | XMS_ITS | Encounter Summary ---
:1955 Author Organization [employer] Address [address] [place] [address] Care Team Providers Name Role Phone Alisha Kimball MD Primary Care Provider Reason for Visit Reason Comments HTN MANAGEMENT AND EDUCATION Encounter Details Date Type Department Care Team Description 05/07/2016 Office Visit [facility] Tesha Maxwell, Essential hypertension (Prim levy Dx); 205 [facility] PharmD Diabetes mellitus, type 2 (HRC) [place] [address] 8450 [facility] [phone] [place], [place] [address] Social History Tobacco Use [...] Thanks, Tesha Maxwell PharmD [facility] on Wednesday & Wednesday [facility] [...] by mouth daily. New RX sent to [facility]. 2) Patient to have potassium and kidney [...] scheduled for June 04 at 8:00am. Updated [employer] med list and reviewed medications including indications with patient. Total time spent with patient 15 minutes. Tesha Maxwell PharmD Clinical Pharmacist Medication Therapy Management Program documented in this encounter Plan of Treatment Not on filedocumented as of this encounter Results Creatinine / GFR (06/15/2016 4:28 PM AIRCRAFT BODY REPAIRER) Analysis Performed At Patho logist Time Signature Creatinine 0.92 0.55 - [facility] 1.02 mg/dl [facility] GFR, Estimated >60 >60 [facility] ml/min/1.7 LAB[facility]ATORIES 3m2 GFR, Est., If >60 >60 [facility] ml/min/1.7 LABORATORIES 3m2 Specimen Anatomical Collection Method Collection Time Receive d Time (Source) Location / / Volume Laterality 06/15/2016 4:28 PM 6 4:29 AIRCRAFT BODY REPAIRER PM AIRCRAFT BODY REPAIRER Narrative [facility] - 06/15/2016 6:[address] Performed at [facility], [address] [place] [address] ??[id number] Alisha Kimball MD LAB_1 Performing Organization Address City/[facility] Phon e Number [facility] [phone] Potassium (06/15/2016 4:28 PM AIRCRAFT BODY REPAIRER) P athologist Signature Potassium 4.2 3.5 - 5.1 [facility] mmol/L Specimen Anatomical Collection Method Collection Time Receive d Time (Source) Location / / Volume Laterality 06/15/2016 4:28 PM 6 4:29 AIRCRAFT BODY REPAIRER PM AIRCRAFT BODY REPAIRER Narrative [facility] - 06/15/2016 6:[address] Performed at [facility], [address] [place] [address] ??[phone] Alisha Kimball MD LAB_1 Performing Organization Address City/[facility] Code Phon e Number [facility] [phone] documented in this encounter Visit Diagnoses Diagnosis Essential hypertension (HRC) - Primary Unspecified essential hypertension Diabetes mellitus, type 2 (HRC) Type II or unspecified type diabetes dinora litus without mention of complication, not stated as uncontrolled Essential hypertension (HRC) Unspecified essential hypertension documented in this encounter Care Teams Carpet Loom Fixer Relationship Specialty Start Date End Date Alisha Kimball MD PCP - General 07/08/05 [address] [place] [address] documented as of this encounter
--- OUTSIDE RECORDS SUMMARY | 2022-06-10 14:24 | XMS_ITS | Encounter Summary ---
:1955 Author Organization [employer] Address [address] [place] [address] Care Team Providers Name Role Phone Alisha Kimball MD Primary Care Provider Reason for Visit Reason Comments MEDICATION THERAPY MANAGEMENT Encounter Details Date Type Department Care Team Description 03/12/2016 Office Visit [facility] Tesha Maxwell, Diabetes mellitus, type 2 (H RC) (Primary Dx); 205 [facility] PharmD Essential hypertension; [place], [place] [address] Hypercholeste rolemia (HRC) [address] [facility] [phone] [place] [address] Social History Tobacco Use Types [...] you have questions. Thanks, Tesha Maxwell PharmD [facility] on Wednesday & Wednesday [facility] on & Wednesday documented in [...] scheduled for April 09 at 8:00am. Updated [facility] list and reviewed medications including indications with [...] hypercholesterolemia documented in this encounter Care Teams Cardio Clinician Relationship Specialty Start Date End Date Alisha Kimball MD PCP - General 07/08/05 [address] [place] [address] documented as of this encounter
--- OUTSIDE RECORDS SUMMARY | 2022-06-10 14:24 | XMS_ITS | Encounter Summary ---
:1955 Author Organization [employer] Address [address] [place] [address] Care Team Providers Name Role Phone Alisha Kimball MD Primary Care Provider Reason for Visit Reason Comments HTN MANAGEMENT AND EDUCATION Encounter Details Date Type Department Care Team Description 06/04/2016 Office Visit [facility] Hans, Tesha, Essential hypertension (Prim levy Dx); 205 [facility] PharmD Diabetes mellitus, type 2 (HRC); [place], [place] [address] Hypercholeste rolemia (HRC) [address] [facility] [phone] [place] [address] Social History Tobacco Use Types Packs/Day Years Used Date Smoking Tobacco: Never Smokeless Tobacco: Never Alcohol Use Standard Drinks/Week Comments No 0 (1 standard drink = 0.6 oz pure alcoho l) Sex Assigned at Date Recorded Not on file documented as of this encounter Last Filed Vital Signs Vital Sign Reading Time Taken Comments Blood Pressure 122/95 06/04/2016 7:49 AM MULTIPLE TUBE WINDING MACHINE OPERATOR Pulse 86 06/04/2016 7:49 AM MULTIPLE TUBE WINDING MACHINE OPERATOR Temperature - - Respiratory Rate [...] if you have questions. Thanks, Gamal Jasmine IPLE TUBE WINDING MACHINE OPERATOR documented in this encounter Progress Notes Kenroy [...] for June 18 at 8:00 am. Updated [employer] med list and reviewed medications including indications with patient. Total time spent with patient 30 minutes. Monica Jasmine, AnneD IV Student Appointment conducted by student. Case discussed with student and I agree with student's plan/note. Tesha Maxwell PharmD 06/04/2016, 8:46 AM IPLE TUBE WINDING MACHINE OPERATOR documented in this encounter Plan of Treatment Not on filedocumented as of this encounter Visit Diagnoses Diagnosis Essential hypertension (HRC) - Primary Unspecified essential hypertension Diabetes mellitus, type 2 (HRC) Type II or unspecified type diabetes dinora litus without mention of complication, not stated as uncontrolled Hypercholesterolemia Pure hypercholesterolemia documented in this encounter Care Teams Display Carver Relationship Specialty Start Date End Date Alisha Kimball MD PCP - General 07/08/05 [address] [place] [address] documented as of this encounter
--- OUTSIDE RECORDS SUMMARY | 2022-06-10 14:24 | XMS_ITS | Encounter Summary ---
:1955 Author Organization [facility] Address [address] [address] Care Team Providers Name Role Phone Alisha Kimball MD Primary Care Provider Reason for Visit Reason Comments MEDICATION THERAPY MANAGEMENT Encounter Details Date Type Department Care Team Description 06/18/2016 Office Visit [facility] Tesha Maxwell, Essential hypertension 205 [facility] PharmD (Primary Dx) [place] [address] [facility] [phone] [place], [place] [address] Social History Tobacco Use Types Packs/Day Years Used Date Smoking Tobacco: Never Smokeless Tobacco: Never Alcohol Use Standard Drinks/Week Comments No 0 (1 standard drink = 0.6 oz pure alcoho l) Sex Assigned at Date Recorded Not on file documented as of this encounter Last Filed Vital Signs Vital Sign Reading Time Taken Comments Blood Pressure 123/86 06/18/2016 7:39 AM ENTERTAINMENT USHER Pulse 81 06/18/2016 7:39 AM ENTERTAINMENT USHER Temperature - - Respiratory Rate - - Oxygen Saturation - - Inhaled Oxygen Concentration - - Weight - - Height - - Body Mass Index - - documented in this encounter Patient Instructions Patient InstructionsPeltTesha smith PharmD - 06/18/2016 7:34 AM CST 1) Your blood pressure is in goal range today. Continue on amlodipine 5mg daily, [id number] daily and losartan 50mg daily. 2) Your follow-up visit is scheduled for , September 24 at 8:00am. Please call me or e-mail if you have questions. Thanks, Tesha Maxwell PharmD [facility] on Wednesday & Wednesday [facility] on & Wednesday RTAINMENT USHER documented in this encounter Progress Notes Tesha [...] scheduled for September 24 at 8:00am. Updated [employer] list and reviewed medications including indications with patient. Total time spent with patient 15 minutes. Tesha Maxwell PharmD Clinical Pharmacist Medication Therapy Management Program RTAINMENT USHER documented in this encounter Plan of Treatment Not on filedocumented as of this encounter Visit Diagnoses Diagnosis Essential hypertension (HRC) - Primary Unspecified essential hypertension documented in this encounter Care Teams Spa Receptionist Relationship Specialty Start Date End Date Alisha Kimball MD PCP - General 07/08/[address] [place] [address] documented as of this encounter
--- OUTSIDE RECORDS SUMMARY | 2022-06-10 14:24 | XMS_ITS | Encounter Summary ---
:1955 Author Organization [employer] Address [address] [address] Care Team Providers Name Role Phone Alisha Kimball MD Primary Care Provider Reason for Visit Reason Comments HTN MANAGEMENT AND EDUCATION Encounter Details Date Type Department Care Team Description 04/09/2016 Office Visit [facility] Tesha Maxwell, Essential hypertension 205 [facility] PharmD (Primary Dx) [place] [address] [address] [facility] [phone] [place], [place] [address] Social History Tobacco Use [...] , November 3rd at 8:00am at the [facility]. Please call me or e-mail if you have questions. Thanks, Tesha Maxwell PharmD [facility] on Wednesday & Wednesday [facility] on & Wednesday documented in this [...] scheduled for May 07 at 8:00am. Updated [employer] list and reviewed medications including indications with [...] 05/04/2016 7:28 PM C DT Performed at [facility], [address] [place] [address] ??[id number] Alisha Kimball MD LAB_1 Performing Organization Address [facility] Phon e Number [facility] [phone] Potassium (05/04/2016 3:49 PM CDT) P athologist Signature Potassium 4.2 3.5 - 5.1 [facility] mmol/L Specimen Anatomical Collection Method Collection Time Receive d Time (Source) Location / / Volume Laterality 05/04/2016 3:49 PM 6 3:50 CDT PM CDT Narrative [facility] - 05/04/2016 7:28 PM C DT Performed at [facility], [address] [place] [address] ??[id number] Alisha Kimball MD LAB_1 Performing Organization Address City/[facility] Phon e Number [facility] [phone] documented in this encounter Visit Diagnoses Diagnosis Essential hypertension (HRC) - Primary Unspecified essential hypertension Essential hypertension (HRC) Unspecified essential hypertension documented in this encounter Care Teams Passenger Brakeman Relationship Specialty Start Date End Date Alisha Kimball MD PCP - General 07/08/05 [address] [place] [address] documented as of this encounter
--- OUTSIDE RECORDS SUMMARY | 2022-06-10 14:24 | XMS_ITS | Encounter Summary ---
:1955 Author Organization [employer] Address [address] [place] [address] Care Team Providers Name Role Phone Alisha [...] Department Care Team Description 01/08/2016 Office Visit [facility] Abraham Rivas, Visit for eye and vision exa m (Primary Dx); [address] OD Presbyopia; [place] [address] Type 2 diabetes mellitus without complic ations ([facility]) [phone] [place], [place] [id number] Social History Tobacco Use Types Packs/Day Years [...] risks, benefits, potential complications andalternatives with your energy and sustainability manager. Fortunately, complications from cataract surgery are relatively [...] last eye exam was on 06/[address] [facility] [address] alfaro Diabetes is Type II (adult) [...] uncontrolled documented in this encounter Care Teams Audit Senior Associate Relationship Specialty Start Date End Date Alisha Kimball MD PCP - General 07/08/05 [address] [place] [address] documented as of this encounter
--- OUTSIDE RECORDS SUMMARY | 2022-06-10 14:24 | XMS_ITS | Encounter Summary ---
:1955 Author Organization [employer] Address [address] [place] [address] Care Team Providers Name Role Phone Alisha Kimball MD Primary Care Provider Encounter Details Date Type Department Care Team Description 05/04/2016 Lab Visit [facility] Essential hypertension [address] [place], [place] [address] Social History Tobacco Use [...] 05/04/2016 7:28 PM C DT Performed at [facility], [address] [place] [address] ??[phone] Alisha Kimball MD LAB_1 Performing Organization Address City/[facility] Phon e Number [facility] [phone] Potassium (05/04/2016 3:49 PM CDT) P athologist Signature Potassium 4.2 3.5 - 5.1 [facility] mmol/L Specimen Anatomical Collection Method Collection Time Receive d Time (Source) Location / / Volume Laterality 05/04/2016 3:49 PM 6 3:50 CDT PM CDT Narrative [facility] - 05/04/2016 7:28 PM C DT Performed at [facility], [address] [place] [address] ??[id number] Alisha Kimball MD LAB_1 Performing Organization Address City/[facility] Phon e Number [facility] [phone] documented in this encounter Visit Diagnoses Diagnosis Essential hypertension (HRC) Unspecified essential hypertension documented in this encounter Care Teams Directional Bore Operator Relationship Specialty Start Date End Date Alisha Kimball MD PCP - General 07/08/05 [address] [place] [address] documented as of this encounter
--- OUTSIDE RECORDS SUMMARY | 2022-06-10 14:24 | XMS_ITS | Encounter Summary ---
:1955 Author Organization [facility] Address [address] [place] [address] Care Team Providers Name Role Phone Alisha Kimball MD Primary Care Provider Reason for Visit Reason Comments HTN MANAGEMENT AND EDUCATION Encounter Details Date Type Department Care Team Description 12/09/2015 Office Visit [facility] Tesha Maxwell, Diabetes mellitus, type 2 (H RC) (Primary Dx); [address] PharmD Essential hypertension; [place] [address] [address] Hypercholesterolemia (HRC) [phone] [place] [address] Social History Tobacco Use Types [...] , March 12 at 8:00am at the [facility]. Please call me or e-mail if you have questions. Thanks, Anne MurrietaD [facility] on Wednesday & Wednesday [facility] on & Wednesday documented in [...] for , March 12 at 8:00am Updated [facility] med list and reviewed medications including indications [...] hypercholesterolemia documented in this encounter Care Teams Pack Out Operator Relationship Specialty Start Date End Date Alisha Kimball MD PCP - General 07/08/05 [address] [place] [address] documented as of this encounter
--- OUTSIDE RECORDS SUMMARY | 2022-06-10 14:24 | XMS_ITS | Encounter Summary ---
:1955 Author Organization [facility] Address [address] [place] [address] Care Team Providers Name Role Phone Alisha [...] on filedocumented in this encounter Care Teams Utility Mechanic Supervisor Relationship Specialty Start Date End Date Alisha Kimball MD PCP - General 07/08/05 [address] [place] [id number] documented as of this encounter
--- OUTSIDE RECORDS SUMMARY | 2022-06-10 14:24 | XMS_ITS | Encounter Summary ---
:1955 Author Organization [facility] Address [address] [place] [address] Care Team Providers Name Role Phone Alisha Kimball MD Primary Care Provider Reason for Referral Procedure/Equipment (Routine) - Incomplete Specialty Diagnoses / Procedures Referred By Contact Refer red To Contact Procedures Alisha Kimball MD MM Mammogram Screening [place] [address] [place] [address] Referral ID Status Reason Start Date Expiration Date Visits V isits Requested Authorized [id number] Incomplete 01/08/2016 04/08/2017 1 1 Reason for Visit Procedure/Equipment (Routine) - Incomplete Specialty Diagnoses / Procedures Referred By Contact Refer red To Contact Procedures Alisha Kimball MD MM Mammogram Screening [place] [address] [place] [address] Referral ID Status Reason Start Date Expiration Date Visits V isits Requested Authorized [id number] Incomplete 01/08/2016 04/08/2017 1 1 Encounter Details Date Type Department Care Team Description 01/08/2016 Imaging [facility] ury Mammography [address] [place] [address] Social History Tobacco Use [...] on filedocumented in this encounter Care Teams Alliances Consultant Relationship Specialty Start Date End Date Alisha Kimball MD PCP - General 07/08/05 [address] [place] [address] documented as of this encounter
--- OUTSIDE RECORDS SUMMARY | 2022-06-10 14:24 | XMS_ITS | Encounter Summary ---
:1955 Author Organization [employer] Address [address], [place] [address] Care Team Providers Name Role Phone Alisha Kimball MD Primary Care Provider Reason for Visit Reason Comments Disease Registry diabetes Encounter Details Date Type Department Care Team Description 05/22/2016 Telephone [facility] Alisha Kimball MD Disease Registry Practice [address] (diabetes) [address] [place] [address] [place], [place] [id number] [phone] Social History Tobacco Use Types Packs/Day Years Used Date Smoking Tobacco: Never Smokeless Tobacco: Never Alcohol Use Standard Drinks/Week Comments No 0 (1 standard drink = 0.6 oz pure alcoho l) Sex Assigned at Date Recorded Not on file documented as of this encounter Nursing Notes Tara Ricketts - 05/29/2016 12:11 PM CST Patient scheduled for 06/04/16 SEAL ASSEMBLER Tara Ricketts - 05/22/2016 2:25 PM CST [facility] to schedule. SEAL ASSEMBLER Francesca Cho CMA - 05/22/2016 2:01 PM [...] BP Check Francesca Cho 05/22/2016, 2:01 PM SEAL ASSEMBLER documented in this encounter Plan of Treatment Not on filedocumented as of this encounter Visit Diagnoses Not on filedocumented in this encounter Care Teams Sludge Mill Operator Relationship Specialty Start Date End Date Alisha Kimball MD PCP - General 07/08/05 [address] [place] [address] documented as of this encounter
--- OUTSIDE RECORDS SUMMARY | 2022-06-10 14:25 | XMS_ITS | Encounter Summary ---
:1955 Author Organization [facility] Address [address] [place] [address] Care Team Providers Name Role Phone Alisha Kimball MD Primary Care Provider Reason for Referral Procedure/Equipment (Routine) - Closed Specialty Diagnoses / Procedures Referred By Contact Refer red To Contact Diagnoses Encounter for screening for malignant neoplasm of colon Alisha Kimball MD [address] [place] [address] Referral ID Status Reason Start Date Expiration Date Visits Requ ested Visits Authorized [id number] Closed 12/09/2015 03/09/2017 1 1 Scheduling Instructions Your provider has recommended an appoint ment for a screening colonoscopy with [facility] . You may call the [facility] at [phone] to schedule your colonoscopy. Screening colonoscopies are performed at [facility] in [place], as well as at [facility]. Reason for Visit Reason Comments ROUTINE HEALTH MAINTENANCE smartset Encounter Details Date Type Department Care Team Description 12/09/2015 Office Visit [facility] Alisha Kimball, [facility] (Primary Dx); Practice MD Screening for HIV (human immunodeficienc y virus); [address] Encounter for screening for malignant neoplasm of colon; [place] [address] [address] Need for hepatitis C screening test; [phone] [place], [place] Diabetes mellit us, type 2 (HRC); [address] Insomnia, unspecified type; [phone] [place] (seborrheic keratosis) (Work) Social History Tobacco [...] Where can you learn more? Go to [employer]/ADMETA and enter Y074 in the search box. Current as of: August 24, 2014 Content Version: 108 ?? [phone] [employer]. Colonoscopy: Before Your Procedure What is a [...] living will and a durable power of contracts attorney for health care. Bring a copy [...] not apply lotions, perfumes, deodorants, or nail micronesian. ?? Take off all jewelry and piercings. [...] Where can you learn more? Go to [employer]ADMETA and enter C315 in the search box. Current as of: May 24, 2015 Content Version: 108 ?? 6946-8265 [employer], [employer]. documented in this encounter Progress Notes Alisha [...] 50 MG tablet 7. Skin tag L91.8 12965 DESTRUC BENIGN LESIONS; UP 14 Patient counseled: [...] AM 6 7:32 CDT AM CDT Narrative [facility] - 03/06/2016 12:43 PM CDT Performed at [facility], [address] [place] [id number] Alisha Kimball MD LAB_1 Performing Organization Address City/State/ZIP Code Phon e Number [facility] [phone] documented in this encounter Visit Diagnoses Diagnosis [...] uncontrolled documented in this encounter Care Teams Composing Room Machinist Apprentice Relationship Specialty Start Date End Date Alisha Kimball MD PCP - General 07/08/05 [address] [place] [address] documented as of this encounter
--- OUTSIDE RECORDS SUMMARY | 2022-06-10 14:25 | XMS_ITS | Encounter Summary ---
:1955 Author Organization [employer] Address [address] [place] [address] Care Team Providers Name Role Phone Alisha Kimball MD Primary Care Provider Reason for Visit Reason Comments Medication Questions Encounter Details Date Type Department Care Team Description 01/02/2015 Telephone [facility] Alisha Kimball MD Medication Questions Medicine [address] [place] [address] [place], [place] [address] [phone] Social History Tobacco Use Types Packs/Day Years [...] new Accucheck Plus lancet device. Patient will excelsior picker when able. Tesha Maxwell PharmD 01/02/2015, [...] on filedocumented in this encounter Care Teams Trench Pipe Layer Helper Relationship Specialty Start Date End Date Alisha Kimball MD PCP - General 07/08/05 [address] [place] [address] documented as of this encounter
--- OUTSIDE RECORDS SUMMARY | 2022-06-10 14:25 | XMS_ITS | Encounter Summary ---
:1955 Author Organization [employer] Address [address] [place] [address] Care Team Providers Name Role Phone Alisha Kimball MD Primary Care Provider Reason for Visit Reason Comments HTN MANAGEMENT AND EDUCATION Encounter Details Date Type Department Care Team Description 10/10/2015 Office Visit [facility] Tesha Maxwell, Essential hypertension (Prim levy Dx); [address] [facility] PharmD Diabetes mellitus, type 2 (HRC) [place] [address] [address] [facility] [phone] [place], [place] [address] Social History Tobacco Use [...] you have questions. Thanks, Tesha Maxwell PharmD [facility] on Wednesday & Wednesday [facility] on & Wednesday documented in this [...] scheduled for December 08 at 11:00am. Updated [employer] med list and reviewed medications including indications [...] uncontrolled documented in this encounter Care Teams Busher Helper Relationship Specialty Start Date End Date Alisha Kimball MD PCP - General 07/08/05 [address] [place] [address] documented as of this encounter
--- OUTSIDE RECORDS SUMMARY | 2022-06-10 14:25 | XMS_ITS | Encounter Summary ---
:1955 Author Organization [employer] Address [address], [place] [address] Care Team Providers Name Role Phone Alisha Kimball MD Primary Care Provider Reason for Visit Reason Comments JERSEY TREVINO MD ear pain Encounter Details Date Type Department Care Team Description 12/27/2014 Office Visit [facility] Treasure Pak (upper respiratory infection) (Primary Dx); Rakesh cMmahon MD Sore throat [address] [address] [phone] Social History Tobacco Use Types Packs/Day Years [...] negative screen?: No (12/27/2014 10:27 AM CDT) [facility] gist Method Time Signature Grp A Rapid Negative NEG [facility] Specimen Anatomical Collection Method Collection Time Receive d Time (Source) Location / / Volume Laterality 12/27/2014 10:27 12/27/2014 AM CDT 10:28 AM CDT Narrative [facility] - 12/27/2014 10:36 AM CDT Performed at [facility], [address] [place] [address] Treasure Pak MD LAB_1 Performing Organization Address City/State/ZIP Code Phon e Number [facility] [phone] documented in this encounter Visit Diagnoses Diagnosis URI (upper respiratory infection) - Prim levy Acute upper respiratory infections of un specified site Sore throat Acute pharyngitis documented in this encounter Care Teams Truck Guard Relationship Specialty Start Date End Date Alisha Kimball MD PCP - General 07/08/05 [address] [place] [address] documented as of this encounter
--- OUTSIDE RECORDS SUMMARY | 2022-06-10 14:25 | XMS_ITS | Encounter Summary ---
:1955 Author Organization [employer] Address [address] [place] [address] Care Team Providers Name Role Phone Alisha Kimball MD Primary Care Provider Encounter Details Date Type Department Care Team Description 07/27/2015 Orders Only [facility] Diabetes mellitus, type 2 [address] [facility]) [place], [place] [address] Social History Tobacco Use [...] AM Diabetes mellitus, Res ults for this SURFACE MOUNT TECHNOLOGY OPERATOR type 2 ([facility]) procedure are i n the results section . documented in this encounter Results (ABNORMAL) HGB A1C (07/27/2015 9:21 AM SURFACE MOUNT TECHNOLOGY OPERATOR) P athologist Signature Hgb A1c 7.2 [...] Volume Laterality 07/27/2015 9:21 AM 6 9:23 SURFACE MOUNT TECHNOLOGY OPERATOR AM SURFACE MOUNT TECHNOLOGY OPERATOR Narrative [facility] - 07/29/2015 11:47 AM SURFACE MOUNT TECHNOLOGY OPERATOR Performed at [facility], [address] [place] [address] ??[id number] Alisha Kimball MD LAB_1 Performing Organization Address City/State/ZIP Code Phon e Number [facility] [phone] documented in this encounter Visit Diagnoses Diagnosis Diabetes mellitus, type 2 (HRC) Type II or unspecified type diabetes dinora litus without mention of complication, not stated as uncontrolled documented in this encounter Care Teams Pediatric Anesthesiologist Relationship Specialty Start Date End Date Alisha Kimball MD PCP - General 07/08/05 [address] [place] [address] documented as of this encounter
--- OUTSIDE RECORDS SUMMARY | 2022-06-10 14:25 | XMS_ITS | Encounter Summary ---
:1955 Author Organization [facility] Address [address] [place] [address] Care Team Providers Name Role Phone Alisha Kimball MD Primary Care Provider Reason for Visit Reason Comments LAB TESTS, NOS Encounter Details Date Type Department Care Team Description 07/25/2015 Telephone [facility] maxi Alisha Kimball MD LAB TESTS, NOS [address] [facility] [place]. [address] [place] [address] [place] [address] [phone] (Wo rk) Social History Tobacco Use Types Packs/Day Years Used Date Smoking Tobacco: Never Smokeless Tobacco: Never Alcohol Use Standard Drinks/Week Comments No 0 (1 standard drink = 0.6 oz pure alcoho l) Sex Assigned at Date Recorded Not on file documented as of this encounter Nursing Notes Francesca Cho CMA - 07/25/2015 8:07 AM CST Lab ordered COLLECTOR SUPERVISOR Yudy Werner - 07/25/2015 8:04 AM CST Patient on Lab Only Visit Schedule, no lab orders found in patient's chart. Please review and enter Future Lab Orders or notify the patient that lab work is not needed. Lab Only Visit scheduled for:07-27-15 After placing Future Orders, please route this Telephone Encounter to the following pool: AV LAB -A1C COLLECTOR SUPERVISOR documented in this encounter Plan of Treatment Not on filedocumented as of this encounter Results (ABNORMAL) HGB A1C (07/27/2015 9:21 AM TOLL COLLECTOR SUPERVISOR) P athologist Signature Hgb A1c 7.2 (H) [...] Volume Laterality 07/27/2015 9:21 AM 6 9:23 TOLL COLLECTOR SUPERVISOR AM TOLL COLLECTOR SUPERVISOR Narrative [facility] - 07/29/2015 11:47 AM TOLL COLLECTOR SUPERVISOR Performed at [facility], [address] [place] [id number] Alisha Kimball MD LAB_1 Performing Organization Address City/State/ZIP Code Phon e Number [facility] [phone] documented in this encounter Visit Diagnoses Diagnosis Diabetes mellitus, type 2 (HRC) - Primar y Type II or unspecified type diabetes dinora litus without mention of complication, not stated as uncontrolled Diabetes mellitus, type 2 (HRC) Type II or unspecified type diabetes dinora litus without mention of complication, not stated as uncontrolled documented in this encounter Care Teams Rail Transportation Tabeler Relationship Specialty Start Date End Date Alisha Kimball MD PCP - General 07/08/05 [address] [place] [address] documented as of this encounter
--- OUTSIDE RECORDS SUMMARY | 2022-06-10 14:25 | XMS_ITS | Encounter Summary ---
:1955 Author Organization [employer] Address [address], [place] [address] Care Team Providers Name Role Phone Alisha Kimball MD Primary Care Provider Reason for Visit Reason Comments MEDICATION THERAPY MANAGEMENT Encounter Details Date Type Department Care Team Description 07/29/2015 Office Visit [facility] Tesha Maxwell, Diabetes mellitus, type 2 (H RC) (Primary Dx); [address] PharmD Essential hypertension; [place] [address] [address] Hypercholesterolemia (HRC) [phone] [place] [address] Social History Tobacco Use Types Packs/Day Years Used Date Smoking Tobacco: Never Smokeless Tobacco: Never Alcohol Use Standard Drinks/Week Comments No 0 (1 standard drink = 0.6 oz pure alcoho l) Sex Assigned at Date Recorded Not on file documented as of this encounter Last Filed Vital Signs Vital Sign Reading Time Taken Comments Blood Pressure 135/91 07/29/2015 8:03 AM SUPERVISOR ASBESTOS TEXTILE Pulse 72 07/29/2015 8:03 AM SUPERVISOR [employer]BESTOS TEXTILE Temperature - - Respiratory Rate - - Oxygen Saturation - - Inhaled Oxygen Concentration - - Weight 84.6 kg (186 lb 9.6 oz) 07/29/2015 7:51 AM SUPERVISOR ASBESTOS TEXTILE Height - - Body Mass Index 32.03 [...] for August 30 at 8:00am at the [facility] Please call me or e-mail if you have questions. Thanks, Tesha Maxwell PharmD [facility] on Wednesday & Wednesday [facility] on & Wednesday RVISOR ASBESTOS TEXTILE documented in this encounter Progress Notes Tesha [...] for Wednesday, August 30 at 8:00am. Updated [employer] med list and reviewed medications including indications with patient. Total time spent with patient 30 minutes. Tesha Maxwell PharmD Clinical Pharmacist Medication Therapy Management Program RVISOR [employer] TEXTILE documented in this encounter Plan of Treatment Not on filedocumented as of this encounter Visit Diagnoses Diagnosis Diabetes mellitus, type 2 (HRC) - Primar y Type II or unspecified type diabetes dinora litus without mention of complication, not stated as uncontrolled Essential hypertension (HRC) Unspecified essential hypertension Hypercholesterolemia Pure hypercholesterolemia documented in this encounter Care Teams Machine Rough Rounder Relationship Specialty Start Date End Date Alisha Kimball MD PCP - General 07/08/05 [address] [place] [address] documented as of this encounter
--- OUTSIDE RECORDS SUMMARY | 2022-06-10 14:25 | XMS_ITS | Encounter Summary ---
:1955 Author Organization [employer] Address [address] [address] Care Team Providers Name Role Phone Alisha Kimball MD Primary Care Provider Reason for Visit Reason Comments Refill Encounter Details Date Type Department Care Team Description 2015 Refill [facility] Alisha Remy MD Refill [address] [facility]. [address] [place] [address] [place], [place] [phone] (Wo rk) Social History Tobacco Use Types [...] DBP: 97.0mm Hg on 12/27/2014 Powered by [employer], Reference: [id number], 2015 9:48:30 PM CDT, Pool: ARNOLD REFILL RN ([id number]) documented in this encounter Plan of Treatment Not on filedocumented as of this encounter Visit Diagnoses Not on filedocumented in this encounter Care Teams Mascara Molder Relationship Specialty Start Date End Date Alisha Kimball MD PCP - General 07/08/05 [address] [place] [address] documented as of this encounter
--- OUTSIDE RECORDS SUMMARY | 2022-06-10 14:25 | XMS_ITS | Encounter Summary ---
:1955 Author Organization [employer] Address [address] [place] [address] Care Team Providers Name Role Phone Alisha Kimball MD Primary Care Provider Reason for Visit Reason Comments HTN MANAGEMENT AND EDUCATION Encounter Details Date Type Department Care Team Description 09/12/2015 Office Visit [facility] Tesha Maxwell, Essential hypertension (Prim levy Dx); [address] [facility] PharmD Diabetes mellitus, type 2 (HRC) [place] [address] [address] [facility] [phone] [place], [place] [address] Social History Tobacco Use Types Packs/Day Years Used Date Smoking Tobacco: Never Smokeless Tobacco: Never Alcohol Use Standard Drinks/Week Comments No 0 (1 standard drink = 0.6 oz pure alcoho l) Sex Assigned at Date Recorded Not on file documented as of this encounter Last Filed Vital Signs Vital Sign Reading Time Taken Comments Blood Pressure 132/94 09/12/2015 7:53 AM SURVEY ASSOCIATE Pulse 75 09/12/2015 7:53 AM SURVEY ASSOCIATE Temperature - - Respiratory Rate - [...] [facility] on Wednesday & Wednesday [facility] on & Wednesday EY ASSOCIATE documented in this encounter Progress Notes Tesha [...] scheduled for October 09 at 8:00am Updated [employer] med list and reviewed medications including indications with patient. Total time spent with patient 30 minutes. Tesha Maxwell PharmD Clinical Pharmacist Medication Therapy Management Program EY ASSOCIATE documented in this encounter Plan of Treatment Not on filedocumented as of this encounter Visit Diagnoses Diagnosis Essential hypertension (HRC) - Primary Unspecified essential hypertension Diabetes mellitus, type 2 (HRC) Type II or unspecified type diabetes dinora litus without mention of complication, not stated as uncontrolled documented in this encounter Care Teams Blind Escort Relationship Specialty Start Date End Date Alisha Kimball MD PCP - General 07/08/05 [address] [place] [address] documented as of this encounter
--- OUTSIDE RECORDS SUMMARY | 2022-06-10 14:25 | XMS_ITS | Encounter Summary ---
:1955 Author Organization [employer] Address [address] [address] Care Team Providers Name Role Phone Alisha Kimball MD Primary Care Provider Reason for Visit Reason Comments PHARMACIST COUNSELING diabetes Encounter Details Date Type Department Care Team Description 05/23/[address] [facility] [place] on PHARMACIST COUNSELING Pharmacy [address] [facility] (diabetes) [address] [place], [place] [address] [phone] (Wo rk) Social History Tobacco Use Types [...] be closed. Brenton Pickard 05/24/2015, 2:54 PM UTER HARDWARE TECHNICIAN Brenton Pickard RPh - 05/23/2015 12:53 PM CST Topic / Disease State: Diabetes: Clinic Pharmacy Diabetes Encounter Notes Loc [facility] [...] twocopies of the Rx Diabetes Report Card (61159). One copy will be provided to the patient and the second copy will be used to complete Epic documentation after patient consultation occurs. Patient at Goal? No. Please document using .rphdoc after speaking with the patient. UTER HARDWARE TECHNICIAN documented in this encounter Plan of Treatment Not on filedocumented as of this encounter Visit Diagnoses Not on filedocumented in this encounter Care Teams Business Process Expert Relationship Specialty Start Date End Date Alisha Kimball MD PCP - General 07/08/05 [address] [place] [address] documented as of this encounter
--- OUTSIDE RECORDS SUMMARY | 2022-06-10 14:25 | XMS_ITS | Encounter Summary ---
:1955 Author Organization [employer] Address [address], [place] [address] Care Team Providers Name Role Phone Alisha Kimball MD Primary Care Provider Reason for Visit Reason Comments Refill Encounter Details Date Type Department Care Team Description 2015 Refill [facility] Alisha Remy MD Refill [address] [facility]. [address] [place] [address] [place], [place] [phone] (Wo rk) Social History Tobacco Use Types [...] - LDL: 87.0mg/dL on 10/27/2014 Powered by [employer], Reference: [id number], 2015 9:48:30 PM CDT, Pool: ARNOLD REFILL RN ([id number]) documented in this encounter Plan of Treatment Not on filedocumented as of this encounter Visit Diagnoses Not on filedocumented in this encounter Care Teams Rodding Machine Tender Relationship Specialty Start Date End Date Alisha Kimball MD PCP - General 07/08/05 [address] [place] [address] documented as of this encounter
--- OUTSIDE RECORDS SUMMARY | 2022-06-10 14:25 | XMS_ITS | Encounter Summary ---
:1955 Author Organization [facility] Address [address] [place] [address] Care Team Providers Name Role Phone Alisha Kimball MD Primary Care Provider Reason for Visit Reason Comments LAB TESTS, NOS Encounter Details Date Type Department Care Team Description 11/20/2015 Telephone [facility] maxi Alisha Kimball MD LAB TESTS, NOS [address] [facility]. [address] [place] [address] [place] [address] [phone] (Wo rk) Social History Tobacco Use Types [...] Results MICROALB/CREAT RATIO (11/30/2015 9:08 AM CDT) [facility] gist Method Time Signature Albumin, 0.8 mg/dl [...] 12/03/2015 2:50 PM C DT Performed at [facility], [address] [place] [address] ??[phone] Alisha Kimball MD LAB_[address] [facility] Phon e Number [facility] [phone] (ABNORMAL) ALT (SGPT) (11/30/2015 9:08 AM CDT) athologist Signature ALT (SGPT) 74 (H) 0 - 69 U/L [facility] Specimen Anatomical Collection Method Collection Time Receive d Time (Source) Location / / Volume Laterality 11/30/2015 9:08 AM 6 9:10 CDT AM CDT Narrative [facility] - 12/03/2015 12:22 PM CDT Performed at [facility], [address] [place] [address] ??[address] Alisha Kimball MD LAB_1 Performing Organization Address City/[facility] Phon e Number [facility] [phone] (ABNORMAL) HGB A1C (11/30/2015 9:08 AM CDT) [...] - 12/03/2015 12:24 PM CDT Performed at [facility], [address] [place] [address] ??[id number] Alisha Kimball MD LAB_[address]forming [address] [facility] Phon e Number [facility] [phone] (ABNORMAL) LIPID PANEL AND DIRECT LDL(IF NEEDED) (11/30/2015 9:08 AM CDT) [facility] gist Method Time Signature Hours Fasting 14.0 [...] - 12/03/2015 12:22 PM CDT Performed at [facility], [address] [place] [address] ??[address] Alisha Kimball MD LAB_[address] [facility] Phon e Number [facility] [phone] SODIUM (11/30/2015 9:08 AM CDT) P athologist Signature Sodium 143 135 - 145 [facility] mmol/L Specimen Anatomical Collection Method Collection Time Receive d Time (Source) Location / / Volume Laterality 11/30/2015 9:08 AM 6 9:10 CDT AM CDT Narrative [facility] - 12/03/2015 12:22 PM CDT Performed at [facility], [address] [place] [address] ??[phone] Alisha Kimball MD LAB_[address] [facility]/ZIP Code Phon e Number [facility] [phone] POTASSIUM (11/30/2015 9:08 AM CDT) P athologist Signature Potassium 4.8 3.5 - 5.3 [facility] mmol/L Specimen Anatomical Collection Method Collection Time Receive d Time (Source) Location / / Volume Laterality 11/30/2015 9:08 AM 6 9:10 CDT AM CDT Narrative [facility] - 12/03/2015 12:22 PM CDT Performed at [facility], [address] [place] [address] ??[address] Alisha Kimball MD LAB_[address] [facility] Code Phon e Number [facility] [phone] CREATININE / GFR (11/30/2015 9:08 AM CDT) [...] - 12/03/2015 12:22 PM CDT Performed at [facility], [address] [place] [address] ??[address] Alisha Kimball MD LAB_[address]forming [address] [facility] Phon e Number [facility] [phone] documented in this encounter Visit Diagnoses Diagnosis [...] uncontrolled documented in this encounter Care Teams Neon Glass Blower Relationship Specialty Start Date End Date Alisha Kimball MD PCP - General 07/08/05 [address] [place] [address] documented as of this encounter
--- OUTSIDE RECORDS SUMMARY | 2022-06-10 14:25 | XMS_ITS | Encounter Summary ---
:1955 Author Organization [facility] Address [address] [address] Care Team Providers Name Role Phone Alisha Kimball MD Primary Care Provider Reason for Visit Reason Onset Date Comments Refill 11/13/2015 Encounter Details Date Type Department Care Team Description 11/13/2015 Refill [facility] Tesha Maxwell PharmD Refill [address] [place] [address] [place], [place] [phone] (Wo rk) Social History Tobacco Use Types Packs/Day Years Used Date Smoking Tobacco: Never Smokeless Tobacco: Never Alcohol Use Standard Drinks/Week Comments No 0 (1 standard drink = 0.6 oz pure alcoho l) Sex Assigned at Date Recorded Not on file documented as of this encounter Nursing Notes Tesha Maxwell PharmD - 11/13/2015 7:34 AM CDT per CPA refill for metformin sent to [facility] pharmacy. Tesha Maxwell PharmD 11/13/2015, 7:35 AM documented in this encounter Plan of Treatment Not on filedocumented as of this encounter Visit Diagnoses Diagnosis Diabetes mellitus, type 2 (HRC) - Primar y Type II or unspecified type diabetes dinora litus without mention of complication, not stated as uncontrolled documented in this encounter Care Teams Condenser Cleaner Relationship Specialty Start Date End Date Alisha Kimball MD PCP - General 07/08/05 [address] [place] [address] documented as of this encounter
--- OUTSIDE RECORDS SUMMARY | 2022-06-10 14:25 | XMS_ITS | Encounter Summary ---
:1955 Author Organization [facility] Address [address] [place] [address] Care Team Providers Name Role Phone Alisha Kimball MD Primary Care Provider Encounter Details Date Type Department Care Team Description 11/30/2015 Lab Visit [facility] Essential hyper tension; Laboratory Hypercholesterolemia (HRC); [address] [facility] Diabetes mellitus, type 2 (H RC) [place], [place] [address] Social History Tobacco Use [...] Volume Laterality Urine specimen 11/30/2015 9:08 AM 11/29/2 016 9:30 (specimen) CDT AM CDT Narrative [facility] - 12/03/2015 2:50 PM C DT Performed at [facility], [address] [place] [address] ??[phone] Alisha Kimball MD LAB_1 Performing Organization Address [facility] Phon e Number [facility] [phone] (ABNORMAL) ALT (SGPT) (11/30/2015 9:08 AM CDT) P athologist Signature ALT (SGPT) 74 (H) 0 - 69 U/L [facility] Specimen Anatomical Collection Method Collection Time Receive d Time (Source) Location / / Volume Laterality 11/30/2015 9:08 AM 201 6 9:10 CDT AM CDT Narrative [facility] - 12/03/2015 12:22 PM CDT Performed at [facility], [address] [place] [address] ??[phone] Alisha Kimball MD LAB_1 Performing Organization Address City/[facility]/ZIP Code Phon e Number [facility] [phone] (ABNORMAL) HGB A1C (11/30/2015 9:08 AM CDT) [...] - 12/03/2015 12:24 PM CDT Performed at [facility], [address] [place] [address] ??[phone] Alisha Kimball MD LAB_1 Performing Organization Address City/[facility] Code Phon e Number [facility] [phone] (ABNORMAL) LIPID PANEL AND DIRECT LDL(IF NEEDED) [...] - 12/03/2015 12:22 PM CDT Performed at [facility], [address] [place] [address] ??[phone] Alisha Kimball MD LAB_1 Performing Organization Address City/[facility]/ZIP [facility] Phon e Number [facility] [phone] SODIUM (11/30/2015 9:08 AM CDT) P athologist Signature Sodium 143 135 - 145 [facility] mmol/L Specimen Anatomical Collection Method Collection Time Receive d Time (Source) Location / / Volume Laterality 11/30/2015 9:08 AM 6 9:10 CDT AM CDT Narrative [facility] - 12/03/2015 12:22 PM CDT Performed at [facility], [address] [place] [address] ??[phone] Alisha Kimball MD LAB_1 Performing Organization Address City/[facility] Phon e Number [facility] [phone] POTASSIUM (11/30/2015 9:08 AM CDT) P athologist Signature Potassium 4.8 3.5 - 5.3 [facility] mmol/L Specimen Anatomical Collection Method Collection Time Receive d Time (Source) Location / / Volume Laterality 11/30/2015 9:08 AM 6 9:10 CDT AM CDT Narrative [facility] - 12/03/2015 12:22 PM CDT Performed at [facility], [address] [place] [address] ??[phone] Alisha Kimball MD LAB_1 Performing Organization Address [facility] Phon e Number [facility] [phone] CREATININE / GFR (11/30/2015 9:08 AM CDT) [...] - 12/03/2015 12:22 PM CDT Performed at [facility], [address] [place] [address] ??[phone] Alisha Kimball MD LAB_1 Performing Organization Address City/State/ZIP Code Phon e Number [facility] [phone] documented in this encounter Visit Diagnoses Diagnosis Essential hypertension (HRC) Unspecified essential hypertension Hypercholesterolemia Pure hypercholesterolemia Diabetes mellitus, type 2 (HRC) Type II or unspecified type diabetes dinora litus without mention of complication, not stated as uncontrolled documented in this encounter Care Teams Supervisor Electronics Assembly Relationship Specialty Start Date End Date Alisha Kimball MD PCP - General 07/08/05 [address] [place] [address] documented as of this encounter
--- OUTSIDE RECORDS SUMMARY | 2022-06-10 14:26 | XMS_ITS | Encounter Summary ---
:1955 Author Organization [facility] Address [address] [place] [address] Care Team Providers Name Role Phone Alisha Kimball MD Primary Care Provider Reason for Visit Reason Onset Date Comments Medication Questions 12/17/2014 Encounter Details Date Type Department Care Team Description 12/17/2014 Telephone [facility] Tesha Maxwell, Medication Questions [address] [facility] [address] [address] [facility] [phone] [place], [place] [address] (Wo rk) Social History [...] back, requesting Accu-Chek Edilma be sent to [facility]. Tesha Maxwell PharmD - 12/17/2014 2:22 PM CDT Returned patient's call. Patient [place] in [place] a [place] and left her glucometer. [...] on filedocumented in this encounter Care Teams Snaker Tractor Driver Relationship Specialty Start Date End Date Alisha Kimball MD PCP - General 07/08/05 [address] [place] [address] documented as of this encounter
--- OUTSIDE RECORDS SUMMARY | 2022-06-10 14:26 | XMS_ITS | Encounter Summary ---
:1955 Author Organization [facility] Address [address] [place] [address] Care Team Providers Name Role Phone Alisha Kimball MD Primary Care Provider Reason for Visit Procedure/Equipment (Routine) - Incomplete Specialty Diagnoses / Procedures Referred By Contact Refer red To Contact Diagnoses Encounter for screening mammogram for malignant neoplasm of breast Alisha Kimball MD Procedures BILAT Mammogram screening [address] [place] [address] Referral ID Status Reason Start Date Expiration Date Visits V isits Requested Authorized [id number] Incomplete 10/30/2013 1 1 Encounter Details Date Type Department Care Team Description 11/01/2013 Imaging [facility] unter for screening Mammography mammogram for malignant [address] [place] [address] Social History Tobacco Use Types [...] mammogram documented in this encounter Care Teams Certified Alcohol Counselor Relationship Specialty Start Date End Date Alisha Kimball MD PCP - General 07/08/05 [address] [place] [address] documented as of this encounter
--- OUTSIDE RECORDS SUMMARY | 2022-06-10 14:26 | XMS_ITS | Encounter Summary ---
:1955 Author Organization [employer] Address [address] [place] [address] Care Team Providers Name Role Phone Alisha Kimball MD Primary Care Provider Reason for Visit Procedure/Equipment (Routine) - Incomplete Specialty Diagnoses / Procedures Referred By Contact Refer red To Contact Procedures David Kat MD US PELVIS COMPLETE W IVT [address] (RH/[facility] [place] [address] Referral ID Status Reason Start Date Expiration Date Visits V isits Requested Authorized [id number] Incomplete 08/24/2014 1 1 Encounter Details Date Type Department Care Team Description 08/24/2014 Imaging [facility] Ul trasound David Kat MD [address] [place] [address] Social History Tobacco Use Types Packs/Day [...] PM Res ults for this W EV CHILD CARE LEADER procedure are i n the results section. documented in this encounter Results US PELVIS COMPLETE W IVT (RH/HSC) (08/24/2014 3:20 PM CHILD CARE LEADER) Anatomical Region Laterality Modality Pelvis Ultrasound Specimen (Source) Anatomical Collection Method Collection Time Re ceived Time Location / / Volume Laterality 08/24/2014 3:20 PM CHILD CARE LEADER Narrative 08/24/2014 4:34 PM CHILD CARE LEADER US PELVIS COMPLETE W/IVT (UTERUS/OVARIES) 08/24/2014 3:20 [...] Nonvisualization of the ovaries. David Kat MD [facility] documented in this encounter Visit Diagnoses Not on filedocumented in this encounter Care Teams Curing Press Operator Relationship Specialty Start Date End Date Alisha Kimball MD PCP - General 07/08/05 [address] [place] [address] documented as of this encounter
--- OUTSIDE RECORDS SUMMARY | 2022-06-10 14:26 | XMS_ITS | Encounter Summary ---
:1955 Author Organization [facility] Address [address] [place] [address] Care Team Providers Name Role Phone Alisha Kimball MD Primary Care Provider Reason for Referral Procedure/Equipment (Routine) - Incomplete Specialty Diagnoses / Procedures Referred By Contact Refer red To Contact Procedures Provider, Not On File MAMMOGRAM SCREENING BILATERAL [address] [place] [address] Referral ID Status Reason Start Date Expiration Date Visits V isits Requested Authorized [id number] Incomplete 11/05/2014 1 1 Reason for Visit Procedure/Equipment (Routine) - Incomplete Specialty Diagnoses / Procedures Referred By Contact Refer red To Contact Procedures Provider, Not On File MAMMOGRAM SCREENING BILATERAL [address] [place] [address] Referral ID Status Reason Start Date Expiration Date Visits V isits Requested Authorized [id number] Incomplete 11/05/2014 1 1 Encounter Details Date Type Department Care Team Description 11/05/2014 Imaging [facility] ury Mammography [address] [place], [place] [phone] Social History Tobacco Use Types Packs/Day Years [...] on filedocumented in this encounter Care Teams Bleach Mixer Relationship Specialty Start Date End Date Alisha Kimball MD PCP - General 07/08/05 [address] [place] [address] documented as of this encounter
--- OUTSIDE RECORDS SUMMARY | 2022-06-10 14:26 | XMS_ITS | Encounter Summary ---
:1955 Author Organization [employer] Address [address] [place] [address] Care Team Providers Name Role Phone Alisha Kimball MD Primary Care Provider Reason for Visit Reason Comments LAB RESULTS A1C Encounter Details Date Type Department Care Team Description 04/19/2014 Telephone [facility] Alisha Steinberg MD LAB RESULTS (A1C) [address] [place] [address] [place], [place] [phone] (Wo rk) Social History Tobacco Use Types [...] morning.A1C in 4-6 weeks. Please also offer global president and diabetes education visits. Thanks! Alisha Kimball MD documented in this encounter Plan of Treatment Not on filedocumented as of this encounter Visit Diagnoses Not on filedocumented in this encounter Care Teams Asbestos Pipe Supervisor Relationship Specialty Start Date End Date Alisha Kimball MD PCP - General 07/08/[address] [place] [address] documented as of this encounter
--- OUTSIDE RECORDS SUMMARY | 2022-06-10 14:26 | XMS_ITS | Encounter Summary ---
:1955 Author Organization [facility] Address [address] [place] [address] Care Team Providers Name Role Phone Alisha Kimball MD Primary Care Provider Reason for Visit Reason Comments ROUTINE HEALTH MAINTENANCE Diabetic Foot Assessment Health Maintanence Declined hiv and hep c Encounter Details Date Type Department Care Team Description 11/05/2014 Office Visit [facility] Alisha Kimball, [facility] (Primary Dx); Practice MD Diabetes mellitus, type 2 (HRC); [address] [place] [address] [place], [place] [id number] Social History Tobacco Use Types Packs/Day Years [...] a Lab Onlyappointment online or by calling [phone]. For blood pressure: Hold the amlodipine for [...] Where can you learn more? Go to [employer]/SHERPA assistant and enter [id number] in the search box. Current as of: October 26, 2013 Content Version: 10.3 ?? [id number] [employer], [employer]. documented in this encounter Progress Notes Alisha [...] Results MICROALB/CREAT RATIO (11/05/2014 8:58 AM CDT) [facility] gist Method Time Signature Albumin, <0.5 [...] 1:39 PM C DT Performed at [facility], [address] [place] [address] ??[phone] Alisha Kimball MD LAB_1 Performing Organization Address City/State/ZIP Code Phon e Number [facility] [phone] documented in this encounter Visit Diagnoses Diagnosis [...] uncontrolled documented in this encounter Care Teams Teacher Adventure Education Relationship Specialty Start Date End Date Alisha Kimball MD PCP - General 07/08/05 [address] [place] [address] documented as of this encounter
--- OUTSIDE RECORDS SUMMARY | 2022-06-10 14:26 | XMS_ITS | Encounter Summary ---
:1955 Author Organization [employer] Address [address] [place] [address] Care Team Providers Name Role Phone Alisha Kimball MD Primary Care Provider Reason for Referral Procedure/Equipment (Routine) - Incomplete Specialty Diagnoses / Procedures Referred By Contact Refer red To Contact Procedures David Kat MD US PELVIS COMPLETE W IVT [address] (RH/HSC) [place] [address] Referral ID Status Reason Start Date Expiration Date Visits V isits Requested Authorized [id number] Incomplete 08/24/2014 1 1 CHING MACHINE OPERATOR Reason for Visit Reason Comments ABDOMINAL PAIN pain in lt overy area, hx hy sterectomy, mother had cervical cancer Encounter Details Date Type Department Care Team Description 08/24/2014 Office Visit [place] [facility] David Kat Abdominal pa in, generalized (Primary Dx); Rakesh Lunsford MD Pelvic pain in female; [address] Abdominal bloating [place], [place] [phone] Social History Tobacco Use Types Packs/Day Years Used Date Smoking Tobacco: Never Smokeless Tobacco: Never Alcohol Use Standard Drinks/Week Comments No 0 (1 standard drink = 0.6 oz pure alcoho l) Sex Assigned at Date Recorded Not on file documented as of this encounter Last Filed Vital Signs Vital Sign Reading Time Taken Comments Blood Pressure 133/88 08/24/2014 9:35 AM CLINCHING MACHINE OPERATOR Pulse 78 08/24/2014 9:35 AM CLINCHING MACHINE OPERATOR Temperature 36.1 ??C (97 ??F) 08/24/2014 9:35 AM CLINCHING MACHINE OPERATOR Respiratory Rate 14 08/24/2014 9:35 AM CLINCHING MACHINE OPERATOR Oxygen Saturation 96% 08/24/2014 9:35 AM CLINCHING MACHINE OPERATOR Inhaled Oxygen Concentration - - Weight 77.1 kg (170 lb) 08/24/2014 9:35 AM CLINCHING MACHINE OPERATOR Height 162.6 cm (5' 4) 08/24/2014 9:35 AM CLINCHING MACHINE OPERATOR Body Mass Index 29.18 08/24/2014 9:35 AM CLINCHING MACHINE OPERATOR documented in this encounter Patient Instructions [...] Where can you learn more? Go to [employer] and enter [id number] in the search box. Current as of: December 06, 2013 Content Version: 10.3 ?? [id number] [employer] PTY. CHING MACHINE OPERATOR documented in this encounter Progress Notes David [...] No cervix present. Right adnexal tenderness (Sabina, CIGAR BINDER present). EXT: No C/C/E. SKIN: Warm, dry. No apparent rashes or lesions. ASSESSMENT/PLAN: 1) Abdominal/pelvic pain - Check pelvic and abdominal US. Check lab work (See EPIC orders). Follow up in 2-[address] abdomen recommended, patient declined at this time. David Kat MD 08/24/2014, 9:58 AM CHING MACHINE OPERATOR documented in this encounter Plan of Treatment Not on filedocumented as of this encounter Results US PELVIS COMPLETE W IVT (RH/HSC) (08/24/2014 3:20 PM CLINCHING MACHINE OPERATOR) Anatomical Region Laterality Modality Pelvis Ultrasound Specimen (Source) Anatomical Collection Method Collection Time Re ceived Time Location / / Volume Laterality 08/24/2014 3:20 PM CLINCHING MACHINE OPERATOR Narrative 08/24/2014 4:34 PM CLINCHING MACHINE OPERATOR US PELVIS COMPLETE W/IVT (UTERUS/OVARIES) 08/24/2014 3:20 [...] Nonvisualization of the ovaries. David Kat MD [facility] H. PYLORI IGG (08/24/2014 10:24 AM CLINCHING MACHINE OPERATOR) [facility] gist Method Time Signature H. pylori IgG Negative NEG [facility] Specimen Anatomical Collection Method Collection Time Receive d Time (Source) Location / / Volume Laterality 08/24/2014 10:24 08/24/2014 AM CLINCHING MACHINE OPERATOR 10:25 AM CLINCHING MACHINE OPERATOR Narrative [facility] - 08/27/2014 2:[address] Performed at [facility], [address] [place] [address] ??[id number] David Kat MD LAB_1 Performing Organization Address City/State/ZIP Code Phon e Number [facility] [phone] URINE CULTURE (08/24/2014 10:24 AM CLINCHING MACHINE OPERATOR) Component Value Ref Test Analysis [facility] Method Time Signature Specimen Urine [facility] Description Midstream [facility] Special Unspecified [facility] Requests [facility] Culture No Growth [facility] After 1 Day [facility] Report Status Final [facility] 08/25/2014 [facility] Specimen Anatomical Collection Method Collection Time Receive d Time (Source) Location / / Volume Laterality 08/24/2014 10:24 08/24/2014 AM CLINCHING MACHINE OPERATOR 10:25 AM CLINCHING MACHINE OPERATOR Narrative [facility] - 08/25/2014 1:[address] Performed at [facility] , [address] [place] [id number] David Kat MD LAB_1 Performing Organization Address City/[facility] Phon e Number [facility] [phone] (ABNORMAL) UA WITH MICRO (08/24/2014 10:24 AM CLINCHING MACHINE OPERATOR) [facility] [employer] Method Time Signature Urine Color Yellow [facility] [...] / Volume Laterality 08/24/2014 10:24 08/24/2014 AM CLINCHING MACHINE OPERATOR 10:25 AM CLINCHING MACHINE OPERATOR Narrative [facility] - 08/24/2014 10:37 AM CLINCHING MACHINE OPERATOR Performed at [facility], [address] [facility], [place], [place] ??[address] David Kat MD LAB_1 Performing Organization Address City/[facility]/ZIP [facility] Phon e Number [facility] [phone] (ABNORMAL) BASIC METABOLIC PANEL (08/24/2014 10:24 AM CLINCHING MACHINE OPERATOR) Patholo gist Method Time Signature Sodium 143 135 [...] / Volume Laterality 08/24/2014 10:24 08/24/2014 AM CLINCHING MACHINE OPERATOR 10:25 AM CLINCHING MACHINE OPERATOR Narrative [facility] - 08/24/2014 2:[address] Performed at [facility], [address] [place] [address] ??[phone] Daivd Kat MD LAB_1 Performing Organization Address [facility] Phon e Number [facility] [phone] (ABNORMAL) C-REACTIVE PROTEIN (08/24/2014 10:24 AM CLINCHING MACHINE OPERATOR) [facility] [employer] Method Time Signature C-Reactive 5.7 (H) 0.0 - 0.9 [facility] Protein mg/dl LABORATORIES Comment: Note: results are expressed in mg/dL. Specimen Anatomical Collection Method Collection Time Receive d Time (Source) Location / / Volume Laterality 08/24/2014 10:24 08/24/2014 AM CLINCHING MACHINE OPERATOR 10:25 AM CLINCHING MACHINE OPERATOR Narrative [facility] - 08/24/2014 2:[address] Performed at [facility], [address] [place] [address] ??[phone] David Kat MD LAB_1 Performing Organization Address [facility] Phon e Number [facility] [phone] HEMOGRAM/PLTS/DIFF (08/24/2014 10:24 AM CLINCHING MACHINE OPERATOR) Analysis Performed At Patho logist [...] [facility] Lymph 24 % [facility] [place] 7 % [facility] Eos 2 % [facility] Baso 1 % [facility] Neutrophil 5.4 1.8 - 7.7 [facility] Absolute k/ul LAB[facility]IES Lymph Absolute 2.0 1.0 - 4.8 [facility] k/ul [facility] [place] Absolute 0.6 0.1 - 0.7 [facility] k/ul [facility] Eos Absolute 0.2 0.0 - 0.5 [facility] k/ul [facility] Baso Absolute 0.1 0.0 - 0.2 [facility] k/ul [facility] Specimen Anatomical Collection Method Collection Time Receive d Time (Source) Location / / Volume Laterality 08/24/2014 10:24 08/24/2014 AM CLINCHING MACHINE OPERATOR 10:25 AM CLINCHING MACHINE OPERATOR Narrative [facility] - 08/24/2014 10:39 AM CLINCHING MACHINE OPERATOR Performed at [facility], [address] [place], [place] ??[address] David Kat MD LAB_1 Performing Organization Address City/State/ZIP Code Phon e Number [facility] [phone] documented in this encounter Visit Diagnoses Diagnosis Abdominal pain, generalized - Primary Pelvic pain in female Unspecified symptom associated with fema le genital organs Abdominal bloating Flatulence, eructation, and gas pain Abdominal pain, generalized documented in this encounter Care Teams Flat Grinder Operator Relationship Specialty Start Date End Date Alisha Kimball MD PCP - General 07/08/05 [address] [place] [address] documented as of this encounter
--- OUTSIDE RECORDS SUMMARY | 2022-06-10 14:26 | XMS_ITS | Encounter Summary ---
:1955 Author Organization [email or web address] Address [address] [address] Care Team Providers Name Role Phone Alisha Kimball MD Primary Care Provider Reason for Visit Reason Comments Refill Encounter Details Date Type Department Care Team Description 09/11/2014 Refill [facility] Alisha Kimball MD Refill [address] [facility]. [address] [place] [address] [place], [place] [phone] (Wo rk) Social History Tobacco Use Types [...] two times a day. (changed) Powered by [employer], Reference: [id number], 09/11/2014 7:15:14 AM CDT, Pool: [place] REFILL RN ([id number]) documented in this encounter Plan of Treatment Not on filedocumented as of this encounter Visit Diagnoses Not on filedocumented in this encounter Care Teams Chairman Of The Board Relationship Specialty Start Date End Date Alisha Kimball MD PCP - General 07/08/05 [address] [place] [address] documented as of this encounter
--- OUTSIDE RECORDS SUMMARY | 2022-06-10 14:26 | XMS_ITS | Encounter Summary ---
:1955 Author Organization [employer] Address [address] [place] [address] Care Team Providers Name Role Phone Alisha Kimball MD Primary Care Provider Encounter Details Date Type Department Care Team Description 10/30/2013 Orders Only [place] [facility] Diabetes mellitus, type 2; [address] Hypercholesterolemia; [place] [address] Hypertension; [phone] Screening for t hyroid disorder; Screening, anem [...] 10/30/2013 1:03 PM C DT Performed at [facility], [address] [place] [address] ??[phone] Alisha Kimball MD LAB_1 Performing Organization Address City/State/ZIP Code Phon e Number [facility] [phone] TSH, SENSITIVE with FT4, FT3 (if needed) (10/30/2013 7:37 AM CDT) athologist Signature TSH, with 1.465 0.300 - [facility] Reflex 5.000 LAB[facility]ATORIES uIU/ml Specimen Anatomical Collection Method Collection Time Receive d Time (Source) Location / / Volume Laterality 10/30/2013 7:37 AM 4 7:39 CDT AM CDT Narrative [facility] - 10/30/2013 2:45 PM C DT Performed at [facility], [address] [place] [address] ??[phone] Alisha Kimball MD LAB_1 Performing Organization Address [facility]/ZIP Code Phon e Number [facility] [phone] SODIUM (10/30/2013 7:37 AM CDT) athologist Signature Sodium 140 135 - 145 [facility] mmol/L Specimen Anatomical Collection Method Collection Time Receive d Time (Source) Location / / Volume Laterality 10/30/2013 7:37 AM 4 7:39 CDT AM CDT Narrative [facility] - 10/30/2013 2:04 PM C DT Performed at [facility], [address] [place] [address] ??[phone] Alisha Kimball MD LAB_1 Performing Organization Address [facility] Phon e Number [facility] [phone] POTASSIUM (10/30/2013 7:37 AM CDT) athologist Signature Potassium 4.2 3.5 - 5.3 [facility] mmol/L Specimen Anatomical Collection Method Collection Time Receive d Time (Source) Location / / Volume Laterality 10/30/2013 7:37 AM 4 7:39 CDT AM CDT Narrative [facility] - 10/30/2013 2:04 PM C DT Performed at [facility], [address] [place] [address] ??[phone] Alisha Kimball MD LAB_1 Performing Organization Address City/[facility]/ZIP Code Phon e Number [facility] [phone] ALT (SGPT) (10/30/2013 7:37 AM CDT) athologist Signature ALT (SGPT) 52 0 - 69 U/L [facility] Specimen Anatomical Collection Method Collection Time Receive d Time (Source) Location / / Volume Laterality 10/30/2013 7:37 AM 4 7:39 CDT AM CDT Narrative [facility] - 10/30/2013 2:04 PM C DT Performed at [facility], [address] [place] [address] ??[phone] Alisha Kimball MD LAB_1 Performing Organization Address City/[facility] Code Phon e Number [facility] [phone] MICROALB/CREAT RATIO (10/30/2013 7:37 AM CDT) Patholo [...] 10/30/2013 1:21 PM C DT Performed at [facility], [address] [place] [address] ??[phone] Alisha Kimball MD LAB_1 Performing Organization Address City/[facility] Phon e Number [facility] [phone] CREATININE / GFR (10/30/2013 7:37 AM CDT) [...] 10/30/2013 2:04 PM C DT Performed at [facility], [address] [place] [address] ??[phone] Alisha Kimball MD LAB_1 Performing Organization Address City/[facility]/ZIP Code Phon e Number [facility] [phone] (ABNORMAL) LIPID PANEL AND DIRECT LDL(IF NEEDED) [...] 10/30/2013 2:04 PM C DT Performed at [facility] [employer] [facility], [address] [place] [address] ??[phone] Alisha Kimball MD LAB_1 Performing Organization Address [facility] Phon e Number [facility] [phone] (ABNORMAL) HGB A1C (10/30/2013 7:37 AM CDT) [...] 10/30/2013 1:58 PM C DT Performed at [facility], [address] [place] [address] ??[phone] Alisha Kimball MD LAB_1 Performing Organization Address City/[facility] Phon e Number [facility] [phone] documented in this encounter Visit Diagnoses Diagnosis Diabetes mellitus, type 2 (HRC) Type II or unspecified type diabetes dinora litus without mention of complication, not stated as uncontrolled Hypercholesterolemia Pure hypercholesterolemia Hypertension (HRC) Unspecified essential hypertension Screening for thyroid disorder Screening, anemia, deficiency, iron Screening for iron deficiency anemia documented in this encounter Care Teams Environmental Health Inspector Relationship Specialty Start Date End Date Alisha Kimball MD PCP - General 07/08/05 [address] [place] [id number] documented as of this encounter
--- OUTSIDE RECORDS SUMMARY | 2022-06-10 14:26 | XMS_ITS | Encounter Summary ---
:1955 Author Organization [employer] Address [address] [place] [address] Care Team Providers Name Role Phone Alisha Kimball MD Primary Care Provider Reason for Visit Reason Onset Date Comments Disease Registry 10/24/2013 Encounter Details Date Type Department Care Team Description 10/24/2013 Telephone [facility] Alisha Kimball MD Disease Registry [address] [facility]. [address] [place] [address] [place] [address] [phone] (Wo rk) Social History Tobacco Use Types [...] filedocumented in this encounter Care Teams Coal Chute Worker Relationship Specialty Start Date End Date Alisha Kimball MD PCP - General 07/08/05 [address] [place], [place] [phone] documented as of this encounter
--- OUTSIDE RECORDS SUMMARY | 2022-06-10 14:26 | XMS_ITS | Encounter Summary ---
:1955 Author Organization [employer] Address [address], [place] [address] Care Team Providers Name Role Phone Alisha Kimball MD Primary Care Provider Encounter Details Date Type Department Care Team Description 10/30/2013 Orders Only [facility] Alisha Kimball, Diabetes mellitus, Practice MD type 2 (Primary Dx) [address] [facility]. [address] [place] [address] [place], [place] [phone] Social History Tobacco Use Types Packs/Day Years [...] - 04/16/2014 12:25 PM CDT Performed at [facility], [address] [place] [phone] Alisha Kimball MD LAB_1 Performing Organization Address City/State/ZIP Code Phon e Number [facility] [phone] documented in this encounter Visit Diagnoses Diagnosis Diabetes mellitus, type 2 (HRC) - Primar y Type II or unspecified type diabetes dinora litus without mention of complication, not stated as uncontrolled Diabetes mellitus, type 2 (HRC) Type II or unspecified type diabetes dinora litus without mention of complication, not stated as uncontrolled documented in this encounter Care Teams Telecom Coordinator Relationship Specialty Start Date End Date Alisha Kimball MD PCP - General 07/08/05 [address] [place] [address] documented as of this encounter
--- OUTSIDE RECORDS SUMMARY | 2022-06-10 14:26 | XMS_ITS | Encounter Summary ---
:1955 Author Organization [facility] Address [address] [place] [address] Care Team Providers Name Role Phone Alisha [...] call. David Kat MD 08/28/2014, 5:20 PM [employer] documented in this encounter Plan of Treatment Not on filedocumented as of this encounter Visit Diagnoses Not on filedocumented in this encounter Care Teams Court Abstractor Relationship Specialty Start Date End Date Alisha Kimball MD PCP - General 07/08/[address] [place], [place] [phone] documented as of this encounter
--- OUTSIDE RECORDS SUMMARY | 2022-06-10 14:26 | XMS_ITS | Encounter Summary ---
:1955 Author Organization [facility] Address [address] [place] [address] Care Team Providers Name Role Phone Alisha Kimball MD Primary Care Provider Encounter Details Date Type Department Care Team Description 11/01/2013 Orders Only [facility] MD [employer] Contact Bill [address] [place] [address] Mailstop [id number] [phone] (Wo rk) Social History Tobacco Use Types [...] on filedocumented in this encounter Care Teams Oysterman Relationship Specialty Start Date End Date Alisha Kimball MD PCP - General 07/08/[address] [place], [place] [phone] documented as of this encounter
--- OUTSIDE RECORDS SUMMARY | 2022-06-10 14:26 | XMS_ITS | Encounter Summary ---
:1955 Author Organization [employer] Address [address] [place] [address] Care Team Providers Name Role Phone Alisha Kimball MD Primary Care Provider Reason for Visit Reason Comments MEDICATION THERAPY MANAGEMENT SEGIP Encounter Details Date Type Department Care Team Description 11/05/2014 Office Visit [facility] Tesha Maxwell, Diabetes mellitus, type 2 (H RC) (Primary Dx); [address] PharmD Essential hypertension; [place] [address] [address] Hypercholesterolemia [phone] [place], [place] [phone] Social History Tobacco Use Types Packs/Day Years [...] you have questions. Thanks, Tesha Maxwell PharmD [facility] on Wednesday & Wednesday: [phone] [facility] on & Wednesday: [phone] documented in this encounter Progress Notes [...] me in 6 month(s) for follow-up. Updated [employer] med list and reviewed medications including indications [...] hypercholesterolemia documented in this encounter Care Teams Director Of Cardiology Service Line Relationship Specialty Start Date End Date Alisha Kimball MD PCP - General 07/08/05 [address] [place] [address] documented as of this encounter
--- OUTSIDE RECORDS SUMMARY | 2022-06-10 14:26 | XMS_ITS | Encounter Summary ---
:1955 Author Organization [employer] Address [address] [place] [address] Care Team Providers Name Role Phone Alisha Kimball MD Primary Care Provider Encounter Details Date Type Department Care Team Description 10/27/2014 Orders Only [place] Diabetes mellit us, type 2 ([facility]); Laboratory Hypercholesterolemia [address] [place], [place] [phone] Social History Tobacco Use Types Packs/Day Years [...] LDL(IF NEEDED) (10/27/2014 9:03 AM CDT) [facility] gist Method Time Signature Hours Fasting 12 [...] - 10/29/2014 12:02 PM CDT Performed at [facility], [address] [place] [phone] Alisha Kimball MD LAB_1 Performing Organization Address [facility] Phon e Number [facility] [phone] (ABNORMAL) HGB A1C (10/27/2014 9:03 AM CDT) [...] AM 5 9:04 CDT AM CDT Narrative [facility] [facility] - 10/29/2014 12:07 PM CDT Performed at [facility], [address] [place] [phone] Alisha Kimball MD LAB_1 Performing Organization Address [facility] Phon e Number [employer] [facility] [phone] documented in this encounter Visit Diagnoses Diagnosis Diabetes mellitus, type 2 (HRC) Type II or unspecified type diabetes dinora litus without mention of complication, not stated as uncontrolled Hypercholesterolemia Pure hypercholesterolemia documented in this encounter Care Teams Sr. Logistics Analyst Relationship Specialty Start Date End Date Alisha Kimball MD PCP - General 07/08/05 [address] [place] [address] documented as of this encounter
--- OUTSIDE RECORDS SUMMARY | 2022-06-10 14:26 | XMS_ITS | Encounter Summary ---
:1955 Author Organization [facility] Address [address] [place] [address] Care Team Providers Name Role Phone Alisha Kimball MD Primary Care Provider Encounter Details Date Type Department Care Team Description 04/16/2014 Orders Only [facility] Diabetes mellitus, type [address] [place] [address] Social History Tobacco Use Types [...] 12:25 PM CDT Performed at [facility], [address] [place] [phone] Alisha Kimball MD LAB_1 Performing Organization Address City/State/ZIP Code Phon e Number [facility] [phone] documented in this encounter Visit Diagnoses Diagnosis Diabetes mellitus, type 2 (HRC) Type II or unspecified type diabetes dinora litus without mention of complication, not stated as uncontrolled documented in this encounter Care Teams It Project Manager Relationship Specialty Start Date End Date Alisha Kimball MD PCP - General 07/08/05 [address] [place] [address] documented as of this encounter
--- OUTSIDE RECORDS SUMMARY | 2022-06-10 14:26 | XMS_ITS | Encounter Summary ---
:1955 Author Organization [employer] Address [address] [place] [address] Care Team Providers Name Role Phone Alisha Kimball MD Primary Care Provider Encounter Details Date Type Department Care Team Description 09/24/2013 Notes/Orders [facility] Alisha Kimball, Issue of repeat Practice prescriptions (Primary [address] Dx) [place] [address] [place], [place] [phone] Social History Tobacco Use Types Packs/Day Years [...] - NEXT LAB APPOINTMENT: 09/29/2013 Powered by [employer], Reference: [id number], 09/24/2013 8:49:09 PM CDT documented in this encounter Plan of Treatment Not on filedocumented as of this encounter Visit Diagnoses Diagnosis Issue of repeat prescriptions - Primary documented in this encounter Care Teams Scrap Drop Crane Operator Relationship Specialty Start Date End Date Alisha Kimball MD PCP - General 07/08/05 [address] [place] [address] documented as of this encounter
--- OUTSIDE RECORDS SUMMARY | 2022-06-10 14:26 | XMS_ITS | Encounter Summary ---
:1955 Author Organization [facility] Address [address] [place] [address] Care Team Providers Name Role Phone Alisha Kimball MD Primary Care Provider Encounter Details Date Type Department Care Team Description 08/24/2014 Orders Only [facility] Abdominal pain, [address] [place] [address] Social History Tobacco Use Types [...] Abdominal pain, Res ults for this COUNT-W/DIFF ROD PLACER generalized procedure are i n the results section. URINE CULTURE Routine 08/24/2014 10:24 AM Abdominal pain, Resu lts for this ROD PLACER generalized procedure are i n the results section. BASIC METABOLIC Routine 08/24/2014 10:24 AM Abdominal pain, Re sults for this PANEL ROD PLACER generalized procedure are i n the results section. H. PYLORI IGG Routine 08/24/2014 10:24 AM Abdominal pain, Resu lts for this ROD PLACER generalized procedure are i n the results section. C-REACTIVE PROTEIN Routine 08/24/2014 10:24 AM Abdominal pain, Results for this ROD PLACER generalized procedure are i n the results section. UA WITH MICRO Waiting 08/24/2014 10:24 AM Abdominal pain, Resu lts for this ROD PLACER generalized procedure are i n the results section. documented in this encounter Results H. PYLORI IGG (08/24/2014 10:24 AM ROD PLACER) [facility] [employer] [facility] Method Time Signature H. pylori IgG Negative NEG [facility] Specimen Anatomical Collection Method Collection Time Receive d Time (Source) Location / / Volume Laterality 08/24/2014 10:24 08/24/2014 AM ROD PLACER 10:25 AM ROD PLACER Narrative [facility] - 08/27/2014 2:[address] Performed at [facility], [address] [place] [address] ??[phone] David Kat MD LAB_1 Performing Organization Address City/[facility] Phon e Number [facility] [phone] URINE CULTURE (08/24/2014 10:24 AM ROD PLACER) Component Value Ref Test Analysis Performed At [facility] Method Time Signature Specimen Urine [facility] Description [facility] Special Unspecified [facility] Requests [facility] Culture No Growth [facility] After 1 Day [facility] Report Status Final [facility] 08/25/2014 [facility] Specimen Anatomical Collection Method Collection Time Receive d Time (Source) Location / / Volume Laterality 08/24/2014 10:24 08/24/2014 AM ROD PLACER 10:25 AM ROD PLACER Narrative [facility] - 08/25/2014 1:[address] Performed at [facility] , [address] [place] [address] David Kat MD LAB_1 Performing Organization Address City/[facility]/ZIP Code Phon e Number [facility] [phone] (ABNORMAL) UA WITH MICRO (08/24/2014 10:24 AM ROD PLACER) [facility] [employer] [facility] Method Time Signature Urine Color Yellow [facility] [...] / Volume Laterality 08/24/2014 10:24 08/24/2014 AM ROD PLACER 10:25 AM ROD PLACER Narrative [facility] - 08/24/2014 10:37 AM ROD PLACER Performed at [facility], [address] [place] [address] ??[phone] David Kat MD LAB_1 Performing Organization Address City/[facility]/ZIP [facility] Phon e Number [facility] [phone] (ABNORMAL) BASIC METABOLIC PANEL (08/24/2014 10:24 AM ROD PLACER) [facility] Method Time Signature Sodium 143 135 - [...] / Volume Laterality 08/24/2014 10:24 08/24/2014 AM ROD PLACER 10:25 AM ROD PLACER Narrative [facility] - 08/24/2014 2:[address] Performed at [facility], [address] ??[address] David Kat MD LAB_1 Performing Organization Address City/[facility]/ZIP Code Phon e Number [facility] [phone] (ABNORMAL) C-REACTIVE PROTEIN (08/24/2014 10:24 AM ROD PLACER) [facility] Method Time Signature C-Reactive 5.7 (H) 0.0 - 0.9 [facility] Protein mg/dl LAB[facility]ATORIES Comment: Note: results are expressed in mg/dL. Specimen Anatomical Collection Method Collection Time Receive d Time (Source) Location / / Volume Laterality 08/24/2014 10:24 08/24/2014 AM ROD PLACER 10:25 AM ROD PLACER Narrative [facility] - 08/24/2014 2:[address] Performed at [facility], [address] ??[phone] David Kat MD LAB_1 Performing Organization Address City/State/ZIP Code Phon e Number [facility] [phone] HEMOGRAM/PLTS/DIFF (08/24/2014 10:24 AM ROD PLACER) Analysis Performed At [facility] logist Time Signature WBC 8.2 4.0 [...] [facility] Lymph 24 % [facility] [place] 7 % [facility] Eos 2 % [facility] Baso 1 % [facility] Neutrophil 5.4 1.8 - 7.7 [facility] Absolute k/ul LABOR[facility]IES Lymph Absolute 2.0 1.0 - 4.8 [facility] k/ul [facility] [place] Absolute 0.6 0.1 - 0.7 [facility] k/ul [facility] Eos Absolute 0.2 0.0 - 0.5 [facility] k/ul [facility] Baso Absolute 0.1 0.0 - 0.2 [facility] k/ul [facility] Specimen Anatomical Collection Method Collection Time Receive d Time (Source) Location / / Volume Laterality 08/24/2014 10:24 08/24/2014 AM ROD PLACER 10:25 AM ROD PLACER Narrative [facility] - 08/24/2014 10:39 AM ROD PLACER Performed at [facility], [address] [place], [place] ??[address] David Kat MD LAB_1 Performing Organization Address City/State/ZIP Code Phon e Number [facility] [phone] documented in this encounter Visit Diagnoses Diagnosis Abdominal pain, generalized documented in this encounter Care Teams Cultural Anthropology Professor Relationship Specialty Start Date End Date Alisha Kimball MD PCP - General 07/08/05 [address] [place], [place] [id number] documented as of this encounter
--- OUTSIDE RECORDS SUMMARY | 2022-06-10 14:26 | XMS_ITS | Encounter Summary ---
:1955 Author Organization [employer] [facility] Address [address] [place] [address] Care Team Providers Name Role Phone Alisha Kimball MD Primary Care Provider Reason for Visit Reason Comments MEDICATION THERAPY MANAGEMENT SEGIP Encounter Details Date Type Department Care Team Description 05/21/[address] [facility] Tesha Maxwell, Diabetes mellitus, type 2 (P rimary Dx); [address] PharmD Hypertension; [place] [address] [address] Hypercholesterolemia [phone] [place], [place] [id number] Social History Tobacco Use Types Packs/Day Years Used Date Smoking Tobacco: Never Smokeless Tobacco: Never Alcohol Use Standard Drinks/Week Comments No 0 (1 standard drink = 0.6 oz pure alcoho l) Sex Assigned at Date Recorded Not on file documented as of this encounter Last Filed Vital Signs Vital Sign Reading Time Taken Comments Blood Pressure 126/89 05/21/2014 10:42 AM ENGINEER INTERN Pulse 83 05/21/2014 10:42 AM ENGINEER INTERN Temperature - - Respiratory Rate - - [...] you have questions. Thanks, Tesha Maxwell PharmD [facility] on Wednesday & Wednesday: [phone] [facility] on & Wednesday: [phone] NEER INTERN documented in this encounter Progress Notes Tesha Maxwell PharmD - 05/21/2014 10:23 AM CST S Loc Velasco was referred to Medication Therapy Management Services by [facility] for diabetes management/education. Melia presents today for [...] PharmD Clinical Pharmacist Medication Therapy Management Program NEER INTERN documented in this encounter Plan of Treatment Not on filedocumented as of this encounter Visit Diagnoses Diagnosis Diabetes mellitus, type 2 (HRC) - Primar y Type II or unspecified type diabetes dinora litus without mention of complication, not stated as uncontrolled Hypertension (HRC) Unspecified essential hypertension Hypercholesterolemia Pure hypercholesterolemia documented in this encounter Care Teams Pesticide Applicator Relationship Specialty Start Date End Date Alisha Kimball MD PCP - General 07/08/05 [address] [place] [address] documented as of this encounter
--- OUTSIDE RECORDS SUMMARY | 2022-06-10 14:26 | XMS_ITS | Encounter Summary ---
:1955 Author Organization [employer] Address [address] [address] Care Team Providers Name Role Phone Alisha Kimball MD Primary Care Provider Reason for Visit Reason Onset Date Comments Medication Questions 06/02/2014 Encounter Details Date Type Department Care Team Description 06/02/2014 Telephone [facility] Alisha Kimball MD Medication Questions Practice [address] [place] [address] [place], [place] [address] [phone] Social History Tobacco Use Types Packs/Day Years Used Date Smoking Tobacco: Never Smokeless Tobacco: Never Alcohol Use Standard Drinks/Week Comments No 0 (1 standard drink = 0.6 oz pure alcoho l) Sex Assigned at Date Recorded Not on file documented as of this encounter Nursing Notes Valeria Villa - 06/12/2014 9:23 AM CST Lm Encounter closed MECHANIC Alisha Kimball MD - 06/05/2014 5:28 PM CST Refill sent. Alisha Kimball MD MECHANIC Tara Ricketts - 06/05/2014 3:59 PM CST [...] with the metformin? Thanks! Alisha Kimball MD MECHANIC Erlinda Dickerson RN - 06/04/2014 8:08 AM CST Last Visit: 10/30/13 See below Erlinda Dickerson RN MECHANIC Jodi Dick - 06/02/2014 12:55 PM CST Patient states metformin dose has been increased. Pharmacy would need prescription to reflect new dose. Please review MECHANIC documented in this encounter Plan of Treatment Not on filedocumented as of this encounter Visit Diagnoses Diagnosis Diabetes mellitus, type 2 (HRC) - Primar y Type II or unspecified type diabetes dinora litus without mention of complication, not stated as uncontrolled documented in this encounter Care Teams Car Sander Relationship Specialty Start Date End Date Alisha Kimball MD PCP - General 07/08/05 [address] [place] [address] documented as of this encounter
--- OUTSIDE RECORDS SUMMARY | 2022-06-10 14:26 | XMS_ITS | Encounter Summary ---
:1955 Author Organization [facility] Address [address], [place] [address] Care Team Providers Name Role Phone Alisha Kimball MD Primary Care Provider Reason for Referral Procedure/Equipment (Routine) - Incomplete Specialty Diagnoses / Procedures Referred By Contact Refer red To Contact Diagnoses Encounter for screening mammogram for malignant neoplasm of breast Alisha Kimball MD Procedures BILAT Mammogram screening [address] [place] [address] Referral ID Status Reason Start Date Expiration Date Visits V isits Requested Authorized [id number] Incomplete 10/30/2013 1 1 Reason for Visit Reason Comments ROUTINE HEALTH MAINTENANCE Encounter Details Date Type Department Care Team Description 10/30/2013 Office Visit [facility] Alisha Kimball, [facility] (Primary Dx); Practice MD Encounter for screening mammogram for ma lignant neoplasm of breast [address] [place] [address] [place] [address] [phone] Social History Tobacco Use Types Packs/Day Years [...] mammogram documented in this encounter Care Teams Benefit Director Relationship Specialty Start Date End Date Alisha Kimball MD PCP - General 07/08/05 [address] [place] [address] documented as of this encounter
--- OUTSIDE RECORDS SUMMARY | 2022-06-10 14:26 | XMS_ITS | Encounter Summary ---
:1955 Author Organization [facility] Address [address] [place] [address] Care Team Providers Name Role Phone Alisha Kimball MD Primary Care Provider Encounter Details Date Type Department Care Team Description 05/21/2014 Orders Only [facility] Diabetes mellitus, type [address] [place] [address] Social History Tobacco Use Types [...] 7:33 AM Diabetes mellitus, Results for this ROOFER HELPER VINYL COATING type 2 procedure are i n the results section. HGB A1C Routine 05/21/2014 7:33 AM Diabetes mellitus, Res ults for this ROOFER HELPER VINYL COATING type 2 procedure are i n the results section. documented in this encounter Results CREATININE / GFR (05/21/2014 7:33 AM ROOFER HELPER VINYL COATING) Analysis Performed At Patho logist Time Signature Creatinine 0.90 0.52 - [facility] 1.04 mg/dl LAB[facility]ATORIES GFR, Estimated >60 >60 [facility] ml/min/1.7 LABORATORIES 3m2 GFR, Est., If >60 >60 [facility] Black ml/min/1.7 LABORATORIES 3m2 Specimen Anatomical Collection Method Collection Time Receive d Time (Source) Location / / Volume Laterality 05/21/2014 7:33 AM 4 7:34 ROOFER HELPER VINYL COATING AM ROOFER HELPER VINYL COATING Narrative [facility] - 05/21/2014 1:[address] [facility], [address] ??[phone] Alisha Kimball MD LAB_1 Performing Organization Address [facility] Phon e Number [facility] [phone] (ABNORMAL) HGB A1C (05/21/2014 7:33 AM ROOFER HELPER VINYL COATING) P athologist Signature Hgb A1c 7.5 (H) [...] Volume Laterality 05/21/2014 7:33 AM 4 7:34 ROOFER HELPER VINYL COATING AM ROOFER HELPER VINYL COATING Narrative [facility] - 05/21/2014 1:[address] [facility]formed [facility], [address] [place] [phone] Alisha Kimball MD LAB_1 Performing Organization Address [facility] Phon e Number [facility] [phone] documented in this encounter Visit Diagnoses Diagnosis Diabetes mellitus, type 2 (HRC) Type II or unspecified type diabetes dinora litus without mention of complication, not stated as uncontrolled documented in this encounter Care Teams Recreational Therapy Technician Relationship Specialty Start Date End Date Alisha Kimball MD PCP - General 07/08/05 [address] [place] [address] documented as of this encounter
--- OUTSIDE RECORDS SUMMARY | 2022-06-10 14:26 | XMS_ITS | Encounter Summary ---
:1955 Author Organization [employer] Address [address], [place] [address] Care Team Providers Name Role Phone Alisha Kimball MD Primary Care Provider Reason for Visit Reason Comments Refill Encounter Details Date Type Department Care Team Description 12/09/2013 Refill [facility] Alisha Kimball MD Refill [address] [facility]. [address] [place] [address] [place], [place] [phone] (Wo rk) Social History Tobacco Use Types [...] - LDL: 78.0mg/dL on 10/30/2013 Powered by [employer], Reference: [id number], 12/09/2013 2:55:15 PM CDT documented in this encounter Plan of Treatment Not on filedocumented as of this encounter Visit Diagnoses Diagnosis Unspecified essential hypertension (HRC) Unspecified essential hypertension Pure hypercholesterolemia documented in this encounter Care Teams Grill Cook Relationship Specialty Start Date End Date Alisha Kmiball MD PCP - General 07/08/05 [address] [place] [address] documented as of this encounter
--- OUTSIDE RECORDS SUMMARY | 2022-06-10 14:27 | XMS_ITS | Encounter Summary ---
:1955 Author Organization [employer] Address [address] [place] [address] Care Team Providers Name Role Phone Alisha Kimball MD Primary Care Provider Reason for Visit Reason Comments DIABETES, MELLITUS Encounter Details Date Type Department Care Team Description 10/31/2012 Office Visit [facility] Alisha Kimball, Diabetes mellitus type II (HRC) (Primary Dx); Practice MD Need for prophylactic vaccination agains t Streptococcus pneumoniae (pneumococcus); [address] Hypercholesterolemia; [place] [address] [place], [place] Elevated liver enzymes [phone] [address] Social History Tobacco Use Types Packs/Day Years [...] Lab Only appointment online or by calling [phone]. Understanding Optimal Diabetes Care Goals The five optimal diabetes care goals shown below were designed to measure how well your diabetes is being managed. When all five goals are achieved, your risk for health problems associated with diabetes is greatly reduced. The [facility] Team is available to help you reach your goals. Diabetes is a disease requiring daily attention. For this reason, you are the most important person of the [facility] Diabetes Team. Name: Loc Velasco Guideline Goal [...] a list of these classes, please visit [email or web address] and click on the Health and Wellness tab or call the appointment center at [phone] to register for a class. Depending on your insurance coverage, a fee to participate in certain classes may apply documented in this encounter Progress Notes Alisha Kimball MD - 10/31/2012 8:01 PM CDT S: Loc Velasco is a 57 yr old female never smoker seen for follow up of her type 2 diabetes. Shewas seen for a [facility] visit recently and she had her [...] committed to weight loss and exercise. Declines candy counter clerk and diabetes nurse visits. See the patient [...] 12/16/2012 2:00 PM C DT Performed at [facility], [address] [place] [phone] Alisha Kimball MD LAB_1 Performing Organization Address [facility] Phon e Number [facility] [phone] LIVER PANEL(HEPATIC FUNCTION PANEL) (12/16/2012 7:33 AM CDT) [facility] Method Time Signature Alkaline 90 38 - [...] - 12/16/2012 12:42 PM CDT Performed at [facility], [address] [place] [phone] Alisha Kimball MD LAB_1 Performing Organization Address City/[facility] Phon e Number [facility] [phone] LIPID PANEL AND DIRECT LDL(IF NEEDED) (12/16/2012 7:33 AM CDT) [employer] Method Time Signature Hours Fasting 12 hours [...] - 12/16/2012 12:42 PM CDT Performed at [facility], [address] [place] [phone] Alisha Kimball MD LAB_1 Performing Organization Address City/State/ZIP Code Phon e Number [facility] [phone] documented in this encounter Visit Diagnoses Diagnosis [...] (LDH) documented in this encounter Care Teams Threading Machine Setter Relationship Specialty Start Date End Date Alisha Kimball MD PCP - General 07/08/05 [address] [place] [address] documented as of this encounter
--- OUTSIDE RECORDS SUMMARY | 2022-06-10 14:27 | XMS_ITS | Encounter Summary ---
:1955 Author Organization [employer] Address [address] [place] [address] Care Team Providers Name Role Phone Alisha Kimball MD Primary Care Provider Encounter Details Date Type Department Care Team Description 12/16/2012 Orders Only [facility] Diabetes mellitus type II (H [facility]); [address] Hypercholesterolemia; [place] [address] Elevated liver enzymes [phone] Social History Tobacco Use Types Packs/Day Years [...] 2:00 PM C DT Performed at [facility], [address] [place] [phone] Alisha Kimball MD LAB_1 Performing Organization Address City/[facility] Phon e Number [facility] [phone] LIVER PANEL(HEPATIC FUNCTION PANEL) (12/16/2012 7:33 AM CDT) [facility] Method Time Signature Alkaline 90 38 - [...] 12/16/2012 12:42 PM CDT Performed at [facility], [address] [place] [phone] Alisha Kimball MD LAB_1 Performing Organization Address City/[facility] Phon e Number [facility] [facility] [phone] LIPID PANEL AND DIRECT LDL(IF NEEDED) (12/16/2012 7:33 AM CDT) [employer] Method Time Signature Hours Fasting 12 hours [...] 12/16/2012 12:42 PM CDT Performed at [facility], [address] [place] [phone] Alisha Kimball MD LAB_1 Performing Organization Address City/State/ZIP Code Phon e Number [facility] [phone] documented in this encounter Visit Diagnoses Diagnosis Diabetes mellitus type II (HRC) Type II or unspecified type diabetes dinora litus without mention of complication, not stated as uncontrolled Hypercholesterolemia Pure hypercholesterolemia Elevated liver enzymes Nonspecific elevation of levels of trans aminase or lactic acid dehydrogenase (LDH) documented in this encounter Care Teams Supervisor Powder And Primer Canning Relationship Specialty Start Date End Date Alisha Kimball MD PCP - General 07/08/05 [address] [place], [place] [phone] documented as of this encounter
--- OUTSIDE RECORDS SUMMARY | 2022-06-10 14:27 | XMS_ITS | Encounter Summary ---
:1955 Author Organization [employer] Address [address] [place] [address] Care Team Providers Name Role Phone Alisha [...] (Pr imary Dx) Surgery [address] [place] [address] Social History Tobacco Use Types Packs/Day Years Used Date Smoking Tobacco: Never Alcohol Use Standard Drinks/Week Comments Not Asked 0 (1 standard drink = 0.6 oz pure alcoho l) Sex Assigned at Date Recorded Not on file documented as of this encounter Last Filed Vital Signs Vital Sign Reading Time Taken Comments Blood Pressure 98/58 05/26/2010 2:55 PM MICRO COMPUTER SPECIALIST Pulse 64 05/26/2010 2:55 PM MICRO COMPUTER SPECIALIST Temperature 36.4 ??C (97.5 ??F) 05/26/2010 2:55 PM MICRO COMPUTER SPECIALIST Respiratory Rate - - Oxygen Saturation - [...] and patient would like to continue with [id number] products. Discussed some general stretching and range of motion exercises, alsodiscussed shoewear and important features. She did not want to consider a cortisone injection at this time and will followup if her symptoms worsen. She will continue oral anti-inflammatory medication as tolerated and needed. All questions were answered. Travis Lanza DPM O COMPUTER SPECIALIST documented in this encounter Plan of Treatment Scheduled Referrals Name Type Priority Associated Diagnoses Order S chedule FOOT & ANKLE/PODIATRY Referral Routine Foot pain Ordere d: 04/28/2010 CONSULT-ADULT/PEDS documented as of this encounter Visit Diagnoses Diagnosis Osteoarthritis of foot joint - Primary Osteoarthrosis, unspecified whether gene ralized or localized, ankle and foot documented in this encounter Care Teams Toll Lineman Relationship Specialty Start Date End Date Alisha Kimball MD PCP - General 07/08/05 [address] [place] [address] documented as of this encounter
--- OUTSIDE RECORDS SUMMARY | 2022-06-10 14:27 | XMS_ITS | Encounter Summary ---
:1955 Author Organization [employer] Address [address], [place] [address] Care Team Providers Name Role Phone Alisha Kimball MD Primary Care Provider Reason for Visit Reason Comments ROUTINE HEALTH MAINTENANCE no pap today/ breast exam Encounter Details Date Type Department Care Team Description 10/26/2011 Office Visit [facility] Alisha Kimball, [facility] (Primary Dx); Practice MD Diabetes mellitus type II ([facility]); [address] Screening breast examination; [place] [address] [place] [address] Hypertension [phone] Social History Tobacco Use Types Packs/Day Years [...] associated with diabetes is greatly reduced. The [facility] Team is available to help you reach your goals. Diabetes is a disease requiring daily attention. For this reason, you are the most important person of the [facility] Team. Name: Loc Velasco Guideline Goal [...] a list of these classes, please visit [email or web address] and click on the Health and Wellness tab or call the appointment center at [phone] to register for a class. Depending on [...] ??? MULTIPLE VITAMIN OR None Entered ??? Bourbon-3 Fatty Acids (FISH OIL OR) ??? 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 Otherwise as above. ROS: A comprehensive review [...] hypertension documented in this encounter Care Teams Mandarin Chinese Teacher Relationship Specialty Start Date End Date Alisha Kimball MD PCP - General 07/08/05 [address] [place] [address] documented as of this encounter
--- OUTSIDE RECORDS SUMMARY | 2022-06-10 14:27 | XMS_ITS | Encounter Summary ---
:1955 Author Organization [facility] Address [address] [place] [address] Care Team Providers Name Role Phone Alisha Kimball MD Primary Care Provider Encounter Details Date Type Department Care Team Description 09/21/2011 Imaging [facility] ury Mammography [address] [place] [address] Social History Tobacco Use Types [...] filedocumented in this encounter Care Teams Water Mechanic Relationship Specialty Start Date End Date Alisha Kimball MD PCP - General 07/08/05 [address] [place] [address] documented as of this encounter
--- OUTSIDE RECORDS SUMMARY | 2022-06-10 14:27 | XMS_ITS | Encounter Summary ---
:1955 Author Organization [facility] Address [address], [place] [address] Care Team Providers Name Role Phone Alisha Kimball MD Primary Care Provider Reason for Visit Reason Comments BP CHECK,NURSE Encounter Details Date Type Department Care Team Description 11/09/2011 Nursing Visit [place] [facility] Kennel Operator/Cm/Maryjo, Simona Unspecifi ed essential Department Nursing hypertension (Primary [address] [place]) [place] [address] [place], [place] [phone] Social History Tobacco Use Types Packs/Day Years [...] hypertension documented in this encounter Care Teams Customer Service Operator Relationship Specialty Start Date End Date Alisha Kimball MD PCP - General 07/08/05 [address] [place] [address] documented as of this encounter
--- OUTSIDE RECORDS SUMMARY | 2022-06-10 14:27 | XMS_ITS | Encounter Summary ---
:1955 Author Organization [facility] Address [address] [address] Care Team Providers Name Role Phone Alisha Kimball MD Primary Care Provider Encounter Details Date Type Department Care Team Description 01/15/2013 Orders Only [facility] Alisha Kimball, Diabetes mellitus type Practice MD II (C) (Primary Dx) [address] [facility]. [address] [place] [address] [place] [address] [phone] Social History Tobacco Use Types Packs/Day Years [...] uncontrolled documented in this encounter Care Teams Cyber Legal Advisor Relationship Specialty Start Date End Date Alisha Kimball MD PCP - General 07/08/05 [address] [place], [place] [id number] documented as of this encounter
--- OUTSIDE RECORDS SUMMARY | 2022-06-10 14:27 | XMS_ITS | Encounter Summary ---
:1955 Author Organization [facility] Address [address] [address] Care Team Providers Name Role Phone Alisha Kimball MD Primary Care Provider Reason for Visit Reason Comments Refill Encounter Details Date Type Department Care Team Description 09/24/2013 Refill [facility] Alisha Kimball MD Refill [address] [facility]. [address] [place] [address] [place], [place] [phone] (Wo rk) Social History Tobacco Use Types [...] 5 MG tablet (Sent to [facility] POOL) - LIPID PANEL (12 HR. FASTING) for atorvastatin (AKA LIPITOR) 10 MG tablet (Sent to [employer] [facility] PO[facility]) Powered by [employer], Reference: [id number], 09/24/2013 8:49:09 PM CDT documented in this encounter Plan of Treatment Not on filedocumented as of this encounter Visit Diagnoses Diagnosis Pure hypercholesterolemia - Primary documented in this encounter Care Teams Bankruptcy Judge Relationship Specialty Start Date End Date Alisha Kimball MD PCP - General 07/08/05 [address] [place] [address] documented as of this encounter
--- OUTSIDE RECORDS SUMMARY | 2022-06-10 14:27 | XMS_ITS | Encounter Summary ---
:1955 Author Organization [facility] Address [address] [place] [address] Care Team Providers Name Role Phone Alisha Kimball MD Primary Care Provider Reason for Visit Reason Onset Date Comments LAB TESTS, NOS 09/22/2013 Encounter Details Date Type Department Care Team Description 09/22/2013 Telephone [facility] maxi Alisha Kimball MD LAB TESTS, NOS [address] [place] [address] [place] [address] [phone] (Wo rk) Social History Tobacco Use Types [...] this Telephone Encounter to the following pool: [facility]. Thank you documented in this [...] PM C DT Performed at [facility], [address] [place] [address] ??[phone] Alisha Kimball MD LAB_1 Performing Organization Address City/State/ZIP Code Phon e Number [facility] [phone] TSH, SENSITIVE with FT4, FT3 (if needed) (10/30/2013 7:37 AM CDT) athologist Signature TSH, with 1.465 0.300 - [facility] Reflex 5.000 [facility] uIU/ml Specimen Anatomical Collection Method Collection Time Receive d Time (Source) Location / / Volume Laterality 10/30/2013 7:37 AM 4 7:39 CDT AM CDT Narrative [facility] - 10/30/2013 2:45 PM C DT Performed at [facility], [address] [place] [address] ??[phone] Alisha Kimball MD LAB_1 Performing Organization Address City/State/ZIP Code Phon e Number [facility] [phone] SODIUM (10/30/2013 7:37 AM CDT) P athologist Signature Sodium 140 135 - 145 [facility] mmol/L Specimen Anatomical Collection Method Collection Time Receive d Time (Source) Location / / Volume Laterality 10/30/2013 7:37 AM 4 7:39 CDT AM CDT Narrative [facility] - 10/30/2013 2:04 PM C DT Performed at [facility], [address] [place] [address] ??[phone] Alisha Kimball MD LAB_1 Performing Organization Address City/[facility]/ZIP Code Phon e Number [facility] [phone] POTASSIUM (10/30/2013 7:37 AM CDT) athologist Signature Potassium 4.2 3.5 - 5.3 [facility] mmol/L Specimen Anatomical Collection Method Collection Time Receive d Time (Source) Location / / Volume Laterality 10/30/2013 7:37 AM 4 7:39 CDT AM CDT Narrative [facility] - 10/30/2013 2:04 PM C DT Performed at [facility], [address] [place] [address] ??[id number] Alisha Kimball MD LAB_1 Performing Organization Address City/[facility]/ZIP Code Phon e Number [facility] [phone] ALT (SGPT) (10/30/2013 7:37 AM CDT) athologist Signature ALT (SGPT) 52 0 - 69 U/L [facility] Specimen Anatomical Collection Method Collection Time Receive d Time (Source) Location / / Volume Laterality 10/30/2013 7:37 AM 4 7:39 CDT AM CDT Narrative [facility] - 10/30/2013 2:04 PM C DT Performed at [facility], [address] [place] [address] ??[phone] Alisha Kimball MD LAB_1 Performing Organization Address City/State/ZIP Code Phon e Number [facility] [phone] MICROALB/CREAT RATIO (10/30/2013 7:37 AM CDT) [facility] Method Time Signature Albumin, 0.6 mg/dl [facility] [...] PM C DT Performed at [facility], [address] [place] [address] ??[address] Alisha Kimball MD LAB_1 Performing Organization Address [facility]/ZIP Code Phon e Number [facility] [phone] CREATININE / GFR (10/30/2013 7:37 AM CDT) [facility] Signature Creatinine 0.73 0.52 - [facility] 1.04 mg/dl [facility]ATOR[facility] GFR, Estimated >60.0 >60 [facility] ml/min/1.7 [facility] 3m2 GFR, Est., If >60.0 >60 [facility] ml/min/1.7 LAB[facility]ATORIES 3m2 Specimen Anatomical Collection Method Collection Time Receive d Time (Source) Location / / Volume Laterality 10/30/2013 7:37 AM 201 4 7:39 CDT AM CDT Narrative [facility] - 10/30/2013 2:04 PM C DT Performed at [facility], [address] [place] [address] ??[phone] Alisha Kimball MD LAB_1 Performing Organization Address City/State/ZIP Code Phon e Number [facility] [phone] (ABNORMAL) LIPID PANEL AND DIRECT LDL(IF NEEDED) (10/30/2013 7:37 AM CDT) [facility] Method Time Signature Hours Fasting 12 [...] PM C DT Performed at [facility], [address] [place] [address] ??[phone] Alisha Kimball MD LAB_1 Performing Organization Address [facility] Phon e Number [facility] [phone] (ABNORMAL) HGB A1C (10/30/2013 7:37 AM CDT) [...] PM C DT Performed at [facility], [address] [place] [address] ??[address] Alisha Kimball MD LAB_1 Performing Organization Address City/[facility] Phon e Number [facility] [phone] documented in this encounter Visit Diagnoses Diagnosis [...] anemia documented in this encounter Care Teams Multimedia Designer Relationship Specialty Start Date End Date Alisha Kimball MD PCP - General 07/08/05 [address] [place] [address] documented as of this encounter
--- OUTSIDE RECORDS SUMMARY | 2022-06-10 14:27 | XMS_ITS | Encounter Summary ---
:1955 Author Organization [facility] Address [address] [place] [address] Care Team Providers Name Role Phone Alisha Kimball MD Primary Care Provider Encounter Details Date Type Department Care Team Description 04/28/2010 Imaging [place] [facility] Foot pain [address] [place] [address] Social History Tobacco Use Types [...] limb documented in this encounter Care Teams Mat Linker Relationship Specialty Start Date End Date lAisha Kimball MD PCP - General 07/08/05 [address] [place] [address] documented as of this encounter
--- OUTSIDE RECORDS SUMMARY | 2022-06-10 14:27 | XMS_ITS | Encounter Summary ---
:1955 Author Organization [facility] Address [address] [place] [address] Care Team Providers Name Role Phone Alisha Kimball MD Primary Care Provider Reason for Visit Reason Onset Date Comments PHARMACIST COUNSELING 07/07/2013 diabetes Encounter Details Date Type Department Care Team Description 07/07/2013 Pharmacy [facility], Tesha, PHARMACIS T COUNSELING Pharmacy PharmD (diabetes) [address] [facility]. [address] [place] [address] [facility] [phone] [place], [place] [address] (Wo rk) Social History [...] on filedocumented in this encounter Care Teams Vessel Captain Relationship Specialty Start Date End Date Alisha Kimball MD PCP - General 07/08/05 [address] [place], [place] [phone] documented as of this encounter
--- OUTSIDE RECORDS SUMMARY | 2022-06-10 14:27 | XMS_ITS | Encounter Summary ---
:1955 Author Organization [facility] Address [address] [place] [address] Care Team Providers Name Role Phone Alisha Kimball MD Primary Care Provider Encounter Details Date Type Department Care Team Description 05/14/2010 Orders Only [facility] Hyperglycemia [address] [place] [address] Social History Tobacco Use Types [...] 05/14/2010 7:35 AM Hyperglycemia Results for this CANCELLATION CLERK procedure are i n the results section. GLUCOSE - FASTING > Routine 05/14/2010 7:35 AM Hyperglycemia R esults for this 8 HRS FASTING CANCELLATION CLERK procedure are in the results section. documented in this encounter Results (ABNORMAL) GLUCOSE - FASTING > 8 HRS FASTING (V77.1) (05/14/2010 7:35 AM CANCELLATION CLERK) [facility] Method Time Signature Glucose 106 (H) 70 - 100 [facility] mg/dl Hours Fasting 12 hours [facility] Specimen Anatomical Collection Method Collection Time Receive d Time (Source) Location / / Volume Laterality 05/14/2010 7:35 AM 0 7:46 CANCELLATION CLERK AM CANCELLATION CLERK Alisha Kimball MD LAB_1 Performing Organization Address City/State/ZIP Code Phon e Number [facility] [phone] [address] (ABNORMAL) HGB A1C (05/14/2010 7:35 AM CANCELLATION CLERK) athologist Signature Hgb A1c 7.4 (H) 4.3 - 6.1 % [facility] Comment: The usual A1C goal for people with diabe jaci, age 18-75, is < 7.0%. Physicians may recommend a higher or lo wer goal for specific individuals. Specimen Anatomical Collection Method Collection Time Receive d Time (Source) Location / / Volume Laterality 05/14/2010 7:35 AM 0 7:46 CANCELLATION CLERK AM CANCELLATION CLERK Alisha Kimball MD LAB_1 Performing Organization Address City/State/ZIP Code Phon e Number [facility] [phone] [address] documented in this encounter Visit Diagnoses Diagnosis Hyperglycemia Other abnormal glucose documented in this encounter Care Teams Project Intern Relationship Specialty Start Date End Date Alisha Kimball MD PCP - General 07/08/05 [address] [place] [address] documented as of this encounter
--- OUTSIDE RECORDS SUMMARY | 2022-06-10 14:27 | XMS_ITS | Encounter Summary ---
:1955 Author Organization [facility] Address [address] [place] [address] Care Team Providers Name Role Phone Alisha Kimball MD Primary Care Provider Reason for Visit Reason Onset Date Comments LAB TESTS, NOS 10/26/2011 Encounter Details Date Type Department Care Team Description 10/26/2011 Telephone [facility] Alisha Steinberg MD LAB TESTS, NOS [address] [place] [address] [place] [address] [phone] (Wo rk) Social History Tobacco Use Types [...] we do not have the appropriate sample. [facility]. documented in this encounter Plan of Treatment Not on filedocumented as of this encounter Visit Diagnoses Not on filedocumented in this encounter Care Teams Website/Blog Editor Relationship Specialty Start Date End Date Alisha Kimball MD PCP - General 07/08/05 [address] [place] [address] documented as of this encounter
--- OUTSIDE RECORDS SUMMARY | 2022-06-10 14:27 | XMS_ITS | Encounter Summary ---
:1955 Author Organization [employer] Address [address] [place] [address] Care Team Providers Name Role Phone Alisha Kimball MD Primary Care Provider Reason for Visit Reason Comments LAB RESULTS A1C, lipids Encounter Details Date Type Department Care Team Description 12/16/2012 Telephone [facility] Alisha Kimball MD LAB RESULTS (A1C, Practice [address] lipids) [address] [place] [address] [place] [address] [phone] Social History Tobacco Use Types Packs/Day Years [...] - 01/13/2013 12:39 PM CDT Performed at [facility], [address], [place], [place] ??[address] Alisha Kimball MD LAB_1 Performing Organization Address City/State/ZIP Code Phon e Number [facility] [phone] documented in this encounter Visit Diagnoses Diagnosis Diabetes mellitus type II ([facility]C) - Primar y Type II or unspecified type diabetes dinora litus without mention of complication, not stated as uncontrolled Diabetes mellitus type II (HRC) Type II or unspecified type diabetes dinora litus without mention of complication, not stated as uncontrolled documented in this encounter Care Teams Pr Specialist Relationship Specialty Start Date End Date Alisha Kimball MD PCP - General 07/08/05 [address] [place] [address] documented as of this encounter
--- OUTSIDE RECORDS SUMMARY | 2022-06-10 14:27 | XMS_ITS | Encounter Summary ---
:1955 Author Organization [facility] Address [address], [place] [address] Care Team Providers Name Role Phone Alisha Kimball MD Primary Care Provider Reason for Visit Reason Onset Date Comments PHARMACIST COUNSELING 01/02/2013 diabetes Encounter Details Date Type Department Care Team Description 01/02/2013 Pharmacy [facility] Daria Galvez PHARMAC IST COUNSELING Pharmacy PharmD (diabetes) [address] [facility]. [address] [place] [address] [place], [place] [phone] (Wo rk) Social History Tobacco Use Types [...] on filedocumented in this encounter Care Teams Welder Setter Electron Beam Machine Relationship Specialty Start Date End Date Alisha Kimball MD PCP - General 07/08/05 [address] [place], [place] [address] documented as of this encounter
--- OUTSIDE RECORDS SUMMARY | 2022-06-10 14:27 | XMS_ITS | Encounter Summary ---
:1955 Author Organization [employer] Address [address], [place] [address] Care Team Providers Name Role Phone Alisha Kimball MD Primary Care Provider Reason for Visit Reason Comments DIABETES EDUCATION Encounter Details Date Type Department Care Team Description 07/08/2010 Office Visit [facility] Janiya Naqvi Diabfortunato es mellitus type Program Meghann RN, CDE II ([facility]) (Primary Dx) [address] [place] [address] Social History Tobacco Use Types Packs/Day Years [...] (180 lb 9.6 oz) 07/08/2010 4:50 PM DENSITOMETRIST Height - - Body Mass Index 30.76 04/28/2010 8:10 AM CDT documented in this encounter Progress Notes Janiya Naqvi RN, CDE - 07/08/2010 6:08 PM CST SUBJECTIVE Loc Velasco is referred by standing order for Diabetes Education. Accompanied by: unaccompanied Changes since last encounter: diet: eating smaller portions, no sweets, had some higher sugars over the [employer] weekend(no sweets, just too many carbs(dips, crackers,etc) Exercise: brisk walk(~1 mile)3 times/wk in the [facility] with friends before work, plans to join [employer] medication(s): none hypoglycemia: none monitoring blood sugars: [...] program Appointments to be scheduled (Appointment center [phone]): Diabetes classes: is registered to attend 09/2010 Dietitian:is scheduled to see Viki Palm on 07/29/10 for consultation Diabetes Nurse Specialist: see 4-6 weeks post DM classes Time spent with the patient: 60 minutes for diabetes education and counseling. Janiya Naqvi RN, CDE 07/08/2010, 5:33 PM ITOMETRIST documented in this encounter Plan of Treatment Not on filedocumented as of this encounter Visit Diagnoses Diagnosis Diabetes mellitus type II (HRC) - Primar y Type II or unspecified type diabetes dinora litus without mention of complication, not stated as uncontrolled documented in this encounter Care Teams Curriculum And Instruction Director Relationship Specialty Start Date End Date Alisha Kimball MD PCP - General 07/08/05 [address] [place] [address] documented as of this encounter
--- OUTSIDE RECORDS SUMMARY | 2022-06-10 14:27 | XMS_ITS | Encounter Summary ---
:1955 Author Organization [facility] Address [address] [place] [address] Care Team Providers Name Role Phone Alisha Kimball MD Primary Care Provider Encounter Details Date Type Department Care Team Description 05/15/2010 Imaging [facility] 401 Fami ly history of Bone Density osteoporosis [address] [place] [address] Social History Tobacco Use Types [...] Family history of Results for this SPINE/HIP CONTENT PRODUCTION SPECIALIST osteoporosis procedure are i n the results section. documented in this encounter Results DEXA BONE DENSITY SPINE/HIP ROUTINE (05/15/2010 7:58 AM CONTENT PRODUCTION SPECIALIST) Anatomical Region Laterality Modality Lower Extremity, Spine, Hip, L-Spine Oth er Specimen (Source) Anatomical Location Collection Method / Collectio n Time Received Time / Laterality Volume Narrative 05/15/2010 8:11 AM CONTENT PRODUCTION SPECIALIST WHO Criteria for the diagnosis of osteoporosis: T-score >-1 Normal T-score between -1 and -2.5 Osteopenia T-score <-2.5 Osteoporosis Fracture risk: T-score -1 ?? 2 times increased ?-2 ?? 4 times incre ased ?-3 ?? 6 times incre ased *With previous fragility fracture, risk of subsequent fracture doubles again SCREENING FOR OSTEO, HOLD CALCIUM Through Operator and Model of Instrument: Gasngo Demographics Age: 55 yr Gender: female Height [...] Alcohol 3units or more per day (on [place] [employer]):No Currently smoking:No If no, smoked for more [...] doubles again SCREENING FOR OSTEO, HOLD CALCIUM Through Operator and Model of Instrument: Gasngo Demographics Age: 55 yr Gender: female Height [...] Alcohol 3units or more per day (on [place] [employer]):No Currently smoking:No If no, smoked for more [...] osteoporosis documented in this encounter Care Teams Endless Bed Drum Sander Relationship Specialty Start Date End Date Alisha Kimball MD PCP - General 07/08/[address] [place] [address] documented as of this encounter
--- OUTSIDE RECORDS SUMMARY | 2022-06-10 14:27 | XMS_ITS | Encounter Summary ---
:1955 Author Organization [facility] Address [address] [place] [address] Care Team Providers Name Role Phone Alisha Kimball MD Primary Care Provider Encounter Details Date Type Department Care Team Description 10/24/2011 [address] [facility] Diabetes mellitus type II [address] (HRC) [place] [address] Social History Tobacco Use Types [...] A1c 8.1 (H) 4.3 - 6.1 % [facility] Comment: The usual A1C goal [...] Address City/State/ZIP Code Phon e Number [facility] [phone] [facility] [address] [address] documented in this encounter Visit Diagnoses Diagnosis Diabetes mellitus type II (HRC) Type II or unspecified type diabetes dinora litus without mention of complication, not stated as uncontrolled documented in this encounter Care Teams Plaster Model And Mold Maker Relationship Specialty Start Date End Date Alisha Kimball MD PCP - General 07/08/05 [address] [place] [address] documented as of this encounter
--- OUTSIDE RECORDS SUMMARY | 2022-06-10 14:27 | XMS_ITS | Encounter Summary ---
:1955 Author Organization [facility] Address [address] [address] Care Team Providers Name Role Phone Alisha Kimball MD Primary Care Provider Reason for Visit Reason Onset Date Comments DIABETES EDUCATION 09/26/2010 Encounter Details Date Type Department Care Team Description 09/24/2010 Office Visit [place] [facility] Diabetes u ncomplicated Program adult-type II (Primary Dx) [address] [place] [address] Social History Tobacco Use Types [...] diabetes class series Diabetes -PuttingYourself In The Horticultural Worker's Seat using conversation maps. Referring provider: Alisha [...] uncontrolled documented in this encounter Care Teams Office Mail Clerk Relationship Specialty Start Date End Date Alisha Kimball MD PCP - General 07/08/05 [address] [place] [address] documented as of this encounter
--- OUTSIDE RECORDS SUMMARY | 2022-06-10 14:27 | XMS_ITS | Encounter Summary ---
:1955 Author Organization [facility] Address [address] [place] [address] Care Team Providers Name Role Phone Alisha Kimball MD Primary Care Provider Reason for Visit Reason Onset Date Comments QUESTIONS, GENERAL 11/04/2011 Encounter Details Date Type Department Care Team Description 11/04/2011 Telephone [facility] maxi Alisha Kimball MD QUESTIONS, GENERAL [address] [place] [address] [place], [place] [phone] (Wo rk) Social History Tobacco Use Types Packs/Day Years Used Date Smoking Tobacco: Never Alcohol Use Standard Drinks/Week Comments No 0 (1 standard drink = 0.6 oz pure alcoho l) Sex Assigned at Date Recorded Not on file documented as of this encounter Nursing Notes Francesca Cho CMA - 11/04/2011 9:45 AM CDT Patient informed and agree's with plan. I sent her to [facility] to schedule with procedure nurse. TOT [...] on filedocumented in this encounter Care Teams Bedspread Folder Relationship Specialty Start Date End Date Alisha Kimball MD PCP - General 07/08/05 [address] [place] [address] documented as of this encounter
--- OUTSIDE RECORDS SUMMARY | 2022-06-10 14:27 | XMS_ITS | Encounter Summary ---
:1955 Author Organization [facility] Address [address], [place] [address] Care Team Providers Name Role Phone Alisha Kimball MD Primary Care Provider Reason for Visit Reason Comments FOLLOW-UP,DIABETES Encounter Details Date Type Department Care Team Description 10/31/2012 Telephone [facility] maxi Alisha Kimball MD FOLLOW-UP,DIABETES [address] [place] [address] [place] [address] [phone] (Wo rk) Social History Tobacco Use Types [...] on filedocumented in this encounter Care Teams Part Time Relationship Specialty Start Date End Date Alisha Kimball MD PCP - General 07/08/05 [address] [place] [address] documented as of this encounter
--- OUTSIDE RECORDS SUMMARY | 2022-06-10 14:27 | XMS_ITS | Encounter Summary ---
:1955 Author Organization [facility] Address [address], [place] [address] Care Team Providers Name Role Phone Alisha Kimball MD Primary Care Provider Reason for Visit Reason Onset Date Comments Blood Glucose Readings 11/15/2012 Encounter Details Date Type Department Care Team Description 11/15/2012 Telephone [facility] Alisha Kimball MD Blood Glucose Readings Practice [address] [place] [address] [place] [address] [phone] Social History Tobacco Use Types Packs/Day Years [...] 123 11/11/12- 5:30am 142 11/12/12- 6:30am 152 5- 6:30am 168 11/14/12- 5:00pm 107 documented in this encounter Plan of Treatment Not on filedocumented as of this encounter Visit Diagnoses Not on filedocumented in this encounter Care Teams Catering Server Relationship Specialty Start Date End Date Alisha Kimball MD PCP - General 07/08/05 [address] [place] [address] documented as of this encounter
--- OUTSIDE RECORDS SUMMARY | 2022-06-10 14:27 | XMS_ITS | Encounter Summary ---
:1955 Author Organization [facility] Address [address] [place] [address] Care Team Providers Name Role Phone Alisha Kimball MD Primary Care Provider Encounter Details Date Type Department Care Team Description 01/13/2013 Orders Only [facility] Diabetes mellitus type II [address] (HRC) [place] [address] Social History Tobacco Use Types [...] AM 3 7:38 CDT AM CDT Narrative [facility] - 01/13/2013 12:39 PM CDT Performed at [facility], [address] [place] [address] ??[id number] Alisha Kimball MD LAB_1 Performing Organization Address [facility] Phon e Number [facility] [phone] (ABNORMAL) HGB A1C (01/13/2013 7:33 AM CDT) [...] AM 3 7:38 CDT AM CDT Narrative [facility] - 01/13/2013 3:07 PM C DT Performed at [facility], [address] [place] [address] ??[phone] Alisha Kimball MD LAB_1 Performing Organization Address [facility] e Number [facility] [phone] documented in this encounter Visit Diagnoses Diagnosis Diabetes mellitus type II ([facility]) Type II or unspecified type diabetes dinora litus without mention of complication, not stated as uncontrolled documented in this encounter Care Teams Car Cleaning Supervisor Relationship Specialty Start Date End Date Alisha Kimball MD PCP - General 07/08/05 [address] [place] [address] documented as of this encounter
--- OUTSIDE RECORDS SUMMARY | 2022-06-10 14:27 | XMS_ITS | Encounter Summary ---
:1955 Author Organization [facility] Address [address] [place] [address] Care Team Providers Name Role Phone Alisha Kimball MD Primary Care Provider Reason for Referral Specialty Diagnoses / Procedures Referred By Contact Refer red To Contact Alisha Kimball MD [address] [place] [address] Referral ID Status Reason Start Date Expiration Date Visits Requ ested Visits Authorized Scheduling Instructions . AL WORKER Specialty Diagnoses / Procedures Referred By Contact Refer red To Contact Alisha Kimball MD [address] [place] [address] Referral ID Status Reason Start Date Expiration [...] call the number on your insurance card. AL WORKER Specialty Diagnoses / Procedures Referred By Contact Refer red To Contact Alisha Kimball MD [address] [place] [address] Referral ID Status Reason Start Date Expiration [...] call the number on your insurance card. AL WORKER Reason for Visit Reason Comments LAB RESULTS glucose and A1C Encounter Details Date Type Department Care Team Description 05/14/2010 Telephone [facility] Alisha Kimball MD LAB RESULTS (glucose Practice [address] and A1C) [address] [place] [address] [place], [place] [id number] [phone] Social History Tobacco Use Types Packs/Day Years Used Date Smoking Tobacco: Never Alcohol Use Standard Drinks/Week Comments Not Asked 0 (1 standard drink = 0.6 oz pure alcoho l) Sex Assigned at Date Recorded Not on file documented as of this encounter Nursing Notes Francesca Cho CMA - 05/15/2010 3:35 PM CST Loc was notified. Francesca Cho AL WORKER [place] [facility] - 05/15/2010 2:52 PM CST Patient is returning nurse's call AL WORKER Francesca Cho CMA - 05/15/2010 9:00 AM CST [facility] Francesca Cho AL WORKER Alisha Kimball - 05/14/2010 6:49 PM CST Please call Melia. Her glucose is better, but not normal. Her A1C suggests higher glucoses over the past 3 months, so she has diabetes. Should see clinical educator and home attendant to learn glucose monitoring. See orders. Thanks! Alisha Kimball MD AL WORKER documented in this encounter Plan of Treatment Scheduled Referrals Name Type Priority Associated Diagnoses Order S chedule DIABETES ED CLASSES Referral Routine Diabetes mellitus typ e Ordered: 05/14/2010 II ([facility]) DIABETES ED DIETITIAN Referral Routine Diabetes mellitus t ype Ordered: 05/14/2010 VISIT II ([facility]) DIABETES ED NURSE VISIT Referral Routine Diabetes mellitus type Ordered: 05/14/2010 II ([facility]) documented as of this encounter Visit Diagnoses Diagnosis Diabetes mellitus type II ([facility]) - Primar y Type II or unspecified type diabetes dinora litus without mention of complication, not stated as uncontrolled documented in this encounter Care Teams Fashion Intern Relationship Specialty Start Date End Date Alisha Kimball MD PCP - General 07/08/05 [address] [place] [address] documented as of this encounter
--- OUTSIDE RECORDS SUMMARY | 2022-06-10 14:27 | XMS_ITS | Encounter Summary ---
:1955 Author Organization [facility] Address [address] [place] [address] Care Team Providers Name Role Phone Alisha Kimball MD Primary Care Provider Reason for Visit Reason Comments DIABETES EDUCATION Encounter Details Date Type Department Care Team Description 06/05/2010 Office Visit [facility] Janiya Naqvi Diabet es mellitus type Program Meghann RN, CDE II ([facility]) (Primary Dx) [address] [place] [address] Social History Tobacco Use Types Packs/Day Years Used Date Smoking Tobacco: Never Alcohol Use Standard Drinks/Week Comments Not Asked 0 (1 standard drink = 0.6 oz pure alcoho l) Sex Assigned at Date Recorded Not on file documented as of this encounter Patient Instructions Patient InstructionsJaniya Naqvi RN, CDE - 06/05/2010 5:22 PM STORAGE BATTERY TESTER 1. Test blood sugar 1-2 times daily--before meals or 2 hours after a meal 2. Attend diabetes classes in 2-3 months 3. See Camille diabetes nurse on Wednesday at 430PM 4. Schedule appointment to see dietitian AGE BATTERY TESTER documented in this encounter Progress Notes Janiya Naqvi RN, CDE - 06/05/2010 5:15 PM CST SUBJECTIVE oLc Velasco is referred by Dr.Karen Kimball([facility]) for Diabetes Education. Accompanied by: unaccompanied, prefers [...] days per wk and plans to join [employer] Diet/Eating Habits: eats 3 meals /day, has [...] meal Appointments to be scheduled (Appointment center [phone]): 1. Attend diabetes classes in 2-3 months 2. See Camille diabetes nurse on Wednesday at 430PM Time spent with the patient: 60 minutes for diabetes education and counseling. Janiya Naqvi, RN, CDE 06/05/2010, 4:35 PM AGE BATTERY TESTER documented in this encounter Plan of Treatment Not on filedocumented as of this encounter Visit Diagnoses Diagnosis Diabetes mellitus type II ([facility]) - Primar y Type II or unspecified type diabetes dinora litus without mention of complication, not stated as uncontrolled documented in this encounter Care Teams Chip Drier Relationship Specialty Start Date End Date Alisha Kimball MD PCP - General 07/08/[address] [place] [address] documented as of this encounter
--- OUTSIDE RECORDS SUMMARY | 2022-06-10 14:27 | XMS_ITS | Encounter Summary ---
:1955 Author Organization [facility] Address [address] [address] Care Team Providers Name Role Phone Alisha Kimball MD Primary Care Provider Reason for Visit Reason Comments ROUTINE HEALTH MAINTENANCE eyes are burning/ ears itch y for a while/ refill bp med/ check varicose veins are itc hy/ pap/ breast exam Encounter Details Date Type Department Care Team Description 10/24/2012 Office Visit [facility] Alisha Kimball, [facility] (Primary Dx); Practice MD Screening breast examination; [address] Breast cancer screening; [place] [address] [place] [address] Diabetes mellitus type II (HRC); [phone] Hypertension; (Work) Dry eyes; Varicose veins of [...] associated with diabetes is greatly reduced. The [facility] is available to help you reach your goals. Diabetes is a disease requiring daily attention. For this reason, you are the most important person of the [facility] Team. Name: Loc Velasco Guideline Goal [...] a list of these classes, please visit [email or web address] and click on the Health and Wellness tab or call the appointment center at [phone] to register for a class. Depending on [...] your eyes. Do not rub your eyes. Gfqz-kqd-ichdrfb artificial tears may help you when you [...] Where can you learn more? Go to [employer] and enter [id number] in the search box. Last Revised: September 19, 2010 ?? [id number] [employer], [employer]. documented in this encounter Progress Notes Alisha [...] The patient is and works for the [employer]. Otherwise as above. ROS: A comprehensive review of systems was done today and was significant for a few concerns. 1. Not checking glucoses. Has lost some weight. 2. Bilateral itchy, watery, red eyes for months. No eye pain or vision changes. No discharge. No history of allergic rhinitis. Using Visine ldxu-ysm-lbzfkix and seems to help, but needs to [...] Symptomatic varicose veins. She will schedule with [facility]. Phone number supplied. Alisha Kimball [...] (ABNORMAL) HGB A1C (10/24/2012 9:45 AM CDT) athologist Signature Hgb A1c 10.5 (H) 4.3 [...] MD LAB_1 Performing Organization Address [facility] e Number [employer] [phone] [phone] CREATININE / GFR (10/24/2012 9:45 AM CDT) Analysis Performed At [facility] Time Signature Creatinine 0.68 0.52 - [facility] 1.04 mg/dl GFR, Estimated >60.0 >60 [facility] ml/min/1.7 3m2 GFR, Est., If >60.0 >60 [facility] Black ml/min/1.7 3m2 Specimen Anatomical Collection Method Collection Time Receive d Time (Source) Location / / Volume Laterality 10/24/2012 9:45 AM 3 9:52 CDT AM CDT Alisha Kimball MD LAB_1 Performing Organization Address [facility] e Number [facility] [phone] [phone] (ABNORMAL) ALT (SGPT) (10/24/2012 9:45 AM CDT) athologist Signature ALT (SGPT) 72 (H) 0 - 69 U/L [facility] Specimen Anatomical Collection Method Collection Time Receive d Time (Source) Location / / Volume Laterality 10/24/2012 9:45 AM 3 9:52 CDT AM CDT Alisha Kimball MD LAB_1 Performing Organization Address [facility] Phon e Number [facility] [employer] [phone] [phone] (ABNORMAL) LIPID PANEL AND DIRECT LDL(IF NEEDED) (10/24/2012 9:45 AM CDT) [facility] Method Time Signature Cholesterol 242 (H) 0 - 199 [facility] mg/dl Triglyceride 242 (H) 0 - 149 [facility] mg/dl HDL 43 >40 mg/dl [facility] LDL, Calc. 151 (H) 0 - 129 [facility] mg/dl Non HDL Chol, 199 mg/dl [facility] Calc Hours Fasting 14 hours [facility] Specimen Anatomical Collection Method Collection Time Receive d Time (Source) Location / / Volume Laterality 10/24/2012 9:45 AM 3 9:52 CDT AM CDT Alisha Kimball MD LAB_1 Performing Organization Address [facility] Phon e Number [facility] [phone] [phone] documented in this encounter Visit Diagnoses Diagnosis [...] complications documented in this encounter Care Teams Lap Cutter Truer Operator Relationship Specialty Start Date End Date Alisha Kimball MD PCP - General 07/08/05 [address] [place] [address] documented as of this encounter
--- OUTSIDE RECORDS SUMMARY | 2022-06-10 14:27 | XMS_ITS | Encounter Summary ---
:1955 Author Organization [facility] Address [address] [place] [address] Care Team Providers Name Role Phone Alisha Kimball MD Primary Care Provider Reason for Visit Reason Comments Nutrition Counseling Encounter Details Date Type Department Care Team Description 07/29/2010 Office Visit [facility] Meaghan Palm, Diab etes mellitus type Clinic RD, LD II ([facility]) (Primary Dx) [address] [place] [address] Social History Tobacco Use Types [...] who is following similar eating habits. 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 Changes since dx: eating smaller portions, no sweets, Large amount of vegetables and protein in diet Exercise: brisk walk(~1 mile)3 times/wk in the [facility] with friends before work, thinking about to [...] once a week. Snack - lite yogurt, [email or web address] bar or Glucerna Dinner @ around 5-5:30 [...] of controlled carb meal plan. Calorie Intake. [phone] calories with 15-30 grams of carb per [...] 07/29/2010 60 minutes in education and counseling FARMER documented in this encounter Plan of Treatment Not on filedocumented as of this encounter Visit Diagnoses Diagnosis Diabetes mellitus type II ([facility]) - Primar y Type II or unspecified type diabetes dinora litus without mention of complication, not stated as uncontrolled documented in this encounter Care Teams Bobtailer Relationship Specialty Start Date End Date Alisha Kimball MD PCP - General 07/08/05 [address] [place] [address] documented as of this encounter
--- OUTSIDE RECORDS SUMMARY | 2022-06-10 14:27 | XMS_ITS | Encounter Summary ---
:1955 Author Organization [facility] Address [address] [place] [address] Care Team Providers Name Role Phone Alisha Kimball MD Primary Care Provider Reason for Visit Reason Onset Date Comments Pharmacy 12/16/2012 diabetes Encounter Details Date Type Department Care Team Description 12/16/2012 Pharmacy [facility], Pharmacy (diabetes) [address] [facility] [place] [address] [address] [facility] [phone] [place], [place] [address] (Wo rk) Social History [...] on filedocumented in this encounter Care Teams Video Camera Operator Relationship Specialty Start Date End Date Alisha Kimball MD PCP - General 07/08/05 [address] [place], [place] [id number] documented as of this encounter
--- OUTSIDE RECORDS SUMMARY | 2022-06-10 14:28 | XMS_ITS | Encounter Summary ---
:1955 Author Organization [facility] Address [address], [place] [address] Care Team Providers Name Role Phone Alisha Kimball MD Primary Care Provider Encounter Details Date Type Department Care Team Description 12/13/2007 [facility] Visit [facility] Kiah August H, OTR/L Mallet Finger (Primary [address] Dx) [address] [place] [phone] Social History Tobacco Use Types Packs/Day Years Used Date Smoking Tobacco: Never Alcohol Use Standard Drinks/Week Comments Not Asked 0 (1 standard drink = 0.6 oz pure alcoho l) Sex Assigned at Date Recorded Not on file documented as of this encounter Progress Notes Kiah August H - 12/13/2007 9:27 AM CDT HAND OCCUPATIONAL THERAPY DAILY/PROGRESS NOTE 12/13/2007 Patient Name: Loc Velasco [id number] Payor: SELF [id number] Plan: SELF INSURED Product Type: *No Product [...] Active ROM, Passive ROM, Strengthening and Check indigo mixer/3pt. Pinch strength. Will continue to see pt. 1x/week for next 6 weeks. MINUTES SEEN: 30 Treatment Charges: Physical Agent Modalities: Fluidotherapy / whirlpool Treatment: Therapeutic Exercises: Quantity: 1 Kiah Beal,SHIRLEYR/L documented in this encounter Plan of Treatment Not on filedocumented as of this encounter Visit Diagnoses Diagnosis Mallet finger - Primary documented in this encounter Care Teams Remote Sensing Program Manager Relationship Specialty Start Date End Date Alisha Kimball MD PCP - General 07/08/05 [address] [place] [address] documented as of this encounter
--- OUTSIDE RECORDS SUMMARY | 2022-06-10 14:28 | XMS_ITS | Encounter Summary ---
:1955 Author Organization [facility] Address [address] [place] [address] Care Team Providers Name Role Phone Alisha Kimball MD Primary Care Provider Encounter Details Date Type Department Care Team Description 11/10/2007 Office Visit [facility] Kiah August H, OTR/L Mallet Finger (Primary [address] Dx) [address] [place] [phone] Social History Tobacco Use Types Packs/Day Years Used Date Smoking Tobacco: Never Alcohol Use Standard Drinks/Week Comments Not Asked 0 (1 standard drink = 0.6 oz pure alcoho l) Sex Assigned at Date Recorded Not on file documented as of this encounter Progress Notes Kiah August H - 11/10/2007 3:36 PM CDT HAND OCCUPATIONAL THERAPY DAILY NOTE 11/10/2007 Patient Name: Loc Velasco [id number] Payor: SELF [id number] Plan: SELF INSURED Product Type: *No Product [...] in this encounter Care Teams Director Of Sleep Relationship Specialty Start Date End Date Alisha Kimball MD PCP - General 07/08/05 [address] [place] [address] documented as of this encounter
--- OUTSIDE RECORDS SUMMARY | 2022-06-10 14:28 | XMS_ITS | Encounter Summary ---
:1955 Author Organization [facility] Address [address] [place] [address] Care Team Providers Name Role Phone Alisha Kimball MD Primary Care Provider Encounter Details Date Type Department Care Team Description 11/17/2007 Office Visit [facility] Kiah August H, OTR/L Mallet Finger (Primary [address] Dx) [address] [place] [phone] Social History Tobacco Use Types Packs/Day Years Used Date Smoking Tobacco: Never Alcohol Use Standard Drinks/Week Comments Not Asked 0 (1 standard drink = 0.6 oz pure alcoho l) Sex Assigned at Date Recorded Not on file documented as of this encounter Progress Notes Kiah August H - 11/17/2007 3:59 PM CDT HAND OCCUPATIONAL THERAPY DAILY NOTE 11/17/2007 Patient Name: Loc Velasco [id number] Payor: SELF [id number] Plan: SELF INSURED Product Type: *No Product [...] Primary documented in this encounter Care Teams Him Coder Relationship Specialty Start Date End Date Alisha Kimball MD PCP - General 07/08/05 [address] [place] [address] documented as of this encounter
--- OUTSIDE RECORDS SUMMARY | 2022-06-10 14:28 | XMS_ITS | Encounter Summary ---
:1955 Author Organization [facility] Address [address] [address] Care Team Providers Name Role Phone Alisha Kimball MD Primary Care Provider Encounter Details Date Type Department Care Team Description 01/02/2008 Office Visit [facility] Kiah August H, OTR/L Mallet Finger (Primary [address] Dx) [address] [place] [phone] Social History Tobacco Use Types Packs/Day Years Used Date Smoking Tobacco: Never Alcohol Use Standard Drinks/Week Comments Not Asked 0 (1 standard drink = 0.6 oz pure alcoho l) Sex Assigned at Date Recorded Not on file documented as of this encounter Progress Notes Kiah August H - 01/02/2008 4:37 PM CDT HAND OCCUPATIONAL THERAPY DAILY NOTE 01/02/2008 Patient Name: Loc Velasco [id number] Payor: SELF [id number] Plan: SELF INSURED Product Type: *No Product [...] continues to push on her fingers. OBJECTIVE Blocker And Polisher strength: right 39,44,43 left 24,22,25 3pt. Pinch: [...] Primary documented in this encounter Care Teams Kettle Girl Relationship Specialty Start Date End Date Alisha Kimball MD PCP - General 07/08/05 [address] [place] [address] documented as of this encounter
--- OUTSIDE RECORDS SUMMARY | 2022-06-10 14:28 | XMS_ITS | Encounter Summary ---
:1955 Author Organization [facility] Address [address] [place] [address] Care Team Providers Name Role Phone Alisha Kimball MD Primary Care Provider Encounter Details Date Type Department Care Team Description 07/16/2009 Imaging [facility] Screening, Mammography Unspecified [address] [place], [place] [phone] Social History Tobacco Use Types Packs/Day Years [...] Resu lts for this SCREENING BILAT W FACILITY OPERATIONS MANAGER Unspecified procedure are in CAD the results section. documented in this encounter Results MAMMOGRAM SCREENING BILATERAL [[id number]] (07/16/2009 8:43 AM FACILITY OPERATIONS MANAGER) Anatomical Region Laterality Modality Breast Bilateral Mammography Specimen (Source) Anatomical Location Collection Method / Collectio n Time Received Time / Laterality Volume Narrative 07/17/2009 1:31 PM FACILITY OPERATIONS MANAGER BILATERAL FULL FIELD DIGITAL SCREENING MAMMOGRAM Performed [...] unspecified documented in this encounter Care Teams Book Jacket Cover Machine Operator Relationship Specialty Start Date End Date Alisha Kimball MD PCP - General 07/08/05 [address] [place] [address] documented as of this encounter
--- OUTSIDE RECORDS SUMMARY | 2022-06-10 14:28 | XMS_ITS | Encounter Summary ---
:1955 Author Organization [facility] Address [address], [place] [address] Care Team Providers Name Role Phone Alisha Kimball MD Primary Care Provider Encounter Details Date Type Department Care Team Description 12/07/2007 Office Visit [facility] Kiah August H, OTR/L Mallet Finger (Primary [address] Dx) [address] [place] [phone] Social History Tobacco Use Types Packs/Day Years Used Date Smoking Tobacco: Never Alcohol Use Standard Drinks/Week Comments Not Asked 0 (1 standard drink = 0.6 oz pure alcoho l) Sex Assigned at Date Recorded Not on file documented as of this encounter Progress Notes Kiah August H - 12/07/2007 4:16 PM CDT HAND OCCUPATIONAL THERAPY DAILY NOTE 12/07/2007 Patient Name: Loc Velasco [id number] Payor: SELF [id number] Plan: SELF INSURED Product Type: *No Product [...] Primary documented in this encounter Care Teams Broadband Engineer Relationship Specialty Start Date End Date Alisha Kimball MD PCP - General 07/08/05 [address] [place] [address] documented as of this encounter
--- OUTSIDE RECORDS SUMMARY | 2022-06-10 14:28 | XMS_ITS | Encounter Summary ---
:1955 Author Organization [employer] Address [address], [place] [address] Care Team Providers Name Role Phone Alisha Kimball MD Primary Care Provider Encounter Details Date Type Department Care Team Description 12/27/2007 Office Visit [facility] Kiah August H, OTR/L Mallet Finger (Primary [address] Dx) [address] [place] [address] [phone] Social History Tobacco Use Types Packs/Day Years Used Date Smoking Tobacco: Never Alcohol Use Standard Drinks/Week Comments Not Asked 0 (1 standard drink = 0.6 oz pure alcoho l) Sex Assigned at Date Recorded Not on file documented as of this encounter Progress Notes Kiah August H - 12/27/2007 10:05 AM CDT HAND OCCUPATIONAL THERAPY DAILY NOTE 12/27/2007 Patient Name: Loc Velasco [id number] Payor: SELF [id number] Plan: SELF INSURED Product Type: *No Product [...] Active ROM, Passive ROM, Strengthening and Check ux designer/3pt. Pinch strength. Will continue to see pt. 1x/week for next 6 weeks. MINUTES SEEN: 30 Treatment Charges: Physical Agent Modalities: Ultrasound: Quantity: 1 Treatment: Therapeutic Exercises: Quantity: 1 Kiah Beal OTR/L documented in this encounter Plan of Treatment Not on filedocumented as of this encounter Visit Diagnoses Diagnosis Mallet finger - Primary documented in this encounter Care Teams Stone Processing Machine Operator Relationship Specialty Start Date End Date Alisha Kimball MD PCP - General 07/08/05 [address] [place] [address] documented as of this encounter
--- OUTSIDE RECORDS SUMMARY | 2022-06-10 14:28 | XMS_ITS | Encounter Summary ---
:1955 Author Organization [employer] Address [address], [place] [address] Care Team Providers Name Role Phone Alisha Kimball MD Primary Care Provider Encounter Details Date Type Department Care Team Description 12/19/2007 Office Visit Specialty Center Kiah August H, OTR/L Mallet Finger (Primary [address] Dx) [address] [place] [phone] Social History Tobacco Use Types Packs/Day Years Used Date Smoking Tobacco: Never Alcohol Use Standard Drinks/Week Comments Not Asked 0 (1 standard drink = 0.6 oz pure alcoho l) Sex Assigned at Date Recorded Not on file documented as of this encounter Progress Notes Kiah August H - 12/19/2007 3:53 PM CDT HAND OCCUPATIONAL THERAPY DAILY NOTE 12/19/2007 Patient Name: Loc Velasco [id number] Payor: SELF [id number] Plan: SELF INSURED Product Type: *No Product [...] Active ROM, Passive ROM, Strengthening and Check revenue stamp clerk/3pt. Pinch strength. Will continue to see pt. 1x/week for next 6 weeks. MINUTES SEEN: 30 Treatment Charges: Physical Agent Modalities: Ultrasound: Quantity: 1 Treatment: Therapeutic Exercises: Quantity: 1 YOLANDA Ellis/Salome documented in this encounter Plan of Treatment Not on filedocumented as of this encounter Visit Diagnoses Diagnosis Mallet finger - Primary documented in this encounter Care Teams Buildings And Grounds Director Relationship Specialty Start Date End Date Alisha Kimball MD PCP - General 07/08/05 [address] [place] [address] documented as of this encounter
--- OUTSIDE RECORDS SUMMARY | 2022-06-10 14:28 | XMS_ITS | Encounter Summary ---
:1955 Author Organization [facility] Address [address] [place] [address] Care Team Providers Name Role Phone Alisha Kimball MD Primary Care Provider Encounter Details Date Type Department Care Team Description 03/29/2008 Imaging [facility] [address] [place] [address] Social History Tobacco Use Types [...] limb documented in this encounter Care Teams Slab Polisher Relationship Specialty Start Date End Date Alisha Kimball MD PCP - General 07/08/05 [address] [place] [address] documented as of this encounter
--- OUTSIDE RECORDS SUMMARY | 2022-06-10 14:28 | XMS_ITS | Encounter Summary ---
:1955 Author Organization [facility] Address [address] [place] [address] Care Team Providers Name Role Phone Alisha Kimball MD Primary Care Provider Reason for Visit Reason Comments EXAM,ROUTINE patient is having problems w ith her near vison, she currently wears no glasses Encounter Details Date Type Department Care Team Description 04/28/2010 Office Visit [facility] Lebron Alfaro, Examination of eyes and visi on (Primary Dx); [address] OD Myopia; [place] [address] Presbyopia [phone] Social History Tobacco Use Types Packs/Day Years Used Date Smoking Tobacco: Never Alcohol Use Standard Drinks/Week Comments Not Asked 0 (1 standard drink = 0.6 oz pure alcoho l) Sex Assigned at Date Recorded Not on file documented as of this encounter Patient Instructions Patient InstructionsLebron Alfaro, OD - 04/28/2010 10:46 AM CDT [facility]. Many tests [...] the clinic in the future? Appointment Center: [phone] Eye Dept: [phone] Online Services: [email or web address] For after hours care, call the CareLine at [phone] or . We look forward to taking [...] Presbyopia documented in this encounter Care Teams Golf Course Keeper Relationship Specialty Start Date End Date Alisha Kimball MD PCP - General 07/08/05 [address] [place] [address] documented as of this encounter
--- OUTSIDE RECORDS SUMMARY | 2022-06-10 14:28 | XMS_ITS | Encounter Summary ---
:1955 Author Organization [facility] Address [address] [address] Care Team Providers Name Role Phone Alisha Kimball MD Primary Care Provider Reason for Referral Specialty Diagnoses / Procedures Referred By Contact Refer red To Contact Alexis Ponce PA -C [address], [place] [address] Referral ID Status Reason Start Date Expiration Date Visits Requ ested Visits Authorized Scheduling Instructions If an appointment with [facility] Fo ot and Ankle Surgery was advised and you have not been contacted to schedule that appo intment within 3 business days, please call [phone] for assistance. Reason for Visit Reason Comments ANKLE PAIN Lt ankle into foot pain x 2 weeks swollen by end of day may have stepped off stairs wrong. Unable to sleep due to pain Encounter Details Date Type Department Care Team Description 03/29/2008 Office Visit [facility] Alexis Ponce Foot Pa in (Primary Dx) Practice [facility] [address], [place] [address] [place], [place] [phone] Social History Tobacco Use Types Packs/Day Years [...] Body Mass Index 30.11 08/09/2007 4:16 PM DIRECTOR OF MEDICAL STAFF SERVICES documented in this encounter Patient Instructions Patient [...] couple times daily. Follow up with the real estate financial analyst. documented in this encounter Progress Notes Alexis [...] limb documented in this encounter Care Teams Welcome Hostess Relationship Specialty Start Date End Date Alisha Kimball MD PCP - General 07/08/05 [address] [place] [address] documented as of this encounter
--- OUTSIDE RECORDS SUMMARY | 2022-06-10 14:28 | XMS_ITS | Encounter Summary ---
:1955 Author Organization [employer] [facility] Address [address], [place] [address] Care Team Providers Name Role Phone Alisha Kimball MD Primary Care Provider Reason for Visit Reason Comments FOLLOW-UP,BP Encounter Details Date Type Department Care Team Description 05/07/2009 Office Visit [facility] Alisha Kimball, Elevated Blood Pressure (Primary Dx); Practice MD Breast Screening, Unspecified [address] [facility]. [address] [place] [address] [place] [address] [phone] Social History Tobacco Use Types Packs/Day Years Used Date Smoking Tobacco: Never Alcohol Use Standard Drinks/Week Comments Not Asked 0 (1 standard drink = 0.6 oz pure alcoho l) Sex Assigned at Date Recorded Not on file documented as of this encounter Last Filed Vital Signs Vital Sign Reading Time Taken Comments Blood Pressure 120/78 05/07/2009 8:35 AM ELECTRON BEAM PHOTO MASK TECHNICIAN Pulse 76 05/07/2009 8:35 AM ELECTRON BEAM PHOTO MASK TECHNICIAN Temperature - - Respiratory Rate 16 05/07/2009 8:35 AM ELECTRON BEAM PHOTO MASK TECHNICIAN Oxygen Saturation - - Inhaled Oxygen Concentration - - Weight 84.8 kg (187 lb) 05/07/2009 8:35 AM ELECTRON BEAM PHOTO MASK TECHNICIAN Height - - Body Mass Index 32.1 08/09/2007 4:16 PM ELECTRON BEAM PHOTO MASK TECHNICIAN documented in this encounter Progress Notes Alisha [...] blurry vision. Good exercise tolerance. Nouse of Sudafed/kinn-tqi-uejxkob decongestants. Rare EtOH and caffeine use. O: [...] blood pressure stays elevated. Alisha Kimball MD TRON BEAM PHOTO MASK TECHNICIAN documented in this encounter Plan of Treatment Not on filedocumented as of this encounter Results MAMMOGRAM SCREENING BILATERAL [[id number]] (07/16/2009 8:43 AM ELECTRON BEAM PHOTO MASK TECHNICIAN) Anatomical Region Laterality Modality Breast Bilateral Mammography Specimen (Source) Anatomical Location Collection Method / Collectio n Time Received Time / Laterality Volume Narrative 07/17/2009 1:31 PM ELECTRON BEAM PHOTO MASK TECHNICIAN BILATERAL FULL FIELD DIGITAL SCREENING MAMMOGRAM Performed [...] unspecified documented in this encounter Care Teams Md Psychiatry Relationship Specialty Start Date End Date Alisha Kimball MD PCP - General 07/08/05 [address] [place] [address] documented as of this encounter
--- OUTSIDE RECORDS SUMMARY | 2022-06-10 14:28 | XMS_ITS | Encounter Summary ---
:1955 [facility] Address [address] [place] [address] Care Team Providers Name Role Phone Alisha iKmball MD Primary Care Provider Reason for Referral Specialty Diagnoses / Procedures Referred By Contact Refer red To Contact Alisha Kimball MD [address] [place] [address] Referral ID Status Reason Start Date Expiration Date Visits Requ ested Visits Authorized Scheduling Instructions [facility] an [facility] and [facility] was advised and you have not been contacted to schedule that appo intment within 3 business days, please call [phone] for assistance. Specialty Diagnoses / Procedures Referred By Contact Refer red To Contact Alisha Kimball MD [address] [place] [address] Referral ID Status Reason Start Date Expiration Date Visits Requ ested Visits Authorized Scheduling Instructions [facility] an [facility] was advised and you have not been contacted to schedule that appo intment within 3 business days, please call [phone] for assistance. Reason for Visit Reason Comments ROUTINE HEALTH MAINTENANCE Encounter Details Date Type Department Care Team Description 04/28/2010 Office Visit [facility] Alisha Kimball, [facility] (Primary Dx); Practice Breast screening, unspecified; 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 Otherwise as above. ROS: A comprehensive review [...] reflexes are intact and symmetric. Left lateral mid-wood milling machine tender. No erythema, edema, increased warmth. [...] Tobacco Status reviewed? (see History: Social-Substance) -YES fryline attendant offered? -DECLINED. Aspirin taken daily? - [...] Results MAMMOGRAM SCREENING BILATERAL (07/21/2010 9:27 AM PHOTOVOLTAIC INSTALLER) Anatomical Region Laterality Modality Breast Bilateral Mammography Specimen (Source) Anatomical Location Collection Method / Collectio n Time Received Time / Laterality Volume Narrative 07/22/2010 2:03 PM PHOTOVOLTAIC INSTALLER BILATERAL FULL FIELD DIGITAL SCREENING MAMMOGRAM [...] BONE DENSITY SPINE/HIP ROUTINE (05/15/2010 7:58 AM PHOTOVOLTAIC INSTALLER) Anatomical Region Laterality Modality Lower Extremity, Spine, Hip, L-Spine Oth er Specimen (Source) Anatomical Location Collection Method / Collectio n Time Received Time / Laterality Volume Narrative 05/15/2010 8:11 AM PHOTOVOLTAIC INSTALLER WHO Criteria for the diagnosis of osteoporosis: T-score >-1 Normal T-score between -1 and -2.5 Osteopenia T-score <-2.5 Osteoporosis Fracture risk: T-score -1 ?? 2 times increased ?-2 ?? 4 times incre ased ?-3 ?? 6 times incre ased *With previous fragility fracture, risk of subsequent fracture doubles again SCREENING FOR OSTEO, HOLD CALCIUM Subway Train Driver and Model of Instrument: [employer] Demographics Age: 55 yr Gender: female Height [...] doubles again SCREENING FOR OSTEO, HOLD CALCIUM Subway Train Driver and Model of Instrument: [employer] Demographics Age: 55 yr Gender: female Height [...] HRS FASTING (V77.1) (04/28/2010 8:57 AM CDT) [facility] Method Time Signature Glucose 134 (H) 70 - 100 [facility] mg/dl Hours Fasting 15 hours [facility] Specimen Anatomical Collection Method Collection Time Receive d Time (Source) Location / / Volume Laterality 04/28/2010 8:57 AM 0 9:03 CDT AM CDT Alisha Kimball MD LAB_1 Performing Organization Address City/[facility] Phon e Number [facility] [phone] [address] ALT (SGPT) (04/28/2010 8:57 AM CDT) athologist Signature ALT (SGPT) 57 0 - 69 U/L [facility] Specimen Anatomical Collection Method Collection Time Receive d Time (Source) Location / / Volume Laterality 04/28/2010 8:57 AM 0 9:03 CDT AM CDT Alisha Kimball MD LAB_1 Performing Organization Address City/[facility] Phon e Number [employer] [phone] [address] CREATININE / GFR (04/28/2010 8:57 AM CDT) Analysis Performed At Path logist Time Signature Creatinine 0.79 0.52 - [facility] 1.04 mg/dl GFR, Estimated >60.0 >60 [facility] ml/min/1.7 3m2 GFR, Est., If >60.0 >60 [facility] Black ml/min/1.7 3m2 Specimen Anatomical Collection Method Collection Time Receive d Time (Source) Location / / Volume Laterality 04/28/2010 8:57 AM 0 9:03 CDT AM CDT Alisha Kimball MD LAB_1 Performing Organization Address City/[facility]/ZIP Code Phon e Number [facility] [phone] [address] HEMOGRAM/PLTS (04/28/2010 8:57 AM CDT) athologist Signature WBC 7.0 4.0 - 11.0 [facility] k/ul RBC 5.06 4.0 - 5.2 [facility] M/ul Hemoglobin 14.9 12.0 - 16.0 [facility] g/dl HCT 45.1 36.0 - 46.0 [facility] % MCV 89.2 80 - 100 fl [facility] MCH 29.5 26 - 34 pg [facility] MCHC 33.1 32 - 36 [facility] g/dl RDW 13.2 11.5 - 14.5 [facility] % Platelets 263 150 - 450 [facility] k/ul Specimen Anatomical Collection Method Collection Time Receive d Time (Source) Location / / Volume Laterality 04/28/2010 8:57 AM 0 9:03 CDT AM CDT Alisha Kimball MD LAB_1 Performing Organization Address City/[facility]/ZIP Code Phon e Number [facility] [phone] [address] TSH, SENSITIVE (WITH REFLEX)[[id number]] - Clinics ONLY (04/28/2010 8:57 AM CDT) athologist Signature TSH, with 1.966 0.465 - [facility] Reflex 4.68 uIU/ml Specimen Anatomical Collection Method Collection Time Receive d Time (Source) Location / / Volume Laterality 04/28/2010 8:57 AM 0 9:03 CDT AM CDT Alisha Kimball MD LAB_1 Performing Organization Address City/[facility]/ZIP Code Phon e Number [facility] [phone] [address] (ABNORMAL) LIPID PANEL AND DIRECT LDL(IF NEEDED) (04/28/2010 8:57 AM CDT) [facility] gist Method Time Signature Cholesterol 241 (H) 0 - 199 [facility] mg/dl Triglyceride 202 (H) 0 - 149 [facility] mg/dl HDL 44 >40 mg/dl [facility] LDL, Calc. 157 (H) 0 - 129 [facility] mg/dl Hours Fasting 15 hours [facility] Specimen Anatomical Collection Method Collection Time Receive d Time (Source) Location / / Volume Laterality 04/28/2010 8:57 AM 0 9:03 CDT AM CDT Alisha Kimball MD LAB_1 Performing Organization Address City/State/ZIP Code Phon e Number [facility] [phone] [facility] [address] [address] documented in this encounter Visit [...] unspecified documented in this encounter Care Teams Stucco Mason Relationship Specialty Start Date End Date Alisha Kimball MD PCP - General 07/08/05 [address] [place] [address] documented as of this encounter
--- OUTSIDE RECORDS SUMMARY | 2022-06-10 14:28 | XMS_ITS | Encounter Summary ---
:1955 Author Organization [email or web address] Address [address], [place] [address] Care Team Providers Name Role Phone Alisha Kimball MD Primary Care Provider Encounter Details Date Type Department Care Team Description 01/16/2008 Office Visit [facility] Kiah August H, OTR/L Mallet Finger (Primary [address] Dx) [address] [place] [phone] Social History Tobacco Use Types Packs/Day Years Used Date Smoking Tobacco: Never Alcohol Use Standard Drinks/Week Comments Not Asked 0 (1 standard drink = 0.6 oz pure alcoho l) Sex Assigned at Date Recorded Not on file documented as of this encounter Progress Notes Kiah August H - 01/16/2008 3:59 PM CDT HAND OCCUPATIONAL THERAPY DAILY NOTE 01/16/2008 Patient Name: Loc Velasco [id number] Payor: SELF [id number] Plan: SELF INSURED Product Type: *No Product [...] Instructed and issued pt. Theraputty for increased parts room assistant/pinch strength. ASSESSMENT Pain: decreased Edema: decreased Range [...] Primary documented in this encounter Care Teams First Sampler Relationship Specialty Start Date End Date Alisha Kimball MD PCP - General 07/08/05 [address] [place] [address] documented as of this encounter
--- OUTSIDE RECORDS SUMMARY | 2022-06-10 14:28 | XMS_ITS | Encounter Summary ---
:1955 Author Organization [facility] Address [address] [place] [address] Care Team Providers Name Role Phone Alisha Kimball MD Primary Care Provider Reason for Visit Reason Onset Date Comments RESULTS, X-RAY 04/02/2008 Encounter Details Date Type Department Care Team Description 04/02/2008 Telephone [facility] Alexis Frazier, PAMehreenC RESULTS, X-RAY [address] [place] [address] [place], [place] [phone] (Wo rk) Social History Tobacco Use Types [...] on filedocumented in this encounter Care Teams Welder/Fitter Relationship Specialty Start Date End Date Alisha Kimball MD PCP - General 07/08/05 [address] [place] [address] documented as of this encounter
--- OUTSIDE RECORDS SUMMARY | 2022-06-10 14:29 | XMS_ITS | Encounter Summary ---
:1955 Author Organization [employer] Address [address] [address] Care Team Providers Name Role Phone Alisha Kimball MD Primary Care Provider Reason for Visit Reason Comments INJURY, HAND hit today on door Right Encounter Details Date Type Department Care Team Description 01/12/2007 Office Visit [facility] Gu[facility] Wrist Injury (Primary Medicine R, Dx) [address] [facility]. [address] [place] [address] [place] [address] [phone] Social History Tobacco Use Types Packs/Day Years [...] wrist documented in this encounter Care Teams Adjunct English Instructor Relationship Specialty Start Date End Date Alisha Kimball MD PCP - General 07/08/05 [address] [place] [address] documented as of this encounter
--- OUTSIDE RECORDS SUMMARY | 2022-06-10 14:29 | XMS_ITS | Encounter Summary ---
:1955 Author Organization [facility] [employer] [facility] Address [address], [place] [address] Care Team Providers Name Role Phone Alisha Kimball MD Primary Care Provider Reason for Referral Specialty Diagnoses / Procedures Referred By Contact Refer red To Contact Jigar Mcgarry MD [address] [place] [address] Referral ID Status Reason Start Date Expiration Date Visits Requ ested Visits Authorized TIC LOADER Reason for Visit Reason Comments NEW MEMBER VISIT eval crush injury to her lef t long finger referred by Dr. Alisha Kimball DOI 06/02/07 Encounter Details Date Type Department Care Team Description 08/09/2007 [facility] Visit [facility] Jigar Mcgarry et Finger (Primary [address] [facility] Hand VMD Dx) Surgery [address] [place] [address] Social History Tobacco Use Types Packs/Day Years Used Date Smoking Tobacco: Never Alcohol Use Standard Drinks/Week Comments Not Asked 0 (1 standard drink = 0.6 oz pure alcoho l) Sex Assigned at Date Recorded Not on file documented as of this encounter Last Filed Vital Signs Vital Sign Reading Time Taken Comments Blood Pressure 121/84 08/09/2007 4:16 PM CAUSTIC LOADER Pulse 73 08/09/2007 4:16 PM CAUSTIC LOADER Temperature 36.7 ??C (98.1 ??F) 08/09/2007 4:16 PM CAUSTIC LOADER Respiratory Rate 16 08/09/2007 4:16 PM CAUSTIC LOADER Oxygen Saturation - - Inhaled Oxygen Concentration - - Weight 73.5 kg (162 lb) 08/09/2007 4:16 PM CAUSTIC LOADER Height 162.6 cm (5' 4) 08/09/2007 4:16 PM CAUSTIC LOADER Body Mass Index 27.81 08/09/2007 4:16 PM CAUSTIC LOADER documented in this encounter Patient Instructions Patient InstructionsSchJigar murcia V - 08/09/2007 4:45 PM CST Hand Therapy CATIA. Return to clinic in 8 weeks. Jigar Mcgarry MD Plastic and Hand Surgery TIC LOADER documented in this encounter Progress Notes Jigar Mcgarry V - 08/09/2007 12:00 AM CAUSTIC LOADER Loc Velasco is a 52 -year-old patient [...] weeks. P cc: MD Alisha Matos MD TIC LOADER documented in this encounter Plan of Treatment Not on filedocumented as of this encounter Visit Diagnoses Diagnosis Mallet finger - Primary documented in this encounter Care Teams Senior Construction Project Manager Relationship Specialty Start Date End Date Alisha Kimball MD PCP - General 07/08/05 [address] [place] [address] documented as of this encounter
--- OUTSIDE RECORDS SUMMARY | 2022-06-10 14:29 | XMS_ITS | Encounter Summary ---
:1955 Author Organization [employer] Address [address] [address] Care Team Providers Name Role Phone Alisha Kimball MD Primary Care Provider Reason for Referral Specialty Diagnoses / Procedures Referred By Contact Refer red To Contact Mauro Keyes MD [address] [place] [address] Referral ID Status Reason Start Date Expiration Date Visits Requ ested Visits Authorized ROOM EXECUTIVE DIRECTOR Reason for Visit Reason Comments Follow-up, NOS finger Encounter Details Date Type Department Care Team Description 08/02/2007 Office Visit [place] [facility] Mauro Keyes (Primary Medicine Carmen Amos MD Dx) [address] [facility]. [address] [place] [address] [place] [address] Social History Tobacco Use Types Packs/Day Years Used Date Smoking Tobacco: Never Alcohol Use Standard Drinks/Week Comments Not Asked 0 (1 standard drink = 0.6 oz pure alcoho l) Sex Assigned at Date Recorded Not on file documented as of this encounter Last Filed Vital Signs Vital Sign Reading Time Taken Comments Blood Pressure 116/62 08/02/2007 2:26 PM SHOWROOM EXECUTIVE DIRECTOR Pulse 76 08/02/2007 2:26 PM SHOWROOM EXECUTIVE DIRECTOR Temperature - - Respiratory Rate 16 08/02/2007 2:26 PM SHOWROOM EXECUTIVE DIRECTOR Oxygen Saturation - - Inhaled Oxygen Concentration - - Weight 73.9 kg (163 lb) 08/02/2007 2:26 PM SHOWROOM EXECUTIVE DIRECTOR Height 165.1 cm (5' 5) 08/02/2007 2:26 PM SHOWROOM EXECUTIVE DIRECTOR Body Mass Index 27.12 08/02/2007 2:26 PM SHOWROOM EXECUTIVE DIRECTOR documented in this encounter Progress Notes Mauro Keyes V - 08/02/2007 3:28 PM CST This office note has been dictated. ROOM EXECUTIVE DIRECTOR Mauro Keyes V - 08/02/2007 12:00 AM SHOWROOM EXECUTIVE DIRECTOR Ms. Velasco is a 52-year-old lady who [...] hand surgeon for further evaluation. P cc: ROOM EXECUTIVE DIRECTOR documented in this encounter Plan of Treatment Not on filedocumented as of this encounter Visit Diagnoses Diagnosis Finger pain - Primary Pain in limb documented in this encounter Care Teams Programmer Developer Relationship Specialty Start Date End Date Alisha Kimball MD PCP - General 07/08/05 [address] [place] [address] documented as of this encounter
--- OUTSIDE RECORDS SUMMARY | 2022-06-10 14:29 | XMS_ITS | Encounter Summary ---
:1955 Author [facility] Address [address], [place] [address] Care Team Providers Name Role Phone Alisha Kimball MD Primary Care Provider Encounter Details Date Type Department Care Team Description 08/22/2007 Office Visit [facility] Janiya Knowles let Finger (Primary [address] [facility] A, OTR/L Dx) [address] [place] [address] [place], [place] [phone] [address] Social History Tobacco Use Types Packs/Day Years Used Date Smoking Tobacco: Never Alcohol Use Standard Drinks/Week Comments Not Asked 0 (1 standard drink = 0.6 oz pure alcoho l) Sex Assigned at Date Recorded Not on file documented as of this encounter Progress Notes Janiya Knowles A - 08/22/2007 10:02 AM CST HAND OCCUPATIONAL THERAPY DAILY NOTE 08/22/2007 Patient Name: Loc Velasco [id number] Payor: SELF [id number] Plan: SELF INSURED Product Type: *No Product [...] 1 Therapeutic Procedure: Quantity: 1 Janiya Knowles,OTR/L,CHT L ROLLER documented in this encounter Plan of Treatment Not on filedocumented as of this encounter Visit Diagnoses Diagnosis Mallet finger - Primary documented in this encounter Care Teams Fractionating Still Operator Relationship Specialty Start Date End Date Alisha Kimball MD PCP - General 07/08/05 [address] [place] [address] documented as of this encounter
--- OUTSIDE RECORDS SUMMARY | 2022-06-10 14:29 | XMS_ITS | Encounter Summary ---
:1955 Author [facility] Address [address] [place] [address] Care Team Providers Name Role Phone Alisha Kimball MD Primary Care Provider Encounter Details Date Type Department Care Team Description 08/16/2007 Orders Only [facility] Mammogram I, Sp O ther Screening Mammography Mammogram (Primary [address] Dx) [place], [place] [id number] Social History Tobacco Use Types Packs/Day Years [...] Brittney Steen MD D: cc: Radiology SP AGER HEAD documented in this encounter Plan of Treatment Not on filedocumented as of this encounter Procedures Procedure Name Priority Date/Time Associated Diagnosis Comme nts SCREENING MAMMO Routine 08/16/2007 12:00 AM Other Screening Re sults for this DIRECT DIGITAL IMG PACKAGER HEAD Mammogram procedure are in BECCA the results section. documented in this encounter Results MAMMOGRAM, SCREENING (DIGITAL) (08/16/2007 12:00 AM PACKAGER HEAD) Anatomical Region Laterality Modality Breast Other Transcriptions [...] Primary documented in this encounter Care Teams Audio Director Relationship Specialty Start Date End Date Alisha Kimball MD PCP - General 07/08/05 [address] [place] [address] documented as of this encounter
--- OUTSIDE RECORDS SUMMARY | 2022-06-10 14:29 | XMS_ITS | Encounter Summary ---
:1955 Author Organization [employer] Address [address] [place] [address] Care Team Providers Name Role Phone Alisha Kimball MD Primary Care Provider Reason for Visit Reason Comments CONSULT prolasp bladder Encounter Details Date Type Department Care Team Description 10/06/2006 Office Visit [facility] Froy Rutherford Vagin al Prolapse and Gynecology (Primary Dx) [address] [place] [address] Social History Tobacco Use Types [...] prolapse - Primary Unspecified prolapse of vaginal engladn documented in this encounter Care Teams Block Cableman Relationship Specialty Start Date End Date Alisha Kimball MD PCP - General 07/08/[address] [place] [address] documented as of this encounter
--- OUTSIDE RECORDS SUMMARY | 2022-06-10 14:29 | XMS_ITS | Encounter Summary ---
:1955 Author Organization [employer] Address [address] [place] [address] Care Team Providers Name Role Phone Alisha Kimball MD Primary Care Provider Reason for Visit Reason Comments INJURY, FINGERS 3rd finger lt hand caught in car door last night Encounter Details Date Type Department Care Team Description 06/02/2007 Office Visit [facility] Gino Chavez, Rupt ure of Extensor Tendons of Hand and Wrist (Primary Dx); Practice MD Finger Injury [address] [place] [address] [address] [phone] [place] [address] (Wo rk) Social History Tobacco Use Types Packs/Day Years Used Date Smoking Tobacco: Never Alcohol Use Standard Drinks/Week Comments Not Asked 0 (1 standard drink = 0.6 oz pure alcoho l) Sex Assigned at Date Recorded Not on file documented as of this encounter Last Filed Vital Signs Vital Sign Reading Time Taken Comments Blood Pressure 122/84 06/02/2007 9:19 AM REFRACTIVE SURGEON Pulse 72 06/02/2007 9:19 AM REFRACTIVE SURGEON Temperature - - Respiratory Rate - - Oxygen Saturation - - Inhaled Oxygen Concentration - - Weight 75.8 kg (167 lb 3.2 oz) 06/02/2007 9:19 AM REFRACTIVE SURGEON Height - - Body Mass Index 27.82 [...] all during this time. Gino Chavez MD ACTIVE SURGEON documented in this encounter Procedure Notes Milagro Valera - 06/02/2007 12:00 AM CSTAssociated Order(s): FINGER(S) INITIAL& FOLLOW UP CLINICAL DATA: LEFT MIDDLE FINGER JAMMED BY A CAR DOOR YESTERDAY, UNABLE TO EXTEND DIP EXAMINATION: LEFT THIRD FINGER 06/02/2007: FINDINGS: Normal examination. Milagro Valera MD A cc: Gino Chavez MD Radiology [place] ACTIVE SURGEON documented in this encounter Plan of Treatment Not on filedocumented as of this encounter Procedures Procedure Name Priority Date/Time Associated Diagnosis Comme nts RADEX FNGR MINIMUM Routine 06/02/2007 12:00 AM Finger Injury R esults for this 2 VIEWS REFRACTIVE SURGEON procedure are i n the results section. documented in this encounter Results Finger (06/02/2007 12:00 AM REFRACTIVE SURGEON) Anatomical Region Laterality Modality Other Transcriptions Milagro [...] finger documented in this encounter Care Teams Fuse Assembler Relationship Specialty Start Date End Date Alisha Kimball MD PCP - General 07/08/05 [address] [place] [address] documented as of this encounter
--- OUTSIDE RECORDS SUMMARY | 2022-06-10 14:29 | XMS_ITS | Encounter Summary ---
:1955 Author Organization [facility] Address [address] [place] [address] Care Team Providers Name Role Phone Alisha Kimball MD Primary Care Provider Encounter Details Date Type Department Care Team Description 01/26/2006 Correspondence [facility] govind Colonoscopy Gastroenterology MD Malik Informed Consent [address] [address] RADIO JUAQUIN [address] [address] [place], [place] [phone] Social History Tobacco Use Types Packs/Day Years [...] on filedocumented in this encounter Care Teams Graduate Student Relationship Specialty Start Date End Date Alisha Kimball MD PCP - General 07/08/[address] [place], [place] [id number] documented as of this encounter
--- OUTSIDE RECORDS SUMMARY | 2022-06-10 14:29 | XMS_ITS | Encounter Summary ---
:1955 Author Organization [employer] Address [address] [place] [address] Care Team Providers Name Role Phone Carroll Kimball MD Primary Care Provider Reason for Visit Reason Comments MOLE she is fasting CONSTIPATION noticed a buldge in back Encounter Details Date Type Department Care Team Description 09/09/2006 Office Visit [facility] Carroll Kimball, Skin Les ion (Primary Dx); Practice [facility] for DTP; [address] Screening Cholesterol Level; [place] [address] [address] Screening for Diabetes Mellitus; [phone] [place], [place] Frequent Urinat ion; [address] Cystocele; [phone] Constipation; (Work) Hypercholesteremia Social History Tobacco Use Types Packs/Day Years Used Date Smoking Tobacco: Never Alcohol Use Standard Drinks/Week Comments Not Asked 0 (1 standard drink = 0.6 oz pure alcoho l) Sex Assigned at Date Recorded Not on file documented as of this encounter Last Filed Vital Signs Vital Sign Reading Time Taken Comments Blood Pressure 132/78 09/09/2006 2:20 PM GRINDING AND POLISHING LABORER Pulse 82 09/09/2006 2:20 PM GRINDING AND POLISHING LABORER Temperature 37.1 ??C (98.7 ??F) 09/09/2006 2:20 PM GRINDING AND POLISHING LABORER Respiratory Rate 26 09/09/2006 2:20 PM GRINDING AND POLISHING LABORER Oxygen Saturation - - Inhaled Oxygen Concentration - - Weight 88.1 kg (194 lb 3.2 oz) 09/09/2006 2:20 PM GRINDING AND POLISHING LABORER Height - - Body Mass Index - - documented in this encounter Progress Notes Carroll Kimball - 09/11/2006 9:44 PM GRINDING AND POLISHING LABORER Addended by: CARROLL KIMBALL on: 09/11/2006 9:44:12 PM Modules accepted: Orders DING AND POLISHING LABORER Carroll Kimball - 09/09/2006 3:23 PM CST This office note has been dictated. Carroll Kimball MD DING AND POLISHING LABORER Carroll Kimball - 09/09/2006 12:00 AM GRINDING AND POLISHING LABORER SUBJECTIVE: Loc is seen today with several [...] to help. She will sometimes use an zcts-xzk-tjpjytp stool softener. She's not sure if that [...] See orders. Results by mail. A cc: DING AND POLISHING LABORER documented in this encounter Plan of Treatment Not on filedocumented as of this encounter Procedures Procedure Name Priority Date/Time Associated Diagnosis Comme nts BASIC METABOLIC Routine 09/09/2006 3:39 PM Frequent Urination Results for this PANEL GRINDING AND POLISHING LABORER procedure are i n the results section. UA MICRO IF Routine 09/09/2006 3:39 PM Frequent Urination Res ults for this GRINDING AND POLISHING LABORER procedure are i n the results section. LIPID PANEL, FAST > Routine 09/09/2006 3:39 PM Screening Re sults for this 12 HOUR GRINDING AND POLISHING LABORER Cholesterol Level procedure are in the results section. URINE CULTURE Routine 09/09/2006 3:39 PM Frequent Urination Re sults for this GRINDING AND POLISHING LABORER procedure are i n the results section. UA MICRO Routine 09/09/2006 3:39 PM Results f or this GRINDING AND POLISHING LABORER procedure are i n the results section. documented in this encounter Results UA MICRO (09/09/2006 3:39 PM GRINDING AND POLISHING LABORER) [facility] [employer] Method Time Signature RBC'S 0-3 0 - 3 [facility] /hpf WBC'S 3-5 0 - 5 [facility] /hpf Epith, Many /hpf [facility] Squamous Bact Occ [facility] Casts 0 /lpf [facility] Other Mod Mucous [facility] Specimen Anatomical Collection Method Collection Time Receive d Time (Source) Location / / Volume Laterality 09/09/2006 3:39 PM 7 3:40 GRINDING AND POLISHING LABORER PM GRINDING AND POLISHING LABORER Carroll Kimball MD LAB_1 Performing Organization Address [facility] Phon e Number [employer] [phone] [facility] [address] [place] [phone] URINE CULTURE (09/09/2006 3:39 PM GRINDING AND POLISHING LABORER) Component Value Ref Test Analysis Performed At [facility] [employer] Range Method Time Signature Specimen Urine [facility] Description Midstream Special Unspecified [facility] Requests Culture No Growth [facility] After 1 Day Report Status Final [id number] [facility] Specimen Anatomical Collection Method Collection Time Receive d Time (Source) Location / / Volume Laterality 09/09/2006 3:39 PM 7 3:40 GRINDING AND POLISHING LABORER PM GRINDING AND POLISHING LABORER Carroll Kimball MD LAB_1 Performing Organization Address [facility] Phon e Number [employer] [phone] [facility] [address] [place] [phone] (ABNORMAL) UA MICRO IF (09/09/2006 3:39 PM GRINDING AND POLISHING LABORER) [facility] [employer] Method Time Signature Appr Yellow [facility] Appr [...] Volume Laterality 09/09/2006 3:39 PM 7 3:40 GRINDING AND POLISHING LABORER PM GRINDING AND POLISHING LABORER Carroll Kimball MD LAB_1 Performing Organization Address [facility] Phon e Number [facility] [employer] [phone] [facility] [address] [place] [phone] BASIC METABOLIC PANEL (09/09/2006 3:39 PM GRINDING AND POLISHING LABORER) athologist Signature BUN 20 10 - 26 [...] ml/min/1.7 3m2 Calcium 9.4 8.2 - 10.0 [facility] mg/dl Anion Gap 10 7 - 17 [facility] (calc.) mmol/L Specimen Anatomical Collection Method Collection Time Receive d Time (Source) Location / / Volume Laterality 09/09/2006 3:39 PM 7 3:40 GRINDING AND POLISHING LABORER PM GRINDING AND POLISHING LABORER Carroll Kimball MD LAB_1 Performing Organization Address [facility] Phon e Number [facility] [employer] [phone] [phone] (ABNORMAL) CHOLESTEROL LIPID PANEL FAST >12HR (09/09/2006 3:39 PM GRINDING AND POLISHING LABORER) P athologist Signature Cholesterol 205 (H) <200 mg/dl [facility] Comment: Result should not be interpreted without the patient's history of cardiovascular risk factors. Triglyceride 137 <200 mg/dl [facility] HDL 40 >35 mg/dl [facility] LDL, Calc. 138 mg/dl [facility] Hours Fasting 12 hours [facility] Specimen Anatomical Collection Method Collection Time Receive d Time (Source) Location / / Volume Laterality 09/09/2006 3:39 PM 7 3:40 GRINDING AND POLISHING LABORER PM GRINDING AND POLISHING LABORER Carroll Kimball MD LAB_1 Performing Organization Address City/State/ZIP Code Phon e Number [facility] [phone] [facility] [address] [phone] documented in this encounter Visit Diagnoses Diagnosis Skin lesion - Primary Unspecified disorder of skin and subcuta neous tissue Need for prophylactic vaccination with c ombined txrpfnbiuo-twixbjs-mhepyddbz (DTP) vaccine Screening cholesterol level Screening for lipoid disorders Screening for diabetes mellitus Frequent urination Urinary frequency Cystocele Cystocele, midline Constipation Unspecified constipation Hypercholesteremia Pure hypercholesterolemia documented in this encounter Care Teams Material Man Relationship Specialty Start Date End Date Carroll Kimball MD PCP - General 07/08/05 [address] [place] [address] documented as of this encounter
--- OUTSIDE RECORDS SUMMARY | 2022-06-10 14:29 | XMS_ITS | Encounter Summary ---
:1955 Author Organization [facility] Address [address] [place] [address] Care Team Providers Name Role Phone Alisha Kimball MD Primary Care Provider Encounter Details Date Type Department Care Team Description 01/26/2006 Orders Only [employer] Claims MD Cande Security Contact Bill [address] [place] [address] Mailstop [phone] (Wo rk) Social History Tobacco Use Types [...] filedocumented in this encounter Care Teams Warehouse Puller Relationship Specialty Start Date End Date Alisha Kimball MD PCP - General 07/08/[address] [place] [address] documented as of this encounter
--- OUTSIDE RECORDS SUMMARY | 2022-06-10 14:29 | XMS_ITS | Encounter Summary ---
:1955 Author Organization [employer] Address [address] [place] [address] Care Team Providers Name Role Phone Alisha Kimball MD Primary Care Provider Reason for Referral Specialty Diagnoses / Procedures Referred By Contact Refer red To Contact Wendi Berry, REGINALD Clark [address] [place] [address] Referral ID Status Reason Start Date Expiration Date Visits Requ ested Visits Authorized Reason for Visit Reason Comments Follow Up mallet injury Encounter Details Date Type Department Care Team Description 11/01/2007 Office Visit Specialty Center Jigar Mcgarry Mall et Finger (Primary [address] Hand V, Dx) Surgery [address] [place] [phone] Social History Tobacco Use Types Packs/Day Years [...] Primary documented in this encounter Care Teams Manufacturer Representative Relationship Specialty Start Date End Date Alisha Kimball MD PCP - General 07/08/05 [address] [place] [address] documented as of this encounter
--- OUTSIDE RECORDS SUMMARY | 2022-06-10 14:29 | XMS_ITS | Encounter Summary ---
:1955 Author Organization [facility] Address [address] [address] Care Team Providers Name Role Phone Alisha Kimball MD Primary Care Provider Encounter Details Date Type Department Care Team Description 08/31/2007 Office Visit Specialty Center Arlene Hensley Ma llet Finger (Primary [address] Therapy OTR/L Dx) 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 ICD-9-code: 736.1 Date of Onset: 06/02/07 Date of Surgery: not applicable Referring Physician: Jigar Mcgarry V Order Date(s): 08/09/07 Date of initial evaluation/progress note(s): 08/17/2007 Injury: Left Hand Dominance: Right CURRENT HOME PROGRAM : [employer] use of mallet splint VISIT NUMBER: 3 out of 3 PAIN: Intensity Level: Current Not rated/10 SUBJECTIVE Patient reports [employer] use of splint. Changes splint every two [...] Functional limitations TREATMENT PLAN Pt will continue [employer] splinting through . Will reschedule her Dr [...] Quantity: 2 Nicolasa Hensley, OTR, CHT, MLD DISPATCHER documented in this encounter Plan of Treatment Not on filedocumented as of this encounter Visit Diagnoses Diagnosis Mallet finger - Primary documented in this encounter Care Teams Region Manager Relationship Specialty Start Date End Date Alisha Kimball MD PCP - General 07/08/05 [address] [place] [address] documented as of this encounter
--- OUTSIDE RECORDS SUMMARY | 2022-06-10 14:29 | XMS_ITS | Encounter Summary ---
:1955 Author [facility] Address [address] [place] [address] Care Team Providers Name Role Phone Alisha [...] on filedocumented in this encounter Care Teams Lighting Director Relationship Specialty Start Date End Date Alisha Kimball MD PCP - General 07/08/[address] [place], [place] [id number] documented as of this encounter
--- OUTSIDE RECORDS SUMMARY | 2022-06-10 14:29 | XMS_ITS | Encounter Summary ---
:1955 Author Organization [facility] Address [address] [place] [address] Care Team Providers Name Role Phone Alisha Kimball MD Primary Care Provider Reason for Visit Reason Onset Date Comments Dental Concerns 09/11/2006 Encounter Details Date Type Department Care Team Description 09/11/2006 Telephone Careline Faye Patel RN Dental Concerns [address] [place], [place] [address] Social History Tobacco Use Types Packs/Day Years [...] dentist at 8am 8:12 AM Vero from [facility] calling to take information and will call back patient. Faye Patel RN OMER CARE PROFESSIONAL documented in this encounter Plan of Treatment Not on filedocumented as of this encounter Visit Diagnoses Not on filedocumented in this encounter Care Teams Freezer Tunnel Operator Relationship Specialty Start Date End Date Alisha Kimball MD PCP - General 07/08/05 [address] [place] [address] documented as of this encounter
--- OUTSIDE RECORDS SUMMARY | 2022-06-10 14:29 | XMS_ITS | Encounter Summary ---
:1955 Author Organization [employer] Address [address], [place] [address] Care Team Providers Name Role Phone Alisha Kimball MD Primary Care Provider Encounter Details Date Type Department Care Team Description 08/17/2007 Office Visit [facility] Arlnee Hensley Ma llet Finger (Primary 401 Hand Therapy OTR/L Dx) 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 Patient trained [...] to allow future independence with self cares. FDC GOALS: to be completed in 12 weeks. [...] hand therapy evaluation can be directed to [phone]. MINUTES SEEN: 50 NEXT TREATMENT: Remold splints into increased extension. Review Home Exercise Program. Determine range of motion gains. Assess frequency needs. Nicolasa Hensley, OTR, CHT, MLD Treatment Charges: Evaluations: O.T. Evaluation Qty: 1 Treatment: Selfcare Activities: Quantity: 1 Orthotic/Prosthetic (mgmt/training/assess/fit) Quantity: 1 Custom Splints: Finger splint - Quantity: 1 TAL MARKETING ANALYST documented in this encounter Plan of Treatment Not on filedocumented as of this encounter Visit Diagnoses Diagnosis Mallet finger - Primary documented in this encounter Care Teams Blending Tank Tender Helper Relationship Specialty Start Date End Date Alisha Kimball MD PCP - General 07/08/[address] [place] [address] documented as of this encounter
--- OUTSIDE RECORDS SUMMARY | 2022-06-10 14:30 | XMS_ITS | Encounter Summary ---
:1955 Author Organization [facility] Address [address] [place] [address] Care Team Providers Name Role Phone Alisha Kimball MD Primary Care Provider Encounter Details Date Type Department Care Team Description [facility] MD Malik MALIG NEOPLASMS, [address] [place] [address] [address] [address] [place] [address] Social History Tobacco Use [...] colon documented in this encounter Care Teams Server Manager Relationship Specialty Start Date End Date Alisha Kimball MD PCP - General 07/08/05 [address] [place] [address] documented as of this encounter
--- OUTSIDE RECORDS SUMMARY | 2022-06-10 14:30 | XMS_ITS | Encounter Summary ---
:1955 Author Organization [facility] Address [address] [place] [address] Care Team Providers Name Role Phone Luis Pierce MD Primary Care Provider Unavailable Encounter Details Date Type Department Care Team Description 11/22/2000 Office Visit [facility] Miky Salinas MD COUGH; [address] [place] [address] [place] [address] [phone] (Wo rk) Social History Tobacco Use Types [...] ronic documented in this encounter Care Teams Trust Advisor Relationship Specialty Start Date End Date Luis Pierce MD PCP - General 05/27/1998 documented as of this encounter
--- OUTSIDE RECORDS SUMMARY | 2022-06-10 14:30 | XMS_ITS | Encounter Summary ---
:1955 Author Organization [facility] Address [address], [place] [address] Care Team Providers Name Role Phone Miky Sultana MD Primary Care Provider Reason for Referral Specialty Diagnoses / Procedures Referred By Contact Refer red To Contact Miky Sultana MD [address] [place] [address] Referral ID Status Reason Start Date Expiration Date Visits Requ ested Visits Authorized S B TRUCK DRIVER Reason for Visit Reason Comments COUGH CONSTIPATION with bloating Encounter Details Date Type Department Care Team Description 06/17/2005 Office Visit [facility] Miky Sultana MD CONSTIPATION NOS Practice [address] [facility] (Primary Dx) [address] [place] [address] [place] [address] [phone] Social History Tobacco Use Types Packs/Day Years Used Date Smoking Tobacco: Never Alcohol Use Standard Drinks/Week Comments Not Asked 0 (1 standard drink = 0.6 oz pure alcoho l) Sex Assigned at Date Recorded Not on file documented as of this encounter Last Filed Vital Signs Vital Sign Reading Time Taken Comments Blood Pressure 122/64 06/17/2005 9:23 AM CLASS B TRUCK DRIVER Pulse 78 06/17/2005 9:23 AM CLASS B TRUCK DRIVER Temperature 36.9 ??C (98.4 ??F) 06/17/2005 9:23 AM CLASS B TRUCK DRIVER Respiratory Rate 26 06/17/2005 9:23 AM CLASS B TRUCK DRIVER Oxygen Saturation - - Inhaled Oxygen Concentration - - Weight 84.5 kg (186 lb 3.2 oz) 06/17/2005 9:23 AM CLASS B TRUCK DRIVER Height - - Body Mass Index - - documented in this encounter Progress Notes 06/17/2005 9:20 AM CLASS B TRUCK DRIVER This office note has been dictated. MD [...] including a trial of Metamucil. P cc: S B TRUCK DRIVER documented in this encounter Plan of Treatment Scheduled Referrals Name Type Priority Associated Diagnoses Order S chedule COLONOSCOPY-DIAGNOSTIC Referral Routine Constipation Nos O rdered: 06/17/2005 documented as of this encounter Visit Diagnoses Diagnosis Unspecified constipation - Primary documented in this encounter Care Teams Machinist Helper Marine Relationship Specialty Start Date End Date Miky Sultana MD PCP - General 09/21/01 07/07/05 [address] [place] [address] documented as of this encounter
--- OUTSIDE RECORDS SUMMARY | 2022-06-10 14:30 | XMS_ITS | Encounter Summary ---
:1955 Author Organization [employer] Address [address] [address] Care Team Providers Name Role Phone Miky Sultana MD Primary Care Provider Reason for Visit Reason Comments BP CHECK,NURSE Encounter Details Date Type Department Care Team Description 03/16/2005 Office Visit [facility] Senior Technologist/Christopher/Simona Sibley HYPERTENSI ON NOS Department Nursing [address] [facility]. [address] [place] [address] [place] [address] [phone] Social History Tobacco Use Types Packs/Day Years [...] documented in this encounter Care Teams Senior Net Engineer Relationship Specialty Start Date End Date Miky Sultana MD PCP - General 09/21/01 07/07/05 [address] [place] [address] documented as of this encounter
--- OUTSIDE RECORDS SUMMARY | 2022-06-10 14:30 | XMS_ITS | Encounter Summary ---
:1955 Author Organization [facility] Address [address], [place] [address] Care Team Providers Name Role Phone Miky [...] Component Value Ref Test Analysis Performed At [facility] Range Method Time Signature Dermatopathology [facility] Patient: BENY VERDUGO : 09/11/1937 Med Rec: [id number] Phone: ??-- Date of BX: 01/15/2000 Date Acc: 01/16/2000 Date of DX: 01/20/2000 Physician: NITISH GOTTI MD INTERP: Mat Delgado,Miky Soni MICRO: ??The specimen shows hyperkeratosis with basaloid epidermal hyperplasia and horn cyst formation typical of a seborrheic keratosis. DIAGNOSIS: ??NECK, LEFT : SEBORRHEIC KERATOSIS SNOMED-T: ??T-04832 SNOMED-M: M-[id number] ICD9-CM: 702.19 {} Specimen (Source) Anatomical Location Collection Method / Collectio n Time Received Time / Laterality Volume 01/15/2000 Nitish Gotti MD PAPS Performing Organization Address City/State/ZIP Code Phon e Number [facility] [address] [place] [address] documented in this encounter Visit Diagnoses Diagnosis Other seborrheic keratosis documented in this encounter Care Teams Rose Grower Relationship Specialty Start Date End Date Miky Sultana MD PCP - General 09/21/01 07/07/05 [place] [address] documented as of this encounter
--- OUTSIDE RECORDS SUMMARY | 2022-06-10 14:30 | XMS_ITS | Encounter Summary ---
:1955 [facility] Address [address] [place] [address] Care Team Providers Name Role Phone Alisha [...] filedocumented in this encounter Care Teams Senior Gis Analyst Relationship Specialty Start Date End Date Alisha Kimball MD PCP - General 07/08/[address] [place], [place] [address] documented as of this encounter
--- OUTSIDE RECORDS SUMMARY | 2022-06-10 14:30 | XMS_ITS | Encounter Summary ---
:1955 Author Organization [facility] Address [address] [place] [address] Care Team Providers Name Role Phone Alisha Kimball MD Primary Care Provider Encounter Details Date Type Department Care Team Description 05/03/2000 Orders Only [facility] [address] [place] [address] Social History Tobacco Use Types Packs/Day Years Used Date Smoking Tobacco: Never Assessed Sex Assigned at Date Recorded Not on file documented as of this encounter Plan of Treatment Not on filedocumented as of this encounter Procedures Procedure Name Priority Date/Time Associated Diagnosis Comme nts URINE CULTURE Routine 05/03/2000 6:54 PM Results for this COMPONENT DESIGN ENGINEER procedure are i n the results section . documented in this encounter Results URINE CULTURE (MIDSTREAM) (05/03/2000 6:54 PM COMPONENT DESIGN ENGINEER) [facility] Method Time Signature Specimen Urine [facility] Description Special None [facility] Requests Culture No Growth [facility] After 1 Day Report Status Final [facility] Report Status [id number] [facility] Specimen Anatomical Collection Method Collection Time Receive d Time (Source) Location / / Volume Laterality 05/03/2000 6:54 PM 0 6:55 COMPONENT DESIGN ENGINEER PM COMPONENT DESIGN ENGINEER [facility] LAB_1 Performing Organization Address City/State/ZIP Code Phon e Number [facility] [phone] [facility] [address] [phone] documented in this encounter Visit Diagnoses Not on filedocumented in this encounter Care Teams Plastics Production Machine Operator Relationship Specialty Start Date End Date Alisha Kimball MD PCP - General 07/08/[address] [place] [address] documented as of this encounter
--- OUTSIDE RECORDS SUMMARY | 2022-06-10 14:30 | XMS_ITS | Encounter Summary ---
:1955 Author Organization [facility] Address [address], [place] [address] Care Team Providers Name Role Phone Luis Pierce MD Primary Care Provider Unavailable Reason for Visit Reason Comments PAIN, NOS VIA INTERFACE Encounter Details Date Type Department Care Team Description 01/27/2000 Office Visit [facility] Miky Sultana MD ANKLE ENTHESOPATHY NOS Practice [address] [facility] [address] [place] [address] [place] [address] Social History Tobacco Use Types Packs/Day Years [...] anti-inflammatory medications and maybe even try an cevw-vct-rvyerxe arch support. cc: documented in this encounter Plan of Treatment Not on filedocumented as of this encounter Visit Diagnoses Diagnosis Enthesopathy of ankle and tarsus, unspec ified documented in this encounter Care Teams Traffic Coordinator Relationship Specialty Start Date End Date Luis Pierce MD PCP - General 05/27/1998 documented as of this encounter
--- OUTSIDE RECORDS SUMMARY | 2022-06-10 14:30 | XMS_ITS | Encounter Summary ---
:1955 Author Organization [facility] Address [address], [place] [address] Care Team Providers Name Role Phone Luis Pierce MD Primary Care Provider Unavailable Encounter Details Date Type Department Care Team Description 02/22/2001 Office Visit [facility] Miky Sultana MD CHONDROMALACIA PATELLAE Practice [address] [facility] [address] [place] [address] [place] [address] Social History Tobacco Use Types Packs/Day Years [...] patella documented in this encounter Care Teams Material Carrier Relationship Specialty Start Date End Date Luis Pierce MD PCP - General 05/27/1998 documented as of this encounter
--- OUTSIDE RECORDS SUMMARY | 2022-06-10 14:30 | XMS_ITS | Encounter Summary ---
:1955 Author Organization [facility] [employer] [facility] Address [address] [place] [address] Care Team Providers Name Role Phone Miky Sultana MD Primary Care Provider Reason for Visit Reason Comments INFECTION, URINARY TRACT Encounter Details Date Type Department Care Team Description 02/25/2005 Office Visit [facility] Alisha Kimball, URINARY FREQUENCY (Primary Dx); Practice NONSPECIF SKIN ERUPT NEC; [address] [place] [address] [place] [address] [phone] Social History Tobacco Use Types Packs/Day Years [...] is my first visit with this 50 -owzs-duz-mzximl seen today primarily for evaluation of some [...] trial of Nystatin cream bid layered with hxiw-bdq-mfeywlu 1% cortisone cream. She is counseled that [...] She may even need to use a astronomy department chair after showering. 2. Hypertension. She [...] WBC 8.5 4.0 - 11.0 [facility] k/ul RBC 4.58 4.0 - 5.2 [facility] M/ul Hemoglobin 13.9 12.0 - 16.0 [facility] g/dl HCT 40.0 36.0 - 46.0 [facility] % MCV 87.1 80 - 100 fl [facility] MCH 30.3 26 - 34 pg [facility] MCHC 34.8 32 - 36 % [facility] RDW 13.1 11.5 - 14.5 [facility] % Platelets 286 150 - 450 [facility] k/ul Specimen Anatomical Collection Method Collection Time Receive d Time (Source) Location / / Volume Laterality 02/25/2005 2:35 PM 5 2:36 CDT PM CDT Alisha Kimball MD LAB_1 Performing Organization Address City/[facility] Phon e Number [facility] [phone] [phone] SODIUM (02/25/2005 2:35 PM CDT) athologist Signature Sodium 140 135 - 145 [facility] mmol/L Specimen Anatomical Collection Method Collection Time Receive d Time (Source) Location / / Volume Laterality 02/25/2005 2:35 PM 5 2:36 CDT PM CDT Alisha Kimball MD LAB_1 Performing Organization Address City/[facility] Phon e Number [facility] [phone] [address] POTASSIUM (02/25/2005 2:35 PM CDT) athologist Signature Potassium 4.2 3.5 - 5.3 [facility] mmol/L Specimen Anatomical Collection Method Collection Time Receive d Time (Source) Location / / Volume Laterality 02/25/2005 2:35 PM 5 2:36 CDT PM CDT Alisha Kimball MD LAB_1 Performing Organization Address City/State/ZIP Code Phon e Number [facility] [employer] [facility] [phone] [facility] [address] [place] [phone] GLUCOSE - RANDOM < 8HR FASTING (V77.1) (02/25/2005 2:35 PM CDT) athologist Signature Glucose 111 65 - 115 [facility] mg/dl Hours Fasting 2 hours [facility] Specimen Anatomical Collection Method Collection Time Receive d Time (Source) Location / / Volume Laterality 02/25/2005 2:35 PM 5 2:36 CDT PM CDT Alisha Kimball MD LAB_1 Performing Organization Address City/[facility] Code Phon e Number [facility] [phone] [facility] [address] [place] [phone] CO2 (02/25/2005 2:35 PM CDT) athologist Signature CO2 28 22 - 31 [facility] mmol/L Specimen Anatomical Collection Method Collection Time Receive d Time (Source) Location / / Volume Laterality 02/25/2005 2:35 PM 5 2:36 CDT PM CDT Alisha Kimball MD LAB_1 Performing Organization Address City/[facility] Phon e Number [facility] [phone] [facility] [address] [place] [phone] CREATININE / GFR (02/25/2005 2:35 PM [...] Kimball MD LAB_1 Performing Organization Address City/[facility]/ZIP Code Phon e Number [facility] [phone] [facility] [address] [place] [phone] CHLORIDE (02/25/2005 2:35 PM CDT) P athologist Signature Chloride 104 95 - 105 [facility] mmol/L Specimen Anatomical Collection Method Collection Time Receive d Time (Source) Location / / Volume Laterality 02/25/2005 2:35 PM 5 2:36 CDT PM CDT Alisha Kimball MD LAB_1 Performing Organization Address [facility] Phon e Number [facility] [phone] [facility] [address] [place] [phone] CALCIUM (02/25/2005 2:35 PM CDT) P athologist Signature Calcium 9.5 8.2 - 10.0 [facility] mg/dl Specimen Anatomical Collection Method Collection Time Receive d Time (Source) Location / / Volume Laterality 02/25/2005 2:35 PM 5 2:36 CDT PM CDT Alisha Kimball MD LAB_1 Performing Organization Address [facility] Phon e Number [facility] [phone] [facility] [address] [place] [phone] BUN (02/25/2005 2:35 PM CDT) P athologist Signature BUN 17 10 - 26 [facility] mg/dl Specimen Anatomical Collection Method Collection Time Receive d Time (Source) Location / / Volume Laterality 02/25/2005 2:35 PM 5 2:36 CDT PM CDT Alisha Kimball MD LAB_1 Performing Organization Address City/[facility]/ZIP Code Phon e Number [facility] [phone] [facility] [address] [place] [phone] ALT (SGPT) (02/25/2005 2:35 PM CDT) athologist Signature ALT (SGPT) 34 0 - 55 U/L [facility] Specimen Anatomical Collection Method Collection Time Receive d Time (Source) Location / / Volume Laterality 02/25/2005 2:35 PM 5 2:36 CDT PM CDT Alisha Kimball MD LAB_1 Performing Organization Address City/[facility] Phon e Number [facility] [phone] [facility] [address] [place] [phone] AST (02/25/2005 2:35 PM CDT) athologist Signature AST (SGOT) 16 <45 U/L [facility] Specimen Anatomical Collection Method Collection Time Receive d Time (Source) Location / / Volume Laterality 02/25/2005 2:35 PM 5 2:36 CDT PM CDT Alisha Kimball MD LAB_1 Performing Organization Address City/[facility] Phon e Number [facility] [phone] [phone] URINE CULTURE IF (02/25/2005 1:40 PM CDT) [facility] gist Method Time Signature Urine Cult If UC Not [facility] Indicated Specimen Anatomical Collection Method Collection Time Receive d Time (Source) Location / / Volume Laterality 02/25/2005 1:40 PM 5 1:41 CDT PM CDT Alisha Kimball MD LAB_1 Performing Organization Address [facility] Phon e Number [facility] [phone] [phone] UA MICRO IF (02/25/2005 1:40 PM CDT) [facility] gist Method Time Signature Appr Yellow [facility] Appr Clear [facility] Sp Gr 1.025 1.005 [...] Number [facility] [phone] [facility] [address] [phone] documented in this encounter Visit Diagnoses Diagnosis Urinary frequency - Primary Rash and other nonspecific skin eruption Elevated blood pressure reading without diagnosis of hypertension documented in this encounter Care Teams Credit Risk Officer Relationship Specialty Start Date End Date Miky Sultana MD PCP - General 09/21/01 07/07/05 [address] [place] [address] documented as of this encounter
--- OUTSIDE RECORDS SUMMARY | 2022-06-10 14:30 | XMS_ITS | Encounter Summary ---
:1955 Author Organization [employer] Address [address] [place] [address] Care Team Providers Name Role Phone Luis Pierce MD Primary Care Provider Unavailable Reason for Visit Reason Comments PAIN, FOOT VIA INTERFACE Encounter Details Date Type Department Care Team Description 02/17/2000 Office Visit [facility] Anam Mosquera DPM PAIN IN LIMB Surgery/Podiatry [address] [place], [place] [address] (Wo rk) Social History [...] limb documented in this encounter Care Teams Field Artillery Targeting Technician Relationship Specialty Start Date End Date Luis Pierce MD PCP - General 05/27/1998 documented as of this encounter
--- OUTSIDE RECORDS SUMMARY | 2022-06-10 14:30 | XMS_ITS | Encounter Summary ---
:1955 Author Organization [facility] Address [address] [place] [address] Care Team Providers Name Role Phone Alisha Kimball MD Primary Care Provider Reason for Referral Specialty Diagnoses / Procedures Referred By Contact Refer red To Contact Mauro Keyes MD [address] [place] [address] Referral ID Status Reason Start Date Expiration Date Visits Requ ested Visits Authorized Specialty Diagnoses / Procedures Referred By Contact Refer red To Contact Mauro Keyes MD [address] [place] [address] Referral ID Status Reason Start Date Expiration Date Visits Requ ested Visits Authorized Reason for Visit Reason Comments RASH also cut on leg in Jul. Encounter Details Date Type Department Care Team Description 11/17/2005 Office Visit [facility] Mauro Keyes F SKIN ERUPT NEC (Primary Dx); Timbo Amos MD SCREENING MAMM-MAILG NEOPL NEC; [address] [place] [address] [place] [address] [phone] Social History Tobacco Use Types Packs/Day Years [...] screening mammogram Routine general medical [facility] Routine general medical examination at [facility] care facility documented in this encounter Care Teams Machine Guide Base Winder Relationship Specialty Start Date End Date Alisha Kimball MD PCP - General 07/08/05 [address] [place] [address] documented as of this encounter
--- OUTSIDE RECORDS SUMMARY | 2022-06-10 14:30 | XMS_ITS | Encounter Summary ---
:1955 Author Organization [facility] Address [address], [place] [address] Care Team Providers Name Role Phone Luis Pierce MD Primary Care Provider Unavailable Encounter Details Date Type Department Care Team Description 11/22/2000 Orders Only [facility] Miky Salinas MD [address] [place] [address] [place] [address] [phone] (Wo rk) Social History Tobacco Use Types Packs/Day Years Used Date Smoking Tobacco: Never Assessed Sex Assigned at Date Recorded Not on file documented as of this encounter Plan of Treatment Not on filedocumented as of this encounter Visit Diagnoses Not on filedocumented in this encounter Care Teams Teletypewriter Operator Relationship Specialty Start Date End Date Luis Pierce MD PCP - General 05/27/1998 documented as of this encounter
--- OUTSIDE RECORDS SUMMARY | 2022-06-10 14:30 | XMS_ITS | Encounter Summary ---
:1955 Author Organization [employer] Address [address] [place] [address] Care Team Providers Name Role Phone Carroll Avalos MD Primary Care Provider Reason for Visit Reason Comments LAB RESULTS positive parapertussis DNA Encounter Details Date Type Department Care Team Description 07/09/2005 Telephone [facility] Carroll Avalos, LAB RESU LTS (positive Practice parapertussis DNA) 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 Pt. uses [facility] pharmacy. Has allergy to Sulfa. >> KRYSTYNA GARCÍA Fri Jul 17, 2005 10:57 AM 10:50 AM [facility] again-see encounter note. Pt Tx on visit. Krystyna García RN >> CARROLL AVALOS Gloria Jul 09, 2005 1:21 PM Called Jackie at [facility]. She recommended treating the patient but no prophylaxi s for contacts. Unable to reach the patient and message left at home to call back. Office number lety conroy is a fax number. Carroll Avalos MD documented in this encounter Plan of Treatment Not on filedocumented as of this encounter Visit Diagnoses Not on filedocumented in this encounter Care Teams Account Collector Relationship Specialty Start Date End Date Carroll Avalos MD PCP - General 07/08/05 [address] [place] [address] documented as of this encounter
--- OUTSIDE RECORDS SUMMARY | 2022-06-10 14:30 | XMS_ITS | Encounter Summary ---
:1955 Author Organization [facility] Address [address] [place] [address] Care Team Providers Name Role Phone Luis Pierce MD Primary Care Provider Unavailable Encounter Details Date Type Department Care Team Description 08/18/2001 Orders Only [facility] Hiram Romero MD [address] [place] [address] [place] [address] [phone] (Wo rk) Social History Tobacco Use Types Packs/Day Years Used Date Smoking Tobacco: Never Assessed Sex Assigned at Date Recorded Not on file documented as of this encounter Plan of Treatment Not on filedocumented as of this encounter Visit Diagnoses Not on filedocumented in this encounter Care Teams Bilingual Branch Manager Relationship Specialty Start Date End Date Luis Pierce MD PCP - General 05/27/1998 documented as of this encounter
--- OUTSIDE RECORDS SUMMARY | 2022-06-10 14:30 | XMS_ITS | Encounter Summary ---
:1955 Author Organization [facility] Address [address] [place] [address] Care Team Providers Name Role Phone Alisha Kimball MD Primary Care Provider Encounter Details Date Type Department Care Team Description 01/08/2006 Orders Only [facility] Mammogram I, Sp S CREENING MAMM-MAILG Mammography NEOPL NEC (Primary [address]) [place], [place] [id number] Social History Tobacco Use Types Packs/Day Years [...] second read. No radiographic evidence for darius goldsimth. No change compared to 05/16/98. Luis Mcgarry MD A cc: Radiology SP Alisha Kimball MD Alisha Kimball MD RAD_BI documented in this encounter Visit Diagnoses Diagnosis Other screening mammogram - Primary documented in this encounter Care Teams Skip Pitman Relationship Specialty Start Date End Date Alisha Kimball MD PCP - General 07/08/05 [address] [place] [address] documented as of this encounter
--- OUTSIDE RECORDS SUMMARY | 2022-06-10 14:30 | XMS_ITS | Encounter Summary ---
:1955 Author Organization [facility] Address [address], [place] [address] Care Team Providers Name Role Phone Miky [...] on filedocumented in this encounter Care Teams Hospital Nurse Relationship Specialty Start Date End Date Miky Sultana MD PCP - General 09/21/01 07/07/05 [address] [place] [address] documented as of this encounter
--- OUTSIDE RECORDS SUMMARY | 2022-06-10 14:30 | XMS_ITS | Encounter Summary ---
:1955 Author Organization [email or web address] Address [address] [place] [address] Care Team Providers Name Role Phone Miyk Sultana MD Primary Care Provider Encounter Details Date Type Department Care Team Description 12/01/2002 Office Visit [facility] Juan Daniel, EYE & VISION EXAMINATION; [address] RAJEEV Chapin [place]OP[place]; [place] [address] [place] [phone] [place], [place] [address] Social History Tobacco Use [...] Presbyopia documented in this encounter Care Teams Trim And Burr Operator Relationship Specialty Start Date End Date Miky Sultana MD PCP - General 09/21/01 07/07/05 [address] [place] [address] documented as of this encounter
--- OUTSIDE RECORDS SUMMARY | 2022-06-10 14:30 | XMS_ITS | Encounter Summary ---
:1955 Author Organization [facility] Address [address], [place] [address] Care Team Providers Name Role Phone Luis Pierce MD Primary Care Provider Unavailable Encounter Details Date Type Department Care Team Description 08/09/[address] [facility]ac Miky Salinas MD [address] [place] [address] [place] [address] [phone] (Wo rk) Social History Tobacco Use Types Packs/Day Years Used Date Smoking Tobacco: Never Assessed Sex Assigned at Date Recorded Not on file documented as of this encounter Plan of Treatment Not on filedocumented as of this encounter Visit Diagnoses Not on filedocumented in this encounter Care Teams Outside Operator Relationship Specialty Start Date End Date Luis Pierce MD PCP - General 05/27/1998 documented as of this encounter
--- OUTSIDE RECORDS SUMMARY | 2022-06-10 14:30 | XMS_ITS | Encounter Summary ---
:1955 Author Organization [facility] Address [address], [place] [address] Care Team Providers Name Role Phone Luis Pierce MD Primary Care Provider Unavailable Encounter Details Date Type Department Care Team Description 01/17/2001 Office Visit [facility] Miky Sultana MD INT DERANGEMENT KN[facility] Practice [address] [facility] [address] [place] [address] [place] [address] [phone] Social History Tobacco Use Types Packs/Day Years [...] knee documented in this encounter Care Teams Driftman Relationship Specialty Start Date End Date Luis Pierce MD PCP - General 05/27/1998 documented as of this encounter
--- OUTSIDE RECORDS SUMMARY | 2022-06-10 14:30 | XMS_ITS | Encounter Summary ---
:1955 Author Organization [employer] Address [address] [place] [address] Care Team Providers Name Role Phone Luis Pierce MD Primary Care Provider Unavailable Reason for Visit Reason Comments BACK PAIN VIA INTERFACE Encounter Details Date Type Department Care Team Description 12/18/1999 Office Visit [facility] Michele ury LOW BACK PAIN(ACUTE)<6 WEEKS ; [address] [place] [address] Social History Tobacco Use Types [...] no bacteria. A: Low back pain. P: Pawf-uxy-zcxdryr ibuprofen 800 mg three times a day. [...] examination documented in this encounter Care Teams Ironer Or Presser Relationship Specialty Start Date End Date Luis Pierce MD PCP - General 05/27/1998 documented as of this encounter
--- OUTSIDE RECORDS SUMMARY | 2022-06-10 14:30 | XMS_ITS | Encounter Summary ---
:1955 Author Organization [facility] Address [address] [place] [address] Care Team Providers Name Role Phone Alisha Kimball MD Primary Care Provider Encounter Details Date Type Department Care Team Description 05/03/2000 Orders Only [facility] [address] [place], [place] [phone] Social History Tobacco Use Types Packs/Day Years Used Date Smoking Tobacco: Never Assessed Sex Assigned at Date Recorded Not on file documented as of this encounter Plan of Treatment Not on filedocumented as of this encounter Procedures Procedure Name Priority Date/Time Associated Diagnosis Comme nts ACCUCHECK GLU Waiting 05/03/2000 6:54 PM Results for this RANDOM <8HR FAST FLUE GAS ANALYST procedure a re in (WAITING) the results section. UA WITH MICRO Waiting 05/03/2000 6:54 PM Results for this FLUE GAS ANALYST procedure are i n the results section. ESR Waiting 05/03/2000 6:54 PM Results f or this FLUE GAS ANALYST procedure are i n the results section. documented in this encounter Results ESR (05/03/2000 6:54 PM FLUE GAS ANALYST) P athologist Signature ESR 12 0 - 20 [facility] mm/hr Specimen Anatomical Collection Method Collection Time Receive d Time (Source) Location / / Volume Laterality 05/03/2000 6:54 PM 0 6:55 FLUE GAS ANALYST PM FLUE GAS ANALYST Full Range [facility] LAB_1 Performing Organization Address City/State/ZIP Code Phon e Number [facility] [phone] [facility] [address] [phone] UA WITH MICRO (05/03/2000 6:54 PM FLUE GAS ANALYST) P athologist Signature Appr Yellow [facility] Appr [...] Volume Laterality 05/03/2000 6:54 PM 0 6:55 FLUE GAS ANALYST PM FLUE GAS ANALYST Full Range [employer] LAB_1 Performing Organization Address City/[facility] Code Phon e Number [employer] [phone] [facility] [address] [place] [phone] ACCUCHECK GLU RANDOM <8HR FAST WAITING (05/03/2000 6:54 PM FLUE GAS ANALYST) Component Value Ref Test Analysis Performed At Patholo gist Range Method Time Signature Glucose, bG 92 65 - 115 [facility] Strip mg/dl Glucose, bG Semi-quantitative result (bG) may be [facility] 5-10% lower than quantitative result. Hours Fasting 2 hours [facility] Specimen Anatomical Collection Method Collection Time Receive d Time (Source) Location / / Volume Laterality 05/03/2000 6:54 PM 0 6:55 FLUE GAS ANALYST PM FLUE GAS ANALYST Full Range [employer] LAB_1 Performing Organization Address [facility] Phon e Number [employer] [phone] [employer] [address] [phone] documented in this encounter Visit Diagnoses Not on filedocumented in this encounter Care Teams Automation Consultant Relationship Specialty Start Date End Date Alisha Kimball MD PCP - General 07/08/05 [address] [place] [address] documented as of this encounter
--- OUTSIDE RECORDS SUMMARY | 2022-06-10 14:30 | XMS_ITS | Encounter Summary ---
:1955 Author Organization [facility] Address [address] [place] [address] Care Team Providers Name Role Phone Alisha Kimball MD Primary Care Provider Reason for Visit Reason Onset Date Comments COUGH 07/08/2005 cough Encounter Details Date Type Department Care Team Description 07/08/2005 Telephone [facility] Miky Salinas MD COUGH (cough) [address] [place] [address] [place] [address] [phone] (Wo rk) Social History Tobacco Use Types Packs/Day Years Used Date Smoking Tobacco: Never Alcohol Use Standard Drinks/Week Comments Not Asked 0 (1 standard drink = 0.6 oz pure alcoho l) Sex Assigned at Date Recorded Not on file documented as of this encounter Nursing Notes 07/08/2005 11:59 PM ASSOCIATE LOAN OFFICER >> JORGE PONCE Wed Jul 08, 2005 [...] on filedocumented in this encounter Care Teams Server Manager Relationship Specialty Start Date End Date Alisha Kimball MD PCP - General 07/08/05 [address] [place] [address] documented as of this encounter
--- OUTSIDE RECORDS SUMMARY | 2022-06-10 14:30 | XMS_ITS | Encounter Summary ---
:1955 Author Organization [facility] Address [address] [place] [address] Care Team Providers Name Role Phone Luis [...] cc: Radiology [place] Full Range I [employer] RELATIONS PROFESSOR documented in this encounter Plan of Treatment Not on filedocumented as of this encounter Procedures Procedure Name Priority Date/Time Associated Diagnosis Comme nts RADEX SPI LUMBOSAC 05/03/2000 12:00 AM Re sults for this 2/3 VIEWS RACE RELATIONS PROFESSOR procedure are i n the results section. documented in this encounter Results L-SPINE 2-3 VIEWS (05/03/2000 12:00 AM RACE RELATIONS PROFESSOR) Anatomical Region Laterality Modality Other Specimen (Source) [...] cc: Radiology [place] Full Range I [facility] Full Range [facility] RAD_1 documented in this encounter Visit Diagnoses Not on filedocumented in this encounter Care Teams Cargo Router Relationship Specialty Start Date End Date Luis Pierce MD PCP - General 05/27/1998 documented as of this encounter
--- OUTSIDE RECORDS SUMMARY | 2022-06-10 14:30 | XMS_ITS | Encounter Summary ---
:1955 Author Organization [facility] Address [address] [place] [address] Care Team Providers Name Role Phone Alisha Kimball MD Primary Care Provider Encounter Details Date Type Department Care Team Description 11/25/2005 Telephone [facility] Mari Luna MD [address] [facility] [place], [place] [address] [address] [address] [place], [place] [address] (Wo rk) Social History [...] on filedocumented in this encounter Care Teams Car Shifter Relationship Specialty Start Date End Date Alisha Kimball MD PCP - General 07/08/[address] [place], [place] [phone] documented as of this encounter
--- OUTSIDE RECORDS SUMMARY | 2022-06-10 14:30 | XMS_ITS | Encounter Summary ---
:1955 Author Organization [employer] Address [address], [place] [address] Care Team Providers Name Role Phone Alisha Kimball MD Primary Care Provider Reason for Visit Reason Comments COUGH for several days Encounter Details Date Type Department Care Team Description 07/08/2005 Office Visit [facility] Alisha Kimball, COUGH (P rimary Dx); Practice MD SCREEN FOR LIPID DISORDERS [address] [place] [address] [place] [address] [phone] Social History Tobacco Use Types Packs/Day Years Used Date Smoking Tobacco: Never Alcohol Use Standard Drinks/Week Comments Not Asked 0 (1 standard drink = 0.6 oz pure alcoho l) Sex Assigned at Date Recorded Not on file documented as of this encounter Last Filed Vital Signs Vital Sign Reading Time Taken Comments Blood Pressure - - Pulse 78 07/08/2005 3:51 PM OPERATIONS TECH Temperature 37 ??C (98.6 ??F) 07/08/2005 3:51 PM OPERATIONS TECH Respiratory Rate 18 07/08/2005 3:51 PM OPERATIONS TECH Oxygen Saturation 97% 07/08/2005 3:51 PM OPERATIONS TECH Inhaled Oxygen Concentration - - Weight 83.9 kg (185 lb) 07/08/2005 3:51 PM OPERATIONS TECH Height - - Body Mass Index - [...] breathing, or any other concerns. P cc: ATIONS TECH documented in this encounter Plan of Treatment Not on filedocumented as of this encounter Procedures Procedure Name Priority Date/Time Associated Comments Diagnosis BORDETELLA PERTUSSIS Routine 07/08/2005 4:28 PM Cough R esults for this / PARAPERTUSSIS, OPERATIONS TECH procedure a re in MOLECULAR DETECTION the resu lts section. documented in this encounter Results (ABNORMAL) B PERTUSSIS/PARA,PCR (07/08/2005 4:28 PM OPERATIONS TECH) Component Value Ref Test Analysis Performed At [facility] Method Time Signature B Positive - [facility] pertussis/pa BORDETELLA ra PCR PARAPERTUSSIS DNA DETECTED (A) Comment: Negative - No Bordetella pertus sis DNA Detected Comment Referred to Straight Up English Specimen Anatomical Collection Method Collection Time Receive d Time (Source) Location / / Volume Laterality 07/08/2005 4:28 PM 6 4:29 OPERATIONS TECH PM OPERATIONS TECH Alisha Kimball MD LAB_1 Performing Organization Address City/State/ZIP Code Phon e Number [facility] [employer] [phone] [facility] [address] [phone] documented in this encounter Visit Diagnoses Diagnosis Cough - Primary Screening for lipoid disorders documented in this encounter Care Teams Regrinder Relationship Specialty Start Date End Date Alisha Kimball MD PCP - General 07/08/05 [address] [place] [address] documented as of this encounter
--- OUTSIDE RECORDS SUMMARY | 2022-06-10 14:30 | XMS_ITS | Encounter Summary ---
:1955 Author Organization [facility] Address [address] [address] Care Team Providers Name Role Phone Alisha Kimball MD Primary Care Provider Encounter Details Date Type Department Care Team Description 11/27/2005 Office Visit [facility] Mari Pickens MD [facility] [address] [place], [place] [address] [address] [address] [place], [place] [address] (Wo rk) Social History [...] left leg. She is traveling out to [place] to attend her son's graduation within the [...] icus documented in this encounter Care Teams Radial Saw Operator Relationship Specialty Start Date End Date Alisha Kimball MD PCP - General 07/08/05 [address] [place] [address] documented as of this encounter
--- OUTSIDE RECORDS SUMMARY | 2022-06-10 14:30 | XMS_ITS | Encounter Summary ---
:1955 Author Organization [facility] Address [address] [place] [address] Care Team Providers Name Role Phone Miky Sultana MD Primary Care Provider Encounter Details Date Type Department Care Team Description 02/25/2005 Notes/Orders [place] [facility] Alisha Kimball, URINARY FREQUENCY; Practice ELEV BL PRES W/O HYPERTN [address] [facility]. [address] [place] [address] [place], [place] [phone] Social History Tobacco Use Types Packs/Day Years [...] Signature Anion Gap 8 7 - 17 [facility] (calc.) mmol/L Specimen Anatomical Collection Method Collection Time Receive d Time (Source) Location / / Volume Laterality 02/25/2005 2:35 PM 5 2:36 CDT PM CDT Alisha Kimball MD LAB_1 Performing Organization Address City/State/ZIP Code Phon e Number [facility] [phone] [facility] [address] [place] [address] HEMOGRAM/PLTS (02/25/2005 2:35 PM CDT) athologist Signature WBC 8.5 4.0 - 11.0 [facility] k/ul RBC 4.58 4.0 - 5.2 [facility] M/ul Hemoglobin 13.9 12.0 - 16.0 [facility] g/dl HCT 40.0 36.0 - 46.0 [facility] % MCV 87.1 80 - 100 fl [facility] MCH 30.3 26 - 34 pg [facility] MCHC 34.8 32 - 36 % [facility] RDW 13.1 11.5 - 14.5 [facility] % Platelets 286 150 - 450 [facility] k/ul Specimen Anatomical Collection Method Collection Time Receive d Time (Source) Location / / Volume Laterality 02/25/2005 2:35 PM 5 2:36 CDT PM CDT Alisha Kimball MD LAB_1 Performing Organization Address [facility] Phon e Number [facility] [phone] [address] SODIUM (02/25/2005 2:35 PM CDT) athologist Signature Sodium 140 135 - 145 [facility] mmol/L Specimen Anatomical Collection Method Collection Time Receive d Time (Source) Location / / Volume Laterality 02/25/2005 2:35 PM 5 2:36 CDT PM CDT Alisha Kimball MD LAB_1 Performing Organization Address [facility] Phon e Number [facility] [phone] [phone] POTASSIUM (02/25/2005 2:35 PM CDT) athologist Signature Potassium 4.2 3.5 - 5.3 [facility] mmol/L Specimen Anatomical Collection Method Collection Time Receive d Time (Source) Location / / Volume Laterality 02/25/2005 2:35 PM 5 2:36 CDT PM CDT Alisha Kimball MD LAB_1 Performing Organization Address [facility]/State/ZIP Code Phon e Number [facility] [phone] [facility] [address] [address] GLUCOSE - RANDOM < 8HR FASTING (V77.1) (02/25/2005 2:35 PM CDT) athologist Signature Glucose 111 65 - 115 [facility] mg/dl Hours Fasting 2 hours [facility] Specimen Anatomical Collection Method Collection Time Receive d Time (Source) Location / / Volume Laterality 02/25/2005 2:35 PM 5 2:36 CDT PM CDT Alisha Kimball MD LAB_1 Performing Organization Address [facility] Phon e Number [facility] [phone] [facility] [address] [place] [address] CO2 (02/25/2005 2:35 PM CDT) athologist Signature CO2 28 22 - 31 [facility] mmol/L Specimen Anatomical Collection Method Collection Time Receive d Time (Source) Location / / Volume Laterality 02/25/2005 2:35 PM 5 2:36 CDT PM CDT Alisha Kimball MD LAB_1 Performing Organization Address City/[facility] Phon e Number [facility] [phone] [facility] [address] [place] [address] CREATININE / GFR (02/25/2005 2:35 PM [...] Organization Address City/State/ZIP Code Phon e Number [facility] [phone] [facility] [address] [address] CHLORIDE (02/25/2005 2:35 PM CDT) athologist Signature Chloride 104 95 - 105 [facility] mmol/L Specimen Anatomical Collection Method Collection Time Receive d Time (Source) Location / / Volume Laterality 02/25/2005 2:35 PM 200 5 2:36 CDT PM CDT Alisha Kimball MD LAB_1 Performing Organization Address City/[facility]/ZIP Code Phon e Number [facility] [phone] [facility] [address] [place] [address] CALCIUM (02/25/2005 2:35 PM CDT) athologist Signature Calcium 9.5 8.2 - 10.0 [facility] mg/dl Specimen Anatomical Collection Method Collection Time Receive d Time (Source) Location / / Volume Laterality 02/25/2005 2:35 PM 200 5 2:36 CDT PM CDT Alisha Kimball MD LAB_1 Performing Organization Address City/[facility]/ZIP Code Phon e Number [facility] [phone] [facility] [address] [place] [address] BUN (02/25/2005 2:35 PM CDT) athologist Signature BUN 17 10 - 26 [facility] mg/dl Specimen Anatomical Collection Method Collection Time Receive d Time (Source) Location / / Volume Laterality 02/25/2005 2:35 PM 200 5 2:36 CDT PM CDT Alisha Kimball MD LAB_1 Performing Organization Address City/[facility]/ZIP Code Phon e Number [facility] [phone] [facility] [address] [place] [phone] ALT (SGPT) (02/25/2005 2:35 PM CDT) athologist Signature ALT (SGPT) 34 0 - 55 U/L [facility] Specimen Anatomical Collection Method Collection Time Receive d Time (Source) Location / / Volume Laterality 02/25/2005 2:35 PM 5 2:36 CDT PM CDT Alisha Kimball MD LAB_1 Performing Organization Address [facility] Phon e Number [facility] [phone] [facility] [address] [place] [address] AST (02/25/2005 2:35 PM CDT) athologist Signature AST (SGOT) 16 <45 U/L [facility] Specimen Anatomical Collection Method Collection Time Receive d Time (Source) Location / / Volume Laterality 02/25/2005 2:35 PM 5 2:36 CDT PM CDT Alisha Kimball MD LAB_1 Performing Organization Address [facility] Phon e Number [facility] [phone] [phone] URINE CULTURE IF (02/25/2005 1:40 PM CDT) [facility] gist Method Time Signature Urine Cult If UC Not [facility] Indicated Specimen Anatomical Collection Method Collection Time Receive d Time (Source) Location / / Volume Laterality 02/25/2005 1:40 PM 5 1:41 CDT PM CDT Alisha Kimball MD LAB_1 Performing Organization Address [facility] Phon e Number [facility] [phone] [address] UA MICRO IF (02/25/2005 1:40 PM CDT) [facility] gist Method Time Signature Appr [...] Number [facility] [phone] [facility] [address] [place] [address] documented in this encounter Visit Diagnoses Diagnosis Urinary frequency Elevated blood pressure reading without diagnosis of hypertension documented in this encounter Care Teams Nurse Epidemiologist Relationship Specialty Start Date End Date Miky Sultana MD PCP - General 09/21/01 07/07/[address] [place] [address] [place] [address] documented as of this encounter
--- OUTSIDE RECORDS SUMMARY | 2022-06-10 14:30 | XMS_ITS | Encounter Summary ---
:1955 Author Organization [employer] [facility] Address [address] [place] [address] Care Team Providers Name Role Phone Luis Pierce MD Primary Care Provider Unavailable Encounter Details Date Type Department Care Team Description 08/02/2001 Office Visit [facility] Michele ury OTALGIA NOS; [address] ACUTE PHARYNGITIS(SORE THROA T); [place] [address] LABORATORY EXAMINATION [phone] Social History Tobacco Use Types Packs/Day Years [...] ASSESSMENT: Otalgia, viral. Acute pharyngitis, viral. PLAN: Hrxl-raf-huaogiv decongestant. IN SUMMARY: ACUTE PHARYNGITIS, OTALGIA cc: DINGS AND GROUNDS COORDINATOR documented in this encounter Plan of Treatment Not on filedocumented as of this encounter Visit Diagnoses Diagnosis Otalgia, unspecified Acute pharyngitis Laboratory examination documented in this encounter Care Teams Behavioral Sciences Instructor Relationship Specialty Start Date End Date Luis Pierce MD PCP - General 05/27/1998 documented as of this encounter
--- OUTSIDE RECORDS SUMMARY | 2022-06-10 14:30 | XMS_ITS | Encounter Summary ---
:1955 Author Organization [facility] Address [address] [place] [address] Care Team Providers Name Role Phone Luis Pierce MD Primary Care Provider Unavailable Encounter Details Date Type Department Care Team Description 08/18/2001 Office Visit [facility] Hiram Romero MD CONJUNCTIVITIS NOS [address] [place] [address] [place], [place] [phone] [address] Social History Tobacco Use Types Packs/Day Years [...] can follow-up. IN SUMMARY: eye symptoms cc: N BUILDING MATERIALS DESIGNER documented in this encounter Plan of Treatment Not on filedocumented as of this encounter Visit Diagnoses Diagnosis Conjunctivitis unspecified Conjunctivitis, unspecified documented in this encounter Care Teams Review Specialist Relationship Specialty Start Date End Date Luis Pierce MD PCP - General 05/27/1998 documented as of this encounter
--- OUTSIDE RECORDS SUMMARY | 2022-06-10 14:31 | XMS_ITS | Encounter Summary ---
:1955 Author Organization [facility] Address [address] [place] [address] Care Team Providers Name Role Phone Alisha Kimball MD Primary Care Provider Encounter Details Date Type Department Care Team Description 08/27/1999 Orders Only Miky Sultana MD [address] [facility] [place] [address] (Wo rk) Social History Tobacco Use Types Packs/Day Years Used Date Smoking Tobacco: Never Assessed Sex Assigned at Date Recorded Not on file documented as of this encounter Plan of Treatment Not on filedocumented as of this encounter Visit Diagnoses Not on filedocumented in this encounter Care Teams Civil Engineering Design Draftsperson Relationship Specialty Start Date End Date Alisha Kimball MD PCP - General 07/08/[address] [place], [place] [phone] documented as of this encounter
--- OUTSIDE RECORDS SUMMARY | 2022-06-10 14:31 | XMS_ITS | Encounter Summary ---
:1955 Author Organization [facility] Address [address] [place] [address] Care Team Providers Name Role Phone Luis Pierce MD Primary Care Provider Unavailable Encounter Details Date Type Department Care Team Description 12/12/1998 Office Visit Luis Lozano MD [address] [place] [address] (Wo rk) Social History Tobacco [...] on filedocumented in this encounter Care Teams Marketing Communications Manager Relationship Specialty Start Date End Date Luis Pierce MD PCP - General 05/27/1998 documented as of this encounter
--- OUTSIDE RECORDS SUMMARY | 2022-06-10 14:31 | XMS_ITS | Encounter Summary ---
:1955 Author Organization [facility] Address [address] [place] [address] Care Team Providers Name Role Phone Luis Pierce MD Primary Care Provider Unavailable Encounter Details Date Type Department Care Team Description 09/18/1998 Orders Only Francisco Gupta MD [address] [place], [place] [address] (Wo rk) Social History Tobacco Use Types Packs/Day Years Used Date Smoking Tobacco: Never Assessed Sex Assigned at Date Recorded Not on file documented as of this encounter Plan of Treatment Not on filedocumented as of this encounter Procedures Procedure Name Priority Date/Time Associated Diagnosis Comme nts URINE CULTURE Routine 09/18/1998 4:33 PM Results for this [facility]ENTER RECEPTION[facility] procedure are i n the results section . documented in this encounter Results URINE CULTURE (MIDSTREAM) (09/18/1998 4:33 PM CENTER RECEPTION[facility]) [facility] Method Time Signature Specimen Urine [facility] Description Special None [facility] Requests Culture No Growth [facility] After 1 Day Report Status Final [facility] Report Status [id number] [facility] Specimen Anatomical Collection Method Collection Time Receive d Time (Source) Location / / Volume Laterality 09/18/1998 4:33 PM 199 9 4:34 [facility]CEPT[facility] PM [facility] Francisco Gupta MD LAB_1 Performing Organization Address City/State/ZIP Code Phon e Number [facility] [place] [facility] [phone] [facility] [address] [phone] documented in this encounter Visit Diagnoses Not on filedocumented in this encounter Care Teams Seasonal Greenery Bundler Relationship Specialty Start Date End Date Luis Pierce MD PCP - General 05/27/1998 documented as of this encounter
--- OUTSIDE RECORDS SUMMARY | 2022-06-10 14:31 | XMS_ITS | Encounter Summary ---
:1955 Author Organization [employer] Address [address] [place] [address] Care Team Providers Name Role Phone Luis Pierce MD Primary Care Provider Unavailable Encounter Details Date Type Department Care Team Description 12/30/1998 Office Visit [facility] Emily Lei, ENURESIS NOS [address] PILLOWCASE FOLDER, IT SERVICE TECHNICIAN [place], [place] [id number] [facility] [phone] [place], [place] [address] (Wo rk) Social History [...] incontinence documented in this encounter Care Teams Cascara Bark Cutter Relationship Specialty Start Date End Date Luis Pierce MD PCP - General 05/27/1998 documented as of this encounter
--- OUTSIDE RECORDS SUMMARY | 2022-06-10 14:31 | XMS_ITS | Encounter Summary ---
:1955 Author Organization [facility] Address [address] [place] [address] Care Team Providers Name Role Phone Alisha [...] in this encounter Care Teams Entry Level Web Developer Relationship Specialty Start Date End Date Alisha Kimball MD PCP - General 07/08/[address] [place], [place] [phone] documented as of this encounter
--- OUTSIDE RECORDS SUMMARY | 2022-06-10 14:31 | XMS_ITS | Encounter Summary ---
:1955 Author Organization [facility] [facility] Address [address] [place] [address] Care Team Providers Name Role Phone Luis Pierce MD Primary Care Provider Unavailable Reason for Visit Reason Comments ANKLE PAIN VIA INTERFACE Encounter Details Date Type Department Care Team Description 10/04/1999 Orders [facility] SPRAIN/STRAIN OF ANKLE NOS; [address] [facility] LOWER LEG INJURY NOS [place], [place] [phone] Social History Tobacco Use Types Packs/Day Years [...] and recheck with her usual clinic, at [place], for follow-up care. A: Right ankle sprain. P: As above. IN SUMMARY: RIGHT ANKLE SPRAIN cc: ANALYSIS documented in this encounter Procedure Notes Brittney [...] cc: Radiology SP Full Range I Spucc ANALYSIS documented in this encounter Plan of Treatment Not on filedocumented as of this encounter Procedures Procedure Name Priority Date/Time Associated Diagnosis Comme nts RADEX ANKLE COMPL 10/04/1999 12:00 AM Lower Leg Injury Nos Results for this MINIMUM 3 VIEWS VP ANALYSIS procedure ar e in the results section. documented in this encounter Results ANKLE 3 VIEWS (10/04/1999 12:00 AM VP ANALYSIS) Anatomical Region Laterality Modality Other Specimen (Source) [...] foot documented in this encounter Care Teams Multiple Games Dealer Relationship Specialty Start Date End Date Luis Pierce MD PCP - General 05/27/1998 documented as of this encounter
--- OUTSIDE RECORDS SUMMARY | 2022-06-10 14:31 | XMS_ITS | Encounter Summary ---
:1955 Author Organization [facility] Address [address] [facility] [place] [address] Care Team Providers Name Role Phone Luis Pierce MD Primary Care Provider Unavailable Encounter Details Date Type Department Care Team Description 12/17/1998 Orders Only Hafsa Lei APRN, CNP [address] [place], [place] [address] (Wo rk) Social History [...] Component Value Ref Test Analysis Performed At [facility] Method Time Signature Specimen Urine [facility] Description Special Sensitivity [facility] Requests Culture No Growth [facility] After 1 Day Report Status Final [facility] Report Status [id number] [facility] Specimen Anatomical Collection Method Collection Time Receive d Time (Source) Location / / Volume Laterality 12/17/1998 4:36 PM 9 7:24 CDT PM CDT Emily Lei APRN, CNP LAB_1 Performing Organization Address City/State/ZIP Code Phon e Number [facility] [phone] [facility] [address] [place] [address] documented in this encounter Visit Diagnoses Not on filedocumented in this encounter Care Teams Audit Officer Relationship Specialty Start Date End Date Luis Pierce MD PCP - General 05/27/1998 documented as of this encounter
--- OUTSIDE RECORDS SUMMARY | 2022-06-10 14:31 | XMS_ITS | Encounter Summary ---
:1955 Author Organization [facility] Address [address] [place] [address] Care Team Providers Name Role Phone Luis Pierce MD Primary Care Provider Unavailable Encounter Details Date Type Department Care Team Description 09/01/1998 Office Visit Francisco Gupta MD [address] [place], [place] [address] (Wo rk) Social History [...] of pyelonephritis, follow up as needed. cc: GE EXPERT documented in this encounter Plan of Treatment Not on filedocumented as of this encounter Visit Diagnoses Not on filedocumented in this encounter Care Teams Trash Man Relationship Specialty Start Date End Date Luis Pierce MD PCP - General 05/27/1998 documented as of this encounter
--- OUTSIDE RECORDS SUMMARY | 2022-06-10 14:31 | XMS_ITS | Encounter Summary ---
:1955 Author Organization [facility] Address [address] [place] [address] Care Team Providers Name Role Phone Luis Pierce MD Primary Care Provider Unavailable Encounter Details Date Type Department Care Team Description 12/12/1998 Orders Only Epic, [place] [address] Social History Tobacco Use Types Packs/Day Years [...] URINE CULTURE IF (12/12/1998 6:29 PM CDT) [facility] Method Time Signature Urine Cult If UC Not [facility] Indicated Specimen Anatomical Collection Method Collection Time Receive d Time (Source) Location / / Volume Laterality 12/12/1998 6:29 PM 199 9 6:30 CDT PM CDT Narrative [facility] - 12/12/1998 6:29 PM CDT Ordered by [facility] Internal Processing Epic LAB_1 Performing Organization Address City/State/ZIP Code Phon e Number [facility] [phone] [facility] [address] [phone] UA WITH MICRO (12/12/1998 6:29 [...] Squamous Bact 0 [facility] Casts 0 /lpf [facility] Specimen Anatomical Collection Method Collection Time Receive d Time (Source) Location / / Volume Laterality 12/12/1998 6:29 PM 9 6:30 CDT PM CDT Narrative [facility] 12/12/1998 6:29 PM CDT Ordered by [facility] Internal Processing Epic LAB_1 Performing Organization Address City/State/ZIP Code Phon e Number [facility] [phone] [facility] [address] [phone] documented in this encounter Visit Diagnoses Not on filedocumented in this encounter Care Teams Soap Worker Relationship Specialty Start Date End Date Luis Pierce MD PCP - General 05/27/1998 documented as of this encounter
--- OUTSIDE RECORDS SUMMARY | 2022-06-10 14:31 | XMS_ITS | Encounter Summary ---
:1955 Author Organization [facility] Address [address] [place] [address] Care Team Providers Name Role Phone Alisha Kimball MD Primary Care Provider Encounter Details Date Type Department Care Team Description 12/12/1998 Orders Only So Li MD [address] [place], [place] [address] (Wo rk) Social History Tobacco Use Types Packs/Day Years Used Date Smoking Tobacco: Never Assessed Sex Assigned at Date Recorded Not on file documented as of this encounter Plan of Treatment Not on filedocumented as of this encounter Visit Diagnoses Not on filedocumented in this encounter Care Teams Rn Integrity Relationship Specialty Start Date End Date Alisha Kimball MD PCP - General 07/08/[address] [place], [place] [phone] documented as of this encounter
--- OUTSIDE RECORDS SUMMARY | 2022-06-10 14:31 | XMS_ITS | Encounter Summary ---
:1955 Author Organization [facility] Address [address] [place] [address] Care Team Providers Name Role Phone Luis Pierce MD Primary Care Provider Unavailable Encounter Details Date Type Department Care Team Description 12/12/1998 Orders Only Epic, [place] [address] Social History Tobacco Use Types Packs/Day Years [...] URINE CULTURE (MIDSTREAM) (12/12/1998 7:06 PM CDT) [facility] Method Time Signature Specimen Urine [facility] Description Special None [facility] Requests Culture No Growth [facility] After 1 Day Report Status Final [facility] Report Status [id number] [facility] Specimen Anatomical Collection Method Collection Time Receive d Time (Source) Location / / Volume Laterality 12/12/1998 7:06 PM 199 9 7:07 CDT PM CDT [facility]ative [facility] 12/12/1998 7:06 PM CDT Ordered by [facility] Internal Processing Epic LAB_1 Performing Organization Address City/State/ZIP Code Phon e Number [facility] [phone] [facility] [address] [phone] documented in this encounter Visit Diagnoses Not on filedocumented in this encounter Care Teams Neck Pinner Relationship Specialty Start Date End Date Luis Pierce MD PCP - General 05/27/1998 documented as of this encounter
--- OUTSIDE RECORDS SUMMARY | 2022-06-10 14:31 | XMS_ITS | Encounter Summary ---
:1955 Author Organization [employer] Address [address] [place] [address] Care Team Providers Name Role Phone Luis Pierce MD Primary Care Provider Unavailable Encounter Details Date Type Department Care Team Description 12/17/1998 Office Visit Hafsa Lei, DISPLAY AND BANNER DESIGNER, AUTOMATION AND CONTROLS INSTRUCTOR [address] [place], [place] [address] (Wo rk) Social History [...] on filedocumented in this encounter Care Teams Health And Wellness Instructor Relationship Specialty Start Date End Date Luis Pierce MD PCP - General 05/27/1998 documented as of this encounter
--- OUTSIDE RECORDS SUMMARY | 2022-06-10 14:31 | XMS_ITS | Encounter Summary ---
:1955 Author Organization [facility] Address [address] [place] [address] Care Team Providers Name Role Phone Luis Pierce MD Primary Care Provider Unavailable Encounter Details Date Type Department Care Team Description 09/30/1998 Office Visit [facility] and Regan Pierce rt SURGERY FOLLOW-UP Gynecology MD Cristina [address] [place] [address] Social History Tobacco Use Types [...] earlier on a as needed basis. cc: OR CLIMATE ADVISOR documented in this encounter Plan of Treatment Not on filedocumented as of this encounter Visit Diagnoses Diagnosis Follow-up examination following surgery documented in this encounter Care Teams Slot Machine Department Floorperson Relationship Specialty Start Date End Date Luis Pierce MD PCP - General 05/27/1998 documented as of this encounter
--- OUTSIDE RECORDS SUMMARY | 2022-06-10 14:31 | XMS_ITS | Encounter Summary ---
:1955 Author Organization [facility] Address [address] [place] [address] Care Team Providers Name Role Phone Luis Pierce MD Primary Care Provider Unavailable Encounter Details Date Type Department Care Team Description 09/03/1998 Office Visit Deepthi Ashraf M D [address] [place] [id number] (Wo rk) Social History Tobacco Use [...] within the next week. IN SUMMARY: RASH T NURSE MANAGER documented in this encounter Plan of Treatment Not on filedocumented as of this encounter Visit Diagnoses Not on filedocumented in this encounter Care Teams Folded Towel Machine Operator Relationship Specialty Start Date End Date Luis Pierce MD PCP - General 05/27/1998 documented as of this encounter
--- OUTSIDE RECORDS SUMMARY | 2022-06-10 14:31 | XMS_ITS | Encounter Summary ---
:1955 Author Organization [facility] Address [address] [place] [address] Care Team Providers Name Role Phone Luis [...] 09/30/1998 11:03 AM Res ults for this BUS BOY procedure are i n the results section. documented in this encounter Results (ABNORMAL) HEMOGLOBIN, BLOOD (09/30/1998 11:03 AM BUS BOY) [facility] Method Time Signature Hemoglobin 11.9 (L) 12.0 - [facility] 16.0 g/dl Hemoglobin Result [facility] Checked Specimen Anatomical Collection Method Collection Time Receive d Time (Source) Location / / Volume Laterality 09/30/1998 11:03 09/30/1998 AM BUS BOY 11:04 AM BUS BOY Luis Pierce MD LAB_1 Performing Organization Address City/State/ZIP Code Phon e Number [facility] [phone] [facility] [address] [address] documented in this encounter Visit Diagnoses Not on filedocumented in this encounter Care Teams Adjunct English Instructor Relationship Specialty Start Date End Date Luis Pierce MD PCP - General 05/27/1998 documented as of this encounter
--- OUTSIDE RECORDS SUMMARY | 2022-06-10 14:32 | XMS_ITS | Encounter Summary ---
:1955 Author Organization [facility] Address [address], [place] [address] Care Team Providers Name Role Phone Alisha [...] filedocumented in this encounter Care Teams Mold Stripper Relationship Specialty Start Date End Date Alisha Kimball MD PCP - General 07/08/[address] [place] [address] documented as of this encounter
--- OUTSIDE RECORDS SUMMARY | 2022-06-10 14:32 | XMS_ITS | Encounter Summary ---
:1955 Author Organization [facility] Address [address] [place] [address] Care Team Providers Name Role Phone Luis Pierce MD Primary Care Provider Unavailable Encounter Details Date Type Department Care Team Description 07/16/1998 Office Visit [facility] EMILY Pierce MENSTRUATION; and Gynecology Luis Evans MD FEMALE STRESS INCONTINENCE [address] [place], [place] [id number] Social History Tobacco Use Types Packs/Day Years [...] time of her outpatient work up. cc: ECTIVE THERAPY AIDE TEACHER documented in this encounter Plan of Treatment Not on filedocumented as of this encounter Visit Diagnoses Diagnosis Excessive or frequent menstruation Female stress incontinence documented in this encounter Care Teams Clinical Project Coordinator Relationship Specialty Start Date End Date Luis Pierce MD PCP - General 05/27/1998 documented as of this encounter
--- OUTSIDE RECORDS SUMMARY | 2022-06-10 14:32 | XMS_ITS | Encounter Summary ---
:1955 Author Organization [facility] Address [address] [place] [address] Care Team Providers Name Role Phone Luis Pierce MD Primary Care Provider Unavailable Encounter Details Date Type Department Care Team Description 08/27/1998 Office Visit [facility] ANDREEA Pierce TPART and Gynecology Luis Evans MD FOLLOW-UP [address] [place] [address] Social History Tobacco Use Types [...] suture removal and repeat wound check. cc: SOFTWARE ARCHITECT documented in this encounter Plan of Treatment Not on filedocumented as of this encounter Visit Diagnoses Diagnosis Routine follow-up documented in this encounter Care Teams Freight Service Inspector Relationship Specialty Start Date End Date Luis Pierce MD PCP - General 05/27/1998 documented as of this encounter
--- OUTSIDE RECORDS SUMMARY | 2022-06-10 14:32 | XMS_ITS | Encounter Summary ---
:1955 Author Organization [facility] Address [address] [place] [address] Care Team Providers Name Role Phone Miky Sultana MD Primary Care Provider Encounter Details Date Type Department Care Team Description 05/13/1998 Office Visit [facility] GAB Pierce EXAMINATION; and Gynecology Luis Evans MD EXCESSIVE MENSTRUATION; [address] [place]; [place] [address] FEMALE STRESS INCONTINENCE [phone] Social History Tobacco Use Types Packs/Day Years [...] be undertaken for her urinary incontinence. cc: ESS LABORATORY SPECIALIST documented in this encounter Plan of Treatment Not on filedocumented as of this encounter Visit Diagnoses Diagnosis Gynecological examination Excessive or frequent menstruation Metrorrhagia Female stress incontinence documented in this encounter Care Teams Architectural Job Captain Relationship Specialty Start Date End Date iMky Sultana MD PCP - General 06/17/1996 05/26/[address] [place] [address] documented as of this encounter
--- OUTSIDE RECORDS SUMMARY | 2022-06-10 14:32 | XMS_ITS | Encounter Summary ---
:1955 Author Organization [facility] Address [address] [place] [address] Care Team Providers Name Role Phone Alisha [...] filedocumented in this encounter Care Teams Production Estimator Relationship Specialty Start Date End Date Alisha Kimball MD PCP - General 07/08/[address] [place], [place] [id number] documented as of this encounter
--- OUTSIDE RECORDS SUMMARY | 2022-06-10 14:32 | XMS_ITS | Encounter Summary ---
:1955 Author Organization [facility] Address [address] [place] [address] Care Team Providers Name Role Phone Luis Pierce MD Primary Care Provider Unavailable Encounter Details Date Type Department Care Team Description 08/17/1998 Office Visit Francisco Gupta MD [address] [place], [place] [address] (Wo rk) Social History [...] the hysterectomy. IN SUMMARY: OTITIS MEDIA cc: ER BRAKE LININGS documented in this encounter Plan of Treatment Not on filedocumented as of this encounter Visit Diagnoses Not on filedocumented in this encounter Care Teams Dope House Operator Helper Relationship Specialty Start Date End Date Luis Pierce MD PCP - General 05/27/1998 documented as of this encounter
--- OUTSIDE RECORDS SUMMARY | 2022-06-10 14:32 | XMS_ITS | Encounter Summary ---
:1955 Author Organization [facility] Address [address] [place] [address] Care Team Providers Name Role Phone Luis Pierce MD Primary Care Provider Unavailable Encounter Details Date Type Department Care Team Description 08/19/1998 Office Visit [facility] and Regan Pierce rt SURGERY FOLLOW-UP Gynecology MD Cristina [address] [place] [address] Social History Tobacco Use Types Packs/Day Years Used Date Smoking Tobacco: Never Assessed Sex Assigned at Date Recorded Not on file documented as of this encounter Progress Notes Luis Pierce - 08/19/1998 12:00 AM CASH APPLICATIONS ANALYST Pt is a 43-year-old para 3004 who [...] see pre-operative evaluation for further details. cc: APPLICATIONS ANALYST documented in this encounter Plan of Treatment Not on filedocumented as of this encounter Visit Diagnoses Diagnosis Follow-up examination following surgery documented in this encounter Care Teams Die Maker Apprentice Relationship Specialty Start Date End Date Luis Pierce MD PCP - General 05/27/1998 documented as of this encounter
--- OUTSIDE RECORDS SUMMARY | 2022-06-10 14:32 | XMS_ITS | Encounter Summary ---
:1955 Author Organization [facility] Address [address] [place] [address] Care Team Providers Name Role Phone Luis Pierce MD Primary Care Provider Unavailable Encounter Details Date Type Department Care Team Description 08/22/1998 Other Services Indra Willams MD [facility] [address] Social History Tobacco Use Types Packs/Day Years Used Date Smoking Tobacco: Never Assessed Sex Assigned at Date Recorded Not on file documented as of this encounter Plan of Treatment Not on filedocumented as of this encounter Visit Diagnoses Diagnosis Excessive or frequent menstruation Dysplasia of cervix (uteri) Cervicitis and endocervicitis documented in this encounter Care Teams Analytical Scientist Relationship Specialty Start Date End Date Luis Pierce MD PCP - General 05/27/1998 documented as of this encounter
--- OUTSIDE RECORDS SUMMARY | 2022-06-10 14:32 | XMS_ITS | Encounter Summary ---
:1955 Author Organization [facility] Address [address] [place] [address] Care Team Providers Name Role Phone Alisha [...] filedocumented in this encounter Care Teams Track Car Operator Relationship Specialty Start Date End Date Alisha Kimball MD PCP - General 07/08/[address] [place], [place] [id number] documented as of this encounter
--- OUTSIDE RECORDS SUMMARY | 2022-06-10 14:32 | XMS_ITS | Encounter Summary ---
:1955 Author Organization [facility] Address [address] [place] [address] Care Team Providers Name Role Phone Luis [...] bleeding documented in this encounter Care Teams Accounting Systems Analyst Relationship Specialty Start Date End Date Luis Pierce MD PCP - General 05/27/1998 documented as of this encounter
--- OUTSIDE RECORDS SUMMARY | 2022-06-10 14:32 | XMS_ITS | Encounter Summary ---
:1955 Author Organization [facility] Address [address] [place] [address] Care Team Providers Name Role Phone Alisha [...] on filedocumented in this encounter Care Teams Residence Counselor Relationship Specialty Start Date End Date Alisha Kimball MD PCP - General 07/08/[address] [place] [address] documented as of this encounter
--- OUTSIDE RECORDS SUMMARY | 2022-06-10 14:32 | XMS_ITS | Encounter Summary ---
:1955 [facility] Address [address] [place] [address] Care Team Providers Name Role Phone Luis [...] Waiting 08/30/1998 8:22 PM Results for this MOLD DESIGNER procedure are i n the results section . documented in this encounter Results UA WITH MICRO (08/30/1998 8:22 PM MOLD DESIGNER) P athologist Signature Appr Yellow [facility] Appr [...] Bact Occ [facility] Casts 0 /lpf [facility] Specimen Anatomical Collection Method Collection Time Receive d Time (Source) Location / / Volume Laterality 08/30/1998 8:22 PM 9 8:23 MOLD DESIGNER PM MOLD DESIGNER Im Trauma Wyucc LAB_1 Performing Organization Address City/State/ZIP Code Phon e Number [facility] [phone] [address] documented in this encounter Visit Diagnoses Not on filedocumented in this encounter Care Teams Medical Cash Poster Relationship Specialty Start Date End Date Luis Pierce MD PCP - General 05/27/1998 documented as of this encounter
--- OUTSIDE RECORDS SUMMARY | 2022-06-10 14:32 | XMS_ITS | Encounter Summary ---
:1955 [facility] Address [address] [place] [address] Care Team Providers Name Role Phone Luis Pierce MD Primary Care Provider Unavailable Encounter Details Date Type Department Care Team Description 08/30/1998 Office Visit Francisco Gupta MD UTI [address] [place], [place] [address] (Wo rk) Social History Tobacco Use Types Packs/Day Years Used Date Smoking Tobacco: Never Assessed Sex Assigned at Date Recorded Not on file documented as of this encounter Plan of Treatment Not on filedocumented as of this encounter Visit Diagnoses Diagnosis Urinary tract infection, site not specif ied documented in this encounter Care Teams Teletype Clerk Relationship Specialty Start Date End Date Luis Pierce MD PCP - General 05/27/1998 documented as of this encounter
--- OUTSIDE RECORDS SUMMARY | 2022-06-10 14:32 | XMS_ITS | Encounter Summary ---
:1955 Author Organization [facility] Address [address] [place] [address] Care Team Providers Name Role Phone Miky [...] on filedocumented in this encounter Care Teams Leather Sprayer Relationship Specialty Start Date End Date Miky Sultana MD PCP - General 06/17/1996 05/26/1998 [address] [place] [address] documented as of this encounter
--- OUTSIDE RECORDS SUMMARY | 2022-06-10 14:32 | XMS_ITS | Encounter Summary ---
:1955 Author Organization [facility] Address [address] [place] [address] Care Team Providers Name Role Phone Luis [...] 08/19/1998 9:37 AM Resu lts for this CLERK TRAVEL RESERVATIONS procedure are i n the results section. PHONED RESULTS Routine 08/19/1998 9:37 AM Results for this CLERK TRAVEL RESERVATIONS procedure are i n the results section. documented in this encounter Results PHONED RESULTS (08/19/1998 9:37 AM CLERK TRAVEL RESERVATIONS) [facility] Method Time Signature Phoned HGB called to Meaghan Guerrero ([place] OB) at [facility] Results [id number] on [id number] Specimen Anatomical Collection Method Collection Time Receive d Time (Source) Location / / Volume Laterality 08/19/1998 9:37 AM 9 9:38 CLERK TRAVEL RESERVATIONS AM CLERK TRAVEL RESERVATIONS Luis Pierce MD LAB_1 Performing Organization Address City/State/ZIP Code Phon e Number [facility] [phone] [facility] [address] [place] [address] (ABNORMAL) HEMOGLOBIN, BLOOD (08/19/1998 9:37 AM CLERK TRAVEL RESERVATIONS) [facility] Method Time Signature Hemoglobin 7.7 (L) 12.0 - [facility] 16.0 g/dl Hemoglobin Result [facility] Checked Specimen Anatomical Collection Method Collection Time Receive d Time (Source) Location / / Volume Laterality 08/19/1998 9:37 AM 9 9:38 CLERK TRAVEL RESERVATIONS AM CLERK TRAVEL RESERVATIONS Luis Pierce MD LAB_1 Performing Organization Address City/State/ZIP Code Phon e Number [facility] [phone] [facility] [address] [address] documented in this encounter Visit Diagnoses Not on filedocumented in this encounter Care Teams Applications Specialist Relationship Specialty Start Date End Date Luis Pierce MD PCP - General 05/27/1998 documented as of this encounter
--- OUTSIDE RECORDS SUMMARY | 2022-06-10 14:32 | XMS_ITS | Encounter Summary ---
:1955 Author [facility] Address [address] [place] [address] Care Team Providers Name Role Phone Luis Pierce MD Primary Care Provider Unavailable Encounter Details Date Type Department Care Team Description 08/22/1998 Other Services Dar Haas MD [address] [facility] [place] [address] (Wo rk) Social History Tobacco Use Types Packs/Day Years Used Date Smoking Tobacco: Never Assessed Sex Assigned at Date Recorded Not on file documented as of this encounter Plan of Treatment Not on filedocumented as of this encounter Visit Diagnoses Diagnosis Excessive or frequent menstruation documented in this encounter Care Teams Veterinary Technician Assistant Relationship Specialty Start Date End Date Luis Pierce MD PCP - General 05/27/1998 documented as of this encounter
--- OUTSIDE RECORDS SUMMARY | 2022-06-10 14:32 | XMS_ITS | Encounter Summary ---
:1955 Author Organization [facility] Address [address] [place] [address] Care Team Providers Name Role Phone Luis [...] Routine 07/16/1998 4:03 PM Results for this FRAMING INSPECTOR procedure are i n the results section . documented in this encounter Results URINE CULTURE (MIDSTREAM) (07/16/1998 4:03 PM FRAMING INSPECTOR) [facility] Method Time Signature Specimen Urine [facility] Description Cath/Bladder Special None [facility] Requests Culture No Growth [facility] After 2 Days Report Status Final [facility] Report Status [id number] [facility] Specimen Anatomical Collection Method Collection Time Receive d Time (Source) Location / / Volume Laterality 07/16/1998 4:03 PM 9 4:03 FRAMING INSPECTOR PM FRAMING INSPECTOR Luis Pierce MD LAB_1 Performing Organization Address City/State/ZIP Code Phon e Number [facility] [phone] [address] documented in this encounter Visit Diagnoses Not on filedocumented in this encounter Care Teams National Opelint Analyst Relationship Specialty Start Date End Date Luis Pierce MD PCP - General 05/27/1998 documented as of this encounter
--- OUTSIDE RECORDS SUMMARY | 2022-06-10 14:32 | XMS_ITS | Encounter Summary ---
:1955 Author Organization [employer] [facility] Address [address] [place] [address] Care Team Providers Name Role Phone Miky Sultana MD Primary Care Provider Encounter Details Date Type Department Care Team Description 05/16/1998 Orders Only [facility] Kari, SCREENING MAMM-MAILG [address] Luis Evans MD NEOPL-OTHER [place], [place] [phone] Social History Tobacco Use Types Packs/Day Years [...] AM Screening Mamm-Mailg Results for this SCREENING OVER THE HORIZON TARGETING SUPERVISOR Neopl-Other procedure are i n the results section. documented in this encounter Results MAMMOGRAM, SCREENING (05/16/1998 12:00 AM OVER THE HORIZON TARGETING SUPERVISOR) Anatomical Region Laterality Modality Breast Other Specimen (Source) Anatomical Location Collection Method / Collectio n Time Received Time / Laterality Volume 05/16/1998 Transcriptions Brenden Soto M - 05/16/1998 12:00 AM [facility] LINICAL DATA: SCREENING INTERPRETATION: Bilateral mammogram 05/16/98: [...] mammogram documented in this encounter Care Teams Supervisor Cemetery Workers Relationship Specialty Start Date End Date Miky Sultana MD PCP - General 06/17/1996 05/26/[address] [place] [address] [place] [address] documented as of this encounter
--- OUTSIDE RECORDS SUMMARY | 2022-06-10 14:33 | XMS_ITS | Encounter Summary ---
:1955 Author Organization [facility] Address [address], [place] [address] Care Team Providers Name Role Phone Luis Pierce MD Primary Care Provider Unavailable Encounter Details Date Type Department Care Team Description 10/12/1995 Office Visit Miky Sultana MD [address] [place] [address] (Wo rk) Social History Tobacco Use Types [...] on filedocumented in this encounter Care Teams Bar Helper Relationship Specialty Start Date End Date Luis Pierce MD PCP - General 05/27/1998 documented as of this encounter
--- OUTSIDE RECORDS SUMMARY | 2022-06-10 14:33 | XMS_ITS | Encounter Summary ---
:1955 Author Organization [facility] Address [address] [place] [address] Care Team Providers Name Role Phone Miky [...] 11:05 AM Re sults for this SCREEN SUPERVISOR DISPLAY FABRICATION procedure are i n the results section. documented in this encounter Results RAPID, GPA STREP SCREEN (WAITING) (10/05/1997 11:05 AM SUPERVISOR DISPLAY FABRICATION) [facility] gist Method Time Signature Patient Home [id number] Zeel Phone # Patient Work [phone] Ze[employer] Phone # Grp A Rapid Negative [facility] Screen Grp A Culture Negative [facility] Final Specimen Anatomical Collection Method Collection Time Receive d Time (Source) Location / / Volume Laterality 10/05/1997 11:05 10/05/1997 AM SUPERVISOR DISPLAY FABRICATION 11:06 AM SUPERVISOR DISPLAY FABRICATION Wy Nursing Rn LAB_1 Performing Organization Address City/State/ZIP Code Phon e Number [facility] [phone] [facility] [address] [place] [address] documented in this encounter Visit Diagnoses Not on filedocumented in this encounter Care Teams Court Security Officer Relationship Specialty Start Date End Date Miky Sultana MD PCP - General 06/17/1996 05/26/[address] [place] [address] documented as of this encounter
--- OUTSIDE RECORDS SUMMARY | 2022-06-10 14:33 | XMS_ITS | Encounter Summary ---
:1955 Author Organization [facility] Address [address] [place] [address] Care Team Providers Name Role Phone Alisha Kimball MD Primary Care Provider Encounter Details Date Type Department Care Team Description 06/10/1995 Orders Only Miky Sultana MD [address] [facility] [place] [address] (Wo rk) Social History Tobacco Use Types Packs/Day Years Used Date Smoking Tobacco: Never Assessed Sex Assigned at Date Recorded Not on file documented as of this encounter Plan of Treatment Not on filedocumented as of this encounter Visit Diagnoses Not on filedocumented in this encounter Care Teams Lead Python Developer Relationship Specialty Start Date End Date Alisha Kimball MD PCP - General 07/08/[address] [place], [place] [phone] documented as of this encounter
--- OUTSIDE RECORDS SUMMARY | 2022-06-10 14:33 | XMS_ITS | Encounter Summary ---
:1955 Author Organization [facility] Address [address], [place] [address] Care Team Providers Name Role Phone Luis Pierce MD Primary Care Provider Unavailable Encounter Details Date Type Department Care Team Description 05/15/1994 Office Visit Francisco Albarran MD [address] [place] [address] (Wo rk) Social History Tobacco Use Types [...] was reassured and we'll treat symptomatically. cc: RUMENT CALIBRATOR documented in this encounter Plan of Treatment Not on filedocumented as of this encounter Visit Diagnoses Not on filedocumented in this encounter Care Teams Analytical Data Scientist Relationship Specialty Start Date End Date Luis Pierce MD PCP - General 05/27/1998 documented as of this encounter
--- OUTSIDE RECORDS SUMMARY | 2022-06-10 14:33 | XMS_ITS | Encounter Summary ---
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 She has been using [...] on filedocumented in this encounter Care Teams Shotweld Operator Relationship Specialty Start Date End Date Luis Pierce MD PCP - General 05/27/1998 documented as of this encounter
--- OUTSIDE RECORDS SUMMARY | 2022-06-10 14:33 | XMS_ITS | Encounter Summary ---
:1955 Author Organization [facility] Address [address], [place] [address] Care Team Providers Name Role Phone Luis Pierce MD Primary Care Provider Unavailable Encounter Details Date Type Department Care Team Description 06/10/1995 Office Visit Miky Sultana MD [address] [facility] [address] (Wo rk) Social History Tobacco Use Types [...] She will follow up as needed. cc: T STUFFER documented in this encounter Plan of Treatment Not on filedocumented as of this encounter Visit Diagnoses Not on filedocumented in this encounter Care Teams Outsole Flexer Relationship Specialty Start Date End Date Luis Pierce MD PCP - General 05/27/1998 documented as of this encounter
--- OUTSIDE RECORDS SUMMARY | 2022-06-10 14:33 | XMS_ITS | Encounter Summary ---
:1955 Author Organization [facility] Address [address] [place] [address] Care Team Providers Name Role Phone Alisha Kimball MD Primary Care Provider Encounter Details Date Type Department Care Team Description 10/26/1994 Orders Only Miky Sultana MD [address] [facility] [place] [address] (Wo rk) Social History Tobacco Use Types Packs/Day Years Used Date Smoking Tobacco: Never Assessed Sex Assigned at Date Recorded Not on file documented as of this encounter Plan of Treatment Not on filedocumented as of this encounter Visit Diagnoses Not on filedocumented in this encounter Care Teams Detective Homicide Squad Relationship Specialty Start Date End Date Alisha Kimball MD PCP - General 07/08/[address] [place], [place] [id number] documented as of this encounter
--- OUTSIDE RECORDS SUMMARY | 2022-06-10 14:33 | XMS_ITS | Encounter Summary ---
:1955 Author Organization [facility] Address [address] [place] [address] Care Team Providers Name Role Phone Luis [...] on filedocumented in this encounter Care Teams Clam Bed Worker Relationship Specialty Start Date End Date Luis Pierce MD PCP - General 05/27/1998 documented as of this encounter
--- OUTSIDE RECORDS SUMMARY | 2022-06-10 14:33 | XMS_ITS | Encounter Summary ---
:1955 Author Organization [facility] Address [address], [place] [address] Care Team Providers Name Role Phone Luis Pierce MD Primary Care Provider Unavailable Encounter Details Date Type Department Care Team Description 01/08/1997 Office Visit Miky Sultana MD [address] [facility] [place] [address] (Wo rk) Social History Tobacco Use Types [...] filedocumented in this encounter Care Teams Mechanical Lead Relationship Specialty Start Date End Date Luis Pierce MD PCP - General 05/27/1998 documented as of this encounter
--- OUTSIDE RECORDS SUMMARY | 2022-06-10 14:33 | XMS_ITS | Encounter Summary ---
:1955 Author Organization [facility] Address [address], [place] [address] Care Team Providers Name Role Phone Luis Pierce MD Primary Care Provider Unavailable Encounter Details Date Type Department Care Team Description 06/01/1994 Office Visit Miky Sultana MD [address] [facility] [place] [address] (Wo rk) Social History Tobacco Use Types [...] sooner if she has her problems. cc: EY FIELD TECHNICIAN documented in this encounter Plan of Treatment Not on filedocumented as of this encounter Visit Diagnoses Not on filedocumented in this encounter Care Teams Hardware Sales Assistant Relationship Specialty Start Date End Date Luis Pierce MD PCP - General 05/27/1998 documented as of this encounter
--- OUTSIDE RECORDS SUMMARY | 2022-06-10 14:33 | XMS_ITS | Encounter Summary ---
:1955 Author Organization [facility] Address [address] [place] [address] Care Team Providers Name Role Phone Miky Sultana MD Primary Care Provider Encounter Details Date Type Department Care Team Description 07/02/1994 Orders Only [facility] Unknown, Physician Radiology [address] [place] [phone] (Wo rk) Social History Tobacco Use Types [...] on filedocumented in this encounter Care Teams Community Outreach Specialist Relationship Specialty Start Date End Date Miky Sultana MD PCP - General 09/21/01 07/07/05 [address] [place] [address] documented as of this encounter
--- OUTSIDE RECORDS SUMMARY | 2022-06-10 14:33 | XMS_ITS | Encounter Summary ---
:1955 Author Organization [facility] Address [address], [place] [address] Care Team Providers Name Role Phone Luis Pierce MD Primary Care Provider Unavailable Encounter Details Date Type Department Care Team Description 10/17/1996 Office Visit Miky Sultana MD [address] [place] [address] (Wo rk) Social History Tobacco Use Types [...] on filedocumented in this encounter Care Teams Carbon Paper Machine Operator Relationship Specialty Start Date End Date Luis Pierce MD PCP - General 05/27/1998 documented as of this encounter
--- OUTSIDE RECORDS SUMMARY | 2022-06-10 14:33 | XMS_ITS | Encounter Summary ---
:1955 Author Organization [facility] Address [address] [place] [address] Care Team Providers Name Role Phone Alisha Kimball MD Primary Care Provider Encounter Details Date Type Department Care Team Description 06/07/1995 Orders Only Miky Sultana MD [address] [facility] [place] [address] (Wo rk) Social History Tobacco Use Types Packs/Day Years Used Date Smoking Tobacco: Never Assessed Sex Assigned at Date Recorded Not on file documented as of this encounter Plan of Treatment Not on filedocumented as of this encounter Visit Diagnoses Not on filedocumented in this encounter Care Teams Retrieval Specialist Relationship Specialty Start Date End Date Alisha Kimball MD PCP - General 07/08/[address] [place], [place] [phone] documented as of this encounter
--- OUTSIDE RECORDS SUMMARY | 2022-06-10 14:33 | XMS_ITS | Encounter Summary ---
:1955 Author Organization [facility] Address [address] [address] Care Team Providers Name Role Phone Luis Pierce MD Primary Care Provider Unavailable Encounter Details Date Type Department Care Team Description 03/12/1997 Office Visit Miky Sultana MD [address] [facility] [place] [address] (Wo rk) Social History Tobacco Use Types [...] filedocumented in this encounter Care Teams Roll Press Operator Relationship Specialty Start Date End Date Luis Pierce MD PCP - General 05/27/1998 documented as of this encounter
--- OUTSIDE RECORDS SUMMARY | 2022-06-10 14:33 | XMS_ITS | Encounter Summary ---
:1955 Author Organization [facility] Address [address] [place] [address] Care Team Providers Name Role Phone Alisha Kimball MD Primary Care Provider Encounter Details Date Type Department Care Team Description 01/26/1995 Orders Only Miky Sultana MD [address] [facility] [place] [address] (Wo rk) Social History Tobacco Use Types Packs/Day Years Used Date Smoking Tobacco: Never Assessed Sex Assigned at Date Recorded Not on file documented as of this encounter Plan of Treatment Not on filedocumented as of this encounter Visit Diagnoses Not on filedocumented in this encounter Care Teams Tester Sound Relationship Specialty Start Date End Date Alisha Kimball MD PCP - General 07/08/[address] [place], [place] [phone] documented as of this encounter
--- OUTSIDE RECORDS SUMMARY | 2022-06-10 14:33 | XMS_ITS | Encounter Summary ---
:1955 Author Organization [facility] Address [address] [place] [address] Care Team Providers Name Role Phone Alisha Kimball MD Primary Care Provider Encounter Details Date Type Department Care Team Description 10/06/1994 Orders Only Miky Sultana MD [address] [facility] [address] [place] [address] (Wo rk) Social History Tobacco Use Types Packs/Day Years Used Date Smoking Tobacco: Never Assessed Sex Assigned at Date Recorded Not on file documented as of this encounter Plan of Treatment Not on filedocumented as of this encounter Visit Diagnoses Not on filedocumented in this encounter Care Teams Library Customer Service Clerk Relationship Specialty Start Date End Date Ailsha Kimball MD PCP - General 07/08/[address] [place], [place] [phone] documented as of this encounter
== END 2022-06-04 12:53 | disposition home or self-care (01) ==
LOC: NFLDUCREF 06-10 14:11
PROVIDERS: PCP Family Medicine; Visit Provider Student in an Organized Health Care Education/Training Program
DX: R30.0 Dysuria (principal); N76.0 Acute vaginitis; N39.0 Urinary tract infection, site not specified
CPT/HCPCS: 87086

== ENCOUNTER 2022-06-12 09:33 | Outpatient (CLI) | payer OTHER, SELFPAY ==
--- OUTSIDE RECORDS SUMMARY | 2022-06-12 09:36 | XMS_ITS | Encounter Summary ---
:1955 Author Organization [facility] Address [address] [place] [address] Care Team Providers Name Role Phone Alisha Kimball MD Primary Care Provider Reason for Visit Reason Comments Dental Exam none Dental Hygiene Encounter Details Date Type Department Care Team Description 02/24/2022 Office Visit [facility] Gonzalez, [facility] [address] [place] [address] Dental Exam (none); Dentistry Yardic, Exam Dental Hygiene [address] [place] [address] Social History Tobacco Use Types [...] by the dentist, dental hygienist, or dental transition assistant. Congratulations on your low risk for [...] agreement with Josue Kerns DDS (License #: [id number]) PROCEDURAL PAUSE: Patient identity verified: Yes Treatment [...] Primary documented in this encounter Care Teams Show Horse Driver Relationship Specialty Start Date End Date Alisha Kimball MD PCP - General 07/08/05 [address] [place] [address] documented as of this encounter
--- OUTSIDE RECORDS SUMMARY | 2022-06-12 09:36 | XMS_ITS | Encounter Summary ---
:1955 Author Organization [facility] Address [address] [place] [address] Care Team Providers Name Role Phone Carroll Kimball MD Primary Care Provider Reason for Visit Reason Comments Refill atenolol (TENORMIN) 100 MG t ablet [Pharmacy Med Name: ATENOLOL 100 MG TABLET] Encounter Details Date Type Department Care Team Description 05/21/[address] [facility] Carroll Kimball MD Refill (atenolol Practice [address] (TENORMIN) 100 MG tablet [address] [place] [address] [Pharmacy Med Name: [place] [address] ATENOLOL 100 MG TABLET]) [phone] Social History Tobacco Use Types Packs/Day Years Used Date Smoking Tobacco: Never Smokeless Tobacco: Never Alcohol Use Standard Drinks/Week Comments No 0 (1 standard drink = 0.6 oz pure alcoho l) Sex Assigned at Date Recorded Not on file documented as of this encounter Nursing Notes Nadia Garcia RN - 05/22/2020 11:55 AM CST Medication(s) approved by RN per Refill Protocol/Standing Order Nadia Gracia RN 05/22/2020, 11:55 AM TION PROFESSIONAL Interface, Out Surescripts Prov Query - 05/21/2020 [...] mouth daily. (changed but equivalent) Powered by [employer], Reference: [id number], 05/21/2020 12:02:43 AM SOLUTION PROFESSIONAL, Luis Eduardo: ARNOLD REFILL RN ([id number]) TION PROFESSIONAL documented in this encounter Plan of Treatment Not on filedocumented as of this encounter Visit Diagnoses Diagnosis Paroxysmal atrial fibrillation (HRC) Atrial fibrillation documented in this encounter Care Teams Sld Educational Aide Relationship Specialty Start Date End Date Carroll Kimball MD PCP - General 07/08/05 [address] [place] [address] documented as of this encounter
--- OUTSIDE RECORDS SUMMARY | 2022-06-12 09:36 | XMS_ITS | Encounter Summary ---
:1955 Author Organization [facility] Address [address], [place] [address] Care Team Providers Name Role Phone Alisha Kimball MD Primary Care Provider Reason for Visit Reason Comments Dental Hygiene none Encounter Details Date Type Department Care Team Description 02/07/2021 Office Visit [facility] [address] [place] [address] Dental Hygiene (none) Dentistry Yard[place], Exam [address] [place] [address] Social History Tobacco Use Types [...] agreement with Josue Kerns DDS (License #: [id number]) CHART REVIEW: Reviewed with patient: Medical history, [...] EXISTING PFM CROWN Routine 07/09/2009 12:00 AM MEAT CURER documented in this encounter Visit Diagnoses Diagnosis Chronic periodontitis, localized, slight - Primary documented in this encounter Care Teams Document Controller Relationship Specialty Start Date End Date Alisha Kimball MD PCP - General 07/08/05 [address] [place] [address] documented as of this encounter
--- OUTSIDE RECORDS SUMMARY | 2022-06-12 09:36 | XMS_ITS | Encounter Summary ---
:1955 Author Organization [facility] Address [address], [place] [address] Care Team Providers Name Role Phone Alisha Kimball MD Primary Care Provider Reason for Visit Reason Comments Dental Hygiene no cc;s Encounter Details Date Type Department Care Team Description 10/08/2020 Office Visit [facility] Dori Mayer De nta Hygiene (no Dentistry RD cc;s) [address] [facility] [address] [place] [id number] Social History Tobacco Use Types Packs/Day Years [...] this encounter Patient Instructions Patient InstructionsDori Mayer [facility] - 10/08/2020 9:10 AM CDT Your next [...] collaborating agreement with Jamaal Cleveland DDS (License #:[id number]) PRESENTATION: Oral Hygiene: Fair Plaque: Localized, light [...] facility documented in this encounter Care Teams Panelboard Tank Pumper Relationship Specialty Start Date End Date Alisha Kimball MD PCP - General 07/08/05 [address] [place] [address] documented as of this encounter
--- OUTSIDE RECORDS SUMMARY | 2022-06-12 09:36 | XMS_ITS | Clinical Summary ---
:1955 Author Organization [facility] Address [address] [place] [address] Care Team Providers Name Role Phone Alisha [...] for each transition of care or referral. [employer] Allergies Active Allergy Reactions Severity Noted Date [...] Engaged in Disease Management-Diabetes: Marisol Cruz RN [phone] Diabetes mellitus, type 2 05/14/2010 12/07/2017 Encounters Date Type Specialty Care Team Description 06/09/2022 Office Visit [facility] Dentistry Yaquelin Garcia Den tal Hygiene (No cc) RD from Last 3 Months Immunizations Name Administration Dates Next Due Flu Vac (3+ yrs) 04/01/2012, 05/01/2011, 04/18/2010 Influenza IIV3 (Trivalent) Fluzone 03/28/2019 Highdose, 65+ Yrs ([id number]) Influenza IIV4 (Quadrivalent) 0.5mL 04/11/2018, 05/19/2017, 04/30/2016, ([id number]) 04/27/2014 Influenza IIV4 (Quadrivalent) Fluad, 04/11/2020 65+ [...] Relation Name Status Comments Father (Age 64) AR Mother (Age 76) ovarian cancer Brother 1 Alive Brother 2 Alive Brother 3 Alive Brother 4 Alive Brother 5 Alive Maternal Grandfather accident Maternal Grandmother AR Paternal Grandfather AR Paternal Grandmother AR Sister Alive Son 1 Alive Son 2 [...] AM CDT Pulse 55 06/09/2022 8:14 AM PLASTER PATTERN CASTER Temperature 36.6 ??C (97.8 ??F) 04/16/2020 11:54 [...] Comme nts PROPHYLAXIS-ADULT Routine 06/09/2022 8:10 AM PLASTER PATTERN CASTER Chronic perio dontitis, RECALL localized, slight from Last 3 Months Insurance Payer Benefit Plan / Subscriber ID Effective Phone Address T ype Group [facility] [id number] 2017-Pres [employer]ENT[place] MEDICARE [id number] 2019-Pres [facility] care ent [employer] MEDICARE [id number] 2018-Pres Commercial SUPPLEMENT ent Guarantor Name Account Type Relation to Date of Phone Billing Patient Address Loc [place] Personal/Family Self 1955 [address] (Home) [place] [facility] [place] [phone] (Work) Loc [place] Personal/Family Self 1955 [address] (Home) [facility] [place] [phone] (Work) Care Teams Utilization Review Nurse Relationship Specialty Start Date End Date Alisha Kimball MD PCP - General 07/08/[address] [place] [address]
--- OUTSIDE RECORDS SUMMARY | 2022-06-12 09:36 | XMS_ITS | Encounter Summary ---
:1955 Author Organization [facility] Address [address], [place] [address] Care Team Providers Name Role Phone Alisha Kimball MD Primary Care Provider Reason for Visit Reason Comments BLOOD PRESSURE CHECK Encounter Details Date Type Department Care Team Description 05/31/2020 Telephone [facility] Alisha Kimball MD BLOOD PRESSURE CHECK Practice [address] [place] [address] [place], [place] [id number] [phone] Social History Tobacco Use Types Packs/Day Years [...] Dr Kimball questions. Please call back at [phone] and ask for Nga Kimball's nurse. Nga Ballard LPN ING SPECIALIST Reina Velasquez LPN - 05/31/2020 10:58 AM CST Supply Chain Generalist left a message for patient to return call to clinic. Reina Velasquez LPN ING SPECIALIST Alisha Kimball MD - 05/31/2020 9:38 AM CST Some of the readings are pretty low. Does she have lightheadedness when she stands up? Does she wantto decrease her losartan to 1/2 tab daily and monitor her blood pressure? Thanks! Alisha Kimball MD Vero Ramirez - 05/31/2020 8:59 AM CST Miscellaneous Questions & FYI's [Mechanical Engineering Professor: If this call is after 3 p.m., communicate to patient: If we are not able to get back to you by the end of the day and your symptoms worsen please contact the Careline at [phone] at .] Is this a question/concern or [...] route to None OR Care Team Pool [MATH TEACHER/RMA/LPNs: please call the patient to gather additional details, as needed.] ING SPECIALIST documented in this encounter Plan of Treatment Not on filedocumented as of this encounter Visit Diagnoses Not on filedocumented in this encounter Care Teams Senior Living Advisor Relationship Specialty Start Date End Date Alisha Kimball MD PCP - General 07/08/05 [address] [place] [address] documented as of this encounter
--- OUTSIDE RECORDS SUMMARY | 2022-06-12 09:36 | XMS_ITS | Encounter Summary ---
:1955 Author Organization [facility] Address [address] [address] Care Team Providers Name Role Phone Alisha Kimball MD Primary Care Provider Reason for Visit Reason Comments Dental Hygiene none Encounter Details Date Type Department Care Team Description 06/06/2020 Office Visit [facility] Alisha Avila, [place] Hygiene (none) Dentistry [facility] [address] [address] [phone] Social History Tobacco Use Types Packs/Day Years Used Date Smoking Tobacco: Never Smokeless Tobacco: Never Alcohol Use Standard Drinks/Week Comments No 0 (1 standard drink = 0.6 oz pure alcoho l) Sex Assigned at Date Recorded Not on file documented as of this encounter Last Filed Vital Signs Vital Sign Reading Time Taken Comments Blood Pressure - - Pulse 102 06/06/2020 7:09 AM PICKING TABLE WORKER Temperature - - Respiratory Rate - - [...] agreement with Beth Lauren DDS (License #: [id number]) CHART REVIEW: Reviewed with patient: Medical history, [...] Polished today for stain-pt doesn't get the luxembourger very often Next Planned Hygiene Visit: Hygiene Prophy with exam Alisha Avila 06/06/2020, 7:38 AM --End of Note-- Electronically signed by Alisha Avila [facility] at 06/06/2020 7:39 AM PICKING TABLE WORKER documented in this encounter Plan of Treatment Not on filedocumented as of this encounter Procedures Procedure Name Priority Date/Time Associated Diagnosis Comme nts PROPHYLAXIS-ADULT Routine 06/06/2020 7:10 AM PICKING TABLE WORKER Gingivitis RECALL documented in this encounter Visit Diagnoses Diagnosis Gingivitis - Primary Chronic gingivitis, plaque induced Routine adult health maintenance Routine general medical examination at a health care facility documented in this encounter Care Teams Plastic Parts Fabricator Relationship Specialty Start Date End Date Alisha Kimball MD PCP - General 07/08/05 [address] [place] [address] documented as of this encounter
--- OUTSIDE RECORDS SUMMARY | 2022-06-12 09:36 | XMS_ITS | Encounter Summary ---
:1955 Author Organization [facility] Address [address] [place] [address] Care Team Providers Name Role Phone Alisha Kimball MD Primary Care Provider Encounter Details Date Type Department Care Team Description 08/16/2020 Anticoagulation [facility] Anticoagulation Cent er [address] [facility] [address] [place] [address] [address] [place], [place] [phone] Social History Tobacco Use Types Packs/Day Years [...] on filedocumented in this encounter Care Teams Loom Inspector Relationship Specialty Start Date End Date Alisha Kimball MD PCP - General 07/08/05 [address] [place], [place] [phone] documented as of this encounter
--- OUTSIDE RECORDS SUMMARY | 2022-06-12 09:36 | XMS_ITS | Encounter Summary ---
:1955 Author Organization [employer] Address [address] [address] Care Team Providers Name Role Phone Alisha Kimball MD Primary Care Provider Reason for Referral Consult/Transfer Care (Routine) - Incomplete Specialty Diagnoses / Procedures Referred By Contact Refer red To Contact Diagnoses CAREPLAN: ANTI-COAGULATION Paroxysmal atrial fibrillation (HRC) Madiha Olivares III, MD [address] [place] [address] Referral ID Status Reason Start Date Expiration Date Visits V isits Requested Authorized [id number] Incomplete 06/14/2020 09/13/2021 1 1 Scheduling Instructions . KEEPER Reason for Visit Reason Comments Medication Questions Encounter Details Date Type Department Care Team Description 06/14/2020 Telephone [facility] Alisha Kimball MD Medication Questions Practice [address] [facility] 50 [place] [place] [address] [place], [place] [id number] [phone] Social History Tobacco Use Types Packs/Day Years Used Date Smoking Tobacco: Never Smokeless Tobacco: Never Alcohol Use Standard Drinks/Week Comments No 0 (1 standard drink = 0.6 oz pure alcoho l) Sex Assigned at Date Recorded Not on file documented as of this encounter Patient Instructions Patient InstructionsMadiha Olivares III, MD - 06/14/2020 1:12 PM CST KEEPER documented in this encounter Nursing Notes Addie Gonzalez RDH - 06/12/2021 9:58 AM CST Pt. Requested removal, the patient takes eliquis. Addie Gonzalez RDH 06/12/2021, 9:59 AM KEEPER Madiha Olivares III, MD - 06/14/2020 5:06 PM CST Order is signed. Madiha Olivares III, MD KEEPER Juan Hoffman - 06/14/2020 2:16 PM CST Pt called states that she is not starting the warfarin until Jul. For now she needs just 15 days worth of Eliquis [facility]. Per pt, please just send 15 days worth of medication, she will do labs when she comes back from [place], thank you KEEPER Mary De La O - 06/14/2020 1:52 PM CST Patient called back and states that she will make it work and to cancel this request. KEEPER Mickie Welsh RN - 06/14/2020 1:40 PM CST Truck Technician discussed with pt. Pt states she has enough elquist until 07/05/19. Pt will be back in town 2week of July. Pt states she can go Wednesday morning to get labs as she is leaving for [place] on wed06/19/20-07/19/19. Please advise. Mickie Welsh RN 06/14/2020, 1:42 PM KEEPER Madiha Olivares III, MD - 06/14/2020 1:12 PM CST Will order for warfarin initiation and refer to the coumadin clinic. Needs baseline labs. RN please inform patient.Madiha Olivares III, MD KEEPER Rocio Garcia - 06/14/2020 10:15 AM CST [...] month, next week Wednesday. Will forward to [facility] - Dr Olivares (Dr Kimball out of clinic) Who prescribed it? Alisha Kimball MD Is it okay to leave a detailed message on your voicemail? Yes For this medication, patient would like it filled at the pharmacy listed in Meds & Orders. [Regional Ehs Manager/Appt Center: Verify the pharmacy patient would like to use for this request is highlighted in blue in Pharmacy Selection under Meds & Orders] Rocio Garcia Please route to: Care Team Pool If this is a Medicaid drug change, please route to: clinic specific Refill pool installer KEEPER documented in this encounter Plan of Treatment Scheduled Referrals Name Type Priority Associated Diagnoses Order S chedule [facility] Anticoagulation Dosing Referral Routine CAREPLAN: Or dered: Order ANTI-COAGULATION 06/14/2020 Paroxysmal atrial fibrillation (HRC) documented as of this encounter Visit Diagnoses Diagnosis CAREPLAN: ANTI-COAGULATION 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
--- OUTSIDE RECORDS SUMMARY | 2022-06-12 09:36 | XMS_ITS | Encounter Summary ---
:1955 Author Organization [facility] Address [address] [place] [address] Care Team Providers Name Role Phone Alisha Kimball MD Primary Care Provider Encounter Details Date Type Department Care Team Description 06/14/2020 [facility] er [address] [place] [address] [address] [place], [place] [address] [phone] Social History Tobacco Use Types Packs/Day Years [...] Barnes RN[facility] 06/14/2020 2:33 PM R COATING HAND Marysol Davidson RN - 06/14/2020 2:27 PM CST Will postpone for 07/18/2020 follow-up. Provider sent refill of Eliquis for patient. She will [facility] and is planning on switching to warfarin at that time. Marysol Davidson, CAITLYN 06/14/2020, 7:19 PM R COATING HAND Floresita Wyatt - 06/14/2020 2:27 PM CST Per INR Reg: no INR recheck date . Please review. Floresita Wyatt 08/16/2020, 9:41 AM R COATING HAND Kian Barnes RN - 06/14/2020 2:27 PM CST Spoke with pt and per pt she is no longer with [facility] since then first of the year. She is now getting her primary through [facility]. Per pt she cont on Eliquis but anticoagulation is now managed by [facility]. Will discontinued anticoagulation care with [facility]. Sending as FYI to PCP. Kian Barnes RN[facility] 08/16/2020 10:32 AM R COATING HAND documented in this encounter Plan of Treatment Not on filedocumented as of this encounter Visit Diagnoses Not on filedocumented in this encounter Care Teams Conceptor Relationship Specialty Start Date End Date Alisha Kimball MD PCP - General 07/08/05 [address] [place] [address] documented as of this encounter
--- OUTSIDE RECORDS SUMMARY | 2022-06-12 09:36 | XMS_ITS | Encounter Summary ---
:1955 Author Organization [facility] Address [address] [address] Care Team Providers Name Role Phone Alisha Kimball MD Primary Care Provider Reason for Visit Reason Comments Dental Hygiene No cc Encounter Details Date Type Department Care Team Description 06/09/2022 Office Visit [facility] Yaquelin Garcia Hygiene (No cc) [facility] [address] [address] [phone] Social History Tobacco Use Types Packs/Day Years Used Date Smoking Tobacco: Never Smokeless Tobacco: Never Alcohol Use Standard Drinks/Week Comments No 0 (1 standard drink = 0.6 oz pure alcoho l) Sex Assigned at Date Recorded Not on file documented as of this encounter Last Filed Vital Signs Vital Sign Reading Time Taken Comments Blood Pressure - - Pulse 55 06/09/2022 8:14 AM SHEET METAL OPERATOR Temperature - - Respiratory Rate - [...] her next visit! [facility] T METAL OPERATOR documented in this encounter Progress Notes Yaquelin [...] agreement with Malina Garcia DDS (License #: [id number]) CHART REVIEW: Reviewed with patient: Medical history, [...] RDH 06/09/2022, 9:01 AM --End of Note-- T METAL OPERATOR documented in this encounter Plan of Treatment Scheduled Orders Name Type Priority Associated Order Schedule Diagnoses PROPHYLAXIS-ADULT Dental Procedures Routine 1 Occ urrences RECALL starting 2021 PERIODIC ORAL Dental Procedures Routine 1 Occurre nces EVALUATION starting 2021 [id number] Dental Procedures Routine 1 Oc currences starting 2021 TOPICAL FLUORIDE Dental Procedures Routine 1 Occu rrences VARNISH starting 2021 documented as of this encounter Procedures Procedure Name Priority Date/Time Associated Diagnosis Comme nts PROPHYLAXIS-ADULT Routine 06/09/2022 8:10 AM SHEET METAL OPERATOR Chronic perio dontitis, RECALL localized, slight documented in this encounter Visit Diagnoses Diagnosis Chronic periodontitis, localized, slight - Primary documented in this encounter Care Teams Hot Mill Tin Roller Relationship Specialty Start Date End Date Alisha Kimball MD PCP - General 07/08/05 [address] [place] [address] documented as of this encounter
--- OUTSIDE RECORDS SUMMARY | 2022-06-12 09:36 | XMS_ITS | Encounter Summary ---
:1955 Author Organization [employer] Address [address] [address] Care Team Providers Name Role Phone Alisha Kimball MD Primary Care Provider Reason for Visit Reason Comments Dental Hygiene none Encounter Details Date Type Department Care Team Description 10/16/2021 Office Visit [facility] Addie Gonzalez ental Hygiene (none) Dentistry A, [facility] [address] [address] [phone] (Wo rk) Social History Tobacco Use Types [...] agreement with Josue Kerns DDS (License #: [id number]) CHART REVIEW: Reviewed with patient: Medical history, [...] Primary documented in this encounter Care Teams Unloading Checker Relationship Specialty Start Date End Date Alisha Kimball MD PCP - General 07/08/05 [address] [place] [address] documented as of this encounter
--- OUTSIDE RECORDS SUMMARY | 2022-06-12 09:36 | XMS_ITS | Encounter Summary ---
:1955 Author Organization [employer] Address [address] [place] [address] Care Team Providers Name Role Phone Alisha Kimball MD Primary Care Provider Reason for Visit Reason Comments Dental Exam none Dental Hygiene Encounter Details Date Type Department Care Team Description 06/12/2021 Office Visit [facility] Gonzalez, [facility] [address] [place] [address] Dental Exam (none); Dentistry [facility], Exam Dental Hygiene [address] [place] [address] Social History Tobacco Use Types [...] - - Pulse 61 06/12/2021 9:19 AM STICK FEEDER Temperature - - Respiratory Rate - [...] next visit! Thank you for choosing [facility]. K FEEDER documented in this encounter Progress Notes Jamaal [...] DDS 06/12/2021, 9:45 AM --End of Note-- K FEEDER Addie Gonzalez RDH - 06/12/2021 9:20 AM CST HYGIENE PROPHY NOTE COLLABORATIVE AGREEMENT: The patient consents to have charting, radiographs and prophylaxis by the dental hygienist performed with the understanding that this care is not a substitute for an examination by a dentist. These activities were performed under a collaborating agreement with Josue Kerns DDS (License #: [id number]) PROCEDURAL PAUSE: Patient identity verified: Yes Treatment [...] RDH 06/12/2021, 10:00 AM --End of Note-- K FEEDER documented in this encounter Plan of Treatment Not on filedocumented as of this encounter Procedures Procedure Name Priority Date/Time Associated Diagnosis Comme nts [id number] Routine 06/12/2021 9:20 AM STICK FEEDER Chronic charlie odontitis, localized, slight PERIODIC ORAL Routine 06/12/2021 9:20 AM STICK FEEDER Chronic periodont itis, EVALUATION localized, slight PROPHYLAXIS-ADULT Routine 06/12/2021 9:20 AM STICK FEEDER Chronic perio dontitis, RECALL localized, slight documented in this encounter Visit Diagnoses Diagnosis Chronic periodontitis, localized, slight - Primary documented in this encounter Care Teams Spray Cementer Relationship Specialty Start Date End Date Alisha Kimball MD PCP - General 07/08/05 [address] [place] [address] documented as of this encounter
--- OUTSIDE RECORDS SUMMARY | 2022-06-12 09:37 | XMS_ITS | Encounter Summary ---
:1955 Author Organization [employer] Address [address] [address] Care Team Providers Name Role Phone Alisha Kimball MD Primary Care Provider Reason for Visit Reason Comments Dental Hygiene cc none Encounter Details Date Type Department Care Team Description 06/13/2019 Office Visit [facility] Looney Dental Hygiene (cc Dentistry [address] [facility] none) [address] [place] [phone] Social History Tobacco Use Types Packs/Day Years Used Date Smoking Tobacco: Never Smokeless Tobacco: Never Alcohol Use Standard Drinks/Week Comments No 0 (1 standard drink = 0.6 oz pure alcoho l) Sex Assigned at Date Recorded Not on file documented as of this encounter Last Filed Vital Signs Vital Sign Reading Time Taken Comments Blood Pressure - - Pulse 108 06/13/2019 9:15 AM SOFTWARE SYSTEMS ENGINEER Temperature - - Respiratory Rate - - Oxygen Saturation - - Inhaled Oxygen Concentration - - Weight - - Height - - Body Mass Index - - documented in this encounter Patient Instructions Patient InstructionsKesha Gauman - 06/13/2019 9:10 AM CST Your next [...] next visit! Thank you for choosing [facility]. WARE SYSTEMS ENGINEER documented in this encounter Progress Notes Jamaal [...] in replacing missing teeth --End of Note-- WARE SYSTEMS ENGINEER Jamaal Cleveland DDS - 06/13/2019 9:10 AM [...] Guaman 06/13/2019, 9:49 AM --End of Note-- WARE SYSTEMS ENGINEER documented in this encounter Plan of Treatment Not on filedocumented as of this encounter Procedures Procedure Name Priority Date/Time Associated Diagnosis Comme nts PERIODIC ORAL EVALUATION Routine 06/13/2019 9:10 AM SOFTWARE SYSTEMS ENGINEER Locali zed gingivitis PROPHYLAXIS-ADULT RECALL Routine 06/13/2019 9:10 AM SOFTWARE SYSTEMS ENGINEER Locali zed gingivitis documented in this encounter Visit Diagnoses Diagnosis Localized gingivitis - Primary documented in this encounter Care Teams Molder Meat Relationship Specialty Start Date End Date Alisha Kimball MD PCP - General 07/08/05 [address] [place] [address] documented as of this encounter
--- OUTSIDE RECORDS SUMMARY | 2022-06-12 09:37 | XMS_ITS | Encounter Summary ---
:1955 Author Organization [facility] Address [address] [place] [address] Care Team Providers Name Role Phone Alisha Kimball MD Primary Care Provider Reason for Visit Reason Comments COVID Screening Encounter Details Date Type Department Care Team Description 01/01/2020 Telephone [facility] Alisha Steinberg MD COVID Screening [address] [facility]. [address] [place] [address] [place], [place] [phone] (Wo rk) Social History Tobacco Use Types [...] Patient information Best number to contact patient: [phone] Reason for Call: COVID Screening/Testing Request In [...] MD PCP - General 07/08/05 [address] [place] [address] documented as of this encounter
--- OUTSIDE RECORDS SUMMARY | 2022-06-12 09:37 | XMS_ITS | Encounter Summary ---
:1955 Author Organization [employer] Address [address], [place] [address] Care Team Providers Name Role Phone Alisha Kimball MD Primary Care Provider Reason for Visit Reason Comments Dental Hygiene cc none Encounter Details Date Type Department Care Team Description 02/09/2019 Office Visit [facility] Regina Guaman Dental Hygiene (cc Dentistry [address] [facility] none) [address] [place] [phone] Social History Tobacco Use Types Packs/Day Years [...] induced documented in this encounter Care Teams Patent Leather Sorter Relationship Specialty Start Date End Date Alisha Kimball MD PCP - General 07/08/05 [address] [place] [address] documented as of this encounter
--- OUTSIDE RECORDS SUMMARY | 2022-06-12 09:37 | XMS_ITS | Encounter Summary ---
:1955 Author Organization [facility] Address [address] [place] [address] Care Team Providers Name Role Phone Alisha Kimball MD Primary Care Provider Encounter Details Date Type Department Care Team Description 01/03/2020 Lab Visit [facility] Type 2 diabetes mellitus [address] [facility] without complication, [place], [place] [address] without long-term current [phone] use of insulin (HRC) Social History Tobacco [...] Results Microalb/Creat Ratio (01/03/2020 11:20 AM CDT) [facility] Method Time Signature Albumin, 28.6 mg/L 01/03/2020 Contur Urine, Random 4:36 PM CDT CEN[facility]AL LAB Creatinine, 155 >20 mg/dL 01/03/2020 Contur Urine, Random 4:36 PM CDT CENTRAL LAB Albumin/Creati 18 <30 mg/g 01/03/2020 Contur nine Ratio, 4:36 PM T CENTRAL LAB Urine, Random Specimen Anatomical Collection Method Collection Time Receive d Time (Source) Location / / Volume Laterality Urine Non-blood 01/03/2020 11:20 01/03/2020 Collection / AM CDT 11:34 AM CDT Unknown Alisha Kimball MD LAB_1 Performing Organization Address City/State/ZIP Code Phon e Number [facility] [address] [address] documented in this encounter Visit Diagnoses Diagnosis Type 2 diabetes mellitus without complic ation, without long-term current use of insulin (HRC) documented in this encounter Care Teams Operations Research Analyst Relationship Specialty Start Date End Date Alisha Kimball MD PCP - General 07/08/05 [address] [place] [address] documented as of this encounter
--- OUTSIDE RECORDS SUMMARY | 2022-06-12 09:37 | XMS_ITS | Encounter Summary ---
:1955 Author Organization [facility] Address [address] [place] [address] Care Team Providers Name Role Phone Alisha Kimball MD Primary Care Provider Encounter Details Date Type Department Care Team Description 08/18/2019 Office Visit [facility] Dyspn ea on exertion Cardiac Non-Invasive Lab (Primary Dx) [address] [place], [place] [id number] Social History Tobacco Use Types Packs/Day Years [...] within one week. Please follow up with [facility] Cardiology clinic if you have not received your test results. PRODUCTION SUPERVISOR documented in this encounter Progress Notes Fernando [...] (FLONASE) 50 MCG/ACT nasal solution Place 1 [place] into both nostrils daily. decreaseto 1 spray [...] will follow up with Janice Taveras at [facility] Cardiology clinic. Discharge Instructions: follow up with Kaley Gill Test done with post secondary professional present: no 22 gauge IV catheter inserted [...] recommendations. Angie Fong RN 08/28/2019, 2:52 PM PRODUCTION SUPERVISOR documented in this encounter Plan of Treatment Not on filedocumented as of this encounter Procedures Procedure Name Priority Date/Time Associated Comments Diagnosis EJECTION FRACTION Routine 08/18/2019 8:14 AM Resu lts for this SKI PRODUCTION SUPERVISOR procedure are i n the results section. CARDIAC STRESS Routine 08/18/2019 8:14 AM Dyspnea on Results for this ECHOCARDIOGRAM SKI PRODUCTION SUPERVISOR exertion procedure are in the results section. documented in this encounter Results EJECTION FRACTION (08/18/2019 8:14 AM SKI PRODUCTION SUPERVISOR) P athologist Signature EF 60 % PROSOLV EF test type ECHO PROSOLV Specimen (Source) Anatomical Collection Method Collection Time Re ceived Time Location / / Volume Laterality 08/18/2019 8:14 AM SKI PRODUCTION SUPERVISOR Janice Gill PA-C [facility] STOCK CONTROLLER/RH Performing Organization Address City/State/ZIP Code Phon e Number PROSOLV [address] [place] [address] CARDIAC TREADMILL STRESS ECHOCARDIOGRAM (08/18/2019 8:14 AM SKI PRODUCTION SUPERVISOR) Specimen (Source) Anatomical Collection Method Collection Time Re ceived Time Location / / Volume Laterality 08/18/2019 8:14 AM SKI PRODUCTION SUPERVISOR Narrative PROSOLV - 08/18/2019 10:40 AM SKI PRODUCTION SUPERVISOR Contrast:Optison 3.0 ml ?Contrast Allergy:NO Indication: SOB [...] 133 85.8 % [place] [address] = Resting BP: 140 / 88 Peak [...] Phon e Number PROSOLV [address] [place] [address] documented in this encounter Visit Diagnoses Diagnosis Dyspnea on exertion - Primary Other dyspnea and respiratory abnormalit y documented in this encounter Care Teams Finishing Range Supervisor Relationship Specialty Start Date End Date Alisha Kimball MD PCP - General 07/08/05 [address] [place] [address] documented as of this encounter
--- OUTSIDE RECORDS SUMMARY | 2022-06-12 09:37 | XMS_ITS | Encounter Summary ---
:1955 Author Organization [employer] Address [address] [place] [address] Care Team Providers Name Role Phone Alisha Kimball MD Primary Care Provider Reason for Visit Reason Comments Medication Questions Encounter Details Date Type Department Care Team Description 07/01/2019 Telephone [facility] Alisha Kimball MD Medication Questions Practice [address] [place] [address] [place], [place] [phone] Social History Tobacco Use Types Packs/Day Years Used Date Smoking Tobacco: Never Smokeless Tobacco: Never Alcohol Use Standard Drinks/Week Comments No 0 (1 standard drink = 0.6 oz pure alcoho l) Sex Assigned at Date Recorded Not on file documented as of this encounter Nursing Notes Anitra Bustillos CMA - 07/03/2019 12:05 PM CST Pt informed and agreed w/ plan. K FITTER Alisha Kimball MD - 07/03/2019 11:21 AM CST OK. See orders. Call with problems or if increased palpitations. Thanks! Alisha Kimball MD K FITTER Anitra Bustillos CMA - 07/03/2019 9:53 AM CST Pt states she would like to try the atenolol please. Pended. K FITTER Alisha Kimball MD - 07/03/2019 8:48 AM CST If I change her to metoprolol tartrate, will need to take it twice daily. The atenolol will be once daily. Does she have a preference? Thanks! Alisha Kimball MD K FITTER Marysol Edward - 07/01/2019 3:54 PM CST ALTERNATIVE REQUESTED:PT PAYING $36 FOR METOP. PT REQUESTING LOWER OUT OF POCKET COST ATENOLOL 100 MG TABLET $9 - METOPROLOL TARTRATE 100 MG TAB $9 K FITTER documented in this encounter Plan of Treatment Not on filedocumented as of this encounter Visit Diagnoses Diagnosis Paroxysmal atrial fibrillation (HRC) - P rimary Atrial fibrillation documented in this encounter Care Teams Drill Grinder Relationship Specialty Start Date End Date Alisha Kimball MD PCP - General 07/08/05 [address] [place] [address] documented as of this encounter
--- OUTSIDE RECORDS SUMMARY | 2022-06-12 09:37 | XMS_ITS | Encounter Summary ---
:1955 Author Organization [facility] [employer] [facility] Address [address] [place] [address] Care Team Providers Name Role Phone Alisha Kimball MD Primary Care Provider Reason for Visit Reason Comments COVID Screening Encounter Details Date Type Department Care Team Description [facility] [address] [facility]. [address] [place] [address] [place], [place] [phone] (Wo rk) Social History Tobacco Use Types [...] Patient information Best number to contact patient: [phone] Reason for Call: COVID Screening/Testing Request In [...] on filedocumented in this encounter Care Teams Forging Machine Operator Relationship Specialty Start Date End Date Alisha iKmball MD PCP - General 07/08/05 [address] [place] [address] documented as of this encounter
--- OUTSIDE RECORDS SUMMARY | 2022-06-12 09:37 | XMS_ITS | Encounter Summary ---
:1955 Author Organization [facility] Address [address] [place] [address] Care Team Providers Name Role Phone Alisha [...] (HRC) [address] [place] [address] [place] [address] [phone] Social History Tobacco Use Types Packs/Day Years [...] take warfarin. [facility]. ?? Don't take warfarin if you are [...] These include aspirin and other pain relievers, jjjj-ilt-lmolooh medicines, multivitamins, dietary supplements, and herbal products. [...] Leafy greens, such as kale, cabbage, spinach, Pitcairn Islander chard, and lettuce. ?? Canola and soybean oils. ?? Green vegetables, such as asparagus, broccoli, and Erin sprouts. ?? Vegetable drinks, green tea leaves, [...] Where can you learn more? Go to [employer]waterworks and enter N172 in the search box. Current as of: September 13, 2013 Content Version: 10.1 ?? [id number] [employer]. documented in this encounter Progress Notes Alisha [...] fibrillation documented in this encounter Care Teams Fairing Man Relationship Specialty Start Date End Date Alisha Kimball MD PCP - General 07/08/[address] [place] [address] documented as of this encounter
--- OUTSIDE RECORDS SUMMARY | 2022-06-12 09:37 | XMS_ITS | Encounter Summary ---
:1955 Author Organization formerly [facility] Address [address] [place] [address] Care Team Providers Name Role Phone Alisha Kimball MD Primary Care Provider Reason for Referral Procedure/Equipment (Routine) - Incomplete Specialty Diagnoses / Procedures Referred By Contact Refer red To Contact Procedures Alisha Kimball MD MM Mammogram Screening [place] [address] [place] [address] Referral ID Status Reason Start Date Expiration Date Visits V isits Requested Authorized [id number] Incomplete 02/10/2019 05/11/2020 1 1 Reason for Visit Procedure/Equipment (Routine) - Incomplete Specialty Diagnoses / Procedures Referred By Contact Refer red To Contact Procedures Alisha Kimball MD MM Mammogram Screening [place] [address] [place] [address] Referral ID Status Reason Start Date Expiration Date Visits V isits Requested Authorized [id number] Incomplete 02/10/2019 05/11/2020 1 1 Encounter Details Date Type Department Care Team Description 02/10/2019 Ancillary Procedure [facility] Mammography [address] [facility] [place] [address] Social History Tobacco Use Types [...] on filedocumented in this encounter Care Teams Oil Inspector Relationship Specialty Start Date End Date Alisha Kimball MD PCP - General 07/08/05 [address] [place] [address] documented as of this encounter
--- OUTSIDE RECORDS SUMMARY | 2022-06-12 09:37 | XMS_ITS | Encounter Summary ---
:1955 Author Organization [employer] Address [address] [place] [address] Care Team Providers Name Role Phone Alisha Kimball MD Primary Care Provider Reason for Visit Reason Comments BP,ELEVATED Encounter Details Date Type Department Care Team Description 04/11/2020 Telephone [facility] Alisha Remy MD BP,ELEVATED [address] [facility] [address] [place] [address] [place] [address] (Wo rk) Social History Tobacco [...] pain, include location): Patient was seen at [facility] today, and had her BP checked. It was 167/136. Was told to call her clinic. What have you tried at home (please specify medication name, if any)? Patient on Losartan. Have you recently been seen for this? Yes: [Structural Worker/Appt Center: Refer to Symptoms Indicating Need for Triage list to determine urgency level and next steps - if Urgent or Routine, schedule appointment within the appropriate timeframe.If patient wants to speak to an RN, please warm transfer/route to RN for further triage.] [Structural Worker/Appt Center: Add/verify patient preferred pharmacy is highlighted in blue in the Pharmacy Selection under Meds & Orders] [Structural Worker/Appt Center: If this call is after 3 p.m., communicate to patient: If we are not able to get back to you by the end of the day and your symptoms worsen, please contact the Careline [phone] OR at .] Is it okay to leave a detailed message on your voicemail? Yes I can transfer you to talk to a Triage Nurse or I am happy to get you scheduled with your primary inspector health care facilities or one of their partners for a [...] hypertension documented in this encounter Care Teams Tire Rebuilder Relationship Specialty Start Date End Date Alisha Kimball MD PCP - General 07/08/05 [address] [place] [address] documented as of this encounter
--- OUTSIDE RECORDS SUMMARY | 2022-06-12 09:37 | XMS_ITS | Encounter Summary ---
:1955 Author Organization [facility] Address [address] [place] [address] Care Team Providers Name Role Phone Alisha Kimball MD Primary Care Provider Reason for Visit Procedure/Equipment (Routine) - Incomplete Specialty Diagnoses / Procedures Referred By Contact Refer red To Contact Diagnoses Screening for osteoporosis Alisha Kimball MD Procedures DEXA Bone Density Spine/Hip [address] [place] [address] Referral ID Status Reason Start Date Expiration Date Visits V isits Requested Authorized [id number] Incomplete 01/03/2020 04/03/2021 1 1 Encounter Details Date Type Department Care Team Description 02/22/2020 Ancillary [facility] Alisha Kimball Scre ening for Procedure 401 Bone Density osteoporosis [address] [facility] [id number] [place] [address] Social History Tobacco Use Types Packs/Day Years [...] Volume Narrative 02/22/2020 12:58 PM CDT Indication:Screening Spanish Teacher and Model of Instrument: VNG Demographics Age: 65 y.o. Gender: female Height [...] Alcohol 3units or more per day (on [employer]):No Currently smoking:No Other pertinent history: Dual-X-ray Absorptiometry [...] osteoporosis documented in this encounter Care Teams Bulk Pigment Reducer Relationship Specialty Start Date End Date Alisha Kimball MD PCP - General 07/08/05 [address] [place] [address] documented as of this encounter
--- OUTSIDE RECORDS SUMMARY | 2022-06-12 09:37 | XMS_ITS | Encounter Summary ---
:1955 Author Organization [employer] Address [address] [place] [address] Care Team Providers Name Role Phone Carroll Kimball MD Primary Care Provider Reason for Visit Reason Comments Refill ELIQUIS 5 MG tablet [Pharmac y Med Name: ELIQUIS 5 MG TABLET] Encounter Details Date Type Department Care Team Description 06/15/2019 Refill [facility] Carroll Kimball MD Refill (ELIQUIS 5 MG Practice [address] tablet [Pharmacy Med [address] [place] [address] Name: ELIQUIS 5 [place] [address] TABLET]) [phone] Social History Tobacco Use Types Packs/Day Years [...] be delegated. Last qualifying visit: 12/12/2018 (in [facility]) Next scheduled visit: None Last ordered by CARROLL KIMBALL: 06/16/2018 (364 days ago) QTY: 180, Refills: 3, Sig: take 1 tablet by mouth twice a day (unchanged) Powered by [employer], Reference: [id number], 06/15/2019 10:21:58 AM JET INSPECTOR, Pool: ARNOLD REFILL CAITLYN ([id number]) INSPECTOR documented in this encounter Plan of Treatment Not on filedocumented as of this encounter Visit Diagnoses Diagnosis Paroxysmal atrial fibrillation (HRC) Atrial fibrillation documented in this encounter Care Teams Communication Coordinator Relationship Specialty Start Date End Date Carroll Kimball MD PCP - General 07/08/05 [address] [place] [address] documented as of this encounter
--- OUTSIDE RECORDS SUMMARY | 2022-06-12 09:37 | XMS_ITS | Encounter Summary ---
:1955 Author Organization [employer] Address [address], [place] [address] Care Team Providers Name Role Phone Alisha Kimball MD Primary Care Provider Reason for Visit Reason Comments Dental Hygiene none Encounter Details Date Type Department Care Team Description 02/14/2020 Office Visit [facility] Yaquelin Garcia Hygiene (none) [facility] [address] [address] [phone] Social History Tobacco Use Types Packs/Day Years [...] collaborating agreement with Jamaal Cleveland DDS (License #:[id number]) PRESENTATION: Oral Hygiene: Good Plaque: Localized, light supra-gingival , interproximal, mandibular anterior and posterior buccal Calculus: Localized, moderate interproximal and mandibular anterior Stain: None Bleeding: None Gingival tissue: Normal Mucogingival concerns: Absent ACTIVITIES: Hand scale, Flossed all contacts and No romanian PATIENT EDUCATION: Caries risk, Periodontal risk, Oral [...] Name Priority Date/Time Associated Diagnosis Comme nts [id number] Routine 02/14/2020 10:20 AM Localized gingi vitis CDT PERIODIC ORAL EVALUATION Routine 02/14/2020 10:20 AM Localized gingivitis CDT PROPHYLAXIS-ADULT RECALL Routine 02/14/2020 10:20 AM Localized gingivitis CDT documented in this encounter Visit Diagnoses Diagnosis Localized gingivitis - Primary Gingivitis Chronic gingivitis, plaque induced documented in this encounter Care Teams Circuit Rider Relationship Specialty Start Date End Date Alisha Kimball MD PCP - General 07/08/05 [address] [place] [address] documented as of this encounter
--- OUTSIDE RECORDS SUMMARY | 2022-06-12 09:37 | XMS_ITS | Encounter Summary ---
:1955 Author Organization [employer] Address [address], [place] [address] Care Team Providers Name Role Phone Alisha Kimball MD Primary Care Provider Reason for Visit Reason Comments LAB TESTS, NOS Encounter Details Date Type Department Care Team Description 04/03/2020 Telephone [facility] Alisha Oneill MD LAB TESTS, NOS [address] [facility] [address] [place], [place] [address] [place] [address] [phone] (Wo rk) Social History Tobacco Use Types [...] (ABNORMAL) Hgb A1C (04/11/2020 8:48 AM CDT) [facility] gist Method Time Signature Hemoglobin A1C 7.2 (H) <=5.6 % 04/11/2020 [facility] 10:07 PM CDT CENTRAL LAB Specimen Anatomical Collection Method / Collection Time Recei dawn Time (Source) Location / Volume Laterality Blood Venipuncture / 04/11/2020 8:48 04/11/2020 8:48 Unknown AM CDT AM CDT Narrative [facility] - 04/11/2020 10:07 PM CDT For patients not previously diagnosed with diabetes: 5.7-6.4%: Increased risk for diabetes 6.5% and greater: Diagnostic for diabete s For patients diagnosed with diabetes: <8.0%: Goal of therapy for ages 18-75 Clinicians may recommend a higher or low er goal for specific individuals. Alisha Kimball MD LAB_1 Performing Organization Address City/State/ZIP Code Phon e Number [facility] [address] [address] documented in this encounter Visit Diagnoses Diagnosis Type 2 diabetes mellitus without complic ation, without long-term current use of insulin (HRC) - Primary Hypercholesterolemia Pure hypercholesterolemia documented in this encounter Care Teams Operator Vacuum Relationship Specialty Start Date End Date Alisha Kimball MD PCP - General 07/08/05 [address] [place] [address] documented as of this encounter
--- OUTSIDE RECORDS SUMMARY | 2022-06-12 09:37 | XMS_ITS | Encounter Summary ---
:1955 Author Organization [employer] Address [address], [place] [address] Care Team Providers Name Role Phone Alisha Kimball MD Primary Care Provider Reason for Visit Reason Comments BP CHECK,NURSE IMMUNIZATIONS Encounter Details Date Type Department Care Team Description 04/11/2020 Nursing Visit [facility] hypertension; Department Encounter for immunization [address] [place], [place] [address] Social History Tobacco Use [...] can you learn more? 1. Go to [email or web address] Oil [email or web address] GasraUnitask or [email or web address]/Eat LatinraUnitask. 2. Enter X567 in the search box. Current as of: June 18, 2019?Content Version: 12.4 ?? 5038-7192 [employer]. Care instructions adapted under license by your healthcare professional. If you have questions abouta medical condition or this instruction, always ask your healthcare professional. [employer] disclaims any warranty or liability for your [...] disease documented in this encounter Care Teams Radar Signal Processing Engineer Relationship Specialty Start Date End Date Alisha Kimball MD PCP - General 07/08/05 [address] [place] [address] documented as of this encounter
--- OUTSIDE RECORDS SUMMARY | 2022-06-12 09:37 | XMS_ITS | Encounter Summary ---
:1955 Author Organization [employer] Address [address] [place] [address] Care Team Providers Name Role Phone Alisha Kimball MD Primary Care Provider Reason for Visit Reason Comments BP CHECK,NURSE SHOT,FLU Encounter Details Date Type Department Care Team Description 03/28/2019 Nursing Visit [facility]ert hypertension; Department Encounter for immunization [address] [place], [place] [address] Social History Tobacco Use [...] can you learn more? 1. Go to [email or web address] or [email or web address] TVraRETC. 2. Enter X567 in the search box. Current as of: January 23, 2018 Content Version: 12.0 ?? 8821-0464 [employer]. Care instructions adapted under license by your healthcare professional. If you have questions about a medical condition or this instruction, always ask your healthcare professional. [employer] disclaims any warranty or liability for your [...] Not at goal today. Since normal at [facility], continue to watch. She will follow [...] disease documented in this encounter Care Teams Dish Maker Relationship Specialty Start Date End Date Alisha Kimball MD PCP - General 07/08/05 [address] [place] [address] documented as of this encounter
--- OUTSIDE RECORDS SUMMARY | 2022-06-12 09:37 | XMS_ITS | Encounter Summary ---
:1955 Author Organization [employer] Address [address] [place] [address] Care Team Providers Name Role Phone Carroll Avalos MD Primary Care Provider Reason for Visit Reason Comments Refill atorvastatin (LIPITOR) 10 MG tablet [Pharmacy Med Name: ATORVASTATIN 10 MG TABLET] Encounter Details Date Type Department Care Team Description [facility] Refill (atorvastatin [facility] [address] (LIPITOR) 10 [place] [address] [place] [address] [Pharmacy Med Name: [phone] (Wo rk) ATORVASTATIN 10 MG TABLET]) Social History Tobacco Use Types Packs/Day Years Used Date Smoking Tobacco: Never Smokeless Tobacco: Never Alcohol Use Standard Drinks/Week Comments No 0 (1 standard drink = 0.6 oz pure alcoho l) Sex Assigned at Date Recorded Not on file documented as of this encounter Nursing Notes Interface, Out fastDoveripts Prov Query - 08/16/2019 12:23 PM CST The patient chart could not be locked at 08/16/2019 12:23 PM by Vessel in order to process this refill request. Please try re-routing to attempt to retry processing through [employer]. PROCESSING SUPERVISOR Mickie Welsh RN - 08/16/2019 12:21 PM CST Accounting Professional discussed with pt. Pt states she needs both metformin and atorvastatin refilled. Pt states she takes 5mg of atorvastatin daily. Pt is going out of town for 2 weeks to [place] but then will schedule follow up with pcp when she returns. Mickie Welsh RN 08/16/2019, 12:23 PM PROCESSING SUPERVISOR Meaghan Briggs RN - 08/16/2019 12:00 PM [...] DAY Meaghan Briggs RN 08/16/2019, 12:00 PM PROCESSING SUPERVISOR Interface, Out Surescripts Prov Query - 08/15/2019 6:31 PM CST atorvastatin (LIPITOR) 10 MG tablet [Pharmacy Med Name: ATORVASTATIN 10 MG TABLET] Miscellaneous - 12 Month Visit -> Refill x 6 months, qty: 90, refills: 1 (until due for an office visit) Last qualifying visit: 12/12/2018 (in [facility]) Next scheduled visit: None Last ordered by CARROLL AVALOS K: 02/01/2018 (560 days ago) QTY: 90, Refills: 3, Sig: take 1 tablet by mouth every day (unchanged) Powered by [employer]essel, Reference: [id number], 08/15/2019 6:31:46 PM FISH PROCESSING SUPERVISOR, Pool: ARNOLD REFILL RN ([id number]) PROCESSING SUPERVISOR documented in this encounter Plan of Treatment Not on filedocumented as of this encounter Visit Diagnoses Not on filedocumented in this encounter Care Teams Director Embalmer Relationship Specialty Start Date End Date Carroll Avalos MD PCP - General 07/08/05 [address] [facility] [place] [address] documented as of this encounter
--- OUTSIDE RECORDS SUMMARY | 2022-06-12 09:37 | XMS_ITS | Encounter Summary ---
:1955 Author Organization [employer] Address [address] [place] [address] Care Team Providers Name Role Phone Alisha Kimball MD Primary Care Provider Reason for Visit Reason Comments Eye Exam Encounter Details Date Type Department Care Team Description 01/25/2020 Office Visit [facility] Eric Keller, OD Diabetes type 2, no ocular involvement ( HRC) (Primary Dx); [address] [place] [address] [place], [place] [phone] [address] Social History Tobacco Use Types Packs/Day Years [...] Presbyopia documented in this encounter Care Teams Pneumatic Tool Repairer Relationship Specialty Start Date End Date Alisha Kimball MD PCP - General 07/08/05 [address] [place] [address] documented as of this encounter
--- OUTSIDE RECORDS SUMMARY | 2022-06-12 09:37 | XMS_ITS | Encounter Summary ---
:1955 Author Organization [employer] Address [address], [place] [address] Care Team Providers Name Role Phone Carroll Kimball MD Primary Care Provider Reason for Visit Reason Comments Refill metFORMIN XR (GLUCOPHAGE XR) 500 MG 24 hour release tablet [Pharmacy Med Name: METFORMIN HCL ER 500 MG TABL ET] Encounter Details Date Type Department Care Team Description 07/03/2019 Refill [facility] Carroll Kimball MD Refill (metFORMIN XR Practice [address] (GLUCOPHAGE XR) 500 MG [address] [place] [address] 24 hour release tablet [place], [place] [id number] [Pharmacy Med Name: [phone] METFORMIN HCL ER 500 MG TABLET]) Social [...] CST per standing order Erlinda Dickerson RN SON ENGINEER Interface, Out Surescripts Prov Query - 07/03/2019 1:51 AM CST metFORMIN XR (GLUCOPHAGE XR) 500 MG 24 hour release tablet [Pharmacy Med Name: METFORMIN HCL ER 500 MG TABLET] Metformin -> Refill x 3 months (courtesy refill. overdue for an office visit) Last qualifying visit: 12/12/2018 ([facility]) Next scheduled visit: None Last ordered by CARROLL KIMBALL: 02/01/2019 (152 days ago) QTY: 360, Refills: 1, Sig: take 4 tabletsby mouth daily with breakfast. (unchanged) Cr: 1.02 mg/dL on 12/02/2018 Powered by localbacon, Reference: [id number], 07/03/2019 1:51:36 AM LEORA, Pool: ARNOLD REFILL CAITLYN ([id number]) SON ENGINEER documented in this encounter Plan of Treatment Not on filedocumented as of this encounter Visit Diagnoses Not on filedocumented in this encounter Care Teams Business English Instructor Relationship Specialty Start Date End Date Carroll Kimball MD PCP - General 07/08/05 [address] [place] [address] documented as of this encounter
--- OUTSIDE RECORDS SUMMARY | 2022-06-12 09:37 | XMS_ITS | Encounter Summary ---
:1955 Author Organization [employer] Address [address], [place] [address] Care Team Providers Name Role Phone Alisha Kimball MD Primary Care Provider Reason for Visit Reason Onset Date Comments Refill 01/09/2020 Encounter Details Date Type Department Care Team Description 01/09/2020 Refill [facility] maxi Alisha Kimball MD Refill [address] [facility]. [address] [place] [address] [place], [place] [id number] (Wo rk) Social History Tobacco Use Types [...] (HRC) documented in this encounter Care Teams Mdm Sr Relationship Specialty Start Date End Date Alisha iKmball MD PCP - General 07/08/05 [address] [place] [address] documented as of this encounter
--- OUTSIDE RECORDS SUMMARY | 2022-06-12 09:37 | XMS_ITS | Encounter Summary ---
:1955 Author Organization [employer] Address [address] [place] [address] Care Team Providers Name Role Phone Alisha Kimball MD Primary Care Provider Reason for Referral Procedure/Equipment (Routine) - Incomplete Specialty Diagnoses / Procedures Referred By Contact Refer red To Contact Diagnoses Screening for osteoporosis Alisha Kimball MD Procedures DEXA Bone Density Spine/Hip [address] [place] [address] Referral ID Status Reason Start Date Expiration Date Visits V isits Requested Authorized [id number] Incomplete 01/03/2020 04/03/2021 1 1 Reason for Visit Reason Comments ROUTINE HEALTH MAINTENANCE Welcome To Medicare FOLLOW-UP,DIABETES MEDICATION CHECK SKIN LESION left elbow NOISES IN THE EAR ADVANCE DIRECTIVES DISCUSSION pt has one at home Encounter Details Date Type Department Care Team Description 01/03/2020 Office Visit [place] Alisha Bui, Welcome to Medicare preventive visit (Primary Dx); Practice MD Encounter for routine adult health exami nation without abnormal findings; [address] Type 2 diabetes mellitus without complic ation, without long-term current use of insulin (HRC); [place] [address] [place] [address] Essential hypertension; [phone] Paroxysmal atri al fibrillation (HRC); (Work) Screening [...] can you learn more? 1. Go to https://[email or web address].Anyfi Networks/healthlibrary or FeedBurner/Dimelibrary. 2. Enter Y074 in the search box. Current as of: February 22, 2019?Content Version: 12.4 ?? [id number] [employer]. Care instructions adapted under license by your healthcare professional. If you have questions abouta medical condition or this instruction, always ask your healthcare professional. [employer]CL, [facility] disclaims any warranty or liability for your [...] can you learn more? 1. Go to https://[email or web address].Anyfi Networks/BioTrace Medical or FeedBurner/Floqq. 2. Enter K859 in the search box. Current as of: February 22, 2019?Content Version: 12.4 ?? [employer]. Care instructions adapted under license [...] doctor may recommend that you use an jxgl-oya-zvzscye treatment. These include salicylic acid or duct [...] make walking more comfortable. ?? Take an xccw-qzw-serkjer pain medicine, such as acetaminophen (Tylenol), ibuprofen [...] can you learn more? 1. Go to https://SafeTacMag.Anyfi Networks/healthlibrary or FeedBurner/Dimelibrary. 2. Enter K886 in the search box. Current as of: May 03, 2019?Content Version: 12.4 ?? [employer]. Care instructions adapted under license [...] covid-19 in July when she was in [place]. Wart left elbow. No treatment. Patient accompanied [...] IgG Antibody (Inhouse) 8. Common wart B07.8 15095 [employer] Benign Lesions; Up 14 Counseling and [...] Volume Narrative 02/22/2020 12:58 PM CDT Indication:Screening High Density Finishing Operator and Model of Instrument: WinWeb Demographics Age: 65 y.o. Gender: female Height [...] Alcohol 3units or more per day (on Dot [employer]):No Currently smoking:No Other pertinent history: Dual-X-ray Absorptiometry [...] IgG Antibody (Inhouse) (01/03/2020 9:17 AM CDT) [facility] Method Time Signature [id number] Negative Negative 01/03/2020 [facility] G Antibody 3:53 PM CDT LABORATORY Interp SARS CoV-2 0.01 01/03/2020 [facility] IgG Index 3:53 PM CDT LABORATORY SARS The magnitude of 01/03/2020 [facility] CoV-2-IgG the reported 3:53 PM CDT LABORATORY Index Index is not Comment indicative of the amount of antibody present in the patient sample. SARS The SARS-CoV-2 01/03/2020 [facility] CoV-2-IgG IgG assay is 3:53 PM CDT LABORATORY Comment 1 only for use under the Food and Drug Administration's Emergency Use Authorization (EUA). SARS Negative Results 01/03/2020 [facility] CoV-2-IgG do not rule out 3:53 PM CDT LABORATORY Comment 2 SARS-CoV-2 infection, particularly in those who have been in contact with the virus. Follow-up with a molecular diagnostic test should be considered to R/O infection. SARS Results from 01/03/2020 [facility] CoV-2-IgG antibody testing 3:53 PM CDT LABORATORY [...] Organization Address City/State/ZIP Code Phon e Number [facility] [address] [place] [address] Hemoglobin, Blood (01/03/2020 9:17 AM CDT) athologist Signature Hemoglobin 13.6 12.0 - 15.5 01/03/2020 [facility] g/dL 9:20 AM CDT LABORATORY Specimen Anatomical Collection Method / Collection Time Recei dawn Time (Source) Location / Volume Laterality Blood Venipuncture / 01/03/2020 9:17 01/03/2020 9:17 Unknown AM CDT AM CDT Alisha Kimball MD LAB_1 Performing Organization Address City/[facility]/ZIP Code Phon e Number [facility] [address] [place] [address] (ABNORMAL) ALT (SGPT) (01/03/2020 9:17 AM CDT) athologist Signature ALT (SGPT) 56 (H) 0 - 55 U/L 01/03/2020 [facility] 3:07 PM CDT [facility] Specimen Anatomical Collection Method / Collection Time Recei dawn Time (Source) Location / Volume Laterality Blood Venipuncture / 01/03/2020 9:17 01/03/2020 9:17 Unknown AM CDT AM CDT Alisha Kimball MD LAB_1 Performing Organization Address City/State/ZIP Code Phon e Number [facility] [address] [address] (ABNORMAL) Basic Metabolic Panel (01/03/2020 9:17 AM CDT) [facility] Method Time Signature Sodium 140 136 - 145 01/03/2020 [facility] mmol/L 3:07 PM CDT [facility]AL [facility] Potassium 4.8 3.5 - 5.1 01/03/2020 [facility] mmol/L 3:07 PM CDT [facility]AL [facility] Chloride 108 98 - 109 01/03/2020 [facility] mmol/L 3:07 PM CDT [facility] CO2 21 20 - 29 01/03/2020 [facility] mmol/L 3:07 PM CDT [facility] Anion Gap 11 7 - 16 01/03/2020 [facility] mmol/L 3:07 PM CDT [facility] Calcium 9.4 8.4 - 01/03/2020 [facility] 10.4 3:07 PM CDT C[facility]AL [facility] mg/dL BUN 18 7 - 26 01/03/2020 [facility] mg/dL 3:07 PM CDT [facility]AL LAB Creatinine 0.90 0.55 - 01/03/2020 [facility] 1.02 3:07 PM CDT C[facility]AL LAB mg/dL GFR, Estimated >60 >60 01/03/2020 [facility] mL/min/1. 3:07 PM CDT CENTRAL LAB 73m2 Glucose 132 (H) 70 - 100 01/03/2020 [facility] mg/dL 3:07 PM CDT CENTRAL LAB Comment: [...] Organization Address City/State/ZIP Code Phon e Number [facility] [address] [address] [facility] [address] [place], [place] [id number] [place] [address] (ABNORMAL) Lipid Panel and Direct LDL(If Needed) (01/03/2020 9:17 AM CDT) [facility] Method Time Signature Cholesterol 157 0 - 199 01/03/2020 [facility] mg/dL 3:07 PM CDT CENTRAL LAB Triglyceride 157 (H) <=149 01/03/2020 [facility] mg/dL 3:07 PM CDT [facility]AL LAB HDL Cholesterol 46 >=40 01/03/2020 [facility] mg/dL 3:07 PM CDT [facility]AL LAB LDL, Calculated 80 <130 01/03/2020 [facility] mg/dL 3:07 PM CDT [facility] Non HDL Chol, 111 mg/dL 01/03/2020 [facility] Calculated 3:07 PM CDT [facility]AL LAB Cholesterol/HDL 3.4 01/03/2020 [facility] Ratio 3:07 PM CDT [facility]AL LAB Hours Fasting 12 01/03/2020 [facility] 3:07 PM CDT LABORATORY Specimen Anatomical Collection Method / Collection Time Recei dawn Time (Source) Location / Volume Laterality Blood Venipuncture / 01/03/2020 9:17 01/03/2020 9:17 Unknown AM CDT AM CDT Alisha Kimball MD LAB_1 Performing Organization Address City/[facility] Phon e Number [facility] [address] [address] [facility] [address] [place] [address] (ABNORMAL) Hgb A1C (01/03/2020 9:17 AM CDT) [facility] Method Time Signature Hemoglobin A1C 7.6 (H) <=5.6 % 01/03/2020 [facility] 1:12 PM CDT C[facility]AL [facility] Specimen Anatomical Collection Method / Collection Time Recei dawn Time (Source) Location / Volume Laterality Blood Venipuncture / 01/03/2020 9:17 01/03/2020 9:17 Unknown AM CDT AM CDT Narrative [facility] - 01/03/2020 1:12 PM CDT For patients not previously diagnosed with diabetes: 5.7-6.4%: Increased risk for diabetes 6.5% and greater: Diagnostic for diabete s For patients diagnosed with diabetes: <8.0%: Goal of therapy for ages 18-75 Clinicians may recommend a higher or low er goal for specific individuals. Alisha Kimball MD LAB_1 Performing Organization Address City/State/ZIP Code Phon e Number [facility] C[facility]AL LAB [address] [place] [address] documented in this encounter Visit Diagnoses Diagnosis [...] osteoporosis documented in this encounter Care Teams Bleach Analyst Relationship Specialty Start Date End Date Alisha Kimball MD PCP - General 07/08/[address] [place] [address] documented as of this encounter
--- OUTSIDE RECORDS SUMMARY | 2022-06-12 09:37 | XMS_ITS | Encounter Summary ---
:1955 Author Organization [employer] Address [address] [place] [address] Care Team Providers Name Role Phone Carroll Avalos MD Primary Care Provider Encounter Details Date Type Department Care Team Description 04/11/2020 Lab Visit [place] Elevated liver enzymes (Primary Dx); Laboratory Essential hypertension; [address] [facility] TANNER (dyspnea on exertion); [place], [place] [address] Type 2 diabetes mellitus wit hout complication, without long-term current use of insulin (HRC); [phone] Hypercholestero lemia Social History Tobacco Use Types [...] (ABNORMAL) Microalb/Creat Ratio (04/11/2020 11:00 AM CDT) [facility] Method Time Signature Albumin, 72.7 mg/L 04/11/2020 [facility] Urine, Random 5:52 PM CDT CENTRAL LAB Creatinine, 129 >20 mg/dL 04/11/2020 [facility] Urine, Random 5:52 PM CDT CENTRAL LAB Albumin/Creati 56 (H) <30 mg/g 04/11/2020 [facility] nine Ratio, 5:52 PM CDT CENTRAL LAB Urine, Random Specimen Anatomical Collection Method Collection Time Receive d Time (Source) Location / / Volume Laterality Urine,random 04/11/2020 11:00 04/11/2020 AM CDT 12:31 PM CDT Kareen Cohen APRN, ISI LAB_1 Performing Organization Address City/State/ZIP Code Phon e Number [facility] [address] [phone] (ABNORMAL) Hgb A1C (04/11/2020 8:48 AM CDT) [employer] Method Time Signature Hemoglobin A1C 7.2 (H) <=5.6 % 04/11/2020 [facility] 10:07 PM CDT CENTRAL LAB Specimen Anatomical Collection Method / Collection Time Recei dawn Time (Source) Location / Volume Laterality Blood Venipuncture / 04/11/2020 8:48 04/11/2020 8:48 Unknown AM CDT AM CDT Narrative [facility] - 04/11/2020 10:07 PM CDT For patients not previously diagnosed with diabetes: 5.7-6.4%: Increased risk for diabetes 6.5% and greater: Diagnostic for diabete s For patients diagnosed with diabetes: <8.0%: Goal of therapy for ages 18-75 Clinicians may recommend a higher or low er goal for specific individuals. Carroll Avalos MD LAB_1 Performing Organization Address [facility] Phon e Number [facility]AL [facility] [address] [address] TSH with Free T4 (if TSH Abnormal) (04/11/2020 8:48 AM CDT) athologist Signature TSH, Reflex 3.02 0.30 - 04/11/2020 [facility] 4.50 11:53 AM CDT CENTRAL LAB uIU/mL Specimen Anatomical Collection Method / Collection Time Recei dawn Time (Source) Location / Volume Laterality Blood Venipuncture / 04/11/2020 8:48 04/11/2020 8:48 Unknown AM CDT AM CDT [facility] CENTRAL LAB - 04/11/2020 11:53 AM CDT Lab will automatically reflex to Free T4 when TSH results are <0.30 uIU/mL or >4.50 mIU/mL. Janice Gill PA-C LAB_1 Performing Organization Address [facility] e Number [facility] LAB [address] [place] [address] (ABNORMAL) ALT (SGPT) (04/11/2020 8:48 AM CDT) athologist Signature ALT (SGPT) 63 (H) 0 - 55 U/L 04/11/2020 [facility] 11:44 AM CDT CENTRAL LAB Specimen Anatomical Collection Method / Collection Time Recei dawn Time (Source) Location / Volume Laterality Blood Venipuncture / 04/11/2020 8:48 04/11/2020 8:48 Unknown AM CDT AM CDT Janice Gill PA-C LAB_1 Performing Organization Address [facility] e Number [facility] [address] [address] (ABNORMAL) BASIC METABOLIC PANEL (04/11/2020 8:48 AM CDT) [facility] gist Method Time Signature Sodium 139 136 - 145 04/11/2020 [facility] mmol/L 11:44 AM CDT CENTRAL LAB Potassium 4.6 3.5 - 5.1 04/11/2020 [facility] mmol/L 11:44 AM CDT CENTRAL LAB Chloride 105 98 - 109 04/11/2020 [facility] mmol/L 11:44 AM CDT CENTRAL LAB CO2 26 20 - 29 04/11/2020 [facility] mmol/L 11:44 AM CDT CENTRAL LAB Anion Gap 8 7 - 16 04/11/2020 [facility] mmol/L 11:44 AM CDT CENTRAL LAB Calcium 9.1 8.4 - 04/11/2020 [facility] 10.4 11:44 AM CDT CENTRAL LAB mg/dL BUN 16 7 - 26 04/11/2020 [facility] mg/dL 11:44 AM CDT CENTRAL LAB Creatinine 0.87 0.55 - 04/11/2020 [facility] 1.02 11:44 AM CDT CENTRAL LAB mg/dL GFR, Estimated >60 >60 04/11/2020 [facility] mL/min/1. 11:44 AM CDT CENTRAL LAB 73m2 Glucose 128 (H) 70 - 100 04/11/2020 [facility] mg/dL 11:44 AM CDT CENTRAL LAB Comment: The given reference range is fo r the fasting state. Non-fasting reference range for glucose is 70 - 180 mg/dL. Hours Fasting N/A 04/11/2020 11:[address] [facility] Specimen Anatomical Collection Method / Collection Time Recei dawn Time (Source) Location / Volume Laterality Blood Venipuncture / 04/11/2020 8:48 04/11/2020 8:48 Unknown AM CDT AM CDT Janice Gill PA-C LAB_1 Performing Organization Address City/State/ZIP Code Phon e Number [facility] [address] [address] [facility] [address] [place] [address], [facility] CBC (aka HEMOGRAM/PLTS) (04/11/2020 8:48 AM CDT) P athologist Signature WBC 7.1 3.5 - 10.5 04/11/2020 [facility] x10(9)/L 8:58 AM CDT LAB RBC 4.71 3.90 - 5.03 04/11/2020 [facility] x10(12)/L 8:58 AM CDT LAB Hemoglobin 13.9 12.0 - 15.5 04/11/2020 [facility] g/dL 8:58 AM CDT LAB HCT 42.3 34.9 - 44.5 04/11/2020 [facility] % 8:58 AM CDT LAB MCV 89.8 80.0 - 04/11/2020 [facility] 100.0 fL 8:58 AM CDT LAB MCH 29.5 27.6 - 33.3 04/11/2020 [facility] pg 8:58 AM CDT LAB MCHC 32.9 31.5 - 35.2 04/11/2020 [facility] g/dL 8:58 AM CDT LAB RDW 13.1 11.9 - 15.5 04/11/2020 [facility] % 8:58 AM CDT LAB Platelets 223 150 - 450 04/11/2020 [facility] x10(9)/L 8:58 AM CDT LAB Specimen Anatomical Collection Method / Collection Time Recei dawn Time (Source) Location / Volume Laterality Blood Venipuncture / 04/11/2020 8:48 04/11/2020 8:48 Unknown AM CDT AM CDT Janice Gill PA-C LAB_1 Performing Organization Address City/State/ZIP Code Phon e Number [facility] [address] [place] [address] documented in this encounter Visit [...] hypercholesterolemia documented in this encounter Care Teams Sanitation Worker Relationship Specialty Start Date End Date Carroll Avalos MD PCP - General 07/08/05 [address] [place] [address] documented as of this encounter
--- OUTSIDE RECORDS SUMMARY | 2022-06-12 09:37 | XMS_ITS | Encounter Summary ---
:1955 Author Organization [employer] Address [address] [place] [address] Care Team Providers Name Role Phone Alisha Kimball MD Primary Care Provider Reason for Visit Reason Comments COVID Screening Encounter Details Date Type Department Care Team Description [facility] [address] [facility] [address] [place] [address] [place], [place] [phone] (Wo rk) Social History Tobacco Use Types [...] Patient information Best number to contact patient: [phone] Reason for Visit: Other: F/U 1 YEAR [...] filedocumented in this encounter Care Teams Fleet Salesperson Relationship Specialty Start Date End Date Alisha Kimball MD PCP - General 07/08/05 [address] [place] [address] documented as of this encounter
--- OUTSIDE RECORDS SUMMARY | 2022-06-12 09:37 | XMS_ITS | Encounter Summary ---
:1955 Author Organization [facility] Address [address] [place] [address] Care Team Providers Name Role Phone Alisha Kimball MD Primary Care Provider Encounter Details Date Type Department Care Team Description 01/03/2020 Lab Visit [facility] Type 2 diabetes mellitus wit hout complication, without long-term current use of insulin ([facility]); [address] Essential hypertension; [place] [address] Paroxysmal atrial fibrillati on ([facility]); [phone] Immunity status testing Social History Tobacco Use [...] long-term current use sectio n. of insulin ([facility]) BASIC METABOLIC Routine 01/03/2020 9:17 AM Type 2 diabetes Res ults for this PANEL CDT mellitus without procedure a re in complication, without the re sults long-term current use sectio n. of insulin ([facility]) Essential hypertension HEMOGLOBIN, BLOOD Routine 01/03/2020 [...] Results Microalb/Creat Ratio (01/03/2020 11:20 AM CDT) [facility] Method Time Signature Albumin, 28.6 mg/L 01/03/2020 [facility] Urine, Random 4:36 PM CDT CEN[facility]AL LAB Creatinine, 155 >20 mg/dL 01/03/2020 [facility] Urine, Random 4:36 PM CDT CENTRAL LAB Albumin/Creati 18 <30 mg/g 01/03/2020 [facility] nine Ratio, 4:36 PM CDT CENTRAL LAB Urine, Random Specimen Anatomical Collection Method Collection Time Receive d Time (Source) Location / / Volume Laterality Urine Non-blood 01/03/2020 11:20 01/03/2020 Collection / AM CDT 11:34 AM CDT Unknown Alisha Kimball MD LAB_1 Performing Organization Address City/State/ZIP Code Phon e Number [facility] [address] [phone] SARS-CoV-2 IgG Antibody (Inhouse) (01/03/2020 9:17 AM CDT) [facility] Method Time Signature KNCW-UjT1-Hm Negative Negative 01/03/2020 [facility] G Antibody 3:53 PM CDT LABORATORY Interp SARS CoV-2 0.01 01/03/2020 [facility] IgG Index 3:53 PM CDT LABORATORY SARS The magnitude of 01/03/2020 [facility] CoV-2-IgG the reported 3:53 PM CDT LABORATORY Index Index is not Comment indicative of the amount of antibody present in the patient sample. SARS The SARS-CoV-2 01/03/2020 [facility] CoV-2-IgG IgG assay is 3:53 PM CDT LABORATORY Comment 1 only for use under the Food and Drug Administration's Emergency Use Authorization (EUA). SARS Negative Results 01/03/2020 [facility] CoV-2-IgG do not rule out 3:53 PM CDT LABORATORY Comment 2 SARS-CoV-2 infection, particularly in those who have been in contact with the virus. Follow-up with a molecular diagnostic test should be considered to R/O infection. SARS Results from 01/03/2020 [facility] CoV-2-IgG antibody testing 3:53 PM CDT LABORATORY [...] LAB_1 Performing Organization Address City/[facility]/ZIP Code [facility] e Number [facility] [address] [place] [address] Hemoglobin, Blood (01/03/2020 9:17 AM CDT) P athologist Signature Hemoglobin 13.6 12.0 - 15.5 01/03/2020 [facility] g/dL 9:20 AM CDT LABORATORY Specimen Anatomical Collection Method / Collection Time Recei dawn Time (Source) Location / Volume Laterality Blood Venipuncture / 01/03/2020 9:17 01/03/2020 9:17 Unknown AM CDT AM CDT Alisha Kimball MD LAB_1 Performing Organization Address City/[facility] e Number [facility] [address] [place], [place] [phone] (ABNORMAL) ALT (SGPT) (01/03/2020 9:17 AM CDT) P athologist Signature ALT (SGPT) 56 (H) 0 - 55 U/L 01/03/2020 [facility] 3:07 PM CDT CENTRAL LAB Specimen Anatomical Collection Method / Collection Time Recei dawn Time (Source) Location / Volume Laterality Blood Venipuncture / 01/03/2020 9:17 01/03/2020 9:17 Unknown AM CDT AM CDT Alisha Kimball MD LAB_1 Performing Organization Address City/[facility]/ZIP Code Phon e Number [facility]AL LAB [address] [address] (ABNORMAL) Basic Metabolic Panel (01/03/2020 9:17 AM CDT) [facility] Method Time Signature Sodium 140 136 - 145 01/03/2020 [facility] mmol/L 3:07 PM CDT CENTRAL LAB Potassium 4.8 3.5 - 5.1 01/03/2020 [facility] mmol/L 3:07 PM CDT CENTRAL LAB Chloride 108 98 - 109 01/03/2020 [facility] mmol/L 3:07 PM CDT C[facility]AL LAB CO2 21 20 - 29 01/03/2020 [facility] mmol/L 3:07 PM CDT [facility] Anion Gap 11 7 - 16 01/03/2020 [facility] mmol/L 3:07 PM CDT C[facility]TRAL LAB Calcium 9.4 8.4 - 01/03/2020 [facility] 10.4 3:07 PM CDT C[facility]AL LAB mg/dL BUN 18 7 - 26 01/03/2020 [facility] mg/dL 3:07 PM CDT C[facility]AL LAB Creatinine 0.90 0.55 - 01/03/2020 [facility] 1.02 3:07 PM CDT C[facility]AL LAB mg/dL GFR, Estimated >60 >60 01/03/2020 [facility] mL/min/1. 3:07 PM CDT CENTRAL LAB 73m2 Glucose 132 (H) 70 - 100 01/03/2020 [facility] mg/dL 3:07 PM CDT CENTRAL LAB Comment: [...] Address City/[facility]/ZIP Code Phon e Number [facility] [address] [address] [address] [place] [address], [facility] [phone] (ABNORMAL) Lipid Panel and Direct LDL(If Needed) (01/03/2020 9:17 AM CDT) [facility] Method Time Signature Cholesterol 157 0 - 199 01/03/2020 [facility] mg/dL 3:07 PM CDT C[facility]AL LAB Triglyceride 157 (H) <=149 01/03/2020 [facility] mg/dL 3:07 PM CDT [facility]AL LAB HDL Cholesterol 46 >=40 01/03/2020 [facility] mg/dL 3:07 PM CDT [facility] LDL, Calculated 80 <130 01/03/2020 [facility] mg/dL 3:07 PM CDT [facility] LAB Non HDL Chol, 111 mg/dL 01/03/2020 [facility] Calculated 3:07 PM CDT [facility]AL LAB Cholesterol/HDL 3.4 01/03/2020 [facility] Ratio 3:07 PM CDT [facility]AL LAB Hours Fasting 12 01/03/2020 [facility] 3:07 PM CDT LABORATORY Specimen Anatomical Collection Method / Collection Time Recei dawn Time (Source) Location / Volume Laterality Blood Venipuncture / 01/03/2020 9:17 01/03/2020 9:17 Unknown AM CDT AM CDT Alisha Kimball MD LAB_1 Performing Organization Address City/State/ZIP Code Phon e Number [facility]AL [facility] [address] [address] [facility] [address] [place] [address] [phone] (ABNORMAL) Hgb A1C (01/03/2020 9:17 AM CDT) [facility] Method Time Signature Hemoglobin A1C 7.6 (H) <=5.6 % 01/03/2020 [facility] 1:12 PM CDT CENTRAL LAB Specimen Anatomical Collection Method / Collection Time Recei dawn Time (Source) Location / Volume Laterality Blood Venipuncture / 01/03/2020 9:17 01/03/2020 9:17 Unknown AM CDT AM CDT Narrative [facility]AL [facility] - 01/03/2020 1:12 PM CDT For patients not previously diagnosed with diabetes: 5.7-6.4%: Increased risk for diabetes 6.5% and greater: Diagnostic for diabete s For patients diagnosed with diabetes: <8.0%: Goal of therapy for ages 18-75 Clinicians may recommend a higher or low er goal for specific individuals. Alisha Kimball MD LAB_1 Performing Organization Address City/State/ZIP Code Phon e Number [facility] [address] [phone] documented in this encounter Visit Diagnoses Diagnosis Type 2 diabetes mellitus without complic ation, without long-term current use of insulin ([facility]) Essential hypertension ([facility]) Unspecified essential hypertension Paroxysmal atrial fibrillation ([facility]) Atrial fibrillation Immunity status testing Antibody response examination documented in this encounter Care Teams Brushing Machine Operator Relationship Specialty Start Date End Date Alisha Kimball MD PCP - General 07/08/05 [address] [place] [address] documented as of this encounter
--- OUTSIDE RECORDS SUMMARY | 2022-06-12 09:37 | XMS_ITS | Encounter Summary ---
:1955 Author Organization [facility] Address [address], [place] [address] Care Team Providers Name Role Phone Alisha Kimball MD Primary Care Provider Reason for Visit Reason Comments COVID Screening Encounter Details Date Type Department Care Team Description 01/01/2020 Telephone [facility] Alisha Steinberg MD COVID Screening [address] [facility]. [address] [place] [address] [place] [address] (Wo rk) Social History Tobacco [...] Patient information Best number to contact patient: [phone] Reason for Call: COVID Screening/Testing Request In [...] on filedocumented in this encounter Care Teams Broaching Machine Set Up Operator Relationship Specialty Start Date End Date Alisha Kimball MD PCP - General 07/08/05 [address] [place] [address] documented as of this encounter
--- OUTSIDE RECORDS SUMMARY | 2022-06-12 09:38 | XMS_ITS | Encounter Summary ---
:1955 Author Organization [facility] Address [address] [place] [address] Care Team Providers Name Role Phone Carroll Avalos MD Primary Care Provider Reason for Visit Reason Comments Refill metFORMIN XR (GLUCOPHAGE XR) 500 MG 24 hour release tablet [Pharmacy Med Name: METFORMIN ER 500 MG TABLET] Encounter Details Date Type Department Care Team Description [facility] Refill (metFORMIN XR [address] [facility] [address] (GLUCOPHAGE XR) 500 [place] [address] [place] [address] 24 hour release tablet [phone] (Wo rk) [Pharmacy Med Name: METFORMIN ER [...] Cr check) Last qualifying visit: 12/07/2017 (in [facility]) Next scheduled visit: None Last ordered by CARROLL AVALOS K: 07/25/2018 (88 days ago) QTY: 360, Refills: 0, Sig: take 4 tablets by mouth daily with breakfast (unchanged) Cr: 0.86 mg/dL on 11/26/2017 HBA1C: 7.5 % on 07/28/2018 Powered by [employer], Reference: [id number], 10/21/2018 12:52:35 AM CDT, Pool: ARNOLD AMEZQUITA RN ([id number]) Interface, Out GeoGRAFI Query - 10/21/2018 12:52 AM CDT The following lab order(s) may be associated with the Result Note below: AST Notes Recorded by Dallas Nguyen RN on 11/26/2017 at 12:44 PM Letter sent with normal AST/ALT lab results. Dallas Nguyen RN 11/26/2017, 12:44 PM Interface, Out GeoGRAFI Query - 10/21/2018 12:52 AM CDT The following lab order(s) may be associated with the Result Note below: HGB A1C,POINT OF CARE Notes recorded by Marysol Carey, RN on 07/28/2018 at 4:44 PM SHREDDER PICKER Discussed during appointment with Dr. Bolden. Marysol Carey RN 07/28/2018, 4:44 PM documented in this encounter Plan of Treatment Not on filedocumented as of this encounter Visit Diagnoses Not on filedocumented in this encounter Care Teams Travel Trailer Components Assembler Relationship Specialty Start Date End Date Carroll Avalos MD PCP - General 07/08/05 [address] [facility] [place] [address] documented as of this encounter
--- OUTSIDE RECORDS SUMMARY | 2022-06-12 09:38 | XMS_ITS | Encounter Summary ---
:1955 Author Organization [facility] Address [address], [place] [address] Care Team Providers Name Role Phone Alisha Kimball MD Primary Care Provider Reason for Visit Reason Comments Dental Hygiene cc Encounter Details Date Type Department Care Team Description 10/11/2018 Office Visit [facility] Regina [address]aman [address] [address] [place] [address] Dental Hygiene (cc) Dentistry [facility], Exam [address] [place], [place] [address] Social History Tobacco Use [...] induced documented in this encounter Care Teams Diesel Engine Tester Relationship Specialty Start Date End Date Alisha Kimball MD PCP - General 07/08/05 [address] [place] [address] documented as of this encounter
--- OUTSIDE RECORDS SUMMARY | 2022-06-12 09:38 | XMS_ITS | Encounter Summary ---
:1955 Author Organization [facility] Address [address] [place] [address] Care Team Providers Name Role Phone Alisha Kimball MD Primary Care Provider Reason for Visit Reason Comments Consult, New Patient vertigo started sat. went to ER [place] Encounter Details Date Type Department Care Team Description 08/25/2018 [facility] D Perceived hearing changes (Primary Dx); [address] Sensorineural hearing loss ( SNHL) of both ears; [address] [place] [address] [place], [place] [phone] [address] Social History Tobacco Use Types Packs/Day [...] clinic with any questions or concerns at [phone], option 3. CTOR OF REGULATORY AFFAIRS documented in this encounter Progress Notes Margot [...] sensation but she does not have the sicsw-he-ojlfe spinning anymore. She said every time she [...] (FLONASE) 50 MCG/ACT nasal solution Place 1 [place] into both nostrils daily. decreaseto 1 spray [...] 90 Tablet 2 ??? neomycin-polymyxin B-hydrocortisone (CORTISPORIN) 3.5-67152-8 ear drop solution 3 Drops 4 times [...] ears H90.3 3. Bilateral impacted cerumen H61.23 [address] Removal Impact Cerumen 1/Both Ears 4. Vertigo [...] software and may contain unintended word substitutions. CTOR OF REGULATORY AFFAIRS documented in this encounter Plan of Treatment Not on filedocumented as of this encounter Visit Diagnoses Diagnosis Perceived hearing changes - Primary Other disorders of ear Sensorineural hearing loss (SNHL) of bot h ears Bilateral impacted cerumen Impacted cerumen documented in this encounter Care Teams Chief Of Harbor Patrol Relationship Specialty Start Date End Date Alisha Kimball MD PCP - General 07/08/05 [address] [place] [address] documented as of this encounter
--- OUTSIDE RECORDS SUMMARY | 2022-06-12 09:38 | XMS_ITS | Encounter Summary ---
:1955 Author Organization [facility] Address [address] [place] [address] Care Team Providers Name Role Phone Alisha Kimball MD Primary Care Provider Reason for Visit Reason Comments Blood Pressure, low LIGHTHEADEDNESS Encounter Details Date Type Department Care Team Description 09/21/2018 Nurse Triage [facility] Alisha Kimball, Blood Pr essure, low; Practice [facility] [address] [facility]. 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 She prefers to DC one of her B/P medications.Also to note has lost weight with [facility] weight loss program. Clinician sign order and [...] BP monitor) In S office and at [facility] 4. HISTORY: Do you have a [...] menstrual period? na Protocols used: LOW BLOOD [id number] Vero Robin - 09/21/2018 3:03 PM CDT Symptoms [Entry Level Accountant/Appt Center: If this call is after 3 p.m., communicate to patient: If we are not able to get back to you by the end of the day and your symptoms worsen, please contact the Careline [phone] OR at .] [Entry Level Accountant/Appt Center: Refer to Symptoms Indicating Need for [...] you recently been seen for this? No [Entry Level Accountant/Appt Center: Add/verify patient preferred pharmacy is highlighted [...] on filedocumented in this encounter Care Teams Casino Beverage Server Relationship Specialty Start Date End Date Alisha Kimball MD PCP - General 07/08/05 [address] [facility] [place] [address] documented as of this encounter
--- OUTSIDE RECORDS SUMMARY | 2022-06-12 09:38 | XMS_ITS | Encounter Summary ---
:1955 Author Organization [employer] Address [address] [place] [address] Care Team Providers Name Role Phone Alisha Kimball MD Primary Care Provider Encounter Details Date Type Department Care Team Description 12/16/2018 Lab Visit [facility] Type 2 diabetes mellitus [address] [facility] without complication, [place], [place] [address] without long-term current [phone] use of insulin (HRC) Social History Tobacco [...] (ABNORMAL) Microalbumin/Creatinine Ratio (12/16/2018 7:55 AM CDT) [facility] Method Time Signature Albumin, 64.8 mg/L 12/16/2018 [facility] Urine, Random 4:17 PM CDT CENTRAL LAB Creatinine, 209 >20 mg/dL 12/16/2018 [facility], Random 4:17 PM CDT C[facility]AL LAB Albumin/Creati 31 (H) <30 mg/g 12/16/2018 [facility] Ratio, 4:17 PM CDT CEN[facility]AL LAB Urine, Random Specimen Anatomical Collection Method Collection Time Receive d Time (Source) Location / / Volume Laterality Urine,random 12/16/2018 7:55 AM 9 7:55 CDT AM CDT Alisha Kimball MD LAB_1 Performing Organization Address City/State/ZIP Code Phon e Number [facility] LAB [address] [phone] documented in this encounter Visit Diagnoses Diagnosis Type 2 diabetes mellitus without complic ation, without long-term current use of insulin (HRC) documented in this encounter Care Teams Service Line Layer Relationship Specialty Start Date End Date Alisha Kimball MD PCP - General 07/08/05 [address] [place] [address] documented as of this encounter
--- OUTSIDE RECORDS SUMMARY | 2022-06-12 09:38 | XMS_ITS | Encounter Summary ---
:1955 Author Organization [employer] Address [address] [place] [address] Care Team Providers Name Role Phone Alisha Kimball MD Primary Care Provider Encounter Details Date Type Department Care Team Description 12/02/2018 Lab Visit [facility] Type 2 diabetes mellitus [address] [facility] without complication, [place], [place] [address] without long-term current [phone] use of insulin (HRC) Social History Tobacco [...] Basic Metabolic Panel (12/02/2018 7:34 AM CDT) [facility] Method Time Signature Sodium 138 136 - 145 12/02/2018 [facility] mmol/L 11:30 AM T CENTRAL LAB Potassium 4.6 3.5 - 5.1 12/02/2018 [facility] mmol/L 11:30 AM CDT CENTRAL LAB Chloride 104 98 - 109 12/02/2018 [facility] mmol/L 11:30 AM CDT CENTRAL LAB CO2 26 20 - 29 12/02/2018 [facility] mmol/L 11:30 AM CDT CENTRAL LAB Anion Gap 8 7 - 16 12/02/2018 [facility] mmol/L 11:30 AM CDT CENTRAL LAB Calcium 10.0 8.4 - 12/02/2018 [facility] 10.4 11:30 AM CDT CENTRAL LAB mg/dL BUN 28 (H) 7 - 26 12/02/2018 [facility] mg/dL 11:30 AM T CENTRAL LAB Creatinine 1.02 0.55 - 12/02/2018 [facility] 1.02 11:30 AM CDT CENTRAL LAB mg/dL GFR, Estimated 58 (L) >60 12/02/2018 [facility] mL/min/1. 11:30 AM T CENTRAL LAB 73m2 GFR, Est If >60 >60 12/02/2018 [facility] mL/min/1. 11:30 AM T CENTRAL LAB Maldivian 73m2 Glucose 108 (H) 70 - 100 12/02/2018 [facility] mg/dL 11:30 AM T CENTRAL LAB Comment: The given reference range is fo r the fasting state. Non-fasting reference range for glucose is 70 - 180 mg/dL. Hours Fasting 12 12/02/2018 11:30 AM T [facility] Specimen Anatomical Collection Method / Collection Time Recei dawn Time (Source) Location / Volume Laterality Blood Venipuncture / 12/02/2018 7:34 12/02/2018 7:34 Unknown AM CDT AM CDT Narrative [facility] CENTRAL LAB - 12/02/2018 11:30 AM CDT [...] MD LAB_1 Performing Organization Address [facility] Phon e Number [facility] C[facility]TRAL LAB [address] [address] [facility] [address] [place] [address], [place] Lipid Panel and Direct LDL(If Needed) (12/02/2018 7:34 AM CDT) [facility] Method Time Signature Cholesterol 167 0 - [...] CDT CENTRAL LAB Hours Fasting 12 12/02/2018 [facility] 11:30 AM CDT Specimen Anatomical Collection Method / Collection Time Recei dawn Time (Source) Location / Volume Laterality Blood Venipuncture / 12/02/2018 7:34 12/02/2018 7:34 Unknown AM CDT AM CDT Alisha Kimball MD LAB_1 Performing Organization Address City/[facility] Phon e Number [facility] [address] [address] [facility] [address] [place] [address], [place] (ABNORMAL) Hgb A1C (12/02/2018 7:34 AM CDT) [facility] [employer] Method Time Signature Hemoglobin A1C 6.7 (H) <=5.6 % 12/02/2018 [facility] 12:44 PM CDT C[facility]TRAL LAB Specimen Anatomical Collection Method / Collection Time Recei dawn Time (Source) Location / Volume Laterality Blood Venipuncture / 12/02/2018 7:34 12/02/2018 7:34 Unknown AM CDT AM CDT Narrative [facility] - 12/02/2018 12:44 PM CDT For patients not previously diagnosed with diabetes: 5.7-6.4%: Increased risk for diabetes 6.5% and greater: Diagnostic for diabete s For patients diagnosed with diabetes: <8.0%: Goal of therapy for ages 18-75 Clinicians may recommend a higher or low er goal for specific individuals. Alisha Kimball MD LAB_1 Performing Organization Address City/State/ZIP Code Phon e Number [facility] [address] [phone] documented in this encounter Visit Diagnoses Diagnosis Type 2 diabetes mellitus without complic ation, without long-term current use of insulin (HRC) documented in this encounter Care Teams Sheeter Waxer Operator Relationship Specialty Start Date End Date Alisha Kimball MD PCP - General 07/08/05 [address] [place] [address] documented as of this encounter
--- OUTSIDE RECORDS SUMMARY | 2022-06-12 09:38 | XMS_ITS | Encounter Summary ---
:1955 Author Organization [employer] [facility] Address [address] [place] [address] Care Team Providers Name Role Phone Alisha Kimball MD Primary Care Provider Reason for Visit Reason Comments Lab Orders Needed Encounter Details Date Type Department Care Team Description [facility]2018 [facility] [address] [place] [address] [place], [place] [phone] (Wo rk) Social History Tobacco Use Types [...] symptoms worsen please contact the Careline at [phone] OR at .] What order (Lab, Radiology, Specialty, DME, etc) is being requested? Pt requesting A1C labs prior to [facility] on 12/12 Why is this order being requested? Pt wanting to go over lab results at [facility] Have you been seen recently for this [...] Basic Metabolic Panel (12/02/2018 7:34 AM CDT) [facility] Method Time Signature Sodium 138 136 - 145 12/02/2018 [facility] mmol/L 11:30 AM CDT [facility] Potassium 4.6 3.5 - 5.1 12/02/2018 [facility] mmol/L 11:30 AM CDT [facility] Chloride 104 98 - 109 12/02/2018 [facility] mmol/L 11:30 AM CDT [facility] CO2 26 20 - 29 12/02/2018 [facility] mmol/L 11:30 AM CDT [facility] Anion Gap 8 7 - 16 12/02/2018 [facility] mmol/L 11:30 AM CDT [facility] Calcium 10.0 8.4 - 12/02/2018 [facility] 10.4 11:30 AM CDT [facility] mg/dL BUN 28 (H) 7 - 26 12/02/2018 [facility] mg/dL 11:30 AM CDT [facility] Creatinine 1.02 0.55 - 12/02/2018 [facility] 1.02 11:30 AM CDT [facility] mg/dL GFR, Estimated 58 (L) >60 12/02/2018 [facility] mL/min/1. 11:30 AM CDT [facility] 73m2 GFR, Est If >60 >60 12/02/2018 [facility] mL/min/1. 11:30 AM CDT [facility]AL [facility] Serbian 73m2 Glucose 108 (H) 70 - 100 12/02/2018 [facility] mg/dL 11:30 AM CDT [facility] Comment: The given reference range is fo r the fasting state. Non-fasting reference range for glucose is 70 - 180 mg/dL. Hours Fasting 12 12/02/2018 11:30 AM CDT [facility] Specimen Anatomical Collection Method / Collection Time Recei dawn Time (Source) Location / Volume Laterality Blood Venipuncture / 12/02/2018 7:34 12/02/2018 7:34 Unknown AM CDT AM CDT Narrative [facility] C[facility]TRAL [facility] - 12/02/2018 11:30 [...] Organization Address City/State/ZIP Code Phon e Number [facility] [address] [address] [place] [address] [place], [place] [phone] Lipid Panel and Direct LDL(If Needed) (12/02/2018 7:34 AM CDT) [facility] gist Method Time Signature Cholesterol 167 0 - 199 12/02/2018 [facility] mg/dL 11:30 AM CDT [facility] Triglyceride 146 <=149 12/02/2018 [facility] mg/dL 11:30 AM CDT [facility] HDL Cholesterol 44 >=40 12/02/2018 [facility] mg/dL 11:30 AM CDT [facility] LDL, Calculated 94 <130 12/02/2018 [facility] mg/dL 11:30 AM CDT [facility] Non HDL Chol, 123 <=159 12/02/2018 [facility] Calculated mg/dL 11:30 AM CDT [facility] Cholesterol/HDL 3.8 12/02/2018 [facility] Ratio 11:30 AM CDT [facility] Hours Fasting 12 12/02/2018 [place] [facility] 11:30 AM CDT Specimen Anatomical Collection Method / Collection Time Recei dawn Time (Source) Location / Volume Laterality Blood Venipuncture / 12/02/2018 7:34 12/02/2018 7:34 Unknown AM CDT AM CDT Alisha Kimball MD LAB_1 Performing Organization Address [facility] Phon e Number [facility] [address] [address] [place] [facility] [address] [place], [place] [phone], [facility] (ABNORMAL) Hgb A1C (12/02/2018 7:34 AM CDT) [facility] gist Method Time Signature Hemoglobin A1C 6.7 (H) <=5.6 % 12/02/2018 [facility] 12:44 PM CDT CENTRAL LAB Specimen Anatomical Collection Method / Collection Time Recei dawn Time (Source) Location / Volume Laterality Blood Venipuncture / 12/02/2018 7:34 12/02/2018 7:34 Unknown AM CDT AM CDT Narrative [facility] - 12/02/2018 12:44 PM CDT For patients not previously diagnosed with diabetes: 5.7-6.4%: Increased risk for diabetes 6.5% and greater: Diagnostic for diabete s For patients diagnosed with diabetes: <8.0%: Goal of therapy for ages 18-75 Clinicians may recommend a higher or low er goal for specific individuals. Alisha Kimball MD LAB_1 Performing Organization Address City/[facility] Phon e Number [facility] [address] [address] documented in this encounter Visit Diagnoses Diagnosis Type 2 diabetes mellitus without complic ation, without long-term current use of insulin (HRC) - Primary Screening for diabetes mellitus documented in this encounter Care Teams Social Services Relationship Specialty Start Date End Date Alisha Kimball MD PCP - General 07/08/[address] [place] [address] documented as of this encounter
--- OUTSIDE RECORDS SUMMARY | 2022-06-12 09:38 | XMS_ITS | Encounter Summary ---
:1955 Author Organization [facility] Address [address] [place] [address] Care Team Providers Name Role Phone Carroll Kimball MD Primary Care Provider Reason for Visit Reason Comments Refill metoprolol succinate (TOPROL -XL) 200 MG 24 hour release tablet [Pharmacy Med Name: METOPROLOL SUCC ER 200 MG TAB] Encounter Details Date Type Department Care Team Description 01/23/2019 Refill [facility] Carroll Kimball MD Refill (metoprolol Practice [address] succinate (TOPROL-XL) [address] [place] [address] 200 MG 24 hour release [place], [place] [id number] tablet [Pharmacy Med [phone] Name: MET OPROLOL SUCC ER 200 MG [...] office visit) Last qualifying visit: 12/12/2018 (in [facility]) Next scheduled visit: None Last ordered by CARROLL KIMBALL: 05/04/2018 (264 days ago) QTY: 90, Refills: 2, Sig: take 1 tablet by mouth daily at bedtime (changed but equivalent) Powered by Place[employer], Reference: [id number], 01/23/2019 7:41:13 AM CDT, Pool: ARNOLD REFILL RN ([id number]) documented in this encounter Plan of Treatment Not on filedocumented as of this encounter Visit Diagnoses Diagnosis Essential hypertension (HRC) Unspecified essential hypertension documented in this encounter Care Teams Conical Mixer Relationship Specialty Start Date End Date Carroll Kimball MD PCP - General 07/08/05 [address] [place] [address] documented as of this encounter
--- OUTSIDE RECORDS SUMMARY | 2022-06-12 09:38 | XMS_ITS | Encounter Summary ---
:1955 Author Organization [facility] Address [address] [place] [address] Care Team Providers Name Role Phone Alisha Kimball MD Primary Care Provider Encounter Details Date Type Department Care Team Description 08/25/2018 Orders Only [facility] Specialty No Center Audiology Primary/Referring, [address] [place] [address] Social History Tobacco Use Types Packs/Day Years [...] DIAGNOSTIC 08/25/2018 12:00 AM Results for this AUDIOLOGY DOCTOR procedure are i n the results section. documented in this encounter Results AUDIOLOGY DIAGNOSTIC (08/25/2018 12:00 AM AUDIOLOGY DOCTOR) Specimen (Source) Anatomical Location Collection Method / Collectio n Time Received Time / Laterality Volume 08/25/2018 Narrative This result has an attachment that is no t available. Phy No Primary/Referring DUMMY/OTHER/AR documented in this encounter Visit Diagnoses Not on filedocumented in this encounter Care Teams Plush Brusher Relationship Specialty Start Date End Date Alisha Kimball MD PCP - General 07/08/[address] [place], [place] [address] documented as of this encounter
--- OUTSIDE RECORDS SUMMARY | 2022-06-12 09:38 | XMS_ITS | Encounter Summary ---
:1955 Author Organization [facility] Address [address] [place] [address] Care Team Providers Name Role Phone Alisha Kimball MD Primary Care Provider Encounter Details Date Type Department Care Team Description 08/21/2018 Partner ED External to [facility], Provider DIZZINESS Social History Tobacco Use Types [...] on filedocumented in this encounter Care Teams Crop Or Grain Farmworker Relationship Specialty Start Date End Date Alisha Kimball MD PCP - General 07/08/[address] [place], [place] [id number] documented as of this encounter
--- OUTSIDE RECORDS SUMMARY | 2022-06-12 09:38 | XMS_ITS | Encounter Summary ---
:1955 Author Organization [facility] Address [address] [place] [address] Care Team Providers Name Role Phone Alisha Kimball MD Primary Care Provider Reason for Visit Reason Comments ENT Clinic Visit Encounter Details Date Type Department Care Team Description 08/25/2018 Office Visit [facility] Geraldine Ackerman (Primary Dx); Center Audiology GENESIS May Sensorineural hearing loss of both ears [address] [place] [address] [place], [place] [phone] [address] Social History Tobacco Use Types Packs/Day Years Used Date Smoking Tobacco: Never Smokeless Tobacco: Never Alcohol Use Standard Drinks/Week Comments No 0 (1 standard drink = 0.6 oz pure alcoho l) Sex Assigned at Date Recorded Not on file documented as of this encounter Patient Instructions Patient InstructionsGeraldine Ackerman AU.D. - 08/25/2018 9:00 AM CST Audiology/ENT Thank you for choosing [facility] for your ear and hearing needs. Your language specialist has provided you with written follow up [...] music. Hearing protection is available from all [facility] locations. Resources: Smoke and Carbon Monoxide detectors: Special smoke and carbon Monoxide alerting devices for individuals with hearing loss can be obtained from [employer] or www.RAD Technologies Telephone: Amplified Telephone products may be available to you at no charge through the [place] [employer] of [employer] Telephone Equipment Distribution program (eROI). This is an income based program. The phone number is [phone] (voice) or [phone] (TTY). www.Dizzion.Distil Networks. [facility] has printed WEN program information available upon request. Contact Information: [facility]. For questions regarding your visit please call [phone]. For a return audiology appointment, please call [phone]. If you require urgent after hours care, please call the Care Line at [phone]. RINTENDENT CUSTODIAN JANITOR documented in this encounter Progress Notes Geraldine Ackerman AU.D. - 08/25/2018 9:00 AM CST Subjective: Loc Velasco, 63 y.o. old female, comes in today for an ENT appointment with Dr. Stephens [facility] and audiometric testing is ordered. [...] a mild sensorineural hearing loss, bilaterally. Speech sales receptionist thresholds are in agreement with pure [...] ENT at scheduled appointment today. Genesis Mansfield Manager Business RINTENDENT CUSTODIAN JANITOR documented in this encounter Plan of Treatment Not on filedocumented as of this encounter Visit Diagnoses Diagnosis Vertigo - Primary Dizziness and giddiness Sensorineural hearing loss of both ears Sensorineural hearing loss, bilateral documented in this encounter Care Teams Complaint Specialist Relationship Specialty Start Date End Date Alisha Kimball MD PCP - General 07/08/05 [address] [place] [address] documented as of this encounter
--- OUTSIDE RECORDS SUMMARY | 2022-06-12 09:38 | XMS_ITS | Encounter Summary ---
:1955 Author Organization [facility] Address [address] [place] [address] Care Team Providers Name Role Phone Alisha Kimball MD Primary Care Provider Reason for Visit Reason Comments Ed Discharge Follow-up Encounter Details Date Type Department Care Team Description 09/21/[address] [facility] Alisha Kimball MD Ed Discharge Follow-up Practice [address] [place] [address] [place] [address] [phone] Social History Tobacco Use Types Packs/Day Years [...] on filedocumented in this encounter Care Teams Colorer Hides And Skins Relationship Specialty Start Date End Date Alisha Kimball MD PCP - General 07/08/05 [address] [place] [address] documented as of this encounter
--- OUTSIDE RECORDS SUMMARY | 2022-06-12 09:38 | XMS_ITS | Encounter Summary ---
:1955 Author Organization [facility] Address [address] [place] [address] Care Team Providers Name Role Phone Alisha Kimball MD Primary Care Provider Reason for Referral Consult/Transfer Care (Routine) - Closed Specialty Diagnoses / Procedures Referred By Contact Refer red To Contact Diagnoses Essential hypertension (HRC) Alisha Kimball MD [address] [place] [address] Referral ID Status Reason Start Date Expiration Date Visits Requ ested Visits Authorized [id number] Closed 12/12/2018 03/12/2020 1 1 Scheduling Instructions Your provider has recommended an appoint ment to follow up on your high blood pressure. It is best to schedule your ap pointment on the way out of the clinic. If you prefer, you may call your primary ca re clinic or a appointment scheduler will contact you to assist you in setting up this appointmen t. There are no co-pays for nurse blood pressure checks or medication therapy frankie ceja (clinical pharmacist). Reason for Visit Reason Comments ROUTINE HEALTH MAINTENANCE Encounter Details Date Type Department Care Team Description 12/12/2018 Office Visit [facility] Alisha Kimball Encounte r for routine adult health examination without abnormal findings (Primary Dx); Practice MD Type 2 diabetes mellitus without complic ation, without long-term current use of insulin (HRC); [address] Paroxysmal atrial fibrillation (HRC); [place] [address] [place] [address] Essential hypertension [phone] Social History Tobacco Use Types Packs/Day Years [...] can you learn more? 1. Go to https://APT Therapeutics/SoftArt or [employer]/i-dispo.com. 2. Enter Y074 in the search box. Current as of: June 16, 2018 Content Version: 12.0 ?? [id number] Droplet. Care instructions adapted under license by your healthcare professional. If you have questions about a medical condition or this instruction, always ask your healthcare professional. [employer] disclaims any warranty or liability for your [...] her blood pressure checked every week at [facility] and normal. No medication side [...] Not at goal today. Since normal at [facility], continue to watch. She will follow up on the nurse schedule in 2 weeks. 3. Atrial fibrillation. No ongoing symptoms. Continue Eliquis. Alisha Kimball MD documented in this encounter Plan of Treatment Scheduled Referrals Name Type Priority Associated Diagnoses Order S chedule Hypertension Follow Up Referral Routine Essential hyperten bobbi Ordered: 12/12/2018 ([id number]) documented as of this encounter Results (ABNORMAL) Microalbumin/Creatinine Ratio (12/16/2018 7:55 AM CDT) [facility] gist Method Time Signature Albumin, 64.8 mg/L 12/16/2018 [facility] Urine, Random 4:17 PM CDT CENTRAL LAB Creatinine, 209 >20 mg/dL 12/16/2018 [facility] Urine, Random 4:17 PM CDT CENTRAL LAB Albumin/Creati 31 (H) <30 mg/g 12/16/2018 [facility] nine Ratio, 4:17 PM CDT CENTRAL LAB Urine, Random Specimen Anatomical Collection Method Collection Time Receive d Time (Source) Location / / Volume Laterality Urine,random 12/16/2018 7:55 AM 9 7:55 CDT AM CDT Alisha Kimball MD LAB_1 Performing Organization Address City/State/ZIP Code Phon e Number [facility] CENTRAL LAB [address] [phone] documented in this encounter Visit Diagnoses Diagnosis Encounter for routine adult health exami nation without abnormal findings - Primary Type 2 diabetes mellitus without complic ation, without long-term current use of insulin (HRC) Paroxysmal atrial fibrillation (HRC) Atrial fibrillation Essential hypertension (HRC) Unspecified essential hypertension documented in this encounter Care Teams Training And Development Officer Relationship Specialty Start Date End Date Alisha Kimball MD PCP - General 07/08/05 [address] [place] [address] documented as of this encounter
--- OUTSIDE RECORDS SUMMARY | 2022-06-12 09:38 | XMS_ITS | Encounter Summary ---
:1955 Author Organization [facility] Address [address] [place] [address] Care Team Providers Name Role Phone Alisha Kimball MD Primary Care Provider Reason for Visit Reason Comments DIZZINESS VOMITING Encounter Details Date Type Department Care Team Description 08/21/2018 Nurse Triage Careline Unassigned, DIZZINESS; VOMITING [address] Provider [place], [place] [address] [place] [address] [place] [address] Social History Tobacco Use Types Packs/Day Years [...] right side, vomited. Protocols used: DIZZINESS - [id number] Plan: Pt to be seen in the ER. Pt verbalizes understanding and agrees with plan. Advised patient/caller to call back CareLine if there are further questions or concerns or to be seen if situation becomes emergent. The CareLine is available 25/01. Brandee Granger RN 08/21/2018, 8:34 AM US MONITOR Cheyenne Gutierrez - 08/21/2018 8:21 AM CST Verified patient identity using three identifiers: Yes Caller's relationship to patient: Self At which care system or clinic is the patient normally seen? [facility] Symptoms Describe the reason for call/symptoms (include location and duration if applicable): Last two days have been experiencing dizziness. Feel a little pressure on left side of ear. This morning felt very dizzy, and has vomiting this morning. Plan:Caller transferred directly to CareLine nurse. US MONITOR documented in this encounter Plan of Treatment Not on filedocumented as of this encounter Visit Diagnoses Not on filedocumented in this encounter Care Teams Filter Washer And Presser Relationship Specialty Start Date End Date Alisha Kimball MD PCP - General 07/08/05 [address] [place] [address] documented as of this encounter
--- OUTSIDE RECORDS SUMMARY | 2022-06-12 09:38 | XMS_ITS | Encounter Summary ---
:1955 Author Organization [facility] Address [address] [place] [address] Care Team Providers Name Role Phone Carroll Avalos MD Primary Care Provider Reason for Visit Reason Comments Refill metFORMIN XR (GLUCOPHAGE XR) 500 MG 24 hour release tablet; losartan (COZAAR) 50 MG tablet Encounter Details Date Type Department Care Team Description 02/01/2019 Telephone [facility] Carroll Avalos MD Refill (metFORMIN XR Practice [address] (GLUCOPHAGE XR) 500 MG [address] [place] [address] 24 hour release tablet; [place] [address] losartan (COZAAR) 50 MG [phone] tablet) Social History Tobacco Use Types Packs/Day [...] K check) Last qualifying visit: 12/12/2018 (in [facility]) Next scheduled visit: None Last ordered by CARROLL AVALOS K: 04/27/2018 (280 days ago) QTY: 90, Refills: 2, Sig: take 1 tablet by mouth every day (changed but equivalent) Cr: 1.02 mg/dL on 12/02/2018 K: 4.6 mEq/L on 12/02/2018 Powered by [employer], Reference: [id number], 02/01/2019 11:29:51 AM Luis Eduardo NOBLE: ARNOLD REFILL RN ([id number]) metFORMIN XR (GLUCOPHAGE XR) 500 MG 24 hour release tablet Metformin -> Refill x 6 months, qty: 360, refills: 1 (until due for an office visit) Last qualifying visit: 12/12/2018 (in [facility]) Next scheduled visit: None Last ordered by CARROLL AVALOS K: 10/24/2018 (100 days ago) QTY: 360, Refills: 0, Sig: take 4 tabletsby mouth daily with breakfast (changed but equivalent) Cr: 1.02 mg/dL on 12/02/2018 Powered by [employer], Reference: [id number], 02/01/2019 11:29:51 AM CDT, Pool: ARNOLD AMEZQUITA RN ([id number]) Electronically signed by Jorge, [place] [employer] Prov Query at 02/01/2019 1:16 PM CDT Mary De La O - 02/01/2019 11:27 AM CDT Patient needs this sent daniel today. documented in this encounter Plan of Treatment Not on filedocumented as of this encounter Visit Diagnoses Not on filedocumented in this encounter Care Teams Diesel Technician Relationship Specialty Start Date End Date Carroll Avalos MD PCP - General 07/08/05 [address] [place] [address] documented as of this encounter
--- OUTSIDE RECORDS SUMMARY | 2022-06-12 09:39 | XMS_ITS | Encounter Summary ---
:1955 Author Organization [facility] Address [address] [place] [address] Care Team Providers Name Role Phone Alisha Kimball MD Primary Care Provider Reason for Visit Reason Comments RASH Bilateral front of legs Encounter Details Date Type Department Care Team Description 09/08/2017 Office Visit [facility] Gonsalo Vernon (Pr imary Dx) Practice NAMRATA [place] [address] [place] [address] [place], [place] [address] [place], [place] [phone] [address] Social History Tobacco Use Types Packs/Day Years Used Date Smoking Tobacco: Never Smokeless Tobacco: Never Alcohol Use Standard Drinks/Week Comments No 0 (1 standard drink = 0.6 oz pure alcoho l) Sex Assigned at Date Recorded Not on file documented as of this encounter Last Filed Vital Signs Vital Sign Reading Time Taken Comments Blood Pressure 132/92 09/08/2017 8:42 AM PROSTHETICS TECHNICIAN Pulse 60 09/08/2017 8:42 AM PROSTHETICS TECHNICIAN Temperature - - Respiratory Rate 20 09/08/2017 8:42 AM PROSTHETICS TECHNICIAN Oxygen Saturation - - Inhaled Oxygen Concentration - - Weight - - Height - - Body Mass Index - - documented in this encounter Patient Instructions Patient InstructionsAlex Vernon MBBS - 09/08/2017 8:40 AM PROSTHETICS TECHNICIAN Images from the original note were not [...] interferes with your normal activities, take an nlhg-xbp-iofbnxf antihistamine, such as diphenhydramine (Benadryl) or loratadine [...] can you learn more? 1. Go to [employer] or [address]/R2integratedrary. 2. Enter U711 in the search box. Current as of: April 16, 2016 Content Version: 11.5 ?? [id number] E[employer]. Hives: Care Instructions Your Care Instructions [...] area to relieve itching. ?? Take an lbdj-ery-wlvoxlc antihistamine, such as diphenhydramine (Benadryl), cetirizine (Zyrtec), [...] can you learn more? 1. Go to [employer] or [address]/[employer]. 2. Enter K772 in the search box. Current as of: September 21, 2016 Content Version: 11.5 ?? [id number] [employer]. THETICS TECHNICIAN documented in this encounter Progress Notes Alex [...] more than 3 weeks at a time. Gxpk-lth-guihoui antihistamines to help with the itching. Cool compresses, cool to lukewarm showers. Follow up if there is no improvement over the next 1-2 weeks or worsening of symptoms. Follow up for any evidence of infection or new symptoms. Patient verbalizes understanding and agrees to plan. Please see orders and patient instructions NAMRATA Sharp THETICS TECHNICIAN documented in this encounter Plan of Treatment Not on filedocumented as of this encounter Visit Diagnoses Diagnosis Rash - Primary Rash and other nonspecific skin eruption documented in this encounter Care Teams Box Turner Relationship Specialty Start Date End Date Alisha Kimball MD PCP - General 07/08/05 [address] [place] [address] documented as of this encounter
--- OUTSIDE RECORDS SUMMARY | 2022-06-12 09:39 | XMS_ITS | Encounter Summary ---
:1955 Author Organization [facility] Address [address] [place] [address] Care Team Providers Name Role Phone Alisha Kimball MD Primary Care Provider Reason for Visit Reason Comments [facility] 5 Encounter Details Date Type Department Care Team Description 05/31/2018 Office Visit [facility] Charles [place] D[place] [address] [place] [address] [facility], Exam Services (5) [address] [place] [address] Social History Tobacco Use Types [...] Loc (63 y.o.) was seen today for [facility] (5) CHART REVIEW Reviewed [...] ??? 5 CROWN SEAT --End of Note-- RPTION PLANT OPERATOR HELPER documented in this encounter Plan of Treatment Not on filedocumented as of this encounter Procedures Procedure Name Priority Date/Time Associated Diagnosis Comme nts 5 CROWN SEAT Routine 05/31/2018 3:30 PM ABSORPTION PLANT OPERATOR HELPER Fracture of tooth enamel and dentin documented in this encounter Visit Diagnoses Diagnosis Fracture of tooth enamel and dentin - Pr imary documented in this encounter Care Teams Boat Outfitter Relationship Specialty Start Date End Date Alisha Kimball MD PCP - General 07/08/05 [address] [place] [address] documented as of this encounter
--- OUTSIDE RECORDS SUMMARY | 2022-06-12 09:39 | XMS_ITS | Encounter Summary ---
:1955 [facility] Address [address] [place] [address] Care Team Providers Name Role Phone Carroll Avalos MD Primary Care Provider Reason for Visit Reason Comments Refill metFORMIN XR (GLUCOPHAGE XR) 500 MG 24 hour release tablet [Pharmacy Med Name: METFORMIN ER 500 MG TABLET] Encounter Details Date Type Department Care Team Description 07/24/2018 [facility] Refill (metFORMIN XR [facility] [address] (GLUCOPHAGE XR) 500 [place] [address] [place] [address] 24 hour release tablet [phone] (Wo rk) [Pharmacy Med Name: METFORMIN ER [...] CST per standing order. Anne Neumann RN TECHNOLOGIST Interface, Out Surescripts Prov Query - 07/24/2018 [...] HBA1C: 8.2 % on 05/23/2018 Powered by [employer], Reference: [id number], 07/24/2018 8:19:59 AM SOIL TECHNOLOGIST, Pool: ARNOLD AMEZQUITA RN ([id number]) TECHNOLOGIST Interface, Out [facility] Query - 07/24/2018 8:20 AM CST The following lab order(s) may be associated with the Result Note below: AST Notes Recorded by Dallas Nguyen RN on 11/26/2017 at 12:44 PM Letter sent with normal AST/ALT lab results. Dallas Nguyen RN 11/26/2017, 12:44 PM TECHNOLOGIST documented in this encounter Plan of Treatment Not on filedocumented as of this encounter Visit Diagnoses Not on filedocumented in this encounter Care Teams Box Office Clerk Relationship Specialty Start Date End Date Carroll Avalos MD PCP - General 07/08/05 [address] [place] [address] documented as of this encounter
--- OUTSIDE RECORDS SUMMARY | 2022-06-12 09:39 | XMS_ITS | Encounter Summary ---
:1955 Author Organization [facility] Address [address] [place] [address] Care Team Providers Name Role Phone Alisha Kimball MD Primary Care Provider Reason for Visit Reason Comments Orders Needed Encounter Details Date Type Department Care Team Description 05/02/2018 Telephone [facility] Alisha Steinberg MD Orders Needed [address] [place] [address] [place], [place] [id number] (Wo rk) Social History Tobacco Use Types [...] (FLONASE) 50 MCG/ACT nasal solution Place 1 [place] into both nostrils daily. decreaseto 1 spray [...] 05/02/2018 10:42 AM CDT Orders - Laboratory [Hvac Estimator/Appt Center: If this call is after 3 p.m., communicate to patient: If we are not able to get back to you by the end of the day and your symptoms worsen please contact the Careline at [phone] OR at .] What lab order is [...] been seen recently for this concern? No [Hvac Estimator/Appt Center:If patient was seen at an outside location, please obtain records] Is it okay to leave a detailed message on your voicemail? Yes [Hvac Estimator/Appt Center: Instruct patient to check with insurance company for coverage] Is there anything else I can help you with today? Vero Robin Please route to: Care Team Pool documented in this encounter Plan of Treatment Not on filedocumented as of this encounter Visit Diagnoses Not on filedocumented in this encounter Care Teams Fruit Dryer Relationship Specialty Start Date End Date Alisha Kimball MD PCP - General 07/08/05 [address] [place] [address] documented as of this encounter
--- OUTSIDE RECORDS SUMMARY | 2022-06-12 09:39 | XMS_ITS | Encounter Summary ---
:1955 Author Organization [facility] Address [address] [place] [address] Care Team Providers Name Role Phone Alisha Kimball MD Primary Care Provider Reason for Visit Reason Comments INJURY, EYE Encounter Details Date Type Department Care Team Description 12/25/2017 Nurse Triage Careline Unknown, Physician INJURY, EYE [address] [place], [place] [address] [place] [address] [phone] (Wo rk) Social History Tobacco Use Types [...] last menstrual period? na Protocols used: EYE [id number] Dr. Gino Francisco paged at 12:50 PM Returned page at 1:04 PM Instructed to: Ciprofloxacin 0.3% one drop to affected eye QID for 7 days. Emerson Harris RN - 12/25/2017 12:43 PM CDT Verified patient identity using three identifiers: Yes J[facility] [address] Situation/Background (brief explanation of current symptoms/situation): Poked self with fingernail, bleeding on sclera. Diabetes, heart issues, on blood tinner and high blood pressure, several meds Johnna Hunt - 12/25/2017 10:07 AM CDT Verified patient identity using three identifiers: Yes Caller's relationship to patient: Self At which care system or clinic is the patient normally seen? [facility] Symptoms Describe the reason for call/symptoms [...] on filedocumented in this encounter Care Teams Shopping Investigator Relationship Specialty Start Date End Date Alisha Kimball MD PCP - General 07/08/05 [address] [place] [address] documented as of this encounter
--- OUTSIDE RECORDS SUMMARY | 2022-06-12 09:39 | XMS_ITS | Encounter Summary ---
:1955 Author Organization [facility] Address [address] [place] [address] Care Team Providers Name Role Phone Alisha Kimball MD Primary Care Provider Reason for Visit Reason Comments Lab Orders Needed Encounter Details Date Type Department Care Team Description 10/12/2017 Telephone [facility] maxi Alisha Kimball MD Lab Orders Needed [address] [place] [address] [place], [place] [phone] (Wo rk) Social History Tobacco Use Types [...] AM 8 7:33 CDT AM CDT Narrative [facility] - 11/26/2017 12:05 PM CDT Performed at [facility], [address] [place] [address] ??[id number] Alisha Kimball MD LAB_1 Performing Organization Address City/State/ZIP Code Phon e Number [facility] [phone] (ABNORMAL) Hgb A1c (11/26/2017 7:30 AM CDT) [...] - 11/26/2017 12:56 PM CDT Performed at [facility], [address] [place] [address] ??[id number] Alisha Kimball MD LAB_1 Performing Organization Address [facility] Phon e Number [facility] [phone] Lipid Panel and Direct LDL(If Needed) (11/26/2017 7:30 AM CDT) [facility] Method Time Signature Hours Fasting 12 [...] - 11/26/2017 12:05 PM CDT Performed at [facility], [address] [place] [address] ??[id number] Alisha Kimball MD LAB_1 Performing Organization Address [facility] Phon e Number [facility] [phone] documented in this encounter Visit Diagnoses Diagnosis [...] (HRC) documented in this encounter Care Teams [facility] [facility] Products Assembler Relationship Specialty Start Date End Date Alisha Kimball MD PCP - General 07/08/05 [address] [place] [address] documented as of this encounter
--- OUTSIDE RECORDS SUMMARY | 2022-06-12 09:39 | XMS_ITS | Encounter Summary ---
:1955 Author Organization [facility] Address [address], [place] [address] Care Team Providers Name Role Phone Alisha Kimball MD Primary Care Provider Reason for Visit Reason Comments Dental Exam none Dental Hygiene Encounter Details Date Type Department Care Team Description 09/17/2017 Office Visit [facility] Travis Turner Denta l Exam (none); Dentistry [facility] Dental Hygiene [address] [facility] [address] [facility] 103 [facility] 103 [place] [address] [place] [address] Social History Tobacco Use Types Packs/Day Years [...] should help you maintain this low risk. Donalds, we look forward to seeing you at your next visit! Thank you for choosing [facility]. documented in this encounter Progress Notes Travis Turner RDH - 09/17/2017 2:00 PM CDT PROPHY NOTE PROPHY/ASSESSMENT:78024::PROPHY NOTE Presentation ?? Oral Hygiene: normal ?? [...] ORAL EVALUATION Chief Complaint: Treatment Options: ??? [id number] Montse Leblanc DDS - 09/17/2017 2:00 PM [...] Name Priority Date/Time Associated Diagnosis Comme nts [id number] Routine 09/17/2017 2:54 PM CDT Chronic charlie odontitis, localized, slight PERIODIC ORAL Routine 09/17/2017 2:54 PM CDT Chronic periodont itis, EVALUATION localized, slight PROPHYLAXIS-ADULT Routine 09/17/2017 2:54 PM CDT Chronic perio dontitis, RECALL localized, slight 20 EXISTING ROOT CANAL Routine 10/02/2011 11:00 PM TREATMENT CDT 15 EXISTING PFM CROWN Routine 07/09/2009 12:00 AM LICENSED LOAN OFFICER ASSISTANT 19 EXISTING PFM CROWN Routine 07/09/2009 12:00 AM LICENSED LOAN OFFICER ASSISTANT 20 EXISTING PFM CROWN Routine 07/09/2009 12:00 AM LICENSED LOAN OFFICER ASSISTANT 5 DO EXISTING AMALGAM Routine 07/09/2009 12:00 AM FILLING LICENSED LOAN OFFICER ASSISTANT 21 DO EXISTING AMALGAM Routine 07/09/2009 12:00 AM FILLING LICENSED LOAN OFFICER ASSISTANT 13 DO EXISTING AMALGAM Routine 07/09/2009 12:00 AM FILLING LICENSED LOAN OFFICER ASSISTANT 2 MO EXISTING AMALGAM Routine 07/09/2009 12:00 AM FILLING LICENSED LOAN OFFICER ASSISTANT 2 L EXISTING AMALGAM Routine 07/09/2009 12:00 AM FILLING LICENSED LOAN OFFICER ASSISTANT 4 MOD EXISTING AMALGAM Routine 07/09/2009 12:00 AM FILLING LICENSED LOAN OFFICER ASSISTANT 29 O EXISTING AMALGAM Routine 07/09/2009 12:00 AM FILLING LICENSED LOAN OFFICER ASSISTANT documented in this encounter Visit Diagnoses Diagnosis Chronic periodontitis, localized, slight - Primary Gingivitis, chronic, non-plaque induced Chronic gingivitis, non-plaque induced Fractured dental adventism with loss o f material Fractured dental restorative material wi th loss of material Tooth fracture Open wound of tooth (broken) (fractured) (due to trauma), without mention of complication Visit for periodic health examination Unspecified general medical examination Pulp necrosis Necrosis of dental pulp Tooth sensitivity Other specified diseases of hard tissues of teeth Open margin on tooth adventism Open adventism margins Caries of dentin Dental caries extending into dentine Periodontal disease Unspecified gingival and periodontal dis ease documented in this encounter Care Teams Felling Machine Operator Relationship Specialty Start Date End Date Alisha Kimball MD PCP - General 07/08/05 [address] [place] [address] documented as of this encounter
--- OUTSIDE RECORDS SUMMARY | 2022-06-12 09:39 | XMS_ITS | Encounter Summary ---
:1955 Author Organization [facility] Address [address], [place] [address] Care Team Providers Name Role Phone Alisha Kimball MD Primary Care Provider Reason for Visit Reason Comments Dental Hygiene none Encounter Details Date Type Department Care Team Description 02/07/2018 Office Visit [facility] Tiffanie Fletcher [address] [place], [place] [phone] Dental Hygiene (none) Dentistry [place], Exam [address] [place] [address] Social History Tobacco Use Types [...] the dentist; dental hygienist or dental assistant at surgery Specific information about what causes periodontal disease [...] should help you maintain this low risk. Reading, we look forward to seeing you at your next visit! Thank you for choosing [facility]. documented in this encounter Progress Notes Janiya Fletcher - 02/07/2018 8:50 AM CDT PROPHY NOTE PROPHY/ASSESSMENT:38173::PROPHY NOTE Collaborative Agreement Patient consents to have [...] Primary documented in this encounter Care Teams Marshmallow Machine Worker Relationship Specialty Start Date End Date Alisha Kimball MD PCP - General 07/08/05 [address] [place] [address] documented as of this encounter
--- OUTSIDE RECORDS SUMMARY | 2022-06-12 09:39 | XMS_ITS | Encounter Summary ---
:1955 Author Organization [facility] Address [address] [place] [address] Care Team Providers Name Role Phone Carroll Avalos MD Primary Care Provider Reason for Visit Reason Comments Refill losartan (COZAAR) 50 MG tabl et [Pharmacy Med Name: LOSARTAN POTASSIUM 50 MG TAB] Encounter Details Date Type Department Care Team Description [facility] Refill (losartan [address] [facility] [address] (COZAAR) 50 [place] [address] [place] [address] [Pharmacy Med Name: [phone] (Wo rk) LOSARTAN POTASSIUM 50 MG TAB]) [...] K check) Last qualifying visit: 12/07/2017 ([facility]) Next scheduled visit: None Last ordered by CARROLL AVALOS K: 05/11/2017 (351 days ago) QTY: 90, Refills: 3, Sig: take one tabletby mouth every day (changed but equivalent) SBP: 134 mm Hg on 04/25/2018 DBP: 88 mm Hg on 04/25/2018 Cr: 0.86 mg/dL on 11/26/2017 K: 4.3 mEq/L on 11/26/2017 Powered by [employer], Reference: [id number], 04/27/2018 1:37:43 AM CDT, Pool: ARNOLD AMEZQUITA RN ([id number]) Interface, Out [facility] Query - 04/27/2018 1:37 AM CDT The following lab order(s) may be associated with the Result Note below: AST Notes Recorded by Dallas Nguyen RN on 11/26/2017 at 12:44 PM Letter sent with normal AST/ALT lab results. Dallas gNuyen RN 11/26/2017, 12:44 PM documented in this encounter Plan of Treatment Not on filedocumented as of this encounter Visit Diagnoses Not on filedocumented in this encounter Care Teams Computer Forensics Technician Relationship Specialty Start Date End Date Carroll Avalos MD PCP - General 07/08/05 [address] [place] [address] documented as of this encounter
--- OUTSIDE RECORDS SUMMARY | 2022-06-12 09:39 | XMS_ITS | Encounter Summary ---
:1955 Author Organization [facility] Address [address] [address] Care Team Providers Name Role Phone Alisha Kimball MD Primary Care Provider Reason for Visit Reason Comments Disease Registry Encounter Details Date Type Department Care Team Description 09/28/2017 Telephone [facility] Alisha Steinberg MD Disease Registry [address] [facility]. [address] [place] [address] [place], [place] [phone] (Wo rk) Social History Tobacco Use Types [...] on filedocumented in this encounter Care Teams Interior Wall Assembler Relationship Specialty Start Date End Date Alisha Kimball MD PCP - General 07/08/05 [address] [place] [address] documented as of this encounter
--- OUTSIDE RECORDS SUMMARY | 2022-06-12 09:39 | XMS_ITS | Encounter Summary ---
:1955 Author Organization [facility] Address [address] [place] [address] Care Team Providers Name Role Phone Alisha Kimball MD Primary Care Provider Reason for Visit Reason Comments Consult, New Patient Diabetes Consult/Transfer Care (Routine) - Closed Specialty Diagnoses / Procedures Referred By Contact Refer red To Contact Diagnoses Type 2 diabetes mellitus without complication, without long-term current use of insulin (HRC) Alisha Kimball MD [address] [place] [address] Referral ID Status Reason Start Date Expiration Date Visits Requ ested Visits Authorized [id number] Closed 07/26/2018 10/25/2019 1 1 Encounter Details Date Type Department Care Team Description 07/28/2018 Office Visit [facility] [address] Bolden, Type 2 diabetes Endocrinology Clinic MD mellitus without [address] complication, [place] [address] [place], [place] long-term current use [phone] of insulin (HRC) [phone] (Primary Dx) (Work) Social History Tobacco Use Types Packs/Day Years Used Date Smoking Tobacco: Never Smokeless Tobacco: Never Alcohol Use Standard Drinks/Week Comments No 0 (1 standard drink = 0.6 oz pure alcoho l) Sex Assigned at Date Recorded Not on file documented as of this encounter Last Filed Vital Signs Vital Sign Reading Time Taken Comments Blood Pressure 117/78 07/28/2018 1:09 PM FLARER Pulse 60 07/28/2018 1:09 PM FLARER Temperature - - Respiratory Rate - - Oxygen Saturation - - Inhaled Oxygen Concentration - - Weight 84.4 kg (186 lb) 07/28/2018 1:09 PM FLARER Height 162.6 cm (5' 4) 07/28/2018 1:09 PM FLARER Body Mass Index 31.93 07/28/2018 1:09 PM FLARER documented in this encounter Progress Notes Brock [...] PRN. Brock Bolden MD 07/28/2018, 2:45 PM ER Marysol Carey, RN - 07/28/2018 1:15 PM CST Discussed during appointment with Dr. Bolden. Marysol Carey, CAITLYN 07/28/2018, 4:44 PM ER documented in this encounter Nursing Notes Kian Hoffman, [facility] - 07/28/2018 1:15 PM CST How many [...] never used smokeless tobacco. Kian Hoffman CMA ER documented in this encounter Plan of Treatment Not on filedocumented as of this encounter Procedures Procedure Name Priority Date/Time Associated Diagnosis Comme nts HGB A1C,POINT OF Routine 07/28/2018 2:30 PM Type 2 diabetes Re sults for this CARE FLARER mellitus without procedure a re in complication, the results without long-term section. current use of insulin (HRC) documented in this encounter Results (ABNORMAL) Hgb A1c, Point of Care (07/28/2018 2:30 PM FLARER) [facility] gist Method Time Signature Point of Care [...] Volume Laterality 07/28/2018 2:30 PM 9 4:23 FLARER PM FLARER Brock Bolden MD LAB_1 Performing Organization Address City/State/ZIP Code Phon e Number [facility] [phone] documented in this encounter Visit Diagnoses Diagnosis Type 2 diabetes mellitus without complic ation, without long-term current use of insulin (HRC) - Primary documented in this encounter Care Teams Auto Damage Estimator Relationship Specialty Start Date End Date Alisha Kimball MD PCP - General 07/08/05 [address] [place] [address] documented as of this encounter
--- OUTSIDE RECORDS SUMMARY | 2022-06-12 09:39 | XMS_ITS | Encounter Summary ---
:1955 Author Organization [facility] Address [address] [place] [address] Care Team Providers Name Role Phone Alisha Kimball MD Primary Care Provider Reason for Visit Reason Comments Refill metoprolol succinate (TOPROL -XL) 200 MG 24 hour release tablet [Pharmacy Med Name: METOPROLOL SUCC ER 200 MG TAB] Encounter Details Date Type Department Care Team Description 05/04/2018 Refill [facility] Alisha Kimball MD Refill (metoprolol Practice [address] succinate (TOPROL-XL) [address] [place] [address] 200 MG 24 hour release [place], [place] [id number] tablet [Pharmacy Med [phone] Name: MET OPROLOL SUCC ER 200 MG [...] office visit) Last qualifying visit: 12/07/2017 (in [facility]) Next scheduled visit: None Last ordered by BLANCA ALMAGUER S: 05/21/2017 (348 days ago) QTY: 90, Refills: 3, Sig: take 1 tab by mouth daily at bedtime. (changed but equivalent) SBP: 134 mm Hg on 04/25/2018 DBP: 88 mm Hg on 04/25/2018 Heart Rate: 61 bpm on 04/25/2018 Powered by [employer], Reference: [id number], 05/04/2018 11:35:31 AM CDT, Pool: ARNOLD AMEZQUITA RN ([id number]) documented in this encounter Plan of Treatment Not on filedocumented as of this encounter Visit Diagnoses Diagnosis Essential hypertension (HRC) Unspecified essential hypertension documented in this encounter Care Teams Sanitizer Relationship Specialty Start Date End Date Alisha Kimball MD PCP - General 07/08/05 [address] [place] [address] documented as of this encounter
--- OUTSIDE RECORDS SUMMARY | 2022-06-12 09:39 | XMS_ITS | Encounter Summary ---
:1955 Author Organization [facility] Address [address] [place] [address] Care Team Providers Name Role Phone Alisha Kimball MD Primary Care Provider Reason for Visit Reason Comments Problem Focused Exam UR bkn tooth Encounter Details Date Type Department Care Team Description 02/22/2018 Office Visit [facility] Jamaal Cleveland Pro blem Focused Exam Dentistry DDS (UR bkn tooth) [address] [facility] [id number] [place] [address] [phone] Social History Tobacco Use Types Packs/Day Years [...] palpation, perio wnl. PA is wnl. A [place] fx 5, old amalgam, previously noted incomplete [...] consent Procedures performed at this visit Sedative Restorationism ?? Tooth #(s): 5 OB ?? Liner/varnish [...] imary documented in this encounter Care Teams Clinical Care Coordinator Relationship Specialty Start Date End Date Alisha Kimball MD PCP - General 07/08/05 [address] [place] [address] documented as of this encounter
--- OUTSIDE RECORDS SUMMARY | 2022-06-12 09:39 | XMS_ITS | Encounter Summary ---
:1955 Author Organization [facility] Address [address] [place] [address] Care Team Providers Name Role Phone Alisha Kimball MD Primary Care Provider Reason for Visit Reason Onset Date Comments Refill 03/16/2018 Encounter Details Date Type Department Care Team Description 03/16/2018 [facility] Janice Whipple , PAMehreenC Refill Cardiology [address] [place] [address] Social History Tobacco Use Types Packs/Day Years [...] on filedocumented in this encounter Care Teams Administrative And Program Specialist Relationship Specialty Start Date End Date Alisha Kimball MD PCP - General 07/08/[address] [place], [place] [id number] documented as of this encounter
--- OUTSIDE RECORDS SUMMARY | 2022-06-12 09:39 | XMS_ITS | Encounter Summary ---
:1955 Author Organization [facility] Address [address], [place] [address] Care Team Providers Name Role Phone Alisha Kimball MD Primary Care Provider Reason for Visit Reason Comments Broken Tooth Encounter Details Date Type Department Care Team Description 02/22/2018 Telephone [facility] Unassigned, Provider Broken Tooth Dentistry [address] [place] [id number] [place] [address] Social History Tobacco Use Types Packs/Day Years [...] causing your problem? [] Accident [] Lost Nondenominational [x] Broken Tooth [] Chipped Tooth [] [...] on filedocumented in this encounter Care Teams Functional Skills Tutor Relationship Specialty Start Date End Date Alisha Kimball MD PCP - General 07/08/05 [address] [place] [address] documented as of this encounter
--- OUTSIDE RECORDS SUMMARY | 2022-06-12 09:39 | XMS_ITS | Encounter Summary ---
:1955 Author Organization [facility] Address [address] [place] [address] Care Team Providers Name Role Phone Alisha Kimball MD Primary Care Provider Encounter Details Date Type Department Care Team Description 12/02/2017 Notes/Orders [facility] [place], Type 2 diabetes mellitus [facility] Erendira [place] [address] without coma, without [phone] [place] [address] insulin ([facility]) Social History Tobacco Use Types [...] long-term sect ion. current use of insulin ([facility]) documented in this encounter Results Microalb/Creat Ratio (12/02/2017 7:57 AM CDT) [facility] gist Method Time Signature Albumin, 2.3 mg/L [facility] Creatinine,Ur 46 mg/dl [facility] Alb/Creat 5 <30 mg/g [facility] Ratio, Urine, creatinine [facility] Random Specimen Anatomical Collection Method Collection Time Receive d Time (Source) Location / / Volume Laterality Urine specimen 12/02/2017 7:57 AM 018 7:58 (specimen) CDT AM CDT Narrative [facility] - 12/02/2017 1:00 PM C DT Performed at [facility], [address] [place] [address] ??[id number] Alisha Kimball MD LAB_1 Performing Organization Address City/State/ZIP Code Phon e Number [facility] [phone] documented in this encounter Visit Diagnoses Diagnosis Type 2 diabetes mellitus with hyperosmol arity without coma, without long-term current use of insulin ([facility]) documented in this encounter Care Teams Machine Presser Relationship Specialty Start Date End Date Alisha Kimball MD PCP - General 07/08/05 [address] [place] [address] documented as of this encounter
--- OUTSIDE RECORDS SUMMARY | 2022-06-12 09:39 | XMS_ITS | Encounter Summary ---
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 [address] [address] [facility] [phone] [place], [place] [id number] Social History Tobacco Use Types Packs/Day Years [...] ??? Diabetic Exam, Yearly RAMIN: 01/18 Dr. Kleler. Last A1C: 7.7 Last BS: 130 in [...] [facility] documented in this encounter Care Teams Bakery Demonstrator Relationship Specialty Start Date End Date Alisha Kimball MD PCP - General 07/08/05 [address] [place] [address] documented as of this encounter
--- OUTSIDE RECORDS SUMMARY | 2022-06-12 09:39 | XMS_ITS | Encounter Summary ---
:1955 Author Organization [facility] Address [address] [place] [address] Care Team Providers Name Role Phone Carroll Avalos MD Primary Care Provider Reason for Visit Reason Comments Refill atorvastatin (LIPITOR) 10 MG tablet [Pharmacy Med Name: ATORVASTATIN 10 MG TABLET] Encounter Details Date Type Department Care Team Description 02/01/2018 [facility]val[facility] Refill (atorvastatin 205 [facility] [address] (LIPITOR) 10 [place] [address] [place] [address] [Pharmacy Med Name: [phone] (Wo rk) ATORVASTATIN 10 MG TABLET]) Social [...] office visit) Last qualifying visit: 12/07/2017 (in [facility]) Next scheduled visit: None Last ordered by CARROLL AVALOS: 01/22/2017 (375 days ago) QTY: 90, Refills: 3, Sig: take one tabletby mouth every day (changed but equivalent) LDL: 96 mg/dL on 11/26/2017 Powered by [employer], Reference: [id number], 02/01/2018 1:04:55 AM CDT, Pool: ARNOLD AMEZQUITA RN ([id number]) Interface, Out BuildMyMove Prov Query - 02/01/2018 1:04 AM CDT [...] in this encounter Care Teams Head Of Sales Relationship Specialty Start Date End Date Carroll Avalos MD PCP - General 07/08/05 [address] [place] [address] documented as of this encounter
--- OUTSIDE RECORDS SUMMARY | 2022-06-12 09:39 | XMS_ITS | Encounter Summary ---
:1955 Author Organization [facility] Address [address] [place] [address] Care Team Providers Name Role Phone Alisha Kimball MD Primary Care Provider Reason for Visit Reason Comments [facility] 5 Encounter Details Date Type Department Care Team Description 05/13/2018 Office Visit [facility] [place] [address] [place] [address] [facility] [place] Exam Services (5) [address] [place] [address] Social History Tobacco Use Types [...] Loc (63 y.o.) was seen today for [facility] (5) CHART REVIEW Reviewed [...] ??? 5 [place] --End of Note-- AL CAR DELIVERER documented in this encounter Plan of Treatment Not on filedocumented as of this encounter Procedures Procedure Name Priority Date/Time Associated Diagnosis Comme nts 5 [place]OWN Routine 05/13/2018 3:01 PM RENTAL CAR DELIVERER Fracture of c rown, enamel, and dentin of tooth without pulp exposure documented in this encounter Visit Diagnoses Diagnosis Fracture of crown, enamel, and dentin of tooth without pulp exposure - Primary documented in this encounter Care Teams Rental Car Deliverer Relationship Specialty Start Date End Date Alisha Kimball MD PCP - General 07/08/05 [address] [place] [address] documented as of this encounter
--- OUTSIDE RECORDS SUMMARY | 2022-06-12 09:39 | XMS_ITS | Encounter Summary ---
:1955 Author Organization [facility] Address [address] [place] [address] Care Team Providers Name Role Phone Alisha Kimball MD Primary Care Provider Reason for Referral Procedure/Equipment (Routine) - Incomplete Specialty Diagnoses / Procedures Referred By Contact Refer red To Contact Procedures Alisha Kimball MD MM Mammogram Screening [facility] [address] [place] [address] Referral ID Status Reason Start Date Expiration Date Visits V isits Requested Authorized [id number] Incomplete 01/18/2018 04/19/2019 1 1 Reason for Visit Procedure/Equipment (Routine) - Incomplete Specialty Diagnoses / Procedures Referred By Contact Refer red To Contact Procedures Alisha Kimball MD MM Mammogram Scre[facility] [address] [place] [address] Referral ID Status Reason Start Date Expiration Date Visits V isits Requested Authorized [id number] Incomplete 01/18/2018 04/19/2019 1 1 Encounter Details Date Type Department Care Team Description 01/18/2018 Imaging [facility] ury Mammography [address] [place] [address] Social History Tobacco Use Types [...] on filedocumented in this encounter Care Teams Steward/Stewardess Club Car Relationship Specialty Start Date End Date Alisha Kimball MD PCP - General 07/08/05 [address] [place] [address] documented as of this encounter
--- OUTSIDE RECORDS SUMMARY | 2022-06-12 09:39 | XMS_ITS | Encounter Summary ---
:1955 Author Organization [employer] Address [address] [place] [address] Care Team Providers Name Role Phone Alisha Kimball MD Primary Care Provider Encounter Details Date Type Department Care Team Description 05/23/2018 Lab Visit [facility] Encounter for long-term [address] [address] [place] (current) use of [place], [place] [address] medications [phone] Social History Tobacco Use Types Packs/Day Years [...] 7:45 AM Encounter for Results for this INTERNSHIP long-term (current) procedur e are in use of medications the resul ts section. documented in this encounter Results (ABNORMAL) Hgb A1c (05/23/2018 7:45 AM INTERNSHIP) P athologist Signature Hgb A1c 8.2 (H) [...] Volume Laterality 05/23/2018 7:45 AM 8 7:46 INTERNSHIP AM INTERNSHIP Narrative [facility] - 05/23/2018 2:[address] Performed at [facility], [address] [place] [address] ??[id number] Alisha Kimball MD LAB_1 Performing Organization Address City/State/ZIP Code Phon e Number [facility] [phone] documented in this encounter Visit Diagnoses Diagnosis Encounter for long-term (current) use of medications Encounter for long-term (current) use of other medications documented in this encounter Care Teams Component Design Engineer Relationship Specialty Start Date End Date Alisha Kimball MD PCP - General 07/08/05 [address] [place] [address] documented as of this encounter
--- OUTSIDE RECORDS SUMMARY | 2022-06-12 09:39 | XMS_ITS | Encounter Summary ---
:1955 Author Organization [facility] Address [address], [place] [address] Care Team Providers Name Role Phone Alisha Kimball MD Primary Care Provider Reason for Visit Reason Comments Dental Hygiene none Encounter Details Date Type Department Care Team Description 06/10/2018 Office Visit [facility] Tiffanie Fletcher Dental Hygiene (none) Dentistry [address] [facility] [address] [place] [address] [phone] Social History Tobacco Use Types Packs/Day Years Used Date Smoking Tobacco: Never Smokeless Tobacco: Never Alcohol Use Standard Drinks/Week Comments No 0 (1 standard drink = 0.6 oz pure alcoho l) Sex Assigned at Date Recorded Not on file documented as of this encounter Last Filed Vital Signs Vital Sign Reading Time Taken Comments Blood Pressure 117/69 06/10/2018 10:55 AM BODY PRESS OPERATOR Pulse - - Temperature - - Respiratory [...] NEXT VISIT Next planned visit is recall aJniya Fletcher 06/10/2018, 11:07 AM Completed dental procedures in this visit There are no completed dental procedures in this visit. --End of Note-- PRESS OPERATOR documented in this encounter Plan of Treatment Not on filedocumented as of this encounter Procedures Procedure Name Priority Date/Time Associated Diagnosis Comme nts PROPHYLAXIS-ADULT Routine 06/10/2018 11:00 AM BODY PRESS OPERATOR Localized gi ngivitis RECALL documented in this encounter Visit Diagnoses Diagnosis Localized gingivitis - Primary Visit for periodic health examination Unspecified general medical examination documented in this encounter Care Teams Hub Borer Relationship Specialty Start Date End Date Alisha Kimball MD PCP - General 07/08/05 [address] [place] [address] documented as of this encounter
--- OUTSIDE RECORDS SUMMARY | 2022-06-12 09:39 | XMS_ITS | Encounter Summary ---
:1955 Author Organization [facility] Address [address] [place] [address] Care Team Providers Name Role Phone Alisha Kimball MD Primary Care Provider Reason for Visit Reason Comments Future Appointments Encounter Details Date Type Department Care Team Description 01/20/2018 [facility] MD Future Appointments 205 [facility] [address] [place] [address] [place], [place] [phone] (Wo rk) Social History Tobacco Use Types [...] 9:12 AM CDT Miscellaneous Questions & FYI's [Costume Mistress: If this call is after 3 p.m., communicate to patient: If we are not able to get back to you by the end of the day and your symptoms worsen please contact the Careline at [phone] at .] Is this a question/concern or [...] Yes Tita Escobar Please route to: None (paper spooler if unable to handle) documented in this encounter Plan of Treatment Not on filedocumented as of this encounter Visit Diagnoses Not on filedocumented in this encounter Care Teams Commercial Loan Specialist Relationship Specialty Start Date End Date Alisha Kimball MD PCP - General 07/08/05 [address] [place] [address] documented as of this encounter
--- OUTSIDE RECORDS SUMMARY | 2022-06-12 09:39 | XMS_ITS | Encounter Summary ---
:1955 Author Organization [facility] Address [address] [place] [address] Care Team Providers Name Role Phone Carroll Kimball MD Primary Care Provider Reason for Visit Reason Comments Refill amLODIPine (NORVASC) 5 MG ta blet [Pharmacy Med Name: AMLODIPINE BESYLATE 5 MG TAB] Encounter Details Date Type Department Care Team Description 04/28/2018 [facility] MD Refill (amLODIPine 205 [facility] [address] (NORVASC) 5 [place] [address] [place] [address] [Pharmacy Med Name: [phone] (Wo rk) AMLODIPINE BESYLATE 5 MG TAB]) [...] office visit) Last qualifying visit: 12/07/2017 (in [facility]) Next scheduled visit: None Last ordered by CARROLL KIMBALL: 05/11/2017 (352 days ago) QTY: 90, Refills: 3, Sig: take one tabletby mouth every day (changed but equivalent) SBP: 134 mm Hg on 04/25/2018 DBP: 88 mm Hg on 04/25/2018 Powered by [employer], Reference: [id number], 04/28/2018 1:40:49 AM CDT, Pool: ARNOLD REFILL RN ([id number]) documented in this encounter Plan of Treatment Not on filedocumented as of this encounter Visit Diagnoses Not on filedocumented in this encounter Care Teams Cooperative Manager Relationship Specialty Start Date End Date Carroll Kimball MD PCP - General 07/08/05 [address] [place] [address] documented as of this encounter
--- OUTSIDE RECORDS SUMMARY | 2022-06-12 09:39 | XMS_ITS | Encounter Summary ---
:1955 Author Organization [facility] Address [address] [place] [address] Care Team Providers Name Role Phone Alisha Kimball MD Primary Care Provider Encounter Details Date Type Department Care Team Description 04/27/2018 Refill Order [facility] Alisha Kimball MD 205 [facility] [address] [facility] [place] [address] [place] [address] (Wo rk) Social History Tobacco [...] to encounter. - LAST QUAL[facility]IT [facility]: 12/07/2017 - NEXT SCHEDULED VISIT: [...] You can schedule your appointment online at [employer] or by calling the appointment center at the phone number listed above. Thank you for choosing [facility] Powered by [employer], Reference: [id number], 04/27/2018 1:37:44 AM CDT, Pool: ARNOLD AMEZQUITA RN ([id number]) Interface, Out CPG Soft Query - 04/27/2018 1:37 AM CDT The [...] Results (ABNORMAL) Hgb A1c (05/23/2018 7:45 AM PLODDING OPERATOR) P athologist Signature Hgb A1c 8.2 (H) [...] Volume Laterality 05/23/2018 7:45 AM 8 7:46 PLODDING OPERATOR AM PLODDING OPERATOR Narrative [facility] - 05/23/2018 2:[address] Performed at [facility], [address] [place] [id number] Alisha Kimball MD LAB_1 Performing Organization Address City/State/[facility] Code Phon e Number [facility] [phone] documented in this encounter Visit Diagnoses Diagnosis Encounter for long-term (current) use of medications - Primary Encounter for long-term (current) use of other medications Encounter for long-term (current) use of medications Encounter for long-term (current) use of other medications documented in this encounter Care Teams Spanish Interpreter/Translator Relationship Specialty Start Date End Date Alisha Kimball MD PCP - General 07/08/05 [address] [place] [address] documented as of this encounter
--- OUTSIDE RECORDS SUMMARY | 2022-06-12 09:39 | XMS_ITS | Encounter Summary ---
:1955 Author Organization [facility] Address [address] [place] [address] Care Team Providers Name Role Phone Alisha Kimball MD Primary Care Provider Reason for Visit Reason Comments Refill Encounter Details Date Type Department Care Team Description 06/16/2018 Telephone [facility] maxi Alisha Kimball MD Refill [address] [facility]. [address] [place] [address] [place], [place] [phone] (Wo rk) Social History Tobacco Use Types Packs/Day Years Used Date Smoking Tobacco: Never Smokeless Tobacco: Never Alcohol Use Standard Drinks/Week Comments No 0 (1 standard drink = 0.6 oz pure alcoho l) Sex Assigned at Date Recorded Not on file documented as of this encounter Nursing Notes Alisha Kimball MD - 06/16/2018 4:44 PM CST Done. Alisha Kimball MD TECHNICIAN Tara Ricketts - 06/16/2018 4:05 PM CST Eliquis 5 mg.Patient states PCP is supposed to order from now on and not the truss driver helper. Resent the Refill request to Dr. Kimball. TECHNICIAN Francesca Cho CMA - 06/16/2018 3:28 PM CST CA: What prescription is patient requesting a refill on? TECHNICIAN Francesca Cho CMA - 06/16/2018 3:27 PM CST ----- Message from Rocio Garcia sent at 06/16/2018 3:14 PM TRIM TECHNICIAN ----- Contact: Melia Patient is calling about their refill request, please complete as soon as possible. Thanks, Rocio Garcia TECHNICIAN Rocio Garcia - 06/16/2018 3:13 PM CST Patient called to check status of this refill request. Leaving [facility] on Wednesday06/20/18 TECHNICIAN documented in this encounter Plan of Treatment Not on filedocumented as of this encounter Visit Diagnoses Not on filedocumented in this encounter Care Teams Green Chain Marker Relationship Specialty Start Date End Date Alisha Kimball MD PCP - General 07/08/05 [address] [place] [address] documented as of this encounter
--- OUTSIDE RECORDS SUMMARY | 2022-06-12 09:39 | XMS_ITS | Encounter Summary ---
:1955 Author Organization [facility] Address [address] [place] [address] Care Team Providers Name Role Phone Alisha Kimball MD Primary Care Provider Reason for Visit Reason Comments ROUTINE HEALTH MAINTENANCE Smartset/Labs and urine wer e done last week. Encounter Details Date Type Department Care Team Description 12/07/2017 Office Visit [facility] Alisha Kimball, German r for routine adult health examination without abnormal findings (Primary Dx); Practice MD Type 2 diabetes mellitus without complic ation, without long-term current use of insulin (HRC); [address] [place]; [place] [address] [address] Paroxysmal atrial fibrillation ([facility]); [phone] [place], [place] Screening for H IV (human immunodeficiency virus); [address] Encounter for screening mammogram for ma lignant [...] help, I will have you see a Director Of Reimbursement. Well Visit, Women 50 to 65: Care [...] can you learn more? 1. Go to PEX Card/Manifact or [facility]Gage [facility]/Greendizer. 2. Enter Y074 in the search box. Current as of: November 17, 2016 Content Version: 11.6 ?? [phone] [employer]. Dermatitis: Care Instructions Your Care Instructions [...] help for plant rashes. ?? Take an zlen-nxi-dybxshr antihistamine, such as diphenhydramine (Benadryl) or loratadine [...] can you learn more? 1. Go to PEX Card/Manifact or [facility]/Greendizer. 2. Enter F270 in the search box. Current as of: April 08, 2017 Content Version: 11.6 ?? [phone] [employer]. documented in this encounter Progress Notes Alisha [...] Diagnosis Encounter for routine adult health exami [facility] without abnormal findings - Primary [...] mammogram documented in this encounter Care Teams Agricultural Crop Farm Manager Relationship Specialty Start Date End Date Alisha Kimball MD PCP - General 07/08/05 [address] [place] [address] documented as of this encounter
--- OUTSIDE RECORDS SUMMARY | 2022-06-12 09:39 | XMS_ITS | Encounter Summary ---
:1955 Author Organization [facility] Address [address] [place] [address] Care Team Providers Name Role Phone Alisha Kimball MD Primary Care Provider Reason for Visit Reason Comments Refill ELIQUIS 5 MG tablet [Pharmac y Med Name: ELIQUIS 5 MG TABLET] Encounter Details Date Type Department Care Team Description 06/12/2018 Refill [facility] Janice Gill , Refill (ELIQUIS 5 MG Cardiology PA-C tablet [Pharmacy Med [address] [place] [address] Name: ELIQUIS 5 [place] [address] TABLET]) [phone] Social History Tobacco Use Types Packs/Day Years [...] encounter. Paula Salcido RN 06/20/2018, 4:45 PM ISSIONED DEFENCE FORCE OFFICER Lyn Payne - 06/16/2018 4:50 PM CST Pt informed. Lyn Payne 06/16/2018, 4:50 PM ISSIONED DEFENCE FORCE OFFICER Alisha Kimball MD - 06/16/2018 4:32 PM CST Done. Alisha Kimball MD ISSIONED DEFENCE FORCE OFFICER Tara Ricketts - 06/16/2018 4:07 PM CST .Patient states Dr. Kimball is supposed to order this and not the body care manager. Requesting 90 day supply and is leaving town this Wednesday for a few months. ISSIONED DEFENCE FORCE OFFICER Interface, Out Surescripts Prov Query - 06/12/2018 [...] results. Dallas Nguyen RN 11/26/2017, 12:44 PM ISSIONED DEFENCE FORCE OFFICER Interface, Out Surescripts Prov Query - 06/12/2018 [...] FOR: - COMPLETE BLOOD COUNT Powered by [email or web address], Reference: [id number], 06/12/2018 8:29:39 AM COMMISSIONED DEFENCE FORCE OFFICER, Pool: Cardiology Refill RN ([id number]) ISSIONED DEFENCE FORCE OFFICER documented in this encounter Plan of Treatment Not on filedocumented as of this encounter Visit Diagnoses Diagnosis Paroxysmal atrial fibrillation (HRC) - P rimary Atrial fibrillation documented in this encounter Care Teams Police Patrol Officer Relationship Specialty Start Date End Date Alisha Kimball MD PCP - General 07/08/05 [address] [place], [place] [address] documented as of this encounter
--- OUTSIDE RECORDS SUMMARY | 2022-06-12 09:39 | XMS_ITS | Encounter Summary ---
:1955 Author Organization [facility] Address [address] [place] [address] Care Team Providers Name Role Phone Alisha Kimball MD Primary Care Provider Reason for Visit Reason Comments MEDICATION THERAPY MANAGEMENT Encounter Details Date Type Department Care Team Description 10/25/2017 [facility] Essential hypertension [address] Zavaleta, PharmD (Primary Dx) [place], [place] [id number] Social History Tobacco Use Types Packs/Day Years [...] follow up appointments with me please call: [phone]. To leave a phone message for me please call the clinic directly. [facility] at [phone] (stay onthe line -- don't push an option) and leave a message with the floater operator. Kailey Christine, PharmMelany documented in this encounter Progress Notes Kailey Christine PharmMelany - 10/25/2017 7:30 AM CDT Subjective Loc Velasco is a 62 y.o. old female who was referred by Insurance [employer] for medication review/education. Pt reports doing well [...] with MTM Pharmacist in 6 months Updated [place] med list and reviewed medications including indications [...] in this encounter Care Teams Director Of Acquisitions Relationship Specialty Start Date End Date Alisha Kimball MD PCP - General 07/08/05 [address] [place] [address] documented as of this encounter
--- OUTSIDE RECORDS SUMMARY | 2022-06-12 09:39 | XMS_ITS | Encounter Summary ---
:1955 Author Organization [facility] Address [address] [place] [address] Care Team Providers Name Role Phone Alisha Kimball MD Primary Care Provider Reason for Visit Reason Comments MEDICATION THERAPY MANAGEMENT Encounter Details Date Type Department Care Team Description 04/25/2018 Office Visit [facility] Izaiah Lema, Type [address] [facility] [place]D [place] [address] complication, without [phone] [place], [place] long-term cur rent use [address] of insulin (HRC) [phone] (Primary Dx) (Work) Social History Tobacco Use [...] up on diabetes as part of the [facility] program. Last MTM encounter was [...] with patient 30 minutes. Izaiah Lema, AnneD, [facility], [facility] Clinical Pharmacist Medication Therapy Management Program Recipient of visit: Patient Medicare CI: no # of DTPs: 1 # of DTPs resolved: 1 documented in this encounter Plan of Treatment Not on filedocumented as of this encounter Visit Diagnoses Diagnosis Type 2 diabetes mellitus without complic ation, without long-term current use of insulin (HRC) - Primary documented in this encounter Care Teams Billposting Supervisor Relationship Specialty Start Date End Date Alisha Kimball MD PCP - General 07/08/05 [address] [place] [address] documented as of this encounter
--- OUTSIDE RECORDS SUMMARY | 2022-06-12 09:39 | XMS_ITS | Encounter Summary ---
:1955 Author Organization [employer] Address [address] [place] [address] Care Team Providers Name Role Phone Alisha Kimball MD Primary Care Provider Encounter Details Date Type Department Care Team Description 11/26/2017 Lab Visit [place] [facility] Essential hypertension (Prim levy Dx); [facility] Paroxysmal atrial fibrillati on ([facility]); [place] [address] Controlled type 2 diabetes m ellitus without complication, without long-term current use of insulin ([facility]); [phone] Type 2 diabetes mellitus with hyperosmolarity without coma, without long-term current use of insulin ([facility]) Social History Tobacco Use Types Packs/Day Years [...] C DT Performed at [facility], [address] [place] [address] ??[address] Alisha Kimball MD LAB_1 Performing Organization Address City/State/ZIP Code Phon e Number [facility] [phone] Basic Metabolic Panel (11/26/2017 7:30 AM CDT) [...] 12:05 PM CDT Performed at [facility], [address] [place] [address] ??[address] Alisha Kimball MD LAB_1 Performing Organization Address [facility] Phon e Number [facility] [phone] (ABNORMAL) Hgb A1c (11/26/2017 7:30 AM CDT) [...] 12:56 PM CDT Performed at [facility], [address] [place] [address] ??[address] Alisha Kimball MD LAB_1 Performing Organization Address [facility] Phon e Number [facility] [phone] Lipid Panel and Direct LDL(If Needed) (11/26/2017 [...] 12:05 PM CDT Performed at [facility], [address] [place] [address] ??[address] Alisha Kimball MD LAB_1 Performing Organization Address City/[facility] Phon e Number [facility] [phone] ALT (SGPT) (11/26/2017 7:30 AM CDT) P athologist Signature ALT (SGPT) 44 0 - 55 U/L [facility] Specimen Anatomical Collection Method Collection Time Receive d Time (Source) Location / / Volume Laterality 11/26/2017 7:30 AM 8 7:33 CDT AM CDT Narrative [facility] - 11/26/2017 12:06 PM CDT Performed at [facility], [address] [place] [address] ??[address] Janice Gill PA-C LAB_1 Performing Organization Address City/[facility]/ZIP [facility] Phon e Number [facility] [phone] AST (11/26/2017 7:30 AM CDT) P athologist Signature AST (SGOT) 26 10 - 40 U/L [facility] Specimen Anatomical Collection Method Collection Time Receive d Time (Source) Location / / Volume Laterality 11/26/2017 7:30 AM 8 7:33 CDT AM CDT Narrative [facility] - 11/26/2017 12:06 PM CDT Performed at [facility], [address] [place] [address] ??[address] Janice Gill PA-C LAB_1 Performing Organization Address City/State/ZIP Code Phon e Number [facility] [phone] documented in this encounter Visit Diagnoses Diagnosis [...] (HRC) documented in this encounter Care Teams Beam Dyer Recessed Vat Relationship Specialty Start Date End Date Alisha Kimball MD PCP - General 07/08/05 [address] [place] [address] documented as of this encounter
--- OUTSIDE RECORDS SUMMARY | 2022-06-12 09:40 | XMS_ITS | Encounter Summary ---
:1955 Author Organization [employer] Address [address] [place] [address] Care Team Providers Name Role Phone Alisha Kimball MD Primary Care Provider Reason for Visit Reason Comments Ear Pain right ear pain, liquid in ea r Encounter Details Date Type Department Care Team Description 05/19/2017 Office Visit [facility] Kareen Cohen, Diabete s mellitus, type 2 (HRC) (Primary Dx); Practice [facility]ON[facility] OME (otitis media with effusion), right; [address] Impacted cerumen of right ear; [place] [address] [place], [place] Encounter for immunization [phone] [id number] Social History Tobacco Use Types Packs/Day Years Used Date Smoking Tobacco: Never Smokeless Tobacco: Never Alcohol Use Standard Drinks/Week Comments No 0 (1 standard drink = 0.6 oz pure alcoho l) Sex Assigned at Date Recorded Not on file documented as of this encounter Last Filed Vital Signs Vital Sign Reading Time Taken Comments Blood Pressure 148/100 05/19/2017 2:27 PM DEVELOPMENTAL WRITING INSTRUCTOR Pulse 68 05/19/2017 2:27 PM DEVELOPMENTAL WRITING INSTRUCTOR Temperature - - Respiratory Rate - - Oxygen Saturation - - Inhaled Oxygen Concentration - - Weight 83 kg (183 lb) 05/19/2017 2:27 PM DEVELOPMENTAL WRITING INSTRUCTOR Height - - Body Mass Index 31.41 04/22/2017 3:56 PM CDT documented in this encounter Patient Instructions Patient InstructionsKareen Cohen, CHAVO, DNP - 05/19/2017 2:20 PM DEVELOPMENTAL WRITING INSTRUCTOR Images from the original note were not [...] can you learn more? 1. Go to [employer] or [employer]. 2. Enter S930 in the search box. Current as of: January 31, 2016 Content Version: 11.3 ?? [phone] [employer]. LOPMENTAL WRITING INSTRUCTOR documented in this encounter Progress Notes Norma [...] removed. Norma Lainez CMA 05/19/2017, 3:03 PM LOPMENTAL WRITING INSTRUCTOR Kareen Cohen, CHAVO, RADHA - 05/19/2017 2:20 [...] (FLONASE) 50 MCG/ACT nasal solution; Place 1 Patterson into both nostrils daily. decrease to 1 [...] that it can last several weeks. Avoid nviw-deryyjdkr-mxkewqjgpljpzkk combinations products due to blood pressure. I think the intermittent sharp ear pain might represent a trigeminal neuralgia. If this persists, she should follow up with primary and consider an MRI of the brain. She verbalizes understanding and agrees with plan of care. Kareen Cohen APRN, RADHA 05/19/2017, 4:25 PM LOPMENTAL WRITING INSTRUCTOR documented in this encounter Plan of [...] disease documented in this encounter Care Teams Lining Machine Operator Relationship Specialty Start Date End Date Alisha Kimball MD PCP - General 07/08/05 [address] [place] [address] documented as of this encounter
--- OUTSIDE RECORDS SUMMARY | 2022-06-12 09:40 | XMS_ITS | Encounter Summary ---
:1955 Author Organization [facility] Address [address] [place] [address] Care Team Providers Name Role Phone Alisha [...] on filedocumented in this encounter Care Teams Modular Set Crew Member Relationship Specialty Start Date End Date Alisha Kimball MD PCP - General 07/08/[address] [place], [place] [id number] documented as of this encounter
--- OUTSIDE RECORDS SUMMARY | 2022-06-12 09:40 | XMS_ITS | Encounter Summary ---
:1955 Author Organization [facility] Address [address] [place] [address] Care Team Providers Name Role Phone Alisha Kimball MD Primary Care Provider Reason for Visit Procedure/Equipment (Routine) - Incomplete Specialty Diagnoses / Procedures Referred By Contact Refer red To Contact Diagnoses Right ear pain Kareen Cohen, CHAVO, Procedures MR Brain W/WO IV Cont MR Brain WO IV Cont [address] [place] [address] Referral ID Status Reason Start Date Expiration Date Visits V isits Requested Authorized [id number] Incomplete 05/19/2017 08/18/2018 1 1 Encounter Details Date Type Department Care Team Description 06/07/2017 Imaging [facility] Specialty Kareen Cohen, Right ear pain Center MRI GAS DISTRIBUTION AND EMERGENCY CLERK, BEAN DUMPER [address] [place] [address] [place] [address] [phone] (Wo rk) Social History Tobacco Use Types [...] Kareen Cohen APRN, DNP 06/10/2017, 8:19 AM T OPERATIONS MANAGER documented in this encounter Plan of Treatment Not on filedocumented as of this encounter Procedures Procedure Name Priority Date/Time Associated Diagnosis Comme nts MR BRAIN W/WO IV Routine 06/07/2017 10:01 AM Right ear pain Re sults for this CONT FLEET OPERATIONS MANAGER procedure are i n the results section. documented in this encounter Results MR Brain W/WO IV Cont (06/07/2017 10:01 AM FLEET OPERATIONS MANAGER) Anatomical Region Laterality Modality Head Magnetic Resonance Specimen (Source) Anatomical Collection Method Collection Time Re ceived Time Location / / Volume Laterality 06/07/2017 10:01 AM FLEET OPERATIONS MANAGER Narrative 06/07/2017 12:58 PM FLEET OPERATIONS MANAGER SPECIALTY CTR II HEAD MRI WITHOUT AND [...] as detailed above . Kareen Cohen APRN, BEAN DUMPER RAD MRI documented in this encounter Visit Diagnoses Diagnosis Right ear pain Otalgia, unspecified documented in this encounter Administered Medications Inactive Administered Medications - up to 3 most recent administrations Medication Order MAR Action Action Date Dose Rate Site gadobutrol (GADAVIST) 1 Given 06/07/2017 10:03 AM FLEET OPERATIONS MANAGER 8 mL Right Arm MMOL/ML injection 10 mL 10 mL, Intravenous, ONCE (NON-SCHEDULED), Starting on Wed06/07/17 at 1002, Until Wed06/07/17 at 1003, For 1 dose documented in this encounter Care Teams Social Science Professor Relationship Specialty Start Date End Date Alisha Kimball MD PCP - General 07/08/05 [address] [place] [address] documented as of this encounter
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
--- OUTSIDE RECORDS SUMMARY | 2022-06-12 09:40 | XMS_ITS | Encounter Summary ---
:1955 Author Organization [employer] Address [address], [place] [address] Care Team Providers Name Role Phone Alisha Kimball MD Primary Care Provider Reason for Referral Consult/Transfer Care (Routine) - Closed Specialty Diagnoses / Procedures Referred By Contact Refer red To Contact Diagnoses Obstructive sleep apnea syndrome Jonna Roe MD [address] [place] [address] Referral ID Status Reason Start Date Expiration Date Visits Requ ested Visits Authorized [id number] Closed 08/08/2017 11/07/2018 1 1 Scheduling Instructions . ERCIAL GREEN BUILDING DESIGNER Procedure/Equipment (Routine) - Closed Specialty Diagnoses / Procedures Referred By Contact Refer red To Contact Diagnoses Obstructive sleep apnea syndrome Jonna Roe MD Procedures Positive Airway Pressure - New [address] [place] [address] Referral ID Status Reason Start Date Expiration Date Visits Requ ested Visits Authorized [id number] Closed 08/08/2017 11/07/2018 1 1 ERCIAL GREEN BUILDING DESIGNER Reason for Visit Reason Comments SLEEP,DISTURBANCE Procedure/Equipment (Routine) - Closed Specialty Diagnoses / Procedures Referred By Contact Refer red To Contact Diagnoses Sleep disturbance Alvarado Friedman MD [address] [place] [address] Referral ID Status Reason Start Date Expiration Date Visits Requ ested Visits Authorized [id number] Closed 03/30/2017 06/29/2018 1 1 Encounter Details Date Type Department Care Team Description 07/28/2017 Sleep Procedure [facility] Sleep Ob structive sleep apnea [facility] syndrome (Primary Dx) [address] [place] [address] Social History Tobacco Use Types Packs/Day Years [...] 83 kg (183 lb) 07/28/2017 10:09 PM COMMERCIAL GREEN BUILDING DESIGNER Height 162.6 cm (5' 4) 07/28/2017 10:09 PM COMMERCIAL GREEN BUILDING DESIGNER Body Mass Index 31.41 07/28/2017 10:09 PM COMMERCIAL GREEN BUILDING DESIGNER documented in this encounter Patient Instructions Patient InstructionsSaLuz Marina jefferson - 07/28/2017 7:30 PM CST [facility] 1. Your sleep study [...] your sleep procedure. No notes on file ERCIAL GREEN BUILDING DESIGNER documented in this encounter Plan of Treatment Scheduled Referrals Name Type Priority Associated Diagnoses Order S chedule SLEEP STUDY RESULTS Referral Routine Obstructive sleep clinical transformation specialist ea Ordered: 08/08/2017 (PULM) syndrome documented as of this encounter Procedures Procedure Name Priority Date/Time Associated Diagnosis Comme nts SLEEP CENTER TECH - Routine 07/28/2017 9:45 AM Obstructive sle ep Results for this SPLIT NIGHT COMMERCIAL GREEN BUILDING DESIGNER apnea syndrome procedure are in the results section. documented in this encounter Results Sleep Center Tech - Split Night (07/28/2017 9:45 AM COMMERCIAL GREEN BUILDING DESIGNER) [facility] gist Method Time Signature Embla Report Interpreted EMBLA Status [place] Specimen (Source) Anatomical Collection Method Collection Time Re ceived Time Location / / Volume Laterality 07/28/2017 9:45 AM COMMERCIAL GREEN BUILDING DESIGNER Jonna Roe MD [facility] [employer] Performing Organization Address City/State/ZIP Code Phon e Number [facility] [address] [place] [address] documented in this encounter Visit Diagnoses Diagnosis Obstructive sleep apnea syndrome - Prima ry Obstructive sleep apnea (adult) (pediatr ic) documented in this encounter Care Teams Lead Clinical Research Coordinator Relationship Specialty Start Date End Date Alisha Kimball MD PCP - General 07/08/[address] [place] [address] documented as of this encounter
--- OUTSIDE RECORDS SUMMARY | 2022-06-12 09:40 | XMS_ITS | Encounter Summary ---
:1955 Author Organization [facility] Address [address] [place] [address] Care Team Providers Name Role Phone Alisha Kimball MD Primary Care Provider Encounter Details Date Type Department Care Team Description 09/02/2017 Office Visit [facility] Janice Gill aroxysmal atrial fibrillation (HRC) (Primary Dx); Cardiology EMILY Whipple Heart palpitations; [address] [place] [address] Essential hypertension; [place] [address] TANNER (dyspnea on exertion) [phone] Social History Tobacco Use Types Packs/Day Years Used Date Smoking Tobacco: Never Smokeless Tobacco: Never Alcohol Use Standard Drinks/Week Comments No 0 (1 standard drink = 0.6 oz pure alcoho l) Sex Assigned at Date Recorded Not on file documented as of this encounter Last Filed Vital Signs Vital Sign Reading Time Taken Comments Blood Pressure 147/89 09/02/2017 7:55 AM SAFEMAKER Pulse 64 09/02/2017 7:55 AM SAFEMAKER Temperature - - Respiratory Rate 18 09/02/2017 7:21 AM SAFEMAKER Oxygen Saturation 97% 09/02/2017 7:21 AM SAFEMAKER Inhaled Oxygen Concentration - - Weight 85.3 kg (188 lb) 09/02/2017 7:21 AM SAFEMAKER Height 163.8 cm (5' 4.5) 09/02/2017 7:21 AM SAFEMAKER Body Mass Index 31.77 09/02/2017 7:21 AM SAFEMAKER documented in this encounter Patient Instructions Patient [...] You may contact us at: --[facility] scheduling number- [phone] If having symptoms of concern, please ask to speak to a nurse. The production scheduler will have a nurse call you to discuss your concerns. --After hours, contact the CareLine at [phone] or MAKER documented in this encounter Progress Notes Janice [...] time we started her on Eliquis for [id number] score of 3. Today, patient reports she [...] me. Janice Gill PA-C 09/02/2017 [facility] Over 50% of the time of this visit was spent face to face with the patient coordinating care and counseling on symptoms, testing, rate vs rhythm control for atrial fibrillation. hoop riveting machine operator helper was over 25 minutes. MAKER documented in this encounter Plan of Treatment Not on filedocumented as of this encounter Visit Diagnoses Diagnosis Paroxysmal atrial fibrillation (HRC) - P rimary Atrial fibrillation Heart palpitations Palpitations Essential hypertension (HRC) Unspecified essential hypertension TANNER (dyspnea on exertion) Other dyspnea and respiratory abnormalit y documented in this encounter Care Teams Transitions Rn Care Coordinator Relationship Specialty Start Date End Date Alisha Kimball MD PCP - General 07/08/05 [address] [place] [address] documented as of this encounter
--- OUTSIDE RECORDS SUMMARY | 2022-06-12 09:40 | XMS_ITS | Encounter Summary ---
:1955 Author Organization [facility] Address [address] [place] [address] Care Team Providers Name Role Phone Alisha Kimball MD Primary Care Provider Encounter Details Date Type Department Care Team Description 07/28/2017 Correspondence [facility] Sleep SLEEP QUESTIONNAIRE [facility] [address] [place] [address] Social History Tobacco Use Types Packs/Day [...] MD PCP - General 07/08/05 [address] [place] [id number] documented as of this encounter
--- OUTSIDE RECORDS SUMMARY | 2022-06-12 09:40 | XMS_ITS | Encounter Summary ---
:1955 Author Organization [facility] Address [address] [place] [address] Care Team Providers Name Role Phone Alisha Kimball MD Primary Care Provider Reason for Visit Reason Comments Follow-up, NOS Encounter Details Date Type Department Care Team Description [facility]/19[facility], Follow-up, NOS [address] [facility] SHEET CATCHER, [place] [address] 0[address] [facility] [phone] [place], [place] [address] (Wo rk) Social History Tobacco Use Types Packs/Day Years Used Date Smoking Tobacco: Never Smokeless Tobacco: Never Alcohol Use Standard Drinks/Week Comments No 0 (1 standard drink = 0.6 oz pure alcoho l) Sex Assigned at Date Recorded Not on file documented as of this encounter Nursing Notes Kraeen Cohen APRN, DNP - 05/19/2017 4:53 PM CST Talked with patient regarding MRI. Would recommend getting a baseline MRI for suspected trigeminal neuralgia. Patient would like to go ahead and have the imaging done. Kareen Cohen APRN, DNP 05/19/2017, 4:53 PM TIME REPORTER documented in this encounter Plan of Treatment Not on filedocumented as of this encounter Visit Diagnoses Diagnosis Right ear pain - Primary Otalgia, unspecified documented in this encounter Care Teams Aquatic Physiotherapist Relationship Specialty Start Date End Date Alisha Kimball MD PCP - General 07/08/05 [address] [place] [address] documented as of this encounter
--- OUTSIDE RECORDS SUMMARY | 2022-06-12 09:40 | XMS_ITS | Encounter Summary ---
:1955 Author Organization [facility] Address [address], [place] [address] Care Team Providers Name Role Phone Carroll Avalos MD Primary Care Provider Reason for Visit Reason Comments Refill amLODIPine (NORVASC) 5 MG ta blet [Pharmacy Med Name: AMLODIPINE BESYLATE 5MG TABS]; losartan (COZAAR) 50 MG tablet [Pharmacy Med Name: LOSARTAN POTASSIUM 50MG TABS] Encounter Details Date Type Department Care Team Description 05/11/2017 Refill [facility] Carroll Avalos MD Refill ([facility]OD[facility]ine Practice [address] (NORVASC) 5 MG tablet [address] [place] [address] [Pharmacy Med Name: [place] [address] AMLODIPINE BESYLATE 5MG [phone] TABS]; lo sartan (COZAAR) 50 MG tablet [...] 80 mm Hg on 04/23/2017 Powered by [employer], Reference: [id number], 05/11/2017 7:41:05 AM Luis Eduardo COREY: ARNOLD AMEZQUITA RN ([id number]) losartan (COZAAR) 50 MG tablet [Pharmacy Med [...] K: 4.4 mEq/L on 03/04/2017 Powered by [employer], Reference: [id number], 05/11/2017 7:41:05 AM DEFENCE FORCE SENIOR OFFICER, Pool: ARNOLD AMEZQUITA RN ([id number]) NCE FORCE SENIOR OFFICER Interface, Out SpazioDati Query - 05/11/2017 7:41 AM CST The [...] normal. Torey Marcelo MD 03/05/2017, 6:39 PM NCE FORCE SENIOR OFFICER documented in this encounter Plan of Treatment Not on filedocumented as of this encounter Visit Diagnoses Not on filedocumented in this encounter Care Teams Uke Driver Relationship Specialty Start Date End Date Carroll Avalos MD PCP - General 07/08/[address] [place] [address] documented as of this encounter
--- OUTSIDE RECORDS SUMMARY | 2022-06-12 09:40 | XMS_ITS | Encounter Summary ---
:1955 Author Organization [facility] Address [address] [place] [address] Care Team Providers Name Role Phone Alisha Kimball MD Primary Care Provider Encounter Details Date Type Department Care Team Description 06/07/2017 Correspondence [facility], MRI SAFETY SHEET [address] [facility] [place] [address] Social History Tobacco Use Types Packs/Day Years [...] on filedocumented in this encounter Care Teams Bridge Painter Helper Relationship Specialty Start Date End Date Alisha Kimball MD PCP - General 07/08/[address] [place], [place] [id number] documented as of this encounter
--- OUTSIDE RECORDS SUMMARY | 2022-06-12 09:40 | XMS_ITS | Encounter Summary ---
:1955 Author Organization [facility] Address [address] [place] [address] Care Team Providers Name Role Phone Alisha Kimball MD Primary Care Provider Reason for Referral Consult/Transfer Care (Routine) - Closed Specialty Diagnoses / Procedures Referred By Contact Refer red To Contact Diagnoses Psychophysiological insomnia Tomás Oswald MD [address] [place] [address] Referral ID Status Reason Start Date Expiration Date Visits Requ ested Visits Authorized [id number] Closed 08/30/2017 11/29/2018 1 1 Scheduling Instructions [facility] staff will be co ntacting you to schedule your CBT for Insomnia appointment. ESS CONTROL OPERATOR Consult/Transfer Care (Routine) - Closed Specialty Diagnoses / Procedures Referred By Contact Refer red To Contact Diagnoses MARYANNE (obstructive sleep apnea) Tomás Oswald MD [address] [place] [address] Referral ID Status Reason Start Date Expiration Date Visits Requ ested Visits Authorized [id number] Closed 08/30/2017 11/29/2018 1 1 Scheduling Instructions [...] a co-payment, co-insurance and/or deductible. INSURED BY [employer]: If you are in sured by [facility] and plan to use a [facility] or [facility] Partner Provider of Dental Orthoti cs, we will request prior authorization for you. You will be notified by [facility] of their decision. If approved and if you plan to use a [facility] Provider of Dental Orthotics, the dental office will contact you to schedule an appointment. If you have not been called, please call one of these clinics where this service is provided [facility] . [facility] (scheduling at [facility] and [place]) [phone]. If you choose to use a non-HP or HP Part ner provider, you will be responsible for working with your dentist and insurance company to obtain prior authorization. [facility]: You will b e responsible for working with your dentist and insurance company to obtain prior au thorization. Today you will be provided with the order for the dental orthotic. Addit ional information will be provided upon request. It may take up to 4 weeks for y our insurance company to make a determination on prior authorization. ESS CONTROL OPERATOR Reason for Visit Reason Comments New Arrival Screening #[address] Roe, neck measures 15 inches. Consult/Transfer Care (Routine) - Closed Specialty Diagnoses / Procedures Referred By Contact Refer red To Contact Diagnoses Obstructive sleep apnea syndrome Jonna Roe MD [address] [place] [address] Referral ID Status Reason Start Date Expiration Date Visits Requ ested Visits Authorized [id number] Closed 08/08/2017 11/07/2018 1 1 Encounter Details Date Type Department Care Team Description 08/30/2017 [facility] Tomás Oswald, MARYANNE (o bstructive sleep apnea) (Primary Dx); [facility] Psychophysiological insomnia Clinic 295 [facility] [address] [facility] [address] [phone] Social History Tobacco Use Types Packs/Day Years Used Date Smoking Tobacco: Never Smokeless Tobacco: Never Alcohol Use Standard Drinks/Week Comments No 0 (1 standard drink = 0.6 oz pure alcoho l) Sex Assigned at Date Recorded Not on file documented as of this encounter Last Filed Vital Signs Vital Sign Reading Time Taken Comments Blood Pressure 132/80 08/30/2017 12:43 PM PROCESS CONTROL OPERATOR Pulse 60 08/30/2017 12:43 PM PROCESS CONTROL OPERATOR Temperature 36 ??C (96.8 ??F) 08/30/2017 12:43 PM PROCESS CONTROL OPERATOR Respiratory Rate 12 08/30/2017 12:43 PM PROCESS CONTROL OPERATOR Oxygen Saturation 97% 08/30/2017 12:43 PM PROCESS CONTROL OPERATOR Inhaled Oxygen Concentration - - Weight 83.9 kg (185 lb) 08/30/2017 12:43 PM PROCESS CONTROL OPERATOR Height 162.6 cm (5' 4) 08/30/2017 12:43 PM PROCESS CONTROL OPERATOR Body Mass Index 31.76 08/30/2017 12:43 PM PROCESS CONTROL OPERATOR documented in this encounter Progress Notes Tomás Oswald MD - 08/30/2017 1:00 PM CST Outpatient Sleep Medicine Consultation 08/30/2017 Name: Loc Velasco Age: 62 y.o. Date of : 1955 Date of Consultation: 08/30/2017 Consultation is requested by: Jonna Roe MD [address] [place] [address] Primary care provider: Alisha Kimball MD Reason [...] (FLONASE) 50 MCG/ACT nasal solution Place 1 Mead into both nostrils daily. decreaseto 1 spray [...] 1998 menorrhagia ??? OTHER - PROCEDURES 1998 FRDEERICK for stress incontinence Social History: Social History [...] Tomás Oswald MD, PhD Diplomate of the [place] Board of Psychiatry and Neurology Certified in Sleep Medicine, [place] [employer] Special[employer] 08/30/2017 CC: Alisha Kimball MD ESS CONTROL OPERATOR documented in this encounter Plan of [...] sleep documented in this encounter Care Teams Wellness Manager Relationship Specialty Start Date End Date Alisha Kimball MD PCP - General 07/08/05 [address] [place] [address] documented as of this encounter
--- OUTSIDE RECORDS SUMMARY | 2022-06-12 09:40 | XMS_ITS | Encounter Summary ---
:1955 Author Organization [facility] Address [address] [place] [address] Care Team Providers Name Role Phone Alisha Kimball MD Primary Care Provider Reason for Visit Reason Comments RESULTS, TEST Dr. Roe requested that we contact the patient to let her know that an order was placed for APAP and a follow up. Voicemail was left for patient to return the call. Encounter Details Date Type Department Care Team Description 08/09/2017 [facility] Jonna Roe , RESULTS, TEST (Dr [facility]rop MD Roe requested that [address] [place] [address] [place] [address] to let her know that [phone] (Wo rk) an order was placed for [...] left for patient to return the call. S ORDER CLERK documented in this encounter Plan of Treatment Not on filedocumented as of this encounter Visit Diagnoses Not on filedocumented in this encounter Care Teams Machine Packaging Technician Relationship Specialty Start Date End Date Alisha Kimball MD PCP - General 07/08/05 [address] [place] [address] documented as of this encounter
--- OUTSIDE RECORDS SUMMARY | 2022-06-12 09:40 | XMS_ITS | Encounter Summary ---
:1955 Author Organization [facility] Address [address] [place] [address] Care Team Providers Name Role Phone Alisha Kimball MD Primary Care Provider Encounter Details Date Type Department Care Team Description 05/15/2017 Orders Only [facility] Tamy Friedman MD Cardiac Non-Invasive Lab [address] [facility] [address] [place] [address] [place] [address] [phone] Social History Tobacco Use Types Packs/Day Years [...] recommend discussing further treatment plans at thatvisit. NG FLUSHER Estelita Lozano RN - 05/18/2017 2:07 PM CST Pt was switched to toprol 100 mg qd. Pt has cardiology f/u 05/21/17 Vandana Lozano RN NG FLUSHER documented in this encounter Plan of Treatment Not on filedocumented as of this encounter Procedures Procedure Name Priority Date/Time Associated Diagnosis Comme nts SOCIAL INSURANCE ADVISER 05/15/2017 12:00 AM Resul ts for this CASING FLUSHER procedure are i n the results section. documented in this encounter Results SOCIAL INSURANCE ADVISER (05/15/2017 12:00 AM CASING FLUSHER) Specimen (Source) Anatomical Location Collection Method / Collectio n Time Received Time / Laterality Volume 05/15/2017 Narrative This result has an attachment that is no t available. Alvarado Friedman MD DUMMY/OTHER/AR documented in this encounter Visit Diagnoses Not on filedocumented in this encounter Care Teams Community Service Aide Relationship Specialty Start Date End Date Alisha Kimball MD PCP - General 07/08/05 [address] [place] [address] documented as of this encounter
--- OUTSIDE RECORDS SUMMARY | 2022-06-12 09:41 | XMS_ITS | Encounter Summary ---
:1955 Author Organization [facility] Address [address] [place] [address] Care Team Providers Name Role Phone Carroll Avalos MD Primary Care Provider Reason for Visit Reason Comments Refill amLODIPine (NORVASC) 5 MG ta blet [Pharmacy Med Name: AMLODIPINE 5MG TAB] Encounter Details Date Type Department Care Team Description 01/22/2017 [facility]val[facility] Refill (amLODIPine [address] [facility] [address] (NORVASC) 5 [place] [address] [place] [address] [Pharmacy Med Name: [phone] (Wo rk) AMLODIPINE 5MG TAB]) Social History [...] 79 mm Hg on 12/07/2016 Powered by [employer], Reference: [id number], 01/22/2017 3:19:00 AM CDT, Pool: ARNOLD AMEZQUITA RN ([id number]) documented in this encounter Plan of Treatment Not on filedocumented as of this encounter Visit Diagnoses Not on filedocumented in this encounter Care Teams Lens Coater Relationship Specialty Start Date End Date Carroll Avalos MD PCP - General 07/08/05 [address] [place] [address] documented as of this encounter
--- OUTSIDE RECORDS SUMMARY | 2022-06-12 09:41 | XMS_ITS | Encounter Summary ---
:1955 Author Organization [facility] Address [address] [place] [address] Care Team Providers Name Role Phone Alisha Kimball MD Primary Care Provider Encounter Details Date Type Department Care Team Description 04/22/2017 Notes/Orders [facility] Tamy Friedman MD Cardiology [address] [facility] [address] [place] [address] [place], [place] [id number] [phone] Social History Tobacco Use Types Packs/Day Years [...] on filedocumented in this encounter Care Teams Literary Writer Relationship Specialty Start Date End Date Alisha Kimball MD PCP - General 07/08/[address] [place], [place] [id number] documented as of this encounter
--- OUTSIDE RECORDS SUMMARY | 2022-06-12 09:41 | XMS_ITS | Encounter Summary ---
:1955 Author Organization [facility] Address [address] [place] [address] Care Team Providers Name Role Phone Alisha Kimball MD Primary Care Provider Encounter Details Date Type Department Care Team Description 03/25/2017 Orders Only [facility] Torey Marcelo, Cardiac Non-Invasive Lab [address] [place] [address] [place], [place] [phone] [id number] (Wo rk) Social History Tobacco Use Types [...] Name Priority Date/Time Associated Diagnosis Comme nts DIRECTOR OF ONCOLOGY 03/25/2017 12:00 AM Resul ts for this CDT procedure are i n the results section. documented in this encounter Results DIRECTOR OF ONCOLOGY (03/25/2017 12:00 AM CDT) Specimen (Source) Anatomical Location Collection Method / Collectio n Time Received Time / Laterality Volume 03/25/2017 Narrative This result has an attachment that is no t available. Torey Marcelo MD DUMMY/OTHER/AR documented in this encounter Visit Diagnoses Not on filedocumented in this encounter Care Teams Aircraft Mechanic Armament Relationship Specialty Start Date End Date Alisha Kimball MD PCP - General 07/08/[address] [place] [address] documented as of this encounter
--- OUTSIDE RECORDS SUMMARY | 2022-06-12 09:41 | XMS_ITS | Encounter Summary ---
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 [address] [address] [facility] [phone] [place], [place] [id number] Social History Tobacco Use Types Packs/Day Years [...] a couple days ago. A1C- 7.2 11/2016. TJo2xqs? Routine Eye Exam Loc Velasco is a [...] Presbyopia documented in this encounter Care Teams Behavioral Interventionist Relationship Specialty Start Date End Date Alisha Kimball MD PCP - General 07/08/[address] [place] [address] documented as of this encounter
--- OUTSIDE RECORDS SUMMARY | 2022-06-12 09:41 | XMS_ITS | Encounter Summary ---
:1955 Author Organization [facility] Address [address] [place] [address] Care Team Providers Name Role Phone Alisha Kimball MD Primary Care Provider Reason for Referral Procedure/Equipment (Routine) - Incomplete Specialty Diagnoses / Procedures Referred By Contact Refer red To Contact Diagnoses Snoring Excessive daytime sleepiness Alvarado Friedman MD [address] [place] [id number] Referral ID Status Reason Start Date Expiration Date Visits V isits Requested Authorized [id number] Incomplete 03/30/2017 06/29/2018 1 1 Scheduling Instructions [...] next 7 days, please contact us at [phone]. Procedure/Equipment (Routine) - Closed Specialty Diagnoses / Procedures Referred By Contact Refer red To Contact Diagnoses PAF (paroxysmal atrial fibrillation) (HRC) Alvarado Friedman MD [address] [place] [address] Referral ID Status Reason Start Date Expiration Date Visits Requ ested Visits Authorized [id number] Closed 03/30/2017 06/29/2018 1 1 Scheduling Instructions You will be contacted within a week by bk cárdenas regarding your monitor superintendent renting managing. This recommended service may not be cove red by your insurance coverage. We suggest you call your health insurance company a bout your coverage and benefits for this appointment. Procedure/Equipment (Routine) - Closed Specialty Diagnoses / Procedures Referred By Contact Refer red To Contact Diagnoses PAF (paroxysmal atrial fibrillation) (HRC) Alvarado Friedman MD [address] [place] [address] Referral ID Status Reason Start Date Expiration Date Visits Requ ested Visits Authorized [id number] Closed 03/30/2017 06/29/2018 1 1 Scheduling Instructions Your provider has recommended an appoint ment with [facility] Cardiology. You may call [phone] to schedule your appoi ntment. If you prefer, a nutrition associate will contact you within the next 3 business d ays to assist you in setting up this appointment. We suggest you call your [facility] insurance company about your coverage and benefits for this appointment. Reason for Visit Reason Comments CONSULT Consult/Transfer Care (Routine) - Closed Specialty Diagnoses / Procedures Referred By Contact Refer red To Contact Diagnoses Syncope, [place] [address] [place], [place] [address] Referral ID Status Reason Start Date Expiration Date Visits Requ ested Visits Authorized [id number] Closed 03/23/2017 06/22/2018 1 1 Encounter Details Date Type Department Care Team Description 03/30/2017 Office Visit [facility] Alvarado Friedman P AF (paroxysmal atrial fibrillation) ([facility]) (Primary Dx); Cardiology Pre-syncope; [address] [place] [address]. [address] [place] [address] Syncope and collapse; [place] [address] [place], [place] Snoring; [phone] Excessive daytime sleepiness Social History Tobacco Use [...] Advanced Care Provider. Thank you for choosing [facility] for your Cardiology care. You may contact us at [facility] at [phone]. After hours, you may contact the Care Line at [phone] or . Learning About Atrial Fibrillation What is atrial fibrillation? Atrial fibrillation (say AY-tree-rosendo wyq-qvrz-MYZ-shun) is the most common type of irregular [...] can you learn more? 1. Go to [employer]/Earshot or [employer]/onlinelibrary. 2. Enter L274 in the search box. Current as of: September 30, 2015 Content Version: 11.3 ?? [id number] [employer], [facility]. Apixaban (Eliquis) Taking an anticoagulant to prevent [...] taking apixaban and any other prescription and xltz-iwd-yqaesds medications, including herbal supplements and vitamins. In [...] to treat certain types of infection Rodrigo???s Wort(Shipman perforatum) Herbal product--used to help treat depression [...] keep this appointment, please call the [facility] at [phone]. BEFORE THE TEST: You do not need to do anything special to prepare for the test. DURING THE TEST: A cable splicer assistant will explain the test to you. An ultrasound transducer and gel will be placed on your chest and pictures will be made. Some tests require the use of a contrast solution. This is given through an intravenous needle (IV) that is placed in your hand or arm. The contrast solution helps the photographer aerial take better pictures of your heart. AFTER THE EXAM: Your test results will be sent to your physician, who will discuss the results with you. WHERE DO I GO IF MY TEST IS BEING PERFORMED AT [facility]? If this test is performed in the [facility], it is located on the second (main) floor of [facility]. guest services officer can direct you to the proper area. Adult Health Clinical Nurse Specialist locations are at the main entrance, at the south entrance and at the north entrance. HOW TO GET TO [facility]: [facility] is located at the intersection of [facility] and [facility], just a few blocks away from the [facility] and the junction of [facility] [address]. For automated directions, call . PARKING: The west parking ramp is the most convenient place to park for Heart Center appointments. The west [facility] entrance is off of [facility]. To receive a reduction in your parking fee, please ask the Heart cashier receptionist to validate your parking ticket. WHERE DO I GO IF MY TEST IS BEING PERFORMED AT THE [facility]? Call [phone] for directions. HEART MONITORING TECHNIQUES Please remember [...] scanned on a special machine while a server support technician looks for any changes in heartbeat [...] of need! They can not be applied gghcv-jem-hzmh. They must always be in place so [...] HISTORY: Non smoker FAMILY HISTORY: Dad had [place] in 60s pGFA [place] at 59 PGMa had CVA in 70s [...] afib. We discussed risks/benefits of anticoagulation using [employer] anticoagulation camille We will likely start apixaban [...] contact me. Alvarado Friedman MD Cardiology Pager [phone] documented in this encounter Plan of Treatment [...] sleepiness documented in this encounter Care Teams Installer Interior Assemblies Relationship Specialty Start Date End Date Alisha Kimball MD PCP - General 07/08/05 [address] [place] [address] documented as of this encounter
--- OUTSIDE RECORDS SUMMARY | 2022-06-12 09:41 | XMS_ITS | Encounter Summary ---
:1955 Author Organization [facility] Address [address] [address] Care Team Providers Name Role Phone Alisha Kimball MD Primary Care Provider Encounter Details Date Type Department Care Team Description 03/04/2017 Notes/Orders [facility] Torey Marcelo Syncope, unspecified syncope type; Practice MD Ian Diabetes mellitus, type 2 ([facility]) [address] [address] [phone] Social History Tobacco Use Types Packs/Day Years [...] PM C DT Performed at [facility], [address] [place] [id number] Torey Marcelo MD LAB_1 Performing Organization Address City/State/ZIP Code Phon e Number [facility] [phone] Basic Metabolic Panel (03/04/2017 9:26 AM CDT) [...] 03/04/2017 3:55 PM C DT Performed at [address] ??[address] Torey Marcelo MD LAB_1 Performing Organization Address [facility] Phon e Number [facility] [phone] Complete Blood Count-No Diff (03/04/2017 9:26 AM [...] 03/04/2017 4:02 PM C DT Performed at [address] ??[address] Torey Marcelo MD LAB_1 Performing Organization Address City/[facility] Phon e Number [facility] [phone] documented in this encounter Visit Diagnoses Diagnosis Syncope, unspecified syncope type Diabetes mellitus, type 2 (HRC) Type II or unspecified type diabetes dinora litus without mention of complication, not stated as uncontrolled documented in this encounter Care Teams Marble Coper Relationship Specialty Start Date End Date Alisha Kimball MD PCP - General 07/08/05 [address] [place] [address] documented as of this encounter
--- OUTSIDE RECORDS SUMMARY | 2022-06-12 09:41 | XMS_ITS | Encounter Summary ---
:1955 Author Organization [facility] Address [address] [place] [address] Care Team Providers Name Role Phone Alisha Kimball MD Primary Care Provider Reason for Visit Reason Comments RESULTS, TEST Encounter Details Date Type Department Care Team Description 03/23/2017 Telephone [facility] Torey Marcelo MD RESULTS, TEST Practice [address] [facility] [address] [place] [address] [place], [place] [address] [phone] Social History Tobacco Use Types Packs/Day Years [...] was an appt on 03/19 for the district supervisor and she turned it in yesterday. [...] am going to refer you to a c d stripper for a consultation also. Torey Marcelo MD 03/23/2017, 12:52 PM documented in this encounter Plan of Treatment Not on filedocumented as of this encounter Visit Diagnoses Not on filedocumented in this encounter Care Teams Roof Tiler Relationship Specialty Start Date End Date Alisha Kimball MD PCP - General 07/08/05 [address] [place] [address] documented as of this encounter
--- OUTSIDE RECORDS SUMMARY | 2022-06-12 09:41 | XMS_ITS | Encounter Summary ---
:1955 Author Organization [facility] Address [address] [place] [address] Care Team Providers Name Role Phone Carroll Avalos MD Primary Care Provider Reason for Visit Reason Comments Refill atorvastatin (LIPITOR) 10 MG tablet [Pharmacy Med Name: ATORVASTATIN 10MG TABS] Encounter Details Date Type Department Care Team Description 01/22/2017 Refill [place] [facility] Carroll Avalos MD Refill (atorvastatin [address] [facility] [address] (LIPITOR) 10 [place] [address] [place] [address] [Pharmacy Med Name: [phone] (Wo rk) ATORVASTATIN 10MG TABS]) Social History [...] LDL: 82 mg/dL on 12/01/2016 Powered by [employer], Reference: [id number], 01/22/2017 3:19:00 AM CDT, Pool: ARNOLD AMEZQUITA RN ([id number]) Interface, Out [employer] Query - 01/22/2017 3:19 AM CDT The [...] Avalos MD PCP - General 07/08/05 [address] [place], [place] [address] documented as of this encounter
--- OUTSIDE RECORDS SUMMARY | 2022-06-12 09:41 | XMS_ITS | Encounter Summary ---
:1955 Author Organization [facility] Address [address] [place] [address] Care Team Providers Name Role Phone Alisha Kimball MD Primary Care Provider Reason for Visit Procedure/Equipment (Routine) - Incomplete Specialty Diagnoses / Procedures Referred By Contact Refer red To Contact Diagnoses Syncope, unspecified syncope type Torey Marcelo MD Procedures NM Card Exercise Rest/Stress Spect [address] [place], [place] [address] Referral ID Status Reason Start Date Expiration Date Visits V isits Requested Authorized [id number] Incomplete 03/04/2017 06/03/2018 6 6 Encounter Details Date Type Department Care Team Description 03/22/2017 Office Visit [facility] Torey Marcelo, Cardiac Non-Invasive Lab [address] [place] [address] [place] [address] [place], [place] [phone] (Wo rk) Social History Tobacco Use Types [...] within one week. Please follow up with [facility] if you have not received your test [...] will follow up with Dr Marcelo at [facility]. Test done with rubber mill operator present: no 20 gauge IV catheter inserted [...] on filedocumented in this encounter Care Teams Broodmare Foreman Relationship Specialty Start Date End Date Alisha Kimball MD PCP - General 07/08/05 [address] [place] [address] documented as of this encounter
--- OUTSIDE RECORDS SUMMARY | 2022-06-12 09:41 | XMS_ITS | Encounter Summary ---
:1955 Author Organization [facility] Address [address] [place] [address] Care Team Providers Name Role Phone Alisha Kimball MD Primary Care Provider Reason for Referral Procedure/Equipment (Routine) - Incomplete Specialty Diagnoses / Procedures Referred By Contact Refer red To Contact Diagnoses Elevated liver enzymes Alisha Kimball MD Procedures [facility] Complete [address] [place] [address] Referral ID Status Reason Start Date Expiration Date Visits V isits Requested Authorized [id number] Incomplete 12/09/2016 03/10/2018 1 1 Reason for Visit Reason Comments LAB RESULTS Encounter Details Date Type Department Care Team Description 12/08/2016 Telephone [facility] Alisha Kimball MD LAB RESULTS [address] [facility]. [address] [place] [address] [place] [address] (Wo rk) Social History Tobacco [...] Patient returning call. Please call back at [phone]. Ok to leave a detailed message. Treasure [...] Small left renal cyst. Alisha Kimball MD [facility] documented in this encounter Visit Diagnoses Diagnosis Elevated liver enzymes - Primary Nonspecific elevation of levels of trans aminase or lactic acid dehydrogenase (LDH) Elevated liver enzymes Nonspecific elevation of levels of trans aminase or lactic acid dehydrogenase (LDH) documented in this encounter Care Teams Hardness Inspector Relationship Specialty Start Date End Date Alisha Kimball MD PCP - General 07/08/05 [address] [place] [address] documented as of this encounter
--- OUTSIDE RECORDS SUMMARY | 2022-06-12 09:41 | XMS_ITS | Encounter Summary ---
:1955 Author Organization [facility] Address [address] [place] [address] Care Team Providers Name Role Phone Alisha Kimball MD Primary Care Provider Encounter Details Date Type Department Care Team Description 03/04/[address] [place] [address] [place], [place] [address] Social History Tobacco Use [...] on filedocumented in this encounter Care Teams Differential Tester Relationship Specialty Start Date End Date Alisha Kimball MD PCP - General 07/08/[address] [place], [place] [address] documented as of this encounter
--- OUTSIDE RECORDS SUMMARY | 2022-06-12 09:41 | XMS_ITS | Encounter Summary ---
:1955 Author Organization [facility] Address [address] [place] [address] Care Team Providers Name Role Phone Alisha Kimball MD Primary Care Provider Reason for Visit Procedure/Equipment (Routine) - Incomplete Specialty Diagnoses / Procedures Referred By Contact Refer red To Contact Diagnoses Elevated liver enzymes Alisha Kimball MD Procedures US Abd Complete [address] [place] [address] Referral ID Status Reason Start Date Expiration Date Visits V isits Requested Authorized [id number] Incomplete 12/09/2016 03/10/2018 1 1 Encounter Details Date Type Department Care Team Description 12/17/2016 Imaging [facility] Specialty Alisha Kimball, Elevated liver enzymes Center Ultrasound [address] [place] [address] [place] [address] [phone] Social History Tobacco Use Types Packs/Day Years [...] (LDH) documented in this encounter Care Teams Talent Consultant Relationship Specialty Start Date End Date Alisha Kimball MD PCP - General 07/08/05 [address] [place] [address] documented as of this encounter
--- OUTSIDE RECORDS SUMMARY | 2022-06-12 09:41 | XMS_ITS | Encounter Summary ---
:1955 Author Organization [facility] Address [address] [place] [address] Care Team Providers Name Role Phone Alisha Kimball MD Primary Care Provider Reason for Referral Procedure/Equipment (Routine) - Incomplete Specialty Diagnoses / Procedures Referred By Contact Refer red To Contact Procedures Alisha Kimball MD [facility] [address] [place] [address] Referral ID Status Reason Start Date Expiration Date Visits V isits Requested Authorized [id number] Incomplete 01/18/2017 04/19/2018 1 1 Reason for Visit Procedure/Equipment (Routine) - Incomplete Specialty Diagnoses / Procedures Referred By Contact Refer red To Contact Procedures Alisha Kimball MD [facility] [address] [place] [address] Referral ID Status Reason Start Date Expiration Date Visits V isits Requested Authorized [id number] Incomplete 01/18/2017 04/19/2018 1 1 Encounter Details Date Type Department Care Team Description 01/18/2017 Imaging [facility] ury Mammography [address] [place] [address] Social History Tobacco Use Types [...] filedocumented in this encounter Care Teams Truck Caterer Relationship Specialty Start Date End Date Alisha Kimball MD PCP - General 07/08/05 [address] [place] [address] documented as of this encounter
--- OUTSIDE RECORDS SUMMARY | 2022-06-12 09:41 | XMS_ITS | Encounter Summary ---
:1955 Author Organization [facility] Address [address] [place] [address] Care Team Providers Name Role Phone Alisha Kimball MD Primary Care Provider Reason for Visit Reason Comments ERRONEOUS ENTRY Encounter Details Date Type Department Care Team Description 03/05/2017 Telephone [facility] Torey Marcelo ERRONEOUS ENTRY [address] [place], [place] [address] Social History Tobacco Use [...] filedocumented in this encounter Care Teams Commercial Technician Relationship Specialty Start Date End Date Alisha Kimball MD PCP - General 07/08/[address] [place], [place] [address] documented as of this encounter
--- OUTSIDE RECORDS SUMMARY | 2022-06-12 09:41 | XMS_ITS | Encounter Summary ---
:1955 Author Organization [facility] Address [address] [place] [address] Care Team Providers Name Role Phone Alisha Kimball MD Primary Care Provider Reason for Visit Reason Onset Date Comments ERRONEOUS ENTRY 01/22/2017 sheba pérez Encounter Details Date Type Department Care Team Description 01/22/2017 Refill [facility] Alisha Kimball MD ERRONEOUS ENTRY Practice [address] (sheba pérez) [address] [place] [address] [place] [address] [phone] Social History Tobacco Use Types Packs/Day Years [...] on filedocumented in this encounter Care Teams Soa Integration Architect Relationship Specialty Start Date End Date Alisha Kimball MD PCP - General 07/08/[address] [place], [place] [id number] documented as of this encounter
--- OUTSIDE RECORDS SUMMARY | 2022-06-12 09:41 | XMS_ITS | Encounter Summary ---
:1955 Author Organization [facility] Address [address] [place] [address] Care Team Providers Name Role Phone Alisha Kimball MD Primary Care Provider Reason for Visit Reason Comments Future Appointments Encounter Details Date Type Department Care Team Description 01/28/2017 Telephone [facility] Tesha Maxwell, Future Appointments [address] [facility] [place] [address] [facility] [phone] [place], [place] [address] (Wo rk) Social History [...] on filedocumented in this encounter Care Teams Flaker Tender Relationship Specialty Start Date End Date Alisha Kimball MD PCP - General 07/08/05 [address] [facility] [place], [place] [address] documented as of this encounter
--- OUTSIDE RECORDS SUMMARY | 2022-06-12 09:41 | XMS_ITS | Encounter Summary ---
:1955 Author Organization [facility] Address [address] [place] [address] Care Team Providers Name Role Phone Alisha Kimball MD Primary Care Provider Reason for Visit Procedure/Equipment (Routine) - Incomplete Specialty Diagnoses / Procedures Referred By Contact Refer red To Contact Diagnoses Left foot pain Izaiah Rouse, DPM Procedures XR Foot Lt AP/Lat/MO/LO 4Vws [address] [place] [address] Referral ID Status Reason Start Date Expiration Date Visits V isits Requested Authorized [id number] Incomplete 01/22/2017 04/23/2018 1 1 Encounter Details Date Type Department Care Team Description 01/22/2017 [facility] Special[facility] Garry Rouse R, Left foot pain Center [address] Radiology DPM [address] [place] [address] [place] [address] [phone] (Wo rk) Social History Tobacco Use Types [...] limb documented in this encounter Care Teams Back Shoe Operator Relationship Specialty Start Date End Date Alisha Kimball MD PCP - General 07/08/05 [address] [place] [address] documented as of this encounter
--- OUTSIDE RECORDS SUMMARY | 2022-06-12 09:41 | XMS_ITS | Encounter Summary ---
:1955 Author Organization [facility] Address [address] [place] [address] Care Team Providers Name Role Phone Alisha Kimball MD Primary Care Provider Reason for Visit Procedure/Equipment (Routine) - Incomplete Specialty Diagnoses / Procedures Referred By Contact Refer red To Contact Diagnoses Syncope, unspecified syncope type Torey Marcelo MD Procedures NM Card Exercise Rest/Stress Spect [address] [place], [place] [address] Referral ID Status Reason Start Date Expiration Date Visits V isits Requested Authorized [id number] Incomplete 03/04/2017 06/03/2018 6 6 Encounter Details Date Type Department Care Team Description 03/22/2017 Imaging [facility] Torey Marcelo, Syncope, unspecified [address] [place] [address] [facility] [phone] [place] [address] (Wo rk) Social History Tobacco [...] am going to refer you to a employment programs analyst for a consultation also. Torey Marcelo MD [...] type documented in this encounter Care Teams Commercial Loan Collection Officer Relationship Specialty Start Date End Date Alisha Kimball MD PCP - General 07/08/05 [address] [place] [address] documented as of this encounter
--- OUTSIDE RECORDS SUMMARY | 2022-06-12 09:41 | XMS_ITS | Encounter Summary ---
:1955 Author Organization [facility] Address [address] [place] [address] Care Team Providers Name Role Phone Alisha Kimball MD Primary Care Provider Reason for Referral Procedure/Equipment (Routine) - Closed Specialty Diagnoses / Procedures Referred By Contact Refer red To Contact Diagnoses Sleep disturbance Alvarado Friedman MD [address] [place] [address] Referral ID Status Reason Start Date Expiration Date Visits Requ ested Visits Authorized [id number] Closed 03/30/2017 06/29/2018 1 1 Scheduling Instructions [...] company at a location near the sleep [facility]. At the time you receive [...] Type Department Care Team Description 03/30/2017 Notes/Orders [facility] Alvarado Friedman S [facility] disturbance Cardiology (Primary Dx) [address] [facility] [address] [place] [address] [place], [place] [phone] [address] Social History Tobacco Use Types Packs/Day Years [...] unspecified documented in this encounter Care Teams Glassware Verifier Relationship Specialty Start Date End Date Alisha Kimball MD PCP - General 07/08/05 [address] [place] [address] documented as of this encounter
--- OUTSIDE RECORDS SUMMARY | 2022-06-12 09:41 | XMS_ITS | Encounter Summary ---
:1955 Author Organization [facility] Address [address] [place] [address] Care Team Providers Name Role Phone Alisha Kimball MD Primary Care Provider Reason for Visit Reason Comments Follow Up Test Results Event monitor Encounter Details Date Type Department Care Team Description 04/16/2017 Telephone [facility] Alvarado Friedman F ollow Up Test Cardiology MD Results (Event [address] [facility] monitor) [place] [address] [place], [place] [phone] [address] Social History Tobacco Use Types Packs/Day Years Used Date Smoking Tobacco: Never Smokeless Tobacco: Never Alcohol Use Standard Drinks/Week Comments No 0 (1 standard drink = 0.6 oz pure alcoho l) Sex Assigned at Date Recorded Not on file documented as of this encounter Nursing Notes Alisha Mayfield, RN - 04/16/2017 4:54 PM CDT Received fax from [employer], Dr. Friedman reviewed and found Atrial Fib. [...] fibrillation documented in this encounter Care Teams Field Installer Relationship Specialty Start Date End Date Alisha Kimball MD PCP - General 07/08/05 [address] [place] [address] documented as of this encounter
--- OUTSIDE RECORDS SUMMARY | 2022-06-12 09:41 | XMS_ITS | Encounter Summary ---
:1955 [facility] Address [address] [place] [address] Care Team Providers Name Role Phone Alisha Kimball MD Primary Care Provider Reason for Referral Procedure/Equipment (Routine) - Incomplete Specialty Diagnoses / Procedures Referred By Contact Refer red To Contact Diagnoses Syncope, unspecified syncope type Torey Norton MD Procedures NM Card Exercise Rest/Stress Spect [address] [place] [id number] Referral ID Status Reason Start Date Expiration Date Visits V isits Requested Authorized [id number] Incomplete 03/04/2017 06/03/2018 6 6 Procedure/Equipment (Routine) - Closed Specialty Diagnoses / Procedures Referred By Contact Refer red To Contact Diagnoses Syncope, [place] [address] [place], [place] [address] Referral ID Status Reason Start Date Expiration Date Visits Requ ested Visits Authorized [id number] Closed 03/04/2017 06/03/2018 1 1 Scheduling Instructions You will be contacted within a week by bk cárdenas regarding your monitor blind hooker. This recommended service may not be cove red by your insurance coverage. We suggest you call your health insurance company a bout your coverage and benefits for this appointment. Reason for Visit Reason Comments LIGHTHEADEDNESS Encounter Details Date Type Department Care Team Description 03/04/2017 Office Visit [facility] Torey Norton Syncope, unspecified syncope type (Primary Dx); Rakesh Sosa MD Diabetes mellitus, type 2 ([facility]) [address] [facility] [address] [place] [address] [phone] Social History Tobacco Use Types Packs/Day Years [...] (primary encounter diagnosis) Plan: ECG 12-LEAD ROUTINE [[id number]], Complete Blood Count-No Diff, Basic Metabolic Panel, [...] Norton MD RAD NM ECG 12-LEAD ROUTINE [[id number]] (03/04/2017 9:40 AM CDT) P athologist Signature Ventricular Rate 75 BPM [facility] Atrial Rate 75 BPM [facility] P-R Interval 150 ms [facility] QRS Duration 86 ms [facility] QT 394 ms M[facility] QTc 439 ms M[facility] P [place] 55 degrees MUSE [facility] R [place] 37 degrees MUSE [facility] T [place] 39 degrees MUSE [facility] Specimen (Source) Anatomical Collection Method Collection Time Re ceived Time Location / / Volume Laterality 03/04/2017 9:40 AM CDT Narrative [facility] - 03/12/2017 11:27 AM CDT Sinus rhythm with Premature atrial complexes Otherwise normal ECG No previous ECGs available Confirmed by MD NORTON MARVIN G ([id number]), KIARA Nunez ([id number]) on 03/12/2017 11:27:44 AM Procedure Note Torey Norton MD - 03/12/2017Form atting of this note might be different from the original. Sinus rhythm with Premature atrial compl exes Otherwise normal ECG No previous ECGs available Confirmed by MD NORTON MARVIN G ([id number]), KIARA Nunez ([id number]) on 03/12/2017 11:27:44 AM Torey Norton MD [...] 03/04/2017 3:36 PM C DT Performed at [facility], [address] [place] [id number] Torey Norton MD LAB_1 Performing Organization Address City/State/ZIP Code Phon e Number [facility] [phone] Basic Metabolic Panel (03/04/2017 9:26 AM CDT) [...] 03/04/2017 3:55 PM C DT Performed at [facility], [address] [place] [phone] Torey Norton MD LAB_1 Performing Organization Address City/State/ZIP Code Phon e Number [facility] [phone] Complete Blood Count-No Diff (03/04/2017 9:26 AM [...] 03/04/2017 4:02 PM C DT Performed at [facility], [address] [place] [id number] Torey Norton MD LAB_1 Performing Organization Address City/State/ZIP Code Phon e Number [facility] [phone] documented in this encounter Visit Diagnoses Diagnosis [...] documented in this encounter Care Teams Chief Station Engineer Relationship Specialty Start Date End Date Alisha Kimball MD PCP - General 07/08/05 [address] [place] [address] documented as of this encounter
--- OUTSIDE RECORDS SUMMARY | 2022-06-12 09:41 | XMS_ITS | Encounter Summary ---
:1955 Author Organization [facility] Address [address] [place] [address] Care Team Providers Name Role Phone Alisha Kimball MD Primary Care Provider Reason for Referral Consult/Transfer Care (Routine) - Closed Specialty Diagnoses / Procedures Referred By Contact Refer red To Contact Diagnoses Syncope, unspecified [place] [address] [place], [place] [address] Referral ID Status Reason Start Date Expiration Date Visits Requ ested Visits Authorized [id number] Closed 03/23/2017 06/22/2018 1 1 Scheduling Instructions Your provider has recommended an appoint ment with [facility]. You may call [phone] to schedule your appoi ntment. If you prefer, a chief substation operator will contact you within the next 3 business d ays to assist you in setting up this appointment. We suggest you call your [facility] company about your coverage and benefits for this appointment. Encounter Details Date Type Department Care Team Description 03/23/2017 Notes/Orders [facility] Torey Marcelo Syncope, unspecified Practice MD Ian syncope type (Primary [address] [place]) [place] [address] [phone] Social History Tobacco Use Types Packs/Day Years [...] levy documented in this encounter Care Teams Supervisor Grower Relationship Specialty Start Date End Date Alisha Kmiball MD PCP - General 07/08/05 [address] [place] [address] documented as of this encounter
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
--- OUTSIDE RECORDS SUMMARY | 2022-06-12 09:41 | XMS_ITS | Encounter Summary ---
:1955 Author Organization [facility] Address [address] [place] [address] Care Team Providers Name Role Phone Alisha Kimball MD Primary Care Provider Reason for Visit Procedure/Equipment (Routine) - Closed Specialty Diagnoses / Procedures Referred By Contact Refer red To Contact Diagnoses PAF (paroxysmal atrial fibrillation) (HRC) Alvarado Friedman MD [address] [place] [address] Referral ID Status Reason Start Date Expiration Date Visits Requ ested Visits Authorized [id number] Closed 03/30/2017 06/29/2018 1 1 Encounter Details Date Type Department Care Team Description 04/22/2017 Office Visit [facility] atrial Cardiac Non-Invasive Lab fibrillation (HRC) [address] [facility] (Primary Dx) [place], [place] [id number] Social History Tobacco Use Types Packs/Day Years [...] AM CDT Alvarado Friedman MD [facility] LADLE TENDER/RH Performing Organization Address City/State/ZIP Code Phon e Number [facility] [address] [place] [address] CARDIAC ROUTINE ECHOCARDIOGRAM (04/22/2017 10:16 AM CDT) [...] Phon e Number [facility] [address] [place] [address] documented in this encounter Visit Diagnoses Diagnosis Paroxysmal atrial fibrillation (HRC) - P rimary Atrial fibrillation documented in this encounter Care Teams Tail Board Worker Relationship Specialty Start Date End Date Alisha Kimball MD PCP - General 07/08/05 [address] [place] [address] documented as of this encounter
--- OUTSIDE RECORDS SUMMARY | 2022-06-12 09:41 | XMS_ITS | Encounter Summary ---
:1955 Author Organization [facility] Address [address] [place] [address] Care Team Providers Name Role Phone Alisha Kimball MD Primary Care Provider Reason for Visit Reason Comments MEDICATION REVIEW AND EDUCATION Encounter Details Date Type Department Care Team Description 04/23/2017 Office Visit [facility] Kailey Christine Essential hypertension (Prim levy Dx); [address] Jensen Zavaleta PharmD Diabetes mellitus, type 2 ([facility]) [place], [place] [id number] Social History Tobacco Use Types Packs/Day Years [...] with MTM Pharmacist in 6 months/ Updated [employer] med list and reviewed medications including [...] uncontrolled documented in this encounter Care Teams Recruiting Administrator Relationship Specialty Start Date End Date Alisha Kimball MD PCP - General 07/08/05 [address] [place] [address] documented as of this encounter
--- OUTSIDE RECORDS SUMMARY | 2022-06-12 09:41 | XMS_ITS | Encounter Summary ---
:1955 Author Organization [facility] [address] [place] [address] Care Team Providers Name Role Phone Alisha Kimball MD Primary Care Provider Reason for Visit Procedure/Equipment (Routine) - Closed Specialty Diagnoses / Procedures Referred By Contact Refer red To Contact Diagnoses Syncope, [place] [address] [place], [place] [address] Referral ID Status Reason Start Date Expiration Date Visits Requ ested Visits Authorized [id number] Closed 03/04/2017 06/03/2018 1 1 Encounter Details Date Type Department Care Team Description 03/19/2017 Office Visit [facility] Cardiac Non-Invasive Lab [address] [place] [address] Social History Tobacco Use Types Packs/Day Years [...] filedocumented in this encounter Care Teams Gang Investigator Relationship Specialty Start Date End Date Alisha Kimball MD PCP - General 07/08/[address] [place], [place] [id number] documented as of this encounter
--- OUTSIDE RECORDS SUMMARY | 2022-06-12 09:41 | XMS_ITS | Encounter Summary ---
:1955 Author Organization [facility] Address [address] [place] [address] Care Team Providers Name Role Phone Alisha Kimball MD Primary Care Provider Reason for Referral Procedure/Equipment (Routine) - Incomplete Specialty Diagnoses / Procedures Referred By Contact Refer red To Contact Diagnoses Left foot pain Izaiah Rouse DPM Procedures XR Foot Lt AP/Lat/MO/LO 4Vws [address] [place] [address] Referral ID Status Reason Start Date Expiration Date Visits V isits Requested Authorized [id number] Incomplete 01/22/2017 04/23/2018 1 1 Reason for Visit Consult/Transfer Care (Routine) - Closed Specialty Diagnoses / Procedures Referred By Contact Refer red To Contact Diagnoses Alisha Hamilton MD [address] [place] [address] Referral ID Status Reason Start Date Expiration Date Visits Requ ested Visits Authorized [id number] Closed 12/07/2016 03/08/2018 1 1 Encounter Details Date Type Department Care Team Description 01/22/2017 Office Visit [facility] [place] fo ot pain (Primary Dx); [facility] Izaiah Barker DPM Hallux valgus, left; 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 [address] Social History Tobacco Use Types Packs/Day Years Used Date Smoking Tobacco: Never Smokeless Tobacco: Never Alcohol Use Standard Drinks/Week Comments No 0 (1 standard drink = 0.6 oz pure alcoho l) Sex Assigned at Date Recorded Not on file documented as of this encounter Patient Instructions Patient InstructionsDonatoDorie mccoy MA - 01/22/2017 1:00 PM CDT Thank you for choosing [facility]. If you have any questions or concerns, please contact us at [phone]. For felt metatarsal pads or foam toe separators: www.Chromatin www.Wave - Private Location App Dr. Osullivan's Abcellute catalog www.Blendspace PediFix www.DrugSupplyStore.Bugsnag Bunion (hallux abducto valgus) A bunion is [...] your condition, please visit these accredited websites: [employer] http://www.acfas.org [employer] [employer] http://www.apma.org/ BUNION What is [...] high heels ?? Pain during activities ?? Mather in between the big toe and second toe ?? Callous formation on the side or bottom of the big toe or big toe joint ?? Callous under the second toe joint (2nd MTPJ) ?? Pain in the second toe joint Diagnosis/Tests (Exam) Your foot doctor (rn radiation) will ask you questions about the symptoms you are having while examining your foot. You will also probably be asked to stand and walk barefoot to further assess your foot function. The presence of a bunion is usually obvious, but sometimes there is more going on that ariel bunion, so your rn radiation will usually take an x-ray. The rn radiation will measure angles between the bones to [...] procedures to repair bunions. 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 Small plantar calcaneal spur. Procedure Note Trvais Pollard MD - 01/22/2017For matting of this [...] limb documented in this encounter Care Teams Glass Blower Helper Relationship Specialty Start Date End Date Alisha Kimball MD PCP - General 07/08/05 [address] [place] [address] documented as of this encounter
--- OUTSIDE RECORDS SUMMARY | 2022-06-12 09:41 | XMS_ITS | Encounter Summary ---
:1955 Author Organization [email or web address] Address [address] [place] [address] Care Team Providers Name Role Phone Alisha Kimball MD Primary Care Provider Reason for Visit Reason Comments Dental Conversion [facility]DR to [place] convers ion Encounter Details Date Type Department Care Team Description 12/10/2016 Dental Conversion [facility] Conchis S, DMD [address] [place] [address] [place] [address] [place] [address] [phone] Social History Tobacco Use Types Packs/Day Years [...] . Uses Fluoridated toothpaste. Primary water source: [facility], Unfiltered. Additional Notes: b 3xdn f 1-2xd. [...] Dr Alisha Kimball. The patient's medical clinic: [facility]. Current Medication 1: Vitamin Multi. Current Medication [...] Current Medication 10 : Metformin. Current Medication Vmkvma95 : 500mg. Current Medication Uoaxftgti47 : Daily. Current Medication 11 : Generic Lipitor. Current Medication Tktneirff40 : Daily. Health History Note Interface, In [...] . Uses Fluoridated toothpaste. Primary water source: [facility], Unfiltered. Additional Notes: b 3xdn f 1-2xd. [...] Dr Alisha Kimball. The patient's medical clinic: [facility]. Current Medication 1: Vitamin Multi. Current Medication [...] . Uses Fluoridated toothpaste. Primary water source: [facility], Unfiltered. Additional Notes: b 3xdn f 1-2xd. [...] Dr Alisha Kimball. The patient's medical clinic: [facility]. Current Medication 1: Vitamin Multi. Current Medication 2: Vitamin D. Current Medication 3: Fiber Pill. Current Medication 4: Baby Aspirin. Current Medication 5 : Fish Oil Occasionally. Current Medication 6 : Chromium. 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 Her name is Melia Velasco (#[id number]). Our concern is that she continues to [...] Edr Dental Conversion - 08/19/2011 12:00 AM AVIONICS MECHANIC 08/19/2011: Address Updated: Phone number updated. sg NICS MECHANIC documented in this encounter Plan of Treatment Not on filedocumented as of this encounter Visit Diagnoses Not on filedocumented in this encounter Care Teams Tar Boiler Relationship Specialty Start Date End Date Alisha Kimball MD PCP - General 07/08/05 [address] [place] [address] documented as of this encounter
--- OUTSIDE RECORDS SUMMARY | 2022-06-12 09:42 | XMS_ITS | Encounter Summary ---
:1955 Author Organization [facility] Address [address], [place] [address] Care Team Providers Name Role Phone Alisha Kimball MD Primary Care Provider Reason for Visit Reason Comments Disease Registry diabetes Encounter Details Date Type Department Care Team Description 05/22/2016 Telephone [facility] Alisha Kimball MD Disease Registry Practice [address] (diabetes) [address] [place] [address] [place], [place] [id number] [phone] Social History Tobacco Use Types Packs/Day Years Used Date Smoking Tobacco: Never Smokeless Tobacco: Never Alcohol Use Standard Drinks/Week Comments No 0 (1 standard drink = 0.6 oz pure alcoho l) Sex Assigned at Date Recorded Not on file documented as of this encounter Nursing Notes Tara Ricketts - 05/29/2016 12:11 PM CST Patient scheduled for 06/04/16 HER MUSIC Tara Ricketts - 05/22/2016 2:25 PM CST [facility] to schedule. HER MUSIC Francesca Cho CMA - 05/22/2016 2:01 PM CST This patient was identified from the Disease Registry as being out of goal or almost out of goal forone or more of their Optimal Care Measures. Diabetes - Patient is due for Blood pressure check To help the patient achieve their health goals, we recommend the following: ?? Nurse BP Check Francesca hCo 05/22/2016, 2:01 PM HER MUSIC documented in this encounter Plan of Treatment Not on filedocumented as of this encounter Visit Diagnoses Not on filedocumented in this encounter Care Teams Process Safety Management Engineer Relationship Specialty Start Date End Date Alisha Kimball MD PCP - General 07/08/05 [address] [place] [address] documented as of this encounter
--- OUTSIDE RECORDS SUMMARY | 2022-06-12 09:42 | XMS_ITS | Encounter Summary ---
:1955 Author Organization [employer] Address [address] [place] [address] Care Team Providers Name Role Phone Alisha Kimball MD Primary Care Provider Encounter Details Date Type Department Care Team Description 06/15/2016 Lab Visit [facility] Essential hypertension [address] [place], [place] [address] Social History Tobacco Use Types Packs/Day Years Used Date Smoking Tobacco: Never Smokeless Tobacco: Never Alcohol Use Standard Drinks/Week Comments No 0 (1 standard drink = 0.6 oz pure alcoho l) Sex Assigned at Date Recorded Not on file documented as of this encounter Progress Notes Tesha Maxwell PharmD - 06/17/2016 11:02 AM FURNACE ROASTER Quick Note: Normal labs. Will discuss at clinic visit 06/18/16. Tesha Maxwell PharmD 06/17/2016, 11:02 AM ACE ROASTER documented in this encounter Plan of Treatment Not on filedocumented as of this encounter Procedures Procedure Name Priority Date/Time Associated Diagnosis Comme nts CREATININE / GFR Routine 06/15/2016 4:28 PM Essential hyperten bobbi Results for this FURNACE ROASTER procedure are i n the results section. POTASSIUM Routine 06/15/2016 4:28 PM Essential hypertension Results for this FURNACE ROASTER procedure are i n the results section. documented in this encounter Results Creatinine / GFR (06/15/2016 4:28 PM FURNACE ROASTER) Analysis Performed At Patho logist Time Signature Creatinine 0.92 0.55 - [facility] 1.02 mg/dl LAB[facility]ATORIES GFR, Estimated >60 >60 [facility] ml/min/1.7 LABORATORIES 3m2 GFR, Est., If >60 >60 [facility] Black ml/min/1.7 LABORATORIES 3m2 Specimen Anatomical Collection Method Collection Time Receive d Time (Source) Location / / Volume Laterality 06/15/2016 4:28 PM 6 4:29 FURNACE ROASTER PM FURNACE ROASTER Narrative [facility] - 06/15/2016 6:[address] Performed at [facility], [address] [place] [address] ??[id number] Alisha Kimball MD LAB_1 Performing Organization Address City/[facility] Phon e Number [facility] [phone] Potassium (06/15/2016 4:28 PM FURNACE ROASTER) P athologist Signature Potassium 4.2 3.5 - 5.1 [facility] mmol/L Specimen Anatomical Collection Method Collection Time Receive d Time (Source) Location / / Volume Laterality 06/15/2016 4:28 PM 6 4:29 FURNACE ROASTER PM FURNACE ROASTER Narrative [facility] - 06/15/2016 6:[address] Performed at [facility], [address] [place] [address] ??[id number] Alisha Kimball MD LAB_1 Performing Organization Address City/[facility] Phon e Number [facility] [phone] documented in this encounter Visit Diagnoses Diagnosis Essential hypertension (HRC) Unspecified essential hypertension documented in this encounter Care Teams Dock Boss Relationship Specialty Start Date End Date Alisha Kimball MD PCP - General 07/08/05 [address] [place] [address] documented as of this encounter
--- OUTSIDE RECORDS SUMMARY | 2022-06-12 09:42 | XMS_ITS | Encounter Summary ---
:1955 Author Organization [employer] Address [address] [place] [address] Care Team Providers Name Role Phone Alisha Kimball MD Primary Care Provider Reason for Visit Reason Comments HTN MANAGEMENT AND EDUCATION Encounter Details Date Type Department Care Team Description 05/07/2016 Office Visit [facility] Tesha Maxwell, Essential hypertension (Prim levy Dx); [address] [facility] PharmD Diabetes mellitus, type 2 (HRC) [place] [address] [address] [facility] [phone] [place], [place] [address] Social History Tobacco Use [...] have questions. Thanks, Tesha Maxwell PharmD [facility] on Wednesday & Wednesday [facility] on & Wednesday documented in this [...] by mouth daily. New RX sent to [facility]. 2) Patient to have potassium and kidney [...] scheduled for June 04 at 8:00am. Updated [employer] med list and reviewed medications including indications with patient. Total time spent with patient 15 minutes. Tesha Maxwell PharmD Clinical Pharmacist Medication Therapy Management Program documented in this encounter Plan of Treatment Not on filedocumented as of this encounter Results Creatinine / GFR (06/15/2016 4:28 PM STEWARDING SUPERVISOR) Analysis Performed At Patho logist Time Signature Creatinine 0.92 0.55 - [facility] 1.02 mg/dl LABORATORIES GFR, Estimated >60 >60 [facility] ml/min/1.7 LABORATORIES 3m2 GFR, Est., If >60 >60 [facility] Black ml/min/1.7 LABORATORIES 3m2 Specimen Anatomical Collection Method Collection Time Receive d Time (Source) Location / / Volume Laterality 06/15/2016 4:28 PM 6 4:29 STEWARDING SUPERVISOR PM STEWARDING SUPERVISOR Narrative [facility] - 06/15/2016 6:[address] Performed at [facility], [address] [place] [address] ??[id number] Alisha Kimball MD LAB_1 Performing Organization Address City/[facility] Phon e Number [facility] [phone] Potassium (06/15/2016 4:28 PM STEWARDING SUPERVISOR) P athologist Signature Potassium 4.2 3.5 - 5.1 [facility] mmol/L Specimen Anatomical Collection Method Collection Time Receive d Time (Source) Location / / Volume Laterality 06/15/2016 4:28 PM 6 4:29 STEWARDING SUPERVISOR PM STEWARDING SUPERVISOR Narrative [facility] - 06/15/2016 6:[address] Performed at [facility], [address] [place] [address] ??[id number] Alisha Kimball MD LAB_1 Performing Organization Address City/[facility] Code Phon e Number [facility] [phone] documented in this encounter Visit Diagnoses Diagnosis Essential hypertension (HRC) - Primary Unspecified essential hypertension Diabetes mellitus, type 2 (HRC) Type II or unspecified type diabetes dinora litus without mention of complication, not stated as uncontrolled Essential hypertension (HRC) Unspecified essential hypertension documented in this encounter Care Teams Zipper Machine Operator Relationship Specialty Start Date End Date Alisha Kimball MD PCP - General 07/08/05 [address] [place] [address] documented as of this encounter
--- OUTSIDE RECORDS SUMMARY | 2022-06-12 09:42 | XMS_ITS | Encounter Summary ---
:1955 Author Organization [employer] Address [address] [place] [address] Care Team Providers Name Role Phone Alisha Kimball MD Primary Care Provider Reason for Visit Reason Comments Lab Orders Needed Encounter Details Date Type Department Care Team Description 11/18/2016 Telephone [facility] maxiAlisha Weiss MD Lab Orders Needed [address] [place] [address] [place], [place] [phone] (Wo rk) Social History Tobacco Use Types [...] [place] FP HP [place] 01/11/2017 9:00 AM [facility] I [place] MI[place] HP [place] 01/18/2017 11:00 AM Eric Keller OD WD OPT [id number] 04/22/2017 8:00 AM Tesha Maxwell, PharmD SP Rx HPSP PCP: Alisha Kimball MD If Alisha Kimball MD is out of the clinic, is it okay to wait until they return? No Bertha Han, RN [Reference Services Head: Please help schedule an upcoming appointment for a lab visit.] Please route to: Care Team Pool Floresita Fuchs - 11/18/2016 10:29 AM CDT What referral/order is being requested: LABS Why is the referral/order needed: (What is the medical condition for which the referral is needed?):FOR RHM & A1C Is it okay to leave detailed message on your voicemail? YES [Reference Services Head/Appt Center: If this call is after 3 p.m., communicate to patient: If we are not able to get back to you by the end of the day and your symptoms worsen please contact the Careline at [phone] OR at .] [Reference Services Head: Please inform patient that a referral does [...] 12/01/2016 1:13 PM C DT Performed at [facility], [address] [place] [address] ??[phone] Alisha Kimball MD LAB_1 Performing Organization Address City/[facility]/ZIP Code Phon e Number [facility] [phone] (ABNORMAL) ALT (SGPT) (12/01/2016 7:14 AM CDT) P athologist Signature ALT (SGPT) 87 (H) 0 - 55 U/L [facility] Specimen Anatomical Collection Method Collection Time Receive d Time (Source) Location / / Volume Laterality 12/01/2016 7:14 AM 7 7:16 CDT AM CDT Narrative [facility] - 12/01/2016 1:01 PM C DT Performed at [address] ??[id number] Alisha Kimball MD LAB_1 Performing Organization Address City/[facility] Phon e Number [facility] [phone] Potassium (12/01/2016 7:14 AM CDT) P athologist Signature Potassium 3.9 3.5 - 5.1 [facility] mmol/L Specimen Anatomical Collection Method Collection Time Receive d Time (Source) Location / / Volume Laterality 12/01/2016 7:14 AM 7 7:16 CDT AM CDT Narrative [facility] - 12/01/2016 1:01 PM C DT Performed at [facility], [address] [place] [address] ??[id number] Alisha Kimball MD LAB_1 Performing Organization Address City/[facility] Code Phon e Number [facility] [phone] Creatinine / GFR (12/01/2016 7:14 AM CDT) [...] 12/01/2016 1:01 PM C DT Performed at [address] ??[id number] Alisha Kimball MD LAB_1 Performing Organization Address [facility] Phon e Number [facility] [phone] Lipid Panel and Direct LDL(If Needed) (12/01/2016 7:14 AM CDT) [facility] gist Method Time Signature Hours Fasting [...] 12/01/2016 1:01 PM C DT Performed at [address] ??[phone] Alisha Kimball MD LAB_1 Performing Organization Address [facility] Phon e Number [facility] [phone] (ABNORMAL) Hgb A1c (12/01/2016 7:14 AM CDT) [...] 12/01/2016 1:00 PM C DT Performed at [facility], [address] ??[id number] Alisha Kimball MD LAB_1 Performing Organization Address City/State/[facility] Code Phon e Number [facility] [phone] documented in this encounter Visit Diagnoses Diagnosis [...] disorder documented in this encounter Care Teams Burnisher And Bumper Relationship Specialty Start Date End Date Alisha Kimball MD PCP - General 07/08/05 [address] [place] [address] documented as of this encounter
--- OUTSIDE RECORDS SUMMARY | 2022-06-12 09:42 | XMS_ITS | Encounter Summary ---
:1955 Author Organization [employer] Address [address] [place] [address] Care Team Providers Name Role Phone Alisha Kimball MD Primary Care Provider Encounter Details Date Type Department Care Team Description 05/04/2016 Lab Visit [facility] Essential hypertension [address] [place], [place] [address] Social History Tobacco Use [...] 05/04/2016 7:28 PM C DT Performed at [facility], [address] [place] [address] ??[id number] Alisha Kimball MD LAB_1 Performing Organization Address City/[facility] Phon e Number [facility] [phone] Potassium (05/04/2016 3:49 PM CDT) P athologist Signature Potassium 4.2 3.5 - 5.1 [facility] mmol/L Specimen Anatomical Collection Method Collection Time Receive d Time (Source) Location / / Volume Laterality 05/04/2016 3:49 PM 6 3:50 CDT PM CDT Narrative [facility] - 05/04/2016 7:28 PM C DT Performed at [facility], [address] [place] [address] ??[phone] Alisha Kimball MD LAB_1 Performing Organization Address City/[facility] Phon e Number [facility] [phone] documented in this encounter Visit Diagnoses Diagnosis Essential hypertension (HRC) Unspecified essential hypertension documented in this encounter Care Teams Supervisor Agricultural Education Relationship Specialty Start Date End Date Alisha Kimball MD PCP - General 07/08/05 [address] [place] [address] documented as of this encounter
--- OUTSIDE RECORDS SUMMARY | 2022-06-12 09:42 | XMS_ITS | Encounter Summary ---
:1955 Author Organization [facility] Address [address] [place] [address] Care Team Providers Name Role Phone Alisha Kimball MD Primary Care Provider Reason for Referral Consult/Transfer Care (Routine) - Closed Specialty Diagnoses / Procedures Referred By Contact Refer red To Contact Diagnoses Alisha Hamilton MD [address] [place] [address] Referral ID Status Reason Start Date Expiration Date Visits Requ ested Visits Authorized [id number] Closed 12/07/2016 03/08/2018 1 1 Scheduling Instructions If an appointment with [facility] was advised and you have not been contacted to schedule that appo intment within 3 business days, please call [phone] for assistance. We suggest you call your [...] [address] Elevated liver enzymes; [place] [address] [place] [address] Need for hepatitis C screening test; [phone] Cb (Work) Social History Tobacco Use Types [...] this encounter Patient Instructions Patient InstructionsFrancesca Cho, TEST ENGINE OPERATOR - 12/07/2016 8:15 AM CDT Images from [...] can you learn more? 1. Go to [employer] or [employer]. 2. Enter Y074 in the search box. Current as of: January 21, 2016 Content Version: 11.2 ?? [phone] [employer], [employer]. Nonalcoholic Steatohepatitis (SMITH): Care Instructions Your Care [...] can you learn more? 1. Go to [employer] or [employer]. 2. Enter F761 in the search box. Current as of: February 11, 2016 Content Version: 11.2 ?? [phone] [facility], [employer]. documented in this encounter Progress Notes Alisha [...] HEP C recommended for patients born between 5468-1003 Liver Panel(Hepatic Function Panel) Hepatitis B Surface Antibody HBsAg (Hepatitis B Surface Antigen) ESR SELAM Screen Ceruoplasmin Ferritin Hepatitis A Antibody, IgG 4. Need for hepatitis C screening test Z11.59 HEP C recommended for patients born between 7385-9336 5. Bunion M21.619 Foot & Ankle/Podiatry Consult-Adult/Peds [...] A Antibody, IgG (12/07/2016 9:21 AM CDT) [facility] Method Time Signature Hepatitis A Negative POSR [facility] Ab, IgG (Non LABORATORIES Reactive) (A) Specimen Anatomical Collection Method Collection Time Receive d Time (Source) Location / / Volume Laterality 12/07/2016 9:21 AM 7 9:22 CDT AM CDT Narrative [facility] - 12/07/2016 5:10 PM C DT Performed at [facility], [address] [place] [address] ??[id number] Alisha Kimball MD LAB_1 Performing Organization Address City/[facility] Phon e Number [facility] [phone] Ferritin (12/07/2016 9:21 AM CDT) athologist Signature Ferritin 114 9 - 204 [facility] ng/ml Specimen Anatomical Collection Method Collection Time Receive d Time (Source) Location / / Volume Laterality 12/07/2016 9:21 AM 7 9:22 CDT AM CDT Narrative [facility] - 12/07/2016 1:54 PM C DT Performed at [facility], [address] [place] [address] ??[phone] Alisha Kimball MD LAB_1 Performing Organization Address City/[facility] Phon e Number [facility] [phone] Ceruoplasmin (12/07/2016 9:21 AM CDT) Component Value Ref Test Analysis Performed At [facility] gist Range Method Time Signature Ceruloplasmin 21 [facility] Reference range: 17 to 54 [facility] Unit: mg/dL Ceruloplasmin (NOTE) [facility] REFERENCE INTERVAL: Ceruloplasmin LABORATORIES Access complete set of age- and/or gender-specific reference ?? intervals for this test in the [employer] y ?? (Reissued). [facility] [place] [address] www.Reissued, Sadi Alba MD, Lab. Director Specimen Anatomical Collection Method Collection Time Receive d Time (Source) Location / / Volume Laterality 12/07/2016 9:21 AM 7 9:22 CDT AM CDT Narrative [facility] - 12/08/2016 1:54 PM C DT Performed by [facility], [address] [place] [address] bhavana [place], [place] [address] Alisha Kimball MD LAB_1 Performing Organization Address City/[facility] Phon e Number [facility] [phone] SELAM Screen (12/07/2016 9:21 AM CDT) athologist Signature SELAM Screen Negative NEG [facility] Specimen Anatomical Collection Method Collection Time Receive d Time (Source) Location / / Volume Laterality 12/07/2016 9:21 AM 7 9:22 CDT AM CDT Narrative [facility] - 12/08/2016 4:48 PM C DT Performed at [facility], [address] [place] [address] ??[id number] Alisha Kimball MD LAB_1 Performing Organization Address City/[facility] Phon e Number [facility] [phone] ESR (12/07/2016 9:21 AM CDT) athologist Signature ESR 6 0 - 20 [facility] mm/hr Specimen Anatomical Collection Method Collection Time Receive d Time (Source) Location / / Volume Laterality 12/07/2016 9:21 AM 7 9:22 CDT AM CDT Narrative [facility] - 12/07/2016 2:59 PM C DT Performed at [facility], [address] [place] [address] ??[phone] Alisha Kimball MD LAB_1 Performing Organization Address [facility] Phon e Number [facility] [phone] HBsAg (Hepatitis B Surface Antigen) (12/07/2016 9:21 AM CDT) [facility] Signature HBsAg Negative (Non NEGNR [facility] Reactive) LABORATORIES Specimen Anatomical Collection Method Collection Time Receive d Time (Source) Location / / Volume Laterality 12/07/2016 9:21 AM 7 9:22 CDT AM CDT Narrative [facility] - 12/07/2016 5:10 PM C DT Performed at [address] ??[phone] Alisha Kimball MD LAB_1 Performing Organization Address [facility] Phon e Number [facility] [phone] (ABNORMAL) Hepatitis B Surface Antibody (12/07/2016 9:21 AM CDT) [facility] Signature Hep B Surf AB <2.0 (L) [...] 12/07/2016 5:11 PM C DT Performed at [address] ??[phone] Alisha Kimball MD LAB_1 Performing Organization Address [facility] Phon e Number [facility] [phone] (ABNORMAL) Liver Panel(Hepatic Function Panel) (12/07/2016 9:21 AM CDT) [facility] Signature Alkaline 85 40 - 150 [facility] [...] 12/07/2016 1:39 PM C DT Performed at [address] ??[address] Alisha Kimball MD LAB_1 Performing Organization Address [facility] Phon e Number [facility] [phone] HEP C recommended for patients born between 0412-9937 (12/07/2016 9:21 AM CDT) [facility] gist Method Time Signature Anti-HCV Negative (Non NEGNR [facility] Reactive) LABORATORIES Comment: Antibodies to HCV not detected. Does not exclude the possibility of exposure to HCV. Specimen Anatomical Collection Method Collection Time Receive d Time (Source) Location / / Volume [facility] 12/07/2016 9:21 AM 7 9:22 CDT AM CDT Narrative [facility] - 12/07/2016 2:01 PM C DT Performed at [address] ??[address] Alisha Kimball MD LAB_1 Performing Organization Address City/[facility] Phon e Number [facility] [phone] documented in this encounter Visit Diagnoses Diagnosis [...] (LDH) documented in this encounter Care Teams Material Damage Adjuster Relationship Specialty Start Date End Date Alisha Kimball MD PCP - General 07/08/05 [address] [place] [address] documented as of this encounter
--- OUTSIDE RECORDS SUMMARY | 2022-06-12 09:42 | XMS_ITS | Encounter Summary ---
:1955 Author Organization [employer] Address [address] [place] [address] Care Team Providers Name Role Phone Carroll Avalos MD Primary Care Provider Reason for Visit Reason Comments Refill Metformin Encounter Details Date Type Department Care Team Description 11/16/2016 Refill [facility] Carroll Avalos MD Refill (Metformin) [address] [facility]. [address] [place] [address] [place], [place] [id number] (Wo rk) Social History Tobacco Use Types [...] Lyn Payne 11/18/2016, 8:13 AM Interface, Out Yammer Query - 11/16/2016 6:02 PM CDT metFORMIN [...] HBA1C: 6.6 % on 03/06/2016 Powered by [employer], Reference: [id number], 11/16/2016 6:02:46 PM CDT, Pool: ARNOLD AMEZQUITA RN ([id number]) Interface, Out Yammer Query - 11/16/2016 6:02 PM CDT The [...] filedocumented in this encounter Care Teams Water Resource Manager Relationship Specialty Start Date End Date Carroll Avalos MD PCP - General 07/08/05 [address] [place] [address] documented as of this encounter
--- OUTSIDE RECORDS SUMMARY | 2022-06-12 09:42 | XMS_ITS | Encounter Summary ---
:1955 Author Organization [facility] Address [address] [place] [address] Care Team Providers Name Role Phone Alisha Kimball MD Primary Care Provider Encounter Details Date Type Department Care Team Description 12/07/2016 Lab Visit [facility] Need for hepatitis C screeni ng test; [address] [place] [address] Social History Tobacco Use Types [...] A Antibody, IgG (12/07/2016 9:21 AM CDT) [facility] Method Time Signature Hepatitis A Negative POSR [facility] Ab, IgG (Non LABORATORIES Reactive) (A) Specimen Anatomical Collection Method Collection Time Receive d Time (Source) Location / / Volume [facility] 12/07/2016 9:21 AM 7 9:22 CDT AM CDT Narrative [facility] - 12/07/2016 5:10 PM C DT Performed at [facility], [address] [place] [address] ??[id number] Alisha Kimball MD LAB_1 Performing Organization Address City/[facility] Phon e Number [facility] [phone] Ferritin (12/07/2016 9:21 AM CDT) [facility] Signature Ferritin 114 9 - 204 [facility] ng/ml Specimen Anatomical Collection Method Collection Time Receive d Time (Source) Location / / Volume [facility] 12/07/2016 9:21 AM 7 9:22 CDT AM CDT Narrative [facility] - 12/07/2016 1:54 PM C DT Performed at [facility], [address] [place] [address] ??[id number] Alisha Kimball MD LAB_1 Performing Organization Address [facility] Phon e Number [facility] [phone] Ceruoplasmin (12/07/2016 9:21 AM CDT) Component Value Ref Test Analysis Performed At [facility] Range Method Time Signature Ceruloplasmin 21 [facility] Reference range: 17 to 54 [facility] Unit: mg/dL Ceruloplasmin (NOTE) [facility] REFERENCE INTERVAL: Ceruloplasmin LABORATORIES Access complete set of age- and/or gender-specific reference ?? intervals for this test in the [facility] Clinical Psychologist Licensed y ?? ([employer] [address] [email or web address], Sadi Alba MD, Lab. Director Specimen Anatomical Collection Method Collection Time Receive d Time (Source) Location / / Volume [facility] 12/07/2016 9:21 AM 7 9:22 CDT AM CDT Narrative [facility] - 12/08/2016 1:54 PM C DT Performed by [facility], [address] [place], [place] [address] Alisha Kimball MD LAB_1 Performing Organization Address City/[facility] Code Phon e Number [facility] [phone] SELAM Screen (12/07/2016 9:21 AM CDT) athologist Signature SELAM Screen Negative NEG [facility] Specimen Anatomical Collection Method Collection Time Receive d Time (Source) Location / / Volume Later[facility] 12/07/2016 9:21 AM 7 9:22 CDT AM CDT Narrative [facility] - 12/08/2016 4:48 PM C DT Performed at [address] ??[id number] Alisha Kimball MD LAB_1 Performing Organization Address City/[facility]/ZIP Code Phon e Number [facility] [phone] ESR (12/07/2016 9:21 AM CDT) athologist Signature ESR 6 0 - 20 [facility] mm/hr Specimen Anatomical Collection Method Collection Time Receive d Time (Source) Location / / Volume Laterality 12/07/2016 9:21 AM 7 9:22 CDT AM CDT Narrative [facility] - 12/07/2016 2:59 PM C DT Performed at [facility], [address] [place] [address] ??[id number] Alisha Kimball MD LAB_1 Performing Organization Address City/[facility] Phon e Number [facility] [phone] HBsAg (Hepatitis B Surface Antigen) (12/07/2016 9:21 AM CDT) [facility] Time Signature HBsAg Negative (Non NEGNR [facility] Reactive) LABORATORIES Specimen Anatomical Collection Method Collection Time Receive d Time (Source) Location / / Volume Laterality 12/07/2016 9:21 AM 7 9:22 CDT AM CDT Narrative [facility] - 12/07/2016 5:10 PM C DT Performed at [address] ??[id number] Alisha Kimball MD LAB_1 Performing Organization Address [facility] Phon e Number [facility] [phone] (ABNORMAL) Hepatitis B Surface Antibody (12/07/2016 9:21 AM CDT) [facility] Time Signature Hep B Surf AB [...] 12/07/2016 5:11 PM C DT Performed at [facility], [address] [place] [address] ??[address] Alisha Kimball MD LAB_1 Performing Organization Address City/[facility] Phon e Number [facility] [phone] (ABNORMAL) Liver Panel(Hepatic Function Panel) (12/07/2016 9:21 AM CDT) [facility] Time Signature Alkaline 85 40 - [...] 12/07/2016 1:39 PM C DT Performed at [address] ??[address] Alisha Kimball MD LAB_1 Performing Organization Address City/[facility] Phon e Number [facility] [phone] HEP C recommended for patients born between 4508-0298 (12/07/2016 9:21 AM CDT) [facility] Method Time Signature Anti-HCV Negative (Non NEGNR [facility] Reactive) LABORATORIES Comment: Antibodies to HCV not detected. Does not exclude the possibility of exposure to HCV. Specimen Anatomical Collection Method Collection Time Receive d Time (Source) Location / / Volume Laterality 12/07/2016 9:21 AM 7 9:22 CDT AM CDT Narrative [facility] - 12/07/2016 2:01 PM C DT Performed at [address] ??[address] Alisha Kimball MD LAB_1 Performing Organization Address City/[facility] Phon e Number [facility] [phone] documented in this encounter Visit Diagnoses Diagnosis Need for hepatitis C screening test Special screening examination for other specified viral diseases Elevated liver enzymes Nonspecific elevation of levels of trans aminase or lactic acid dehydrogenase (LDH) documented in this encounter Care Teams Translator/Interpreter Relationship Specialty Start Date End Date Alisha Kimball MD PCP - General 07/08/05 [address] [place] [address] documented as of this encounter
--- OUTSIDE RECORDS SUMMARY | 2022-06-12 09:42 | XMS_ITS | Encounter Summary ---
:1955 Author Organization [facility] Address [address] [place] [address] Care Team Providers Name Role Phone Alisha Kimball MD Primary Care Provider Encounter Details Date Type Department Care Team Description 11/16/2016 Refill Order [facility] Alisha Kimball MD [address] [facility]. [address] [place] [address] [place], [place] [phone] (Wo rk) Social History Tobacco Use Types [...] Performed at [facility], [address] [place] [address] ??[address] Alisha Kimball MD LAB_1 Performing Organization Address City/State/ZIP Code Phon e Number [facility] [phone] documented in this encounter Visit Diagnoses Diagnosis [...] disorder documented in this encounter Care Teams Signaling Design Engineer Relationship Specialty Start Date End Date Alisha Kimball MD PCP - General 07/08/05 [address] [place] [address] documented as of this encounter
--- OUTSIDE RECORDS SUMMARY | 2022-06-12 09:42 | XMS_ITS | Encounter Summary ---
:1955 Author Organization [employer] Address [address], [place] [address] Care Team Providers Name Role Phone Alisha Kimball MD Primary Care Provider Reason for Visit Reason Comments MEDICATION THERAPY MANAGEMENT Encounter Details Date Type Department Care Team Description 06/18/2016 Office Visit [facility] Tesha Maxwell, Essential hypertension [address] [facility] PharmD (Primary Dx) [place] [address] [address] [facility] [phone] [place], [place] [address] Social History Tobacco Use Types Packs/Day Years Used Date Smoking Tobacco: Never Smokeless Tobacco: Never Alcohol Use Standard Drinks/Week Comments No 0 (1 standard drink = 0.6 oz pure alcoho l) Sex Assigned at Date Recorded Not on file documented as of this encounter Last Filed Vital Signs Vital Sign Reading Time Taken Comments Blood Pressure 123/86 06/18/2016 7:39 AM MORTARMAN Pulse 81 06/18/2016 7:39 AM MORTARMAN Temperature - - Respiratory Rate - - Oxygen Saturation - - Inhaled Oxygen Concentration - - Weight - - Height - - Body Mass Index - - documented in this encounter Patient Instructions Patient InstructionsPeltTesha smith PharmD - 06/18/2016 7:34 AM CST 1) Your blood pressure is in goal range today. Continue on amlodipine 5mg daily, [id number] daily and losartan 50mg daily. 2) Your follow-up visit is scheduled for , September 24 at 8:00am. Please call me or e-mail if you have questions. Thanks, Tesha Maxwell PharmD [facility] on Wednesday & Wednesday [employer] on & Wednesday [place] documented in this encounter Progress Notes Tesha [...] scheduled for September 24 at 8:00am. Updated Coffee and Power list and reviewed medications including indications with patient. Total time spent with patient 15 minutes. Tesha Maxwell PharmD Clinical Pharmacist Medication Therapy Management Program [place] documented in this encounter Plan of Treatment Not on filedocumented as of this encounter Visit Diagnoses Diagnosis Essential hypertension (HRC) - Primary Unspecified essential hypertension documented in this encounter Care Teams Metal Cut Off Saw Tender Relationship Specialty Start Date End Date Alisha Kimball MD PCP - General 07/08/[address] [place] [address] documented as of this encounter
--- OUTSIDE RECORDS SUMMARY | 2022-06-12 09:42 | XMS_ITS | Encounter Summary ---
:1955 Author Organization [employer] Address [address] [place] [address] Care Team Providers Name Role Phone Alisha Kimball MD Primary Care Provider Reason for Visit Reason Comments HTN MANAGEMENT AND EDUCATION Encounter Details Date Type Department Care Team Description 06/04/2016 Office Visit [facility] Hans, Tesha, Essential hypertension (Prim levy Dx); [address] [facility] PharmD Diabetes mellitus, type 2 (HRC); [place], [place] [address] Hypercholeste rolemia (HRC) [address] [facility] [phone] [place] [address] Social History Tobacco Use Types Packs/Day Years Used Date Smoking Tobacco: Never Smokeless Tobacco: Never Alcohol Use Standard Drinks/Week Comments No 0 (1 standard drink = 0.6 oz pure alcoho l) Sex Assigned at Date Recorded Not on file documented as of this encounter Last Filed Vital Signs Vital Sign Reading Time Taken Comments Blood Pressure 122/95 06/04/2016 7:49 AM MANAGER INTENSIVE CARE Pulse 86 06/04/2016 7:49 AM MANAGER INTENSIVE CARE Temperature - - Respiratory Rate - - [...] if you have questions. Thanks, Gamal Jasmine GER INTENSIVE CARE documented in this encounter Progress Notes Kenroy [...] for June 18 at 8:00 am. Updated [employer] med list and reviewed medications including indications with patient. Total time spent with patient 30 minutes. Monica Jasmine, AnneD IV Student Appointment conducted by student. Case discussed with student and I agree with student's plan/note. Tesha Maxwell PharmD 06/04/2016, 8:46 AM GER INTENSIVE CARE documented in this encounter Plan of Treatment Not on filedocumented as of this encounter Visit Diagnoses Diagnosis Essential hypertension (HRC) - Primary Unspecified essential hypertension Diabetes mellitus, type 2 (HRC) Type II or unspecified type diabetes dinora litus without mention of complication, not stated as uncontrolled Hypercholesterolemia Pure hypercholesterolemia documented in this encounter Care Teams Combine Mechanic Relationship Specialty Start Date End Date Alisha Kimball MD PCP - General 07/08/05 [address] [place] [address] documented as of this encounter
--- OUTSIDE RECORDS SUMMARY | 2022-06-12 09:42 | XMS_ITS | Encounter Summary ---
:1955 Author Organization [employer] Address [address], [place] [address] Care Team Providers Name Role Phone Alisha Kimball MD Primary Care Provider Reason for Visit Reason Comments HTN MANAGEMENT AND EDUCATION Encounter Details Date Type Department Care Team Description 04/09/2016 Office Visit [facility] Tesha Maxwell, Essential hypertension [address] [facility] PharmD (Primary Dx) [place] [address] [address] [facility] [phone] [place], [place] [address] Social History Tobacco Use [...] , November 3rd at 8:00am at the [facility]. Please call me or e-mail if you have questions. Thanks, Tesha Maxwell PharmD [facility] on Wednesday & Wednesday [facility] on & Wednesday documented in this encounter [...] scheduled for May 07 at 8:00am. Updated Nu[employer] list and reviewed medications including indications with [...] 05/04/2016 7:28 PM C DT Performed at [facility], [address] [place] [address] ??[id number] Alisha Kimball MD LAB_1 Performing Organization Address [facility] Phon e Number [facility] [phone] Potassium (05/04/2016 3:49 PM CDT) P athologist Signature Potassium 4.2 3.5 - 5.1 [facility] mmol/L Specimen Anatomical Collection Method Collection Time Receive d Time (Source) Location / / Volume Laterality 05/04/2016 3:49 PM 6 3:50 CDT PM CDT Narrative [facility] - 05/04/2016 7:28 PM C DT Performed at [facility], [address] [place] [address] ??[id number] Alisha Kimball MD LAB_1 Performing Organization Address City/[facility] Phon e Number [facility] [phone] documented in this encounter Visit Diagnoses Diagnosis Essential hypertension (HRC) - Primary Unspecified essential hypertension Essential hypertension (HRC) Unspecified essential hypertension documented in this encounter Care Teams Sound Printer Relationship Specialty Start Date End Date Alisha Kimball MD PCP - General 07/08/05 [address] [place] [address] documented as of this encounter
--- OUTSIDE RECORDS SUMMARY | 2022-06-12 09:42 | XMS_ITS | Encounter Summary ---
:1955 Author Organization [employer] Address [address] [place] [address] Care Team Providers Name Role Phone Alisha Kimball MD Primary Care Provider Encounter Details Date Type Department Care Team Description 12/01/2016 Lab Visit [facility] Encounter for long-term (cur rent) use of medications; [address] [facility] Diabetes mellitus, type 2 (H RC); [place] [address] Hypercholesterolemia; [phone] Essential hyper tension; Screening for t hyroid [...] 12/01/2016 1:13 PM C DT Performed at [address] ??[address] Alisha Kimball MD LAB_1 Performing Organization Address [facility] Phon e Number [facility] [phone] (ABNORMAL) ALT (SGPT) (12/01/2016 7:14 AM CDT) athologist Signature ALT (SGPT) 87 (H) 0 - 55 U/L [facility] Specimen Anatomical Collection Method Collection Time Receive d Time (Source) Location / / Volume Laterality 12/01/2016 7:14 AM 7 7:16 CDT AM CDT Narrative [facility] - 12/01/2016 1:01 PM C DT Performed at [address] ??[address] Alisha Kimball MD LAB_1 Performing Organization Address City/State/ZIP Code Phon e Number [facility] [phone] Potassium (12/01/2016 7:14 AM CDT) P athologist Signature Potassium 3.9 3.5 - 5.1 [facility] mmol/L Specimen Anatomical Collection Method Collection Time Receive d Time (Source) Location / / Volume Laterality 12/01/2016 7:14 AM 7 7:16 CDT AM CDT Narrative [facility] - 12/01/2016 1:01 PM C DT Performed at [facility], [address] [place] [address] ??[address] Alisha Kimball MD LAB_1 Performing Organization Address City/[facility] Phon e Number [facility] [phone] Creatinine / GFR (12/01/2016 7:14 AM CDT) [facility] Time Signature Creatinine 0.77 [...] 1:01 PM C DT Performed at [facility], [address] [place] [address] ??[address] Alisha Kimball MD LAB_1 Performing Organization Address City/[facility] Phon e Number [facility] [phone] Lipid Panel and Direct LDL(If Needed) (12/01/2016 [...] 1:01 PM C DT Performed at [facility], [address] [place] [address] ??[address] Alisha Kimball MD LAB_1 Performing Organization Address City/[facility] Phon e Number [facility] [phone] (ABNORMAL) Hgb A1c (12/01/2016 7:14 AM CDT) [...] 1:00 PM C DT Performed at [facility], [address] [place] [address] ??[address] Alisha Kimball MD LAB_1 Performing Organization Address [facility] Phon e Number [facility] [phone] Sodium (12/01/2016 7:14 AM CDT) athologist Signature Sodium 140 136 - 145 [facility] mmol/L Specimen Anatomical Collection Method Collection Time Receive d Time (Source) Location / / Volume Laterality 12/01/2016 7:14 AM 7 7:16 CDT AM CDT Narrative [facility] - 12/01/2016 1:01 PM C DT Performed at [facility], [address] [place] [address] ??[address] Alisha Kimball MD LAB_1 Performing Organization Address City/State/ZIP Code Phon e Number [facility] [phone] documented in this encounter Visit Diagnoses Diagnosis Encounter for long-term (current) use of medications Encounter for long-term (current) use of other medications Diabetes mellitus, type 2 (HRC) Type II or unspecified type diabetes dinora litus without mention of complication, not stated as uncontrolled Hypercholesterolemia Pure hypercholesterolemia Essential hypertension (HRC) Unspecified essential hypertension Screening for thyroid disorder documented in this encounter Care Teams Hospice Clinical Manager Relationship Specialty Start Date End Date Alisha Kimball MD PCP - General 07/08/05 [address] [place] [address] documented as of this encounter
--- OUTSIDE RECORDS SUMMARY | 2022-06-12 09:42 | XMS_ITS | Encounter Summary ---
:1955 Author Organization [email or web address] Address [address] [place] [address] Care Team Providers Name Role Phone Alisha Kimball MD Primary Care Provider Reason for Visit Reason Comments MEDICATION THERAPY MANAGEMENT Encounter Details Date Type Department Care Team Description 10/22/2016 Office Visit [facility] Tesha Maxwell, Essential hypertension (Prim levy Dx); [address] [facility] PharmD Diabetes mellitus, type 2 (HRC); [place], [place] [address] Hypercholeste rolemia [address] [facility] [phone] [place] [address] Social History Tobacco Use Types [...] you have questions. Thanks, Tesha Maxwell PharmD [facility] on Wednesday & Wednesday [facility] on & Wednesday documented in this [...] sooner if questions or concerns arise. Updated [employer] list and reviewed medications including indications with [...] (HRC) Type II or unspecified type diabetes idnora litus without mention of complication, not stated as uncontrolled Hypercholesterolemia Pure hypercholesterolemia documented in this encounter Care Teams Furniture Upholsterer Apprentice Relationship Specialty Start Date End Date Alisha Kimball MD PCP - General 07/08/05 [address] [place] [address] documented as of this encounter
--- OUTSIDE RECORDS SUMMARY | 2022-06-12 09:43 | XMS_ITS | Encounter Summary ---
:1955 Author Organization [employer] Address [address] [place] [address] Care Team Providers Name Role Phone Carroll Kimball MD Primary Care Provider Encounter Details Date Type Department Care Team Description 03/06/2016 Lab Visit [facility] Diabetes mellitus, type 2 [address] [place], [place] [id number] Social History Tobacco Use Types Packs/Day Years [...] Res ults for this CDT type 2 ([facility]) procedure are i n the results [...] AM 6 7:32 CDT AM CDT Narrative [facility] - 03/06/2016 12:43 PM CDT Performed at [facility], [address] [place] [id number] Carroll Kimball MD LAB_1 Performing Organization Address City/State/ZIP Code Phon e Number [facility] [phone] documented in this encounter Visit Diagnoses Diagnosis Diabetes mellitus, type 2 (HRC) Type II or unspecified type diabetes dinora litus without mention of complication, not stated as uncontrolled documented in this encounter Care Teams Information Clerk [employer] Relationship Specialty Start Date End Date Carroll Kimball MD PCP - General 07/08/05 [address] [place] [address] documented as of this encounter
--- OUTSIDE RECORDS SUMMARY | 2022-06-12 09:43 | XMS_ITS | Encounter Summary ---
:1955 Author Organization [facility] Address [address] [place] [address] Care Team Providers Name Role Phone Alisha Kimball MD Primary Care Provider Reason for Visit Procedure/Equipment (Routine) - Closed Specialty Diagnoses / Procedures Referred By Contact Refer red To Contact Diagnoses Encounter for screening for malignant neoplasm of colon Alisha Kimball MD [address] [place] [address] Referral ID Status Reason Start Date Expiration Date Visits Requ ested Visits Authorized [id number] Closed 12/09/2015 03/09/2017 1 1 Encounter Details Date Type Department Care Team Description 04/01/2016 Procedure Visit [facility] Jean Claude Chauhan, [facility] safia MERLOS [address] [place] [address] [place], [place] [phone] [address] Social History Tobacco Use Types Packs/Day [...] Where can you learn more? Go to [employer] [place] and enter C571 in the search box. Current as of: May 24, 2015 Content Version: 108 ?? [phone] [employer] Learning About Diverticulosis and Diverticulitis What are [...] Where can you learn more? Go to [employer] [place] and enter E426 in the search box. Current as of: May 24, 2015 Content Version: 108 ?? 3773-7552 [employer], [place]. documented in this encounter Progress Notes Jean [...] . documented in this encounter Results COLONOSCOPY [[id number]] (04/01/2016 8:03 AM CDT) Specimen (Source) Anatomical [...] Code(s): ?? --- Professional - -- ? 18630, PT , Colonoscopy, flexible; with biopsy, single ? or multip le Diagnosis Code(s): ?? --- Professional - -- ? Z12.11, E ncounter for screening for malignant ? neoplasm of colon ? K62.1, Re ctal polyp ? K57.30, D iverticulosis of large intestine without ? perforati on or abscess without bleeding CPT copyright 2015 [employer]. All rights reserved. The codes documented in this report are preliminary and upon oil well pumper review may be revised to meet current [...] - Await Path results. I will contact [facility] letter in 1-2 weeks. - High fiber diet. Procedure Code(s): --- Professional --- 78565, PT, Colonoscopy, flexible; with biopsy, single or multiple Diagnosis Code(s): --- Professional --- Z12.11, Encounter for screening for mal ignant neoplasm of colon K62.1, Rectal polyp K57.30, Diverticulosis of large intesti ne without perforation or abscess without bleeding CPT copyright 2015 [employer]. All rights reserved. The codes documented in this report are preliminary and upon oil well pumper review may be revised to meet current complianc e requirements. Attending Participation: MD Jean Claude Stanton, 04/01/2016 8:30:39 AM Number of Addenda: 0 Note Initiated On: 04/01/2016 8:03 AM Jean Claude Chauhan MD DIGESTIVE CARE Performing Organization Address City/State/ZIP Code Phon e Number GI (PROVATION) GI (PROVATION) [place], [place] Surgical Path - Colonoscopy (04/01/2016 7:00 AM CDT) [facility] gist Method Time Signature Histology (NOTE) [...] is performed. ?? kds/04/02/2016 Denice Becerril MD [facility] Department of Pathology [address] [place] [address] ??[id number] Specimen Anatomical Collection Method Collection Time Receive d Time (Source) Location / / Volume Laterality COLON STRUCTURE / 04/01/2016 7:00 AM 03/06 Unknown CDT 11:14 AM CDT Jean Claude Chauhan MD LAB_1 Performing Organization Address City/State/ZIP Code Phon e Number [phone] [phone] documented in this encounter Visit Diagnoses Diagnosis [...] protocol. documented in this encounter Care Teams Medical Claims Examiner Relationship Specialty Start Date End Date Alisha Kimball MD PCP - General 07/08/05 [address] [place] [address] documented as of this encounter
--- OUTSIDE RECORDS SUMMARY | 2022-06-12 09:43 | XMS_ITS | Encounter Summary ---
:1955 Author Organization [facility] Address [address] [place] [address] Care Team Providers Name Role Phone Alisha Kimball MD Primary Care Provider Reason for Referral Procedure/Equipment (Routine) - Incomplete Specialty Diagnoses / Procedures Referred By Contact Refer red To Contact Procedures Provider, Not On File MAMMOGRAM SCREENING BILATERAL [address] [place] [address] Referral ID Status Reason Start Date Expiration Date Visits V isits Requested Authorized [id number] Incomplete 11/05/2014 1 1 Reason for Visit Procedure/Equipment (Routine) - Incomplete Specialty Diagnoses / Procedures Referred By Contact Refer red To Contact Procedures Provider, Not On File MAMMOGRAM SCREENING BILATERAL [address] [place] [address] Referral ID Status Reason Start Date Expiration Date Visits V isits Requested Authorized [id number] Incomplete 11/05/2014 1 1 Encounter Details Date Type Department Care Team Description 11/05/2014 Imaging [facility] ury Mammography [address] [place], [place] [phone] Social History Tobacco Use Types Packs/Day Years [...] filedocumented in this encounter Care Teams Laborer Gold Leaf Relationship Specialty Start Date End Date Alisha Kimball MD PCP - General 07/08/05 [address] [place] [address] documented as of this encounter
--- OUTSIDE RECORDS SUMMARY | 2022-06-12 09:43 | XMS_ITS | Encounter Summary ---
:1955 Author Organization [employer] [facility] [facility] Address [address] [place] [address] Care Team Providers Name Role Phone Carroll Avalos MD Primary Care Provider Reason for Visit Reason Comments Medication Questions amlodipine 10 mg Encounter Details Date Type Department Care Team Description 01/08/2016 Telephone [facility] Carroll Avalos MD Medication Questions Practice [address] (amlodipine 10 mg) [address] [place] [address] [place] [address] [phone] Social History Tobacco Use Types Packs/Day Years [...] 01/09/2016 9:24 AM CDT Per 12/09/2015 visit, / tab (5 mg). Carroll Avalos MD Veronica [...] on filedocumented in this encounter Care Teams Concert Singer Relationship Specialty Start Date End Date Carroll Avalos MD PCP - General 07/08/05 [address] [place] [address] documented as of this encounter
--- OUTSIDE RECORDS SUMMARY | 2022-06-12 09:43 | XMS_ITS | Encounter Summary ---
:1955 Author Organization [facility] Address [address] [place] [address] Care Team Providers Name Role Phone Alisha Kimball MD Primary Care Provider Reason for Visit Reason Comments PHARMACIST COUNSELING diabetes Encounter Details Date Type Department Care Team Description 02/10/2016 Pharmacy [facility], [facility] on PHARMACIST COUNSELING Pharmacy [address] [facility] (diabetes) [address] [place], [place] [address] [phone] (Wo rk) Social History Tobacco Use Types [...] ALISON BECKER 02/12/2016, 3:59 PM Brenton Pickard [facility] - 02/10/2016 10:42 AM CDT Topic / Disease State: Diabetes: Clinic Pharmacy Diabetes Encounter Notes Loc Velasco was at [facility] to speak with the pharmacist about [...] twocopies of the Rx Diabetes Report Card (34058). One copy will be provided to the patient and the second copy will be used to complete Epic documentation after patient consultation occurs. Patient at Goal? Yes. Please document using .rphdoc after speaking with the patient. documented in this encounter Plan of Treatment Not on filedocumented as of this encounter Visit Diagnoses Not on filedocumented in this encounter Care Teams Sewer Tapper Relationship Specialty Start Date End Date Alisha Kimball MD PCP - General 07/08/05 [address] [place] [address] documented as of this encounter
--- OUTSIDE RECORDS SUMMARY | 2022-06-12 09:43 | XMS_ITS | Encounter Summary ---
:1955 Author Organization [facility] Address [address] [place] [address] Care Team Providers Name Role Phone Alisha Kimball MD Primary Care Provider Reason for Visit Reason Comments FALL ARM PAIN SHOULDER PAIN Encounter Details Date Type Department Care Team Description 02/16/2016 Nurse Triage Careline Unknown, FALL; ARM PAIN; [address] Physician SHOULDER PAIN [place], [place] [address] [phone] [place], [place] [address] Social History Tobacco Use Types Packs/Day Years Used Date Smoking Tobacco: Never Smokeless Tobacco: Never Alcohol Use Standard Drinks/Week Comments No 0 (1 standard drink = 0.6 oz pure alcoho l) Sex Assigned at Date Recorded Not on file documented as of this encounter Nursing Notes Sonali Houston RN - 02/16/2016 4:32 PM CDT Protocol: SHOULDER [id number] Affirmative: Looks like a dislocated joint Disposition of Go To ED Now suggested. 1. MECHANISM: How did the injury happen? Response: fell on sidewalk Feels weak 2. ONSET: When did the injury happen? (Minutes or hours ago) Response: 9810 3. APPEARANCE of INJURY: What does the [...] clinic is the patient normally seen at? [facility]. Situation: Medical:Fell while walking today and injured her arm and shoulder. Does she need to be seen? Plan:A nurse will return your call. If your symptoms change for the worse, please call us back [phone].. documented in this encounter Plan of Treatment Not on filedocumented as of this encounter Visit Diagnoses Not on filedocumented in this encounter Care Teams Social And Human Services Assistant Relationship Specialty Start Date End Date Alisha Kimball MD PCP - General 07/08/05 [address] [place] [address] documented as of this encounter
--- OUTSIDE RECORDS SUMMARY | 2022-06-12 09:43 | XMS_ITS | Encounter Summary ---
:1955 Author Organization [facility] Address [address] [place] [address] Care Team Providers Name Role Phone Alisha Kimball MD Primary Care Provider Reason for Visit Reason Comments HTN MANAGEMENT AND EDUCATION Encounter Details Date Type Department Care Team Description 10/10/2015 Office Visit [facility] Tesha Maxwell, Essential hypertension (Prim levy Dx); [address] [facility] PharmD Diabetes mellitus, type 2 (HRC) [place] [address] [address] [facility] [phone] [place], [place] [address] Social History Tobacco Use [...] questions. Thanks, Tesha Maxwell PharmD [facility] on Wednesday & Wednesday [facility] on & Wednesday documented in [...] scheduled for December 08 at 11:00am. Updated [facility] med list and reviewed medications including indications [...] uncontrolled documented in this encounter Care Teams Video Control Operator Relationship Specialty Start Date End Date Alisha Kimball MD PCP - General 07/08/05 [address] [place] [address] documented as of this encounter
--- OUTSIDE RECORDS SUMMARY | 2022-06-12 09:43 | XMS_ITS | Encounter Summary ---
:1955 Author Organization [facility] Address [address] [address] Care Team Providers Name Role Phone Alisha Kimball MD Primary Care Provider Reason for Visit Reason Comments JERSEY TREVINO MD ear pain Encounter Details Date Type Department Care Team Description 12/27/2014 Office Visit [facility] Treasure Pak (upper respiratory infection) (Primary Dx); Rakesh Mcmahon MD Sore throat [address] [address] [phone] Social History Tobacco Use Types Packs/Day Years [...] negative screen?: No (12/27/2014 10:27 AM CDT) [facility] gist Method Time Signature Grp A Rapid Negative NEG [facility] Specimen Anatomical Collection Method Collection Time Receive d Time (Source) Location / / Volume Laterality 12/27/2014 10:27 12/27/2014 AM CDT 10:28 AM CDT Narrative [facility] - 12/27/2014 10:36 AM CDT Performed at [facility], [address] [place] [address] Treasure Pak MD LAB_1 Performing Organization Address City/State/ZIP Code Phon e Number [facility] [phone] documented in this encounter Visit Diagnoses Diagnosis URI (upper respiratory infection) - Prim levy Acute upper respiratory infections of un specified site Sore throat Acute pharyngitis documented in this encounter Care Teams Polishing Machine Operator Helper Relationship Specialty Start Date End Date Alisha Kimball MD PCP - General 07/08/05 [address] [place] [address] documented as of this encounter
--- OUTSIDE RECORDS SUMMARY | 2022-06-12 09:43 | XMS_ITS | Encounter Summary ---
:1955 Author Organization [facility] Address [address] [place] [address] Care Team Providers Name Role Phone Alisha [...] on filedocumented in this encounter Care Teams Ic Designer Custom Relationship Specialty Start Date End Date Alisha Kimball MD PCP - General 07/08/05 [address] [place] [id number] documented as of this encounter
--- OUTSIDE RECORDS SUMMARY | 2022-06-12 09:43 | XMS_ITS | Encounter Summary ---
:1955 Author Organization [facility] Address [address] [place] [address] Care Team Providers Name Role Phone Alisha Kimball MD Primary Care Provider Encounter Details Date Type Department Care Team Description 11/05/2014 Orders Only [facility] Diabetes mellitus, type [address] ([facility]) [place] [address] Social History Tobacco Use Types [...] RATIO Routine 11/05/2014 8:58 AM Diabetes mellit , Results for this CDT type 2 ([facility]) procedure are i n the results section. documented in this encounter Results MICROALB/CREAT RATIO (11/05/2014 8:58 AM CDT) [facility] gist Method Time Signature Albumin, <0.5 [...] 11/05/2014 1:39 PM C DT Performed at [facility], [address], [place], [place] ??[address] Alisha Kimball MD LAB_1 Performing Organization Address City/State/ZIP Code Phon e Number [facility] [phone] documented in this encounter Visit Diagnoses Diagnosis Diabetes mellitus, type 2 (HRC) Type II or unspecified type diabetes dinora litus without mention of complication, not stated as uncontrolled documented in this encounter Care Teams Mental Health Program Director Relationship Specialty Start Date End Date Alisha Kimball MD PCP - General 07/08/05 [address] [place] [address] documented as of this encounter
--- OUTSIDE RECORDS SUMMARY | 2022-06-12 09:43 | XMS_ITS | Encounter Summary ---
:1955 Author Organization [facility] Address [address] [place] [address] Care Team Providers Name Role Phone Alisha Kimball MD Primary Care Provider Reason for Visit Reason Comments LAB TESTS, NOS Encounter Details Date Type Department Care Team Description 07/25/2015 Telephone [facility] maxi Alisha Kimball MD LAB TESTS, NOS [address] [facility] [address] [place] [address] [place] [address] [phone] (Wo rk) Social History Tobacco Use Types Packs/Day Years Used Date Smoking Tobacco: Never Smokeless Tobacco: Never Alcohol Use Standard Drinks/Week Comments No 0 (1 standard drink = 0.6 oz pure alcoho l) Sex Assigned at Date Recorded Not on file documented as of this encounter Nursing Notes Francesca Cho CMA - 07/25/2015 8:07 AM CST Lab ordered CREW SUPERVISOR Yudy Werner - 07/25/2015 8:04 AM CST Patient on Lab Only Visit Schedule, no lab orders found in patient's chart. Please review and enter Future Lab Orders or notify the patient that lab work is not needed. Lab Only Visit scheduled for:07-27-15 After placing Future Orders, please route this Telephone Encounter to the following pool: [facility] -A1C CREW SUPERVISOR documented in this encounter Plan of Treatment Not on filedocumented as of this encounter Results (ABNORMAL) HGB A1C (07/27/2015 9:21 AM TRIM CREW SUPERVISOR) P athologist Signature Hgb A1c 7.2 [...] Volume Laterality 07/27/2015 9:21 AM 6 9:23 TRIM CREW SUPERVISOR AM TRIM CREW SUPERVISOR Narrative [facility] - 07/29/2015 11:47 AM TRIM CREW SUPERVISOR Performed at [facility], [address] [place] [address] Alisha Kimball MD LAB_1 Performing Organization Address City/State/ZIP Code Phon e Number [facility] [phone] documented in this encounter Visit Diagnoses Diagnosis Diabetes mellitus, type 2 (HRC) - Primar y Type II or unspecified type diabetes dinora litus without mention of complication, not stated as uncontrolled Diabetes mellitus, type 2 (HRC) Type II or unspecified type diabetes dinora litus without mention of complication, not stated as uncontrolled documented in this encounter Care Teams Vessel Operator Relationship Specialty Start Date End Date Alisha Kimball MD PCP - General 07/08/05 [address] [place] [address] documented as of this encounter
--- OUTSIDE RECORDS SUMMARY | 2022-06-12 09:43 | XMS_ITS | Encounter Summary ---
:1955 Author Organization [employer] Address [address] [place] [address] Care Team Providers Name Role Phone Alisha [...] Department Care Team Description 01/08/2016 Office Visit [facility] Abraham Rivas, Visit for eye and vision exa m (Primary Dx); [address] OD Presbyopia; [place] [address] Type 2 diabetes mellitus without complic ations ([facility]) [phone] [place], [place] [phone] Social History Tobacco Use Types Packs/Day Years [...] risks, benefits, potential complications andalternatives with your semiautomatic taper operator. Fortunately, complications from cataract surgery are relatively [...] last eye exam was on 06/[facility] [address] alfaro Diabetes is Type [...] uncontrolled documented in this encounter Care Teams Arabic Professor Relationship Specialty Start Date End Date Alisha Kimball MD PCP - General 07/08/05 [address] [place] [address] documented as of this encounter
--- OUTSIDE RECORDS SUMMARY | 2022-06-12 09:43 | XMS_ITS | Encounter Summary ---
:1955 Author Organization [facility] Address [address] [place] [address] Care Team Providers Name Role Phone Alisha Kimball MD Primary Care Provider Reason for Visit Reason Comments HTN MANAGEMENT AND EDUCATION Encounter Details Date Type Department Care Team Description 12/09/2015 Office Visit [facility] Tesha Maxwell, Diabetes mellitus, type 2 (H RC) (Primary Dx); [address] PharmD Essential hypertension; [place] [address] [address] Hypercholesterolemia (HRC) [phone] [place] [address] Social History Tobacco Use Types [...] , March 12 at 8:00am at the [facility]. Please call me or e-mail if you have questions. Thanks, Anne MurrietaD [facility] on Wednesday & Wednesday [facility] on & Wednesday documented in this encounter [...] for , March 12 at 8:00am Updated [employer] med list and reviewed medications including indications [...] hypercholesterolemia documented in this encounter Care Teams General Engineering Teacher Relationship Specialty Start Date End Date Alisha Kimball MD PCP - General 07/08/05 [address] [place] [address] documented as of this encounter
--- OUTSIDE RECORDS SUMMARY | 2022-06-12 09:43 | XMS_ITS | Encounter Summary ---
:1955 Author Organization [facility] Address [address] [place] [address] Care Team Providers Name Role Phone Alisha Kimball MD Primary Care Provider Reason for Referral Procedure/Equipment (Routine) - Closed Specialty Diagnoses / Procedures Referred By Contact Refer red To Contact Diagnoses Encounter for screening for malignant neoplasm of colon Alisha Kimball MD [address] [place] [address] Referral ID Status Reason Start Date Expiration Date Visits Requ ested Visits Authorized [id number] Closed 12/09/2015 03/09/2017 1 1 Scheduling Instructions Your provider has recommended an appoint ment for a screening colonoscopy with [facility] . You may call the [facility] at [phone] to schedule your colonoscopy. Screening colonoscopies are performed at [facility] in [place], as well as at [facility]. Reason for Visit Reason Comments ROUTINE HEALTH MAINTENANCE smartset Encounter Details Date Type Department Care Team Description 12/09/2015 Office Visit [facility] Alisha Kimball, [facility] (Primary Dx); Practice MD Screening for HIV (human immunodeficienc y virus); [address] Encounter for screening for malignant neoplasm of colon; [place] [address] [address] Need for hepatitis C screening test; [phone] [place], [place] Diabetes mellit us, type 2 (HRC); [address] Insomnia, unspecified type; [phone] [place] (seborrheic keratosis) (Work) Social History Tobacco [...] Where can you learn more? Go to [employer] and enter Y074 in the search box. Current as of: August 24, 2014 Content Version: 108 ?? [phone] Food[employer]. Colonoscopy: Before Your Procedure What is a [...] living will and a durable power of workers compensation attorney for health care. Bring a copy [...] not apply lotions, perfumes, deodorants, or nail cambodian. ?? Take off all jewelry and piercings. [...] Where can you learn more? Go to [employer] and enter C315 in the search box. Current as of: May 24, 2015 Content Version: 108 ?? [phone] [employer]. documented in this encounter Progress Notes Alisha [...] 50 MG tablet 7. Skin tag L91.8 42712 DESTRUC BENIGN LESIONS; UP 14 Patient counseled: [...] 7:32 CDT AM CDT Narrative [facility] - 03/06/2016 12:43 PM CDT Performed at [facility], [address] [place] [address] Alisha Kimball MD LAB_1 Performing Organization Address City/State/ZIP Code Phon e Number [facility] [phone] documented in this encounter Visit Diagnoses Diagnosis [...] uncontrolled documented in this encounter Care Teams Farm Specialist Relationship Specialty Start Date End Date Alisha Kimball MD PCP - General 07/08/05 [address] [place] [address] documented as of this encounter
--- OUTSIDE RECORDS SUMMARY | 2022-06-12 09:43 | XMS_ITS | Encounter Summary ---
:1955 Author Organization [facility] Address [address], [place] [address] Care Team Providers Name Role Phone Alisha Kimball MD Primary Care Provider Reason for Visit Reason Comments PHARMACIST COUNSELING diabetes Encounter Details Date Type Department Care Team Description 05/23/2015 Pharmacy [facility], Ho on PHARMACIST COUNSELING Pharmacy [address] [facility] (diabetes) [address] [place], [place] [address] [phone] (Wo rk) Social History Tobacco Use Types [...] be closed. Brenton Pickard 05/24/2015, 2:54 PM EWATER TREATMENT PLANT CHEMIST Brenton Pickard RPh - 05/23/2015 12:53 PM CST Topic / Disease State: Diabetes: Clinic Pharmacy Diabetes [facility] pharmacist about [...] twocopies of the Rx Diabetes Report Card (45919). One copy will be provided to the patient and the second copy will be used to complete Epic documentation after patient consultation occurs. Patient at Goal? No. Please document using .rphdoc after speaking with the patient. EWATER TREATMENT PLANT CHEMIST documented in this encounter Plan of Treatment Not on filedocumented as of this encounter Visit Diagnoses Not on filedocumented in this encounter Care Teams Phone Manager Relationship Specialty Start Date End Date Alisha Kimball MD PCP - General 07/08/05 [address] [place] [address] documented as of this encounter
--- OUTSIDE RECORDS SUMMARY | 2022-06-12 09:43 | XMS_ITS | Encounter Summary ---
:1955 Author Organization [employer] Address [address] [place] [address] Care Team Providers Name Role Phone Alisha Kimball MD Primary Care Provider Reason for Visit Reason Comments MEDICATION THERAPY MANAGEMENT Encounter Details Date Type Department Care Team Description 03/12/2016 Office Visit [facility] Tesha Maxwell, Diabetes mellitus, type 2 (H RC) (Primary Dx); [address] [facility] PharmD Essential hypertension; [place], [place] [address] Hypercholeste rolemia (HRC) [address] [facility] [phone] [place] [address] Social History Tobacco Use Types [...] you have questions. Thanks, Tesha Maxwell PharmD [facility] on Wednesday & Wednesday [facility] on & Wednesday documented in this [...] scheduled for April 09 at 8:00am. Updated Pose list and reviewed medications including indications with [...] hypercholesterolemia documented in this encounter Care Teams Aircraft Restorer Relationship Specialty Start Date End Date Alisha Kimball MD PCP - General 07/08/05 [address] [place] [address] documented as of this encounter
--- OUTSIDE RECORDS SUMMARY | 2022-06-12 09:43 | XMS_ITS | Encounter Summary ---
:1955 Author Organization [employer] Address [address] [address] Care Team Providers Name Role Phone Alisha Kimball MD Primary Care Provider Reason for Visit Reason Comments MEDICATION THERAPY MANAGEMENT Encounter Details Date Type Department Care Team Description 07/29/2015 Office Visit [facility] Tesha Maxwell, Diabetes mellitus, type 2 (H RC) (Primary Dx); [address] PharmD Essential hypertension; [place] [address] [address] Hypercholesterolemia (HRC) [phone] [place] [address] Social History Tobacco Use Types Packs/Day Years Used Date Smoking Tobacco: Never Smokeless Tobacco: Never Alcohol Use Standard Drinks/Week Comments No 0 (1 standard drink = 0.6 oz pure alcoho l) Sex Assigned at Date Recorded Not on file documented as of this encounter Last Filed Vital Signs Vital Sign Reading Time Taken Comments Blood Pressure 135/91 07/29/2015 8:03 AM MACROECONOMICS PROFESSOR Pulse 72 07/29/2015 8:03 AM MACROECONOMICS PROFESSOR Temperature - - Respiratory Rate - - Oxygen Saturation - - Inhaled Oxygen Concentration - - Weight 84.6 kg (186 lb 9.6 oz) 07/29/2015 7:51 AM MACROECONOMICS PROFESSOR Height - - Body Mass Index 32.03 [...] for August 30 at 8:00am at the [facility]). Please call me or e-mail if you have questions. Thanks, Tesha Maxwell PharmD [facility] on Wednesday & Wednesday [facility] on & Wednesday OECONOMICS PROFESSOR documented in this encounter Progress Notes Tesha [...] for Wednesday, August 30 at 8:00am. Updated [facility] med list and reviewed medications including indications with patient. Total time spent with patient 30 minutes. Tesha Maxwell PharmD Clinical Pharmacist Medication Therapy Management Program OECONOMICS PROFESSOR documented in this encounter Plan of Treatment Not on filedocumented as of this encounter Visit Diagnoses Diagnosis Diabetes mellitus, type 2 (HRC) - Primar y Type II or unspecified type diabetes dinora litus without mention of complication, not stated as uncontrolled Essential hypertension (HRC) Unspecified essential hypertension Hypercholesterolemia Pure hypercholesterolemia documented in this encounter Care Teams Paper Slitter Relationship Specialty Start Date End Date Alisha Kimball MD PCP - General 07/08/05 [address] [place] [address] documented as of this encounter
--- OUTSIDE RECORDS SUMMARY | 2022-06-12 09:43 | XMS_ITS | Encounter Summary ---
:1955 Author Organization [facility] Address [address], [place] [address] Care Team Providers Name Role Phone Alisha Kimball MD Primary Care Provider Reason for Visit Reason Onset Date Comments Refill 11/13/2015 Encounter Details Date Type Department Care Team Description 11/13/2015 Refill [facility] Tesha Maxwell PharmD Refill [address] [place] [address] [place], [place] [phone] (Wo rk) Social History Tobacco Use Types Packs/Day Years Used Date Smoking Tobacco: Never Smokeless Tobacco: Never Alcohol Use Standard Drinks/Week Comments No 0 (1 standard drink = 0.6 oz pure alcoho l) Sex Assigned at Date Recorded Not on file documented as of this encounter Nursing Notes Tesha Maxwell PharmD - 11/13/2015 7:34 AM CDT per CPA refill for metformin sent to [facility] pharmacy. Tesha Maxwell PharmD 11/13/2015, 7:35 AM documented in this encounter Plan of Treatment Not on filedocumented as of this encounter Visit Diagnoses Diagnosis Diabetes mellitus, type 2 (HRC) - Primar y Type II or unspecified type diabetes dinora litus without mention of complication, not stated as uncontrolled documented in this encounter Care Teams Plant Worker Relationship Specialty Start Date End Date Alisha Kimball MD PCP - General 07/08/05 [address] [place] [address] documented as of this encounter
--- OUTSIDE RECORDS SUMMARY | 2022-06-12 09:43 | XMS_ITS | Encounter Summary ---
:1955 Author Organization [employer] Address [address] [place] [address] Care Team Providers Name Role Phone Alisha Kimball MD Primary Care Provider Reason for Visit Reason Comments MEDICATION THERAPY MANAGEMENT SEGIP Encounter Details Date Type Department Care Team Description 11/05/2014 Office Visit [facility] Tesha Maxwell, Diabetes mellitus, type 2 (H RC) (Primary Dx); [address] PharmD Essential hypertension; [place] [address] [address] Hypercholesterolemia [phone] [place], [place] [id number] Social History Tobacco Use Types Packs/Day Years [...] you have questions. Thanks, Tesha Maxwell PharmD [facility] on Wednesday & Wednesday: [phone] [facility] on & Wednesday: [phone] [phone] documented in this encounter Progress Notes [...] me in 6 month(s) for follow-up. Updated [facility] med list and reviewed medications including indications [...] hypercholesterolemia documented in this encounter Care Teams Cage Tender Relationship Specialty Start Date End Date Alisha Kimball MD PCP - General 07/08/05 [address] [place] [address] documented as of this encounter
--- OUTSIDE RECORDS SUMMARY | 2022-06-12 09:43 | XMS_ITS | Encounter Summary ---
:1955 Author Organization [employer] Address [address] [place] [address] Care Team Providers Name Role Phone Alisha Kimball MD Primary Care Provider Encounter Details Date Type Department Care Team Description 07/27/2015 Orders Only [facility] Diabetes mellitus, type 2 [address] [facility]) [place], [place] [address] Social History Tobacco Use [...] AM Diabetes mellitus, Res ults for this DIESEL LOCOMOTIVE FIRER/FIREMAN type 2 ([facility]) procedure are i n the results section . documented in this encounter Results (ABNORMAL) HGB A1C (07/27/2015 9:21 AM DIESEL LOCOMOTIVE FIRER/FIREMAN) P athologist Signature Hgb A1c 7.2 (H) [...] Volume Laterality 07/27/2015 9:21 AM 6 9:23 DIESEL LOCOMOTIVE FIRER/FIREMAN AM DIESEL LOCOMOTIVE FIRER/FIREMAN Narrative [facility] - 07/29/2015 11:47 AM DIESEL LOCOMOTIVE FIRER/FIREMAN Performed at [facility], [address] [place] [address] ??[id number] Alisha Kimball MD LAB_1 Performing Organization Address City/State/ZIP Code Phon e Number [facility] [phone] documented in this encounter Visit Diagnoses Diagnosis Diabetes mellitus, type 2 (HRC) Type II or unspecified type diabetes dinora litus without mention of complication, not stated as uncontrolled documented in this encounter Care Teams Title Manager Relationship Specialty Start Date End Date Alisha Kimball MD PCP - General 07/08/05 [address] [place] [address] documented as of this encounter
--- OUTSIDE RECORDS SUMMARY | 2022-06-12 09:43 | XMS_ITS | Encounter Summary ---
:1955 Author Organization [employer] Address [address] [place] [address] Care Team Providers Name Role Phone Alisha Kimball MD Primary Care Provider Reason for Visit Reason Comments Medication Questions Encounter Details Date Type Department Care Team Description 01/02/2015 Telephone [facility] Alisha Kimball MD Medication Questions Medicine [address] [place] [address] [place], [place] [address] [phone] Social History Tobacco Use Types Packs/Day Years [...] new Accucheck Plus lancet device. Patient will flower picker when able. Tesha Maxwell PharmD 01/02/2015, [...] on filedocumented in this encounter Care Teams Technician Helper Instrument Relationship Specialty Start Date End Date Alisha Kimball MD PCP - General 07/08/05 [address] [place] [address] documented as of this encounter
--- OUTSIDE RECORDS SUMMARY | 2022-06-12 09:43 | XMS_ITS | Encounter Summary ---
:1955 Author Organization [facility] [employer] Address [address] [place] [address] Care Team Providers Name Role Phone Alisha Kimball MD Primary Care Provider Reason for Visit Reason Comments LAB TESTS, NOS Encounter Details Date Type Department Care Team Description 11/20/2015 Telephone [facility] maxi Alisha Kimball MD LAB TESTS, NOS [address] [facility]. [address] [place] [address] [place] [address] [phone] (Wo rk) Social History Tobacco Use Types [...] Results MICROALB/CREAT RATIO (11/30/2015 9:08 AM CDT) [facility] gist Method Time Signature Albumin, 0.8 [...] 12/03/2015 2:50 PM C DT Performed at [facility], [address] [place] [address] ??[id number] Alisha Kimball MD LAB_1 Performing Organization Address [facility] Phon e Number [facility] [phone] (ABNORMAL) ALT (SGPT) (11/30/2015 9:08 AM CDT) athologist Signature ALT (SGPT) 74 (H) 0 - 69 U/L [facility] Specimen Anatomical Collection Method Collection Time Receive d Time (Source) Location / / Volume Laterality 11/30/2015 9:08 AM 6 9:10 CDT AM CDT Narrative [facility] - 12/03/2015 12:22 PM CDT Performed at [facility], [address] [place] [address] ??[id number] Alisha Kimball MD LAB_1 Performing Organization Address City/[facility] Phon e Number [facility] [phone] (ABNORMAL) HGB A1C (11/30/2015 9:08 AM CDT) [...] - 12/03/2015 12:24 PM CDT Performed at [facility], [address] [place] [address] ??[id number] Alisha Kimball MD LAB_1 Performing Organization Address [facility] Phon e Number [facility] [phone] (ABNORMAL) LIPID PANEL AND DIRECT LDL(IF NEEDED) (11/30/2015 9:08 AM CDT) [facility] Method Time Signature Hours Fasting [...] - 12/03/2015 12:22 PM CDT Performed at [facility], [address] [place] [address] ??[id number] Alisha Kimball MD LAB_1 Performing Organization Address [facility] Phon e Number [facility] [phone] SODIUM (11/30/2015 9:08 AM CDT) P athologist Signature Sodium 143 135 - 145 [facility] mmol/L Specimen Anatomical Collection Method Collection Time Receive d Time (Source) Location / / Volume Laterality 11/30/2015 9:08 AM 6 9:10 CDT AM CDT Narrative [facility] - 12/03/2015 12:22 PM CDT Performed at [facility], [address] [place] [address] ??[phone] Alisha Kimball MD LAB_1 Performing Organization Address [facility]/ZIP Code Phon e Number [facility] [phone] POTASSIUM (11/30/2015 9:08 AM CDT) P athologist Signature Potassium 4.8 3.5 - 5.3 [facility] mmol/L Specimen Anatomical Collection Method Collection Time Receive d Time (Source) Location / / Volume Laterality 11/30/2015 9:08 AM 6 9:10 CDT AM CDT Narrative [facility] - 12/03/2015 12:22 PM CDT Performed at [facility], [address] [place] [address] ??[id number] Alisha Kimball MD LAB_1 Performing Organization Address [facility] Code Phon e Number [facility] [phone] CREATININE / GFR (11/30/2015 9:08 AM CDT) [...] - 12/03/2015 12:22 PM CDT Performed at [facility], [address] [place] [address] ??[id number] Alisha Kimball MD LAB_1 Performing Organization Address [facility] Phon e Number [facility] [phone] documented in this encounter Visit Diagnoses Diagnosis [...] uncontrolled documented in this encounter Care Teams Search Manager Relationship Specialty Start Date End Date Alisha Kimball MD PCP - General 07/08/05 [address] [place] [address] documented as of this encounter
--- OUTSIDE RECORDS SUMMARY | 2022-06-12 09:43 | XMS_ITS | Encounter Summary ---
:1955 Author Organization [employer] Address [address] [place] [address] Care Team Providers Name Role Phone Alisha Kimball MD Primary Care Provider Encounter Details Date Type Department Care Team Description 11/30/2015 Lab Visit [place] Essential hyper tension; Laboratory Hypercholesterolemia (HRC); [address] [facility] Diabetes mellitus, type 2 (H RC) [place], [place] [address] Social History Tobacco Use [...] 12/03/2015 2:50 PM C DT Performed at [facility], [address] [place] [address] ??[id number] Alisha Kimball MD LAB_1 Performing Organization Address [facility] Phon e Number [facility] [phone] (ABNORMAL) ALT (SGPT) (11/30/2015 9:08 AM CDT) P athologist Signature ALT (SGPT) 74 (H) 0 - 69 U/L [facility] Specimen Anatomical Collection Method Collection Time Receive d Time (Source) Location / / Volume Laterality 11/30/2015 9:08 AM 201 6 9:10 CDT AM CDT Narrative [facility] - 12/03/2015 12:22 PM CDT Performed at [facility], [address] [place] [address] ??[address] Alisha Kimball MD LAB_1 Performing Organization Address City/[facility]/ZIP Code Phon e Number [facility] [phone] (ABNORMAL) HGB A1C (11/30/2015 9:08 AM CDT) [...] - 12/03/2015 12:24 PM CDT Performed at [facility], [address] [place] [address] ??[phone] Alisha Kimball MD LAB_1 Performing Organization Address City/[facility] Code Phon e Number [facility] [phone] (ABNORMAL) LIPID PANEL AND DIRECT LDL(IF NEEDED) [...] - 12/03/2015 12:22 PM CDT Performed at [facility], [address] [place] [address] ??[address] Alisha Kimball MD LAB_1 Performing Organization Address City/[facility]/ZIP [facility] Phon e Number [facility] [phone] SODIUM (11/30/2015 9:08 AM CDT) P athologist Signature Sodium 143 135 - 145 [facility] mmol/L Specimen Anatomical Collection Method Collection Time Receive d Time (Source) Location / / Volume Laterality 11/30/2015 9:08 AM 6 9:10 CDT AM CDT Narrative [facility] - 12/03/2015 12:22 PM CDT Performed at [facility], [address] [place] [address] ??[phone] Alisha Kimball MD LAB_1 Performing Organization Address City/[facility] Phon e Number [facility] [phone] POTASSIUM (11/30/2015 9:08 AM CDT) P athologist Signature Potassium 4.8 3.5 - 5.3 [facility] mmol/L Specimen Anatomical Collection Method Collection Time Receive d Time (Source) Location / / Volume Laterality 11/30/2015 9:08 AM 6 9:10 CDT AM CDT Narrative [facility] - 12/03/2015 12:22 PM CDT Performed at [facility], [address] [place] [address] ??[phone] Alisha Kimball MD LAB_1 Performing Organization Address [facility] Phon e Number [facility] [phone] CREATININE / GFR (11/30/2015 9:08 AM CDT) [...] - 12/03/2015 12:22 PM CDT Performed at [facility], [address] [place] [address] ??[phone] Alisha Kimball MD LAB_1 Performing Organization Address City/State/ZIP Code Phon e Number [facility] [phone] documented in this encounter Visit Diagnoses Diagnosis Essential hypertension (HRC) Unspecified essential hypertension Hypercholesterolemia Pure hypercholesterolemia Diabetes mellitus, type 2 (HRC) Type II or unspecified type diabetes dinora litus without mention of complication, not stated as uncontrolled documented in this encounter Care Teams It Application Architect Relationship Specialty Start Date End Date Alisha Kimball MD PCP - General 07/08/05 [address] [place] [address] documented as of this encounter
--- OUTSIDE RECORDS SUMMARY | 2022-06-12 09:43 | XMS_ITS | Encounter Summary ---
:1955 Author Organization [employer] Address [address] [place] [address] Care Team Providers Name Role Phone Alisha Kimball MD Primary Care Provider Reason for Visit Reason Comments HTN MANAGEMENT AND EDUCATION Encounter Details Date Type Department Care Team Description 09/12/2015 Office Visit [facility] Tesha Maxwell, Essential hypertension (Prim levy Dx); [address] [facility] PharmD Diabetes mellitus, type 2 (HRC) [place] [address] [address] [facility] [phone] [place], [place] [address] Social History Tobacco Use Types Packs/Day Years Used Date Smoking Tobacco: Never Smokeless Tobacco: Never Alcohol Use Standard Drinks/Week Comments No 0 (1 standard drink = 0.6 oz pure alcoho l) Sex Assigned at Date Recorded Not on file documented as of this encounter Last Filed Vital Signs Vital Sign Reading Time Taken Comments Blood Pressure 132/94 09/12/2015 7:53 AM PRECISION GRINDER Pulse 75 09/12/2015 7:53 AM PRECISION GRINDER Temperature - - Respiratory Rate - - [...] PharmD [facility] on Wednesday & Wednesday [facility] on & Wednesday ISION GRINDER documented in this encounter Progress Notes Tesha [...] scheduled for October 09 at 8:00am Updated [employer] med list and reviewed medications including indications with patient. Total time spent with patient 30 minutes. Tesha Maxwell PharmD Clinical Pharmacist Medication Therapy Management Program ISION GRINDER documented in this encounter Plan of Treatment Not on filedocumented as of this encounter Visit Diagnoses Diagnosis Essential hypertension (HRC) - Primary Unspecified essential hypertension Diabetes mellitus, type 2 (HRC) Type II or unspecified type diabetes dinora litus without mention of complication, not stated as uncontrolled documented in this encounter Care Teams Front Desk Clerk Relationship Specialty Start Date End Date Alisha Kimball MD PCP - General 07/08/05 [address] [place] [address] documented as of this encounter
--- OUTSIDE RECORDS SUMMARY | 2022-06-12 09:43 | XMS_ITS | Encounter Summary ---
:1955 Author Organization [facility] Address [address] [place] [address] Care Team Providers Name Role Phone Alisha Kimball MD Primary Care Provider Reason for Referral Procedure/Equipment (Routine) - Incomplete Specialty Diagnoses / Procedures Referred By Contact Refer red To Contact Procedures Alisha Kimball MD MM Mammogram Screening [place] [address] [place] [address] Referral ID Status Reason Start Date Expiration Date Visits V isits Requested Authorized [id number] Incomplete 01/08/2016 04/08/2017 1 1 Reason for Visit Procedure/Equipment (Routine) - Incomplete Specialty Diagnoses / Procedures Referred By Contact Refer red To Contact Procedures Alisha Kimball MD MM Mammogram Screening [place] [address] [place] [address] Referral ID Status Reason Start Date Expiration Date Visits V isits Requested Authorized [id number] Incomplete 01/08/2016 04/08/2017 1 1 Encounter Details Date Type Department Care Team Description 01/08/2016 Imaging [facility] Mammography [address] [place] [address] Social History Tobacco Use Types [...] filedocumented in this encounter Care Teams Industrial Relations Representative Relationship Specialty Start Date End Date Alisha Kimball MD PCP - General 07/08/05 [address] [place] [address] documented as of this encounter
--- OUTSIDE RECORDS SUMMARY | 2022-06-12 09:43 | XMS_ITS | Encounter Summary ---
:1955 Author Organization [employer] Address [address] [place] [address] Care Team Providers Name Role Phone Alisha Kimball MD Primary Care Provider Reason for Visit Reason Comments Refill atorvastatin (LIPITOR) 10 MG tablet [Pharmacy Med Name: ATORVASTATIN 10MG TABS] Encounter Details Date Type Department Care Team Description 02/09/2016 Refill [place] [facility] Alisha Kimball MD Refill (atorvastatin Medicine [address] (LIPITOR) 10 MG tablet [address] [place] [address] [Pharmacy Med Name: [place] [address] ATORVASTATIN 10MG TABS]) [phone] Social History Tobacco Use Types Packs/Day Years [...] visit 12/09/2015. Alisha Kimball MD Interface, [email or web address] Prov Query - 02/09/2016 6:45 AM CDT [...] LDL: 72 mg/dL on 11/30/2015 Powered by [employer], Reference: [id number], 02/09/2016 6:45:41 AM CDT, Pool: ARNOLD AMEZQUITA RN ([id number]) documented in this encounter Plan of Treatment Not on filedocumented as of this encounter Visit Diagnoses Not on filedocumented in this encounter Care Teams Drum Maker Relationship Specialty Start Date End Date Alisha Kimball MD PCP - General 07/08/05 [address] [place] [address] (work) documented as of this encounter
--- OUTSIDE RECORDS SUMMARY | 2022-06-12 09:43 | XMS_ITS | Encounter Summary ---
:1955 Author Organization [employer] Address [address], [place] [address] Care Team Providers Name Role Phone Alisha Kimball MD Primary Care Provider Reason for Visit Reason Comments Refill Encounter Details Date Type Department Care Team Description 2015 Refill [place] [facility] Al Alisha Remy MD Refill [address] [facility]. [address] [place] [address] [place], [place] [phone] (Wo rk) Social History Tobacco Use Types [...] - LDL: 87.0mg/dL on 10/27/2014 Powered by [employer], Reference: [id number], 2015 9:48:30 PM CDT, Pool: ARNOLD REFILL RN ([id number]) documented in this encounter Plan of Treatment Not on filedocumented as of this encounter Visit Diagnoses Not on filedocumented in this encounter Care Teams Supervisor Filter Assembly Relationship Specialty Start Date End Date Alisha Kimball MD PCP - General 07/08/05 [address] [place] [address] documented as of this encounter
--- OUTSIDE RECORDS SUMMARY | 2022-06-12 09:43 | XMS_ITS | Encounter Summary ---
:1955 Author Organization [employer] Address [address] [place] [address] Care Team Providers Name Role Phone Alisha Kimball MD Primary Care Provider Reason for Visit Reason Onset Date Comments Medication Questions 12/17/2014 Encounter Details Date Type Department Care Team Description 12/17/2014 Telephone [facility] Tesha Maxwell, Medication Questions [address]50 [facility] [place] [address] 8450 [facility] [phone] [place], [place] [address] (Wo rk) Social History [...] back, requesting Accu-Chek Edilma be sent to [facility]. Tesha Maxwell PharmD - 12/17/2014 2:22 PM CDT Returned patient's call. Patient was in [place] for a wedding and left her glucometer. [...] filedocumented in this encounter Care Teams Nursing Home Admissions Director Relationship Specialty Start Date End Date Alisha Kimball MD PCP - General 07/08/05 [address] [place] [address] documented as of this encounter
--- OUTSIDE RECORDS SUMMARY | 2022-06-12 09:44 | XMS_ITS | Encounter Summary ---
:1955 Author Organization [facility] Address [address], [place] [address] Care Team Providers Name Role Phone Alisha Kimball MD Primary Care Provider Encounter Details Date Type Department Care Team Description 10/30/2013 Orders Only [facility] Alisha Kimball, Diabetes mellitus, Practice MD type 2 (Primary Dx) 8450 [facility]. [address] [place] [address] [place], [place] [id number] Social History Tobacco Use Types Packs/Day Years [...] 12:25 PM CDT Performed at [facility], [address] [place] [address] ??[phone] Alisha Kimball MD LAB_1 Performing Organization Address City/State/ZIP Code Phon e Number [facility] [phone] documented in this encounter Visit Diagnoses Diagnosis Diabetes mellitus, type 2 (HRC) - Primar y Type II or unspecified type diabetes dinora litus without mention of complication, not stated as uncontrolled Diabetes mellitus, type 2 (HRC) Type II or unspecified type diabetes dinora litus without mention of complication, not stated as uncontrolled documented in this encounter Care Teams Winch Derrick Operator Relationship Specialty Start Date End Date Alisha Kimball MD PCP - General 07/08/05 [address] [place] [address] documented as of this encounter
--- OUTSIDE RECORDS SUMMARY | 2022-06-12 09:44 | XMS_ITS | Encounter Summary ---
:1955 Author Organization [facility] Address [address] [place] [address] Care Team Providers Name Role Phone Alisha Kimball MD Primary Care Provider Encounter Details Date Type Department Care Team Description 09/24/2013 Notes/Orders [facility] Alisha Kimball, Issue of repeat Practice prescriptions (Primary [address] [place]x) [place] [address] [place], [place] [phone] Social History Tobacco Use Types Packs/Day Years [...] - NEXT LAB APPOINTMENT: 09/29/2013 Powered by [employer], Reference: [id number], 09/24/2013 8:49:09 PM CDT documented in this encounter Plan of Treatment Not on filedocumented as of this encounter Visit Diagnoses Diagnosis Issue of repeat prescriptions - Primary documented in this encounter Care Teams Natural Resource Officer Relationship Specialty Start Date End Date Alisha Kimball MD PCP - General 07/08/05 [address] [place] [address] documented as of this encounter
--- OUTSIDE RECORDS SUMMARY | 2022-06-12 09:44 | XMS_ITS | Encounter Summary ---
:1955 Author Organization [facility] Address [address] [place] [address] Care Team Providers Name Role Phone Alisha [...] call. David Kat MD 08/28/2014, 5:20 PM CUTTER documented in this encounter Plan of Treatment Not on filedocumented as of this encounter Visit Diagnoses Not on filedocumented in this encounter Care Teams Medicaid Plan Compliance Director Relationship Specialty Start Date End Date Alisha Kimball MD PCP - General 07/08/[address] [place], [place] [phone] documented as of this encounter
--- OUTSIDE RECORDS SUMMARY | 2022-06-12 09:44 | XMS_ITS | Encounter Summary ---
:1955 Author Organization [employer] Address [address] [address] Care Team Providers Name Role Phone Alisha Kimball MD Primary Care Provider Reason for Visit Reason Comments Refill Encounter Details Date Type Department Care Team Description 04/15/2014 Refill [facility] Alisha Steinberg MD Refill 8450 [facility]. [address] [place] [address] [place], [place] [phone] (Wo rk) Social History Tobacco Use Types [...] - HBA1C: 7.0% on 10/29/2013 Powered by [employer], Reference: [id number], 04/15/2014 7:44:25 PM CDT, Pool: ARNOLD KIMILL RN ([id number]) documented in this encounter Plan of Treatment Not on filedocumented as of this encounter Visit Diagnoses Not on filedocumented in this encounter Care Teams Experimental Machining Lab Manager Relationship Specialty Start Date End Date Alisha Kimball MD PCP - General 07/08/05 8450 [facility] [place] [address] documented as of this encounter
--- OUTSIDE RECORDS SUMMARY | 2022-06-12 09:44 | XMS_ITS | Encounter Summary ---
:1955 Author Organization [employer] [facility] Address [address] [address] Care Team Providers Name Role Phone Alisha Kimball MD Primary Care Provider Reason for Visit Reason Comments Refill Encounter Details Date Type Department Care Team Description 12/09/2013 Refill [facility] Alisha Kimball MD Refill 8450 [facility]. [address] [place] [address] [place], [place] [phone] (Wo rk) Social History Tobacco Use Types [...] - LDL: 78.0mg/dL on 10/30/2013 Powered by [employer], Reference: [id number], 12/09/2013 2:55:15 PM CDT documented in this encounter Plan of Treatment Not on filedocumented as of this encounter Visit Diagnoses Diagnosis Unspecified essential hypertension (HRC) Unspecified essential hypertension Pure hypercholesterolemia documented in this encounter Care Teams Fleet Sales Associate Relationship Specialty Start Date End Date Alisha Kimball MD PCP - General 07/08/05 [address] [place] [address] documented as of this encounter
--- OUTSIDE RECORDS SUMMARY | 2022-06-12 09:44 | XMS_ITS | Encounter Summary ---
:1955 Author Organization [facility] Address [address] [place] [address] Care Team Providers Name Role Phone Alisha Kimball MD Primary Care Provider Encounter Details Date Type Department Care Team Description 08/24/2014 Orders Only [facility] Abdominal pain, [address] [place] [address] Social History Tobacco Use Types [...] Abdominal pain, Res ults for this COUNT-W/DIFF PULP DRIER generalized procedure are i n the results section. URINE CULTURE Routine 08/24/2014 10:24 AM Abdominal pain, Resu lts for this PULP DRIER generalized procedure are i n the results section. BASIC METABOLIC Routine 08/24/2014 10:24 AM Abdominal pain, Re sults for this PANEL PULP DRIER generalized procedure are i n the results section. H. PYLORI IGG Routine 08/24/2014 10:24 AM Abdominal pain, Resu lts for this PULP DRIER generalized procedure are i n the results section. C-REACTIVE PROTEIN Routine 08/24/2014 10:24 AM Abdominal pain, Results for this PULP DRIER generalized procedure are i n the results section. UA WITH MICRO Waiting 08/24/2014 10:24 AM Abdominal pain, Resu lts for this PULP DRIER generalized procedure are i n the results section. documented in this encounter Results H. PYLORI IGG (08/24/2014 10:24 AM PULP DRIER) [facility] Method Time Signature H. pylori IgG Negative NEG [facility] Specimen Anatomical Collection Method Collection Time Receive d Time (Source) Location / / Volume Laterality 08/24/2014 10:24 08/24/2014 AM PULP DRIER 10:25 AM PULP DRIER Narrative [facility] - 08/27/2014 2:[address] Performed at [facility], [address] [place] [address] ??[phone] David Kat MD LAB_1 Performing Organization Address City/[facility] Phon e Number [facility] [phone] URINE CULTURE (08/24/2014 10:24 AM PULP DRIER) Component Value Ref Test Analysis Performed At [facility] Method Time Signature Specimen Urine [facility] Description Midstream [facility] Special Unspecified [facility] Requests [facility] Culture No Growth [facility] After 1 Day [facility] Report Status Final [facility] 08/25/2014 [facility] Specimen Anatomical Collection Method Collection Time Receive d Time (Source) Location / / Volume Laterality 08/24/2014 10:24 08/24/2014 AM PULP DRIER 10:25 AM PULP DRIER Narrative [facility] - 08/25/2014 1:[address] Performed at [facility] , [address] [place] [id number] David Kat MD LAB_1 Performing Organization Address City/[facility]/ZIP Code Phon e Number [facility] [phone] (ABNORMAL) UA WITH MICRO (08/24/2014 10:24 AM PULP DRIER) [facility] Method Time Signature Urine Color Yellow [...] / Volume Laterality 08/24/2014 10:24 08/24/2014 AM PULP DRIER 10:25 AM PULP DRIER Narrative [facility] - 08/24/2014 10:37 AM PULP DRIER Performed at [facility], [address] [place] [address] ??[id number] David Kat MD LAB_1 Performing Organization Address City/[facility]/ZIP [facility] Phon e Number [facility] [phone] (ABNORMAL) BASIC METABOLIC PANEL (08/24/2014 10:24 AM PULP DRIER) [facility] Method Time Signature Sodium 143 135 - [...] / Volume Laterality 08/24/2014 10:24 08/24/2014 AM PULP DRIER 10:25 AM PULP DRIER Narrative [facility] - 08/24/2014 2:[address] Performed at [facility], [address] ??[phone] David Kat MD LAB_1 Performing Organization Address City/[facility]/ZIP Code Phon e Number [facility] [phone] (ABNORMAL) C-REACTIVE PROTEIN (08/24/2014 10:24 AM PULP DRIER) [facility] Method Time Signature C-Reactive 5.7 (H) 0.0 - 0.9 [facility] Protein mg/dl LABORATORIES Comment: Note: results are expressed in mg/dL. Specimen Anatomical Collection Method Collection Time Receive d Time (Source) Location / / Volume Laterality 08/24/2014 10:24 08/24/2014 AM PULP DRIER 10:25 AM PULP DRIER Narrative [facility] - 08/24/2014 2:[address] Performed at [facility], [address] ??[phone] David Kat MD LAB_1 Performing Organization Address City/State/ZIP Code Phon e Number [facility] [phone] HEMOGRAM/PLTS/DIFF (08/24/2014 10:24 AM PULP DRIER) Analysis Performed At [facility] logist Time Signature WBC 8.2 4.0 - [...] [facility] Lymph 24 % [facility] [place] 7 % [facility] Eos 2 % [facility] Baso 1 % [facility] Neutrophil 5.4 1.8 - 7.7 [facility] Absolute k/ul LAB[facility]IES Lymph Absolute 2.0 1.0 - 4.8 [facility] k/ul [facility] [place] Absolute 0.6 0.1 - 0.7 [facility] k/ul [facility] Eos Absolute 0.2 0.0 - 0.5 [facility] k/ul [facility] Baso Absolute 0.1 0.0 - 0.2 [facility] k/ul [facility] Specimen Anatomical Collection Method Collection Time Receive d Time (Source) Location / / Volume Laterality 08/24/2014 10:24 08/24/2014 AM PULP DRIER 10:25 AM PULP DRIER Narrative [facility] - 08/24/2014 10:39 AM PULP DRIER Performed at [facility], [address] [place], [place] ??[address] David Kat MD LAB_1 Performing Organization Address City/State/ZIP Code Phon e Number [facility] [phone] documented in this encounter Visit Diagnoses Diagnosis Abdominal pain, generalized documented in this encounter Care Teams Outside Physical Damage Appraiser Relationship Specialty Start Date End Date Alisha Kimball MD PCP - General 07/08/05 [address] [place], [place] [phone] documented as of this encounter
--- OUTSIDE RECORDS SUMMARY | 2022-06-12 09:44 | XMS_ITS | Encounter Summary ---
:1955 Author Organization [employer] Address [address] [place] [address] Care Team Providers Name Role Phone Alisha Kimball MD Primary Care Provider Encounter Details Date Type Department Care Team Description 05/21/2014 Orders Only [facility] Alisha Kimball Hypercholes terolemia (Primary Dx); Rakesh Blevins MD Diabetes mellitus, type 2 [address] [place] [address] [place] [phone] [place], [place] [phone] Social History Tobacco Use Types Packs/Day Years [...] DIRECT LDL(IF NEEDED) (10/27/2014 9:03 AM CDT) [facility] Method Time Signature Hours Fasting 12 [...] - 10/29/2014 12:02 PM CDT [facility]formed at [facility], [address] [place] [address] ??[phone] Alisha Kimball MD LAB_1 Performing Organization Address [facility] e Number [facility] [phone] (ABNORMAL) HGB A1C (10/27/2014 9:03 AM CDT) [...] AM 5 9:04 CDT AM CDT Narrative [facility] - 10/29/2014 12:07 PM CDT Performed at [facility], [address] [place] [address] ??[phone] Alisha Kimball MD LAB_1 Performing Organization Address [facility] e Number [facility] [phone] documented in this encounter Visit Diagnoses Diagnosis Hypercholesterolemia - Primary Pure hypercholesterolemia Diabetes mellitus, type 2 (HRC) Type II or unspecified type diabetes dinora litus without mention of complication, not stated as uncontrolled Diabetes mellitus, type 2 (HRC) Type II or unspecified type diabetes dinora litus without mention of complication, not stated as uncontrolled Hypercholesterolemia Pure hypercholesterolemia documented in this encounter Care Teams Cartography Technician Relationship Specialty Start Date End Date Alisha Kimball MD PCP - General 07/08/05 [address] [place] [address] documented as of this encounter
--- OUTSIDE RECORDS SUMMARY | 2022-06-12 09:44 | XMS_ITS | Encounter Summary ---
:1955 Author Organization [employer] Address [address], [place] [address] Care Team Providers Name Role Phone Alisha Kimball MD Primary Care Provider Reason for Visit Reason Comments Refill Encounter Details Date Type Department Care Team Description 09/11/2014 Refill [facility] Alisha Kimball MD Refill 8450 [facility]. [address] [place] [address] [place], [place] [phone] (Wo rk) Social History Tobacco Use Types [...] two times a day. (changed) Powered by [employer], Reference: [id number], 09/11/2014 7:15:14 AM CDT, Pool: [place] REFILL RN ([id number]) documented in this encounter Plan of Treatment Not on filedocumented as of this encounter Visit Diagnoses Not on filedocumented in this encounter Care Teams Base Filler Relationship Specialty Start Date End Date Alisha Kimball MD PCP - General 07/08/05 [address] [place] [address] documented as of this encounter
--- OUTSIDE RECORDS SUMMARY | 2022-06-12 09:44 | XMS_ITS | Encounter Summary ---
:1955 Author Organization [facility] Address [address] [place] [address] Care Team Providers Name Role Phone Alisha Kimball MD Primary Care Provider Encounter Details Date Type Department Care Team Description 05/21/2014 Orders Only [facility] Diabetes mellitus, type [address] [place] [address] Social History Tobacco Use Types [...] AM Diabetes mellitus , Results for this BI REPORT DEVELOPER type 2 procedure are i n the results section. HGB A1C Routine 05/21/2014 7:33 AM Diabetes mellitus, Res ults for this BI REPORT DEVELOPER type 2 procedure are i n the results section. documented in this encounter Results CREATININE / GFR (05/21/2014 7:33 AM BI REPORT DEVELOPER) Analysis Performed At Patho logist Time Signature Creatinine 0.90 0.52 - [facility] 1.04 mg/dl [facility] GFR, Estimated >60 >60 [facility] ml/min/1.7 LAB[facility]ATORIES 3m2 GFR, Est., If >60 >60 [facility] Black ml/min/1.7 LABORATORIES 3m2 Specimen Anatomical Collection Method Collection Time Receive d Time (Source) Location / / Volume Laterality 05/21/2014 7:33 AM 4 7:34 BI REPORT DEVELOPER AM BI REPORT DEVELOPER Narrative [facility] - 05/21/2014 1:[address] [facility], [address] ??[phone] Alisha Kimball MD LAB_1 Performing Organization Address [facility] Phon e Number [facility] [phone] (ABNORMAL) HGB A1C (05/21/2014 7:33 AM BI REPORT DEVELOPER) P athologist Signature Hgb A1c 7.5 (H) [...] Volume Laterality 05/21/2014 7:33 AM 4 7:34 BI REPORT DEVELOPER AM BI REPORT DEVELOPER Narrative [facility] - 05/21/2014 1:[address] [facility], [address] [place] [address] ??[phone] Alisha Kimball MD LAB_1 Performing Organization Address [facility] Phon e Number [facility] [phone] documented in this encounter Visit Diagnoses Diagnosis Diabetes mellitus, type 2 (HRC) Type II or unspecified type diabetes dinora litus without mention of complication, not stated as uncontrolled documented in this encounter Care Teams Line Assembler Aircraft Relationship Specialty Start Date End Date Alisha Kimball MD PCP - General 07/08/05 [address] [place] [address] documented as of this encounter
--- OUTSIDE RECORDS SUMMARY | 2022-06-12 09:44 | XMS_ITS | Encounter Summary ---
:1955 Author Organization [employer] Address [address] [place] [address] Care Team Providers Name Role Phone Alisha Kimball MD Primary Care Provider Encounter Details Date Type Department Care Team Description 10/30/2013 Orders Only [facility] Diabetes mellitus, type 2; [address] Hypercholesterolemia; [place] [address] Hypertension; [phone] Screening for t hyroid disorder; Screening, anem [...] 10/30/2013 1:03 PM C DT Performed at [facility], [address] [place] [address] ??[phone] Alisha Kimball MD LAB_1 Performing Organization Address City/State/ZIP Code Phon e Number [facility] [phone] TSH, SENSITIVE with FT4, FT3 (if needed) (10/30/2013 7:37 AM CDT) athologist Signature TSH, with 1.465 0.300 - [facility] Reflex 5.000 LABORATORIES uIU/ml Specimen Anatomical Collection Method Collection Time Receive d Time (Source) Location / / Volume Laterality 10/30/2013 7:37 AM 4 7:39 CDT AM CDT Narrative [facility] - 10/30/2013 2:45 PM C DT Performed at [facility], [address] [place] [address] ??[phone] Alisha Kimball MD LAB_1 Performing Organization Address [facility]/ZIP Code Phon e Number [facility] [phone] SODIUM (10/30/2013 7:37 AM CDT) athologist Signature Sodium 140 135 - 145 [facility] mmol/L Specimen Anatomical Collection Method Collection Time Receive d Time (Source) Location / / Volume Laterality 10/30/2013 7:37 AM 4 7:39 CDT AM CDT Narrative [facility] - 10/30/2013 2:04 PM C DT Performed at [facility], [address] [place] [address] ??[phone] Alisha Kimball MD LAB_1 Performing Organization Address [facility] Phon e Number [facility] [phone] POTASSIUM (10/30/2013 7:37 AM CDT) athologist Signature Potassium 4.2 3.5 - 5.3 [facility] mmol/L Specimen Anatomical Collection Method Collection Time Receive d Time (Source) Location / / Volume Laterality 10/30/2013 7:37 AM 4 7:39 CDT AM CDT Narrative [facility] - 10/30/2013 2:04 PM C DT Performed at [facility], [address] [place] [address] ??[phone] Alisha Kimball MD LAB_1 Performing Organization Address City/[facility]/ZIP Code Phon e Number [facility] [phone] ALT (SGPT) (10/30/2013 7:37 AM CDT) athologist Signature ALT (SGPT) 52 0 - 69 U/L [facility] Specimen Anatomical Collection Method Collection Time Receive d Time (Source) Location / / Volume Laterality 10/30/2013 7:37 AM 4 7:39 CDT AM CDT Narrative [facility] - 10/30/2013 2:04 PM C DT Performed at [facility], [address] [place] [address] ??[phone] Alisha Kimball MD LAB_1 Performing Organization Address City/[facility] Code Phon e Number [facility] [phone] MICROALB/CREAT RATIO (10/30/2013 7:37 AM CDT) Patholo [...] 10/30/2013 1:21 PM C DT Performed at [facility], [address] [place] [address] ??[phone] Alisha Kimball MD LAB_1 Performing Organization Address City/[facility] Phon e Number [facility] [phone] CREATININE / GFR (10/30/2013 7:37 AM CDT) [...] 10/30/2013 2:04 PM C DT Performed at [facility], [address] [place] [address] ??[phone] Alisha Kimball MD LAB_1 Performing Organization Address City/[facility]/ZIP Code Phon e Number [facility] [phone] (ABNORMAL) LIPID PANEL AND DIRECT LDL(IF NEEDED) [...] PM C DT Performed at [facility], [address] [place] [address] ??[phone] Alisha Kimball MD LAB_1 Performing Organization Address [facility] Phon e Number [facility] [phone] (ABNORMAL) HGB A1C (10/30/2013 7:37 AM CDT) [...] 1:58 PM C DT Performed at [facility], [address] [place] [address] ??[address] Alisha Kimball MD LAB_1 Performing Organization Address City/[facility] Phon e Number [facility] [phone] documented in this encounter Visit Diagnoses Diagnosis Diabetes mellitus, type 2 (HRC) Type II or unspecified type diabetes dinora litus without mention of complication, not stated as uncontrolled Hypercholesterolemia Pure hypercholesterolemia Hypertension (HRC) Unspecified essential hypertension Screening for thyroid disorder Screening, anemia, deficiency, iron Screening for iron deficiency anemia documented in this encounter Care Teams Wire Frame Maker Relationship Specialty Start Date End Date Alisha Kimball MD PCP - General 07/08/05 [address] [place] [address] documented as of this encounter
--- OUTSIDE RECORDS SUMMARY | 2022-06-12 09:44 | XMS_ITS | Encounter Summary ---
:1955 Author Organization [facility] Address [address] [place] [address] Care Team Providers Name Role Phone Alisha Kimball MD Primary Care Provider Reason for Visit Reason Onset Date Comments Disease Registry 10/24/2013 Encounter Details Date Type Department Care Team Description [facility] 8450 [facility]. [address] [place] [address] [place] [address] [phone] (Wo rk) Social History Tobacco Use Types [...] on filedocumented in this encounter Care Teams Ceo & Board Director Relationship Specialty Start Date End Date Alisha Kimball MD PCP - General 07/08/05 [address] [place], [place] [phone] documented as of this encounter
--- OUTSIDE RECORDS SUMMARY | 2022-06-12 09:44 | XMS_ITS | Encounter Summary ---
:1955 Author Organization [facility] Address [address] [place] [address] Care Team Providers Name Role Phone Alisha Kimball MD Primary Care Provider Reason for Visit Reason Comments MEDICATION THERAPY MANAGEMENT SEGIP Encounter Details Date Type Department Care Team Description 05/21/2014 Office Visit [facility] Tesha Maxwell, Diabetes mellitus, type 2 (P rimary Dx); [address] PharmD Hypertension; [place] [address] [address] Hypercholesterolemia [phone] [place], [place] [phone] Social History Tobacco Use Types Packs/Day Years Used Date Smoking Tobacco: Never Smokeless Tobacco: Never Alcohol Use Standard Drinks/Week Comments No 0 (1 standard drink = 0.6 oz pure alcoho l) Sex Assigned at Date Recorded Not on file documented as of this encounter Last Filed Vital Signs Vital Sign Reading Time Taken Comments Blood Pressure 126/89 05/21/2014 10:42 AM FINISH SAW OPERATOR Pulse 83 05/21/2014 10:42 AM FINISH SAW OPERATOR Temperature - - Respiratory Rate - [...] Maxwell PharmD [employer] on Wednesday & Wednesday: [phone] [facility] on & Wednesday: [phone] SH SAW OPERATOR documented in this encounter Progress Notes Tesha Maxwell PharmD - 05/21/2014 10:23 AM CST S Loc Velasco was referred to Medication Therapy Management Services by [facility] for diabetes management/education. Melia presents today for [...] PharmD Clinical Pharmacist Medication Therapy Management Program SH SAW OPERATOR documented in this encounter Plan of Treatment Not on filedocumented as of this encounter Visit Diagnoses Diagnosis Diabetes mellitus, type 2 (HRC) - Primar y Type II or unspecified type diabetes dinora litus without mention of complication, not stated as uncontrolled Hypertension (HRC) Unspecified essential hypertension Hypercholesterolemia Pure hypercholesterolemia documented in this encounter Care Teams Clam Treader Relationship Specialty Start Date End Date Alisha Kimball MD PCP - General 07/08/05 [address] [place] [address] documented as of this encounter
--- OUTSIDE RECORDS SUMMARY | 2022-06-12 09:44 | XMS_ITS | Encounter Summary ---
:1955 Author Organization [facility] Address [address] [place] [address] Care Team Providers Name Role Phone Alisha Kimball MD Primary Care Provider Reason for Visit Reason Comments LAB RESULTS A1C Encounter Details Date Type Department Care Team Description 04/19/2014 Telephone [facility] Alisha Steinberg MD LAB RESULTS (A1C) [address] [place] [address] [place], [place] [phone] (Wo rk) Social History Tobacco Use Types [...] morning.A1C in 4-6 weeks. Please also offer job setter honing and diabetes education visits. Thanks! Alisha Kimball MD documented in this encounter Plan of Treatment Not on filedocumented as of this encounter Visit Diagnoses Not on filedocumented in this encounter Care Teams Sticker Hand Relationship Specialty Start Date End Date Alisha Kimball MD PCP - General 07/08/[address] [place] [address] documented as of this encounter
--- OUTSIDE RECORDS SUMMARY | 2022-06-12 09:44 | XMS_ITS | Encounter Summary ---
:1955 Author Organization [facility] Address [address] [place] [address] Care Team Providers Name Role Phone Alisha Kimball MD Primary Care Provider Encounter Details Date Type Department Care Team Description 11/01/2013 Orders Only [facility] Claims MD [employer] Contact Bill [address] [place] [address] Mailstop [id number] [phone] (Wo rk) Social History Tobacco Use Types [...] filedocumented in this encounter Care Teams Forging Roll Operator Relationship Specialty Start Date End Date Alisha Kimball MD PCP - General 07/08/[address] [place], [place] [phone] documented as of this encounter
--- OUTSIDE RECORDS SUMMARY | 2022-06-12 09:44 | XMS_ITS | Encounter Summary ---
:1955 Author Organization [facility] Address [address] [place] [address] Care Team Providers Name Role Phone Alisha Kimball MD Primary Care Provider Reason for Visit Procedure/Equipment (Routine) - Incomplete Specialty Diagnoses / Procedures Referred By Contact Refer red To Contact Diagnoses Encounter for screening mammogram for malignant neoplasm of breast Alisha Kimball MD Procedures BILAT Mammogram screening [address] [place] [address] Referral ID Status Reason Start Date Expiration Date Visits V isits Requested Authorized [id number] Incomplete 10/30/2013 1 1 Encounter Details Date Type Department Care Team Description 11/01/2013 Imaging [facility] Enco unter for screening Mammography mammogram for malignant [address] [place] [address] Social History Tobacco Use Types [...] mammogram documented in this encounter Care Teams Neon Tube Pumper Relationship Specialty Start Date End Date Alisha Kimball MD PCP - General 07/08/05 [address] [place] [address] documented as of this encounter
--- OUTSIDE RECORDS SUMMARY | 2022-06-12 09:44 | XMS_ITS | Encounter Summary ---
:1955 Author Organization [facility] Address [address] [address] Care Team Providers Name Role Phone Alisha Kimball MD Primary Care Provider Reason for Referral Procedure/Equipment (Routine) - Incomplete Specialty Diagnoses / Procedures Referred By Contact Refer red To Contact Diagnoses Encounter for screening mammogram for malignant neoplasm of breast Alisha Kimball MD Procedures BILAT Mammogram screening [address] [place] [address] Referral ID Status Reason Start Date Expiration Date Visits V isits Requested Authorized [id number] Incomplete 10/30/2013 1 1 Reason for Visit Reason Comments ROUTINE HEALTH MAINTENANCE Encounter Details Date Type Department Care Team Description 10/30/2013 Office Visit [facility] Alisha Kimball, [facility] (Primary Dx); Practice MD Encounter for screening mammogram for ma lignant neoplasm of breast [address] [place] [address] [place] [address] [phone] Social History Tobacco Use Types Packs/Day Years [...] mammogram documented in this encounter Care Teams Pricer Relationship Specialty Start Date End Date Alisha Kimball MD PCP - General 07/08/05 [address] [place] [address] documented as of this encounter
--- OUTSIDE RECORDS SUMMARY | 2022-06-12 09:44 | XMS_ITS | Encounter Summary ---
:1955 Author Organization [facility] Address [address] [place] [address] Care Team Providers Name Role Phone Alisha Kimball MD Primary Care Provider Reason for Visit Procedure/Equipment (Routine) - Incomplete Specialty Diagnoses / Procedures Referred By Contact Refer red To Contact Procedures David Kat MD US PELVIS COMPLETE W IVT [address] ([facility] [place] [place] [address] Referral ID Status Reason Start Date Expiration Date Visits V isits Requested Authorized [id number] Incomplete 08/24/2014 1 1 Encounter Details Date Type Department Care Team Description 08/24/2014 Imaging [facility] Ul trasound David Kat MD [address] [place] [address] Social History Tobacco Use Types Packs/Day [...] PM Res ults for this W EV REAL ESTATE SITE ANALYST procedure are i n the results section. documented in this encounter Results US PELVIS COMPLETE W IVT (RH/HSC) (08/24/2014 3:20 PM REAL ESTATE SITE ANALYST) Anatomical Region Laterality Modality Pelvis Ultrasound Specimen (Source) Anatomical Collection Method Collection Time Re ceived Time Location / / Volume Laterality 08/24/2014 3:20 PM REAL ESTATE SITE ANALYST Narrative 08/24/2014 4:34 PM REAL ESTATE SITE ANALYST US PELVIS COMPLETE W/IVT (UTERUS/OVARIES) 08/24/2014 3:20 [...] Nonvisualization of the ovaries. David Kat MD [facility] documented in this encounter Visit Diagnoses Not on filedocumented in this encounter Care Teams Freight Rate Clerk Relationship Specialty Start Date End Date Alisha Kimball MD PCP - General 07/08/05 [address] [place] [address] documented as of this encounter
--- OUTSIDE RECORDS SUMMARY | 2022-06-12 09:44 | XMS_ITS | Encounter Summary ---
:1955 Author Organization [facility] Address [address] [place] [address] Care Team Providers Name Role Phone Alisha Kimball MD Primary Care Provider Reason for Referral Procedure/Equipment (Routine) - Incomplete Specialty Diagnoses / Procedures Referred By Contact Refer red To Contact Procedures David Kat MD US PELVIS COMPLETE W IVT [address] ([facility]) [place] [address] Referral ID Status Reason Start Date Expiration Date Visits V isits Requested Authorized [id number] Incomplete 08/24/2014 1 1 TMENT COORDINATOR Reason for Visit Reason Comments ABDOMINAL PAIN pain in lt overy area, hx hy sterectomy, mother had cervical cancer Encounter Details Date Type Department Care Team Description 08/24/2014 Office Visit [facility] David Kat Abdominal pa in, generalized (Primary Dx); Rakesh Lunsford MD Pelvic pain in female; [address] Abdominal bloating [place], [place] [phone] Social History Tobacco Use Types Packs/Day Years Used Date Smoking Tobacco: Never Smokeless Tobacco: Never Alcohol Use Standard Drinks/Week Comments No 0 (1 standard drink = 0.6 oz pure alcoho l) Sex Assigned at Date Recorded Not on file documented as of this encounter Last Filed Vital Signs Vital Sign Reading Time Taken Comments Blood Pressure 133/88 08/24/2014 9:35 AM APARTMENT COORDINATOR Pulse 78 08/24/2014 9:35 AM APARTMENT COORDINATOR Temperature 36.1 ??C (97 ??F) 08/24/2014 9:35 AM APARTMENT COORDINATOR Respiratory Rate 14 08/24/2014 9:35 AM APARTMENT COORDINATOR Oxygen Saturation 96% 08/24/2014 9:35 AM APARTMENT COORDINATOR Inhaled Oxygen Concentration - - Weight 77.1 kg (170 lb) 08/24/2014 9:35 AM APARTMENT COORDINATOR Height 162.6 cm (5' 4) 08/24/2014 9:35 AM APARTMENT COORDINATOR Body Mass Index 29.18 08/24/2014 9:35 AM APARTMENT COORDINATOR documented in this encounter Patient Instructions Patient [...] Where can you learn more? Go to [email or web address] and enter E907 in the search box. Current as of: December 06, 2013 Content Version: 10.3 ?? [phone] Kasenna. TMENT COORDINATOR documented in this encounter Progress Notes David [...] No cervix present. Right adnexal tenderness (Sabina, FAMILY PRACTITIONER present). EXT: No C/C/E. SKIN: Warm, dry. No apparent rashes or lesions. ASSESSMENT/PLAN: 1) Abdominal/pelvic pain - Check pelvic and abdominal US. Check lab work (See EPIC orders). Follow up in 2-[address] abdomen recommended, patient declined at this time. David Kat MD 08/24/2014, 9:58 AM TMENT COORDINATOR documented in this encounter Plan of Treatment Not on filedocumented as of this encounter Results US PELVIS COMPLETE W IVT (RH/HSC) (08/24/2014 3:20 PM APARTMENT COORDINATOR) Anatomical Region Laterality Modality Pelvis Ultrasound Specimen (Source) Anatomical Collection Method Collection Time Re ceived Time Location / / Volume Laterality 08/24/2014 3:20 PM APARTMENT COORDINATOR Narrative 08/24/2014 4:34 PM APARTMENT COORDINATOR US PELVIS COMPLETE W/IVT (UTERUS/OVARIES) 08/24/2014 3:20 [...] Nonvisualization of the ovaries. David Kat MD [facility] H. PYLORI IGG (08/24/2014 10:24 AM APARTMENT COORDINATOR) [facility] gist Method Time Signature H. pylori IgG Negative NEG [facility] Specimen Anatomical Collection Method Collection Time Receive d Time (Source) Location / / Volume Laterality 08/24/2014 10:24 08/24/2014 AM APARTMENT COORDINATOR 10:25 AM APARTMENT COORDINATOR Narrative [facility] - 08/27/2014 2:[address] Performed at [facility], [address] [place] [phone] David Kat MD LAB_1 Performing Organization Address City/State/ZIP Code Phon e Number [facility] [phone] URINE CULTURE (08/24/2014 10:24 AM APARTMENT COORDINATOR) Component Value Ref Test Analysis Performed At [facility] Method Time Signature Specimen Urine [facility] Special Unspecified [facility] Culture No Growth [facility] After 1 Day [facility] Report Status Final [facility] 08/25/2014 [facility] Specimen Anatomical Collection Method Collection Time Receive d Time (Source) Location / / Volume Laterality 08/24/2014 10:24 08/24/2014 AM APARTMENT COORDINATOR 10:25 AM APARTMENT COORDINATOR Narrative [facility] - 08/25/2014 1:[address] Performed at [facility] , [address] [place] [address] David Kat MD LAB_1 Performing Organization Address City/[facility] Phon e Number [facility] [phone] (ABNORMAL) UA WITH MICRO (08/24/2014 10:24 AM APARTMENT COORDINATOR) [facility] Forrst Method Time Signature Urine Color Yellow [facility] [...] / Volume Laterality 08/24/2014 10:24 08/24/2014 AM APARTMENT COORDINATOR 10:25 AM APARTMENT COORDINATOR Narrative [facility] - 08/24/2014 10:37 AM APARTMENT COORDINATOR Performed at [facility], [address] [facility], [place], [place] ??[address] David Kat MD LAB_1 Performing Organization Address City/[facility]/ZIP [facility] Phon e Number [facility] [phone] (ABNORMAL) BASIC METABOLIC PANEL (08/24/2014 10:24 AM APARTMENT COORDINATOR) Patholo gist Method Time Signature Sodium 143 [...] / Volume Laterality 08/24/2014 10:24 08/24/2014 AM APARTMENT COORDINATOR 10:25 AM APARTMENT COORDINATOR Narrative [facility] - 08/24/2014 2:[address] Performed at [facility], [address] [place] [address] ??[phone] David Kat MD LAB_1 Performing Organization Address [facility] Phon e Number [facility] [phone] (ABNORMAL) C-REACTIVE PROTEIN (08/24/2014 10:24 AM APARTMENT COORDINATOR) [facility] Forrst Method Time Signature C-Reactive 5.7 (H) 0.0 - 0.9 [facility] Protein mg/dl [facility] Comment: Note: results are expressed in mg/dL. Specimen Anatomical Collection Method Collection Time Receive d Time (Source) Location / / Volume Laterality 08/24/2014 10:24 08/24/2014 AM APARTMENT COORDINATOR 10:25 AM APARTMENT COORDINATOR Narrative [facility] - 08/24/2014 2:[address] Performed at [facility], [address] [place] [address] ??[phone] David Kat MD LAB_1 Performing Organization Address [facility] Phon e Number [facility] [phone] HEMOGRAM/PLTS/DIFF (08/24/2014 10:24 AM APARTMENT COORDINATOR) Analysis Performed At Patho logist Time Signature [...] [facility] Lymph 24 % [facility] Mcduffie 7 % [facility] Eos 2 % [facility] Baso 1 % [facility] Neutrophil 5.4 1.8 - 7.7 [facility] Absolute k/ul [facility] Lymph Absolute 2.0 1.0 - 4.8 [facility] k/ul [facility] Mcduffie Absolute 0.6 0.1 - 0.7 [facility] k/ul [facility] Eos Absolute 0.2 0.0 - 0.5 [facility] k/ul [facility] Baso Absolute 0.1 0.0 - 0.2 [facility] k/ul [facility] Specimen Anatomical Collection Method Collection Time Receive d Time (Source) Location / / Volume Laterality 08/24/2014 10:24 08/24/2014 AM APARTMENT COORDINATOR 10:25 AM APARTMENT COORDINATOR Narrative [facility] - 08/24/2014 10:39 AM APARTMENT COORDINATOR Performed at [facility], [address] [place], [place] ??[address] David Kat MD LAB_1 Performing Organization Address City/State/ZIP Code Phon e Number [facility] [phone] documented in this encounter Visit Diagnoses Diagnosis Abdominal pain, generalized - Primary Pelvic pain in female Unspecified symptom associated with fema le genital organs Abdominal bloating Flatulence, eructation, and gas pain Abdominal pain, generalized documented in this encounter Care Teams Potato Spotter Relationship Specialty Start Date End Date Alisha Kimball MD PCP - General 07/08/05 [address] [place] [address] documented as of this encounter
--- OUTSIDE RECORDS SUMMARY | 2022-06-12 09:44 | XMS_ITS | Encounter Summary ---
:1955 Author Organization [facility] Address [address] [place] [address] Care Team Providers Name Role Phone Alisha Kimball MD Primary Care Provider Encounter Details Date Type Department Care Team Description 04/16/2014 Orders Only [facility] Diabetes mellitus, type [address] [place] [address] Social History Tobacco Use Types [...] CDT Performed at [facility], [address] [place] [phone] Alisha Kimball MD LAB_1 Performing Organization Address City/State/ZIP Code Phon e Number [facility] [phone] documented in this encounter Visit Diagnoses Diagnosis Diabetes mellitus, type 2 (HRC) Type II or unspecified type diabetes dinora litus without mention of complication, not stated as uncontrolled documented in this encounter Care Teams Registered Vascular Technologist (Rvt) Relationship Specialty Start Date End Date Alisha Kimball MD PCP - General 07/08/05 [address] [place] [address] documented as of this encounter
--- OUTSIDE RECORDS SUMMARY | 2022-06-12 09:44 | XMS_ITS | Encounter Summary ---
:1955 Author Organization [facility] Address [address] [place] [address] Care Team Providers Name Role Phone Alisha Kimball MD Primary Care Provider Reason for Visit Reason Onset Date Comments ERRONEOUS ENTRY 04/17/2014 Encounter Details Date Type Department Care Team Description 04/17/2014 Telephone [facility] maxi Alisha Kimball MD ERRONEOUS ENTRY [address] [facility]. [address] [place] [address] [place] [address] [phone] (Wo rk) Social History Tobacco Use Types [...] on filedocumented in this encounter Care Teams Group Burner Machine Relationship Specialty Start Date End Date Alisha Kimball MD PCP - General 07/08/05 [address] [place], [place] [phone] documented as of this encounter
--- OUTSIDE RECORDS SUMMARY | 2022-06-12 09:44 | XMS_ITS | Encounter Summary ---
:1955 Author Organization [facility] Address [address] [place] [address] Care Team Providers Name Role Phone Alisha Kimball MD Primary Care Provider Reason for Visit Reason Comments ROUTINE HEALTH MAINTENANCE Diabetic Foot Assessment Health [facility] Declined hiv and hep c Encounter Details Date Type Department Care Team Description 11/05/[address] [facility] Alisha Kimball, [facility] (Primary Dx); Practice MD Diabetes mellitus, type 2 (HRC); [address] [place] [address] [place], [place] [phone] Social History Tobacco Use Types Packs/Day Years [...] a Lab Onlyappointment online or by calling [phone]. For blood pressure: Hold the amlodipine for [...] Where can you learn more? Go to [employer] and enter Y074 in the search box. Current as of: October 26, 2013 Content Version: 10.3 ?? [phone] [employer], [employer]. documented in this encounter Progress Notes Alisha [...] Results MICROALB/CREAT RATIO (11/05/2014 8:58 AM CDT) [facility] gist Method Time Signature Albumin, <0.5 mg/dl [...] 11/05/2014 1:39 PM C DT Performed at [facility], [address] [place] [phone] Alisha Kimball MD LAB_1 Performing Organization Address City/State/ZIP Code Phon e Number [facility] [phone] documented in this encounter Visit Diagnoses Diagnosis [...] uncontrolled documented in this encounter Care Teams Diploma Maker Relationship Specialty Start Date End Date Alisha Kimball MD PCP - General 07/08/05 [address] [place] [address] documented as of this encounter
--- OUTSIDE RECORDS SUMMARY | 2022-06-12 09:44 | XMS_ITS | Encounter Summary ---
:1955 Author Organization [facility] Address [address], [place] [address] Care Team Providers Name Role Phone Alisha Kimball MD Primary Care Provider Reason for Visit Reason Onset Date Comments Medication Questions 06/02/2014 Encounter Details Date Type Department Care Team Description 06/02/2014 Telephone [facility] Alisha Kimball MD Medication Questions Practice [address] [place] [address] [place], [place] [phone] Social History Tobacco Use Types Packs/Day Years Used Date Smoking Tobacco: Never Smokeless Tobacco: Never Alcohol Use Standard Drinks/Week Comments No 0 (1 standard drink = 0.6 oz pure alcoho l) Sex Assigned at Date Recorded Not on file documented as of this encounter Nursing Notes Valeria Villa - 06/12/2014 9:23 AM CST Lm Encounter closed RIBUTION OPERATION SUPERVISOR Alisha Kimball MD - 06/05/2014 5:28 PM CST Refill sent. Alisha Kimball MD RIBUTION OPERATION SUPERVISOR Tara Ricketts - 06/05/2014 3:59 PM CST [...] with the metformin? Thanks! Alisha Kimball MD RIBUTION OPERATION SUPERVISOR Erlinda Dickerson RN - 06/04/2014 8:08 AM CST Last Visit: 10/30/13 See below Erlinda Dickerson RN RIBUTION OPERATION SUPERVISOR Jodi Dick - 06/02/2014 12:55 PM CST Patient states metformin dose has been increased. Pharmacy would need prescription to reflect new dose. Please review RIBUTION OPERATION SUPERVISOR documented in this encounter Plan of Treatment Not on filedocumented as of this encounter Visit Diagnoses Diagnosis Diabetes mellitus, type 2 (HRC) - Primar y Type II or unspecified type diabetes dinora litus without mention of complication, not stated as uncontrolled documented in this encounter Care Teams Merchandise Pickup/Receiving Associate Relationship Specialty Start Date End Date Alisha Kimball MD PCP - General 07/08/05 [address] [place] [address] documented as of this encounter
--- OUTSIDE RECORDS SUMMARY | 2022-06-12 09:44 | XMS_ITS | Encounter Summary ---
:1955 Author Organization [employer] Address [address] [place] [address] Care Team Providers Name Role Phone Alisha Kimball MD Primary Care Provider Reason for Visit Reason Onset Date Comments LAB TESTS, NOS 05/17/2014 Encounter Details Date Type Department Care Team Description 05/17/2014 Telephone [facility] Alisha Steinberg MD LAB TESTS, NOS [address] [place] [address] [place] [address] [phone] (Wo rk) Social History Tobacco Use Types Packs/Day Years Used Date Smoking Tobacco: Never Smokeless Tobacco: Never Alcohol Use Standard Drinks/Week Comments No 0 (1 standard drink = 0.6 oz pure alcoho l) Sex Assigned at Date Recorded Not on file documented as of this encounter Nursing Notes Alisha Kimball MD - 05/18/2014 2:54 PM CST [place]. See orders. Alisha Kimball MD S REMOVER [facility] - 05/17/2014 7:04 PM CST Patient on Lab Only Visit Schedule, no lab orders found in patient's chart. Patient is coming in tiffanie A1C. Please review and enter Future Lab Orders or notify the patient that lab work is not needed. Lab Only Visit scheduled for: 05/21/14. After placing Future Orders, please route this Telephone Encounter to the following pool: [place] LAB POOL. Thank you S REMOVER documented in this encounter Plan of Treatment Not on filedocumented as of this encounter Results CREATININE / GFR (05/21/2014 7:33 AM PARTS REMOVER) Analysis Performed At Patho logist Time Signature Creatinine 0.90 0.52 - [facility] 1.04 mg/dl [facility] GFR, Estimated >60 >60 [facility] ml/min/1.7 LAB[facility]ATORIES 3m2 GFR, Est., If >60 >60 [facility] Black ml/min/1.7 LABORATORIES 3m2 Specimen Anatomical Collection Method Collection Time Receive d Time (Source) Location / / Volume Laterality 05/21/2014 7:33 AM 4 7:34 PARTS REMOVER AM PARTS REMOVER Narrative [facility] - 05/21/2014 1:[address] Performed at [facility], [address] [place] [address] ??[id number] Alisha Kimball MD LAB_1 Performing Organization Address [facility] Phon e Number [facility] [phone] (ABNORMAL) HGB A1C (05/21/2014 7:33 AM PARTS REMOVER) P athologist Signature Hgb A1c 7.5 (H) [...] Volume Laterality 05/21/2014 7:33 AM 4 7:34 PARTS REMOVER AM PARTS REMOVER Narrative [facility] - 05/21/2014 1:[address] Performed at [facility], [address] [place] [address] ??[id number] Alisha Kimball MD LAB_1 Performing Organization Address City/State/ZIP Code Phon e Number [facility] [phone] documented in this encounter Visit Diagnoses Diagnosis Diabetes mellitus, type 2 (HRC) - Primar y Type II or unspecified type diabetes dinora litus without mention of complication, not stated as uncontrolled Diabetes mellitus, type 2 (HRC) Type II or unspecified type diabetes dinora litus without mention of complication, not stated as uncontrolled documented in this encounter Care Teams Sky Diver Relationship Specialty Start Date End Date Alisha Kimball MD PCP - General 07/08/05 [address] [place] [address] documented as of this encounter
--- OUTSIDE RECORDS SUMMARY | 2022-06-12 09:44 | XMS_ITS | Encounter Summary ---
:1955 Author Organization [employer] Address [address] [place] [address] Care Team Providers Name Role Phone Alisha Kimball MD Primary Care Provider Encounter Details Date Type Department Care Team Description 10/27/2014 Orders Only [place] Diabetes mellit us, type 2 ([facility]); Laboratory Hypercholesterolemia [address] [place], [place] [id number] Social History Tobacco Use Types Packs/Day Years [...] LIPID PANEL AND Routine 10/27/2014 9:03 Hypercholesterolemia Results for this DIRECT LDL(IF AM CDT procedure are in NEEDED) the results section. HGB A1C Routine 10/27/2014 9:03 Diabetes mellitus, type 2 Results for this AM CDT (HRC) procedure are i n the results section. documented in this encounter Results (ABNORMAL) LIPID PANEL AND DIRECT LDL(IF NEEDED) (10/27/2014 9:03 AM CDT) [facility] gist Method Time Signature Hours Fasting [...] - 10/29/2014 12:02 PM CDT Performed at [facility], [address] [place] [address] ??[id number] Alisha Kimball MD LAB_1 Performing Organization Address [facility] Phon e Number [facility] [phone] (ABNORMAL) HGB A1C (10/27/2014 9:03 AM CDT) [...] AM 5 9:04 CDT AM CDT Narrative [facility] - 10/29/2014 12:07 PM CDT Performed at [facility], [address] [place] [address] ??[address] Alisha Kimball MD LAB_1 Performing Organization Address [facility] Phon e Number [facility] [phone] documented in this encounter Visit Diagnoses Diagnosis Diabetes mellitus, type 2 (HRC) Type II or unspecified type diabetes dinora litus without mention of complication, not stated as uncontrolled Hypercholesterolemia Pure hypercholesterolemia documented in this encounter Care Teams Double Reamer Operator Relationship Specialty Start Date End Date Alisha Kimball MD PCP - General 07/08/05 [address] [place] [address] documented as of this encounter
--- OUTSIDE RECORDS SUMMARY | 2022-06-12 09:45 | XMS_ITS | Encounter Summary ---
:1955 Author Organization [email or web address] Address [address] [place] [address] Care Team Providers Name Role Phone Alisha Kimball MD Primary Care Provider Reason for Visit Reason Onset Date Comments LAB TESTS, NOS 09/22/2013 Encounter Details Date Type Department Care Team Description 09/22/2013 Telephone [facility] maxi Alisha Kimball MD LAB TESTS, NOS [address] [place] [address] [place] [address] [phone] (Wo rk) Social History Tobacco Use Types [...] this Telephone Encounter to the following pool: [place] LAB POOL. Thank you documented in this [...] 10/30/2013 1:03 PM C DT Performed at [facility], [address] [place] [address] ??[address] Alisha Kimball MD LAB_1 Performing Organization Address City/State/ZIP Code Phon e Number [facility] [phone] TSH, SENSITIVE with FT4, FT3 (if needed) (10/30/2013 7:37 AM CDT) athologist Signature TSH, with 1.465 0.300 - [facility] Reflex 5.000 LAB[facility]ATORIES uIU/ml Specimen Anatomical Collection Method Collection Time Receive d Time (Source) Location / / Volume Laterality 10/30/2013 7:37 AM 4 7:39 CDT AM CDT Narrative [facility] - 10/30/2013 2:45 PM C DT Performed at [facility], [address] [place] [address] ??[address] Alisha Kimball MD LAB_1 Performing Organization Address City/State/ZIP Code Phon e Number [facility] [phone] SODIUM (10/30/2013 7:37 AM CDT) P athologist Signature Sodium 140 135 - 145 [facility] mmol/L Specimen Anatomical Collection Method Collection Time Receive d Time (Source) Location / / Volume Laterality 10/30/2013 7:37 AM 4 7:39 CDT AM CDT Narrative [facility] - 10/30/2013 2:04 PM C DT Performed at [facility], [address] [place] [address] ??[id number] Alisha Kimball MD LAB_1 Performing Organization Address City/[facility]/ZIP Code Phon e Number [facility] [phone] POTASSIUM (10/30/2013 7:37 AM CDT) athologist Signature Potassium 4.2 3.5 - 5.3 [facility] mmol/L Specimen Anatomical Collection Method Collection Time Receive d Time (Source) Location / / Volume Laterality 10/30/2013 7:37 AM 4 7:39 CDT AM CDT Narrative [facility] - 10/30/2013 2:04 PM C DT Performed at [facility], [address] [place] [address] ??[address] Alisha Kimball MD LAB_1 Performing Organization Address City/[facility]/ZIP Code Phon e Number [facility] [phone] ALT (SGPT) (10/30/2013 7:37 AM CDT) athologist Signature ALT (SGPT) 52 0 - 69 U/L [facility] Specimen Anatomical Collection Method Collection Time Receive d Time (Source) Location / / Volume Laterality 10/30/2013 7:37 AM 4 7:39 CDT AM CDT Narrative [facility] - 10/30/2013 2:04 PM C DT Performed at [facility], [address] [place] [address] ??[address] Alisha Kimball MD LAB_1 Performing Organization Address City/State/ZIP Code Phon e Number [facility] [phone] MICROALB/CREAT RATIO (10/30/2013 7:37 AM CDT) [facility] Method Time Signature Albumin, 0.6 [...] 10/30/2013 1:21 PM C DT Performed at [facility], [address] [place] [address] ??[id number] Alisha Kimball MD LAB_1 Performing Organization Address [facility]/ZIP Code Phon e Number [facility] [phone] CREATININE / GFR (10/30/2013 7:37 AM CDT) [facility] Time Signature Creatinine 0.73 0.52 - [...] 10/30/2013 2:04 PM C DT Performed at Counts include 234 beds at the [facility], [address] [place] [address] ??[address] Alisha Kimball MD LAB_1 Performing Organization Address City/State/ZIP Code Phon e Number [facility] [phone] (ABNORMAL) LIPID PANEL AND DIRECT LDL(IF NEEDED) (10/30/2013 7:37 AM CDT) [facility] Method Time Signature Hours Fasting [...] 10/30/2013 2:04 PM C DT Performed at [facility], [address] [place] [address] ??[address] Alisha Kimball MD LAB_1 Performing Organization Address [facility] Phon e Number [facility] [phone] (ABNORMAL) HGB A1C (10/30/2013 7:37 AM CDT) [...] 10/30/2013 1:58 PM C DT Performed at [facility], [address] [place] [address] ??[address] Alisha Kimball MD LAB_1 Performing Organization Address City/[facility] Phon e Number [facility] [phone] documented in this encounter Visit Diagnoses Diagnosis [...] anemia documented in this encounter Care Teams Turning And Beading Machine Operator Relationship Specialty Start Date End Date Alisha Kimball MD PCP - General 07/08/05 [address] [place] [address] documented as of this encounter
--- OUTSIDE RECORDS SUMMARY | 2022-06-12 09:45 | XMS_ITS | Encounter Summary ---
:1955 Author Organization [employer] Address [address] [place] [address] Care Team Providers Name Role Phone Alisha Kimball MD Primary Care Provider Reason for Visit Reason Onset Date Comments LAB TESTS, NOS 10/26/2011 Encounter Details Date Type Department Care Team Description 10/26/2011 Telephone [facility] Alisha Steinberg MD LAB TESTS, NOS [address] [place] [address] [place] [address] [phone] (Wo rk) Social History Tobacco Use Types [...] we do not have the appropriate sample. [facility]. documented in this encounter Plan of Treatment Not on filedocumented as of this encounter Visit Diagnoses Not on filedocumented in this encounter Care Teams Production Or Plant Engineer Relationship Specialty Start Date End Date Alisha Kimball MD PCP - General 07/08/05 [address] [place] [address] documented as of this encounter
--- OUTSIDE RECORDS SUMMARY | 2022-06-12 09:45 | XMS_ITS | Encounter Summary ---
:1955 Author Organization [employer] Address [address] [place] [address] Care Team Providers Name Role Phone Alisha Kimball MD Primary Care Provider Reason for Visit Reason Comments LAB RESULTS A1C, lipids Encounter Details Date Type Department Care Team Description 12/16/2012 Telephone [facility] Alisha Kimball MD LAB RESULTS (A1C, Practice [address] lipids) [address] [place] [address] [place] [address] [phone] Social History Tobacco Use Types Packs/Day Years [...] - 01/13/2013 12:39 PM CDT Performed at [facility], [address], [place], [place] ??[address] Alisha Kimball MD LAB_1 Performing Organization Address City/State/ZIP Code Phon e Number [facility] [phone] documented in this encounter Visit Diagnoses Diagnosis Diabetes mellitus type II (HRC) - Primar y Type II or unspecified type diabetes dinora litus without mention of complication, not stated as uncontrolled Diabetes mellitus type II (HRC) Type II or unspecified type diabetes dinora litus without mention of complication, not stated as uncontrolled documented in this encounter Care Teams Sales Operations Analyst Relationship Specialty Start Date End Date Alisha Kimball MD PCP - General 07/08/05 [address] [place] [address] documented as of this encounter
--- OUTSIDE RECORDS SUMMARY | 2022-06-12 09:45 | XMS_ITS | Encounter Summary ---
:1955 Author Organization [employer] Address [address] [address] Care Team Providers Name Role Phone Alisha Kimball MD Primary Care Provider Reason for Visit Reason Comments FOLLOW-UP,DIABETES Encounter Details Date Type Department Care Team Description 10/31/2012 Telephone [facility] maxi Alisha Kimball MD FOLLOW-UP,DIABETES [address] [place] [address] [place] [address] [phone] (Wo rk) Social History Tobacco Use Types Packs/Day Years Used Date Smoking Tobacco: Never Smokeless Tobacco: Never Alcohol Use Standard Drinks/Week Comments No 0 (1 standard drink = 0.6 oz pure alcoho l) Sex Assigned at Date Recorded Not on file documented as of this encounter Nursing Notes Francesca Coh CMA - 11/14/2012 2:22 PM CDT Patient [...] on filedocumented in this encounter Care Teams Clay Pigeon Loader Relationship Specialty Start Date End Date Alisha Kimball MD PCP - General 07/08/05 [address] [place] [address] documented as of this encounter
--- OUTSIDE RECORDS SUMMARY | 2022-06-12 09:45 | XMS_ITS | Encounter Summary ---
:1955 Author Organization [employer] Address [address] [place] [address] Care Team Providers Name Role Phone Alisha Kimball MD Primary Care Provider Reason for Visit Reason Onset Date Comments Pharmacy 12/16/2012 diabetes Encounter Details Date Type Department Care Team Description 12/16/2012 Pharmacy [facility], Pharmacy (diabetes) [address] [facility] [address] [address] [facility] [phone] [place], [place] [address] (Wo rk) Social History [...] PCP - General 07/08/05 [address] [place] [address] documented as of this encounter
--- OUTSIDE RECORDS SUMMARY | 2022-06-12 09:45 | XMS_ITS | Encounter Summary ---
:1955 Author Organization [employer] Address [address] [place] [address] Care Team Providers Name Role Phone Alisha Kimball MD Primary Care Provider Encounter Details Date Type Department Care Team Description 01/13/2013 Orders Only [facility] Diabetes mellitus type II [address] (HRC) [place] [address] [...] AM 3 7:38 CDT AM CDT Narrative [facility] - 01/13/2013 12:39 PM CDT Performed at [facility], [address] [place] [address] ??[phone] Alisha Kimball MD LAB_1 Performing Organization Address [facility] Phon e Number [facility] [phone] (ABNORMAL) HGB A1C (01/13/2013 7:33 AM CDT) [...] AM 3 7:38 CDT AM CDT Narrative [facility] - 01/13/2013 3:07 PM C DT Performed at [facility], [address] [place] [address] ??[phone] Alisha Kimball MD LAB_1 Performing Organization Address [facility] e Number [facility] [phone] documented in this encounter Visit Diagnoses Diagnosis Diabetes mellitus type II (HRC) Type II or unspecified type diabetes dinora litus without mention of complication, not stated as uncontrolled documented in this encounter Care Teams Senior Office Support Assistant Sosa Relationship Specialty Start Date End Date Alisha Kimball MD PCP - General 07/08/05 [address] [place] [address] documented as of this encounter
--- OUTSIDE RECORDS SUMMARY | 2022-06-12 09:45 | XMS_ITS | Encounter Summary ---
:1955 Author Organization [facility] Address [address] [place] [address] Care Team Providers Name Role Phone Alisha Kimball MD Primary Care Provider Reason for Referral Procedure/Equipment (Routine) - Closed Specialty Diagnoses / Procedures Referred By Contact Refer red To Contact Procedures Wy Mammogram MAMMOGRAM SCREENING BILATERAL [address] [place] [address] Referral ID Status Reason Start Date Expiration Date Visits Requ ested Visits Authorized [id number] Closed 10/24/2012 1 1 Reason for Visit Procedure/Equipment (Routine) - Closed Specialty Diagnoses / Procedures Referred By Contact Refer red To Contact Procedures Wy Mammogram MAMMOGRAM SCREENING BILATERAL [address] [facility] [place] [address] Referral ID Status Reason Start Date Expiration Date Visits Requ ested Visits Authorized [id number] Closed 10/24/2012 1 1 Encounter Details Date Type Department Care Team Description 10/24/2012 Imaging [facility] ury Mammography [address] [place] [address] Social History Tobacco Use Types [...] in this encounter Care Teams Director Of Finance Relationship Specialty Start Date End Date Alisha Kimball MD PCP - General 07/08/05 [address] [place] [address] documented as of this encounter
--- OUTSIDE RECORDS SUMMARY | 2022-06-12 09:45 | XMS_ITS | Encounter Summary ---
:1955 Author Organization [employer] Address [address], [place] [address] Care Team Providers Name Role Phone Alisha Kimball MD Primary Care Provider Reason for Visit Reason Comments Refill Encounter Details Date Type Department Care Team Description 09/24/2013 Refill [facility] Alisha Kimball MD Refill [address] [facility]. [address] [place] [address] [place], [place] [phone] (Wo rk) Social History Tobacco Use Types [...] 5 MG tablet (Sent to [employer] [facility] POOL) - LIPID PANEL (12 HR. FASTING) for atorvastatin (AKA LIPITOR) 10 MG tablet (Sent to [employer] [employer] POOL) Powered by [employer], Reference: [id number], 09/24/2013 8:49:09 PM CDT documented in this encounter Plan of Treatment Not on filedocumented as of this encounter Visit Diagnoses Diagnosis Pure hypercholesterolemia - Primary documented in this encounter Care Teams Cadastral Surveyor Relationship Specialty Start Date End Date Alisha Kimball MD PCP - General 07/08/05 [address] [place] [address] documented as of this encounter
--- OUTSIDE RECORDS SUMMARY | 2022-06-12 09:45 | XMS_ITS | Encounter Summary ---
:1955 Author Organization [employer] Address [address] [address] Care Team Providers Name Role Phone Alisha Kimball MD Primary Care Provider Reason for Visit Reason Comments ROUTINE HEALTH MAINTENANCE eyes are burning/ ears itch y for a while/ refill bp med/ check varicose veins are itc hy/ pap/ breast exam Encounter Details Date Type Department Care Team Description 10/24/2012 Office Visit [facility] Alisha Kimball, [facility] (Primary Dx); Practice MD Screening breast examination; [address] Breast cancer screening; [place] [address] [place] [address] Diabetes mellitus type II (HRC); [phone] Hypertension; (Work) Dry eyes; Varicose veins of [...] associated with diabetes is greatly reduced. The [employer] Diabetes Team is available to help you reach your goals. Diabetes is a disease requiring daily attention. For this reason, you are the most important person of the [employer] Diabetes Team. Name: Loc Velasco Guideline Goal [...] a list of these classes, please visit [email or web address] and click on the Health and Wellness tab or call the appointment center at [phone] to register for a class. Depending on [...] your eyes. Do not rub your eyes. Meqw-ucm-bftiuxc artificial tears may help you when you [...] Where can you learn more? Go to [employer] and enter [id number] in the search box. Last Revised: September 19, 2010 ?? [phone] [employer], [employer]mio. documented in this encounter Progress Notes Alisha [...] The patient is and works for the [employer]. Otherwise as above. ROS: A comprehensive review of systems was done today and was significant for a few concerns. 1. Not checking glucoses. Has lost some weight. 2. Bilateral itchy, watery, red eyes for months. No eye pain or vision changes. No discharge. No history of allergic rhinitis. Using Visine mzue-foh-pwglyzt and seems to help, but needs to [...] Symptomatic varicose veins. She will schedule with [facility]. Phone number supplied. Alisha Kimball [...] MD LAB_1 Performing Organization Address [facility] e Number [employer] [phone] [phone] CREATININE / GFR (10/24/2012 9:45 AM CDT) Analysis Performed At [facility] Time Signature Creatinine 0.68 0.52 - [facility] 1.04 mg/dl GFR, Estimated >60.0 >60 [facility] ml/min/1.7 3m2 GFR, Est., If >60.0 >60 [facility] ml/min/1.7 3m2 Specimen Anatomical Collection Method Collection Time Receive d Time (Source) Location / / Volume Laterality 10/24/2012 9:45 AM 3 9:52 CDT AM CDT Alisha Kimball MD LAB_1 Performing Organization Address [facility] e Number [facility] [employer] [phone] [phone] (ABNORMAL) ALT (SGPT) (10/24/2012 9:45 AM CDT) athologist Signature ALT (SGPT) 72 (H) 0 - 69 U/L [facility] Specimen Anatomical Collection Method Collection Time Receive d Time (Source) Location / / Volume Laterality 10/24/2012 9:45 AM 3 9:52 CDT AM CDT Alisha Kimball MD LAB_1 Performing Organization Address [facility] Phon e Number [facility] [employer] [phone] [phone] (ABNORMAL) LIPID PANEL AND DIRECT LDL(IF NEEDED) (10/24/2012 9:45 AM CDT) [facility] Method Time Signature Cholesterol 242 (H) 0 - 199 [facility] mg/dl Triglyceride 242 (H) 0 - 149 [facility] mg/dl HDL 43 >40 mg/dl [facility] LDL, Calc. 151 (H) 0 - 129 [facility] mg/dl Non HDL Chol, 199 mg/dl [facility] Calc Hours Fasting 14 hours [facility] Specimen Anatomical Collection Method Collection Time Receive d Time (Source) Location / / Volume Laterality 10/24/2012 9:45 AM 3 9:52 CDT AM CDT Alisha Kimball MD LAB_1 Performing Organization Address [facility] Phon e Number [facility] [employer] [phone] [phone] documented in this encounter Visit Diagnoses Diagnosis [...] complications documented in this encounter Care Teams Docketing Specialist Relationship Specialty Start Date End Date Alisha Kimball MD PCP - General 07/08/05 [address] [place] [address] documented as of this encounter
--- OUTSIDE RECORDS SUMMARY | 2022-06-12 09:45 | XMS_ITS | Encounter Summary ---
:1955 Author Organization [employer] Address [address], [place] [address] Care Team Providers Name Role Phone Alisha Kimball MD Primary Care Provider Reason for Visit Reason Comments BP CHECK,NURSE Encounter Details Date Type Department Care Team Description 11/09/2011 Nursing Visit [facility]/Cm/Maryjo, Simona Unspecifi ed essential Department Nursing hypertension (Primary [address] [place] [place] [address] [place], [place] [phone] Social History Tobacco Use Types Packs/Day Years [...] hypertension documented in this encounter Care Teams Mechanical Design Technician Relationship Specialty Start Date End Date Alisha Kimball MD PCP - General 07/08/05 [address] [place] [address] documented as of this encounter
--- OUTSIDE RECORDS SUMMARY | 2022-06-12 09:45 | XMS_ITS | Encounter Summary ---
:1955 Author Organization [facility] [employer] Address [address], [place] [address] Care Team Providers Name Role Phone Alisha Kimball MD Primary Care Provider Reason for Visit Reason Comments ROUTINE HEALTH MAINTENANCE no pap today/ breast exam Encounter Details Date Type Department Care Team Description 10/26/2011 Office Visit [facility] Alisha Kimball, [facility] (Primary Dx); Practice MD Diabetes mellitus type II ([facility]); [address] Screening breast examination; [place] [address] [place] [address] Hypertension [phone] Social History Tobacco Use Types Packs/Day Years [...] associated with diabetes is greatly reduced. The [facility] Team is available to help you reach your goals. Diabetes is a disease requiring daily attention. For this reason, you are the most important person of the [facility] Diabetes Team. Name: Loc Velasco Guideline Goal [...] a list of these classes, please visit [email or web address] and click on the Health and Wellness tab or call the appointment center at [phone] to register for a class. Depending on [...] ??? MULTIPLE VITAMIN OR None Entered ??? [place]-3 Fatty Acids (FISH OIL OR) ??? 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 Otherwise as above. ROS: A comprehensive review [...] hypertension documented in this encounter Care Teams Corporate Legal Intern Relationship Specialty Start Date End Date Alisha Kimball MD PCP - General 07/08/05 [address] [place] [address] documented as of this encounter
--- OUTSIDE RECORDS SUMMARY | 2022-06-12 09:45 | XMS_ITS | Encounter Summary ---
:1955 Author Organization [facility] Address [address] [place] [address] Care Team Providers Name Role Phone Alisha Kimball MD Primary Care Provider Reason for Visit Reason Onset Date Comments PHARMACIST COUNSELING 07/07/2013 diabetes Encounter Details Date Type Department Care Team Description 07/07/2013 Pharmacy [facility], Tesha, PHARMACIS T COUNSELING Pharmacy PharmD (diabetes) [address] [facility]. [address] [place] [address] [facility] [phone] [place], [place] [address] (Wo rk) Social History [...] in this encounter Care Teams Child Care Center Administrator Relationship Specialty Start Date End Date Alisha Kimball MD PCP - General 07/08/05 [address] [place], [place] [phone] documented as of this encounter
--- OUTSIDE RECORDS SUMMARY | 2022-06-12 09:45 | XMS_ITS | Encounter Summary ---
:1955 Author Organization [employer] Address [address] [address] Care Team Providers Name Role Phone Alisha Kimball MD Primary Care Provider Reason for Visit Reason Onset Date Comments Blood Glucose Readings 11/15/2012 Encounter Details Date Type Department Care Team Description 11/15/2012 Telephone [facility] Alisha Kimball MD Blood Glucose Readings Practice [address] [place] [address] [place] [address] [phone] Social History Tobacco Use Types Packs/Day Years [...] the atorvastatin? Thanks! Alisha Kimball MD Crystal iLndsay - 11/15/2012 8:10 AM CDT As instructed [...] on filedocumented in this encounter Care Teams Care Professional Relationship Specialty Start Date End Date Alisha Kimball MD PCP - General 07/08/05 [address] [place] [address] documented as of this encounter
--- OUTSIDE RECORDS SUMMARY | 2022-06-12 09:45 | XMS_ITS | Encounter Summary ---
:1955 Author Organization [employer] Address [address] [place] [address] Care Team Providers Name Role Phone Alisha [...] Department Care Team Description 06/30/2013 Office Visit [facility] Lebron Alfaro, Type II or unspecified type diabetes mellitus without mention of complication, not stated as uncontrolled (Primary Dx); [address] [place] Tear film insufficiency, uns pecified [place], [place] [phone] Social History Tobacco Use Types Packs/Day Years [...] day. These artificial tears can be purchased [id number] at our pharmacy and most discount stores. [...] then actually increase dryness of the eyes. PROGRAM DIRECTOR documented in this encounter Progress Notes Lebron [...] last eye exam was on 04/2010 at [facility] with Dr. Alfaro Diabetes is Type II (adult) and is managed by oral meds. HGB A1C (%) Date Value 01/13/2013 7.4* 12/16/2012 8.1* 10/24/2012 10.5* Assessment No evidence of diabetic retinopathy, dry eyes Plan Artificial tears as needed Return to clinic in 1 year(s) Lebron Alfaro, RAJEEV PROGRAM DIRECTOR documented in this encounter Plan of Treatment Not on filedocumented as of this encounter Visit Diagnoses Diagnosis Type II or unspecified type diabetes dinora litus without mention of complication, not stated as uncontrolled (HRC) - Primary Type II or unspecified type diabetes dinora litus without mention of complication, not stated as uncontrolled Tear film insufficiency, unspecified documented in this encounter Care Teams Manager Technical Training Relationship Specialty Start Date End Date Alisha Kimball MD PCP - General 07/08/05 [address] [place] [address] documented as of this encounter
--- OUTSIDE RECORDS SUMMARY | 2022-06-12 09:45 | XMS_ITS | Encounter Summary ---
:1955 Author Organization [employer] Address [address] [place] [address] Care Team Providers Name Role Phone Alisha Kimball MD Primary Care Provider Encounter Details Date Type Department Care Team Description 12/16/2012 Orders Only [facility] Diabetes mellitus type II ([facility]); [address] Hypercholesterolemia; [place] [address] Elevated liver enzymes [phone] Social History Tobacco Use Types Packs/Day Years [...] 12/16/2012 2:00 PM C DT Performed at [facility], [address] [place] [address] ??[id number] Alisha Kimball MD LAB_1 Performing Organization Address City/[facility] Phon e Number [facility] [phone] LIVER PANEL(HEPATIC FUNCTION PANEL) (12/16/2012 7:33 AM CDT) [facility] Method Time Signature Alkaline 90 38 - [...] - 12/16/2012 12:42 PM CDT Performed at [facility], [address] [place] [address] ??[id number] Alisha Kimball MD LAB_1 Performing Organization Address City/[facility] Phon e Number [facility] [phone] LIPID PANEL AND DIRECT LDL(IF NEEDED) (12/16/2012 7:33 AM CDT) [employer] Method Time Signature Hours Fasting 12 hours [...] - 12/16/2012 12:42 PM CDT Performed at [facility], [address] [place] [address] ??[id number] Alisha Kimball MD LAB_1 Performing Organization Address City/State/ZIP Code Phon e Number [facility] [phone] documented in this encounter Visit Diagnoses Diagnosis Diabetes mellitus type II (HRC) Type II or unspecified type diabetes dinora litus without mention of complication, not stated as uncontrolled Hypercholesterolemia Pure hypercholesterolemia Elevated liver enzymes Nonspecific elevation of levels of trans aminase or lactic acid dehydrogenase (LDH) documented in this encounter Care Teams Cager Operator Relationship Specialty Start Date End Date Alisha Kimball MD PCP - General 07/08/05 [address] [place], [place] [id number] documented as of this encounter
--- OUTSIDE RECORDS SUMMARY | 2022-06-12 09:45 | XMS_ITS | Encounter Summary ---
:1955 Author Organization [facility] Address [address], [place] [address] Care Team Providers Name Role Phone Alisha Kimball MD Primary Care Provider Encounter Details Date Type Department Care Team Description 01/15/2013 Orders Only [facility] Alisha Kimball, Diabetes mellitus type Practice MD II (C) (Primary Dx) [address] [facility]. [address] [place] [address] [place] [address] [phone] Social History Tobacco Use Types Packs/Day Years [...] uncontrolled documented in this encounter Care Teams Straw Hat Brusher Relationship Specialty Start Date End Date Alisha Kimball MD PCP - General 07/08/05 [address] [place], [place] [address] documented as of this encounter
--- OUTSIDE RECORDS SUMMARY | 2022-06-12 09:45 | XMS_ITS | Encounter Summary ---
:1955 Author Organization [facility] Address [address] [place] [address] Care Team Providers Name Role Phone Alisha Kimball MD Primary Care Provider Reason for Visit Reason Onset Date Comments QUESTIONS, GENERAL 11/04/2011 Encounter Details Date Type Department Care Team Description 11/04/2011 Telephone [facility] maxi Alisha Kimball MD QUESTIONS, GENERAL [address] [place] [address] [place], [place] [phone] (Wo rk) Social History Tobacco Use Types Packs/Day Years Used Date Smoking Tobacco: Never Alcohol Use Standard Drinks/Week Comments No 0 (1 standard drink = 0.6 oz pure alcoho l) Sex Assigned at Date Recorded Not on file documented as of this encounter Nursing Notes Francesca Cho CMA - 11/04/2011 9:45 AM CDT Patient informed and agree's with plan. I sent her to [facility] to schedule with procedure nurse. TOT [...] on filedocumented in this encounter Care Teams Edger Saw Operator Relationship Specialty Start Date End Date Alisha Kimball MD PCP - General 07/08/05 [address] [place] [address] documented as of this encounter
--- OUTSIDE RECORDS SUMMARY | 2022-06-12 09:45 | XMS_ITS | Encounter Summary ---
:1955 Author Organization [facility] Address [address], [place] [address] Care Team Providers Name Role Phone Alisha Kimball MD Primary Care Provider Reason for Visit Reason Onset Date Comments PHARMACIST COUNSELING 01/02/2013 diabetes Encounter Details Date Type Department Care Team Description 01/02/2013 Pharmacy [facility] Daria Galvez PHARMAC IST COUNSELING Pharmacy PharmD (diabetes) [address] [facility]. [address] [place] [address] [place], [place] [phone] (Wo rk) Social History Tobacco Use Types [...] on filedocumented in this encounter Care Teams Fitting Room Maintenance Mechanic Relationship Specialty Start Date End Date Alisha Kimball MD PCP - General 07/08/05 [address] [place], [place] [phone] documented as of this encounter
--- OUTSIDE RECORDS SUMMARY | 2022-06-12 09:45 | XMS_ITS | Encounter Summary ---
:1955 Author Organization [employer] Address [address] [place] [address] Care Team Providers Name Role Phone Alisha Kimball MD Primary Care Provider Reason for Visit Reason Comments DIABETES, MELLITUS Encounter Details Date Type Department Care Team Description 10/31/2012 Office Visit [facility] Alisha Kimball, Diabetes mellitus type II (HRC) (Primary Dx); Practice MD Need for prophylactic vaccination agains t Streptococcus pneumoniae (pneumococcus); [address] Hypercholesterolemia; [place] [address] [place], [place] Elevated liver enzymes [phone] Social History Tobacco Use Types Packs/Day Years [...] Lab Only appointment online or by calling [phone]. Understanding Optimal Diabetes Care Goals The five optimal diabetes care goals shown below were designed to measure how well your diabetes is being managed. When all five goals are achieved, your risk for health problems associated with diabetes is greatly reduced. The [facility] Diabetes Team is available to help you reach your goals. Diabetes is a disease requiring daily attention. For this reason, you are the most important person of the [facility] Diabetes Team. Name: Loc Velasco Guideline Goal [...] a list of these classes, please visit [email or web address] and click on the Health and Wellness tab or call the appointment center at [phone] to register for a class. Depending on your insurance coverage, a fee to participate in certain classes may apply documented in this encounter Progress Notes Alisha Kimball MD - 10/31/2012 8:01 PM CDT S: Loc Velasco is a 57 yr old female never smoker seen for follow up of her type 2 diabetes. Shewas seen for a [facility] visit recently and she had her labs [...] committed to weight loss and exercise. Declines chief clinical dietitian and diabetes nurse visits. See the patient [...] 12/16/2012 2:00 PM C DT Performed at [facility], [address] [place] [address] ??[phone] Alisha Kimball MD LAB_1 Performing Organization Address [facility] Phon e Number [facility] [phone] LIVER PANEL(HEPATIC FUNCTION PANEL) (12/16/2012 7:33 AM CDT) [facility] Method Time Signature Alkaline 90 38 - [...] - 12/16/2012 12:42 PM CDT Performed at [facility], [address] [place] [address] ??[phone] Alisha Kimball MD LAB_1 Performing Organization Address City/[facility] Phon e Number [facility] [phone] LIPID PANEL AND DIRECT LDL(IF NEEDED) (12/16/2012 7:33 AM CDT) [email or web address] Method Time Signature Hours Fasting 12 hours [...] 12/16/2012 12:42 PM CDT Performed at [facility], [address] [place] [address] ??[id number] Alisha Kimball MD LAB_1 Performing Organization Address City/State/ZIP Code Phon e Number [facility] [phone] documented in this encounter Visit Diagnoses Diagnosis [...] (LDH) documented in this encounter Care Teams Gettering Filament Machine Operator Relationship Specialty Start Date End Date Alisha Kimball MD PCP - General 07/08/05 [address] [place] [address] documented as of this encounter
--- OUTSIDE RECORDS SUMMARY | 2022-06-12 09:46 | XMS_ITS | Encounter Summary ---
:1955 Author Organization [employer] Address [address] [place] [address] Care Team Providers Name Role Phone Alisha Kimball MD Primary Care Provider Encounter Details Date Type Department Care Team Description 11/17/2007 Office Visit [facility] Kiah August H, OTR/L Mallet Finger (Primary [address] Dx) [address] [place] [phone] Social History Tobacco Use Types Packs/Day Years Used Date Smoking Tobacco: Never Alcohol Use Standard Drinks/Week Comments Not Asked 0 (1 standard drink = 0.6 oz pure alcoho l) Sex Assigned at Date Recorded Not on file documented as of this encounter Progress Notes Kiah August H - 11/17/2007 3:59 PM CDT HAND OCCUPATIONAL THERAPY DAILY NOTE 11/17/2007 Patient Name: Loc Velasco [id number] Payor: SELF [id number] Plan: SELF INSURED Product Type: *No Product [...] documented in this encounter Care Teams Machinist 2Nd Shift Relationship Specialty Start Date End Date Alisha Kimball MD PCP - General 07/08/05 [address] [place] [address] documented as of this encounter
--- OUTSIDE RECORDS SUMMARY | 2022-06-12 09:46 | XMS_ITS | Encounter Summary ---
:1955 Author Organization [employer] Address [address], [place] [address] Care Team Providers Name Role Phone Alisha Kimball MD Primary Care Provider Encounter Details Date Type Department Care Team Description 12/27/2007 Office Visit Specialty Center Kiah August H, OTR/L Mallet Finger (Primary [address] Dx) [address] [place] [phone] Social History Tobacco Use Types Packs/Day Years Used Date Smoking Tobacco: Never Alcohol Use Standard Drinks/Week Comments Not Asked 0 (1 standard drink = 0.6 oz pure alcoho l) Sex Assigned at Date Recorded Not on file documented as of this encounter Progress Notes Kiah August H - 12/27/2007 10:05 AM CDT HAND OCCUPATIONAL THERAPY DAILY NOTE 12/27/2007 Patient Name: Loc Velasco [id number] Payor: SELF [id number] Plan: SELF INSURED Product Type: *No Product [...] Active ROM, Passive ROM, Strengthening and Check animal husbandry worker/3pt. Pinch strength. Will continue to see pt. 1x/week for next 6 weeks. MINUTES SEEN: 30 Treatment Charges: Physical Agent Modalities: Ultrasound: Quantity: 1 Treatment: Therapeutic Exercises: Quantity: 1 Kiah Beal OTR/L documented in this encounter Plan of Treatment Not on filedocumented as of this encounter Visit Diagnoses Diagnosis Mallet finger - Primary documented in this encounter Care Teams Machine Hoop Maker Relationship Specialty Start Date End Date Alisha Kimball MD PCP - General 07/08/05 [address] [place] [address] documented as of this encounter
--- OUTSIDE RECORDS SUMMARY | 2022-06-12 09:46 | XMS_ITS | Encounter Summary ---
:1955 Author Organization [employer] Address [address] [place] [address] Care Team Providers Name Role Phone Alisha Kimball MD Primary Care Provider Reason for Referral Specialty Diagnoses / Procedures Referred By Contact Refer red To Contact Wendi Berry, REGINALD Clark [address] [place] [address] Referral ID Status Reason Start Date Expiration Date Visits Requ ested Visits Authorized Reason for Visit Reason Comments Follow Up mallet injury Encounter Details Date Type Department Care Team Description 11/01/2007 Office Visit Specialty Center Jigar Mcgarry Mall et Finger (Primary [address] [facility], Dx) Surgery [address] [place] [phone] Social History Tobacco Use Types Packs/Day Years [...] Primary documented in this encounter Care Teams Knitting Machine Tender Relationship Specialty Start Date End Date Alisha Kimball MD PCP - General 07/08/05 [address] [place] [address] documented as of this encounter
--- OUTSIDE RECORDS SUMMARY | 2022-06-12 09:46 | XMS_ITS | Encounter Summary ---
:1955 Author Organization [facility] Address [address] [place] [address] Care Team Providers Name Role Phone Alisha Kimball MD Primary Care Provider Reason for Visit Reason Onset Date Comments DIABETES EDUCATION 09/26/2010 Encounter Details Date Type Department Care Team Description 09/24/2010 Office Visit [facility] Diabetes u ncomplicated Program adult-type II (Primary Dx) [address] [place] [address] Social History Tobacco Use Types [...] diabetes class series Diabetes -PuttingYourself In The College Scouting Coordinator's Seat using conversation maps. Referring provider: Alisha [...] documented in this encounter Care Teams Bank Operations Officer Relationship Specialty Start Date End Date Alisha Kimball MD PCP - General 07/08/05 [address] [place] [address] documented as of this encounter
--- OUTSIDE RECORDS SUMMARY | 2022-06-12 09:46 | XMS_ITS | Encounter Summary ---
:1955 Author Organization [employer] Address [address] [place] [address] Care Team Providers Name Role Phone Alisha [...] (Pr imary Dx) Surgery [address] [place] [address] Social History Tobacco Use Types Packs/Day Years Used Date Smoking Tobacco: Never Alcohol Use Standard Drinks/Week Comments Not Asked 0 (1 standard drink = 0.6 oz pure alcoho l) Sex Assigned at Date Recorded Not on file documented as of this encounter Last Filed Vital Signs Vital Sign Reading Time Taken Comments Blood Pressure 98/58 05/26/2010 2:55 PM RESIDENT ASSOCIATE Pulse 64 05/26/2010 2:55 PM RESIDENT ASSOCIATE Temperature 36.4 ??C (97.5 ??F) 05/26/2010 2:55 PM RESIDENT ASSOCIATE Respiratory Rate - - Oxygen Saturation - [...] and patient would like to continue with [id number]-[id number] products. Discussed some general stretching and range of motion exercises, alsodiscussed shoewear and important features. She did not want to consider a cortisone injection at this time and will followup if her symptoms worsen. She will continue oral anti-inflammatory medication as tolerated and needed. All questions were answered. Travis Lanza DPM DENT ASSOCIATE documented in this encounter Plan of Treatment Scheduled Referrals Name Type Priority Associated Diagnoses Order S chedule FOOT & ANKLE/PODIATRY Referral Routine Foot pain Ordere d: 04/28/2010 CONSULT-ADULT/PEDS documented as of this encounter Visit Diagnoses Diagnosis Osteoarthritis of foot joint - Primary Osteoarthrosis, unspecified whether gene ralized or localized, ankle and foot documented in this encounter Care Teams Hall Tender Relationship Specialty Start Date End Date Alisha Kimball MD PCP - General 07/08/05 [address] [place] [address] documented as of this encounter
--- OUTSIDE RECORDS SUMMARY | 2022-06-12 09:46 | XMS_ITS | Encounter Summary ---
:1955 Author Organization [facility] Address [address] [place] [address] Care Team Providers Name Role Phone Alisha Kimball MD Primary Care Provider Encounter Details Date Type Department Care Team Description 09/21/2011 Imaging [facility] ury Mammography [address] [place] [address] Social History Tobacco Use [...] filedocumented in this encounter Care Teams Lead Infrastructure Architect Relationship Specialty Start Date End Date Alisha Kimball MD PCP - General 07/08/05 [address] [place] [address] documented as of this encounter
--- OUTSIDE RECORDS SUMMARY | 2022-06-12 09:46 | XMS_ITS | Encounter Summary ---
:1955 Author Organization [facility] Address [address] [place] [address] Care Team Providers Name Role Phone Alisha Kimball MD Primary Care Provider Encounter Details Date Type Department Care Team Description 07/16/2009 Imaging [facility] Screening, Mammography Unspecified [address] [place], [place] [id number] Social History Tobacco Use Types Packs/Day Years [...] Resu lts for this SCREENING BILAT W TRADE SHOW COORDINATOR Unspecified procedure are in CAD the results section. documented in this encounter Results MAMMOGRAM SCREENING BILATERAL [[id number]] (07/16/2009 8:43 AM TRADE SHOW COORDINATOR) Anatomical Region Laterality Modality Breast Bilateral Mammography Specimen (Source) Anatomical Location Collection Method / Collectio n Time Received Time / Laterality Volume Narrative 07/17/2009 1:31 PM TRADE SHOW COORDINATOR BILATERAL FULL FIELD DIGITAL SCREENING MAMMOGRAM [...] unspecified documented in this encounter Care Teams Bath Solution Maker Relationship Specialty Start Date End Date Alisha Kimball MD PCP - General 07/08/05 [address] [place] [address] documented as of this encounter
--- OUTSIDE RECORDS SUMMARY | 2022-06-12 09:46 | XMS_ITS | Encounter Summary ---
:1955 Author Organization [facility] Address [address] [place] [address] Care Team Providers Name Role Phone Alisha Kimball MD Primary Care Provider Reason for Visit Reason Comments Nutrition Counseling Encounter Details Date Type Department Care Team Description 07/29/2010 Office Visit [facility] Meaghan Palm, Diab etes mellitus type Clinic RD, LD II ([facility]) (Primary Dx) [address] [place] [address] Social History Tobacco Use Types [...] spouse, who is following similar eating habits. 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 Changes since dx: eating smaller portions, no sweets, Large amount of vegetables and protein in diet Exercise: brisk walk(~1 mile)3 times/wk in the [facility] with friends before work, thinking about to [...] once a week. Snack - lite yogurt, Little1 bar or Glucerna Dinner @ around 5-5:30 [...] of controlled carb meal plan. Calorie Intake. [phone] calories with 15-30 grams of carb per [...] 07/29/2010 60 minutes in education and counseling Y ATTENDANT documented in this encounter Plan of Treatment Not on filedocumented as of this encounter Visit Diagnoses Diagnosis Diabetes mellitus type II (HRC) - Primar y Type II or unspecified type diabetes dinora litus without mention of complication, not stated as uncontrolled documented in this encounter Care Teams Long Wall Mining Machine Tender Relationship Specialty Start Date End Date Alisha Kimball MD PCP - General 07/08/05 [address] [place] [address] documented as of this encounter
--- OUTSIDE RECORDS SUMMARY | 2022-06-12 09:46 | XMS_ITS | Encounter Summary ---
:1955 Author Organization [email or web address] Address [address] [place] [address] Care Team Providers Name Role Phone Alisha Kimball MD Primary Care Provider Encounter Details Date Type Department Care Team Description 11/10/2007 Office Visit [facility] Kiah August H, OTR/L Mallet Finger (Primary [address] Dx) [address] [place] [phone] Social History Tobacco Use Types Packs/Day Years Used Date Smoking Tobacco: Never Alcohol Use Standard Drinks/Week Comments Not Asked 0 (1 standard drink = 0.6 oz pure alcoho l) Sex Assigned at Date Recorded Not on file documented as of this encounter Progress Notes Kiah August H - 11/10/2007 3:36 PM CDT HAND OCCUPATIONAL THERAPY DAILY NOTE 11/10/2007 Patient Name: Loc Velasco [id number] Payor: SELF [id number] Plan: SELF INSURED Product Type: *No Product [...] documented in this encounter Care Teams Computer Aided Drafter Relationship Specialty Start Date End Date Alisha Kimball MD PCP - General 07/08/05 [address] [place] [address] documented as of this encounter
--- OUTSIDE RECORDS SUMMARY | 2022-06-12 09:46 | XMS_ITS | Encounter Summary ---
:1955 Author Organization [employer] Address [address] [place] [address] Care Team Providers Name Role Phone Alisha Kimball MD Primary Care Provider Encounter Details Date Type Department Care Team Description 11/30/2007 Office Visit Specialty Center Kiah August H, OTR/L Mallet Finger (Primary [address] Dx) [address] [place] [phone] Social History Tobacco Use Types Packs/Day Years Used Date Smoking Tobacco: Never Alcohol Use Standard Drinks/Week Comments Not Asked 0 (1 standard drink = 0.6 oz pure alcoho l) Sex Assigned at Date Recorded Not on file documented as of this encounter Progress Notes Kiah August H - 11/30/2007 3:20 PM CDT HAND OCCUPATIONAL THERAPY DAILY NOTE 11/30/2007 Patient Name: Loc Velasco [id number] Payor: SELF [id number] Plan: SELF INSURED Product Type: *No Product [...] Primary documented in this encounter Care Teams Radio Reporter Relationship Specialty Start Date End Date Alisha Kimball MD PCP - General 07/08/05 [address] [place] [address] documented as of this encounter
--- OUTSIDE RECORDS SUMMARY | 2022-06-12 09:46 | XMS_ITS | Encounter Summary ---
:1955 Author Organization [facility] Address [address] [place] [address] Care Team Providers Name Role Phone Alisha Kimball MD Primary Care Provider Encounter Details Date Type Department Care Team Description 07/21/2010 Imaging [facility] cancer screening Mammography [address] [place] [address] Social History Tobacco Use Types [...] cancer Results for this SCREENING BILAT W UNMANNED EQUIPMENT OPERATOR screening procedure are in CAD the results section. documented in this encounter Results MAMMOGRAM SCREENING BILATERAL (07/21/2010 9:27 AM UNMANNED EQUIPMENT OPERATOR) Anatomical Region Laterality Modality Breast Bilateral Mammography Specimen (Source) Anatomical Location Collection Method / Collectio n Time Received Time / Laterality Volume Narrative 07/22/2010 2:03 PM UNMANNED EQUIPMENT OPERATOR BILATERAL FULL FIELD DIGITAL SCREENING MAMMOGRAM Performed [...] unspecified documented in this encounter Care Teams Planner Chief Relationship Specialty Start Date End Date Alisha Kimball MD PCP - General 07/08/05 [address] [place] [address] documented as of this encounter
--- OUTSIDE RECORDS SUMMARY | 2022-06-12 09:46 | XMS_ITS | Encounter Summary ---
:1955 Author Organization [facility] Address [address] [place] [address] Care Team Providers Name Role Phone Alisha Kimball MD Primary Care Provider Reason for Referral Specialty Diagnoses / Procedures Referred By Contact Refer red To Contact Alisha Kimball MD [address] [place] [address] Referral ID Status Reason Start Date Expiration Date Visits Requ ested Visits Authorized Scheduling Instructions . BUILDER Specialty Diagnoses / Procedures Referred By Contact Refer red To Contact Alisha Kimball MD [address] [place] [address] Referral ID Status Reason Start Date Expiration [...] call the number on your insurance card. BUILDER Specialty Diagnoses / Procedures Referred By Contact Refer red To Contact Alisha Kimball MD [address] [place] [address] Referral ID Status Reason Start Date Expiration [...] call the number on your insurance card. BUILDER Reason for Visit Reason Comments LAB RESULTS glucose and A1C Encounter Details Date Type Department Care Team Description 05/14/2010 Telephone [facility] Alisha Kimball MD LAB RESULTS (glucose Practice [address] and A1C) [address] [place] [address] [place], [place] [address] [phone] Social History Tobacco Use Types Packs/Day Years Used Date Smoking Tobacco: Never Alcohol Use Standard Drinks/Week Comments Not Asked 0 (1 standard drink = 0.6 oz pure alcoho l) Sex Assigned at Date Recorded Not on file documented as of this encounter Nursing Notes Francesca Cho CMA - 05/15/2010 3:35 PM CST Loc was notified. Francesca Cho BUILDER [facility] - 05/15/2010 2:52 PM CST Patient is returning nurse's call BUILDER Francesca Cho CMA - 05/15/2010 9:00 AM CST [facility] Francesca Cho BUILDER Alisha Kimball - 05/14/2010 6:49 PM CST Please call Melia. Her glucose is better, but not normal. Her A1C suggests higher glucoses over the past 3 months, so she has diabetes. Should see life educator and windows software developer to learn glucose monitoring. See orders. Thanks! Alisha Kimball MD BUILDER documented in this encounter Plan of Treatment Scheduled Referrals Name Type Priority Associated Diagnoses Order S chedule DIABETES ED CLASSES Referral Routine Diabetes mellitus typ e Ordered: 05/14/2010 II ([facility]) DIABETES ED DIETITIAN Referral Routine Diabetes mellitus t ype Ordered: 05/14/2010 VISIT II ([facility]) DIABETES ED NURSE VISIT Referral Routine Diabetes mellitus type Ordered: 05/14/2010 II ([facility]) documented as of this encounter Visit Diagnoses Diagnosis Diabetes mellitus type II ([facility]) - Primar y Type II or unspecified type diabetes dinora litus without mention of complication, not stated as uncontrolled documented in this encounter Care Teams Supervisory Examiner Relationship Specialty Start Date End Date Alisha Kimball MD PCP - General 07/08/05 [address] [place] [address] documented as of this encounter
--- OUTSIDE RECORDS SUMMARY | 2022-06-12 09:46 | XMS_ITS | Encounter Summary ---
:1955 Author Organization [employer] Address [address] [place] [address] Care Team Providers Name Role Phone Alisha Kimball MD Primary Care Provider Reason for Visit Reason Onset Date Comments CLASS,DIABETES DIABETES EDUCATION 09/29/2010 Encounter Details Date Type Department Care Team Description 09/30/2010 Office Visit [facility] Pr ogram DM w/o complication type [address] II, uncontrolled ([place] [address] Dx) [phone] Social History Tobacco Use Types Packs/Day Years [...] diabetes class series Diabetes -PuttingYourself In The Fire Lieutenant's Seat using conversation maps. Incorporating appropriate nutritional [...] Primary documented in this encounter Care Teams Coal Miner Relationship Specialty Start Date End Date Alisha Kimball MD PCP - General 07/08/05 [address] [place] [address] documented as of this encounter
--- OUTSIDE RECORDS SUMMARY | 2022-06-12 09:46 | XMS_ITS | Encounter Summary ---
:1955 Author Organization [employer] Address [address], [place] [address] Care Team Providers Name Role Phone Alisha Kimball MD Primary Care Provider Encounter Details Date Type Department Care Team Description 12/19/2007 Office Visit Specialty Center Kiah August H, OTR/L Mallet Finger (Primary [address] Dx) [address] [place] [phone] Social History Tobacco Use Types Packs/Day Years Used Date Smoking Tobacco: Never Alcohol Use Standard Drinks/Week Comments Not Asked 0 (1 standard drink = 0.6 oz pure alcoho l) Sex Assigned at Date Recorded Not on file documented as of this encounter Progress Notes Kiah August H - 12/19/2007 3:53 PM CDT HAND OCCUPATIONAL THERAPY DAILY NOTE 12/19/2007 Patient Name: Loc Velasco [id number] Payor: SELF [id number] Plan: SELF INSURED Product Type: *No Product [...] Active ROM, Passive ROM, Strengthening and Check sagger soak/3pt. Pinch strength. Will continue to see pt. 1x/week for next 6 weeks. MINUTES SEEN: 30 Treatment Charges: Physical Agent Modalities: Ultrasound: Quantity: 1 Treatment: Therapeutic Exercises: Quantity: 1 YOLANDA Ellis/Salome documented in this encounter Plan of Treatment Not on filedocumented as of this encounter Visit Diagnoses Diagnosis Mallet finger - Primary documented in this encounter Care Teams Emergency Department Aide Relationship Specialty Start Date End Date Alisha Kimball MD PCP - General 07/08/05 [address] [place] [address] documented as of this encounter
--- OUTSIDE RECORDS SUMMARY | 2022-06-12 09:46 | XMS_ITS | Encounter Summary ---
:1955 Author Organization [facility] Address [address] [place] [address] Care Team Providers Name Role Phone Alisha Kimball MD Primary Care Provider Encounter Details Date Type Department Care Team Description 04/28/2010 Imaging [facility] Foot pain [address] [place] [address] Social History Tobacco Use Types [...] limb documented in this encounter Care Teams Cutter And Paster Press Clippings Relationship Specialty Start Date End Date Alisha Kimball MD PCP - General 07/08/05 [address] [place] [address] documented as of this encounter
--- OUTSIDE RECORDS SUMMARY | 2022-06-12 09:46 | XMS_ITS | Encounter Summary ---
:1955 Author Organization [employer] Address [address] [address] Care Team Providers Name Role Phone Alisha Kimball MD Primary Care Provider Encounter Details Date Type Department Care Team Description 12/13/2007 Office Visit Specialty Center Kiah August H, OTR/L Mallet Finger (Primary [address] Dx) [address] [place] [phone] Social History Tobacco Use Types Packs/Day Years Used Date Smoking Tobacco: Never Alcohol Use Standard Drinks/Week Comments Not Asked 0 (1 standard drink = 0.6 oz pure alcoho l) Sex Assigned at Date Recorded Not on file documented as of this encounter Progress Notes Kiah August H - 12/13/2007 9:27 AM CDT HAND OCCUPATIONAL THERAPY DAILY/PROGRESS NOTE 12/13/2007 Patient Name: Loc Velasco [id number] Payor: SELF [id number] Plan: SELF INSURED Product Type: *No Product [...] Active ROM, Passive ROM, Strengthening and Check glove presser/3pt. Pinch strength. Will continue to see pt. 1x/week for next 6 weeks. MINUTES SEEN: 30 Treatment Charges: Physical Agent Modalities: Fluidotherapy / whirlpool Treatment: Therapeutic Exercises: Quantity: 1 Kiah Bela,SHIRLEYR/L documented in this encounter Plan of Treatment Not on filedocumented as of this encounter Visit Diagnoses Diagnosis Mallet finger - Primary documented in this encounter Care Teams Loan Teller Relationship Specialty Start Date End Date Alisha Kimball MD PCP - General 07/08/05 [address] [place] [address] documented as of this encounter
--- OUTSIDE RECORDS SUMMARY | 2022-06-12 09:46 | XMS_ITS | Encounter Summary ---
:1955 Author Organization [employer] Address [address], [place] [address] Care Team Providers Name Role Phone Alisha Kimball MD Primary Care Provider Reason for Visit Reason Comments FOLLOW-UP,BP Encounter Details Date Type Department Care Team Description 05/07/2009 Office Visit [facility] Alisha Kimball, Elevated Blood Pressure (Primary Dx); Practice MD Breast Screening, Unspecified [address] [facility]. [address] [place] [address] [place] [address] [phone] Social History Tobacco Use Types Packs/Day Years Used Date Smoking Tobacco: Never Alcohol Use Standard Drinks/Week Comments Not Asked 0 (1 standard drink = 0.6 oz pure alcoho l) Sex Assigned at Date Recorded Not on file documented as of this encounter Last Filed Vital Signs Vital Sign Reading Time Taken Comments Blood Pressure 120/78 05/07/2009 8:35 AM KEY BED INSTALLER Pulse 76 05/07/2009 8:35 AM KEY BED INSTALLER Temperature - - Respiratory Rate 16 05/07/2009 8:35 AM KEY BED INSTALLER Oxygen Saturation - - Inhaled Oxygen Concentration - - Weight 84.8 kg (187 lb) 05/07/2009 8:35 AM KEY BED INSTALLER Height - - Body Mass Index 32.1 08/09/2007 4:16 PM KEY BED INSTALLER documented in this encounter Progress Notes Alisha [...] blurry vision. Good exercise tolerance. Nouse of Sudafed/ukri-xbm-iyeapml decongestants. Rare EtOH and caffeine use. O: [...] blood pressure stays elevated. Alisha Kimball MD BED INSTALLER documented in this encounter Plan of Treatment Not on filedocumented as of this encounter Results MAMMOGRAM SCREENING BILATERAL [[id number]] (07/16/2009 8:43 AM KEY BED INSTALLER) Anatomical Region Laterality Modality Breast Bilateral Mammography Specimen (Source) Anatomical Location Collection Method / Collectio n Time Received Time / Laterality Volume Narrative 07/17/2009 1:31 PM KEY BED INSTALLER BILATERAL FULL FIELD DIGITAL SCREENING MAMMOGRAM [...] unspecified documented in this encounter Care Teams Vice President Of Development Relationship Specialty Start Date End Date Alisha Kimball MD PCP - General 07/08/05 [address] [place] [address] documented as of this encounter
--- OUTSIDE RECORDS SUMMARY | 2022-06-12 09:46 | XMS_ITS | Encounter Summary ---
:1955 Author Organization [employer] Address [address] [place] [address] Care Team Providers Name Role Phone Alisha Kimball MD Primary Care Provider Reason for Visit Reason Comments DIABETES EDUCATION Encounter Details Date Type Department Care Team Description 06/05/2010 Office Visit [facility] Janiya Naqvi Diabet es mellitus type Program Meghann RN, CDE II ([facility]) (Primary Dx) [address] [place] [address] Social History Tobacco Use Types Packs/Day Years Used Date Smoking Tobacco: Never Alcohol Use Standard Drinks/Week Comments Not Asked 0 (1 standard drink = 0.6 oz pure alcoho l) Sex Assigned at Date Recorded Not on file documented as of this encounter Patient Instructions Patient InstructionsJaniya Naqvi RN, CDE - 06/05/2010 5:22 PM COLLECTIONS CURATOR 1. Test blood sugar 1-2 times daily--before meals or 2 hours after a meal 2. Attend diabetes classes in 2-3 months 3. See Cam[place] diabetes nurse on Wednesday at 430PM 4. Schedule appointment to see dietitian ECTIONS CURATOR documented in this encounter Progress Notes Janiya Naqvi RN, CDE - 06/05/2010 5:15 PM CST SUBJECTIVE Loc Velasco is referred by Dr.Karen Kimball([facility]) for Diabetes Education. Accompanied by: unaccompanied, prefers [...] days per wk and plans to join [employer] Diet/Eating Habits: eats 3 meals /day, has [...] meal Appointments to be scheduled (Appointment center [phone]): 1. Attend diabetes classes in 2-3 months 2. See Camille diabetes nurse on Wednesday at 430PM Time spent with the patient: 60 minutes for diabetes education and counseling. Janiya Naqvi, RN, CDE 06/05/2010, 4:35 PM ECTIONS CURATOR documented in this encounter Plan of Treatment Not on filedocumented as of this encounter Visit Diagnoses Diagnosis Diabetes mellitus type II (HRC) - Primar y Type II or unspecified type diabetes dinora litus without mention of complication, not stated as uncontrolled documented in this encounter Care Teams Stem Lead Former Relationship Specialty Start Date End Date Alisha Kimball MD PCP - General 07/08/[address] [place] [address] documented as of this encounter
--- OUTSIDE RECORDS SUMMARY | 2022-06-12 09:46 | XMS_ITS | Encounter Summary ---
:1955 Author Organization [employer] Address [address] [address] Care Team Providers Name Role Phone Alisha Kimball MD Primary Care Provider Reason for Visit Reason Comments DIABETES EDUCATION Encounter Details Date Type Department Care Team Description 07/08/2010 Office Visit [facility] Janiya Naqvi Diabfortunato es mellitus type Program Meghann RN, CDE II ([facility]) (Primary Dx) [address] [place] [phone] Social History Tobacco Use Types Packs/Day Years [...] (180 lb 9.6 oz) 07/08/2010 4:50 PM LOCK TENDER Height - - Body Mass Index 30.76 04/28/2010 8:10 AM CDT documented in this encounter Progress Notes Janiya Naqvi RN, CDE - 07/08/2010 6:08 PM CST SUBJECTIVE Loc Velasco is referred by standing order for Diabetes Education. Accompanied by: unaccompanied Changes since last encounter: diet: eating smaller portions, no sweets, had some higher sugars over the [place] weekend(no sweets, just too many carbs(dips, crackers,etc) Exercise: brisk walk(~1 mile)3 times/wk in the [facility] with friends before work, plans to join [employer] medication(s): none hypoglycemia: none monitoring blood sugars: [...] program Appointments to be scheduled (Appointment center [phone]): Diabetes classes: is registered to attend 09/2010 Dietitian:is scheduled to see Viki Palm on 07/29/10 for consultation Diabetes Nurse Specialist: see 4-6 weeks post DM classes Time spent with the patient: 60 minutes for diabetes education and counseling. Janiya Naqvi RN, CDE 07/08/2010, 5:33 PM TENDER documented in this encounter Plan of Treatment Not on filedocumented as of this encounter Visit Diagnoses Diagnosis Diabetes mellitus type II (HRC) - Primar y Type II or unspecified type diabetes dinora litus without mention of complication, not stated as uncontrolled documented in this encounter Care Teams Chief Librarian Music Department Relationship Specialty Start Date End Date Alisha Kimball MD PCP - General 07/08/05 [address] [place] [address] documented as of this encounter
--- OUTSIDE RECORDS SUMMARY | 2022-06-12 09:46 | XMS_ITS | Encounter Summary ---
:1955 Author Organization [employer] Address [address] [place] [address] Care Team Providers Name Role Phone Alisha Kimball MD Primary Care Provider Reason for Visit Reason Onset Date Comments QUESTIONS, GENERAL 10/03/2007 Encounter Details Date Type Department Care Team Description 10/03/2007 Telephone Special[facility] [address], QUESTIONS, GENERAL [facility] [address] [place] [address] [place] [address] [phone] (Wo rk) Social History Tobacco Use Types [...] filedocumented in this encounter Care Teams Dry Cans Back Tender Relationship Specialty Start Date End Date Alisha Kimball MD PCP - General 07/08/05 [address] [place] [address] documented as of this encounter
--- OUTSIDE RECORDS SUMMARY | 2022-06-12 09:46 | XMS_ITS | Encounter Summary ---
:1955 Author Organization [employer] Address [address] [address] Care Team Providers Name Role Phone Alisha Kimball MD Primary Care Provider Encounter Details Date Type Department Care Team Description 01/02/2008 Office Visit Specialty Center Kiah August H, OTR/L Mallet Finger (Primary [address] Dx) [address] 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 ICD-9-code: 736.1 Date of Onset: 06/02/07 Date of Surgery: not applicable Referring Physician: Jgiar Mcgarry V Order Date(s): 08/09/07 Date of initial evaluation/progress note(s): 08/17/2007 , 11/01/07, 12/13/07 Injury: Left Hand Dominance: Right CURRENT HOME PROGRAM : A/PROM, blocking, digisleeves, taped flexion, tendon glides VISIT NUMBER: 13 out of 13 PAIN: Intensity Level: Current /10 with stretch SUBJECTIVE Patient reports she is making progress slowly and she continues to push on her fingers. OBJECTIVE Job Spotter strength: right 39,44,43 left 24,22,25 3pt. Pinch: [...] Primary documented in this encounter Care Teams Cardiopulmonary Supervisor Relationship Specialty Start Date End Date Alisha Kimball MD PCP - General 07/08/05 [address] [place] [address] documented as of this encounter
--- OUTSIDE RECORDS SUMMARY | 2022-06-12 09:46 | XMS_ITS | Encounter Summary ---
:1955 Author Organization [facility] Address [address] [place] [address] Care Team Providers Name Role Phone Alisha Kimball MD Primary Care Provider Encounter Details Date Type Department Care Team Description 10/24/2011 Orders Only [facility] Diabetes mellitus type II [address] (HRC) [place] [address] Social History Tobacco Use Types [...] 8.1 (H) 4.3 - 6.1 % [facility] Comment: The usual A1C goal [...] Number [facility] [phone] [facility] [address] [phone] documented in this encounter Visit Diagnoses Diagnosis Diabetes mellitus type II (HRC) Type II or unspecified type diabetes dinora litus without mention of complication, not stated as uncontrolled documented in this encounter Care Teams In Store Demonstrator Relationship Specialty Start Date End Date Alisha Kimball MD PCP - General 07/08/05 [address] [place] [address] documented as of this encounter
--- OUTSIDE RECORDS SUMMARY | 2022-06-12 09:46 | XMS_ITS | Encounter Summary ---
:1955 Author Organization [facility] Address [address] [place] [address] Care Team Providers Name Role Phone Alisha Kimball MD Primary Care Provider Reason for Visit Reason Onset Date Comments RESULTS, X-RAY 04/02/2008 Encounter Details Date Type Department Care Team Description 04/02/2008 Telephone [facility] Alexis Frazier, PAMehreenC RESULTS, X-RAY [address] [place] [address] [place], [place] [address] (Wo rk) Social History Tobacco Use Types [...] filedocumented in this encounter Care Teams Truck Driver Teamster Relationship Specialty Start Date End Date Alisha Kimball MD PCP - General 07/08/05 [address] [place] [address] documented as of this encounter
--- OUTSIDE RECORDS SUMMARY | 2022-06-12 09:46 | XMS_ITS | Encounter Summary ---
:1955 Author Organization [facility] Address [address], [place] [address] Care Team Providers Name Role Phone Alisha Kimball MD Primary Care Provider Encounter Details Date Type Department Care Team Description 01/16/2008 Office Visit [facility] Kiah August H, OTR/L Mallet Finger (Primary [address] Dx) [address] [place] [phone] Social History Tobacco Use Types Packs/Day Years Used Date Smoking Tobacco: Never Alcohol Use Standard Drinks/Week Comments Not Asked 0 (1 standard drink = 0.6 oz pure alcoho l) Sex Assigned at Date Recorded Not on file documented as of this encounter Progress Notes Kiah August H - 01/16/2008 3:59 PM CDT HAND OCCUPATIONAL THERAPY DAILY NOTE 01/16/2008 Patient Name: Loc Velasco [id number] Payor: SELF [id number] Plan: SELF INSURED Product Type: *No Product [...] Instructed and issued pt. Theraputty for increased aircraft powertrain repairer/pinch strength. ASSESSMENT Pain: decreased Edema: decreased Range [...] Primary documented in this encounter Care Teams Executive Coordinator Relationship Specialty Start Date End Date Alisha Kimball MD PCP - General 07/08/05 [address] [place] [address] documented as of this encounter
--- OUTSIDE RECORDS SUMMARY | 2022-06-12 09:46 | XMS_ITS | Encounter Summary ---
:1955 Author Organization [facility] Address [address], [place] [address] Care Team Providers Name Role Phone Alisha Kimball MD Primary Care Provider Encounter Details Date Type Department Care Team Description 11/01/2007 Office Visit Specialty Center Kiah August H, OTR/L Mallet Finger (Primary [address] Dx) [address] 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
--- OUTSIDE RECORDS SUMMARY | 2022-06-12 09:46 | XMS_ITS | Encounter Summary ---
:1955 Author Organization [facility] Address [address] [place] [address] Care Team Providers Name Role Phone Alisha Kimball MD Primary Care Provider Reason for Referral Specialty Diagnoses / Procedures Referred By Contact Refer red To Contact Alisha Kimball MD [address] [place] [address] Referral ID Status Reason Start Date Expiration Date Visits Requ ested Visits Authorized Scheduling Instructions [facility] an [facility] was advised and you have not been contacted to schedule that appo intment within 3 business days, please call [phone] for assistance. Specialty Diagnoses / Procedures Referred By Contact Refer red To Contact Alisha Kimball MD [address] [place] [address] Referral ID Status Reason Start Date Expiration Date Visits Requ ested Visits Authorized Scheduling Instructions If an appointment with [facility] Fo ot and Ankle Surgery was advised and you have not been contacted to schedule that appo intment within 3 business days, please call [phone] for assistance. Reason for Visit Reason Comments ROUTINE HEALTH MAINTENANCE Encounter Details Date Type Department Care Team Description 04/28/2010 Office Visit [facility] Alisha Kimball, [facility] (Primary Dx); Practice Breast screening, unspecified; 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 Otherwise as above. ROS: A comprehensive review [...] reflexes are intact and symmetric. Left lateral mid-bird tender. No erythema, edema, increased warmth. CMS [...] Tobacco Status reviewed? (see History: Social-Substance) -YES diet attendant offered? -DECLINED. Aspirin taken daily? - [...] Results MAMMOGRAM SCREENING BILATERAL (07/21/2010 9:27 AM BLACK LEATHER TRIMMER) Anatomical Region Laterality Modality Breast Bilateral Mammography Specimen (Source) Anatomical Location Collection Method / Collectio n Time Received Time / Laterality Volume Narrative 07/22/2010 2:03 PM BLACK LEATHER TRIMMER BILATERAL FULL FIELD DIGITAL SCREENING MAMMOGRAM Performed [...] BONE DENSITY SPINE/HIP ROUTINE (05/15/2010 7:58 AM BLACK LEATHER TRIMMER) Anatomical Region Laterality Modality Lower Extremity, Spine, Hip, L-Spine Oth er Specimen (Source) Anatomical Location Collection Method / Collectio n Time Received Time / Laterality Volume Narrative 05/15/2010 8:11 AM BLACK LEATHER TRIMMER WHO Criteria for the diagnosis of osteoporosis: T-score >-1 Normal T-score between -1 and -2.5 Osteopenia T-score <-2.5 Osteoporosis Fracture risk: T-score -1 ?? 2 times increased ?-2 ?? 4 times incre ased ?-3 ?? 6 times incre ased *With previous fragility fracture, risk of subsequent fracture doubles again SCREENING FOR OSTEO, HOLD CALCIUM Bottle House Pumper and Model of Instrument: [employer] Demographics Age: 55 yr Gender: female Height [...] doubles again SCREENING FOR OSTEO, HOLD CALCIUM Bottle House Pumper and Model of Instrument: [employer] Demographics Age: 55 yr Gender: female Height [...] HRS FASTING (V77.1) (04/28/2010 8:57 AM CDT) [facility] Method Time Signature Glucose 134 (H) 70 - 100 [facility] mg/dl Hours Fasting 15 hours [facility] Specimen Anatomical Collection Method Collection Time Receive d Time (Source) Location / / Volume Laterality 04/28/2010 8:57 AM 0 9:03 CDT AM CDT Alisha Kimball MD LAB_1 Performing Organization Address City/[facility] Phon e Number [employer] [phone] [address] ALT (SGPT) (04/28/2010 8:57 AM CDT) athologist Signature ALT (SGPT) 57 0 - 69 U/L [facility] Specimen Anatomical Collection Method Collection Time Receive d Time (Source) Location / / Volume Laterality 04/28/2010 8:57 AM 0 9:03 CDT AM CDT Alisha Kimball MD LAB_1 Performing Organization Address City/[facility] Phon e Number [employer] [phone] [address] CREATININE / GFR (04/28/2010 8:57 AM CDT) Analysis Performed At Path logist Time Signature Creatinine 0.79 0.52 - [facility] 1.04 mg/dl GFR, Estimated >60.0 >60 [facility] ml/min/1.7 3m2 GFR, Est., If >60.0 >60 [facility] Black ml/min/1.7 3m2 Specimen Anatomical Collection Method Collection Time Receive d Time (Source) Location / / Volume Laterality 04/28/2010 8:57 AM 0 9:03 CDT AM CDT Alisha Kimball MD LAB_1 Performing Organization Address City/[facility]/ZIP Code Phon e Number [facility] [phone] [address] HEMOGRAM/PLTS (04/28/2010 8:57 AM CDT) athologist Signature WBC 7.0 4.0 - 11.0 [facility] k/ul RBC 5.06 4.0 - 5.2 [facility] M/ul Hemoglobin 14.9 12.0 - 16.0 [facility] g/dl HCT 45.1 36.0 - 46.0 [facility] % MCV 89.2 80 - 100 fl [facility] MCH 29.5 26 - 34 pg [facility] MCHC 33.1 32 - 36 [facility] g/dl RDW 13.2 11.5 - 14.5 [facility] % Platelets 263 150 - 450 [facility] k/ul Specimen Anatomical Collection Method Collection Time Receive d Time (Source) Location / / Volume Laterality 04/28/2010 8:57 AM 0 9:03 CDT AM CDT Alisha Kimball MD LAB_1 Performing Organization Address City/[facility]/ZIP Code Phon e Number [employer] [phone] [address] TSH, SENSITIVE (WITH REFLEX)[[id number]] - Clinics ONLY (04/28/2010 8:57 AM CDT) athologist Signature TSH, with 1.966 0.465 - [facility] Reflex 4.68 uIU/ml Specimen Anatomical Collection Method Collection Time Receive d Time (Source) Location / / Volume Laterality 04/28/2010 8:57 AM 0 9:03 CDT AM CDT Alisha Kimball MD LAB_1 Performing Organization Address City/[facility]/ZIP Code Phon e Number [employer] [phone] [address] (ABNORMAL) LIPID PANEL AND DIRECT LDL(IF NEEDED) (04/28/2010 8:57 AM CDT) [facility] gist Method Time Signature Cholesterol 241 (H) 0 - 199 [facility] mg/dl Triglyceride 202 (H) 0 - 149 [facility] mg/dl HDL 44 >40 mg/dl [facility] LDL, Calc. 157 (H) 0 - 129 [facility] mg/dl Hours Fasting 15 hours [facility] Specimen Anatomical Collection Method Collection Time Receive d Time (Source) Location / / Volume Laterality 04/28/2010 8:57 AM 0 9:03 CDT AM CDT Alisha Kimball MD LAB_1 Performing Organization Address City/State/ZIP Code Phon e Number [facility] [phone] [facility] [address] [address] documented in this encounter Visit [...] unspecified documented in this encounter Care Teams Vacuum Repairer Relationship Specialty Start Date End Date Alisha Kimball MD PCP - General 07/08/05 [address] [place] [address] documented as of this encounter
--- OUTSIDE RECORDS SUMMARY | 2022-06-12 09:46 | XMS_ITS | Encounter Summary ---
:1955 Author Organization [facility] Address [address] [place] [address] Care Team Providers Name Role Phone Alisha Kimball MD Primary Care Provider Reason for Visit Reason Comments EXAM,ROUTINE patient is having problems w ith her near vison, she currently wears no glasses Encounter Details Date Type Department Care Team Description 04/28/2010 Office Visit [facility] Lebron Alfaro, Examination of eyes and visi on (Primary Dx); [address] OD Myopia; [place] [address] Presbyopia [phone] Social History Tobacco Use Types Packs/Day Years Used Date Smoking Tobacco: Never Alcohol Use Standard Drinks/Week Comments Not Asked 0 (1 standard drink = 0.6 oz pure alcoho l) Sex Assigned at Date Recorded Not on file documented as of this encounter Patient Instructions Patient InstructionsLebron Alfaro, OD - 04/28/2010 10:46 AM CDT [facility]. Many tests [...] the clinic in the future? Appointment Center: [phone] Eye Dept: [phone] Online Services: [email or web address] For after hours care, call the CareLine at [phone] or . We look forward to taking [...] Presbyopia documented in this encounter Care Teams Qa Developer Relationship Specialty Start Date End Date Alisha Kimball MD PCP - General 07/08/05 [address] [place] [address] documented as of this encounter
--- OUTSIDE RECORDS SUMMARY | 2022-06-12 09:46 | XMS_ITS | Encounter Summary ---
:1955 Author Organization [facility] Address [address] [place] [address] Care Team Providers Name Role Phone Alisha Kimball MD Primary Care Provider Encounter Details Date Type Department Care Team Description 03/29/2008 Imaging [facility] [address] [place] [address] Social History Tobacco Use Types [...] limb documented in this encounter Care Teams Project Management Relationship Specialty Start Date End Date Alisha Kimball MD PCP - General 07/08/05 [address] [place] [address] documented as of this encounter
--- OUTSIDE RECORDS SUMMARY | 2022-06-12 09:46 | XMS_ITS | Encounter Summary ---
:1955 Author Organization [facility] Address [address] [place] [address] Care Team Providers Name Role Phone Alisha Kimball MD Primary Care Provider Reason for Visit Reason Comments LAB RESULTS glucose Encounter Details Date Type Department Care Team Description 04/28/2010 Telephone [facility] Alisha Kimball MD LAB RESULTS (glucose) Practice [address] [place] [address] [place], [place] [phone] Social History Tobacco Use Types Packs/Day Years [...] 8 HRS FASTING (V77.1) (05/14/2010 7:35 AM HAT IRONER) Patholo gist Method Time Signature Glucose 106 (H) 70 - 100 [facility] mg/dl Hours Fasting 12 hours [facility] Specimen Anatomical Collection Method Collection Time Receive d Time (Source) Location / / Volume Laterality 05/14/2010 7:35 AM 0 7:46 HAT IRONER AM HAT IRONER Alisha Kimball MD LAB_1 Performing Organization Address City/[facility] Phon e Number [facility] [employer] [phone] [facility] [address] [place] [address] (ABNORMAL) HGB A1C (05/14/2010 7:35 AM HAT IRONER) athologist Signature Hgb A1c 7.4 (H) 4.3 - 6.1 % [facility] Comment: The usual A1C goal for people with diabe jaci, age 18-75, is < 7.0%. Physicians may recommend a higher or lo wer goal for specific individuals. Specimen Anatomical Collection Method Collection Time Receive d Time (Source) Location / / Volume Laterality 05/14/2010 7:35 AM 0 7:46 HAT IRONER AM HAT IRONER Alisha Kimball MD LAB_1 Performing Organization Address City/[facility] Phon e Number [facility] [employer] [phone] [facility] [address] [place] [address] documented in this encounter Visit Diagnoses Diagnosis Hyperglycemia - Primary Other abnormal glucose documented in this encounter Care Teams Sole Edge Inker Machine Relationship Specialty Start Date End Date Alisha Kimball MD PCP - General 07/08/[address] [place] [address] documented as of this encounter
--- OUTSIDE RECORDS SUMMARY | 2022-06-12 09:46 | XMS_ITS | Encounter Summary ---
:1955 Author Organization [facility] Address [address], [place] [address] Care Team Providers Name Role Phone Alisha Kimball MD Primary Care Provider Encounter Details Date Type Department Care Team Description 01/30/2008 Office Visit Specialty Center Kiah August H, OTR/L Mallet Finger (Primary [address] Dx) [address] [place] [phone] Social History Tobacco Use Types Packs/Day Years Used Date Smoking Tobacco: Never Alcohol Use Standard Drinks/Week Comments Not Asked 0 (1 standard drink = 0.6 oz pure alcoho l) Sex Assigned at Date Recorded Not on file documented as of this encounter Progress Notes Kiah August H - 01/30/2008 3:33 PM CDT HAND OCCUPATIONAL THERAPY DAILY/DISCHARGE NOTE 01/30/2008 Patient Name: Loc Velasco [id number] Payor: SELF [id number] Plan: SELF INSURED Product Type: *No Product [...] 9-44 ring PIP 0-94 DIP 0-51 Left siebel developer strength 24,35,26 Left 3pt. Pinch 10,12,11 TREATMENT [...] Primary documented in this encounter Care Teams Board Setter Relationship Specialty Start Date End Date Alisha Kimball MD PCP - General 07/08/05 [address] [place] [address] documented as of this encounter
--- OUTSIDE RECORDS SUMMARY | 2022-06-12 09:46 | XMS_ITS | Encounter Summary ---
:1955 Author Organization [facility] Address [address] [place] [address] Care Team Providers Name Role Phone Alisha Kimball MD Primary Care Provider Encounter Details Date Type Department Care Team Description 05/15/2010 Imaging [facility] [address] Fami ly history of Bone Density osteoporosis [address] [place] [address] Social History Tobacco Use Types [...] Family history of Results for this SPINE/HIP COMPRESSOR HOUSE OPERATOR osteoporosis procedure are i n the results section. documented in this encounter Results DEXA BONE DENSITY SPINE/HIP ROUTINE (05/15/2010 7:58 AM COMPRESSOR HOUSE OPERATOR) Anatomical Region Laterality Modality Lower Extremity, Spine, Hip, L-Spine Oth er Specimen (Source) Anatomical Location Collection Method / Collectio n Time Received Time / Laterality Volume Narrative 05/15/2010 8:11 AM COMPRESSOR HOUSE OPERATOR WHO Criteria for the diagnosis of osteoporosis: T-score >-1 Normal T-score between -1 and -2.5 Osteopenia T-score <-2.5 Osteoporosis Fracture risk: T-score -1 ?? 2 times increased ?-2 ?? 4 times incre ased ?-3 ?? 6 times incre ased *With previous fragility fracture, risk of subsequent fracture doubles again SCREENING FOR OSTEO, HOLD CALCIUM Gis Instructor and Model of Instrument: [employer] Demographics Age: 55 yr Gender: female Height [...] Alcohol 3units or more per day (on Hire Space):No Currently smoking:No If no, smoked for more [...] doubles again SCREENING FOR OSTEO, HOLD CALCIUM Gis Instructor and Model of Instrument: [employer] Demographics Age: 55 yr Gender: female Height [...] Alcohol 3units or more per day (on Hire Space):No Currently smoking:No If no, smoked for more [...] osteoporosis documented in this encounter Care Teams Splitting Machine Feeder Relationship Specialty Start Date End Date Alisha Kimball MD PCP - General 07/08/[address] [place] [address] documented as of this encounter
--- OUTSIDE RECORDS SUMMARY | 2022-06-12 09:46 | XMS_ITS | Encounter Summary ---
:1955 Author Organization [facility] [employer] [employer] Address [address], [place] [address] Care Team Providers Name Role Phone Alisha Kimball MD Primary Care Provider Encounter Details Date Type Department Care Team Description 12/07/2007 Office Visit Specialty Center Kiah August H, OTR/L Mallet Finger (Primary [address] Dx) [address] [place] [phone] Social History Tobacco Use Types Packs/Day Years Used Date Smoking Tobacco: Never Alcohol Use Standard Drinks/Week Comments Not Asked 0 (1 standard drink = 0.6 oz pure alcoho l) Sex Assigned at Date Recorded Not on file documented as of this encounter Progress Notes Kiah August H - 12/07/2007 4:16 PM CDT HAND OCCUPATIONAL THERAPY DAILY NOTE 12/07/2007 Patient Name: Loc Velasco [id number] Payor: [id number] [id number] Plan: SELF INSURED Product Type: *No Product [...] Primary documented in this encounter Care Teams Supervisor Floor Assembly Relationship Specialty Start Date End Date Alisha Kimball MD PCP - General 07/08/05 [address] [place] [address] documented as of this encounter
--- OUTSIDE RECORDS SUMMARY | 2022-06-12 09:46 | XMS_ITS | Encounter Summary ---
:1955 Author Organization [facility] Address [address], [place] [address] Care Team Providers Name Role Phone Alisha Kimball MD Primary Care Provider Reason for Referral Specialty Diagnoses / Procedures Referred By Contact Refer red To Contact Alexis Ponce PA -C [address], [place] [address] Referral ID Status Reason Start Date Expiration Date Visits Requ ested Visits Authorized Scheduling Instructions If an appointment with [facility] Fo ot and Ankle Surgery was advised and you have not been contacted to schedule that appo intment within 3 business days, please call [phone] for assistance. Reason for Visit Reason Comments ANKLE PAIN Lt ankle into foot pain x 2 weeks swollen by end of day may have stepped off stairs wrong. Unable to sleep due to pain Encounter Details Date Type Department Care Team Description 03/29/2008 Office Visit [facility] Alexis Ponce Foot Pa in (Primary Dx) Practice [facility] [address] [address] [place], [place] [phone] Social History Tobacco Use Types Packs/Day Years [...] Body Mass Index 30.11 08/09/2007 4:16 PM AGING DEPARTMENT SUPERVISOR documented in this encounter Patient Instructions [...] couple times daily. Follow up with the sanitary aide. documented in this encounter Progress Notes Alexis [...] limb documented in this encounter Care Teams Skate Maker Relationship Specialty Start Date End Date Alisha Kimball MD PCP - General 07/08/05 [address] [place] [address] documented as of this encounter
--- OUTSIDE RECORDS SUMMARY | 2022-06-12 09:46 | XMS_ITS | Encounter Summary ---
:1955 Author Organization [facility] Address [address] [place] [address] Care Team Providers Name Role Phone Alisha Kimball MD Primary Care Provider Encounter Details Date Type Department Care Team Description 05/14/2010 Orders Only [facility] Hyperglycemia [address] [place] [address] Social History Tobacco Use [...] 05/14/2010 7:35 AM Hyperglycemia Results for this MAT GAUGER procedure are i n the results section. GLUCOSE - FASTING > Routine 05/14/2010 7:35 AM Hyperglycemia R esults for this 8 HRS FASTING MAT GAUGER procedure are in the results section. documented in this encounter Results (ABNORMAL) GLUCOSE - FASTING > 8 HRS FASTING (V77.1) (05/14/2010 7:35 AM MAT GAUGER) [facility] Method Time Signature Glucose 106 (H) 70 - 100 [facility] mg/dl Hours Fasting 12 hours [facility] Specimen Anatomical Collection Method Collection Time Receive d Time (Source) Location / / Volume Laterality 05/14/2010 7:35 AM 0 7:46 MAT GAUGER AM MAT GAUGER Alisha Kimball MD LAB_1 Performing Organization Address City/State/ZIP Code Phon e Number [facility] [phone] [address] (ABNORMAL) HGB A1C (05/14/2010 7:35 AM MAT GAUGER) athologist Signature Hgb A1c 7.4 (H) 4.3 - 6.1 % [facility] Comment: The usual A1C goal for people with diabe jaci, age 18-75, is < 7.0%. Physicians may recommend a higher or lo wer goal for specific individuals. Specimen Anatomical Collection Method Collection Time Receive d Time (Source) Location / / Volume Laterality 05/14/2010 7:35 AM 0 7:46 MAT GAUGER AM MAT GAUGER Alisha Kimball MD LAB_1 Performing Organization Address City/State/ZIP Code Phon e Number [facility] [phone] [address] documented in this encounter Visit Diagnoses Diagnosis Hyperglycemia Other abnormal glucose documented in this encounter Care Teams Pipe Insulator Helper Relationship Specialty Start Date End Date Alisha Kimball MD PCP - General 07/08/05 [address] [place] [address] documented as of this encounter
--- OUTSIDE RECORDS SUMMARY | 2022-06-12 09:47 | XMS_ITS | Encounter Summary ---
:1955 Author Organization [facility] Address [address] [place] [address] Care Team Providers Name Role Phone Miky Sultana MD Primary Care Provider Encounter Details Date Type Department Care Team Description 02/25/2005 Notes/Orders [facility] Alisha Kimball, URINARY FREQUENCY; Practice ELEV BL PRES W/O HYPERTN [address] [facility] [address] [place] [address] [place], [place] [phone] Social History Tobacco Use Types Packs/Day Years [...] Signature Anion Gap 8 7 - 17 [facility] (calc.) mmol/L Specimen Anatomical Collection Method Collection Time Receive d Time (Source) Location / / Volume Laterality 02/25/2005 2:35 PM 5 2:36 CDT PM CDT Alisha Kimball MD LAB_1 Performing Organization Address City/State/ZIP Code Phon e Number [facility] [phone] [facility] [address] [place] [address] HEMOGRAM/PLTS (02/25/2005 2:35 PM CDT) athologist Signature WBC 8.5 4.0 - 11.0 [facility] k/ul RBC 4.58 4.0 - 5.2 [facility] M/ul Hemoglobin 13.9 12.0 - 16.0 [facility] g/dl HCT 40.0 36.0 - 46.0 [facility] % MCV 87.1 80 - 100 fl [facility] MCH 30.3 26 - 34 pg [facility] MCHC 34.8 32 - 36 % [facility] RDW 13.1 11.5 - 14.5 [facility] % Platelets 286 150 - 450 [facility] k/ul Specimen Anatomical Collection Method Collection Time Receive d Time (Source) Location / / Volume Laterality 02/25/2005 2:35 PM 5 2:36 CDT PM CDT Alisha Kimball MD LAB_1 Performing Organization Address [facility] Phon e Number [facility] [phone] [address] SODIUM (02/25/2005 2:35 PM CDT) athologist Signature Sodium 140 135 - 145 [facility] mmol/L Specimen Anatomical Collection Method Collection Time Receive d Time (Source) Location / / Volume Laterality 02/25/2005 2:35 PM 5 2:36 CDT PM CDT Alisha Kimball MD LAB_1 Performing Organization Address [facility] Phon e Number [facility] [phone] [phone] POTASSIUM (02/25/2005 2:35 PM CDT) athologist Signature Potassium 4.2 3.5 - 5.3 [facility] mmol/L Specimen Anatomical Collection Method Collection Time Receive d Time (Source) Location / / Volume Laterality 02/25/2005 2:35 PM 5 2:36 CDT PM CDT Alisha Kimball MD LAB_1 Performing Organization Address [facility]/State/ZIP Code Phon e Number [facility] [phone] [facility] [address] [address] GLUCOSE - RANDOM < 8HR FASTING (V77.1) (02/25/2005 2:35 PM CDT) athologist Signature Glucose 111 65 - 115 [facility] mg/dl Hours Fasting 2 hours [facility] Specimen Anatomical Collection Method Collection Time Receive d Time (Source) Location / / Volume Laterality 02/25/2005 2:35 PM 5 2:36 CDT PM CDT Alisha Kimball MD LAB_1 Performing Organization Address [facility] Phon e Number [facility] [phone] [facility] [address] [place] [phone] CO2 (02/25/2005 2:35 PM CDT) athologist Signature CO2 28 22 - 31 [facility] mmol/L Specimen Anatomical Collection Method Collection Time Receive d Time (Source) Location / / Volume Laterality 02/25/2005 2:35 PM 5 2:36 CDT PM CDT Alisha Kimball MD LAB_1 Performing Organization Address City/[facility] Phon e Number [facility] [phone] [facility] [address] [place] [phone] CREATININE / GFR (02/25/2005 2:35 PM [...] Organization Address City/State/ZIP Code Phon e Number [facility] [phone] [facility] [address] [phone] CHLORIDE (02/25/2005 2:35 PM CDT) athologist Signature Chloride 104 95 - 105 [facility] mmol/L Specimen Anatomical Collection Method Collection Time Receive d Time (Source) Location / / Volume Laterality 02/25/2005 2:35 PM 200 5 2:36 CDT PM CDT Alisha Kimball MD LAB_1 Performing Organization Address City/[facility]/ZIP Code Phon e Number [facility] [phone] [facility] [address] [place] [phone] CALCIUM (02/25/2005 2:35 PM CDT) athologist Signature Calcium 9.5 8.2 - 10.0 [facility] mg/dl Specimen Anatomical Collection Method Collection Time Receive d Time (Source) Location / / Volume Laterality 02/25/2005 2:35 PM 200 5 2:36 CDT PM CDT Alisha Kimball MD LAB_1 Performing Organization Address City/[facility]/ZIP Code Phon e Number [facility] [phone] [facility] [address] [place] [phone] BUN (02/25/2005 2:35 PM CDT) athologist Signature BUN 17 10 - 26 [facility] mg/dl Specimen Anatomical Collection Method Collection Time Receive d Time (Source) Location / / Volume Laterality 02/25/2005 2:35 PM 200 5 2:36 CDT PM CDT Alisha Kimball MD LAB_1 Performing Organization Address City/[facility]/ZIP Code Phon e Number [facility] [phone] [facility] [address] [place] [phone] ALT (SGPT) (02/25/2005 2:35 PM CDT) athologist Signature ALT (SGPT) 34 0 - 55 U/L [facility] Specimen Anatomical Collection Method Collection Time Receive d Time (Source) Location / / Volume Laterality 02/25/2005 2:35 PM 5 2:36 CDT PM CDT Alisha Kimball MD LAB_1 Performing Organization Address [facility] Phon e Number [facility] [employer] [phone] [facility] [address] [place] [phone] AST (02/25/2005 2:35 PM CDT) athologist Signature AST (SGOT) 16 <45 U/L [facility] Specimen Anatomical Collection Method Collection Time Receive d Time (Source) Location / / Volume Laterality 02/25/2005 2:35 PM 5 2:36 CDT PM CDT Alisha Kimball MD LAB_1 Performing Organization Address [facility] Phon e Number [facility] [phone] [address] URINE CULTURE IF (02/25/2005 1:40 PM CDT) [facility] gist Method Time Signature Urine Cult If UC Not [facility] Indicated Specimen Anatomical Collection Method Collection Time Receive d Time (Source) Location / / Volume Laterality 02/25/2005 1:40 PM 5 1:41 CDT PM CDT Alisha Kimball MD LAB_1 Performing Organization Address [facility] Phon e Number [employer] [phone] [address] UA MICRO IF (02/25/2005 1:40 PM CDT) [facility] gist Method Time Signature Appr [...] Number [facility] [phone] [facility] [address] [place] [phone] documented in this encounter Visit Diagnoses Diagnosis Urinary frequency Elevated blood pressure reading without diagnosis of hypertension documented in this encounter Care Teams Auto Clutch Specialist Relationship Specialty Start Date End Date Miky Sultana MD PCP - General 09/21/01 07/07/[address] [place] [address] [place] [address] documented as of this encounter
--- OUTSIDE RECORDS SUMMARY | 2022-06-12 09:47 | XMS_ITS | Encounter Summary ---
:1955 Author Organization [facility] Address [address] [place] [address] Care Team Providers Name Role Phone Alisha Kimball MD Primary Care Provider Encounter Details Date Type Department Care Team Description 01/26/2006 Correspondence [facility] govind Colonoscopy Gastroenterology MD Malik Informed Consent [address] [address] RADIO JUAQUIN [place] [address] [address] [address] [place], [place] [phone] Social History Tobacco Use Types Packs/Day Years [...] on filedocumented in this encounter Care Teams Pad Extraction Tender Relationship Specialty Start Date End Date Alisha Kimball MD PCP - General 07/08/[address] [place], [place] [phone] documented as of this encounter
--- OUTSIDE RECORDS SUMMARY | 2022-06-12 09:47 | XMS_ITS | Encounter Summary ---
:1955 Author Organization [facility] Address [address], [place] [address] Care Team Providers Name Role Phone Miky [...] on filedocumented in this encounter Care Teams Casket Inspector Relationship Specialty Start Date End Date Miky Sultana MD PCP - General 09/21/01 07/07/05 [address] [place] [address] documented as of this encounter
--- OUTSIDE RECORDS SUMMARY | 2022-06-12 09:47 | XMS_ITS | Encounter Summary ---
:1955 Author Organization [facility] Address [address] [facility] [place] [address] Care Team Providers Name Role Phone Miky Sultana MD Primary Care Provider Encounter Details Date Type Department Care Team Description 11/20/2002 Office Visit [facility] Miky Sultana MD TENOSYNOVITIS Practice [address] [facility] FOOT/ANKLE [address] [place] [address] [place] [address] Social History Tobacco Use Types Packs/Day Years [...] Tobacco Status reviewed? (see History Social-Substance) -YES driveway attendant offered? -NOT APPLICABLE. Aspirin taken daily? -NO BP was taken on the RIGHT arm. Large cuff used? -NO Health Education given? -NO. Contact phone number [phone](home) [phone] (work), alternate phone number . James Hudson, [...] ankle documented in this encounter Care Teams Garage Door Hanger Relationship Specialty Start Date End Date Miky Sultana MD PCP - General 09/21/01 07/07/05 [address] [place] [address] documented as of this encounter
--- OUTSIDE RECORDS SUMMARY | 2022-06-12 09:47 | XMS_ITS | Encounter Summary ---
:1955 Author Organization [facility] Address [address] [place] [address] Care Team Providers Name Role Phone Carroll Avalos MD Primary Care Provider Reason for Visit Reason Comments LAB RESULTS positive parapertussis DNA Encounter Details Date Type Department Care Team Description 07/09/2005 Telephone [facility] Carroll Avalos, LAB RESU LTS (positive Practice parapertussis DNA) [address] [place] [address] [place], [place] [phone] Social History Tobacco Use Types Packs/Day Years Used Date Smoking Tobacco: Never Alcohol Use Standard Drinks/Week Comments Not Asked 0 (1 standard drink = 0.6 oz pure alcoho l) Sex Assigned at Date Recorded Not on file documented as of this encounter Nursing Notes 07/09/2005 11:59 PM PROFESSOR OF MUSICOLOGY >> CARROLL AVALOS Mon Jul 20, 2005 [...] she need furthe r treatment? Pt. uses [facility]. Has allergy to Sulfa. >> KRYSTYNA GARCÍA Fri Jul 17, 2005 10:57 AM 10:50 AM [facility] again-see encounter note. Pt Tx on visit. Krystyna García RN >> CARROLL AVALOS Gloria Jul 09, 2005 1:21 PM Called Jackie at [facility]. She recommended treating the patient but no prophylaxi s for contacts. Unable to reach the patient and message left at home to call back. Office number lety conroy is a fax number. Carroll Avalos MD documented in this encounter Plan of Treatment Not on filedocumented as of this encounter Visit Diagnoses Not on filedocumented in this encounter Care Teams Controls Design Engineer Relationship Specialty Start Date End Date Carroll Avalos MD PCP - General 07/08/05 [address] [place] [address] documented as of this encounter
--- OUTSIDE RECORDS SUMMARY | 2022-06-12 09:47 | XMS_ITS | Encounter Summary ---
:1955 Author Organization [facility] Address [address], [place] [address] Care Team Providers Name Role Phone Alisha Kimball MD Primary Care Provider Reason for Visit Reason Comments INJURY, HAND hit today on door Right Encounter Details Date Type Department Care Team Description 01/12/2007 Office Visit [facility] Wrist Injury (Primary Medicine R, Dx) [address] [facility] [address] [place] [address] [place] [address] [phone] Social History Tobacco Use Types Packs/Day Years [...] wrist documented in this encounter Care Teams Junior Project Manager Relationship Specialty Start Date End Date Alisha Kimball MD PCP - General 07/08/05 [address] [place] [address] documented as of this encounter
--- OUTSIDE RECORDS SUMMARY | 2022-06-12 09:47 | XMS_ITS | Encounter Summary ---
:1955 Author Organization [facility] Address [address] [place] [address] Care Team Providers Name Role Phone Miky Sultana MD Primary Care Provider Reason for Visit Reason Comments INFECTION, URINARY TRACT Encounter Details Date Type Department Care Team Description 02/25/2005 Office Visit [facility] Alisha Kimball, URINARY FREQUENCY (Primary Dx); Practice NONSPECIF SKIN ERUPT NEC; [address] ELEV [address] PRES [place] [address] [place] [address] [phone] Social History Tobacco Use Types Packs/Day Years [...] is my first visit with this 50 -ntih-zsb-skxhmn seen today primarily for evaluation of some [...] trial of Nystatin cream bid layered with hiok-wlj-inybnjz 1% cortisone cream. She is counseled that [...] may even need to use a chair springer after showering. 2. Hypertension. She tells me her blood pressure, overall, has been increasing along with her weight. We reviewed her chart today. There is a family history of hypertension in both parents. Her father also had an OH. We discussed medications. I recommended first doing some screening lab work. See orders. If those results are normal, I will contact her to get her started on some blood pressure medication. A cc: documented in this encounter Plan of Treatment Not on filedocumented as of this encounter Results HEMOGRAM/PLTS (02/25/2005 2:35 PM CDT) athologist Signature WBC 8.5 4.0 - 11.0 [facility] k/ul RBC 4.58 4.0 - 5.2 [facility] M/ul Hemoglobin 13.9 12.0 - 16.0 [facility] g/dl HCT 40.0 36.0 - 46.0 [facility] % MCV 87.1 80 - 100 fl [facility] MCH 30.3 26 - 34 pg [facility] MCHC 34.8 32 - 36 % [facility] RDW 13.1 11.5 - 14.5 [facility] % Platelets 286 150 - 450 [facility] k/ul Specimen Anatomical Collection Method Collection Time Receive d Time (Source) Location / / Volume Laterality 02/25/2005 2:35 PM 5 2:36 CDT PM CDT Alisha Kimball MD LAB_1 Performing Organization Address City/[facility] Phon e Number [facility] [phone] [phone] SODIUM (02/25/2005 2:35 PM CDT) athologist Signature Sodium 140 135 - 145 [facility] mmol/L Specimen Anatomical Collection Method Collection Time Receive d Time (Source) Location / / Volume Laterality 02/25/2005 2:35 PM 5 2:36 CDT PM CDT Alisha Kimball MD LAB_1 Performing Organization Address City/[facility] Phon e Number [facility] [phone] [phone] POTASSIUM (02/25/2005 2:35 PM CDT) athologist Signature Potassium 4.2 3.5 - 5.3 [facility] mmol/L Specimen Anatomical Collection Method Collection Time Receive d Time (Source) Location / / Volume Laterality 02/25/2005 2:35 PM 5 2:36 CDT PM CDT Alisha Kimball MD LAB_1 Performing Organization Address City/State/ZIP Code Phon e Number [facility] [phone] [facility] [address] [place] [phone] GLUCOSE - RANDOM < 8HR FASTING (V77.1) (02/25/2005 2:35 PM CDT) athologist Signature Glucose 111 65 - 115 [facility] mg/dl Hours Fasting 2 hours [facility] Specimen Anatomical Collection Method Collection Time Receive d Time (Source) Location / / Volume Laterality 02/25/2005 2:35 PM 5 2:36 CDT PM CDT Alisha Kimball MD LAB_1 Performing Organization Address City/[facility] Code Phon e Number [facility] [phone] [facility] [address] [place] [phone] CO2 (02/25/2005 2:35 PM CDT) athologist Signature CO2 28 22 - 31 [facility] mmol/L Specimen Anatomical Collection Method Collection Time Receive d Time (Source) Location / / Volume Laterality 02/25/2005 2:35 PM 5 2:36 CDT PM CDT Alisha Kimball MD LAB_1 Performing Organization Address City/[facility] Phon e Number [facility] [phone] [facility] [address] [place] [phone] CREATININE / GFR (02/25/2005 2:35 PM [...] City/[facility]/ZIP Code Phon e Number [facility] [phone] [facility] [address] [place] [phone] CHLORIDE (02/25/2005 2:35 PM CDT) P athologist Signature Chloride 104 95 - 105 [facility] mmol/L Specimen Anatomical Collection Method Collection Time Receive d Time (Source) Location / / Volume Laterality 02/25/2005 2:35 PM 5 2:36 CDT PM CDT Alisha Kimball MD LAB_1 Performing Organization Address [facility] Phon e Number [facility] [phone] [facility] [address] [place] [phone] CALCIUM (02/25/2005 2:35 PM CDT) P athologist Signature Calcium 9.5 8.2 - 10.0 [facility] mg/dl Specimen Anatomical Collection Method Collection Time Receive d Time (Source) Location / / Volume Laterality 02/25/2005 2:35 PM 5 2:36 CDT PM CDT Alisha Kimball MD LAB_1 Performing Organization Address [facility] Phon e Number [facility] [phone] [facility] [address] [place] [phone] BUN (02/25/2005 2:35 PM CDT) P athologist Signature BUN 17 10 - 26 [facility] mg/dl Specimen Anatomical Collection Method Collection Time Receive d Time (Source) Location / / Volume Laterality 02/25/2005 2:35 PM 5 2:36 CDT PM CDT Alisha Kimball MD LAB_1 Performing Organization Address City/[facility]/ZIP Code Phon e Number [facility] [phone] [facility] [address] [place] [phone] ALT (SGPT) (02/25/2005 2:35 PM CDT) athologist Signature ALT (SGPT) 34 0 - 55 U/L [facility] Specimen Anatomical Collection Method Collection Time Receive d Time (Source) Location / / Volume Laterality 02/25/2005 2:35 PM 5 2:36 CDT PM CDT Alisha Kimball MD LAB_1 Performing Organization Address City/[facility] Phon e Number [facility] [phone] [facility] [address] [place] [phone] AST (02/25/2005 2:35 PM CDT) athologist Signature AST (SGOT) 16 <45 U/L [facility] Specimen Anatomical Collection Method Collection Time Receive d Time (Source) Location / / Volume Laterality 02/25/2005 2:35 PM 5 2:36 CDT PM CDT Alisha Kimball MD LAB_1 Performing Organization Address City/[facility] Phon e Number [facility] [phone] [phone] URINE CULTURE IF (02/25/2005 1:40 PM CDT) [facility] gist Method Time Signature Urine Cult If UC Not [facility] Indicated Specimen Anatomical Collection Method Collection Time Receive d Time (Source) Location / / Volume Laterality 02/25/2005 1:40 PM 5 1:41 CDT PM CDT Alisha Kimball MD LAB_1 Performing Organization Address [facility] Phon e Number [facility] [phone] [phone] UA MICRO IF (02/25/2005 1:40 PM CDT) [facility] gist Method Time Signature Appr Yellow [facility] Appr Clear [facility] Sp Gr 1.025 1.005 [...] Address City/State/ZIP Code Phon e Number [facility] [phone] [facility] [address] [phone] documented in this encounter Visit Diagnoses Diagnosis Urinary frequency - Primary Rash and other nonspecific skin eruption Elevated blood pressure reading without diagnosis of hypertension documented in this encounter Care Teams Shake Maker Relationship Specialty Start Date End Date Miky Sultana MD PCP - General 09/21/01 07/07/05 [address] [place] [address] documented as of this encounter
--- OUTSIDE RECORDS SUMMARY | 2022-06-12 09:47 | XMS_ITS | Encounter Summary ---
:1955 Author Organization [facility] Address [address] [place] [address] Care Team Providers Name Role Phone Alisha [...] on filedocumented in this encounter Care Teams Stapler Machine Relationship Specialty Start Date End Date Alisha Kimball MD PCP - General 07/08/[address] [place], [place] [phone] documented as of this encounter
--- OUTSIDE RECORDS SUMMARY | 2022-06-12 09:47 | XMS_ITS | Encounter Summary ---
:1955 Author Organization [facility] Address [address] [place] [address] Care Team Providers Name Role Phone Alisha Kimball MD Primary Care Provider Encounter Details Date Type Department Care Team Description 01/01/2006 Notes/Orders [facility] Linda Roberts, Gastroenterology NEON SIGN MAK[address] [id number] Social History Tobacco Use Types Packs/Day Years Used Date Smoking Tobacco: Never Alcohol Use Standard Drinks/Week Comments Not Asked 0 (1 standard drink = 0.6 oz pure alcoho l) Sex Assigned at Date Recorded Not on file documented as of this encounter Plan of Treatment Not on filedocumented as of this encounter Visit Diagnoses Not on filedocumented in this encounter Care Teams Zipper Setter Lockstitch Relationship Specialty Start Date End Date Alisha Kimball MD PCP - General 07/08/[address] [place], [place] [phone] documented as of this encounter
--- OUTSIDE RECORDS SUMMARY | 2022-06-12 09:47 | XMS_ITS | Encounter Summary ---
:1955 Author Organization [facility] Address [address] [place] [address] Care Team Providers Name Role Phone Alisha Kimball MD Primary Care Provider Encounter Details Date Type Department Care Team Description 01/08/2006 Orders Only [facility] Mammogram I, Sp S CREENING MAMM-MAILG Mammography NEOPL NEC (Primary [address]) [place], [place] [id number] Social History Tobacco Use Types Packs/Day Years [...] Primary documented in this encounter Care Teams Peripheral Edp Equipment Operator Relationship Specialty Start Date End Date Alisha Kimball MD PCP - General 07/08/05 [address] [place] [address] documented as of this encounter
--- OUTSIDE RECORDS SUMMARY | 2022-06-12 09:47 | XMS_ITS | Encounter Summary ---
:1955 Author Organization [facility] Address [address] [address] Care Team Providers Name Role Phone Alisha Kimball MD Primary Care Provider Encounter Details Date Type Department Care Team Description 08/17/2007 Office Visit [facility]ty [facility] Arlene Hensley Ma llet Finger (Primary [address] [facility] OTR/L Dx) 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 Patient [...] to allow future independence with self cares. SENIOR LIVING GOALS: to be completed in 12 weeks. [...] hand therapy evaluation can be directed to [phone]. MINUTES SEEN: 50 NEXT TREATMENT: Remold splints into increased extension. Review Home Exercise Program. Determine range of motion gains. Assess frequency needs. Nicolasa Hensley, OTR, CHT, MLD Treatment Charges: Evaluations: O.T. Evaluation Qty: 1 Treatment: Selfcare Activities: Quantity: 1 Orthotic/Prosthetic (mgmt/training/assess/fit) Quantity: 1 Custom Splints: Finger splint - Quantity: 1 NT SOLUTIONS MANAGER documented in this encounter Plan of Treatment Not on filedocumented as of this encounter Visit Diagnoses Diagnosis Mallet finger - Primary documented in this encounter Care Teams Meal Cook Relationship Specialty Start Date End Date Alisha Kimball MD PCP - General 07/08/[address] [place] [address] documented as of this encounter
--- OUTSIDE RECORDS SUMMARY | 2022-06-12 09:47 | XMS_ITS | Encounter Summary ---
:1955 Author Organization [facility] Address [address] [place] [address] Care Team Providers Name Role Phone Alisha Kimball MD Primary Care Provider Reason for Referral Specialty Diagnoses / Procedures Referred By Contact Refer red To Contact Mauro Keyes MD [address] [place] [address] Referral ID Status Reason Start Date Expiration Date Visits Requ ested Visits Authorized Specialty Diagnoses / Procedures Referred By Contact Refer red To Contact Mauro Keyes MD [address] [place] [address] Referral ID Status Reason Start Date Expiration Date Visits Requ ested Visits Authorized Reason for Visit Reason Comments RASH also cut on leg in Jul. Encounter Details Date Type Department Care Team Description 11/17/2005 Office Visit [facility] Mauro Keyes F SKIN ERUPT NEC (Primary Dx); Timbo Amos MD SCREENING MAMM-MAILG NEOPL NEC; [address] 50 PREVENTIVE [place] [address] [place] [address] [phone] Social History Tobacco Use Types Packs/Day Years [...] screening mammogram Routine [facility] Routine general medical examination at [facility] care facility documented in this encounter Care Teams Cargo Vessel Stewardess Relationship Specialty Start Date End Date Alisha Kimball MD PCP - General 07/08/05 [address] [place] [address] documented as of this encounter
--- OUTSIDE RECORDS SUMMARY | 2022-06-12 09:47 | XMS_ITS | Encounter Summary ---
:1955 Author Organization [facility] Address [address] [place] [address] Care Team Providers Name Role Phone Alisha iKmball MD Primary Care Provider Reason for Visit Reason Onset Date Comments Dental Concerns 09/11/2006 Encounter Details Date Type Department Care Team Description 09/11/2006 Telephone [facility] Faye Patel RN Dental Concerns [address] [place], [place] [address] Social History Tobacco Use Types Packs/Day Years [...] will call back patient. Faye Patel RN SPRAYER documented in this encounter Plan of Treatment Not on filedocumented as of this encounter Visit Diagnoses Not on filedocumented in this encounter Care Teams Wire Frame Dipper Relationship Specialty Start Date End Date Alisha Kimball MD PCP - General 07/08/05 [address] [place] [address] documented as of this encounter
--- OUTSIDE RECORDS SUMMARY | 2022-06-12 09:47 | XMS_ITS | Encounter Summary ---
:1955 Author Organization [facility] Address [address] [place] [address] Care Team Providers Name Role Phone Alisha Kimball MD Primary Care Provider Reason for Visit Reason Onset Date Comments COUGH 07/08/2005 cough Encounter Details Date Type Department Care Team Description 07/08/2005 Telephone [facility] Miky [place] MD COUGH (cough) [address] [place] [address] [place] [address] [phone] (Wo rk) Social History Tobacco Use Types Packs/Day Years Used Date Smoking Tobacco: Never Alcohol Use Standard Drinks/Week Comments Not Asked 0 (1 standard drink = 0.6 oz pure alcoho l) Sex Assigned at Date Recorded Not on file documented as of this encounter Nursing Notes 07/08/2005 11:59 PM FLOORWORKER LASTING >> JORGE PONCE Wed Jul 08, 2005 [...] filedocumented in this encounter Care Teams Staff Physical Therapist Relationship Specialty Start Date End Date Alisha Kimball MD PCP - General 07/08/05 [address] [place] [address] documented as of this encounter
--- OUTSIDE RECORDS SUMMARY | 2022-06-12 09:47 | XMS_ITS | Encounter Summary ---
:1955 Author Organization [facility] Address [address] [place] [address] Care Team Providers Name Role Phone Alihsa Kimball MD Primary Care Provider Encounter Details Date Type Department Care Team Description 01/26/2006 Orders Only [facility] MD Cande Security Contact Bill [address] [place] [address] Mailstop [id number] [phone] (Wo rk) Social History Tobacco Use Types [...] on filedocumented in this encounter Care Teams Paster Supervisor Relationship Specialty Start Date End Date Alisha Kimball MD PCP - General 07/08/[address] [place] [address] documented as of this encounter
--- OUTSIDE RECORDS SUMMARY | 2022-06-12 09:47 | XMS_ITS | Encounter Summary ---
:1955 Author Organization [facility] Address [address] [address] Care Team Providers Name Role Phone Alisha Kimball MD Primary Care Provider Encounter Details Date Type Department Care Team Description 08/31/2007 Office Visit Specialty Center Arlene Hensley Ma llet Finger (Primary 401 Hand Therapy OTR/L Dx) 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 ICD-9-code: 736.1 Date of Onset: 06/02/07 Date of Surgery: not applicable Referring Physician: Jigar Mcgarry V Order Date(s): 08/09/07 Date of initial evaluation/progress note(s): 08/17/2007 Injury: Left Hand Dominance: Right CURRENT HOME PROGRAM : daytime caregiver use of mallet splint VISIT NUMBER: 3 out of 3 PAIN: Intensity Level: Current Not rated/10 SUBJECTIVE Patient reports daytime caregiver use of splint. Changes splint every two [...] Functional limitations TREATMENT PLAN Pt will continue daytime caregiver splinting through . Will reschedule her Dr [...] Quantity: 2 Nicolasa Hensley, OTR, CHT, MLD T ASSISTANT documented in this encounter Plan of Treatment Not on filedocumented as of this encounter Visit Diagnoses Diagnosis Mallet finger - Primary documented in this encounter Care Teams Wood Piler Relationship Specialty Start Date End Date Alisha Kimball MD PCP - General 07/08/05 [address] [place] [address] documented as of this encounter
--- OUTSIDE RECORDS SUMMARY | 2022-06-12 09:47 | XMS_ITS | Encounter Summary ---
:1955 Author Organization [facility] Address [address], [place] [address] Care Team Providers Name Role Phone Alisha Kimball MD Primary Care Provider Reason for Visit Reason Comments COUGH for several days Encounter Details Date Type Department Care Team Description 07/08/2005 Office Visit [facility] Alisha Kimball, COUGH (P rimary Dx); Practice MD SCREEN FOR LIPID DISORDERS [address] [place] [address] [place] [address] [phone] Social History Tobacco Use Types Packs/Day Years Used Date Smoking Tobacco: Never Alcohol Use Standard Drinks/Week Comments Not Asked 0 (1 standard drink = 0.6 oz pure alcoho l) Sex Assigned at Date Recorded Not on file documented as of this encounter Last Filed Vital Signs Vital Sign Reading Time Taken Comments Blood Pressure - - Pulse 78 07/08/2005 3:51 PM AIR DEFENCE OFFICER Temperature 37 ??C (98.6 ??F) 07/08/2005 3:51 PM AIR DEFENCE OFFICER Respiratory Rate 18 07/08/2005 3:51 PM AIR DEFENCE OFFICER Oxygen Saturation 97% 07/08/2005 3:51 PM AIR DEFENCE OFFICER Inhaled Oxygen Concentration - - Weight 83.9 kg (185 lb) 07/08/2005 3:51 PM AIR DEFENCE OFFICER Height - - Body Mass Index - [...] breathing, or any other concerns. P cc: DEFENCE OFFICER documented in this encounter Plan of Treatment Not on filedocumented as of this encounter Procedures Procedure Name Priority Date/Time Associated Comments Diagnosis BORDETELLA PERTUSSIS Routine 07/08/2005 4:28 PM Cough R esults for this / PARAPERTUSSIS, AIR DEFENCE OFFICER procedure a re in MOLECULAR DETECTION the resu lts section. documented in this encounter Results (ABNORMAL) B PERTUSSIS/PARA,PCR (07/08/2005 4:28 PM AIR DEFENCE OFFICER) Component Value Ref Test Analysis Performed At [facility] Method Time Signature B Positive - [facility] pertussis/pa BORDETELLA ra PCR PARAPERTUSSIS DNA DETECTED (A) Comment: Negative - No Bordetella pertus sis DNA Detected Comment Referred to [employer] Specimen Anatomical Collection Method Collection Time Receive d Time (Source) Location / / Volume Laterality 07/08/2005 4:28 PM 6 4:29 AIR DEFENCE OFFICER PM AIR DEFENCE OFFICER Alisha Kimball MD LAB_1 Performing Organization Address City/State/ZIP Code Phon e Number [place] [employer] [phone] [facility] [address] [phone] documented in this encounter Visit Diagnoses Diagnosis Cough - Primary Screening for lipoid disorders documented in this encounter Care Teams Yacht Builder Relationship Specialty Start Date End Date Alisha Kimball MD PCP - General 07/08/05 [address] [place] [address] documented as of this encounter
--- OUTSIDE RECORDS SUMMARY | 2022-06-12 09:47 | XMS_ITS | Encounter Summary ---
:1955 Author Organization [facility] Address [address] [address] Care Team Providers Name Role Phone Miky Sultana MD Primary Care Provider Reason for Visit Reason Comments LAB RESULTS Encounter Details Date Type Department Care Team Description 02/26/2005 Telephone [facility] Carroll Steinberg MD LAB RESULTS [address] [facility]. [address] [place] [address] [place], [place] [phone] (Wo rk) Social History Tobacco Use Types [...] Veronica Dickens RN >> CARROLL AVALOS [facility] Feb 26, 2005 9:04 AM Called the [...] hypertension documented in this encounter Care Teams Collections Assistant Relationship Specialty Start Date End Date Miky Sultana MD PCP - General 09/21/01 07/07/05 [address] [place] [address] documented as of this encounter
--- OUTSIDE RECORDS SUMMARY | 2022-06-12 09:47 | XMS_ITS | Encounter Summary ---
:1955 Author Organization [employer] [facility] Address [address] [place] [address] Care Team Providers Name Role Phone Alisha Kimball MD Primary Care Provider Reason for Visit Reason Comments INJURY, FINGERS 3rd finger lt hand caught in car door last night Encounter Details Date Type Department Care Team Description 06/02/2007 Office Visit [facility] Gino Chavez, Rupt ure of Extensor Tendons of Hand and Wrist (Primary Dx); Practice MD Finger Injury [address] [place] [address] [address] [phone] [place] [address] (Wo rk) Social History Tobacco Use Types Packs/Day Years Used Date Smoking Tobacco: Never Alcohol Use Standard Drinks/Week Comments Not Asked 0 (1 standard drink = 0.6 oz pure alcoho l) Sex Assigned at Date Recorded Not on file documented as of this encounter Last Filed Vital Signs Vital Sign Reading Time Taken Comments Blood Pressure 122/84 06/02/2007 9:19 AM SILVER STEWARD Pulse 72 06/02/2007 9:19 AM SILVER STEWARD Temperature - - Respiratory Rate - - Oxygen Saturation - - Inhaled Oxygen Concentration - - Weight 75.8 kg (167 lb 3.2 oz) 06/02/2007 9:19 AM SILVER STEWARD Height - - Body Mass Index 27.82 [...] all during this time. Gino Chavez MD ER STEWARD documented in this encounter Procedure Notes Milagro Valera - 06/02/2007 12:00 AM CSTAssociated Order(s): FINGER(S) INITIAL& FOLLOW UP CLINICAL DATA: LEFT MIDDLE FINGER JAMMED BY A CAR DOOR YESTERDAY, UNABLE TO EXTEND DIP EXAMINATION: LEFT THIRD FINGER 06/02/2007: FINDINGS: Normal examination. Milagro Valera MD A cc: Gino Chavez MD Radiology [place] ER STEWARD documented in this encounter Plan of Treatment Not on filedocumented as of this encounter Procedures Procedure Name Priority Date/Time Associated Diagnosis Comme nts RADEX FNGR MINIMUM Routine 06/02/2007 12:00 AM Finger Injury R esults for this 2 VIEWS SILVER STEWARD procedure are i n the results section. documented in this encounter Results Finger (06/02/2007 12:00 AM SILVER STEWARD) Anatomical Region Laterality Modality Other Transcriptions Milagro [...] finger documented in this encounter Care Teams Construction Safety Consultant Relationship Specialty Start Date End Date Alisha Kimball MD PCP - General 07/08/05 [address] [place] [address] documented as of this encounter
--- OUTSIDE RECORDS SUMMARY | 2022-06-12 09:47 | XMS_ITS | Encounter Summary ---
:1955 Author Organization [employer] Address [address], [place] [address] Care Team Providers Name Role Phone Alisha Kimball MD Primary Care Provider Reason for Referral Specialty Diagnoses / Procedures Referred By Contact Refer red To Contact Jigar Mcgarry MD [address] [place] [address] Referral ID Status Reason Start Date Expiration Date Visits Requ ested Visits Authorized BILITY SPECIALIST Reason for Visit Reason Comments NEW MEMBER VISIT eval crush injury to her lef t long finger referred by Dr. Alisha Kimball DOI 06/02/07 Encounter Details Date Type Department Care Team Description 08/09/2007 [facility] Visit [facility] Jigar Mcgarry et Finger (Primary 401 Plastic & Hand VMD Dx) Surgery [address] [place] [address] Social History Tobacco Use Types Packs/Day Years Used Date Smoking Tobacco: Never Alcohol Use Standard Drinks/Week Comments Not Asked 0 (1 standard drink = 0.6 oz pure alcoho l) Sex Assigned at Date Recorded Not on file documented as of this encounter Last Filed Vital Signs Vital Sign Reading Time Taken Comments Blood Pressure 121/84 08/09/2007 4:16 PM DISABILITY SPECIALIST Pulse 73 08/09/2007 4:16 PM DISABILITY SPECIALIST Temperature 36.7 ??C (98.1 ??F) 08/09/2007 4:16 PM DISABILITY SPECIALIST Respiratory Rate 16 08/09/2007 4:16 PM DISABILITY SPECIALIST Oxygen Saturation - - Inhaled Oxygen Concentration - - Weight 73.5 kg (162 lb) 08/09/2007 4:16 PM DISABILITY SPECIALIST Height 162.6 cm (5' 4) 08/09/2007 4:16 PM DISABILITY SPECIALIST Body Mass Index 27.81 08/09/2007 4:16 PM DISABILITY SPECIALIST documented in this encounter Patient Instructions Patient InstructionsSchJigar murcia V - 08/09/2007 4:45 PM CST Hand Therapy CATIA. Return to clinic in 8 weeks. Jigar Mcgarry MD Plastic and Hand Surgery BILITY SPECIALIST documented in this encounter Progress Notes Jigar Mcgarry V - 08/09/2007 12:00 AM DISABILITY SPECIALIST Loc Velasco is a 52 -year-old patient [...] weeks. P cc: MD Alisha Matos MD BILITY SPECIALIST documented in this encounter Plan of Treatment Not on filedocumented as of this encounter Visit Diagnoses Diagnosis Mallet finger - Primary documented in this encounter Care Teams Senior Grants Officer Relationship Specialty Start Date End Date Alisha Kimball MD PCP - General 07/08/05 [address] [place] [address] documented as of this encounter
--- OUTSIDE RECORDS SUMMARY | 2022-06-12 09:47 | XMS_ITS | Encounter Summary ---
:1955 Author Organization [employer] Address [address] [address] Care Team Providers Name Role Phone Alisha Kimball MD Primary Care Provider Reason for Referral Specialty Diagnoses / Procedures Referred By Contact Refer red To Contact Mauro Keyes MD [address] [place] [address] Referral ID Status Reason Start Date Expiration Date Visits Requ ested Visits Authorized LATION INSTALLER Reason for Visit Reason Comments Follow-up, NOS finger Encounter Details Date Type Department Care Team Description 08/02/2007 Office Visit [place] [facility] Mauro Keyes (Primary Medicine Carmen Amos MD Dx) [address] [facility]. [address] [place] [address] [place] [address] Social History Tobacco Use Types Packs/Day Years Used Date Smoking Tobacco: Never Alcohol Use Standard Drinks/Week Comments Not Asked 0 (1 standard drink = 0.6 oz pure alcoho l) Sex Assigned at Date Recorded Not on file documented as of this encounter Last Filed Vital Signs Vital Sign Reading Time Taken Comments Blood Pressure 116/62 08/02/2007 2:26 PM INSULATION INSTALLER Pulse 76 08/02/2007 2:26 PM INSULATION INSTALLER Temperature - - Respiratory Rate 16 08/02/2007 2:26 PM INSULATION INSTALLER Oxygen Saturation - - Inhaled Oxygen Concentration - - Weight 73.9 kg (163 lb) 08/02/2007 2:26 PM INSULATION INSTALLER Height 165.1 cm (5' 5) 08/02/2007 2:26 PM INSULATION INSTALLER Body Mass Index 27.12 08/02/2007 2:26 PM INSULATION INSTALLER documented in this encounter Progress Notes Mauro Keyes V - 08/02/2007 3:28 PM CST This office note has been dictated. LATION INSTALLER Mauro Keyes V - 08/02/2007 12:00 AM INSULATION INSTALLER Ms. Velasco is a 52-year-old lady who [...] hand surgeon for further evaluation. P cc: LATION INSTALLER documented in this encounter Plan of Treatment Not on filedocumented as of this encounter Visit Diagnoses Diagnosis Finger pain - Primary Pain in limb documented in this encounter Care Teams Diploma Pharmacy Technician Relationship Specialty Start Date End Date Alisha Kimball MD PCP - General 07/08/05 [address] [place] [address] documented as of this encounter
--- OUTSIDE RECORDS SUMMARY | 2022-06-12 09:47 | XMS_ITS | Encounter Summary ---
:1955 Author Organization [facility] Address [address] [place] [address] Care Team Providers Name Role Phone Alisha Kimball MD Primary Care Provider Encounter Details Date Type Department Care Team Description 11/25/2005 Telephone [facility] Mari Luna MD [address] [facility] [place], [place] [address] [address] [place], [place] [address] (Wo rk) Social History [...] filedocumented in this encounter Care Teams Commercial Litigation Paralegal Relationship Specialty Start Date End Date Alisha Kimball MD PCP - General 07/08/[address] [place], [place] [address] documented as of this encounter
--- OUTSIDE RECORDS SUMMARY | 2022-06-12 09:47 | XMS_ITS | Encounter Summary ---
:1955 Author Organization [facility] Address [address] [place] [address] Care Team Providers Name Role Phone Alisha Kimball MD Primary Care Provider Encounter Details Date Type Department Care Team Description 01/26/2006 [facility] MD Malik MALIG NEOPLASMS, [address] [place] [address] [address] [address] [place] [address] Social History Tobacco Use Types [...] colon documented in this encounter Care Teams Director State Pharmacy Relationship Specialty Start Date End Date Alisha Kimball MD PCP - General 07/08/05 [address] [place] [address] documented as of this encounter
--- OUTSIDE RECORDS SUMMARY | 2022-06-12 09:47 | XMS_ITS | Encounter Summary ---
:1955 Author Organization [facility] Address [address], [place] [address] Care Team Providers Name Role Phone Alisha Kimball MD Primary Care Provider Encounter Details Date Type Department Care Team Description 08/22/2007 Office Visit [facility] Janiya Knowles let Finger (Primary [address] Therapy A, OTR/L Dx) [address] [place] [address] [place], [place] [phone] [address] Social History Tobacco Use Types Packs/Day Years Used Date Smoking Tobacco: Never Alcohol Use Standard Drinks/Week Comments Not Asked 0 (1 standard drink = 0.6 oz pure alcoho l) Sex Assigned at Date Recorded Not on file documented as of this encounter Progress Notes Janiya Knowles A - 08/22/2007 10:02 AM CST HAND OCCUPATIONAL THERAPY DAILY NOTE 08/22/2007 Patient Name: Loc Velasco [id number] Payor: SELF [id number] Plan: SELF INSURED Product Type: *No Product [...] 1 Therapeutic Procedure: Quantity: 1 Janiya Knowles,OTR/L,CHT FUSION documented in this encounter Plan of Treatment Not on filedocumented as of this encounter Visit Diagnoses Diagnosis Mallet finger - Primary documented in this encounter Care Teams Loan Documentation Specialist Relationship Specialty Start Date End Date Alisha Kimball MD PCP - General 07/08/05 [address] [place] [address] documented as of this encounter
--- OUTSIDE RECORDS SUMMARY | 2022-06-12 09:47 | XMS_ITS | Encounter Summary ---
:1955 Author Organization [facility] Address [address] [place] [address] Care Team Providers Name Role Phone Alisha Kimball MD Primary Care Provider Encounter Details Date Type Department Care Team Description 08/16/2007 Orders Only [facility] Mammogram I, Sp O ther Screening Mammography Mammogram (Primary [address] Dx) [place], [place] [id number] Social History Tobacco Use Types Packs/Day Years [...] Brittney Steen MD D: cc: Radiology SP RINARY LABORATORY TECHNICIAN documented in this encounter Plan of Treatment Not on filedocumented as of this encounter Procedures Procedure Name Priority Date/Time Associated Diagnosis Comme nts SCREENING MAMMO Routine 08/16/2007 12:00 AM Other Screening Re sults for this DIRECT DIGITAL IMG VETERINARY LABORATORY TECHNICIAN Mammogram procedure are in BECCA the results section. documented in this encounter Results MAMMOGRAM, SCREENING (DIGITAL) (08/16/2007 12:00 AM VETERINARY LABORATORY TECHNICIAN) Anatomical Region Laterality Modality Breast Other Transcriptions [...] documented in this encounter Care Teams Medical Doctor Nuclear Medicine Relationship Specialty Start Date End Date Alisha Kimball MD PCP - General 07/08/05 [address] [place] [address] documented as of this encounter
--- OUTSIDE RECORDS SUMMARY | 2022-06-12 09:47 | XMS_ITS | Encounter Summary ---
:1955 Author Organization [facility] Address [address] [place] [address] Care Team Providers Name Role Phone Alisha Kimball MD Primary Care Provider Reason for Visit Reason Comments CONSULT prolasp bladder Encounter Details Date Type Department Care Team Description 10/06/2006 Office Visit [facility] Froy Rutherford Vagin al Prolapse and Gynecology (Primary Dx) [address] [place] [address] Social History Tobacco Use Types [...] [place] documented in this encounter Care Teams Oil Field Tester Relationship Specialty Start Date End Date Alisha Kimball MD PCP - General 07/08/[address] [place] [address] documented as of this encounter
--- OUTSIDE RECORDS SUMMARY | 2022-06-12 09:47 | XMS_ITS | Encounter Summary ---
:1955 Author [facility] Address [address] [place] [address] Care Team Providers Name Role Phone Miky Sultana MD Primary Care Provider Encounter Details Date Type Department Care Team Description 12/01/2002 Office Visit [facility] Juan Daniel, EYE & VISION EXAMINATION; [address] RAJEEV Chapin [place]; [place] [address] [address] [place] [phone] [place], [place] [address] Social History Tobacco Use [...] in this encounter Care Teams Behavioral Health Director Relationship Specialty Start Date End Date Miky Sultana MD PCP - General 09/21/01 07/07/05 [address] [place] [address] documented as of this encounter
--- OUTSIDE RECORDS SUMMARY | 2022-06-12 09:47 | XMS_ITS | Encounter Summary ---
:1955 Author Organization [facility] Address [address], [place] [address] Care Team Providers Name Role Phone Miky Sultana MD Primary Care Provider Reason for Referral Specialty Diagnoses / Procedures Referred By Contact Refer red To Contact Miky Sultana MD [address] [place] [address] Referral ID Status Reason Start Date Expiration Date Visits Requ ested Visits Authorized SPLITTER Reason for Visit Reason Comments COUGH CONSTIPATION with bloating Encounter Details Date Type Department Care Team Description 06/17/2005 Office Visit [facility] Mkiy Sultana MD CONSTIPATION NOS Practice [address] [facility] (Primary Dx) [address] [place] [address] [place] [address] [phone] Social History Tobacco Use Types Packs/Day Years Used Date Smoking Tobacco: Never Alcohol Use Standard Drinks/Week Comments Not Asked 0 (1 standard drink = 0.6 oz pure alcoho l) Sex Assigned at Date Recorded Not on file documented as of this encounter Last Filed Vital Signs Vital Sign Reading Time Taken Comments Blood Pressure 122/64 06/17/2005 9:23 AM SOLE SPLITTER Pulse 78 06/17/2005 9:23 AM SOLE SPLITTER Temperature 36.9 ??C (98.4 ??F) 06/17/2005 9:23 AM SOLE SPLITTER Respiratory Rate 26 06/17/2005 9:23 AM SOLE SPLITTER Oxygen Saturation - - Inhaled Oxygen Concentration - - Weight 84.5 kg (186 lb 3.2 oz) 06/17/2005 9:23 AM SOLE SPLITTER Height - - Body Mass Index - - documented in this encounter Progress Notes 06/17/2005 9:20 AM SOLE SPLITTER This office note has been dictated. MD [...] including a trial of Metamucil. P cc: SPLITTER documented in this encounter Plan of Treatment Scheduled Referrals Name Type Priority Associated Diagnoses Order S chedule COLONOSCOPY-DIAGNOSTIC Referral Routine Constipation Nos O rdered: 06/17/2005 documented as of this encounter Visit Diagnoses Diagnosis Unspecified constipation - Primary documented in this encounter Care Teams Foil Wrapper Relationship Specialty Start Date End Date Miky Sultana MD PCP - General 09/21/01 07/07/05 [address] [place] [address] documented as of this encounter
--- OUTSIDE RECORDS SUMMARY | 2022-06-12 09:47 | XMS_ITS | Encounter Summary ---
:1955 Author Organization [facility] Address [address], [place] [address] Care Team Providers Name Role Phone Miky Sultana MD Primary Care Provider Reason for Visit Reason Comments BP CHECK,NURSE Encounter Details Date Type Department Care Team Description 03/16/2005 Office Visit [facility] Differential Specialist/Christopher/Simona Sibley HYPERTENSI ON NOS Department Nursing [address] [facility]. [address] [place] [address] [place] [address] [phone] Social History Tobacco Use Types Packs/Day Years [...] hypertension documented in this encounter Care Teams Mass Communications Instructor Relationship Specialty Start Date End Date Miky Sultana MD PCP - General 09/21/01 07/07/05 [address] [place] [address] documented as of this encounter
--- OUTSIDE RECORDS SUMMARY | 2022-06-12 09:47 | XMS_ITS | Encounter Summary ---
:1955 Author [facility] Address [address] [place] [address] Care Team Providers Name Role Phone Alisha [...] in this encounter Care Teams Supervisor Cigar Processing Relationship Specialty Start Date End Date Alisha Kimball MD PCP - General 07/08/[address] [place], [place] [id number] documented as of this encounter
--- OUTSIDE RECORDS SUMMARY | 2022-06-12 09:47 | XMS_ITS | Encounter Summary ---
:1955 Author Organization [facility] Address [address] [place] [address] Care Team Providers Name Role Phone Carroll Kimball MD Primary Care Provider Reason for Visit Reason Comments MOLE she is fasting CONSTIPATION noticed a buldge in back Encounter Details Date Type Department Care Team Description 09/09/2006 Office Visit [facility] Carroll Kimball, Skin Les ion (Primary Dx); Practice [facility] for DTP; [address] Scre[address] Cholesterol Level; [place] [address] [address] Screening for Diabetes Mellitus; [phone] [place], [place] Frequent Urinat ion; [address] Cystocele; [phone] Constipation; (Work) Hypercholesteremia Social History Tobacco Use Types Packs/Day Years Used Date Smoking Tobacco: Never Alcohol Use Standard Drinks/Week Comments Not Asked 0 (1 standard drink = 0.6 oz pure alcoho l) Sex Assigned at Date Recorded Not on file documented as of this encounter Last Filed Vital Signs Vital Sign Reading Time Taken Comments Blood Pressure 132/78 09/09/2006 2:20 PM LYE BATH OPERATOR Pulse 82 09/09/2006 2:20 PM LYE BATH OPERATOR Temperature 37.1 ??C (98.7 ??F) 09/09/2006 2:20 PM LYE BATH OPERATOR Respiratory Rate 26 09/09/2006 2:20 PM LYE BATH OPERATOR Oxygen Saturation - - Inhaled Oxygen Concentration - - Weight 88.1 kg (194 lb 3.2 oz) 09/09/2006 2:20 PM LYE BATH OPERATOR Height - - Body Mass Index - - documented in this encounter Progress Notes Carroll Kimball - 09/11/2006 9:44 PM LYE BATH OPERATOR Addended by: CARROLL KIMBALL on: 09/11/2006 9:44:12 PM Modules accepted: Orders BATH OPERATOR Carroll Kimball - 09/09/2006 3:23 PM CST This office note has been dictated. Carroll Kimball MD BATH OPERATOR Carroll Kimball - 09/09/2006 12:00 AM LYE BATH OPERATOR SUBJECTIVE: Loc is seen today with several [...] to help. She will sometimes use an tavw-zfx-qzcbjmr stool softener. She's not sure if that [...] See orders. Results by mail. A cc: BATH OPERATOR documented in this encounter Plan of Treatment Not on filedocumented as of this encounter Procedures Procedure Name Priority Date/Time Associated Diagnosis Comme nts BASIC METABOLIC Routine 09/09/2006 3:39 PM Frequent Urination Results for this PANEL LYE BATH OPERATOR procedure are i n the results section. UA MICRO IF Routine 09/09/2006 3:39 PM Frequent Urination Res ults for this LYE BATH OPERATOR procedure are i n the results section. LIPID PANEL, FAST > Routine 09/09/2006 3:39 PM Screening Re sults for this 12 HOUR LYE BATH OPERATOR Cholesterol Level procedure are in the results section. URINE CULTURE Routine 09/09/2006 3:39 PM Frequent Urination Re sults for this LYE BATH OPERATOR procedure are i n the results section. UA MICRO Routine 09/09/2006 3:39 PM Results f or this LYE BATH OPERATOR procedure are i n the results section. documented in this encounter Results UA MICRO (09/09/2006 3:39 PM LYE BATH OPERATOR) [facility] Method Time Signature RBC'S 0-3 0 - 3 [facility] /hpf WBC'S 3-5 0 - 5 [facility] /hpf Epith, Many /hpf [facility] Squamous Bact Occ [facility] Casts 0 /lpf [facility] Other Mod Mucous [facility] Specimen Anatomical Collection Method Collection Time Receive d Time (Source) Location / / Volume Laterality 09/09/2006 3:39 PM 7 3:40 LYE BATH OPERATOR PM LYE BATH OPERATOR Carroll Kimball MD LAB_1 Performing Organization Address [facility] Phon e Number [employer] [phone] [facility] [address] [place] [phone] URINE CULTURE (09/09/2006 3:39 PM LYE BATH OPERATOR) Component Value Ref Test Analysis Performed At [facility] Range Method Time Signature Specimen Urine [facility] Description Midstream Special Unspecified [facility] Requests Culture No Growth [facility] After 1 Day Report Status Final [id number] [facility] Specimen Anatomical Collection Method Collection Time Receive d Time (Source) Location / / Volume Laterality 09/09/2006 3:39 PM 7 3:40 LYE BATH OPERATOR PM LYE BATH OPERATOR Carroll Kimball MD LAB_1 Performing Organization Address [facility] Phon e Number [employer] [phone] [facility] [address] [place] [phone] (ABNORMAL) UA MICRO IF (09/09/2006 3:39 PM LYE BATH OPERATOR) [facility] Method Time Signature Appr Yellow [facility] Appr [...] Volume Laterality 09/09/2006 3:39 PM 7 3:40 LYE BATH OPERATOR PM LYE BATH OPERATOR Carroll Kimball MD LAB_1 Performing Organization Address [facility] Phon e Number [facility] Package Concierge [phone] [facility] [address] [place] [phone] BASIC METABOLIC PANEL (09/09/2006 3:39 PM LYE BATH OPERATOR) athologist Signature BUN 20 10 - 26 [...] ml/min/1.7 3m2 Calcium 9.4 8.2 - 10.0 [facility] mg/dl Anion Gap 10 7 - 17 [facility] (calc.) mmol/L Specimen Anatomical Collection Method Collection Time Receive d Time (Source) Location / / Volume Laterality 09/09/2006 3:39 PM 7 3:40 LYE BATH OPERATOR PM LYE BATH OPERATOR Carroll Kimball MD LAB_1 Performing Organization Address [facility] Phon e Number [facility] Package Concierge [phone] [address] (ABNORMAL) CHOLESTEROL LIPID PANEL FAST >12HR (09/09/2006 3:39 PM LYE BATH OPERATOR) P athologist Signature Cholesterol 205 (H) <200 mg/dl [facility] Comment: Result should not be interpreted without the patient's history of cardiovascular risk factors. Triglyceride 137 <200 mg/dl [facility] HDL 40 >35 mg/dl [facility] LDL, Calc. 138 mg/dl [facility] Hours Fasting 12 hours [facility] Specimen Anatomical Collection Method Collection Time Receive d Time (Source) Location / / Volume Laterality 09/09/2006 3:39 PM 7 3:40 LYE BATH OPERATOR PM LYE BATH OPERATOR Carroll Kimball MD LAB_1 Performing Organization Address City/State/ZIP Code Phon e Number [facility] [phone] [facility] [address] [address] documented in this encounter Visit Diagnoses Diagnosis Skin lesion - Primary Unspecified disorder of skin and subcuta neous tissue Need for prophylactic vaccination with c ombined lxzpsteskl-blscdzv-nkshabqmu (DTP) vaccine Screening cholesterol level Screening for lipoid disorders Screening for diabetes mellitus Frequent urination Urinary frequency Cystocele Cystocele, midline Constipation Unspecified constipation Hypercholesteremia Pure hypercholesterolemia documented in this encounter Care Teams Commissioned Defence Force Officer Relationship Specialty Start Date End Date Carroll Kimball MD PCP - General 07/08/05 [address] [place] [address] documented as of this encounter
--- OUTSIDE RECORDS SUMMARY | 2022-06-12 09:47 | XMS_ITS | Encounter Summary ---
:1955 Author Organization [facility] Address [address], [place] [address] Care Team Providers Name Role Phone Alisha Kimball MD Primary Care Provider Encounter Details Date Type Department Care Team Description 11/27/2005 Office Visit [facility] Mari Pickens MD LICHENIFICATION [address] [place], [place] [address] [address] [place] [address] [place], [place] [address] (Wo rk) Social History [...] left leg. She is traveling out to [place] to attend her son's graduation within the [...] icus documented in this encounter Care Teams Visual Specialist Relationship Specialty Start Date End Date Alisha Kimball MD PCP - General 07/08/05 [address] [place] [address] documented as of this encounter
--- OUTSIDE RECORDS SUMMARY | 2022-06-12 09:48 | XMS_ITS | Encounter Summary ---
:1955 Author Organization [facility] Address [address], [place] [address] Care Team Providers Name Role Phone Luis Pierce MD Primary Care Provider Unavailable Reason for Visit Reason Comments PAIN, NOS VIA INTERFACE Encounter Details Date Type Department Care Team Description 01/27/2000 Office Visit [facility] Miky Sultana MD ANKLE ENTHESOPATHY NOS Practice [address] [facility] [address] [place] [address] [place] [address] Social History Tobacco Use Types Packs/Day Years [...] anti-inflammatory medications and maybe even try an nkpm-vnt-wszzwpu arch support. cc: documented in this encounter Plan of Treatment Not on filedocumented as of this encounter Visit Diagnoses Diagnosis Enthesopathy of ankle and tarsus, unspec ified documented in this encounter Care Teams Clinic Supervisor Relationship Specialty Start Date End Date Luis Pierce MD PCP - General 05/27/1998 documented as of this encounter
--- OUTSIDE RECORDS SUMMARY | 2022-06-12 09:48 | XMS_ITS | Encounter Summary ---
:1955 Author Organization [facility] Address [address] [place] [address] Care Team Providers Name Role Phone Alisha Kimball MD Primary Care Provider Encounter Details Date Type Department Care Team Description 08/27/1999 Orders Only Miky Sultana MD [address] [facility] [address] BO[facility] [place] [address] (Wo rk) Social History Tobacco Use Types Packs/Day Years Used Date Smoking Tobacco: Never Assessed Sex Assigned at Date Recorded Not on file documented as of this encounter Plan of Treatment Not on filedocumented as of this encounter Visit Diagnoses Not on filedocumented in this encounter Care Teams Pretzel Twister Relationship Specialty Start Date End Date Alisha Kimball MD PCP - General 07/08/[address] [place], [place] [address] documented as of this encounter
--- OUTSIDE RECORDS SUMMARY | 2022-06-12 09:48 | XMS_ITS | Encounter Summary ---
:1955 Author Organization [facility] Address [address], [place] [address] Care Team Providers Name Role Phone Luis Pierce MD Primary Care Provider Unavailable Reason for Visit Reason Comments COUGH VIA INTERFACE Encounter Details Date Type Department Care Team Description 08/27/1999 Office Visit [facility] Miky Salinas MD BRONCHITIS NOS [address] [place] [address] [place] [address] (Wo rk) Social History Tobacco Use Types [...] no improvement into early next week. cc: ING LOOM OPERATOR documented in this encounter Plan of Treatment Not on filedocumented as of this encounter Visit Diagnoses Diagnosis Bronchitis, not specified as acute or ch ronic documented in this encounter Care Teams Feltmaker And Weigher Relationship Specialty Start Date End Date Luis Pierce MD PCP - General 05/27/1998 documented as of this encounter
--- OUTSIDE RECORDS SUMMARY | 2022-06-12 09:48 | XMS_ITS | Encounter Summary ---
:1955 Author Organization [facility] Address [address] [place] [address] Care Team Providers Name Role Phone Luis Pierce MD Primary Care Provider Unavailable Encounter Details Date Type Department Care Team Description 12/30/1998 Office Visit [facility] Emily Lei, ENURESIS NOS [address] PAPER CUP HANDLE MACHINE OPERATOR, PROGRAM PARAPROFESSIONAL [place], [place] [phone] [place] [facility] [phone] [place], [place] [address] (Wo rk) Social History [...] incontinence documented in this encounter Care Teams Boat Engines Installer Relationship Specialty Start Date End Date Luis Pierce MD PCP - General 05/27/1998 documented as of this encounter
--- OUTSIDE RECORDS SUMMARY | 2022-06-12 09:48 | XMS_ITS | Encounter Summary ---
:1955 Author Organization [facility] Address [address] [place] [address] Care Team Providers Name Role Phone Alisha Kimball MD Primary Care Provider Encounter Details Date Type Department Care Team Description 12/18/1999 Orders Only [facility] [address] [place], [place] [phone] Social History Tobacco Use [...] UA WITH MICRO (12/18/1999 7:09 PM CDT) [facility] Method Time Signature Appr Pale Yel [...] 0 7:10 CDT PM CDT Im Trauma [facility] LAB_1 Performing Organization Address City/State/ZIP Code Phon e Number [facility] [phone] [facility] [address] [phone] documented in this encounter Visit Diagnoses Not on filedocumented in this encounter Care Teams Tissue Technician Relationship Specialty Start Date End Date Alisha Kimball MD PCP - General 07/08/[address] [place] [address] documented as of this encounter
--- OUTSIDE RECORDS SUMMARY | 2022-06-12 09:48 | XMS_ITS | Encounter Summary ---
:1955 Author Organization [facility] Address [address], [place] [address] Care Team Providers Name Role Phone Luis Pierce MD Primary Care Provider Unavailable Encounter Details Date Type Department Care Team Description 02/22/2001 Office Visit [facility] Miky Sultana MD CHONDROMALACIA PATELLAE Practice [address] [facility] [address] [place] [address] [place] [address] Social History Tobacco Use Types Packs/Day Years [...] patella documented in this encounter Care Teams Hand Glass Cutter Relationship Specialty Start Date End Date Luis Pierce MD PCP - General 05/27/1998 documented as of this encounter
--- OUTSIDE RECORDS SUMMARY | 2022-06-12 09:48 | XMS_ITS | Encounter Summary ---
:1955 Author Organization [facility] Address [address] [place] [address] Care Team Providers Name Role Phone Luis Pierce MD Primary Care Provider Unavailable Encounter Details Date Type Department Care Team Description 08/18/2001 Orders Only [facility] Hiram Romero MD [address] [place] [address] [place] [address] [phone] (Wo rk) Social History Tobacco Use Types Packs/Day Years Used Date Smoking Tobacco: Never Assessed Sex Assigned at Date Recorded Not on file documented as of this encounter Plan of Treatment Not on filedocumented as of this encounter Visit Diagnoses Not on filedocumented in this encounter Care Teams Instructional Technology Facilitator Relationship Specialty Start Date End Date Luis Pierce MD PCP - General 05/27/1998 documented as of this encounter
--- OUTSIDE RECORDS SUMMARY | 2022-06-12 09:48 | XMS_ITS | Encounter Summary ---
:1955 Author Organization [facility] Address [address] [address] Care Team Providers Name Role Phone Luis Pierce MD Primary Care Provider Unavailable Encounter Details Date Type Department Care Team Description 01/17/2001 Office Visit [facility] Miky Sultana MD INT DERANGEMENT KNEE Practice 1907 [facility] NOS [address] [place] [address] [place] [address] [phone] Social History Tobacco Use Types Packs/Day Years [...] knee documented in this encounter Care Teams Combat Information Center Officer Relationship Specialty Start Date End Date Luis Pierce MD PCP - General 05/27/1998 documented as of this encounter
--- OUTSIDE RECORDS SUMMARY | 2022-06-12 09:48 | XMS_ITS | Encounter Summary ---
:1955 Author Organization [facility] Address [address] [place] [address] Care Team Providers Name Role Phone Luis Pierce MD Primary Care Provider Unavailable Encounter Details Date Type Department Care Team Description 08/02/2001 Office Visit [facility] Michele ury OTALGIA NOS; [address] ACUTE PHARYNGITIS(SORE THROA T); [place] [address] LABORATORY EXAMINATION [phone] Social History Tobacco Use Types Packs/Day Years [...] ASSESSMENT: Otalgia, viral. Acute pharyngitis, viral. PLAN: Stgb-xwb-kntgntb decongestant. IN SUMMARY: ACUTE PHARYNGITIS, OTALGIA cc: CTION MOLDING SUPERVISOR documented in this encounter Plan of Treatment Not on filedocumented as of this encounter Visit Diagnoses Diagnosis Otalgia, unspecified Acute pharyngitis Laboratory examination documented in this encounter Care Teams Tar Chaser Relationship Specialty Start Date End Date Luis Pierce MD PCP - General 05/27/1998 documented as of this encounter
--- OUTSIDE RECORDS SUMMARY | 2022-06-12 09:48 | XMS_ITS | Encounter Summary ---
:1955 Author Organization [facility] Address [address] [place] [address] Care Team Providers Name Role Phone Luis Pierce MD Primary Care Provider Unavailable Reason for Visit Reason Comments BACK PAIN VIA INTERFACE Encounter Details Date Type Department Care Team Description 12/18/1999 Office Visit [facility] Michele ury LOW BACK PAIN(ACUTE)<6 WEEKS ; [address] [place] [address] Social History Tobacco Use Types [...] no bacteria. A: Low back pain. P: Bpoe-ysf-xfpafff ibuprofen 800 mg three times a day. [...] examination documented in this encounter Care Teams Residential Remodeling Subcontractor Relationship Specialty Start Date End Date Luis Pierce MD PCP - General 05/27/1998 documented as of this encounter
--- OUTSIDE RECORDS SUMMARY | 2022-06-12 09:48 | XMS_ITS | Encounter Summary ---
:1955 Author Organization [facility] Address [address] [place] [address] Care Team Providers Name Role Phone Alisha Kimball MD Primary Care Provider Encounter Details Date Type Department Care Team Description 05/03/2000 Orders Only [facility] [address] [place], [place] [address] Social History Tobacco Use Types Packs/Day Years Used Date Smoking Tobacco: Never Assessed Sex Assigned at Date Recorded Not on file documented as of this encounter Plan of Treatment Not on filedocumented as of this encounter Procedures Procedure Name Priority Date/Time Associated Diagnosis Comme nts URINE CULTURE Routine 05/03/2000 6:54 PM Results for this PROSTHETIC MAKEUP DESIGNER procedure are i n the results section . documented in this encounter Results URINE CULTURE (MIDSTREAM) (05/03/2000 6:54 PM PROSTHETIC MAKEUP DESIGNER) [facility] Method Time Signature Specimen Urine [facility] Description Special None [facility] Requests Culture No Growth [facility] After 1 Day Report Status Final [facility] Report Status [id number] [facility] Specimen Anatomical Collection Method Collection Time Receive d Time (Source) Location / / Volume Laterality 05/03/2000 6:54 PM 0 6:55 PROSTHETIC MAKEUP DESIGNER PM PROSTHETIC MAKEUP DESIGNER Full Range [facility] LAB_1 Performing Organization Address City/State/ZIP Code Phon e Number [facility] [phone] [facility] [address] [address] documented in this encounter Visit Diagnoses Not on filedocumented in this encounter Care Teams Health Care Coach Relationship Specialty Start Date End Date Alisha Kimball MD PCP - General 07/08/[address] [place] [address] documented as of this encounter
--- OUTSIDE RECORDS SUMMARY | 2022-06-12 09:48 | XMS_ITS | Encounter Summary ---
:1955 Author Organization [facility] Address [address] [place] [address] Care Team Providers Name Role Phone Alisha Kimball MD Primary Care Provider Encounter Details Date Type Department Care Team Description 08/02/2001 Orders Only [facility] [address] [place], [place] [address] Social History Tobacco Use Types Packs/Day Years Used Date Smoking Tobacco: Never Assessed Sex Assigned at Date Recorded Not on file documented as of this encounter Plan of Treatment Not on filedocumented as of this encounter Procedures Procedure Name Priority Date/Time Associated Diagnosis Comme nts STREP GRP A, RAPID Waiting 08/02/2001 6:56 PM Res ults for this SCREEN READING EFFICIENCY COURSE DIRECTOR procedure are i n the results section. documented in this encounter Results RAPID, GPA STREP SCREEN (WAITI (08/02/2001 6:56 PM READING EFFICIENCY COURSE DIRECTOR) [facility] Method Time Signature Patient Home [phone] [employer] Phone # Patient Work [phone] [employer] Phone # Grp A Rapid Negative [employer] Screen Grp A Culture Negative [employer] Final Specimen Anatomical Collection Method Collection Time Receive d Time (Source) Location / / Volume Laterality 08/02/2001 6:56 PM 2 6:57 READING EFFICIENCY COURSE DIRECTOR PM READING EFFICIENCY COURSE DIRECTOR Full Range [facility] LAB_1 Performing Organization Address City/State/ZIP Code Phon e Number [facility] [phone] [employer] [address] [address] documented in this encounter Visit Diagnoses Not on filedocumented in this encounter Care Teams Maintenance Worker Relationship Specialty Start Date End Date Alisha Kimball MD PCP - General 07/08/05 [address] [place] [address] documented as of this encounter
--- OUTSIDE RECORDS SUMMARY | 2022-06-12 09:48 | XMS_ITS | Encounter Summary ---
:1955 Author Organization [facility] Address [address] [place] [address] Care Team Providers Name Role Phone Luis Pierce MD Primary Care Provider Unavailable Encounter Details Date Type Department Care Team Description 08/18/2001 Office Visit [facility] Hiram Romero MD CONJUNCTIVITIS NOS [address] [place] [address] [place], [place] [phone] Social History Tobacco Use Types Packs/Day Years [...] can follow-up. IN SUMMARY: eye symptoms cc: CTOR CHILD documented in this encounter Plan of Treatment Not on filedocumented as of this encounter Visit Diagnoses Diagnosis Conjunctivitis unspecified Conjunctivitis, unspecified documented in this encounter Care Teams Quality Control Assessor Relationship Specialty Start Date End Date Luis Pierce MD PCP - General 05/27/1998 documented as of this encounter
--- OUTSIDE RECORDS SUMMARY | 2022-06-12 09:48 | XMS_ITS | Encounter Summary ---
:1955 Author [facility] Address [address], [place] [address] Care Team Providers Name Role Phone Luis Pierce MD Primary Care Provider Unavailable Encounter Details Date Type Department Care Team Description 11/22/2000 Orders Only [facility] Prac Miky Salinas MD [address] [place] [address] [place] [address] [phone] (Wo rk) Social History Tobacco Use Types Packs/Day Years Used Date Smoking Tobacco: Never Assessed Sex Assigned at Date Recorded Not on file documented as of this encounter Plan of Treatment Not on filedocumented as of this encounter Visit Diagnoses Not on filedocumented in this encounter Care Teams Motor Equipment Sergeant Relationship Specialty Start Date End Date Luis Pierce MD PCP - General 05/27/1998 documented as of this encounter
--- OUTSIDE RECORDS SUMMARY | 2022-06-12 09:48 | XMS_ITS | Encounter Summary ---
:1955 Author Organization [facility] Address [address] [place] [address] Care Team Providers Name Role Phone Alisha Kimball MD Primary Care Provider Encounter Details Date Type Department Care Team Description 05/03/2000 Orders Only [facility] [address] [place], [place] [phone] Social History Tobacco Use Types Packs/Day Years Used Date Smoking Tobacco: Never Assessed Sex Assigned at Date Recorded Not on file documented as of this encounter Plan of Treatment Not on filedocumented as of this encounter Procedures Procedure Name Priority Date/Time Associated Diagnosis Comme nts ACCUCHECK GLU Waiting 05/03/2000 6:54 PM Results for this RANDOM <8HR FAST PARACHUTE TAPER procedure a re in (WAITING) the results section. UA WITH MICRO Waiting 05/03/2000 6:54 PM Results for this PARACHUTE TAPER procedure are i n the results section. ESR Waiting 05/03/2000 6:54 PM Results f or this PARACHUTE TAPER procedure are i n the results section. documented in this encounter Results ESR (05/03/2000 6:54 PM PARACHUTE TAPER) P athologist Signature ESR 12 0 - 20 [facility] mm/hr Specimen Anatomical Collection Method Collection Time Receive d Time (Source) Location / / Volume Laterality 05/03/2000 6:54 PM 0 6:55 PARACHUTE TAPER PM PARACHUTE TAPER Full Range [facility] LAB_1 Performing Organization Address City/State/ZIP Code Phon e Number [facility] [phone] [facility] [address] [phone] UA WITH MICRO (05/03/2000 6:54 PM PARACHUTE TAPER) P athologist Signature Appr Yellow [facility] Appr [...] Volume Laterality 05/03/2000 6:54 PM 0 6:55 PARACHUTE TAPER PM PARACHUTE TAPER Full Range [employer] LAB_1 Performing Organization Address City/[facility] [address] [facility] Code Phon e Number [facility] [phone] [facility] [address] [place] [address] ACCUCHECK GLU RANDOM <8HR FAST WAITING (05/03/2000 6:54 PM PARACHUTE TAPER) Component Value Ref Test Analysis Performed At Patholo gist Range Method Time Signature Glucose, bG 92 65 - 115 [facility] Strip mg/dl Glucose, bG Semi-quantitative result (bG) may be [facility] Strip 5-10% lower than quantitative result. Hours Fasting 2 hours [facility] Specimen Anatomical Collection Method Collection Time Receive d Time (Source) Location / / Volume Laterality 05/03/2000 6:54 PM 0 6:55 PARACHUTE TAPER PM PARACHUTE TAPER Full Range [employer] LAB_1 Performing Organization Address [facility] [address]/[facility] Phon e Number [employer] [phone] [employer] [address] [phone] documented in this encounter Visit Diagnoses Not on filedocumented in this encounter Care Teams Saw Grinder Relationship Specialty Start Date End Date Alisha Kimball MD PCP - General 07/08/05 [address] [place] [address] documented as of this encounter
--- OUTSIDE RECORDS SUMMARY | 2022-06-12 09:48 | XMS_ITS | Encounter Summary ---
:1955 Author Organization [facility] Address [address] [place] [address] Care Team Providers Name Role Phone Luis [...] cc: Radiology [place] Full Range I [facility] NTIFIC RECRUITER documented in this encounter Plan of Treatment Not on filedocumented as of this encounter Procedures Procedure Name Priority Date/Time Associated Diagnosis Comme nts RADEX SPI LUMBOSAC 05/03/2000 12:00 AM Re sults for this 2/3 VIEWS SCIENTIFIC RECRUITER procedure are i n the results section. documented in this encounter Results L-SPINE 2-3 VIEWS (05/03/2000 12:00 AM SCIENTIFIC RECRUITER) Anatomical Region Laterality Modality Other Specimen (Source) [...] on filedocumented in this encounter Care Teams Lvn Lpn Relationship Specialty Start Date End Date Luis Pierce MD PCP - General 05/27/1998 documented as of this encounter
--- OUTSIDE RECORDS SUMMARY | 2022-06-12 09:48 | XMS_ITS | Encounter Summary ---
:1955 Author Organization [facility] Address [address] [place] [address] Care Team Providers Name Role Phone Luis Pierce MD Primary Care Provider Unavailable Reason for Visit Reason Comments ANKLE PAIN VIA INTERFACE Encounter Details Date Type Department Care Team Description 10/04/1999 Orders [facility] SPRAIN/STRAIN OF ANKLE NOS; [facility] LOWER LEG INJURY NOS [place], [place] [phone] Social History Tobacco Use Types Packs/Day Years [...] and recheck with her usual clinic, at [place], for follow-up care. A: Right ankle sprain. P: As above. IN SUMMARY: RIGHT ANKLE SPRAIN cc: L DESK CLERK documented in this encounter Procedure Notes Brittney [...] cc: Radiology SP Full Range I Spucc L DESK CLERK documented in this encounter Plan of Treatment Not on filedocumented as of this encounter Procedures Procedure Name Priority Date/Time Associated Diagnosis Comme nts RADEX ANKLE COMPL 10/04/1999 12:00 AM Lower Leg Injury Nos Results for this MINIMUM 3 VIEWS HOTEL DESK CLERK procedure ar e in the results section. documented in this encounter Results ANKLE 3 VIEWS (10/04/1999 12:00 AM HOTEL DESK CLERK) Anatomical Region Laterality Modality Other Specimen (Source) [...] foot documented in this encounter Care Teams Fiber Glass Worker Relationship Specialty Start Date End Date Luis Pierce MD PCP - General 05/27/1998 documented as of this encounter
--- OUTSIDE RECORDS SUMMARY | 2022-06-12 09:48 | XMS_ITS | Encounter Summary ---
:1955 Author Organization [facility] Address [address] [place] [address] Care Team Providers Name Role Phone Luis Pierce MD Primary Care Provider Unavailable Reason for Visit Reason Comments PAIN, FOOT VIA INTERFACE Encounter Details Date Type Department Care Team Description 02/17/2000 Office Visit [facility] Anam Mosquera DPM PAIN IN LIMB Surgery/Podiatry [address] [place], [place] [address] (Wo rk) Social History [...] limb documented in this encounter Care Teams Certified Control Systems Technician Relationship Specialty Start Date End Date Luis Pierce MD PCP - General 05/27/1998 documented as of this encounter
--- OUTSIDE RECORDS SUMMARY | 2022-06-12 09:48 | XMS_ITS | Encounter Summary ---
:1955 Author Organization [facility] Address [address], [place] [address] Care Team Providers Name Role Phone Miky [...] Component Value Ref Test Analysis Performed At [facility] Range Method Time Signature Dermatopathology [facility] D[facility] Patient: BENY VERDUGO : 09/11/1937 Med Rec: [id number] Phone: ??-- Date of BX: 01/15/2000 Date Acc: 01/16/2000 Date of DX: 01/20/2000 Physician: NITISH GOTTI MD INTERP: Mat Delgado,Miky Soni MICRO: ??The specimen shows hyperkeratosis with basaloid epidermal hyperplasia and horn cyst formation typical of a seborrheic keratosis. DIAGNOSIS: ??NECK, LEFT : SEBORRHEIC KERATOSIS SNOMED-T: ??[id number] SNOMED-M: [id number] ICD9-CM: 702.19 {} Specimen (Source) Anatomical Location Collection Method / Collectio n Time Received Time / Laterality Volume 01/15/2000 Nitish Gotti MD PAPS Performing Organization Address City/State/ZIP Code Phon e Number [facility] DER[facility]ATH[facility]Y [address] [place] [address] documented in this encounter Visit Diagnoses Diagnosis Other seborrheic keratosis documented in this encounter Care Teams Digital Content Marketing Manager Relationship Specialty Start Date End Date Miky Sultana MD PCP - General 09/21/01 07/07/05 [place] [address] documented as of this encounter
--- OUTSIDE RECORDS SUMMARY | 2022-06-12 09:48 | XMS_ITS | Encounter Summary ---
:1955 Author Organization [facility] Address [address] [place] [address] Care Team Providers Name Role Phone Luis Pierce MD Primary Care Provider Unavailable Reason for Visit Reason Comments BACK PAIN VIA INTERFACE Encounter Details Date Type Department Care Team Description 05/03/2000 Orders Only [facility] Michele urtyler LOW BACK PAIN(ACUTE)<6 WEEKS ; [address] [place] [address] Social History Tobacco Use Types [...] normal. IN SUMMARY: ATYPICAL BACK PAIN cc: EGE ARCHIVIST documented in this encounter Plan of Treatment Not on filedocumented as of this encounter Visit Diagnoses Diagnosis Lumbago Laboratory examination documented in this encounter Care Teams Manufacturing Teacher Relationship Specialty Start Date End Date Luis Pierce MD PCP - General 05/27/1998 documented as of this encounter
--- OUTSIDE RECORDS SUMMARY | 2022-06-12 09:48 | XMS_ITS | Encounter Summary ---
:1955 Author [facility] Address [address], [place] [address] Care Team Providers Name Role Phone Luis Pierce MD Primary Care Provider Unavailable Encounter Details Date Type Department Care Team Description 08/09/2001 Orders Only [facility] Prac Miky Salinas MD [address] [place] [address] [place] [address] [phone] (Wo rk) Social History Tobacco Use Types Packs/Day Years Used Date Smoking Tobacco: Never Assessed Sex Assigned at Date Recorded Not on file documented as of this encounter Plan of Treatment Not on filedocumented as of this encounter Visit Diagnoses Not on filedocumented in this encounter Care Teams Welder Explosion Relationship Specialty Start Date End Date Luis Pierce MD PCP - General 05/27/1998 documented as of this encounter
--- OUTSIDE RECORDS SUMMARY | 2022-06-12 09:48 | XMS_ITS | Encounter Summary ---
:1955 Author Organization [facility] Address [address] [place] [address] Support Name Relationship Address Phone Gino Velasco Unavailable [address] [phone] [place] [address] Pt Declined 01/01/2020 Unavailable Unavailable Unavailab le Care Team Providers Name Role Phone Luis Pierce MD Primary Care Provider Unavailable Encounter Details Date Type Department Care Team Description 11/22/2000 Office Visit [facility] Miky Salinas MD COUGH; [address] [place] [address] [place] [address] [phone] (Wo rk) Social History Tobacco Use Types [...] ronic documented in this encounter Care Teams Monitor Technician Relationship Specialty Start Date End Date Luis Pierce MD PCP - General 05/27/1998 documented as of this encounter
--- OUTSIDE RECORDS SUMMARY | 2022-06-12 09:49 | XMS_ITS | Encounter Summary ---
:1955 Author [facility] Address [address] [place] [address] Care Team Providers Name Role Phone Luis [...] Waiting 08/30/1998 8:22 PM Results for this RRTS procedure are i n the results section . documented in this encounter Results UA WITH MICRO (08/30/1998 8:22 PM RRTS) P athologist Signature Appr Yellow [facility] Appr [...] Volume Laterality 08/30/1998 8:22 PM 9 8:23 RRTS PM RRTS Im Trauma [facility] LAB_1 Performing Organization Address City/State/ZIP Code Phon e Number [facility] [phone] [address] documented in this encounter Visit Diagnoses Not on filedocumented in this encounter Care Teams Integration Director Relationship Specialty Start Date End Date Luis Pierce MD PCP - General 05/27/1998 documented as of this encounter
--- OUTSIDE RECORDS SUMMARY | 2022-06-12 09:49 | XMS_ITS | Encounter Summary ---
:1955 Author Organization [facility] Address [address] [place] [address] Care Team Providers Name Role Phone Luis [...] 08/19/1998 9:37 AM Resu lts for this FAMILY READINESS SUPPORT ASSISTANT procedure are i n the results section. PHONED RESULTS Routine 08/19/1998 9:37 AM Results for this FAMILY READINESS SUPPORT ASSISTANT procedure are i n the results section. documented in this encounter Results PHONED RESULTS (08/19/1998 9:37 AM FAMILY READINESS SUPPORT ASSISTANT) [facility] Method Time Signature Phoned HGB called to Meaghan Guerrero ([place] OB) at [facility] Results [phone] on [id number] Specimen Anatomical Collection Method Collection Time Receive d Time (Source) Location / / Volume Laterality 08/19/1998 9:37 AM 9 9:38 FAMILY READINESS SUPPORT ASSISTANT AM FAMILY READINESS SUPPORT ASSISTANT Luis Pierce MD LAB_1 Performing Organization Address City/State/ZIP Code Phon e Number [facility] [phone] [facility] [address] [place] [address] (ABNORMAL) HEMOGLOBIN, BLOOD (08/19/1998 9:37 AM FAMILY READINESS SUPPORT ASSISTANT) [facility] Method Time Signature Hemoglobin 7.7 (L) 12.0 - [facility] 16.0 g/dl Hemoglobin Result [facility] Checked Specimen Anatomical Collection Method Collection Time Receive d Time (Source) Location / / Volume Laterality 08/19/1998 9:37 AM 9 9:38 FAMILY READINESS SUPPORT ASSISTANT AM FAMILY READINESS SUPPORT ASSISTANT Luis Pierce MD LAB_1 Performing Organization Address City/State/ZIP Code Phon e Number [facility] [phone] [facility] [address] [address] documented in this encounter Visit Diagnoses Not on filedocumented in this encounter Care Teams Shoe Maker Relationship Specialty Start Date End Date Luis Pierce MD PCP - General 05/27/1998 documented as of this encounter
--- OUTSIDE RECORDS SUMMARY | 2022-06-12 09:49 | XMS_ITS | Encounter Summary ---
:1955 Author Organization [facility] Address [address] [place] [address] Care Team Providers Name Role Phone Luis Pierce MD Primary Care Provider Unavailable Encounter Details Date Type Department Care Team Description 07/16/1998 Office Visit [facility] EMILY Pierce MENSTRUATION; and Gynecology Luis Evans MD FEMALE STRESS INCONTINENCE [address] [place], [place] [phone] Social History Tobacco Use Types Packs/Day Years [...] time of her outpatient work up. cc: ET PULLER documented in this encounter Plan of Treatment Not on filedocumented as of this encounter Visit Diagnoses Diagnosis Excessive or frequent menstruation Female stress incontinence documented in this encounter Care Teams Loading Unit Operator Relationship Specialty Start Date End Date Luis Pierce MD PCP - General 05/27/1998 documented as of this encounter
--- OUTSIDE RECORDS SUMMARY | 2022-06-12 09:49 | XMS_ITS | Encounter Summary ---
:1955 Author Organization [facility] Address [address] [place] [address] Care Team Providers Name Role Phone Luis Pierce MD Primary Care Provider Unavailable Reason for Visit Reason Comments UTI VIA INTERFACE Encounter Details Date Type Department Care Team Description 12/12/1998 Office Visit [facility] ury UTI [address] [place] [address] Social History Tobacco Use Types Packs/Day Years Used Date Smoking Tobacco: Never Assessed Sex Assigned at Date Recorded Not on file documented as of this encounter Plan of Treatment Not on filedocumented as of this encounter Visit Diagnoses Diagnosis Urinary tract infection, site not specif ied documented in this encounter Care Teams Oyster Sorter Relationship Specialty Start Date End Date Luis Pierce MD PCP - General 05/27/1998 documented as of this encounter
--- OUTSIDE RECORDS SUMMARY | 2022-06-12 09:49 | XMS_ITS | Encounter Summary ---
:1955 Author Organization [facility] Address [address] [place] [address] Care Team Providers Name Role Phone Luis Pierce MD Primary Care Provider Unavailable Encounter Details Date Type Department Care Team Description 08/27/1998 Office Visit [facility] ANDREEA Pierce TPART and Gynecology Luis Evans MD FOLLOW-UP [address] [place] [address] Social History Tobacco Use Types [...] suture removal and repeat wound check. cc: CHMAN documented in this encounter Plan of Treatment Not on filedocumented as of this encounter Visit Diagnoses Diagnosis Routine follow-up documented in this encounter Care Teams Hooker Machine Tender Relationship Specialty Start Date End Date Luis Pierce MD PCP - General 05/27/1998 documented as of this encounter
--- OUTSIDE RECORDS SUMMARY | 2022-06-12 09:49 | XMS_ITS | Encounter Summary ---
:1955 Author Organization [facility] Address [address] [place] [address] Care Team Providers Name Role Phone Luis Pierce MD Primary Care Provider Unavailable Encounter Details Date Type Department Care Team Description 08/19/1998 Office Visit [facility] Regan Pierce rt SURGERY FOLLOW-UP Gynecology MD Cristina [address] [place] [address] Social History Tobacco Use Types Packs/Day Years Used Date Smoking Tobacco: Never Assessed Sex Assigned at Date Recorded Not on file documented as of this encounter Progress Notes Luis Pierce - 08/19/1998 12:00 AM REJOINER Pt is a 43-year-old para 3004 who [...] see pre-operative evaluation for further details. cc: INER documented in this encounter Plan of Treatment Not on filedocumented as of this encounter Visit Diagnoses Diagnosis Follow-up examination following surgery documented in this encounter Care Teams Pelletizer Relationship Specialty Start Date End Date Luis Pierce MD PCP - General 05/27/1998 documented as of this encounter
--- OUTSIDE RECORDS SUMMARY | 2022-06-12 09:49 | XMS_ITS | Encounter Summary ---
:1955 Author Organization [facility] Address [address] [place] [address] Care Team Providers Name Role Phone Luis [...] 09/30/1998 11:03 AM Res ults for this MINE BOSS procedure are i n the results section. documented in this encounter Results (ABNORMAL) HEMOGLOBIN, BLOOD (09/30/1998 11:03 AM MINE BOSS) [facility] Method Time Signature Hemoglobin 11.9 (L) 12.0 - [facility] 16.0 g/dl Hemoglobin Result [facility] Checked Specimen Anatomical Collection Method Collection Time Receive d Time (Source) Location / / Volume Laterality 09/30/1998 11:03 09/30/1998 AM MINE BOSS 11:04 AM MINE BOSS Luis Pierce MD LAB_1 Performing Organization Address City/State/ZIP Code Phon e Number [facility] [phone] [facility] [address] [address] documented in this encounter Visit Diagnoses Not on filedocumented in this encounter Care Teams Horser Up Relationship Specialty Start Date End Date Luis Pierce MD PCP - General 05/27/1998 documented as of this encounter
--- OUTSIDE RECORDS SUMMARY | 2022-06-12 09:49 | XMS_ITS | Encounter Summary ---
:1955 Author Organization [facility] Address [address] [place] [address] Care Team Providers Name Role Phone Alisha [...] on filedocumented in this encounter Care Teams Asp Developer Relationship Specialty Start Date End Date Alisha Kimball MD PCP - General 07/08/[address] [place], [place] [id number] documented as of this encounter
--- OUTSIDE RECORDS SUMMARY | 2022-06-12 09:49 | XMS_ITS | Encounter Summary ---
:1955 Author Organization [facility] Address [address] [place] [address] Care Team Providers Name Role Phone Luis [...] bleeding documented in this encounter Care Teams Intraoperative Neuro Tech Relationship Specialty Start Date End Date Luis Pierce MD PCP - General 05/27/1998 documented as of this encounter
--- OUTSIDE RECORDS SUMMARY | 2022-06-12 09:49 | XMS_ITS | Encounter Summary ---
:1955 Author Organization [facility] Address [address] [address] Care Team Providers Name Role Phone Alisha [...] filedocumented in this encounter Care Teams Manager Legal Relationship Specialty Start Date End Date Alisha Kimball MD PCP - General 07/08/[address] [place] [address] documented as of this encounter
--- OUTSIDE RECORDS SUMMARY | 2022-06-12 09:49 | XMS_ITS | Encounter Summary ---
:1955 Author Organization [facility] Address [address] [place] [address] Care Team Providers Name Role Phone Luis Pierce MD Primary Care Provider Unavailable Encounter Details Date Type Department Care Team Description 09/18/1998 Orders Only Francisco Gupta MD [address] [place], [place] [address] (Wo rk) Social History Tobacco Use Types Packs/Day Years Used Date Smoking Tobacco: Never Assessed Sex Assigned at Date Recorded Not on file documented as of this encounter Plan of Treatment Not on filedocumented as of this encounter Procedures Procedure Name Priority Date/Time Associated Diagnosis Comme nts URINE CULTURE Routine 09/18/1998 4:33 PM Results for this DEMO COORDINATOR procedure are i n the results section . documented in this encounter Results URINE CULTURE (MIDSTREAM) (09/18/1998 4:33 PM DEMO COORDINATOR) [facility] Method Time Signature Specimen Urine [facility] Description Special None [facility] Requests Culture No Growth [facility] After 1 Day Report Status Final [facility] Report Status [id number] [facility] Specimen Anatomical Collection Method Collection Time Receive d Time (Source) Location / / Volume Laterality 09/18/1998 4:33 PM 199 9 4:34 DEMO COORDINATOR PM DEMO COORDINATOR Francisco Gupta MD LAB_1 Performing Organization Address City/State/ZIP Code Phon e Number [facility] [phone] [facility] [address] [address] documented in this encounter Visit Diagnoses Not on filedocumented in this encounter Care Teams Technology Infusion Specialist Relationship Specialty Start Date End Date Luis Pierce MD PCP - General 05/27/1998 documented as of this encounter
--- OUTSIDE RECORDS SUMMARY | 2022-06-12 09:49 | XMS_ITS | Encounter Summary ---
:1955 Author Organization [facility] Address [address] [place] [address] Care Team Providers Name Role Phone Luis Pierce MD Primary Care Provider Unavailable Encounter Details Date Type Department Care Team Description 12/17/1998 Orders Only Hafsa Lei A, PAYROLL CONSULTANT, MUD ANALYSIS WELL LOGGING OPERATOR [address] [place], [place] [address] (Wo rk) Social History [...] [facility] Casts 0 /lpf [facility] Other 0 [facility] Specimen Anatomical Collection Method Collection Time Receive d Time (Source) Location / / Volume Laterality 12/17/1998 4:36 PM 9 4:37 CDT PM CDT Emily Lei APRN, CNP LAB_1 Performing Organization Address City/State/ZIP Code Phon e Number [facility] [phone] [facility] [address] [address] documented in this encounter Visit Diagnoses Not on filedocumented in this encounter Care Teams Restaurant Bartender Relationship Specialty Start Date End Date Luis Pierce MD PCP - General 05/27/1998 documented as of this encounter
--- OUTSIDE RECORDS SUMMARY | 2022-06-12 09:49 | XMS_ITS | Encounter Summary ---
:1955 Author Organization [facility] Address [address] [place] [address] Care Team Providers Name Role Phone Alisha [...] on filedocumented in this encounter Care Teams Window Display Designer Relationship Specialty Start Date End Date Alisha Kimball MD PCP - General 07/08/[address] [place], [place] [id number] documented as of this encounter
--- OUTSIDE RECORDS SUMMARY | 2022-06-12 09:49 | XMS_ITS | Encounter Summary ---
:1955 Author Organization [facility] Address [address] [place] [address] Care Team Providers Name Role Phone Luis [...] cyst documented in this encounter Care Teams Tax Economist Relationship Specialty Start Date End Date Luis Pierce MD PCP - General 05/27/1998 documented as of this encounter
--- OUTSIDE RECORDS SUMMARY | 2022-06-12 09:49 | XMS_ITS | Encounter Summary ---
:1955 Author Organization [facility] Address [address] [place] [address] Care Team Providers Name Role Phone Luis Pierce MD Primary Care Provider Unavailable Encounter Details Date Type Department Care Team Description 12/17/1998 Orders Only Hafsa Lei APRN, CNP [address] [place], [place] [address] (Wo rk) Social History [...] Component Value Ref Test Analysis Performed At [facility] Method Time Signature Specimen Urine [facility] Description Special Sensitivity [facility] Requests Culture No Growth [facility] After 1 Day Report Status Final [facility] Report Status [id number] [facility] Specimen Anatomical Collection Method Collection Time Receive d Time (Source) Location / / Volume Laterality 12/17/1998 4:36 PM 9 7:24 CDT PM CDT Emily Lei APRN, CNP LAB_1 Performing Organization Address City/State/ZIP Code Phon e Number [facility] [phone] [facility] [address] [place] [address] documented in this encounter Visit Diagnoses Not on filedocumented in this encounter Care Teams Patient Flow Coordinator Relationship Specialty Start Date End Date Lius Pierce MD PCP - General 05/27/1998 documented as of this encounter
--- OUTSIDE RECORDS SUMMARY | 2022-06-12 09:49 | XMS_ITS | Encounter Summary ---
:1955 Author Organization [facility] Address [address] [place] [address] Care Team Providers Name Role Phone Miky [...] encounter Results PATHOLOGY (03/26/1998 4:53 PM CDT) [facility] gist Method Time Signature Source/Site Endo [facility] Aspirate Report Status See Separate [facility] Report Specimen Anatomical Collection Method Collection Time Receive d Time (Source) Location / / Volume Laterality 03/26/1998 4:53 PM 8 4:54 CDT PM CDT Luis Pierce MD LAB_1 Performing Organization Address City/State/ZIP Code Phon e Number [facility] [phone] [address] documented in this encounter Visit Diagnoses Not on filedocumented in this encounter Care Teams Regional Account Manager Relationship Specialty Start Date End Date Miky Sultana MD PCP - General 06/17/1996 05/26/1998 [address] [place] [address] documented as of this encounter
--- OUTSIDE RECORDS SUMMARY | 2022-06-12 09:49 | XMS_ITS | Encounter Summary ---
:1955 Author Organization [facility] Address [address] [place] [address] Care Team Providers Name Role Phone Luis Pierce MD Primary Care Provider Unavailable Encounter Details Date Type Department Care Team Description 09/30/1998 Office Visit [facility] Regan Pierce rt SURGERY FOLLOW-UP Gynecology MD Cristina [address] [place] [address] Social History Tobacco Use Types [...] earlier on a as needed basis. cc: GER RELATIONSHIP documented in this encounter Plan of Treatment Not on filedocumented as of this encounter Visit Diagnoses Diagnosis Follow-up examination following surgery documented in this encounter Care Teams Bargain Table Clerk Relationship Specialty Start Date End Date Luis Pierce MD PCP - General 05/27/1998 documented as of this encounter
--- OUTSIDE RECORDS SUMMARY | 2022-06-12 09:49 | XMS_ITS | Encounter Summary ---
:1955 Author Organization [facility] Address [address] [place] [address] Care Team Providers Name Role Phone Luis Pierce MD Primary Care Provider Unavailable Encounter Details Date Type Department Care Team Description 12/12/1998 Office Visit Luis Lozano MD [address] [place] [address] (Wo rk) Social History Tobacco [...] on filedocumented in this encounter Care Teams Engineering Psychologist Relationship Specialty Start Date End Date Luis Pierce MD PCP - General 05/27/1998 documented as of this encounter
--- OUTSIDE RECORDS SUMMARY | 2022-06-12 09:49 | XMS_ITS | Encounter Summary ---
:1955 Author Organization [facility] Address [address] [place] [address] Care Team Providers Name Role Phone Miky Sultana MD Primary Care Provider Encounter Details Date Type Department Care Team Description 05/16/1998 Orders Only [facility] Kari, SCREENING MAMM-MAILG [address] Luis Evans MD NEOPL-OTHER [place], [place] [phone] Social History Tobacco Use Types Packs/Day Years [...] AM Screening Mamm-Mailg Results for this SCREENING NATIONAL RECRUITER Neopl-Other procedure are i n the results section. documented in this encounter Results MAMMOGRAM, SCREENING (05/16/1998 12:00 AM NATIONAL RECRUITER) Anatomical Region Laterality Modality Breast Other Specimen (Source) Anatomical Location Collection Method / Collectio n Time Received Time / Laterality Volume 05/16/1998 Transcriptions Brenden Soto M - 05/16/1998 12:00 AM [facility] LINICAL DATA: SCREENING INTERPRETATION: Bilateral mammogram 05/16/98: [...] mammogram documented in this encounter Care Teams Rail Project Engineer Relationship Specialty Start Date End Date Miky Sultana MD PCP - General 06/17/1996 05/26/[address] [place] [address] [place] [address] documented as of this encounter
--- OUTSIDE RECORDS SUMMARY | 2022-06-12 09:49 | XMS_ITS | Encounter Summary ---
:1955 Author Organization [facility] Address [address] [place] [address] Care Team Providers Name Role Phone Luis Pierce MD Primary Care Provider Unavailable Encounter Details Date Type Department Care Team Description 12/12/1998 Orders Only Epic, [place] [address] Social History Tobacco Use Types Packs/Day Years [...] URINE CULTURE (MIDSTREAM) (12/12/1998 7:06 PM CDT) [facility] Method Time Signature Specimen Urine [facility] Description Special None [facility] Requests Culture No Growth [facility] After 1 Day Report Status Final [facility] Report Status [id number] [facility] Specimen Anatomical Collection Method Collection Time Receive d Time (Source) Location / / Volume Laterality 12/12/1998 7:06 PM 199 9 7:07 CDT PM CDT [facility]ative [facility] 12/12/1998 7:06 PM CDT Ordered by [facility] Internal Processing Epic LAB_1 Performing Organization Address City/State/ZIP Code Phon e Number [facility] [phone] [facility] [address] [address] documented in this encounter Visit Diagnoses Not on filedocumented in this encounter Care Teams Tassel Snipper Relationship Specialty Start Date End Date Luis Pierce MD PCP - General 05/27/1998 documented as of this encounter
--- OUTSIDE RECORDS SUMMARY | 2022-06-12 09:49 | XMS_ITS | Encounter Summary ---
:1955 Author Organization [facility] Address [address] [place] [address] Care Team Providers Name Role Phone Luis Pierce MD Primary Care Provider Unavailable Encounter Details Date Type Department Care Team Description 12/12/1998 Orders Only Epic, [place] [address] Social History Tobacco Use Types Packs/Day Years [...] URINE CULTURE IF (12/12/1998 6:29 PM CDT) [facility] Method Time Signature Urine Cult If UC Not [facility] Indicated Specimen Anatomical Collection Method Collection Time Receive d Time (Source) Location / / Volume Laterality 12/12/1998 6:29 PM 199 9 6:30 CDT PM CDT Narrative [facility] - 12/12/1998 6:29 PM CDT Ordered by [place] [facility] Internal Processing Epic LAB_1 Performing Organization Address City/State/ZIP Code Phon e Number [facility] [phone] [facility] [address] [address] UA WITH MICRO (12/12/1998 6:29 [...] Squamous Bact 0 [facility] Casts 0 /lpf [facility] Specimen Anatomical Collection Method Collection Time Receive d Time (Source) Location / / Volume Laterality 12/12/1998 6:29 PM 9 6:30 CDT PM CDT [facility]ative [facility] 12/12/1998 6:29 PM CDT Ordered by [facility] Internal Processing Epic LAB_1 Performing Organization Address City/State/ZIP Code Phon e Number [facility] [phone] [facility] [address] [address] documented in this encounter Visit Diagnoses Not on filedocumented in this encounter Care Teams Cashiers Bussers Food Runners Relationship Specialty Start Date End Date Luis Pierce MD PCP - General 05/27/1998 documented as of this encounter
--- OUTSIDE RECORDS SUMMARY | 2022-06-12 09:49 | XMS_ITS | Encounter Summary ---
:1955 Author Organization [facility] Address [address] [place] [address] Care Team Providers Name Role Phone Alisha [...] on filedocumented in this encounter Care Teams Data Software Engineer Relationship Specialty Start Date End Date Alisha Kimball MD PCP - General 07/08/[address] [place] [address] documented as of this encounter
--- OUTSIDE RECORDS SUMMARY | 2022-06-12 09:49 | XMS_ITS | Encounter Summary ---
:1955 Author Organization [facility] Address [address] [place] [address] Care Team Providers Name Role Phone Luis Pierce MD Primary Care Provider Unavailable Encounter Details Date Type Department Care Team Description 09/01/1998 Office Visit Francisco Gupta MD [address] [place], [place] [address] (Wo rk) Social History [...] of pyelonephritis, follow up as needed. cc: NCIAL SERVICES COUNSELOR documented in this encounter Plan of Treatment Not on filedocumented as of this encounter Visit Diagnoses Not on filedocumented in this encounter Care Teams Candle Molder Hand Relationship Specialty Start Date End Date Luis Pierce MD PCP - General 05/27/1998 documented as of this encounter
--- OUTSIDE RECORDS SUMMARY | 2022-06-12 09:49 | XMS_ITS | Encounter Summary ---
:1955 Author Organization [facility] Address [address] [address] Care Team Providers Name Role Phone Luis Pierce MD Primary Care Provider Unavailable Encounter Details Date Type Department Care Team Description 09/01/1998 Office Visit Deepthi Ashraf M D NONSPECIF SKIN ERUPT NEC [address] [place] [address] (Wo rk) Social History Tobacco Use Types Packs/Day Years Used Date Smoking Tobacco: Never Assessed Sex Assigned at Date Recorded Not on file documented as of this encounter Plan of Treatment Not on filedocumented as of this encounter Visit Diagnoses Diagnosis Rash and other nonspecific skin eruption documented in this encounter Care Teams Lease Analyst Relationship Specialty Start Date End Date Luis Pierce MD PCP - General 05/27/1998 documented as of this encounter
--- OUTSIDE RECORDS SUMMARY | 2022-06-12 09:49 | XMS_ITS | Encounter Summary ---
:1955 Author Organization [facility] Address [address] [place] [address] Care Team Providers Name Role Phone Miky Sultana MD Primary Care Provider Encounter Details Date Type Department Care Team Description 05/13/1998 Office Visit [facility] GAB Pierce EXAMINATION; and Gynecology Luis Evans MD EXCESSIVE MENSTRUATION; [address] [place]; [place] [address] FEMALE STRESS INCONTINENCE [phone] Social History Tobacco Use Types Packs/Day Years [...] be undertaken for her urinary incontinence. cc: MILL OPERATOR documented in this encounter Plan of Treatment Not on filedocumented as of this encounter Visit Diagnoses Diagnosis Gynecological examination Excessive or frequent menstruation Metrorrhagia Female stress incontinence documented in this encounter Care Teams Transition Teacher Relationship Specialty Start Date End Date Miky Sultana MD PCP - General 06/17/1996 05/26/[address] [place] [address] documented as of this encounter
--- OUTSIDE RECORDS SUMMARY | 2022-06-12 09:49 | XMS_ITS | Encounter Summary ---
:1955 Author Organization [facility] Address [address] [place] [address] Care Team Providers Name Role Phone Luis Pierce MD Primary Care Provider Unavailable Encounter Details Date Type Department Care Team Description 09/03/1998 Office Visit Deepthi Ashraf M D [address] [place] [address] (Wo rk) Social History Tobacco Use [...] within the next week. IN SUMMARY: RASH RCANE PLANTER documented in this encounter Plan of Treatment Not on filedocumented as of this encounter Visit Diagnoses Not on filedocumented in this encounter Care Teams Earth Boring Machine Operator Relationship Specialty Start Date End Date Luis Pierce MD PCP - General 05/27/1998 documented as of this encounter
--- OUTSIDE RECORDS SUMMARY | 2022-06-12 09:49 | XMS_ITS | Encounter Summary ---
:1955 Author Organization [facility] Address [address] [place] [address] Care Team Providers Name Role Phone Alisha [...] on filedocumented in this encounter Care Teams Public Policy Manager Relationship Specialty Start Date End Date Alisha Kimball MD PCP - General 07/08/[address] [place], [place] [id number] documented as of this encounter
--- OUTSIDE RECORDS SUMMARY | 2022-06-12 09:49 | XMS_ITS | Encounter Summary ---
:1955 Author Organization [facility] Address [address] [place] [address] Care Team Providers Name Role Phone Luis Pierce MD Primary Care Provider Unavailable Encounter Details Date Type Department Care Team Description 08/22/1998 Other Services Indra Willams MD [facility] Social History Tobacco Use Types Packs/Day Years Used Date Smoking Tobacco: Never Assessed Sex Assigned at Date Recorded Not on file documented as of this encounter Plan of Treatment Not on filedocumented as of this encounter Visit Diagnoses Diagnosis Excessive or frequent menstruation Dysplasia of cervix (uteri) Cervicitis and endocervicitis documented in this encounter Care Teams Taping Foreman Relationship Specialty Start Date End Date Luis Pierce MD PCP - General 05/27/1998 documented as of this encounter
--- OUTSIDE RECORDS SUMMARY | 2022-06-12 09:49 | XMS_ITS | Encounter Summary ---
:1955 Author Organization [facility] Address [address] [place] [address] Care Team Providers Name Role Phone Luis Pierce MD Primary Care Provider Unavailable Encounter Details Date Type Department Care Team Description 09/18/1998 Orders Only Francisco Gupta MD [address] [place], [place] [address] (Wo rk) Social History Tobacco Use Types Packs/Day Years Used Date Smoking Tobacco: Never Assessed Sex Assigned at Date Recorded Not on file documented as of this encounter Plan of Treatment Not on filedocumented as of this encounter Procedures Procedure Name Priority Date/Time Associated Diagnosis Comme nts UA WITH MICRO Routine 09/18/1998 4:33 PM Results for this DOCUMENT MANAGEMENT SPECIALIST procedure are i n the results section . documented in this encounter Results UA WITH MICRO (09/18/1998 4:33 PM DOCUMENT MANAGEMENT SPECIALIST) P athologist Signature Appr Yellow [facility] Appr [...] Volume Laterality 09/18/1998 4:33 PM 9 4:34 DOCUMENT MANAGEMENT SPECIALIST PM DOCUMENT MANAGEMENT SPECIALIST Francisco Gupta MD LAB_1 Performing Organization Address City/State/ZIP Code Phon e Number [facility] [phone] [facility] [address] [place] [phone] documented in this encounter Visit Diagnoses Not on filedocumented in this encounter Care Teams Lapel Baster Relationship Specialty Start Date End Date Luis Pierce MD PCP - General 05/27/1998 documented as of this encounter
--- OUTSIDE RECORDS SUMMARY | 2022-06-12 09:49 | XMS_ITS | Encounter Summary ---
:1955 Author Organization [facility] Address [address] [place] [address] Care Team Providers Name Role Phone Alisha Kimball MD Primary Care Provider Encounter Details Date Type Department Care Team Description 12/12/1998 Orders Only So Li MD [address] [place], [place] [address] (Wo rk) Social History Tobacco Use Types Packs/Day Years Used Date Smoking Tobacco: Never Assessed Sex Assigned at Date Recorded Not on file documented as of this encounter Plan of Treatment Not on filedocumented as of this encounter Visit Diagnoses Not on filedocumented in this encounter Care Teams Tenter Frame Operator Relationship Specialty Start Date End Date Alisha Kimball MD PCP - General 07/08/[address] [place], [place] [address] documented as of this encounter
--- OUTSIDE RECORDS SUMMARY | 2022-06-12 09:49 | XMS_ITS | Encounter Summary ---
:1955 Author Organization [facility] Address [address] [place] [address] Care Team Providers Name Role Phone Luis Pierce MD Primary Care Provider Unavailable Encounter Details Date Type Department Care Team Description 08/17/1998 Office Visit Francisco Gupta MD [facility] [address] [place], [place] [address] (Wo rk) Social History Tobacco Use Types Packs/Day Years Used Date Smoking Tobacco: Never Assessed Sex Assigned at Date Recorded Not on file documented as of this encounter Plan of Treatment Not on filedocumented as of this encounter Visit Diagnoses Diagnosis Unspecified otitis media documented in this encounter Care Teams Drafter Cartographic Relationship Specialty Start Date End Date Luis Pierce MD PCP - General 05/27/1998 documented as of this encounter
--- OUTSIDE RECORDS SUMMARY | 2022-06-12 09:49 | XMS_ITS | Encounter Summary ---
:1955 Author Organization [facility] Address [address] [place] [address] Care Team Providers Name Role Phone Miky [...] on filedocumented in this encounter Care Teams Supply Chain Development Manager Relationship Specialty Start Date End Date Miky Sultana MD PCP - General 06/17/1996 05/26/1998 [address] [place] [address] documented as of this encounter
--- OUTSIDE RECORDS SUMMARY | 2022-06-12 09:49 | XMS_ITS | Encounter Summary ---
:1955 Author Organization [facility] Address [address] [place] [address] Care Team Providers Name Role Phone Luis Pierce MD Primary Care Provider Unavailable Encounter Details Date Type Department Care Team Description 12/17/1998 Office Visit Hafsa Lei, RETAIL MAINTENANCE TECHNICIAN, SET STAFF FITTER [address] [place], [place] [address] (Wo rk) Social History [...] filedocumented in this encounter Care Teams Assistant Principal Relationship Specialty Start Date End Date Luis Pierce MD PCP - General 05/27/1998 documented as of this encounter
--- OUTSIDE RECORDS SUMMARY | 2022-06-12 09:49 | XMS_ITS | Encounter Summary ---
:1955 Author Organization [facility] Address [address] [place] [address] Care Team Providers Name Role Phone Luis [...] Routine 07/16/1998 4:03 PM Results for this TECHNICAL WRITER AND EDITOR procedure are i n the results section . documented in this encounter Results URINE CULTURE ([place]) (07/16/1998 4:03 PM TECHNICAL WRITER AND EDITOR) [facility] Method Time Signature Specimen Urine [facility] Description Cath/Bladder Special None [facility] Requests Culture No Growth [facility] After 2 Days Report Status Final [facility] Report Status [id number] [facility] Specimen Anatomical Collection Method Collection Time Receive d Time (Source) Location / / Volume Laterality 07/16/1998 4:03 PM 9 4:03 TECHNICAL WRITER AND EDITOR PM TECHNICAL WRITER AND EDITOR Luis Pierce MD LAB_1 Performing Organization Address City/State/ZIP Code Phon e Number [facility] [phone] [address] documented in this encounter Visit Diagnoses Not on filedocumented in this encounter Care Teams Fbi Special Agent Relationship Specialty Start Date End Date Luis Pierce MD PCP - General 05/27/1998 documented as of this encounter
--- OUTSIDE RECORDS SUMMARY | 2022-06-12 09:49 | XMS_ITS | Encounter Summary ---
:1955 Author [facility] Address [address] [place] [address] Care Team Providers Name Role Phone Luis Pierce MD Primary Care Provider Unavailable Encounter Details Date Type Department Care Team Description 08/22/1998 Other Services Dar Haas MD [address] [facility] [place] [address] (Wo rk) Social History Tobacco Use Types Packs/Day Years Used Date Smoking Tobacco: Never Assessed Sex Assigned at Date Recorded Not on file documented as of this encounter Plan of Treatment Not on filedocumented as of this encounter Visit Diagnoses Diagnosis Excessive or frequent menstruation documented in this encounter Care Teams Buckle Frame Shaper Relationship Specialty Start Date End Date Luis Pierce MD PCP - General 05/27/1998 documented as of this encounter
--- OUTSIDE RECORDS SUMMARY | 2022-06-12 09:49 | XMS_ITS | Encounter Summary ---
:1955 Author Organization [facility] Address [address] [place] [address] Care Team Providers Name Role Phone Luis Pierce MD Primary Care Provider Unavailable Encounter Details Date Type Department Care Team Description 09/03/1998 Office Visit [facility] and Regan Pierce rt SURGERY FOLLOW-UP Gynecology MD Cristina [address] [place] [address] Social History Tobacco Use Types [...] four weeks for final postoperative evaluation. cc: DESIGNER/CREATIVE DIRECTOR documented in this encounter Plan of Treatment Not on filedocumented as of this encounter Visit Diagnoses Diagnosis Follow-up examination following surgery documented in this encounter Care Teams Deodorizer Operator Relationship Specialty Start Date End Date Luis Pierce MD PCP - General 05/27/1998 documented as of this encounter
--- OUTSIDE RECORDS SUMMARY | 2022-06-12 09:49 | XMS_ITS | Encounter Summary ---
:1955 Author Organization [facility] Address [address] [place] [address] Care Team Providers Name Role Phone Luis Pierce MD Primary Care Provider Unavailable Encounter Details Date Type Department Care Team Description 08/17/1998 Office Visit Francisco Gupta MD [address] [place], [place] [address] (Wo rk) Social History [...] the hysterectomy. IN SUMMARY: OTITIS MEDIA cc: E SUPERINTENDENT documented in this encounter Plan of Treatment Not on filedocumented as of this encounter Visit Diagnoses Not on filedocumented in this encounter Care Teams Channel Director Relationship Specialty Start Date End Date Luis Pierce MD PCP - General 05/27/1998 documented as of this encounter
--- OUTSIDE RECORDS SUMMARY | 2022-06-12 09:49 | XMS_ITS | Encounter Summary ---
:1955 Author Organization [facility] Address [address] [place] [address] Care Team Providers Name Role Phone Luis Pierce MD Primary Care Provider Unavailable Encounter Details Date Type Department Care Team Description 08/30/1998 Office Visit Francisco Gupta MD UTI [address] [place], [place] [address] (Wo rk) Social History Tobacco Use Types Packs/Day Years Used Date Smoking Tobacco: Never Assessed Sex Assigned at Date Recorded Not on file documented as of this encounter Plan of Treatment Not on filedocumented as of this encounter Visit Diagnoses Diagnosis Urinary tract infection, site not specif ied documented in this encounter Care Teams Material Requirements Planning Manager Relationship Specialty Start Date End Date Luis Pierce MD PCP - General 05/27/1998 documented as of this encounter
--- OUTSIDE RECORDS SUMMARY | 2022-06-12 09:50 | XMS_ITS | Encounter Summary ---
:1955 Author Organization [facility] Address [address] [address] Care Team Providers Name Role Phone Luis Pierce MD Primary Care Provider Unavailable Encounter Details Date Type Department Care Team Description 06/01/1994 Office Visit Miky Sultana MD [address] [facility] [place] [address] (Wo rk) Social History Tobacco Use Types [...] sooner if she has her problems. cc: L ADMINISTRATIVE ASSISTANT documented in this encounter Plan of Treatment Not on filedocumented as of this encounter Visit Diagnoses Not on filedocumented in this encounter Care Teams Part Maker Relationship Specialty Start Date End Date Luis Pierce MD PCP - General 05/27/1998 documented as of this encounter
--- OUTSIDE RECORDS SUMMARY | 2022-06-12 09:50 | XMS_ITS | Encounter Summary ---
:1955 Author Organization [employer] Address [address] [address] Care Team Providers Name Role Phone Luis Pierce MD Primary Care Provider Unavailable Encounter Details Date Type Department Care Team Description 10/27/1995 Orders Only Miky Sultana MD [address] [facility] [address] (Wo rk) Social History Tobacco Use Types [...] filedocumented in this encounter Care Teams Nursing Techn Relationship Specialty Start Date End Date Luis Pierce MD PCP - General 05/27/1998 documented as of this encounter
--- OUTSIDE RECORDS SUMMARY | 2022-06-12 09:50 | XMS_ITS | Encounter Summary ---
:1955 Author Organization [facility] Address [address] [place] [address] Care Team Providers Name Role Phone Alisha Kimball MD Primary Care Provider Encounter Details Date Type Department Care Team Description 06/07/1995 Orders Only Miky Sultana MD [address] [facility] [address] [facility] [place] [address] (Wo rk) Social History Tobacco Use Types Packs/Day Years Used Date Smoking Tobacco: Never Assessed Sex Assigned at Date Recorded Not on file documented as of this encounter Plan of Treatment Not on filedocumented as of this encounter Visit Diagnoses Not on filedocumented in this encounter Care Teams Bottle Hop Relationship Specialty Start Date End Date Alisha Kimball MD PCP - General 07/08/[address] [place], [place] [id number] documented as of this encounter
--- OUTSIDE RECORDS SUMMARY | 2022-06-12 09:50 | XMS_ITS | Encounter Summary ---
:1955 Author Organization [facility] Address [address] [address] Care Team Providers Name Role Phone Luis Pierce MD Primary Care Provider Unavailable Encounter Details Date Type Department Care Team Description 10/17/1996 Office Visit Miky Sultana MD [address] [facility] [place] [address] (Wo rk) Social History Tobacco Use Types [...] filedocumented in this encounter Care Teams Adjunct Faculty Mathematics Department Relationship Specialty Start Date End Date Luis Pierce MD PCP - General 05/27/1998 documented as of this encounter
--- OUTSIDE RECORDS SUMMARY | 2022-06-12 09:50 | XMS_ITS | Encounter Summary ---
:1955 Author Organization [facility] Address [address] [address] Care Team Providers Name Role Phone Luis Pierce MD Primary Care Provider Unavailable Encounter Details Date Type Department Care Team Description 03/12/1997 Office Visit Miky Sultana MD [address] [place] [address] (Wo rk) Social History Tobacco Use Types [...] on filedocumented in this encounter Care Teams Human Resources District Manager Relationship Specialty Start Date End Date uLis Pierce MD PCP - General 05/27/1998 documented as of this encounter
--- OUTSIDE RECORDS SUMMARY | 2022-06-12 09:50 | XMS_ITS | Encounter Summary ---
:1955 Author Organization [facility] Address [address] [place] [address] Care Team Providers Name Role Phone Alisha Kimball MD Primary Care Provider Encounter Details Date Type Department Care Team Description 10/26/1994 Orders Only Miky Sultana MD [address] [facility] [place] [address] (Wo rk) Social History Tobacco Use Types Packs/Day Years Used Date Smoking Tobacco: Never Assessed Sex Assigned at Date Recorded Not on file documented as of this encounter Plan of Treatment Not on filedocumented as of this encounter Visit Diagnoses Not on filedocumented in this encounter Care Teams Nursing Home Assistant Relationship Specialty Start Date End Date Alisha Kimball MD PCP - General 07/08/[address] [place], [place] [phone] documented as of this encounter
--- OUTSIDE RECORDS SUMMARY | 2022-06-12 09:50 | XMS_ITS | Encounter Summary ---
:1955 Author Organization [facility] Address [address] [address] Care Team Providers Name Role Phone Luis Pierce MD Primary Care Provider Unavailable Encounter Details Date Type Department Care Team Description 05/15/1994 Office Visit Francisco Albarran MD [address] [place] [address] (Wo rk) Social History Tobacco Use Types [...] was reassured and we'll treat symptomatically. cc: SHOVER documented in this encounter Plan of Treatment Not on filedocumented as of this encounter Visit Diagnoses Not on filedocumented in this encounter Care Teams Lead Pastor Relationship Specialty Start Date End Date Luis Pierce MD PCP - General 05/27/1998 documented as of this encounter
--- OUTSIDE RECORDS SUMMARY | 2022-06-12 09:50 | XMS_ITS | Encounter Summary ---
:1955 Author [facility] Address [address] [address] Care Team Providers Name Role Phone Luis Pierce MD Primary Care Provider Unavailable Encounter Details Date Type Department Care Team Description 06/10/1995 Office Visit Miky Sultana MD [address] [facility] [place] [address] (Wo rk) Social History Tobacco Use Types [...] She will follow up as needed. cc: TRAFFIC COORDINATOR documented in this encounter Plan of Treatment Not on filedocumented as of this encounter Visit Diagnoses Not on filedocumented in this encounter Care Teams Clinical Document Improvement Educator Relationship Specialty Start Date End Date Luis Pierce MD PCP - General 05/27/1998 documented as of this encounter
--- OUTSIDE RECORDS SUMMARY | 2022-06-12 09:50 | XMS_ITS | Encounter Summary ---
:1955 Author [facility] Address [address] [place] [address] Care Team Providers Name Role Phone Alisha Kimball MD Primary Care Provider Encounter Details Date Type Department Care Team Description 01/26/1995 Orders Only Miky Sultana MD [address] [facility] [address] [facility] [address] (Wo rk) Social History Tobacco Use Types Packs/Day Years Used Date Smoking Tobacco: Never Assessed Sex Assigned at Date Recorded Not on file documented as of this encounter Plan of Treatment Not on filedocumented as of this encounter Visit Diagnoses Not on filedocumented in this encounter Care Teams Meat Boner And Slicer Relationship Specialty Start Date End Date Alisha Kimball MD PCP - General 07/08/[address] [place], [place] [phone] documented as of this encounter
--- OUTSIDE RECORDS SUMMARY | 2022-06-12 09:50 | XMS_ITS | Encounter Summary ---
:1955 Author Organization [facility] Address [address] [address] Care Team Providers Name Role Phone Luis Pierce MD Primary Care Provider Unavailable Encounter Details Date Type Department Care Team Description 06/07/1995 Office Visit Miky Sultana MD [address] [facility] [place] [address] (Wo rk) Social History Tobacco Use Types [...] is no improvement within 10 days. cc: BAND OPERATOR documented in this encounter Plan of Treatment Not on filedocumented as of this encounter Visit Diagnoses Not on filedocumented in this encounter Care Teams Oil Separator Relationship Specialty Start Date End Date Luis Pierce MD PCP - General 05/27/1998 documented as of this encounter
--- OUTSIDE RECORDS SUMMARY | 2022-06-12 09:50 | XMS_ITS | Encounter Summary ---
:1955 Author Organization [facility] Address [address] [place] [address] Care Team Providers Name Role Phone Alisha Kimball MD Primary Care Provider Encounter Details Date Type Department Care Team Description 10/06/1994 Orders Only Miky Sultana MD [address] [facility] [address] [facility] [place] [address] (Wo rk) Social History Tobacco Use Types Packs/Day Years Used Date Smoking Tobacco: Never Assessed Sex Assigned at Date Recorded Not on file documented as of this encounter Plan of Treatment Not on filedocumented as of this encounter Visit Diagnoses Not on filedocumented in this encounter Care Teams Diamond Sander Relationship Specialty Start Date End Date Alisha Kimball MD PCP - General 07/08/[address] [place], [place] [phone] documented as of this encounter
--- OUTSIDE RECORDS SUMMARY | 2022-06-12 09:50 | XMS_ITS | Encounter Summary ---
:1955 Author Organization [facility] Address [address] [address] Care Team Providers Name Role Phone Luis Pierce MD Primary Care Provider Unavailable Encounter Details Date Type Department Care Team Description 07/02/1994 Orders Only Miky Sultana MD [address] [facility] [place] [address] (Wo rk) Social History Tobacco Use Types Packs/Day Years Used Date Smoking Tobacco: Never Assessed Sex Assigned at Date Recorded Not on file documented as of this encounter Plan of Treatment Not on filedocumented as of this encounter Results MAMMOGRAM, BILATERAL DIAGNOSTI (07/02/1994 12:00 AM LOAN COLLECTOR) Anatomical Region Laterality Modality Breast Other Specimen (Source) Anatomical Location Collection Method / Collectio n Time Received Time / Laterality Volume 07/02/1994 Miky Sultana MD RAD_BI documented in this encounter Visit Diagnoses Not on filedocumented in this encounter Care Teams Concrete Buildings Assembler Relationship Specialty Start Date End Date Luis Pierce MD PCP - General 05/27/1998 documented as of this encounter
--- OUTSIDE RECORDS SUMMARY | 2022-06-12 09:50 | XMS_ITS | Encounter Summary ---
:1955 Author Organization [facility] Address [address] [place] [address] Care Team Providers Name Role Phone Alisha Kimball MD Primary Care Provider Encounter Details Date Type Department Care Team Description 06/10/1995 Orders Only Miky Sultana MD [address] [facility] [place] [facility] [address] (Wo rk) Social History Tobacco Use Types Packs/Day Years Used Date Smoking Tobacco: Never Assessed Sex Assigned at Date Recorded Not on file documented as of this encounter Plan of Treatment Not on filedocumented as of this encounter Visit Diagnoses Not on filedocumented in this encounter Care Teams Paid Internship Relationship Specialty Start Date End Date Alisha Kimball MD PCP - General 07/08/[address] [place], [place] [phone] documented as of this encounter
--- OUTSIDE RECORDS SUMMARY | 2022-06-12 09:50 | XMS_ITS | Encounter Summary ---
:1955 Author Organization [facility] Address [address], [place] [address] Care Team Providers Name Role Phone Luis Pierce MD Primary Care Provider Unavailable Encounter Details Date Type Department Care Team Description 01/08/1997 Office Visit Miky Sultana MD [address] [facility] [place] [address] (Wo rk) Social History Tobacco Use Types [...] on filedocumented in this encounter Care Teams Surgical Resident Relationship Specialty Start Date End Date Luis Pierce MD PCP - General 05/27/1998 documented as of this encounter
--- OUTSIDE RECORDS SUMMARY | 2022-06-12 09:50 | XMS_ITS | Encounter Summary ---
:1955 Author Organization [facility] Address [address] [place] [address] Care Team Providers Name Role Phone Luis [...] on filedocumented in this encounter Care Teams Purler Relationship Specialty Start Date End Date Luis Pierce MD PCP - General 05/27/1998 documented as of this encounter
--- OUTSIDE RECORDS SUMMARY | 2022-06-12 09:50 | XMS_ITS | Encounter Summary ---
:1955 Author Organization [facility] Address [address] [place] [address] Care Team Providers Name Role Phone Miky [...] 11:05 AM Re sults for this SCREEN PRESS OPERATOR AUTOMATIC procedure are i n the results section. documented in this encounter Results RAPID, GPA STREP SCREEN (WAITING) (10/05/1997 11:05 AM PRESS OPERATOR AUTOMATIC) [facility] gist Method Time Signature Patient Home [id number] Recovr Phone # Patient Work [phone] Recovr Phone # Grp A Rapid Negative [facility] Screen Grp A Culture Negative [facility] Final Specimen Anatomical Collection Method Collection Time Receive d Time (Source) Location / / Volume Laterality 10/05/1997 11:05 10/05/1997 AM PRESS OPERATOR AUTOMATIC 11:06 AM PRESS OPERATOR AUTOMATIC Wy Nursing Rn LAB_1 Performing Organization Address City/State/ZIP Code Phon e Number [facility] [phone] [facility] [address] [place] [phone] documented in this encounter Visit Diagnoses Not on filedocumented in this encounter Care Teams Petrophysical Engineer Relationship Specialty Start Date End Date Miky Sultana MD PCP - General 06/17/1996 05/26/[address] [place] [address] documented as of this encounter
--- OUTSIDE RECORDS SUMMARY | 2022-06-12 09:50 | XMS_ITS | Encounter Summary ---
:1955 Author Organization [facility] Address [address] [address] Support Name Relationship Address Phone Gino Velasco Unavailable [address] 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 She has been using [...] filedocumented in this encounter Care Teams Field Artillery Operations Man Relationship Specialty Start Date End Date Luis Pierce MD PCP - General 05/27/1998 documented as of this encounter
--- OUTSIDE RECORDS SUMMARY | 2022-06-12 09:50 | XMS_ITS | Encounter Summary ---
:1955 Author Organization [facility] Address [address] [place] [address] Care Team Providers Name Role Phone Miky Sultana MD Primary Care Provider Encounter Details Date Type Department Care Team Description 07/02/1994 Orders Only [facility] Unknown, Physician Radiology [address] [place] [phone] (Wo rk) Social History Tobacco Use Types [...] filedocumented in this encounter Care Teams Merchandise Stocker Relationship Specialty Start Date End Date Miky Sultana MD PCP - General 09/21/01 07/07/05 [address] [place] [address] documented as of this encounter
--- OUTSIDE RECORDS SUMMARY | 2022-06-12 09:50 | XMS_ITS | Encounter Summary ---
:1955 Author Organization [facility] Address [address], [place] [address] Care Team Providers Name Role Phone Luis Pierce MD Primary Care Provider Unavailable Encounter Details Date Type Department Care Team Description 10/12/1995 Office Visit Miky Sultana MD [address] [facility] [place] [address] (Wo rk) Social History Tobacco Use Types [...] filedocumented in this encounter Care Teams Financial Services Education Consultant Relationship Specialty Start Date End Date Luis Pierce MD PCP - General 05/27/1998 documented as of this encounter
[2022-06-12 10:54] LABS: Clue Cells No Clue Cells Seen (None Seen); Trichomonas No Trichomonas Seen (None Seen); Yeast No Yeast Seen (None Seen)
== END 2022-06-12 09:34 | disposition home or self-care (01) ==
LOC: LONREF 09:34
PROVIDERS: PCP Family Medicine; Visit Provider Obstetrics & Gynecology
DX: N76.0 Acute vaginitis (principal)
CPT/HCPCS: 87210

== ENCOUNTER 2022-08-18 07:20 | Outpatient (CLI) | payer OTHER, SELFPAY ==
[2022-08-18 09:24] LABS: Albumin* 4.1 g/dL (3.3-5.0); Chloride* 107 mmol/L (96-114); Potassium* 4.5 mmol/L (3.6-5.1); Sodium* 138 mmol/L (135-149)
[2022-08-18 09:26] LABS: Bilirubin Total* 0.7 mg/dL (0.1-1.5); Carbon Dioxide* 24 mmol/L (20-32); Estimated Glomerular Filt Rate 61 ml/min
[2022-08-18 09:27] LABS: Alanine Aminotransferase* 53 U/L (4-35); Alkaline Phosphatase* 101 U/L (40-150); Aspartate Amino Transferase* 35 U/L (12-35); Blood Urea Nitrogen* 19 mg/dL (7-30); Glucose* 155 mg/dL (60-115); Total Protein* 6.8 g/dL (6.0-8.3)
[2022-08-18 09:28] LABS: Calcium* 9.7 mg/dL (8.4-10.6)
== END 2022-08-18 07:21 | disposition home or self-care (01) ==
PROVIDERS: PCP Family Medicine; Visit Provider Family Medicine
DX: I10 Essential (primary) hypertension (principal)
CPT/HCPCS: 80053

== ENCOUNTER 2022-08-25 06:50 | Outpatient (CLI) | payer OTHER, SELFPAY ==
[2022-08-25 07:27] LABS: Lab Add On Test New Spec Needed
[2022-08-25 11:06] LABS: Cholesterol* 182 mg/dL (90-199); HDL Cholesterol* 52 mg/dL (>=50); LDL Cholesterol Calculated 88 mg/dL (<100); Triglycerides* 211 mg/dL (40-149)
== END 2022-08-25 06:51 | disposition home or self-care (01) ==
PROVIDERS: PCP Family Medicine; Visit Provider Family Medicine
DX: E78.5 Hyperlipidemia, unspecified (principal)
CPT/HCPCS: 80061

== ENCOUNTER 2022-12-18 07:25 | Outpatient (CLI) | payer OTHER, SELFPAY | END 2022-12-18 07:26 | disposition home or self-care (01) | LOC: NFLDREF 12-21 08:33 | PROVIDERS: PCP Family Medicine; Referring Provider Family Medicine; Visit Provider Family Medicine | DX: E11.9 Type 2 diabetes mellitus without complications (principal); I10 Essential (primary) hypertension; E66.9 Obesity, unspecified; E78.5 Hyperlipidemia, unspecified; Z79.01 Long term (current) use of anticoagulants | CPT/HCPCS: 80053; 82043; 82570 ==

== ENCOUNTER 2023-05-29 09:03 | Outpatient (REF) | payer OTHER, SELFPAY | END 2023-05-29 09:04 | disposition home or self-care (01) | LOC: NFLDREF 09:03 | PROVIDERS: PCP Family Medicine; Referring Provider Family Medicine; Visit Provider Family Medicine | DX: R30.0 Dysuria (principal); N39.0 Urinary tract infection, site not specified | CPT/HCPCS: 87086 ==

== ENCOUNTER 2023-06-03 13:05 | Outpatient (CLI) | payer OTHER, SELFPAY ==
--- NOTE | 2023-06-03 13:20 | CRLHL7_ITS ---
For Patients: As a result of the Century Cures Act, medical imaging exams and procedure reports are released immediately into your electronic medical record. You may view this report before your referring provider. If you have questions, please contact your health care provider. BILATERAL SCREENING MAMMOGRAM WITH COMPUTER-AIDED DETECTION TECHNIQUE: CC and MLO views were obtained. These mammographic images have been obtained using full-field digital technique. These mammographic images were interpreted with the benefit of computer-aided detection. COMPARISON FILM: 05/29/22, 03/11/21, 02/12/20. FINDINGS: The breasts are almost entirely fatty. IMPRESSION: There is no radiographic evidence for malignancy. ASSESSMENT: BI-RADS Category 1: Negative RECOMMENDATION: Routine screening mammogram in 1 year. A lay language report of this examination will be provided to the patient. FROY RUIZ M.D. Diagnostic Radiologist [email or web address] ABDIEL/igor Transcribed: 06/08/2023, 2:[address]/Dictated by: Froy Ruiz MD @ 06/08/2023 9:48:00 AM (Electronically Signed)
== END 2023-06-03 13:06 | disposition home or self-care (01) ==
LOC: MAMMO 13:05
PROVIDERS: PCP Family Medicine; Visit Provider Family Medicine
DX: Z12.31 Encounter for screening mammogram for malignant neoplasm of breast (principal)
CPT/HCPCS: 77067

== ENCOUNTER 2023-09-03 07:20 | Outpatient (CLI) | payer OTHER, SELFPAY | END 2023-09-03 07:21 | disposition home or self-care (01) | LOC: NFLDREF 09-11 18:58 | PROVIDERS: PCP Family Medicine; Referring Provider Family Medicine; Visit Provider Family Medicine | DX: I10 Essential (primary) hypertension (principal); E78.5 Hyperlipidemia, unspecified; Z79.899 Other long term (current) drug therapy; E11.9 Type 2 diabetes mellitus without complications | CPT/HCPCS: 80053; 80061; 82043; 82570; 82607 ==

== ENCOUNTER 2023-12-28 07:20 | Outpatient (CLI) | payer OTHER, SELFPAY ==
--- OUTSIDE RECORDS SUMMARY | 2023-12-30 15:39 | XMS_ITS | Encounter Summary ---
Author Organization [facility] Address [address], [place] [address] Care Team Providers Care City Route Driver Name Role Phone Alisha Kimball MD Primary Care Provider [phone] Encounter Details Date Type Department Care Team (Latest Contact Info) Description 08/19/1998 Orders Only Luis Pierce Social History Tobacco Use Types Packs/Day Years Used Date Smoking Tobacco: Never Assessed Sex and Gender Information Value Date Recorded Sex Assigned at Not on file Gender Identity Not on file Sexual Orientation Not on file documented as of this encounter Plan of Treatment Upcoming Encounters Date Type Department Care Team (Late st Contact Info) Description 02/24/2024 10:10 AM CDT Appointment [facility] [place] [address] [place] [address] Alisha Avila, [facility] [address] [place] [address] documented as of this encounter Visit Diagnoses Not on filedocumented in this encounter Care Teams City Route Driver Relationship Specialty Start Date End Date Alisha Kimball MD [address], [place] [phone] PCP - General 07/08/05 documented as of this encounter
--- OUTSIDE RECORDS SUMMARY | 2023-12-30 15:39 | XMS_ITS | Encounter Summary ---
Author Organization [facility] Address [address] [place] [address] Care Team Providers Care High School Librarian Name Role Phone Alisha Kimball MD Primary Care Provider [phone] Encounter Details Date Type Department Care Team (Late st Contact Info) Description 07/28/[address] [id number] SLEEP QUESTIONNAIRE Social History Tobacco Use Types Packs/Day Years Used Date Smoking Tobacco: Never Smokeless Tobacco: Never Alcohol Use Standard Drinks/Week Comments No 0 (1 standard drink = 0.6 oz pur e alcohol) Sex and Gender Information Value Date Recorded Sex Assigned at Not on file Gender Identity Not on file Sexual Orientation Not on file documented as of this encounter Plan of Treatment Upcoming Encounters Date Type Department Care Team (Late st Contact Info) Description 02/24/2024 10:10 AM CDT Appointment [facility] [address] [address] [facility] [address] [place] [address] documented as of this encounter Visit Diagnoses Not on filedocumented in this encounter Care Teams High School Librarian Relationship Specialty Start Date End Date Alisha Kimball MD [address] [place] [address] PCP - General 07/08/05 documented as of this encounter
--- OUTSIDE RECORDS SUMMARY | 2023-12-30 15:39 | XMS_ITS | Encounter Summary ---
Author Organization [facility] Address [address] [place] [address] Care Team Providers Care Lay Out Worker Name Role Phone Alisha Kimball MD Primary Care Provider [phone] Encounter Details Date Type Department Care Team (Latest Contact Info) Description 09/18/1998 Orders Only Francisco Gupta Social [...] Info) Description 02/24/2024 10:10 AM CDT Appointment [facility] [place] [address] [place] [address] Alisha Avila, [facility] [address] [place] [address] documented as of this encounter Visit Diagnoses Not on filedocumented in this encounter Care Teams Lay Out Worker Relationship Specialty Start Date End Date Alisha Kimball MD [address] [place], [place] [id number] PCP - General 07/08/05 documented as of this encounter
--- OUTSIDE RECORDS SUMMARY | 2023-12-30 15:39 | XMS_ITS | Encounter Summary ---
Author Organization [facility] Address [address] [place] [address] Care Team Providers Care Floor Finisher Name Role Phone Alisha Kimball MD Primary Care Provider [phone] Encounter Details Date Type Department Care Team (Late st Contact Info) Description 07/28/2017 Consent for Procedure/Treatme nt [facility] Department INFORMED CONSENT FOR SLEEP/AUDIO/VIDEO Social History Tobacco Use Types Packs/Day Years [...] Info) Description 02/24/2024 10:10 AM CDT Appointment [facility] Dental [facility] [address] [place] [address] [facility] [address] [place] [address] documented as of this encounter Visit Diagnoses Not on filedocumented in this encounter Care Teams Floor Finisher Relationship Specialty Start Date End Date Alisha Kimball MD [address] [place] [address] PCP - General 07/08/05 documented as of this encounter
--- OUTSIDE RECORDS SUMMARY | 2023-12-30 15:39 | XMS_ITS | Encounter Summary ---
Author Organization [facility] Address [address] [place] [address] Care Team Providers Care Information Systems Manager Name Role Phone Alisha Kimball MD Primary Care Provider [phone] Encounter Details Date Type Department Care Team (Late st Contact Info) Description 11/16/2016 Refill Order [facility] [address] [place] [address] Alisha Kimball MD [address] [place], [place] [phone] Social History Tobacco Use Types Packs/Day Years [...] 02/24/2024 10:10 AM CDT Appointment [facility] Dental [facility] [address] [place] [phone] [facility] [address] [place], [place] [phone] documented as of this encounter Results * Sodium (12/01/2016 7:14 AM CDT) Sodium 140 136 - 145 mmol/L [facility] 12/01/2016 7:14 AM CDT 12/01/2016 7:16 AM CDT Narrative [facility] - 12/01/2016 1:01 PM CDT Performed at [facility], [address] [place] [address] [phone] Alisha Kimball MD LAB_[address] [facility] [phone] documented in this encounter Visit Diagnoses Diagnosis Encounter for long-term (current) use of medications- Primary Encounter for long-term (current) use of other medications Encounter for long-term (current) use of medications Encounter for long-term (current) use of other medications Diabetes mellitus, type 2 (HRC) Type II or unspecified type diabetes mellitus without mention of complication, not stated as uncontrolled Hypercholesterolemia Pure hypercholesterolemia Essential hypertension (HRC) Unspecified essential hypertension Screening for thyroid disorder documented in this encounter Care Teams Information Systems Manager Relationship Specialty Start Date End Date Alisha Kimball MD [address] [place] [address] PCP - General 07/08/05 documented as of this encounter
--- OUTSIDE RECORDS SUMMARY | 2023-12-30 15:39 | XMS_ITS | Encounter Summary ---
Author Organization [facility] Address [address] [place] [address] Care Team Providers Care Property Assistant Name Role Phone Alisha Kimball MD Primary Care Provider [phone] Encounter Details Date Type Department Care Team (Latest Contact Info) Description 08/27/1999 [place] [address] [place] [address], [place] [address] Social History Tobacco Use Types Packs/Day Years Used Date Smoking Tobacco: Never Assessed Sex and Gender Information Value Date Recorded Sex Assigned at Not on file Gender Identity Not on file Sexual Orientation Not on file documented as of this encounter Plan of Treatment Upcoming Encounters Date Type Department Care Team (Late st Contact Info) Description 02/24/2024 10:10 AM CDT Appointment [facility] Dental [facility] [address] [place] [phone] [facility] [address] [place] [address] documented as of this encounter Visit Diagnoses Not on filedocumented in this encounter Care Teams Property Assistant Relationship Specialty Start Date End Date Alisha Kimball MD [address] [place] [address] PCP - General 07/08/05 documented as of this encounter
--- OUTSIDE RECORDS SUMMARY | 2023-12-30 15:39 | XMS_ITS | Encounter Summary ---
Author Organization [facility] Address [address] [place] [address] Care Team Providers Care Perfect Binder Setter Name Role Phone Alisha Kimball MD Primary Care Provider Encounter Details Date Type Department Care Team (Latest Contact Info) Description 12/12/1998 Orders Only So Li MD [address] [place], [place] [id number] Social History Tobacco Use Types Packs/Day Years Used Date Smoking Tobacco: Never Assessed Sex and Gender Information Value Date Recorded Sex Assigned at Not on file Gender Identity Not on file Sexual Orientation Not on file documented as of this encounter Plan of Treatment Upcoming Encounters Date Type Department Care Team (Late st Contact Info) Description 02/24/2024 10:10 AM CDT Appointment [facility] Dental [facility] [address] [place] [address] Alisha Avila, [facility] [address] [place] [address] documented as of this encounter Visit Diagnoses Not on filedocumented in this encounter Care Teams Perfect Binder Setter Relationship Specialty Start Date End Date Alisha Kimball MD [address] [place] [address] PCP - General 07/08/05 documented as of this encounter
--- OUTSIDE RECORDS SUMMARY | 2023-12-30 15:39 | XMS_ITS | Clinical Summary ---
Author Organization [facility] Address [address], [place] [address] Care Team Providers Care Print Finisher Name Role Phone Alisha Kimball MD Primary Care Provider [phone] Source Comments You are receiving this document as you are listed as the primary care provider,follow-up provider, or the patient has been referred to you for consultation.This is in compliance with the Medicare and[facility] Hospitalca[facility] EHR Incentive Program,which states Providers who transition their patient to another setting of careor provider of care or refers their patient to another provider of care shouldprovide summary care record for each transition of care or referral. [employer] Allergies Active Allergy Reactions Criticality Noted Date Comments Sulfa Antibiotics Redness,Swelling 02/25/2005 Medications Medication Sig Dispensed Refills Start Date End Date Status blood glucose monitoring device Dispense 1 meter. 1 Each PRN 12/19/2014 Active lancets (ACCU-CHEK FASTCLIX)Indications :Type 2 diabetes mellitus without complication, without long-term current use of insulin (HRC) Testing blood sugars 1 time(s) a day. Pharmacist may substitute meter/supplies if insurance or patient requires specific equipment or model 102 Each 11 01/03/2020 Active blood glucose (ACCU-CHEK STACEY PLUS) test stripIndications:Typ e 2 diabetes mellitus without complication, without long-term current use of insulin (HRC) Test once daily. Use as directed. Pharmacy dispense brand based on insurance. 100 Each 3 01/10/2020 Active losartan (COZAAR) 50 MG tabletIndications:Es sential hypertension (HRC) Take 1 Tablet by mouth daily. 90 Tablet 3 04/16/2020 Active chlorthalidone (HYGROTON) 25 MG tabletIndications:Es sential hypertension (HRC) Take 1 Tablet by mouth daily. 90 Tablet 3 04/16/2020 Active apixaban (ELIQUIS) 5 MG tabletIndications:Pa roxysmal atrial fibrillation (HRC) Take 1 Tablet by mouth two times a day. 30 Tablet 06/14/2020 Active metFORMIN XR (GLUCOPHAGE XR) 500 MG 24 hour release tablet TAKE 4 TABLETS BY MOUTH DAILY WITH BREAKFAST. 360 Tablet 2 08/26/2020 Active atorvastatin (LIPITOR) 10 MG tablet TAKE 1/2 TABLET BY MOUTH EVERY DAY 45 Tablet 2 08/26/2020 Active sotalol (BETAPACE) 80 MG tablet 04/14/2021 Active magnesium oxide (MAG-OX) 400 MG tablet Take 1 Tablet (400 mg) by mouth daily. 11/19/2021 Active amLODIPine (NORVASC) 5 MG tablet Take 1 Tablet (5 mg) by mouth daily. 09/25/2022 Active losartan (COZAAR) 100 MG tablet Take 1 Tablet (100 mg) by mouth daily. 09/12/2022 Active sotalol (BETAPACE) 80 MG tablet Take 1 Tablet (80 mg) by mouth. 07/07/2022 Active Active Problems Problem Noted Date Diagnosed Date Paroxysmal atrial fibrillation 12/08/2017 Type 2 diabetes mellitus wit hout complication, without long-term current use of insulin 12/07/2017 Elevated liver enzymes 12/09/2016 Adenomatous polyp of colon 04/08/2016 Hypercholesterolemia 10/31/2012 Essential hypertension 10/26/2011 Family history of osteoporosis 04/28/2010 Mallet finger 08/09/2007 Resolved Problems Problem Noted Date Diagnosed Date Resolved Date CAREPLAN: ANTI-COAGULATION 06/14/2020 0 08/16/2020 Overview: See addendum to anticoagulation encounter from 06/14/20. Pt cont on Eliquis but is no longer with [facility]. Per pt Anticoagulation is being managed by [facility]. Kian Barnes RN/[facility] 08/16/2020 10:36 AM Heart palpitations 11/05/2014 8 CAREPLAN: [facility] 3 06/07/2013 Overview: Background: Engaged in Disease Management-Diabetes: Marisol Cruz, RN [phone] Diabetes mellitus, type 2 05/14/2010 Encounters Date Type Department Care Team Description 10/20/2023 12:10 PM CDT Office Visit [facility] [place] [address] [place] [address] Alisha Avila, [facility] Dental Hygiene (No cc) from Last 3 Months Immunizations Name Administration Dates Next Due Flu Vac (3+ yrs) 04/01/2012,05/01/2011, 0 Influenza IIV3 (Trivalent) F luzone Highdose, 65+ Yrs (65064) 03/28/2019 Influenza IIV4 (Quadrivalent ) 0.5mL ([id number]) 04/11/2018,05/19/2017,04/30/2016,2013 Influenza IIV4 (Quadrivalent ) Fluad, 65+ Yrs 04/11/2020 Influenza, Unspecified Formulation 04/28/2007 PCV13 (Prevnar) 01/03/2020 PPSV23 (Pneumovax) 10/31/2012 Td 06/01/1994 Tdap 04/01/2012,09/09/2006 Varicella 10/18/1996(Deferred: Immune by Melany patton) Zoster (Zostavax) 05/19/2017 Zoster RZV (Shingrix) 01/03/2020 Family History Medical History Relation Name Comments Coronary Artery Disease Father Heart Attack Father Hyperlipidemia Father Hypertension Father Cancer, Ovary Mother 70's Cancer, Uterine Mother Depression Mother Diabetes, Type II Mother Hyperlipidemia Mother Hypertension Mother Osteoporosis Mother Schizophrenia Brother 4 Thyroid Disorder Brother 4 ?Graves dis ease Diabetes, Type II Brother 5 Cancer, Ovary Maternal Grandmother 40's Cerebrovascular Disease Maternal Grandmother Osteoporosis Maternal Grandmother ADHD Son 4 Cancer, Breast Negative Family History Glaucoma Negative Family History Macular Degeneration Negative Family History Relation Name Status Comments Father (Age 64) [place] Mother (Age 76) ovarian ca ncer Brother 1 Alive Brother 2 Alive Brother 3 Alive Brother 4 Alive Brother 5 Alive Maternal Grandfather acciden t Maternal Grandmother [place] Paternal Grandfather [place] Paternal Grandmother [place] Sister Alive Son 1 Alive Son 2 Alive Son 3 Alive Son 4 Alive Social History Tobacco Use Types Packs/Day Years Used Date Smoking Tobacco: Never Smokeless Tobacco: Never Alcohol Use Standard Drinks/Week Comments No 0 (1 standard drink = 0.6 oz pur e alcohol) PHQ-2 Answer Date Recorded PHQ-2 Score 0 01/03/2020 Sex and Gender Information Value Date Recorded Sex Assigned at Not on file Gender Identity Not on file Sexual Orientation Not on file Last Filed Vital Signs Vital Sign Reading Time Taken Comments Blood Pressure 144/115 04/16/2020 11:54 AM CDT Pulse 72 10/20/2023 12:13 PM CDT Temperature 36.6 ??C (97.8 ??F) 04/16/2020 11:54 AM C DT Respiratory Rate 20 04/16/2020 11:54 AM CDT [...] Info) Description 02/24/2024 10:10 AM CDT Appointment [facility] [address] [phone] [facility] [address] [place], [place] [phone] Health Maintenance Due Date Last Done Comments Diabetes: HGBA1C 07/12/2020 04/11/2020, 07/2019, 12/02/2018, Additional history exists Diabetes: Foot Exam 01/02/2021 01/03/2020, 12/12/2018, 12/08/2017, Additional history exists Medicare Annual Wellness Visit 01/02/2021 01/03/2020, 01/03/2020 Pneumococcal 65+ Yrs (3 - PPSV23 or PCV20) 01/02/2021 01/03/2020, 10/31/2012 Diabetes: Eye Exam 01/24/2021 01/25/2020, 0 01/25/2020, 01/25/2020, Additional history exists Mammogram 02/11/2021 02/12/2020, 0803/2019, 01/18/2018, Additional history exists Colonoscopy 04/01/2021 04/01/2016, 01/03, 01/26/2006 Diabetes: Creatinine 04/11/2021 04/11/2020, 01/03/2020, 12/02/2018, Additional history exists Diabetes: Urine Microalbumin 04/11/2021 04/11/2020, 01/03/2020, 12/16/2018, Additional history exists DTaP/Tdap/Td (3 - Tdap) 04/01/2022 04/01/20 12, 09/09/2006, 06/01/1994 COVID-19 Vaccine ( season) 2023 09/22/2020, 09/01/2020 Influenza (Season Ended) 2024 020, 04/11/2020, 03/28/2019, Additional history exists Diabetes: Lipid Panel 01/02/2025 01/03/2020 , 12/02/2018, 11/26/2017, Additional history exists Hep C Screening (Preventive Services) Completed 12/07/2016 Dexa Completed 02/22/2020, 05/15/2010 Zoster/Shingles Completed 04/18/2020, 02/02, 01/03/2020, Additional history exists HepA Aged Out No longer eligi ble based on patient's age to complete this topic HepB Aged Out No longer eligi ble based on patient's age to complete this topic Hib Aged Out No longer eligi ble based on patient's age to complete this topic IPV (Polio) Aged Out No longer eligi ble based on patient's age to complete this topic MCV4 Aged Out No longer eligi ble based on patient's age to complete this topic Procedures Procedure Name Priority Date/Time Associated Diagnosis Comments PROPHYLAXIS-ADULT RECALL Routine 10/20/2023 12:10 PM CDT Chronic periodontitis, localized, slight ALBUMIN/CREAT RATIO Routine 04/11/2020 1 1:00 AM CDT BASIC METABOLIC PANEL Routine 04/11/2020 8:48 AM CDT Essential hypertension HGB A1C Routine 04/11/2020 8:48 AM CDT Type 2 diabetes mellitus without complication, without long-term current use of insulin (HRC) DXA BONE DENSITY SPINE/HIP Routine 02/22/2020 9:18 AM CDT Screening for osteoporosis MM MAMMOGRAM SCREENING BILAT W CAD Routine 02/12/2020 9:26 AM CDT LIPID PANEL & DIRECT LDL (IF NEEDED) Routine 01/03/2020 9:17 AM CDT Type 2 diabetes mellitus without complication, without long-term current use of insulin (HRC) HEPATITIS C ANTIBODY, WITH REFLEX Routine 12/07/2016 9:21 AM CDT Need for hepatitis C screening test Elevated liver enzymes COLONOSCOPY Routine 04/01/2016 8:03 AM CDT Screen for colon cancer from Last 3 Months or Most Recently Relevant to Health Maintenance Results * (ABNORMAL) Microalb/Creat Ratio (04/11/2020 11:00 AM CDT) Albumin, Urine, Random 72.7 mg/L 04/11/2020 5:52 PM CDT [facility] Creatinine, Urine, Random 129 >20 mg/dL 04/11/2020 5:52 PM CDT [facility] Albumin/Creati nine Ratio, Urine, Random 56(H) <30 mg/g 04/11/2020 5:52 PM CDT [facility] Urine,random 04/11/2020 11:0 0 AM CDT 04/11/2020 12:31 PM CDT Kareen Cohen APRN, CNP LAB_1 [facility] [address] [place] [address], [facility] [phone] * (ABNORMAL) BASIC METABOLIC PANEL (04/11/2020 8:48 AM CDT) Sodium 139 136 - 145 mmol/L 04/11/2020 11:44 AM T [facility] Potassium 4.6 3.5 - 5.1 mmol/L 04/11/2020 11:44 AM T [facility] Chloride 105 98 - 109 mmol/L 04/11/2020 11:44 AM T [facility] CO2 26 20 - 29 mmol/L 04/11/2020 11:44 AM T [facility] Anion Gap 8 7 - 16 mmol/L 04/11/2020 11:44 AM T [facility] Calcium 9.1 8.4 - 10.4 mg/dL 04/11/2020 11:44 AM [facility] BUN 16 7 - 26 mg/dL 04/11/2020 11:44 AM T [facility] Creatinine 0.87 0.55 - 1.02 mg/dL 04/11/2020 11:44 AM [facility] GFR, Estimated >60 >60 mL/min/1. 73m2 04/11/2020 11:44 AM [facility] Glucose 128(H) 70 - 100 mg/dL 04/11/2020 11:44 AM [facility] Comment:The given reference range is for the fasting state. Non-fasting reference range for glucose is 70 - 180 mg/dL. Hours Fasting N/A 04/11/2020 11:44 AM [facility] Blood Venipuncture / Unknown 04/11/2020 8:48 AM CDT 04/11/2020 8:48 AM CDT Janice Gill PA-C LAB_1 [facility] [address] [address], [facility] [phone] [facility] [address] [place] [address], [facility] [phone] * (ABNORMAL) Hgb A1C (04/11/2020 8:48 AM CDT) Hemoglobin A1C 7.2(H) <=5.6 % 04/11/2020 10:[address] [facility] Blood Venipuncture / Unknown 04/11/2020 8:48 AM CDT 04/11/2020 8:48 AM CDT Narrative [facility] - 04/11/2020 10:07 PM CDT For patients not previously diagnosed with diabetes: 5.7-6.4%: Increased risk for diabetes 6.5% and greater: Diagnostic for diabetes For patients diagnosed with diabetes: <8.0%: Goal of therapy for ages 18-75 Clinicians may recommend a higher or lower goal for specific individuals. Alisha Kimball MD LAB_1 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 Gender: female Height :5' 3.6 Weight (lbs):186.2lbs Race: Medical/Surgical History Menstrual periods:None Age of menopause:46 History of hip fractures in parents:No History of previous fractures occurring spontaneously, or a fracture as a result of a fall from a standing height or less:No If yes, indicated area: Glucocorticoids use:No Currently taking medication:None Have or had listed medical conditions:None Dietary/Habit Alcohol 3units or more per day (on average):No Currently smoking:No Other pertinent history: Dual-X-ray Absorptiometry (DXA Results) AP spine (L1-L4) Left hip (neck) Left ??hip (total) ?? BMD (gm/cm2) 1.229 1.069 1.046 ? T score 1.7 2.0 0.9 ? Z score 3.5 3.5 2.1 ?? %change from previous scan dated: ??05/15/10 8.1% ??-11.6% ?? FRAX Score: 10 YR Risk Hip Fracture % ?? Typical threshold to start therapy in patients is a 10-year risk of hip fracture >3%. Clinician? s judgment and/or patient preferences may indicate treatment for people with 10-year fracture probabilities above or below these levels. 10 YR Risk Major Osteoporotic Fracture % ?? Typical threshold to start therapy in patients is a 10-year risk of any osteoporotic fracture >20%.Clinicians judgment and/or patient preferences may indicate treatment for people with 10-year fracture probabilities above or below these levels. Comments: *WHO criteria are for postmenopausal women. *Degenerative joint disease, compression fractures, or calcification artifacts may falsely increase bone mineral density. Diagnosis: *No evidence of osteopenia/osteoporosis. Recommendations:. *Recommend lifestyle modifications, including proper calcium/vitamin d intake, weight bearing exercises, and fall prevention. *Consider follow up DXA ??in 3-5 years, unless clinical circumstances change. The changes in bone mineral density at the spine and hip ??were statistically significant and clinically important. WHO DEFINITIONS: Normal BMD: T-score ? -1.0 Osteopenia: T-score between -1.0 and -2.5 Osteoporosis: T-score ? -2.5 FRAX Score : ??The FRAX?? algorithms give the 10-year probability of fracture. The output is a 10-year probability of hip fracture and the 10-year probability of a major osteoporotic fracture (clinical spine, forearm, hip or shoulder fracture). ?? The FRAX score takes into account the bone density, but also age, gender, weight, height, previous fracture, parental hip fracture, smoking status, glucocorticoid intake, history of RA, secondary osteoporosis, and high alcohol intake in determining fracture risk in patients with osteopenia and osteoporosis. FRAX and Fracture Risk Categories in terms of major osteoporotic fracture risk (clinical spine, forearm, hip, or shoulder): < 10% ? = ? low fracture risk ? 10% and <15% ?= ? mildly increased fracture risk ? 15% and <20% ?= ? moderately increased fracture risk ? 20% and <30% ?= ?high fracture risk ? 30% ? = ? very high fracture risk A clinician may consider FDA-approved medical therapies in postmenopausal women and men aged 50 years and older, if one or more of the following is present (clinical correlation required and therapy may not always be indicated): 1. [...] or a 10-year probability of a major osteoporosis-related fracture ? 20% based on the FRAX scores. 4. ??Clinicians judgment and/or patient preferences may result in a decision to patients with 10-year fracture probabilities above or below these levels. Alisha Kimball MD RAD DEXA * MM Mammogram Screening Bilat W CAD (02/12/2020 9:26 AM CDT) Anatomical Region Laterality Modality Breast Bilateral Mammography Impressions 02/12/2020 4:57 PM CDT : ACR BI-RADS Category 1: Negative RECOMMENDATION: Follow Up Imaging in 12 months - Bilateral The results and recommendations of this examination will be communicated to the patient. Narrative 02/12/2020 4:57 PM CDT MM MAMMOGRAM SCREENING BILAT W CAD performed on 02/12/20 Compared to: 02/10/2019 MM Mammogram Screening Bilat W CAD, 01/18/2018 MM Mammogram Screening Bilat W CAD, and 01/18/2017 MM Mammogram Screening Bilat W CAD FINDINGS: Bilateral screening mammogram was performed with the assistance of Computer-Aided Detection. The breasts are almost entirely fatty. There is no radiographic evidence of malignancy. ?? Alisha Kimball MD RAD MIKEY * (ABNORMAL) Lipid Panel and Direct LDL(If Needed) (01/03/2020 9:17 AM CDT) Cholesterol 157 0 - 199 mg/dL 01/03/2020 3:07 PM CDT [facility] Triglyceride 157(H) <=149 mg/dL 01/03/2020 3:07 PM CDT [facility] HDL Cholesterol 46 >=40 mg/dL 01/03/2020 3:07 PM CDT [facility] LDL, Calculated 80 <130 mg/dL 01/03/2020 3:07 PM CDT [facility] Non HDL Chol, Calculated 111 mg/dL 01/03/2020 3:07 PM CDT [facility] Cholesterol/HDL Ratio 3.4 01/03/2020 3:07 PM CDT [facility] Hours Fasting 12 01/03/2020 3:07 PM T [facility] Blood Venipuncture / Unknown 01/03/2020 9:17 AM CDT 01/03/2020 9:17 AM CDT Alisha Kimball MD LAB_1 Performing Organization Address City/[facility]/ZIP Co de Phone Number [phone] [place] [address] [phone] * HEP C recommended for patients born between [id number] (12/07/2016 9:21 AM CDT) Anti-HCV Negative (Non Reactive) [facility] Comment: Antibodies to HCV not detected. Does not exclude the possibility of exposure to HCV. 12/07/2016 9:21 AM CDT 12/07/2016 9:22 AM CDT Narrative [facility] - 12/07/2016 2:01 PM CDT Performed at [facility], [address] ??[id number] Alisha Kimball MD LAB_1 Performing Organization Address City/[facility]/ZIP Co de Phone Number [facility] [phone] * COLONOSCOPY [[id number]] (04/01/2016 8:03 AM CDT) 04/01/2016 8:03 AM CDT Narrative GI ([facility]) - 04/01/2016 8:31 AM CDT Instrument Name: 181 Indications: ? Screening for colorectal malignant neoplasm Providers: ? Jean Claude Chauhan, Rosi Lauren LPN, Ivelisse Wood ? CAITLYN Palmer Referring MD: ?Alisha Kimball MD Medicines: ? Midazolam 4 mg IV, Fentanyl 100 micrograms IV Complications: ? No immediate complications. Procedure: ? Pre-Anesthesia Assessment: ? - Prior to the procedure, a History and Physical was ? performed, and patient medications and allergies were ? reviewed. The patient is competent. The risks and ? benefits of the procedure and the sedation options ? and risks were discussed with the patient. All ? questions were answered and informed consent was ? obtained. Patient identification and proposed ? procedure were verified by the physician in the ? pre-procedure area. Mental Status Examination: alert ? and oriented. Airway Examination: normal ? oropharyngeal airway and neck mobility. Respiratory ? Examination: clear to auscultation. CV Examination: ? normal. Prophylactic Antibiotics: The patient does ? not require prophylactic antibiotics. Prior ? Anticoagulants: The patient has taken no previous ? anticoagulant or antiplatelet agents. ASA Grade ? Assessment: II - A patient with mild systemic ? disease. After reviewing the risks and benefits, the ? patient was deemed in satisfactory condition to ? undergo the procedure. The anesthesia plan was to use ? moderate sedation / analgesia (conscious sedation). ? Immediately prior to administration of medications, ? the patient was re-assessed for adequacy to receive ? sedatives. The heart rate, respiratory rate, oxygen ? saturations, blood pressure, adequacy of pulmonary ? ventilation, and response to care were monitored ? throughout the procedure. The physical status of the ? patient was re-assessed after the procedure. ? After I obtained informed consent, the scope was ? passed under direct vision. Prior to sedation, ? patient identity and procedure was reverified. ? Throughout the procedure, the patient's blood ? pressure, pulse, and oxygen saturations were ? monitored continuously. The PCF-[id number] was introduced ? through the anus and advanced to the terminal ileum. ? The colonoscopy was performed without difficulty. The ? patient tolerated the procedure well. The quality of ? the bowel preparation was good. Findings: ? The perianal and digital rectal examinations were normal. ? The terminal ileum appeared normal. ? Multiple small and large-mouthed diverticula were found in the ? sigmoid colon and in the descending colon. ? Two sessile polyps were found in the rectum. The polyps were 7 mm in ? size. These polyps were removed with a cold biopsy forceps. Resection ? and retrieval were complete. ? Small internal hemerrhoids. Impression: ?- The examined portion of the ileum was normal. ? - Diverticulosis in the sigmoid colon and in the ? descending colon. ? - Two 7 mm polyps in the rectum. Resected and ? retrieved. Recommendation: ?- Return to refering physician ? - Await Path results. I will contact with letter in ? 1-2 weeks. ? - High fiber diet. Procedure Code(s): ?? --- Professional --- ? 77262, PT, Colonoscopy, flexible; with biopsy, single ? or multiple Diagnosis Code(s): ?? --- Professional --- ? Z12.11, Encounter for screening for malignant ? neoplasm of colon ? K62.1, Rectal polyp ? K57.30, Diverticulosis of large intestine without ? perforation or abscess without bleeding CPT copyright 2015 [employer]. All rights reserved. The codes documented in this report are preliminary and upon chemical plant operator review may be revised to meet current compliance requirements. Attending Participation: MD Jean Claude Stanton, 04/01/2016 8:30:39 AM Number of Addenda: 0 Note Initiated On: 04/01/2016 8:03 AM Procedure Note Jean Claude Chauhan MD - 04/01/2016 Instrument Name: 181 Indications: Screening for colorectal malignant neoplasm Providers: Rosi Ringundhauser, PROFILER OPERATOR, Ivelisse Palmer RN Referring MD: Alisha Kimball MD Medicines: Midazolam 4 mg IV, Fentanyl 100 micrograms IV Complications: No immediate complications. Procedure: Pre-Anesthesia Assessment: - Prior to the procedure, a History and Physical was performed, and patient medications and allergies were reviewed. The patient is competent. The risks and benefits of the procedure and the sedation options and risks were discussed with the patient. All questions were answered and informed consent was obtained. Patient identification and proposed procedure were verified by the physician in the pre-procedure area. Mental Status Examination: alert and oriented. Airway Examination: normal oropharyngeal airway and neck mobility. Respiratory Examination: clear to auscultation. CV Examination: normal. Prophylactic Antibiotics: The patient does not require prophylactic antibiotics. Prior Anticoagulants: The patient has taken no previous anticoagulant or antiplatelet agents. ASA Grade Assessment: II - A patient with mild systemic disease. After reviewing the risks and benefits, the patient was deemed in satisfactory condition to undergo the procedure. The anesthesia plan was to use moderate sedation / analgesia (conscious sedation). Immediately prior to administration of medications, the patient was re-assessed for adequacy to receive sedatives. The heart rate, respiratory rate, oxygen saturations, blood pressure, adequacy of pulmonary ventilation, and response to care were monitored throughout the procedure. The physical status of the patient was re-assessed after the procedure. After I obtained informed consent, the scope was passed under direct vision. Prior to sedation, patient identity and procedure was reverified. Throughout the procedure, the patient's blood pressure, pulse, and oxygen saturations were monitored continuously. The PCF-H190L was introduced through the anus and advanced to the terminal ileum. The colonoscopy was performed without difficulty. The patient tolerated the procedure well. The quality of the bowel preparation was good. Findings: The perianal and digital rectal examinations were normal. The terminal ileum appeared normal. Multiple small and large-mouthed diverticula were found in the sigmoid colon and in the descending colon. Two sessile polyps were found in the rectum. The polyps were 7 mm in size. These polyps were removed with a cold biopsy forceps. Resection and retrieval were complete. Small internal hemerrhoids. Impression: - The examined portion of the ileum was normal. - Diverticulosis in the sigmoid colon and in the descending colon. - Two 7 mm polyps in the rectum. Resected and retrieved. Recommendation: - Return to refering physician - Await Path results. I will contact with letter in 1-2 weeks. - High fiber diet. Procedure Code(s): --- Professional --- 14071, PT, Colonoscopy, flexible; with biopsy, single or multiple Diagnosis Code(s): --- Professional --- Z12.11, Encounter for screening for malignant neoplasm of colon K62.1, Rectal polyp K57.30, Diverticulosis of large intestine without perforation or abscess without bleeding CPT copyright 2015 [employer]. All rights reserved. The codes documented in this report are preliminary and upon chemical plant operator review may be revised to meet current compliance requirements. Attending Participation: MD Jean Claude Stanton, 04/01/2016 8:30:39 AM Number of Addenda: 0 Note Initiated On: 04/01/2016 8:03 AM Jean Claude Chauhan MD DIGESTIVE CARE Performing Organization Address City/State/[facility] Co de Phone Number GI (PROVATION) [place], [place] from Last 3 Months or Most Recently Relevant to Health Maintenance Care Teams Print Finisher Relationship Specialty Start Date End Date Alisha Kimball MD [address] [place] [address] PCP - General 07/08/05
--- OUTSIDE RECORDS SUMMARY | 2023-12-30 15:39 | XMS_ITS | Encounter Summary ---
Author Organization [facility] Address [address] [place] [address] Care Team Providers Care Orthopedic Shoe Maker Name Role Phone Alisha Kimball MD Primary Care Provider [phone] Reason for Visit * Reason Comments Dental Hygiene No cc Encounter Details Date Type Department Care Team (Late st Contact Info) Description 10/20/2023 12:10 PM CDT Office Visit [facility] Dental [address] [phone] Alisha Avila, [facility] [address] [place], [place] [phone] Dental Hygiene (No cc) Social History Tobacco Use Types Packs/Day Years [...] Taken Comments Blood Pressure - - Pulse 72 10/20/2023 12:13 PM CDT Temperature - - Respiratory Rate - - Oxygen Saturation - - Inhaled Oxygen Concentration - - Weight - - Height - - Body Mass Index - - documented in this encounter Progress Notes * Alisha Avila, [facility] - 10/20/2023 12:10 PM CDT HYGIENE PROPHY NOTE (NO EXAM) REASON FOR VISIT/CHIEF COMPLAINT: Loc is a 68 y.o. female who presents for Dental Hygiene (No cc) COLLABORATIVE AGREEMENT: The patient consents to have charting, radiographs, and prophylaxis by thedental hygienist performed with the understanding that this care is not a substitute for an examination by a dentist. These activities were performed under a collaborating agreement with Kenzie Flaherty DDS (License #: [id number]) CHART REVIEW: Reviewed with patient: Medical history, Dental history, Problem list, Periodontal charting, and Radiographs PROCEDURAL PAUSE: Patient identity verified: Yes Treatment plan/site verified with the patient: Yes Instruments/equipment verified: Yes Any medication/allergy contraindications: No PRESENTATION: Plaque: Generalized, light supra-gingival and sub-gingival Calculus: Localized, moderate supra-gingival , sub-gingival, mandibular anterior, and posterior buccal and Generalized, light supra-gingival and sub-gingival Stain: None Bleeding: Generalized moderate Gingival tissue: Inflamed and Edematous ACTIVITIES/EDUCATION:: Hand scale, Essential selective polishing, Flossed all contacts, and OHI TREATMENT REVIEW AND FOLLOW-UP: Discussed the Prognosis and Treatment options with the patient. Allquestions answered and informed consent was obtained. Planned Recall Interval: Examination: 4 months : Recall prophy: 4 months Next Planned Hygiene Visit: Hygiene Prophy with exam Alisha Avila RDH 10/20/2023, 12:36 PM --End of Note-- documented in this encounter Plan of Treatment Upcoming Encounters Date Type Department Care Team (Late st Contact Info) Description 02/24/2024 10:10 AM CDT Appointment [facility] [place] [address] [place] [address] Alisha Avila RDH [address] [place] [address] Scheduled Orders Name Type Priority Associated Diagnoses Order Schedule PERIODONTAL MAINTENANCE RECALL Dental Procedures Routine 1 Occurrenc es starting 10/20/2023 PERIODIC ORAL EVALUATION Dental Procedures Routine 1 Occurrences starting 10/20/2023 [id number] Dental Procedures Routine 1 Occurrences starting 10/20/2023 TOPICAL FLUORIDE VARNISH Dental Procedures Routine 1 Occurrences starting 10/20/2023 documented as of this encounter Procedures Procedure Name Priority Date/Time Associated Diagnosis Comments PROPHYLAXIS-ADULT RECALL Routine 10/20/2023 12:10 PM CDT Chronic periodontitis, localized, slight documented in this encounter Visit Diagnoses Diagnosis Chronic periodontitis, localized, slight- Primary documented in this encounter Care Teams Orthopedic Shoe Maker Relationship Specialty Start Date End Date Alisha Kimball MD [address] [place] [address] PCP - General 07/08/05 documented as of this encounter
--- OUTSIDE RECORDS SUMMARY | 2023-12-30 15:39 | XMS_ITS | Encounter Summary ---
Author Organization [facility] Address [address] [place] [address] Care Team Providers Care Job Estimator Name Role Phone Alisha Kimball MD Primary Care Provider [phone] Encounter Details Date Type Department Care Team (Latest Contact Info) Description 08/17/1998 Orders Only Francisco Gupta Social [...] Info) Description 02/24/2024 10:10 AM CDT Appointment [facility] [place] [address] [place] [address] Alisha Avila, [facility] [address] [place] [address] documented as of this encounter Visit Diagnoses Not on filedocumented in this encounter Care Teams Job Estimator Relationship Specialty Start Date End Date Alisha Kimball MD [address] [place], [place] [phone] PCP - General 07/08/05 documented as of this encounter
--- OUTSIDE RECORDS SUMMARY | 2023-12-30 15:39 | XMS_ITS | Encounter Summary ---
Author Organization [facility] Address [address] [place] [address] Care Team Providers Care State Manager Name Role Phone Alisha Kimball MD Primary Care Provider [phone] Encounter Details Date Type Department Care Team (Latest Contact Info) Description 10/24/1997 Orders Only Alexis Gross MD [...] Info) Description 02/24/2024 10:10 AM CDT Appointment [facility] Dental Clinic [place] [address] [place] [address] Alisha Avila, [facility] [address] [place] [address] documented as of this encounter Visit Diagnoses Not on filedocumented in this encounter Care Teams State Manager Relationship Specialty Start Date End Date Alisha Kimball MD [address] [place], [place] [phone] PCP - General 07/08/05 documented as of this encounter
--- OUTSIDE RECORDS SUMMARY | 2023-12-30 15:39 | XMS_ITS | Encounter Summary ---
Author Organization [facility] Address [address] [place] [address] Care Team Providers Care Supervisory Training Specialist Name Role Phone Alisha Kimball MD Primary Care Provider [phone] Encounter Details Date Type Department Care Team (Late st Contact Info) Description 06/07/2017 Correspondence [facility] Radiology [address] [place] [address] Radiology, Provider MRI SAFETY SHEET AND COMPATIBILITY FORM Social History Tobacco Use Types Packs/Day Years [...] Info) Description 02/24/2024 10:10 AM CDT Appointment [facility] Dental Clinic [address] [address] [facility] [address] [place] [address] documented as of this encounter Visit Diagnoses Not on filedocumented in this encounter Care Teams Supervisory Training Specialist Relationship Specialty Start Date End Date Alisha Kimball MD [address] [place] [address] PCP - General 07/08/05 documented as of this encounter
--- OUTSIDE RECORDS SUMMARY | 2023-12-30 15:39 | XMS_ITS | Encounter Summary ---
Author Organization [facility] Address [address] [place] [address] Care Team Providers Care Meteorologist Liaison Name Role Phone Alisha Kimball MD Primary Care Provider [phone] Encounter Details Date Type Department Care Team (Latest Contact Info) Description 09/01/1998 Orders Only Deepthi Ashraf Social [...] Info) Description 02/24/2024 10:10 AM CDT Appointment [facility] Dental Clinic [place] [address] [place] [address] Alisha Avila, [facility] [address] [place] [address] documented as of this encounter Visit Diagnoses Not on filedocumented in this encounter Care Teams Meteorologist Liaison Relationship Specialty Start Date End Date Alisha Kimball MD [address] [place], [place] [phone] PCP - General 07/08/05 documented as of this encounter
--- OUTSIDE RECORDS SUMMARY | 2023-12-30 15:39 | XMS_ITS | Encounter Summary ---
Author Organization [facility] Address [address] [place] [address] Care Team Providers Care Business Account Executive Name Role Phone Alisha Kimball MD Primary Care Provider [phone] Encounter Details Date Type Department Care Team (Late st Contact Info) Description 04/01/2016 Consent for Procedure/Treatme nt [facility] Department INFORMED CONSENT RECORD Social History Tobacco Use Types Packs/Day [...] Info) Description 02/24/2024 10:10 AM CDT Appointment [facility] [place] [address] [place] [address] [facility] [address] [place] [address] documented as of this encounter Visit Diagnoses Not on filedocumented in this encounter Care Teams Business Account Executive Relationship Specialty Start Date End Date Alisha Kimball MD [address] [place] [address] PCP - General 07/08/05 documented as of this encounter
--- OUTSIDE RECORDS SUMMARY | 2023-12-30 15:40 | XMS_ITS | Encounter Summary ---
Author Organization [facility] Address [address] [place] [address] Care Team Providers Care Environmental Engineering Professor Name Role Phone Alisha Kimball MD Primary Care Provider [phone] Encounter Details Date Type Department Care Team (Latest Contact Info) Description 06/10/1995 [place] [address] [place] [address], [place] [id number] Social History Tobacco Use Types Packs/Day Years Used Date Smoking Tobacco: Never Assessed Sex and Gender Information Value Date Recorded Sex Assigned at Not on file Gender Identity Not on file Sexual Orientation Not on file documented as of this encounter Plan of Treatment Upcoming Encounters Date Type Department Care Team (Late st Contact Info) Description 02/24/2024 10:10 AM CDT Appointment [facility] [address] [place] [phone] [facility] [address] [place] [address] documented as of this encounter Visit Diagnoses Not on filedocumented in this encounter Care Teams Environmental Engineering Professor Relationship Specialty Start Date End Date Alisha Kimball MD [address] [place] [address] PCP - General 07/08/05 documented as of this encounter
--- OUTSIDE RECORDS SUMMARY | 2023-12-30 15:40 | XMS_ITS | Encounter Summary ---
Author Organization Pending sale to [facility] Address [address] [place] [address] Care Team Providers Care Area Secretary Name Role Phone Alisha Kimball MD Primary Care Provider [phone] Encounter Details Date Type Department Care Team (Latest Contact Info) Description 10/06/1994 [place] [address] [place] [address], [place] [id number] Social History Tobacco Use Types Packs/Day Years Used Date Smoking Tobacco: Never Assessed Sex and Gender Information Value Date Recorded Sex Assigned at Not on file Gender Identity Not on file Sexual Orientation Not on file documented as of this encounter Plan of Treatment Upcoming Encounters Date Type Department Care Team (Late st Contact Info) Description 02/24/2024 10:10 AM CDT Appointment Pending sale to [facility] Dental [facility] [address] [place] [phone] [facility] [address] [place] [address] documented as of this encounter Visit Diagnoses Not on filedocumented in this encounter Care Teams Area Secretary Relationship Specialty Start Date End Date Alisha Kimball MD [address] [place] [address] PCP - General 07/08/05 documented as of this encounter
--- OUTSIDE RECORDS SUMMARY | 2023-12-30 15:40 | XMS_ITS | Encounter Summary ---
Author Organization [facility] Address [address] [place] [address] Care Team Providers Care Fabric And Accessories Estimator Name Role Phone Alisha Kimball MD Primary Care Provider [phone] Encounter Details Date Type Department Care Team (Latest Contact Info) Description 06/07/1995 [place] [address] [place] [address], [place] [id number] Social History Tobacco Use Types Packs/Day Years [...] AM CDT Appointment [facility] Dental [facility] [address] [place] [phone] [facility] [address] [place] [address] documented as of this encounter Visit Diagnoses Not on filedocumented in this encounter Care Teams Fabric And Accessories Estimator Relationship Specialty Start Date End Date Alisha Kimball MD [address] [place] [address] PCP - General 07/08/05 documented as of this encounter
--- OUTSIDE RECORDS SUMMARY | 2023-12-30 15:40 | XMS_ITS | Encounter Summary ---
Author Organization [facility] Address [address] [place] [address] Care Team Providers Care Media Buyer Name Role Phone Alisha Kimball MD Primary Care Provider [phone] Encounter Details Date Type Department Care Team (Latest Contact Info) Description 01/26/1995 [place] [address] [place] [address], [place] [id number] Social History Tobacco Use Types Packs/Day Years Used Date Smoking Tobacco: Never Assessed Sex and Gender Information Value Date Recorded Sex Assigned at Not on file Gender Identity Not on file Sexual Orientation Not on file documented as of this encounter Plan of Treatment Upcoming Encounters Date Type Department Care Team (Late st Contact Info) Description 02/24/2024 10:10 AM CDT Appointment [facility] Dental [facility] [address] [place] [phone] [facility] [address] [place] [address] documented as of this encounter Visit Diagnoses Not on filedocumented in this encounter Care Teams Media Buyer Relationship Specialty Start Date End Date Alisha Kimball MD [address] [place] [address] PCP - General 07/08/05 documented as of this encounter
--- OUTSIDE RECORDS SUMMARY | 2023-12-30 15:40 | XMS_ITS | Encounter Summary ---
Author Organization [facility] Address [address] [place] [address] Care Team Providers Care Metal Fabricating Inspector Name Role Phone Alisha Kimball MD Primary Care Provider [phone] Encounter Details Date Type Department Care Team (Latest Contact Info) Description 10/26/1994 [place] [address] [place] [address], [place] [id number] Social History Tobacco Use Types Packs/Day Years Used Date Smoking Tobacco: Never Assessed Sex and Gender Information Value Date Recorded Sex Assigned at Not on file Gender Identity Not on file Sexual Orientation Not on file documented as of this encounter Plan of Treatment Upcoming Encounters Date Type Department Care Team (Late st Contact Info) Description 02/24/2024 10:10 AM CDT Appointment [facility] Dental [facility] [address] [place] [phone] [facility] [address] [place] [address] documented as of this encounter Visit Diagnoses Not on filedocumented in this encounter Care Teams Metal Fabricating Inspector Relationship Specialty Start Date End Date Alisha Kimball MD [address] [place] [address] PCP - General 07/08/05 documented as of this encounter
== END 2023-12-28 07:21 | disposition home or self-care (01) ==
LOC: NFLDREF 12-30 15:37
PROVIDERS: PCP Family Medicine; Referring Provider Family Medicine; Visit Provider Family Medicine
DX: E78.5 Hyperlipidemia, unspecified (principal); E11.9 Type 2 diabetes mellitus without complications; I10 Essential (primary) hypertension; E66.9 Obesity, unspecified
CPT/HCPCS: 80053; 80061; 82043; 82570

== ENCOUNTER 2024-04-05 08:50 | Outpatient (CLI) | payer OTHER, SELFPAY ==
--- OUTSIDE RECORDS SUMMARY | 2024-04-05 13:15 | XMS_ITS | Encounter Summary ---
Author Organization [facility] Address [address] [place] [address] Care Team Providers Care Learning Support Services Director Name Role Phone Alisha Kimball MD Primary Care Provider [phone] Encounter Details Date Type Department Care Team (Late st Contact Info) Description 11/16/2016 Refill Order [facility] [address]50 [place] [address] Alisha Kimball MD [address] [place], [place] [phone] Social History Tobacco Use Types Packs/Day Years [...] Care Team (Late st Contact Info) Description 06/13/2024 8:10 AM JAVA ORACLE DEVELOPER Appointment [facility] Dental [facility] [address] [place] [phone] Addie Friedman [facility] [address] [place] [address] documented as of this encounter Results * Sodium (12/01/2016 7:14 AM CDT) Sodium 140 136 - 145 mmol/L [facility] 12/01/2016 7:14 AM CDT 12/01/2016 7:16 AM CDT Narrative [facility] - 12/01/2016 1:01 PM CDT Performed at [facility], [address] [place] [address] ??[phone] Alisha Kimball MD LAB_1 [facility] [phone] documented in this encounter Visit Diagnoses Diagnosis [...] disorder documented in this encounter Care Teams Learning Support Services Director Relationship Specialty Start Date End Date Alisha Kimball MD [address] [place] [address] PCP - General 07/08/05 documented as of this encounter
--- OUTSIDE RECORDS SUMMARY | 2024-04-05 13:15 | XMS_ITS | Encounter Summary ---
Author Organization [facility] Address [address], [place] [address] Care Team Providers Care Reel Fed Printer Name Role Phone Alisha Kimball MD Primary Care Provider [phone] Encounter Details Date Type Department Care Team (Late st Contact Info) Description 06/07/2017 Correspondence [facility] Radiology [address] [place] [address] Radiology, Provider MRI SAFETY SHEET AND COMPATIBILITY [...] st Contact Info) Description 06/13/2024 8:10 AM SATIN FINISHER Appointment [facility] Dental Clinic [place] [address] [place] [address] [facility] [address] [place], [place] [phone] documented as of this encounter Visit Diagnoses Not on filedocumented in this encounter Care Teams Reel Fed Printer Relationship Specialty Start Date End Date Alisha Kimball MD [address] [place], [place] [phone] PCP - General 07/08/05 documented as of this encounter
--- OUTSIDE RECORDS SUMMARY | 2024-04-05 13:15 | XMS_ITS | Encounter Summary ---
Author Organization [facility] Address [address], [place] [address] Care Team Providers Care Optical Glass Sawyer Name Role Phone Alisha Kimball MD Primary Care Provider [phone] Encounter Details Date Type Department Care Team [...] st Contact Info) Description 06/13/2024 8:10 AM CORE CUTTER Appointment [facility] [place] [address] [place] [phone] Addie Friedman, [facility] [address] [place], [place] [phone] documented as of this encounter Visit Diagnoses Not on filedocumented in this encounter Care Teams Optical Glass Sawyer Relationship Specialty Start Date End Date Alisha Kimball MD [address] [place], [place] [phone] PCP - General 07/08/05 documented as of this encounter
--- OUTSIDE RECORDS SUMMARY | 2024-04-05 13:15 | XMS_ITS | Encounter Summary ---
Author Organization [facility] Address [address] [place] [address] Care Team Providers Care Orthopedic Tech Name Role Phone Alisha Kimball MD Primary Care Provider [phone] Encounter Details Date Type Department Care Team (Latest Contact Info) Description 06/07/1995 Orders Only Miky Sultana MD [address] [place] [address], [place] [id number] Social History Tobacco Use Types Packs/Day Years Used Date Smoking Tobacco: Never Assessed Sex and Gender Information Value Date Recorded Sex Assigned at Not on file Gender Identity Not on file Sexual Orientation Not on file documented as of this encounter Plan of Treatment Upcoming Encounters Date Type Department Care Team (Late st Contact Info) Description 06/13/2024 8:10 AM REPAIRER VENEER SHEET Appointment [facility] Dental [facility] [address] [place] [phone] [facility] [address] [place], [place] [phone] documented as of this encounter Visit Diagnoses Not on filedocumented in this encounter Care Teams Orthopedic Tech Relationship Specialty Start Date End Date Alisha Kimball MD [address] [place], [place] [phone] PCP - General 07/08/05 documented as of this encounter
--- OUTSIDE RECORDS SUMMARY | 2024-04-05 13:15 | XMS_ITS | Encounter Summary ---
Author Organization [facility] Address [address] [address] Care Team Providers Care Scrap Picker Name Role Phone Alisha Kimball MD Primary Care Provider [phone] Encounter Details Date Type Department Care Team (Latest Contact Info) Description 12/12/1998 Orders Only So Li MD [address] [place], [place] [phone] Social History Tobacco Use Types Packs/Day Years Used Date Smoking Tobacco: Never Assessed Sex and Gender Information Value Date Recorded Sex Assigned at Not on file Gender Identity Not on file Sexual Orientation Not on file documented as of this encounter Plan of Treatment Upcoming Encounters Date Type Department Care Team (Late st Contact Info) Description 06/13/2024 8:10 AM ORTHOPEDIC NURSE Appointment [facility] Dental [facility] [address] [place] [phone] [facility] [address] [place], [place] [phone] documented as of this encounter Visit Diagnoses Not on filedocumented in this encounter Care Teams Scrap Picker Relationship Specialty Start Date End Date Alisha Kimball MD [address] [place], [place] [phone] PCP - General 07/08/05 documented as of this encounter
--- OUTSIDE RECORDS SUMMARY | 2024-04-05 13:15 | XMS_ITS | Encounter Summary ---
Author Organization [facility] Address [address] [place] [address] Care Team Providers Care Typesetters Printer Name Role Phone Alisha Kimball MD Primary Care Provider [phone] Encounter Details Date Type Department Care Team (Latest Contact Info) Description 08/27/1999 Orders Only Miky Sultana MD [address] [place] [address], [place] [id number] Social History Tobacco Use Types Packs/Day Years Used Date Smoking Tobacco: Never Assessed Sex and Gender Information Value Date Recorded Sex Assigned at Not on file Gender Identity Not on file Sexual Orientation Not on file documented as of this encounter Plan of Treatment Upcoming Encounters Date Type Department Care Team (Late st Contact Info) Description 06/13/2024 8:10 AM FLEXOGRAPHIC PRESS PLATE SETTER Appointment [facility] [address] [place] [phone] [facility] [address] [place], [place] [phone] documented as of this encounter Visit Diagnoses Not on filedocumented in this encounter Care Teams Typesetters Printer Relationship Specialty Start Date End Date Alisha Kimball MD [address] [place], [place] [phone] PCP - General 07/08/05 documented as of this encounter
--- OUTSIDE RECORDS SUMMARY | 2024-04-05 13:15 | XMS_ITS | Encounter Summary ---
Author Organization [facility] Address [address] [place] [address] Care Team Providers Care Picker Feeder Name Role Phone Alisha Kimball MD Primary Care Provider [phone] Reason for Visit * Reason Comments Dental Hygiene None. Encounter Details Date Type Department Care Team (Late st Contact Info) Description 02/24/2024 10:10 AM CDT Office Visit [facility] [address] [phone] Addie Friedman, [facility] [address] [place], [place] [phone] Dental Hygiene (None. ) Social History Tobacco Use Types Packs/Day Years [...] Comments Blood Pressure - - Pulse 61 02/24/2024 10:18 AM CDT Temperature - - Respiratory Rate - - Oxygen Saturation - - Inhaled Oxygen Concentration - - Weight - - Height - - Body Mass Index - - documented in this encounter Patient Instructions * Patient Instructions* Addie Friedman RDH - 02/24/2024 10:10 AM CDT Your next hygiene recall is due 06/25/2024 YOUR PERSONAL DENTAL RISK REPORT CARIES (TOOTH DECAY) PERIODONTAL (GUM) DISEASE ORAL CANCER LOW mod high LOW mod high LOW elevated ^ ^ ^ Risk Level LOW How To Maintain Your Low Risk Instruction from dental professional on brushing, flossing, and use of oral hygiene products. Congratulations on your low risk for tooth decay. Making healthy life style choices including brushing twice a day; daily flossing; and healthy dietary choices should help you maintain this low risk.Risk Level LOW Risk Factors Have had a diagnosis of gum disease either with or without past treatment. Intermediate levels of plaque present. How To Maintain Your Low Risk Return visit with the dental hygienist at 6 month intervals to assess periodontal condition and provide necessary treatment. Congratulations on your low risk for gum disease. Making healthy life style choices including brushing twice a day; daily flossing; and not using tobacco should help you maintain this low risk. Risk Level LOW Risk Factors Incidence of oral cancer increases with age. How To Maintain Your Low Risk Congratulations on your low risk for oral cancer. Making healthy life style choices such as not using tobacco and low to moderate alcohol use should help you maintain this low risk. Melia, we look forward to seeing you at your next visit! Thank you for choosing [facility]. documented in this encounter Progress Notes * Addie Friedman RDH - 02/24/2024 10:10 AM CDT HYGIENE PROPHY NOTE (NO EXAM) REASON FOR VISIT/CHIEF COMPLAINT: Loc is a 69 y.o. female who presents for Dental Hygiene (None.) COLLABORATIVE AGREEMENT: The patient consents to have charting and prophylaxis by the dental hygienist performed with the understanding that this care is not a substitute for an examination by a dentist. These activities were performed under a collaborating agreement with Josue Kerns DDS (License #: [id number]) CHART REVIEW: Reviewed with patient: Medical history, Dental history, Problem list, Periodontal charting, and Radiographs PROCEDURAL PAUSE: Patient identity verified: Yes Treatment plan/site verified with the patient: Yes Instruments/equipment verified: Yes Any medication/allergy contraindications: No PRESENTATION: Plaque: Localized, Light supra-gingival , interproximal, and mandibular anterior Calculus: Localized, Light supra-gingival , sub-gingival, interproximal, and mandibular anterior Stain: Localized, Light coffee/tea Bleeding: Localized Light Gingival tissue: Normal ACTIVITIES/EDUCATION:: Hand scale, Ultrasonic scale, Essential selective polishing, Flossed all contacts, and OHI TREATMENT REVIEW AND FOLLOW-UP: Discussed the Prognosis and Treatment options with the patient. Allquestions answered and informed consent was obtained. Planned Recall Interval: Examination: 8 months : Recall prophy: 4 months Next Planned Hygiene Visit: Hygiene Prophy with exam Addie Friedman RDH 02/24/2024, 10:49 AM --End of Note-- documented in this encounter Plan of Treatment Upcoming Encounters Date Type Department Care Team (Late st Contact Info) Description 06/13/2024 8:10 AM WRAPPER COUNTER Appointment [facility] Dental [facility] [address] [place] [phone] Addie Friedman RDH [address] [place] [address] Scheduled Orders Name Type Priority Associated Diagnoses Order Schedule PROPHYLAXIS-ADULT RECALL Dental Procedures Routine 1 Occurrences starting 02/24/2024 PERIODIC ORAL EVALUATION Dental Procedures Routine 1 Occurrences starting 02/24/2024 [id number] Dental Procedures Routine 1 Occurrences starting 02/24/2024 TOPICAL FLUORIDE VARNISH Dental Procedures Routine 1 Occurrences starting 02/24/2024 documented as of this encounter Procedures Procedure Name Priority Date/Time Associated Diagnosis Comments PROPHYLAXIS-ADULT RECALL Routine 02/24/2024 10:10 AM CDT Chronic periodontitis, localized, slight documented in this encounter Visit Diagnoses Diagnosis Chronic periodontitis, localized, slight- Primary documented in this encounter Care Teams Picker Feeder Relationship Specialty Start Date End Date Alisha Kimball MD [address] [place] [address] PCP - General 07/08/05 documented as of this encounter
--- OUTSIDE RECORDS SUMMARY | 2024-04-05 13:15 | XMS_ITS | Encounter Summary ---
Author Organization [facility] Address [address], [place] [address] Care Team Providers Care Oil Expeller Operator Name Role Phone Alisha Kimball MD Primary Care Provider [phone] Encounter Details Date Type Department Care Team [...] st Contact Info) Description 06/13/2024 8:10 AM SPICE GRINDER Appointment [facility] [place] [address] [place] [phone] Addie Friedman, [facility] [address] [place], [place] [phone] documented as of this encounter Visit Diagnoses Not on filedocumented in this encounter Care Teams Oil Expeller Operator Relationship Specialty Start Date End Date Alisha Kimball MD [address] [place], [place] [phone] PCP - General 07/08/05 documented as of this encounter
--- OUTSIDE RECORDS SUMMARY | 2024-04-05 13:15 | XMS_ITS | Encounter Summary ---
Author Organization [facility] Address [address] [place] [address] Care Team Providers Care Pocket Setter Lockstitch Name Role Phone Alisha Kimball MD Primary Care Provider [phone] Encounter Details Date Type Department Care Team (Latest Contact Info) Description 06/10/1995 Orders Only Miky Sultana MD [address] [place] [address], [place] [id number] Social History Tobacco Use Types Packs/Day Years Used Date Smoking Tobacco: Never Assessed Sex and Gender Information Value Date Recorded Sex Assigned at Not on file Gender Identity Not on file Sexual Orientation Not on file documented as of this encounter Plan of Treatment Upcoming Encounters Date Type Department Care Team (Late st Contact Info) Description 06/13/2024 8:10 AM REMOTELY PILOTED VEHICLE CONTROLLER Appointment [facility] Dental [facility] [address] [place] [phone] [facility] [address] [place], [place] [phone] documented as of this encounter Visit Diagnoses Not on filedocumented in this encounter Care Teams Pocket Setter Lockstitch Relationship Specialty Start Date End Date Alisha Kimball MD [address] [place], [place] [phone] PCP - General 07/08/05 documented as of this encounter
--- OUTSIDE RECORDS SUMMARY | 2024-04-05 13:15 | XMS_ITS | Encounter Summary ---
Author Organization [facility] Address [address], [place] [address] Care Team Providers Care Acid Recovery Operator Name Role Phone Alisha Kimball MD Primary Care Provider [phone] Encounter Details Date Type Department Care Team [...] st Contact Info) Description 06/13/2024 8:10 AM ASSISTANT PROFESSOR OF ENGLISH Appointment [facility] [place] [address] [place] [phone] Addie Friedman, [facility] [address] [place], [place] [phone] documented as of this encounter Visit Diagnoses Not on filedocumented in this encounter Care Teams Acid Recovery Operator Relationship Specialty Start Date End Date Alisha Kimball MD [address] [place], [place] [phone] PCP - General 07/08/05 documented as of this encounter
--- OUTSIDE RECORDS SUMMARY | 2024-04-05 13:15 | XMS_ITS | Encounter Summary ---
Author Organization [facility] Address [address], [place] [address] Care Team Providers Care Director Of Intelligence Name Role Phone Alisha Kimball MD Primary Care Provider [phone] Encounter Details Date Type Department Care Team (Late st Contact Info) Description 04/01/2016 Consent for Procedure/Treatme nt [facility] Department INFORMED CONSENT RECORD Social History [...] st Contact Info) Description 06/13/2024 8:10 AM SPREADER OPERATOR AUTOMATIC Appointment [facility] Dental [facility] [address] [place] [phone] [facility] [address] [place] [address] documented as of this encounter Visit Diagnoses Not on filedocumented in this encounter Care Teams Director Of Intelligence Relationship Specialty Start Date End Date Alisha Kimball MD [address] [place], [place] [phone] PCP - General 07/08/05 documented as of this encounter
--- OUTSIDE RECORDS SUMMARY | 2024-04-05 13:15 | XMS_ITS | Encounter Summary ---
Author Organization [facility] Address [address], [place] [address] Care Team Providers Care Shredding Machine Tender Name Role Phone Alisha Kimball MD Primary Care Provider [phone] Encounter Details Date Type Department Care Team (Late st Contact Info) Description 07/28/2017 Consent for Procedure/Treatme nt [facility] Department INFORMED CONSENT FOR SLEEP/AUDIO/VIDEO Social History [...] st Contact Info) Description 06/13/2024 8:10 AM AIR AND HYDRONIC BALANCING TECHNICIAN Appointment [facility] Dental [facility] [address] [place] [phone] [facility] [address] [place], [place] [phone] documented as of this encounter Visit Diagnoses Not on filedocumented in this encounter Care Teams Shredding Machine Tender Relationship Specialty Start Date End Date Alisha Kimball MD [address] [place] [address] PCP - General 07/08/05 documented as of this encounter
--- OUTSIDE RECORDS SUMMARY | 2024-04-05 13:15 | XMS_ITS | Encounter Summary ---
Author Organization [facility] Address [address], [place] [address] Care Team Providers Care Corporate Director Talent Assessment Name Role Phone Alisha Kimball MD Primary Care Provider [phone] Encounter Details Date Type Department Care Team [...] st Contact Info) Description 06/13/2024 8:10 AM FINE UNHAIRER Appointment [facility] [place] [address] [place] [phone] Addie Friedman, [facility] [address] [place], [place] [phone] documented as of this encounter Visit Diagnoses Not on filedocumented in this encounter Care Teams Corporate Director Talent Assessment Relationship Specialty Start Date End Date Alisha Kimball MD [address] [place], [place] [phone] PCP - General 07/08/05 documented as of this encounter
--- OUTSIDE RECORDS SUMMARY | 2024-04-05 13:15 | XMS_ITS | Encounter Summary ---
Author Organization [facility] Address [address], [place] [address] Care Team Providers Care Mortgage Or Loan Underwriter Name Role Phone Alisha Kimball MD Primary Care Provider [phone] Encounter Details Date Type Department Care Team [...] st Contact Info) Description 06/13/2024 8:10 AM TOOL DIE MAKER Appointment [facility] [place] [address] [place] [phone] FriedmanAddie, [facility] [address] [place], [place] [phone] documented as of this encounter Visit Diagnoses Not on filedocumented in this encounter Care Teams Mortgage Or Loan Underwriter Relationship Specialty Start Date End Date Alisha Kimball MD [address] [place], [place] [phone] PCP - General 07/08/05 documented as of this encounter
--- OUTSIDE RECORDS SUMMARY | 2024-04-05 13:15 | XMS_ITS | Clinical Summary ---
[facility] Address [address], [place] [address] Care Team Providers Care Wafer Production Worker Name Role Phone Alisha Kimball MD Primary Care Provider [phone] Source Comments You are receiving this document as you are listed as the primary care provider,follow-up provider, or the patient has been referred to you for consultation.This is in compliance with the Medicare and[facility] Hospitalca[facility] EHR Incentive Program,which states Providers who transition their patient to another setting of careor provider of care or refers their patient to another provider of care shouldprovide summary care record for each transition of care or referral. [employer] Allergies Active Allergy Reactions Criticality Noted Date [...] Resolved Date CAREPLAN: ANTI-COAGULATION 06/14/2020 0 08/16/2020 Overview (08/16/2020): See addendum to anticoagulation encounter from 06/14/20. Pt cont on Eliquis but is no longer with [facility]. Per pt Anticoagulation is being managed by [facility]. Kian Barnes RN/[facility] 08/16/2020 10:36 AM Heart palpitations 11/05/2014 8 CAREPLAN: [facility] 3 06/07/2013 Overview (06/07/2013): Background: Engaged in Disease Management-Diabetes: Marisol Cruz, RN [phone] Diabetes mellitus, type 2 05/14/2010 Encounters Date Type Department Care Team Description 02/24/2024 10:10 AM CDT Office Visit [facility] [address] [address] Addie Friedman, [facility] Dental Hygiene (None. ) from Last 3 Months Immunizations Name Administration Dates Next Due Flu Vac (3+ yrs) 04/01/2012,05/01/2011, 0 Influenza IIV3 (Trivalent) F luzone Highdose, 65+ Yrs (13101) 03/28/2019 Influenza IIV4 (Quadrivalent ) 0.5mL (75870) 04/11/2018,05/19/2017,04/30/2016,2013 Influenza IIV4 (Quadrivalent ) Fluad, 65+ [...] Relation Name Status Comments Father (Age 64) OK Mother (Age 76) ovarian ca ncer Brother 1 Alive Brother 2 Alive Brother 3 Alive Brother 4 Alive Brother 5 Alive Maternal Grandfather acciden t Maternal Grandmother OK Paternal Grandfather OK Paternal Grandmother OK Sister Alive Son 1 Alive Son 2 [...] Pressure 144/115 04/16/2020 11:54 AM CDT Pulse 61 02/24/2024 10:18 AM CDT Temperature 36.6 ??C (97.8 ??F) [...] st Contact Info) Description 06/13/2024 8:10 AM CERTIFIED REGISTERED NURSE PRACTITIONER Appointment [facility] [place] [address] [place] [phone] [facility] [address] [place] [address] Health Maintenance Due Date Last Done Comments RSV (1 - Risk 60-74 years 1-dose series) 2014 Diabetes: HGBA1C 07/12/2020 04/11/2020, 07/2019, 12/02/2018, Additional [...] history exists DTaP/Tdap/Td (3 - Tdap) 04/01/2022 04/01/20, 09/09/2006, 06/01/1994 COVID-19 Vaccine ( season) 2024 09/22/2020, 09/01/2020 Influenza (#1) 2024 04/18/2020, 02/2020, 03/28/2019, Additional history exists Diabetes: Lipid Panel [...] 10:10 AM CDT Chronic periodontitis, localized, slight ALBUMIN/CREAT RATIO [...] Random 72.7 mg/L 04/11/2020 5:52 PM CDT [facility] Creatinine, Urine, Random 129 >20 mg/dL 04/11/2020 5:52 PM CDT [facility] [place] [facility] Albumin/Creati nine Ratio, Urine, Random 56(H) <30 mg/g 04/11/2020 5:52 PM CDT [facility] Urine,random 04/11/2020 11:0 0 AM CDT 04/11/2020 12:31 PM CDT Kareen Cohen APRN, ISI LAB_1 [facility] [address] [address], [facility] [phone] * (ABNORMAL) BASIC METABOLIC PANEL (04/11/2020 8:48 AM CDT) Sodium 139 136 - 145 mmol/L 04/11/2020 11:44 AM CDT [facility] Potassium 4.6 3.5 - 5.1 mmol/L 04/11/2020 11:44 AM T [facility] Chloride 105 98 - 109 mmol/L 04/11/2020 11:44 AM T [facility] CO2 26 20 - 29 mmol/L 04/11/2020 11:44 AM T [facility] Anion Gap 8 7 - 16 mmol/L 04/11/2020 11:44 AM T [facility] Calcium 9.1 8.4 - 10.4 mg/dL 04/11/2020 11:44 AM T [facility] BUN 16 7 - 26 mg/dL 04/11/2020 11:44 AM T [facility] Creatinine 0.87 0.55 - 1.02 mg/dL 04/11/2020 11:44 AM T [facility] GFR, Estimated >60 >60 mL/min/1. 73m2 04/11/2020 11:44 AM [facility] Glucose 128(H) 70 - 100 mg/dL 04/11/2020 11:44 AM T [facility] Comment:The given reference range is for the fasting state. Non-fasting reference range for glucose is 70 - 180 mg/dL. Hours Fasting N/A 04/11/2020 11:44 AM [facility] Blood Venipuncture / Unknown 04/11/2020 8:48 AM CDT 04/11/2020 8:48 AM CDT Janice Gill PA-C LAB_1 [facility] [address] [address], [facility] [phone] [facility] [address] [place] [address], [facility] [phone] * (ABNORMAL) Hgb A1C (04/11/2020 8:48 AM CDT) Hemoglobin A1C 7.2(H) <=5.6 % 04/11/2020 10:07 PM CDT [facility] [place] [facility] Blood Venipuncture / Unknown 04/11/2020 8:48 AM CDT 04/11/2020 8:48 AM CDT Narrative [facility] - 04/11/2020 10:07 PM CDT For patients not previously diagnosed with diabetes: 5.7-6.4%: Increased risk for diabetes 6.5% and greater: Diagnostic for diabetes For patients diagnosed with diabetes: <8.0%: Goal of therapy for ages 18-75 Clinicians may recommend a higher or lower goal for specific individuals. Alisha Kimball MD LAB_1 Performing Organization Address City/State/[facility] Co de Phone Number [facility] [address] [phone] * DEXA Bone Density Spine/Hip (02/22/2020 9:18 AM CDT) Anatomical Region Laterality Modality Lower Extremity, Spine, Hip, L-Spine Other Narrative 02/22/2020 12:58 PM CDT Indication:Screening Talent Assistant and Model of Instrument: [employer] Demographics Age: 65 y.o. Gender: female Height [...] - 199 mg/dL 01/03/2020 3:07 PM CDT [facility] Triglyceride 157(H) <=149 mg/dL 01/03/2020 3:07 PM CDT [facility] HDL Cholesterol 46 >=40 mg/dL 01/03/2020 3:07 PM CDT [facility] LDL, Calculated 80 <130 mg/dL 01/03/2020 3:07 PM CDT [facility] Non HDL Chol, Calculated 111 mg/dL 01/03/2020 3:07 PM CDT [facility] Cholesterol/HDL Ratio 3.4 01/03/2020 3:07 PM CDT [facility] Hours Fasting 12 01/03/2020 3:07 PM T [facility] Blood Venipuncture / Unknown 01/03/2020 9:17 AM CDT 01/03/2020 9:17 AM CDT Alisha Kimball MD LAB_1 Performing Organization Address City/State/[facility] Co de Phone Number [address] [phone] [facility] [address] [place] [address] * HEP C recommended for patients born between 9416-8098 (12/07/2016 9:21 AM CDT) Anti-HCV Negative (Non Reactive) [facility] Comment: Antibodies to HCV not detected. Does not exclude the possibility of exposure to HCV. 12/07/2016 9:21 AM CDT 12/07/2016 9:22 AM CDT Narrative [facility] - 12/07/2016 2:01 PM CDT Performed at [facility], [address] [place] [address] [place] ??[address] Alisha Kimball MD LAB_1 [facility] [phone] * COLONOSCOPY [[id number]] (04/01/2016 8:03 AM CDT) 04/01/2016 8:03 AM [...] Procedure Code(s): ?? --- Professional --- ? 79077, PT, Colonoscopy, flexible; with biopsy, single ? or multiple Diagnosis Code(s): ?? --- Professional --- ? Z12.11, Encounter for screening for malignant ? neoplasm of colon ? K62.1, Rectal polyp ? K57.30, Diverticulosis of large intestine without ? perforation or abscess without bleeding CPT copyright 2015 [employer]. All rights reserved. The codes documented in this report are preliminary and upon certified medical records coder review may be revised to meet current compliance requirements. Attending Participation: MD Jean Claude Stanton, 04/01/2016 8:30:39 AM Number of Addenda: 0 Note Initiated On: 04/01/2016 8:03 AM Procedure Note Jean Claude Chauhan MD - 04/01/2016 Instrument Name: 181 Indications: Screening for colorectal malignant neoplasm Providers: Jean Claude Chauhan, Rosi Lauren LPN, Ivelisse Palmer RN Referring MD: Alisha [...] fiber diet. Procedure Code(s): --- Professional --- 30925, PT, Colonoscopy, flexible; with biopsy, single or multiple Diagnosis Code(s): --- Professional --- Z12.11, Encounter for screening for malignant neoplasm of colon K62.1, Rectal polyp K57.30, Diverticulosis of large intestine without perforation or abscess without bleeding CPT copyright 2015 [employer]. All rights reserved. The codes documented in this report are preliminary and upon certified medical records coder review may be revised to meet current compliance requirements. Attending Participation: MD Jean Claude Stanton, 04/01/2016 8:30:39 AM Number of Addenda: 0 Note Initiated On: 04/01/2016 8:03 AM Jean Claude Chauhan MD DIGESTIVE CARE Performing Organization Address City/State/[facility] Co de Phone Number GI ([employer]OVATION) [place], [place] from Last 3 Months or Most Recently Relevant to Health Maintenance Care Teams Wafer Production Worker Relationship Specialty Start Date End Date Alisha Kimball MD [address] [place], [place] [phone] [facility] - General 07/08/05
--- OUTSIDE RECORDS SUMMARY | 2024-04-05 13:15 | XMS_ITS | Encounter Summary ---
Author Organization [facility] Address [address] [place] [address] Care Team Providers Care Airline Station Agent Name Role Phone Alisha Kimball MD Primary Care Provider [phone] Encounter Details Date Type Department Care Team (Late st Contact Info) Description 07/28/[address] [id number] SLEEP QUESTIONNAIRE Social History Tobacco Use Types [...] st Contact Info) Description 06/13/2024 8:10 AM AUTO SERVICER Appointment [facility] [place] [address] [place] [address] [facility] [address] [place], [place] [phone] documented as of this encounter Visit Diagnoses Not on filedocumented in this encounter Care Teams Airline Station Agent Relationship Specialty Start Date End Date Alisha Kimball MD [address] [place], [place] [phone] PCP - General 07/08/05 documented as of this encounter
--- OUTSIDE RECORDS SUMMARY | 2024-04-05 13:16 | XMS_ITS | Encounter Summary ---
Author Organization [facility] Address [address] [place] [address] Care Team Providers Care Grain Manager Name Role Phone Alisha Kimball MD Primary Care Provider Encounter Details Date Type Department Care Team (Latest Contact Info) Description 10/06/1994 Orders Only Miky Sultana MD [address] [place] [address], [place] [id number] Social History Tobacco Use Types Packs/Day Years Used Date Smoking Tobacco: Never Assessed Sex and Gender Information Value Date Recorded Sex Assigned at Not on file Gender Identity Not on file Sexual Orientation Not on file documented as of this encounter Plan of Treatment Upcoming Encounters Date Type Department Care Team (Late st Contact Info) Description 06/13/2024 8:10 AM LOOM SETTER Appointment [facility] Dental [facility] [address] [place] [phone] [facility] [address] [place], [place] [phone] documented as of this encounter Visit Diagnoses Not on filedocumented in this encounter Care Teams Grain Manager Relationship Specialty Start Date End Date Alisha Kimball MD [address] [place], [place] [phone] PCP - General 07/08/05 documented as of this encounter
--- OUTSIDE RECORDS SUMMARY | 2024-04-05 13:16 | XMS_ITS | Encounter Summary ---
Author Organization [facility] Address [address] [place] [address] Care Team Providers Care Sports Health Club Membership Advisors Name Role Phone Alisha Kimball MD Primary Care Provider [phone] Encounter Details Date Type Department Care Team (Latest Contact Info) Description 01/26/1995 Orders Only Miky Sultana MD [address] [place] [address], [place] [id number] Social History Tobacco Use Types Packs/Day Years Used Date Smoking Tobacco: Never Assessed Sex and Gender Information Value Date Recorded Sex Assigned at Not on file Gender Identity Not on file Sexual Orientation Not on file documented as of this encounter Plan of Treatment Upcoming Encounters Date Type Department Care Team (Late st Contact Info) Description 06/13/2024 8:10 AM CELL INSTALLER Appointment [facility] Dental [facility] [address] [place] [phone] [facility] [address] [place], [place] [phone] documented as of this encounter Visit Diagnoses Not on filedocumented in this encounter Care Teams Sports Health Club Membership Advisors Relationship Specialty Start Date End Date Alisha Kimball MD [address] [place], [place] [phone] PCP - General 07/08/05 documented as of this encounter
--- OUTSIDE RECORDS SUMMARY | 2024-04-05 13:16 | XMS_ITS | Encounter Summary ---
Author Organization [facility] Address [address] [place] [address] Care Team Providers Care Mechanic General Operational Test Name Role Phone Alisha Kimball MD Primary Care Provider [phone] Encounter Details Date Type Department Care Team (Latest Contact Info) Description 10/26/1994 Orders Only Miky Sultana MD [address] [place] [address], [place] [id number] Social History Tobacco Use Types Packs/Day Years Used Date Smoking Tobacco: Never Assessed Sex and Gender Information Value Date Recorded Sex Assigned at Not on file Gender Identity Not on file Sexual Orientation Not on file documented as of this encounter Plan of Treatment Upcoming Encounters Date Type Department Care Team (Late st Contact Info) Description 06/13/2024 8:10 AM FLAVOR ROOM WORKER Appointment [facility] Dental [facility] [address] [place] [phone] [facility] [address] [place], [place] [phone] documented as of this encounter Visit Diagnoses Not on filedocumented in this encounter Care Teams Mechanic General Operational Test Relationship Specialty Start Date End Date Alisha Kimball MD [address] [place], [place] [phone] PCP - General 07/08/05 documented as of this encounter
== END 2024-04-05 08:51 | disposition home or self-care (01) ==
LOC: NFLDREF 13:08
PROVIDERS: PCP Family Medicine; Referring Provider Family Medicine; Visit Provider Family Medicine
DX: E11.9 Type 2 diabetes mellitus without complications (principal); E78.5 Hyperlipidemia, unspecified; I10 Essential (primary) hypertension; E11.29 Type 2 diabetes mellitus with other diabetic kidney complication; R80.9 Proteinuria, unspecified; E11.21 Type 2 diabetes mellitus with diabetic nephropathy; I48.20 Chronic atrial fibrillation, unspecified
CPT/HCPCS: 80053; 82043; 82570

== ENCOUNTER 2024-04-19 11:43 | Outpatient (CLI) | payer OTHER, SELFPAY ==
--- OUTSIDE RECORDS SUMMARY | 2024-04-19 11:45 | XMS_ITS | Clinical Summary ---
Author Organization [facility] Address [address], [place] [address] Care Team Providers Care College Admissions Counselor Name Role Phone Alisha Kimball MD Primary Care Provider [phone] Source Comments You are receiving this document as you are listed as the primary care provider,follow-up provider, or the patient has been referred to you for consultation.This is in compliance with the Medicare and[facility] Hospital[facility] EHR Incentive Program,which states Providers who transition their patient to another setting of careor provider of care or refers their patient to another provider of care shouldprovide summary care record for each transition of care or referral. [place] Allergies Active Allergy Reactions Criticality Noted Date [...] Engaged in Disease Management-Diabetes: Marisol Cruz, RN [phone] Diabetes mellitus, type 2 05/14/2010 Encounters Date Type Department Care Team Description 02/24/2024 10:10 AM CDT Office Visit [facility] [address] [address] Addie Friedman, [facility] Dental Hygiene (None. ) from Last 3 Months Immunizations Name Administration Dates Next Due Flu Vac (3+ yrs) 04/01/2012,05/01/2011, 0 Influenza IIV3 (Trivalent) F luzone Highdose, 65+ Yrs (81005) 03/28/2019 Influenza IIV4 (Quadrivalent ) 0.5mL (78066) 04/11/2018,05/19/2017,04/30/2016,2013 Influenza IIV4 (Quadrivalent ) Fluad, 65+ [...] Relation Name Status Comments Father (Age 64) [place] Mother (Age 76) ovarian ca ncer Brother 1 Alive Brother 2 Alive Brother 3 Alive Brother 4 Alive Brother 5 Alive Maternal Grandfather acciden t Maternal Grandmother [place] Paternal Grandfather [place] Paternal Grandmother [place] Sister Alive Son 1 Alive Son 2 [...] st Contact Info) Description 06/13/2024 8:10 AM CRYSTALLIZER OPERATOR Appointment [facility] [place] [address] [place] [phone] [facility] [address] [place] [address] Health Maintenance Due Date Last [...] on patient's age to complete this topic RSV Aged Out No longer eligi ble based [...] Random 72.7 mg/L 04/11/2020 5:52 PM CDT [employer] [facility] Creatinine, Urine, Random 129 >20 mg/dL 04/11/2020 5:52 PM CDT [employer] [facility] Albumin/Creati nine Ratio, Urine, Random 56(H) <30 mg/g 04/11/2020 5:52 PM CDT [employer] [facility] Urine,random 04/11/2020 11:0 0 AM CDT 04/11/2020 12:31 PM CDT Kareen Cohen APRN, GAS BURNER OPERATOR LAB_1 [facility] [address] [address], [facility] [phone] * (ABNORMAL) BASIC METABOLIC PANEL (04/11/2020 8:48 AM CDT) Sodium 139 136 - 145 mmol/L 04/11/2020 11:44 AM CDT [facility] Potassium 4.6 3.5 - 5.1 mmol/L 04/11/2020 11:44 AM T [facility] Chloride 105 98 - 109 mmol/L 04/11/2020 11:44 AM T [facility] CO2 26 20 - 29 mmol/L 04/11/2020 11:44 AM T [facility] Anion Gap 8 7 - 16 mmol/L 04/11/2020 11:44 AM T [facility] Calcium 9.1 8.4 - 10.4 mg/dL 04/11/2020 11:44 AM T [facility] BUN 16 7 - 26 mg/dL 04/11/2020 11:44 AM T [facility] Creatinine 0.87 0.55 - 1.02 mg/dL 04/11/2020 11:44 AM T [facility] GFR, Estimated >60 >60 mL/min/1. 73m2 04/11/2020 11:44 AM T [facility] Glucose 128(H) 70 - 100 mg/dL 04/11/2020 11:44 AM T [facility] Comment:The given reference range is for the fasting state. Non-fasting reference range for glucose is 70 - 180 mg/dL. Hours Fasting N/A 04/11/2020 11:44 AM T [facility] Blood Venipuncture / Unknown 04/11/2020 8:48 AM CDT 04/11/2020 8:48 AM CDT Janice Gill PA-C LAB_1 [facility] [address] [address], [facility] [phone] [facility] [address] [place] [address] [phone] * (ABNORMAL) Hgb A1C (04/11/2020 8:48 AM CDT) Hemoglobin A1C 7.2(H) <=5.6 % 04/11/2020 10:07 PM CDT [facility] Blood Venipuncture / Unknown 04/11/2020 8:48 AM CDT 04/11/2020 8:48 AM CDT Narrative [facility] - 04/11/2020 10:07 PM CDT For patients not previously diagnosed with diabetes: 5.7-6.4%: Increased risk for diabetes 6.5% and greater: Diagnostic for diabetes For patients diagnosed with diabetes: <8.0%: Goal of therapy for ages 18-75 Clinicians may recommend a higher or lower goal for specific individuals. Alisha Kimball MD LAB_1 [facility] [address] [phone] * DEXA Bone Density Spine/Hip (02/22/2020 9:18 AM CDT) Anatomical Region Laterality Modality Lower Extremity, Spine, Hip, L-Spine Other Narrative 02/22/2020 12:58 PM CDT Indication:Screening Roll Scale Man and Model of Instrument: [employer] Demographics Age: 65 y.o. Gender: female Height [...] - 199 mg/dL 01/03/2020 3:07 PM CDT [facility] Triglyceride 157(H) <=149 mg/dL 01/03/2020 3:07 PM CDT [facility] HDL Cholesterol 46 >=40 mg/dL 01/03/2020 3:07 PM CDT [facility] LDL, Calculated 80 <130 mg/dL 01/03/2020 3:07 PM CDT [facility] Non HDL Chol, Calculated 111 mg/dL 01/03/2020 3:07 PM CDT [facility] Cholesterol/HDL Ratio 3.4 01/03/2020 3:07 PM CDT [facility] Hours Fasting 12 01/03/2020 3:07 PM T [facility] Blood Venipuncture / Unknown 01/03/2020 9:17 AM CDT 01/03/2020 9:17 AM CDT Alisha Kimball MD LAB_1 [facility] [address] [place] [id number] [phone] [facility] [address] [place], [place] [phone] [place] [address] * HEP C recommended for patients born between 5499-4771 (12/07/2016 9:21 AM CDT) Anti-HCV Negative (Non Reactive) [facility] Comment: Antibodies to HCV not detected. Does not exclude the possibility of exposure to HCV. 12/07/2016 9:21 AM CDT 12/07/2016 9:22 AM CDT Narrative [facility] - 12/07/2016 2:01 PM CDT Performed at [facility], [address] [place] [address], [place], [place] ??[address] Alisha Kimball MD LAB_1 [facility] [phone] * COLONOSCOPY [[id number]] (04/01/2016 8:03 AM CDT) 04/01/2016 8:03 AM [...] Procedure Code(s): ?? --- Professional --- ? 39811, PT, Colonoscopy, flexible; with biopsy, single ? or multiple Diagnosis Code(s): ?? --- Professional --- ? Z12.11, Encounter for screening for malignant ? neoplasm of colon ? K62.1, Rectal polyp ? K57.30, Diverticulosis of large intestine without ? perforation or abscess without bleeding CPT copyright 2015 [employer]. All rights reserved. The codes documented in this report are preliminary and upon aluminum pourer review may be revised to meet current compliance requirements. Attending Participation: MD Jean Claude Stanton, 04/01/2016 8:30:39 AM Number of Addenda: 0 Note Initiated On: 04/01/2016 8:03 AM Procedure Note Jean Claude Chauhan MD - 04/01/2016 Instrument Name: 181 Indications: Screening for colorectal malignant neoplasm Providers: Rosi Ring LPN, Ivelisse Palmer, RN Referring MD: Alisha [...] fiber diet. Procedure Code(s): --- Professional --- 49929, PT, Colonoscopy, flexible; with biopsy, single or multiple Diagnosis Code(s): --- Professional --- Z12.11, Encounter for screening for malignant neoplasm of colon K62.1, Rectal polyp K57.30, Diverticulosis of large intestine without perforation or abscess without bleeding CPT copyright 2015 [employer]. All rights reserved. The codes documented in this report are preliminary and upon aluminum pourer review may be revised to meet current compliance requirements. Attending Participation: MD Jean Claude Stanton, 04/01/2016 8:30:39 AM Number of Addenda: 0 Note Initiated On: 04/01/2016 8:03 AM Jean Claude Chauhan MD [facility] [place], [place] from Last 3 Months or Most Recently Relevant to Health Maintenance Care Teams College Admissions Counselor Relationship Specialty Start Date End Date Alisha Kimball MD [address] [place] [address] [facility] - General 07/08/05
--- OUTSIDE RECORDS SUMMARY | 2024-04-19 11:46 | XMS_ITS | Encounter Summary ---
Author Organization [facility] Address [address], [place] [address] Care Team Providers Care Drying Machine Receiver Name Role Phone Alisha Kimball MD Primary Care Provider [phone] Encounter Details Date Type Department Care Team (Late st Contact Info) Description 04/01/2016 Consent for Procedure/Treatme nt [facility] Department INFORMED CONSENT RECORD Social History Tobacco [...] st Contact Info) Description 06/13/2024 8:10 AM CLERGY MEMBER Appointment [facility] Dental [facility] [address] [place] [phone] Addie [facility] [address] [place] [address] documented as of this encounter Visit Diagnoses Not on filedocumented in this encounter Care Teams Drying Machine Receiver Relationship Specialty Start Date End Date Alisha Kimball MD [address] [place], [place] [phone] PCP - General 07/08/05 documented as of this encounter
--- OUTSIDE RECORDS SUMMARY | 2024-04-19 11:46 | XMS_ITS | Encounter Summary ---
Author Organization [facility] Address [address] [place] [address] Care Team Providers Care Border Measurer Name Role Phone Alisha Kimball MD Primary Care Provider [phone] Encounter Details Date Type Department Care Team (Latest Contact Info) Description 10/06/1994 Orders Only Miky Sultana MD [address] [place] [address], [place] [id number] Social History Tobacco Use Types Packs/Day Years Used Date Smoking Tobacco: Never Assessed Sex and Gender Information Value Date Recorded Sex Assigned at Not on file Gender Identity Not on file Sexual Orientation Not on file documented as of this encounter Plan of Treatment Upcoming Encounters Date Type Department Care Team (Late st Contact Info) Description 06/13/2024 8:10 AM BUSINESS RULES DEVELOPER Appointment [facility] Dental [facility] [address] [place] [phone] [facility] [address] [place], [place] [phone] documented as of this encounter Visit Diagnoses Not on filedocumented in this encounter Care Teams Border Measurer Relationship Specialty Start Date End Date Alisha Kimball MD [address] [place], [place] [phone] PCP - General 07/08/05 documented as of this encounter
--- OUTSIDE RECORDS SUMMARY | 2024-04-19 11:46 | XMS_ITS | Encounter Summary ---
Author Organization [facility] Address [address], [place] [address] Care Team Providers Care Injection Operator Name Role Phone Alisha Kimball MD Primary Care Provider [phone] Encounter Details Date Type Department Care Team (Late st Contact Info) Description 06/07/2017 Correspondence [facility] Radiology [address] [place] [address] Radiology, Provider MRI SAFETY SHEET AND COMPATIBILITY [...] st Contact Info) Description 06/13/2024 8:10 AM AMF MECHANIC Appointment [facility] [place] [address] [place] [address] [facility] [address] [place], [place] [phone] documented as of this encounter Visit Diagnoses Not on filedocumented in this encounter Care Teams Injection Operator Relationship Specialty Start Date End Date Alisha Kimball MD [address] [place], [place] [phone] PCP - General 07/08/05 documented as of this encounter
--- OUTSIDE RECORDS SUMMARY | 2024-04-19 11:46 | XMS_ITS | Encounter Summary ---
Author Organization [facility] Address [address] [place] [address] Care Team Providers Care Patcher Wood Welder Name Role Phone Alisha Kimball MD Primary Care Provider [phone] Encounter Details Date Type Department Care Team (Latest Contact Info) Description 08/27/1999 Orders Only Miky Sultana MD [address] [place] [address], [place] [id number] Social History Tobacco Use Types Packs/Day Years Used Date Smoking Tobacco: Never Assessed Sex and Gender Information Value Date Recorded Sex Assigned at Not on file Gender Identity Not on file Sexual Orientation Not on file documented as of this encounter Plan of Treatment Upcoming Encounters Date Type Department Care Team (Late st Contact Info) Description 06/13/2024 8:10 AM TRUCK DRIVER TEAMSTER Appointment [facility] Dental [facility] [address] [place] [phone] [facility] [address] [place], [place] [phone] documented as of this encounter Visit Diagnoses Not on filedocumented in this encounter Care Teams Patcher Wood Welder Relationship Specialty Start Date End Date Alisha Kimball MD [address] [place], [place] [phone] PCP - General 07/08/05 documented as of this encounter
--- OUTSIDE RECORDS SUMMARY | 2024-04-19 11:46 | XMS_ITS | Encounter Summary ---
Author Organization [facility] Address [address], [place] [address] Care Team Providers Care Hybrid Powertrain Development Engineer Name Role Phone Alisha Kimball MD Primary Care Provider [phone] Encounter Details Date Type Department Care Team (Latest Contact Info) Description 12/12/1998 Orders Only So Li MD [address] [place], [place] [phone] Social History Tobacco Use Types Packs/Day Years Used Date Smoking Tobacco: Never Assessed Sex and Gender Information Value Date Recorded Sex Assigned at Not on file Gender Identity Not on file Sexual Orientation Not on file documented as of this encounter Plan of Treatment Upcoming Encounters Date Type Department Care Team (Late st Contact Info) Description 06/13/2024 8:10 AM MAMMA LOGIST Appointment [facility] Dental [facility] [address] [place] [phone] [facility] [address] [place], [place] [phone] documented as of this encounter Visit Diagnoses Not on filedocumented in this encounter Care Teams Hybrid Powertrain Development Engineer Relationship Specialty Start Date End Date Alisha Kimball MD [address] [place], [place] [phone] PCP - General 07/08/05 documented as of this encounter
--- OUTSIDE RECORDS SUMMARY | 2024-04-19 11:46 | XMS_ITS | Encounter Summary ---
Author Organization [facility] Address [address], [place] [address] Care Team Providers Care Stone Polisher Name Role Phone Alisha Kimball MD Primary Care Provider [phone] Encounter Details Date Type Department Care Team (Latest Contact Info) Description 08/19/1998 Orders Only Luis Piecre Social History Tobacco Use Types Packs/Day Years Used Date Smoking Tobacco: Never Assessed Sex and Gender Information Value Date Recorded Sex Assigned at Not on file Gender Identity Not on file Sexual Orientation Not on file documented as of this encounter Plan of Treatment Upcoming Encounters Date Type Department Care Team (Late st Contact Info) Description 06/13/2024 8:10 AM BIOENGINEER Appointment [facility] [place] [address] [place] [phone] Addie Friedman, [facility] [address] [place], [place] [phone] documented as of this encounter Visit Diagnoses Not on filedocumented in this encounter Care Teams Stone Polisher Relationship Specialty Start Date End Date Alisha Kimball MD [address] [place], [place] [phone] PCP - General 07/08/05 documented as of this encounter
--- OUTSIDE RECORDS SUMMARY | 2024-04-19 11:46 | XMS_ITS | Encounter Summary ---
Author Organization [facility] Address [address], [place] [address] Care Team Providers Care Test Cell Technician Name Role Phone Alisha Kimball MD Primary Care Provider [phone] Encounter Details Date Type Department Care Team [...] st Contact Info) Description 06/13/2024 8:10 AM ENVIRONMENTAL TECH Appointment [facility] [place] [address] [place] [phone] Addie Friedman, [facility] [address] [place], [place] [phone] documented as of this encounter Visit Diagnoses Not on filedocumented in this encounter Care Teams Test Cell Technician Relationship Specialty Start Date End Date Alisha Kimball MD [address] [place], [place] [phone] PCP - General 07/08/05 documented as of this encounter
--- OUTSIDE RECORDS SUMMARY | 2024-04-19 11:46 | XMS_ITS | Encounter Summary ---
Author Organization [facility] Address [address] [place] [address] Care Team Providers Care Supervisor Heat Treating Name Role Phone Alisha Kimball MD Primary Care Provider [phone] Encounter Details Date Type Department Care Team (Latest Contact Info) Description 06/10/1995 Orders Only Miky Sultana MD [address] [place] [address], [place] [id number] Social History Tobacco Use Types Packs/Day Years Used Date Smoking Tobacco: Never Assessed Sex and Gender Information Value Date Recorded Sex Assigned at Not on file Gender Identity Not on file Sexual Orientation Not on file documented as of this encounter Plan of Treatment Upcoming Encounters Date Type Department Care Team (Late st Contact Info) Description 06/13/2024 8:10 AM GAS COLLECTION SYSTEM OPERATOR Appointment [facility] Dental [facility] [address] [place] [phone] [facility] [address] [place], [place] [phone] documented as of this encounter Visit Diagnoses Not on filedocumented in this encounter Care Teams Supervisor Heat Treating Relationship Specialty Start Date End Date Alisha Kimball MD [address] [place], [place] [phone] PCP - General 07/08/05 documented as of this encounter
--- OUTSIDE RECORDS SUMMARY | 2024-04-19 11:46 | XMS_ITS | Encounter Summary ---
Author Organization [facility] Address [address] [address] Care Team Providers Care Brilliandeer Lopper Name Role Phone Alisha Kimball MD Primary Care Provider [phone] Encounter Details Date Type Department Care Team (Late st Contact Info) Description 07/28/2017 Consent for Procedure/Treatme nt [facility] Department INFORMED CONSENT FOR SLEEP/AUDIO/VIDEO [...] st Contact Info) Description 06/13/2024 8:10 AM BODY WELDER Appointment [facility] Dental [facility] [address] [place] [phone] [facility] [address] [place], [place] [phone] documented as of this encounter Visit Diagnoses Not on filedocumented in this encounter Care Teams Brilliandeer Lopper Relationship Specialty Start Date End Date Alisha Kimball MD [address] [place] [address] PCP - General 07/08/05 documented as of this encounter
--- OUTSIDE RECORDS SUMMARY | 2024-04-19 11:46 | XMS_ITS | Encounter Summary ---
Author Organization [facility] Address [address] [place] [address] Care Team Providers Care Casing Tier Name Role Phone Alisha Kimball MD Primary Care Provider [phone] Encounter Details Date Type Department Care Team (Latest Contact Info) Description 01/26/1995 Orders Only Miky Sultana MD [address] [place] [address], [place] [id number] Social History Tobacco Use Types Packs/Day Years Used Date Smoking Tobacco: Never Assessed Sex and Gender Information Value Date Recorded Sex Assigned at Not on file Gender Identity Not on file Sexual Orientation Not on file documented as of this encounter Plan of Treatment Upcoming Encounters Date Type Department Care Team (Late st Contact Info) Description 06/13/2024 8:10 AM ROTO GRAVURE PRESS OPERATOR Appointment [facility] Dental [facility] [address] [place] [phone] [facility] [address] [place], [place] [phone] documented as of this encounter Visit Diagnoses Not on filedocumented in this encounter Care Teams Casing Tier Relationship Specialty Start Date End Date Alisha Kimball MD [address] [place], [place] [phone] PCP - General 07/08/05 documented as of this encounter
--- OUTSIDE RECORDS SUMMARY | 2024-04-19 11:46 | XMS_ITS | Encounter Summary ---
Author Organization [facility] Address [address], [place] [address] Care Team Providers Care Environmental Field Technician Name Role Phone Alisha Kimball MD Primary Care Provider [phone] Encounter Details Date Type Department Care Team [...] st Contact Info) Description 06/13/2024 8:10 AM ANALYSIS ANALYST Appointment [facility] [place] [address] [place] [phone] Addie Friedman, [facility] [address] [place], [place] [phone] documented as of this encounter Visit Diagnoses Not on filedocumented in this encounter Care Teams Environmental Field Technician Relationship Specialty Start Date End Date Alisha Kimball MD [address] [place], [place] [phone] PCP - General 07/08/05 documented as of this encounter
--- OUTSIDE RECORDS SUMMARY | 2024-04-19 11:46 | XMS_ITS | Encounter Summary ---
Author Organization [facility] Address [address] [place] [address] Care Team Providers Care Retail Wireless Sales Representative Name Role Phone Alisha iKmball MD Primary Care Provider [phone] Encounter Details Date Type Department Care Team (Late st Contact Info) Description 11/16/2016 Refill Order [facility] 8450 [place] [address] Alisha Kimball MD [address] [place], [place] [phone] Social History Tobacco Use Types Packs/Day Years [...] st Contact Info) Description 06/13/2024 8:10 AM BALL SHAGGER Appointment [facility] Dental [facility] [address] [place] [phone] Addie Friedman [facility] [address] [place] [address] documented as of this encounter Results * Sodium (12/01/2016 7:14 AM CDT) Sodium 140 136 - 145 mmol/L [facility] 12/01/2016 7:14 AM CDT 12/01/2016 7:16 AM CDT Narrative [facility] - 12/01/2016 1:01 PM CDT Performed at [facility], [address] [place] [address] Alisha Kimball MD LAB_1 [facility] [phone] documented in this encounter Visit Diagnoses Diagnosis [...] documented in this encounter Care Teams Retail Wireless Sales Representative Relationship Specialty Start Date End Date Alisha Kimball MD [address] [place] [address] PCP - General 07/08/05 documented as of this encounter
--- OUTSIDE RECORDS SUMMARY | 2024-04-19 11:46 | XMS_ITS | Encounter Summary ---
Author Organization Counts include 234 beds at the [facility] Address [address] [place] [address] Care Team Providers Care Manager Therapy Name Role Phone Alisha Kimball MD Primary Care Provider [phone] Encounter Details Date Type Department Care Team (Latest Contact Info) Description 06/07/1995 Orders Only Miky Sultana MD [address] [place] [address], [place] [id number] Social History Tobacco Use Types Packs/Day Years Used Date Smoking Tobacco: Never Assessed Sex and Gender Information Value Date Recorded Sex Assigned at Not on file Gender Identity Not on file Sexual Orientation Not on file documented as of this encounter Plan of Treatment Upcoming Encounters Date Type Department Care Team (Late st Contact Info) Description 06/13/2024 8:10 AM FILTER TENDER JELLY Appointment Counts include 234 beds at the [facility] Dental [facility] [address] [place] [phone] [facility] [address] [place], [place] [phone] documented as of this encounter Visit Diagnoses Not on filedocumented in this encounter Care Teams Manager Therapy Relationship Specialty Start Date End Date Alisha Kimball MD [address] [place], [place] [phone] PCP - General 07/08/05 documented as of this encounter
--- OUTSIDE RECORDS SUMMARY | 2024-04-19 11:46 | XMS_ITS | Encounter Summary ---
Author Organization [facility] Address [address] [place] [address] Care Team Providers Care Bottom Presser Name Role Phone Alisha Kimball MD Primary Care Provider [phone] Encounter Details Date Type Department Care Team (Latest Contact Info) Description 10/26/1994 Orders Only Miky Sultana MD [address] [place] [address], [place] [id number] Social History Tobacco Use Types Packs/Day Years Used Date Smoking Tobacco: Never Assessed Sex and Gender Information Value Date Recorded Sex Assigned at Not on file Gender Identity Not on file Sexual Orientation Not on file documented as of this encounter Plan of Treatment Upcoming Encounters Date Type Department Care Team (Late st Contact Info) Description 06/13/2024 8:10 AM ELECTRIC FREIGHT CAR OPERATOR Appointment [facility] Dental [facility] [address] [place] [phone] [facility] [address] [place], [place] [phone] documented as of this encounter Visit Diagnoses Not on filedocumented in this encounter Care Teams Bottom Presser Relationship Specialty Start Date End Date Alisha Kimball MD [address] [place], [place] [phone] PCP - General 07/08/05 documented as of this encounter
--- OUTSIDE RECORDS SUMMARY | 2024-04-19 11:46 | XMS_ITS | Encounter Summary ---
Author Organization [facility] Address [address] [place] [address] Care Team Providers Care Data Reviewer Name Role Phone Alisha Kimball MD Primary Care Provider [phone] Reason for Visit * Reason Comments Dental Hygiene None. Encounter Details Date Type Department Care Team (Late st Contact Info) Description 02/24/2024 10:10 AM CDT Office Visit [facility] [address] [phone] Addie Firedman, [facility] [address] [place], [place] [phone] Dental Hygiene (None. ) Social History Tobacco [...] agreement with Josue Kerns DDS (License #: [id number]) CHART REVIEW: Reviewed with patient: Medical history, [...] st Contact Info) Description 06/13/2024 8:10 AM COMMUNITY SPECIALIST Appointment [facility] Dental [facility] [address] [place] [phone] Addie Friedman [facility] [address] [place] [address] Scheduled Orders Name Type Priority Associated Diagnoses Order Schedule PROPHYLAXIS-ADULT RECALL Dental Procedures Routine 1 Occurrences starting 02/24/2024 PERIODIC ORAL EVALUATION Dental Procedures Routine 1 Occurrences starting 02/24/2024 [id number] Dental Procedures Routine 1 Occurrences starting 02/24/2024 TOPICAL FLUORIDE VARNISH Dental Procedures Routine 1 Occurrences starting 02/24/2024 documented as of this encounter Procedures Procedure Name Priority Date/Time Associated Diagnosis Comments PROPHYLAXIS-ADULT RECALL Routine 02/24/2024 10:10 AM CDT Chronic periodontitis, localized, slight documented in this encounter Visit Diagnoses Diagnosis Chronic periodontitis, localized, slight- Primary documented in this encounter Care Teams Data Reviewer Relationship Specialty Start Date End Date Alisha Kimball MD [address] [place] [address] PCP - General 07/08/05 documented as of this encounter
--- OUTSIDE RECORDS SUMMARY | 2024-04-19 11:46 | XMS_ITS | Encounter Summary ---
Author Organization [facility] Address [address], [place] [address] Care Team Providers Care Technical Support Technician Name Role Phone Alisha Kimball MD Primary Care Provider [phone] Encounter Details Date Type Department Care Team [...] st Contact Info) Description 06/13/2024 8:10 AM STRIPE MARKER Appointment [facility] [place] [address] [place] [phone] Addie Friedman, [facility] [address] [place], [place] [phone] documented as of this encounter Visit Diagnoses Not on filedocumented in this encounter Care Teams Technical Support Technician Relationship Specialty Start Date End Date Alisha Kimball MD [address] [place], [place] [phone] PCP - General 07/08/05 documented as of this encounter
--- OUTSIDE RECORDS SUMMARY | 2024-04-19 11:46 | XMS_ITS | Encounter Summary ---
Author Organization [facility] Address [address] [address] Care Team Providers Care Esthetician Makeup Artist Name Role Phone Alisha Kimball MD Primary Care Provider [phone] Encounter Details Date Type Department Care Team [...] st Contact Info) Description 06/13/2024 8:10 AM LEDGER POSTER Appointment [facility] Clinic [place] [address] [place] [phone] FriedmanAddie, [facility] [address] [place], [place] [phone] documented as of this encounter Visit Diagnoses Not on filedocumented in this encounter Care Teams Esthetician Makeup Artist Relationship Specialty Start Date End Date Alisha Kimball MD [address], [place] [phone] PCP - General 07/08/05 documented as of this encounter
--- OUTSIDE RECORDS SUMMARY | 2024-04-19 11:46 | XMS_ITS | Encounter Summary ---
Author Organization Replaced by [facility] Address [address] [place] [address] Care Team Providers Care Electrical Engineering Drafting Officer Name Role Phone Alisha Kimball MD Primary Care Provider [phone] Encounter Details Date Type Department Care Team (Late st Contact Info) Description 07/28/[address] [phone] SLEEP QUESTIONNAIRE Social History Tobacco Use Types [...] Contact Info) Description 06/13/2024 8:10 AM CERTIFIED NURSES AIDE Appointment Replaced by [facility] Dental [facility] [place] [address] [place] [phone] [facility] [address] [place], [place] [phone] documented as of this encounter Visit Diagnoses Not on filedocumented in this encounter Care Teams Electrical Engineering Drafting Officer Relationship Specialty Start Date End Date Alisha Kimball MD [address] [place], [place] [phone] PCP - General 07/08/05 documented as of this encounter
== END 2024-04-19 11:44 | disposition home or self-care (01) ==
LOC: NFLDREF 11:44
PROVIDERS: PCP Family Medicine; Visit Provider Family Medicine
DX: R35.0 Frequency of micturition (principal); R30.9 Painful micturition, unspecified
CPT/HCPCS: 87086

== ENCOUNTER 2024-05-08 13:09 | Outpatient (CLI) | payer OTHER, SELFPAY ==
--- OUTSIDE RECORDS SUMMARY | 2024-05-11 02:26 | XMS_ITS | Encounter Summary ---
Author Organization [facility] Address [address], [place] [address] Care Team Providers Care Metal Dealer Name Role Phone Alisha Kimball MD Primary Care Provider [phone] Encounter Details Date Type Department Care Team (Late st Contact Info) Description 07/28/2017 Consent for Procedure/Treatme nt [facility] Department INFORMED CONSENT FOR SLEEP/AUDIO/VIDEO Social History [...] st Contact Info) Description 06/13/2024 8:10 AM GRANT MANAGER Appointment [facility] Dental [facility] [address] [place] [phone] [facility] [address] [place], [place] [phone] documented as of this encounter Visit Diagnoses Not on filedocumented in this encounter Care Teams Metal Dealer Relationship Specialty Start Date End Date Alisha Kimball MD [address] [place] [address] PCP - General 07/08/05 documented as of this encounter
--- OUTSIDE RECORDS SUMMARY | 2024-05-11 02:26 | XMS_ITS | Clinical Summary ---
Author Organization [facility] Address [address], [place] [address] Care Team Providers Care Watch And Clock Repair Clerk Name Role Phone Alisha Kimball MD Primary Care Provider [phone] Source Comments You are receiving this document as you are listed as the primary care provider,follow-up provider, or the patient has been referred to you for consultation.This is in compliance with the Medicare andSal[facility] City Hospitalcaid EHR Incentive Program,which states Providers who transition their patient to another setting of careor provider of care or refers their patient to another provider of care shouldprovide summary care record for each transition of care or referral. [employer] Allergies Active Allergy Reactions Criticality Noted Date [...] Engaged in Disease Management-Diabetes: Marisol Cruz, RN [phone] Diabetes mellitus, type 2 05/14/2010 Encounters Date Type Department Care Team Description 02/24/2024 10:10 AM CDT Office Visit [facility] Dental Clinic [address] [address] Addie Friedman, [facility] Dental Hygiene (None. ) from Last 3 Months Immunizations Name Administration Dates Next Due Flu Vac (3+ yrs) 04/01/2012,05/01/2011, 0 Influenza IIV3 (Trivalent) F luzone Highdose, 65+ Yrs (85560) 03/28/2019 Influenza IIV4 (Quadrivalent ) 0.5mL (93809) 04/11/2018,05/19/2017,04/30/2016,2013 Influenza IIV4 (Quadrivalent ) Fluad, 65+ [...] Relation Name Status Comments Father (Age 64) [place] Mother (Age 76) ovarian ca ncer Brother 1 Alive Brother 2 Alive Brother 3 Alive Brother 4 Alive Brother 5 Alive Maternal Grandfather acciden t Maternal Grandmother [place] Paternal Grandfather [place] Paternal Grandmother [place] Sister Alive Son 1 Alive Son 2 [...] st Contact Info) Description 06/13/2024 8:10 AM SNOWSPORT INSTRUCTOR Appointment [facility] [place] [address] [place] [phone] Add[facility] [address] [place] [address] Health Maintenance Due Date Last [...] Random 72.7 mg/L 04/11/2020 5:52 PM CDT [facility] Creatinine, Urine, Random 129 >20 mg/dL 04/11/2020 5:52 PM CDT [facility]ENTER[facility] Albumin/Creati nine Ratio, Urine, Random 56(H) <30 mg/g 04/11/2020 5:52 PM CDT [facility] Urine,random 04/11/2020 11:0 0 AM CDT 04/11/2020 12:31 PM CDT Kareen Cohen APRN, DRY PLASTERER HELPER LAB_1 [facility] [address] [address], [facility] [phone] * (ABNORMAL) BASIC METABOLIC PANEL (04/11/2020 8:48 AM CDT) Sodium 139 136 - 145 mmol/L 04/11/2020 11:44 AM CDT [facility] Potassium 4.6 3.5 - 5.1 mmol/L 04/11/2020 11:44 AM T [facility] Chloride 105 98 - 109 mmol/L 04/11/2020 11:44 AM T [facility] CO2 26 20 - 29 mmol/L 04/11/2020 11:44 AM T [facility] Anion Gap 8 7 - 16 mmol/L 04/11/2020 11:44 AM T [facility] Calcium 9.1 8.4 - 10.4 mg/dL 04/11/2020 11:44 AM T [facility] BUN 16 7 - 26 mg/dL 04/11/2020 11:44 AM T [facility] Creatinine 0.87 0.55 - 1.02 mg/dL 04/11/2020 11:44 AM T [facility] GFR, Estimated >60 >60 mL/min/1. 73m2 04/11/2020 11:44 AM T [facility] Glucose 128(H) 70 - 100 mg/dL 04/11/2020 11:44 AM T [facility] Comment:The given reference range is for the fasting state. Non-fasting reference range for glucose is 70 - 180 mg/dL. Hours Fasting N/A 04/11/2020 11:44 AM T [facility] Blood Venipuncture / Unknown 04/11/2020 8:48 AM CDT 04/11/2020 8:48 AM CDT Janice Gill PA-C LAB_1 [facility] [address] [address], [facility] [phone] [facility] [address] [place] [address] [phone] * (ABNORMAL) Hgb A1C (04/11/2020 8:48 AM CDT) Hemoglobin A1C 7.2(H) <=5.6 % 04/11/2020 10:07 PM CDT [facility] Blood Venipuncture / Unknown 04/11/2020 8:48 AM CDT 04/11/2020 8:48 AM CDT Narrative [facility] - 04/11/2020 10:07 PM CDT For patients not previously diagnosed with diabetes: 5.7-6.4%: Increased risk for diabetes 6.5% and greater: Diagnostic for diabetes For patients diagnosed with diabetes: <8.0%: Goal of therapy for ages 18-75 Clinicians may recommend a higher or lower goal for specific individuals. Alisha Kimball MD LAB_1 [facility] [address] [phone] * DEXA Bone Density Spine/Hip (02/22/2020 9:18 AM CDT) Anatomical Region Laterality Modality Lower Extremity, Spine, Hip, L-Spine Other Narrative 02/22/2020 12:58 PM CDT Indication:Screening Sr. Vendor Management Associate and Model of Instrument: [employer] Demographics Age: 65 y.o. Gender: female Height [...] - 199 mg/dL 01/03/2020 3:07 PM CDT [facility] Triglyceride 157(H) <=149 mg/dL 01/03/2020 3:07 PM CDT [facility] HDL Cholesterol 46 >=40 mg/dL 01/03/2020 3:07 PM CDT [facility] LDL, Calculated 80 <130 mg/dL 01/03/2020 3:07 PM CDT [facility] Non HDL Chol, Calculated 111 mg/dL 01/03/2020 3:07 PM CDT [facility] Cholesterol/HDL Ratio 3.4 01/03/2020 3:07 PM CDT [facility] Hours Fasting 12 01/03/2020 3:07 PM T [facility] Blood Venipuncture / Unknown 01/03/2020 9:17 AM CDT 01/03/2020 9:17 AM CDT Alisha Kimball MD LAB_1 [facility] [address] [place] [address] [phone] [facility] [address] [place], [place] [phone] [place] [address] * HEP C recommended for patients born between 4170-2184 (12/07/2016 9:21 AM CDT) Anti-HCV Negative (Non Reactive) [facility] Comment: Antibodies to HCV not detected. Does not exclude the possibility of exposure to HCV. 12/07/2016 9:21 AM CDT 12/07/2016 9:22 AM CDT Narrative [facility] - 12/07/2016 2:01 PM CDT Performed at [facility], [address] [place] [address], [place], [place] ??[address] Alisha Kimball MD LAB_1 [facility] [phone] * COLONOSCOPY [[id number]] (04/01/2016 8:03 AM CDT) 04/01/2016 8:03 AM [...] Procedure Code(s): ?? --- Professional --- ? 34229, PT, Colonoscopy, flexible; with biopsy, single ? or multiple Diagnosis Code(s): ?? --- Professional --- ? Z12.11, Encounter for screening for malignant ? neoplasm of colon ? K62.1, Rectal polyp ? K57.30, Diverticulosis of large intestine without ? perforation or abscess without bleeding CPT copyright 2015 [employer]. All rights reserved. The codes documented in this report are preliminary and upon c architect review may be revised to meet current [...] fiber diet. Procedure Code(s): --- Professional --- 52430, PT, Colonoscopy, flexible; with biopsy, single or multiple Diagnosis Code(s): --- Professional --- Z12.11, Encounter for screening for malignant neoplasm of colon K62.1, Rectal polyp K57.30, Diverticulosis of large intestine without perforation or abscess without bleeding CPT copyright 2015 [employer]. All rights reserved. The codes documented in this report are preliminary and upon c architect review may be revised to meet current compliance requirements. Attending Participation: MD Jean Claude Stanton, 04/01/2016 8:30:39 AM Number of Addenda: 0 Note Initiated On: 04/01/2016 8:03 AM Jean Claude Chauhan MD [facility] [place], [place] from Last 3 Months or Most Recently Relevant to Health Maintenance Care Teams Watch And Clock Repair Clerk Relationship Specialty Start Date End Date Alisha Kimball MD [address] [place] [address] [facility] - General 07/08/05
--- OUTSIDE RECORDS SUMMARY | 2024-05-11 02:26 | XMS_ITS | Encounter Summary ---
Author Organization [facility] Address [address] [place] [address] Care Team Providers Care Inclusion Paraeducator Name Role Phone Alisha Kimball MD Primary Care Provider Encounter Details Date Type Department Care Team (Latest Contact Info) Description 06/07/1995 Orders Only Miky Sultana MD [address] [place] [address], [place] [id number] Social History Tobacco Use Types Packs/Day Years Used Date Smoking Tobacco: Never Assessed Sex and Gender Information Value Date Recorded Sex Assigned at Not on file Gender Identity Not on file Sexual Orientation Not on file documented as of this encounter Plan of Treatment Upcoming Encounters Date Type Department Care Team (Late st Contact Info) Description 06/13/2024 8:10 AM CLINIC DIRECTOR Appointment [facility] [address] [place] [phone] [facility] [address] [place], [place] [phone] documented as of this encounter Visit Diagnoses Not on filedocumented in this encounter Care Teams Inclusion Paraeducator Relationship Specialty Start Date End Date Alisha Kimball MD [address] [place], [place] [phone] PCP - General 07/08/05 documented as of this encounter
--- OUTSIDE RECORDS SUMMARY | 2024-05-11 02:26 | XMS_ITS | Encounter Summary ---
Author Organization [facility] Address [address] [place] [address] Care Team Providers Care Schedule Manager Name Role Phone Alisha Kimball MD Primary Care Provider [phone] Reason for Visit * Reason Comments Dental Hygiene None. Encounter Details Date Type Department Care Team (Late st Contact Info) Description 02/24/2024 10:10 AM CDT Office Visit [facility] [address] [phone] Addie Friedman, [facility] [address] [place], [place] [phone] Dental Hygiene (None. ) Social History Tobacco [...] this encounter Patient Instructions * Patient Instructions* dAdie Friedman RDH - 02/24/2024 10:10 AM CDT [...] agreement with Josue Kerns DDS (License #: [id number]) CHART REVIEW: Reviewed with patient: Medical history, [...] st Contact Info) Description 06/13/2024 8:10 AM ALPINE GUIDE Appointment [facility] Dental [facility] [address] [place] [phone] Addie Friedman RDH [address] [place] [address] Scheduled Orders Name Type Priority Associated Diagnoses Order Schedule PROPHYLAXIS-ADULT RECALL Dental Procedures Routine 1 Occurrences starting 02/24/2024 PERIODIC ORAL EVALUATION Dental Procedures Routine 1 Occurrences starting 02/24/2024 [id number] Dental Procedures Routine 1 Occurrences starting 02/24/2024 TOPICAL FLUORIDE VARNISH Dental Procedures Routine 1 Occurrences starting 02/24/2024 documented as of this encounter Procedures Procedure Name Priority Date/Time Associated Diagnosis Comments PROPHYLAXIS-ADULT RECALL Routine 02/24/2024 10:10 AM CDT Chronic periodontitis, localized, slight documented in this encounter Visit Diagnoses Diagnosis Chronic periodontitis, localized, slight- Primary documented in this encounter Care Teams Schedule Manager Relationship Specialty Start Date End Date Alisha Kimball MD [address] [place] [address] PCP - General 07/08/05 documented as of this encounter
--- OUTSIDE RECORDS SUMMARY | 2024-05-11 02:26 | XMS_ITS | Encounter Summary ---
Author Organization [facility] Address [address] [place] [address] Care Team Providers Care Hydrodynamics Teacher Name Role Phone Alisha Kimball MD Primary Care Provider [phone] Encounter Details Date Type Department Care Team (Latest Contact Info) Description 01/26/1995 Orders Only Miky Sultana MD [address] [place] [address], [place] [id number] Social History Tobacco Use Types Packs/Day Years Used Date Smoking Tobacco: Never Assessed Sex and Gender Information Value Date Recorded Sex Assigned at Not on file Gender Identity Not on file Sexual Orientation Not on file documented as of this encounter Plan of Treatment Upcoming Encounters Date Type Department Care Team (Late st Contact Info) Description 06/13/2024 8:10 AM SHOW CARD WRITER Appointment [facility] Dental [facility] [address] [place] [phone] [facility] [address] [place], [place] [phone] documented as of this encounter Visit Diagnoses Not on filedocumented in this encounter Care Teams Hydrodynamics Teacher Relationship Specialty Start Date End Date Alisha Kimball MD [address] [place], [place] [phone] PCP - General 07/08/05 documented as of this encounter
--- OUTSIDE RECORDS SUMMARY | 2024-05-11 02:26 | XMS_ITS | Encounter Summary ---
Author Organization [facility] Address [address] [address] Care Team Providers Care Geothermal Powerplant Supervisor Name Role Phone Alisha Kimball MD Primary Care Provider [phone] Encounter Details Date Type Department Care Team [...] st Contact Info) Description 06/13/2024 8:10 AM REGIONAL GUIDE Appointment [facility] [place] [address] [place] [phone] Addie Friedman, [facility] [address] [place], [place] [phone] documented as of this encounter Visit Diagnoses Not on filedocumented in this encounter Care Teams Geothermal Powerplant Supervisor Relationship Specialty Start Date End Date Alisha Kimball MD [address] [place], [place] [phone] PCP - General 07/08/05 documented as of this encounter
--- OUTSIDE RECORDS SUMMARY | 2024-05-11 02:26 | XMS_ITS | Encounter Summary ---
Author Organization [facility] Address [address] [place] [address] Care Team Providers Care Shank Turner Name Role Phone Alisha Kimball MD Primary Care Provider [phone] Encounter Details Date Type Department Care Team (Latest Contact Info) Description 06/10/1995 Orders Only Miky Sultana MD [address] [place] [address], [place] [id number] Social History Tobacco Use Types Packs/Day Years Used Date Smoking Tobacco: Never Assessed Sex and Gender Information Value Date Recorded Sex Assigned at Not on file Gender Identity Not on file Sexual Orientation Not on file documented as of this encounter Plan of Treatment Upcoming Encounters Date Type Department Care Team (Late st Contact Info) Description 06/13/2024 8:10 AM PETROLEUM SUPPLY SPECIALIST Appointment [facility] Dental [facility] [address] [place] [phone] [facility] [address] [place], [place] [phone] documented as of this encounter Visit Diagnoses Not on filedocumented in this encounter Care Teams Shank Turner Relationship Specialty Start Date End Date Alisha Kimball MD [address] [place], [place] [phone] PCP - General 07/08/05 documented as of this encounter
--- OUTSIDE RECORDS SUMMARY | 2024-05-11 02:26 | XMS_ITS | Encounter Summary ---
Author Organization [facility] Address [address], [place] [address] Care Team Providers Care Journeyman Molder Name Role Phone Alisha Kimball MD Primary Care Provider [phone] Encounter Details Date Type Department Care Team (Late st Contact Info) Description 06/07/2017 Correspondence [facility] [address] [place] [address] Radiology, Provider MRI SAFETY SHEET AND COMPATIBILITY [...] st Contact Info) Description 06/13/2024 8:10 AM CONNECTION WORKER Appointment [facility] [place] [address] [place] [address] [facility] [address] [place], [place] [phone] documented as of this encounter Visit Diagnoses Not on filedocumented in this encounter Care Teams Journeyman Molder Relationship Specialty Start Date End Date Alisha Kimball MD [address] [place], [place] [phone] PCP - General 07/08/05 documented as of this encounter
--- OUTSIDE RECORDS SUMMARY | 2024-05-11 02:26 | XMS_ITS | Encounter Summary ---
Author Organization [facility] Address [address] [place] [address] Care Team Providers Care Social Work Manager Name Role Phone Alisha Kimball MD Primary Care Provider [phone] Encounter Details Date Type Department Care Team (Late st Contact Info) Description 07/28/[address] [phone] SLEEP QUESTIONNAIRE Social History Tobacco Use Types [...] st Contact Info) Description 06/13/2024 8:10 AM RAILROAD COOK Appointment [facility] [place] [address] [place] [address] [facility] [address] [place], [place] [phone] documented as of this encounter Visit Diagnoses Not on filedocumented in this encounter Care Teams Social Work Manager Relationship Specialty Start Date End Date Alisha Kimball MD [address] [place], [place] [phone] PCP - General 07/08/05 documented as of this encounter
--- OUTSIDE RECORDS SUMMARY | 2024-05-11 02:26 | XMS_ITS | Encounter Summary ---
Author Organization [facility] Address [address] [place] [address] Care Team Providers Care Wagon Winder Name Role Phone Alisha Kimball MD Primary Care Provider [phone] Encounter Details Date Type Department Care Team (Latest Contact Info) Description 10/06/1994 Orders Only Miky Sultana MD [address] [place] [address], [place] [id number] Social History Tobacco Use Types Packs/Day Years Used Date Smoking Tobacco: Never Assessed Sex and Gender Information Value Date Recorded Sex Assigned at Not on file Gender Identity Not on file Sexual Orientation Not on file documented as of this encounter Plan of Treatment Upcoming Encounters Date Type Department Care Team (Late st Contact Info) Description 06/13/2024 8:10 AM CRAB CATCHER [facility]ointment [facility] Dental [facility] [address] [place] [phone] [facility] [address] [place], [place] [phone] documented as of this encounter Visit Diagnoses Not on filedocumented in this encounter Care Teams Wagon Winder Relationship Specialty Start Date End Date Alisha Kimball MD [address] [place], [place] [phone] PCP - General 07/08/05 documented as of this encounter
--- OUTSIDE RECORDS SUMMARY | 2024-05-11 02:26 | XMS_ITS | Encounter Summary ---
Author Organization [facility] Address [address], [place] [address] Care Team Providers Care Medical Clerical Assistant Name Role Phone Alisha Kimball MD Primary Care Provider [phone] Encounter Details Date Type Department Care Team [...] st Contact Info) Description 06/13/2024 8:10 AM FOOD TRADES ASSISTANTS Appointment [facility] [place] [address] [place] [phone] Addie Friedman, [facility] [address] [place], [place] [phone] documented as of this encounter Visit Diagnoses Not on filedocumented in this encounter Care Teams Medical Clerical Assistant Relationship Specialty Start Date End Date Alisah Kimball MD [address] [place], [place] [phone] PCP - General 07/08/05 documented as of this encounter
--- OUTSIDE RECORDS SUMMARY | 2024-05-11 02:26 | XMS_ITS | Encounter Summary ---
Author Organization [facility] Address [address], [place] [address] Care Team Providers Care Towerman Name Role Phone Alisha Kimball MD Primary Care Provider [phone] Encounter Details Date Type Department Care Team [...] st Contact Info) Description 06/13/2024 8:10 AM SAFETY INTERN Appointment [facility] [place] [address] [place] [phone] FriedmanAddie, [facility] [address] [place], [place] [phone] documented as of this encounter Visit Diagnoses Not on filedocumented in this encounter Care Teams Towerman Relationship Specialty Start Date End Date Alisha Kimball MD [address] [place] [phone] PCP - General 07/08/05 documented as of this encounter
--- OUTSIDE RECORDS SUMMARY | 2024-05-11 02:26 | XMS_ITS | Encounter Summary ---
Author Organization [facility] Address [address] [place] [address] Care Team Providers Care Multimedia Technician Name Role Phone Alisha Kimball MD Primary Care Provider [phone] Encounter Details Date Type Department Care Team (Latest Contact Info) Description 10/26/1994 Orders Only Miky Sultana MD [address] [place] [address], [place] [id number] Social History Tobacco Use Types Packs/Day Years Used Date Smoking Tobacco: Never Assessed Sex and Gender Information Value Date Recorded Sex Assigned at Not on file Gender Identity Not on file Sexual Orientation Not on file documented as of this encounter Plan of Treatment Upcoming Encounters Date Type Department Care Team (Late st Contact Info) Description 06/13/2024 8:10 AM BLACK TOP ROLLER Appointment [facility] Dental [facility] [address] [place] [phone] Add[facility] [address] [place], [place] [phone] documented as of this encounter Visit Diagnoses Not on filedocumented in this encounter Care Teams Multimedia Technician Relationship Specialty Start Date End Date Alisha Kimball MD [address] [place], [place] [phone] PCP - General 07/08/05 documented as of this encounter
--- OUTSIDE RECORDS SUMMARY | 2024-05-11 02:26 | XMS_ITS | Encounter Summary ---
Author Organization [facility] Address [address], [place] [address] Care Team Providers Care Leather Goods Maker Name Role Phone Alisha Kimball MD Primary Care Provider [phone] Encounter Details Date Type Department Care Team [...] st Contact Info) Description 06/13/2024 8:10 AM TELEPHONE MESSENGER Appointment [facility] [place] [address] [place] [phone] Addie Friedman, [facility] [address] [place], [place] [phone] documented as of this encounter Visit Diagnoses Not on filedocumented in this encounter Care Teams Leather Goods Maker Relationship Specialty Start Date End Date Alisha Kimball MD [address] [place], [place] [phone] PCP - General 07/08/05 documented as of this encounter
--- OUTSIDE RECORDS SUMMARY | 2024-05-11 02:26 | XMS_ITS | Encounter Summary ---
Author Organization [facility] Address [address] [place] [address] Care Team Providers Care Borough Coordinator Name Role Phone Alisha Kimball MD Primary Care Provider [phone] Encounter Details Date Type Department Care Team (Late st Contact Info) Description 11/16/2016 Refill Order [facility] 8450 [place] [address] Alisha Kimball MD [address] [place], [place] [phone] Social History Tobacco Use Types Packs/Day Years [...] st Contact Info) Description 06/13/2024 8:10 AM BUS INFO CONSULTANT Appointment [facility] Dental [facility] [address] [place] [phone] Addie Friedman [facility] [address] [place] [address] documented as of this encounter Results * Sodium (12/01/2016 7:14 AM CDT) Sodium 140 136 - 145 mmol/L [facility] 12/01/2016 7:14 AM CDT 12/01/2016 7:16 AM CDT Narrative [facility] - 12/01/2016 1:01 PM CDT Performed at [facility], [address] [place] [address] ??[id number] Alisha Kimball MD LAB_1 [facility] [phone] documented in this encounter Visit Diagnoses Diagnosis [...] disorder documented in this encounter Care Teams Borough Coordinator Relationship Specialty Start Date End Date Alisha Kimball MD [address]50 [place] [address] PCP - General 07/08/05 documented as of this encounter
--- OUTSIDE RECORDS SUMMARY | 2024-05-11 02:26 | XMS_ITS | Encounter Summary ---
Author Organization [facility] Address [address] [place] [address] Care Team Providers Care Blending Operator Name Role Phone Alisha Kimball MD Primary Care Provider [phone] Encounter Details Date Type Department Care Team (Latest Contact Info) Description 08/27/1999 Orders Only Miky Sultana MD [address] [place] [address], [place] [address] Social History Tobacco Use Types Packs/Day Years Used Date Smoking Tobacco: Never Assessed Sex and Gender Information Value Date Recorded Sex Assigned at Not on file Gender Identity Not on file Sexual Orientation Not on file documented as of this encounter Plan of Treatment Upcoming Encounters Date Type Department Care Team (Late st Contact Info) Description 06/13/2024 8:10 AM HR ANALYST Appointment [facility] Dental [facility] [address] [place] [phone] [facility] [address] [place], [place] [phone] documented as of this encounter Visit Diagnoses Not on filedocumented in this encounter Care Teams Blending Operator Relationship Specialty Start Date End Date Alisha Kimball MD [address] [place], [place] [phone] PCP - General 07/08/05 documented as of this encounter
--- OUTSIDE RECORDS SUMMARY | 2024-05-11 02:26 | XMS_ITS | Encounter Summary ---
Author Organization [facility] Address [address], [place] [address] Care Team Providers Care Cheese Maker Name Role Phone Alisha Kimball MD Primary Care Provider [phone] Encounter Details Date Type Department Care Team (Late st Contact Info) Description 04/01/2016 Consent for Procedure/Treatme nt [facility] Department INFORMED CONSENT RECORD Social History [...] st Contact Info) Description 06/13/2024 8:10 AM RECORD TABULATING CLERK Appointment [facility] Dental [facility] [address] [place] [phone] Add[facility] [address] [place] [address] documented as of this encounter Visit Diagnoses Not on filedocumented in this encounter Care Teams Cheese Maker Relationship Specialty Start Date End Date Alisha Kimball MD [address] [place], [place] [phone] PCP - General 07/08/05 documented as of this encounter
--- OUTSIDE RECORDS SUMMARY | 2024-05-11 02:26 | XMS_ITS | Encounter Summary ---
Author Organization [facility] Address [address] [address] Care Team Providers Care Insole Department Worker Name Role Phone Alisha Kimball MD Primary Care Provider [phone] Encounter Details Date Type Department Care Team (Latest Contact Info) Description 12/12/1998 Orders Only So Li MD [address] [place], [place] [phone] Social History Tobacco Use Types Packs/Day Years Used Date Smoking Tobacco: Never Assessed Sex and Gender Information Value Date Recorded Sex Assigned at Not on file Gender Identity Not on file Sexual Orientation Not on file documented as of this encounter Plan of Treatment Upcoming Encounters Date Type Department Care Team (Late st Contact Info) Description 06/13/2024 8:10 AM SWITCH BOX INSTALLER Appointment [facility] [address] [place] [phone] Add[facility] [address] [place], [place] [phone] documented as of this encounter Visit Diagnoses Not on filedocumented in this encounter Care Teams Insole Department Worker Relationship Specialty Start Date End Date Alisha Kimball MD [address] [place], [place] [phone] PCP - General 07/08/05 documented as of this encounter
--- OUTSIDE RECORDS SUMMARY | 2024-05-11 02:26 | XMS_ITS | Encounter Summary ---
Author Organization [facility] Address [address], [place] [address] Care Team Providers Care Nursery Rn Name Role Phone Alisha Kimball MD Primary Care Provider [phone] Encounter Details Date Type Department Care Team [...] st Contact Info) Description 06/13/2024 8:10 AM SECURITY MANAGER Appointment [facility] [place] [address] [place] [phone] Addie Friedman, [facility] [address] [place], [place] [phone] documented as of this encounter Visit Diagnoses Not on filedocumented in this encounter Care Teams Nursery Rn Relationship Specialty Start Date End Date Alisha Kimball MD [address] [place], [place] [phone] PCP - General 07/08/05 documented as of this encounter
== END 2024-05-08 13:10 | disposition home or self-care (01) ==
LOC: NFLDREF 05-11 02:22
PROVIDERS: PCP Family Medicine; Referring Provider Family Medicine; Visit Provider Family Medicine
DX: R31.0 Gross hematuria (principal)
CPT/HCPCS: 87086; 87186

== ENCOUNTER 2024-05-23 08:52 | Outpatient (CLI) | payer OTHER, SELFPAY ==
--- OUTSIDE RECORDS SUMMARY | 2024-05-26 09:36 | XMS_ITS | Encounter Summary ---
Author Organization [facility] Address [address] [place] [address] Care Team Providers Care Pivot End Polisher Name Role Phone Alisha Kimball MD Primary Care Provider [phone] Encounter Details Date Type Department Care Team (Late st Contact Info) Description 11/16/2016 Refill Order [facility] 8450 [place] [address] Alisha Kimball MD [address]50 [place], [place] [phone] Social History Tobacco Use Types Packs/Day Years [...] st Contact Info) Description 06/13/2024 8:10 AM TRACK PATROL Appointment [facility] Dental [facility] [address] [place] [phone] Addie Friedman [facility] [address] [place] [address] documented as of this encounter Results * Sodium (12/01/2016 7:14 AM CDT) Sodium 140 136 - 145 mmol/L [facility] 12/01/2016 7:14 AM CDT 12/01/2016 7:16 AM CDT Narrative [facility] - 12/01/2016 1:01 PM CDT Performed at [facility], [address] [place] [address] Alisha Kimball MD LAB_1 [facility] [phone] documented in this encounter Visit Diagnoses Diagnosis [...] disorder documented in this encounter Care Teams Pivot End Polisher Relationship Specialty Start Date End Date Alisha Kimball MD [address] [place] [address] PCP - General 07/08/05 documented as of this encounter
--- OUTSIDE RECORDS SUMMARY | 2024-05-26 09:36 | XMS_ITS | Encounter Summary ---
Author Organization [facility] Address [address], [place] [address] Care Team Providers Care Paper Mill Manager Name Role Phone Alisha Kimball MD Primary Care Provider [phone] Encounter Details Date Type Department Care Team [...] st Contact Info) Description 06/13/2024 8:10 AM PATIENT EXPERIENCE COORDINATOR Appointment [facility] [place] [address] [place] [phone] Addie Friedamn, [facility] [address] [place], [place] [phone] documented as of this encounter Visit Diagnoses Not on filedocumented in this encounter Care Teams Paper Mill Manager Relationship Specialty Start Date End Date Alisha Kimball MD [address] [place], [place] [phone] PCP - General 07/08/05 documented as of this encounter
--- OUTSIDE RECORDS SUMMARY | 2024-05-26 09:36 | XMS_ITS | Encounter Summary ---
Author Organization [facility] Address [address] [place] [address] Care Team Providers Care Angle Shear Set Up Operator Name Role Phone Alisha Kimball MD Primary Care Provider [phone] Encounter Details Date Type Department Care Team (Late st Contact Info) Description 07/28/[address] [phone] SLEEP QUESTIONNAIRE Social History Tobacco Use Types [...] st Contact Info) Description 06/13/2024 8:10 AM SERVICE ORDER DISPATCHER Appointment [facility] [place] [address] [place] [address] [facility] [address] [place], [place] [phone] documented as of this encounter Visit Diagnoses Not on filedocumented in this encounter Care Teams Angle Shear Set Up Operator Relationship Specialty Start Date End Date Alisha Kimball MD [address] [place], [place] [phone] PCP - General 07/08/05 documented as of this encounter
--- OUTSIDE RECORDS SUMMARY | 2024-05-26 09:36 | XMS_ITS | Encounter Summary ---
Author Organization [facility] Address [address], [place] [address] Care Team Providers Care Commercial Baking Teacher Name Role Phone Alisha Kimball MD Primary Care Provider [phone] Encounter Details Date Type Department Care Team [...] st Contact Info) Description 06/13/2024 8:10 AM ROCKBOARD LATHER Appointment [facility] [place] [address] [place] [phone] Addie Friedman, [facility] [address] [place], [place] [phone] documented as of this encounter Visit Diagnoses Not on filedocumented in this encounter Care Teams Commercial Baking Teacher Relationship Specialty Start Date End Date Alisha Kimball MD [address] [place], [place] [phone] PCP - General 07/08/05 documented as of this encounter
--- OUTSIDE RECORDS SUMMARY | 2024-05-26 09:36 | XMS_ITS | Encounter Summary ---
Author Organization [facility] Address [address] [address] Care Team Providers Care Commercial Real Estate Lender Name Role Phone Alisha Kimball MD Primary Care Provider [phone] Encounter Details Date Type Department Care Team [...] st Contact Info) Description 06/13/2024 8:10 AM REPORT SPECIALIST Appointment [facility] [place] [address] [place] [phone] Addie Friedman, [facility] [address] [place], [place] [phone] documented as of this encounter Visit Diagnoses Not on filedocumented in this encounter Care Teams Commercial Real Estate Lender Relationship Specialty Start Date End Date Alisha Kimball MD [address] [place], [place] [phone] PCP - General 07/08/05 documented as of this encounter
--- OUTSIDE RECORDS SUMMARY | 2024-05-26 09:36 | XMS_ITS | Encounter Summary ---
Author Organization [facility] Address [address] [place] [address] Care Team Providers Care Centrifugal Supervisor Name Role Phone Alisha Kimball MD Primary Care Provider [phone] Encounter Details Date Type Department Care Team (Latest Contact Info) Description 06/10/1995 Orders Only Miky Sultana MD [address] [place] [address], [place] [id number] Social History Tobacco Use Types Packs/Day Years Used Date Smoking Tobacco: Never Assessed Sex and Gender Information Value Date Recorded Sex Assigned at Not on file Gender Identity Not on file Sexual Orientation Not on file documented as of this encounter Plan of Treatment Upcoming Encounters Date Type Department Care Team (Late st Contact Info) Description 06/13/2024 8:10 AM SANDWICH PEDDLER Appointment [facility] Dental [facility] [address] [place] [phone] [facility] [address] [place], [place] [phone] documented as of this encounter Visit Diagnoses Not on filedocumented in this encounter Care Teams Centrifugal Supervisor Relationship Specialty Start Date End Date Alisha Kimball MD [address] [place], [place] [phone] PCP - General 07/08/05 documented as of this encounter
--- OUTSIDE RECORDS SUMMARY | 2024-05-26 09:36 | XMS_ITS | Encounter Summary ---
Author Organization [facility] Address [address] [place] [address] Care Team Providers Care Specimen Transporter Name Role Phone Alisha Kimball MD Primary Care Provider [phone] Encounter Details Date Type Department Care Team (Latest Contact Info) Description 01/26/1995 Orders Only Miky Sultana MD [address] [place] [address], [place] [id number] Social History Tobacco Use Types Packs/Day Years Used Date Smoking Tobacco: Never Assessed Sex and Gender Information Value Date Recorded Sex Assigned at Not on file Gender Identity Not on file Sexual Orientation Not on file documented as of this encounter Plan of Treatment Upcoming Encounters Date Type Department Care Team (Late st Contact Info) Description 06/13/2024 8:10 AM APARTMENT COMMUNITY ASSISTANT MANAGER Appointment [facility] Dental [facility] [address] [place] [phone] [facility] [address] [place], [place] [phone] documented as of this encounter Visit Diagnoses Not on filedocumented in this encounter Care Teams Specimen Transporter Relationship Specialty Start Date End Date Alisha Kimball MD [address] [place], [place] [phone] PCP - General 07/08/05 documented as of this encounter
--- OUTSIDE RECORDS SUMMARY | 2024-05-26 09:36 | XMS_ITS | Encounter Summary ---
Author Organization [facility] Address [address], [place] [address] Care Team Providers Care Director Market Intelligence Name Role Phone Alisha Kimball MD Primary Care Provider [phone] Encounter Details Date Type Department Care Team (Late st Contact Info) Description 06/07/2017 Correspondence [facility] Radiology [address] [place] [address] Radiology, Provider MRI SAFETY SHEET AND COMPATIBILITY [...] st Contact Info) Description 06/13/2024 8:10 AM COMPLIANCE COORDINATOR Appointment [facility] [place] [address] [place] [phone] [facility] [address] [place], [place] [phone] documented as of this encounter Visit Diagnoses Not on filedocumented in this encounter Care Teams Director Market Intelligence Relationship Specialty Start Date End Date Alisha Kimball MD [address] [place], [place] [phone] PCP - General 07/08/05 documented as of this encounter
--- OUTSIDE RECORDS SUMMARY | 2024-05-26 09:36 | XMS_ITS | Encounter Summary ---
Author Organization [facility] Address [address] [place] [address] Care Team Providers Care Broadcast Correspondent Name Role Phone Alisha Kimball MD Primary Care Provider [phone] Reason for Visit * Reason Comments Dental Hygiene None. Encounter Details Date Type Department Care Team (Late st Contact Info) Description 02/24/2024 10:10 AM CDT Office Visit [facility] Clinic [address] [phone] Addie Friedman, [facility] [address] [place], [place] [phone] Dental Hygiene (None. ) Social History Tobacco [...] agreement with Josue Kerns DDS (License #: [id number]) CHART REVIEW: Reviewed with patient: Medical history, [...] st Contact Info) Description 06/13/2024 8:10 AM ENTERPRISE ACCOUNT MANAGER Appointment [facility] Dental [facility] [address] [place] [phone] Addie Friedman [facility] [address] [place] [address] Scheduled Orders Name Type Priority Associated Diagnoses Order Schedule PROPHYLAXIS-ADULT RECALL Dental Procedures Routine 1 Occurrences starting 02/24/2024 PERIODIC ORAL EVALUATION Dental Procedures Routine 1 Occurrences starting 02/24/2024 [id number] Dental Procedures Routine 1 Occurrences starting 02/24/2024 TOPICAL FLUORIDE VARNISH Dental Procedures Routine 1 Occurrences starting 02/24/2024 documented as of this encounter Procedures Procedure Name Priority Date/Time Associated Diagnosis Comments PROPHYLAXIS-ADULT RECALL Routine 02/24/2024 10:10 AM CDT Chronic periodontitis, localized, slight documented in this encounter Visit Diagnoses Diagnosis Chronic periodontitis, localized, slight- Primary documented in this encounter Care Teams Broadcast Correspondent Relationship Specialty Start Date End Date Alisha Kimball MD [address] [place] [address] PCP - General 07/08/05 documented as of this encounter
--- OUTSIDE RECORDS SUMMARY | 2024-05-26 09:36 | XMS_ITS | Encounter Summary ---
Author Organization [facility] Address [address] [place] [address] Care Team Providers Care Audio Visual Arts Director Name Role Phone Alisha Kimball MD Primary Care Provider [phone] Encounter Details Date Type Department Care Team (Latest Contact Info) Description 10/06/1994 Orders Only Miky Sultana MD [address] [place] [address], [place] [id number] Social History Tobacco Use Types Packs/Day Years Used Date Smoking Tobacco: Never Assessed Sex and Gender Information Value Date Recorded Sex Assigned at Not on file Gender Identity Not on file Sexual Orientation Not on file documented as of this encounter Plan of Treatment Upcoming Encounters Date Type Department Care Team (Late st Contact Info) Description 06/13/2024 8:10 AM CERTIFIED PERSONAL FINANCE COUNSELOR Appointment [facility] Dental [facility] [address] [place] [phone] [facility] [address] [place], [place] [phone] documented as of this encounter Visit Diagnoses Not on filedocumented in this encounter Care Teams Audio Visual Arts Director Relationship Specialty Start Date End Date Alisha Kimball MD [address] [place], [place] [phone] PCP - General 07/08/05 documented as of this encounter
--- OUTSIDE RECORDS SUMMARY | 2024-05-26 09:36 | XMS_ITS | Encounter Summary ---
Author Organization [facility] Address [address] [place] [address] Care Team Providers Care Briar Shop Supervisor Name Role Phone Alisha Kimball MD Primary Care Provider [phone] Encounter Details Date Type Department Care Team (Latest Contact Info) Description 10/26/1994 Orders Only Miky Sultana MD [address] [place] [address], [place] [id number] Social History Tobacco Use Types Packs/Day Years Used Date Smoking Tobacco: Never Assessed Sex and Gender Information Value Date Recorded Sex Assigned at Not on file Gender Identity Not on file Sexual Orientation Not on file documented as of this encounter Plan of Treatment Upcoming Encounters Date Type Department Care Team (Late st Contact Info) Description 06/13/2024 8:10 AM LAN MANAGER Appointment [facility] Dental [facility] [address] [place] [phone] [facility] [address] [place], [place] [phone] documented as of this encounter Visit Diagnoses Not on filedocumented in this encounter Care Teams Briar Shop Supervisor Relationship Specialty Start Date End Date Alisha Kimball MD [address] [place], [place] [phone] PCP - General 07/08/05 documented as of this encounter
--- OUTSIDE RECORDS SUMMARY | 2024-05-26 09:36 | XMS_ITS | Encounter Summary ---
Author Organization [facility] Address [address] [place] [address] Care Team Providers Care Screw Remover Name Role Phone Alisha Kimball MD Primary Care Provider [phone] Encounter Details Date Type Department Care Team (Latest Contact Info) Description 06/07/1995 Orders Only Miky Sultana MD [address] [place] [address], [place] [id number] Social History Tobacco Use Types Packs/Day Years Used Date Smoking Tobacco: Never Assessed Sex and Gender Information Value Date Recorded Sex Assigned at Not on file Gender Identity Not on file Sexual Orientation Not on file documented as of this encounter Plan of Treatment Upcoming Encounters Date Type Department Care Team (Late st Contact Info) Description 06/13/2024 8:10 AM NATIONAL RECRUITER Appointment [facility] Dental [facility] [address] [place] [phone] [facility] [address] [place], [place] [phone] documented as of this encounter Visit Diagnoses Not on filedocumented in this encounter Care Teams Screw Remover Relationship Specialty Start Date End Date Alisha Kimball MD [address] [place], [place] [phone] PCP - General 07/08/05 documented as of this encounter
--- OUTSIDE RECORDS SUMMARY | 2024-05-26 09:36 | XMS_ITS | Encounter Summary ---
Author Organization [facility] Address [address], [place] [address] Care Team Providers Care Senior Administrative Support Name Role Phone Alisha Kimball MD Primary Care Provider [phone] Encounter Details Date Type Department Care Team (Latest Contact Info) Description 12/12/1998 Orders Only So Li MD [address] [place], [place] [phone] Social History Tobacco Use Types Packs/Day Years Used Date Smoking Tobacco: Never Assessed Sex and Gender Information Value Date Recorded Sex Assigned at Not on file Gender Identity Not on file Sexual Orientation Not on file documented as of this encounter Plan of Treatment Upcoming Encounters Date Type Department Care Team (Late st Contact Info) Description 06/13/2024 8:10 AM CITY MAIL CARRIER Appointment [facility] Dental [facility] [address] [place] [phone] [facility] [address] [place], [place] [phone] documented as of this encounter Visit Diagnoses Not on filedocumented in this encounter Care Teams Senior Administrative Support Relationship Specialty Start Date End Date Alisha Kimball MD [address] [place], [place] [phone] PCP - General 07/08/05 documented as of this encounter
--- OUTSIDE RECORDS SUMMARY | 2024-05-26 09:36 | XMS_ITS | Encounter Summary ---
Author Organization [facility] Address [address] [address] Care Team Providers Care Clothing Busheler Name Role Phone Alisha Kimball MD Primary Care Provider [phone] Encounter Details Date Type Department Care Team (Late st Contact Info) Description 04/01/2016 Consent for Procedure/Treatme nt [facility] Department INFORMED CONSENT RECORD Social History Tobacco [...] st Contact Info) Description 06/13/2024 8:10 AM MANAGER BUSINESS CONTINUITY Appointment [facility] Dental [facility] [address] [place] [phone] [facility] [address] [place] [address] documented as of this encounter Visit Diagnoses Not on filedocumented in this encounter Care Teams Clothing Busheler Relationship Specialty Start Date End Date Alisha Kimball MD [address] [place], [place] [phone] PCP - General 07/08/05 documented as of this encounter
--- OUTSIDE RECORDS SUMMARY | 2024-05-26 09:36 | XMS_ITS | Encounter Summary ---
Author Organization [facility] Address [address], [place] [address] Care Team Providers Care Meter Reader Inspector Name Role Phone Alisha Kimball MD Primary Care Provider [phone] Encounter Details Date Type Department Care Team (Late st Contact Info) Description 07/28/2017 Consent for Procedure/Treatme nt [facility] Department INFORMED CONSENT FOR SLEEP/AUDIO/VIDEO Social [...] st Contact Info) Description 06/13/2024 8:10 AM DRAW STRING KNOTTER Appointment [facility] Dental [facility] [address] [place] [phone] [facility] [address] [place], [place] [phone] documented as of this encounter Visit Diagnoses Not on filedocumented in this encounter Care Teams Meter Reader Inspector Relationship Specialty Start Date End Date Alisha Kimball MD [address] [place] [address] PCP - General 07/08/05 documented as of this encounter
--- OUTSIDE RECORDS SUMMARY | 2024-05-26 09:36 | XMS_ITS | Clinical Summary ---
[facility] Organization [facility] Address [address], [place] [address] Care Team Providers Care Down Filler Name Role Phone Alisha Kimball MD Primary Care Provider [phone] Source Comments You are receiving this document [...] for each transition of care or referral. [place] Allergies Active Allergy Reactions Criticality Noted Date [...] Engaged in Disease Management-Diabetes: Marisol Cruz, RN [phone] Diabetes mellitus, type 2 05/14/2010 Encounters Date Type Department Care Team Description 02/24/2024 10:10 AM CDT Office Visit [facility] [address] [address] Addie Friedman, [facility] Dental Hygiene (None. ) from Last 3 Months Immunizations Name Administration Dates Next Due Flu Vac (3+ yrs) 04/01/2012,05/01/2011, 0 Influenza IIV3 (Trivalent) F luzone Highdose, 65+ Yrs (42269) 03/28/2019 Influenza IIV4 (Quadrivalent ) 0.5mL (75542) 04/11/2018,05/19/2017,04/30/2016,2013 Influenza IIV4 (Quadrivalent ) Fluad, 65+ [...] Relation Name Status Comments Father (Age 64) RI Mother (Age 76) ovarian ca ncer Brother 1 Alive Brother 2 Alive Brother 3 Alive Brother 4 Alive Brother 5 Alive Maternal Grandfather acciden t Maternal Grandmother RI Paternal Grandfather RI Paternal Grandmother RI Sister Alive Son 1 Alive Son 2 [...] 60 02/24/2024 10:18 AM CDT Temperature 36.6 C (97.8 F) 04/16/2020 11:54 AM CDT Respiratory Rate 20 [...] st Contact Info) Description 06/13/2024 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 [facility] [place] [address] [place] [phone] Addie Friedman, [facility] [address] [place], [place] [phone] Health Maintenance Due Date Last Done Comments RSV (1 - Risk 60-74 years 1-dose series) 2014 Diabetes: HGBA1C 10/10/2020 04/11/2020, 07/2019, 12/02/2018, Additional history exists Diabetes: Foot Exam 01/02/2021 01/03/2020, 12/12/2018, 12/08/2017, Additional history exists Medicare Annual Wellness Visit 01/02/2021 01/03/2020, 01/03/2020 Pneumococcal 65+ Yrs (3 - PPSV23 or PCV20) 01/02/2021 01/03/2020, 10/31/2012 Diabetes: Eye Exam 01/24/2021 01/25/2020, 0 01/25/2020, 01/25/2020, Additional history exists Mammogram 02/11/2021 02/12/2020, 03/2019, 01/18/2018, Additional history exists Colonoscopy 04/01/2021 04/01/2016, [...] Random 72.7 mg/L 04/11/2020 5:52 PM CDT [facility] Creatinine, Urine, Random 129 >20 mg/dL 04/11/2020 5:52 PM CDT [facility] Albumin/Creati nine Ratio, Urine, Random 56(H) <30 mg/g 04/11/2020 5:52 PM CDT [facility] Urine,random 04/11/2020 11:0 0 AM CDT 04/11/2020 12:31 PM CDT Kareen Cohen APRN, LABORATORY GENETICIST LAB_1 [facility] [address] [address], [facility] [phone] * (ABNORMAL) BASIC METABOLIC PANEL (04/11/2020 8:48 AM CDT) Sodium 139 136 - 145 mmol/L 04/11/2020 11:44 AM CDT [facility] Potassium 4.6 3.5 - 5.1 mmol/L 04/11/2020 11:44 AM T [facility] Chloride 105 98 - 109 mmol/L 04/11/2020 11:44 AM T [facility] CO2 26 20 - 29 mmol/L 04/11/2020 11:44 AM T [facility] Anion Gap 8 7 - 16 mmol/L 04/11/2020 11:44 AM T [facility] Calcium 9.1 8.4 - 10.4 mg/dL 04/11/2020 11:44 AM T [facility] BUN 16 7 - 26 mg/dL 04/11/2020 11:44 AM T [facility] Creatinine 0.87 0.55 - 1.02 mg/dL 04/11/2020 11:44 AM T [facility] GFR, Estimated >60 >60 mL/min/1. 73m2 04/11/2020 11:44 AM [facility] Glucose 128(H) 70 - 100 mg/dL 04/11/2020 11:44 AM T [facility] Comment:The given reference range is for the fasting state. Non-fasting reference range for glucose is 70 - 180 mg/dL. Hours Fasting N/A 04/11/2020 11:44 AM [facility] Blood Venipuncture / Unknown 04/11/2020 8:48 AM CDT 04/11/2020 8:48 AM T Janice Gill PA-C LAB_1 [facility] [address] [address], [facility] [phone] [facility] [address] [place] [address], [facility] [phone] * (ABNORMAL) Hgb A1C (04/11/2020 8:48 AM CDT) Hemoglobin A1C 7.2(H) <=5.6 % 04/11/2020 10:07 PM CDT [facility] Blood Venipuncture / Unknown 04/11/2020 8:48 AM CDT 04/11/2020 8:48 AM CDT Narrative [facility] - 04/11/2020 10:07 PM CDT For patients not previously diagnosed with diabetes: 5.7-6.4%: Increased risk for diabetes 6.5% and greater: Diagnostic for diabetes For patients diagnosed with diabetes: <8.0%: Goal of therapy for ages 18-75 Clinicians may recommend a higher or lower goal for specific individuals. 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 Gender: female Height [...] AP spine (L1-L4) Left hip (neck) Left hip (total) BMD (gm/cm2) 1.229 1.069 1.046 T score 1.7 2.0 0.9 Z score 3.5 3.5 2.1 %change from previous scan dated: 05/15/10 8.1% -11.6% FRAX Score: 10 YR Risk Hip Fracture % Typical threshold to start therapy in patients is a 10-year risk of hip fracture >3%. Clinician s judgment and/or patient preferences may indicate treatment for people with 10-year fracture probabilities above or below these levels. 10 YR Risk Major Osteoporotic Fracture % Typical threshold to start therapy in patients [...] and fall prevention. *Consider follow up DXA in 3-5 years, unless clinical circumstances change. The changes in bone mineral density at the spine and hip were statistically significant and clinically important. WHO DEFINITIONS: Normal BMD: T-score ? -1.0 Osteopenia: T-score between -1.0 and -2.5 Osteoporosis: T-score ? -2.5 FRAX Score : The FRAX algorithms give the 10-year probability of fracture. The output is a 10-year probability of hip fracture and the 10-year probability of a major osteoporotic fracture (clinical spine, forearm, hip or shoulder fracture). The FRAX score takes into account the bone density, but also age, gender, weight, height, previous fracture, parental hip fracture, smoking status, glucocorticoid intake, history of RA, secondary osteoporosis, and high alcohol intake in determining fracture risk in patients with osteopenia and osteoporosis. FRAX and Fracture Risk Categories in terms of major osteoporotic fracture risk (clinical spine, forearm, hip, or shoulder): < 10% = low fracture risk ? 10% and <15% = mildly increased fracture risk ? 15% and <20% = moderately increased fracture risk ? 20% and <30% = high fracture risk ? 30% = very high fracture risk A clinician may consider FDA-approved medical therapies in postmenopausal women and men aged 50 years and older, if one or more of the following is present (clinical correlation required and therapy may not always be indicated): 1. The patient has a hip or vertebral (clinical or morphometric) fracture. 2. T-score ? -2.5 at the femoral neck, hip, or spine after appropriate evaluation to exclude secondary causes. 3. Low bone mass (T-score between -1.0 and -2.5 at the femoral neck, hip or spine) and a 10-year probability of a hip fracture ? 3% or a 10-year probability of a major osteoporosis-related fracture ? 20% based on the FRAX scores. 4. Clinicians judgment and/or patient preferences may result in [...] There is no radiographic evidence of malignancy. Alisha Kimball MD RAD MIKEY * (ABNORMAL) Lipid Panel and Direct LDL(If Needed) (01/03/2020 9:17 AM CDT) Cholesterol 157 0 - 199 mg/dL 01/03/2020 3:07 PM CDT [facility] Triglyceride 157(H) <=149 mg/dL 01/03/2020 3:07 PM CDT [facility] HDL Cholesterol 46 >=40 mg/dL 01/03/2020 3:07 PM CDT [facility] LDL, Calculated 80 <130 mg/dL 01/03/2020 3:07 PM CDT [facility] Non HDL Chol, Calculated 111 mg/dL 01/03/2020 3:07 PM CDT [facility] Cholesterol/HDL Ratio 3.4 01/03/2020 3:07 PM CDT [facility] Hours Fasting 12 01/03/2020 3:07 PM CDT [facility] Blood Venipuncture / Unknown 01/03/2020 9:17 AM CDT 01/03/2020 9:17 AM CDT Alisha Kimball MD LAB_1 Performing Organization Address [facility] de Phone Number [address] [phone] [phone] * HEP C recommended for patients born between 3991-6938 (12/07/2016 9:21 AM CDT) [facility] Anti-HCV Negative (Non Reactive) [facility] Comment: Antibodies to HCV not detected. Does not exclude the possibility of exposure to HCV. 12/07/2016 9:21 AM CDT 12/07/2016 9:22 AM CDT Narrative [facility] - 12/07/2016 2:01 PM CDT Performed at [facility], [address] [place] [address] Alisha Kimball MD LAB_1 Performing Organization Address [facility] Co de Phone Number [facility] [phone] * COLONOSCOPY [[id number]] (04/01/2016 8:03 AM CDT) 04/01/2016 8:03 AM CDT Narrative [facility]) - 04/01/2016 8:31 AM CDT Instrument Name: 181 Indications: Screening for colorectal [...] fiber diet. Procedure Code(s): --- Professional --- 64497, PT, Colonoscopy, flexible; with biopsy, single or multiple Diagnosis Code(s): --- Professional --- Z12.11, Encounter for screening for malignant neoplasm of colon K62.1, Rectal polyp K57.30, Diverticulosis of large intestine without perforation or abscess without bleeding CPT copyright 2015 [employer]. All rights reserved. The codes documented in this report are preliminary and upon smoke and flame specialist review may be revised to meet current [...] fiber diet. Procedure Code(s): --- Professional --- 18759, PT, Colonoscopy, flexible; with biopsy, single or multiple Diagnosis Code(s): --- Professional --- Z12.11, Encounter for screening for malignant neoplasm of colon K62.1, Rectal polyp K57.30, Diverticulosis of large intestine without perforation or abscess without bleeding CPT copyright 2015 [employer]. All rights reserved. The codes documented in this report are preliminary and upon smoke and flame specialist review may be revised to meet current compliance requirements. Attending Participation: MD Jean Claude Stanton, 04/01/2016 8:30:39 AM Number of Addenda: 0 Note Initiated On: 04/01/2016 8:03 AM Jean Claude Chauhan MD [facility] [place], [place] from Last 3 Months or Most Recently Relevant to Health Maintenance Care Teams Down Filler Relationship Specialty Start Date End Date Alisha Kimball MD [address] [place] [address] PCP - General 07/08/05
--- OUTSIDE RECORDS SUMMARY | 2024-05-26 09:36 | XMS_ITS | Encounter Summary ---
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
--- OUTSIDE RECORDS SUMMARY | 2024-05-26 09:36 | XMS_ITS | Encounter Summary ---
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
--- OUTSIDE RECORDS SUMMARY | 2024-05-26 09:36 | XMS_ITS | Encounter Summary ---
Author Organization [facility] Address [address] [place] [address] Care Team Providers Care Top Icer Name Role Phone Alisha Kimball MD Primary Care Provider [phone] Encounter Details Date Type Department Care Team (Latest Contact Info) Description 08/27/1999 Orders Only Miky Sultana MD [address] [place] [address], [place] [address] Social History Tobacco Use Types Packs/Day Years Used Date Smoking Tobacco: Never Assessed Sex and Gender Information Value Date Recorded Sex Assigned at Not on file Gender Identity Not on file Sexual Orientation Not on file documented as of this encounter Plan of Treatment Upcoming Encounters Date Type Department Care Team (Late st Contact Info) Description 06/13/2024 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
== END 2024-05-23 08:53 | disposition home or self-care (01) ==
LOC: NFLDREF 05-26 09:34
PROVIDERS: PCP Family Medicine; Referring Provider Family Medicine; Visit Provider Family Medicine
DX: N39.0 Urinary tract infection, site not specified (principal)
CPT/HCPCS: 87086

== ENCOUNTER 2024-11-16 09:01 | Outpatient (CLI) | payer OTHER, SELFPAY | END 2024-11-16 09:02 | disposition home or self-care (01) | LOC: NFLDREF 11-22 03:15 | PROVIDERS: PCP Family Medicine; Referring Provider Family Medicine; Visit Provider Family Medicine | DX: E11.3291 Type 2 diabetes mellitus with mild nonproliferative diabetic retinopathy without macular edema, right eye (principal); E78.5 Hyperlipidemia, unspecified; Z79.84 Long term (current) use of oral hypoglycemic drugs | CPT/HCPCS: 80053; 80061; 82043; 82570 ==

== ENCOUNTER 2025-02-01 08:44 | Outpatient (CLI) | payer OTHER, SELFPAY | END 2025-02-01 08:45 | disposition home or self-care (01) | LOC: NFLDREF 08:45 | PROVIDERS: PCP Family Medicine; Visit Provider Family Medicine | DX: I10 Essential (primary) hypertension (principal) | CPT/HCPCS: 80048 ==

== ENCOUNTER 2025-03-06 08:49 | Outpatient (CLI) | payer OTHER, SELFPAY | END 2025-03-06 08:50 | disposition home or self-care (01) | LOC: NFLDREF 08:50 | PROVIDERS: PCP Family Medicine; Visit Provider Family Medicine | DX: I10 Essential (primary) hypertension (principal) | CPT/HCPCS: 80048 ==

== ENCOUNTER 2025-03-08 08:52 | Outpatient (CLI) | payer OTHER, SELFPAY ==
--- NOTE | 2025-03-08 09:15 | CRLHL7_ITS ---
For Patients: As a result of the Century Cures Act, medical imaging exams and procedure reports are released immediately into your electronic medical record. You may view this report before your referring provider. If you have questions, please contact your health care provider. COMPARISON: 06/03/2023, 05/29/2022, 03/11/2021 TECHNIQUE: Digital mammogram in CC and MLO projections including computer-aided detection (CAD) and tomosynthesis. BREAST COMPOSITION: The breasts are almost entirely fatty. FINDINGS: No suspicious findings. ASSESSMENT: BI-RADS 2 Benign RECOMMENDATION: Annual screening mammogram. A lay language report of this examination will be provided to the patient. Dictated by: Froy García MD @ 03/08/2025 10:45:35 (Electronically Signed)
== END 2025-03-08 08:53 | disposition home or self-care (01) ==
LOC: MAMMO 08:53
PROVIDERS: PCP Family Medicine; Visit Provider Family Medicine
DX: Z12.31 Encounter for screening mammogram for malignant neoplasm of breast (principal)
CPT/HCPCS: 77063; 77067

== ENCOUNTER 2025-05-18 14:30 | Outpatient (CLI) | payer OTHER, SELFPAY | END 2025-05-18 14:31 | disposition home or self-care (01) | LOC: NFLDREF 05-23 19:01 | PROVIDERS: PCP Family Medicine; Referring Provider Family Medicine; Visit Provider Family Medicine | DX: E11.21 Type 2 diabetes mellitus with diabetic nephropathy (principal); E11.22 Type 2 diabetes mellitus with diabetic chronic kidney disease; I12.9 Hypertensive chronic kidney disease with stage 1 through stage 4 chronic kidney disease, or unspecified chronic kidney disease; N18.2 Chronic kidney disease, stage 2 (mild); R74.8 Abnormal levels of other serum enzymes | CPT/HCPCS: 80053; 80061; 82043; 82570; 82607 ==